=== PATIENT | female | born 1975 | race Two or more races ===

== ENCOUNTER 2020-08-07 11:03 | Outpatient (REF) | payer MEDICAID, SELFPAY | END 2020-08-07 11:04 | disposition home or self-care (01) | LOC: HO.LAB 11:03 | PROVIDERS: PCP Family Medicine; Visit Provider Internal Medicine | DX: Z20.828 Contact with and (suspected) exposure to other viral communicable diseases (principal) | CPT/HCPCS: 36415; 87635 ==

== ENCOUNTER 2020-08-18 07:58 | Outpatient (REF) | payer MEDICAID, SELFPAY ==
[2020-08-18 08:37] LABS: MANUAL DIFF FLAG NO
[2020-08-18 08:47] LABS: Basophils Absolute Auto 0.1 X10*3/uL (0.0-0.2); Basophils Percent Auto 0.6 % (0-2); Eosinophils Absolute Auto 0.3 X10*3/uL (0.0-0.4); Eosinophils Percent Auto 2.6 % (0-4); Hemoglobin 13.3 g/dl (12.0-16.0); Imm Gran Abs Auto 0.04 X10*3/uL (0.00-0.03); Imm Gran Pct Auto 0.4 % (0.0-0.4); Lymphocytes Absolute Auto 2.8 X10*3/uL (1.2-4.9); Lymphocytes Percent Auto 27.8 % (20-40); Mean Corpuscular HGB Conc 32.4 g/dl (31.0-35.0); Mean Corpuscular Hemoglobin 29.6 pg (27.0-33.0); Mean Corpuscular Volume 91.1 fL (80-98); Mean Platelet Volume 10.3 fL (9.4-12.3); Monocytes Absolute Auto 0.6 X10*3/uL (0.1-1.2); Monocytes Percent Auto 5.6 % (2-11); Neutrophils Absolute Auto 6.3 X10*3/uL (2.0-8.3); Platelet Count 343 X10*3/uL (160-400); Red Cell Distribution Width 13.2 % (11.0-16.0); White Blood Count 10.1 X10*3/uL (4.8-10.8)
[2020-08-18 08:49] LABS: Estimated Average Glucose 120 mg/dL; Hemoglobin A1c % 5.8 %
[2020-08-18 09:10] LABS: Magnesium 1.5 mg/dL (1.6-2.6)
[2020-08-18 09:28] LABS: Alanine Aminotransferase 21 U/L (0-31); Alkaline Phosphatase 103 U/L (39-117); Anion Gap 14 (12-20); Aspartate Amino Transferase 17 U/L (5-31); Bilirubin Total 0.5 mg/dL (0.0-1.0); Blood Urea Nitrogen 16 mg/dL (9-16); Calcium 8.9 mg/dL (8.4-10.2); Carbon Dioxide 27 mmol/L (22-29); Chloride 104 mmol/L (96-108); Cholesterol 215 mg/dL; Estimated Glomerular Filt Rate > 60; Glucose Random 126 mg/dL (60-115); HDL Cholesterol 36 mg/dL; LDL Cholesterol Calculated 141 mg/dl; Potassium 3.8 mmol/l (3.3-5.1); Sodium 141 mmol/L (135-145); Total Protein 6.8 g/dL (6.5-8.0); Triglycerides 190 mg/dL
[2020-08-18 09:49] LABS: TSH reflex Free T4 1.14 mIU/mL (0.32-4.0); Vitamin D 25-OH Total 12.2 ng/mL (>30)
[2020-08-20 04:45] LABS: HIV AB/AG Nonreactive (Nonreactive); HIV Num 1 0.07 S/CO (0.00-0.99)
[2020-08-20 05:31] LABS: Vitamin B12 290 pg/mL (200-900)
[2020-08-22 12:47] LABS: Vitamin B1 21 nmol/L (8-30)
== END 2020-08-18 07:59 | disposition home or self-care (01) ==
LOC: HO.LAB 07:58
PROVIDERS: Nurse Practitioner Family; PCP Family Medicine; Visit Provider Family Medicine
DX: Z11.4 Encounter for screening for human immunodeficiency virus [HIV] (principal); R20.0 Anesthesia of skin; R53.83 Other fatigue; I10 Essential (primary) hypertension
CPT/HCPCS: 36415; 80053; 80061; 82306; 82607; 83036; 83735; 84425; 84443; 85025; 87389

== ENCOUNTER 2020-08-24 10:34 | Emergency (ER) | payer MEDICAID, SELFPAY ==
--- NOTE | 2020-08-24 12:04 | ED_ITS ---
HPI - Headache General Chief Complaint: Headache Stated Complaint: HIGH BLOOD PRESSURE Time Seen by Provider: 08/24/20 12:04 Source: patient Mode of arrival: ambulatory History of Present Illness HPI Narrative: Defers a 44-year-old female with past medical history that is significant for anxiety disorder, depression, hypertension, history of breast cancer status post right mastectomy also history of right upper extremity DVT, osteoporosis, gastroesophageal reflux disease as well as longstanding history of alcohol abuse she frequently drinks wine coolers and reports to me that she will frequently go on binges however has been cutting down since her last admission here in December and her last drink was 5 days ago she presents today with complaint of hypertension and headache. She reports to me that she had a routine visit with her primary care doctor today during which she was noted to have high blood pressure 160/126 and similar reading on both hands with her home blood pressure machine she also reported that she had mild headache thus prompting the primary care doctor to advise her to come to the emergency room for further evaluation and treatment. She reports to me that she will gets headaches like this when her blood pressure elevated. She does admit that there was a lapse in her taking her blood pressure medication over the past week or so because the pharmacy did not deliver her medications and delivered him ye sterday. She reports that is taking lisinopril, amlodipine and metoprolol which she took today 4 hours prior to arrival because the medications were delivered today. She otherwise denies any chest pain or shortness of breath. No syncopal episodes. Again her last alcoholic beverage was 5 days ago. States she does not go through withdrawals. She does report to me that her primary care doctor did some routine blood work in her magnesium was slightly on the lower side and she has been taking supplement for this. She denies any weakness. She does have a slight headache that she describes slight pressure in the front of the head and behind the eyes. She otherwise denies any other complaints. MD elicited complaint: headache Pertinent past history: hypertension Onset (ago): hour(s) Onset description: gradually Location: frontal Severity: mild Quality & Timing: aching Relieving factors: other ( Is starting to improve now that she took her blood pressure medication) Context: occurred at rest Associated symptoms: none Treatments prior to arrival: none Related Data Allergies Allergy/AdvReac Type Severity Reaction Status Date / Time amoxicillin [AMOXICILLIN] Allergy Intermediate rash, Unverified 07/19/20 15:11 rash/itching sulfamethoxazole Allergy Intermediate RASH Unverified 07/19/20 15:11 [From BACTRIM] trimethoprim [From BACTRIM] Allergy Intermediate RASH Unverified 07/19/20 15:11 hydrocodone [Hydrocodone] Allergy Mild ITCH Unverified 07/19/20 15:11 ibuprofen [From Motrin] Allergy Mild UPSET Unverified 07/19/20 15:11 STOMACH latex [Latex] Allergy Mild ITCH Unverified 07/19/20 15:11 Sulfa (Sulfonamide Allergy Unknown rash/itchin Verified 11/27/17 00:00 Antibiotics) g amoxicillin Allergy Unknown Uncoded 07/06/20 00:00 bactrim Allergy Unknown Uncoded 07/06/20 00:00 hydrocodone Allergy Unknown Uncoded 07/06/20 00:00 Hydrocodone-Ibuprofen Allergy Unknown rash/itchin Uncoded 11/27/17 00:00 g Latex Allergy Unknown Uncoded 11/27/17 00:00 latex Allergy Unknown Uncoded 07/06/20 00:00 motrin Allergy Unknown Uncoded 07/06/20 00:00 Review of Systems Review of Systems: Constitutional: No Weight loss, No Fever, No Chills, No Night Sweats, No Fatigue, No Malaise ENT/Mouth: No Hearing loss, No Ear Pain, No Nasal Congestion, No Sinus Pain, No Hoarseness, No sore throat, No Rhinorrhea, No Swallowing Difficulty Eyes: No Eye Pain, No Swelling, No Redness, No Foreign Body, No Discharge, No Vision Changes Cardiovascular: No Chest Pain, No SOB, No Dyspnea on Exertion, No Orthopnea, No Edema, No Palpitations Respiratory: No Cough, No Sputum, No Wheezing, No Dyspnea Gastrointestinal: No Nausea, No Vomiting, No Diarrhea, No Constipation, No abdominal Pain, No Hematochezia, No Melena Genitourinary: no irregular bleeding, No Dysuria, No Urinary Frequency, No Hematuria, No Urinary Incontinence, No Urgency, No Flank Pain, No Urinary Flow Changes, No Hesitancy Musculoskeletal: No joint pain, No Myalgias, No Joint Swelling Skin: No Skin Lesions, No rash Neuro: No Weakness, No Numbness, No Paresthesias, No Loss of Consciousness, No Dizziness, + Headache as noted in HPI Psych: No Anxiety/Panic, No Depression, No SI/HI/AH/VH, No Social Issues Heme/Lymph: No Bruising, No Bleeding,No Lymphadenopathy Endocrine: No Polyuria, No Polydipsia, No Temperature Intolerance Yes all other systems are reviewed and are negative [facility] Past Medical History Attestation statement: The following information was validated with the patient. Social History Social History Alcohol intake: current Alcohol intake frequency: a few times a week Smoking Status: Current some day smoker Use of substances other than those prescribed or required for medical reasons: No Advance Directives: Yes Advance Directives on File: Yes Advance Directives Date on File: 01/11/20 Physical Exam Vital Signs: Vital Signs: Vital Signs Temp Pulse Resp BP Pulse Ox 08/24/20 15:14 91 18 138/101 H 08/24/20 15:13 91 138/101 H 08/24/20 13:50 84 155/114 H 08/24/20 13:23 95 16 155/114 H 99 08/24/20 12:15 98.9 F 89 17 168/114 H 98 Body Mass Index 27.3 Reviewed Const: General: cooperative and healthy appearing; No acute distress or intoxicated appearing Nutritional Appearance: average body habitus Orientation/consciousness: patient oriented x3 HENMT: Head: Yes normal to inspection Ears: hearing grossly normal bilaterally Eyes: General: appearance normal, both eyes and all related structures Visual Cordero: normal visual cordero by confrontation Neck: Neck: Yes normal visual inspection and No tender Thyroid: Thyroid normal Chest: Chest palpation & inspection: normal inspection of the chest Resp: Effort & Inspection: normal respiratory effort Cardio: Jugular venous distension: no JVD GI: Inspection: Yes normal to inspection Percussion: Yes normal to percussion Auscultation: normal bowel sounds : General: Yes no CVA tenderness Back/Spine/Pelvis: Back: no CVA tenderness Skin: General skin exam: no rashes or lesions noted Neuro: General: patient oriented x3 Extrem: General: Yes normal to inspection Course Course Course Narrative: hemodynamically stable. Blood pressure 168/114 still has slight headache consistent with previous. No sudden or thunderclap headache. No signs or symptoms of alcohol withdrawal. Will check labs, lytes make sure no electrolyte derangement, normal sinus rhythm on Bedside monitor. No ectopy. Will get head CT given her significant history rule out acute intracranial process / bleed. Reevaluation(s) Reevaluation #1: resting comfortably no acute distress. She had family member deliver her [employer] she ate that and no other complaints. Hemodynamically stable. Blood pressure came down to 130/100 after 1 dose of clonidine. Head CT negative. Labs overall stable. Slight hypo Mag of 1.5 she did start taking her magnesium supplement today. In addition she is already on metoprolol / lisinopril and amlodipine which she resumed today will not make any adjustments will advise her to continue taking these and stressed the importance of adherence /potential complications of hypertension. MDM - Headache Differential Diagnosis Differential diagnosis: Likely migraine ( Hypertensive headache), tension headache and headache; Unlikely subarachnoid hemorrhage, meningitis, sinusitis and postconcussion syndrome Medical Records Attestation: I reviewed the patient's medical records. Medical records narrative: 01/10/2020 admission/ discharge note reviewed with a discharge diagnosis of hypertensive urgency, elevated bilirubin, alcohol abuse. Lab Data Result diagrams: 08/24/20 13:36 08/24/20 13:36 Labs: Lab Results 08/24/20 08/24/20 08/24/20 Range/Units 13:36 13:36 13:36 WBC 9.9 (4.8-10.8) X10*3/uL RBC 4.40 (4.20-5.50) X10*6/uL Hgb 13.3 (12.0-16.0) g/dl Hct 40.2 (37-47) % MCV 91.4 (80-98) fL MCH 30.2 (27.0-33.0) pg MCHC 33.1 (31.0-35.0) g/dl RDW 13.2 (11.0-16.0) % Plt Count 310 (160-400) X10*3/uL MPV 10.7 (9.4-12.3) fL Immature Gran % (Auto) 0.5 H (0.0-0.4) % Neut % (Auto) 66.8 (45-73) % Lymph % (Auto) 24.1 (20-40) % Cuming % (Auto) 5.9 (2-11) % Eos % (Auto) 2.2 (0-4) % Baso % (Auto) 0.5 (0-2) % Lymph # (Auto) 2.4 (1.2-4.9) X10*3/uL Cuming # (Auto) 0.6 (0.1-1.2) X10*3/uL Eos # (Auto) 0.2 (0.0-0.4) X10*3/uL Baso # (Auto) 0.1 (0.0-0.2) X10*3/uL Abs Immat Gran (auto) 0.05 H (0.00-0.03) X10*3/uL Absolute Neuts (auto) 6.6 (2.0-8.3) X10*3/uL Absolute Nucleated RBC 0.000 (0.0-0.012) X10*3/uL Nucleated RBC % (auto) 0.0 (0.0-0.2) /100WBC Sodium 140 (135-145) mmol/L Potassium 4.3 (3.3-5.1) mmol/l Chloride 104 (96-108) mmol/L Carbon Dioxide 27 (22-29) mmol/L Anion Gap 13 (12-20) BUN 16 (9-16) mg/dL Creatinine 0.77 (0.5-1.4) mg/dL Estim Creat Clear Calc 99.0 Estimated GFR > 60 Random Glucose 110 (60-115) mg/dL Calcium 8.7 (8.4-10.2) mg/dL Magnesium 1.8 (1.6-2.6) mg/dL Total Bilirubin 0.5 (0.0-1.0) mg/dL Direct Bilirubin 0.2 (0.0-0.5) mg/dL AST 21 (5-31) U/L ALT 25 (0-31) U/L Alkaline Phosphatase 89 (39-117) U/L Total Protein 6.4 L (6.5-8.0) g/dL Albumin 3.7 (3.5-5.0) g/dL Urine Color Urine Appearance Urine pH (5.0-8.0) Ur Specific [place] (1.005-1.025) Urine Protein (NEG-TRACE) MG/DL Urine Glucose (UA) (NEG) MG/DL Urine Ketones (NEG) MG/DL Urine Blood (NEG) Urine Nitrite (NEG) Ur Leukocyte Esterase (NEG) Urine RBC (0) /HPF Urine WBC (0-4) /HPF Ur Squamous Epith Cells /LPF Urine Bacteria /LPF Urine Mucus /LPF Urine Opiates Screen (Not Detect) Ur Barbiturates Screen (Not Detect) Ur Phencyclidine Scrn (Not Detect) Ur Amphetamines Screen (Not Detect) U Benzodiazepines Scrn (Not Detect) Urine Cocaine Screen (Not Detect) U Marijuana (THC) Screen (Not Detect) Ethyl Alcohol 08/24/20 08/24/20 08/24/20 Range/Units 13:36 13:53 13:53 WBC (4.8-10.8) X10*3/uL RBC (4.20-5.50) X10*6/uL Hgb (12.0-16.0) g/dl Hct (37-47) % MCV (80-98) fL MCH (27.0-33.0) pg MCHC (31.0-35.0) g/dl RDW (11.0-16.0) % Plt Count (160-400) X10*3/uL MPV (9.4-12.3) fL Immature Gran % (Auto) (0.0-0.4) % Neut % (Auto) (45-73) % Lymph % (Auto) (20-40) % Cuming % (Auto) (2-11) % Eos % (Auto) (0-4) % Baso % (Auto) (0-2) % Lymph # (Auto) (1.2-4.9) X10*3/uL Cuming # (Auto) (0.1-1.2) X10*3/uL Eos # (Auto) (0.0-0.4) X10*3/uL Baso # (Auto) (0.0-0.2) X10*3/uL Abs Immat Gran (auto) (0.00-0.03) X10*3/uL Absolute Neuts (auto) (2.0-8.3) X10*3/uL Absolute Nucleated RBC (0.0-0.012) X10*3/uL Nucleated RBC % (auto) (0.0-0.2) /100WBC Sodium (135-145) mmol/L Potassium (3.3-5.1) mmol/l Chloride (96-108) mmol/L Carbon Dioxide (22-29) mmol/L Anion Gap (12-20) BUN (9-16) mg/dL Creatinine (0.5-1.4) mg/dL Estim Creat Clear Calc Estimated GFR Random Glucose (60-115) mg/dL Calcium (8.4-10.2) mg/dL Magnesium (1.6-2.6) mg/dL Total Bilirubin (0.0-1.0) mg/dL Direct Bilirubin (0.0-0.5) mg/dL AST (5-31) U/L ALT (0-31) U/L Alkaline Phosphatase (39-117) U/L Total Protein (6.5-8.0) g/dL Albumin (3.5-5.0) g/dL Urine Color YELLOW Urine Appearance CLEAR Urine pH 7.0 (5.0-8.0) Ur Specific [place] 1.020 (1.005-1.025) Urine Protein NEG (NEG-TRACE) MG/DL Urine Glucose (UA) NEG (NEG) MG/DL Urine Ketones NEG (NEG) MG/DL Urine Blood NEG (NEG) Urine Nitrite NEG (NEG) Ur Leukocyte Esterase NEG (NEG) Urine RBC 0 (0) /HPF Urine WBC 0 (0-4) /HPF Ur Squamous Epith Cells 1+ /LPF Urine Bacteria NONE /LPF Urine Mucus TRACE /LPF Urine Opiates Screen Not Detected (Not Detect) Ur Barbiturates Screen Not Detected (Not Detect) Ur Phencyclidine Scrn Not Detected (Not Detect) Ur Amphetamines Screen Not Detected (Not Detect) U Benzodiazepines Scrn Not Detected (Not Detect) Urine Cocaine Screen Not Detected (Not Detect) U Marijuana (THC) Screen Not Detected (Not Detect) Ethyl Alcohol Cancelled Imaging Data CT scan - head: Radiologist's impression: [address] [address] [address] Scan Report Signed Patient: Maged Cast#: [id number] : 1975Acct:[id number] Age/Sex: 44 / FADM Date: 08/24/20 Loc: HO.ED Attending Dr: Ordering Physician: Ernesto Arias RADIO ELECTRICIAN Date of Service: 08/24/20 Procedure(s): CT head/brain wo con Accession Number(s): [id number] cc: Ernesto Arias RADIO ELECTRICIAN~ EXAMINATION: CT HEAD WITHOUT CONTRAST CLINICAL INFORMATION: Headache and hypertension. COMPARISON: CT brain dated 08/26/2015; MRI dated 07/02/2015. TECHNIQUE: Contiguous axial imaging was performed from the skull base to vertex without intravenous administration of contrast. Multiplanar reformatted images are submitted. This CT examination was performed using dose optimization techniques as appropriate, variously including the following: *Automated exposure control *Adjustment of mA and/or kV according to patient size (this includes techniques or standardized protocols for targeted exams where dose is matched to indication/reason for exam; i.e. extremities or head) *Use of iterative reconstruction technique DLP: 639 mGy-cm FINDINGS: There is no evidence of acute intracranial hemorrhage or territorial infarction. No abnormal mass effect or midline shift is seen. Jimenez to white matter differentiation is well preserved. No extra-axial fluid collections are identified. The ventricles are normal in size. There is no abnormal attenuation within the brain parenchyma. The osseous structures and soft tissues are normal. The mastoid air cells and visualized portions of the paranasal sinuses are well aerated. CT/CT head/brain wo con IMPRESSION: No acute intracranial pathology. Dictated By:POLO MARCOS MD Signed By:<Electronically signed by POLO MARCOS MD in OV>08/24/20 1245 DD/ 1211 TD/TT: Assessment Services Manager: ALEXUS Discharge Plan Discharge Clinical Impression: Hypomagnesemia Headache Qualifiers: Headache type: unspecified Headache chronicity pattern: unspecified pattern Intractability: not intractable Qualified Code(s): R51.9 - Headache, unspecified Hypertension Qualifiers: Hypertension type: unspecified Qualified Code(s): I10 - Essential (primary) hypertension Patient Disposition: Home, Self-Care Instructions: Acute Headache (ED), Hypertension (ED), Hypomagnesemia (ED) Additional Instructions: please take blood pressure medication as prescribed also taking a magnesium supplement as prescribed Stop drinking alcohol Seek detox Return if any concerns or worsening symptoms otherwise follow up with her primary care doctor for blood pressure recheck in 3 days Thank you Referrals: Shereen Latham MD [Primary Care Provider] - 2 days
--- NOTE | 2020-08-24 12:11 | CT_ITS ---
EXAMINATION: CT HEAD WITHOUT CONTRAST CLINICAL INFORMATION: Headache and hypertension. COMPARISON: CT brain dated 08/26/2015; MRI dated 07/02/2015. TECHNIQUE: Contiguous axial imaging was performed from the skull base to vertex without intravenous administration of contrast. Multiplanar reformatted images are submitted. This CT examination was performed using dose optimization techniques as appropriate, variously including the following: *Automated exposure control *Adjustment of mA and/or kV according to patient size (this includes techniques or standardized protocols for targeted exams where dose is matched to indication/reason for exam; i.e. extremities or head) *Use of iterative reconstruction technique DLP: 639 mGy-cm FINDINGS: There is no evidence of acute intracranial hemorrhage or territorial infarction. No abnormal mass effect or midline shift is seen. Jimenez to white matter differentiation is well preserved. No extra-axial fluid collections are identified. The ventricles are normal in size. There is no abnormal attenuation within the brain parenchyma. The osseous structures and soft tissues are normal. The mastoid air cells and visualized portions of the paranasal sinuses are well aerated. CT/CT head/brain wo con IMPRESSION: No acute intracranial pathology.
[2020-08-24 12:15] VITALS: BP 168/114; PULSE 89; RESP 17; TEMP 37.2; O2SAT 98; BMI 27.3
[2020-08-24 13:23] VITALS: BP 155/114; PULSE 95; RESP 16; O2SAT 99
[2020-08-24 13:42] LABS: MANUAL DIFF FLAG NO
[2020-08-24 13:47] LABS: Basophils Absolute Auto 0.1 X10*3/uL (0.0-0.2); Basophils Percent Auto 0.5 % (0-2); Eosinophils Absolute Auto 0.2 X10*3/uL (0.0-0.4); Eosinophils Percent Auto 2.2 % (0-4); Hematocrit 40.2 % (37-47); Hemoglobin 13.3 g/dl (12.0-16.0); Imm Gran Abs Auto 0.05 X10*3/uL (0.00-0.03); Imm Gran Pct Auto 0.5 % (0.0-0.4); Lymphocytes Absolute Auto 2.4 X10*3/uL (1.2-4.9); Lymphocytes Percent Auto 24.1 % (20-40); Mean Corpuscular HGB Conc 33.1 g/dl (31.0-35.0); Mean Corpuscular Hemoglobin 30.2 pg (27.0-33.0); Mean Corpuscular Volume 91.4 fL (80-98); Mean Platelet Volume 10.7 fL (9.4-12.3); Monocytes Absolute Auto 0.6 X10*3/uL (0.1-1.2); Monocytes Percent Auto 5.9 % (2-11); Neutrophils Absolute Auto 6.6 X10*3/uL (2.0-8.3); Neutrophils Percent Auto 66.8 % (45-73); Platelet Count 310 X10*3/uL (160-400); Red Cell Distribution Width 13.2 % (11.0-16.0); White Blood Count 9.9 X10*3/uL (4.8-10.8)
[2020-08-24 13:50] VITALS: BP 155/114; PULSE 84
[2020-08-24] MEDS: cloNIDine HCL 0.1 MG TABLET PO ×2 (13:50→15:13)
[2020-08-24] MEDS: Acetaminophen 325 MG TABLET 650 MG PO (13:50)
[2020-08-24 14:01] LABS: Glucose Urine UA NEG (NEG); Leukocyte Esterase Urine NEG (NEG); Nitrite Urine NEG (NEG); Urine Blood NEG (NEG); Urine Ketones NEG (NEG); Urine Protein NEG (NEG-TRACE)
[2020-08-24 14:07] LABS: Magnesium 1.8 mg/dL (1.6-2.6)
[2020-08-24 14:07] LABS: Appearance Urine CLEAR; Color Urine YELLOW
[2020-08-24 14:09] LABS: Alanine Aminotransferase 25 U/L (0-31); Albumin Level 3.7 g/dL (3.5-5.0); Alkaline Phosphatase 89 U/L (39-117); Anion Gap 13 (12-20); Aspartate Amino Transferase 21 U/L (5-31); Bilirubin Direct 0.2 mg/dL (0.0-0.5); Bilirubin Total 0.5 mg/dL (0.0-1.0); Blood Urea Nitrogen 16 mg/dL (9-16); Calcium 8.7 mg/dL (8.4-10.2); Carbon Dioxide 27 mmol/L (22-29); Chloride 104 mmol/L (96-108); Estimated Glomerular Filt Rate > 60; Glucose Random 110 mg/dL (60-115); Potassium 4.3 mmol/l (3.3-5.1); Sodium 140 mmol/L (135-145); Total Protein 6.4 g/dL (6.5-8.0)
[2020-08-24 14:19] LABS: RBC Urine 0 /HPF (0); WBC Urine 0 /HPF (0-4)
[2020-08-24 14:20] LABS: Mucus Urine TRACE /LPF; Squamous Epithelial Cell Urine 1+ /LPF
[2020-08-24 14:32] LABS: Amphetamine Screen Urine Not Detected (Not Detect); Barbiturates, Urine Not Detected (Not Detect); Benzodiazepines Screen Urine Not Detected (Not Detect); Cannabinoid Screen Urine Not Detected (Not Detect); Cocaine Screen Urine Not Detected (Not Detect); Opiate Screen Urine Not Detected (Not Detect); Phencyclidine Screen Urine Not Detected (Not Detect)
[2020-08-24 15:13] VITALS: BP 138/101; PULSE 91
[2020-08-24 15:14] VITALS: BP 138/101; PULSE 91; RESP 18
[2020-08-24 16:17] VITALS: BP 135/77; PULSE 88
== END 2020-08-24 16:18 | disposition home or self-care (01) ==
PROVIDERS: Nurse Practitioner Primary Care; Emergency Provider Emergency Medicine; PCP Family Medicine
DX: R51.9 Headache, unspecified (principal); I10 Essential (primary) hypertension; E83.42 Hypomagnesemia; F17.200 Nicotine dependence, unspecified, uncomplicated; F10.10 Alcohol abuse, uncomplicated; Z79.899 Other long term (current) drug therapy
CPT/HCPCS: 36415; 70450; 80048; 80076; 80307; 81001; 83735; 85025; 99284

== ENCOUNTER 2020-09-03 19:38 | Emergency (ER) | payer MEDICAID, SELFPAY ==
[2020-09-03 20:03] VITALS: BP 180/95; PULSE 98; RESP 18; TEMP 36.6; O2SAT 99; BMI 27.3
--- NOTE | 2020-09-03 21:09 | XR_ITS ---
EXAMINATION: RIGHT ANKLE 3 VIEWS CLINICAL INFORMATION: Right ankle pain after fall. COMPARISON: None. TECHNIQUE: AP, lateral, oblique views of the right ankle were obtained. FINDINGS: There is soft tissue swelling overlying the lateral malleolus. Lateral to the talus, inferior to the lateral malleolus, there is a khanh of ossification. There are moderate-sized calcaneal spurs. There is no ankle joint effusion. XR/XR ankle RT min 3V IMPRESSION: Soft tissue swelling overlying lateral malleolus. Inferior to this, there is a khanh of ossification lateral to the talus which is nonspecific, though could correspond to a tiny avulsion. Calcaneal spurs.
--- NOTE | 2020-09-03 21:09 | ED_ITS ---
HPI - Extremity Injury (Lower) General Chief Complaint: Extremity Injury, Lower Stated Complaint: fall Time Seen by Provider: 09/03/20 21:09 Source: patient Mode of arrival: wheelchair History of Present Illness HPI Narrative: This is a 44-year-old female who presents after having misstepped down 3 steps causing her right ankle to twist and subsequent pain and inability to weightbear. She denies any numbness / tingling / weakness distal to the ankle and states that she already has an ACL injury on the left knee. Otherwise, she states that she no longer gets her menstrual periods. Related Data Allergies Allergy/AdvReac Type Severity Reaction Status Date / Time amoxicillin [AMOXICILLIN] Allergy Intermediate rash, Verified 09/03/20 21:42 rash/itching sulfamethoxazole Allergy Intermediate RASH Verified 09/03/20 21:42 [From BACTRIM] trimethoprim [From BACTRIM] Allergy Intermediate RASH Verified 09/03/20 21:42 hydrocodone [Hydrocodone] Allergy Mild ITCH Verified 09/03/20 21:42 ibuprofen [From Motrin] Allergy Mild UPSET Verified 09/03/20 21:42 STOMACH latex [Latex] Allergy Mild ITCH Verified 09/03/20 21:42 Sulfa (Sulfonamide Allergy Unknown rash/itchin Verified 09/03/20 21:42 Antibiotics) g amoxicillin Allergy Unknown Unknown Uncoded 09/03/20 21:42 bactrim Allergy Unknown Unknown Uncoded 09/03/20 21:42 hydrocodone Allergy Unknown Unknown Uncoded 09/03/20 21:42 Hydrocodone-Ibuprofen Allergy Unknown rash/itchin Uncoded 11/27/17 00:00 g Latex Allergy Unknown Unknown Uncoded 09/03/20 21:42 latex Allergy Unknown Unknown Uncoded 09/03/20 21:42 motrin Allergy Unknown Unknown Uncoded 09/03/20 21:42 Review of Systems Review of Systems: Pertinent positives and negatives as stated in HPI 10 point review of systems is otherwise negative. [facility] Past Medical History Source: nursing notes reviewed Social History Social History Alcohol intake: current Alcohol intake frequency: a few times a week Smoking Status: Current some day smoker Use of substances other than those prescribed or required for medical reasons: No Advance Directives: No Advance Directives Information Provided: No Advance Directives Date on File: 01/11/20 Physical Exam Vital Signs: Vital Signs: Vital Signs Temp Pulse Resp BP Pulse Ox 09/03/20 20:03 97.9 F 98 18 180/95 H 99 Body Mass Index 27.3 VITAL SIGNS: Reviewed. GENERAL: Well developed, well nourished, in no acute distress. HEAD: Normocephalic/atraumatic, EYES: PERRLA, EOMI intact without pain, no nystagmus/pallor/icterus noted EARS: Ext canals without abnormality, TMs non-bulging and non-erythematous NOSE: Nares patent bilateral OROPHARYNX: no oral lesions noted, posterior pharynx clear and non-erythematous without noted tonsillar enlargement/erythema/exudates NECK: Supple, no adenopathy LUNGS: Normal breath sounds. No adventitious sounds or accessory muscle use. SpO2<99> CARDIOVASCULAR: Regular rate and rhythm without noted murmurs, no JVD or lower extremity edema. ABDOMEN: Soft, non-tender, non-distended with bowel sounds. No rigidity. No guarding. No palpable masses or hernias noted MUSCULOSKELETAL: No tenderness, deformities, or effusions noted on gross inspection. EXTREMITIES: No cyanosis, clubbing or edema; RIGHT ANKLE: Swelling noted to the lateral malleolus, capillary refill less than 3 seconds, neurovascularly intact otherwise with palpable DP/ PT pulses. SKIN: Inspection of the skin reveals no rashes, ulcerations, jaundice, pallor, or petechiae. NEUROLOGIC: Alert and oriented x 4. Strength and sensation to light touch were grossly intact x 4. Course Course Course Narrative: This is a 44-year-old female with history and clinical presentation most consistent with likely right ankle sprain but will evaluate for the possibility of fracture/dislocation and she will be treated with analgesics And ice. On review of all investigations x-ray findings are consistent with likely sprain although there is an equivocal finding for possible avulsion. Will provide patient with Zay wrap and crutches and instructions to follow-up with orthopedics tomorrow morning by calling the office. Discharge Plan Discharge Clinical Impression: Ankle sprain and strain Patient Disposition: Home, Self-Care Instructions: Ankle Sprain (ED) Additional Instructions: 1. Tylenol 1000 mg, orally, every 6 hours as needed for pain control. Do not exceed 4000 mg within 24 hours. 2. Recommend lidocaine patch, these are available [id number] at any [facility]/ [facility]/[employer], apply to area of maximal tenderness as directed on the outside packaging. 3. Apply ice, 10-15 minutes, 3 to 4 times a day, please do not apply directly to exposed skin. 4. Keep extremity elevated as much as possible and use crutches with gradual increase in weight-bearing as tolerated. 4. Please follow-up with the orthopedic office here at [facility] for further evaluation should do not show any improvement over the next 3-5 days. The patient and/or family acknowledge understanding of results (as applicable), diagnosis, treatment plan, need for follow up, and symptoms that should prompt a return to the emergency room. Referrals: Shereen Latham MD [Primary Care Provider] - 2 days ( Right ankle sprain possible avulsion fracture) Anselmo Gates MD [Physician] - 2 days ( right ankle sprain, radiologic evidence equivocal for possible avulsion.)
[2020-09-03] MEDS: Acetaminophen 325 MG TABLET 975 MG PO (21:46)
== END 2020-09-03 22:36 | disposition home or self-care (01) ==
PROVIDERS: Emergency Provider Student in an Organized Health Care Education/Training Program; PCP Family Medicine
DX: S93.401A Sprain of unspecified ligament of right ankle, initial encounter (principal); M25.571 Pain in right ankle and joints of right foot; W10.9XXA Fall (on) (from) unspecified stairs and steps, initial encounter; Y93.01 Activity, walking, marching and hiking; Y92.9 Unspecified place or not applicable; Y99.9 Unspecified external cause status; F17.200 Nicotine dependence, unspecified, uncomplicated; Z71.6 Tobacco abuse counseling
CPT/HCPCS: 73610; 99283

== ENCOUNTER 2020-09-24 15:00 | Outpatient (RCR) | payer MEDICAID, SELFPAY ==
--- NOTE | 2020-09-13 14:56 | MHC.PT.EP ---
[facility] [place] Office [place] Office [place] Office [address] [phone] F: [phone] F: [phone] F: [phone] F: [phone] Physical Therapy Plan of Care Date of Evaluation: 09/13/20 Date of Surgery: Diagnosis: L knee ACL rupture, lateral meniscus tear, primary OA. ACL PREHAB-ROM, QUAD STRENGTH Assessment: 44 y/o F referred to PT for ACL prehab-ROM, quad strength other tear of lateral meniscus of left knee as current injury initial encounter, rupture of anterior cruciate ligament of left knee initial encounter, and primary osteoarthritis of left knee. She fell about one year ago injuring her L knee. Since then, her L knee gives out often and she falls a lot. She fell one month ago spraining her R ankle. Anticipates L ACL repair but will have prehab first. Currently she has pain and difficulty with sitting > 30min, standing > 30min, walking, sleeping, and ascending/descending stairs (step to pattern.) PMH signifcant for R breast CA s/p mastectomy 2009, HTN, anxiety, depression, hx ETOH. Examination shows decreased L quad strength, decreased B hip strength, slightly decreased knee flexion, impaired balance, and impaired gait pattern. Recommend PT2x/week for 4 weeks to address impairments, implement HEP, and optimize functional mobility. Frequency and Duration: The patient will be seen 2x/week for 4 weeks Short Term Goals: 2 weeks: 1. Initiate HEP 2. Improve L knee flexion to 125 3. Demonstrate 3x10 SLR without quad lag Usp Goals: 4 weeks: 1. Pt will ambulate > 25min and pain < 3/10 2. Pt will ascend.descend stairs in step through pattern and one rail 3. I with HEP and self management of sx Treatment Plan: Modalities to reduce pain, spasms and effusion. Manual therapy to restore motion and function. Therapeutic exercise to improve strength and flexibility. Neuromuscular re-education for posture and balance. Therapeutic activities to return to functional activities of daily living. Please sign and return to therapist. Thank you for your referral.
--- NOTE | 2020-11-12 08:20 | MHC.PT.DC ---
[facility] [place] Office [place] Office [place] Office [address] 140 [facility] [phone] F: [phone] F: [phone] F: [phone] F: [phone] Physical Therapy Discharge Report Diagnosis: L knee ACL rupture, lateral meniscus tear, primary OA. ACL PREHAB-ROM, QUAD STRENGTH Date of Surgery: Date of Evaluation: 09/13/20 Date of Discharge: 11/12/20 Treatments to Date: 4 Cancellations to Date: 0 No Shows to Date: 1 Discharge Status: Patient Elected to Stop Recommend MD Follow-up Discharge Summary: D/c due to other health reasons. Patient with poorly controlled BP and she has been following up with her PCP. At this time, will hold PT until BP regulated. Electronically signed by: Lucille Flores, PT Please sign and return to therapist. Thank you for your referral.
== END 2020-11-12 08:20 | disposition other institution (70) ==
LOC: HO.PT 15:00
PROVIDERS: PCP Family Medicine; Visit Provider Physician Assistant
DX: S83.282D Other tear of lateral meniscus, current injury, left knee, subsequent encounter (principal); S83.512D Sprain of anterior cruciate ligament of left knee, subsequent encounter; M17.12 Unilateral primary osteoarthritis, left knee
CPT/HCPCS: 97110; 97162

== ENCOUNTER 2021-07-26 12:36 | Outpatient (REF) | payer MEDICAID, SELFPAY ==
--- NOTE | ~2021-07-26 | XR_ITS ---
EXAMINATION: KNEE X-RAY CLINICAL INFORMATION: Pain COMPARISON: Previous knee x-rays October 2019 and November 2011 TECHNIQUE: Standing AP view of both knees and lateral and sunrise view of the left knee FINDINGS: Left: Bone alignment is normal. No fracture or dislocation is seen. There is mild arthritis at the medial femoral tibial and patellofemoral joints with joint space narrowing and osteophyte formation. There is a small osteophyte at the quadriceps tendon insertion to the patella. There is a small joint effusion. Standing AP view of the right knee demonstrates previous ACL repair. There is arthritis at the left at the lateral and medial femoral tibial joints. XR/XR knee LT 2V IMPRESSION: Mild left knee arthritis at the medial femoral tibial and patellofemoral joints and small joint effusion.
--- NOTE | ~2021-07-26 | XR_ITS ---
EXAMINATION: KNEE X-RAY CLINICAL INFORMATION: Pain COMPARISON: Previous knee x-rays October 2019 and November 2011 TECHNIQUE: Standing AP view of both knees and lateral and sunrise view of the left knee FINDINGS: Left: Bone alignment is normal. No fracture or dislocation is seen. There is mild arthritis at the medial femoral tibial and patellofemoral joints with joint space narrowing and osteophyte formation. There is a small osteophyte at the quadriceps tendon insertion to the patella. There is a small joint effusion. Standing AP view of the right knee demonstrates previous ACL repair. There is arthritis at the left at the lateral and medial femoral tibial joints. XR/XR knee standing BI IMPRESSION: Mild left knee arthritis at the medial femoral tibial and patellofemoral joints and small joint effusion.
== END 2021-07-26 12:37 | disposition home or self-care (01) ==
LOC: HO.HOSX 12:36
PROVIDERS: Visit Provider Physician Assistant
DX: M17.32 Unilateral post-traumatic osteoarthritis, left knee (principal); M25.561 Pain in right knee
CPT/HCPCS: 20610; 73560; 73565; 99212

== ENCOUNTER 2021-07-26 23:23 | Emergency (ER) | payer MEDICAID, SELFPAY ==
--- NOTE | 2021-07-26 | ECG_ITS ---
Test Reason : CHEST TIGHTNESS Blood Pressure : / mmHG Vent. Rate : 106 BPM Atrial Rate : 106 BPM P-R Int : 170 ms QRS Dur : 086 ms QT Int : 362 ms P-R-T Axes : 063 011 113 degrees QTc Int : 480 ms Sinus tachycardia T wave abnormality, consider lateral ischemia ST elevation in Inferior leads Abnormal ECG When compared with ECG of 08-JAN-2020 07:55, T wave inversion now evident in Lateral leads ST elevation now present in Inferior leads Referred By: Generic ED Physician Electronically Signed By:DONAVAN LOZANO
--- NOTE | ~2021-07-26 | XR_ITS ---
EXAMINATION: XR CHEST CLINICAL INFORMATION: Chest tightness COMPARISON: 01/08/2020 TECHNIQUE: 2 views of the chest were obtained. FINDINGS: The lungs are clear with no focal consolidation. No evidence of pneumothorax, pulmonary edema, or pleural effusions. The cardiomediastinal silhouette is unremarkable. No acute osseous findings. XR/XR chest 2V IMPRESSION: No acute cardiopulmonary findings.
[2021-07-26 23:41] VITALS: BP 149/82; PULSE 110; RESP 20; TEMP 36.6; O2SAT 97; BMI 30.9
[2021-07-27 01:45] LABS: MANUAL DIFF FLAG NO
[2021-07-27 01:57] LABS: Basophils Absolute Auto 0.1 X10*3/uL (0.0-0.2); Basophils Percent Auto 0.8 % (0-2); Eosinophils Absolute Auto 0.2 X10*3/uL (0.0-0.4); Eosinophils Percent Auto 2.5 % (0-4); Hematocrit 37.1 % (37-47); Hemoglobin 12.5 g/dl (12.0-16.0); Imm Gran Abs Auto 0.01 X10*3/uL (0.00-0.03); Imm Gran Pct Auto 0.2 % (0.0-0.4); Lymphocytes Percent Auto 31.8 % (20-40); Mean Corpuscular HGB Conc 33.7 g/dl (31.0-35.0); Mean Platelet Volume 10.7 fL (9.4-12.3); Monocytes Absolute Auto 0.6 X10*3/uL (0.1-1.2); Monocytes Percent Auto 8.6 % (2-11); Neutrophils Absolute Auto 3.6 X10*3/uL (2.0-8.3); Neutrophils Percent Auto 56.1 % (45-73); Platelet Count 248 X10*3/uL (160-400); Red Blood Count 4.17 X10*6/uL (4.20-5.50); White Blood Count 6.4 X10*3/uL (4.8-10.8)
[2021-07-27 02:03] LABS: COVID-19 Test Negative (Negative)
[2021-07-27 02:07] LABS: Alanine Aminotransferase 35 U/L (0-31); Alkaline Phosphatase 102 U/L (39-117); Anion Gap 18 (12-20); Aspartate Amino Transferase 31 U/L (5-31); Bilirubin Total 0.8 mg/dL (0.0-1.0); Blood Urea Nitrogen 16 mg/dL (9-16); Calcium 9.3 mg/dL (8.4-10.2); Carbon Dioxide 23 mmol/L (22-29); Chloride 102 mmol/L (96-108); Creatinine Clr Calc Pharmacy 79.9; Estimated Glomerular Filt Rate 59; Glucose Random 121 mg/dL (60-115); Potassium 2.9 mmol/L (3.3-5.1); Sodium 140 mmol/L (135-145); Total Protein 6.8 g/dL (6.5-8.0)
[2021-07-27 02:08] LABS: Troponin-I High Sensitivity 53.9 ng/L (<3.5-17.0)
--- NOTE | 2021-07-27 03:16 | ED_ITS ---
HPI - General Adult General Chief complaint: Anxiety Stated complaint: Chest congestion Time Seen by Provider: 07/27/21 02:14 Source: patient Mode of arrival: ambulatory Limitations: no limitations History of Present Illness HPI narrative: 45-year-old female who presents emergency department for evaluation of chest pain. She states that the pain came on gradually 2 nights prior. She describes the pain as a tightness and sharp pain. She states that the tightness is a constant pain which is located in her left chest. The pain is 6/10 at its worst. She states she has an intermittent sharp stabbing pain which will last seconds and she gets multiple times a day. She states that she is feeling short of breath and has dyspnea on exertion. She states that the tightness is worse with breathing. She denied fever, chills, nausea, vomiting, diarrhea. The patient states she does use intranasal cocaine but has not used in 2 weeks. She states she does have significant anxiety and she did drink alcohol prior to coming to the emergency room to try the treat her anxiety. Related Data Home Medications Medication Instructions Recorded Confirmed cetirizine [Zyrtec] PO 07/26/21 lisinopril 30 mg tablet 30 mg PO DAILY 07/26/21 omeprazole 40 mg capsule,delayed 40 mg PO DAILY 07/26/21 release Allergies Allergy/AdvReac Type Severity Reaction Status Date / Time amoxicillin [AMOXICILLIN] Allergy Intermediate rash, Verified 07/26/21 23:41 rash/itching sulfamethoxazole Allergy Intermediate RASH Verified 07/26/21 23:41 [From BACTRIM] trimethoprim [From BACTRIM] Allergy Intermediate RASH Verified 07/26/21 23:41 hydrocodone [Hydrocodone] Allergy Mild ITCH Verified 07/26/21 23:41 ibuprofen [From Motrin] Allergy Mild UPSET Verified 07/26/21 23:41 STOMACH latex [Latex] Allergy Mild ITCH Verified 07/26/21 23:41 Sulfa (Sulfonamide Allergy Unknown rash/itchin Verified 07/26/21 23:41 Antibiotics) g amoxicillin Allergy Unknown Unknown Uncoded 07/26/21 23:41 bactrim Allergy Unknown Unknown Uncoded 07/26/21 23:41 hydrocodone Allergy Unknown Unknown Uncoded 07/26/21 23:41 Hydrocodone-Ibuprofen Allergy Unknown rash/itchin Uncoded 07/26/21 23:41 g Latex Allergy Unknown Unknown Uncoded 07/26/21 23:41 latex Allergy Unknown Unknown Uncoded 07/26/21 23:41 motrin Allergy Unknown Unknown Uncoded 07/26/21 23:41 Review of Systems Review of Systems: Yes all other systems are reviewed and are negative [facility] Past Medical History [facility] Narrative: Past medical history: Hypertension, GERD, anxiety, fibromyalgia, arthritis, COVID infection, breast cancer 11 years prior Past surgical history: Right mastectomy 11 years prior, right ACL repair, hysterectomy. Social history: The patient occasionally smokes cigarettes. She states that she drinks 4 alcoholic beverages per day. She admits to using intranasal cocaine but has not used in 2 weeks. Medical History Hypertension Social History Social History Alcohol intake: current Alcohol intake frequency: a few times a week Advance Directives: Yes Advance Directives on File: Yes Advance Directives Date on File: 01/11/20 Patient : No Physical Exam Vital Signs: Vital Signs: Last Vital Signs Temp 97.8 F 07/26/21 23:41 Pulse 106 H 07/27/21 03:27 Resp 18 07/27/21 03:27 BP 138/91 H 07/27/21 03:27 Pulse Ox 98 07/27/21 03:27 Body Mass Index 30.9 Const: General: cooperative and no acute distress Orientation/consci ousness: oriented to person and oriented to place Limitations: no limitations HENMT: Head: Yes normal to inspection, Yes normocephalic and Yes atraumatic Ears: external ears normal General nose exam: Normal external nose present Face and sinus: Yes normal facial exam Mouth: Normal oral and palatal mucosa present Throat: Yes posterior oropharynx normal Eyes: General: appearance normal, both eyes and all related structures Pupils: Equal, round and reactive pupils present Neck: Neck: Yes normal visual inspection, Yes no lymphadenopathy, Yes trachea midline and Yes supple Chest: Chest palpation & inspection: normal inspection of the chest and tenderness (Left costochondral joints) Resp: Effort & Inspection: normal respiratory effort and able to speak in complete sentences Auscultation: clear to auscultation bilaterally Cardio: Rate: regular rate Rhythm: regular rhythm Heart sounds: S1 normal heart sound present, S2 normal heart sound present and no murmurs GI: Inspection: Yes normal to inspection Palpation (GI): Soft to palpation, nontender and no guarding Auscultation: normal bowel sounds : General: Yes no CVA tenderness Back/Spine/Pelvis: Back: no CVA tenderness Skin: General skin exam: no rashes or lesions noted Neuro: General: oriented to person and oriented to place Cranial nerves: Yes CN's II-XII intact bilaterally and Yes Equal, round and reactive pupils present Cognition (Neuro): normal cognition Motor exam (neuro): 5/5 motor strength present throughout Extrem: General: Yes normal to inspection Psych: Appearance: grossly normal Speech and movement: Normal speech and movement present Affect: normal affect Attitude: cooperative Thought process: Normal thought process present Thought content: Normal thought content present Course Course Course Narrative: 45-year-old female who presents emergency department for evaluation of 2 days of constant left-sided chest tightness with intermittent sharp pain. The patient had associated shortness of breath and dyspnea on exertion. The patient also is complaining of anxiety. She does have a history of intranasal cocaine use but has not used in 2 weeks. Vital signs revealed an elevated blood pressure of 149/82 and tachycardia with a heart rate of 110. Her exam did reveal left-sided chest wall tenderness otherwise was unremarkable. Laboratory evaluation revealed a low potassium of 2.9. She had an elevated glucose of 121. Patient's 1st high sensitivity troponin done at 1:40 a.m. was elevated at 54. Patient's 12 EKG revealed inverted T-waves in 1 and aVL and V5 V6 otherwise was unremarkable. I ordered a D-dimer on the patient and a repeat troponin at 4:40 a.m.. Patient was given Ativan 2 mg orally for her anxiety and potassium 40 mEq orally for her hypokalemia. 0724: The patient's repeat 3 hour high sensitive troponin was 45, this did not meet the delta of 50% increase, suggesting that she has not had a myocardial injury is the cause for chest pain. I did discuss this with her. The patient is feeling better after receiving oral Ativan. The patient's pain is most likely secondary to musculoskeletal pain and exacerbated by anxiety. Patient was discharged home. The patient was given verbal and printed instructions prior to discharge. The patient was advised to follow-up with her PCP in 2 days and to return to the emergency department if her symptoms get worse or if she develops any new symptoms that are concerning to her. Medical Decision Making Lab Data Result diagrams: 07/27/21 01:40 07/27/21 01:40 Labs: Lab Results 07/27/21 07/27/21 07/27/21 Range/Units 01:40 01:40 01:40 WBC 6.4 (4.8-10.8) X10*3/uL RBC 4.17 L (4.20-5.50) X10*6/uL Hgb 12.5 (12.0-16.0) g/dl Hct 37.1 (37-47) % MCV 89.0 (80-98) fL MCH 30.0 (27.0-33.0) pg MCHC 33.7 (31.0-35.0) g/dl RDW 14.0 (11.0-16.0) % Plt Count 248 (160-400) X10*3/uL MPV 10.7 (9.4-12.3) fL Immature Gran % (Auto) 0.2 (0.0-0.4) % Neut % (Auto) 56.1 (45-73) % Lymph % (Auto) 31.8 (20-40) % [place] % (Auto) 8.6 (2-11) % Eos % (Auto) 2.5 (0-4) % Baso % (Auto) 0.8 (0-2) % Lymph # (Auto) 2.0 (1.2-4.9) X10*3/uL [place] # (Auto) 0.6 (0.1-1.2) X10*3/uL Eos # (Auto) 0.2 (0.0-0.4) X10*3/uL Baso # (Auto) 0.1 (0.0-0.2) X10*3/uL Abs Immat Gran (auto) 0.01 (0.00-0.03) X10*3/uL Absolute Neuts (auto) 3.6 (2.0-8.3) X10*3/uL Absolute Nucleated RBC 0.000 (0.0-0.012) X10*3/uL Nucleated RBC % (auto) 0.0 (0.0-0.2) /100WBC D-Dimer NG/ML Sodium 140 (135-145) mmol/L Potassium 2.9 L (3.3-5.1) mmol/L Chloride 102 (96-108) mmol/L Carbon Dioxide 23 (22-29) mmol/L Anion Gap 18 (12-20) BUN 16 (9-16) mg/dL Creatinine 1.00 (0.5-1.4) mg/dL Estim Creat Clear Calc 79.9 Estimated GFR 59 Random Glucose 121 H (60-115) mg/dL Calcium 9.3 D (8.4-10.2) mg/dL Total Bilirubin 0.8 (0.0-1.0) mg/dL AST 31 D (5-31) U/L ALT 35 H (0-31) U/L Alkaline Phosphatase 102 (39-117) U/L Troponin I High Sens 53.9 H* (<3.5-17.0) ng/L Total Protein 6.8 (6.5-8.0) g/dL Albumin 4.0 (3.5-5.0) g/dL COVID-19 ([facility]) (Negative) COVID-19 Clin Com 07/27/21 07/27/21 07/27/21 Range/Units 01:40 04:07 04:07 WBC (4.8-10.8) X10*3/uL RBC (4.20-5.50) X10*6/uL Hgb (12.0-16.0) g/dl Hct (37-47) % MCV (80-98) fL MCH (27.0-33.0) pg MCHC (31.0-35.0) g/dl RDW (11.0-16.0) % Plt Count (160-400) X10*3/uL MPV (9.4-12.3) fL Immature Gran % (Auto) (0.0-0.4) % Neut % (Auto) (45-73) % Lymph % (Auto) (20-40) % [place] % (Auto) (2-11) % Eos % (Auto) (0-4) % Baso % (Auto) (0-2) % Lymph # (Auto) (1.2-4.9) X10*3/uL [place] # (Auto) (0.1-1.2) X10*3/uL Eos # (Auto) (0.0-0.4) X10*3/uL Baso # (Auto) (0.0-0.2) X10*3/uL Abs Immat Gran (auto) (0.00-0.03) X10*3/uL Absolute Neuts (auto) (2.0-8.3) X10*3/uL Absolute Nucleated RBC (0.0-0.012) X10*3/uL Nucleated RBC % (auto) (0.0-0.2) /100WBC D-Dimer < 200 NG/ML Sodium (135-145) mmol/L Potassium (3.3-5.1) mmol/L Chloride (96-108) mmol/L Carbon Dioxide (22-29) mmol/L Anion Gap (12-20) BUN (9-16) mg/dL Creatinine (0.5-1.4) mg/dL Estim Creat Clear Calc Estimated GFR Random Glucose (60-115) mg/dL Calcium (8.4-10.2) mg/dL Total Bilirubin (0.0-1.0) mg/dL AST (5-31) U/L ALT (0-31) U/L Alkaline Phosphatase (39-117) U/L Troponin I High Sens 45.8 H* (<3.5-17.0) ng/L Total Protein (6.5-8.0) g/dL Albumin (3.5-5.0) g/dL COVID-19 ([facility]) Negative (Negative) COVID-19 Clin Com See Note ECG Data Attestation: I personally reviewed and interpreted this ECG as follows: Interpretation: 2333: Sinus tachycardia with a rate of 107, normal VT interval, QRS duration. Prolonged QTC of 480 milliseconds. Inverted T-wave in lead 1 and aVL. Inverted T-wave in V5 and V6. No ST segment elevation, no ST segment depression. No PACs, no PVCs. Discharge Plan Discharge Clinical Impression: Acute costochondritis, Anxiety, Acute hypokalemia Patient Disposition: Home, Self-Care Instructions: Potassium Content of Foods List (ED), Costochondritis (ED) Additional Instructions: Your laboratory evaluation did reveal low potassium of 2.9, your given potassium here in the emergency department . You should try to increase the amount of potassium in your diet. Your COVID-19 test was negative. Your chest x-ray and EKG were unremarkable. You did have an elevated high sensitivity troponin however this was unchanged after 3 hours suggesting that you have not had a heart attack as the cause of your chest pain. Your chest pain is most likely secondary to inflammation of the joints of your chest (costochondritis). Also, I believe the chest pain cause you to get anxious. Continue taking medications as prescribed by your doctor. Follow-up with your doctor in 2 days. Please return to the emergency department if your symptoms get worse or if you develop any symptoms that are concerning to you.
[2021-07-27] MEDS: LORazepam 1 MG TABLET 2 MG PO (03:24)
[2021-07-27] MEDS: Potassium Chloride Packet 20 MEQ PACKET 40 MEQ PO (03:25)
[2021-07-27 03:27] VITALS: BP 138/91; PULSE 106; RESP 18; O2SAT 98
[2021-07-27 04:26] LABS: D Dimer < 200 NG/ML
[2021-07-27 04:37] LABS: Troponin-I High Sensitivity 45.8 ng/L (<3.5-17.0)
--- NOTE | 2021-07-27 07:37 | PC.NURSE ---
nad, skin wpd, st on monitor at 104, rr 18
== END 2021-07-27 07:37 | disposition home or self-care (01) ==
PROVIDERS: Emergency Provider Emergency Medicine Emergency Medical Services; PCP Family Medicine
DX: M94.0 Chondrocostal junction syndrome [Tietze] (principal); R07.9 Chest pain, unspecified; F41.1 Generalized anxiety disorder; F43.0 Acute stress reaction; E87.6 Hypokalemia; Z20.822 Contact with and (suspected) exposure to COVID-19; Z79.899 Other long term (current) drug therapy
CPT/HCPCS: 36415; 71046; 80053; 84484; 85025; 85379; 87635; 93005; 99283; 99284

== ENCOUNTER 2021-09-12 10:34 | Emergency (ER) | payer MEDICAID, SELFPAY ==
--- NOTE | ~2021-09-12 | XR_ITS ---
EXAMINATION: XR CHEST CLINICAL INFORMATION: Cough and fever COMPARISON: July 27, 2021 and January 08, 2020 TECHNIQUE: 2 views of the chest were obtained. FINDINGS: No significant abnormality is noted involving the heart, lungs, mediastinum, bony thorax or soft tissues. Shadow overlying the right hemithorax is related to breast implant. XR/XR chest 2V IMPRESSION: No acute parenchymal disease.
[2021-09-12 11:12] VITALS: BP 126/92; PULSE 116; RESP 18; TEMP 36.7; O2SAT 95; BMI 27.8
--- NOTE | 2021-09-12 13:56 | ED_ITS ---
HPI - General Adult General Chief complaint: General Medical Stated complaint: cough, headache, chest wall pain, anxiety Time Seen by Provider: 09/12/21 13:56 Source: patient Mode of arrival: ambulatory Limitations: no limitations History of Present Illness HPI narrative: Cough, headache, sore throat, no fever all started 3 days ago. Mother September 01, and since then she has been on a drinking binge. Patient has been drinking everyday for 4 months with a few days in between. she has chest pain when she coughs. Patient is vaccinated for COVID but not flu. Onset (ago): day(s) Severity: moderate Pain Consistency: intermittent Relieving factors: none Exacerbating factors: none Associated symptoms: chest pain, cough, fever/chills, headaches and shortness of breath Related Data Home Medications Medication Instructions Recorded Confirmed cetirizine [Zyrtec] 1 tab PO DAILY 07/26/21 08/13/21 lisinopril 30 mg tablet 30 mg PO DAILY 07/26/21 08/13/21 omeprazole 40 mg capsule,delayed 40 mg PO DAILY 07/26/21 08/13/21 release ergocalciferol (vitamin D2) 1,250 1 cap PO QAM 08/13/21 08/13/21 mcg (50,000 unit) capsule magnesium 500 mg tablet 15 mg PO DAILY 08/13/21 08/13/21 Previous Rx's Medication Instructions Recorded ACL defiance brace #1 ea 07/29/21 albuterol sulfate 90 mcg/actuation 2 puff INHALATION Q4-6H PRN #8.5 g 09/12/21 aerosol inhaler [id number] 2.5 20 ml PO Q4H PRN #118 ml 09/12/21 mg-5 mg-50 mg/5 mL oral liquid (Robitussin Cough and Cold CF) Allergies Allergy/AdvReac Type Severity Reaction Status Date / Time amoxicillin [AMOXICILLIN] Allergy Intermediate rash, Verified 09/12/21 11:11 rash/itching sulfamethoxazole Allergy Intermediate RASH Verified 09/12/21 11:11 [From BACTRIM] trimethoprim [From BACTRIM] Allergy Intermediate RASH Verified 09/12/21 11:11 hydrocodone [Hydrocodone] Allergy Mild ITCH Verified 09/12/21 11:11 ibuprofen [From Motrin] Allergy Mild UPSET Verified 09/12/21 11:11 STOMACH latex [Latex] Allergy Mild ITCH Verified 09/12/21 11:11 Sulfa (Sulfonamide Allergy Unknown rash/itchin Verified 09/12/21 11:11 Antibiotics) g amoxicillin Allergy Unknown Unknown Uncoded 08/13/21 15:24 bactrim Allergy Unknown Unknown Uncoded 08/13/21 15:24 hydrocodone Allergy Unknown Unknown Uncoded 08/13/21 15:24 Hydrocodone-Ibuprofen Allergy Unknown rash/itchin Uncoded 08/13/21 15:24 g Latex Allergy Unknown Unknown Uncoded 08/13/21 15:24 latex Allergy Unknown Unknown Uncoded 08/13/21 15:24 motrin Allergy Unknown Unknown Uncoded 08/13/21 15:24 Review of Systems Neurologic: Denies Sensory deficit (Neuro) [facility] Past Medical History Medical History (Updated 09/12/21 @ 16:31 by Raymond Aguirre MD) Anxiety H/O ETOH abuse History of low potassium Hypertension Surgical History (Updated 09/12/21 @ 11:15 by Neeru Bergman RN) H/O: hysterectomy Social History Social History (Updated 08/13/21 @ 15:24 by Darcy Diamond) Alcohol intake: current Alcohol intake frequency: 3 or more drinks per day Patient Tobacco Use Status: Current everyday Tobacco user Tobacco use type: Cigarette Advance Directives: No Advance Directives Information Provided: No Advance Directives Date on File: 01/11/20 Patient : No Physical Exam Vital Signs: Vital Signs: Last Vital Signs Temp 98.1 F 09/12/21 14:50 Pulse 84 09/12/21 15:10 Resp 16 09/12/21 14:50 BP 140/92 H 09/12/21 14:50 Pulse Ox 97 09/12/21 14:50 Body Mass Index 27.8 Const: Other: coughing contnuously Nutritional Appearance: average body habitus Orientation/consciousness: oriented to person and patient oriented x3 Limitations: no limitations HENMT: Other: Red pharynx, rhinorrhea, TMS normal Head: Yes normal to inspection Ears: external ears normal General nose exam: Normal external nose present Throat: Yes posterior oropharynx normal Eyes: General: appearance normal, both eyes and all related structures Neck: Other: supple Neck: Yes normal visual inspection Chest: Chest palpation & inspection: normal inspection of the chest Resp: Other: bilateral wheezing Cardio: Jugular venous distension: no JVD Rate: regular rate Rhythm: regular rhythm Heart sounds: S1 normal heart sound present and S2 normal heart sound present GI: Inspection: Yes normal to inspection Palpation (GI): Soft to palpation, nontender and No hepatosplenomegaly present Auscultation: normal bowel sounds : General: Yes no CVA tenderness Back/Spine/Pelvis: Back: no CVA tenderness Skin: General skin exam: no rashes or lesions noted Neuro: General: oriented to person and patient oriented x3 Cranial nerves: Yes CN's II-XII intact bilaterally Motor exam (neuro): 5/5 motor strength present throughout Sensory Exam: No Sensory deficit (Neuro) Extrem: General: Yes normal to inspection Psych: Appearance: grossly normal Course Reevaluation(s) Reevaluation #1: Patient without evidence of withdrawal, liver inflammation most likely secondary to alcohol, will treat for viral infection with cough meds and albuterol Time: 16:32 Medical Decision Making Lab Data Result diagrams: 09/12/21 14:34 09/12/21 14:34 Labs: Lab Results 09/12/21 09/12/21 09/12/21 Range/Units 14:34 14:34 14:34 WBC 5.1 (4.8-10.8) X10*3/uL RBC 4.71 (4.20-5.50) X10*6/uL Hgb 14.2 (12.0-16.0) g/dl Hct 42.8 (37.0-47.0) % MCV 90.9 (80.0-98.0) fL MCH 30.1 (27.0-33.0) pg MCHC 33.2 (31.0-35.0) g/dl RDW 14.8 (11.0-16.0) % Plt Count 188 (160-400) X10*3/uL MPV 10.3 (9.4-12.3) fL Immature Gran % (Auto) 0.2 (0.0-0.4) % Neut % (Auto) 55.5 (45-73) % Lymph % (Auto) 31.8 (20-40) % [place] % (Auto) 7.2 (2-11) % Eos % (Auto) 4.5 H (0-4) % Baso % (Auto) 0.8 (0-2) % Lymph # (Auto) 1.6 (1.2-4.9) X10*3/uL [place] # (Auto) 0.4 (0.1-1.2) X10*3/uL Eos # (Auto) 0.2 (0.0-0.4) X10*3/uL Baso # (Auto) 0.0 (0.0-0.2) X10*3/uL Abs Immat Gran (auto) 0.01 (0.00-0.03) X10*3/uL Absolute Neuts (auto) 2.8 (2.0-8.3) x10*3/uL Absolute Nucleated RBC 0.000 (0.0-0.012) X10*3/uL Nucleated RBC % (auto) 0.0 (0.0-0.2) /100WBC Sodium 140 (135-145) mmol/L Potassium 3.4 (3.3-5.1) mmol/L Chloride 102 (96-108) mmol/L Carbon Dioxide 23 (22-29) mmol/L Anion Gap 18 (12-20) BUN 11 (9-16) mg/dL Creatinine 1.05 (0.5-1.4) mg/dL Estim Creat Clear Calc 72.3 Estimated GFR 56 Random Glucose 144 H (60-115) mg/dL Calcium 9.1 (8.4-10.2) mg/dL Total Bilirubin 0.6 (0.0-1.0) mg/dL AST 65 H (5-31) U/L ALT 50 H (0-31) U/L Alkaline Phosphatase 124 H D (39-117) U/L Total Protein 7.7 (6.5-8.0) g/dL Albumin 4.3 (3.5-5.0) g/dL Urine Opiates Screen (Not Detect) Urine Fentanyl Screen (Not Detect) Ur Barbiturates Screen (Not Detect) Ur Phencyclidine Scrn (Not Detect) Ur Amphetamines Screen (Not Detect) U Benzodiazepines Scrn (Not Detect) Urine Cocaine Screen (Not Detect) U Marijuana (THC) Screen (Not Detect) Ethyl Alcohol 73 mg/dL 09/12/21 Range/Units 14:35 WBC (4.8-10.8) X10*3/uL RBC (4.20-5.50) X10*6/uL Hgb (12.0-16.0) g/dl Hct (37.0-47.0) % MCV (80.0-98.0) fL MCH (27.0-33.0) pg MCHC (31.0-35.0) g/dl RDW (11.0-16.0) % Plt Count (160-400) X10*3/uL MPV (9.4-12.3) fL Immature Gran % (Auto) (0.0-0.4) % Neut % (Auto) (45-73) % Lymph % (Auto) (20-40) % [place] % (Auto) (2-11) % Eos % (Auto) (0-4) % Baso % (Auto) (0-2) % Lymph # (Auto) (1.2-4.9) X10*3/uL [place] # (Auto) (0.1-1.2) X10*3/uL Eos # (Auto) (0.0-0.4) X10*3/uL Baso # (Auto) (0.0-0.2) X10*3/uL Abs Immat Gran (auto) (0.00-0.03) X10*3/uL Absolute Neuts (auto) (2.0-8.3) x10*3/uL Absolute Nucleated RBC (0.0-0.012) X10*3/uL Nucleated RBC % (auto) (0.0-0.2) /100WBC Sodium (135-145) mmol/L Potassium (3.3-5.1) mmol/L Chloride (96-108) mmol/L Carbon Dioxide (22-29) mmol/L Anion Gap (12-20) BUN (9-16) mg/dL Creatinine (0.5-1.4) mg/dL Estim Creat Clear Calc Estimated GFR Random Glucose (60-115) mg/dL Calcium (8.4-10.2) mg/dL Total Bilirubin (0.0-1.0) mg/dL AST (5-31) U/L ALT (0-31) U/L Alkaline Phosphatase (39-117) U/L Total Protein (6.5-8.0) g/dL Albumin (3.5-5.0) g/dL Urine Opiates Screen Not Detected (Not Detect) Urine Fentanyl Screen POSITIVE H (Not Detect) Ur Barbiturates Screen Not Detected (Not Detect) Ur Phencyclidine Scrn Not Detected (Not Detect) Ur Amphetamines Screen Not Detected (Not Detect) U Benzodiazepines Scrn Not Detected (Not Detect) Urine Cocaine Screen Not Detected (Not Detect) U Marijuana (THC) Screen Not Detected (Not Detect) Ethyl Alcohol mg/dL Imaging Data Chest x-ray: Radiologist's impression: no infiltrate Discharge Plan Discharge Clinical Impression: Upper respiratory infection, Mild reactive airways disease Patient Disposition: Home, Self-Care Instructions: Viral Syndrome (ED), Wheezing (ED) Prescriptions: New Robitussin Cough and Cold CF 2.5-5-50 mg/5 mL liquid 20 ml PO Q4H PRN (Reason: cough) Qty: 118 RF: 0 albuterol sulfate 90 mcg/actuation HFA aerosol inhaler 2 puff inhalation Q4-6H PRN (Reason: shortness of breath or wheezing) Qty: 8.5 RF: 0 No Action (DME) ACL defiance brace See Rx Instructions .ROUTE .MEDSUPPLY Qty: 1 RF: 0 magnesium 500 mg Tablet 15 mg PO DAILY RF: 0 ergocalciferol (vitamin D2) 1,250 mcg (50,000 unit) capsule 1 cap PO QAM RF: 0 Referrals: Shereen Latham MD [Primary Care Provider] - 1 week
[2021-09-12] MEDS: guaiFENesin 200 MG/10 ML 10 ML LIQUID PO (14:41)
[2021-09-12 14:44] LABS: MANUAL DIFF FLAG NO
[2021-09-12 14:49] LABS: Basophils Percent Auto 0.8 % (0-2); Eosinophils Absolute Auto 0.2 X10*3/uL (0.0-0.4); Eosinophils Percent Auto 4.5 % (0-4); Hematocrit 42.8 % (37.0-47.0); Hemoglobin 14.2 g/dl (12.0-16.0); Imm Gran Abs Auto 0.01 X10*3/uL (0.00-0.03); Imm Gran Pct Auto 0.2 % (0.0-0.4); Lymphocytes Absolute Auto 1.6 X10*3/uL (1.2-4.9); Lymphocytes Percent Auto 31.8 % (20-40); Mean Corpuscular HGB Conc 33.2 g/dl (31.0-35.0); Mean Corpuscular Hemoglobin 30.1 pg (27.0-33.0); Mean Corpuscular Volume 90.9 fL (80.0-98.0); Mean Platelet Volume 10.3 fL (9.4-12.3); Monocytes Absolute Auto 0.4 X10*3/uL (0.1-1.2); Monocytes Percent Auto 7.2 % (2-11); Neutrophils Absolute Auto 2.8 x10*3/uL (2.0-8.3); Neutrophils Percent Auto 55.5 % (45-73); Platelet Count 188 X10*3/uL (160-400); Red Blood Count 4.71 X10*6/uL (4.20-5.50); Red Cell Distribution Width 14.8 % (11.0-16.0); White Blood Count 5.1 X10*3/uL (4.8-10.8)
[2021-09-12 14:50] VITALS: BP 140/92; PULSE 114; RESP 16; TEMP 36.7; O2SAT 97
[2021-09-12 14:58] LABS: Ethanol 73 mg/dL
[2021-09-12 15:01] LABS: Amphetamine Screen Urine Not Detected (Not Detect); Barbiturates, Urine Not Detected (Not Detect); Benzodiazepines Screen Urine Not Detected (Not Detect); Cannabinoid Screen Urine Not Detected (Not Detect); Cocaine Screen Urine Not Detected (Not Detect); Fentanyl, urine POSITIVE (Not Detect); Opiate Screen Urine Not Detected (Not Detect); Phencyclidine Screen Urine Not Detected (Not Detect)
[2021-09-12 15:07] LABS: Alanine Aminotransferase 50 U/L (0-31); Albumin Level 4.3 g/dL (3.5-5.0); Alkaline Phosphatase 124 U/L (39-117); Anion Gap 18 (12-20); Aspartate Amino Transferase 65 U/L (5-31); Bilirubin Total 0.6 mg/dL (0.0-1.0); Blood Urea Nitrogen 11 mg/dL (9-16); Calcium 9.1 mg/dL (8.4-10.2); Carbon Dioxide 23 mmol/L (22-29); Chloride 102 mmol/L (96-108); Creatinine Clr Calc Pharmacy 72.3; Estimated Glomerular Filt Rate 56; Glucose Random 144 mg/dL (60-115); Potassium 3.4 mmol/L (3.3-5.1); Sodium 140 mmol/L (135-145); Total Protein 7.7 g/dL (6.5-8.0)
[2021-09-12 15:10] VITALS: PULSE 84; O2SAT 95
[2021-09-12] MEDS: Albuterol Sulfate 90 MCG 8 GM INHALER 4 PUFF INHALE (15:10)
[2021-09-12 15:30] LABS: Influenza A PCR NEGATIVE (Negative); Influenza B PCR NEGATIVE (Negative); Resp Syncy Virus RNA Qual PCR NEGATIVE (Negative); SARS COV2 PCR INHOUSE NEGATIVE (Negative)
== END 2021-09-12 16:40 | disposition home or self-care (01) ==
PROVIDERS: Emergency Provider Emergency Medicine; PCP Family Medicine
DX: J06.9 Acute upper respiratory infection, unspecified (principal); J45.909 Unspecified asthma, uncomplicated; I10 Essential (primary) hypertension; Z20.822 Contact with and (suspected) exposure to COVID-19
CPT/HCPCS: 0241U; 36415; 71046; 80053; 80307; 82077; 85025; 94640; 99284

== ENCOUNTER 2021-09-28 23:51 | Emergency (ER) | payer MEDICAID, SELFPAY ==
--- NOTE | 2021-09-28 | ECG_ITS ---
Test Reason : CHEST PAIN Blood Pressure : / mmHG Vent. Rate : 107 BPM Atrial Rate : 107 BPM P-R Int : 178 ms QRS Dur : 090 ms QT Int : 364 ms P-R-T Axes : 064 016 108 degrees QTc Int : 485 ms Sinus tachycardia Minimal voltage criteria for LVH, may be normal variant ( [place] product ) T wave abnormality, consider lateral ischemia Abnormal ECG When compared with ECG of 26-JUL-2021 23:33, No significant change was found Referred By: Generic ED Physician Electronically Signed By:ANGELIQUE CONTEH MD
[2021-09-29 00:34] VITALS: BP 132/96; PULSE 114; RESP 18; TEMP 36.7; O2SAT 97; BMI 27.0
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
[2021-09-29 00:47] VITALS: BP 148/97; PULSE 110; RESP 18; TEMP 36.7; O2SAT 97
[2021-09-29 01:07] LABS: MANUAL DIFF FLAG NO
[2021-09-29 01:08] LABS: Basophils Absolute Auto 0.1 X10*3/uL (0.0-0.2); Basophils Percent Auto 1.2 % (0-2); Eosinophils Absolute Auto 0.1 X10*3/uL (0.0-0.4); Eosinophils Percent Auto 1.6 % (0-4); Hematocrit 39.7 % (37.0-47.0); Hemoglobin 13.4 g/dl (12.0-16.0); Imm Gran Abs Auto 0.02 X10*3/uL (0.00-0.03); Imm Gran Pct Auto 0.3 % (0.0-0.4); Lymphocytes Absolute Auto 3.4 X10*3/uL (1.2-4.9); Lymphocytes Percent Auto 46.2 % (20-40); Mean Corpuscular HGB Conc 33.8 g/dl (31.0-35.0); Mean Corpuscular Hemoglobin 31.2 pg (27.0-33.0); Mean Corpuscular Volume 92.5 fL (80.0-98.0); Mean Platelet Volume 10.1 fL (9.4-12.3); Monocytes Absolute Auto 0.5 X10*3/uL (0.1-1.2); Monocytes Percent Auto 6.4 % (2-11); Neutrophils Absolute Auto 3.2 x10*3/uL (2.0-8.3); Neutrophils Percent Auto 44.3 % (45-73); Platelet Count 302 X10*3/uL (160-400); Red Blood Count 4.29 X10*6/uL (4.20-5.50); Red Cell Distribution Width 14.3 % (11.0-16.0); White Blood Count 7.3 X10*3/uL (4.8-10.8)
[2021-09-29] MEDS: ondansetron HCL 4 MG/2 ML VIAL IVPUSH (01:13)
[2021-09-29] MEDS: 0.9 % Sodium Chloride 1,000 ML 999 ML IVCONT (01:13)
[2021-09-29] MEDS: Famotidine/PF 20 MG/2 ML VIAL IVPUSH (01:14)
[2021-09-29] MEDS: LORazepam 2 MG/ML VIAL IVPUSH (01:14)
[2021-09-29] MEDS: Folic Acid 1 MG TABLET PO (01:14)
[2021-09-29 01:16] LABS: Prothrombin Time 11.3 SEC (9.9-13.0)
[2021-09-29 01:25] LABS: COVID-19 Test Negative (Negative); IDNOW Serial# 9DD0AD1C
[2021-09-29 01:26] LABS: Ethanol 337 mg/dL
[2021-09-29 01:31] LABS: Alanine Aminotransferase 46 U/L (0-31); Albumin Level 4.1 g/dL (3.5-5.0); Alkaline Phosphatase 117 U/L (39-117); Anion Gap 22 (12-20); Aspartate Amino Transferase 63 U/L (5-31); Bilirubin Total 0.4 mg/dL (0.0-1.0); Blood Urea Nitrogen 12 mg/dL (9-16); Calcium 9.3 mg/dL (8.4-10.2); Carbon Dioxide 22 mmol/L (22-29); Chloride 104 mmol/L (96-108); Creatinine Clr Calc Pharmacy 68.1; Estimated Glomerular Filt Rate 53; Glucose Random 162 mg/dL (60-115); Lipase 72 U/L (8-78); Magnesium 1.5 mg/dL (1.6-2.6); Sodium 145 mmol/L (135-145); Total Protein 7.1 g/dL (6.5-8.0)
[2021-09-29] MEDS: Thiamine HCL 100 MG TABLET PO (01:37)
[2021-09-29] MEDS: Potassium Chloride ER 20 MEQ TAB.ER.PRT 60 MEQ PO (01:53)
[2021-09-29] MEDS: Magnesium Sulfate/D5W 1 GM/100 ML PIGGYBACK IV (01:55)
--- NOTE | 2021-09-29 02:01 | PC.NURSE ---
pt a&o, no sob or chest pain. Has been drinking for 9 days straights. pt change into hospital attire, placed on monitor, labs drawn, Iv placed. medicated per dec. will continue to monitor.
[2021-09-29 02:04] VITALS: BP 102/60; PULSE 108; RESP 14; O2SAT 97
[2021-09-29 04:31] VITALS: BP 107/60; PULSE 105; RESP 15; O2SAT 98
--- NOTE | 2021-09-29 06:44 | PC.NURSE ---
PT A&O, PROVIDER IN TO DISCUSS DETOX PT REFUSING BUT WANT INFORMATION FOR OUT PATIENT. PT TOLERATED PO CHALLENGE WELL . PT HAS A STEADY GAIT. PLAN IS TO DISCHARGE HOME.
[2021-09-29 06:45] VITALS: RESP 20
== END 2021-09-29 06:51 | disposition home or self-care (01) ==
PROVIDERS: Emergency Provider Internal Medicine; PCP Family Medicine
DX: F10.220 Alcohol dependence with intoxication, uncomplicated (principal); Y90.8 Blood alcohol level of 240 mg/100 ml or more; F32.A Depression, unspecified; I10 Essential (primary) hypertension; F17.200 Nicotine dependence, unspecified, uncomplicated; Z20.822 Contact with and (suspected) exposure to COVID-19; Z72.89 Other problems related to lifestyle; Z63.4 Disappearance and death of family member; Z79.899 Other long term (current) drug therapy
CPT/HCPCS: 36415; 80053; 82077; 83690; 83735; 85025; 85610; 87635; 93005; 96361; 96365; 96375; 99284; 99285; J2060; J2405; J3475

== ENCOUNTER 2021-09-30 14:36 | Inpatient (IN) | payer MEDICAID, SELFPAY ==
--- NOTE | ~2021-09-30 | CT_ITS ---
EXAMINATION: CT ANGIOGRAM OF THE CHEST WITH AND WITHOUT CONTRAST (CT PULMONARY ANGIOGRAM FOR PE) CLINICAL INFORMATION: Reason for Exam chest pain, SOB, passed out, r/o PE COMPARISON: Chest x-ray 09/12/2021 TECHNIQUE: Prior to contrast administration, noncontrast localization images were obtained. Subsequently, multidetector volumetric imaging was performed from the thoracic inlet to below the diaphragms following the administration of 80 mL Omnipaque 350 intravenous contrast. No contrast reaction reported Sagittal, coronal, and MIP oblique sagittal reformatted images were obtained on the CT workstation, uploaded to PACS, and reviewed. This CT examination was performed using dose optimization techniques as appropriate, variously including the following: *Automated exposure control *Adjustment of mA and/or kV according to patient size (this includes techniques or standardized protocols for targeted exams where dose is matched to indication/reason for exam; i.e. extremities or head) *Use of iterative reconstruction technique FINDINGS: QUALITY OF STUDY/CONTRAST BOLUS: Satisfactory. PULMONARY ARTERIES: No central or segmental pulmonary emboli. THORACIC AORTA: No aneurysm or dissection. LUNG: Chronic bronchial wall thickening and airspace opacity in the right middle lobe with associated volume loss, similar to prior study. No new focal consolidation or mass. PLEURA: No pleural effusion or pneumothorax. MEDIASTINUM: Normal heart size. No pericardial effusion. No hilar or mediastinal lymphadenopathy. No evidence of septal bowing or right heart strain. CHEST WALL/AXILLA: Status post right mastectomy with right breast implant in place. No axillary or internal mammary lymphadenopathy. OSSEOUS STRUCTURES: No acute or suspicious osseous abnormality. UPPER ABDOMEN: Diffuse hepatic steatosis. No reflux of contrast into the hepatic veins to suggest elevated right heart pressures. CT/CT angio chest PE protocol IMPRESSION: No pulmonary embolus seen. No acute pulmonary disease. VTE: negative
[2021-09-30 15:04] VITALS: BP 123/74; PULSE 86; O2SAT 100
[2021-09-30 15:13] VITALS: BP 100/65; PULSE 112; RESP 20; TEMP 36.8; O2SAT 100; BMI 29.0
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
--- NOTE | 2021-09-30 16:09 | ECG_ITS ---
Test Reason : cp Blood Pressure : / mmHG Vent. Rate : 111 BPM Atrial Rate : 111 BPM P-R Int : 144 ms QRS Dur : 084 ms QT Int : 372 ms P-R-T Axes : 058 007 117 degrees QTc Int : 505 ms Sinus tachycardia Moderate voltage criteria for LVH, may be normal variant ( R in aVL , Triplett product ) T wave abnormality, consider lateral ischemia Abnormal ECG When compared with ECG of 28-SEP-2021 23:58, T wave inversion more evident in Lateral leads Referred By: Concetta Whalen Electronically Signed By:ANGELIQUE CONTEH MD
[2021-09-30 16:51] LABS: MANUAL DIFF FLAG NO
[2021-09-30 16:53] LABS: Basophils Absolute Auto 0.1 X10*3/uL (0.0-0.2); Basophils Percent Auto 0.5 % (0-2); Eosinophils Percent Auto 0.3 % (0-4); Hematocrit 43.6 % (37.0-47.0); Hemoglobin 14.8 g/dl (12.0-16.0); Imm Gran Abs Auto 0.04 X10*3/uL (0.00-0.03); Imm Gran Pct Auto 0.4 % (0.0-0.4); Lymphocytes Percent Auto 9.2 % (20-40); Mean Corpuscular HGB Conc 33.9 g/dl (31.0-35.0); Mean Corpuscular Hemoglobin 30.8 pg (27.0-33.0); Mean Corpuscular Volume 90.8 fL (80.0-98.0); Mean Platelet Volume 10.8 fL (9.4-12.3); Monocytes Absolute Auto 0.4 X10*3/uL (0.1-1.2); Monocytes Percent Auto 3.4 % (2-11); Neutrophils Absolute Auto 9.7 x10*3/uL (2.0-8.3); Neutrophils Percent Auto 86.2 % (45-73); Platelet Count 261 X10*3/uL (160-400); Red Cell Distribution Width 13.7 % (11.0-16.0); White Blood Count 11.3 X10*3/uL (4.8-10.8)
[2021-09-30] MEDS: LORazepam 1 MG TABLET PO (16:57)
[2021-09-30 17:00] LABS: D Dimer High Sensitivity 209 NG/ML
[2021-09-30 17:06] LABS: Ethanol < 10 mg/dL
[2021-09-30 17:12] LABS: Alanine Aminotransferase 42 U/L (0-31); Albumin Level 4.2 g/dL (3.5-5.0); Alkaline Phosphatase 113 U/L (39-117); Anion Gap 16 (12-20); Aspartate Amino Transferase 44 U/L (5-31); Bilirubin Direct 0.5 mg/dL (0.0-0.5); Bilirubin Total 1.3 mg/dL (0.0-1.0); Blood Urea Nitrogen 14 mg/dL (9-16); Calcium 9.5 mg/dL (8.4-10.2); Carbon Dioxide 26 mmol/L (22-29); Chloride 101 mmol/L (96-108); Creatinine Clr Calc Pharmacy 46.3; Estimated Glomerular Filt Rate 33; Glucose Random 121 mg/dL (60-115); Magnesium 1.3 mg/dL (1.6-2.6); Potassium 3.8 mmol/L (3.3-5.1); Sodium 139 mmol/L (135-145); Total Protein 7.6 g/dL (6.5-8.0)
[2021-09-30 17:17] LABS: Troponin-I High Sensitivity 55.6 ng/L (<3.5-17.0)
[2021-09-30 17:37] LABS: Appearance Urine HAZY; Color Urine DK YELLOW; Glucose Urine UA NEG (NEG); Leukocyte Esterase Urine NEG (NEG); Nitrite Urine NEG (NEG); Specific Gravity - Urine >= 1.030 (1.005-1.025); UACC Culture Trigger NO; Urine Blood NEG (NEG); Urine Ketones 5 MG/DL (NEG); Urine Protein 2+ MG/DL (NEG-TRACE)
[2021-09-30] MEDS: 0.9 % Sodium Chloride 1,000 ML 999 ML IVCONT (17:40)
[2021-09-30 17:51] LABS: Bacteria Urine TRACE /LPF; Granular Casts Urine 0-2 /LPF; Hyaline Casts Urine 0-2 /LPF; Mucus Urine 3+ /LPF; RBC Urine 0-2 /HPF (0); Squamous Epithelial Cell Urine 1+ /LPF
[2021-09-30 17:53] LABS: Urine Talc Crystals TRACE /LPF
[2021-09-30 17:56] LABS: Amphetamine Screen Urine Not Detected (Not Detect); Barbiturates, Urine Not Detected (Not Detect); Benzodiazepines Screen Urine Not Detected (Not Detect); Cannabinoid Screen Urine Not Detected (Not Detect); Cocaine Screen Urine Not Detected (Not Detect); Fentanyl, urine Not Detected (Not Detect); Opiate Screen Urine Not Detected (Not Detect); Phencyclidine Screen Urine Not Detected (Not Detect)
[2021-09-30] MEDS: Magnesium Sulfate/H2O 2 GM/50 ML PIGGYBACK IV (18:13)
[2021-09-30] MEDS: iohexoL 350 MG/ML 100 ML INFUS..BTL IV (18:29)
[2021-09-30] MEDS: PHENobarbitaL sodium 130 MG/ML VIAL 246 MG IM (19:00)
[2021-09-30 19:03] VITALS: BP 136/95; PULSE 98; RESP 16; TEMP 36.9; O2SAT 100
--- NOTE | 2021-09-30 19:26 | PHA.MEDREC ---
Pharmacy Consult ? Medication Reconciliation Pharmacy has completed the medication reconciliation. Spoke with patient in [facility]. Patient reports taking Clonidine PRN even though supposed to scheduled and also stopped her amlodipine due to side effects ( her PCP is aware).
--- NOTE | 2021-09-30 20:31 | PM.IMHP ---
History of Present Illness Date of Service: 09/30/21 Chief Complaint: anxiety, panic attack 45-year-old female with past medical history of alcohol abuse, severe anxiety, panic attacks, hypertension, GERD, history of breast cancer status post right mastectomy, presents to the hospital with complaints of severe anxiety, feeling overwhelmed, having a syncopal episode at home. 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 She pulled herself to the bathroom and called EMS. She denies having any chest pain, no shortness of breath although she felt like she was having a panic attack, denies having any abdominal pain nausea or vomiting, no diarrhea constipation although had loss of bowel control during the syncopal episode. Denies any jerking movement, no urinary symptoms and no lower extremity edema. Patient reports that she has been not eating or drinking well for the past few days. Or other residents any fever or chills. On arrival to the ED patient hemodynamically stable with no significant abnormal vitals Labs are significant for WBC count of 11.3, creatinine of 1.67 with a baseline of 1.10 on 21/06, Mag of 1.3, AST of 44, ALT of 42, high sensitivity troponin of 54.6, 51.1 on repeat, UA negative, UDS negative, alcohol was positive on the 29 of September, negative today. Patient started on phenobarb protocol, CT angiogram was done for syncope which was negative for VT. Review of Systems Review of Systems: Yes all other systems are reviewed and are negative [facility] Medical History Anxiety H/O ETOH abuse History of low potassium Hypertension Panic attack Family History (Updated 10/01/21 @ 05:43 by Florence Early MD) Mother Heart disease Alzheimers disease Surgical History H/O: hysterectomy Social History Alcohol intake: current Alcohol intake frequency: 3 or more drinks per day Alcohol type: hard liquor Patient Tobacco Use Status: Current everyday Tobacco user Tobacco use type: Cigarette Advance Directives: No Advance Directives Information Provided: No Advance Directives Date on File: 01/11/20 service: No Current occupational status: unemployed Meds Allergies Allergy/AdvReac Type Severity Reaction Status Date / Time amoxicillin [AMOXICILLIN] Allergy Intermediate rash, Verified 09/12/21 11:11 rash/itching sulfamethoxazole Allergy Intermediate RASH Verified 09/12/21 11:11 [From BACTRIM] trimethoprim [From BACTRIM] Allergy Intermediate RASH Verified 09/12/21 11:11 hydrocodone [Hydrocodone] Allergy Mild ITCH Verified 09/12/21 11:11 ibuprofen [From Motrin] Allergy Mild UPSET Verified 09/12/21 11:11 STOMACH latex [Latex] Allergy Mild ITCH Verified 09/12/21 11:11 Sulfa (Sulfonamide Allergy Unknown rash/itchin Verified 09/12/21 11:11 Antibiotics) g amoxicillin Allergy Unknown Unknown Uncoded 08/13/21 15:24 bactrim Allergy Unknown Unknown Uncoded 08/13/21 15:24 hydrocodone Allergy Unknown Unknown Uncoded 08/13/21 15:24 Hydrocodone-Ibuprofen Allergy Unknown rash/itchin Uncoded 08/13/21 15:24 g Latex Allergy Unknown Unknown Uncoded 08/13/21 15:24 latex Allergy Unknown Unknown Uncoded 08/13/21 15:24 motrin Allergy Unknown Unknown Uncoded 08/13/21 15:24 Active Medications: Current Medications Medication (No Benzodiazepines) 1 each MISCELLANE DAILY [facility] Pharmacy Consult (Consult Rx Perform Med Rec) 1 each MISCELLANE ONCE PRN PRN Reason: Consult order Phenobarbital (Phenobarbital 15 Mg Tablet) 45 mg PO BID [facility] Stop: 10/02/21 21:01 Phenobarbital (Phenobarbital 15 Mg Tablet) 15 mg PO BID [facility] Stop: 10/04/21 21:01 Phenobarbital (Phenobarbital 15 Mg Tablet) 15 mg PO DAILY [facility] Stop: 10/06/21 09:01 Phenobarbital Sodium (Phenobarbital Sodium 130 Mg/Ml Vial) 185 mg IM 0100,2200 [facility] Stop: 10/01/21 01:01 Home Medications Medication Instructions Recorded Confirmed Last Taken Type lisinopril 30 mg tablet 30 mg PO DAILY 07/26/21 09/30/21 09/30/21 History ergocalciferol (vitamin D2) 1,250 1 cap PO TU@0900 08/13/21 09/30/21 09/30/21 History mcg (50,000 unit) capsule acetaminophen 500 mg tablet 1 tab PO Q6H PRN 09/30/21 09/30/21 Unknown History clonidine HCl 0.1 mg tablet 1 tab PO BEDTIME PRN 09/30/21 09/30/21 Unknown History folic acid 1 mg tablet 1 tab PO DAILY 09/30/21 09/30/21 09/30/21 History lidocaine 5 % topical patch 1 patch TOPICAL DAILY PRN 09/30/21 09/30/21 Unknown History loratadine 10 mg tablet 1 tab PO DAILY 09/30/21 09/30/21 09/30/21 History magnesium oxide 500 mg tablet 1 tab PO DAILY 09/30/21 09/30/21 09/30/21 History omeprazole 20 mg capsule,delayed 1 cap PO DAILY@0630 09/30/21 09/30/21 09/30/21 History release thiamine HCl (vitamin B1) 100 mg 1 tab PO DAILY 09/30/21 09/30/21 09/30/21 History tablet Physical Exam Vital Signs and Narrative: Vital Signs: Last Vital Signs Temp 98.4 F 09/30/21 19:03 Pulse 98 09/30/21 19:03 Resp 16 09/30/21 19:03 BP 136/95 H 09/30/21 19:03 Pulse Ox 100 09/30/21 19:03 Body Mass Index 29.0 Const: Other: patient appears anxious, restless, rocking back and forth in bed General: cooperative and no acute distress Orientation/consciousness: patient oriented x3 Eyes: General: appearance normal, both eyes and all related structures Pupils: Equal, round and reactive pupils present Resp: Effort & Inspection: normal respiratory effort Auscultation: clear to auscultation bilaterally Cardio: Rate: regular rate Rhythm: regular rhythm GI: Palpation (GI): Soft to palpation Auscultation: normal bowel sounds Skin: General skin exam: no rashes or lesions noted Neuro: General: patient oriented x3 Cranial nerves: Yes Equal, round and reactive pupils present Cognition (Neuro): normal cognition Extrem: General: Yes normal to inspection and Yes no pedal edema Results Labs CBC and Chem 7: 09/30/21 16:45 09/30/21 16:44 Labs: Laboratory Results - last 24 hr 09/30/21 09/30/21 09/30/21 16:44 16:44 16:45 MCV 90.8 MCH 30.8 MCHC 33.9 RDW 13.7 Plt Count 261 MPV 10.8 Immature Gran % (Auto) 0.4 Neut % (Auto) 86.2 H Lymph % (Auto) 9.2 L [place] % (Auto) 3.4 Eos % (Auto) 0.3 Baso % (Auto) 0.5 Lymph # (Auto) 1.0 L [place] # (Auto) 0.4 Eos # (Auto) 0.0 Baso # (Auto) 0.1 Abs Immat Gran (auto) 0.04 H Absolute Neuts (auto) 9.7 H Absolute Nucleated RBC 0.000 Nucleated RBC % (auto) 0.0 D-Dimer High Sensitivty Anion Gap 16 Estim Creat Clear Calc 46.3 Estimated GFR 33 Random Glucose 121 H Calcium 9.5 Magnesium 1.3 L* Total Bilirubin 1.3 H Direct Bilirubin 0.5 AST 44 H ALT 42 H Alkaline Phosphatase 113 Troponin I High Sens 55.6 H* Total Protein 7.6 Albumin 4.2 Urine Color Urine Appearance Urine pH Ur Specific [place] Urine Protein Urine Glucose (UA) Urine Ketones Urine Blood Urine Nitrite Ur Leukocyte Esterase Urine RBC Urine WBC Ur Squamous Epith Cells Talc Crystals Urine Bacteria Hyaline Casts Granular Casts Urine Mucus Urine Opiates Screen Urine Fentanyl Screen Ur Barbiturates Screen Ur Phencyclidine Scrn Ur Amphetamines Screen U Benzodiazepines Scrn Urine Cocaine Screen U Marijuana (THC) Screen Ethyl Alcohol 09/30/21 09/30/21 09/30/21 16:45 16:45 17:24 MCV MCH MCHC RDW Plt Count MPV Immature Gran % (Auto) Neut % (Auto) Lymph % (Auto) Cascade % (Auto) Eos % (Auto) Baso % (Auto) Lymph # (Auto) [place] # (Auto) Eos # (Auto) Baso # (Auto) Abs Immat Gran (auto) Absolute Neuts (auto) Absolute Nucleated RBC Nucleated RBC % (auto) D-Dimer High Sensitivty 209 Anion Gap Estim Creat Clear Calc Estimated GFR Random Glucose Calcium Magnesium Total Bilirubin Direct Bilirubin AST ALT Alkaline Phosphatase Troponin I High Sens Total Protein Albumin Urine Color DK YELLOW Urine Appearance HAZY Urine pH 6.0 Ur Specific [place] >= 1.030 H Urine Protein 2+ H Urine Glucose (UA) NEG Urine Ketones 5 Urine Blood NEG Urine Nitrite NEG Ur Leukocyte Esterase NEG Urine RBC 0-2 Urine WBC 1-4 Ur Squamous Epith Cells 1+ Talc Crystals TRACE Urine Bacteria TRACE Hyaline Casts 0-2 Granular Casts 0-2 Urine Mucus 3+ Urine Opiates Screen Urine Fentanyl Screen Ur Barbiturates Screen Ur Phencyclidine Scrn Ur Amphetamines Screen U Benzodiazepines Scrn Urine Cocaine Screen U Marijuana (THC) Screen Ethyl Alcohol < 10 09/30/21 17:24 MCV MCH MCHC RDW Plt Count MPV Immature Gran % (Auto) Neut % (Auto) Lymph % (Auto) Cascade % (Auto) Eos % (Auto) Baso % (Auto) Lymph # (Auto) [place] # (Auto) Eos # (Auto) Baso # (Auto) Abs Immat Gran (auto) Absolute Neuts (auto) Absolute Nucleated RBC Nucleated RBC % (auto) D-Dimer High Sensitivty Anion Gap Estim Creat Clear Calc Estimated GFR Random Glucose Calcium Magnesium Total Bilirubin Direct Bilirubin AST ALT Alkaline Phosphatase Troponin I High Sens Total Protein Albumin Urine Color Urine Appearance Urine pH Ur Specific [place] Urine Protein Urine Glucose (UA) Urine Ketones Urine Blood Urine Nitrite Ur Leukocyte Esterase Urine RBC Urine WBC Ur Squamous Epith Cells Talc Crystals Urine Bacteria Hyaline Casts Granular Casts Urine Mucus Urine Opiates Screen Not Detected Urine Fentanyl Screen Not Detected Ur Barbiturates Screen Not Detected Ur Phencyclidine Scrn Not Detected Ur Amphetamines Screen Not Detected U Benzodiazepines Scrn Not Detected Urine Cocaine Screen Not Detected U Marijuana (THC) Screen Not Detected Ethyl Alcohol Imaging Radiologist's Impressions: Impressions Chest CTA 09/30/21 17:23 IMPRESSION: No pulmonary embolus seen. No acute pulmonary disease. VTE: negative Assessment and Plan (1) Acute anxiety: Status: Acute (2) Alcohol withdrawal: Qualifiers: Complication of substance-induced condition: with unspecified complication Qualified Code(s): F10.239 - Alcohol dependence with withdrawal, unspecified Status: Acute (3) Syncope: Qualifiers: Syncope type: unspecified Qualified Code(s): R55 - Syncope and collapse Status: Acute (4) Breast cancer: Status: Acute this is a 45-year-old female with past medical history of breast cancer, anxiety, hypertension, GERD who presents to the hospital with complaints of severe anxiety as well as alcohol abstinence causing alcohol withdrawals # alcohol withdrawal - last drink was 2 days ago, patient has now developed hallucinations - start on phenobarb protocol - continue thiamine and folic acid supplement # acute anxiety /panic attack - should be somewhat treated with the phenobarb above - will consult psychiatry for inpatient evaluation # syncope - most likely secondary to alcohol withdrawal as well as vasovagal as patient reports poor oral intake in the past few days. - CT angiograms negative for VTE - will admit to telemetry # History of breast cancer - patient has history of right mastectomy, reports that she is supposed to be on chemotherapy but has not been compliant and has not been compliant with mammography - emphasized the importance of follow-up and patient verbalized understanding # hypertension - continue lisinopril # GERD - continue omeprazole DVT prophylaxis, Lovenox Quality Stroke Does the patient have a stroke diagnosis?: No VTE Prior VTE?: No VTE Risk Level:: Medical - moderate - high VTE Device Contraindication: Treatment Not Indicated VTE Drug Contraindication: N/A - Med Ordered
[2021-09-30 21:06] VITALS: BP 133/98; PULSE 101; RESP 16; TEMP 36.9; O2SAT 99
[2021-09-30 21:27] LABS: COVID-19 Test Negative (Negative); IDNOW Serial# 9DD0AD1C
[2021-09-30 21:39] LABS: Troponin-I High Sensitivity 51.1 ng/L (<3.5-17.0)
[2021-09-30] MEDS: PHENobarbitaL sodium 130 MG/ML VIAL 185 MG IM (22:49)
[2021-09-30 22:53] VITALS: BP 135/95; PULSE 104; RESP 15; TEMP 36.9; O2SAT 97
--- NOTE | 2021-09-30 22:57 | MHC.CM.PN ---
CM met with admitted patient with bed assignment pending. No IMM necessary PCP is Dr. Latham at [facility]. No HCP on file. HCP reviewed, completed and signed per protocol. Copies given and uploaded into [facility] [employer] and [facility] [employer]. HCP/daughter Marck Mackey ([phone]). Pt admits to being homeless and staying with different relatives. States the address listed is her daughter's and she uses it for mail. Pt has a leg brace, which she uses for her knee. Pt has no services. Pt is fully vaccinated with [employer]. Admits to having COVID. D/C plan is home without services. Pt to arrange transportation home. CM to follow for d/c needs.
[2021-10-01] VITALS (7 sets, daily range): BP systolic 132–162; BP diastolic 89–101; PULSE 95–109; RESP 16–20; TEMP 36.1–37.1; O2SAT 97–100; BMI 29.0
[2021-10-01] MEDS: PHENobarbitaL sodium 130 MG/ML VIAL 185 MG IM (01:26)
--- NOTE | 2021-10-01 05:48 | PC.NURSE ---
This Rn took over patient's care at 0100. Patient alert and oriented X3, denies pain at this time. Patient reports slight nausea, but reports was able to eat. Patient offers no other complaints. Ambulated patient to bathroom with 1 assist.
[2021-10-01] MEDS: PHENobarbitaL 15 MG TABLET 45 MG PO ×2 (10:09→20:59)
--- NOTE | 2021-10-01 10:40 | P.PNIM_ITS ---
Subjective Subjective Date of Service: 10/01/21 Interval History: cc: syncope interval history: weak Cardiovascular Cardiovascular: Reports no additional cardiovascular complaints Gastrointestinal Gastrointestinal: Reports no additional gastrointestinal complaints Physical Exam Vital Signs: Vital Signs: Last Vital Signs Temp 98.7 F 10/01/21 09:38 Pulse 95 10/01/21 09:38 Resp 18 10/01/21 09:38 BP 143/89 H 10/01/21 09:38 Pulse Ox 98 10/01/21 09:38 Body Mass Index 29.0 General: lethargic O X 3, no acute distress Resp: CTA bilateral, no accessory muscles used CVS: S1,S2,RRR GI: soft, non tender, non distended Neuro: motor grossly intact, alert Psych: appropriate affect, appropriate insight Objective Data Active Medications Acetaminophen (Acetaminophen 325 Mg Tablet) 650 mg PO Q6H PRN PRN Reason: Pain, Mild (Pain Scale 1-3) Albuterol Sulfate (Albuterol Sulfate 90 Mcg 8 Gm Inhaler) 2 puff INHALE Q4H PRN PRN Reason: shortness of breath or wheezing Clonidine HCl (Clonidine Hcl 0.1 Mg Tablet) 0.1 mg PO BEDTIME PRN; Protocol PRN Reason: Anxiety Docusate Sodium (Docusate Sodium 100 Mg Capsule) 100 mg PO DAILY PRN PRN Reason: Constipation Enoxaparin Sodium (Enoxaparin Sodium 40 Mg/0.4 Ml Syringe) 40 mg SUBCUT Q24H [facility] Ergocalciferol (Ergocalciferol (Vitamin D2) 1,250 Mcg Capsule) 1,250 mcg PO TU@0900 [facility] Folic Acid (Folic Acid 1 Mg Tablet) 1 mg PO DAILY [facility] Lactated Ringer's (Lr) 1,000 mls @ 100 mls/hr IVCONT .Q10H [facility] Lidocaine (Lidocaine 4 % Patch Adh..Patch) 1 patch TRANSDERMA DAILY PRN PRN Reason: Pain (Scale Score 1-3) Loratadine (Loratadine 10 Mg Tablet) 10 mg PO DAILY [facility] Magnesium Oxide (Magnesium Oxide 400 Mg Tablet) 400 mg PO BIDPC [facility] Medication (No Benzodiazepines) 1 each MISCELLANE DAILY [facility] Omeprazole (Omeprazole 20 Mg Capsule.Dr) 20 mg PO DAILY@0630 [facility] Ondansetron HCl (Ondansetron Hcl 4 Mg/2 Ml Vial) 4 mg IVPUSH Q8H PRN PRN Reason: Nausea and Vomiting Pharmacy Consult (Consult Rx Perform Med Rec) 1 each MISCELLANE ONCE PRN PRN Reason: Consult order Phenobarbital (Phenobarbital 15 Mg Tablet) 45 mg PO BID [facility] Stop: 10/02/21 21:01 Last Admin: 10/01/21 10:09 Dose: 45 mg Documented by: LYNDSAY Phenobarbital (Phenobarbital 15 Mg Tablet) 15 mg PO BID [facility] Stop: 10/04/21 21:01 Phenobarbital (Phenobarbital 15 Mg Tablet) 15 mg PO DAILY [facility] Stop: 10/06/21 09:01 Thiamine HCl (Thiamine Hcl 100 Mg Tablet) 100 mg PO DAILY [facility] Labs CBC & Chem 7: 09/30/21 16:45 09/30/21 16:44 Labs: Laboratory Results - last 24 hr 09/30/21 09/30/21 09/30/21 16:44 16:44 16:45 MCV 90.8 MCH 30.8 MCHC 33.9 RDW 13.7 Plt Count 261 MPV 10.8 Immature Gran % (Auto) 0.4 Neut % (Auto) 86.2 H Lymph % (Auto) 9.2 L [place] % (Auto) 3.4 Eos % (Auto) 0.3 Baso % (Auto) 0.5 Lymph # (Auto) 1.0 L [place] # (Auto) 0.4 Eos # (Auto) 0.0 Baso # (Auto) 0.1 Abs Immat Gran (auto) 0.04 H Absolute Neuts (auto) 9.7 H Absolute Nucleated RBC 0.000 Nucleated RBC % (auto) 0.0 D-Dimer High Sensitivty Anion Gap 16 Estim Creat Clear Calc 46.3 Estimated GFR 33 Random Glucose 121 H Calcium 9.5 Magnesium 1.3 L* Total Bilirubin 1.3 H Direct Bilirubin 0.5 AST 44 H ALT 42 H Alkaline Phosphatase 113 Troponin I High Sens 55.6 H* Total Protein 7.6 Albumin 4.2 Urine Color Urine Appearance Urine pH Ur Specific [place] Urine Protein Urine Glucose (UA) Urine Ketones Urine Blood Urine Nitrite Ur Leukocyte Esterase Urine RBC Urine WBC Ur Squamous Epith Cells Talc Crystals Urine Bacteria Hyaline Casts Granular Casts Urine Mucus Urine Opiates Screen Urine Fentanyl Screen Ur Barbiturates Screen Ur Phencyclidine Scrn Ur Amphetamines Screen U Benzodiazepines Scrn Urine Cocaine Screen U Marijuana (THC) Screen Ethyl Alcohol COVID-19 ([facility]) COVID-19 Clin Com 09/30/21 09/30/21 09/30/21 16:45 16:45 17:24 MCV MCH MCHC RDW Plt Count MPV Immature Gran % (Auto) Neut % (Auto) Lymph % (Auto) Bureau % (Auto) Eos % (Auto) Baso % (Auto) Lymph # (Auto) Bureau # (Auto) Eos # (Auto) Baso # (Auto) Abs Immat Gran (auto) Absolute Neuts (auto) Absolute Nucleated RBC Nucleated RBC % (auto) D-Dimer High Sensitivty 209 Anion Gap Estim Creat Clear Calc Estimated GFR Random Glucose Calcium Magnesium Total Bilirubin Direct Bilirubin AST ALT Alkaline Phosphatase Troponin I High Sens Total Protein Albumin Urine Color DK YELLOW Urine Appearance HAZY Urine pH 6.0 Ur Specific [place] >= 1.030 H Urine Protein 2+ H Urine Glucose (UA) NEG Urine Ketones 5 Urine Blood NEG Urine Nitrite NEG Ur Leukocyte Esterase NEG Urine RBC 0-2 Urine WBC 1-4 Ur Squamous Epith Cells 1+ Talc Crystals TRACE Urine Bacteria TRACE Hyaline Casts 0-2 Granular Casts 0-2 Urine Mucus 3+ Urine Opiates Screen Urine Fentanyl Screen Ur Barbiturates Screen Ur Phencyclidine Scrn Ur Amphetamines Screen U Benzodiazepines Scrn Urine Cocaine Screen U Marijuana (THC) Screen Ethyl Alcohol < 10 COVID-19 ([facility]) COVID-19 Clin Com 09/30/21 09/30/21 09/30/21 17:24 21:05 21:05 MCV MCH MCHC RDW Plt Count MPV Immature Gran % (Auto) Neut % (Auto) Lymph % (Auto) Bureau % (Auto) Eos % (Auto) Baso % (Auto) Lymph # (Auto) Bureau # (Auto) Eos # (Auto) Baso # (Auto) Abs Immat Gran (auto) Absolute Neuts (auto) Absolute Nucleated RBC Nucleated RBC % (auto) D-Dimer High Sensitivty Anion Gap Estim Creat Clear Calc Estimated GFR Random Glucose Calcium Magnesium Total Bilirubin Direct Bilirubin AST ALT Alkaline Phosphatase Troponin I High Sens 51.1 H* Total Protein Albumin Urine Color Urine Appearance Urine pH Ur Specific [place] Urine Protein Urine Glucose (UA) Urine Ketones Urine Blood Urine Nitrite Ur Leukocyte Esterase Urine RBC Urine WBC Ur Squamous Epith Cells Talc Crystals Urine Bacteria Hyaline Casts Granular Casts Urine Mucus Urine Opiates Screen Not Detected Urine Fentanyl Screen Not Detected Ur Barbiturates Screen Not Detected Ur Phencyclidine Scrn Not Detected Ur Amphetamines Screen Not Detected U Benzodiazepines Scrn Not Detected Urine Cocaine Screen Not Detected U Marijuana (THC) Screen Not Detected Ethyl Alcohol COVID-19 ([facility]) Negative COVID-19 Clin Com See Note Assessment and Plan (1) Syncope: Status: Acute Assessment and Plan: 45F presented with syncope and withdrawal alcohol dependence with withdrawal pheonarbital protocol ciwa b1, folic acid BENIGNO holding lisinopril ivf monitor bmp hypomagnesemia replace and monitor syncope related to withdrawal and anxiety monitor on tele anxiety continue phenobarb follow up psychiatry breast cancer reports noncompliance outpatient follow up htn holding lisinopril high normal, monitor for now Quality Stroke Does the patient have a stroke diagnosis?: No VTE Prior VTE?: No VTE Risk Level:: Medical - moderate - high VTE Device Contraindication: Treatment Not Indicated VTE Drug Contraindication: N/A - Med Ordered
[2021-10-01] MEDS: Folic Acid 1 MG TABLET PO (11:14)
[2021-10-01] MEDS: Omeprazole 20 MG CAPSULE.DR PO (11:14)
[2021-10-01] MEDS: Thiamine HCL 100 MG TABLET PO (11:14)
[2021-10-01] MEDS: Loratadine 10 MG TABLET PO (11:14)
[2021-10-01] MEDS: Enoxaparin Sodium 40 MG/0.4 ML SYRINGE SUBCUT (11:14)
[2021-10-01] MEDS: Lactated Ringers 1,000 ML 100 ML IVCONT ×2 (11:39→20:59)
[2021-10-01] MEDS: Ergocalciferol (Vitamin D2) 1,250 MCG CAPSULE 1250 MCG PO (12:15)
[2021-10-01] MEDS: Magnesium Oxide 400 MG TABLET PO (17:45)
--- NOTE | 2021-10-01 19:45 | PC.NURSE ---
report to JULIO CESAR Warner. Pt awaiting for transfer to floor.
[2021-10-02 03:41] VITALS: BP 159/110; PULSE 101; RESP 18; TEMP 36.3; O2SAT 98
[2021-10-02 04:06] VITALS: BP 170/90
[2021-10-02 06:13] LABS: MANUAL DIFF FLAG NO
[2021-10-02] MEDS: Omeprazole 20 MG CAPSULE.DR PO (06:34)
[2021-10-02] MEDS: Lactated Ringers 1,000 ML 100 ML IVCONT (06:34)
[2021-10-02 07:03] LABS: Alanine Aminotransferase 21 U/L (0-31); Albumin Level 3.4 g/dL (3.5-5.0); Alkaline Phosphatase 105 U/L (39-117); Anion Gap 13 (12-20); Aspartate Amino Transferase 23 U/L (5-31); Bilirubin Direct 0.2 mg/dL (0.0-0.5); Bilirubin Total 0.4 mg/dL (0.0-1.0); Blood Urea Nitrogen 23 mg/dL (9-16); Calcium 8.4 mg/dL (8.4-10.2); Carbon Dioxide 25 mmol/L (22-29); Chloride 103 mmol/L (96-108); Creatinine Clr Calc Pharmacy 95.6; Estimated Glomerular Filt Rate > 60; Glucose Fasting 105 mg/dL (60-99); Magnesium 1.5 mg/dL (1.6-2.6); Potassium 3.4 mmol/L (3.3-5.1); Sodium 138 mmol/L (135-145); Total Protein 6.2 g/dL (6.5-8.0)
[2021-10-02 07:07] LABS: Basophils Percent Auto 0.6 % (0-2); Eosinophils Absolute Auto 0.2 X10*3/uL (0.0-0.4); Eosinophils Percent Auto 2.8 % (0-4); Hematocrit 37.8 % (37.0-47.0); Hemoglobin 12.4 g/dl (12.0-16.0); Imm Gran Abs Auto 0.02 X10*3/uL (0.00-0.03); Imm Gran Pct Auto 0.3 % (0.0-0.4); Lymphocytes Absolute Auto 2.6 X10*3/uL (1.2-4.9); Lymphocytes Percent Auto 36.3 % (20-40); Mean Corpuscular HGB Conc 32.8 g/dl (31.0-35.0); Mean Corpuscular Hemoglobin 30.2 pg (27.0-33.0); Mean Platelet Volume 11.5 fL (9.4-12.3); Monocytes Absolute Auto 0.4 X10*3/uL (0.1-1.2); Monocytes Percent Auto 5.7 % (2-11); Neutrophils Absolute Auto 3.9 x10*3/uL (2.0-8.3); Neutrophils Percent Auto 54.3 % (45-73); Platelet Count 187 X10*3/uL (160-400); Red Blood Count 4.11 X10*6/uL (4.20-5.50); Red Cell Distribution Width 13.5 % (11.0-16.0); White Blood Count 7.2 X10*3/uL (4.8-10.8)
[2021-10-02 07:23] VITALS: BP 168/100; PULSE 99; RESP 18; TEMP 36.4; O2SAT 98
[2021-10-02] MEDS: Magnesium Sulfate/H2O 2 GM/50 ML PIGGYBACK IV (08:12)
[2021-10-02] MEDS: Loratadine 10 MG TABLET PO (08:13)
[2021-10-02] MEDS: Folic Acid 1 MG TABLET PO (08:13)
[2021-10-02] MEDS: Thiamine HCL 100 MG TABLET PO (08:13)
[2021-10-02] MEDS: Magnesium Oxide 400 MG TABLET PO (08:13)
[2021-10-02] MEDS: Docusate Sodium 100 MG CAPSULE PO (08:21)
--- NOTE | 2021-10-02 08:27 | PC.NURSE ---
Patient refused scheduled phenobarbital this AM. Stated that the medication causes hallucinations. made aware.
[2021-10-02 11:04] VITALS: BP 168/92; RESP 18; TEMP 36.6; O2SAT 98
--- NOTE | 2021-10-02 11:32 | HO.PM.IMPN ---
Subjective Subjective Date of Service: 10/02/21 Interval History: the patient was seen and evaluated this morning Laying in bed, feels very anxious and concerned Medically doing better, alcohol withdrawal improved significantly Denies any fever, chills or shortness of breath No reported other overnight events. Systemic review: No fever, chills but feels anxious and worried No chest pain, palpitation No shortness of breath or coughing No abdominal pain, nausea or vomiting No urinary symptoms No any rash or wounds Physical Exam Vital Signs: Vital Signs: Last Vital Signs Temp 97.9 F 10/02/21 11:04 Pulse 99 10/02/21 07:23 Resp 18 10/02/21 11:04 BP 168/92 H 10/02/21 11:04 Pulse Ox 98 10/02/21 11:04 BMI result Body Mass Index 29.0 Const: Other: Constitutional : Alert, oriented, in mild distress from anxiety Neck : Normal inspection, Supple Cardiovascular : RRR, S1 S2, no lower extremity edema Respiratory : Fair bilateral air entry, no crackles, wheezes or rhonchi Gastrointestinal: soft, lax, Normal bowel sounds, Non tender Skin : Warm, Dry Neurological : Alert & oriented x3, No focal deficit Objective Data Active Medications Acetaminophen (Acetaminophen 325 Mg Tablet) 650 mg PO Q6H PRN PRN Reason: Pain, Mild (Pain Scale 1-3) Albuterol Sulfate (Albuterol Sulfate 90 Mcg 8 Gm Inhaler) 2 puff INHALE Q4H PRN PRN Reason: shortness of breath or wheezing Clonidine HCl (Clonidine Hcl 0.1 Mg Tablet) 0.1 mg PO BEDTIME PRN; Protocol PRN Reason: Anxiety Docusate Sodium (Docusate Sodium 100 Mg Capsule) 100 mg PO DAILY PRN PRN Reason: Constipation Last Admin: 10/02/21 08:21 Dose: 100 mg Documented by: TE Enoxaparin Sodium (Enoxaparin Sodium 40 Mg/0.4 Ml Syringe) 40 mg SUBCUT Q24H [facility] Last Admin: 10/01/21 11:14 Dose: 40 mg Documented by: LYNSDAY Ergocalciferol (Ergocalciferol (Vitamin D2) 1,250 Mcg Capsule) 1,250 mcg PO TU@0900 [facility] Last Admin: 10/01/21 12:15 Dose: 1,250 mcg Documented by: LYNDSAY Folic Acid (Folic Acid 1 Mg Tablet) 1 mg PO DAILY [facility] Last Admin: 10/02/21 08:13 Dose: 1 mg Documented by: TE Lactated Ringer's (Lr) 1,000 mls @ 100 mls/hr IVCONT .Q10H [facility] Last Admin: 10/02/21 06:34 Dose: 100 mls/hr Documented by: FABIO Lidocaine (Lidocaine 4 % Patch Adh..Patch) 1 patch TRANSDERMA DAILY PRN PRN Reason: Pain (Scale Score 1-3) Loratadine (Loratadine 10 Mg Tablet) 10 mg PO DAILY [facility] Last Admin: 10/02/21 08:13 Dose: 10 mg Documented by: TE Magnesium Oxide (Magnesium Oxide 400 Mg Tablet) [facility] Admin: 10/02/21 08:13 Dose: 400 mg Documented by: TE Medication (No Benzodiazepines) 1 each MISCELLANE DAILY [facility] Omeprazole (Omeprazole 20 Mg Capsule.Dr) 20 mg PO DAILY@0630 [facility] Last Admin: 10/02/21 06:34 Dose: 20 mg Documented by: FABIO Ondansetron HCl (Ondansetron Hcl 4 Mg/2 Ml Vial) 4 mg IVPUSH Q8H PRN PRN Reason: Nausea and Vomiting Pharmacy Consult (Consult Rx Perform Med Rec) 1 each MISCELLANE ONCE PRN PRN Reason: Consult order Phenobarbital (Phenobarbital 15 Mg Tablet) 45 mg PO BID [facility] Stop: 10/02/21 21:01 Last Admin: 10/02/21 08:27 Dose: Not Given Documented by: TE Non-Admin Reason: patient refused Phenobarbital (Phenobarbital 15 Mg Tablet) 15 mg PO BID [facility] Stop: 10/04/21 21:01 Phenobarbital (Phenobarbital 15 Mg Tablet) 15 mg PO DAILY [facility] Stop: 10/06/21 09:01 Thiamine HCl (Thiamine Hcl 100 Mg Tablet) 100 mg PO DAILY [facility] Last Admin: 10/02/21 08:13 Dose: 100 mg Documented by: TE Labs CBC & Chem 7: 10/02/21 05:50 10/02/21 05:50 Labs: Laboratory Results - last 24 hr 10/02/21 10/02/21 05:50 05:50 MCV 92.0 MCH 30.2 MCHC 32.8 RDW 13.5 Plt Count 187 D MPV 11.5 Immature Gran % (Auto) 0.3 Neut % (Auto) 54.3 Lymph % (Auto) 36.3 [place] % (Auto) 5.7 Eos % (Auto) 2.8 Baso % (Auto) 0.6 Lymph # (Auto) 2.6 [place] # (Auto) 0.4 Eos # (Auto) 0.2 Baso # (Auto) 0.0 Abs Immat Gran (auto) 0.02 Absolute Neuts (auto) 3.9 Absolute Nucleated RBC 0.000 Nucleated RBC % (auto) 0.0 Anion Gap 13 Estim Creat Clear Calc 95.6 Estimated GFR > 60 Fasting Glucose 105 H Calcium 8.4 D Magnesium 1.5 L Total Bilirubin 0.4 Direct Bilirubin 0.2 AST 23 D ALT 21 Alkaline Phosphatase 105 Total Protein 6.2 L Albumin 3.4 L Assessment and Plan (1) Alcohol withdrawal: Status: Acute (2) Syncope: Status: Acute (3) Hypomagnesemia: Status: Acute Assessment and Plan: 45F presented with syncope and withdrawal alcohol dependence with withdrawal Improving significantly Continue pheonarbital protocol ciwa b1, folic acid BENIGNO Improving holding lisinopril Discontinue IV fluids monitor bmp hypomagnesemia Replacement given To monitor syncope related to withdrawal and anxiety monitor on tele Anxiety disorder and attacks To get psychiatry and pH and evaluation breast cancer reports noncompliance outpatient follow up htn holding lisinopril high normal, monitor for now Quality Stroke Does the patient have a stroke diagnosis?: No VTE Prior VTE?: No VTE Risk Level:: Medical - moderate - high VTE Device Contraindication: Treatment Not Indicated VTE Drug Contraindication: N/A - Med Ordered
[2021-10-02] MEDS: Enoxaparin Sodium 40 MG/0.4 ML SYRINGE SUBCUT (12:02)
--- NOTE | 2021-10-02 12:22 | MHC.RECOVRN ---
T/w met with pt in 443 after consult placed to CARE Team for anxiety and alcohol use. Pt reports alcohol binge x 9 days prior to Thanksgiving. Pt unable to quantify how much alcohol, states liters. Pt attributes increased alcohol use to recent of mother. Pt has not received tx specific for AUD in the past, however, reports dual dx admissions. Pt identifies anxiety as a trigger for alcohol use. Pt currently engaged in therapy at [facility] and also has an appointment Thursday with Dr. Martin to initiate naltrexone. Pt provided with information regarding medications as well as other community supports. Discussed with Junie España APRN. T/w available as needed.
--- NOTE | 2021-10-02 13:26 | MHC.CARE ---
CARE Team meets with pt upon receiving a request for a consult.? Pt reports lifelong ever present anxiety which has been increasing in intensity for the ?last few months?.? Pt reports that her mother in August of this year after being sick for a period of time.? She stated that she has difficulty dealing with and that the of her father when she was 12 still feels like it just happened.? Anniversaries of deaths have been traditionally challenging for pt as well.? Pt stated that her anxiety started at around the age of 12 though she suspects that she had anxiety earlier than that, she stated that 12 was the age she ?Noticed it?.? Along with anxiety, pt experiences depression.? She stated that she had an attempt at suicide 15 to 20 years ago and no such attempts or thoughts since. Pt is not presently on any medication, but at one time was prescribed Clonopin by her psychiatrist.? Pt no longer sees that psychiatrist and was taken off the Clonopin after she confessed to the psychiatrist that she relapsed on alcohol.? Pt presently has a therapist through [facility] that she has seen three times thus far. Pt has a hx of respite stays and in patient stays. Pt presently uses alcoholic beverages as a means to self-medicate when feeling anxious. Pt is alert and oriented x4 and is assessed in her room on the Intermediate Care Floor of [facility].? Pt is dressed in hospital attire and appears older than her stated age.? Her eye contact, speech and affect are within normal limits.? She denies AVH, SI, HI, and .? She does not appear delusional and does not appear to be experiencing symptoms of psychosis. Insight, judgement, memory, and concentration all appear to be good.? Impulse control is questionable, particularly when alcohol s involved. Pt does not meet criteria for inpatient admission.? CARE Team will refer pt to the Partial Hospitalization Program.
--- NOTE | 2021-10-02 13:30 | P.DS_ITS ---
DS: Providers Provider Date of Service: 10/02/21 Date of admission: 09/30/21 20:30 Primary care physician: [facility] Consults: 10/01/21 09:40 Consult to Psychiatry Routine Consulting Provider: Psych Covering Reason for consultation: severe anxiety Has provider been notified: No 10/02/21 07:40 Consult to Care Team Routine Comment: Reason for consultation: Increased anxiety, alcohol abuse DS: Diagnosis Discharge Diagnosis (1) Alcohol withdrawal: Status: Acute (2) Syncope: Status: Acute (3) Hypomagnesemia: Status: Acute (4) Acute anxiety: Status: Acute DS: Summary Hospital Course Hospital Course: Admission note HPI ?45-year-old female with past medical history of alcohol abuse, severe anxiety, panic attacks, hypertension, GERD, history of breast cancer status post right mastectomy, presents to the hospital with complaints of severe anxiety, feeling overwhelmed, having a syncopal episode at home.? 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 She pulled herself to the bathroom and called EMS.? She denies having any chest pain, no shortness of breath although she felt like she was having a panic attack, denies having any abdominal pain nausea or vomiting, no diarrhea constipation although had loss of bowel control during the syncopal episode.? Denies any jerking movement, no urinary symptoms and no lower extremity edema.? Patient reports that she has been not eating or drinking well for the past few days.? Or other residents any fever or chills.? On arrival to the ED patient hemodynamically stable with no significant abnormal vitals Labs are significant for WBC count of 11.3, creatinine of 1.67 with a baseline of 1.10 on 21/06, Mag of 1.3, AST of 44, ALT of 42, high sensitivity troponin of 54.6, 51.1 on repeat, UA negative, UDS negative, alcohol was positive on the 29 of September, negative? today. ? Patient started on phenobarb protocol, CT angiogram was done for syncope which was negative for VT. Hospital course Patient was admitted for treatment of alcohol withdrawal. She reported syncopal episodes which believed to be related to alcohol intoxication. CT scan was negative for any acute findings. She was treated for withdrawal with phenobarbital protocol with fair response over the course of hospital stay as she was able to ambulate and tolerate diet with no reported physical findings. She was evaluated as well for increased anxiety level. Evaluated by the care team who recommended outpatient follow-up by the [facility]. Noted to have acute kidney injury treated with IV fluid with good response. Kidney function improved from 1.6-0.9 at time of discharge around baseline. Noted to have low magnesium level. Received IV replacement. To be discharged on p.o. magnesium oxide. Time Spent with Patient Time attestation: Total time spent providing and/or coordinating discharge services: Discharge coordination time: Greater than 30 minutes Quality: Stroke Does the patient have a stroke diagnosis?: No Physical Exam Vital Signs: Vital Signs: Last Vital Signs Temp 97.9 F 10/02/21 11:04 Pulse 99 10/02/21 07:23 Resp 18 10/02/21 11:04 BP 168/92 H 10/02/21 11:04 Pulse Ox 98 10/02/21 11:04 BMI result Body Mass Index 29.0 Const: Other: Constitutional : Alert, oriented, not in distress Neck : Normal inspection, Supple Cardiovascular : RRR, S1 S2, no lower extremity edema Respiratory : Fair bilateral air entry, no crackles, wheezes or rhonchi Gastrointestinal: soft, lax, Normal bowel sounds, Non tender Skin : Warm, Dry Neurological : Alert & oriented x3, No focal deficit DS: Data Data Completed and Pending Labs on day of discharge: Laboratory Results - last 24 hr 10/02/21 10/02/21 05:50 05:50 WBC 7.2 RBC 4.11 L Hgb 12.4 Hct 37.8 MCV 92.0 MCH 30.2 MCHC 32.8 RDW 13.5 Plt Count 187 D MPV 11.5 Immature Gran % (Auto) 0.3 Neut % (Auto) 54.3 Lymph % (Auto) 36.3 [place] % (Auto) 5.7 Eos % (Auto) 2.8 Baso % (Auto) 0.6 Lymph # (Auto) 2.6 [place] # (Auto) 0.4 Eos # (Auto) 0.2 Baso # (Auto) 0.0 Abs Immat Gran (auto) 0.02 Absolute Neuts (auto) 3.9 Absolute Nucleated RBC 0.000 Nucleated RBC % (auto) 0.0 Sodium 138 Potassium 3.4 Chloride 103 Carbon Dioxide 25 Anion Gap 13 BUN 23 H Creatinine 0.81 Estim Creat Clear Calc 95.6 Estimated GFR > 60 Fasting Glucose 105 H Calcium 8.4 D Magnesium 1.5 L Total Bilirubin 0.4 Direct Bilirubin 0.2 AST 23 D ALT 21 Alkaline Phosphatase 105 Total Protein 6.2 L Albumin 3.4 L Discharge Plan Discharge Patient Disposition: Home, Self-Care Discharge Diagnosis: Alcohol withdrawal Hypomagnesemia Anxiety disorder Referrals: Partial Hospitalization Program [Other] - 1 Week Center[facility] [Primary Care Provider] - 1 Week Discharge Medications: New magnesium oxide 400 mg (241.3 mg magnesium) Tablet 400 mg PO BIDPC 30 Days Qty: 60 RF: 0 Continued (DME) ACL [facility] brace See Rx Instructions .ROUTE .MEDSUPPLY Qty: 1 RF: 0 ergocalciferol (vitamin D2) 1,250 mcg (50,000 unit) capsule 1 cap PO TU@0900 RF: 0 albuterol sulfate 90 mcg/actuation HFA aerosol inhaler 2 puff inhalation Q4-6H PRN (Reason: shortness of breath or wheezing) Qty: 8.5 RF: 0 clonidine HCl 0.1 mg tablet 1 tab PO BEDTIME PRN (Reason: Anxiety) RF: 0 thiamine HCl (vitamin B1) 100 mg tablet 1 tab PO DAILY RF: 0 acetaminophen 500 mg tablet 1 tab PO Q6H PRN (Reason: Pain (Scale Score 1-3)) RF: 0 lidocaine 5 % adhesive patch,medicated 1 patch topical DAILY PRN (Reason: Pain (Scale Score 1-3)) RF: 0 magnesium oxide 500 mg tablet 1 tab PO DAILY RF: 0 omeprazole 20 mg capsule,delayed release(DR/EC) 1 cap PO DAILY@0630 RF: 0 folic acid 1 mg tablet 1 tab PO DAILY RF: 0 loratadine 10 mg tablet 1 tab PO DAILY RF: 0 Discharge Orders: Discharge Order (Routine); Ordered 10/02/21 Ordered By: Marvel Woodward Diet: advance to usual diet Activity on Discharge: As tolerated Stand Alone Forms: Patient Portal Discharge page Care Plan Goals: Read below Health Concerns: Read below Plan of Treatment: Read below Assessment: You were admitted to the hospital for treatment of alcohol withdrawal. He received phenobarbital with fair response and noted to have acute kidney injury treated with IV fluid with improvement of your kidneys back to baseline. You were evaluated by the care team for increased anxiety level. Advised for follow-up with [facility] from home. We advise you to quit drinking alcohol. Take magnesium oxide twice Daily To follow up with the [facility] as outpatient Discharge Date/Time: 10/02/21 15:45
--- NOTE | 2021-10-02 13:32 | MHC.CM.PN ---
Patient has been medically cleared for dc to home today, self care.CM understanding is that the Care Team is recommencing and arranging for Partial Psych admission (see Care Team PN).
--- NOTE | 2021-10-02 13:36 | MHC.CM.PN ---
Patient has been medically cleared for dc to home today, self care.Care Team appears to be recommending and arranging for Partial Hospitalization Program.
--- NOTE | 2021-10-02 14:43 | MHC.CM.PN ---
CM met with Patient at bedside; she is pleased to be returning home today.Patient phoned her [id number], who will provide transportation to home at 3:30PM.DOUGLAS has informed Patient's RN/Jayashree of this plan, via [place] text.
--- OUTSIDE RECORDS SUMMARY | 2021-10-03 11:07 | XMS_ITS ---
:1975 Author Name Shereen Latham Care Team Providers Name Role Phone Shereen Latham MD Unavailable Unavailable Allergies, Adverse Reactions, Alerts Substance Reaction Status Criticality hydrocodone Itching (unknown) Active No Information ibuprofen Abdominal pain Active No Information trimethoprim Active No Information sulfamethoxazole Active No Information amoxicillin Itching Active No Information Medications Medication Instructions Dosage Effective Dates Status Comment s (start - stop) thiamine HCl Take 1 tablet by 1 tablet - Active (vitamin B1) 100 oral route every mg tablet day magnesium oxide take 1 tab po daily - Active 500 mg tablet folic acid 1 mg take 1 tablet by 1 MG - Active tablet oral route every day loratadine 10 mg take 1 tablet by 10 MG - Active tablet oral route every day Vitamin D3 25 mcg 1 tab po daily - Active (1,000 unit) capsule PreviDent 5000 apply 1 by oral 1 - Active Sensitive 1.1 %-5 route 2 times every % dental paste day Tylenol Extra take 1 tablet by 500 MG - Active Strength 500 mg oral route every 6 tablet - 8 hours as needed not to exceed 8 tablets per 24hrs for fever, body aches omeprazole 20 mg take 1 capsule by 20 MG - Active capsule,delayed oral route every release day before a meal Flonase Allergy spray 1 - 2 spray by - Active Relief 50 intranasal route mcg/actuation every day nasal spray,suspension lidocaine 5 % apply 1 patch by 1.00 patch - Active topical patch transdermal route every day (May wear up to 12hours.) for knee pain lisinopril 30 mg take 1 tablet by 30 MG - Active Increased dose tablet oral route every day clonidine HCl 0.1 take 1 tablet by - Active mg tablet oral route QHS albuterol sulfate inhale 2 puffs by 2 puffs - Active HFA 90 Inhalation route 4 mcg/actuation times every day as aerosol inhaler needed for shortness of breath Mucinex 600 mg take 1 tablet by 600 MG - Active tablet, extended oral route every 12 release hours as needed for cough amlodipine 5 mg take 1 tablet by 5 MG - Active dose decreased tablet oral route every 1 day baclofen 10 mg take 1 tablet by 10 MG - Active tablet oral route 2 times every day as needed for muscle spasm Medrol (Shiva) 4 mg for Take as - Active tablets in a dose directed on dose pack pack Miralax 17 gram take 1 packet by 17 G - Active oral powder oral route every packet day mixed with 8 oz. water, juice, soda, coffee or tea as needed *MEDBOX* MISCELL Use as directed for - Active MISCELL medication administration Problems Condition Type Effective Dates Clinical Status Comments (start - stop) Atypical glandular cells Problem (finding) - Active on cervical Papanicolaou smear Generalized aches and Problem (finding) - Active pains Polysubstance abuse Problem (finding) - Active Depressive disorder Problem (finding) - Active Anxiety Problem (finding) - Active Carpal tunnel syndrome Problem (finding) - Active Tobacco dependence Problem (finding) - Active syndrome Fibromyalgia Problem (finding) Active Advance Directives Directive Yes / No Effective Date File Name No Information Encounters Encounter Practice Location Reason(s) Diagnoses Date Provider Provide rs Description For Visit Copied on Encounter [facility] No [employer] [facility], [address] [place] [address], [address] [facility], [place], [place], [id number], [id number] [place]. , [place] tel:[phone] tel:[phone] [facility] No [employer] 7- Shereen. Center, 1 [address] [employer] [address] [facility] [place], [place], [id number], [id number] [place]. , [place] tel:+ tel: [phone] [facility] No [facility] Information [facility]. [facility], 1 [address] [employer] [address] [facility] [place], [place], [id number], [id number] [place]. , [place] tel: tel: [phone] [facility] Dental No [facility] Health Information Leo. 230 Center, 1 [employer] [address] [place] [address], [place], [address], [place], [place]. [id number] tel: , [place] [address] tel: [phone] [facility] No [place] [facility] Information 0- Shereen. Center, 1 [address] [employer] [address] [facility], [place], [place], [id number], [id number] [place]. , [place] tel: tel: [phone] [facility] Medical Follow-up No [facility] chronic Information Dinora. Center, conditions 1 [address] [employer] 230 ([facility] [place], [address], [place], [place]. [id number] tel: , [place] [address]14 tel: [phone] [facility] No [place] [facility] Information [facility]. [facility], 1 [address] [employer] [address] [facility] [place], [place], [place], [id number], [id number] [place]. , [place] tel:[phone] tel:[phone] [facility] No [facility] Information 0-202 [facility]. [facility], 1 [address] [employer] [address] [facility] [place], [place], [place], [id number], [id number] [place]. , [place] tel: tel: [phone] [facility] fever No [facility] chills, [place], Information [facility], cough (chief 1 [employer] 230 complaint) [address] [facility], [address], [place], [place], [place], [place], [id number], , [place]. tel: tel: [phone] [facility] COVID19 No [facility] Vaccination Information Lopez Provider : Tracy, (chief 1 Dionte. [employer], 230 complaint) [address] [facility], [address] [facility], [address], [facility], [place], [place], [place], [address], [place], [id number] [place], [address]. , [place] tel: tel: [phone] [facility] multiple No [facility] concerns Information Shereen. Tracy, (chief 1 [address] [employer] [address], [facility], [place], [place], [place], [place], [id number], [id number] [place]. , [place] tel: tel: [phone] [facility] ASK-Left No [facility] Telemedicine sided pain Information la Jelly. Tracy, from fall 0 230 [employer], [address], [facility], complaint)Te [place], [address], [place], (chief [place]. [id number] complaint) tel: , [place] tel: [phone] [facility] MTM (chief No [facility] complaint) Information Jaehyun. Provider : Tracy, 0 [address], [address], [facility], [place], Dietl, [address] [place], [address], [address], [place], [place]. [place], [id number] tel: [place], [phone]. , [place] tel: tel: [phone] [facility] No [place] [facility] Information Shereen. Center, 0 [address] [employer], [place], [place], [place], [place], [id number], [id number] [place]. , [place] tel: tel: [phone] [facility] No [place] Information Shereen. Center, [address] [employer], [place], [place], [place], [place], [id number], [id number] [place]. , [place] tel: tel: [phone] [facility] anxiety No [facility] (chief Information Shereen. Center, complaint)an 9 [address] [employer] [address] ([address], [address], complaint) [place], [place], [id number], [id number] [place]. , [place] tel: tel: [phone] [facility] No [facility] Information 5-201 Yeshvant. Center, [address] [employer], [place], [place], [place], [place], [id number], [id number] [place]. , [place] tel: tel: [phone] [facility] chronic No [facility] conditions Information 8-201 Shereen. Center, (chief [address] [employer], [address], [place], [place], [place], [id number], [id number] [place]. , [place] tel: tel: [phone] [facility] No [facility] Information 2-201 Yeshvant. Center, [address] [employer], [place], [place], [place], [id number], [id number] [place]. , [place] tel: tel: [phone] [facility] Family No [facility] Practice Information 9-201 Shereen. Tracy, 2 [address] [employer] [address], [facility], [place], [place], [place], [place], [id number], [id number] [place]. , [place] tel: tel: [phone] Family History Family Member Type Diagnosis Age At Onset No Information Immunizations Vaccine Date Status Comments COVID-19 (J&J) administered Note: pt. well t olerated. RN ask to wait for 15 - 30 min time frame for o bservation but pt. denied and l eft right after vaccinatio n. ; Source: New Immunization Record HepB-CpG(Heplisav-B) administered Source: Oth er Registry Td-preservative free administered Source: Oth er Registry Influenza, split virus, administered Source: New Immunization injectable, quadrivalent, 3 Manuel rd years or older Fluzone Quad 1012-0364 pneumo (2 yrs or older) administered Source: New Immunization (PPV23) Record hep B (adult) administered Source: New Immu nization Record Td unknown Source: Other Re gistry hep B (adult) administered Source: New Immu nization Record Td (7 yrs and older) administered Source: New Immunization Record Td unknown Source: Other Re gistry polio, inactivated (IPV) administered Source: New Immunization Record Td (7 yrs and older) administered Source: New Immunization Record Td unknown Source: Other Re gistry Td (7 yrs and older) administered Source: New Immunization Record polio, inactivated (IPV) administered Source: New Immunization Record DTP administered Source: New Immu nization Record polio, inactivated (IPV) administered Source: New Immunization Record polio, inactivated (IPV) administered Source: New Immunization Record DTP administered Source: New Immu nization Record MMR administered Source: New Immu nization Record Payers Payer name Insurance type Covered alliance party ID Authorization(s ) C3 Standard [id number] [facility] Adult [id number] Social History Type Description Quantity Date Captured Comments Sex Female Smoking Status No Information Chief Complaint And Reason For Visit No Information Reason For Referral Reason For Referral Plan Of Treatment Date Type Action Status Appointment Azra Cast BOOKED Appointment Azra Cast BOOKED History Of Present Illness Encounter Date Complaint History Of Present I llness Follow-up chronic conditions 45 y/o fema le with h/o ductal carcinoma of the sapphire ast, UE DVT, polysubstance abuse, tobacco dependence, anxiety contacted for f/u chronic conditions. She is overwhelmed from [place] and is living in hotels or in her car when she runs out [employer]. She states she has been contacting a woman named Dinora through [employer] and is trying to seek place ment. She is frustrated with the system and she doesn't even know wh o is calling her anymore, she express es difficulty keeping up with the number of phone calls she is receivi ng from different people. She reports her knee is giving out and c/o s houlder pain. She is also reporting fa tigue. Continues to drink alcohol, sh e is not interested in referr al for MAT treatment. fever chills, BA, cough This 45 year old female with a h/o (comments) anxiety and depressi on c/o fever, chills, body aches a nd cough x 4 days. Patietn noted exposure to positive covid indiv idual started to have symptoms 4 days ago. light smoker, has minimal sob occasionally. Undocumented fever. Denies chest pain. Has dry cough. fever chills, BA, cough COVID19 Vaccination COVID-19 VACCINES: P t here for Covid-19 vaccine. Th is is the Pt's 1st dose of Juan Miguel Covid-19 vaccine. Pt denies receiving any vaccines in the last 14 days. Pt denies allergies to vaccine component s, PEG, medications, or food . Pt denies feeling sick or havi ng a fever in the last 72 hours. O: Te mperature taken at entrance screenin g station is within normal limits . Juan Miguel vaccine administered to left arm. Lot # [id number], expiration date 04/24/2021. Pt tolerated injecti on well. A/P: pt. asks to wait 15 - 30 min. time frame for observation but pt. denied and left right away afte r vaccination. Pt counseled on expe cted side effects of receiving a Covid -19 vaccine. Pt verbalized understan ding and agreed with plan.Gene Moreau RN. multiple concerns 45 y/o female lane rojas to the clinic for multiple concerns. She was last seen via televi sit on 11/28/2020 c/o whole body swell ing with pitting edema on both legs. The sx's are associated with fati gregg and SOB. She was in [facility] at that t mary. Today she reports the swelling has not improved. She still cannot sleep on her back. Denies betzaida g use. She reports she does not smoke frequently. She drin ks a pint and a couple of wine coole rs about 3-4 times a week.She rep orts that her BPs have been ok and are around the 140s. She states that she has not been taking metoprolol. ASK-Left sided pain from fall Patient re ports that on 09/03/2020 she fell, sprained her r ight ankle and reinjures her left k nee. Patient reports that she fel l on her left side injuring her le ft side, and back. Patient report s that she went to [facility] that night where her right ankle was x-rayed. S he was told that she had a sprain in her right ankle. Patient reported rebecca t no x-ray was done on her left kne e.Today patient reports that she is in constant pain, no matter what posit ion she is sitting in. She repo rts that she is experiencing a lot o f throbbing in her left leg and rig ht ankle especially at night. Patient also reports numbness and tingling in the back of her left kne e. Patient reports that her lef t calf feels warm to the touch, is red dened and is very painful. Patient sta sindhu that she felt a snap behind her le ft knee a few day ago and that is when the warmth, redness and pain beg an. She reports that she is taking t ylenol with out any relief.Patient r eports that she has a history of DVT in her upper extremity years ago. Patient reports that she called Orth o, and was told to f/u with PCP, the n after seen f/u up with Ortho.Patien t denies complaints of fever, chills, VIRAMONTES, dizziness, chest uriah n/pressure, palpitations, cough, sore throat, loss of taste/smell, abdominal pain/discomfort, laurie sea/vomiting, or change in bowels. Televisit Patient was contacte d by phone.This patient was identifi ed as meeting criteria for a prima care Televisit rather than an in pe rson visit due to public health concer ns around [facility]-. A complete assessment and plan is detailed in the note, all of which were conducted remotely using virtual visit techno logy. Patient identity was verball y confirmed with 2 identifiers at the start of the visit. Practitioner identified self by name, title, and place of work. Patient was located home during the visit. Provider was located in [facility] provider room. [facility] Pharmacy ConsultPhar pk Recommendations: Edison ross is being started on medbox to improve adherence to medicat ions. If BP continues to be abov e goal of <140/90 mmHg after increased adherence, consider increasing lisinopril from 20 mg daily to 40 mg daily. Per lab results from 01/08/20, patient was hypokalemic (3.1 mEq /L). With increased adherence to lisinopril, patient's K+ levels may increase. Consider ordering CM P to monitor patient's K+ levels. ACC/AHA guidelines recommend s moderate intensity statin for patient's 40-75 yo and LDL ? 70 mg/d L, w/o DM with ASCVD 5% but <7.5% a nd risk factors (patient specific ri sk factor: HTN, smoking). Per result s from FLP on 04/20/17, LDL >70 mg/ dL. Consider initiating atorvasta tin 10 mg daily (moderate intensity) . Order follow up Lipid panel and LFTs to be completed 4-12 weeks to assess safety and efficacy. If LDL ? 190 mg/dL, consider increasing atorvastatin to 40 mg daily (high in tensity). Begin medboxes per patient request. Please contact medbox pharm acist with any medication changes ( initiations, discontinuation, dos e adjustments). Problem List / Plan 1. Adherence History:o Patient reports non-adherence to chr onic medications due to feeling overw helmed with the quantity of medicati ons that she is currently taking. o Reports having naltrexone for alcoh ol dependence, however not currentl y using it. o Patient requests ref ills for baclofen and trazodone. o Pat ient denies use of any OTC medications/vitamins /supplements. o Patient denies use o f the following medications although they are listed as active medication s in [employer] (confirmed, no recen t fill history): Lyrica, capsaicin, v itamin B-1, folic acid, sodium and pot assium phosphates and Eucerin. o Rubens nt requests medbox to aid in med ication management. Goals of therapy:o Improve adherence an d minimize missed doses (<2 missed dos es per week) Assessment: o Medb ox requested for medication managemen to Medlist in EHR innacurate (REMOVE L yrica, capsaicin, vitamin B-1, folic a hien, sodium and potassium phosphates and Eucerin, ADD baclofen, trazodone) o Medication underuse/poor adhere nce (naltrexone)o Refills needed (bacl ofen, trazodone) Recommendations/Kadi toring:o Begin medboxes per patient request. Please contact medbox pharm acist with any medication changes ( initiations, discontinuation, dos e adjustments).o Pharmacy has updated [email or web address] Medlist to reflect patient's current use.o Educated patient on importance of taking naltrexone as prescribed for alcohol dependence. Patient confirmed understanding. o Ref ills requested for baclofen and tra zodone (08/10/20) Education was provid ed on:o [facility] medbox program (use of boxes, automatic refill, no tifying pharmacy of changes to meds, boxes are not child-resistant).o T he proper use and indications of all m edications2. Hypertension Pharma cologic Therapy:o Amlodipine 10 mg porsche lyo Lisinopril 20 mg dailyo Metoprolol tartrate 50 mg twice daily History :o BP was 160/94 mmHg today and 192/1 00 mmHg at last PCP visit (01/05/20). o Reports non adherence to current therapy, did not take medications thi s morning. o Patient reports bein g out of metoprolol for about 3 months. o Decreased potassium levels (3.1 mEq/L) on 01/08/20. o Reports checking BP when she feels he adaches, last BP check was about a we ek ago.o Patient reports BP readings of 200s/90s-100s. Goals of therapy p er JNC 8:o Achieve BP < 140/90 mmHg. Assessment: o Medic ation underuse/poor adhere nce (amlodipine, lisinopril, metoprol ol)o Inadequate patient self-managem ent of lifestyle and other non-drug v ariables (SBP)o Treatment not optima l based on current evidence/jose delines (uncontrolled BP) o Refills needed (metoprolol tartrate )o Abnormal lab result not addressed (K+) Recommendations/Kadi toring: o Educated patient on the importance of taking BP medication s daily to maintain BP under co ntrol and prevent cardiovascular risks . Patient confirmed understand ing. o Educated patient on using BP monitor as prescribed and keep a list of BP readings to bring at PCP visits. o Patient is being sta rted on medbox to improve adherence to medications. If BP continues to be a rosas goal of <140/90 mmHg after i ncreased adherence, consider increasing lisinopril from 20 m g daily to 40 mg daily. o Refills req uested for metoprolol tartrate (08/10/20). o Per lab results from 01/07, patient was hypokalemic (3.1 mEq /L). With increased adherence to lisinopril, patient's K+ levels may increase. Consider ordering CM P to monitor patient's K+ levels. Education:o Educated patient on BP goal of <140/90 mmHg. 3. ASC VD Risk Pharmacologic Therap y:o None History:o FLP was TC : 159, T, HDL: 49, LDL: 99 mg/ dL on 04/20/17. o 10 year ASCVD risk s core: 7.0%o LFTs were elevated (AST: 54, ALT: 34) on 01/08/20. Goals of t herapy per the ACC/AHA 2018 Cholest roderick Guidelines:o Ensure evidence base d and safe use of medications for prim aarti prevention of ASCVD. Assessment : o Untreated medical problem (ASC VD risk) Recommendations/Kadi toring:o ACC/AHA guidelines recommend s moderate intensity statin for patient's 40-75 yo and LDL ? 70 mg/d L, w/o DM with ASCVD 5% but <7.5% a nd risk factors (patient specific ri sk factor: HTN, smoking). Per result s from [facility]P on 04/20/17, LDL >70 mg/ dL. Consider initiating atorvasta tin 10 mg daily (moderate intensity) . Order follow up Lipid panel and LFTs to be completed 4-12 weeks to assess safety and efficacy. If LDL ? 190 mg/dL, consider increasing atorvastatin to 40 mg daily (high in tensity). 4. Immunizations Histo ry: o Patient is due for yearly influ rebecca vaccine at this time. o Per NG patient is due for Hep B 3rd dose ( 2nd dose received:09/01/2007) and TDap (last received: 07/16/2007) Goals of therapy:o Ensure pat ient receives all required vaccines as indicated in the CDC Adult Immunizati on Schedule. Assessment: o Vaccin ations needed (Flu, Hep B, TDap) Recommendations/Kadi toring: o Per CDC guidelines: Pa tients should receive a yearly inf luenza vaccine, pharmacy will admini ster at next MTM visit. Patients sh ould receive 3 doses of Hep B vacci efren, pharmacy administered 3rd dos e. Patients should receive TDap vaccine every 10 years, pharmacy admi nistered vaccine. Education: o Coleen cation of all recommended/administ ered vaccineso Anticipated side eff ects of vaccination (redness at injection site, mild injection site pain) 5. General / Intake R ead/Write: Yes in Stateless/[place]izen [place] Hea lt literacy assessment: Reports always needing help reading materia l from doctor and pharmacy. Allergie s: Hydrocodone (rash), ibuprofen (r kenyon), Bactrim (rash), Latex (rash) , Amoxicillin (rash) Recent Hospi talizations: Reports around 4 hos pitalizations within the last year . Social History:o Tobacco: 1 -2 cigarettes/anni Alco hol: 4-5 beers/weeko Caffeine : Denieso Illicit drugs: Denieso Exerc ise: DeniesPost MTMWhat CHRONIC medi cations is the patient need refills on? Who is the prescriber? Baclofen , trazodone, metoprolol (refills requested 08/10/20)Pharmacist N ata: Toya Hoyos PharmKaren Resident: Adam perry, PharmD anxiety anxiety Azra is a 43 y/o female with h/o anxiety, polysubstan ce abuse with EtOH and cocaine, br east cancer, DVT, depression, and SI w ho presents to the clinic for anxie ty. Per psych, Gabapentin raised to 300 mg. Started on clonidine HC1 0.1 tablet nighttime, amlodipin e 2.5 Tablet daily, clonazepam 1 mg 3x daily, fluoxetine 20 mg porsche ly, trazodone 50 mg bedtime prn, hydr oxyzine 25 mg bedtime prn. She acc epts referral to alcohol use clinic a nd HTN disorder clinic.EK11/05/18Ab normal ECG when compared with ECG of 11/05/18No significant change w as found chronic conditions chronic conditions (comments) 38 year ol d female here for routine follow up. She retur ivette to care in March 2015 after a yea r absence care. Her PMH is significa nt for breast cancer and RUE DVT a t place of pic line. She is doing m uch better. She compleated program f or substance abuse and is living in [facility].She is not l onger seeing therapy or psychiatr y but agrees to referral. She reprot s pain in ring finger at area of pa ranychia. She was seen in [facility] for this and prescribed Doxycycline but she did not start it. She reprots it is ge tting better. Functional Status Date Functional Assessment No Information Instructions Date Instruction Additional Informati on No Information Assessments Type Assessment Date No Information
== END 2021-10-02 15:45 | disposition home or self-care (01) | DRG 425 ==
LOC: HO.ED 19:28 → HO.EDOVER 20:33 → HO.IMC 10-01 17:57
PROVIDERS: Physician Assistant; Admitting Provider Internal Medicine; Emergency Provider Emergency Medicine; PCP Family Medicine; Visit Provider Student in an Organized Health Care Education/Training Program
DX: E83.42 Hypomagnesemia (principal); N17.9 Acute kidney failure, unspecified; F41.9 Anxiety disorder, unspecified; F10.239 Alcohol dependence with withdrawal, unspecified; F12.10 Cannabis abuse, uncomplicated; Z20.822 Contact with and (suspected) exposure to COVID-19; Z85.3 Personal history of malignant neoplasm of breast; K21.9 Gastro-esophageal reflux disease without esophagitis; I10 Essential (primary) hypertension; F10.120 Alcohol abuse with intoxication, uncomplicated; Y90.8 Blood alcohol level of 240 mg/100 ml or more; Z91.040 Latex allergy status; Z91.19 Patient's noncompliance with other medical treatment and regimen; Z88.0 Allergy status to penicillin; Z88.2 Allergy status to sulfonamides; Z88.5 Allergy status to narcotic agent; Z88.6 Allergy status to analgesic agent; Z79.899 Other long term (current) drug therapy
CPT/HCPCS: 36415; 71275; 80048; 80076; 80307; 81001; 82077; 83735; 84484; 85025; 85379; 87635; 93005; 96365; 96366; 96372; 99285; 99291; J1650; J2560; J3475; Q9967

== ENCOUNTER 2021-10-09 06:48 | Emergency (ER) | payer MEDICAID, SELFPAY ==
[2021-10-09 07:06] VITALS: BP 180/123; PULSE 106; RESP 20; TEMP 36.6; O2SAT 100; BMI 29.0
--- NOTE | 2021-10-09 07:27 | ED.GENADULT ---
HPI - General Adult General Chief complaint: General Medical Stated complaint: High Blood Pressure Time Seen by Provider: 10/09/21 07:09 Source: patient and old records reviewed Mode of arrival: ambulatory Limitations: no limitations History of Present Illness complaint: HTN Onset (ago): day(s) (1) Location: head and chest Severity: mild Quality: aching Pain Consistency: constant Relieving factors: none Exacerbating factors: other (her blood pressure has been high, states she doesn't really take her clonidine took her lisinopril yesterday but not today, took herself off amlodipine, last drink 2 days ago) Associated symptoms: chest pain and headaches Treatments prior to arrival: none Related Data Home Medications Medication Instructions Recorded Confirmed lisinopril 30 mg tablet 30 mg PO DAILY 07/26/21 09/30/21 ergocalciferol (vitamin D2) 1,250 1 cap PO TU@0900 08/13/21 09/30/21 mcg (50,000 unit) capsule acetaminophen 500 mg tablet 1 tab PO Q6H PRN 09/30/21 09/30/21 clonidine HCl 0.1 mg tablet 1 tab PO BEDTIME PRN 09/30/21 09/30/21 folic acid 1 mg tablet 1 tab PO DAILY 09/30/21 09/30/21 lidocaine 5 % topical patch 1 patch TOPICAL DAILY PRN 09/30/21 09/30/21 loratadine 10 mg tablet 1 tab PO DAILY 09/30/21 09/30/21 magnesium oxide 500 mg tablet 1 tab PO DAILY 09/30/21 09/30/21 omeprazole 20 mg capsule,delayed 1 cap PO DAILY@0630 09/30/21 09/30/21 release thiamine HCl (vitamin B1) 100 mg 1 tab PO DAILY 09/30/21 09/30/21 tablet Previous Rx's Medication Instructions Recorded ACL defiance brace #1 ea 07/29/21 albuterol sulfate 90 mcg/actuation 2 puff INHALATION Q4-6H PRN #8.5 g 09/12/21 aerosol inhaler magnesium oxide 400 mg (241.3 mg 400 mg PO BIDPC 30 Days #60 tab 10/02/21 magnesium) tablet chlordiazepoxide HCl 25 mg capsule 25 mg PO BID PRN #20 cap 10/09/21 metoprolol succinate 25 mg 25 mg PO DAILY #30 tab 10/09/21 tablet,extended release 24 hr Allergies Allergy/AdvReac Type Severity Reaction Status Date / Time amoxicillin [AMOXICILLIN] Allergy Intermediate rash, Verified 09/12/21 11:11 rash/itching sulfamethoxazole Allergy Intermediate RASH Verified 09/12/21 11:11 [From BACTRIM] trimethoprim [From BACTRIM] Allergy Intermediate RASH Verified 09/12/21 11:11 hydrocodone [Hydrocodone] Allergy Mild ITCH Verified 09/12/21 11:11 ibuprofen [From Motrin] Allergy Mild UPSET Verified 09/12/21 11:11 STOMACH latex [Latex] Allergy Mild ITCH Verified 09/12/21 11:11 Sulfa (Sulfonamide Allergy Unknown rash/itchin Verified 09/12/21 11:11 Antibiotics) g amoxicillin Allergy Unknown Unknown Uncoded 08/13/21 15:24 bactrim Allergy Unknown Unknown Uncoded 08/13/21 15:24 hydrocodone Allergy Unknown Unknown Uncoded 08/13/21 15:24 Hydrocodone-Ibuprofen Allergy Unknown rash/itchin Uncoded 08/13/21 15:24 g Latex Allergy Unknown Unknown Uncoded 08/13/21 15:24 latex Allergy Unknown Unknown Uncoded 08/13/21 15:24 motrin Allergy Unknown Unknown Uncoded 08/13/21 15:24 Review of Systems Review of Systems: Constitutional : No Fever, No Chills, No Fatigue ENT/Mouth : No sore throat, No Rhinorrhea Eyes: No Eye Pain, No Swelling, No Redness Cardiovascular : pos Chest Pain, No SOB, No Dyspnea on Exertion Respiratory : No Cough, No Sputum Gastrointestinal : No Nausea, No Vomiting, No Diarrhea, No abdominal Pain Genitourinary : No Dysuria, No Urinary Frequency, No Hematuria, Musculoskeletal : No joint pain, No Myalgias, No Joint Swelling Skin : No Skin Lesions, No rash Neuro : No Weakness, No Numbness, No Dizziness, positive Headache Psych : No Anxiety/Panic, No Depression Heme/Lymph: No Bruising, No Bleeding,No Lymphadenopathy Endocrine : No Polyuria, No Polydipsia All other systems reviewed and are negative [facility] Past Medical History Attestation statement: The following information was validated with the patient. Medical History Anxiety Breast cancer H/O ETOH abuse History of low potassium Hypertension Panic attack Surgical History H/O: hysterectomy Family History Family History (Updated 10/01/21 @ 05:43 by Florence Early MD) Mother Heart disease Alzheimers disease Social History Social History Household Members: Children Housing: House Do you presently have visiting nurse or other home services: No Alcohol intake: never Patient Tobacco Use Status: Current everyday Tobacco user Tobacco use type: Cigarette Use of substances other than those prescribed or required for medical reasons: No Advance Directives: No Advance Directives Date on File: 01/11/20 service: No Current occupational status: unemployed Physical Exam Vital Signs: Vital Signs: Last Vital Signs Temp 98.2 F 10/09/21 11:13 Pulse 100 10/09/21 11:15 Resp 18 10/09/21 11:13 BP 155/92 H 10/09/21 11:15 Pulse Ox 99 10/09/21 11:13 BMI result Body Mass Index 29.0 Appearance: Alert. Oriented X3. No acute distress. Anxious Eyes: Pupils equal, round and reactive to light. ENT: Pharynx normal. Neck: Normal inspection. Neck supple. CVS: tachycardic heart rate and rhythm. Pulses normal. Respiratory: No respiratory distress. Breath sounds normal. Abdomen: Soft and nontender. Skin: Skin warm and dry. Normal skin color. Normal skin turgor. Extremities: No lower extremity edema. No calf ttp Neuro: Oriented X 3. No motor deficit. No sensory deficit. Slight tremors noted Course Course Course Narrative: EKG no sig ischemic changes, trop decreasing feels better after ativan suspect withdrawal BP still slightly elevated refuses to take amlodipine took her lisinopril already will try oral metoprolol adamantly denies cocaine and has not been positive since 2019 BP drastically improved not toxic, chest pain since yesterday trop flat Medical Decision Making [facility] Narrative Medical decision making narrative: 45 yo female with hx of HTN, asthma, ETOH abuse here with c/o headaches chest pain elevated BP she did take her BP medications yesterday but has been intermittently compliant - her BP remains high she appears anxious and tremulous on exam - at this time unsure if this is withdrawal her last drink was 2 days ago. Will obtain EKG, labs, attempt IV ativan to see if this improves symptoms Lab Data Result diagrams: 10/09/21 08:22 12 08:22 Labs: Lab Results 10/09/21 10/09/21 12 Range/Units 08:02 08:22 08:22 WBC 7.6 (4.8-10.8) X10*3/uL RBC 3.96 L (4.20-5.50) X10*6/uL Hgb 12.3 (12.0-16.0) g/dl Hct 36.2 L (37.0-47.0) % MCV 91.4 (80.0-98.0) fL MCH 31.1 (27.0-33.0) pg MCHC 34.0 (31.0-35.0) g/dl RDW 13.7 (11.0-16.0) % Plt Count 286 D (160-400) X10*3/uL MPV 10.0 (9.4-12.3) fL Immature Gran % (Auto) 0.3 (0.0-0.4) % Neut % (Auto) 66.1 (45-73) % Lymph % (Auto) 23.3 (20-40) % [place] % (Auto) 7.8 (2-11) % Eos % (Auto) 2.0 (0-4) % Baso % (Auto) 0.5 (0-2) % Lymph # (Auto) 1.8 (1.2-4.9) X10*3/uL [place] # (Auto) 0.6 (0.1-1.2) X10*3/uL Eos # (Auto) 0.2 (0.0-0.4) X10*3/uL Baso # (Auto) 0.0 (0.0-0.2) X10*3/uL Abs Immat Gran (auto) 0.02 (0.00-0.03) X10*3/uL Absolute Neuts (auto) 5.0 (2.0-8.3) x10*3/uL Absolute Nucleated RBC 0.000 (0.0-0.012) X10*3/uL Nucleated RBC % (auto) 0.0 (0.0-0.2) /100WBC Sodium 141 (135-145) mmol/L Potassium 3.4 (3.3-5.1) mmol/L Chloride 105 (96-108) mmol/L Carbon Dioxide 26 (22-29) mmol/L Anion Gap 13 (12-20) BUN 13 (9-16) mg/dL Creatinine 0.77 (0.5-1.4) mg/dL Estim Creat Clear Calc 100.6 Estimated GFR > 60 Random Glucose 133 H (60-115) mg/dL Calcium 9.0 D (8.4-10.2) mg/dL Magnesium 1.6 (1.6-2.6) mg/dL Total Bilirubin 0.6 (0.0-1.0) mg/dL Direct Bilirubin 0.2 (0.0-0.5) mg/dL AST 19 (5-31) U/L ALT 23 (0-31) U/L Alkaline Phosphatase 106 (39-117) U/L Troponin I High Sens (<3.5-17.0) ng/L Total Protein 6.6 (6.5-8.0) g/dL Albumin 3.8 (3.5-5.0) g/dL Ethyl Alcohol mg/dL COVID-19 ([facility]) Negative (Negative) COVID-19 Clin Com See Note 10/09/21 10/09/21 10/09/21 Range/Units 08:22 09:28 09:28 WBC (4.8-10.8) X10*3/uL RBC (4.20-5.50) X10*6/uL Hgb (12.0-16.0) g/dl Hct (37.0-47.0) % MCV (80.0-98.0) fL MCH (27.0-33.0) pg MCHC (31.0-35.0) g/dl RDW (11.0-16.0) % Plt Count (160-400) X10*3/uL MPV (9.4-12.3) fL Immature Gran % (Auto) (0.0-0.4) % Neut % (Auto) (45-73) % Lymph % (Auto) (20-40) % [place] % (Auto) (2-11) % Eos % (Auto) (0-4) % Baso % (Auto) (0-2) % Lymph # (Auto) (1.2-4.9) X10*3/uL [place] # (Auto) (0.1-1.2) X10*3/uL Eos # (Auto) (0.0-0.4) X10*3/uL Baso # (Auto) (0.0-0.2) X10*3/uL Abs Immat Gran (auto) (0.00-0.03) X10*3/uL Absolute Neuts (auto) (2.0-8.3) x10*3/uL Absolute Nucleated RBC (0.0-0.012) X10*3/uL Nucleated RBC % (auto) (0.0-0.2) /100WBC Sodium (135-145) mmol/L Potassium (3.3-5.1) mmol/L Chloride (96-108) mmol/L Carbon Dioxide (22-29) mmol/L Anion Gap (12-20) BUN (9-16) mg/dL Creatinine (0.5-1.4) mg/dL Estim Creat Clear Calc Estimated GFR Random Glucose (60-115) mg/dL Calcium (8.4-10.2) mg/dL Magnesium (1.6-2.6) mg/dL Total Bilirubin (0.0-1.0) mg/dL Direct Bilirubin (0.0-0.5) mg/dL AST (5-31) U/L ALT (0-31) U/L Alkaline Phosphatase (39-117) U/L Troponin I High Sens 32.0 H 23.8 H (<3.5-17.0) ng/L Total Protein (6.5-8.0) g/dL Albumin (3.5-5.0) g/dL Ethyl Alcohol < 10 mg/dL COVID-19 ([facility]) (Negative) COVID-19 Clin Com ECG Data Attestation: I personally reviewed and interpreted this ECG as follows: Interpretation: Rate: 93 Rhythm: NSR [place]: normal Normal P waves. Normal EDWIN. Normal QRS complex. ST T wave : no AUDI, prolonged qTC: prolonged prior studies: no sig change or ischemia The study has been interpreted contemporaneously by me. . Discharge Plan Discharge Clinical Impression: Anxiety HTN (hypertension) Qualifiers: Hypertension type: unspecified Qualified Code(s): I10 - Essential (primary) hypertension Patient Disposition: Home, Self-Care Instructions: Hypertension (ED), Anxiety (ED) Additional Instructions: return to ED for any worsening symptoms or concerns stop taking amlodipine you cannot do cocaine and metoprolol at the same time please avoid Prescriptions: New metoprolol succinate 25 mg tablet extended release 24 hr 25 mg PO DAILY Qty: 30 RF: 0 chlordiazepoxide HCl 25 mg capsule 25 mg PO BID PRN (Reason: anxiety) Qty: 20 RF: 0 No Action (DME) ACL defiance brace See Rx Instructions .ROUTE .MEDSUPPLY Qty: 1 RF: 0 ergocalciferol (vitamin D2) 1,250 mcg (50,000 unit) capsule 1 cap PO TU@0900 RF: 0 albuterol sulfate 90 mcg/actuation HFA aerosol inhaler 2 puff inhalation Q4-6H PRN (Reason: shortness of breath or wheezing) Qty: 8.5 RF: 0 clonidine HCl 0.1 mg tablet 1 tab PO BEDTIME PRN (Reason: Anxiety) RF: 0 thiamine HCl (vitamin B1) 100 mg tablet 1 tab PO DAILY RF: 0 acetaminophen 500 mg tablet 1 tab PO Q6H PRN (Reason: Pain (Scale Score 1-3)) RF: 0 lidocaine 5 % adhesive patch,medicated 1 patch topical DAILY PRN (Reason: Pain (Scale Score 1-3)) RF: 0 magnesium oxide 500 mg tablet 1 tab PO DAILY RF: 0 omeprazole 20 mg capsule,delayed release(DR/EC) 1 cap PO DAILY@0630 RF: 0 folic acid 1 mg tablet 1 tab PO DAILY RF: 0 loratadine 10 mg tablet 1 tab PO DAILY RF: 0 magnesium oxide 400 mg (241.3 mg magnesium) Tablet 400 mg PO BIDPC 30 Days Qty: 60 RF: 0 Referrals: Shereen Latham MD [Primary Care Provider] - 2 days
--- NOTE | 2021-10-09 07:34 | ECG_ITS ---
Test Reason : chest pain Blood Pressure : / mmHG Vent. Rate : 093 BPM Atrial Rate : 093 BPM P-R Int : 178 ms QRS Dur : 084 ms QT Int : 374 ms P-R-T Axes : 068 016 065 degrees QTc Int : 465 ms Normal sinus rhythm Nonspecific T wave abnormality Prolonged QT Abnormal ECG When compared with ECG of 30-SEP-2021 16:21, No significant change was found Referred By: Chelle Ordonez Electronically Signed By:Jameson Jeffries
[2021-10-09 08:25] LABS: COVID-19 Test Negative (Negative); IDNOW Serial# 9DD0AD1C
[2021-10-09 08:28] LABS: MANUAL DIFF FLAG NO
[2021-10-09 08:29] LABS: Basophils Percent Auto 0.5 % (0-2); Eosinophils Absolute Auto 0.2 X10*3/uL (0.0-0.4); Hematocrit 36.2 % (37.0-47.0); Hemoglobin 12.3 g/dl (12.0-16.0); Imm Gran Abs Auto 0.02 X10*3/uL (0.00-0.03); Imm Gran Pct Auto 0.3 % (0.0-0.4); Lymphocytes Absolute Auto 1.8 X10*3/uL (1.2-4.9); Lymphocytes Percent Auto 23.3 % (20-40); Mean Corpuscular Hemoglobin 31.1 pg (27.0-33.0); Mean Corpuscular Volume 91.4 fL (80.0-98.0); Monocytes Absolute Auto 0.6 X10*3/uL (0.1-1.2); Monocytes Percent Auto 7.8 % (2-11); Neutrophils Percent Auto 66.1 % (45-73); Platelet Count 286 X10*3/uL (160-400); Red Blood Count 3.96 X10*6/uL (4.20-5.50); Red Cell Distribution Width 13.7 % (11.0-16.0); White Blood Count 7.6 X10*3/uL (4.8-10.8)
[2021-10-09 08:46] LABS: Alanine Aminotransferase 23 U/L (0-31); Albumin Level 3.8 g/dL (3.5-5.0); Alkaline Phosphatase 106 U/L (39-117); Anion Gap 13 (12-20); Aspartate Amino Transferase 19 U/L (5-31); Bilirubin Direct 0.2 mg/dL (0.0-0.5); Bilirubin Total 0.6 mg/dL (0.0-1.0); Blood Urea Nitrogen 13 mg/dL (9-16); Carbon Dioxide 26 mmol/L (22-29); Chloride 105 mmol/L (96-108); Creatinine Clr Calc Pharmacy 100.6; Estimated Glomerular Filt Rate > 60; Glucose Random 133 mg/dL (60-115); Magnesium 1.6 mg/dL (1.6-2.6); Potassium 3.4 mmol/L (3.3-5.1); Sodium 141 mmol/L (135-145); Total Protein 6.6 g/dL (6.5-8.0)
[2021-10-09 09:38] VITALS: BP 154/105; PULSE 92; RESP 15; TEMP 36.8; O2SAT 96
[2021-10-09 09:49] LABS: Ethanol < 10 mg/dL
[2021-10-09 09:53] LABS: Troponin-I High Sensitivity 23.8 ng/L (<3.5-17.0)
[2021-10-09] MEDS: 0.9 % Sodium Chloride 1,000 ML 999 ML IV (09:59)
[2021-10-09] MEDS: LORazepam 2 MG/ML VIAL 1 MG IVPUSH (09:59)
[2021-10-09 10:08] VITALS: BP 158/105; PULSE 100; RESP 17; O2SAT 97
[2021-10-09 11:13] VITALS: BP 155/92; PULSE 100; RESP 18; TEMP 36.8; O2SAT 99
[2021-10-09 11:15] VITALS: BP 155/92; PULSE 100
[2021-10-09] MEDS: Metoprolol Tartrate 25 MG TABLET PO (11:15)
--- NOTE | 2021-10-09 11:33 | PC.NURSE ---
lungs - all lobes cta, except rll which is diminished.
[2021-10-09 11:37] VITALS: BP 147/92; PULSE 101; RESP 16; O2SAT 99
== END 2021-10-09 11:43 | disposition home or self-care (01) ==
PROVIDERS: Emergency Provider Emergency Medicine; PCP Family Medicine
DX: I10 Essential (primary) hypertension (principal); F41.9 Anxiety disorder, unspecified; F10.10 Alcohol abuse, uncomplicated; J45.909 Unspecified asthma, uncomplicated; Z79.899 Other long term (current) drug therapy; Z20.822 Contact with and (suspected) exposure to COVID-19
CPT/HCPCS: 36415; 80048; 80076; 82077; 83735; 84484; 85025; 87635; 93005; 96361; 96374; 99284; J2060

== ENCOUNTER 2021-10-11 15:16 | Outpatient (REF) | payer MEDICAID, SELFPAY ==
--- NOTE | ~2021-10-11 | MM_ITS ---
EXAMINATION: MM SCREENING DIGITAL BREAST TOMOSYNTHESIS, LEFT CLINICAL INFORMATION: Right mastectomy 2008. Prior history left mastopexy. Due for yearly exam. COMPARISON: Mammography: 09/08/2019, 07/24/2017, 11/17/2014, 05/04/2014, 06/30/2013 TECHNIQUE: Digital breast tomosynthesis is performed in both the craniocaudal and mediolateral oblique views along with computer-aided detection (CAD). Synthesized 2D images are generated from the tomosynthesis. FINDINGS: There are scattered areas of fibroglandular density (ACR BI-RADS breast composition Category b). Parenchymal pattern is similar to prior studies. There is some minor stable scarring and benign round calcifications anterior breasts consistent with the prior mastopexy. There is no developing density or interval mass or interval architectural abnormality. No significant changes. MM/MM tomosynthesis screening LT IMPRESSION: No significant changes from prior exams. ASSESSMENT: BI-RADS 2: Benign RECOMMENDATION: Routine annual mammography screening. This patient's information was entered into a reminder system with a target due date for their next mammogram.
--- NOTE | ~2021-10-11 | XR_ITS ---
EXAMINATION: XR SHOULDER, RIGHT CLINICAL INFORMATION: Pain COMPARISON: None TECHNIQUE: AP external rotation, Grashey, scapular Y, and axillary views of the right shoulder. FINDINGS: There is sclerotic and irregular change at the insertion of the superior rotator cuff on the humerus. There is acromial spurring. Mild degeneration at the AC joint. Mild degeneration in the inferior glenohumeral articulation. There is no fracture or dislocation. XR/XR shoulder RT min 2V IMPRESSION: Degenerative changes and findings described above which may well preclude to impingement. If further evaluation is warranted consider MRI.
== END 2021-10-11 15:17 | disposition home or self-care (01) ==
LOC: HO.MAMMO 15:16
PROVIDERS: PCP Family Medicine; Visit Provider Family Medicine
DX: Z12.31 Encounter for screening mammogram for malignant neoplasm of breast (principal); M25.511 Pain in right shoulder
CPT/HCPCS: 73030; 77063; 77067

== ENCOUNTER 2021-10-12 07:02 | Emergency (ER) | payer MEDICAID, SELFPAY ==
[2021-10-12 07:10] VITALS: BP 172/123; PULSE 96; RESP 18; TEMP 36.7; O2SAT 99; BMI 28.5
--- NOTE | 2021-10-12 07:42 | ECG_ITS ---
Test Reason : HYPERTENSION Blood Pressure : / mmHG Vent. Rate : 091 BPM Atrial Rate : 091 BPM P-R Int : 176 ms QRS Dur : 082 ms QT Int : 378 ms P-R-T Axes : 061 022 066 degrees QTc Int : 464 ms Sinus rhythm with Premature atrial complexes Nonspecific T wave abnormality Abnormal ECG When compared with ECG of 09-OCT-2021 08:29, Premature atrial complexes are now Present Referred By: Chelle Ordonez Electronically Signed By:Jameson Jeffries
--- NOTE | 2021-10-12 08:06 | ED.GENADULT ---
HPI - General Adult General Chief complaint: General Medical Stated complaint: HBP Time Seen by Provider: 10/12/21 07:15 Source: patient Mode of arrival: ambulatory Limitations: no limitations History of Present Illness HPI narrative: 45 y/o female with history of HTN, alcohol abuse last drink 10/07, anxiety, HTN, GERD, breast cancer s/p right mastectomy presents to the ER with high blood pressure and generalized headache for several days. She reports taking her blood pressure several times at home and has been 180/120 range. This is before and after she takes her medication. She is currently on lisinopril 40 mg a day and Toprol XL 25 mg in the morning. This was just started in the emergency room 3 days ago. She has been compliant with his medications. She reports she also intermittently takes clonidine for anxiety and last took it last night. He does not take it regularly because she is doesnt like the way it makes her feel in the mornings. She denies any ongoing ETOH use. She denies any chest pain, vision changes. Her headache is intermittnet, dull generalized. She has no weakness, numbness, tingling or focal deficits. MD complaint: HTN Onset (ago): day(s) Location: head Radiation: non-radiation Severity: moderate Quality: aching Pain Consistency: intermittent Relieving factors: none Exacerbating factors: none Associated symptoms: denies other symptoms Treatments prior to arrival: none Related Data Home Medications Medication Instructions Recorded Confirmed lisinopril 30 mg tablet 30 mg PO DAILY 07/26/21 09/30/21 ergocalciferol (vitamin D2) 1,250 1 cap PO TU@0900 08/13/21 09/30/21 mcg (50,000 unit) capsule acetaminophen 500 mg tablet 1 tab PO Q6H PRN 09/30/21 09/30/21 clonidine HCl 0.1 mg tablet 1 tab PO BEDTIME PRN 09/30/21 09/30/21 folic acid 1 mg tablet 1 tab PO DAILY 09/30/21 09/30/21 lidocaine 5 % topical patch 1 patch TOPICAL DAILY PRN 09/30/21 09/30/21 loratadine 10 mg tablet 1 tab PO DAILY 09/30/21 09/30/21 magnesium oxide 500 mg tablet 1 tab PO DAILY 09/30/21 09/30/21 omeprazole 20 mg capsule,delayed 1 cap PO DAILY@0630 09/30/21 09/30/21 release thiamine HCl (vitamin B1) 100 mg 1 tab PO DAILY 09/30/21 09/30/21 tablet Previous Rx's Medication Instructions Recorded ACL defiance brace #1 ea 07/29/21 albuterol sulfate 90 mcg/actuation 2 puff INHALATION Q4-6H PRN #8.5 g 09/12/21 aerosol inhaler magnesium oxide 400 mg (241.3 mg 400 mg PO BIDPC 30 Days #60 tab 10/02/21 magnesium) tablet chlordiazepoxide HCl 25 mg capsule 25 mg PO BID PRN #20 cap 10/09/21 metoprolol succinate 25 mg 25 mg PO DAILY #30 tab 10/09/21 tablet,extended release 24 hr metoprolol succinate 50 mg 50 mg PO DAILY #30 tab 10/12/21 tablet,extended release 24 hr (Toprol XL) Allergies Allergy/AdvReac Type Severity Reaction Status Date / Time amoxicillin [AMOXICILLIN] Allergy Intermediate rash, Verified 09/12/21 11:11 rash/itching sulfamethoxazole Allergy Intermediate RASH Verified 09/12/21 11:11 [From BACTRIM] trimethoprim [From BACTRIM] Allergy Intermediate RASH Verified 09/12/21 11:11 hydrocodone [Hydrocodone] Allergy Mild ITCH Verified 09/12/21 11:11 ibuprofen [From Motrin] Allergy Mild UPSET Verified 09/12/21 11:11 STOMACH latex [Latex] Allergy Mild ITCH Verified 09/12/21 11:11 Sulfa (Sulfonamide Allergy Unknown rash/itchin Verified 09/12/21 11:11 Antibiotics) g amoxicillin Allergy Unknown Unknown Uncoded 08/13/21 15:24 bactrim Allergy Unknown Unknown Uncoded 08/13/21 15:24 hydrocodone Allergy Unknown Unknown Uncoded 08/13/21 15:24 Hydrocodone-Ibuprofen Allergy Unknown rash/itchin Uncoded 08/13/21 15:24 g Latex Allergy Unknown Unknown Uncoded 08/13/21 15:24 latex Allergy Unknown Unknown Uncoded 08/13/21 15:24 motrin Allergy Unknown Unknown Uncoded 08/13/21 15:24 Review of Systems Review of Systems: Constitutional: No Fever, No Chills ENT/Mouth: No sore throat, No Rhinorrhea, No Swallowing Difficulty Eyes: No vision changes Cardiovascular: No Chest Pain, No SOB, No Orthopnea, No Edema Respiratory: No Cough, No Sputum, No Wheezing, No dyspnea Gastrointestinal: No Nausea, No Vomiting, No Diarrhea, No abdominal Pain Genitourinary: No Dysuria, No Urinary Frequency, No Hematuria Musculoskeletal: No joint pain, No Myalgias Skin: No Skin Lesions, No rash Neuro: No Weakness, No Numbness, No Dizziness, + Headache Psych: + Anxiety/Panic, No Depression Heme/Lymph: No Bruising, No Lymphadenopathy Endocrine: No Polyuria, No Polydipsia ON LICENSE OF [facility] Past Medical History Medical History Anxiety Breast cancer H/O ETOH abuse History of low potassium Hypertension Panic attack Surgical History H/O: hysterectomy Family History Family History (Updated 10/01/21 @ 05:43 by Florence Early MD) Mother Heart disease Alzheimers disease Social History Social History Household Members: Children Housing: House Do you presently have visiting nurse or other home services: No Alcohol intake: former Patient Tobacco Use Status: Current everyday Tobacco user Tobacco use type: Cigarette Use of substances other than those prescribed or required for medical reasons: No Advance Directives: Yes Advance Directives on File: Yes Advance Directives Date on File: 10/01/21 service: No Current occupational status: unemployed Physical Exam Vital Signs: Vital Signs: Last Vital Signs Temp 98.8 F 10/12/21 08:59 Pulse 90 10/12/21 09:48 Resp 18 10/12/21 09:48 BP 160/107 H 10/12/21 09:48 Pulse Ox 99 10/12/21 09:48 BMI result Body Mass Index 28.5 Appearance: Alert. Oriented X3. No acute distress. Eyes: Pupils equal, round and reactive to light. ENT: Pharynx normal. Neck: Normal inspection. Neck supple. CVS: Normal heart rate and rhythm. Pulses normal. Respiratory: No respiratory distress. Breath sounds normal. Abdomen: Soft and nontender. +BS x4 Skin: Skin warm and dry. Normal skin color. Normal skin turgor. No rashes. Extremities: No lower extremity edema. Neuro: Oriented X 3. No motor deficit. No sensory deficit. Course Course Course Narrative: 45 y/o female with history of HTN on Toprol and Lisinopril presenting with high BP and headaches. BP on arrival 172/123 - she took her meds this morning. On review of her prior meds she was previously on metoprolol 50 bid. Will plan to increase her Toprol to 100 mg and see response. No need for head CT at this time. Reevaluation(s) Reevaluation #1: BP without additional Toprol improved to 146/99. She still complains of moderate throbbing headache and is anxious about her BP. Will treat headache and reassess. Reevaluation #2: BP remains stable 150-160 systolic. No need for additional antihypertensives at this time. Will plan to increase her Toprol XL to 50 mg per day starting tomorrow and have her follow up with her PCP this week for additional med adjustment as needed. Patient agrees with plan. Medical Decision Making Lab Data Labs: Lab Results 10/12/21 Range/Units 09:08 COVID-19 ([facility]) Negative (Negative) COVID-19 Clin Com See Note ECG Data Attestation: I personally reviewed and interpreted this ECG as follows: Prior ECG tracings: available for review Interpretation: normal sinus rhythm, HR 91 bpm, normal [place] interval, nonspecific T wave abnormality, No ST segment elevations or depressions Critical Care Time Critical Care Time Critical Care Time: No Discharge Plan Discharge Clinical Impression: Hypertension Qualifiers: Hypertension type: primary hypertension Qualified Code(s): I10 - Essential (primary) hypertension Patient Disposition: Home, Self-Care Instructions: DASH Eating Plan (ED), Hypertension (ED) Additional Instructions: Will plan to increase your metoprolol XL to 50 mg once a day. Monitor your blood pressure at home after you take your medications and keep a record for your primary care doctor. Follow-up with your primary care doctor next week for possible additional medication adjustments. Recommend decreasing her salt intake. Follow-up with your blood pressure. Recommend stopping clonidine altogether as taking this intermittently can cause rebound hypertension. Prescriptions: New metoprolol succinate [Toprol XL] 50 mg tablet extended release 24 hr 50 mg PO DAILY Qty: 30 RF: 0 No Action (DME) ACL defiance brace See Rx Instructions .ROUTE .MEDSUPPLY Qty: 1 RF: 0 ergocalciferol (vitamin D2) 1,250 mcg (50,000 unit) capsule 1 cap PO TU@0900 RF: 0 albuterol sulfate 90 mcg/actuation HFA aerosol inhaler 2 puff inhalation Q4-6H PRN (Reason: shortness of breath or wheezing) Qty: 8.5 RF: 0 clonidine HCl 0.1 mg tablet 1 tab PO BEDTIME PRN (Reason: Anxiety) RF: 0 thiamine HCl (vitamin B1) 100 mg tablet 1 tab PO DAILY RF: 0 acetaminophen 500 mg tablet 1 tab PO Q6H PRN (Reason: Pain (Scale Score 1-3)) RF: 0 lidocaine 5 % adhesive patch,medicated 1 patch topical DAILY PRN (Reason: Pain (Scale Score 1-3)) RF: 0 magnesium oxide 500 mg tablet 1 tab PO DAILY RF: 0 omeprazole 20 mg capsule,delayed release(DR/EC) 1 cap PO DAILY@0630 RF: 0 folic acid 1 mg tablet 1 tab PO DAILY RF: 0 loratadine 10 mg tablet 1 tab PO DAILY RF: 0 magnesium oxide 400 mg (241.3 mg magnesium) Tablet 400 mg PO BIDPC 30 Days Qty: 60 RF: 0 metoprolol succinate 25 mg tablet extended release 24 hr 25 mg PO DAILY Qty: 30 RF: 0 chlordiazepoxide HCl 25 mg capsule 25 mg PO BID PRN (Reason: anxiety) Qty: 20 RF: 0 Referrals: Shereen Latham MD [Primary Care Provider] - 1 week (f/u HTN)
[2021-10-12 08:59] VITALS: BP 146/99; PULSE 96; RESP 18; TEMP 37.1; O2SAT 99
[2021-10-12 09:38] LABS: COVID-19 Test Negative (Negative); IDNOW Serial# 9DD0AD1C
[2021-10-12] MEDS: Ketorolac Tromethamine 30 MG/ML VIAL IM (09:47)
[2021-10-12 09:48] VITALS: BP 160/107; PULSE 90; RESP 18; O2SAT 99
[2021-10-12 10:53] VITALS: BP 153/107; PULSE 94; RESP 16; O2SAT 97
--- NOTE | 2021-10-12 10:59 | PC.NURSE ---
This RN working as float nurse. Patient remains hypertensive. Concetta AARON made aware. Plan is for patient to go home and take 25mg of her Metoprolol. Dose increased to 50mg going forward. patient verbalizes understanding of plan.
== END 2021-10-12 11:02 | disposition home or self-care (01) ==
PROVIDERS: Physician Assistant; Emergency Provider Emergency Medicine; PCP Family Medicine
DX: I10 Essential (primary) hypertension (principal); Z20.822 Contact with and (suspected) exposure to COVID-19; R51.9 Headache, unspecified; Z85.3 Personal history of malignant neoplasm of breast; Z79.899 Other long term (current) drug therapy; F17.200 Nicotine dependence, unspecified, uncomplicated
CPT/HCPCS: 36415; 87635; 93005; 96372; 99284; J1885

== ENCOUNTER 2021-10-14 05:06 | Emergency (ER) | payer MEDICAID, SELFPAY ==
--- NOTE | ~2021-10-14 | XR_ITS ---
EXAMINATION: XR CHEST CLINICAL INFORMATION: Chest pain COMPARISON: 09/30/2021 TECHNIQUE: Frontal view of the chest was obtained. FINDINGS: Lung volumes are symmetric. Mild haziness at the lung bases is suspected to be due to overlying soft tissue shadow. No definite consolidation is seen. No evidence of pneumothorax, pleural effusion, or pulmonary edema. The cardiomediastinal contour is unremarkable. No acute osseous findings are seen. XR/XR chest 1V IMPRESSION: No definite acute findings. Mild bibasilar haziness is suspected to be due to overlying soft tissue shadow.
[2021-10-14 05:08] VITALS: BMI 28.5
[2021-10-14 05:14] VITALS: BP 187/126; PULSE 117; RESP 22; TEMP 36.6; O2SAT 96
--- NOTE | 2021-10-14 05:15 | ECG_ITS ---
Test Reason : CHEST PAIN Blood Pressure : / mmHG Vent. Rate : 107 BPM Atrial Rate : 107 BPM P-R Int : 174 ms QRS Dur : 080 ms QT Int : 360 ms P-R-T Axes : 064 044 071 degrees QTc Int : 480 ms Sinus tachycardia Nonspecific T wave abnormality Abnormal ECG When compared with ECG of 12-OCT-2021 07:57, Premature atrial complexes are no longer Present Nonspecific T wave abnormality now evident in Anterior leads Referred By: Generic ED Physician Electronically Signed By:KENNEDI BOURGEOIS MD
--- NOTE | 2021-10-14 05:27 | ED.CHESTPAIN ---
HPI - Chest Pain General Chief Complaint: Chest Pain Stated Complaint: hypertension/sob/cp Time Seen by Provider: 10/14/21 05:27 Source: patient Mode of arrival: EMS History of Present Illness HPI narrative: 45-year-old female with longstanding hypertension presents with complaints of being awoken at night with shortness of breath and noting that her blood pressure is incredibly elevated. This is not been associated with any fever, chills, but patient has had vague chest pain that is nonradiating. Patient is currently on lisinopril 40 mg, spironolactone, and Lopressor 50 mg. Patient states that she has not had an alcoholic drink since 2 days prior to her last admission. Related Data Home Medications Medication Instructions Recorded Confirmed lisinopril 30 mg tablet 30 mg PO DAILY 07/26/21 09/30/21 ergocalciferol (vitamin D2) 1,250 1 cap PO TU@0900 08/13/21 09/30/21 mcg (50,000 unit) capsule acetaminophen 500 mg tablet 1 tab PO Q6H PRN 09/30/21 09/30/21 clonidine HCl 0.1 mg tablet 1 tab PO BEDTIME PRN 09/30/21 09/30/21 folic acid 1 mg tablet 1 tab PO DAILY 09/30/21 09/30/21 lidocaine 5 % topical patch 1 patch TOPICAL DAILY PRN 09/30/21 09/30/21 loratadine 10 mg tablet 1 tab PO DAILY 09/30/21 09/30/21 magnesium oxide 500 mg tablet 1 tab PO DAILY 09/30/21 09/30/21 omeprazole 20 mg capsule,delayed 1 cap PO DAILY@0630 09/30/21 09/30/21 release thiamine HCl (vitamin B1) 100 mg 1 tab PO DAILY 09/30/21 09/30/21 tablet Previous Rx's Medication Instructions Recorded ACL defiance brace #1 ea 07/29/21 albuterol sulfate 90 mcg/actuation 2 puff INHALATION Q4-6H PRN #8.5 g 09/12/21 aerosol inhaler magnesium oxide 400 mg (241.3 mg 400 mg PO BIDPC 30 Days #60 tab 10/02/21 magnesium) tablet chlordiazepoxide HCl 25 mg capsule 25 mg PO BID PRN #20 cap 10/09/21 metoprolol succinate 25 mg 25 mg PO DAILY #30 tab 10/09/21 tablet,extended release 24 hr metoprolol succinate 50 mg 50 mg PO DAILY #30 tab 10/12/21 tablet,extended release 24 hr (Toprol XL) Allergies Allergy/AdvReac Type Severity Reaction Status Date / Time amoxicillin [AMOXICILLIN] Allergy Intermediate rash, Verified 09/12/21 11:11 rash/itching sulfamethoxazole Allergy Intermediate RASH Verified 09/12/21 11:11 [From BACTRIM] trimethoprim [From BACTRIM] Allergy Intermediate RASH Verified 09/12/21 11:11 hydrocodone [Hydrocodone] Allergy Mild ITCH Verified 09/12/21 11:11 ibuprofen [From Motrin] Allergy Mild UPSET Verified 09/12/21 11:11 STOMACH latex [Latex] Allergy Mild ITCH Verified 09/12/21 11:11 Sulfa (Sulfonamide Allergy Unknown rash/itchin Verified 09/12/21 11:11 Antibiotics) g amoxicillin Allergy Unknown Unknown Uncoded 08/13/21 15:24 bactrim Allergy Unknown Unknown Uncoded 08/13/21 15:24 hydrocodone Allergy Unknown Unknown Uncoded 08/13/21 15:24 Hydrocodone-Ibuprofen Allergy Unknown rash/itchin Uncoded 08/13/21 15:24 g Latex Allergy Unknown Unknown Uncoded 08/13/21 15:24 latex Allergy Unknown Unknown Uncoded 08/13/21 15:24 motrin Allergy Unknown Unknown Uncoded 08/13/21 15:24 Review of Systems Review of Systems: VITAL SIGNS: Reviewed. GENERAL: Well developed, well nourished, in no acute distress. HEAD: Normocephalic/atraumatic EYES: PERRLA, EOMI LUNGS: Normal breath sounds. No adventitious sounds or accessory muscle use. SpO2<96> CARDIOVASCULAR: Regular rate and rhythm without noted murmurs, no JVD or lower extremity edema. ABDOMEN: Soft, non-tender, non-distended with bowel sounds. NEUROLOGIC: Alert and oriented x 4. Strength and sensation to light touch were grossly intact x 4, otherwise nonfocal PMFSH Past Medical History Medical History Anxiety Breast cancer H/O ETOH abuse History of low potassium Hypertension Panic attack Surgical History H/O: hysterectomy Family History Family History (Updated 10/01/21 @ 05:43 by Florence Early MD) Mother Heart disease Alzheimers disease Social History Social History Household Members: Children Housing: House Do you presently have visiting nurse or other home services: No Alcohol intake: unknown Patient Tobacco Use Status: Current everyday Tobacco user Tobacco use type: Cigarette Use of substances other than those prescribed or required for medical reasons: Unknown Advance Directives: Yes Advance Directives on File: Yes Advance Directives Date on File: 10/01/21 service: No Current occupational status: unemployed Physical Exam Vital Signs: Vital Signs: Last Vital Signs Temp 97.8 F 10/14/21 05:14 Pulse 117 H 10/14/21 05:14 Resp 22 H 10/14/21 05:14 BP 157/110 H 10/14/21 06:04 Pulse Ox 96 10/14/21 05:14 BMI result Body Mass Index 28.5 Course Course Course Narrative: 45-year-old female with history and clinical presentation suggestive of possible hypertension induced mild pulmonary edema given patient's reported blood pressures at home in conjunction with her shortness of breath. Clinically patient appears to have easy breathing during her interview, oxygenating well on room air and otherwise no evidence to suggest fluid overload at this time. Review of all investigations otherwise negative, will repeat troponin and then discharged patient home with recommendation for follow-up with her primary care provider. Signed out to Dr Bustamante. MDM - Chest Pain Lab Data Result diagrams: 10/14/21 05:23 10/14/21 05:23 Labs: Lab Results 10/14/21 10/14/21 10/14/21 Range/Units 05:23 05:23 05:23 WBC 12.8 H (4.8-10.8) X10*3/uL RBC 3.92 L (4.20-5.50) X10*6/uL Hgb 12.1 (12.0-16.0) g/dl Hct 36.6 L (37.0-47.0) % MCV 93.4 (80.0-98.0) fL MCH 30.9 (27.0-33.0) pg MCHC 33.1 (31.0-35.0) g/dl RDW 13.9 (11.0-16.0) % Plt Count 359 D (160-400) X10*3/uL MPV 10.1 (9.4-12.3) fL Immature Gran % (Auto) 0.5 H (0.0-0.4) % Neut % (Auto) 73.1 H (45-73) % Lymph % (Auto) 19.7 L (20-40) % Bay % (Auto) 4.4 (2-11) % Eos % (Auto) 1.8 (0-4) % Baso % (Auto) 0.5 (0-2) % Lymph # (Auto) 2.5 (1.2-4.9) X10*3/uL Bay # (Auto) 0.6 (0.1-1.2) X10*3/uL Eos # (Auto) 0.2 (0.0-0.4) X10*3/uL Baso # (Auto) 0.1 (0.0-0.2) X10*3/uL Abs Immat Gran (auto) 0.07 H (0.00-0.03) X10*3/uL Absolute Neuts (auto) 9.3 H (2.0-8.3) x10*3/uL Absolute Nucleated RBC 0.000 (0.0-0.012) X10*3/uL Nucleated RBC % (auto) 0.0 (0.0-0.2) /100WBC Sodium 140 (135-145) mmol/L Potassium 4.2 D (3.3-5.1) mmol/L Chloride 105 (96-108) mmol/L Carbon Dioxide 24 (22-29) mmol/L Anion Gap 15 (12-20) BUN 15 (9-16) mg/dL Creatinine 0.77 (0.5-1.4) mg/dL Estim Creat Clear Calc 99.7 Estimated GFR > 60 Random Glucose 114 (60-115) mg/dL Calcium 9.8 D (8.4-10.2) mg/dL Magnesium 1.6 (1.6-2.6) mg/dL Total Bilirubin 0.2 (0.0-1.0) mg/dL Direct Bilirubin < 0.2 (0.0-0.5) mg/dL AST 16 (5-31) U/L ALT 18 (0-31) U/L Alkaline Phosphatase 99 (39-117) U/L Troponin I High Sens 31.5 H (<3.5-17.0) ng/L Total Protein 6.9 (6.5-8.0) g/dL Albumin 4.0 (3.5-5.0) g/dL Lipase 46 (8-78) U/L Beta HCG, Quant < 2 mIU/mL Urine Color Urine Appearance Urine pH (5.0-8.0) Ur Specific [place] (1.005-1.025) Urine Protein (NEG-TRACE) MG/DL Urine Glucose (UA) (NEG) MG/DL Urine Ketones (NEG) MG/DL Urine Blood (NEG) Urine Nitrite (NEG) Ur Leukocyte Esterase (NEG) Ethyl Alcohol mg/dL Influenza Type A (PCR) (Negative) Influenza Type B (PCR) (Negative) RSV RNA Qual (PCR) (Negative) SARS-CoV-2 RNA (RT-PCR) (Negative) 10/14/21 10/14/21 10/14/21 Range/Units 05:23 05:32 06:07 WBC (4.8-10.8) X10*3/uL RBC (4.20-5.50) X10*6/uL Hgb (12.0-16.0) g/dl Hct (37.0-47.0) % MCV (80.0-98.0) fL MCH (27.0-33.0) pg MCHC (31.0-35.0) g/dl RDW (11.0-16.0) % Plt Count (160-400) X10*3/uL MPV (9.4-12.3) fL Immature Gran % (Auto) (0.0-0.4) % Neut % (Auto) (45-73) % Lymph % (Auto) (20-40) % Bay % (Auto) (2-11) % Eos % (Auto) (0-4) % Baso % (Auto) (0-2) % Lymph # (Auto) (1.2-4.9) X10*3/uL [place] # (Auto) (0.1-1.2) X10*3/uL Eos # (Auto) (0.0-0.4) X10*3/uL Baso # (Auto) (0.0-0.2) X10*3/uL Abs Immat Gran (auto) (0.00-0.03) X10*3/uL Absolute Neuts (auto) (2.0-8.3) x10*3/uL Absolute Nucleated RBC (0.0-0.012) X10*3/uL Nucleated RBC % (auto) (0.0-0.2) /100WBC Sodium (135-145) mmol/L Potassium (3.3-5.1) mmol/L Chloride (96-108) mmol/L Carbon Dioxide (22-29) mmol/L Anion Gap (12-20) BUN (9-16) mg/dL Creatinine (0.5-1.4) mg/dL Estim Creat Clear Calc Estimated GFR Random Glucose (60-115) mg/dL Calcium (8.4-10.2) mg/dL Magnesium (1.6-2.6) mg/dL Total Bilirubin (0.0-1.0) mg/dL Direct Bilirubin (0.0-0.5) mg/dL AST (5-31) U/L ALT (0-31) U/L Alkaline Phosphatase (39-117) U/L Troponin I High Sens (<3.5-17.0) ng/L Total Protein (6.5-8.0) g/dL Albumin (3.5-5.0) g/dL Lipase (8-78) U/L Beta HCG, Quant mIU/mL Urine Color COLORLESS Urine Appearance CLEAR Urine pH 6.0 (5.0-8.0) Ur Specific [place] <= 1.005 (1.005-1.025) Urine Protein NEG (NEG-TRACE) MG/DL Urine Glucose (UA) NEG (NEG) MG/DL Urine Ketones NEG (NEG) MG/DL Urine Blood NEG (NEG) Urine Nitrite NEG (NEG) Ur Leukocyte Esterase NEG (NEG) Ethyl Alcohol < 10 mg/dL Influenza Type A (PCR) NEGATIVE (Negative) Influenza Type B (PCR) NEGATIVE (Negative) RSV RNA Qual (PCR) NEGATIVE (Negative) SARS-CoV-2 RNA (RT-PCR) NEGATIVE (Negative) ECG Data ECG #1: Attestation: I personally reviewed and interpreted this ECG as follows: Prior ECG tracings: available for review (10/12/2021) Interpretation: Sinus tachycardia, HR-107, no STEMI, IN/QRS/QTC are within normal limits. Discharge Plan Discharge Clinical Impression: Chest pain, Hypertension Patient Disposition: Home, Self-Care Instructions: Chest Pain (ED), DASH Eating Plan (ED), Hypertension (ED) Additional Instructions: 1. Resume all home medications as prescribed. 2. Call your primary care provider today to get an appointment for re-evaluation and close follow-up for your blood pressure. Return to the ER for acute worsening symptoms. Prescriptions: No Action (DME) ACL defiance brace See Rx Instructions .ROUTE .MEDSUPPLY Qty: 1 RF: 0 ergocalciferol (vitamin D2) 1,250 mcg (50,000 unit) capsule 1 cap PO TU@0900 RF: 0 albuterol sulfate 90 mcg/actuation HFA aerosol inhaler 2 puff inhalation Q4-6H PRN (Reason: shortness of breath or wheezing) Qty: 8.5 RF: 0 clonidine HCl 0.1 mg tablet 1 tab PO BEDTIME PRN (Reason: Anxiety) RF: 0 thiamine HCl (vitamin B1) 100 mg tablet 1 tab PO DAILY RF: 0 acetaminophen 500 mg tablet 1 tab PO Q6H PRN (Reason: Pain (Scale Score 1-3)) RF: 0 lidocaine 5 % adhesive patch,medicated 1 patch topical DAILY PRN (Reason: Pain (Scale Score 1-3)) RF: 0 magnesium oxide 500 mg tablet 1 tab PO DAILY RF: 0 omeprazole 20 mg capsule,delayed release(DR/EC) 1 cap PO DAILY@0630 RF: 0 folic acid 1 mg tablet 1 tab PO DAILY RF: 0 loratadine 10 mg tablet 1 tab PO DAILY RF: 0 magnesium oxide 400 mg (241.3 mg magnesium) Tablet 400 mg PO BIDPC 30 Days Qty: 60 RF: 0 metoprolol succinate 25 mg tablet extended release 24 hr 25 mg PO DAILY Qty: 30 RF: 0 chlordiazepoxide HCl 25 mg capsule 25 mg PO BID PRN (Reason: anxiety) Qty: 20 RF: 0 metoprolol succinate [Toprol XL] 50 mg tablet extended release 24 hr 50 mg PO DAILY Qty: 30 RF: 0
[2021-10-14 05:28] LABS: Basophils Absolute Auto 0.1 X10*3/uL (0.0-0.2); Basophils Percent Auto 0.5 % (0-2); Eosinophils Absolute Auto 0.2 X10*3/uL (0.0-0.4); Eosinophils Percent Auto 1.8 % (0-4); Hematocrit 36.6 % (37.0-47.0); Hemoglobin 12.1 g/dl (12.0-16.0); Imm Gran Abs Auto 0.07 X10*3/uL (0.00-0.03); Imm Gran Pct Auto 0.5 % (0.0-0.4); Lymphocytes Absolute Auto 2.5 X10*3/uL (1.2-4.9); Lymphocytes Percent Auto 19.7 % (20-40); MANUAL DIFF FLAG NO; Mean Corpuscular HGB Conc 33.1 g/dl (31.0-35.0); Mean Corpuscular Hemoglobin 30.9 pg (27.0-33.0); Mean Corpuscular Volume 93.4 fL (80.0-98.0); Mean Platelet Volume 10.1 fL (9.4-12.3); Monocytes Absolute Auto 0.6 X10*3/uL (0.1-1.2); Monocytes Percent Auto 4.4 % (2-11); Neutrophils Absolute Auto 9.3 x10*3/uL (2.0-8.3); Neutrophils Percent Auto 73.1 % (45-73); Platelet Count 359 X10*3/uL (160-400); Red Blood Count 3.92 X10*6/uL (4.20-5.50); Red Cell Distribution Width 13.9 % (11.0-16.0); White Blood Count 12.8 X10*3/uL (4.8-10.8)
[2021-10-14 05:52] LABS: Ethanol < 10 mg/dL
[2021-10-14 05:56] LABS: Troponin-I High Sensitivity 31.5 ng/L (<3.5-17.0)
[2021-10-14 06:00] VITALS: PULSE 106
[2021-10-14 06:02] LABS: Alanine Aminotransferase 18 U/L (0-31); Alkaline Phosphatase 99 U/L (39-117); Anion Gap 15 (12-20); Aspartate Amino Transferase 16 U/L (5-31); Bilirubin Direct < 0.2 mg/dL (0.0-0.5); Bilirubin Total 0.2 mg/dL (0.0-1.0); Blood Urea Nitrogen 15 mg/dL (9-16); Calcium 9.8 mg/dL (8.4-10.2); Carbon Dioxide 24 mmol/L (22-29); Chloride 105 mmol/L (96-108); Creatinine Clr Calc Pharmacy 99.7; Estimated Glomerular Filt Rate > 60; Glucose Random 114 mg/dL (60-115); Lipase 46 U/L (8-78); Magnesium 1.6 mg/dL (1.6-2.6); Potassium 4.2 mmol/L (3.3-5.1); Sodium 140 mmol/L (135-145); Total Protein 6.9 g/dL (6.5-8.0)
[2021-10-14 06:04] VITALS: BP 157/110
[2021-10-14 06:17] LABS: Influenza A PCR NEGATIVE (Negative); Influenza B PCR NEGATIVE (Negative); Resp Syncy Virus RNA Qual PCR NEGATIVE (Negative); SARS COV2 PCR INHOUSE NEGATIVE (Negative)
[2021-10-14 06:21] LABS: Appearance Urine CLEAR; Glucose Urine UA NEG (NEG); Leukocyte Esterase Urine NEG (NEG); Nitrite Urine NEG (NEG); Specific Gravity - Urine <= 1.005 (1.005-1.025); Urine Blood NEG (NEG); Urine Ketones NEG (NEG); Urine Protein NEG (NEG-TRACE)
[2021-10-14 06:25] LABS: Color Urine COLORLESS; UACC Culture Trigger NO
[2021-10-14 06:26] LABS: HCG Quantitative < 2 mIU/mL
[2021-10-14 07:12] VITALS: BP 178/122; PULSE 102
[2021-10-14 07:15] VITALS: BP 178/122; PULSE 102
[2021-10-14] MEDS: Metoprolol Tartrate 25 MG TABLET PO (07:15)
[2021-10-14 07:16] VITALS: BP 178/122
[2021-10-14] MEDS: hydrALAZINE HCl 10 MG TABLET PO (07:16)
[2021-10-14 08:55] LABS: Troponin-I High Sensitivity 39.6 ng/L (<3.5-17.0)
== END 2021-10-14 09:43 | disposition home or self-care (01) ==
PROVIDERS: Student in an Organized Health Care Education/Training Program; Emergency Provider Emergency Medicine
DX: R07.9 Chest pain, unspecified (principal); I10 Essential (primary) hypertension; Z79.899 Other long term (current) drug therapy; Z20.822 Contact with and (suspected) exposure to COVID-19
CPT/HCPCS: 0241U; 36415; 71045; 80048; 80076; 81003; 82077; 83690; 83735; 84484; 84702; 85025; 93005; 99284; 99285

== ENCOUNTER 2021-10-15 12:59 | Outpatient (REF) | payer MEDICAID, SELFPAY ==
[2021-10-20 17:55] LABS: Cortisol, Free 0.26 mcg/dL
[2021-10-21 11:21] LABS: Metanephrine, Free <25 pg/mL (<=57); Normetanephrines, Free 47 pg/mL (<=148); Total Metanephrine, Free 47 pg/mL (<=205)
[2021-10-25 16:45] LABS: Aldosterone/Renin Ratio 72.7 Ratio (0.9-28.9); Plasma Renin Activity 0.11 ng/mL/h (0.25-5.82)
== END 2021-10-15 13:00 | disposition home or self-care (01) ==
LOC: HO.LAB 12:59
PROVIDERS: PCP Family Medicine; Referring Provider Family Medicine; Visit Provider Internal Medicine Cardiovascular Disease
DX: R07.9 Chest pain, unspecified (principal); I10 Essential (primary) hypertension
CPT/HCPCS: 36415; 82088; 82530; 83835; 99202

== ENCOUNTER → 2021-10-18 07:46 | Outpatient (REF) | payer MEDICAID, SELFPAY ==
--- NOTE | ~2021-10-18 | US_ITS ---
EXAMINATION: ULTRASOUND OF KIDNEYS WITH RENAL ARTERY DOPPLER CLINICAL INFORMATION: Hypertension. COMPARISON: None. TECHNIQUE: Ultrasound of the kidneys was performed along with color flow Doppler imaging and velocity measurements in the proximal mid and distal renal arteries. Aortic velocities were measured and renal/aortic ratios were calculated. FINDINGS: The kidneys appeared normal with the right kidney measuring 12.9 cm and the left kidney measuring 12.3 cm. There is a 4 mm parenchymal/vascular calcification in the midpole. No renal masses, renal stones or hydronephrosis is seen. Renal cortical thickness appears normal. Velocity measurements in the proximal mid and distal renal arteries are normal. Velocity in the aorta is normal and, therefore, the renal aortic ratios are normal.. The bladder appeared unremarkable. US/US renal doppler IMPRESSION: No evidence to suggest renal artery stenosis.
--- NOTE | ~2021-10-18 | NM_ITS ---
Lexiscan Myocardial perfusion study Indication: Chest pain, assess for coronary disease and ischemia Technique: The patient was brought in for a Lexiscan perfusion study on 10/18/2021 and was injected 0.4 mg of Lexiscan intravenously. Within a minute of this injection 30 mCi of sestamibi was given intravenously. Images were obtained using the SPECT gamma camera interlaced with the gating device. Images were obtained in supine position. Resting study was not completed as the patient did not return. Images were processed with the software and compared side to side in short axis, horizontal long axis and vertical long axis views. Findings: Raw acquisition was reviewed. The stress perfusion study showed mildly diminished tracer uptake in the basal to mid lateral wall. There is improvement with CT attenuation correction and hence could be from soft tissue attenuation artifact. The gated study shows normal LV systolic function with calculated LVEF of 34%. LV cavity is normal in size. Globally reduced contractility, more so in the lateral wall. Resting study not completed as the patient did not return. The findings are consistent with basal to mid lateral perfusion defect, possibly from soft tissue attenuation. NM/NM winsome perf SPECT rest & str Impression: 1. Myocardial perfusion imaging study is incomplete. Based on stress perfusion only, basal to mid lateral defect, possibly from soft tissue attenuation. 2. Gated LVEF is 34% during stress. 3. Patient did not return for resting imaging in spite of numerous calls over 1.5 months. EKG component of the test reported separately.
--- NOTE | ~2021-10-18 | US_ITS ---
EXAMINATION: ULTRASOUND OF KIDNEYS WITH RENAL ARTERY DOPPLER CLINICAL INFORMATION: Hypertension. COMPARISON: None. TECHNIQUE: Ultrasound of the kidneys was performed along with color flow Doppler imaging and velocity measurements in the proximal mid and distal renal arteries. Aortic velocities were measured and renal/aortic ratios were calculated. FINDINGS: The kidneys appeared normal with the right kidney measuring 12.9 cm and the left kidney measuring 12.3 cm. There is a 4 mm parenchymal/vascular calcification in the midpole. No renal masses, renal stones or hydronephrosis is seen. Renal cortical thickness appears normal. Velocity measurements in the proximal mid and distal renal arteries are normal. Velocity in the aorta is normal and, therefore, the renal aortic ratios are normal.. The bladder appeared unremarkable. US/US renal BI IMPRESSION: No evidence to suggest renal artery stenosis.
--- NOTE | 2021-10-18 07:50 | CA_ITS ---
Acquisition Time: 2021-10-18 09:38:05 Total Exercise Time: 00:02:00 Test Indications: Chest Pain HTN Medications: SEE H Protocol: LEXISCAN Max HR: 115 BPM 66% of Pred: 173 BPM Max BP: 152/106 mmHG Max Work Load: 1.0 METS Pharmacological stress test with Lexiscan injection, while sitting and kicking her legs, without anginal symptoms, with isolated PVC, with normotensive response to injection, with nondiagnostic EKG for ischemia. Nuclear images pending. Test reviewed with Dr Turner. Referred By: Kilo Turner Overread By: TRINIDAD PÉREZ
--- NOTE | 2021-10-18 07:50 | CA_ITS ---
Transthoracic Echocardiogram Patient (Last, First, Middle): Azra Cast, Gender: Female Date of : 1975 Age: 45 Procedure Date: 10/18/2021 Procedure Type: Transthoracic Echocardiogram Location: OP Height: 170.18 cm Weight: 82.56 kg BSA: 1.94 m2 Heart Rate: bpm BP: 122 / 68 mmHg Teacher Vocal: Referring MD: Kilo Turner MD Cook Dinner: Kilo Turner MD Symptoms: I10 - Essential (primary) hypertension Study Quality: Good ECG Rhythm: Sinus Conclusions: - 1. Moderate to severe LV systolic dysfunction with mild LVH with impaired relaxation filling pattern 2. Moderate left atrial enlargement 3. Normal cardiac valvular Doppler 4. normal RV systolic pressure 5. Small circumferential pericardial effusion without tamponade Findings Left Ventricle Normal left ventricular cavity size. There is mildly increased left ventricular wall thickness. The left ventricular systolic function is moderately decreased. The visually estimated ejection fraction is between 30 35%. Spectral Doppler is indicative of an impaired relaxation filling pattern. E/E prime ratio is between 8 and 15 consistent with indeterminate filling pressures. Wall Motion Rest Echo Findings The basal inferior and mid inferior segments are akinetic. Right Ventricle Normal right ventricular cavity size and systolic function. Atria The left atrium is moderately dilated. Interatrial shunt cannot be excluded. The right atrium is likely dilated. Aortic Valve Normal aortic valve structure and function. There is no aortic valve stenosis. There is no aortic valve regurgitation. Mitral Valve Normal mitral valve structure and function. There is trace mitral valve regurgitation. There is no mitral valve stenosis. Pulmonic Valve The pulmonic valve was not well visualized. Tricuspid Valve There is trace tricuspid valve regurgitation. The right ventricular systolic pressure is normal. The right ventricular systolic pressure is 23 mmHg. There is no evidence of pulmonary hypertension. Great Vessels All visible segments of the aorta are normal in size. The pulmonary artery was not well visualized. Venous The inferior vena cava is normal in size and collapses greater than 50% with inspiration. Pericardium/Pleural There is a small circumferential pericardial effusion. Prior Study Comparison Changes noted compared to prior study dated: 01/09/2020. LV systolic function is further reduced Measurements 2D Linear Measurements IVSd: 1.25 0.6-0.9/0.6-1.0 cm LVIDd: 4.21 3.9-5.3/4.2-5.9 cm LVIDd Index: 2.17 2.4-3.2/2.2-3.1 cm/m2 LVIDs: 2.88 2.0-3.6 cm LVPWd: 1.21 0.7-1.1 cm Ao Root: 3.40 2.1-3.5 cm LA Diam: 3.30 2.7-3.8/3.0-4.0 cm LAIDs Index: 1.70 1.5-2.3 cm/m2 LV Mass: 231.01 67-162/88-224 g LV Mass Index: 119.08 43-95/49-115 g/m2 LVOT Diam: 2.10 3.0+(-)1.3 cm 2D Systolic Function EF 4C: 34.50 >55% EF 2C: 39.20 >55% EF BiP: 34.10 >55% Mitral Valve MV Pk E: 0.60 MV PK A: 0.84 MV Decel Time: 106.00 E/A: 0.70 E'Lateral: 5.55 E'Medial: 3.70 E/E' Med: 16.20 E/E' Lat: 10.80 PHT: 31.00 MVA PHT: 7.10 Decel [place]: 5.64 Aortic Valve AoV Pk Prashant: 1.27 AoV Mn Prashant: 0.86 AoV VTI: 0.22 AoV Pk Grad: 6.00 Aov Mn Grad: 3.00 TRISTIAN Cont.VTI: 2.58 LVOT LVOT Pk Prashant: 0.94 LVOT Mn Prashant: 0.62 LVOT VTI: 0.16 LVOT Pk Grad: 4.00 LVOT Mn Grad: 2.00 LVOT Diam: 2.10 LVOT Area: 3.46 Diastolic Function MV Pk E: 0.60 MV Pk A: 0.84 E/A: 0.70 E'Medial: 3.70 E/E' Med: 16.20 E' Laterial: 5.55 E/E' Lat: 10.80 Right Ventricle TAPSE (mm): 25.00 TVS' Prashant: 10.00 Tricuspid Valve TR Pk Prashant: 2.25 TR Pk Grad: 20.00 RA Press: 3.00 RVSP: 23.00 Great Vessels Aorta Ao Root-2D: 3.40 2.0-3.7 cm Ao Asc: 3.30 2.1-3.4 cm Pulmonary Valve PV Pk Prashant: 0.84 Peak PV Grad: 3.00 Updated in Other Vendor System with Status of Final Kilo Turner MD electronically signed on 10/19/2021 11:59:22 AM with status of Final
== END ==
LOC: HO.CARD 07:46
PROVIDERS: PCP Family Medicine; Visit Provider Internal Medicine Cardiovascular Disease
DX: R07.9 Chest pain, unspecified (principal); I10 Essential (primary) hypertension; R77.8 Other specified abnormalities of plasma proteins
CPT/HCPCS: 76775; 78452; 93017; 93306; 93975; A9500; J0280; J2785

== ENCOUNTER 2021-10-18 08:31 | Outpatient (REF) | payer MEDICAID, SELFPAY | END 2021-10-18 08:32 | disposition home or self-care (01) | LOC: HO.US 08:31 | PROVIDERS: Visit Provider Internal Medicine Cardiovascular Disease | DX: Z13.89 Encounter for screening for other disorder (principal) ==

== ENCOUNTER 2021-10-27 08:20 | Emergency (ER) | payer MEDICAID, SELFPAY ==
--- NOTE | 2021-10-27 | ECG_ITS ---
Test Reason : SOB Blood Pressure : / mmHG Vent. Rate : 120 BPM Atrial Rate : 120 BPM P-R Int : 146 ms QRS Dur : 076 ms QT Int : 330 ms P-R-T Axes : 075 032 085 degrees QTc Int : 466 ms Sinus tachycardia Nonspecific T wave abnormality Abnormal ECG When compared with ECG of 14-OCT-2021 05:37, Nonspecific T wave abnormality no longer evident in Anterior leads Referred By: Generic ED Physician Electronically Signed By:Jameson Jeffries
--- NOTE | ~2021-10-27 | XR_ITS ---
EXAMINATION: XR CHEST CLINICAL INFORMATION: Dyspnea. Covid positive. COMPARISON: October 14, 2021 TECHNIQUE: PA view of the chest was obtained. FINDINGS: There is no evidence of acute parenchymal disease, pneumothorax, or pleural effusion. Heart normal size. No evidence of pulmonary edema. Hazy density overlying the right hemithorax is related to breast implant. XR/XR chest 1V IMPRESSION: No acute disease.
[2021-10-27 09:54] LABS: Influenza A PCR NEGATIVE (Negative); Influenza B PCR NEGATIVE (Negative); Resp Syncy Virus RNA Qual PCR NEGATIVE (Negative); SARS COV2 PCR INHOUSE POSITIVE (Negative)
[2021-10-27 11:38] VITALS: BP 147/66; PULSE 116; RESP 19; TEMP 36.6; O2SAT 96; BMI 28.5
[2021-10-27 19:52] VITALS: BP 132/86; PULSE 106; RESP 18; TEMP 37.1; O2SAT 97
--- NOTE | 2021-10-27 21:59 | ED_ITS ---
HPI - URI/Sore Throat General Chief Complaint: Upper Respiratory Symptoms Stated Complaint: SOB/body pain Time Seen by Provider: 10/27/21 08:27 Source: patient Mode of arrival: ambulatory Limitations: no limitations History of Present Illness HPI Narrative: 45-year-old female presents to ED for URI symptoms. Patient had COVID last year and only received [employer] Home Medications Medication Instructions Recorded Confirmed ergocalciferol (vitamin D2) 1,250 1 cap PO TU@0900 08/13/21 10/15/21 mcg (50,000 unit) capsule acetaminophen 500 mg tablet 1 tab PO Q6H PRN 09/30/21 10/15/21 clonidine HCl 0.1 mg tablet 1 tab PO BEDTIME PRN 09/30/21 10/15/21 folic acid 1 mg tablet 1 tab PO DAILY 09/30/21 10/15/21 lidocaine 5 % topical patch 1 patch TOPICAL DAILY PRN 09/30/21 09/30/21 loratadine 10 mg tablet 1 tab PO DAILY 09/30/21 10/15/21 omeprazole 20 mg capsule,delayed 1 cap PO DAILY@0630 09/30/21 10/15/21 release thiamine HCl (vitamin B1) 100 mg 1 tab PO DAILY 09/30/21 10/15/21 tablet hydralazine 25 mg tablet 25 mg PO BID tab 10/15/21 10/15/21 lisinopril 40 mg tablet 40 mg PO QAM 10/15/21 10/15/21 spironolactone 25 mg tablet 25 mg PO QAM 10/15/21 10/15/21 Previous Rx's Medication Instructions Recorded ACL defiance brace #1 ea 07/29/21 albuterol sulfate 90 mcg/actuation 2 puff INHALATION Q4-6H PRN #8.5 g 09/12/21 aerosol inhaler magnesium oxide 400 mg (241.3 mg 400 mg PO BIDPC 30 Days #60 tab 10/02/21 magnesium) tablet chlordiazepoxide HCl 25 mg capsule 25 mg PO BID PRN #20 cap 10/09/21 metoprolol succinate 50 mg 50 mg PO DAILY #30 tab 10/12/21 tablet,extended release 24 hr (Toprol XL) Allergies Allergy/AdvReac Type Severity Reaction Status Date / Time amoxicillin [AMOXICILLIN] Allergy Intermediate rash, Verified 09/12/21 11:11 rash/itching sulfamethoxazole Allergy Intermediate RASH Verified 09/12/21 11:11 [From BACTRIM] trimethoprim [From BACTRIM] Allergy Intermediate RASH Verified 09/12/21 11:11 hydrocodone [Hydrocodone] Allergy Mild ITCH Verified 09/12/21 11:11 ibuprofen [From Motrin] Allergy Mild UPSET Verified 09/12/21 11:11 STOMACH latex [Latex] Allergy Mild ITCH Verified 09/12/21 11:11 Sulfa (Sulfonamide Allergy Unknown rash/itchin Verified 09/12/21 11:11 Antibiotics) g amoxicillin Allergy Unknown Unknown Uncoded 08/13/21 15:24 bactrim Allergy Unknown Unknown Uncoded 08/13/21 15:24 hydrocodone Allergy Unknown Unknown Uncoded 08/13/21 15:24 Hydrocodone-Ibuprofen Allergy Unknown rash/itchin Uncoded 08/13/21 15:24 g Latex Allergy Unknown Unknown Uncoded 08/13/21 15:24 latex Allergy Unknown Unknown Uncoded 08/13/21 15:24 motrin Allergy Unknown Unknown Uncoded 08/13/21 15:24 Review of Systems Review of Systems: Yes all other systems are reviewed and are negative Constitutional: Constitutional: Reports as per HPI, Reports no additional constitutional complaints and Reports body ache(s) Eyes: Eyes: Reports as per HPI and Reports no additional eye complaints ENT: Reports system reviewed and no additional complaints, except as documented and Reports as per HPI Cardiovascular: Cardiovascular: Reports as per HPI, Reports no additional cardiovascular complaints, Denies chest pain and Denies dyspnea Respiratory: Respiratory: Reports as per HPI, Reports no additional respiratory complaints, Reports cough and Denies dyspnea Gastrointestinal: Gastrointestinal: Reports as per HPI and Reports no additional gastrointestinal complaints Genitourinary: Genitourinary: Reports no additional female genitourinary complaints and Reports as per HPI Musculoskeletal: Musculoskeletal: Reports no additional musculoskeletal complaints and Reports as per HPI Neurologic: Reports system reviewed and no additional complaints, except as documented and Reports as per HPI Psychiatric: Psychiatric: Reports no additional psychiatric complaints and Reports as per HPI PMFSH Past Medical History Medical History Anxiety Breast cancer H/O ETOH abuse History of low potassium Hypertension Panic attack Uncontrolled hypertension Surgical History H/O: hysterectomy Family History Family History Mother Heart disease Alzheimers disease Social History Social History Household Members: Children Housing: House Do you presently have visiting nurse or other home services: No Alcohol intake: unknown Patient Tobacco Use Status: Current everyday Tobacco user Tobacco use type: Cigarette Advance Directives: No Advance Directives Information Provided: Yes Advance Directives Date on File: 10/01/21 Patient : No service: No Current occupational status: unemployed Physical Exam Vital Signs: Vital Signs: Last Vital Signs Temp 98.8 F 10/27/21 19:52 Pulse 106 H 10/27/21 19:52 Resp 18 10/27/21 19:52 BP 132/86 10/27/21 19:52 Pulse Ox 97 10/27/21 19:52 BMI result Body Mass Index 28.5 Const: General: cooperative, healthy appearing, comfortable, no acute distress, well developed, alert, awake and Physically active Orientation/consciousness: oriented to time and patient oriented x3 HENMT: Head: Yes normal to inspection, Yes No palpable skull fracture present, Yes normocephalic, Yes atraumatic and No abrasion Eyes: General: appearance normal, both eyes and all related structures Neck: Neck: Yes normal visual inspection, Yes full ROM, Yes no lymphadenopathy , Yes no meningeal signs, Yes trachea midline, Yes supple, No anterior neck swelling and No tender Chest: Chest palpation & inspection: normal inspection of the chest and normal palpation of entire chest wall Resp: Effort & Inspection: normal respiratory effort and able to speak in complete sentences Auscultation: clear to auscultation bilaterally Cardio: Jugular venous distension: no JVD Heart sounds: S1 normal heart sound present and S2 normal heart sound present GI: Inspection: Yes normal to inspection and No abdominal wall ecchymosis Palpation (GI): Soft to palpation, not firm, nontender, no guarding and not rigid : General: No CVA tenderness and Yes no CVA tenderness Back/Spine/Pelvis: Back: no CVA tenderness, No CVA tenderness and No back tenderness Skin: General skin exam: no rashes or lesions noted and elasticity normal Neuro: General: oriented to time, patient oriented x3, no meningeal signs and CN's II-XI intact bilaterally Cranial nerves: Yes CN's II-XII intact bilaterally Extrem: General: Yes normal to inspection and Yes full ROM Psych: Appearance: grossly normal, well kempt and not disheveled Course Course Course Narrative: Patient will be tested for COVID chest x-ray ordered. Reevaluation(s) Reevaluation #1: Chest x-ray normal. Patient positive for COVID. Patient vital signs are stable. Patient normal oxygen. Patient will be discharged. Patient is not toxic appearing MDM - URI/Sore Throat MDM Narrative Medical decision making narrative: COVID Lab Data Labs: Lab Results 10/27/21 Range/Units 09:07 Influenza Type A (PCR) NEGATIVE (Negative) Influenza Type B (PCR) NEGATIVE (Negative) RSV RNA Qual (PCR) NEGATIVE (Negative) SARS-CoV-2 RNA (RT-PCR) POSITIVE A (Negative) Discharge Plan Discharge Clinical Impression: COVID Patient Disposition: Home, Self-Care Instructions: COVID-19 (Coronavirus Disease 2019) (ED) Additional Instructions: You tested positive for COVID. Recommend 14 days self-isolation. Return to the ED for any chest pain, shortness of breath, weakness, dizziness, coughing up blood, calf pain, or any other concerning symptoms. Prescriptions: No Action (DME) ACL defiance brace See Rx Instructions .ROUTE .MEDSUPPLY Qty: 1 RF: 0 ergocalciferol (vitamin D2) 1,250 mcg (50,000 unit) capsule 1 cap PO TU@0900 RF: 0 albuterol sulfate 90 mcg/actuation HFA aerosol inhaler 2 puff inhalation Q4-6H PRN (Reason: shortness of breath or wheezing) Qty: 8.5 RF: 0 clonidine HCl 0.1 mg tablet 1 tab PO BEDTIME PRN (Reason: Anxiety) RF: 0 thiamine HCl (vitamin B1) 100 mg tablet 1 tab PO DAILY RF: 0 acetaminophen 500 mg tablet 1 tab PO Q6H PRN (Reason: Pain (Scale Score 1-3)) RF: 0 lidocaine 5 % adhesive patch,medicated 1 patch topical DAILY PRN (Reason: Pain (Scale Score 1-3)) RF: 0 omeprazole 20 mg capsule,delayed release(DR/EC) 1 cap PO DAILY@0630 RF: 0 folic acid 1 mg tablet 1 tab PO DAILY RF: 0 loratadine 10 mg tablet 1 tab PO DAILY RF: 0 magnesium oxide 400 mg (241.3 mg magnesium) Tablet 400 mg PO BIDPC 30 Days Qty: 60 RF: 0 chlordiazepoxide HCl 25 mg capsule 25 mg PO BID PRN (Reason: anxiety) Qty: 20 RF: 0 metoprolol succinate [Toprol XL] 50 mg tablet extended release 24 hr 50 mg PO DAILY Qty: 30 RF: 0 lisinopril 40 mg tablet 40 mg PO QAM RF: 0 spironolactone 25 mg tablet 25 mg PO QAM RF: 0 hydralazine 25 mg tablet 25 mg PO BID RF: 0 Interventions: ED Discharge Assessment Last Done: 10/27/21 23:08 Discharge Date/Time: 10/27/21 23:11 Print Language: Urdu
== END 2021-10-27 23:11 | disposition home or self-care (01) ==
PROVIDERS: Emergency Medicine; Emergency Provider Emergency Medicine Emergency Medical Services; PCP Family Medicine
DX: U07.1 COVID-19 (principal); R06.02 Shortness of breath; I10 Essential (primary) hypertension; Z85.3 Personal history of malignant neoplasm of breast
CPT/HCPCS: 0241U; 71045; 93005; 99283; 99284

== ENCOUNTER 2021-12-12 09:57 | Outpatient (REF) | payer MEDICAID, SELFPAY ==
--- NOTE | 2021-12-12 10:01 | EMG_ITS ---
This is a 46-year-old woman who has had many year history of bilateral hand pain and numbness with the right being worse than the left. The symptoms have remarkably worse in the last couple of months since she moved. PHYSICAL EXAMINATION: She has atrophy of the right abductor pollicis brevis muscle and weakness in the APB bilaterally. IMPRESSION: Severe carpal tunnel syndrome. Nerve conduction EMG study: Severe end-stage right carpal tunnel syndrome. Severe carpal tunnel syndrome on the left. EMG of both upper extremities including C5-T1 innervated muscles shows denervation in the abductor pollicis brevis muscle bilaterally with no voluntary motor units identified in the right APB consistent with severe end-stage carpal tunnel syndrome. MD LIZZ Marcelino/KALEB / [id number] MTDD
== END 2021-12-12 09:58 | disposition home or self-care (01) ==
LOC: HO.NEURO 09:57
PROVIDERS: PCP Family Medicine; Visit Provider Family Medicine
DX: G56.03 Carpal tunnel syndrome, bilateral upper limbs (principal)
CPT/HCPCS: 95886; 95913

== ENCOUNTER → 2022-01-03 12:47 | Outpatient (BNVA) | payer MEDICAID, SELFPAY | PROVIDERS: PCP Family Medicine; Visit Provider Physician Assistant | DX: M25.562 Pain in left knee (principal); M17.32 Unilateral post-traumatic osteoarthritis, left knee; I10 Essential (primary) hypertension; E87.6 Hypokalemia; F17.210 Nicotine dependence, cigarettes, uncomplicated; F41.0 Panic disorder [episodic paroxysmal anxiety]; Z88.2 Allergy status to sulfonamides; Z88.8 Allergy status to other drugs, medicaments and biological substances; Z88.1 Allergy status to other antibiotic agents; Z91.040 Latex allergy status | CPT/HCPCS: 99212 ==

== ENCOUNTER → 2022-01-16 10:02 | Outpatient (BNVA) | payer MEDICAID, SELFPAY | PROVIDERS: PCP Family Medicine; Visit Provider Orthopaedic Surgery | DX: M17.32 Unilateral post-traumatic osteoarthritis, left knee (principal); S83.512A Sprain of anterior cruciate ligament of left knee, initial encounter | CPT/HCPCS: 20610; 99212; J1100 ==

== ENCOUNTER → 2022-01-28 13:56 | Outpatient (BNVA) | payer MEDICAID, SELFPAY | PROVIDERS: PCP Family Medicine; Visit Provider Orthopaedic Surgery | DX: G56.03 Carpal tunnel syndrome, bilateral upper limbs (principal); I10 Essential (primary) hypertension; F41.0 Panic disorder [episodic paroxysmal anxiety]; F17.210 Nicotine dependence, cigarettes, uncomplicated; Z88.2 Allergy status to sulfonamides; Z88.8 Allergy status to other drugs, medicaments and biological substances; Z88.1 Allergy status to other antibiotic agents; Z91.040 Latex allergy status | CPT/HCPCS: 99202 ==

== ENCOUNTER 2022-02-10 09:09 | Day surgery (SDC) | payer MEDICAID, SELFPAY ==
[2022-02-03 15:41] VITALS: BMI 28.5
[2022-02-10 09:27] VITALS: BP 131/90; PULSE 105; RESP 16; TEMP 36.5; O2SAT 96
--- NOTE | 2022-02-10 10:57 | MHC.SHP ---
Pre-Procedural Eval Section A Date of Service: 02/10/22 The patient is an INPATIENT: No Changes since office visit: No Cold of Flu in the past 2 weeks, No New Medical Problems, No Changes in Medication and No Patient answered all questions The History & Physical has been completed within 30 days and I have reviewed it.: Yes Section B Chief Complaint: Carpal tunnel syndrome, Allergies: Allergies Allergy/AdvReac Type Severity Reaction Status Date / Time amoxicillin [AMOXICILLIN] Allergy Intermediate rash, Verified 01/28/22 14:09 rash/itching Sulfa (Sulfonamide Allergy Intermediate rash/itchin Verified 02/03/22 15:25 Antibiotics) g sulfamethoxazole Allergy Intermediate RASH Verified 01/28/22 14:09 [From BACTRIM] trimethoprim [From BACTRIM] Allergy Intermediate RASH Verified 01/28/22 14:09 hydrocodone [Hydrocodone] Allergy Mild ITCH Verified 01/28/22 14:09 ibuprofen [From Motrin] Allergy Mild UPSET Verified 01/28/22 14:09 STOMACH latex [Latex] Allergy Mild ITCH Verified 01/28/22 14:09 Plan I have reviewed the history and physical and performed a pertinent physical examination on my patient. No changes have occurred unless specified.
--- NOTE | 2022-02-10 10:57 | W.PM.OPN ---
Operative Note Operative Note Date of Service: 02/10/22 Narrative: Preop diagnosis: 1. right Carpal tunnel syndrome Postop diagnosis: same Procedure: 1. right Carpal tunnel release Surgeon: Marce Villalba MD Anesthesia: local block using 1% lidocaine with epinephrine Findings: Thickened transverse carpal ligament. EBL: Less than 5 mL Specimens: None Complications: None Disposition: Brought to recovery room in stable condition Plan: Follow-up for 10-14 days for wound check and suture removal Indications: The patient is 38 years old, with right carpal tunnel syndrome that has been unresponsive to nonoperative management. The risks and benefits of operative treatment including but not limited to risk of damage to blood vessels, nerves, tendons, infection, persistent pain, persistent symptoms, or possible need for additional surgery were discussed with the patient and the patient wishes to proceed with surgery. Procedure: Once consent was obtained a local block was performed using a combination of 1% lidocaine with epinephrine. The patient was then brought back to the operating suite and placed on the operative table in supine position. A tourniquet was applied to the proximal aspect of the right upper extremity and the limb was prepped and draped in a standard surgical fashion. Once assured that we had a good block, a 1.5 cm longitudinal incision was made centered over the carpal tunnel. The incision was made through the skin to the subcutaneous tissues using a #15 blade. Dissection was made down to the level of the transverse carpal ligament with care being taken to protect the palmar cutaneous nerve. Once the transverse carpal ligament was clearly visualized, a longitudinal incision was made in the transverse carpal ligament 1st using a #15 blade, then using tenotomy scissors under direct visualization. Care was taken to look for and protect the motor branch of the median nerve when seen in this area. Once satisfied with our carpal tunnel release the wound was copiously irrigated with normal saline and hemostasis was obtained with a brief period of local pressure. The skin edges were reapproximated with some 5.0 nylon suture material and a sterile dressing was applied. The patient appears to have tolerated the procedure well and with no complications. All digits were well vascularized at the conclusion of the case.
--- NOTE | 2022-02-10 12:20 | MHC.SHP ---
Pre-Procedural Eval Section A Date of Service: 02/10/22 The patient is an INPATIENT: No Changes since office visit: No Cold of Flu in the past 2 weeks, No New Medical Problems, No Changes in Medication and No Patient answered all questions The History & Physical has been completed within 30 days and I have reviewed it.: Yes Section B Chief Complaint: Carpal tunnel syndrome, Allergies: Allergies Allergy/AdvReac Type Severity Reaction Status Date / Time amoxicillin [AMOXICILLIN] Allergy Intermediate rash, Verified 02/10/22 12:18 rash/itching Sulfa (Sulfonamide Allergy Intermediate rash/itchin Verified 02/10/22 12:18 Antibiotics) g sulfamethoxazole Allergy Intermediate RASH Verified 02/10/22 12:18 [From BACTRIM] trimethoprim [From BACTRIM] Allergy Intermediate RASH Verified 02/10/22 12:18 hydrocodone [Hydrocodone] Allergy Mild ITCH Verified 02/10/22 12:18 ibuprofen [From Motrin] Allergy Mild UPSET Verified 02/10/22 12:18 STOMACH latex [Latex] Allergy Mild ITCH Verified 02/10/22 12:18 Plan I have reviewed the history and physical and performed a pertinent physical examination on my patient. No changes have occurred unless specified.
[2022-02-10 12:53] VITALS: BP 134/83; PULSE 104; RESP 17; TEMP 36.4; O2SAT 98
== END 2022-02-10 13:06 | disposition home or self-care (01) ==
PROVIDERS: PCP Family Medicine; Visit Provider Orthopaedic Surgery
PROC: (CPT 64721; principal; 2022-02-10 10:00)
DX: G56.01 Carpal tunnel syndrome, right upper limb (principal); I10 Essential (primary) hypertension
CPT/HCPCS: 64721; J0171

== ENCOUNTER 2022-02-13 08:23 | Outpatient (REF) | payer MEDICAID, SELFPAY ==
--- NOTE | ~2022-02-13 | MR_ITS ---
EXAMINATION: MR BREAST WITHOUT CONTRAST, RIGHT CLINICAL INFORMATION: Personal history of right breast carcinoma, status post mastectomy with silicone implant reconstruction. COMPARISON: None TECHNIQUE: Utilizing a high-field scanner and dedicated breast coil, and prior to the administration of contrast, T1-weighted sequences without fat-saturation were obtained in the axial and sagittal plane. Sagittal fat-saturated T1 and T2-weighted sequences were acquired. A STIR sequence was also obtained through the right breast in the axial plane with and without suppression of the silicone signal. Image quality is significantly limited due to marked patient motion artifact and poor water saturation on the silicone sensitive sequence. We attempted to have the patient return for repeat imaging, however this was unable to be coordinated. FINDINGS: There are postmastectomy changes present, no visible residual fibroglandular tissue is seen. The retropectoral silicone implant demonstrates marked distortion and contour irregularity superiorly. However, there is no evidence of overt implant rupture. No extracapsular silicone is seen on these limited images. The axillary lymph nodes are morphologically normal. No suspicious internal mammary lymph nodes are seen. The imaged portions of the chest and upper abdomen are grossly unremarkable. MR/MR breast RT wo con IMPRESSION: Limited noncontrast exam reveals mastectomy changes and a distorted silicone retropectoral implants to be present on the right. There is no specific evidence of silicone implant rupture or extracapsular silicone. ASSESSMENT: BI-RADS 2 RECOMMENDATIONS: Clinical follow-up.
== END 2022-02-13 08:24 | disposition home or self-care (01) ==
LOC: HO.MRI 08:23
PROVIDERS: Visit Provider Family Medicine
DX: Z98.82 Breast implant status (principal)
CPT/HCPCS: 77046

== ENCOUNTER → 2022-02-25 11:22 | Outpatient (BNVA) | payer MEDICAID, SELFPAY | PROVIDERS: PCP Family Medicine; Visit Provider Orthopaedic Surgery | DX: Z47.89 Encounter for other orthopedic aftercare (principal); G56.02 Carpal tunnel syndrome, left upper limb; Z87.39 Personal history of other diseases of the musculoskeletal system and connective tissue | CPT/HCPCS: 99212 ==

== ENCOUNTER → 2022-03-05 12:56 | Outpatient (REF) | payer MEDICAID, SELFPAY | LOC: HO.SL 12:56 | PROVIDERS: PCP Family Medicine; Visit Provider Internal Medicine Cardiovascular Disease | DX: G47.33 Obstructive sleep apnea (adult) (pediatric) (principal); G47.10 Hypersomnia, unspecified; I10 Essential (primary) hypertension | CPT/HCPCS: 95806 ==

== ENCOUNTER 2022-04-05 21:59 | Emergency (ER) | payer MEDICAID, SELFPAY ==
--- NOTE | ~2022-04-05 | XR_ITS ---
EXAMINATION: XR CHEST CLINICAL INFORMATION: Chest tightness COMPARISON: 10/27/2021 TECHNIQUE: Frontal view of the chest was obtained. FINDINGS: The lungs are clear with no focal consolidation. No evidence of pneumothorax, pulmonary edema, or pleural effusions. The cardiomediastinal contour is unremarkable. There is a levoscoliosis of the upper thoracic spine which appears increased from prior. XR/XR chest 1V IMPRESSION: No acute cardiopulmonary findings. Increased levoscoliosis of the upper thoracic spine.
[2022-04-05 23:19] VITALS: BP 190/129; PULSE 98; RESP 14; TEMP 36.4; O2SAT 98; BMI 25.0
--- NOTE | 2022-04-05 23:28 | ECG_ITS ---
Test Reason : CHEST TIGHTNESS Blood Pressure : / mmHG Vent. Rate : 092 BPM Atrial Rate : 092 BPM P-R Int : 182 ms QRS Dur : 084 ms QT Int : 430 ms P-R-T Axes : 063 017 072 degrees QTc Int : 531 ms Normal sinus rhythm Nonspecific T wave abnormality Prolonged QT Abnormal ECG When compared with ECG of 27-OCT-2021 08:58, No significant change was found Referred By: Generic ED Physician Electronically Signed By:KENNEDI BOURGEOIS MD
[2022-04-05 23:49] LABS: Basophils Absolute Auto 0.1 X10*3/uL (0.0-0.2); Basophils Percent Auto 1.1 % (0-2); Eosinophils Absolute Auto 0.2 X10*3/uL (0.0-0.4); Eosinophils Percent Auto 1.6 % (0-4); Hematocrit 38.8 % (37.0-47.0); Imm Gran Abs Auto 0.03 X10*3/uL (0.00-0.03); Imm Gran Pct Auto 0.3 % (0.0-0.4); Lymphocytes Absolute Auto 3.2 X10*3/uL (1.2-4.9); MANUAL DIFF FLAG NO; Mean Corpuscular HGB Conc 33.5 g/dl (31.0-35.0); Mean Corpuscular Volume 89.4 fL (80.0-98.0); Mean Platelet Volume 9.7 fL (9.4-12.3); Monocytes Absolute Auto 0.8 X10*3/uL (0.1-1.2); Monocytes Percent Auto 7.5 % (2-11); Neutrophils Percent Auto 58.5 % (45-73); Platelet Count 367 X10*3/uL (160-400); Red Blood Count 4.34 X10*6/uL (4.20-5.50); Red Cell Distribution Width 13.8 % (11.0-16.0); White Blood Count 10.2 X10*3/uL (4.8-10.8)
[2022-04-06 00:11] LABS: Anion Gap 18 (12-20); Blood Urea Nitrogen 15 mg/dL (9-16); Calcium 8.9 mg/dL (8.4-10.2); Carbon Dioxide 20 mmol/L (22-29); Chloride 105 mmol/L (96-108); Creatinine Clr Calc Pharmacy 85.8; Estimated Glomerular Filt Rate > 60; Glucose Random 115 mg/dL (60-115); Potassium 3.8 mmol/L (3.3-5.1); Sodium 139 mmol/L (135-145)
[2022-04-06 00:18] LABS: Troponin-I High Sensitivity 20.4 ng/L (<3.5-17.0)
[2022-04-06 01:09] VITALS: BP 171/113; PULSE 97; RESP 18; O2SAT 96
--- NOTE | 2022-04-06 01:10 | PC.NURSE ---
Pt takes lisinopril and spiranolactone but spiranolactone was stopped for x 1 month for upcoming LT hand carpal tunnel surgery surgery. Per pt, PCP started her on coreg yesterday. Today, BP remains elevated at home and started having VIRAMONTES and chest tightness [employer].
--- NOTE | 2022-04-06 01:22 | ED_ITS ---
HPI - Chest Pain General Chief Complaint: Chest Pain Stated Complaint: High BP Time Seen by Provider: 04/06/22 01:21 History of Present Illness HPI narrative: Patient is a 46-year-old presents today with having elevated high blood pressure. Patient baseline he is on lisinopril 40 mg q.d..Also on Coreg 12 5 mg b.i.d.. Presented today with having still elevated blood pressure. Patient's last check was 170/110. Patient has had some constant chest tightness. Patient claimed that is not new. There is no diaphoresis. Positive history of high blood pressure. No history of diabetes. No history of blood clots. No history of leg swelling. No history of hormone replacement. No travel history. The symptom has been fairly constant. She came in mostly for the elevated blood pre ssure. Patient from home. Also had a history of anxiety and feels somewhat anxious secondary to the situation. Related Data Home Medications Medication Instructions Recorded Confirmed ergocalciferol (vitamin D2) 1,250 1 cap PO TU@0900 08/13/21 02/03/22 mcg (50,000 unit) capsule acetaminophen 500 mg tablet 1 tab PO Q6H PRN 09/30/21 02/03/22 clonidine HCl 0.1 mg tablet 1 tab PO BEDTIME PRN 09/30/21 02/03/22 folic acid 1 mg tablet 1 tab PO DAILY 09/30/21 02/03/22 lidocaine 5 % topical patch 1 patch TOPICAL DAILY PRN 09/30/21 02/03/22 loratadine 10 mg tablet 1 tab PO DAILY 09/30/21 02/03/22 omeprazole 20 mg capsule,delayed 1 cap PO DAILY@0630 09/30/21 02/03/22 release thiamine HCl (vitamin B1) 100 mg 1 tab PO DAILY 09/30/21 02/03/22 tablet hydralazine 25 mg tablet 25 mg PO BID tab 10/15/21 02/03/22 lisinopril 40 mg tablet 40 mg PO QAM 10/15/21 02/03/22 spironolactone 25 mg tablet 25 mg PO QAM 10/15/21 02/03/22 prazosin 1 mg capsule 1 mg PO BEDTIME 01/16/22 02/03/22 Previous Rx's Medication Instructions Recorded ACL defiance brace #1 ea 07/29/21 albuterol sulfate 90 mcg/actuation 2 puff INHALATION Q4-6H PRN #8.5 g 09/12/21 aerosol inhaler magnesium oxide 400 mg (241.3 mg 400 mg PO BIDPC 30 Days #60 tab 10/02/21 magnesium) tablet chlordiazepoxide HCl 25 mg capsule 25 mg PO BID PRN #20 cap 10/09/21 metoprolol succinate 50 mg 50 mg PO DAILY #30 tab 10/12/21 tablet,extended release 24 hr (Toprol XL) oxycodone-acetaminophen 5 mg-325 1 tab PO Q6H PRN #5 tab 02/10/22 mg tablet Allergies Allergy/AdvReac Type Severity Reaction Status Date / Time amoxicillin [AMOXICILLIN] Allergy Intermediate rash, Verified 02/25/22 12:00 rash/itching Sulfa (Sulfonamide Allergy Intermediate rash/itchin Verified 02/25/22 12:00 Antibiotics) g sulfamethoxazole Allergy Intermediate RASH Verified 02/25/22 12:00 [From BACTRIM] trimethoprim [From BACTRIM] Allergy Intermediate RASH Verified 02/25/22 12:00 hydrocodone [Hydrocodone] Allergy Mild ITCH Verified 02/25/22 12:00 ibuprofen [From Motrin] Allergy Mild UPSET Verified 02/25/22 12:00 STOMACH latex [Latex] Allergy Mild ITCH Verified 02/25/22 12:00 Review of Systems Review of Systems: Positive elevated blood pressure Positive chest tightness that is been ongoing for the last 2 days. Constant. Not associated with any diaphoresis Yes all other systems are reviewed and are negative PMFSH Past Medical History Attestation statement: The following information was validated with the patient. Medical History Anxiety Breast cancer H/O ETOH abuse History of COVID-19 History of low potassium Hypertension Panic attack Uncontrolled hypertension Surgical History H/O: hysterectomy History of breast lump/mass excision Hx of tubal ligation Family History Family History Mother Heart disease Alzheimers disease Social History Social History Household Members: Children Housing: House Do you presently have visiting nurse or other home services: No Alcohol intake: current Alcohol intake frequency: a few times a week Alcohol type: hard liquor Patient Tobacco Use Status: Current someday Tobacco user Tobacco use type: Cigarette Smoked in Last 30 Days: Yes Use of substances other than those prescribed or required for medical reasons: No Advance Directives: No Advance Directives Information Provided: No Advance Directives Date on File: 10/01/21 service: No Current occupational status: unemployed Physical Exam Vital Signs: Vital Signs: Last Vital Signs Temp 97.6 F 04/05/22 23:19 Pulse 96 04/06/22 02:57 Resp 13 04/06/22 02:00 BP 142/94 H 04/06/22 02:57 Pulse Ox 99 04/06/22 02:00 BMI result Body Mass Index 25.0 Appearance: Alert. Oriented X3. No acute distress. Eyes: Pupils equal, round and reactive to light. ENT: Pharynx normal. Neck: Normal inspection. Neck supple. No lymph nodes noted. No crepitus CVS: Normal heart rate and rhythm. Pulses normal. Normal S1 and S2 Respiratory: No respiratory distress. Breath sounds normal. No Wheezing. No rales Abdomen: Soft and nontender. No rigidity. No distention. good BS x4 Skin: Skin warm and dry. Normal skin color. Normal skin turgor. Extremities: No lower extremity edema. Neurovascular intact to all extremities. No Lacerations. No Rash Neuro: Oriented X 3. No motor deficit. No sensory deficit. Moving all extermities. No slurred speech MDM - Chest Pain MDM Narrative Medical decision making narrative: Patient's EKG showed a sinus pattern I rate is 90 MI QRS QTC within normal limits there is nonspecific diffuse T-wave abnormality there is no changes from previous. Will get cardiac enzymes x2 sets. Patient has a history of anxiety will give a small dose of anxiety medication. Will monitor blood pressure closely. Currently in no distress. Patient's chest pain atypical ACS he does have some risk factor her EKG is unchanged her 1st set of troponin is baseline. Patient's blood pressure came down with Ativan. Sleeping. Repeat blood pr essure was 140/80. Patient's did 2 sets of cardiac enzymes they were approximately the same. There is no greater than 50% increase. History not consistent with ACS. [place] comfortable discharging patient home close follow-up outpatient basis she is in stable condition Medical Records Data Attestation: I reviewed the patient's medical records. Lab Data Attestation: I reviewed the patient's lab results. Result diagrams: 04/05/22 23:42 04/05/22 23:42 Labs: Lab Results 04/05/22 04/05/22 04/05/22 Range/Units 23:42 23:42 23:42 WBC 10.2 (4.8-10.8) X10*3/uL RBC 4.34 (4.20-5.50) X10*6/uL Hgb 13.0 (12.0-16.0) g/dl Hct 38.8 (37.0-47.0) % MCV 89.4 (80.0-98.0) fL MCH 30.0 (27.0-33.0) pg MCHC 33.5 (31.0-35.0) g/dl RDW 13.8 (11.0-16.0) % Plt Count 367 (160-400) X10*3/uL MPV 9.7 (9.4-12.3) fL Immature Gran % (Auto) 0.3 (0.0-0.4) % Neut % (Auto) 58.5 (45-73) % Lymph % (Auto) 31.0 (20-40) % Hayes % (Auto) 7.5 (2-11) % Eos % (Auto) 1.6 (0-4) % Baso % (Auto) 1.1 (0-2) % Lymph # (Auto) 3.2 (1.2-4.9) X10*3/uL Hayes # (Auto) 0.8 (0.1-1.2) X10*3/uL Eos # (Auto) 0.2 (0.0-0.4) X10*3/uL Baso # (Auto) 0.1 (0.0-0.2) X10*3/uL Abs Immat Gran (auto) 0.03 (0.00-0.03) X10*3/uL Absolute Neuts (auto) 6.0 (2.0-8.3) x10*3/uL Absolute Nucleated RBC 0.000 (0.0-0.012) X10*3/uL Nucleated RBC % (auto) 0.0 (0.0-0.2) /100WBC Sodium 139 (135-145) mmol/L Potassium 3.8 (3.3-5.1) mmol/L Chloride 105 (96-108) mmol/L Carbon Dioxide 20 L (22-29) mmol/L Anion Gap 18 (12-20) BUN 15 (9-16) mg/dL Creatinine 0.78 (0.5-1.4) mg/dL Estim Creat Clear Calc 85.8 Estimated GFR > 60 Random Glucose 115 (60-115) mg/dL Calcium 8.9 D (8.4-10.2) mg/dL Troponin I High Sens 20.4 H (<3.5-17.0) ng/L 04/06/22 Range/Units 02:58 WBC (4.8-10.8) X10*3/uL RBC (4.20-5.50) X10*6/uL Hgb (12.0-16.0) g/dl Hct (37.0-47.0) % MCV (80.0-98.0) fL MCH (27.0-33.0) pg MCHC (31.0-35.0) g/dl RDW (11.0-16.0) % Plt Count (160-400) X10*3/uL MPV (9.4-12.3) fL Immature Gran % (Auto) (0.0-0.4) % Neut % (Auto) (45-73) % Lymph % (Auto) (20-40) % Hayes % (Auto) (2-11) % Eos % (Auto) (0-4) % Baso % (Auto) (0-2) % Lymph # (Auto) (1.2-4.9) X10*3/uL Hayes # (Auto) (0.1-1.2) X10*3/uL Eos # (Auto) (0.0-0.4) X10*3/uL Baso # (Auto) (0.0-0.2) X10*3/uL Abs Immat Gran (auto) (0.00-0.03) X10*3/uL Absolute Neuts (auto) (2.0-8.3) x10*3/uL Absolute Nucleated RBC (0.0-0.012) X10*3/uL Nucleated RBC % (auto) (0.0-0.2) /100WBC Sodium (135-145) mmol/L Potassium (3.3-5.1) mmol/L Chloride (96-108) mmol/L Carbon Dioxide (22-29) mmol/L Anion Gap (12-20) BUN (9-16) mg/dL Creatinine (0.5-1.4) mg/dL Estim Creat Clear Calc Estimated GFR Random Glucose (60-115) mg/dL Calcium (8.4-10.2) mg/dL Troponin I High Sens 25.4 H (<3.5-17.0) ng/L Discharge Plan Discharge Clinical Impression: Chest pain, Hypertension Patient Disposition: Home, Self-Care Instructions: Chronic Hypertension (DC), Chest Pain (ED) Prescriptions: No Action (DME) ACL defiance brace See Rx Instructions .ROUTE .MEDSUPPLY Qty: 1 0RF Rx Instructions: n/a ergocalciferol (vitamin D2) 1,250 mcg (50,000 unit) capsule 1 cap PO TU@0900 0RF albuterol sulfate 90 mcg/actuation HFA aerosol inhaler 2 puff inhalation Q4-6H PRN (Reason: shortness of breath or wheezing) Qty: 8.5 0RF clonidine HCl 0.1 mg tablet 1 tab PO BEDTIME PRN (Reason: Anxiety) 0RF thiamine HCl (vitamin B1) 100 mg tablet 1 tab PO DAILY 0RF acetaminophen 500 mg tablet 1 tab PO Q6H PRN (Reason: Pain (Scale Score 1-3)) 0RF lidocaine 5 % adhesive patch,medicated 1 patch topical DAILY PRN (Reason: Pain (Scale Score 1-3)) 0RF omeprazole 20 mg capsule,delayed release(DR/EC) 1 cap PO DAILY@0630 0RF folic acid 1 mg tablet 1 tab PO DAILY 0RF loratadine 10 mg tablet 1 tab PO DAILY 0RF magnesium oxide 400 mg (241.3 mg magnesium) Tablet 400 mg PO BIDPC 30 Days Qty: 60 0RF chlordiazepoxide HCl 25 mg capsule 25 mg PO BID PRN (Reason: anxiety) Qty: 20 0RF metoprolol succinate [Toprol XL] 50 mg tablet extended release 24 hr 50 mg PO DAILY Qty: 30 0RF oxycodone-acetaminophen 5-325 mg tablet 1 tab PO Q6H PRN (Reason: pain) Qty: 5 0RF lisinopril 40 mg tablet 40 mg PO QAM 0RF spironolactone 25 mg tablet 25 mg PO QAM 0RF hydralazine 25 mg tablet 25 mg PO BID 0RF prazosin 1 mg capsule 1 mg PO BEDTIME 0RF Referrals: Physician,Unknown J [Primary Care Provider] - (Blood pressure recheck in 2 days. Worsened chest pain return. Please follow-up with the loan analyst for your chest pain. Two sets of cardiac enzymes were done but still very small ris k of heart problems still exists)
[2022-04-06] MEDS: LORazepam 1 MG TABLET PO (01:43)
[2022-04-06 02:00] VITALS: BP 149/106; PULSE 89; RESP 13; O2SAT 99
[2022-04-06 02:25] VITALS: PULSE 92
[2022-04-06 02:57] VITALS: BP 142/94; PULSE 96
[2022-04-06 03:23] LABS: Troponin-I High Sensitivity 25.4 ng/L (<3.5-17.0)
== END 2022-04-06 03:42 | disposition home or self-care (01) ==
PROVIDERS: Emergency Provider Emergency Medicine Emergency Medical Services
DX: R07.9 Chest pain, unspecified (principal); I10 Essential (primary) hypertension; F17.200 Nicotine dependence, unspecified, uncomplicated; Z79.899 Other long term (current) drug therapy
CPT/HCPCS: 36415; 71045; 80048; 84484; 85025; 93005; 99284

== ENCOUNTER 2022-05-01 11:58 | Day surgery (SDC) | payer MEDICAID, SELFPAY ==
[2022-05-01 12:50] VITALS: BMI 28.6
[2022-05-01 13:04] VITALS: BP 117/85; PULSE 99; RESP 18; TEMP 36.1; O2SAT 98
--- NOTE | 2022-05-01 14:10 | MHC.SHP ---
Pre-Procedural Eval Section A Date of Service: 05/01/22 Section B Chief Complaint: Carpal tunnel syndrome, left upper limb Allergies: Allergies Allergy/AdvReac Type Severity Reaction Status Date / Time amoxicillin [AMOXICILLIN] Allergy Intermediate rash, Verified 05/01/22 12:57 rash/itching Sulfa (Sulfonamide Allergy Intermediate rash/itchin Verified 05/01/22 12:57 Antibiotics) g sulfamethoxazole Allergy Intermediate RASH Verified 05/01/22 12:57 [From BACTRIM] trimethoprim [From BACTRIM] Allergy Intermediate RASH Verified 05/01/22 12:57 hydrocodone [Hydrocodone] Allergy Mild ITCH Verified 05/01/22 12:57 ibuprofen [From Motrin] Allergy Mild UPSET Verified 05/01/22 12:57 STOMACH latex [Latex] Allergy Mild ITCH Verified 05/01/22 12:57 Plan I have reviewed the history and physical and performed a pertinent physical examination on my patient. No changes have occurred unless specified.
--- NOTE | 2022-05-01 14:10 | W.PM.OPN ---
Operative Note Operative Note Date of Service: 05/01/22 Narrative: Preop diagnosis: 1. left Carpal tunnel syndrome Postop diagnosis: same Procedure: 1. left Carpal tunnel release Surgeon: Marce Villalba MD Anesthesia: local block using 1% lidocaine with epinephrine Findings: Thickened transverse carpal ligament. EBL: Less than 5 mL Specimens: None Complications: None Disposition: Brought to recovery room in stable condition Plan: Follow-up for 10-14 days for wound check and suture removal Indications: The patient is 46 years old, with left carpal tunnel syndrome that has been unresponsive to nonoperative management. The risks and benefits of operative treatment including but not limited to risk of damage to blood vessels, nerves, tendons, infection, persistent pain, persistent symptoms, or possible need for additional surgery were discussed with the patient and the patient wishes to proceed with surgery. Procedure: Once consent was obtained a local block was performed using a combination of 1% lidocaine with epinephrine. The patient was then brought back to the operating suite and placed on the operative table in supine position. A tourniquet was applied to the proximal aspect of the left upper extremity and the limb was prepped and draped in a standard surgical fashion. Once assured that we had a good block, a 1.5 cm longitudinal incision was made centered over the carpal tunnel. The incision was made through the skin to the subcutaneous tissues using a #15 blade. Dissection was made down to the level of the transverse carpal ligament with care being taken to protect the palmar cutaneous nerve. Once the transverse carpal ligament was clearly visualized, a longitudinal incision was made in the transverse carpal ligament 1st using a #15 blade, then using tenotomy scissors under direct visualization. Care was taken to look for and protect the motor branch of the median nerve when seen in this area. Once satisfied with our carpal tunnel release the wound was copiously irrigated with normal saline and hemostasis was obtained with a brief period of local pressure. The skin edges were reapproximated with some 5.0 nylon suture material and a sterile dressing was applied. The patient appears to have tolerated the procedure well and with no complications. All digits were well vascularized at the conclusion of the case.
[2022-05-01 15:21] VITALS: BP 134/96; PULSE 92; RESP 20; O2SAT 98
== END 2022-05-01 15:33 | disposition home or self-care (01) ==
PROVIDERS: PCP Family Medicine; Visit Provider Orthopaedic Surgery
PROC: (CPT 64721; principal; 2022-05-01 14:40)
DX: G56.02 Carpal tunnel syndrome, left upper limb (principal); R20.0 Anesthesia of skin; I10 Essential (primary) hypertension; F41.1 Generalized anxiety disorder; F41.0 Panic disorder [episodic paroxysmal anxiety]; Z79.899 Other long term (current) drug therapy; Z85.3 Personal history of malignant neoplasm of breast; Z88.1 Allergy status to other antibiotic agents; Z88.2 Allergy status to sulfonamides; Z88.8 Allergy status to other drugs, medicaments and biological substances; Z91.040 Latex allergy status; Z86.16 Personal history of COVID-19; F17.210 Nicotine dependence, cigarettes, uncomplicated
CPT/HCPCS: 64721; J0171

== ENCOUNTER 2022-06-04 13:47 | Inpatient (IN) | payer MEDICAID, SELFPAY ==
--- NOTE | ~2022-06-04 | XR_ITS ---
EXAMINATION: XR CHEST CLINICAL INFORMATION: Chest pain COMPARISON: Chest radiograph 04/05/[address] angiogram chest 09/30/2021 TECHNIQUE: 2 views of the chest were obtained. FINDINGS: No significant abnormality is noted involving the heart, lungs, mediastinum, bony thorax or soft tissues. The aorta is mildly ectatic and unchanged. Again seen is a mild biconvex thoracolumbar scoliosis. XR/XR chest 2V IMPRESSION: No acute intrathoracic disease
[2022-06-04 13:59] VITALS: BP 131/96; PULSE 126; O2SAT 99
[2022-06-04 15:01] VITALS: BP 128/90; PULSE 111; RESP 20; TEMP 36.4; O2SAT 98; BMI 28.1
--- NOTE | 2022-06-04 16:51 | ECG_ITS ---
Test Reason : CHESTPAIN Blood Pressure : / mmHG Vent. Rate : 105 BPM Atrial Rate : 105 BPM P-R Int : 174 ms QRS Dur : 080 ms QT Int : 370 ms P-R-T Axes : 051 023 071 degrees QTc Int : 489 ms Sinus tachycardia Nonspecific T wave abnormality Abnormal ECG When compared with ECG of 05-APR-2022 23:24, No significant change was found Referred By: Silvana Joshi Electronically Signed By:KENNEDI BOURGEOIS MD
[2022-06-04] MEDS: 0.9 % Sodium Chloride 1,000 ML 999 ML IV ×2 (17:23→19:41)
[2022-06-04] MEDS: ondansetron HCL 4 MG/2 ML VIAL IVPUSH (17:28)
[2022-06-04] MEDS: LORazepam 1 MG TABLET PO (17:28)
[2022-06-04 17:46] LABS: MANUAL DIFF FLAG NO
[2022-06-04 17:49] LABS: Basophils Absolute Auto 0.1 X10*3/uL (0.0-0.2); Basophils Percent Auto 1.1 % (0-2); Eosinophils Absolute Auto 0.1 X10*3/uL (0.0-0.4); Eosinophils Percent Auto 1.5 % (0-4); Hematocrit 38.7 % (37.0-47.0); Imm Gran Abs Auto 0.03 X10*3/uL (0.00-0.03); Imm Gran Pct Auto 0.4 % (0.0-0.4); Lymphocytes Absolute Auto 1.9 X10*3/uL (1.2-4.9); Lymphocytes Percent Auto 24.6 % (20-40); Mean Corpuscular HGB Conc 33.6 g/dl (31.0-35.0); Mean Corpuscular Hemoglobin 29.9 pg (27.0-33.0); Mean Platelet Volume 10.1 fL (9.4-12.3); Monocytes Absolute Auto 0.5 X10*3/uL (0.1-1.2); NRBC Pct Auto 0.3 /100WBC (0.0-0.2); Neutrophils Absolute Auto 5.2 x10*3/uL (2.0-8.3); Neutrophils Percent Auto 66.4 % (45-73); Platelet Count 217 X10*3/uL (160-400); Red Blood Count 4.35 X10*6/uL (4.20-5.50); Red Cell Distribution Width 15.1 % (11.0-16.0); White Blood Count 7.8 X10*3/uL (4.8-10.8)
--- NOTE | 2022-06-04 17:53 | ED_ITS ---
HPI - Anxiety General Chief Complaint: Anxiety Stated Complaint: ANXIETY Time Seen by Provider: 06/04/22 16:03 Source: patient Mode of arrival: ambulatory History of Present Illness HPI narrative: 46-year-old female with a past medical history anxiety, ETOH abuse, HTN, panic attacks, presenting to the ED complaining of increased anxiety times a couple days. Also reports intermittent chest tightness, nausea, & myalgias. Also reports chronic ETOH user, will not specify amount, admits has been trying to cut back last drink 1.5 days ago. States symptoms feel similar to prior anxiety as well as ETOH withdrawal. Denies history of EtOH withdrawal seizures. Denies shortness of breath, cough, fever, abdominal pain, vomiting, dysuria/hematuria. MD complaint: anxiety Onset (ago): day(s) Symptoms: chest pain Severity: mild Related Data Home Medications Medication Instructions Recorded Confirmed acetaminophen 500 mg tablet 1 tab PO Q6H PRN Pain (Scale Score 09/30/21 02/03/22 1-3) clonidine HCl 0.1 mg tablet 1 tab PO BEDTIME PRN Anxiety 09/30/21 02/03/22 folic acid 1 mg tablet 1 tab PO DAILY 09/30/21 02/03/22 loratadine 10 mg tablet 1 tab PO DAILY 09/30/21 02/03/22 omeprazole 20 mg capsule,delayed 1 cap PO DAILY@0630 09/30/21 02/03/22 release thiamine HCl (vitamin B1) 100 mg 1 tab PO DAILY 09/30/21 02/03/22 tablet hydralazine 25 mg tablet 25 mg PO BID 10/15/21 02/03/22 lisinopril 40 mg tablet 40 mg PO QAM 10/15/21 02/03/22 spironolactone 25 mg tablet 25 mg PO QAM 10/15/21 02/03/22 aspirin 81 mg tablet,delayed 1 tab PO QAM 06/04/22 release carvedilol 3.125 mg tablet 1 tab PO BID 06/04/22 chlorthalidone 25 mg tablet 1 tab PO QAM 06/04/22 cholecalciferol (vitamin D3) 25 1 cap PO QAM 06/04/22 mcg (1,000 unit) capsule (Vitamin D3) docusate sodium 100 mg capsule 1 cap PO BID PRN Constipation 06/04/22 duloxetine 20 mg capsule,delayed 1 cap PO DAILY 06/04/22 release multivitamin-ferrous 1 tab PO QAM 06/04/22 fumarate-folic acid 18 mg-400 mcg tablet (Certavite-Antioxidant) ropinirole 0.25 mg tablet 1 tab PO BEDTIME 06/04/22 simvastatin 10 mg tablet 1 tab PO QPM 06/04/22 Previous Rx's Medication Instructions Recorded ACL defiance brace #1 ea 07/29/21 albuterol sulfate 90 mcg/actuation 2 puff inhalation Q4-6H PRN 09/12/21 aerosol inhaler shortness of breath or wheezing #8.5 grams magnesium oxide 400 mg (241.3 mg 400 mg PO BIDPC 30 days #60 tabs 10/02/21 magnesium) tablet metoprolol succinate 50 mg 50 mg PO DAILY #30 tabs 10/12/21 tablet,extended release 24 hr (Toprol XL) Allergies Allergy/AdvReac Type Severity Reaction Status Date / Time amoxicillin [AMOXICILLIN] Allergy Intermediate rash, Verified 06/04/22 15:01 rash/itching Sulfa (Sulfonamide Allergy Intermediate rash/itchin Verified 05/01/22 12:57 Antibiotics) g sulfamethoxazole Allergy Intermediate RASH Verified 05/01/22 12:57 [From BACTRIM] trimethoprim [From BACTRIM] Allergy Intermediate RASH Verified 05/01/22 12:57 hydrocodone [Hydrocodone] Allergy Mild ITCH Verified 05/01/22 12:57 ibuprofen [From Motrin] Allergy Mild UPSET Verified 05/01/22 12:57 STOMACH latex [Latex] Allergy Mild ITCH Verified 05/01/22 12:57 Review of Systems Review of Systems: Constitutional: No Fever, No Chills, + Fatigue, + Malaise ENT/Mouth: No Hearing loss, No Ear Pain, No Nasal Congestion, No Sinus Pain, No Hoarseness, No sore throat, No Rhinorrhea, No Swallowing Difficulty Eyes: No Eye Pain, No Swelling, No Redness, No Vision Changes Cardiovascular: + Chest Pain, No SOB, No Dyspnea on Exertion, No Orthopnea, No Edema, No Palpitations Respiratory: No Cough, No Sputum, No Dyspnea Gastrointestinal: + Nausea, No Vomiting, No Diarrhea, No Constipation, No Abdominal pain Genitourinary: No Dysuria, No Urinary Frequency, No Hematuria, No Urinary Incontinence/retention, No Urgency, No Flank Pain, No Urinary Flow Changes, No Hesitancy Musculoskeletal: No joint pain, + Myalgias, No Joint Swelling Skin: No Skin Lesions, No rash Neuro: No Weakness, No Numbness, No Paresthesias, No Dizziness, No Headache Psych: + Anxiety/Panic, No Depression Yes all other systems are reviewed and are negative Constitutional: Constitutional: Reports as per [facility] Past Medical History Attestation statement: The following information was validated with the patient. Medical History Anxiety Breast cancer H/O ETOH abuse History of COVID-19 History of low potassium Hypertension Panic attack Uncontrolled hypertension Surgical History H/O: hysterectomy History of breast lump/mass excision Hx of tubal ligation Family History Family History Mother Heart disease Alzheimers disease Social History Social History Household Members: Children Housing: House Do you presently have visiting nurse or other home services: No Alcohol intake: current Alcohol intake frequency: a few times a week Alcohol type: hard liquor Patient Tobacco Use Status: Current someday Tobacco user Tobacco use type: Cigarette Cigarettes Per Day: 10 Advance Directives: Yes Advance Directives on File: Yes Advance Directives Date on File: 02/11/22 service: No Current occupational status: unemployed Physical Exam Vital Signs: Vital Signs: Last Vital Signs Temp 97.6 F 06/04/22 15:01 Pulse 111 H 06/04/22 15:01 Resp 20 06/04/22 15:01 BP 128/90 H 06/04/22 15:01 Pulse Ox 98 06/04/22 15:01 O2 Del Method 06/04/22 15:01 BMI result Body Mass Index 28.1 Const: Other: + ETOH odor on breath General: cooperative and no acute distress Orientation/consciousness: patient oriented x3 Limitations: no limitations HEENT: Head: Yes normal to inspection and Yes atraumatic Ears: hearing grossly normal bilaterally General nose exam: Normal external nose present Face and sinus: Yes normal facial exam Eyes: General: appearance normal, both eyes and all related structures EOM: EOMs intact bilaterally Neck: Neck: Yes normal visual inspection and Yes no meningeal signs Resp: Effort & Inspection: normal respiratory effort and no respiratory distress Auscultation: clear to auscultation bilaterally, no crackles, no rales, no rhonchi and no wheezes Cardio: Rate: regular rate Heart sounds: S1 normal heart sound present and S2 normal heart sound present GI: Inspection: Yes normal to inspection Palpation (GI): Soft to palpation, nontender, no guarding and not rigid : General: Yes CVA tenderness on the left Back/Spine/Pelvis: Other: No midline thoracic/lumbar spinous tenderness/step-off or deformity. + left lower thoracic MSK tenderness. No erythema/ecchymosis Back: CVA tenderness Skin: Rashes: no rashes Wounds: no wounds Neuro: Other: Mildly tremulous General: patient oriented x3, tone normal and no meningeal signs Gait exam (Neuro): Normal gait present Extrem: General: Yes normal to inspection Course Course Course Narrative: 1800--XR chest 2V IMPRESSION: No acute intrathoracic disease -1830--no leukocytosis. Slight anion gap of 21 likely from chronic EtOH use/ketoacidosis. BENIGNO with a creatinine of 1.43 baseline of (0.7-0.8), and hypomagnesemic to 1.1 >> will give 2 L IVF and 2 g IV Mag sulfate -AST / ALT acute on chronically elevated likely from ETOH abuse and. Troponin elevated to 18.5, chronically elevated likely from renal dysfunction > will obtain 3 hour repeat > plan to admit for further management. Will initiate phenobarb protocol MDM - Anxiety MDM Narrative Medical decision making narrative: 46-year-old female with a past medical history anxiety, ETOH abuse, HTN, panic attacks, presenting to the ED complaining of increased anxiety times a couple days. Also reports intermittent chest tightness, nausea, & myalgias. Also reports chronic ETOH user. On exam initially tachycardic likely from anxiety, mildly tremulous on exam, abdomen is soft/nontender, left CVA/lower thoracic tenderness noted on exam. Concern for anxiety reaction vs ETOH withdrawal vs metabolic abnormality vs ? Renal stone/pyelo vs MSK pain. Lower suspicion for UTI. Symptoms atypical for ACS/PE being intermittent. Patient is not interested in detox at this time Plan: EKG, labs, CXR, UA, drug screen, ethanol, p.o. Ativan Medical Records Attestation: I reviewed the patient's medical records. Lab Data Attestation: I reviewed the patient's lab results. Result diagrams: 06/04/22 17:41 06/04/22 17:41 Labs: Lab Results 06/04/22 06/04/22 06/04/22 Range/Units 17:31 17:41 17:41 WBC 7.8 (4.8-10.8) X10*3/uL RBC 4.35 (4.20-5.50) X10*6/uL Hgb 13.0 (12.0-16.0) g/dl Hct 38.7 (37.0-47.0) % MCV 89.0 (80.0-98.0) fL MCH 29.9 (27.0-33.0) pg MCHC 33.6 (31.0-35.0) g/dl RDW 15.1 (11.0-16.0) % Plt Count 217 D (160-400) X10*3/uL MPV 10.1 (9.4-12.3) fL Immature Gran % (Auto) 0.4 (0.0-0.4) % Neut % (Auto) 66.4 (45-73) % Lymph % (Auto) 24.6 (20-40) % [place] % (Auto) 6.0 (2-11) % Eos % (Auto) 1.5 (0-4) % Baso % (Auto) 1.1 (0-2) % Lymph # (Auto) 1.9 (1.2-4.9) X10*3/uL [place] # (Auto) 0.5 (0.1-1.2) X10*3/uL Eos # (Auto) 0.1 (0.0-0.4) X10*3/uL Baso # (Auto) 0.1 (0.0-0.2) X10*3/uL Abs Immat Gran (auto) 0.03 (0.00-0.03) X10*3/uL Absolute Neuts (auto) 5.2 (2.0-8.3) x10*3/uL Absolute Nucleated RBC 0.020 H (0.0-0.012) X10*3/uL Nucleated RBC % (auto) 0.3 H (0.0-0.2) /100WBC Sodium 141 (135-145) mmol/L Potassium 3.5 (3.3-5.1) mmol/L Chloride 101 (96-108) mmol/L Carbon Dioxide 23 (22-29) mmol/L Anion Gap 21 H (12-20) BUN 10 (9-16) mg/dL Creatinine 1.43 H (0.5-1.4) mg/dL Estim Creat Clear Calc 52.9 Estimated GFR 39 Random Glucose 158 H (60-115) mg/dL Calcium 8.6 (8.4-10.2) mg/dL Magnesium 1.1 L* (1.6-2.6) mg/dL Total Bilirubin 0.9 (0.0-1.0) mg/dL Direct Bilirubin 0.4 (0.0-0.5) mg/dL AST 67 H (5-31) U/L ALT 46 H (0-31) U/L Alkaline Phosphatase 109 (39-117) U/L Troponin I High Sens (<3.5-17.0) ng/L Total Protein 7.2 (6.5-8.0) g/dL Albumin 4.1 (3.5-5.0) g/dL Lipase 67 (8-78) U/L Ethyl Alcohol < 10 mg/dL COVID-19 ([facility]) Negative (Negative) COVID-19 Clin Com See Note 06/04/22 Range/Units 17:41 WBC (4.8-10.8) X10*3/uL RBC (4.20-5.50) X10*6/uL Hgb (12.0-16.0) g/dl Hct (37.0-47.0) % MCV (80.0-98.0) fL MCH (27.0-33.0) pg MCHC (31.0-35.0) g/dl RDW (11.0-16.0) % Plt Count (160-400) X10*3/uL MPV (9.4-12.3) fL Immature Gran % (Auto) (0.0-0.4) % Neut % (Auto) (45-73) % Lymph % (Auto) (20-40) % [place] % (Auto) (2-11) % Eos % (Auto) (0-4) % Baso % (Auto) (0-2) % Lymph # (Auto) (1.2-4.9) X10*3/uL [place] # (Auto) (0.1-1.2) X10*3/uL Eos # (Auto) (0.0-0.4) X10*3/uL Baso # (Auto) (0.0-0.2) X10*3/uL Abs Immat Gran (auto) (0.00-0.03) X10*3/uL Absolute Neuts (auto) (2.0-8.3) x10*3/uL Absolute Nucleated RBC (0.0-0.012) X10*3/uL Nucleated RBC % (auto) (0.0-0.2) /100WBC Sodium (135-145) mmol/L Potassium (3.3-5.1) mmol/L Chloride (96-108) mmol/L Carbon Dioxide (22-29) mmol/L Anion Gap (12-20) BUN (9-16) mg/dL Creatinine (0.5-1.4) mg/dL Estim Creat Clear Calc Estimated GFR Random Glucose (60-115) mg/dL Calcium (8.4-10.2) mg/dL Magnesium (1.6-2.6) mg/dL Total Bilirubin (0.0-1.0) mg/dL Direct Bilirubin (0.0-0.5) mg/dL AST (5-31) U/L ALT (0-31) U/L Alkaline Phosphatase (39-117) U/L Troponin I High Sens 18.5 H (<3.5-17.0) ng/L Total Protein (6.5-8.0) g/dL Albumin (3.5-5.0) g/dL Lipase (8-78) U/L Ethyl Alcohol mg/dL COVID-19 ([facility]) (Negative) COVID-19 Clin Com Critical Care Time Critical Care Time Critical Care Time: Yes Total Critical Care Time: 40 Attestation: I have personally provided critical care time exclusive of time spent on separately billable procedures. Time includes review of lab data, radiology results, discussion with consultants, and monitoring for potential decompensation. Intervention performed as documented. Discharge Plan Discharge Clinical Impression: Alcohol withdrawal, BENIGNO (acute kidney injury), Hypomagnesemia Patient Disposition: Admitted As Inpatient Prescriptions: No Action (DME) ACL defiance brace See Rx Instructions .ROUTE .MEDSUPPLY Qty: 1 0RF Rx Instructions: n/a ergocalciferol (vitamin D2) 1,250 mcg (50,000 unit) capsule 1 cap PO TU@0900 albuterol sulfate 90 mcg/actuation HFA aerosol inhaler 2 puff inhalation Q4-6H PRN (Reason: shortness of breath or wheezing) Qty: 8.5 0RF clonidine HCl 0.1 mg tablet 1 tab PO BEDTIME PRN (Reason: Anxiety) thiamine HCl (vitamin B1) 100 mg tablet 1 tab PO DAILY acetaminophen 500 mg tablet 1 tab PO Q6H PRN (Reason: Pain (Scale Score 1-3)) lidocaine 5 % adhesive patch,medicated 1 patch topical DAILY PRN (Reason: Pain (Scale Score 1-3)) omeprazole 20 mg capsule,delayed release(DR/EC) 1 cap PO DAILY@0630 folic acid 1 mg tablet 1 tab PO DAILY loratadine 10 mg tablet 1 tab PO DAILY magnesium oxide 400 mg (241.3 mg magnesium) Tablet 400 mg PO BIDPC 30 Days Qty: 60 0RF chlordiazepoxide HCl 25 mg capsule 25 mg PO BID PRN (Reason: anxiety) Qty: 20 0RF metoprolol succinate [Toprol XL] 50 mg tablet extended release 24 hr 50 mg PO DAILY Qty: 30 0RF oxycodone-acetaminophen 5-325 mg tablet 1 tab PO Q6H PRN (Reason: pain) Qty: 5 0RF oxycodone-acetaminophen 5-325 mg tablet 1 tab PO Q6H PRN (Reason: pain) Qty: 5 0RF Rx Instructions: Partial Fill upon patient request. lisinopril 40 mg tablet 40 mg PO QAM spironolactone 25 mg tablet 25 mg PO QAM hydralazine 25 mg tablet 25 mg PO BID prazosin 1 mg capsule 1 mg PO BEDTIME
[2022-06-04 18:01] LABS: COVID-19 Test Negative (Negative)
[2022-06-04 18:22] LABS: Alanine Aminotransferase 46 U/L (0-31); Albumin Level 4.1 g/dL (3.5-5.0); Alkaline Phosphatase 109 U/L (39-117); Anion Gap 21 (12-20); Aspartate Amino Transferase 67 U/L (5-31); Bilirubin Direct 0.4 mg/dL (0.0-0.5); Bilirubin Total 0.9 mg/dL (0.0-1.0); Blood Urea Nitrogen 10 mg/dL (9-16); Calcium 8.6 mg/dL (8.4-10.2); Carbon Dioxide 23 mmol/L (22-29); Chloride 101 mmol/L (96-108); Creatinine Clr Calc Pharmacy 52.9; Estimated Glomerular Filt Rate 39; Ethanol < 10 mg/dL; Glucose Random 158 mg/dL (60-115); Lipase 67 U/L (8-78); Magnesium 1.1 mg/dL (1.6-2.6); Potassium 3.5 mmol/L (3.3-5.1); Sodium 141 mmol/L (135-145); Total Protein 7.2 g/dL (6.5-8.0)
[2022-06-04 18:24] LABS: Troponin-I High Sensitivity 18.5 ng/L (<3.5-17.0)
[2022-06-04] MEDS: Magnesium Sulfate/H2O 2 GM/50 ML PIGGYBACK IV (18:39)
[2022-06-04 18:42] LABS: Appearance Urine HAZY; Color Urine DK YELLOW; Glucose Urine UA NEG (NEG); Leukocyte Esterase Urine NEG (NEG); Nitrite Urine NEG (NEG); Specific Gravity - Urine >= 1.030 (1.005-1.025); UACC Culture Trigger NO; Urine Blood NEG (NEG); Urine Ketones 5 MG/DL (NEG); Urine Protein 1+ MG/DL (NEG-TRACE)
[2022-06-04 19:06] LABS: Bacteria Urine 3+ /LPF; Mucus Urine 3+ /LPF; Squamous Epithelial Cell Urine 2+ /LPF
[2022-06-04 19:07] LABS: Granular Casts Urine 0-2 /LPF
[2022-06-04 19:21] LABS: Amphetamine Screen Urine Not Detected (Not Detect); Barbiturates, Urine Not Detected (Not Detect); Benzodiazepines Screen Urine Not Detected (Not Detect); Cannabinoid Screen Urine Not Detected (Not Detect); Cocaine Screen Urine Not Detected (Not Detect); Fentanyl, urine POSITIVE (Not Detect); Opiate Screen Urine Not Detected (Not Detect); Phencyclidine Screen Urine Not Detected (Not Detect)
--- NOTE | 2022-06-04 19:38 | PHA.MEDREC ---
Pharmacy Consult ? Medication Reconciliation Pharmacy has completed the medication reconciliation.
[2022-06-04] MEDS: PHENobarbitaL 200 MG PO ONCE 250 MG PO (19:40)
[2022-06-04] MEDS: Famotidine 20 MG TABLET PO (19:41)
[2022-06-04 20:16] LABS: Troponin-I High Sensitivity 16.1 ng/L (<3.5-17.0)
--- NOTE | 2022-06-04 21:43 | P.HPHOSP_ITS ---
History of Present Illness Date of Service: 06/04/22 Chief Complaint: chest pain 46-year-old female with a past medical history of hypertension, anxiety, history of panic attacks, alcohol abuse, history of COVID-19 infection, breast cancer presented to the hospital today with a chief complaint of chest pain. Patient reported that for the past few days she has been having intermittent episodes of chest pain, also complains of tingling in his legs bilaterally, headaches; reports she feels like she is having panic attacks. Mentions that she has been drinking alcohol, about 2 L of hard liquor every day; has been trying to cut down; last drink was 2 days ago. Denies any prior history of alcohol withdrawal seizures/ delirium tremens. Denies any fever chills cough. Denies any nausea vomiting or diarrhea. At the time of entry patient reports that chest pain has been improving. Review of all other systems is negative except mentioned above ER course: Per ER team patient EKG was nonischemic, troponin was indeterminate; noted to be tremulous and tachycardic; started on phenobarb protocol for possible alcohol withdrawal. On labs noted to have hypomagnesemia- repleted. Admitted for further management. [facility] Medical History Anxiety Breast cancer H/O ETOH abuse History of COVID-19 History of low potassium Hypertension Panic attack Uncontrolled hypertension Family History Mother Heart disease Alzheimers disease Surgical History H/O: hysterectomy History of breast lump/mass excision Hx of tubal ligation Social History Household Members: None Housing: Apartment Do you presently have visiting nurse or other home services: No Alcohol intake: current Alcohol intake frequency: a few times a week Alcohol type: hard liquor Patient Tobacco Use Status: Current someday Tobacco user Tobacco use type: Cigarette Cigarettes Per Day: 10 Advance Directives Date on File: 02/11/22 service: No Current occupational status: disabled Meds Allergies Allergy/AdvReac Type Severity Reaction Status Date / Time amoxicillin [AMOXICILLIN] Allergy Intermediate rash, Verified 06/04/22 15:01 rash/itching Sulfa (Sulfonamide Allergy Intermediate rash/itchin Verified 05/01/22 12:57 Antibiotics) g sulfamethoxazole Allergy Intermediate RASH Verified 05/01/22 12:57 [From BACTRIM] trimethoprim [From BACTRIM] Allergy Intermediate RASH Verified 05/01/22 12:57 hydrocodone [Hydrocodone] Allergy Mild ITCH Verified 05/01/22 12:57 ibuprofen [From Motrin] Allergy Mild UPSET Verified 05/01/22 12:57 STOMACH latex [Latex] Allergy Mild ITCH Verified 05/01/22 12:57 Active Medications: Current Medications Acetaminophen (Acetaminophen 325 Mg Tablet) 650 mg PO Q6H PRN PRN Reason: Pain, Mild (Pain Scale 1-3) Enoxaparin Sodium (Enoxaparin Sodium 40 Mg/0.4 Ml Syringe) 40 mg SUBCUT Q24H [facility] Famotidine (Famotidine 20 Mg Tablet) 20 mg PO BID [facility] Last Admin: 06/04/22 19:41 Dose: 20 mg Folic Acid (Folic Acid 1 Mg Tablet) 1 mg PO DAILY [facility] Stop: 06/08/22 08:59 Melatonin (Melatonin 3 Mg Tablet) 6 mg PO BEDTIME PRN PRN Reason: Insomnia Multivitamins/Vitamin C (Multivitamin Tablet) 1 tab PO DAILY [facility] Stop: 06/08/22 08:59 Pharmacy Consult (Consult Rx Perform Med Rec) 1 each MISCELLANE ONCE PRN PRN Reason: Consult order Pharmacy Consult (Consult Rx Etoh Phenob Po Only) 1 each MISCELLANE ONCE PRN; Protocol PRN Reason: Consult order Phenobarbital 100 mg/ (Phenobarbital 90 mg) 190 mg PO Q3H [facility]; Protocol Stop: 06/05/22 01:01 Phenobarbital (Phenobarbital 15 Mg Tablet) 45 mg PO BID [facility]; Protocol Stop: 06/06/22 21:01 Phenobarbital (Phenobarbital 30 Mg Tablet) 30 mg PO BID [facility]; Protocol Stop: 06/08/22 21:01 Phenobarbital (Phenobarbital 30 Mg Tablet) 30 mg PO DAILY [facility]; Protocol Stop: 06/10/22 09:01 Senna (Sennosides 8.6 Mg Tablet) 17.2 mg PO BEDTIME PRN PRN Reason: Constipation Sodium Chloride (0.9 % Sodium Chloride Flush 3 Ml Syringe) 3 ml IVFLUSH QSHIFT [facility] Thiamine HCl (Thiamine Hcl 100 Mg Tablet) 100 mg PO DAILY [facility] Stop: 06/08/22 08:59 Home Medications Medication Instructions Recorded Confirmed Last Taken Type folic acid 1 mg tablet 1 tab PO DAILY 09/30/21 06/04/22 06/04/22 History loratadine 10 mg tablet 1 tab PO DAILY 09/30/21 06/04/22 06/04/22 History omeprazole 20 mg capsule,delayed 1 cap PO DAILY@0630 09/30/21 06/04/22 06/04/22 History release thiamine HCl (vitamin B1) 100 mg 1 tab PO DAILY 09/30/21 06/04/22 09/30/21 Histo ry tablet lisinopril 40 mg tablet 40 mg PO QAM 10/15/21 06/04/22 06/04/22 History acetaminophen 500 mg tablet 1 tab PO Q6-8H PRN fever 06/04/22 06/04/22 Unknown History aspirin 81 mg tablet,delayed 1 tab PO QAM 06/04/22 06/04/22 06/04/22 History release carvedilol 3.125 mg tablet 1 tab PO BID 06/04/22 06/04/22 06/04/22 History chlorthalidone 25 mg tablet 1 tab PO DAILY 06/04/22 06/04/22 06/04/22 History cholecalciferol (vitamin D3) 25 1 cap PO QAM 06/04/22 06/04/22 06/04/22 History mcg (1,000 unit) capsule (Vitamin D3) docusate sodium 100 mg capsule 1 cap PO BID PRN Constipation 06/04/22 06/04/22 Unknown History duloxetine 20 mg capsule,delayed 1 cap PO DAILY 06/04/22 06/04/22 06/04/22 History release multivitamin-ferrous 1 tab PO DAILY 06/04/22 06/04/22 06/04/22 History fumarate-folic acid 18 mg-400 mcg tablet (Certavite-Antioxidant) ropinirole 0.25 mg tablet 1 tab PO BEDTIME 06/04/22 06/04/22 06/03/22 History simvastatin 10 mg tablet 1 tab PO BEDTIME 06/04/22 06/04/22 06/03/22 History Physical Exam Vital Signs and Narrative: Vital Signs: Last Vital Signs Temp 97.6 F 06/04/22 15:01 Pulse 111 H 06/04/22 15:01 Resp 20 06/04/22 15:01 BP 128/90 H 06/04/22 15:01 Pulse Ox 98 06/04/22 15:01 O2 Del Method 06/04/22 15:01 BMI result Body Mass Index 28.1 Gen: Appears be in no acute distress HEENT: NCAT, Moist mucosa. Pulmonary: Vesicular breath sounds, fair air entry CVS: Normal S1-S2 Abdomen: BS+, Soft, Nontender Extremities: Warm well perfused Neuro: Alert and awake. Results Labs CBC and Chem 7: 06/06/22 06:01 06/06/22 06:01 Labs: Laboratory Results - last 24 hr 06/04/22 06/04/22 06/04/22 17:31 17:41 17:41 MCV 89.0 MCH 29.9 MCHC 33.6 RDW 15.1 Plt Count 217 D MPV 10.1 Immature Gran % (Auto) 0.4 Neut % (Auto) 66.4 Lymph % (Auto) 24.6 [place] % (Auto) 6.0 Eos % (Auto) 1.5 Baso % (Auto) 1.1 Lymph # (Auto) 1.9 [place] # (Auto) 0.5 Eos # (Auto) 0.1 Baso # (Auto) 0.1 Abs Immat Gran (auto) 0.03 Absolute Neuts (auto) 5.2 Absolute Nucleated RBC 0.020 H Nucleated RBC % (auto) 0.3 H Anion Gap 21 H Estim Creat Clear Calc 52.9 Estimated GFR 39 Random Glucose 158 H Calcium 8.6 Magnesium 1.1 L* Total Bilirubin 0.9 Direct Bilirubin 0.4 AST 67 H ALT 46 H Alkaline Phosphatase 109 Total Protein 7.2 Albumin 4.1 Lipase 67 Urine Color Urine Appearance Urine pH Ur Specific [place] Urine Protein Urine Glucose (UA) Urine Ketones Urine Blood Urine Nitrite Ur Leukocyte Esterase Urine RBC Urine WBC Ur Squamous Epith Cells Urine Bacteria Hyaline Casts Granular Casts Urine Mucus Urine Opiates Screen Urine Fentanyl Screen Ur Barbiturates Screen Ur Phencyclidine Scrn Ur Amphetamines Screen U Benzodiazepines Scrn Urine Cocaine Screen U Marijuana (THC) Screen Ethyl Alcohol < 10 COVID-19 ([facility]) Negative COVID-19 Clin Com See Note 06/04/22 06/04/22 18:33 18:33 MCV MCH MCHC RDW Plt Count MPV Immature Gran % (Auto) Neut % (Auto) Lymph % (Auto) [place] % (Auto) Eos % (Auto) Baso % (Auto) Lymph # (Auto) [place] # (Auto) Eos # (Auto) Baso # (Auto) Abs Immat Gran (auto) Absolute Neuts (auto) Absolute Nucleated RBC Nucleated RBC % (auto) Anion Gap Estim Creat Clear Calc Estimated GFR Random Glucose Calcium Magnesium Total Bilirubin Direct Bilirubin AST ALT Alkaline Phosphatase Total Protein Albumin Lipase Urine Color DK YELLOW Urine Appearance HAZY Urine pH 6.0 Ur Specific [place] >= 1.030 H Urine Protein 1+ H Urine Glucose (UA) NEG Urine Ketones 5 Urine Blood NEG Urine Nitrite NEG Ur Leukocyte Esterase NEG Urine RBC 1-4 Urine WBC 1-4 Ur Squamous Epith Cells 2+ Urine Bacteria 3+ Hyaline Casts 5-9 Granular Casts 0-2 Urine Mucus 3+ Urine Opiates Screen Not Detected Urine Fentanyl Screen POSITIVE H Ur Barbiturates Screen Not Detected Ur Phencyclidine Scrn Not Detected Ur Amphetamines Screen Not Detected U Benzodiazepines Scrn Not Detected Urine Cocaine Screen Not Detected U Marijuana (THC) Screen Not Detected Ethyl Alcohol COVID-19 ([facility]) COVID-19 Clin Com Imaging Radiologist's Impressions: Impressions Chest X-Ray 06/04/22 17:04 IMPRESSION: No acute intrathoracic disease Assessment and Plan (1) Chest pain: Status: Acute Plan 46-year-old female with a past medical history of hypertension, anxiety, history of panic attacks, alcohol abuse, history of COVID-19 infection, breast cancer presented to the hospital today with a chief complaint of chest pain. Admitted for following Chest pain: Atypical in nature EKG nonischemic Initial troponin 18-repeat pending Monitor on telemetry Aspirin 81 mg Alcohol abuse/ withdrawal: Monitor on CIWA protocol. Patient was started on phe nobarbital. Thiamine folate and multivitamins. 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 hypomagnesemia: Likely in setting of poor oral intake. Patient on magnesium supplementation at home. Magnesium has been repleted in the ER. History of hypertension: Continue home carvedilol, lisinopril, chlorthalidone History of hyperlipidemia: Continue home statin DVT prophylaxis: Lovenox Code status: Full code Quality Stroke Does the patient have a stroke diagnosis?: No VTE Prior VTE?: No VTE Risk Level:: Medical - moderate - high VTE Device Contraindication: Treatment Not Indicated VTE Drug Contraindication: N/A - Med Ordered
[2022-06-04 22:06] LABS: Troponin-I High Sensitivity 16.8 ng/L (<3.5-17.0)
[2022-06-04] MEDS: Enoxaparin Sodium 40 MG/0.4 ML SYRINGE SUBCUT (22:43)
[2022-06-04 22:45] VITALS: BP 122/88; PULSE 102; RESP 18; O2SAT 99
--- NOTE | 2022-06-04 22:51 | PC.NURSE ---
pt resting comfortably, a&ox3, vss, medicated per provider order.
--- NOTE | 2022-06-05 02:27 | PC.NURSE ---
medicated per provider order.
[2022-06-05 02:48] VITALS: BP 133/83; PULSE 102; RESP 27; TEMP 36.8; O2SAT 97
[2022-06-05 05:14] VITALS: BP 155/99; PULSE 92; RESP 16; TEMP 36.8; O2SAT 98
[2022-06-05 06:14] LABS: MANUAL DIFF FLAG NO
[2022-06-05 06:18] LABS: Basophils Absolute Auto 0.1 X10*3/uL (0.0-0.2); Eosinophils Absolute Auto 0.1 X10*3/uL (0.0-0.4); Eosinophils Percent Auto 2.7 % (0-4); Hematocrit 33.4 % (37.0-47.0); Hemoglobin 11.3 g/dl (12.0-16.0); Imm Gran Abs Auto 0.04 X10*3/uL (0.00-0.03); Imm Gran Pct Auto 0.8 % (0.0-0.4); Lymphocytes Percent Auto 38.8 % (20-40); Mean Corpuscular HGB Conc 33.8 g/dl (31.0-35.0); Mean Corpuscular Hemoglobin 30.6 pg (27.0-33.0); Mean Corpuscular Volume 90.5 fL (80.0-98.0); Mean Platelet Volume 9.8 fL (9.4-12.3); Monocytes Absolute Auto 0.4 X10*3/uL (0.1-1.2); Monocytes Percent Auto 6.9 % (2-11); Neutrophils Absolute Auto 2.6 x10*3/uL (2.0-8.3); Neutrophils Percent Auto 49.8 % (45-73); Platelet Count 165 X10*3/uL (160-400); Red Blood Count 3.69 X10*6/uL (4.20-5.50); White Blood Count 5.2 X10*3/uL (4.8-10.8)
[2022-06-05 06:38] LABS: Anion Gap 14 (12-20); Blood Urea Nitrogen 13 mg/dL (9-16); Calcium 7.6 mg/dL (8.4-10.2); Carbon Dioxide 23 mmol/L (22-29); Chloride 104 mmol/L (96-108); Creatinine Clr Calc Pharmacy 66.3; Estimated Glomerular Filt Rate 51; Glucose Random 133 mg/dL (60-115); Potassium 2.9 mmol/L (3.3-5.1); Sodium 138 mmol/L (135-145)
[2022-06-05] MEDS: Omeprazole 20 MG CAPSULE.DR PO (06:47)
[2022-06-05] MEDS: Potassium Chloride ER 20 MEQ TAB.ER.PRT 40 MEQ PO (07:36)
[2022-06-05] MEDS: Magnesium Oxide 400 MG TABLET PO ×2 (07:37→17:27)
--- NOTE | 2022-06-05 09:30 | MHC.CM.PN ---
Patient lives alone in an apartment;her Boyfriend sometimes stays with her. Home no services vs Care Tram Interventions R/T Etoh appears to be the tentative dc plan and CM has initiated and will follow for dc planning. Patient has received Covid/J&J vax only and her PCP is Dr. Shereen Latham.
--- NOTE | 2022-06-05 09:33 | HO.PM.IMPN ---
Subjective Subjective Date of Service: 06/05/22 Interval History: cc: weakness, anxiety interval history:improved Cardiovascular Cardiovascular: Reports no additional cardiovascular complaints Respiratory Respiratory: Reports no additional respiratory complaints Physical Exam Vital Signs: Vital Signs: Last Vital Signs Temp 98.2 F 06/05/22 05:14 Pulse 92 06/05/22 05:14 Resp 16 06/05/22 05:14 BP 155/99 H 06/05/22 05:14 Pulse Ox 98 06/05/22 05:14 O2 Del Method 06/05/22 05:14 BMI result Body Mass Index 28.1 General: AO X 3, no acute distress Resp: CTA bilateral, no accessory muscles used CVS: S1,S2,RRR GI: soft, non tender, non distended Neuro: motor grossly intact, alert Psych: appropriate affect, appropriate insight Objective Data Active Medications Acetaminophen (Acetaminophen 325 Mg Tablet) 650 mg PO Q6H PRN PRN Reason: Pain, Mild (Pain Scale 1-3) Albuterol Sulfate (Albuterol Sulfate 90 Mcg 8 Gm Inhaler) 2 puff INHALE Q4H PRN PRN Reason: shortness of breath or wheezing Aspirin (Aspirin Enteric Coated 81 Mg Tablet.) 81 mg PO DAILY [facility] Atorvastatin Calcium (Atorvastatin Calcium 10 Mg Tablet) 10 mg PO BEDTIME [facility] Carvedilol (Carvedilol 3.125 Mg Tablet) 3.125 mg PO BID [facility]; Protocol Docusate Sodium (Docusate Sodium 100 Mg Capsule) 100 mg PO BID PRN PRN Reason: Constipation Duloxetine HCl (Duloxetine Hcl 20 Mg Capsule.) 20 mg PO DAILY [facility] Enoxaparin Sodium (Enoxaparin Sodium 40 Mg/0.4 Ml Syringe) 40 mg SUBCUT Q24H [facility] Last Admin: 06/04/22 22:43 Dose: 40 mg Documented By: JULIO Famotidine (Famotidine 20 Mg Tablet) 20 mg PO BID [facility] Last Admin: 06/04/22 19:41 Dose: 20 mg Documented By: JAYSON Folic Acid (Folic Acid 1 Mg Tablet) 1 mg PO DAILY [facility] Stop: 06/08/22 08:59 Folic Acid (Folic Acid 1 Mg Tablet) 1 mg PO DAILY [facility] Hydrochlorothiazide (Hydrochlorothiazide 25 Mg Tablet) 25 mg PO DAILY [facility] Lisinopril (Lisinopril 40 Mg Tablet) 40 mg PO DAILY [facility]; Protocol Loratadine (Loratadine 10 Mg Tablet) 10 mg PO DAILY [facility] Magnesium Oxide (Magnesium Oxide 400 Mg Tablet) [facility] Last Admin: 06/05/22 07:37 Dose: 400 mg Documented By: BARRON Melatonin (Melatonin 3 Mg Tablet) 6 mg PO BEDTIME PRN PRN Reason: Insomnia Multivitamins/Vitamin C (Multivitamin Tablet) 1 tab PO DAILY [facility] Stop: 06/08/22 08:59 Multivitamins/Vitamin C (Multivitamin Tablet) 1 tab PO DAILY [facility] Omeprazole (Omeprazole 20 Mg Capsule.) 20 mg PO DAILY@0630 [facility] Last Admin: 06/05/22 06:47 Dose: 20 mg Documented By: RAMONA Pharmacy Consult (Consult Rx Perform Med Rec) 1 each MISCELLANE ONCE PRN PRN Reason: Consult order Pharmacy Consult (Consult Rx Etoh Phenob Po Only) 1 each MISCELLANE ONCE PRN; Protocol PRN Reason: Consult order Phenobarbital (Phenobarbital 15 Mg Tablet) 45 mg PO BID [facility]; Protocol Stop: 06/06/22 21:01 Phenobarbital (Phenobarbital 30 Mg Tablet) 30 mg PO BID [facility]; Protocol Stop: 06/08/22 21:01 Phenobarbital (Phenobarbital 30 Mg Tablet) 30 mg PO DAILY [facility]; Protocol Stop: 06/10/22 09:01 Ropinirole HCl (Ropinirole Hcl 0.25 Mg Tablet) 0.25 mg PO BEDTIME [facility] Senna (Sennosides 8.6 Mg Tablet) 17.2 mg PO BEDTIME PRN PRN Reason: Constipation Sodium Chloride (0.9 % Sodium Chloride Flush 3 Ml Syringe) 3 ml IVFLUSH QSHIFT [facility] Last Admin: 06/05/22 00:11 Dose: Not Given Documented By: JULIO Non-Admin Reason: Patient Asleep Thiamine HCl (Thiamine Hcl 100 Mg Tablet) 100 mg PO DAILY [facility] Stop: 06/08/22 08:59 Thiamine HCl (Thiamine Hcl 100 Mg Tablet) 100 mg PO DAILY [facility] Vitamin D (Cholecalciferol (Vitamin D3) 25 Mcg Tablet) 25 mcg PO DAILY [facility] Labs CBC & Chem 7: 06/05/22 06:09 06/05/22 06:09 Labs: Laboratory Results - last 24 hr 08/03/22 08/03/22 08/03/22 17:31 17:41 17:41 MCV 89.0 MCH 29.9 MCHC 33.6 RDW 15.1 Plt Count 217 D MPV 10.1 Immature Gran % (Auto) 0.4 Neut % (Auto) 66.4 Lymph % (Auto) 24.6 [place] % (Auto) 6.0 Eos % (Auto) 1.5 Baso % (Auto) 1.1 Lymph # (Auto) 1.9 [place] # (Auto) 0.5 Eos # (Auto) 0.1 Baso # (Auto) 0.1 Abs Immat Gran (auto) 0.03 Absolute Neuts (auto) 5.2 Absolute Nucleated RBC 0.020 H Nucleated RBC % (auto) 0.3 H Anion Gap 21 H Estim Creat Clear Calc 52.9 Estimated GFR 39 Random Glucose 158 H Calcium 8.6 Magnesium 1.1 L* Total Bilirubin 0.9 Direct Bilirubin 0.4 AST 67 H ALT 46 H Alkaline Phosphatase 109 Total Protein 7.2 Albumin 4.1 Lipase 67 Urine Color Urine Appearance Urine pH Ur Specific [place] Urine Protein Urine Glucose (UA) Urine Ketones Urine Blood Urine Nitrite Ur Leukocyte Esterase Urine RBC Urine WBC Ur Squamous Epith Cells Urine Bacteria Hyaline Casts Granular Casts Urine Mucus Urine Opiates Screen Urine Fentanyl Screen Ur Barbiturates Screen Ur Phencyclidine Scrn Ur Amphetamines Screen U Benzodiazepines Scrn Urine Cocaine Screen U Marijuana (THC) Screen Ethyl Alcohol < 10 COVID-19 ([facility]) Negative COVID-19 Clin Com See Note 06/04/22 06/04/22 06/05/22 18:33 18:33 06:09 MCV 90.5 MCH 30.6 MCHC 33.8 RDW 15.0 Plt Count 165 MPV 9.8 Immature Gran % (Auto) 0.8 H Neut % (Auto) 49.8 Lymph % (Auto) 38.8 [place] % (Auto) 6.9 Eos % (Auto) 2.7 Baso % (Auto) 1.0 Lymph # (Auto) 2.0 [place] # (Auto) 0.4 Eos # (Auto) 0.1 Baso # (Auto) 0.1 Abs Immat Gran (auto) 0.04 H Absolute Neuts (auto) 2.6 Absolute Nucleated RBC 0.000 Nucleated RBC % (auto) 0.0 Anion Gap Estim Creat Clear Calc Estimated GFR Random Glucose Calcium Magnesium Total Bilirubin Direct Bilirubin AST ALT Alkaline Phosphatase Total Protein Albumin Lipase Urine Color DK YELLOW Urine Appearance HAZY Urine pH 6.0 Ur Specific [place] >= 1.030 H Urine Protein 1+ H Urine Glucose (UA) NEG Urine Ketones 5 Urine Blood NEG Urine Nitrite NEG Ur Leukocyte Esterase NEG Urine RBC 1-4 Urine WBC 1-4 Ur Squamous Epith Cells 2+ Urine Bacteria 3+ Hyaline Casts 5-9 Granular Casts 0-2 Urine Mucus 3+ Urine Opiates Screen Not Detected Urine Fentanyl Screen POSITIVE H Ur Barbiturates Screen Not Detected Ur Phencyclidine Scrn Not Detected Ur Amphetamines Screen Not Detected U Benzodiazepines Scrn Not Detected Urine Cocaine Screen Not Detected U Marijuana (THC) Screen Not Detected Ethyl Alcohol COVID-19 ([facility]) COVID-19 Clin Com 06/05/22 06:09 MCV MCH MCHC RDW Plt Count MPV Immature Gran % (Auto) Neut % (Auto) Lymph % (Auto) [place] % (Auto) Eos % (Auto) Baso % (Auto) Lymph # (Auto) [place] # (Auto) Eos # (Auto) Baso # (Auto) Abs Immat Gran (auto) Absolute Neuts (auto) Absolute Nucleated RBC Nucleated RBC % (auto) Anion Gap 14 Estim Creat Clear Calc 66.3 Estimated GFR 51 Random Glucose 133 H Calcium 7.6 L D Magnesium Total Bilirubin Direct Bilirubin AST ALT Alkaline Phosphatase Total Protein Albumin Lipase Urine Color Urine Appearance Urine pH Ur Specific [place] Urine Protein Urine Glucose (UA) Urine Ketones Urine Blood Urine Nitrite Ur Leukocyte Esterase Urine RBC Urine WBC Ur Squamous Epith Cells Urine Bacteria Hyaline Casts Granular Casts Urine Mucus Urine Opiates Screen Urine Fentanyl Screen Ur Barbiturates Screen Ur Phencyclidine Scrn Ur Amphetamines Screen U Benzodiazepines Scrn Urine Cocaine Screen U Marijuana (THC) Screen Ethyl Alcohol COVID-19 ([facility]) COVID-19 Clin Com Assessment and Plan (1) Alcohol withdrawal: Status: Acute Plan 45F presented with chest pain and withdrawal symptoms chest pain troponins negative, ekg unremarkable likely due to withdrawal alcohol dependence with withdrawal pheonarbital protocol ciwa hypomagnesemia and hypokalemia due to alcohol related magnesuria replace and monitor BENIGNO resolved htn coreg, lisinopril dvt prophylaxis - lovenox full code reason for continued hospitalization: significant electrolyte abnormalities, (low k and low mag), withdrawal symptoms ongoing Quality Stroke Does the patient have a stroke diagnosis?: No VTE Prior VTE?: No VTE Risk Level:: Medical - moderate - high VTE Device Contraindication: Treatment Not Indicated VTE Drug Contraindication: N/A - Med Ordered
[2022-06-05 09:38] VITALS: BP 135/104; PULSE 97; RESP 20; TEMP 36.6; O2SAT 99
[2022-06-05] MEDS: 0.9 % Sodium Chloride Flush 3 ML SYRINGE IVFLUSH ×3 (09:40→20:09)
[2022-06-05] MEDS: PHENobarbitaL 15 MG TABLET 45 MG PO ×2 (09:40→20:03)
[2022-06-05] MEDS: lisinopriL 40 MG TABLET PO (09:41)
[2022-06-05] MEDS: Thiamine HCL 100 MG TABLET PO (09:41)
[2022-06-05] MEDS: Multivitamin TABLET 1 TAB PO (09:41)
[2022-06-05] MEDS: DULoxetine HCl 20 MG CAPSULE.DR PO (09:41)
[2022-06-05] MEDS: Folic Acid 1 MG TABLET PO (09:42)
[2022-06-05] MEDS: Cholecalciferol (Vitamin D3) 25 MCG TABLET PO (09:42)
[2022-06-05] MEDS: carvediloL 3.125 MG TABLET PO ×2 (09:42→20:03)
[2022-06-05] MEDS: Aspirin Enteric Coated 81 MG TABLET.DR PO (09:42)
[2022-06-05 15:52] VITALS: BP 154/86; PULSE 89; RESP 18; TEMP 36.6; O2SAT 99
[2022-06-05 19:16] VITALS: BP 168/108; PULSE 106; RESP 18; TEMP 36.4; O2SAT 99
[2022-06-05] MEDS: Famotidine 20 MG TABLET PO (20:04)
[2022-06-05] MEDS: Atorvastatin Calcium 10 MG TABLET PO (20:04)
[2022-06-05] MEDS: rOPINIRole HCL 0.25 MG TABLET PO (20:04)
[2022-06-05] MEDS: Acetaminophen 325 MG TABLET 650 MG PO (20:07)
[2022-06-05] MEDS: Enoxaparin Sodium 40 MG/0.4 ML SYRINGE SUBCUT (22:07)
[2022-06-05 23:31] VITALS: BP 165/95; PULSE 95; RESP 18; TEMP 37.2; O2SAT 98
[2022-06-06] VITALS (7 sets, daily range): BP systolic 148–170; BP diastolic 88–112; PULSE 88–106; RESP 17–20; TEMP 36.7–37.1; O2SAT 96–99
[2022-06-06] MEDS: Omeprazole 20 MG CAPSULE.DR PO (05:55)
[2022-06-06 06:49] LABS: Hematocrit 33.4 % (37.0-47.0); Hemoglobin 11.4 g/dl (12.0-16.0); Mean Corpuscular HGB Conc 34.1 g/dl (31.0-35.0); Mean Corpuscular Hemoglobin 30.5 pg (27.0-33.0); Mean Corpuscular Volume 89.3 fL (80.0-98.0); Mean Platelet Volume 11.1 fL (9.4-12.3); Platelet Count 169 X10*3/uL (160-400); Red Blood Count 3.74 X10*6/uL (4.20-5.50); Red Cell Distribution Width 14.6 % (11.0-16.0); White Blood Count 6.4 X10*3/uL (4.8-10.8)
[2022-06-06 07:42] LABS: Anion Gap 13 (12-20); Blood Urea Nitrogen 13 mg/dL (9-16); Calcium 8.3 mg/dL (8.4-10.2); Carbon Dioxide 27 mmol/L (22-29); Chloride 100 mmol/L (96-108); Creatinine Clr Calc Pharmacy 99.5; Estimated Glomerular Filt Rate > 60; Glucose Fasting 115 mg/dL (60-99); Potassium 3.4 mmol/L (3.3-5.1); Sodium 137 mmol/L (135-145)
[2022-06-06 07:45] LABS: Magnesium 1.4 mg/dL (1.6-2.6)
[2022-06-06] MEDS: Famotidine 20 MG TABLET PO ×2 (10:07→21:58)
[2022-06-06] MEDS: Magnesium Oxide 400 MG TABLET PO ×2 (10:08→18:44)
[2022-06-06] MEDS: Cholecalciferol (Vitamin D3) 25 MCG TABLET PO (10:08)
[2022-06-06] MEDS: Thiamine HCL 100 MG TABLET PO (10:08)
[2022-06-06] MEDS: Loratadine 10 MG TABLET PO (10:08)
[2022-06-06] MEDS: Multivitamin TABLET 1 TAB PO (10:08)
[2022-06-06] MEDS: Folic Acid 1 MG TABLET PO (10:09)
[2022-06-06] MEDS: DULoxetine HCl 20 MG CAPSULE.DR PO (10:09)
[2022-06-06] MEDS: Aspirin Enteric Coated 81 MG TABLET.DR PO (10:09)
[2022-06-06] MEDS: Potassium Chloride ER 20 MEQ TAB.ER.PRT 40 MEQ PO (10:09)
[2022-06-06] MEDS: hydroCHLOROthiazide 25 MG TABLET PO (10:09)
[2022-06-06] MEDS: carvediloL 3.125 MG TABLET PO ×2 (10:09→21:58)
[2022-06-06] MEDS: lisinopriL 40 MG TABLET PO (10:09)
[2022-06-06] MEDS: PHENobarbitaL 15 MG TABLET 45 MG PO (10:10)
[2022-06-06] MEDS: 0.9 % Sodium Chloride Flush 3 ML SYRINGE IVFLUSH ×2 (10:13→18:40)
--- NOTE | 2022-06-06 11:40 | HO.PM.IMPN ---
Subjective Subjective Date of Service: 06/06/22 Interval History: cc: weakness, anxiety interval history:jittery Cardiovascular Cardiovascular: Reports no additional cardiovascular complaints Respiratory Respiratory: Reports no additional respiratory complaints Physical Exam Vital Signs: Vital Signs: Last Vital Signs Temp 98.4 F 06/06/22 11:28 Pulse 99 06/06/22 11:28 Resp 18 06/06/22 11:28 BP 170/108 H 06/06/22 11:28 Pulse Ox 99 06/06/22 11:28 O2 Del Method 06/06/22 11:28 BMI result Body Mass Index 28.1 General: AO X 3, no acute distress Resp: CTA bilateral, no accessory muscles used CVS: S1,S2,RRR GI: soft, non tender, non distended Neuro: motor grossly intact, alert, tremulous Psych: appropriate affect, appropriate insight Objective Data Active Medications Acetaminophen (Acetaminophen 325 Mg Tablet) 650 mg PO Q6H PRN PRN Reason: Pain, Mild (Pain Scale 1-3) Last Admin: 06/05/22 20:07 Dose: 650 mg Documented By: MARY Albuterol Sulfate (Albuterol Sulfate 90 Mcg 8 Gm Inhaler) 2 puff INHALE Q4H PRN PRN Reason: shortness of breath or wheezing Aspirin (Aspirin Enteric Coated 81 Mg Tablet.) 81 mg PO DAILY [facility] Last Admin: 06/06/22 10:09 Dose: 81 mg Documented By: CLARENCE Atorvastatin Calcium (Atorvastatin Calcium 10 Mg Tablet) 10 mg PO BEDTIME [facility] Last Admin: 06/05/22 20:04 Dose: 10 mg Documented By: MARY Carvedilol (Carvedilol 3.125 Mg Tablet) 3.125 mg PO BID [facility]; Protocol Last Admin: 06/06/22 10:09 Dose: 3.125 mg Documented By: CLARENCE Docusate Sodium (Docusate Sodium 100 Mg Capsule) 100 mg PO BID PRN PRN Reason: Constipation Duloxetine HCl (Duloxetine Hcl 20 Mg Capsule.) 20 mg PO DAILY [facility] Last Admin: 06/06/22 10:09 Dose: 20 mg Documented By: CLARENCE Enoxaparin Sodium (Enoxaparin Sodium 40 Mg/0.4 Ml Syringe) 40 mg SUBCUT Q24H [facility] Last Admin: 06/05/22 22:07 Dose: 40 mg Documented By: BELA Famotidine (Famotidine 20 Mg Tablet) 20 mg PO BID [facility] Last Admin: 06/06/22 10:07 Dose: 20 mg Documented By: CLARENCE Folic Acid (Folic Acid 1 Mg Tablet) 1 mg PO DAILY [facility] Stop: 06/08/22 08:59 Last Admin: 06/06/22 10:09 Dose: 1 mg Documented By: CLARENCE Hydrochlorothiazide (Hydrochlorothiazide 25 Mg Tablet) 25 mg PO DAILY [facility] Last Admin: 06/06/22 10:09 Dose: 25 mg Documented By: CLARENCE Lisinopril (Lisinopril 40 Mg Tablet) 40 mg PO DAILY [facility]; Protocol Last Admin: 06/06/22 10:09 Dose: 40 mg Documented By: CLARENCE Loratadine (Loratadine 10 Mg Tablet) 10 mg PO DAILY [facility] Last Admin: 06/06/22 10:08 Dose: 10 mg Documented By: CLARENCE Magn[facility]ide ([facility] 400 Mg [facility]t) [facility] Last Admin: 06/06/22 10:08 Dose: 400 mg Documented By: CLARENCE Melatonin (Melatonin 3 Mg Tablet) 6 mg PO BEDTIME PRN PRN Reason: Insomnia Multivitamins/Vitamin C (Multivitamin Tablet) 1 tab PO DAILY [facility] Stop: 06/08/22 08:59 Last Admin: 06/06/22 10:08 Dose: 1 tab Documented By: CLARENCE Omeprazole (Omeprazole 20 Mg Capsule.Dr) 20 mg PO DAILY@0630 [facility] Last Admin: 06/06/22 05:55 Dose: 20 mg Documented By: MARY Pharmacy Consult (Consult Rx Perform Med Rec) 1 each MISCELLANE ONCE PRN PRN Reason: Consult order Pharmacy Consult (Consult Rx Etoh Phenob Po Only) 1 each MISCELLANE ONCE PRN; Protocol PRN Reason: Consult order Phenobarbital (Phenobarbital 15 Mg Tablet) 45 mg PO BID [facility]; Protocol Stop: 06/06/22 21:01 Last Admin: 06/06/22 10:10 Dose: 45 mg Documented By: CLARENCE Phenobarbital (Phenobarbital 30 Mg Tablet) 30 mg PO BID [facility]; Protocol Stop: 06/08/22 21:01 Phenobarbital (Phenobarbital 30 Mg Tablet) 30 mg PO DAILY [facility]; Protocol Stop: 06/10/22 09:01 Ropinirole HCl (Ropinirole Hcl 0.25 Mg Tablet) 0.25 mg PO BEDTIME [facility] Last Admin: 06/05/22 20:04 Dose: 0.25 mg Documented By: MARY Senna (Sennosides 8.6 Mg Tablet) 17.2 mg PO BEDTIME PRN PRN Reason: Constipation Sodium Chloride (0.9 % Sodium Chloride Flush 3 Ml Syringe) 3 ml IVFLUSH QSHIFT [facility] Last Admin: 06/06/22 10:13 Dose: 3 ml Documented By: CLARENCE Thiamine HCl (Thiamine Hcl 100 Mg Tablet) 100 mg PO DAILY [facility] Stop: 06/08/22 08:59 Last Admin: 06/06/22 10:08 Dose: 100 mg Documented By: CLARENCE Vitamin D (Cholecalciferol (Vitamin D3) 25 Mcg Tablet) 25 mcg PO DAILY [facility] Last Admin: 06/06/22 10:08 Dose: 25 mcg Documented By: CLARENCE Labs CBC & Chem 7: 06/06/22 06:01 06/06/22 06:01 Labs: Laboratory Results - last 24 hr 06/06/22 06/06/22 06:01 06:01 MCV 89.3 MCH 30.5 MCHC 34.1 RDW 14.6 Plt Count 169 MPV 11.1 Absolute Nucleated RBC 0.000 Nucleated RBC % (auto) 0.0 Anion Gap 13 Estim Creat Clear Calc 99.5 Estimated GFR > 60 Fasting Glucose 115 H Calcium 8.3 L D Magnesium 1.4 L* Assessment and Plan (1) Alcohol withdrawal: Status: Acute Plan 45F presented with chest pain and withdrawal symptoms chest pain troponins negative, ekg unremarkable likely due to withdrawal alcohol dependence with withdrawal ongiong symptoms continue pheonarbital protocol ciwa hypomagnesemia and hypokalemia due to alcohol related magnesuria replace and monitor BENIGNO resolved htn coreg, lisinopril dvt prophylaxis - lovenox full code reason for continued hospitalization: significant electrolyte abnormalities, (low k and low mag), withdrawal symptoms ongoing Quality Stroke Does the patient have a stroke diagnosis?: No VTE Prior VTE?: No VTE Risk Level:: Medical - moderate - high VTE Device Contraindication: Treatment Not Indicated VTE Drug Contraindication: N/A - Med Ordered
--- NOTE | 2022-06-06 12:30 | PC.NURSE ---
BP 166/112 and 170/108. BP meds given as scheduled. Dr. Hernandez notified. No new orders. Will continue to monitor.
[2022-06-06] MEDS: ondansetron HCL 4 MG/2 ML VIAL IVPUSH (18:40)
[2022-06-06] MEDS: LORazepam 1 MG TABLET PO (20:40)
[2022-06-06] MEDS: Enoxaparin Sodium 40 MG/0.4 ML SYRINGE SUBCUT (21:58)
[2022-06-06] MEDS: rOPINIRole HCL 0.25 MG TABLET PO (21:58)
[2022-06-06] MEDS: Atorvastatin Calcium 10 MG TABLET PO (21:58)
[2022-06-07] MEDS: 0.9 % Sodium Chloride Flush 3 ML SYRINGE IVFLUSH ×2 (00:16→09:45)
[2022-06-07 04:00] VITALS: BP 142/96; PULSE 100; RESP 18; TEMP 36.9; O2SAT 98
[2022-06-07] MEDS: Omeprazole 20 MG CAPSULE.DR PO (05:59)
[2022-06-07 07:44] LABS: Hematocrit 34.1 % (37.0-47.0); Hemoglobin 11.5 g/dl (12.0-16.0); Mean Corpuscular HGB Conc 33.7 g/dl (31.0-35.0); Mean Corpuscular Hemoglobin 30.3 pg (27.0-33.0); Mean Corpuscular Volume 89.7 fL (80.0-98.0); Mean Platelet Volume 11.1 fL (9.4-12.3); NRBC Pct Auto 0.3 /100WBC (0.0-0.2); Platelet Count 177 X10*3/uL (160-400); White Blood Count 7.9 X10*3/uL (4.8-10.8)
[2022-06-07 08:00] VITALS: BP 145/99; PULSE 98; RESP 19; TEMP 36.7; O2SAT 96
[2022-06-07 08:42] LABS: Anion Gap 16 (12-20); Blood Urea Nitrogen 15 mg/dL (9-16); Calcium 8.4 mg/dL (8.4-10.2); Carbon Dioxide 25 mmol/L (22-29); Chloride 100 mmol/L (96-108); Creatinine Clr Calc Pharmacy 100.8; Estimated Glomerular Filt Rate > 60; Glucose Fasting 101 mg/dL (60-99); Potassium 3.7 mmol/L (3.3-5.1); Sodium 137 mmol/L (135-145)
[2022-06-07 08:43] LABS: Magnesium 1.4 mg/dL (1.6-2.6)
[2022-06-07] MEDS: Multivitamin TABLET 1 TAB PO (09:43)
[2022-06-07] MEDS: Aspirin Enteric Coated 81 MG TABLET.DR PO (09:43)
[2022-06-07] MEDS: Folic Acid 1 MG TABLET PO (09:43)
[2022-06-07] MEDS: lisinopriL 40 MG TABLET PO (09:43)
[2022-06-07] MEDS: Thiamine HCL 100 MG TABLET PO (09:44)
[2022-06-07] MEDS: Cholecalciferol (Vitamin D3) 25 MCG TABLET PO (09:44)
[2022-06-07] MEDS: carvediloL 3.125 MG TABLET PO (09:44)
[2022-06-07] MEDS: Famotidine 20 MG TABLET PO (09:44)
[2022-06-07] MEDS: DULoxetine HCl 20 MG CAPSULE.DR PO (09:44)
[2022-06-07] MEDS: Magnesium Oxide 400 MG TABLET PO (09:44)
[2022-06-07] MEDS: Loratadine 10 MG TABLET PO (09:44)
--- NOTE | 2022-06-07 10:22 | PM.DS ---
DS: Providers Provider Date of Service: 06/07/22 Date of admission: 06/04/22 19:10 Primary care physician: Shereen Latham MD DS: Diagnosis Discharge Diagnosis (1) Chest pain: Status: Acute DS: Summary Hospital Course Hospital Course: from initial hpi: Chief Complaint:? chest pain ?46-year-old female with a past medical history of hypertension, anxiety, history of panic attacks, alcohol abuse, history of COVID-19 infection, breast cancer presented to the hospital today with a chief complaint of chest pain.? Patient reported that for the past few days she has been having intermittent episodes of chest pain, also complains of tingling in his legs bilaterally, headaches; reports she feels like she is having panic attacks.? Mentions that she has been drinking alcohol, about 2 L of hard liquor every day; has been trying to cut down; last drink was 2 days ago. Denies any prior history of alcohol withdrawal seizures/ delirium tremens.? Denies any fever chills cough.? Denies any nausea vomiting or diarrhea.? At the time of entry patient reports that chest pain has been improving.? Review of all other systems is negative except mentioned above ER course: Per ER team patient EKG was nonischemic, troponin was indeterminate; noted to be tremulous and tachycardic; started on phenobarb protocol for possible alcohol withdrawal.? On labs noted to have hypomagnesemia- repleted.? Admitted for further management. hospital course: Patient was admitted for chest pain. Her troponins were negative. EKG was unremarkable. Was likely due to her withdrawal symptoms. She was also noted for alcohol dependence with withdrawal. She was given phenobarbital protocol and her symptoms improved. At time of discharge her CIWA score 0. She also had hypo magnesemia and hypokalemia, these were replaced, she will continue magnesium supplementation outpatient. On presentation patient also had acute kidney injury which resolved with IV hydration. For her hypertension she was continued on carvedilol and lisinopril. Patient is feeling better will be discharged home. Time Spent with Patient Time attestation: Total time spent providing and/or coordinating discharge services: Discharge coordination time: Greater than 30 minutes Quality: Safe Use of Opioids Does Pt have an Active Cancer Diagnosis on the Problem List?: No Quality: Stroke Does the patient have a stroke diagnosis?: No Physical Exam Vital Signs: Vital Signs: Last Vital Signs Temp 98.1 F 06/07/22 08:00 Pulse 98 06/07/22 08:00 Resp 19 06/07/22 08:00 BP 145/99 H 06/07/22 08:00 Pulse Ox 96 06/07/22 08:00 O2 Del Method 06/07/22 08:00 BMI result Body Mass Index 28.1 General: AO X 3, no acute distress Resp: CTA bilateral, no accessory muscles used CVS: S1,S2,RRR GI: soft, non tender, non distended Neuro: motor grossly intact, alert Psych: appropriate affect, appropriate insight DS: Data Data Completed and Pending Completed studies during hospitalization [Text1]: Procedures Detoxification Services for Substance Abuse Treatment (09/30/21) Labs on day of discharge: Laboratory Results - last 24 hr 06/07/22 06/07/22 06:39 06:39 WBC 7.9 RBC 3.80 L Hgb 11.5 L Hct 34.1 L MCV 89.7 MCH 30.3 MCHC 33.7 RDW 15.0 Plt Count 177 MPV 11.1 Absolute Nucleated RBC 0.020 H Nucleated RBC % (auto) 0.3 H Sodium 137 Potassium 3.7 Chloride 100 Carbon Dioxide 25 Anion Gap 16 BUN 15 Creatinine 0.75 Estim Creat Clear Calc 100.8 Estimated GFR > 60 Fasting Glucose 101 H Calcium 8.4 Magnesium 1.4 L* Discharge Plan Discharge Patient Disposition: Home, Self-Care Discharge Diagnosis: etoh withdrawal Referrals: Shereen Latham MD [Primary Care Provider] - 1 Week Discharge Medications: Continued (DME) ACL defiance brace See Rx Instructions .ROUTE .MEDSUPPLY Qty: 1 0RF Rx Instructions: n/a albuterol sulfate 90 mcg/actuation HFA aerosol inhaler 2 puff inhalation Q4-6H PRN (Reason: shortness of breath or wheezing) Qty: 8.5 0RF thiamine HCl (vitamin B1) 100 mg tablet 1 tab PO DAILY omeprazole 20 mg capsule,delayed release(DR/EC) 1 cap PO DAILY@0630 folic acid 1 mg tablet 1 tab PO DAILY loratadine 10 mg tablet 1 tab PO DAILY magnesium oxide 400 mg (241.3 mg magnesium) Tablet 400 mg PO BIDPC 30 Days Qty: 60 0RF simvastatin 10 mg tablet 1 tab PO BEDTIME chlorthalidone 25 mg tablet 1 tab PO DAILY aspirin 81 mg tablet,delayed release (DR/EC) 1 tab PO QAM carvedilol 3.125 mg tablet 1 tab PO BID ropinirole 0.25 mg tablet 1 tab PO BEDTIME docusate sodium 100 mg capsule 1 cap PO BID PRN (Reason: Constipation) cholecalciferol (vitamin D3) [Vitamin D3] 25 mcg (1,000 unit) capsule 1 cap PO QAM duloxetine 20 mg capsule,delayed release(DR/EC) 1 cap PO DAILY Certavite-Antioxidant 18-400 mg-mcg tablet 1 tab PO DAILY acetaminophen 500 mg tablet 1 tab PO Q6-8H PRN (Reason: fever) lisinopril 40 mg tablet 40 mg PO QAM Discharge Orders: Discharge Order (Routine); Ordered 06/07/22 Ordered By: Anson Hernandez Diet: Advance to usual diet Activity on Discharge: As tolerated Stand Alone Forms: Patient Portal Discharge page Care Plan Goals: avoid etoh Health Concerns: etoh dependence Plan of Treatment: vitamin supplement, avoid etoh Assessment: see above
--- NOTE | 2022-06-07 10:43 | MHC.CM.PN ---
pt dcd home no skilled services ordered by
[2022-06-07 11:46] VITALS: BP 140/85; PULSE 106; RESP 18; TEMP 36.4; O2SAT 99
--- NOTE | 2022-06-07 12:42 | PC.NURSE ---
Alert and oriented. Denies pain, VSS, afebrile, no acute resp. distress noted. Ciwa score 0. New oder to discharge patient home. Went over discharge instructions, follow up apt and medications administrations with patient. verbalized understanding back. Staff walked patient to the lobby, left via car with friend.
== END 2022-06-07 12:15 | disposition home or self-care (01) | DRG 425 ==
LOC: HO.ED 18:42 → HO.EDOVER 19:16 → HO.IMC 06-05 06:26
PROVIDERS: Physician Assistant; Admitting Provider Hospitalist; Emergency Provider Internal Medicine; PCP Family Medicine; Visit Provider Internal Medicine
DX: E83.42 Hypomagnesemia (principal); N17.9 Acute kidney failure, unspecified; Z98.51 Tubal ligation status; F17.210 Nicotine dependence, cigarettes, uncomplicated; Z86.16 Personal history of COVID-19; F10.239 Alcohol dependence with withdrawal, unspecified; E87.6 Hypokalemia; I10 Essential (primary) hypertension; Z71.6 Tobacco abuse counseling; Z20.822 Contact with and (suspected) exposure to COVID-19; Z91.040 Latex allergy status; Z88.0 Allergy status to penicillin; Z88.2 Allergy status to sulfonamides; Z88.5 Allergy status to narcotic agent; Z79.82 Long term (current) use of aspirin; Z79.899 Other long term (current) drug therapy
CPT/HCPCS: 36415; 71046; 80048; 80076; 80307; 81001; 82077; 83690; 83735; 84484; 85025; 85027; 87635; 93005; 96361; 96374; 96375; 99285; J1650; J2405; J3475

== ENCOUNTER → 2022-07-18 13:20 | Outpatient (BNVA) | payer MEDICAID, SELFPAY | PROVIDERS: PCP Family Medicine; Visit Provider Physician Assistant | DX: M17.32 Unilateral post-traumatic osteoarthritis, left knee (principal); T14.90XS Injury, unspecified, sequela | CPT/HCPCS: 99212 ==

== ENCOUNTER 2022-08-11 15:51 | Emergency (ER) | payer MEDICAID, SELFPAY ==
--- NOTE | ~2022-08-11 | XR_ITS ---
EXAMINATION: XR CERVICAL SPINE CLINICAL INFORMATION: Pain. COMPARISON: None TECHNIQUE: 3 views of the cervical spine were obtained. FINDINGS: The C7 vertebral bodies are obscured by shadowing from the shoulders. No evidence of acute compression deformities or subluxation. There is straightening of the cervical lordosis which is a nonspecific finding that could be seen with muscular spasm or related with patient's positioning. The atlantooccipital and atlantoaxial articulation are maintained. There is moderate multilevel cervical spondylosis with disc space narrowing, prominent anterior marginal osteophytes and uncovertebral hypertrophy. No prevertebral soft tissue thickening. The lung apices are clear. XR/XR cervical spine 3V IMPRESSION: Limited evaluation of the lower cervical spine, specifically the C7 vertebral body is obscured by shadowing from the shoulders. Accounting for this limitation, no acute compression deformities or subluxations are identified in the remainder of the cervical spine.
--- NOTE | ~2022-08-11 | XR_ITS ---
EXAMINATION: XR LUMBOSACRAL SPINE CLINICAL INFORMATION: Pain. COMPARISON: None TECHNIQUE: Three views of the lumbosacral spine. FINDINGS: Transitional lumbar anatomy with 6 nonrib-bearing lumbar type vertebral bodies. No acute compression deformity or subluxation. Moderate disc space narrowing and facet arthropathy at L5-S1. Mild to moderate disc space narrowing and facet arthropathy at L4-L5. SI joints are symmetric. Nonobstructive bowel gas pattern. Nonspecific metallic clip projecting to the right of the midline at the level of the lower lumbar spine. XR/XR lumbar spine 2-3V IMPRESSION: No acute compression deformity or subluxation. Moderate lower lumbar spine spondylosis.
[2022-08-11 16:07] VITALS: BP 120/79; PULSE 106; RESP 20; TEMP 36.3; O2SAT 99; BMI 35.2
--- NOTE | 2022-08-11 17:54 | ED.GENADULT ---
HPI - General Adult General Chief complaint: Back Pain/Injury Stated complaint: Head pain Time Seen by Provider: 08/11/22 17:53 Source: patient Mode of arrival: ambulatory Limitations: no limitations History of Present Illness HPI narrative: Patient is a 46 y/o female with a PMH of osteoarthritis, HTN, and Fibromyalgia presenting with low back pain, neck pain, and head pressure. The patient decribes the pain as a burning sensation. The patient reports the back pain started 1 week ago and the neck pain and head pressure started 2 days prior. Currently her low back pain is a 9/10, neck pain a 10/10 and head pressure a 7/10. The patient states she recently started moving her couches though states the couches are really light. Patient states she had had occasional blurry vision over the past week due to the pain. The patient denies headache, recent illness, weakness,loss of bladder or bowel function, fever or rashes. No history of IV drug abuse. Onset (ago): week(s) (1) Location: head, neck and back Radiation: back (laterally ) and neck (laterally ) Severity: severe Severity scale (1-10): 10 Quality: burning and constant Pain Consistency: constant Relieving factors: medication (lidocaine patch ) Exacerbating factors: movement Treatments prior to arrival: other (lidocaine patch ) Related Data Home Medications Medication Instructions Recorded Confirmed folic acid 1 mg tablet 1 tab PO DAILY 09/30/21 06/04/22 omeprazole 20 mg capsule,delayed 1 cap PO DAILY@0630 09/30/21 06/04/22 release thiamine HCl (vitamin B1) 100 mg 1 tab PO DAILY 09/30/21 06/04/22 tablet lisinopril 40 mg tablet 40 mg PO QAM 10/15/21 06/04/22 acetaminophen 500 mg tablet 1 tab PO Q6-8H PRN fever 06/04/22 06/04/22 carvedilol 3.125 mg tablet 1 tab PO BID 06/04/22 06/04/22 chlorthalidone 25 mg tablet 1 tab PO DAILY 06/04/22 06/04/22 cholecalciferol (vitamin D3) 25 1 cap PO QAM 06/04/22 06/04/22 mcg (1,000 unit) capsule (Vitamin D3) docusate sodium 100 mg capsule 1 cap PO BID PRN Constipation 06/04/22 06/04/22 duloxetine 20 mg capsule,delayed 1 cap PO DAILY 06/04/22 06/04/22 release multivitamin-ferrous 1 tab PO DAILY 06/04/22 06/04/22 fumarate-folic acid 18 mg-400 mcg tablet (Certavite-Antioxidant) Previous Rx's Medication Instructions Recorded ACL defiance brace #1 ea 07/29/21 albuterol sulfate 90 mcg/actuation 2 puff inhalation Q4-6H PRN 09/12/21 aerosol inhaler shortness of breath or wheezing #8.5 grams magnesium oxide 400 mg (241.3 mg 400 mg PO BIDPC 30 days #60 tabs 10/02/21 magnesium) tablet cyclobenzaprine 10 mg tablet 10 mg PO BEDTIME PRN muscle spasm 08/11/22 #7 tabs lidocaine 5 % topical patch 1 patch topical DAILY PRN pain #15 08/11/22 ea prednisone 20 mg tablet 20 mg PO DAILY 5 days #5 tabs 08/11/22 Allergies Allergy/AdvReac Type Severity Reaction Status Date / Time amoxicillin [AMOXICILLIN] Allergy Intermediate rash, Verified 07/18/22 13:50 rash/itching Sulfa (Sulfonamide Allergy Intermediate rash/itchin Verified 07/18/22 13:50 Antibiotics) g sulfamethoxazole Allergy Intermediate RASH Verified 07/18/22 13:50 [From BACTRIM] trimethoprim [From BACTRIM] Allergy Intermediate RASH Verified 07/18/22 13:50 hydrocodone [Hydrocodone] Allergy Mild ITCH Verified 07/18/22 13:50 ibuprofen [From Motrin] Allergy Mild UPSET Verified 07/18/22 13:50 STOMACH latex [Latex] Allergy Mild ITCH Verified 07/18/22 13:50 Review of Systems Review of Systems: Constitutional : No Weight loss, No Fever, No Chills, No Fatigue, No Malaise ENT/Mouth : No sore throat, No Rhinorrhea Eyes: No Eye Pain, No Swelling, No Redness Cardiovascular : No Chest Pain, No SOB, No Dyspnea on Exertion, No Orthopnea, No Edema, No Palpitations Respiratory : No Cough, No Sputum, No Wheezing Gastrointestinal : No Nausea, No Vomiting, No Diarrhea, No Constipation, No abdominal Pain, No Hematochezia, No Melena Genitourinary : No Dysuria, No Urinary Frequency, No Hematuria, Musculoskeletal : + joint pain, No Myalgias, No Joint Swelling Skin : No Skin Lesions, No rash Neuro : No Weakness, No Numbness, No Dizziness, No Headache Psych : No Anxiety/Panic, No Depression All other systems reviewed and are negative Yes all other systems are reviewed and are negative [facility] Past Medical History Attestation statement: The following information was validated with the patient. Source: old records reviewed and nursing notes reviewed Medical History Anxiety Breast cancer H/O ETOH abuse History of COVID-19 History of low potassium Hypertension Panic attack Uncontrolled hypertension Surgical History H/O: hysterectomy History of breast lump/mass excision History of carpal tunnel release Hx of tubal ligation Family History Family History Mother Heart disease Alzheimers disease Social History Social History Household Members: None Housing: Apartment Do you presently have visiting nurse or other home services: No Alcohol intake: current Alcohol intake frequency: a few times a week Alcohol type: hard liquor Patient Tobacco Use Status: Current someday Tobacco user Tobacco use type: Cigarette Cigarettes Per Day: 10 Advance Directives: Yes Advance Directives on File: Yes Advance Directives Date on File: 02/11/22 service: No Current occupational status: disabled Physical Exam ED Vital Signs: Vital Signs - 24 hr 08/11/22 16:07 Temperature 97.4 F Pulse Rate 106 H Respiratory Rate 20 Blood Pressure 120/79 Pulse Oximetry 99 Oxygen Delivery Method Room Air BMI result Body Mass Index 35.2 vss Appearance: Alert.? Oriented X3.? No acute distress.? Head: Normocephalic, atraumatic, no step-offs or deformities Eyes: Pupils equal, round and reactive to light.? Neck: Normal inspection.? Neck supple. No step up or step downs.?Negative spurling, lehermit sign. Neck tender to palpation of the lower cervical spinous process. + pain with facet loading. No menigeal signs, -Kernig, -brudzinski. Back: Non tender to palpation of the paraspinous muscle or spinous process. + pain with facet loading. Functional ROM. No CVA tenderness bilaterally CVS: Normal heart rate and rhythm.? Pulses normal.? Respiratory: No respiratory distress.? Breath sounds normal.? Abdomen: Soft and nontender.? Skin: Skin warm and dry.? Normal skin color.? Normal skin turgor.? Extremities: No lower extremity edema.? No calf ttp. 5/5 strength to bilateral upper and lower extremities 2+ DTRs to bilateral lower extremities. Neuro: Oriented X 3.? No motor deficit.? No sensory deficit. CN 2-12 intact. No saddle paresthesias, ambulating with steady gait normal coordination. Normal finger to nose heel to ventura. Course Reevaluation(s) Reevaluation #1: X-ray of the lumbar spine with no acute compression deformity or subluxation, moderate lower lumbar spondylosis. Limited evaluation of the lower cervical spine particularly the C7 however no signs of acute fracture, dislocation, compression deformities or subluxations. Patient does not have point tenderness over C7 therefore repeat imaging will not be done. This time high suspicion for lumbar/cervical sprain / strain or spasms. Patient will be discharged likely benazepril Lidoderm patches. Advised to return with new or worsening symptoms. Will give her follow-up with Spine and pain continues she should follow up with them. Educated on worisome signs and symptoms and when to return. Comfortable discharge Time: 18:06 Medical Decision Making [facility] Narrative Medical decision making narrative: 1800 46 year old female presents w/ neck pain that radiataes to head, and lower back pain x 1 week wosening. Non traumatic. Denies fevers, chills, vision changes, headache, dizziness. PE siginficant for facet loading in lumbar and cervical. Likley lumbar/ cervical sprain/ strain. History and physical examination not consistent with cauda equina, epidural abscess, meningitis, guillian barre or MS. pain not trauma related, unlikely fracture, dislocation, subluxations. Plan- imaging Wilson head ct rule negative- neuro non focal- no need for head ct unlikley ICH, stroke, posterior stroke. Medical Records Medical records reviewed: Yes I reviewed the patient's medical records. Lab Data Lab results reviewed: Yes I reviewed the patient's lab results. Critical Care Time Critical Care Time Critical Care Time: No Discharge Plan Discharge Clinical Impression: Lower back pain, Neck pain Patient Disposition: Home, Self-Care Instructions: Acute Low Back Pain (ED), Back Pain (ED), Neck Pain (ED) Additional Instructions: Take your medications as prescribed. If you were prescribed antibiotics today, it is important that you take your medication to their entirety, do not skip any doses, do not finish them early. Follow-up with your primary care provider this week. Return to the emergency department with new or worsening symptoms. Such as fevers, chills, chest pain, shortness of breath, nausea, vomiting, dizziness, headache, vision changes, lethargy In case of emergency call 911 XR/XR lumbar spine 2-3V IMPRESSION: No acute compression deformity or subluxation. ? Moderate lower lumbar spine spondylosis. XR/XR cervical spine 3V IMPRESSION: Limited evaluation of the lower cervical spine, specifically the C7 vertebral body is obscured by shadowing from the shoulders. Accounting for this limitation, no acute compression deformities or subluxations are identified in the remainder of the cervical spine. ? Prescriptions: New cyclobenzaprine 10 mg tablet 10 mg PO BEDTIME PRN (Reason: muscle spasm) Qty: 7 0RF lidocaine 5 % adhesive patch,medicated 1 patch topical DAILY PRN (Reason: pain) Qty: 15 0RF Rx Instructions: leave on most painful area for up to 12 hrs prednisone 20 mg tablet 20 mg PO DAILY 5 Days Qty: 5 0RF No Action (DME) ACL defiance brace See Rx Instructions .ROUTE .MEDSUPPLY Qty: 1 0RF Rx Instructions: n/a albuterol sulfate 90 mcg/actuation HFA aerosol inhaler 2 puff inhalation Q4-6H PRN (Reason: shortness of breath or wheezing) Qty: 8.5 0RF thiamine HCl (vitamin B1) 100 mg tablet 1 tab PO DAILY omeprazole 20 mg capsule,delayed release(DR/EC) 1 cap PO DAILY@0630 folic acid 1 mg tablet 1 tab PO DAILY magnesium oxide 400 mg (241.3 mg magnesium) Tablet 400 mg PO BIDPC 30 Days Qty: 60 0RF chlorthalidone 25 mg tablet 1 tab PO DAILY carvedilol 3.125 mg tablet 1 tab PO BID docusate sodium 100 mg capsule 1 cap PO BID PRN (Reason: Constipation) cholecalciferol (vitamin D3) [Vitamin D3] 25 mcg (1,000 unit) capsule 1 cap PO QAM duloxetine 20 mg capsule,delayed release(DR/EC) 1 cap PO DAILY Certavite-Antioxidant 18-400 mg-mcg tablet 1 tab PO DAILY acetaminophen 500 mg tablet 1 tab PO Q6-8H PRN (Reason: fever) lisinopril 40 mg tablet 40 mg PO QAM Referrals: Shereen Latham MD [Primary Care Provider] - 2 days Stand Alone Forms: Work/School Release
--- OUTSIDE RECORDS SUMMARY | 2022-08-11 17:58 | XMS_ITS | Continuity of Care Document ---
:1975 Author Organization [facility] Address [address] [place] [address] Drive [address] [place] [address]- Care Team Providers Name Role Phone Shereen Latham MD Primary Care Physician [place] [facility] [place] [id number] Date(s): 02/17/22 - 02/24/22 [facility] [address] [place] [address] Drive [address] [place] [address]- Attending Physician: Ranjan Browne MD Referring Physician: Shereen Latham MD Allergies, Adverse Reactions, Alerts Substance Reaction Severity Status sulfa drugs Active Motrin gives knots in stomach Persistent Severe Active dizzy Vicodin itching and redness of skin Persistent Severe Ac tive rash Amoxil itchy, red skin Persistent Severe Active Latex itching Persistent Severe Active Medications folic acid 1 mg oral tablet 1 mg, 1, tablet, By Mouth, Daily, # 30 tablet, Refills 0, Maintenance, 01/22/22 16:10:00 EDT, Partial fill upon patient request if the prescription is for a schedule II opioid drug. Start Date: 01/22/22 Status: Orderedlisinopril 20 mg oral tablet 40 mg, By Mouth, Daily, Refills 0, Maintenance, 02/24/19 12:04:03 EDT Start Date: 02/24/19 Status: Orderedloratadine 10 mg oral capsule 1 capsule = 10 mg, By Mouth, Daily, # 10 capsule, 0 Refills, Maintenance, 01/22/22 16:09:00 EDT, Capsule, Partial fill upon patient request if the prescription is for a schedule II opioid drug. Start Date: 01/22/22 Status: Orderedmagnesium oxide 400 mg oral tablet 1 tablet = 400 mg, By Mouth, Daily, 0 Refills, Maintenance, 01/22/22 16:11:00 EDT, Partial fill uponpatient request if the prescription is for a schedule II opioid drug. Start Date: 01/22/22 Status: OrderedPrilosec 20 mg oral enteric coated capsule 1 capsule = 20 mg, By Mouth, Daily, # 30 capsule, 0 Refills, Maintenance, EC Capsule Start Date: 11/13/11 Status: Ordered Problem List Condition Effective Dates Status Health Status Informant Alcohol abuse(Confirmed) Active Anxiety(Confirmed) Active Cocaine use(Confirmed) Active Depression(Confirmed) Active Chronic GERD(Confirmed) Active Hypertension(Confirmed) Active Post traumatic stress disorder Active (PTSD)(Confirmed) Vital Signs Most recent to oldest [Reference Range]: 1 Height 170 cm (02/17/22 1:11 PM) Weight 66 kg (02/17/22 1:11 PM) Body Mass Index [18.5-24.99] 22.84 (02/17/22 1:11 PM) Social History Social History Type Response Tobacco Other: 1-2 cigarettes/day. Sex
--- OUTSIDE RECORDS SUMMARY | 2022-08-11 17:58 | XMS_ITS | Continuity of Care Document ---
:1975 Author Organization [facility] Address [address] [place] [address]- Care Team Providers Name Role Phone [place] Shereen NOLASCO Primary Care Physician Encounter [facility] [place] Date(s): 10/08/21 - 10/08/[address] [address]- Discharge Disposition: A-D/C Walkout Attending Physician: Not on Staff, Attending MD Admitting Physician: Not on Staff, Admitting MD Referring Physician: Not on Staff, Referring MD Allergies, Adverse Reactions, Alerts Substance Reaction Severity Status sulfa drugs Active Motrin gives knots in stomach Persistent Severe Active dizzy Amoxil itchy, red skin Persistent Severe Active Vicodin itching and redness of skin Persistent Severe Ac tive rash Latex itching Persistent Severe Active Medications lisinopril 20 mg oral tablet 40 mg, By Mouth, Daily, Refills 0, Maintenance, 02/24/19 12:04:03 EDT Start Date: 02/24/19 Status: Orderedmetoprolol 50 mg oral tablet 50 mg, 1, tablet, By Mouth, 2 times a day, # 60 tablet, Refills 0, Tot. Refills 0, Maintenance, 02/27/19 15:30:53 EDT, Route to Pharmacy Electronically, [id number], [facility] Start Date: 02/27/19 Stop Date: 03/29/19 Status: Orderedmetoprolol 50 mg oral tablet 50 mg, 1, tablet, By Mouth, 2 times a day, # 30 tablet, Refills 0, Tot. Refills 0, Maintenance, 11/18/19 2:27:00 EST, Print Requisition Start Date: 11/18/19 Status: OrderedPrilosec 20 mg oral enteric coated capsule 1 capsule = 20 mg, By Mouth, Daily, # 30 capsule, 0 Refills, Maintenance, EC Capsule Start Date: 11/13/11 Status: OrderedVistaril pamoate 50 mg oral capsule 1 capsule = 50 mg, By Mouth, 3 times a day, PRN for anxiety, # 40 capsule, 0 Refills, Maintenance, 06/19/19 14:22:17 EDT, Capsule Start Date: 06/19/19 Status: Ordered Problem List Condition Effective Dates Status Health Status Informant Alcohol abuse(Confirmed) Active Anxiety(Confirmed) Active Cocaine use(Confirmed) Active Depression(Confirmed) Active Chronic GERD(Confirmed) Active Hypertension(Confirmed) Active Post traumatic stress disorder Active (PTSD)(Confirmed) Results Radiology Reports Exam Date Time Procedure Performing Provider Status 10/08/21 4:37 PM Chest 2 Views Frontal and Lat Monica Alvarado; Au th (Verified) Notes:(Chest 2 Views Frontal and Lat) Reason For Exam: Chest Pain;Other:RESULT: Chest 2 Views Frontal and Lat Chest 2 Views Frontal and Lat INDICATION: History of right breast cancer. Sob and HTN today; Reason: Other:; Chest Pain; Clinical Question(s): Other: COMPARISON: 02/26/2019, 02/22/2019. FINDINGS: LINES AND TUBES: None. LUNGS AND PLEURA: Clear lungs. Normal pulmonary vascularity. No pleural effusion. No pneumothorax. HEART, MEDIASTINUM AND DANELLE: Normal cardiac silhouette. Aorta is tortuous. Unchanged nonspecific lucency projecting over the aortic arch as seen on 02/22/2019, likely superimposition of normal structures. BONES AND SOFT TISSUES: No acute abnormality. Right breast implant. Possible left breast implant. Multiple bilateral punctate densities projecting over the mid and upper chest on the frontal view are most likely superficial as appreciated on the lateral projection, possibly corresponding with patient's clothing. IMPRESSION: No acute cardiopulmonary process. I have personally reviewed the images and I agree with this report. WSN: [id number] Ordering Physician: Saida Boswell MD Dictated By: Micheline Walters MD Dictated Date/Time: 10/08/21 5:01 pm Reviewed By: Beck Champagne MD Signed By: Beck Champagne MD Signed Date/Time: 10/08/21 5:06 pm Transcribed By: BRANDON Transcribed Date/Time: 10/08/21 4:47 pm Vital Signs Most recent to oldest 1 2 3 [Reference Range]: Oxygen Saturation [94-100 %] 100 % 100 % 100 % (10/08/21 6:10 PM) (10/08/21 3:09 PM) (10/08/21 3:0 5 PM) Pulse Rate [55-90 bpm] 97 bpm 108 bpm 115 bpm *H* *H* *H* (10/08/21 6:10 PM) (10/08/21 3:09 PM) (10/08/21 3:0 5 PM) Blood Pressure [90-138/55-84 mm 159/110 mm Hg 159/104 mm Hg Hg] *H* *H* (10/08/21 6:10 PM) (10/08/21 3:09 PM) Respiratory Rate [16-30 br/min] 18 br/min 20 br/min (10/08/21 6:10 PM) (10/08/21 3:09 PM) Temperature [96.8-100.4 DegF] 99.3 DegF 97.7 DegF (10/08/21 6:10 PM) (10/08/21 3:09 PM) Mode of Delivery (Oxygen) Room air Room air Room a ir (10/08/21 6:10 PM) (10/08/21 3:09 PM) (10/08/21 3:0 5 PM) Blood pressure sites Arm, left Arm, left (10/08/21 6:10 PM) (10/08/21 3:09 PM) Temperature Route Oral Oral (10/08/21 6:10 PM) (10/08/21 3:09 PM) Social History Social History Type Response Tobacco Other: 1-2 cigarettes/day. Sex
--- OUTSIDE RECORDS SUMMARY | 2022-08-11 17:58 | XMS_ITS | Continuity of Care Document ---
:1975 Author Organization [address] [place] [address]- Care Team Providers Name Role Phone Shereen Latham MD Primary Care Physician Encounter [facility] [place] Date(s): 09/16/21 - 11/07/[address] [place], [place] [address] Attending Physician: Geoffrey GA MD, Pal Avila Referring Physician: Shereen Latham MD Allergies, Adverse [...] 02/27/19 15:30:53 EDT, Route to Pharmacy Electronically, [id number], [facility] Start Date: 02/27/19 Stop Date: [...] Active Post traumatic stress disorder Active (PTSD)(Confirmed) Social History Social History Type Response Tobacco Other: 1-2 cigarettes/day. Sex
--- OUTSIDE RECORDS SUMMARY | 2022-08-11 17:58 | XMS_ITS | Continuity of Care Document ---
:1975 Author Organization [facility] [address] [place] [address]- Care Team Providers Name Role Phone Shereen Latham MD Primary Care Physician Encounter [facility] Date(s): 08/23/21 - 10/11/[address] [place], [place] [address] Attending Physician: Pal Hale III, MD Admitting Physician: Pal Hale III, MD Referring Physician: Shereen Latham MD Allergies, [...] 02/27/19 15:30:53 EDT, Route to Pharmacy Electronically, [id number], [facility] Start Date: 02/27/19 Stop Date: [...]
--- OUTSIDE RECORDS SUMMARY | 2022-08-11 17:58 | XMS_ITS | Continuity of Care Document ---
:1975 Author Organization [facility] [address] [place] [address]- Care Team Providers Name Role Phone Shereen Latham MD Primary Care Physician Encounter [facility] [place] Date(s): 09/11/21 - 10/11/21 [facility] [address] [place], [place] [address] Attending Physician: Ema Jackson Admitting Physician: Ema Jackson Referring Physician: AdmtrEma Allergies, Adverse Reactions, Alerts Substance Reaction Severity [...] 02/27/19 15:30:53 EDT, Route to Pharmacy Electronically, [id number], [facility] Start Date: 02/27/19 [...]
--- OUTSIDE RECORDS SUMMARY | 2022-08-11 17:58 | XMS_ITS | Continuity of Care Document ---
:1975 Author Organization [facility] Address [address] [place] [address] Drive [address] [place] [address]- Care Team Providers Name Role Phone Shereen Latham MD Primary Care Physician Encounter [facility] [place] Date(s): 02/17/22 - 03/19/22 [facility] [address] [place] [address] Drive [address] [place] [address]- Attending Physician: Ema Jackson Admitting Physician: Ema [...]
--- OUTSIDE RECORDS SUMMARY | 2022-08-11 17:58 | XMS_ITS | Continuity of Care Document ---
:1975 Author Organization [facility] Address [address] [place] [address]- Care Team Providers Name Role Phone Shereen Latham MD Primary Care Physician En[place] [facility] [place] Date(s): 06/06/22 - 07/06/22 [facility] [address] [place] [address]- Allergies, Adverse Reactions, Alerts Substance Reaction Severity Status sulfa drugs Active Motrin gives knots in stomach Persistent Severe Active dizzy Amoxil itchy, red skin Persistent Severe Active Vicodin itching and redness of skin Persistent Severe Ac tive rash Latex itching Persistent Severe Active Medications folic [...] Type Response Tobacco Other: 1-2 cigarettes/day. Sex Care Team PersonnelName: Noa NOLASCO , Shereen Diallo Address: [address] [facility] [address] [place], [place] [address]
--- OUTSIDE RECORDS SUMMARY | 2022-08-11 17:58 | XMS_ITS | Continuity of Care Document ---
:1975 Author Organization [facility] [address] [place] [address]- Care Team Providers Name Role Phone Shereen Latham MD Primary Care Physician [phone] Encounter [facility] [place] Date(s): 10/11/21 - 11/10/[address] [place] [id number] Allergies, Adverse Reactions, Alerts Substance Reaction Severity [...] 02/27/19 15:30:53 EDT, Route to Pharmacy Electronically, [id number], [facility] Start Date: 02/27/19 Stop [...]
--- OUTSIDE RECORDS SUMMARY | 2022-08-11 17:58 | XMS_ITS | Continuity of Care Document ---
:1975 Author Organization [facility] [address] [place] [address]- Care Team Providers Name Role Phone Shereen Latham MD Primary Care Physician Encounter [facility] [place] Date(s): 08/23/21 - 09/22/[address] [place] [address] Allergies, Adverse Reactions, Alerts Substance Reaction [...] 02/27/19 15:30:53 EDT, Route to Pharmacy Electronically, [id number], [facility] Start Date: 02/27/19 Stop [...]
--- OUTSIDE RECORDS SUMMARY | 2022-08-11 17:58 | XMS_ITS | Continuity of Care Document ---
:1975 Author Organization [facility] Address [address] [place] [address]- Care Team Providers Name Role Phone Shereen Latham MD Primary Care Physician Encounter [facility] [place] Date(s): 04/03/22 - 05/03/22 [facility] [address] [place] [address]- Attending Physician: Ema Jackson Admitting Physician: AdmEma rodriguez Referring Physician: [id number] Allergies, Adverse Reactions, Alerts Substance Reaction Severity [...]
--- OUTSIDE RECORDS SUMMARY | 2022-08-11 17:58 | XMS_ITS | Continuity of Care Document ---
:1975 Author Organization [facility] Endocrinology and D iabetes Address [address] [place] [phone]- Care Team Providers Name Role Phone Shereen Latham MD Primary Care Physician En[place] [facility] Date(s): 01/22/22 - 05/03/22 [facility] Endocrinology and Diabetes [address] [place] [phone]- Attending Physician: Yvonne Aguayo MD Admitting Physician: Yvonne Aguayo MD Referring Physician: Shereen Latham MD Allergies, [...]
--- OUTSIDE RECORDS SUMMARY | 2022-08-11 17:58 | XMS_ITS | Continuity of Care Document ---
:1975 Author Organization [facility] Address [address] [place] [phone]- Care Team Providers Name Role Phone Shereen Latham MD Primary Care Physician Encounter [facility] [place] Date(s): 11/17/19 - 11/18/[address] [address]- [facility] Encounter Diagnosis Encounter for wellness examination (Final) - 11/18/19 Discharge Disposition: A-D/C Home Attending Physician: Jose Mac MD Admitting Physician: Jose Mac MD Referring Physician: Not on Staff, Referring [...] 02/27/19 15:30:53 EDT, Route to Pharmacy Electronically, [id number], [facility] Start Date: 02/27/19 [...] (PTSD)(Confirmed) Vital Signs Most recent to oldest 1 2 3 [Reference Range]: Oxygen Saturation [94-100 %] 99 % 100 % 99 % (11/18/19 2:09 AM) (11/18/19 1:19 AM) (11/17/19 8:3 2 PM) Pulse Rate [55-90 bpm] 92 bpm 96 bpm 90 bpm *H* *H* (11/18/19 1:19 AM ) (11/18/19 2:09 AM) (11/18/19 1:31 AM) Blood Pressure [90-138/55-84 mm 159/97 mm Hg 154/105 mm Hg 135/100 mm Hg Hg] *H* *H* (11/18/19 1:19 AM ) (11/18/19 2:09 AM) (11/18/19 1:31 AM) Respiratory Rate [16-30 br/min] 17 br/min 18 br/min 16 br/min (11/18/19 2:09 AM) (11/18/19 1:19 AM) (11/17/19 8:3 2 PM) Temperature [96.8-100.4 DegF] 96.8 DegF 97.7 DegF (11/18/19 1:19 AM) (11/17/19 8:32 PM) Mode of Delivery (Oxygen) Room air Room air Room a ir (11/18/19 2:09 AM) (11/18/19 1:19 AM) (11/17/19 8:3 2 PM) Blood pressure sites Arm, left Arm, left Arm, left (11/18/19 2:09 AM) (11/18/19 1:19 AM) (11/17/19 8:3 2 PM) Temperature Route Oral Oral (11/18/19 1:19 AM) (11/17/19 8:32 PM) Social History Social History Type Response Tobacco Other: 1-2 cigarettes/day. Sex
--- OUTSIDE RECORDS SUMMARY | 2022-08-11 17:58 | XMS_ITS | Continuity of Care Document ---
:1975 Author Organization [facility] Address [address] [place] [address]- Care Team Providers Name Role Phone Shereen Latham MD Primary Care Physician [phone] Encounter [facility] [place] Date(s): 06/30/22 - 07/30/22 [facility] Endocrinology and Diabetes [address] [place] [id number] Allergies, Adverse Reactions, Alerts Substance Reaction Severity [...] Date: 11/13/11 Status: Ordered Problem List Condition Confirmation Course Effective Dates Status Health Stat us Informant Alcohol abuse Confirmed Active Anxiety Confirmed Active Cocaine use Confirmed Active Depression Confirmed Active Chronic GERD Confirmed Active Hypertension Confirmed Active Post traumatic Confirmed Active stress disorder (PTSD) Social History Social History Type Response Tobacco Other: 1-2 cigarettes/day. Sex Patient Care team information PersonnelName: Noa ONLASCO , Shereen Diallo Address: Address: [address] [place] [address] [address] [place], [place] [address]
[2022-08-11] MEDS: Lidocaine 4 % Patch ADH..PATCH 2 PATCH TRANSDERMA (18:24)
[2022-08-11] MEDS: Ketorolac Tromethamine 15 MG/ML VIAL 30 MG IM (18:26)
== END 2022-08-11 18:42 | disposition home or self-care (01) ==
PROVIDERS: Emergency Provider Internal Medicine; PCP Family Medicine
DX: M54.50 Low back pain, unspecified (principal); M54.2 Cervicalgia; I10 Essential (primary) hypertension; F17.210 Nicotine dependence, cigarettes, uncomplicated
CPT/HCPCS: 72040; 72100; 96372; 99283; 99284; J1885

== ENCOUNTER 2022-10-02 18:17 | Emergency (ER) | payer MEDICAID, SELFPAY ==
[2022-10-02 19:59] VITALS: BP 132/96; PULSE 123; RESP 20; TEMP 36.3; O2SAT 98; BMI 28.1
--- NOTE | 2022-10-02 20:03 | ED_ITS ---
HPI - General Adult General Chief complaint: General Medical <AGNIESZKA Bauer - Last Filed: 10/05/22 10:11> Stated complaint: withdreawls, tightness in chest, vomiting, mutlple <AGNIESZKA Bauer - Last Filed: 10/05/22 10:11> Time Seen by Provider: 10/02/22 22:28 <AGNIESZKA Bauer - Last Filed: 10/05/22 10:11> Related Data Home medications: Home Medications Medication Instructions Recorded Confirmed folic acid 1 mg tablet 1 tab PO DAILY 09/30/21 06/04/22 omeprazole 20 mg capsule,delayed 1 cap PO DAILY@0630 09/30/21 06/04/22 release thiamine HCl (vitamin B1) 100 mg 1 tab PO DAILY 09/30/21 06/04/22 tablet lisinopril 40 mg tablet 40 mg PO QAM 10/15/21 06/04/22 acetaminophen 500 mg tablet 1 tab PO Q6-8H PRN fever 06/04/22 06/04/22 carvedilol 3.125 mg tablet 1 tab PO BID 06/04/22 06/04/22 chlorthalidone 25 mg tablet 1 tab PO DAILY 06/04/22 06/04/22 cholecalciferol (vitamin D3) 25 1 cap PO QAM 06/04/22 06/04/22 mcg (1,000 unit) capsule (Vitamin D3) docusate sodium 100 mg capsule 1 cap PO BID PRN Constipation 06/04/22 06/04/22 duloxetine 20 mg capsule,delayed 1 cap PO DAILY 06/04/22 06/04/22 release multivitamin-ferrous 1 tab PO DAILY 06/04/22 06/04/22 fumarate-folic acid 18 mg-400 mcg tablet (Certavite-Antioxidant) Previous Rx's Medication Instructions Recorded ACL defiance brace #1 ea 07/29/21 albuterol sulfate 90 mcg/actuation 2 puff inhalation Q4-6H PRN 09/12/21 aerosol inhaler shortness of breath or wheezing #8.5 grams magnesium oxide 400 mg (241.3 mg 400 mg PO BIDPC 30 days #60 tabs 10/02/21 magnesium) tablet cyclobenzaprine 10 mg tablet 10 mg PO BEDTIME PRN muscle spasm 08/11/22 #7 tabs lidocaine 5 % topical patch 1 patch topical DAILY PRN pain #15 08/11/22 ea prednisone 20 mg tablet 20 mg PO DAILY 5 days #5 tabs 08/11/22 lorazepam 1 mg tablet (Ativan) 1 - 2 mg PO Q6H PRN alcohol 10/03/22 withdrawal #14 tabs ondansetron 4 mg disintegrating 4 mg PO Q6H PRN nausea and 10/03/22 tablet vomiting #10 tabs <AGNIESZKA Bauer - Last Filed: 10/05/22 10:11> Allergies/adverse reactions: Allergies Allergy/AdvReac Type Severity Reaction Status Date / Time amoxicillin [AMOXICILLIN] Allergy Intermediate rash, Verified 10/02/22 20:03 rash/itching Sulfa (Sulfonamide Allergy Intermediate rash/itchin Verified 10/02/22 20:03 Antibiotics) g sulfamethoxazole Allergy Intermediate RASH Verified 10/02/22 20:03 [From BACTRIM] trimethoprim [From BACTRIM] Allergy Intermediate RASH Verified 10/02/22 20:03 hydrocodone [Hydrocodone] Allergy Mild ITCH Verified 10/02/22 20:03 ibuprofen [From Motrin] Allergy Mild UPSET Verified 10/02/22 20:03 STOMACH latex [Latex] Allergy Mild ITCH Verified 10/02/22 20:03 <AGNIESZKA Bauer - Last Filed: 10/05/22 10:11> [facility] Past Medical History Medical History: Medical History Anxiety Breast cancer H/O ETOH abuse History of COVID-19 History of low potassium Hypertension Panic attack Uncontrolled hypertension <AGNIESZKA Bauer - Last Filed: 10/05/22 10:11> Surgical History: Surgical History H/O: hysterectomy History of breast lump/mass excision History of carpal tunnel release Hx of tubal ligation <AGNIESZKA Bauer - Last Filed: 10/05/22 10:11> Family History Family History: Family History Mother Heart disease Alzheimers disease <AGNIESZKA Bauer - Last Filed: 10/05/22 10:11> Social History Social History: Social History Household Members: None Housing: Apartment Do you presently have visiting nurse or other home services: No Alcohol intake: current Alcohol intake frequency: a few times a week Alcohol type: hard liquor Patient Tobacco Use Status: Current someday Tobacco user Tobacco use type: Cigarette Cigarettes Per Day: 10 Advance Directives: Yes Advance Directives on File: Yes Advance Directives Date on File: 02/11/22 service: No Current occupational status: disabled <AGNIESZKA Bauer - Last Filed: 10/05/22 10:11> Physical Exam ED Vital Signs: Vital Signs - 24 hr 10/02/22 19:59 10/02/22 23:18 Temperature 97.3 F 98.4 F Pulse Rate 123 H 101 H Respiratory Rate 20 22 H Blood Pressure 132/96 H 161/99 H Pulse Oximetry 98 99 Oxygen Delivery Method Room Air Room Air BMI result Body Mass Index 28.1 <AGNIESZKA Bauer - Last Filed: 10/05/22 10:11> Vital Signs - 24 hr 10/02/22 19:59 10/02/22 23:18 Temperature 97.3 F 98.4 F Pulse Rate 123 H 101 H Respiratory Rate 20 22 H Blood Pressure 132/96 H 161/99 H Pulse Oximetry 98 99 Oxygen Delivery Method Room Air Room Air BMI result Body Mass Index 28.1 <Benny López MD - Last Filed: 10/03/22 01:59> Course Course Course Narrative: RME: Presenting to chest tightness, blood in stool, alcoholic binge. last drink was yesterday. labs and EkG ordered. <AGNIESZKA Bauer - Last Filed: 10/05/22 10:11> Medications Administered Discontinued Medications Generic Name Dose Route Start Last Admin Trade Name Freq PRN Reason Stop Dose Admin Sodium Chloride 1,000 mls @ 999 mls/hr 10/02/22 22:45 10/02/22 23:58 Ns IV 10/02/22 23:45 Infused .Q1H1M CLAUDIA Infusion Lorazepam 2 mg 10/02/22 22:37 10/02/22 22:48 Lorazepam 1 Mg Tablet PO 10/02/22 22:38 2 mg ONCE ONE Administration Ondansetron HCl 4 mg 10/02/22 22:36 10/02/22 22:48 Ondansetron Hcl 4 Mg/2 Ml Vial IVPUSH 10/02/22 22:37 4 mg ONCE ONE Administration <AGNIESZKA Bauer - Last Filed: 10/05/22 10:11> Medications Administered Discontinued Medications Generic Name Dose Route Start Last Admin Trade Name Lynne PRN Reason Stop Dose Admin Sodium Chloride 1,000 mls @ 999 mls/hr 10/02/22 22:45 10/02/22 23:58 Ns IV 10/02/22 23:45 Infused .Q1H1M CLAUDIA Infusion Lorazepam 2 mg 10/02/22 22:37 10/02/22 22:48 Lorazepam 1 Mg Tablet PO 10/02/22 22:38 2 mg ONCE ONE Administration Ondansetron HCl 4 mg 10/02/22 22:36 10/02/22 22:48 Ondansetron Hcl 4 Mg/2 Ml Vial IVPUSH 10/02/22 22:37 4 mg ONCE ONE Administration <Benny López MD - Last Filed: 10/03/22 01:59> Medical Decision Making MDM Narrative Medical decision making narrative: Patient with recent binge drinking, felt that she was having withdrawal symptoms. Patient was tachycardic but not tremulous. Patient was treated with lorazepam 2 mg p.o., normal saline 1 L IV, ondansetron 4 mg IV. Patient felt much better. Patient's heart rate came down. Patient appears safe for outpatient treatment of her mild alcohol withdrawal. Labs unremarkable <Benny López MD - Last Filed: 10/03/22 01:59> Lab Data Lab results reviewed: Yes I reviewed the patient's lab results. <Benny López MD - Last Filed: 10/03/22 01:59> Result diagrams: : 10/02/22 20:33 10/02/22 20:33 <AGNIESZKA Bauer - Last Filed: 10/05/22 10:11> Labs: Lab Results 10/02/22 10/02/22 10/02/22 Range/Units 20:33 20:33 20:33 WBC 7.1 (4.8-10.8) X10*3/uL RBC 3.92 L (4.20-5.50) X10*6/uL Hgb 12.2 (12.0-16.0) g/dl Hct 35.3 L (37.0-47.0) % MCV 90.1 (80.0-98.0) fL MCH 31.1 (27.0-33.0) pg MCHC 34.6 (31.0-35.0) g/dl RDW 14.8 (11.0-16.0) % Plt Count 282 D (160-400) X10*3/uL MPV 9.9 (9.4-12.3) fL Immature Gran % (Auto) 0.3 (0.0-0.4) % Neut % (Auto) 59.0 (45-73) % Lymph % (Auto) 30.3 (20-40) % Mcdowell % (Auto) 7.6 (2-11) % Eos % (Auto) 1.8 (0-4) % Baso % (Auto) 1.0 (0-2) % Lymph # (Auto) 2.2 (1.2-4.9) X10*3/uL Mcdowell # (Auto) 0.5 (0.1-1.2) X10*3/uL Eos # (Auto) 0.1 (0.0-0.4) X10*3/uL Baso # (Auto) 0.1 (0.0-0.2) X10*3/uL Abs Immat Gran (auto) 0.02 (0.00-0.03) X10*3/uL Absolute Neuts (auto) 4.2 (2.0-8.3) x10*3/uL Absolute Nucleated RBC 0.000 (0.0-0.012) X10*3/uL Nucleated RBC % (auto) 0.0 (0.0-0.2) /100WBC PT 11.0 (10.0-13.1) SEC INR 1.0 (0.9-1.1) APTT 35.0 (26.0-36.4) SEC Sodium 136 (135-145) mmol/L Potassium 3.7 (3.3-5.1) mmol/L Chloride 99 (96-108) mmol/L Carbon Dioxide 25 (22-29) mmol/L Anion Gap 16 (12-20) BUN 22 H (9-16) mg/dL Creatinine 1.38 (0.5-1.4) mg/dL Estim Creat Clear Calc 54.7 Estimated GFR 41 Random Glucose 107 (60-115) mg/dL Calcium 9.6 D (8.4-10.2) mg/dL Total Bilirubin 0.9 (0.0-1.0) mg/dL AST 44 H (5-31) U/L ALT 42 H (0-31) U/L Alkaline Phosphatase 117 (39-117) U/L Troponin I High Sens (<3.5-17.0) ng/L Total Protein 7.7 (6.5-8.0) g/dL Albumin 4.4 (3.5-5.0) g/dL Lipase 51 (8-78) U/L Ethyl Alcohol < 10 mg/dL 10/02/22 Range/Units 20:33 WBC (4.8-10.8) X10*3/uL RBC (4.20-5.50) X10*6/uL Hgb (12.0-16.0) g/dl Hct (37.0-47.0) % MCV (80.0-98.0) fL MCH (27.0-33.0) pg MCHC (31.0-35.0) g/dl RDW (11.0-16.0) % Plt Count (160-400) X10*3/uL MPV (9.4-12.3) fL Immature Gran % (Auto) (0.0-0.4) % Neut % (Auto) (45-73) % Lymph % (Auto) (20-40) % Mcdowell % (Auto) (2-11) % Eos % (Auto) (0-4) % Baso % (Auto) (0-2) % Lymph # (Auto) (1.2-4.9) X10*3/uL Mcdowell # (Auto) (0.1-1.2) X10*3/uL Eos # (Auto) (0.0-0.4) X10*3/uL Baso # (Auto) (0.0-0.2) X10*3/uL Abs Immat Gran (auto) (0.00-0.03) X10*3/uL Absolute Neuts (auto) (2.0-8.3) x10*3/uL Absolute Nucleated RBC (0.0-0.012) X10*3/uL Nucleated RBC % (auto) (0.0-0.2) /100WBC PT (10.0-13.1) SEC INR (0.9-1.1) APTT (26.0-36.4) SEC Sodium (135-145) mmol/L Potassium (3.3-5.1) mmol/L Chloride (96-108) mmol/L Carbon Dioxide (22-29) mmol/L Anion Gap (12-20) BUN (9-16) mg/dL Creatinine (0.5-1.4) mg/dL Estim Creat Clear Calc Estimated GFR Random Glucose (60-115) mg/dL Calcium (8.4-10.2) mg/dL Total Bilirubin (0.0-1.0) mg/dL AST (5-31) U/L ALT (0-31) U/L Alkaline Phosphatase (39-117) U/L Troponin I High Sens 11.0 (<3.5-17.0) ng/L Total Protein (6.5-8.0) g/dL Albumin (3.5-5.0) g/dL Lipase (8-78) U/L Ethyl Alcohol mg/dL <AGNIESZKA Bauer - Last Filed: 10/05/22 10:11> Lab Results 10/02/22 10/02/22 10/02/22 Range/Units 20:33 20:33 20:33 WBC 7.1 (4.8-10.8) X10*3/uL RBC 3.92 L (4.20-5.50) X10*6/uL Hgb 12.2 (12.0-16.0) g/dl Hct 35.3 L (37.0-47.0) % MCV 90.1 (80.0-98.0) fL MCH 31.1 (27.0-33.0) pg MCHC 34.6 (31.0-35.0) g/dl RDW 14.8 (11.0-16.0) % Plt Count 282 D (160-400) X10*3/uL MPV 9.9 (9.4-12.3) fL Immature Gran % (Auto) 0.3 (0.0-0.4) % Neut % (Auto) 59.0 (45-73) % Lymph % (Auto) 30.3 (20-40) % Mcdowell % (Auto) 7.6 (2-11) % Eos % (Auto) 1.8 (0-4) % Baso % (Auto) 1.0 (0-2) % Lymph # (Auto) 2.2 (1.2-4.9) X10*3/uL Mcdowell # (Auto) 0.5 (0.1-1.2) X10*3/uL Eos # (Auto) 0.1 (0.0-0.4) X10*3/uL Baso # (Auto) 0.1 (0.0-0.2) X10*3/uL Abs Immat Gran (auto) 0.02 (0.00-0.03) X10*3/uL Absolute Neuts (auto) 4.2 (2.0-8.3) x10*3/uL Absolute Nucleated RBC 0.000 (0.0-0.012) X10*3/uL Nucleated RBC % (auto) 0.0 (0.0-0.2) /100WBC PT 11.0 (10.0-13.1) SEC INR 1.0 (0.9-1.1) APTT 35.0 (26.0-36.4) SEC Sodium 136 (135-145) mmol/L Potassium 3.7 (3.3-5.1) mmol/L Chloride 99 (96-108) mmol/L Carbon Dioxide 25 (22-29) mmol/L Anion Gap 16 (12-20) BUN 22 H (9-16) mg/dL Creatinine 1.38 (0.5-1.4) mg/dL Estim Creat Clear Calc 54.7 Estimated GFR 41 Random Glucose 107 (60-115) mg/dL Calcium 9.6 D (8.4-10.2) mg/dL Total Bilirubin 0.9 (0.0-1.0) mg/dL AST 44 H (5-31) U/L ALT 42 H (0-31) U/L Alkaline Phosphatase 117 (39-117) U/L Troponin I High Sens (<3.5-17.0) ng/L Total Protein 7.7 (6.5-8.0) g/dL Albumin 4.4 (3.5-5.0) g/dL Lipase 51 (8-78) U/L Ethyl Alcohol < 10 mg/dL 10/02/22 Range/Units 20:33 WBC (4.8-10.8) X10*3/uL RBC (4.20-5.50) X10*6/uL Hgb (12.0-16.0) g/dl Hct (37.0-47.0) % MCV (80.0-98.0) fL MCH (27.0-33.0) pg MCHC (31.0-35.0) g/dl RDW (11.0-16.0) % Plt Count (160-400) X10*3/uL MPV (9.4-12.3) fL Immature Gran % (Auto) (0.0-0.4) % Neut % (Auto) (45-73) % Lymph % (Auto) (20-40) % Mcdowell % (Auto) (2-11) % Eos % (Auto) (0-4) % Baso % (Auto) (0-2) % Lymph # (Auto) (1.2-4.9) X10*3/uL Mcdowell # (Auto) (0.1-1.2) X10*3/uL Eos # (Auto) (0.0-0.4) X10*3/uL Baso # (Auto) (0.0-0.2) X10*3/uL Abs Immat Gran (auto) (0.00-0.03) X10*3/uL Absolute Neuts (auto) (2.0-8.3) x10*3/uL Absolute Nucleated RBC (0.0-0.012) X10*3/uL Nucleated RBC % (auto) (0.0-0.2) /100WBC PT (10.0-13.1) SEC INR (0.9-1.1) APTT (26.0-36.4) SEC Sodium (135-145) mmol/L Potassium (3.3-5.1) mmol/L Chloride (96-108) mmol/L Carbon Dioxide (22-29) mmol/L Anion Gap (12-20) BUN (9-16) mg/dL Creatinine (0.5-1.4) mg/dL Estim Creat Clear Calc Estimated GFR Random Glucose (60-115) mg/dL Calcium (8.4-10.2) mg/dL Total Bilirubin (0.0-1.0) mg/dL AST (5-31) U/L ALT (0-31) U/L Alkaline Phosphatase (39-117) U/L Troponin I High Sens 11.0 (<3.5-17.0) ng/L Total Protein (6.5-8.0) g/dL Albumin (3.5-5.0) g/dL Lipase (8-78) U/L Ethyl Alcohol mg/dL <Benny López MD - Last Filed: 10/03/22 01:59> ECG Data Attestation: I personally reviewed and interpreted this ECG as follows: <Benny López MD - Last Filed: 10/03/22 01:59> Interpretation: Sinus tachycardia with a rate of 120 to. Id nonspecific T-wave changes. No significant change from 06/04/2022 <Benny López MD - Last Filed: 10/03/22 01:59> Discharge Plan Discharge Clinical Impression: Alcohol withdrawal, Nausea <AGNIESZKA Bauer - Last Filed: 10/05/22 10:11> Patient Disposition: Home, Self-Care <AGNIESZKA Bauer - Last Filed: 10/05/22 10:11> Instructions: Abuse of Alcohol (ED), Acute Nausea and Vomiting (ED), Alcohol Withdrawal (ED) <AGNIESZKA Bauer - Last Filed: 10/05/22 10:11> Additional Instructions: Use ondansetron as prescribed for nausea. Use lorazepam as needed for any tremulousness or other alcohol withdrawal symptoms. Return for any new or worsened symptoms <AGNIESZKA Bauer - Last Filed: 10/05/22 10:11> Prescriptions: New ondansetron 4 mg tablet,disintegrating 4 mg PO Q6H PRN (Reason: nausea and vomiting) Qty: 10 0RF lorazepam [Ativan] 1 mg tablet 1 - 2 mg PO Q6H PRN (Reason: alcohol withdrawal) Qty: 14 0RF No Action (DME) ACL defiance brace See Rx Instructions .ROUTE .MEDSUPPLY Qty: 1 0RF Rx Instructions: n/a albuterol sulfate 90 mcg/actuation HFA aerosol inhaler 2 puff inhalation Q4-6H PRN (Reason: shortness of breath or wheezing) Qty: 8.5 0RF thiamine HCl (vitamin B1) 100 mg tablet 1 tab PO DAILY omeprazole 20 mg capsule,delayed release(DR/EC) 1 cap PO DAILY@0630 folic acid 1 mg tablet 1 tab PO DAILY magnesium oxide 400 mg (241.3 mg magnesium) Tablet 400 mg PO BIDPC 30 Days Qty: 60 0RF chlorthalidone 25 mg tablet 1 tab PO DAILY carvedilol 3.125 mg tablet 1 tab PO BID docusate sodium 100 mg capsule 1 cap PO BID PRN (Reason: Constipation) cholecalciferol (vitamin D3) [Vitamin D3] 25 mcg (1,000 unit) capsule 1 cap PO QAM duloxetine 20 mg capsule,delayed release(DR/EC) 1 cap PO DAILY Certavite-Antioxidant 18-400 mg-mcg tablet 1 tab PO DAILY acetaminophen 500 mg tablet 1 tab PO Q6-8H PRN (Reason: fever) cyclobenzaprine 10 mg tablet 10 mg PO BEDTIME PRN (Reason: muscle spasm) Qty: 7 0RF lidocaine 5 % adhesive patch,medicated 1 patch topical DAILY PRN (Reason: pain) Qty: 15 0RF Rx Instructions: leave on most painful area for up to 12 hrs prednisone 20 mg tablet 20 mg PO DAILY 5 Days Qty: 5 0RF lisinopril 40 mg tablet 40 mg PO QAM <AGNIESZKA Bauer - Last Filed: 10/05/22 10:11> Interventions: ED Discharge Assessment Last Done: 10/03/22 01:45 <AGNIESZKA Bauer - Last Filed: 10/05/22 10:11> Discharge Date/Time: 10/03/22 01:46 <AGNIESZKA Bauer - Last Filed: 10/05/22 10:11>
--- NOTE | 2022-10-02 20:04 | ECG_ITS ---
Test Reason : sob Blood Pressure : / mmHG Vent. Rate : 122 BPM Atrial Rate : 122 BPM P-R Int : 152 ms QRS Dur : 084 ms QT Int : 326 ms P-R-T Axes : 072 023 074 degrees QTc Int : 464 ms Sinus tachycardia Otherwise normal ECG When compared with ECG of 04-JUN-2022 23:17, Nonspecific T wave abnormality, improved in Lateral leads Referred By: Leo Valdivia Electronically Signed By:Jameson Jeffries
[2022-10-02 20:39] LABS: MANUAL DIFF FLAG NO
[2022-10-02 20:41] LABS: Basophils Absolute Auto 0.1 X10*3/uL (0.0-0.2); Eosinophils Absolute Auto 0.1 X10*3/uL (0.0-0.4); Eosinophils Percent Auto 1.8 % (0-4); Hematocrit 35.3 % (37.0-47.0); Hemoglobin 12.2 g/dl (12.0-16.0); Imm Gran Abs Auto 0.02 X10*3/uL (0.00-0.03); Imm Gran Pct Auto 0.3 % (0.0-0.4); Lymphocytes Absolute Auto 2.2 X10*3/uL (1.2-4.9); Lymphocytes Percent Auto 30.3 % (20-40); Mean Corpuscular HGB Conc 34.6 g/dl (31.0-35.0); Mean Corpuscular Hemoglobin 31.1 pg (27.0-33.0); Mean Corpuscular Volume 90.1 fL (80.0-98.0); Mean Platelet Volume 9.9 fL (9.4-12.3); Monocytes Absolute Auto 0.5 X10*3/uL (0.1-1.2); Monocytes Percent Auto 7.6 % (2-11); Neutrophils Absolute Auto 4.2 x10*3/uL (2.0-8.3); Platelet Count 282 X10*3/uL (160-400); Red Blood Count 3.92 X10*6/uL (4.20-5.50); Red Cell Distribution Width 14.8 % (11.0-16.0); White Blood Count 7.1 X10*3/uL (4.8-10.8)
[2022-10-02 21:00] LABS: Alanine Aminotransferase 42 U/L (0-31); Albumin Level 4.4 g/dL (3.5-5.0); Alkaline Phosphatase 117 U/L (39-117); Anion Gap 16 (12-20); Aspartate Amino Transferase 44 U/L (5-31); Bilirubin Total 0.9 mg/dL (0.0-1.0); Blood Urea Nitrogen 22 mg/dL (9-16); Calcium 9.6 mg/dL (8.4-10.2); Carbon Dioxide 25 mmol/L (22-29); Chloride 99 mmol/L (96-108); Creatinine Clr Calc Pharmacy 54.7; Estimated Glomerular Filt Rate 41; Ethanol < 10 mg/dL; Glucose Random 107 mg/dL (60-115); Lipase 51 U/L (8-78); Potassium 3.7 mmol/L (3.3-5.1); Sodium 136 mmol/L (135-145); Total Protein 7.7 g/dL (6.5-8.0)
--- OUTSIDE RECORDS SUMMARY | 2022-10-02 22:33 | XMS_ITS | Continuity of Care Document ---
:1975 Author Organization [facility] Address [address] [place] [id number]- Care Team Providers Name Role Phone Shereen Latham MD Primary Care Physician [phone] Encounter [facility] [place] Date(s): 07/24/22 - 08/23/22 [facility] Endocrinology and Diabetes [address] [place] [id number] Allergies, Adverse Reactions, Alerts Substance Reaction [...] Sex Patient Care team information PersonnelName: Noa NOLASCO , Shereen Diallo Address: Address: [address] [place] [address] [address] [place] [address]
--- OUTSIDE RECORDS SUMMARY | 2022-10-02 22:33 | XMS_ITS | Continuity of Care Document ---
:1975 Author Organization [facility] Address [address] [place] [phone]- Care Team Providers Name Role Phone Shereen Latham MD Primary Care Physician Encounter [facility] [place] Date(s): 09/15/22 - 09/15/[address] [id number] Discharge Disposition: A-D/C Home Attending Physician: Yvonne Aguayo MD Admitting Physician: Yvonne Aguayo MD Referring Physician: Yvonne Aguayo MD Allergies, Adverse Reactions, Alerts Substance Reaction [...] Post traumatic Confirmed Active stress disorder (PTSD) Vital Signs Most recent to oldest [Reference Range]: 1 Height 170 cm (09/15/22 8:00 AM) Weight 86 kg (09/15/22 8:00 AM) Oxygen Saturation [94-100 %] 100 % (09/15/22 8:00 AM) Pulse Rate [55-90 bpm] 90 bpm (09/15/22 8:00 AM) Blood Pressure [90-138/55-84 mm Hg] 125/89 mm Hg (09/15/22 8:00 AM) Respiratory Rate [16-30 br/min] 18 br/min (09/15/22 8:00 AM) Temperature [96.8-100.4 DegF] 97.9 DegF (09/15/22 8:00 AM) Mode of Delivery (Oxygen) Room air (09/15/22 8:00 AM) Blood pressure sites Arm, left (09/15/22 8:00 AM) Temperature Route Oral (09/15/22 8:00 AM) Dry Weight 86 kg (09/15/22 8:00 AM) Social History Social History Type Response Tobacco Other: 1-2 cigarettes/day. Sex Hospital Progress note Mera Vinson RN: PERFORM, SIGN, VERIFY Event Display: Progress Note Hospital Authored Date: [id number] Patient: GRACE RESTREPO Age: 46 years Sex: Female : 1975 Associated Diagnoses: None Author: Mera Vinson RN Discharge Information Functional Assessment patient on S1500 today for saline suppression test. A&xo3, VSS. arrived fasting saying that she was told from the MD office to fast. test done as ordered and followed the guideline orders. tolerated well. VSS post. IV removed. d/c instructions re: the test given and left the unit with all belongings and in stable condition. . Note Han Cruz: PERFORM Event Display: Patient Education Leaflets Authored Date: Understanding Primary Aldosteronism ?? [id number] Understanding Primary Aldosteronism Primary aldosteronism (PA) is a hormone disorder. It occurs when the adrenal glands make too much of the hormone aldosterone. The adrenal glands sit at the top of the kidneys. They also make other hormones, such as cortisol. Aldosterone helps control the levels of sodium and potassium in the body. When you have too much ofthis hormone, your body builds up sodium and may lose potassium. Too much sodium can cause your blood pressure to rise. PA often leads to high blood pressure. How to say it [id number] ?? What causes primary aldosteronism? The most common cause of PA is a benign tumor on one of the adrenal glands. This condition is called Conn syndrome. PA may also occur when one or both adrenal glands are overactive. They make too much aldosterone. In rare cases, a genetic disorder or cancer may cause PA. ?? Symptoms of primary aldosteronism PA often may not cause any symptoms. The only sign may be high blood pressure. People with PA oftenhave to take 3 or more medicines to control their blood pressure levels. Blood tests may also show high levels of sodium and low levels of potassium in the body. Some people with PA may also have: ??? Muscle weakness or cramps ??? Numbness in the arms and legs ??? Extreme thirst ??? Fatigue ??? Frequent urination ?? Treatment for primary aldosteronism A blood test can tell if you likely have PA. You will also need other tests to confirm that you have the condition. These tests will help direct treatment. Your healthcare provider may order a computed tomography (CT) scan. This test looks for growths on the adrenal glands. You will likely also have adrenal vein sampling. This test measures how much aldosterone each gland is making. If your healthcare provider finds a problem with only one adrenal gland, then surgery is the main treatment. Taking out that gland will often lower your blood pressure. It may even cure high blood pressure. If both glands are causing the hormone problem, then you will likely need: ??? Medicines. Your healthcare provider may give you medicine that blocks the effects of aldosterone. You may also have to keep taking high blood pressure medicines. ??? Lifestyle changes. Eating a diet low in sodium can help lower your blood pressure. So, too, can losing weight, if needed, exercising, and not drinking alcohol. ?? Possible complications of primary aldosteronism Untreated PA may lead to: ??? Heart attack ??? Stroke ??? Heart failure ??? Atrial fibrillation ??? Kidney disease In many cases, family members with high blood pressure may be advised to be tested for primary aldosteronism. People with primary hyperaldosteronism are at greater risk of developing type 2 diabetes and metabolic syndrome and so should be screened regularly for these conditions. ?? When to call your healthcare provider Call your healthcare provider right away if you have any of these: ??? Fever of 100.4??F (38??C) orhigher, or as directed by your healthcare provider ??? Symptoms that don???t get better, or get worse ??? New symptoms ?? Last Reviewed Date: 2021 ?? [id number] [employer]. All rights reserved. This information is not intended as a substitute for professional medical care. Always follow your healthcare professional's instructions. ?? Patient Care team information Care Team PersonnelName: Shereen Latham MD Position: [facility] Outreach Member Role: PCP Address: Address: [address] [facility] [address] [place] [address]- Care Team Related PersonsName: TED NIELSON Address: home [address] [place] [address] Name: RAMÓN NIELSON Address: home [address] [place] [address] Name: MARITO MEZA Address: [address] [place] [address]
--- NOTE | 2022-10-02 22:40 | ED.GENADULT ---
HPI - General Adult General Chief complaint: General Medical Stated complaint: withdreawls, tightness in chest, vomiting, mutlple Time Seen by Provider: 10/02/22 22:28 Source: patient Limitations: no limitations History of Present Illness HPI narrative: This is a 46-year-old female who admits having been binge drinking for about a week, with the last drink yesterday morning. The patient feels like she is in alcohol withdrawal, as noted that her heart seems to be going fast, she has had chills, vomiting, diarrhea. She denies any fever. She has also noted that when she wiped after bowel movement there is a little bit of bright red blood. She denies any vomiting of blood. She has some lower abdominal discomfort, denies upper abdominal pain. She denies any history of pancreatitis. Related Data Home Medications Medication Instructions Recorded Confirmed folic acid 1 mg tablet 1 tab PO DAILY 09/30/21 06/04/22 omeprazole 20 mg capsule,delayed 1 cap PO DAILY@0630 09/30/21 06/04/22 release thiamine HCl (vitamin B1) 100 mg 1 tab PO DAILY 09/30/21 06/04/22 tablet lisinopril 40 mg tablet 40 mg PO QAM 10/15/21 06/04/22 acetaminophen 500 mg tablet 1 tab PO Q6-8H PRN fever 06/04/22 06/04/22 carvedilol 3.125 mg tablet 1 tab PO BID 06/04/22 06/04/22 chlorthalidone 25 mg tablet 1 tab PO DAILY 06/04/22 06/04/22 cholecalciferol (vitamin D3) 25 1 cap PO QAM 06/04/22 06/04/22 mcg (1,000 unit) capsule (Vitamin D3) docusate sodium 100 mg capsule 1 cap PO BID PRN Constipation 06/04/22 06/04/22 duloxetine 20 mg capsule,delayed 1 cap PO DAILY 06/04/22 06/04/22 release multivitamin-ferrous 1 tab PO DAILY 06/04/22 06/04/22 fumarate-folic acid 18 mg-400 mcg tablet (Certavite-Antioxidant) Previous Rx's Medication Instructions Recorded ACL defiance brace #1 ea 07/29/21 albuterol sulfate 90 mcg/actuation 2 puff inhalation Q4-6H PRN 11/11/21 aerosol inhaler shortness of breath or wheezing #8.5 grams magnesium oxide 400 mg (241.3 mg 400 mg PO BIDPC 30 days #60 tabs 10/02/21 magnesium) tablet cyclobenzaprine 10 mg tablet 10 mg PO BEDTIME PRN muscle spasm 08/11/22 #7 tabs lidocaine 5 % topical patch 1 patch topical DAILY PRN pain #15 08/11/22 ea prednisone 20 mg tablet 20 mg PO DAILY 5 days #5 tabs 08/11/22 lorazepam 1 mg tablet (Ativan) 1 - 2 mg PO Q6H PRN alcohol 10/03/22 withdrawal #14 tabs ondansetron 4 mg disintegrating 4 mg PO Q6H PRN nausea and 10/03/22 tablet vomiting #10 tabs Allergies Allergy/AdvReac Type Severity Reaction Status Date / Time amoxicillin [AMOXICILLIN] Allergy Intermediate rash, Verified 10/02/22 20:03 rash/itching Sulfa (Sulfonamide Allergy Intermediate rash/itchin Verified 10/02/22 20:03 Antibiotics) g sulfamethoxazole Allergy Intermediate RASH Verified 10/02/22 20:03 [From BACTRIM] trimethoprim [From BACTRIM] Allergy Intermediate RASH Verified 10/02/22 20:03 hydrocodone [Hydrocodone] Allergy Mild ITCH Verified 10/02/22 20:03 ibuprofen [From Motrin] Allergy Mild UPSET Verified 10/02/22 20:03 STOMACH latex [Latex] Allergy Mild ITCH Verified 10/02/22 20:03 Review of Systems Review of Systems: Yes all other systems are reviewed and are negative Constitutional: Constitutional: Reports as per HPI, Reports chills and Denies fever(s) Eyes: Eyes: Reports as per HPI and Reports no additional eye complaints ENT: Reports system reviewed and no additional complaints, except as documented, Reports as per HPI, Denies nasal congestion, Denies nasal discharge and Denies sore throat Cardiovascular: Cardiovascular: Reports as per HPI, Reports chest pain, Reports rapid heart rate and Denies dyspnea Comments: Palpitations/pounding Respiratory: Respiratory: Reports as per HPI, Denies cough and Denies dyspnea Gastrointestinal: Gastrointestinal: Reports as per HPI, Reports abdominal pain, Denies melena, Reports hematochezia, Denies coffee ground emesis, Reports diarrhea, Reports nausea and Reports vomiting Genitourinary: Genitourinary: Reports as per HPI, Denies hematuria, Denies urinary frequency and Denies dysuria Musculoskeletal: Musculoskeletal: Reports no additional musculoskeletal complaints and Denies numbness Integumentary/Breasts: Skin/Breast: Reports as per HPI and Denies rash Neurologic: Reports as per HPI, Denies focal weakness and Denies numbness Psychiatric: Psychiatric: Reports no additional psychiatric complaints and Reports as per HPI Endocrine: Endocrine: Reports no additional endocrine complaints and Reports as per HPI Hematologic/Lymphatic: Hematologic/Lymphatic: Reports no additional hematologic/lymphatic complaints, Reports as per HPI and Reports other (No peripheral edema) [facility] Past Medical History Medical History Anxiety Breast cancer H/O ETOH abuse History of COVID-19 History of low potassium Hypertension Panic attack Uncontrolled hypertension Surgical History H/O: hysterectomy History of breast lump/mass excision History of carpal tunnel release Hx of tubal ligation Family History Family History Mother Heart disease Alzheimers disease Social History Social History Household Members: None Housing: Apartment Do you presently have visiting nurse or other home services: No Alcohol intake: current Alcohol intake frequency: a few times a week Alcohol type: hard liquor Patient Tobacco Use Status: Current someday Tobacco user Tobacco use type: Cigarette Cigarettes Per Day: 10 Advance Directives: Yes Advance Directives on File: Yes Advance Directives Date on File: 02/11/22 service: No Current occupational status: disabled Physical Exam ED Vital Signs: Vital Signs - 24 hr 10/02/22 19:59 10/02/22 23:18 Temperature 97.3 F 98.4 F Pulse Rate 123 H 101 H Respiratory Rate 20 22 H Blood Pressure 132/96 H 161/99 H Pulse Oximetry 98 99 Oxygen Delivery Method Room Air Room Air BMI result Body Mass Index 28.1 Const General: no acute distress Orientation/consciousness: patient oriented x3 HENMT Head: Yes normal to inspection General nose exam: Normal external nose present Mouth: moist mucous membranes Throat: Yes posterior oropharynx normal, Yes tonsils normal and Yes uvula midline Eyes Eyelids: Yes eyelids normal Conjunctivae: conjunctivae normal Pupils: Equal, round and reactive pupils present Neck Neck: Yes supple Resp Effort & Inspection: normal respiratory effort Auscultation: clear to auscultation bilaterally Cardio Rate: abnormal rate and tachycardic Rhythm: regular rhythm Heart sounds: S1 normal heart sound present, S2 normal heart sound present, no gallops, no murmurs and no rubs GI Inspection: No distended Palpation (GI): Soft to palpation and nontender Auscultation: normal bowel sounds Skin General skin exam: other (Warm and dry) Neuro Other: Patient not tremulous General: patient oriented x3 and CN's II-XI intact bilaterally Cranial nerves: Yes Equal, round and reactive pupils present Extrem General: Yes no pedal edema Psych Affect: normal affect Attitude: cooperative Medications Administered Discontinued Medications Generic Name Dose Route Start Last Admin Trade Name Freq PRN Reason Stop Dose Admin Sodium Chloride 1,000 mls @ 999 mls/hr 10/02/22 22:45 10/02/22 23:58 Ns IV 10/02/22 23:45 Infused .Q1H1M CLAUDIA Infusion Lorazepam 2 mg 10/02/22 22:37 10/02/22 22:48 Lorazepam 1 Mg Tablet PO 10/02/22 22:38 2 mg ONCE ONE Administration Ondansetron HCl 4 mg 10/02/22 22:36 10/02/22 22:48 Ondansetron Hcl 4 Mg/2 Ml Vial IVPUSH 10/02/22 22:37 4 mg ONCE ONE Administration Medical Decision Making MDM Narrative Medical decision making narrative: The patient was treated with normal saline 1 L IV, lorazepam 2 mg p.o., ondansetron 4 mg sublingual. Patient improving her symptoms. Tachycardia improved. She is safe to be treated as an outpatient with lorazepam and ondansetron Lab Data Result diagrams: 10/02/22 20:33 10/02/22 20:33 Labs: Lab Results 10/02/22 10/02/22 10/02/22 Range/Units 20:33 20:33 20:33 WBC 7.1 (4.8-10.8) X10*3/uL RBC 3.92 L (4.20-5.50) X10*6/uL Hgb 12.2 (12.0-16.0) g/dl Hct 35.3 L (37.0-47.0) % MCV 90.1 (80.0-98.0) fL MCH 31.1 (27.0-33.0) pg MCHC 34.6 (31.0-35.0) g/dl RDW 14.8 (11.0-16.0) % Plt Count 282 D (160-400) X10*3/uL MPV 9.9 (9.4-12.3) fL Immature Gran % (Auto) 0.3 (0.0-0.4) % Neut % (Auto) 59.0 (45-73) % Lymph % (Auto) 30.3 (20-40) % Davidson % (Auto) 7.6 (2-11) % Eos % (Auto) 1.8 (0-4) % Baso % (Auto) 1.0 (0-2) % Lymph # (Auto) 2.2 (1.2-4.9) X10*3/uL Davidson # (Auto) 0.5 (0.1-1.2) X10*3/uL Eos # (Auto) 0.1 (0.0-0.4) X10*3/uL Baso # (Auto) 0.1 (0.0-0.2) X10*3/uL Abs Immat Gran (auto) 0.02 (0.00-0.03) X10*3/uL Absolute Neuts (auto) 4.2 (2.0-8.3) x10*3/uL Absolute Nucleated RBC 0.000 (0.0-0.012) X10*3/uL Nucleated RBC % (auto) 0.0 (0.0-0.2) /100WBC PT 11.0 (10.0-13.1) SEC INR 1.0 (0.9-1.1) APTT 35.0 (26.0-36.4) SEC Sodium 136 (135-145) mmol/L Potassium 3.7 (3.3-5.1) mmol/L Chloride 99 (96-108) mmol/L Carbon Dioxide 25 (22-29) mmol/L Anion Gap 16 (12-20) BUN 22 H (9-16) mg/dL Creatinine 1.38 (0.5-1.4) mg/dL Estim Creat Clear Calc 54.7 Estimated GFR 41 Random Glucose 107 (60-115) mg/dL Calcium 9.6 D (8.4-10.2) mg/dL Total Bilirubin 0.9 (0.0-1.0) mg/dL AST 44 H (5-31) U/L ALT 42 H (0-31) U/L Alkaline Phosphatase 117 (39-117) U/L Troponin I High Sens (<3.5-17.0) ng/L Total Protein 7.7 (6.5-8.0) g/dL Albumin 4.4 (3.5-5.0) g/dL Lipase 51 (8-78) U/L Ethyl Alcohol < 10 mg/dL 10/02/22 Range/Units 20:33 WBC (4.8-10.8) X10*3/uL RBC (4.20-5.50) X10*6/uL Hgb (12.0-16.0) g/dl Hct (37.0-47.0) % MCV (80.0-98.0) fL MCH (27.0-33.0) pg MCHC (31.0-35.0) g/dl RDW (11.0-16.0) % Plt Count (160-400) X10*3/uL MPV (9.4-12.3) fL Immature Gran % (Auto) (0.0-0.4) % Neut % (Auto) (45-73) % Lymph % (Auto) (20-40) % Davidson % (Auto) (2-11) % Eos % (Auto) (0-4) % Baso % (Auto) (0-2) % Lymph # (Auto) (1.2-4.9) X10*3/uL Davidson # (Auto) (0.1-1.2) X10*3/uL Eos # (Auto) (0.0-0.4) X10*3/uL Baso # (Auto) (0.0-0.2) X10*3/uL Abs Immat Gran (auto) (0.00-0.03) X10*3/uL Absolute Neuts (auto) (2.0-8.3) x10*3/uL Absolute Nucleated RBC (0.0-0.012) X10*3/uL Nucleated RBC % (auto) (0.0-0.2) /100WBC PT (10.0-13.1) SEC INR (0.9-1.1) APTT (26.0-36.4) SEC Sodium (135-145) mmol/L Potassium (3.3-5.1) mmol/L Chloride (96-108) mmol/L Carbon Dioxide (22-29) mmol/L Anion Gap (12-20) BUN (9-16) mg/dL Creatinine (0.5-1.4) mg/dL Estim Creat Clear Calc Estimated GFR Random Glucose (60-115) mg/dL Calcium (8.4-10.2) mg/dL Total Bilirubin (0.0-1.0) mg/dL AST (5-31) U/L ALT (0-31) U/L Alkaline Phosphatase (39-117) U/L Troponin I High Sens 11.0 (<3.5-17.0) ng/L Total Protein (6.5-8.0) g/dL Albumin (3.5-5.0) g/dL Lipase (8-78) U/L Ethyl Alcohol mg/dL Discharge Plan Discharge Clinical Impression: Alcohol withdrawal, Nausea Patient Disposition: Home, Self-Care Instructions: Abuse of Alcohol (ED), Acute Nausea and Vomiting (ED), Alcohol Withdrawal (ED) Additional Instructions: Use ondansetron as prescribed for nausea. Use lorazepam as needed for any tremulousness or other alcohol withdrawal symptoms. Return for any new or worsened symptoms Prescriptions: New ondansetron 4 mg tablet,disintegrating 4 mg PO Q6H PRN (Reason: nausea and vomiting) Qty: 10 0RF lorazepam [Ativan] 1 mg tablet 1 - 2 mg PO Q6H PRN (Reason: alcohol withdrawal) Qty: 14 0RF No Action (DME) ACL defiance brace See Rx Instructions .ROUTE .MEDSUPPLY Qty: 1 0RF Rx Instructions: n/a albuterol sulfate 90 mcg/actuation HFA aerosol inhaler 2 puff inhalation Q4-6H PRN (Reason: shortness of breath or wheezing) Qty: 8.5 0RF thiamine HCl (vitamin B1) 100 mg tablet 1 tab PO DAILY omeprazole 20 mg capsule,delayed release(DR/EC) 1 cap PO DAILY@0630 folic acid 1 mg tablet 1 tab PO DAILY magnesium oxide 400 mg (241.3 mg magnesium) Tablet 400 mg PO BIDPC 30 Days Qty: 60 0RF chlorthalidone 25 mg tablet 1 tab PO DAILY carvedilol 3.125 mg tablet 1 tab PO BID docusate sodium 100 mg capsule 1 cap PO BID PRN (Reason: Constipation) cholecalciferol (vitamin D3) [Vitamin D3] 25 mcg (1,000 unit) capsule 1 cap PO QAM duloxetine 20 mg capsule,delayed release(DR/EC) 1 cap PO DAILY Certavite-Antioxidant 18-400 mg-mcg tablet 1 tab PO DAILY acetaminophen 500 mg tablet 1 tab PO Q6-8H PRN (Reason: fever) cyclobenzaprine 10 mg tablet 10 mg PO BEDTIME PRN (Reason: muscle spasm) Qty: 7 0RF lidocaine 5 % adhesive patch,medicated 1 patch topical DAILY PRN (Reason: pain) Qty: 15 0RF Rx Instructions: leave on most painful area for up to 12 hrs prednisone 20 mg tablet 20 mg PO DAILY 5 Days Qty: 5 0RF lisinopril 40 mg tablet 40 mg PO QAM Interventions: ED Discharge Assessment Last Done: 10/03/22 01:45 Discharge Date/Time: 10/03/22 01:46
[2022-10-02] MEDS: ondansetron HCL 4 MG/2 ML VIAL IVPUSH (22:48)
[2022-10-02] MEDS: 0.9 % Sodium Chloride 1,000 ML 999 ML IV (22:48)
[2022-10-02] MEDS: LORazepam 1 MG TABLET 2 MG PO (22:48)
[2022-10-02 23:18] VITALS: BP 161/99; PULSE 101; RESP 22; TEMP 36.9; O2SAT 99
== END 2022-10-03 01:46 | disposition home or self-care (01) ==
PROVIDERS: Physician Assistant; Emergency Provider Emergency Medicine; PCP Family Medicine
DX: F10.130 Alcohol abuse with withdrawal, uncomplicated (principal); Y90.0 Blood alcohol level of less than 20 mg/100 ml; R11.0 Nausea; R00.0 Tachycardia, unspecified; F17.210 Nicotine dependence, cigarettes, uncomplicated; Z79.899 Other long term (current) drug therapy
CPT/HCPCS: 36415; 80053; 82077; 83690; 84484; 85025; 85610; 85730; 93005; 96361; 96374; 99284; J2405

== ENCOUNTER 2022-12-07 23:13 | Emergency (ER) | payer MEDICAID, SELFPAY ==
--- NOTE | 2022-12-07 23:22 | ECG_ITS ---
Test Reason : cp Blood Pressure : / mmHG Vent. Rate : 115 BPM Atrial Rate : 115 BPM P-R Int : 154 ms QRS Dur : 076 ms QT Int : 314 ms P-R-T Axes : 079 044 115 degrees QTc Int : 434 ms Sinus tachycardia T wave abnormality, consider lateral ischemia Abnormal ECG When compared with ECG of 02-OCT-2022 20:45, T wave inversion now evident in Anterolateral leads Referred By: Generic ED Physician Electronically Signed By:KENNEDI BOURGEOIS MD
[2022-12-07 23:33] VITALS: BP 153/107; PULSE 119; RESP 20; TEMP 36.5; O2SAT 98; BMI 24.3
--- OUTSIDE RECORDS SUMMARY | 2022-12-07 23:58 | XMS_ITS | Continuity of Care Document ---
:1975 Author Organization [facility] Address [address] [place] [phone]- Care Team Providers Name Role Phone Shereen Latham MD Primary Care Physician [phone] [place] [facility] [place] - 11/05/22 [facility] [address] [place] [id number]- Allergies, Adverse Reactions, Alerts Substance Reaction Severity [...] 1-2 cigarettes/day. Sex Patient Care team information Care Team PersonnelName: Noa NOLASCO , Shereen Diallo Position: [facility] Outreach Member Role: PCP Address: Address: [address] [place] [address] [place] [phone]- [place] Care Team Related PersonsName: NIELSONTED Address: home [address] [place] [address] Name: RAMÓN NIELSON Address: [address] [place] [address] Name: MARITO MEZA Address: home [address] [place] [address]
--- OUTSIDE RECORDS SUMMARY | 2022-12-07 23:58 | XMS_ITS | Continuity of Care Document ---
:1975 Author Organization [facility] Address [address] [place] [phone]- Care Team Providers Name Role Phone Shereen Latham MD Primary Care Physician [place] [facility] [place] - 10/04/22 [facility] [address] [place] [id number] Allergies, Adverse Reactions, Alerts Substance Reaction [...] Care Team PersonnelName: Shereen Latham MD Position: [facility] Outreach Member Role: PCP Address: Address: [address] [place] [address] [address] [place] [address]- Care Team Related PersonsName: TED NIELSON Address: [address] [place] [address] Name: RAMÓN NIELSON Address: home [address] [place] [address] Name: MARITO MEZA Address: [address] [place] [address]
[2022-12-08 00:10] LABS: MANUAL DIFF FLAG NO
[2022-12-08 00:11] LABS: Basophils Absolute Auto 0.1 X10*3/uL (0.0-0.2); Basophils Percent Auto 1.2 % (0-2); Eosinophils Absolute Auto 0.1 X10*3/uL (0.0-0.4); Eosinophils Percent Auto 0.7 % (0-4); Hematocrit 38.8 % (37.0-47.0); Hemoglobin 13.1 g/dl (12.0-16.0); Imm Gran Abs Auto 0.02 X10*3/uL (0.00-0.03); Imm Gran Pct Auto 0.3 % (0.0-0.4); Lymphocytes Absolute Auto 1.4 X10*3/uL (1.2-4.9); Lymphocytes Percent Auto 21.2 % (20-40); Mean Corpuscular HGB Conc 33.8 g/dl (31.0-35.0); Mean Platelet Volume 9.8 fL (9.4-12.3); Monocytes Absolute Auto 0.5 X10*3/uL (0.1-1.2); Monocytes Percent Auto 7.9 % (2-11); Neutrophils Absolute Auto 4.7 x10*3/uL (2.0-8.3); Neutrophils Percent Auto 68.7 % (45-73); Platelet Count 252 X10*3/uL (160-400); Red Blood Count 4.36 X10*6/uL (4.20-5.50); Red Cell Distribution Width 15.3 % (11.0-16.0); White Blood Count 6.8 X10*3/uL (4.8-10.8)
[2022-12-08 00:25] LABS: Ethanol < 10 mg/dL
[2022-12-08 00:33] LABS: Troponin-I High Sensitivity 20.4 ng/L (<3.5-17.0)
[2022-12-08 01:44] LABS: Alanine Aminotransferase 66 U/L (0-31); Albumin Level 4.6 g/dL (3.5-5.0); Alkaline Phosphatase 95 U/L (39-117); Anion Gap 28 (12-20); Aspartate Amino Transferase 74 U/L (5-31); Bilirubin Total 1.7 mg/dL (0.0-1.0); Blood Urea Nitrogen 20 mg/dL (9-16); Calcium 9.8 mg/dL (8.4-10.2); Carbon Dioxide 22 mmol/L (22-29); Chloride 92 mmol/L (96-108); Creatinine Clr Calc Pharmacy 52.9; Estimated Glomerular Filt Rate 40; Glucose Random 110 mg/dL (60-115); Potassium 3.6 mmol/L (3.3-5.1); Sodium 138 mmol/L (135-145); Total Protein 7.7 g/dL (6.5-8.0)
--- NOTE | 2022-12-08 06:58 | ED_ITS ---
HPI - Alcohol General Chief Complaint: ETOH/Substance Use Stated Complaint: withdrawl, anxiety, chest pain Time Seen by Provider: 12/08/22 03:27 History of Present Illness HPI narrative: Patient is a 47-year-old female with a long history of alcohol abuse. Was binge drinking for the last 4-5 days. The proximally 36 hours ago. Came in seeking detox. Patient feels very shaky. Have nausea unable to eat. Positive generalized malaise. She is from home. No coronary issues in the past. MD complaint: alcohol withdrawal Related Data Home Medications Medication Instructions Recorded Confirmed folic acid 1 mg tablet 1 tab PO DAILY 09/30/21 06/04/22 omeprazole 20 mg capsule,delayed 1 cap PO DAILY@0630 09/30/21 06/04/22 release thiamine HCl (vitamin B1) 100 mg 1 tab PO DAILY 09/30/21 06/04/22 tablet lisinopril 40 mg tablet 40 mg PO QAM 10/15/21 06/04/22 acetaminophen 500 mg tablet 1 tab PO Q6-8H PRN fever 06/04/22 06/04/22 carvedilol 3.125 mg tablet 1 tab PO BID 06/04/22 06/04/22 chlorthalidone 25 mg tablet 1 tab PO DAILY 06/04/22 06/04/22 cholecalciferol (vitamin D3) 25 1 cap PO QAM 06/04/22 06/04/22 mcg (1,000 unit) capsule (Vitamin D3) docusate sodium 100 mg capsule 1 cap PO BID PRN Constipation 06/04/22 06/04/22 duloxetine 20 mg capsule,delayed 1 cap PO DAILY 06/04/22 06/04/22 release multivitamin-ferrous 1 tab PO DAILY 06/04/22 06/04/22 fumarate-folic acid 18 mg-400 mcg tablet (Certavite-Antioxidant) Previous Rx's Medication Instructions Recorded ACL defiance brace #1 ea 07/29/21 albuterol sulfate 90 mcg/actuation 2 puff inhalation Q4-6H PRN 09/12/21 aerosol inhaler shortness of breath or wheezing #8.5 grams magnesium oxide 400 mg (241.3 mg 400 mg PO BIDPC 30 days #60 tabs 10/02/21 magnesium) tablet cyclobenzaprine 10 mg tablet 10 mg PO BEDTIME PRN muscle spasm 08/11/22 #7 tabs lidocaine 5 % topical patch 1 patch topical DAILY PRN pain #15 08/11/22 ea prednisone 20 mg tablet 20 mg PO DAILY 5 days #5 tabs 08/11/22 lorazepam 1 mg tablet (Ativan) 1 - 2 mg PO Q6H PRN alcohol 10/03/22 withdrawal #14 tabs ondansetron 4 mg disintegrating 4 mg PO Q6H PRN nausea and 10/03/22 tablet vomiting #10 tabs Allergies Allergy/AdvReac Type Severity Reaction Status Date / Time amoxicillin [AMOXICILLIN] Allergy Intermediate rash, Verified 10/02/22 20:03 rash/itching Sulfa (Sulfonamide Allergy Intermediate rash/itchin Verified 10/02/22 20:03 Antibiotics) g sulfamethoxazole Allergy Intermediate RASH Verified 10/02/22 20:03 [From BACTRIM] trimethoprim [From BACTRIM] Allergy Intermediate RASH Verified 10/02/22 20:03 hydrocodone [Hydrocodone] Allergy Mild ITCH Verified 10/02/22 20:03 ibuprofen [From Motrin] Allergy Mild UPSET Verified 10/02/22 20:03 STOMACH latex [Latex] Allergy Mild ITCH Verified 10/02/22 20:03 Review of Systems Review of Systems: Positive generalized malaise weakness Positive nausea no vomiting Positive palpitation Yes all other systems are reviewed and are negative PMFSH Past Medical History Attestation statement: The following information was validated with the patient. Medical History Anxiety Breast cancer H/O ETOH abuse History of COVID-19 History of low potassium Hypertension Panic attack Uncontrolled hypertension Surgical History H/O: hysterectomy History of breast lump/mass excision History of carpal tunnel release Hx of tubal ligation Family History Family History Mother Heart disease Alzheimers disease Social History Social History Household Members: None Housing: Apartment Do you presently have visiting nurse or other home services: No Alcohol intake: current Alcohol intake frequency: a few times a week Alcohol type: hard liquor Patient Tobacco Use Status: Current someday Tobacco user Tobacco use type: Cigarette Cigarettes Per Day: 10 Advance Directives: Yes Advance Directives on File: Yes Advance Directives Date on File: 02/11/22 service: No Current occupational status: disabled Physical Exam ED Vital Signs: Vital Signs - 24 hr 12/07/22 23:33 Temperature 97.7 F Pulse Rate 119 H Respiratory Rate 20 Blood Pressure 153/107 H Pulse Oximetry 98 Oxygen Delivery Method Room Air BMI result Body Mass Index 24.3 Appearance: Alert. Oriented X3. No acute distress. Eyes: Pupils equal, round and reactive to light. ENT: Pharynx normal. Neck: Normal inspection. Neck supple. No lymph nodes noted. No crepitus CVS: Tachycardic but regular. Pulses normal. Normal S1 and S2 Respiratory: No respiratory distress. Breath sounds normal. No Wheezing. No rales Abdomen: Soft and nontender. No rigidity. No distention. good BS x4 Skin: Skin warm and dry. Normal skin color. Normal skin turgor. Extremities: No lower extremity edema. Neurovascular intact to all extremities. No Lacerations. No Rash Neuro: Oriented X 3. No motor deficit. No sensory deficit. Moving all extermities. No slurred speech Medical Decision Making Medical Decision Making [facility] Narrative: Patient presented today with having elevated heart rate of 120, feels nauseous, feels shaky. Symptoms consistent with withdrawal. IV fluids ordered. Patient's electrolytes was ordered by nursing. Came back positive for having anion gap. Consistent with having alcoholic ketoacidosis. Will offer patient food. Ativan ordered. Zofran ordered for nausea. IV fluid. Will require close monitoring. Patient's troponin also mildly elevated in the 20s. Question rate related will require a repeat troponin. There is some nonspecific T-wave inversion over the lateral leads. Differential Diagnosis Differential Diagnoses: The differential diagnosis associated with the presentation includes Alcohol withdrawal, dehydration, alcoholic ketoacidosis, electrolyte abnormalities Admission/Observation Consideration of admission/observation: Escalation of care including admission/observation considered Lab Data [facility] Lab Attestation statement: I reviewed the patient's lab results. 12/08/22 00:03 12/08/22 00:03 Labs: Lab Results 12/08/22 12/08/22 12/08/22 Range/Units 00:03 00:03 00:03 WBC 6.8 (4.8-10.8) X10*3/uL RBC 4.36 (4.20-5.50) X10*6/uL Hgb 13.1 (12.0-16.0) g/dl Hct 38.8 (37.0-47.0) % MCV 89.0 (80.0-98.0) fL MCH 30.0 (27.0-33.0) pg MCHC 33.8 (31.0-35.0) g/dl RDW 15.3 (11.0-16.0) % Plt Count 252 (160-400) X10*3/uL MPV 9.8 (9.4-12.3) fL Immature Gran % (Auto) 0.3 (0.0-0.4) % Neut % (Auto) 68.7 (45-73) % Lymph % (Auto) 21.2 (20-40) % [place] % (Auto) 7.9 (2-11) % Eos % (Auto) 0.7 (0-4) % Baso % (Auto) 1.2 (0-2) % Lymph # (Auto) 1.4 (1.2-4.9) X10*3/uL [place] # (Auto) 0.5 (0.1-1.2) X10*3/uL Eos # (Auto) 0.1 (0.0-0.4) X10*3/uL Baso # (Auto) 0.1 (0.0-0.2) X10*3/uL Abs Immat Gran (auto) 0.02 (0.00-0.03) X10*3/uL Absolute Neuts (auto) 4.7 (2.0-8.3) x10*3/uL Absolute Nucleated RBC 0.000 (0.0-0.012) X10*3/uL Nucleated RBC % (auto) 0.0 (0.0-0.2) /100WBC Sodium 138 (135-145) mmol/L Potassium 3.6 (3.3-5.1) mmol/L Chloride 92 L (96-108) mmol/L Carbon Dioxide 22 (22-29) mmol/L Anion Gap 28 H (12-20) BUN 20 H (9-16) mg/dL Creatinine 1.39 (0.5-1.4) mg/dL Estim Creat Clear Calc 52.9 Estimated GFR 40 Random Glucose 110 (60-115) mg/dL Calcium 9.8 (8.4-10.2) mg/dL Total Bilirubin 1.7 H (0.0-1.0) mg/dL AST 74 H (5-31) U/L ALT 66 H (0-31) U/L Alkaline Phosphatase 95 (39-117) U/L Troponin I High Sens 20.4 H D (<3.5-17.0) ng/L Total Protein 7.7 (6.5-8.0) g/dL Albumin 4.6 (3.5-5.0) g/dL Ethyl Alcohol mg/dL 12/08/22 Range/Units 00:03 WBC (4.8-10.8) X10*3/uL RBC (4.20-5.50) X10*6/uL Hgb (12.0-16.0) g/dl Hct (37.0-47.0) % MCV (80.0-98.0) fL MCH (27.0-33.0) pg MCHC (31.0-35.0) g/dl RDW (11.0-16.0) % Plt Count (160-400) X10*3/uL MPV (9.4-12.3) fL Immature Gran % (Auto) (0.0-0.4) % Neut % (Auto) (45-73) % Lymph % (Auto) (20-40) % [place] % (Auto) (2-11) % Eos % (Auto) (0-4) % Baso % (Auto) (0-2) % Lymph # (Auto) (1.2-4.9) X10*3/uL [place] # (Auto) (0.1-1.2) X10*3/uL Eos # (Auto) (0.0-0.4) X10*3/uL Baso # (Auto) (0.0-0.2) X10*3/uL Abs Immat Gran (auto) (0.00-0.03) X10*3/uL Absolute Neuts (auto) (2.0-8.3) x10*3/uL Absolute Nucleated RBC (0.0-0.012) X10*3/uL Nucleated RBC % (auto) (0.0-0.2) /100WBC Sodium (135-145) mmol/L Potassium (3.3-5.1) mmol/L Chloride (96-108) mmol/L Carbon Dioxide (22-29) mmol/L Anion Gap (12-20) BUN (9-16) mg/dL Creatinine (0.5-1.4) mg/dL Estim Creat Clear Calc Estimated GFR Random Glucose (60-115) mg/dL Calcium (8.4-10.2) mg/dL Total Bilirubin (0.0-1.0) mg/dL AST (5-31) U/L ALT (0-31) U/L Alkaline Phosphatase (39-117) U/L Troponin I High Sens (<3.5-17.0) ng/L Total Protein (6.5-8.0) g/dL Albumin (3.5-5.0) g/dL Ethyl Alcohol < 10 mg/dL Independent Interpretation I performed an independent interpretation of an: EKG Interpretation: Patient's EKG shows a sinus pattern heart rate is 120 OR QRS QT within normal li mits there is significant T-wave inversion over the lateral leads T-wave flattening over the inferior leads. EKG approximately the same as previous EKG from 2020 External Record Review External record reviewed: Inpatient record Discharge Plan Discharge Clinical Impression: Alcohol withdrawal Patient Disposition: Still a Patient Prescriptions: No Action (DME) ACL defiance brace See Rx Instructions .ROUTE .MEDSUPPLY Qty: 1 0RF Rx Instructions: n/a albuterol sulfate 90 mcg/actuation HFA aerosol inhaler 2 puff inhalation Q4-6H PRN (Reason: shortness of breath or wheezing) Qty: 8.5 0RF thiamine HCl (vitamin B1) 100 mg tablet 1 tab PO DAILY omeprazole 20 mg capsule,delayed release(DR/EC) 1 cap PO DAILY@0630 folic acid 1 mg tablet 1 tab PO DAILY magnesium oxide 400 mg (241.3 mg magnesium) Tablet 400 mg PO BIDPC 30 Days Qty: 60 0RF ondansetron 4 mg tablet,disintegrating 4 mg PO Q6H PRN (Reason: nausea and vomiting) Qty: 10 0RF lorazepam [Ativan] 1 mg tablet 1 - 2 mg PO Q6H PRN (Reason: alcohol withdrawal) Qty: 14 0RF chlorthalidone 25 mg tablet 1 tab PO DAILY carvedilol 3.125 mg tablet 1 tab PO BID docusate sodium 100 mg capsule 1 cap PO BID PRN (Reason: Constipation) cholecalciferol (vitamin D3) [Vitamin D3] 25 mcg (1,000 unit) capsule 1 cap PO QAM duloxetine 20 mg capsule,delayed release(DR/EC) 1 cap PO DAILY Certavite-Antioxidant 18-400 mg-mcg tablet 1 tab PO DAILY acetaminophen 500 mg tablet 1 tab PO Q6-8H PRN (Reason: fever) cyclobenzaprine 10 mg tablet 10 mg PO BEDTIME PRN (Reason: muscle spasm) Qty: 7 0RF lidocaine 5 % adhesive patch,medicated 1 patch topical DAILY PRN (Reason: pain) Qty: 15 0RF Rx Instructions: leave on most painful area for up to 12 hrs prednisone 20 mg tablet 20 mg PO DAILY 5 Days Qty: 5 0RF lisinopril 40 mg tablet 40 mg PO QAM
[2022-12-08] MEDS: LORazepam 2 MG/ML VIAL IVPUSH (07:58)
[2022-12-08] MEDS: ondansetron HCL 4 MG/2 ML VIAL IVPUSH (07:58)
[2022-12-08] MEDS: 0.9 % Sodium Chloride 1,000 ML 999 ML IV ×2 (07:58→09:05)
[2022-12-08 08:19] LABS: Troponin-I High Sensitivity 21.6 ng/L (<3.5-17.0)
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
--- NOTE | 2022-12-08 11:27 | PC.NURSE ---
alert, oriented x4. CARE team saw patient, patient wants to continue outpatient resources. fluids finished-repeat labs pending results. able to make needs known. call [facility] within reach
[2022-12-08 11:28] LABS: Anion Gap 17 (12-20); Blood Urea Nitrogen 21 mg/dL (9-16); Calcium 8.4 mg/dL (8.4-10.2); Carbon Dioxide 25 mmol/L (22-29); Chloride 101 mmol/L (96-108); Creatinine Clr Calc Pharmacy 57.5; Estimated Glomerular Filt Rate 44; Glucose Random 188 mg/dL (60-115); Potassium 2.9 mmol/L (3.3-5.1); Sodium 140 mmol/L (135-145)
[2022-12-08 11:36] VITALS: BP 122/92; PULSE 111; RESP 18; O2SAT 96
[2022-12-08 12:04] LABS: Anion Gap 16 (12-20); Blood Urea Nitrogen 21 mg/dL (9-16); Calcium 8.5 mg/dL (8.4-10.2); Carbon Dioxide 26 mmol/L (22-29); Chloride 101 mmol/L (96-108); Estimated Glomerular Filt Rate 44; Glucose Random 189 mg/dL (60-115); Potassium 2.9 mmol/L (3.3-5.1); Sodium 140 mmol/L (135-145)
== END 2022-12-08 11:41 | disposition home or self-care (01) ==
PROVIDERS: Emergency Provider Emergency Medicine Emergency Medical Services; PCP Family Medicine
DX: F10.139 Alcohol abuse with withdrawal, unspecified (principal); Y90.0 Blood alcohol level of less than 20 mg/100 ml; R07.89 Other chest pain; F41.1 Generalized anxiety disorder; F43.0 Acute stress reaction; F17.210 Nicotine dependence, cigarettes, uncomplicated; Z71.6 Tobacco abuse counseling; Z79.899 Other long term (current) drug therapy; Z71.51 Drug abuse counseling and surveillance of drug abuser
CPT/HCPCS: 36415; 80048; 80053; 82077; 84484; 85025; 93005; 96361; 96374; 96375; 99285; J2060; J2405

== ENCOUNTER 2022-12-30 20:57 | Inpatient (IN) | payer MEDICAID, SELFPAY ==
--- NOTE | ~2022-12-30 | CT_ITS ---
EXAMINATION: CT ABDOMEN AND PELVIS WITHOUT CONTRAST CLINICAL INFORMATION: Lower abdominal pain. Diarrhea. COMPARISON: Renal ultrasound July 19, [address] abdomen pelvis June 10, 2014 TECHNIQUE: Multidetector volumetric imaging was performed from the superior aspect of the liver through the pubic symphysis. Sagittal and coronal reformatted images were obtained on the technologist's workstation. This CT examination was performed using dose optimization techniques as appropriate, variously including the following: *Automated exposure control *Adjustment of mA and/or kV according to patient size (this includes techniques or standardized protocols for targeted exams where dose is matched to indication/reason for exam; i.e. extremities or head) *Use of iterative reconstruction technique DLP: 466 mGy-cm FINDINGS: Visualized lung bases are well aerated. The liver is mildly enlarged. There is diffusely decreased attenuation of the liver. The gallbladder is relatively decompressed. The pancreas, spleen and right adrenal gland are unremarkable. There is some chronic nodularity of the left adrenal gland. Symmetrically sized kidneys. No renal calculi or hydronephrosis of either kidney. Normal caliber loops of small and large bowel. Mild to moderate colonic diverticulosis without CT evidence to suggest active diverticulitis. Normal appendix. Small fat-containing umbilical hernia. Normal caliber abdominal aorta demonstrating mild atherosclerotic disease. No retroperitoneal lymphadenopathy. The bladder is normal in appearance. Uterus is surgically absent. There is no gross free pelvic fluid. No inguinal lymphadenopathy. No acute osseous abnormality. CT/CT abdomen pelvis wo IV con IMPRESSION: 1. Colonic diverticulosis without CT evidence to suggest active diverticulitis. 2. Mild hepatomegaly with diffusely decreased attenuation of the liver. This is a nonspecific finding but most suggestive of hepatic steatosis. Correlation with liver enzymes recommended. Fleischner guidelines were followed.
[2022-12-30 21:29] VITALS: BP 139/95; PULSE 124; RESP 18; TEMP 36.7; O2SAT 95; BMI 27.3
--- NOTE | 2022-12-30 21:34 | ECG_ITS ---
Test Reason : etoh Blood Pressure : / mmHG Vent. Rate : 118 BPM Atrial Rate : 118 BPM P-R Int : 154 ms QRS Dur : 080 ms QT Int : 334 ms P-R-T Axes : 075 019 100 degrees QTc Int : 468 ms Sinus tachycardia Nonspecific T wave abnormality Abnormal ECG When compared with ECG of 07-DEC-2022 23:27, No significant change was found Referred By: Generic ED Physician Electronically Signed By:KENNEDI BOURGEOIS MD
[2022-12-30 21:45] LABS: Hematocrit 40.7 % (37.0-47.0); Mean Corpuscular HGB Conc 34.4 g/dl (31.0-35.0); Mean Corpuscular Hemoglobin 30.5 pg (27.0-33.0); Mean Corpuscular Volume 88.7 fL (80.0-98.0); Mean Platelet Volume 9.8 fL (9.4-12.3); Platelet Count 325 X10*3/uL (160-400); Red Blood Count 4.59 X10*6/uL (4.20-5.50); Red Cell Distribution Width 14.7 % (11.0-16.0); White Blood Count 10.8 X10*3/uL (4.8-10.8)
--- NOTE | 2022-12-30 22:02 | ED.ALCOHOL ---
HPI - Alcohol General Chief Complaint: ETOH/Substance Use Stated Complaint: Withdrawals Time Seen by Provider: 12/30/22 21:59 Source: patient Mode of arrival: ambulatory Limitations: no limitations History of Present Illness HPI narrative: Patient is Alcoholic with history of depression and anxiety been drinking heavy for last 9 days hard liquor last drink was earlier today now feels withdrawal like you to detox asking for help. Denies any SI or HI no hallucination delusion feels anxious also patient has been throwing up all day today had loose bowels diffuse abdominal cramp Related Data Home Medications Medication Instructions Recorded Confirmed folic acid 1 mg tablet 1 tab PO DAILY 09/30/21 06/04/22 omeprazole 20 mg capsule,delayed 1 cap PO DAILY@0630 09/30/21 06/04/22 release thiamine HCl (vitamin B1) 100 mg 1 tab PO DAILY 09/30/21 06/04/22 tablet lisinopril 40 mg tablet 40 mg PO QAM 10/15/21 06/04/22 acetaminophen 500 mg tablet 1 tab PO Q6-8H PRN fever 06/04/22 06/04/22 carvedilol 3.125 mg tablet 1 tab PO BID 06/04/22 06/04/22 chlorthalidone 25 mg tablet 1 tab PO DAILY 06/04/22 06/04/22 cholecalciferol (vitamin D3) 25 1 cap PO QAM 06/04/22 06/04/22 mcg (1,000 unit) capsule (Vitamin D3) docusate sodium 100 mg capsule 1 cap PO BID PRN Constipation 06/04/22 06/04/22 duloxetine 20 mg capsule,delayed 1 cap PO DAILY 06/04/22 06/04/22 release multivitamin-ferrous 1 tab PO DAILY 06/04/22 06/04/22 fumarate-folic acid 18 mg-400 mcg tablet (Certavite-Antioxidant) Previous Rx's Medication Instructions Recorded ACL defiance brace #1 ea 07/29/21 albuterol sulfate 90 mcg/actuation 2 puff inhalation Q4-6H PRN 09/12/21 aerosol inhaler shortness of breath or wheezing #8.5 grams magnesium oxide 400 mg (241.3 mg 400 mg PO BIDPC 30 days #60 tabs 10/02/21 magnesium) tablet cyclobenzaprine 10 mg tablet 10 mg PO BEDTIME PRN muscle spasm 08/11/22 #7 tabs lidocaine 5 % topical patch 1 patch topical DAILY PRN pain #15 08/11/22 ea prednisone 20 mg tablet 20 mg PO DAILY 5 days #5 tabs 08/11/22 lorazepam 1 mg tablet (Ativan) 1 - 2 mg PO Q6H PRN alcohol 10/03/22 withdrawal #14 tabs ondansetron 4 mg disintegrating 4 mg PO Q6H PRN nausea and 10/03/22 tablet vomiting #10 tabs Allergies Allergy/AdvReac Type Severity Reaction Status Date / Time amoxicillin [AMOXICILLIN] Allergy Intermediate rash, Verified 12/30/22 21:33 rash/itching Sulfa (Sulfonamide Allergy Intermediate rash/itchin Verified 12/30/22 21:33 Antibiotics) g sulfamethoxazole Allergy Intermediate RASH Verified 12/30/22 21:33 [From BACTRIM] trimethoprim [From BACTRIM] Allergy Intermediate RASH Verified 12/30/22 21:33 hydrocodone [Hydrocodone] Allergy Mild ITCH Verified 12/30/22 21:33 ibuprofen [From Motrin] Allergy Mild UPSET Verified 12/30/22 21:33 STOMACH latex [Latex] Allergy Mild ITCH Verified 12/30/22 21:33 Review of Systems Review of Systems: Yes all other systems are reviewed and are negative PMFSH Past Medical History Medical History Anxiety Breast cancer H/O ETOH abuse History of COVID-19 History of low potassium Hypertension Panic attack Uncontrolled hypertension Surgical History H/O: hysterectomy History of breast lump/mass excision History of carpal tunnel release Hx of tubal ligation Family History Family History Mother Heart disease Alzheimers disease Social History Social History Household Members: None Housing: Apartment Do you presently have visiting nurse or other home services: No Alcohol intake: current Alcohol intake frequency: 3 or more drinks per day Alcohol type: hard liquor Patient Tobacco Use Status: Current someday Tobacco user Tobacco use type: Cigarette Cigarettes Per Day: 10 Advance Directives: Yes Advance Directives on File: Yes Advance Directives Date on File: 02/11/22 service: No Current occupational status: disabled Physical Exam ED Vital Signs: Vital Signs - 24 hr 12/30/22 21:29 12/30/22 23:42 12/31/22 05:15 Temperature 98.1 F 97.8 F 98.3 F Pulse Rate 124 H 118 H 75 Respiratory Rate 18 17 16 Blood Pressure 139/95 H 110/79 116/75 Pulse Oximetry 95 96 96 Oxygen Delivery Method Room Air Room Air Room Air BMI result Body Mass Index 27.3 Appearance: Alert. Oriented X3. No acute distress. ETOH+ anxious Eyes: PERRLA, No Nystagmus ENT: Pharynx normal. Oral Mucosa moist Neck: Normal inspection. Neck supple. CVS: Normal heart rate and rhythm. Pulses normal. Respiratory: No respiratory distress. Equal air entry bilateral, no wheezing/rales/rhonchi Abdomen: Soft, diffuse abdominal tenderness no rebound tenderness or guarding Bowel sounds are present, no mass palpable, no CVA tenderness Skin: Skin warm and dry. Normal skin color. Normal skin turgor. Extremities: No lower extremity edema. No calf tenderness psych: Anxious denied SI no hallucination or delusion Neuro: Oriented X 3. No motor deficit. No sensory deficit.No cerebellar signs , cranial nerves II-XII intact Medical Decision Making Medical Decision Making MDM Narrative: Patient with alcohol abuse disorder with depression anxiety requesting to be evaluation by care team will be seen in a.m. for detox/dual diagnosis Lab Data [facility] Lab Attestation statement: I reviewed the patient's lab results. 12/30/22 21:39 12/30/22 21:39 Labs: Lab Results 12/30/22 12/30/22 12/30/22 Range/Units 21:39 21:39 22:50 WBC 10.8 (4.8-10.8) X10*3/uL RBC 4.59 (4.20-5.50) X10*6/uL Hgb 14.0 (12.0-16.0) g/dl Hct 40.7 (37.0-47.0) % MCV 88.7 (80.0-98.0) fL MCH 30.5 (27.0-33.0) pg MCHC 34.4 (31.0-35.0) g/dl RDW 14.7 (11.0-16.0) % Plt Count 325 D (160-400) X10*3/uL MPV 9.8 (9.4-12.3) fL Absolute Nucleated RBC 0.000 (0.0-0.012) X10*3/uL Nucleated RBC % (auto) 0.0 (0.0-0.2) /100WBC Sodium 142 (135-145) mmol/L Potassium 3.5 D (3.3-5.1) mmol/L Chloride 97 (96-108) mmol/L Carbon Dioxide 23 (22-29) mmol/L Anion Gap 26 H (12-20) BUN 14 (9-16) mg/dL Creatinine 1.10 (0.5-1.4) mg/dL Estim Creat Clear Calc 67.1 Estimated GFR 53 Random Glucose 97 (60-115) mg/dL Calcium 9.0 (8.4-10.2) mg/dL Magnesium 1.7 (1.6-2.6) mg/dL Total Bilirubin 0.8 (0.0-1.0) mg/dL AST 62 H (5-31) U/L ALT 62 H (0-31) U/L Alkaline Phosphatase 127 H (39-117) U/L Total Protein 8.3 H (6.5-8.0) g/dL Albumin 4.6 (3.5-5.0) g/dL Lipase 41 (8-78) U/L Ethyl Alcohol 359 H* mg/dL COVID-19 ([facility]) Negative (Negative) COVID-19 Clin Com See Note Medications Administered Generic Name Dose Route Start Last Admin Trade Name Frekiran PRN Reason Stop Dose Admin Lorazepam 1 mg 12/31/22 00:09 12/31/22 05:55 Lorazepam 1 Mg Tablet PO 01/04/23 00:08 1 mg Q4H PRN Administration Breakthrough alcohol withdrawa Discontinued Medications Generic Name Dose Route Start Last Admin Trade Name Freq PRN Reason Stop Dose Admin Famotidine 20 mg 12/31/22 00:41 12/31/22 00:47 Famotidine/Pf 20 Mg/2 Ml Vial IVPUSH 12/31/22 00:42 20 mg ONCE ONE Administration Sodium Chloride 1,000 mls @ 999 mls/hr 12/30/22 22:20 12/31/22 04:33 Ns IV 12/30/22 23:20 Infused .Q1H1M ONE Infusion Lorazepam 1 mg 12/31/22 00:41 12/31/22 00:47 Lorazepam 2 Mg/Ml Vial IVPUSH 12/31/22 00:42 1 mg ONCE ONE Administration Discharge Plan Discharge Clinical Impression: Alcoholic intoxication, Anxiety and depression Patient Disposition: Still a Patient Prescriptions: No Action (DME) ACL defiance brace See Rx Instructions .ROUTE .MEDSUPPLY Qty: 1 0RF Rx Instructions: n/a albuterol sulfate 90 mcg/actuation HFA aerosol inhaler 2 puff inhalation Q4-6H PRN (Reason: shortness of breath or wheezing) Qty: 8.5 0RF thiamine HCl (vitamin B1) 100 mg tablet 1 tab PO DAILY omeprazole 20 mg capsule,delayed release(DR/EC) 1 cap PO DAILY@0630 folic acid 1 mg tablet 1 tab PO DAILY magnesium oxide 400 mg (241.3 mg magnesium) Tablet 400 mg PO BIDPC 30 Days Qty: 60 0RF ondansetron 4 mg tablet,disintegrating 4 mg PO Q6H PRN (Reason: nausea and vomiting) Qty: 10 0RF lorazepam [Ativan] 1 mg tablet 1 - 2 mg PO Q6H PRN (Reason: alcohol withdrawal) Qty: 14 0RF chlorthalidone 25 mg tablet 1 tab PO DAILY carvedilol 3.125 mg tablet 1 tab PO BID docusate sodium 100 mg capsule 1 cap PO BID PRN (Reason: Constipation) cholecalciferol (vitamin D3) [Vitamin D3] 25 mcg (1,000 unit) capsule 1 cap PO QAM duloxetine 20 mg capsule,delayed release(DR/EC) 1 cap PO DAILY Certavite-Antioxidant 18-400 mg-mcg tablet 1 tab PO DAILY acetaminophen 500 mg tablet 1 tab PO Q6-8H PRN (Reason: fever) cyclobenzaprine 10 mg tablet 10 mg PO BEDTIME PRN (Reason: muscle spasm) Qty: 7 0RF lidocaine 5 % adhesive patch,medicated 1 patch topical DAILY PRN (Reason: pain) Qty: 15 0RF Rx Instructions: leave on most painful area for up to 12 hrs prednisone 20 mg tablet 20 mg PO DAILY 5 Days Qty: 5 0RF lisinopril 40 mg tablet 40 mg PO QAM
[2022-12-30 22:17] LABS: Alanine Aminotransferase 62 U/L (0-31); Albumin Level 4.6 g/dL (3.5-5.0); Alkaline Phosphatase 127 U/L (39-117); Anion Gap 26 (12-20); Aspartate Amino Transferase 62 U/L (5-31); Bilirubin Total 0.8 mg/dL (0.0-1.0); Blood Urea Nitrogen 14 mg/dL (9-16); Carbon Dioxide 23 mmol/L (22-29); Chloride 97 mmol/L (96-108); Creatinine Clr Calc Pharmacy 67.1; Estimated Glomerular Filt Rate 53; Glucose Random 97 mg/dL (60-115); Potassium 3.5 mmol/L (3.3-5.1); Sodium 142 mmol/L (135-145); Total Protein 8.3 g/dL (6.5-8.0)
[2022-12-30 22:42] LABS: Ethanol 359 mg/dL; Lipase 41 U/L (8-78); Magnesium 1.7 mg/dL (1.6-2.6)
[2022-12-30 23:08] LABS: COVID-19 Test Negative (Negative); IDNOW Serial# 6674DD1D
[2022-12-30] MEDS: 0.9 % Sodium Chloride 1,000 ML 999 ML IV (23:39)
[2022-12-30 23:42] VITALS: BP 110/79; PULSE 118; RESP 17; TEMP 36.6; O2SAT 96
[2022-12-31] VITALS (9 sets, daily range): BP systolic 116–157; BP diastolic 66–102; PULSE 75–121; RESP 13–21; TEMP 36.3–37.4; O2SAT 95–97
[2022-12-31] MEDS: Famotidine/PF 20 MG/2 ML VIAL IVPUSH (00:47)
[2022-12-31] MEDS: LORazepam 2 MG/ML VIAL 1 MG IVPUSH (00:47)
[2022-12-31] MEDS: LORazepam 1 MG TABLET PO (05:55)
--- NOTE | 2022-12-31 09:14 | MHC.RECOVRN ---
This race and sports book writer met with patient, patient laying in bed, eyes clothed, awake. Patient reports long history of ETOH use. Patient reports in the past stayed at [facility]. Patient reports 9 day binge of drinking liter daily hard EOTH [employer] DEVEL[employer]. Patient reports no hx of ETOH induced seizures, patient reports hx of AVH. Patient reports pounding headache, sensitivity to light, increased nausea, feeling of ants crawling on face, 9/10 abdominal pain currently. Patient visibly grimacing, eyes tightly closed due to sensitivity. Patient states not interested in detox bedsearch at this time. Patient states has appt at [facility] to meet with Dr. Mark Martin to start medications for ETOH use. Provider aware.
[2022-12-31] MEDS: Ondansetron ODT 4 MG TAB.RAPDIS TRANSLINGU (10:28)
[2022-12-31] MEDS: LORazepam 2 MG/ML VIAL IVPUSH (10:28)
[2022-12-31] MEDS: PHENobarbitaL sodium 130 MG/ML VIAL IM (12:21)
[2022-12-31] MEDS: 0.9 % Sodium Chloride 1,000 ML 999 ML IV (12:22)
--- NOTE | 2022-12-31 12:30 | PM.IMHP ---
History of Present Illness Date of Service: 12/31/22 Chief Complaint: Withdrawal symptoms 47-year-old woman with history of heavy alcohol abuse presenting with tremors, nausea, generalized body pain, diarrhea and abdominal cramps. She reports that she had been drinking heavy for the last 9 days she drinks hard liquor at least a pint. She denied chest pain, shortness breath, vomiting, sick contacts, recent travel. She reports that she generally drinks alone and drinks heavy. She had been sober for a time of 5 years at 1 point in her life. In the ER, her labs are actually within acceptable limits mildly elevated liver enzymes which is not a surprise with her heavy alcohol use. U tox 359. She was noted to be tachycardic and mildly tachypneic. The ER she was given 2 L of IV fluids, Pepcid, Ativan, Zofran and was started on phenobarbital protocol. She will be admitted for further management treatment of alcohol intoxication or withdrawal. Review of Systems Review of Systems: Denies any recent fever chills or decrease in appetite respiratory denies any shortness of breath coverage production cardiovascular is adjustment of any PND or edema gastrointestinal denies any dysphagia abdominal pain nausea vomiting or diarrhea genitourinary denies any dysuria frequency or hematuria musculoskeletal denies any joint pain or swelling neuropsych denies any weakness or seizures all other systems reviewed are negative [facility] Medical History Anxiety Breast cancer H/O ETOH abuse History of COVID-19 History of low potassium Hypertension Panic attack Uncontrolled hypertension Family History Mother Heart disease Alzheimers disease Surgical History H/O: hysterectomy History of breast lump/mass excision History of carpal tunnel release Hx of tubal ligation Social History Household Members: None Housing: Apartment Do you presently have visiting nurse or other home services: No Alcohol intake: current Alcohol intake frequency: 3 or more drinks per day Alcohol type: hard liquor Patient Tobacco Use Status: Current someday Tobacco user Tobacco use type: Cigarette Cigarettes Per Day: 10 Smoked in Last 30 Days: Yes Use of substances other than those prescribed or required for medical reasons: No Advance Directives: Yes Advance Directives on File: Yes Advance Directives Date on File: 02/11/22 service: No Current occupational status: disabled Meds Allergies Allergy/AdvReac Type Severity Reaction Status Date / Time amoxicillin [AMOXICILLIN] Allergy Intermediate rash, Verified 12/30/22 21:33 rash/itching Sulfa (Sulfonamide Allergy Intermediate rash/itchin Verified 12/30/22 21:33 Antibiotics) g sulfamethoxazole Allergy Intermediate RASH Verified 12/30/22 21:33 [From BACTRIM] trimethoprim [From BACTRIM] Allergy Intermediate RASH Verified 12/30/22 21:33 hydrocodone [Hydrocodone] Allergy Mild ITCH Verified 12/30/22 21:33 ibuprofen [From Motrin] Allergy Mild UPSET Verified 12/30/22 21:33 STOMACH latex [Latex] Allergy Mild ITCH Verified 12/30/22 21:33 Active Medications: Current Medications Lorazepam (Lorazepam 1 Mg Tablet) 1 mg PO Q4H PRN PRN Reason: Breakthrough alcohol withdrawa Stop: 01/04/23 00:08 Last Admin: 12/31/22 05:55 Dose: 1 mg Home Medications Medication Instructions Recorded Confirmed Last Taken Type folic acid 1 mg tablet 1 tab PO DAILY 09/30/21 12/31/22 12/29/22 History omeprazole 20 mg capsule,delayed 1 cap PO DAILY@0630 09/30/21 12/31/22 12/29/22 History release thiamine HCl (vitamin B1) 100 mg 1 tab PO DAILY 09/30/21 12/31/22 12/29/22 History tablet lisinopril 40 mg tablet 40 mg PO QAM 10/15/21 12/31/22 12/29/22 History acetaminophen 500 mg tablet 1 tab PO Q6-8H PRN fever 06/04/22 12/31/22 Unknown History carvedilol 3.125 mg tablet 1 tab PO BID 06/04/22 12/31/22 12/29/22 History chlorthalidone 25 mg tablet 1 tab PO DAILY 06/04/22 12/31/22 12/29/22 History cholecalciferol (vitamin D3) 25 1 cap PO QAM 06/04/22 12/31/22 12/29/22 History mcg (1,000 unit) capsule (Vitamin D3) docusate sodium 100 mg capsule 1 cap PO BID PRN Constipation 06/04/22 12/31/22 12/29/22 History multivitamin-ferrous 1 tab PO DAILY 06/04/22 12/31/22 12/29/22 History fumarate-folic acid 18 mg-400 mcg tablet (Certavite-Antioxidant) naltrexone 50 mg tablet See Rx Instructions .Route .COMPLEX 12/31/22 Unknown History Physical Exam Vital Signs and Narrative: Vital Signs: Last Vital Signs Temp 98.3 F 12/31/22 05:15 Pulse 118 H 12/31/22 10:36 Resp 21 H 12/31/22 10:36 BP 145/90 H 12/31/22 10:36 Pulse Ox 95 12/31/22 10:36 O2 Del Method 12/31/22 10:36 BMI result Body Mass Index 27.3 Appearing in no acute distress head is normocephalic atraumatic eyes pupils are PERRLA sclera is anicteric mouth throat mucous membranes are intact and moist neck is supple no lymphadenopathy, no JVD noted lung sounds are clear to auscultation heart regular rate rhythm, clear S1, S2 positive bowel sounds, abdomen is soft, nontender neuro patient is alert x3, no focal deficits Results Labs 12/30/22 21:39 12/30/22 21:39 Labs: Laboratory Results - last 24 hr 12/30/22 12/30/22 12/30/22 21:39 21:39 22:50 MCV 88.7 MCH 30.5 MCHC 34.4 RDW 14.7 Plt Count 325 D MPV 9.8 Absolute Nucleated RBC 0.000 Nucleated RBC % (auto) 0.0 Anion Gap 26 H Estim Creat Clear Calc 67.1 Estimated GFR 53 Random Glucose 97 Calcium 9.0 Magnesium 1.7 Total Bilirubin 0.8 AST 62 H ALT 62 H Alkaline Phosphatase 127 H Total Protein 8.3 H Albumin 4.6 Lipase 41 Ethyl Alcohol 359 H* COVID-19 ([facility]) Negative COVID-19 Clin Com See Note Assessment and Plan (1) Alcoholic intoxication: Status: Acute Plan 47-year-old woman admitted with alcohol intoxication and withdrawal Alcohol intoxication or withdrawal Continue phenobarbital protocol Folic acid, multivitamin and thiamine IV fluids Encourage food intake sign addiction consultation Mild transaminitis Secondary to alcohol abuse Asthma No exacerbation Albuterol as needed sign History of tachycardia Continue beta-lisa Hypertension Continue chlorthalidone, lisinopril GERD Continue PPI DVT prophylaxis with heparin Attending Dr. Gage Full code Patient requires 2 inpatient midnights for treatment of alcohol withdrawal and intoxication requiring phenobarbital protocol to avoid severe withdrawals Time Spent With Patient Time: Total time managing care of this patient today ____ minutes. Quality Stroke Does the patient have a stroke diagnosis?: No VTE Prior VTE?: No VTE Risk Level:: Medical - moderate - high VTE Device Contraindication: Treatment Not Indicated VTE Drug Contraindication: N/A - Med Ordered
--- NOTE | 2022-12-31 13:36 | PHA.MEDREC ---
Pharmacy Consult ? Medication Reconciliation Pharmacy has completed the medication reconciliation. Patient confirmed all medications. Reports she has naltrexone at home but has not start taking it yet. I left the naltrexone unconfirmed since she has not started it yet. Beatrice Kwong, CharleneD
[2022-12-31] MEDS: PHENobarbitaL sodium 130 MG/ML IM ONCE 117 MG IM (13:42)
[2022-12-31] MEDS: lisinopriL 40 MG TABLET PO (14:38)
[2022-12-31] MEDS: Lactated Ringers 1,000 ML 100 ML IVCONT (14:43)
[2022-12-31] MEDS: PHENobarbitaL sodium 130 MG/ML VIAL IM Q3Hx2 74.1 MG IM (19:01)
[2022-12-31] MEDS: Magnesium Oxide 400 MG TABLET PO (19:01)
[2022-12-31] MEDS: Heparin Sodium,Porcine 5,000 UNIT/ML VIAL 5000 UNIT SUBCUT (19:02)
--- NOTE | 2022-12-31 19:10 | MHC.CM.PN ---
CM met with admitted patient with bed assignment pending. A&Ox4. Pt lives alone. No DME. 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 His son is her INDUSTRIAL LOCOMOTIVE OPERATOR. Has had Pfizer x1 only. Long standing ETOH misuse. Met with addiction services. Refuses detox/treatment. Pt tells CM she will meet with Dr. Martin at [facility] and maybe try medications. Pt PCP is Dr. Latham at [facility]. D/C plan: Home. Pt will arrange transportation home. CM will follow for any discharge needs.
[2022-12-31] MEDS: carvediloL 3.125 MG TABLET PO (22:07)
--- NOTE | 2023-01-01 02:17 | PC.NURSE ---
Pt. due for next bag of LR. Current bag still running, however is almost finished. Will administer next bag as soon as current bag is complete.
--- NOTE | 2023-01-01 02:18 | PC.NURSE ---
Assumed care of pt. at 2300. Prior to that time pt. was in room on phone with family member at bedside. Pt. was eating [employer] fried chicken for dinner. Pt. is currently sleeping, respirations even and unlabored. No distress noted. Will continue to monitor.
[2023-01-01] MEDS: Lactated Ringers 1,000 ML 100 ML IVCONT ×2 (04:27→18:03)
[2023-01-01] MEDS: PHENobarbitaL sodium 130 MG/ML VIAL IM (04:58)
--- NOTE | 2023-01-01 05:29 | PC.NURSE ---
Pt. assigned a bed on [facility], room 353. Report called to JULIO CESAR Love.
[2023-01-01 06:03] VITALS: BP 154/95; PULSE 99; RESP 16; TEMP 36.6; O2SAT 98
[2023-01-01] MEDS: Omeprazole 20 MG CAPSULE.DR PO (06:07)
[2023-01-01] MEDS: Heparin Sodium,Porcine 5,000 UNIT/ML VIAL 5000 UNIT SUBCUT ×2 (06:07→16:53)
[2023-01-01 06:35] LABS: MANUAL DIFF FLAG NO
[2023-01-01 06:38] LABS: Basophils Absolute Auto 0.1 X10*3/uL (0.0-0.2); Basophils Percent Auto 1.3 % (0-2); Eosinophils Absolute Auto 0.1 X10*3/uL (0.0-0.4); Eosinophils Percent Auto 1.8 % (0-4); Hemoglobin 10.9 g/dl (12.0-16.0); Imm Gran Abs Auto 0.02 X10*3/uL (0.00-0.03); Imm Gran Pct Auto 0.4 % (0.0-0.4); Lymphocytes Absolute Auto 1.7 X10*3/uL (1.2-4.9); Lymphocytes Percent Auto 30.5 % (20-40); Mean Corpuscular HGB Conc 34.1 g/dl (31.0-35.0); Mean Corpuscular Hemoglobin 30.9 pg (27.0-33.0); Mean Corpuscular Volume 90.7 fL (80.0-98.0); Mean Platelet Volume 10.6 fL (9.4-12.3); Monocytes Absolute Auto 0.4 X10*3/uL (0.1-1.2); Monocytes Percent Auto 7.9 % (2-11); Neutrophils Absolute Auto 3.2 x10*3/uL (2.0-8.3); Neutrophils Percent Auto 58.1 % (45-73); Platelet Count 197 X10*3/uL (160-400); Red Blood Count 3.53 X10*6/uL (4.20-5.50); Red Cell Distribution Width 14.4 % (11.0-16.0); White Blood Count 5.5 X10*3/uL (4.8-10.8)
[2023-01-01 07:02] LABS: Anion Gap 15 (12-20); Blood Urea Nitrogen 13 mg/dL (9-16); Carbon Dioxide 25 mmol/L (22-29); Chloride 101 mmol/L (96-108); Creatinine Clr Calc Pharmacy 88.9; Estimated Glomerular Filt Rate > 60; Glucose Random 107 mg/dL (60-115); Potassium 3.3 mmol/L (3.3-5.1); Sodium 138 mmol/L (135-145)
[2023-01-01 07:10] LABS: Calcium 7.8 mg/dL (8.4-10.2)
[2023-01-01] MEDS: PHENobarbitaL 15 MG TABLET 45 MG PO ×2 (07:45→20:00)
[2023-01-01] MEDS: lisinopriL 40 MG TABLET PO (07:47)
[2023-01-01] MEDS: hydroCHLOROthiazide 25 MG TABLET PO (07:47)
[2023-01-01] MEDS: carvediloL 3.125 MG TABLET PO ×2 (07:47→20:00)
[2023-01-01] MEDS: Folic Acid 1 MG TABLET PO (07:50)
[2023-01-01 08:00] VITALS: BP 122/77; PULSE 98; RESP 18; TEMP 36.4; O2SAT 98
[2023-01-01 08:11] LABS: Alanine Aminotransferase 35 U/L (0-31); Albumin Level 3.4 g/dL (3.5-5.0); Alkaline Phosphatase 91 U/L (39-117); Aspartate Amino Transferase 35 U/L (5-31); Bilirubin Direct 0.2 mg/dL (0.0-0.5); Bilirubin Total 0.8 mg/dL (0.0-1.0); Magnesium 1.2 mg/dL (1.6-2.6); Total Protein 5.9 g/dL (6.5-8.0)
[2023-01-01] MEDS: Cholecalciferol (Vitamin D3) 25 MCG TABLET PO (08:45)
[2023-01-01] MEDS: Multivitamin TABLET 1 TAB PO (08:45)
[2023-01-01] MEDS: Magnesium Oxide 400 MG TABLET PO ×2 (08:45→16:53)
[2023-01-01] MEDS: Magnesium Sulfate/H2O 2 GM/50 ML PIGGYBACK IV (10:58)
[2023-01-01] MEDS: Thiamine HCL 100 MG TABLET PO (11:02)
--- NOTE | 2023-01-01 13:47 | HO.PM.IMPN ---
Subjective Subjective Date of Service: 01/01/23 Interval History: seen and examined this morning follow up for alcohol withdrawal have some abdominal pain, nausea, diarrhea; no vomiting, headache resolved Review of Systems Review of Systems: Yes all other systems are reviewed and are negative Constitutional Constitutional: Denies chills and Denies fever(s) Cardiovascular Cardiovascular: Denies dyspnea Respiratory Respiratory: Denies cough and Denies dyspnea Gastrointestinal Gastrointestinal: Reports nausea Physical Exam Vital Signs: Vital Signs: Last Vital Signs Temp 97.6 F 01/01/23 08:00 Pulse 98 01/01/23 08:00 Resp 18 01/01/23 08:00 BP 122/77 01/01/23 08:00 Pulse Ox 98 01/01/23 08:00 O2 Del Method 01/01/23 08:00 BMI result Body Mass Index 27.3 Const: General: alert and awake Nutritional Appearance: average body habitus Orientation/consciousness: patient oriented x3 Resp: Effort & Inspection: normal respiratory effort and able to speak in complete sentences Cardio: Rate: regular rate Heart sounds: S1 normal heart sound present and S2 normal heart sound present GI: Other: reporting lower abdominal discomfort, does not appear tender on exam Inspection: No distended Palpation (GI): Soft to palpation Neuro: General: patient oriented x3 and CN's II-XI intact bilaterally Extrem: General: Yes no pedal edema Objective Data Active Medications Acetaminophen (Acetaminophen 325 Mg Tablet) 650 mg PO Q6H PRN PRN Reason: Pain, Mild (Pain Scale 1-3) Albuterol Sulfate (Albuterol Sulfate 90 Mcg 8 Gm Inhaler) 2 puff INHALE Q4H PRN PRN Reason: shortness of breath or wheezing Carvedilol (Carvedilol 3.125 Mg Tablet) 3.125 mg PO BID [facility]; Protocol Last Admin: 01/01/23 07:47 Dose: 3.125 mg Documented By: NANCY Cyclobenzaprine HCl (Cyclobenzaprine Hcl 10 Mg Tablet) 10 mg PO BEDTIME PRN PRN Reason: muscle spasm Docusate Sodium (Docusate Sodium 100 Mg Capsule) 100 mg PO BID PRN PRN Reason: Constipation Folic Acid (Folic Acid 1 Mg Tablet) 1 mg PO DAILY [facility] Last Admin: 01/01/23 07:50 Dose: 1 mg Documented By: NANCY Heparin Sodium (Porcine) (Heparin Sodium,Porcine 5,000 Unit/Ml Vial) 5,000 unit SUBCUT Q12H [facility] Last Admin: 01/01/23 06:07 Dose: 5,000 unit Documented By: SARAH Hydrochlorothiazide (Hydrochlorothiazide 25 Mg Tablet) 25 mg PO DAILY [facility] Last Admin: 01/01/23 07:47 Dose: 25 mg Documented By: NANCY Lactated Ringer's (Lr) 1,000 mls @ 100 mls/hr IVCONT .Q10H [facility] Last Infusion: 01/01/23 11:04 Dose: 0 mls/hr Documented By: NANCY Lisinopril (Lisinopril 40 Mg Tablet) 40 mg PO DAILY [facility]; Protocol Last Admin: 01/01/23 07:47 Dose: 40 mg Documented By: NANCY Lorazepam (Lorazepam 1 Mg Tablet) 1 mg PO Q4H PRN PRN Reason: Breakthrough alcohol withdrawa Stop: 01/04/23 00:08 Last Admin: 12/31/22 05:55 Dose: 1 mg Documented By: CHATO Magnesium Oxide (Magnesium [facility]ide 400 Mg Tablet) [facility] Last Admin: 01/01/23 08:45 Dose: 400 mg Documented By: NANCY Multivitamins/Vitamin C (Multivitamin Tablet) 1 tab PO DAILY [facility] Last Admin: 01/01/23 08:45 Dose: 1 tab Documented By: NANCY Omeprazole (Omeprazole 20 Mg Capsule.Dr) 20 mg PO DAILY@0630 [facility] Last Admin: 01/01/23 06:07 Dose: 20 mg Documented By: SARAH Ondansetron HCl (Ondansetron Hcl 4 Mg/2 Ml Vial) 4 mg IVPUSH Q8H PRN PRN Reason: Nausea and Vomiting Pharmacy Consult (Consult Rx Etoh Phenob Im/Po) 1 each MISCELLANE ONCE PRN; Protocol PRN Reason: Consult order Pharmacy Consult (Consult Rx Perform Med Rec) 1 each MISCELLANE ONCE PRN PRN Reason: Consult order Phenobarbital (Phenobarbital 15 Mg Tablet) 45 mg PO BID [facility]; Protocol Stop: 01/02/23 21:01 Last Admin: 01/01/23 07:45 Dose: 45 mg Documented By: NANCY Phenobarbital (Phenobarbital 15 Mg Tablet) 15 mg PO BID [facility]; Protocol Stop: 01/04/23 21:01 Phenobarbital (Phenobarbital 15 Mg Tablet) 15 mg PO DAILY [facility]; Protocol Stop: 01/06/23 09:01 Sodium Chloride (0.9 % Sodium Chloride Flush 3 Ml Syringe) 3 ml IVFLUSH QSHIFT [facility] Last Admin: 01/01/23 08:45 Dose: Not Given Documented By: NANCY Non-Admin Reason: IV Running Thiamine HCl (Thiamine Hcl 100 Mg Tablet) 100 mg PO DAILY [facility] Last Admin: 01/01/23 11:02 Dose: 100 mg Documented By: NANCY Vitamin D (Cholecalciferol (Vitamin D3) 25 Mcg Tablet) 25 mcg PO DAILY [facility] Last Admin: 01/01/23 08:45 Dose: 25 mcg Documented By: NANCY Labs 01/01/23 06:03 01/01/23 06:03 Labs: Laboratory Results - last 24 hr 01/01/23 01/01/23 06:03 06:03 MCV 90.7 MCH 30.9 MCHC 34.1 RDW 14.4 Plt Count 197 D MPV 10.6 Immature Gran % (Auto) 0.4 Neut % (Auto) 58.1 Lymph % (Auto) 30.5 [place] % (Auto) 7.9 Eos % (Auto) 1.8 Baso % (Auto) 1.3 Lymph # (Auto) 1.7 [place] # (Auto) 0.4 Eos # (Auto) 0.1 Baso # (Auto) 0.1 Abs Immat Gran (auto) 0.02 Absolute Neuts (auto) 3.2 Absolute Nucleated RBC 0.000 Nucleated RBC % (auto) 0.0 Anion Gap 15 Estim Creat Clear Calc 88.9 Estimated GFR > 60 Random Glucose 107 Calcium 7.8 L D Magnesium 1.2 L* Total Bilirubin 0.8 Direct Bilirubin 0.2 AST 35 H ALT 35 H Alkaline Phosphatase 91 Total Protein 5.9 L Albumin 3.4 L Assessment and Plan (1) Alcohol withdrawal: Status: Acute Plan 47-year-old woman admitted with alcohol intoxication and withdrawal Acute alcohol intoxication/alcohol withdrawal Continue phenobarbital protocol Folic acid, multivitamin and thiamine supplementation IV fluids seen by recovery team, not interested in detox bedsearch, has appt at [facility] to start meds for etoh use Hypomagnesemia mag 1.2 replace with IV and continue po supplementation Mild transaminitis Secondary to alcohol abuse LFTs trending down Asthma No exacerbation Albuterol as needed sign History of tachycardia Continue beta-lisa Hypertension Continue chlorthalidone, lisinopril GERD Continue PPI DVT prophylaxis with heparin Attending Dr. Gage Full code Patient requires 2 inpatient midnights for treatment of alcohol withdrawal and intoxication requiring phenobarbital protocol to avoid severe withdrawals Time Spent With Patient Time: Total time managing care of this patient today ____ minutes. Quality Stroke Does the patient have a stroke diagnosis?: No VTE Prior VTE?: No VTE Risk Level:: Medical - moderate - high VTE Device Contraindication: Treatment Not Indicated VTE Drug Contraindication: N/A - Med Ordered
[2023-01-01 15:06] VITALS: BP 142/94; PULSE 98; RESP 18; TEMP 36.8; O2SAT 96
--- NOTE | 2023-01-01 15:12 | MHC.RECOVRN ---
This play writer met with patient after addiction consult placed. Patient was awake sitting up in bed, patient reports dizzyness, nausea, abdominal pain currently. Patient reports had met x's 1 with Mark Martin at [facility], who prescribed Naltrexone. Patient states plans to start taking Naltrexone as written upon d/c and f/u with Mark Martin at [facility]. Patient states has therapist and psychiatrist at [facility]. Patient declines recovery supports at this time, patient states is a longer, isolates and interacting with people triggers my anxiety . Patient encouraged to call Addiction/Recovery team with any questions/concerns. Please refer to earlier forestry and wildlife manager note for comprehensive ETOH hx.
[2023-01-01] MEDS: Potassium Chloride ER 20 MEQ TAB.ER.PRT PO (16:52)
[2023-01-01 16:56] LABS: OBS Int Ctl Valid YES; OBS1 POSITIVE (NEGATIVE)
[2023-01-01] MEDS: ondansetron HCL 4 MG/2 ML VIAL IVPUSH (19:08)
[2023-01-01 19:46] VITALS: BP 140/110; PULSE 101; RESP 18; TEMP 36.8; O2SAT 96
[2023-01-01] MEDS: Loperamide HCl 2 MG CAPSULE PO (20:00)
--- NOTE | 2023-01-01 23:25 | PC.NURSE ---
At 1999 pt's BP was 140/[address] Rafita marcos.
[2023-01-02] MEDS: LORazepam 1 MG TABLET PO ×4 (00:16→23:59)
[2023-01-02 02:16] VITALS: BP 141/103; PULSE 108; RESP 20; TEMP 36.7; O2SAT 98
[2023-01-02] MEDS: Lactated Ringers 1,000 ML 100 ML IVCONT (03:37)
[2023-01-02] MEDS: Heparin Sodium,Porcine 5,000 UNIT/ML VIAL 5000 UNIT SUBCUT ×2 (05:14→17:41)
[2023-01-02] MEDS: Omeprazole 20 MG CAPSULE.DR PO (05:14)
[2023-01-02 06:27] LABS: Hematocrit 33.8 % (37.0-47.0); Hemoglobin 11.5 g/dl (12.0-16.0); Mean Corpuscular Hemoglobin 30.7 pg (27.0-33.0); Mean Corpuscular Volume 90.4 fL (80.0-98.0); Mean Platelet Volume 11.2 fL (9.4-12.3); Platelet Count 171 X10*3/uL (160-400); Red Blood Count 3.74 X10*6/uL (4.20-5.50); Red Cell Distribution Width 14.3 % (11.0-16.0); White Blood Count 6.1 X10*3/uL (4.8-10.8)
[2023-01-02 07:37] VITALS: BP 172/112; PULSE 88; RESP 16; TEMP 36.7; O2SAT 98
[2023-01-02 07:40] VITALS: BP 163/100
[2023-01-02] MEDS: lisinopriL 40 MG TABLET PO (07:53)
[2023-01-02] MEDS: hydroCHLOROthiazide 25 MG TABLET PO (07:53)
[2023-01-02] MEDS: carvediloL 3.125 MG TABLET PO ×2 (07:53→22:10)
[2023-01-02] MEDS: PHENobarbitaL 15 MG TABLET 45 MG PO ×2 (07:54→22:10)
[2023-01-02] MEDS: Thiamine HCL 100 MG TABLET PO (07:54)
[2023-01-02] MEDS: Folic Acid 1 MG TABLET PO (07:54)
[2023-01-02] MEDS: Multivitamin TABLET 1 TAB PO (07:55)
[2023-01-02] MEDS: Magnesium Oxide 400 MG TABLET PO ×2 (07:56→17:41)
[2023-01-02 08:00] VITALS: PULSE 88
[2023-01-02] MEDS: Cholecalciferol (Vitamin D3) 25 MCG TABLET PO (08:00)
[2023-01-02 08:04] LABS: Magnesium 1.3 mg/dL (1.6-2.6)
[2023-01-02] MEDS: Magnesium Sulfate/H2O 2 GM/50 ML PIGGYBACK IV ×2 (11:03→22:11)
--- NOTE | 2023-01-02 12:38 | MHC.CM.PN ---
PER MD ROUNDS, PT EXPECTED TO DC TOMORROW, HOME WITH RESUMPTION OF [employer] PT TO ARRANGE TRANSPORT
--- NOTE | 2023-01-02 14:26 | HO.PM.IMPN ---
Subjective Subjective Date of Service: 01/02/23 Interval History: seen and examined this morning follow up for alcohol withdrawal some mild lower abdominal cramping, diarrhea overnight Review of Systems Review of Systems: Yes all other systems are reviewed and are negative Constitutional Constitutional: Denies chills and Denies fever(s) Cardiovascular Cardiovascular: Denies chest pain, Denies palpitations and Denies dyspnea Respiratory Respiratory: Denies cough and Denies dyspnea Gastrointestinal Gastrointestinal: Reports abdominal pain and Reports diarrhea Endocrine Endocrine: Denies palpitations Physical Exam Vital Signs: Vital Signs: Last Vital Signs Temp 98.0 F 01/02/23 07:37 Pulse 88 01/02/23 08:00 Resp 16 01/02/23 07:37 BP 163/100 H 01/02/23 07:40 Pulse Ox 98 01/02/23 07:37 O2 Del Method 01/02/23 07:37 BMI result Body Mass Index 27.3 Const: General: alert and awake Nutritional Appearance: average body habitus Orientation/consciousness: patient oriented x3 Resp: Effort & Inspection: normal respiratory effort and able to speak in complete sentences Cardio: Rate: regular rate Heart sounds: S1 normal heart sound present and S2 normal heart sound present GI: Other: reporting lower abdominal discomfort, does not appear tender on exam Inspection: No distended Palpation (GI): Soft to palpation Neuro: General: patient oriented x3 and CN's II-XI intact bilaterally Extrem: General: Yes no pedal edema Objective Data Active Medications Acetaminophen (Acetaminophen 325 Mg Tablet) 650 mg PO Q6H PRN PRN Reason: Pain, Mild (Pain Scale 1-3) Albuterol Sulfate (Albuterol Sulfate 90 Mcg 8 Gm Inhaler) 2 puff INHALE Q4H PRN PRN Reason: shortness of breath or wheezing Carvedilol (Carvedilol 3.125 Mg Tablet) 3.125 mg PO BID [facility]; Protocol Last Admin: 01/02/23 07:53 Dose: 3.125 mg Documented By: NANCY Cyclobenzaprine HCl (Cyclobenzaprine Hcl 10 Mg Tablet) 10 mg PO BEDTIME PRN PRN Reason: muscle spasm Docusate Sodium (Docusate Sodium 100 Mg Capsule) 100 mg PO BID PRN PRN Reason: Constipation Folic Acid (Folic Acid 1 Mg Tablet) 1 mg PO DAILY [facility] Last Admin: 01/02/23 07:54 Dose: 1 mg Documented By: NANCY Heparin Sodium (Porcine) (Heparin Sodium,Porcine 5,000 Unit/Ml Vial) 5,000 unit SUBCUT Q12H [facility] Last Admin: 01/02/23 05:14 Dose: 5,000 unit Documented By: PAVEL Hydrochlorothiazide (Hydrochlorothiazide 25 Mg Tablet) 25 mg PO DAILY [facility] Last Admin: 01/02/23 07:53 Dose: 25 mg Documented By: NANCY Magnesium Sulfate (Magnesium Sulfate/H2o) 2 gm in 50 mls @ 25 mls/hr IV BID [facility] Stop: 01/03/23 10:14 Last Infusion: 01/02/23 13:03 Dose: 0 mls/hr Documented By: GORDON Lisinopril (Lisinopril 40 Mg Tablet) 40 mg PO DAILY [facility]; Protocol Last Admin: 01/02/23 07:53 Dose: 40 mg Documented By: NANCY Lorazepam (Lorazepam 1 Mg Tablet) 1 mg PO Q4H PRN PRN Reason: Breakthrough alcohol withdrawa Stop: 01/04/23 00:08 Last Admin: 01/02/23 11:10 Dose: 1 mg Documented By: NANCY Magnesium [facility]ide ([facility] 400 Mg [facility]t) [facility] Last Admin: 01/02/23 07:56 Dose: 400 mg Documented By: NANCY Multivitamins/Vitamin C (Multivitamin Tablet) 1 tab PO DAILY [facility] Last Admin: 01/02/23 07:55 Dose: 1 tab Documented By: NANCY Omeprazole (Omeprazole 20 Mg Capsule.) 20 mg PO DAILY@0630 [facility] Last Admin: 01/02/23 05:14 Dose: 20 mg Documented By: PAVEL Ondansetron HCl (Ondansetron Hcl 4 Mg/2 Ml Vial) 4 mg IVPUSH Q8H PRN PRN Reason: Nausea and Vomiting Last Admin: 01/01/23 19:08 Dose: 4 mg Documented By: SARAH Pharmacy Consult (Consult Rx Etoh Phenob Im/Po) 1 each MISCELLANE ONCE PRN; Protocol PRN Reason: Consult order Pharmacy Consult (Consult Rx Perform Med Rec) 1 each MISCELLANE ONCE PRN PRN Reason: Consult order Phenobarbital (Phenobarbital 15 Mg Tablet) 45 mg PO BID [facility]; Protocol Stop: 01/02/23 21:01 Last Admin: 01/02/23 07:54 Dose: 45 mg Documented By: NANCY Phenobarbital (Phenobarbital 15 Mg Tablet) 15 mg PO BID [facility]; Protocol Stop: 01/04/23 21:01 Phenobarbital (Phenobarbital 15 Mg Tablet) 15 mg PO DAILY [facility]; Protocol Stop: 01/06/23 09:01 Sodium Chloride (0.9 % Sodium Chloride Flush 3 Ml Syringe) 3 ml IVFLUSH QSHIFT [facility] Last Admin: 01/02/23 07:48 Dose: Not Given Documented By: NANCY Non-Admin Reason: IV Running Thiamine HCl (Thiamine Hcl 100 Mg Tablet) 100 mg PO DAILY [facility] Last Admin: 01/02/23 07:54 Dose: 100 mg Documented By: NANCY Vitamin D (Cholecalciferol (Vitamin D3) 25 Mcg Tablet) 25 mcg PO DAILY [facility] Last Admin: 01/02/23 08:00 Dose: 25 mcg Documented By: NANCY Labs 01/02/23 05:21 01/01/23 06:03 Labs: Laboratory Results - last 24 hr 01/01/23 01/02/23 01/02/23 16:17 05:21 05:21 MCV 90.4 MCH 30.7 MCHC 34.0 RDW 14.3 Plt Count 171 MPV 11.2 Absolute Nucleated RBC 0.000 Nucleated RBC % (auto) 0.0 Magnesium 1.3 L* Stool Occult Blood POSITIVE Assessment and Plan (1) Alcohol withdrawal: Status: Acute Plan 47-year-old woman admitted with alcohol intoxication and withdrawal Acute alcohol intoxication/alcohol withdrawal Continue phenobarbital protocol. APRIL trending down Folic acid, multivitamin and thiamine supplementation seen by recovery team, not interested in detox bedsearch, has appt at [facility] to start meds for etoh use Hypomagnesemia mag 1.3 r/t etoh and diarrhea replace with IV and continue po supplementation diarrhea stool occult + reports intermittent blood on TP cramping abdominal pain H/H stable will check CT abdomen Mild transaminitis Secondary to alcohol abuse LFTs trending down Asthma No exacerbation Albuterol as needed sign History of tachycardia Continue beta-lisa Hypertension Continue chlorthalidone, lisinopril GERD Continue PPI DVT prophylaxis with heparin Attending Dr. Gage Full code requires ongoing inpatient hospitalization for alcohol withdrawal, low magnesium, abdominal pain Time Spent With Patient Time: Total time managing care of this patient today ____ minutes. Quality Stroke Does the patient have a stroke diagnosis?: No VTE Prior VTE?: No VTE Risk Level:: Medical - moderate - high VTE Device Contraindication: Treatment Not Indicated VTE Drug Contraindication: N/A - Med Ordered
[2023-01-02 16:00] VITALS: BP 135/96; PULSE 105; RESP 20; TEMP 36.6; O2SAT 98
[2023-01-02] MEDS: 0.9 % Sodium Chloride Flush 3 ML SYRINGE IVFLUSH ×2 (17:44→22:20)
[2023-01-02 20:00] VITALS: BP 136/89; PULSE 101; RESP 18; TEMP 36.6; O2SAT 97
[2023-01-02] MEDS: Famotidine/PF 20 MG/2 ML VIAL IVPUSH (23:59)
[2023-01-02] MEDS: Docusate Sodium 100 MG CAPSULE PO (23:59)
[2023-01-03 04:00] VITALS: BP 150/83; PULSE 94; RESP 18; TEMP 36.2; O2SAT 100
[2023-01-03] MEDS: Heparin Sodium,Porcine 5,000 UNIT/ML VIAL 5000 UNIT SUBCUT (06:08)
[2023-01-03] MEDS: Omeprazole 20 MG CAPSULE.DR PO (06:08)
[2023-01-03 08:00] VITALS: BP 147/101; PULSE 98; RESP 18; TEMP 36.6; O2SAT 99
[2023-01-03] MEDS: 0.9 % Sodium Chloride Flush 3 ML SYRINGE IVFLUSH (08:03)
[2023-01-03] MEDS: Cholecalciferol (Vitamin D3) 25 MCG TABLET PO (08:05)
[2023-01-03] MEDS: Magnesium Oxide 400 MG TABLET PO (08:06)
[2023-01-03] MEDS: PHENobarbitaL 15 MG TABLET PO (08:06)
[2023-01-03] MEDS: Folic Acid 1 MG TABLET PO (08:06)
[2023-01-03] MEDS: LORazepam 1 MG TABLET PO (08:06)
[2023-01-03] MEDS: Multivitamin TABLET 1 TAB PO (08:06)
[2023-01-03] MEDS: hydroCHLOROthiazide 25 MG TABLET PO (08:06)
[2023-01-03] MEDS: carvediloL 3.125 MG TABLET PO (08:07)
[2023-01-03] MEDS: Thiamine HCL 100 MG TABLET PO (08:07)
[2023-01-03] MEDS: lisinopriL 40 MG TABLET PO (08:07)
[2023-01-03] MEDS: Magnesium Sulfate/H2O 2 GM/50 ML PIGGYBACK IV (08:07)
--- NOTE | 2023-01-03 09:44 | HO.PM.IMPN ---
Subjective Subjective Date of Service: 01/03/23 Interval History: seen and examined this morning follow up for alcohol withdrawal some mild lower abdominal cramping, diarrhea resolved, now feels more constipated Review of Systems Review of Systems: Yes all other systems are reviewed and are negative Constitutional Constitutional: Denies chills and Denies fever(s) Cardiovascular Cardiovascular: Denies chest pain, Denies palpitations and Denies dyspnea Respiratory Respiratory: Denies cough and Denies dyspnea Gastrointestinal Gastrointestinal: Reports abdominal pain and Reports diarrhea Endocrine Endocrine: Denies palpitations Physical Exam Vital Signs: Vital Signs: Last Vital Signs Temp 97.8 F 01/03/23 08:00 Pulse 98 01/03/23 08:00 Resp 18 01/03/23 08:00 BP 147/101 H 01/03/23 08:00 Pulse Ox 99 01/03/23 08:00 O2 Del Method 01/03/23 08:00 BMI result Body Mass Index 27.3 Appearing in no acute distress lung sounds are clear to auscultation heart regular rate rhythm, clear S1, S2 positive bowel sounds, abdomen is soft, nontender neuro patient is alert x3, no focal deficits Objective Data Active Medications Acetaminophen (Acetaminophen 325 Mg Tablet) 650 mg PO Q6H PRN PRN Reason: Pain, Mild (Pain Scale 1-3) Albuterol Sulfate (Albuterol Sulfate 90 Mcg 8 Gm Inhaler) 2 puff INHALE Q4H PRN PRN Reason: shortness of breath or wheezing Carvedilol (Carvedilol 3.125 Mg Tablet) 3.125 mg PO BID [facility]; Protocol Last Admin: 01/03/23 08:07 Dose: 3.125 mg Documented By: SCHUYLER Cyclobenzaprine HCl (Cyclobenzaprine Hcl 10 Mg Tablet) 10 mg PO BEDTIME PRN PRN Reason: muscle spasm Docusate Sodium (Docusate Sodium 100 Mg Capsule) 100 mg PO BID PRN PRN Reason: Constipation Last Admin: 01/02/23 23:59 Dose: 100 mg Documented By: FRANTZ Folic Acid (Folic Acid 1 Mg Tablet) 1 mg PO DAILY [facility] Last Admin: 01/03/23 08:06 Dose: 1 mg Documented By: SCHUYLER Heparin Sodium (Porcine) (Heparin Sodium,Porcine 5,000 Unit/Ml Vial) 5,000 unit SUBCUT Q12H [facility] Last Admin: 01/03/23 06:08 Dose: 5,000 unit Documented By: FRANTZ Hydrochlorothiazide (Hydrochlorothiazide 25 Mg Tablet) 25 mg PO DAILY [facility] Last Admin: 01/03/23 08:06 Dose: 25 mg Documented By: SCHUYLER Magnesium Sulfate (Magnesium Sulfate/H2o) 2 gm in 50 mls @ 25 mls/hr IV BID [facility] Stop: 01/03/23 10:14 Last Admin: 01/03/23 08:07 Dose: 25 mls/hr Documented By: SCHUYLER Lisinopril (Lisinopril 40 Mg Tablet) 40 mg PO DAILY [facility]; Protocol Last Admin: 01/03/23 08:07 Dose: 40 mg Documented By: SCHUYLER Lorazepam (Lorazepam 1 Mg Tablet) 1 mg PO Q4H PRN PRN Reason: Breakthrough alcohol withdrawa Stop: 01/04/23 00:08 Last Admin: 01/03/23 08:06 Dose: 1 mg Documented By: SCHUYLER Magnesium Oxide (Magnesium Oxide 400 Mg Tablet) 400 mg PO BIDPC [facility] Last Admin: 01/03/23 08:06 Dose: 400 mg Documented By: SCHUYLER Multivitamins/Vitamin C (Multivitamin Tablet) 1 tab PO DAILY [facility] Last Admin: 01/03/23 08:06 Dose: 1 tab Documented By: SCHUYLER Omeprazole (Omeprazole 20 Mg Capsule.Dr) 20 mg PO DAILY@0630 [facility] Last Admin: 01/03/23 06:08 Dose: 20 mg Documented By: FRANTZ Ondansetron HCl (Ondansetron Hcl 4 Mg/2 Ml Vial) 4 mg IVPUSH Q8H PRN PRN Reason: Nausea and Vomiting Last Admin: 01/01/23 19:08 Dose: 4 mg Documented By: SARAH Pharmacy Consult (Consult Rx Etoh Phenob Im/Po) 1 each MISCELLANE ONCE PRN; Protocol PRN Reason: Consult order Pharmacy Consult (Consult Rx Perform Med Rec) 1 each MISCELLANE ONCE PRN PRN Reason: Consult order Phenobarbital (Phenobarbital 15 Mg Tablet) 15 mg PO BID [facility]; Protocol Stop: 01/04/23 21:01 Last Admin: 01/03/23 08:06 Dose: 15 mg Documented By: SCHUYLER Phenobarbital (Phenobarbital 15 Mg Tablet) 15 mg PO DAILY [facility]; Protocol Stop: 01/06/23 09:01 Sodium Chloride (0.9 % Sodium Chloride Flush 3 Ml Syringe) 3 ml IVFLUSH QSHIFT [facility] Last Admin: 01/03/23 08:03 Dose: 3 ml Documented By: SCHUYLER Thiamine HCl (Thiamine Hcl 100 Mg Tablet) 100 mg PO DAILY [facility] Last Admin: 01/03/23 08:07 Dose: 100 mg Documented By: SCHUYLER Vitamin D (Cholecalciferol (Vitamin D3) 25 Mcg Tablet) 25 mcg PO DAILY [facility] Last Admin: 01/03/23 08:05 Dose: 25 mcg Documented By: SCHUYLER Labs 01/02/23 05:21 01/01/23 06:03 Assessment and Plan (1) Alcohol withdrawal: Status: Acute Plan 47-year-old woman admitted with alcohol intoxication and withdrawal Acute alcohol intoxication/alcohol withdrawal Continue phenobarbital protocol. Folic acid, multivitamin and thiamine supplementation seen by recovery team, not interested in detox bedsearch, has appt at [facility] to start meds for etoh use Hypomagnesemia r/t etoh and diarrhea replace with IV and continue po supplementation diarrhea. resolved stool occult + reports intermittent blood on TP cramping abdominal pain H/H stable CT abdomen hepatic steatatosis Mild transaminitis Secondary to alcohol abuse LFTs trending down Asthma No exacerbation Albuterol as needed sign History of tachycardia Continue beta-lisa Hypertension Continue chlorthalidone, lisinopril GERD Continue PPI DVT prophylaxis with heparin Attending Dr. Lee Full code requires ongoing inpatient hospitalization for alcohol withdrawal, low magnesium, abdominal pain Time Spent With Patient Time: Total time managing care of this patient today ____ minutes. Quality Stroke Does the patient have a stroke diagnosis?: No VTE Prior VTE?: No VTE Risk Level:: Medical - moderate - high VTE Device Contraindication: Treatment Not Indicated VTE Drug Contraindication: N/A - Med Ordered
[2023-01-03 10:31] LABS: Alanine Aminotransferase 44 U/L (0-31); Albumin Level 3.5 g/dL (3.5-5.0); Alkaline Phosphatase 119 U/L (39-117); Anion Gap 14 (12-20); Aspartate Amino Transferase 44 U/L (5-31); Bilirubin Direct < 0.2 mg/dL (0.0-0.5); Bilirubin Total 0.3 mg/dL (0.0-1.0); Blood Urea Nitrogen 15 mg/dL (9-16); Calcium 8.6 mg/dL (8.4-10.2); Carbon Dioxide 25 mmol/L (22-29); Chloride 99 mmol/L (96-108); Creatinine Clr Calc Pharmacy 101.1; Estimated Glomerular Filt Rate > 60; Glucose Random 155 mg/dL (60-115); Magnesium 2.2 mg/dL (1.6-2.6); Potassium 4.3 mmol/L (3.3-5.1); Sodium 134 mmol/L (135-145); Total Protein 6.4 g/dL (6.5-8.0)
--- NOTE | 2023-01-03 11:03 | PM.DS ---
DS: Providers Provider Date of Service: 01/03/23 Date of admission: 12/31/22 14:08 Primary care physician: Shereen Latham MD Consults: 12/31/22 00:09 Consult to Care Team Stat Comment: Reason for consultation: alcoholic, depression Attending physician on discharge: Hernan Lee Discharging clinician: Deirdre Cordoba DS: Diagnosis Discharge Diagnosis (1) Alcohol withdrawal: Status: Acute DS: Summary Hospital Course Hospital Course: 47-year-old woman with history of heavy alcohol abuse presenting with tremors, nausea, generalized body pain, diarrhea and abdominal cramps.? She reports that she had been drinking heavy for the last 9 days she drinks hard liquor at least a pint.? She denied chest pain, shortness breath, vomiting, sick contacts, recent travel.? She reports that she generally drinks alone and drinks heavy.? She had been sober for a time of 5 years at 1 point in her life.? In the ER, her labs are actually within acceptable limits mildly elevated liver enzymes which is not a surprise with her heavy alcohol use.? U tox 359.? She was noted to be tachycardic and mildly tachypneic.? The ER she was given 2 L of IV fluids, Pepcid, Ativan, Zofran and was started on phenobarbital protocol.? She will be admitted for further management treatment of alcohol intoxication or withdrawal. Acute alcohol intoxication/alcohol withdrawal treated with phenobarbital protocol. Folic acid, multivitamin and thiamine supplementation seen by recovery team, not interested in detox bedsearch, has appt at [facility] [address] to start meds for etoh use encouraged to stop drinking for good Hypomagnesemia r/t etoh and diarrhea replace with IV and continue po supplementation at home diarrhea. resolved stool occult + cramping abdominal pain H/H stable CT abdomen hepatic steatatosis Mild transaminitis Secondary to alcohol abuse LFTs trending down Asthma No exacerbation History of tachycardia Continue beta-lisa Hypertension Continue chlorthalidone, lisinopril GERD Continue PPI Time Spent with Patient Time attestation: Total time managing care of this patient today ____ minutes. Discharge coordination time: Greater than 30 minutes Quality: Safe Use of Opioids Does Pt have an Active Cancer Diagnosis on the Problem List?: No Quality: Stroke Does the patient have a stroke diagnosis?: No Physical Exam Vital Signs: Vital Signs: Last Vital Signs Temp 97.8 F 01/03/23 08:00 Pulse 98 01/03/23 08:00 Resp 18 01/03/23 08:00 BP 147/101 H 01/03/23 08:00 Pulse Ox 99 01/03/23 08:00 O2 Del Method 01/03/23 08:00 BMI result Body Mass Index 27.3 Appearing in no acute distress lung sounds are clear to auscultation heart regular rate rhythm, clear S1, S2 positive bowel sounds, abdomen is soft, nontender neuro patient is alert x3, no focal deficits DS: Data Data Completed and Pending Completed studies during hospitalization [Text1]: Procedures Detoxification Services for Substance Abuse Treatment (09/30/21) Labs on day of discharge: Laboratory Results - last 24 hr 01/03/23 09:58 Sodium 134 L Potassium 4.3 D Chloride 99 Carbon Dioxide 25 Anion Gap 14 BUN 15 Creatinine 0.73 Estim Creat Clear Calc 101.1 Estimated GFR > 60 Random Glucose 155 H Calcium 8.6 D Magnesium 2.2 Total Bilirubin 0.3 Direct Bilirubin < 0.2 AST 44 H ALT 44 H Alkaline Phosphatase 119 H Total Protein 6.4 L Albumin 3.5 Discharge Plan Discharge Anticipated Discharge Date/Time: 01/03/23 10:59 Patient Disposition: Home, Self-Care Discharge Diagnosis: Alcohol intoxication and withdrawal Hepatic steatosis Hypomagnesemia Diarrhea transaminitis Referrals: Shereen Latham MD [Primary Care Provider] - 1 Week Discharge Medications: Continued (DME) ACL defiance brace See Rx Instructions .ROUTE .MEDSUPPLY Qty: 1 0RF Rx Instructions: n/a albuterol sulfate 90 mcg/actuation HFA aerosol inhaler 2 puff inhalation Q4-6H PRN (Reason: shortness of breath or wheezing) Qty: 8.5 0RF thiamine HCl (vitamin B1) 100 mg tablet 1 tab PO DAILY omeprazole 20 mg capsule,delayed release(DR/EC) 1 cap PO DAILY@0630 folic acid 1 mg tablet 1 tab PO DAILY magnesium oxide 400 mg (241.3 mg magnesium) Tablet 400 mg PO BIDPC 30 Days Qty: 60 0RF naltrexone 50 mg tablet See Rx Instructions .ROUTE .COMPLEX Rx Instructions: Take 25 mg for 3-4 days, then take 50 mg daily chlorthalidone 25 mg tablet 1 tab PO DAILY carvedilol 3.125 mg tablet 1 tab PO BID docusate sodium 100 mg capsule 1 cap PO BID PRN (Reason: Constipation) cholecalciferol (vitamin D3) [Vitamin D3] 25 mcg (1,000 unit) capsule 1 cap PO QAM Certavite-Antioxidant 18-400 mg-mcg tablet 1 tab PO DAILY acetaminophen 500 mg tablet 1 tab PO Q6-8H PRN (Reason: fever) cyclobenzaprine 10 mg tablet 10 mg PO BEDTIME PRN (Reason: muscle spasm) Qty: 7 0RF lidocaine 5 % adhesive patch,medicated 1 patch topical DAILY PRN (Reason: pain) Qty: 15 0RF Rx Instructions: leave on most painful area for up to 12 hrs lisinopril 40 mg tablet 40 mg PO QAM Discharge Orders: Discharge Order (Routine); Ordered 01/03/23 Ordered By: Deirdre Cordoba Diet: Advance to usual diet Activity on Discharge: As tolerated Stand Alone Forms: Patient Portal Discharge page Care Plan Goals: Stop drinking alcohol Get help from outpatient programs to help you remain sober Drink plenty of fluids daily, get adequate rest, exercise daily/walk, increase fruits and vegetables in your diet Health Concerns: Alcohol withdrawal and intoxication Hypomagnesemia Diarrhea transaminitis Plan of Treatment: Follow-up with your primary care provider as needed Take all medications as prescribed Assessment: see discharge summary
--- NOTE | 2023-01-03 11:17 | MHC.CM.PN ---
PT TO DC HOME TODAY WITH NO SERVICES VIA SELF-ARRANGED TRANSPORT
== END 2023-01-03 13:46 | disposition home or self-care (01) | DRG 775 ==
LOC: HO.ED 12-31 11:46 → HO.EDOVER 12-31 14:17 → HO.S3 01-01 05:24
PROVIDERS: Internal Medicine; Physician Assistant Medical; Admitting Provider Nurse Practitioner Acute Care; Emergency Provider Emergency Medicine; PCP Family Medicine; Visit Provider Nurse Practitioner Acute Care
DX: F10.239 Alcohol dependence with withdrawal, unspecified (principal); F10.229 Alcohol dependence with intoxication, unspecified; K76.0 Fatty (change of) liver, not elsewhere classified; F41.9 Anxiety disorder, unspecified; E83.42 Hypomagnesemia; F17.210 Nicotine dependence, cigarettes, uncomplicated; F32.A Depression, unspecified; Y90.8 Blood alcohol level of 240 mg/100 ml or more; Z71.6 Tobacco abuse counseling; J45.909 Unspecified asthma, uncomplicated; I10 Essential (primary) hypertension; K21.9 Gastro-esophageal reflux disease without esophagitis; Z20.822 Contact with and (suspected) exposure to COVID-19; Z91.040 Latex allergy status; Z88.0 Allergy status to penicillin; Z88.2 Allergy status to sulfonamides; Z88.5 Allergy status to narcotic agent; Z88.6 Allergy status to analgesic agent; Z79.899 Other long term (current) drug therapy
CPT/HCPCS: 36415; 74176; 80048; 80053; 80076; 82077; 82272; 83690; 83735; 85025; 85027; 87635; 93005; 99285; J1643; J2060; J2405; J2560; J3475

== ENCOUNTER 2023-02-09 14:47 | Outpatient (REF) | payer MEDICAID, SELFPAY | END 2023-02-09 14:48 | disposition home or self-care (01) | LOC: HO.HOSX 14:47 | PROVIDERS: PCP Family Medicine; Visit Provider Physician Assistant | DX: M17.32 Unilateral post-traumatic osteoarthritis, left knee (principal) | CPT/HCPCS: 99212 ==

== ENCOUNTER 2023-02-18 01:30 | Emergency (ER) | payer MEDICAID, SELFPAY ==
--- NOTE | ~2023-02-18 | CT_ITS ---
EXAMINATION: CT CHEST WITHOUT CONTRAST CLINICAL INFORMATION: Midsternal chest pain COMPARISON: Chest x-ray 06/04/2022 TECHNIQUE: Multidetector volumetric CT imaging of the chest was done. Axial MIP volume rendering provided. Sagittal and coronal reformatted images were obtained. This CT examination was performed using dose optimization techniques as appropriate, variously including the following: *Automated exposure control *Adjustment of mA and/or kV according to patient size (this includes techniques or standardized protocols for targeted exams where dose is matched to indication/reason for exam; i.e. extremities or head) *Use of iterative reconstruction technique DLP: 285 mGy-cm FINDINGS: LUNGS: There is volume loss in the right middle lobe which appears similar to 09/30/2021. No acute consolidation identified bilaterally. MEDIASTINUM: The visualized thyroid gland is unremarkable. There are subcentimeter mediastinal lymph nodes within the range of normal variation. Cardiac size is within normal limits; trace pericardial fluid. CORONARY ARTERY CALCIFICATION: Present PLEURA: There is no pleural effusion. No pleural mass or thickening. AXILLA: No axillary lymphadenopathy is present. Right breast implant is present, with tiny focus of gas in the posterior portion. UPPER ABDOMEN: Unremarkable. OSSEOUS STRUCTURES: Unremarkable. CT/CT chest wo IV con IMPRESSION: 1. No acute intrathoracic findings identified. 2. Chronic volume loss in the right middle lobe. 3. Coronary artery calcifications. Correlation with cardiac risk factors is recommended.
[2023-02-18 01:32] VITALS: BP 140/89; PULSE 109; RESP 18; TEMP 36.1; O2SAT 100; BMI 25.0
--- NOTE | 2023-02-18 01:35 | ECG_ITS ---
Test Reason : CHEST PAIN Blood Pressure : / mmHG Vent. Rate : 097 BPM Atrial Rate : 097 BPM P-R Int : 180 ms QRS Dur : 074 ms QT Int : 388 ms P-R-T Axes : 082 021 080 degrees QTc Int : 492 ms Normal sinus rhythm Prolonged QT Abnormal ECG When compared with ECG of 30-DEC-2022 21:52, No significant change was found Referred By: Generic ED Physician Electronically Signed By:DANO TRIPP
[2023-02-18 01:58] LABS: Basophils Absolute Auto 0.1 X10*3/uL (0.0-0.2); Eosinophils Absolute Auto 0.1 X10*3/uL (0.0-0.4); Hematocrit 37.3 % (37.0-47.0); Hemoglobin 12.5 g/dl (12.0-16.0); Imm Gran Abs Auto 0.06 X10*3/uL (0.00-0.03); Imm Gran Pct Auto 0.6 % (0.0-0.4); Lymphocytes Absolute Auto 2.9 X10*3/uL (1.2-4.9); Lymphocytes Percent Auto 27.5 % (20-40); MANUAL DIFF FLAG NO; Mean Corpuscular HGB Conc 33.5 g/dl (31.0-35.0); Mean Corpuscular Hemoglobin 29.8 pg (27.0-33.0); Mean Platelet Volume 10.3 fL (9.4-12.3); Monocytes Absolute Auto 0.8 X10*3/uL (0.1-1.2); Monocytes Percent Auto 7.4 % (2-11); Neutrophils Absolute Auto 6.6 x10*3/uL (2.0-8.3); Neutrophils Percent Auto 62.5 % (45-73); Platelet Count 322 X10*3/uL (160-400); Red Blood Count 4.19 X10*6/uL (4.20-5.50); Red Cell Distribution Width 14.4 % (11.0-16.0); White Blood Count 10.6 X10*3/uL (4.8-10.8)
[2023-02-18 02:18] LABS: Alanine Aminotransferase 29 U/L (0-31); Albumin Level 4.2 g/dL (3.5-5.0); Alkaline Phosphatase 122 U/L (39-117); Anion Gap 18 (12-20); Aspartate Amino Transferase 26 U/L (5-31); Bilirubin Direct 0.2 mg/dL (0.0-0.5); Bilirubin Total 0.7 mg/dL (0.0-1.0); Blood Urea Nitrogen 23 mg/dL (9-16); Calcium 9.1 mg/dL (8.4-10.2); Carbon Dioxide 25 mmol/L (22-29); Chloride 100 mmol/L (96-108); Estimated Glomerular Filt Rate 49; Glucose Random 115 mg/dL (60-115); Lipase 60 U/L (8-78); Sodium 139 mmol/L (135-145); Total Protein 7.4 g/dL (6.5-8.0)
[2023-02-18 02:23] LABS: Troponin-I High Sensitivity 7.1 ng/L (<3.5-17.0)
--- NOTE | 2023-02-18 02:33 | ED_ITS ---
HPI - Chest Pain General Chief Complaint: Chest Pain Stated Complaint: Chest Pain Time Seen by Provider: 02/18/23 01:43 Source: patient Mode of arrival: EMS History of Present Illness HPI narrative: 47-year-old female who is brought in by EMS when she states it is that she was trying to lay down and go to sleep then she began experiencing a sharp pain and she points to the area around her sternal notch and states that it radiates downward and then goes away and then comes back again. She states that this is associated with feelings of shortness of breath but otherwise denies any dizziness, diaphoresis, or nausea. She states she has never had this previously and denies any recent trauma or vomiting episodes. Related Data Home Medications Medication Instructions Recorded Confirmed folic acid 1 mg tablet 1 tab PO DAILY 09/30/21 12/31/22 omeprazole 20 mg capsule,delayed 1 cap PO DAILY@0630 09/30/21 12/31/22 release thiamine HCl (vitamin B1) 100 mg 1 tab PO DAILY 09/30/21 12/31/22 tablet lisinopril 40 mg tablet 40 mg PO QAM 10/15/21 12/31/22 acetaminophen 500 mg tablet 1 tab PO Q6-8H PRN fever 06/04/22 12/31/22 carvedilol 3.125 mg tablet 1 tab PO BID 06/04/22 12/31/22 chlorthalidone 25 mg tablet 1 tab PO DAILY 06/04/22 12/31/22 cholecalciferol (vitamin D3) 25 1 cap PO QAM 06/04/22 12/31/22 mcg (1,000 unit) capsule (Vitamin D3) docusate sodium 100 mg capsule 1 cap PO BID PRN Constipation 06/04/22 12/31/22 multivitamin-ferrous 1 tab PO DAILY 06/04/22 12/31/22 fumarate-folic acid 18 mg-400 mcg tablet (Certavite-Antioxidant) naltrexone 50 mg tablet See Rx Instructions .Route .COMPLEX 12/31/22 Previous Rx's Medication Instructions Recorded ACL defiance brace #1 ea 07/29/21 albuterol sulfate 90 mcg/actuation 2 puff inhalation Q4-6H PRN 09/12/21 aerosol inhaler shortness of breath or wheezing #8.5 grams magnesium oxide 400 mg (241.3 mg 400 mg PO BIDPC 30 days #60 tabs 10/02/21 magnesium) tablet cyclobenzaprine 10 mg tablet 10 mg PO BEDTIME PRN muscle spasm 08/11/22 #7 tabs lidocaine 5 % topical patch 1 patch topical DAILY PRN pain #15 08/11/22 ea Allergies Allergy/AdvReac Type Severity Reaction Status Date / Time amoxicillin [AMOXICILLIN] Allergy Intermediate rash, Verified 02/09/23 14:52 rash/itching Sulfa (Sulfonamide Allergy Intermediate rash/itchin Verified 02/09/23 14:52 Antibiotics) g sulfamethoxazole Allergy Intermediate RASH Verified 02/09/23 14:52 [From BACTRIM] trimethoprim [From BACTRIM] Allergy Intermediate RASH Verified 02/09/23 14:52 hydrocodone [Hydrocodone] Allergy Mild ITCH Verified 02/09/23 14:52 ibuprofen [From Motrin] Allergy Mild UPSET Verified 02/09/23 14:52 STOMACH latex [Latex] Allergy Mild ITCH Verified 02/09/23 14:52 Review of Systems Review of Systems: Pertinent positives and negatives as stated in HPI [facility] Past Medical History Source: nursing notes reviewed Medical History Anxiety Anxiety and depression Breast cancer H/O ETOH abuse History of COVID-19 History of low potassium Hypertension Panic attack Uncontrolled hypertension Surgical History H/O: hysterectomy History of breast lump/mass excision History of carpal tunnel release Hx of tubal ligation Family History Family History Mother Heart disease Alzheimers disease Social History Social History Household Members: None Housing: Apartment Do you presently have visiting nurse or other home services: Yes (back tacker 1 hour per day) Alcohol intake: current Alcohol intake frequency: 3 or more drinks per day Alcohol type: hard liquor Patient Tobacco Use Status: Current someday Tobacco user Tobacco use type: Cigarette Cigarettes Per Day: 10 Second Hand Smoke Exposure: Yes Advance Directives: Yes Advance Directives on File: Yes Advance Directives Date on File: 02/11/22 service: No Current occupational status: disabled Physical Exam Vital Signs: Vital Signs: Last Vital Signs Temp 97 F 02/18/23 01:32 Pulse 109 H 02/18/23 01:32 Resp 18 02/18/23 01:32 BP 140/89 H 02/18/23 01:32 Pulse Ox 100 02/18/23 01:32 O2 Del Method Room Air 02/18/23 01:32 BMI result Body Mass Index 25.0 VITAL SIGNS: Reviewed. GENERAL: Well developed, well nourished, in no acute distress. HEAD: Normocephalic/atraumatic EYES: PERRLA, EOMI EARS: Ext canals without abnormality, TMs non-bulging and non-erythematous NOSE: Nares patent bilateral OROPHARYNX: no oral lesions noted, posterior pharynx clear and non-erythematous without noted tonsillar enlargement/erythema/exudates NECK: Supple, no adenopathy LUNGS: Normal breath sounds. No adventitious sounds or accessory muscle use. SpO2<100> CARDIOVASCULAR: Regular rate and rhythm without noted murmurs, no JVD or lower extremity edema. ABDOMEN: Soft, non-tender, non-distended with bowel sounds. MUSCULOSKELETAL: No tenderness, deformities, or effusions noted on gross i nspection. EXTREMITIES: No cyanosis, clubbing or edema. SKIN: Inspection of the skin reveals no rashes NEUROLOGIC: Alert and oriented x 4. Strength and sensation to light touch were grossly intact x 4. Medications Administered Discontinued Medications Generic Name Dose Route Start Last Admin Trade Name Freq PRN Reason Stop Dose Admin Al Hydroxide/Mg Hydroxide 30 ml 02/18/23 02:35 02/18/23 02:58 Magnesium Hydrox/Alum Hydrox 30 Ml Oral.Susp PO 02/18/23 02:36 30 ml ONCE ONE Administration Lidocaine HCl 10 ml 02/18/23 02:35 02/18/23 02:58 Lidocaine Hcl Viscous 2 % 15 Ml Solution MUCOUS MEM 02/18/23 02:36 10 ml ONCE ONE Administration Sucralfate 1 gm 02/18/23 02:37 02/18/23 02:59 Sucralfate Oral Suspension 1 Gm/10 Ml Oral.Susp PO 02/18/23 02:38 1 gm ONCE ONE Administration Medical Decision Making Medical Decision Making [facility] Narrative: 47-year-old female who comes in with a history that sounds somewhat like esophageal spasm, the history and clinical findings are not suggestive of a pericarditis, in the absence of any vomiting episodes doubt esophageal injury, no fevers or chills to suggest a pneumonia, no intra oral thrush to suggest a possible candidiasis. Will administer both a GI cocktail as well as Carafate and re-evaluate. Review of investigations are otherwise without acute findings. 0423: Her re-evaluated the patient at bedside and she informs me that her pain has significantly improved but is still there mildly. She is remained hemodynamically stable, she was informed of all results and is otherwise discharged home in stable condition. Differential Diagnosis Please see the discussion above Lab Data Please see the discussion above 02/18/23 01:43 02/18/23 01:43 Labs: Lab Results 02/18/23 02/18/23 02/18/23 Range/Units 01:43 01:43 01:43 WBC 10.6 (4.8-10.8) X10*3/uL RBC 4.19 L (4.20-5.50) X10*6/uL Hgb 12.5 (12.0-16.0) g/dl Hct 37.3 (37.0-47.0) % MCV 89.0 (80.0-98.0) fL MCH 29.8 (27.0-33.0) pg MCHC 33.5 (31.0-35.0) g/dl RDW 14.4 (11.0-16.0) % Plt Count 322 D (160-400) X10*3/uL MPV 10.3 (9.4-12.3) fL Immature Gran % (Auto) 0.6 H (0.0-0.4) % Neut % (Auto) 62.5 (45-73) % Lymph % (Auto) 27.5 (20-40) % [place] % (Auto) 7.4 (2-11) % Eos % (Auto) 1.0 (0-4) % Baso % (Auto) 1.0 (0-2) % Lymph # (Auto) 2.9 (1.2-4.9) X10*3/uL [place] # (Auto) 0.8 (0.1-1.2) X10*3/uL Eos # (Auto) 0.1 (0.0-0.4) X10*3/uL Baso # (Auto) 0.1 (0.0-0.2) X10*3/uL Abs Immat Gran (auto) 0.06 H (0.00-0.03) X10*3/uL Absolute Neuts (auto) 6.6 (2.0-8.3) x10*3/uL Absolute Nucleated RBC 0.000 (0.0-0.012) X10*3/uL Nucleated RBC % (auto) 0.0 (0.0-0.2) /100WBC Sodium 139 (135-145) mmol/L Potassium 4.0 (3.3-5.1) mmol/L Chloride 100 (96-108) mmol/L Carbon Dioxide 25 (22-29) mmol/L Anion Gap 18 (12-20) BUN 23 H (9-16) mg/dL Creatinine 1.18 (0.5-1.4) mg/dL Estim Creat Clear Calc 56.0 Estimated GFR 49 Random Glucose 115 (60-115) mg/dL Calcium 9.1 (8.4-10.2) mg/dL Total Bilirubin 0.7 (0.0-1.0) mg/dL Direct Bilirubin 0.2 (0.0-0.5) mg/dL AST 26 (5-31) U/L ALT 29 (0-31) U/L Alkaline Phosphatase 122 H (39-117) U/L Troponin I High Sens 7.1 D (<3.5-17.0) ng/L Total Protein 7.4 (6.5-8.0) g/dL Albumin 4.2 (3.5-5.0) g/dL Lipase 60 (8-78) U/L Ethyl Alcohol < 10 mg/dL Independent Interpretation I performed an independent interpretation of an: EKG Interpretation: Normal sinus rhythm, HR-97, no STEMI, IL/QRS are within normal limits, [id number] Radiology Impression Radiologist Impression: My interpretation is in agreement with radiology's impression of the imaging studies. Chronic Conditions Patient?s care impacted by: Hypertension Discharge Plan Discharge Clinical Impression: Atypical chest pain, Esophageal spasm Patient Disposition: Home, Self-Care Instructions: Chest Pain (ED), Esophageal Spasm (ED) Additional Instructions: 1. Resume all home medications as prescribed. 2. Recommend that you call your primary care provider today and schedule an appointment for re-evaluation and further outpatient management. Return to the ER for any worsening symptoms. Prescriptions: No Action (DME) ACL defiance brace See Rx Instructions .ROUTE .MEDSUPPLY Qty: 1 0RF Rx Instructions: n/a albuterol sulfate 90 mcg/actuation HFA aerosol inhaler 2 puff inhalation Q4-6H PRN (Reason: shortness of breath or wheezing) Qty: 8.5 0RF thiamine HCl (vitamin B1) 100 mg tablet 1 tab PO DAILY omeprazole 20 mg capsule,delayed release(DR/EC) 1 cap PO DAILY@0630 folic acid 1 mg tablet 1 tab PO DAILY magnesium oxide 400 mg (241.3 mg magnesium) Tablet 400 mg PO BIDPC 30 Days Qty: 60 0RF naltrexone 50 mg tablet See Rx Instructions .ROUTE .COMPLEX Rx Instructions: Take 25 mg for 3-4 days, then take 50 mg daily chlorthalidone 25 mg tablet 1 tab PO DAILY carvedilol 3.125 mg tablet 1 tab PO BID docusate sodium 100 mg capsule 1 cap PO BID PRN (Reason: Constipation) cholecalciferol (vitamin D3) [Vitamin D3] 25 mcg (1,000 unit) capsule 1 cap PO QAM Certavite-Antioxidant 18-400 mg-mcg tablet 1 tab PO DAILY acetaminophen 500 mg tablet 1 tab PO Q6-8H PRN (Reason: fever) cyclobenzaprine 10 mg tablet 10 mg PO BEDTIME PRN (Reason: muscle spasm) Qty: 7 0RF lidocaine 5 % adhesive patch,medicated 1 patch topical DAILY PRN (Reason: pain) Qty: 15 0RF Rx Instructions: leave on most painful area for up to 12 hrs lisinopril 40 mg tablet 40 mg PO QAM Referrals: [facility] [Primary Care Provider] -
[2023-02-18 02:56] LABS: Ethanol < 10 mg/dL
[2023-02-18] MEDS: Lidocaine HCl Viscous 2 % 15 ML SOLUTION 10 ML MUCOUS MEM (02:58)
[2023-02-18] MEDS: Magnesium Hydrox/Alum Hydrox 30 ML ORAL.SUSP PO (02:58)
[2023-02-18] MEDS: Sucralfate Oral Suspension 1 GM/10 ML ORAL.SUSP PO (02:59)
[2023-02-18 04:34] VITALS: BP 110/64; PULSE 70; RESP 16; O2SAT 97
== END 2023-02-18 04:36 | disposition home or self-care (01) ==
PROVIDERS: Emergency Provider Student in an Organized Health Care Education/Training Program
DX: R07.89 Other chest pain (principal); K22.4 Dyskinesia of esophagus; M54.6 Pain in thoracic spine; Z79.899 Other long term (current) drug therapy
CPT/HCPCS: 36415; 71250; 80048; 80076; 82077; 83690; 84484; 85025; 93005; 99284

== ENCOUNTER 2023-03-27 06:20 | Outpatient (REF) | payer MEDICAID, SELFPAY | END 2023-03-27 06:21 | disposition home or self-care (01) | LOC: HO.HOSX 06:20 | PROVIDERS: Visit Provider Physician Assistant | DX: Z13.89 Encounter for screening for other disorder (principal) ==

== ENCOUNTER 2023-04-23 15:31 | Outpatient (REF) | payer MEDICAID, SELFPAY ==
--- NOTE | ~2023-04-23 | XR_ITS ---
EXAMINATION: XR FOOT, LEFT CLINICAL INFORMATION: Injury to the foot. Continuing pain. COMPARISON: Right ankle 09/03/2020 TECHNIQUE: 3 views of the left foot. FINDINGS: No acute fracture. No dislocation. Joint spaces are normal. No air radiopaque foreign body. There is a plantar calcaneal spur. Prominent spur at the posterior calcaneus at the insertion of Achilles tendon XR/XR foot LT min 3V IMPRESSION: 1. No acute abnormality. 2. There is a plantar calcaneal spur. Posterior calcaneal spur.
== END 2023-04-23 15:32 | disposition home or self-care (01) ==
LOC: HO.HHCX 15:31
PROVIDERS: Visit Provider Emergency Medicine
DX: S99.922A Unspecified injury of left foot, initial encounter (principal)
CPT/HCPCS: 73630

== ENCOUNTER 2023-05-25 14:31 | Outpatient (AMB) | payer MEDICAID, SELFPAY ==
--- NOTE | 2023-05-25 14:32 | MHC.OFFVIS ---
Intake Intake Visit Reasons: ov- f/u LT knee s/p therapy Intake Note: Azra is a 47 year old female who presents today for a follow up of her left knee. Patient reports that she was unable to complete therapy as her pain was getting worse. She explains that she also had trouble attending appts 2x a week. She was supposed to meet with pain mgmt but missed her appt. Allergies amoxicillin [AMOXICILLIN] Allergy (Intermediate, Verified 02/09/23 14:52) rash, rash/itching Sulfa (Sulfonamide Antibiotics) Allergy (Intermediate, Verified 02/09/23 14:52) rash/itching sulfamethoxazole [From BACTRIM] Allergy (Intermediate, Verified 02/09/23 14:52) RASH trimethoprim [From BACTRIM] Allergy (Intermediate, Verified 02/09/23 14:52) RASH hydrocodone [Hydrocodone] Allergy (Mild, Verified 02/09/23 14:52) ITCH ibuprofen [From Motrin] Allergy (Mild, Verified 02/09/23 14:52) UPSET STOMACH latex [Latex] Allergy (Mild, Verified 02/09/23 14:52) ITCH HPI ov- f/u LT knee s/p therapy HPI Details Azra is a 47 year old woman who presents to discuss her bilateral knee OA pain. She says she was unable to attend all of her PT appointments, and these appointments just caused her increased pain. She was scheduled to attend Pain Management to discuss a GNB, but missed this appointment and has not rescheduled. She complains of pain with daily activity, worse with walking or using stairs. She says she lives on the 4th floor and stairs are particularly painful. She tries to avoid leaving her apartment too often due to her pain. She says she has had an injection once or twice in the past, but this was several years ago and she is unsure if this was helpful. She says she really wants to have surgery, as she is limited in her daily function and she is unable to do the things she wants. She says her mental health is suffering from being stuck at home. She has a Hx of right knee in ~1999. She also complains of shoulder pain and LBP. [facility] [place] Medical History Anxiety Anxiety and depression Breast cancer H/O ETOH abuse History of COVID-19 History of low potassium Hypertension Panic attack Uncontrolled hypertension Surgical History H/O: hysterectomy History of breast lump/mass excision History of carpal tunnel release Hx of tubal ligation Family History Mother Heart disease Alzheimers disease Social History Household Members: None Housing: Apartment Do you presently have visiting nurse or other home services: Yes ([employer] 1 hour per day) Alcohol intake: current Alcohol intake frequency: 3 or more drinks per day Alcohol type: hard liquor Patient Tobacco Use Status: Current someday Tobacco user Tobacco use type: Cigarette Cigarettes Per Day: 10 Second Hand Smoke Exposure: Yes Advance Directives Date on File: 02/11/22 service: No Current occupational status: disabled Review of Systems Const All systems reviewed & are unremarkable except as noted in HPI and below Physical Exam Const General: no acute distress, alert and awake Orientation/consciousness: patient oriented x3 HEENT Head: Yes normocephalic and Yes atraumatic Eyes EOM: EOMs intact bilaterally Resp Effort & Inspection: normal respiratory effort and able to speak in complete sentences Cardio Jugular venous distension: no JVD Skin General skin exam: turgor normal Rashes: no rashes Neuro General: patient oriented x3 Extrem Other: Bilateral Knee: Psych Appearance: grossly normal Affect: normal affect Attitude: cooperative Office Procedures Joint Injection/Drain Joint Injection/Drain Details: Injected 1 mL of Decadron and 3 mL 1% lidocaine and 3 mL of 0.25% Marcaine. Site was prepped using aseptic technique. Patient tolerated the procedure well. Primary Site: right knee Secondary Site: left knee Approach Used: anterolateral Coding - Large joint - Glenohumeral/Tronchanteric Bursa/Intraarticular Procedure code (CPT) selection complete Results Reviewed Results Reviewed: 05/25/23 14:48 BUPivacaine MPF 0.25 % [Sensorcaine-MPF 0.25% 10 ML] 10 ml .ROUTE .STK-MED ONE Lidocaine HCl 1 % [Xylocaine 1 %] 2 ml .ROUTE .STK-MED ONE Lidocaine HCl 2 % MPF [Xylocaine 2 % MPF] 5 ml .ROUTE .STK-MED ONE 05/25/23 14:49 dexAMETHasone sod phosphate [Decadron] 4 mg .ROUTE .STK-MED ONE I personally reviewed relevant radiographs. Severe right knee OA and moderate to severe left knee OA Assessment & Plan Assessment & Plan (1) Bilateral primary osteoarthritis of knee: Code(s): M17.0 - Bilateral primary osteoarthritis of knee Plan: This is a 47 year old woman with moderate-severe bilateral knee OA, R>L. She has pain with daily activity, is limited in her ADLs, and feels her QOL is diminished. She is unable to use stairs or ambulate without pain, and feels her mental health is suffering. She has failed PT and is unable to take NSAIDs due to Gi upset. I discussed her diagnosis and treatment options. I think she would benefit from a TKA in the future but IO would still try conservative treatments given her young age. I injected her bilateral knees today, which she tolerated well, and referred her to Dr. Spann in Pain Management to discuss some treatment with longer efficacy. She will follow up in 3 months. (2) Uncontrolled hypertension: Code(s): I10 - Essential (primary) hypertension Plan Scribed for Anselmo Gates MD by Terrell Shafer, medical resident, on 05/25/23 at 2:50 PM, EST. Orders: Referrals Pain Management Referral M17.0 - Bilateral primary osteoarthritis of knee Coding Level of Care Code Est Pt Level 4 (39150) Diagnoses Bilateral primary osteoarthritis of knee M17.0 Uncontrolled hypertension I10 CPT Codes Coding - 99109 Large joint: 71230 - Large joint ([id number]) Coding - Joint 7: 94450 - Glenohumeral/Tronchanteric Bursa/Intraarticular ([id number])
== END 2023-05-25 15:18 | disposition home or self-care (01) ==
PROVIDERS: Visit Provider Orthopaedic Surgery
DX: M17.0 Bilateral primary osteoarthritis of knee (principal); I10 Essential (primary) hypertension
CPT/HCPCS: 20610; 99214

== ENCOUNTER → 2023-05-25 14:31 | Outpatient (BNVA) | payer MEDICAID, SELFPAY | PROVIDERS: Visit Provider Orthopaedic Surgery | DX: M17.0 Bilateral primary osteoarthritis of knee (principal); I10 Essential (primary) hypertension | CPT/HCPCS: 20610; 99212; J1100 ==

== ENCOUNTER 2023-05-26 10:06 | Outpatient (REF) | payer MEDICAID, SELFPAY ==
[2023-05-26 11:48] LABS: MANUAL DIFF FLAG NO
[2023-05-26 11:56] LABS: Basophils Absolute Auto 0.1 X10*3/uL (0.0-0.2); Basophils Percent Auto 0.4 % (0-2); Hematocrit 37.3 % (37.0-47.0); Hemoglobin 12.2 g/dl (12.0-16.0); Imm Gran Abs Auto 0.19 X10*3/uL (0.00-0.03); Imm Gran Pct Auto 1.4 % (0.0-0.4); Lymphocytes Absolute Auto 2.1 X10*3/uL (1.2-4.9); Lymphocytes Percent Auto 16.1 % (20-40); Mean Corpuscular HGB Conc 32.7 g/dl (31.0-35.0); Mean Corpuscular Hemoglobin 30.9 pg (27.0-33.0); Mean Corpuscular Volume 94.4 fL (80.0-98.0); Mean Platelet Volume 11.1 fL (9.4-12.3); Monocytes Absolute Auto 0.7 X10*3/uL (0.1-1.2); Monocytes Percent Auto 5.3 % (2-11); Neutrophils Absolute Auto 10.1 x10*3/uL (2.0-8.3); Neutrophils Percent Auto 76.8 % (45-73); Platelet Count 410 X10*3/uL (160-400); Red Blood Count 3.95 X10*6/uL (4.20-5.50); Red Cell Distribution Width 13.5 % (11.0-16.0); White Blood Count 13.1 X10*3/uL (4.8-10.8)
[2023-05-26 13:32] LABS: Alanine Aminotransferase 23 U/L (0-31); Albumin Level 4.2 g/dL (3.5-5.0); Alkaline Phosphatase 108 U/L (39-117); Anion Gap 13 (12-20); Aspartate Amino Transferase 16 U/L (5-31); Bilirubin Total 0.4 mg/dL (0.0-1.0); Blood Urea Nitrogen 31 mg/dL (9-16); Calcium 9.7 mg/dL (8.4-10.2); Carbon Dioxide 27 mmol/L (22-29); Chloride 104 mmol/L (96-108); Estimated Glomerular Filt Rate 50; Glucose Random 126 mg/dL (60-115); Lipase 42 U/L (8-78); Potassium 3.9 mmol/L (3.3-5.1); Sodium 140 mmol/L (135-145); Total Protein 7.7 g/dL (6.5-8.0)
== END 2023-05-26 10:07 | disposition home or self-care (01) ==
LOC: HO.HHCL 10:06
PROVIDERS: Visit Provider General Practice
DX: R00.2 Palpitations (principal)
CPT/HCPCS: 36415; 80053; 83690; 85025

== ENCOUNTER 2023-06-05 10:53 | Inpatient (IN) | payer OTHER, MEDICAID, SELFPAY ==
[2023-06-05] VITALS (7 sets, daily range): BP systolic 106–144; BP diastolic 81–95; PULSE 109–131; RESP 16–20; TEMP 36.3–37.3; O2SAT 97–98; BMI 25.5
--- NOTE | ~2023-06-05 | XR_ITS ---
EXAMINATION: XR CHEST CLINICAL INFORMATION: Weakness COMPARISON: 06/04/2022 TECHNIQUE: Frontal view of the chest was obtained. FINDINGS: No significant abnormality is noted involving the heart, lungs, mediastinum, bony thorax or soft tissues. XR/XR chest 1V IMPRESSION: Unremarkable examination.
--- NOTE | 2023-06-05 11:07 | ECG_ITS ---
Test Reason : alcohol withdrawal, SOB Blood Pressure : / mmHG Vent. Rate : 118 BPM Atrial Rate : 118 BPM P-R Int : 148 ms QRS Dur : 072 ms QT Int : 334 ms P-R-T Axes : 065 026 083 degrees QTc Int : 468 ms Sinus tachycardia Nonspecific T wave abnormality Abnormal ECG When compared with ECG of 18-FEB-2023 01:48, No significant change was found Referred By: Leo Valdivia Electronically Signed By:DANO TRIPP
--- NOTE | 2023-06-05 11:07 | ED_ITS ---
HPI - General Adult General Chief complaint: ETOH/Substance Use Stated complaint: SOB, alcohol withdrawal per EMS Time Seen by Provider: 06/05/23 10:58 Source: patient Mode of arrival: ambulatory Limitations: no limitations History of Present Illness HPI narrative: 47-year-old female history of alcohol abuse presents to the ED for alcohol withdrawal and shortness of breath. Patient states she went on alcohol drinking binge due for the past 7 days and her last drink was last night 7pm. patient states she woke up this morning having tremors. patient states usually drinks 2 litres of alcohol per day. Patient states being admitted in the past for alcohol withdrawal. Patient states she feels her heart is racing. Related Data Home Medications Medication Instructions Recorded Confirmed folic acid 1 mg tablet 1 tab PO DAILY 09/30/21 06/05/23 omeprazole 20 mg capsule,delayed 1 cap PO DAILY@0630 09/30/21 06/05/23 release thiamine HCl (vitamin B1) 100 mg 1 tab PO DAILY 09/30/21 06/05/23 tablet lisinopril 40 mg tablet 40 mg PO QAM 10/15/21 06/05/23 acetaminophen 500 mg tablet 1 tab PO Q6-8H PRN fever 06/04/22 06/05/23 carvedilol 3.125 mg tablet 1 tab PO BID 06/04/22 06/05/23 chlorthalidone 25 mg tablet 1 tab PO DAILY 06/04/22 06/05/23 cholecalciferol (vitamin D3) 25 1 cap PO QAM 06/04/22 06/05/23 mcg (1,000 unit) capsule (Vitamin D3) docusate sodium 100 mg capsule 1 cap PO BID PRN Constipation 06/04/22 06/05/23 multivitamin-ferrous 1 tab PO DAILY 06/04/22 06/05/23 fumarate-folic acid 18 mg-400 mcg tablet (Certavite-Antioxidant) cyclobenzaprine 5 mg tablet 5 mg PO TID PRN Muscle Spasm 06/05/23 06/05/23 Previous Rx's Medication Instructions Recorded ACL defiance brace #1 ea 07/29/21 albuterol sulfate 90 mcg/actuation 2 puff inhalation Q4-6H PRN 09/12/21 aerosol inhaler shortness of breath or wheezing #8.5 grams magnesium oxide 400 mg (241.3 mg 400 mg PO BIDPC 30 days #60 tabs 12/01/21 magnesium) tablet lidocaine 5 % topical patch 1 patch topical DAILY PRN pain #15 08/11/22 ea Allergies Allergy/AdvReac Type Severity Reaction Status Date / Time amoxicillin [AMOXICILLIN] Allergy Intermediate rash, Verified 02/09/23 14:52 rash/itching Sulfa (Sulfonamide Allergy Intermediate rash/itchin Verified 02/09/23 14:52 Antibiotics) g sulfamethoxazole Allergy Intermediate RASH Verified 02/09/23 14:52 [From BACTRIM] trimethoprim [From BACTRIM] Allergy Intermediate RASH Verified 02/09/23 14:52 hydrocodone [Hydrocodone] Allergy Mild ITCH Verified 02/09/23 14:52 ibuprofen [From Motrin] Allergy Mild UPSET Verified 02/09/23 14:52 STOMACH latex [Latex] Allergy Mild ITCH Verified 02/09/23 14:52 Review of Systems Review of Systems: Tremors alcohol withdrawal, nausea, heart racing Yes all other systems are reviewed and are negative PMFSH Past Medical History Medical History Anxiety Anxiety and depression Breast cancer H/O ETOH abuse History of COVID-19 History of low potassium Hypertension Panic attack Uncontrolled hypertension Surgical History H/O: hysterectomy History of breast lump/mass excision History of carpal tunnel release Hx of tubal ligation Family History Family History Mother Heart disease Alzheimers disease Social History Social History Household Members: Other Housing: Apartment Do you presently have visiting nurse or other home services: No Alcohol intake: current Alcohol intake frequency: 3 or more drinks per day Alcohol type: hard liquor Patient Tobacco Use Status: Current everyday Tobacco user Tobacco use type: Cigarette Cigarettes Per Day: 10 Second Hand Smoke Exposure: Yes Advance Directives Date on File: 02/11/22 service: No Current occupational status: disabled Physical Exam ED Vital Signs: Vital Signs - 24 hr 06/05/23 11:01 06/05/23 12:02 06/05/23 15:05 Temperature 99.2 F 97.3 F Pulse Rate 120 H 117 H 131 H Respiratory Rate 18 20 18 Blood Pressure 126/87 126/82 106/89 Pulse Oximetry 97 97 Oxygen Delivery Method Room Air Room Air 06/05/23 17:58 06/05/23 20:04 Temperature 98.1 F Pulse Rate 121 H 121 H Respiratory Rate 20 16 Blood Pressure 144/91 H 139/95 H Pulse Oximetry 98 98 Oxygen Delivery Method Room Air Room Air BMI result Body Mass Index 25.5 Const General: cooperative, healthy appearing, comfortable, no acute distress, well developed, alert, awake and Physically active Orientation/consciousness: oriented to person, oriented to place, oriented to time and patient oriented x3 HENKY Head: Yes normal to inspection, Yes No palpable skull fracture present, Yes normocephalic, Yes atraumatic and No abrasion Eyes General: appearance normal, both eyes and all related structures Neck Neck: Yes normal visual inspection, Yes full ROM, Yes no lymphadenopathy, Yes no meningeal signs, Yes trachea midline, Yes supple, No anterior neck swelling and No tender Chest Chest palpation & inspection: normal inspection of the chest and normal palpation of entire chest wall Resp Effort & Inspection: normal respiratory effort and able to speak in complete sentences Auscultation: clear to auscultation bilaterally Cardio Jugular venous distension: no JVD Heart sounds: S1 normal heart sound present and S2 normal heart sound present GI Inspection: Yes normal to inspection and No abdominal wall ecchymosis Palpation (GI): Soft to palpation, not firm, nontender, no guarding and not rigid General: No CVA tenderness and Yes no CVA tenderness Back/Spine/Pelvis Back: no CVA tenderness, No CVA tenderness and No back tenderness Skin General skin exam: no rashes or lesions noted, elasticity normal and turgor normal Neuro Other: Positive for tremors. General: oriented to person, oriented to place, oriented to time, patient oriented x3, gait normal, tone normal, moves all extremities, Normal light touch and pain sensation, no meningeal signs, no focal motor deficits, CN's II-XI intact bilaterally and normal sensation to monofilament Extrem General: Yes normal to inspection and Yes full ROM Psych Appearance: grossly normal, well kempt and not disheveled Course Reevaluation(s) Reevaluation #1: Patient's CIWA despite p.o. and IV Ativan, phenobarb protocol initiated, patient to be admitted to the hospitalist. Time: 20:31 Medications Administered Generic Name Dose Route Start Last Admin Trade Name Freq PRN Reason Stop Dose Admin Acetaminophen 650 mg 06/05/23 20:31 06/07/23 08:27 Acetaminophen 325 Mg Tablet PO 650 mg Q6H PRN Administration Pain, Mild (Pain Scale 1-3) Carvedilol 3.125 mg 06/05/23 21:00 06/07/23 08:26 Carvedilol 3.125 Mg Tablet PO 3.125 mg BID CLAUDIA Administration Protocol Enoxaparin Sodium 40 mg 06/05/23 21:00 06/06/23 20:51 Enoxaparin Sodium 40 Mg/0.4 Ml Syringe SUBCUT 40 mg Q24H CLAUDIA Administration Folic Acid 1 mg 06/06/23 09:00 06/07/23 08:25 Folic Acid 1 Mg Tablet PO 1 mg DAILY CLAUDIA Administration Lisinopril 40 mg 06/07/23 13:35 06/07/23 14:55 Lisinopril 40 Mg Tablet PO 40 mg DAILY CLAUDIA Administration Protocol Magnesium Oxide 400 mg 06/06/23 08:30 06/07/23 17:29 Magnesium Oxide 400 Mg Tablet PO 400 mg BIDPC CLAUDIA Administration Meclizine HCl 25 mg 06/07/23 15:23 06/07/23 17:33 Meclizine Hcl 25 Mg Tablet PO 25 mg Q8H PRN Administration dizziness Melatonin 6 mg 06/05/23 20:31 06/06/23 20:51 Melatonin 3 Mg Tablet PO 6 mg BEDTIME PRN Administration Insomnia Multivitamins/Vitamin C 1 tab 06/06/23 09:00 06/07/23 08:25 Multivitamin Tablet PO 1 tab DAILY CLAUDIA Administration Omeprazole 20 mg 06/06/23 06:30 06/07/23 06:42 Omeprazole 20 Mg Capsule.Dr PO 20 mg DAILY@0630 CLAUDIA Administration Ondansetron HCl 4 mg 06/05/23 20:31 06/07/23 08:22 Ondansetron Hcl 4 Mg/2 Ml Vial IVPUSH 4 mg Q8H PRN Administration Nausea and Vomiting Phenobarbital 45 mg 06/06/23 09:00 06/07/23 08:25 Phenobarbital 15 Mg Tablet PO 06/07/23 21:01 45 mg BID CLAUDIA Administration Protocol Sodium Chloride 3 ml 06/06/23 00:00 06/07/23 17:30 0.9 % Sodium Chloride Flush 3 Ml Syringe IVFLUSH 3 ml QSHIFT CLAUDIA Administration Thiamine HCl 100 mg 06/06/23 09:00 06/07/23 08:25 Thiamine Hcl 100 Mg Tablet PO 100 mg DAILY CLAUDIA Administration Vitamin D 25 mcg 06/06/23 09:00 06/07/23 08:25 Cholecalciferol (Vitamin D3) 25 Mcg Tablet PO 25 mcg DAILY CLAUDIA Administration Discontinued Medications Generic Name Dose Route Start Last Admin Trade Name Lynne PRN Reason Stop Dose Admin Sodium Chloride 1,000 mls @ 999 mls/hr 06/05/23 11:07 06/05/23 13:13 Ns IV 06/05/23 12:07 Infused .Q1H1M STA Infusion Sodium Chloride 1,000 mls @ 999 mls/hr 06/05/23 11:09 06/05/23 13:13 Ns IV 06/05/23 12:09 Infused .Q1H1M STA Infusion Sodium Chloride 1,000 mls @ 999 mls/hr 06/05/23 15:49 06/05/23 17:52 Ns IV 06/05/23 16:49 Infused .Q1H1M STA Infusion Thiamine HCl 100 mg/ Sodium 101 mls @ 202 mls/hr 06/05/23 20:31 06/05/23 22:53 Chloride IV 06/05/23 21:00 Infused ONCE ONE Infusion Lorazepam 2 mg 06/05/23 11:09 06/05/23 12:01 Lorazepam 2 Mg/Ml Vial IVPUSH 06/05/23 11:10 2 mg ONCE ONE Administration Lorazepam 2 mg 06/05/23 13:13 06/05/23 13:27 Lorazepam 2 Mg/Ml Vial IVPUSH 06/05/23 13:14 2 mg ONCE ONE Administration Lorazepam 2 mg 06/05/23 17:52 06/05/23 17:58 Lorazepam 1 Mg Tablet PO 06/05/23 17:53 2 mg ONCE ONE Administration Ondansetron HCl 4 mg 06/05/23 11:51 06/05/23 11:58 Ondansetron Hcl 4 Mg/2 Ml Vial IVPUSH 06/05/23 11:52 4 mg ONCE ONE Administration Phenobarbital Sodium 295.1 mg 06/05/23 20:30 06/05/23 21:11 Phenobarbital Sodium 130 Mg/Ml Im Once IM 06/05/23 20:31 295.1 mg ONCE ONE Administration Protocol Phenobarbital Sodium 221 mg 06/05/23 23:30 06/06/23 02:45 Phenobarbital Sodium 130 Mg/Ml Vial Im Q3hx2 IM 06/06/23 02:31 221 mg Q3H CLAUDIA Administration Protocol Medical Decision Making Medical Decision Making [facility] Narrative: 47-year-old female history of alcohol abuse presents to ED for tremors, nausea, or palpitations after stopping drinking 19:00 last night. Positive for tremors on exam tachycardia. Will do EKG and labs. Will give Ativan and fluids. 11:32am 3:50pm: Labs show BENIGNO with mild acute acidosis. 3 L of fluid ordered. To order repeat chemistry. Patient sleeping comfortably in bed no longer in alcohol withdrawal. Patient is on one-to-one due to SI statement. Tremors resolved. 5:35: Repeat labs ordered. Case signed out AGNIESZKA Casper. Patient awaiting medical clearance and care team consulted. Differential Diagnosis Differential Diagnoses: The differential diagnosis associated with the presentation includes (Alcohol withdrawal, metabolic ketoacidosis, suicidal homicidal, Hypomagnesemia, delivering tremors, seizure) Admission/Observation Consideration of admission/observation: Escalation of care including admission/observation considered Lab Data [facility] Lab Attestation statement: I reviewed the patient's lab results. 06/05/23 11:49 06/05/23 11:49 Labs: Lab Results 06/05/23 06/05/23 06/05/23 Range/Units 11:49 11:49 11:49 WBC 10.3 (4.8-10.8) X10*3/uL RBC 3.91 L (4.20-5.50) X10*6/uL Hgb 12.3 (12.0-16.0) g/dl Hct 36.9 L (37.0-47.0) % MCV 94.4 (80.0-98.0) fL MCH 31.5 (27.0-33.0) pg MCHC 33.3 (31.0-35.0) g/dl RDW 13.8 (11.0-16.0) % Plt Count 323 (160-400) X10*3/uL MPV 9.7 (9.4-12.3) fL Immature Gran % (Auto) 0.3 (0.0-0.4) % Neut % (Auto) 69.9 (45-73) % Lymph % (Auto) 21.1 (20-40) % [place] % (Auto) 6.5 (2-11) % Eos % (Auto) 1.0 (0-4) % Baso % (Auto) 1.2 (0-2) % Lymph # (Auto) 2.2 (1.2-4.9) X10*3/uL [place] # (Auto) 0.7 (0.1-1.2) X10*3/uL Eos # (Auto) 0.1 (0.0-0.4) X10*3/uL Baso # (Auto) 0.1 (0.0-0.2) X10*3/uL Abs Immat Gran (auto) 0.03 (0.00-0.03) X10*3/uL Absolute Neuts (auto) 7.2 (2.0-8.3) x10*3/uL Absolute Nucleated RBC 0.000 (0.0-0.012) X10*3/uL Nucleated RBC % (auto) 0.0 (0.0-0.2) /100WBC PT 11.2 (11.1-13.3) SEC INR 0.9 (0.9-1.1) APTT 33.2 (26.0-36.4) SEC Sodium 140 (135-145) mmol/L Potassium 4.4 (3.3-5.1) mmol/L Chloride 102 (96-108) mmol/L Carbon Dioxide 13 L (22-29) mmol/L Anion Gap 29 H (12-20) BUN 26 H (9-16) mg/dL Creatinine 1.67 H (0.5-1.4) mg/dL Estim Creat Clear Calc 42.8 Estimated GFR 33 Random Glucose 92 (60-115) mg/dL Calcium 9.4 (8.4-10.2) mg/dL Magnesium 1.8 (1.6-2.6) mg/dL Total Bilirubin 1.1 H (0.0-1.0) mg/dL AST 95 H (5-31) U/L ALT 84 H (0-31) U/L Alkaline Phosphatase 116 (39-117) U/L Troponin I High Sens (<3.5-17.0) ng/L B-Natriuretic Peptide (<100) pg/mL Total Protein 8.4 H (6.5-8.0) g/dL Albumin 4.5 (3.5-5.0) g/dL Lipase (8-78) U/L Urine Color Urine Appearance Urine pH (5.0-9.0) Ur Specific [place] (1.005-1.025) Urine Protein (Neg-Trace) mg/dL Urine Glucose (UA) (Negative) mg/dL Urine Ketones (Negative) mg/dL Urine Blood (Negative) Urine Nitrite (Negative) Ur Leukocyte Esterase (Negative) Urine Opiates Screen (Not Detect) Urine Fentanyl Screen (Not Detect) Ur Barbiturates Screen (Not Detect) Ur Phencyclidine Scrn (Not Detect) Ur Amphetamines Screen (Not Detect) U Benzodiazepines Scrn (Not Detect) Urine Cocaine Screen (Not Detect) U Marijuana (THC) Screen (Not Detect) Ethyl Alcohol mg/dL 06/05/23 06/05/23 06/05/23 Range/Units 11:49 11:49 11:49 WBC (4.8-10.8) X10*3/uL RBC (4.20-5.50) X10*6/uL Hgb (12.0-16.0) g/dl Hct (37.0-47.0) % MCV (80.0-98.0) fL MCH (27.0-33.0) pg MCHC (31.0-35.0) g/dl RDW (11.0-16.0) % Plt Count (160-400) X10*3/uL MPV (9.4-12.3) fL Immature Gran % (Auto) (0.0-0.4) % Neut % (Auto) (45-73) % Lymph % (Auto) (20-40) % [place] % (Auto) (2-11) % Eos % (Auto) (0-4) % Baso % (Auto) (0-2) % Lymph # (Auto) (1.2-4.9) X10*3/uL [place] # (Auto) (0.1-1.2) X10*3/uL Eos # (Auto) (0.0-0.4) X10*3/uL Baso # (Auto) (0.0-0.2) X10*3/uL Abs Immat Gran (auto) (0.00-0.03) X10*3/uL Absolute Neuts (auto) (2.0-8.3) x10*3/uL Absolute Nucleated RBC (0.0-0.012) X10*3/uL Nucleated RBC % (auto) (0.0-0.2) /100WBC PT (11.1-13.3) SEC INR (0.9-1.1) APTT (26.0-36.4) SEC Sodium (135-145) mmol/L Potassium (3.3-5.1) mmol/L Chloride (96-108) mmol/L Carbon Dioxide (22-29) mmol/L Anion Gap (12-20) BUN (9-16) mg/dL Creatinine (0.5-1.4) mg/dL Estim Creat Clear Calc Estimated GFR Random Glucose (60-115) mg/dL Calcium (8.4-10.2) mg/dL Magnesium (1.6-2.6) mg/dL Total Bilirubin (0.0-1.0) mg/dL AST (5-31) U/L ALT (0-31) U/L Alkaline Phosphatase (39-117) U/L Troponin I High Sens 9.2 (<3.5-17.0) ng/L B-Natriuretic Peptide < 10 (<100) pg/mL Total Protein (6.5-8.0) g/dL Albumin (3.5-5.0) g/dL Lipase 71 (8-78) U/L Urine Color Urine Appearance Urine pH (5.0-9.0) Ur Specific [place] (1.005-1.025) Urine Protein (Neg-Trace) mg/dL Urine Glucose (UA) (Negative) mg/dL Urine Ketones (Negative) mg/dL Urine Blood (Negative) Urine Nitrite (Negative) Ur Leukocyte Esterase (Negative) Urine Opiates Screen (Not Detect) Urine Fentanyl Screen (Not Detect) Ur Barbiturates Screen (Not Detect) Ur Phencyclidine Scrn (Not Detect) Ur Amphetamines Screen (Not Detect) U Benzodiazepines Scrn (Not Detect) Urine Cocaine Screen (Not Detect) U Marijuana (THC) Screen (Not Detect) Ethyl Alcohol mg/dL 06/05/23 06/05/23 06/05/23 Range/Units 17:24 17:24 17:48 WBC (4.8-10.8) X10*3/uL RBC (4.20-5.50) X10*6/uL Hgb (12.0-16.0) g/dl Hct (37.0-47.0) % MCV (80.0-98.0) fL MCH (27.0-33.0) pg MCHC (31.0-35.0) g/dl RDW (11.0-16.0) % Plt Count (160-400) X10*3/uL MPV (9.4-12.3) fL Immature Gran % (Auto) (0.0-0.4) % Neut % (Auto) (45-73) % Lymph % (Auto) (20-40) % [place] % (Auto) (2-11) % Eos % (Auto) (0-4) % Baso % (Auto) (0-2) % Lymph # (Auto) (1.2-4.9) X10*3/uL [place] # (Auto) (0.1-1.2) X10*3/uL Eos # (Auto) (0.0-0.4) X10*3/uL Baso # (Auto) (0.0-0.2) X10*3/uL Abs Immat Gran (auto) (0.00-0.03) X10*3/uL Absolute Neuts (auto) (2.0-8.3) x10*3/uL Absolute Nucleated RBC (0.0-0.012) X10*3/uL Nucleated RBC % (auto) (0.0-0.2) /100WBC PT (11.1-13.3) SEC INR (0.9-1.1) APTT (26.0-36.4) SEC Sodium 139 (135-145) mmol/L Potassium 4.0 (3.3-5.1) mmol/L Chloride 108 (96-108) mmol/L Carbon Dioxide 19 L (22-29) mmol/L Anion Gap 16 (12-20) BUN 25 H (9-16) mg/dL Creatinine 1.41 H (0.5-1.4) mg/dL Estim Creat Clear Calc 50.7 Estimated GFR 40 Random Glucose 130 H (60-115) mg/dL Calcium 7.9 L D (8.4-10.2) mg/dL Magnesium (1.6-2.6) mg/dL Total Bilirubin 1.0 (0.0-1.0) mg/dL AST 68 H (5-31) U/L ALT 64 H (0-31) U/L Alkaline Phosphatase 94 (39-117) U/L Troponin I High Sens (<3.5-17.0) ng/L B-Natriuretic Peptide (<100) pg/mL Total Protein 6.7 (6.5-8.0) g/dL Albumin 3.7 (3.5-5.0) g/dL Lipase (8-78) U/L Urine Color Yellow Urine Appearance Clear Urine pH 5.5 (5.0-9.0) Ur Specific [place] 1.020 (1.005-1.025) Urine Protein Trace (Neg-Trace) mg/dL Urine Glucose (UA) Negative (Negative) mg/dL Urine Ketones 15 (Negative) mg/dL Urine Blood Negative (Negative) Urine Nitrite Negative (Negative) Ur Leukocyte Esterase Negative (Negative) Urine Opiates Screen Not Detected (Not Detect) Urine Fentanyl Screen Not Detected (Not Detect) Ur Barbiturates Screen Not Detected (Not Detect) Ur Phencyclidine Scrn Not Detected (Not Detect) Ur Amphetamines Screen Not Detected (Not Detect) U Benzodiazepines Scrn Not Detected (Not Detect) Urine Cocaine Screen Not Detected (Not Detect) U Marijuana (THC) Screen Not Detected (Not Detect) Ethyl Alcohol mg/dL 06/05/23 06/05/23 Range/Units 17:48 17:48 WBC (4.8-10.8) X10*3/uL RBC (4.20-5.50) X10*6/uL Hgb (12.0-16.0) g/dl Hct (37.0-47.0) % MCV (80.0-98.0) fL MCH (27.0-33.0) pg MCHC (31.0-35.0) g/dl RDW (11.0-16.0) % Plt Count (160-400) X10*3/uL MPV (9.4-12.3) fL Immature Gran % (Auto) (0.0-0.4) % Neut % (Auto) (45-73) % Lymph % (Auto) (20-40) % [place] % (Auto) (2-11) % Eos % (Auto) (0-4) % Baso % (Auto) (0-2) % Lymph # (Auto) (1.2-4.9) X10*3/uL [place] # (Auto) (0.1-1.2) X10*3/uL Eos # (Auto) (0.0-0.4) X10*3/uL Baso # (Auto) (0.0-0.2) X10*3/uL Abs Immat Gran (auto) (0.00-0.03) X10*3/uL Absolute Neuts (auto) (2.0-8.3) x10*3/uL Absolute Nucleated RBC (0.0-0.012) X10*3/uL Nucleated RBC % (auto) (0.0-0.2) /100WBC PT (11.1-13.3) SEC INR (0.9-1.1) APTT (26.0-36.4) SEC Sodium (135-145) mmol/L Potassium (3.3-5.1) mmol/L Chloride (96-108) mmol/L Carbon Dioxide (22-29) mmol/L Anion Gap (12-20) BUN (9-16) mg/dL Creatinine (0.5-1.4) mg/dL Estim Creat Clear Calc Estimated GFR Random Glucose (60-115) mg/dL Calcium (8.4-10.2) mg/dL Magnesium (1.6-2.6) mg/dL Total Bilirubin (0.0-1.0) mg/dL AST (5-31) U/L ALT (0-31) U/L Alkaline Phosphatase (39-117) U/L Troponin I High Sens 12.5 (<3.5-17.0) ng/L B-Natriuretic Peptide (<100) pg/mL Total Protein (6.5-8.0) g/dL Albumin (3.5-5.0) g/dL Lipase (8-78) U/L Urine Color Urine Appearance Urine pH (5.0-9.0) Ur Specific [place] (1.005-1.025) Urine Protein (Neg-Trace) mg/dL Urine Glucose (UA) (Negative) mg/dL Urine Ketones (Negative) mg/dL Urine Blood (Negative) Urine Nitrite (Negative) Ur Leukocyte Esterase (Negative) Urine Opiates Screen (Not Detect) Urine Fentanyl Screen (Not Detect) Ur Barbiturates Screen (Not Detect) Ur Phencyclidine Scrn (Not Detect) Ur Amphetamines Screen (Not Detect) U Benzodiazepines Scrn (Not Detect) Urine Cocaine Screen (Not Detect) U Marijuana (THC) Screen (Not Detect) Ethyl Alcohol < 10 mg/dL Independent Interpretation I performed an independent interpretation of an: EKG (Sinus tachycardia. Ventricular rate 118. NH interval 148. QRS 72. QTC 468. Negative STEMI) and Plain X-Ray Radiology Impression Discussion of test interpretation with radiology: I have reviewed the radiologis t's reading. Independent Historian Clinical information obtained from an independent historian. History obtained from or confirmed by: EMS External Record Review External record reviewed: Other (Prior ED visit) Critical Care Time Critical Care Time Critical Care Time: No Discharge Plan Discharge Clinical Impression: Alcohol withdrawal, Depression, BENIGNO (acute kidney injury), Alcoholic ketoacidosis Patient Disposition: Admitted As Inpatient Interventions: Admission Worksheet (ED) Last Done: 06/05/23 23:03 Discharge Date/Time: 06/05/23 23:10
--- OUTSIDE RECORDS SUMMARY | 2023-06-05 11:29 | XMS_ITS | Continuity of Care Document ---
Author Name Unknown Organization [facility] Address [address] [place] [id number]- Care Team Providers Care Investigations Manager Name Role Phone Shereen Latham MD Primary Care Physician Encounter [facility] [place] Date(s): 01/10/23 - 05/10/23 [facility] [address] [place] [id number]- Attending Physician: Yvonne Aguayo MD Admitting Physician: Yvonne Aguayo MD Referring Physician: Shereen Latham MD Allergies, Adverse Reactions, Alerts Substance Reaction Severity Status sulfa drugs Active Motrin gives knots in stoma ch dizzy Persistent Severe Active Amoxil itchy, red skin Persistent Severe Active Vicodin itching and redness of skin rash Persistent Severe Active Latex itching Persistent Severe Active Medications folic acid 1 mg oral tablet 1 mg, 1, tablet, By Mouth, Daily, # 30 tablet, Refills 0, Maintenance, 01/22/22 16:10:00 EDT, Partial fill upon patient request if the prescription is for a schedule II opioid drug. Start Date: 01/22/22 Status: Ordered lisinopril 20 mg oral tablet 40 mg, By Mouth, Daily, Refills 0, Maintenance, 02/24/19 12:04:03 EDT Start Date: 02/24/19 Status: Ordered loratadine 10 mg oral capsule 1 capsule = 10 mg, By Mouth, Daily, # 10 capsule, 0 Refills, Maintenance, 01/22/22 16:09:00 EDT, Capsule, Partial fill upon patient request if the prescription is for a schedule II opioid drug. Start Date: 01/22/22 Status: Ordered magnesium oxide 400 mg oral tablet 1 tablet = 400 mg, By Mouth, Daily, 0 Refills, Maintenance, 01/22/22 16:11:00 EDT, Partial fill upon patient request if the prescription is for a schedule II opioid drug. Start Date: 01/22/22 Status: Ordered Prilosec 20 mg oral enteric coated capsule 1 capsule = 20 mg, By Mouth, Daily, # 30 capsule, 0 Refills, Maintenance, EC Capsule Start Date: 11/13/11 Status: Ordered Problem List Condition Confirmation Course Effective Dates Status Health St atus Informant Alcohol abuse Confirmed Active Anxiety Confirmed Active Cocaine use Confirmed Active Depression Confirmed Active Chronic GERD Confirmed Active Hypertension Confirmed Active Post traumatic stress disorder (PTSD) Confirmed Active Social History Social History Type Response Tobacco Other: 1-2 cigarette s/day. Sex Patient Care team information Care Team Personnel Name: Shereen Latham MD Position: [facility] Outreach Member Role: PCP Address: Address: [address] [place] [address] [place] [id number]- Care Team Related Persons Name: TED NIELSON Address: [address] [place] [address] Name: RAMÓN NIELSON Address: [address] [place] [address] Name: MARITO MEZA Address: [place] [address] [place] [address]
--- OUTSIDE RECORDS SUMMARY | 2023-06-05 11:29 | XMS_ITS | Continuity of Care Document ---
Author Name Unknown Organization [facility] Address [address] [place] [id number]- Care Team Providers Care Footwear Machinery Instructor Name Role Phone Shereen Latham MD Primary Care Physician Encounter [facility] [place] Date(s): 04/10/23 - 05/10/23 [facility] [address] [place] [id number]- Attending Physician: Ema Jackson Admitting Physician: AdmtrEma Referring Physician: AdmtrEma Allergies, Adverse Reactions, Alerts [...] Response Tobacco Other: 1-2 cigarette s/day. Sex Laboratory * Event Display: Non Lab Results Authored Date: * Event Display: Non Lab Results Authored Date: Cardiology * Event Display: Cardiology Office Note, Non- Authored Date: Patient Care team information Care Team Personnel Name: Noa NOLASCO , Shereen Diallo Position: [facility] Outreach Member Role: PCP Address: Address: [address] [place] [address] [place] [address]- Care Team Related Persons Name: TED NIELSON Address: [address] [place] [address] Name: RAMÓN NIELSON Address: [address] [place] [address] Name: MARITO MEZA Address: [address] [place] [address]
--- NOTE | 2023-06-05 11:30 | PC.NURSE ---
Addendum entered by Jamal Whitt 06/05/23 12:18: no concerns/questions at this time; pt aware of plan of care. call cavanaugh within reach. Original Note: pt arrived via ems [id number]. [facility]; sob/n/v/tremors/VIRAMONTES noted. pt states she has been drinking approx. 2L viri alcohol daily; last drink last night approx 2100. pt reports to this RN feeling depressed and thoughts of SI; pt states these thoughts have been present for a while however she hasn't acted on it until 2 days ago she was going to jump off her balcony. pt states she has no plan currently but active thoughts about it. security to bedside for change room attendant; sitter at bedside; belongings locked by security. ciwa score 15. iv established, labs drawn; pt appears anxious, pt medicated per MAR. vss; sinus tachy on monitor 120 bpm, respirations even and unlabored, sats 98% RA. no perspiration noted; moderate tremors; reports slight VIRAMONTES/pressure. pt denies HI. pt denies auditory/visual hallucinations. no
[2023-06-05 11:55] LABS: MANUAL DIFF FLAG NO
[2023-06-05 11:57] LABS: Basophils Absolute Auto 0.1 X10*3/uL (0.0-0.2); Basophils Percent Auto 1.2 % (0-2); Eosinophils Absolute Auto 0.1 X10*3/uL (0.0-0.4); Hematocrit 36.9 % (37.0-47.0); Hemoglobin 12.3 g/dl (12.0-16.0); Imm Gran Abs Auto 0.03 X10*3/uL (0.00-0.03); Imm Gran Pct Auto 0.3 % (0.0-0.4); Lymphocytes Absolute Auto 2.2 X10*3/uL (1.2-4.9); Lymphocytes Percent Auto 21.1 % (20-40); Mean Corpuscular HGB Conc 33.3 g/dl (31.0-35.0); Mean Corpuscular Hemoglobin 31.5 pg (27.0-33.0); Mean Corpuscular Volume 94.4 fL (80.0-98.0); Mean Platelet Volume 9.7 fL (9.4-12.3); Monocytes Absolute Auto 0.7 X10*3/uL (0.1-1.2); Monocytes Percent Auto 6.5 % (2-11); Neutrophils Absolute Auto 7.2 x10*3/uL (2.0-8.3); Neutrophils Percent Auto 69.9 % (45-73); Platelet Count 323 X10*3/uL (160-400); Red Blood Count 3.91 X10*6/uL (4.20-5.50); Red Cell Distribution Width 13.8 % (11.0-16.0); White Blood Count 10.3 X10*3/uL (4.8-10.8)
[2023-06-05] MEDS: ondansetron HCL 4 MG/2 ML VIAL IVPUSH (11:58)
[2023-06-05] MEDS: 0.9 % Sodium Chloride 1,000 ML 999 ML IV ×3 (11:59→15:56)
[2023-06-05] MEDS: LORazepam 2 MG/ML VIAL IVPUSH ×2 (12:01→13:27)
--- NOTE | 2023-06-05 12:03 | PC.NURSE ---
Pt medicated as charted. sinus tach on tele. Endorses +SI with attempt 2 days ago, pt observer at bedside for safty. belongings in locker 12 by security. Upper ext tremors noted, nausea, headache and diarrhea.
[2023-06-05 12:04] LABS: INTERNATIONAL NORM RATIO 0.9 (0.9-1.1); Prothrombin Time 11.2 SEC (11.1-13.3)
[2023-06-05 12:06] LABS: Partial Thromboplastin Time 33.2 SEC (26.0-36.4)
[2023-06-05 12:18] LABS: B Type Natriuretic Peptide < 10 pg/mL (<100)
[2023-06-05 13:10] LABS: Lipase 71 U/L (8-78); Troponin-I High Sensitivity 9.2 ng/L (<3.5-17.0)
[2023-06-05 13:12] LABS: Creatinine Clr Calc Pharmacy 42.8; Estimated Glomerular Filt Rate 33
[2023-06-05 13:18] LABS: Alanine Aminotransferase 84 U/L (0-31); Albumin Level 4.5 g/dL (3.5-5.0); Alkaline Phosphatase 116 U/L (39-117); Anion Gap 29 (12-20); Aspartate Amino Transferase 95 U/L (5-31); Bilirubin Total 1.1 mg/dL (0.0-1.0); Blood Urea Nitrogen 26 mg/dL (9-16); Calcium 9.4 mg/dL (8.4-10.2); Carbon Dioxide 13 mmol/L (22-29); Chloride 102 mmol/L (96-108); Glucose Random 92 mg/dL (60-115); Magnesium 1.8 mg/dL (1.6-2.6); Potassium 4.4 mmol/L (3.3-5.1); Sodium 140 mmol/L (135-145); Total Protein 8.4 g/dL (6.5-8.0)
[2023-06-05 17:38] LABS: Appearance Urine Clear; Color Urine Yellow; Glucose Urine UA Negative (Negative); Leukocyte Esterase Urine Negative (Negative); Nitrite Urine Negative (Negative); PH 5.5 (5.0-9.0); Urine Blood Negative (Negative); Urine Ketones 15 mg/dL (Negative); Urine Protein Trace mg/dL (Neg-Trace)
[2023-06-05 17:54] LABS: Amphetamine Screen Urine Not Detected (Not Detect); Barbiturates, Urine Not Detected (Not Detect); Benzodiazepines Screen Urine Not Detected (Not Detect); Cannabinoid Screen Urine Not Detected (Not Detect); Cocaine Screen Urine Not Detected (Not Detect); Fentanyl, urine Not Detected (Not Detect); Opiate Screen Urine Not Detected (Not Detect); Phencyclidine Screen Urine Not Detected (Not Detect)
[2023-06-05] MEDS: LORazepam 1 MG TABLET 2 MG PO (17:58)
[2023-06-05 18:11] LABS: Ethanol < 10 mg/dL
[2023-06-05 18:18] LABS: Alanine Aminotransferase 64 U/L (0-31); Albumin Level 3.7 g/dL (3.5-5.0); Alkaline Phosphatase 94 U/L (39-117); Anion Gap 16 (12-20); Aspartate Amino Transferase 68 U/L (5-31); Blood Urea Nitrogen 25 mg/dL (9-16); Calcium 7.9 mg/dL (8.4-10.2); Carbon Dioxide 19 mmol/L (22-29); Chloride 108 mmol/L (96-108); Creatinine Clr Calc Pharmacy 50.7; Estimated Glomerular Filt Rate 40; Glucose Random 130 mg/dL (60-115); Sodium 139 mmol/L (135-145); Total Protein 6.7 g/dL (6.5-8.0)
[2023-06-05 18:20] LABS: Troponin-I High Sensitivity 12.5 ng/L (<3.5-17.0)
--- NOTE | 2023-06-05 18:52 | PHA.MEDREC ---
Pharmacy Consult ? Medication Reconciliation Pharmacy has completed the medication reconciliation. Patient confirmed medications, was slightly confused on some medications. Went based on claim history. Beatrice Kwong, PharmD
--- NOTE | 2023-06-05 20:33 | P.HPHOSP_ITS ---
History of Present Illness Date of Service: 06/05/23 Chief Complaint: Alcohol withdrawal This is a 47-year-old female with pertinent history of alcohol use disorder, essential hypertension, gastroesophageal reflux disease who presents to the emergency department for concerns of alcohol withdrawal. Patient states she went on an alcohol binge for the past 7 days. Her last drink was last night. Since then, patient has been feeling anxious and has been having tremors. Also has been having nausea and sweating. Does have a history of alcohol withdrawal in the past. Patient states she is motivated to quit and wants information for detox. She denies fever, chills, chest discomfort, shortness of breath, abdo alan pain, changes in urinary or bowel habits. In the emergency department, CIWA found to be elevated and patient was initiated on phenobarb protocol. Patient found to have BENIGNO Review of Systems Constitutional: Constitutional: Reports fatigue, Reports lethargy and Reports malaise Cardiovascular: Cardiovascular: Reports no additional cardiovascular complaints Respiratory: Respiratory: Reports no additional respiratory complaints Gastrointestinal: Gastrointestinal: Reports no additional gastrointestinal complaints Genitourinary: Genitourinary: Reports no additional female genitourinary complaints Neurologic: Reports tremor(s) Endocrine: Endocrine: Reports fatigue [facility] Medical History Anxiety Anxiety and depression Breast cancer H/O ETOH abuse History of COVID-19 History of low potassium Hypertension Panic attack Uncontrolled hypertension Family History Mother Heart disease Alzheimers disease Surgical History H/O: hysterectomy History of breast lump/mass excision History of carpal tunnel release Hx of tubal ligation Social History Household Members: None Housing: Apartment Do you presently have visiting nurse or other home services: Yes (field talent qualification specialist 1 hour per day) Alcohol intake: current Alcohol intake frequency: 3 or more drinks per day Alcohol type: hard liquor Patient Tobacco Use Status: Current someday Tobacco user Tobacco use type: Cigarette Cigarettes Per Day: 10 Smoked in Last 30 Days: No Second Hand Smoke Exposure: Yes Use of substances other than those prescribed or required for medical reasons: No Advance Directives: Yes Advance Directives on File: Yes Advance Directives Date on File: 02/11/22 service: No Current occupational status: disabled Meds Allergies Allergy/AdvReac Type Severity Reaction Status Date / Time amoxicillin [AMOXICILLIN] Allergy Intermediate rash, Verified 02/09/23 14:52 rash/itching Sulfa (Sulfonamide Allergy Intermediate rash/itchin Verified 02/09/23 14:52 Antibiotics) g sulfamethoxazole Allergy Intermediate RASH Verified 02/09/23 14:52 [From BACTRIM] trimethoprim [From BACTRIM] Allergy Intermediate RASH Verified 02/09/23 14:52 hydrocodone [Hydrocodone] Allergy Mild ITCH Verified 02/09/23 14:52 ibuprofen [From Motrin] Allergy Mild UPSET Verified 02/09/23 14:52 STOMACH latex [Latex] Allergy Mild ITCH Verified 02/09/23 14:52 Active Medications: Current Medications Pharmacy Consult (Consult Rx Perform Med Rec) 1 each MISCELLANE ONCE PRN PRN Reason: Consult order Pharmacy Consult (Consult Rx Etoh Phenob Im/Po) 1 each MISCELLANE ONCE PRN; Protocol PRN Reason: Consult order Phenobarbital (Phenobarbital 15 Mg Tablet) 45 mg PO BID CLAUDIA; Protocol Stop: 06/07/23 21:01 Phenobarbital (Phenobarbital 15 Mg Tablet) 15 mg PO BID CLAUDIA; Protocol Stop: 06/09/23 21:01 Phenobarbital (Phenobarbital 15 Mg Tablet) 15 mg PO DAILY [facility]; Protocol Stop: 06/11/23 09:01 Phenobarbital Sodium (Phenobarbital Sodium 130 Mg/Ml Vial Im Q3hx2) 221 mg IM Q3H CLAUDIA; Protocol Stop: 06/06/23 02:31 Home Medications Medication Instructions Recorded Confirmed Last Taken Type folic acid 1 mg tablet 1 tab PO DAILY 09/30/21 06/05/23 06/04/23 History omeprazole 20 mg capsule,delayed 1 cap PO DAILY@0630 09/30/21 06/05/23 06/04/23 History release thiamine HCl (vitamin B1) 100 mg 1 tab PO DAILY 09/30/21 06/05/23 06/04/23 History tablet lisinopril 40 mg tablet 40 mg PO QAM 10/15/21 06/05/23 06/04/23 History acetaminophen 500 mg tablet 1 tab PO Q6-8H PRN fever 06/04/22 06/05/2306/04/23 History carvedilol 3.125 mg tablet 1 tab PO BID 06/04/22 06/05/23 06/04/23 History chlorthalidone 25 mg tablet 1 tab PO DAILY 06/04/22 06/05/23 06/04/23 History cholecalciferol (vitamin D3) 25 1 cap PO QAM 06/04/22 06/05/23 06/04/23 History mcg (1,000 unit) capsule (Vitamin D3) docusate sodium 100 mg capsule 1 cap PO BID PRN Constipation 06/04/22 06/05/23 06/04/23 History multivitamin-ferrous 1 tab PO DAILY 06/04/22 06/05/23 06/04/23 History fumarate-folic acid 18 mg-400 mcg tablet (Certavite-Antioxidant) cyclobenzaprine 5 mg tablet 5 mg PO TID 06/05/23 06/05/23 06/04/23 History Physical Exam Vital Signs and Narrative: Vital Signs: Last Vital Signs Temp 98.1 F 06/05/23 20:04 Pulse 121 H 06/05/23 20:04 Resp 16 06/05/23 20:04 BP 139/95 H 06/05/23 20:04 Pulse Ox 98 06/05/23 20:04 O2 Del Method Room Air 06/05/23 20:04 BMI result Body Mass Index 25.5 Middle-aged female lying in bed in no distress Neck supple, no JVD Tachycardic with regular rhythm, S1-S2 heard Regular breath sounds bilaterally, no wheezing or crackles appreciated Abdomen soft nontender, no guarding, no rigidity Patient is awake, alert and oriented to self, place, time and person ; no focal motor deficit Psych: Anxious No pedal edema Results Labs 06/05/23 11:49 06/05/23 17:48 Labs: Laboratory Results - last 24 hr 06/05/23 06/05/23 06/05/23 11:49 11:49 11:49 MCV 94.4 MCH 31.5 MCHC 33.3 RDW 13.8 Plt Count 323 MPV 9.7 Immature Gran % (Auto) 0.3 Neut % (Auto) 69.9 Lymph % (Auto) 21.1 Patrick % (Auto) 6.5 Eos % (Auto) 1.0 Baso % (Auto) 1.2 Lymph # (Auto) 2.2 Patrick # (Auto) 0.7 Eos # (Auto) 0.1 Baso # (Auto) 0.1 Abs Immat Gran (auto) 0.03 Absolute Neuts (auto) 7.2 Absolute Nucleated RBC 0.000 Nucleated RBC % (auto) 0.0 PT 11.2 INR 0.9 APTT 33.2 Anion Gap 29 H Estim Creat Clear Calc 42.8 Estimated GFR 33 Random Glucose 92 Calcium 9.4 Magnesium 1.8 Total Bilirubin 1.1 H AST 95 H ALT 84 H Alkaline Phosphatase 116 B-Natriuretic Peptide Total Protein 8.4 H Albumin 4.5 Lipase Urine Color Urine Appearance Urine pH Ur Specific [place] Urine Protein Urine Glucose (UA) Urine Ketones Urine Blood Urine Nitrite Ur Leukocyte Esterase Urine Opiates Screen Urine Fentanyl Screen Ur Barbiturates Screen Ur Phencyclidine Scrn Ur Amphetamines Screen U Benzodiazepines Scrn Urine Cocaine Screen U Marijuana (THC) Screen Ethyl Alcohol 06/05/23 06/05/23 06/05/23 11:49 11:49 17:24 MCV MCH MCHC RDW Plt Count MPV Immature Gran % (Auto) Neut % (Auto) Lymph % (Auto) Patrick % (Auto) Eos % (Auto) Baso % (Auto) Lymph # (Auto) Patrick # (Auto) Eos # (Auto) Baso # (Auto) Abs Immat Gran (auto) Absolute Neuts (auto) Absolute Nucleated RBC Nucleated RBC % (auto) PT INR APTT Anion Gap Estim Creat Clear Calc Estimated GFR Random Glucose Calcium Magnesium Total Bilirubin AST ALT Alkaline Phosphatase B-Natriuretic Peptide < 10 Total Protein Albumin Lipase 71 Urine Color Urine Appearance Urine pH Ur Specific [place] Urine Protein Urine Glucose (UA) Urine Ketones Urine Blood Urine Nitrite Ur Leukocyte Esterase Urine Opiates Screen Not Detected Urine Fentanyl Screen Not Detected Ur Barbiturates Screen Not Detected Ur Phencyclidine Scrn Not Detected Ur Amphetamines Screen Not Detected U Benzodiazepines Scrn Not Detected Urine Cocaine Screen Not Detected U Marijuana (THC) Screen Not Detected Ethyl Alcohol 06/05/23 06/05/23 06/05/23 17:24 17:48 17:48 MCV MCH MCHC RDW Plt Count MPV Immature Gran % (Auto) Neut % (Auto) Lymph % (Auto) Patrick % (Auto) Eos % (Auto) Baso % (Auto) Lymph # (Auto) Patrick # (Auto) Eos # (Auto) Baso # (Auto) Abs Immat Gran (auto) Absolute Neuts (auto) Absolute Nucleated RBC Nucleated RBC % (auto) PT INR APTT Anion Gap 16 Estim Creat Clear Calc 50.7 Estimated GFR 40 Random Glucose 130 H Calcium 7.9 L D Magnesium Total Bilirubin 1.0 AST 68 H ALT 64 H Alkaline Phosphatase 94 B-Natriuretic Peptide Total Protein 6.7 Albumin 3.7 Lipase Urine Color Yellow Urine Appearance Clear Urine pH 5.5 Ur Specific [place] 1.020 Urine Protein Trace Urine Glucose (UA) Negative Urine Ketones 15 Urine Blood Negative Urine Nitrite Negative Ur Leukocyte Esterase Negative Urine Opiates Screen Urine Fentanyl Screen Ur Barbiturates Screen Ur Phencyclidine Scrn Ur Amphetamines Screen U Benzodiazepines Scrn Urine Cocaine Screen U Marijuana (THC) Screen Ethyl Alcohol < 10 Imaging Radiologist's Impressions: Impressions Chest X-Ray 06/05/23 13:02 IMPRESSION: Unremarkable examination. Assessment and Plan (1) Alcohol withdrawal: Status: Acute (2) BENIGNO (acute kidney injury): Status: Acute Plan This is a 47-year-old female with pertinent history of alcohol use disorder, essential hypertension, gastroesophageal reflux disease who presents to the emergency department for concerns of alcohol withdrawal. #. Alcohol use disorder with concerns for withdrawal. Patient initiated on phenobarb protocol in the ER. Monitor CIWA. On thiamine and folic acid. Consulted addiction team and care team #. Sinus tachycardia in the setting of above #. Acute kidney injury, stage I likely prerenal. Monitor urine output and creatinine crystalloid resuscitation. Avoid nephrotoxins. Holding lisinopril and chlorthalidone #. Essential hypertension. Hold lisinopril and chlorthalidone as above. Resume as appropriate. Continue Coreg #. Gastroesophageal reflux disease. On PPI DVT prophylaxis: Lovenox Full code Admit as inpatient and will require two night minimum hospital stay for close monitoring of kidney function and mentation Time Spent With Patient Time: Total time managing care of this patient today ____ minutes. Quality Stroke Does the patient have a stroke diagnosis?: No VTE Prior VTE?: No VTE Risk Level:: Medical - moderate - high VTE Device Contraindication: Treatment Not Indicated VTE Drug Contraindication: N/A - Med Ordered
[2023-06-05] MEDS: Thiamine HCL 100 MG in 0.9 % Sodium Chloride 100 ML 202 MG IV (21:08)
[2023-06-05] MEDS: Enoxaparin Sodium 40 MG/0.4 ML SYRINGE SUBCUT (21:10)
[2023-06-05] MEDS: PHENobarbitaL sodium 130 MG/ML IM ONCE 295.1 MG IM (21:11)
[2023-06-05] MEDS: carvediloL 3.125 MG TABLET PO (21:18)
--- NOTE | 2023-06-05 21:34 | MHC.RECOVSUP ---
? Reason for consult:ETOH o? Current location:ED04? o? Identified substance use concern:? -? Support ? Intervention: o? Community resources provided ? Plan:Pt being admitted ? Additional information:[facility] met with this pt and discussed [facility] services after she's discharged. Pt said she'd take recovery resources but isn't going to make a decision yet but will call me if she decides to use outpatient treatment.
--- NOTE | 2023-06-05 23:00 | PC.NURSE ---
late entry: this administrative underwriter assumed care at 1900, A&Ox4, states pain on a scale of 7/10 headache. denies N/V, CIWA scored 7. Medications given as documented. Pt denies SI/HI, reports thoughts prior to arrival but no plan. 1:1 sitter at bedside. Pt ambulated independently to bathroom. Pt requesting belongings, reassured that they are safe. RN to RN report given to Charlene, Pt will be transported to room 473. Pt aware of plan.
[2023-06-05] MEDS: PHENobarbitaL sodium 130 MG/ML VIAL IM Q3Hx2 221 MG IM (23:28)
[2023-06-05] MEDS: 0.9 % Sodium Chloride Flush 3 ML SYRINGE IVFLUSH (23:30)
[2023-06-06] MEDS: PHENobarbitaL sodium 130 MG/ML VIAL IM Q3Hx2 221 MG IM (02:45)
[2023-06-06 02:48] VITALS: BP 139/86; PULSE 101; RESP 16; TEMP 37.1; O2SAT 97
[2023-06-06] MEDS: Omeprazole 20 MG CAPSULE.DR PO (05:26)
[2023-06-06 06:45] LABS: MANUAL DIFF FLAG NO
[2023-06-06 06:59] LABS: Basophils Absolute Auto 0.1 X10*3/uL (0.0-0.2); Basophils Percent Auto 1.5 % (0-2); Eosinophils Absolute Auto 0.2 X10*3/uL (0.0-0.4); Eosinophils Percent Auto 2.9 % (0-4); Hematocrit 30.4 % (37.0-47.0); Imm Gran Abs Auto 0.02 X10*3/uL (0.00-0.03); Imm Gran Pct Auto 0.3 % (0.0-0.4); Lymphocytes Absolute Auto 2.2 X10*3/uL (1.2-4.9); Lymphocytes Percent Auto 36.4 % (20-40); Mean Corpuscular HGB Conc 32.9 g/dl (31.0-35.0); Mean Corpuscular Hemoglobin 31.7 pg (27.0-33.0); Mean Corpuscular Volume 96.5 fL (80.0-98.0); Mean Platelet Volume 10.5 fL (9.4-12.3); Monocytes Absolute Auto 0.5 X10*3/uL (0.1-1.2); Monocytes Percent Auto 8.3 % (2-11); Neutrophils Percent Auto 50.6 % (45-73); Platelet Count 243 X10*3/uL (160-400); Red Blood Count 3.15 X10*6/uL (4.20-5.50); Red Cell Distribution Width 13.6 % (11.0-16.0); White Blood Count 5.9 X10*3/uL (4.8-10.8)
[2023-06-06 07:05] LABS: Anion Gap 17 (12-20); Blood Urea Nitrogen 25 mg/dL (9-16); Calcium 7.9 mg/dL (8.4-10.2); Carbon Dioxide 19 mmol/L (22-29); Chloride 106 mmol/L (96-108); Creatinine Clr Calc Pharmacy 55.8; Estimated Glomerular Filt Rate 44; Glucose Random 111 mg/dL (60-115); Potassium 3.8 mmol/L (3.3-5.1); Sodium 138 mmol/L (135-145)
[2023-06-06 07:37] VITALS: BP 149/100; PULSE 100; RESP 20; TEMP 36.2; O2SAT 98
[2023-06-06] MEDS: Magnesium Oxide 400 MG TABLET PO ×2 (08:42→17:38)
[2023-06-06] MEDS: PHENobarbitaL 15 MG TABLET 45 MG PO ×2 (08:42→20:51)
[2023-06-06] MEDS: Folic Acid 1 MG TABLET PO (08:42)
[2023-06-06] MEDS: ondansetron HCL 4 MG/2 ML VIAL IVPUSH (08:42)
[2023-06-06] MEDS: Cholecalciferol (Vitamin D3) 25 MCG TABLET PO (08:43)
[2023-06-06] MEDS: Multivitamin TABLET 1 TAB PO (08:43)
[2023-06-06] MEDS: Thiamine HCL 100 MG TABLET PO (08:43)
[2023-06-06] MEDS: carvediloL 3.125 MG TABLET PO ×2 (08:43→20:50)
[2023-06-06] MEDS: 0.9 % Sodium Chloride Flush 3 ML SYRINGE IVFLUSH ×3 (08:43→20:53)
[2023-06-06 11:42] VITALS: BP 154/99; PULSE 103; RESP 20; TEMP 36.7; O2SAT 98
--- NOTE | 2023-06-06 11:59 | HO.PM.IMPN ---
Subjective Subjective Date of Service: 06/06/23 Interval History: seen and examined this morning follow up for alcohol withdrawal some mild lower abdominal cramping, diarrhea resolved, now feels more constipated Review of Systems Review of Systems: Yes all other systems are reviewed and are negative Constitutional Constitutional: Denies chills and Denies fever(s) Cardiovascular Cardiovascular: Denies chest pain, Denies palpitations and Denies dyspnea Respiratory Respiratory: Denies cough and Denies dyspnea Gastrointestinal Gastrointestinal: Reports abdominal pain and Reports diarrhea Endocrine Endocrine: Denies palpitations Physical Exam Vital Signs: Vital Signs: Last Vital Signs Temp 98.0 F 06/06/23 11:42 Pulse 103 H 06/06/23 11:42 Resp 20 06/06/23 11:42 BP 154/99 H 06/06/23 11:42 Pulse Ox 98 06/06/23 11:42 O2 Del Method Room Air 06/06/23 11:42 BMI result Body Mass Index 25.5 Appearing in no acute distress lung sounds are clear to auscultation heart regular rate rhythm, clear S1, S2 positive bowel sounds, abdomen is soft, nontender neuro patient is alert x3, no focal deficits Objective Data Active Medications Acetaminophen (Acetaminophen 325 Mg Tablet) 650 mg PO Q6H PRN PRN Reason: Pain, Mild (Pain Scale 1-3) Albuterol Sulfate (Albuterol Sulfate 90 Mcg 8 Gm Inhaler) 2 puff INHALE Q4H PRN PRN Reason: shortness of breath or wheezing Carvedilol (Carvedilol 3.125 Mg Tablet) 3.125 mg PO BID [facility]; Protocol Last Admin: 06/06/23 08:43 Dose: 3.125 mg Documented By: WOODROW Cyclobenzaprine HCl (Cyclobenzaprine Hcl 5 Mg Tablet) 5 mg PO TID PRN PRN Reason: Muscle Spasm Docusate Sodium (Docusate Sodium 100 Mg Capsule) 100 mg PO BID PRN PRN Reason: Constipation Enoxaparin Sodium (Enoxaparin Sodium 40 Mg/0.4 Ml Syringe) 40 mg SUBCUT Q24H [facility] Last Admin: 06/05/23 21:10 Dose: 40 mg Documented By: JONH Folic Acid (Folic Acid 1 Mg Tablet) 1 mg PO DAILY [facility] Last Admin: 06/06/23 08:42 Dose: 1 mg Documented By: WOODROW Magnesium Oxide (Magnesium Oxide 400 Mg Tablet) 400 mg PO BIDPC [facility] Last Admin: 06/06/23 08:42 Dose: 400 mg Documented By: WOODROW Melatonin (Melatonin 3 Mg Tablet) 6 mg PO BEDTIME PRN PRN Reason: Insomnia Multivitamins/Vitamin C (Multivitamin Tablet) 1 tab PO DAILY [facility] Last Admin: 06/06/23 08:43 Dose: 1 tab Documented By: WOODROW Omeprazole (Omeprazole 20 Mg Capsule.Dr) 20 mg PO DAILY@0630 [facility] Last Admin: 06/06/23 05:26 Dose: 20 mg Documented By: HUBERT Ondansetron HCl (Ondansetron Hcl 4 Mg/2 Ml Vial) 4 mg IVPUSH Q8H PRN PRN Reason: Nausea and Vomiting Last Admin: 06/06/23 08:42 Dose: 4 mg Documented By: WOODROW Pharmacy Consult (Consult Rx Perform Med Rec) 1 each MISCELLANE ONCE PRN PRN Reason: Consult order Pharmacy Consult (Consult Rx Etoh Phenob Im/Po) 1 each MISCELLANE ONCE PRN; Protocol PRN Reason: Consult order Phenobarbital (Phenobarbital 15 Mg Tablet) 45 mg PO BID [facility]; Protocol Stop: 06/07/23 21:01 Last Admin: 06/06/23 08:42 Dose: 45 mg Documented By: WOODROW Phenobarbital (Phenobarbital 15 Mg Tablet) 15 mg PO BID [facility]; Protocol Stop: 06/09/23 21:01 Phenobarbital (Phenobarbital 15 Mg Tablet) 15 mg PO DAILY [facility]; Protocol Stop: 06/11/23 09:01 Sodium Chloride (0.9 % Sodium Chloride Flush 3 Ml Syringe) [facility] Last Admin: 06/06/23 08:43 Dose: 3 ml Documented By: WOODROW Thiamine HCl (Thiamine Hcl 100 Mg Tablet) 100 mg PO DAILY [facility] Last Admin: 06/06/23 08:43 Dose: 100 mg Documented By: WOODROW Vitamin D (Cholecalciferol (Vitamin D3) 25 Mcg Tablet) 25 mcg PO DAILY [facility] Last Admin: 06/06/23 08:43 Dose: 25 mcg Documented By: WOODROW Labs 06/06/23 06:16 06/06/23 06:16 Labs: Laboratory Results - last 24 hr 06/05/23 06/05/23 06/05/23 11:49 11:49 11:49 MCV MCH MCHC RDW Plt Count MPV Immature Gran % (Auto) Neut % (Auto) Lymph % (Auto) [place] % (Auto) Eos % (Auto) Baso % (Auto) Lymph # (Auto) [place] # (Auto) Eos # (Auto) Baso # (Auto) Abs Immat Gran (auto) Absolute Neuts (auto) Absolute Nucleated RBC Nucleated RBC % (auto) PT 11.2 INR 0.9 APTT 33.2 Anion Gap 29 H Estim Creat Clear Calc 42.8 Estimated GFR 33 Random Glucose 92 Calcium 9.4 Magnesium 1.8 Total Bilirubin 1.1 H AST 95 H ALT 84 H Alkaline Phosphatase 116 B-Natriuretic Peptide < 10 Total Protein 8.4 H Albumin 4.5 Lipase Urine Color Urine Appearance Urine pH Ur Specific [place] Urine Protein Urine Glucose (UA) Urine Ketones Urine Blood Urine Nitrite Ur Leukocyte Esterase Urine Opiates Screen Urine Fentanyl Screen Ur Barbiturates Screen Ur Phencyclidine Scrn Ur Amphetamines Screen U Benzodiazepines Scrn Urine Cocaine Screen U Marijuana (THC) Screen Ethyl Alcohol 06/05/23 06/05/23 06/05/23 11:49 17:24 17:24 MCV MCH MCHC RDW Plt Count MPV Immature Gran % (Auto) Neut % (Auto) Lymph % (Auto) [place] % (Auto) Eos % (Auto) Baso % (Auto) Lymph # (Auto) [place] # (Auto) Eos # (Auto) Baso # (Auto) Abs Immat Gran (auto) Absolute Neuts (auto) Absolute Nucleated RBC Nucleated RBC % (auto) PT INR APTT Anion Gap Estim Creat Clear Calc Estimated GFR Random Glucose Calcium Magnesium Total Bilirubin AST ALT Alkaline Phosphatase B-Natriuretic Peptide Total Protein Albumin Lipase 71 Urine Color Yellow Urine Appearance Clear Urine pH 5.5 Ur Specific [place] 1.020 Urine Protein Trace Urine Glucose (UA) Negative Urine Ketones 15 Urine Blood Negative Urine Nitrite Negative Ur Leukocyte Esterase Negative Urine Opiates Screen Not Detected Urine Fentanyl Screen Not Detected Ur Barbiturates Screen Not Detected Ur Phencyclidine Scrn Not Detected Ur Amphetamines Screen Not Detected U Benzodiazepines Scrn Not Detected Urine Cocaine Screen Not Detected U Marijuana (THC) Screen Not Detected Ethyl Alcohol 06/05/23 06/05/23 06/06/23 17:48 17:48 06:16 MCV 96.5 MCH 31.7 MCHC 32.9 RDW 13.6 Plt Count 243 MPV 10.5 Immature Gran % (Auto) 0.3 Neut % (Auto) 50.6 Lymph % (Auto) 36.4 [place] % (Auto) 8.3 Eos % (Auto) 2.9 Baso % (Auto) 1.5 Lymph # (Auto) 2.2 [place] # (Auto) 0.5 Eos # (Auto) 0.2 Baso # (Auto) 0.1 Abs Immat Gran (auto) 0.02 Absolute Neuts (auto) 3.0 Absolute Nucleated RBC 0.000 Nucleated RBC % (auto) 0.0 PT INR APTT Anion Gap 16 Estim Creat Clear Calc 50.7 Estimated GFR 40 Random Glucose 130 H Calcium 7.9 L D Magnesium Total Bilirubin 1.0 AST 68 H ALT 64 H Alkaline Phosphatase 94 B-Natriuretic Peptide Total Protein 6.7 Albumin 3.7 Lipase Urine Color Urine Appearance Urine pH Ur Specific [place] Urine Protein Urine Glucose (UA) Urine Ketones Urine Blood Urine Nitrite Ur Leukocyte Esterase Urine Opiates Screen Urine Fentanyl Screen Ur Barbiturates Screen Ur Phencyclidine Scrn Ur Amphetamines Screen U Benzodiazepines Scrn Urine Cocaine Screen U Marijuana (THC) Screen Ethyl Alcohol < 10 06/06/23 06:16 MCV MCH MCHC RDW Plt Count MPV Immature Gran % (Auto) Neut % (Auto) Lymph % (Auto) [place] % (Auto) Eos % (Auto) Baso % (Auto) Lymph # (Auto) [place] # (Auto) Eos # (Auto) Baso # (Auto) Abs Immat Gran (auto) Absolute Neuts (auto) Absolute Nucleated RBC Nucleated RBC % (auto) PT INR APTT Anion Gap 17 Estim Creat Clear Calc 55.8 Estimated GFR 44 Random Glucose 111 Calcium 7.9 L Magnesium Total Bilirubin AST ALT Alkaline Phosphatase B-Natriuretic Peptide Total Protein Albumin Lipase Urine Color Urine Appearance Urine pH Ur Specific [place] Urine Protein Urine Glucose (UA) Urine Ketones Urine Blood Urine Nitrite Ur Leukocyte Esterase Urine Opiates Screen Urine Fentanyl Screen Ur Barbiturates Screen Ur Phencyclidine Scrn Ur Amphetamines Screen U Benzodiazepines Scrn Urine Cocaine Screen U Marijuana (THC) Screen Ethyl Alcohol Assessment and Plan (1) Alcohol withdrawal: Status: Resolved Plan 47-year-old woman admitted with alcohol intoxication and withdrawal Acute alcohol intoxication/alcohol withdrawal Continue phenobarbital protocol. Folic acid, multivitamin and thiamine supplementation seen by recovery team, not interested in detox bedsearch, has appt at [facility] to start meds for etoh use Mental health. Apparently patient made an SI statement in the ER Patient at this time reports that she does not have any feelings of harming herself or anyone else Care team consultation when medically clear if needed can dc sitter Hypomagnesemia r/t etoh and diarrhea replace with IV and continue po supplementation diarrhea. resolved stool occult + reports intermittent blood on TP cramping abdominal pain H/H stable CT abdomen hepatic steatatosis Mild transaminitis Secondary to alcohol abuse LFTs trending down Asthma No exacerbation Albuterol as needed History of tachycardia Continue beta-lisa Hypertension Continue chlorthalidone, lisinopril GERD Continue PPI DVT prophylaxis with heparin Attending Dr. Smith Full code requires ongoing inpatient hospitalization for alcohol withdrawal, low magnesium, abdominal pain Time Spent With Patient Time: Total time managing care of this patient today ____ minutes. Quality Stroke Does the patient have a stroke diagnosis?: No VTE Prior VTE?: No VTE Risk Level:: Medical - moderate - high VTE Device Contraindication: Treatment Not Indicated VTE Drug Contraindication: N/A - Med Ordered
[2023-06-06 15:49] VITALS: BP 148/98; PULSE 109; RESP 18; TEMP 34.3; O2SAT 97
[2023-06-06 20:00] VITALS: BP 159/97; PULSE 110; RESP 22; TEMP 36.6; O2SAT 97
[2023-06-06] MEDS: Melatonin 3 MG TABLET 6 MG PO (20:51)
[2023-06-06] MEDS: Enoxaparin Sodium 40 MG/0.4 ML SYRINGE SUBCUT (20:51)
[2023-06-07] VITALS (7 sets, daily range): BP systolic 129–166; BP diastolic 87–110; PULSE 93–114; RESP 14–19; TEMP 35.9–36.7; O2SAT 96–99
[2023-06-07] MEDS: Omeprazole 20 MG CAPSULE.DR PO (06:42)
[2023-06-07] MEDS: ondansetron HCL 4 MG/2 ML VIAL IVPUSH (08:22)
[2023-06-07] MEDS: PHENobarbitaL 15 MG TABLET 45 MG PO ×2 (08:25→20:19)
[2023-06-07] MEDS: Thiamine HCL 100 MG TABLET PO (08:25)
[2023-06-07] MEDS: Multivitamin TABLET 1 TAB PO (08:25)
[2023-06-07] MEDS: Folic Acid 1 MG TABLET PO (08:25)
[2023-06-07] MEDS: Magnesium Oxide 400 MG TABLET PO ×2 (08:25→17:29)
[2023-06-07] MEDS: Cholecalciferol (Vitamin D3) 25 MCG TABLET PO (08:25)
[2023-06-07] MEDS: 0.9 % Sodium Chloride Flush 3 ML SYRINGE IVFLUSH ×2 (08:26→17:30)
[2023-06-07] MEDS: carvediloL 3.125 MG TABLET PO ×2 (08:26→20:19)
[2023-06-07] MEDS: Acetaminophen 325 MG TABLET 650 MG PO (08:27)
--- NOTE | 2023-06-07 10:53 | P.PNIM_ITS ---
Subjective Subjective Date of Service: 06/07/23 Interval History: seen and examined this morning follow up for alcohol withdrawal some mild lower abdominal cramping, diarrhea resolved, now feels more constipated Review of Systems Review of Systems: Yes all other systems are reviewed and are negative Constitutional Constitutional: Denies chills and Denies fever(s) Cardiovascular Cardiovascular: Denies chest pain, Denies palpitations and Denies dyspnea Respiratory Respiratory: Denies cough and Denies dyspnea Gastrointestinal Gastrointestinal: Reports abdominal pain and Reports diarrhea Endocrine Endocrine: Denies palpitations Physical Exam Vital Signs: Vital Signs: Last Vital Signs Temp 97.6 F 06/07/23 07:56 Pulse 98 06/07/23 07:56 Resp 19 06/07/23 07:56 BP 160/108 H 06/07/23 07:56 Pulse Ox 97 06/07/23 07:56 O2 Del Method Room Air 06/07/23 07:56 BMI result Body Mass Index 25.5 Appearing in no acute distress lung sounds are clear to auscultation heart regular rate rhythm, clear S1, S2 positive bowel sounds, abdomen is soft, nontender neuro patient is alert x3, no focal deficits Objective Data Active Medications Acetaminophen (Acetaminophen 325 Mg Tablet) 650 mg PO Q6H PRN PRN Reason: Pain, Mild (Pain Scale 1-3) Last Admin: 06/07/23 08:27 Dose: 650 mg Documented By: GENOVEVA Albuterol Sulfate (Albuterol Sulfate 90 Mcg 8 Gm Inhaler) 2 puff INHALE Q4H PRN PRN Reason: shortness of breath or wheezing Carvedilol (Carvedilol 3.125 Mg Tablet) 3.125 mg PO BID [facility]; Protocol Last Admin: 06/07/23 08:26 Dose: 3.125 mg Documented By: GENOVEVA Cyclobenzaprine HCl (Cyclobenzaprine Hcl 5 Mg Tablet) 5 mg PO TID PRN PRN Reason: Muscle Spasm Docusate Sodium (Docusate Sodium 100 Mg Capsule) 100 mg PO BID PRN PRN Reason: Constipation Enoxaparin Sodium (Enoxaparin Sodium 40 Mg/0.4 Ml Syringe) 40 mg SUBCUT Q24H [facility] Last Admin: 06/06/23 20:51 Dose: 40 mg Documented By: KORI Folic Acid (Folic Acid 1 Mg Tablet) 1 mg PO DAILY [facility] Last Admin: 06/07/23 08:25 Dose: 1 mg Documented By: GENOVEVA Magnesium Oxide (Magnesium Oxide 400 Mg Tablet) 400 mg PO BIDPC [facility] Last Admin: 06/07/23 08:25 Dose: 400 mg Documented By: GENOVEVA Melatonin (Melatonin 3 Mg Tablet) 6 mg PO BEDTIME PRN PRN Reason: Insomnia Last Admin: 06/06/23 20:51 Dose: 6 mg Documented By: KORI Multivitamins/Vitamin C (Multivitamin Tablet) 1 tab PO DAILY [facility] Last Admin: 06/07/23 08:25 Dose: 1 tab Documented By: GENOVEVA Omeprazole (Omeprazole 20 Mg Capsule.Dr) 20 mg PO DAILY@0630 [facility] Last Admin: 06/07/23 06:42 Dose: 20 mg Documented By: KORI Ondansetron HCl (Ondansetron Hcl 4 Mg/2 Ml Vial) 4 mg IVPUSH Q8H PRN PRN Reason: Nausea and Vomiting Last Admin: 06/07/23 08:22 Dose: 4 mg Documented By: GENOVEVA Pharmacy Consult (Consult Rx Perform Med Rec) 1 each MISCELLANE ONCE PRN PRN Reason: Consult order Pharmacy Consult (Consult Rx Etoh Phenob Im/Po) 1 each MISCELLANE ONCE PRN; Protocol PRN Reason: Consult order Phenobarbital (Phenobarbital 15 Mg Tablet) 45 mg PO BID [facility]; Protocol Stop: 06/07/23 21:01 Last Admin: 06/07/23 08:25 Dose: 45 mg Documented By: GENOVEVA Phenobarbital (Phenobarbital 15 Mg Tablet) 15 mg PO BID [facility]; Protocol Stop: 06/09/23 21:01 Phenobarbital (Phenobarbital 15 Mg Tablet) 15 mg PO DAILY [facility]; Protocol Stop: 06/11/23 09:01 Sodium Chloride (0.9 % Sodium Chloride Flush 3 Ml Syringe) 3 ml IVFLUSH [facility] Last Admin: 06/07/23 08:26 Dose: 3 ml Documented By: GENOVEVA Thiamine HCl (Thiamine Hcl 100 Mg Tablet) 100 mg PO DAILY [facility] Last Admin: 06/07/23 08:25 Dose: 100 mg Documented By: GENOVEVA Vitamin D (Cholecalciferol (Vitamin D3) 25 Mcg Tablet) 25 mcg PO DAILY [facility] Last Admin: 06/07/23 08:25 Dose: 25 mcg Documented By: GENOVEVA Labs 06/06/23 06:16 06/06/23 06:16 Assessment and Plan (1) Alcohol withdrawal: Status: Resolved Plan 47-year-old woman admitted with alcohol intoxication and withdrawal Acute alcohol intoxication/alcohol withdrawal Continue phenobarbital protocol. Folic acid, multivitamin and thiamine supplementation seen by recovery team, not interested in detox bedsearch, has appt at [facility] to start meds for etoh use Mental health. Apparently patient made an SI statement in the ER Patient at this time reports that she does not have any feelings of harming herself or anyone else Care team consultation pending Hypomagnesemia. Resolved r/t etoh and diarrhea replace with IV and continue po supplementation diarrhea. resolved stool occult + reports intermittent blood on TP cramping abdominal pain H/H stable CT abdomen hepatic steatatosis Mild transaminitis Secondary to alcohol abuse LFTs trending down Asthma No exacerbation Albuterol as needed History of tachycardia Continue beta-lisa Hypertension Continue chlorthalidone, lisinopril GERD Continue PPI DVT prophylaxis with heparin Attending Dr. Smith Full code requires ongoing inpatient hospitalization for alcohol withdrawal, low magnesium, abdominal pain Time Spent With Patient Time: Total time managing care of this patient today ____ minutes. Quality Stroke Does the patient have a stroke diagnosis?: No VTE Prior VTE?: No VTE Risk Level:: Medical - moderate - high VTE Device Contraindication: Treatment Not Indicated VTE Drug Contraindication: N/A - Med Ordered
[2023-06-07] MEDS: lisinopriL 40 MG TABLET PO (14:55)
--- NOTE | 2023-06-07 16:29 | MHC.CM.PN ---
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
[2023-06-07] MEDS: Meclizine HCl 25 MG TABLET PO (17:33)
[2023-06-07] MEDS: Enoxaparin Sodium 40 MG/0.4 ML SYRINGE SUBCUT (20:00)
[2023-06-07] MEDS: LORazepam 1 MG TABLET PO (20:20)
[2023-06-08] MEDS: 0.9 % Sodium Chloride Flush 3 ML SYRINGE IVFLUSH ×2 (00:29→08:27)
--- NOTE | 2023-06-08 01:03 | PC.NURSE ---
Assumed care at 07:00. patient alert, oriented x4. Impulsive with urinary urgency issues. Telesitter in use. AMbulates with less than full weight bearing to left foot. She reported dizziness, nausea, fatigue, left foot dorsal pain she says she was seen for at [facility] and tender to touch with mild swelling /10, and she says she had at some point fallen and hit her head before this admission and never seen a doctor for it. 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 PRN tylenol and ice packs for foot and PRN zofran for nausea with effect. Patient CIWA 4-8, developed worsening anxiety and mild tremors. Medicated as per emar. Patient on phenobarbital taper. Patient began meclizine for dizziness and with good effect per patient. Patient reported anxiety attack in evening, PRN anxiolytic with effect. Patient with hypertensive BPs 160/110, AUTOMOBILE [employer] PROPERTY UNDERWRITER aware, new order for lisinopril with effect.
[2023-06-08 04:00] VITALS: BP 133/86; PULSE 104; RESP 18; TEMP 37.1; O2SAT 98
[2023-06-08] MEDS: Omeprazole 20 MG CAPSULE.DR PO (06:03)
[2023-06-08 07:17] VITALS: BP 147/87; PULSE 97; RESP 20; TEMP 37; O2SAT 99
[2023-06-08] MEDS: Magnesium Oxide 400 MG TABLET PO (08:24)
[2023-06-08] MEDS: Cholecalciferol (Vitamin D3) 25 MCG TABLET PO (08:24)
[2023-06-08] MEDS: Multivitamin TABLET 1 TAB PO (08:24)
[2023-06-08] MEDS: Thiamine HCL 100 MG TABLET PO (08:24)
[2023-06-08] MEDS: hydroCHLOROthiazide 25 MG TABLET PO (08:24)
[2023-06-08] MEDS: Folic Acid 1 MG TABLET PO (08:24)
[2023-06-08] MEDS: carvediloL 3.125 MG TABLET PO (08:24)
[2023-06-08] MEDS: lisinopriL 40 MG TABLET PO (08:24)
[2023-06-08] MEDS: PHENobarbitaL 15 MG TABLET PO (08:24)
--- NOTE | 2023-06-08 10:28 | MHC.RECOVRN ---
This journalists and other writers met with patient after addiction consult was placed, pt presented to ED for concerns for ETOH withdrawal. Pt resting comfortably, watching t.v. Pt reports period of decreased use, ETOH use 1 pint to 1 liter 3x's weekly. Pt reports increased stress led to recent 7 day binge, 1-2 liters daily ETOH. Pt reports had accessed detox in the past, did not find it helpful. Pt reports had trial Naltrexone, pt reports nausea on Naltrexone and felt it was not helpful. Pt reports plans to follow up with Dr. Martin at [facility] to trial other medications for alcohol use. Harm reduction reviewed, recovery supports reviewed, resources left at bedside. Pt verbalized understanding. Pt encouraged to contact Addiction/Recovery team with any questions/concerns.
[2023-06-08 11:14] VITALS: BP 131/91; PULSE 104; RESP 20; TEMP 36.7; O2SAT 99
--- NOTE | 2023-06-08 11:52 | PM.DS ---
DS: Providers Provider Date of Service: 06/08/23 Date of admission: 06/05/23 20:31 Primary care physician: [facility] Consults: 06/05/23 13:14 Consult to Care Team Stat Comment: Reason for consultation: SI. HEre for alcohol withdrawal 06/05/23 20:31 Addiction Medicine Routine Consulting Provider: Addiction Covering Reason for consultation: alcohol use disorder 06/07/23 10:53 Consult to Care Team Routine Comment: Reason for consultation: depression , SI in the ED 06/07/23 15:24 Consult to Psychiatry Routine Consulting Provider: Psych Covering Reason for consultation: severe depression, medication initiation DS: Diagnosis Discharge Diagnosis (1) Alcohol withdrawal: Status: Resolved DS: Summary Hospital Course Hospital Course: History and physical as per admitting provider. This is a 47-year-old female with pertinent history of alcohol use disorder, essential hypertension, gastroesophageal reflux disease who presents to the emergency department for concerns of alcohol withdrawal.? Patient states she went on an alcohol binge for the past 7 days.? Her last drink was last night.? Since then, patient has been feeling anxious and has been having tremors.? Also has been having nausea and sweating.? Does have a history of alcohol withdrawal in the past.? Patient states she is motivated to quit and wants information for detox.? She denies fever, chills, chest discomfort, shortness of breath, abdominal pain, changes in urinary or bowel habits. In the emergency department, CIWA found to be elevated and patient was initiated on phenobarb protocol.? Patient found to have BENIGNO. 47-year-old woman treated for acute alcohol intoxication and withdrawal. She was treated with phenobarbital protocol, folic acid, multivitamin and thiamine supplementation. She was seen and evaluated by the recovery team and was not interested in a detox bed search. She did have an incident in the ER where she made suicidal ideation comments but had subsequently been cleared by the care team and she also voiced that she did not have any intent to harm herself or anyone else. Hypo magnesiumia secondary to alcohol abuse, repleted and resolved. Noted mild transaminitis with LFTs trending down. She had some episodes of diarrhea that pretty quickly resolved spontaneously. She did report feelings of depression, was seen and evaluated by the psychiatric team and patient reported that she takes trileptal on an as needed basis so no new medications given. Follow up with psychiatrist o/p. Asthma. No exacerbation. Continue home medications History of tachycardia. Continue beta-lisa Hypertension. Continue medications GERD. Continue PPI Time Spent with Patient Time attestation: Total time managing care of this patient today ____ minutes. Discharge coordination time: Greater than 30 minutes Quality: Safe Use of Opioids Does Pt have an Active Cancer Diagnosis on the Problem List?: No Quality: Stroke Does the patient have a stroke diagnosis?: No Physical Exam Vital Signs: Vital Signs: Last Vital Signs Temp 98.0 F 06/08/23 11:14 Pulse 104 H 06/08/23 11:14 Resp 20 06/08/23 11:14 BP 131/91 H 06/08/23 11:14 Pulse Ox 99 06/08/23 11:14 O2 Del Method Room Air 06/08/23 11:14 BMI result Body Mass Index 25.5 Appearing in no acute distress head is normocephalic atraumatic eyes pupils are PERRLA sclera is anicteric mouth throat mucous membranes are intact and moist neck is supple no lymphadenopathy, no JVD noted lung sounds are clear to auscultation heart regular rate rhythm, clear S1, S2 positive bowel sounds, abdomen is soft, nontender neuro patient is alert x3, no focal deficits DS: Data Data Completed and Pending Completed studies during hospitalization [Text1]: Procedures Detoxification Services for Substance Abuse Treatment (12/31/22) Discharge Plan Discharge Anticipated Discharge Date/Time: 06/08/23 11:49 Patient Disposition: Home, Self-Care Discharge Diagnosis: Acute alcohol intoxication BENIGNO Depression Hypomagnesemia Diarrhea Transaminitis Referrals: [place] [Physician] - 1 Week Discharge Medications: Continued (DME) ACL defiance brace See Rx Instructions .ROUTE .MEDSUPPLY Qty: 1 0RF Rx Instructions: n/a albuterol sulfate 90 mcg/actuation HFA aerosol inhaler 2 puff inhalation Q4-6H PRN (Reason: shortness of breath or wheezing) Qty: 8.5 0RF thiamine HCl (vitamin B1) 100 mg tablet 1 tab PO DAILY omeprazole 20 mg capsule,delayed release(DR/EC) 1 cap PO DAILY@0630 folic acid 1 mg tablet 1 tab PO DAILY magnesium oxide 400 mg (241.3 mg magnesium) Tablet 400 mg PO BIDPC 30 Days Qty: 60 0RF chlorthalidone 25 mg tablet 1 tab PO DAILY carvedilol 3.125 mg tablet 1 tab PO BID docusate sodium 100 mg capsule 1 cap PO BID PRN (Reason: Constipation) cholecalciferol (vitamin D3) [Vitamin D3] 25 mcg (1,000 unit) capsule 1 cap PO QAM Certavite-Antioxidant 18-400 mg-mcg tablet 1 tab PO DAILY acetaminophen 500 mg tablet 1 tab PO Q6-8H PRN (Reason: fever) lidocaine 5 % adhesive patch,medicated 1 patch topical DAILY PRN (Reason: pain) Qty: 15 0RF Rx Instructions: leave on most painful area for up to 12 hrs cyclobenzaprine 5 mg tablet 5 mg PO TID PRN (Reason: Muscle Spasm) lisinopril 40 mg tablet 40 mg PO QAM Discharge Orders: Discharge Order (Routine); Ordered 06/08/23 Ordered By: Deirdre Cordoba Diet: Advance to usual diet Activity on Discharge: As tolerated Stand Alone Forms: Patient Portal Discharge page Care Plan Goals: Complete resolution of symptoms Health Concerns: Acute alcohol intoxication Depression Hypomagnesemia Diarrhea Transaminitis BENIGNO Plan of Treatment: Follow-up with primary care provider as needed Find a therapist in the community to continue treatment for depression Avoid drinking alcohol Assessment: See discharge summary
[2023-06-08] MEDS: Docusate Sodium 100 MG CAPSULE PO (11:59)
[2023-06-08] MEDS: Acetaminophen 325 MG TABLET 650 MG PO (11:59)
--- NOTE | 2023-06-08 12:21 | PM.EVENT ---
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 No follow up at this time Time Spent With Patient Time: Total time managing care of this patient today ____ minutes.
--- NOTE | 2023-06-08 13:24 | P.CNPS_ITS ---
History of Present Illness Date of Service: 06/08/2023 Chief Complaint: Tremors Reason for Consult: To determine if pt should be started on medication for mood. Requesting physician: Deirdre Cordoba Discussed with referring provider: Yes Sources of Information: patient interviewed and chart reviewed HPI Narrative: Patient is a 47-year-old female with pertinent history of alcohol use disorder, essential hypertension, gastroesophageal reflux disease who presents to the emergency department for concerns of alcohol withdrawal. Patient states she went on an alcohol binge for the past 7 days. Patient has been feeling anxious, tremors, nausea and sweating. Does have a history of alcohol withdrawal in the past. Patient states she is motivated to quit and wants information for detox. She denies fever, chills, chest discomfort, shortness of breath, abdominal pain, changes in urinary or bowel habits. In the emergency department, CIWA found to be elevated and patient was initiated on phenobarb protocol. Patient found to have BENIGNO. Consult was placed by hospitalist to determine if patient should be started on medication for her mood. Past Psychiatric History: hx of psychiatric inpatient admissions (pt unable to recall date) hx of suicide attempt (pt reports 30 years ago) hx of multiple respite admissions. Medical Evaluation Reviewed: Yes Review of Systems Constitutional: Reports as per HPI Eyes: Reports as per HPI Reports as per HPI Cardiovascular: Reports as per HPI Respiratory: Reports as per HPI Gastrointestinal: Reports as per HPI Genitourinary: Reports as per HPI Musculoskeletal: Reports as per HPI Skin/Breast: Reports as per HPI Reports as per HPI Psychiatric: Reports as per HPI Endocrine: Reports as per HPI Hematologic/Lymphatic: Reports as per HPI Allergic/Immunologic: Reports as per HPI [facility] Medical History Anxiety Anxiety and depression Breast cancer H/O ETOH abuse History of COVID-19 History of low potassium Hypertension Panic attack Uncontrolled hypertension Surgical History H/O: hysterectomy History of breast lump/mass excision History of carpal tunnel release Hx of tubal ligation Family History: unknown Social History: Lives alone; disabled; 3 kids. Substance History: ETOH abuse. Trauma History: unknown Diagnostics Vital Signs (24Hr): Vital Signs - 24 hr 06/07/23 16:00 06/07/23 20:00 06/07/23 23:42 Temperature 96.7 F L 97.6 F 97.6 F Pulse Rate 114 H 111 H 106 H Respiratory Rate 14 14 18 Blood Pressure 144/101 H 138/91 H 129/90 H Pulse Oximetry 97 98 97 Oxygen Delivery Method Room Air Room Air Room Air 06/08/23 04:00 06/08/23 07:17 06/08/23 11:14 Temperature 98.7 F 98.6 F 98.0 F Pulse Rate 104 H 97 104 H Respiratory Rate 18 20 20 Blood Pressure 133/86 147/87 H 131/91 H Pulse Oximetry 98 99 99 Oxygen Delivery Method Room Air Room Air Room Air BMI result Body Mass Index 25.5 Labs 06/06/23 06:16 06/06/23 06:16 Imaging Radiology Impressions: ITS Impressions Chest X-Ray 06/05/23 13:02 IMPRESSION: Unremarkable examination. Mental Status Exam Mental Status Exam Narrative: Pt is alert and oriented; behavior is cooperative and calm; patient is not in distress; dressed in casual attire; mood is described as okay ; eye contact appropriate; Speech is normal rate, volume and prosody and not pressured; no psychomotor agitation/retardation present; thought process is organized and goal directed; Thought content is on tx; otherwise pertinent to relevant topics and without any delusional content, paranoid ideations or grandiosity; denies SI/HI. There is no evidence of perceptual disturbance. Patients insight and judgment are fair. Medications Medications Current Medications Acetaminophen (Acetaminophen 325 Mg Tablet) 650 mg PO Q6H PRN PRN Reason: Pain, Mild (Pain Scale 1-3) Last Admin: 06/08/23 11:59 Dose: 650 mg Albuterol Sulfate (Albuterol Sulfate 90 Mcg 8 Gm Inhaler) 2 puff INHALE Q4H PRN PRN Reason: shortness of breath or wheezing Carvedilol (Carvedilol 3.125 Mg Tablet) 3.125 mg PO BID [facility]; Protocol Last Admin: 06/08/23 08:24 Dose: 3.125 mg Cyclobenzaprine HCl (Cyclobenzaprine Hcl 5 Mg Tablet) 5 mg PO TID PRN PRN Reason: Muscle Spasm Docusate Sodium (Docusate Sodium 100 Mg Capsule) 100 mg PO BID PRN PRN Reason: Constipation Last Admin: 06/08/23 11:59 Dose: 100 mg Enoxaparin Sodium (Enoxaparin Sodium 40 Mg/0.4 Ml Syringe) 40 mg SUBCUT Q24H [facility] Last Admin: 06/07/23 20:00 Dose: 40 mg Folic Acid (Folic Acid 1 Mg Tablet) 1 mg PO DAILY [facility] Last Admin: 06/08/23 08:24 Dose: 1 mg Hydrochlorothiazide (Hydrochlorothiazide 25 Mg Tablet) 25 mg PO DAILY [facility] Last Admin: 06/08/23 08:24 Dose: 25 mg Lisinopril (Lisinopril 40 Mg Tablet) 40 mg PO DAILY [facility]; Protocol Last Admin: 06/08/23 08:24 Dose: 40 mg Lorazepam (Lorazepam 1 Mg Tablet) 1 mg PO TID PRN PRN Reason: anxiety Last Admin: 06/07/23 22:21 Dose: 1 mg Magnesium Oxide (Magnesium Oxide 400 Mg Tablet) 400 mg PO BIDPC [facility] Last Admin: 06/08/23 08:24 Dose: 400 mg Meclizine HCl (Meclizine Hcl 25 Mg Tablet) 25 mg PO Q8H PRN PRN Reason: dizziness Last Admin: 06/07/23 17:33 Dose: 25 mg Melatonin (Melatonin 3 Mg Tablet) 6 mg PO BEDTIME PRN PRN Reason: Insomnia Last Admin: 06/06/23 20:51 Dose: 6 mg Multivitamins/Vitamin C (Multivitamin Tablet) 1 tab PO DAILY [facility] Last Admin: 06/08/23 08:24 Dose: 1 tab Omeprazole (Omeprazole 20 Mg Capsule.Dr) 20 mg PO DAILY@0630 [facility] Last Admin: 06/08/23 06:03 Dose: 20 mg Ondansetron HCl (Ondansetron Hcl 4 Mg/2 Ml Vial) 4 mg IVPUSH Q8H PRN PRN Reason: Nausea and Vomiting Last Admin: 06/07/23 08:22 Dose: 4 mg Pharmacy Consult (Consult Rx Perform Med Rec) 1 each MISCELLANE ONCE PRN PRN Reason: Consult order Pharmacy Consult (Consult Rx Etoh Phenob Im/Po) 1 each MISCELLANE ONCE PRN; Protocol PRN Reason: Consult order Phenobarbital (Phenobarbital 15 Mg Tablet) 15 mg PO BID [facility]; Protocol Stop: 06/09/23 21:01 Last Admin: 06/08/23 08:24 Dose: 15 mg Phenobarbital (Phenobarbital 15 Mg Tablet) 15 mg PO DAILY [facility]; Protocol Stop: 06/11/23 09:01 Sodium Chloride (0.9 % Sodium Chloride Flush 3 Ml Syringe) 3 ml IVFLUSH QSHIFT [facility] Last Admin: 06/08/23 08:27 Dose: 3 ml Thiamine HCl (Thiamine Hcl 100 Mg Tablet) 100 mg PO DAILY [facility] Last Admin: 06/08/23 08:24 Dose: 100 mg Vitamin D (Cholecalciferol (Vitamin D3) 25 Mcg Tablet) 25 mcg PO DAILY [facility] Last Admin: 06/08/23 08:24 Dose: 25 mcg Allergies Allergies Allergy/AdvReac Type Severity Reaction Status Date / Time amoxicillin [AMOXICILLIN] Allergy Intermediate rash, Verified 02/09/23 14:52 rash/itching Sulfa (Sulfonamide Allergy Intermediate rash/itchin Verified 02/09/23 14:52 Antibiotics) g sulfamethoxazole Allergy Intermediate RASH Verified 02/09/23 14:52 [From BACTRIM] trimethoprim [From BACTRIM] Allergy Intermediate RASH Verified 02/09/23 14:52 hydrocodone [Hydrocodone] Allergy Mild ITCH Verified 02/09/23 14:52 ibuprofen [From Motrin] Allergy Mild UPSET Verified 02/09/23 14:52 STOMACH latex [Latex] Allergy Mild ITCH Verified 02/09/23 14:52 Assessment & Plan Assessment & Plan (1) Depression: Status: Acute Code(s): F32.A - Depression, unspecified (2) Alcohol withdrawal: Status: Acute Code(s): F10.939 - Alcohol use, unspecified with withdrawal, unspecified Plan Pt is a 47 year old female who presents calm and cooperative during assessment. Patient reports drinking alcohol 3x week; she has tried Naltrexone in the past but reports it made me sick . Patient reports anxiety and depression since the age of 10. Patient stated, I have a psychiatrist and therapist at [facility], I just haven't seen them in a month. I've tried a lot of medications in my life. I'm more of an 'as-needed' person for medications. I take what I need to survive. That's it . Patient was educated on importance of medication compliance. Patient understood and stated she would continue taking her medication when she returns home and will make an appointment with her psychiatrist/therapist. Patient stated, I made a stupid comment about killing myself by mistake. I wouldn't do that. I've been to respite a bunch of times. I know how to get help . Pt future oriented; Patient reports she will call 911 or will go to her nearest ER if feeling unsafe. Patient states she plans on attending AA meetings to remain sober. Recommendations: -Follow up appointment with her outpatient psychiatrist and therapist at [facility]. -Pt reports she has Trileptal at home but only takes it as needed . Pt was educated on importance of mediation compliance. Pt stated, I'll start taking them again when I get home and call my psychiatrist . Re-educate importance of mediation compliance. -Encourage outpatient treatment for sobriety. Total time managing care of this patient today _30___ minutes. Patient educated on: diagnosis, medication risk/benefits, substance abuse and therapeutic strategies Informed Consent: understands
[2023-06-08 15:14] VITALS: BP 155/99; PULSE 107; RESP 20; TEMP 36.1; O2SAT 100
--- NOTE | 2023-06-08 16:05 | MHC.CM.PN ---
Pt is medically cleared for D/C home self-care. Pts will transport her home.
== END 2023-06-08 16:30 | disposition home or self-care (01) | DRG 425 ==
LOC: HO.ED 17:37 → HO.EDOVER 20:40 → HO.IMC 21:25
PROVIDERS: Physician Assistant; Admitting Provider Student in an Organized Health Care Education/Training Program; Emergency Provider Emergency Medicine; PCP Family Medicine; Visit Provider Nurse Practitioner Acute Care
DX: E83.42 Hypomagnesemia (principal); E87.29 Other acidosis; N17.9 Acute kidney failure, unspecified; R45.851 Suicidal ideations; F17.210 Nicotine dependence, cigarettes, uncomplicated; I10 Essential (primary) hypertension; K21.9 Gastro-esophageal reflux disease without esophagitis; F10.139 Alcohol abuse with withdrawal, unspecified; F10.129 Alcohol abuse with intoxication, unspecified; J45.909 Unspecified asthma, uncomplicated; F41.9 Anxiety disorder, unspecified; F32.A Depression, unspecified; Z71.6 Tobacco abuse counseling; Z79.899 Other long term (current) drug therapy
CPT/HCPCS: 36415; 71045; 80048; 80053; 80307; 81003; 83690; 83735; 83880; 84484; 85025; 85610; 85730; 93005; 99285; J1650; J2060; J2405; J2560; J3411; S9485

== ENCOUNTER → 2023-06-05 11:07 | Outpatient (BNV) | payer MEDICAID, SELFPAY | PROVIDERS: Emergency Provider Emergency Medicine; Visit Provider Internal Medicine | DX: R00.0 Tachycardia, unspecified (principal); R94.31 Abnormal electrocardiogram [ECG] [EKG] | CPT/HCPCS: 93010 ==

== ENCOUNTER → 2023-06-05 20:31 | Outpatient (BNV) | payer MEDICAID, SELFPAY | PROVIDERS: Admitting Provider Student in an Organized Health Care Education/Training Program; Emergency Provider Emergency Medicine; Visit Provider Student in an Organized Health Care Education/Training Program | DX: F10.939 Alcohol use, unspecified with withdrawal, unspecified (principal); N17.9 Acute kidney failure, unspecified | CPT/HCPCS: 99222; 99232; 99239 ==

== ENCOUNTER → 2023-06-05 20:31 | Outpatient (BNV) | payer OTHER, SELFPAY | PROVIDERS: Admitting Provider Student in an Organized Health Care Education/Training Program; Emergency Provider Emergency Medicine; Visit Provider Nurse Practitioner Psychiatric/Mental Health | DX: F33.2 Major depressive disorder, recurrent severe without psychotic features (principal); F10.939 Alcohol use, unspecified with withdrawal, unspecified | CPT/HCPCS: 99232; 99499 ==

== ENCOUNTER 2023-06-22 09:18 | Outpatient (AMB) | payer MEDICAID, SELFPAY ==
--- NOTE | 2023-06-22 09:26 | A.OFFVIS_ITS ---
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: No Accompanied by: Self / Same As Patient Allergies amoxicillin [AMOXICILLIN] Allergy (Intermediate, Verified 06/22/23 09:29) rash, rash/itching Sulfa (Sulfonamide Antibiotics) Allergy (Intermediate, Verified 06/22/23 09:29) rash/itching sulfamethoxazole [From BACTRIM] Allergy (Intermediate, Verified 06/22/23 09:29) RASH trimethoprim [From BACTRIM] Allergy (Intermediate, Verified 06/22/23 09:29) RASH hydrocodone [Hydrocodone] Allergy (Mild, Verified 06/22/23 09:29) ITCH ibuprofen [From Motrin] Allergy (Mild, Verified 06/22/23 09:29) UPSET STOMACH latex [Latex] Allergy (Mild, Verified 06/22/23 09:29) ITCH HPI BILATERAL PRIMARY OSTEOARTHRITIS OF KNEE HPI Details Patient is a pleasant 47 years old female who presents today with chronic bilateral knee pain due to moderate to severe knee osteoarthritis, right>left. Denies any recent trauma, injury or falls. Patient has been referred to us by an Orthopedic office for interventional treatments with longer effi cacy. Patient reports she has failed physical therapy as she could not tolerate PT due to significant increase in pain and worsening of her symptoms. Bilateral knee pain increases with daily activities, limiting her ADLs and functioning, affecting her sleep, mood, social interactions and quality of life. She is unable to take NSAIDs due to GI upset. TKA option was discussed with patient by Orthopedics for future but deemed non-surgical at this time due to young age. Most recent cortisone injections in both knees were given on 05/25/[address] Gates with good but short term pain relief. Reports history of right knee ACL repair in . She also reports shoulders and low back pain. Today we focused on bilateral knee pain. Denies any recent cough, cold, infection, fever or other significant changes in medical history since last office visit. Patient denies any bladder or bowel incontinence or saddle anesthesia. Location Bilateral knees, shoulders, low back Duration Chronic pain for over 5 years, progressively worsening Characteristics of symptom or complaint Aching, burning, stiffness, hot, stabbing, throbbing, spasming Aggravating or associated factors Walking, standing, climbing and descending stairs, movements, cold weather Relieving factors Tylenol, topical applications, ice therapy Treatment PT-increased pain, Cortisone injections-partial relief PFSH Medical History (Updated 06/24/23 @ 15:12 by JORDAN Graf) Anxiety Anxiety and depression Breast cancer Depression H/O ETOH abuse History of COVID-19 History of low potassium Hypertension Lower back pain Panic attack Uncontrolled hypertension Surgical History H/O: hysterectomy History of breast lump/mass excision History of carpal tunnel release Hx of tubal ligation Family History Mother Heart disease Alzheimers disease Social History Household Members: Other Housing: Apartment Do you presently have visiting nurse or other home services: No Alcohol intake: current Alcohol intake frequency: 3 or more drinks per day Alcohol type: hard liquor Patient Tobacco Use Status: Current everyday Tobacco user Tobacco use type: Cigarette Cigarettes Per Day: 10 Second Hand Smoke Exposure: Yes Advance Directives Date on File: 02/11/22 service: No Current occupational status: disabled Review of Systems Const All systems reviewed & are unremarkable except as noted in HPI and below Physical Exam Vital Signs: Last Vital Signs Pulse 114 H 06/22/23 09:32 BP 120/95 H 06/22/23 09:32 Pulse Ox 96 06/22/23 09:32 Oxygen Delivery Method Room Air 06/22/23 09:32 BMI result Body Mass Index 27.2 General: Appears afebrile. Alert and oriented. Mood and affect appropriate. Follows and participates in conversation appropriately. Respiratory effort is unlabored. No cough. No nasal discharge. Able to transition from sit to stand unassisted. Ambulates with bilaterally normal heel strike and toe off. Back/Spine/Pelvis Cervical Spine: cervical ROM normal and No Cervical spine tenderness Thoracic/Lumbar Spine: thoracic and lumbar spine normal to inspection, No Thoracic/lumbar spine scar(s), Lasegue's sign negative, straight leg raise negative bilaterally, pain with thoraco-lumbar ROM, No thoracic spinal tenderness and lumbar spinal tenderness Extrem General: Yes capillary refill normal, Yes no clubbing, cyanosis or edema and Yes no calf tenderness Right lower extremity: knee (Well healed incision h/o ACL repair) Details: normal to inspection, tenderness Location: of the medial joint line, normal ROM and crepitus; no swelling, no ecchymosis and no unusual warmth Left lower extremity: knee Details: tenderness Location: of the medial joint line and of the lateral joint line, normal ROM and crepitus; no swelling, no ecchymosis and no unusual warmth Results Reviewed Results Reviewed: Severe right knee OA and moderate to severe left knee OA Assessment & Plan Assessment & Plan (1) Bilateral primary osteoarthritis of knee: Code(s): M17.0 - Bilateral primary osteoarthritis of knee (2) Bilateral knee pain: Code(s): M25.561 - Pain in right knee; M25.562 - Pain in left knee (3) Lower back pain: Code(s): M54.50 - Low back pain, unspecified Plan Today we discussed risks and benefits of peripheral nerve stimulation with Sprint device for bilateral knee pain due to moderate-severe OA. Informational pamphlet provided to patient. Schedule Diagnostic Bilateral Saphenous Nerve Blocks at adductor canal with local and US guidance. Advised her to take 1-2 tablet of Ativan, prior to the procedure for her anxiety. Discussed the risks and benefits of the procedure with the patient in detail. Script provided for lidocaine patches. All questions were answered and patient agreed with the plan. Follow up after injections and sooner as needed. Medications: Refilled lidocaine 5% leave on most painful area for up to 12 hrs 1 patch topical DAILY PRN 60 ea 3RF pain M17.0 - Bilateral primary osteoarthritis of knee, M25.561 - Pain in right knee, M25.562 - Pain in left knee Coding Level of Care Code New Pt Level 4 (69999) Diagnoses Bilateral primary osteoarthritis of knee M17.0 Bilateral knee pain M25.561; M25.562 Lower back pain M54.50
[2023-06-22 09:32] VITALS: BP 120/95; PULSE 114; O2SAT 96; BMI 27.2
== END 2023-06-22 10:04 | disposition home or self-care (01) ==
PROVIDERS: Visit Provider Nurse Practitioner Family
DX: M17.0 Bilateral primary osteoarthritis of knee (principal); M25.561 Pain in right knee; M25.562 Pain in left knee; M54.50 Low back pain, unspecified
CPT/HCPCS: 99204

== ENCOUNTER → 2023-06-22 09:18 | Outpatient (BNVA) | payer MEDICAID, SELFPAY | PROVIDERS: Visit Provider Nurse Practitioner Family | DX: M17.0 Bilateral primary osteoarthritis of knee (principal); M25.561 Pain in right knee; M25.562 Pain in left knee; M54.50 Low back pain, unspecified | CPT/HCPCS: 99204 ==

== ENCOUNTER 2023-07-17 10:59 | Outpatient (AMB) | payer MEDICAID, SELFPAY ==
[2023-07-17 11:19] VITALS: BP 135/98; PULSE 96; RESP 14; O2SAT 100; BMI 25.5
--- NOTE | 2023-07-17 11:19 | MHC.OFFVIS ---
Intake Vital Signs 07/17/23 11:19 Height 5 ft 7 in Weight 163 lb BMI 25.5 BP 135/98 H Blood Pressure Location Lt brachial Position Sitting Respiration 14 Pulse 96 Pulse Source Pulse Oximeter Pulse Oximetry (%) 100 Oxygen Delivery Method Room Air Intake Visit Reasons: left SNB at adductor canal Allergies amoxicillin [AMOXICILLIN] Allergy (Intermediate, Verified 06/22/23 09:29) rash, rash/itching Sulfa (Sulfonamide Antibiotics) Allergy (Intermediate, Verified 06/22/23 09:29) rash/itching sulfamethoxazole [From BACTRIM] Allergy (Intermediate, Verified 06/22/23 09:29) RASH trimethoprim [From BACTRIM] Allergy (Intermediate, Verified 06/22/23 09:29) RASH hydrocodone [Hydrocodone] Allergy (Mild, Verified 06/22/23 09:29) ITCH ibuprofen [From Motrin] Allergy (Mild, Verified 06/22/23 09:29) UPSET STOMACH latex [Latex] Allergy (Mild, Verified 06/22/23 09:29) ITCH HPI left SNB at adductor canal HPI Details 47-year-old female who presents today to the office for a left SNB at adductor canal. Denies any recent cough, cold, infection, fever or other significant changes in medical history since last office visit. COUNTS INCLUDE 234 BEDS AT THE [facility] Medical History (Updated 07/17/23 @ 12:19 by Raj Spann MD) Depression Anxiety and depression Lower back pain History of COVID-19 Uncontrolled hypertension Panic attack H/O ETOH abuse Anxiety History of low potassium Breast cancer Hypertension Surgical History History of carpal tunnel release Hx of tubal ligation History of breast lump/mass excision H/O: hysterectomy Family History Mother Heart disease Alzheimers disease Social History Household Members: Other Housing: Apartment Do you presently have visiting nurse or other home services: No Alcohol intake: current Alcohol intake frequency: 3 or more drinks per day Alcohol type: hard liquor Patient Tobacco Use Status: Current everyday Tobacco user Tobacco use type: Cigarette Cigarettes Per Day: 10 Second Hand Smoke Exposure: Yes Advance Directives Date on File: 02/11/22 service: No Current occupational status: disabled Review of Systems Const All systems reviewed & are unremarkable except as noted in HPI and below Physical Exam Vital Signs: Last Vital Signs Pulse 96 07/17/23 11:19 Resp 14 07/17/23 11:19 BP 135/98 H 07/17/23 11:19 Pulse Ox 100 07/17/23 11:19 Oxygen Delivery Method Room Air 07/17/23 11:19 BMI result Body Mass Index 25.5 General: Appears afebrile. Alert and oriented. Mood and affect appropriate. Follows and participates in conversation appropriately. Respiratory effort is unlabored. Able to transition from sit to stand unassisted. Ambulates with bilaterally normal heel strike and toe off. Office Procedures Nerve Block Details: Left adductor canal saphenous nerve block, ultrasound-guided After obtaining written consent, pre-procedure blood pressure and heart rate were stable and recorded in the nursing record. The patient was placed supine on the table. The medial thigh area overlying the adductor canal was widely prepped with chloraprep, allowed to dry and sterilely draped. Using ultrasound, the appropriate landmarks including the femoral artery and saphenous nerve were identified. A 21 gauge 80 mm echostim needle was advanced under sonographic guidance to the adductor canal. Aspiration was negative for heme and synovial fluid. 10 cc of lidocaine 1% was injected around the saphenous nerve. The needles were removed, skin cleansed and a sterile bandage was applied. The patient tolerated the procedure well and no complications were encountered. Following the procedure, the patient's vital signs and knee strength were stable. The patient was discharged home in good condition with post-procedural instructions. Time Out: Immediately prior to the procedure, the following was verbally confirmed that there is a signed consent form and that the correct patient, planned procedure, site and side are consistent with documentation and that necessary equipment and/or blood products are available prior to the start of the case. Complications: none EBL: <1 cc Note: An ultrasound image of the injection was taken and stored in the permanent record. 60904 - Femoral (adductor injection) (Left) Procedure code (CPT) selection complete Results Reviewed Results Reviewed: No imaging is available for review. Assessment & Plan Assessment & Plan (1) Bilateral knee pain: Code(s): M25.561 - Pain in right knee; M25.562 - Pain in left knee Qualifiers: Chronicity: chronic Qualified Code(s): M25.561 - Pain in right knee; M25.562 - Pain in left knee; G89.29 - Other chronic pain Plan Patient is status post left adductor canal saphenous nerve block, ultrasound-guided. Patient tolerated procedure well and was discharged home in stable condition with discharge instructions. All questions were answered. We will follow-up in two weeks via telephone or in clinic to assess response to therapy. A follow-up appointment was made during today's visit. Scribed for Dr. Spann by Gregorio Willoughby, medical science liaison, on 07/17/2023. I, Dr. Spann, have personally reviewed and agree with the information entered by the scribe. Coding Level of Care Code Procedure Only Diagnoses Chronic pain of both knees M25.561; M25.562; G89.29 Chronicity: chronic CPT Codes Nerve Block - Nerve Block 7: 78746 - Femoral (adductor injection) ([id number])
== END 2023-07-17 11:32 | disposition home or self-care (01) ==
PROVIDERS: Visit Provider Internal Medicine
DX: M25.562 Pain in left knee (principal); G89.29 Other chronic pain
CPT/HCPCS: 64450; 76942

== ENCOUNTER → 2023-07-17 10:59 | Outpatient (BNVA) | payer MEDICAID, SELFPAY | PROVIDERS: Visit Provider Internal Medicine | DX: G89.29 Other chronic pain (principal); M25.562 Pain in left knee; M25.561 Pain in right knee | CPT/HCPCS: 64450 ==

== ENCOUNTER 2023-07-24 12:38 | Outpatient (REF) | payer MEDICAID, SELFPAY ==
[2023-07-24 16:37] LABS: Alanine Aminotransferase 27 U/L (0-31); Albumin Level 4.4 g/dL (3.5-5.0); Alkaline Phosphatase 98 U/L (39-117); Anion Gap 18 (12-20); Aspartate Amino Transferase 24 U/L (5-31); Bilirubin Direct 0.3 mg/dL (0.0-0.5); Bilirubin Total 0.8 mg/dL (0.0-1.0); Blood Urea Nitrogen 25 mg/dL (9-16); Calcium 9.7 mg/dL (8.4-10.2); Carbon Dioxide 22 mmol/L (22-29); Chloride 105 mmol/L (96-108); Cholesterol 240 mg/dL (<200); Estimated Glomerular Filt Rate 40; Glucose Random 118 mg/dL (60-115); HDL Cholesterol 44 mg/dL (>40); LDL Cholesterol Calculated 122 mg/dL (<100); Magnesium 1.3 mg/dL (1.6-2.6); Potassium 3.6 mmol/L (3.3-5.1); Sodium 141 mmol/L (135-145); Total Protein 7.9 g/dL (6.5-8.0); Triglycerides 370 mg/dL (<150)
[2023-07-24 16:46] LABS: Creatinine Urine 476.64 mg/dL; Microalbum/Creatinine Ratio Ur 6.7 ug/mg cr (<30)
[2023-07-24 16:47] LABS: TSH reflex Free T4 1.31 uIU/mL (0.32-4.0)
[2023-07-24 16:52] LABS: Vitamin B12 437 pg/mL (200-900)
[2023-07-27 03:26] LABS: Syphilis Screen Nonreactive (Nonreactive)
[2023-07-27 03:45] LABS: HIV AB/AG Nonreactive (Nonreactive); HIV Num 1 0.04 S/CO (0.00-0.99); ~HepC Num1 0.03 S/CO (0.00-0.79); ~Hepatitis C Antibody Nonreactive (Nonreactive)
== END 2023-07-24 12:39 | disposition home or self-care (01) ==
LOC: HO.HHCL 12:38
PROVIDERS: Visit Provider Family Medicine
DX: R74.01 Elevation of levels of liver transaminase levels (principal); N18.31 Chronic kidney disease, stage 3a; F10.10 Alcohol abuse, uncomplicated; G62.9 Polyneuropathy, unspecified
CPT/HCPCS: 36415; 80048; 80061; 80076; 82043; 82570; 82607; 83735; 84443; 86780; 86803; 87389

== ENCOUNTER 2023-07-27 01:17 | Emergency (ER) | payer MEDICAID, SELFPAY ==
--- NOTE | 2023-07-27 | ECG_ITS ---
Test Reason : CP Blood Pressure : / mmHG Vent. Rate : 084 BPM Atrial Rate : 084 BPM P-R Int : 194 ms QRS Dur : 074 ms QT Int : 392 ms P-R-T Axes : 062 -01 073 degrees QTc Int : 463 ms Normal sinus rhythm Minimal voltage criteria for LVH, may be normal variant ( R in aVL ) Inferior infarct , age undetermined Abnormal ECG When compared with ECG of 05-JUN-2023 11:20, No significant change was found Referred By: Generic ED Physician Electronically Signed By:DONAVAN LOZANO
[2023-07-27 01:19] VITALS: BP 130/83; PULSE 92; RESP 16; TEMP 36.2; O2SAT 99; BMI 25.5
[2023-07-27 01:43] VITALS: BP 128/78; PULSE 93; RESP 18; TEMP 36.9; O2SAT 98
[2023-07-27 01:43] LABS: Basophils Absolute Auto 0.1 X10*3/uL (0.0-0.2); Basophils Percent Auto 0.5 % (0-2); Eosinophils Absolute Auto 0.2 X10*3/uL (0.0-0.4); Eosinophils Percent Auto 1.9 % (0-4); Hematocrit 29.8 % (37.0-47.0); Hemoglobin 9.9 g/dl (12.0-16.0); Imm Gran Abs Auto 0.04 X10*3/uL (0.00-0.03); Imm Gran Pct Auto 0.4 % (0.0-0.4); Lymphocytes Absolute Auto 2.7 X10*3/uL (1.2-4.9); Lymphocytes Percent Auto 24.1 % (20-40); MANUAL DIFF FLAG NO; Mean Corpuscular HGB Conc 33.2 g/dl (31.0-35.0); Mean Corpuscular Hemoglobin 31.2 pg (27.0-33.0); Mean Platelet Volume 10.3 fL (9.4-12.3); Monocytes Absolute Auto 0.8 X10*3/uL (0.1-1.2); Monocytes Percent Auto 6.8 % (2-11); Neutrophils Absolute Auto 7.5 x10*3/uL (2.0-8.3); Neutrophils Percent Auto 66.3 % (45-73); Platelet Count 263 X10*3/uL (160-400); Red Blood Count 3.17 X10*6/uL (4.20-5.50); Red Cell Distribution Width 13.6 % (11.0-16.0); White Blood Count 11.3 X10*3/uL (4.8-10.8)
--- NOTE | 2023-07-27 01:44 | MHC.EDTECH ---
THIS PCT JUST ASSUMED CARE OF PT ,VITALS SIGN TAKEN ,PT WAS HOOKED UP TO BROOM STITCHER ,WARM BLANKET GIVEN JULIO CESAR KOTHARI IN ROOM PUTTING IN IV ,PT PARTNER AT BEDSIDE ,WILL CONTINUE TO MONITOR .
[2023-07-27] MEDS: Magnesium Sulfate/H2O 2 GM/50 ML PIGGYBACK IV (01:49)
[2023-07-27 01:51] VITALS: PULSE 90
[2023-07-27 01:58] LABS: Alanine Aminotransferase 20 U/L (0-31); Alkaline Phosphatase 91 U/L (39-117); Anion Gap 17 (12-20); Aspartate Amino Transferase 18 U/L (5-31); Bilirubin Total 0.2 mg/dL (0.0-1.0); Blood Urea Nitrogen 27 mg/dL (9-16); Carbon Dioxide 21 mmol/L (22-29); Chloride 108 mmol/L (96-108); Creatinine Clr Calc Pharmacy 65.5; Estimated Glomerular Filt Rate 53; Glucose Random 123 mg/dL (60-115); Potassium 3.1 mmol/L (3.3-5.1); Sodium 143 mmol/L (135-145); Total Protein 7.2 g/dL (6.5-8.0)
[2023-07-27 02:02] LABS: Troponin-I High Sensitivity 5.1 ng/L (<3.5-17.0)
--- NOTE | 2023-07-27 02:05 | ED.CHESTPAIN ---
HPI - Chest Pain General Chief Complaint: Chest Pain Stated Complaint: abnormal labs on Thursday, following up w/ palpation Time Seen by Provider: 07/27/23 01:41 Source: patient and old records reviewed Mode of arrival: ambulatory Limitations: no limitations History of Present Illness HPI narrative: 47 yo female with hx of anemia, chest pain, arthritis, poorlyl controlled HTN, elevated troponins, hypomagnesemia/hypokalemia who comes in with c/o magnesium low on Thursday and she was told to come to ED but didn't. She admits to not taking her PM magnesium or medications. Decided to come tonight as she had palpitations all day and then chest tightness all week but toneri had sharp pain in chest not related to breathing so she decided to come in. She feels fine now but notes her labs are usually off MD complaint: chest pain Pertinent past history: other (chest pain, HTN, lyte abnormality) Onset (ago): week(s) (1) Timing of current episode: constant Prior episodes: Yes Onset: during rest and during exertion Pain location: substernal Pain radiation: none Severity: moderate Quality: tightness and sharp Relieving factors: nothing Exacerbating factors: exertion and movement Context: non compliance with medication Associated symptoms: dyspnea Treatment prior to arrival: none Related Data Home Medications Medication Instructions Recorded Confirmed folic acid 1 mg tablet 1 tab PO DAILY 09/30/21 06/05/23 omeprazole 20 mg capsule,delayed 1 cap PO DAILY@0630 09/30/21 06/05/23 release thiamine HCl (vitamin B1) 100 mg 1 tab PO DAILY 09/30/21 06/05/23 tablet lisinopril 40 mg tablet 40 mg PO QAM 10/15/21 06/05/23 acetaminophen 500 mg tablet 1 tab PO Q6-8H PRN fever 06/04/22 06/05/23 carvedilol 3.125 mg tablet 1 tab PO BID 06/04/22 06/05/23 chlorthalidone 25 mg tablet 1 tab PO DAILY 06/04/22 06/05/23 cholecalciferol (vitamin D3) 25 1 cap PO QAM 06/04/22 06/05/23 mcg (1,000 unit) capsule (Vitamin D3) docusate sodium 100 mg capsule 1 cap PO BID PRN Constipation 06/04/22 06/05/23 multivitamin-ferrous 1 tab PO DAILY 06/04/22 06/05/23 fumarate-folic acid 18 mg-400 mcg tablet (Certavite-Antioxidant) cyclobenzaprine 5 mg tablet 5 mg PO TID PRN Muscle Spasm 06/05/23 06/05/23 Previous Rx's Medication Instructions Recorded ACL defiance brace #1 ea 07/29/21 albuterol sulfate 90 mcg/actuation 2 puff inhalation Q4-6H PRN 09/12/21 aerosol inhaler shortness of breath or wheezing #8.5 grams magnesium oxide 400 mg (241.3 mg 400 mg PO BIDPC 30 days #60 tabs 10/02/21 magnesium) tablet lidocaine 5 % topical patch 1 patch topical DAILY PRN pain #60 06/22/23 ea Allergies Allergy/AdvReac Type Severity Reaction Status Date / Time amoxicillin [AMOXICILLIN] Allergy Intermediate rash, Verified 06/22/23 09:29 rash/itching Sulfa (Sulfonamide Allergy Intermediate rash/itchin Verified 06/22/23 09:29 Antibiotics) g sulfamethoxazole Allergy Intermediate RASH Verified 06/22/23 09:29 [From BACTRIM] trimethoprim [From BACTRIM] Allergy Intermediate RASH Verified 06/22/23 09:29 hydrocodone [Hydrocodone] Allergy Mild ITCH Verified 06/22/23 09:29 ibuprofen [From Motrin] Allergy Mild UPSET Verified 06/22/23 09:29 STOMACH latex [Latex] Allergy Mild ITCH Verified 06/22/23 09:29 Review of Systems Review of Systems: Constitutional : No Fever, No Chills ENT/Mouth : No sore throat, No Rhinorrhea, No Swallowing Difficulty Eyes: No Eye Pain, No Swelling, No Redness Cardiovascular : pos Chest Pain, positive SOB, No Orthopnea, no Edema, pos palpitations Respiratory : No Cough, No Sputum, No Wheezing, positive dyspnea Gastrointestinal : No Nausea, No Vomiting, No Diarrhea, No abdominal Pain, No Hematochezia, No Melena Genitourinary : No Dysuria, No Urinary Frequency, No Hematuria Musculoskeletal : No joint pain, No Myalgias Skin : No Skin Lesions, No rash Neuro : No Weakness, No Numbness, No Dizziness, No Headache Psych : No Anxiety/Panic, No Depression All other systems reviewed and are negative [facility] Past Medical History Attestation statement: The following information was validated with the patient. Source: old records reviewed Medical History Depression Anxiety and depression Lower back pain History of COVID-19 Uncontrolled hypertension Panic attack H/O ETOH abuse Anxiety History of low potassium Breast cancer Hypertension Surgical History History of carpal tunnel release Hx of tubal ligation History of breast lump/mass excision H/O: hysterectomy Family History Family History Mother Heart disease Alzheimers disease Social History Social History Household Members: Other Housing: Apartment Do you presently have visiting nurse or other home services: No Alcohol intake: current Alcohol intake frequency: 3 or more drinks per day Alcohol type: hard liquor Patient Tobacco Use Status: Current everyday Tobacco user Tobacco use type: Cigarette Cigarettes Per Day: 10 Smoked in Last 30 Days: Yes Second Hand Smoke Exposure: Yes Use of substances other than those prescribed or required for medical reasons: No Advance Directives: Yes Advance Directives on File: Yes Advance Directives Date on File: 02/11/22 Patient : No service: No Current occupational status: disabled Physical Exam Vital Signs: Vital Signs: Last Vital Signs Temp 98.5 F 07/27/23 01:43 Pulse 93 07/27/23 01:43 Resp 18 07/27/23 01:43 BP 128/78 07/27/23 01:43 Pulse Ox 98 07/27/23 01:43 O2 Del Method Room Air 07/27/23 01:43 BMI result Body Mass Index 25.5 Appearance: Alert. Oriented X3. No acute distress. Eyes: Pupils equal, round and reactive to light. ENT: Pharynx normal. Neck: Normal inspection. Neck supple. CVS: Normal heart rate and rhythm. Pulses normal. Respiratory: No respiratory distress. Breath sounds normal. Abdomen: Soft and nontender. Skin: Skin warm and dry. Normal skin color. Normal skin turgor. Extremities: No lower extremity edema. No calf ttp Neuro: Oriented X 3. No motor deficit. No sensory deficit. Course Course Course Narrative: no complaints doing well stable for DC Medications Administered Discontinued Medications Generic Name Dose Route Start Last Admin Trade Name Freq PRN Reason Stop Dose Admin Magnesium Sulfate 2 gm in 50 mls @ 25 mls/hr 07/27/23 01:39 07/27/23 03:57 Magnesium Sulfate/H2o IV 07/27/23 03:38 Infused ONCE ONE Infusion Potassium Chloride 10 meq in 100 mls @ 100 mls/hr 07/27/23 02:05 07/27/23 03:57 Potassium Chloride/H20 IV 07/27/23 03:04 Infused ONCE ONE Infusion Potassium Chloride 40 meq 07/27/23 02:05 07/27/23 02:35 Potassium Chloride Packet 20 Meq Packet PO 07/27/23 02:06 40 meq ONCE ONE Administration Medical Decision Making Medical Decision Making MDM Narrative: 47 yo female with hx of anemia, chest pain, arthritis, poorlyl controlled HTN, elevated troponins, hypomagnesemia here with c/o having low magnesium on Thursday 1.3 and told to come to ED but she did not - has had chest tightness all week tonight felt palpitations and sharp stabbing pain so she came to the ED. She denies vomiting, diarrhea. She notes she always had pain and feels [place]. She has hx of non-compliance and does not follow up at times - she admits to not taking her afternoon meds. At this time will repeat labs, troponin x 1 given pain all day, EKG, replete magnesium and K, she is PERC negative, no distress watching videos on phone and distal pulses intact doubt dissection. Differential Diagnosis Differential Diagnoses: The differential diagnosis associated with the presentation includes lyte abnormality, noncompliance, chronic chest pain. Admission/Observation Consideration of admission/observation: Escalation of care including admission/observation considered repleted labs, trop flat at this time can be managed as outpatient has oral lytes at home Lab Data [facility] Lab Attestation statement: I reviewed the patient's lab results. K and magnesium being repleted - trop lowest she has been in the past 07/27/23 01:38 07/27/23 01:38 Labs: Lab Results 07/27/23 Range/Units 01:38 WBC 11.3 H (4.8-10.8) X10*3/uL RBC 3.17 L (4.20-5.50) X10*6/uL Hgb 9.9 L (12.0-16.0) g/dl Hct 29.8 L (37.0-47.0) % MCV 94.0 (80.0-98.0) fL MCH 31.2 (27.0-33.0) pg MCHC 33.2 (31.0-35.0) g/dl RDW 13.6 (11.0-16.0) % Plt Count 263 (160-400) X10*3/uL MPV 10.3 (9.4-12.3) fL Immature Gran % (Auto) 0.4 (0.0-0.4) % Neut % (Auto) 66.3 (45-73) % Lymph % (Auto) 24.1 (20-40) % Dickinson % (Auto) 6.8 (2-11) % Eos % (Auto) 1.9 (0-4) % Baso % (Auto) 0.5 (0-2) % Lymph # (Auto) 2.7 (1.2-4.9) X10*3/uL Dickinson # (Auto) 0.8 (0.1-1.2) X10*3/uL Eos # (Auto) 0.2 (0.0-0.4) X10*3/uL Baso # (Auto) 0.1 (0.0-0.2) X10*3/uL Abs Immat Gran (auto) 0.04 H (0.00-0.03) X10*3/uL Absolute Neuts (auto) 7.5 (2.0-8.3) x10*3/uL Absolute Nucleated RBC 0.000 (0.0-0.012) X10*3/uL Nucleated RBC % (auto) 0.0 (0.0-0.2) /100WBC Sodium 143 (135-145) mmol/L Potassium 3.1 L (3.3-5.1) mmol/L Chloride 108 (96-108) mmol/L Carbon Dioxide 21 L (22-29) mmol/L Anion Gap 17 (12-20) BUN 27 H (9-16) mg/dL Creatinine 1.09 (0.5-1.4) mg/dL Estim Creat Clear Calc 65.5 Estimated GFR 53 Random Glucose 123 H (60-115) mg/dL Calcium 9.0 D (8.4-10.2) mg/dL Magnesium 1.4 L* (1.6-2.6) mg/dL Total Bilirubin 0.2 (0.0-1.0) mg/dL AST 18 (5-31) U/L ALT 20 (0-31) U/L Alkaline Phosphatase 91 (39-117) U/L Troponin I High Sens 5.1 D (<3.5-17.0) ng/L Total Protein 7.2 (6.5-8.0) g/dL Albumin 4.0 (3.5-5.0) g/dL Ethyl Alcohol < 10 mg/dL Independent Interpretation I performed an independent interpretation of an: EKG Interpretation: Rate: 84 Rhythm: NSR [place]: left, LVH Normal P waves. Normal EDWIN. Normal QRS complex. ST T wave : no AUDI, inverted t wave aVL, qTC: normal prior studies: no sig change from priors q waves in inf leads in past The study has been interpreted contemporaneously by me. . External Record Review External record reviewed: Inpatient record Prescription Management I considered prescription management with: Other (has lytes at home to take already ) Social Determinants Patient?s care significantly limited by Social Determinants of Health including: Other Social Determinant of Health (poor compliance and follow up) Critical Care Time Critical Care Time Critical Care Time: Yes Total Critical Care Time: 35 Attestation: repletion of IV magnesium and IV Potassium to prevent life threatening cardiac arrythmias I attest to this time spent taking care of the patient Discharge Plan Discharge Clinical Impression: Hypomagnesemia, Acute hypokalemia Chest pain Qualifiers: Chest pain type: unspecified Qualified Code(s): R07.9 - Chest pain, unspecified Patient Disposition: Home, Self-Care Instructions: Chest Pain (ED), Hypokalemia (ED), Hypomagnesemia (ED) Additional Instructions: return for worsening pain, vomiting, cramps, difficulty breathing, fainting or any other concerns. please talk to your doctor today as planned. you should follow up with cardiology it looks as though you have not completed your total work up for stress test in the past. take your medications as prescribed. Prescriptions: No Action (DME) ACL defiance brace See Rx Instructions .ROUTE .MEDSUPPLY Qty: 1 0RF Rx Instructions: n/a albuterol sulfate 90 mcg/actuation HFA aerosol inhaler 2 puff inhalation Q4-6H PRN (Reason: shortness of breath or wheezing) Qty: 8.5 0RF thiamine HCl (vitamin B1) 100 mg tablet 1 tab PO DAILY omeprazole 20 mg capsule,delayed release(DR/EC) 1 cap PO DAILY@0630 folic acid 1 mg tablet 1 tab PO DAILY magnesium oxide 400 mg (241.3 mg magnesium) Tablet 400 mg PO BIDPC 30 Days Qty: 60 0RF chlorthalidone 25 mg tablet 1 tab PO DAILY carvedilol 3.125 mg tablet 1 tab PO BID docusate sodium 100 mg capsule 1 cap PO BID PRN (Reason: Constipation) cholecalciferol (vitamin D3) [Vitamin D3] 25 mcg (1,000 unit) capsule 1 cap PO QAM Certavite-Antioxidant 18-400 mg-mcg tablet 1 tab PO DAILY acetaminophen 500 mg tablet 1 tab PO Q6-8H PRN (Reason: fever) cyclobenzaprine 5 mg tablet 5 mg PO TID PRN (Reason: Muscle Spasm) lisinopril 40 mg tablet 40 mg PO QAM lidocaine 5 % adhesive patch,medicated 1 patch topical DAILY PRN (Reason: pain) Qty: 60 3RF Rx Instructions: leave on most painful area for up to 12 hrs Interventions: ED Discharge Assessment Last Done: 07/27/23 04:02 Discharge Date/Time: 07/27/23 04:02
[2023-07-27 02:17] LABS: Ethanol < 10 mg/dL
[2023-07-27 02:18] LABS: Magnesium 1.4 mg/dL (1.6-2.6)
[2023-07-27] MEDS: Potassium Chloride Packet 20 MEQ PACKET 40 MEQ PO (02:35)
[2023-07-27] MEDS: Potassium Chloride/H20 10 MEQ/100 ML PIGGYBACK 100 MEQ IV (02:36)
== END 2023-07-27 04:02 | disposition home or self-care (01) ==
PROVIDERS: Emergency Provider Emergency Medicine; PCP Family Medicine
DX: R07.9 Chest pain, unspecified (principal); E83.42 Hypomagnesemia; E87.6 Hypokalemia; I10 Essential (primary) hypertension; F17.210 Nicotine dependence, cigarettes, uncomplicated; Z79.899 Other long term (current) drug therapy
CPT/HCPCS: 36415; 80053; 80307; 83735; 84484; 85025; 93005; 96365; 96366; 96375; 99284; 99285; J3475

== ENCOUNTER 2023-07-31 11:20 | Outpatient (AMB) | payer MEDICAID, SELFPAY ==
--- NOTE | 2023-07-31 11:23 | A.OFFVIS_ITS ---
Intake Vital Signs 07/31/23 11:24 Height 5 ft 7 in Weight 163 lb BMI 25.5 BP 132/84 Blood Pressure Location Lt brachial Position Sitting Respiration 14 Pulse 93 Pulse Source Pulse Oximeter Pulse Oximetry (%) 100 Oxygen Delivery Method Room Air Intake Visit Reasons: right SNB at adductor canal Allergies amoxicillin [AMOXICILLIN] Allergy (Intermediate, Verified 08/04/23 09:01) rash, rash/itching Sulfa (Sulfonamide Antibiotics) Allergy (Intermediate, Verified 08/04/23 09:01) rash/itching sulfamethoxazole [From BACTRIM] Allergy (Intermediate, Verified 08/04/23 09:01) RASH trimethoprim [From BACTRIM] Allergy (Intermediate, Verified 08/04/23 09:01) RASH hydrocodone [Hydrocodone] Allergy (Mild, Verified 08/04/23 09:01) ITCH ibuprofen [From Motrin] Allergy (Mild, Verified 08/04/23 09:01) UPSET STOMACH latex [Latex] Allergy (Mild, Verified 08/04/23 09:01) ITCH HPI right SNB at adductor canal HPI Details 47-year-old female who presents today to the office for a right SNB at adductor canal. Denies any recent cough, cold, infection, fever or other significant changes in medical history since last office visit. The patient reports 90% relief following the injection on the other side for 3 days. She states that her pain relapsed after three days. Past procedures: 07/17/23: Left adductor canal saphenous nerve block, ultrasound-guided: 90% relief for three days. [facility] Medical History Depression Anxiety and depression Lower back pain History of COVID-19 Uncontrolled hypertension Panic attack H/O ETOH abuse Anxiety History of low potassium Breast cancer Hypertension Surgical History History of carpal tunnel release Hx of tubal ligation History of breast lump/mass excision H/O: hysterectomy Family History Mother Heart disease Alzheimers disease Social History (Updated 08/04/23 @ 09:00 by Marilynn Coulter) Household Members: Other Housing: Apartment Do you presently have visiting nurse or other home services: No Alcohol intake: current Alcohol intake frequency: 3 or more drinks per day Alcohol type: hard liquor Patient Tobacco Use Status: Current everyday Tobacco user Tobacco use type: Cigarette Second Hand Smoke Exposure: Yes Advance Directives Date on File: 02/11/22 service: No Current occupational status: disabled Review of Systems Const All systems reviewed & are unremarkable except as noted in HPI and below Physical Exam Vital Signs: Last Vital Signs Pulse 93 07/31/23 11:24 Resp 14 07/31/23 11:24 BP 132/84 07/31/23 11:24 Pulse Ox 100 07/31/23 11:24 Oxygen Delivery Method Room Air 07/31/23 11:24 BMI result Body Mass Index 25.5 General: Appears afebrile. Alert and oriented. Mood and affect appropriate. Follows and participates in conversation appropriately. Respiratory effort is unlabored. Able to transition from sit to stand unassisted. Ambulates with bilaterally normal heel strike and toe off. Office Procedures Nerve Block Details: Right adductor canal saphenous nerve block, ultrasound-guided After obtaining written consent, pre-procedure blood pressure and heart rate were stable and recorded in the nursing record. The patient was placed supine on the table. The medial thigh area overlying the adductor canal was widely prepped with chloraprep, allowed to dry and sterilely draped. Using ultrasound, the appropriate landmarks including the femoral artery and saphenous nerve were identified. A 21 gauge 80 mm echostim needle was advanced under sonographic guidance to the adductor canal. Aspiration was negative for heme and synovial fluid. 10 cc of lidocaine 1% was injected around the saphenous nerve. The needles were removed, skin cleansed and a sterile bandage was applied. The patient tolerated the procedure well and no complications were encountered. Following the procedure, the patient's vital signs and knee strength were stable. The patient was discharged home in good condition with post-procedural instructions. Time Out: Immediately prior to the procedure, the following was verbally confirmed that there is a signed consent form and that the correct patient, planned procedure, site and side are consistent with documentation and that necessary equipment and/or blood products are available prior to the start of the case. Complications: none EBL: <1 cc Note: An ultrasound image of the injection was taken and stored in the permanent record. 21360 - Femoral (adductor injection) (Right) Procedure code (CPT) selection complete Results Reviewed Results Reviewed: No imaging is available for review. Assessment & Plan Assessment & Plan (1) Bilateral knee pain: Code(s): M25.561 - Pain in right knee; M25.562 - Pain in left knee Qualifiers: Chronicity: chronic Qualified Code(s): M25.561 - Pain in right knee; M25.562 - Pain in left knee; G89.29 - Other chronic pain Plan Patient is status post right adductor canal saphenous nerve block, ultrasound- guided. Patient tolerated procedure well and was discharged home in stable condition with discharge instructions. All questions were answered. We will follow-up in two weeks via telephone or in clinic to assess response to therapy. A follow-up appointment was made during today's visit. Scribed for Dr. Spann by Gregorio Willoughby, medical specialist, on 07/31/2023. I, Dr. Spann, have personally reviewed and agree with the information entered by the scribe. Coding Level of Care Code Procedure Only Diagnoses Chronic pain of both knees M25.561; M25.562; G89.29 Chronicity: chronic CPT Codes Nerve Block - Nerve Block 7: 65771 - Femoral (adductor injection) ([id number])
[2023-07-31 11:24] VITALS: BP 132/84; PULSE 93; RESP 14; O2SAT 100; BMI 25.5
== END 2023-07-31 11:39 | disposition home or self-care (01) ==
PROVIDERS: Visit Provider Internal Medicine
DX: M25.561 Pain in right knee (principal)
CPT/HCPCS: 64450; 76942

== ENCOUNTER → 2023-07-31 11:20 | Outpatient (BNVA) | payer MEDICAID, SELFPAY | PROVIDERS: Visit Provider Internal Medicine | DX: M25.561 Pain in right knee (principal); M25.562 Pain in left knee; G89.29 Other chronic pain | CPT/HCPCS: 64450 ==

== ENCOUNTER → 2023-08-04 08:55 | Outpatient (BNV) | payer MEDICAID, SELFPAY | PROVIDERS: PCP Family Medicine; Visit Provider Internal Medicine Medical Oncology | DX: D64.9 Anemia, unspecified (principal); D05.11 Intraductal carcinoma in situ of right breast; Z91.199 Patient's noncompliance with other medical treatment and regimen due to unspecified reason | CPT/HCPCS: 99212; 99213; 99214 ==

== ENCOUNTER 2023-08-08 10:32 | Emergency (ER) | payer MEDICAID, SELFPAY ==
[2023-08-08 10:37] VITALS: BP 132/98; PULSE 100; RESP 19; TEMP 36.6; O2SAT 99; BMI 26.5
--- NOTE | 2023-08-08 11:48 | ED.LOWEXIN ---
HPI - Extremity Injury (Lower) General Chief Complaint: Extremity Injury, Lower Stated Complaint: L foot pain no injury Time Seen by Provider: 08/08/23 10:49 Source: patient Mode of arrival: ambulatory Limitations: no limitations History of Present Illness HPI Narrative: 47-year-old female who denies any medical history presents to the ER with complaints of we atraumatic left foot pain for 2 days. Patient reports that she has episodes of intermittent pain which is associated with swelling which has happened over the last few months. She denies any redness, fevers, chills, warmth, numbness, tingling. She has been trying to take Tylenol home with continued symptoms. Related Data Home Medications Medication Instructions Recorded Confirmed folic acid 1 mg tablet 1 tab PO DAILY 09/30/21 08/04/23 omeprazole 20 mg capsule,delayed 1 cap PO DAILY@0630 09/30/21 08/04/23 release thiamine HCl (vitamin B1) 100 mg 1 tab PO DAILY 09/30/21 08/04/23 tablet lisinopril 40 mg tablet 40 mg PO QAM 10/15/21 08/04/23 acetaminophen 500 mg tablet 1 tab PO Q6-8H PRN fever 06/04/22 08/04/23 carvedilol 3.125 mg tablet 1 tab PO BID 06/04/22 08/04/23 chlorthalidone 25 mg tablet 1 tab PO DAILY 06/04/22 08/04/23 cholecalciferol (vitamin D3) 25 1 cap PO QAM 06/04/22 08/04/23 mcg (1,000 unit) capsule (Vitamin D3) docusate sodium 100 mg capsule 1 cap PO BID PRN Constipation 06/04/22 08/04/23 multivitamin-ferrous 1 tab PO DAILY 06/04/22 08/04/23 fumarate-folic acid 18 mg-400 mcg tablet (Certavite-Antioxidant) cyclobenzaprine 5 mg tablet 5 mg PO TID PRN Muscle Spasm 06/05/23 08/04/23 Previous Rx's Medication Instructions Recorded ACL defiance brace #1 ea 07/29/21 albuterol sulfate 90 mcg/actuation 2 puff inhalation Q4-6H PRN 09/12/21 aerosol inhaler shortness of breath or wheezing #8.5 grams magnesium oxide 400 mg (241.3 mg 400 mg PO BIDPC 30 days #60 tabs 10/02/21 magnesium) tablet lidocaine 5 % topical patch 1 patch topical DAILY PRN pain #60 06/22/23 ea cyclobenzaprine 10 mg tablet 10 mg PO TID PRN muscle spasm #15 08/08/23 tabs naproxen 500 mg tablet 500 mg PO BID PRN pain #60 tabs 08/08/23 Allergies Allergy/AdvReac Type Severity Reaction Status Date / Time amoxicillin [AMOXICILLIN] Allergy Intermediate rash, Verified 08/08/23 10:37 rash/itching Sulfa (Sulfonamide Allergy Intermediate rash/itchin Verified 08/08/23 10:37 Antibiotics) g sulfamethoxazole Allergy Intermediate RASH Verified 08/08/23 10:37 [From BACTRIM] trimethoprim [From BACTRIM] Allergy Intermediate RASH Verified 08/08/23 10:37 hydrocodone [Hydrocodone] Allergy Mild ITCH Verified 08/08/23 10:37 ibuprofen [From Motrin] Allergy Mild UPSET Verified 08/08/23 10:37 STOMACH latex [Latex] Allergy Mild ITCH Verified 08/08/23 10:37 Review of Systems Review of Systems: Yes all other systems are reviewed and are negative Constitutional: Constitutional: Reports no additional constitutional complaints, Denies body ache(s), Denies chills, Denies fever(s), Denies headache(s) and Denies weakness Eyes: Eyes: Reports no additional eye complaints and Denies change in vision ENT: Reports system reviewed and no additional complaints, except as documented, Denies dizziness, Denies headache(s), Denies nasal congestion, Denies nasal discharge and Denies neck pain Cardiovascular: Cardiovascular: Reports no additional cardiovascular complaints, Denies chest pain, Denies leg edema and Denies dyspnea Respiratory: Respiratory: Reports no additional respiratory complaints, Denies cough and Denies dyspnea Gastrointestinal: Gastrointestinal: Reports no additional gastrointestinal complaints, Denies abdominal pain, Denies diarrhea, Denies nausea and Denies vomiting Genitourinary: Genitourinary: Reports no additional female genitourinary complaints and Denies urinary incontinence Musculoskeletal: Musculoskeletal: Reports no additional musculoskeletal complaints, Denies back pain, Reports arthralgias, Reports joint swelling, Denies limited range of motion, Denies neck pain, Denies numbness and Denies tingling Integumentary/Breasts: Skin/Breast: Reports system reviewed and no additional complaints, except as docu and Denies rash Neurologic: Reports system reviewed and no additional complaints, except as documented, Denies Abnormal speech present, Denies dizziness, Denies headache(s), Denies numbness, Denies tingling and Denies weakness PMFSH Past Medical History Attestation statement: The following information was validated with the patient. Source: old records reviewed and nursing notes reviewed Medical History Depression Anxiety and depression Lower back pain History of COVID-19 Uncontrolled hypertension Panic attack H/O ETOH abuse Anxiety History of low potassium Breast cancer Hypertension Surgical History History of carpal tunnel release Hx of tubal ligation History of breast lump/mass excision H/O: hysterectomy Family History Family History Mother Heart disease Alzheimers disease Social History Social History Household Members: Other Housing: Apartment Do you presently have visiting nurse or other home services: No Alcohol intake: current Alcohol intake frequency: 3 or more drinks per day Alcohol type: hard liquor Patient Tobacco Use Status: Current everyday Tobacco user Tobacco use type: Cigarette Second Hand Smoke Exposure: Yes Advance Directives: Yes Advance Directives on File: Yes Advance Directives Date on File: 02/11/22 service: No Current occupational status: disabled Physical Exam Vital Signs: Vital Signs: Last Vital Signs Temp 98 F 08/08/23 10:37 Pulse 100 08/08/23 10:37 Resp 19 08/08/23 10:37 BP 132/98 H 08/08/23 10:37 Pulse Ox 99 08/08/23 10:37 O2 Del Method Room Air 08/08/23 10:37 BMI result Body Mass Index 26.5 Const: General: cooperative, healthy appearing, comfortable and no acute distress Orientation/consciousness: patient oriented x3 Limitations: no limitations HEENT: Head: Yes normal to inspection Ears: hearing grossly normal bilaterally General nose exam: Normal external nose present Face and sinus: Yes normal facial exam Mouth: Normal oral and palatal mucosa present Throat: Yes posterior oropharynx normal Eyes: General: appearance normal, both eyes and all related structures Pupils: Equal, round and reactive pupils present Neck: Neck: Yes normal visual inspection Chest: Chest palpation & inspection: normal inspection of the chest Resp: Effort & Inspection: normal respiratory effort Auscultation: clear to auscultation bilaterally Cardio: Rate: regular rate Rhythm: regular rhythm Peripheral pulses: Peripheral pulses 2+ throughout GI: Inspection: Yes normal to inspection Palpation (GI): Soft to palpation and nontender Auscultation: normal bowel sounds Back/Spine/Pelvis: Thoracic/Lumbar Spine: thoracic and lumbar spine normal to inspection Skin: General skin exam: no rashes or lesions noted Neuro: General: patient oriented x3, no focal motor deficits and normal sensation to monofilament Cranial nerves: Yes Equal, round and reactive pupils present Cognition (Neuro): normal cognition Speech: No Abnormal speech present Gait exam (Neuro): Normal gait present Motor exam (neuro): 5/5 motor strength present throughout Extrem: Other: There is tenderness over the left dorsal foot with mild swelling. There is no warmth or erythema. There is full active and passive range of motion of the left foot and ankle. There are normal DP and PT pulses. Normal distal sensation. No posterior calf or ankle pain. Negative Car sign. General: Yes normal to inspection Course Course Course Narrative: x-ray show a calcaneal heel spur the patient has been aware about. her pain however and swelling seems to be more over the dorsal aspect. ?of OA Low concern for septic arthritis, gout, cellulitis based on clinical exam. Patient will be discharged home with NSAIDs, muscle relaxants, Zay wrap and crutches recommendation to follow-up primary care for any continued symptoms. Reviewed worrisome signs and symptoms of when to return to the emergency room. Comfortable plan for discharge home. Medications Administered Discontinued Medications Generic Name Dose Route Start Last Admin Trade Name Freq PRN Reason Stop Dose Admin Ketorolac Tromethamine 30 mg 08/08/23 11:48 08/08/23 11:54 Ketorolac Tromethamine 30 Mg/Ml Vial IM 08/08/23 11:49 30 mg ONCE ONE Administration Medical Decision Making Medical Decision Making [facility] Narrative: 47-year-old female who denies any medical history presents to the ER with complaints of we atraumatic left foot pain for 2 days. Patient reports that she has episodes of intermittent pain which is associated with swelling which has happened over the last few months. She denies any redness, fevers, chills, warmth, numbness, tingling. She has been trying to take Tylenol home with continued symptoms. There is tenderness over the left dorsal foot with mild swelling. There is no warmth or erythema. There is full active and passive range of motion of the left foot and ankle. There are normal DP and PT pulses. Normal distal sensation. No posterior calf or ankle pain. Negative Car sign. Plan is to obtain x-ray, provide analgesia Differential Diagnosis Differential Diagnoses: The differential diagnosis associated with the presentation includes low concern for fracture, sprain, strain consider osteoarthritis low concern for septic arthritis with full range of motion Admission/Observation Consideration of admission/observation: Escalation of care including admission/observation considered Low concern for septic arthritis/ dislocation, fracture, vascular injury requiring labs, further imaging, orthopedic emergent consultation and for admission Independent Interpretation I performed an independent interpretation of an: Plain X-Ray Interpretation: I independently reviewed the x-ray and agree with the radiology report Radiology Impression Discussion of test interpretation with radiology: I have reviewed the radiologist's reading. Radiologist Impression: [address] [address] XRay Report Signed Patient: Azra Cast MR#: [id number] : 1975 Acct:[id number] Age/Sex: 47 / F ADM Date: 08/08/23 Loc: .ED Attending Dr: Ordering Physician: Boby Dykes MD Date of Service: 08/08/23 Procedure(s): XR foot LT min 3V Accession Number(s): [id number] cc: Shereen Latham MD; Boby Dykes MD~ EXAMINATION: XR FOOT, LEFT CLINICAL INFORMATION: Pain, no trauma COMPARISON: Foot radiographs 04/23/2023 TECHNIQUE: AP, lateral, and oblique views of the left foot. FINDINGS: No acute fracture or dislocation. Joint spaces are maintained. Soft tissues are unremarkable. Plantar calcaneal spurring and Achilles tendon enthesopathy. XR/XR foot LT min 3V IMPRESSION: Plantar calcaneal spurring and Achilles tendon enthesopathy. No acute osseous abnormality. Tests considered The following testing was considered but not selected: Low concern for septic arthritis/ dislocation, fracture, vascular injury needing additional imaging,labs Prescription Management I considered prescription management with: Pain Medication Procedures Orthopedic Splinting/Casting Injury #1: Side: left Lower Extremity Injury Location: foot Lower Extremity Immobilizer: Zay wrap Other Orthopedic Equipment: crutches Discharge Plan Discharge Clinical Impression: Acute foot pain Patient Disposition: Home, Self-Care Instructions: Arthralgia (ED) Additional Instructions: apply heat or ice to the affected area gentle stretching see your doctor for any continued symptom take the medications as prescribed use the zay wrap/crutches as needed Prescriptions: New naproxen 500 mg tablet 500 mg PO BID PRN (Reason: pain) Qty: 60 0RF cyclobenzaprine 10 mg tablet 10 mg PO TID PRN (Reason: muscle spasm) Qty: 15 0RF No Action (DME) ACL defiance brace See Rx Instructions .ROUTE .MEDSUPPLY Qty: 1 0RF Rx Instructions: n/a albuterol sulfate 90 mcg/actuation HFA aerosol inhaler 2 puff inhalation Q4-6H PRN (Reason: shortness of breath or wheezing) Qty: 8.5 0RF thiamine HCl (vitamin B1) 100 mg tablet 1 tab PO DAILY omeprazole 20 mg capsule,delayed release(DR/EC) 1 cap PO DAILY@0630 folic acid 1 mg tablet 1 tab PO DAILY magnesium oxide 400 mg (241.3 mg magnesium) Tablet 400 mg PO BIDPC 30 Days Qty: 60 0RF chlorthalidone 25 mg tablet 1 tab PO DAILY carvedilol 3.125 mg tablet 1 tab PO BID docusate sodium 100 mg capsule 1 cap PO BID PRN (Reason: Constipation) cholecalciferol (vitamin D3) [Vitamin D3] 25 mcg (1,000 unit) capsule 1 cap PO QAM Certavite-Antioxidant 18-400 mg-mcg tablet 1 tab PO DAILY acetaminophen 500 mg tablet 1 tab PO Q6-8H PRN (Reason: fever) cyclobenzaprine 5 mg tablet 5 mg PO TID PRN (Reason: Muscle Spasm) lisinopril 40 mg tablet 40 mg PO QAM lidocaine 5 % adhesive patch,medicated 1 patch topical DAILY PRN (Reason: pain) Qty: 60 3RF Rx Instructions: leave on most painful area for up to 12 hrs Referrals: Shereen Latham MD [Primary Care Provider] - 5 days (for continued symptoms ) Interventions: ED Discharge Assessment Last Done: 08/08/23 12:25 Discharge Date/Time: 08/08/23 12:26
--- NOTE | 2023-08-08 11:56 | PC.NURSE ---
pt medicated per DEC for 10/10 left foot pain
== END 2023-08-08 12:26 | disposition home or self-care (01) ==
PROVIDERS: Emergency Provider Emergency Medicine Emergency Medical Services; PCP Family Medicine
DX: M79.672 Pain in left foot (principal); F17.210 Nicotine dependence, cigarettes, uncomplicated; D50.9 Iron deficiency anemia, unspecified; Z90.710 Acquired absence of both cervix and uterus; Z79.899 Other long term (current) drug therapy; C50.919 Malignant neoplasm of unspecified site of unspecified female breast
CPT/HCPCS: 73630; 96372; 99283; 99284; J1885

== ENCOUNTER 2023-08-24 12:33 | Outpatient (REF) | payer MEDICAID, SELFPAY ==
--- NOTE | ~2023-08-24 | XR_ITS ---
STUDY: Standing knee and right knee INDICATION: Right knee pain COMPARISON: 07/26/2021 TECHNIQUE: Standing knee and 2 view right knee FINDINGS: On standing knee view, left knee joint is slightly higher than the right. Tricompartment spurring identified. Bilateral mild medial knee joint narrowings. Mild right lateral knee and patellofemoral narrowings. Right suprapatellar effusion. Right suprapatellar calcifications. XR/XR knee RT 2V IMPRESSION: Bilateral degenerative type changes. Right suprapatellar effusion. Question right synovial osteochondromatosis.
--- NOTE | ~2023-08-24 | XR_ITS ---
STUDY: Standing knee and right knee INDICATION: Right knee pain COMPARISON: 07/26/2021 TECHNIQUE: Standing knee and 2 view right knee FINDINGS: On standing knee view, left knee joint is slightly higher than the right. Tricompartment spurring identified. Bilateral mild medial knee joint narrowings. Mild right lateral knee and patellofemoral narrowings. Right suprapatellar effusion. Right suprapatellar calcifications. XR/XR knee standing BI IMPRESSION: Bilateral degenerative type changes. Right suprapatellar effusion. Question right synovial osteochondromatosis.
== END 2023-08-24 12:34 | disposition home or self-care (01) ==
LOC: HO.HOSX 12:33
PROVIDERS: Visit Provider Orthopaedic Surgery
DX: M17.11 Unilateral primary osteoarthritis, right knee (principal); M17.32 Unilateral post-traumatic osteoarthritis, left knee; S83.512D Sprain of anterior cruciate ligament of left knee, subsequent encounter
CPT/HCPCS: 73560; 73565; 99212

== ENCOUNTER 2023-08-24 12:33 | Outpatient (AMB) | payer MEDICAID, SELFPAY ==
--- NOTE | 2023-08-24 12:39 | MHC.OFFVIS ---
Intake Intake Visit Reasons: OV-B/L knee injection-last injection 05/25/23 Intake Note: Azra is a 47 year old female who presents today for a follow up of her bilateral knee OA. Last seen and injected on 05/25/23, these injections were not helpful. She would like to discuss other treatment options as she has not foud relief from injections. Allergies amoxicillin [AMOXICILLIN] Allergy (Intermediate, Verified 08/08/23 10:37) rash, rash/itching Sulfa (Sulfonamide Antibiotics) Allergy (Intermediate, Verified 08/08/23 10:37) rash/itching sulfamethoxazole [From BACTRIM] Allergy (Intermediate, Verified 08/08/23 10:37) RASH trimethoprim [From BACTRIM] Allergy (Intermediate, Verified 08/08/23 10:37) RASH hydrocodone [Hydrocodone] Allergy (Mild, Verified 08/08/23 10:37) ITCH ibuprofen [From Motrin] Allergy (Mild, Verified 08/08/23 10:37) UPSET STOMACH latex [Latex] Allergy (Mild, Verified 08/08/23 10:37) ITCH HPI OV-B/L knee injection-last injection 05/25/23 HPI Details Azra is a 47 year old woman who presents to discuss her bilateral knee OA pain. She says she was unable to attend all of her PT appointments, and these appointments just caused her increased pain. She has been seen by Pain Management for saphenous nerve block trials, which were reported made her knees feel numb for ~2 days, and gave her some pain relief. She received bilateral knee injections on 05/25/23, which she says were not helpful. She continues to complain of pain with daily activity, worse with walking or using stairs. She says last week she had worsening swelling in her right knee, and says her knee felt hot . She denies every feeling this in her knee before. She has pain at night, and says she wakes up at times if she twists her knee wrong. She says she lives on the 4th floor and stairs are particularly painful. She tries to avoid leaving her apartment too often due to her pain. 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 She feels her muscles are deteriorating due to lack of use, which she finds upsetting. She says she really wants to have surgery, as she is limited in her daily function and she is unable to do the things she wants. She says her mental health is suffering from being stuck at home. She has a Hx of left knee in ~1999 to repair a torn ACL. She had an MRI of her knees several years ago, but could not remember exactly when. If appears this was done in 03/2020. She says she has occasional numbness and tingling in her legs, but this is not often. [facility] Medical History Depression Anxiety and depression Lower back pain History of COVID-19 Uncontrolled hypertension Panic attack H/O ETOH abuse Anxiety History of low potassium Breast cancer Hypertension Surgical History History of carpal tunnel release Hx of tubal ligation History of breast lump/mass excision H/O: hysterectomy Family History Mother Heart disease Alzheimers disease Social History Household Members: Other Housing: Apartment Do you presently have visiting nurse or other home services: No Alcohol intake: current Alcohol intake frequency: 3 or more drinks per day Alcohol type: hard liquor Patient Tobacco Use Status: Current everyday Tobacco user Tobacco use type: Cigarette Second Hand Smoke Exposure: Yes Advance Directives Date on File: 02/11/22 service: No Current occupational status: disabled Review of Systems Const All systems reviewed & are unremarkable except as noted in HPI and below Physical Exam Const General: no acute distress, alert and awake Orientation/consciousness: patient oriented x3 HEENT Head: Yes normocephalic and Yes atraumatic Eyes EOM: EOMs intact bilaterally Resp Effort & Inspection: normal respiratory effort and able to speak in complete sentences Cardio Jugular venous distension: no JVD Skin General skin exam: turgor normal Rashes: no rashes Neuro General: patient oriented x3 Extrem Other: Bilateral Knee: TTP MJL Mild effusion Psych Appearance: grossly normal Affect: normal affect Attitude: cooperative Results Reviewed Results Reviewed: I personally reviewed relevant radiographs. Severe right knee post-traumatic OA and moderate to severe left knee OA Assessment & Plan Assessment & Plan (1) Osteoarthritis of right knee: Code(s): M17.11 - Unilateral primary osteoarthritis, right knee Plan: This is a 47 year old woman with moderate-severe bilateral knee OA, R>L, with a hx of left ACL reconstruction in 1999. She has pain with daily activity, is limited in her ADLs, and feels her QOL is diminished. She is unable to use stairs, stand for prolonged periods of time, or ambulate without pain. She has failed PT and is unable to take NSAIDs due to GI upset. She reports only days of relief from steroid injections in the past, and short term relief from a saphenous nerve block done by Pain Management last month. I discussed her diagnosis and treatment options. I recommend she continue to follow with Pain Management for treatment, including a nerve stimulator, strengthening exercises and activity modification. She may benefit from a TKA in the future but she would like to try conservative treatment options beforehand. I ordered PT to work on quad strengthening, and recommend she try and move to the ground floor of her apartment to minimize stair use. She will follow up in 3 months. (2) Post-traumatic osteoarthritis of left knee: Code(s): M17.32 - Unilateral post-traumatic osteoarthritis, left knee (3) Complete tear of anterior cruciate ligament of left knee: Code(s): S83.512A - Sprain of anterior cruciate ligament of left knee, initial encounter Plan Scribed for Anselmo Gates MD by Terrell Shafer, medical technical writer, on 08/24/23 at 1:35 PM, EST. Orders: Orders XR knee standing BI 08/24/23 M25.569 - Pain in unspecified knee XR knee RT 2V 08/24/23 M25.569 - Pain in unspecified knee Coding Level of Care Code Est Pt Level 4 (41170) Diagnoses Osteoarthritis of right knee M17.11 Post-traumatic osteoarthritis of left knee M17.32 Complete tear of anterior cruciate ligament of left knee S83.512A
== END 2023-08-24 13:40 | disposition home or self-care (01) ==
PROVIDERS: Visit Provider Orthopaedic Surgery
DX: M17.31 Unilateral post-traumatic osteoarthritis, right knee (principal); M17.12 Unilateral primary osteoarthritis, left knee; S83.512A Sprain of anterior cruciate ligament of left knee, initial encounter
CPT/HCPCS: 99213

== ENCOUNTER 2023-08-27 12:42 | Outpatient (REF) | payer MEDICAID, SELFPAY ==
--- NOTE | ~2023-08-27 | MM_ITS ---
EXAMINATION: MM SCREENING DIGITAL BREAST TOMOSYNTHESIS, LEFT CLINICAL INFORMATION: Screening. Asymptomatic. The patient is status post right mastectomy. COMPARISON: Mammography: This study is compared with prior exams dating back to 2017. TECHNIQUE: Digital breast tomosynthesis is performed in both the craniocaudal and mediolateral oblique views along with computer-aided detection (CAD). Synthesized 2D images are generated from the tomosynthesis. FINDINGS: There are scattered areas of fibroglandular density (ACR BI-RADS breast composition Category b). There are no significant masses, abnormal calcifications, or other abnormalities. MM/MM tomosynthesis screening LT IMPRESSION: No mammographic evidence of malignancy. ASSESSMENT: BI-RADS BI-RADS 1 - Negative RECOMMENDATION: Routine annual mammography screening. 1 year F/U This examination should not preclude the clinical evaluation of a suspicious palpable abnormality. This patient's information was entered into a reminder system with a target due date for their next mammogram.
== END 2023-08-27 12:43 | disposition home or self-care (01) ==
LOC: HO.MAMMO 12:42
PROVIDERS: Absent Provider Internal Medicine Medical Oncology; PCP Internal Medicine; Visit Provider Internal Medicine
DX: Z12.31 Encounter for screening mammogram for malignant neoplasm of breast (principal)
CPT/HCPCS: 77063; 77067

== ENCOUNTER → 2023-08-27 12:45 | Outpatient (BNV) | payer MEDICAID, SELFPAY | PROVIDERS: Absent Provider Internal Medicine Medical Oncology; PCP Internal Medicine; Visit Provider Radiology Diagnostic Radiology | DX: Z12.31 Encounter for screening mammogram for malignant neoplasm of breast (principal) | CPT/HCPCS: 77063; 77067 ==

== ENCOUNTER 2023-09-22 14:09 | Outpatient (REF) | payer MEDICAID, SELFPAY ==
[2023-09-22 16:10] LABS: MANUAL DIFF FLAG NO
[2023-09-22 16:12] LABS: Basophils Absolute Auto 0.1 X10*3/uL (0.0-0.2); Eosinophils Absolute Auto 0.2 X10*3/uL (0.0-0.4); Eosinophils Percent Auto 2.3 % (0-4); Hematocrit 33.4 % (37.0-47.0); Hemoglobin 10.7 g/dl (12.0-16.0); Imm Gran Abs Auto 0.03 X10*3/uL (0.00-0.03); Imm Gran Pct Auto 0.3 % (0.0-0.4); Lymphocytes Absolute Auto 2.5 X10*3/uL (1.2-4.9); Lymphocytes Percent Auto 25.4 % (20-40); Mean Corpuscular Hemoglobin 29.4 pg (27.0-33.0); Mean Corpuscular Volume 91.8 fL (80.0-98.0); Mean Platelet Volume 10.5 fL (9.4-12.3); Monocytes Absolute Auto 0.7 X10*3/uL (0.1-1.2); Monocytes Percent Auto 6.7 % (2-11); Neutrophils Absolute Auto 6.2 x10*3/uL (2.0-8.3); Neutrophils Percent Auto 64.3 % (45-73); Platelet Count 490 X10*3/uL (160-400); Red Blood Count 3.64 X10*6/uL (4.20-5.50); Red Cell Distribution Width 14.2 % (11.0-16.0); White Blood Count 9.7 X10*3/uL (4.8-10.8)
[2023-09-22 16:18] LABS: Estimated Average Glucose 123 mg/dL; Hemoglobin A1c % 5.9 % (<6.0)
[2023-09-22 16:29] LABS: Alanine Aminotransferase 25 U/L (0-31); Albumin Level 4.4 g/dL (3.5-5.0); Alkaline Phosphatase 100 U/L (39-117); Anion Gap 11 (12-20); Aspartate Amino Transferase 16 U/L (5-31); Bilirubin Direct < 0.2 mg/dL (0.0-0.5); Bilirubin Total 0.2 mg/dL (0.0-1.0); Blood Urea Nitrogen 20 mg/dL (9-16); Calcium 10.5 mg/dL (8.4-10.2); Carbon Dioxide 29 mmol/L (22-29); Chloride 106 mmol/L (96-108); Cholesterol 190 mg/dL (<200); Estimated Glomerular Filt Rate > 60; Glucose Random 103 mg/dL (60-115); HDL Cholesterol 31 mg/dL (>40); LDL Cholesterol Calculated 112 mg/dL (<100); Magnesium 1.7 mg/dL (1.6-2.6); Potassium 4.4 mmol/L (3.3-5.1); Sodium 142 mmol/L (135-145); Triglycerides 236 mg/dL (<150)
[2023-09-22 16:45] LABS: TSH reflex Free T4 0.67 uIU/mL (0.32-4.0); Vitamin D 25-OH Total 76.8 ng/mL (>30)
== END 2023-09-22 14:10 | disposition home or self-care (01) ==
LOC: HO.HHCL 14:09
PROVIDERS: Visit Provider Family Medicine
DX: E83.42 Hypomagnesemia (principal); R74.01 Elevation of levels of liver transaminase levels; E87.6 Hypokalemia; R53.82 Chronic fatigue, unspecified
CPT/HCPCS: 36415; 80048; 80061; 80076; 82306; 83036; 83735; 84443; 85025

== ENCOUNTER 2023-09-23 13:02 | Outpatient (REF) | payer MEDICAID, SELFPAY ==
--- NOTE | ~2023-09-23 | MM_ITS ---
EXAMINATION: BONE DENSITOMETRY CLINICAL INDICATION: Osteopenia. COMPARISON: Previous BD dated 09/08/2019 and baseline BD dated 03/13/2011. TECHNIQUE: Using a MIGSIF DXA System (software version: 13.1) manufactured by [employer], dual-energy x-ray absorptiometry was performed of the lumbar spine and left hip. The images are of good technical quality. Summary results are attached. FINDINGS: LEFT FEMUR, NECK: Current: BMD 1.072 g/cm2, Z-score 0.9, T-score 0.2, normal. Prior: BMD 1.022 g/cm2. Baseline: BMD 1.225 g/cm2. LEFT FEMUR, TOTAL: Current: BMD 1.084 g/cm2, Z-score 0.9, T-score 0.6, normal, 3.8% decrease from previous, 8.5% decrease from baseline (<5% change is not significant). Prior: BMD 1.127 g/cm2. Baseline: BMD 1.185 g/cm2. AP SPINE L1-L4: Current: BMD 1.076 g/cm2, Z-score -0.7, T-score -0.9, normal, 7.4% decrease from previous, 8.0% decrease from baseline (<5% change is not significant). Prior: BMD 1.162 g/cm2. Baseline: BMD 1.169 g/cm2. IDENTIFIED RISK FACTORS: Osteoporosis, kidney disease, current smoker, alcohol use, low calcium intake. Early menopause, secondary osteoporosis, hysterectomy. HISTORY OF FRACTURE: None listed. MEDICATIONS: Multivitamin. MM/XR DEXA axial skeleton IMPRESSION: 1. DIAGNOSIS: Normal bone density based on the lowest T-score value of -0.9 in the lumbar spine applying World Health Organization criteria. 2. 10-YEAR FRACTURE RISK PREDICTION, FRAX: According to the guidelines, FRAX calculation should only be performed on patients in the osteopenia bone density category. Therefore, FRAX was not performed on this patient. 3. Treatment Recommendations: NOF guidelines recommend consideration for treatment in postmenopausal women and men age 50 and older presenting with the following: -A hip or vertebral (clinical or morphometric) fracture. -T-score less than or equal to -2.5 at the femoral neck or spine after appropriate evaluation to exclude secondary causes. -Low bone mass at the hip or spine and a 10-year fracture probability by FRAX of greater than or equal to 3% for hip fracture or greater than or equal to 20% for major osteoporotic fracture based on the [place] adapted WHO algorithm. 4. Other Recommendations: All treatment decisions require clinical judgment and consideration of individual patient factors, including patient preferences, comorbidities, previous drug use, risk factors not captured in the FRAX model (e.g. frailty, falls, vitamin D deficiency, increased bone turnover, interval significant decline in bone density) and possible under or overestimation of fracture risk by FRAX. FUTURE SCAN RECOMMENDATION: People with diagnosed cases of osteoporosis or at high risk for fracture should have regular bone mineral density tests. For patients eligible for Medicare, routine testing is allowed once every 2 years. The testing frequency can be increased to one year for patients who have rapidly progressing disease, those who are receiving or discontinuing medical therapy to restore bone mass, or have additional risk factors.
--- NOTE | 2023-09-23 14:23 | EMG_ITS ---
Chief complaint: Left foot pain, bilateral knee pain, denies numbness and feet. History of alcohol use disorder, essential hypertension, gastroesophageal reflux disease. Reason for referral: Evaluate for neuropathy Referred by: Dr. Bhupinder Miner Procedure done: Bilateral lower extremity NCS/EMG Precautions and/or limitations: None The limb temperature was monitored continuously and remained between 32-36 degrees C during the performance of the NCS. Nerve Conduction Studies Anti Sensory Summary Table ?Stim Site NR Onset (ms) Norm Onset (ms) Peak (ms) Norm Peak (ms) O-P Amp (?V) Norm O-P Amp Site1 Site2 Delta-0 (ms) Dist (cm) Prashant (m/s) Norm Prashant (m/s) Left Sural Anti Sensory (Lat Mall) Calf ? 1.6 3.0 <4.0 10.7 >5.0 Calf Lat Mall 1.6 14.0 88 Right Sural Anti Sensory (Lat Mall) Calf ? 2.0 3.0 <4.0 11.3 >5.0 Calf Lat Mall 2.0 14.0 70 Motor Summary Table ?Stim Site NR Onset (ms) Norm Onset (ms) O-P Amp (mV) Norm O-P Amp iAmp (mV) Amp (1st) (%) Site1 Site2 Delta-0 (ms) Dist (cm) Prashant (m/s) Norm Prashant (m/s) Left Peroneal Motor (Ext Dig Brev) Ankle ? 3.8 <4.0 4.6 >2.5 5.7 100.0 Ankle Ext Dig Brev 3.8 0.0 B Fib ? 10.7 5.9 7.1 128.3 B Fib Ankle 6.9 34.5 50 >40 Poplt ? 11.4 5.7 7.1 123.9 Poplt B Fib 0.7 5.5 79 >40 Right Peroneal Motor (Ext Dig Brev) Ankle ? 3.4 <4.0 6.6 >2.5 8.0 100.0 Ankle Ext Dig Brev 3.4 0.0 B Fib ? 10.3 7.5 8.9 113.6 B Fib Ankle 6.9 33.5 49 >40 Poplt ? 11.2 7.4 8.7 112.1 Poplt B Fib 0.9 5.0 56 >40 Left Tibial Motor (Abd Sanchez Brev) Ankle ? 4.5 <5 6.4 >2.5 7.7 100.0 Ankle Abd Sanchez Brev 4.5 0.0 Knee ? 12.0 6.6 8.9 103.1 Knee Ankle 7.5 38.0 51 >40 Right Tibial Motor (Abd Sanchez Brev) Ankle ? 3.7 <5 3.6 >2.5 4.2 100.0 Ankle Abd Sanchez Brev 3.7 0.0 Knee ? 12.2 1.5 1.6 41.7 Knee Ankle 8.5 37.0 44 >40 EMG ?Side Muscle Nerve Root Ins Act Fibs Psw Amp Dur Poly Recrt Int Pat Comment Right AbdHallucis MedPlantar S1-2 Nml Nml Nml Nml Nml 0 Nml Complete Right AntTibialis Dp Br Peron L4-5 Nml Nml Nml Nml Nml 0 Nml Complete Right PostTibialis Tibial L5, S1 Nml Nml Nml Nml Nml 0 Nml Complete Right MedGastroc Tibial S1-2 Nml Nml Nml Nml Nml 0 Nml Complete Right VastusMed Femoral L2-4 Nml Nml Nml Nml Nml 0 Nml Complete Left AbdHallucis MedPlantar S1-2 Nml Nml Nml Nml Nml 0 Nml Complete Left AntTibialis Dp Br Peron L4-5 Nml Nml Nml Nml Nml 0 Nml Complete Left PostTibialis Tibial L5, S1 Nml Nml Nml Nml Nml 0 Nml Complete Left MedGastroc Tibial S1-2 Nml Nml Nml Nml Nml 0 Nml Complete Left VastusMed Femoral L2-4 Nml Nml Nml Nml Nml 0 Nml Complete Paraspinal EMG ?Side Muscle Nerve Root Ins Act Fibs Psw Comment Right Lumbar Upper Rami Nml Nml Nml Right Lumbar Mid Rami Nml Nml Nml Right Lumbar Lower Rami Nml Nml Nml Left Lumbar Upper Rami Nml Nml Nml Left Lumbar Mid Rami Nml Nml Nml Left Lumbar Lower Rami Nml Nml Nml FINDINGS: All motor and sensory nerves tested showed normal latencies, amplitudes and conduction velocities. Concentric needle EMG was performed in selected muscles of the bilateral lower extremity and lumbar paraspinals. Study did not reveal signs of electric abnormalities as shown in the table below. IMPRESSION: 1. This is a normal study. 2. There is no electrodiagnostic evidence for peroneal neuropathy, tibial neuropathy, lumbosacral plexopathy, lumbar radiculopathy, or peripheral neuropathy. Thank you for your kind referral. Micheline Santana MD, ESTHELA Board Certified, [place] Board [employer] and Rehabilitation (ABPMR) Board Certified, [place] Board of Electrodiagnostic Medicine (ABEM) CODIN [id number] x 2 MTDD
== END 2023-09-23 13:03 | disposition home or self-care (01) ==
LOC: HO.MAMMO 13:02
PROVIDERS: PCP Internal Medicine; Visit Provider Internal Medicine Medical Oncology
DX: Z13.820 Encounter for screening for osteoporosis (principal); M85.80 Other specified disorders of bone density and structure, unspecified site; M79.671 Pain in right foot; M79.672 Pain in left foot; Z78.0 Asymptomatic menopausal state
CPT/HCPCS: 77080; 95886; 95909

== ENCOUNTER → 2023-09-23 14:23 | Outpatient (BNV) | payer MEDICAID, SELFPAY | PROVIDERS: PCP Internal Medicine; Visit Provider Physical Medicine & Rehabilitation | DX: M79.672 Pain in left foot (principal); M25.561 Pain in right knee; M25.562 Pain in left knee | CPT/HCPCS: 95886; 95909 ==

== ENCOUNTER 2023-10-02 11:01 | Outpatient (AMB) | payer MEDICAID, SELFPAY ==
[2023-10-02 11:15] VITALS: BP 137/92; PULSE 104; RESP 12; O2SAT 99
--- NOTE | 2023-10-02 11:15 | MHC.OFFVIS ---
Intake Vital Signs 10/02/23 11:15 Height 5 ft 7 in BP 137/92 H Blood Pressure Location Rt brachial Position Sitting Respiration 12 Pulse 104 H Pulse Source Pulse Oximeter Pulse Oximetry (%) 99 Oxygen Delivery Method Room Air Intake Visit Reasons: Follow up Allergies amoxicillin [AMOXICILLIN] Allergy (Intermediate, Verified 10/02/23 11:58) rash, rash/itching sulfamethoxazole [From BACTRIM] Allergy (Intermediate, Verified 10/02/23 11:58) RASH trimethoprim [From BACTRIM] Allergy (Intermediate, Verified 10/02/23 11:58) RASH hydrocodone [Hydrocodone] Allergy (Mild, Verified 10/02/23 11:58) ITCH ibuprofen [From Motrin] Allergy (Mild, Verified 10/02/23 11:58) UPSET STOMACH latex [Latex] Allergy (Mild, Verified 10/02/23 11:58) ITCH Medication List - Last Reconciled 10/02/23 by Lina Gore, VERA acetaminophen 1 tab PO Q6-8H PRN [ACL defiance brace n/a] albuterol sulfate 90 mcg/actuation 2 puffs inhalation Q4-6H PRN carvedilol 1 tab PO BID chlorthalidone 1 tab PO DAILY cholecalciferol (vitamin D3) (Vitamin D3) 1 cap PO QAM cyclobenzaprine 10 mg PO TID PRN docusate sodium 1 cap PO BID PRN folic acid 1 tab PO DAILY lidocaine 5% 1 patch topical DAILY PRN lisinopril 40 mg PO QAM magnesium oxide 400 mg PO BIDPC 30 days kqpesyexoran-ajkz-bbwed acid 18-400 mg-mcg (Certavite-Antioxidant) 1 tab PO DAILY omeprazole 1 cap PO DAILY@0630 thiamine HCl (vitamin B1) 1 tab PO DAILY HPI Follow up HPI Details 47-year-old female who presents today to the office for a follow-up. The patient reports painful inflammation in her knee. She reports pain in her toes. She has difficulty standing or walking. She sometimes notices a mild bluish discoloration. She denies any injury or trauma in the past. She occasionally has swelling in her foot. She is not physically active and has been feeling weak. She has applied topical creams for pain with variable benefit. She also has pain in her shoulder region. Past procedures 07/31/23: Right adductor canal saphenous nerve block, ultrasound-guided: Diagnostic relief for the duration of the anesthetic. 11/05/22: Lumbar Medial Branch Block, Bilateral L3, L4 medial branches and L5 Dorsal Ramus (2 levels, 3 nerves)- 100% relief. [facility] Medical History Depression Anxiety and depression Lower back pain History of COVID-19 Uncontrolled hypertension Panic attack H/O ETOH abuse Anxiety History of low potassium Breast cancer Hypertension Surgical History History of carpal tunnel release Hx of tubal ligation History of breast lump/mass excision H/O: hysterectomy Family History Mother Heart disease Alzheimers disease Social History Household Members: Other Housing: Apartment Do you presently have visiting nurse or other home services: No Alcohol intake: current Alcohol intake frequency: 3 or more drinks per day Alcohol type: hard liquor Comment: refused alarms Patient Tobacco Use Status: Current everyday Tobacco user Tobacco use type: Cigarette Second Hand Smoke Exposure: Yes Advance Directives Date on File: 02/11/22 service: No Current occupational status: disabled Review of Systems Const All systems reviewed & are unremarkable except as noted in HPI and below Physical Exam Vital Signs: Last Vital Signs Pulse 104 H 10/02/23 11:15 Resp 12 10/02/23 11:15 BP 137/92 H 10/02/23 11:15 Pulse Ox 99 10/02/23 11:15 Oxygen Delivery Method Room Air 10/02/23 11:15 General: Appears afebrile. Alert and oriented. Mood and affect appropriate. Follows and participates in conversation appropriately. Respiratory effort is unlabored. Able to transition from sit to stand unassisted. Ambulates with bilaterally normal heel strike and toe off. Tenderness to palpation surrounding the right knee. Results Reviewed Results Reviewed: 08/24/23: XR knee standing BI FINDINGS: On standing knee view, left knee joint is slightly higher than the right. Tricompartment spurring identified. Bilateral mild medial knee joint narrowings. Mild right lateral knee and patellofemoral narrowings. Right suprapatellar effusion. Right suprapatellar calcifications. IMPRESSION: Bilateral degenerative type changes. Right suprapatellar effusion. Question right synovial osteochondromatosis. 08/08/23: XR FOOT, LEFT FINDINGS: No acute fracture or dislocation. Joint spaces are maintained. Soft tissues are unremarkable. Plantar calcaneal spurring and Achilles tendon enthesopathy. IMPRESSION: Plantar calcaneal spurring and Achilles tendon enthesopathy. No acute osseous abnormality. Assessment & Plan Assessment & Plan (1) Osteoarthritis of right knee: Code(s): M17.11 - Unilateral primary osteoarthritis, right knee (2) Bilateral knee pain: Code(s): M25.561 - Pain in right knee; M25.562 - Pain in left knee Qualifiers: Chronicity: chronic Qualified Code(s): M25.561 - Pain in right knee; M25.562 - Pain in left knee; G89.29 - Other chronic pain Plan Will schedule her for a right temporary nerve stimulator placement for right chronic right knee pain. Discussed the risks and benefits of the procedure with the patient in detail. All questions were answered. The patient is on board with the plan. Justification for interventional therapy: ? Patient with average pain > 6/10 ? Patient has exhausted conservative therapy . Diagnostic injection provided 100% pain relief for the diagnostic phase Scribed for Dr. Spann by Gregorio Willoughby, medical technologist hematology, on 10/02/2023. I, Dr. Spann, have personally reviewed and agree with the information entered by the scribe. Coding Level of Care Code Est Pt Level 3 (00547) Diagnoses Osteoarthritis of right knee M17.11 Chronic pain of both knees M25.561; M25.562; G89.29 Chronicity: chronic
== END 2023-10-02 11:45 | disposition home or self-care (01) ==
PROVIDERS: PCP Internal Medicine; Visit Provider Internal Medicine
DX: M17.11 Unilateral primary osteoarthritis, right knee (principal); M25.561 Pain in right knee; M25.562 Pain in left knee; G89.29 Other chronic pain
CPT/HCPCS: 99213

== ENCOUNTER → 2023-10-02 11:01 | Outpatient (BNVA) | payer MEDICAID, SELFPAY | PROVIDERS: PCP Internal Medicine; Visit Provider Internal Medicine | DX: R19.5 Other fecal abnormalities (principal); K64.9 Unspecified hemorrhoids; M17.11 Unilateral primary osteoarthritis, right knee; M25.561 Pain in right knee; M25.562 Pain in left knee; G89.29 Other chronic pain | CPT/HCPCS: 99212 ==

== ENCOUNTER 2023-10-02 11:48 | Outpatient (AMB) | payer MEDICAID, SELFPAY ==
--- NOTE | 2023-10-02 11:58 | MHC.OFFVIS ---
Intake Vital Signs 10/02/23 12:14 Height 5 ft 7 in Weight 169 lb BMI 26.5 BP 136/82 Blood Pressure Location Lt brachial Position Sitting Pulse 110 H Intake Visit Reasons: Positive cologuard Intake Note: Patient new consult for Abnormal Cologuard. Patient cc: abdominal pain with bloating, gassy, constipation with some bloody hemorrhoids on and off. Loan Auditor Required: No Accompanied by: Spouse Allergies amoxicillin [AMOXICILLIN] Allergy (Intermediate, Verified 10/02/23 11:58) rash, rash/itching sulfamethoxazole [From BACTRIM] Allergy (Intermediate, Verified 10/02/23 11:58) RASH trimethoprim [From BACTRIM] Allergy (Intermediate, Verified 10/02/23 11:58) RASH hydrocodone [Hydrocodone] Allergy (Mild, Verified 10/02/23 11:58) ITCH ibuprofen [From Motrin] Allergy (Mild, Verified 10/02/23 11:58) UPSET STOMACH latex [Latex] Allergy (Mild, Verified 10/02/23 11:58) ITCH HPI Positive cologuard HPI Details 47 year old? female here today for pre colonoscopy screening.? Patient was sent to us by her PCP.? This is her first colonoscopy screening.? Was sent as she had positive Cologuard test. Patient reports occasional blood in her stool. Reports to be constipated. History of hemorrhoids in the past. Bowel movements every few days. Sometimes no BM for 1 week. ? Denies any personal or family history of gastrointestinal disease, colon polyps, or cancer.? History of breast CA. Denies history of difficulty with sedation or anesthesia in the past.? Negative for history of sleep apnea.? Denies any history of cardiac, renal, pulmonary, or hepatic disease.?? No history of infectious? diseases like hepatitis A, B, C, HIV or tuberculosis.? Patient is not on any anticoagulation therapy. [facility] Medical History Depression Anxiety and depression Lower back pain History of COVID-19 Uncontrolled hypertension Panic attack H/O ETOH abuse Anxiety History of low potassium Breast cancer Hypertension Surgical History History of carpal tunnel release Hx of tubal ligation History of breast lump/mass excision H/O: hysterectomy Family History Mother Heart disease Alzheimers disease Social History Household Members: Other Housing: Apartment Do you presently have visiting nurse or other home services: No Alcohol intake: current Alcohol intake frequency: 3 or more drinks per day Alcohol type: hard liquor Comment: refused alarms Patient Tobacco Use Status: Current everyday Tobacco user Tobacco use type: Cigarette Second Hand Smoke Exposure: Yes Advance Directives Date on File: 02/11/22 service: No Current occupational status: disabled Physical Exam Vital Signs: Last Vital Signs Pulse 110 H 10/02/23 12:14 BP 136/82 10/02/23 12:14 BMI result Body Mass Index 26.5 Const General: healthy appearing, no acute distress and well developed Nutritional Appearance: well nourished Orientation/consciousness: patient oriented x3 HEENT Head: Yes normal to inspection, Yes normocephalic and Yes atraumatic Face and sinus: Yes normal facial exam Mouth: Normal oral and palatal mucosa present Throat: Yes posterior oropharynx normal, Yes tonsils normal and Yes uvula midline Eyes General: appearance normal, both eyes and all related structures Neck Neck: Yes normal visual inspection, Yes full ROM and Yes trachea midline Thyroid: Thyroid normal Resp Effort & Inspection: normal respiratory effort, able to speak in complete sentences, no tracheal deviation and symmetric chest movement Auscultation: clear to auscultation bilaterally Cardio Rate: regular rate Heart sounds: S1 normal heart sound present and S2 normal heart sound present GI Inspection: Yes normal to inspection and No distended Palpation (GI): Soft to palpation, not firm, nontender and No hepatosplenomegaly present Auscultation: normal bowel sounds Rectal Exam - Female: External hemorrhoid(s) present and No Fistula present (GI) General: Yes no CVA tenderness Back/Spine/Pelvis Back: no CVA tenderness Skin General skin exam: elasticity normal, turgor normal and dry skin Neuro General: patient oriented x3 Psych Appearance: grossly normal Mental Status: mental status grossly normal Assessment & Plan Assessment & Plan (1) Positive colorectal cancer screening using Cologuard test: Code(s): R19.5 - Other fecal abnormalities (2) Hemorrhoid: Code(s): K64.9 - Unspecified hemorrhoids Qualifiers: Hemorrhoid type: unspecified Qualified Code(s): K64.9 - Unspecified hemorrhoids Plan .Patient denies any cardiac or respiratory symptoms.? Denies any issues with anesthesia in the past.? Denies any history of sleep apnea.? No history infectious diseases in the past or present.? Not on any anticoagulation therapy.? No family or personal history of colon cancer or polyps.? Personal history of breast CA. Patient denies melena, unintentional weight loss or ribbon like stools.? Patient reports hematochezia. External hemorrhoids seen without any fissures. Discussed at length the pre-procedure,? prep, diet & medications as well as what to expect prior, during and after the procedure.?? Stressed the importance of good bowel prep. ?Recommended the use of Vaseline or Calmoseptine OTC & baby wipes with bowel movements to promote comfort.? ?Patient verbalizes understanding and agrees to plan of care.? She was given the opportunity to ask questions and all questions answered.? We will see her after the procedure.? Medications: New bisacodyl (Dulcolax (bisacodyl)) 10 mg (2 x 5 mg) PO BEDTIME 60 tabs 4RF hydrocortisone 2.5% (Proctosol HC) 1 appl ME BID-QID PRN 30 grams 2RF hemorrhoids K64.9 - Unspecified hemorrhoids polyethylene glycol 3350 (Miralax) As directed by gastroenterology department at [facility] 238 grams PO ONCE 238 grams 0RF Z12.11 - Encounter for screening for malignant neoplasm of colon Coding Level of Care Code New Pt Level 4 (72095) Diagnoses Positive colorectal cancer screening using Cologuard test R19.5 Hemorrhoids, unspecified hemorrhoid type K64.9 Hemorrhoid type: unspecified Time Spent (min) 45 Comment 30 minutes spent with patient and additional 15 minutes spent reviewing her records
[2023-10-02 12:14] VITALS: BP 136/82; PULSE 110; BMI 26.5
== END 2023-10-02 12:38 | disposition home or self-care (01) ==
PROVIDERS: PCP Internal Medicine; Visit Provider Nurse Practitioner Family
DX: R19.5 Other fecal abnormalities (principal); K64.9 Unspecified hemorrhoids
CPT/HCPCS: 99204

== ENCOUNTER 2023-10-08 09:37 | Outpatient (REF) | payer MEDICAID, SELFPAY | END 2023-10-08 09:38 | disposition home or self-care (01) | LOC: HO.MDS 09:37 | PROVIDERS: PCP Internal Medicine; Visit Provider Internal Medicine Medical Oncology | DX: D50.8 Other iron deficiency anemias (principal) | CPT/HCPCS: 96365; J1756 ==

== ENCOUNTER 2023-10-21 09:37 | Outpatient (AMB) | payer MEDICAID, SELFPAY ==
[2023-10-21 09:43] VITALS: BP 133/87; PULSE 100; BMI 27.6
--- NOTE | 2023-10-21 09:43 | A.OFFVIS_ITS ---
Intake Vital Signs 10/21/23 09:43 Height 5 ft 7 in Weight 176 lb 5.917 oz BMI 27.6 BP 133/87 Blood Pressure Location Rt brachial Position Sitting Pulse 100 Pulse Source Pulse Oximeter Intake Visit Reasons: follow up per paresh Intake Note: Pt presents to the office today for a follow up. Pt states she has nausea, bloating, and a lot of gas. Pt states shes not in pain but states she has discomfort in her stomach. Pt denies vomiting or diarrhea. Allergies amoxicillin [AMOXICILLIN] Allergy (Intermediate, Verified 10/21/23 09:45) rash, rash/itching sulfamethoxazole [From BACTRIM] Allergy (Intermediate, Verified 10/21/23 09:45) RASH trimethoprim [From BACTRIM] Allergy (Intermediate, Verified 10/21/23 09:45) RASH hydrocodone [Hydrocodone] Allergy (Mild, Verified 10/21/23 09:45) ITCH ibuprofen [From Motrin] Allergy (Mild, Verified 10/21/23 09:45) UPSET STOMACH latex [Latex] Allergy (Mild, Verified 10/21/23 09:45) ITCH HPI follow up per paresh HPI Details LAST VISIT Positive colorectal cancer screening using Cologuard test Hemorrhoid Plan Patient denies any cardiac or respiratory symptoms.? Denies any issues with anesthesia in the past.? Denies any history of sleep apnea.? No history infecti ous diseases in the past or present.? Not on any anticoagulation therapy.? No family or personal history of colon cancer or polyps.? Personal history of breast CA. Patient denies melena, unintentional weight loss or ribbon like stools.? Patient reports hematochezia. External hemorrhoids seen without any fissures. Discussed at length the pre-procedure,? prep, diet & medications as well as what to expect prior, during and after the procedure.?? Stressed the importance of good bowel prep. ?Recommended the use of Vaseline or Calmoseptine OTC & baby wipes with bowel movements to promote comfort.? ?Patient verbalizes understanding and agrees to plan of care.? She was given the opportunity to ask questions and all questions answered.? We will see her after the procedure.? Medications New bisacodyl (Dulcolax (bisacodyl)) 10 mg (2 x 5 mg) PO BEDTIME 60 tabs 4RF hydrocortisone 2.5% (Proctosol HC) 1 appl MD BID-QID PRN 30 grams 2RF hemor rhoids K64.9 polyethylene glycol 3350 (Miralax) As directed by gastroenterology department at [facility] 238 grams PO ONCE 238 grams 0RF Z12.11 TODAY'S VISIT Patient is here today for follow-up. Patient reports that she tried to take Dulcolax tablets and she feels like there to strong and the cost diarrhea. Patient continues to have occasional postprandial abdominal bloating. Denies melena, hematochezia, unintentional weight loss or ribbon like stools. Patient denies any dyspepsia, dysphagia or odynophagia. Reports occasional epigastric discomfort postprandially. Denies any nausea or vomiting. Patient reports to have pain and feels like she has nodule just outside her rectum. Patient reports that few days ago that nodule was larger, now she states that it is the same as it was few weeks ago. Patient denies any drainage or bleeding. [facility] Medical History Depression Anxiety and depression Lower back pain History of COVID-19 Uncontrolled hypertension Panic attack H/O ETOH abuse Anxiety History of low potassium Breast cancer Hypertension Surgical History History of carpal tunnel release Hx of tubal ligation History of breast lump/mass excision H/O: hysterectomy Family History Mother Heart disease Alzheimers disease Social History (Updated 10/21/23 @ 09:46 by Ivette Oliveira MA) Household Members: Other Housing: Apartment Do you presently have visiting nurse or other home services: No Alcohol intake: current Alcohol intake frequency: a few times a week Alcohol type: hard liquor Comment: refused alarms Patient Tobacco Use Status: Current everyday Tobacco user Tobacco use type: Cigarette Cigarettes Per Day: 2 Second Hand Smoke Exposure: Yes Advance Directives Date on File: 02/11/22 service: No Current occupational status: disabled Review of Systems Const Denies weight gain and Denies weight loss ENT Reports no additional complaints, Denies dysphagia and Denies odynophagia Card Reports no additional complaints Resp Reports no additional complaints GI Denies abdominal pain, Denies belching, Denies melena, Reports bloating, Reports constipation, Denies dysphagia, Denies excessive flatus, Denies dyspepsia, Denies heartburn, Denies diarrhea, Reports loose stools, Denies nausea, Denies odynophagia and Denies vomiting Reports no additional complaints Musc Reports no additional complaints Neuro Reports no additional complaints Psych Reports no additional complaints Endo Reports no additional complaints Physical Exam Vital Signs: Last Vital Signs Pulse 100 10/21/23 09:43 BP 133/87 10/21/23 09:43 BMI result Body Mass Index 27.6 Const General: healthy appearing, no acute distress and well developed Nutritional Appearance: well nourished Orientation/consciousness: patient oriented x3 HEENT Head: Yes normal to inspection, Yes normocephalic and Yes atraumatic Face and sinus: Yes normal facial exam Mouth: Normal oral and palatal mucosa present Throat: Yes posterior oropharynx normal, Yes tonsils normal and Yes uvula midline Eyes General: appearance normal, both eyes and all related structures Neck Neck: Yes normal visual inspection, Yes full ROM and Yes trachea midline Thyroid: Thyroid normal Resp Effort & Inspection: normal respiratory effort, able to speak in complete sentences, no tracheal deviation and symmetric chest movement Auscultation: clear to auscultation bilaterally Cardio Rate: regular rate GI Inspection: Yes normal to inspection and No distended Palpation (GI): Soft to palpation, not firm, nontender and No hepatosplenomegaly present Auscultation: normal bowel sounds Rectal Exam - Female: External hemorrhoid(s) present and other (fluctuant mass/Perianal abscess about 1 cm, no tenderness) General: Yes no CVA tenderness Back/Spine/Pelvis Back: no CVA tenderness Skin General skin exam: elasticity normal, turgor normal and dry skin Neuro General: patient oriented x3 Psych Appearance: grossly normal Mental Status: mental status grossly normal Affect: normal affect Assessment & Plan Assessment & Plan (1) Positive colorectal cancer screening using Cologuard test: Code(s): R19.5 - Other fecal abnormalities (2) Hemorrhoid: Code(s): K64.9 - Unspecified hemorrhoids Qualifiers: Hemorrhoid type: unspecified Qualified Code(s): K64.9 - Unspecified hemorrhoids (3) IBS (irritable bowel syndrome): Code(s): K58.9 - Irritable bowel syndrome without diarrhea Qualifiers: Irritable bowel syndrome type: with both diarrhea and constipation Qualified Code(s): K58.2 - Mixed irritable bowel syndrome (4) Postprandial abdominal bloating: Code(s): R14.0 - Abdominal distension (gaseous) Plan Patient can continue taking Citrucel in the morning and take senna in the evening to tablets. Patient was encouraged to increase fluid intake and activity and better bowel motility. Patient has a colonoscopy scheduled for January and will call the office weekly to see if there is any cancellations get it done sooner. Patient has small perirectal abscess. Patient will use Epsom salt Sitz baths. She was encouraged to use warm compresses. Patient will go over low FODMAP diet again. Patient does have a list at home of food recommended as well as food to avoid. I will see patient in 2 months, sooner on as needed basis. Patient is agreeable to this plan and verbalizes understanding of instructions. She was given the opportunity to ask questions and all questions answered. Thank you for allowing me to participate in her care Medications: New sennosides (Natural Senna Laxative) 17.2 mg (2 x 8.6 mg) PO BEDTIME 60 tabs 3RF constipation K59.00 - Constipation, unspecified Discontinued bisacodyl (Dulcolax (bisacodyl)) Discontinued Reason: Doctor's Order 10 mg (2 x 5 mg) PO BEDTIME 60 tabs 4RF Coding Level of Care Code Est Pt Level 4 (62529) Diagnoses Positive colorectal cancer screening using Cologuard test R19.5 Hemorrhoids, unspecified hemorrhoid type K64.9 Hemorrhoid type: unspecified Irritable bowel syndrome with both constipation and diarrhea K58.2 Irritable bowel syndrome type: with both diarrhea and constipation Postprandial abdominal bloating R14.0 Time Spent (min) 35 Comment 25 minute spent with patient and additional 10 minutes spent reviewing her records
== END 2023-10-21 10:10 | disposition home or self-care (01) ==
PROVIDERS: PCP Internal Medicine; Visit Provider Nurse Practitioner Family
DX: R19.5 Other fecal abnormalities (principal); K64.9 Unspecified hemorrhoids; K58.2 Mixed irritable bowel syndrome; R14.0 Abdominal distension (gaseous)
CPT/HCPCS: 99214

== ENCOUNTER → 2023-10-21 09:37 | Outpatient (BNVA) | payer MEDICAID, SELFPAY | PROVIDERS: PCP Internal Medicine; Visit Provider Nurse Practitioner Family | DX: R19.5 Other fecal abnormalities (principal); K64.9 Unspecified hemorrhoids; K58.2 Mixed irritable bowel syndrome; R14.0 Abdominal distension (gaseous) | CPT/HCPCS: 99212 ==

== ENCOUNTER 2023-10-22 13:46 | Outpatient (REF) | payer MEDICAID, SELFPAY | END 2023-10-22 13:47 | disposition home or self-care (01) | LOC: HO.MDS 13:46 | PROVIDERS: Visit Provider Internal Medicine Medical Oncology | DX: D50.8 Other iron deficiency anemias (principal) | CPT/HCPCS: 96365; J1756 ==

== ENCOUNTER 2023-11-19 06:12 | Outpatient (REF) | payer MEDICAID, SELFPAY | END 2023-11-19 06:13 | disposition home or self-care (01) | LOC: CF 06:12 | PROVIDERS: Visit Provider Internal Medicine | DX: Z13.89 Encounter for screening for other disorder (principal) ==

== ENCOUNTER 2023-12-17 01:19 | Emergency (ER) | payer MEDICAID, SELFPAY ==
--- NOTE | 2023-12-17 02:16 | ECG_ITS ---
Test Reason : PALPITATIONS Blood Pressure : / mmHG Vent. Rate : 099 BPM Atrial Rate : 099 BPM P-R Int : 170 ms QRS Dur : 080 ms QT Int : 394 ms P-R-T Axes : 073 025 065 degrees QTc Int : 505 ms Normal sinus rhythm Prolonged QT Abnormal ECG When compared with ECG of 27-JUL-2023 01:29, Criteria for Inferior infarct are no longer Present QT has lengthened Referred By: Leighann Ordonez Electronically Signed By:Jameson Jeffries
[2023-12-17 02:18] VITALS: BP 146/103; PULSE 96; RESP 18; TEMP 36.9; O2SAT 97; BMI 25.9
--- NOTE | 2023-12-17 02:20 | ED_ITS ---
HPI - Alcohol General Stated Complaint: Alcohol withdrawal Time Seen by Provider: 12/17/23 02:20 Source: patient and old records reviewed Mode of arrival: ambulatory Limitations: no limitations History of Present Illness HPI narrative: 48 yo female with PMH of BENIGNO, PTSD, HTN, PTSD, alcohol abuse and withdrawal but no seizures, elevated troponin who presents with nausea, anxiety, alcohol withdrawal symptoms - tremors, body aches, shakes last drink was yesterday. She also feels her chest is tight. MD complaint: alcohol withdrawal Last drink: Days (ago) (yesterday ) Chronic alcohol use: Yes Previous visits for alcohol intoxication: Yes Recent trauma: No Associated symptoms: nausea, tremors and other (chest pain, anxiety) Treatments prior to arrival: none Related Data Home Medications Medication Instructions Recorded Confirmed folic acid 1 mg tablet 1 tab PO DAILY 09/30/21 10/02/23 omeprazole 20 mg capsule,delayed 1 cap PO DAILY@0630 09/30/21 10/02/23 release thiamine HCl (vitamin B1) 100 mg 1 tab PO DAILY 09/30/21 10/02/23 tablet lisinopril 40 mg tablet 40 mg PO QAM 10/15/21 10/02/23 acetaminophen 500 mg tablet 1 tab PO Q6-8H PRN fever 06/04/22 10/02/23 carvedilol 3.125 mg tablet 1 tab PO BID 06/04/22 10/02/23 chlorthalidone 25 mg tablet 1 tab PO DAILY 06/04/22 10/02/23 cholecalciferol (vitamin D3) 25 1 cap PO QAM 06/04/22 10/02/23 mcg (1,000 unit) capsule (Vitamin D3) docusate sodium 100 mg capsule 1 cap PO BID PRN Constipation 06/04/22 10/02/23 multivitamin-ferrous 1 tab PO DAILY 06/04/22 10/02/23 fumarate-folic acid 18 mg-400 mcg tablet (Certavite-Antioxidant) Previous Rx's Medication Instructions Recorded ACL defiance brace #1 ea 07/29/21 albuterol sulfate 90 mcg/actuation 2 puff inhalation Q4-6H PRN 09/12/21 aerosol inhaler shortness of breath or wheezing #8.5 grams magnesium oxide 400 mg (241.3 mg 400 mg PO BIDPC 30 days #60 tabs 10/02/21 magnesium) tablet lidocaine 5 % topical patch 1 patch topical DAILY PRN pain #60 06/22/23 ea cyclobenzaprine 10 mg tablet 10 mg PO TID PRN muscle spasm #15 08/08/23 tabs hydrocortisone 2.5 % topical cream 1 appl [place] BID-QID PRN hemorrhoids 10/02/23 with perineal applicator #30 grams (Proctosol HC) polyethylene glycol 3350 17 238 g PO ONCE #238 grams 10/02/23 gram/dose oral powder (Miralax) sennosides 8.6 mg tablet (Natural 17.2 mg (2 x 8.6 mg) PO BEDTIME 10/21/23 Senna Laxative) constipation #60 tabs Allergies Allergy/AdvReac Type Severity Reaction Status Date / Time amoxicillin [AMOXICILLIN] Allergy Intermediate rash, Verified 12/17/23 02:24 rash/itching sulfamethoxazole Allergy Intermediate RASH Verified 12/17/23 02:24 [From BACTRIM] trimethoprim [From BACTRIM] Allergy Intermediate RASH Verified 12/17/23 02:24 hydrocodone [Hydrocodone] Allergy Mild ITCH Verified 12/17/23 02:24 ibuprofen [From Motrin] Allergy Mild UPSET Verified 12/17/23 02:24 STOMACH latex [Latex] Allergy Mild ITCH Verified 12/17/23 02:24 Review of Systems Review of Systems: Constitutional : No Weight loss, No Fever, No Chills ENT/Mouth : No sore throat, No Rhinorrhea Eyes: No Eye Pain, No Swelling Cardiovascular : pos Chest Pain, no SOB, no Dyspnea on Exertion, No Orthopnea, No Edema, No Palpitations Respiratory : No Cough, No Sputum Gastrointestinal : pos Nausea, Npos Vomiting, No Diarrhea, No abdominal Pain, No Hematochezia, No Melena Genitourinary : No Dysuria, No Urinary Frequency Musculoskeletal : No joint pain, pos Myalgias, No Joint Swelling Skin : No Skin Lesions, No rash Neuro : No Weakness, No Numbness, No Dizziness, No Headache Psych : pos Anxiety/Panic, No Depression Heme/Lymph: No Bruising, No Lymphadenopathy Endocrine : No Polyuria, No Polydipsia All other systems reviewed and are negative PMFSH Past Medical History Attestation statement: The following information was validated with the patient. Source: old records reviewed Medical History Depression Anxiety and depression Lower back pain History of COVID-19 Uncontrolled hypertension Panic attack H/O ETOH abuse Anxiety History of low potassium Breast cancer Hypertension Surgical History History of carpal tunnel release Hx of tubal ligation History of breast lump/mass excision H/O: hysterectomy Family History Family History Mother Heart disease Alzheimers disease Social History Social History Household Members: Other Housing: Apartment Do you presently have visiting nurse or other home services: No Alcohol intake: current Alcohol intake frequency: a few times a week Alcohol type: hard liquor Comment: refused alarms Patient Tobacco Use Status: Current everyday Tobacco user Tobacco use type: Cigarette Cigarettes Per Day: 2 Second Hand Smoke Exposure: Yes Advance Directives Date on File: 02/11/22 service: No Current occupational status: disabled Physical Exam ED Appearance: Alert. Oriented X3. anxious mild acute distress. Eyes: Pupils equal, round and reactive to light. ENT: Pharynx dry MM, tongue fasciculations Neck: Normal inspection. Neck supple. CVS: Normal heart rate and rhythm. Pulses normal. Respiratory: No respiratory distress. Breath sounds normal. Abdomen: Soft and non-tender. Skin: Skin warm and dry. pale skin color. Normal skin turgor. Extremities: No lower extremity edema. No calf ttp Neuro: Oriented X 3. No motor deficit. No sensory deficit. tremors noted Course Course Course Narrative: signed out to Dr. Dial pending workup Medical Decision Making Medical Decision Making MDM Narrative: 48 yo female with PMH of BENIGNO, PTSD, HTN, PTSD, alcohol abuse and withdrawal but no seizures here with c/o alcohol withdrawal symptoms and chest tightness at this time I have ordered empiric magnesium, IV thiamine, IV ativan and phenobarb protocol, IVF ordered. Differential Diagnosis Differential Diagnoses: The differential diagnosis associated with the presentation includes alcohol withdrawal, lyte abnormality, chest pain Admission/Observation Consideration of admission/observation: Escalation of care including admission/observation considered Lab Data [facility] Lab Attestation statement: I reviewed the patient's lab results. External Record Review External record reviewed: Inpatient record Social Determinants Patient?s care significantly limited by Social Determinants of Health including: Problems related to primary support group Critical Care Time Critical Care Time Critical Care Time: Yes Total Critical Care Time: 45 Attestation: alcohol withdrawal treatment, phenobarb protocol, IV ativan, IV magnesium I attest to this time spent taking care of the patient Discharge Plan Discharge Clinical Impression: Hypomagnesemia Alcohol withdrawal Qualifiers: Complication of substance-induced condition: with unspecified complication Qualified Code(s): F10.939 - Alcohol use, unspecified with withdrawal, unspe cified Patient Disposition: Still a Patient Prescriptions: No Action (DME) ACL defiance brace See Rx Instructions .ROUTE .MEDSUPPLY Qty: 1 0RF Rx Instructions: n/a albuterol sulfate 90 mcg/actuation HFA aerosol inhaler 2 puff inhalation Q4-6H PRN (Reason: shortness of breath or wheezing) Qty: 8.5 0RF thiamine HCl (vitamin B1) 100 mg tablet 1 tab PO DAILY omeprazole 20 mg capsule,delayed release(DR/EC) 1 cap PO DAILY@0630 folic acid 1 mg tablet 1 tab PO DAILY magnesium oxide 400 mg (241.3 mg magnesium) Tablet 400 mg PO BIDPC 30 Days Qty: 60 0RF chlorthalidone 25 mg tablet 1 tab PO DAILY carvedilol 3.125 mg tablet 1 tab PO BID docusate sodium 100 mg capsule 1 cap PO BID PRN (Reason: Constipation) cholecalciferol (vitamin D3) [Vitamin D3] 25 mcg (1,000 unit) capsule 1 cap PO QAM Certavite-Antioxidant 18-400 mg-mcg tablet 1 tab PO DAILY acetaminophen 500 mg tablet 1 tab PO Q6-8H PRN (Reason: fever) cyclobenzaprine 10 mg tablet 10 mg PO TID PRN (Reason: muscle spasm) Qty: 15 0RF lisinopril 40 mg tablet 40 mg PO QAM hydrocortisone [Proctosol HC] 2.5 % cream with perineal applicator 1 appl [place] BID-QID PRN (Reason: hemorrhoids) Qty: 30 2RF polyethylene glycol 3350 [Miralax] 17 gram/dose powder 238 g PO ONCE Qty: 238 0RF Rx Instructions: As directed by gastroenterology department at [facility] lidocaine 5 % adhesive patch,medicated 1 patch topical DAILY PRN (Reason: pain) Qty: 60 3RF Rx Instructions: leave on most painful area for up to 12 hrs sennosides [Natural Senna Laxative] 8.6 mg tablet 17.2 mg PO BEDTIME Qty: 60 3RF
[2023-12-17 02:46] LABS: MANUAL DIFF FLAG NO
[2023-12-17 02:48] LABS: Basophils Absolute Auto 0.1 X10*3/uL (0.0-0.2); Basophils Percent Auto 0.9 % (0-2); Eosinophils Absolute Auto 0.1 X10*3/uL (0.0-0.4); Eosinophils Percent Auto 1.1 % (0-4); Imm Gran Abs Auto 0.02 X10*3/uL (0.00-0.03); Imm Gran Pct Auto 0.2 % (0.0-0.4); Lymphocytes Absolute Auto 3.3 X10*3/uL (1.2-4.9); Lymphocytes Percent Auto 35.6 % (20-40); Mean Corpuscular HGB Conc 34.3 g/dl (31.0-35.0); Mean Corpuscular Hemoglobin 29.9 pg (27.0-33.0); Mean Corpuscular Volume 87.3 fL (80.0-98.0); Mean Platelet Volume 9.4 fL (9.4-12.3); Monocytes Absolute Auto 0.9 X10*3/uL (0.1-1.2); Monocytes Percent Auto 9.9 % (2-11); Neutrophils Absolute Auto 4.8 x10*3/uL (2.0-8.3); Neutrophils Percent Auto 52.3 % (45-73); Platelet Count 386 X10*3/uL (160-400); Red Blood Count 4.01 X10*6/uL (4.20-5.50); White Blood Count 9.2 X10*3/uL (4.8-10.8)
[2023-12-17 02:54] LABS: Prothrombin Time 12.2 SEC (11.1-13.3)
[2023-12-17] MEDS: Thiamine HCL 200 MG in 0.9 % Sodium Chloride 100 ML 204 MG IV (02:56)
[2023-12-17] MEDS: 0.9 % Sodium Chloride 1,000 ML 999 ML IV (02:58)
[2023-12-17] MEDS: LORazepam 2 MG/ML VIAL 1 MG IVPUSH (02:58)
[2023-12-17 03:06] LABS: Alanine Aminotransferase 29 U/L (0-31); Albumin Level 4.4 g/dL (3.5-5.0); Alkaline Phosphatase 102 U/L (39-117); Anion Gap 18 (12-20); Aspartate Amino Transferase 25 U/L (5-31); Bilirubin Direct 0.3 mg/dL (0.0-0.5); Blood Urea Nitrogen 18 mg/dL (9-16); Calcium 9.3 mg/dL (8.4-10.2); Carbon Dioxide 25 mmol/L (22-29); Chloride 99 mmol/L (96-108); Creatinine Clr Calc Pharmacy 56.9; Estimated Glomerular Filt Rate 45; Ethanol < 10 mg/dL; Glucose Random 111 mg/dL (60-115); Lipase 48 U/L (8-78); Magnesium 1.5 mg/dL (1.6-2.6); Potassium 3.7 mmol/L (3.3-5.1); Sodium 138 mmol/L (135-145)
[2023-12-17 03:15] VITALS: BP 128/93; PULSE 100; RESP 14; TEMP 36.9; O2SAT 98
[2023-12-17 03:17] LABS: COVID-19 Test Negative (Negative); IDNOW Serial# 08D9AD1C
[2023-12-17] MEDS: PHENobarbitaL sodium 130 MG/ML IM ONCE 297 MG IM (03:20)
[2023-12-17] MEDS: Magnesium Sulfate/H2O 2 GM/50 ML PIGGYBACK IV (03:41)
--- NOTE | 2023-12-17 04:02 | PC.NURSE ---
Addendum entered by Anamika Patel 12/17/23 04:25: Patient belongings taken to locker 12. Original Note: Patient changed into a hospital attire with assistance of security, patient belongings taken to juan.
[2023-12-17] MEDS: PHENobarbitaL sodium 130 MG/ML VIAL IM Q3Hx2 223 MG IM ×2 (05:33→09:44)
[2023-12-17 06:16] VITALS: BP 136/92; PULSE 98; RESP 16; TEMP 36.9; O2SAT 98
[2023-12-17 07:39] VITALS: BP 123/76; PULSE 96; TEMP 36.9; O2SAT 98
--- NOTE | 2023-12-17 09:06 | PC.NURSE ---
FOUNDRY METALLURGIST (PRANAY) IS AT BEDSIDE. PT AWARE OF PLAN OF CARE.
--- NOTE | 2023-12-17 09:12 | MHC.RECOVRN ---
Met with pt in ED3 after pt requesting ATS. Pt had presented to the ED reporting chest tightness, nausea, dizziness, hx alcohol withdrawal, last drink yesterday afternoon. Pt laying in bed, asleep, wakes to touch. Pt difficult to engage in conversation due to continuing to fall asleep, appears comfortable, does not appear to be experiencing withdrawal at this time. Pt reports alcohol use on the weekends, 1 liter of gin daily. Pt denies alcohol use during the week. Pt reports she has not felt chest pain due to withdrawal in the past. Pt denies hx inpatient treatment for AUD. Pt reports naltrexone through [facility], however, discontinued medication due to it causing upset stomach. Discussed inpatient and outpatient treatment options, including ATS. Pt denies interest in inpatient treatment/ATS. Discussed campral, pt would like to follow up with [facility]. Pt denies questions or concerns for t/w. Discussed with ED provider. Plan for pt to follow up with [facility] after discharge.
[2023-12-17 09:30] VITALS: BP 143/93; PULSE 98; RESP 13; TEMP 36.9; O2SAT 97
--- NOTE | 2023-12-17 09:40 | PC.NURSE ---
PT IS A/O X 3 NO SOB/[place] SPEAKS IN FULL SENTENCES. PT DENIES ANY SI/HI/HALLUCINATIONS. CIWA - 2. PT TO BE D/C'D HOME WITH SIGNIFICANT OTHER.
[2023-12-17 09:45] LABS: Amphetamine Screen Urine Not Detected (Not Detect); Barbiturates, Urine POSITIVE (Not Detect); Benzodiazepines Screen Urine Not Detected (Not Detect); Cannabinoid Screen Urine Not Detected (Not Detect); Cocaine Screen Urine Not Detected (Not Detect); Fentanyl, urine Not Detected (Not Detect); Opiate Screen Urine Not Detected (Not Detect); Phencyclidine Screen Urine Not Detected (Not Detect)
== END 2023-12-17 10:00 | disposition home or self-care (01) ==
PROVIDERS: Emergency Medicine; Emergency Provider Emergency Medicine; PCP Family Medicine
DX: F10.10 Alcohol abuse, uncomplicated (principal); Y90.0 Blood alcohol level of less than 20 mg/100 ml; E83.42 Hypomagnesemia; Z11.52 Encounter for screening for COVID-19; F17.210 Nicotine dependence, cigarettes, uncomplicated; Z79.899 Other long term (current) drug therapy
CPT/HCPCS: 36415; 80048; 80076; 80307; 83690; 83735; 84484; 85025; 85610; 87635; 93005; 96365; 96367; 96372; 96375; 99284; 99285; J2060; J2560; J3411; J3475

== ENCOUNTER → 2023-12-17 02:16 | Outpatient (BNV) | payer MEDICAID, SELFPAY | PROVIDERS: Emergency Provider Emergency Medicine; PCP Family Medicine; Visit Provider Internal Medicine Cardiovascular Disease | DX: R94.31 Abnormal electrocardiogram [ECG] [EKG] (principal) | CPT/HCPCS: 93010 ==

== ENCOUNTER 2023-12-31 06:15 | Outpatient (REF) | payer MEDICAID, SELFPAY | END 2023-12-31 06:16 | disposition home or self-care (01) | LOC: CF 06:15 | PROVIDERS: Visit Provider Internal Medicine | DX: Z13.89 Encounter for screening for other disorder (principal) ==

== ENCOUNTER 2024-01-02 18:19 | Emergency (ER) | payer MEDICAID, SELFPAY ==
--- NOTE | ~2024-01-02 | XR_ITS ---
EXAMINATION: XR CHEST CLINICAL INFORMATION: Cough. COMPARISON: None available. TECHNIQUE: Frontal view of the chest was obtained. FINDINGS: The lungs are well-expanded and clear of acute pneumonic process. Heart size and pulmonary vascularity is normal. No gross bony abnormality seen. XR/XR chest 1V IMPRESSION: Unremarkable chest exam.
--- NOTE | 2024-01-02 18:22 | ECG_ITS ---
Test Reason : CHEST PAIN Blood Pressure : / mmHG Vent. Rate : 110 BPM Atrial Rate : 110 BPM P-R Int : 158 ms QRS Dur : 068 ms QT Int : 364 ms P-R-T Axes : 066 016 084 degrees QTc Int : 492 ms Sinus tachycardia Nonspecific T wave abnormality Abnormal ECG When compared with ECG of 17-DEC-2023 02:32, Inverted T waves have replaced nonspecific T wave abnormality in Lateral leads Referred By: Generic ED Physician Electronically Signed By:DANO TRIPP
[2024-01-02 18:28] VITALS: BP 148/105; PULSE 117; RESP 20; TEMP 36; O2SAT 100; BMI 25.0
[2024-01-02 19:00] VITALS: PULSE 119; RESP 22; O2SAT 97
--- NOTE | 2024-01-02 19:00 | PC.NURSE ---
pt reports I'M HAVING A PANIC ATTACK - reports she cannot breathe, o2 at 97, reassessed, ice pack given and instructed pt on deep breathing
[2024-01-02 19:13] LABS: MANUAL DIFF FLAG NO
[2024-01-02 19:17] LABS: Basophils Absolute Auto 0.1 X10*3/uL (0.0-0.2); Eosinophils Percent Auto 0.2 % (0-4); Hematocrit 35.5 % (37.0-47.0); Hemoglobin 12.2 g/dl (12.0-16.0); Imm Gran Abs Auto 0.03 X10*3/uL (0.00-0.03); Imm Gran Pct Auto 0.3 % (0.0-0.4); Lymphocytes Absolute Auto 2.2 X10*3/uL (1.2-4.9); Lymphocytes Percent Auto 23.7 % (20-40); Mean Corpuscular HGB Conc 34.4 g/dl (31.0-35.0); Mean Corpuscular Hemoglobin 29.4 pg (27.0-33.0); Mean Corpuscular Volume 85.5 fL (80.0-98.0); Mean Platelet Volume 9.7 fL (9.4-12.3); Monocytes Absolute Auto 0.6 X10*3/uL (0.1-1.2); Monocytes Percent Auto 6.7 % (2-11); Neutrophils Absolute Auto 6.4 x10*3/uL (2.0-8.3); Neutrophils Percent Auto 68.1 % (45-73); Platelet Count 377 X10*3/uL (160-400); Red Blood Count 4.15 X10*6/uL (4.20-5.50); Red Cell Distribution Width 14.6 % (11.0-16.0); White Blood Count 9.3 X10*3/uL (4.8-10.8)
[2024-01-02 19:34] LABS: Alanine Aminotransferase 39 U/L (0-31); Albumin Level 4.8 g/dL (3.5-5.0); Alkaline Phosphatase 100 U/L (39-117); Anion Gap 24 (12-20); Aspartate Amino Transferase 41 U/L (5-31); Bilirubin Total 0.7 mg/dL (0.0-1.0); Blood Urea Nitrogen 18 mg/dL (9-16); Calcium 9.8 mg/dL (8.4-10.2); Carbon Dioxide 24 mmol/L (22-29); Chloride 95 mmol/L (96-108); Estimated Glomerular Filt Rate 40; Ethanol < 10 mg/dL; Glucose Random 107 mg/dL (60-115); Potassium 4.3 mmol/L (3.3-5.1); Sodium 139 mmol/L (135-145); Total Protein 8.5 g/dL (6.5-8.0)
[2024-01-02 19:40] LABS: Troponin-I High Sensitivity 12.1 ng/L (<3.5-17.0)
--- NOTE | 2024-01-02 21:29 | ED.ALCOHOL ---
HPI - Alcohol General Chief Complaint: ETOH/Substance Use Stated Complaint: chest pain from withdrawals,cough,sob Time Seen by Provider: 01/02/24 21:17 Source: patient Mode of arrival: ambulatory Limitations: no limitations History of Present Illness HPI narrative: Patient's history of anxiety/depression and alcoholism drinks alcohol whenever she feels depressed for last 10 days patient drinking heavy last drink was yesterday now patient feels anxious uncomfortable with palpitation feeling withdrawal nauseated sweating on arrival patient's blood pressure was 148/105 with not taking her blood pressure medications on arrival patient's blood pressure was 148/105 Related Data Home Medications Medication Instructions Recorded Confirmed folic acid 1 mg tablet 1 tab PO DAILY 09/30/21 10/02/23 omeprazole 20 mg capsule,delayed 1 cap PO DAILY@0630 09/30/21 10/02/23 release thiamine HCl (vitamin B1) 100 mg 1 tab PO DAILY 09/30/21 10/02/23 tablet lisinopril 40 mg tablet 40 mg PO QAM 10/15/21 10/02/23 acetaminophen 500 mg tablet 1 tab PO Q6-8H PRN fever 06/04/22 10/02/23 carvedilol 3.125 mg tablet 1 tab PO BID 06/04/22 10/02/23 chlorthalidone 25 mg tablet 1 tab PO DAILY 06/04/22 10/02/23 cholecalciferol (vitamin D3) 25 1 cap PO QAM 06/04/22 10/02/23 mcg (1,000 unit) capsule (Vitamin D3) docusate sodium 100 mg capsule 1 cap PO BID PRN Constipation 06/04/22 10/02/23 multivitamin-ferrous 1 tab PO DAILY 06/04/22 10/02/23 fumarate-folic acid 18 mg-400 mcg tablet (Certavite-Antioxidant) Previous Rx's Medication Instructions Recorded ACL defiance brace #1 ea 07/29/21 albuterol sulfate 90 mcg/actuation 2 puff inhalation Q4-6H PRN 09/12/21 aerosol inhaler shortness of breath or wheezing #8.5 grams magnesium oxide 400 mg (241.3 mg 400 mg PO BIDPC 30 days #60 tabs 10/02/21 magnesium) tablet lidocaine 5 % topical patch 1 patch topical DAILY PRN pain #60 06/22/23 ea cyclobenzaprine 10 mg tablet 10 mg PO TID PRN muscle spasm #15 08/08/23 tabs hydrocortisone 2.5 % topical cream 1 appl IN BID-QID PRN hemorrhoids 10/02/23 with perineal applicator #30 grams (Proctosol HC) polyethylene glycol 3350 17 238 g PO ONCE #238 grams 10/02/23 gram/dose oral powder (Miralax) sennosides 8.6 mg tablet (Natural 17.2 mg (2 x 8.6 mg) PO BEDTIME 10/21/23 Senna Laxative) constipation #60 tabs benzonatate 200 mg capsule 200 mg PO TID PRN cough #30 caps 01/03/24 fluoxetine 10 mg capsule (Prozac) 10 mg PO DAILY #30 caps 01/03/24 lorazepam 1 mg tablet (Ativan) 1 mg PO TID PRN alcohol withdrawal 01/03/24 #20 tabs Allergies Allergy/AdvReac Type Severity Reaction Status Date / Time amoxicillin [AMOXICILLIN] Allergy Intermediate rash, Verified 01/02/24 18:33 rash/itching sulfamethoxazole Allergy Intermediate RASH Verified 01/02/24 18:33 [From BACTRIM] trimethoprim [From BACTRIM] Allergy Intermediate RASH Verified 01/02/24 18:33 hydrocodone [Hydrocodone] Allergy Mild ITCH Verified 01/02/24 18:33 ibuprofen [From Motrin] Allergy Mild UPSET Verified 01/02/24 18:33 STOMACH latex [Latex] Allergy Mild ITCH Verified 01/02/24 18:33 Review of Systems Review of Systems: Yes all other systems are reviewed and are negative PMFSH Past Medical History Medical History Depression Anxiety and depression Lower back pain History of COVID-19 Uncontrolled hypertension Panic attack H/O ETOH abuse Anxiety History of low potassium Breast cancer Hypertension Surgical History History of carpal tunnel release Hx of tubal ligation History of breast lump/mass excision H/O: hysterectomy Family History Family History Mother Heart disease Alzheimers disease Social History Social History Household Members: Other Housing: Apartment Do you presently have visiting nurse or other home services: No Alcohol intake: current Alcohol intake frequency: a few times a week Alcohol type: hard liquor Comment: refused alarms Patient Tobacco Use Status: Current everyday Tobacco user Tobacco use type: Cigarette Cigarettes Per Day: 2 Smoked in Last 30 Days: Yes Second Hand Smoke Exposure: Yes Use of substances other than those prescribed or required for medical reasons: No Advance Directives: Yes Advance Directives on File: Yes Advance Directives Date on File: 02/11/22 Patient : No service: No Current occupational status: disabled Physical Exam ED Vital Signs: Vital Signs - 24 hr 01/02/24 18:28 01/02/24 19:00 01/02/24 22:27 Temperature 96.8 F 99.1 F Pulse Rate 117 H 119 H 105 H Respiratory Rate 20 22 H 14 Blood Pressure 148/105 H 144/98 H Pulse Oximetry 100 97 96 Oxygen Delivery Method Room Air Room Air Room Air 01/03/24 00:23 01/03/24 02:00 Temperature 99.3 F 97.5 F Pulse Rate 124 H 125 H Respiratory Rate 14 16 Blood Pressure 126/75 130/88 Pulse Oximetry 97 98 Oxygen Delivery Method Room Air Room Air BMI result Body Mass Index 25.0 Appearance: Alert. Oriented X3. No acute distress. Eyes: PERRLA, ENT: Pharynx normal. Oral Mucosa moist Neck: Normal inspection. Neck supple. CVS: Tachycardic regular heart rate and rhythm. Pulses normal. Respiratory: No respiratory distress. Equal air entry bilateral, no wheezing/rales/rhonchi Abdomen: Soft and nontender. Bowel sounds are present, no mass palpable, no CVA tenderness Skin: Skin warm and dry. Normal skin color. Normal skin turgor. Extremities: No lower extremity edema. No calf tenderness Neuro: Oriented X 3. No motor deficit. No sensory deficit.No cerebellar signs , cranial nerves II-XII intact Medical Decision Making Lab Data MDM Lab Attestation statement: I reviewed the patient's lab results. 01/02/24 19:09 01/02/24 19:09 Labs: Lab Results 01/02/24 01/02/24 Range/Units 19:09 22:03 WBC 9.3 (4.8-10.8) X10*3/uL RBC 4.15 L (4.20-5.50) X10*6/uL Hgb 12.2 (12.0-16.0) g/dl Hct 35.5 L (37.0-47.0) % MCV 85.5 (80.0-98.0) fL MCH 29.4 (27.0-33.0) pg MCHC 34.4 (31.0-35.0) g/dl RDW 14.6 (11.0-16.0) % Plt Count 377 (160-400) X10*3/uL MPV 9.7 (9.4-12.3) fL Immature Gran % (Auto) 0.3 (0.0-0.4) % Neut % (Auto) 68.1 (45-73) % Lymph % (Auto) 23.7 (20-40) % [place] % (Auto) 6.7 (2-11) % Eos % (Auto) 0.2 (0-4) % Baso % (Auto) 1.0 (0-2) % Lymph # (Auto) 2.2 (1.2-4.9) X10*3/uL [place] # (Auto) 0.6 (0.1-1.2) X10*3/uL Eos # (Auto) 0.0 (0.0-0.4) X10*3/uL Baso # (Auto) 0.1 (0.0-0.2) X10*3/uL Abs Immat Gran (auto) 0.03 (0.00-0.03) X10*3/uL Absolute Neuts (auto) 6.4 (2.0-8.3) x10*3/uL Absolute Nucleated RBC 0.000 (0.0-0.012) X10*3/uL Nucleated RBC % (auto) 0.0 (0.0-0.2) /100WBC Sodium 139 (135-145) mmol/L Potassium 4.3 (3.3-5.1) mmol/L Chloride 95 L (96-108) mmol/L Carbon Dioxide 24 (22-29) mmol/L Anion Gap 24 H (12-20) BUN 18 H (9-16) mg/dL Creatinine 1.39 (0.5-1.4) mg/dL Estim Creat Clear Calc 47.0 Estimated GFR 40 Random Glucose 107 (60-115) mg/dL Calcium 9.8 (8.4-10.2) mg/dL Magnesium 1.5 L (1.6-2.6) mg/dL Total Bilirubin 0.7 (0.0-1.0) mg/dL AST 41 H (5-31) U/L ALT 39 H (0-31) U/L Alkaline Phosphatase 100 (39-117) U/L Troponin I High Sens 12.1 (<3.5-17.0) ng/L Total Protein 8.5 H (6.5-8.0) g/dL Albumin 4.8 (3.5-5.0) g/dL Ethyl Alcohol < 10 mg/dL COVID-19 ([facility]) Positive A (Negative) COVID-19 Clin Com See Note Independent Interpretation I performed an independent interpretation of an: Plain X-Ray Radiology Impression Discussion of test interpretation with radiology: I have reviewed the radiologist's reading. Medications Administered Discontinued Medications Generic Name Dose Route Start Last Admin Trade Name Freq PRN Reason Stop Dose Admin Sodium Chloride 1,000 mls @ 999 mls/hr 01/02/24 21:42 01/02/24 22:51 Ns IV 01/02/24 22:42 Infused .Q1H1M ONE Infusion Magnesium Sulfate 2 gm in 50 mls @ 150 mls/hr 01/02/24 22:15 01/02/24 22:45 Magnesium Sulfate/H2o IV 01/02/24 22:34 Infused ONCE ONE Infusion Lisinopril 20 mg 01/02/24 22:15 01/02/24 22:25 Lisinopril 20 Mg Tablet PO 01/02/24 22:16 20 mg ONCE ONE Administration Protocol Lorazepam 2 mg 01/02/24 21:42 01/02/24 21:52 Lorazepam 2 Mg/Ml Vial IVPUSH 01/02/24 21:43 2 mg ONCE ONE Administration Lorazepam 2 mg 01/03/24 01:46 01/03/24 01:56 Lorazepam 1 Mg Tablet PO 01/03/24 01:47 2 mg ONCE ONE Administration Ondansetron HCl 4 mg 01/02/24 21:42 01/02/24 21:52 Ondansetron Hcl 4 Mg/2 Ml Vial IVPUSH 01/02/24 21:43 4 mg ONCE ONE Administration Discharge Plan Discharge Clinical Impression: Alcohol abuse, Anxiety, COVID Patient Disposition: Home, Self-Care Instructions: Abuse of Alcohol (ED), Anxiety (ED), COVID-19 (Coronavirus Disease 2019) (ED) Additional Instructions: Stop drinking alcohol Ativan for alcohol withdrawal Start taking Prozac for depression Follow-up with therapist and PCP Social distancing as advised Cough drops as prescribed Prescriptions: New lorazepam [Ativan] 1 mg tablet 1 mg PO TID PRN (Reason: alcohol withdrawal) Qty: 20 0RF fluoxetine [Prozac] 10 mg capsule 10 mg PO DAILY Qty: 30 0RF benzonatate 200 mg capsule 200 mg PO TID PRN (Reason: cough) Qty: 30 0RF No Action (DME) ACL defiance brace See Rx Instructions .ROUTE .MEDSUPPLY Qty: 1 0RF Rx Instructions: n/a albuterol sulfate 90 mcg/actuation HFA aerosol inhaler 2 puff inhalation Q4-6H PRN (Reason: shortness of breath or wheezing) Qty: 8.5 0RF thiamine HCl (vitamin B1) 100 mg tablet 1 tab PO DAILY omeprazole 20 mg capsule,delayed release(DR/EC) 1 cap PO DAILY@0630 folic acid 1 mg tablet 1 tab PO DAILY magnesium oxide 400 mg (241.3 mg magnesium) Tablet 400 mg PO BIDPC 30 Days Qty: 60 0RF chlorthalidone 25 mg tablet 1 tab PO DAILY carvedilol 3.125 mg tablet 1 tab PO BID docusate sodium 100 mg capsule 1 cap PO BID PRN (Reason: Constipation) cholecalciferol (vitamin D3) [Vitamin D3] 25 mcg (1,000 unit) capsule 1 cap PO QAM Certavite-Antioxidant 18-400 mg-mcg tablet 1 tab PO DAILY acetaminophen 500 mg tablet 1 tab PO Q6-8H PRN (Reason: fever) cyclobenzaprine 10 mg tablet 10 mg PO TID PRN (Reason: muscle spasm) Qty: 15 0RF lisinopril 40 mg tablet 40 mg PO QAM hydrocortisone [Proctosol HC] 2.5 % cream with perineal applicator 1 appl IN BID-QID PRN (Reason: hemorrhoids) Qty: 30 2RF polyethylene glycol 3350 [Miralax] 17 gram/dose powder 238 g PO ONCE Qty: 238 0RF Rx Instructions: As directed by gastroenterology department at [facility] lidocaine 5 % adhesive patch,medicated 1 patch topical DAILY PRN (Reason: pain) Qty: 60 3RF Rx Instructions: leave on most painful area for up to 12 hrs sennosides [Natural Senna Laxative] 8.6 mg tablet 17.2 mg PO BEDTIME Qty: 60 3RF Interventions: ED Discharge Assessment Last Done: 01/03/24 02:06 Discharge Date/Time: 01/03/24 02:06
[2024-01-02] MEDS: ondansetron HCL 4 MG/2 ML VIAL IVPUSH (21:52)
[2024-01-02] MEDS: 0.9 % Sodium Chloride 1,000 ML 999 ML IV (21:52)
[2024-01-02] MEDS: LORazepam 2 MG/ML VIAL IVPUSH (21:52)
[2024-01-02 22:04] LABS: Magnesium 1.5 mg/dL (1.6-2.6)
[2024-01-02 22:22] LABS: COVID-19 Test Positive (Negative); IDNOW Serial# 58CA691E
[2024-01-02] MEDS: lisinopriL 20 MG TABLET PO (22:25)
[2024-01-02] MEDS: Magnesium Sulfate/H2O 2 GM/50 ML PIGGYBACK IV (22:25)
[2024-01-02 22:27] VITALS: BP 144/98; PULSE 105; RESP 14; TEMP 37.3; O2SAT 96
[2024-01-03 00:23] VITALS: BP 126/75; PULSE 124; RESP 14; TEMP 37.4; O2SAT 97
[2024-01-03] MEDS: LORazepam 1 MG TABLET 2 MG PO (01:56)
[2024-01-03 02:00] VITALS: BP 130/88; PULSE 125; RESP 16; TEMP 36.4; O2SAT 98
== END 2024-01-03 02:06 | disposition home or self-care (01) ==
PROVIDERS: Emergency Provider Internal Medicine; PCP Family Medicine
DX: F10.10 Alcohol abuse, uncomplicated (principal); U07.1 COVID-19; F41.9 Anxiety disorder, unspecified; R07.9 Chest pain, unspecified; R00.2 Palpitations; Z11.52 Encounter for screening for COVID-19; Z20.828 Contact with and (suspected) exposure to other viral communicable diseases
CPT/HCPCS: 36415; 71045; 80053; 80307; 83735; 84484; 85025; 87635; 93005; 96361; 96365; 96375; 99284; 99285; J2060; J2405; J3475

== ENCOUNTER → 2024-01-02 18:22 | Outpatient (BNV) | payer MEDICAID, SELFPAY | PROVIDERS: Emergency Provider Internal Medicine; PCP Family Medicine; Visit Provider Internal Medicine | DX: R00.0 Tachycardia, unspecified (principal); R94.31 Abnormal electrocardiogram [ECG] [EKG] | CPT/HCPCS: 93010 ==

== ENCOUNTER 2024-01-04 11:40 | Outpatient (REF) | payer MEDICAID, SELFPAY ==
[2024-01-04 14:01] LABS: Basophils Absolute Auto 0.1 X10*3/uL (0.0-0.2); Basophils Percent Auto 0.8 % (0-2); Eosinophils Absolute Auto 0.2 X10*3/uL (0.0-0.4); Eosinophils Percent Auto 1.6 % (0-4); Hemoglobin 11.3 g/dl (12.0-16.0); Imm Gran Abs Auto 0.05 X10*3/uL (0.00-0.03); Imm Gran Pct Auto 0.5 % (0.0-0.4); Lymphocytes Absolute Auto 2.7 X10*3/uL (1.2-4.9); Lymphocytes Percent Auto 26.8 % (20-40); MANUAL DIFF FLAG SCAN; Mean Corpuscular HGB Conc 33.2 g/dl (31.0-35.0); Mean Corpuscular Hemoglobin 29.4 pg (27.0-33.0); Mean Corpuscular Volume 88.3 fL (80.0-98.0); Monocytes Absolute Auto 0.6 X10*3/uL (0.1-1.2); Monocytes Percent Auto 5.5 % (2-11); Neutrophils Absolute Auto 6.5 x10*3/uL (2.0-8.3); Neutrophils Percent Auto 64.8 % (45-73); PLT CLUMP 1; Red Blood Count 3.85 X10*6/uL (4.20-5.50); Red Cell Distribution Width 14.6 % (11.0-16.0); SCAN SMEAR FLAG 1
[2024-01-04 14:09] LABS: Alanine Aminotransferase 28 U/L (0-31); Albumin Level 4.5 g/dL (3.5-5.0); Alkaline Phosphatase 96 U/L (39-117); Anion Gap 19 (12-20); Aspartate Amino Transferase 28 U/L (5-31); Bilirubin Direct 0.1 mg/dL (0.0-0.5); Bilirubin Total 0.4 mg/dL (0.0-1.0); Blood Urea Nitrogen 23 mg/dL (9-16); Calcium 10.1 mg/dL (8.4-10.2); Carbon Dioxide 25 mmol/L (22-29); Chloride 98 mmol/L (96-108); Estimated Glomerular Filt Rate 46; Glucose Random 125 mg/dL (60-115); Magnesium 1.7 mg/dL (1.6-2.6); Potassium 3.5 mmol/L (3.3-5.1); Sodium 138 mmol/L (135-145); Total Protein 8.4 g/dL (6.5-8.0)
[2024-01-04 14:12] LABS: Ferritin 775 ng/mL (10-250); Vitamin D 25-OH Total 106.4 ng/mL (>30)
[2024-01-04 14:16] LABS: Mean Platelet Volume 11.4 fL (9.4-12.3); Platelet Count 260 X10*3/uL (160-400)
[2024-01-04 14:17] LABS: SLIDE REVIEW VERIFIED
[2024-01-04 14:27] LABS: Parathyroid Hormone Intact 76.3 pg/mL (8.7-77.1)
[2024-01-04 14:34] LABS: Microalbum/Creatinine Ratio Ur 10.9 ug/mg cr (<30)
== END 2024-01-04 11:41 | disposition home or self-care (01) ==
LOC: HO.HHCL 11:40
PROVIDERS: Visit Provider Family Medicine
DX: E83.52 Hypercalcemia (principal); F41.9 Anxiety disorder, unspecified; N18.31 Chronic kidney disease, stage 3a; E83.42 Hypomagnesemia; F10.10 Alcohol abuse, uncomplicated; D50.9 Iron deficiency anemia, unspecified
CPT/HCPCS: 36415; 80053; 80076; 82043; 82248; 82306; 82570; 82728; 83735; 83970; 85025

== ENCOUNTER 2024-01-14 06:12 | Outpatient (REF) | payer MEDICAID, SELFPAY | END 2024-01-14 06:13 | disposition home or self-care (01) | LOC: CF 06:12 | PROVIDERS: Visit Provider Internal Medicine | DX: M17.11 Unilateral primary osteoarthritis, right knee (principal); M25.561 Pain in right knee; M25.562 Pain in left knee; G89.29 Other chronic pain | CPT/HCPCS: 64555; C1778 ==

== ENCOUNTER 2024-01-14 13:24 | Outpatient (AMB) | payer MEDICAID, SELFPAY ==
--- NOTE | 2024-01-14 14:00 | MHC.OFFVIS ---
Intake Vital Signs 01/14/24 14:19 01/14/24 14:21 Height 5 ft 7 in Weight 163 lb BMI 25.5 BP 128/82 122/80 Blood Pressure Location Lt brachial Lt brachial Position Sitting Sitting Respiration 18 16 Pulse 94 96 Pulse Source Pulse Oximeter Pulse Oximeter Pulse Oximetry (%) 98 97 Oxygen Delivery Method Room Air Room Air Comment Pre-Op Post-Op Intake Visit Reasons: Right SN Sprint Allergies amoxicillin [AMOXICILLIN] Allergy (Intermediate, Verified 01/02/24 18:33) rash, rash/itching sulfamethoxazole [From BACTRIM] Allergy (Intermediate, Verified 01/02/24 18:33) RASH trimethoprim [From BACTRIM] Allergy (Intermediate, Verified 01/02/24 18:33) RASH hydrocodone [Hydrocodone] Allergy (Mild, Verified 01/02/24 18:33) ITCH ibuprofen [From Motrin] Allergy (Mild, Verified 01/02/24 18:33) UPSET STOMACH latex [Latex] Allergy (Mild, Verified 01/02/24 18:33) ITCH HPI Right SN Sprint HPI Details Patient presents for scheduled procedure. Denies any recent cough, cold, infection, fever or other significant changes in medical history since last office visit. FORMERLY [facility], [facility]1983 Medical History Depression Anxiety and depression Lower back pain History of COVID-19 Uncontrolled hypertension Panic attack H/O ETOH abuse Anxiety History of low potassium Breast cancer Hypertension Surgical History History of carpal tunnel release Hx of tubal ligation History of breast lump/mass excision H/O: hysterectomy Family History Mother Heart disease Alzheimers disease Social History Household Members: Other Housing: Apartment Do you presently have visiting nurse or other home services: No Alcohol intake: current Alcohol intake frequency: a few times a week Alcohol type: hard liquor Comment: refused alarms Patient Tobacco Use Status: Current everyday Tobacco user Tobacco use type: Cigarette Cigarettes Per Day: 2 Second Hand Smoke Exposure: Yes Advance Directives Date on File: 02/11/22 service: No Current occupational status: disabled Physical Exam Vital Signs: Last Vital Signs Pulse 96 01/14/24 14:21 Resp 16 01/14/24 14:21 BP 122/80 01/14/24 14:21 Pulse Ox 97 01/14/24 14:21 Oxygen Delivery Method Room Air 01/14/24 14:21 BMI result Body Mass Index 25.5 Office Procedures Details: Peripheral Nerve Stimulation Temporary Lead Placement, Ultrasound-Guided, Saphenous Nerve, Right ? After the risks, benefits and alternatives were discussed with the patient and informed consentwas obtained, patient was placed in the supine position and padded to foster comfort. Appropriate skin and bony landmarks were identified, and pertinent vascular structures were located. The skin overlying the needle entry site was prepped and draped in sterile fashion. Ultrasound was used to identify the femoral artery, the femoral vein and the saphenous nerve. After identifying and marking the intended target along the course of the saphenous nerve, the skin around the planned entry point and the subcutaneous tissues were injected with local anesthetic. An introducer needle and stimulating probe were assembled, inserted and advanced along the intended course of the saphenous nerve, taking care to maintain the proper depth of insertion as the introducer was advanced under ultrasound guidance. The introducer needle was delivered to a location in proximity to the nerve taking care not to puncture the femoral artery or the vein. Multiple stimulation parameters were used to deliver stimulation to the saphenous nerve in concert with stimulating at multiple positions around the nerve. Nerve target acquisition was confirmed noting generation of sensory and mild motor effects (paresthesia, muscle tension, etc) in the medial knee, leg and ankle; corresponding to the distribution of the saphenous nerve. Various electrical parameter combinations were tested, and the lead location was adjusted (physically relocated under ultrasound guidance) until the patient indicated medial knee paresthesia and tension overlapping the distribution of the patient?s typical region of pain. The stimulating probe was removed from the introducer and a percutaneous lead was guided through the needle and delivered to a location in similar proximity to the nerve. Final location was verified with electrical stimulation and documented. The introducer needle was removed, and the exposed end of the percutaneous lead was attached to an external stimulator unit. Various electrical parameter combinations were again tested until the patient indicated paresthesia and muscle tension overlapping the distribution of the patient?s typical region of pain. After confirming that lead impedance was in the normal range, the external unit was detached, the needle was removed, and the lead was anchored at the skin. The lead was threaded into the connector block and electrical continuity and desired patient response was confirmed. The connector block was attached to the external stimulator unit. The site was covered with a sterile occlusive dressing. A final ultrasound image was taken to document final placement. The patient was observed for stability of vital signs and comfort. Sprint PNS Device: Sprint PNS Device [id number] Percutaneous Peripheral Neuroelectrode Procedure: 78556 - Percutaneous Peripheral Neuroelectrode Procedure code (CPT) selection complete Office Meds lidocaine (PF) 50 mg/5 mL (1 %) injection syringe Performing Provider: Bina Griffin APRN, TONNY Performing Location: [facility] Administered by: Lina Gore LPN on 01/14/24 14:00 Dose Route Admin Location Dispensed Lot Number Expiration Date [facility] Baking Powder Mixer 5 mL subcut 5 mL Assessment & Plan Assessment & Plan (1) Osteoarthritis of right knee: Code(s): M17.11 - Unilateral primary osteoarthritis, right knee (2) Bilateral knee pain: Code(s): M25.561 - Pain in right knee; M25.562 - Pain in left knee Qualifiers: Chronicity: chronic Qualified Code(s): M25.561 - Pain in right knee; M25.562 - Pain in left knee; G89.29 - Other chronic pain Plan Patient is status post temporary right saphenous nerve stimulator placement. Patient tolerated procedure well and was discharged home in stable condition with discharge instructions. All questions were answered. We will follow-up via telephone or in clinic to assess response to therapy. A follow-up appointment was made during today's visit. Orders: Orders AMB Sprint PNS Today M17.11 - Unilateral primary osteoarthritis, right knee Bina Griffin APRN, SASH FINISHER US guide needle placement Today M25.561 - Pain in right knee, M25.562 - Pain in left knee Raj Spann MD Coding Level of Care Code Procedure Only Diagnoses Osteoarthritis of right knee M17.11 Chronic pain of both knees M25.561; M25.562; G89.29 Chronicity: chronic CPT Codes Sprint PNS - Sprint PNS Device: Sprint PNS Device ([id number]) Sprint PNS - SPRINT: 36345 - Percutaneous Peripheral Neuroelectrode ([id number]) Implantable Device Implantable Device Implantable Devices Qty Baking Powder Mixer Implant Date Expiration Date Analgesic PENS system 1 [facility] [employer] 01/14/24 02/27/25
[2024-01-14 14:19] VITALS: BP 128/82; PULSE 94; RESP 18; O2SAT 98; BMI 25.5
[2024-01-14 14:21] VITALS: BP 122/80; PULSE 96; RESP 16; O2SAT 97
== END 2024-01-14 14:23 | disposition home or self-care (01) ==
LOC: HO.PMCPRC 13:24
PROVIDERS: PCP Family Medicine; Visit Provider Internal Medicine
DX: M17.11 Unilateral primary osteoarthritis, right knee (principal); M25.561 Pain in right knee; M25.562 Pain in left knee; G89.29 Other chronic pain
CPT/HCPCS: 64555

== ENCOUNTER 2024-01-29 14:33 | Outpatient (REF) | payer MEDICAID, SELFPAY ==
--- NOTE | ~2024-01-29 | XR_ITS ---
EXAMINATION: XR FOOT, RIGHT CLINICAL INFORMATION: Right heel pain. Rule out stress fracture. COMPARISON: None available. TECHNIQUE: AP, lateral, and oblique views of the right foot. FINDINGS: Bone alignment is normal. No fracture or dislocation. Normal joint spaces. Large calcaneal spurs. Soft tissue swelling over the Achilles tendon insertion / osteophyte. XR/XR foot RT min 3V IMPRESSION: No fracture seen. Large calcaneal spurs.
== END 2024-01-29 14:34 | disposition home or self-care (01) ==
LOC: HO.HHCX 14:33
PROVIDERS: Visit Provider Registered Nurse
DX: M79.671 Pain in right foot (principal)
CPT/HCPCS: 73630

== ENCOUNTER 2024-02-24 08:45 | Outpatient (REF) | payer MEDICAID, SELFPAY ==
[2024-02-24 12:09] LABS: Estimated Average Glucose 111 mg/dL; Hemoglobin A1c % 5.5 % (<6.0)
[2024-02-24 12:16] LABS: Anion Gap 12 (12-20); Blood Urea Nitrogen 29 mg/dL (9-16); Calcium 9.9 mg/dL (8.4-10.2); Carbon Dioxide 28 mmol/L (22-29); Chloride 104 mmol/L (96-108); Estimated Glomerular Filt Rate > 60; Glucose Random 127 mg/dL (60-115); Magnesium 1.5 mg/dL (1.6-2.6); Potassium 4.1 mmol/L (3.3-5.1); Sodium 140 mmol/L (135-145)
[2024-02-24 18:36] LABS: Appearance Urine Clear; Color Urine Yellow; Glucose Urine UA Negative (Negative); Leukocyte Esterase Urine Negative (Negative); Nitrite Urine Negative (Negative); Specific Gravity - Urine 1.015 (1.005-1.025); Urine Blood Negative (Negative); Urine Ketones Trace mg/dL (Negative); Urine Protein Negative (Neg-Trace)
[2024-02-25 05:39] LABS: HIV AB/AG Nonreactive (Nonreactive); HIV Num 1 0.05 S/CO (0.00-0.99); ~HepC Num1 0.06 S/CO (0.00-0.79); ~Hepatitis C Antibody Nonreactive (Nonreactive)
== END 2024-02-24 08:46 | disposition home or self-care (01) ==
LOC: HO.HHCL 08:45
PROVIDERS: Emergency Medicine; Visit Provider Nurse Practitioner Primary Care
DX: Z11.3 Encounter for screening for infections with a predominantly sexual mode of transmission (principal); Z11.4 Encounter for screening for human immunodeficiency virus [HIV]; E83.42 Hypomagnesemia; R73.09 Other abnormal glucose
CPT/HCPCS: 36415; 80048; 81003; 83036; 83735; 86803; 87389

== ENCOUNTER 2024-02-24 10:09 | Outpatient (REF) | payer MEDICAID, SELFPAY ==
[2024-02-24 11:36] LABS: MANUAL DIFF FLAG NO
[2024-02-24 11:47] LABS: Basophils Absolute Auto 0.1 X10*3/uL (0.0-0.2); Basophils Percent Auto 0.9 % (0-2); Eosinophils Absolute Auto 0.3 X10*3/uL (0.0-0.4); Hematocrit 29.7 % (37.0-47.0); Hemoglobin 9.6 g/dl (12.0-16.0); Imm Gran Abs Auto 0.04 X10*3/uL (0.00-0.03); Imm Gran Pct Auto 0.4 % (0.0-0.4); Lymphocytes Absolute Auto 2.1 X10*3/uL (1.2-4.9); Lymphocytes Percent Auto 23.6 % (20-40); Mean Corpuscular HGB Conc 32.3 g/dl (31.0-35.0); Mean Corpuscular Hemoglobin 30.1 pg (27.0-33.0); Mean Corpuscular Volume 93.1 fL (80.0-98.0); Mean Platelet Volume 10.5 fL (9.4-12.3); Monocytes Absolute Auto 0.6 X10*3/uL (0.1-1.2); Monocytes Percent Auto 6.4 % (2-11); Neutrophils Absolute Auto 5.9 x10*3/uL (2.0-8.3); Neutrophils Percent Auto 65.7 % (45-73); Platelet Count 443 X10*3/uL (160-400); Red Blood Count 3.19 X10*6/uL (4.20-5.50); Red Cell Distribution Width 14.8 % (11.0-16.0); White Blood Count 8.9 X10*3/uL (4.8-10.8)
[2024-02-24 12:14] LABS: Alanine Aminotransferase 18 U/L (0-31); Albumin Level 4.1 g/dL (3.5-5.0); Alkaline Phosphatase 99 U/L (39-117); Aspartate Amino Transferase 14 U/L (5-31); Bilirubin Direct < 0.2 mg/dL (0.0-0.5); Bilirubin Total 0.2 mg/dL (0.0-1.0); Lipase 63 U/L (8-78); Total Protein 7.4 g/dL (6.5-8.0)
== END 2024-02-24 10:10 | disposition home or self-care (01) ==
LOC: HO.HHCL 10:09
PROVIDERS: Visit Provider Emergency Medicine
DX: R10.11 Right upper quadrant pain (principal)
CPT/HCPCS: 36415; 80076; 83690; 85025; 87086

== ENCOUNTER 2024-03-11 09:00 | Outpatient (AMB) | payer MEDICAID, SELFPAY ==
--- NOTE | 2024-03-11 09:12 | A.OFFVIS_ITS ---
Vital Signs 03/11/24 09:14 Height 5 ft 7 in Weight 164 lb BMI 25.7 BP 121/85 Blood Pressure Location Lt brachial Position Sitting Respiration 14 Pulse 115 H Pulse Source Pulse Oximeter Pulse Oximetry (%) 96 Oxygen Delivery Method Room Air Intake Visit Reasons: Sprint removal Allergies amoxicillin [AMOXICILLIN] Allergy (Intermediate, Verified 03/11/24 09:16) rash, rash/itching sulfamethoxazole [From BACTRIM] Allergy (Intermediate, Verified 03/11/24 09:16) RASH trimethoprim [From BACTRIM] Allergy (Intermediate, Verified 03/11/24 09:16) RASH hydrocodone [Hydrocodone] Allergy (Mild, Verified 03/11/24 09:16) ITCH ibuprofen [From Motrin] Allergy (Mild, Verified 03/11/24 09:16) UPSET STOMACH latex [Latex] Allergy (Mild, Verified 03/11/24 09:16) ITCH Medication List - Last Reconciled 03/11/24 by Lina Gore LPN acetaminophen 1 tab PO Q6-8H PRN [ACL defiance brace n/a] albuterol sulfate 90 mcg/actuation 2 puffs inhalation Q4-6H PRN benzonatate 200 mg PO TID PRN carvedilol 1 tab PO BID chlorthalidone 1 tab PO DAILY cholecalciferol (vitamin D3) (Vitamin D3) 1 cap PO QAM cyclobenzaprine 10 mg PO TID PRN docusate sodium 1 cap PO BID PRN fluoxetine (Prozac) 10 mg PO DAILY folic acid 1 tab PO DAILY hydrocortisone 2.5% (Proctosol HC) 1 appl ND BID-QID PRN lidocaine 5% 1 patch topical DAILY PRN lisinopril 40 mg PO QAM lorazepam (Ativan) 1 mg PO TID PRN magnesium oxide 400 mg PO BIDPC 30 days tovqqusghzwp-havc-zeyga acid 18-400 mg-mcg (Certavite-Antioxidant) 1 tab PO DAILY omeprazole 1 cap PO DAILY@0630 polyethylene glycol 3350 (Miralax) 238 grams PO ONCE sennosides (Natural Senna Laxative) 17.2 mg (2 x 8.6 mg) PO BEDTIME thiamine HCl (vitamin B1) 1 tab PO DAILY HPI HPI Sprint removal: Details: 48-year-old female who presents today to the office for a sprint removal. She reports no improvement from saphenous nerve stimulation trial. She saw an orthopedic surgeon, who referred her back to us. She was unable to pass the device intensity beyond 46. The pain was getting worse, so she turned off the device one week ago. She is not too keen on proceeding with a permanent nerve stimulator implant as a next step as she does not want to pay the co-pay for psychological clearance. Past procedures 01/14/24: Peripheral Nerve Stimulation Temporary Lead Placement, Ultrasound- Guided, Saphenous Nerve, Right: No relief. 07/31/23: Right adductor canal saphenous nerve block, ultrasound-guided: Diagnostic relief for the duration of the anesthetic. 11/05/22: Lumbar Medial Branch Block, Bilateral L3, L4 medial branches and L5 Dorsal Ramus (2 levels, 3 nerves)- 100% relief. [facility] Medical History Depression Anxiety and depression Lower back pain History of COVID-19 Uncontrolled hypertension Panic attack H/O ETOH abuse Anxiety History of low potassium Breast cancer Hypertension Surgical History History of carpal tunnel release Hx of tubal ligation History of breast lump/mass excision H/O: hysterectomy Family History Mother Heart disease Alzheimers disease Social History Household Members: Other Housing: Apartment Do you presently have visiting nurse or other home services: No Alcohol intake: current Alcohol intake frequency: a few times a week Alcohol type: hard liquor Comment: refused alarms Patient Tobacco Use Status: Current everyday Tobacco user Tobacco use type: Cigarette Cigarettes Per Day: 2 Second Hand Smoke Exposure: Yes Advance Directives Date on File: 02/11/22 service: No Current occupational status: disabled Review of Systems Const All systems reviewed & are unremarkable except as noted in HPI and below Physical Exam Vital Signs: Last Vital Signs Pulse 115 H 03/11/24 09:14 Resp 14 03/11/24 09:14 BP 121/85 03/11/24 09:14 Pulse Ox 96 03/11/24 09:14 Oxygen Delivery Method Room Air 03/11/24 09:14 BMI result Body Mass Index 25.7 General: Appears afebrile. Alert and oriented. Mood and affect appropriate. Follows and participates in conversation appropriately. Respiratory effort is unlabored. Able to transition from sit to stand unassisted. Ambulates with bilaterally normal heel strike and toe off. Results Reviewed Results Reviewed: No imaging is available for review. Assessment & Plan Assessment & Plan (1) Osteoarthritis of right knee: Code(s): M17.11 - Unilateral primary osteoarthritis, right knee Category: Medical (2) Bilateral knee pain: Code(s): M25.561 - Pain in right knee; M25.562 - Pain in left knee Category: Medical Qualifiers: Chronicity: chronic Qualified Code(s): M25.561 - Pain in right knee; M25.562 - Pain in left knee; G89.29 - Other chronic pain Plan I recommended following up with Dr. Gates for surgical interventions as an option, including potential TKR. She will follow up with Dr. Gates and discuss her surgical options; if she is deemed not surgical, then we will proceed with the trial of the Curonix nerve stimulator implant. Discussed permanent nerve stimulators as a possible treatment option. I will place a referral for psychology clearance. Once we have received psychology clearance, we will plan for a trial of the Curonix nerve stimulator implant. The patient will receive a call from [facility] for the psychology assessment. I provided the patient with the brochure. She will let us know if she decides to move forward with the implant after meeting with orthopedics. Scribed for Dr. Spann by Gregorio Willoughby, manager medical writing, on 03/11/2024. I, Dr. Spann, have personally reviewed and agree with the information entered by the scribe. Coding Level of Care Code Est Pt Level 3 (90771) Diagnoses Osteoarthritis of right knee M17.11 Chronic pain of both knees M25.561; M25.562; G89.29 Chronicity: chronic
[2024-03-11 09:14] VITALS: BP 121/85; PULSE 115; RESP 14; O2SAT 96; BMI 25.7
== END 2024-03-11 09:28 | disposition home or self-care (01) ==
PROVIDERS: PCP Family Medicine; Referring Provider Family Medicine; Visit Provider Internal Medicine
DX: M17.11 Unilateral primary osteoarthritis, right knee (principal); M25.561 Pain in right knee; M25.562 Pain in left knee; G89.29 Other chronic pain
CPT/HCPCS: 99213

== ENCOUNTER → 2024-03-11 09:00 | Outpatient (BNVA) | payer MEDICAID, SELFPAY | PROVIDERS: PCP Family Medicine; Visit Provider Internal Medicine | DX: M17.11 Unilateral primary osteoarthritis, right knee (principal); G89.29 Other chronic pain; M25.562 Pain in left knee | CPT/HCPCS: 99212 ==

== ENCOUNTER 2024-04-09 21:10 | Inpatient (IN) | payer MEDICAID, SELFPAY ==
--- NOTE | 2024-04-09 | ECG_ITS ---
Test Reason : TACHYCARDIA Blood Pressure : / mmHG Vent. Rate : 106 BPM Atrial Rate : 106 BPM P-R Int : 176 ms QRS Dur : 082 ms QT Int : 364 ms P-R-T Axes : 069 -06 063 degrees QTc Int : 483 ms Sinus tachycardia Otherwise normal ECG When compared with ECG of 02-JAN-2024 18:26, Nonspecific T wave abnormality has replaced inverted T waves in Lateral leads Referred By: Generic ED Physician Electronically Signed By:DANO TRIPP
[2024-04-09 21:17] VITALS: BP 151/104; PULSE 132; RESP 24; TEMP 36.6; O2SAT 97; BMI 24.8
--- NOTE | 2024-04-09 21:48 | PC.NURSE ---
pt brought from waiting room to room 9. attempt to awake overnight monitor with security and patient refusing awake overnight monitor. Dr. Granger and head charger attempt and aware. pt reports she is not suicidal and she never made those statements. pt states if she has to awake overnight monitor/put phone away she is going to leave. patient is axox4 ambulated with steady gait to room. last drink 2 days ago per pt, denies seizure with alcohol withdrawals.
[2024-04-09 21:50] LABS: Hematocrit 37.5 % (37.0-47.0); Hemoglobin 12.8 g/dl (12.0-16.0); Mean Corpuscular HGB Conc 34.1 g/dl (31.0-35.0); Mean Corpuscular Hemoglobin 30.7 pg (27.0-33.0); Mean Corpuscular Volume 89.9 fL (80.0-98.0); Mean Platelet Volume 9.8 fL (9.4-12.3); Platelet Count 342 X10*3/uL (160-400); Red Blood Count 4.17 X10*6/uL (4.20-5.50); Red Cell Distribution Width 14.6 % (11.0-16.0)
--- NOTE | 2024-04-09 22:00 | ED_ITS ---
HPI - Alcohol General Chief Complaint: Psychiatric Symptoms Stated Complaint: alcohol withdrawal Time Seen by Provider: 04/09/24 21:54 Source: patient Mode of arrival: ambulatory History of Present Illness ED Provider: Dr Granger HPI narrative: This is a 48-year-old female with known alcoholic use disorder, reports her last alcoholic drink was 2 days ago and is also intermittently endorsing suicidal ideation as well as having a plan, states she attempted to call [facility] and for help but was unable to reach them and continues to endorse that she is having a mental breakdown but wants help with alcohol detox. She denies any prior seizures from alcohol withdrawal. Related Data Home Medications ?Medication ?Instructions ?Recorded ?Confirmed folic acid 1 mg tablet 1 tab PO DAILY 09/30/21 03/11/24 omeprazole 20 mg capsule,delayed 1 cap PO DAILY@0630 09/30/21 03/11/24 release thiamine HCl (vitamin B1) 100 mg 1 tab PO DAILY 09/30/21 03/11/24 tablet lisinopril 40 mg tablet 40 mg PO QAM 10/15/21 03/11/24 acetaminophen 500 mg tablet 1 tab PO Q6-8H PRN fever 06/04/22 03/11/24 carvedilol 3.125 mg tablet 1 tab PO BID 06/04/22 03/11/24 chlorthalidone 25 mg tablet 1 tab PO DAILY 06/04/22 03/11/24 cholecalciferol (vitamin D3) 25 1 cap PO QAM 06/04/22 03/11/24 mcg (1,000 unit) capsule (Vitamin D3) docusate sodium 100 mg capsule 1 cap PO BID PRN Constipation 06/04/22 03/11/24 multivitamin-ferrous 1 tab PO DAILY 06/04/22 03/11/24 fumarate-folic acid 18 mg-400 mcg tablet (Certavite-Antioxidant) Previous Rx's ?Medication ?Instructions ?Recorded ACL defiance brace #1 ea 07/29/21 albuterol sulfate 90 mcg/actuation 2 puff inhalation Q4-6H PRN 09/12/21 aerosol inhaler shortness of breath or wheezing #8.5 grams magnesium oxide 400 mg (241.3 mg 400 mg PO BIDPC 30 days #60 tabs 10/02/21 magnesium) tablet lidocaine 5 % topical patch 1 patch topical DAILY PRN pain #60 06/22/23 ea cyclobenzaprine 10 mg tablet 10 mg PO TID PRN muscle spasm #15 08/08/23 tabs hydrocortisone 2.5 % topical cream 1 appl [place] BID-QID PRN hemorrhoids 10/02/23 with perineal applicator #30 grams (Proctosol HC) polyethylene glycol 3350 17 238 g PO ONCE #238 grams 10/02/23 gram/dose oral powder (Miralax) benzonatate 200 mg capsule 200 mg PO TID PRN cough #30 caps 01/03/24 fluoxetine 10 mg capsule (Prozac) 10 mg PO DAILY #30 caps 01/03/24 lorazepam 1 mg tablet (Ativan) 1 mg PO TID PRN alcohol withdrawal 01/03/24 #20 tabs sennosides 8.6 mg tablet (Natural 17.2 mg (2 x 8.6 mg) PO BEDTIME 01/13/24 Senna Laxative) constipation #60 tabs Allergies Allergy/AdvReac Type Severity Reaction Status Date / Time amoxicillin [AMOXICILLIN] Allergy Intermediate rash, Verified 04/09/24 21:26 rash/itching sulfamethoxazole Allergy Intermediate RASH Verified 04/09/24 21:26 [From BACTRIM] trimethoprim [From BACTRIM] Allergy Intermediate RASH Verified 04/09/24 21:26 hydrocodone [Hydrocodone] Allergy Mild ITCH Verified 04/09/24 21:26 ibuprofen [From Motrin] Allergy Mild UPSET Verified 04/09/24 21:26 STOMACH latex [Latex] Allergy Mild ITCH Verified 04/09/24 21:26 Review of Systems 2 Review of Systems: Pertinent positives and negatives as stated in HPI [facility] Past Medical History Source: nursing notes reviewed Medical History Depression Anxiety and depression Lower back pain History of COVID-19 Uncontrolled hypertension Panic attack H/O ETOH abuse Anxiety History of low potassium Breast cancer Hypertension Surgical History History of carpal tunnel release Hx of tubal ligation History of breast lump/mass excision H/O: hysterectomy Family History Family History Mother Heart disease Alzheimers disease Social History Social History Household Members: Other Housing: Apartment Do you presently have visiting nurse or other home services: No Alcohol intake: current Alcohol intake frequency: a few times a week Alcohol type: hard liquor Comment: refused alarms Patient Tobacco Use Status: Current everyday Tobacco user Tobacco use type: Cigarette Cigarettes Per Day: 2 Second Hand Smoke Exposure: Yes Advance Directives: Yes Advance Directives on File: Yes Advance Directives Date on File: 02/11/22 service: No Current occupational status: disabled Physical Exam ED Vital Signs: Vital Signs - 24 hr 04/09/24 21:17 04/09/24 22:49 Temperature 97.8 F Pulse Rate 132 H 111 H Respiratory Rate 24 H 18 Blood Pressure 151/104 H 141/90 H Pulse Oximetry 97 98 Oxygen Delivery Method Room Air Room Air BMI result Body Mass Index 24.8 VITAL SIGNS: Reviewed. GENERAL: Well developed, well nourished, in no acute distress. HEAD: Normocephalic/atraumatic EYES: PERRLA, EOMI EARS: Ext canals without abnormality NOSE: Nares patent bilateral OROPHARYNX: no oral lesions noted, posterior pharynx clear NECK: Supple, no adenopathy LUNGS: Normal breath sounds. No adventitious sounds or accessory muscle use. SpO2<98> CARDIOVASCULAR: Regular rate and rhythm without noted murmurs ABDOMEN: Soft, non-tender, non-distended with bowel sounds. MUSCULOSKELETAL: No tenderness, deformities, or effusions noted on gross inspection. EXTREMITIES: No cyanosis, clubbing or edema. SKIN: Inspection of the skin reveals no rashes NEUROLOGIC: Alert and oriented x 4. Strength and sensation to light touch were grossly intact x 4, cranial nerves 2-12 are grossly intact. Medical Decision Making Medical Decision Making MDM Narrative: 48-year-old female who on arrival is very agitated, on the phone with a friend of hers, states that she wants to undergo alcohol detox and initially denies suicidal ideation but then recounts and states that she has had a plan and that she is experiencing a mental breakdown. 2149: Patient now stating that she had a plan to harm herself, triage note states that patient endorsed to them that she was suicidal. Patient placed on a section 12. I reviewed all investigations and hematologic indices are negative for leukocytosis/anemia/thrombocytopenia. Chemistry indices are negative for BENIGNO but there is an obvious metabolic acidosis with anion gap most consistent with alcoholic ketoacidosis. Liver enzymes are noted to be mildly elevated to include alkaline phosphatase with a normal lipase. [id number] INTERVENTION: 1:1/-/CIWA/Phenobarb protocol/IVF/CARE Team consult 2777: I discussed the case with inpatient hospitalist who accepts admission. Differential Diagnosis Differential Diagnoses: The differential diagnosis associated with the presentation includes Please see the discussion Admission/Observation Consideration of admission/observation: Escalation of care including admission/observation considered Please see the discussion above Consult Healthcare Provider Management of the patient was discussed with: Hospitalist Please see the discussion above Lab Data MDM Lab Attestation statement: I reviewed the patient's lab results. Please see the discussion above 04/09/24 21:40 04/09/24 21:40 Labs: Lab Results 04/09/24 Range/Units 21:40 WBC 9.0 (4.8-10.8) X10*3/uL RBC 4.17 L D (4.20-5.50) X10*6/uL Hgb 12.8 D (12.0-16.0) g/dl Hct 37.5 D (37.0-47.0) % MCV 89.9 (80.0-98.0) fL MCH 30.7 (27.0-33.0) pg MCHC 34.1 (31.0-35.0) g/dl RDW 14.6 (11.0-16.0) % Plt Count 342 (160-400) X10*3/uL MPV 9.8 (9.4-12.3) fL Absolute Nucleated RBC 0.000 (0.0-0.012) X10*3/uL Nucleated RBC % (auto) 0.0 (0.0-0.2) /100WBC Sodium 139 (135-145) mmol/L Potassium 3.9 (3.3-5.1) mmol/L Chloride 98 (96-108) mmol/L Carbon Dioxide 16 L (22-29) mmol/L Anion Gap 29 H (12-20) BUN 22 H (9-16) mg/dL Creatinine 1.35 (0.5-1.4) mg/dL Estim Creat Clear Calc 48.5 Estimated GFR 42 Random Glucose 76 (60-115) mg/dL Calcium 9.8 (8.4-10.2) mg/dL Magnesium 1.7 (1.6-2.6) mg/dL Total Bilirubin 0.4 (0.0-1.0) mg/dL AST 70 H (5-31) U/L ALT 65 H (0-31) U/L Alkaline Phosphatase 118 H (39-117) U/L Total Protein 8.6 H (6.5-8.0) g/dL Albumin 4.8 (3.5-5.0) g/dL Ethyl Alcohol 408 H* mg/dL External Record Review External record reviewed: Outpatient record, Prior outpatient labs and Prior outpatient radiology Chronic Conditions Patient?s care impacted by: Hypertension Social Determinants Patient?s care significantly limited by Social Determinants of Health including: Alcoholism and drug addiction in family Medications Administered Generic Name Dose Route Start Last Admin Trade Name Freq PRN Reason Stop Dose Admin Phenobarbital Sodium 295 mg 04/09/24 23:00 04/09/24 22:49 Phenobarbital Sodium 130 Mg/Ml Im Once IM 04/09/24 23:01 295 mg ONCE ONE Administration Protocol Discontinued Medications Generic Name Dose Route Start Last Admin Trade Name Freq PRN Reason Stop Dose Admin Lorazepam 1 mg 04/09/24 22:28 04/09/24 22:48 Lorazepam 1 Mg Tablet PO 04/09/24 22:29 1 mg ONCE ONE Administration Critical Care Time Critical Care Time Critical Care Time: Yes Total Critical Care Time: 60 Attestation: I personally attest to this time spent taking care of the patient. Discharge Plan Discharge Clinical Impression: Alcohol intoxication, Suicidal ideation, Alcoholic ketoacidosis Patient Disposition: Admitted As Inpatient Print Language: [place]
--- NOTE | 2024-04-09 22:03 | PC.NURSE ---
Addendum entered by Jamal Whitt 04/09/24 22:12: 1:1 sitter at bedside. 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 pt refused to tell plan. pt changed over by security, clothes/phone/manager culinary/keys place in pod locker.
[2024-04-09 22:10] LABS: Alanine Aminotransferase 65 U/L (0-31); Albumin Level 4.8 g/dL (3.5-5.0); Alkaline Phosphatase 118 U/L (39-117); Anion Gap 29 (12-20); Aspartate Amino Transferase 70 U/L (5-31); Bilirubin Total 0.4 mg/dL (0.0-1.0); Blood Urea Nitrogen 22 mg/dL (9-16); Calcium 9.8 mg/dL (8.4-10.2); Carbon Dioxide 16 mmol/L (22-29); Chloride 98 mmol/L (96-108); Creatinine Clr Calc Pharmacy 48.5; Estimated Glomerular Filt Rate 42; Ethanol 408 mg/dL; Glucose Random 76 mg/dL (60-115); Magnesium 1.7 mg/dL (1.6-2.6); Potassium 3.9 mmol/L (3.3-5.1); Sodium 139 mmol/L (135-145); Total Protein 8.6 g/dL (6.5-8.0)
--- NOTE | 2024-04-09 22:17 | PC.NURSE ---
pt came to the ed and stated in triage that she was seeking help for detox and has been drinking to alot. pt also called to talk about s1. on arrival to room 9 pt did states that she has a plan. pt is yelling out. pt has been changed over with security present. pt reluctant to give her phone and is crying. provider at bedside and has seen the pt. pt phone is locked up with her belongings. pt is not allowed to leave and is going to the pod.
--- NOTE | 2024-04-09 22:29 | PC.NURSE ---
pt is under a s12 at this time, pt is not going to the pod due to lab values are off and pt will be admitted and will be under the phenobarbital protocol. sitter at bedside.
--- NOTE | 2024-04-09 22:42 | PC.NURSE ---
2x attempt to establish iv, no success. another RN attempt now.
[2024-04-09] MEDS: LORazepam 1 MG TABLET PO (22:48)
[2024-04-09 22:49] VITALS: BP 141/90; PULSE 111; RESP 18; O2SAT 98
[2024-04-09] MEDS: PHENobarbitaL sodium 130 MG/ML IM ONCE 295 MG IM (22:49)
[2024-04-09 23:02] LABS: Bilirubin Direct 0.2 mg/dL (0.0-0.5); Lipase 63 U/L (8-78)
--- NOTE | 2024-04-09 23:02 | PM.IMHP ---
History of Present Illness Date of Service: 04/10/24 Chief Complaint: Alcohol withdrawal This is a 47-year-old female with pertinent history of alcohol use disorder, essential hypertension, gastroesophageal reflux disease who presents to the emergency department for concerns of alcohol withdrawal. Patient states she has been drinking a lot of alcohol over the last 1 week. Her last alcoholic drink was 2 days ago. Since then, patient has been feeling anxious and has been having tremors. Also has been having nausea and sweating. Endorses visual hallucination. Does have a history of alcohol withdrawal in the past, no history of alcohol withdrawal seizures. States she has been drinking due to uncontrolled anxiety. Does not take anything for mood but wants to try something to control her anxiety. Patient states she is motivated to quit and wants information for detox. She denies fever, chills, chest discomfort, shortness of breath, abdominal pain, changes in urinary or bowel habits. Patient was also suicidal upon arrival in the ER In the emergency department, CIWA found to be elevated and patient was initiated on phenobarb protocol. Review of Systems Constitutional: Constitutional: Reports fatigue, Reports lethargy, Reports malaise, Reports poor appetite and Reports weakness Cardiovascular: Cardiovascular: Reports no additional cardiovascular complaints Respiratory: Respiratory: Reports no additional respiratory complaints Gastrointestinal: Gastrointestinal: Reports no additional gastrointestinal complaints and Reports nausea Genitourinary: Genitourinary: Reports no additional female genitourinary complaints Neurologic: Reports tremor(s) and Reports weakness Psychiatric: Psychiatric: Reports anxiety, Reports visual hallucinations and Reports suicidal ideation Endocrine: Endocrine: Reports fatigue [facility] Medical History Depression Anxiety and depression Lower back pain History of COVID-19 Uncontrolled hypertension Panic attack H/O ETOH abuse Anxiety History of low potassium Breast cancer Hypertension Family History Mother Heart disease Alzheimers disease Surgical History History of carpal tunnel release Hx of tubal ligation History of breast lump/mass excision H/O: hysterectomy Social History Household Members: Other Housing: Apartment Do you presently have visiting nurse or other home services: No Alcohol intake: current Alcohol intake frequency: 3 or more drinks per day Alcohol type: hard liquor Comment: refused alarms Patient Tobacco Use Status: Never used Tobacco Tobacco use type: Cigarette Cigarettes Per Day: 2 Smoked in Last 30 Days: No Second Hand Smoke Exposure: Yes Use of substances other than those prescribed or required for medical reasons: No Advance Directives: Yes Advance Directives on File: Yes Advance Directives Date on File: 02/11/22 Nutrition Risks: No Nutritional Risk service: No Current occupational status: disabled Meds Allergies Allergy/AdvReac Type Severity Reaction Status Date / Time amoxicillin [AMOXICILLIN] Allergy Intermediate rash, Verified 04/09/24 21:26 rash/itching sulfamethoxazole Allergy Intermediate RASH Verified 04/09/24 21:26 [From BACTRIM] trimethoprim [From BACTRIM] Allergy Intermediate RASH Verified 04/09/24 21:26 hydrocodone [Hydrocodone] Allergy Mild ITCH Verified 04/09/24 21:26 ibuprofen [From Motrin] Allergy Mild UPSET Verified 04/09/24 21:26 STOMACH latex [Latex] Allergy Mild ITCH Verified 04/09/24 21:26 Active Medications: Current Medications Sodium Chloride (Ns) 1,000 mls @ 999 mls/hr IV .Q1H1M CLAUDIA Stop: 04/09/24 23:30 Thiamine HCl 100 mg/ Sodium (Chloride) 101 mls @ 202 mls/hr IV DAILY CLAUDIA Dextrose/Lactated Ringer's (D5lr) 1,000 mls @ 125 mls/hr IVCONT .Q8H ONE Stop: 04/10/24 06:59 Pharmacy Consult (Consult Rx Etoh Phenob Im/Po) 1 each MISCELLANE ONCE PRN; Protocol PRN Reason: Consult order Phenobarbital (Phenobarbital 15 Mg Tablet) 45 mg PO BID CLAUDIA; Protocol Stop: 04/11/24 21:01 Phenobarbital (Phenobarbital 30 Mg Tablet) 30 mg PO BID CLAUDIA; Protocol Stop: 04/13/24 21:01 Phenobarbital (Phenobarbital 30 Mg Tablet) 30 mg PO DAILY CLAUDIA; Protocol Stop: 04/15/24 09:01 Phenobarbital Sodium (Phenobarbital Sodium 130 Mg/Ml Vial Im Q3hx2) 220 mg IM Q3H CLAUDIA; Protocol Stop: 04/10/24 05:01 Home Medications ?Medication ?Instructions ?Recorded ?Confirmed ?Last Taken ?Type folic acid 1 mg tablet 1 tab PO DAILY 11/29/21 05/10/24 08/03/23 History omeprazole 20 mg capsule,delayed 1 cap PO DAILY@0630 09/30/21 03/11/24 06/04/23 History release thiamine HCl (vitamin B1) 100 mg 1 tab PO DAILY 09/30/21 03/11/24 06/04/23 History tablet lisinopril 40 mg tablet 40 mg PO QAM 10/15/21 03/11/24 06/04/23 History acetaminophen 500 mg tablet 1 tab PO Q6-8H PRN fever 06/04/22 03/11/24 06/04/23 History carvedilol 3.125 mg tablet 1 tab PO BID 06/04/22 03/11/24 06/04/23 History chlorthalidone 25 mg tablet 1 tab PO DAILY 06/04/22 03/11/24 06/04/23 History cholecalciferol (vitamin D3) 25 1 cap PO QAM 06/04/22 03/11/24 06/04/23 History mcg (1,000 unit) capsule (Vitamin D3) docusate sodium 100 mg capsule 1 cap PO BID PRN Constipation 06/04/22 03/11/24 06/04/23 History multivitamin-ferrous 1 tab PO DAILY 06/04/22 03/11/24 06/04/23 History fumarate-folic acid 18 mg-400 mcg tablet (Certavite-Antioxidant) Physical Exam Vital Signs and Narrative: Vital Signs: Last Vital Signs Temp 97.8 F 04/09/24 21:17 Pulse 111 H 04/09/24 22:49 Resp 18 04/09/24 22:49 BP 141/90 H 04/09/24 22:49 Pulse Ox 98 04/09/24 22:49 O2 Del Method Room Air 04/09/24 22:49 BMI result Body Mass Index 24.8 Middle-aged female lying in bed in no distress Neck supple, no JVD Tachycardic with regular rhythm, S1-S2 heard Regular breath sounds bilaterally, no wheezing or crackles appreciated Abdomen soft nontender, no guarding, no rigidity Patient is awake, alert and oriented to self, place, time and person ; no focal motor deficit Psych: Anxious No pedal edema Results Labs 04/09/24 21:40 04/09/24 21:40 Labs: Laboratory Results - last 24 hr 04/09/24 21:40 MCV 89.9 MCH 30.7 MCHC 34.1 RDW 14.6 Plt Count 342 MPV 9.8 Absolute Nucleated RBC 0.000 Nucleated RBC % (auto) 0.0 Anion Gap 29 H Estim Creat Clear Calc 48.5 Estimated GFR 42 Random Glucose 76 Calcium 9.8 Magnesium 1.7 Total Bilirubin 0.4 AST 70 H ALT 65 H Alkaline Phosphatase 118 H Total Protein 8.6 H Albumin 4.8 Ethyl Alcohol 408 H* Assessment and Plan (1) Alcoholic ketoacidosis: Status: Acute Plan This is a 47-year-old female with pertinent history of alcohol use disorder, essential hypertension, gastroesophageal reflux disease who presents to the emergency department for concerns of alcohol withdrawal. #. Alcohol use disorder with alcoholic ketoacidosis and concerns for withdrawal. Administered thiamine and dextrose infused fluids. Patient initiated on phenobarb protocol in the ER. Monitor CIWA. On thiamine and folic acid. Consulted addiction team and care team #. Sinus tachycardia in the setting of above #. Suicidal ideation in a patient with uncontrolled anxiety: Consulting Psychiatry. Placed sitter #. Essential hypertension. Continue home antihypertensives #. Gastroesophageal reflux disease. On PPI #. Elevated transaminases due to alcohol use: Outpatient follow-up Med rec DVT prophylaxis: Lovenox Full code Admit as inpatient and will require two night minimum hospital stay for treatment of alcohol withdrawal and alcoholic ketoacidosis (as above), which is not possible in a lesser acute setting. Quality Stroke Does the patient have a stroke diagnosis?: No VTE Prior VTE?: No VTE Risk Level:: Medical - moderate - high VTE Device Contraindication: Treatment Not Indicated VTE Drug Contraindication: N/A - Med Ordered
--- NOTE | 2024-04-09 23:19 | PC.NURSE ---
ultrasound iv established by
[2024-04-09] MEDS: Thiamine HCL 100 MG in 0.9 % Sodium Chloride 100 ML 202 MG IV (23:35)
[2024-04-10] VITALS (7 sets, daily range): BP systolic 128–148; BP diastolic 82–94; PULSE 103–122; RESP 15–18; TEMP 36.4–36.8; O2SAT 96–100; BMI 25.8
[2024-04-10] MEDS: Lactated Ringers 1,000 ML 999 ML IV (00:57)
[2024-04-10] MEDS: Dextrose 5 % and Lactated Ring 1,000 ML 125 ML IVCONT (00:57)
[2024-04-10] MEDS: PHENobarbitaL sodium 130 MG/ML VIAL IM Q3Hx2 220 MG IM ×2 (02:06→05:27)
--- NOTE | 2024-04-10 02:19 | PC.NURSE ---
Addendum entered by Jamal Whitt 04/10/24 03:55: unable to establish u/s iv at this time. aware. Original Note: ultrasound iv infiltrated L. upper arm. iv removed. aware. awaiting floriculture professor to attempt for new u/s IV.
[2024-04-10 02:24] LABS: Appearance Urine Clear; Color Urine Yellow; Glucose Urine UA Negative (Negative); Leukocyte Esterase Urine Negative (Negative); Nitrite Urine Negative (Negative); PH 5.5 (5.0-9.0); Urine Blood Negative (Negative); Urine Ketones 15 mg/dL (Negative); Urine Protein Trace mg/dL (Neg-Trace)
[2024-04-10 02:36] LABS: Amphetamine Screen Urine Not Detected (Not Detect); Barbiturates, Urine Not Detected (Not Detect); Benzodiazepines Screen Urine Not Detected (Not Detect); Buprenorphine Scr Not Detected (Not Detect); Cannabinoid Screen Urine Not Detected (Not Detect); Cocaine Screen Urine Not Detected (Not Detect); Fentanyl, urine Not Detected (Not Detect); Methadone Screen, Urine Not Detected (Not Detect); Opiate Screen Urine Not Detected (Not Detect); Oxycodone Screen Urine Not Detected (Not Detect); Phencyclidine Screen Urine Not Detected (Not Detect)
[2024-04-10 02:43] LABS: Bacteria Urine None Seen (None Seen); Hyaline Casts Urine 0-2 /LPF (0-2); RBC Urine 0-2 /HPF (0-2); Squamous Epithelial Cell Urine 0-2 /HPF (0-2); WBC Urine 0-5 /HPF (0-5)
--- NOTE | 2024-04-10 05:07 | PC.NURSE ---
IJ placed by Dr. Dykes to L. mike. ivf infusing per mar. pt tolerated well. now resting comfortably in stretcher. 1:1 sitter at bedside.
[2024-04-10 05:10] LABS: Hematocrit 33.6 % (37.0-47.0); Hemoglobin 11.3 g/dl (12.0-16.0); Mean Corpuscular HGB Conc 33.6 g/dl (31.0-35.0); Mean Corpuscular Hemoglobin 30.3 pg (27.0-33.0); Mean Corpuscular Volume 90.1 fL (80.0-98.0); Mean Platelet Volume 9.6 fL (9.4-12.3); Platelet Count 305 X10*3/uL (160-400); Red Blood Count 3.73 X10*6/uL (4.20-5.50); Red Cell Distribution Width 14.6 % (11.0-16.0); White Blood Count 6.3 X10*3/uL (4.8-10.8)
[2024-04-10 05:27] LABS: Anion Gap 22 (12-20); Blood Urea Nitrogen 22 mg/dL (9-16); Calcium 9.2 mg/dL (8.4-10.2); Carbon Dioxide 23 mmol/L (22-29); Chloride 100 mmol/L (96-108); Creatinine Clr Calc Pharmacy 52.4; Estimated Glomerular Filt Rate 45; Glucose Random 78 mg/dL (60-115); Potassium 3.7 mmol/L (3.3-5.1); Sodium 141 mmol/L (135-145)
[2024-04-10] MEDS: Lidocaine HCl 1 % MPF 5 ML VIAL INFILTRATI (05:28)
--- NOTE | 2024-04-10 07:06 | P.PNIM_ITS ---
Subjective Subjective Date of Service: 04/10/24 Interval History: f/u on alcoholic ketoacidosis, alcohol intoxication, SI interval history:no active sings of withdrawal, she is now denying SI Physical Exam 2 Vital Signs: Vital Signs: Last Vital Signs Temp 97.8 F 04/09/24 21:17 Pulse 103 H 04/10/24 05:27 Resp 15 04/10/24 05:27 BP 137/86 04/10/24 05:27 Pulse Ox 100 04/10/24 05:27 O2 Del Method Room Air 04/10/24 05:27 BMI result Body Mass Index 24.8 General: AO X 3, no acute distress Resp: CTA bilateral CVS: S1,S2,RRR GI: +BS, NT, no distention Skin: No rash Neuro: motor grossly intact Psych: appropriate affect Objective Data Active Medications Acetaminophen (Acetaminophen 325 Mg Tablet) 650 mg PO Q6H PRN PRN Reason: Pain, Mild (Pain Scale 1-3) Enoxaparin Sodium (Enoxaparin Sodium 40 Mg/0.4 Ml Syringe) 40 mg SUBCUT Q24H [facility] Last Admin: 04/09/24 23:37 Dose: Not Given Documented By: CRISTIANO Non-Admin Reason: Patient Refused Thiamine HCl 100 mg/ Sodium (Chloride) 101 mls @ 202 mls/hr IV DAILY [facility] Last Infusion: 04/10/24 00:05 Dose: Infused Documented By: CRISTIANO Melatonin (Melatonin 3 Mg Tablet) 6 mg PO BEDTIME PRN PRN Reason: Insomnia Ondansetron HCl (Ondansetron Hcl 4 Mg/2 Ml Vial) 4 mg IVPUSH Q8H PRN PRN Reason: Nausea and Vomiting Pharmacy Consult (Consult Rx Etoh Phenob Im/Po) 1 each MISCELLANE ONCE PRN; Protocol PRN Reason: Consult order Phenobarbital (Phenobarbital 15 Mg Tablet) 45 mg PO BID [facility]; Protocol Stop: 04/11/24 21:01 Phenobarbital (Phenobarbital 30 Mg Tablet) 30 mg PO BID [facility]; Protocol Stop: 04/13/24 21:01 Phenobarbital (Phenobarbital 30 Mg Tablet) 30 mg PO DAILY CLAUDIA; Protocol Stop: 04/15/24 09:01 Sodium Chloride (0.9 % Sodium Chloride Flush 3 Ml Syringe) 3 ml IVFLUSH QSHIFT [facility] Last Admin: 04/10/24 01:11 Dose: Not Given Documented By: CRISTIANO Non-Admin Reason: IV Running Labs 04/10/24 05:04 04/10/24 05:04 Labs: Laboratory Results - last 24 hr 04/09/24 04/10/24 04/10/24 21:40 02:15 05:04 MCV 89.9 90.1 MCH 30.7 30.3 MCHC 34.1 33.6 RDW 14.6 14.6 Plt Count 342 305 MPV 9.8 9.6 Absolute Nucleated RBC 0.000 0.000 Nucleated RBC % (auto) 0.0 0.0 Anion Gap 29 H 22 H Estim Creat Clear Calc 48.5 52.4 Estimated GFR 42 45 Random Glucose 76 78 Calcium 9.8 9.2 D Magnesium 1.7 Total Bilirubin 0.4 Direct Bilirubin 0.2 AST 70 H ALT 65 H Alkaline Phosphatase 118 H Total Protein 8.6 H Albumin 4.8 Lipase 63 Urine Color Yellow Urine Appearance Clear Urine pH 5.5 Ur Specific [place] 1.010 Urine Protein Trace Urine Glucose (UA) Negative Urine Ketones 15 Urine Blood Negative Urine Nitrite Negative Ur Leukocyte Esterase Negative Urine RBC 0-2 Urine WBC 0-5 Ur Squamous Epith Cells 0-2 Urine Bacteria None Seen Hyaline Casts 0-2 Urine Opiates Screen Not Detected Ur Buprenorphine Scrn Not Detected Ur Oxycodone Screen Not Detected Urine Methadone Screen Not Detected Urine Fentanyl Screen Not Detected Ur Barbiturates Screen Not Detected Ur Phencyclidine Scrn Not Detected Ur Amphetamines Screen Not Detected U Benzodiazepines Scrn Not Detected Urine Cocaine Screen Not Detected U Marijuana (THC) Screen Not Detected Ethyl Alcohol 408 H* Assessment and Plan (1) Alcoholic ketoacidosis: Status: Acute (2) Suicidal ideation: Status: Acute (3) Alcohol intoxication: Status: Acute Plan 48-year-old female with pertinent history of alcohol use disorder, essential hypertension, gastroesophageal reflux disease who presents to the emergency department for concerns of alcohol withdrawal. Alcohol use disorder with alcoholic ketoacidosis; at risk for withdrawal. Acidosis resolved. -continue phenobarbital, IVF, Folic acid thiamine, addiction med consult Sinus tachycardia in the setting of above, much improved Depression/Suicidal/anxiety -Psych consult for med management -CARE team consult when medically ready for dc HTN: hold Lisinorpil and chlorthalidone d/t mild impairment in renal function, reassess tomorrow GERD On PPI Elevated transaminases due to alcohol use: Outpatient follow-up DVT prophylaxis: Lovenox Full code Admit as inpatient and will require two night minimum hospital stay for treatment of alcohol withdrawal and alcoholic ketoacidosis (as above), which is not possible in a lesser acute setting. Quality Stroke Does the patient have a stroke diagnosis?: No VTE Prior VTE?: No VTE Risk Level:: Medical - moderate - high VTE Device Contraindication: Treatment Not Indicated VTE Drug Contraindication: N/A - Med Ordered
[2024-04-10] MEDS: Thiamine HCL 100 MG in 0.9 % Sodium Chloride 100 ML IV (08:31)
[2024-04-10] MEDS: PHENobarbitaL 15 MG TABLET 45 MG PO ×2 (08:31→20:37)
--- NOTE | 2024-04-10 08:38 | PC.NURSE ---
this RN resumed care of pt at 0700. a&ox4. vss and up to date. pt medicated per provider order. pt denies pain but states slight nausea. updated CIWA = 8. pt denies SI/HI. pt verbalizes feeling suicidal last week but since then feelings have subsided. IVF continues to infuse at 125mls/hr. no sob/wob noted. respirations even/unlabored. pt waiting for bed assignment. plan of care ongoing. call cavanaugh placed within reach.
--- NOTE | 2024-04-10 09:10 | PHA.MEDREC ---
Pharmacy Consult ? Medication Reconciliation Pharmacy has completed the medication reconciliation. Spoke with patient to confirm medications, reports that she is not currently taking oxcarbazepine.
[2024-04-10] MEDS: carvediloL 3.125 MG TABLET PO ×2 (10:27→20:37)
[2024-04-10] MEDS: Omeprazole 20 MG CAPSULE.DR PO (10:27)
[2024-04-10] MEDS: Cholecalciferol (Vitamin D3) 25 MCG TABLET PO (10:27)
--- NOTE | 2024-04-10 10:27 | PC.NURSE ---
medication administered per provider order. pt verbalizing she has restless leg syndrome/requesting medication. admitting provider notified/aware. no new orders at this time. 1:1 sitter remains present.
[2024-04-10] MEDS: Acetaminophen 325 MG TABLET 650 MG PO ×2 (11:58→20:37)
--- NOTE | 2024-04-10 11:58 | PC.NURSE ---
pt verbalizing discomfort in legs bilaterally - prn tylenol utilized. effectiveness pending.
--- NOTE | 2024-04-10 13:36 | MHC.CM.PN ---
Patient lives in an apartment alone. Her son is her CAMP BOSS, 1 hour/day. Denies use of any DME. PCP Shereen Latham MD HCP on file and verified. 1:1 at bedside for SI. DP: Pending CARE eval. Home self care w/ son transporting vs CARE team intervention. CM will continue to follow.
--- NOTE | 2024-04-10 13:43 | PC.NURSE ---
admission worksheet complete at this time. transport notified/aware.
[2024-04-10] MEDS: Magnesium Oxide 400 MG TABLET PO (16:46)
[2024-04-10] MEDS: 0.9 % Sodium Chloride Flush 3 ML SYRINGE IVFLUSH ×2 (16:47→20:38)
[2024-04-10] MEDS: Sennosides 8.6 MG TABLET PO (20:37)
[2024-04-10] MEDS: Melatonin 3 MG TABLET 6 MG PO (20:37)
[2024-04-10] MEDS: LORazepam 1 MG TABLET PO (20:38)
[2024-04-10] MEDS: Enoxaparin Sodium 40 MG/0.4 ML SYRINGE SUBCUT (22:35)
[2024-04-11 03:09] VITALS: BP 139/89; PULSE 100; RESP 16; TEMP 36.6; O2SAT 95
[2024-04-11] MEDS: Acetaminophen 325 MG TABLET 650 MG PO (05:24)
[2024-04-11] MEDS: Omeprazole 20 MG CAPSULE.DR PO (05:50)
[2024-04-11 06:05] LABS: Anion Gap 18 (12-20); Blood Urea Nitrogen 15 mg/dL (9-16); Calcium 9.4 mg/dL (8.4-10.2); Carbon Dioxide 26 mmol/L (22-29); Chloride 97 mmol/L (96-108); Creatinine Clr Calc Pharmacy 65.7; Estimated Glomerular Filt Rate 54; Glucose Random 89 mg/dL (60-115); Potassium 3.7 mmol/L (3.3-5.1); Sodium 137 mmol/L (135-145)
[2024-04-11 07:27] VITALS: BP 147/96; PULSE 94; RESP 12; TEMP 36.4; O2SAT 99
[2024-04-11 07:38] LABS: Glucose, Whole Blood 96 mg/dL (60-115)
[2024-04-11] MEDS: Thiamine HCL 100 MG TABLET PO (07:49)
[2024-04-11] MEDS: Folic Acid 1 MG TABLET PO (07:49)
[2024-04-11] MEDS: PHENobarbitaL 15 MG TABLET 45 MG PO (07:49)
[2024-04-11] MEDS: Cholecalciferol (Vitamin D3) 25 MCG TABLET PO (07:50)
[2024-04-11] MEDS: Magnesium Oxide 400 MG TABLET PO (07:50)
[2024-04-11] MEDS: 0.9 % Sodium Chloride Flush 3 ML SYRINGE IVFLUSH (07:50)
[2024-04-11] MEDS: Multivitamin TABLET 1 TAB PO (07:50)
[2024-04-11] MEDS: carvediloL 3.125 MG TABLET PO (07:50)
[2024-04-11] MEDS: ondansetron HCL 4 MG/2 ML VIAL IVPUSH (10:57)
--- NOTE | 2024-04-11 11:18 | PC.NURSE ---
Per Care team pt does not need in patient psych bed. Per MD Smith pt does not need 1:1 sitter. Sitter DC this shift. Pts belongings brought to bedside. Per Care team pt ok to have.
--- NOTE | 2024-04-11 11:26 | PM.DS ---
DS: Providers Provider Date of Service: 04/11/24 Date of admission: 04/09/24 23:00 Primary care physician: Shereen Latham MD Consults: 04/09/24 23:02 Addiction Medicine Routine Consulting Provider: Addiction Covering Reason for consultation: alcohol use disorder 04/09/24 23:03 Consult for Sitter Routine Reason for consultation: SI Consult to Psychiatry Routine Consulting Provider: Psych Covering Reason for consultation: SI 04/09/24 23:05 Consult to Care Team Stat Comment: Reason for consultation: Suicidal ideation with a plan 04/11/24 07:55 Consult to Care Team Routine Comment: Reason for consultation: Medically clear for dc DS: Diagnosis Discharge Diagnosis (1) Alcoholic ketoacidosis: Status: Acute (2) Suicidal ideation: Status: Acute (3) Alcohol intoxication: Status: Acute DS: Summary Hospital Course Hospital Course: admission hpi Chief Complaint: Alcohol withdrawal This is a 47-year-old female with pertinent history of alcohol use disorder, essential hypertension, gastroesophageal reflux disease who presents to the emergency department for concerns of alcohol withdrawal. Patient states she has been drinking a lot of alcohol over the last 1 week. Her last alcoholic drink was 2 days ago. Since then, patient has been feeling anxious and has been having tremors. Also has been having nausea and sweating. Endorses visual hallucination. Does have a history of alcohol withdrawal in the past, no history of alcohol withdrawal seizures. States she has been drinking due to uncontrolled anxiety. Does not take anything for mood but wants to try something to control her anxiety. Patient states she is motivated to quit and wants information for detox. She denies fever, chills, chest discomfort, shortness of breath, abdominal pain, changes in urinary or bowel habits. Patient was also suicidal upon arrival in the ER In the emergency department, CIWA found to be elevated and patient was initiated on phenobarb protocol. hospital course: The patient presented with symptoms indicative of early alcohol withdrawal, and laboratory tests confirmed alcoholic ketoacidosis. She initially reported suicidal thoughts, though she later denied having any intention to harm herself. She was admitted to the hospital and treated with intravenous fluids , which resolved both the alcoholic ketoacidosis and sinus tachycardia. For alcohol withdrawal, phenobarbital was administered, and she was subsequently assessed by the addiction medicine team, who provided community resources for alcohol cessation. Regarding her reported suicidal ideation, she reiterated that she had no intention of self-harm. The CARE team evaluated her and deemed her fit for discharge, providing her with crisis contact information. She was advised to continue her usual medications and to follow up with her primary care provider (PCP). Final diagnosis alcoholic ketoacidosis alcohol withdrawal Time Attestation Discharge Coordination Time (in mins): 35 Quality: Safe Use of Opioids Does Pt have an Active Cancer Diagnosis on the Problem List?: No Quality: Stroke Does the patient have a stroke diagnosis?: No Physical Exam Vital Signs: Vital Signs: Last Vital Signs Temp 97.5 F 04/11/24 07:27 Pulse 94 04/11/24 07:27 Resp 12 04/11/24 07:27 BP 147/96 H 04/11/24 07:27 Pulse Ox 99 04/11/24 07:27 O2 Del Method Room Air 04/11/24 07:27 BMI result Body Mass Index 25.8 DS: Data Data Completed and Pending Completed studies during hospitalization [Text1]: Procedures Detoxification Services for Substance Abuse Treatment (06/05/23) Labs on day of discharge: Laboratory Results - last 24 hr 04/11/24 04/11/24 05:32 07:29 Hold Purple Top SEE NOTE Sodium 137 Potassium 3.7 Chloride 97 Carbon Dioxide 26 Anion Gap 18 BUN 15 Creatinine 1.08 Estim Creat Clear Calc 65.7 Estimated GFR 54 POC Glucose 96 Random Glucose 89 Calcium 9.4 Discharge Plan Discharge Anticipated Discharge Date/Time: 04/11/24 11:23 Patient Disposition: Home, Self-Care Discharge Diagnosis: Alcoholic ketoacidosis, at risk for alcohol withdrawal Referrals: Shereen Latham MD [Primary Care Provider] - 1 Week Discharge Medications: Continued (DME) ACL defiance brace See Rx Instructions .ROUTE .MEDSUPPLY Qty: 1 0RF Rx Instructions: n/a albuterol sulfate 90 mcg/actuation HFA aerosol inhaler 2 puff inhalation Q4-6H PRN (Reason: shortness of breath or wheezing) Qty: 8.5 0RF thiamine HCl (vitamin B1) 100 mg tablet 1 tab PO DAILY omeprazole 20 mg capsule,delayed release(DR/EC) 1 cap PO DAILY@0630 folic acid 1 mg tablet 1 tab PO DAILY magnesium oxide 400 mg (241.3 mg magnesium) Tablet 400 mg PO BIDPC 30 Days Qty: 60 0RF chlorthalidone 25 mg tablet 1 tab PO DAILY carvedilol 3.125 mg tablet 1 tab PO BID docusate sodium 100 mg capsule 1 cap PO BID PRN (Reason: Constipation) cholecalciferol (vitamin D3) [Vitamin D3] 25 mcg (1,000 unit) capsule 1 cap PO QAM Certavite-Antioxidant 18-400 mg-mcg tablet 1 tab PO DAILY acetaminophen 500 mg tablet 1 tab PO Q6-8H PRN (Reason: fever) cetirizine 10 mg tablet 10 mg PO DAILY PRN (Reason: allergies) diclofenac sodium 1 % gel 1 g topical TID PRN (Reason: pain) sennosides [Natural Senna Laxative] 8.6 mg tablet 8.6 mg PO BEDTIME lisinopril 40 mg tablet 40 mg PO QAM Discharge Orders: Discharge Order (Routine); Ordered 04/11/24 Ordered By: Monroe Smith Diet: Advance to usual diet Activity on Discharge: As tolerated Stand Alone Forms: Patient Portal Discharge page Print Language: [place] Care Plan Goals: to help achieve and maintain sobriety while improving overall well-being. Health Concerns: alcoholism Plan of Treatment: Avoid alcohol and follow through the resources given to you by our addiction medicine team follow up with your doctor in a week Assessment: see above
--- NOTE | 2024-04-11 12:09 | MHC.CM.PN ---
DP: PT HAS BEEN MEDICALLY CLEARED FOR DC HOME, NO SERVICES. SON WILL TRANSPORT HOME.
--- NOTE | 2024-04-11 17:20 | HO.ADDICTPRO ---
Subjective Subjective Date of Service: 04/11/24 Reason For Visit: alcohol withdrawal Interim History: Patient medically admitted for alcohol withdrawal. Seen by ACS during previous ED visits or admissions. Patient sitting up in bed, awake, alert and reporting that she is ready to go home Patient appearing somewhat irritable with discussion of drinking, stating that she can go weeks without drinking, but when she gets stressed out that is the only way she knows how to deal with it. She went on to say that noone helps her when she asks for help. this senior mortgage underwriter inquired what she would like help with-she responded with my mental health, my depression . This senior mortgage underwriter offered potential options which she was not pleased with --reporting that she lives on the 4th floor and she can't go up an down the stairs to attend appts because of her knee pain. This senior mortgage underwriter then offered telehealth options, which she responded by saying that she doesn't know how to use her phone for those types of visits. This senior mortgage underwriter concluded interview as it was apparent patient was not in a place to discuss next steps related to drinking or even her depression. Son was present in the room and stating that they had to leave as well Review of Systems Constitutional: Reports as per HPI Mental Status Exam Mental Status Exam Patient Appearance: Appropriate Level of Consciousness: Awake and Restless Patient Behavior: Appropriate Affect Description: Constricted (irritable ) Diagnostics Vital Signs (24Hr): Vital Signs - 24 hr 04/10/24 19:25 04/10/24 20:00 04/10/24 20:37 Temperature 98.2 F Pulse Rate 115 H 107 H 107 H Respiratory Rate 18 Blood Pressure 137/94 H 141/90 H 141/90 H Pulse Oximetry 97 97 Oxygen Delivery Method Room Air Room Air 04/11/24 03:09 04/11/24 07:27 Temperature 97.9 F 97.5 F Pulse Rate 100 94 Respiratory Rate 16 12 Blood Pressure 139/89 147/96 H Pulse Oximetry 95 99 Oxygen Delivery Method Room Air Room Air BMI result Body Mass Index 25.8 Labs 04/10/24 05:04 04/11/24 05:32 Labs: Laboratory Results - last 48 hr 04/09/24 04/10/24 04/10/24 21:40 02:15 05:04 WBC 9.0 6.3 RBC 4.17 L D 3.73 L Hgb 12.8 D 11.3 L Hct 37.5 D 33.6 L MCV 89.9 90.1 MCH 30.7 30.3 MCHC 34.1 33.6 RDW 14.6 14.6 Plt Count 342 305 MPV 9.8 9.6 Absolute Nucleated RBC 0.000 0.000 Nucleated RBC % (auto) 0.0 0.0 Hold Purple Top Sodium 139 141 Potassium 3.9 3.7 Chloride 98 100 Carbon Dioxide 16 L 23 Anion Gap 29 H 22 H BUN 22 H 22 H Creatinine 1.35 1.25 Estim Creat Clear Calc 48.5 52.4 Estimated GFR 42 45 POC Glucose Random Glucose 76 78 Calcium 9.8 9.2 D Magnesium 1.7 Total Bilirubin 0.4 Direct Bilirubin 0.2 AST 70 H ALT 65 H Alkaline Phosphatase 118 H Total Protein 8.6 H Albumin 4.8 Lipase 63 Urine Color Yellow Urine Appearance Clear Urine pH 5.5 Ur Specific [place] 1.010 Urine Protein Trace Urine Glucose (UA) Negative Urine Ketones 15 Urine Blood Negative Urine Nitrite Negative Ur Leukocyte Esterase Negative Urine RBC 0-2 Urine WBC 0-5 Ur Squamous Epith Cells 0-2 Urine Bacteria None Seen Hyaline Casts 0-2 Urine Opiates Screen Not Detected Ur Buprenorphine Scrn Not Detected Ur Oxycodone Screen Not Detected Urine Methadone Screen Not Detected Urine Fentanyl Screen Not Detected Ur Barbiturates Screen Not Detected Ur Phencyclidine Scrn Not Detected Ur Amphetamines Screen Not Detected U Benzodiazepines Scrn Not Detected Urine Cocaine Screen Not Detected U Marijuana (THC) Screen Not Detected Ethyl Alcohol 408 H* 04/11/24 04/11/24 05:32 07:29 WBC RBC Hgb Hct MCV MCH MCHC RDW Plt Count MPV Absolute Nucleated RBC Nucleated RBC % (auto) Hold Purple Top SEE NOTE Sodium 137 Potassium 3.7 Chloride 97 Carbon Dioxide 26 Anion Gap 18 BUN 15 Creatinine 1.08 Estim Creat Clear Calc 65.7 Estimated GFR 54 POC Glucose 96 Random Glucose 89 Calcium 9.4 Magnesium Total Bilirubin Direct Bilirubin AST ALT Alkaline Phosphatase Total Protein Albumin Lipase Urine Color Urine Appearance Urine pH Ur Specific [place] Urine Protein Urine Glucose (UA) Urine Ketones Urine Blood Urine Nitrite Ur Leukocyte Esterase Urine RBC Urine WBC Ur Squamous Epith Cells Urine Bacteria Hyaline Casts Urine Opiates Screen Ur Buprenorphine Scrn Ur Oxycodone Screen Urine Methadone Screen Urine Fentanyl Screen Ur Barbiturates Screen Ur Phencyclidine Scrn Ur Amphetamines Screen U Benzodiazepines Scrn Urine Cocaine Screen U Marijuana (THC) Screen Ethyl Alcohol Medications Allergies Allergies Allergy/AdvReac Type Severity Reaction Status Date / Time amoxicillin [AMOXICILLIN] Allergy Intermediate rash, Verified 04/09/24 21:26 rash/itching sulfamethoxazole Allergy Intermediate RASH Verified 04/09/24 21:26 [From BACTRIM] trimethoprim [From BACTRIM] Allergy Intermediate RASH Verified 04/09/24 21:26 hydrocodone [Hydrocodone] Allergy Mild ITCH Verified 04/09/24 21:26 ibuprofen [From Motrin] Allergy Mild UPSET Verified 04/09/24 21:26 STOMACH latex [Latex] Allergy Mild ITCH Verified 04/09/24 21:26 Assessment & Plan Assessment & Plan (1) Alcohol use disorder, severe, dependence: Status: Acute Code(s): F10.20 - Alcohol dependence, uncomplicated Assessment and Plan: no recommendations at this time patient appears to be in precontemplation statge of change Total time managing care of this patient today __15__ minutes.
== END 2024-04-11 12:18 | disposition home or self-care (01) | DRG 754 ==
LOC: HO.ED 22:28 → HO.EDOVER 23:07 → HO.S3 04-10 13:33
PROVIDERS: Admitting Provider Student in an Organized Health Care Education/Training Program; Emergency Provider Student in an Organized Health Care Education/Training Program; PCP Family Medicine; Visit Provider Internal Medicine
DX: F32.A Depression, unspecified (principal); E87.29 Other acidosis; R45.851 Suicidal ideations; F10.239 Alcohol dependence with withdrawal, unspecified; F10.229 Alcohol dependence with intoxication, unspecified; F17.210 Nicotine dependence, cigarettes, uncomplicated; F41.9 Anxiety disorder, unspecified; K21.9 Gastro-esophageal reflux disease without esophagitis; I10 Essential (primary) hypertension; Y90.8 Blood alcohol level of 240 mg/100 ml or more; Z71.6 Tobacco abuse counseling; Z91.040 Latex allergy status; Z79.899 Other long term (current) drug therapy
CPT/HCPCS: 36415; 80048; 80053; 80307; 81001; 82248; 82947; 83690; 83735; 85027; 93005; 99285; J1650; J2405; J2560; J3411; J7120; S9485

== ENCOUNTER → 2024-04-09 21:27 | Outpatient (BNV) | payer MEDICAID, SELFPAY | PROVIDERS: Admitting Provider Student in an Organized Health Care Education/Training Program; Emergency Provider Student in an Organized Health Care Education/Training Program; PCP Family Medicine; Visit Provider Internal Medicine | DX: R00.0 Tachycardia, unspecified (principal) | CPT/HCPCS: 93010 ==

== ENCOUNTER → 2024-04-09 23:00 | Outpatient (BNV) | payer OTHER, SELFPAY | PROVIDERS: Admitting Provider Student in an Organized Health Care Education/Training Program; Emergency Provider Student in an Organized Health Care Education/Training Program; PCP Family Medicine; Visit Provider Nurse Practitioner Psychiatric/Mental Health | DX: F10.20 Alcohol dependence, uncomplicated (principal) | CPT/HCPCS: 99231 ==

== ENCOUNTER → 2024-04-09 23:00 | Outpatient (BNV) | payer MEDICAID, SELFPAY | PROVIDERS: Admitting Provider Student in an Organized Health Care Education/Training Program; Emergency Provider Student in an Organized Health Care Education/Training Program; PCP Family Medicine; Visit Provider Student in an Organized Health Care Education/Training Program | DX: E87.29 Other acidosis (principal); R45.851 Suicidal ideations; F10.929 Alcohol use, unspecified with intoxication, unspecified | CPT/HCPCS: 99223; 99232; 99239 ==

== ENCOUNTER 2024-04-20 21:29 | Emergency (ER) | payer MEDICAID, SELFPAY ==
--- NOTE | ~2024-04-20 | XR_ITS ---
EXAMINATION: XR ANKLE, LEFT CLINICAL INFORMATION: Pain. COMPARISON: None available. TECHNIQUE: Three views of the left ankle. FINDINGS: No fracture. No dislocation. Ankle mortise congruent. Small spur at the inferior tip of the medial malleolus and at the medial talar tubercle. Plantar calcaneal spur. Spur at the posterior calcaneus at the insertion of Achilles tendon XR/XR ankle LT min 3V IMPRESSION: 1. No acute abnormality. 2. Small spur at the inferior tip of medial malleolus and medial talar tubercle. 3. Plantar calcaneal spur.
[2024-04-20 21:36] VITALS: BP 150/94; BP 164/107; PULSE 112; PULSE 113; RESP 16; TEMP 36.7; O2SAT 100; O2SAT 98; BMI 25.0
[2024-04-20 21:38] VITALS: BP 164/107; PULSE 112; RESP 18; TEMP 36.7; O2SAT 98
[2024-04-20 22:40] VITALS: BP 163/100; PULSE 132; RESP 18; TEMP -13; TEMP 8.6; O2SAT 99
[2024-04-20] MEDS: Acetaminophen 325 MG TABLET 975 MG PO (23:14)
[2024-04-20] MEDS: Metoprolol Tartrate 12.5 MG HALFTAB PO (23:14)
[2024-04-21] MEDS: Colchicine 0.6 MG TABLET PO (00:20)
[2024-04-21] MEDS: Colchicine 0.6 MG TABLET 1.2 MG PO (01:18)
--- NOTE | 2024-04-21 01:19 | ED_ITS ---
HPI - Extremity Injury (Lower) General Chief Complaint: Extremity Injury, Lower Stated Complaint: 10/10 l foot pain Time Seen by Provider: 04/20/24 21:42 Source: patient Mode of arrival: EMS History of Present Illness ED Provider: Dr Granger HPI Narrative: 48-year-old female presents with atraumatic left ankle and foot pain that started earlier today, patient endorses that she does drink alcohol and is unaware of any history of gout. She otherwise denies any fevers or chills. Related Data Home Medications ?Medication ?Instructions ?Recorded ?Confirmed folic acid 1 mg tablet 1 tab PO DAILY 09/30/21 04/10/24 omeprazole 20 mg capsule,delayed 1 cap PO DAILY@0630 09/30/21 04/10/24 release thiamine HCl (vitamin B1) 100 mg 1 tab PO DAILY 09/30/21 04/10/24 tablet lisinopril 40 mg tablet 40 mg PO QAM 10/15/21 04/10/24 acetaminophen 500 mg tablet 1 tab PO Q6-8H PRN fever 06/04/22 04/10/24 carvedilol 3.125 mg tablet 1 tab PO BID 06/04/22 04/10/24 chlorthalidone 25 mg tablet 1 tab PO DAILY 06/04/22 04/10/24 cholecalciferol (vitamin D3) 25 1 cap PO QAM 06/04/22 04/10/24 mcg (1,000 unit) capsule (Vitamin D3) docusate sodium 100 mg capsule 1 cap PO BID PRN Constipation 06/04/22 04/10/24 multivitamin-ferrous 1 tab PO DAILY 06/04/22 04/10/24 fumarate-folic acid 18 mg-400 mcg tablet (Certavite-Antioxidant) cetirizine 10 mg tablet 10 mg PO DAILY PRN allergies 04/10/24 04/10/24 diclofenac sodium 1 % topical gel 1 g topical TID PRN pain 04/10/24 04/10/24 sennosides 8.6 mg tablet (Natural 8.6 mg PO BEDTIME constipation 04/10/24 04/10/24 Senna Laxative) Previous Rx's ?Medication ?Instructions ?Recorded ACL defiance brace #1 ea 07/29/21 albuterol sulfate 90 mcg/actuation 2 puff inhalation Q4-6H PRN 09/12/21 aerosol inhaler shortness of breath or wheezing #8.5 grams magnesium oxide 400 mg (241.3 mg 400 mg PO BIDPC 30 days #60 tabs 10/02/21 magnesium) tablet colchicine 0.6 mg capsule 0.6 mg PO Q2H Ankle Pain #3 caps 04/21/24 Allergies Allergy/AdvReac Type Severity Reaction Status Date / Time amoxicillin [AMOXICILLIN] Allergy Intermediate rash, Verified 04/20/24 21:37 rash/itching sulfamethoxazole Allergy Intermediate RASH Verified 04/20/24 21:37 [From BACTRIM] trimethoprim [From BACTRIM] Allergy Intermediate RASH Verified 04/20/24 21:37 hydrocodone [Hydrocodone] Allergy Mild ITCH Verified 04/20/24 21:37 ibuprofen [From Motrin] Allergy Mild UPSET Verified 04/20/24 21:37 STOMACH latex [Latex] Allergy Mild ITCH Verified 04/20/24 21:37 Review of Systems Review of Systems: Pertinent positives and negatives as stated in HPI [facility] Past Medical History Source: nursing notes reviewed Medical History Depression Anxiety and depression Lower back pain History of COVID-19 Uncontrolled hypertension Panic attack H/O ETOH abuse Anxiety History of low potassium Breast cancer Hypertension Surgical History History of carpal tunnel release Hx of tubal ligation History of breast lump/mass excision H/O: hysterectomy Family History Family History Mother Heart disease Alzheimers disease Social History Social History Household Members: None Housing: Apartment Do you presently have visiting nurse or other home services: No Alcohol intake: current Alcohol intake frequency: 3 or more drinks per day Alcohol type: hard liquor Comment: 1:1 SI Patient Tobacco Use Status: Current someday Tobacco user Tobacco use type: Cigarette Cigarettes Per Day: 2 Smoked in Last 30 Days: Yes Second Hand Smoke Exposure: Yes Use of substances other than those prescribed or required for medical reasons: No Advance Directives: Yes Advance Directives on File: Yes Advance Directives Date on File: 02/11/22 Do you have a plan to hurt others: No Plan Patient : No service: No Current occupational status: disabled Physical Exam Vital Signs: Vital Signs: Last Vital Signs Temp 8.6 F L 04/20/24 22:40 Pulse 132 H 04/20/24 22:40 Resp 18 04/20/24 22:40 BP 163/100 H 04/20/24 22:40 Pulse Ox 99 04/20/24 22:40 O2 Del Method Room Air 04/20/24 22:40 BMI result Body Mass Index 25.0 VITAL SIGNS: Reviewed. GENERAL: Well developed, well nourished, in no acute distress. HEAD: Normocephalic/atraumatic EYES: PERRLA, EOMI LUNGS: Normal breath sounds. No adventitious sounds or accessory muscle use. SpO2<99> CARDIOVASCULAR: Regular rate and rhythm without noted murmurs ABDOMEN: Soft, non-tender, non-distended with bowel sounds. MUSCULOSKELETAL: No tenderness, deformities, or effusions noted on gross inspection. EXTREMITIES: No cyanosis, clubbing or edema. LEFT ANKLE: There is swelling over the medial malleolus, no erythema or induration, there is warmth but otherwise foot is warm and neurovascularly intact. SKIN: Inspection of the skin reveals no rashes NEUROLOGIC: Alert and oriented x 4. Strength and sensation to light touch were grossly intact x 4. Medications Administered Discontinued Medications Generic Name Dose Route Start Last Admin Trade Name Freq PRN Reason Stop Dose Admin Acetaminophen 975 mg 04/20/24 22:29 04/20/24 23:14 Acetaminophen 325 Mg Tablet PO 04/20/24 22:30 975 mg ONCE ONE Administration Colchicine 1.2 mg 04/20/24 22:29 04/20/24 23:32 Colchicine 0.6 Mg Tablet PO 04/20/24 22:30 Not Given ONCE ONE Colchicine 0.6 mg 04/21/24 00:16 04/21/24 00:20 Colchicine 0.6 Mg Tablet PO 04/21/24 00:17 0.6 mg ONCE ONE Administration Colchicine 1.2 mg 04/21/24 01:15 04/21/24 01:18 Colchicine 0.6 Mg Tablet PO 04/21/24 01:16 1.2 mg ONCE ONE Administration Metoprolol Tartrate 12.5 mg 04/20/24 23:07 04/20/24 23:14 Metoprolol Tartrate 12.5 Mg Halftab PO 04/20/24 23:08 12.5 mg ONCE ONE Administration Protocol Medical Decision Making Medical Decision Making MDM Narrative: 48-year-old female with history and clinical presentation most consistent with gout, there is no evidence to suggest cellulitis/fracture or dislocation, however will proceed with ankle x-ray and provide initial treatment with Tylenol and load with 1.2 mg of colchicine followed by 0.6 mg of colchicine 1 hour later. Ankle x-ray negative for acute fracture or dislocation, on re-evaluation patient states feeling somewhat better and now able to move the ankle, she received the 0.6 mg of colchicine and will re-evaluate as well as provide 3 more doses for patient to use every 2 hours as needed for persistent pain. Patient was also noted to be hypertensive and tachycardic, likely secondary to pain, patient was provided with 12.5 mg of oral Lopressor and on re-evaluation has had significant improvement in both blood pressure and heart rate. She is otherwise discharged home with instructions to follow-up with the primary care doctor. Differential Diagnosis Differential Diagnoses: The differential diagnosis associated with the presentation includes Please see the discussion above Admission/Observation Consideration of admission/observation: Escalation of care including admission/observation considered Please see the discussion above Radiology Impression Discussion of test interpretation with radiology: I have reviewed the radiologist's reading. Radiologist Impression: Please see the discussion above External Record Review External record reviewed: Outpatient record and Prior outpatient labs Social Determinants Patient?s care significantly limited by Social Determinants of Health including: Alcoholism and drug addiction in family Critical Care Time Critical Care Time Critical Care Time: Yes Total Critical Care Time: 45 Attestation: I personally attest to this time spent taking care of the patient. Discharge Plan Discharge Clinical Impression: Gout flare Patient Disposition: Home, Self-Care Instructions: Low Purine Diet (ED), Gout (ED) Additional Instructions: You are being prescribed with 3 additional doses of 0.6 mg of colchicine, please take the medication as prescribed. Follow-up with primary care doctor. Return to the ER for any worsening symptoms. Prescriptions: New colchicine 0.6 mg capsule 0.6 mg PO Q2H Qty: 3 0RF No Action (DME) ACL defiance brace See Rx Instructions .ROUTE .MEDSUPPLY Qty: 1 0RF Rx Instructions: n/a albuterol sulfate 90 mcg/actuation HFA aerosol inhaler 2 puff inhalation Q4-6H PRN (Reason: shortness of breath or wheezing) Qty: 8.5 0RF thiamine HCl (vitamin B1) 100 mg tablet 1 tab PO DAILY omeprazole 20 mg capsule,delayed release(DR/EC) 1 cap PO DAILY@0630 folic acid 1 mg tablet 1 tab PO DAILY magnesium oxide 400 mg (241.3 mg magnesium) Tablet 400 mg PO BIDPC 30 Days Qty: 60 0RF chlorthalidone 25 mg tablet 1 tab PO DAILY carvedilol 3.125 mg tablet 1 tab PO BID docusate sodium 100 mg capsule 1 cap PO BID PRN (Reason: Constipation) cholecalciferol (vitamin D3) [Vitamin D3] 25 mcg (1,000 unit) capsule 1 cap PO QAM Certavite-Antioxidant 18-400 mg-mcg tablet 1 tab PO DAILY acetaminophen 500 mg tablet 1 tab PO Q6-8H PRN (Reason: fever) cetirizine 10 mg tablet 10 mg PO DAILY PRN (Reason: allergies) diclofenac sodium 1 % gel 1 g topical TID PRN (Reason: pain) sennosides [Natural Senna Laxative] 8.6 mg tablet 8.6 mg PO BEDTIME lisinopril 40 mg tablet 40 mg PO QAM Referrals: Shereen Latham MD [Primary Care Provider] - Print Language: Colombian
[2024-04-21] MEDS: Ibuprofen 800 MG TABLET PO (03:57)
--- NOTE | 2024-04-21 04:09 | PC.NURSE ---
Patient reports worsening pain in left leg and would like to be medicated for pain prior to being discharged home. Dr. Merrill informed, per Dr. Merrill OK to medicate patient with Ibuprofen 800 mg PO with a snack to minimize GI upset. Patient medicated per ROSY, saltine crackers and apple juice given to patient.
[2024-04-21 04:12] VITALS: BP 133/98; PULSE 89; RESP 16; TEMP 37.1; O2SAT 98
== END 2024-04-21 04:13 | disposition home or self-care (01) ==
PROVIDERS: Emergency Provider Student in an Organized Health Care Education/Training Program; PCP Family Medicine
DX: M10.072 Idiopathic gout, left ankle and foot (principal); F17.210 Nicotine dependence, cigarettes, uncomplicated
CPT/HCPCS: 73610; 99283; 99284

== ENCOUNTER 2024-04-25 13:38 | Outpatient (REF) | payer MEDICAID, SELFPAY ==
[2024-04-25 16:40] LABS: Alanine Aminotransferase 13 U/L (0-31); Albumin Level 3.9 g/dL (3.5-5.0); Alkaline Phosphatase 120 U/L (39-117); Anion Gap 14 (12-20); Aspartate Amino Transferase 15 U/L (5-31); Bilirubin Total 0.2 mg/dL (0.0-1.0); Blood Urea Nitrogen 20 mg/dL (9-16); Calcium 10.3 mg/dL (8.4-10.2); Carbon Dioxide 25 mmol/L (22-29); Chloride 104 mmol/L (96-108); Estimated Glomerular Filt Rate > 60; Glucose Random 95 mg/dL (60-115); Potassium 3.5 mmol/L (3.3-5.1); Sodium 139 mmol/L (135-145); Total Protein 7.4 g/dL (6.5-8.0); Uric Acid 7.9 mg/dL (2.4-5.7)
== END 2024-04-25 13:39 | disposition home or self-care (01) ==
LOC: HO.HHCL 13:38
PROVIDERS: Visit Provider Internal Medicine
DX: M10.9 Gout, unspecified (principal)
CPT/HCPCS: 36415; 80053; 84550

== ENCOUNTER 2024-05-11 07:59 | Outpatient (AMB) | payer MEDICAID, SELFPAY ==
--- NOTE | 2024-05-11 08:07 | A.OFFVIS_ITS ---
Vital Signs 05/11/24 08:14 Height 5 ft 7 in Weight 165 lb 5.547 oz BMI 25.9 BP 124/80 Blood Pressure Location Lt brachial Position Sitting Pulse 95 Pulse Source Pulse Oximeter Pulse Oximetry (%) 99 Oxygen Delivery Method Room Air Intake Visit Reasons: Rt Shoulder/lt foot pain ? gout/CM Intake Note: Patient presents for Rt shoulder/left foot pain. Left foot swollen and in lots of pain Allergies amoxicillin [AMOXICILLIN] Allergy (Intermediate, Verified 05/11/24 08:13) rash, rash/itching sulfamethoxazole [From BACTRIM] Allergy (Intermediate, Verified 05/11/24 08:13) RASH trimethoprim [From BACTRIM] Allergy (Intermediate, Verified 05/11/24 08:13) RASH hydrocodone [Hydrocodone] Allergy (Mild, Verified 05/11/24 08:13) ITCH ibuprofen [From Motrin] Allergy (Mild, Verified 05/11/24 08:13) UPSET STOMACH latex [Latex] Allergy (Mild, Verified 05/11/24 08:13) ITCH Medication List - Last Reconciled 05/11/24 by Leta Lunsford MD acetaminophen 1 tab PO Q6-8H PRN [ACL defiance brace n/a] albuterol sulfate 90 mcg/actuation 2 puffs inhalation Q4-6H PRN carvedilol 1 tab PO BID cetirizine 10 mg PO DAILY PRN chlorthalidone 1 tab PO DAILY cholecalciferol (vitamin D3) (Vitamin D3) 1 cap PO QAM colchicine 0.6 mg PO Q2H diclofenac sodium 1% 1 g topical TID PRN docusate sodium 1 cap PO BID PRN folic acid 1 tab PO DAILY lisinopril 40 mg PO QAM magnesium oxide 400 mg PO BIDPC 30 days jehrehclrtjt-bykg-ryryv acid 18-400 mg-mcg (Certavite-Antioxidant) 1 tab PO DAILY omeprazole 1 cap PO DAILY@0630 sennosides (Natural Senna Laxative) 8.6 mg PO BEDTIME thiamine HCl (vitamin B1) 1 tab PO DAILY HPI Comments Details: This is a 48-year-old female with generalized osteoarthritis and fibromyalgia who presents for gout evaluation. About a month ago patient presented to the emergency room with abrupt onset of left ankle and foot pain and swelling. She went to the emergency room, she was prescribed colchicine without much impro vement. She was then prescribed prednisone with improvement. She continues however to have pain and swelling in the left ankle. Patient has history of alcohol misuse and she has been trying to cut down. She continues to have diffuse joint and muscle aches related to her known osteoarthritis of multiple joints and fibromyalgia. She denies history of kidney stones. She denies history similar to current attack. She is unaware of any family history of gout PFSH Medical History Depression Anxiety and depression Lower back pain History of COVID-19 Uncontrolled hypertension Panic attack H/O ETOH abuse Anxiety History of low potassium Breast cancer Hypertension Surgical History History of carpal tunnel release Hx of tubal ligation History of breast lump/mass excision H/O: hysterectomy Family History Mother Heart disease Alzheimers disease Social History Household Members: None Housing: Apartment Do you presently have visiting nurse or other home services: No Alcohol intake: current Alcohol intake frequency: 3 or more drinks per day Alcohol type: hard liquor Comment: 1:1 SI Patient Tobacco Use Status: Current someday Tobacco user Tobacco use type: Cigarette Cigarettes Per Day: 2 Second Hand Smoke Exposure: Yes Advance Directives Date on File: 02/11/22 service: No Current occupational status: disabled Review of Systems Const Reports fatigue, Reports headache(s), Reports weakness and Reports weight loss Eyes Reports dry eyes, Reports itchy eyes, Reports loss of vision and Reports eye pain ENT Reports dizziness, Reports dry mouth, Reports headache(s) and Reports tinnitus Card Reports chest pain and Reports dyspnea Resp Reports cough and Reports dyspnea GI Reports constipation, Reports heartburn and Reports diarrhea Reports nocturia Musc Reports myalgias, Reports arthralgias, Reports joint swelling and Reports stiffness Skin/Breast Reports alopecia and Reports unusual bruising Neuro Reports dizziness, Reports headache(s), Reports loss of vision, Reports memory loss and Reports weakness Psych Reports abnormal sleep pattern, Reports anxiety, Reports depression, Reports irritability, Reports memory loss and Reports mood swings Endo Reports fatigue and Reports polydipsia Aller/Immun Reports itchy eyes Physical Exam Vital Signs: Last Vital Signs Pulse 95 05/11/24 08:14 BP 124/80 05/11/24 08:14 Pulse Ox 99 05/11/24 08:14 Oxygen Delivery Method Room Air 05/11/24 08:14 BMI result Body Mass Index 25.9 Const General: cooperative, healthy appearing, in distress and anxious Nutritional Appearance: overweight Orientation/consciousness: patient oriented x3 Limitations: no limitations HEENT Head: Yes normocephalic and Yes atraumatic Mouth: moist mucous membranes Resp Effort & Inspection: normal respiratory effort and able to speak in complete sentences Auscultation: clear to auscultation bilaterally Cardio Rate: regular rate Rhythm: regular rhythm GI Palpation (GI): Soft to palpation and nontender Skin General skin exam: no rashes or lesions noted Neuro General: patient oriented x3 Extrem Other: Few fibromyalgia tender points Normal nailfold capillaroscopy Bilateral knee crepitus and pain with full flexion-extension no swelling Left dorsal foot swelling, tenderness and warmth Assessment & Plan Assessment & Plan (1) Gout: Code(s): M10.9 - Gout, unspecified Category: Medical Qualifiers: Gout site: foot Gout etiology: idiopathic Chronicity: acute Laterality: left Qualified Code(s): M10.072 - Idiopathic gout, left ankle and foot Plan: This is a 48-year-old female with history of generalized osteoarthritis, fibromyalgia, alcohol misuse who presents for evaluation of acute gout affecting left foot. Per patient this is her 1st attack. She has been taking prednisone for the last 10-15 days without resolution of current gout attack. Discussed gout and its management. Likely current attack is prolonged due to ongoing excessive alcohol consumption. Advised patient to cut down alcohol consumption and stop. Start Medrol taper for relief Start colchicine 0.6 mg Twice daily for prophylaxis Start allopurinol 100 mg daily, plan to repeat acid level before next visit and increase allopurinol dose Patient is on chlorthalidone which is known to increase uric acid levels. I suggest stopping chlorthalidone and switching to another antihypertensive Labs before next visit in 6 weeks Plan I spent 30 minutes reviewing patient's chart, evaluating patient, ordering diagnostic workup, counseling patient and documenting in the chart Orders: Orders Comprehensive Met. Panel 6 Weeks M10.9 - Gout, unspecified Uric Acid 6 Weeks M10.9 - Gout, unspecified HLA B 5701 6 Weeks Z79.899 - Other intermediate manager (current) drug therapy Medications: New methylprednisolone (Medrol) Take 3 tabs daily for 5 days, 2 tabs daily for 5 days, 1 tab daily for 2 weeks then stop 39 tabs 0RF allopurinol 100 mg PO DAILY 60 tabs 0RF colchicine 0.6 mg PO BID 60 tabs 1RF Coding Level of Care Code New Pt Level 3 (72918) Diagnoses Acute idiopathic gout of left foot M10.072 Gout site: foot Gout etiology: idiopathic Chronicity: acute Laterality: left
[2024-05-11 08:14] VITALS: BP 124/80; PULSE 95; O2SAT 99; BMI 25.9
== END 2024-05-11 08:37 | disposition home or self-care (01) ==
PROVIDERS: PCP Family Medicine; Referring Provider Family Medicine; Visit Provider Student in an Organized Health Care Education/Training Program
DX: M10.072 Idiopathic gout, left ankle and foot (principal)
CPT/HCPCS: 99203

== ENCOUNTER → 2024-05-11 07:59 | Outpatient (BNVA) | payer MEDICAID, SELFPAY | PROVIDERS: PCP Family Medicine; Visit Provider Student in an Organized Health Care Education/Training Program | DX: M10.072 Idiopathic gout, left ankle and foot (principal); Z79.899 Other long term (current) drug therapy | CPT/HCPCS: 99202 ==

== ENCOUNTER 2024-06-16 08:09 | Outpatient (REF) | payer MEDICAID, SELFPAY ==
[2024-06-16 11:24] LABS: MANUAL DIFF FLAG NO
[2024-06-16 11:29] LABS: Basophils Percent Auto 0.6 % (0-2); Eosinophils Absolute Auto 0.2 X10*3/uL (0.0-0.4); Eosinophils Percent Auto 2.8 % (0-4); Hematocrit 32.1 % (37.0-47.0); Hemoglobin 10.7 g/dl (12.0-16.0); Imm Gran Abs Auto 0.01 X10*3/uL (0.00-0.03); Imm Gran Pct Auto 0.1 % (0.0-0.4); Lymphocytes Absolute Auto 2.8 X10*3/uL (1.2-4.9); Lymphocytes Percent Auto 39.3 % (20-40); Mean Corpuscular HGB Conc 33.3 g/dl (31.0-35.0); Mean Corpuscular Hemoglobin 30.7 pg (27.0-33.0); Mean Corpuscular Volume 92.2 fL (80.0-98.0); Mean Platelet Volume 10.7 fL (9.4-12.3); Monocytes Absolute Auto 0.9 X10*3/uL (0.1-1.2); Monocytes Percent Auto 12.5 % (2-11); Neutrophils Absolute Auto 3.2 x10*3/uL (2.0-8.3); Neutrophils Percent Auto 44.7 % (45-73); Platelet Count 261 X10*3/uL (160-400); Red Blood Count 3.48 X10*6/uL (4.20-5.50); Red Cell Distribution Width 15.1 % (11.0-16.0); White Blood Count 7.1 X10*3/uL (4.8-10.8)
[2024-06-16 11:48] LABS: Alanine Aminotransferase 21 U/L (0-31); Alkaline Phosphatase 76 U/L (39-117); Anion Gap 13 (12-20); Aspartate Amino Transferase 14 U/L (5-31); Bilirubin Direct 0.1 mg/dL (0.0-0.5); Bilirubin Total 0.3 mg/dL (0.0-1.0); Blood Urea Nitrogen 20 mg/dL (9-16); Calcium 9.2 mg/dL (8.4-10.2); Carbon Dioxide 26 mmol/L (22-29); Chloride 107 mmol/L (96-108); Cholesterol 194 mg/dL (<200); Estimated Glomerular Filt Rate > 60; Glucose Random 88 mg/dL (60-115); HDL Cholesterol 44 mg/dL (>40); Iron 48 mcg/dL (30-160); LDL Cholesterol Calculated 106 mg/dL (<100); Percent Iron Saturation 19 % (15-50); Potassium 3.6 mmol/L (3.3-5.1); Sodium 142 mmol/L (135-145); Total Iron Binding Capacity 253 mcg/dL (228-428); Total Protein 6.3 g/dL (6.5-8.0); Triglycerides 223 mg/dL (<150); Unsaturated Iron Binding 205 ug/dL; Uric Acid 5.4 mg/dL (2.4-5.7)
[2024-06-16 12:06] LABS: HBc Num1 0.11 S/CO (0.00-0.79); HBsAGNum1 0.29 S/CO (0.00-0.99); Hepatitis A Antibody IgM 0.11 Index (0-0.79); Hepatitis B Core Antibody Nonreactive (Nonreactive); Hepatitis B Surface Antigen Negative (Negative); ~HepC Num1 0.06 S/CO (0.00-0.79); ~Hepatitis A Antibody IgM Nonreactive (Nonreactive); ~Hepatitis B Surface Antibody REACTIVE (Nonreactive); ~Hepatitis C Antibody Nonreactive (Nonreactive)
[2024-06-16 12:10] LABS: Ferritin 118 ng/mL (10-250); TSH reflex Free T4 1.77 uIU/mL (0.32-4.0); Vitamin D 25-OH Total 58.3 ng/mL (>30)
[2024-06-16 12:19] LABS: Magnesium 1.4 mg/dL (1.6-2.6)
[2024-06-16 12:23] LABS: Folate 14.1 ng/mL (> or = 4.0); Vitamin B12 388 pg/mL (200-900)
[2024-06-16 18:02] LABS: Creatinine Urine 255.13 mg/dL
[2024-06-17 06:44] LABS: Ceruloplasmin 20 mg/dL (14-48)
[2024-06-17 13:04] LABS: Alpha Fetoprotein 2.6 ng/mL
[2024-06-20 14:43] LABS: Anti Nuclear Antibody Screen NEGATIVE (NEGATIVE)
[2024-06-21 06:54] LABS: Mitochondrial Antibodies NEGATIVE (NEGATIVE)
[2024-06-21 13:53] LABS: Smooth Muscle Antibody <20 U (<20)
[2024-06-23 11:58] LABS: HLA B 5701 Negative
== END 2024-06-16 08:10 | disposition home or self-care (01) ==
LOC: HO.HHCL 08:09
PROVIDERS: Referring Provider Student in an Organized Health Care Education/Training Program; Visit Provider Family Medicine
DX: I12.9 Hypertensive chronic kidney disease with stage 1 through stage 4 chronic kidney disease, or unspecified chronic kidney disease (principal); R74.01 Elevation of levels of liver transaminase levels; D50.9 Iron deficiency anemia, unspecified; E55.9 Vitamin D deficiency, unspecified; E83.42 Hypomagnesemia; E83.52 Hypercalcemia; M10.9 Gout, unspecified; Z79.899 Other long term (current) drug therapy; N18.31 Chronic kidney disease, stage 3a
CPT/HCPCS: 36415; 80053; 80061; 80076; 81381; 82043; 82105; 82306; 82390; 82570; 82607; 82728; 82746; 83540; 83735; 83970; 84443; 84550; 85025; 86015; 86038; 86381; 86704; 86706; 86709; 86803; 87340

== ENCOUNTER 2024-06-20 16:17 | Emergency (ER) | payer MEDICAID, SELFPAY ==
[2024-06-20 16:24] VITALS: BP 140/106; PULSE 92; O2SAT 97
--- NOTE | 2024-06-20 17:49 | PC.NURSE ---
pt not in [facility]. was brought by EMS and placed in WC in [facility]. waited for triage nurse. for 1.5 hrs
== END 2024-06-20 18:16 | disposition left against medical advice (07) ==
PROVIDERS: Emergency Provider Emergency Medicine
DX: R51.9 Headache, unspecified (principal); I10 Essential (primary) hypertension; M54.2 Cervicalgia; Z53.21 Procedure and treatment not carried out due to patient leaving prior to being seen by health care provider

== ENCOUNTER 2024-06-20 21:57 | Emergency (ER) | payer MEDICAID, SELFPAY ==
[2024-06-20 23:54] VITALS: BP 145/99; PULSE 97; RESP 18; TEMP 36.9; O2SAT 97; BMI 28.2
== END 2024-06-21 02:58 | disposition left against medical advice (07) ==
LOC: HO.ED 06-21 00:22
PROVIDERS: Emergency Provider Emergency Medicine
DX: R51.9 Headache, unspecified (principal)
CPT/HCPCS: 99281

== ENCOUNTER 2024-06-22 06:51 | Inpatient (IN) | payer MEDICAID, SELFPAY ==
[2024-06-22] VITALS (8 sets, daily range): BP systolic 152–180; BP diastolic 96–108; PULSE 96–102; RESP 14–18; TEMP 36.6–37.1; O2SAT 96–98; BMI 27.9
--- NOTE | ~2024-06-22 | XR_ITS ---
EXAMINATION: XR CHEST CLINICAL INFORMATION: Chest pain, shortness of breath COMPARISON: None available. TECHNIQUE: 2 we'll views of the chest were obtained. Fluoroscopy was utilized. FINDINGS: HEART & VASCULARITY: There are normal cardiac size and pulmonary vascularity. LUNGS: Lungs are clear. No pneumothorax is seen. BONES: Bony skeleton is intact. There are persistent moderate upper thoracic levoscoliosis and lower thoracic dextroscoliosis. XR/XR chest 2V IMPRESSION: 1. Unchanged, no radiographic signs of acute cardiopulmonary process. 2. Interval increase in moderate thoracic scoliosis. Electronically signed by: Shade Montemayor MD 06/22/2024 09:28 AM EDT
--- NOTE | 2024-06-22 07:18 | ECG_ITS ---
Test Reason : chest pain Blood Pressure : / mmHG Vent. Rate : 097 BPM Atrial Rate : 097 BPM P-R Int : 166 ms QRS Dur : 074 ms QT Int : 386 ms P-R-T Axes : 070 010 065 degrees QTc Int : 490 ms Normal sinus rhythm Nonspecific T wave abnormality Prolonged QT Abnormal ECG When compared with ECG of 09-APR-2024 21:27, No significant change was found Referred By: Generic ED Physician Electronically Signed By:DONAVAN LOZANO
[2024-06-22 07:42] LABS: MANUAL DIFF FLAG NO
[2024-06-22 07:46] LABS: Basophils Absolute Auto 0.1 X10*3/uL (0.0-0.2); Basophils Percent Auto 0.8 % (0-2); Eosinophils Absolute Auto 0.1 X10*3/uL (0.0-0.4); Eosinophils Percent Auto 1.6 % (0-4); Hematocrit 31.4 % (37.0-47.0); Hemoglobin 10.3 g/dl (12.0-16.0); Imm Gran Abs Auto 0.03 X10*3/uL (0.00-0.03); Imm Gran Pct Auto 0.4 % (0.0-0.4); Lymphocytes Absolute Auto 1.7 X10*3/uL (1.2-4.9); Lymphocytes Percent Auto 20.6 % (20-40); Mean Corpuscular HGB Conc 32.8 g/dl (31.0-35.0); Mean Corpuscular Hemoglobin 30.2 pg (27.0-33.0); Mean Corpuscular Volume 92.1 fL (80.0-98.0); Mean Platelet Volume 10.1 fL (9.4-12.3); Monocytes Absolute Auto 0.6 X10*3/uL (0.1-1.2); Monocytes Percent Auto 7.6 % (2-11); Neutrophils Absolute Auto 5.8 x10*3/uL (2.0-8.3); Platelet Count 328 X10*3/uL (160-400); Red Blood Count 3.41 X10*6/uL (4.20-5.50); White Blood Count 8.4 X10*3/uL (4.8-10.8)
[2024-06-22 07:56] LABS: Alanine Aminotransferase 14 U/L (0-31); Alkaline Phosphatase 73 U/L (39-117); Anion Gap 13 (12-20); Aspartate Amino Transferase 12 U/L (5-31); Bilirubin Total 0.4 mg/dL (0.0-1.0); Blood Urea Nitrogen 16 mg/dL (9-16); Calcium 9.9 mg/dL (8.4-10.2); Carbon Dioxide 28 mmol/L (22-29); Chloride 105 mmol/L (96-108); Creatinine Clr Calc Pharmacy 89.8; Estimated Glomerular Filt Rate > 60; Glucose Random 110 mg/dL (60-115); Potassium 3.7 mmol/L (3.3-5.1); Sodium 142 mmol/L (135-145); Total Protein 6.9 g/dL (6.5-8.0)
[2024-06-22 08:03] LABS: Troponin-I High Sensitivity 12.3 ng/L (<3.5-17.0)
[2024-06-22 08:21] LABS: Influenza A PCR NEGATIVE (Negative); Influenza B PCR NEGATIVE (Negative); Resp Syncy Virus RNA Qual PCR NEGATIVE (Negative); SARS COV2 PCR INHOUSE NEGATIVE (Negative)
[2024-06-22 08:27] LABS: B Type Natriuretic Peptide 470 pg/mL (<100)
--- NOTE | 2024-06-22 09:01 | ED.CHESTPAIN ---
HPI - Chest Pain General Chief Complaint: Chest Pain Stated Complaint: SoB Time Seen by Provider: 06/22/24 09:00 Source: patient Mode of arrival: ambulatory Limitations: no limitations History of Present Illness ED Provider: Chi Whalen PA-C HPI narrative: 48 yo female with history of alcohol use disorder (last drink 05/04), anemia, breast cancer, gout, hypertension who presents to the ER for evaluation of 2 weeks of worsening chest pain, shortness of breath and headache. She states she was here on Thursday twice, got sent here via EMS from the clinic for possible hypertensive emergency but ended up leaving because the wait was over 7 hours. Patient states for the last 2 weeks she has had chest tightness and chest pressure, worse when lying flat. She has difficulty breathing when she lays flat. She has had a pounding headache for 2 weeks as well. No vision changes. She has been compliant with her home lisinopril and just got restarted on her hydrochlorothiazide. She was recently off of it because she was on a prolonged course of gout for steroids. She reports an 11 lb weight gain while she was on the prednisone. She denies any history of CHF or heart failure. She denies any recent peripheral edema, she has had in the past but it has improved. She reports shortness of breath with exertion, speaking, lying flat. Last night she was unable to breathe when she was trying to sleep with her usual 3 pillows so she decided to come to the ER again this morning. MD complaint: chest pain, chest heaviness and other (Orthopnea, headache) Onset (ago): week(s) (2) Timing of current episode: constant Prior episodes: Yes Pain location: substernal Pain radiation: none Severity: moderate Quality: heaviness Relieving factors: sitting upright Exacerbating factors: exertion and supine Associated symptoms: dyspnea Treatment prior to arrival: none Risk Factors Coronary artery disease risk factors: hypertension Related Data Home Medications ?Medication ?Instructions ?Recorded ?Confirmed folic acid 1 mg tablet 1 tab PO DAILY 09/30/21 05/11/24 omeprazole 20 mg capsule,delayed 1 cap PO DAILY@0630 09/30/21 05/11/24 release thiamine HCl (vitamin B1) 100 mg 1 tab PO DAILY 09/30/21 05/11/24 tablet lisinopril 40 mg tablet 40 mg PO QAM 10/15/21 05/11/24 acetaminophen 500 mg tablet 1 tab PO Q6-8H PRN fever 06/04/22 05/11/24 carvedilol 3.125 mg tablet 1 tab PO BID 06/04/22 05/11/24 chlorthalidone 25 mg tablet 1 tab PO DAILY 06/04/22 05/11/24 cholecalciferol (vitamin D3) 25 1 cap PO QAM 06/04/22 05/11/24 mcg (1,000 unit) capsule (Vitamin D3) docusate sodium 100 mg capsule 1 cap PO BID PRN Constipation 06/04/22 05/11/24 multivitamin-ferrous 1 tab PO DAILY 06/04/22 05/11/24 fumarate-folic acid 18 mg-400 mcg tablet (Certavite-Antioxidant) cetirizine 10 mg tablet 10 mg PO DAILY PRN allergies 04/10/24 05/11/24 diclofenac sodium 1 % topical gel 1 g topical TID PRN pain 04/10/24 05/11/24 sennosides 8.6 mg tablet (Natural 8.6 mg PO BEDTIME constipation 04/10/24 05/11/24 Senna Laxative) Previous Rx's ?Medication ?Instructions ?Recorded ACL defiance brace #1 ea 07/29/21 albuterol sulfate 90 mcg/actuation 2 puff inhalation Q4-6H PRN 09/12/21 aerosol inhaler shortness of breath or wheezing #8.5 grams magnesium oxide 400 mg (241.3 mg 400 mg PO BIDPC 30 days #60 tabs 10/02/21 magnesium) tablet colchicine 0.6 mg capsule 0.6 mg PO Q2H Ankle Pain #3 caps 04/21/24 allopurinol 100 mg tablet 100 mg PO DAILY #60 tabs 05/11/24 colchicine 0.6 mg tablet 0.6 mg PO BID #60 tabs 05/11/24 methylprednisolone 8 mg tablet See Rx Instructions PO .COMPLEX 05/11/24 (Medrol) #39 tabs Allergies Allergy/AdvReac Type Severity Reaction Status Date / Time amoxicillin [AMOXICILLIN] Allergy Intermediate rash, Verified 06/22/24 07:17 rash/itching sulfamethoxazole Allergy Intermediate RASH Verified 06/22/24 07:17 [From BACTRIM] trimethoprim [From BACTRIM] Allergy Intermediate RASH Verified 06/22/24 07:17 hydrocodone [Hydrocodone] Allergy Mild ITCH Verified 06/22/24 07:17 ibuprofen [From Motrin] Allergy Mild UPSET Verified 06/22/24 07:17 STOMACH latex [Latex] Allergy Mild ITCH Verified 06/22/24 07:17 Review of Systems Review of Systems: Yes all other systems are reviewed and are negative FORMERLY [facility] Past Medical History Medical History Depression Anxiety and depression Lower back pain History of COVID-19 Uncontrolled hypertension Panic attack H/O ETOH abuse Anxiety History of low potassium Breast cancer Hypertension Surgical History History of carpal tunnel release Hx of tubal ligation History of breast lump/mass excision H/O: hysterectomy Family History Family History Mother Heart disease Alzheimers disease Social History Social History Household Members: None Housing: Apartment Do you presently have visiting nurse or other home services: No Alcohol intake: current Alcohol intake frequency: 3 or more drinks per day Alcohol type: hard liquor Comment: 1:1 SI Patient Tobacco Use Status: Current someday Tobacco user Tobacco use type: Cigarette Cigarettes Per Day: 2 Second Hand Smoke Exposure: Yes Advance Directives: Yes Advance Directives on File: Yes Advance Directives Date on File: 02/11/22 Do you have a plan to hurt others: No Plan service: No Current occupational status: disabled Physical Exam Vital Signs: Vital Signs: Last Vital Signs Temp 98.3 F 06/22/24 13:40 Pulse 97 06/22/24 13:40 Resp 16 06/22/24 13:40 BP 180/105 H 06/22/24 13:40 Pulse Ox 97 06/22/24 13:40 O2 Del Method Room Air 06/22/24 13:40 BMI result Body Mass Index 27.9 Appearance: Alert. Oriented X3. No acute distress. Head: normocephalic, atraumatic. Eyes: Pupils equal, round and reactive to light. ENT: Pharynx normal. No tonsillar swelling or exudate. Neck: Normal inspection. Neck supple. CVS: Normal heart rate and rhythm. Pulses normal. Respiratory: No respiratory distress. Breath sounds normal. Abdomen: Soft and nontender. +BS x4 Skin: Skin warm and dry. Normal skin color. Normal skin turgor. No rashes. Extremities: No lower extremity edema. No joint swelling. Neuro/psych: Oriented X 3. No motor deficit. No sensory deficit. CN II-XII intact. Normal speech and cognition. Medications Administered Discontinued Medications Generic Name Dose Route Start Last Admin Trade Name Pedroq PRN Reason Stop Dose Admin Furosemide 20 mg 06/22/24 09:22 06/22/24 09:56 Furosemide 20 Mg/2 Ml Vial IVPUSH 06/22/24 09:23 20 mg ONCE ONE Administration Protocol Magnesium Sulfate 2 gm in 50 mls @ 25 mls/hr 06/22/24 09:50 06/22/24 12:05 Magnesium Sulfate/H2o IV 06/22/24 11:49 Infused ONCE ONE Infusion Labetalol HCl 10 mg 06/22/24 12:54 06/22/24 13:42 Labetalol Hcl 100 Mg/20 Ml Vial IVPUSH 06/22/24 12:55 10 mg ONCE ONE Administration Lorazepam 1 mg 06/22/24 12:54 06/22/24 13:42 Lorazepam 2 Mg/Ml Vial IVPUSH 06/22/24 12:55 1 mg ONCE ONE Administration Metoprolol Tartrate 5 mg 06/22/24 09:22 06/22/24 09:57 Metoprolol Tartrate 5 Mg/5 Ml Vial IVPUSH 06/22/24 09:23 5 mg ONCE ONE Administration Protocol Potassium Chloride 20 meq 06/22/24 09:22 06/22/24 09:56 Potassium Chloride Er 20 Meq Tab.Er.Prt PO 06/22/24 09:23 20 meq ONCE ONE Administration Medical Decision Making Medical Decision Making MDM Narrative: 48-year-old female with history of hypertension on lisinopril 40 mg per day and chlorthalidone who presents to the ER for evaluation of symptomatic hypertension. Her blood pressure is 170/111. She complains of chest pain, headache, orthopnea. She took her lisinopril this morning. Will pressure remains elevated. EKG does not show any ST elevations or depressions. She was given IV beta lisa with little improvement in her blood pressure. Another 2nd dose has been ordered. Her troponin is flat. On review of records patient did have an echocardiogram back in 2020 that showed moderate to severe LV dysfunction with an impaired relaxation filling pattern. Her BNP is 400. IV Lasix was given with good effect. Chest x-ray does not show any overt pulmonary edema. Patient trialed lying flat and she could not tolerate due to shortness of breath. IV labetalol ordered for ongoing symptomatic hypertension. Will plan to admit for hypertensive urgency and concern for worsening CHF Differential Diagnosis Differential Diagnoses: The differential diagnosis associated with the presentation includes Hypertensive urgency, hypertensive emergency, malignant hypertension, anxiety, alcohol withdrawal, acute on chronic CHF Admission/Observation Consideration of admission/observation: Escalation of care including admission/observation considered Consult Healthcare Provider Management of the patient was discussed with: Hospitalist Lab Data MDM Lab Attestation statement: I reviewed the patient's lab results. 06/22/24 07:37 06/22/24 07:37 Labs: Lab Results 06/22/24 06/22/24 06/22/24 Range/Units 07:37 09:29 09:54 WBC 8.4 (4.8-10.8) X10*3/uL RBC 3.41 L (4.20-5.50) X10*6/uL Hgb 10.3 L (12.0-16.0) g/dl Hct 31.4 L (37.0-47.0) % MCV 92.1 (80.0-98.0) fL MCH 30.2 (27.0-33.0) pg MCHC 32.8 (31.0-35.0) g/dl RDW 14.0 (11.0-16.0) % Plt Count 328 D (160-400) X10*3/uL MPV 10.1 (9.4-12.3) fL Immature Gran % (Auto) 0.4 (0.0-0.4) % Neut % (Auto) 69.0 (45-73) % Lymph % (Auto) 20.6 (20-40) % [place] % (Auto) 7.6 (2-11) % Eos % (Auto) 1.6 (0-4) % Baso % (Auto) 0.8 (0-2) % Lymph # (Auto) 1.7 (1.2-4.9) X10*3/uL [place] # (Auto) 0.6 (0.1-1.2) X10*3/uL Eos # (Auto) 0.1 (0.0-0.4) X10*3/uL Baso # (Auto) 0.1 (0.0-0.2) X10*3/uL Abs Immat Gran (auto) 0.03 (0.00-0.03) X10*3/uL Absolute Neuts (auto) 5.8 (2.0-8.3) x10*3/uL Absolute Nucleated RBC 0.000 (0.0-0.012) X10*3/uL Nucleated RBC % (auto) 0.0 (0.0-0.2) /100WBC Sodium 142 (135-145) mmol/L Potassium 3.7 (3.3-5.1) mmol/L Chloride 105 (96-108) mmol/L Carbon Dioxide 28 (22-29) mmol/L Anion Gap 13 (12-20) BUN 16 (9-16) mg/dL Creatinine 0.82 (0.5-1.4) mg/dL Estim Creat Clear Calc 89.8 Estimated GFR > 60 Random Glucose 110 (60-115) mg/dL Calcium 9.9 D (8.4-10.2) mg/dL Magnesium 1.4 L* (1.6-2.6) mg/dL Total Bilirubin 0.4 (0.0-1.0) mg/dL AST 12 (5-31) U/L ALT 14 (0-31) U/L Alkaline Phosphatase 73 (39-117) U/L Troponin I High Sens 12.3 (<3.5-17.0) ng/L B-Natriuretic Peptide 470 H (<100) pg/mL Total Protein 6.9 (6.5-8.0) g/dL Albumin 4.0 (3.5-5.0) g/dL Urine Opiates Screen Not Detected (Not Detect) Ur Buprenorphine Scrn Not Detected (Not Detect) ng/mL Ur Oxycodone Screen Not Detected (Not Detect) ng/mL Urine Methadone Screen Not Detected (Not Detect) ng/mL Urine Fentanyl Screen Not Detected (Not Detect) Ur Barbiturates Screen Not Detected (Not Detect) Ur Phencyclidine Scrn Not Detected (Not Detect) Ur Amphetamines Screen Not Detected (Not Detect) U Benzodiazepines Scrn Not Detected (Not Detect) Urine Cocaine Screen Not Detected (Not Detect) U Marijuana (THC) Screen Not Detected (Not Detect) Ethyl Alcohol < 10 mg/dL Influenza Type A (PCR) NEGATIVE (Negative) Influenza Type B (PCR) NEGATIVE (Negative) RSV RNA Qual (PCR) NEGATIVE (Negative) SARS-CoV-2 RNA (RT-PCR) NEGATIVE (Negative) 06/22/24 Range/Units 12:02 WBC (4.8-10.8) X10*3/uL RBC (4.20-5.50) X10*6/uL Hgb (12.0-16.0) g/dl Hct (37.0-47.0) % MCV (80.0-98.0) fL MCH (27.0-33.0) pg MCHC (31.0-35.0) g/dl RDW (11.0-16.0) % Plt Count (160-400) X10*3/uL MPV (9.4-12.3) fL Immature Gran % (Auto) (0.0-0.4) % Neut % (Auto) (45-73) % Lymph % (Auto) (20-40) % [place] % (Auto) (2-11) % Eos % (Auto) (0-4) % Baso % (Auto) (0-2) % Lymph # (Auto) (1.2-4.9) X10*3/uL [place] # (Auto) (0.1-1.2) X10*3/uL Eos # (Auto) (0.0-0.4) X10*3/uL Baso # (Auto) (0.0-0.2) X10*3/uL Abs Immat Gran (auto) (0.00-0.03) X10*3/uL Absolute Neuts (auto) (2.0-8.3) x10*3/uL Absolute Nucleated RBC (0.0-0.012) X10*3/uL Nucleated RBC % (auto) (0.0-0.2) /100WBC Sodium (135-145) mmol/L Potassium (3.3-5.1) mmol/L Chloride (96-108) mmol/L Carbon Dioxide (22-29) mmol/L Anion Gap (12-20) BUN (9-16) mg/dL Creatinine (0.5-1.4) mg/dL Estim Creat Clear Calc Estimated GFR Random Glucose (60-115) mg/dL Calcium (8.4-10.2) mg/dL Magnesium (1.6-2.6) mg/dL Total Bilirubin (0.0-1.0) mg/dL AST (5-31) U/L ALT (0-31) U/L Alkaline Phosphatase (39-117) U/L Troponin I High Sens 12.1 (<3.5-17.0) ng/L B-Natriuretic Peptide (<100) pg/mL Total Protein (6.5-8.0) g/dL Albumin (3.5-5.0) g/dL Urine Opiates Screen (Not Detect) Ur Buprenorphine Scrn (Not Detect) ng/mL Ur Oxycodone Screen (Not Detect) ng/mL Urine Methadone Screen (Not Detect) ng/mL Urine Fentanyl Screen (Not Detect) Ur Barbiturates Screen (Not Detect) Ur Phencyclidine Scrn (Not Detect) Ur Amphetamines Screen (Not Detect) U Benzodiazepines Scrn (Not Detect) Urine Cocaine Screen (Not Detect) U Marijuana (THC) Screen (Not Detect) Ethyl Alcohol mg/dL Influenza Type A (PCR) (Negative) Influenza Type B (PCR) (Negative) RSV RNA Qual (PCR) (Negative) SARS-CoV-2 RNA (RT-PCR) (Negative) Independent Interpretation I performed an independent interpretation of an: EKG and Plain X-Ray Interpretation: EKG with normal sinus rhythm, ventricular rate 97 beats per minute, no ST segment elevation or depression, normal [place] interval, normal QTC no significant change from April Chest x-ray without any pleural effusion or diffuse interstitial markings to suggest overt pulmonary edema Radiology Impression Discussion of test interpretation with radiology: I have reviewed the radiologist's reading. Radiologist Impression: EXAMINATION: XR CHEST CLINICAL INFORMATION: Chest pain, shortness of breath COMPARISON: None available. TECHNIQUE: 2 we'll views of the chest were obtained. Fluoroscopy was utilized. FINDINGS: HEART & VASCULARITY: There are normal cardiac size and pulmonary vascularity. LUNGS: Lungs are clear. No pneumothorax is seen. BONES: Bony skeleton is intact. There are persistent moderate upper thoracic levoscoliosis and lower thoracic dextroscoliosis. XR/XR chest 2V IMPRESSION: 1. Unchanged, no radiographic signs of acute cardiopulmonary process. 2. Interval increase in moderate thoracic scoliosis. External Record Review External record reviewed: Office record, Outpatient record, Prior outpatient labs and Prior outpatient radiology Tests considered The following testing was considered but not selected: CT head considered however headache for 2 weeks, low suspicion for head bleed Prescription Management I considered prescription management with: Pain Medication Chronic Conditions Patient?s care impacted by: Hypertension Critical Care Time Critical Care Time Critical Care Time: Yes Total Critical Care Time: 39 Attestation: I have personally provided critical care time exclusive of time spent on separately billable procedures. Time includes review of lab data, radiology results, discussion with consultants, and monitoring for potential decompensation. Intervention performed as documented. Discharge Plan Discharge Clinical Impression: Hypertensive urgency CHF (congestive heart failure) Qualifiers: Heart failure type: other Qualified Code(s): I50.9 - Heart failure, unspecified Patient Disposition: Admitted As Inpatient Print Language: Prydeinig
--- NOTE | 2024-06-22 09:30 | PC.NURSE ---
a&ox4. sinus tachy on the hospital monitor - HR between 110-115bpm. hypertensive. pt presents to the ED w/ constant nonradiating sternal chest tightness/sob/headache x 2 weeks. pt verbalizes dyspnea w/ exertion as well as orthopnea. labs obtained/sent in triage. urine obtained/sent to lab. pt positioned upright to promote patent airway. no sob/wob noted. respirations even/unlabored. plan of care ongoing. call cavanaugh placed within reach.
[2024-06-22 09:49] LABS: Amphetamine Screen Urine Not Detected (Not Detect); Barbiturates, Urine Not Detected (Not Detect); Benzodiazepines Screen Urine Not Detected (Not Detect); Buprenorphine Scr Not Detected (Not Detect); Cannabinoid Screen Urine Not Detected (Not Detect); Cocaine Screen Urine Not Detected (Not Detect); Fentanyl, urine Not Detected (Not Detect); Methadone Screen, Urine Not Detected (Not Detect); Opiate Screen Urine Not Detected (Not Detect); Oxycodone Screen Urine Not Detected (Not Detect); Phencyclidine Screen Urine Not Detected (Not Detect)
[2024-06-22 09:51] LABS: Magnesium 1.4 mg/dL (1.6-2.6)
[2024-06-22] MEDS: Furosemide 20 MG/2 ML VIAL IVPUSH (09:56)
[2024-06-22] MEDS: Potassium Chloride ER 20 MEQ TAB.ER.PRT PO (09:56)
[2024-06-22] MEDS: Metoprolol Tartrate 5 MG/5 ML VIAL IVPUSH (09:57)
[2024-06-22] MEDS: Magnesium Sulfate/H2O 2 GM/50 ML PIGGYBACK IV (10:05)
--- NOTE | 2024-06-22 10:09 | PC.NURSE ---
20gIV placed in the right hand - labs obtained/sent to lab. medication administered per provider order. plan of care ongoing. call cavanaugh placed within reach.
[2024-06-22 10:34] LABS: Ethanol < 10 mg/dL
[2024-06-22 12:30] LABS: Troponin-I High Sensitivity 12.1 ng/L (<3.5-17.0)
[2024-06-22] MEDS: Labetalol HCL 100 MG/20 ML VIAL 10 MG IVPUSH (13:42)
[2024-06-22] MEDS: LORazepam 2 MG/ML VIAL 1 MG IVPUSH (13:42)
--- NOTE | 2024-06-22 13:46 | PC.NURSE ---
pt remains hypertensive. otherwise vss and up to date. provider notified/aware. pt pending admission - speaking w/ hospitalist at this time. no sob/wob noted. respirations even/unlabored. plan of care ongoing. call cavanaugh placed within reach.
--- NOTE | 2024-06-22 14:01 | PM.IMHP ---
History of Present Illness Date of Service: 06/22/24 Chief Complaint: Chest pain/headaches/orthopnea 48-year-old female past medical history of alcohol use disorder last intake June 04, anemia, breast cancer, essential hypertension, GERD, history of gout recent flare in April, presented to [facility] with several days of chest pain that she described as chest tightness localized to left anterior chest, constant associated with palpitation, worsening last 4-5 days, with shortness of breath, difficulty lying flat, and 11 lb weight gain in last couple months, while on prednisone , associated with global headache, with pressure on temples, neck discomfort, chlorthalidone was stopped couple months ago while she was on prolonged course of prednisone, and was restarted back yesterday, currently taking lisinopril, Coreg and chlorthalidone,Denies weakness numbness, no gait disturbance no vision loss, but since she was not feeling better unable to sleep last night due to orthopnea with the usual 3 pillows, she came to the ED and noted to have sbp 160/104 worsened to 180/105 ,normal troponin, magnesium 1.4, BNP 470, alcohol level less than 10 stable hematocrit no leukocytosis chest x-ray unremarkable EKG showed nsr, nonspecific T-wave abnormality, prolonged QT no change in EKG from recent EKG of 04/21/2024, patient treated in the emergency room with magnesium, IV metoprolol, IV Lopressor and IV Lasix 20 mg and now being admitted for continued symptoms of chest pain palpitation orthopnea and elevated blood pressure. Review of Systems Review of Systems: General no fever chills. CVS chest pain, palpitation. Respiratory shortness of breath, no cough Gastrointestinal no nausea, no vomiting, no abdominal pain no urgency, no frequency [employer] headache, no dizziness, no weakness, no numbness Skin no rash Musculoskeletal no pain All other system are reviewed and negative. [facility] Medical History Depression Anxiety and depression Lower back pain History of COVID-19 Uncontrolled hypertension Panic attack H/O ETOH abuse Anxiety History of low potassium Breast cancer Hypertension Family History Mother Heart disease Alzheimers disease Surgical History History of carpal tunnel release Hx of tubal ligation History of breast lump/mass excision H/O: hysterectomy Social History Household Members: None Housing: Apartment Do you presently have visiting nurse or other home services: No Alcohol intake: current Alcohol intake frequency: a few times a month Alcohol type: hard liquor Comment: 1:1 SI Patient Tobacco Use Status: Never used Tobacco Tobacco use type: Cigarette Cigarette Packs Per Day: 1 Cigarettes Per Day: 20.0 Years Smoked: 38YRS e-Cigarette/Vaping Use: Never Used Second Hand Smoke Exposure: Yes Advance Directives Date on File: 02/11/22 service: No Current occupational status: disabled Meds Allergies Allergy/AdvReac Type Severity Reaction Status Date / Time amoxicillin [AMOXICILLIN] Allergy Intermediate rash, Verified 06/22/24 07:17 rash/itching sulfamethoxazole Allergy Intermediate RASH Verified 06/22/24 07:17 [From BACTRIM] trimethoprim [From BACTRIM] Allergy Intermediate RASH Verified 06/22/24 07:17 hydrocodone [Hydrocodone] Allergy Mild ITCH Verified 06/22/24 07:17 ibuprofen [From Motrin] Allergy Mild UPSET Verified 06/22/24 07:17 STOMACH latex [Latex] Allergy Mild ITCH Verified 06/22/24 07:17 Active Medications: Current Medications Acetaminophen (Acetaminophen 325 Mg Tablet) 650 mg PO Q6H PRN PRN Reason: Pain, Mild (Pain Scale 1-3), fever or headache Calcium Carbonate (Calcium Carbonate 750 Mg Tab.Chew) 750 mg PO Q4H PRN PRN Reason: Heartburn Enoxaparin Sodium (Enoxaparin Sodium 40 Mg/0.4 Ml Syringe) 40 mg SUBCUT Q24H CLAUDIA Furosemide (Furosemide 20 Mg/2 Ml Vial) 20 mg IVPUSH BID@0900,1800 [facility]; Protocol Magnesium Hydroxide (Milk Of Magnesia 30 Ml Oral.Susp) 30 ml PO DAILY PRN PRN Reason: Constipation Melatonin (Melatonin 3 Mg Tablet) 6 mg PO BEDTIME PRN PRN Reason: Insomnia Ondansetron HCl (Ondansetron Hcl 4 Mg/2 Ml Vial) 4 mg IVPUSH Q8H PRN PRN Reason: Nausea and Vomiting Sodium Chloride (0.9 % Sodium Chloride Flush 3 Ml Syringe) 3 ml IVFLUSH QSHIFT [facility] Home Medications ?Medication ?Instructions ?Recorded ?Confirmed ?Last Taken ?Type folic acid 1 mg tablet 1 tab PO DAILY 09/30/21 06/22/24 06/22/24 History omeprazole 20 mg capsule,delayed 1 cap PO DAILY@0630 09/30/21 06/22/24 06/22/24 History release thiamine HCl (vitamin B1) 100 mg 1 tab PO DAILY 09/30/21 06/22/24 06/22/24 History tablet lisinopril 40 mg tablet 40 mg PO DAILY 10/15/21 06/22/24 06/22/24 History acetaminophen 500 mg tablet 1 tab PO Q6H PRN fever 06/04/22 06/22/24 06/22/24 History carvedilol 3.125 mg tablet 1 tab PO BID 06/04/22 06/22/24 06/22/24 History chlorthalidone 25 mg tablet 1 tab PO DAILY 06/04/22 06/22/24 06/22/24 History cholecalciferol (vitamin D3) 25 1 cap PO DAILY 06/04/22 06/22/24 06/22/24 History mcg (1,000 unit) capsule (Vitamin D3) multivitamin-ferrous 1 tab PO DAILY 06/04/22 06/22/24 06/22/24 History fumarate-folic acid 18 mg-400 mcg tablet (Certavite-Antioxidant) cetirizine 10 mg tablet 10 mg PO DAILY PRN allergies 04/10/24 06/22/24 06/22/24 History Physical Exam Vital Signs and Narrative: Vital Signs: Last Vital Signs Temp 98.3 F 06/22/24 13:40 Pulse 97 06/22/24 13:40 Resp 16 06/22/24 13:40 BP 180/105 H 06/22/24 13:40 Pulse Ox 97 06/22/24 13:40 O2 Del Method Room Air 06/22/24 13:40 BMI result Body Mass Index 27.9 Const: Other: General awake alert x3, in no acute distress. Anicteric sclera Neck no JVD. CVS regular rate rhythm, Respiratory lungs clear to auscultation, no respiratory distress, no wheeze, no rhonchi. Gastrointestinal abdomen soft, non tender, bowel sounds audible, no guarding , no rigidity. Extremities no edema. Neuro non focal. No tremors Skin no rash Psych appropriate affect Results Labs 06/22/24 07:37 06/22/24 07:37 Labs: Laboratory Results - last 24 hr 06/22/24 06/22/24 06/22/24 07:37 09:29 09:54 MCV 92.1 MCH 30.2 MCHC 32.8 RDW 14.0 Plt Count 328 D MPV 10.1 Immature Gran % (Auto) 0.4 Neut % (Auto) 69.0 Lymph % (Auto) 20.6 [place] % (Auto) 7.6 Eos % (Auto) 1.6 Baso % (Auto) 0.8 Lymph # (Auto) 1.7 [place] # (Auto) 0.6 Eos # (Auto) 0.1 Baso # (Auto) 0.1 Abs Immat Gran (auto) 0.03 Absolute Neuts (auto) 5.8 Absolute Nucleated RBC 0.000 Nucleated RBC % (auto) 0.0 Anion Gap 13 Estim Creat Clear Calc 89.8 Estimated GFR > 60 Random Glucose 110 Calcium 9.9 D Magnesium 1.4 L* Total Bilirubin 0.4 AST 12 ALT 14 Alkaline Phosphatase 73 Troponin I High Sens 12.3 B-Natriuretic Peptide 470 H Total Protein 6.9 Albumin 4.0 Urine Opiates Screen Not Detected Ur Buprenorphine Scrn Not Detected Ur Oxycodone Screen Not Detected Urine Methadone Screen Not Detected Urine Fentanyl Screen Not Detected Ur Barbiturates Screen Not Detected Ur Phencyclidine Scrn Not Detected Ur Amphetamines Screen Not Detected U Benzodiazepines Scrn Not Detected Urine Cocaine Screen Not Detected U Marijuana (THC) Screen Not Detected Ethyl Alcohol < 10 Influenza Type A (PCR) NEGATIVE Influenza Type B (PCR) NEGATIVE RSV RNA Qual (PCR) NEGATIVE SARS-CoV-2 RNA (RT-PCR) NEGATIVE 06/22/24 12:02 MCV MCH MCHC RDW Plt Count MPV Immature Gran % (Auto) Neut % (Auto) Lymph % (Auto) [place] % (Auto) Eos % (Auto) Baso % (Auto) Lymph # (Auto) [place] # (Auto) Eos # (Auto) Baso # (Auto) Abs Immat Gran (auto) Absolute Neuts (auto) Absolute Nucleated RBC Nucleated RBC % (auto) Anion Gap Estim Creat Clear Calc Estimated GFR Random Glucose Calcium Magnesium Total Bilirubin AST ALT Alkaline Phosphatase Troponin I High Sens 12.1 B-Natriuretic Peptide Total Protein Albumin Urine Opiates Screen Ur Buprenorphine Scrn Ur Oxycodone Screen Urine Methadone Screen Urine Fentanyl Screen Ur Barbiturates Screen Ur Phencyclidine Scrn Ur Amphetamines Screen U Benzodiazepines Scrn Urine Cocaine Screen U Marijuana (THC) Screen Ethyl Alcohol Influenza Type A (PCR) Influenza Type B (PCR) RSV RNA Qual (PCR) SARS-CoV-2 RNA (RT-PCR) Imaging Radiologist's Impressions: Impressions Chest X-Ray 06/22/24 07:19 IMPRESSION: 1. Unchanged, no radiographic signs of acute cardiopulmonary process. 2. Interval increase in moderate thoracic scoliosis. Electronically signed by: Shade Montemayor MD 06/22/2024 09:28 AM EDT RP Assessment and Plan (1) Hypertensive urgency: Status: Acute (2) CHF (congestive heart failure): Qualifiers: Heart failure type: other Qualified Code(s): I50.9 - Heart failure, unspecified Status: Acute Plan 47-year-old female with history of alcohol use disorder, essential hypertension, GERD, anemia, breast cancer, gout presented to [facility] with 2 weeks of chest pain, headache, shortness of breath with exertion and orthopnea with 11 lb weight gain in last couple months while on prednisone patient noted to have hypertensive urgency elevated BNP and being admitted to [facility] with hypertensive urgency and possible diastolic dysfunction due to uncontrolled high blood pressure. Acute congestive heart failure due to reduce EF Elevated BNP Chest x-ray unremarkable, no leg edema, no JVD obtain echocardiogram give IV Lasix follow electrolytes and BNP daily wt ,i/os Cardiology consult Hypertensive urgency Admit to telemetry ,continue Coreg, lisinopril follow BP and adjust medication Chest pain EKG showed no ischemia, normal troponin x2, will obtain echocardiogram Follow lipid profile Cardio consult Acute hypo magnesemia will replete and follow labs likely due to poor nutrition/etoh use Alcohol use disorder denies heavy alcohol use, strongly encouraged to abstain from alcohol, no withdrawal symptoms. Normocytic anemia stable H and H History of gout no acute flare Lovenox Full code In my clinical judgment patient need two night inpatient hospitalization for monitoring and treatment of hypertensive urgency associated with chest pain and palpitation requiring intravenous diuretics/expert consultation and further workup. Quality Stroke Does the patient have a stroke diagnosis?: No VTE Prior VTE?: No VTE Risk Level:: Medical - moderate - high VTE Device Contraindication: Treatment Not Indicated VTE Drug Contraindication: N/A - Med Ordered
[2024-06-22] MEDS: Enoxaparin Sodium 40 MG/0.4 ML SYRINGE SUBCUT (14:34)
--- NOTE | 2024-06-22 14:35 | PHA.MEDREC ---
Addendum entered by Maria Luisa Peres [facility] 06/22/24 15:02: reviewed Original Note: Pharmacy Consult ? Medication Reconciliation Pharmacy has completed the medication reconciliation. Spoke to patient at bedside, she said she no longer takes the allopurinol, clonidine, colchicine, or methylprednisolone.
--- NOTE | 2024-06-22 16:48 | PM.CNCAR ---
History of Present Illness History of Present Illness Date of Service: 06/22/24 Requesting physician: Hernan Lee Chief complaint: Hypertensive urgency Narrative: 48-year-old female with alcoholism and previous history of cardiomyopathy and hypertension presenting with shortness of breath and significantly elevated blood pressures. She has not been following with Cardiology apparently saw someone a while ago. Continues to drink whiskey. Blood pressure is quite elevated on admission and she was short of breath due to congestive heart failure. Still quite volume overloaded. She is complaining of some chest tightness but saying that this is getting better. Does not watch salt in her diet. Drinks whiskey and hard liquor gently. No other reported drug abuse. Not aware of any heart history although echo here has shown moderate severe LV dysfunction in the past. [facility], [facility] Past Medical History Medical History Depression Anxiety and depression Lower back pain History of COVID-19 Uncontrolled hypertension Panic attack H/O ETOH abuse Anxiety History of low potassium Breast cancer Hypertension Family History Family History Mother Heart disease Alzheimers disease Surgical History Surgical History History of carpal tunnel release Hx of tubal ligation History of breast lump/mass excision H/O: hysterectomy Social History Social History Household Members: None Housing: Apartment Do you presently have visiting nurse or other home services: No Alcohol intake: current Alcohol intake frequency: 3 or more drinks per day Alcohol type: hard liquor Comment: 1:1 SI Patient Tobacco Use Status: Current someday Tobacco user Tobacco use type: Cigarette Cigarettes Per Day: 2 Second Hand Smoke Exposure: Yes Advance Directives: Yes Advance Directives on File: Yes Advance Directives Date on File: 02/11/22 Do you have a plan to hurt others: No Plan service: No Current occupational status: disabled Meds Allergies Allergy/AdvReac Type Severity Reaction Status Date / Time amoxicillin [AMOXICILLIN] Allergy Intermediate rash, Verified 06/22/24 07:17 rash/itching sulfamethoxazole Allergy Intermediate RASH Verified 06/22/24 07:17 [From BACTRIM] trimethoprim [From BACTRIM] Allergy Intermediate RASH Verified 06/22/24 07:17 hydrocodone [Hydrocodone] Allergy Mild ITCH Verified 06/22/24 07:17 ibuprofen [From Motrin] Allergy Mild UPSET Verified 06/22/24 07:17 STOMACH latex [Latex] Allergy Mild ITCH Verified 06/22/24 07:17 Active Medications: Current Medications Acetaminophen (Acetaminophen 325 Mg Tablet) 650 mg PO Q6H PRN PRN Reason: Pain, Mild (Pain Scale 1-3), fever or headache Calcium Carbonate (Calcium Carbonate 750 Mg Tab.Chew) 750 mg PO Q4H PRN PRN Reason: Heartburn Enoxaparin Sodium (Enoxaparin Sodium 40 Mg/0.4 Ml Syringe) 40 mg SUBCUT Q24H [facility] Last Admin: 06/22/24 14:34 Dose: 40 mg Furosemide (Furosemide 20 Mg/2 Ml Vial) 40 mg IVPUSH BID@0900,1800 [facility]; Protocol Losartan Potassium (Losartan Potassium 25 Mg Tablet) 25 mg PO DAILY [facility]; Protocol Magnesium Hydroxide (Milk Of Magnesia 30 Ml Oral.Susp) 30 ml PO DAILY PRN PRN Reason: Constipation Melatonin (Melatonin 3 Mg Tablet) 6 mg PO BEDTIME PRN PRN Reason: Insomnia Ondansetron HCl (Ondansetron Hcl 4 Mg/2 Ml Vial) 4 mg IVPUSH Q8H PRN PRN Reason: Nausea and Vomiting Sodium Chloride (0.9 % Sodium Chloride Flush 3 Ml Syringe) 3 ml IVFLUSH QSHIFT [facility] Last Admin: 06/22/24 16:35 Dose: Not Given Spironolactone (Spironolactone 25 Mg Tablet) 25 mg PO DAILY [facility]; Protocol Home Medications ?Medication ?Instructions ?Recorded ?Confirmed ?Last Taken ?Type folic acid 1 mg tablet 1 tab PO DAILY 09/30/21 06/22/24 06/22/24 History omeprazole 20 mg capsule,delayed 1 cap PO DAILY@0630 09/30/21 06/22/24 06/22/24 History release thiamine HCl (vitamin B1) 100 mg 1 tab PO DAILY 09/30/21 06/22/24 06/22/24 History tablet lisinopril 40 mg tablet 40 mg PO DAILY 10/15/21 06/22/24 06/22/24 History acetaminophen 500 mg tablet 1 tab PO Q6H PRN fever 06/04/22 06/22/24 06/22/24 History carvedilol 3.125 mg tablet 1 tab PO BID 06/04/22 06/22/24 06/22/24 History chlorthalidone 25 mg tablet 1 tab PO DAILY 06/04/22 06/22/24 06/22/24 History cholecalciferol (vitamin D3) 25 1 cap PO DAILY 06/04/22 06/22/24 06/22/24 History mcg (1,000 unit) capsule (Vitamin D3) multivitamin-ferrous 1 tab PO DAILY 06/04/22 06/22/24 06/22/24 History fumarate-folic acid 18 mg-400 mcg tablet (Certavite-Antioxidant) cetirizine 10 mg tablet 10 mg PO DAILY PRN allergies 04/10/24 06/22/24 06/22/24 History Physical Exam Vital Signs: Vital Signs: Last Vital Signs Temp 98.2 F 06/22/24 14:31 Pulse 96 06/22/24 14:31 Resp 16 06/22/24 14:31 BP 152/98 H 06/22/24 14:31 Pulse Ox 97 06/22/24 14:31 O2 Del Method Room Air 06/22/24 14:31 BMI result Body Mass Index 27.9 GENERAL APPEARANCE: in no acute distress, pleasant. NECK: no carotid bruit, + jugular venous distention. SKIN: no suspicious lesions, warm and dry. HEART: no murmurs, regular rate and rhythm. LUNGS: clear to auscultation bilaterally. ABDOMEN: soft, nontender. EXTREMITIES: no edema. PERIPHERAL PULSES: equal. NEUROLOGIC: No gross deficits, AAO X 3 Objective Labs and Meds 06/22/24 07:37 06/22/24 07:37 Lab results: Laboratory Results - last 24 hr 06/22/24 06/22/24 06/22/24 07:37 09:29 09:54 WBC 8.4 RBC 3.41 L Hgb 10.3 L Hct 31.4 L MCV 92.1 MCH 30.2 MCHC 32.8 RDW 14.0 Plt Count 328 D MPV 10.1 Immature Gran % (Auto) 0.4 Neut % (Auto) 69.0 Lymph % (Auto) 20.6 [place] % (Auto) 7.6 Eos % (Auto) 1.6 Baso % (Auto) 0.8 Lymph # (Auto) 1.7 [place] # (Auto) 0.6 Eos # (Auto) 0.1 Baso # (Auto) 0.1 Abs Immat Gran (auto) 0.03 Absolute Neuts (auto) 5.8 Absolute Nucleated RBC 0.000 Nucleated RBC % (auto) 0.0 Sodium 142 Potassium 3.7 Chloride 105 Carbon Dioxide 28 Anion Gap 13 BUN 16 Creatinine 0.82 Estim Creat Clear Calc 89.8 Estimated GFR > 60 Random Glucose 110 Calcium 9.9 D Magnesium 1.4 L* Total Bilirubin 0.4 AST 12 ALT 14 Alkaline Phosphatase 73 Troponin I High Sens 12.3 B-Natriuretic Peptide 470 H Total Protein 6.9 Albumin 4.0 Urine Opiates Screen Not Detected Ur Buprenorphine Scrn Not Detected Ur Oxycodone Screen Not Detected Urine Methadone Screen Not Detected Urine Fentanyl Screen Not Detected Ur Barbiturates Screen Not Detected Ur Phencyclidine Scrn Not Detected Ur Amphetamines Screen Not Detected U Benzodiazepines Scrn Not Detected Urine Cocaine Screen Not Detected U Marijuana (THC) Screen Not Detected Ethyl Alcohol < 10 Influenza Type A (PCR) NEGATIVE Influenza Type B (PCR) NEGATIVE RSV RNA Qual (PCR) NEGATIVE SARS-CoV-2 RNA (RT-PCR) NEGATIVE 06/22/24 12:02 WBC RBC Hgb Hct MCV MCH MCHC RDW Plt Count MPV Immature Gran % (Auto) Neut % (Auto) Lymph % (Auto) [place] % (Auto) Eos % (Auto) Baso % (Auto) Lymph # (Auto) [place] # (Auto) Eos # (Auto) Baso # (Auto) Abs Immat Gran (auto) Absolute Neuts (auto) Absolute Nucleated RBC Nucleated RBC % (auto) Sodium Potassium Chloride Carbon Dioxide Anion Gap BUN Creatinine Estim Creat Clear Calc Estimated GFR Random Glucose Calcium Magnesium Total Bilirubin AST ALT Alkaline Phosphatase Troponin I High Sens 12.1 B-Natriuretic Peptide Total Protein Albumin Urine Opiates Screen Ur Buprenorphine Scrn Ur Oxycodone Screen Urine Methadone Screen Urine Fentanyl Screen Ur Barbiturates Screen Ur Phencyclidine Scrn Ur Amphetamines Screen U Benzodiazepines Scrn Urine Cocaine Screen U Marijuana (THC) Screen Ethyl Alcohol Influenza Type A (PCR) Influenza Type B (PCR) RSV RNA Qual (PCR) SARS-CoV-2 RNA (RT-PCR) Imaging Radiologist's impression: Impressions Chest X-Ray 06/22/24 07:19 IMPRESSION: 1. Unchanged, no radiographic signs of acute cardiopulmonary process. 2. Interval increase in moderate thoracic scoliosis. Electronically signed by: Shade Montemayor MD 06/22/2024 09:28 AM EDT RP Assessment and Plan (1) CHF (congestive heart failure): Qualifiers: Heart failure type: other Qualified Code(s): I50.9 - Heart failure, unspecified Status: Acute Plan [age] year female with alcoholism and elevated blood pressure presenting with congestive heart failure. She has previous history of cardiomyopathy. Echo to check ejection fraction. Lasix 40 mg IV b.i.d.. Spironolactone 25 mg daily and losartan 25 mg daily. After diuresis we will put back on carvedilol 6.25 mg twice a day. Currently you can hold this. Complete abstinence from alcohol which I discussed with the patient. Salt restriction. Thank you for allowing me to participate in the care of your patient. Please feel free to contact me if you have any questions. Procedures Date of Service Date of Service: 06/22/24
[2024-06-22] MEDS: Furosemide 20 MG/2 ML VIAL 40 MG IVPUSH (17:55)
[2024-06-22] MEDS: Losartan Potassium 25 MG TABLET PO ×2 (17:55→21:10)
[2024-06-22] MEDS: Spironolactone 25 MG TABLET PO (17:55)
--- NOTE | 2024-06-22 19:10 | PC.NURSE ---
assumed care of pt at 1900 - report received from nicole HARRELL.
[2024-06-22] MEDS: carvediloL 6.25 MG TABLET PO (21:10)
[2024-06-22] MEDS: Acetaminophen 325 MG TABLET 650 MG PO (21:12)
[2024-06-23] VITALS (14 sets, daily range): BP systolic 118–166; BP diastolic 84–99; PULSE 90–101; RESP 18–20; TEMP 35.9–36.7; O2SAT 95–98; BMI 27.6
[2024-06-23] MEDS: 0.9 % Sodium Chloride Flush 3 ML SYRINGE IVFLUSH ×3 (01:29→16:57)
--- NOTE | 2024-06-23 07:00 | CA_ITS ---
Transthoracic Echocardiogram Patient (Last, First, Middle): Azra Cast, Gender: Female Date of : 1975 Age: 48 Procedure Date: 06/23/2024 Procedure Type: Transthoracic Echocardiogram Location: [facility] [place] [facility] Height: 170.18 cm Weight: 80.74 kg BSA: 1.92 m2 Heart Rate: bpm BP: 152 / 97 mmHg [place] Baler: SB Referring MD: Hernan Lee MD Symptoms: sob Study Quality: Adequate Conclusions: - Normal left ventricular size and systolic function. There is mildly increased left ventricular wall thickness. The visually estimated ejection fraction is between 55-60%. - Diastolic function is indeterminate on the basis of available data. - Normal right ventricular cavity size and systolic function. - There is mild dilatation of the ascending aorta measuring 3.70 cm. - There is a small loculated pericardial effusion overlying the left ventricle. There are no definitive echocardiographic findings of tamponade physiology. Findings Left Ventricle Normal left ventricular size and systolic function. There is mildly increased left ventricular wall thickness. The visually estimated ejection fraction is between 55-60%. There is no evidence of regional wall motion abnormalities. Diastolic function is indeterminate on the basis of available data. Right Ventricle Normal right ventricular cavity size and systolic function. Atria The left atrium is normal in size. The right atrium is normal in size. Aortic Valve Normal aortic valve structure and function. There is no aortic valve stenosis. There is no aortic valve regurgitation. Mitral Valve The mitral valve appears normal. There is no mitral valve regurgitation. There is no mitral valve stenosis. Pulmonic Valve The pulmonic valve is normal. There is trace pulmonic valve regurgitation. Tricuspid Valve Normal tricuspid valve structure. There is trace tricuspid valve regurgitation. Tricuspid regurgitation envelope is inadequate for calculation of right ventricular systolic pressure. Moderately elevated right atrial pressure. Great Vessels There is mild dilatation of the ascending aorta measuring 3.70 cm. The visualized portions of the pulmonary artery and branches are normal. Venous The inferior vena cava is normal in size and collapses less than 50% with inspiration. Pericardium/Pleural There is a small loculated pericardial effusion overlying the left ventricle. There are no definitive echocardiographic findings of tamponade physiology. Prior Study Comparison Changes noted compared to prior study dated: 10/18/2021. EF improved. small pericardial effusion along lateral wall of ventricle. Measurements 2D Linear Measurements IVSd: 1.35 0.6-0.9/0.6-1.0 cm LVIDd: 4.34 3.9-5.3/4.2-5.9 cm LVIDd Index: 2.26 2.4-3.2/2.2-3.1 cm/m2 LVIDs: 2.98 2.0-3.6 cm LVPWd: 0.66 0.7-1.1 cm LA Diam: 4.00 2.7-3.8/3.0-4.0 cm LAIDs Index: 2.08 1.5-2.3 cm/m2 LV Mass: 181.53 67-162/88-224 g LV Mass Index: 94.54 43-95/49-115 g/m2 LVOT Diam: 2.20 3.0+(-)1.3 cm 2D Systolic Function EF 4C: 62.70 >55% EF 2C: 41.00 >55% EF BiP: 54.30 >55% Mitral Valve MV Pk E: 0.80 MV PK A: 0.80 MV Decel Time: 189.00 E/A: 1.00 E'Lateral: 9.25 E/E' Lat: 8.70 PHT: 55.00 MVA PHT: 4.00 Decel Miner: 4.25 Aortic Valve AoV Pk Prashant: 1.20 AoV Pk Grad: 6.00 LVOT LVOT Pk Prashant: 0.88 LVOT Mn Prashant: 0.63 LVOT VTI: 0.16 LVOT Pk Grad: 3.00 LVOT Mn Grad: 2.00 LVOT Diam: 2.20 LVOT Area: 3.80 Diastolic Function MV Pk E: 0.80 MV Pk A: 0.80 E/A: 1.00 E' Laterial: 9.25 E/E' Lat: 8.70 Right Ventricle TAPSE (mm): 21.70 TVS' Prashant: 14.90 Tricuspid Valve RA Press: 8.00 Great Vessels Aorta Sinus of Valsalva: 2.90 2.0-3.5 cm Ao Asc: 3.70 2.1-3.4 cm Pulmonary Veins Pulm Vein S/D 1.60 Pulmonary Valve PV Pk Prashant: 0.96 Peak PV Grad: 4.00 Updated in Other Vendor System with Status of Final Jameson Jeffries MD electronically signed on 06/23/2024 5:39:38 PM with status of Final
[2024-06-23] MEDS: Acetaminophen 325 MG TABLET 650 MG PO (08:12)
[2024-06-23] MEDS: carvediloL 6.25 MG TABLET PO ×2 (08:12→22:50)
[2024-06-23] MEDS: Spironolactone 25 MG TABLET PO (08:12)
[2024-06-23] MEDS: Losartan Potassium 25 MG TABLET PO ×2 (08:12→22:51)
[2024-06-23] MEDS: Furosemide 20 MG/2 ML VIAL 40 MG IVPUSH ×2 (08:13→16:57)
--- NOTE | 2024-06-23 09:53 | MHC.CM.PN ---
CM MET WITH PT AT BEDSIDE. PT LIVES WITH FAMILY. PT HAS 11.45/HRS/WK [employer]. INDEPENDENT WITH MOBILITY. +HCP ON FILE. PCP DR. BELLA DAUGHERTY DP: HOME WITH RESUMPTION OF [employer]. PT MAY NEED ASSIST WITH A RIDE HOME. CM WILL CONTINUE TO FOLLOW FOR ANY CHANGE TO DC PLAN/NEEDS.
--- NOTE | 2024-06-23 11:02 | HO.PM.IMPN ---
Subjective Subjective Date of Service: 06/23/24 Interval History: Being followed for acute CHF Complaining of persistent mild chest pressure and shortness of breath, significantly improved from yesterday, complaining of headache not relieved with Tylenol, denies dizziness denies withdrawal symptoms, no nausea, no vomiting tolerating diet . Review of Systems All other system reviewed and are negative. Physical Exam Vital Signs: Vital Signs: Last Vital Signs Temp 98.0 F 06/23/24 07:49 Pulse 100 06/23/24 08:12 Resp 18 06/23/24 07:49 BP 133/95 H 06/23/24 08:13 Pulse Ox 98 06/23/24 07:49 O2 Del Method Room Air 06/23/24 07:49 BMI result Body Mass Index 27.6 Const: Other: General awake alert x3, in no acute distress. Anicteric sclera Neck no JVD. CVS regular rate rhythm, Respiratory lungs clear to auscultation, no respiratory distress, no wheeze, no rhonchi. Gastrointestinal abdomen soft, non tender, bowel sounds audible, no guarding , no rigidity. Extremities no edema. Neuro non focal. No tremors Skin no rash Psych appropriate affect Objective Data Active Medications Acetaminophen (Acetaminophen 325 Mg Tablet) 650 mg PO Q6H PRN PRN Reason: Pain, Mild (Pain Scale 1-3), fever or headache Last Admin: 06/23/24 08:12 Dose: 650 mg Documented By: SALOME Calcium Carbonate (Calcium Carbonate 750 Mg Tab.Chew) 750 mg PO Q4H PRN PRN Reason: Heartburn Carvedilol (Carvedilol 6.25 Mg Tablet) 6.25 mg PO BID [facility]; Protocol Last Admin: 06/23/24 08:12 Dose: 6.25 mg Documented By: SALOME Enoxaparin Sodium (Enoxaparin Sodium 40 Mg/0.4 Ml Syringe) 40 mg SUBCUT Q24H [facility] Last Admin: 06/22/24 14:34 Dose: 40 mg Documented By: DOTTY Furosemide (Furosemide 20 Mg/2 Ml Vial) 40 mg IVPUSH BID@0900,1800 [facility]; Protocol Last Admin: 06/23/24 08:13 Dose: 40 mg Documented By: SALOME Losartan Potassium (Losartan Potassium 25 Mg Tablet) 25 mg PO BID [facility]; Protocol Last Admin: 06/23/24 08:12 Dose: 25 mg Documented By: SALOME Magnesium Hydroxide (Milk Of Magnesia 30 Ml Oral.Susp) 30 ml PO DAILY PRN PRN Reason: Constipation Melatonin (Melatonin 3 Mg Tablet) 6 mg PO BEDTIME PRN PRN Reason: Insomnia Ondansetron HCl (Ondansetron Hcl 4 Mg/2 Ml Vial) 4 mg IVPUSH Q8H PRN PRN Reason: Nausea and Vomiting Sodium Chloride (0.9 % Sodium Chloride Flush 3 Ml Syringe) 3 ml IVFLUSH QSHIFT [facility] Last Admin: 06/23/24 08:13 Dose: 3 ml Documented By: SALOME Spironolactone (Spironolactone 25 Mg Tablet) 25 mg PO DAILY [facility]; Protocol Last Admin: 06/23/24 08:12 Dose: 25 mg Documented By: SALOME Labs 06/22/24 07:37 06/22/24 07:37 Labs: Laboratory Results - last 24 hr 06/22/24 12:02 Troponin I High Sens 12.1 Assessment and Plan (1) CHF (congestive heart failure): Status: Acute (2) Hypertensive urgency: Status: Acute Plan 47-year-old female with history of alcohol use disorder, essential hypertension, GERD, anemia, breast cancer, gout presented to [facility] with 2 weeks of chest pain, headache, shortness of breath with exertion and orthopnea with 11 lb weight gain in last couple months while on prednisone patient noted to have hypertensive urgency elevated BNP and being admitted to [facility] with hypertensive urgency and possible diastolic dysfunction due to uncontrolled high blood pressure. Acute congestive heart failure due to reduce EF Feeling better , less shortness of breath and chest pain Chest x-ray unremarkable, no leg edema, no JVD, Follow echocardiogram , continue IV Lasix follow electrolytes and BNP daily wt ,i/os Being followed by Cardiology they agree with above treatment Hypertensive urgency BP improved continue Coreg, losartan, Aldactone, follow BP and adjust medications Home medication lisinopril, chlorthalidone held Chest pain EKG showed no ischemia, normal troponin x2, follow echocardiogram, outpatient cardiology workup Acute hypo magnesemia will replete and follow labs likely due to poor nutrition/etoh use, continue po magnesium supplement Alcohol use disorder denies heavy alcohol use, strongly encouraged to abstain from alcohol, no withdrawal symptoms, continue thiamine and folic acid. Normocytic anemia stable H and H History of gout no acute flare Lovenox Full code In my clinical judgment patient need continued inpatient hospitalization for monitoring and treatment of hypertensive urgency associated with acute congestive heart failure requiring IV diuretics and close cardiology follow-up. Quality Stroke Does the patient have a stroke diagnosis?: No VTE Prior VTE?: No VTE Risk Level:: Medical - moderate - high VTE Device Contraindication: Treatment Not Indicated VTE Drug Contraindication: N/A - Med Ordered
[2024-06-23] MEDS: Butalb/Acetamin/Caff 50/325/40 TABLET 1 TAB PO ×2 (11:48→22:48)
[2024-06-23 11:51] LABS: Anion Gap 15 (12-20); Blood Urea Nitrogen 23 mg/dL (9-16); Calcium 10.7 mg/dL (8.4-10.2); Carbon Dioxide 33 mmol/L (22-29); Chloride 100 mmol/L (96-108); Creatinine Clr Calc Pharmacy 86.2; Estimated Glomerular Filt Rate > 60; Glucose Random 99 mg/dL (60-115); Magnesium 1.6 mg/dL (1.6-2.6); Potassium 3.6 mmol/L (3.3-5.1); Sodium 144 mmol/L (135-145)
[2024-06-23 11:57] LABS: B Type Natriuretic Peptide 105 pg/mL (<100)
[2024-06-23] MEDS: Enoxaparin Sodium 40 MG/0.4 ML SYRINGE SUBCUT (13:37)
--- NOTE | 2024-06-23 15:05 | PM.PNCARD ---
Subjective Subjective Date of Service: 06/23/24 Interval history: Seen examined at bedside. Feeling better. Still volume overloaded. Physical Exam Vital Signs: Last Vital Signs Temp 96.8 F 06/23/24 12:00 Pulse 99 06/23/24 12:00 Resp 20 06/23/24 12:00 BP 141/88 H 06/23/24 12:00 Pulse Ox 95 06/23/24 12:00 O2 Del Method Room Air 06/23/24 12:00 BMI result Body Mass Index 27.6 GENERAL APPEARANCE: in no acute distress, pleasant. NECK: no carotid bruit, + jugular venous distention. SKIN: no suspicious lesions, warm and dry. HEART: no murmurs, regular rate and rhythm. LUNGS: clear to auscultation bilaterally. ABDOMEN: soft, nontender. EXTREMITIES: no edema. PERIPHERAL PULSES: equal. NEUROLOGIC: No gross deficits, AAO X 3 Objective Labs and Meds 06/22/24 07:37 06/23/24 11:21 Lab results: Laboratory Results - last 24 hr 06/23/24 11:21 Sodium 144 Potassium 3.6 Chloride 100 Carbon Dioxide 33 H Anion Gap 15 BUN 23 H Creatinine 0.85 Estim Creat Clear Calc 86.2 Estimated GFR > 60 Random Glucose 99 Calcium 10.7 H D Magnesium 1.6 B-Natriuretic Peptide 105 H Progress Note: A&P Assessment and plan (1) CHF (congestive heart failure): Status: Acute (2) Hypertensive urgency: Status: Acute Plan Pleasant 48 year female presenting with elevated blood pressures in congestive heart failure. She has background of alcoholism. Diuresing and clinically improving. Blood pressure is also improving. I will review echocardiography. Continue same medications for now. Congested and volume overloaded and should stay on IV diuretics today. Thank you for allowing me to participate in the care of your patient. Please feel free to contact me if you have any questions. Time Spent With Patient Time: Total time managing care of this patient today ____ minutes. Progress Note: Quality Stroke Does the patient have a stroke diagnosis?: No Procedures Date of Service Date of Service: 06/23/24
[2024-06-23] MEDS: Magnesium Oxide 400 MG TABLET PO (16:55)
[2024-06-23] MEDS: Milk of Magnesia 30 ML ORAL.SUSP PO (22:48)
[2024-06-24] VITALS: O2SAT 96
[2024-06-24] MEDS: 0.9 % Sodium Chloride Flush 3 ML SYRINGE IVFLUSH (00:05)
[2024-06-24 04:00] VITALS: BP 122/85; PULSE 93; RESP 20; TEMP 36.4; O2SAT 97
[2024-06-24] MEDS: Omeprazole 20 MG CAPSULE.DR PO (06:01)
[2024-06-24 07:11] LABS: Anion Gap 17 (12-20); Blood Urea Nitrogen 31 mg/dL (9-16); Calcium 10.1 mg/dL (8.4-10.2); Carbon Dioxide 28 mmol/L (22-29); Chloride 99 mmol/L (96-108); Cholesterol 177 mg/dL (<200); Creatinine Clr Calc Pharmacy 84.2; Estimated Glomerular Filt Rate > 60; Glucose Random 116 mg/dL (60-115); HDL Cholesterol 30 mg/dL (>40); LDL Cholesterol Calculated 69 mg/dL (<100); Potassium 3.7 mmol/L (3.3-5.1); Sodium 140 mmol/L (135-145); Triglycerides 391 mg/dL (<150)
[2024-06-24 08:00] VITALS: BP 137/86; PULSE 103; RESP 20; TEMP 37.1; O2SAT 95
[2024-06-24 08:38] VITALS: BP 126/84; PULSE 106
[2024-06-24] MEDS: carvediloL 6.25 MG TABLET PO (08:38)
[2024-06-24] MEDS: Folic Acid 1 MG TABLET PO (08:42)
[2024-06-24] MEDS: Thiamine HCL 100 MG TABLET PO (08:42)
[2024-06-24 08:43] VITALS: BP 126/84
[2024-06-24] MEDS: Magnesium Oxide 400 MG TABLET PO ×2 (08:43→11:10)
[2024-06-24] MEDS: Losartan Potassium 25 MG TABLET PO (08:43)
[2024-06-24] MEDS: Furosemide 40 MG TABLET PO (08:43)
[2024-06-24] MEDS: Cholecalciferol (Vitamin D3) 25 MCG TABLET PO (08:43)
[2024-06-24] MEDS: Spironolactone 25 MG TABLET PO (08:44)
--- NOTE | 2024-06-24 09:18 | PM.PNCARD ---
Subjective Subjective Date of Service: 06/24/24 Interval history: Seen and examined at bedside. feeling better. Physical Exam Vital Signs: Last Vital Signs Temp 98.7 F 06/24/24 08:00 Pulse 106 H 06/24/24 08:38 Resp 20 06/24/24 08:00 BP 126/84 06/24/24 08:43 Pulse Ox 95 06/24/24 08:00 O2 Del Method Room Air 06/24/24 08:00 BMI result Body Mass Index 27.6 GENERAL APPEARANCE: in no acute distress, pleasant. NECK: no carotid bruit, no jugular venous distention. SKIN: no suspicious lesions, warm and dry. HEART: no murmurs, regular rate and rhythm. LUNGS: clear to auscultation bilaterally. ABDOMEN: soft, nontender. EXTREMITIES: no edema. PERIPHERAL PULSES: equal. NEUROLOGIC: No gross deficits, AAO X 3 Objective Labs and Meds 06/22/24 07:37 06/24/24 06:20 Lab results: Laboratory Results - last 24 hr 06/23/24 06/24/24 11:21 06:20 Sodium 144 140 Potassium 3.6 3.7 Chloride 100 99 Carbon Dioxide 33 H 28 Anion Gap 15 17 BUN 23 H 31 H Creatinine 0.85 0.87 Estim Creat Clear Calc 86.2 84.2 Estimated GFR > 60 > 60 Random Glucose 99 116 H Calcium 10.7 H D 10.1 Magnesium 1.6 B-Natriuretic Peptide 105 H Triglycerides 391 H Cholesterol 177 LDL Cholesterol, Calc 69 HDL Cholesterol 30 L Progress Note: A&P Assessment and plan (1) CHF (congestive heart failure): Status: Acute (2) Hypertensive urgency: Status: Acute Plan Pleasant 48 year female presenting with elevated blood pressures in congestive heart failure. She has background of alcoholism. Significantly improved with medication adjustment. Echo is showing normal LVEF. Abstinence from alcohol and salt restriction. Thank you for allowing me to participate in the care of your patient. Please feel free to contact me if you have any questions. Time Spent With Patient Time: Total time managing care of this patient today ____ minutes. Progress Note: Quality Stroke Does the patient have a stroke diagnosis?: No Procedures Date of Service Date of Service: 06/24/24
--- NOTE | 2024-06-24 10:26 | P.DS_ITS ---
DS: Providers Provider Date of Service: 06/24/24 Date of admission: 06/22/24 13:54 Date of discharge: 06/24/24 Primary care physician: Shereen Latham MD Consults: 06/22/24 13:57 Consult to Cardiology Routine Consulting Provider: Jameson Jeffries Reason for consultation: htn/chf Has provider been notified: No DS: Diagnosis Discharge Diagnosis (1) CHF (congestive heart failure): Status: Acute (2) Hypertensive urgency: Status: Acute DS: Summary Hospital Course Hospital Course: History of present illness: Date of Service: 06/22/24 Chief Complaint: Chest pain/headaches/orthopnea 48-year-old female past medical history of alcohol use disorder last intake June 04, anemia, breast cancer, essential hypertension, GERD, history of gout recent flare in April, presented to [facility] with several days of chest pain that she described as chest tightness localized to left anterior chest, constant associated with palpitation, worsening last 4-5 days, with shortness of breath, difficulty lying flat, and 11 lb weight gain in last couple months, while on prednisone , associated with global headache, with pressure on temples, neck discomfort, chlorthalidone was stopped couple months ago while she was on prolonged course of prednisone, and was restarted back yesterday, currently taking lisinopril, Coreg and chlorthalidone,Denies weakness numbness, no gait disturbance no vision loss, but since she was not feeling better unable to sleep last night due to orthopnea with the usual 3 pillows, she came to the ED and not ed to have sbp 160/104 worsened to 180/105 ,normal troponin, magnesium 1.4, BNP 470, alcohol level less than 10 stable hematocrit no leukocytosis chest x-ray unremarkable EKG showed nsr, nonspecific T-wave abnormality, prolonged QT no change in EKG from recent EKG of 04/21/2024, patient treated in the emergency room with magnesium, IV metoprolol, IV Lopressor and IV Lasix 20 mg and now being admitted for continued symptoms of chest pain palpitation orthopnea and elevated blood pressure. Hospital course: 47-year-old female with history of alcohol use disorder, essential hypertension, GERD, anemia, breast cancer, gout presented to [facility] with 2 weeks of chest pain, headache, shortness of breath with exertion and orthopnea with 11 lb weight gain in last couple months , patient diagnosed to have acute congestive heart failure with reduced EF and hypertensive urgency and admitted to telemetry unit , patient noted to have volume overload therefore treated with IV Lasix, Aldactone and losartan an echocardiogram was obtained that showed EF 55-60%, small loculated pericardial effusion and indeterminate diastolic function, patient responded to Lasix, BNP improved from 472 to 105, was followed closely by Cardiology, since blood pressure has improved with increase dose of Coreg and above medications, and shortness of breath has resolved, she is being discharged home with strong recommendation to abstain from alcohol and outpatient follow-up with Cardiology, home medications chlorthalidone and lisinopril has been discontinued, in regard to her chest pain EKG showed no ischemia, troponin x2 were normal and echocardiogram showed no wall motion abnormality. Acute hypomagnesemia repleted and being discharged on magnesium supplement likely due to poor nutrition with alcohol use , she is motivated to quit alcohol recommend to continue thiamine and folic acid, her H&H remains stable. History of gout no acute flare. Time Attestation Discharge Coordination Time (in mins): 40 Quality: Safe Use of Opioids Does Pt have an Active Cancer Diagnosis on the Problem List?: No Quality: Stroke Does the patient have a stroke diagnosis?: No Physical Exam Vital Signs: Vital Signs: Last Vital Signs Temp 98.7 F 06/24/24 08:00 Pulse 106 H 06/24/24 08:38 Resp 20 06/24/24 08:00 BP 126/84 06/24/24 08:43 Pulse Ox 95 06/24/24 08:00 O2 Del Method Room Air 06/24/24 08:00 BMI result Body Mass Index 27.6 Const: Other: General awake alert x3, in no acute distress. Anicteric sclera Neck no JVD. CVS regular rate rhythm, Respiratory lungs clear to auscultation, no respiratory distress, no wheeze, no rhonchi. Gastrointestinal abdomen soft, non tender, bowel sounds audible, no guarding , no rigidity. Extremities no edema. Neuro non focal. No tremors Skin no rash Psych appropriate affect DS: Data Data Completed and Pending Completed studies during hospitalization [Text1]: Procedures Detoxification Services for Substance Abuse Treatment (04/09/24) Insertion of Infusion Device into Left External Jugular Vein, Percutaneous Approach (04/09/24) Ultrasonography of Left Jugular Veins, Guidance (04/09/24) Labs on day of discharge: Laboratory Results - last 24 hr 06/23/24 06/24/24 11:21 06:20 Sodium 144 140 Potassium 3.6 3.7 Chloride 100 99 Carbon Dioxide 33 H 28 Anion Gap 15 17 BUN 23 H 31 H Creatinine 0.85 0.87 Estim Creat Clear Calc 86.2 84.2 Estimated GFR > 60 > 60 Random Glucose 99 116 H Calcium 10.7 H D 10.1 Magnesium 1.6 B-Natriuretic Peptide 105 H Triglycerides 391 H Cholesterol 177 LDL Cholesterol, Calc 69 HDL Cholesterol 30 L Discharge Plan Discharge Anticipated Discharge Date/Time: 06/24/24 10:18 Patient Disposition: Home, Self-Care Discharge Diagnosis: Acute CHF exacerbation due to preserved EF Hypomagnesemia Hypertensive urgency Referrals: Shereen Latham MD [Primary Care Provider] - 1 Week Discharge Medications: New furosemide 40 mg Tablet 40 mg PO DAILY Qty: 30 0RF Protocol: Hold for SBP< HOLD for SBP < : 90 carvedilol 6.25 mg Tablet 6.25 mg PO BID Qty: 60 0RF Protocol: Hold for SBP/HR < HOLD for SBP < : 90 HOLD for HR < : 60 spironolactone 25 mg Tablet 25 mg PO DAILY Qty: 30 0RF Protocol: Hold for SBP< HOLD for SBP < : 90 losartan 25 mg Tablet 25 mg PO BID Qty: 60 0RF Protocol: Hold for SBP< HOLD for SBP < : 90 Continued (DME) ACL defiance brace See Rx Instructions .ROUTE .MEDSUPPLY Qty: 1 0RF Rx Instructions: n/a albuterol sulfate 90 mcg/actuation HFA aerosol inhaler 2 puff inhalation Q4-6H PRN (Reason: shortness of breath or wheezing) Qty: 8.5 0RF thiamine HCl (vitamin B1) 100 mg tablet 1 tab PO DAILY omeprazole 20 mg capsule,delayed release(DR/EC) 1 cap PO DAILY@0630 folic acid 1 mg tablet 1 tab PO DAILY magnesium oxide 400 mg (241.3 mg magnesium) Tablet 400 mg PO BIDPC 30 Days Qty: 60 0RF cholecalciferol (vitamin D3) [Vitamin D3] 25 mcg (1,000 unit) capsule 1 cap PO DAILY Certavite-Antioxidant 18-400 mg-mcg tablet 1 tab PO DAILY acetaminophen 500 mg tablet 1 tab PO Q6H PRN (Reason: fever) cetirizine 10 mg tablet 10 mg PO DAILY PRN (Reason: allergies) Discontinued chlorthalidone 25 mg tablet 1 tab PO DAILY carvedilol 3.125 mg tablet 1 tab PO BID lisinopril 40 mg tablet 40 mg PO DAILY Discharge Orders: Discharge Order (Routine); Ordered 06/24/24 Ordered By: Hernan Lee Diet: Low salt diet Activity on Discharge: As tolerated Stand Alone Forms: Patient Portal Discharge page Print Language: Polish Care Plan Goals: Continue all new medications including Lasix, losartan, and Aldactone as directed Recommend complete abstinence from alcohol Dose of Coreg increased to 6.25 mg twice daily Health Concerns: Hypertension Plan of Treatment: Outpatient follow-up with scale adjuster Dr. Jeffries call for appointment in 2 weeks Follow-up with primary care physician call for appointment Assessment: As above
--- NOTE | 2024-06-24 11:06 | MHC.CM.PN ---
PT MEDICALLY CLEARED FOR DC HOME W/RESUMP OF NURSE [employer] HRS, CM MET W/PT WHO DECLINES ASSISTANCE W/TRANSPORT AND REPORTS A FRIEND IS COMING AND WILL TAKE THE BUS WITH HER, PT ALSO DECLINED BUS PASS BUSSES ARE FREE THROUGH END June.
== END 2024-06-24 11:53 | disposition home or self-care (01) | DRG 199 ==
LOC: HO.ED 11:51 → HO.EDOVER 14:01 → HO.IMC 23:56
PROVIDERS: Physician Assistant; Admitting Provider Hospitalist; Emergency Provider Emergency Medicine; PCP Family Medicine; Visit Provider Hospitalist
DX: I16.0 Hypertensive urgency (principal); I50.21 Acute systolic (congestive) heart failure; I11.0 Hypertensive heart disease with heart failure; I42.9 Cardiomyopathy, unspecified; D64.9 Anemia, unspecified; F10.20 Alcohol dependence, uncomplicated; E83.42 Hypomagnesemia; M10.9 Gout, unspecified; Z20.822 Contact with and (suspected) exposure to COVID-19; Z91.040 Latex allergy status; Z79.899 Other long term (current) drug therapy
CPT/HCPCS: 0241U; 36415; 71046; 80048; 80053; 80061; 80307; 83735; 83880; 84484; 85025; 93005; 93306; 99285; J1650; J1920; J1940; J2060; J3475

== ENCOUNTER 2024-06-22 13:54 | Outpatient (BNV) | payer MEDICAID, SELFPAY | END 2024-06-23 07:00 | PROVIDERS: Admitting Provider Hospitalist; Emergency Provider Emergency Medicine; PCP Family Medicine; Visit Provider Internal Medicine Cardiovascular Disease | DX: I31.39 Other pericardial effusion (noninflammatory) (principal) | CPT/HCPCS: 93306 ==

== ENCOUNTER → 2024-06-22 13:54 | Outpatient (BNV) | payer MEDICAID, SELFPAY | PROVIDERS: Admitting Provider Hospitalist; Emergency Provider Emergency Medicine; Visit Provider Hospitalist | DX: I16.0 Hypertensive urgency (principal); I50.9 Heart failure, unspecified | CPT/HCPCS: 99223; 99232; 99239 ==

== ENCOUNTER → 2024-06-22 13:54 | Outpatient (BNV) | payer MEDICAID, SELFPAY | PROVIDERS: Admitting Provider Hospitalist; Emergency Provider Emergency Medicine; Visit Provider Internal Medicine Cardiovascular Disease | DX: I50.9 Heart failure, unspecified (principal) | CPT/HCPCS: 99223; 99232 ==

== ENCOUNTER 2024-07-06 16:40 | Emergency (ER) | payer MEDICAID, SELFPAY ==
--- NOTE | ~2024-07-06 | XR_ITS ---
EXAMINATION: XR CHEST CLINICAL INFORMATION: Shortness of breath COMPARISON: Chest xray on 06/22/24 TECHNIQUE: 2 views of the chest were obtained. FINDINGS: No significant abnormality is noted involving the heart, lungs, mediastinum, bony thorax or soft tissues. XR/XR chest 2V IMPRESSION: Unremarkable examination. Electronically signed by: Elana Leiva MD 07/06/2024 06:15 PM EDT RP
--- NOTE | 2024-07-06 16:47 | ECG_ITS ---
Test Reason : CHEST PAIN Blood Pressure : / mmHG Vent. Rate : 102 BPM Atrial Rate : 102 BPM P-R Int : 168 ms QRS Dur : 074 ms QT Int : 362 ms P-R-T Axes : 063 -02 056 degrees QTc Int : 471 ms Sinus tachycardia Nonspecific T wave abnormality Abnormal ECG When compared with ECG of 22-JUN-2024 07:24, QT has shortened Referred By: Generic ED Physician Electronically Signed By:DONAVAN LOZANO
[2024-07-06 17:08] VITALS: BP 120/79; PULSE 104; RESP 20; TEMP 36.3; O2SAT 99; BMI 26.6
--- NOTE | 2024-07-06 17:13 | ED_ITS ---
HPI - Chest Pain General Chief Complaint: Chest Pain Stated Complaint: SOB, chest tightness, palpitations Time Seen by Provider: 07/06/24 21:21 Source: patient Limitations: no limitations History of Present Illness HPI narrative: 48-year-old female with a history of recent hospital admission for hypertensive urgency and new heart failure, found to have diastolic failure with preserved ejection fraction of 55-60%, hypertension, alcohol use disorder, anemia, breast cancer , GERD, gout presents with viral symptoms x3 days. Patient states she is having similar chest discomfort, shortness of breath, nasal congestion, fatigue with a headache. Patient unable to describe the nature of her chest discomfort. Patient states she is having trouble sleeping at night because she can not breathe through her nose or her mouth. Denies wheezing, diaphoresis, nausea, vomiting. Related Data Home Medications ?Medication ?Instructions ?Recorded ?Confirmed folic acid 1 mg tablet 1 tab PO DAILY 09/30/21 06/22/24 omeprazole 20 mg capsule,delayed 1 cap PO DAILY@0630 09/30/21 06/22/24 release thiamine HCl (vitamin B1) 100 mg 1 tab PO DAILY 09/30/21 06/22/24 tablet acetaminophen 500 mg tablet 1 tab PO Q6H PRN fever 06/04/22 06/22/24 cholecalciferol (vitamin D3) 25 1 cap PO DAILY 06/04/22 06/22/24 mcg (1,000 unit) capsule (Vitamin D3) multivitamin-ferrous 1 tab PO DAILY 06/04/22 06/22/24 fumarate-folic acid 18 mg-400 mcg tablet (Certavite-Antioxidant) cetirizine 10 mg tablet 10 mg PO DAILY PRN allergies 04/10/24 06/22/24 Previous Rx's ?Medication ?Instructions ?Recorded ACL defiance brace #1 ea 07/29/21 albuterol sulfate 90 mcg/actuation 2 puff inhalation Q4-6H PRN 09/12/21 aerosol inhaler shortness of breath or wheezing #8.5 grams magnesium oxide 400 mg (241.3 mg 400 mg PO BIDPC 30 days #60 tabs 10/02/21 magnesium) tablet carvedilol 6.25 mg tablet 6.25 mg PO BID #60 tabs 06/24/24 furosemide 40 mg tablet 40 mg PO DAILY #30 tabs 06/24/24 losartan 25 mg tablet 25 mg PO BID #60 tabs 06/24/24 spironolactone 25 mg tablet 25 mg PO DAILY #30 tabs 06/24/24 colchicine 0.6 mg tablet 0.6 mg PO BID #60 tabs 07/06/24 Allergies Allergy/AdvReac Type Severity Reaction Status Date / Time amoxicillin [AMOXICILLIN] Allergy Intermediate rash, Verified 07/06/24 17:11 rash/itching sulfamethoxazole Allergy Intermediate RASH Verified 07/06/24 17:11 [From BACTRIM] trimethoprim [From BACTRIM] Allergy Intermediate RASH Verified 07/06/24 17:11 hydrocodone [Hydrocodone] Allergy Mild ITCH Verified 07/06/24 17:11 ibuprofen [From Motrin] Allergy Mild UPSET Verified 07/06/24 17:11 STOMACH latex [Latex] Allergy Mild ITCH Verified 07/06/24 17:11 Review of Systems 2 Review of Systems: Yes all other systems are reviewed and are negative Constitutional: Constitutional: Reports fatigue, Denies fever(s) and Reports headache(s) ENT: Reports headache(s) and Reports nasal congestion Cardiovascular: Cardiovascular: Reports chest pain and Reports dyspnea Respiratory: Respiratory: Reports dyspnea Neurologic: Reports headache(s) Endocrine: Endocrine: Reports fatigue PMFSH Past Medical History Attestation statement: The following information was validated with the patient. Medical History Depression Anxiety and depression Lower back pain History of COVID-19 Uncontrolled hypertension Panic attack H/O ETOH abuse Anxiety History of low potassium Breast cancer Hypertension Surgical History History of carpal tunnel release Hx of tubal ligation History of breast lump/mass excision H/O: hysterectomy Family History Family History Mother Heart disease Alzheimers disease Social History Social History Household Members: None Housing: Apartment Do you presently have visiting nurse or other home services: No Alcohol intake: former Comment: 1:1 SI Patient Tobacco Use Status: Never used Tobacco Tobacco use type: Cigarette Cigarette Packs Per Day: 1 Cigarettes Per Day: 20.0 Years Smoked: 38YRS Smoked in Last 30 Days: Yes e-Cigarette/Vaping Use: Never Used Second Hand Smoke Exposure: Yes Use of substances other than those prescribed or required for medical reasons: No Advance Directives: Yes Advance Directives on File: Yes Advance Directives Date on File: 02/11/22 Patient : No service: No Current occupational status: disabled Physical Exam 2 Vital Signs: Vital Signs: Last Vital Signs Temp 97.6 F 07/06/24 21:31 Pulse 104 H 07/06/24 21:31 Resp 21 H 07/06/24 21:31 BP 112/77 07/06/24 21:31 Pulse Ox 98 07/06/24 21:31 O2 Del Method Room Air 07/06/24 21:31 BMI result Body Mass Index 26.6 Const: Other: Alert, well in appearance Orientation/consciousness: patient oriented x3 Resp: Other: Nonlabored respirations lungs clear to auscultation Cardio: Other: Normal peripheral perfusion, no pitting edema Skin: Other: Warm dry no rash Neuro: General: patient oriented x3, no focal motor deficits and CN's II-XI intact bilaterally Psych: Other: Cooperative Course Course Course Narrative: This is an RME: Additional HPI, ROS, PE not included below will be deferred to primary provider. RME assessment and note performed by: Mena Prakash PA-C This is a 48-year-old female who presents emergency department with complaints of shortness of breath, chest tightness, headaches, for the last 3 days. She was recently admitted for CHF. Plan: will have, EKG, Medical Decision Making Medical Decision Making MDM Narrative: 48-year-old female with a history of recent hospital admission for hypertensive urgency and new heart failure, found to have diastolic failure with preserved ejection fraction of 55-60%, hypertension, alcohol use disorder, anemia, breast cancer , GERD, gout presents with viral symptoms x3 days. Patient states she is having similar chest discomfort, shortness of breath, nasal congestion, fatigue with a headache. Patient unable to describe the nature of her chest discomfort. Patient states she is having trouble sleeping at night because she can not breathe through her nose or her mouth. Denies wheezing, diaphoresis, nausea, vomiting. Problem: Hypertension, alcohol abuse, new diastolic failure History: Per patient I have considered the following differential diagnoses: ACS, heart failure exacerbation, viral syndrome, pneumonia, costochondritis Plan: Given the constellation of symptoms, the patient has viral syndrome. She was screened for COVID, RSV and flu, the panel is negative. I explained to her that we can not possibly tests for every respiratory virus circulating within the community. We will send with home care instructions for her nasal congestion with sinus related headache. Her assessment was started in [facility], ACS was considered, screening labs including troponin, EKG and chest x-ray obtained. New heart failure exacerbation was considered, BNP obtained. To note, this is not ACS, I feel her discomfort is likely related to her viral syndrome, this is likely costochondritis. She is also not overtly hypertensive, does not appear volume overloaded on exam, is not hypoxic, to suggest heart failure exacerbation. I have independently reviewed the following tests: Labs: Slight leukocytosis, not anemic, no electrolyte abnormality, troponin x2 are flat, BNP 22, viral panel negative EKG: Sinus tachycardia, rate of 102, no ischemic changes no ectopy, tachycardia not persistent, Chest x-ray:CLINICAL INFORMATION: Shortness of breath COMPARISON: Chest xray on 06/22/24 TECHNIQUE: 2 views of the chest were obtained. FINDINGS: No significant abnormality is noted involving the heart, lungs, mediastinum, bony thorax or soft tissues. XR/XR chest 2V IMPRESSION: Unremarkable examination. Lab Data 07/06/24 18:08 07/06/24 18:08 Labs: Lab Results 07/06/24 07/06/24 Range/Units 18:08 21:42 WBC 13.4 H (4.8-10.8) X10*3/uL RBC 3.96 L (4.20-5.50) X10*6/uL Hgb 11.9 L (12.0-16.0) g/dl Hct 35.4 L (37.0-47.0) % MCV 89.4 (80.0-98.0) fL MCH 30.1 (27.0-33.0) pg MCHC 33.6 (31.0-35.0) g/dl RDW 13.6 (11.0-16.0) % Plt Count 416 H D (160-400) X10*3/uL MPV 10.4 (9.4-12.3) fL Immature Gran % (Auto) 0.8 H (0.0-0.4) % Neut % (Auto) 62.6 (45-73) % Lymph % (Auto) 27.2 (20-40) % Knott % (Auto) 6.9 (2-11) % Eos % (Auto) 1.8 (0-4) % Baso % (Auto) 0.7 (0-2) % Lymph # (Auto) 3.6 (1.2-4.9) X10*3/uL Knott # (Auto) 0.9 (0.1-1.2) X10*3/uL Eos # (Auto) 0.2 (0.0-0.4) X10*3/uL Baso # (Auto) 0.1 (0.0-0.2) X10*3/uL Abs Immat Gran (auto) 0.11 H (0.00-0.03) X10*3/uL Absolute Neuts (auto) 8.4 H (2.0-8.3) x10*3/uL Absolute Nucleated RBC 0.000 (0.0-0.012) X10*3/uL Nucleated RBC % (auto) 0.0 (0.0-0.2) /100WBC Sodium 141 (135-145) mmol/L Potassium 4.8 D (3.3-5.1) mmol/L Chloride 106 (96-108) mmol/L Carbon Dioxide 22 (22-29) mmol/L Anion Gap 18 (12-20) BUN 24 H (9-16) mg/dL Creatinine 0.93 (0.5-1.4) mg/dL Estim Creat Clear Calc 77.4 Estimated GFR > 60 Random Glucose 140 H (60-115) mg/dL Calcium 10.4 H (8.4-10.2) mg/dL Total Bilirubin 0.2 (0.0-1.0) mg/dL AST 24 (5-31) U/L ALT 23 (0-31) U/L Alkaline Phosphatase 89 (39-117) U/L Troponin I High Sens 4.0 D 3.5 (<3.5-17.0) ng/L B-Natriuretic Peptide 22 (<100) pg/mL Total Protein 8.4 H (6.5-8.0) g/dL Albumin 4.4 (3.5-5.0) g/dL Influenza Type A (PCR) NEGATIVE (Negative) Influenza Type B (PCR) NEGATIVE (Negative) RSV RNA Qual (PCR) NEGATIVE (Negative) SARS-CoV-2 RNA (RT-PCR) NEGATIVE (Negative) Discharge Plan Discharge Clinical Impression: Acute viral syndrome, Costochondritis, acute Patient Disposition: Home, Self-Care Instructions: Viral Syndrome (ED), Costochondritis (ED) Additional Instructions: All of your screening labs including 2 cardiac enzymes were normal. There were no concerning changes on her EKG and your chest x-ray was clear. Your discomfort is likely related to costochondritis in the setting of your viral related symptoms. If you use nepu-hyz-bmududg ibuprofen, which will be helpful in managing this type of discomfort, use 600 mg taken every 6 hours with food, to prevent GI upset. You should be using rzez-xas-swsufas Mucinex, this will help your nasal congestion by thinning your secretions. In addition, an vhpz-kkk-jicrfhy antihistamine such as Zyrtec, we will further alleviate the congestion. Follow up with your primary care provider as needed. If you develop a fever, you can use Tylenol 1000 mg taken can every 8 hours. Prescriptions: No Action (DME) ACL defiance brace See Rx Instructions .ROUTE .MEDSUPPLY Qty: 1 0RF Rx Instructions: n/a colchicine 0.6 mg tablet 0.6 mg PO BID Qty: 60 1RF albuterol sulfate 90 mcg/actuation HFA aerosol inhaler 2 puff inhalation Q4-6H PRN (Reason: shortness of breath or wheezing) Qty: 8.5 0RF thiamine HCl (vitamin B1) 100 mg tablet 1 tab PO DAILY omeprazole 20 mg capsule,delayed release(DR/EC) 1 cap PO DAILY@0630 folic acid 1 mg tablet 1 tab PO DAILY magnesium oxide 400 mg (241.3 mg magnesium) Tablet 400 mg PO BIDPC 30 Days Qty: 60 0RF cholecalciferol (vitamin D3) [Vitamin D3] 25 mcg (1,000 unit) capsule 1 cap PO DAILY Certavite-Antioxidant 18-400 mg-mcg tablet 1 tab PO DAILY acetaminophen 500 mg tablet 1 tab PO Q6H PRN (Reason: fever) furosemide 40 mg Tablet 40 mg PO DAILY Qty: 30 0RF Protocol: Hold for SBP< HOLD for SBP < : 90 carvedilol 6.25 mg Tablet 6.25 mg PO BID Qty: 60 0RF Protocol: Hold for SBP/HR < HOLD for SBP < : 90 HOLD for HR < : 60 spironolactone 25 mg Tablet 25 mg PO DAILY Qty: 30 0RF Protocol: Hold for SBP< HOLD for SBP < : 90 losartan 25 mg Tablet 25 mg PO BID Qty: 60 0RF Protocol: Hold for SBP< HOLD for SBP < : 90 cetirizine 10 mg tablet 10 mg PO DAILY PRN (Reason: allergies) Print Language: Liberian
[2024-07-06 18:12] LABS: MANUAL DIFF FLAG NO
[2024-07-06 18:16] LABS: Basophils Absolute Auto 0.1 X10*3/uL (0.0-0.2); Basophils Percent Auto 0.7 % (0-2); Eosinophils Absolute Auto 0.2 X10*3/uL (0.0-0.4); Eosinophils Percent Auto 1.8 % (0-4); Hematocrit 35.4 % (37.0-47.0); Hemoglobin 11.9 g/dl (12.0-16.0); Imm Gran Abs Auto 0.11 X10*3/uL (0.00-0.03); Imm Gran Pct Auto 0.8 % (0.0-0.4); Lymphocytes Absolute Auto 3.6 X10*3/uL (1.2-4.9); Lymphocytes Percent Auto 27.2 % (20-40); Mean Corpuscular HGB Conc 33.6 g/dl (31.0-35.0); Mean Corpuscular Hemoglobin 30.1 pg (27.0-33.0); Mean Corpuscular Volume 89.4 fL (80.0-98.0); Mean Platelet Volume 10.4 fL (9.4-12.3); Monocytes Absolute Auto 0.9 X10*3/uL (0.1-1.2); Monocytes Percent Auto 6.9 % (2-11); Neutrophils Absolute Auto 8.4 x10*3/uL (2.0-8.3); Neutrophils Percent Auto 62.6 % (45-73); Platelet Count 416 X10*3/uL (160-400); Red Blood Count 3.96 X10*6/uL (4.20-5.50); Red Cell Distribution Width 13.6 % (11.0-16.0); White Blood Count 13.4 X10*3/uL (4.8-10.8)
[2024-07-06 18:29] LABS: Alanine Aminotransferase 23 U/L (0-31); Albumin Level 4.4 g/dL (3.5-5.0); Alkaline Phosphatase 89 U/L (39-117); Anion Gap 18 (12-20); Aspartate Amino Transferase 24 U/L (5-31); Bilirubin Total 0.2 mg/dL (0.0-1.0); Blood Urea Nitrogen 24 mg/dL (9-16); Calcium 10.4 mg/dL (8.4-10.2); Carbon Dioxide 22 mmol/L (22-29); Chloride 106 mmol/L (96-108); Creatinine Clr Calc Pharmacy 77.4; Estimated Glomerular Filt Rate > 60; Glucose Random 140 mg/dL (60-115); Potassium 4.8 mmol/L (3.3-5.1); Sodium 141 mmol/L (135-145); Total Protein 8.4 g/dL (6.5-8.0)
[2024-07-06 18:33] LABS: B Type Natriuretic Peptide 22 pg/mL (<100)
[2024-07-06 18:50] LABS: Influenza A PCR NEGATIVE (Negative); Influenza B PCR NEGATIVE (Negative); Resp Syncy Virus RNA Qual PCR NEGATIVE (Negative); SARS COV2 PCR INHOUSE NEGATIVE (Negative)
[2024-07-06 21:31] VITALS: BP 112/77; PULSE 104; RESP 21; TEMP 36.4; O2SAT 98
[2024-07-06 22:06] LABS: Troponin-I High Sensitivity 3.5 ng/L (<3.5-17.0)
[2024-07-06 22:25] VITALS: BP 110/81; PULSE 94; RESP 15; TEMP 36.6; O2SAT 98
[2024-07-06 22:42] VITALS: BP 110/81; PULSE 94; RESP 15; TEMP 36.6; O2SAT 98
== END 2024-07-06 22:44 | disposition home or self-care (01) ==
PROVIDERS: Physician Assistant Medical; Emergency Provider Emergency Medicine; PCP Family Medicine
DX: B34.9 Viral infection, unspecified (principal); M94.0 Chondrocostal junction syndrome [Tietze]; R09.81 Nasal congestion; R06.02 Shortness of breath; I10 Essential (primary) hypertension; R51.9 Headache, unspecified; M10.9 Gout, unspecified; Z03.818 Encounter for observation for suspected exposure to other biological agents ruled out
CPT/HCPCS: 0241U; 36415; 71046; 80053; 83880; 84484; 85025; 93005; 99283; 99285

== ENCOUNTER 2024-07-08 10:13 | Outpatient (REF) | payer MEDICAID, SELFPAY ==
--- NOTE | ~2024-07-08 | US_ITS ---
EXAMINATION: US ABDOMEN COMPLETE CLINICAL INFORMATION: Transaminitis. COMPARISON: CT abdomen and pelvis 01/02/2023. Renal ultrasound 10/18/2021. TECHNIQUE: Real-time imaging of the abdominal viscera. Limited visualization due to bowel gas. FINDINGS: PANCREAS: Limited visualization of pancreatic tail and head. Imaged portion of pancreatic body is unremarkable. ABDOMINAL AORTA: Within normal limits in caliber. INFERIOR VENA CAVA: Visualized portions are normal. LIVER: Increased hepatic parenchymal heterogeneity and echogenicity could be associated with hepatocellular disease/hepatic steatosis and substantially limits visualization. Hepatic contour is smooth. Correlation with liver function tests and clinical exam recommended to determine further management. GALLBLADDER: No gallstones. No gallbladder wall thickening. COMMON BILE DUCT: Normal in caliber measuring 0.1 cm in diameter. RIGHT KIDNEY: Possible hypertrophied column of Carlos difficult to confirm due to limited visualization. No hydronephrosis. No renal calculi. Limited visualization. The kidney measures 12.1 cm in maximum dimension. LEFT KIDNEY: 1.0 cm left renal lower pole cyst with benign features. There is no indication for follow-up imaging. Left renal midpole echogenic focus is difficult to characterize due to limited visualization, possibly a calcified vessel versus nonobstructive calculus. No hydronephrosis. The kidney measures 11.4 cm in maximum dimension. SPLEEN: Normal. The spleen measures 9.1 cm in maximum dimension. FREE FLUID: None. US/US abdomen complete IMPRESSION: 1. Increased hepatic parenchymal heterogeneity and echogenicity could be associated with hepatocellular disease/hepatic steatosis and substantially limits visualization. Hepatic contour is smooth. Correlation with liver function tests and clinical exam recommended to determine further management. 2. Left renal midpole echogenic focus is difficult to characterize due to limited visualization, possibly a calcified vessel versus nonobstructive calculus. No hydronephrosis. Electronically signed by: Shani Allen MD 07/19/2024 02:02 PM EDT
== END 2024-07-08 10:14 | disposition home or self-care (01) ==
LOC: HO.US 10:13
PROVIDERS: PCP Family Medicine; Visit Provider Family Medicine
DX: R74.01 Elevation of levels of liver transaminase levels (principal)
CPT/HCPCS: 76700

== ENCOUNTER 2024-07-11 10:05 | Day surgery (SDC) | payer MEDICAID, SELFPAY ==
--- NOTE | 2024-07-07 09:13 | P.CONAN_ITS ---
Documented by User: Rajni Valderrama NP 07/07/24 09:21 HPI - Anesthesia Eval Consult details Narrative: 48yo F for Colonoscopy [facility] admit 06/2024: ETOH, new heart failture Hospital course: 47-year-old female with history of alcohol use disorder, essential hypertension, GERD, anemia, breast cancer, gout presented to [facility] with 2 weeks of chest pain, headache, shortness of breath with exertion and orthopnea with 11 lb weight gain in last couple months , patient diagnosed to have acute congestive heart failure with reduced EF and hypertensive urgency and admitted to telemetry unit , patient noted to have volume overload therefore treated with IV Lasix, Aldactone and losartan an echocardiogram was obtained that showed EF 55-60%, small loculated pericardial effusion and indeterminate diastolic function, patient responded to Lasix, BNP improved from 472 to 105, was followed closely by Cardiology, since blood pressure has improved with increase dose of Coreg and above medications, and shortness of breath has resolved, she is being discharged home with strong recommendation to abstain from alcohol and outpatient follow-up with Cardiology, home medications chlorthalidone and lisinopril has been discontinued, in regard to her chest pain EKG showed no ischemia, troponin x2 were normal and echocardiogram showed no wall motion abnormality. Acute hypomagnesemia repleted and being discharged on magnesium supplement likely due to poor nutrition with alcohol use , she is motivated to quit alcohol recommend to continue thiamine and folic acid, her H&H remains stable. History of gout no acute flare. [facility] ED 07/06/24 with atypical CP, negative cardiac testing, likely costochondritis PMFSH Active Problems Active Problems: All Active Problems Gout (Acute) Alcohol use disorder, severe, dependence (Acute) Osteoarthritis of right knee (Acute) Malignant neoplasm of breast (Acute) Anemia (Acute) Bilateral knee pain (Acute) Bilateral primary osteoarthritis of knee (Acute) BENIGNO (acute kidney injury) (Acute) Hypomagnesemia (Acute) Post-traumatic osteoarthritis of left knee (Acute) Complete tear of anterior cruciate ligament of left knee (Acute) Iron deficiency anemia (Acute) Chest pain (Acute) Elevated troponin (Acute) COVID (Acute) Carpal tunnel syndrome of right wrist (Acute) Carpal tunnel syndrome of left wrist (Acute) Uncontrolled hypertension (Acute) Past Medical History Medical History Depression Anxiety and depression Lower back pain History of COVID-19 Uncontrolled hypertension Panic attack H/O ETOH abuse Anxiety History of low potassium Breast cancer Hypertension Family History Family History Mother Heart disease Alzheimers disease Surgical History Surgical History History of carpal tunnel release Hx of tubal ligation History of breast lump/mass excision H/O: hysterectomy Social History Social History Household Members: None Housing: Apartment Are you a primary plant health care technician to a significant other at home: No Do you presently have visiting nurse or other home services: No Alcohol intake: former Comment: 1:1 SI Patient Tobacco Use Status: Current everyday Tobacco user Tobacco use type: Cigarette Cigarette Packs Per Day: 1 Cigarettes Per Day: 2 Years Smoked: 38YRS e-Cigarette/Vaping Use: Never Used Second Hand Smoke Exposure: Yes Use of substances other than those prescribed or required for medical reasons: No Have you been hit, kicked, punched, or otherwise hurt by someone within the past year? If so, by whom?: No Advance Directives: No Advance Directives Information Provided: Yes Advance Directives Date on File: 02/11/22 Recently lost weight without trying: No service: No Current occupational status: disabled Meds Allergies Allergy/AdvReac Type Severity Reaction Status Date / Time amoxicillin [AMOXICILLIN] Allergy Intermediate rash, Verified 07/06/24 17:11 rash/itching sulfamethoxazole Allergy Intermediate RASH Verified 07/06/24 17:11 [From BACTRIM] trimethoprim [From BACTRIM] Allergy Intermediate RASH Verified 07/06/24 17:11 hydrocodone [Hydrocodone] Allergy Mild ITCH Verified 07/06/24 17:11 ibuprofen [From Motrin] Allergy Mild UPSET Verified 07/06/24 17:11 STOMACH latex [Latex] Allergy Mild ITCH Verified 07/06/24 17:11 Home Medications ?Medication ?Instructions ?Recorded ?Confirmed ?Last Taken ?Type folic acid 1 mg tablet 1 tab PO DAILY 09/30/21 06/22/24 06/22/24 History omeprazole 20 mg capsule,delayed 1 cap PO DAILY@0630 09/30/21 06/22/24 07/11/24 History release thiamine HCl (vitamin B1) 100 mg 1 tab PO DAILY 09/30/21 06/22/24 06/22/24 History tablet acetaminophen 500 mg tablet 1 tab PO Q6H PRN fever 06/04/22 06/22/24 06/22/24 History cholecalciferol (vitamin D3) 25 1 cap PO DAILY 06/04/22 06/22/24 06/22/24 History mcg (1,000 unit) capsule (Vitamin D3) multivitamin-ferrous 1 tab PO DAILY 06/04/22 06/22/24 06/22/24 History fumarate-folic acid 18 mg-400 mcg tablet (Certavite-Antioxidant) cetirizine 10 mg tablet 10 mg PO DAILY PRN allergies 04/10/24 06/22/24 06/22/24 History Exam Pertinent Lab Results Pertinent Lab Results: Laboratory Tests 07/06/24 18:08 WBC 13.4 H Hgb 11.9 L Hct 35.4 L Plt Count 416 H D Sodium 141 Potassium 4.8 D Chloride 106 Carbon Dioxide 22 BUN 24 H Creatinine 0.93 Narrative Narrative: EKG 07/2024 Vent. Rate : 102 BPM Atrial Rate : 102 BPM P-R Int : 168 ms QRS Dur : 074 ms QT Int : 362 ms P-R-T Axes : 063 -02 056 degrees QTc Int : 471 ms Sinus tachycardia Otherwise normal ECG When compared with ECG of 22-JUN-2024 07:24, No significant change was found ECHO 06/2024 Conclusions: - Normal left ventricular size and systolic function. There is mildly increased left ventricular wall thickness. The visually estimated ejection fraction is between 55-60%. - Diastolic function is indeterminate on the basis of available data. - Normal right ventricular cavity size and systolic function. - There is mild dilatation of the ascending aorta measuring 3.70 cm. - There is a small loculated pericardial effusion overlying the left ventricle. There are no definitive echocardiographic findings of tamponade physiology. Assessment and Plan Assessment Anesthesia Assessment: Chart Reviewed Documented by User: Darcy Bro MD 07/11/24 11:40 PMFSH Past Medical History Medical History Depression Anxiety and depression Lower back pain History of COVID-19 Uncontrolled hypertension Panic attack H/O ETOH abuse Anxiety History of low potassium Breast cancer Hypertension Family History Family History Mother Heart disease Alzheimers disease Family history of problems with anesthesia: No Surgical History Surgical History History of carpal tunnel release Hx of tubal ligation History of breast lump/mass excision H/O: hysterectomy History of Problems with Anesthesia: No Social History Social History Household Members: None Housing: Apartment Are you a primary plant health care technician to a significant other at home: No Do you presently have visiting nurse or other home services: No Alcohol intake: former Comment: 1:1 SI Patient Tobacco Use Status: Current everyday Tobacco user Tobacco use type: Cigarette Cigarette Packs Per Day: 1 Cigarettes Per Day: 2 Years Smoked: 38YRS e-Cigarette/Vaping Use: Never Used Second Hand Smoke Exposure: Yes Use of substances other than those prescribed or required for medical reasons: No Have you been hit, kicked, punched, or otherwise hurt by someone within the past year? If so, by whom?: No Advance Directives: No Advance Directives Information Provided: Yes Advance Directives Date on File: 02/11/22 Recently lost weight without trying: No service: No Current occupational status: disabled Meds Allergies Allergy/AdvReac Type Severity Reaction Status Date / Time amoxicillin [AMOXICILLIN] Allergy Intermediate rash, Verified 07/06/24 17:11 rash/itching sulfamethoxazole Allergy Intermediate RASH Verified 07/06/24 17:11 [From BACTRIM] trimethoprim [From BACTRIM] Allergy Intermediate RASH Verified 07/06/24 17:11 hydrocodone [Hydrocodone] Allergy Mild ITCH Verified 07/06/24 17:11 ibuprofen [From Motrin] Allergy Mild UPSET Verified 07/06/24 17:11 STOMACH latex [Latex] Allergy Mild ITCH Verified 07/06/24 17:11 Home Medications ?Medication ?Instructions ?Recorded ?Confirmed ?Last Taken ?Type folic acid 1 mg tablet 1 tab PO DAILY 09/30/21 06/22/24 06/22/24 History omeprazole 20 mg capsule,delayed 1 cap PO DAILY@0630 09/30/21 06/22/24 07/11/24 History release thiamine HCl (vitamin B1) 100 mg 1 tab PO DAILY 09/30/21 06/22/24 06/22/24 History tablet acetaminophen 500 mg tablet 1 tab PO Q6H PRN fever 06/04/22 06/22/24 06/22/24 History cholecalciferol (vitamin D3) 25 1 cap PO DAILY 06/04/22 06/22/24 06/22/24 History mcg (1,000 unit) capsule (Vitamin D3) multivitamin-ferrous 1 tab PO DAILY 06/04/22 06/22/24 06/22/24 History fumarate-folic acid 18 mg-400 mcg tablet (Certavite-Antioxidant) cetirizine 10 mg tablet 10 mg PO DAILY PRN allergies 04/10/24 06/22/24 06/22/24 History Exam Airway Mallampati Class: II TM Dist: >3cm Neck ROM: Full Heart: rrr Lungs: cta Assessment and Plan Assessment Anesthesia Assessment: Anesthesia Plan Discussed Final Anesthetic Review Family History of Problems with Anesthesia: No History of Problems with Anesthesia: No NPO: Yes ASA Class: III Final Preanesthetic Review: No Changes in Pt Med Stat, Meds/Allgs Chart Reviewed and Consent Obtained/Reviewed Patient Risk: Low Procedure Risk: Low Anesthetic Plan Anesthetic Plan: MAC: Disposition: Standard PACU
[2024-07-11 11:05] VITALS: BP 125/89; PULSE 89; RESP 16; TEMP 36.7; O2SAT 97; BMI 27.4
[2024-07-11] MEDS: Lactated Ringers 1,000 ML 100 ML IVCONT (11:21)
--- NOTE | 2024-07-11 12:23 | MHC.SHP ---
Pre-Procedural Eval Section A - 24 Hr Update-Section A only Date of Service: 07/11/24 The patient is an INPATIENT: No The patient has been examined within 24 hours of the surgical procedure. The History & Physical has been completed within 30 days and I have reviewed it.: No Section B - Complete if H&P > 30 days Chief Complaint: Positive Cologuard test Relevant Family History (Specify if Yes): No Relevant Social History: Tobacco Use Present Medications: see Short Stay Collaborative assessment Medical History: Significant History (Anxiety and depression Lower back pain History of COVID-19 Uncontrolled hypertension Panic attack H/O ETOH abuse Anxiety History of low potassium Breast cancer Hypertension) History of Previous Operations: Relevant previous surgery/procedure and date(s) (History of carpal tunnel release Hx of tubal ligation History of breast lump/mass excision H/O: hysterectomy) Allergies: Allergies Allergy/AdvReac Type Severity Reaction Status Date / Time amoxicillin [AMOXICILLIN] Allergy Intermediate rash, Verified 07/06/24 17:11 rash/itching sulfamethoxazole Allergy Intermediate RASH Verified 07/06/24 17:11 [From BACTRIM] trimethoprim [From BACTRIM] Allergy Intermediate RASH Verified 07/06/24 17:11 hydrocodone [Hydrocodone] Allergy Mild ITCH Verified 07/06/24 17:11 ibuprofen [From Motrin] Allergy Mild UPSET Verified 07/06/24 17:11 STOMACH latex [Latex] Allergy Mild ITCH Verified 07/06/24 17:11 Review of Systems Sugical H&P ROS: Negative: Constitution, Cardiovascular and Respiratory and Yes, Specify: Gastrointestinal (constipation) Exam Surgical H&P Exam: Normal: Heart, Normal: Lungs, Normal: Extremities and Normal: Abdomen Plan Diagnosis/Plan: Unchanged I have reviewed the history and physical and performed a pertinent physical examination on my patient. No changes have occurred unless specified. Time Spent With Patient Time: Total time managing care of this patient today ____ minutes.
--- NOTE | 2024-07-11 13:48 | HO.OPN-COLON ---
Colonoscopy Operative Note Operative Note Date of Service: 07/11/24 Narrative: COLONOSCOPY TILL CECUM WITH SNARE POLYPECTOMY AND HEMOCLIP PLACEMENT Pre-op diagnosis: Colon cancer screening, positive Cologuard test. Post-op diagnosis:? Colon polyps, Diverticulosis, hemorrhoids Endoscopist:? Herberth Stokes MD Anesthesia:?MAC Consent: Indications for the procedure and potential complications of bleeding, perforation, reaction to medications and missed diagnosis were discussed with the patient and informed consent was obtained. Instrument: Olympus PCF H 190 L variable stiffness pediatric colonoscope Monitoring: Vital signs and clinical assessment, intermittent blood pressure monitoring, continuous EKG monitoring, Pulse oximetry and Carbon Dioxide monitoring were done throughout the procedure. Please see anesthesia flowsheet. Colon withdrawl time was 24 minutes. Procedure: The patient was placed in the left lateral decubitis position and pre-procedure medications were administered. After a digital rectal examination of the ano-rectum, the video colonoscope was inserted into the rectum and advanced through the colon to the cecum. The colonoscope was slowly withdrawn in a retrograde panoramic fashion and the colon mucosa was carefully examined including a retroflexed view of the rectum. Findings and interventions are described below. Procedure Difficulty: without difficulty Findings: Terminal Ileum: Not evaluated Cecum: Normal Ascending Colon: Two 10 - 12 mm sessile polyps in the distal ascending colon - removed with a hot snare. One of the polypectomy sites was closed with 1 hemoclip. Moderate diverticulosis throughout the entire colon Transverse Colon: Moderate diverticulosis throughout the entire colon Descending Colon: Moderate diverticulosis throughout the entire colon Sigmoid Colon: Two 10 -15 mm sessile polyps - removed with a hot snare. Severe diverticulosis with luminal narrowing Rectum: A 15 to 18 mm sessile polyp at 15 cms - removed with a hot snare Ano-rectum: Moderate internal hemorrhoids Colon preparation: Good after copious irrigation. [place] Bowel Preparation Scale Right colon; 2 Transverse colon: 2 Left colon; 2 (0 = Unprepared colon segment with mucosa not seen due to solid stool that cannot be cleared. 1 = Portion of mucosa of the colon segment seen, but other areas of the colon segment not well seen due to staining, residual stool and/or opaque liquid. 2 = Minor amount of residual staining, small fragments of stool and/or opaque liquid, but mucosa of colon segment seen well. 3 = Entire mucosa of colon segment seen well with no residual staining, small fragments of stool or opaque liquid) Impression and Post Procedure Diagnosis: Colonoscopy Findings: Five medium sized polyps were removed Moderate diverticulosis seen in the entire colon Moderate hemorrhoids on retroflexed exam. Plan: I will send a letter with biopsy results. Repeat Colonoscopy in 2 years if multiple polyps are adenomatous and 10 year if polyps are hyperplastic. Above findings were reviewed with the patient and relevant handouts were given and the discharge area.
[2024-07-11 13:49] VITALS: BP 119/61; PULSE 99; RESP 16; TEMP 36.7; O2SAT 99
[2024-07-11 14:04] VITALS: BP 127/95; PULSE 90; RESP 16; O2SAT 100
[2024-07-11 14:19] VITALS: BP 132/86; PULSE 95; RESP 18; TEMP 36.4; O2SAT 100
== END 2024-07-11 14:47 | disposition home or self-care (01) ==
PROVIDERS: PCP Family Medicine; Visit Provider Internal Medicine Gastroenterology
PROC: 0DJD8ZZ Inspection of Lower Intestinal Tract, Via Natural or Artificial Opening Endoscopic (ICD-10-PCS; CPT 45378; principal; 2024-07-11 12:50)
DX: R19.5 Other fecal abnormalities (principal); R14.0 Abdominal distension (gaseous); D12.2 Benign neoplasm of ascending colon; D12.5 Benign neoplasm of sigmoid colon; D12.8 Benign neoplasm of rectum; K57.30 Diverticulosis of large intestine without perforation or abscess without bleeding; K64.8 Other hemorrhoids; K64.4 Residual hemorrhoidal skin tags; K58.2 Mixed irritable bowel syndrome; K21.9 Gastro-esophageal reflux disease without esophagitis; Z85.3 Personal history of malignant neoplasm of breast; I10 Essential (primary) hypertension; F10.20 Alcohol dependence, uncomplicated; Z79.899 Other long term (current) drug therapy; F41.8 Other specified anxiety disorders; Z88.1 Allergy status to other antibiotic agents; Z88.2 Allergy status to sulfonamides; Z88.5 Allergy status to narcotic agent; Z88.6 Allergy status to analgesic agent; Z91.040 Latex allergy status; Z98.890 Other specified postprocedural states; F17.210 Nicotine dependence, cigarettes, uncomplicated
CPT/HCPCS: 45385; 88305; J2250; J2704

== ENCOUNTER → 2024-07-11 10:05 | Outpatient (BNV) | payer MEDICAID, SELFPAY | PROVIDERS: PCP Family Medicine; Visit Provider Internal Medicine Gastroenterology | DX: Z12.11 Encounter for screening for malignant neoplasm of colon (principal); R19.5 Other fecal abnormalities; D12.2 Benign neoplasm of ascending colon; K57.90 Diverticulosis of intestine, part unspecified, without perforation or abscess without bleeding; D12.5 Benign neoplasm of sigmoid colon; D12.8 Benign neoplasm of rectum; K64.8 Other hemorrhoids | CPT/HCPCS: 45385 ==

== ENCOUNTER 2024-07-24 18:25 | Inpatient (IN) | payer MEDICAID, SELFPAY ==
--- NOTE | ~2024-07-24 | XR_ITS ---
EXAMINATION: XR KNEE, RIGHT CLINICAL INFORMATION: Swelling. Pain. Fever. COMPARISON: None available. TECHNIQUE: Four views of the right knee. FINDINGS: Examination demonstrates moderate tricompartmental osteoarthritis, with joint space narrowing, sclerosis, and osteophyte formation. Postsurgical changes involving the knee, probably related to ACL repair. Small to moderate suprapatellar effusion with probable loose bodies. No acute fracture or dislocation identified. No suspicious lytic or sclerotic bony lesion identified. XR/XR knee RT 4V IMPRESSION: Findings as above. Electronically signed by: Rodrigue Fernandez MD 07/24/2024 08:59 PM EDT
[2024-07-24 18:36] VITALS: BP 150/100; BP 154/97; PULSE 120; PULSE 132; RESP 20; TEMP 37.9; O2SAT 98; O2SAT 99; BMI 27.4
--- NOTE | 2024-07-24 18:40 | ED_ITS ---
HPI - General Adult General Chief complaint: Extremity Injury, Lower Stated complaint: Swelling and pain in right knee Time Seen by Provider: 07/24/24 18:40 History of Present Illness ED Provider: Jayro ROSADO narrative: The patient is a 48-year-old female. She has a history of problems with arthritis. Had some worsening pain in the right knee over the last couple of days. This afternoon around 3 she started to feel chilled and thought she was feverish. The pain got worse. She was unable to walk. Ultimately she called an ambulance and was brought to the hospital. She feels that the knee is hot and she really does not feel she can move it at all. Had a lot of problems with joint pains but she has never had a joint this painful before. The patient has a history of alcoholism. She says she has alcohol intermittently recently but not as heavily as she has in the past. She does not think that she experiences significant withdrawal symptoms when she stops drinking. The eyes any IV drug use. She says that she used cocaine about 6 years ago but she says she took that nasally. Related Data Home Medications ?Medication ?Instructions ?Recorded ?Confirmed folic acid 1 mg tablet 1 tab PO DAILY 09/30/21 06/22/24 omeprazole 20 mg capsule,delayed 1 cap PO DAILY@0630 09/30/21 06/22/24 release thiamine HCl (vitamin B1) 100 mg 1 tab PO DAILY 09/30/21 06/22/24 tablet acetaminophen 500 mg tablet 1 tab PO Q6H PRN fever 06/04/22 06/22/24 cholecalciferol (vitamin D3) 25 1 cap PO DAILY 06/04/22 06/22/24 mcg (1,000 unit) capsule (Vitamin D3) multivitamin-ferrous 1 tab PO DAILY 06/04/22 06/22/24 fumarate-folic acid 18 mg-400 mcg tablet (Certavite-Antioxidant) cetirizine 10 mg tablet 10 mg PO DAILY PRN allergies 04/10/24 06/22/24 Previous Rx's ?Medication ?Instructions ?Recorded ACL defiance brace #1 ea 07/29/21 albuterol sulfate 90 mcg/actuation 2 puff inhalation Q4-6H PRN 09/12/21 aerosol inhaler shortness of breath or wheezing #8.5 grams magnesium oxide 400 mg (241.3 mg 400 mg PO BIDPC 30 days #60 tabs 10/02/21 magnesium) tablet carvedilol 6.25 mg tablet 6.25 mg PO BID #60 tabs 06/24/24 furosemide 40 mg tablet 40 mg PO DAILY #30 tabs 06/24/24 losartan 25 mg tablet 25 mg PO BID #60 tabs 06/24/24 spironolactone 25 mg tablet 25 mg PO DAILY #30 tabs 06/24/24 colchicine 0.6 mg tablet 0.6 mg PO BID #60 tabs 07/06/24 Allergies Allergy/AdvReac Type Severity Reaction Status Date / Time amoxicillin [AMOXICILLIN] Allergy Intermediate rash, Verified 07/24/24 18:38 rash/itching sulfamethoxazole Allergy Intermediate RASH Verified 07/24/24 18:38 [From BACTRIM] trimethoprim [From BACTRIM] Allergy Intermediate RASH Verified 07/24/24 18:38 hydrocodone [Hydrocodone] Allergy Mild ITCH Verified 07/24/24 18:38 ibuprofen [From Motrin] Allergy Mild UPSET Verified 07/24/24 18:38 STOMACH latex [Latex] Allergy Mild ITCH Verified 07/24/24 18:38 Review of Systems 2 Review of Systems: Yes all other systems are reviewed and are negative PMFSH Past Medical History Medical History Depression Anxiety and depression Lower back pain History of COVID-19 Uncontrolled hypertension Panic attack H/O ETOH abuse Anxiety History of low potassium Breast cancer Hypertension Surgical History History of carpal tunnel release Hx of tubal ligation History of breast lump/mass excision H/O: hysterectomy Family History Family History Mother Heart disease Alzheimers disease Social History Social History Household Members: None Housing: Apartment Are you a primary manager respiratory care to a significant other at home: No Do you presently have visiting nurse or other home services: No Alcohol intake: former Comment: 1:1 SI Patient Tobacco Use Status: Current everyday Tobacco user Tobacco use type: Cigarette Cigarette Packs Per Day: 1 Cigarettes Per Day: 2 Years Smoked: 38YRS Smoked in Last 30 Days: Yes e-Cigarette/Vaping Use: Never Used Second Hand Smoke Exposure: Yes Use of substances other than those prescribed or required for medical reasons: No Advance Directives: Yes Advance Directives on File: Yes Advance Directives Date on File: 02/11/22 Do you have a plan to hurt others: No Plan Patient : No service: No Current occupational status: disabled Physical Exam ED Vital Signs: Vital Signs - 24 hr 07/24/24 18:36 07/24/24 18:42 07/24/24 21:09 Temperature 100.3 F 100.3 F Pulse Rate 120 H 120 H Respiratory Rate 20 20 18 Blood Pressure 154/97 H 154/97 H Pulse Oximetry 98 98 Oxygen Delivery Method Room Air Room Air 07/24/24 22:41 07/25/24 00:58 Temperature 100.1 F Pulse Rate 118 H Respiratory Rate 12 12 Blood Pressure 130/80 Pulse Oximetry 95 Oxygen Delivery Method Room Air BMI result Body Mass Index 27.4 Const Other: The patient is a 48-year-old woman who was awake and alert and looked extremely uncomfortable. She was crying in pain. HENMT Other: Face is symmetrical, mucous membranes moist. Eyes Other: Pupils are round equal, conjunctivae are clear Neck Other: No adenopathy, moving her neck easily Resp Effort & Inspection: normal respiratory effort Auscultation: clear to auscultation bilaterally Cardio Rate: regular rate Rhythm: regular rhythm Heart sounds: S1 normal heart sound present and S2 normal heart sound present GI Other: Abdomen is soft and nontender Skin Other: The skin of the right knee is visibly swollen in a manner consistent with a joint effusion. No erythema. Skin is intact. Neuro Other: The patient is awake and alert. She has a normal mental status although she seems very distracted by her discomfort. Cranial nerves seem intact. She is able to move her arms and her left leg normally. She has severe pain with any attempt at moving the right knee. However she seems to have intact sensation and motor function of the foot distal to the knee Extrem Other: Right knee is swollen and warm. The swelling around the patella feels fluctuant in a manner consistent with a joint effusion. The patient not really move the knee joint through any range of motion at all. Medications Administered Discontinued Medications Generic Name Dose Route Start Last Admin Trade Name Freq PRN Reason Stop Dose Admin Acetaminophen 650 mg 07/25/24 01:00 07/25/24 01:05 Acetaminophen 325 Mg Tablet PO 07/25/24 01:01 650 mg ONCE ONE Administration Hydromorphone HCl 1 mg 07/24/24 19:29 07/24/24 19:32 Hydromorphone Hcl 1 Mg/Ml Syringe IVPUSH 07/24/24 19:30 1 mg ONCE ONE Administration Protocol Hydromorphone HCl 1 mg 07/24/24 20:32 07/24/24 21:09 Hydromorphone Hcl 1 Mg/Ml Syringe IVPUSH 07/24/24 20:33 1 mg ONCE ONE Administration Protocol Hydromorphone HCl 1 mg 07/25/24 00:52 07/25/24 00:58 Hydromorphone Hcl 1 Mg/Ml Syringe IVPUSH 07/25/24 00:53 1 mg ONCE ONE Administration Protocol Magnesium Sulfate 2 gm in 50 mls @ 150 mls/hr 07/24/24 23:10 07/25/24 00:05 Magnesium Sulfate/H2o IV 07/24/24 23:29 Infused ONCE ONE Infusion Ceftriaxone Sodium 2 gm/ 50 mls @ 100 mls/hr 07/24/24 23:32 07/25/24 00:40 Sodium Chloride IV 07/25/24 00:01 Infused ONCE ONE Infusion Vancomycin HCl 2,000 mg in 500 mls @ 250 mls/hr 07/24/24 23:33 07/25/24 00:50 Vancomycin/Ns IV 07/25/24 01:32 250 mls/hr ONCE ONE Administration Ketorolac Tromethamine 10 mg 07/24/24 19:41 07/24/24 19:46 Ketorolac Tromethamine 15 Mg/Ml Vial IVPUSH 07/24/24 19:42 10 mg ONCE ONE Administration Lidocaine HCl 5 ml 07/24/24 20:32 07/24/24 22:34 Lidocaine Hcl 1 % 20 Ml Vial INFILTRATI 07/24/24 20:33 5 ml ONCE ONE Administration Lorazepam 1 mg 07/24/24 20:41 07/24/24 21:05 Lorazepam 2 Mg/Ml Vial IVPUSH 07/24/24 20:42 1 mg ONCE ONE Administration Ondansetron HCl 4 mg 07/24/24 18:54 07/24/24 19:32 Ondansetron Hcl 4 Mg/2 Ml Vial IVPUSH 07/24/24 18:55 4 mg ONCE ONE Administration Procedures Joint Aspiration/Injection Joint Asp./Inject. 1: Time Out Performed: Yes Side of body: right Joint Aspirated: knee Ultrasound Guidance: Yes Skin Prep: Chlorhexidine Local Anesthetic: lidocaine 1% Amount of anesthesia used (mL): 4 Needle Size Used: 18G Fluid Obtained: purulent Total fluid obtained (mL): 30 Patient Tolerated Procedure: well and no complications Complications: none Additional Comments: The initial aspirate looked purulent without blood. About retirement through the procedure there seemed to be blood tinging of the fluid. Medical Decision Making Medical Decision Making [facility] Narrative: The patient is a 48-year-old woman with a history of osteoarthritis of the knees. She presents with worsening right knee pain over a couple of days. She developed a sense of chills and worsening pain this afternoon and had to call an ambulance to come to the hospital because she was in so much pain. Clinically she has an obvious joint effusion and can not really move the knee at all. This was all concerning for the possibility of septic arthritis although I do not have a very good reason for why the the patient should be developing septic arthritis on this occasion. I do not hear a cardiac murmur. She denies IV drug use. She has an underlying history of osteoarthritis but has not had any treatment recently. The patient's temperature in the emergency room [place] 100.3[place] [address]. Her CRP and ESR are both elevated. It was clear that arthrocentesis was indicated. The patient was arthrocentesis and this was performed under on the lateral aspect of the right knee in an area maximum fluctuance. Fluid has been visualized preprocedure really by ultrasound. 30 mL of purulent fluid was aspirated. About retirement through the procedure the developed a blood-tinge that was not present initially. I communicated with the physician marketing assistant retail division covering for the orthopedic service. We agreed that the patient should be covered with antibiotics. The patient was given vancomycin and ceftriaxone. The patient will be admitted to the hospitalist service with the plan for orthopedic consult in the morning. Lab Data 07/24/24 19:13 07/24/24 19:14 Labs: Lab Results 07/24/24 07/24/24 07/24/24 Range/Units 19:13 19:14 19:17 WBC 15.1 H (4.8-10.8) X10*3/uL RBC 3.42 L (4.20-5.50) X10*6/uL Hgb 10.4 L (12.0-16.0) g/dl Hct 29.8 L (37.0-47.0) % MCV 87.1 (80.0-98.0) fL MCH 30.4 (27.0-33.0) pg MCHC 34.9 (31.0-35.0) g/dl RDW 13.7 (11.0-16.0) % Plt Count 319 (160-400) X10*3/uL MPV 9.6 (9.4-12.3) fL Immature Gran % (Auto) 0.3 (0.0-0.4) % Neut % (Auto) 76.6 H (45-73) % Lymph % (Auto) 16.0 L (20-40) % [place] % (Auto) 6.1 (2-11) % Eos % (Auto) 0.6 (0-4) % Baso % (Auto) 0.4 (0-2) % Lymph # (Auto) 2.4 (1.2-4.9) X10*3/uL [place] # (Auto) 0.9 (0.1-1.2) X10*3/uL Eos # (Auto) 0.1 (0.0-0.4) X10*3/uL Baso # (Auto) 0.1 (0.0-0.2) X10*3/uL Abs Immat Gran (auto) 0.05 H (0.00-0.03) X10*3/uL Absolute Neuts (auto) 11.5 H (2.0-8.3) x10*3/uL Absolute Nucleated RBC 0.000 (0.0-0.012) X10*3/uL Nucleated RBC % (auto) 0.0 (0.0-0.2) /100WBC ESR 78 H (0-20) MM/HR Sodium 140 (135-145) mmol/L Potassium 3.4 D (3.3-5.1) mmol/L Chloride 105 (96-108) mmol/L Carbon Dioxide 22 (22-29) mmol/L Anion Gap 16 (12-20) BUN 16 (9-16) mg/dL Creatinine 0.92 (0.5-1.4) mg/dL Estim Creat Clear Calc 79.3 Estimated GFR > 60 Random Glucose 127 H (60-115) mg/dL Lactic Acid 1.7 (0.5-2.0) mmol/L Calcium 9.5 D (8.4-10.2) mg/dL Magnesium 1.2 L* (1.6-2.6) mg/dL Total Bilirubin 0.5 (0.0-1.0) mg/dL Direct Bilirubin 0.2 (0.0-0.5) mg/dL AST 9 (5-31) U/L ALT 12 (0-31) U/L Alkaline Phosphatase 87 (39-117) U/L C-Reactive Protein 12.82 H (< or = 0.50) mg/dL Total Protein 7.3 (6.5-8.0) g/dL Albumin 4.0 (3.5-5.0) g/dL Synovial Source Synovial WBC X10*3/uL Synovial RBC X10*6/uL Synovial Neutrophils % Synovial Lymphocytes % Synovial Monocytes % Ethyl Alcohol < 10 mg/dL Influenza Type A (PCR) NEGATIVE (Negative) Influenza Type B (PCR) NEGATIVE (Negative) RSV RNA Qual (PCR) NEGATIVE (Negative) SARS-CoV-2 RNA (RT-PCR) NEGATIVE (Negative) 07/24/24 Range/Units 21:48 WBC (4.8-10.8) X10*3/uL RBC (4.20-5.50) X10*6/uL Hgb (12.0-16.0) g/dl Hct (37.0-47.0) % MCV (80.0-98.0) fL MCH (27.0-33.0) pg MCHC (31.0-35.0) g/dl RDW (11.0-16.0) % Plt Count (160-400) X10*3/uL MPV (9.4-12.3) fL Immature Gran % (Auto) (0.0-0.4) % Neut % (Auto) (45-73) % Lymph % (Auto) (20-40) % [place] % (Auto) (2-11) % Eos % (Auto) (0-4) % Baso % (Auto) (0-2) % Lymph # (Auto) (1.2-4.9) X10*3/uL [place] # (Auto) (0.1-1.2) X10*3/uL Eos # (Auto) (0.0-0.4) X10*3/uL Baso # (Auto) (0.0-0.2) X10*3/uL Abs Immat Gran (auto) (0.00-0.03) X10*3/uL Absolute Neuts (auto) (2.0-8.3) x10*3/uL Absolute Nucleated RBC (0.0-0.012) X10*3/uL Nucleated RBC % (auto) (0.0-0.2) /100WBC ESR (0-20) MM/HR Sodium (135-145) mmol/L Potassium (3.3-5.1) mmol/L Chloride (96-108) mmol/L Carbon Dioxide (22-29) mmol/L Anion Gap (12-20) BUN (9-16) mg/dL Creatinine (0.5-1.4) mg/dL Estim Creat Clear Calc Estimated GFR Random Glucose (60-115) mg/dL Lactic Acid (0.5-2.0) mmol/L Calcium (8.4-10.2) mg/dL Magnesium (1.6-2.6) mg/dL Total Bilirubin (0.0-1.0) mg/dL Direct Bilirubin (0.0-0.5) mg/dL AST (5-31) U/L ALT (0-31) U/L Alkaline Phosphatase (39-117) U/L C-Reactive Protein (< or = 0.50) mg/dL Total Protein (6.5-8.0) g/dL Albumin (3.5-5.0) g/dL Synovial Source right knee Synovial WBC 68.040 X10*3/uL Synovial RBC 0.003 X10*6/uL Synovial Neutrophils 88 % Synovial Lymphocytes 11 % Synovial Monocytes 1 % Ethyl Alcohol mg/dL Influenza Type A (PCR) (Negative) Influenza Type B (PCR) (Negative) RSV RNA Qual (PCR) (Negative) SARS-CoV-2 RNA (RT-PCR) (Negative) Discharge Plan Discharge Patient Disposition: Admitted As Inpatient Prescriptions: No Action (DME) ACL defiance brace See Rx Instructions .ROUTE .MEDSUPPLY Qty: 1 0RF Rx Instructions: n/a colchicine 0.6 mg tablet 0.6 mg PO BID Qty: 60 1RF albuterol sulfate 90 mcg/actuation HFA aerosol inhaler 2 puff inhalation Q4-6H PRN (Reason: shortness of breath or wheezing) Qty: 8.5 0RF thiamine HCl (vitamin B1) 100 mg tablet 1 tab PO DAILY omeprazole 20 mg capsule,delayed release(DR/EC) 1 cap PO DAILY@0630 folic acid 1 mg tablet 1 tab PO DAILY magnesium oxide 400 mg (241.3 mg magnesium) Tablet 400 mg PO BIDPC 30 Days Qty: 60 0RF cholecalciferol (vitamin D3) [Vitamin D3] 25 mcg (1,000 unit) capsule 1 cap PO DAILY Certavite-Antioxidant 18-400 mg-mcg tablet 1 tab PO DAILY acetaminophen 500 mg tablet 1 tab PO Q6H PRN (Reason: fever) furosemide 40 mg Tablet 40 mg PO DAILY Qty: 30 0RF Protocol: Hold for SBP< HOLD for SBP < : 90 carvedilol 6.25 mg Tablet 6.25 mg PO BID Qty: 60 0RF Protocol: Hold for SBP/HR < HOLD for SBP < : 90 HOLD for HR < : 60 spironolactone 25 mg Tablet 25 mg PO DAILY Qty: 30 0RF Protocol: Hold for SBP< HOLD for SBP < : 90 losartan 25 mg Tablet 25 mg PO BID Qty: 60 0RF Protocol: Hold for SBP< HOLD for SBP < : 90 cetirizine 10 mg tablet 10 mg PO DAILY PRN (Reason: allergies) Print Language: Wolof
[2024-07-24 18:42] VITALS: BP 154/97; PULSE 120; RESP 20; TEMP 37.9; O2SAT 98
--- NOTE | 2024-07-24 18:48 | PC.NURSE ---
Pt comes to ED via EMS from home for severe 10/10 R knee pain and swelling. Reports Hx ACL tear many years ago with on going discomfort however never to this extent. BP stable, mild tachycardia. Fever 100.3 Pt tearful and has difficulty with movement and pain with rest. Provider at bedside.
[2024-07-24 19:19] LABS: MANUAL DIFF FLAG NO
[2024-07-24 19:21] LABS: Basophils Absolute Auto 0.1 X10*3/uL (0.0-0.2); Basophils Percent Auto 0.4 % (0-2); Eosinophils Absolute Auto 0.1 X10*3/uL (0.0-0.4); Eosinophils Percent Auto 0.6 % (0-4); Hematocrit 29.8 % (37.0-47.0); Hemoglobin 10.4 g/dl (12.0-16.0); Imm Gran Abs Auto 0.05 X10*3/uL (0.00-0.03); Imm Gran Pct Auto 0.3 % (0.0-0.4); Lymphocytes Absolute Auto 2.4 X10*3/uL (1.2-4.9); Mean Corpuscular HGB Conc 34.9 g/dl (31.0-35.0); Mean Corpuscular Hemoglobin 30.4 pg (27.0-33.0); Mean Corpuscular Volume 87.1 fL (80.0-98.0); Mean Platelet Volume 9.6 fL (9.4-12.3); Monocytes Absolute Auto 0.9 X10*3/uL (0.1-1.2); Monocytes Percent Auto 6.1 % (2-11); Neutrophils Absolute Auto 11.5 x10*3/uL (2.0-8.3); Neutrophils Percent Auto 76.6 % (45-73); Platelet Count 319 X10*3/uL (160-400); Red Blood Count 3.42 X10*6/uL (4.20-5.50); Red Cell Distribution Width 13.7 % (11.0-16.0); White Blood Count 15.1 X10*3/uL (4.8-10.8)
[2024-07-24] MEDS: ondansetron HCL 4 MG/2 ML VIAL IVPUSH (19:32)
[2024-07-24] MEDS: HYDROmorphone HCl 1 MG/ML SYRINGE IVPUSH ×2 (19:32→21:09)
[2024-07-24 19:33] LABS: Lactic Acid 1.7 mmol/L (0.5-2.0)
--- NOTE | 2024-07-24 19:36 | PC.NURSE ---
Medicated per MAR for 10/10 pain to right knee per MD request.
[2024-07-24 19:45] LABS: Alanine Aminotransferase 12 U/L (0-31); Alkaline Phosphatase 87 U/L (39-117); Anion Gap 16 (12-20); Aspartate Amino Transferase 9 U/L (5-31); Bilirubin Direct 0.2 mg/dL (0.0-0.5); Bilirubin Total 0.5 mg/dL (0.0-1.0); Blood Urea Nitrogen 16 mg/dL (9-16); C Reactive Protein 12.82 mg/dL (< or = 0.50); Calcium 9.5 mg/dL (8.4-10.2); Carbon Dioxide 22 mmol/L (22-29); Chloride 105 mmol/L (96-108); Creatinine Clr Calc Pharmacy 79.3; Estimated Glomerular Filt Rate > 60; Ethanol < 10 mg/dL; Glucose Random 127 mg/dL (60-115); Magnesium 1.2 mg/dL (1.6-2.6); Potassium 3.4 mmol/L (3.3-5.1); Sodium 140 mmol/L (135-145); Total Protein 7.3 g/dL (6.5-8.0)
[2024-07-24] MEDS: Ketorolac Tromethamine 15 MG/ML VIAL 10 MG IVPUSH (19:46)
--- NOTE | 2024-07-24 20:04 | PC.NURSE ---
Patient continues to c/o 9/10 pain in right knee with inability to move. Dr. Conteh notified. patient medicated with Toradol 10 mg IV, effect pending.
[2024-07-24 20:15] LABS: Erythrocyte Sedimentation Rate 78 MM/HR (0-20)
[2024-07-24 20:16] LABS: Influenza A PCR NEGATIVE (Negative); Influenza B PCR NEGATIVE (Negative); Resp Syncy Virus RNA Qual PCR NEGATIVE (Negative); SARS COV2 PCR INHOUSE NEGATIVE (Negative)
[2024-07-24] MEDS: LORazepam 2 MG/ML VIAL 1 MG IVPUSH (21:05)
[2024-07-24 21:09] VITALS: RESP 18
--- NOTE | 2024-07-24 22:00 | PC.NURSE ---
Dr. Conteh at bedside, right knee joint was tapped, specimen sent to lab for processing.
[2024-07-24] MEDS: Lidocaine HCl 1 % 20 ML VIAL 5 ML INFILTRATI (22:34)
[2024-07-24 22:41] VITALS: BP 130/80; PULSE 118; RESP 12; TEMP 37.8; O2SAT 95
--- NOTE | 2024-07-24 23:01 | PC.NURSE ---
Patient is alert and oriented x3, [place] [id number], Temp 100.[address] Conteh notified, no new orders at this time.
[2024-07-24 23:27] LABS: Source Synovial Fluid right knee
[2024-07-24] MEDS: Magnesium Sulfate/H2O 2 GM/50 ML PIGGYBACK IV (23:44)
[2024-07-25] VITALS (8 sets, daily range): BP systolic 138–168; BP diastolic 83–97; PULSE 105–126; RESP 12–20; TEMP 37–37.6; O2SAT 96–98; BMI 27.4
[2024-07-25] MEDS: cefTRIAXone sodium 2 GM in 0.9 % Sodium Chloride 50 ML IV ×2 (00:08→21:25)
[2024-07-25 00:30] LABS: MN% 8.9 %; PMN% 91.1 %; RBC Synovial Fluid 0.003 X10*6/uL
[2024-07-25 00:39] LABS: BF Shift QC OK YES; Man Diluent Bkgrd OK YES
[2024-07-25 00:41] LABS: Lymphocytes Synovial Fluid 11 %; Monocytes Synovial Fluid 1 %; Neutrophils Synovial Fluid 88 %
[2024-07-25] MEDS: vancomycin/NS 2,000 MG/500 ML PLAST..BAG 250 MG IV (00:50)
[2024-07-25] MEDS: HYDROmorphone HCl 1 MG/ML SYRINGE IVPUSH (00:58)
[2024-07-25] MEDS: Acetaminophen 325 MG TABLET 650 MG PO (01:05)
--- NOTE | 2024-07-25 01:05 | PC.NURSE ---
Patient medicated per DEC, repositioned in bed, right leg propped on pillow, call cavanaugh placed in patient's reach.
[2024-07-25] MEDS: Lactated Ringers 1,000 ML 999 ML IV ×2 (01:53→03:26)
[2024-07-25 02:15] LABS: Appearance Urine Clear; Color Urine Dark Yellow; Glucose Urine UA Negative (Negative); Leukocyte Esterase Urine Negative (Negative); Nitrite Urine Negative (Negative); PH 5.5 (5.0-9.0); Specific Gravity - Urine >= 1.030 (1.005-1.025); Urine Blood Negative (Negative); Urine Ketones Trace mg/dL (Negative); Urine Protein Trace mg/dL (Neg-Trace)
[2024-07-25 02:17] LABS: UPreg QC Valid YES; Urine Pregnancy NEGATIVE (NEGATIVE)
--- NOTE | 2024-07-25 03:09 | P.HPHOSP_ITS ---
History of Present Illness Date of Service: 07/25/24 Chief Complaint: Knee pain This is a 48-year-old female with pertinent history of alcohol use disorder, congestive heart failure with reduced ejection fraction, hypertension, gastroesophageal reflux disease, osteoarthritis, breast cancer who presents to the emergency department for evaluation of knee pain. Patient states symptoms started 2 days prior to presentation. She has been having right knee pain which has been progressive, nonradiating and without any relieving factors. On the day of presentation, patient could not bend her right knee and was unable to ambulate. Also noticed that the knee is warm to touch. Has been having chills but no documented temperature. No history of similar symptoms in the right knee in the past. States she does have arthritis but it has never been this severe. No trauma to the right knee. Her last alcohol drink was 5 days prior to presentation. No concern of alcohol withdrawal at the time of presentation. No chest discomfort, palpitations, shortness of breath, abdominal pain, changes in urinary or bowel habits. In the emergency department, patient was found to be septic and right knee joint was tapped with 68,000 synovial WBC with 88% neutrophils. Orthopedic surgery was consulted who requested admission with IV antibiotics and to keep patient NPO. Review of Systems 2 Cardiovascular: Cardiovascular: Reports no additional cardiovascular complaints Respiratory: Respiratory: Reports no additional respiratory complaints Gastrointestinal: Gastrointestinal: Reports no additional gastrointestinal complaints Genitourinary: Genitourinary: Reports no additional female genitourinary complaints Musculoskeletal: Musculoskeletal: Reports arthralgias and Reports joint swelling [facility] Medical History Depression Anxiety and depression Lower back pain History of COVID-19 Uncontrolled hypertension Panic attack H/O ETOH abuse Anxiety History of low potassium Breast cancer Hypertension Family History Mother Heart disease Alzheimers disease Surgical History History of carpal tunnel release Hx of tubal ligation History of breast lump/mass excision H/O: hysterectomy Social History Household Members: None Housing: Apartment Are you a primary sub acute care nurse to a significant other at home: No Do you presently have visiting nurse or other home services: No Alcohol intake: former Comment: 1:1 SI Patient Tobacco Use Status: Current everyday Tobacco user Tobacco use type: Cigarette Cigarette Packs Per Day: 1 Cigarettes Per Day: 2 Years Smoked: 38YRS Smoked in Last 30 Days: Yes e-Cigarette/Vaping Use: Never Used Second Hand Smoke Exposure: Yes Use of substances other than those prescribed or required for medical reasons: No Advance Directives: Yes Advance Directives on File: Yes Advance Directives Date on File: 02/11/22 Do you have a plan to hurt others: No Plan Patient : No service: No Current occupational status: disabled Meds Allergies Allergy/AdvReac Type Severity Reaction Status Date / Time amoxicillin [AMOXICILLIN] Allergy Intermediate rash, Verified 07/24/24 18:38 rash/itching sulfamethoxazole Allergy Intermediate RASH Verified 07/24/24 18:38 [From BACTRIM] trimethoprim [From BACTRIM] Allergy Intermediate RASH Verified 07/24/24 18:38 hydrocodone [Hydrocodone] Allergy Mild ITCH Verified 07/24/24 18:38 ibuprofen [From Motrin] Allergy Mild UPSET Verified 07/24/24 18:38 STOMACH latex [Latex] Allergy Mild ITCH Verified 07/24/24 18:38 Active Medications: Current Medications Pharmacy Consult (Consult Rx Vancomycin Dosing) 1 each MISCELLANE DAILY PRN PRN Reason: Consult order Home Medications ?Medication ?Instructions ?Recorded ?Confirmed ?Last Taken ?Type folic acid 1 mg tablet 1 tab PO DAILY 09/30/21 06/22/24 06/22/24 History omeprazole 20 mg capsule,delayed 1 cap PO DAILY@0630 09/30/21 06/22/24 07/11/24 History release thiamine HCl (vitamin B1) 100 mg 1 tab PO DAILY 09/30/21 06/22/24 06/22/24 History tablet acetaminophen 500 mg tablet 1 tab PO Q6H PRN fever 06/04/22 06/22/24 06/22/24 History cholecalciferol (vitamin D3) 25 1 cap PO DAILY 06/04/22 06/22/24 06/22/24 History mcg (1,000 unit) capsule (Vitamin D3) multivitamin-ferrous 1 tab PO DAILY 06/04/22 06/22/24 06/22/24 History fumarate-folic acid 18 mg-400 mcg tablet (Certavite-Antioxidant) cetirizine 10 mg tablet 10 mg PO DAILY PRN allergies 04/10/24 06/22/24 06/22/24 History Physical Exam 2 Vital Signs and Narrative: Vital Signs: Last Vital Signs Temp 100.1 F 07/24/24 22:41 Pulse 118 H 07/24/24 22:41 Resp 12 07/25/24 00:58 BP 130/80 07/24/24 22:41 Pulse Ox 95 07/24/24 22:41 O2 Del Method Room Air 07/24/24 22:41 BMI result Body Mass Index 27.4 Middle-aged female lying in bed in no distress Neck supple, no JVD Regular rate and rhythm, S1-S2 heard Regular breath sounds bilaterally, no wheezing or crackles appreciated Abdomen soft nontender, no guarding, no rigidity Patient is awake, alert and oriented to self, place, time and person ; no focal motor deficit Psych: Normal mood Right knee joint warmth and swelling present, limited range of motion due to pain Results Labs 07/24/24 19:13 07/24/24 19:14 Labs: Laboratory Results - last 24 hr 07/24/24 07/24/24 07/24/24 19:13 19:14 19:17 MCV 87.1 MCH 30.4 MCHC 34.9 RDW 13.7 Plt Count 319 MPV 9.6 Immature Gran % (Auto) 0.3 Neut % (Auto) 76.6 H Lymph % (Auto) 16.0 L [place] % (Auto) 6.1 Eos % (Auto) 0.6 Baso % (Auto) 0.4 Lymph # (Auto) 2.4 [place] # (Auto) 0.9 Eos # (Auto) 0.1 Baso # (Auto) 0.1 Abs Immat Gran (auto) 0.05 H Absolute Neuts (auto) 11.5 H Absolute Nucleated RBC 0.000 Nucleated RBC % (auto) 0.0 ESR 78 H Anion Gap 16 Estim Creat Clear Calc 79.3 Estimated GFR > 60 Random Glucose 127 H Lactic Acid 1.7 Calcium 9.5 D Magnesium 1.2 L* Total Bilirubin 0.5 Direct Bilirubin 0.2 AST 9 ALT 12 Alkaline Phosphatase 87 C-Reactive Protein 12.82 H Total Protein 7.3 Albumin 4.0 Urine Color Urine Appearance Urine pH Ur Specific [place] Urine Protein Urine Glucose (UA) Urine Ketones Urine Blood Urine Nitrite Ur Leukocyte Esterase Urine Test Synovial Source Synovial WBC Synovial RBC Synovial Neutrophils Synovial Lymphocytes Synovial Monocytes Ethyl Alcohol < 10 Influenza Type A (PCR) NEGATIVE Influenza Type B (PCR) NEGATIVE RSV RNA Qual (PCR) NEGATIVE SARS-CoV-2 RNA (RT-PCR) NEGATIVE 07/24/24 07/25/24 21:48 02:05 MCV MCH MCHC RDW Plt Count MPV Immature Gran % (Auto) Neut % (Auto) Lymph % (Auto) [place] % (Auto) Eos % (Auto) Baso % (Auto) Lymph # (Auto) [place] # (Auto) Eos # (Auto) Baso # (Auto) Abs Immat Gran (auto) Absolute Neuts (auto) Absolute Nucleated RBC Nucleated RBC % (auto) ESR Anion Gap Estim Creat Clear Calc Estimated GFR Random Glucose Lactic Acid Calcium Magnesium Total Bilirubin Direct Bilirubin AST ALT Alkaline Phosphatase C-Reactive Protein Total Protein Albumin Urine Color Dark Yellow Urine Appearance Clear Urine pH 5.5 Ur Specific [place] >= 1.030 H Urine Protein Trace Urine Glucose (UA) Negative Urine Ketones Trace Urine Blood Negative Urine Nitrite Negative Ur Leukocyte Esterase Negative Urine Test NEGATIVE Synovial Source right knee Synovial WBC 68.040 Synovial RBC 0.003 Synovial Neutrophils 88 Synovial Lymphocytes 11 Synovial Monocytes 1 Ethyl Alcohol Influenza Type A (PCR) Influenza Type B (PCR) RSV RNA Qual (PCR) SARS-CoV-2 RNA (RT-PCR) Imaging Radiologist's Impressions: Impressions Knee X-Ray 07/24/24 18:53 IMPRESSION: Findings as above. Electronically signed by: Rodrigue Fernandez MD 07/24/2024 08:59 PM EDT Assessment and Plan (1) Septic arthritis of knee, right: Status: Acute Plan This is a 48-year-old female with pertinent history of alcohol use disorder, congestive heart failure with reduced ejection fraction, hypertension, gastroesophageal reflux disease, osteoarthritis, breast cancer who presents to the emergency department for evaluation of knee pain. #. Sepsis due to right knee septic arthritis: Resuscitated with IV crystalloids. Lactic acid and blood culture obtained. Synovial WBC: 68,000 with 88% neutrophils. Initiated empiric IV ceftriaxone and vancomycin. Synovial fluid culture pending. Consulted Orthopedic surgery, appreciate assistance #. Alcohol use disorder: Counseled regarding cessation. No concern for withdrawal at the time of admission. On thiamine and folic acid #. Hypomagnesemia due to alcohol use: Repleted #. Congestive heart failure with reduced EF: No decompensation during admission. Continue beta-lisa, losartan and furosemide #. Hypertension: Continue home antihypertensives #. Gastroesophageal reflux disease. On PPI Med rec pending DVT prophylaxis: Mechanical Full code Admit as inpatient and will require two night minimum hospital stay for treatment with IV antibiotics (as above), which is not possible in a lesser acute setting. Specialist consult pending Quality Stroke Does the patient have a stroke diagnosis?: No VTE Prior VTE?: No VTE Risk Level:: Medical - moderate - high VTE Device Contraindication: N/A - Device Ordered VTE Drug Contraindication: Treatment Not Indicated
[2024-07-25] MEDS: HYDROmorphone HCl 0.5 MG/0.5 ML SYRINGE IVPUSH ×2 (04:39→08:28)
--- NOTE | 2024-07-25 05:30 | PC.NURSE ---
Purewick applied to promote comfort, call cavanaugh in patient's reach.
[2024-07-25] MEDS: Morphine Sulfate 4 MG/ML CARTRIDGE IVPUSH (06:31)
[2024-07-25] MEDS: Ketorolac Tromethamine 15 MG/ML VIAL IVPUSH ×3 (09:09→21:31)
[2024-07-25] MEDS: methylPREDNISolone Sod Succ 125 MG/2 ML VIAL 60 MG IVPUSH ×2 (09:11→21:27)
[2024-07-25 09:34] LABS: MANUAL DIFF FLAG NO
[2024-07-25] MEDS: Omeprazole 20 MG CAPSULE.DR PO ×2 (09:42→16:38)
[2024-07-25 09:46] LABS: Basophils Absolute Auto 0.1 X10*3/uL (0.0-0.2); Basophils Percent Auto 0.4 % (0-2); Eosinophils Absolute Auto 0.1 X10*3/uL (0.0-0.4); Eosinophils Percent Auto 0.4 % (0-4); Hematocrit 27.9 % (37.0-47.0); Hemoglobin 9.3 g/dl (12.0-16.0); Imm Gran Abs Auto 0.08 X10*3/uL (0.00-0.03); Imm Gran Pct Auto 0.6 % (0.0-0.4); Lymphocytes Percent Auto 14.2 % (20-40); Mean Corpuscular HGB Conc 33.3 g/dl (31.0-35.0); Mean Corpuscular Hemoglobin 29.5 pg (27.0-33.0); Mean Corpuscular Volume 88.6 fL (80.0-98.0); Monocytes Absolute Auto 1.2 X10*3/uL (0.1-1.2); Monocytes Percent Auto 8.8 % (2-11); Neutrophils Absolute Auto 10.7 x10*3/uL (2.0-8.3); Neutrophils Percent Auto 75.6 % (45-73); Platelet Count 272 X10*3/uL (160-400); Red Blood Count 3.15 X10*6/uL (4.20-5.50); White Blood Count 14.1 X10*3/uL (4.8-10.8)
[2024-07-25 09:51] LABS: Anion Gap 12 (12-20); Blood Urea Nitrogen 11 mg/dL (9-16); Calcium 9.3 mg/dL (8.4-10.2); Carbon Dioxide 24 mmol/L (22-29); Chloride 107 mmol/L (96-108); Creatinine Clr Calc Pharmacy 91.2; Estimated Glomerular Filt Rate > 60; Glucose Random 142 mg/dL (60-115); Magnesium 1.5 mg/dL (1.6-2.6); Potassium 3.3 mmol/L (3.3-5.1); Sodium 140 mmol/L (135-145)
--- NOTE | 2024-07-25 10:05 | PHA.MEDREC ---
Pharmacy Consult ? Medication Reconciliation Pharmacy has completed the medication reconciliation, spoke to patient at bedside. Pt knew most of her medications, was unsure about a couple of them. Said she has been taking allopurinol but is supposed to be taking it, also said she was not on colchicine but has recent claims for it, and was on her medbox lsit as well. All other meds taken as reflected on the med rec.
--- NOTE | 2024-07-25 11:04 | PM.EVENT ---
Event Note Date of Service: 07/25/24 Event Note: Patient was seen and evaluated In significant pain in her Right knee The patient stopped her Gout medications almost 1 month ago Fluids analysis showing URate crystals DC IV Abx Start IV Steroids PO Colchicine bid (reports GI symptoms) Hold Allopurinol Toradol as needed for pain CIWA protocol; Binge drinking last week on hard liquor Time Spent With Patient Time: Total time managing care of this patient today ____ minutes.
--- NOTE | 2024-07-25 11:12 | MHC.CM.PN ---
CM MET WITH PT AT BEDSIDE. PT LIVES ALONE. 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 PT IS INDEPENDENT WITH MOBILITY BUT HAS WALKER/SHOWER CHAIR AND COMMODE THAT SHE USES PRN. + HCP ON FILE AND VERIFIED. PCP DR. DAUGHERTY AT [facility]. 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 PT WILL NEED C SHUTTLE TRANSPORT. CM WILL CONTINUE TO FOLLOW FOR ANY CHANGE TO DC PLAN/NEEDS.
[2024-07-25] MEDS: Colchicine 0.6 MG TABLET 1.2 MG PO (11:54)
--- NOTE | 2024-07-25 12:55 | P.EN_ITS ---
Event Note Date of Service: 07/25/24 Event Note: Patient is a 48-year-old female who presents to the hospital for acute onset of severe right knee pain Patient reports this pain began approximately 2-3 days ago, and has become excruciating Aspiration was drawn, revealing elevated white blood cell count and 2+ mon osodium urate crystals Patient appears to have acute gout flare After discussion with Dr. Gates, no acute orthopedic intervention is indicated at this time Continue with all recommendations per Medicine Patient may follow-up as needed with any acute concerns Time Spent With Patient Time: Total time managing care of this patient today ____ minutes.
[2024-07-25] MEDS: 0.9 % Sodium Chloride Flush 3 ML SYRINGE IVFLUSH (16:22)
[2024-07-25] MEDS: Magnesium Oxide 400 MG TABLET PO (16:37)
[2024-07-25] MEDS: carvediloL 6.25 MG TABLET PO (21:27)
[2024-07-25] MEDS: Colchicine 0.6 MG TABLET PO (21:27)
[2024-07-25] MEDS: Losartan Potassium 25 MG TABLET PO (21:27)
[2024-07-26] MEDS: 0.9 % Sodium Chloride Flush 3 ML SYRINGE IVFLUSH ×4 (00:03→20:02)
[2024-07-26] MEDS: ondansetron HCL 4 MG/2 ML VIAL IVPUSH (02:18)
[2024-07-26] MEDS: Acetaminophen 325 MG TABLET 650 MG PO (05:37)
[2024-07-26] MEDS: Omeprazole 20 MG CAPSULE.DR PO ×2 (05:38→16:51)
[2024-07-26 05:46] LABS: Hematocrit 27.9 % (37.0-47.0); Hemoglobin 9.4 g/dl (12.0-16.0); Mean Corpuscular HGB Conc 33.7 g/dl (31.0-35.0); Mean Corpuscular Hemoglobin 29.7 pg (27.0-33.0); Mean Platelet Volume 10.3 fL (9.4-12.3); Platelet Count 286 X10*3/uL (160-400); Red Blood Count 3.17 X10*6/uL (4.20-5.50); Red Cell Distribution Width 13.5 % (11.0-16.0); White Blood Count 22.6 X10*3/uL (4.8-10.8)
[2024-07-26 06:15] LABS: Anion Gap 14 (12-20); Blood Urea Nitrogen 22 mg/dL (9-16); Calcium 9.7 mg/dL (8.4-10.2); Carbon Dioxide 21 mmol/L (22-29); Chloride 109 mmol/L (96-108); Creatinine Clr Calc Pharmacy 83.8; Creatinine Clr Calc Pharmacy 84.8; Estimated Glomerular Filt Rate > 60; Glucose Random 210 mg/dL (60-115); Potassium 3.9 mmol/L (3.3-5.1); Sodium 140 mmol/L (135-145)
[2024-07-26 07:22] VITALS: BP 135/78; PULSE 106; RESP 18; TEMP 36.2; O2SAT 97
[2024-07-26] MEDS: carvediloL 6.25 MG TABLET PO ×2 (08:42→20:02)
[2024-07-26] MEDS: Colchicine 0.6 MG TABLET PO ×2 (08:42→20:02)
[2024-07-26] MEDS: Losartan Potassium 25 MG TABLET PO ×2 (08:43→20:02)
[2024-07-26] MEDS: predniSONE 20 MG TABLET 40 MG PO (08:43)
[2024-07-26] MEDS: Cholecalciferol (Vitamin D3) 25 MCG TABLET PO (08:43)
[2024-07-26] MEDS: Thiamine HCL 100 MG TABLET PO (08:43)
[2024-07-26] MEDS: Folic Acid 1 MG TABLET PO (08:43)
[2024-07-26] MEDS: Magnesium Oxide 400 MG TABLET PO ×2 (08:44→16:50)
[2024-07-26] MEDS: HYDROmorphone HCl 0.5 MG/0.5 ML SYRINGE IVPUSH (08:51)
--- NOTE | 2024-07-26 11:11 | P.PNIM_ITS ---
Subjective Subjective Date of Service: 07/26/24 Interval History: knee pain, headache Physical Exam 2 Vital Signs: Vital Signs: Last Vital Signs Temp 97.2 F 07/26/24 07:22 Pulse 106 H 07/26/24 07:22 Resp 18 07/26/24 07:22 BP 135/78 07/26/24 07:22 Pulse Ox 97 07/26/24 07:22 O2 Del Method Room Air 07/26/24 07:22 BMI result Body Mass Index 27.4 Const: Other: Alert, well in appearance Orientation/consciousness: patient oriented x3 Resp: Other: Nonlabored respirations lungs clear to auscultation Cardio: Other: Normal peripheral perfusion, no pitting edema Skin: Other: Warm dry no rash Neuro: General: patient oriented x3, no focal motor deficits and CN's II-XI intact bilaterally Psych: Other: Cooperative Objective Data Active Medications Acetaminophen (Acetaminophen 325 Mg Tablet) 650 mg PO Q6H PRN PRN Reason: Pain, Mild (Pain Scale 1-3), fever or headache Last Admin: 07/26/24 05:37 Dose: 650 mg Documented By: SYMONE Albuterol Sulfate (Albuterol Sulfate 90 Mcg 8 Gm Inhaler) 2 puff INHALE Q4H PRN PRN Reason: shortness of breath or wheezing Calcium Carbonate (Calcium Carbonate 750 Mg Tab.Chew) 750 mg PO Q4H PRN PRN Reason: Heartburn Carvedilol (Carvedilol 6.25 Mg Tablet) 6.25 mg PO BID [facility]; Protocol Last Admin: 07/26/24 08:42 Dose: 6.25 mg Documented By: BESSY Colchicine (Colchicine 0.6 Mg Tablet) 0.6 mg PO BID [facility] Last Admin: 07/26/24 08:42 Dose: 0.6 mg Documented By: BESSY Folic Acid (Folic Acid 1 Mg Tablet) 1 mg PO DAILY [facility] Last Admin: 07/26/24 08:43 Dose: 1 mg Documented By: BESSY Hydromorphone HCl (Hydromorphone Hcl 0.5 Mg/0.5 Ml Syringe) 0.5 mg IVPUSH Q4H PRN; Protocol PRN Reason: Pain, Severe (Pain Scale 7-10) Last Admin: 07/26/24 08:51 Dose: 0.5 mg Documented By: BESSY Ketorolac Tromethamine (Ketorolac Tromethamine 15 Mg/Ml Vial) 15 mg IVPUSH Q6H PRN PRN Reason: Pain, Moderate(Pain Scale 4-6) Last Admin: 07/25/24 21:31 Dose: 15 mg Documented By: SYMONE Loratadine (Loratadine 10 Mg Tablet) 10 mg PO DAILY PRN PRN Reason: allergies Losartan Potassium (Losartan Potassium 25 Mg Tablet) 25 mg PO BID [facility]; Protocol Last Admin: 07/26/24 08:43 Dose: 25 mg Documented By: BESSY Magnesium Hydroxide (Milk Of Magnesia 30 Ml Oral.Susp) 30 ml PO DAILY PRN PRN Reason: Constipation Magnesium Oxide (Magnesium [facility] 400 Mg Tablet) [facility] Last Admin: 07/26/24 08:44 Dose: 400 mg Documented By: BESSY Melatonin (Melatonin 3 Mg Tablet) 6 mg PO BEDTIME PRN PRN Reason: Insomnia Omeprazole (Omeprazole 20 Mg Capsule.Dr) 20 mg PO BID@0630,1630 [facility] Last Admin: 07/26/24 05:38 Dose: 20 mg Documented By: SYMONE Ondansetron HCl (Ondansetron Hcl 4 Mg/2 Ml Vial) 4 mg IVPUSH Q8H PRN PRN Reason: Nausea and Vomiting Last Admin: 07/26/24 02:18 Dose: 4 mg Documented By: SYMONE Prednisone (Prednisone 20 Mg Tablet) 40 mg PO DAILY [facility] Last Admin: 07/26/24 08:43 Dose: 40 mg Documented By: BESSY Sodium Chloride (0.9 % Sodium Chloride Flush 3 Ml Syringe) [facility] Last Admin: 07/26/24 08:45 Dose: 3 ml Documented By: BESSY Thiamine HCl (Thiamine Hcl 100 Mg Tablet) 100 mg PO DAILY [facility] Last Admin: 07/26/24 08:43 Dose: 100 mg Documented By: BESSY Vitamin D (Cholecalciferol (Vitamin D3) 25 Mcg Tablet) 25 mcg PO DAILY [facility] Last Admin: 07/26/24 08:43 Dose: 25 mcg Documented By: BESSY Labs 07/26/24 05:30 07/26/24 05:30 Labs: Laboratory Results - last 24 hr 07/26/24 07/26/24 07/26/24 05:30 05:30 05:30 MCV 88.0 MCH 29.7 MCHC 33.7 RDW 13.5 Plt Count 286 MPV 10.3 Absolute Nucleated RBC 0.000 Nucleated RBC % (auto) 0.0 Anion Gap 14 Estim Creat Clear Calc 83.8 84.8 Estimated GFR > 60 > 60 Random Glucose 210 H Calcium 9.7 Random Vancomycin 07/26/24 09:08 MCV MCH MCHC RDW Plt Count MPV Absolute Nucleated RBC Nucleated RBC % (auto) Anion Gap Estim Creat Clear Calc Estimated GFR Random Glucose Calcium Random Vancomycin 3.0 L Microbiology Microbiology Results: Microbiology 07/24/24 21:48 Gram Stain - Final Knee aspirate Anaerobic Culture - Preliminary No growth to date. Gross Specimen Examination - Final Fluid Crystals - Final Joint Fluid Culture - Preliminary No growth to date. 07/24/24 19:17 Blood Culture - Preliminary Blood - Venous No growth after 24 hours. 07/24/24 19:14 Blood Culture - Preliminary Blood - Venous No growth after 24 hours. Assessment and Plan (1) Effusion of knee joint right: Status: Acute Plan 48F PMH alcohol dependence, CHF with recovered ejection fraction, hypertension, GERD, osteo arthritis, breast CA presented with right knee pain Sirs due to right knee acute gout Sepsis ruled out, DC antibiotics, continue steroids and colchicine PT eval Alcohol dependence No withdrawal, monitor CIWA Acute hypo magnesemia Replace and monitor CHF with recovered ejection fraction Continue beta-lisa, losartan Hyperglycemia Check A1c DVT prophylaxis with Lovenox Full code reason for continued hospitalization: Still with significant right knee pain and inability to ambulate Quality Stroke Does the patient have a stroke diagnosis?: No VTE Prior VTE?: No VTE Risk Level:: Medical - moderate - high VTE Device Contraindication: N/A - Device Ordered VTE Drug Contraindication: Treatment Not Indicated
[2024-07-26 11:45] LABS: Estimated Average Glucose 117 mg/dL; Hemoglobin A1c % 5.7 % (<6.0); Total Hemoglobin (HGBA1C) 2412.4319 umol/L
[2024-07-26] MEDS: Enoxaparin Sodium 40 MG/0.4 ML SYRINGE SUBCUT (11:59)
[2024-07-26] MEDS: Loratadine 10 MG TABLET PO (11:59)
[2024-07-26 15:25] VITALS: BP 170/109; PULSE 99; RESP 20; TEMP 36.1; O2SAT 97
[2024-07-26] MEDS: Furosemide 40 MG TABLET PO (16:51)
[2024-07-26 17:39] LABS: Lyme Abs Screen <0.90 index
[2024-07-26 19:01] VITALS: BP 168/99; PULSE 97; RESP 20; TEMP 36.2; O2SAT 99
--- NOTE | 2024-07-26 19:07 | PC.NURSE ---
Patient educated on importance of getting supplemental O2, patient confused, keeps taking NC off and chewing on it. Frequently redirected with no behavioral change. Nasal cannula switch to oxymask to prevent patient from chewing on the tubing.
[2024-07-26] MEDS: traMADoL HCL 50 MG TABLET 25 MG PO (20:01)
[2024-07-27] VITALS: BP 157/93; PULSE 95; RESP 18; TEMP 36.5; O2SAT 98
[2024-07-27 06:20] LABS: Hematocrit 27.1 % (37.0-47.0); Hemoglobin 8.9 g/dl (12.0-16.0); Mean Corpuscular HGB Conc 32.8 g/dl (31.0-35.0); Mean Corpuscular Volume 88.3 fL (80.0-98.0); Mean Platelet Volume 11.1 fL (9.4-12.3); NRBC Pct Auto 0.1 /100WBC (0.0-0.2); Platelet Count 350 X10*3/uL (160-400); Red Blood Count 3.07 X10*6/uL (4.20-5.50); Red Cell Distribution Width 13.8 % (11.0-16.0); White Blood Count 21.1 X10*3/uL (4.8-10.8)
[2024-07-27 06:38] LABS: Anion Gap 13 (12-20); Blood Urea Nitrogen 25 mg/dL (9-16); Calcium 9.2 mg/dL (8.4-10.2); Carbon Dioxide 25 mmol/L (22-29); Chloride 105 mmol/L (96-108); Creatinine Clr Calc Pharmacy 87.9; Estimated Glomerular Filt Rate > 60; Glucose Fasting 130 mg/dL (60-99); Magnesium 1.6 mg/dL (1.6-2.6); Potassium 3.9 mmol/L (3.3-5.1); Sodium 139 mmol/L (135-145)
[2024-07-27 07:41] VITALS: BP 145/91; PULSE 91; RESP 18; TEMP 36; O2SAT 99
[2024-07-27 08:45] VITALS: BP 145/91; PULSE 91
[2024-07-27] MEDS: Thiamine HCL 100 MG TABLET PO (08:45)
[2024-07-27] MEDS: Folic Acid 1 MG TABLET PO (08:45)
[2024-07-27] MEDS: Omeprazole 20 MG CAPSULE.DR PO (08:45)
[2024-07-27] MEDS: carvediloL 6.25 MG TABLET PO (08:45)
[2024-07-27 08:46] VITALS: BP 145/91
[2024-07-27] MEDS: Magnesium Oxide 400 MG TABLET PO (08:46)
[2024-07-27] MEDS: Cholecalciferol (Vitamin D3) 25 MCG TABLET PO (08:46)
[2024-07-27] MEDS: Losartan Potassium 25 MG TABLET PO (08:46)
[2024-07-27 08:47] VITALS: BP 145/91
[2024-07-27] MEDS: predniSONE 20 MG TABLET 40 MG PO (08:47)
[2024-07-27] MEDS: Colchicine 0.6 MG TABLET PO (08:47)
[2024-07-27] MEDS: Furosemide 40 MG TABLET PO (08:47)
--- NOTE | 2024-07-27 08:48 | PM.DS ---
DS: Providers Provider Date of Service: 07/27/24 Date of admission: 07/25/24 03:06 Date of discharge: 07/27/24 Primary care physician: Shereen Latham MD Consults: 07/25/24 03:06 Consult to Orthopedics Routine Consulting Provider: [facility] Reason for consultation: ?septic knee arthritis DS: Diagnosis Discharge Diagnosis (1) Effusion of knee joint right: Status: Acute DS: Summary Hospital Course Hospital Course: from initial hpi: 48-year-old female with pertinent history of alcohol use disorder, congestive heart failure with reduced ejection fraction, hypertension, gastroesophageal reflux disease, osteoarthritis, breast cancer who presents to the emergency department for evaluation of knee pain. Patient states symptoms started 2 days prior to presentation. She has been having right knee pain which has been progressive, nonradiating and without any relieving factors. On the day of presentation, patient could not bend her right knee and was unable to ambulate. Also noticed that the knee is warm to touch. Has been having chills but no documented temperature. No history of similar symptoms in the right knee in the past. States she does have arthritis but it has never been this severe. No trauma to the right knee. Her last alcohol drink was 5 days prior to presentation. No concern of alcohol withdrawal at the time of presentation. No chest discomfort, palpitations, shortness of breath, abdominal pain, changes in urinary or bowel habits. In the emergency department, patient was found to be septic and right knee joint was tapped with 68,000 synovial WBC with 88% neutrophils. Orthopedic surgery was consulted who requested admission with IV antibiotics and to keep patient NPO. hospital course: Patient was admitted for SIRS due to right knee gout. Sepsis was ruled out as a thoracentesis revealed urate crystals and no organisms, was treated with steroids and colchicine antibiotics were discontinued and symptoms improved. Patient was seen by physical therapy who recommended short-term rehab, however, patient would like to be discharged home with VNA. She will be discharged on 5 more days of prednisone and continue colchicine. For alcohol dependence patient showed no sign of withdrawal. For acute hypomagnesemia received replacement. For CHF with recovered ejection fraction patient remained euvolemic and was continued on beta-lisa and losartan. For hyperglycemia patient's A1c was checked and was normal, likely transient elevation due to steroids. Patient is feeling better will be discharged home. Time Attestation Discharge Coordination Time (in mins): 34 Quality: Safe Use of Opioids Does Pt have an Active Cancer Diagnosis on the Problem List?: No Quality: Stroke Does the patient have a stroke diagnosis?: No Physical Exam Vital Signs: Vital Signs: Last Vital Signs Temp 96.8 F 07/27/24 07:41 Pulse 91 07/27/24 07:41 Resp 18 07/27/24 07:41 BP 145/91 H 07/27/24 07:41 Pulse Ox 99 07/27/24 07:41 O2 Del Method Room Air 07/27/24 07:41 BMI result Body Mass Index 27.4 Const: Other: Alert, well in appearance Orientation/consciousness: patient oriented x3 Resp: Other: Nonlabored respirations lungs clear to auscultation Cardio: Other: Normal peripheral perfusion, no pitting edema Skin: Other: Warm dry no rash Neuro: General: patient oriented x3, no focal motor deficits and CN's II-XI intact bilaterally Psych: Other: Cooperative DS: Data Data Completed and Pending Completed studies during hospitalization [Text1]: Procedures Detoxification Services for Substance Abuse Treatment (04/09/24) Insertion of Infusion Device into Left External Jugular Vein, Percutaneous Approach (04/09/24) Ultrasonography of Left Jugular Veins, Guidance (04/09/24) Labs on day of discharge: Laboratory Results - last 24 hr 07/24/24 07/26/24 07/26/24 19:14 05:30 09:08 WBC RBC Hgb Hct MCV MCH MCHC RDW Plt Count MPV Absolute Nucleated RBC Nucleated RBC % (auto) Sodium Potassium Chloride Carbon Dioxide Anion Gap BUN Creatinine Estim Creat Clear Calc Estimated GFR Fasting Glucose Estimat Average Glucose 117 Hemoglobin A1c % 5.7 Calcium Magnesium Random Vancomycin 3.0 L Lyme Screen IgG & IgM <0.90 07/27/24 05:26 WBC 21.1 H RBC 3.07 L Hgb 8.9 L Hct 27.1 L MCV 88.3 MCH 29.0 MCHC 32.8 RDW 13.8 Plt Count 350 MPV 11.1 Absolute Nucleated RBC 0.020 H Nucleated RBC % (auto) 0.1 Sodium 139 Potassium 3.9 Chloride 105 Carbon Dioxide 25 Anion Gap 13 BUN 25 H Creatinine 0.83 Estim Creat Clear Calc 87.9 Estimated GFR > 60 Fasting Glucose 130 H Estimat Average Glucose Hemoglobin A1c % Calcium 9.2 Magnesium 1.6 Random Vancomycin Lyme Screen IgG & IgM Preliminary micro results at discharge 07/24/24 21:48 Anaerobic Culture - Preliminary Knee aspirate No growth to date. 07/24/24 19:17 Blood Culture - Preliminary Blood - Venous No growth after 48 hours. 07/24/24 19:14 Blood Culture - Preliminary Blood - Venous No growth after 48 hours. Discharge Plan Discharge Anticipated Discharge Date/Time: 07/27/24 08:43 Patient Disposition: Home Health Service Discharge Diagnosis: right knee gout Referrals: Shereen Latham MD [Primary Care Provider] - 1 Week Discharge Medications: New prednisone 20 mg Tablet 40 mg PO DAILY Qty: 10 0RF Continued (DME) ACL defiance brace See Rx Instructions .ROUTE .MEDSUPPLY Qty: 1 0RF Rx Instructions: n/a colchicine 0.6 mg tablet 0.6 mg PO BID Qty: 60 1RF thiamine HCl (vitamin B1) 100 mg tablet 1 tab PO DAILY omeprazole 20 mg capsule,delayed release(DR/EC) 1 cap PO DAILY@0630 folic acid 1 mg tablet 1 tab PO DAILY magnesium oxide 400 mg (241.3 mg magnesium) Tablet 400 mg PO BIDPC 30 Days Qty: 60 0RF cholecalciferol (vitamin D3) [Vitamin D3] 25 mcg (1,000 unit) capsule 1 cap PO DAILY furosemide 40 mg Tablet 40 mg PO DAILY Qty: 30 0RF Protocol: Hold for SBP< HOLD for SBP < : 90 carvedilol 6.25 mg Tablet 6.25 mg PO BID Qty: 60 0RF Protocol: Hold for SBP/HR < HOLD for SBP < : 90 HOLD for HR < : 60 losartan 25 mg Tablet 25 mg PO BID Qty: 60 0RF Protocol: Hold for SBP< HOLD for SBP < : 90 cetirizine 10 mg tablet 10 mg PO DAILY PRN (Reason: allergies) acetaminophen 500 mg tablet 500 mg PO Q6H PRN (Reason: fever) allopurinol 100 mg tablet 100 mg PO DAILY albuterol sulfate 90 mcg/actuation HFA aerosol inhaler 2 puff inhalation Q4H PRN (Reason: shortness of breath or wheezing) Discharge Orders: Discharge Order (Routine); Ordered 07/27/24 Ordered By: Anson Hernandez Diet: Advance to usual diet Activity on Discharge: As tolerated Stand Alone Forms: Patient Portal Discharge page Print Language: Colombian Care Plan Goals: Recovery Health Concerns: Right knee gout Plan of Treatment: 5 more days of prednisone, home PT Assessment: See above
[2024-07-27] MEDS: Ketorolac Tromethamine 15 MG/ML VIAL IVPUSH (08:55)
[2024-07-27] MEDS: 0.9 % Sodium Chloride Flush 3 ML SYRINGE IVFLUSH (08:56)
--- NOTE | 2024-07-27 09:07 | W.MHC.F2F ---
Service Date Service Date: 07/27/24 Encounter Date of encounter: 07/27/24 Reasons for Services Signs and symptoms assessed: Right knee pain Reason for usp: medication management, medication treatment and teach disease management Reason for physical therapy: home safety and mobility, therapeutic exercises, restore joint function and gait/transfer training Homebound: Leaving the home is medically contraindicated at this time without the asist of a device and/or another person due th the listed conditions above and below. Reason homebound: pain with ambulation Certification: Based on the above findings, I certify that this patient is confined to the home and needs intermittent usp care, physical therapy and/or speech therapy, or continues to need occupational therapy. The patient is under my care, and I have initiated the establishment of the plan of care. The patient will be followed by a physician who will periodically review the plan of care. Time Spent With Patient Time: Total time managing care of this patient today ____ minutes.
--- NOTE | 2024-07-27 09:13 | MHC.CM.PN ---
Addendum entered by Dominique Bell RN 07/27/24 12:25: Post d/c CM rec'd message to call Rajni Key @ [facility] regarding this patient. CM LM for Rajni @ [phone] ext [phone]. Original Note: Per MD patient medically cleared for dc home w/ services. Will have PT/SN through [facility]. Will transport home via BLS at 10:30am. Patient and RN aware.
[2024-07-29 10:58] LABS: Glucose Synovial Fluid < 2
[2024-07-29 10:59] LABS: Total Protein Synovial Fluid 3.8
== END 2024-07-27 10:48 | disposition home health service (06) | DRG 351 ==
LOC: HO.ED 07-25 01:47 → HO.EDOVER 07-25 03:22 → HO.S3 07-25 07:12
PROVIDERS: Student in an Organized Health Care Education/Training Program; Admitting Provider Student in an Organized Health Care Education/Training Program; Emergency Provider Emergency Medicine; PCP Family Medicine; Visit Provider Internal Medicine
DX: M10.9 Gout, unspecified (principal); I11.0 Hypertensive heart disease with heart failure; I50.22 Chronic systolic (congestive) heart failure; E83.42 Hypomagnesemia; K21.9 Gastro-esophageal reflux disease without esophagitis; F10.20 Alcohol dependence, uncomplicated; R73.9 Hyperglycemia, unspecified; F17.210 Nicotine dependence, cigarettes, uncomplicated; Z20.822 Contact with and (suspected) exposure to COVID-19; Z85.3 Personal history of malignant neoplasm of breast; Z71.6 Tobacco abuse counseling; Z79.51 Long term (current) use of inhaled steroids; Z79.899 Other long term (current) drug therapy
CPT/HCPCS: 0241U; 36415; 73564; 80048; 80076; 80202; 80307; 81003; 81025; 82565; 82945; 83036; 83605; 83735; 84157; 85025; 85027; 85652; 86140; 86617; 86618; 87040; 87070; 87073; 87205; 87476; 89051; 89060; 97162; 99285; J0696; J1170; J1650; J1885; J2060; J2270; J2405; J2919; J3370; J3475; J7120

== ENCOUNTER → 2024-07-25 03:06 | Outpatient (BNV) | payer MEDICAID, SELFPAY | PROVIDERS: Admitting Provider Student in an Organized Health Care Education/Training Program; Emergency Provider Emergency Medicine; PCP Family Medicine; Visit Provider Student in an Organized Health Care Education/Training Program | DX: M00.861 Arthritis due to other bacteria, right knee (principal); A41.9 Sepsis, unspecified organism | CPT/HCPCS: 99222; 99232; 99239; 99499; G0180 ==

== ENCOUNTER 2024-08-01 07:57 | Outpatient (AMB) | payer MEDICAID, SELFPAY ==
--- NOTE | 2024-08-01 08:27 | MHC.OFFVIS ---
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 Allergies amoxicillin [AMOXICILLIN] Allergy (Intermediate, Verified 08/01/24 09:25) rash, rash/itching sulfamethoxazole [From BACTRIM] Allergy (Intermediate, Verified 08/01/24 09:25) RASH trimethoprim [From BACTRIM] Allergy (Intermediate, Verified 08/01/24 09:25) RASH hydrocodone [Hydrocodone] Allergy (Mild, Verified 08/01/24 09:25) ITCH ibuprofen [From Motrin] Allergy (Mild, Verified 08/01/24 09:25) UPSET STOMACH latex [Latex] Allergy (Mild, Verified 08/01/24 09:25) ITCH Medication List - Last Reconciled 08/01/24 by ARCHIE Chavez acetaminophen 500 mg PO Q6H PRN [ACL defiance brace n/a] albuterol sulfate 90 mcg/actuation 2 puffs inhalation Q4H PRN allopurinol 100 mg PO DAILY carvedilol 6.25 mg See Protocol PO BID cetirizine 10 mg PO DAILY PRN cholecalciferol (vitamin D3) (Vitamin D3) 1 cap PO DAILY folic acid 1 tab PO DAILY furosemide 40 mg See Protocol PO DAILY losartan 25 mg See Protocol PO BID magnesium oxide 400 mg PO BIDPC 30 days omeprazole 1 cap PO DAILY@0630 thiamine HCl (vitamin B1) 1 tab PO DAILY HPI HPI [facility] pt: Details: Azra is a 48-year-old female with past medical history of uncontrolled hypertension, alcohol use, cardiomyopathy who was last seen in our office 10/15/2021 for cardiac evaluation. Echo following that visit showed EF 30-35%, mild LVH. A nuclear stress test was done however incomplete as patient did not show for resting images. She did not come for cardiology follow-up. [place] [facility] [place] [id number]ness of breath and treated for decompensated heart failure. She was diuresed with IV Lasix and started on Lasix, Aldactone and losartan. Carvedilol was added at time of discharge. Her echo showed normal EF. Today she reports that her blood pressure was running low normal and her primary doctor stopped the Aldactone. She still has some symptoms of shortness of breath with activity. She tells me she sleeps with 4 pillows which is her norm. No coughing or recent illness. No chest discomfort brought on by physical activity. She has a continual ache in her left upper chest. No heart palpitations lasting more than a second. No dizziness, presyncope, syncope, falls. Mostly sedentary. Tells me she takes her meds as directed. Recent issue with gout in her knee. She is now on prednisone and tells me it is helping. [facility] Medical History Depression Anxiety and depression Lower back pain History of COVID-19 Uncontrolled hypertension Panic attack H/O ETOH abuse Anxiety History of low potassium Breast cancer Hypertension Surgical History History of carpal tunnel release Hx of tubal ligation History of breast lump/mass excision H/O: hysterectomy Family History Mother Heart disease Alzheimers disease Social History Household Members: None Housing: Apartment Housing Other:: 4th floor. No elevator Are you a primary healthcare educator to a significant other at home: No Do you presently have visiting nurse or other home services: Yes ([employer] twice daily) Alcohol intake: former Comment: 1:1 SI Patient Tobacco Use Status: Current someday Tobacco user Tobacco use type: Cigarette Cigarettes Per Day: 2 Years Smoked: 38YRS e-Cigarette/Vaping Use: Never Used Second Hand Smoke Exposure: Yes Advance Directives Date on File: 02/11/22 service: No Current occupational status: disabled Review of Systems Const All systems reviewed & are unremarkable except as noted in HPI and below ENT Denies dizziness Card Details: continual ache left upper chest Denies chest pain, Denies chest pain at rest, Denies chest pain with activity, Denies rapid heart rate, Denies pedal edema, Denies edema, Denies leg edema, Denies lightheadedness, Denies palpitations, Denies dyspnea, Reports dyspnea on exertion and Denies orthopnea Resp Denies cough, Denies dyspnea and Reports dyspnea on exertion GI Denies hematochezia and Denies change in stool character Musc Details: Knee pain from gout Denies abnormal gait, Reports limited range of motion, Denies muscle cramps, Denies muscle weakness, Denies numbness, Denies radiating pain into limb, Denies stiffness and Denies tingling Neuro Denies abnormal gait, Denies dizziness, Denies numbness and Denies tingling Endo Denies palpitations Physical Exam Vital Signs: Last Vital Signs Pulse 87 08/01/24 08:28 BP 138/90 H 08/01/24 08:28 BMI result Body Mass Index 28.2 Const General: cooperative, healthy appearing, comfortable and no acute distress Orientation/consciousness: patient oriented x3 Neck Neck: Yes normal visual inspection Resp Effort & Inspection: normal respiratory effort Auscultation: clear to auscultation bilaterally, no crackles, no rales, no rhonchi and no wheezes Cardio Jugular venous distension: no JVD Rate: regular rate Rhythm: regular rhythm Heart sounds: S1 normal heart sound present, S2 normal heart sound present, no murmurs and no rubs Neuro General: patient oriented x3 Extrem General: Yes normal to inspection, No no pedal edema and No calf tenderness Psych Appearance: grossly normal Mental Status: mental status grossly normal Speech and movement: Normal speech and movement present Assessment & Plan Assessment & Plan (1) (HFpEF) heart failure with preserved ejection fraction: Code(s): I50.30 - Unspecified diastolic (congestive) heart failure Category: Medical Plan: Echocardiogram done 10/18/2021 had shown EF 30-35%, mild LVH. She did not come for cardiology follow-up after that finding. A stress test at that time was incomplete. [place] [facility] [place] breath and treated for Congestive heart failure. She was diuresed with IV Lasix. She was started on Lasix 40 mg daily, Aldactone 25 mg daily, losartan 25 mg b.i.d. and carvedilol 6.25 mg b.i.d.. She says that her blood pressure was running low normal and her PCP stopped her Aldactone. Today she reports that her breathing is still labored with activity. She admits to being mostly sedentary. On exam she does not appear fluid overloaded. Her blood pressure is elevated today, initially 140/96, recheck done by me 148/100. Will restart her Aldactone, currently at 12.5 mg daily. Echocardiogram had been done 06/23/2024 showing EF 55-60%, small loculated effusion over the left ventricle with no signs of tamponade. Will order an exercise nuclear stress test for further evaluation of her Congestive heart failure and prior cardiomyopathy. Informed her that the stress test is in 3 parts and that she will need to attend all 3. She states understanding. She can exercise on the treadmill that day if she is not having knee pain. If she is having knee issues then may need to use Lexiscan. Her cardiomyopathy may be related to uncontrolled hypertension, alcohol use. Ischemia will need to be ruled out. Cardiology follow-up in 2-3 months, sooner if needed. (2) Hypertension: Code(s): I10 - Essential (primary) hypertension Category: Medical Qualifiers: Hypertension type: unspecified Qualified Code(s): I10 - Essential (primary) hypertension Plan: As above. Currently not optimally controlled. (3) Alcohol abuse: Code(s): F10.10 - Alcohol abuse, uncomplicated Category: Social Hx Plan: History of alcohol abuse. Discussed need for cessation. (4) Hospital discharge follow-up: Code(s): Z09 - Encounter for follow-up examination after completed treatment for conditions other than malignant neoplasm Category: Medical Plan: As above Plan Time spent on chart review, documentation, interview and assessment Coding Level of Care Code Est Pt Level 4 (22998) Diagnoses (HFpEF) heart failure with preserved ejection fraction I50.30 Hypertension I10 Hypertension type: unspecified Alcohol abuse F10.10 Hospital discharge follow-up Z09 Time Spent (min) 30
[2024-08-01 08:28] VITALS: BP 138/90; PULSE 87; BMI 28.2
== END 2024-08-01 09:33 | disposition home or self-care (01) ==
PROVIDERS: PCP Family Medicine; Visit Provider Nurse Practitioner Family
DX: I50.30 Unspecified diastolic (congestive) heart failure (principal); I10 Essential (primary) hypertension; F10.10 Alcohol abuse, uncomplicated; Z09 Encounter for follow-up examination after completed treatment for conditions other than malignant neoplasm
CPT/HCPCS: 99214

== ENCOUNTER → 2024-08-01 07:57 | Outpatient (BNVA) | payer MEDICAID, SELFPAY | PROVIDERS: PCP Family Medicine; Visit Provider Nurse Practitioner Family | DX: Z09 Encounter for follow-up examination after completed treatment for conditions other than malignant neoplasm (principal); R06.00 Dyspnea, unspecified; Z91.09 Other allergy status, other than to drugs and biological substances; I11.0 Hypertensive heart disease with heart failure; I50.30 Unspecified diastolic (congestive) heart failure; I42.9 Cardiomyopathy, unspecified; F10.10 Alcohol abuse, uncomplicated; F17.210 Nicotine dependence, cigarettes, uncomplicated | CPT/HCPCS: 99212 ==

== ENCOUNTER 2024-08-01 09:19 | Outpatient (AMB) | payer MEDICAID, SELFPAY ==
--- NOTE | 2024-08-01 08:45 | A.OFFVIS_ITS ---
Vital Signs 08/01/24 09:20 Height 5 ft 7 in Weight 179 lb 10.828 oz BMI 28.1 BP 140/96 H Blood Pressure Location Rt brachial Position Sitting Pulse 86 Pulse Source Pulse Oximeter Pulse Oximetry (%) 98 Oxygen Delivery Method Room Air Intake Visit Reasons: Shortness of breath Allergies amoxicillin [AMOXICILLIN] Allergy (Intermediate, Verified 08/01/24 09:25) rash, rash/itching sulfamethoxazole [From BACTRIM] Allergy (Intermediate, Verified 08/01/24 09:25) RASH trimethoprim [From BACTRIM] Allergy (Intermediate, Verified 08/01/24 09:25) RASH hydrocodone [Hydrocodone] Allergy (Mild, Verified 08/01/24 09:25) ITCH ibuprofen [From Motrin] Allergy (Mild, Verified 08/01/24 09:25) UPSET STOMACH latex [Latex] Allergy (Mild, Verified 08/01/24 09:25) ITCH HPI HPI Shortness of breath: Details: Azra is a pleasant 48 year old female, current minimal smoker, with 10 pack year history, with underlying HTN, CHF , h/o of right breast adenocarcinoma s/p mastectomy/ chemo 2007 and alcohol dependence. She was referred by PCP for pulmonary evaluation for ongoing dyspnea. She reports progressively worsening dyspnea for the past years with associated chest tightness. Denies cough or wheezing. She has trialed albuterol however develops palpitations and tachycardia. She was recently admitted in June to [facility] for CHF exacerbation and is now maintained on lasix 40 mg. Recent CXR unremarkable. Prior CT chest 02/22 did not reveal emphysematous changes or concerning nodules. She denies prior h/o asthma. She reports multiple first degree family members with asthma. She reports seasonal allergies, no recent allergy testing. She denies pets at home. She denies any occupational exposures. [facility] Medical History Depression Anxiety and depression Lower back pain History of COVID-19 Uncontrolled hypertension Panic attack H/O ETOH abuse Anxiety History of low potassium Breast cancer Hypertension Surgical History History of carpal tunnel release Hx of tubal ligation History of breast lump/mass excision H/O: hysterectomy Family History Mother Heart disease Alzheimers disease Social History (Updated 08/01/24 @ 09:26 by Shereen Mccauley CMA) Household Members: None Housing: Apartment Housing Other:: 4th floor. No elevator Are you a primary day care assistant to a significant other at home: No Do you presently have visiting nurse or other home services: Yes (Physical Testing Supervisor twice daily) Alcohol intake: former Comment: 1:1 SI Patient Tobacco Use Status: Current someday Tobacco user Tobacco use type: Cigarette Cigarettes Per Day: 2 Years Smoked: 38YRS e-Cigarette/Vaping Use: Never Used Second Hand Smoke Exposure: Yes Advance Directives Date on File: 02/11/22 service: No Current occupational status: disabled Review of Systems Const Denies chills, Denies excessive sweating, Denies fever(s), Denies headache(s) and Denies night sweats Eyes Denies dry eyes, Denies irritation and Denies itchy eyes ENT Reports Normal hearing present, Denies headache(s), Denies nasal congestion, Denies nasal discharge, Denies post nasal drip and Denies sore throat Card Denies chest pain, Denies chest pain at rest, Denies chest pain with activity, Denies claudication, Denies leg edema, Reports dyspnea, Reports dyspnea on exertion and Denies paroxysmal nocturnal dyspnea Resp Denies chest congestion, Denies cough, Denies excessive phlegm production, Denies pain on inspiration, Denies pain with cough, Reports dyspnea, Reports dyspnea on exertion, Denies stridor and Denies wheezing Musc Denies myalgias Neuro Reports Normal hearing present and Denies headache(s) Endo Denies excessive sweating Dominguez/Lymph Denies lymphadenopathy Aller/Immun Denies itchy eyes, Reports seasonal rhinorrhea and Denies wheezing Physical Exam Vital Signs: Last Vital Signs Pulse 86 08/01/24 09:20 BP 140/96 H 08/01/24 09:20 Pulse Ox 98 08/01/24 09:20 Oxygen Delivery Method Room Air 08/01/24 09:20 BMI result Body Mass Index 28.1 Const General: cooperative, healthy appearing, comfortable, no acute distress, well developed and alert Orientation/consciousness: patient oriented x3 Limitations: no limitations HEENT Head: Yes normal to inspection, Yes normocephalic and Yes atraumatic Ears: hearing grossly normal bilaterally and external ears normal Eyes General: appearance normal, both eyes and all related structures Eyelids: Yes eyelids normal Sclerae: sclerae normal EOM: EOMs intact bilaterally Neck Neck: Yes normal visual inspection and Yes no lymphadenopathy Lymphatic: no lymphadenopathy noted Chest Chest palpation & inspection: normal inspection of the chest Resp Effort & Inspection: normal respiratory effort, able to speak in complete sentences, no audible wheezes, no cough, no stridor, not tachypneic, no tripod positioning and no use of accessory muscles Auscultation: clear to auscultation bilaterally Cardio Jugular venous distension: no JVD Rate: regular rate Rhythm: regular rhythm Skin Other: warm, dry General skin exam: no rashes or lesions noted Neuro General: patient oriented x3 Cranial nerves: Yes Normal hearing present Cognition (Neuro): normal cognition Gait exam (Neuro): Normal gait present Extrem General: Yes normal to inspection, Yes capillary refill normal, Yes no clubbing, cyanosis or edema and Yes no pedal edema Psych Appearance: grossly normal and well kempt Speech and movement: Normal speech and movement present and Clear speech present Affect: normal affect Attitude: cooperative Thought process: Normal thought process present Thought content: Normal thought content present Insight: Good insight present (Psych) Judgement: Good judgement present (Psych) Assessment & Plan Assessment & Plan (1) Dyspnea: Code(s): R06.00 - Dyspnea, unspecified Category: Medical (2) Environmental allergies: Code(s): Z91.09 - Other allergy status, other than to drugs and biological substances Category: Medical (3) Nicotine dependence, cigarettes, uncomplicated: Code(s): F17.210 - Nicotine dependence, cigarettes, uncomplicated Category: Medical Plan Azra's symptoms are likely multifactorial with pulmonary and cardiac e tiologies. Will send for PFT to assess for any obstructive defect. Will empirically trial ICS. Discussed importance of good oral hygiene to prevent thrush. Will also send for RAST to assess for allergic contribution. All questions were answered and patient is in agreement of plan. Will follow up in 6-8 weeks or sooner if needed. Orders: Orders Resp Allergy Profile Region I Today Z91.09 - Other allergy status, other than to drugs and biological substances Complete Blood Count Auto Diff Today Z91.09 - Other allergy status, other than to drugs and biological substances PFT pulmonary function test Today R06.00 - Dyspnea, unspecified Immunoglobulin E Today Z91.09 - Other allergy status, other than to drugs and biological substances Medications: New fluticasone furoate 100 mcg/actuation (Arnuity Ellipta) 1 inh inhalation DAILY 30 ea 3RF Coding Level of Care Code New Pt Level 4 (86092) Diagnoses Dyspnea R06.00 Environmental allergies Z91.09 Nicotine dependence, cigarettes, uncomplicated F17.210
[2024-08-01 09:20] VITALS: BP 140/96; PULSE 86; O2SAT 98; BMI 28.1
== END 2024-08-01 09:51 | disposition home or self-care (01) ==
PROVIDERS: PCP Family Medicine; Referring Provider Family Medicine; Visit Provider Nurse Practitioner Family
DX: R06.00 Dyspnea, unspecified (principal); Z91.09 Other allergy status, other than to drugs and biological substances; F17.210 Nicotine dependence, cigarettes, uncomplicated
CPT/HCPCS: 99204

== ENCOUNTER 2024-08-07 09:23 | Emergency (ER) | payer MEDICAID, SELFPAY ==
[2024-08-07 09:41] VITALS: BP 122/90; PULSE 110; RESP 16; TEMP 36.7; O2SAT 98; BMI 27.4
--- NOTE | 2024-08-07 10:40 | ED.GENADULT ---
HPI - General Adult General Chief complaint: Extremity Problem Stated complaint: R knee pain Time Seen by Provider: 08/07/24 10:14 Source: patient Mode of arrival: ambulatory Limitations: no limitations History of Present Illness ED Provider: Leo AARON_ HPI narrative: 48-year-old female history of alcohol abuse, gout, heart failure, osteoarthritis of knee, history of breast cancer, presents to ED for right knee gout exacerbation. Patient admitted 2 weeks ago for the gout exacerbation. Patient states able to bear weight able to walk no significant swelling but just still having some pain. Patient denies any calf pain, chest pain, shortness of breath, fever, and chills. Patient admits to not being compliant with low uric purine diet. Patient states finish prednisone and presently taking allopurinol. Related Data Home Medications ?Medication ?Instructions ?Recorded ?Confirmed folic acid 1 mg tablet 1 tab PO DAILY 09/30/21 08/01/24 omeprazole 20 mg capsule,delayed 1 cap PO DAILY@0630 09/30/21 08/01/24 release thiamine HCl (vitamin B1) 100 mg 1 tab PO DAILY 09/30/21 08/01/24 tablet cholecalciferol (vitamin D3) 25 1 cap PO DAILY 06/04/22 08/01/24 mcg (1,000 unit) capsule (Vitamin D3) cetirizine 10 mg tablet 10 mg PO DAILY PRN allergies 04/10/24 08/01/24 acetaminophen 500 mg tablet 500 mg PO Q6H PRN fever 07/25/24 08/01/24 albuterol sulfate 90 mcg/actuation 2 puff inhalation Q4H PRN 07/25/24 08/01/24 aerosol inhaler shortness of breath or wheezing allopurinol 100 mg tablet 100 mg PO DAILY 07/25/24 08/01/24 Previous Rx's ?Medication ?Instructions ?Recorded ACL defiance brace #1 ea 07/29/21 magnesium oxide 400 mg (241.3 mg 400 mg PO BIDPC 30 days #60 tabs 10/02/21 magnesium) tablet carvedilol 6.25 mg tablet 6.25 mg PO BID #60 tabs 06/24/24 furosemide 40 mg tablet 40 mg PO DAILY #30 tabs 06/24/24 losartan 25 mg tablet 25 mg PO BID #60 tabs 06/24/24 fluticasone furoate 100 1 inh inhalation DAILY #30 ea 08/01/24 mcg/actuation blister powder for inhalation (Arnuity Ellipta) spironolactone 25 mg tablet 12.5 mg (1/2 x 25 mg) PO QAM 90 08/02/24 days #45 tabs colchicine 0.6 mg capsule 0.6 mg PO BID 3 days #6 caps 08/07/24 prednisone 20 mg tablet 60 mg (3 x 20 mg) PO DAILY 5 days 08/07/24 #15 tabs Allergies Allergy/AdvReac Type Severity Reaction Status Date / Time amoxicillin [AMOXICILLIN] Allergy Intermediate rash, Verified 08/07/24 09:43 rash/itching sulfamethoxazole Allergy Intermediate RASH Verified 08/07/24 09:43 [From BACTRIM] trimethoprim [From BACTRIM] Allergy Intermediate RASH Verified 08/07/24 09:43 hydrocodone [Hydrocodone] Allergy Mild ITCH Verified 08/07/24 09:43 ibuprofen [From Motrin] Allergy Mild UPSET Verified 08/07/24 09:43 STOMACH latex [Latex] Allergy Mild ITCH Verified 08/07/24 09:43 Review of Systems Review of Systems: Right knee pain Yes all other systems are reviewed and are negative [facility] Past Medical History Medical History Depression Anxiety and depression Lower back pain History of COVID-19 Uncontrolled hypertension Panic attack H/O ETOH abuse Anxiety History of low potassium Breast cancer Hypertension Surgical History History of carpal tunnel release Hx of tubal ligation History of breast lump/mass excision H/O: hysterectomy Family History Family History Mother Heart disease Alzheimers disease Social History Social History (Updated 08/01/24 @ 09:26 by Shereen Mccauley CMA) Household Members: None Housing: Apartment Housing Other:: 4th floor. No elevator Are you a primary care technician to a significant other at home: No Do you presently have visiting nurse or other home services: Yes (Cashier Manager twice daily) Alcohol intake: former Comment: 1:1 SI Patient Tobacco Use Status: Current someday Tobacco user Tobacco use type: Cigarette Cigarettes Per Day: 2 Years Smoked: 38YRS e-Cigarette/Vaping Use: Never Used Second Hand Smoke Exposure: Yes Advance Directives: Yes Advance Directives on File: Yes Advance Directives Date on File: 02/11/22 service: No Current occupational status: disabled Physical Exam ED Vital Signs: Vital Signs - 24 hr 08/07/24 09:41 08/07/24 11:32 Temperature 98.0 F 98.9 F Pulse Rate 110 H 100 Respiratory Rate 16 20 Blood Pressure 122/90 H 127/97 H Pulse Oximetry 98 98 Oxygen Delivery Method Room Air Room Air BMI result Body Mass Index 27.4 Const General: cooperative, healthy appearing, comfortable, no acute distress, well developed, alert, awake and Physically active Orientation/consciousness: patient oriented x3 [facility] Head: Yes normal to inspection, Yes No palpable skull fracture present, Yes normocephalic and Yes atraumatic Eyes General: appearance normal, both eyes and all related structures Neck Neck: Yes normal visual inspection, Yes full ROM, Yes no lymphadenopathy, Yes no meningeal signs, Yes trachea midline, Yes supple, No anterior neck swelling and No tender Chest Chest palpation & inspection: normal inspection of the chest and normal palpation of entire chest wall Resp Effort & Inspection: normal respiratory effort and able to speak in complete sentences Auscultation: clear to auscultation bilaterally Cardio Jugular venous distension: no JVD Heart sounds: S1 normal heart sound present and S2 normal heart sound present GI Inspection: Yes normal to inspection Palpation (GI): Soft to palpation, not firm, nontender, no guarding and not rigid General: Yes no CVA tenderness Back/Spine/Pelvis Back: no CVA tenderness and No back tenderness Skin General skin exam: no rashes or lesions noted, elasticity normal and turgor normal Neuro General: patient oriented x3, gait normal, tone normal, moves all extremities, Normal light touch and pain sensation, no meningeal signs, no focal motor deficits, CN's II-XI intact bilaterally and normal sensation to monofilament Extrem General: Yes normal to inspection, Yes full ROM and Yes capillary refill normal Knee images: 1. Tenderness on palpation. Negative stiffness, negative ecchymosis, erythema, warmth, hotness, or coldness. Positive for slight swelling. Rest of extremity normal. Motor/neuro/vascular exam intact. 2. Tenderness on palpation. Negative stiffness, negative ecchymosis, erythema, warmth, hotness, or coldness. Positive for slight swelling. Rest of extremity normal. Motor/neuro/vascular exam intact. Psych Appearance: grossly normal, well kempt and not disheveled Medical Decision Making Medical Decision Making MDM Narrative: 48-year-old female with multiple medical history including gout presents to ED for right knee exacerbation gout without any trauma. Patient denies any recent trauma, calf pain, leg swelling, travel, chest pain, shortness of breath, fever, or chills. No need for repeat knee imaging. Not suspecting fracture. Not suspecting septic joint, osteomyelitis, hemarthrosis, compartment syndrome, arterial occlusion or DVT. Patient explained worrisome sign informed to return to the ED immediately Differential Diagnosis Differential Diagnoses: The differential diagnosis associated with the presentation includes (Arthritis, septic knee joint, gout) Admission/Observation Consideration of admission/observation: Escalation of care including admission/observation considered Independent Historian Clinical information obtained from an independent historian. History obtained from or confirmed by: Other (Patient) External Record Review External record reviewed: Other (Prior visits) Prescription Management I considered prescription management with: Pain Medication Discharge Plan Discharge Clinical Impression: Gout Qualifiers: Gout site: foot Gout etiology: idiopathic Chronicity: acute Laterality: left Qualified Code(s): M10.072 - Idiopathic gout, left ankle and foot Patient Disposition: Home, Self-Care Instructions: Low Purine Diet (ED), Gout (ED) Additional Instructions: Recommend follow-up with your primary care provider. You will be given another course of steroids and also be given colcochine. Return to the ED for increased swelling, knee stiffness, inability to walk, fever, warmth, chest pain, shortness of breath, calf pain, bluish black discoloration, or any other concerning symptoms. Continue taking allopurinol Prescriptions: New prednisone 20 mg tablet 60 mg PO DAILY 5 Days Qty: 15 0RF colchicine 0.6 mg capsule 0.6 mg PO BID 3 Days Qty: 6 0RF No Action (DME) ACL defiance brace See Rx Instructions .ROUTE .MEDSUPPLY Qty: 1 0RF Rx Instructions: n/a spironolactone 25 mg tablet 12.5 mg PO QAM 90 Days Qty: 45 3RF thiamine HCl (vitamin B1) 100 mg tablet 1 tab PO DAILY omeprazole 20 mg capsule,delayed release(DR/EC) 1 cap PO DAILY@0630 folic acid 1 mg tablet 1 tab PO DAILY magnesium oxide 400 mg (241.3 mg magnesium) Tablet 400 mg PO BIDPC 30 Days Qty: 60 0RF cholecalciferol (vitamin D3) [Vitamin D3] 25 mcg (1,000 unit) capsule 1 cap PO DAILY furosemide 40 mg Tablet 40 mg PO DAILY Qty: 30 0RF Protocol: Hold for SBP< HOLD for SBP < : 90 carvedilol 6.25 mg Tablet 6.25 mg PO BID Qty: 60 0RF Protocol: Hold for SBP/HR < HOLD for SBP < : 90 HOLD for HR < : 60 losartan 25 mg Tablet 25 mg PO BID Qty: 60 0RF Protocol: Hold for SBP< HOLD for SBP < : 90 cetirizine 10 mg tablet 10 mg PO DAILY PRN (Reason: allergies) acetaminophen 500 mg tablet 500 mg PO Q6H PRN (Reason: fever) allopurinol 100 mg tablet 100 mg PO DAILY albuterol sulfate 90 mcg/actuation HFA aerosol inhaler 2 puff inhalation Q4H PRN (Reason: shortness of breath or wheezing) Arnuity Ellipta 100 mcg/actuation blister with device 1 inh inhalation DAILY Qty: 30 3RF Stand Alone Forms: Work/School Release Interventions: ED Discharge Assessment Last Done: 08/07/24 11:32 Discharge Date/Time: 08/07/24 11:33 Print Language: Guinean
[2024-08-07 11:32] VITALS: BP 127/97; PULSE 100; RESP 20; TEMP 37.2; O2SAT 98
== END 2024-08-07 11:33 | disposition home or self-care (01) ==
PROVIDERS: Emergency Provider Emergency Medicine; PCP Family Medicine
DX: M10.072 Idiopathic gout, left ankle and foot (principal); Z79.899 Other long term (current) drug therapy; F17.210 Nicotine dependence, cigarettes, uncomplicated
CPT/HCPCS: 99282

== ENCOUNTER 2024-08-08 14:00 | Outpatient (AMB) | payer MEDICAID, SELFPAY ==
--- NOTE | 2024-08-08 14:07 | MHC.OFFVIS ---
Vital Signs 08/08/24 14:12 Height 5 ft 7 in Weight 180 lb 5.41 oz BMI 28.2 BP 130/80 Blood Pressure Location Rt brachial Position Sitting Pulse 110 H Pulse Source Pulse Oximeter Pulse Oximetry (%) 97 Oxygen Delivery Method Room Air Intake Visit Reasons: Gout/CM Intake Note: Patient presents for Gout. Allergies amoxicillin [AMOXICILLIN] Allergy (Intermediate, Verified 08/08/24 14:10) rash, rash/itching sulfamethoxazole [From BACTRIM] Allergy (Intermediate, Verified 08/08/24 14:10) RASH trimethoprim [From BACTRIM] Allergy (Intermediate, Verified 08/08/24 14:10) RASH hydrocodone [Hydrocodone] Allergy (Mild, Verified 08/08/24 14:10) ITCH ibuprofen [From Motrin] Allergy (Mild, Verified 08/08/24 14:10) UPSET STOMACH latex [Latex] Allergy (Mild, Verified 08/08/24 14:10) ITCH Medication List - Last Reconciled 08/08/24 by Leta Lunsford MD acetaminophen 500 mg PO Q6H PRN [ACL defiance brace n/a] albuterol sulfate 90 mcg/actuation 2 puffs inhalation Q4H PRN allopurinol 100 mg PO DAILY carvedilol 6.25 mg See Protocol PO BID cetirizine 10 mg PO DAILY PRN cholecalciferol (vitamin D3) (Vitamin D3) 1 cap PO DAILY colchicine 0.6 mg PO BID 3 days fluticasone furoate 100 mcg/actuation (Arnuity Ellipta) 1 inh inhalation DAILY folic acid 1 tab PO DAILY furosemide 40 mg See Protocol PO DAILY losartan 25 mg See Protocol PO BID magnesium oxide 400 mg PO BIDPC 30 days methylprednisolone (Medrol) Take 3 tabs daily for 5 days, 2 tabs daily for 5 days, then remain on 1 tab daily omeprazole 1 cap PO DAILY@0630 spironolactone 12.5 mg (1/2 x 25 mg) PO QAM 90 days thiamine HCl (vitamin B1) 1 tab PO DAILY HPI Comments Details: 48-year-old female with newly diagnosed gout returns for follow-up. After last visit I had started patient on colchicine, allopurinol and Medrol taper. She states that she was doing well terms of her gout. However she was having abdominal bloating. She discontinued all her meds and followed up with her PCP. Soon after she started having multiple recurrent attacks of gout mostly involving her left foot and her right knee. She was admitted to the hospital with right knee swelling, suspicious for septic arthritis, arthrocentesis was consistent with gout, she was discharged on prednisone. A few days later she had another flare-up of her right knee and she went to the emergency room and prescribed colchicine and prednisone. Today she is complaining of right knee pain and swelling. Initial history: This is a 48-year-old female with generalized osteoarthritis and fibromyalgia who presents for gout evaluation. About a month ago patient presented to the emergency room with abrupt onset of left ankle and foot pain and swelling. She went to the emergency room, she was prescribed colchicine without much improvement. She was then prescribed prednisone with improvement. She continues however to have pain and swelling in the left ankle. Patient has history of alcohol misuse and she has been trying to cut down. She continues to have diffuse joint and muscle aches related to her known osteoarthritis of multiple joints and fibromyalgia. She denies history of kidney stones. She denies history similar to current attack. She is unaware of any family history of gout [facility] Medical History Depression Anxiety and depression Lower back pain History of COVID-19 Uncontrolled hypertension Panic attack H/O ETOH abuse Anxiety History of low potassium Breast cancer Hypertension Surgical History History of carpal tunnel release Hx of tubal ligation History of breast lump/mass excision H/O: hysterectomy Family History Mother Heart disease Alzheimers disease Social History Household Members: None Housing: Apartment Housing Other:: 4th floor. No elevator Are you a primary wound care nurse to a significant other at home: No Do you presently have visiting nurse or other home services: Yes (Insights Analyst twice daily) Alcohol intake: former Comment: 1:1 SI Patient Tobacco Use Status: Current someday Tobacco user Tobacco use type: Cigarette Cigarettes Per Day: 2 Years Smoked: 38YRS e-Cigarette/Vaping Use: Never Used Second Hand Smoke Exposure: Yes Advance Directives Date on File: 02/11/22 service: No Current occupational status: disabled Review of Systems [facility] Reports arthralgias and Reports joint swelling Physical Exam Vital Signs: Last Vital Signs Pulse 110 H 08/08/24 14:12 BP 130/80 08/08/24 14:12 Pulse Ox 97 08/08/24 14:12 Oxygen Delivery Method Room Air 08/08/24 14:12 BMI result Body Mass Index 28.2 Const General: cooperative, healthy appearing, in distress and anxious Nutritional Appearance: overweight Orientation/consciousness: patient oriented x3 Limitations: no limitations HEENT Head: Yes normocephalic and Yes atraumatic Mouth: moist mucous membranes Resp Effort & Inspection: normal respiratory effort and able to speak in complete sentences Cardio Rate: regular rate Rhythm: regular rhythm GI Palpation (GI): Soft to palpation and nontender Skin General skin exam: no rashes or lesions noted Neuro General: patient oriented x3 Extrem Other: Few fibromyalgia tender points Normal nailfold capillaroscopy Right knee swelling, warmth and pain with any range of motion Office Procedures Joint Injection/Aspiration Joint Injection/Aspiration Primary Site: right knee Prep: site was prepped using sterile technique and ethochloride spray was applied Injected: 40 mg of, Kenalog, with 1 mL of, 1% plain lidocaine and in the joint Approach Used: medial parapatellar Procedure: The patient tolerated the procedure well Coding Details: With the patient's consent the right knee was prepped with ChloraPrep and alcohol. The skin was anesthetized with 2 cc of 1% lidocaine. The knee was then injected with 40 mg of triamcinolone and 1 cc of I % lidocaine. The patient tolerated the procedure with no immediate adverse effects. 75913 - Large joint Procedure code (CPT) selection complete Assessment & Plan Assessment & Plan (1) Gout: Code(s): M10.9 - Gout, unspecified Category: Medical Qualifiers: Gout site: foot Gout etiology: idiopathic Chronicity: acute Laterality: left Qualified Code(s): M10.072 - Idiopathic gout, left ankle and foot Plan: This is a 48-year-old female with newly diagnosed gout who presents for follow-up. Patient took allopurinol, Medrol taper and colchicine after last visit with improvement of her symptoms however continued on her meds after about one-month due to abdominal bloating. Since then she has been having recurrent gout flare-ups mostly involving the right knee including hospital admission with right knee arthrocentesis. Continues to have a flare-up affecting her right knee, with patient's consent, right knee was injected with Kenalog today Advised patient that colchicine can cause multiple GI side effects. Start colchicine but at 0.6 mg daily Resume allopurinol 100 mg daily Start Medrol taper and stay on Medrol 8 mg daily Continue to avoid alcohol consumption Labs before next visit in 6 weeks Plan I spent 30 minutes reviewing patient's chart, evaluating patient, ordering diagnostic workup, counseling patient and documenting in the chart Orders: Orders AMB Joint Injection/Aspiration Today M10.072 - Idiopathic gout, left ankle and foot Comprehensive Met. Panel 6 Weeks M10.072 - Idiopathic gout, left ankle and foot Medications: Changed From methylprednisolone (Medrol) Take 3 tabs daily for 5 days, 2 tabs daily for 5 days, 1 tab daily for 2 weeks then stop 39 tabs 0RF To methylprednisolone (Medrol) Take 3 tabs daily for 5 days, 2 tabs daily for 5 days, then remain on 1 tab daily 60 tabs 0RF Discontinued prednisone Discontinued Reason: Doctor's Order 60 mg (3 x 20 mg) PO DAILY 5 days 15 tabs 0RF Coding Level of Care Code Est Pt Level 4 (12501) Diagnoses Acute idiopathic gout of left foot M10.07 Gout site: foot Gout etiology: idiopathic Chronicity: acute Laterality: left CPT Codes Coding - Large joint: 58524 - Large joint ([id number])
[2024-08-08 14:12] VITALS: BP 130/80; PULSE 110; O2SAT 97; BMI 28.2
== END 2024-08-08 14:40 | disposition home or self-care (01) ==
PROVIDERS: PCP Family Medicine; Referring Provider Family Medicine; Visit Provider Student in an Organized Health Care Education/Training Program
DX: M10.072 Idiopathic gout, left ankle and foot (principal); M25.561 Pain in right knee
CPT/HCPCS: 20610; 99214

== ENCOUNTER → 2024-08-08 14:00 | Outpatient (BNVA) | payer MEDICAID, SELFPAY | PROVIDERS: PCP Family Medicine; Visit Provider Student in an Organized Health Care Education/Training Program | DX: M10.072 Idiopathic gout, left ankle and foot (principal); M15.9 Polyosteoarthritis, unspecified; M79.7 Fibromyalgia | CPT/HCPCS: 20610; 99212 ==

== ENCOUNTER 2024-08-22 10:20 | Outpatient (AMB) | payer MEDICAID, SELFPAY ==
--- NOTE | 2024-08-22 10:27 | A.OFFVIS_ITS ---
Vital Signs 08/22/24 10:29 Height 5 ft 7 in Weight 180 lb BMI 28.2 Intake Visit Reasons: OV - Bilateral Knee OA - R>L Intake Note: Azra is a 48 year old female who presents today for a follow up of moderate- severe bilateral knee OA, R>L. She has pain with daily activity, is limited in her ADLs, and feels her QOL is diminished. She is unable to use stairs or ambulate without pain, and feels her mental health is suffering. She has failed PT and is unable to take NSAIDs due to Gi upset. At her last visit on 05/25/23 bilateral knees were injected and she was referred referred her to Dr. Spann in Pain Management to discuss some treatment with longer efficacy as she is too young for TKA. She was seen with Zana and had a Sprint device but she did not want to proceed with permanent implant Allergies amoxicillin [AMOXICILLIN] Allergy (Intermediate, Verified 08/22/24 10:28) rash, rash/itching sulfamethoxazole [From BACTRIM] Allergy (Intermediate, Verified 08/22/24 10:28) RASH trimethoprim [From BACTRIM] Allergy (Intermediate, Verified 08/22/24 10:28) RASH hydrocodone [Hydrocodone] Allergy (Mild, Verified 08/22/24 10:28) ITCH ibuprofen [From Motrin] Allergy (Mild, Verified 08/22/24 10:28) UPSET STOMACH latex [Latex] Allergy (Mild, Verified 08/22/24 10:28) ITCH HPI HPI OV - Bilateral Knee OA - R>L: Details: Azra is a 48 year old female who presents today for a follow up of moderate- severe bilateral knee OA, R>L. She has pain with daily activity, is limited in her ADLs, and feels her QOL is diminished. She is unable to use stairs or ambulate without pain, and feels her mental health is suffering. She has failed PT and is unable to take NSAIDs due to Gi upset. At her last visit on 05/25/23 bilateral knees were injected and she was referred referred her to Dr. Spann in Pain Management to discuss some treatment with longer efficacy. She was seen with Zana and had a Sprint device but she did not want to proceed with permanent implant as it was not particularly helpful. She has recently been diagnosed with gout and had to gout flares in her right knee. She is on prednisone now and states that while on the prednisone walking is okay although she can not walk more than 10 minutes without pain. [facility] Medical History Depression Anxiety and depression Lower back pain History of COVID-19 Uncontrolled hypertension Panic attack H/O ETOH abuse Anxiety History of low potassium Breast cancer Hypertension Surgical History History of carpal tunnel release Hx of tubal ligation History of breast lump/mass excision H/O: hysterectomy Family History Mother Heart disease Alzheimers disease Social History Household Members: None Housing: Apartment Housing Other:: 4th floor. No elevator Are you a primary rn progressive care unit to a significant other at home: No Do you presently have visiting nurse or other home services: Yes (Generation Engineer twice daily) Alcohol intake: former Comment: 1:1 SI Patient Tobacco Use Status: Current someday Tobacco user Tobacco use type: Cigarette Cigarettes Per Day: 2 Years Smoked: 38YRS e-Cigarette/Vaping Use: Never Used Second Hand Smoke Exposure: Yes Advance Directives Date on File: 02/11/22 service: No Current occupational status: disabled Physical Exam Vital Signs: BMI result Body Mass Index 28.2 Const General: no acute distress, alert and awake Orientation/consciousness: patient oriented x3 HEENT Head: Yes normocephalic and Yes atraumatic Eyes EOM: EOMs intact bilaterally Resp Effort & Inspection: normal respiratory effort and able to speak in complete sentences Cardio Jugular venous distension: no JVD Skin General skin exam: turgor normal Rashes: no rashes Neuro General: patient oriented x3 Extrem Other: Bilateral Knee: TTP MJL Mild effusion Psych Appearance: grossly normal Affect: normal affect Attitude: cooperative Assessment & Plan Assessment & Plan (1) Osteoarthritis of right knee: Code(s): M17.11 - Unilateral primary osteoarthritis, right knee Category: Medical Plan: This is a 48-year-old woman with osteoarthritis of the right knee. She is currently on prednisone in her pain is less but still does not let her walk more than 10 minutes. She has multiple medical comorbidities including cardiac with a history of gout and fibromyalgia. If she can stop prednisone for 3 months and is deemed low risk by her agriculture laboratory technician I think right knee replacement would be beneficial for her. I think it would still be difficult and she is unsure if she wants to go through with it but she seems to be suffering and have a limited ability to walk because of her right knee. I recommend she continue to work with a naval designer to control her gout and to wean her off prednisone a nd I will see her back in 3 months. Coding Level of Care Code Est Pt Level 4 (04677) Diagnoses Osteoarthritis of right knee M17.11
[2024-08-22 10:29] VITALS: BMI 28.2
== END 2024-08-22 10:58 | disposition home or self-care (01) ==
PROVIDERS: PCP Family Medicine; Visit Provider Orthopaedic Surgery
DX: M17.11 Unilateral primary osteoarthritis, right knee (principal)
CPT/HCPCS: 99213

== ENCOUNTER → 2024-08-22 10:20 | Outpatient (BNVA) | payer MEDICAID, SELFPAY | PROVIDERS: PCP Family Medicine; Visit Provider Orthopaedic Surgery | DX: M17.11 Unilateral primary osteoarthritis, right knee (principal) | CPT/HCPCS: 99212 ==

== ENCOUNTER 2024-08-30 09:54 | Outpatient (REF) | payer MEDICAID, SELFPAY ==
[2024-08-30 10:11] LABS: MANUAL DIFF FLAG NO
[2024-08-30 10:58] LABS: Basophils Absolute Auto 0.1 X10*3/uL (0.0-0.2); Basophils Percent Auto 0.5 % (0-2); Eosinophils Absolute Auto 0.1 X10*3/uL (0.0-0.4); Hematocrit 37.7 % (37.0-47.0); Hemoglobin 12.2 g/dl (12.0-16.0); Imm Gran Abs Auto 0.08 X10*3/uL (0.00-0.03); Imm Gran Pct Auto 0.6 % (0.0-0.4); Lymphocytes Absolute Auto 2.8 X10*3/uL (1.2-4.9); Lymphocytes Percent Auto 21.3 % (20-40); Mean Corpuscular HGB Conc 32.4 g/dl (31.0-35.0); Mean Corpuscular Hemoglobin 29.7 pg (27.0-33.0); Mean Corpuscular Volume 91.7 fL (80.0-98.0); Mean Platelet Volume 10.1 fL (9.4-12.3); Monocytes Percent Auto 7.3 % (2-11); Neutrophils Absolute Auto 9.2 x10*3/uL (2.0-8.3); Neutrophils Percent Auto 69.3 % (45-73); Platelet Count 263 X10*3/uL (160-400); Red Blood Count 4.11 X10*6/uL (4.20-5.50); Red Cell Distribution Width 15.1 % (11.0-16.0); White Blood Count 13.3 X10*3/uL (4.8-10.8)
[2024-08-30 11:50] LABS: Alanine Aminotransferase 24 U/L (0-31); Albumin Level 4.4 g/dL (3.5-5.0); Alkaline Phosphatase 64 U/L (39-117); Anion Gap 14 (12-20); Aspartate Amino Transferase 16 U/L (5-31); Bilirubin Total 0.4 mg/dL (0.0-1.0); Blood Urea Nitrogen 39 mg/dL (9-16); Calcium 10.1 mg/dL (8.4-10.2); Carbon Dioxide 26 mmol/L (22-29); Chloride 105 mmol/L (96-108); Estimated Glomerular Filt Rate 58; Glucose Random 114 mg/dL (60-115); Magnesium 1.8 mg/dL (1.6-2.6); Potassium 4.3 mmol/L (3.3-5.1); Sodium 141 mmol/L (135-145); Total Protein 7.2 g/dL (6.5-8.0); Uric Acid 5.9 mg/dL (2.4-5.7)
[2024-09-02 23:27] LABS: Class Alternaria alternata 0; Class Aspergillus fumigatus 0; Class Bermuda Grass 0; Class Birch 0; Class Cat Dander 0; Class Cladosporium herbarum 0; Class Cockroach 0; Class Common Ragweed 0; Class Cottonwood 0; Class Derm. pterony 0; Class Dermatophagoides farinae 0; Class Dog Dander 0; Class Elm 0; Class Maple Box Elder 0; Class Mountain Cedar 0; Class Mouse Urine Protein 0; Class Mugwort 0; Class Oak 0; Class Penicillium crysogenum 0; Class Rough Pigweed 0; Class Sheep Sorrel 0; Class Sycamore 0; Class Timothy Grass 0; Class Walnut Tree 0; Class White Ash 0; Class White Mulberry 0; D001 IgE D pteronyssinus <0.10 kU/L; D002 - IgE D farinae <0.10 kU/L; E001 - IgE Cat Dander <0.10 kU/L; E005 - IgE Dog Dander <0.10 kU/L; E072-IgE Mouse Urine <0.10 kU/L; G002 IgE Bermuda Grass <0.10 kU/L; G006 - IgE Timothy Grass <0.10 kU/L; I006-IgE Cockroach, German <0.10 kU/L; Immunoglobulin E 20 kU/L (<OR=114); M001 IgE Penicillium chrysogen <0.10 kU/L; M002 - IgE Cladosporium herbar <0.10 kU/L; M003 - IgE Aspergillus fumigat <0.10 kU/L; M006 - IgE Alternaria alternat <0.10 kU/L; T001 IgE Maple/Box Elder <0.10 kU/L; T003 IgE Common Silver Birch <0.10 kU/L; T006 - IgE Cedar, Mountain <0.10 kU/L; T007 - IgE Oak, White <0.10 kU/L; T008 IgE Elm, American <0.10 kU/L; T010 - IgE Walnut <0.10 kU/L; T011 - IgE Maple Leaf Sycamore <0.10 kU/L; T014 - IgE Cottonwood <0.10 kU/L; T015 - IgE Ash, White <0.10 kU/L; T070 - IgE White Mulberry <0.10 kU/L; W001 - IgE Ragweed, Short <0.10 kU/L; W006 - IgE Mugwort <0.10 kU/L; W014 IgE Pigweed, Common <0.10 kU/L; W018 IgE Sheep Sorrel <0.10 kU/L
== END 2024-08-30 09:55 | disposition home or self-care (01) ==
LOC: HO.LAB 09:54
PROVIDERS: Absent Provider Family Medicine; PCP Family Medicine; Referring Provider Student in an Organized Health Care Education/Training Program; Visit Provider Nurse Practitioner Family
DX: Z91.09 Other allergy status, other than to drugs and biological substances (principal); E83.42 Hypomagnesemia; M10.9 Gout, unspecified; M10.072 Idiopathic gout, left ankle and foot
CPT/HCPCS: 36415; 80053; 82785; 83735; 84550; 85025; 86003

== ENCOUNTER 2024-08-31 16:01 | Outpatient (REF) | payer MEDICAID, SELFPAY ==
[2024-08-31 10:06] VITALS: PULSE 108; RESP 16; O2SAT 97
--- NOTE | 2024-08-31 16:40 | PFT_ITS ---
Indication: Dyspnea Spirometry [FEV1 to FVC 76%; FEV1 2.1 L; FVC 2.77 L. No significant response to bronchodilators noted. Maximum voluntary ventilation not available.] Lung Volumes [Total lung capacity 71% predicted; expiratory reserve volume 21% predicted] Diffusion Capacity [DLCO 105% predicted] Comparisons [None] Interpretation [There is a restrictive ventilatory defect consistent with mild restrictive lung disease. The patient also has a significantly decreased expiratory reserve volume likely secondary to an elevated BMI. No evidence of obstruction and no significant response to bronchodilators noted. Diffusing capacity is within normal limits. Clinical correlation warranted.] MTDD
== END 2024-08-31 16:02 | disposition home or self-care (01) ==
LOC: HO.RESP 16:01
PROVIDERS: PCP Family Medicine; Visit Provider Nurse Practitioner Family
DX: R06.00 Dyspnea, unspecified (principal)
CPT/HCPCS: 94010; 94640; 94727; 94729

== ENCOUNTER → 2024-08-31 16:40 | Outpatient (BNV) | payer MEDICAID, SELFPAY | PROVIDERS: PCP Family Medicine; Visit Provider Hospitalist | DX: R06.00 Dyspnea, unspecified (principal) | CPT/HCPCS: 94060; 94727; 94729 ==

== ENCOUNTER 2024-09-07 08:44 | Emergency (ER) | payer MEDICAID, SELFPAY ==
--- NOTE | ~2024-09-07 | XR_ITS ---
EXAMINATION: XR CHEST CLINICAL INFORMATION: Shortness of breath COMPARISON: X-ray dated July 06, 2024 TECHNIQUE: 2 views of the chest were obtained. FINDINGS: No consolidation, pleural effusion or pneumothorax. Increased density in the right hemithorax secondary to breast prosthesis. Cardiomediastinal silhouette is normal in size. S-shaped curvature of the thoracic spine. XR/XR chest 2V IMPRESSION: No acute airspace disease. Scoliosis, thoracic spine. Electronically signed by: Waldemar Trejo MD 09/07/2024 09:49 AM SARAH
--- NOTE | 2024-09-07 08:46 | ECG_ITS ---
Test Reason : chest pain Blood Pressure : / mmHG Vent. Rate : 101 BPM Atrial Rate : 101 BPM P-R Int : 168 ms QRS Dur : 078 ms QT Int : 348 ms P-R-T Axes : 068 006 062 degrees QTc Int : 451 ms Sinus tachycardia Otherwise normal ECG When compared with ECG of 06-JUL-2024 16:44, No significant change was found Referred By: Generic ED Physician Electronically Signed By:KENNEDI BOURGEOIS MD
[2024-09-07 09:10] LABS: MANUAL DIFF FLAG NO
[2024-09-07 09:12] LABS: Basophils Percent Auto 0.1 % (0-2); Eosinophils Absolute Auto 0.2 X10*3/uL (0.0-0.4); Eosinophils Percent Auto 2.2 % (0-4); Hematocrit 33.5 % (37.0-47.0); Hemoglobin 11.5 g/dl (12.0-16.0); Imm Gran Abs Auto 0.04 X10*3/uL (0.00-0.03); Imm Gran Pct Auto 0.5 % (0.0-0.4); Lymphocytes Absolute Auto 2.3 X10*3/uL (1.2-4.9); Lymphocytes Percent Auto 27.9 % (20-40); Mean Corpuscular HGB Conc 34.3 g/dl (31.0-35.0); Mean Corpuscular Hemoglobin 30.1 pg (27.0-33.0); Mean Corpuscular Volume 87.7 fL (80.0-98.0); Mean Platelet Volume 9.1 fL (9.4-12.3); Monocytes Absolute Auto 0.6 X10*3/uL (0.1-1.2); Monocytes Percent Auto 6.9 % (2-11); Neutrophils Absolute Auto 5.1 x10*3/uL (2.0-8.3); Neutrophils Percent Auto 62.4 % (45-73); Platelet Count 260 X10*3/uL (160-400); Red Blood Count 3.82 X10*6/uL (4.20-5.50); Red Cell Distribution Width 14.8 % (11.0-16.0); White Blood Count 8.2 X10*3/uL (4.8-10.8)
[2024-09-07 09:14] VITALS: BP 115/74; PULSE 95; RESP 18; TEMP 37.2; O2SAT 99; BMI 28.2
[2024-09-07 09:37] LABS: Anion Gap 15 (12-20); Blood Urea Nitrogen 28 mg/dL (9-16); Calcium 9.6 mg/dL (8.4-10.2); Carbon Dioxide 21 mmol/L (22-29); Chloride 107 mmol/L (96-108); Creatinine Clr Calc Pharmacy 85.9; Estimated Glomerular Filt Rate > 60; Glucose Random 156 mg/dL (60-115); Sodium 139 mmol/L (135-145)
[2024-09-07 09:43] LABS: Troponin-I High Sensitivity 6.1 ng/L (<3.5-17.0)
[2024-09-07 12:41] VITALS: BP 124/90; PULSE 99; RESP 18; TEMP 36.3; O2SAT 99
--- NOTE | 2024-09-07 13:23 | ED.CHESTPAIN ---
HPI - Chest Pain General Chief Complaint: Chest Pain Stated Complaint: Chest tightness/SOB Time Seen by Provider: 09/07/24 13:22 Source: patient Mode of arrival: ambulatory Limitations: no limitations History of Present Illness HPI narrative: This is a 48-year-old woman with a past medical history of alcohol use disorder, CHF, hypertension, GERD, osteoarthritis, breast cancer presents for evaluation dyspnea. Patient reports feeling chest tightness and shortness of breath over the last 3 days. Patient reports difficulty lying flat. She states no exertional symptoms or pleuritic chest pain. She states no syncope. She states no trauma. She states no recent fevers. She states that she has had some mild congestion and dry cough recently last few days as well. She reports having some nausea and couple episodes of loose, nonbloody stools a few days ago as well. She states no melena or hematochezia. She states no urinary symptoms. She states no flank pain or back pain. She reports associated mild gradual onset headache, which she reports it is intermittent. Related Data Home Medications ?Medication ?Instructions ?Recorded ?Confirmed folic acid 1 mg tablet 1 tab PO DAILY 09/30/21 08/30/24 omeprazole 20 mg capsule,delayed 1 cap PO DAILY@0630 09/30/21 08/30/24 release thiamine HCl (vitamin B1) 100 mg 1 tab PO DAILY 09/30/21 08/30/24 tablet cholecalciferol (vitamin D3) 25 1 cap PO DAILY 06/04/22 08/30/24 mcg (1,000 unit) capsule (Vitamin D3) cetirizine 10 mg tablet 10 mg PO DAILY PRN allergies 04/10/24 08/30/24 acetaminophen 500 mg tablet 500 mg PO Q6H PRN fever 07/25/24 08/30/24 albuterol sulfate 90 mcg/actuation 2 puff inhalation Q4H PRN 07/25/24 08/30/24 aerosol inhaler shortness of breath or wheezing allopurinol 100 mg tablet 100 mg PO DAILY 07/25/24 08/30/24 Previous Rx's ?Medication ?Instructions ?Recorded ACL defiance brace #1 ea 07/29/21 magnesium oxide 400 mg (241.3 mg 400 mg PO BIDPC 30 days #60 tabs 10/02/21 magnesium) tablet carvedilol 6.25 mg tablet 6.25 mg PO BID #60 tabs 06/24/24 furosemide 40 mg tablet 40 mg PO DAILY #30 tabs 06/24/24 losartan 25 mg tablet 25 mg PO BID #60 tabs 06/24/24 fluticasone furoate 100 1 inh inhalation DAILY #30 ea 08/01/24 mcg/actuation blister powder for inhalation (Arnuity Ellipta) spironolactone 25 mg tablet 12.5 mg (1/2 x 25 mg) PO QAM 90 08/02/24 days #45 tabs colchicine 0.6 mg capsule 0.6 mg PO BID 3 days #6 caps 08/07/24 Allergies Allergy/AdvReac Type Severity Reaction Status Date / Time amoxicillin [AMOXICILLIN] Allergy Intermediate rash, Verified 09/07/24 09:16 rash/itching sulfamethoxazole Allergy Intermediate RASH Verified 09/07/24 09:16 [From BACTRIM] trimethoprim [From BACTRIM] Allergy Intermediate RASH Verified 09/07/24 09:16 hydrocodone [Hydrocodone] Allergy Mild ITCH Verified 09/07/24 09:16 ibuprofen [From Motrin] Allergy Mild UPSET Verified 09/07/24 09:16 STOMACH latex [Latex] Allergy Mild ITCH Verified 09/07/24 09:16 Review of Systems Review of Systems: ROS as per HPI PMFSH Past Medical History Medical History Depression Anxiety and depression Lower back pain History of COVID-19 Uncontrolled hypertension Panic attack H/O ETOH abuse Anxiety History of low potassium Breast cancer Hypertension Surgical History History of carpal tunnel release Hx of tubal ligation History of breast lump/mass excision H/O: hysterectomy Family History Family History Mother Heart disease Alzheimers disease Social History Social History Household Members: None Housing: Apartment Housing Other:: 4th floor. No elevator Are you a primary career placement specialist to a significant other at home: No Do you presently have visiting nurse or other home services: Yes (Independent Insurance Adjuster twice daily) Alcohol intake: former Comment: 1:1 SI Patient Tobacco Use Status: Current someday Tobacco user Tobacco use type: Cigarette Cigarettes Per Day: 2 Years Smoked: 38YRS e-Cigarette/Vaping Use: Never Used Second Hand Smoke Exposure: Yes Advance Directives: Yes Advance Directives on File: Yes Advance Directives Date on File: 02/11/22 Do you have a plan to hurt others: No Plan Patient : No service: No Current occupational status: disabled Physical Exam Vital Signs: Vital Signs: Last Vital Signs Temp 97.3 F 09/07/24 12:41 Pulse 99 09/07/24 12:41 Resp 18 09/07/24 12:41 BP 124/90 H 09/07/24 12:41 Pulse Ox 99 09/07/24 12:41 O2 Del Method Room Air 09/07/24 12:41 BMI result Body Mass Index 28.2 Gen: NAD, AOx3 HEENT: NCAT, EOMI, normal conjunctiva CV: RRR, no murmurs appreciated, no peripheral pitting edema Pulm: CTAB, no increased work of breathing calf edema/2 DP/erythema, no wheezes, rhonchi or rales GI: Soft, NTND, no rebound, guarding or rigidity Neuro: Grossly non focal MSK: No asymmetrical calf edema/TTP/erythema Medical Decision Making Medical Decision Making [facility] Narrative: Differential diagnosis includes, but is not limited to pneumothorax, viral URI, congestive heart failure exacerbation, pleural effusion. Patient is afebrile and hemodynamically stable on room air. Exam is benign and reassuring. I reviewed and interpreted the patient's labs, EKG and chest x-ray as below which are benign and reassuring. I do not suspect pulmonary embolism given lack of pleuritic chest pain, hypoxia or tachypnea and exam as above is reassuring and not suggestive of deep venous thrombosis to the lower extremities. On re-examination, patient is well-appearing and in no acute distress. ?Patient states symptoms have resolved. ?There is no indication for further emergent evaluation in this otherwise well-appearing patient as above. ?Patient is provided written and verbal instructions, educational materials, recommendations for outpatient follow-up, strict return precautions and teach back is performed. ?Patient states understanding and agreement with plan of care. ?Patient is discharged home in stable and improved condition. Admission/Observation Consideration of admission/observation: Escalation of care including admission/observation considered Lab Data [facility] Lab Attestation statement: I reviewed the patient's lab results. I independently reviewed and the patient's labs including a CBC, metabolic panel and troponin, which are benign and reassuring. 09/07/24 09:06 09/07/24 09:06 Labs: Lab Results 09/07/24 Range/Units 09:06 WBC 8.2 (4.8-10.8) X10*3/uL RBC 3.82 L (4.20-5.50) X10*6/uL Hgb 11.5 L (12.0-16.0) g/dl Hct 33.5 L (37.0-47.0) % MCV 87.7 (80.0-98.0) fL MCH 30.1 (27.0-33.0) pg MCHC 34.3 (31.0-35.0) g/dl RDW 14.8 (11.0-16.0) % Plt Count 260 (160-400) X10*3/uL MPV 9.1 L (9.4-12.3) fL Immature Gran % (Auto) 0.5 H (0.0-0.4) % Neut % (Auto) 62.4 (45-73) % Lymph % (Auto) 27.9 (20-40) % Rock % (Auto) 6.9 (2-11) % Eos % (Auto) 2.2 (0-4) % Baso % (Auto) 0.1 (0-2) % Lymph # (Auto) 2.3 (1.2-4.9) X10*3/uL Rock # (Auto) 0.6 (0.1-1.2) X10*3/uL Eos # (Auto) 0.2 (0.0-0.4) X10*3/uL Baso # (Auto) 0.0 (0.0-0.2) X10*3/uL Abs Immat Gran (auto) 0.04 H (0.00-0.03) X10*3/uL Absolute Neuts (auto) 5.1 (2.0-8.3) x10*3/uL Absolute Nucleated RBC 0.000 (0.0-0.012) X10*3/uL Nucleated RBC % (auto) 0.0 (0.0-0.2) /100WBC Sodium 139 (135-145) mmol/L Potassium 4.0 (3.3-5.1) mmol/L Chloride 107 (96-108) mmol/L Carbon Dioxide 21 L (22-29) mmol/L Anion Gap 15 (12-20) BUN 28 H (9-16) mg/dL Creatinine 0.86 (0.5-1.4) mg/dL Estim Creat Clear Calc 85.9 Estimated GFR > 60 Random Glucose 156 H (60-115) mg/dL Calcium 9.6 (8.4-10.2) mg/dL Troponin I High Sens 6.1 D (<3.5-17.0) ng/L Independent Interpretation I performed an independent interpretation of an: EKG and Plain X-Ray Interpretation: I independently reviewed injury the patient's EKG, which demonstrates a sinus tachycardia at 101 beats per minute, KS 168, QRS 78, QTC 451, no STEMI. I independently reviewed and interpreted the patient's chest x-ray, which demonstrates no focal consolidation, pleural effusion or pneumothorax. Radiology Impression Discussion of test interpretation with radiology: I have reviewed the radiologist's reading. Radiologist Impression: XR/XR chest 2V IMPRESSION: No acute airspace disease. Scoliosis, thoracic spine. Electronically signed by: Waldemar Trejo MD 09/07/2024 09:49 AM EST Dictated By: Waldemar Reeves MD Signed By: <Electronically signed by Waldemar Escobar MD in OV> 09/07/24 0949 Discharge Plan Discharge Clinical Impression: Acute dyspnea Patient Disposition: Home, Self-Care Instructions: Dyspnea (ED) Additional Instructions: You were seen and evaluated in the emergency room. Your vital signs, EKG, blood work and chest x-ray were very reassuring. You were found to be slightly anemic with a hemoglobin of 11.5. Police follow up and discuss this with your primary care doctor. Your glucose level was mildly elevated at 156. Please follow up and discuss this with your primary care doctor. If they have not yet screen to you for diabetes with a hemoglobin A1c, please have them evaluate you for the diabetes. Please call your primary care doctor next 2 days to schedule a follow-up appointment in the next 1 week. Return to the emergency room with any new, concerning or worsening symptoms. Prescriptions: No Action (DME) ACL defiance brace See Rx Instructions .ROUTE .MEDSUPPLY Qty: 1 0RF Rx Instructions: n/a spironolactone 25 mg tablet 12.5 mg PO QAM 90 Days Qty: 45 3RF thiamine HCl (vitamin B1) 100 mg tablet 1 tab PO DAILY omeprazole 20 mg capsule,delayed release(DR/EC) 1 cap PO DAILY@0630 folic acid 1 mg tablet 1 tab PO DAILY magnesium oxide 400 mg (241.3 mg magnesium) Tablet 400 mg PO BIDPC 30 Days Qty: 60 0RF cholecalciferol (vitamin D3) [Vitamin D3] 25 mcg (1,000 unit) capsule 1 cap PO DAILY furosemide 40 mg Tablet 40 mg PO DAILY Qty: 30 0RF Protocol: Hold for SBP< HOLD for SBP < : 90 carvedilol 6.25 mg Tablet 6.25 mg PO BID Qty: 60 0RF Protocol: Hold for SBP/HR < HOLD for SBP < : 90 HOLD for HR < : 60 losartan 25 mg Tablet 25 mg PO BID Qty: 60 0RF Protocol: Hold for SBP< HOLD for SBP < : 90 cetirizine 10 mg tablet 10 mg PO DAILY PRN (Reason: allergies) acetaminophen 500 mg tablet 500 mg PO Q6H PRN (Reason: fever) allopurinol 100 mg tablet 100 mg PO DAILY albuterol sulfate 90 mcg/actuation HFA aerosol inhaler 2 puff inhalation Q4H PRN (Reason: shortness of breath or wheezing) colchicine 0.6 mg capsule 0.6 mg PO BID 3 Days Qty: 6 0RF Arnuity Ellipta 100 mcg/actuation blister with device 1 inh inhalation DAILY Qty: 30 3RF Print Language: Japanese
[2024-09-07 14:11] VITALS: BP 124/90; PULSE 99; RESP 18; TEMP 36.3; O2SAT 99
== END 2024-09-07 14:11 | disposition home or self-care (01) ==
PROVIDERS: Emergency Provider Emergency Medicine; PCP Family Medicine
DX: R06.00 Dyspnea, unspecified (principal); R06.02 Shortness of breath; I10 Essential (primary) hypertension; F17.210 Nicotine dependence, cigarettes, uncomplicated; Z79.899 Other long term (current) drug therapy
CPT/HCPCS: 36415; 71046; 80048; 84484; 85025; 93005; 99283; 99284

== ENCOUNTER → 2024-09-07 08:46 | Outpatient (BNV) | payer MEDICAID, SELFPAY | PROVIDERS: Emergency Provider Emergency Medicine; PCP Family Medicine; Visit Provider Internal Medicine Cardiovascular Disease | DX: R07.9 Chest pain, unspecified (principal); R00.0 Tachycardia, unspecified | CPT/HCPCS: 93010 ==

== ENCOUNTER → 2024-09-07 09:18 | Outpatient (BNV) | payer MEDICAID, SELFPAY | PROVIDERS: PCP Family Medicine; Visit Provider Radiology Diagnostic Radiology | DX: R06.02 Shortness of breath (principal) | CPT/HCPCS: 71046 ==

== ENCOUNTER 2024-09-12 13:38 | Outpatient (AMB) | payer MEDICAID, SELFPAY ==
--- NOTE | 2024-09-12 14:05 | MHC.OFFVIS ---
Vital Signs 09/12/24 14:06 Height 5 ft 7 in Weight 186 lb 4.65 oz BMI 29.2 BP 108/76 Blood Pressure Location Lt brachial Position Sitting Pulse 106 H Pulse Source Pulse Oximeter Pulse Oximetry (%) 98 Oxygen Delivery Method Room Air Intake Visit Reasons: Shortness of breath Allergies amoxicillin [AMOXICILLIN] Allergy (Intermediate, Verified 09/12/24 14:09) rash, rash/itching sulfamethoxazole [From BACTRIM] Allergy (Intermediate, Verified 09/12/24 14:09) RASH trimethoprim [From BACTRIM] Allergy (Intermediate, Verified 09/12/24 14:09) RASH hydrocodone [Hydrocodone] Allergy (Mild, Verified 09/12/24 14:09) ITCH ibuprofen [From Motrin] Allergy (Mild, Verified 09/12/24 14:09) UPSET STOMACH latex [Latex] Allergy (Mild, Verified 09/12/24 14:09) ITCH HPI HPI Shortness of breath: Details: Azra is a pleasant 48 year old female, current minimal smoker, with 10 pack year history, with underlying HTN, CHF , h/o of right breast adenocarcinoma s/p mastectomy/ chemo 2007 and alcohol dependence. She reports progressively worsening dyspnea for the past years with associated chest tightness. Denies cough or wheezing. She has trialed albuterol however develops palpitations and tachycardia. Of note, she has been admitted to [facility] in the past for CHF exacerbation and is now maintained on lasix 40 mg. She reports orthopnea, denies BLE edema. Since the last visit she has been evaluated in the ED for dyspnea however workup unremarkable. She trialed Arnuity however no effect. Today she presents to review PFT results. She is under the care of cardiology and has an upcoming stress test scheduled in October. [facility] Medical History Depression Anxiety and depression Lower back pain History of COVID-19 Uncontrolled hypertension Panic attack H/O ETOH abuse Anxiety History of low potassium Breast cancer Hypertension Surgical History History of carpal tunnel release Hx of tubal ligation History of breast lump/mass excision H/O: hysterectomy Family History Mother Heart disease Alzheimers disease Social History (Updated 09/12/24 @ 14:11 by Shereen Mccauley CMA) Household Members: None Housing: Apartment Housing Other:: 4th floor. No elevator Are you a primary care management coordinator to a significant other at home: No Do you presently have visiting nurse or other home services: Yes ([employer] twice daily) Alcohol intake: former Comment: 1:1 SI Patient Tobacco Use Status: Current someday Tobacco user Tobacco use type: Cigarette Cigarettes Per Day: 4 Years Smoked: 38YRS e-Cigarette/Vaping Use: Never Used Second Hand Smoke Exposure: Yes Advance Directives Date on File: 02/11/22 service: No Current occupational status: disabled Review of Systems Const Denies chills, Denies excessive sweating, Denies fever(s), Denies headache(s) and Denies night sweats Eyes Denies dry eyes, Denies irritation and Denies itchy eyes ENT Reports Normal hearing present, Denies headache(s), Denies nasal congestion, Denies nasal discharge, Denies post nasal drip and Denies sore throat Card Denies chest pain, Denies chest pain at rest, Denies chest pain with activity, Denies claudication, Denies leg edema, Reports dyspnea, Reports dyspnea on exertion and Denies paroxysmal nocturnal dyspnea Resp Denies chest congestion, Denies cough, Denies excessive phlegm production, Denies pain on inspiration, Denies pain with cough, Reports dyspnea, Reports dyspnea on exertion, Denies stridor and Denies wheezing Musc Denies myalgias Neuro Reports Normal hearing present and Denies headache(s) Endo Denies excessive sweating Dominguez/Lymph Denies lymphadenopathy Aller/Immun Denies itchy eyes, Reports seasonal rhinorrhea and Denies wheezing Physical Exam Vital Signs: Last Vital Signs Pulse 106 H 09/12/24 14:06 BP 108/76 09/12/24 14:06 Pulse Ox 98 09/12/24 14:06 Oxygen Delivery Method Room Air 09/12/24 14:06 BMI result Body Mass Index 29.2 Const General: cooperative, healthy appearing, comfortable, no acute distress, well developed and alert Orientation/consciousness: patient oriented x3 Limitations: no limitations HEENT Head: Yes normal to inspection, Yes normocephalic and Yes atraumatic Ears: hearing grossly normal bilaterally and external ears normal Eyes General: appearance normal, both eyes and all related structures Eyelids: Yes eyelids normal Sclerae: sclerae normal EOM: EOMs intact bilaterally Neck Neck: Yes normal visual inspection and Yes no lymphadenopathy Lymphatic: no lymphadenopathy noted Chest Chest palpation & inspection: normal inspection of the chest Resp Effort & Inspection: normal respiratory effort, able to speak in complete sentences, no audible wheezes, no cough, no stridor, not tachypneic, no tripod positioning and no use of accessory muscles Auscultation: clear to auscultation bilaterally Cardio Jugular venous distension: no JVD Rate: regular rate Rhythm: regular rhythm Skin Other: warm, dry General skin exam: no rashes or lesions noted Neuro General: patient oriented x3 Cranial nerves: Yes Normal hearing present Cognition (Neuro): normal cognition Gait exam (Neuro): Normal gait present Extrem General: Yes normal to inspection, Yes capillary refill normal, Yes no clubbing, cyanosis or edema and Yes no pedal edema Psych Appearance: grossly normal and well kempt Speech and movement: Normal speech and movement present and Clear speech present Affect: normal affect Attitude: cooperative Thought process: Normal thought process present Thought content: Normal thought content present Insight: Good insight present (Psych) Judgement: Good judgement present (Psych) Assessment & Plan Assessment & Plan (1) Restrictive ventilatory defect: Code(s): R94.2 - Abnormal results of pulmonary function studies Category: Medical (2) Dyspnea: Code(s): R06.00 - Dyspnea, unspecified Category: Medical (3) Nicotine dependence, cigarettes, uncomplicated: Code(s): F17.210 - Nicotine dependence, cigarettes, uncomplicated Category: Medical Plan Reviewed PFT which revealed a restrictive ventilatory defect consistent with mild restrictive lung disease. The patient also has a significantly decreased expiratory reserve volume likely secondary to an elevated BMI. No evidence of obstruction and no significant response to bronchodilators noted. Prior CXR unremarkable. Will send for chest CT to evaluate for any underlying parenchymal conditions contributing to restrictive defect. At this time, she denies any effect from ICS and developed tachycardia with albuterol, advised to d/c for now. Will follow up after chest CT and stress test ordered by cardiology. All questions were answered and patient is in agreement of plan. Orders: Orders CT chest wo IV con Today R94.2 - Abnormal results of pulmonary function studies Coding Level of Care Code Est Pt Level 4 (84591) Diagnoses Restrictive ventilatory defect R94.2 Dyspnea R06.00 Nicotine dependence, cigarettes, uncomplicated F17.210
[2024-09-12 14:06] VITALS: BP 108/76; PULSE 106; O2SAT 98; BMI 29.2
== END 2024-09-12 14:41 | disposition home or self-care (01) ==
PROVIDERS: PCP Family Medicine; Visit Provider Nurse Practitioner Family
DX: R94.2 Abnormal results of pulmonary function studies (principal); R06.00 Dyspnea, unspecified; F17.210 Nicotine dependence, cigarettes, uncomplicated
CPT/HCPCS: 99214

== ENCOUNTER → 2024-09-12 13:38 | Outpatient (BNVA) | payer MEDICAID, SELFPAY | PROVIDERS: PCP Family Medicine; Visit Provider Nurse Practitioner Family | DX: R94.2 Abnormal results of pulmonary function studies (principal); R06.00 Dyspnea, unspecified; F17.210 Nicotine dependence, cigarettes, uncomplicated | CPT/HCPCS: 99212 ==

== ENCOUNTER 2024-10-20 17:33 | Outpatient (REF) | payer MEDICAID, SELFPAY ==
[2024-10-21 10:22] LABS: Adenovirus PCR Not Detected (Not Detect.); Bordetella parapertussis PCR Not Detected (Not Detect.); Bordetella pertussis PCR Not Detected (Not Detect.); Chlamydia pneumoniae PCR Not Detected (Not Detect.); Coronavirus 229E PCR Not Detected (Not Detect.); Coronavirus HKU1 PCR Not Detected (Not Detect.); Coronavirus NL63 PCR Not Detected (Not Detect.); Coronavirus OC43 PCR Not Detected (Not Detect.); Human metapneumovirus PCR Not Detected (Not Detect.); Influenza A PCR Not Detected (Not Detect.); Influenza B PCR Not Detected (Not Detect.); Mycoplasma pneumoniae PCR Not Detected (Not Detect.); Parainfluenza 1 PCR Not Detected (Not Detect.); Parainfluenza 2 PCR Not Detected (Not Detect.); Parainfluenza 3 PCR Not Detected (Not Detect.); Parainfluenza 4 PCR Not Detected (Not Detect.); RSV PCR Not Detected (Not Detect.); Rhino/Enterovirus PCR Detected (Not Detect.)
[2024-10-21 10:36] LABS: SARS-CoV-2 PCR Not Detected (Not Detect.)
== END 2024-10-20 17:34 | disposition home or self-care (01) ==
LOC: HO.HHCLNP 17:33
PROVIDERS: Visit Provider Nurse Practitioner
DX: R05.9 Cough, unspecified (principal)
CPT/HCPCS: 87633

== ENCOUNTER 2024-10-24 16:42 | Outpatient (REF) | payer MEDICAID, SELFPAY | END 2024-10-24 16:43 | disposition home or self-care (01) | LOC: HO.CT 16:42 | PROVIDERS: PCP Family Medicine; Visit Provider Nurse Practitioner Family | DX: R94.2 Abnormal results of pulmonary function studies (principal) | CPT/HCPCS: 71250 ==

== ENCOUNTER → 2024-10-24 16:44 | Outpatient (BNV) | payer MEDICAID, SELFPAY | PROVIDERS: PCP Family Medicine; Visit Provider Radiology Diagnostic Radiology | DX: R94.2 Abnormal results of pulmonary function studies (principal); R91.1 Solitary pulmonary nodule | CPT/HCPCS: 71250 ==

== ENCOUNTER 2024-10-31 16:46 | Emergency (ER) | payer MEDICAID, SELFPAY ==
--- NOTE | ~2024-10-31 | XR_ITS ---
CLINICAL HISTORY: Chest pain Two views of the chest. COMPARISON: XR chest dated 09/07/24 at 09:29 EST FINDINGS: Right sided breast implant. Normal heart and mediastinal contours. No consolidation. No pleural effusion or pneumothorax. Mild rightward curvature of the lower thoracic spine. No fracture identified. IMPRESSION: 1. No acute cardiopulmonary abnormality. This document has been electronically signed by: Jax Rivera MD on 10/31/2024 18:15:32
--- NOTE | 2024-10-31 16:50 | ECG_ITS ---
Test Reason : CHEST PAIN Blood Pressure : / mmHG Vent. Rate : 109 BPM Atrial Rate : 109 BPM P-R Int : 166 ms QRS Dur : 074 ms QT Int : 350 ms P-R-T Axes : 084 -10 065 degrees QTc Int : 471 ms Sinus tachycardia Minimal voltage criteria for LVH, may be normal variant ( R in aVL ) Inferior infarct , age undetermined Cannot rule out Anterior infarct , age undetermined Abnormal ECG When compared with ECG of 07-SEP-2024 08:51, Nonspecific T wave abnormality, worse in Lateral leads Referred By: Generic ED Physician Electronically Signed By:KENNEDI BOURGEOIS MD
[2024-10-31 16:55] VITALS: BP 119/90; PULSE 105; O2SAT 98
[2024-10-31 17:25] VITALS: BP 112/76; PULSE 108; RESP 20; TEMP 36.2; O2SAT 98; BMI 29.6
--- NOTE | 2024-10-31 17:26 | ED_ITS ---
HPI - General Adult General Chief complaint: Chest Pain Stated complaint: chest pain, nausea tachyacardia Time Seen by Provider: 10/31/24 18:07 Source: patient Limitations: no limitations History of Present Illness ED Provider: Betzy De Leon PA-C HPI narrative: 48-year-old female with a history of cardiomyopathy, heart failure with preserved ejection fraction, alcohol use disorder, tobacco abuse, hypertension, presents with chest pain times a day and a half. Pain over left anterior chest nonradiating. Pain comes and goes. Pain is worse with inspiration and movement. Patient states she is currently under a lot of stress, she thought it might be her anxiety. Associated recent cough and cold symptoms with in the past week. Denies fever. Denies shortness of breath diaphoresis nausea vomiting. Related Data Home Medications ?Medication ?Instructions ?Recorded ?Confirmed folic acid 1 mg tablet 1 tab PO DAILY 09/30/21 08/30/24 omeprazole 20 mg capsule,delayed 1 cap PO DAILY@0630 09/30/21 08/30/24 release thiamine HCl (vitamin B1) 100 mg 1 tab PO DAILY 09/30/21 08/30/24 tablet cholecalciferol (vitamin D3) 25 1 cap PO DAILY 06/04/22 08/30/24 mcg (1,000 unit) capsule (Vitamin D3) cetirizine 10 mg tablet 10 mg PO DAILY PRN allergies 04/10/24 08/30/24 acetaminophen 500 mg tablet 500 mg PO Q6H PRN fever 07/25/24 08/30/24 albuterol sulfate 90 mcg/actuation 2 puff inhalation Q4H PRN 07/25/24 08/30/24 aerosol inhaler shortness of breath or wheezing allopurinol 100 mg tablet 100 mg PO DAILY 07/25/24 08/30/24 Previous Rx's ?Medication ?Instructions ?Recorded ACL defiance brace #1 ea 07/29/21 magnesium oxide 400 mg (241.3 mg 400 mg PO BIDPC 30 days #60 tabs 10/02/21 magnesium) tablet carvedilol 6.25 mg tablet 6.25 mg PO BID #60 tabs 06/24/24 furosemide 40 mg tablet 40 mg PO DAILY #30 tabs 06/24/24 losartan 25 mg tablet 25 mg PO BID #60 tabs 06/24/24 fluticasone furoate 100 1 inh inhalation DAILY #30 ea 08/01/24 mcg/actuation blister powder for inhalation (Arnuity Ellipta) spironolactone 25 mg tablet 12.5 mg (1/2 x 25 mg) PO QAM 90 08/02/24 days #45 tabs colchicine 0.6 mg capsule 0.6 mg PO BID 3 days #6 caps 08/07/24 albuterol sulfate 2.5 mg/3 mL 2.5 mg (3 mL) inhalation Q4-6H PRN 10/21/24 (0.083 %) solution for nebulization shortness of breath or wheezing #90 mL methocarbamol 750 mg tablet 750 mg PO BID PRN pain #6 tabs 10/31/24 Allergies Allergy/AdvReac Type Severity Reaction Status Date / Time amoxicillin [AMOXICILLIN] Allergy Intermediate rash, Verified 10/31/24 17:26 rash/itching sulfamethoxazole Allergy Intermediate RASH Verified 10/31/24 17:26 [From BACTRIM] trimethoprim [From BACTRIM] Allergy Intermediate RASH Verified 10/31/24 17:26 hydrocodone [Hydrocodone] Allergy Mild ITCH Verified 10/31/24 17:26 ibuprofen [From Motrin] Allergy Mild UPSET Verified 10/31/24 17:26 STOMACH latex [Latex] Allergy Mild ITCH Verified 10/31/24 17:26 Review of Systems 2 Review of Systems: Yes all other systems are reviewed and are negative Constitutional: Constitutional: Denies fatigue and Denies fever(s) Cardiovascular: Cardiovascular: Reports chest pain and Denies dyspnea Respiratory: Respiratory: Reports chest congestion, Reports cough and Denies dyspnea Gastrointestinal: Gastrointestinal: Denies nausea and Denies vomiting Endocrine: Endocrine: Denies fatigue [facility] Past Medical History Attestation statement: The following information was validated with the patient. Medical History Depression Anxiety and depression Lower back pain History of COVID-19 Uncontrolled hypertension Panic attack H/O ETOH abuse Anxiety History of low potassium Breast cancer Hypertension Surgical History History of carpal tunnel release Hx of tubal ligation History of breast lump/mass excision H/O: hysterectomy Family History Family History Mother Heart disease Alzheimers disease Social History Social History (Updated 09/12/24 @ 14:11 by Shereen Mccauley [facility]) Household Members: None Housing: Apartment Housing Other:: 4th floor. No elevator Are you a primary personal carer to a significant other at home: No Do you presently have visiting nurse or other home services: Yes (Acid Operator twice daily) Alcohol intake: former Comment: 1:1 SI Patient Tobacco Use Status: Current someday Tobacco user Tobacco use type: Cigarette Cigarettes Per Day: 4 Years Smoked: 38YRS e-Cigarette/Vaping Use: Never Used Second Hand Smoke Exposure: Yes Advance Directives: Yes Advance Directives on File: Yes Advance Directives Date on File: 02/11/22 service: No Current occupational status: disabled Physical Exam ED Vital Signs: Vital Signs - 24 hr 10/31/24 17:25 10/31/24 20:36 Temperature 97.1 F 98.2 F Pulse Rate 108 H 100 Respiratory Rate 20 16 Blood Pressure 112/76 108/71 Pulse Oximetry 98 99 Oxygen Delivery Method Room Air Room Air BMI result Body Mass Index 29.6 Const Other: Alert, well-appearing Orientation/consciousness: patient oriented x3 Chest Other: Pain elicited with deep breath and palpation Resp Effort & Inspection: normal respiratory effort Cardio Other: Normal peripheral perfusion Skin Other: Warm dry no rash Neuro General: patient oriented x3, no focal motor deficits and CN's II-XI intact bilaterally Psych Other: Calm cooperative Course Course Course Narrative: RME, this is a rapid medical exam performed by Ki Allen please refer to primary provider for complete H&P- 48-year-old female past medical history significant for cardiomyopathy heart failure, breast cancer, arthritis presents for evaluation of chest pain with associated palpitations and shortness of breath. Symptoms started couple of days ago. She arrives via EMS and was given aspirin and nitroglycerin EN route. He EKG was performed, plan for labs and a chest x-ray Medical Decision Making Medical Decision Making MDM Narrative: 48-year-old female with a history of cardiomyopathy, heart failure with preserved ejection fraction, alcohol use disorder, tobacco abuse, hypertension, presents with chest pain times a day and a half. Pain over left anterior chest nonradiating. Pain comes and goes. Pain is worse with inspiration and movement. Patient states she is currently under a lot of stress, she thought it might be her anxiety. Associated recent cough and cold symptoms with in the past week. Denies fever. Denies shortness of breath diaphoresis nausea vomiting. Problem: Tobacco abuse, cardiomyopathy, hypertension, age, alcohol abuse History: Per patient I have considered the following differential diagnoses: ACS, chest wall strain, costochondritis, PE, anxiety Plan: Screening labs including a cardiac enzymes EKG and chest x-ray were obtained, the patient does have multiple risk factors for coronary artery disease. Also considering PE, the patient is tachycardic and having pleuritic chest discomfort. We will add a dimer. However, today the patient's presentation is most consistent with chest wall pain. We will give Toradol and methocarbamol. This could also be costochondritis, she has had recent viral syndrome. This could also just be her anxiety , this was herself report. I have independently reviewed the following tests: Labs: No leukocytosis, not anemic, no electrolyte abnormality, Cardiac enzyme x2 flat , dimer less than 150 EKG: Sinus tachycardia, rate of 109, no ischemic changes no ectopy Chest x-ray:IMPRESSION: 1. No acute cardiopulmonary abnormality. This document has been electronically signed by: Jax Rivera MD on 10/31/2024 18:15:32 Lab Data 10/31/24 18:39 10/31/24 18:39 Labs: Lab Results 10/31/24 10/31/24 10/31/24 Range/Units 18:38 18:39 20:13 WBC 9.6 (4.8-10.8) X10*3/uL RBC 3.63 L (4.20-5.50) X10*6/uL Hgb 10.8 L (12.0-16.0) g/dl Hct 32.2 L (37.0-47.0) % MCV 88.7 (80.0-98.0) fL MCH 29.8 (27.0-33.0) pg MCHC 33.5 (31.0-35.0) g/dl RDW 14.6 (11.0-16.0) % Plt Count 294 (160-400) X10*3/uL MPV 9.6 (9.4-12.3) fL Immature Gran % (Auto) 0.4 (0.0-0.4) % Neut % (Auto) 61.8 (45-73) % Lymph % (Auto) 29.0 (20-40) % [place] % (Auto) 6.2 (2-11) % Eos % (Auto) 2.1 (0-4) % Baso % (Auto) 0.5 (0-2) % Lymph # (Auto) 2.8 (1.2-4.9) X10*3/uL [place] # (Auto) 0.6 (0.1-1.2) X10*3/uL Eos # (Auto) 0.2 (0.0-0.4) X10*3/uL Baso # (Auto) 0.1 (0.0-0.2) X10*3/uL Abs Immat Gran (auto) 0.04 H (0.00-0.03) X10*3/uL Absolute Neuts (auto) 5.9 (2.0-8.3) x10*3/uL Absolute Nucleated RBC 0.000 (0.0-0.012) X10*3/uL Nucleated RBC % (auto) 0.0 (0.0-0.2) /100WBC PT 11.6 (10.9-12.4) SEC INR 1.0 (0.9-1.1) D-Dimer High Sensitivty < 150 NG/ML Sodium 143 (135-145) mmol/L Potassium 3.4 (3.3-5.1) mmol/L Chloride 108 (96-108) mmol/L Carbon Dioxide 26 (22-29) mmol/L Anion Gap 12 (12-20) BUN 28 H (9-16) mg/dL Creatinine 1.06 (0.5-1.4) mg/dL Estim Creat Clear Calc 71.4 Estimated GFR 55 Random Glucose 114 (60-115) mg/dL Calcium 8.8 D (8.4-10.2) mg/dL Total Bilirubin 0.2 (0.0-1.0) mg/dL AST 18 (5-31) U/L ALT 18 (0-31) U/L Alkaline Phosphatase 90 (39-117) U/L Troponin I High Sens 7.0 6.9 (<3.5-17.0) ng/L Total Protein 6.9 (6.5-8.0) g/dL Albumin 4.0 (3.5-5.0) g/dL Lipase 58 (8-78) U/L Influenza Type A (PCR) NEGATIVE (Negative) Influenza Type B (PCR) NEGATIVE (Negative) RSV RNA Qual (PCR) NEGATIVE (Negative) SARS-CoV-2 RNA (RT-PCR) NEGATIVE (Negative) Discharge Plan Discharge Clinical Impression: Chest wall pain Patient Disposition: Home, Self-Care Instructions: Noncardiac Chest Pain (ED), Chest Wall Pain (ED) Additional Instructions: All of your screening labs including 2 cardiac enzymes were normal. Again, the cardiac enzymes were normal for you, the actual number can vary from patient to patient. Information on [employer] is inaccurate. There were no concerning changes on her EKG in the chest x-ray is clear. The viral panel was negative as well. Your discomfort is consistent with chest wall discomfort. See home care instructions. Use the methocarbamol as needed for your pain, this is a muscle relaxant, you can not drive or operate machinery while taking the medication. Follow up with your primary care provider as needed. Prescriptions: New methocarbamol 750 mg tablet 750 mg PO BID PRN (Reason: pain) Qty: 6 0RF No Action (DME) ACL defiance brace See Rx Instructions .ROUTE .MEDSUPPLY Qty: 1 0RF Rx Instructions: n/a spironolactone 25 mg tablet 12.5 mg PO QAM 90 Days Qty: 45 3RF albuterol sulfate 2.5 mg /3 mL (0.083 %) solution for nebulization 2.5 mg inhalation Q4-6H PRN (Reason: shortness of breath or wheezing) Qty: 90 1RF thiamine HCl (vitamin B1) 100 mg tablet 1 tab PO DAILY omeprazole 20 mg capsule,delayed release(DR/EC) 1 cap PO DAILY@0630 folic acid 1 mg tablet 1 tab PO DAILY magnesium oxide 400 mg (241.3 mg magnesium) Tablet 400 mg PO BIDPC 30 Days Qty: 60 0RF cholecalciferol (vitamin D3) [Vitamin D3] 25 mcg (1,000 unit) capsule 1 cap PO DAILY furosemide 40 mg Tablet 40 mg PO DAILY Qty: 30 0RF Protocol: Hold for SBP< HOLD for SBP < : 90 carvedilol 6.25 mg Tablet 6.25 mg PO BID Qty: 60 0RF Protocol: Hold for SBP/HR < HOLD for SBP < : 90 HOLD for HR < : 60 losartan 25 mg Tablet 25 mg PO BID Qty: 60 0RF Protocol: Hold for SBP< HOLD for SBP < : 90 cetirizine 10 mg tablet 10 mg PO DAILY PRN (Reason: allergies) acetaminophen 500 mg tablet 500 mg PO Q6H PRN (Reason: fever) allopurinol 100 mg tablet 100 mg PO DAILY albuterol sulfate 90 mcg/actuation HFA aerosol inhaler 2 puff inhalation Q4H PRN (Reason: shortness of breath or wheezing) colchicine 0.6 mg capsule 0.6 mg PO BID 3 Days Qty: 6 0RF Arnuity Ellipta 100 mcg/actuation blister with device 1 inh inhalation DAILY Qty: 30 3RF Print Language: Maori
[2024-10-31 18:43] LABS: MANUAL DIFF FLAG NO
[2024-10-31 18:44] LABS: Basophils Absolute Auto 0.1 X10*3/uL (0.0-0.2); Basophils Percent Auto 0.5 % (0-2); Eosinophils Absolute Auto 0.2 X10*3/uL (0.0-0.4); Eosinophils Percent Auto 2.1 % (0-4); Hematocrit 32.2 % (37.0-47.0); Hemoglobin 10.8 g/dl (12.0-16.0); Imm Gran Abs Auto 0.04 X10*3/uL (0.00-0.03); Imm Gran Pct Auto 0.4 % (0.0-0.4); Lymphocytes Absolute Auto 2.8 X10*3/uL (1.2-4.9); Mean Corpuscular HGB Conc 33.5 g/dl (31.0-35.0); Mean Corpuscular Hemoglobin 29.8 pg (27.0-33.0); Mean Corpuscular Volume 88.7 fL (80.0-98.0); Mean Platelet Volume 9.6 fL (9.4-12.3); Monocytes Absolute Auto 0.6 X10*3/uL (0.1-1.2); Monocytes Percent Auto 6.2 % (2-11); Neutrophils Absolute Auto 5.9 x10*3/uL (2.0-8.3); Neutrophils Percent Auto 61.8 % (45-73); Platelet Count 294 X10*3/uL (160-400); Red Blood Count 3.63 X10*6/uL (4.20-5.50); Red Cell Distribution Width 14.6 % (11.0-16.0); White Blood Count 9.6 X10*3/uL (4.8-10.8)
[2024-10-31 18:50] LABS: Prothrombin Time 11.6 SEC (10.9-12.4)
[2024-10-31 18:57] LABS: Alanine Aminotransferase 18 U/L (0-31); Alkaline Phosphatase 90 U/L (39-117); Anion Gap 12 (12-20); Aspartate Amino Transferase 18 U/L (5-31); Bilirubin Total 0.2 mg/dL (0.0-1.0); Blood Urea Nitrogen 28 mg/dL (9-16); Calcium 8.8 mg/dL (8.4-10.2); Carbon Dioxide 26 mmol/L (22-29); Chloride 108 mmol/L (96-108); Creatinine Clr Calc Pharmacy 71.4; Estimated Glomerular Filt Rate 55; Glucose Random 114 mg/dL (60-115); Lipase 58 U/L (8-78); Potassium 3.4 mmol/L (3.3-5.1); Sodium 143 mmol/L (135-145); Total Protein 6.9 g/dL (6.5-8.0)
[2024-10-31 19:12] LABS: D Dimer High Sensitivity < 150 NG/ML
[2024-10-31 19:26] LABS: Influenza A PCR NEGATIVE (Negative); Influenza B PCR NEGATIVE (Negative); Resp Syncy Virus RNA Qual PCR NEGATIVE (Negative); SARS COV2 PCR INHOUSE NEGATIVE (Negative)
[2024-10-31 20:36] VITALS: BP 108/71; PULSE 100; RESP 16; TEMP 36.8; O2SAT 99
[2024-10-31 20:37] LABS: Troponin-I High Sensitivity 6.9 ng/L (<3.5-17.0)
[2024-10-31] MEDS: Ketorolac Tromethamine 15 MG/ML VIAL IVPUSH (22:56)
[2024-10-31] MEDS: methocarbamoL 750 MG TABLET 1500 MG PO (22:56)
[2024-10-31 23:32] VITALS: BP 123/74; PULSE 100; RESP 16; TEMP -17.7; TEMP 0; O2SAT 98
== END 2024-10-31 23:34 | disposition home or self-care (01) ==
PROVIDERS: Physician Assistant; Physician Assistant Medical; Emergency Provider Emergency Medicine; PCP Family Medicine
DX: R07.89 Other chest pain (principal); R05.9 Cough, unspecified; I42.9 Cardiomyopathy, unspecified; I11.0 Hypertensive heart disease with heart failure; I50.30 Unspecified diastolic (congestive) heart failure; Z79.899 Other long term (current) drug therapy; Z85.3 Personal history of malignant neoplasm of breast; Z03.818 Encounter for observation for suspected exposure to other biological agents ruled out
CPT/HCPCS: 0241U; 36415; 71046; 80053; 83690; 84484; 85025; 85379; 85610; 93005; 96374; 99284; J1885

== ENCOUNTER → 2024-10-31 16:50 | Outpatient (BNV) | payer MEDICAID, SELFPAY | PROVIDERS: Emergency Provider Emergency Medicine; PCP Family Medicine; Visit Provider Internal Medicine Cardiovascular Disease | DX: R07.9 Chest pain, unspecified (principal); R00.0 Tachycardia, unspecified; R94.31 Abnormal electrocardiogram [ECG] [EKG] | CPT/HCPCS: 93010 ==

== ENCOUNTER → 2024-10-31 17:26 | Outpatient (BNV) | payer MEDICAID, SELFPAY | PROVIDERS: Emergency Provider Emergency Medicine; PCP Family Medicine; Visit Provider Radiology Diagnostic Radiology | DX: R07.9 Chest pain, unspecified (principal) | CPT/HCPCS: 71046 ==

== ENCOUNTER 2024-11-08 14:45 | Outpatient (REF) | payer MEDICAID, SELFPAY ==
[2024-11-08 16:12] LABS: MANUAL DIFF FLAG NO
[2024-11-08 16:21] LABS: Basophils Absolute Auto 0.1 X10*3/uL (0.0-0.2); Basophils Percent Auto 0.5 % (0-2); Eosinophils Absolute Auto 0.2 X10*3/uL (0.0-0.4); Hematocrit 36.2 % (37.0-47.0); Hemoglobin 11.9 g/dl (12.0-16.0); Imm Gran Abs Auto 0.04 X10*3/uL (0.00-0.03); Imm Gran Pct Auto 0.4 % (0.0-0.4); Lymphocytes Absolute Auto 2.3 X10*3/uL (1.2-4.9); Lymphocytes Percent Auto 23.5 % (20-40); Mean Corpuscular HGB Conc 32.9 g/dl (31.0-35.0); Mean Corpuscular Hemoglobin 29.8 pg (27.0-33.0); Mean Corpuscular Volume 90.7 fL (80.0-98.0); Mean Platelet Volume 10.6 fL (9.4-12.3); Monocytes Absolute Auto 0.5 X10*3/uL (0.1-1.2); Monocytes Percent Auto 5.4 % (2-11); Neutrophils Absolute Auto 6.6 x10*3/uL (2.0-8.3); Neutrophils Percent Auto 68.2 % (45-73); Platelet Count 354 X10*3/uL (160-400); Red Blood Count 3.99 X10*6/uL (4.20-5.50); Red Cell Distribution Width 14.3 % (11.0-16.0); White Blood Count 9.7 X10*3/uL (4.8-10.8)
[2024-11-08 17:07] LABS: Vitamin B12 499 pg/mL (200-900)
[2024-11-08 18:16] LABS: Alanine Aminotransferase 31 U/L (0-31); Albumin Level 4.3 g/dL (3.5-5.0); Alkaline Phosphatase 85 U/L (39-117); Anion Gap 14 (12-20); Aspartate Amino Transferase 25 U/L (5-31); Bilirubin Total 0.4 mg/dL (0.0-1.0); Blood Urea Nitrogen 22 mg/dL (9-16); Calcium 9.6 mg/dL (8.4-10.2); Carbon Dioxide 27 mmol/L (22-29); Chloride 106 mmol/L (96-108); Estimated Glomerular Filt Rate 59; Ferritin 180 ng/mL (10-250); Glucose Random 128 mg/dL (60-115); Iron 66 mcg/dL (30-160); Percent Iron Saturation 23 % (15-50); Potassium 3.8 mmol/L (3.3-5.1); Sodium 143 mmol/L (135-145); Total Iron Binding Capacity 292 mcg/dL (228-428); Total Protein 7.3 g/dL (6.5-8.0); Unsaturated Iron Binding 226 ug/dL
[2024-11-08 18:30] LABS: Magnesium 1.4 mg/dL (1.6-2.6)
[2024-11-09 19:48] LABS: Immunoglobulin E 17 kU/L (<OR=114)
== END 2024-11-08 14:46 | disposition home or self-care (01) ==
LOC: HO.HHCL 14:45
PROVIDERS: Nurse Practitioner Family; Visit Provider Family Medicine
DX: D50.9 Iron deficiency anemia, unspecified (principal); E83.42 Hypomagnesemia; C50.919 Malignant neoplasm of unspecified site of unspecified female breast; Z91.09 Other allergy status, other than to drugs and biological substances
CPT/HCPCS: 36415; 80053; 82607; 82728; 82785; 83540; 83735; 85025

== ENCOUNTER 2024-11-14 14:21 | Outpatient (AMB) | payer MEDICAID, SELFPAY ==
[2024-11-14 14:26] VITALS: BP 148/84; PULSE 110; O2SAT 99; BMI 30.6
--- NOTE | 2024-11-14 14:26 | MHC.OFFVIS ---
Vital Signs 11/14/24 14:26 Height 5 ft 7 in Weight 195 lb 1.745 oz BMI 30.6 BP 148/84 H Blood Pressure Location Lt brachial Position Sitting Pulse 110 H Pulse Source Pulse Oximeter Pulse Oximetry (%) 99 Oxygen Delivery Method Room Air Intake Visit Reasons: Shortness of breath Courier Delivery Driver Required: No Cyber Engineer: Cyber Engineer offered & declined Accompanied by: Self / Same As Patient Allergies amoxicillin [AMOXICILLIN] Allergy (Intermediate, Verified 11/14/24 14:30) rash, rash/itching sulfamethoxazole [From BACTRIM] Allergy (Intermediate, Verified 11/14/24 14:30) RASH trimethoprim [From BACTRIM] Allergy (Intermediate, Verified 11/14/24 14:30) RASH hydrocodone [Hydrocodone] Allergy (Mild, Verified 11/14/24 14:30) ITCH ibuprofen [From Motrin] Allergy (Mild, Verified 11/14/24 14:30) UPSET STOMACH latex [Latex] Allergy (Mild, Verified 11/14/24 14:30) ITCH Medication List - Last Reconciled 11/14/24 by Sarai Garcia LPN acetaminophen 500 mg PO Q6H PRN [ACL defiance brace n/a] albuterol sulfate 90 mcg/actuation 2 puffs inhalation Q4H PRN albuterol sulfate 2.5 mg (3 mL) inhalation Q4-6H PRN allopurinol 100 mg PO DAILY carvedilol 6.25 mg See Protocol PO BID cetirizine 10 mg PO DAILY PRN cholecalciferol (vitamin D3) (Vitamin D3) 1 cap PO DAILY colchicine 0.6 mg PO BID 3 days fluticasone furoate 100 mcg/actuation (Arnuity Ellipta) 1 inh inhalation DAILY folic acid 1 tab PO DAILY furosemide 40 mg See Protocol PO DAILY losartan 25 mg See Protocol PO BID magnesium oxide 400 mg PO BIDPC 30 days methocarbamol 750 mg PO BID PRN omeprazole 1 cap PO DAILY@0630 spironolactone 12.5 mg (1/2 x 25 mg) PO QAM 90 days thiamine HCl (vitamin B1) 1 tab PO DAILY HPI HPI Shortness of breath: Details: Azra is a pleasant 48 year old female, current minimal smoker, with 10 pack year history, with underlying HTN, CHF , h/o of right breast adenocarcinoma s/p mastectomy/ chemo 2007 and alcohol dependence. She reports progressively worsening dyspnea for the past years with associated chest tightness. Denies cough or wheezing. She has trialed albuterol however develops palpitations and tachycardia. She has been using nebulized albuterol with no issues and moderate effect. She continues to report dyspnea on exertion and chest tightness. Of note, she recently discontinued carvedilol which has improved persistent chest tightness and chest discomfort. She trialed Arnuity however no effect and could not tolerate due to increased chest tightness after use. She is interested in trialing another inhaler. Today she presents to review chest CT. Since the last visit she was evaluated in the ED for ongoing chest discomfort, without significant findings, symptoms attributed to chest wall pain treated with toradol with good effect. Ddimer negative. [facility] Medical History Depression Anxiety and depression Lower back pain History of COVID-19 Uncontrolled hypertension Panic attack H/O ETOH abuse Anxiety History of low potassium Breast cancer Hypertension Surgical History History of carpal tunnel release Hx of tubal ligation History of breast lump/mass excision H/O: hysterectomy Family History Mother Heart disease Alzheimers disease Social History (Updated 11/14/24 @ 14:33 by Sarai Garcia LPN) Household Members: None Housing: Apartment Housing Other:: 4th floor. No elevator Are you a primary personal care home administrator to a significant other at home: No Do you presently have visiting nurse or other home services: Yes (Legislators twice daily) Alcohol intake: former Comment: 1:1 SI Patient Tobacco Use Status: Current someday Tobacco user Tobacco use type: Cigarette Cigarettes Per Day: 5 Years Smoked: 38YRS e-Cigarette/Vaping Use: Never Used Second Hand Smoke Exposure: Yes Advance Directives Date on File: 02/11/22 service: No Current occupational status: disabled Review of Systems Const Denies chills, Denies excessive sweating, Denies fever(s), Denies headache(s) and Denies night sweats Eyes Denies dry eyes, Denies irritation and Denies itchy eyes ENT Reports Normal hearing present, Denies headache(s), Denies nasal congestion, Denies nasal discharge, Denies post nasal drip and Denies sore throat Card Denies chest pain, Denies chest pain at rest, Denies chest pain with activity, Denies claudication, Denies leg edema, Reports dyspnea, Reports dyspnea on exertion and Denies paroxysmal nocturnal dyspnea Resp Denies chest congestion, Denies cough, Denies excessive phlegm production, Denies pain on inspiration, Denies pain with cough, Reports dyspnea, Reports dyspnea on exertion, Denies stridor and Denies wheezing Musc Denies myalgias Neuro Reports Normal hearing present and Denies headache(s) Endo Denies excessive sweating Dominguez/Lymph Denies lymphadenopathy Aller/Immun Denies itchy eyes, Reports seasonal rhinorrhea and Denies wheezing Physical Exam Vital Signs: Last Vital Signs Pulse 110 H 11/14/24 14:26 BP 148/84 H 11/14/24 14:26 Pulse Ox 99 11/14/24 14:26 Oxygen Delivery Method Room Air 11/14/24 14:26 BMI result Body Mass Index 30.6 Const General: cooperative, healthy appearing, comfortable, no acute distress, well developed and alert Orientation/consciousness: patient oriented x3 Limitations: no limitations HEENT Head: Yes normal to inspection, Yes normocephalic and Yes atraumatic Ears: hearing grossly normal bilaterally and external ears normal Eyes General: appearance normal, both eyes and all related structures Eyelids: Yes eyelids normal Sclerae: sclerae normal EOM: EOMs intact bilaterally Neck Neck: Yes normal visual inspection and Yes no lymphadenopathy Lymphatic: no lymphadenopathy noted Chest Chest palpation & inspection: normal inspection of the chest Resp Effort & Inspection: normal respiratory effort, able to speak in complete sentences, no audible wheezes, no cough, no stridor, not tachypneic, no tripod positioning and no use of accessory muscles Auscultation: clear to auscultation bilaterally Cardio Jugular venous distension: no JVD Rate: regular rate Rhythm: regular rhythm Skin Other: warm, dry General skin exam: no rashes or lesions noted Neuro General: patient oriented x3 Cranial nerves: Yes Normal hearing present Cognition (Neuro): normal cognition Gait exam (Neuro): Normal gait present Extrem General: Yes normal to inspection, Yes capillary refill normal, Yes no clubbing, cyanosis or edema and Yes no pedal edema Psych Appearance: grossly normal and well kempt Speech and movement: Normal speech and movement present and Clear speech present Affect: normal affect Attitude: cooperative Thought process: Normal thought process present Thought content: Normal thought content present Insight: Good insight present (Psych) Judgement: Good judgement present (Psych) Assessment & Plan Assessment & Plan (1) Chronic bronchitis: Code(s): J42 - Unspecified chronic bronchitis Category: Medical (2) Restrictive ventilatory defect: Code(s): R94.2 - Abnormal results of pulmonary function studies Category: Medical (3) Dyspnea: Code(s): R06.00 - Dyspnea, unspecified Category: Medical (4) Nicotine dependence, cigarettes, uncomplicated: Code(s): F17.210 - Nicotine dependence, cigarettes, uncomplicated Category: Medical (5) Multiple pulmonary nodules: Code(s): R91.8 - Other nonspecific abnormal finding of lung field Category: Medical Plan Reviewed chest CT which revealed mild traction bronchiectasis of RML, mild airway thickening suggestive of chronic bronchitis and scattered stable pulmonary nodules, <5mm. Will repeat chest CT in one year to assess stability of nodules. Will trial Advair if unable to tolerate, will continue with nebulized albuterol PRN. Patient recently underwent stress test ordered by cardiology, awaiting results. All questions were answered and patient is in agreement of plan. Will follow up in 6-8 weeks or sooner if needed. Orders: Orders CT chest wo IV con 11 Months R91.8 - Other nonspecific abnormal finding of lung field Medications: New fluticasone propion-salmeterol 115-21 mcg/actuation (Advair HFA) 2 puffs inhalation Q12H 12 grams 3RF Discontinued fluticasone furoate 100 mcg/actuation (Arnuity Ellipta) Discontinued Reason: Patient Completed Course 1 inh inhalation DAILY 30 ea 3RF Coding Level of Care Code Est Pt Level 4 (04231) Diagnoses Chronic bronchitis J42 Restrictive ventilatory defect R94.2 Dyspnea R06.00 Nicotine dependence, cigarettes, uncomplicated F17.210 Multiple pulmonary nodules R91.8
== END 2024-11-14 15:01 | disposition home or self-care (01) ==
PROVIDERS: PCP Family Medicine; Visit Provider Nurse Practitioner Family
DX: J42 Unspecified chronic bronchitis (principal); R94.2 Abnormal results of pulmonary function studies; R06.00 Dyspnea, unspecified; F17.210 Nicotine dependence, cigarettes, uncomplicated; R91.8 Other nonspecific abnormal finding of lung field
CPT/HCPCS: 99214

== ENCOUNTER → 2024-11-14 14:21 | Outpatient (BNVA) | payer MEDICAID, SELFPAY | PROVIDERS: PCP Family Medicine; Visit Provider Nurse Practitioner Family | DX: J42 Unspecified chronic bronchitis (principal); R94.2 Abnormal results of pulmonary function studies; R06.00 Dyspnea, unspecified; R91.8 Other nonspecific abnormal finding of lung field; F17.210 Nicotine dependence, cigarettes, uncomplicated | CPT/HCPCS: 99212 ==

== ENCOUNTER 2024-11-20 22:56 | Emergency (ER) | payer MEDICAID, SELFPAY ==
[2024-11-20 23:01] VITALS: BP 164/98; PULSE 108; O2SAT 98
[2024-11-20 23:13] VITALS: BP 140/88; PULSE 106; RESP 18; TEMP 36.2; O2SAT 100; BMI 30.7
--- NOTE | 2024-11-21 00:33 | ED_ITS ---
HPI - General Adult General Chief complaint: Extremity Problem Stated complaint: knee pain hx yesterday Time Seen by Provider: 11/21/24 00:33 Source: patient and EMS Mode of arrival: EMS Limitations: no limitations History of Present Illness ED Provider: Lina Aviles PA-C HPI narrative: Patient is a 49 year old assigned female at with a history of gout, cardiomyopathy, HFpEF, and HTN presenting to the emergency department today with an acute gout flare of the right knee. Patient states that over the last day her right knee has become swollen, red, and warm - feeling like what she describes as a gout flare. Patient states that she was taking allopurinol but it has not helped. Patient states that she would prefer to be put on a short course of steroids rather than a long one because her disintegrator feeder has been having her on longer courses of steroids intermittently. Patient denies any dizziness, lightheadedness, abdominal pain, nausea, vomiting, fever, chills, blurry vision, double vision, loss of vision, chest pain, difficulty breathing, shortness of breath, back pain, night sweats, pain with urination, increased urinary frequency, increased urinary urgency, blood in her urine or stool, syncope or a near syncopal episode, recent trauma or falls, bowel incontinence, bladder incontinence, or any other complaints at this time. Onset (ago): day(s) (1) Location: right and lower extremity Relieving factors: none Exacerbating factors: movement Associated symptoms: denies other symptoms Treatments prior to arrival: other (Allopurinol without relief) Related Data Home Medications ?Medication ?Instructions ?Recorded ?Confirmed folic acid 1 mg tablet 1 tab PO DAILY 09/30/21 11/14/24 omeprazole 20 mg capsule,delayed 1 cap PO DAILY@0630 09/30/21 11/14/24 release thiamine HCl (vitamin B1) 100 mg 1 tab PO DAILY 09/30/21 11/14/24 tablet cholecalciferol (vitamin D3) 25 1 cap PO DAILY 06/04/22 11/14/24 mcg (1,000 unit) capsule (Vitamin D3) cetirizine 10 mg tablet 10 mg PO DAILY PRN allergies 04/10/24 11/14/24 acetaminophen 500 mg tablet 500 mg PO Q6H PRN fever 07/25/24 11/14/24 albuterol sulfate 90 mcg/actuation 2 puff inhalation Q4H PRN 07/25/24 11/14/24 aerosol inhaler shortness of breath or wheezing allopurinol 100 mg tablet 100 mg PO DAILY 07/25/24 11/14/24 Previous Rx's ?Medication ?Instructions ?Recorded ACL defiance brace #1 ea 07/29/21 magnesium oxide 400 mg (241.3 mg 400 mg PO BIDPC 30 days #60 tabs 10/02/21 magnesium) tablet carvedilol 6.25 mg tablet 6.25 mg PO BID #60 tabs 06/24/24 furosemide 40 mg tablet 40 mg PO DAILY #30 tabs 06/24/24 losartan 25 mg tablet 25 mg PO BID #60 tabs 06/24/24 spironolactone 25 mg tablet 12.5 mg (1/2 x 25 mg) PO QAM 90 08/02/24 days #45 tabs colchicine 0.6 mg capsule 0.6 mg PO BID 3 days #6 caps 08/07/24 methocarbamol 750 mg tablet 750 mg PO BID PRN pain #6 tabs 10/31/24 albuterol sulfate 2.5 mg/3 mL 2.5 mg (3 mL) inhalation Q4-6H PRN 11/11/24 (0.083 %) solution for nebulization shortness of breath or wheezing #90 mL fluticasone propionate 115 2 puff inhalation Q12H #12 grams 11/14/24 mcg-salmeterol 21 mcg/actuation HFA inhaler (Advair HFA) naproxen 500 mg tablet 500 mg PO BID 7 days #14 tabs 11/21/24 prednisone 20 mg tablet 20 mg PO DAILY 7 days #7 tabs 11/21/24 Allergies Allergy/AdvReac Type Severity Reaction Status Date / Time amoxicillin [AMOXICILLIN] Allergy Intermediate rash, Verified 11/20/24 23:14 rash/itching sulfamethoxazole Allergy Intermediate RASH Verified 11/20/24 23:14 [From BACTRIM] trimethoprim [From BACTRIM] Allergy Intermediate RASH Verified 11/20/24 23:14 hydrocodone [Hydrocodone] Allergy Mild ITCH Verified 11/20/24 23:14 ibuprofen [From Motrin] Allergy Mild UPSET Verified 11/20/24 23:14 STOMACH latex [Latex] Allergy Mild ITCH Verified 11/20/24 23:14 Review of Systems Constitutional: Constitutional: Reports no additional constitutional complaints, Denies chills, Denies fever(s) and Denies night sweats Eyes: Eyes: Reports no additional eye complaints, Denies blurry vision, Denies change in vision, Denies diplopia, Denies eye discharge, Denies loss of vision and Denies eye pain ENT: Denies dizziness Cardiovascular: Cardiovascular: Reports no additional cardiovascular complaints, Denies chest pain, Denies lightheadedness, Denies Loss of Consciousness and Denies dyspnea Respiratory: Respiratory: Reports no additional respiratory complaints and Denies dyspnea Gastrointestinal: Gastrointestinal: Reports no additional gastrointestinal complaints, Denies abdominal pain, Denies melena, Denies hematochezia, Denies change in bowel habits and Denies change in stool character Genitourinary: Genitourinary: Denies hematuria, Denies urinary frequency, Denies dysuria, Denies urinary incontinence, Denies urinary hesitancy and Denies urinary urgency Musculoskeletal: Musculoskeletal: Reports no additional musculoskeletal complaints, Denies numbness and Denies tingling Comments: right knee pain, right knee swelling, right knee warmth, right knee redness Neurologic: Denies dizziness, Denies loss of vision, Denies numbness and Denies tingling Psychiatric: Psychiatric: Reports no additional psychiatric complaints Endocrine: Endocrine: Reports no additional endocrine complaints Hematologic/Lymphatic: Hematologic/Lymphatic: Reports no additional hematologic/lymphatic complaints Allergic/Immunologic: Allergic/Immunologic: Reports no additional allergic/immunologic complaints [facility] Past Medical History Attestation statement: The following information was validated with the patient. Source: old records reviewed and nursing notes reviewed Medical History Depression Anxiety and depression Lower back pain History of COVID-19 Uncontrolled hypertension Panic attack H/O ETOH abuse Anxiety History of low potassium Breast cancer Hypertension Surgical History History of carpal tunnel release Hx of tubal ligation History of breast lump/mass excision H/O: hysterectomy Family History Family History Mother Heart disease Alzheimers disease Social History Social History Household Members: None Housing: Apartment Housing Other:: 4th floor. No elevator Are you a primary critical care unit nurse to a significant other at home: No Do you presently have visiting nurse or other home services: Yes (Human Resources Receptionist twice daily) Alcohol intake: former Comment: 1:1 SI Patient Tobacco Use Status: Current someday Tobacco user Tobacco use type: Cigarette Cigarettes Per Day: 5 Years Smoked: 38YRS e-Cigarette/Vaping Use: Never Used Second Hand Smoke Exposure: Yes Advance Directives: Yes Advance Directives on File: Yes Advance Directives Date on File: 02/11/22 Do you have a plan to hurt others: No Plan service: No Current occupational status: disabled Physical Exam ED Vital Signs: Vital Signs - 24 hr 11/20/24 23:13 11/21/24 00:46 Temperature 97.1 F 97.4 F Pulse Rate 106 H 102 H Respiratory Rate 18 18 Blood Pressure 140/88 H 144/93 H Pulse Oximetry 100 99 Oxygen Delivery Method Room Air Room Air BMI result Body Mass Index 30.7 Const General: cooperative, no acute distress, alert and awake Nutritional Appearance: well nourished Orientation/consciousness: patient oriented x3 Limitations: no limitations HENMT Head: Yes normal to inspection and Yes atraumatic Ears: hearing grossly normal bilaterally and external ears normal General nose exam: Normal external nose present, no nasal discharge noted and no epistaxis Face and sinus: Yes normal facial exam, No abrasion and No laceration Mouth: Normal oral and palatal mucosa present, no drooling and no muffled voice Eyes General: appearance normal, both eyes and all related structures Periorbital: periorbital findings normal Eyelids: Yes eyelids normal Conjunctivae: conjunctivae normal Pupils: Equal, round and reactive pupils present EOM: EOMs intact bilaterally Neck Neck: Yes normal visual inspection, Yes full ROM and Yes no lymphadenopathy Chest Chest palpation & inspection: normal inspection of the chest Resp Effort & Inspection: normal respiratory effort and able to speak in complete sentences GI Inspection: Yes normal to inspection Neuro General: patient oriented x3 and moves all extremities Cranial nerves: Yes Equal, round and reactive pupils present Cognition (Neuro): normal cognition Extrem Other: patient's right knee is mildly swollen and erythematous with pain during ROM General: Yes full ROM and Yes capillary refill normal Psych Appearance: grossly normal Mental Status: mental status grossly normal Affect: normal affect Attitude: cooperative Thought process: Normal thought process present Thought content: Normal thought content present Insight: Good insight present (Psych) Medical Decision Making Medical Decision Making MDM Narrative: Patient is a 49 year old assigned female at with a history of gout, cardiomyopathy, HFpEF, and HTN presenting to the emergency department today with an acute gout flare of the right knee. Patient's physical exam was as noted in the physical exam portion of this note. I explained my physical exam findings to the patient. I answered all questions asked by the patient. I stressed the importance of the patient taking her medication as directed (either prescribed or as the over the counter packaging recommends). I stressed the importance of the patient following up with her primary care provider. I stressed the importance of the patient returning to the emergency department immediately if her symptoms were to worsen or if she were to develop any dizziness, shortness of breath, difficulty breathing, chest pain, blurry vision, loss of vision, nausea, vomiting, abdominal pain, fever, chills, back pain, or any other complaints. Patient verbalized agreement and understanding with this treatment plan and discharge. Differential Diagnosis Differential Diagnoses: The differential diagnosis associated with the presentation includes Gout flare Right knee pain Acute on chronic right knee pain Admission/Observation Consideration of admission/observation: Escalation of care including admiss ion/observation considered Patient would have been admitted to the hospital had her clinical presentation warranted hospital admission. Independent Historian Clinical information obtained from an independent historian. History obtained from or confirmed by: EMS (EMS provided additional history and confirmed the history provided by the patient.) Tests considered The following testing was considered but not selected: I considered obtaining a CBC, CMP, ESR, CRP, and right knee x-ray however - given the patient's current clinical presentation, this is not warranted. I discussed this with the patient who verbalized understanding and agreement. Prescription Management I considered prescription management with: Pain Medication (patient prescribed pain medication.) Chronic Conditions Patient?s care impacted by: Hypertension Discharge Plan Discharge Clinical Impression: Gout flare Patient Disposition: Home, Self-Care Instructions: Low Purine Diet (ED), Gout (ED) Additional Instructions: Take your medication as prescribed. As you know - prednisone and NSAIDs can both cause stomach / GI upset - please be mindful of this when taking these medications and be sure to eat with them as well as taking your PPI medication as prescribed. Follow up with your primary care provider. Return to the emergency department immediately if your symptoms worsen or if you develop any dizziness, shortness of breath, difficulty breathing, chest pain, blurry vision, loss of vision, nausea, vomiting, abdominal pain, fever, chills, back pain, or any other complaints. Prescriptions: New prednisone 20 mg tablet 20 mg PO DAILY 7 Days Qty: 7 0RF naproxen 500 mg tablet 500 mg PO BID 7 Days Qty: 14 0RF No Action (DME) ACL defiance brace See Rx Instructions .ROUTE .MEDSUPPLY Qty: 1 0RF Rx Instructions: n/a spironolactone 25 mg tablet 12.5 mg PO QAM 90 Days Qty: 45 3RF albuterol sulfate 2.5 mg /3 mL (0.083 %) solution for nebulization 2.5 mg inhalation Q4-6H PRN (Reason: shortness of breath or wheezing) Qty: 90 1RF thiamine HCl (vitamin B1) 100 mg tablet 1 tab PO DAILY omeprazole 20 mg capsule,delayed release(DR/EC) 1 cap PO DAILY@0630 folic acid 1 mg tablet 1 tab PO DAILY magnesium oxide 400 mg (241.3 mg magnesium) Tablet 400 mg PO BIDPC 30 Days Qty: 60 0RF cholecalciferol (vitamin D3) [Vitamin D3] 25 mcg (1,000 unit) capsule 1 cap PO DAILY furosemide 40 mg Tablet 40 mg PO DAILY Qty: 30 0RF Protocol: Hold for SBP< HOLD for SBP < : 90 carvedilol 6.25 mg Tablet 6.25 mg PO BID Qty: 60 0RF Protocol: Hold for SBP/HR < HOLD for SBP < : 90 HOLD for HR < : 60 losartan 25 mg Tablet 25 mg PO BID Qty: 60 0RF Protocol: Hold for SBP< HOLD for SBP < : 90 methocarbamol 750 mg tablet 750 mg PO BID PRN (Reason: pain) Qty: 6 0RF cetirizine 10 mg tablet 10 mg PO DAILY PRN (Reason: allergies) acetaminophen 500 mg tablet 500 mg PO Q6H PRN (Reason: fever) allopurinol 100 mg tablet 100 mg PO DAILY albuterol sulfate 90 mcg/actuation HFA aerosol inhaler 2 puff inhalation Q4H PRN (Reason: shortness of breath or wheezing) colchicine 0.6 mg capsule 0.6 mg PO BID 3 Days Qty: 6 0RF fluticasone propion-salmeterol [Advair HFA] 115-21 mcg/actuation HFA aerosol inhaler 2 puff inhalation Q12H Qty: 12 3RF Referrals: Shereen Latham MD [Primary Care Provider] - Stand Alone Forms: Work/School Release Print Language: Zambian
[2024-11-21 00:46] VITALS: BP 144/93; PULSE 102; RESP 18; TEMP 36.3; O2SAT 99
[2024-11-21] MEDS: methylPREDNISolone Sod Succ 125 MG/2 ML VIAL 60 MG IM (01:11)
[2024-11-21] MEDS: Ketorolac Tromethamine 15 MG/ML VIAL IM (01:11)
--- NOTE | 2024-11-21 01:24 | PC.NURSE ---
Medicated per Dec, reviewed discharge instruction with pt. pt verbalized understanding, no sob or chest pain, no sign of distress, pt wheeled out to lobby awaiting ride home.
[2024-11-21 01:31] VITALS: BP 144/93; PULSE 102; RESP 18; TEMP 36.3; O2SAT 99
== END 2024-11-21 01:32 | disposition home or self-care (01) ==
PROVIDERS: Emergency Provider Emergency Medicine; PCP Family Medicine
DX: M10.9 Gout, unspecified (principal); M25.461 Effusion, right knee; I11.0 Hypertensive heart disease with heart failure; I50.30 Unspecified diastolic (congestive) heart failure
CPT/HCPCS: 96372; 99284; J1885; J2919

== ENCOUNTER 2024-12-06 08:56 | Emergency (ER) | payer MEDICAID, SELFPAY ==
--- NOTE | ~2024-12-06 | CT_ITS ---
EXAMINATION: CT ABDOMEN AND PELVIS WITH CONTRAST CLINICAL INFORMATION: Right lower quadrant abdominal pain COMPARISON: January 02, 2023. TECHNIQUE: Multidetector volumetric images were obtained from the superior aspect of the liver through the pubic symphysis following administration 85 mL of Omnipaque 350 intravenous contrast. Sagittal and coronal reformatted images were obtained on the technologist's workstation. Oral contrast: No This CT examination was performed using dose optimization techniques as appropriate, variously including the following: *Automated exposure control *Adjustment of mA and/or kV according to patient size (this includes techniques or standardized protocols for targeted exams where dose is matched to indication/reason for exam; i.e. extremities or head) *Use of iterative reconstruction technique. DLP: 712 mGy centimeter. FINDINGS: LUNG BASES: No acute airspace disease in the included lungs. LIVER, GALLBLADDER, AND BILIARY TREE: Liver measures 15 cm. No focal lesion. Portal vein, hepatic veins and intrahepatic portion of the IVC are patent. No intrahepatic biliary ductal dilatation. No pericholecystic fluid collection or gallbladder wall thickening. Common bile duct measures 4 mm. PANCREAS: No focal mass. No peripancreatic fluid collection. No main pancreatic ductal dilatation. SPLEEN: 8 cm. No focal mass. ADRENAL GLANDS: No nodular lesions. KIDNEYS AND URETERS: No hydronephrosis. No gross nephrolithiasis. Subcentimeter low density/cystic lesions in the right kidney. BLADDER: Fluid-filled GASTROINTESTINAL TRACT: Appendix is normal. Scattered diverticula throughout the left hemicolon. Abundant stool. No intestinal obstruction pattern. No ascites. No pneumoperitoneum. No pneumatosis intestinalis. ABDOMINAL WALL: Fat-containing umbilical hernia and diastases abdominal rectus muscles. Small fat-containing left inguinal hernia. LYMPH NODES: No gross lymphadenopathy. VASCULAR: Calcified plaques abdominal aorta wall without aneurysm or dissection. PELVIC VISCERA: Absent uterus. OSSEOUS STRUCTURES: No acute fracture or listhesis. Spondylosis at L4-5 and L5-S1. Bony pelvis is intact. Coxofemoral joints are intact with normal alignment. Small pericardial effusion. CT/CT abdomen pelvis w IV con IMPRESSION: Fat-containing umbilical hernia. Diverticular disease, left hemicolon. Appendix is normal. No hydronephrosis. Small pericardial effusion. Fleischner guidelines were followed. Electronically signed by: Waldemar Trejo MD 12/06/2024 01:58 PM EST RP
[2024-12-06 09:04] VITALS: BP 131/93; PULSE 97; O2SAT 98
[2024-12-06 09:12] VITALS: BP 123/93; PULSE 100; RESP 18; TEMP 36.6; O2SAT 97; BMI 31.0
--- OUTSIDE RECORDS SUMMARY | 2024-12-06 09:46 | XMS_ITS | Encounter Summary ---
Author Organization [employer] Address [address] [facility] [address] [place] [address] Care Team Providers Care Replenishment Associate Name Role Phone Shereen Latham MD Primary Care Provider [phone] Nupur Bullock PharmD Unavailable Sury Benitez Unavailable [phone] Nirali Madrid OD Unavailable Li Grande MD Unavailable [phone] Anselmo Gates MD Unavailable Margaret Holman Unavailable Herberth Stokes MD Unavailable [phone] Reason for Visit * Reason Onset Date Comments Nurse Triage 05/25/2024 Encounter Details Date Type Department Care Team (Late st Contact Info) Description 05/25/2024 Telephone [facility] MEDICINE [address] [place], [place] [phone] Shereen Latham MD [address] [place], [place] [phone] Nurse Triage Social History Tobacco Use Types Packs/Day Years Used Date Smoking Tobacco: Some Days Cigarettes Passive Smoke Exposure: Current Smokeless Tobacco: Never Alcohol Use Standard Drinks/Week Comments Never 0 (1 standard drink = 0.6 oz pur e alcohol) Alcohol Answer Date Recorded Frequency of Alcohol Consumption Not on file 04/25/2024 Average Number of Drinks Not on file 024 Frequency of Binge Drinking Not on file 04/03 Score 1 04/25/2024 Depression Answer Date Recorded Patient Health Questionnaire-9 Score 22 05/18/2024 Patient Health Questionnaire-9 Score 22 05/18/2024 Last PHQ-9: Questionnaire Data Not on file 0 05/18/2024 Housing Stability Answer Date Recorded What is your housing situation today? I have housing today, but I am worried about losing housing in the future 01/12/[address] you li ve. Do you have problems with any of the following? None of the above 01/12/2024 Food Insecurity Answer Date Recorded Within the past 12 months, y ou worried that your food would run out before you got money to buy more: Never True 08/19/2023 Within the past 12 months,th e food you bought just didn't last and you didn't have enough money to get more: Never True Transportation Answer Date Recorded In the past 12 months, has l ack of transportation kept you from medical appts, meetings, work or from getting things needed for daily living? Yes, it has kept me from medical appointments or getting medications. 01/12/2024 Utilities Answer Date Recorded In the past 12 months, has t he electric, gas, oil or water company threatened to shut off services in your home? No 08/19/2023 Depression Answer Date Recorded Patient Health Questionnaire-2 Score 6 05/18/2024 Comments Unknown Sex and Gender Information Value Date Recorded Sex Assigned at Female 09/01/2022 10:14 AM EDT Legal Sex Female 10:14 AM EDT Gender Identity Female 09/01/2022 10:14 AM EDT Sexual Orientation Straight 09/01/2022 10 :14 AM EDT documented as of this encounter Miscellaneous Notes * Telephone Encounter - Rox Cervantes RN - 05/25/2024 12:05 PM EDT Triage call Pt reports is being treated for gout with prednisone. Pt seen in [place] 04/25/24 for acuteleft foot gout and prednisone was started for about 9 days then 05/02/24 prednisone was ordered for 14 days for continued left foot acute gout . Pt reports Pt was seen in [place] 05/11/24 for continued leftfoot pain and Pt was seen by spacer type bar and segment, Leta Lunsford MD 05/11/24 also (report is on the chart). Pt had been advised to stop BP med chlorthalidone per spacer type bar and segment [facility] because that particular medication is known to increase uric acid levels. Pt preferred to not start another antihypertensivemed but to monitor BP. Pt calls today with BP of 142/101 prior to medication and after antihypertensive, lisinopril 40mg, BP was 148/104. Pt is concerned that BP is too high due to prednisone. Pt is on last week of prednisone 1 tablet daily for 5 days at this point. Pt is sob while speaking, deniesheadache but, reports some anxiety. Pt is advised to come to [facility] today , open till 8pm, to be seen by provider and have BP checked. Pt does question the accuracy of home BP machine. Pt agrees with this disposition and home care is implemented. Insurance is verified as active. Protocol Used: Blood Pressure - High (Adult) Protocol-Based Disposition: See in Office or Video Visit within 3 Days Video visit not offered Positive Triage Question: * Systolic BP >= 160 OR Diastolic >= 100 * All higher-acuity triage questions were negative Care Advice Discussed: * High Blood Pressure * High Blood Pressure - Lifestyle Modifications * How to Check Your Blood Pressure? * Reasons To Call Back - Headache, blurred vision, difficulty talking, or difficulty walking occurs - Chest pain or difficulty breathing occurs - You want to go into the office for a blood pressure check - You become worse * Telephone Encounter - Elizabeth Castano - 05/25/2024 11:27 AM EDT Symptom: High Blood Pressure - Caller Reports Outcome: Schedule a same-day appointment or talk to a nurse or provider today Reason: Caller denied all higher acuity questions The caller accepted this outcome documented in this encounter Plan of Treatment Upcoming Encounters Date Type Department Care Team (Late st Contact Info) Description 12/07/2024 2:30 PM EST Medication Management [facility] MEDICINE [address] [place] [address] Nupur Bullock, CharleneD [address] [place] [address] 12/29/2024 10:30 AM EST Office Visit [facility] MEDICINE [address] [place] [address] Shereen Latham MD [address] [place] [address] 03/29/2025 2:00 PM EDT Office Visit [facility] ADULT DENTAL [address] [place] [address] Heidi, Jenny [address] [place] [address] documented as of this encounter Visit Diagnoses Not on filedocumented in this encounter Additional Health Concerns Assessment Noted Time PHQ-9 Depression Total Score: 22 024 9:12 AM EDT documented as of this encounter Care Teams Replenishment Associate Relationship Specialty Start Date End Date Shereen Latham MD [address] [place] [address] PCP - General Family Medicine 11/02/18 Nupur Bullock PharmD [address] [place] [address] Pharmacist Internal Medicine 08/09/24 Sury Benitez [address] [place] [address] [address] [place] [id number] Pulmonary Disease 09/27/24 Nirali Madrid OD [address] [place] [address] Optometry 10/27/24 Li Grande MD [address] [place] [address] Hematology and Oncology 10/27/24 Anselmo Gates MD [address] [place] [address] [address] [place] [address] Orthopaedic Surgery 10/27/24 Margaret Holman [address] [place] [address] Cardiology 10/27/24 Herberth Stokes MD [address] [facility] [place] [address] Gastroenterology 10/27/24 Pily Delaney Cryolite Recovery OperatorSolar Photovoltaic Crew Lead 07/22/24 documented as of this encounter
--- OUTSIDE RECORDS SUMMARY | 2024-12-06 09:46 | XMS_ITS | Encounter Summary ---
Author Organization [employer] Address [address] [facility] 7t [place] [address] Care Team Providers Care Dosier Operator Name Role Phone Shereen Latham MD Primary Care Provider [phone] Nupur Bullock PharmD Unavailable Sury Benitez Unavailable [phone] Nirali Madrid OD Unavailable Li Grande MD Unavailable [phone] Anselmo Gates MD Unavailable Margaret Holman Unavailable Herberth Stokes MD Unavailable [phone] Encounter Details Date Type Department Care Team (Late st Contact Info) Description 05/02/2024 Orders Only [facility] MEDICINE [address] [place], [place] [phone] Shereen Latham MD [address] [place], [place] [phone] Gout, unspecified cause, unspecified chronicity, unspecified site (Primary Dx) Social History Tobacco Use Types Packs/Day Years [...] Answer Date Recorded Patient Health Questionnaire-9 Score 23 04/25/2024 Patient Health Questionnaire-9 Score 23 04/25/2024 Last PHQ-9: Questionnaire Data Not on file 0 04/25/2024 Housing Stability Answer Date Recorded What is [...] Date Recorded Patient Health Questionnaire-2 Score 6 04/25/2024 Comments Unknown Sex and Gender Information Value Date Recorded Sex Assigned at Female 09/01/2022 10:14 AM EDT Legal Sex Female 10:14 AM EDT Gender Identity Female 09/01/2022 10:14 AM EDT Sexual Orientation Straight 09/01/2022 10 :14 AM EDT documented as of this encounter Plan of Treatment Upcoming Encounters Date Type Department Care Team (Late st Contact Info) Description 12/07/2024 2:30 PM EST Medication Management [facility] MEDICINE [address] [place] [address] Nupur Bullock, PharmD [address] [place] [address] 12/29/2024 10:30 AM EST Office Visit [facility] MEDICINE [address] [place] [address] Shereen Latham MD [address] [place] [address] 03/29/2025 2:00 PM EDT Office Visit [facility] ADULT DENTAL [address] [place] [address] Jenny Gordon [address] [place] [address] documented as of this encounter Visit Diagnoses Diagnosis Gout, unspecified cause, unspecified chronicity, unspecified site- Primary documented in this encounter Additional Health Concerns Assessment Noted Time PHQ-9 Depression Total Score: 024 1:45 PM EDT documented as of this encounter Care Teams Dosier Operator Relationship Specialty Start Date End Date Shereen Latham MD [address] [place] [address] PCP - General Family Medicine 11/02/18 Nupur Bullock PharmD [address] [place] [address] Pharmacist Internal Medicine 08/09/24 Sury Benitez [address] [place] [address] Dr [facility] [address] [place] [address] Pulmonary Disease 09/27/24 Nirali Madrid OD [address] [place] [address] Optometry 10/27/24 Li Grande MD [address] [place] [address] Hematology and Oncology 10/27/24 Anselmo Gates MD [address] [facility] [address] [place] [address] Orthopaedic Surgery 10/27/24 Margaret Holman [address]rd [place] [address] Cardiology 10/27/24 Hreberth Stokes MD [address] [place] [address] [address] [place] [address] Gastroenterology 10/27/24 Pily Delaney Certified Medical DosimetristNote Teller 07/22/24 documented as of this encounter
--- OUTSIDE RECORDS SUMMARY | 2024-12-06 09:46 | XMS_ITS | Encounter Summary ---
Author Organization [employer] Address 75 [facility] 7t [place] [address] Care Team Providers Care Independent Sales Representative Name Role Phone Shereen Latham MD Primary Care Provider [phone] Nupur Bullock PharmD Unavailable Sury Benitez Unavailable [phone] Nirali Madrid OD Unavailable Li Grande MD Unavailable [phone] Anselmo Gates MD Unavailable Margaret Holman Unavailable Herberth Stokes MD Unavailable [phone] Encounter Details Date Type Department Care Team (Late st Contact Info) Description 04/26/2024 Orders Only [facility] MEDICINE [address] [place], [place] [phone] Junie Damon MD [address] [place], [place] [phone] Social History Tobacco Use Types Packs/Day Years [...] Description 12/07/2024 2:30 PM EST Medication Management [facility] [address] [place] [address] Nupur Bullock, PharmD [address] [place] [address] 12/29/2024 10:30 AM EST Office Visit [facility] [address] [place] [address] Shereen Latham MD 230 [place] [address] 03/29/2025 2:00 PM EDT Office Visit [facility] ADULT DENTAL [address] [place] [address] Jenny Gordon 230 [place] [address] documented as of this encounter Visit Diagnoses Not on filedocumented in this encounter Additional Health Concerns Assessment Noted Time PHQ-9 Depression Total Score: 23 024 1:45 PM EDT documented as of this encounter Care Teams Independent Sales Representative Relationship Specialty Start Date End Date Shereen Latham MD [address] [place] [address] PCP - General Family Medicine 11/02/18 Nupur Bullock, CharleneD [address] [place] [address] Pharmacist Internal Medicine 08/09/24 Sury Benitez [address] [place] [address] [address] [place] [address] Pulmonary Disease 09/27/24 Nirali Madrid OD [address] [place] [address] Optometry 10/27/24 Li Grande MD [address] [place] [address] Hematology and Oncology 10/27/24 Anselmo Gates MD [address] [place] [address] Orthopaedic Surgery 10/27/24 Margaret Holman [address] 3rd [place] [address] Cardiology 10/27/24 Herberth Stokes MD [address] 3rd [place] [address] Gastroenterology 10/27/24 Pily Delaney Make Up ArtistWorm Picker 07/22/24 documented as of this encounter
[2024-12-06 09:47] LABS: MANUAL DIFF FLAG NO
--- OUTSIDE RECORDS SUMMARY | 2024-12-06 09:47 | XMS_ITS | Encounter Summary ---
Author Organization [employer] Address 75 [facility] 7t [place] [address] Care Team Providers Care Travel Sales Consultant Name Role Phone Shereen Latham MD Primary Care Provider Nupur Bullock PharmD Unavailable Sury Benitez Unavailable [phone] Nirali Madrid OD Unavailable Li Grande MD Unavailable [phone] Anselmo Gates MD Unavailable Margaret Holman Unavailable Herberth Stokes MD Unavailable [phone] Encounter Details Date Type Department Care Team (Latest Contact Info) Description 11/09/2024 Travel Social History Tobacco Use Types Packs/Day Years Used Date Smoking Tobacco: Some Days Cigarettes Passive Smoke Exposure: Current Smokeless Tobacco: Never Alcohol Use Standard Drinks/Week Comments Yes 0 (1 standard drink = 0.6 oz pur e alcohol) oca Alcohol Answer Date Recorded Frequency of Alcohol Consumption Not on file 04/25/2024 Average Number of Drinks Not on file 024 Frequency of Binge Drinking Not on file 04/03 Score 1 04/25/2024 Depression Answer Date Recorded Patient Health Questionnaire-9 Score 13 06/07/2024 Patient Health Questionnaire-9 Score 13 06/07/2024 Last PHQ-9: Questionnaire Data Not on file 0 06/07/2024 Housing Stability Answer Date Recorded What is [...] Answer Date Recorded Patient Health Questionnaire-2 Score 3 06/07/2024 Comments No Sex and Gender Information Value Date Recorded Sex Assigned at Female 09/01/2022 10:14 AM EDT Legal Sex Female 10:14 AM EDT Gender Identity Female 09/01/2022 10:14 AM EDT Sexual Orientation Straight 09/01/2022 10 :14 AM EDT documented as of this encounter Plan of Treatment Upcoming Encounters Date Type Department Care Team (Late st Contact Info) Description 12/07/2024 2:30 PM EST Medication Management [facility] [address] [place] [address] Nupur Bullock, PharmD [address] [place] [address] 12/29/2024 10:30 AM EST Office Visit [facility] [address] [place] [address] Shereen Latham MD [address] [place] [address] 03/29/2025 2:00 PM EDT Office Visit [facility] [address] [place] [address], [place] [address] Jenny Godron 230 [place] [address] documented as of this encounter Visit Diagnoses Not on filedocumented in this encounter Additional Health Concerns Assessment Noted Time PHQ-9 Depression Total Score: 13 024 4:53 PM EDT documented as of this encounter Care Teams Travel Sales Consultant Relationship Specialty Start Date End Date Shereen Latham MD 230 [place] [address] PCP - General Family Medicine 11/02/18 Nupur Bullock, CharleneD 230 [place] [address] Pharmacist Internal Medicine 08/09/24 Sury Benitez [address] [place] [address] Dr [facility] 103 [place] [address] Pulmonary Disease 09/27/24 Nirali Madrid, OD 267 [place] [address] Optometry 10/27/24 Li Grande MD 575 [place] [address] Hematology and Oncology 10/27/24 Anselmo Gates MD [address] [place] [address] Orthopaedic Surgery 10/27/24 Margaret Holman [address] 3rd [place] [address] Cardiology 10/27/24 Herberth Stokes MD [address] [place] [address] Gastroenterology 10/27/24 Pily Delaney Drop Machine OperatorHazmat Tanker Driver 07/22/24 documented as of this encounter
--- OUTSIDE RECORDS SUMMARY | 2024-12-06 09:47 | XMS_ITS | Encounter Summary ---
Author Organization [employer] Address 75 [facility] 7t [place] [address] Care Team Providers Care Instrumentation Engineer Name Role Phone Shereen Latham MD Primary Care Provider Nupur Bullock PharmD Unavailable Sury Benitez Unavailable [phone] Nirali Madrid OD Unavailable [phone] Li Grande MD Unavailable [phone] Anselmo Gates MD Unavailable Margaret Holman Unavailable Herberth Stokes MD Unavailable [phone] Reason for Referral * Consultation (Routine) - Closed Specialty Diagnoses / Procedures Referred By Contac t Referred To Contact Obstetrics and Gynecology Diagnoses Vaginal lesion Shereen Latham MD 230 [place] [address] Phone: tel: fax: [facility] [address] 5[address] Floor [address] (Main Hospital Entrance) [place], [place] Phone: tel: fax: Referral ID Status Reason Start Date Expiration Date V isits Requested Visits Authorized [id number] Closed Specialty Services Required 11/28/2024 11/28/2025 9 9 Encounter Details Date Type Department Care Team (Late st Contact Info) Description 11/25/2024 Orders Only [facility] MEDICINE [address] [place] [address] Shereen Latham MD 230 [place] [address] Vaginal lesion (Primary Dx) Social History Tobacco Use Types [...] Description 12/07/2024 2:30 PM EST Medication Management [facility] [address] [place] [address] Nupur Bullock PharmD [address] [place] [address] 12/29/2024 10:30 AM EST Office Visit [facility] [address] [place] [address] Shereen Latham MD [address] [place] [address] 03/29/2025 2:00 PM EDT Office Visit [facility] ADULT DENTAL [address] [place] [address] Heidi, Jenny [address] [place] [address] Scheduled Referrals Name Type Priority Associated Diagnoses Order Schedule Referral to Obstetrics / Gynecology Outpatient Referral Routine Vaginal lesion Expected: 11/25/2024 (Approximate), Expires: 11/25/2025 documented as of this encounter Visit Diagnoses Diagnosis Vaginal lesion- Primary Other specified noninflammatory disorder of vagina documented in this encounter Additional Health Concerns Assessment Noted Time PHQ-9 Depression Total Score: 13 024 4:53 PM EDT documented as of this encounter Care Teams Instrumentation Engineer Relationship Specialty Start Date End Date Shereen Latham MD [address] [place] [address] PCP - General Family Medicine 11/02/18 Nupur Bullock PharmD [address] [place] [address] Pharmacist Internal Medicine 08/09/24 Sury Benitez [address] [facility] [address] [place] [address] Pulmonary Disease 09/27/24 Nirali Madrid OD [address] [place] [address] Optometry 10/27/24 Li Grande MD [address] [place] [address] Hematology and Oncology 10/27/24 Anselmo Gates MD 10 [facility] [address] [place] [address] Orthopaedic Surgery 10/27/24 Margaret Holman 11 [facility] 3rd [place] [address] Cardiology 10/27/24 Herberth Stokes MD 11 [facility] 3rd [place] [address] Gastroenterology 10/27/24 Pily Delaney Shaker Screen OperatorTube Worker 07/22/24 documented as of this encounter
--- OUTSIDE RECORDS SUMMARY | 2024-12-06 09:47 | XMS_ITS | Encounter Summary ---
Author Organization [employer] Address 75 [facility] 7t [place] [address] Care Team Providers Care Tag Press Operator Name Role Phone Shereen Latham MD Primary Care Provider [phone] Nupur Bullock PharmD Unavailable Sury Benitez Unavailable [phone] Nirali Madrid OD Unavailable Li Grande MD Unavailable [phone] Anselmo Gates MD Unavailable Margaret Holman Unavailable Herberth Stokes MD Unavailable [phone] Reason for Visit * Reason Comments Transition Of Care (Tcm) Encounter Details Date Type Department Care Team (Late st Contact Info) Description 11/01/2024 Patient Outreach [facility] MED & PEDS [address] [place], [place] [phone] Shereen Latham MD 230 [place] [address] Transition Of Care (Tcm) Social History Tobacco Use Types Packs/Day Years [...] AM EDT documented as of this encounter Progress Notes * Meghan Devine RN - 11/01/2024 12:52 PM EST 11/01/24 1253 Hospital Discharges and Ad[facility] for [facility] Type of Visit Emergency Department Date of Admission/Visit 10/31/24 Date of Discharge 10/31/24 Facility [facility] Diagnosis CP, Nausea, tachycardia Disposition Discharged Home * Keira Escobar RN - 11/01/2024 12:52 PM EST Transition of Care Note Azra is going through a recent transition of care. Hospital Discharges [facility] Type of Visit: Emergency Department Date of Admission/Visit: 10/31/24 Date of Discharge: 10/31/24 Facility: [facility] Diagnosis: CP, Nausea, tachycardia Disposition: Discharged Home Follow-Up Actions Follow-Up Needed: Provider appointment Follow-Up Outcome: -- (Already booked) Initial Contact Date: 11/07/24 The full discharge summary is available on [facility]. Pt booked for ED follow up 11/09 with PCP Recent Visits Date Type Provider Dept 10/20/24 Office Visit Tari Chance NP [facility] Walk-In Center 08/24/24 Office Visit Shereen Latham MD [facility] Medicine 07/13/24 Office Visit Shereen Latham MD [facility] Medicine 06/29/24 Office Visit Shereen Latham MD [facility] Medicine 06/20/24 Office Visit Abida Lobo MD [facility] Medicine 05/30/24 Office Visit Flor Diaz MD [facility]In [facility] 05/11/24 Office Visit Juan J Kohler MD [facility] 04/25/24 Office Visit Junie [place] MD [facility] 03/30/24 Office Visit Shereen Latham MD [facility] 02/12/24 Office Visit ORLIN Argueta [facility] Medicine Showing recent visits within past 540 days with a meds authorizing provider and meeting all other requirements Future Appointments Date Type Provider Dept 11/09/24 Appointment Shereen Latham MD [facility] Showing future appointments within next 150 days with a meds authorizing provider and meeting all other requirements documented in this encounter Plan of Treatment Upcoming Encounters Date Type Department Care Team (Late st Contact Info) Description 12/07/2024 2:30 PM EST Medication Management [facility] MEDICINE [address] [place] [address] Nupur Bullock, CharleneD [address] [place] [address] 12/29/2024 10:30 AM EST Office Visit [facility] MEDICINE [address] [place] [address] Shereen Latham MD [address] [place] [address] 03/29/2025 2:00 PM EDT Office Visit [facility] ADULT DENTAL 230 [place] [address] Heidi, Jenny [address] [place] [address] documented as of this encounter Visit Diagnoses Not on filedocumented in this encounter Additional Health Concerns Assessment Noted Time PHQ-9 Depression Total Score: 13 024 4:53 PM EDT documented as of this encounter Care Teams Tag Press Operator Relationship Specialty Start Date End Date Shereen Latham MD [address] [place] [address] PCP - General Family Medicine 11/02/18 Nupur Bullock PharmD [address] [place] [address] Pharmacist Internal Medicine 08/09/24 Sury Benitez [address] [place] [address] [address] Pulmonary Disease 09/27/24 Nirali Madrid OD [address] [place] [address] Optometry 10/27/24 Li Grande MD [address] [place] [address] Hematology and Oncology 10/27/24 Anselmo Gates MD [address] [place] [address] Orthopaedic Surgery 10/27/24 Margaret Holman [address] [place] [address] Cardiology 10/27/24 Herberth Stokes MD [address] [place] [address] 3[address] [place] [address] Gastroenterology 10/27/24 Pily Delaney Director Of Retail MarketingDirector Of Corporate Strategy 07/22/24 documented as of this encounter
--- OUTSIDE RECORDS SUMMARY | 2024-12-06 09:47 | XMS_ITS | Encounter Summary ---
Author Organization [employer] Address 75 [facility] 7t [place] [address] Care Team Providers Care Buyer Liaison Name Role Phone Shereen Latham MD Primary Care Provider [phone] Nupur Bullock PharmD Unavailable Sury Benitez Unavailable [phone] Nirali Madrid OD Unavailable Li Grande MD Unavailable [phone] Anselmo Gates MD Unavailable Margaret Holman Unavailable Herberth Stokes MD Unavailable [phone] Reason for Visit * Reason Comments Med Refill Encounter Details Date Type Department Care Team (Late st Contact Info) Description 11/22/[address] [facility] MED & PEDS [address] [place], [place] [phone] Shereen Latham MD 230 [place] [address] Pain Social History Tobacco Use Types Packs/Day Years [...] Description 12/07/2024 2:30 PM EST Medication Management [facility] MEDICINE [address] [place] [address] Nupur Bullock, PharmD 230 [place] [address] 12/29/2024 10:30 AM EST Office Visit [facility] MEDICINE 230 [place] [address] Shereen Latham MD 230 [place] [address] 03/29/2025 2:00 PM EDT Office Visit [facility] ADULT DENTAL [address] [place] [address] Jenny Gordon 230 [place] [address] documented as of this encounter Visit Diagnoses Diagnosis Pain Generalized pain documented in this encounter Additional Health Concerns Assessment Noted Time PHQ-9 Depression Total Score: 13 024 4:53 PM EDT documented as of this encounter Care Teams Buyer Liaison Relationship Specialty Start Date End Date Shereen Latham MD 230 [place] [address] PCP - General Family Medicine 11/02/18 Nupur Bullock, CharleneD 230 [place] [address] Pharmacist Internal Medicine 08/09/24 Sury Benitez [address] [place] [address] Dr [facility] [address] [place] [address] Pulmonary Disease 09/27/24 Nirali Madrid OD [address] [place] [address] Optometry 10/27/24 Li Grande MD [address] [place] [address] Hematology and Oncology 10/27/24 Anselmo Gates MD [address] [place] [address] Orthopaedic Surgery 10/27/24 Margaret Holman [address] 3rd [place] [address] Cardiology 10/27/24 Herberth Stokes MD [address] 3rd [place] [address] Gastroenterology 10/27/24 Pily Delaney Vp SecurityTrenching Machine Operator 07/22/24 documented as of this encounter
--- OUTSIDE RECORDS SUMMARY | 2024-12-06 09:47 | XMS_ITS | Encounter Summary ---
Author Organization [employer] Address 75 [facility] 7t [place] [address] Care Team Providers Care Fast Food Crew Member Name Role Phone Shereen Latham MD Primary Care Provider [phone] Nupur Bullock PharmD Unavailable [phone] Sury Benitez Unavailable [phone] Nirali Madrid OD Unavailable Li Grande MD Unavailable [phone] Anselmo Gates MD Unavailable Margaret Holman Unavailable Herberth Stokes MD Unavailable [phone] Reason for Visit * Consultation (Routine) - Authorized Specialty Diagnoses / Procedures Referred By Contanna t Referred To Contact Pharmacy Diagnoses Benign essential hypertension Shereen Latham MD 230 [place] [address] Phone: tel: fax: Referral ID Status Reason Start Date Expiration Date Visits Requested Visits Authorized [id number] Authorized Consult and Treat 11/11/2024 11/11/2025 6 6 Encounter Details Date Type Department Care Team (Late st Contact Info) Description 11/23/2024 3:30 PM EST Telemedicine [facility] MEDICINE [address] [place] [address] Nupur Bullock, PharmD [address] [place] [address] Benign essential hypertension (Primary Dx) Social History Tobacco Use Types [...] the past 12 months, has t he [employer], gas, oil or water [employer] threatened to shut off services in your [...] as of this encounter Progress Notes * Nupur Bullock PharmD - 11/23/2024 3:30 PM EST Pharmacy Consult Visit Type: CDTM Pharmacist: Nupur Bullock, PharmD Azra Segun is a 49 y.o. year old patient here for follow up visit completed over the phone. Subjective History: General / Intake (updated 11/23/24) Allergies: is allergic to amoxicillin, sulfamethoxazole, trimethoprim, hydrocodone, and latex. Read/Write: Yes, in Turkmen Recent Hospitalizations: Yes 11/21/24 for gout flare Social History as reported by patient: Tobacco: Current 3-4 cigs/day (denies interest in tobacco cessation at this time) Alcohol: reports 3-4 months without alcohol Caffeine: Denies Illicit drugs: Past 4 years ago Diet: Reports non-compliance with diet Exercise: irregularly Adherence / patient self-management Uses medboxes from [facility] pharmacy Reports satisfaction with medboxes Denies missed doses or removing medication Denies JESSICA to current treatment regimen OTC medication, vitamin, supplement use: denies Hypertension Prescribed prednisone and naproxen 11/21/24 in the ED for gout flare Denies currently SMBP as she reports suspicion of accuracy of home BP monitor Pertinent negatives include chest pain, head ache, blurry vision, dizziness Reports anxiety playing a part in HTN; reports currently being around 3-4 months without alcohol Reports previous discontinuation of carvedilol as she felt was worsening anxiety; reports improvement with symptoms since discontinuation Hyperlipidemia Will discuss at follow up visit Per PCP visit concern of alcohol use with start of statin and to revisit in the future Objective History: Treatment history/considerations: PMH: Peripheral neuropathy SOB Palpitations with regular cardiac rhythm Previous CKD Gout Fibromyalgia Anemia Alcohol use disorder (reports one month as of 08/09/24 without) Previous cocaine use (patient denies current use) History of CHF Hypokalemia Hypomagnesemia Major depressive disorder Tobacco dependence Transaminitis Medication: Statin therapy: deferred due to history of binge EtOH and concern of adherence and difficulty getting lab work done, will continue to reassess Carvedilol: reported JESSICA of worsening anxiety Recent labs: Lab Results Component Value Date ALT 31 11/08/2024 AST 25 11/08/2024 LDLCHOLCAL 106 (H) 06/16/2024 TRIG 223 (H) 06/16/2024 K 3.8 11/08/2024 NA 143 11/08/2024 VITB12 499 11/08/2024 MICROALBCREU 9.0 06/16/2024 CREATININE 0.99 11/08/2024 EGFR 59 11/08/2024 HGBA1C 5.5 02/24/2024 HGBA1C 5.9 09/22/2023 HGBA1C 5.6 01/23/2022 Recent blood pressure readings: BP Readings from Last 4 Encounters: 11/17/24 (!) 134/96 11/09/24 (!) 133/97 10/20/24 (!) 135/98 09/28/24 126/78 Pulse Readings from Last 4 Encounters: 11/17/24 103 11/09/24 109 10/20/24 (!) 114 08/24/24 50 Immunizations Due: COVID-19, Influenza (annual), and Shingrix series (age > 50 yo) Will revisit at follow up Preferred Pharmacy: [facility] - [address] 230 [facility] [id number] Assessment/Plan: Hypertension Pharmacotherapy: Furosemide 40mg once daily Losartan 25mg twice daily Spironolactone 12.5mg once daily Goals of Therapy per JNC 8: Achieve BP <140/90mmHg Plan: Continue follow up with team for anxiety symptoms; declined the need for [facility] consult at this time Continue improved medication adherence Provide home BP monitor for further evaluation at upcoming follow up Follow up with CDTM in 2 weeks Education: Reviewed benefits of DASH diet and smoking cessation for improved BP control. Counseling provided to SMBP daily & log results for review in follow up. Reviewed BP goals, patient instructed to call if extremes of BP are noted prior to next scheduled visit. documented in this encounter Plan of Treatment Upcoming Encounters Date Type Department Care Team (Late st Contact Info) Description 12/07/2024 2:30 PM EST Medication Management [facility] MEDICINE [address] [place] [address] Nupur Bullock PharmD [address] [place] [address] 12/29/2024 10:30 AM EST Office Visit [facility] MEDICINE [address] [place] [address] Shereen Latham MD [address] [place] [address] 03/29/2025 2:00 PM EDT Office Visit [facility] ADULT DENTAL [address] [place] [address] Jenny Gordon [address] [place] [address] documented as of this encounter Visit Diagnoses Diagnosis Benign essential hypertension- Primary Essential hypertension, benign documented in this encounter Additional Health Concerns Assessment Noted Time PHQ-9 Depression Total Score: 13 024 4:53 PM EDT documented as of this encounter Care Teams Fast Food Crew Member Relationship Specialty Start Date End Date Shereen Latham MD [address] [place] [address] PCP - General Family Medicine 11/02/18 Nupur Bullock, Pushpa [address] [place] [address] Pharmacist Internal Medicine 08/09/24 Sury Benitez [address] [place] [address] 103 [place] [address] Pulmonary Disease 09/27/24 Nirali Madrid OD [address] [place] [address] Optometry 10/27/24 Li Grande MD [address] [place] [address] Hematology and Oncology 10/27/24 Anselmo Gates MD [address] [facility] [address] [place] [address] Orthopaedic Surgery 10/27/24 Margaret Holman 11 [facility] [address] [place] [address] Cardiology 10/27/24 Herberth Stokes MD 11 [facility] [address] [place] [address] Gastroenterology 10/27/24 Pily Delaney Commercial Sales ConsultantEditing Clerk 07/22/24 documented as of this encounter
--- OUTSIDE RECORDS SUMMARY | 2024-12-06 09:47 | XMS_ITS | Encounter Summary ---
Author Organization [employer] Address [address] [facility] 7t [place] [address] Care Team Providers Care Fly Fishing Guide Name Role Phone Shereen Latham MD Primary Care Provider [phone] Nupur Bullock PharmD Unavailable Sury Benitez Unavailable [phone] Nirali Madrid OD Unavailable [phone] Li Grande MD Unavailable [phone] Anselmo Gates MD Unavailable Margaret Holman Unavailable Herberth Stokes MD Unavailable [phone] Reason for Visit * Reason Comments Hypertension Encounter Details Date Type Department Care Team (Late st Contact Info) Description 11/17/2024 2:40 PM EST Office Visit [facility] [address] [place], [place] [phone] Shereen Latham MD [address] [place], [place] [phone] Benign essential hypertension (Primary Dx); Depression with anxiety Social History Tobacco Use Types Packs/Day Years [...] AM EDT documented as of this encounter Last Filed Vital Signs Vital Sign Reading Time Taken Comments Blood Pressure 134/96 11/17/2024 1:37 PM EST Pulse 103 11/17/2024 1:37 PM EST Temperature 36.1 ??C (97 ??F) 11/17/2024 1:37 PM EST Respiratory Rate 18 11/17/2024 1:37 PM EST Oxygen Saturation 100% 11/17/2024 1:37 PM EST Inhaled Oxygen Concentration - - Weight - - Height - - Body Mass Index - - documented in this encounter Progress Notes * Ariela Read - 11/17/2024 2:40 PM EST Subjective Patient ID: Azra Cast is a 49 y.o. female with PMHx of alcohol use disorder last intake June 04, anemia, breast cancer, essential hypertension, GERD, history of gout recent flares(twice in the past 3 weeks) and congestive heart failure who presents to walk in clinic for Hypertension. Pt reports this morning when she took her BP it was elevated, but she thinks her machine is off. She is asking about her appt with [facility] that she has not gotten a call about it. Pt says she was told to come in to get her BP checked. Review of Systems Constitutional: Negative for fever and unexpected weight change. Respiratory: Negative for shortness of breath. Cardiovascular: Negative for chest pain. Gastrointestinal: Negative for abdominal pain. Genitourinary: Negative for difficulty urinating. Objective Visit Vitals BP (!) 134/96 (BP Location: Right arm, Patient Position: Sitting, BP Cuff Size: Large adult) Pulse 103 Temp 97 ??F (36.1 ??C) (Temporal) Resp 18 There is no height or weight on file to calculate BMI. Physical Exam Constitutional: Appearance: Normal appearance. Cardiovascular: Rate and Rhythm: Normal rate. Pulmonary: Effort: Pulmonary effort is normal. Musculoskeletal: Cervical back: Normal range of motion. Neurological: General: No focal deficit present. Mental Status: She is alert. Psychiatric: Behavior: Behavior normal. Problem List Items Addressed This Visit Benign essential hypertension - Primary -Blood pressure is at goal -Continue lifestyle modifications -Continue current medications - Prescribed spironolactone (Aldactone) 25 MG tablet 11/09/24 Depression with anxiety Denies suicidial or homacidial ideation -No evidence of acute disease process. Suspect faulty BP monitor. -Discussed with Collaborative [facility] Therapy Managment Program with our CharleneDKALA to have appt 11/23/24. -ER precautions discussed. -Seek medical attention for worsening symptoms. I, Ariela Read, am serving as a scribe to document services personally performed by Dr. Suh, based on the patient's response to questions by provider and providers statements to me. documented in this encounter Miscellaneous Notes * Assessment & Plan Note - Ariela Read - 11/17/2024 1:56 PM ESTAssociated Problem(s): Depression with anxiety Denies suicidial or homacidial ideation * Assessment & Plan Note - Ariela Read - 11/17/2024 1:55 PM ESTAssociated Problem(s): Benign essential hypertension -Blood pressure is at goal -Continue lifestyle modifications -Continue current medications - Prescribed spironolactone (Aldactone) 25 MG tablet 11/09/24 documented in this encounter Plan of Treatment Upcoming Encounters Date Type Department Care Team (Late st Contact Info) Description 12/07/2024 2:30 PM EST Medication Management [facility] [address] [place] [address] Nupur Bullock, PharmD [address] [place] [address] 12/29/2024 10:30 AM EST Office Visit [facility] [address] [place] [address] Shereen Latham MD [address] [place] [address] 03/29/2025 2:00 PM EDT Office Visit [facility] [address] [place] [address] Jenny Gordon [address] [place] [address] documented as of this encounter Visit Diagnoses Diagnosis Benign essential hypertension- Primary Essential hypertension, benign Depression with anxiety Dysthymic disorder documented in this encounter Additional Health Concerns Assessment Noted Time PHQ-9 Depression Total Score: 13 08/2 024 4:53 PM EDT documented as of this encounter Care Teams Fly Fishing Guide Relationship Specialty Start Date End Date Shereen Latham MD [address] [place] [address] PCP - General Family Medicine 11/02/18 Nupur Bullock, CharleneD [address] [place] [address] Pharmacist Internal Medicine 08/09/24 Sury Benitez [address] [place] [address] [address] [place] [address] Pulmonary Disease 09/27/24 Nirali Madrid OD [address] [place] [address] Optometry 10/27/24 Li Grande MD [address] [place] [address] Hematology and Oncology 10/27/24 Anselmo Gates MD [address] [facility] [address] [place] [address] Orthopaedic Surgery 10/27/24 Margaret Holman [address] [facility] [address] [place] [address] Cardiology 10/27/24 Herberth Stokes MD [address] [facility] [address] [place] [address] Gastroenterology 10/27/24 Pily Delaney Straight Slicing Machine OperatorRelocation Coordinator 07/22/24 documented as of this encounter
--- OUTSIDE RECORDS SUMMARY | 2024-12-06 09:47 | XMS_ITS | Encounter Summary ---
Author Organization [employer] Address [address] [facility] 7t [place] [address] Care Team Providers Care Guest Services Assistant Name Role Phone Shereen Latham MD Primary Care Provider [phone] Nupur Bullock PharmD Unavailable Sury Benitez Unavailable [phone] Nirali Madrid OD Unavailable Li Grande MD Unavailable [phone] Anselmo Gates MD Unavailable Margaret Holman Unavailable Herberth Stokes MD Unavailable [phone] Reason for Visit * Reason Comments Transition Of Care (Tcm) Encounter Details Date Type Department Care Team (Late st Contact Info) Description 11/22/[address] [facility] [address] [place], [place] [phone] Shereen Latham MD [address] [place], [place] [phone] Transition Of Care (Tcm) Social History Tobacco [...] as of this encounter Progress Notes * Jaki Yadav RN - 11/22/2024 8:51 AM EST 11/22/24 0855 [facility] Type of Visit Emergency Department Date of Admission/Visit 11/21/24 Date of Discharge 11/21/24 Facility [facility] Diagnosis knee pain hx yesterday Disposition Discharged Home * Keira Shawn, RN - 11/22/2024 8:51 AM EST Transition of Care Note Azra is going through a recent transition of care. Hospital Discharges and Admission for [facility] Type of Visit: Emergency Department Date of Admission/Visit: 11/21/24 Date of Discharge: 11/21/24 Facility: [facility] Diagnosis: knee pain hx yesterday Disposition: Discharged Home Follow-Up Actions Follow-Up Needed: None/self-monitoring Follow-Up Outcome: -- (pt to F/U PRN) Initial Contact Date: 11/23/24 Pt with known Dx of gout, given medications for gout flare up at ED. Pt to follow up as needed. The full discharge summary is available on [facility]. Recent Visits Date Type Provider Dept 11/17/24 Office Visit Shereen Latham MD [facility] 11/09/24 Office Visit Shereen Latham MD [facility] Medicine 10/20/24 Office Visit Tari Chance NP [facility] 08/24/24 Office Visit Shereen Latham MD [facility] Medicine 07/13/24 Office Visit Shereen Latham MD [facility] Medicine 06/29/24 Office Visit Shereen Latham MD [facility] Medicine 06/20/24 Office Visit Abida Lobo MD [facility] Medicine 05/30/24 Office Visit Flor Diaz MD [facility] 05/11/24 Office Visit Juan J Kohler MD [facility] [place] 04/25/24 Office Visit Junie Upton MD [facility] Medicine Showing recent visits within past 540 days with a meds authorizing provider and meeting all other requirements Today's Visits Date Type Provider Dept 11/23/24 Appointment Nupur Bullock PharmD [facility] Medicine Showing today's visits with a meds authorizing provider and meeting all other requirements Future Appointments Date Type Provider Dept 12/29/24 Appointment Shereen Latham MD [facility] Medicine Showing future appointments within next 150 days with a meds authorizing provider and meeting all other requirements documented in this encounter Plan of Treatment Upcoming Encounters Date Type Department Care Team (Late st Contact Info) Description 12/07/2024 2:30 PM EST Medication Management [facility] [address] [place] [address] Nupur Bullock PharmD [address] [place] [address] 12/29/2024 10:30 AM EST Office Visit [facility] [address] [place] [address] Shereen Latham MD [address] [place] [address] 03/29/2025 2:00 PM EDT Office Visit [facility] [address] [place] [address] Jeramie Gordonaris [address] [place] [address] documented as of this encounter Visit Diagnoses Not on filedocumented in this encounter Additional Health Concerns Assessment Noted Time PHQ-9 Depression Total Score: 13 024 4:53 PM EDT documented as of this encounter Care Teams Guest Services Assistant Relationship Specialty Start Date End Date Shereen Latham MD [address] [place] [address] PCP - General Family Medicine 11/02/18 Nupur Bullock, CharleneD [address] [place] [address] Pharmacist Internal Medicine 08/09/24 Sury Benitez [address] [place] [address] [place] [address] Pulmonary Disease 09/27/24 Nriali Madrid OD [address] [place] [address] Optometry 10/27/24 Li Grande MD [address] [place] [address] Hematology and Oncology 10/27/24 Anselmo Gates MD [address] [place] [address] Orthopaedic Surgery 10/27/24 Margaret Holman [address] 3rd [place] [address] Cardiology 10/27/24 Herberth Stokes MD [address] [place] [address] Gastroenterology 10/27/24 Pily Delaney Technical Sales ConsultantSystems Support Specialist 07/22/24 documented as of this encounter
--- OUTSIDE RECORDS SUMMARY | 2024-12-06 09:47 | XMS_ITS | Encounter Summary ---
Author Organization [employer] Address [address] [facility] 7t [place] [address] Care Team Providers Care Sharepoint Net Developer Name Role Phone Shereen Latham MD Primary Care Provider Nupur Bullock PharmD Unavailable Sury Benitez Unavailable [phone] Nirali aMdrid OD Unavailable Li Grande MD Unavailable [phone] Anselmo Gates MD Unavailable Margaret Holman Unavailable Herberth Stokes MD Unavailable [phone] Encounter Details Date Type Department Care Team (Latest Contact Info) Description 12/03/2024 Travel Social History Tobacco Use Types Packs/Day [...] Description 12/07/2024 2:30 PM EST Medication Management [facility] [address] [place] [address] Nupur Bullock, PharmD [address] [place] [address] 12/29/2024 10:30 AM EST Office Visit [facility] [address] [place] [address] Shereen Latham MD [address] [place] [address] 03/29/2025 2:00 PM EDT [facility] [address] [place] [address], [place] [address] Jenny Gordon [address] [place] [address] documented as of this encounter Visit Diagnoses Not on filedocumented in this encounter Additional Health Concerns Assessment Noted Time PHQ-9 Depression Total Score: 13 024 4:53 PM EDT documented as of this encounter Care Teams Sharepoint Net Developer Relationship Specialty Start Date End Date Shereen Latham MD [address] [place] [address] PCP - General Family Medicine 11/02/18 Nupur Bullock, CharleneD [address] [place] [address] Pharmacist Internal Medicine 08/09/24 Sury Benitez [address] [place] [address] Dr [facility] [address] [place] [address] Pulmonary Disease 09/27/24 Nirali Madrid, OD [address] [place] [address] Optometry 10/27/24 Li Grande MD [address] [place] [address] Hematology and Oncology 10/27/24 Anselmo Gates MD [address] [place] [address] Orthopaedic Surgery 10/27/24 Margaret Holman [address] 3rd [place] [address] Cardiology 10/27/24 Herberth Stokes MD [address] [place] [address] Gastroenterology 10/27/24 Pily Delaney Oracle Agile Plm ConsultantRegional Branch Manager 07/22/24 documented as of this encounter
--- OUTSIDE RECORDS SUMMARY | 2024-12-06 09:47 | XMS_ITS | Encounter Summary ---
Author Organization [employer] Address [address] [facility] 7t [place] [address] Care Team Providers Care Auditing Clerk Name Role Phone Shereen Latham MD Primary Care Provider [phone] Nupur Bullock PharmD Unavailable [phone] Sury Benitez Unavailable [phone] Nirali Madrid OD Unavailable Li Grande MD Unavailable [phone] Anselmo Gates MD Unavailable Margaret Holman Unavailable Herberth Stokes MD Unavailable [phone] Reason for Visit * Reason Onset Date Comments Referral 11/23/2024 Encounter Details Date Type Department Care Team (Late st Contact Info) Description 11/23/2024 Telephone [facility] [address] [place], [place] [phone] Shereen Latham MD [address] [place], [place] [phone] Referral Social History Tobacco Use Types Packs/Day Years [...] encounter Miscellaneous Notes * Telephone Encounter - Mena Clayton RN - 11/25/2024 3:13 PM EST Telephone call to the pt regarding the previous messages . Pt states she would like a CODING ASSISTANT referral for [facility] as she was seen there over 3 years ago and needs a new referral . States she has been having vaginal lumps like Herpes Simplex . States they come and go . States she would like to have them checked . Pt was advised that once the referral is placed the [facility] will call her with an appt . Pt verbalized understanding ,and agrees with a plan. Will route this message to Dr. Noa boston .TY. * Telephone Encounter - Kishore Demarco - 11/25/2024 2:52 PM EST Tc from pt returning call. * Telephone Encounter - Mena Clayton RN - 11/25/2024 1:55 PM EST Telephone call to regarding the previous message . No answer. Message was left to return call to the [place] team nurses . * Telephone Encounter - Layton Jeff - 11/23/2024 9:40 AM EST Tc from pt requesting a referral to [facility] located in the [facility]. documented in this encounter Plan of Treatment Upcoming Encounters Date Type Department Care Team (Late st Contact Info) Description 12/07/2024 2:30 PM EST Medication Management [facility] [address] [place] [address] Nupur Bullock, CharleneD [address] [place] [address] 12/29/2024 10:30 AM EST Office Visit [facility] [address] [place] [address] Shereen Latham MD [address] [place] [address] 03/29/2025 2:00 PM EDT Office Visit [facility] [address] [place] [address] Jenny Gordon [address] [place] [address] documented as of this encounter Visit Diagnoses Not on filedocumented in this encounter Additional Health Concerns Assessment Noted Time PHQ-9 Depression Total Score: 13 06/07/ 024 4:53 PM EDT documented as of this encounter Care Teams Auditing Clerk Relationship Specialty Start Date End Date Shereen Latham MD [address] [place] [address] PCP - General Family Medicine 11/02/18 Nupur Bullock, CharleneD [address] [place] [address] Pharmacist Internal Medicine 08/09/24 Sury Benitez [address] [place] [address] [address] [facility] [address] [place] [address] Pulmonary Disease 09/27/24 Nirali Madrid, SUSAN [address] [place] [address] Optometry 10/27/24 Li Grande MD [address] [place] [address] Hematology and Oncology 10/27/24 Anselmo Gates MD [address] [facility] [address] [place] [address] Orthopaedic Surgery 10/27/24 Margaret Holman [address] [facility] [address] 3rd [place] [address] Cardiology 10/27/24 Herberth Stokes MD [address] [facility] [address] [facility] [address] 3rd [place] [address] Gastroenterology 10/27/24 Pily Delaney Lead TechnicianCorrectional Maintenance Technician 07/22/24 documented as of this encounter
--- OUTSIDE RECORDS SUMMARY | 2024-12-06 09:47 | XMS_ITS | Encounter Summary ---
Author Organization [employer] Address [address] [facility] 7t [place] [address] Care Team Providers Care Production Control Manager Name Role Phone Shereen Latham MD Primary Care Provider [phone] Nupur Bullock PharmD Unavailable Sury Benitez Unavailable [phone] Nirali Madrid OD Unavailable [phone] Li Grande MD Unavailable [phone] Anselmo Gates MD Unavailable Margaret Holman Unavailable Herberth Stokes MD Unavailable [phone] Encounter Details Date Type Department Care Team (Late st Contact Info) Description 11/08/2024 Telephone [facility] [address] [place], [place] [phone] Laura Cifuentes MD [address] [place], [place] [phone] Social History Tobacco Use Types Packs/Day Years [...] Description 12/07/2024 2:30 PM EST Medication Management [facility] [address] [place] [address] Nupur Bullock, PharmD [address] [place] [address] 12/29/2024 10:30 AM EST Office Visit [facility] [address] [place] [address] Shereen Latham MD [address] [place] [address] 03/29/2025 2:00 PM EDT Office Visit [facility] [address] [place] [address] Jenny Gordon [address] [place] [address] documented as of this encounter Visit Diagnoses Not on filedocumented in this encounter Additional Health Concerns Assessment Noted Time PHQ-9 Depression Total Score: 13 024 4:53 PM EDT documented as of this encounter Care Teams Production Control Manager Relationship Specialty Start Date End Date Shereen Latham MD [address] [place] [address] PCP - General Family Medicine 11/02/18 Nupur Bullock, CharleneD [address] [place] [address] Pharmacist Internal Medicine 08/09/24 Sury Benitez [address] [place] [address] [address] [place] [address] Pulmonary Disease 09/27/24 Nirali Madrid OD [address] [place] [address] Optometry 10/27/24 Li Grande MD [address] [place] [address] Hematology and Oncology 10/27/24 Anselmo Gates MD [address] [place] [address] Orthopaedic Surgery 10/27/24 Margaret Holman [address] 3rd [place] [address] Cardiology 10/27/24 Herberth Stokes MD [address] 3rd [place] [address] Gastroenterology 10/27/24 Pily Delaney Automobile Rental AgentManager Asset 07/22/24 documented as of this encounter
--- OUTSIDE RECORDS SUMMARY | 2024-12-06 09:47 | XMS_ITS | Encounter Summary ---
Author Organization [facility] Address [address] [facility] 7t [place] [address] Care Team Providers Care County Engineer Name Role Phone Shereen Latham MD Primary Care Provider [phone] Nupur Bullock PharmD Unavailable Sury Benitez Unavailable [phone] Nirali Madrid OD Unavailable Li Grande MD Unavailable [phone] Anselmo Gates MD Unavailable Margaret Holman Unavailable Herberth Stokes MD Unavailable [phone] Encounter Details Date Type Department Care Team (Late st Contact Info) Description 11/08/2024 Orders Only [facility] MEDICINE [address] [place], [place] [phone] Shereen Latham MD [address] [place], [place] [phone] Iron deficiency anemia, unspecified iron deficiency anemia type (Primary Dx) Social History Tobacco Use Types [...] Description 12/07/2024 2:30 PM EST Medication Management [facility] MEDICINE [address] [place] [phone] Nupur Bullock, PharmD [address] [place] [address] 12/29/2024 10:30 AM EST Office Visit [facility] MEDICINE [address] [place] [address] Shereen Latham MD [address] [place] [address] 03/29/2025 2:00 PM EDT Office Visit [facility] ADULT DENTAL [address] [place] [address] Jenny Gordon [address] [place] [address] documented as of this encounter Procedures Procedure Name Priority Date/Time Associated Diagnosis Comments CBC WITH AUTO DIFFERENTIAL Routine 11/08/2024 2:48 PM EST Iron deficiency anemia, unspecified iron deficiency anemia type IRON AND TOTAL IRON BINDING CAPACITY Routine 11/08/2024 2:48 PM EST Iron deficiency anemia, unspecified iron deficiency anemia type IMMUNOGLOBULIN E Routine 11/08/2024 2:48 PM EST Iron deficiency anemia, unspecified iron deficiency anemia type FERRITIN Routine 11/08/2024 2:48 PM EST Iron deficiency anemia, unspecified iron deficiency anemia type VITAMIN B12 Routine 11/08/2024 2:48 PM EST Iron deficiency anemia, unspecified iron deficiency anemia type COMPREHENSIVE METABOLIC PANEL Routine 11/08/2024 2:48 PM EST Iron deficiency anemia, unspecified iron deficiency anemia type documented in this encounter Results * Immunoglobulin E (11/08/2024 2:48 PM EST) Immunoglobulin E 17 <WA=115 kU/L [facility] Comment:THIS TEST WAS PERFOR MED AT:[employer] [place] [phone] BRINK MD 11/08/2024 2:48 PM EST 11/08/2024 4:08 PM EST us Generic External Data Provider LAB BLOOD ORDERAB LES Final Result [facility] [address] [place] [address] [phone] * (ABNORMAL) Comprehensive Metabolic Panel (11/08/2024 2:48 PM EST) Pathologist [facility] Sodium 143 135 - 145 mmol/L [facility] Potassium 3.8 3.3 - 5.1 mmol/L [facility] Chloride 106 96 - 108 mmol/L [facility] Carbon Dioxide 27 22 - 29 mmol/L [facility] Anion Gap 14 12 - 20 [facility] Urea Nitrogen (BUN) 22(H) 9 - 16 mg/dL [facility] Creatinine, Serum 0.99 0.5 - 1.4 mg/dL [facility] Estimated Glomerular Filt Rate 59 [facility] Comment:Chronic Kidney Disea se: Estimated GFR < 60 mL/min/[id number] Kidney Disease: Estimated GFR < 15 mL/min/1.73m2 Glucose 128(H) 60 - 115 mg/dL [facility] Calcium 9.6 8.4 - 10.2 mg/dL [facility] Bilirubin, Total 0.4 0.0 - 1.0 mg/dL [facility] Aspartate Amino Transferase 25 5 - 31 U/L [facility] Alanine Aminotransferase 31 0 - 31 U/L [facility] Total Protein 7.3 6.5 - 8.0 g/dL [facility] Albumin Level 4.3 3.5 - 5.0 g/dL [facility] Alkaline Phosphatase 85 39 - 117 U/L [facility] 11/08/2024 2:48 PM EST 11/08/2024 4:08 PM EST us Generic External Data Provider LAB BLOOD ORDERAB LES Final Result [facility] [address] [place] [address] [phone] * Vitamin B12 (11/08/2024 2:48 PM EST) Pathologist [facility] Vitamin B12 499 200 - 900 pg/mL [facility] Comment:NORMAL 200-900 PG/ML INDETERMINATE 160-199 PG/ML DEFICIENT < 160 PG/ML Blood Venous blood specimen / Unknown 11/08/2024 2:48 PM EST 11/08/2024 4:08 PM EST Shereen Latham MD LAB BLOOD ORDERABLES Final Result Performing Organization Address [facility] Co de Phone Number [facility] [address] [place] [phone] * Iron And Total Iron Binding Capacity (11/08/2024 2:48 PM EST) Pathologist [facility] Iron 66 30 - 160 mcg/dL [facility] Total Iron Binding Capacity 292 228 - 428 mcg/dL [facility] Percent Iron Saturation 23 15 - 50 % [facility] Unsaturated Iron Binding 226 ug/dL [facility] Blood Venous blood specimen / Unknown 11/08/2024 2:48 PM EST 11/08/2024 4:08 PM EST Shereen Latham MD LAB BLOOD ORDERABLES Final Result Performing Organization Address [facility] de Phone Number [facility] [address] [place] [phone] * Ferritin (11/08/2024 2:48 PM EST) Pathologist [facility] Ferritin 180 10 - 250 ng/mL [facility] Blood Venous blood specimen / Unknown 11/08/2024 2:48 PM EST 11/08/2024 4:08 PM EST Shereen Latham MD LAB BLOOD ORDERABLES Final Result Performing Organization Address [facility] Co de Phone Number [facility] [address] [place] [phone] * (ABNORMAL) CBC auto differential (11/08/2024 2:48 PM EST) White Blood Count 9.7 4.8 - 10.8 X10*3/uL [facility] Red Blood Count 3.99(L) 4.20 - 5.50 X10*6/uL [facility] Hemoglobin 11.9(L) 12.0 - 16.0 g/dl [facility] Hematocrit 36.2(L) 37.0 - 47.0 % [facility] Mean Corpuscular Volume 90.7 80.0 - 98.0 fL [facility] Mean Corpuscular Hemoglobin 29.8 27.0 - 33.0 pg [facility] Mean Corpuscular HGB Conc 32.9 31.0 - 35.0 g/dl [facility] Red Cell Distribution Width 14.3 11.0 - 16.0 % [facility] Platelet Count 354 160 - 400 X10*3/uL [facility] Mean Platelet Volume 10.6 9.4 - 12.3 fL [facility] Neutrophils Percent Auto 68.2 45 - 73 % [facility] Imm Gran Pct Auto 0.4 0.0 - 0.4 % [facility] Lymphocytes Percent Auto 23.5 20 - 40 % [facility] Monocytes Percent Auto 5.4 2 - 11 % [facility] Eosinophils Percent Auto 2.0 0 - 4 % [facility] Basophils Percent Auto 0.5 0 - 2 % [facility] NRBC Pct Auto 0.0 0.0 - 0.2 /100WBC [facility] Neutrophils Absolute Auto 6.6 2.0 - 8.3 x10*3/uL [facility] Imm Gran Abs Auto 0.04(H) 0.00 - 0.03 X10*3/uL [facility] Lymphocytes Absolute Auto 2.3 1.2 - 4.9 X10*3/uL [facility] Monocytes Absolute Auto 0.5 0.1 - 1.2 X10*3/uL [facility] Eosinophils Absolute Auto 0.2 0.0 - 0.4 X10*3/uL [facility] Basophils Absolute Auto 0.1 0.0 - 0.2 X10*3/uL [facility] NRBC Abs Auto 0.000 0.0 - 0.012 X10*3/uL [facility] Blood Venous blood specimen / Unknown 11/08/2024 2:48 PM EST 11/08/2024 4:08 PM EST Shereen Latham MD LAB BLOOD ORDERABLES Final Result [facility] [address] [place] [address] [phone] documented in this encounter Visit Diagnoses Diagnosis Iron deficiency anemia, unspecified iron deficiency anemia type- Primary documented in this encounter Additional Health Concerns Assessment Noted Time PHQ-9 Depression Total Score: 13 024 4:53 PM EDT documented as of this encounter Care Teams County Engineer Relationship Specialty Start Date End Date Shereen Latham MD [address] [place] [address] PCP - General Family Medicine 11/02/18 Nupur Bullock PharmD [address] [place] [address] Pharmacist Internal Medicine 08/09/24 Sury Benitez [address] [place] [address] Dr [address] [place] [address] Pulmonary Disease 09/27/24 Nirali Madrid OD [address] [place] [address] Optometry 10/27/24 Li Grande MD [address] [place] [address] Hematology and Oncology 10/27/24 Anselmo Gates MD [address] [place] [address] Drive [address] [place] [address] Orthopaedic Surgery 10/27/24 Margaret Holman [address]rd [place] [address] Cardiology 10/27/24 Herberth Stokes MD [address]rd [place] [address] Gastroenterology 10/27/24 Pily Delaney Seafood Team MemberOdd Shoe Examiner 07/22/24 documented as of this encounter
--- OUTSIDE RECORDS SUMMARY | 2024-12-06 09:47 | XMS_ITS | Encounter Summary ---
Author Organization [facility] [employer] Address 75 [facility] 7t [place] [address] Care Team Providers Care Stenciler Name Role Phone Shereen Latham MD Primary Care Provider [phone] Nupur Bullock PharmD Unavailable Sury Benitez Unavailable [phone] Nirali Madrid OD Unavailable Li Grande MD Unavailable [phone] Anselmo Gates MD Unavailable Margaret Holman Unavailable Herberth Stokes MD Unavailable [phone] Encounter Details Date Type Department Care Team (Latest Contact Info) Description 11/17/2024 Travel Social History Tobacco Use Types Packs/Day [...] Description 12/07/2024 2:30 PM EST Medication Management [facility] MEDICINE [address] [place] [address] Nupur Bullock, PharmD [address] [place] [address] 12/29/2024 10:30 AM EST Office Visit [facility] MEDICINE [address] [place] [address] Shereen Latham MD [address] [place] [address] 03/29/2025 2:00 PM EDT Office Visit [facility] [address] [place] [address], [place] [address] Jenny Gordon [address] [place] [address] documented as of this encounter Visit Diagnoses Not on filedocumented in this encounter Additional Health Concerns Assessment Noted Time PHQ-9 Depression Total Score: 13 024 4:53 PM EDT documented as of this encounter Care Teams Stenciler Relationship Specialty Start Date End Date Shereen Latham MD [address] [place] [address] PCP - General Family Medicine 11/02/18 Nupur Bullock, CharleneD [address] [place] [address] Pharmacist Internal Medicine 08/09/24 Sury Benitez [address] [place] [address] Dr [facility] [address] [place] [address] Pulmonary Disease 09/27/24 Nirali Madrid, OD [address] [place] [address] Optometry 10/27/24 Li Grande MD [address] [place] [address] Hematology and Oncology 10/27/24 Anselmo Gates MD [address] [place] [address] Orthopaedic Surgery 10/27/24 Margaret Holman [address] 3rd [place] [address] Cardiology 10/27/24 Herberth Stokes MD [address] [facility] [address] [place] [address] Gastroenterology 10/27/24 Pily Delaney Elastic Attacher CoverstitchMake Up Worker 07/22/24 documented as of this encounter
--- OUTSIDE RECORDS SUMMARY | 2024-12-06 09:47 | XMS_ITS | Encounter Summary ---
Author Organization [facility] Address 75 [facility] 7t [place] [address] Care Team Providers Care Exhaust Emissions Inspector Name Role Phone Shereen Latham MD Primary Care Provider [phone] Nupur Bullock PharmD Unavailable Sury Benitez Unavailable [phone] Nirali Madrid OD Unavailable Li Grande MD Unavailable [phone] Anselmo Gates MD Unavailable Margaret Holman Unavailable Herberth Stokes MD Unavailable [phone] Reason for Visit * Reason Comments Med Refill Encounter Details Date Type Department Care Team (Late st Contact Info) Description 11/10/2024 Refill [facility] MEDICINE [address] [place], [place] [phone] Shereen Latham MD [address] [place], [place] [phone] Benign essential hypertension Social History Tobacco Use Types Packs/Day Years Used Date Smoking Tobacco: Some Days Cigarettes Passive Smoke Exposure: Current Smokeless Tobacco: Never Alcohol Use Standard Drinks/Week Comments Yes 0 (1 standard drink = 0.6 oz pur e alcohol) oca Alcohol Answer Date Recorded Frequency of Alcohol Consumption Not on file 04/25/2024 Average Number of Drinks Not on file 06/24/2 024 Frequency of Binge Drinking Not on [...] Description 12/07/2024 2:30 PM EST Medication Management [facility] MEDICINE [address] [place] [address] Nupur Bullock, PharmD [address] [place] [address] 12/29/2024 10:30 AM EST Office Visit [facility] MEDICINE [address] [place] [address] [place] [address] Shereen Latham MD [address] [place] [address] 03/29/2025 2:00 PM EDT Office Visit [facility] ADULT DENTAL [address] [place] [address] Jenny Gordon [address] [place] [address] documented as of this encounter Visit Diagnoses Diagnosis Benign essential hypertension Essential hypertension, benign documented in this encounter Additional Health Concerns Assessment Noted Time PHQ-9 Depression Total Score: 13 024 4:53 PM EDT documented as of this encounter Care Teams Exhaust Emissions Inspector Relationship Specialty Start Date End Date Shereen Latham MD [address] [place] [address] PCP - General Family Medicine 11/02/18 Nupur Bullock, CharleneD [address] [place] [address] Pharmacist Internal Medicine 08/09/24 Sury Benitez [address] [place] [address] Dr [facility] [address] [place] [address] Pulmonary Disease 09/27/24 Nirali Madrid OD [address] [place] [address] Optometry 10/27/24 Li Grande MD [address] [place] [address] Hematology and Oncology 10/27/24 Anselmo Gatse MD [address] [facility] [facility] [address] [place] [address] Orthopaedic Surgery 10/27/24 Margaret Holman [address] 3rd [place] [address] Cardiology 10/27/24 Herberth Stokes MD [address] [facility] [address] [facility] [address] 3rd [place] [address] Gastroenterology 10/27/24 Pily Delaney Jig And Fixture BuilderSprinkler Worker 07/22/24 documented as of this encounter
--- OUTSIDE RECORDS SUMMARY | 2024-12-06 09:47 | XMS_ITS | Encounter Summary ---
Author Organization [facility] [employer] Address 75 [facility] 7t [place] [address] Care Team Providers Care Yard Crane Operator Name Role Phone Shereen Latham MD Primary Care Provider [phone] Nupur Bullock PharmD Unavailable Sury Benitez Unavailable [phone] Nirali Madrid OD Unavailable Li Grande MD Unavailable [phone] Anselmo Gates MD Unavailable Margaret Holman Unavailable Herberth Stokes MD Unavailable [phone] Reason for Visit * Reason Comments Med Refill Encounter Details Date Type Department Care Team (Late st Contact Info) Description 06/21/2024 Refill [facility]EDS [address] [place], [place] [phone] Shereen Latham MD [address] [place] [address] Mild intermittent asthma, unspecified whether complicated; Pain Social History Tobacco Use Types Packs/Day [...] encounter Miscellaneous Notes * Telephone Encounter - Shereen Latham MD - 06/29/2024 3:56 PM EDT Please order shower chair, wheelchair and commode dx gout, CHF documented in this encounter Plan of Treatment Upcoming Encounters Date Type Department Care Team (Late st Contact Info) Description 12/07/2024 2:30 PM EST Medication Management [facility] MEDICINE [address] [place] [address] Nupur Bullock PharmD [address] [place] [address] 12/29/2024 10:30 AM EST Office Visit [facility] MEDICINE [address] [place] [address] Shereen Latham MD [address] [place] [address] 03/29/2025 2:00 PM EDT Office Visit [facility] ADULT DENTAL [address] [place] [address] Heidi Jenny [address] [place] [address] documented as of this encounter Visit Diagnoses Diagnosis Mild intermittent asthma, unspecified whether complicated Pain Generalized pain documented in this encounter Additional Health Concerns Assessment Noted Time PHQ-9 Depression Total Score: 13 024 4:53 PM EDT documented as of this encounter Care Teams Yard Crane Operator Relationship Specialty Start Date End Date Shereen Latham MD [address] [place] [address] PCP - General Family Medicine 11/02/18 Nupur Bullock PharmD [address] [place] [address] Pharmacist Internal Medicine 08/09/24 Sury Benitez [address] [place] [address] [place] [address] [place] [address] Pulmonary Disease 09/27/24 Nirali Madrid OD [address] [place] [address] Optometry 10/27/24 Li Grande MD [address] [place] [address] Hematology and Oncology 10/27/24 Anselmo Gates MD [address] [place] [address] Orthopaedic Surgery 10/27/24 Margaret Holman [address] 3rd [place] [address] Cardiology 10/27/24 Herberth Stokes MD [address] [place] [address] Gastroenterology 10/27/24 Pily Delaney Registration CoordinatorAuto Inspection Specialist 07/22/24 documented as of this encounter
--- OUTSIDE RECORDS SUMMARY | 2024-12-06 09:47 | XMS_ITS | Encounter Summary ---
Author Organization [employer] Address [address] [facility] 7t [place] [address] Care Team Providers Care Taxi Proprietor Name Role Phone Shereen Latham MD Primary Care Provider [phone] Nupur Bullock PharmD Unavailable [phone] Sury Benitez Unavailable [phone] Nirali Madrid OD Unavailable [phone] Li Grande MD Unavailable [phone] Anselmo Gates MD Unavailable Margaret Holman Unavailable Herberth Stokes MD Unavailable [phone] Encounter Details Date Type Department Care Team (Late st Contact Info) Description 10/24/2024 Orders Only [facility] External Provider, [facility] Tobacco dependence syndrome (Primary Dx) Social History Tobacco Use Types [...] Description 12/07/2024 2:30 PM EST Medication Management [facility] [address] [place] [address] Nupur Bullock, PharmD [address] [place] [address] 12/29/2024 10:30 AM EST Office Visit [facility] [address] [place] [address] Shereen Latham MD 230 [place] [address] 03/29/2025 2:00 PM EDT Office Visit [facility] ADULT DENTAL [address] [place] [address] Jenny Gordon [address] [place] [address] documented as of this encounter Procedures Procedure Name Priority Date/Time Associated Diagnosis Comments CT CHEST WO CONTRAST Routine 10/24/2024 4:44 PM EST documented in this encounter Results * CT Chest w/o Contrast (10/24/2024 4:44 PM EST) Anatomical Region Laterality Modality Body, Chest Computed Tomogra phy 10/24/2024 4:44 PM EST Narrative 11/14/2024 11:53 AM EST ? [facility] ?[address] ?[place] [address] ? CT Scan Report ? Signed ? Patient: Azra Cast ?MR#: [id number] ?? [id number] ? : 1975 ?Acct:[id number] ? Age/Sex: 48 / F ?ADM Date: 10/24/24 ? Loc: HO.CT ? Attending Dr: Sury Benitez [employer] PSYCHOLOGIST ? Ordering Physician: Sury Benitez NP ?? Date of Service: 10/24/24 ?? Procedure(s): CT chest wo IV con ?? Accession Number(s): [id number] ? cc: Shereen Latham MD; Sury Benitez NP ? Report Number: ?? [id number]: Total DLP = ??321.00 mGy-cm ?? EXAMINATION: ?? CT CHEST WITHOUT CONTRAST ? CLINICAL INFORMATION: ?? Abnormal results of pulmonary function studies. ? COMPARISON: ?? CT chest 02/18/2023. ? TECHNIQUE: ?? Multidetector volumetric CT imaging of the chest was done. Axial MIP ?? volume rendering provided. Sagittal and coronal reformatted images were ?? obtained. ? This CT examination was performed using dose optimization techniques as ?? appropriate, variously including the following: ?? *Automated exposure control ?? *Adjustment of mA and/or kV according to patient size (this includes ?? techniques or standardized protocols for targeted exams where dose is ?? matched to indication/reason for exam; i.e. extremities or head) ?? *Use of iterative reconstruction technique ? Exam submitted for review 11/14/2024 10:14 AM PHYSICAL OPTICS TEACHER. ? FINDINGS: ? PULMONARY NODULES: ?? -There are a few tiny 1-2 mm stable noncalcified pulmonary nodules in ?? both lungs, entirely nonspecific. ?? -5 mm stable nodule abutting the major fissure in the residual right ?? middle lobe (series 5, image 313), most consistent with intrapulmonary ?? lymph node. ?? -No left-sided nodules. ? LUNGS: ?? -There is near complete collapse/cicatrization type atelectasis of the ?? right middle lobe, with thickening of the right middle lobe bronchi and ?? bronchiectasis/fibrosis. Findings are most likely on the basis of post ?? radiation treatment to the right breast. ?? -Lungs are otherwise clear and free of consolidations, interstitial ?? disease, or groundglass opacities. ?? -The small airways demonstrate minimal bronchiectasis and mild wall ?? thickening suggesting chronic bronchitis. ? -There is no pleural effusion or pneumothorax. ?? -There is no pleural mass. ? MEDIASTINUM: ?? -The mediastinum is normal aside from a small pericardial effusion. ?? Heart size is normal. ?? -No lymphadenopathy. ? CORONARY ARTERY CALCIFICATION: Mild RCA and LAD calcification. ? PLEURA: There is no pleural effusion. No pleural mass or thickening. ? AXILLA CHEST WALL: ?? -No masses or lymphadenopathy. ?? -There is a right breast implant in place post mastectomy. There are ?? surgical clips in the right axilla. ? UPPER ABDOMEN: ?? -Normal in appearance. ? OSSEOUS STRUCTURES: ?? -There are no suspicious lytic or blastic bone lesions present. A small ?? sclerotic focus in T6 is most likely a benign bone island and is ?? unchanged. ? CT/CT chest wo IV con ?? IMPRESSION: ?? 1. Mild thickening of the small airways suggesting chronic bronchitis. ?? Minimal bronchiectasis. ?? 2. Stable cicatrization atelectasis of the right middle lobe with ?? significant volume loss, unchanged and likely on the basis of post ?? radiation changes to the right breast. ?? 3. Otherwise, no active lung disease is identified. No interstitial ?? disease is present. ?? 4. Stable scattered pulmonary nodules, largest in the right middle lobe ?? measuring 5 mm abutting the major fissure, most likely an ?? intrapulmonary lymph node. No change. ?? 5. Ancillary findings as discussed. ? Fleischner guidelines were followed. ? Electronically signed by: ??Akbar Galicia MD ??11/14/2024 11:50 AM EST RP ? Dictated By: ?Akbar Galicia MD ? Signed By: ?<Electronically signed by Akbar Galicia MD in OV> ?11/14/24 1150 ? DD/ 1644 ? TD/TT: 10/24/24 1657 ? Lead Coater: ? Procedure Note Donmauro, Image - 11/14/[address] [address] [address] Scan Report Signed Patient: Maged Cast#: [id number] : 1975Acct:[id number] Age/Sex: 48 / FADM Date: 10/24/24 Loc: HO.CT Attending Dr: Sury Benitez NP Ordering Physician: Sury Benitez NP Date of Service: 10/24/24 Procedure(s): CT chest wo IV con Accession Number(s): [id number] cc: Shereen Latham MD; Sury Benitez NP Report Number: [id number]: Total DLP = 321.00 mGy-cm EXAMINATION: CT CHEST WITHOUT CONTRAST CLINICAL INFORMATION: Abnormal results of pulmonary function studies. COMPARISON: CT chest 02/18/2023. TECHNIQUE: Multidetector volumetric CT imaging of the chest was done. Axial MIP volume rendering provided. Sagittal and coronal reformatted images were obtained. This CT examination was performed using dose optimization techniques as appropriate, variously including the following: *Automated exposure control *Adjustment of mA and/or kV according to patient size (this includes techniques or standardized protocols for targeted exams where dose is matched to indication/reason for exam; i.e. extremities or head) *Use of iterative reconstruction technique Exam submitted for review 11/14/2024 10:14 AM PHYSICAL OPTICS TEACHER. FINDINGS: PULMONARY NODULES: -There are a few tiny 1-2 mm stable noncalcified pulmonary nodules in both lungs, entirely nonspecific. -5 mm stable nodule abutting the major fissure in the residual right middle lobe (series 5, image 313), most consistent with intrapulmonary lymph node. -No left-sided nodules. LUNGS: -There is near complete collapse/cicatrization type atelectasis of the right middle lobe, with thickening of the right middle lobe bronchi and bronchiectasis/fibrosis. Findings are most likely on the basis of post radiation treatment to the right breast. -Lungs are otherwise clear and free of consolidations, interstitial disease, or groundglass opacities. -The small airways demonstrate minimal bronchiectasis and mild wall thickening suggesting chronic bronchitis. -There is no pleural effusion or pneumothorax. -There is no pleural mass. MEDIASTINUM: -The mediastinum is normal aside from a small pericardial effusion. Heart size is normal. -No lymphadenopathy. CORONARY ARTERY CALCIFICATION: Mild RCA and LAD calcification. PLEURA: There is no pleural effusion. No pleural mass or thickening. AXILLA CHEST WALL: -No masses or lymphadenopathy. -There is a right breast implant in place post mastectomy. There are surgical clips in the right axilla. UPPER ABDOMEN: -Normal in appearance. OSSEOUS STRUCTURES: -There are no suspicious lytic or blastic bone lesions present. A small sclerotic focus in T6 is most likely a benign bone island and is unchanged. CT/CT chest wo IV con IMPRESSION: 1. Mild thickening of the small airways suggesting chronic bronchitis. Minimal bronchiectasis. 2. Stable cicatrization atelectasis of the right middle lobe with significant volume loss, unchanged and likely on the basis of post radiation changes to the right breast. 3. Otherwise, no active lung disease is identified. No interstitial disease is present. 4. Stable scattered pulmonary nodules, largest in the right middle lobe measuring 5 mm abutting the major fissure, most likely an intrapulmonary lymph node. No change. 5. Ancillary findings as discussed. Fleischner guidelines were followed. Electronically signed by: Akbar Galicia MD 11/14/2024 11:50 AM EST Dictated By: Akbar Galicia MD Signed By: <Electronically signed by Akbar Galicia MD in OV> 11/14/24 1150 DD/ 1644 TD/TT: 10/24/24 1657 Lead Coater: [facility] External Provider IMG CT PROCEDURES Edited Result - Final documented in this encounter Visit Diagnoses Diagnosis Tobacco dependence syndrome- Primary Tobacco use disorder documented in this encounter Additional Health Concerns Assessment Noted Time PHQ-9 Depression Total Score: 13 024 4:53 PM EDT documented as of this encounter Care Teams Taxi Proprietor Relationship Specialty Start Date End Date Shereen Latham MD [address] [place] [address] PCP - General Family Medicine 11/02/18 Nupur Bullock, CharleneD [address] [place] [address] Pharmacist Internal Medicine 08/09/24 Sury Benitez [address] [place] [address] Dr [facility] 103 [place] [address] Pulmonary Disease 09/27/24 Nirali Madrid OD [address] [place] [address] Optometry 10/27/24 Li Grande MD 575 [place] [address] Hematology and Oncology 10/27/24 Anselmo Gates MD [address] [place] [address] Orthopaedic Surgery 10/27/24 Margaret Holman [address] 3rd [place] [address] Cardiology 10/27/24 Herberth Stokes MD [address] 3rd [place] [address] Gastroenterology 10/27/24 Pily Delaney Saddle MakerMedical Interpreter 07/22/24 documented as of this encounter
--- OUTSIDE RECORDS SUMMARY | 2024-12-06 09:47 | XMS_ITS | Encounter Summary ---
Author Organization [employer] Address [address] [facility] 7t [place] [address] Care Team Providers Care Crop Or Livestock Tenant Farmer Name Role Phone Shereen Latham MD Primary Care Provider [phone] Nupur Bullock PharmD Unavailable Sury Benitez Unavailable [phone] Nirali Madrid OD Unavailable Li Grande MD Unavailable [phone] Anselmo Gates MD Unavailable Margaret Holman Unavailable Herberth Stokes MD Unavailable [phone] Reason for Visit * Reason Onset Date Comments Breast Cancer Screening 11/18/2024 Encounter Details Date Type Department Care Team (Late st Contact Info) Description 11/18/2024 Telephone [facility] [address] [place] [address] Violetta Mackey MT Breast Cancer Screening Social History Tobacco Use Types Packs/Day Years [...] encounter Miscellaneous Notes * Telephone Encounter - Violetta Mackey MA - 11/18/2024 11:56 AM EST Patient contacted 11/18/2510:57 AM to remind them that mammogram for breast cancer screening is due. Lvm advising to call centralized scheduling at [facility]: [phone]. Re faxed mammo order to centralized scheduling, received confirmation, and sent to scan. documented in this encounter Plan of Treatment Upcoming Encounters Date Type Department Care Team (Late st Contact Info) Description 12/07/2024 2:30 PM EST Medication Management [facility] MED[facility]INE [address] [place] [address] Nupur Bullock PharmD [address] [place] [address] 12/29/2024 10:30 AM EST Office Visit [facility] [address] [place] [address] Shereen Latham MD 230 [place] [address] 03/29/2025 2:00 PM EDT Office Visit [facility] ADULT DENTAL 230 [place] [address] Ehidi, Jenny [address] [place] [address] documented as of this encounter Visit Diagnoses Not on filedocumented in this encounter Additional Health Concerns Assessment Noted Time PHQ-9 Depression Total Score: 13 024 4:53 PM EDT documented as of this encounter Care Teams Crop Or Livestock Tenant Farmer Relationship Specialty Start Date End Date Shereen Latham MD [address] [place] [address] PCP - General Family Medicine 11/02/18 Nupur Bullock PharmD [address] [place] [address] Pharmacist Internal Medicine 08/09/24 Sury Benitez [address] [place] [address] [place] [address] Pulmonary Disease 09/27/24 Nirali Madrid OD [address] [place] [address] Optometry 10/27/24 Li Grande MD [address] [place] [address] Hematology and Oncology 10/27/24 Anselmo Gates MD [address] [place] [address] Orthopaedic Surgery 10/27/24 Margaret Holman [address] 3rd [place] [address] Cardiology 10/27/24 Herberth tSokes MD [address] 3rd [place] [address] Gastroenterology 10/27/24 Pily Delaney Automatic Lathe SetterTransformation Analyst 07/22/24 documented as of this encounter
--- OUTSIDE RECORDS SUMMARY | 2024-12-06 09:47 | XMS_ITS | Encounter Summary ---
Author Organization [employer] Address [address] [facility] 7t [place] [address] Care Team Providers Care Warper Creeler Name Role Phone Shereen Latham MD Primary Care Provider [phone] Nupur Bullock PharmD Unavailable Sury Benitez Unavailable [phone] Nirali Madrid OD Unavailable Li Grande MD Unavailable [phone] Anselmo Gates MD Unavailable Margaret Holman Unavailable Herberth Stokes MD Unavailable [phone] Encounter Details Date Type Department Care Team (Late st Contact Info) Description 10/22/2023 Orders Only [facility] MED[facility] [address] [place], [place] [phone] Shereen Latham MD [address] [place], [place] [phone] Vitamin D deficiency Social History Tobacco Use Types Packs/Day Years Used Date Smoking Tobacco: Some Days Cigarettes Passive Smoke Exposure: Current Smokeless Tobacco: Never Depression Answer Date Recorded Patient Health Questionnaire-9 Score 21 10/22/2023 Patient Health Questionnaire-9 Score 21 10/22/2023 Last PHQ-9: Questionnaire Data Not on file 1 12/23/2022 Housing Stability Answer Date Recorded What is your housing situation today? I have fritz jaimes 08/19/[address] you li ve. Do you have problems with any of the following? None of the above 08/19/2023 Food Insecurity Answer Date Recorded Within the [...] from getting things needed for daily living? No 08/19/2023 Utilities Answer Date Recorded In the past 12 months, has t he electric, gas, oil or water company threatened to shut off services in your home? No 08/19/2023 Depression Answer Date Recorded Patient Health Questionnaire-2 Score 6 10/22/2023 Comments Unknown Sex and Gender Information Value [...] Description 12/07/2024 2:30 PM EST Medication Management [facility] [address] [place] [address] Nupur Bullock, PharmD [address] [place] [address] 12/29/2024 10:30 AM EST Office Visit [facility] [address] [place] [address] Shereen Latham MD [address] [place] [address] 03/29/2025 2:00 PM EDT Office Visit [facility] ADULT DENTAL [address] [place] [address] Jenny Gordon 230 [place] [address] documented as of this encounter Visit Diagnoses Diagnosis Vitamin D deficiency documented in this encounter Additional Health Concerns Assessment Noted Time PHQ-9 Depression Total Score: 21 023 10:42 AM EST documented as of this encounter Care Teams Warper Creeler Relationship Specialty Start Date End Date Shereen Latham MD [address] [place] [address] PCP - General Family Medicine 11/02/18 Nupur Bullock, CharleneD [address] [place] [address] Pharmacist Internal Medicine 08/09/24 Sury Benitez [address] [place] [address] 103 [place] [address] Pulmonary Disease 09/27/24 Nirali Madrid OD [address] [place] [address] Optometry 10/27/24 Li Grande MD [address] [place] [address] Hematology and Oncology 10/27/24 Anselmo Gates MD 10 [facility] 203 [place] [address] Orthopaedic Surgery 10/27/24 Margaret Holman [address] [facility] 3rd [place] [address] Cardiology 10/27/24 Herberth Stokes MD [address] [facility] 3rd [place] [address] Gastroenterology 10/27/24 Pily Delaney Statistical GeneticistCare Assistant 07/22/24 documented as of this encounter
--- OUTSIDE RECORDS SUMMARY | 2024-12-06 09:47 | XMS_ITS | Encounter Summary ---
Author Organization [employer] Address [address] [facility] 7t [place] [address] Care Team Providers Care Sewing Machine Repairer Helper Name Role Phone Shereen Latham MD Primary Care Provider [phone] Nupur Bullock PharmD Unavailable Sury Benitez Unavailable [phone] Nirali Madrid OD Unavailable Li Grande MD Unavailable [phone] Anselmo Gates MD Unavailable Margaret Holman Unavailable Herberth Stokes MD Unavailable [phone] Reason for Visit * Reason Onset Date Comments Nurse Triage 11/17/2024 Encounter Details Date Type Department Care Team (Late st Contact Info) Description 11/17/2024 Telephone [facility] MED[facility]INE 230 [place], [place] [phone] Shereen Latham MD [address] [place], [place] [phone] Nurse Triage Social History Tobacco Use Types [...] encounter Miscellaneous Notes * Telephone Encounter - Rona Quinones RN - 11/17/2024 12:02 PM EST called pt t triage, spoke to pt. pt states recently her BP has been higher than usual, since havingCarvedilol stopped on 11/10. pt states BP readings 156/113, 147/106. pt states mild headaches and intermittent palpitations. pt denies actual chest pain, sob, blurred vision, numbness, or other associated symptoms. advised no available appt today and advised walk in center to have BP rechecked as hermachine at home may be a little off. no available appt today with PCP. advised home care: rest, fluids, relaxation activities, and call back as needed. advised to call back for follow up appt with PCP as needed. pt understands and agrees with plan. insurance verified. Protocol Used: Blood Pressure - High (Adult) Protocol-Based Disposition: See in Office or Video Visit within 3 Days Video visit offer not recorded Positive Triage Question: * Systolic BP >= 160 OR Diastolic >= 100 * All higher-acuity triage questions were negative Care Advice Discussed: * Reassurance and Education - BP Under 130 / 80 and Taking BP Meds * High Blood Pressure * High Blood Pressure - Lifestyle Changes * How to Check Your Blood Pressure? * Reasons To Call Back - Headache, blurred vision, difficulty talking, or difficulty walking occurs - Chest pain or difficulty breathing occurs - You want to go into the office for a blood pressure check - You become worse * Telephone Encounter - Hiren Bell - 11/17/2024 11:12 AM EST Symptom: High Blood Pressure - Caller Reports Outcome: Transfer to a nurse or provider NOW! Reason: Chest pain The caller accepted this outcome. Contact pt at [phone] documented in this encounter Plan of Treatment Upcoming Encounters Date Type Department Care Team (Late st Contact Info) Description 12/07/2024 2:30 PM EST Medication Management [facility] MEDICINE [address] [place] [address] Nupur Bullock, CharleneD [address] [place] [address] 12/29/2024 10:30 AM EST Office Visit [facility] MED[facility]INE [address] [place] [address] Shereen Latham MD 230 [place] [address] 03/29/2025 2:00 PM EDT Office Visit [facility] ADULT DENTAL 230 [place] [address] Jeramie Gordonaris [address] [place] [address] documented as of this encounter Visit Diagnoses Not on filedocumented in this encounter Additional Health Concerns Assessment Noted Time PHQ-9 Depression Total Score: 13 024 4:53 PM EDT documented as of this encounter Care Teams Sewing Machine Repairer Helper Relationship Specialty Start Date End Date Shereen Latham MD [address] [place] [address] PCP - General Family Medicine 11/02/18 Nupur Bullock PharmD [address] [place] [address] Pharmacist Internal Medicine 08/09/24 Sury Benitez [address] [place] [address] Dr [facility] 103 [place] [address] Pulmonary Disease 09/27/24 Nirali Madrid OD [address] [place] [address] Optometry 10/27/24 Li Grande MD [address] [place] [address] Hematology and Oncology 10/27/24 Anselmo Gates MD [address] [place] [address] Orthopaedic Surgery 10/27/24 Margaret Holman [address] [facility] 3rd [place] [address] Cardiology 10/27/24 Herberth Stokes MD [address] [facility] 3rd [place] [address] Gastroenterology 10/27/24 Pily Delaney Bpm Solution ArchitectHome Demonstration Agent 07/22/24 documented as of this encounter
--- OUTSIDE RECORDS SUMMARY | 2024-12-06 09:47 | XMS_ITS | Encounter Summary ---
Author Organization [employer] Address [address] [facility] 7t [place] [address] Care Team Providers Care Farm Marketer Name Role Phone Shereen Latham MD Primary Care Provider Nupur Bullock PharmD Unavailable [phone] Sury Benitez Unavailable [phone] Nirali Madrid OD Unavailable iL Grande MD Unavailable [phone] Anselmo Gates MD Unavailable Margaret Holman Unavailable Herberth Stokes MD Unavailable [phone] Encounter Details Date Type Department Care Team (Latest Contact Info) Description 2024 Travel Social History Tobacco Use Types Packs/Day [...] Description 12/07/2024 2:30 PM EST Medication Management [facility] [address] [place] [address] Nupur Bullock, PharmD [address] [place] [address] 12/29/2024 10:30 AM EST Office Visit [facility] [address] [place] [address] Shereen Latham MD [address] [place] [address] 03/29/2025 2:00 PM EDT Office Visit [facility] [address] [place] [address], [place] [address] Jenny Gordon 230 [place] [address] documented as of this encounter Visit Diagnoses Not on filedocumented in this encounter Additional Health Concerns Assessment Noted Time PHQ-9 Depression Total Score: 13 024 4:53 PM EDT documented as of this encounter Care Teams Farm Marketer Relationship Specialty Start Date End Date Shereen Latham MD 230 [place] [address] PCP - General Family Medicine 11/02/18 Nupur Bullock, CharleneD [address] [place] [address] Pharmacist Internal Medicine 08/09/24 Sury Benitez [address] [place] [address] Dr [facility] 103 [place] [address] Pulmonary Disease 09/27/24 Nirali Madrid, OD 267 [place] [address] Optometry 10/27/24 Li Grande MD 575 [place] [address] Hematology and Oncology 10/27/24 Anselmo Gates MD [address] [place] [address] Orthopaedic Surgery 10/27/24 Margaret Holman [address] 3rd [place] [address] Cardiology 10/27/24 Herberth Stokes MD [address] [place] [address] Gastroenterology 10/27/24 Pily Delaney Burr SanderStaff Development Coordinator Rn 07/22/24 documented as of this encounter
--- OUTSIDE RECORDS SUMMARY | 2024-12-06 09:47 | XMS_ITS | Encounter Summary ---
Author Organization [employer] Address [address] [facility] [address] [place] [address] Care Team Providers Care Guest History Clerk Name Role Phone Shereen Latham MD Primary Care Provider [phone] Nupur Bullock PharmD Unavailable Sury Benitez Unavailable [phone] Nirali Madrid OD Unavailable Li Grande MD Unavailable [phone] Anselmo Gates MD Unavailable Margaret Holman Unavailable Herberth Stokes MD Unavailable [phone] Encounter Details Date Type Department Care Team (Late st Contact Info) Description 11/09/2024 11:30 AM EST Office Visit [facility] [address], [place] [phone] Shereen Latham MD [address] [place], [place] [phone] Gout of foot, unspecified cause, unspecified chronicity, unspecified laterality (Primary Dx); Mild intermittent reactive airway disease without complication; Benign essential hypertension; Severe episode of recurrent major depressive disorder, with psychotic features (CMS/HCC); Alcohol use disorder, moderate, dependence (CMS/HCC); Dietary counseling; Exercise counseling; Overweight; Hypomagnesemia; Anemia, unspecified type; Cardiac risk counseling; History of right breast cancer Social History Tobacco Use Types Packs/Day Years [...] Sign Reading Time Taken Comments Blood Pressure 133/97 11/09/2024 11:48 AM EST Pulse 109 11/09/2024 11:48 AM EST Temperature 36.2 ??C (97.1 ??F) 11/09/2024 11:[address] Respiratory Rate 18 11/09/2024 11:48 AM EST Oxygen Saturation 97% 11/09/2024 11:48 AM EST Inhaled Oxygen Concentration - - Weight 87.1 kg (192 lb) 11/09/2024 11:48 AM EST Height 170.2 cm (5' 7 ) 11/09/2024 11:48 AM EST Body Mass Index 30.07 11/09/2024 11:48 AM EST documented in this encounter Patient Instructions * Patient Instructions* Shereen Latham MD - 11/09/2024 11:30 AM EST . documented in this encounter Progress Notes * Shereen Latham MD - 11/09/2024 11:30 AM EST Subjective Patient ID: Azra Cast is a 48 y.o. female with PMHx of alcohol use disorder last intake June 04, anemia, breast cancer, essential hypertension, GERD, history of gout recent flares(twice in the past 3 weeks) and congestive heart failure who presents for Multiple ED visit. Pt reports being on Prednisone since 2023. Pt denies going to her mammogram exam because she had a gout flare up but will call to reschedule. Pt is seeing a therapist over the phone, and has a psychiatrist as well. Pt reports feeling tired all the time, and whenever she bends over, she gets back upout of breath and dizzy. Pt will be calling cardiology to schedule her stress test and will call togo see psychiatry as soon as she can. Pt has gone 8 days without Alcohol. Last seen on 10/20/24 in [facility] [place] for sick visit. Complains of cough, stuffy and runny nose, a slight headache, chest tightness, and some shortness of breath that started 2 days ago. States some of theses symptoms are baseline for her as she has CHF, however, her current symptoms feel different from her CHF symptoms. Says she's had RSV in the past and feels her symptoms are similar. Reportsexposure to RSV via her three grand-daughters and would like confirmation. She has not tried anything for her symptoms bc of her chronic health conditions and the meds she talking. Has lump in right nostril that is painful. Present for 2 weeks and is not resolving Review of Systems Constitutional: Negative for fatigue, fever and unexpected weight change. Respiratory: Negative for cough. Cardiovascular: Negative for chest pain. Gastrointestinal: Negative for abdominal pain. Genitourinary: Negative for difficulty urinating. Objective Visit Vitals BP (!) 133/97 (BP Location: Left arm, Patient Position: Sitting, BP Cuff Size: Adult) Pulse 109 Temp 97.1 ??F (36.2 ??C) (Temporal) Resp 18 Body mass index is 30.07 kg/m??. Physical Exam Constitutional: Appearance: Normal appearance. Cardiovascular: Rate and Rhythm: Normal rate and regular rhythm. Heart sounds: Normal heart sounds. Pulmonary: Effort: Pulmonary effort is normal. Breath sounds: Normal breath sounds. Abdominal: Tenderness: There is no abdominal tenderness. Musculoskeletal: Cervical back: Normal range of motion and neck supple. Neurological: General: No focal deficit present. Mental Status: She is alert. Psychiatric: Behavior: Behavior normal. Problem List Items Addressed This Visit Gout - Primary Mild reactive airways disease -Pulmonology note 09/08/24 PFT which revealed a restrictive ventilatory defect consistent with mild restrictive lung disease. The patient also has a significantly decreased expiratory reserve volume likely secondary to an elevated BMI. No evidence of obstruction and no significant response to bronchodilators noted. Prior CXR unremarkable. Will send for chest CT to evaluate for any underlying parenchymal conditions contributing to restrictive defect. At this time, she denies any effect from ICS and developed tachycardia with albuterol, advised to d/c for now. Will follow up after chest CT and stress test ordered by cardiology. Pulmonology note with Sury Benitez NP 09/12/24 reviewed - Prescribed fluticasone furoate (Arnuity Ellipta) 200 MCG/ACT inhaler 11/09/24 Relevant Medications fluticasone furoate (Arnuity Ellipta) 200 MCG/ACT inhaler Benign essential hypertension -Blood pressure is at goal -Continue lifestyle modifications -Continue current medications - Prescribed spironolactone (Aldactone) 25 MG tablet 11/09/24 Relevant Medications spironolactone (Aldactone) 25 MG tablet Severe episode of recurrent major depressive disorder, with psychotic features (CMS/HCC) -has psychiatrist and therapist whom she follows with closely - Will call to follow up with Psychiatry on tomorrow 11/10/24 - 11/09/24 Alcohol use disorder, moderate, dependence (CMS/HCC) Hypomagnesemia - Increased Magnesium intake to 4 times a day 11/09/24 - Prescribed magnesium oxide (Mag-Ox) 400 MG tablet 11/09/24 Relevant Medications magnesium oxide (Mag-Ox) 400 MG tablet Anemia Cardiac risk counseling Calculated 11/09/24: High Risk The 10-year ASCVD risk score (Becka JOY, et al., 2019) is: 6.5% Values used to calculate the score: Age: 48 years Sex: Female Is Non- : No Diabetic: No Tobacco smoker: Yes Systolic Blood Pressure: 133 mmHg Is BP treated: Yes HDL Cholesterol: 44 mg/dL Total Cholesterol: 194 mg/dL Lab Results Component Value Date LDLCHOL 147 (H) 07/10/2021 -Tobacco cessation: encouraged -Statin therapy: deferred due to history of binge EtOH and concern of adherence and difficulty getting lab work done, will continue to reassess -Importance of moderate physical activity and nutrition interventions discussed. -Saw CDTM on 08/16/24 who recommended assessing initiating a moderate intensity statin such as atorvastatin 10 mg once daily, and reassessing FLP + LFT in 4 weeks(Patients 10 year ASCVD risk: 9.4%). -08/24/24 pt continues to smoke, reported increasing use since having increased stressors due to the holidays coming up. Currently not drinking but reported struggling with abstinence. Will reevaluate for statin therapy again in the future. 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 -S/p RIGHT mastectomy with sentinel node bx by [facility]. [facility] -Adriamycin/Cytoxan based chemotherapy started Oct, completed 4 cycles in Dec -received one cycle of Taxol February 22 then lost to follow up, restarted taxol May 08 completed 12 weeks of therapy with some interruptions on Sep 13, 2010 -She was given a Rx for tamoxifen but did not start it. -Pt has not been complaint with follow up. She did reestablish care and saw Dr. Grande 04/2014. At that time she reported left breast mass. Mammo and US ordered. -Pt encouraged to start tamoxifen. She is not a candidate for aromatase inhibitor due to being premenopausal -last apt with Dr. Grande 04/23/16. She had iron infusion at that time,. Encouraged to get mammo andstart tamoxifen. She has not done either. Mammo on 09/08/2019 was BIRADS 1 neg. - encouraged patient to follow up by repeating mammogram, patient expressed understanding and states she would like to proceed with this - last oncology visit 08/13/2021, mammogram was scheduled as well as US for tender lumps on left breast to evaluate if the implant leaked. -US showed no evidence of leak but recommended MRI to better assess, MRI ordered but she missed it 01/23/2022. -Mammo on 10/11/2021 was BIRADS 2 benign, next due 10/2022. -Mammo done 08/27/23, was BIRADS 1 negative. -Normal bone density on 09/23/23. Patient missed Heme/Oncology visit on 03/11/24. Per last contact with Heme/Oncology office, CM informed that they would not reschedule the patient if she missed the appointment due to multiple consecutive no shows. She missed the appointment and is discharged from clinic. -She reestablished with oncology 08/24/2024 -Has appt on 09/01/24 for mammo. - Pt missed her Mammogram appointment due to Gout flare up. Will call to reschedule her [id number]/25 Other Visit Diagnoses Dietary counseling Exercise counseling Overweight Follow up in about 6 weeks (around 12/21/2024) for Follow Up on Lilliana, P and Cardiology appointment. I, Bhavna Paz, am serving as a scribe to document services personally performed by Dr. Shereen Latham, based on the patient's response to questions by provider and providers statements to me. 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 -[facility] -[facility]/Cytoxan based chemotherapy started Oct, completed 4 cycles in Dec -received one cycle of Taxol February 22 then lost to follow up, restarted taxol May 08 completed 12 weeks of therapy with some interruptions on Sep 13, 2010 -She was given a Rx for tamoxifen but did not start it. -Pt has not been complaint with follow up. She did reestablish care and saw Dr. Grande 04/2014. At that time she reported left breast mass. Mammo and US ordered. -Pt encouraged to start tamoxifen. She is not a candidate for aromatase inhibitor due to being premenopausal -last apt with Dr. Grande 04/23/16. She had iron infusion at that time,. Encouraged to get mammo andstart tamoxifen. She has not done either. Mammo on 09/08/2019 was BIRADS 1 neg. - encouraged patient to follow up by repeating mammogram, patient expressed understanding and states she would like to proceed with this - last oncology visit 08/13/2021, mammogram was scheduled as well as US for tender lumps on left breast to evaluate if the implant leaked. -US showed no evidence of leak but recommended MRI to better assess, MRI ordered but she missed it 01/23/2022. -Mammo on 10/11/2021 was BIRADS 2 benign, next due 10/2022. -Mammo done 08/27/23, was BIRADS 1 negative. -Normal bone density on 09/23/23. Patient missed Heme/Oncology visit on 03/11/24. Per last contact with Heme/Oncology office, CM informed that they would not reschedule the patient if she missed the appointment due to multiple consecutive no shows. She missed the appointment and is discharged from clinic. -She reestablished with oncology 08/24/2024 -Has appt on 09/01/24 for mammo. - Pt missed her Mammogram appointment due to Gout flare up. Will call to reschedule her [id number]/25 * Assessment & Plan Note - Bhavna Paz MA - 11/09/2024 12:52 PM EST Associated Problem(s): Cardiac risk counseling Calculated 11/09/24: High Risk The 10-year ASCVD risk score (Becka JOY, et al., 2019) is: 6.5% Values used to calculate the score: Age: 48 years Sex: Female Is Non- : No Diabetic: No Tobacco smoker: Yes Systolic Blood Pressure: 133 mmHg Is BP treated: Yes HDL Cholesterol: 44 mg/dL Total Cholesterol: 194 mg/dL Lab Results Component Value Date LDLCHOL 147 (H) 07/10/2021 -Tobacco cessation: encouraged -Statin therapy: deferred due to history of binge EtOH and concern of adherence and difficulty getting lab work done, will continue to reassess -Importance of moderate physical activity and nutrition interventions discussed. -Saw CDTM on 08/16/24 who recommended assessing initiating a moderate intensity statin such as atorvastatin 10 mg once daily, and reassessing FLP + LFT in 4 weeks(Patients 10 year ASCVD risk: 9.4%). -08/24/24 pt continues to smoke, reported increasing use since having increased stressors due to the holidays coming up. Currently not drinking but reported struggling with abstinence. Will reevaluate for statin therapy again in the future. - Pt will call Cardiology to schedule a Stress Test 11/09/24 * Assessment & Plan Note - Bhavna Paz MA - 11/09/2024 12:49 PM EST Associated Problem(s): Hypomagnesemia - Increased Magnesium intake to 4 times a day 11/09/24 - Prescribed magnesium oxide (Mag-Ox) 400 MG tablet 11/09/24 * Assessment & Plan Note - Bhavna Paz MA - 11/09/2024 12:45 PM EST Associated Problem(s): Benign essential hypertension -Blood pressure is at goal -Continue lifestyle modifications -Continue current medications - Prescribed spironolactone (Aldactone) 25 MG tablet 11/09/24 * Assessment & Plan Note - Bhavna Paz MA - 11/09/2024 12:44 PM EST Associated Problem(s): Mild reactive airways disease -Pulmonology note 09/08/24 PFT which revealed a restrictive ventilatory defect consistent with mild restrictive lung disease. The patient also has a significantly decreased expiratory reserve volume likely secondary to an elevated BMI. No evidence of obstruction and no significant response to bronchodilators noted. Prior CXR unremarkable. Will send for chest CT to evaluate for any underlying parenchymal conditions contributing to restrictive defect. At this time, she denies any effect from ICS and developed tachycardia with albuterol, advised to d/c for now. Will follow up after chest CT and stress test ordered by cardiology. Pulmonology note with Sury Benitez NP 09/12/24 reviewed - Prescribed fluticasone furoate (Arnuity Ellipta) 200 MCG/ACT inhaler 11/09/24 documented in this encounter Plan of Treatment Upcoming Encounters Date Type Department Care Team (Late st Contact Info) Description 12/07/2024 2:30 PM EST Medication Management [facility] [address] [place] [id number] Nupur Bullock, Pushpa [address] [place] [phone] 12/29/2024 10:30 AM EST Office Visit [facility] [address] [place] [phone] Shereen Latham MD [address] [place] [phone] 03/29/2025 2:00 PM EDT Office Visit [facility] [address] [place] [phone] HeidiJenny [address] [place] [address] documented as of this encounter Visit Diagnoses Diagnosis Gout of foot, unspecified cause, unspecified chronicity, unspecified laterality- Primary Mild intermittent reactive airway disease without complication Benign essential hypertension Essential hypertension, benign Severe episode of recurrent major depressive disorder, with psychotic features (CMS/HCC) Alcohol use disorder, moderate, dependence (CMS/HCC) Dietary counseling Dietary surveillance and counseling Exercise counseling Overweight Hypomagnesemia Disorders of magnesium metabolism Anemia, unspecified type Cardiac risk counseling History of right breast cancer documented in this encounter Additional Health Concerns Assessment Noted Time PHQ-9 Depression Total Score: 13 024 4:53 PM EDT documented as of this encounter Care Teams Guest History Clerk Relationship Specialty Start Date End Date Shereen Latham MD [address] [place] [phone] PCP - General Family Medicine 11/02/18 Nupur Bullock, CharleneD [address] [place] [phone] Pharmacist Internal Medicine 08/09/24 Sury Benitez [address] [place] [address] [address] [place] [address] Pulmonary Disease 09/27/24 Nirali Madrid OD [address] [place] [address] Optometry 10/27/24 Li Grande MD [address] [place] [address] Hematology and Oncology 10/27/24 Anselmo Gates MD [address] [facility] [address] [place] [address] Orthopaedic Surgery 10/27/24 Margaret Holman [address] [facility] [address] [place] [address] Cardiology 10/27/24 Herberth Stokes MD [address] [facility] [address] [place] [address] Gastroenterology 10/27/24 Pily Delaney Swimming Pool CleanerMachine Clothing Replacer 07/22/24 documented as of this encounter
--- OUTSIDE RECORDS SUMMARY | 2024-12-06 09:47 | XMS_ITS | Encounter Summary ---
Author Organization [employer] Address [address] [facility] 7t [place] [address] Care Team Providers Care Control Analyst Name Role Phone Shereen Latham MD Primary Care Provider [phone] Nupur Bullock PharmD Unavailable Sury Benitez Unavailable [phone] Nirali Madrid OD Unavailable Li Grande MD Unavailable [phone] Anselmo Gates MD Unavailable Margaret Holman Unavailable Herberth Stokes MD Unavailable [phone] Reason for Visit * Reason Onset Date Comments Medication Question 07/05/2024 Encounter Details Date Type Department Care Team (Late st Contact Info) Description 07/05/[address] [facility] [address], [place] [phone] Shereen Latham MD [address], [place] [phone] Medication Question Social History Tobacco Use Types Packs/Day Years [...] encounter Miscellaneous Notes * Telephone Encounter - Racheal Miner MA - 07/11/2024 3:36 PM EDT ..Chart Prep Labs: done Images: none Vaccines due: Shingles in pharmacy Due Referrals: Not Applicable Screenings: none Overdue care gaps: None * Telephone Encounter - Josie Boudreaux RN - 07/07/2024 1:23 PM EDT Please let pt know unfortunately Naproxen is not good for hypertension or history of congestive heart failure. It can make it worse. Acetamenophen Is the safest for her. Thank you. TC was placed to pt regarding the use of NSAIDS and HYPERTENSION and that APAP is best option. Patient states she understands the risk and why not to take those types of medication but the pain is very bad she states. Pt audibly sounds like she is in pain she states she doesn't want to take other medication for pain daily just during flare ups to help reduce inflammation and get pain under control. Patient needs a refill on APAP she is out of medication will que to provider. Pt requesting second message to PCP that she understands the safety of using vs not using medication however acute flare up are very painful and looking for advise for additional medication to use during this time and not daily. Will send message to PCP with APAP refill request. APAP os 500 mg Q 4-6 can the dose be increased? * Telephone Encounter - Keira Escobar RN - 07/06/2024 2:17 PM EDT Telephone call returned to pt regarding below message. Informed I went through her medlist and compared to possible med interactions for allopurinol and there were none. Pt states she gets anxiety related to medications. Informed when receiving a new medication it's always good to discuss it with apharmacist and informed that our system informs us of any med interactions when prescribing and when the pharmacy fills the medication them will also get a warning if there are any med interactions and they call us to notify us so there are multiple safeguards in place. Pt also reports ongoing pain. Has arthritis and fibromyalgia which is the cause of chronic pain but also is recovering from a gout flare up and tendonitis in opposite foot. Reports taking tylenol with no relief of pain States used to receive naproxen. Is wondering if she can have refill of that or a different medication for pain. Informed I would send request to PCP. * Telephone Encounter - Cheryl Izaguirre - 07/06/2024 10:48 AM EDT Tc from pt requesting a call back regarding last message. * Telephone Encounter - Jenny Frost - 07/05/2024 10:01 AM EDT Tc from pt requesting to speak to a nurse regarding medication allopurinol (Zyloprim) 100 MG tablet. Pt would like to review med list to confirm there is no medication interaction. Contact pt at [phone] documented in this encounter Plan of Treatment Upcoming Encounters Date Type Department Care Team (Late st Contact Info) Description 12/07/2024 2:30 PM EST Medication Management [facility] [address] [place] [address] Nupur Bullock, PharmD [address] [place] [address] 12/29/2024 10:30 AM EST Office Visit [facility] [address] [place] [address] Shereen Latham MD [address] [place] [address] 03/29/2025 2:00 PM EDT Office Visit [facility] ADULT DENTAL [address] [place] [address] Jenny Gordon [address] [place] [address] documented as of this encounter Visit Diagnoses Diagnosis Pain Generalized pain documented in this encounter Additional Health Concerns Assessment Noted Time PHQ-9 Depression Total Score: 13 024 4:53 PM EDT documented as of this encounter Care Teams Control Analyst Relationship Specialty Start Date End Date Shereen Latham MD [address] [place] [phone] PCP - General Family Medicine 11/02/18 Nupur Bullock, Pushpa [address] [place] [address] Pharmacist Internal Medicine 08/09/24 Sury Benitez [address] [place] [address] [address] [facility] [address] [place] [address] Pulmonary Disease 09/27/24 Nirali Madrid OD [address] [place] [address] Optometry 10/27/24 Li Grande MD [address] [place] [phone] Hematology and Oncology 10/27/24 Anselmo Gates MD [address] [place] [address] Orthopaedic Surgery 10/27/24 Margaret Holman [address] [facility] 3rd [place] [address] Cardiology 10/27/24 Herberth Stokes MD [address] [facility] 3[address] [place] [address] Gastroenterology 10/27/24 Pily Delaney TrainmasterSeam Stay Stitcher 07/22/24 documented as of this encounter
--- OUTSIDE RECORDS SUMMARY | 2024-12-06 09:47 | XMS_ITS | Encounter Summary ---
Author Organization [employer] Address [address] [facility] 7t [place] [address] Care Team Providers Care Inspector Machined Parts Name Role Phone Shereen Latham MD Primary Care Provider [phone]- [phone] Nupur Bullock PharmD Unavailable [phone] Sury Benitez Unavailable [phone] Nirali Madrid OD Unavailable [phone] Li Grande MD Unavailable [phone] Anselmo Gates MD Unavailable Margaret Holman Unavailable Herberth Stokes MD Unavailable [phone] Reason for Visit * Reason Onset Date Comments Results 11/01/2024 Encounter Details Date Type Department Care Team (Late st Contact Info) Description 11/01/2024 Telephone [facility] MEDICINE [address] [place] [address] Shereen Latham MD 230 [place] [address] Results Social History Tobacco Use Types Packs/Day Years [...] encounter Miscellaneous Notes * Telephone Encounter - Yudi Torre RN - 11/08/2024 12:03 PM EST Returned call to pt to advise that labwork ordered by PCP and can be done before appt, pt verbalized understanding. Pt asked about results of CT scan from 10/31/24, advised pt imaging normal but PCP plans to discuss with her in detail tomorrow. Pt verbalized understanding, states she plans to get labs done before the appt. * Telephone Encounter - Jenny Frost - 11/07/2024 11:35 AM EST Tc from pt returning call. Pt is also requesting lab work before her appointment on 11/09/24 Contact pt at [phone] * Telephone Encounter - Cira Martinez RN - 11/03/2024 9:19 AM EST TC placed to pt and LVM to call back the office * Telephone Encounter - Wing Shaffer - 11/01/2024 10:41 AM EST TC from pt requesting call back regarding Results. Type of results: Chest x-ray Date when done: 10/24 Facility: [facility] *final results in chart documented in this encounter Plan of Treatment Upcoming Encounters Date Type Department Care Team (Late st Contact Info) Description 12/07/2024 2:30 PM EST Medication Management [facility] MEDICINE [address] [place] [address] Nupur Bullock, PharmD [address] [place] [address] 12/29/2024 10:30 AM EST Office Visit [facility] MEDICINE [address] [place] [address] Shereen Latham MD 230 [place] [address] 03/29/2025 2:00 PM EDT Office Visit [facility] ADULT DENTAL [address] [place] [address] Jeramie Gordonaris [address] [place] [address] documented as of this encounter Visit Diagnoses Not on filedocumented in this encounter Additional Health Concerns Assessment Noted Time PHQ-9 Depression Total Score: 13 024 4:53 PM EDT documented as of this encounter Care Teams Inspector Machined Parts Relationship Specialty Start Date End Date Shereen Latham MD [address] [place] [address] PCP - General Family Medicine 11/02/18 Nuupr Bullock PharmD [address] [place] [address] Pharmacist Internal Medicine 08/09/24 Sury Benitez [address] [place] [address] [address] Pulmonary Disease 09/27/24 Nirali Madrid, SUSAN [address] [place] [address] Optometry 10/27/24 Li Grande MD [address] [place] [address] Hematology and Oncology 10/27/24 Anselmo Gates MD [address] [place] [address] Orthopaedic Surgery 10/27/24 Margaret Holman [address] 3rd [place] [address] Cardiology 10/27/24 Herberth Stokes MD [address] [place] [address] Gastroenterology 10/27/24 Pily Delaney Birthing NurseSemaphore Operator 07/22/24 documented as of this encounter
[2024-12-06 09:48] LABS: Basophils Absolute Auto 0.1 X10*3/uL (0.0-0.2); Basophils Percent Auto 0.7 % (0-2); Eosinophils Absolute Auto 0.2 X10*3/uL (0.0-0.4); Eosinophils Percent Auto 2.6 % (0-4); Hemoglobin 11.3 g/dl (12.0-16.0); Imm Gran Abs Auto 0.02 X10*3/uL (0.00-0.03); Imm Gran Pct Auto 0.3 % (0.0-0.4); Lymphocytes Absolute Auto 2.7 X10*3/uL (1.2-4.9); Lymphocytes Percent Auto 34.8 % (20-40); Mean Corpuscular HGB Conc 33.2 g/dl (31.0-35.0); Mean Corpuscular Hemoglobin 29.4 pg (27.0-33.0); Mean Corpuscular Volume 88.5 fL (80.0-98.0); Mean Platelet Volume 10.3 fL (9.4-12.3); Monocytes Absolute Auto 0.6 X10*3/uL (0.1-1.2); Neutrophils Absolute Auto 4.1 x10*3/uL (2.0-8.3); Neutrophils Percent Auto 53.6 % (45-73); Platelet Count 235 X10*3/uL (160-400); Red Blood Count 3.84 X10*6/uL (4.20-5.50); Red Cell Distribution Width 13.7 % (11.0-16.0); White Blood Count 7.6 X10*3/uL (4.8-10.8)
--- OUTSIDE RECORDS SUMMARY | 2024-12-06 09:48 | XMS_ITS | Encounter Summary ---
Author Organization [employer] Address [address] [facility] 7t [place] [address] Care Team Providers Care Business Development Officer Name Role Phone Shereen Latham MD Primary Care Provider [phone] Nupur Bullock PharmD Unavailable Sury Benitez Unavailable [phone] Nirali Madrid OD Unavailable Li Grande MD Unavailable [phone] Anselmo Gates MD Unavailable Margaret Holman Unavailable Herberth Stokes MD Unavailable [phone] Reason for Visit * Reason Onset Date Comments Medication Question 08/25/2024 Encounter Details Date Type Department Care Team (Late st Contact Info) Description 08/25/2024 Telephone [facility] MEDICINE [address] [place], [place] [phone] Shereen Latham MD [address] [place], [place] [phone] Medication Question Social History Tobacco Use Types [...] encounter Miscellaneous Notes * Telephone Encounter - Kalpesh Cordoba - 08/25/2024 4:12 PM EDT Tc from pt calling in regards to last OV stating she's discussed her anxiety with pcp and wants to know if pcp will prescribe medication for anxiety. If any questions you can contact pt at [phone]. documented in this encounter Plan of Treatment Upcoming Encounters Date Type Department Care Team (Late st Contact Info) Description 12/07/2024 2:30 PM EST Medication Management [facility] MEDICINE [address] [place] [address] Nupur Bullock PharmD [address] [place] [address] 12/29/2024 10:30 AM EST Office Visit [facility] MEDICINE [address] [place] [address] Shereen Latham MD [address] [place] [address] 03/29/2025 2:00 PM EDT Office Visit [facility] ADULT DENTAL [address] [place] [address] Heidi, Jenny [address] [place] [address] documented as of this encounter Visit Diagnoses Not on filedocumented in this encounter Additional Health Concerns Assessment Noted Time PHQ-9 Depression Total Score: 13 024 4:53 PM EDT documented as of this encounter Care Teams Business Development Officer Relationship Specialty Start Date End Date Shereen Latham MD [address] [place] [address] PCP - General Family Medicine 11/02/18 Nupur Bullock PharmD [address] [place] [address] Pharmacist Internal Medicine 08/09/24 Sury Benitez [address] [place] [address] [place] [address] Pulmonary Disease 09/27/24 Nirali Madrid OD [address] [place] [address] Optometry 10/27/24 Li Grande MD [address] [place] [address] Hematology and Oncology 10/27/24 Anselmo Gates MD [address] [place] [address] Orthopaedic Surgery 10/27/24 Margaret Holman [address] 3rd [place] [address] Cardiology 10/27/24 Herberth Stokes MD [address]rd [place] [address] Gastroenterology 10/27/24 Pily Delaney Small Offset PrinterCrew Dispatcher 07/22/24 documented as of this encounter
--- OUTSIDE RECORDS SUMMARY | 2024-12-06 09:48 | XMS_ITS | Encounter Summary ---
Author Organization [employer] Address 75 [facility] 7t [place] [address] Care Team Providers Care Therapist Occupational Name Role Phone Shereen Latham MD Primary Care Provider [phone] Nupur Bullock PharmD Unavailable Sury Benitez Unavailable [phone] Nirali Madrid OD Unavailable Li Grande MD Unavailable [phone] Anselmo Gates MD Unavailable Margaret Holman Unavailable Herberth Stokes MD Unavailable [phone] Reason for Visit * Reason Comments Med Refill Encounter Details Date Type Department Care Team (Late st Contact Info) Description 12/02/2022 Refill [facility] MEDICINE 230 [place], [place] [phone] Shereen Latham MD 230 [place], [place] [phone] Wheeze (Primary Dx); Pain Social History Tobacco Use Types Packs/Day Years Used Date Smoking Tobacco: Never Assessed Comments Unknown Sex and Gender Information Value [...] 2:30 PM EST Medication Management [facility] MEDICINE [address] [place] [address] Nupur Bullock PharmD [address] [place] [address] 12/29/2024 10:30 AM EST Office Visit [facility] MEDICINE [address] [place] [address] Shereen Latham MD [address] [place] [address] 03/29/2025 2:00 PM EDT Office Visit [facility] ADULT DENTAL [address] [place] [address] Jenny Gordon [address] [place] [address] documented as of this encounter Visit Diagnoses Diagnosis Wheeze- Primary Wheezing Pain Generalized pain documented in this encounter Care Teams Therapist Occupational Relationship Specialty Start Date End Date Shereen Latham MD [address] [place] [address] PCP - General Family Medicine 11/02/18 Nupur Bullock, CharleneD [address] [place] [address] Pharmacist Internal Medicine 08/09/24 Sury Benitez [address] [place] [address] [place] [address] Pulmonary Disease 09/27/24 Nirali Madrid OD [address] [place] [address] Optometry 10/27/24 Li Grande MD [address] [place] [address] [place] [address] Hematology and Oncology 10/27/24 Anselmo Gates MD [address] [place] [address] Orthopaedic Surgery 10/27/24 Margaret Holman [address] [place] [address] Cardiology 10/27/24 Herberth Stokes MD [address]rd [place] [address] Gastroenterology 10/27/24 Pily Delaney Supervisor GeneralHand Molder 07/22/24 documented as of this encounter
--- OUTSIDE RECORDS SUMMARY | 2024-12-06 09:48 | XMS_ITS | Clinical Summary ---
Author Organization [employer] [facility] it Address [address] [place] [address] Care Team Providers Care Casting Machine Operator Helper Name Role Phone Shereen Latham MD Primary Care Provider [phone] Social History Tobacco Use Types Packs/Day Years Used Date Smoking Tobacco: Never Assessed Sex and Gender Information Value Date Recorded Sex Assigned at Not on file Gender Identity Not on file Sexual Orientation Not on file Last Filed Vital Signs Vital Sign Reading Time Taken Comments Blood Pressure - - Pulse - - Temperature - - Respiratory Rate - - Oxygen Saturation - - Inhaled Oxygen Concentration - - Weight 74.8 kg (165 lb) 05/23/2024 1:50 PM EDT Height 170.2 cm (5' 7 ) 05/23/2024 1:50 PM EDT Body Mass Index 25.84 05/23/2024 1:50 PM EDT Plan of Treatment Health Maintenance Due Date Last Done Comments Breast Cancer Screening 1973 Cervical Cancer Screening: Pap Smear 1994 Zoster Vaccines (1 of 2) 2023 COVID-19 Vaccine (2 - season) 2024 02/09/2021 Influenza Vaccine (#1) 2024 09/06/2015 Hepatitis C Screening 08/11/2024 Social Influencers of Health Screening 08/11/2024 Hepatitis A Vaccines (2 of 2 - Risk 2-dose series) 12/30/2024 06/29/2024 Depression Screening 06/07/2025 06/07/2024 Hypertension/CHF/CAD Annual BMP Blood Test 09/07/2025 09/07/2024, 07/24/2024 Colorectal Cancer Screening: FIT-DNA (Cologuard) 08/27/2026 08/27/2023 Cholesterol Screening (Lipid Panel) 06/16/2029 06/16/2024 DTaP,Tdap,and Td Vaccines (6 - Td or Tdap) 08/10/2030 08/10/2020, 07/16/2007, 07/05/1981, Additional history exists MMR Vaccines Completed 06/29/1978 IPV Vaccines Completed 07/05/1981, 04/1980, 08/24/1978, Additional history exists Hepatitis B Vaccines Completed 08/10/2020, 09/01/2007, 07/16/2007 HIV Screening Completed 02/24/2024 Pneumococcal Vaccine: Pediatrics (0 to 5 Years) and At-Risk Patients (6 to 64 Years) Completed 03/30/2024, 08/23/2008 HIB Vaccines Aged Out No longer eligi ble based on patient's age to complete this topic HPV Vaccines Aged Out No longer eligi ble based on patient's age to complete this topic Meningococcal ACWY Vaccine Aged Out N o longer eligible based on patient's age to complete this topic RSV Immunization Patients Under 20 months Aged Out No longer eligible based on patient's age to complete this topic Varicella Vaccines Aged Out No longer eligible based on patient's age to complete this topic Care Teams Casting Machine Operator Helper Relationship Specialty Start Date End Date Shereen Latham MD [address] [place] [phone] PCP - General 01/13/1996
--- OUTSIDE RECORDS SUMMARY | 2024-12-06 09:48 | XMS_ITS | Encounter Summary ---
Author Organization [employer] Address [address] [facility] 7t [place] [address] Care Team Providers Care Administrative Job Titles Name Role Phone Shereen Latham MD Primary Care Provider Nupur Bullock PharmD Unavailable Sury Benitez Unavailable [phone] JuliusNirali castellanos OD Unavailable [phone] Li Grande MD Unavailable [phone] Anselmo Gates MD Unavailable Margaret Holman Unavailable Herberth Stokes MD Unavailable [phone] Encounter Details Date Type Department Care Team (Latest Contact Info) Description 07/06/2019 Abstract [facility] CONVERSIONS Dental, Provider, DDS Social History Tobacco Use Types Packs/Day Years [...] Management [facility] MEDICINE [address] [place] [address] Nupur Bullock PharmD [address] [place] [address] 12/29/2024 10:30 AM EST Office Visit [facility] MEDICINE 230 [place] [address] Shereen Latham MD 230 [place] [address] 03/29/2025 2:00 PM EDT Office Visit [facility] ADULT DENTAL 230 [place] [address] Heidi, Jenny 230 [place] [address] documented as of this encounter Visit Diagnoses Not on filedocumented in this encounter Care Teams Administrative Job Titles Relationship Specialty Start Date End Date Shereen Latham MD 230 [place] [address] PCP - General Family Medicine 11/02/18 Nupur Bullock, PharmD [address] [place] [address] Pharmacist Internal Medicine 08/09/24 Sury Benitez [address] [place] [address] [address] Pulmonary Disease 09/27/24 Nirali Madrid OD [address] [place] [address] Optometry 10/27/24 Li Grande MD [address] [place] [address] Hematology and Oncology 10/27/24 Anselmo Gates MD [address] [place] [address] Orthopaedic Surgery 10/27/24 Margaret Holman [address] 3rd [place] [address] Cardiology 10/27/24 Herberth Stokes MD [address] [place] [address] Drive 3rd [place] [address] Gastroenterology 10/27/24 Pily Delaney Solution ManagerManagement Specialist 07/22/24 documented as of this encounter
--- OUTSIDE RECORDS SUMMARY | 2024-12-06 09:48 | XMS_ITS | Encounter Summary ---
Author Organization [employer] Address [address] [facility] 7t [place] [address] Care Team Providers Care Technical Analyst Name Role Phone Shereen Latham MD Primary Care Provider [phone] Nupur Bullock PharmD Unavailable Sury Benitez Unavailable [phone] Nirali Madrid OD Unavailable Li Grande MD Unavailable [phone] Anselmo Gates MD Unavailable Margaret Holman Unavailable Herberth Stokes MD Unavailable [phone] Encounter Details Date Type Department Care Team (Late st Contact Info) Description 10/11/2024 Telephone [facility] MEDICINE [address] [place], [place] [phone] Shereen Latham MD [address] [place], [place] [phone] Social History Tobacco Use Types Packs/Day Years [...] 2:30 PM EST Medication Management [facility] MEDICINE [address] [place] [address] Nupur Bullock, PharmD 230 [place] [address] 12/29/2024 10:30 AM EST Office Visit [facility] MEDICINE [address] [place] [address] Shereen Latham MD 230 [place] [address] 03/29/2025 2:00 PM EDT Office Visit [facility] ADULT DENTAL [address] [place] [address] Jenny Gordon 230 [place] [address] documented as of this encounter Visit Diagnoses Not on filedocumented in this encounter Additional Health Concerns Assessment Noted Time PHQ-9 Depression Total Score: 13 024 4:53 PM EDT documented as of this encounter Care Teams Technical Analyst Relationship Specialty Start Date End Date Shereen Latham MD [address] [place] [address] PCP - General Family Medicine 11/02/18 Nupur Bullock, CharleneD [address] [place] [address] Pharmacist Internal Medicine 08/09/24 Sury Benitez [address] [place] [address] Dr [facility] [address] [place] [address] Pulmonary Disease 09/27/24 Nirali Madrid OD [address] [place] [address] Optometry 10/27/24 Li Grande MD [address] [place] [address] Hematology and Oncology 10/27/24 Anselmo Gates MD [address] [place] [address] Orthopaedic Surgery 10/27/24 Margaret Holman [address] 3rd [place] [address] Cardiology 10/27/24 Herberth Stokes MD [address] 3rd [place] [address] Gastroenterology 10/27/24 Pily Delaney RehabilitatorUnmanned Aircraft Systems Roboticist 07/22/24 documented as of this encounter
--- OUTSIDE RECORDS SUMMARY | 2024-12-06 09:48 | XMS_ITS | Encounter Summary ---
Author Organization [employer] Address 75 [facility] 7t [place] [address] Care Team Providers Care Helpdesk Administrator Name Role Phone Shereen Latham MD Primary Care Provider [phone] Nupur Bullock PharmD Unavailable Sury Benitez Unavailable [phone] Nirali Madrid OD Unavailable [phone] Li Grande MD Unavailable [phone] Anselmo Gates MD Unavailable Margaret Holman Unavailable Herberth Stokes MD Unavailable [phone] Reason for Visit * Reason Onset Date Comments Nurse Triage 01/25/2024 Referral 01/25/2024 Encounter Details Date Type Department Care Team (Late st Contact Info) Description 01/25/2024 Telephone [facility] MEDICINE 230 [place], [place] [phone] Shereen Latham MD 230 [place], [place] [phone] Nurse Triage; Referral Social History Tobacco Use Types Packs/Day Years Used Date Smoking Tobacco: Some Days Cigarettes Passive Smoke Exposure: Current Smokeless Tobacco: Never Depression Answer Date Recorded Patient Health Questionnaire-9 Score 18 01/28/2024 Patient Health Questionnaire-9 Score 18 01/28/2024 Last PHQ-9: Questionnaire Data Not on file 0 01/28/2024 Housing Stability Answer Date Recorded What is [...] Answer Date Recorded Patient Health Questionnaire-2 Score 4 01/28/2024 Comments Unknown Sex and Gender Information Value Date Recorded Sex Assigned at Female 09/01/2022 10:14 AM EDT Legal Sex Female 10:14 AM EDT Gender Identity Female 09/01/2022 10:14 AM EDT Sexual Orientation Straight 09/01/2022 10 :14 AM EDT documented as of this encounter Miscellaneous Notes * Telephone Encounter - Zaria Cano RN - 01/25/2024 10:08 AM EDT Call to [facility], reports having right ankle and foot pain x 1 week. Having swelling and difficulty with bearing weight. Per pt started with back and hip pain. That resolved and then radiate to leg. No injury or fall. Per pt not warm to touch. NO fever. Pt having to use a rolling chair to move around. Per pt missed Podiatry appt with Dr. Junior back in December. Pt advised of disposition, declines sick appt offered for today. Pt adivsed to seek WIC , UC or ER as needs to be seen due to worsening pain and inability to bear weight. Pt states will try WIC. Reviewed operating hours and thatwait times vary. Pt wants to be referred to [facility] [address] [place] [address]. Adivsed will send to team to review with PCP. Protocol Used: Ankle Pain (Adult) Protocol-Based Disposition: Go to Office or Video Visit Now Positive Triage Question: * Severe pain (e.g., excruciating, unable to walk) and not improved after 2 hours of pain medicine * All higher-acuity triage questions were negative Care Advice Discussed: * Reasons To Call Back - You become worse * Telephone Encounter - Elizabeth Castano - 01/25/2024 9:50 AM EDT Symptoms: Back Pain - Not From Injury, Body Aches Outcome: Schedule an appointment to be seen within 3 days Reason: pt stated can't walk The caller accepted this outcome documented in this encounter Plan of Treatment Upcoming Encounters Date Type Department Care Team (Late st Contact Info) Description 12/07/2024 2:30 PM EST Medication Management [facility] MEDICINE [address] [place] [address] Nupur Bullock, CharleneD 230 [place] [address] 12/29/2024 10:30 AM EST Office Visit [facility] MEDICINE [address] [place] [address] Shereen Latham MD 230 [place] [address] 03/29/2025 2:00 PM EDT Office Visit [facility] ADULT DENTAL [address] [place] [address] Jenny Gordon [address] [place] [address] documented as of this encounter Visit Diagnoses Not on filedocumented in this encounter Additional Health Concerns Assessment Noted Time PHQ-9 Depression Total Score: 21 023 10:42 AM EST documented as of this encounter Care Teams Helpdesk Administrator Relationship Specialty Start Date End Date Shereen Latham MD 230 [place] [address] PCP - General Family Medicine 11/02/18 Nupur Bullock, CharleneD 230 [place] [address] Pharmacist Internal Medicine 08/09/24 Sury Benitez [address] [place] [address] Dr [facility] 103 [place] [address] Pulmonary Disease 09/27/24 Nirali Madrid OD 267 [place] [address] Optometry 10/27/24 Li Grande MD 575 [place] [address] Hematology and Oncology 10/27/24 Anselmo Gates MD [address] [place] [address] Orthopaedic Surgery 10/27/24 Margaret Holman [address] 3rd [place] [address] Cardiology 10/27/24 Herberth Stokes MD [address] [place] [address] Gastroenterology 10/27/24 Pily Delaney Manager E CommerceLadle Repairer 07/22/24 documented as of this encounter
--- OUTSIDE RECORDS SUMMARY | 2024-12-06 09:48 | XMS_ITS | Encounter Summary ---
Author Organization [employer] Address [address] [facility] 7t [place] [address] Care Team Providers Care Shield Cleaner Name Role Phone Shereen Latham MD Primary Care Provider Nupur Bullock PharmD Unavailable [phone] Sury Benitez Unavailable [phone] JuliusNirali castellanos OD Unavailable Li Grande MD Unavailable [phone] Anselmo Gates MD Unavailable Margaret Holman Unavailable Herberth Stokes MD Unavailable [phone] Encounter Details Date Type Department Care Team (Latest Contact Info) Description 08/16/2021 Abstract [facility] CONVERSIONS Dental, Provider, DDS Social History Tobacco [...] Description 12/07/2024 2:30 PM EST Medication Management [facility] MEDICINE [address] [place] [address] Nupur Bullock, PharmD [address] [place] [address] 12/29/2024 10:30 AM EST Office Visit [facility] MEDICINE [address] [place] [address] Shereen Latham MD 230 [place] [address] 03/29/2025 2:00 PM EDT Office Visit [facility] ADULT DENTAL [address] [place] [address] Heidi, Jenny [address] [place] [address] documented as of this encounter Visit Diagnoses Not on filedocumented in this encounter Care Teams Shield Cleaner Relationship Specialty Start Date End Date Shereen Latham MD 230 [place] [address] PCP - General Family Medicine 11/02/18 Nupur Bullock PharmD 230 [place] [address] Pharmacist Internal Medicine 08/09/24 Sury Benitez [address] [place] [address] [address] Pulmonary Disease 09/27/24 Nirali Madrid OD [address] [place] [address] Optometry 10/27/24 Li Grande MD [address] [place] [address] Hematology and Oncology 10/27/24 Anselmo Gates MD [address] [place] [address] Orthopaedic Surgery 10/27/24 Margaret Holman [address] 3rd [place] [address] Cardiology 10/27/24 Herberth Stokes MD [address] 3rd [place] [address] Gastroenterology 10/27/24 Pily Delaney Combined Rail OperatorKnowledge Management Consultant 07/22/24 documented as of this encounter
--- OUTSIDE RECORDS SUMMARY | 2024-12-06 09:48 | XMS_ITS | Encounter Summary ---
Author Organization [employer] Address [address] [facility] 7t [place] [address] Care Team Providers Care Automotive Alignment Specialist Name Role Phone Shereen Latham MD Primary Care Provider [phone] Nupur Bullock PharmD Unavailable Sury Benitez Unavailable [phone] Nirali Madrid OD Unavailable Li Grande MD Unavailable [phone] Anselmo Gates MD Unavailable Margaret Holman Unavailable Herberth Stokes MD Unavailable [phone] Encounter Details Date Type Department Care Team (Late st Contact Info) Description 07/27/2023 Orders Only [facility] MED[facility]INE [address] [place], [place] [phone] Shereen Latham MD [address] [place], [place] [phone] Hypomagnesemia Social History Tobacco Use Types Packs/Day Years Used Date Smoking Tobacco: Some Days Cigarettes Passive Smoke Exposure: Current Smokeless Tobacco: Never Depression Answer Date Recorded Patient Health Questionnaire-9 Score 10 07/14/2023 Depression Answer Date Recorded Patient Health Questionnaire-2 Score 2 07/14/2023 Comments Unknown Sex and Gender Information Value [...] Description 12/07/2024 2:30 PM EST Medication Management [facility] [address] [place] [address] Nupur Bullock PharmD [address] [place] [address] 12/29/2024 10:30 AM EST Office Visit [facility] [address] [place] [address] Shereen Latham MD [address] [place] [address] 03/29/2025 2:00 PM EDT Office Visit [facility] ADULT DENTAL [address] [place] [address] Heidi, Jenny [address] [place] [address] documented as of this encounter Visit Diagnoses Diagnosis Hypomagnesemia Disorders of magnesium metabolism documented in this encounter Additional Health Concerns Assessment Noted Time PHQ-9 Depression Total Score: 10 023 10:27 AM EDT documented as of this encounter Care Teams Automotive Alignment Specialist Relationship Specialty Start Date End Date Shereen Latham MD [address] [place] [address] PCP - General Family Medicine 11/02/18 Nupur Bullock, PharmD [address] [place] [address] Pharmacist Internal Medicine 08/09/24 Sury Benitez [address] [place] [address] [place] [address] [place] [address] Pulmonary Disease 09/27/24 Nirali Madrid OD [address] [place] [address] Optometry 10/27/24 Li Grande MD [address] [place] [address] Hematology and Oncology 10/27/24 Anselmo Gates MD [address] [place] [address] Orthopaedic Surgery 10/27/24 Margaret Holman [address] 3rd [place] [address] Cardiology 10/27/24 Herberth Stokes MD [address] 3rd [place] [address] Gastroenterology 10/27/24 Pily Delaney Ross Carrier DriverInjection Specialist 07/22/24 documented as of this encounter
--- OUTSIDE RECORDS SUMMARY | 2024-12-06 09:48 | XMS_ITS | Encounter Summary ---
Author Organization [employer] Address [address] [facility] 7t [place] [address] Care Team Providers Care Slide Forming Machine Operator Name Role Phone Shereen Latham MD Primary Care Provider [phone] Nupur Bullock PharmD Unavailable Sury Benitez Unavailable [phone] Nirali Madrid OD Unavailable Li Grande MD Unavailable [phone] Anselmo Gates MD Unavailable Margaret Holman Unavailable Herberth Stokes MD Unavailable [phone] Encounter Details Date Type Department Care Team (Late st Contact Info) Description 11/16/2022 Abstract [facility] MEDICINE [address] [place], [place] [phone] Shereen Latham MD [address] [place], [place] [phone] Social History Tobacco Use Types Packs/Day Years Used Date Smoking Tobacco: Never Assessed Comments Unknown Sex and Gender Information Value Date Recorded Sex Assigned at Female 09/01/2022 10:14 AM EDT Legal Sex Female 10:14 AM EDT Gender Identity Female 09/01/2022 10:14 AM EDT Sexual Orientation Straight 09/01/2022 10 :14 AM EDT documented as of this encounter Miscellaneous Notes * Assessment & Plan Note - Shereen Latham MD - 11/16/2022 10:57 AM EST Associated Problem(s): Atypical glandular cells on cervical Pap smear -Abnormal pap smear January 2011 with 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 Per Dr. Krish Loomis's note from [facility], pt was due for repeat colposcopy in 2011. -Total Vaginal Hysterectomy 08/27/17 ('with MONCIA 2 pathology and negative resection margins'). Per note dated 11/27/17 Dr. Reyes; 'patient to discontinue PAP screening'. -Vaginal pap NILM HPV negative 08/2018, per not no further paps indicated * Assessment & Plan Note - Shereen Latham MD - 11/16/2022 10:56 AM EST Associated Problem(s): Fibromyalgia Pt has chronic pain syndrome. Multiple work up are normal. There is moderate evidence for efficacy for aerobic exercise, cognitive behavioral therapy, patienteducation, and group therapy. There is also evidence for acupuncture, hypnotherapy, biofeedback andbalneotherapy. There is some weaker evidence for chiropractic therapy, massage, electrotherapy and u ltrasound. There is no evidence that trigger point injections or opioids are beneficial in fibromyalgia. Pharmacologic options include muscle relaxants, gabapentin, pregabalin, and duloxetine, but are thelest effective of all strategies and dangerous given active uncontrolled substance abuse. She is discontinued Lyrica and reports it is not healing. She did not have response to gabapentin and reports side effects were too much. She is starting Cymbalta with psychiatry. Pt was counseled on the importance of exercise, adequate sleep, control of depression and or anxiety and stress management. * Assessment & Plan Note - Shereen Latham MD - 11/16/2022 10:55 AM EST Associated Problem(s): Carpal tunnel syndrome Nerve conduction study 12/12/2021 reveals severe carpal tunnel syndrome. Nerve conduction EMG study: Severe end-stage right carpal tunnel syndrome. Severe carpal tunnel syndrome on the left. EMG of both upper extremities including C5-T1 innervatedmuscles shows denervation in the abductor pollicis brevis muscle bilaterally with no voluntary motor units identified in the right APB consistent with severe end-stage peripheral neuropathy. Risk factors for neuropathy include alcohol use. Differential includes mononeuropathy from entrapment vs other such as EtOH toxicity. -Will check TSH), HIV, lyme, CBC, A1c, B12, SPEP, UPEP, MONTY, sed rate, thiamine and folate. Multiple of these labs normal in past but > 1 year ago. -She saw Dr. Rousseau on 01/03/2022 she had for right surgery 02/10/2022 and scheduled for left surgery * Assessment & Plan Note - Shereen Latham MD - 11/16/2022 10:55 AM EST Associated Problem(s): Hyperaldosteronism (CMS/HCC) (Resolved 07/29/2023) Seen by [facility] Endocrinology 04/03/2022. Initially seen 12/2021 for hyperaldosteronism. Labs [facility] 10/2021 aldosterone 8, plasma renin 0.11, aldosterone/renin 72.7. She was likely on spironolactone and lisinopril at time of labs. Advise no spironolactone for 6 weeks and recheck renin aldosterone levels with renal panel and magnesium in cold roll catcher. 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 -S/p [facility] started Oct, completed [...] was BIRADS 2 benign, next due 10/2022. * Assessment & Plan Note - Shereen Latham MD - 11/16/2022 10:53 AM EST Associated Problem(s): Transaminitis Ultrasound ordered 06/23 for left flank pain. On 09/02/22 Pt had ultrasound sound for abdominal pain at [facility]. Ultrasound showed diffusely echogenic parenchyma with focal sparing around the gallbladder. No suspicious lesions. Impression showed liver likely representing hepatic steatosis and non- obstructing right kidney stone. documented in this encounter Plan of Treatment Upcoming Encounters Date Type Department Care Team (Late st Contact Info) Description 12/07/2024 2:30 PM EST Medication Management [facility] MEDICINE [address] [place] [address] Nupur Bullock, PharmD [address] [place] [address] 12/29/2024 10:30 AM EST Office Visit [facility] MEDICINE [address] [place] [address] Shereen Latham MD [address] [place] [address] 03/29/2025 2:00 PM EDT Office Visit [facility] ADULT DENTAL [address] [place] [address] Heidi, Jenny [address] [place] [address] documented as of this encounter Visit Diagnoses Not on filedocumented in this encounter Care Teams Slide Forming Machine Operator Relationship Specialty Start Date End Date Shereen Latham MD [address] [place] [address] PCP - General Family Medicine 11/02/18 Nupur Bullock PharmD [address] [place] [address] Pharmacist Internal Medicine 08/09/24 Sury Benitez [address] [place] [address] Dr [facility] [address] [place] [address] Pulmonary Disease 09/27/24 Nirali Madrid OD [address] [place] [address] Optometry 10/27/24 Li Grande MD [address] [place] [address] Hematology and Oncology 10/27/24 Anselmo Gates MD [address] [place] [address] Orthopaedic Surgery 10/27/24 Margaret Holman [address] 3rd [place] [address] Cardiology 10/27/24 Herberth Stokes MD [address] [place] [address] Gastroenterology 10/27/24 Pily Delaney De Icer InstallerDairy Cattle Farm Worker 07/22/24 documented as of this encounter
--- OUTSIDE RECORDS SUMMARY | 2024-12-06 09:48 | XMS_ITS | Encounter Summary ---
Author Organization [employer] Address [address] [facility] 7t [place] [address] Care Team Providers Care Zoning Engineer Name Role Phone Shereen Latham MD Primary Care Provider [phone] Nupur Bullock PharmD Unavailable Sury Benitez Unavailable [phone] Nirali Madrid OD Unavailable Li Grande MD Unavailable [phone] Anselmo Gates MD Unavailable Margaret Holman Unavailable Herberth Stokes MD Unavailable [phone] Reason for Visit * Reason Onset Date Comments Results 09/07/2024 Encounter Details Date Type Department Care Team (Late st Contact Info) Description 09/07/[address] [facility] MED[facility] [address] [place] [address] Shereen Latham MD [address] [place] [address] Results Social History Tobacco Use Types Packs/Day [...] encounter Miscellaneous Notes * Telephone Encounter - Sandeep Chapman - 09/07/2024 9:58 AM EST Tc from pt requesting to discuss lab results with PCP ( hemoglobin ) . Please contact at [phone] documented in this encounter Plan of Treatment Upcoming Encounters Date Type Department Care Team (Late st Contact Info) Description 12/07/2024 2:30 PM EST Medication Management [facility] [address] [place] [address] Nupur Bullock PharmD [address] [place] [address] 12/29/2024 10:30 AM EST Office Visit [facility] [address] [place] [address] Shereen Latham MD [address] [place] [address] 03/29/2025 2:00 PM EDT Office Visit [facility] ADULT DENTAL [address] [place] [address] Heidi, Jenny [address] [place] [address] documented as of this encounter Visit Diagnoses Not on filedocumented in this encounter Additional Health Concerns Assessment Noted Time PHQ-9 Depression Total Score: 13 024 4:53 PM EDT documented as of this encounter Care Teams Zoning Engineer Relationship Specialty Start Date End Date Shereen Latham MD [address] [place] [address] PCP - General Family Medicine 11/02/18 Nupur Bullock, CharleneD [address] [place] [address] Pharmacist Internal Medicine 08/09/24 Sury Benitez [address] [place] [address] [place] [address] [place] [address] Pulmonary Disease 09/27/24 Nirali Madrid OD [address] [place] [address] Optometry 10/27/24 Li Grande MD [address] [place] [address] Hematology and Oncology 10/27/24 Anselmo Gates MD [address] [place] [address] Orthopaedic Surgery 10/27/24 Margaret Holman [address] 3rd [place] [address] Cardiology 10/27/24 Herberth Stokes MD [address] 3rd [place] [address] Gastroenterology 10/27/24 Pily Delaney Grinding And Polishing LaborerExtermination Inspector 07/22/24 documented as of this encounter
--- OUTSIDE RECORDS SUMMARY | 2024-12-06 09:48 | XMS_ITS | Encounter Summary ---
Author Organization [employer] Address [address] [facility] 7t [place] [address] Care Team Providers Care Digital Campaign Manager Name Role Phone Shereen Latham MD Primary Care Provider [phone] Nupur Bullock PharmD Unavailable [phone] Sury Benitez Unavailable [phone] Nirali Madrid OD Unavailable Li Grande MD Unavailable [phone] Anselmo Gates MD Unavailable Margaret Holman Unavailable Herberth Stokes MD Unavailable [phone] Reason for Referral * Consultation (Routine) - Authorized Specialty Diagnoses / Procedures Referred By Contanna nelson Referred To Contact Pharmacy Diagnoses Benign essential hypertension Shereen Latham MD [address] [place] [address] Phone: tel: fax: Referral ID Status Reason Start Date Expiration Date Visits Requested Visits Authorized [id number] Authorized Consult and Treat 11/11/2024 11/11/2025 6 6 Reason for Visit * Reason Onset Date Comments Nurse Triage 11/10/2024 Encounter Details Date Type Department Care Team (Late st Contact Info) Description 11/10/2024 Telephone [facility] MEDICINE [address] [place] [address] Shereen Latham MD [address] [facility] [place] [address] Nurse Triage Social History Tobacco Use Types [...] encounter Miscellaneous Notes * Telephone Encounter - Cira Martinez RN - 11/11/2024 12:59 PM EST TC placed to pt to inform that PCP would like to hold the Carvedilol antihypertensive medication for now due to ongoing s/e. Pt also advised that a referral has been placed to [facility] Management to helpassist with blood pressure medication control. Pt will get a call to schedule. Pt agreeable to thisplan of care and stated understanding. * Telephone Encounter - Cira Martinez RN - 11/11/2024 11:04 AM EST TC placed to pt who in regards to BP medications and the pt confirms that she took both medicationslast night, the Losartan first and then the Carvedilol two hours later. The pt states that after taking the Losartan she had minimal to no symptoms but after taking the Carvedilol she had chest tightness, palpitations, left sided discomfort and mild SOB. Pt ARIEL with PCP was this week on 11/09/2024 and pt was told to take blood pressure medications in this order to see which was causing her symptoms. (Please also see triage call from 11/10). Pt is currently prescribed all antihypertensive medications through PCP. Pt would like this information sent to Dr. Gipson's for advisement on how to proceedgoing forward with the Carvedilol medication. * Telephone Encounter - Rona Quinones RN - 11/10/2024 10:26 AM EST called pt to triage, spoke to pt. pt states had appt with PCP yesterday and discussed her BP medications. pt was told by PCP to take her Losartan first yesterday PM and then about 2 hours later take the Carvedilol to see which might be causing her the symptoms. pt states for a while now, having symptoms after taking her BP medications, chest tightness, chest pain, and mild sob. pt states soon after she took the Carvedilol last night she started with the symptoms. pt denies current symptoms and wants her PCP notified. will task to the team nurses to address with her PCP as soon as possible. ptalso states having sensation of strong odor when she breathes, in her head. pt denies illness symptoms, fevers, nasal discharge, or other associated symptoms. advised home care: good oral hygiene, fluids, monitor symptoms, and call back as needed. pt understands and agrees with plan. insurance verified. Protocol Used: Chest Pain (Adult) Protocol-Based Disposition: Home Care Positive Triage Question: * Chest pain(s) lasting a few seconds * All higher-acuity triage questions were negative Care Advice Discussed: * Reasons To Call Back - You become worse * Telephone Encounter - Kalpesh Cordoba - 11/10/2024 9:28 AM EST Symptom: Medication Reaction Outcome: Schedule an urgent appointment (within 1 hour) or talk to a nurse or provider soon Reason: When she breathes she can feel a foul odor Please contact pt at [phone]. documented in this encounter Plan of Treatment Upcoming Encounters Date Type Department Care Team (Late st Contact Info) Description 12/07/2024 2:30 PM EST Medication Management [facility] MED[facility]INE [address] [place] [address] Nupur Bullock, PharmD [address] [place] [address] 12/29/2024 10:30 AM EST Office Visit [facility] MEDICINE [address] [place] [address] Shereen Latham MD [address] [place] [address] 03/29/2025 2:00 PM EDT Office Visit [facility] ADULT DENTAL [address] [place] [address] Jenny Gordon [address] [place] [address] Scheduled Referrals Name Type Priority Associated Diagnoses Orde r Schedule Referral to Pharmacy CDTM Outpatient Referral Routine Benign essential hypertension Ordered: 11/11/2024 documented as of this encounter Visit Diagnoses Diagnosis Benign essential hypertension Essential hypertension, benign documented in this encounter Additional Health Concerns Assessment Noted Time PHQ-9 Depression Total Score: 13 024 4:53 PM EDT documented as of this encounter Care Teams Digital Campaign Manager Relationship Specialty Start Date End Date Shereen Latham MD [address] [place] [address] PCP - General Family Medicine 11/02/18 Nupur Bullock, CharleneD [address] [place] [address] Pharmacist Internal Medicine 08/09/24 Sury Benitez [address] [place] [address] [facility] [address] [place] [address] Pulmonary Disease 09/27/24 Nirali Madrid OD [address] [place] [address] Optometry 10/27/24 Li Grande MD [address] [place] [address] Hematology and Oncology 10/27/24 Anselmo Gates MD [address] [place] [address] Orthopaedic Surgery 10/27/24 Margaret Holman [address] [facility] 3rd [place] [address] Cardiology 10/27/24 Herberth Stokes MD [address] [facility] 3rd [place] [address] Gastroenterology 10/27/24 Pily Delaney Performance EngineerProbate Lawyer 07/22/24 documented as of this encounter
--- OUTSIDE RECORDS SUMMARY | 2024-12-06 09:48 | XMS_ITS | Clinical Summary ---
Author Organization [employer] Address [address] [place] [address] Care Team Providers Care Tarring Machine Operator Name Role Phone Shereen Latham MD Primary Care Provider [phone] Nupur Bullock PharmD Unavailable Sury Benitez Unavailable [phone] JuliusNirali castellanos OD Unavailable Li Grande MD Unavailable [phone] Anselmo Gates MD Unavailable Margaret Holman Unavailable Herberth Stokes MD Unavailable [phone] Allergies Active Allergy Reactions Criticality Noted Date Comments Amoxicillin Hives,Itching High 02/21/2014 Other reaction(s): itchy, red skin Other Reaction(s): rash, rash/itching Hydrocodone Hives,Itching Low 12/13/2018 Latex Hives,Itching Low 02/20/2023 Other reaction(s): itching Sulfamethoxazole Rash High 08/09/2015 Trimethoprim Hives,Itching,Rash High 08/09/2015 Medications * This document contains information received from the source organization and may not represent a complete record from that organization. Vitamin D High Potency 25 MCG (1000 UT) capsuleIndicati ons:Vitamin D deficiency Take 1 capsule (25 mcg) by mouth in the morning. 90 capsule 3 10/22/20 23 Active Spacer/Aero-Hol ding Chambers (AeroChamber MV) inhalerIndicati ons:Mild intermittent reactive airway disease without complication Use as instructed 1 each 2 02/12/20 24 Active omeprazole (PriLOSEC) [address] capsuleIndicati ons:Gastroesoph ageal reflux disease, unspecified whether esophagitis present TAKE 1 CAPSULE BY MOUTH EVERY MORNING BEFORE BREAKFAST 90 capsule 1 06/30/20 24 Active cetirizine (ZyrTEC) 10 MG tabletIndicatio ns:Nasal congestion TAKE 1 TABLET BY MOUTH EVERY DAY NEEDED FOR ALLERGIES OR RHINITIS 90 tablet 1 07/07/20 24 Active allopurinol (Zyloprim) 100 MG tabletIndicatio ns:Gout, unspecified cause, unspecified chronicity, unspecified site Take 1 tablet (100 mg) by mouth Once per day. 90 tablet 2 07/13/20 24 Active thiamine (Vitamin B-1) 100 MG tabletIndicatio ns:Alcohol abuse TAKE 1 TABLET BY MOUTH EVERY MORNING 90 tablet 3 07/14/20 24 Active folic acid (Folvite) 1 MG tabletIndicatio ns:Alcohol abuse TAKE 1 TABLET BY MOUTH EVERY MORNING 90 tablet 3 08/03/20 24 Active lidocaine (Lidoderm) 5 % patchIndication s:Chronic pain of both knees APPLY 1 PATCH TOPICALLY TO SKIN, LEAVE ON FOR 12 HOURS AND OFF FOR 12 HOURS DIRECTED NEEDED FOR PAIN 30 patch 3 08/27/20 24 Active Ventolin HFA 108 (90 Base) MCG/ACT inhalerIndicati ons:Mild intermittent asthma, unspecified whether complicated INHALE 2 PUFFS FOUR TIMES DAILY NEEDED FOR SHORTNESS OF BREATH 18 g 10/18/20 24 Active fluticasone (Flonase) 50 MCG/ACT nasal sprayIndication s:Cough in adult patient Administer 1 spray into each nostril Once per day. Shake gently. Before first use, prime pump. After use, clean tip and replace cap. 16 g 2 10/20/20 24 025 Active losartan (Cozaar) 25 MG tabletIndicatio ns:Benign essential hypertension TAKE 1 TABLET BY MOUTH TWICE DAILY IN THE MORNING AND IN THE EVENING 180 tablet 10/21/20 24 Active spironolactone (Aldactone) 25 MG tabletIndicatio ns:Benign essential hypertension Take one half tablet by mouth once daily Active magnesium oxide (Mag-Ox) 400 MG tabletIndicatio ns:Hypomagnesem ia TAKE 1 TABLET BY MOUTH THREE QID 360 tablet 3 11/09/19 25 Active furosemide (Lasix) 40 MG tabletIndicatio ns:Benign essential hypertension TAKE 1 TABLET BY MOUTH EVERY MORNING 90 tablet 1 11/10/19 25 Active Acetaminophen Extra Strength 500 MG tabletIndicatio ns:Pain TAKE 1 TABLET BY MOUTH EVERY 6 TO 8 HOURS NEEDED FOR PAIN OR FOR FEVER 60 tablet 11/23/19 25 Active albuterol (2.5 MG/3ML) 0.083% nebulizer solution INHALE 1 AMPULE USING A NEBULIZER EVERY 4 TO 6 HOURS NEEDED FOR WHEEZING OR SHORTNESS OF BREATH 11/11/19 25 Active Advair HFA 115-21 MCG/ACT inhaler INHALE 2 PUFFS BY MOUTH EVERY TWELVE HOURS, RINSE MOUTH AFTER USING. 11/14/19 25 Active naproxen (Naprosyn) 500 MG tablet Take 1 tablet by mouth 2 times daily. 11/21/19 25 Active predniSONE (Deltasone) 20 MG tablet Take 1 tablet by mouth Once per day. 11/21/19 25 Active furosemide (Lasix) 40 MG tabletIndicatio ns:Benign essential hypertension Take 1 tablet (40 mg) by mouth Once per day. 30 tablet 3 07/13/20 24 025 Discontinued magnesium oxide (Mag-Ox) 400 MG tabletIndicatio ns:Hypomagnesem ia TAKE 1 TABLET BY MOUTH THREE TIMES DAILY IN THE MORNING, EVENING, AND BEDTIME 270 tablet 1 10/12/20 24 025 Discontinued(R eorder (will not trigger notification to Pharmacy)) Acetaminophen Extra Strength 500 MG tabletIndicatio ns:Pain TAKE 1 TABLET BY MOUTH EVERY 6 TO 8 HOURS NEEDED FOR PAIN OR FEVER 60 tablet 10/18/20 24 025 Discontinued carvedilol (Coreg) 6.25 MG tabletIndicatio ns:Benign essential hypertension TAKE 1 TABLET BY MOUTH TWICE DAILY IN THE MORNING AND IN THE EVENING 180 tablet 10/21/20 24 025 Discontinued(D iscontinued by another clinician) fluticasone furoate (Arnuity Ellipta) 200 MCG/ACT inhalerIndicati ons:Mild intermittent reactive airway disease without complication Inhale 1 puff Once per day. Rinse mouth with water after use to reduce aftertaste and incidence of candidiasis. Do not swallow. 025 Discontinued(D iscontinued by another clinician) Active Problems Problem Noted Date Diagnosed Date (HFpEF) heart failure with preserved ejection fr action 07/13/2024 Gout 07/13/2024 Overview (10/27/2024): Saw CDTM on 08/16/24 who recommended assessing patient's uric acid level and titrate allopurinol if needed to reach serum uric acid level <6 mg/dL(2020 [place] [employer] guideline for the management of gout: titrate allopurinol in 100 mg increments every 2 to 4 weeks to achieve the desired serum uric acid level, doses greater than 300 mg/day are often needed to reach desired uric acid target). -08/24/24 pt reports still taking Allopurinol, recommended follow-up with rheumatology. >>OVERVIEW FOR ACUTE GOUT OF RIGHT KNEE WRITTEN ON 08/24/2024 9:45 AM BY JOLIE PA [facility] (07/25/2024 - 07/27/2024) Patient presented with swelling, pain, and warmth in the right knee. Patient had a low fever (100.3 F) and elevated WBC (85030 cells/uL), CRP, and ESR. Orthopedic surgery consulted who requested admission with IV antibiotics, received vancomycin and ceftriaxone. Found to have SIRS due to right knee gout, sepsis ruled out with thoracentesis. Antibiotics were discontinued, treated with steroids and colchicine. Received replacement for hypomagnesemia. Physical therapy recommended short-term rehab, however the patient would like to be discharged with VNA. Advised to follow with PCP, discharged home with health service. Medication changes that occurred during hospitalization include: Added Prednisone 40 mg by mouth once daily for 5 days. [facility] ED (08/07/2024) Patient presented for right knee gout exacerbation. Patient stated that they have not been compliant with low uric purine diet, that they have been taking allopurinol, and finished the prednisone. Patient was recommended to follow with their PCP and to continue taking allopurinol. Provided another course of steroids and colchicine. Discharged home with self care. Medication changes that occurred during hospitalization include: Added Prednisone 60 mg by mouth once daily for 5 days and Colchicine 0.6 mg by mouth twice daily for 3 days. 08/24/24 Still taking Allopurinol, encouraged follow-up with rheumatology. Assessment & Plan (10/27/2024 12:14 PM EST): >>ASSESSMENT AND PLAN FOR GOUT WRITTEN ON 08/24/2024 9:41 AM BY JOLIE PA Saw CDTM on 08/16/24 who recommended assessing patient's uric acid level and titrate allopurinol if needed to reach serum uric acid level <6 mg/dL(2020 [place] [employer] guideline for the management of gout: titrate allopurinol in 100 mg increments every 2 to 4 weeks to achieve the desired serum uric acid level, doses greater than 300 mg/day are often needed to reach desired uric acid target). -08/24/24 pt reports still taking Allopurinol, recommended follow-up with rheumatology. >>ASSESSMENT AND PLAN FOR ACUTE GOUT OF RIGHT KNEE WRITTEN ON 08/24/2024 9:45 AM BY JOLIE PA [facility] (07/25/2024 - 07/27/2024) Patient presented with swelling, pain, and warmth in the right knee. Patient had a low fever (100.3 F) and elevated WBC (20466 cells/uL), CRP, and ESR. Orthopedic surgery consulted who requested admission with IV antibiotics, received vancomycin and ceftriaxone. Found to have SIRS due to right knee gout, sepsis ruled out with thoracentesis. Antibiotics were discontinued, treated with steroids and colchicine. Received replacement for hypomagnesemia. Physical therapy recommended short-term rehab, however the patient would like to be discharged with VNA. Advised to follow with PCP, discharged home with health service. Medication changes that occurred during hospitalization include: Added Prednisone 40 mg by mouth once daily for 5 days. [facility] ED (08/07/2024) Patient presented for right knee gout exacerbation. Patient stated that they have not been compliant with low uric purine diet, that they have been taking allopurinol, and finished the prednisone. Patient was recommended to follow with their PCP and to continue taking allopurinol. Provided another course of steroids and colchicine. Discharged home with self care. Medication changes that occurred during hospitalization include: Added Prednisone 60 mg by mouth once daily for 5 days and Colchicine 0.6 mg by mouth twice daily for 3 days. 08/24/24 Still taking Allopurinol, encouraged follow-up with rheumatology. Tubular adenoma 07/12/2024 Overview (07/13/2024): -completed colonoscopy 07/11/24, showed tubular adenoma x 3 Assessment & Plan (07/13/2024 2:17 PM EDT): -completed colonoscopy 07/11/24, showed tubular adenoma x 3 Flank pain 06/29/2024 History of chronic CHF 06/29/2024 Overview (08/24/2024): -Echocardiogram done 10/18/2021 had shown EF 30-35%, mild LVH. She did not come for cardiology follow-up after that finding. A stress test at that time was incomplete. -Dx with acute congestive heart failure with reduced EF during admission to [facility] 06/22/24. - She was started on Lasix 40 mg daily, Aldactone 25 mg daily, losartan 25 mg b.i.d. and carvedilol 6.25 mg b.i.d.. She says that her blood pressure was running low normal stopped her Aldactone. But restarted by cardiology aldactone, currently at 12.5 mg daily. - an echocardiogram was obtained that showed EF 55-60%, small loculated pericardial effusion and indeterminate diastolic function -Seen by [facility] Cardiology 08/01/24 : exercise nuclear stress test ordered for further evaluation of her Congestive heart failure and prior cardiomyopathy. Informed her that the stress test is in 3 parts and that she will need to attend all 3. Her cardiomyopathy may be related to uncontrolled hypertension, alcohol use. Ischemia will need to be ruled out. Cardiology follow-up in 2-3 months, sooner if needed. -Has upcoming appt with Cardiology and echo ordered. Assessment & Plan (08/24/2024 9:42 AM EDT): -Echocardiogram done 10/18/2021 had shown EF 30-35%, mild LVH. She did not come for cardiology follow-up after that finding. A stress test at that time was incomplete. -Dx with acute congestive heart failure with reduced EF during admission to [facility] 06/22/24. - She was started on Lasix 40 mg daily, Aldactone 25 mg daily, losartan 25 mg b.i.d. and carvedilol 6.25 mg b.i.d.. She says that her blood pressure was running low normal stopped her Aldactone. But restarted by cardiology aldactone, currently at 12.5 mg daily. - an echocardiogram was obtained that showed EF 55-60%, small loculated pericardial effusion and indeterminate diastolic function -Seen by [facility] Cardiology 08/01/24 : exercise nuclear stress test ordered for further evaluation of her Congestive heart failure and prior cardiomyopathy. Informed her that the stress test is in 3 parts and that she will need to attend all 3. Her cardiomyopathy may be related to uncontrolled hypertension, alcohol use. Ischemia will need to be ruled out. Cardiology follow-up in 2-3 months, sooner if needed. -Has upcoming appt with Cardiology and echo ordered. Assessment & Plan (07/13/2024 2:18 PM EDT): Dx with acute congestive heart failure with reduced EF during recent admission to [facility] 06/22/24. Pt was volume overloaded therefore treated with IV Lasix, Aldactone and losartan. - an echocardiogram was obtained that showed EF 55-60%, small loculated pericardial effusion and indeterminate diastolic function -patient responded to Lasix, BNP improved from 472 to 105, was followed closely by Cardiology in-patient -referred to Collaborative Drug Therapy Managment Program with our KAL[facility] Barrow for medication management 06/29/24 -referred to Cardiology for f/u 06/29/24 -Still awaiting appt 07/13/24 Assessment & Plan (06/29/2024 4:09 PM EDT): Dx with acute congestive heart failure with reduced EF during recent admission to [facility] 06/22/24. Pt was volume overloaded therefore treated with IV Lasix, Aldactone and losartan. - an echocardiogram was obtained that showed EF 55-60%, small loculated pericardial effusion and indeterminate diastolic function -patient responded to Lasix, BNP improved from 472 to 105, was followed closely by Cardiology in-patient -referred to Collaborative Drug Therapy Managment Program with our KALA Barrow for medication management 06/29/24 -referred to Cardiology for f/u 06/29/24 Hydradenitis 06/29/2024 Overview (06/29/2024): -prescribed doxycycline Assessment & Plan (06/29/2024 4:47 PM EDT): -prescribed doxycycline SOB (shortness of breath) 06/29/2024 Overview (09/14/2024): -Followed by [facility] Pulmonology with Sury Benitez NP 09/12/24: symptoms are likely multifactorial with pulmonary and cardiac etiologies. -empirically trial ICS 02/2024. Discontinued 09/2024 after PFTs and no reported improvement in symptoms -02/2024 RAST test ordered to assess for allergic contribution. -PFTs circa 02/2024 which revealed a restrictive ventilatory defect consistent with mild restrictive lung disease. The patient also has a significantly decreased expiratory reserve volume likely secondary to an elevated BMI. No evidence of obstruction and no significant response to bronchodilators noted. -Prior CXR unremarkable. -chest CT ordered 09/12/24 by pulmonary to evaluate for any underlying parenchymal conditions contributing to restrictive defect -follow up pulm after CT and stress test ordered by cardiology Assessment & Plan (08/24/2024 9:46 AM EDT): -referred to pulmonology 06/29/24 -Seen in pulmonology with Sury Benitez NP 08/01/24: symptoms are likely multifactorial with pulmonary and cardiac etiologies. Will send for PFT to assess for any obstructive defect. Will empirically trial ICS. Discussed importance of good oral hygiene to prevent thrush. Will also send for RAST to assess for allergic contribution. All questions were answered and patient is in agreement of plan. Will follow up in 6-8 weeks or sooner if needed. -pt reports she saw her hospital intern and is continuing management with them. . Assessment & Plan (07/13/2024 2:15 PM EDT): -referred to pulmonology 06/29/24 -Pt reports she has appt to see hospital intern 08/01/24 Assessment & Plan (06/29/2024 4:49 PM EDT): -referred to pulmonology 06/29/24 Dyspepsia 06/20/2024 Assessment & Plan (06/20/2024 4:00 PM EDT): Sec to colchicine DC colchicine, start Sucralfate x 1w Gout flare 05/11/2024 Overview (07/13/2024): Seen by butt presser Dr. Bernstein 05/11/24 or evaluation of acute gout affecting left foot. Per patient this is her 1st attack. She has been taking prednisone for the last 10-15 days without resolution of current gout attack. Discussed gout and its management. Likely current attack is prolonged due to ongoing excessive alcohol consumption. Advised patient to cut down alcohol consumption and stop. -Start Medrol taper for relief -Continue colchicine 0.3 mg Twice daily for prophylaxis -Continue allopurinol 100 mg daily, plan to repeat acid level before next visit and increase allopurinol dose -Patient is on chlorthalidone which is known to increase uric acid levels. I suggest stopping chlorthalidone and switching to another antihypertensive -Labs showed negative acid. Assessment & Plan (07/13/2024 2:21 PM EDT): Seen by butt presser Dr. Bernstein 05/11/24 or evaluation of acute gout affecting left foot. Per patient this is her 1st attack. She has been taking prednisone for the last 10-15 days without resolution of current gout attack. Discussed gout and its management. Likely current attack is prolonged due to ongoing excessive alcohol consumption. Advised patient to cut down alcohol consumption and stop. -Start Medrol taper for relief -Continue colchicine 0.3 mg Twice daily for prophylaxis -Continue allopurinol 100 mg daily, plan to repeat acid level before next visit and increase allopurinol dose -Patient is on chlorthalidone which is known to increase uric acid levels. I suggest stopping chlorthalidone and switching to another antihypertensive -Labs showed negative acid. Depression with anxiety 04/25/2024 Assessment & Plan (11/17/2024 1:56 PM EST): Denies suicidial or homacidial ideation Cardiac risk counseling 02/24/2024 Overview (11/09/2024): Calculated 11/09/24: High Risk The 10-year ASCVD [...] Cardiology to schedule a Stress Test 11/09/24 Assessment & Plan (11/09/2024 12:53 PM EST): Calculated 11/09/24: High Risk The 10-year ASCVD [...] Cardiology to schedule a Stress Test 11/09/24 Assessment & Plan (08/24/2024 9:41 AM EDT): Calculated 08/24/24: High Risk The 10-year ASCVD risk score (Becka JOY, et al., 2019) is: 6.2% Values used to calculate the score: Age: 48 years Sex: Female Is Non- : No Diabetic: No Tobacco smoker: Yes Systolic Blood Pressure: 130 mmHg Is BP treated: Yes HDL Cholesterol: [...] for statin therapy again in the future. Iron deficiency anemia 01/11/2024 Overview (06/29/2024): Lab Results Component Value Date FERRITIN 118 06/16/2024 FERRITIN 775 (H) 01/04/2024 HGB 10.7 (L) 06/16/2024 HGB 12.8 04/09/2024 HGB 12.5 07/01/2022 HGB 12.2 01/23/2022 HEMATOCRIT 37.0 07/01/2022 HEMATOCRIT 36.0 01/23/2022 Assessment & Plan (06/29/2024 3:39 PM EDT): Lab Results Component Value Date FERRITIN 118 06/16/2024 FERRITIN 775 (H) 01/04/2024 HGB 10.7 (L) 06/16/2024 HGB 12.8 04/09/2024 HGB 12.5 07/01/2022 HGB 12.2 01/23/2022 HEMATOCRIT 37.0 07/01/2022 HEMATOCRIT 36.0 01/23/2022 Mild reactive airways disease 01/11/2024 Overview (11/16/2024): -Pulmonology note 09/08/24 PFT which revealed a [...] furoate (Arnuity Ellipta) 200 MCG/ACT inhaler 11/09/24 -follow up pulm 11/2024: chest CT which revealed mild traction bronchiectasis of RML, mild airway thickening suggestive of chronic bronchitis and scattered stable pulmonary nodules, <5mm. Will repeat chest CT in one year to assess stability of nodules. Will trial Advair if unable to tolerate, will continue with nebulized albuterol PRN. Patient recently underwent stress test ordered by cardiology, awaiting results. All questions were answered and patient is in agreement of plan. Will follow up in6-8 weeks or sooner if needed. Assessment & Plan (11/09/2024 12:44 PM EST): -Pulmonology note 09/08/24 PFT which revealed a [...] furoate (Arnuity Ellipta) 200 MCG/ACT inhaler 11/09/24 Osteoarthritis of right knee 01/11/2024 Complex care coordination 01/11/2024 Overview (01/11/2024): -Has ASSET COORDINATOR services with Chavo Martin is applying [facility] 01/11/2024 -In our complex care management program -referred to PSYCHIATRIC on 01/04/2024 -Messaged sent to care aide for assistance in care visits Assessment & Plan (08/24/2024 9:19 AM EDT): -Has ASSET COORDINATOR services with Chavo Martin is applying [facility] 01/11/2024 -In our complex care management program -referred to PSYCHIATRIC on 01/04/2024 -Messaged sent to C3 care aide for assistance in care visits Assessment & Plan (06/29/2024 4:06 PM EDT): -Has ASSET COORDINATOR services with Chavo -Leonora is applying [facility] 01/11/2024 -In our complex care management program -referred to PSYCHIATRIC on 01/04/2024 -Messaged sent to C3 care aide for assistance in care visits Assessment & Plan (01/11/2024 9:30 AM EDT): -Has ASSET COORDINATOR services with Chavo Martin is applying [facility] 01/11/2024 -In our complex care management program -referred to PSYCHIATRIC on 01/04/2024 -Messaged sent to C3 care aide for assistance in care visits Generalized anxiety disorder with panic attacks 11/24/2023 Assessment & Plan (04/04/2024 4:53 PM EDT): During IBH Consult Azra presenting with excessive worry/anxiety, difficulty controlling worry, easily fatigued, difficulty concentrating/Mind going blank , irritability, and sleep disturbance difficulty falling asleep and palpitations, sweating, trembling/shaking, sensation of shortness of breath/smothering, feeling of choking, Chest pain/discomfort, nausea/abdominal distress, numbness/tingling, Persistent concern/worry of panic attacks or their consequences; for a period of 18+ mo, for all symptoms in the context of illness or family illness and housing. Severity of anxiety are impacting significantly social and occupational functioning. Azra reports not being able to manage anxiety, especially when being under severe stress due to experiencing chronic pain. She's engaged with the Pain Management team and will reconnect with [facility]. Information given to patient. PLAN: (check all that apply) Behavioral Health Integration Plan Self- referred to HC/N per patient's preference. Assessment & Plan (11/24/2023 11:53 AM EST): STEFANY-7 Total Score: 21 (10/22/2023 10:44 AM) New/Additional Services needed Off-site services for , Behavioral Health Integration Plan External OP therapy referral , Patient Self Plan Patient to utilize skills provided in intervention , Patient to reach out to [facility] team as needed, and Patient to engage in OP therapy Provided patient with support in scheduling an Intake appt with [facility]. Positive colorectal cancer screening using Colog uard test 09/07/2023 Overview (07/12/2024): Cologuard positive 08/27/23. Called pt and referral for GI placed 09/07/2023. Pt was scheduled and missed it then rescheduled February 2024 but caught covid. Now scheduled for July 2024. Continues to call to see if can be seen sooner due to cancellation. Pt agrees with the plan. -tubular adenoma x 3 on colonoscopy 07/11/24 Assessment & Plan (06/29/2024 4:03 PM EDT): Cologuard positive 08/27/23. Called pt and referral for GI placed 09/07/2023. Pt was scheduled and missed it then rescheduled February 2024 but caught covid. Now scheduled for July 2024. Continues to call to see if can be seen sooner due to cancellation. Pt agrees with the plan. -pt notes she has appt with GI for colonoscopy in July,. Assessment & Plan (03/31/2024 8:43 AM EDT): Cologuard positive 08/27/23. Called pt and referral for GI placed 09/07/2023. Pt was scheduled and missed it then rescheduled February 2024 but caught covid. Now scheduled for July 2024. Continues to call to see if can be seen sooner due to cancellation. Pt agrees with the plan. Anemia 07/29/2023 Overview (11/09/2024): Lab Results Component Value Date FERRITIN 180 11/08/2024 FERRITIN 118 06/16/2024 HGB 11.9 (L) 11/08/2024 HGB 10.8 (L) 10/31/2024 HGB 12.5 07/01/2022 HGB 12.2 01/23/2022 HEMATOCRIT 37.0 07/01/2022 HEMATOCRIT 36.0 01/23/2022 Pt does not want to take iron orally, she wants to go back to hematology for transfusion - Iron infusions ordered by Mid Level Developer DR. Grande - She recieved two sessions of iron infusion, but has not been to her third session - Hematology appointment scheduled on 12/23/23 - Not seeing Dr. Grande anymore and reports she cannot take iron supplements due to constipation. Encouraged to schedule appt to explore other options. 08/24/24 -She reestablished with hematology 08/24/2024 Assessment & Plan (08/24/2024 9:44 AM EDT): Lab Results Component Value Date FERRITIN 118 06/16/2024 FERRITIN 775 (H) 01/04/2024 HGB 10.4 (L) 07/24/2024 HGB 11.9 (L) 07/06/2024 HGB 12.5 07/01/2022 HGB 12.2 01/23/2022 HEMATOCRIT 37.0 07/01/2022 HEMATOCRIT 36.0 01/23/2022 Pt does not want to take iron orally, she wants to go back to hematology for transfusion - Iron infusions ordered by [employer] DR. Grande - She recieved two sessions of iron infusion, but has not been to her third session - Hematology appointment scheduled on 12/23/23 - Not seeing Dr. Grande anymore and reports she cannot take iron supplements due to constipation. Encouraged to schedule appt to explore other options. 08/24/24 Assessment & Plan (06/29/2024 3:39 PM EDT): Lab Results Component Value Date FERRITIN 118 06/16/2024 FERRITIN 775 (H) 01/04/2024 HGB 10.7 (L) 06/16/2024 HGB 12.8 04/09/2024 HGB 12.5 07/01/2022 HGB 12.2 01/23/2022 HEMATOCRIT 37.0 07/01/2022 HEMATOCRIT 36.0 01/23/2022 Pt does not want to take iron orally, she wants to go back to hematology for transfusion - Iron infusions ordered by [employer] DR. Grande - She recieved two sessions of iron infusion, but has not been to her third session - Hematology appointment scheduled on 12/23/23 Assessment & Plan (12/14/2023 11:36 AM EST): Lab Results Component Value Date HGB 10.7 (L) 09/22/2023 HGB 9.9 (L) 07/27/2023 HGB 12.5 07/01/2022 HGB 12.2 01/23/2022 HEMATOCRIT 37.0 07/01/2022 HEMATOCRIT 36.0 01/23/2022 Pt does not want to take iron orally, she wants to go back to hematology for transfusion - Iron infusions ordered by [employer] DR. Grande - She recieved two sessions of iron infusion, but has not been to her third session - Hematology appointment scheduled on 12/23/23 Assessment & Plan (07/29/2023 4:35 PM EDT): Pt does not want to take iron orally, she wants to go back to hematology for transfusion Peripheral neuropathy 07/22/2023 Overview (06/28/2024): Past procedures 01/14/24: Peripheral Nerve Stimulation Temporary Lead Placement, Ultrasound- Guided, Saphenous Nerve, Right: No relief. 07/31/23: Right adductor canal saphenous nerve block, ultrasound-guided: Diagnostic relief for the duration of the anesthetic. 11/05/22: Lumbar Medial Branch Block, Bilateral L3, L4 medial branches and L5 Dorsal Ramus (2 levels, 3 nerves)- 100% relief. Seen by Raj Spann MD in pain management 03/11/24. She reports no improvement from saphenous nerve stimulation trial. She saw an orthopedic surgeon, who referred her back to pain managment. She was unable to pass the device intensity beyond 46. The pain was getting worse, so she turned off the device one week ago. She is not too keen on proceeding with a permanent nerve stimulator implant as a next step as she does not want to pay the co-pay for psychological clearance. Hypomagnesemia 07/22/2023 Overview (11/09/2024): Received magnesium IV in ER -Dose increased to TID Magnesium Date Value Ref Range Status 06/16/2024 1.4 (LL) 1.6 - 2.6 mg/dL Final Comment: Critical value for test(s): MAGS Results called to pedro shea by: Janett Ortega Person calling: [email or web address] Date:06/16/24 Time: 1218 Saw CDTM on 08/16/24 who recommended assessing patient's magnesium levels because patient received replacement therapy inpatient for hypomagnesemia, last assessed 07/24/2024 (1.2 mg/dL), and takes magnesium oxide 400 mg three times daily and assessing further need for omeprazole because patient is at increased risk for hypomagnesemia with this medication due to long duration of therapy (> 1 year) and concurrent use with another drug that causes hypomagnesemia (furosemide). -ordered repeat magnesium level 08/24/24 - Increased Magnesium intake to 4 times a day 11/09/24 - Prescribed magnesium oxide (Mag-Ox) 400 MG tablet 11/09/24 Assessment & Plan (11/09/2024 12:49 PM EST): - Increased Magnesium intake to 4 times a day 11/09/24 - Prescribed magnesium oxide (Mag-Ox) 400 MG tablet 11/09/24 Assessment & Plan (08/24/2024 9:42 AM EDT): Received magnesium IV in ER -Dose increased to TID Magnesium Date Value Ref Range Status 06/16/2024 1.4 (LL) 1.6 - 2.6 mg/dL Final Comment: Critical value for test(s): MAGS Results called to lynneluul back by: Janett Ortega Person calling: [employer] Date:06/16/24 Time: 1218 Saw CDTM on 08/16/24 who recommended assessing patient's magnesium levels because patient received replacement therapy inpatient for hypomagnesemia, last assessed 07/24/2024 (1.2 mg/dL), and takes magnesium oxide 400 mg three times daily and assessing further need for omeprazole because patient is at increased risk for hypomagnesemia with this medication due to long duration of therapy (> 1 year) and concurrent use with another drug that causes hypomagnesemia (furosemide). -ordered repeat magnesium level 08/24/24 Assessment & Plan (06/29/2024 4:10 PM EDT): Received magnesium IV in ER -Dose increased to TID Magnesium Date Value Ref Range Status 06/16/2024 1.4 (LL) 1.6 - 2.6 mg/dL Final Comment: Critical value for test(s): MAGS Results called to pedro back by: Janett Ortega Person calling: [employer] Date:06/16/24 Time: 1218 Assessment & Plan (07/29/2023 4:34 PM EDT): Received magnesium IV in ER -Dose increased to TID - Recheck in 2 weeks Preventative health care 07/20/2023 Overview (07/11/2024): -next physical exam due after 06/29/25 -eye care facilitated by [facility] -dental home is [facility] -health care proxy filed 06/29/24 Assessment & Plan (06/29/2024 4:03 PM EDT): -next physical exam due after 06/29/25 -eye care facilitated by [facility] -dental home is [facility] -health care proxy given and filed 06/29/24 Stage 3 chronic kidney disease 07/20/2023 Assessment & Plan (12/14/2023 12:11 PM EST): -labs ordered for further evaluation: Albumin, random urine w/ creatinine, Creatinine, Basic metabolic Panel. Pain in both feet 07/14/2023 Overview (07/22/2023): Unclear etiology Osteoarthritis vs peripheral neuropathy, exam, pulses normal, full rom, no swelling or palpable abnormality Plan: Plain x-rays, NCS. Pending on work up will decide on therapy not a good candidate for NSAIDS due to GI upset or tylenol due to elevated LFTs and active alcohol abuse. Assessment & Plan (07/22/2023 10:14 AM EDT): Unclear etiology Osteoarthritis vs peripheral neuropathy, exam, pulses normal, full rom, no swelling or palpable abnormality Plan: Plain x-rays, NCS. Pending on work up will decide on therapy not a good candidate for NSAIDS due to GI upset or tylenol due to elevated LFTs and active alcohol abuse. Assessment & Plan (07/14/2023 10:54 AM EDT): Unclear etiology Osteoarthritis vs peripheral neuropathy, exam, pulses normal, full rom, no swelling or palpable abnormality Plan: Plain x-rays, NCS. Pending on work up will decide on therapy not a good candidate for NSAIDS due to GI upset or tylenol due to elevated LFTs and active alcohol abuse. History of alcohol withdrawal syndrome 3 Assessment & Plan (06/05/2023 10:40 AM EDT): No hallucinations or delirium CIWA score of 28 EMS called and arrived on scene within 10 minutes, transfer completed [facility] ER called with expect Chronic GERD 05/26/2023 Cocaine use disorder in remission 05/26/2023 Post traumatic stress disorder (PTSD) 05/26/2023 Palpitations with regular cardiac rhythm 023 Assessment & Plan (05/26/2023 12:37 PM EDT): Broad differential for this patients symptoms, with anxiety and stress in life right now, but no sweats, tremors to suggest DTs. Elevated blood pressure and HR improved after sitting for 15 minutes and recheck. Possibly related to knee steroid injections yesterday. Will have pt trial muscle relaxer for muscle spasms at home, after having stat labs drawn. Followup with me and then possibly PCP after labs result. CBC with WBC to 13 White Blood Count 13.1??High?? X10*3/uL Lymphocytes Percent Auto 16.1??Low?? % Red Blood Count 3.95??Low?? X10*6/uL Monocytes Percent Auto 5.3 % Hemoglobin 12.2 g/dl Eosinophils Percent Auto 0.0 % Hematocrit 37.3 % Basophils Percent Auto 0.4 % Mean Corpuscular Volume 94.4 fL NRBC Pct Auto 0.0 /100WBC Mean Corpuscular Hemoglobin 30.9 pg Neutrophils Absolute Auto 10.1??High?? x10*3/uL Mean Corpuscular HGB Conc 32.7 g/dl Imm Gran Abs Auto 0.19??High?? X10*3/uL Red Cell Distribution Width 13.5 % Lymphocytes ??Absolute Auto 2.1 X10*3/uL Platelet Count 410??High?? X10*3/uL Monocytes Absolute Auto 0.7 X10*3/uL Mean Platelet Volume 11.1 fL Eosinophils Absolute Auto 0.0 X10*3/uL Neutrophils Percent Auto 76.8??High?? % Basophils Absolute Auto 0.1 X10*3/uL Imm Gran Pct Auto 1.4??High?? % NRBC Abs Auto 0.000 X10*3/uL Chronic pain of both knees 11/16/2022 Overview (08/24/2024): Seen orthopedics on 06/22/2023 for Osteoporosis of the knee Right greater then left. Scheduled nerve blocks Saw Dr. Yajaira Noguera on 08/22/24, recommended weaning off of prednisone and follow-up with rheumatology. Assessment & Plan (08/24/2024 9:45 AM EDT): Seen orthopedics on 06/22/2023 for Osteoporosis of the knee Right greater then left. Scheduled nerve blocks Saw Ortho, Dr. Gates on 08/22/24, recommended weaning off of prednisone and follow-up with rheumatology. Assessment & Plan (10/22/2023 9:49 AM EST): Seen orthopedics on 06/22/2023 for Osteoporosis of the knee Right greater then left. Scheduled nerve blocks. Assessment & Plan (07/22/2023 10:21 AM EDT): Seen orthopedics on 06/22/2023 for Osteoporosis of the knee Right greater then left. Scheduled nerve blocks. Fibromyalgia 11/16/2022 Overview (10/22/2023): Pt has chronic pain syndrome. Multiple work up are normal. There is moderate evidence for efficacy for aerobic exercise, cognitive behavioral therapy, patient education, and group therapy. There is also evidence for acupuncture, hypnotherapy, biofeedback and balneotherapy. There is some weaker evidence for chiropractic therapy, massage, electrotherapy and ultrasound. There is no evidence that trigger point injections or opioids are beneficial in fibromyalgia. Pharmacologic options include muscle relaxants, gabapentin, pregabalin, and duloxetine, but are the lest effective of all strategies and dangerous given active uncontrolled substance abuse. She is discontinued Lyrica and reports it is not healing. She did not have response to gabapentin and reports side effects were too much. She is starting Cymbalta with psychiatry. Pt was counseled on the importance of exercise, adequate sleep, control of depression and or anxiety and stress management. Assessment & Plan (10/22/2023 9:50 AM EST): Pt has chronic pain syndrome. Multiple work up are normal. There is moderate evidence for efficacy for aerobic exercise, cognitive behavioral therapy, patient education, and group therapy. There is also evidence for acupuncture, hypnotherapy, biofeedback and balneotherapy. There is some weaker evidence for chiropractic therapy, massage, electrotherapy and ultrasound. There is no evidence that trigger point injections or opioids are beneficial in fibromyalgia. Pharmacologic options include muscle relaxants, gabapentin, pregabalin, and duloxetine, but are the lest effective of all strategies and dangerous given active uncontrolled substance abuse. She is discontinued Lyrica and reports it is not healing. She did not have response to gabapentin and reports side effects were too much. She is starting Cymbalta with psychiatry. Pt was counseled on the importance of exercise, adequate sleep, control of depression and or anxiety and stress management. Assessment & Plan (11/16/2022 10:56 AM EST): Pt has chronic pain syndrome. Multiple work up are normal. There is moderate evidence for efficacy for aerobic exercise, cognitive behavioral therapy, patient education, and group therapy. There is also evidence for acupuncture, hypnotherapy, biofeedback and balneotherapy. There is some weaker evidence for chiropractic therapy, massage, electrotherapy and ultrasound. There is no evidence that trigger point injections or opioids are beneficial in fibromyalgia. Pharmacologic options include muscle relaxants, gabapentin, pregabalin, and duloxetine, but are the lest effective of all strategies and dangerous given active uncontrolled substance abuse. She is discontinued Lyrica and reports it is not healing. She did not have response to gabapentin and reports side effects were too much. She is starting Cymbalta with psychiatry. Pt was counseled on the importance of exercise, adequate sleep, control of depression and or anxiety and stress management. Transaminitis 11/16/2022 Overview (08/24/2024): -On 09/02/22 Pt had ultrasound sound for abdominal pain at [facility] revealing diffusely echogenic parenchyma with focal sparing around the gallbladder. No suspicious lesions. Impression showed liver likely representing hepatic steatosis and non- obstructing right kidney stone. Lab Results Component Value Date AST 9 07/24/2024 ALT 12 07/24/2024 ALT 22 02/12/2023 ALT 24 07/01/2022 ALP 87 07/24/2024 DIRECTBILIRU 0.2 07/24/2024 -pt reports bilateral flank pain and left sided abd pain. Ordered repeat abdominal US as well as US of bilateral kidney's 06/29/24 -US completed 07/08/24, US/US abdomen complete IMPRESSION: Increased hepatic parenchymal heterogeneity and echogenicity could be associated with hepatocellular disease/hepatic steatosis and substantially limits visualization. Hepatic contour is smooth. Correlation with liver function tests and clinical exam recommended to determine further management. Assessment & Plan (08/24/2024 9:43 AM EDT): -On 09/02/22 Pt had ultrasound sound for abdominal pain at [facility] revealing diffusely echogenic parenchyma with focal sparing around the gallbladder. No suspicious lesions. Impression showed liver likely representing hepatic steatosis and non- obstructing right kidney stone. Lab Results Component Value Date AST 9 07/24/2024 ALT 12 07/24/2024 ALT 22 02/12/2023 ALT 24 07/01/2022 ALP 87 07/24/2024 DIRECTBILIRU 0.2 07/24/2024 -pt reports bilateral flank pain and left sided abd pain. Ordered repeat abdominal US as well as US of bilateral kidney's 06/29/24 -US completed 07/08/24, US/US abdomen complete IMPRESSION: Increased hepatic parenchymal heterogeneity and echogenicity could be associated with hepatocellular disease/hepatic steatosis and substantially limits visualization. Hepatic contour is smooth. Correlation with liver function tests and clinical exam recommended to determine further management. Assessment & Plan (07/13/2024 2:16 PM EDT): -On 09/02/22 Pt had ultrasound sound for abdominal pain at [facility] revealing diffusely echogenic parenchyma with focal sparing around the gallbladder. No suspicious lesions. Impression showed liver likely representing hepatic steatosis and non- obstructing right kidney stone. Lab Results Component Value Date AST 24 07/06/2024 ALT 23 07/06/2024 ALT 22 02/12/2023 ALT 24 07/01/2022 ALP 89 07/06/2024 DIRECTBILIRU 0.1 06/16/2024 -pt reports bilateral flank pain and left sided abd pain. Ordered repeat abdominal US as well as US of bilateral kidney's 06/29/24 -US completed 07/08/24, no results yet. Assessment & Plan (06/29/2024 3:55 PM EDT): -On 09/02/22 Pt had ultrasound sound for abdominal pain at [facility] revealing diffusely echogenic parenchyma with focal sparing around the gallbladder. No suspicious lesions. Impression showed liver likely representing hepatic steatosis and non- obstructing right kidney stone. Lab Results Component Value Date AST 14 02/24/2024 ALT 18 02/24/2024 ALT 22 02/12/2023 ALT 24 07/01/2022 ALP 99 02/24/2024 DIRECTBILIRU <0.2 02/24/2024 -pt reports bilateral flank pain and left sided abd pain. Ordered repeat abdominal US as well as US of bilateral kidney's 06/29/24 Assessment & Plan (10/22/2023 9:53 AM EST): -On 09/02/22 Pt had ultrasound sound for abdominal pain at [facility] revealing diffusely echogenic parenchyma with focal sparing around the gallbladder. No suspicious lesions. Impression showed liver likely representing hepatic steatosis and non- obstructing right kidney stone Lab Results Component Value Date AST 16 09/22/2023 ALT 25 09/22/2023 ALT 22 02/12/2023 ALT 24 07/01/2022 ALP 100 09/22/2023 DIRECTBILIRU <0.2 09/22/2023 Assessment & Plan (11/16/2022 10:53 AM EST): Ultrasound ordered 06/23 for left flank pain. On 09/02/22 Pt had ultrasound sound for abdominal pain at [facility]. Ultrasound showed diffusely echogenic parenchyma with focal sparing around the gallbladder. No suspicious lesions. Impression showed liver likely representing hepatic steatosis and non- obstructing right kidney stone. Benign essential hypertension 12/13/2021 Overview (11/09/2024): -Blood pressure is at goal -Continue lifestyle modifications -Continue current medications - Prescribed spironolactone (Aldactone) 25 MG tablet 11/09/24 Assessment & Plan (11/17/2024 1:55 PM EST): -Blood pressure is at goal -Continue lifestyle modifications -Continue current medications - Prescribed spironolactone (Aldactone) 25 MG tablet 11/09/24 Assessment & Plan (11/09/2024 12:45 PM EST): -Blood pressure is at goal -Continue lifestyle modifications -Continue current medications - Prescribed spironolactone (Aldactone) 25 MG tablet 11/09/24 Assessment & Plan (08/24/2024 9:45 AM EDT): -Blood pressure is at goal -Continue lifestyle modifications -Continue current medications Assessment & Plan (07/13/2024 2:15 PM EDT): -Blood pressure is at goal -Continue lifestyle modifications -Continue current medications Assessment & Plan (06/29/2024 3:38 PM EDT): -Blood pressure is at goal -Continue lifestyle modifications -Continue current medications Assessment & Plan (06/20/2024 5:37 PM EDT): Uncontrolled. Given concomitant sxs, will send to ED to [facility], EMS is called and she left accompanied by her . Continue lisinopril 40 + Carvedilol. Can restart chlorthalidone 25 mg, unless a different medication is started at the ED. She's to fu BP with RN for BP check in 2w Urine tox is NEGATIVE. Assessment & Plan (03/31/2024 8:42 AM EDT): -Blood pressure is at goal -Continue lifestyle modifications -Continue current medications Assessment & Plan (01/11/2024 10:43 AM EDT): -Blood pressure is at goal -Continue lifestyle modifications -Continue current medications Assessment & Plan (12/14/2023 12:03 PM EST): -Blood pressure is at goal -Continue lifestyle modifications -Continue current medications Alcohol use disorder, moderate, dependence 12/12 Overview (08/24/2024): Longstanding, severe olesya drinking with hx admissions and withdrawal. Care complicated by difficulty accepting/comprehending risk. We have many times discussed risks including liver damage, liver failure and the risk of dying if she continues to drink. At times she has been referred to [facility] for Support and Recovery but has not followed though. -Continue to check CBC, LFTs and Coags to evaluated the synthetic function of her liver. -Continue thiamine and folic -ER 12/17/23 for alcohol withdrawal symptoms, patient received phenobarb improved her symptoms, patient declined rehab, discharged home -ER 01/02/24 for EtOH withdrawal symptoms, found to be COVID positive, discharged with prn lorazepam -Agreed to call her AUD clinic for a follow up visit 01/11/2024 but did not follow though and subsequently declined -Admitted for alcohol detox at [facility] 04/09/24 -reports she is currently not drinking 08/24/24. Encouraged to continue abstinence. Assessment & Plan (08/24/2024 9:39 AM EDT): Longstanding, severe olesya drinking with hx admissions and withdrawal. Care complicated by difficulty accepting/comprehending risk. We have many times discussed risks including liver damage, liver failure and the risk of dying if she continues to drink. At times she has been referred to [facility] for Support and Recovery but has not followed though. -Continue to check CBC, LFTs and Coags to evaluated the synthetic function of her liver. -Continue thiamine and folic -ER 12/17/23 for alcohol withdrawal symptoms, patient received phenobarb improved her symptoms, patient declined rehab, discharged home -ER 01/02/24 for EtOH withdrawal symptoms, found to be COVID positive, discharged with prn lorazepam -Agreed to call her AUD clinic for a follow up visit 01/11/2024 but did not follow though and subsequently declined -Admitted for alcohol detox at [facility] 04/09/24 -reports she is currently not drinking 08/24/24. Encouraged to continue abstinence. Assessment & Plan (03/31/2024 8:43 AM EDT): Unfortunately still drinking. She tells me she has been on A five day binge and today she tells me she is not interested in going to Detox or coming back to see our AUD provider. She states she did not tolerate the treatment. I discussed with her my concerns about her liver and liver damage, failure and the risk of dying if she continues to drink. She acknowledge it but at the moment she is not interested I asked that she contact us if she changes her mind. Continue to check CBC, LFTs and Coags to evaluated the synthetic function of her liver. -Declines detox -Agrees to AUD clinic 07/22/2023 -She is not interested in AUD clinic for today -Continue thiamine and folic -seen in ER 12/17/23 alcohol withdrawal symptoms, patient received phenobarb improved her symptoms, patient declined wildlife refuge specialist help to place her in rehab, is at the bedside willing to take patient home, no SI, no HI, no visual hallucination. Patient wanted to go home, and feels safe to be discharged. -Agreed to call her AUD clinic for a follow up visit 01/11/2024 -Declines follow up with AUD clinic 03/21/24 Assessment & Plan (01/11/2024 11:10 AM EDT): Unfortunately still drinking. She tells me she has been on A five day binge and today she tells me she is not interested in going to Detox or coming back to see our AUD provider. She states she did not tolerate the treatment. I discussed with her my concerns about her liver and liver damage, failure and the risk of dying if she continues to drink. She acknowledge it but at the moment she is not interested I asked that she contact us if she changes her mind. Continue to check CBC, LFTs and Coags to evaluated the synthetic function of her liver. -Declines detox -Agrees to AUD clinic 07/22/2023 -She is not interested in AUD clinic for today -Continue thiamine and folic -seen in ER 12/17/23 alcohol withdrawal symptoms, patient received phenobarb improved her symptoms, patient declined wildlife refuge specialist help to place her in rehab, is at the bedside willing to take patient home, no SI, no HI, no visual hallucination. Patient wanted to go home, and feels safe to be discharged. -Agrees to call her AUD clinic for a follow up visit 01/11/2024 Assessment & Plan (12/14/2023 11:23 AM EST): Unfortunately still drinking. She tells me she has been on A five day binge and today she tells me she is not interested in going to Detox or coming back to see our AUD provider. She states she did not tolerate the treatment. I discussed with her my concerns about her liver and liver damage, failure and the risk of dying if she continues to drink. She acknowledge it but at the moment she is not interested I asked that she contact us if she changes her mind. Continue to check CBC, LFTs and Coags to evaluated the synthetic function of her liver. -Declines detox -Agrees to AUD clinic 07/22/2023 -She is not interested in AUD clinic for today -Continue thiamine and folic Assessment & Plan (10/22/2023 9:47 AM EST): Unfortunately still drinking. She tells me she has been on A five day binge and today she tells me she is not interested in going to Detox or coming back to see our AUD provider. She states she did not tolerate the treatment. I discussed with her my concerns about her liver and liver damage, failure and the risk of dying if she continues to drink. She acknowledge it but at the moment she is not interested I asked that she contact us if she changes her mind. I will be checking a CBC, LFTs and Coags to evaluated the synthetic function of her liver. -Denies detox. -Agrees to AUD clinic 07/22/2023. -She is not interested in AUD clinic for today. -Continue thiamine and folic Assessment & Plan (07/29/2023 4:32 PM EDT): Unfortunately still drinking. She tells me she has been on A five day binge and today she tells me she is not interested in going to Detox or coming back to see our AUD provider. She states she did not tolerate the treatment. I discussed with her my concerns about her liver and liver damage, failure and the risk of dying if she continues to drink. She acknowledge it but at the moment she is not interested I asked that she contact us if she changes her mind. I will be checking a CBC, LFTs and Coags to evaluated the synthetic function of her liver. -Denies detox. -Agrees to AUD clinic 07/22/2023. -She is not interested in AUD clinic for today. -Continue thiamine and folic Assessment & Plan (07/22/2023 10:25 AM EDT): Unfortunately still drinking. She tells me she has been on A five day binge and today she tells me she is not interested in going to Detox or coming back to see our AUD provider. She states she did not tolerate the treatment. I discussed with her my concerns about her liver and liver damage, failure and the risk of dying if she continues to drink. She acknowledge it but at the moment she is not interested I asked that she contact us if she changes her mind. I will be checking a CBC, LFTs and Coags to evaluated the synthetic function of her liver. -Denies detox. -Agrees to AUD clinic 07/22/2023. Assessment & Plan (07/14/2023 10:49 AM EDT): Unfortunately still drinking. She tells me she has been on A five day binge and today she tells me she is not interested in going to Detox or coming back to see our AUD provider. She states she did not tolerate the treatment. I discussed with her my concerns about her liver and liver damage, failure and the risk of dying if she continues to drink. She acknowledge it but at the moment she is not interested I asked that she contact us if she changes her mind. I will be checking a CBC, LFTs and Coags to evaluated the synthetic function of her liver. She is to follow up with PCP after labs and testing Allergic rhinitis 12/12/2021 History of right breast cancer 12/12/2021 Overview (11/09/2024): Adenocarcinoma of the right breast with DCIS grade 3, cribriform type, invasive tumor 2.2 cm ER positive, NY positive, HER-2/RON negative, two sentinel nodes negative. -[facility], completed [...] at that time,. Encouraged to get mammo and start tamoxifen. She has not done either. Mammo [...] flare up. Will call to reschedule her appointment 11/09/24 Assessment & Plan (11/09/2024 12:59 PM EST): Adenocarcinoma of the right breast with DCIS grade 3, cribriform type, invasive tumor 2.2 cm ER positive, NY positive, HER-2/RON negative, two sentinel nodes negative. -S/p RIGHT mastectomy with sentinel node bx by Dr. Prescott [facility] -Adriamycin/Cytoxan based chemotherapy started Oct, completed 4 [...] at that time,. Encouraged to get mammo and start tamoxifen. She has not done either. Mammo [...] flare up. Will call to reschedule her appointment 11/09/24 Assessment & Plan (08/24/2024 9:18 AM EDT): Adenocarcinoma of the right breast with DCIS grade 3, cribriform type, invasive tumor 2.2 cm ER positive, NY positive, HER-2/RON negative, two sentinel nodes negative. -S/p RIGHT mastectomy with sentinel node bx by Dr. Prescott [facility] -Adriamycin/Cytoxan based chemotherapy started Oct, completed 4 [...] at that time,. Encouraged to get mammo and start tamoxifen. She has not done either. Mammo [...] the appointment and is discharged from clinic. Ordered mammogram 06/29/24 Still awaiting for appt 07/13/24 -Has appt on 09/01/24 for mammo. Assessment & Plan (07/13/2024 2:17 PM EDT): Adenocarcinoma of the right breast with DCIS grade 3, cribriform type, invasive tumor 2.2 cm ER positive, NY positive, HER-2/RON negative, two sentinel nodes negative. -S/p RIGHT mastectomy with sentinel node bx by Dr. Prescott [facility] -Adriamycin/Cytoxan based chemotherapy started Oct, completed 4 [...] at that time,. Encouraged to get mammo and start tamoxifen. She has not done either. Mammo [...] the appointment and is discharged from clinic. Ordered mammogram 06/29/24 Still awaiting for appt 07/13/24 Assessment & Plan (06/29/2024 4:10 PM EDT): Adenocarcinoma of the right breast with DCIS grade 3, cribriform type, invasive tumor 2.2 cm ER positive, NY positive, HER-2/RON negative, two sentinel nodes negative. -S/p RIGHT mastectomy with sentinel node bx by Dr. Prescott [facility] -Adriamycin/Cytoxan based chemotherapy started Oct, completed 4 [...] at that time,. Encouraged to get mammo and start tamoxifen. She has not done either. Mammo [...] the appointment and is discharged from clinic. Ordered mammogram 06/29/24 Assessment & Plan (03/31/2024 8:44 AM EDT): Adenocarcinoma of the right breast with DCIS grade 3, cribriform type, invasive tumor 2.2 cm ER positive, NY positive, HER-2/RON negative, two sentinel nodes negative. -S/p RIGHT mastectomy with sentinel node bx by Dr. Prescott [facility] -Adriamycin/Cytoxan based chemotherapy started Oct, completed 4 [...] at that time,. Encouraged to get mammo and start tamoxifen. She has not done either. Mammo [...] the appointment and is discharged from clinic. Assessment & Plan (12/14/2023 12:04 PM EST): Adenocarcinoma of the right breast with DCIS grade 3, cribriform type, invasive tumor 2.2 cm ER positive, NY positive, HER-2/RON negative, two sentinel nodes negative. -S/p RIGHT mastectomy with sentinel node bx by Dr. Prescott [facility] -Adriamycin/Cytoxan based chemotherapy started Oct, completed 4 [...] at that time,. Encouraged to get mammo and start tamoxifen. She has not done either. Mammo [...] 1 negative. -Normal bone density on 09/23/23. Assessment & Plan (10/22/2023 9:51 AM EST): Adenocarcinoma of the right breast with DCIS grade 3, cribriform type, invasive tumor 2.2 cm ER positive, NY positive, HER-2/RON negative, two sentinel nodes negative. -S/[facility] started Oct, completed [...] at that time,. Encouraged to get mammo and start tamoxifen. She has not done either. Mammo [...] BIRADS 2 benign, next due 10/2022. -Mammo ordered 07/14/2023. Assessment & Plan (07/22/2023 10:17 AM EDT): -Pt encouraged to start tamoxifen. She is not a candidate for aromatase inhibitor due to being premenopausal -last apt with Dr. Grande 04/23/16. She had iron infusion at that time,. Encouraged to get mammo and start tamoxifen. She has not done either. Mammo [...] BIRADS 2 benign, next due 10/2022. -Mammo ordered 07/14/2023. Assessment & Plan (07/14/2023 10:46 AM EDT): Pt has not had a mammogram for over a year and has not followed up with her Oncologist Dr multani. Today I have ordered a mammogram and I asked my MA Jeana to schedule a follow up with Dr Grande Assessment & Plan (11/16/2022 10:54 AM EST): Adenocarcinoma of the right breast with DCIS grade 3, cribriform type, invasive tumor 2.2 cm ER positive, NY positive, HER-2/RON negative, two sentinel nodes negative. -S/p RIGHT mastectomy with sentinel node bx by Dr. Prescott [facility] -Adriamycin/Cytoxan based chemotherapy started Oct, completed 4 [...] at that time,. Encouraged to get mammo and start tamoxifen. She has not done either. Mammo [...] was BIRADS 2 benign, next due 10/2022. Vitamin D deficiency 12/12/2021 Overview (06/28/2024): Lab Results Component Value Date [id number] 58.3 06/16/2024 [id number] 106.4 01/04/2024 [id number] 76.8 09/22/2023 Assessment & Plan (06/29/2024 3:39 PM EDT): Lab Results Component Value Date [id number] 58.3 06/16/2024 [id number] 106.4 01/04/2024 [id number] 76.8 09/22/2023 Assessment & Plan (12/14/2023 12:09 PM EST): Lab Results Component Value Date [id number] 76.8 09/22/2023 -Labs ordered for further evaluation: Vitmain D, 25-hydroxy, Total, Immunoassay. 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 Per Dr. Krish Loomis's note from [facility], pt was due for repeat colposcopy in 2011. -Total Vaginal Hysterectomy 08/27/17 ('with MONICA 2 pathology and negative resection margins'). Per note dated 11/27/17 Dr. Reyes; 'patient to discontinue PAP screening'. -Vaginal pap NILM HPV negative 08/2018, per not no further paps indicated Assessment & Plan (01/11/2024 10:43 AM EDT): -Abnormal pap smear January 2011 with 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 Per Dr. Krish Loomis's note from [facility], pt was due for repeat colposcopy in 2011. -Total Vaginal Hysterectomy 08/27/17 ('with MONICA 2 pathology and negative resection margins'). Per note dated 11/27/17 Dr. Reyes; 'patient to discontinue PAP screening'. -Vaginal pap NILM HPV negative 08/2018, per not no further paps indicated Assessment & Plan (10/22/2023 9:49 AM EST): -Abnormal pap smear January 2011 with 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 Per Dr. Krish Loomis's note from [facility], pt was due for repeat colposcopy in 2011. -Total Vaginal Hysterectomy 08/27/17 ('with MONICA 2 pathology and negative resection margins'). Per note dated 11/27/17 Dr. Reyes; 'patient to discontinue PAP screening'. -Vaginal pap NILM HPV negative 08/2018, per not no further paps indicated Assessment & Plan (11/16/2022 10:58 AM EST): -Abnormal pap smear January 2011 with 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 Per Dr. Krish Loomis's note from [facility], pt was due for repeat colposcopy in 2011. -Total Vaginal Hysterectomy 08/27/17 ('with MONICA 2 pathology and negative resection margins'). Per note dated 11/27/17 Dr. Reyes; 'patient to discontinue PAP screening'. -Vaginal pap NILM HPV negative 08/2018, per not no further paps indicated Generalized pain 09/14/2014 Severe episode of recurrent major depressive disorder, with psychotic features 04/19/2014 Overview (11/09/2024): -has psychiatrist and therapist whom she follows with closely - Will call to follow up with Psychiatry on tomorrow 11/10/24 - 11/09/24 Assessment & Plan (11/09/2024 12:56 PM EST): -has psychiatrist and therapist whom she follows with closely - Will call to follow up with Psychiatry on tomorrow 11/10/24 - 11/09/24 Assessment & Plan (06/29/2024 4:15 PM EDT): -has psychiatrist and therapist whom she follows with closely Assessment & Plan (01/07/2024 10:08 AM EST): Measurement Tools [Check all that apply and include scores] PHQ9, STEFANY-7 PHQ9: 20 GAD7: 21 STAGES OF CHANGE PREPARATION PLAN: (check all that apply) Behavioral Health Integration Plan Internal Follow up with [facility] Patient Self Plan Patient to utilize skills provided in intervention , Patient to reach out to [facility] team as needed, Patient to reach out to PSYCHIATRIC as needed, and will contact [facility] Intake number to connect with jail OP services, and psychiatrist. Rule Out Diagnoses: Social Anxiety Behavioral Health Diagnoses At this time Azra meets criteria for Visit Diagnoses: Problem List Items Addressed This Visit Alcohol use disorder, moderate, dependence (CMS/HCC) Severe episode of recurrent major depressive disorder, with psychotic features (CMS/HCC) Cocaine use disorder in remission Post traumatic stress disorder (PTSD) Generalized anxiety disorder with panic attacks Polysubstance abuse 04/19/2014 Carpal tunnel syndrome 03/23/2014 Overview (11/16/2022): Nerve conduction study 12/12/2021 reveals severe carpal tunnel syndrome. Nerve conduction EMG study: Severe end-stage right carpal tunnel syndrome. Severe carpal tunnel syndrome on the left. EMG of both upper extremities including C5-T1 innervated muscles shows denervation in the abductor pollicis brevis [...] surgery 02/10/2022 and scheduled for left surgery Assessment & Plan (06/29/2024 3:38 PM EDT): Nerve conduction study 12/12/2021 reveals severe carpal tunnel syndrome. Nerve conduction EMG study: Severe end-stage right carpal tunnel syndrome. Severe carpal tunnel syndrome on the left. EMG of both upper extremities including C5-T1 innervated muscles shows denervation in the abductor pollicis brevis [...] surgery 02/10/2022 and scheduled for left surgery Assessment & Plan (10/22/2023 9:49 AM EST): Nerve conduction study 12/12/2021 reveals severe carpal tunnel syndrome. Nerve conduction EMG study: Severe end-stage right carpal tunnel syndrome. Severe carpal tunnel syndrome on the left. EMG of both upper extremities including C5-T1 innervated muscles shows denervation in the abductor pollicis brevis [...] surgery 02/10/2022 and scheduled for left surgery Assessment & Plan (11/16/2022 10:55 AM EST): Nerve conduction study 12/12/2021 reveals severe carpal tunnel syndrome. Nerve conduction EMG study: Severe end-stage right carpal tunnel syndrome. Severe carpal tunnel syndrome on the left. EMG of both upper extremities including C5-T1 innervated muscles shows denervation in the abductor pollicis brevis [...] surgery 02/10/2022 and scheduled for left surgery Tobacco dependence syndrome 03/23/2014 Overview (2024): -Cigg/day: 1-2 -Age started: -Total years smoking: -Pack year history: Encouraged smoking cessation resources such as pharmacomtherapy, [facility] smoking cessation group, and [facility] pharmacy smoking cessation clinic Discussed USPSTF recommends annual lung cancer screening with low dose CT in people who meet the following criteria: -ages 50 to 80 years. -have a 20 pack-year smoking history. -currently smoke cigarettes or quit within the past 15 years. -CT/CT chest wo IV con done in ER 11/15/24 IMPRESSION: Mild thickening of the small airways suggesting chronic bronchitis. Minimal bronchiectasis. Stable cicatrization atelectasis of the right middle lobe with significant volume loss, unchanged and likely on the basis of post radiation changes to the right breast. Otherwise, no active lung disease is identified. No interstitial disease is present. Stable scattered pulmonary nodules, largest in the right middle lobe measuring 5 mm abutting the major fissure, most likely an intrapulmonary lymph node. No change. Ancillary findings as discussed. Assessment & Plan (08/24/2024 9:42 AM EDT): -Cigg/day: 1-2 -Age started: -Total years smoking: -Pack year history: Encouraged smoking cessation resources such as pharmacomtherapy, [facility] smoking cessation group, and [facility] pharmacy smoking cessation clinic D[facility]ed [facility] recommends annual lung cancer screening with low dose CT in people who meet the following criteria: -ages 50 to 80 years. -have a 20 pack-year smoking history. -currently smoke cigarettes or quit within the past 15 years. -LDCT: Assessment & Plan (06/29/2024 4:18 PM EDT): -Cigg/day: 1-2 -Age started: -Total years smoking: -Pack year history: Encouraged smoking cessation resources such as pharmacomtherapy, [facility] smoking cessation group, and [facility] pharmacy smoking cessation clinic Discussed [facility] recommends annual lung cancer screening with low dose CT in people who meet the following criteria: -ages 50 to 80 years. -have a 20 pack-year smoking history. -currently smoke cigarettes or quit within the past 15 years. -LDCT: Assessment & Plan (01/11/2024 10:44 AM EDT): -Cigg/day: 1-2 -Age started: -Total years smoking: -Pack year history: Encouraged smoking cessation resources such as pharmacomtherapy, [facility] smoking cessation group, and [facility] pharmacy smoking cessation clinic Discussed USPST recommends annual lung cancer screening with low dose CT in people who meet the following criteria: -ages 50 to 80 years. -have a 20 pack-year smoking history. -currently smoke cigarettes or quit within the past 15 years. -LDCT: Resolved Problems Problem Noted Date Diagnosed Date Resolved Date Sharp headache 08/24/2024 10/27/2024 Overview (08/24/2024): Reports sharp headaches lasting only a couple seconds in the occipital region. -referred to neurology 08/24/24 Assessment & Plan (08/24/2024 9:48 AM EDT): Reports sharp headaches lasting only a couple seconds in the occipital region. -referred to neurology 08/24/24 History of CHF (congestive heart failure) 06/28/2024 10/27/2024 Gout of foot 06/20/2024 10/27/2024 Assessment & Plan (06/20/2024 4:00 PM EDT): Doing well but didn't tolerate Colchicine. DC colchicine and use sucralfate x 1w, then restart Allopurinol and fu with PCP. Acute gout of left foot 04/25/202410/03 Alcohol dependence with unsp ecified alcohol-induced disorder 04/25/2024 06/28/2024 Malignant neoplasm of breast 01/11/2024 01/11/2024 Right shoulder pain 10/22/2023 03/30/20 Ingrown toenail of both feet 10/22/2023 03/29/2024 Left foot pain 10/22/2023 03/30/2024 Achilles tendon pain bilateral 10/22/2023 03/30/2024 Colon cancer screening 07/22/202309/07 Overview (07/22/2023): Cologaurd ordered 07/22/2023. Assessment & Plan (07/22/2023 10:24 AM EDT): Cologaurd ordered 07/22/2023. 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 On exam today, her vitals are stable and her exam seems unchanged from previous one. Work up in progress for her c/o bilateral foot pain Hospital discharge follow-up 06/18/2023 07/20/2023 Assessment & Plan (07/14/2023 10:23 AM EDT): Patient here for a HDF. She was admitted to [facility] from 06/05-06/08 . She presented with concerns for alcohol withdrawal. Reported alcohol binge x 7 days, last drink was night prior to admission. Reported feeling anxious and having tremors along with nausea and sweating. CIWA was elevated, phenobarbital protocol initiated. She was treated with folic acid, multivitamin, and thiamine. Hyomagnesemia repleted. Mild transaminitis trended down. Ultimately she was discharged home to follow up with psychiatrist outpatient. Hypertension 05/26/2023 12/14/2023 Assessment & Plan (05/26/2023 12:12 PM EDT): Not controlled today Pt says she took her Lisinopril and chlorthalidone this morning Hypokalemia 12/09/2022 10/27/2024 Hyperaldosteronism 11/16/2022 3 Overview (11/16/2022): Seen by [facility] 04/03/2022. Initially seen 12/2021 for hyperaldosteronism. Labs [facility] 10/2021 aldosterone 8, plasma renin 0.11, aldosterone/renin 72.7. She was likely on spironolactone and lisinopril at time of labs. Advise no spironolactone for 6 weeks and recheck renin aldosterone levels with renal panel and magnesium in hat cutter. Assessment & Plan (11/16/2022 10:55 AM EST): Seen by [facility] 04/03/2022. Initially seen 12/2021 for hyperaldosteronism. Labs [facility] 10/2021 aldosterone 8, plasma renin 0.11, aldosterone/renin 72.7. She was likely on spironolactone and lisinopril at time of labs. Advise no spironolactone for 6 weeks and recheck renin aldosterone levels with renal panel and magnesium in hat cutter. Anxiety 04/19/2014 01/28/2024 Encounters * This document contains information received from the source organization and may not represent a complete record from that organization. Date Type Department Care Team Description 12/03/2024 Travel 11/25/2024 Orders Only [facility] [address] [place] [phone] Shereen Latham MD Vaginal lesion (Primary Dx) 11/23/2024 3:30 PM EST Telemedicine [facility] [address] [place] [phone] Nupur Bullock PharmD Benign essential hypertension (Primary Dx) 11/23/2024 Telephone [facility] [address] [place] [phone] Shereen Latham MD Referral 11/22/2024 Refill [facility] [address] [place] [address] Shereen Latham MD Pain 11/22/2024 Patient Outreach [facility] [address] [place] [phone] Shereen Latham MD Transition Of Care (Tcm) 11/18/2024 Telephone [facility] [address] [place] [address] Violetta Mackey MA Breast Cancer Screening 11/17/2024 2:40 PM EST Office Visit [facility] [address] [place] [phone] Shereen Latham MD Benign essential hypertension (Primary Dx); Depression with anxiety 11/17/2024 Travel 11/17/2024 Telephone [facility] [address] [place] [phone] Shereen Latham MD Nurse Triage 2024 Travel 11/10/[address] [phone] Shereen Latham MD Nurse Triage 11/10/2024 Refill [facility] [address] [place] [phone] Shereen Latham MD Benign essential hypertension 11/09/2024 11:30 AM EST Office Visit [facility] [address] [place] [phone] Shereen Latham MD Gout of foot, unspecified cause, unspecified chronicity, unspecified laterality (Primary Dx); Mild intermittent reactive airway disease without complication; Benign essential hypertension; Severe episode of recurrent major depressive disorder, with psychotic features (CMS/HCC); Alcohol use disorder, moderate, dependence (CMS/HCC); Dietary counseling; Exercise counseling; Overweight; Hypomagnesemia; Anemia, unspecified type; Cardiac risk counseling; History of right breast cancer 11/09/2024 Travel 11/08/2024 Telephone [facility] [address] [place] [address] Laura Cifuentes MD 11/08/2024 Orders Only [facility] [address] [place] [phone] Shereen Latham MD Iron deficiency anemia, unspecified iron deficiency anemia type (Primary Dx) 11/01/2024 Patient Outreach [facility] [address] [place] [address] Shereen Latham MD Transition Of Care (Tcm) 11/01/[address] [phone] Shereen Latham MD Results 10/31/2024 Orders Only [facility] External Provider, [facility] 10/31/[address] [phone] Shereen Latham MD Nurse Triage 10/24/2024 Orders Only [facility] External Provider, [facility] Tobacco dependence syndrome (Primary Dx) 10/21/2024 Telephone [facility] [address] [address] Audrey Conway RN Results 10/21/[address] [phone] Shereen Latham MD Results 10/20/2024 1:20 PM EST Office Visit [facility] [address] [phone] Tari Chance NP Cough in adult patient (Primary Dx); Lesion of nasal mucosa; Tachycardia 10/20/2024 9:30 AM EST Office Visit [facility] [address] [place] [phone] Julius, Nirali, OD Presbyopia (Primary Dx) 10/20/2024 Refill [facility] [address] [place] [address] Shereen Latham MD Benign essential hypertension 10/20/2024 Travel 10/20/2024 Telephone [facility] [address] [place] [phone] Shereen Latham MD Nurse Triage 10/17/2024 Refill [facility] [address] [place], [place] [phone] Shereen Latham MD Mild intermittent asthma, unspecified whether complicated; Pain 10/12/2024 Refill [facility] [address] [place] [phone] Shereen Latham MD Hypomagnesemia 10/11/[address] [address] Shereen Latham MD 10/03/2024 Patient Outreach [address] [address] Shereen Latham MD Transition Of Care (Tcm) 09/28/2024 9:00 AM EST Office Visit [facility] [address] [place] [phone] HeidiJenny Dental plaque (Primary Dx) 09/26/2024 Refill [facility] [address] [place] [address] Shereen Latham MD Mild intermittent asthma, unspecified whether complicated; Pain 09/14/2024 Patient Outreach [address] [address] Shereen Latham MD Transition Of Care (Tcm) 09/13/[address] [phone] Shereen Latham MD Nurse Triage 09/07/[address] [address] Shereen Latham MD ER Follow-up 09/07/[address] [address] Shereen Latham MD Results 09/07/2024 Orders Only GENERIC EXTERNAL DATA DEPARTMENT Provider, Generic External Data 09/06/[address] [address] Shereen Latham MD Nurse Triage from Last 3 Months Immunizations Name Administration Dates Next Due DTP 08/24/1978,06/29/1978 Hep A, Adult 06/29/2024 Hep B, adult 09/01/2007,07/16/2007 HepB-CpG 08/10/2020 IPV 07/05/1981, 0,08/24/1978,06/29 Influenza injectable quadriv alent IIV4 with preservative 09/06/2015 Juan Miguel SARS-CoV-2 Vaccination 02/09/2021 MMR 06/29/1978 Pneumococcal Conjugate PCV 20 03/30/2024 Pneumococcal Polysaccharide PPSV23 08/23/2008 TD (adult), 2 Lf tetanus tox oid, preservative free, adsorbed 07/16/2007,07/05/1981,05/07/1980 Td (adult), 5 Lf tetanus tox oid, preservative free, adsorbed 08/10/2020 Family History Medical History Relation Name Comments Heart disease Father Heart disease Mother Relation Name Status Comments Father Mother Social History Tobacco Use Types Packs/Day Years Used Date Smoking Tobacco: Some Days Cigarettes Passive Smoke Exposure: Current Smokeless Tobacco: Never Tobacco Cessation:Ready to Q uit: Not Asked; Counseling Given: Not Answered Alcohol Use Standard Drinks/Week Comments Yes 0 [...] the past 12 months, has t he Marco Vasco, [employer], oil or water [employer] threatened to shut off services in your home? No 08/19/2023 Depression Answer Date Recorded Patient Health Questionnaire-2 Score 3 06/07/2024 Comments No Sex and Gender Information Value Date Recorded Sex Assigned at Female 09/01/2022 10:14 AM EDT Legal Sex Female 10:14 AM EDT Gender Identity Female 09/01/2022 10:14 AM EDT Sexual Orientation Straight 09/01/2022 10 :14 AM EDT Last Filed Vital Signs Vital Sign Reading [...] Mass Index 30.07 11/09/2024 11:48 AM EST Plan of Treatment Upcoming Encounters Date Type Department Care Team (Late st Contact Info) Description 12/07/2024 2:30 PM EST Medication Management [facility] [address] [place] [address] [phone] Nupur Bullock, PharmD [address] [place] [address] 12/29/2024 10:30 AM EST Office Visit [facility] [address] [place] [phone] Shereen Latham MD [address] [place] [address] 03/29/2025 2:00 PM EDT Office Visit [facility] [address] [place] [address] Jenny Gordon [address] [place] [address] Health Maintenance Due Date Last Done Comments CT Colonography 1975 FIT 1975 FOBT 1975 Sigmoidoscopy 1975 Family Planning (PISQ) 1988 Dental X-Ray: Full Mouth 07/07/2022 07/06/2019 Zoster Vaccines (1 of 2) 2023 Mammogram 08/27/2024 08/27/2023, 10/02, 09/09/2019 Depression Monitoring (PHQ-9) 12/08/2024 06/07/2024, 06/07/2024 Dental Oral Exam 12/19/2024 06/17/2024, 07/06/2019 Hepatitis A Vaccines (2 of 2 - Risk 2-dose series) 12/30/2024 06/29/2024 SDOH Screening 01/11/2025 01/12/2024 Dental Prophylaxis 03/29/2025 09/28/2024, 1 , 07/06/2019 Alcohol/Substance Use Screening 04/25/2025 04/25/2024 Influenza Vaccine (#1) 2025 09/06/2015 Postp oned from 07/03/2024 (Patient Refused) Depression Screening 06/07/2025 06/07/2024, 06/07/20 Dental X-Ray: Bitewings 06/18/2025 06/17/20, 03/31/2024, 08/16/2021, Additional history exists DTaP/Tdap/Td Vaccines (4 - Tdap) 06/29/2025 08/10/2020, 07/16/2007, 07/05/1981, Additional history exists Postponed from 08/11/2020 (Patient Refused) COVID-19 Vaccine (2 - 2024-25 season) 2025 02/09/2021 Postponed from 07/03/2024 (Patient Refused) Tobacco Screening 11/09/2025 11/09/2024 FIT DNA/Cologuard 08/27/2026 08/27/2023 Lipid Panel 06/16/2029 06/16/2024, 09/03, 07/24/2023, Additional history exists Colonoscopy 07/11/2034 07/11/2024 Colorectal Cancer Screening 07/11/2034 RSV Patients and Patients Aged 60 years or older (1 - 1-dose 75+ series) 2048 IPV Vaccines Completed 07/05/1981, 04/1980, 08/24/1978, Additional history exists HPV/Cotest Discontinued 08/12/2018, 04/20/2017 Hepatitis B Vaccines Completed 08/10/2020, 09/01/2007, 07/16/2007 HIV Screening Completed 02/24/2024, 07/04, 01/23/2022, Additional history exists Pneumococcal Vaccine: 50+ Years Completed 03/30/2024, 08/23/2008 Hepatitis C Screening Completed 06/16/2024 , 02/24/2024, 07/24/2023, Additional history exists Cervical Cancer Screening Discontinued HIB Vaccines Aged Out No longer eligi ble based on patient's age to complete this topic HPV Vaccines Aged Out No longer eligi ble based on patient's age to complete this topic Meningococcal Vaccine Aged Out No jelly jesi eligible based on patient's age to complete this topic Pap Smear Discontinued RSV under 20 months Aged Out No longe r eligible based on patient's age to complete this topic Rotavirus Vaccines Aged Out No longer eligible based on patient's age to complete this topic Procedures Procedure Name Priority Date/Time Associated Diagnosis Comments IMMUNOGLOBULIN E Routine 11/08/2024 2:48 PM EST [...] deficiency anemia, unspecified iron deficiency anemia type CBC WITH AUTO DIFFERENTIAL Routine 11/08/2024 2:48 PM EST Iron deficiency anemia, unspecified iron deficiency anemia type MAGNESIUM Routine 11/08/2024 2:48 PM EST Hypomagnesemia HIGH SENSITIVITY TROPONIN I Routine 10/31/2024 8:13 PM EST D DIMER HIGH SENSITIVITY Routine 10/31/2024 6:39 PM EST HIGH SENSITIVITY TROPONIN I Routine 10/31/2024 6:39 PM EST LIPASE Routine 10/31/2024 6:39 PM EST COMPREHENSIVE METABOLIC PANEL Routine 10/31/2024 6:39 PM EST PROTHROMBIN TIME-INR Routine 10/31/2024 6:39 PM EST CBC WITH AUTO DIFFERENTIAL Routine 10/31/2024 6:39 PM EST SARS COV2/INFLUENZA A/B AND RSV RNA QL NAAT Routine 10/31/2024 6:38 PM EST XR CHEST 2 VIEWS Routine 10/31/2024 6:[address] CHEST WO CONTRAST Routine 10/24/2024 4:44 PM EST ECG 12-LEAD Routine 10/20/2024 4:28 PM EST Tachycardia RESPIRATORY VIRAL PANEL PCR Routine 10/20/2024 2:00 PM EST Cough in adult patient POCT INFLUENZA B (ID NOW RAPID MOLECULAR) Routine 10/20/2024 1:39 PM EST Cough in adult patient POCT INFLUENZA A (ID NOW RAPID MOLECULAR) Routine 10/20/2024 1:38 PM EST Cough in adult patient POCT RAPID COVID ANTIGEN Routine 10/20/2024 1:37 PM EST Cough in adult patient ADJUNCTIVE GENERAL SERVICES - PROFESSIONAL VISITS - CASE PRESENTATION, SUBSEQUENT TO DETAILED AND EXTENSIVE TREATMENT PLANNING Routine 09/28/2024 9:00 AM EST Dental plaque ORAL HYGIENE INSTRUCTIONS Routine 09/28/2024 9:00 AM EST Dental plaque PROPHYLAXIS - ADULT Routine 09/28/2024 9 :00 AM EST Dental plaque XR CHEST 2 VIEWS Routine 09/07/2024 9:18 AM EST HIGH SENSITIVITY TROPONIN I Routine 09/07/2024 9:06 AM EST BASIC METABOLIC PANEL Routine 09/07/2024 9:06 AM EST CBC WITH AUTO DIFFERENTIAL Routine 09/07/2024 9:06 AM EST HM COLONOSCOPY Routine 07/11/2024 BITEWINGS - 4 RADIOGRAPHIC IMAGES Routine 06/17/2024 3:30 PM EDT Encounter for dental examination PERIODIC ORAL EVALUATION - ESTABLISHED PATIENT Routine 06/17/2024 3:30 PM EDT Encounter for dental examination HEPATITIS PANEL, GENERAL Routine 06/16/2024 8:22 AM EDT Transaminitis LIPID PANEL, STANDARD Routine 06/16/2024 8:22 AM EDT Benign essential hypertension HIV 1/2 ANTIGEN/ANTIBODY, FOURTH GENERATION W/RFL Routine 02/24/2024 8:47 AM EDT Routine screening for STI (sexually transmitted infection) BI MAMMOGRAM SCREENING TOMOSYNTHESIS LEFT Routine 08/27/2023 1:00 PM EDT LAB COLOGUARD?? COLON CANCER SCREEN Routine 08/27/2023 11:24 AM EDT Colon cancer screening DIAGNOSTIC - DIAGNOSTIC IMAGING - INTRAORAL - COMPREHENSIVE SERIES OF RADIOGRAPHIC IMAGES Routine 07/06/2019 12:00 AM EDT ZZZ HISTORICAL HPV MRNA E6/E7 Routine 08/12/2018 10:57 AM EDT from Last 3 Months or Most Recently Relevant to Health Maintenance Results * (ABNORMAL) CBC auto differential (11/08/2024 2:48 PM EST) Only the most recent of3 resultswithin the time period is included. White Blood Count 9.7 4.8 - 10.8 X10*3/uL [facility] Red Blood Count 3.99(L) 4.20 - 5.50 X10*6/uL [facility] Hemoglobin 11.9(L) 12.0 - 16.0 g/dl [facility] Hematocrit 36.2(L) 37.0 - 47.0 % [facility] Mean Corpuscular Volume 90.7 80.0 - 98.0 fL [facility] Mean Corpuscular Hemoglobin 29.8 27.0 - 33.0 pg [facility] Mean Corpuscular HGB Conc 32.9 31.0 - 35.0 g/dl [facility] Red Cell Distribution Width 14.3 11.0 - 16.0 % [facility] Platelet Count 354 160 - 400 X10*3/uL [facility] Mean Platelet Volume 10.6 9.4 - 12.3 fL [facility] Neutrophils Percent Auto 68.2 45 - 73 % [facility] Imm Gran Pct Auto 0.4 0.0 - 0.4 % [facility] Lymphocytes Percent Auto 23.5 20 - 40 % [facility] Monocytes Percent Auto 5.4 2 - 11 % [facility] Eosinophils Percent Auto 2.0 0 - 4 % [facility] Basophils Percent Auto 0.5 0 - 2 % [facility] NRBC Pct Auto 0.0 0.0 - 0.2 /100WBC [facility] Neutrophils Absolute Auto 6.6 2.0 - 8.3 x10*3/uL [facility] Imm Gran Abs Auto 0.04(H) 0.00 - 0.03 X10*3/uL [facility] Lymphocytes Absolute Auto 2.3 1.2 - 4.9 X10*3/uL [facility] Monocytes Absolute Auto 0.5 0.1 - 1.2 X10*3/uL [facility] Eosinophils Absolute Auto 0.2 0.0 - 0.4 X10*3/uL [facility] Basophils Absolute Auto 0.1 0.0 - 0.2 X10*3/uL [facility] NRBC Abs Auto 0.000 0.0 - 0.012 X10*3/uL [facility] Blood Venous blood specimen / Unknown 11/08/2024 2:48 PM EST 11/08/2024 4:08 PM EST Shereen Latham MD LAB BLOOD ORDERABLES Final Result Performing Organization Address City/[facility]/ZIP Co de Phone Number [facility] [address] [place] [phone] * Iron And Total Iron Binding Capacity (11/08/2024 2:48 PM EST) [facility] Iron 66 30 - 160 mcg/dL [facility] Total Iron Binding Capacity 292 228 - 428 mcg/dL [facility] Percent Iron Saturation 23 15 - 50 % [facility] Unsaturated Iron Binding 226 ug/dL [facility] Blood Venous blood specimen / Unknown 11/08/2024 2:48 PM EST 11/08/2024 4:08 PM EST Shereen Latham MD LAB BLOOD ORDERABLES Final Result Performing Organization Address City/[facility] Co de Phone Number [facility] [address] [place] [phone] * (ABNORMAL) Magnesium (11/08/2024 2:48 PM EST) [facility] Magnesium 1.4(LL) 1.6 - 2.6 mg/dL [facility] Comment:Critical value for t est(s): MAGS Results called to and readback by: DR. GUPTA Person calling: [id number] Date:11/08/24Time: 1829: * This is a corrected result * MG previously reported as: 1.4 *L mg/dL Critical value for test(s): MAGS Results called to andreadback by: DR. GUPTA Person calling: Date:11/08/24Time:1815 Blood Venous blood specimen / Unknown 11/08/2024 2:48 PM EST 11/08/2024 4:08 PM EST us Shereen Latham MD LAB BLOOD ORDERABLES Edite d Result - Final Performing Organization Address [facility]/ZIP Co de Phone Number [facility] [address] [place] [phone] * Immunoglobulin E (11/08/2024 2:48 PM EST) [facility] Immunoglobulin E 17 <EO=169 kU/L [facility] Comment:THIS TEST WAS PERFOR MED AT:[facility] [place] [id number] BRINK MD 11/08/2024 2:48 PM EST 11/08/2024 4:08 PM EST us Generic External Data Provider LAB BLOOD ORDERAB LES Final Result Performing Organization Address [facility] Co de Phone Number [facility] [address] [place] [phone] * Ferritin (11/08/2024 2:48 PM EST) [facility] Ferritin 180 10 - 250 ng/mL [facility] Blood Venous blood specimen / Unknown 11/08/2024 2:48 PM EST 11/08/2024 4:08 PM EST Shereen Latham MD LAB BLOOD ORDERABLES Final Result Performing Organization Address [facility]/ZIP Co de Phone Number [facility] [address] [place] [phone] * Vitamin B12 (11/08/2024 2:48 PM EST) Pathologist [facility] Vitamin B12 499 200 - 900 pg/mL [facility] Comment:NORMAL 200-900 PG/ML INDETERMINATE 160-199 PG/ML DEFICIENT < 160 PG/ML Blood Venous blood specimen / Unknown 11/08/2024 2:48 PM EST 11/08/2024 4:08 PM EST Shereen Latham MD LAB BLOOD ORDERABLES Final Result Performing Organization Address [facility] de Phone Number [facility] [address] [place] [phone] * (ABNORMAL) Comprehensive Metabolic Panel (11/08/2024 2:48 PM EST) Only the most recent of2 resultswithin the time period is included. Pathologist [facility] Sodium 143 135 - 145 mmol/L [facility] Potassium 3.8 3.3 - 5.1 mmol/L [facility] Chloride 106 96 - 108 mmol/L [facility] Carbon Dioxide 27 22 - 29 mmol/L [facility] Anion Gap 14 12 - 20 [facility] Urea Nitrogen (BUN) 22(H) 9 - 16 mg/dL [facility] Creatinine, Serum 0.99 0.5 - 1.4 mg/dL [facility] Estimated Glomerular Filt Rate 59 [facility] Comment:Chronic Kidney Disea se: Estimated GFR < 60 mL/min/[id number] Kidney Disease: Estimated GFR < 15 mL/min/1.73m2 Glucose 128(H) 60 - 115 mg/dL [facility] Calcium 9.6 8.4 - 10.2 mg/dL [facility] Bilirubin, Total 0.4 0.0 - 1.0 mg/dL [facility] Aspartate Amino Transferase 25 5 - 31 U/L [facility] Alanine Aminotransferase 31 0 - 31 U/L [facility] Total Protein 7.3 6.5 - 8.0 g/dL [facility] Albumin Level 4.3 3.5 - 5.0 g/dL [facility] Alkaline Phosphatase 85 39 - 117 U/L [facility] 11/08/2024 2:48 PM EST 11/08/2024 4:08 PM EST us Generic External Data Provider LAB BLOOD ORDERAB LES Final Result Performing Organization Address [facility] [address] [place] [address] [phone] * High Sensitivity Troponin I (10/31/2024 8:13 PM EST) Only the most recent of3 resultswithin the time period is included. [facility] TROPONIN I HIGH SENSITIVITY 6.9 <3.5 - 17.0 ng/L [facility] Comment:The Henriquez high sens itivity Troponin-I results should beused in conjunction with other diagnostic information suchas ECG, clinical observations and information, and patientsymptoms to aid in the diagnosis of ME. 10/31/2024 8:13 PM EST 10/31/2024 8:14 PM EST us Generic External Data Provider LAB BLOOD ORDERAB LES Final Result Performing Organization Address [facility] Co de Phone Number [facility] [address] [place] [phone] * D Dimer High Sensitivity (10/31/2024 6:39 PM EST) [facility] D Dimer High Sensitivity <150 NG/ML [facility] Comment:D-DIMER HS REFERENCE RANGENote: Our assay reports D-Dimer Units (D- DU).The cut-off value for venous thromboembolic (VTE) disease is230 ng/mL. This value has a very high negative predictivevalue when the patient has a low to moderate clinicalprobability of VTE.The upper limit of normal is 243 ng/mL. 10/31/2024 6:39 PM EST 10/31/2024 6:41 PM EST Generic External Data Provider LAB BLOOD ORDERAB LES Final Result Performing Organization Address [facility] Co de Phone Number [facility] [address] [place] [address] [phone] * Prothrombin Time-INR (10/31/2024 6:39 PM EST) Prothrombin Time 11.6 10.9 - 12.4 SEC [facility] INTERNATIONAL NORM RATIO 1.0 0.9 - 1.1 [facility] Comment:INTERNATIONAL NORMAL IZED RATIO (INR) REFERENCE RANGES Reference RangeFor patients not on anticoagulant therapy: 0.9 - 1.1INR ranges for oral anticoagulanttherapy:For prevention and treatment of venous thrombosis and pulmonary embolism: 2.0 - 3.0For acute myocardial infarction with aspirin therapy: 2.0 - 3.0For acute myocardial infarction without aspirin therapy: 3.0 - 4.0For patients with mechanical prosthetic heart valves: 2.5 - 3.5 10/31/2024 6:39 PM EST 10/31/2024 6:41 PM EST [employer] External Data Provider LAB BLOOD ORDERAB LES Final Result Performing Organization Address [facility] Co de Phone Number [facility] [address] [place] [address] [phone] * Lipase (10/31/2024 6:39 PM EST) Lipase 58 8 - 78 U/L [facility] 10/31/2024 6:39 PM EST 10/31/2024 6:41 PM EST Generic External Data Provider LAB BLOOD ORDERAB LES Final Result Performing Organization Address [facility] Co de Phone Number [facility] [address] [place] [phone] * SARS-CoV-2 RNA, Influenza A/B, and RSV RNA, Ql NAAT (10/31/2024 6:38 PM EST) Influenza A PCR NEGATIVE Negative [facility] Influenza B PCR NEGATIVE Negative [facility] Resp Syncy Virus RNA Qual PCR NEGATIVE Negative [facility] SARS COV2 PCR NEGATIVE Negative [facility] Comment:All test results mus t be correlated with clinical findings.Negative results do not preclude SARS-CoV2, influenza Avirus, influenza B virus and/or RSV infectionand should not be used as the sole basis for treatment orother patient management decisions. Negative results must becombined with clinical observations, patient history, andepidemiological information.This test has not been evaluated for monitoring treatment ofinfection.This test has been authorized by the FDA under an EmergencyUse Authorization (EUA) for use by authorized laboratories.Testing performed on the [employer] GeneXpert utilizingreal-time RT-PCR.All SARS CoV2 and positive influenza A/B results arereported to [facility]. 10/31/2024 6:38 PM EST 10/31/2024 6:41 PM EST Generic External Data Provider LAB MICROBIOLOGY - GENERAL ORDERABLES Final Result Performing Organization Address [facility] Co de Phone Number [facility] [address] [place] [phone] * XR Chest 2 Views (10/31/2024 6:15 PM EST) Only the most recent of2 resultswithin the time period is included. Anatomical Region Laterality Modality Chest Radiographic Celina ging 10/31/2024 6:15 PM EST Narrative 10/31/2024 6:17 PM EST ? [facility] ?[address] ?[place] [address] ?XRay Report ? Signed ? Patient: Cast,Azra ?MR#: [id number] ?? [id number] ? : 1975 ?Acct:[id number] ? Age/Sex: 48 / F ?ADM Date: 10/31/24 ? Loc: HO.ED ? Attending Dr: ? Ordering Physician: Tesfaye Allen ?? Date of Service: 10/31/24 ?? Procedure(s): XR chest 2V ?? Accession Number(s): [id number] ? cc: Shereen Latham MD; Tesfaye Allen ? CLINICAL HISTORY: Chest pain ? Two views of the chest. ? COMPARISON: XR chest dated 09/07/24 at 09:29 EST ? FINDINGS: ?? Right sided breast implant. ? Normal heart and mediastinal contours. ?? No consolidation. ?? No pleural effusion or pneumothorax. ?? Mild rightward curvature of the lower thoracic spine. No fracture ?? identified. ? IMPRESSION: ?? 1. No acute cardiopulmonary abnormality. ? This document has been electronically signed by: Jax Rivera MD on ?? 10/31/2024 18:15:32 ? Dictated By: ?Jax Rivera MD ? Signed By: ?<Electronically signed by Jax Rivera MD in OV> ?10/31/24 1816 ? DD/ 14 ? TD/TT: 10/31/241814 ? Electronic Masking System Operator: ? Procedure Note Sumi, Gypsy - 10/31/[address] [address] XRay Report Signed Patient: Maged Cast#: [id number] : 1975Acct:[id number] Age/Sex: 48 / FADM Date: 10/31/24 Loc: HO.ED Attending Dr: Ordering Physician: Tesfaye Allen Date of Service: 10/31/24 Procedure(s): XR chest 2V Accession Number(s): [id number] cc: Shereen Latham MD; Tesfaye Allen CLINICAL HISTORY: Chest pain Two views of the chest. COMPARISON: XR chest dated 09/07/24 at 09:29 EST FINDINGS: Right sided breast implant. Normal heart and mediastinal contours. No consolidation. No pleural effusion or pneumothorax. Mild rightward curvature of the lower thoracic spine. No fracture identified. IMPRESSION: 1. No acute cardiopulmonary abnormality. This document has been electronically signed by: Jax Rivera MD on 10/31/2024 18:15:32 Dictated By: Jax Rivera MD Signed By: <Electronically signed by Jax Rivera MD in OV> 10/31/241815 DD/ 14 TD/TT: 10/31/241814 Electronic Masking System Operator: [facility] External Provider IMG XR PROCEDURES Final Result * CT Chest w/o Contrast (10/24/2024 4:44 PM EST) Anatomical Region Laterality Modality Body, Chest Computed Tomogra phy 10/24/2024 4:44 PM EST Narrative 11/14/2024 11:53 AM EST ? [facility] ?[address] ?[place] [address] ? CT Scan Report ? Signed ? Patient: Azra Cast ?MR#: [id number] ?? [id number] ? : 1975 ?Acct:[id number] ? Age/Sex: 48 / F ?ADM Date: 10/24/24 ? Loc: HO.CT ? Attending Dr: Sury Benitez [employer] ? Ordering Physician: Sury Benitez NP ?? Date of Service: 10/24/24 ?? Procedure(s): CT chest wo IV con ?? Accession Number(s): [id number] ? cc: Shereen Latham MD; Sury Benitez NP ? Report Number: ?? [id number]: Total DLP = ??321.00 mGy-cm ?? EXAMINATION: [...] Exam submitted for review 11/14/2024 10:14 AM BENEFITS ANALYST. ? FINDINGS: ? PULMONARY NODULES: ?? -There [...] DD/ 1644 ? TD/TT: 10/24/24 1657 ? Electronic Masking System Operator: ? Procedure Note Sumi, Image - 11/14/[address] [place] [address] [address] Scan Report Signed Patient: Maged Cast#: [id number] : 1975Acct:[id number] Age/Sex: 48 / FADM Date: 10/24/24 Loc: HO.CT Attending Dr: Sury Benitez [employer] Ordering Physician: Sury Benitez NP Date of Service: 10/24/24 Procedure(s): CT chest wo IV con Accession Number(s): [id number] cc: Shereen Latham MD; Sury Benitez NP Report Number: [id number]: Total DLP = 321.00 mGy-cm EXAMINATION: CT [...] Exam submitted for review 11/14/2024 10:14 AM BENEFITS ANALYST. FINDINGS: PULMONARY NODULES: -There are a few [...] Akbar Galicia MD 11/14/2024 11:50 AM EST RP Dictated By: Akbar Galicia MD Signed By: <Electronically signed by Akbar Galicia MD in OV> 11/14/24 1150 DD/ 1644 TD/TT: 10/24/24 1657 Electronic Masking System Operator: [facility] External Provider IMG CT PROCEDURES Edited Result - Final * ECG 12 lead (10/20/2024 4:28 PM EST) Narrative Tari Chance NP - 10/20/2024 4:28 PM EST HR 111 bpm, axis, interval, morphology normal. Sinus tachycardia ECG Tari Chance NP ECG ORDERABLES Final Result * (ABNORMAL) Respiratory Viral Panel PCR (10/20/2024 2:00 PM EST) Adenovirus PCR Not Detected Not Detect. [facility] Bordetella pertussis PCR Not Detected Not Detect. [facility] Comment:Interpret results wi th caution. If B. pertussis isspecifically suspected, additional testing using analternate method is recommended. Bordetella parapertussis PCR Not Detected Not Detect. [facility] Chlamydia pneumoniae PCR Not Detected Not Detect. [facility] Coronavirus 229E PCR Not Detected Not Detect. [facility] Coronavirus HKU1 PCR Not Detected Not Detect. [facility] Coronavirus NL63 PCR Not Detected Not Detect. [facility] Coronavirus OC43 PCR Not Detected Not Detect. [facility] SARS-CoV-2 PCR Not Detected Not Detect. [facility] Comment:SARS-CoV-2 not detec zane by real-time RT-PCR.Note: If clinical suspicion for Sars-CoV-2 is high, continueto maintain precautions and consider repeat testing.Test results should be interpreted in the context ofclinical findings and other laboratory data.Rare polymorphisms exist that could lead to false-negativeor false-positive results. If results do not match theclinical findings, additional testing should be considered.Results reported to [facility].This test has been authorized by the FDA under the EmergencyUse Authorization (EUA) for use by authorized laboratories. Influenza A PCR Not Detected Not Detect. [facility] Influenza B PCR Not Detected Not Detect. [facility] Human metapneumovirus PCR Not Detected Not Detect. [facility] Rhino/Enterovirus PCR Detected(A) Not Detect. [facility] Mycoplasma pneumoniae PCR Not Detected Not Detect. [facility] Parainfluenza 1 PCR Not Detected Not Detect. [facility] Parainfluenza 2 PCR Not Detected Not Detect. [facility] Parainfluenza 3 PCR Not Detected Not Detect. [facility] Parainfluenza 4 PCR Not Detected Not Detect. [facility] RSV PCR Not Detected Not Detect. [facility] Resp Panel NA Note See Note H [facility] Comment:All results must be correlated with clinical findings.Negative results should not be used as the sole basis fordiagnosis, treatment, or other management decisions.A negative result does not exclude the possibility of viralor bacterial infection. Negative results may occur from thepresence of sequence variants in the region targeted by theassay, the presence of inhibitors, an infection caused by anorganism not detected by the panel, or lower respiratorytract infections that are not detected by a nasopharyngealswab specimen. Test results may also be affected byconcurrent antiviral/antibacterial therapy or levels oforganism in the specimen that are below the limit ofdetection for this test.This assay is performed by Multiplexed PCR, utilizing [employer] Film Array. Swab 10/20/2024 2:00 PM EST 10/20/2024 5:33 PM EST Tari Chance NP LAB BLOOD ORDERABLES Final Resu lt [facility] [address] [place] [address] [phone] * Influenza B (ID NOW Rapid Molecular) (10/20/2024 1:39 PM EST) [facility] Influenza B Negative Negative, Indeterminate [facility] Swab 10/20/2024 1:39 PM EST us Tari Ledesmam [employer]CH[employer] POINT OF CARE TEST ENTER/EDIT O RDERABLES Final Result Performing Organization Address City/[facility]/ZIP Co de Phone Number [facility] [address] [place] [address] [phone] * Influenza A (ID NOW Rapid Molecular) (10/20/2024 1:38 PM EST) [facility] Influenza A Negative Negative, Indeterminate [facility] Swab 10/20/2024 1:38 PM EST us Marc Calliem [employer]CH[employer] POINT OF CARE TEST ENTER/EDIT O RDERABLES Final Result Performing Organization Address City/[facility]/ZIP Co de Phone Number [facility] [address] [place] [address] [phone] * POCT Rapid COVID Ag (10/20/2024 1:37 PM EST) [facility] Rapid COVID Ag Negative Swab 10/20/2024 1:37 PM EST us Tari Chance [employer] POINT OF CARE TEST ENTER/EDIT O RDERABLES Final Result * (ABNORMAL) Basic Metabolic Panel (09/07/2024 9:06 AM EST) [facility] Sodium 139 135 - 145 mmol/L [facility] Potassium 4.0 3.3 - 5.1 mmol/L [facility] Chloride 107 96 - 108 mmol/L [facility] Carbon Dioxide 21(L) 22 - 29 mmol/L [facility] Anion Gap 15 12 - 20 [facility] Urea Nitrogen (BUN) 28(H) 9 - 16 mg/dL [facility] Creatinine, Serum 0.86 0.5 - 1.4 mg/dL [facility] Creatinine Clr Calc Pharmacy 85.9 [facility] Comment:Provided height and weight: 170.18 cm,81.647 kg.eGFR (calculated from the MDRD study equation) and eCrCl(calculated from the Cockcroft-Gault equation) are based ondifferent parameters and may not yield comparable results.If eCrCl result is absurd, please check patient'sheight/weight. Estimated Glomerular Filt Rate >60 [facility] Comment:NOTE: For -Am erican individuals, multiply the result by 1.210.Chronic Kidney Disease: Estimated GFR < 60 mL/min/1.23z5Zfaanp Kidney Disease: Estimated GFR < 15 mL/min/1.73m2 Glucose 156(H) 60 - 115 mg/dL [facility] Calcium 9.6 8.4 - 10.2 mg/dL [facility] 09/07/2024 9:06 AM EST 09/07/2024 9:09 AM EST us Generic External Data Provider LAB BLOOD ORDERAB LES Final Result [facility] [address] [place] [phone] * (ABNORMAL) Colonoscopy (07/11/2024) Colonoscopy Abnormal( A) Normal Comment:Herberth Stokes MD ?tubular adenoma x 3 Herberth Stokes MD HEALTH MAINTENANCE Final Result * Hepatitis Panel, General (06/16/2024 8:22 AM EDT) Hepatitis A IgM Nonreactive Nonreactive [facility] Comment:IgM antibodies to VIRAMONTES V not detected; does not exclude earlyacute or recovered HAV infection. ~Hepatitis B Surface Antibody REACTIVE Nonreactive [facility] Comment:REACTIVE: > 11.99 mI U/mL Hepatitis B Core Antibody Nonreactive Nonreactive [facility] Hepatitis C Antibody Nonreactive Nonreactive [facility] Comment:Antibodies to HCV no t detected; does not exclude early acuteHCV infection. Hepatitis B Surface Ag Negative Negative [facility] Blood Venous blood specimen / Unknown 06/16/2024 8:22 AM EDT 06/16/2024 11:18 AM EDT Shereen Latham MD LAB BLOOD ORDERABLES Final Result Performing Organization Address [facility]/ZIP Co de Phone Number [facility] [address] [place] [address] [phone] * (ABNORMAL) Lipid Panel, Standard (06/16/2024 8:22 AM EDT) Triglycerides 223(H) <150 mg/dL [facility] Comment:Desirable Triglyceri de: less than 150 mg/dLBorderline High Triglyceride 150-199 mg/dLHigh Triglyceride: 200-499 mg/dLVery High Triglyceride: greater than or equal to 5OO mg/dL Cholesterol 194 <200 mg/dL [facility] Comment:Desirable Cholestero l: less than 200 mg/dLBorderline High Cholesterol: 200-239 mg/dLHigh Cholesterol: greater than 239 mg/dL LDL Cholesterol Calculated 106(H) <100 mg/dL [facility] Comment:Desirable LDL: less than 100 mg/dLNear Optimal/Above Optimal LDL: 110- 129 mg/dLBorderline High LDL: 130-159 mg/dLHigh LDL: 160-189 mg/dLVery High LDL: greater than or equal to 190 mg/dL HDL Cholesterol 44 >40 mg/dL [facility] Comment:Desirable HDL: great er than 40 mg/dL Note: This HDL assay may give artificially low results in patients with liver disease. Blood Venous blood specimen / Unknown 06/16/2024 8:22 AM EDT 06/16/2024 11:09 AM EDT Shereen Latham MD LAB BLOOD ORDERABLES Final Result Performing Organization Address City/[facility]/ZIP Co de Phone Number [facility] [address] [place] [address] [phone] * HIV-1/2 Antigen and Antibodies, Fourth Generation, with Reflexes (02/24/2024 8:47 AM EDT) HIV AB/AG Nonreactive Nonreactive [facility] Comment:HIV-1 p24 Ag and/or HIV-1/HIV-2 Ab not detected.A test result that is nonreactive does not exclude thepossibility of exposure to or infection with HIV-1 and/orHIV-2. Nonreactive results in this assay for individualswith prior exposure to HIV-1 and/or HIV-2 may be due toantigen and antibody levels that are below the limit ofdetection of this assay.The [employer] HIV Ag/Ab Combo assay result andsupplemental assay results should be interpreted inconjunction with the patient's clinical presentation,history and other laboratory results. If the results areinconsistent with clinical evidence, additional testing issuggested to confirm the result. Blood Venous blood specimen / Unknown 02/24/2024 8:47 AM EDT 02/24/2024 11:22 AM EDT us Naomi De Jesus [facility] LAB BLOOD ORDERABLES Final Resul t [facility] [address] [place] [phone] * BI Mammogram Screening Tomosynthesis Left (08/27/2023 1:00 PM EDT) Anatomical Region Laterality Modality Breast Left Mammography 08/27/2023 1:00 PM EDT Narrative 09/14/2023 6:06 AM EST ? [facility] [place] ? [address] ?[place] [address] ? Mammography Report ? Signed ? Patient: Segun,Azra ?MR#: [id number] ?? [id number] ? : 1975 ?Acct:[id number] ? Age/Sex: 47 / F ?ADM Date: 10/26/23 ? Loc: HO.MAMMO ? Attending Dr: Bhupinder Bennett MD ? Ordering Physician: Li Grande MD ?Results: 1Negat ?? dasia ? Date of Service: 08/27/23 ?Follow Up: 1 Year From Orig ?? inal Mammogram ? Procedure(s): MM tomosynthesis screening LT ?? Accession Number(s): [id number] ? cc: Bhupinder Bennett MD; Li Grande MD ? EXAMINATION: ?? MM SCREENING DIGITAL BREAST TOMOSYNTHESIS, LEFT ? CLINICAL INFORMATION: ? Screening. Asymptomatic. ? The patient is status post right mastectomy. ? COMPARISON: ?? Mammography: This study is compared with prior exams dating back to ?? 2017. ? TECHNIQUE: ?? Digital breast tomosynthesis is performed in both the craniocaudal and ?? mediolateral oblique views along with computer-aided detection (CAD). ?? Synthesized 2D images are generated from the tomosynthesis. ? FINDINGS: ?? There are scattered areas of fibroglandular density (ACR BI-RADS breast ?? composition Category b). ? There are no significant masses, abnormal calcifications, or other ?? abnormalities. ? MM/MM tomosynthesis screening LT ?? IMPRESSION: ?? No mammographic evidence of malignancy. ? ASSESSMENT: ? BI-RADS BI-RADS 1 - Negative ? RECOMMENDATION: ?? Routine annual mammography screening. ? 1 year F/U ? This examination should not preclude the clinical evaluation of a ?? suspicious palpable abnormality. ? This patient's information was entered into a reminder system with a ?? target due date for their next mammogram. ? Dictated By: ?Fabiola Flores MD ? Signed By: ?<Electronically signed by Fabiola Flores MD in OV> ? 09/14/23 06 ? DD/ 1300 ? TD/TT: ? Electronic Masking System Operator: ? Procedure Note Donalonzoter, Image - 09/14/2023 [facility] [address] [place] [address] Mammography Report Signed Patient: Maged Cast#: [id number] : 1975Acct:[id number] Age/Sex: 47 / FADM Date: 08/27/23 Loc: HO.MAMMO Attending Dr: Bhupinder Bennett MD Ordering Physician: Li Grande MDResults: 1Negat dasia Date of Service: 08/27/23Follow Up: 1 Year From Orig inal Mammogram Procedure(s): MM tomosynthesis screening LT Accession Number(s): [id number] cc: Bhupinder Bennett MD; Li Grande MD EXAMINATION: MM SCREENING DIGITAL BREAST TOMOSYNTHESIS, LEFT CLINICAL INFORMATION: Screening. Asymptomatic. The patient is status post right mastectomy. COMPARISON: Mammography: This study is compared with prior exams dating back to 2017. TECHNIQUE: Digital breast tomosynthesis is performed in both the craniocaudal and mediolateral oblique views along with computer-aided detection (CAD). Synthesized 2D images are generated from the tomosynthesis. FINDINGS: There are scattered areas of fibroglandular density (ACR BI-RADS breast composition Category b). There are no significant masses, abnormal calcifications, or other abnormalities. MM/MM tomosynthesis screening LT IMPRESSION: No mammographic evidence of malignancy. ASSESSMENT: BI-RADS BI-RADS 1 - Negative RECOMMENDATION: Routine annual mammography screening. 1 year F/U This examination should not preclude the clinical evaluation of a suspicious palpable abnormality. This patient's information was entered into a reminder system with a target due date for their next mammogram. Dictated By: Fabiola Flores MD Signed By: <Electronically signed by Fabiola Flores MD in OV> 09/14/23 0602 DD/ 1300 TD/TT: Electronic Masking System Operator: [facility] External Provider IMG BI PROCEDURES Final Result * (ABNORMAL) Cologuard?? colon cancer screening (08/27/2023 11:24 AM EDT) Cologuard Result Positive( A) Negative 09/05/2023 10:16 PM EDT [facility] (CLIA #:[id number]) Comment: POSITIVE TEST RESULT. A positive Cologuard result should be followed with a colonoscopy or visual examination of the colon. The normal value (reference range) for this assay is negative. TEST DESCRIPTION: Composite algorithmic analysis of stool DNA-biomarkers with hemoglobin immunoassay. ?? Quantitative values of individual biomarkers are not reportable and are not associated with individual biomarker result reference ranges. Cologuard is intended for colorectal cancer screening of adults of either sex, 45 years or older, who are at average-risk for colorectal cancer (CRC). Cologuard has been approved for use by the U.S. FDA. The performance of Cologuard was established in a cross sectional study of average-risk adults aged 50-84. Cologuard performance in patients ages 45 to 49 years was estimated by sub-group analysis of near-age groups. Colonoscopies performed for a positive result may find as the most clinically significant lesion: colorectal cancer [4.0%], advanced adenoma (including sessile serrated polyps greater than or equal to 1cm diameter) [20%] or non- advanced adenoma [31%]; or no colorectal neoplasia [45%]. These estimates are derived from a prospective cross-sectional screening study of 10,000 individuals at average risk for colorectal cancer who were screened with both Cologuard and colonoscopy. (Felix Mccoy al, N Engl J Med 2014;370(14):0633-0677.) Cologuard may produce a false negative or false positive result (no colorectal cancer or precancerous polyp present at colonoscopy follow up). A negative Cologuard test result does not guarantee the absence of CRC or advanced adenoma (pre-cancer). The current Cologuard screening interval is every 3 years. ([place] [employer] Society and U.S. Multi-Society Task Force). Cologuard performance data in a 10,000 patient pivotal study using colonoscopy as the reference method can be accessed at the following location: [email or web address].Trusper/results. Additional description of the Cologuard test process, warnings and precautions can be found at www.[employer]ia Biosciencesrd.com. Stool specimen (specimen) 08/27/2023 11:24 AM EDT 08/29/2023 6:48 AM EDT us Shereen Latham MD LAB MOLECULAR DIAGNOSTICS ORDERABLES Final Result [facility] (CLIA #:[id number]) [address] [place] [address], * HPV mRNA E6/E7 (08/12/2018 10:57 AM EDT) HPV mRNA E6/E7 Not Detected NOT DETECTED [facility] Comment: This test was performed using the APTIMA(R) HPV Assay ([employer] This assay detects E6/E7 viral messenger RNA (mRNA) from 14 high-risk HPV types (16,18,31,33,35,39,45,51, 52,56,58,59,66,68). For additional information please refer to: http://education.[employer].Trusper/faq/WSI076p5 (This link is being provided for informational/ educational purposes only.) The analytical performance characteristics of this assay have been determined by [employer] [place], [place]. The modifications have not been cleared or approved by the FDA. This assay has been validated pursuant to the CLIA regulations and is used for clinical purposes. Test Performed by [facility], [employer] [place], [address] [place] [address] Dwaine Morelos M.D., Ph.D., Director of Laboratories , CLIA [id number] Please note: ??Effective 07/14/2016, HPV testing will be performed using [employer]'s APTIMA test which targets mRNA. Detecting mRNA instead of DNA, as in older methods, offers significant improvements in specificity. 08/12/2018 10:5 7 AM EDT us Shereen Latham MD HISTORICAL/NON ORDERABLE L ABS Final Result [facility] [address] from Last 3 Months or Most Recently Relevant to Health Maintenance Insurance [employer] C3 Advance Directives Documents on File Type Date Recorded Patient Thread Winder Automatic Expl anation Advance Directives and Living Will 07/05/2024 11:59 AM Health Care Proxy Care Teams Tarring Machine Operator Relationship Specialty Start Date End Date Shereen Latham MD [address] [place] [address] PCP - General Family Medicine 11/02/18 Nupur Bullock, CharleneD [address] [place] [address] Pharmacist Internal Medicine 08/09/24 Sury Benitez [address] [place] [address] [address] Pulmonary Disease 09/27/24 Nirali Madrid OD [address] [place] [address] Optometry 10/27/24 Li Grande MD [address] [place] [address] Hematology and Oncology 10/27/24 Anselmo Gates MD [address] [place] [address] Orthopaedic Surgery 10/27/24 Margaret Holman [address] [facility] 3rd [place] [address] Cardiology 10/27/24 Herberth Stokes MD [address] [facility] [address]rd [place] [address] Gastroenterology 10/27/24 Pily Delaney Estimator Printing Plate MakingRn Liaison 07/22/24
--- OUTSIDE RECORDS SUMMARY | 2024-12-06 09:48 | XMS_ITS | Encounter Summary ---
Author Organization [employer] Address [address] [facility] 7t [place] [address] Care Team Providers Care Intake Man Name Role Phone Shereen Latham MD Primary Care Provider [phone] Nupur Bullock PharmD Unavailable Sury Benitez Unavailable [phone] Nirali Madrid OD Unavailable [phone] Li Grande MD Unavailable [phone] Anselmo Gates MD Unavailable Margaret Holman Unavailable Herberth Stokes MD Unavailable [phone] Reason for Visit * Reason Onset Date Comments Hospital Follow-up 01/05/2023 Encounter Details Date Type Department Care Team (Late st Contact Info) Description 01/05/2023 Telephone [facility] [address] [place], [place] [phone] Shereen Latham MD [address], [place] [phone] Hospital Follow-up Social History Tobacco Use Types Packs/Day Years Used Date Smoking Tobacco: Never Assessed Alcohol Answer Date Recorded Frequency of Alcohol [...] Patient Health Questionnaire-2 Score 3 06/07/2024 Comments Unknown Sex and Gender Information Value Date Recorded Sex Assigned at Female 09/01/2022 10:14 AM EDT Legal Sex Female 10:14 AM EDT Gender Identity Female 09/01/2022 10:14 AM EDT Sexual Orientation Straight 09/01/2022 10 :14 AM EDT COVID-19 Exposure Response Date Recorded In the last 10 days, have yo u been in contact with someone who was confirmed or suspected to have Coronavirus/COVID-19? No / Unsure 04/23/2023 2:02 PM EDT documented as of this encounter Miscellaneous Notes * Telephone Encounter - Zaria Cano RN - 01/05/2023 12:37 PM EST Call to Azra Cast, reports being discharged from [facility] On 01/03/23 for Alcohol withdrawal. Pt reports since discharge having nausea and dizziness. Pt has tried to maintain adequate hydration. Pt denies any meds given upon discharge. Pt booked for first available HDF on 01/21/23 at 2:30pm with [facility]. Pt advised to seek [facility] for acute concerns of dizziness and nausea but will need to keepHDF appt as scheduled. Pt also advised to continue to avoid any alcohol. Pt verbalized understanding. Sent to Clinical Care Coordinators for HDF log tracking. Protocol Used: Alcohol Use and Problems (Adult) Protocol-Based Disposition: Call Local Agency Today Override (Final) Disposition: See in Office or Video Visit within 2 Weeks Override Reason: Other Override Notes: Seen at ER for AW. needs follow up. Video visit offer not recorded Positive Triage Question: * Female and 7 or more drinks per week OR more than 3 drinks on single occasion * All higher-acuity triage questions were negative Care Advice Discussed: * Reassurance and Education - Alcohol Use and Unhealthy Use * Reasons To Call Back - You become worse * Alcoholics Anonymous (AA) * Telephone Encounter - Sandeep Chapman - 01/05/2023 11:51 AM EST Patient calling for HDF follow up appointment. Patient hospitalized at 12/30/22 @ [facility]. and discharged on 01/03/23. Pt was seen for anxiety and withdraw, pt states still have anxiety, dizziness and nausea. Patient advised will forward to team nurse for follow up and appointment scheduling. Please contact at [phone] documented in this encounter Plan of Treatment Upcoming Encounters Date Type Department Care Team (Late st Contact Info) Description 12/07/2024 2:30 PM EST Medication Management [facility] [address] [place] [address] Nupur Bullock, PharmD [address] [place] [address] 12/29/2024 10:30 AM EST Office Visit [facility] [address] [place] [address] Shereen Latham MD [address] [place] [address] 03/29/2025 2:00 PM EDT Office Visit [facility] [address] [place] [address] Jenny Gordon [address] [place] [address] documented as of this encounter Visit Diagnoses Not on filedocumented in this encounter Care Teams Intake Man Relationship Specialty Start Date End Date Shereen Latham MD [address] [place] [address] PCP - General Family Medicine 11/02/18 Nupur Bullock, CharleneD [address] [place] [address] Pharmacist Internal Medicine 08/09/24 Sury Benitez [address] [place] [address] [address] Pulmonary Disease 09/27/24 Nirali Madrid OD [address] [place] [address] Optometry 10/27/24 Li Grande MD [address] [place] [address] Hematology and Oncology 10/27/24 Anselmo Gates MD [address] [place] [address] Orthopaedic Surgery 10/27/24 Margaret Holman [address] [facility] [address] [place] [address] Cardiology 10/27/24 Herberht Stokes MD [address] [facility] [address] [place] [address] Gastroenterology 10/27/24 Pily Delaney Machinist Tool And DieCnc Manufacturing Engineer 07/22/24 documented as of this encounter
[2024-12-06 10:03] LABS: Alanine Aminotransferase 12 U/L (0-31); Albumin Level 3.9 g/dL (3.5-5.0); Alkaline Phosphatase 83 U/L (39-117); Anion Gap 18 (12-20); Aspartate Amino Transferase 15 U/L (5-31); Bilirubin Total 0.4 mg/dL (0.0-1.0); Blood Urea Nitrogen 25 mg/dL (9-16); Carbon Dioxide 24 mmol/L (22-29); Chloride 105 mmol/L (96-108); Estimated Glomerular Filt Rate > 60; Glucose Random 131 mg/dL (60-115); Lipase 50 U/L (8-78); Potassium 4.2 mmol/L (3.3-5.1); Sodium 143 mmol/L (135-145); Total Protein 6.9 g/dL (6.5-8.0)
[2024-12-06 10:24] LABS: Influenza A PCR POSITIVE (Negative); Influenza B PCR NEGATIVE (Negative); Resp Syncy Virus RNA Qual PCR NEGATIVE (Negative); SARS COV2 PCR INHOUSE NEGATIVE (Negative)
[2024-12-06 11:21] LABS: Appearance Urine Clear; Color Urine Yellow; Glucose Urine UA Negative (Negative); Leukocyte Esterase Urine Negative (Negative); Nitrite Urine Negative (Negative); Specific Gravity - Urine 1.025 (1.005-1.025); Urine Blood Negative (Negative); Urine Ketones Negative (Negative); Urine Protein Negative (Neg-Trace)
[2024-12-06] MEDS: ondansetron HCL 4 MG/2 ML VIAL IVPUSH (11:34)
[2024-12-06 11:35] VITALS: RESP 18
[2024-12-06] MEDS: Morphine Sulfate 4 MG/ML CARTRIDGE IVPUSH (11:35)
[2024-12-06 11:37] LABS: Magnesium 1.6 mg/dL (1.6-2.6)
--- NOTE | 2024-12-06 11:59 | ED_ITS ---
HPI - Abdominal Pain General Chief Complaint: Abdominal Pain Stated Complaint: abd pain Time Seen by Provider: 12/06/24 10:50 Source: patient and old records reviewed Limitations: no limitations History of Present Illness ED Provider: WILDER HPI narrative: 49 yo female with PMH of bronchitis, CHF with preserved EF, gout, anemia, alcohol use disorder, PTSD, HTN, anemia here with c/o recovering from Flu A starting two weeks ago but still has dry cough when she coughs her abdomen hurts. She notes around 1am increased RLQ pain but no associated n/v/d or urinary symptoms. She denies trauma. It hurts to move and walk. MD elicited complaint: abdominal pain Pertinent past history: none Onset (ago): hour(s) (1am today) Pain Consistency: constant Location: RLQ Severity: moderate Quality: stabbing and aching Radiation: none Migration to: no migration Exacerbating factors: movement Relieving factors: nothing Context: other Associated symptoms: denies other symptoms Related Data Home Medications ?Medication ?Instructions ?Recorded ?Confirmed folic acid 1 mg tablet 1 tab PO DAILY 09/30/21 11/14/24 omeprazole 20 mg capsule,delayed 1 cap PO DAILY@0630 09/30/21 11/14/24 release thiamine HCl (vitamin B1) 100 mg 1 tab PO DAILY 09/30/21 11/14/24 tablet cholecalciferol (vitamin D3) 25 1 cap PO DAILY 06/04/22 11/14/24 mcg (1,000 unit) capsule (Vitamin D3) cetirizine 10 mg tablet 10 mg PO DAILY PRN allergies 04/10/24 11/14/24 acetaminophen 500 mg tablet 500 mg PO Q6H PRN fever 07/25/24 11/14/24 albuterol sulfate 90 mcg/actuation 2 puff inhalation Q4H PRN 07/25/24 11/14/24 aerosol inhaler shortness of breath or wheezing allopurinol 100 mg tablet 100 mg PO DAILY 07/25/24 11/14/24 Previous Rx's ?Medication ?Instructions ?Recorded ACL defiance brace #1 ea 07/29/21 magnesium oxide 400 mg (241.3 mg 400 mg PO BIDPC 30 days #60 tabs 10/02/21 magnesium) tablet carvedilol 6.25 mg tablet 6.25 mg PO BID #60 tabs 06/24/24 furosemide 40 mg tablet 40 mg PO DAILY #30 tabs 06/24/24 losartan 25 mg tablet 25 mg PO BID #60 tabs 06/24/24 spironolactone 25 mg tablet 12.5 mg (1/2 x 25 mg) PO QAM 90 08/02/24 days #45 tabs colchicine 0.6 mg capsule 0.6 mg PO BID 3 days #6 caps 08/07/24 methocarbamol 750 mg tablet 750 mg PO BID PRN pain #6 tabs 10/31/24 albuterol sulfate 2.5 mg/3 mL 2.5 mg (3 mL) inhalation Q4-6H PRN 11/11/24 (0.083 %) solution for nebulization shortness of breath or wheezing #90 mL fluticasone propionate 115 2 puff inhalation Q12H #12 grams 11/14/24 mcg-salmeterol 21 mcg/actuation HFA inhaler (Advair HFA) naproxen 500 mg tablet 500 mg PO BID 7 days #14 tabs 11/21/24 prednisone 20 mg tablet 20 mg PO DAILY 7 days #7 tabs 11/21/24 Allergies Allergy/AdvReac Type Severity Reaction Status Date / Time amoxicillin [AMOXICILLIN] Allergy Intermediate rash, Verified 12/06/24 09:20 rash/itching sulfamethoxazole Allergy Intermediate RASH Verified 11/20/24 23:14 [From BACTRIM] trimethoprim [From BACTRIM] Allergy Intermediate RASH Verified 11/20/24 23:14 hydrocodone [Hydrocodone] Allergy Mild ITCH Verified 11/20/24 23:14 ibuprofen [From Motrin] Allergy Mild UPSET Verified 11/20/24 23:14 STOMACH latex [Latex] Allergy Mild ITCH Verified 11/20/24 23:14 Review of Systems Review of Systems Constitutional : No Weight loss, No Fever, No Chills ENT/Mouth : No sore throat, No Rhinorrhea Eyes: No Swelling, No Redness Cardiovascular : No Chest Pain, No SOB, NoEdema Respiratory : pos Cough, No Sputum, No Wheezing Gastrointestinal : no Nausea, no Vomiting, no Diarrhea, positive abdominal Pain, No Hematochezia, No Melena Genitourinary : No Dysuria, No Urinary Frequency, No Hematuria, No Urgency Musculoskeletal : No joint pain, No Myalgias, No Joint Swelling Skin : No Skin Lesions, No rash Neuro : No Weakness, No Numbness, No Dizziness, No Headache All other systems reviewed and are negative. COUNT INCLUDES THE [facility] Past Medical History Attestation statement: The following information was validated with the patient. Source: old records reviewed Medical History Depression Anxiety and depression Lower back pain History of COVID-19 Uncontrolled hypertension Panic attack H/O ETOH abuse Anxiety History of low potassium Breast cancer Hypertension Surgical History History of carpal tunnel release Hx of tubal ligation History of breast lump/mass excision H/O: hysterectomy Family History Family History Mother Heart disease Alzheimers disease Social History Social History Household Members: None Housing: Apartment Housing Other:: 4th floor. No elevator Are you a primary acute care nurse practitioner to a significant other at home: No Do you presently have visiting nurse or other home services: Yes ([employer] twice daily) Alcohol intake: former Comment: 1:1 SI Patient Tobacco Use Status: Current someday Tobacco user Tobacco use type: Cigarette Cigarettes Per Day: 5 Years Smoked: 38YRS e-Cigarette/Vaping Use: Never Used Second Hand Smoke Exposure: Yes Advance Directives Date on File: 02/11/22 service: No Current occupational status: disabled Physical Exam ED Vital Signs: Vital Signs - 24 hr 12/06/24 09:12 12/06/24 11:35 12/06/24 13:04 Temperature 97.8 F 98.4 F Pulse Rate 100 99 Respiratory Rate 18 18 18 Blood Pressure 123/93 H 127/80 Pulse Oximetry 97 97 Oxygen Delivery Method Room Air Room Air BMI result Body Mass Index 31.0 Appearance: Alert. Oriented X3. No acute distress. Eyes: Pupils equal, round and reactive to light. ENT: Pharynx normal. Neck: Normal inspection. Neck supple. CVS: Normal heart rate and rhythm. Pulses normal. Respiratory: No respiratory distress. Breath sounds normal. Abdomen: Soft and ttp in R lower abdomen no mass or hernia felt. Skin: Skin warm and dry. Normal skin color. Normal skin turgor. Extremities: No lower extremity edema. No calf ttp Neuro: Oriented X 3. No motor deficit. No sensory deficit. CN2-12 intact Course Course Course Narrative: -1415--labs reviewed. Patient influenza A positive, known to patient. CT abdomen pelvis w IV con IMPRESSION: Fat-containing umbilical hernia. Diverticular disease, left hemicolon. Appendix is normal. No hydronephrosis. Small pericardial effusion. Fleischner guidelines were followed. Results discussed with patient including worrisome signs and symptoms and strict return precautions, and when to return to the emergency department. They verbalized understanding and feel safe for discharge at this time. Medical Decision Making Medical Decision Making MDM Narrative: 49 yo female with PMH of bronchitis, CHF with preserved EF, gout, anemia, alcohol use disorder, PTSD, HTN, anemia here with c/o R lower abdominal pain worse with coughing and moving no associated GI or symptoms no obvious hernia felt at this time will obtain labs, FLU is old, UA, CT scan for hernia, appendicitis (low susp), hematoma, mass. Differential Diagnosis Differential Diagnoses: The differential diagnosis associated with the presentation includes rectal sheath hematoma hernia appendicitis - low susp seems more MSK pain Admission/Observation Consideration of admission/observation: Escalation of care including admission/observation considered Lab Data [facility] Lab Attestation statement: I reviewed the patient's lab results. 12/06/24 09:42 12/06/24 09:42 Labs: Lab Results 12/06/24 12/06/24 Range/Units 09:42 11:14 WBC 7.6 (4.8-10.8) X10*3/uL RBC 3.84 L (4.20-5.50) X10*6/uL Hgb 11.3 L (12.0-16.0) g/dl Hct 34.0 L (37.0-47.0) % MCV 88.5 (80.0-98.0) fL MCH 29.4 (27.0-33.0) pg MCHC 33.2 (31.0-35.0) g/dl RDW 13.7 (11.0-16.0) % Plt Count 235 D (160-400) X10*3/uL MPV 10.3 (9.4-12.3) fL Immature Gran % (Auto) 0.3 (0.0-0.4) % Neut % (Auto) 53.6 (45-73) % Lymph % (Auto) 34.8 (20-40) % [place] % (Auto) 8.0 (2-11) % Eos % (Auto) 2.6 (0-4) % Baso % (Auto) 0.7 (0-2) % Lymph # (Auto) 2.7 (1.2-4.9) X10*3/uL [place] # (Auto) 0.6 (0.1-1.2) X10*3/uL Eos # (Auto) 0.2 (0.0-0.4) X10*3/uL Baso # (Auto) 0.1 (0.0-0.2) X10*3/uL Abs Immat Gran (auto) 0.02 (0.00-0.03) X10*3/uL Absolute Neuts (auto) 4.1 (2.0-8.3) x10*3/uL Absolute Nucleated RBC 0.000 (0.0-0.012) X10*3/uL Nucleated RBC % (auto) 0.0 (0.0-0.2) /100WBC Sodium 143 (135-145) mmol/L Potassium 4.2 (3.3-5.1) mmol/L Chloride 105 (96-108) mmol/L Carbon Dioxide 24 (22-29) mmol/L Anion Gap 18 (12-20) BUN 25 H (9-16) mg/dL Creatinine 0.88 (0.5-1.4) mg/dL Estim Creat Clear Calc 87.0 Estimated GFR > 60 Random Glucose 131 H (60-115) mg/dL Calcium 9.0 D (8.4-10.2) mg/dL Magnesium 1.6 (1.6-2.6) mg/dL Total Bilirubin 0.4 (0.0-1.0) mg/dL AST 15 (5-31) U/L ALT 12 (0-31) U/L Alkaline Phosphatase 83 (39-117) U/L Total Protein 6.9 (6.5-8.0) g/dL Albumin 3.9 (3.5-5.0) g/dL Lipase 50 (8-78) U/L Urine Color Yellow Urine Appearance Clear Urine pH 6.0 (5.0-9.0) Ur Specific [place] 1.025 (1.005-1.025) Urine Protein Negative (Neg-Trace) mg/dL Urine Glucose (UA) Negative (Negative) mg/dL Urine Ketones Negative (Negative) mg/dL Urine Blood Negative (Negative) Urine Nitrite Negative (Negative) Ur Leukocyte Esterase Negative (Negative) Influenza Type A (PCR) POSITIVE A (Negative) Influenza Type B (PCR) NEGATIVE (Negative) RSV RNA Qual (PCR) NEGATIVE (Negative) SARS-CoV-2 RNA (RT-PCR) NEGATIVE (Negative) Independent Interpretation I performed an independent interpretation of an: CT Scan Radiology Impression Discussion of test interpretation with radiology: I have reviewed the radiologist's reading. External Record Review External record reviewed: Outpatient record Medications Administered Discontinued Medications Generic Name Dose Route Start Last Admin Trade Name Freq PRN Reason Stop Dose Admin Iohexol 100 ml 12/06/24 13:31 12/06/24 13:32 Iohexol 350 Mg/Ml 100 Ml Infus..Btl IV 12/06/24 13:32 85 ml ONCE ONE Administration Morphine Sulfate 4 mg 12/06/24 11:18 12/06/24 11:35 Morphine Sulfate 4 Mg/Ml Cartridge IVPUSH 12/06/24 11:19 4 mg ONCE ONE Administration Protocol Ondansetron HCl 4 mg 12/06/24 11:18 12/06/24 11:34 Ondansetron Hcl 4 Mg/2 Ml Vial IVPUSH 12/06/24 11:19 4 mg ONCE ONE Administration Discharge Plan Discharge Clinical Impression: Abdominal pain Qualifiers: Abdominal location: right lower quadrant Qualified Code(s): R10.31 - Right lower quadrant pain Abdominal wall strain Qualifiers: Encounter type: initial encounter Qualified Code(s): S39.011A - Strain of muscle, fascia and tendon of abdomen, initial encounter Patient Disposition: Still a Patient Instructions: Muscle Strain (ED), Abdominal Pain (ED) Additional Instructions: labs reassuring, urine normal CT scan shows return for worsening symptoms, unable to eat or drink, fevers or any other concerns. Prescriptions: No Action (DME) ACL defiance brace See Rx Instructions .ROUTE .MEDSUPPLY Qty: 1 0RF Rx Instructions: n/a spironolactone 25 mg tablet 12.5 mg PO QAM 90 Days Qty: 45 3RF albuterol sulfate 2.5 mg /3 mL (0.083 %) solution for nebulization 2.5 mg inhalation Q4-6H PRN (Reason: shortness of breath or wheezing) Qty: 90 1RF thiamine HCl (vitamin B1) 100 mg tablet 1 tab PO DAILY omeprazole 20 mg capsule,delayed release(DR/EC) 1 cap PO DAILY@0630 folic acid 1 mg tablet 1 tab PO DAILY magnesium oxide 400 mg (241.3 mg magnesium) Tablet 400 mg PO BIDPC 30 Days Qty: 60 0RF cholecalciferol (vitamin D3) [Vitamin D3] 25 mcg (1,000 unit) capsule 1 cap PO DAILY furosemide 40 mg Tablet 40 mg PO DAILY Qty: 30 0RF Protocol: Hold for SBP< HOLD for SBP < : 90 carvedilol 6.25 mg Tablet 6.25 mg PO BID Qty: 60 0RF Protocol: Hold for SBP/HR < HOLD for SBP < : 90 HOLD for HR < : 60 losartan 25 mg Tablet 25 mg PO BID Qty: 60 0RF Protocol: Hold for SBP< HOLD for SBP < : 90 methocarbamol 750 mg tablet 750 mg PO BID PRN (Reason: pain) Qty: 6 0RF cetirizine 10 mg tablet 10 mg PO DAILY PRN (Reason: allergies) acetaminophen 500 mg tablet 500 mg PO Q6H PRN (Reason: fever) allopurinol 100 mg tablet 100 mg PO DAILY albuterol sulfate 90 mcg/actuation HFA aerosol inhaler 2 puff inhalation Q4H PRN (Reason: shortness of breath or wheezing) colchicine 0.6 mg capsule 0.6 mg PO BID 3 Days Qty: 6 0RF prednisone 20 mg tablet 20 mg PO DAILY 7 Days Qty: 7 0RF naproxen 500 mg tablet 500 mg PO BID 7 Days Qty: 14 0RF fluticasone propion-salmeterol [Advair HFA] 115-21 mcg/actuation HFA aerosol inhaler 2 puff inhalation Q12H Qty: 12 3RF Print Language: Italian
[2024-12-06 13:04] VITALS: BP 127/80; PULSE 99; RESP 18; TEMP 36.9; O2SAT 97
[2024-12-06] MEDS: iohexoL 350 MG/ML 100 ML INFUS..BTL IV (13:32)
[2024-12-06 14:43] VITALS: BP 127/80; PULSE 99; RESP 18; TEMP 36.9; O2SAT 97
== END 2024-12-06 14:45 | disposition home or self-care (01) ==
PROVIDERS: Emergency Provider Emergency Medicine; PCP Family Medicine
DX: S39.011A Strain of muscle, fascia and tendon of abdomen, initial encounter (principal); R10.2 Pelvic and perineal pain; R05.9 Cough, unspecified; R10.31 Right lower quadrant pain; F17.210 Nicotine dependence, cigarettes, uncomplicated; X58.XXXA Exposure to other specified factors, initial encounter; Y93.9 Activity, unspecified; Y92.9 Unspecified place or not applicable; Y99.8 Other external cause status; Z03.818 Encounter for observation for suspected exposure to other biological agents ruled out; Z79.899 Other long term (current) drug therapy
CPT/HCPCS: 0241U; 36415; 74177; 80053; 81003; 83690; 83735; 85025; 96374; 96375; 99284; J2270; J2405; Q9967

== ENCOUNTER → 2024-12-06 11:18 | Outpatient (BNV) | payer MEDICAID, SELFPAY | PROVIDERS: Emergency Provider Emergency Medicine; PCP Family Medicine; Visit Provider Radiology Diagnostic Radiology | DX: R10.9 Unspecified abdominal pain (principal) | CPT/HCPCS: 74177 ==

== ENCOUNTER 2024-12-10 23:01 | Emergency (ER) | payer MEDICAID, SELFPAY ==
--- NOTE | ~2024-12-10 | XR_ITS ---
CLINICAL HISTORY: chest pain cough 1 view chest x-ray Comparison: CR/OH - XR CHEST 2V - 10/31/24 17:50 EST Findings: No consolidation or effusion. Heart size is normal. No acute fracture. Right breast implant. IMPRESSION: 1. No acute cardiopulmonary findings. This document has been electronically signed by: Ashley Vazquez MD on 12/11/2024 00:34:57
[2024-12-10 23:27] VITALS: BP 117/73; PULSE 110; RESP 24; TEMP 36.6; O2SAT 99; BMI 31.3
--- NOTE | 2024-12-10 23:37 | ECG_ITS ---
Test Reason : SOB Blood Pressure : */* mmHG Vent. Rate : 107 BPM Atrial Rate : 107 BPM P-R Int : 188 ms QRS Dur : 72 ms QT Int : 364 ms P-R-T Axes : 96 -2 54 degrees QTcB Int : 485 ms Sinus tachycardia Inferior infarct (cited on or before 31-Oct-2024) Abnormal ECG When compared with ECG of 31-Oct-2024 16:58, No significant change was found Referred By: Generic ED Physician Electronically Signed By: Jameson Jeffries
[2024-12-10 23:55] LABS: MANUAL DIFF FLAG NO
[2024-12-10 23:57] LABS: Basophils Absolute Auto 0.1 X10*3/uL (0.0-0.2); Basophils Percent Auto 0.9 % (0-2); Eosinophils Absolute Auto 0.3 X10*3/uL (0.0-0.4); Eosinophils Percent Auto 2.7 % (0-4); Hematocrit 33.6 % (37.0-47.0); Imm Gran Abs Auto 0.06 X10*3/uL (0.00-0.03); Imm Gran Pct Auto 0.6 % (0.0-0.4); Lymphocytes Absolute Auto 3.1 X10*3/uL (1.2-4.9); Lymphocytes Percent Auto 31.7 % (20-40); Mean Corpuscular HGB Conc 32.7 g/dl (31.0-35.0); Mean Corpuscular Hemoglobin 29.3 pg (27.0-33.0); Mean Corpuscular Volume 89.6 fL (80.0-98.0); Mean Platelet Volume 10.5 fL (9.4-12.3); Monocytes Absolute Auto 0.9 X10*3/uL (0.1-1.2); Monocytes Percent Auto 8.7 % (2-11); Neutrophils Absolute Auto 5.4 x10*3/uL (2.0-8.3); Neutrophils Percent Auto 55.4 % (45-73); Platelet Count 304 X10*3/uL (160-400); Red Blood Count 3.75 X10*6/uL (4.20-5.50); Red Cell Distribution Width 13.7 % (11.0-16.0); White Blood Count 9.8 X10*3/uL (4.8-10.8)
--- NOTE | 2024-12-11 00:14 | PC.NURSE ---
this rn assumed care of pt from waiting room @ 0015. pt ambulatory at this time
[2024-12-11 00:17] LABS: Alanine Aminotransferase 14 U/L (0-31); Alkaline Phosphatase 87 U/L (39-117); Anion Gap 16 (12-20); Aspartate Amino Transferase 19 U/L (5-31); Bilirubin Total 0.2 mg/dL (0.0-1.0); Blood Urea Nitrogen 24 mg/dL (9-16); Calcium 9.3 mg/dL (8.4-10.2); Carbon Dioxide 23 mmol/L (22-29); Chloride 108 mmol/L (96-108); Creatinine Clr Calc Pharmacy 69.3; Estimated Glomerular Filt Rate 52; Glucose Random 150 mg/dL (60-115); Potassium 3.7 mmol/L (3.3-5.1); Sodium 143 mmol/L (135-145); Total Protein 7.6 g/dL (6.5-8.0)
[2024-12-11 00:18] LABS: B Type Natriuretic Peptide 14 pg/mL (<100)
[2024-12-11 00:33] LABS: Influenza A PCR NEGATIVE (Negative); Influenza B PCR NEGATIVE (Negative); Resp Syncy Virus RNA Qual PCR NEGATIVE (Negative); SARS COV2 PCR INHOUSE NEGATIVE (Negative)
--- NOTE | 2024-12-11 00:44 | ED.GENADULT ---
HPI - General Adult General Chief complaint: General Medical Stated complaint: Water retention Time Seen by Provider: 12/11/24 00:25 Source: patient Mode of arrival: ambulatory Limitations: no limitations History of Present Illness ED Provider: Dr. Sury Bustamante HPI narrative: patient comes to the emergency room complaining of shortness of breath, cough. patient denies any chest pain or abdominal pain. Patient was diagnosed with influenza 4 days ago. Patient denies any chest pain. Patient denies fever or chills. Patient denies nausea vomiting or diarrhea. Related Data Home Medications ?Medication ?Instructions ?Recorded ?Confirmed folic acid 1 mg tablet 1 tab PO DAILY 09/30/21 11/14/24 omeprazole 20 mg capsule,delayed 1 cap PO DAILY@0630 09/30/21 11/14/24 release thiamine HCl (vitamin B1) 100 mg 1 tab PO DAILY 09/30/21 11/14/24 tablet cholecalciferol (vitamin D3) 25 1 cap PO DAILY 06/04/22 11/14/24 mcg (1,000 unit) capsule (Vitamin D3) cetirizine 10 mg tablet 10 mg PO DAILY PRN allergies 04/10/24 11/14/24 acetaminophen 500 mg tablet 500 mg PO Q6H PRN fever 07/25/24 11/14/24 albuterol sulfate 90 mcg/actuation 2 puff inhalation Q4H PRN 07/25/24 11/14/24 aerosol inhaler shortness of breath or wheezing allopurinol 100 mg tablet 100 mg PO DAILY 07/25/24 11/14/24 Previous Rx's ?Medication ?Instructions ?Recorded ACL defiance brace #1 ea 07/29/21 magnesium oxide 400 mg (241.3 mg 400 mg PO BIDPC 30 days #60 tabs 10/02/21 magnesium) tablet carvedilol 6.25 mg tablet 6.25 mg PO BID #60 tabs 06/24/24 furosemide 40 mg tablet 40 mg PO DAILY #30 tabs 06/24/24 losartan 25 mg tablet 25 mg PO BID #60 tabs 06/24/24 spironolactone 25 mg tablet 12.5 mg (1/2 x 25 mg) PO QAM 90 08/02/24 days #45 tabs colchicine 0.6 mg capsule 0.6 mg PO BID 3 days #6 caps 08/07/24 methocarbamol 750 mg tablet 750 mg PO BID PRN pain #6 tabs 10/31/24 albuterol sulfate 2.5 mg/3 mL 2.5 mg (3 mL) inhalation Q4-6H PRN 11/11/24 (0.083 %) solution for nebulization shortness of breath or wheezing #90 mL fluticasone propionate 115 2 puff inhalation Q12H #12 grams 11/14/24 mcg-salmeterol 21 mcg/actuation HFA inhaler (Advair HFA) naproxen 500 mg tablet 500 mg PO BID 7 days #14 tabs 11/21/24 prednisone 20 mg tablet 20 mg PO DAILY 7 days #7 tabs 11/21/24 acetaminophen 500 mg tablet 500 mg PO Q6H PRN fever or pain 12/06/24 (Tylenol Extra Strength) #14 tabs cyclobenzaprine 5 mg tablet 5 mg PO Q8H PRN pain (scale score 12/06/24 7-10) 5 days #14 tabs Allergies Allergy/AdvReac Type Severity Reaction Status Date / Time amoxicillin [AMOXICILLIN] Allergy Intermediate rash, Verified 12/10/24 23:28 rash/itching sulfamethoxazole Allergy Intermediate RASH Verified 12/10/24 23:28 [From BACTRIM] trimethoprim [From BACTRIM] Allergy Intermediate RASH Verified 12/10/24 23:28 hydrocodone [Hydrocodone] Allergy Mild ITCH Verified 12/10/24 23:28 ibuprofen [From Motrin] Allergy Mild UPSET Verified 12/10/24 23:28 STOMACH latex [Latex] Allergy Mild ITCH Verified 12/10/24 23:28 Review of Systems Review of Systems: Constitutional : No Weight loss, No Fever, No Chills, No Night Sweats, No Fatigue, No Malaise ENT/Mouth : No Hearing loss, No Ear Pain, No Nasal Congestion, No Sinus Pain, No Hoarseness, No sore throat, No Rhinorrhea, No Swallowing Difficulty Eyes: No Eye Pain, No Swelling, No Redness, No Foreign Body, No Discharge, No Vision Changes Cardiovascular : No Chest Pain, Patient complaining of shortness of breath, No Dyspnea on Exertion, Complaining of chronic and at baseline Orthopnea, No Edema, No Palpitations Respiratory : No Cough, No Sputum, No Wheezing, No Smoke Exposure, No Dyspnea Gastrointestinal : No Nausea, No Vomiting, No Diarrhea, No Constipation, No abdominal Pain, No Hematochezia, No Melena Genitourinary : no irregular bleeding, No Dysuria, No Urinary Frequency, No Hematuria, No Urinary Incontinence, No Urgency, No Flank Pain, No Urinary Flow Changes, No Hesitancy Musculoskeletal : No joint pain, No Myalgias, No Joint Swelling Skin : No Skin Lesions, No rash Neuro : No Weakness, No Numbness, No Paresthesias, No Loss of Consciousness, No Dizziness, No Headache Psych : No Anxiety/Panic, No Depression, No SI/HI/AH/VH, No Social Issues, Heme/Lymph: No Bruising, No Bleeding,No Lymphadenopathy Endocrine : No Polyuria, No Polydipsia, No Temperature Intolerance [facility] Past Medical History Medical History Depression Anxiety and depression Lower back pain History of COVID-19 Uncontrolled hypertension Panic attack H/O ETOH abuse Anxiety History of low potassium Breast cancer Hypertension Surgical History History of carpal tunnel release Hx of tubal ligation History of breast lump/mass excision H/O: hysterectomy Family History Family History Mother Heart disease Alzheimers disease Social History Social History Household Members: None Housing: Apartment Housing Other:: 4th floor. No elevator Are you a primary wound care physician to a significant other at home: No Do you presently have visiting nurse or other home services: Yes ([employer]ument [employer]er twice daily) Alcohol intake: former Comment: 1:1 SI Patient Tobacco Use Status: Current someday Tobacco user Tobacco use type: Cigarette Cigarettes Per Day: 5 Years Smoked: 38YRS e-Cigarette/Vaping Use: Never Used Second Hand Smoke Exposure: Yes Advance Directives: No Advance Directives Information Provided: Yes Advance Directives Date on File: 02/11/22 Do you have a plan to hurt others: No Plan service: No Current occupational status: disabled Physical Exam ED Vital Signs: Vital Signs - 24 hr 12/10/24 23:27 Temperature 97.9 F Pulse Rate 110 H Respiratory Rate 24 H Blood Pressure 117/73 Pulse Oximetry 99 Oxygen Delivery Method Room Air BMI result Body Mass Index 31.3 Const Other: Appearance: Alert. Oriented X3. No acute distress. well-appear Eyes: Pupils equal, round and reactive to light. ENT: Pharynx normal. Neck: Normal inspection. Neck supple. No lymph nodes noted. No crepitus CVS: Normal heart rate and rhythm. Pulses normal. Normal S1 and S2. Bedside ultrasound shows a small pericardial effusion, 5 to 7 mm of fluid around the apex Respiratory: No respiratory distress. Breath sounds normal. No Wheezing. No rales Abdomen: Soft and nontender. No rigidity. No distention. Skin: Skin warm and dry. Normal skin color. Normal skin turgor. Extremities: No lower extremity edema. No Lacerations. No Rash Neuro: Oriented X 3. No motor deficit. No sensory deficit. Moving all extremities. No slurred speech. CN 2 through 12 grossly intact Psych: calm, cooperative, normal affect Medical Decision Making Medical Decision Making [facility] [place] Narrative: my interpretation of EKG: Sinus tachycardia, heart rate 107, no ST segment depression or elevation, no T-wave inversion, QTC 485 Chest x-ray does not show any acute abnormalities. my interpretation of labs: Normal hematology, normal chemistry, normal troponin and BNP, serology negative for influenza and COVID patient's oxygen saturation 100% on room air. Ambulating 98-99%. I reviewed patient's past medical records, patient has had pericardial effusion for several years. The last time that the patient was here with abdominal pain, the CT scan showed a small pericardial effusion. 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 12/10/24 23:48 12/10/24 23:48 Labs: Lab Results 12/10/24 Range/Units 23:48 WBC 9.8 (4.8-10.8) X10*3/uL RBC 3.75 L (4.20-5.50) X10*6/uL Hgb 11.0 L (12.0-16.0) g/dl Hct 33.6 L (37.0-47.0) % MCV 89.6 (80.0-98.0) fL MCH 29.3 (27.0-33.0) pg MCHC 32.7 (31.0-35.0) g/dl RDW 13.7 (11.0-16.0) % Plt Count 304 D (160-400) X10*3/uL MPV 10.5 (9.4-12.3) fL Immature Gran % (Auto) 0.6 H (0.0-0.4) % Neut % (Auto) 55.4 (45-73) % Lymph % (Auto) 31.7 (20-40) % [place] % (Auto) 8.7 (2-11) % Eos % (Auto) 2.7 (0-4) % Baso % (Auto) 0.9 (0-2) % Lymph # (Auto) 3.1 (1.2-4.9) X10*3/uL [place] # (Auto) 0.9 (0.1-1.2) X10*3/uL Eos # (Auto) 0.3 (0.0-0.4) X10*3/uL Baso # (Auto) 0.1 (0.0-0.2) X10*3/uL Abs Immat Gran (auto) 0.06 H (0.00-0.03) X10*3/uL Absolute Neuts (auto) 5.4 (2.0-8.3) x10*3/uL Absolute Nucleated RBC 0.000 (0.0-0.012) X10*3/uL Nucleated RBC % (auto) 0.0 (0.0-0.2) /100WBC Sodium 143 (135-145) mmol/L Potassium 3.7 (3.3-5.1) mmol/L Chloride 108 (96-108) mmol/L Carbon Dioxide 23 (22-29) mmol/L Anion Gap 16 (12-20) BUN 24 H (9-16) mg/dL Creatinine 1.11 (0.5-1.4) mg/dL Estim Creat Clear Calc 69.3 Estimated GFR 52 Random Glucose 150 H (60-115) mg/dL Calcium 9.3 (8.4-10.2) mg/dL Total Bilirubin 0.2 (0.0-1.0) mg/dL AST 19 (5-31) U/L ALT 14 (0-31) U/L Alkaline Phosphatase 87 (39-117) U/L Troponin I High Sens 8.0 (<3.5-17.0) ng/L B-Natriuretic Peptide 14 (<100) pg/mL Total Protein 7.6 (6.5-8.0) g/dL Albumin 4.0 (3.5-5.0) g/dL Influenza Type A (PCR) NEGATIVE (Negative) Influenza Type B (PCR) NEGATIVE (Negative) RSV RNA Qual (PCR) NEGATIVE (Negative) SARS-CoV-2 RNA (RT-PCR) NEGATIVE (Negative) Independent Interpretation I performed an independent interpretation of an: EKG and Plain X-Ray Radiology Impression Discussion of test interpretation with radiology: I have reviewed the radiologist's reading. Radiologist Impression: No consolidation or effusion. Heart size is normal. No acute fracture. Right breast implant. IMPRESSION: 1. No acute cardiopulmonary findings Discharge Plan Discharge Clinical Impression: Acute dyspnea Patient Disposition: Home, Self-Care Instructions: Dyspnea (ED) Additional Instructions: Please follow-up with your primary care physician tomorrow. If you have any worsening or new symptoms, please return to the emergency room or call 911 Prescriptions: No Action (DME) ACL defiance brace See Rx Instructions .ROUTE .MEDSUPPLY Qty: 1 0RF Rx Instructions: n/a spironolactone 25 mg tablet 12.5 mg PO QAM 90 Days Qty: 45 3RF albuterol sulfate 2.5 mg /3 mL (0.083 %) solution for nebulization 2.5 mg inhalation Q4-6H PRN (Reason: shortness of breath or wheezing) Qty: 90 1RF thiamine HCl (vitamin B1) 100 mg tablet 1 tab PO DAILY omeprazole 20 mg capsule,delayed release(DR/EC) 1 cap PO DAILY@0630 folic acid 1 mg tablet 1 tab PO DAILY magnesium oxide 400 mg (241.3 mg magnesium) Tablet 400 mg PO BIDPC 30 Days Qty: 60 0RF cholecalciferol (vitamin D3) [Vitamin D3] 25 mcg (1,000 unit) capsule 1 cap PO DAILY furosemide 40 mg Tablet 40 mg PO DAILY Qty: 30 0RF Protocol: Hold for SBP< HOLD for SBP < : 90 carvedilol 6.25 mg Tablet 6.25 mg PO BID Qty: 60 0RF Protocol: Hold for SBP/HR < HOLD for SBP < : 90 HOLD for HR < : 60 losartan 25 mg Tablet 25 mg PO BID Qty: 60 0RF Protocol: Hold for SBP< HOLD for SBP < : 90 methocarbamol 750 mg tablet 750 mg PO BID PRN (Reason: pain) Qty: 6 0RF cetirizine 10 mg tablet 10 mg PO DAILY PRN (Reason: allergies) acetaminophen 500 mg tablet 500 mg PO Q6H PRN (Reason: fever) allopurinol 100 mg tablet 100 mg PO DAILY albuterol sulfate 90 mcg/actuation HFA aerosol inhaler 2 puff inhalation Q4H PRN (Reason: shortness of breath or wheezing) colchicine 0.6 mg capsule 0.6 mg PO BID 3 Days Qty: 6 0RF prednisone 20 mg tablet 20 mg PO DAILY 7 Days Qty: 7 0RF naproxen 500 mg tablet 500 mg PO BID 7 Days Qty: 14 0RF acetaminophen [Tylenol Extra Strength] 500 mg tablet 500 mg PO Q6H PRN (Reason: fever or pain) Qty: 14 0RF cyclobenzaprine 5 mg tablet 5 mg PO Q8H PRN (Reason: pain (scale score 7-10)) 5 Days Qty: 14 0RF fluticasone propion-salmeterol [Advair HFA] 115-21 mcg/actuation HFA aerosol inhaler 2 puff inhalation Q12H Qty: 12 3RF Print Language: Portuguese
[2024-12-11 01:17] VITALS: BP 116/79; PULSE 108; RESP 14; TEMP 37.1; O2SAT 97
[2024-12-11 01:21] VITALS: BP 116/79; PULSE 108; RESP 14; TEMP 37.1; O2SAT 97
== END 2024-12-11 01:22 | disposition home or self-care (01) ==
PROVIDERS: Emergency Provider Emergency Medicine; PCP Family Medicine
DX: R06.00 Dyspnea, unspecified (principal); R06.02 Shortness of breath; R05.9 Cough, unspecified; R00.0 Tachycardia, unspecified; Z03.818 Encounter for observation for suspected exposure to other biological agents ruled out
CPT/HCPCS: 0241U; 36415; 71045; 80053; 83880; 84484; 85025; 93005; 99283; 99284

== ENCOUNTER → 2024-12-10 23:37 | Outpatient (BNV) | payer MEDICAID, SELFPAY | PROVIDERS: Emergency Provider Emergency Medicine; PCP Family Medicine; Visit Provider Internal Medicine Cardiovascular Disease | DX: I25.2 Old myocardial infarction (principal); R00.0 Tachycardia, unspecified | CPT/HCPCS: 93010 ==

== ENCOUNTER → 2024-12-10 23:38 | Outpatient (BNV) | payer MEDICAID, SELFPAY | PROVIDERS: Emergency Provider Emergency Medicine; PCP Family Medicine; Visit Provider Radiology Diagnostic Radiology | DX: R07.9 Chest pain, unspecified (principal); R05.9 Cough, unspecified | CPT/HCPCS: 71045 ==

== ENCOUNTER 2024-12-20 06:32 | Emergency (ER) | payer MEDICAID, SELFPAY ==
--- NOTE | ~2024-12-20 | XR_ITS ---
EXAMINATION: XR KNEE, RIGHT CLINICAL INFORMATION: painful swollen COMPARISON: 07/24/2024, 08/24/2023. TECHNIQUE: Two views of the right knee. FINDINGS: No fracture, dislocation, or suspicious bone lesion. Normal alignment. There has been prior ACL repair. Moderate tricompartmental joint space narrowing with extensive marginal productive osteophytic changes. Large suprapatellar joint effusion present with probable calcified loose bodies. Soft tissues otherwise normal. XR/XR knee RT 2V IMPRESSION: 1. Moderate tricompartmental osteoarthrosis. 2. Suprapatellar joint effusion with probable calcified loose bodies. Electronically signed by: Akbar Galicia MD 12/20/2024 08:17 AM EST
[2024-12-20 06:38] VITALS: BP 132/102; PULSE 138; O2SAT 98
[2024-12-20 06:41] VITALS: BP 144/97; PULSE 132; RESP 20; TEMP 36.9; O2SAT 99; BMI 32.5
--- NOTE | 2024-12-20 07:14 | ED.EXTPRO ---
HPI - Extremity Problem General Chief complaint: Extremity Problem Stated complaint: RT KNEE PAIN Time Seen by Provider: 12/20/24 07:14 Source: patient Mode of arrival: wheelchair Limitations: no limitations History of Present Illness ED Provider: Chi Whalen PA-C HPI Narrative: 49 yo female with history of HFpEF, cardiomyopathy, OA and effusion of right knee with chronic , gout, HTN, carpal tunnel syndrome, who presetns to the ER for evaluation of worsening right knee pain and swelling that she noted when she woke up this morning. She reports chronic, bilateral knee pain at baseline and her right knee has been hurting more than usual the last few days. She figured it was from her arthritis. Today pain was much worse with weight bearing and flexion with worsening swelling so she came to the ER for evaluation. She had to call 911 because she could not get down the 3 flights of stairs in her apt building. MD Complaint: joint swelling and joint pain Onset (ago): day(s) Pain Consistency: constant Location: left and knee Severity scale (1-10): >10 Quality: aching, sharp and constant Radiation: none Relieving factors: immobilization Exacerbating factors: range of motion, weight bearing and palpation Associated symptoms: denies other symptoms Related Data Home Medications ?Medication ?Instructions ?Recorded ?Confirmed folic acid 1 mg tablet 1 tab PO DAILY 09/30/21 11/14/24 omeprazole 20 mg capsule,delayed 1 cap PO DAILY@0630 09/30/21 11/14/24 release thiamine HCl (vitamin B1) 100 mg 1 tab PO DAILY 09/30/21 11/14/24 tablet cholecalciferol (vitamin D3) 25 1 cap PO DAILY 06/04/22 11/14/24 mcg (1,000 unit) capsule (Vitamin D3) cetirizine 10 mg tablet 10 mg PO DAILY PRN allergies 04/10/24 11/14/24 acetaminophen 500 mg tablet 500 mg PO Q6H PRN fever 07/25/24 11/14/24 albuterol sulfate 90 mcg/actuation 2 puff inhalation Q4H PRN 07/25/24 11/14/24 aerosol inhaler shortness of breath or wheezing allopurinol 100 mg tablet 100 mg PO DAILY 07/25/24 11/14/24 Previous Rx's ?Medication ?Instructions ?Recorded ACL defiance brace #1 ea 07/29/21 magnesium oxide 400 mg (241.3 mg 400 mg PO BIDPC 30 days #60 tabs 10/02/21 magnesium) tablet carvedilol 6.25 mg tablet 6.25 mg PO BID #60 tabs 06/24/24 furosemide 40 mg tablet 40 mg PO DAILY #30 tabs 06/24/24 losartan 25 mg tablet 25 mg PO BID #60 tabs 06/24/24 spironolactone 25 mg tablet 12.5 mg (1/2 x 25 mg) PO QAM 90 08/02/24 days #45 tabs colchicine 0.6 mg capsule 0.6 mg PO BID 3 days #6 caps 08/07/24 methocarbamol 750 mg tablet 750 mg PO BID PRN pain #6 tabs 10/31/24 albuterol sulfate 2.5 mg/3 mL 2.5 mg (3 mL) inhalation Q4-6H PRN 11/11/24 (0.083 %) solution for nebulization shortness of breath or wheezing #90 mL fluticasone propionate 115 2 puff inhalation Q12H #12 grams 11/14/24 mcg-salmeterol 21 mcg/actuation HFA inhaler (Advair HFA) naproxen 500 mg tablet 500 mg PO BID 7 days #14 tabs 11/21/24 prednisone 20 mg tablet 20 mg PO DAILY 7 days #7 tabs 11/21/24 acetaminophen 500 mg tablet 500 mg PO Q6H PRN fever or pain 12/06/24 (Tylenol Extra Strength) #14 tabs cyclobenzaprine 5 mg tablet 5 mg PO Q8H PRN pain (scale score 12/06/24 7-10) 5 days #14 tabs oxycodone 5 mg tablet 5 mg PO BID PRN severe pain (scale 12/20/24 score 7-10) #6 tabs prednisone 10 mg tablets in a dose See Taper PO DAILY #30 ea 12/20/24 pack Allergies Allergy/AdvReac Type Severity Reaction Status Date / Time amoxicillin [AMOXICILLIN] Allergy Intermediate rash, Verified 12/20/24 06:45 rash/itching sulfamethoxazole Allergy Intermediate RASH Verified 12/20/24 06:45 [From BACTRIM] trimethoprim [From BACTRIM] Allergy Intermediate RASH Verified 12/20/24 06:45 hydrocodone [Hydrocodone] Allergy Mild ITCH Verified 12/20/24 06:45 ibuprofen [From Motrin] Allergy Mild UPSET Verified 12/20/24 06:45 STOMACH latex [Latex] Allergy Mild ITCH Verified 12/20/24 06:45 Review of Systems Review of Systems: Yes all other systems are reviewed and are negative [facility] Past Medical History Medical History Depression Anxiety and depression Lower back pain History of COVID-19 Uncontrolled hypertension Panic attack H/O ETOH abuse Anxiety History of low potassium Breast cancer Hypertension Surgical History History of carpal tunnel release Hx of tubal ligation History of breast lump/mass excision H/O: hysterectomy Family History Family History Mother Heart disease Alzheimers disease Social History Social History Household Members: None Housing: Apartment Housing Other:: 4th floor. No elevator Are you a primary childcare provider to a significant other at home: No Do you presently have visiting nurse or other home services: Yes ([employer] Education Coordinator twice daily) Alcohol intake: former Comment: 1:1 SI Patient Tobacco Use Status: Current someday Tobacco user Tobacco use type: Cigarette Cigarettes Per Day: 5 Years Smoked: 38YRS e-Cigarette/Vaping Use: Never Used Second Hand Smoke Exposure: Yes Advance Directives: Yes Advance Directives on File: Yes Advance Directives Date on File: 02/11/22 service: No Current occupational status: disabled Physical Exam Vital Signs: Vital Signs: Last Vital Signs Temp 98.5 F 12/20/24 06:41 Pulse 127 H 12/20/24 09:11 Resp 18 12/20/24 09:11 BP 120/79 12/20/24 09:11 Pulse Ox 97 12/20/24 09:11 O2 Del Method Room Air 12/20/24 09:11 BMI result Body Mass Index 32.5 Appearance: Alert. Oriented X3. No acute distress. HEENT: normal inspection CVS: Normal heart rate and rhythm. Pulses normal. Respiratory: No respiratory distress. Skin: Skin warm and dry. Normal skin color. Normal skin turgor. No rashes. Extremities: left knee with moderate suprapatellar swelling, warmth without erythema. very tender to touch, limited ROM due to pain. NV intact distally. unable to assess for joint laxiety or varus/valgus stress Neuro: Oriented X 3. No motor deficit. No sensory deficit. Medications Administered Discontinued Medications Generic Name Dose Route Start Last Admin Trade Name Lynne PRN Reason Stop Dose Admin Acetaminophen 975 mg 12/20/24 07:41 12/20/24 07:53 Acetaminophen 325 Mg Tablet PO 12/20/24 07:42 975 mg ONCE ONE Administration Ketorolac Tromethamine 30 mg 12/20/24 07:41 12/20/24 07:54 Ketorolac Tromethamine 30 Mg/Ml Vial IM 12/20/24 07:42 30 mg ONCE ONE Administration Oxycodone HCl 5 mg 12/20/24 07:41 12/20/24 07:53 Oxycodone Hcl Immed Release 5 Mg Tablet PO 12/20/24 07:42 5 mg ONCE ONE Administration Oxycodone HCl 5 mg 12/20/24 08:45 12/20/24 09:02 Oxycodone Hcl Immed Release 5 Mg Tablet PO 12/20/24 08:46 5 mg ONCE ONE Administration Prednisone 50 mg 12/20/24 08:45 12/20/24 09:01 Prednisone 10 Mg Tablet PO 12/20/24 08:46 50 mg ONCE ONE Administration Medical Decision Making Medical Decision Making [facility] Narrative: 49 yo female with history of bilateral knee OA and history of gout in the knee in the past presenting with acute worsening of left knee pain and swelling, unable to bear weight. concern for gout. no erythema to suggest septic joint. no leukocytosis on labs which is reassuring against this. she has an elevated uric acid c/w gout. xr showing effusion and OA. IM toradol and oxycodone given with mild improvement. continued to c/o pain w/ HR 120s. additional oxycodone and prednisone given with improvement in her symptoms. molly wrap applied. given crutches comfortable w/ discharge home with pred taper - she will f/u with her ortho and rheum. Differential Diagnosis Differential Diagnoses: The differential diagnosis associated with the presentation includes gout, OA, inflammatory arthritis, septic arthritis, DVT/PE considered given tachycardia but no popliteal swelling/pain and no CP or SOB Admission/Observation Consideration of admission/observation: Escalation of care including admission/observation considered Lab Data [facility] Lab Attestation statement: I reviewed the patient's lab results. no elevated WBC, elevated uric acid 12/20/24 07:12 12/20/24 07:12 Labs: Lab Results 12/20/24 Range/Units 07:12 WBC 10.7 (4.8-10.8) X10*3/uL RBC 4.28 (4.20-5.50) X10*6/uL Hgb 12.6 (12.0-16.0) g/dl Hct 37.3 (37.0-47.0) % MCV 87.1 (80.0-98.0) fL MCH 29.4 (27.0-33.0) pg MCHC 33.8 (31.0-35.0) g/dl RDW 13.4 (11.0-16.0) % Plt Count 314 (160-400) X10*3/uL MPV 9.9 (9.4-12.3) fL Immature Gran % (Auto) 0.5 H (0.0-0.4) % Neut % (Auto) 74.9 H (45-73) % Lymph % (Auto) 16.6 L (20-40) % [place] % (Auto) 6.3 (2-11) % Eos % (Auto) 1.0 (0-4) % Baso % (Auto) 0.7 (0-2) % Lymph # (Auto) 1.8 (1.2-4.9) X10*3/uL [place] # (Auto) 0.7 (0.1-1.2) X10*3/uL Eos # (Auto) 0.1 (0.0-0.4) X10*3/uL Baso # (Auto) 0.1 (0.0-0.2) X10*3/uL Abs Immat Gran (auto) 0.05 H (0.00-0.03) X10*3/uL Absolute Neuts (auto) 8.0 (2.0-8.3) x10*3/uL Absolute Nucleated RBC 0.020 H (0.0-0.012) X10*3/uL Nucleated RBC % (auto) 0.2 (0.0-0.2) /100WBC Sodium 140 (135-145) mmol/L Potassium 3.7 (3.3-5.1) mmol/L Chloride 100 (96-108) mmol/L Carbon Dioxide 26 (22-29) mmol/L Anion Gap 18 (12-20) BUN 21 H (9-16) mg/dL Creatinine 1.22 (0.5-1.4) mg/dL Estim Creat Clear Calc 64.2 Estimated GFR 46 Random Glucose 167 H (60-115) mg/dL Uric Acid 8.3 H (2.4-5.7) mg/dL Calcium 9.4 (8.4-10.2) mg/dL Total Bilirubin 0.9 (0.0-1.0) mg/dL AST 26 (5-31) U/L ALT 18 (0-31) U/L Alkaline Phosphatase 134 H (39-117) U/L Total Protein 7.7 (6.5-8.0) g/dL Albumin 4.2 (3.5-5.0) g/dL Independent Interpretation I performed an independent interpretation of an: Plain X-Ray Interpretation: xr with mod-large effusion and arthritic changes, no acute fx apprecaited Radiology Impression Discussion of test interpretation with radiology: I have reviewed the radiologist's reading. Independent Historian Clinical information obtained from an independent historian. History obtained from or confirmed by: EMS External Record Review External record reviewed: Office record, Prior outpatient labs and Prior outpatient radiology Prescription Management I considered prescription management with: Pain Medication, Antibiotic and Other (steroids) Chronic Conditions Patient?s care impacted by: Other (chronic OA) Social Determinants Patient?s care significantly limited by Social Determinants of Health including: Problems related to primary support group and Other Social Determinant of Health Critical Care Time Critical Care Time Critical Care Time: No Discharge Plan Discharge Clinical Impression: Effusion of knee joint right Gout Qualifiers: Gout site: foot Gout etiology: idiopathic Chronicity: acute Laterality: left Qualified Code(s): M10.072 - Idiopathic gout, left ankle and foot Patient Disposition: Home, Self-Care Instructions: Gout (ED), Swollen Knee Joint (ED) Additional Instructions: your exam and labs are consistent with gout take the prescribed steroid taper - start it tomorrow, you were given oral and IV steroids today in the ER take the prescribed oxycodone as needed for severe pain only elevate and MOLLY wrap the knee recommend following up with Orthopedics as well as Rheumatology given your recurrent gout you can bear weight as tolerated, if pain is too severe use crutches until improved If you develop new or worsening symptoms call 911 or come back to the ER for further evaluation. XR/XR knee RT 2V IMPRESSION: 1. Moderate tricompartmental osteoarthrosis. 2. Suprapatellar joint effusion with probable calcified loose bodies. Prescriptions: New prednisone 10 mg tablets,dose pack See Taper PO DAILY Qty: 30 0RF Taper: Prednisone 40 mg daily for 3 Days and 0 Hour 30 mg daily for 3 Days and 0 Hour 20 mg daily for 3 Days and 0 Hour 10 mg daily for 3 Days and 0 Hour Rx Instructions: 40 mg Daily x3 days, 30 mg daily x3 days, 20 mg daily x3 days, 10 mg daily x3 days oxycodone 5 mg tablet 5 mg PO BID PRN (Reason: severe pain (scale score 7-10)) Qty: 6 0RF Rx Instructions: Partial Fill upon patient request. No Action (DME) ACL defiance brace See Rx Instructions .ROUTE .MEDSUPPLY Qty: 1 0RF Rx Instructions: n/a spironolactone 25 mg tablet 12.5 mg PO QAM 90 Days Qty: 45 3RF albuterol sulfate 2.5 mg /3 mL (0.083 %) solution for nebulization 2.5 mg inhalation Q4-6H PRN (Reason: shortness of breath or wheezing) Qty: 90 1RF thiamine HCl (vitamin B1) 100 mg tablet 1 tab PO DAILY omeprazole 20 mg capsule,delayed release(DR/EC) 1 cap PO DAILY@0630 folic acid 1 mg tablet 1 tab PO DAILY magnesium oxide 400 mg (241.3 mg magnesium) Tablet 400 mg PO BIDPC 30 Days Qty: 60 0RF cholecalciferol (vitamin D3) [Vitamin D3] 25 mcg (1,000 unit) capsule 1 cap PO DAILY furosemide 40 mg Tablet 40 mg PO DAILY Qty: 30 0RF Protocol: Hold for SBP< HOLD for SBP < : 90 carvedilol 6.25 mg Tablet 6.25 mg PO BID Qty: 60 0RF Protocol: Hold for SBP/HR < HOLD for SBP < : 90 HOLD for HR < : 60 losartan 25 mg Tablet 25 mg PO BID Qty: 60 0RF Protocol: Hold for SBP< HOLD for SBP < : 90 methocarbamol 750 mg tablet 750 mg PO BID PRN (Reason: pain) Qty: 6 0RF cetirizine 10 mg tablet 10 mg PO DAILY PRN (Reason: allergies) acetaminophen 500 mg tablet 500 mg PO Q6H PRN (Reason: fever) allopurinol 100 mg tablet 100 mg PO DAILY albuterol sulfate 90 mcg/actuation HFA aerosol inhaler 2 puff inhalation Q4H PRN (Reason: shortness of breath or wheezing) colchicine 0.6 mg capsule 0.6 mg PO BID 3 Days Qty: 6 0RF prednisone 20 mg tablet 20 mg PO DAILY 7 Days Qty: 7 0RF naproxen 500 mg tablet 500 mg PO BID 7 Days Qty: 14 0RF acetaminophen [Tylenol Extra Strength] 500 mg tablet 500 mg PO Q6H PRN (Reason: fever or pain) Qty: 14 0RF cyclobenzaprine 5 mg tablet 5 mg PO Q8H PRN (Reason: pain (scale score 7-10)) 5 Days Qty: 14 0RF fluticasone propion-salmeterol [Advair HFA] 115-21 mcg/actuation HFA aerosol inhaler 2 puff inhalation Q12H Qty: 12 3RF Referrals: [facility] Orthopedic Surgeons [Provider Group] [facility] Rheumatology Service [Provider Group] Shereen Latham MD [Primary Care Provider] - Print Language: Lebanese
--- OUTSIDE RECORDS SUMMARY | 2024-12-20 07:15 | XMS_ITS | Clinical Summary ---
Author Organization [employer] [facility] it Address [address] [place] [address] Care Team Providers Care Compounder Flavorings Name Role Phone Shereen Latham MD Primary Care Provider [phone] Social History Tobacco Use Types Packs/Day Years Used Date Smoking Tobacco: Never Assessed Comments Unknown Sex and Gender Information Value Date Recorded Sex Assigned at Not on file Legal Sex Female 9:51 AM EST Gender Identity Not on file Sexual Orientation [...] Vaccines Completed 06/29/1978 IPV Vaccines Completed 07/05/1981, 07/04/1980, 08/24/1978, Additional history exists Hepatitis B Vaccines Completed 08/10/2020, 09/01/2007, 07/16/2007 HIV Screening Completed 02/24/2024 Pneumococcal Vaccine: 50+ Years Completed 03/30/2024, 08/23/2008 Pneumococcal Vaccine: Pediatrics (0 to 5 Years) [...] patient's age to complete this topic Meningococcal B Vacine Aged Out No lo nger eligible based on patient's age to complete this topic RSV Immunization Patients Under 20 months Aged Out No longer eligible based on patient's age to complete this topic Varicella Vaccines Aged Out No longer eligible based on patient's age to complete this topic Care Teams Compounder Flavorings Relationship Specialty Start Date End Date Shereen Latham MD [address] [place] [id number] PCP - General 01/13/1996
[2024-12-20 07:19] LABS: MANUAL DIFF FLAG NO
[2024-12-20 07:21] LABS: Basophils Absolute Auto 0.1 X10*3/uL (0.0-0.2); Basophils Percent Auto 0.7 % (0-2); Eosinophils Absolute Auto 0.1 X10*3/uL (0.0-0.4); Hematocrit 37.3 % (37.0-47.0); Hemoglobin 12.6 g/dl (12.0-16.0); Imm Gran Abs Auto 0.05 X10*3/uL (0.00-0.03); Imm Gran Pct Auto 0.5 % (0.0-0.4); Lymphocytes Absolute Auto 1.8 X10*3/uL (1.2-4.9); Lymphocytes Percent Auto 16.6 % (20-40); Mean Corpuscular HGB Conc 33.8 g/dl (31.0-35.0); Mean Corpuscular Hemoglobin 29.4 pg (27.0-33.0); Mean Corpuscular Volume 87.1 fL (80.0-98.0); Mean Platelet Volume 9.9 fL (9.4-12.3); Monocytes Absolute Auto 0.7 X10*3/uL (0.1-1.2); Monocytes Percent Auto 6.3 % (2-11); NRBC Pct Auto 0.2 /100WBC (0.0-0.2); Neutrophils Percent Auto 74.9 % (45-73); Platelet Count 314 X10*3/uL (160-400); Red Blood Count 4.28 X10*6/uL (4.20-5.50); Red Cell Distribution Width 13.4 % (11.0-16.0); White Blood Count 10.7 X10*3/uL (4.8-10.8)
[2024-12-20 07:36] LABS: Alanine Aminotransferase 18 U/L (0-31); Albumin Level 4.2 g/dL (3.5-5.0); Alkaline Phosphatase 134 U/L (39-117); Anion Gap 18 (12-20); Aspartate Amino Transferase 26 U/L (5-31); Bilirubin Total 0.9 mg/dL (0.0-1.0); Blood Urea Nitrogen 21 mg/dL (9-16); Calcium 9.4 mg/dL (8.4-10.2); Carbon Dioxide 26 mmol/L (22-29); Chloride 100 mmol/L (96-108); Creatinine Clr Calc Pharmacy 64.2; Estimated Glomerular Filt Rate 46; Glucose Random 167 mg/dL (60-115); Potassium 3.7 mmol/L (3.3-5.1); Sodium 140 mmol/L (135-145); Total Protein 7.7 g/dL (6.5-8.0); Uric Acid 8.3 mg/dL (2.4-5.7)
[2024-12-20] MEDS: oxyCODONE HCl Immed Release 5 MG TABLET PO ×2 (07:53→09:02)
[2024-12-20] MEDS: Acetaminophen 325 MG TABLET 975 MG PO (07:53)
[2024-12-20] MEDS: Ketorolac Tromethamine 30 MG/ML VIAL IM (07:54)
[2024-12-20] MEDS: predniSONE 10 MG TABLET 50 MG PO (09:01)
[2024-12-20 09:11] VITALS: BP 120/79; PULSE 127; RESP 18; O2SAT 97
[2024-12-20 11:32] VITALS: BP 120/79; PULSE 115; RESP 18; TEMP 36.7; O2SAT 97
== END 2024-12-20 11:32 | disposition home or self-care (01) ==
PROVIDERS: Emergency Provider Emergency Medicine Emergency Medical Services; PCP Family Medicine
DX: M25.461 Effusion, right knee (principal); M10.072 Idiopathic gout, left ankle and foot; M25.561 Pain in right knee; I10 Essential (primary) hypertension; F17.210 Nicotine dependence, cigarettes, uncomplicated
CPT/HCPCS: 36415; 73560; 80053; 84550; 85025; 96372; 99283; 99284; J1885

== ENCOUNTER → 2024-12-20 07:45 | Outpatient (BNV) | payer MEDICAID, SELFPAY | PROVIDERS: Emergency Provider Emergency Medicine Emergency Medical Services; PCP Family Medicine; Visit Provider Radiology Diagnostic Radiology | DX: M17.5 Other unilateral secondary osteoarthritis of knee (principal) | CPT/HCPCS: 73560 ==

== ENCOUNTER 2024-12-29 10:51 | Outpatient (REF) | payer MEDICAID, SELFPAY ==
--- OUTSIDE RECORDS SUMMARY | 2024-12-29 12:54 | XMS_ITS | Encounter Summary ---
Author Organization [employer] Address [address] [facility] 7t [place] [address] Care Team Providers Care Software Quality Tester Name Role Phone Shereen Latham MD Primary Care Provider [phone] Nupur Bullock PharmD Unavailable Sury Benitez Unavailable [phone] Nirali Madrid OD Unavailable Li Grande MD Unavailable [phone] Anselmo Gates MD Unavailable Margaret Holman Unavailable Herberth Stokes MD Unavailable [phone] Encounter Details Date Type Department Care Team (Late st Contact Info) Description 10/11/2024 Telephone [facility] MEDICINE [address] [place], [place] [id number] Shereen Latham MD [address] [place], [place] [phone] Social History Tobacco Use Types Packs/Day Years [...] Care Team (Late st Contact Info) Description 01/17/2025 3:00 PM EDT Nutrition [facility] DIABETES/NUTRITION [address] [place] [address] [place] [address] 03/29/2025 2:00 PM EDT Office Visit [facility] ADULT DENTAL [address] [place] [address] Jenny Gordon [address] [place] [address] documented as of this encounter Visit Diagnoses Not on filedocumented in this encounter Additional Health Concerns Assessment Noted Time PHQ-9 Depression Total Score: 13 024 4:53 PM EDT documented as of this encounter Care Teams Software Quality Tester Relationship Specialty Start Date End Date Shereen Latham MD [address] [place] [address] PCP - General Family Medicine 11/02/18 Nupur Bullock, CharleneD [address] [place] [address] Pharmacist Internal Medicine 08/09/24 Sury Benitez [address] [place] [address] [address] Pulmonary Disease 09/27/24 Nirali Madrid OD [address] [place] [address] Optometry 10/27/24 Li Grande MD [address] [place] [address] Hematology and Oncology 10/27/24 Anselmo Gates MD [address] [place] [address] Orthopaedic Surgery 10/27/24 Margaret Holman [address] 3rd [place] [address] Cardiology 10/27/24 Herberth Stokes MD [address] [facility] 3rd [place] [address] Gastroenterology 10/27/24 Pily Delaney [employer]of [employer] Coal Miner[employer]olt Sorter 07/22/24 Elie Vicky [facility] 12/29/24 documented as of this encounter
--- OUTSIDE RECORDS SUMMARY | 2024-12-29 12:54 | XMS_ITS | Encounter Summary ---
Author Organization [employer] Address [address] [facility] 7t [place] [address] Care Team Providers Care Backup Sawyer Name Role Phone Shereen Latham MD Primary Care Provider Nupur Bullock PharmD Unavailable Sury Benitez Unavailable [phone] Nirali Madrid OD Unavailable Li Grande MD Unavailable [phone] Anselmo Gates MD Unavailable Margaret Holman Unavailable Herberth Stokes MD Unavailable [phone] Encounter Details Date Type Department Care [...] Info) Description 01/17/2025 3:00 PM EDT Nutrition [facility] DIABETES/NUTRITION [address] [place] [address] Ernestina Esteban, KATE [address] [place] [address] 03/29/2025 2:00 PM EDT Office Visit [facility] ADULT DENTAL [address] [place] [address] Jenny Gordon [address] [place] [address] documented as of this encounter Visit Diagnoses Not on filedocumented in this encounter Additional Health Concerns Assessment Noted Time PHQ-9 Depression Total Score: 13 024 4:53 PM EDT documented as of this encounter Care Teams Backup Sawyer Relationship Specialty Start Date End Date Shereen Latham MD [address] [place] [address] PCP - General Family Medicine 11/02/18 Nupur Bullock PharmD [address] [place] [address] Pharmacist Internal Medicine 08/09/24 Sury Benitez [address] [place] [address] Dr [facility] [address] [place] [address] Pulmonary Disease 09/27/24 Nirali Madrid OD [address] [place] [address] Optometry 10/27/24 Li Grande MD [address] [place] [address] Hematology and Oncology 10/27/24 Anselmo Gates MD [address] [place] [address] [address] [place] [address] Orthopaedic Surgery 10/27/24 Margaret Holman [address] [facility] 3rd [place] [address] Cardiology 10/27/24 Herberth Stokes MD [address] [facility] [address]rd [place] [address] Gastroenterology 10/27/24 Pily Delaney Furnace Char[employer] Mill Operator 07/22/24 documented as of this encounter
--- OUTSIDE RECORDS SUMMARY | 2024-12-29 12:54 | XMS_ITS | Encounter Summary ---
Author Organization [employer] Address [address] [facility] 7t [place] [address] Care Team Providers Care Employment Assistant Name Role Phone Shereen Latham MD Primary Care Provider [phone] Nupur Bullock PharmD Unavailable [phone] Sury Benitez Unavailable [phone] Nirali Madrid OD Unavailable [phone] Li Grande MD Unavailable [phone] Anselmo Gates MD Unavailable Margaret Holman Unavailable Herberth Stokes MD Unavailable [phone] Encounter Details Date Type Department Care Team (Late st Contact Info) Description 05/02/2024 Orders Only [facility] MEDICINE [address] [place], [place] [phone] Shereen Latham MD [address] [place], [place] [phone] Gout, unspecified cause, unspecified chronicity, unspecified site [...] Info) Description 01/17/2025 3:00 PM EDT Nutrition [facility] DIABETES/NUTRITION [address] [place] [address] [place] [address] 03/29/2025 2:00 PM EDT Office Visit [facility] ADULT DENTAL [address] [place] [address] Jenny Gordon [address] [place] [address] documented as of this encounter Visit Diagnoses Diagnosis Gout, unspecified cause, unspecified chronicity, unspecified site- Primary documented in this encounter Additional Health Concerns Assessment Noted Time PHQ-9 Depression Total Score: 23 04/25/ 024 1:45 PM EDT documented as of this encounter Care Teams Employment Assistant Relationship Specialty Start Date End Date Shereen Latham MD [address] [place] [address] PCP - General Family Medicine 11/02/18 Nupur Bullock, CharleneD [address] [place] [address] Pharmacist Internal Medicine 08/09/24 Sury Benitez [address] [place] [address] Dr [facility] [address] [place] [address] Pulmonary Disease 09/27/24 Nirali Madrid OD [address] [place] [address] Optometry 10/27/24 Li Grande MD [address] [place] [address] Hematology and Oncology 10/27/24 Anselmo Gates MD [address] [facility] [address] [facility] [address] [place] [address] Orthopaedic Surgery 10/27/24 Margaret Holman 11 [facility] 3rd [place] [address] Cardiology 10/27/24 Herberth Stokes MD 11 [facility] 3rd [place] [address] Gastroenterology 10/27/24 Pily Delaney Site EngineerLog Deckman 07/22/24 Elie BRASHER [facility] Psychology 12/29/24 documented as of this encounter
--- OUTSIDE RECORDS SUMMARY | 2024-12-29 12:54 | XMS_ITS | Encounter Summary ---
Author Organization [employer] Address 75 [facility] 7t [place] [address] Care Team Providers Care Target Aircraft Controller Name Role Phone Shereen Latham MD Primary Care Provider [phone] Nupur Bullock PharmD Unavailable Sury Benitez Unavailable [phone] Nirali Madrid OD Unavailable [phone] Li Grande MD Unavailable [phone] Anselmo Gates MD Unavailable Margaret Holman Unavailable Herberth Stokes MD Unavailable [phone] Reason for Visit * Reason Comments Med Refill Encounter Details Date Type Department Care Team (Late st Contact Info) Description 12/02/2022 Refill [facility] MEDICINE [address] [place], [place] [phone] Shereen Latham MD [address] [place], [place] [phone] Wheeze (Primary Dx); Pain Social History Tobacco [...] Info) Description 01/17/2025 3:00 PM EDT Nutrition [facility] DIABETES/NUTRITION [address] [place] [address] FrancisErnestina tejada, RD [address] [place] [address] 03/29/2025 2:00 PM EDT Office Visit [facility] ADULT DENTAL [address] [place] [address] Heidi, Jenny [address] [place] [address] documented as of this encounter Visit Diagnoses Diagnosis Wheeze- Primary Wheezing Pain Generalized pain documented in this encounter Care Teams Target Aircraft Controller Relationship Specialty Start Date End Date Shereen Latham MD [address] [place] [address] PCP - General Family Medicine 11/02/18 Nupur Bullock PharmD [address] [place] [address] Pharmacist Internal Medicine 08/09/24 Sury Benitez [address] [place] [address] Dr [facility] [address] [place] [address] Pulmonary Disease 09/27/24 Nirali Madrid OD [address] [place] [address] Optometry 10/27/24 Li Grande MD [address] [place] [address] Hematology and Oncology 10/27/24 Anselmo Gates MD 10 [facility] [address] [place] [address] Orthopaedic Surgery 10/27/24 Margaret Holman [address] [place] [address] 3rd [place] [address] Cardiology 10/27/24 Herberth Stokes MD [address] [place] [address] [place] [address] Gastroenterology 10/27/24 Pily Delaney Hose InspectorPainter Spray 07/22/24 Elie BRASHER [facility] Psychology 12/29/24 documented as of this encounter
--- OUTSIDE RECORDS SUMMARY | 2024-12-29 12:54 | XMS_ITS | Encounter Summary ---
Author Organization [employer] Address 75 [facility] 7t [place] [address] Care Team Providers Care Manager Ecommerce Name Role Phone Shereen Latham MD Primary Care Provider [phone] Nupur Bullock PharmD Unavailable Sury Benitez Unavailable [phone] Nirali Madrid OD Unavailable Li Grande MD Unavailable [phone] Anselmo Gates MD Unavailable Margaret Holman Unavailable Herberth Stokes MD Unavailable [phone] Encounter Details Date Type Department Care Team (Late st Contact Info) Description 11/16/2022 Abstract [facility] MEDICINE [address] [place], [place] [phone] Shereen Latham MD 230 [place], [place] [phone] Social History Tobacco Use Types Packs/Day Years [...] 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 Per Dr. Krish Loomis's note from [facility] [employer], pt was due for repeat colposcopy in [...] Problem(s): Hyperaldosteronism (CMS/HCC) (Resolved 07/29/2023) Seen by [facility] Endocrinology 04/03/2022. Initially seen 12/2021 for hyperaldosteronism. Labs [facility] 10/2021 aldosterone 8, plasma renin 0.11, aldosterone/renin 72.7. She was likely on spironolactone and lisinopril at time of labs. Advise no spironolactone for 6 weeks and recheck renin aldosterone levels with renal panel and magnesium in regional driver. 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 -S/p RIGHT [facility] started Oct, completed [...] had ultrasound sound for abdominal pain at [facility]. Ultrasound showed diffusely echogenic parenchyma with focal sparing around the gallbladder. No suspicious lesions. Impression showed liver likely representing hepatic steatosis and non- obstructing right kidney stone. documented in this encounter Plan of Treatment Upcoming Encounters Date Type Department Care Team (Late st Contact Info) Description 01/17/2025 3:00 PM EDT Nutrition [facility] DIABETES/NUTRITION [address] [place] [address] [place] [address] 03/29/2025 2:00 PM EDT Office Visit [facility] ADULT DENTAL [address] [place] [address] Jenny Gordon [address] [place] [address] documented as of this encounter Visit Diagnoses Not on filedocumented in this encounter Care Teams Manager Ecommerce Relationship Specialty Start Date End Date Shereen Latham MD [address] [place] [address] PCP - General Family Medicine 11/02/18 Nupur Bullock, CharleneD [address] [place] [address] Pharmacist Internal Medicine 08/09/24 Sury Benitez [address] [place] [address] [address] Pulmonary Disease 09/27/24 Nirali Madrid OD [address] [place] [address] Optometry 10/27/24 Li Grande MD [address] [place] [address] Hematology and Oncology 10/27/24 Anselmo Gates MD [address] [facility] [address] [facility] [address] [place] [address] Orthopaedic Surgery 10/27/24 Margaret Holman 11 [facility] 3rd [place] [address] Cardiology 10/27/24 Herberth Stokes MD 11 [facility] 3rd [place] [address] Gastroenterology 10/27/24 Pily Delaney Care Management CoordinatorEscort Car Driver 07/22/24 Elie BRASHER [facility] Psychology 12/29/24 documented as of this encounter
--- OUTSIDE RECORDS SUMMARY | 2024-12-29 12:54 | XMS_ITS | Encounter Summary ---
Author Organization [employer] Address 75 [facility] 7t [place] [address] Care Team Providers Care Speech Coach Name Role Phone Shereen Latham MD Primary Care Provider [phone] Nupur Bullock PharmD Unavailable [phone] Sury Benitez Unavailable [phone] JuliusNirali castellanos OD Unavailable Li Grande MD Unavailable [phone] Anselmo Gates MD Unavailable Margaret Holman Unavailable Herberth Stokes MD Unavailable [phone] Encounter Details Date Type Department Care Team (Latest Contact Info) Description 08/16/2021 Abstract [facility] CONVERSIONS Dental, Provider, DDS Social History [...] Info) Description 01/17/2025 3:00 PM EDT Nutrition [facility] DIABETES/NUTRITION [address] [place] [address] Ernestina Esteban, KATE [address] [place] [address] 03/29/2025 2:00 PM EDT Office Visit [facility] ADULT DENTAL [address] [place] [address] Jenny Gordon [address] [place] [address] documented as of this encounter Visit Diagnoses Not on filedocumented in this encounter Care Teams Speech Coach Relationship Specialty Start Date End Date Shereen Latham MD 230 [place] [address] PCP - General Family Medicine 11/02/18 Nupur uBllock, CharleneD [address] [place] [address] Pharmacist Internal Medicine 08/09/24 Sury Benitez [address] [place] [address] Dr [facility] [address] [place] [address] Pulmonary Disease 09/27/24 Nirali Madrid OD [address] [place] [address] Optometry 10/27/24 Li Grande MD [address] [place] [address] Hematology and Oncology 10/27/24 Anselmo Gates MD [address] [place] [address] Orthopaedic Surgery 10/27/24 Margaret Holman 11 [facility] [address]rd [place] [address] Cardiology 10/27/24 Herberth Stokes MD 11 [facility] [address] [place] [address] Gastroenterology 10/27/24 Pily Delaney [employer] OperatorTennis Coach 07/22/24 Elie Vicky [facility] Psychology 12/29/24 documented as of this encounter
--- OUTSIDE RECORDS SUMMARY | 2024-12-29 12:54 | XMS_ITS | Encounter Summary ---
Author Organization [employer] Address [address] [place] [address] Care Team Providers Care Green Prize Packer Name Role Phone Shereen Latham MD Primary Care Provider [phone] Nupur Bullock PharmD Unavailable Sury Benitez Unavailable [phone] Nirali Madrid OD Unavailable [phone] Li Grande MD Unavailable [phone] Anselmo Gates MD Unavailable Margaret Holman Unavailable Herberth Stokes MD Unavailable [phone] Reason for Visit * Reason Comments follow up Mammo Encounter Details Date Type Department Care Team (Late st Contact Info) Description 12/29/2024 10:30 AM EST Office Visit [facility] [address] [place], [place] [id number] Shereen Latham MD [address], [place] [id number] History of right breast cancer (Primary Dx); Benign essential hypertension; History of chronic CHF; Heart failure with preserved ejection fraction, unspecified HF chronicity (CMS/HCC); SOB (shortness of breath); Mild intermittent reactive airway disease without complication; Gout, unspecified cause, unspecified chronicity, unspecified site; Severe episode of recurrent major depressive disorder, with psychotic features (CMS/HCC); Hypomagnesemia; Cardiac risk counseling; Tobacco dependence syndrome; Alcohol use disorder, moderate, dependence (CMS/HCC); Complex care coordination; Tubular adenoma of colon Social History Tobacco Use Types Packs/Day Years [...] Date Recorded Patient Health Questionnaire-9 Score 22 12/29/2024 Patient Health Questionnaire-9 Score 22 12/29/2024 Last PHQ-9: Questionnaire Data Not on file 0 12/29/2024 Housing Stability Answer Date Recorded What is your housing situation today? I have fritz fiona 12/29/[address] you li ve. Do you have problems with any of the following? None of the above 12/29/2024 Food Insecurity Answer Date Recorded Within the past 12 months, y ou worried that your food would run out before you got money to buy more: Sometimes True 2024 Within the past 12 months,th e food you bought just didn't last and you didn't have enough money to get more: Sometimes True 12/29/2024 Transportation Answer Date Recorded In the past 12 months, has l ack of transportation kept you from medical appts, meetings, work or from getting things needed for daily living? Yes, it has kept me from medical appointments or getting medications. 01/12/2024 Utilities Answer Date Recorded In the past 12 months, has t he [employer], gas, oil or water [employer] threatened to shut off services in your home? Yes 12/29/2024 Depression Answer Date Recorded Patient Health Questionnaire-2 Score 4 12/29/2024 Internet Access Answer Date Recorded Internet Access Q1 Yes 12/29/2024 Internet Access Q2 Not on file 12/29/2024 Comments No Sex and Gender Information Value Date Recorded Sex Assigned at Female 09/01/2022 10:14 AM EDT Legal Sex Female 10:14 AM EDT Gender Identity Female 09/01/2022 10:14 AM EDT Sexual Orientation Straight 09/01/2022 10 :14 AM EDT documented as of this encounter Last Filed Vital Signs Vital Sign Reading Time Taken Comments Blood Pressure 124/84 12/29/2024 9:54 AM EST Pulse 97 12/29/2024 9:54 AM EST Temperature 35.3 ??C (95.6 ??F) 12/29/2024 9:54 AM ES T Respiratory Rate - - Oxygen Saturation 97% 12/29/2024 9:54 AM EST Inhaled Oxygen Concentration - - Weight 91 kg (200 lb 9.6 oz) 12/29/2024 9:54 AM EST Height 170.2 cm (5' 7 ) 12/29/2024 9:54 AM EST Body Mass Index 31.42 12/29/2024 9:54 AM EST documented in this encounter Progress Notes * Shereen Latham MD - 12/29/2024 10:30 AM EST Subjective Patient ID: Azra Cast is a 49 y.o. female with past medical history of alcohol use disorder last intake June 04, anemia, breast cancer, essential hypertension, GERD, history of gout recent flares(twice in the past 3 weeks) and congestive heart failure who presents for follow up Mammo. Seen in the ER/hospital recurrently over the last year: 12/17/23 [facility] with alcohol withdrawal. 01/02/24 [facility] with alcohol withdrawal. 04/09/24 [facility] with alcohol withdrawal. 04/11/24 [facility] with alcohol withdrawal. 04/21/24 [facility] or left ankle pain. Dx with gout. Treated with prednisone. 06/24/24 hospitalized for congestive heart failure and hypertensive emergency. 07/06/24 [facility] for chest pain. 07/25/2024 - 07/27/2024 [facility] with right knee pain. Admitted for gout, treated with steroids and colchicine. 08/07/2024 [facility] presented for right knee gout exacerbation. Provided another course of steroids and colchicine. 09/07/24 [facility] for chest pain. 10/31/24 [facility] for chest pain. Dx with chest wall pain. 11/21/24 [facility] for R knee pain. Dx with gout and treated with prednisone. 12/06/24 [facility] for abdominal pain. Dx with muscle strain. 12/11/24 [facility] for water retention. Dx with dyspnea, did not seem fluid overloaded. 12/20/24 [facility] for right knee pain, treated for gout with prednisone Pt reports she has not had her mammogram done since she had the flu. She reports she has it rescheduled but cannot remember the date. She reports she has follow-up with psychiatrist in December 2024. Pt reports she called cardiology and they had made a follow-up appt thinking she had her stress test already, but she did not. Tried to get rescheduled for stress test but pt got impatient, reports she will call again. She reports she is doing better with drinking, but unspecified how. Pt reports she is currently smoking 5-6 cigarettes, she notes smoking more than recently. She reports she has felt she has been feeling increasingly swollen despite prednisone use. Pt reports she has been on different courses of prednisone over the past several months. The most time she has been off of prednisone has been about 1.5 weeks. Currently still on a course of prednisone and still taking allopurinol. Review of Systems Constitutional: Negative for fever and unexpected weight change. Respiratory: Negative for shortness of breath. Cardiovascular: Positive for leg swelling (geeralized). Negative for chest pain. Gastrointestinal: Negative for abdominal pain. Genitourinary: Negative for difficulty urinating. Objective Visit Vitals BP 124/84 (BP Location: Left arm, Patient Position: Sitting, BP Cuff Size: Adult) Pulse 97 Temp 95.6 ??F (35.3 ??C) (Temporal) Body mass index is 31.42 kg/m??. Physical Exam Constitutional: Appearance: Normal appearance. Cardiovascular: Rate and Rhythm: Normal rate and regular rhythm. Heart sounds: Normal heart sounds. Pulmonary: Effort: Pulmonary effort is normal. Breath sounds: Normal breath sounds. Musculoskeletal: Right lower leg: No edema. Left lower leg: No edema. Neurological: General: No focal deficit present. Mental Status: She is alert. Psychiatric: Behavior: Behavior normal. 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 -S/p RIGHT mastectomy with sentinel node bx by Dr. Prescott [facility] -Adriamycin/Cytoxan based chemotherapy started Oct, completed 4 [...] flare up. Will call to reschedule her [id number]/08/25 -Has appt for mammogram in December 2024. Benign essential hypertension -Blood pressure is at goal -Continue lifestyle modifications -Continue current medications - Prescribed spironolactone (Aldactone) 25 MG tablet 11/09/24 Relevant Orders Lipid Panel, Standard Basic Metabolic Panel (HFpEF) heart failure with preserved ejection fraction (CMS/HCC) >>ASSESSMENT AND PLAN FOR HISTORY OF CHRONIC CHF WRITTEN ON 12/29/2024 10:21 AM BY ARIELA PA -Echocardiogram done 10/18/2021 had shown EF 30-35%, mild LVH. She did not come for cardiology follow-up after that finding. A stress test at that time was incomplete. -Dx with acute congestive heart failure with reduced EF during admission to [facility] 06/22/24. - She was started on Lasix 40 mg daily, Aldactone 25 mg daily, losartan 25 mg b.i.d. and carvedilol6.25 mg b.i.d.. She says that her blood pressure was running low normal stopped her Aldactone. But restarted by cardiology aldactone, currently at 12.5 mg daily. - an echocardiogram was obtained that showed EF 55-60%, small loculated pericardial effusion and indeterminate diastolic function -Seen by [facility] Cardiology 08/01/24 : exercise nuclear stress test ordered for further evaluation of her Congestive heart failure and prior cardiomyopathy. Informed her that the stress test is in 3 parts and that she will need to attend all 3. Her cardiomyopathy may be related to uncontrolled hypertension, alcohol use. Ischemia will need to be ruled out. Cardiology follow-up in2-3 months, sooner if needed. -Has upcoming appt with Cardiology and echo ordered. -There was a mishap with her appt, will call again to get stress test scheduled 12/29/24. SOB (shortness of breath) -Followed by [facility] Pulmonology with Sury Benitez NP -02/2024 RAST test ordered to assess for allergic contribution. -empirically trial ICS 02/2024. Discontinued 09/2024 after PFTs and no reported improvement in symptoms -02/2024 PFTs revealed a restrictive ventilatory defect consistent with mild restrictive lung disease. The patient also has a significantly decreased expiratory reserve volume likely secondary to an elevated BMI. No evidence of obstruction and no significant response to bronchodilators noted. -09/12/24: symptoms are likely multifactorial with pulmonary and cardiac etiologies. -chest CT ordered 09/12/24 by pulmonary to evaluate for any underlying parenchymal conditions contributing to restrictive defect -CT 10/24/24 IMPRESSION: Mild thickening of the small airways suggesting chronic bronchitis. Minimal bronchiectasis. Stable cicatrization atelectasis of the right middle lobe with significant volume loss, unchanged and likely on the basis of post radiation changes to the right breast. Otherwise, noactive lung disease is identified. No interstitial disease is present. Stable scattered pulmonary nodules, largest in the right middle lobe measuring 5 mm abutting the major fissure, most likely an intrapulmonary lymph node. No change. -11/14/[address] in 1 year to assess stability of nodules. -11/14/24 Trial of Advair with nebulized albuterol prn, follow up 8 weeks with pulmonology -follow up pulm after stress test ordered by cardiology -There was a mishap with her appt, will call again to get stress test scheduled 12/29/24 Mild reactive airways disease Relevant Medications fluticasone-salmeterol (Advair) 230-21 MCG/ACT inhaler Gout Lab Results Component Value Date URICACID 5.9 (H) 08/30/2024 URICACID 5.4 06/16/2024 URICACID 7.9 (H) 04/25/2024 -Pt initially treated for gout in R 04/21/24 with uric acid 7.9 -Seen by hr advisor Dr. Bernstein 05/11/24 or evaluation of acute gout affecting left foot. -Pt admitted 07/25/24-07/2524 for swelling, pain, and warmth in the right knee. Patient had a low fever (100.3 F) and elevated WBC (27604 cells/uL), CRP, and ESR. Orthopedic surgery consulted who requested admission with IV antibiotics, received vancomycin and ceftriaxone. Found to have SIRS due to right knee gout, sepsis ruled out with thoracentesis. Antibiotics were discontinued, treated with steroids and colchicine. -Pt subsequently seen in ER dx with gout flairs 08/07/24, 11/21/24, 12/20/24 -still taking Allopurinol, patient has been on different courses of prednisone since 04/21/24 Currently still on a course of prednisone 12/29/24. Concerned about recurrent/prolonged prednisone use. Will try to wean off. Discussed breaking doses in half of remaining course to stretch out getting off. -check uric acid 12/29/24 -Continue colchicine 0.3 mg Twice daily for prophylaxis -Continue allopurinol 100 mg daily, plan to repeat acid level before next visit and increase allopurinol titrate allopurinol if needed to reach serum uric acid level <6 mg/dL(2020 [place] [employer] guideline for the management of gout: titrate allopurinol in 100 mg increments every 2 to 4 weeks to achieve the desired serum uric acid level, doses greater than 300 mg/day are oftenneeded to reach desired uric acid target). Relevant Orders Uric acid Severe episode of recurrent major depressive disorder, with psychotic features (CMS/HCC) -has therapist in [place]. Has appt. 12/30/24. Had intake for psychiatry and has follow-up appt in 12/2024. Hypomagnesemia Received magnesium IV in ER -Dose increased to TID Magnesium Date Value Ref Range Status 12/06/2024 1.6 1.6 - 2.6 mg/dL Final Saw CDTM on 08/16/24 who recommended assessing [...] magnesium oxide (Mag-Ox) 400 MG tablet 11/09/24 -ordered repeat labs 12/29/24 Relevant Orders Magnesium Cardiac risk counseling Calculated 12/29/24: High Risk The 10-year ASCVD risk score (Richardson DK, et al., 2019) is: 6.9% Values used to calculate the score: Age: 49 years Sex: Female Is Non- : No Diabetic: No Tobacco smoker: Yes Systolic Blood Pressure: 134 mmHg Is BP treated: Yes HDL Cholesterol: [...] Cardiology to schedule a Stress Test 11/09/24 -ordered repeat FLP and HFP 12/29/24 Tobacco dependence syndrome -Cigg/day: 5-6 -Age started: -Total years smoking: -Pack year history: Encouraged smoking cessation resources such as pharmacomtherapy, [facility] smoking cessation group, and [facility] pharmacy smoking cessation clinic Discussed USPSTF [...] node. No change. Ancillary findings as discussed. Alcohol use disorder, moderate, dependence (CMS/HCC) Longstanding, severe olesya drinking with hx admissions and withdrawal. Care complicated by difficulty accepting/comprehending risk. We have many times discussed risks including liver damage, liver failure and the risk of dying if she continues to drink. At times she hasbeen referred to [facility] but has not [...] subsequently declined -Admitted for alcohol detox at [facility] 04/09/24 -reports she is currently not drinking 08/24/24. Encouraged to continue abstinence. -Vague about drinking, but seemingly still drinking 12/29/24 Complex care coordination -Has MERCH[employer]ISING TEAM LEAD services with [employer] -She is applying [facility] 01/11/2024 -In our [facility] complex care management program -referred to [facility] on 01/04/2024 -Messaged sent to [facility] physical therapist for assistance in care visits Tubular adenoma of colon Other Visit Diagnoses History of chronic CHF Follow up in about 4 months (around 04/28/2025) for mammo, stress test, hr advisor, labs. I, Ariela Pa, am serving as a scribe to document services personally performed by Dr. Suh, based on the patient's response to questions by provider and providers statements to me. documented in this encounter Miscellaneous Notes * Assessment & Plan Note - Ariela Pa - 12/29/2024 10:31 AM ESTAssociated Problem(s): Hypomagnesemia Received magnesium IV in ER -Dose increased to TID Magnesium Date Value Ref Range Status 12/06/2024 1.6 1.6 - 2.6 mg/dL Final Saw CDTM on 08/16/24 who recommended assessing [...] magnesium oxide (Mag-Ox) 400 MG tablet 11/09/24 -ordered repeat labs 12/29/24 * Assessment & Plan Note - Ariela Pa - 12/29/2024 10:30 AM ESTAssociated Problem(s): Cardiac risk counseling Calculated 12/29/24: High Risk The 10-year ASCVD risk score (Becka JOY, et al., 2019) is: 6.9% Values used to calculate the score: Age: 49 years Sex: Female Is Non- : No Diabetic: No Tobacco smoker: Yes Systolic Blood Pressure: 134 mmHg Is BP treated: Yes HDL Cholesterol: [...] Cardiology to schedule a Stress Test 11/09/24 -ordered repeat FLP and HFP 12/29/24 * Assessment & Plan Note - Ariela Pa - 12/29/2024 10:30 AM ESTAssociated Problem(s): (HFpEF) heart failure with preserved ejection fraction (CMS/HCC) >>ASSESSMENT AND PLAN FOR HISTORY OF CHRONIC CHF WRITTEN ON 12/29/2024 10:21 AM BY ARIELA PA -Echocardiogram done 10/18/2021 had shown EF 30-35%, mild LVH. She did not come for cardiology follow-up after that finding. A stress test at that time was incomplete. -Dx with acute congestive heart failure with reduced EF during admission to [facility] 06/22/24. - She was started on Lasix 40 mg daily, Aldactone 25 mg daily, losartan 25 mg b.i.d. and carvedilol6.25 mg b.i.d.. She says that her blood pressure was running low normal stopped her Aldactone. But restarted by cardiology aldactone, currently at 12.5 mg daily. - an echocardiogram was obtained that showed EF 55-60%, small loculated pericardial effusion and indeterminate diastolic function -Seen by [facility] Cardiology 08/01/24 : exercise nuclear stress test ordered for further evaluation of her Congestive heart failure and prior cardiomyopathy. Informed her that the stress test is in 3 parts and that she will need to attend all 3. Her cardiomyopathy may be related to uncontrolled hypertension, alcohol use. Ischemia will need to be ruled out. Cardiology follow-up in2-3 months, sooner if needed. -Has upcoming appt with Cardiology and echo ordered. -There was a mishap with her appt, will call again to get stress test scheduled 12/29/24. * Assessment & Plan Note - Ariela Pa - 12/29/2024 10:26 AM ESTAssociated Problem(s): Gout Lab Results Component Value Date URICACID 5.9 (H) 08/30/2024 URICACID 5.4 06/16/2024 URICACID 7.9 (H) 04/25/2024 -Pt initially treated for gout in R 04/21/24 with uric acid 7.9 -Seen by hr advisor Dr. Bernstein 05/11/24 or evaluation of acute gout affecting left foot. -Pt admitted 07/25/24-07/2524 for swelling, pain, and warmth in the right knee. Patient had a low fever (100.3 F) and elevated WBC (60698 cells/uL), CRP, and ESR. Orthopedic surgery consulted who requested admission with IV antibiotics, received vancomycin and ceftriaxone. Found to have SIRS due to right knee gout, sepsis ruled out with thoracentesis. Antibiotics were discontinued, treated with steroids and colchicine. -Pt subsequently seen in ER dx with gout flairs 08/07/24, 11/21/24, 12/20/24 -still taking Allopurinol, patient has been on different courses of prednisone since 04/21/24 Currently still on a course of prednisone 12/29/24. Concerned about recurrent/prolonged prednisone use. Will try to wean off. Discussed breaking doses in half of remaining course to stretch out getting off. -check uric acid 12/29/24 -Continue colchicine 0.3 mg Twice daily for prophylaxis -Continue allopurinol 100 mg daily, plan to repeat acid level before next visit and increase allopurinol titrate allopurinol if needed to reach serum uric acid level <6 mg/dL(2020 [place] [employer] guideline for the management of gout: titrate allopurinol in 100 mg increments every 2 to 4 weeks to achieve the desired serum uric acid level, doses greater than 300 mg/day are oftenneeded to reach desired uric acid target). * Assessment & Plan Note - Ariela Pa - 12/29/2024 10:24 AM ESTAssociated Problem(s): SOB (shortness of breath) -Followed by [facility] Pulmonology with Sury Benitez NP -02/2024 RAST test ordered to assess for allergic contribution. -empirically trial ICS 02/2024. Discontinued 09/2024 after PFTs and no reported improvement in symptoms -02/2024 PFTs revealed a restrictive ventilatory defect consistent with mild restrictive lung disease. The patient also has a significantly decreased expiratory reserve volume likely secondary to an elevated BMI. No evidence of obstruction and no significant response to bronchodilators noted. -09/12/24: symptoms are likely multifactorial with pulmonary and cardiac etiologies. -chest CT ordered 09/12/24 by pulmonary to evaluate for any underlying parenchymal conditions contributing to restrictive defect -CT 10/24/24 IMPRESSION: Mild thickening of the small airways suggesting chronic bronchitis. Minimal bronchiectasis. Stable cicatrization atelectasis of the right middle lobe with significant volume loss, unchanged and likely on the basis of post radiation changes to the right breast. Otherwise, noactive lung disease is identified. No interstitial disease is present. Stable scattered pulmonary nodules, largest in the right middle lobe measuring 5 mm abutting the major fissure, most likely an intrapulmonary lymph node. No change. -11/14/[address] in 1 year to assess stability of nodules. -11/14/24 Trial of Advair with nebulized albuterol prn, follow up 8 weeks with pulmonology -follow up pulm after stress test ordered by cardiology -There was a mishap with her appt, will call again to get stress test scheduled 12/29/24 * Assessment & Plan Note - Ariela Pa - 12/29/2024 10:23 AM ESTAssociated Problem(s): Benign essential hypertension -Blood pressure is at goal -Continue lifestyle modifications -Continue current medications - Prescribed spironolactone (Aldactone) 25 MG tablet 11/09/24 * Assessment & Plan Note - Ariela Pa - 12/29/2024 10:23 AM ESTAssociated Problem(s): Alcohol use disorder, moderate, dependence (CMS/HCC) Longstanding, severe olesya drinking with hx admissions and withdrawal. Care complicated by difficulty accepting/comprehending risk. We have many times discussed risks including liver damage, liver failure and the risk of dying if she continues to drink. At times she hasbeen referred to [facility] but has not [...] subsequently declined -Admitted for alcohol detox at [facility] 04/09/24 -reports she is currently not drinking 08/24/24. Encouraged to continue abstinence. -Vague about drinking, but seemingly still drinking 12/29/24 * Assessment & Plan Note - Ariela Pa - 12/29/2024 10:21 AM ESTAssociated Problem(s): Complex care coordination -Has [employer]CH[employer]ISING TEAM LEAD services with [employer] -She is applying [facility] 01/11/2024 -In our [facility] complex care management program -referred to [facility] on 01/04/2024 -Messaged sent to [facility] physical therapist for assistance in care visits * Assessment & Plan Note - Ariela Pa - 12/29/2024 10:21 AM ESTAssociated Problem(s): History of chronic CHF (Deleted) -Echocardiogram done 10/18/2021 had shown EF 30-35%, mild LVH. She did not come for cardiology follow-up after that finding. A stress test at that time was incomplete. -Dx with acute congestive heart failure with reduced EF during admission to [facility] 06/22/24. - She was started on Lasix 40 mg daily, Aldactone 25 mg daily, losartan 25 mg b.i.d. and carvedilol6.25 mg b.i.d.. She says that her blood pressure was running low normal stopped her Aldactone. But restarted by cardiology aldactone, currently at 12.5 mg daily. - an echocardiogram was obtained that showed EF 55-60%, small loculated pericardial effusion and indeterminate diastolic function -Seen by [facility] Cardiology 08/01/24 : exercise nuclear stress test ordered for further evaluation of her Congestive heart failure and prior cardiomyopathy. Informed her that the stress test is in 3 parts and that she will need to attend all 3. Her cardiomyopathy may be related to uncontrolled hypertension, alcohol use. Ischemia will need to be ruled out. Cardiology follow-up in2-3 months, sooner if needed. -Has upcoming appt with Cardiology and echo ordered. -There was a mishap with her appt, will call again to get stress test scheduled 12/29/24. 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 -S/p RIGHT [facility]aste[facility]Cytoxan [facility] chemotherapy started Oct, [...] flare up. Will call to reschedule her [id number]/08/25 -Has appt for mammogram in December 2024. * Assessment & Plan Note - Ariela Pa - 12/29/2024 10:19 AM ESTAssociated Problem(s): Tobacco dependence syndrome -Cigg/day: 5-6 -Age started: -Total years smoking: -Pack year history: Encouraged smoking cessation resources such as pharmacomtherapy, [facility] smoking cessation group, and [facility] pharmacy smoking cessation clinic Discussed USPSTF [...] node. No change. Ancillary findings as discussed. * Assessment & Plan Note - Ariela Pa - 12/29/2024 10:16 AM ESTAssociated Problem(s): Severe episode of recurrent major depressive disorder, with psychotic features (CMS/HCC) -has therapist in [place]. Has appt. 12/30/24. Had intake for psychiatry and has follow-up appt in 12/2024. documented in this encounter Plan of Treatment Upcoming Encounters Date Type Department Care Team (Late st Contact Info) Description 01/17/2025 3:00 PM EDT Nutrition [facility] DIABETES/NUTRITION [address] [place] [address] Ernestina Esteban, RD [address] [place] [address] 03/29/2025 2:00 PM EDT Office Visit [facility] ADULT DENTAL [address] [place] [address] Heidi, Jenny [address] [place] [address] Scheduled Orders Name Type Priority Associated Diagnoses Orde r Schedule Lipid Panel, Standard Lab Routine Benign essential hypertension Expected: 12/29/2024 (Approximate), Expires: 12/29/2025 Basic Metabolic Panel Lab Routine Benign essential hypertension Expected: 12/29/2024 (Approximate), Expires: 12/29/2025 Magnesium Lab Routine Hypomagnesemia Expected: 12/29/2024, Expires: 12/29/2025 Uric acid Lab Routine Gout, unspecified cause, unspecified chronicity, unspecified site Expected: 12/29/2024 (Approximate), Expires: 12/29/2025 documented as of this encounter Visit Diagnoses Diagnosis History of right breast cancer- Primary Benign essential hypertension Essential hypertension, benign History of chronic CHF Heart failure with preserved ejection fraction, unspecified HF chronicity (CMS/HCC) SOB (shortness of breath) Shortness of breath Mild intermittent reactive airway disease without complication Gout, unspecified cause, unspecified chronicity, unspecified site Severe episode of recurrent major depressive disorder, with psychotic features (CMS/HCC) Hypomagnesemia Disorders of magnesium metabolism Cardiac risk counseling Tobacco dependence syndrome Tobacco use disorder Alcohol use disorder, moderate, dependence (CMS/HCC) Complex care coordination Tubular adenoma of colon Benign neoplasm of colon documented in this encounter Additional Health Concerns Assessment Noted Time PHQ-9 Depression Total Score: 22 025 10:17 AM EST documented as of this encounter Care Teams Green Prize Packer Relationship Specialty Start Date End Date Shereen Latham MD [address] [place] [address] PCP - General Family Medicine 11/02/18 Nupur Bullock, CharleneD [address] [place] [address] Pharmacist Internal Medicine 08/09/[address] [facility] [address] [facility] [address] [place] [address] Pulmonary Disease 09/27/24 iNrali Madrid OD [address] [place] [address] Optometry 10/27/24 Li Grande MD [address] [place] [address] Hematology and Oncology 10/27/24 Anselmo Gates MD [address] [facility] [place] [address] Orthopaedic Surgery 10/27/24 Margaret Holman [address] 3rd [place] [address] Cardiology 10/27/24 Herberth Stokes MD 11 [facility] 3rd [place] [address] Gastroenterology 10/27/24 Pily Delaney Recreation TechnicianRoller Gold Leaf 07/22/24 Elie Vicky [facility] 12/29/24 documented as of this encounter
--- OUTSIDE RECORDS SUMMARY | 2024-12-29 12:54 | XMS_ITS | Encounter Summary ---
Author Organization [employer] [place] Address [address] [facility] 7t [place] [address] Care Team Providers Care Ammunition Components Inspector Name Role Phone Shereen Latham MD Primary Care Provider [phone] Nupur Bullock PharmD Unavailable Sury Benitez Unavailable [phone] Nirali Madrid OD Unavailable [phone] Li Grande MD Unavailable [phone] Anselmo Gates MD Unavailable Margraet Holman Unavailable Herberth Stokes MD Unavailable [phone] Reason for Visit * Reason Onset Date Comments Nurse Triage 05/25/2024 Encounter Details Date Type Department Care Team (Late st Contact Info) Description 05/25/2024 Telephone [facility] MEDICINE [address] [place], [place] [phone] Shereen Latham MD 230 [place], [place] [phone] Nurse Triage Social History Tobacco Use Types [...] leftfoot pain and Pt was seen by tab machine operator, Leta Lunsford MD 05/11/24 also (report is on the chart). Pt had been advised to stop BP med chlorthalidone per tab machine operator [facility] because that particular medication is known to [...] anxiety. Pt is advised to come to [facility] today , open till 8pm, to be [...] Info) Description 01/17/2025 3:00 PM EDT Nutrition [facility] DIABETES/NUTRITION [address] [place] [address] [place] [address] 03/29/2025 2:00 PM EDT Office Visit [facility] ADULT DENTAL 230 [place] [address] Jenny Gordon 230 [place] [address] documented as of this encounter Visit Diagnoses Not on filedocumented in this encounter Additional Health Concerns Assessment Noted Time PHQ-9 Depression Total Score: 22 024 9:12 AM EDT documented as of this encounter Care Teams Ammunition Components Inspector Relationship Specialty Start Date End Date Shereen Latham MD 230 [place] [address] PCP - General Family Medicine 11/02/18 Nupur Bullock PharmD [address] [place] [address] Pharmacist Internal Medicine 08/09/24 Sury Benitez [address] [place] [address] Dr [facility] 103 [place] [address] Pulmonary Disease 09/27/24 Nirali Madrid OD [address] [place] [address] Optometry 10/27/24 Li Grande MD [address] [place] [address] Hematology and Oncology 10/27/24 Anselmo Gates MD [address] [facility] [address] [place] [address] Orthopaedic Surgery 10/27/24 Margaret Holman 11 [facility] 3rd [place] [address] Cardiology 10/27/24 Herberth Stokes MD [address] [facility] [address] [place] [address] Gastroenterology 10/27/24 Pily Delaney Rubber OffFarm General Manager 07/22/24 Elie Vicky [facility] Psychology 12/29/24 documented as of this encounter
--- OUTSIDE RECORDS SUMMARY | 2024-12-29 12:54 | XMS_ITS | Encounter Summary ---
Author Organization [employer] Address [address] [facility] 7t [place] [address] Care Team Providers Care Boring Machine Feeder Name Role Phone Shereen Latham MD Primary Care Provider [phone] Nupur Bullock PharmD Unavailable Sury Benitez Unavailable [phone] JuliusNirali castellanos OD Unavailable Li Grande MD Unavailable [phone] Anselmo Gates MD Unavailable Margaret Holman Unavailable Herberth Stokes MD Unavailable [phone] Encounter Details Date Type Department Care Team (Latest Contact Info) Description 07/06/2019 Abstract [facility] CONVERSIONS Dental, Provider, DDS Social History Tobacco [...] 01/17/2025 3:00 PM EDT Nutrition [facility] DIABETES/NUTRITION [address] [place] [address] Ernestina Esteban, KATE [address] [place] [address] 03/29/2025 2:00 PM EDT Office Visit [facility] ADULT DENTAL [address] [place] [address] Jenny Gordon 230 [place] [address] documented as of this encounter Visit Diagnoses Not on filedocumented in this encounter Care Teams Boring Machine Feeder Relationship Specialty Start Date End Date Shereen Latham MD 230 [place] [address] PCP - General Family Medicine 11/02/18 Nupur Bullock, CharleneD [address] [place] [address] Pharmacist Internal Medicine 08/09/24 Sury Benitez [address] [place] [address] Dr [facility] 103 [place] [address] Pulmonary Disease 09/27/24 Nirali Madrid OD [address] [place] [address] Optometry 10/27/24 Li Grande MD [address] [place] [address] Hematology and Oncology 10/27/24 Anselmo Gates MD [address] [facility] [address] [facility] [address] [place] [address] Orthopaedic Surgery 10/27/24 Margaret Holman 11 [facility] 3rd [place] [address] Cardiology 10/27/24 Herberth Stokes MD 11 [facility] [address] [place] [address] Gastroenterology 10/27/24 Pily Delaney Dna AnalystProject Manager 07/22/24 Elie Vicky [facility] Psychology 12/29/24 documented as of this encounter
--- OUTSIDE RECORDS SUMMARY | 2024-12-29 12:54 | XMS_ITS | Encounter Summary ---
Author Organization [employer] Address [address] [facility] 7t [place] [address] Care Team Providers Care Dockmaster Name Role Phone Shereen Latham MD Primary Care Provider Nupur Bullock PharmD Unavailable [phone] Sury Benitez Unavailable [phone] Nirali Madrid OD Unavailable [phone] Li Grande MD Unavailable [phone] Anselmo Gates MD Unavailable Margaret Holman Unavailable Herberth Stokes MD Unavailable [phone] Encounter Details Date Type Department Care Team (Latest Contact Info) Description 12/29/2024 Travel Social History Tobacco Use Types Packs/Day [...] housing situation today? I have fritz jaimes 12/29/[address] you li [...] Info) Description 01/17/2025 3:00 PM EDT Nutrition [facility] DIABETES/NUTRITION 230 [place], [place] [phone] Ernestina Esteban, RD 230 [place], [place] [phone] 03/29/2025 2:00 PM EDT Office Visit [facility] ADULT DENTAL 230 [place], [place] [phone] Jenny Gordon 230 [place] [address] documented as of this encounter Visit Diagnoses Not on filedocumented in this encounter Additional Health Concerns Assessment Noted Time PHQ-9 Depression Total Score: 22 025 10:17 AM EST documented as of this encounter Care Teams Dockmaster Relationship Specialty Start Date End Date Shereen Latham MD [address] [place] [address] PCP - General Family Medicine 11/02/18 Nupur Bullock, CharleneD [address] [place] [address] Pharmacist Internal Medicine 08/09/24 Sury Benitez [address] [place] [address] Dr [facility] 103 [place] [address] Pulmonary Disease 09/27/24 Nirali Madrid OD [address] [place] [address] Optometry 10/27/24 Li Grande MD [address] [place] [address] Hematology and Oncology 10/27/24 Anselmo Gates MD 10 [facility] 203 [place] [address] Orthopaedic Surgery 10/27/24 Margaret Holman 11 [facility] 3rd [place] [address] Cardiology 10/27/24 Herberth Stokes MD 11 [facility] 3rd [place] [address] Gastroenterology 10/27/24 Pily Delaney Business Division ChairChuck Wagon Cook 07/22/24 Elie Vicky [facility] 12/29/24 documented as of this encounter
--- OUTSIDE RECORDS SUMMARY | 2024-12-29 12:54 | XMS_ITS | Encounter Summary ---
Author Organization [employer] Address 75 [facility] 7t [place] [address] Care Team Providers Care Can Sorter Name Role Phone Shereen Lahtam MD Primary Care Provider [phone] Nupur Bullock PharmD Unavailable Sury Benitez Unavailable [phone] Nirali Madrid OD Unavailable Li Grande MD Unavailable [phone] Anselmo Gates MD Unavailable Margaret Holman Unavailable Herberth Stokes MD Unavailable [phone] Encounter Details Date Type Department Care Team (Late st Contact Info) Description 10/22/2023 Orders Only [facility] MEDICINE 230 [place], [place] [phone] Shereen Latham MD [address] [place], [place] [phone] Vitamin D deficiency Social History Tobacco Use [...] [facility] DIABETES/NUTRITION 230 [place] [address] [place] [address] 03/29/2025 2:00 PM EDT Office Visit [facility] ADULT DENTAL 230 [place] [address] Heidi, Jenny 230 [place] [address] documented as of this encounter Visit Diagnoses Diagnosis Vitamin D deficiency documented in this encounter Additional Health Concerns Assessment Noted Time PHQ-9 Depression Total Score: 21 023 10:42 AM EST documented as of this encounter Care Teams Can Sorter Relationship Specialty Start Date End Date Shereen Latham MD [address] [place] [address] PCP - General Family Medicine 11/02/18 Nupur Bullock, Pushpa [address] [place] [address] Pharmacist Internal Medicine 08/09/24 Sury Benitez [address] [place] [address] Dr [facility] 103 [place] [address] Pulmonary Disease 09/27/24 Nirali Madrid, SUSAN [address] [place] [address] Optometry 10/27/24 Li Grande MD [address] [place] [address] Hematology and Oncology 10/27/24 Anselmo Gates MD 10 [facility] [address] [place] [address] Orthopaedic Surgery 10/27/24 Margaret Holman 11 [facility] 3rd [place] [address] Cardiology 10/27/24 Herberth Stokes MD [address] [address] Gastroenterology 10/27/24 Pily Delaney Broomcorn ThresherBusiness Enterprise Officer 07/22/24 Elie Vicky [facility] 12/29/24 documented as of this encounter
--- OUTSIDE RECORDS SUMMARY | 2024-12-29 12:54 | XMS_ITS | Encounter Summary ---
Author Organization [employer] Address 75 [facility] 7t [place] [address] Care Team Providers Care Maintenance Worker House Trailer Name Role Phone Shereen Latham MD Primary Care Provider [phone] Nupur Bullock PharmD Unavailable [phone] Sury Benitez Unavailable [phone] Nirali Madrid OD Unavailable [phone] Li Grande MD Unavailable [phone] Anselmo Gates MD Unavailable Margaret Holman Unavailable Herberth Stokes MD Unavailable [phone] Encounter Details Date Type Department Care Team (Late st Contact Info) Description 04/26/2024 Orders Only [facility] MEDICINE [address] [place], [place] [phone] Junie Damon MD 230 [place], [place] [phone] Social History Tobacco Use Types Packs/Day Years [...] Info) Description 01/17/2025 3:00 PM EDT Nutrition [facility] DIABETES/NUTRITION [address] [place] [address] [place] [address] 03/29/2025 2:00 PM EDT Office Visit [facility] ADULT DENTAL [address] [place] [address] Jenny Gordon 230 [place] [address] documented as of this encounter Visit Diagnoses Not on filedocumented in this encounter Additional Health Concerns Assessment Noted Time PHQ-9 Depression Total Score: 23 024 1:45 PM EDT documented as of this encounter Care Teams Maintenance Worker House Trailer Relationship Specialty Start Date End Date Shereen Latham MD [address] [place] [address] PCP - General Family Medicine 11/02/18 Nupur Bullock PharmD [address] [place] [address] Pharmacist Internal Medicine 08/09/24 Sury [address]Bnitez [address] [place] [address] [address] Pulmonary Disease 09/27/24 Nirali Madrid OD 267 [place] [address] Optometry 10/27/24 Li Grande MD [address] [place] [address] Hematology and Oncology 10/27/24 Anselmo Gates MD 10 [facility] [address] [place] [address] Orthopaedic Surgery 10/27/24 Margaret Holman 11 [facility] 3rd [place] [address] Cardiology 10/27/24 Herberth Stokes MD 11 [facility] 3rd [place] [address] Gastroenterology 10/27/24 Pily Delaney Medical Insurance Claims ProcessorProtective Service Specialist 07/22/24 Elie Vicky [facility] 12/29/24 documented as of this encounter
--- OUTSIDE RECORDS SUMMARY | 2024-12-29 12:54 | XMS_ITS | Encounter Summary ---
Author Organization [employer] Address 75 [facility] 7t [place] [address] Care Team Providers Care Cut Lace Machine Operator Name Role Phone Shereen Latham MD Primary Care Provider [phone] Nupur Bullock PharmD Unavailable Sury Benitez Unavailable [phone] Nirali Madrid OD Unavailable Li Grande MD Unavailable [phone] Anselmo Gates MD Unavailable Margaret Holman Unavailable Herberth Stokes MD Unavailable [phone] Reason for Visit * Reason Onset Date Comments Medication Question 07/05/2024 Encounter Details Date Type Department Care Team (Late st Contact Info) Description 07/05/2024 Telephone [facility] MEDICINE 230 [place], [place] [phone] Shereen Latham MD 230 [place], [place] [phone] Medication Question Social History Tobacco Use Types [...] is no medication interaction. Contact pt at [phone] documented in this encounter Plan of Treatment Upcoming Encounters Date Type Department Care Team (Late st Contact Info) Description 01/17/2025 3:00 PM EDT Nutrition [facility] DIABETES/NUTRITION [address] [place] [address] Ernestina Esteban, KATE [address] [place] [address] 03/29/2025 2:00 PM EDT Office Visit [facility] ADULT DENTAL 230 [place] [address] HeidiJenny castaneda [address] [place] [address] documented as of this encounter Visit Diagnoses Diagnosis Pain Generalized pain documented in this encounter Additional Health Concerns Assessment Noted Time PHQ-9 Depression Total Score: 13 024 4:53 PM EDT documented as of this encounter Care Teams Cut Lace Machine Operator Relationship Specialty Start Date End Date Shereen Latham MD [address] [place] [address] PCP - General Family Medicine 11/02/18 Nupur Bullock PharmD [address] [place] [address] Pharmacist Internal Medicine 08/09/24 Sury Benitez [address] [place] [address] [address] [place] [address] Pulmonary Disease 09/27/24 Nirali Madrid OD [address] [place] [address] Optometry 10/27/24 Li Grande MD [address] [place] [address] Hematology and Oncology 10/27/24 Anselmo Gates MD [address] [place] [address] Orthopaedic Surgery 10/27/24 Margaret Holman 11 [facility] 3rd [place] [address] Cardiology 10/27/24 Herberth Stokes MD 11 [facility] [address]rd [place] [address] Gastroenterology 10/27/24 Pily Delaney Wreath Machine OperatorComputer Forensics Examiner 07/22/24 Elie BRASHER [facility] 12/29/24 documented as of this encounter
--- OUTSIDE RECORDS SUMMARY | 2024-12-29 12:54 | XMS_ITS | Clinical Summary ---
Author Organization [employer] Address [address] [place] [address] Care Team Providers Care D[employer] Laboratory Assistant Name Role Phone Shereen Latham MD Primary Care Provider [phone] Nupur Bullock PharmD Unavailable Sury Benitez Unavailable [phone] JuliusNirali castellanos OD Unavailable Li Grande MD Unavailable [phone] Anselmo Gates MD Unavailable Margaret Holman Unavailable Herberth Stokes MD Unavailable [phone] Allergies Active Allergy Reactions Criticality Noted [...] FOR PAIN OR FOR FEVER 60 tablet 12/21/19 25 Active fluticasone-venessa meterol (Advair) 230-21 MCG/ACT inhalerIndicati ons:Mild intermittent reactive airway disease without complication Inhale 2 puffs in the morning and at bedtime. Rinse mouth with water after use to reduce aftertaste and incidence of candidiasis. Do not swallow. Active Acetaminophen Extra Strength 500 MG tabletIndicatio ns:Pain TAKE 1 TABLET BY MOUTH EVERY 6 TO 8 HOURS NEEDED FOR PAIN OR FOR FEVER 60 tablet 11/23/19 25 025 Discontinued(R eorder (will not trigger notification to Pharmacy)) albuterol (2.5 MG/3ML) 0.083% nebulizer solution INHALE 1 AMPULE USING A NEBULIZER EVERY 4 TO 6 HOURS NEEDED FOR WHEEZING OR SHORTNESS OF BREATH 11/11/19 25 025 Discontinued(M ed list cleanup (will not trigger notification to Pharmacy)) Advair HFA 115-21 MCG/ACT inhaler INHALE 2 PUFFS BY MOUTH EVERY TWELVE HOURS, RINSE MOUTH AFTER USING. 11/14/19 25 025 Discontinued(M ed list cleanup (will not trigger notification to Pharmacy)) naproxen (Naprosyn) 500 MG tablet Take 1 tablet by mouth 2 times daily. 11/21/19 25 025 Discontinued predniSONE (Deltasone) 20 MG tablet Take 1 tablet by mouth Once per day. 11/21/19 25 025 Discontinued(M ed list cleanup (will not trigger notification to Pharmacy)) oxyCODONE (Roxicodone) 5 MG immediate release tablet TAKE 1 TABLET BY MOUTH TWICE DAILY NEEDED FOR SEVERE PAIN (7-10 PAIN SCALE) 12/20/19 25 025 Discontinued(M ed list cleanup (will not trigger notification to Pharmacy)) Active Problems Problem Noted Date Diagnosed Date Gout 07/13/2024 Overview (12/29/2024): Lab Results Component Value Date URICACID 5.9 (H) 08/30/2024 URICACID 5.4 06/16/2024 URICACID 7.9 (H) 04/25/2024 -Pt initially treated for gout in R 04/21/24 with uric acid 7.9 -Seen by kelly machine operator Dr. Bernstein 05/11/24 or evaluation of acute gout affecting left foot. -Pt admitted 07/25/24-07/2524 for swelling, pain, and warmth in the right knee. Patient had a low fever (100.3 F) and elevated WBC (94346 cells/uL), CRP, and ESR. Orthopedic surgery consulted [...] reach serum uric acid level <6 mg/dL(2020 [employer] guideline for the management of gout: titrate allopurinol in 100 mg increments every 2 to 4 weeks to achieve the desired serum uric acid level, doses greater than 300 mg/day are often needed to reach desired uric acid target). Assessment & Plan (12/29/2024 11:20 AM EST): Lab Results Component Value Date URICACID 5.9 (H) 08/30/2024 URICACID 5.4 06/16/2024 URICACID 7.9 (H) 04/25/2024 -Pt initially treated for gout in R 04/21/24 with uric acid 7.9 -Seen by kelly machine operator Dr. Bernstein 05/11/24 or evaluation of acute gout affecting left foot. -Pt admitted 07/25/24-07/2524 for swelling, pain, and warmth in the right knee. Patient had a low fever (100.3 F) and elevated WBC (68069 cells/uL), CRP, and ESR. Orthopedic surgery consulted [...] reach serum uric acid level <6 mg/dL(2020 [employer] guideline for the management of gout: titrate allopurinol in 100 mg increments every 2 to 4 weeks to achieve the desired serum uric acid level, doses greater than 300 mg/day are often needed to reach desired uric acid target). Assessment & Plan (10/27/2024 12:14 PM EST): >>ASSESSMENT AND PLAN FOR GOUT WRITTEN ON 08/24/2024 9:41 AM BY JOLIE Shelley CDTM on 08/16/24 who recommended assessing patient's uric acid level and titrate allopurinol if needed to reach serum uric acid level <6 mg/dL(2020 [employer] guideline for the management [...] ON 08/24/2024 9:45 AM BY JOLIE PA [facility] (07/25/2024 - 07/27/2024) Patient presented with swelling, pain, and warmth in the right knee. Patient had a low fever (100.3 F) and elevated WBC (64883 cells/uL), CRP, and ESR. Orthopedic surgery consulted [...] by mouth once daily for 5 days. [facility] ED (08/07/2024) Patient presented for right knee [...] tubular adenoma x 3 Flank pain 06/29/2024 Hydradenitis 06/29/2024 Overview (06/29/2024): -prescribed doxycycline Assessment & Plan (06/29/2024 4:47 PM EDT): -prescribed doxycycline SOB (shortness of breath) 06/29/2024 Overview (12/29/2024): -Followed by [facility] with Sury Benitez NP -02/2024 RAST [...] again to get stress test scheduled 12/29/24 Assessment & Plan (12/29/2024 11:03 AM EST): -Followed by [facility] with Sury Benitez NP -02/2024 RAST [...] again to get stress test scheduled 12/29/24 Assessment & Plan (08/24/2024 9:46 AM EDT): [...] if needed. -pt reports she saw her change analyst and is continuing management with them. . Assessment & Plan (07/13/2024 2:15 PM EDT): -referred to pulmonology 06/29/24 -Pt reports she has appt to see change analyst 08/01/24 Assessment & Plan (06/29/2024 4:49 PM EDT): -referred to pulmonology 06/29/24 (HFpEF) heart failure with preserved ejection fr action 06/29/2024 Overview (12/29/2024): >>OVERVIEW FOR HISTORY OF CHRONIC CHF WRITTEN ON 12/29/2024 10:21 AM BY JLOIE PA -Echocardiogram done 10/18/2021 had shown EF 30-35%, mild LVH. She did not come for cardiology follow-up after that finding. A stress test at that time was incomplete. -Dx with acute congestive heart failure with reduced EF during admission to [facility] 06/22/24. - She was started on Lasix [...] effusion and indeterminate diastolic function -Seen by [facility] 08/01/24 : exercise nuclear stress test [...] again to get stress test scheduled 12/29/24. Assessment & Plan (12/29/2024 10:27 AM EST): >>ASSESSMENT AND PLAN FOR HISTORY OF CHRONIC CHF WRITTEN ON 06/29/2024 4:09 PM BY JOLIE PA Dx with acute congestive heart failure with reduced EF during recent admission to [facility] 06/22/24. Pt was volume overloaded therefore treated with IV Lasix, Aldactone and losartan. - an echocardiogram was obtained that showed EF 55-60%, small loculated pericardial effusion and indeterminate diastolic function -patient responded to Lasix, BNP improved from 472 to 105, was followed closely by Cardiology in-patient -referred to Collaborative Drug Therapy Managment Program with our PharmDKALA for medication management 06/29/24 -referred to Cardiology for f/u 06/29/24 Assessment & Plan (12/29/2024 10:27 AM EST): >>ASSESSMENT AND PLAN FOR HISTORY OF CHRONIC CHF WRITTEN ON 07/13/2024 2:18 PM BY JOLIE PA Dx with acute congestive heart failure with reduced EF during recent admission to [facility] 06/22/24. Pt was volume overloaded therefore treated with IV Lasix, Aldactone and losartan. - an echocardiogram was obtained that showed EF 55-60%, small loculated pericardial effusion and indeterminate diastolic function -patient responded to Lasix, BNP improved from 472 to 105, was followed closely by Cardiology in-patient -referred to Collaborative Drug Therapy Managment Program with our PharmDKAAL for medication management 06/29/24 -referred to Cardiology for f/u 06/29/24 -Still awaiting appt 07/13/24 Assessment & Plan (12/29/2024 10:27 AM EST): >>ASSESSMENT AND PLAN FOR HISTORY OF CHRONIC CHF WRITTEN ON 08/24/2024 9:42 AM BY JOLIE PA -Echocardiogram done 10/18/2021 had shown EF 30-35%, mild LVH. She did not come for cardiology follow-up after that finding. A stress test at that time was incomplete. -Dx with acute congestive heart failure with reduced EF during admission to [facility] 06/22/24. - She was started on Lasix [...] effusion and indeterminate diastolic function -Seen by [facility] 08/01/24 : exercise nuclear stress test [...] Cardiology and echo ordered. Assessment & Plan (12/29/2024 10:27 AM EST): >>ASSESSMENT AND PLAN FOR HISTORY OF CHRONIC CHF WRITTEN ON 12/29/2024 10:21 AM BY JOLIE PA -Echocardiogram done 10/18/2021 had shown EF 30-35%, mild LVH. She did not come for cardiology follow-up after that finding. A stress test at that time was incomplete. -Dx with acute congestive heart failure with reduced EF during admission to [facility] 06/22/24. - She was started on Lasix [...] effusion and indeterminate diastolic function -Seen by [facility] 08/01/24 : exercise nuclear stress test [...] again to get stress test scheduled 12/29/24. Dyspepsia 06/20/2024 Assessment & Plan (06/20/2024 4:00 PM EDT): Sec to colchicine DC colchicine, start Sucralfate x 1w Depression with anxiety 04/25/2024 Assessment & Plan (11/17/2024 1:56 PM EST): Denies suicidial or homacidial ideation Cardiac risk counseling 02/24/2024 Overview (12/29/2024): Calculated 02/27/25: High Risk The 10-year ASCVD risk score [...] 11/09/24 -ordered repeat FLP and HFP 12/29/24 Assessment & Plan (12/29/2024 10:30 AM EST): Calculated 12/29/24: High Risk The 10-year ASCVD [...] 11/09/24 -ordered repeat FLP and HFP 12/29/24 Assessment & Plan (11/09/2024 12:53 PM EST): [...] 01/23/2022 Mild reactive airways disease 01/11/2024 Overview (12/29/2024): -Pulmonology note 09/08/24 PFT which revealed a [...] in 6-8 weeks or sooner if needed. Assessment & [...] Complex care coordination 01/11/2024 Overview (01/11/2024): -Has DOVETAIL MACHINE OPERATOR services with [facility] -She is applying [facility] 01/11/2024 -In our complex care management program -referred to CB on 01/04/2024 -Messaged sent to [employer]3 careers counsellor for assistance in care visits Assessment & Plan (12/29/2024 10:21 AM EST): -Has DOVETAIL MACHINE OPERATOR services with [facility] Martin is applying [facility] 01/11/2024 -In our complex care management program -referred to [facility] on 01/04/2024 -Messaged sent to C3 careers counsellor for assistance in care visits Assessment & Plan (08/24/2024 9:19 AM EDT): -Has DOVETAIL MACHINE OPERATOR services with [facility] Martin is applying [facility] 01/11/2024 -In our complex care management program -referred to [facility] on 01/04/2024 -Messaged sent to C3 careers counsellor for assistance in care visits Assessment & Plan (06/29/2024 4:06 PM EDT): -Has DOVETAIL MACHINE OPERATOR services with [facility] Martin is applying [facility] 01/11/2024 -In our complex care management program -referred to [facility] on 01/04/2024 -Messaged sent to C3 careers counsellor for assistance in care visits Assessment & Plan (01/11/2024 9:30 AM EDT): -Has DOVETAIL MACHINE OPERATOR services with [facility] Martin is applying [facility] 01/11/2024 -In our complex care management program -referred to [facility] on 01/04/2024 -Messaged sent to C3 careers counsellor for assistance in care visits Generalized anxiety [...] Pain Management team and will reconnect with [facility]. Information given to patient. PLAN: [...] intervention , Patient to reach out to [facility] team as needed, and Patient to engage in OP therapy Provided patient with support in scheduling an Intake appt with [facility]. Tubular adenoma of colon 09/07/2023 Overview (12/29/2024): Cologuard positive 08/27/23. Called pt and referral for GI placed 09/07/2023. Pt was scheduled and missed it then rescheduled February 2024 but caught covid. Now scheduled for July 2024. Continues to call to see if can be seen sooner due to cancellation. Pt agrees with the plan. -tubular adenoma x 3 on colonoscopy 07/11/24, repeat due in 2 years (07/2026) Assessment & Plan (06/29/2024 4:03 PM EDT): [...] for transfusion - Iron infusions ordered by Information Director DR. Grande - She recieved two sessions [...] for transfusion - Iron infusions ordered by Information Director DR. Grande - She recieved two sessions [...] for transfusion - Iron infusions ordered by Information Director DR. Grande - She recieved two sessions [...] for transfusion - Iron infusions ordered by Information Director DR. Grande - She recieved two sessions [...] co-pay for psychological clearance. Hypomagnesemia 07/22/2023 Overview (12/29/2024): Received magnesium IV in ER -Dose increased [...] MG tablet 11/09/24 -ordered repeat labs 12/29/24 Assessment & Plan (12/29/2024 11:10 AM EST): Received magnesium IV in ER -Dose increased [...] MG tablet 11/09/24 -ordered repeat labs 12/29/24 Assessment & Plan (11/09/2024 12:49 PM EST): [...] value for test(s): MAGS Results called to lynnelulu back by: Janett Ortega Person calling: [employer] Date:06/16/24 Time: 1218 Saw CDTM on 08/16/24 [...] value for test(s): MAGS Results called to lnynelulu back by: Janett Ortega Person calling: [employer] Date:06/16/24 Time: 1218 Assessment & Plan (07/29/2023 4:34 PM EDT): Received magnesium IV in ER -Dose increased to TID - Recheck in 2 weeks Other specified health status 07/20/2023 Overview (07/11/2024): -next physical exam due after 06/29/25 -eye care facilitated by [facility] -dental home is [facility] -health care proxy filed 06/29/24 Assessment & Plan (06/29/2024 4:03 PM EDT): -next physical exam due after 06/29/25 -eye care facilitated by [facility] -dental home is [facility] -health care proxy given and filed [...] alcohol abuse. History of alcohol withdrawal syndrome Assessment & Plan (06/05/2023 10:40 AM EDT): No hallucinations or delirium CIWA score of 28 EMS called and arrived on scene within 10 minutes, transfer completed [facility] ER called with expect Chronic GERD 05/26/2023 [...] left. Scheduled nerve blocks. Fibromyalgia 11/16/2022 Overview (12/29/2024): Pt has chronic pain syndrome. Multiple work [...] had ultrasound sound for abdominal pain at [facility] revealing diffusely echogenic parenchyma with focal sparing [...] had ultrasound sound for abdominal pain at [facility] revealing diffusely echogenic parenchyma with focal sparing [...] had ultrasound sound for abdominal pain at [facility] revealing diffusely echogenic parenchyma with focal sparing [...] had ultrasound sound for abdominal pain at [facility] revealing diffusely echogenic parenchyma with focal sparing [...] had ultrasound sound for abdominal pain at [facility] revealing diffusely echogenic parenchyma with focal sparing [...] had ultrasound sound for abdominal pain at [facility]. Ultrasound showed diffusely echogenic parenchyma with focal sparing around the gallbladder. No suspicious lesions. Impression showed liver likely representing hepatic steatosis and non- obstructing right kidney stone. Benign essential hypertension 12/13/2021 Overview (11/09/2024): -Blood pressure is at goal -Continue lifestyle modifications -Continue current medications - Prescribed spironolactone (Aldactone) 25 MG tablet 11/09/24 Assessment & Plan (12/29/2024 10:23 AM EST): -Blood pressure is at goal -Continue [...] Alcohol use disorder, moderate, dependence 12/12 Overview (12/29/2024): Longstanding, severe olesya drinking with hx admissions and withdrawal. Care complicated by difficulty accepting/comprehending risk. We have many times discussed risks including liver damage, liver failure and the risk of dying if she continues to drink. At times she has been referred to [facility] for Support and Recovery but has not [...] subsequently declined -Admitted for alcohol detox at [facility] 04/09/24 -reports she is currently not drinking 08/24/24. Encouraged to continue abstinence. -Vague about drinking, but seemingly still drinking 12/29/24 Assessment & Plan (12/29/2024 10:23 AM EST): Longstanding, severe olesya drinking with hx admissions and withdrawal. Care complicated by difficulty accepting/comprehending risk. We have many times discussed risks including liver damage, liver failure and the risk of dying if she continues to drink. At times she has been referred to [facility] for Support and Recovery but has not [...] subsequently declined -Admitted for alcohol detox at [facility] 04/09/24 -reports she is currently not drinking 08/24/24. Encouraged to continue abstinence. -Vague about drinking, but seemingly still drinking 12/29/24 Assessment & Plan (08/24/2024 9:39 AM EDT): Longstanding, severe olesya drinking with hx admissions and withdrawal. Care complicated by difficulty accepting/comprehending risk. We have many times discussed risks including liver damage, liver failure and the risk of dying if she continues to drink. At times she has been referred to [facility] for Support and Recovery but has not [...] subsequently declined -Admitted for alcohol detox at [facility] 04/09/24 -reports she is currently not drinking [...] phenobarb improved her symptoms, patient declined wildlife biology internship help to place her in rehab, is [...] phenobarb improved her symptoms, patient declined wildlife biology internship help to place her in rehab, is [...] History of right breast cancer 12/12/2021 Overview (12/29/2024): Adenocarcinoma of the right breast with DCIS grade 3, cribriform type, invasive tumor 2.2 cm ER positive, WA positive, HER-2/RON negative, two sentinel nodes negative. -[facility] started Oct, completed [...] discharged from clinic. -She reestablished with oncology 08/30/2024 -Has appt on 09/01/24 for mammo. - Pt missed her Mammogram appointment due to Gout flare up. Will call to reschedule her appointment 11/09/24 -Has appt for mammogram in December 2024. Assessment & Plan (12/29/2024 10:20 AM EST): Adenocarcinoma of the right breast with DCIS grade 3, cribriform type, invasive tumor 2.2 cm ER positive, WA positive, HER-2/RON negative, two sentinel nodes negative. -S/p RIGHT [facility]Cy[facility]an [facility] started Oct, completed [...] Will call to reschedule her appointment 11/09/24 -Has appt for mammogram in December 2024. Assessment & Plan (11/09/2024 12:59 PM EST): Adenocarcinoma of the right breast with DCIS grade 3, cribriform type, invasive tumor 2.2 cm ER positive, WA positive, HER-2/RON negative, two sentinel nodes negative. -S/p RIGHT [facility]Cytoxan [facility] started Oct, completed [...] type, invasive tumor 2.2 cm ER positive, WA positive, HER-2/RON negative, two sentinel nodes negative. -S/p RIGHT mastectomy with sentinel node bx by Dr. Prescott [facility] -Adriamycin/Cytoxan based chemotherapy started Oct, [...] type, invasive tumor 2.2 cm ER positive, WA positive, HER-2/RON negative, two sentinel nodes negative. -S/p RIGHT mastectomy with sentinel node bx by Dr. Prescott [facility] -Adriamycin/Cytoxan based chemotherapy started Oct, [...] type, invasive tumor 2.2 cm ER positive, WA positive, HER-2/RON negative, two sentinel nodes negative. -S/p RIGHT mastectomy with sentinel node bx by Dr. Prescott [facility] -Adriamycin/Cytoxan based chemotherapy started Oct, [...] type, invasive tumor 2.2 cm ER positive, WA positive, HER-2/RON negative, two sentinel nodes negative. -S/p RIGHT [facility]Cytoxan [facility] chemotherapy started Oct, completed [...] type, invasive tumor 2.2 cm ER positive, WA positive, HER-2/RON negative, two sentinel nodes negative. -S/p RIGHT [facility]Cytoxan based chemotherapy started Oct, completed [...] type, invasive tumor 2.2 cm ER positive, WA positive, HER-2/RON negative, two sentinel nodes negative. -S/p RIGHT [facility]Cytoxan based [facility] started Oct, completed [...] type, invasive tumor 2.2 cm ER positive, WA positive, HER-2/RON negative, two sentinel nodes negative. -S/p RIGHT [facility]Cytoxan based [facility] started Oct, completed [...] Overview (06/28/2024): Lab Results Component Value Date [id number] 58.3 06/16/2024 [id number] 106.4 01/04/2024 [id number] 76.8 09/22/2023 Assessment & Plan (06/29/2024 3:39 PM EDT): Lab Results Component Value Date [id number] 58.3 06/16/2024 [id number] 106.4 01/04/2024 [id number] 76.8 09/22/2023 Assessment & Plan (12/14/2023 12:09 PM EST): Lab Results Component Value Date [id number] 76.8 09/22/2023 -Labs ordered for further evaluation: Vitmain D, 25-hydroxy, Total, Immunoassay. 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 Per Dr. Krish Loomis's note from [facility] HEREDITARY CANCER PROGRAM COORDINATOR, pt was due for repeat colposcopy in [...] CIN2-3. Per Dr. Krish Loomis's note from [facility], pt was due for repeat [...] CIN2-3. Per Dr. Krish Loomis's note from [facility], pt was due for repeat [...] CIN2-3. Per Dr. Krish Loomis's note from [facility], pt was due for repeat colposcopy in 2011. -Total Vaginal Hysterectomy 08/27/17 ('with MONICA 2 pathology and negative resection margins'). Per note dated 11/27/17 Dr. Reyes; 'patient to discontinue PAP screening'. -Vaginal pap NILM HPV negative 08/2018, per not no further paps indicated Generalized pain 09/14/2014 Severe episode of recurrent major depressive disorder, with psychotic features 04/19/2014 Overview (12/29/2024): -has therapist in [place]. Has appt. 12/30/24. Had intake for psychiatry and has follow-up appt in 12/2024. Assessment & Plan (12/29/2024 10:16 AM EST): -has therapist in [place]. Has appt. 12/30/24. Had intake for psychiatry and has follow-up appt in 12/2024. Assessment & Plan (11/09/2024 12:56 PM EST): [...] Health Integration Plan Internal Follow up with [facility] Patient Self Plan Patient to utilize skills provided in intervention , Patient to reach out to [facility] team as needed, Patient to reach out to [facility] as needed, and will contact [facility] Intake number to connect with termite treater OP services, and psychiatrist. Rule Out Diagnoses: [...] left surgery Tobacco dependence syndrome 03/23/2014 Overview (12/29/2024): -Cigg/day: 5-6 -Age started: -Total years smoking: -Pack year history: Encouraged smoking cessation resources such as pharmacomtherapy, [facility] smoking cessation group, and [facility] pharmacy smoking cessation clinic Discussed USPSTF recommends [...] Ancillary findings as discussed. Assessment & Plan (12/29/2024 10:19 AM EST): -Cigg/day: 5-6 -Age started: -Total years smoking: -Pack year history: Encouraged smoking cessation resources such as pharmacomtherapy, [facility] smoking cessation group, and [facility] pharmacy smoking cessation clinic Discussed USPSTF recommends [...] as pharmacomtherapy, [facility] smoking cessation group, and [facility] pharmacy smoking cessation clinic Discussed USPSTF recommends [...] as pharmacomtherapy, [facility] smoking cessation group, and [facility] pharmacy smoking cessation clinic Discussed USPSTF recommends [...] as pharmacomtherapy, [facility] smoking cessation group, and [facility] [facility] pharmacy smoking cessation clinic Discussed USPSTF recommends [...] then restart Allopurinol and fu with PCP. Gout flare 05/11/2024 12/29/2024 Overview (07/13/2024): Seen by kelly machine operator Dr. Bernstein 05/11/24 or evaluation of acute [...] Plan (07/13/2024 2:21 PM EDT): Seen by kelly machine operator Dr. Bernstein 05/11/24 or evaluation of acute [...] to another antihypertensive -Labs showed negative acid. Acute gout of left foot 04/25/202410/03 Alcohol [...] EDT): Patient requesting a Physical for her DOVETAIL MACHINE OPERATOR hours to be re-instated. On exam today, her vitals are stable and her exam seems unchanged from previous one. Work up in progress for her c/o bilateral foot pain Hospital discharge follow-up 06/18/2023 07/20/2023 Assessment & Plan (07/14/2023 10:23 AM EDT): Patient here for a HDF. She was admitted to [facility] from 06/05-06/08 . She presented with concerns [...] Hyperaldosteronism 11/16/2022 3 Overview (11/16/2022): Seen by [facility] 04/03/2022. Initially seen 12/2021 for hyperaldosteronism. Labs [facility] 10/2021 aldosterone 8, plasma renin 0.11, aldosterone/renin 72.7. She was likely on spironolactone and lisinopril at time of labs. Advise no spironolactone for 6 weeks and recheck renin aldosterone levels with renal panel and magnesium in metal pattern maker. Assessment & Plan (11/16/2022 10:55 AM EST): Seen by [facility] 04/03/2022. Initially seen 12/2021 for hyperaldosteronism. Labs [facility] 10/2021 aldosterone 8, plasma renin 0.11, aldosterone/renin 72.7. She was likely on spironolactone and lisinopril at time of labs. Advise no spironolactone for 6 weeks and recheck renin aldosterone levels with renal panel and magnesium in metal pattern maker. Anxiety 04/19/2014 01/28/2024 Encounters * This document contains information received from the source organization and may not represent a complete record from that organization. Date Type Department Care Team Description 12/29/2024 10:30 AM EST Office Visit [address] [address] Shereen Latham MD History of right breast cancer (Primary Dx); [...] Complex care coordination; Tubular adenoma of colon 12/29/2024 Travel 12/22/[address] [address] Shereen Latham MD Durable Medical Equipment; chartprep 12/22/[address] [address] Shereen Latham MD Nurse Triage 12/21/2024 3:30 PM EST Telemedicine [address] [address] Nupur Bullock PharmD Preventative health care (Primary Dx) 12/21/2024 Travel 12/21/2024 Refill [facility] MED & PEDS [address] [place] [address] Shereen Latham MD Pain 12/20/2024 Orders Only [facility] External Provider, [facility] 12/14/2024 Travel 12/12/2024 Patient Outreach [address] [address] Shereen Latham MD Transition Of Care (Tcm) 12/10/2024 Orders Only GENERIC EXTERNAL DATA DEPARTMENT Provider, Generic External Data 12/09/[address] [address] Shereen Latham MD Nurse Triage 12/07/[address] [address] Shereen Latham MD ER Follow-up 12/06/2024 Orders Only GENERIC EXTERNAL DATA DEPARTMENT Provider, Generic External Data 12/03/2024 Travel 11/25/2024 Orders Only [facility] MEDICINE [address] [place] [address] Shereen Latham MD Vaginal lesion (Primary Dx) 11/23/2024 3:30 PM EST Telemedicine [address] [address] Nupur Bullock PharmD Benign essential hypertension (Primary Dx) 11/23/[address] [address] Shereen Latham MD Referral 11/22/2024 Refill [facility] MED & PEDS [address] [place] [address] Shereen Latham MD Pain 11/22/2024 Patient Outreach [address] [address] Shereen Latham MD Transition Of Care (Tcm) 11/18/2024 Telephone [facility] MED & PEDS [address] [place] [address] Violetta Mackey MA Breast Cancer Screening 11/17/2024 2:40 PM EST Office Visit [facility] WALK-IN CENTER [address] [place] [address] Shereen Latham MD Benign essential hypertension (Primary Dx); Depression with anxiety 11/17/2024 Travel 11/17/2024 Telephone [facility] MEDICINE [address] [place] [address] Shereen Latham MD Nurse Triage 2024 Travel 11/10/2024 Telephone [facility] MEDICINE [address] [place] [address] Shereen Latham MD Nurse Triage 11/10/[address] [address] Shereen Latham MD Benign essential hypertension 11/09/2024 11:30 AM EST Office Visit [address] [address] Shereen Latham MD Gout of foot, unspecified cause, unspecified chronicity, unspecified laterality (Primary Dx); Mild intermittent reactive airway disease without complication; Benign essential hypertension; Severe episode of recurrent major depressive disorder, with psychotic features (CMS/HCC); Alcohol use disorder, moderate, dependence (CMS/HCC); Dietary counseling; Exercise counseling; Overweight; Hypomagnesemia; Anemia, unspecified type; Cardiac risk counseling; History of right breast cancer 11/09/2024 Travel 11/08/2024 Telephone [facility] MED & PEDS [address] [place] [address] Laura Cifuentes MD 11/08/2024 Orders Only [address] [address] Shereen Latham MD Iron deficiency anemia, unspecified iron deficiency anemia type (Primary Dx) 11/01/2024 Patient Outreach [facility] MED & PEDS [address] [place] [address] Shereen Latham MD Transition Of Care (Tcm) 11/01/[address] [address] Shereen Latham MD Results 10/31/2024 Orders Only [facility] External Provider, [facility] 10/31/[address] [address] Shereen Latham MD Nurse Triage 10/24/2024 Orders Only [facility] External Provider, [facility] Tobacco dependence syndrome (Primary Dx) 10/21/[address] [address] Audrey [place], JULIO CESAR Results 10/21/[address] [address] Shereen Latham MD Results 10/20/2024 1:20 PM EST Office Visit [facility] WALK-IN CENTER [address] [place] [address] Tari Chance NP Cough in adult patient (Primary Dx); Lesion of nasal mucosa; Tachycardia 10/20/2024 9:30 AM EST Office Visit [facility] OPTOMETRY [address] [place] [address] Julius, Nirali, OD Presbyopia (Primary Dx) 10/20/2024 Refill [facility] MED & PEDS [address] [place] [address] Shereen Latham MD Benign essential hypertension 10/20/2024 Travel 10/20/2024 Telephone [facility] MEDICINE [address] [place] [address] Shereen Latham MD Nurse Triage 10/17/2024 Refill [facility] MED & PEDS [address] [place] [address] Shereen Latham MD Mild intermittent asthma, unspecified whether complicated; Pain 10/12/2024 Refill [facility] MEDICINE [address] [place] [address] Shereen Latham MD Hypomagnesemia 10/11/2024 Telephone [facility] MEDICINE [address] [place] [address] Shereen Latham MD 10/03/2024 Patient Outreach [facility] MEDICINE [address] [place] [address] Shereen Latham MD Transition Of Care (Tcm) 09/28/2024 9:00 AM EST Office Visit [facility] ADULT DENTAL [address] [place] [address] Jenny Gordon Dental plaque (Primary Dx) from Last 3 Months Immunizations Name Administration [...] 12/29/2024 9:54 AM ES T Respiratory Rate 18 11/17/2024 1:37 PM EST Oxygen Saturation 97% 12/29/2024 9:54 AM EST Inhaled Oxygen Concentration - - Weight 91 kg (200 lb 9.6 oz) 12/29/2024 9:54 AM EST Height 170.2 cm (5' 7 ) 12/29/2024 9:54 AM EST Body Mass Index 31.42 12/29/2024 9:54 AM EST Plan of Treatment Upcoming Encounters Date Type Department Care Team (Late st Contact Info) Description 01/17/2025 3:00 PM EDT Nutrition [facility] DIABETES/NUTRITION [address] [place] [address] Ernestina Esteban, RD [address] [place] [address] 03/29/2025 2:00 PM EDT Office Visit [facility] ADULT DENTAL [address] [place] [address] Heidi, Jenny [address] [place] [address] Health Maintenance Due Date Last Done Comments CT Colonography 1975 FIT 1975 FOBT 1975 Sigmoidoscopy 1975 Dental X-Ray: Full Mouth 07/07/2022 07/06/2019 Zoster Vaccines (1 of 2) 2023 Mammogram 08/27/2024 08/27/2023, 12, 09/09/2019 Dental Oral Exam 12/19/2024 06/17/2024, 07/06/2019 Hepatitis A Vaccines (2 of 2 - Risk 2-dose series) 12/30/2024 06/29/2024 Dental Prophylaxis 03/29/2025 09/28/2024, 1 , 07/06/2019 Alcohol/Substance Use Screening 04/25/2025 04/25/2024 Influenza Vaccine (#1) 2025 09/06/2015 Postp oned from 07/03/2024 (Patient Refused) Dental X-Ray: Bitewings 06/18/2025 06/17/20, 03/31/2024, 08/16/2021, Additional history exists Depression Monitoring (PHQ-9) 06/28/2025 12/29/2024, 12/29/2024 DTaP/Tdap/Td Vaccines (4 - Tdap) 06/29/2025 08/10/2020, 07/16/2007, 07/05/1981, Additional history exists Postponed from 08/11/2020 (Patient Refused) COVID-19 Vaccine (2 - season) 2025 02/09/2021 Postponed from 07/03/2024 (Patient Refused) Depression Screening 12/29/2025 12/29/2024, 12/29/19 25 Family Planning (PISQ) 12/29/2025 12/29/2024 SDOH Screening 12/29/2025 12/29/2024 Tobacco Screening 12/29/2025 12/29/2024 Colonoscopy 07/11/2026 07/11/2024 Colorectal Cancer Screening 07/11/2026 FIT DNA/Cologuard 08/27/2026 08/27/2023 Lipid Panel 06/16/2029 06/16/2024, 09/03, 07/24/2023, Additional history exists RSV Patients and Patients Aged 60 years or older (1 - 1-dose 75+ series) 2048 IPV Vaccines Completed 07/05/1981, 07/0 04/1980, 08/24/1978, Additional history exists HPV/Cotest Discontinued [...] Procedure Name Priority Date/Time Associated Diagnosis Comments XR KNEE 1-2 VIEWS RIGHT Routine 12/20/2024 7:45 AM EST XR CHEST 1 VIEW Routine 12/11/2024 12:34 AM EST B TYPE NATRIURETIC PEPTIDE (BNP) Routine 12/10/2024 11:48 PM EST COMPREHENSIVE METABOLIC PANEL Routine 12/10/2024 11:48 PM EST HIGH SENSITIVITY TROPONIN I Routine 12/10/2024 11:48 PM EST CBC WITH AUTO DIFFERENTIAL Routine 12/10/2024 11:48 PM EST SARS COV2/INFLUENZA A/B AND RSV RNA QL NAAT Routine 12/10/2024 11:[address] ABDOMEN PELVIS W CONTRAST Routine 12/06/2024 1:20 PM EST URINALYSIS WITH REFLEX MICROSCOPIC Routine 12/06/2024 11:14 AM EST MAGNESIUM Routine 12/06/2024 9:42 AM EST LIPASE Routine 12/06/2024 9:42 AM EST COMPREHENSIVE METABOLIC PANEL Routine 12/06/2024 9:42 AM EST CBC WITH AUTO DIFFERENTIAL Routine 12/06/2024 9:42 AM EST SARS COV2/INFLUENZA A/B AND RSV RNA QL NAAT Routine 12/06/2024 9:42 AM EST IMMUNOGLOBULIN E Routine 11/08/2024 2:48 PM EST [...] 1:37 PM EST Cough in adult patient CASE PRESENTATION, DETAILED AND EXTENSIVE TREATMENT PLANNING Routine 09/28/2024 9:00 AM EST Dental plaque ORAL HYGIENE INSTRUCTIONS Routine 09/28/2024 9:00 AM EST Dental plaque PROPHYLAXIS - ADULT Routine 09/28/2024 9 :00 AM EST Dental plaque HM COLONOSCOPY Routine 07/11/2024 BITEWINGS - 4 [...] 08/27/2023 11:24 AM EDT Colon cancer screening INTRAORAL - COMPLETE SERIES OF RADIOGRAPHIC IMAGES Routine 07/06/2019 12:00 AM EDT ZZZ HISTORICAL HPV MRNA E6/E7 Routine 08/12/2018 10:57 AM EDT from Last 3 Months or Most Recently Relevant to Health Maintenance Results * XR Knee 1-2 Views Right (12/20/2024 7:45 AM EST) Anatomical Region Laterality Modality Lower Extremities, Knee Right Radiogra phic Imaging 12/20/2024 7:45 AM EST Narrative 12/20/2024 8:20 AM EST ? [facility] ?[address] ?[place] [address] ?XRay Report ? Signed ? Patient: Azra Cast ?MR#: [id number] ?? [id number] ? : 1975 ?Acct:[id number] ? Age/Sex: 49 / F ?ADM Date: 12/20/24 ? Loc: HO.ED ? Attending Dr: ? Ordering Physician: Boby Dykes MD ?? Date of Service: 12/20/24 ?? Procedure(s): XR knee RT 2V ?? Accession Number(s): [id number] ? cc: Shereen Latham MD; Boby Dykes MD ? EXAMINATION: ?? XR KNEE, RIGHT ? CLINICAL INFORMATION: ?? painful swollen ? COMPARISON: ?? 07/24/2024, 08/24/2023. ? TECHNIQUE: ?? Two views of the right knee. ? FINDINGS: ?? No fracture, dislocation, or suspicious bone lesion. Normal alignment. ?? There has been prior ACL repair. ?? Moderate tricompartmental joint space narrowing with extensive marginal ?? productive osteophytic changes. ? Large suprapatellar joint effusion present with probable calcified ?? loose bodies. ?? Soft tissues otherwise normal. ? XR/XR knee RT 2V ?? IMPRESSION: ?? 1. Moderate tricompartmental osteoarthrosis. ?? 2. Suprapatellar joint effusion with probable calcified loose bodies. ? Electronically signed by: ??Akbar Galicia MD ??12/20/2024 08:17 AM EST RP ? Dictated By: ?Akbar Galicia MD ? Signed By: ?<Electronically signed by Akbar Galicia MD in OV> ?12/20/24 0817 ? DD/ 0745 ? TD/TT: 12/20/24 0751 ? Radiographer Technologist: ? Procedure Note Donotuseinterpreter, Image - 12/20/2024 [place] [address] XRay Report Signed Patient: Maged Cast#: [id number] : 1975Acct:[id number] Age/Sex: 49 / FADM Date: 12/20/24 Loc: HO.ED Attending Dr: Ordering Physician: Boby Dykes MD Date of Service: 12/20/24 Procedure(s): XR knee RT 2V Accession Number(s): [id number] cc: Shereen Latham MD; Boby Dykes MD EXAMINATION: XR KNEE, RIGHT CLINICAL INFORMATION: painful swollen COMPARISON: 07/24/2024, 08/24/2023. TECHNIQUE: Two views of the right knee. FINDINGS: No fracture, dislocation, or suspicious bone lesion. Normal alignment. There has been prior ACL repair. Moderate tricompartmental joint space narrowing with extensive marginal productive osteophytic changes. Large suprapatellar joint effusion present with probable calcified loose bodies. Soft tissues otherwise normal. XR/XR knee RT 2V IMPRESSION: 1. Moderate tricompartmental osteoarthrosis. 2. Suprapatellar joint effusion with probable calcified loose bodies. Electronically signed by: Akbar Galicia MD 12/20/2024 08:17 AM EST RP Dictated By: Akbar Galicia MD Signed By: <Electronically signed by Akbar Galicia MD in OV> 12/20/24 0817 DD/ 0745 TD/TT: 12/20/24 0751 Radiographer Technologist: us [facility] External Provider IMG XR PROCEDURES Edited Result - Final * XR Chest 1 View (12/11/2024 12:34 AM EST) Anatomical Region Laterality Modality Chest Radiographic Celina ging 12/11/2024 12:3 4 AM EST Narrative 12/11/2024 12:37 AM EST ? [facility] ?[address] ?[place] [address] ?XRay Report ? Signed ? Patient: Cast,Azra ?MR#: [id number] ?? 3774 ? : 1975 ?Acct:[id number] ? Age/Sex: 49 / F ?ADM Date: 12/10/24 ? Loc: HO.ED ? Attending Dr: ? Ordering Physician: Sury Bustamante MD ?? Date of Service: 12/10/24 ?? Procedure(s): XR chest 1V ?? Accession Number(s): [id number] ? cc: Shereen Latham MD; Sury Bustamante MD ? CLINICAL HISTORY: chest pain cough ? 1 view chest x-ray ? Comparison: CR/WA - XR CHEST 2V - 10/31/24 17:50 EST ? Findings: ?? No consolidation or effusion. ?? Heart size is normal. ?? No acute fracture. ?? Right breast implant. ? IMPRESSION: ? 1. No acute cardiopulmonary findings. ? This document has been electronically signed by: [place] Vazquez MD on ?? 12/11/2024 00:34:57 ? Dictated By: ?Ashley Vazquez MD ? Signed By: ?<Electronically signed by [place] Vazquez MD in OV> ?12/11/246 ? DD/ 0034 ? TD/TT: 12/11/2433 ? Radiographer Technologist: ? Procedure Note Sumi, Image - 12/11/[address] [address] XRay Report Signed Patient: Maged Cast#: [id number] : 1975Acct:[id number] Age/Sex: 49 / FADM Date: 12/10/24 Loc: HO.ED Attending Dr: Ordering Physician: Sury Bustamante MD Date of Service: 12/10/24 Procedure(s): XR chest 1V Accession Number(s): [id number] cc: Shereen Latham MD; Sury Bustamante MD CLINICAL HISTORY: chest pain cough 1 view chest x-ray Comparison: CR/WA - XR CHEST 2V - 10/31/24 17:50 EST Findings: No consolidation or effusion. Heart size is normal. No acute fracture. Right breast implant. IMPRESSION: 1. No acute cardiopulmonary findings. This document has been electronically signed by: Ashley Vazquez MD on 12/11/2024 00:34:57 Dictated By: [place] Vazquez MD Signed By: <Electronically signed by [place] Vazquez MD in OV> 12/11/2435 DD/ TD/TT: 12/11/2433 Radiographer Technologist: [facility] External Provider IMG XR PROCEDURES Final Result * High Sensitivity Troponin I (12/10/2024 11:48 PM EST) Only the most recent of3 resultswithin the time period is included. TROPONIN I HIGH SENSITIVITY 8.0 <3.5 - 17.0 ng/L [facility] Comment:The Henriquez high sens itivity Troponin-I results should beused in conjunction with other diagnostic information suchas ECG, clinical observations and information, and patientsymptoms to aid in the diagnosis of [place]. 12/10/2024 11:4 8 PM EST 12/10/2024 11:53 PM EST Generic External Data Provider LAB BLOOD ORDERAB LES Final Result [facility] [address] [place] [phone] * SARS-CoV-2 RNA, Influenza A/B, and RSV RNA, Ql NAAT (12/10/2024 11:48 PM EST) Only the most recent of3 resultswithin the time period is included. Influenza A PCR NEGATIVE Negative [facility] Influenza B PCR NEGATIVE Negative [facility] Resp Syncy Virus RNA Qual PCR NEGATIVE Negative [facility] SARS COV2 PCR NEGATIVE Negative [facility] Comment:All test results mus t be [...] use by authorized laboratories.Testing performed on the [facility] [place] GeneXpert utilizingreal-time RT-PCR.All SARS CoV2 and positive influenza A/B results arereported to [facility]. 12/10/2024 11:4 8 PM EST 12/10/2024 11:53 PM EST Generic External Data Provider LAB MICROBIOLOGY - GENERAL ORDERABLES Final Result [facility] [address] [place] [phone] * (ABNORMAL) CBC auto differential (12/10/2024 11:48 PM EST) Only the most recent of4 resultswithin the time period is included. Pathologist [facility] White Blood Count 9.8 4.8 - 10.8 X10*3/uL [facility] Red Blood Count 3.75(L) 4.20 - 5.50 X10*6/uL [facility] Hemoglobin 11.0(L) 12.0 - 16.0 g/dl [facility] Hematocrit 33.6(L) 37.0 - 47.0 % [facility] Mean Corpuscular Volume 89.6 80.0 - 98.0 fL [facility] Mean Corpuscular Hemoglobin 29.3 27.0 - 33.0 pg [facility] Mean Corpuscular HGB Conc 32.7 31.0 - 35.0 g/dl [facility] Red Cell Distribution Width 13.7 11.0 - 16.0 % [facility] Platelet Count 304 160 - 400 X10*3/uL [facility] Mean Platelet Volume 10.5 9.4 - 12.3 fL [facility] Neutrophils Percent Auto 55.4 45 - 73 % [facility] Imm Gran Pct Auto 0.6(H) 0.0 - 0.4 % [facility] Lymphocytes Percent Auto 31.7 20 - 40 % [facility] Monocytes Percent Auto 8.7 2 - 11 % [facility] Eosinophils Percent Auto 2.7 0 - 4 % [facility] Basophils Percent Auto 0.9 0 - 2 % [facility] NRBC Pct Auto 0.0 0.0 - 0.2 /100WBC [facility] Neutrophils Absolute Auto 5.4 2.0 - 8.3 x10*3/uL [facility] Imm Gran Abs Auto 0.06(H) 0.00 - 0.03 X10*3/uL [facility] Lymphocytes Absolute Auto 3.1 1.2 - 4.9 X10*3/uL [facility] Monocytes Absolute Auto 0.9 0.1 - 1.2 X10*3/uL [facility] Eosinophils Absolute Auto 0.3 0.0 - 0.4 X10*3/uL [facility] Basophils Absolute Auto 0.1 0.0 - 0.2 X10*3/uL [facility] NRBC Abs Auto 0.000 0.0 - 0.012 X10*3/uL [facility] 12/10/2024 11:4 8 PM EST 12/10/2024 11:53 PM EST Generic External Data Provider LAB BLOOD ORDERAB LES Final Result Performing Organization Address [facility] Co de Phone Number [facility] [address] [place] [phone] * B Type Natriuretic Peptide (BNP) (12/10/2024 11:48 PM EST) [facility] B Type Natriuretic Peptide 14 <100 pg/mL [facility] Comment:For those patients w ho are being treated with Natrecor(nesiritide, recombinant BNP), BNP testing should beperformed at least two hours post treatment in order toensure that only endogenous levels of BNP are detected. 12/10/2024 11:4 8 PM EST 12/10/2024 11:53 PM EST 3 [employer] External Data Provider LAB BLOOD ORDERAB LES Final Result Performing Organization Address [facility] de Phone Number [facility] [address] [place] [phone] * (ABNORMAL) Comprehensive Metabolic Panel (12/10/2024 11:48 PM EST) Only the most recent of4 resultswithin the time period is included. [facility] Sodium 143 135 - 145 mmol/L [facility] Potassium 3.7 3.3 - 5.1 mmol/L [facility] Chloride 108 96 - 108 mmol/L [facility] Carbon Dioxide 23 22 - 29 mmol/L [facility] Anion Gap 16 12 - 20 [facility] Urea Nitrogen (BUN) 24(H) 9 - 16 mg/dL [facility] Creatinine, Serum 1.11 0.5 - 1.4 mg/dL [facility] Creatinine Clr Calc Pharmacy 69.3 [facility] Comment:Provided height and weight: 170.18 cm,90.7 kg.eGFR (calculated from the MDRD study equation) and eCrCl(calculated from the Cockcroft-Gault equation) are based ondifferent parameters and may not yield comparable results.If eCrCl result is absurd, please check patient'sheight/weight. Estimated Glomerular Filt Rate 52 [facility] Comment:Chronic Kidney Disea se: Estimated GFR < 60 mL/min/1.45z7Wnonjj Kidney Disease: Estimated GFR < 15 mL/min/1.73m2 Glucose 150(H) 60 - 115 mg/dL [facility] Calcium 9.3 8.4 - 10.2 mg/dL [facility] Bilirubin, Total 0.2 0.0 - 1.0 mg/dL [facility] Aspartate Amino Transferase 19 5 - 31 U/L [facility] Alanine Aminotransferase 14 0 - 31 U/L [facility] Total Protein 7.6 6.5 - 8.0 g/dL [facility] Albumin Level 4.0 3.5 - 5.0 g/dL [facility] Alkaline Phosphatase 87 39 - 117 U/L [facility] 12/10/2024 11:4 8 PM EST 12/10/2024 11:53 PM EST us Generic External Data Provider LAB BLOOD ORDERAB LES Final Result Performing Organization Address City/State/[facility] Co de Phone Number [facility] [address] [place] [phone] * CT Abdomen Pelvis w/ Contrast (12/06/2024 1:20 PM EST) Anatomical Region Laterality Modality Body, Pelvis, Abdomen Computed T omography 12/06/2024 1:20 PM EST Narrative 12/06/2024 2:00 PM EST ? [facility] ?[address] ?[place] [address] ? CT Scan Report ? Signed ? Patient: Segun,Azra ?MR#: [id number] ?? [id number] ? : 1975 ?Acct:[id number] ? Age/Sex: 49 / F ?ADM Date: 02/04/25 ? Loc: HO.ED ? Attending Dr: ? Ordering Physician: Leighann Ordonez DO ?? Date of Service: 12/06/24 ?? Procedure(s): CT abdomen pelvis w IV con ?? Accession Number(s): [id number] ? cc: Shereen Latham MD; Leighann Ordonez DO ? Report Number: ?? [id number]: Total DLP = ??712.00 mGy-cm ?? EXAMINATION: ?? CT ABDOMEN AND PELVIS WITH CONTRAST ? CLINICAL INFORMATION: ?? Right lower quadrant abdominal pain ? COMPARISON: ?? January 02, 2023. ? TECHNIQUE: ?? Multidetector volumetric images were obtained from the superior aspect ?? of the liver through the pubic symphysis following administration 85 mL ?? of Omnipaque 350 intravenous contrast. Sagittal and coronal reformatted ?? images were obtained on the technologist's workstation. ? Oral contrast: No ? This CT examination was performed using dose optimization techniques as ?? appropriate, variously including the following: ?? *Automated exposure control ?? *Adjustment of mA and/or kV according to patient size (this includes ?? techniques or standardized protocols for targeted exams where dose is ?? matched to indication/reason for exam; i.e. extremities or head) ?? *Use of iterative reconstruction technique. ?? DLP: 712 mGy centimeter. ? FINDINGS: ?? LUNG BASES: No acute airspace disease in the included lungs. ? LIVER, GALLBLADDER, AND BILIARY TREE: ? Liver measures 15 cm. No focal lesion. Portal vein, hepatic veins and ?? intrahepatic portion of the IVC are patent. No intrahepatic biliary ?? ductal dilatation. ?? No pericholecystic fluid collection or gallbladder wall thickening. ?? Common bile duct measures 4 mm. ? PANCREAS: No focal mass. No peripancreatic fluid collection. No main ?? pancreatic ductal dilatation. ? SPLEEN: 8 cm. No focal mass. ? ADRENAL GLANDS: No nodular lesions. ? KIDNEYS AND URETERS: ? No hydronephrosis. ?? No gross nephrolithiasis. ?? Subcentimeter low density/cystic lesions in the right kidney. ? BLADDER: Fluid-filled ? GASTROINTESTINAL TRACT: ? Appendix is normal. ?? Scattered diverticula throughout the left hemicolon. ?? Abundant stool. ?? No intestinal obstruction pattern. ?? No ascites. ?? No pneumoperitoneum. ?? No pneumatosis intestinalis. ? ABDOMINAL WALL: Fat-containing umbilical hernia and diastases abdominal ?? rectus muscles. Small fat-containing left inguinal hernia. ? LYMPH NODES: No gross lymphadenopathy. ? VASCULAR: Calcified plaques abdominal aorta wall without aneurysm or ?? dissection. ? PELVIC VISCERA: Absent uterus. ? OSSEOUS STRUCTURES: No acute fracture or listhesis. Spondylosis at L4-5 ?? and L5-S1. Bony pelvis is intact. Coxofemoral joints are intact with ?? normal alignment. ? Small pericardial effusion. ? CT/CT abdomen pelvis w IV con ?? IMPRESSION: ?? Fat-containing umbilical hernia. ?? Diverticular disease, left hemicolon. ?? Appendix is normal. ?? No hydronephrosis. ?? Small pericardial effusion. ? Fleischner guidelines were followed. ? Electronically signed by: ??Waldemar Trejo MD ??12/06/2024 01:58 PM ?? EST RP ? Dictated By: ?Waldemar Reeves MD ? Signed By: ?<Electronically signed by Waldemar Escobar MD in OV> ? 12/06/24 1358 ? DD/ 1320 ? TD/TT: 12/06/24 1333 ? Radiographer Technologist: ? Procedure Note Sumi, Image - 12/06/[address] [place] [address] [address] Scan Report Signed Patient: Maged Cast#: [id number] : 1975Acct:[id number] Age/Sex: 49 / FADM Date: 12/06/24 Loc: HO.ED Attending Dr: Ordering Physician: Leighann Ordonez DO Date of Service: 12/06/24 Procedure(s): CT abdomen pelvis w IV con Accession Number(s): [id number] cc: Shereen Latham MD; Leighann Ordonez DO Report Number: [id number]: Total DLP = 712.00 mGy-cm EXAMINATION: CT ABDOMEN AND PELVIS WITH CONTRAST CLINICAL INFORMATION: Right lower quadrant abdominal pain COMPARISON: January 02, 2023. TECHNIQUE: Multidetector volumetric images were obtained from the superior aspect of the liver through the pubic symphysis following administration 85 mL of Omnipaque 350 intravenous contrast. Sagittal and coronal reformatted images were obtained on the technologist's workstation. Oral contrast: No This CT examination was performed using dose optimization techniques as appropriate, variously including the following: *Automated exposure control *Adjustment of mA and/or kV according to patient size (this includes techniques or standardized protocols for targeted exams where dose is matched to indication/reason for exam; i.e. extremities or head) *Use of iterative reconstruction technique. DLP: 712 mGy centimeter. FINDINGS: LUNG BASES: No acute airspace disease in the included lungs. LIVER, GALLBLADDER, AND BILIARY TREE: Liver measures 15 cm. No focal lesion. Portal vein, hepatic veins and intrahepatic portion of the IVC are patent. No intrahepatic biliary ductal dilatation. No pericholecystic fluid collection or gallbladder wall thickening. Common bile duct measures 4 mm. PANCREAS: No focal mass. No peripancreatic fluid collection. No main pancreatic ductal dilatation. SPLEEN: 8 cm. No focal mass. ADRENAL GLANDS: No nodular lesions. KIDNEYS AND URETERS: No hydronephrosis. No gross nephrolithiasis. Subcentimeter low density/cystic lesions in the right kidney. BLADDER: Fluid-filled GASTROINTESTINAL TRACT: Appendix is normal. Scattered diverticula throughout the left hemicolon. Abundant stool. No intestinal obstruction pattern. No ascites. No pneumoperitoneum. No pneumatosis intestinalis. ABDOMINAL WALL: Fat-containing umbilical hernia and diastases abdominal rectus muscles. Small fat-containing left inguinal hernia. LYMPH NODES: No gross lymphadenopathy. VASCULAR: Calcified plaques abdominal aorta wall without aneurysm or dissection. PELVIC VISCERA: Absent uterus. OSSEOUS STRUCTURES: No acute fracture or listhesis. Spondylosis at L4-5 and L5-S1. Bony pelvis is intact. Coxofemoral joints are intact with normal alignment. Small pericardial effusion. CT/CT abdomen pelvis w IV con IMPRESSION: Fat-containing umbilical hernia. Diverticular disease, left hemicolon. Appendix is normal. No hydronephrosis. Small pericardial effusion. Fleischner guidelines were followed. Electronically signed by: Waldemar Trejo MD 12/06/2024 01:58 PM EST RP Dictated By: Waldemar Reeves MD Signed By: <Electronically signed by Waldemar Escobar MDin OV> 12/06/24 1358 DD/ 1320 TD/TT: 12/06/24 1333 Radiographer Technologist: us [facility] External Provider IMG CT PROCEDURES Final Result * Urinalysis w/reflex microscopic (12/06/2024 11:14 AM EST) Color Urine Yellow [facility] Appearance Urine Clear [facility] PH 6.0 5.0 - 9.0 [facility] Glucose Urine UA Negative Negative mg/dL [facility] Urine Blood Negative Negative [facility] Specific [place] - Urine 1.025 1.005 - 1.025 [facility] Urine Protein Negative Neg-Trace mg/dL [facility] Urine Ketones Negative Negative mg/dL [facility] Nitrite Urine Negative Negative [facility] Leukocyte Esterase Urine Negative Negative [facility] 12/06/2024 11:1 4 AM EST 12/06/2024 11:18 AM EST Narrative [facility] - 12/06/2024 11:22 AM EST Urine, Clean Catch Generic External Data Provider LAB URINE ORDERAB LES Final Result Performing Organization Address [facility] de Phone Number [facility] [address] [place] [phone] * Magnesium (12/06/2024 9:42 AM EST) Only the most recent of2 resultswithin the time period is included. Magnesium 1.6 1.6 - 2.6 mg/dL [facility] 12/06/2024 9:42 AM EST 12/06/2024 9:45 AM EST Generic External Data Provider LAB BLOOD ORDERAB LES Final Result Performing Organization Address City/State/[facility] Co de Phone Number [facility] [address] [place] [phone] * Lipase (12/06/2024 9:42 AM EST) Only the most recent of2 resultswithin the time period is included. Lipase 50 8 - 78 U/L [facility] 12/06/2024 9:42 AM EST 12/06/2024 9:45 AM EST Generic External Data Provider LAB BLOOD ORDERAB LES Final Result Performing Organization Address [facility] de Phone Number [facility] [address] [place] [phone] * Iron And Total Iron Binding Capacity (11/08/2024 2:48 PM EST) Pathologist [facility] Iron 66 30 - 160 mcg/dL [facility] Total Iron Binding Capacity 292 228 - 428 mcg/dL [facility] Percent Iron Saturation 23 15 - 50 % [facility] Unsaturated Iron Binding 226 ug/dL [facility] Blood Venous blood specimen / Unknown 11/08/2024 2:48 PM EST 11/08/2024 4:08 PM EST Shereen Latham MD LAB BLOOD ORDERABLES Final Result Performing Organization Address [facility] Co de Phone Number [facility] [address] [place] [phone] * Immunoglobulin E (11/08/2024 2:48 PM EST) Immunoglobulin E 17 <VL=914 kU/L [facility] Comment:THIS TEST WAS PERFOR MED AT:[employer] [place] [phone] BRINK MD 11/08/2024 2:48 PM EST 11/08/2024 4:08 PM EST Generic External Data Provider LAB BLOOD ORDERAB LES Final Result Performing Organization Address [facility]/ZIP Co de Phone Number [facility] [address] [place] [phone] * Ferritin (11/08/2024 2:48 PM EST) [facility] Ferritin 180 10 - 250 ng/mL [facility] Blood Venous blood specimen / Unknown 11/08/2024 2:48 PM EST 11/08/2024 4:08 PM EST Shereen Latham MD LAB BLOOD ORDERABLES Final Result Performing Organization Address [facility] Co de Phone Number [facility] [address] [place] [phone] * Vitamin B12 (11/08/2024 2:48 PM EST) [facility] Vitamin B12 499 200 - 900 pg/mL [facility] Comment:NORMAL 200-900 PG/ML INDETERMINATE 160-199 PG/ML DEFICIENT < 160 PG/ML Blood Venous blood specimen / Unknown 11/08/2024 2:48 PM EST 11/08/2024 4:08 PM EST Shereen Latham MD LAB BLOOD ORDERABLES Final Result Performing Organization Address [facility] de Phone Number [facility] [address] [place] [phone] * D Dimer High Sensitivity (10/31/2024 6:39 PM EST) [facility] D Dimer High Sensitivity <150 NG/ML [facility] Comment:D-DIMER HS REFERENCE RANGENote: Our [...] ORDERAB LES Final Result Performing Organization Address [facility] de Phone Number [facility] [address] [place] [phone] * Prothrombin Time-INR (10/31/2024 6:39 PM EST) Prothrombin Time 11.6 10.9 - 12.4 SEC [facility] INTERNATIONAL NORM RATIO 1.0 0.9 - 1.1 [facility] Comment:INTERNATIONAL NORMAL IZED RATIO (INR) [...] Performing Organization Address [facility] de Phone Number [facility] [address] [place] [phone] * XR Chest 2 Views (10/31/2024 6:15 PM EST) Anatomical Region Laterality Modality Chest Radiographic Celina ging 10/31/2024 6:15 PM EST Narrative 10/31/2024 6:17 PM EST ? [facility] ?[address] ?[place] [address] ?XRay Report ? Signed ? Patient: Cast,Azra ?MR#: [id number] ?? [id number] ? : 1975 ?Acct:[id number] ? Age/Sex: 48 / F ?ADM Date: 12/30/24 ? Loc: HO.ED ? Attending Dr: ? Ordering Physician: Tesfaye Allen ?? Date of Service: 10/31/24 ?? Procedure(s): XR chest 2V ?? Accession Number(s): [id number] ? cc: Shereen Latham MD; Tesfaye Allen [...] MD in OV> ?10/31/24 1816 ? DD/ 1815 ? TD/TT: 10/31/24 1815 ? Radiographer Technologist: ? Procedure Note Donmauro, Image - 10/31/2024 [place] [address] XRay Report Signed Patient: Maged Cast#: [id number] : 1975Acct:[id number] Age/Sex: 48 / FADM Date: 10/31/24 Loc: HO.ED Attending Dr: Ordering Physician: Tesfaye Allen Date of Service: 10/31/24 Procedure(s): XR chest 2V Accession Number(s): [id number] cc: Shereen Latham MD; Tesfaye Allen CLINICAL [...] in OV> 10/31/241815 DD/ 14 TD/TT: 10/31/241814 Radiographer Technologist: [facility] External Provider IMG XR PROCEDURES Final Result * CT Chest w/o Contrast (10/24/2024 4:44 PM EST) Anatomical Region Laterality Modality Body, Chest Computed Tomogra phy 10/24/2024 4:44 PM EST Narrative 11/14/2024 11:53 AM EST ? [facility] ?[address] ?[place] [address] ? CT Scan Report ? Signed ? Patient: Azra Cast ?MR#: [id number] ?? [id number] ? : 1975 ?Acct:[id number] ? Age/Sex: 48 / F ?ADM Date: 10/24/24 ? Loc: HO.CT ? Attending Dr: Sury Benitez TEMPORARY ADMINISTRATIVE ASSISTANT ? Ordering Physician: Sury Benitez NP ?? Date of Service: 10/24/24 ?? Procedure(s): CT chest wo IV con ?? Accession Number(s): [id number] ? cc: Shereen Latham MD; Sury Benitez NP ? Report Number: ?? [id number]: Total DLP = ??321.00 mGy-cm ?? EXAMINATION: [...] Exam submitted for review 11/14/2024 10:14 AM MUSHROOM CUTTER. ? FINDINGS: ? PULMONARY NODULES: ?? -There [...] DD/ 1644 ? TD/TT: 10/24/24 1657 ? Radiographer Technologist: ? Procedure Note Donalonzoter, Image - 11/14/[address] [place] [address] [address] Scan Report Signed Patient: Maged Cast#: [id number] : 1975Acct:[id number] Age/Sex: 48 / FADM Date: 10/24/24 Loc: HO.CT Attending Dr: Sury Benitez NP Ordering Physician: Sury Benitez NP Date of Service: 10/24/24 Procedure(s): CT chest wo IV con Accession Number(s): [id number] cc: Shereen Latham MD; Sury Benitez NP Report Number: [id number]: Total DLP = 321.00 mGy-cm EXAMINATION: CT [...] Exam submitted for review 11/14/2024 10:14 AM MUSHROOM CUTTER. FINDINGS: PULMONARY NODULES: -There are a few [...] by: Akbar Galicia MD 11/14/2024 11:50 AM [facility] Dictated By: Akbar Galicia MD Signed By: <Electronically signed by Akbar Galicia MD in OV> 11/14/24 1150 DD/ 1644 TD/TT: 10/24/24 1657 Radiographer Technologist: [facility] External Provider IMG CT PROCEDURES Edited Result - Final * ECG 12 lead (10/20/2024 4:28 PM EST) Narrative Tari Chance, TEMPORARY ADMINISTRATIVE ASSISTANT - 10/20/2024 4:28 PM EST HR 111 bpm, axis, interval, morphology normal. Sinus tachycardia ECG Tari Chance TEMPORARY ADMINISTRATIVE ASSISTANT ECG ORDERABLES Final Result * (ABNORMAL) Respiratory Viral Panel PCR (10/20/2024 2:00 PM EST) Adenovirus PCR Not Detected Not Detect. [facility] Bordetella pertussis PCR Not Detected Not Detect. [facility] Comment:Interpret results wi th caution. If B. pertussis isspecifically suspected, additional testing using analternate method is recommended. Bordetella parapertussis PCR Not Detected Not Detect. [facility] Chlamydia pneumoniae PCR Not Detected Not Detect. [facility] Coronavirus 229E PCR Not Detected Not Detect. [facility] Coronavirus HKU1 PCR Not Detected Not Detect. [facility] Coronavirus NL63 PCR Not Detected Not Detect. [facility] Coronavirus OC43 PCR Not Detected Not Detect. [facility] SARS-CoV-2 PCR Not Detected Not Detect. [facility] Comment:SARS-CoV-2 not detec zane by real-time RT-PCR.Note: If clinical suspicion for Sars-CoV-2 is high, continueto maintain precautions and consider repeat testing.Test results should be interpreted in the context ofclinical findings and other laboratory data.Rare polymorphisms exist that could lead to false-negativeor false-positive results. If results do not match theclinical findings, additional testing should be considered.Results reported to [facility].This test has been authorized by the FDA under the EmergencyUse Authorization (EUA) for use by authorized laboratories. Influenza A PCR Not Detected Not Detect. [facility] Influenza B PCR Not Detected Not Detect. [facility] Human metapneumovirus PCR Not Detected Not Detect. [facility] Rhino/Enterovirus PCR Detected(A) Not Detect. [facility] Mycoplasma pneumoniae PCR Not Detected Not Detect. [facility] Parainfluenza 1 PCR Not Detected Not Detect. [facility] Parainfluenza 2 PCR Not Detected Not Detect. [facility] Parainfluenza 3 PCR Not Detected Not Detect. [facility] Parainfluenza 4 PCR Not Detected Not Detect. [facility] RSV PCR Not Detected Not Detect. [facility] Resp Panel NA Note See Note H [facility] Comment:All results must be correlated [...] assay is performed by Multiplexed PCR, utilizing [employer] Array. Swab 10/20/2024 2:00 PM EST 10/20/2024 5:33 PM EST us Tari Chance TEMPORARY ADMINISTRATIVE ASSISTANT LAB BLOOD ORDERABLES Final Resu lt [facility] [address] [place] [phone] * Influenza B (ID NOW Rapid Molecular) (10/20/2024 1:39 PM EST) Influenza B Negative Negative, Indeterminate [facility] Swab 10/20/2024 1:39 PM EST Tari Chance TEMPORARY ADMINISTRATIVE ASSISTANT POINT OF CARE TEST ENTER/EDIT O RDERABLES Final Result [facility] [address] [place] [phone] * Influenza A (ID NOW Rapid Molecular) (10/20/2024 1:38 PM EST) [facility] Influenza A Negative Negative, Indeterminate [facility] Swab 10/20/2024 1:38 PM EST Tari Chance TEMPORARY ADMINISTRATIVE ASSISTANT POINT OF CARE TEST ENTER/EDIT O RDERABLES Final Result Performing Organization Address [facility] Co de Phone Number [facility] [address] [place] [phone] * POCT Rapid COVID Ag (10/20/2024 1:37 PM EST) [facility] Rapid COVID Ag Negative Swab 10/20/2024 1:37 PM EST Tari Chance TEMPORARY ADMINISTRATIVE ASSISTANT POINT OF CARE TEST ENTER/EDIT O RDERABLES Final Result * (ABNORMAL) Hm Colonoscopy (07/11/2024) [facility] Colonoscopy Abnormal( A) Normal Comment:Herberth Stokes MD ?tubular adenoma x 3 Herberth Stokes MD HEALTH MAINTENANCE Final Result * Hepatitis Panel, General (06/16/2024 8:22 AM EDT) [facility] Hepatitis A IgM Nonreactive Nonreactive [facility] Comment:IgM antibodies to VIRAMONTES V not detected; does not exclude earlyacute or recovered HAV infection. ~Hepatitis B Surface Antibody REACTIVE Nonreactive [facility] Comment:REACTIVE: > 11.99 mI U/mL Hepatitis B Core Antibody Nonreactive Nonreactive [facility] Hepatitis C Antibody Nonreactive Nonreactive [facility] Comment:Antibodies to HCV no t detected; does not exclude early acuteHCV infection. Hepatitis B Surface Ag Negative Negative [facility] Blood Venous blood specimen / Unknown 06/16/2024 8:22 AM EDT 06/16/2024 11:18 AM EDT Shereen Latham MD LAB BLOOD ORDERABLES Final Result Performing Organization Address [facility] Co de Phone Number [facility] [address] [place] [phone] * (ABNORMAL) Lipid Panel, Standard (06/16/2024 8:22 AM EDT) Triglycerides 223(H) <150 mg/dL [facility] Comment:Desirable Triglyceri de: less than 150 mg/dLBorderline High Triglyceride 150-199 mg/dLHigh Triglyceride: 200-499 mg/dLVery High Triglyceride: greater than or equal to 5OO mg/dL Cholesterol 194 <200 mg/dL [facility] Comment:Desirable Cholestero l: less than 200 mg/dLBorderline High Cholesterol: 200-239 mg/dLHigh Cholesterol: greater than 239 mg/dL LDL Cholesterol Calculated 106(H) <100 mg/dL [facility] Comment:Desirable LDL: less than 100 mg/dLNear Optimal/Above Optimal LDL: 110- 129 mg/dLBorderline High LDL: 130-159 mg/dLHigh LDL: 160-189 mg/dLVery High LDL: greater than or equal to 190 mg/dL HDL Cholesterol 44 >40 mg/dL [facility] Comment:Desirable HDL: great er than 40 mg/dL Note: This HDL assay may give artificially low results in patients with liver disease. Blood Venous blood specimen / Unknown 06/16/2024 8:22 AM EDT 06/16/2024 11:09 AM EDT Shereen Latham MD LAB BLOOD ORDERABLES Final Result Performing Organization Address [facility]/ZIP Co de Phone Number [facility] [address] [place] [phone] * HIV-1/2 Antigen and Antibodies, Fourth Generation, with Reflexes (02/24/2024 8:47 AM EDT) [facility] Signature HIV AB/AG Nonreactive Nonreactive [facility] Comment:HIV-1 p24 Ag and/or HIV-1/HIV-2 Ab not detected.A test result that is nonreactive does not exclude thepossibility of exposure to or infection with HIV-1 and/orHIV-2. Nonreactive results in this assay for individualswith prior exposure to HIV-1 and/or HIV-2 may be due toantigen and antibody levels that are below the limit ofdetection of this assay.The [employer] HIV Ag/Ab Combo assay result andsupplemental assay results should be interpreted inconjunction with the patient's clinical presentation,history and other laboratory results. If the results areinconsistent with clinical evidence, additional testing issuggested to confirm the result. Blood Venous blood specimen / Unknown 02/24/2024 8:47 AM EDT 02/24/2024 11:22 AM EDT Naomi De Jesus [facility] LAB BLOOD ORDERABLES Final Resul t [facility] [address] [place] [phone] * BI Mammogram Screening Tomosynthesis Left (08/27/2023 1:00 PM EDT) Anatomical Region Laterality Modality Breast Left Mammography 08/27/2023 1:00 PM EDT Narrative 09/14/2023 6:06 AM EST ? [facility] ? [address] ?[place] [address] ? Mammography Report ? Signed ? Patient: Segun,Azra ?MR#: [id number] ?? [id number] ? : 1975 ?Acct:[id number] ? Age/Sex: 47 / F ?ADM Date: 10/26/23 ? Loc: HO.MAMMO ? Attending Dr: Bhupinder Bennett MD ? Ordering Physician: Li Grande MD ?Results: 1Negat ?? dasia ? Date of Service: 08/27/23 ?Follow Up: 1 Year From Orig ?? inal Mammogram ? Procedure(s): MM tomosynthesis screening LT ?? Accession Number(s): [id number] ? cc: Bhupinder Bennett MD; Li Grande [...] by Fabiola Flores MD in OV> ? 09/14/ 0602 ? DD/ 1300 ? TD/TT: ? Radiographer Technologist: ? Procedure Note Donotuseinterpreter, Image - 09/14/2023 [facility] [address] [place] [address] [place] [address] Mammography Report Signed Patient: Nicolas CastR#: [id number] : 1975Acct:[id number] Age/Sex: 47 / FADM Date: 08/27/23 Loc: HO.MAMMO Attending Dr: Bhupinder Bennett MD Ordering Physician: Li Grande MDResults: 1Negat dasia Date of Service: 08/27/23Follow Up: 1 Year From Orig inal Mammogram Procedure(s): MM tomosynthesis screening LT Accession Number(s): [id number] cc: Bhupinder Bennett MD; Li Grande MD [...] in OV> 09/14/23 0602 DD/ 1300 TD/TT: Radiographer Technologist: [facility] External Provider IMG BI PROCEDURES Final Result * (ABNORMAL) Cologuard?? colon cancer screening (08/27/2023 11:24 AM EDT) Cologuard Result Positive( A) Negative 09/05/2023 10:16 PM EDT [employer] (CLIA #:[id number]) Comment: POSITIVE TEST RESULT. A positive Cologuard [...] (Felix Mccoy al, N Engl J Med 2014;370(14):9379-3950.) Cologuard may produce a false negative or false positive result (no colorectal cancer or precancerous polyp present at colonoscopy follow up). A negative Cologuard test result does not guarantee the absence of CRC or advanced adenoma (pre-cancer). The current Cologuard screening interval is every 3 years. ([place] [employer] and [place]. Multi-Society Task Force). Cologuard performance data in a 10,000 patient pivotal study using colonoscopy as the reference method can be accessed at the following location: [email or web address]/results. Additional description of the Cologuard test process, warnings and precautions can be found at www.[employer]PlanMe.com. Stool specimen (specimen) 08/27/2023 11:24 AM EDT 08/29/2023 6:48 AM EDT Shereen Latham MD LAB MOLECULAR DIAGNOSTICS ORDERABLES Final Result [employer] (CLIA #:[id number]) [address] [place] [address], * HPV mRNA E6/E7 (08/12/2018 10:57 AM EDT) HPV mRNA E6/E7 Not Detected NOT DETECTED [facility] Comment: This test was performed using the APTIMA(R) HPV Assay ([employer] This assay detects E6/E7 viral messenger RNA (mRNA) from 14 high-risk HPV types (16,18,31,33,35,39,45,51, 52,56,58,59,66,68). For additional information please refer to: http://education.[employer] Exhibition Display/faq/CCY235a1 (This link is being provided for informational/ educational purposes only.) The analytical performance characteristics of this assay have been determined by [employer] [place], [place]. The modifications have not been cleared or approved by the FDA. This assay has been validated pursuant to the CLIA regulations and is used for clinical purposes. Test Performed by [employer], [employer], [address] [place] [address] Dwaine Morelos M.D., Ph.D., Director of Laboratories , CLIA [id number] Please note: ??Effective 07/14/2016, HPV testing will be performed using [employer]'s APTIMA test which targets mRNA. Detecting mRNA instead of DNA, as in older methods, offers significant improvements in specificity. 08/12/2018 10:5 7 AM EDT us Shereen Latham MD HISTORICAL/NON ORDERABLE L ABS Final Result [facility] [address] from Last 3 Months or Most Recently [place] [address] Advance Directives Documents on File Type Date Recorded Patient School Psychological Examiner Expl anation Advance Directives and Living Will 07/05/2024 11:59 AM Health Care Proxy Care Teams Dairy And Food Laboratory Assistant Relationship Specialty Start Date End Date Shereen Latham MD [address] [place] [address] PCP - General Family Medicine 11/02/18 Nupur Bullock, PharmD 230 [place] [address] Pharmacist Internal Medicine 08/09/24 Sury Benitez [address] [place] [address] Dr [facility] [address] [place] [address] Pulmonary Disease 09/27/24 Nirali Madrid OD [address] [place] [address] Optometry 10/27/24 Li Grande MD [address] [place] [address] Hematology and Oncology 10/27/24 Anselmo Gates MD 10 [facility] [address] [place] [address] Orthopaedic Surgery 10/27/24 Margaret Holman 11 [facility] 3rd [place] [address] Cardiology 10/27/24 Herberth Stokes MD [address] [place] [address] 3[address] [place] [address] Gastroenterology 10/27/24 Pily Delaney Agronomy TechnicianPrinted Circuit Designer 07/22/24 Elie Vicky [facility] 12/29/24
--- OUTSIDE RECORDS SUMMARY | 2024-12-29 12:54 | XMS_ITS | Encounter Summary ---
Author Organization [employer] Address 75 [facility] [place] 7t [place] [address] Care Team Providers Care Drawing Frame Tender Name Role Phone Shereen Latham MD Primary Care Provider [phone] Nupur Bullock PharmD Unavailable Sury Benitez Unavailable [phone] Nirali Madrid OD Unavailable [phone] Li Grande MD Unavailable [phone] Anselmo Gates MD Unavailable Margaret Holman Unavailable Herberth Stokes MD Unavailable [phone] Reason for Visit * Reason Comments Med Refill Encounter Details Date Type Department Care Team (Late st Contact Info) Description 06/21/2024 Refill [facility] CHC MED & PEDS [address] [place], [place] [phone] Shereen Latham MD 230 [place] [address] Mild intermittent asthma, unspecified whether complicated; Pain [...] Info) Description 01/17/2025 3:00 PM EDT Nutrition [facility] DIABETES/NUTRITION 230 [place] [address] Ernestina Esteban, KATE [address] [place] [address] 03/29/2025 2:00 PM EDT Office Visit [facility] ADULT DENTAL [address] [place] [address] Heidi Jenny 230 [place] [address] documented as of this encounter Visit Diagnoses Diagnosis Mild intermittent asthma, unspecified whether complicated Pain Generalized pain documented in this encounter Additional Health Concerns Assessment Noted Time PHQ-9 Depression Total Score: 13 024 4:53 PM EDT documented as of this encounter Care Teams Drawing Frame Tender Relationship Specialty Start Date End Date Shereen Latham MD 230 [place] [address] PCP - General Family Medicine 11/02/18 Nupur Bullock PharmD 230 [place] [address] Pharmacist Internal Medicine 08/09/24 Sury Benitez [address] [place] [address] [address] Pulmonary Disease 09/27/24 Nirali Madrid OD [address] [place] [address] Optometry 10/27/24 Li Grande MD [address] [place] [address] Hematology and Oncology 10/27/24 Anselmo Gates MD 10 [facility] [address] [place] [address] Orthopaedic Surgery 10/27/24 Margaret Holman 11 [facility] 3rd [place] [address] Cardiology 10/27/24 Herberth Stokes MD [address] [place] [address] [place] [address] Gastroenterology 10/27/24 Pily Delaney Strap BucklerRehanger 07/22/24 Elie BRASHER [facility] Psychology 12/29/24 documented as of this encounter
--- OUTSIDE RECORDS SUMMARY | 2024-12-29 12:55 | XMS_ITS | Encounter Summary ---
Author Organization [employer] Address 75 [facility] 7t [place] [address] Care Team Providers Care Director Of Gift Planning Name Role Phone Shereen Latham MD Primary Care Provider [phone] Nupur Bullock PharmD Unavailable Sury Benitez Unavailable [phone] Nirali Madrid OD Unavailable Li Grande MD Unavailable [phone] Anselmo Gates MD Unavailable Margaret Holman Unavailable Herberth Stokes MD Unavailable [phone] Reason for Visit * Reason Onset Date Comments ER Follow-up 12/07/2024 Encounter Details Date Type Department Care Team (Late st Contact Info) Description 12/07/2024 Telephone [facility] MEDICINE 230 [place], [place] [phone] Shereen Latham MD 230 [place], [place] [phone] ER Follow-up Social History Tobacco Use Types Packs/Day [...] Telephone Encounter - Cira Martinez RN - 12/07/2024 12:14 PM EST TC placed to pt to f/u on [facility] ED visit on 12/06/2024 for right lower quadrant abdominal pain. Pt was diagnosed with muscle strain after labs, urine and CT scan was reassuring. Pt confirms that she was discharged with a muscle relaxer (Flexeril) and told to take Tylenol PRN for the pain. The pt was informed of scheduled f/u with PCP on 12/29/2024 and was agreeable to attending but would like PCP to look over lab results from the ED in the meantime. Pt advised that this request will be sent to Dr. Gipson's for review. * Telephone Encounter - Kalpesh Cordoba - 12/07/2024 9:37 AM EST Patient calling to report ED visit on : Date: 12/06/24 Hospital: [facility] Seen for: Flu Patient advised will forward to team nurse for follow up documented in this encounter Plan of Treatment Upcoming Encounters Date Type Department Care Team (Late st Contact Info) Description 01/17/2025 3:00 PM EDT Nutrition [facility] DIABETES/NUTRITION 230 [place] [address] Ernestina Esteban, KATE 230 [place] [address] 03/29/2025 2:00 PM EDT Office Visit [facility] ADULT DENTAL 230 [place] [address] Heidi, Jenny 230 [place] [address] documented as of this encounter Visit Diagnoses Not on filedocumented in this encounter Additional Health Concerns Assessment Noted Time PHQ-9 Depression Total Score: 13 024 4:53 PM EDT documented as of this encounter Care Teams Director Of Gift Planning Relationship Specialty Start Date End Date Shereen Latham MD [address] [place] [address] PCP - General Family Medicine 11/02/18 Nupur Bullock, CharleneD [address] [place] [address] Pharmacist Internal Medicine 08/09/24 Sury Benitez [address] [facility] [address] [place] [address] Pulmonary Disease 09/27/24 Lester MadridnSUSAN [address] [place] [address] Optometry 10/27/24 Li Grande MD [address] [place] [address] Hematology and Oncology 10/27/24 Asnelmo Gates MD [address] [facility] [address] [place] [address] Orthopaedic Surgery 10/27/24 Margaret Holman 11 [facility] 3rd [place] [address] Cardiology 10/27/24 Herberth Stokes MD 11 [facility] 3rd [place] [address] Gastroenterology 10/27/24 Pily Delaney Associate Professor Of KinesiologyJackhammer Splitter Operator 07/22/24 Elie BRASHER [facility] Psychology 12/29/24 documented as of this encounter
--- OUTSIDE RECORDS SUMMARY | 2024-12-29 12:55 | XMS_ITS | Encounter Summary ---
Author Organization [employer] Address 75 [facility] 7t [place] [address] Care Team Providers Care Assistant General Manager Name Role Phone Shereen Latham MD Primary Care Provider [phone] Nupur Bullock PharmD Unavailable Sury Benitez Unavailable [phone] Nirali Madrid OD Unavailable Li Grande MD Unavailable [phone] Anselmo Gates MD Unavailable Margaret Holman Unavailable Herberth Stokes MD Unavailable [phone] Encounter Details Date Type Department Care Team (Late st Contact Info) Description 12/20/2024 Orders Only [facility] External Provider, [facility] Social History Tobacco Use Types Packs/Day Years [...] Info) Description 01/17/2025 3:00 PM EDT Nutrition [facility] DIABETES/NUTRITION 230 [place] [address] Ernestina Esteban, RD 230 [place] [address] 03/29/2025 2:00 PM EDT Office Visit [facility] ADULT DENTAL 230 [place] [address] Jenny Gordon 230 [place] [address] documented as of this encounter Procedures Procedure Name Priority Date/Time Associated Diagnosis Comments XR KNEE 1-2 VIEWS RIGHT Routine 12/20/2024 7:45 AM EST documented in this encounter Results * XR Knee 1-2 Views Right (12/20/2024 7:45 AM EST) Anatomical Region Laterality Modality Lower Extremities, Knee Right Radiogra phic Imaging 12/20/2024 7:45 AM EST Narrative 12/20/2024 8:20 AM EST ? [facility] ?[address] ?[place] [address] ?XRay Report ? Signed ? Patient: Azra Cast ?MR#: [id number] ?? [id number] ? : 1975 ?Acct:[id number] ? Age/Sex: 49 / F ?ADM Date: 12/20/24 ? Loc: HO.ED ? Attending Dr: ? Ordering Physician: Boby Dykes MD ?? Date of Service: 12/20/24 ?? Procedure(s): XR knee RT 2V ?? Accession Number(s): [id number] ? cc: Shereen Latham MD; Boby Dykes [...] DD/ 0745 ? TD/TT: 12/20/24 0751 ? Glass Artist: ? Procedure Note Donotuseinterpreter, Image - 12/20/[address] [address] XRay Report Signed Patient: Maged Cast#: [id number] : 1975Acct:[id number] Age/Sex: 49 / FADM Date: 12/20/24 Loc: HO.ED Attending Dr: Ordering Physician: Boby Dykes MD Date of Service: 12/20/24 Procedure(s): XR knee RT 2V Accession Number(s): [id number] cc: Shereen Latham MD; Boby Dykes MD [...] Akbar Galicia MD 12/20/2024 08:17 AM EST Dictated By: Akbar Galicia MD Signed By: <Electronically signed by Akbar Galicia MD in OV> 12/20/24 0817 DD/ 0745 TD/TT: 12/20/24 0751 Glass Artist: [facility] External Provider IMG XR PROCEDURES Edited Result - Final documented in this encounter Visit Diagnoses Not on filedocumented in this encounter Additional Health Concerns Assessment Noted Time PHQ-9 Depression Total Score: 13 06/07/ 024 4:53 PM EDT documented as of this encounter Care Teams Assistant General Manager Relationship Specialty Start Date End Date Shereen Latham MD 230 [place] [address] PCP - General Family Medicine 11/02/18 Nupur Bullock, Pushpa [address] [place] [address] Pharmacist Internal Medicine 08/09/24 Sury Benitez [address] [place] [address] [address] [place] [address] Pulmonary Disease 09/27/24 Nirali Madrid OD [address] [place] [address] Optometry 10/27/24 Li Grande MD [address] [place] [address] Hematology and Oncology 10/27/24 Anselmo Gates MD 10 [facility] [address] [place] [address] Orthopaedic Surgery 10/27/24 Margaret Holman 11 [facility] 3rd [place] [address] Cardiology 10/27/24 Herberth Stokes MD 11 [facility] 3rd [place] [address] Gastroenterology 10/27/24 Pily Delaney Survey Research ManagerMachine Set Up 07/22/24 documented as of this encounter
--- OUTSIDE RECORDS SUMMARY | 2024-12-29 12:55 | XMS_ITS | Encounter Summary ---
Author Organization [employer] Address 75 [facility] 7t [place] [address] Care Team Providers Care Carpenter Repairer Name Role Phone Shereen Latham MD Primary Care Provider [phone] Nupur Bullock PharmD Unavailable Sury Benitez Unavailable [phone] Nirali Madrid OD Unavailable Li Grande MD Unavailable [phone] Anselmo Gates MD Unavailable Margaret Holman Unavailable Herberth Stokes MD Unavailable [phone] Encounter Details Date Type Department Care Team (Late st Contact Info) Description 12/10/2024 Orders Only GENERIC EXTERNAL DATA DEPARTMENT Provider, Generic External Data Social History Tobacco Use Types Packs/Day Years [...] Info) Description 01/17/2025 3:00 PM EDT Nutrition [facility] DIABETES/NUTRITION 230 [place] [address] Ernestina Esteban, RD 230 [place] [address] 03/29/2025 2:00 PM EDT Office Visit [facility] ADULT DENTAL 230 [place] [address] Jenny Gordon 230 [place] [address] documented as of this encounter Procedures Procedure Name Priority Date/Time Associated Diagnosis Comments XR CHEST 1 VIEW Routine 12/11/2024 12:34 AM EST HIGH SENSITIVITY TROPONIN I Routine 12/10/2024 11:48 PM EST SARS COV2/INFLUENZA A/B AND RSV RNA QL NAAT Routine 12/10/2024 11:48 PM EST CBC WITH AUTO DIFFERENTIAL Routine 12/10/2024 11:48 PM EST B TYPE NATRIURETIC PEPTIDE (BNP) Routine 12/10/2024 11:48 PM EST COMPREHENSIVE METABOLIC PANEL Routine 12/10/2024 11:48 PM EST documented in this encounter Results * XR Chest 1 View (12/11/2024 12:34 AM EST) Anatomical Region Laterality Modality Chest Radiographic Celina ging 12/11/2024 12:3 4 AM EST Narrative 12/11/2024 12:37 AM EST ? [facility] ?[address] ?[place] [address] ?XRay Report ? Signed ? Patient: Azra Cast ?MR#: [id number] ?? [id number] ? : 1975 ?Acct:[id number] ? Age/Sex: 49 / F ?ADM Date: 12/10/24 ? Loc: HO.ED ? Attending Dr: ? Ordering Physician: Sury Bustamante MD ?? Date of Service: 12/10/24 ?? Procedure(s): XR chest 1V ?? Accession Number(s): [id number] ? cc: Shereen Latham MD; Sury Bustamante MD ? CLINICAL HISTORY: chest pain cough ? 1 view chest x-ray ? Comparison: CR/PA - XR CHEST 2V - 12/30/24 17:50 EST ? Findings: ?? No consolidation or effusion. ?? Heart size is normal. ?? No acute fracture. ?? Right breast implant. ? IMPRESSION: ? 1. No acute cardiopulmonary findings. ? This document has been electronically signed by: Ashley Vazquez MD on ?? 12/11/2024 00:34:57 ? Dictated By: ?Ashley Vazquez MD ? Signed By: ?<Electronically signed by Ashley Vazquez MD in OV> ?12/11/2435 ? DD/ ? TD/TT: 02/09/25 0034 ? Supervisor Veneer: ? Procedure Note Donmauro, Image - 12/11/[address] [address] XRay Report Signed Patient: Maged Cast#: [id number] : 1975Acct:[id number] Age/Sex: 49 / FADM Date: 12/10/24 Loc: HO.ED Attending Dr: Ordering Physician: Sury Bustamante MD Date of Service: 12/10/24 Procedure(s): XR chest 1V Accession Number(s): [id number] cc: Shereen Latham MD; Sury Bustamante MD CLINICAL HISTORY: chest pain cough 1 view chest x-ray Comparison: CR/PA - XR CHEST 2V - 10/31/24 17:50 EST Findings: No consolidation or effusion. Heart size is normal. No acute fracture. Right breast implant. IMPRESSION: 1. No acute cardiopulmonary findings. This document has been electronically signed by: Ashley Vazquez MD on 12/11/2024 00:34:57 Dictated By: Ashley Vazquez MD Signed By: <Electronically signed by Ashley Vazquez MD in OV> 12/11/246 DD/ TD/TT: 12/11/24 0034 Supervisor Veneer: [facility] External Provider IMG XR PROCEDURES Final Result * SARS-CoV-2 RNA, Influenza A/B, and RSV RNA, Ql NAAT (12/10/2024 11:48 PM EST) Influenza A PCR NEGATIVE Negative [facility] Influenza B PCR NEGATIVE Negative [facility] Resp Syncy Virus RNA Qual PCR NEGATIVE Negative [facility] SARS COV2 PCR NEGATIVE Negative [facility] Comment:All test results mus t [...] use by authorized laboratories.Testing performed on the [employer]io GeneXpert utilizingreal-time RT-PCR.All SARS CoV2 and positive influenza A/B results arereported to [facility]. 12/10/2024 11:4 8 PM EST 12/10/2024 11:53 PM EST [employer] External Data Provider LAB MICROBIOLOGY - GENERAL ORDERABLES Final Result Performing Organization Address [facility] Co de Phone Number [facility] [address] [place] [phone] * B Type Natriuretic Peptide (BNP) (12/10/2024 11:48 PM EST) Pathologist [facility] B Type Natriuretic Peptide 14 <100 pg/mL [facility] Comment:For those patients w ho are being treated with Natrecor(nesiritide, recombinant BNP), BNP testing should beperformed at least two hours post treatment in order toensure that only endogenous levels of BNP are detected. 12/10/2024 11:4 8 PM EST 12/10/2024 11:53 PM EST Generic External Data Provider LAB BLOOD ORDERAB LES Final Result Performing Organization Address [facility] Co de Phone Number [facility] [address] [place] [phone] * (ABNORMAL) Comprehensive Metabolic Panel (12/10/2024 11:48 PM EST) [facility] Sodium 143 135 - 145 mmol/L [facility] Potassium 3.7 3.3 - 5.1 mmol/L [facility] Chloride 108 96 - 108 mmol/L [facility] Carbon Dioxide 23 22 - 29 mmol/L [facility] Anion Gap 16 12 - 20 [facility] Urea Nitrogen (BUN) 24(H) 9 - 16 mg/dL [facility] Creatinine, Serum 1.11 0.5 - 1.4 mg/dL [facility] Creatinine Clr Calc Pharmacy 69.3 [facility] Comment:Provided height and weight: 170.18 cm,90.7 kg.eGFR (calculated from the MDRD study equation) and eCrCl(calculated from the Cockcroft-Gault equation) are based ondifferent parameters and may not yield comparable results.If eCrCl result is absurd, please check patient'sheight/weight. Estimated Glomerular Filt Rate 52 [facility] Comment:Chronic Kidney Disea se: Estimated GFR < 60 mL/min/1.48y4Bredus Kidney Disease: Estimated GFR < 15 mL/min/1.73m2 Glucose 150(H) 60 - 115 mg/dL [facility] Calcium 9.3 8.4 - 10.2 mg/dL [facility] Bilirubin, Total 0.2 0.0 - 1.0 mg/dL [facility] Aspartate Amino Transferase 19 5 - 31 U/L [facility] Alanine Aminotransferase 14 0 - 31 U/L [facility] Total Protein 7.6 6.5 - 8.0 g/dL [facility] Albumin Level 4.0 3.5 - 5.0 g/dL [facility] Alkaline Phosphatase 87 39 - 117 U/L [facility] 12/10/2024 11:4 8 PM EST 12/10/2024 11:53 PM EST us Generic External Data Provider LAB BLOOD ORDERAB LES Final Result [facility] [address] [place] [address] [phone] * High Sensitivity Troponin I (12/10/2024 11:48 PM EST) TROPONIN I HIGH SENSITIVITY 8.0 <3.5 - 17.0 ng/L [facility] Comment:The Henriquez high sens itivity Troponin-I results should beused in conjunction with other diagnostic information suchas ECG, clinical observations and information, and patientsymptoms to aid in the diagnosis of OR. 12/10/2024 11:4 8 PM EST 12/10/2024 11:53 PM EST us Generic External Data Provider LAB BLOOD ORDERAB LES Final Result Performing Organization Address City/State/[facility] Co de Phone Number [facility] [address] [place] [phone] * (ABNORMAL) CBC auto differential (12/10/2024 11:48 PM EST) White Blood Count 9.8 4.8 - 10.8 X10*3/uL [facility] Red Blood Count 3.75(L) 4.20 - 5.50 X10*6/uL [facility] Hemoglobin 11.0(L) 12.0 - 16.0 g/dl [facility] Hematocrit 33.6(L) 37.0 - 47.0 % [facility] Mean Corpuscular Volume 89.6 80.0 - 98.0 fL [facility] Mean Corpuscular Hemoglobin 29.3 27.0 - 33.0 pg [facility] Mean Corpuscular HGB Conc 32.7 31.0 - 35.0 g/dl [facility] Red Cell Distribution Width 13.7 11.0 - 16.0 % [facility] Platelet Count 304 160 - 400 X10*3/uL [facility] Mean Platelet Volume 10.5 9.4 - 12.3 fL [facility] Neutrophils Percent Auto 55.4 45 - 73 % [facility] Imm Gran Pct Auto 0.6(H) 0.0 - 0.4 % [facility] Lymphocytes Percent Auto 31.7 20 - 40 % [facility] Monocytes Percent Auto 8.7 2 - 11 % [facility] Eosinophils Percent Auto 2.7 0 - 4 % [facility] Basophils Percent Auto 0.9 0 - 2 % [facility] NRBC Pct Auto 0.0 0.0 - 0.2 /100WBC [facility] Neutrophils Absolute Auto 5.4 2.0 - 8.3 x10*3/uL [facility] Imm Gran Abs Auto 0.06(H) 0.00 - 0.03 X10*3/uL [facility] Lymphocytes Absolute Auto 3.1 1.2 - 4.9 X10*3/uL [facility] Monocytes Absolute Auto 0.9 0.1 - 1.2 X10*3/uL [facility] Eosinophils Absolute Auto 0.3 0.0 - 0.4 X10*3/uL [facility] Basophils Absolute Auto 0.1 0.0 - 0.2 X10*3/uL [facility] NRBC Abs Auto 0.000 0.0 - 0.012 X10*3/uL [facility] 12/10/2024 11:4 8 PM EST 12/10/2024 11:53 PM EST us Generic External Data Provider LAB BLOOD ORDERAB LES Final Result Performing Organization Address City/State/[facility] Co de Phone Number [facility] [address] [place] [phone] documented in this encounter Visit Diagnoses Not on filedocumented in this encounter Additional Health Concerns Assessment Noted Time PHQ-9 Depression Total Score: 13 024 4:53 PM EDT documented as of this encounter Care Teams Carpenter Repairer Relationship Specialty Start Date End Date Shereen Latham MD [address] [place] [address] PCP - General Family Medicine 11/02/18 Nupur Bullock, CharleneD [address] [place] [address] Pharmacist Internal Medicine 08/09/24 Sury Benitez [address] [place] [address] [address] [place] [address] Pulmonary Disease 09/27/24 Julius, Nirali, OD [address] [place] [address] Optometry 10/27/24 Li Grande MD [address] [place] [address] Hematology and Oncology 10/27/24 Anselmo Gates MD [address] [place] [address] Orthopaedic Surgery 10/27/24 Margaret Holman [address] 3rd [place] [address] Cardiology 10/27/24 Herberth Stokes MD [address]rd [place] [address] Gastroenterology 10/27/24 Pily Delaney Industrial Electrical EngineerAutomatic Brine Mixer Operator 07/22/24 documented as of this encounter
--- OUTSIDE RECORDS SUMMARY | 2024-12-29 12:55 | XMS_ITS | Encounter Summary ---
Author Organization [employer] Address 75 [facility] 7t [place] [address] Care Team Providers Care Drywall Finishing Foreman Name Role Phone Shereen Latham MD Primary Care Provider [phone]- [phone] Nupur Bullock PharmD Unavailable Sury Benitez Unavailable [phone] Nirali Madrid OD Unavailable [phone] Li Grande MD Unavailable [phone] Anselmo Gates MD Unavailable Margaret Holman Unavailable Herberth Stokes MD Unavailable [phone] Reason for Visit * Reason Onset Date Comments Durable Medical Equipment 12/22/2024 chartprep 12/22/2024 Encounter Details Date Type Department Care Team (Late st Contact Info) Description 12/22/2024 Telephone [facility] MEDICINE [address] [place], [place] [phone] Shereen Latham MD [address] [place], [place] [phone] Durable Medical Equipment; chartprep Social History Tobacco Use Types Packs/Day Years [...] encounter Miscellaneous Notes * Telephone Encounter - Keira Escobar RN - 12/26/2024 3:20 PM EST Faxed signed DME packet to De[facility] as below * Telephone Encounter - Keira Escobar RN - 12/23/2024 2:10 PM EST Scripts generated and placed on PCP's desk. Pending signature. * Telephone Encounter - Racheal Miner MA - 12/22/2024 2:23 PM EST ..Chart Prep Labs: not applicable Images: not applicable Vaccines due: Shingles in pharmacy Due Referrals: Not Applicable Screenings: Not Applicable Overdue care gaps: Sbirt, SDOH, PHQ-9, and Oral Health * Telephone Encounter - Layton Jeff - 12/22/2024 10:10 AM EST Tc from pt requesting a Rollator walker with seat and breaks as well she needs a toilet raiser. documented in this encounter Plan of Treatment Upcoming Encounters Date Type Department Care Team (Late st Contact Info) Description 01/17/2025 3:00 PM EDT Nutrition [facility] DIABETES/NUTRITION [address] [place] [address] Ernestina Esteban, RD [address] [place] [address] 03/29/2025 2:00 PM EDT Office Visit [facility] ADULT DENTAL [address] [place] [address] Heidi, Jenny [address] [place] [address] documented as of this encounter Visit Diagnoses Not on filedocumented in this encounter Additional Health Concerns Assessment Noted Time PHQ-9 Depression Total Score: 13 024 4:53 PM EDT documented as of this encounter Care Teams Drywall Finishing Foreman Relationship Specialty Start Date End Date Shereen Latham MD [address] [place] [address] PCP - General Family Medicine 11/02/18 Nupur Bullock PharmD [address] [place] [address] Pharmacist Internal Medicine 08/09/24 Ana MaríaSury herron [address] [facility] 103 [place] [address] Pulmonary Disease 09/27/24 Nirali Madrid OD [address] [place] [address] Optometry 10/27/24 Li Grande MD 575 [place] [address] Hematology and Oncology 10/27/24 Anselmo Gates MD [address] [place] [address] Orthopaedic Surgery 10/27/24 Margaret Holman 11 [facility] 3rd [place] [address] Cardiology 10/27/24 Herberth Stokes MD 11 [facility] 3rd [place] [address] Gastroenterology 10/27/24 Pily Delaney Central Supply Technician SupervisorAuthorizer 07/22/24 documented as of this encounter
--- OUTSIDE RECORDS SUMMARY | 2024-12-29 12:55 | XMS_ITS | Encounter Summary ---
Author Organization [employer] Address 75 [facility] 7t [place] [address] Care Team Providers Care Ship Engineer Name Role Phone Shereen Latham MD Primary Care Provider [phone] Nupur Bullock PharmD Unavailable Sury Benitez Unavailable [phone] Nirali Madrid OD Unavailable [phone] Li Grande MD Unavailable [phone] Anselmo Gates MD Unavailable Margaret Holman Unavailable Herberth Stokes MD Unavailable [phone] Reason for Visit * Reason Onset Date Comments Medication Question 08/25/2024 Encounter Details Date Type Department Care Team (Late st Contact Info) Description 08/25/2024 Telephone [facility] MEDICINE [address] [place], [place] [phone] Shereen Latham MD [address] [place], [place] [phone] Medication Question Social History Tobacco Use Types [...] any questions you can contact pt at [phone]. documented in this encounter Plan of Treatment Upcoming Encounters Date Type Department Care Team (Late st Contact Info) Description 01/17/2025 3:00 PM EDT Nutrition [facility] DIABETES/NUTRITION [address] [place] [address] Ernestina Esteban, RD 230 [place] [address] 03/29/2025 2:00 PM EDT Office Visit [facility] ADULT DENTAL [address] [place] [address] Heidi, Jenny [address] [place] [address] documented as of this encounter Visit Diagnoses Not on filedocumented in this encounter Additional Health Concerns Assessment Noted Time PHQ-9 Depression Total Score: 13 024 4:53 PM EDT documented as of this encounter Care Teams Ship Engineer Relationship Specialty Start Date End Date Shereen Latham MD 230 [place] [address] PCP - General Family Medicine 11/02/18 Nupur Bullock PharmD [address] [place] [address] Pharmacist Internal Medicine 08/09/24 Sury Benitez [address] [place] [address] Dr Rust [address] [place] [address] Pulmonary Disease 09/27/24 Nirali Madrid OD 267 [place] [address] Optometry 10/27/24 Li Grande MD [address] [place] [address] Hematology and Oncology 10/27/24 Anselmo Gates MD [address] [place] [address] Orthopaedic Surgery 10/27/24 Margaret Holman [address] [place] [address] Cardiology 10/27/24 Herberth Stokes MD [address] [place] [address] Gastroenterology 10/27/24 Pily Delaney Batch OperatorDatabase Administration Project Manager 07/22/24 Elie BRASHER [facility] Psychology 12/29/24 documented as of this encounter
--- OUTSIDE RECORDS SUMMARY | 2024-12-29 12:55 | XMS_ITS | Clinical Summary ---
Author Organization [employer] [facility] it Address [address] [place] [address] Care Team Providers Care Mud Engineer Name Role Phone Shereen Latham MD Primary Care Provider [phone] Social History Tobacco Use Types Packs/Day Years [...] age to complete this topic Care Teams Mud Engineer Relationship Specialty Start Date End Date Shereen Latham MD [address] [place] [phone] PCP - General 01/13/1996
--- OUTSIDE RECORDS SUMMARY | 2024-12-29 12:55 | XMS_ITS | Encounter Summary ---
Author Organization [email or web address] Address 75 [facility] 7t [place] [address] Care Team Providers Care Director Corporate Communications Name Role Phone Shereen Latham MD Primary Care Provider [phone] Nupur Bullock PharmD Unavailable Sury Benitez Unavailable [phone] Nirali Madrid OD Unavailable Li Grande MD Unavailable [phone] Anselmo Gates MD Unavailable Margaret Holman Unavailable Herberth Stokes MD Unavailable [phone] Reason for Visit * Reason Comments Transition Of Care (Tcm) Encounter Details Date Type Department Care Team (Late st Contact Info) Description 12/12/2024 Patient Outreach [facility] MEDICINE [address] [place] [address] Shereen Latham MD [address] [place], [place] [phone] Transition Of Care (Tcm) Social History Tobacco [...] as of this encounter Progress Notes * Zaria Cano RN - 12/12/2024 9:28 AM EST Transition of Care Note Azra Cast is going through a recent transition of care. * Cira Martinez RN - 12/12/2024 9:28 AM EST Images from the original note were not included. Hospital Discharges and Admission for [facility] Type of Visit: Emergency Department Date of Admission/Visit: 12/10/24 Date of Discharge: 12/11/24 Facility: [facility] Diagnosis: Water Retention Disposition: Discharged Home Follow-Up Actions Follow-Up Needed: None/self-monitoring Follow-Up Outcome: Spoke to Patient Initial Contact Date: 12/12/24 Patient Contacted: Yes Patient Status: Unchanged The full discharge summary is Is available under encounters/interface Review Flowsheet More data exists [facility] Transition of Care Documentation Type of Visit Date of Admission/Visit Date of Discharge Facility Diagnosis Disposition 06/27/2024 9:20 AM Hospital Admission 06/22/2024 06/24/2024 [facility] CHF and Hypertensive urgency Discharged Home 07/07/2024 8:22 AM Emergency Department 07/06/2024 07/06/2024 [facility] SOB, chest tightness, palpitations Discharged Home 07/25/2024 11:31 AM Hospital Admission 07/24/2024 07/26/2024 [facility] Gout Discharged Home 07/29/2024 10:03 AM Hospital Admission 07/24/2024 07/26/2024 [facility] Gout Discharged Home 08/08/2024 8:19 AM Emergency Department 08/07/2024 08/07/2024 [facility] Right knee pain Discharged Home 08/08/2024 9:00 AM Emergency Department 08/07/2024 08/07/2024 [facility] Gout Discharged Home 09/14/2024 8:45 AM Emergency Department 09/13/2024 11:56 am 09/13/2024 5:50pm [facility] SOB chest pain Discharged Home 09/16/2024 2:00 PM Emergency Department 09/13/2024 11:56 am 09/13/2024 5:50pm [facility] SOB chest pain Discharged Home 10/03/2024 10:01 AM Emergency Department 10/02/2024 2:46 pm 10/02/2024 11:38 pm [facility] Headache CP SOB Discharged Home 11/01/2024 12:53 PM Emergency Department 10/31/2024 10/31/2024 [facility] CP, Nausea, tachycardia Discharged Home 11/22/2024 8:55 AM Emergency Department 11/21/2024 11/21/2024 [facility] knee pain hx yesterday Discharged Home 12/12/2024 9:28 AM Emergency Department 12/10/2024 12/11/2024 [facility] Water Retention Discharged Home Recent Visits Date Type Provider Dept 11/17/24 Office Visit Shereen Latham MD [facility] 11/09/24 Office Visit Shereen Latham MD [facility] Medicine 10/20/24 Office Visit Tari Chance NP [facility] 08/24/24 Office Visit Shereen Latham MD [facility] Medicine 07/13/24 Office Visit Shereen Latham MD [facility] Medicine 06/29/24 Office Visit Shereen Latham MD [facility] Medicine 06/20/24 Office Visit Abida Lobo MD [facility] Medicine 05/30/24 Office Visit Flor Diaz MD [facility] 05/11/24 Office Visit Juan J Kohler MD [facility] 04/25/24 Office Visit Junie Upton MD [facility] Medicine Showing recent visits within past 365 days with a meds authorizing provider and meeting all other requirements Future Appointments Date Type Provider Dept 12/29/24 Appointment Shereen Latham MD [facility] Medicine Showing future appointments within next 150 days with a meds authorizing provider and meeting all other requirements Patient was educated on hours of operation. documented in this encounter Plan of Treatment Upcoming Encounters Date Type Department Care Team (Late st Contact Info) Description 01/17/2025 3:00 PM EDT Nutrition [facility] DIABETES/NUTRITION [address] [place] [address] Ernestina Esteban, RD [address] [place] [address] 03/29/2025 2:00 PM EDT Office Visit [facility] ADULT DENTAL [address] [place] [address] Heidi, Jenny [address] [place] [address] documented as of this encounter Visit Diagnoses Not on filedocumented in this encounter Additional Health Concerns Assessment Noted Time PHQ-9 Depression Total Score: 13 024 4:53 PM EDT documented as of this encounter Care Teams Director Corporate Communications Relationship Specialty Start Date End Date Shereen Latham MD [address] [place] [address] PCP - General Family Medicine 11/02/18 Nupur Bullock, CharleneD 230 [place] [address] Pharmacist Internal Medicine 08/09/24 Sury Benitez [address] [place] [address] Dr [facility] 103 [place] [address] Pulmonary Disease 09/27/24 Nirali Madrid OD 267 [place] [address] Optometry 10/27/24 Li Grande MD [address] [place] [address] Hematology and Oncology 10/27/24 Anselmo Gates MD [address] [place] [address] Orthopaedic Surgery 10/27/24 Margaret Holman [address] 3rd [place] [address] Cardiology 10/27/24 eHrberth Stokes MD [address] [facility] [address] [place] [address] Gastroenterology 10/27/24 Pily Delaney Multi Disciplined Language AnalystAligning Inspector 07/22/24 documented as of this encounter
--- OUTSIDE RECORDS SUMMARY | 2024-12-29 12:55 | XMS_ITS | Encounter Summary ---
Author Organization [employer] Address 75 [facility] 7t [place] [address] Care Team Providers Care Fire Medic Name Role Phone Shereen Latham MD Primary Care Provider [phone] Nupur Bullock PharmD Unavailable Sury Benitez Unavailable [phone] Nirali Madrid OD Unavailable [phone] Li Grande MD Unavailable [phone] Anselmo Gates MD Unavailable Margaret Holman Unavailable Herberth Stokes MD Unavailable [phone] Reason for Visit * Reason Onset Date Comments Nurse Triage 12/22/2024 Encounter Details Date Type Department Care Team (Late st Contact Info) Description 12/22/2024 Telephone [facility] MEDICINE [address] [place], [place] [phone] Shereen Latham MD 230 [place], [place] [phone] Nurse Triage Social History Tobacco Use Types [...] encounter Miscellaneous Notes * Telephone Encounter - Daya Martínez LPN - 12/22/2024 8:57 AM EST Triage call returned to patient in regards to right foot pain. Patient without injury. History of Gout and seen in [facility] ED 12/20/24 for flare of gout in right knee. ( note in chart) Uric acid elevated.Sent home with Prednisone taper. Today's dose 40mg, Patient reports that she woke up this morning and pain has now localized from right knee to right outer foot from below 5th toe to ankle slight warmth no redness. Patient with appts for rheumatology 03/2025 and Ortho 02/03/25. Patient with increased difficulty with ambulation due to pain. Reports she has one Oxycodone left from ED as needed for pain. Patient is on daily Allopurinal, unable to tolerate colchicine per report. Patient also with concern of intermittent low right side pelvic/groin pain seen in ED on 12/06/24 ( note in chart) believed to be muscle strain and pain did resolve but returned last night No nausea or vomiting. Confirms she ate brownies with hazelnuts yesterday. Pain resolved after BM per patient. Patient would like PCP updated on recent concerns. Patient made aware that PCP is not on until Thursday in [facility] per current schedule. Disposition reviewed and patient in agreement to plan. Will return to ED for worsening symptoms of ankle pain redness or increased warmth, will continue Prednisone as ordered until completed. Will also return to ED for any constant low abdominal pelvic pain. Reviewed with patient home care recommendations, reasons to call back and symptoms that require immediate evaluation in UC or ER. Patient verbalized understanding and agrees. Patient requesting PCP be updated on status and to see if alternative plan may be indicated RE: Prednisone. Forwarded to team as FYI to follow up PRN Multiple (2) protocols were used on this call. Disposition for Call: See in Office or Video Visit Today Protocol Used: Foot Pain (Adult) Protocol-Based Disposition: See in Office or Video Visit Today Positive Triage Question: * Severe pain (e.g., excruciating, unable to do any normal activities) * All higher-acuity triage questions were negative Care Advice Discussed: * Pain Medicines * Reasons To Call Back - Swelling, redness, or fever occur - Severe pain not relieved by pain medicine - Pain lasts over 7 days - You become worse Protocol Used: Pelvic Pain - Female (Adult) Protocol-Based Disposition: Home Care Positive Triage Question: * Mild to Moderate pelvic pain lasting < 2 hours or comes and goes (cramps) * All higher-acuity triage questions were negative Care Advice Discussed: * Pass a Stool * Pain Medicines * Reasons To Call Back - Severe pain lasts over 1 hour - You become worse * Telephone Encounter - Hiren Bell - 12/22/2024 8:10 AM EST Symptom: Foot or Ankle Pain - Not From Injury Outcome: Talk to a nurse or provider within 15 minutes Reason: Can't walk (unless normally can't walk) The caller accepted this outcome. Contact pt at [phone] documented in this encounter Plan of Treatment Upcoming Encounters Date Type Department Care Team (Late st Contact Info) Description 01/17/2025 3:00 PM EDT Nutrition [facility] DIABETES/NUTRITION [address] [place] [address] Ernestina Esteban, KATE [address] [place] [address] 03/29/2025 2:00 PM EDT Office Visit [facility] ADULT DENTAL [address] [place] [address] Heidi, Jenny [address] [place] [address] documented as of this encounter Visit Diagnoses Not on filedocumented in this encounter Additional Health Concerns Assessment Noted Time PHQ-9 Depression Total Score: 13 024 4:53 PM EDT documented as of this encounter Care Teams Fire Medic Relationship Specialty Start Date End Date Shereen Latham MD [address] [place] [address] PCP - General Family Medicine 11/02/18 Nupur Bullock, Pushpa [address] [place] [address] Pharmacist Internal Medicine 08/09/24 Sury Benitez [address] [place] [address] [place] [address] [place] [address] Pulmonary Disease 09/27/24 Julius, NiraliSUSAN [address] [place] [address] Optometry 10/27/24 Li Grande MD [address] [place] [address] Hematology and Oncology 10/27/24 Anselmo Gates MD [address] [place] [address] Orthopaedic Surgery 10/27/24 Margaret Holman [address] 3rd [place] [address] Cardiology 10/27/24 Herberth Stokes MD [address]rd [place] [address] Gastroenterology 10/27/24 Pily Delaney Design AssistantBrim Flexer 07/22/24 Elie Vicky [facility] Psychology 12/29/24 documented as of this encounter
--- OUTSIDE RECORDS SUMMARY | 2024-12-29 12:55 | XMS_ITS | Encounter Summary ---
Author Organization [employer] Address 75 [facility] 7t [place] [address] Care Team Providers Care Associate Professor Of Archaeology Name Role Phone Shereen Latham MD Primary Care Provider [phone] Nupur Bullock PharmD Unavailable Sury Benitez Unavailable [phone] Nirali Madrid OD Unavailable Li Grande MD Unavailable [phone] Anselmo Gates MD Unavailable Margaret Holman Unavailable Herberth Stokes MD Unavailable [phone] Encounter Details Date Type Department Care Team (Late st Contact Info) Description 12/21/2024 3:30 PM EST Telemedicine [facility] MEDICINE [address] [place] [address] Nupur Bullock, PharmD [address] [place] [address] Preventative health care (Primary Dx) Social History Tobacco Use Types [...] Progress Notes * Nupur Bullock PharmD - 12/21/2024 3:30 PM EST Pharmacy Consult Visit Type: CDTM Pharmacist: Nupur Bullock, PharmD Azra Cast is a 49 y.o. year old patient here for follow up visit completed over the phone. Subjective History: General / Intake (updated 12/21/24) Allergies: is allergic to amoxicillin, sulfamethoxazole, trimethoprim, hydrocodone, and latex. Read/Write: Yes, in Mauritanian Recent Hospitalizations: Yes 11/21/24, 12/20/24 for gout flare Social History as reported by patient: Tobacco: Current 4-5 cigs/day (denies interest in tobacco cessation at this time) Alcohol: holidays (reports last drink one week ago) Caffeine: Denies Illicit drugs: Past 4 years ago Diet: Reports non-compliance with diet Exercise: irregularly Adherence / patient self-management Uses medboxes from [facility] pharmacy Reports satisfaction with medboxes Denies missed doses or removing medication Denies JESSICA to current treatment regimen OTC medication, vitamin, supplement use: denies Hypertension Prescribed prednisone and oxycodone 12/20/24 in the ED for gout flare, osteoarthrosis Denies currently SMBP as she reports suspicion of accuracy of home BP monitor and this causing stress Pertinent negatives include chest pain, head ache, blurry vision, dizziness Reports previous discontinuation of carvedilol as she felt was worsening anxiety; reports improvement with symptoms since discontinuation Objective History: Treatment history/considerations: PMH: Peripheral neuropathy [...] reported JESSICA of worsening anxiety Recent labs: FLP ordered 12/26/24 Lab Results Component Value Date ALT 14 12/10/2024 AST 19 12/10/2024 LDLCHOLCAL 106 (H) 06/16/2024 TRIG 223 (H) 06/16/2024 K 3.7 12/10/2024 NA 143 12/10/2024 VITB12 499 11/08/2024 MICROALBCREU 9.0 06/16/2024 CREATININE 1.11 12/10/2024 EGFR 52 12/10/2024 HGBA1C 5.5 02/24/2024 HGBA1C 5.9 09/22/2023 HGBA1C [...] Will revisit at follow up Preferred Pharmacy: [facility] - [address] [address] Assessment/Plan: Hypertension Pharmacotherapy: Furosemide 40mg once daily Losartan 25mg twice daily Spironolactone 12.5mg once daily Goals of Therapy per JNC 8: Achieve BP <140/90mmHg Plan: Per clinical pharmacology, furosemide has a potential to exacerbate gout due to potential decrease clearance of uric acid. Losartan and spironolactone have potential risk of gout exacerbation howeverlikelihood much lower. Depending on in office evaluation, consider decrease in furosemide dose and potential retrial of alternative beta lisa due to noted tachycardia (if patient agrees due to recent discontinuation of carvedilol due to patient reported JESSICA of anxiety). Follow up with CDTM in 4 weeks Education: Reviewed benefits of DASH diet [...] 01/17/2025 3:00 PM EDT Nutrition [facility] DIABETES/NUTRITION [address] [place] [address] Ernestina Esteban, RD [address] [place] [address] 03/29/2025 2:00 PM EDT Office Visit [facility] ADULT DENTAL [address] [place] [address] Heidi, Jenny [address] [place] [address] documented as of this encounter Visit Diagnoses Diagnosis Preventative health care- Primary Routine general medical examination at a health care facility documented in this encounter Additional Health Concerns Assessment Noted Time PHQ-9 Depression Total Score: 13 024 4:53 PM EDT documented as of this encounter Care Teams Associate Professor Of Archaeology Relationship Specialty Start Date End Date Shereen Latham MD [address] [place] [address] PCP - General Family Medicine 11/02/18 Nupur Bullock PharmD [address] [place] [address] Pharmacist Internal Medicine 08/09/24 Sury Benitez [address] [place] [address] Dr Y[address] [place] [address] Pulmonary Disease 09/27/24 Nirali Madrid SUSAN [address] [place] [address] Optometry 10/27/24 Li Grande MD [address] [place] [address] Hematology and Oncology 10/27/24 Anselmo Gates MD [address] [place] [address] Orthopaedic Surgery 10/27/24 Margaret Holman [address] 3rd [place] [address] Cardiology 10/27/24 Herberth Stokes MD [address] 3rd [place] [address] Gastroenterology 10/27/24 Pily Delaney Furniture TechnicianJanitorial Maintenance Worker 07/22/24 documented as of this encounter
--- OUTSIDE RECORDS SUMMARY | 2024-12-29 12:55 | XMS_ITS | Encounter Summary ---
Author Organization [employer] Address [address] [facility] 7t [place] [address] Care Team Providers Care Architectural Design Professor Name Role Phone Shereen Latham MD Primary Care Provider [phone] Nupur Bullock PharmD Unavailable Sury Benitez Unavailable [phone] Nirali Madrid OD Unavailable [phone] Li Grande MD Unavailable [phone] Anselmo Gates MD Unavailable Margaret Holman Unavailable Herberth Stokes MD Unavailable [phone] Reason for Visit * Reason Onset Date Comments Nurse Triage 01/25/2024 Referral 01/25/2024 Encounter Details Date Type Department Care Team (Late st Contact Info) Description 01/25/2024 Telephone [facility] MEDICINE [address] [place], [place] [phone] Shereen Latham MD [address] [place], [place] [phone] Nurse Triage; Referral Social History Tobacco Use [...] vary. Pt wants to be referred to [facility] [address] [place] [address]. [employer] will send to team to review [...] 01/17/2025 3:00 PM EDT Nutrition [facility] DIABETES/NUTRITION [address] [place] [address] Ernestina Esteban, RD [address] [place] [address] 03/29/2025 2:00 PM EDT Office Visit [facility] ADULT DENTAL [address] [place] [address] Heidi, Jenny [address] [place] [address] documented as of this encounter Visit Diagnoses Not on filedocumented in this encounter Additional Health Concerns Assessment Noted Time PHQ-9 Depression Total Score: 21 023 10:42 AM EST documented as of this encounter Care Teams Architectural Design Professor Relationship Specialty Start Date End Date Shereen Latham MD [address] [place] [address] PCP - General Family Medicine 11/02/18 Nupur Bullock, Pushpa [address] [place] [address] Pharmacist Internal Medicine 08/09/24 Dyloncharlene Sury [address] [place] [address] Dr [facility] [address] [place] [address] Pulmonary Disease 09/27/24 Nirali Madrid OD [address] [place] [address] Optometry 10/27/24 Li Grande MD [address] [place] [address] Hematology and Oncology 10/27/24 Anselmo Gates MD [address] [place] [address] Orthopaedic Surgery 10/27/24 Margaret Holman [address] [facility] 3rd [place] [address] Cardiology 10/27/24 Herberth Stokes MD 11 [facility] 3rd [place] [address] Gastroenterology 10/27/24 Pily Delaney Physician Coding SpecialistFamily Worker 07/22/24 Elie Vicky [facility] Psychology 12/29/24 documented as of this encounter
--- OUTSIDE RECORDS SUMMARY | 2024-12-29 12:55 | XMS_ITS | Encounter Summary ---
Author Organization [employer] Address 75 [facility] 7t [place] [address] Care Team Providers Care Doctor Of Osteopathy Name Role Phone Shereen Latham MD Primary Care Provider Nupur Bullock PharmD Unavailable Sury Benitez Unavailable [phone] Nirali Madrid OD Unavailable Li Grande MD Unavailable [phone] Anselmo Gates MD Unavailable Margaret Holman Unavailable Herberth Stokes MD Unavailable [phone] Encounter Details Date Type Department Care Team (Latest Contact Info) Description 12/14/2024 Travel Social History Tobacco Use Types Packs/Day [...] Info) Description 01/17/2025 3:00 PM EDT Nutrition [facility] DIABETES/NUTRITION [address] [place] [address] Ernestina Esteban, KATE [address] [place] [address] 03/29/2025 2:00 PM EDT Office Visit [facility] ADULT DENTAL [address] [place] [address] Jenny Gordon [address] [place] [address] documented as of this encounter Visit Diagnoses Not on filedocumented in this encounter Additional Health Concerns Assessment Noted Time PHQ-9 Depression Total Score: 13 024 4:53 PM EDT documented as of this encounter Care Teams Doctor Of Osteopathy Relationship Specialty Start Date End Date Shereen Latham MD [address] [place] [address] PCP - General Family Medicine 11/02/18 Nupur Bullock PharmD [address] [place] [address] Pharmacist Internal Medicine 08/09/24 Sury Benitez [address] [place] [address] Dr [facility] 103 [place] [address] Pulmonary Disease 09/27/24 Nirali Madrid OD [address] [place] [address] Optometry 10/27/24 Li Grande MD [address] [place] [address] Hematology and Oncology 10/27/24 Anselmo Gates MD [address] [place] [address] [address] [place] [address] Orthopaedic Surgery 10/27/24 Margaret Holman 11 [facility] 3rd [place] [address] Cardiology 10/27/24 Herberth Stokes MD 11 [facility] 3rd [place] [address] Gastroenterology 10/27/24 Pily Delaney Bond ClerkBracelet Former 07/22/24 documented as of this encounter
--- OUTSIDE RECORDS SUMMARY | 2024-12-29 12:55 | XMS_ITS | Encounter Summary ---
Author Organization [email or web address] Address 75 [facility] 7t [place] [address] Care Team Providers Care Batch Operator Name Role Phone Shereen Latham MD Primary Care Provider [phone] Nupur Bullock PharmD Unavailable Sury Benitez Unavailable [phone] Nirali Madrid OD Unavailable Li Grande MD Unavailable [phone] Anselmo Gates MD Unavailable Margaret Holman Unavailable Herberth Stokes MD Unavailable [phone] Encounter Details Date Type Department Care Team (Late st Contact Info) Description 07/27/2023 Orders Only [facility] MEDICINE [address] [place], [place] [phone] Shereen Latham MD [address] [place], [place] [phone] Hypomagnesemia Social History Tobacco Use Types Packs/Day [...] Info) Description 01/17/2025 3:00 PM EDT Nutrition [facility] DIABETES/NUTRITION [address] [place] [address] Ernestina Esteban, RD [address] [place] [address] 03/29/2025 2:00 PM EDT Office Visit [facility] ADULT DENTAL [address] [place] [address] Heidi Jenny [address] [place] [address] documented as of this encounter Visit Diagnoses Diagnosis Hypomagnesemia Disorders of magnesium metabolism documented in this encounter Additional Health Concerns Assessment Noted Time PHQ-9 Depression Total Score: 10 023 10:27 AM EDT documented as of this encounter Care Teams Batch Operator Relationship Specialty Start Date End Date Shereen Latham MD [address] [place] [address] PCP - General Family Medicine 11/02/18 Nupur Bullock PharmD [address] [place] [address] Pharmacist Internal Medicine 08/09/24 Sury Benitez [address] [place] [address] [place] [address] [place] [address] Pulmonary Disease 09/27/24 Nirali Madrid OD [address] [place] [address] Optometry 10/27/24 Li Grande MD [address] [place] [address] Hematology and Oncology 10/27/24 Anselmo Gates MD [address] [place] [address] Orthopaedic Surgery 10/27/24 Margaret Holman [address] 3rd [place] [address] Cardiology 10/27/24 Herberth Stokes MD [address]rd [place] [address] Gastroenterology 10/27/24 Pily Delaney Rn PalliativeManager Hydraulic 07/22/24 Elie BRASHER [facility] Psychology 12/29/24 documented as of this encounter
--- OUTSIDE RECORDS SUMMARY | 2024-12-29 12:55 | XMS_ITS | Encounter Summary ---
Author Organization [employer] Address 75 [facility] 7t [place] [address] Care Team Providers Care Branch Assistant Name Role Phone Shereen Latham MD Primary Care Provider [phone] Nupur Bullock PharmD Unavailable Sury Benitez Unavailable [phone] Nirali Madrid OD Unavailable Li Grande MD Unavailable [phone] Anselmo Gates MD Unavailable Margaret Holman Unavailable Herberth Stokes MD Unavailable [phone] Encounter Details Date Type Department Care Team (Late st Contact Info) Description 12/06/2024 Orders Only GENERIC EXTERNAL DATA DEPARTMENT [...] Info) Description 01/17/2025 3:00 PM EDT Nutrition [facility] DIABETES/NUTRITION [address] [place] [address] Ernestina Esteban, RD 230 [place] [address] 03/29/2025 2:00 PM EDT Office Visit [facility] ADULT DENTAL [address] [place] [address] Jenny Gordon [address] [place] [address] documented as of this encounter Procedures Procedure Name Priority Date/Time Associated Diagnosis Comments CT ABDOMEN PELVIS W CONTRAST Routine 12/06/2024 1:20 PM EST URINALYSIS WITH REFLEX MICROSCOPIC Routine 12/06/2024 11:14 AM EST SARS COV2/INFLUENZA A/B AND RSV RNA QL NAAT Routine 12/06/2024 9:42 AM EST CBC WITH AUTO DIFFERENTIAL Routine 12/06/2024 9:42 AM EST MAGNESIUM Routine 12/06/2024 9:42 AM EST LIPASE Routine 12/06/2024 9:42 AM EST COMPREHENSIVE METABOLIC PANEL Routine 12/06/2024 9:42 AM EST documented in this encounter Results * CT Abdomen Pelvis w/ Contrast (12/06/2024 1:20 PM EST) Anatomical Region Laterality Modality Body, Pelvis, Abdomen Computed T omography 12/06/2024 1:20 PM EST Narrative 12/06/2024 2:00 PM EST ? [facility] ?[address] ?[place] [address] ? CT Scan Report ? Signed ? Patient: Azra Cast ?MR#: [id number] ?? [id number] ? : 1975 ?Acct:[id number] ? Age/Sex: 49 / F ?ADM Date: 12/06/24 ? Loc: HO.ED ? Attending Dr: ? Ordering Physician: Leighann Ordonez DO ?? Date of Service: 12/06/24 ?? Procedure(s): CT abdomen pelvis w IV con ?? Accession Number(s): [id number] ? cc: Shereen Latham MD; Benton,Leighann DO ? Report Number: ?? [id number]: Total DLP = ??712.00 mGy-cm ?? EXAMINATION: [...] Waldemar Escobar MD in OV> ? 12/06/24 1238 ? DD/ 1320 ? TD/TT: 12/06/24 1333 ? Sole Seamer: ? Procedure Note Sumi, Image - 12/06/[address] [place] [address] [address] Scan Report Signed Patient: Maged Cast#: [id number] : 1975Acct:[id number] Age/Sex: 49 / FADM Date: 12/06/24 Loc: HO.ED Attending Dr: Ordering Physician: Leighann Ordonez DO Date of Service: 12/06/24 Procedure(s): CT abdomen pelvis w IV con Accession Number(s): [id number] cc: Shereen Latham MD; Leighann Ordonez DO Report Number: [id number]: Total DLP = 712.00 mGy-cm EXAMINATION: CT [...] Waldemar Trejo MD 12/06/2024 01:58 PM EST Dictated By: Waldemar Reeves MD Signed By: <Electronically signed by Waldemar Escobar MDin OV> 12/06/24 1358 DD/ 1320 TD/TT: 12/06/24 1333 Sole Seamer: [facility] External Provider IM CT PROCEDURES Final Result * Urinalysis w/reflex microscopic (12/06/2024 11:14 AM EST) Pathologist [facility] Color Urine Yellow [facility] Appearance Urine Clear [facility] PH 6.0 5.0 - 9.0 [facility] Glucose Urine UA Negative Negative mg/dL [facility] Urine Blood Negative Negative [facility] Specific [place] - Urine 1.025 1.005 - 1.025 [facility] Urine Protein Negative Neg-Trace mg/dL [facility] Urine Ketones Negative Negative mg/dL [facility] Nitrite Urine Negative Negative [facility] Leukocyte Esterase Urine Negative Negative [facility] 12/06/2024 11:1 4 AM EST 12/06/2024 11:18 AM EST Narrative [facility] - 12/06/2024 11:22 AM EST Urine, Clean Catch Generic External Data Provider LAB URINE ORDERAB LES Final Result Performing Organization Address [facility] Co de Phone Number [facility] [address] [place] [phone] * Magnesium (12/06/2024 9:42 AM EST) [facility] Magnesium 1.6 1.6 - 2.6 mg/dL [facility] 12/06/2024 9:42 AM EST 12/06/2024 9:45 AM EST Generic External Data Provider LAB BLOOD ORDERAB LES Final Result Performing Organization Address [facility] de Phone Number [facility] [address] [place] [phone] * (ABNORMAL) SARS-CoV-2 RNA, Influenza A/B, and RSV RNA, Ql NAAT (12/06/2024 9:42 AM EST) [facility] Influenza A PCR POSITIVE(A) Negative [facility] Influenza B PCR NEGATIVE Negative [facility] Resp Syncy Virus RNA Qual PCR NEGATIVE Negative [facility] SARS COV2 PCR NEGATIVE Negative [facility] Comment:All test results mus t [...] use by authorized laboratories.Testing performed on the [employer] GeneXpert utilizingreal-time RT-PCR.All SARS CoV2 and positive influenza A/B results arereported to [facility]. 12/06/2024 9:42 AM EST 12/06/2024 9:45 AM EST Generic External Data Provider LAB MICROBIOLOGY - GENERAL ORDERABLES Final Result Performing Organization Address [facility] Co de Phone Number [facility] [address] [place] [phone] * Lipase (12/06/2024 9:42 AM EST) Pathologist [facility] Lipase 50 8 - 78 U/L [facility] 12/06/2024 9:42 AM EST 12/06/2024 9:45 AM EST Generic External Data Provider LAB BLOOD ORDERAB LES Final Result Performing Organization Address [facility] de Phone Number [facility] [address] [place] [phone] * (ABNORMAL) Comprehensive Metabolic Panel (12/06/2024 9:42 AM EST) Pathologist [facility] Sodium 143 135 - 145 mmol/L [facility] Potassium 4.2 3.3 - 5.1 mmol/L [facility] Chloride 105 96 - 108 mmol/L [facility] Carbon Dioxide 24 22 - 29 mmol/L [facility] Anion Gap 18 12 - 20 [facility] Urea Nitrogen (BUN) 25(H) 9 - 16 mg/dL [facility] Creatinine, Serum 0.88 0.5 - 1.4 mg/dL [facility] Creatinine Clr Calc Pharmacy 87.0 [facility] Comment:Provided height and weight: 170.18 cm,89.7 kg.eGFR (calculated from the MDRD study equation) and eCrCl(calculated from the Cockcroft-Gault equation) are based ondifferent parameters and may not yield comparable results.If eCrCl result is absurd, please check patient'sheight/weight. Estimated Glomerular Filt Rate >60 [facility] Comment:Chronic Kidney Disea se: Estimated GFR < 60 mL/min/1.94g2Tgmshs Kidney Disease: Estimated GFR < 15 mL/min/1.73m2 Glucose 131(H) 60 - 115 mg/dL [facility] Calcium 9.0 8.4 - 10.2 mg/dL [facility] Bilirubin, Total 0.4 0.0 - 1.0 mg/dL [facility] Aspartate Amino Transferase 15 5 - 31 U/L [facility] Alanine Aminotransferase 12 0 - 31 U/L [facility] Total Protein 6.9 6.5 - 8.0 g/dL [facility] Albumin Level 3.9 3.5 - 5.0 g/dL [facility] Alkaline Phosphatase 83 39 - 117 U/L [facility] 12/06/2024 9:42 AM EST 12/06/2024 9:45 AM EST us Generic External Data Provider LAB BLOOD ORDERAB LES Final Result [facility] [address] [place] [phone] * (ABNORMAL) CBC auto differential (12/06/2024 9:42 AM EST) White Blood Count 7.6 4.8 - 10.8 X10*3/uL [facility] Red Blood Count 3.84(L) 4.20 - 5.50 X10*6/uL [facility] Hemoglobin 11.3(L) 12.0 - 16.0 g/dl [facility] Hematocrit 34.0(L) 37.0 - 47.0 % [facility] Mean Corpuscular Volume 88.5 80.0 - 98.0 fL [facility] Mean Corpuscular Hemoglobin 29.4 27.0 - 33.0 pg [facility] Mean Corpuscular HGB Conc 33.2 31.0 - 35.0 g/dl [facility] Red Cell Distribution Width 13.7 11.0 - 16.0 % [facility] Platelet Count 235 160 - 400 X10*3/uL [facility] Mean Platelet Volume 10.3 9.4 - 12.3 fL [facility] Neutrophils Percent Auto 53.6 45 - 73 % [facility] Imm Gran Pct Auto 0.3 0.0 - 0.4 % [facility] Lymphocytes Percent Auto 34.8 20 - 40 % [facility] Monocytes Percent Auto 8.0 2 - 11 % [facility] Eosinophils Percent Auto 2.6 0 - 4 % [facility] Basophils Percent Auto 0.7 0 - 2 % [facility] NRBC Pct Auto 0.0 0.0 - 0.2 /100WBC [facility] Neutrophils Absolute Auto 4.1 2.0 - 8.3 x10*3/uL [facility] Imm Gran Abs Auto 0.02 0.00 - 0.03 X10*3/uL [facility] Lymphocytes Absolute Auto 2.7 1.2 - 4.9 X10*3/uL [facility] Monocytes Absolute Auto 0.6 0.1 - 1.2 X10*3/uL [facility] Eosinophils Absolute Auto 0.2 0.0 - 0.4 X10*3/uL [facility] Basophils Absolute Auto 0.1 0.0 - 0.2 X10*3/uL [facility] NRBC Abs Auto 0.000 0.0 - 0.012 X10*3/uL [facility] 12/06/2024 9:42 AM EST 12/06/2024 9:45 AM EST us Generic External Data Provider LAB BLOOD ORDERAB LES Final Result [facility] [address] [place] [phone] documented in this encounter Visit Diagnoses Not on filedocumented in this encounter Additional Health Concerns Assessment Noted Time PHQ-9 Depression Total Score: 13 024 4:53 PM EDT documented as of this encounter Care Teams Branch Assistant Relationship Specialty Start Date End Date Shereen Latham MD [address] [place] [address] PCP - General Family Medicine 11/02/18 Nupur Bullock, CharleneD [address] [place] [address] Pharmacist Internal Medicine 08/09/24 Sury Benitez [address] [place] [address] Dr [facility] [address] [place] [address] Pulmonary Disease 09/27/24 Nirali Madrid OD [address] [place] [address] Optometry 10/27/24 Li Grande MD [address] [place] [address] Hematology and Oncology 10/27/24 Anselmo Gates MD [address] [place] [address] Orthopaedic Surgery 10/27/24 Margaret Holman [address] 3rd [place] [address] Cardiology 10/27/24 Herberth Stokes MD [address] [place] [address] Drive 3rd Floor Mariela AGUILA [address] Gastroenterology 10/27/24 Pily Delaney Business Rules DeveloperCriminal Judge 07/22/24 documented as of this encounter
--- OUTSIDE RECORDS SUMMARY | 2024-12-29 12:55 | XMS_ITS | Encounter Summary ---
Author Organization [employer] Address [address] 7[address] [place] [address] Care Team Providers Care Sociology Teacher Name Role Phone Shereen Latham MD Primary Care Provider [phone] Nupur Bullock PharmD Unavailable Sury Benitez Unavailable [phone] Nirali Madrid OD Unavailable Li Grande MD Unavailable [phone] Anselmo Gates MD Unavailable Margaret Holman Unavailable Herberth Stokes MD Unavailable [phone] Reason for Visit * Reason Onset Date Comments Nurse Triage 12/09/2024 Encounter Details Date Type Department Care Team (Late st Contact Info) Description 12/09/2024 Telephone [facility] MEDICINE [address] [place], [place] [phone] Shereen Latham MD [address] [place], [place] [phone] Nurse Triage Social History Tobacco Use Types [...] Telephone Encounter - Cira Martinez RN - 12/13/2024 9:54 AM EST TC placed to pt to inform that per PCP the pt should contact the electronic pagination system operator if a new nebulizer machine or solution is needed. Pt also advised that Dr. Fernandez will discuss recent ED visits and breathing treatments at next office appt on 12/29/2024. Pt stated understanding and had no further questions or concerns. * Telephone Encounter - Cira Martinez RN - 12/12/2024 11:44 AM EST TC placed to pt to f/u on triage call from 12/09/2024 in which the pt was experiencing increasing shortness of breath and chest tightness. Per [facility] ED discharge notes the pt had normal labs drawn and tested negative for influenza and COVID. O2 sats with ambulation was around 98%.. Pt was sent home with a diagnosis of acute dyspnea and no changes were made with current medications. Pt confirms that she is taking all prescribed inhalers but is in need of Albuterol 0.083% nebulizer solution. Pt confirmed that this is prescribed by her electronic pagination system operator and will call today for a refill. Pt has tried to get her own nebulizer machine but states she keeps getting denied by [facility] as she does not havethe chronic condition (COPD, Asthma) to justify the need. Pt is wondering if PCP can help with thisneed for a nebulizer machine. Pt informed that this information will be sent to PCP for review and advisement. Pt also reminded of next office appt on 12/29/2024. * Telephone Encounter - Daya Martínez LPN - 12/09/2024 12:50 PM EST Triage call returned to patient at this time no answer and voice mail left for patient to return call to [phone]. Patient reached on second call. Reports seen in ED for abdominal pain and was diagnosed with musclestrain and FLU. Patient since last night with increased shortness of breath and chest tightness. Has used neb rxtx x 2 yesterday. Patient with known CHF and reports decreased urinary output with use of Lasix. Has tight congested cough and feel short of breath worse with exertion.Advised increased use of nebulizer treatments with current flu. Feels unwell, is not smoking. No reported fever. Disposition reviewed and patient in agreement with plan. Declines [facility] at this time. Reports she will return to the ED for current concerns. Forwarded to PCP and team as FYI to follow up PRN Multiple (2) protocols were used on this call. Disposition for Call: Go to ED Now Protocol Used: Breathing Difficulty (Adult) Protocol-Based Disposition: Go to ED Now Positive Triage Question: * Moderate difficulty breathing (e.g., speaks in phrases, SOB even at rest, pulse 100-120) of new-onset or worse than normal * All higher-acuity triage questions were negative Care Advice Discussed: * Reasons To Call Back - You become worse Protocol Used: Influenza (Flu) Follow-up Call (Adult) Protocol-Based Disposition: Go to ED Now Positive Triage Question: * Chest pain (Exception: MILD central chest pain, present only when coughing.) * All higher-acuity triage questions were negative Care Advice Discussed: * Reasons To Call Back - You have more questions * Avoid Tobacco Smoke * Reasons To Call Back - Fever lasts over 3 days - Runny nose lasts over 10 days - Cough lasts over 3 weeks - Difficulty breathing occurs - You become worse * Telephone Encounter - Adrianne Frausto - 12/09/2024 12:41 PM EST Symptom: Chest Pain - Adult, ( feels out of breath) Outcome: Talk to a nurse or provider within 15 minutes Reason: Started within the past 3 days The caller accepted this outcome. [phone] documented in this encounter Plan of Treatment Upcoming Encounters Date Type Department Care Team (Late st Contact Info) Description 01/17/2025 3:00 PM EDT Nutrition [facility] DIABETES/NUTRITION [address] [place], [place] [phone] Ernestina Esteban, RD [address] [place], [place] [phone] 03/29/2025 2:00 PM EDT Office Visit [facility] ADULT DENTAL [address] [place] [address] Jenny Gordon [address] [place] [address] documented as of this encounter Visit Diagnoses Not on filedocumented in this encounter Additional Health Concerns Assessment Noted Time PHQ-9 Depression Total Score: 13 024 4:53 PM EDT documented as of this encounter Care Teams Sociology Teacher Relationship Specialty Start Date End Date Shereen Latham MD [address] [place] [address] PCP - General Family Medicine 11/02/18 Nupur Bullock, CharleneD [address] [place] [address] Pharmacist Internal Medicine 08/09/[address] Sury Benitez [address] [place] [address] [address] Pulmonary Disease 09/27/24 Nirali Madrid, SUSAN [address] [place] [address] Optometry 10/27/24 Li Grande MD [address] [place] [address] Hematology and Oncology 10/27/24 Anselmo Gates MD [address] [place] [address] Orthopaedic Surgery 10/27/24 Margaret Holman [address] [facility] 3rd [place] [address] Cardiology 10/27/24 Herberth Stokes MD [address] [facility] 3rd [place] [address] Gastroenterology 10/27/24 Pily Delaney Color ArtistRange Technician 07/22/24 documented as of this encounter
--- OUTSIDE RECORDS SUMMARY | 2024-12-29 12:55 | XMS_ITS | Encounter Summary ---
Author Organization [employer] Address [address] [facility] 7t [place] [address] Care Team Providers Care Overhead Irrigator Name Role Phone Shereen Latham MD Primary Care Provider [phone] Nupur Bullock PharmD Unavailable Sury Benitez Unavailable [phone] Nirali Madrid OD Unavailable Li Grande MD Unavailable [phone] Anselmo Gates MD Unavailable Margaret Holman Unavailable Herberth Stokes MD Unavailable [phone] Reason for Visit * Reason Onset Date Comments Med Refill 12/21/2024 Encounter Details Date Type Department Care Team (Late st Contact Info) Description 12/21/2024 Refill [facility] MED & PEDS [address] [place], [place] [phone] Shereen Latham MD [address] [place], [place] [phone] Pain Social History Tobacco Use Types Packs/Day [...] Info) Description 01/17/2025 3:00 PM EDT Nutrition [facility] DIABETES/NUTRITION [address] [place] [address] Ernestina Esteban, KATE [address] [place] [address] 03/29/2025 2:00 PM EDT Office Visit [facility] ADULT D[facility]AL [address] [place] [address] HeidiJenny castaneda [address] [place] [address] documented as of this encounter Visit Diagnoses Diagnosis Pain Generalized pain documented in this encounter Additional Health Concerns Assessment Noted Time PHQ-9 Depression Total Score: 13 024 4:53 PM EDT documented as of this encounter Care Teams Overhead Irrigator Relationship Specialty Start Date End Date Shereen Latham MD [address] [place] [address] PCP - General Family Medicine 11/02/18 Nupur Bullock, CharleneD [address] [place] [address] Pharmacist Internal Medicine 08/09/24 Sury Benitez [address] [place] [address] [address] Pulmonary Disease 09/27/24 Nirali Madrid, SUSAN [address] [place] [address] Optometry 10/27/24 Li Grande MD [address] [place] [address] Hematology and Oncology 10/27/24 Anselmo Gates MD [address] [place] [address] Orthopaedic Surgery 10/27/24 Margaret Holman [address] 3rd [place] [address] Cardiology 10/27/24 Herberth Stokes MD [address] 3rd [place] [address] Gastroenterology 10/27/24 Pily Delaney Formula WeigherBehavioral Health Care Manager 07/22/24 documented as of this encounter
--- OUTSIDE RECORDS SUMMARY | 2024-12-29 12:55 | XMS_ITS | Encounter Summary ---
Author Organization [employer] Address [address] [facility] 7t [place] [address] Care Team Providers Care Wheel And Pinion Inspector Name Role Phone Shereen Latham MD Primary Care Provider Nupur Bullock PharmD Unavailable Sury Benitez Unavailable [phone] Nirali Madrid OD Unavailable Li Grande MD Unavailable [phone] Anselmo Gates MD Unavailable Margaret Holman Unavailable Herberth Stokes MD Unavailable [phone] Encounter Details Date Type Department Care Team (Latest Contact Info) Description 12/21/2024 Travel Social History Tobacco Use Types Packs/Day [...] Info) Description 01/17/2025 3:00 PM EDT Nutrition [facility] DIABETES/NUTRITION [address] [place] [address] Ernestina Esteban, KATE [address] [place] [address] 03/29/2025 2:00 PM EDT Office Visit [facility] ADULT DENTAL [address] [place] [address] Jenny Gordon [address] [place] [address] documented as of this encounter Visit Diagnoses Not on filedocumented in this encounter Additional Health Concerns Assessment Noted Time PHQ-9 Depression Total Score: 13 024 4:53 PM EDT documented as of this encounter Care Teams Wheel And Pinion Inspector Relationship Specialty Start Date End Date Shereen Latham MD [address] [place] [address] PCP - General Family Medicine 11/02/18 Nupur Bullock PharmD [address] [place] [address] Pharmacist Internal Medicine 08/09/24 Sury Benitez [address] [place] [address] Dr [facility] [address] [place] [address] Pulmonary Disease 09/27/24 Nirali Madrid OD [address] [place] [address] Optometry 10/27/24 Li Grande MD [address] [place] [address] Hematology and Oncology 10/27/24 Anselmo Gates MD [address] [place] [address] [address] [place] [address] Orthopaedic Surgery 10/27/24 Margaret Holman 11 [facility] 3rd [place] [address] Cardiology 10/27/24 Herberth Stokes MD 11 [facility] 3rd [place] [address] Gastroenterology 10/27/24 Pily Delaney Technical TrainerNail Technician Teacher 07/22/24 documented as of this encounter
[2024-12-29 13:12] LABS: MANUAL DIFF FLAG NO
[2024-12-29 13:18] LABS: Basophils Absolute Auto 0.1 X10*3/uL (0.0-0.2); Basophils Percent Auto 0.7 % (0-2); Eosinophils Absolute Auto 0.1 X10*3/uL (0.0-0.4); Eosinophils Percent Auto 0.7 % (0-4); Hematocrit 36.4 % (37.0-47.0); Hemoglobin 11.4 g/dl (12.0-16.0); Imm Gran Abs Auto 0.25 X10*3/uL (0.00-0.03); Imm Gran Pct Auto 1.8 % (0.0-0.4); Lymphocytes Absolute Auto 2.6 X10*3/uL (1.2-4.9); Lymphocytes Percent Auto 18.9 % (20-40); Mean Corpuscular HGB Conc 31.3 g/dl (31.0-35.0); Mean Corpuscular Hemoglobin 28.7 pg (27.0-33.0); Mean Corpuscular Volume 91.7 fL (80.0-98.0); Mean Platelet Volume 10.2 fL (9.4-12.3); Monocytes Absolute Auto 1.1 X10*3/uL (0.1-1.2); Monocytes Percent Auto 7.8 % (2-11); Neutrophils Absolute Auto 9.5 x10*3/uL (2.0-8.3); Neutrophils Percent Auto 70.1 % (45-73); Platelet Count 370 X10*3/uL (160-400); Red Blood Count 3.97 X10*6/uL (4.20-5.50); Red Cell Distribution Width 14.8 % (11.0-16.0); White Blood Count 13.5 X10*3/uL (4.8-10.8)
[2024-12-29 13:26] LABS: Anion Gap 15 (12-20); Blood Urea Nitrogen 32 mg/dL (9-16); Calcium 9.3 mg/dL (8.4-10.2); Carbon Dioxide 23 mmol/L (22-29); Chloride 105 mmol/L (96-108); Cholesterol 197 mg/dL (<200); Estimated Glomerular Filt Rate > 60; Glucose Random 161 mg/dL (60-115); HDL Cholesterol 48 mg/dL (>40); LDL Cholesterol Calculated 111 mg/dL (<100); Magnesium 1.8 mg/dL (1.6-2.6); Potassium 4.1 mmol/L (3.3-5.1); Sodium 139 mmol/L (135-145); Triglycerides 192 mg/dL (<150); Uric Acid 5.8 mg/dL (2.4-5.7)
== END 2024-12-29 10:52 | disposition home or self-care (01) ==
LOC: HO.HHCL 10:51
PROVIDERS: Internal Medicine Medical Oncology; Visit Provider Family Medicine
DX: I10 Essential (primary) hypertension (principal); E83.42 Hypomagnesemia; M10.9 Gout, unspecified; C50.919 Malignant neoplasm of unspecified site of unspecified female breast
CPT/HCPCS: 36415; 80048; 80061; 83735; 84550; 85025

== ENCOUNTER 2025-01-19 15:04 | Outpatient (AMB) | payer MEDICAID, SELFPAY ==
[2025-01-19 15:13] VITALS: BP 100/70; PULSE 110; BMI 31.1
--- NOTE | 2025-01-19 15:13 | A.OFFVIS_ITS ---
Vital Signs 01/19/25 15:13 Height 5 ft 7 in Weight 198 lb 13.711 oz BMI 31.1 BP 100/70 Blood Pressure Location Rt brachial Position Sitting Pulse 110 H Pulse Source Monitor Intake Visit Reasons: CHF-SOB/Fatigue Product Safety Coordinator Required: No Allergies amoxicillin [AMOXICILLIN] Allergy (Intermediate, Verified 01/19/25 15:16) rash, rash/itching sulfamethoxazole [From BACTRIM] Allergy (Intermediate, Verified 01/19/25 15:16) RASH trimethoprim [From BACTRIM] Allergy (Intermediate, Verified 01/19/25 15:16) RASH hydrocodone [Hydrocodone] Allergy (Mild, Verified 01/19/25 15:16) ITCH ibuprofen [From Motrin] Allergy (Mild, Verified 01/19/25 15:16) UPSET STOMACH latex [Latex] Allergy (Mild, Verified 01/19/25 15:16) ITCH Medication List - Last Reconciled 01/19/25 by Margaret Holman CASH GRAIN FARMER-C acetaminophen (Tylenol Extra Strength) 500 mg PO Q6H PRN acetaminophen 500 mg PO Q6H PRN [ACL defiance brace n/a] albuterol sulfate 90 mcg/actuation 2 puffs inhalation Q4H PRN albuterol sulfate 2.5 mg (3 mL) inhalation Q4-6H PRN allopurinol 100 mg PO BID cetirizine 10 mg PO DAILY PRN cholecalciferol (vitamin D3) (Vitamin D3) 1 cap PO DAILY fluticasone propion-salmeterol 115-21 mcg/actuation (Advair HFA) 2 puffs inhalation Q12H folic acid 1 tab PO DAILY furosemide 40 mg See Protocol PO DAILY losartan 25 mg See Protocol PO BID magnesium oxide 400 mg PO BIDPC 30 days omeprazole 1 cap PO DAILY@0630 spironolactone 12.5 mg (1/2 x 25 mg) PO QAM 90 days thiamine HCl (vitamin B1) 1 tab PO DAILY HPI HPI CHF-SOB/Fatigue: Details: Azra is a 49-year-old female with past medical history of hypertension, alcohol use, cardiomyopathy who was not seen in our office between 10/15/2021 and 08/01/2024 following [facility] admission for decompensated heart failure. She was started on appropriate med management. Her echo at that time did show normal EF. Today she reports that yesterday she had discomfort in her left chest that radiated to her left arm. She describes it as being a pain, 6/10 that lasted a few hours. She took Tylenol and went to bed and when she woke up in the morning it was gone. She is noticing increasing shortness of breath in the last 2 weeks. She denies PND, orthopnea or edema. No heart palpitations, lightheadedness, presyncope, syncope, falls. She has been doing only light activities. She reports being under very high stress recently due to issues with her son. She has been taking her medications. [facility] Medical History Depression Anxiety and depression Lower back pain History of COVID-19 Uncontrolled hypertension Panic attack H/O ETOH abuse Anxiety History of low potassium Breast cancer Hypertension Surgical History History of carpal tunnel release Hx of tubal ligation History of breast lump/mass excision H/O: hysterectomy Family History Mother Heart disease Alzheimers disease Social History Household Members: None Housing: Apartment Housing Other:: 4th floor. No elevator Are you a primary child care development specialist to a significant other at home: No Do you presently have visiting nurse or other home services: Yes (Investigative Research Specialist twice daily) Alcohol intake: former Comment: 1:1 SI Patient Tobacco Use Status: Current someday Tobacco user Tobacco use type: Cigarette Cigarettes Per Day: 5 Years Smoked: 38YRS e-Cigarette/Vaping Use: Never Used Second Hand Smoke Exposure: Yes Advance Directives Date on File: 02/11/22 service: No Current occupational status: disabled Review of Systems Const All systems reviewed & are unremarkable except as noted in HPI and below ENT Denies dizziness Card Reports chest pain, Denies chest pain at rest, Denies chest pain with activity, Reports rapid heart rate, Denies pedal edema, Denies edema, Denies leg edema, Denies lightheadedness, Denies palpitations, Reports dyspnea, Reports dyspnea on exertion and Denies orthopnea Resp Denies cough, Reports dyspnea and Reports dyspnea on exertion GI Denies hematochezia and Denies change in stool character Musc Denies abnormal gait, Denies limited range of motion, Denies muscle cramps, Denies muscle weakness, Denies numbness, Denies radiating pain into limb, Denies stiffness and Denies tingling Neuro Denies abnormal gait, Denies dizziness, Denies numbness and Denies tingling Endo Denies palpitations Physical Exam Vital Signs: Last Vital Signs Pulse 110 H 01/19/25 15:13 BP 100/70 01/19/25 15:13 BMI result Body Mass Index 31.1 Const General: cooperative, healthy appearing, comfortable and no acute distress Orientation/consciousness: patient oriented x3 Neck Neck: Yes normal visual inspection and Yes no JVD Resp Effort & Inspection: normal respiratory effort Auscultation: clear to auscultation bilaterally, no rales, no rhonchi and no wheezes Cardio Rate: tachycardic Rhythm: regular rhythm Heart sounds: S1 normal heart sound present, S2 normal heart sound present, no gallops, no murmurs and no rubs Neuro General: patient oriented x3 Extrem General: Yes normal to inspection, No no pedal edema and No calf tenderness Psych Appearance: grossly normal Mental Status: mental status grossly normal Speech and movement: Normal speech and movement present Office Procedures EKG Details: Today, read by me, sinus tachycardia, can not exclude prior anterior infarct, rate 110, QTC 481 millisecond [id number], Complete Assessment & Plan Assessment & Plan (1) Chest discomfort: Code(s): R07.89 - Other chest pain Category: Medical Plan: Episode of chest discomfort yesterday. No chest discomfort at this visit. Reports of increasing shortness of breath in the last 2 weeks. EKG today shows sinus tachycardia, can not exclude prior anterior infarct, rate 110. Will send her for labs today including BNP, troponin, D-dimer. Will call her with results. Will check a limited echocardiogram to reassess EF since she has had cardiomyopathy in the past. Nuclear stress test is pending. Will ask that the test date be moved up. Currently it is scheduled in March. She stop carvedilol since she did not like how it made her feel. Will start on metoprolol XL 25 mg daily. Continue losartan, Aldactone, Lasix. Cardiology follow-up 1 month, sooner if needed. Emergency care if needed for symptoms. - labs reviewed prior to completion of this note. BNP, troponin and D-dimer all normal. Patient notified. (2) (HFpEF) heart failure with preserved ejection fraction: Code(s): I50.30 - Unspecified diastolic (congestive) heart failure Category: Medical Plan: Echocardiogram done 10/18/2021 had shown EF 30-35%, mild LVH. She did follow with our office again until 07/2024. Last echo 06/23/2024 during [facility] heart failure admission, showed EF 55-60%, small loculated effusion over the left ventricle. She does not appear fluid overloaded on exam today but does report shortness of breath. Checking labs as above. Continue current meds including Lasix, Aldactone, losartan. Will be starting on metoprolol XL. Signs and symptoms of heart failure reviewed with her. (3) Hypertension: Code(s): I10 - Essential (primary) hypertension Category: Medical Qualifiers: Hypertension type: unspecified Qualified Code(s): I10 - Essential (primary) hypertension Plan: Blood pressure low today. She believes she may have doubled up on her losartan yesterday. (4) Dyspnea: Code(s): R06.00 - Dyspnea, unspecified Category: Medical Plan: As above Plan Time spent on chart review, documentation, interview and assessment Orders: Orders B Type Natriuretic Peptide Today I50.30 - Unspecified diastolic (congestive) heart failure Troponin-I High Sensitivity Today R07.89 - Other chest pain D Dimer High Sensitivity Today R06.00 - Dyspnea, unspecified, R07.89 - Other chest pain Coding Level of Care Code Est Pt Level 4 (07971) Complex EM visit Add On G2211 Diagnoses Chest discomfort R07.89 (HFpEF) heart failure with preserved ejection fraction I50.30 Hypertension I10 Hypertension type: unspecified Dyspnea R06.00 CPT Codes EKG - CPT: 37672-[id number], Complete ([id number]) Time Spent (min) 36
--- OUTSIDE RECORDS SUMMARY | 2025-01-19 17:27 | XMS_ITS | Encounter Summary ---
Author Organization [employer] Address [address] [facility] 7t [place] [address] Care Team Providers Care Loading Dock Hand Name Role Phone Shereen Latham MD Primary Care Provider [phone] Nupur Bullock PharmD Unavailable Sury Benitez Unavailable [phone] Nirali Madrid OD Unavailable Li Grande MD Unavailable [phone] Anselmo Gates MD Unavailable Margaret Holman Unavailable Herberth Stokes MD Unavailable [phone] Reason for Visit * Reason Comments Med Refill Encounter Details Date Type Department Care Team (Late st Contact Info) Description 06/21/2024 Refill [facility] MED & PEDS [address] [place], [place] [phone] Shereen Latham MD [address] [place] [address] Mild intermittent asthma, unspecified whether complicated; Pain [...] Care Team (Late st Contact Info) Description 01/24/2025 1:00 PM EDT Clinical Support [facility] DIABETES/NUTRITION [address] [place] [address] Ernestina Esteban, KATE [address] [place] [address] 03/29/2025 2:00 PM EDT Office Visit [facility] ADULT DENTAL [address] [place] [address] Heidi, Jenny [address] [place] [address] documented as of this encounter Visit Diagnoses Diagnosis Mild intermittent asthma, unspecified whether complicated Pain Generalized pain documented in this encounter Additional Health Concerns Assessment Noted Time PHQ-9 Depression Total Score: 13 024 4:53 PM EDT documented as of this encounter Care Teams Loading Dock Hand Relationship Specialty Start Date End Date Shereen Latham MD [address] [place] [address] PCP - General Family Medicine 11/02/18 Nupur Bullock, CharleneD [address] [place] [address] Pharmacist Internal Medicine 08/09/24 Sury Benitez [address] [place] [address] [address] Pulmonary Disease 09/27/24 Nirali Madrid OD [address] [place] [address] Optometry 10/27/24 Li Grande MD [address] [place] [address] Hematology and Oncology 10/27/24 Anselmo Gates MD 10 [facility] 203 [place] [address] Orthopaedic Surgery 10/27/24 Margaret Holman [address] [place] [address] [address] [facility] [place] [address] Cardiology 10/27/24 Herberth Stokes MD [address] [place] [address] [place] [address] Gastroenterology 10/27/24 Pily Delaney Humanities TeacherLaboratory Animal Care Veterinarian 07/22/24 Elie BRASHER [facility] Psychology 12/29/24 documented as of this encounter
--- OUTSIDE RECORDS SUMMARY | 2025-01-19 17:27 | XMS_ITS | Encounter Summary ---
Author Organization [employer] Address [address] [facility] 7t [place] [address] Care Team Providers Care Prop Worker Name Role Phone Shereen Latham MD Primary Care Provider [phone] Nupur Bullock PharmD Unavailable Sury Benitez Unavailable [phone] Nirali Madrid OD Unavailable [phone] Li Grande MD Unavailable [phone] Anselmo Gates MD Unavailable Margaret Holman Unavailable Herberth Stokes MD Unavailable [phone] Encounter Details Date Type Department Care Team (Late st Contact Info) Description 10/22/2023 Orders Only [facility] MEDICINE [address] [place], [place] [phone] Shereen Latham MD [address] [place], [place] [phone] Vitamin D deficiency Social History Tobacco Use [...] Description 01/24/2025 1:00 PM EDT Clinical Support [facility] DIABETES/NUTRITION [address] [place] [address] [place] [address] 03/29/2025 2:00 PM EDT Office Visit [facility] ADULT DENTAL [address] [place] [address] Heidi, Jenny [address] [place] [address] documented as of this encounter Visit Diagnoses Diagnosis Vitamin D deficiency documented in this encounter Additional Health Concerns Assessment Noted Time PHQ-9 Depression Total Score: 21 023 10:42 AM EST documented as of this encounter Care Teams Prop Worker Relationship Specialty Start Date End Date Shereen Latham MD [address] [place] [address] PCP - General Family Medicine 11/02/18 Nupur Bullock, Pushpa [address] [place] [address] Pharmacist Internal Medicine 08/09/24 Sury Benitez [address] [place] [address] Dr [facility] 103 [place] [address] Pulmonary Disease 09/27/24 Nirali Madrid, SUSAN [address] [place] [address] Optometry 10/27/24 Li Grande MD [address] [place] [address] Hematology and Oncology 10/27/24 Anselmo Gates MD [address] [facility] [address] [place] [address] Orthopaedic Surgery 10/27/24 Margaret Holman 11 [facility] 3rd [place] [address] Cardiology 10/27/24 Herberth Stokes MD 11 [facility] 3rd [place] [address] Gastroenterology 10/27/24 Pily Delaney Back SewerMotorcyles Final Inspector 07/22/24 Elie BRASHER [facility] 12/29/24 documented as of this encounter
--- OUTSIDE RECORDS SUMMARY | 2025-01-19 17:27 | XMS_ITS | Encounter Summary ---
Author Organization [employer] Address 75 [facility] 7t [place] [address] Care Team Providers Care Medical And Scientific Illustrator Name Role Phone Shereen Latham MD Primary Care Provider [phone] Nupur Bullock PharmD Unavailable Sury Benitez Unavailable [phone] Nirali Madrid OD Unavailable Li Grande MD Unavailable [phone] Anselmo Gates MD Unavailable Margaret Holman Unavailable Herberth Stokes MD Unavailable [phone] Reason for Visit * Reason Onset Date Comments Appointment Request 01/16/2025 Encounter Details Date Type Department Care Team (Late st Contact Info) Description 01/16/2025 Telephone [facility] [address] [place], [place] [phone] Shereen Latham MD 230 [place], [place] [phone] Appointment Request Social History Tobacco Use Types Packs/Day Years [...] encounter Miscellaneous Notes * Telephone Encounter - Stacey Khan MD - 01/19/2025 3:39 PM EDT Referred * Telephone Encounter - Keira Escobar RN - 01/19/2025 1:17 PM EDT Telephone call placed to pt who reports ongoing lump located on left outer breast 3 o'clock location. States that she has had this evaluated several times. 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 States was referred to [facility] but heard that there is an [facility] location in our building ([facility] Is wondering if she can be referred there instead as it is more convenient for her. Diagnostic mammo requires location of pain or mass. Please obtain the information so that PCP or covering provider can order. Thank you * Telephone Encounter - Violetta Mackey MA - 01/19/2025 11:33 AM EDT Called pt to clarify that Dr. Latham wants to see her in 4 months (around 04/28/25) per last office visit note. Pt is aware that she is on the recall list for April and will receive a call to schedule that appt. Pt also stated that she left a message two days ago regarding mammogram. [facility] Dr. Latham needs to send a mammo diagnostic order instead of a regular mammogram order. I assured pt that I would document it and someone would call her when completed. * Telephone Encounter - Hiren Bell - 01/16/2025 2:07 PM EDT TC from pt requesting to schedule Appt with pcp. Pt states that Noa wanted to see her after 6 weeks to discuss some results. Contact pt at [phone] documented in this encounter Plan of Treatment Upcoming Encounters Date Type Department Care Team (Late st Contact Info) Description 01/24/2025 1:00 PM EDT Clinical Support [facility] DIABETES/NUTRITION [address] [place] [address] [place], [place] [phone] 03/29/2025 2:00 PM EDT Office Visit [facility] ADULT DENTAL [address] [place] [address] Jenny Gordon 230 [place] [address] documented as of this encounter Visit Diagnoses Not on filedocumented in this encounter Additional Health Concerns Assessment Noted Time PHQ-9 Depression Total Score: 22 025 10:17 AM EST documented as of this encounter Care Teams Medical And Scientific Illustrator Relationship Specialty Start Date End Date Shereen Latham MD 230 [place] [address] PCP - General Family Medicine 11/02/18 Nupur Bullock, CharleneD 230 [place] [address] Pharmacist Internal Medicine 08/09/24 Sury Benitez [address] [place] [address] Dr [facility] 103 [place] [address] Pulmonary Disease 09/27/24 Nirali Madrid OD [address] [place] [address] Optometry 10/27/24 Li Grande MD [address] [place] [address] Hematology and Oncology 10/27/24 Anselmo Gates MD [address] [place] [address] Orthopaedic Surgery 10/27/24 Margaret Holman [address] 3rd [place] [address] Cardiology 10/27/24 Herberth Stokes MD 11 [facility] 3rd [place] [address] Gastroenterology 10/27/24 Pily Delaney Aircraft Inspection Record ClerkPackage Dyer 07/22/[address] [facility] Psychology 12/29/24 documented as of this encounter
--- OUTSIDE RECORDS SUMMARY | 2025-01-19 17:27 | XMS_ITS | Encounter Summary ---
Author Organization [employer] Address 75 [facility] 7t [place] [address] Care Team Providers Care Clipper Operator Name Role Phone Shereen Latham MD Primary Care Provider [phone] Nupur Bullock PharmD Unavailable Sury Benitez Unavailable [phone] Nirali Madrid OD Unavailable [phone] Li Grande MD Unavailable [phone] Anselmo Gates MD Unavailable Margaret Holman Unavailable Herberth Stokes MD Unavailable [phone] Reason for Visit * Reason Comments Med Refill Encounter Details Date Type Department Care Team (Late st Contact Info) Description 01/12/[address] [facility] CHC MED & PEDS [address] [place], [place] [phone] Shereen Latham MD 230 [place] [address] Benign essential hypertension Social History Tobacco Use [...] Description 01/24/2025 1:00 PM EDT Clinical Support [facility] DIABETES/NUTRITION 230 [place] [address] [place] [address] 03/29/2025 2:00 PM EDT Office Visit [facility] ADULT DENTAL 230 [place] [address] Jenny Gordon 230 [place] [address] documented as of this encounter Visit Diagnoses Diagnosis Benign essential hypertension Essential hypertension, benign documented in this encounter Additional Health Concerns Assessment Noted Time PHQ-9 Depression Total Score: 22 025 10:17 AM EST documented as of this encounter Care Teams Clipper Operator Relationship Specialty Start Date End Date Shereen Latham MD 230 [place] [address] PCP - General Family Medicine 11/02/18 Nupur Bullock, CharleneD 230 [place] [address] Pharmacist Internal Medicine 08/09/24 Sury Benitez [address] [place] [address] Dr [facility] 103 [place] [address] Pulmonary Disease 09/27/24 Nirali Madrid OD 267 [place] [address] Optometry 10/27/24 Li Grande MD [address] [place] [address] Hematology and Oncology 10/27/24 Anselmo Gates MD [address] [place] [address] Orthopaedic Surgery 10/27/[address] 3rd [place] [address] Cardiology 10/27/24 Herberth Stokes MD 11 [facility] 3rd [place] [address] Gastroenterology 10/27/24 Pily eDlaney Water Resources EngineerBariatric Nurse 07/22/24 Elie BRASHER [facility] Psychology 12/29/24 documented as of this encounter
--- OUTSIDE RECORDS SUMMARY | 2025-01-19 17:27 | XMS_ITS | Encounter Summary ---
Author Organization [employer] Address 75 [facility] 7t [place] [address] Care Team Providers Care Master Sheet Clerk Name Role Phone Shereen Latham MD Primary Care Provider Nupur Bullock PharmD Unavailable Sury Benitez Unavailable [phone] Nirali Madrid OD Unavailable Li Grande MD Unavailable [phone] Anselmo Gates MD Unavailable Margaret Holman Unavailable Herberth Stokes MD Unavailable [phone] Reason for Referral * Consultation (Routine) - Closed Specialty Diagnoses / Procedures Referred By Walter t Referred To Contact Obstetrics and Gynecology Diagnoses Women's annual routine gynecological examination Stacey Khan MD 230 [place] [address] Phone: tel: fax: [facility] Women? s Services [address] 5th Floor [address] (Main Hospital Entrance) [place], [place] Phone: tel: fax: Referral ID Status Reason Start Date Expiration Date V isits Requested Visits Authorized [id number] Closed Specialty Services Required 01/19/2025 01/19/2026 9 9 Encounter Details Date Type Department Care Team (Late st Contact Info) Description 01/19/2025 Orders Only [facility] MEDICINE 230 [place] [address] Stacey Khan MD [address] [place] [address] Women's annual routine gynecological examination (Primary Dx) Social History Tobacco Use Types [...] Description 01/24/2025 1:00 PM EDT Clinical Support [facility] DIABETES/NUTRITION 230 [place] [address] Ernestina Esteban, RD 230 [place] [address] 03/29/2025 2:00 PM EDT Office Visit [facility] ADULT DENTAL 230 [place] [address] Heidi, Jenny 230 [place] [address] Scheduled Referrals Name Type Priority Associated Diagnoses Orde r Schedule Referral to Obstetrics / Gynecology Outpatient Referral Routine Women's annual routine gynecological examination Expected: 01/19/2025 (Approximate), Expires: 01/19/2026 documented as of this encounter Procedures Procedure Name Priority Date/Time Associated Diagnosis Comments D DIMER HIGH SENSITIVITY Routine 01/19/2025 4:33 PM EDT Women's annual routine gynecological examination documented in this encounter Results * D Dimer High Sensitivity (01/19/2025 4:33 PM EDT) D Dimer High Sensitivity <150 NG/ML [facility] Comment:D-DIMER HS REFERENCE RANGENote: Our assay reports D-Dimer Units (D- DU).The cut-off value for venous thromboembolic (VTE) disease is230 ng/mL. This value has a very high negative predictivevalue when the patient has a low to moderate clinicalprobability of VTE.The upper limit of normal is 243 ng/mL. 01/19/2025 4:33 PM EDT 01/19/2025 4:34 PM EDT us Generic External Data Provider LAB BLOOD ORDERAB LES Final Result [facility] [address] [place] [address] [phone] documented in this encounter Visit Diagnoses Diagnosis Women's annual routine gynecological examination- Primary documented in this encounter Additional Health Concerns Assessment Noted Time PHQ-9 Depression Total Score: 22 025 10:17 AM EST documented as of this encounter Care Teams Master Sheet Clerk Relationship Specialty Start Date End Date Shereen Latham MD 230 [place] [address] PCP - General Family Medicine 11/02/18 Nupur Bullock PharmD 230 [place] [address] Pharmacist Internal Medicine 08/09/24 Sury Benitez [address] [facility] [address] [facility] 103 [place] [address] Pulmonary Disease 09/27/24 Nirali Madrid OD [address] [place] [address] Optometry 10/27/24 Li Grande MD [address] [place] [address] Hematology and Oncology 10/27/24 Anselmo Gates MD [address] [facility] [place] [address] Orthopaedic Surgery 10/27/24 Margaret Holman 11 [facility] 3rd [place] [address] Cardiology 10/27/24 Herberth Stokes MD 11 [facility] 3rd [place] [address] Gastroenterology 10/27/24 Pily Delaney Stem FrazerCore Finisher 07/22/24 Elie BRASHER [facility] Psychology 12/29/24 documented as of this encounter
--- OUTSIDE RECORDS SUMMARY | 2025-01-19 17:27 | XMS_ITS | Encounter Summary ---
Author Organization [employer] Address 75 [facility] 7t [place] [address] Care Team Providers Care Social Work Coordinator Name Role Phone Shereen Latham MD Primary Care Provider [phone] Nupur Bullock PharmD Unavailable Sury Benitez Unavailable [phone] Nirali Madrid OD Unavailable Li Grande MD Unavailable [phone] Anselmo Gates MD Unavailable Margaret Holman Unavailable Herberth Stokes MD Unavailable [phone] Encounter Details Date Type Department Care Team (Late st Contact Info) Description 11/16/2022 Abstract [facility]INE [address] [place], [place] [phone] Shereen Latham MD 230 [place], [place] [phone] Social History Tobacco Use Types Packs/Day Years [...] 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 Per Dr. 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 Initially seen 12/2021 for hyperaldosteronism. Labs [facility] 10/2021 aldosterone 8, plasma renin 0.11, aldosterone/renin 72.7. She was likely on spironolactone and lisinopril at time of labs. Advise no spironolactone for 6 weeks and recheck renin aldosterone levels with renal panel and magnesium in web content editor. 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 -S/p RIGHT [facility]aste[facility] with sent[facility] started Oct, completed [...] had ultrasound sound for abdominal pain [place] [facility] Ultrasound showed diffusely echogenic parenchyma with focal sparing around the gallbladder. No suspicious lesions. Impression showed liver likely representing hepatic steatosis and non- obstructing right kidney stone. documented in this encounter Plan of Treatment Upcoming Encounters Date Type Department Care Team (Late st Contact Info) Description 01/24/2025 1:00 PM EDT Clinical Support [facility] DIABETES/NUTRITION 230 [place] [address] [place] [address] 03/29/2025 2:00 PM EDT Office Visit [facility] ADULT DENTAL 230 [place] [address] Jenny Gordon 230 [place] [address] documented as of this encounter Visit Diagnoses Not on filedocumented in this encounter Care Teams Social Work Coordinator Relationship Specialty Start Date End Date Shereen Latham MD 230 [place] [address] PCP - General Family Medicine 11/02/18 Nupur Bullock, CharleneD [address] [place] [address] Pharmacist Internal Medicine 08/09/24 Sury Benitez [address] [place] [address] [address] Pulmonary Disease 09/27/24 Nirali Madrid OD 267 [place] [address] Optometry 10/27/24 Li Grande MD [address] [place] [address] Hematology and Oncology 10/27/24 Anselmo Gates MD [address] [facility] 203 [place] [address] Orthopaedic Surgery 10/27/24 Margaret Holman 11 [facility] 3rd [place] [address] Cardiology 10/27/24 Herberth Stokes MD 11 [facility] 3rd [place] [address] Gastroenterology 10/27/24 Pily Delaney Databases Software ConsultantLibrary Science Instructor 07/22/24 Elie BRASHER [facility] Psychology 12/29/24 documented as of this encounter
--- OUTSIDE RECORDS SUMMARY | 2025-01-19 17:27 | XMS_ITS | Encounter Summary ---
Author Organization [employer] Address 75 [facility] 7t [place] [address] Care Team Providers Care Ager Operator Name Role Phone Shereen Latham MD Primary Care Provider [phone] Nupur Bullock PharmD Unavailable [phone] Sury Benitez Unavailable [phone] Nirali Madrid OD Unavailable [phone] Li Grande MD Unavailable [phone] Anselmo Gates MD Unavailable Margaret Holman Unavailable Herberth Stokes MD Unavailable [phone] Encounter Details Date Type Department Care Team (Late st Contact Info) Description 05/02/2024 Orders Only [facility] MEDICINE 230 [place], [place] [phone] Shereen Latham MD 230 [place], [place] [phone] Gout, unspecified cause, unspecified chronicity, unspecified site [...] Description 01/24/2025 1:00 PM EDT Clinical Support [facility] DIABETES/NUTRITION 230 [place] [address] [place] [address] 03/29/2025 2:00 PM EDT Office Visit [facility] ADULT DENTAL 230 [place] [address] Jenny Gordon 230 [place] [address] documented as of this encounter Visit Diagnoses Diagnosis Gout, unspecified cause, unspecified chronicity, unspecified site- Primary documented in this encounter Additional Health Concerns Assessment Noted Time PHQ-9 Depression Total Score: 23 04/25/ 024 1:45 PM EDT documented as of this encounter Care Teams Ager Operator Relationship Specialty Start Date End Date Shereen Latham MD 230 [place] [address] PCP - General Family Medicine 11/02/18 Nupur Bullock, CharleneD [address] [place] [address] Pharmacist Internal Medicine 08/09/24 Sury Benitez [address] [place] [address] Dr [facility] 103 [place] [address] Pulmonary Disease 09/27/24 Nirali Madrid, SUSAN 267 [place] [address] Optometry 10/27/24 Li Grande MD [address] [place] [address] Hematology and Oncology 10/27/24 Anselmo Gates MD [address] [facility] [address] [facility] [address] [facility] 203 [place] [address] Orthopaedic Surgery 10/27/24 Margaret Holman 11 [facility] 3rd [place] [address] Cardiology 10/27/24 Herberth Stokes MD 11 [facility] 3rd [place] [address] Gastroenterology 10/27/24 Pily Delaney Personnel ClerkDirector Career 07/22/24 Elie BRASHER [facility] Psychology 12/29/24 documented as of this encounter
--- OUTSIDE RECORDS SUMMARY | 2025-01-19 17:27 | XMS_ITS | Encounter Summary ---
Author Organization [employer] Address 75 [facility] 7t [place] [address] Care Team Providers Care Carpet Measurer Name Role Phone Shereen Latham MD Primary Care Provider Nupur Bullock PharmD Unavailable [phone] Sury Benitez Unavailable [phone] Nirali Madrid OD Unavailable [phone] Li Grande MD Unavailable [phone] Anselmo Gates MD Unavailable Margaret Holman Unavailable Herberth Stokes MD Unavailable [phone] Encounter Details Date Type Department Care Team (Latest Contact Info) Description 01/17/2025 Travel Social History Tobacco Use Types Packs/Day [...] Description 01/24/2025 1:00 PM EDT Clinical Support [facility] DIABETES/NUTRITION 230 [place] [address] Ernestina Esteban, RD 230 [place] [address] 03/29/2025 2:00 PM EDT Office Visit [facility] ADULT DENTAL 230 [place] [address] Jenny Gordon 230 [place] [address] documented as of this encounter Visit Diagnoses Not on filedocumented in this encounter Additional Health Concerns Assessment Noted Time PHQ-9 Depression Total Score: 22 025 10:17 AM EST documented as of this encounter Care Teams Carpet Measurer Relationship Specialty Start Date End Date Shereen Latham MD [address] [place] [address] PCP - General Family Medicine 11/02/18 Nupur Bullock, CharleneD 230 [place] [address] Pharmacist Internal Medicine 08/09/24 Sury Benitez [address] [place] [address] Dr [facility] 103 [place] [address] Pulmonary Disease 09/27/24 Nirali Madrid OD [address] [place] [address] Optometry 10/27/24 Li Grande MD [address] [place] [address] Hematology and Oncology 10/27/24 Anselmo Gates MD [address] [place] [address] 203 [place] [address] Orthopaedic Surgery 10/27/24 Margaret Holman [address] [place] [address] 3rd [place] [address] Cardiology 10/27/24 Herberth Stokes MD [address] [place] [address] 3rd [place] [address] Gastroenterology 10/27/24 Pily Delaney KaiwhakahaereMasonry Teacher 07/22/24 Elie Vicky [facility] 12/29/24 documented as of this encounter
--- OUTSIDE RECORDS SUMMARY | 2025-01-19 17:27 | XMS_ITS | Encounter Summary ---
Author Organization [employer] [facility] Address 75 [facility] 7t [place] [address] Care Team Providers Care Ribbon Lapper Tender Name Role Phone Shereen Latham MD Primary Care Provider Nupur Bullock PharmD Unavailable Sury Benitez Unavailable [phone] Nirali Madrid OD Unavailable Li Grande MD Unavailable [phone] Anselmo Gates MD Unavailable Margaret Holman Unavailable Herberth Stokes MD Unavailable [phone] Encounter Details Date Type Department Care Team (Late st Contact Info) Description 01/13/2025 Population Health Risk Score [facility] (C3) Department 75 [facility] 7 [place] [phone] Provider, Population Health Generic Social History Tobacco Use Types Packs/Day Years [...] Description 01/24/2025 1:00 PM EDT Clinical Support [facility] DIABETES/NUTRITION 230 [place] [address] [place] [address] 03/29/2025 2:00 PM EDT Office Visit [facility] ADULT DENTAL 230 [place] [address] Jenny Gordon 230 [place] [address] documented as of this encounter Visit Diagnoses Not on filedocumented in this encounter Additional Health Concerns Assessment Noted Time PHQ-9 Depression Total Score: 22 025 10:17 AM EST documented as of this encounter Care Teams Ribbon Lapper Tender Relationship Specialty Start Date End Date Shereen Latham MD 230 [place] [address] PCP - General Family Medicine 11/02/18 Nupur Bullock PharmD 230 [place] [address] Pharmacist Internal Medicine 08/09/24 Sury Benitez [address] [place] [address] Dr [facility] 103 [place] [address] Pulmonary Disease 09/27/24 Nirali Madrid OD [address] [place] [address] Optometry 10/27/24 Li Grande MD [address] [place] [address] Hematology and Oncology 10/27/24 Anselmo Gates MD [address] [facility] [address] [place] [address] Orthopaedic Surgery 10/27/24 Margaret Holman [address] 3rd [place] [address] Cardiology 10/27/24 Herberth Stokes MD 11 [facility] 3rd [place] [address] Gastroenterology 10/27/24 Pily Delaney Manager Corporate StrategyPharmacy Intake Coordinator 07/22/24 Elie Vicky [facility] 12/29/24 documented as of this encounter
--- OUTSIDE RECORDS SUMMARY | 2025-01-19 17:27 | XMS_ITS | Encounter Summary ---
Author Organization [employer] Address [address] [facility] [address] [place] [address] Care Team Providers Care Livestock Judging Coach Name Role Phone Shereen Latham MD Primary Care Provider Nupur Bullock PharmD Unavailable Sury Benitez Unavailable [phone] Nirali Madrid OD Unavailable Li Grande MD Unavailable [phone] Anselmo Gates MD Unavailable Margaret Holman Unavailable Herberth Stokes MD Unavailable [phone] Reason for Visit * Consultation (Routine) - Closed Specialty Diagnoses / Procedures Referred By Contanna nelson Referred To Contact Nutrition Diagnoses History of chronic CHF Shereen Latham MD [address] [place] [address] Phone: tel: fax: Referral ID Status Reason Start Date Expiration Date V isits Requested Visits Authorized [id number] Closed Consult and Treat 08/24/2024 08/24/2025 1 1 Encounter Details Date Type Department Care Team (Late st Contact Info) Description 01/17/2025 3:00 PM EDT Nutrition C DIABETES/NUTRITION [address] [place] [address] [place], [place] [id number] History of chronic CHF Social History Tobacco Use Types Packs/Day Years [...] the past 12 months, has t he [employer], [place], oil or water [employer] threatened to shut off services in your [...] - Inhaled Oxygen Concentration - - Weight 90 kg (198 lb 6.4 oz) 01/19/2025 2:27 PM EDT Height 170.2 cm (5' 7 ) 01/19/2025 2:27 PM EDT Body Mass Index 31.07 01/19/2025 2:27 PM EDT documented in this encounter Progress Notes * Ernestina Esteban, KATE - 01/17/2025 3:00 PM EDT In Person Visit Medical Diagnosis: Z86.79 History of chronic CHF Anthropometrics: Ht:5' 7 (1.702 m), Wt:198 lb 6.4 oz (90 kg), BMI: Body mass index is 31.07 kg/m??. Assessment: Patient (Pt) accepted nutrition education assessment appointment with RD. RD took Pt's weight. Weight showed a slight decrease of about two (2) pounds since last noted here in Pt's chart. RD took 24 hour recall/ typical daily intake from Pt. Intake revealed Pt's diet is high in carbohydrates and refine carbohydrates and low in: protein, healthy fats, fiber, whole grains, fresh and cooked vegetables and fruit. Today, Pt only did the first half of First appointment. Once the second half of First appointment is finished, RD will fill in nutrition diagnosis, nutrition Intervention, goals, Tailored made meal plan, monitoring and evaluation will be put into Pt's chart here. Thus, all is to be followed by Pt with their agreement. The second half of First nutrition education assessment appointment is scheduled in the last week of December 2024. Until then, RD gave some suggestions that Pt agreed to work on. They are: From [employer]: magnesium citrate [address] suggested to take two capsules/ tablets in the evening to help with constipation. From [employer]: Multi-vitamin for 50+ for Her: RD suggested to take as bottles suggests- one per day with a meal - preferred in the morning. Digestive Enzymes from: [employer]- Basic. RD suggest to take one with a meal to help with digestion of foods. Note: Pt did informed RD that she had recently, on her own, take nutritional supplements. She stop takingthem and wanted to hear from RD about what she was taking. Food Allergies: NKFA Exercise: not at all Food Intolerance: Didn't say Food Preferences: White breads, tortillas, bagels, crackers, noodles, white rice, milk, sweet cereals, mayonnaise, soriano, eggs, sausage, ham, cheeses, tuna, chicken, pork, beef, pizza, lettuce, tomatoes, corn, winkler's pie, Ravioli with beef, garlic, spaghetti w/ beef and red sauce, water, juices, soups, potato chips, stevia Food Dislikes: Not keen on eating fruits. Tobacco use: Yes; smokes 4-5 cigarettes a day. Frequency of Eating Out/ Restaurant: Not a norm Who Cooks?: Patient and Daughter How much caffeine?: denies use How much sugary beverages?: Juice, 3/4 - 1 cup per day Diet History: Breakfast: Eg Soriano: 2-3 strips White bread, toast: 2 Mayonnaise: 2 tablespoons Juice: 3/4 - 1 cup Snack: none Water: 1 cup Lunch: None; Pt skips lunch everyday Snack: None Water: 1 cup Dinner: Rice: 1 1/2 cups Beans: 1/2 cup Chicken: 2-3 oz. Juice: 3/4- 1 cup Water: 1 cups Snack: Lettuce & tomato sandwich: one Or A sweet cereal: 2 cups Milk: 3/4 cup Nutrition Diagnosis: 1st half of First appointment was done today. When the 2nd half of First appointment is finished/ done, this area will be filled in. Nutrition Intervention: 1st half of First appointment was done today. When the 2nd half of First appointment is finished/ done, this area will be filled in. Monitoring and Evaluation: 1st half of First appointment was done today. When the 2nd half of First appointment is finished/ done, this area will be filled in. Provider: Ernestina Esteban RD, ANAY documented in this encounter Plan of Treatment Upcoming Encounters Date Type Department Care Team (Late st Contact Info) Description 01/24/2025 1:00 PM EDT Clinical Support [facility] DIABETES/NUTRITION [address] [place] [address] Ernestina Esteban, KATE [address] [place] [address] 03/29/2025 2:00 PM EDT Office Visit [facility] ADULT DENTAL [address] [place] [address] Jenny Gordon [address] [place] [address] documented as of this encounter Visit Diagnoses Diagnosis History of chronic CHF documented in this encounter Additional Health Concerns Assessment Noted Time PHQ-9 Depression Total Score: 22 025 10:17 AM EST documented as of this encounter Care Teams Livestock Judging Coach Relationship Specialty Start Date End Date Shereen Latham MD [address] [place] [address] PCP - General Family Medicine 11/02/18 Nupur Bullock, CharleneD [address] [place] [address] Pharmacist Internal Medicine 08/09/24 Sury Benitez [address] [place] [address] [address] [facility] [address] [place] [address] Pulmonary Disease 09/27/24 Nirali Madrid OD [address] [place] [address] Optometry 10/27/24 Li Grande MD [address] [place] [id number] Hematology and Oncology 10/27/24 Anselmo Gates MD [address] [place] [address] Orthopaedic Surgery 10/27/24 Margaret Holman [address]rd [place] [address] Cardiology 10/27/24 Herberth Stokes MD [address] [place] [address] 3rd [place] [address] Gastroenterology 10/27/24 Pily Delaney [employer] Messenger 07/22/24 Elie BRASHER [facility] 12/29/24 documented as of this encounter
--- OUTSIDE RECORDS SUMMARY | 2025-01-19 17:27 | XMS_ITS | Clinical Summary ---
Author Organization [employer] Address [address] [place] [address] Care Team Providers Care Electrical Continuity Tester Name Role Phone Shereen Latham MD Primary Care Provider [phone] Nupur Bullock PharmD Unavailable Sury Benitez Unavailable [phone] JuliusNirali castellanos OD Unavailable Li Grande MD Unavailable [phone] Anselmo Gates MD Unavailable Margaret Holman Unavailable Herberth Stokes MD Unavailable [phone] Allergies Active Allergy Reactions Criticality Noted Date Comments Amoxicillin Hives,Itching High 02/21/2014 Other reaction(s): itchy, red skin Other Reaction(s): rash, rash/itching Hydrocodone Hives,Itching Low 12/13/2018 Latex Hives,Itching Low 02/20/2023 Other reaction(s): itching Sulfamethoxazole Rash High 08/09/2015 Trimethoprim Hives,Itching,Rash High 08/09/2015 Medications * This document contains information received from the source organization and may not represent a complete record from that organization. Spacer/Aero-Hol ding Chambers (AeroChamber MV) inhalerIndicati ons:Mild intermittent reactive airway disease without complication Use as instructed 1 each 2 02/12/20 24 Active thiamine (Vitamin B-1) 100 MG [...] 16 g 2 10/20/20 24 025 Active spironolactone (Aldactone) 25 MG tabletIndicatio ns:Benign essential hypertension Take one half tablet by mouth once daily Active magnesium oxide (Mag-Ox) 400 MG tabletIndicatio ns:Hypomagnesem ia TAKE 1 TABLET BY MOUTH THREE QID 360 tablet 3 11/09/19 25 Active furosemide (Lasix) 40 MG tabletIndicatio ns:Benign essential hypertension TAKE 1 TABLET BY MOUTH EVERY MORNING 90 tablet 1 11/10/19 25 Active fluticasone-venessa meterol (Advair) 230-21 MCG/ACT inhalerIndicati ons:Mild intermittent reactive airway disease without complication Inhale 2 puffs in the morning and at bedtime. Rinse mouth with water after use to reduce aftertaste and incidence of candidiasis. Do not swallow. Active allopurinol (Zyloprim) 100 MG tabletIndicatio ns:Gout, unspecified cause, unspecified chronicity, unspecified site Take 1 tablet (100 mg) by mouth 2 times daily. 180 tablet 3 12/29/19 25 Active omeprazole (PriLOSEC) [address] capsuleIndicati ons:Gastroesoph ageal reflux disease, unspecified whether esophagitis present TAKE 1 CAPSULE BY MOUTH EVERY MORNING BEFORE BREAKFAST 90 capsule 3 01/11/20 25 Active D3-1000 25 MCG (1000 UT) capsuleIndicati ons:Vitamin D deficiency TAKE 1 CAPSULE BY MOUTH EVERY MORNING 90 capsule 3 01/11/20 25 Active cetirizine (ZyrTEC) 10 MG tabletIndicatio ns:Nasal congestion TAKE 1 TABLET BY MOUTH EVERY DAY NEEDED FOR ALLERGIES 90 tablet 3 01/11/20 25 Active losartan (Cozaar) 25 MG tabletIndicatio ns:Benign essential hypertension TAKE 1 TABLET BY MOUTH TWICE DAILY IN THE MORNING AND IN THE EVENING 180 tablet 3 01/13/20 25 Active Acetaminophen Extra Strength 500 MG tabletIndicatio ns:Pain TAKE 1 TABLET BY MOUTH EVERY 6 TO 8 HOURS NEEDED FOR PAIN OR FOR FEVER 60 tablet 01/18/20 25 Active Vitamin D High Potency 25 MCG (1000 UT) capsuleIndicati ons:Vitamin D deficiency Take 1 capsule (25 mcg) by mouth in the morning. 90 capsule 3 10/22/20 23 025 Discontinued omeprazole (PriLOSEC) [address] capsuleIndicati ons:Gastroesoph ageal reflux disease, unspecified whether esophagitis present TAKE 1 CAPSULE BY MOUTH EVERY MORNING BEFORE BREAKFAST 90 capsule 1 06/30/20 24 025 Discontinued cetirizine (ZyrTEC) 10 MG tabletIndicatio ns:Nasal congestion TAKE 1 TABLET BY MOUTH EVERY DAY NEEDED FOR ALLERGIES OR RHINITIS 90 tablet 1 07/07/20 24 025 Discontinued allopurinol (Zyloprim) 100 MG tabletIndicatio ns:Gout, unspecified cause, unspecified chronicity, unspecified site Take 1 tablet (100 mg) by mouth Once per day. 90 tablet 2 07/13/20 24 025 Discontinued(R eorder (will not trigger notification to Pharmacy)) losartan (Cozaar) 25 MG tabletIndicatio ns:Benign essential hypertension TAKE 1 TABLET BY MOUTH TWICE DAILY IN THE MORNING AND IN THE EVENING 180 tablet 10/21/20 24 025 Discontinued Acetaminophen Extra Strength 500 MG tabletIndicatio ns:Pain TAKE 1 TABLET BY MOUTH EVERY 6 TO 8 HOURS NEEDED FOR PAIN OR FOR FEVER 60 tablet 11/23/19 25 025 Discontinued(R eorder (will not trigger notification to Pharmacy)) albuterol (2.5 MG/3ML) 0.083% nebulizer solution INHALE 1 AMPULE USING A NEBULIZER EVERY 4 TO 6 HOURS NEEDED FOR WHEEZING OR SHORTNESS OF BREATH 11/11/19 025 Discontinued(M ed list cleanup (will not [...] cleanup (will not trigger notification to Pharmacy)) Acetaminophen Extra Strength 500 MG tabletIndicatio ns:Pain TAKE 1 TABLET BY MOUTH EVERY 6 TO 8 HOURS NEEDED FOR PAIN OR FOR FEVER 60 tablet 12/21/19 25 025 Discontinued(R eorder (will not trigger notification to Pharmacy)) oxyCODONE (Roxicodone) 5 MG immediate release tablet TAKE 1 TABLET BY MOUTH TWICE DAILY NEEDED FOR SEVERE PAIN (7-10 PAIN SCALE) 12/20/19 025 Discontinued(M ed list cleanup (will not trigger notification to Pharmacy)) Active Problems Problem Noted Date Diagnosed Date Gout 07/13/2024 Overview (12/29/2024): Lab Results Component Value Date URICACID 5.8 (H) 12/29/2024 URICACID 5.9 (H) 08/30/2024 URICACID 5.4 06/16/2024 URICACID 7.9 (H) 04/25/2024 -Pt initially treated for gout in R 04/21/24 with uric acid 7.9 -Seen by erp project manager Dr. Bernstein 05/11/24 or evaluation of acute gout affecting left foot. -Pt admitted 07/25/24-07/2524 for swelling, pain, and warmth in the right knee. Patient had a low fever (100.3 F) and elevated WBC (35674 cells/uL), CRP, and ESR. Orthopedic surgery consulted [...] remaining course to stretch out getting off. -uric acid 12/29/24 5.8, allopurinol increased to 100mg bid -Continue colchicine 0.3 mg Twice daily for prophylaxis -Continue allopurinol 100 mg daily, plan to repeat acid level before next visit and increase allopurinol titrate allopurinol if needed to reach serum uric acid level <6 mg/dL(2020 [employer] guideline for the management [...] 04/21/24 with uric acid 7.9 -Seen by erp project manager Dr. Bernstein 05/11/24 or evaluation of acute gout affecting left foot. -Pt admitted 07/25/24-07/2524 for swelling, pain, and warmth in the right knee. Patient had a low fever (100.3 F) and elevated WBC (85503 cells/uL), CRP, and ESR. Orthopedic surgery consulted [...] reach serum uric acid level <6 mg/dL(2020 [employer] guideline for the management [...] reach serum uric acid level <6 mg/dL(2020 [employer] guideline for the management [...] ON 08/24/2024 9:45 AM BY JOLIE PA [facility] (07/25/2024 - 07/27/2024) Patient presented with swelling, pain, and warmth in the right knee. Patient had a low fever (100.3 F) and elevated WBC (63203 cells/uL), CRP, and ESR. Orthopedic surgery consulted [...] by mouth once daily for 5 days. [facility] (08/07/2024) Patient presented for right knee [...] of breath) 06/29/2024 Overview (12/29/2024): -Followed by [facility] Pulmonology with Sury Benitez NP -02/2024 [...] Plan (12/29/2024 11:03 AM EST): -Followed by [facility]monology with Sury Benitez NP -02/2024 [...] if needed. -pt reports she saw her financial reporting specialist and is continuing management with them. . Assessment & Plan (07/13/2024 2:15 PM EDT): -referred to pulmonology 06/29/24 -Pt reports she has appt to see financial reporting specialist 08/01/24 Assessment & Plan (06/29/2024 4:49 PM [...] failure with reduced EF during admission to [facility] 06/22/24. - She was started on [...] effusion and indeterminate diastolic function -Seen by [facility] Cardiology 08/01/24 : exercise nuclear stress [...] WRITTEN ON 06/29/2024 4:09 PM BY JOLIE Sampson with acute congestive heart failure with reduced EF during recent admission to [facility] 06/22/24. Pt was volume overloaded therefore [...] WRITTEN ON 07/13/2024 2:18 PM BY JOLIE Sampson with acute congestive heart failure with reduced EF during recent admission to [facility] 06/22/24. Pt was volume overloaded therefore [...] failure with reduced EF during admission to [facility] 06/22/24. - She was started on [...] effusion and indeterminate diastolic function -Seen by [facility] 08/01/24 : exercise nuclear stress [...] failure with reduced EF during admission to [facility] 06/22/24. - She was started on [...] effusion and indeterminate diastolic function -Seen by [facility] 08/01/24 : exercise nuclear stress [...] Cardiac risk counseling 02/24/2024 Overview (12/29/2024): Calculated 12/29/24: High Risk The 10-year ASCVD [...] Complex care coordination 01/11/2024 Overview (01/11/2024): -Has RN OR LVN services with Chavo Martin is applying [facility] 01/11/2024 -In our complex care management program -referred to [facility] on 01/04/2024 -Messaged sent to home health care provider for assistance in care visits Assessment & Plan (12/29/2024 10:21 AM EST): -Has RN OR LVN services with Chavo Martin is applying [facility] 01/11/2024 -In our complex care management program -referred to [facility] on 01/04/2024 -Messaged sent to [facility] home health care provider for assistance in care visits Assessment & Plan (08/24/2024 9:19 AM EDT): -Has RN OR LVN services with Chavo Martin is applying [facility] 01/11/2024 -In our complex care management program -referred to [facility] on 01/04/2024 -Messaged sent to [facility] home health care provider for assistance in care visits Assessment & Plan (06/29/2024 4:06 PM EDT): -Has RN OR LVN services with Chavo -She is applying [facility] 01/11/2024 -In our complex care management program -referred to [facility] on 01/04/2024 -Messaged sent to [facility] home health care provider for assistance in care visits Assessment & Plan (01/11/2024 9:30 AM EDT): -Has RN OR LVN services with Chavo -She is applying [facility] 01/11/2024 -In our complex care management program -referred to [facility] on 01/04/2024 -Messaged sent to [facility] home health care provider for assistance in care visits Generalized anxiety [...] Pain Management team and will reconnect with [facility]. Information given to patient. PLAN: (check all that apply) Behavioral Health Integration Plan Self- referred to [facility] per patient's preference. Assessment & Plan (11/24/2023 11:53 AM EST): STEFANY-7 Total Score: 21 (10/22/2023 10:44 AM) New/Additional Services needed Off-site services for , Behavioral Health Integration Plan External OP therapy referral , Patient Self Plan Patient to utilize skills provided in intervention , Patient to reach out to [facility] team as needed, and Patient to engage in OP therapy Provided patient with support in scheduling an Intake appt with N. Tubular adenoma of colon 09/07/2023 Overview (12/29/2024): [...] plan. -pt notes she has appt with for colonoscopy in July,. Assessment & Plan [...] for transfusion - Iron infusions ordered by [employer] DR. Grande - She recieved two sessions [...] for transfusion - Iron infusions ordered by [employer] DR. Grande - She recieved two sessions [...] for transfusion - Iron infusions ordered by [employer] DR. Grande - She recieved two sessions [...] for transfusion - Iron infusions ordered by [employer] DR. Grande - She recieved two sessions [...] pedro back by: Janett Ortega Person calling: [email or web address] Date:06/16/24 Time: 1218 Saw CDTM on 08/16/24 [...] pedro back by: Janett Ortega Person calling: [email or web address] Date:06/16/24 Time: 1218 Assessment & Plan (07/29/2023 4:34 PM EDT): Received magnesium IV in ER -Dose increased to TID - Recheck in 2 weeks Other specified health status 07/20/2023 Overview (07/11/2024): -next physical exam due after 06/29/25 -eye care facilitated by [facility] -dental home is [facility] -health care proxy filed 06/29/24 Assessment & Plan (06/29/2024 4:03 PM EDT): -next physical exam due after 06/29/25 -eye care facilitated by [facility] -dental home is [facility] -health care proxy given and filed 06/29/24 [...] on scene within 10 minutes, transfer completed [facility] called with expect Chronic GERD 05/26/2023 [...] had ultrasound sound for abdominal pain at [facility] revealing diffusely echogenic parenchyma with focal [...] had ultrasound sound for abdominal pain at [facility] revealing diffusely echogenic parenchyma with focal [...] had ultrasound sound for abdominal pain at [facility] revealing diffusely echogenic parenchyma with focal [...] had ultrasound sound for abdominal pain at [facility] revealing diffusely echogenic parenchyma with focal [...] had ultrasound sound for abdominal pain at [facility] revealing diffusely echogenic parenchyma with focal [...] had ultrasound sound for abdominal pain [place] [facility] Ultrasound showed diffusely echogenic parenchyma with focal [...] been [facility] but has [...] subsequently declined -Admitted for alcohol detox at [facility] 04/09/24 -reports she is currently not [...] been referred to [facility] for Support and Recovery but has [...] subsequently declined -Admitted for alcohol detox at [facility] 04/09/24 -reports she is currently not [...] been referred to [facility] for Support and Recovery but has [...] subsequently declined -Admitted for alcohol detox at [facility] 04/09/24 -reports she is currently not [...] received phenobarb improved her symptoms, patient declined life enrichment director help to place her in rehab, is [...] received phenobarb improved her symptoms, patient declined life enrichment director help to place her in rehab, is [...] History of right breast cancer 12/12/2021 Overview (01/17/2025): Adenocarcinoma of the right breast with DCIS grade 3, cribriform type, invasive tumor 2.2 cm ER positive, RI positive, HER-2/RON negative, two sentinel nodes negative. -S/p RIGHT mastectomy with sentinel node bx by Dr. Martinezat [facility] -Adriamycin/Cytoxan based chemotherapy started Oct, [...] discharged from clinic. -She reestablished with oncology 08/30/2024, note from 01/16/25 reviewed -Has appt for mammogram in December 2024. Assessment & Plan (12/29/2024 10:20 AM EST): Adenocarcinoma of the right breast with DCIS grade 3, cribriform type, invasive tumor 2.2 cm ER positive, RI positive, HER-2/RON negative, two sentinel nodes negative. -S/p RIGHT mastectomy with sentinel node bx by Dr. Martinezat [facility] -Adriamycin/Cytoxan based chemotherapy started Oct, [...] type, invasive tumor 2.2 cm ER positive, RI positive, HER-2/RON negative, two sentinel nodes negative. -S/[facility]/Cytoxan [facility] started Oct, completed [...] type, invasive tumor 2.2 cm ER positive, RI positive, HER-2/RON negative, two sentinel nodes negative. -S/p RIGHT mastectomy with sentinel node bx by Dr. Prescott [facility] -Adriamycin/Cytoxan based chemotherapy started Oct, [...] type, invasive tumor 2.2 cm ER positive, RI positive, HER-2/RON negative, two sentinel nodes negative. -S/p RIGHT [facility]Ad[facility]/Cytoxan based chemotherapy started Oct, completed [...] type, invasive tumor 2.2 cm ER positive, RI positive, HER-2/RON negative, two sentinel nodes negative. -S/p RIGHT maste[facility] with sentinel [facility] -Adriamycin/Cytoxan based chemotherapy started Oct, completed [...] type, invasive tumor 2.2 cm ER positive, RI positive, HER-2/RON negative, two sentinel nodes negative. -S/p RIGHT mastectomy with sentinel node bx by Dr. Martinezat [facility] -Adriamycin/Cytoxan based chemotherapy started Oct, [...] type, invasive tumor 2.2 cm ER positive, RI positive, HER-2/RON negative, two sentinel nodes negative. -[facility]an [facility] started Oct, completed [...] type, invasive tumor 2.2 cm ER positive, RI positive, HER-2/RON negative, two sentinel nodes negative. -S/[facility]an [facility] started Oct, completed [...] type, invasive tumor 2.2 cm ER positive, RI positive, HER-2/RON negative, two sentinel nodes negative. -S/p RIGHT maste[facility] with sentinel [facility] -Adriamycin/Cytoxan based chemotherapy started Oct, completed [...] Overview (06/28/2024): Lab Results Component Value Date [id number] 58.3 06/16/2024 [id number] 106.4 01/04/2024 [id number] 76.8 09/22/2023 Assessment & Plan (06/29/2024 3:39 PM EDT): Lab Results Component Value Date [id number] 58.3 06/16/2024 [id number] 106.4 01/04/2024 [id number] 76.8 09/22/2023 Assessment & Plan (12/14/2023 12:09 PM EST): Lab Results Component Value Date [id number] 76.8 09/22/2023 -Labs ordered for further evaluation: Vitmain D, 25-hydroxy, Total, Immunoassay. 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 Per Dr. Krish Loomis's note from [facility] [facility]ICE [employer], pt was due for repeat colposcopy in [...] CIN2-3. Per Dr. Krish Loomis's note from [facility] [employer]ERSITY RELATIONS VICE PRESIDENT, pt was due for repeat colposcopy in [...] CIN2-3. Per Dr. Krish Loomis's note from [facility] [employer]ERSITY RELATIONS VICE PRESIDENT, pt was due for repeat colposcopy in [...] CIN2-3. Per Dr. Krish Loomis's note from [facility] [employer]ERSITY RELATIONS VICE PRESIDENT, pt was due for repeat colposcopy in [...] Health Integration Plan Internal Follow up with [facility] Patient Self Plan Patient to utilize skills provided in intervention , Patient to reach out to [facility] team as needed, Patient to reach out to [facility] as needed, and will contact [facility] Intake number to connect with snf OP services, and psychiatrist. Rule Out Diagnoses: [...] as pharmacomtherapy, [facility] smoking cessation group, and [facility] pharmacy smoking cessation clinic Discussed USPSTF recommends [...] as pharmacomtherapy, [facility] smoking cessation group, and [facility] pharmacy smoking cessation clinic Discussed USPSTF recommends [...] as pharmacomtherapy, [facility] smoking cessation group, and [facility] pharmacy smoking cessation clinic Discussed USPSTF recommends [...] as pharmacomtherapy, [facility] smoking cessation group, and [facility] pharmacy smoking cessation clinic Discussed USPSTF recommends [...] as pharmacomtherapy, [facility] smoking cessation group, and [facility] pharmacy smoking cessation clinic Discussed USPSTF recommends [...] flare 05/11/2024 12/29/2024 Overview (07/13/2024): Seen by erp project manager Dr. Bernstein 05/11/24 or evaluation of acute [...] Plan (07/13/2024 2:21 PM EDT): Seen by erp project manager Dr. Bernstein 05/11/24 or evaluation of acute [...] EDT): Patient requesting a Physical for her RN OR LVN hours to be re-instated. On exam today, her vitals are stable and her exam seems unchanged from previous one. Work up in progress for her c/o bilateral foot pain Hospital discharge follow-up 06/18/2023 07/20/2023 Assessment & Plan (07/14/2023 10:23 AM EDT): Patient here for a HDF. She was admitted [place] [facility] [place] [facility] . She presented with concerns [...] this morning Hypokalemia 12/09/2022 10/27/2024 Hyperaldosteronism 11/16/2022 Overview (11/16/2022): Seen by [facility] 04/03/2022. Initially seen 12/2021 for hyperaldosteronism. Labs [facility] 10/2021 aldosterone 8, plasma renin 0.11, aldosterone/renin 72.7. She was likely on spironolactone and lisinopril at time of labs. Advise no spironolactone for 6 weeks and recheck renin aldosterone levels with renal panel and magnesium in burlap bag sewer. Assessment & Plan (11/16/2022 10:55 AM EST): Seen by [facility] Endocrinology 04/03/2022. Initially seen 12/2021 for hyperaldosteronism. Labs [facility] 10/2021 aldosterone 8, plasma renin 0.11, aldosterone/renin 72.7. She was likely on spironolactone and lisinopril at time of labs. Advise no spironolactone for 6 weeks and recheck renin aldosterone levels with renal panel and magnesium in burlap bag sewer. Anxiety 04/19/2014 01/28/2024 Encounters Date Type Department Care Team Description 01/19/2025 Orders Only [facility] [address] [place] [address] Stacey Khan MD Women's annual routine gynecological examination (Primary Dx) 01/19/2025 Orders Only [facility] [address] [place] [phone] Stacey Khan MD Breast pain, left (Primary Dx) 01/17/2025 3:00 PM EDT Nutrition [facility] DI[facility]ET[facility]/NUTRITIO N [address] [place] [address] History of chronic CHF 01/17/2025 Refill [facility] [address] [place] [address] Shereen Latham MD Pain 01/17/2025 Travel 01/17/2025 Refill [facility] [address] [place] [address] Mayda Rush MD Pain 01/16/2025 Telephone [facility] [address] [place] [address] Shereen Latham MD Appointment Request 01/13/2025 Population Health Risk Score [facility] [address] [place] [phone] Provider, Population Health Generic 01/12/2025 Refill [facility] [address] [place] [address] Shereen Latham MD Benign essential hypertension 01/09/2025 Refill [facility] [address] [place] [address] Shereen Latham MD Gastroesophageal reflux disease, unspecified whether esophagitis present; Vitamin D deficiency; Nasal congestion 01/03/2025 Telephone [facility] [address] [place] [address] Shereen Latham MD Referral 12/29/2024 10:30 AM EST Office Visit [facility] [address] [place] [address] Shereen Latham MD History of right breast [...] care coordination; Tubular adenoma of colon 12/29/2024 Telephone [facility] [address] [place] [address] Shereen Latham MD Results 12/29/2024 Orders Only [facility] [address] [place] [phone] Shereen Latham MD Gout, unspecified cause, unspecified chronicity, unspecified site 12/29/2024 Orders Only GENERIC EXTERNAL DATA DEPARTMENT Provider, Generic External Data 12/29/2024 Travel 12/22/[address] [address] Shereen Latham MD Durable Medical Equipment; chartprep 12/22/[address] [address] Shereen Latham MD Nurse Triage 12/21/2024 3:30 PM EST Telemedicine [address] [address] Nupur Bullock, [place] Preventative health care (Primary Dx) 12/21/2024 Travel 12/21/2024 Refill [facility] [address] [place], [place] [phone] Shereen Latham MD Pain 12/20/2024 Orders Only [facility] External Provider, [facility] 12/14/2024 Travel 12/12/2024 Patient Outreach [address] [address] Shereen Latham MD Transition Of Care (Tcm) 12/10/2024 Orders Only GENERIC EXTERNAL DATA DEPARTMENT Provider, Generic External Data 12/09/[address] [address] Shereen Latham MD Nurse Triage 12/07/[address] [address] Shereen Latham MD ER Follow-up 12/06/2024 Orders Only GENERIC EXTERNAL DATA DEPARTMENT Provider, Generic External Data 12/03/2024 Travel 11/25/2024 Orders Only [address] [address] Shereen Latham MD Vaginal lesion (Primary Dx) 11/23/2024 3:30 PM EST Telemedicine [address] [address] Nupur Bullock, PharmD Benign essential hypertension (Primary Dx) 11/23/2024 Telephone [facility] [address] [place] [phone] Shereen Latham MD Referral 11/22/2024 Refill [facility] [address] [place] [address] Shereen Latham MD Pain 11/22/2024 Patient Outreach [facility] [address] [place] [phone] Shereen Latham MD Transition Of Care (Tcm) 11/18/2024 Telephone [facility] [address] [place] [address] Violetta Mackey MA Breast Cancer Screening 11/17/2024 2:40 PM EST Office Visit [facility] [address] [place] [phone] Shereen Latham MD Benign essential hypertension (Primary Dx); Depression with anxiety 11/17/2024 Travel 11/17/2024 Telephone [facility] [address] [place] [phone] Shereen Latham MD Nurse Triage 2024 Travel 11/10/[address] [address] Shereen Latham MD Nurse Triage 11/10/2024 Refill [facility] [address] [place] [phone] Shereen Latham MD Benign essential hypertension 11/09/2024 11:30 AM EST Office Visit [facility] [address] [place] [phone] Shereen Latham MD Gout of foot, unspecified cause, unspecified chronicity, unspecified laterality (Primary Dx); Mild intermittent reactive airway disease without complication; Benign essential hypertension; Severe episode of recurrent major depressive disorder, with psychotic features (CMS/HCC); Alcohol use disorder, moderate, dependence (CMS/HCC); Dietary counseling; Exercise counseling; Overweight; Hypomagnesemia; Anemia, unspecified type; Cardiac risk counseling; History of right breast cancer 11/09/2024 Travel 11/08/2024 Telephone [facility] [address] [place] [address] Laura Cifuentes MD 11/08/2024 Orders Only [facility] [address] [place] [phone] Shereen Latham MD Iron deficiency anemia, unspecified iron deficiency anemia type (Primary Dx) 11/01/2024 Patient Outreach [facility] [address] [place] [address] Shereen Latham MD Transition Of Care (Tcm) 11/01/2024 Telephone [facility] [address] [place] [address] Shereen Latham MD Results 10/31/2024 Orders Only [facility] External Provider, [facility] 10/31/[address] [address] Shereen Latham MD Nurse Triage 10/24/2024 Orders Only [facility] External Provider, [facility] Tobacco dependence syndrome (Primary Dx) 10/21/2024 Telephone [facility] [address] [place] [phone] Audrey Conway RN Results 10/21/[address] [address] Shereen Latham MD Results from Last 3 Months Immunizations Name Administration [...] EST Inhaled Oxygen Concentration - - Weight 90 kg (198 lb 6.4 oz) 01/19/2025 2:27 PM EDT Height 170.2 cm (5' 7 ) 01/19/2025 2:27 PM EDT Body Mass Index 31.07 01/19/2025 2:27 PM EDT Plan of Treatment Upcoming Encounters Date Type Department Care Team (Late st Contact Info) Description 01/24/2025 1:00 PM EDT Clinical Support [facility] [address] [place] [address] Ernestina Esteban, RD [address] [place] [phone] 03/29/2025 2:00 PM EDT Office Visit [facility] [address] [place] [address] Heidi, Jenny [address] [place] [address] Health Maintenance Due Date Last Done Comments CT Colonography 1975 FIT 1975 FOBT 1975 Sigmoidoscopy 1975 Dental X-Ray: Full Mouth 07/07/2022 07/06/2019 Zoster Vaccines (1 of 2) 2023 Mammogram 08/27/2024 08/27/2023, 10/02, 09/09/2019 Dental Oral Exam 12/19/2024 06/17/2024, 07/06/2019 Dental Prophylaxis 03/29/2025 09/28/2024, 1 , 07/06/2019 Alcohol/Substance Use Screening 04/25/2025 04/25/2024 Influenza Vaccine (#1) 2025 09/06/2015 Postp oned from 07/03/2024 (Patient Refused) Dental X-Ray: Bitewings 06/18/2025 06/17/20, 03/31/2024, 08/16/2021, Additional history exists Depression Monitoring (PHQ-9) 06/28/2025 12/29/2024, 12/29/2024 DTaP/Tdap/Td Vaccines (4 - Tdap) 06/29/2025 08/10/2020, 07/16/2007, 07/05/1981, Additional history exists Postponed from 08/11/2020 (Patient Refused) COVID-19 Vaccine ( season) 2025 02/09/2021 Postponed from 07/03/2024 (Patient Refused) Depression Screening 12/29/2025 12/29/2024, 12/29/19 Family Planning (PISQ) 12/29/2025 12/29/2024 SDOH Screening 12/29/2025 12/29/2024 Tobacco Screening 12/29/2025 12/29/2024 Colonoscopy 07/11/2026 07/11/2024 Colorectal Cancer Screening 07/11/2026 FIT DNA/Cologuard 08/27/2026 08/27/2023 Lipid Panel 12/29/2029 12/29/2024, 0803/2024, 09/22/2023, Additional history exists RSV Patients and Patients Aged 60 years or older (1 - 1-dose 75+ series) 2048 IPV Vaccines Completed 07/05/1981, 0704/1980, 08/24/1978, Additional history exists HPV/Cotest Discontinued 08/12/2018, 04/20/2017 Hepatitis B Vaccines Completed 08/10/2020, 09/01/2007, 07/16/2007 HIV Screening Completed 02/24/2024, 07/04, 01/23/2022, Additional history exists Pneumococcal Vaccine: 50+ Years Completed 03/30/2024, 08/23/2008 Hepatitis C Screening Completed 06/16/2024 , 02/24/2024, 07/24/2023, Additional history exists Hepatitis A Vaccines Aged Out 06/29/2024 No long er eligible based on patient's age to complete this topic Cervical Cancer Screening Discontinued HIB Vaccines Aged [...] PM EDT Women's annual routine gynecological examination CBC WITH AUTO DIFFERENTIAL Routine 12/29/2024 10:53 AM EST URIC ACID Routine 12/29/2024 10:53 AM EST Gout, unspecified cause, unspecified chronicity, unspecified site MAGNESIUM Routine 12/29/2024 10:53 AM EST Hypomagnesemia BASIC METABOLIC PANEL Routine 12/29/2024 10:53 AM EST Benign essential hypertension LIPID PANEL, STANDARD Routine 12/29/2024 10:53 AM EST Benign essential hypertension XR KNEE 1-2 VIEWS RIGHT Routine 12/20/2024 [...] WO CONTRAST Routine 10/24/2024 4:44 PM EST PROPHYLAXIS - ADULT Routine 09/28/2024 9 :00 AM EST Dental plaque HM COLONOSCOPY Routine 07/11/2024 BITEWINGS - 4 RADIOGRAPHIC IMAGES Routine 06/17/2024 3:30 PM EDT Encounter for dental examination PERIODIC ORAL EVALUATION - ESTABLISHED PATIENT Routine 06/17/2024 3:30 PM EDT Encounter for dental examination HEPATITIS PANEL, GENERAL Routine 06/16/2024 8:22 AM EDT Transaminitis HIV 1/2 ANTIGEN/ANTIBODY, FOURTH GENERATION W/RFL Routine [...] Recently Relevant to Health Maintenance Results * D Dimer High Sensitivity (01/19/2025 4:33 PM EDT) Only the most recent of2 resultswithin the time period is included. [facility] D Dimer High Sensitivity <150 NG/ML [facility] Comment:D-DIMER HS REFERENCE RANGENote: Our [...] Provider LAB BLOOD ORDERAB LES Final Result [facility] [address] [place] [phone] * (ABNORMAL) CBC auto differential (12/29/2024 10:53 AM EST) Only the most recent of5 resultswithin the time period is included. [facility] White Blood Count 13.5(H) 4.8 - 10.8 X10*3/uL [facility] Red Blood Count 3.97(L) 4.20 - 5.50 X10*6/uL [facility] Hemoglobin 11.4(L) 12.0 - 16.0 g/dl [facility] Hematocrit 36.4(L) 37.0 - 47.0 % [facility] Mean Corpuscular Volume 91.7 80.0 - 98.0 fL [facility] Mean Corpuscular Hemoglobin 28.7 27.0 - 33.0 pg [facility] Mean Corpuscular HGB Conc 31.3 31.0 - 35.0 g/dl [facility] Red Cell Distribution Width 14.8 11.0 - 16.0 % [facility] Platelet Count 370 160 - 400 X10*3/uL [facility] Mean Platelet Volume 10.2 9.4 - 12.3 fL [facility] Neutrophils Percent Auto 70.1 45 - 73 % [facility] Imm Gran Pct Auto 1.8(H) 0.0 - 0.4 % [facility] Lymphocytes Percent Auto 18.9(L) 20 - 40 % [facility] Monocytes Percent Auto 7.8 2 - 11 % [facility] Eosinophils Percent Auto 0.7 0 - 4 % [facility] Basophils Percent Auto 0.7 0 - 2 % [facility] NRBC Pct Auto 0.0 0.0 - 0.2 /100WBC [facility] Neutrophils Absolute Auto 9.5(H) 2.0 - 8.3 x10*3/uL [facility] Imm Gran Abs Auto 0.25(H) 0.00 - 0.03 X10*3/uL [facility] Lymphocytes Absolute Auto 2.6 1.2 - 4.9 X10*3/uL [facility] Monocytes Absolute Auto 1.1 0.1 - 1.2 X10*3/uL [facility] Eosinophils Absolute Auto 0.1 0.0 - 0.4 X10*3/uL [facility] Basophils Absolute Auto 0.1 0.0 - 0.2 X10*3/uL [facility] NRBC Abs Auto 0.000 0.0 - 0.012 X10*3/uL [facility] 12/29/2024 10:5 3 AM EST 12/29/2024 1:06 PM EST us Generic External Data Provider LAB BLOOD ORDERAB LES Final Result [facility] [address] [place] [phone] * (ABNORMAL) Uric acid (12/29/2024 10:53 AM EST) Pathologist [facility] Uric Acid 5.8(H) 2.4 - 5.7 mg/dL [facility] Blood Venous blood specimen / Unknown 12/29/2024 10:53 AM EST 12/29/2024 1:06 PM EST Shereen Latham MD LAB BLOOD ORDERABLES Final Result Performing Organization Address [facility] Co de Phone Number [facility] [address] [place] [phone] * Magnesium (12/29/2024 10:53 AM EST) Only the most recent of3 resultswithin the time period is included. Pathologist [facility] Magnesium 1.8 1.6 - 2.6 mg/dL [facility] Blood Venous blood specimen / Unknown 12/29/2024 10:53 AM EST 12/29/2024 1:06 PM EST Shereen Latham MD LAB BLOOD ORDERABLES Final Result Performing Organization Address [facility] de Phone Number [facility] [address] [place] [phone] * (ABNORMAL) Lipid Panel, Standard (12/29/2024 10:53 AM EST) Pathologist [facility] Triglycerides 192(H) <150 mg/dL [facility] Comment:Desirable Triglyceri de: less than 150 mg/dLBorderline High Triglyceride 150-199 mg/dLHigh Triglyceride: 200-499 mg/dLVery High Triglyceride: greater than or equal to 5OO mg/dL Cholesterol 197 <200 mg/dL [facility] Comment:Desirable Cholestero l: less than 200 mg/dLBorderline High Cholesterol: 200-239 mg/dLHigh Cholesterol: greater than 239 mg/dL LDL Cholesterol Calculated 111(H) <100 mg/dL [facility] Comment:Desirable LDL: less than 100 mg/dLNear Optimal/Above Optimal LDL: 110- 129 mg/dLBorderline High LDL: 130-159 mg/dLHigh LDL: 160-189 mg/dLVery High LDL: greater than or equal to 190 mg/dL HDL Cholesterol 48 >40 mg/dL [facility] Comment:Desirable HDL: great er than 40 mg/dL Note: This HDL assay may give artificially low results in patients with liver disease. Blood Venous blood specimen / Unknown 12/29/2024 10:53 AM EST 12/29/2024 1:06 PM EST Shereen Latham MD LAB BLOOD ORDERABLES Final Result [facility] [address] [place] [phone] * (ABNORMAL) Basic Metabolic Panel (12/29/2024 10:53 AM EST) Sodium 139 135 - 145 mmol/L [facility] Potassium 4.1 3.3 - 5.1 mmol/L [facility] Chloride 105 96 - 108 mmol/L [facility] Carbon Dioxide 23 22 - 29 mmol/L [facility] Anion Gap 15 12 - 20 [facility] Urea Nitrogen (BUN) 32(H) 9 - 16 mg/dL [facility] Creatinine, Serum 0.91 0.5 - 1.4 mg/dL [facility] Estimated Glomerular Filt Rate >60 [facility] Comment:Chronic Kidney Disea se: Estimated GFR < 60 mL/min/1.00b0Nrrvpl Kidney Disease: Estimated GFR < 15 mL/min/1.73m2 Glucose 161(H) 60 - 115 mg/dL [facility] Calcium 9.3 8.4 - 10.2 mg/dL [facility] Blood Venous blood specimen / Unknown 12/29/2024 10:53 AM EST 12/29/2024 1:06 PM EST Shereen Latham MD LAB BLOOD ORDERABLES Final Result [facility] [address] [place] [phone] * XR Knee 1-2 Views Right (12/20/2024 7:45 AM EST) Anatomical Region Laterality Modality Lower Extremities, Knee Right Radiogra phic Imaging 12/20/2024 7:45 AM EST Narrative 12/20/2024 8:20 AM EST ? [facility] ?[address] ?[place] [address] ?XRay Report ? Signed ? Patient: Azra Cast ?MR#: [id number] ?? 3774 ? : 1975 ?Acct:[id number] ? Age/Sex: 49 / F ?ADM Date: 12/20/24 ? Loc: HO.ED ? Attending Dr: ? Ordering Physician: Boby Dykes MD ?? Date of Service: 12/20/24 ?? Procedure(s): XR knee RT 2V ?? Accession Number(s): [id number] ? cc: Shereen Latham MD; Boby Dykes [...] DD/ 0745 ? TD/TT: 12/20/24 0751 ? Online Trader: ? Procedure Note Donalonzoter, Image - 12/20/[address] [address] XRay Report Signed Patient: Maged Cast#: [id number] : 1975Acct:[id number] Age/Sex: 49 / FADM Date: 12/20/24 Loc: HO.ED Attending Dr: Ordering Physician: Boby Dykes MD Date of Service: 12/20/24 Procedure(s): XR knee RT 2V Accession Number(s): [id number] cc: Shereen Latham MD; Boby Dykes MD [...] 12/20/24 0817 DD/ 0745 TD/TT: 12/20/24 0751 Online Trader: [facility] External Provider IMG XR PROCEDURES Edited Result - Final * XR Chest 1 View (12/11/2024 12:34 AM EST) Anatomical Region Laterality Modality Chest Radiographic Celina ging 12/11/2024 12:3 4 AM EST Narrative 12/11/2024 12:37 AM EST ? [facility] ?[address] ?[place] [address] ?XRay Report ? Signed ? Patient: Cast,Azra ?MR#: [id number] ?? 3774 ? : 1975 ?Acct:[id number] ? Age/Sex: 49 / F ?ADM Date: 12/10/24 ? Loc: HO.ED ? Attending Dr: ? Ordering Physician: Sury Bustamante MD ?? Date of Service: 12/10/24 ?? Procedure(s): XR chest 1V ?? Accession Number(s): [id number] ? cc: Shereen Latham MD; Sury Bustamante MD ? CLINICAL HISTORY: chest pain cough ? 1 view chest x-ray ? Comparison: CR/RI - XR CHEST 2V - 10/31/24 17:50 [...] Vazquez MD in OV> ?12/11/246 ? DD/ ? TD/TT: 12/11/2433 ? Online Trader: ? Procedure Note Gypsy Jonas - 12/11/[address] [address] XRay Report Signed Patient: Maged Cast#: [id number] : 1975Acct:[id number] Age/Sex: 49 / FADM Date: 12/10/24 Loc: HO.ED Attending Dr: Ordering Physician: Sury Bustamante MD Date of Service: 12/10/24 Procedure(s): XR chest 1V Accession Number(s): [id number] cc: Shereen Latham MD; Sury Bustamante MD CLINICAL HISTORY: chest pain cough 1 view chest x-ray Comparison: CR/RI - XR CHEST 2V - 10/31/24 17:50 EST Findings: No consolidation or effusion. Heart size is normal. No acute fracture. Right breast implant. IMPRESSION: 1. No acute cardiopulmonary findings. This document has been electronically signed by: Ashley Vazquez MD on 12/11/2024 00:34:57 Dictated By: Ashley Vazquez MD Signed By: <Electronically signed by Aslhey Vazquez MD in OV> 12/11/2435 DD/ TD/TT: 12/11/2433 Online Trader: [facility] External Provider IMG XR PROCEDURES Final Result * High Sensitivity Troponin I (12/10/2024 11:48 PM EST) Only the most recent of3 resultswithin the time period is included. Pathologist [facility] TROPONIN I HIGH SENSITIVITY 8.0 <3.5 - 17.0 ng/L [facility] Comment:The Henriquez high sens itivity Troponin-I results should beused in conjunction with other diagnostic information suchas ECG, clinical observations and information, and patientsymptoms to aid in the diagnosis of [place]. 12/10/2024 11:4 8 PM EST 12/10/2024 11:53 PM EST Generic External Data Provider LAB BLOOD ORDERAB LES Final Result [facility] [address] [place] [phone] * SARS-CoV-2 RNA, Influenza A/B, and RSV RNA, Ql NAAT (12/10/2024 11:48 PM EST) Only the most recent of3 resultswithin the time period is included. Pathologist [facility] Influenza A PCR NEGATIVE Negative [facility] Influenza B PCR NEGATIVE Negative [facility] Resp Syncy Virus RNA Qual PCR NEGATIVE Negative [facility] SARS COV2 PCR NEGATIVE Negative [facility] Comment:All test results mus t [...] use by authorized laboratories.Testing performed on the [employer] GeneXpert utilizingreal-time RT-PCR.All SARS CoV2 and positive influenza A/B results arereported to [facility]. 12/10/2024 11:4 8 PM EST 12/10/2024 11:53 PM EST Generic External Data Provider LAB MICROBIOLOGY - GENERAL ORDERABLES Final Result Performing Organization Address [facility] Co de Phone Number [facility] [address] [place] [phone] * B Type Natriuretic Peptide (BNP) (12/10/2024 11:48 PM EST) Pathologist [facility] B Type Natriuretic Peptide 14 <100 pg/mL [facility] Comment:For those patients w ho are being treated with Natrecor(nesiritide, recombinant BNP), BNP testing should beperformed at least two hours post treatment in order toensure that only endogenous levels of BNP are detected. 12/10/2024 11:4 8 PM EST 12/10/2024 11:53 PM EST Generic External Data Provider LAB BLOOD ORDERAB LES Final Result Performing Organization Address [facility] Co de Phone Number [facility] [address] [place] [phone] * (ABNORMAL) Comprehensive Metabolic Panel (12/10/2024 11:48 PM EST) Only the most recent of4 resultswithin the time period is included. Sodium 143 135 - 145 mmol/L [facility] Potassium 3.7 3.3 - 5.1 mmol/L [facility] Chloride 108 96 - 108 mmol/L [facility] Carbon Dioxide 23 22 - 29 mmol/L [facility] Anion Gap 16 12 - 20 [facility] Urea Nitrogen (BUN) 24(H) 9 - 16 mg/dL [facility] Creatinine, Serum 1.11 0.5 - 1.4 mg/dL [facility] Creatinine Clr Calc Pharmacy 69.3 [facility] Comment:Provided height and weight: 170.18 cm,90.7 kg.eGFR (calculated from the MDRD study equation) and eCrCl(calculated from the Cockcroft-Gault equation) are based ondifferent parameters and may not yield comparable results.If eCrCl result is absurd, please check patient'sheight/weight. Estimated Glomerular Filt Rate 52 [facility] Comment:Chronic Kidney Disea se: Estimated GFR < 60 mL/min/1.13c9Ghazkd Kidney Disease: Estimated GFR < 15 mL/min/1.73m2 Glucose 150(H) 60 - 115 mg/dL [facility] Calcium 9.3 8.4 - 10.2 mg/dL [facility] Bilirubin, Total 0.2 0.0 - 1.0 mg/dL [facility] Aspartate Amino Transferase 19 5 - 31 U/L [facility] Alanine Aminotransferase 14 0 - 31 U/L [facility] Total Protein 7.6 6.5 - 8.0 g/dL [facility] Albumin Level 4.0 3.5 - 5.0 g/dL [facility] Alkaline Phosphatase 87 39 - 117 U/L [facility] 12/10/2024 11:4 8 PM EST 12/10/2024 11:53 PM EST us Generic External Data Provider LAB BLOOD ORDERAB LES Final Result [facility] [address] [place] [phone] * CT Abdomen Pelvis w/ Contrast (12/06/2024 1:20 PM EST) Anatomical Region Laterality Modality Body, Pelvis, Abdomen Computed T omography 12/06/2024 1:20 PM EST Narrative 12/06/2024 2:00 PM EST ? [facility] ?[address] ?[place] [address] ? CT Scan Report ? Signed ? Patient: Segun,Azra ?MR#: [id number] ?? 3774 ? : 1975 ?Acct:[id number] ? Age/Sex: 49 / F ?ADM Date: 12/06/24 ? Loc: HO.ED ? Attending Dr: ? Ordering Physician: Leighann Ordonez DO ?? Date of Service: 12/06/24 ?? Procedure(s): CT abdomen pelvis w IV con ?? Accession Number(s): [id number] ? cc: Shereen Latham MD; Leighann Ordonez DO ? Report Number: ?? [id number]: Total DLP = ??712.00 mGy-cm ?? EXAMINATION: [...] DD/ 1320 ? TD/TT: 12/06/24 1333 ? Online Trader: ? Procedure Note Sumi, Gypsy - 12/06/[address] [address] [address] Scan Report Signed Patient: Maged Cast#: [id number] : 1975Acct:[id number] Age/Sex: 49 / FADM Date: 12/06/24 Loc: HO.ED Attending Dr: Ordering Physician: Leighann Ordonez DO Date of Service: 12/06/24 Procedure(s): CT abdomen pelvis w IV con Accession Number(s): [id number] cc: Shereen Latham MD; Leighann Ordonez DO Report Number: [id number]: Total DLP = 712.00 mGy-cm EXAMINATION: CT [...] 12/06/24 1358 DD/ 1320 TD/TT: 12/06/24 1333 Online Trader: [facility] External Provider IMG CT PROCEDURES Final Result * Urinalysis w/reflex microscopic (12/06/2024 11:14 AM EST) Color Urine Yellow [facility] Appearance Urine Clear [facility] PH 6.0 5.0 - 9.0 [facility] Glucose Urine UA Negative Negative mg/dL [facility] Urine Blood Negative Negative [facility] Specific [place] - Urine 1.025 1.005 - 1.025 [facility] Urine Protein Negative Neg-Trace mg/dL [facility] Urine Ketones Negative Negative mg/dL [facility] Nitrite Urine Negative Negative [facility] Leukocyte Esterase Urine Negative Negative [facility] 12/06/2024 11:1 4 AM EST 12/06/2024 11:18 AM EST Narrative [facility] - 12/06/2024 11:22 AM EST Urine, Clean Catch Generic External Data Provider LAB URINE ORDERAB LES Final Result Performing Organization Address [facility] de Phone Number [facility] [address] [place] [phone] * Lipase (12/06/2024 9:42 AM EST) Only the most recent of2 resultswithin the time period is included. Lipase 50 8 - 78 U/L [facility] 12/06/2024 9:42 AM EST 12/06/2024 9:45 AM EST Generic External Data Provider LAB BLOOD ORDERAB LES Final Result Performing Organization Address [facility] Phone Number [facility] [address] [place] [phone] * Iron And Total Iron Binding Capacity (11/08/2024 2:48 PM EST) Iron 66 30 - 160 mcg/dL [facility] Total Iron Binding Capacity 292 228 - 428 mcg/dL [facility] Percent Iron Saturation 23 15 - 50 % [facility] Unsaturated Iron Binding 226 ug/dL [facility] Blood Venous blood specimen / Unknown 11/08/2024 2:48 PM EST 11/08/2024 4:08 PM EST Shereen Latham MD LAB BLOOD ORDERABLES Final Result Performing Organization Address [facility] Co de Phone Number [facility] [address] [place] [phone] * Immunoglobulin E (11/08/2024 2:48 PM EST) Immunoglobulin E 17 <RI=693 kU/L [facility] Comment:THIS TEST WAS PERFOR MED AT:[employer] [place] [phone] BRINK MD 11/08/2024 2:48 PM EST 11/08/2024 4:08 PM EST Generic External Data Provider LAB BLOOD ORDERAB LES Final Result Performing Organization Address [facility] de Phone Number [facility] [address] [place] [phone] * Ferritin (11/08/2024 2:48 PM EST) Pathologist [facility] Ferritin 180 10 - 250 ng/mL [facility] Blood Venous blood specimen / Unknown 11/08/2024 2:48 PM EST 11/08/2024 4:08 PM EST Shereen Latham MD LAB BLOOD ORDERABLES Final Result Performing Organization Address [facility] de Phone Number [facility] [address] [place] [phone] * Vitamin B12 (11/08/2024 2:48 PM EST) Pathologist [facility] Vitamin B12 499 200 - 900 pg/mL [facility] Comment:NORMAL 200-900 PG/ML INDETERMINATE 160-199 PG/ML DEFICIENT < 160 PG/ML Blood Venous blood specimen / Unknown 11/08/2024 2:48 PM EST 11/08/2024 4:08 PM EST Shereen Latham MD LAB BLOOD ORDERABLES Final Result Performing Organization Address [facility] de Phone Number [facility] [address] [place] [phone] * Prothrombin Time-INR (10/31/2024 6:39 PM EST) Pathologist [facility] Prothrombin Time 11.6 10.9 - 12.4 SEC [facility] INTERNATIONAL NORM RATIO 1.0 0.9 - 1.1 [facility] Comment:INTERNATIONAL NORMAL IZED RATIO (INR) [...] 6:39 PM EST 10/31/2024 6:41 PM EST us Generic External Data Provider LAB BLOOD ORDERAB LES Final Result [facility] [address] [place] [address] [phone] * XR Chest 2 Views (10/31/2024 6:15 PM EST) Anatomical Region Laterality Modality Chest Radiographic Celina ging 10/31/2024 6:15 PM EST Narrative 10/31/2024 6:17 PM EST ? [facility] ?[address] ?[place] [address] ?XRay Report ? Signed ? Patient: Azra Cast ?MR#: [id number] ?? [id number] ? : 1975 ?Acct:[id number] ? Age/Sex: 48 / F ?ADM Date: 10/31/24 ? Loc: HO.ED ? Attending Dr: ? Ordering Physician: Tesfaye Allen ?? Date of Service: 10/31/24 ?? Procedure(s): XR chest 2V ?? Accession Number(s): [id number] ? cc: Shereen Latham MD; Tesfaye Allen [...] signed by Jax Rivera MD in OV> ?10/31/246 ? DD/ 1815 ? TD/TT: 10/31/241814 ? Online Trader: ? Procedure Note Donalonzoter, Image - 10/31/2024 [place] [address] XRay Report Signed Patient: Maged Cast#: [id number] : 1975Acct:[id number] Age/Sex: 48 / FADM Date: 10/31/24 Loc: HO.ED Attending Dr: Ordering Physician: Tesfaye Allen Date of Service: 10/31/24 Procedure(s): XR chest 2V Accession Number(s): [id number] cc: Shereen Latham MD; Tesfaye Allen CLINICAL [...] document has been electronically signed by: Jax Rievra MD on 10/31/2024 18:15:32 Dictated By: Jax Rivera MD Signed By: <Electronically signed by Jax Rivera MD in OV> 10/31/241815 DD/ 14 TD/TT: 10/31/241814 Online Trader: us [facility] External Provider IMG XR PROCEDURES Final Result * CT Chest w/o Contrast (10/24/2024 4:44 PM EST) Anatomical Region Laterality Modality Body, Chest Computed Tomogra phy 10/24/2024 4:44 PM EST Narrative 11/14/2024 11:53 AM EST ? [facility] ?[address] ?[place] [address] ? CT Scan Report ? Signed ? Patient: Cast,[facility] ?MR#: [id number] ?? [id number] ? : 1975 ?Acct:[id number] ? Age/Sex: 48 / F ?ADM Date: 10/24/24 ? Loc: HO.CT ? Attending Dr: Sury Benitez SNUBBER ? Ordering Physician: Sury Benitez NP ?? Date of Service: 10/24/24 ?? Procedure(s): CT chest wo IV con ?? Accession Number(s): [id number] ? cc: Shereen Latham MD; Sury Benitez NP ? Report Number: ?? [id number]: Total DLP = ??321.00 mGy-cm ?? EXAMINATION: [...] Exam submitted for review 11/14/2024 10:14 AM DIAMOND CLEAVER. ? FINDINGS: ? PULMONARY NODULES: ?? -There [...] DD/ 1644 ? TD/TT: 10/24/24 1657 ? Online Trader: ? Procedure Note Sumi, Gypsy - 11/14/[address] [address] [address] Scan Report Signed Patient: Maged Cast#: [id number] : 1975Acct:[id number] Age/Sex: 48 / FADM Date: 10/24/24 Loc: HO.CT Attending Dr: Sury Benitez NP Ordering Physician: Sury Benitez NP Date of Service: 10/24/24 Procedure(s): CT chest wo IV con Accession Number(s): [id number] cc: Shereen Latham MD; Sury Benitez NP Report Number: [id number]: Total DLP = 321.00 mGy-cm EXAMINATION: CT [...] Exam submitted for review 11/14/2024 10:14 AM DIAMOND CLEAVER. FINDINGS: PULMONARY NODULES: -There are a few [...] by: Akbar Galicia MD 11/14/2024 11:50 AM [facility] Dictated By: Akbar Galicia MD Signed By: <Electronically signed by Akbar Galicia MD in OV> 11/14/24 1150 DD/ 1644 TD/TT: 10/24/24 1657 Online Trader: [facility] External Provider IMG CT PROCEDURES Edited Result - Final * (ABNORMAL) Colonoscopy (07/11/2024) Colonoscopy Abnormal( A) Normal Comment:Herberth Stokes MD ?tubular adenoma x 3 Herberth Stokes MD HEALTH MAINTENANCE Final Result * Hepatitis Panel, General (06/16/2024 8:22 AM EDT) Hepatitis A IgM Nonreactive Nonreactive [facility] Comment:IgM antibodies to VIRAMONTES V not detected; does not exclude earlyacute or recovered HAV infection. ~Hepatitis B Surface Antibody REACTIVE Nonreactive [facility] Comment:REACTIVE: > 11.99 mI U/mL Hepatitis B Core Antibody Nonreactive Nonreactive [facility] Hepatitis C Antibody Nonreactive Nonreactive [facility] Comment:Antibodies to HCV no t detected; does not exclude early acuteHCV infection. Hepatitis B Surface Ag Negative Negative [facility] Blood Venous blood specimen / Unknown 06/16/2024 8:22 AM EDT 06/16/2024 11:18 AM EDT us Shereen Latham MD LAB BLOOD ORDERABLES Final Result Performing Organization Address [facility]/ZIP Co de Phone Number [facility] [address] [place] [phone] * HIV-1/2 Antigen and Antibodies, Fourth Generation, with Reflexes (02/24/2024 8:47 AM EDT) HIV AB/AG Nonreactive Nonreactive [facility] Comment:HIV-1 p24 Ag and/or HIV-1/HIV-2 Ab not detected.A test result that is nonreactive does not exclude thepossibility of exposure to or infection with HIV-1 and/orHIV-2. Nonreactive results in this assay for individualswith prior exposure to HIV-1 and/or HIV-2 may be due toantigen and antibody levels that are below the limit ofdetection of this assay.The [employer] HIV Ag/Ab Combo assay result andsupplemental assay results should be interpreted inconjunction with the patient's clinical presentation,history and other laboratory results. If the results areinconsistent with clinical evidence, additional testing issuggested to confirm the result. Blood Venous blood specimen / Unknown 02/24/2024 8:47 AM EDT 02/24/2024 11:22 AM EDT us Naomi ORDAZ LAB BLOOD ORDERABLES Final Resul t Performing Organization Address [facility]/ZIP Co de Phone Number [facility] [address] [place] [phone] * BI Mammogram Screening Tomosynthesis Left (08/27/2023 1:00 PM EDT) Anatomical Region Laterality Modality Breast Left Mammography 08/27/2023 1:00 PM EDT Narrative 09/14/2023 6:06 AM EST ? [facility] ? [address] ?[place] [address] ? Mammography Report ? Signed ? Patient: Segun,Azra ?MR#: [id number] ?? [id number] ? : 1975 ?Acct:[id number] ? Age/Sex: 47 / F ?ADM Date: 08/27/23 ? Loc: HO.MAMMO ? Attending Dr: Bhupinder Bennett MD ? Ordering Physician: Li Grande MD ?Results: 1Negat ?? dasia ? Date of Service: 08/27/23 ?Follow Up: 1 Year From Orig ?? inal Mammogram ? Procedure(s): MM tomosynthesis screening LT ?? Accession Number(s): [id number] ? cc: Bhupinder Bennett MD; Li Grande [...] by Fabiola Flores MD in OV> ? 11/13/23 0602 ? DD/ 1300 ? TD/TT: ? Online Trader: ? Procedure Note Sumi, Gypsy - 09/14/2023 [place] [facility] [address] [place] [address] Mammography Report Signed Patient: Maged Cast#: [id number] : 1975Acct:[id number] Age/Sex: 47 / FADM Date: 08/27/23 Loc: HO.MAMMO Attending Dr: Bhupinder Bennett MD Ordering Physician: Li Grande MDResults: 1Negat dasia Date of Service: 08/27/23Follow Up: 1 Year From Orig inal Mammogram Procedure(s): MM tomosynthesis screening LT Accession Number(s): [id number] cc: Bhupinder Bennett MD; Li Grande MD [...] in OV> 09/14/23 0602 DD/ 1300 TD/TT: Online Trader: [facility] External Provider IMG BI PROCEDURES Final Result * (ABNORMAL) Cologuard?? colon cancer screening (08/27/2023 11:24 AM EDT) Cologuard Result Positive( A) Negative 09/05/2023 10:16 PM EDT [facility] (CLIA #:[id number]) Comment: POSITIVE TEST RESULT. A positive Cologuard [...] screened with both Cologuard and colonoscopy. (Felix Menendez et al, N Engl J Med 2014;370(14):1002-6719.) Cologuard may produce a false negative or false positive result (no colorectal cancer or precancerous polyp present at colonoscopy follow up). A negative Cologuard test result does not guarantee the absence of CRC or advanced adenoma (pre-cancer). The current Cologuard screening interval is every 3 years. ([employer] Cancer Society and U.S. Multi-Society Task Force). Cologuard performance data in a 10,000 patient pivotal study using colonoscopy as the reference method can be accessed at the following location: www.Batiweb.com/results. Additional description of the Cologuard test process, warnings and precautions can be found at www.VaavudogSampleBoardrd.[employer]. Stool specimen (specimen) 08/27/2023 11:24 AM EDT 08/29/2023 6:48 AM EDT Shereen Latham MD LAB MOLECULAR DIAGNOSTICS ORDERABLES Final Result [facility] (CLIA #:[id number]) [address] [place] [address], * HPV mRNA E6/E7 (08/12/2018 10:57 AM EDT) HPV mRNA E6/E7 Not Detected NOT DETECTED [facility] Comment: This test was performed using the APTIMA(R) HPV Assay ([employer] This assay detects E6/E7 viral messenger RNA (mRNA) from 14 high-risk HPV types (16,18,31,33,35,39,45,51, 52,56,58,59,66,68). For additional information please refer to: http://education.Game[employer]/faq/HIO298r9 (This link is being provided for informational/ educational purposes only.) The analytical performance characteristics of this assay have been determined by [facility] [place], [place]. The modifications have not been cleared or approved by the FDA. This assay has been validated pursuant to the CLIA regulations and is used for clinical purposes. Test Performed by [facility], [facility] [place], [address] [place] [address] Dwaine Morelos M.D., Ph.D., Director of Laboratories , CLIA [id number] Please note: ??Effective 07/14/2016, HPV testing will be performed using [employer]'s APTIMA test which targets mRNA. Detecting mRNA instead of DNA, as in older methods, offers significant improvements in specificity. 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 Advance Directives and Living Will 07/05/2024 11:59 AM Health Care Proxy Care Teams Electrical Continuity Tester Relationship Specialty Start Date End Date [place], MD Shereen [address] [place] [address] PCP - General Family Medicine 11/02/18 Nupur Bullock PharmD [address] [place], [place] Pharmacist Internal Medicine 08/09/24 Sury Benitez [address] [place] [address] [place] [address] [place] [address] Pulmonary Disease 09/27/24 Nirali Madrid OD [address] [place] [address] Optometry 10/27/24 Li Grande MD [address] [place] [address] Hematology and Oncology 10/27/24 Anselmo Gates MD [address] [place] [address] Orthopaedic Surgery 10/27/24 Margaret Holman [address] 3rd [place] [address] Cardiology 10/27/24 Herberth Stokes MD [address] 3rd [place] [address] Gastroenterology 10/27/24 Piyl Delaney Grab Jack WorkerPlaster Die Maker 07/22/24 Elie Vicky [facility] Psychology 12/29/24
--- OUTSIDE RECORDS SUMMARY | 2025-01-19 17:27 | XMS_ITS | Encounter Summary ---
Author Organization [email or web address] Address [address] [facility] 7t [place] [address] Care Team Providers Care Hardboard Panel Printer Name Role Phone Shereen Latham MD Primary Care Provider [phone] Nupur Bullock PharmD Unavailable Sury Benitez Unavailable [phone] Nirali Madrid OD Unavailable [phone] Li Grande MD Unavailable [phone] Anselmo Gates MD Unavailable Margaret Holman Unavailable Herberth Stokes MD Unavailable [phone] Encounter Details Date Type Department Care Team (Late st Contact Info) Description 04/26/2024 Orders Only [facility] MEDICINE [address] [place], [place] [phone] Junie Damon MD [address] [place], [place] [phone] Social History Tobacco Use Types Packs/Day Years [...] Description 01/24/2025 1:00 PM EDT Clinical Support [facility] DIABETES/NUTRITION [address] [place] [address] [place] [address] 03/29/2025 2:00 PM EDT Office Visit [facility] ADULT DENTAL [address] [place] [address] Jenny Gordon [address] [place] [address] documented as of this encounter Visit Diagnoses Not on filedocumented in this encounter Additional Health Concerns Assessment Noted Time PHQ-9 Depression Total Score: 23 024 1:45 PM EDT documented as of this encounter Care Teams Hardboard Panel Printer Relationship Specialty Start Date End Date Shereen Latham MD [address] [place] [address] PCP - General Family Medicine 11/02/18 Nupur Bullock, CharleneD [address] [place] [address] Pharmacist Internal Medicine 08/09/24 Sury Benitez [address] [place] [address] [address] Pulmonary Disease 09/27/24 Nirali Madrid OD [address] [place] [address] Optometry 10/27/24 Li Grande MD [address] [place] [address] Hematology and Oncology 10/27/24 Anselmo Gates MD [address] [facility] [address] [address] [place] [address] Orthopaedic Surgery 10/27/24 Margaret Holman [address] [facility] 3rd [place] [address] Cardiology 10/27/24 Herberth Stokes MD [address] [facility] 3rd [place] [address] Gastroenterology 10/27/24 Pily Delaney Personal Injury Legal AssistantLinemarker 07/22/24 Elie Vicky [facility] 12/29/24 documented as of this encounter
--- OUTSIDE RECORDS SUMMARY | 2025-01-19 17:27 | XMS_ITS | Encounter Summary ---
Author Organization [employer] Address [address] [facility] 7t [place] [address] Care Team Providers Care Cesspool Cleaner Name Role Phone Shereen Latham MD Primary Care Provider [phone] Nupur Bullock PharmD Unavailable Sury Benitez Unavailable [phone] Nirali Madrid OD Unavailable Li Grande MD Unavailable [phone] Anselmo Gates MD Unavailable Margaret Holman Unavailable Herberth Stokes MD Unavailable [phone] Reason for Visit * Reason Onset Date Comments Medication Question 07/05/2024 Encounter Details Date Type Department Care Team (Late st Contact Info) Description 07/05/2024 Telephone [facility] MEDICINE [address] [place], [place] [phone] Shereen Latham MD [address] [place], [place] [phone] Medication Question Social History Tobacco Use Types [...] last message. * Telephone Encounter - Jenny Santosh - 07/05/2024 10:01 AM EDT Tc from pt requesting to speak to a nurse regarding medication allopurinol (Zyloprim) 100 MG tablet. Pt would like to review med list to confirm there is no medication interaction. Contact pt at [phone] documented in this encounter Plan of Treatment Upcoming Encounters Date Type Department Care Team (Late st Contact Info) Description 01/24/2025 1:00 PM EDT Clinical Support [facility] DIABETES/NUTRITION [address] [place] [address] Ernestina Esteban, RD 230 [place] [address] 03/29/2025 2:00 PM EDT Office Visit [facility] ADULT DENTAL [address] [place] [address] Heidi, Jenny [address] [place] [address] documented as of this encounter Visit Diagnoses Diagnosis Pain Generalized pain documented in this encounter Additional Health Concerns Assessment Noted Time PHQ-9 Depression Total Score: 13 024 4:53 PM EDT documented as of this encounter Care Teams Cesspool Cleaner Relationship Specialty Start Date End Date Shereen Latham MD [address] [place] [address] PCP - General Family Medicine 11/02/18 Nupur Bullock, CharleneD [address] [place] [address] Pharmacist Internal Medicine 08/09/24 Sury Benitez [address] [facility] [address] [place] [address] Pulmonary Disease 09/27/24 Nirali Madrid OD [address] [place] [address] Optometry 10/27/24 Li Grande MD [address] [place] [address] Hematology and Oncology 10/27/24 Anselmo Gates MD [address] [facility] [address] [place] [address] Orthopaedic Surgery 10/27/24 Margaret Holman [address] [facility] 3[address] [place] [address] Cardiology 10/27/24 Herberth Stokes MD [address] [facility] [address]rd [place] [address] Gastroenterology 10/27/24 Pily Delaney Agriscience Technology InstructorCommunity Services Manager 07/22/24 Elie BRASHER [facility] Psychology 12/29/24 documented as of this encounter
--- OUTSIDE RECORDS SUMMARY | 2025-01-19 17:27 | XMS_ITS | Encounter Summary ---
Author Organization [employer] Address [address] [facility] 7t [place] [address] Care Team Providers Care Director Of Quality Improvement Name Role Phone Shereen Latham MD Primary Care Provider [phone] Nupur Bullock PharmD Unavailable Sury Benitez Unavailable [phone] Nirali Madrid OD Unavailable [phone] Li Grande MD Unavailable [phone] Anselmo Gates MD Unavailable Margaret Holman Unavailable Herberth Stokes MD Unavailable [phone] Reason for Visit * Reason Onset Date Comments Med Refill 01/17/2025 Encounter Details Date Type Department Care Team (Late st Contact Info) Description 01/17/2025 Refill [facility] MED & PEDS [address] [place], [place] [phone] Mayda [place] MD [address] [place] [address] Pain Social History Tobacco Use Types Packs/Day [...] Description 01/24/2025 1:00 PM EDT Clinical Support [facility] DIABETES/NUTRITION [address] [place] [address] [place] [address] 03/29/2025 2:00 PM EDT Office Visit [facility] ADULT DENTAL [address] [place] [address] Jenny Gordon [address] [place] [address] documented as of this encounter Visit Diagnoses Diagnosis Pain Generalized pain documented in this encounter Additional Health Concerns Assessment Noted Time PHQ-9 Depression Total Score: 22 025 10:17 AM EST documented as of this encounter Care Teams Director Of Quality Improvement Relationship Specialty Start Date End Date Shereen Latham MD [address] [place] [address] PCP - General Family Medicine 11/02/18 Nupur Bullock, CharleneD [address] [place] [address] Pharmacist Internal Medicine 08/09/24 Sury Benitez [address] [place] [address] [address] [place] [address] Pulmonary Disease 09/27/24 Nirali Madrid OD [address] [place] [address] Optometry 10/27/24 Li Grande MD [address] [place] [address] Hematology and Oncology 10/27/24 Anselmo Gates MD [address] [facility] [address] [place] [address] Orthopaedic Surgery 10/27/24 Margaret Holman [address] [facility] 3rd [place] [address] Cardiology 10/27/24 Herberth Stokes MD [address] [facility] [address]rd [place] [address] Gastroenterology 10/27/24 Pily Delaney Workforce ConsultantDevelopmental Training Counselor 07/22/24 Elie BRASHER [facility] Psychology 12/29/24 documented as of this encounter
--- OUTSIDE RECORDS SUMMARY | 2025-01-19 17:27 | XMS_ITS | Encounter Summary ---
Author Organization [employer] Address 75 [facility] 7t [place] [address] Care Team Providers Care Parts Counterperson Name Role Phone Shereen Latham MD Primary Care Provider Nupur Bullock PharmD Unavailable Sury Benitez Unavailable [phone] Nirali Madrid OD Unavailable Li Grande MD Unavailable [phone] Anselmo Gates MD Unavailable Margaret Holman Unavailable Herberth Stokes MD Unavailable [phone] Reason for Referral * Imaging (Routine) - Authorized Specialty Diagnoses / Procedures Referred By Walter nelson Referred To Contact Radiology Diagnoses Breast pain, left Procedures BI Mammogram Diagnostic Tomosynthesis Left Stacey Khan MD [address] [place] [address] Phone: tel: fax: [facility] [address] [place] [address] Phone: tel: fax: Referral ID Status Reason Start Date Expiration Date V isits Requested Visits Authorized [id number] Authorized 01/19/2025 01/19/2026 1 1 * Imaging (Routine) - Authorized Specialty Diagnoses / Procedures Referred By Walter t Referred To Contact Radiology Diagnoses Breast pain, left Procedures BI US Breast Limited Left Stacey Khan MD [address] [place] [address] Phone: tel: fax: [address] Phone: tel: fax: Referral ID Status Reason Start Date Expiration Date V isits Requested Visits Authorized [id number] Authorized 01/19/2025 01/19/2026 1 1 Encounter Details Date Type Department Care Team (Late st Contact Info) Description 01/19/2025 Orders Only [facility] MEDICINE [address] [place], [place] [phone] Stacey Khan MD [address] [place] [address] Breast pain, left (Primary Dx) Social History Tobacco Use Types [...] the past 12 months, has t he [employer] gas, oil or water company threatened to [...] Description 01/24/2025 1:00 PM EDT Clinical Support [facility] DIABETES/NUTRITION [address] [place] [address] Ernestina Esteban, RD [address] [place] [address] 03/29/2025 2:00 PM EDT Office Visit [facility] ADULT DENTAL [address] [place] [address] Heidi, Jenny [address] [place] [address] Scheduled Orders Name Type Priority Associated Diagnoses Orde r Schedule BI US Breast Limited Left Imaging Routine Breast pain, left Expected: 01/19/2025, Expires: 01/19/2026 BI Mammogram Diagnostic Tomosynthesis Left Imaging Routine Breast pain, left Expected: 01/19/2025, Expires: 03/21/2026 documented as of this encounter Visit Diagnoses Diagnosis Breast pain, left- Primary documented in this encounter Additional Health Concerns Assessment Noted Time PHQ-9 Depression Total Score: 22 025 10:17 AM EST documented as of this encounter Care Teams Parts Counterperson Relationship Specialty Start Date End Date Shereen Latham MD [address] [place] [address] PCP - General Family Medicine 11/02/18 Nupur Bullock, CharleneD [address] [place] [address] Pharmacist Internal Medicine 08/09/24 Sury Benitez [address] [place] [address] Dr [facility] 103 [place] [address] Pulmonary Disease 09/27/24 Nirali Madrid OD [address] [place] [address] Optometry 10/27/24 Li Grande MD [address] [place] [address] Hematology and Oncology 10/27/24 Anselmo Gates MD 10 [facility] 203 [place] [address] Orthopaedic Surgery 10/27/24 Margaret Holman [address] [facility] 3[address] [place] [address] Cardiology 10/27/24 Herberth Stokes MD [address] [facility] [address] [place] [address] Gastroenterology 10/27/24 Pily Delaney Breaker BossJob Change Crew Member 07/22/24 Elie Vicky [facility] 12/29/24 documented as of this encounter
--- OUTSIDE RECORDS SUMMARY | 2025-01-19 17:27 | XMS_ITS | Encounter Summary ---
Author Organization [employer] Address 75 [facility] 7t [place] [address] Care Team Providers Care Aircraft Technician Name Role Phone Shereen Latham MD Primary Care Provider [phone] Nupur Bullock PharmD Unavailable Sury Benitez Unavailable [phone] Nirali Madrid OD Unavailable Li Grande MD Unavailable [phone] Anselmo Gates MD Unavailable Margaret Holman Unavailable Herberth Stokes MD Unavailable [phone] Reason for Visit * Reason Onset Date Comments Nurse Triage 05/25/2024 Encounter Details Date Type Department Care Team (Late st Contact Info) Description 05/25/2024 Telephone [facility] MEDICINE [address] [place], [place] [phone] Shereen Latham MD 230 [place], [place] [phone] Nurse Triage Social History Tobacco Use Types [...] leftfoot pain and Pt was seen by sales representative livestock, Leta Lunsford MD 05/11/24 also (report is on the chart). Pt had been advised to stop BP med chlorthalidone per sales representative livestock [facility] because that particular medication is known to [...] anxiety. Pt is advised to come to [facility] today , open till 8pm, to [...] Description 01/24/2025 1:00 PM EDT Clinical Support [facility] DIABETES/NUTRITION 230 [place] [address] [place] [address] 03/29/2025 2:00 PM EDT Office Visit [facility] ADULT DENTAL [address] [place] [address] Jenny Gordon [address] [place] [address] documented as of this encounter Visit Diagnoses Not on filedocumented in this encounter Additional Health Concerns Assessment Noted Time PHQ-9 Depression Total Score: 22 024 9:12 AM EDT documented as of this encounter Care Teams Aircraft Technician Relationship Specialty Start Date End Date Shereen Latham MD 230 [place] [address] PCP - General Family Medicine 11/02/18 Nupur Bullock PharmD 230 [place] [address] Pharmacist Internal Medicine 08/09/24 Sury Benitez [address] [place] [address] Dr [facility] 103 [place] [address] Pulmonary Disease 09/27/24 Nirali Madrid OD 267 [place] [address] Optometry 10/27/24 Li Grande MD [address] [place] [address] Hematology and Oncology 10/27/24 Anselmo Gates MD [address] [facility] [address] [place] [address] Orthopaedic Surgery 10/27/24 Margaret Holman 11 [facility] 3rd [place] [address] Cardiology 10/27/24 Herberth Stokes MD [address] [facility] [address] [place] [address] Gastroenterology 10/27/24 Pily Delaney Stage ProducerCollection Systems Worker 07/22/24 Elie Vicky [facility] Psychology 12/29/24 documented as of this encounter
--- OUTSIDE RECORDS SUMMARY | 2025-01-19 17:27 | XMS_ITS | Encounter Summary ---
Author Organization [employer] Address 75 [facility] 7t [place] [address] Care Team Providers Care Monument Erector Name Role Phone Shereen Latham MD Primary Care Provider [phone] Nupur Bullock PharmD Unavailable Sury Benitez Unavailable [phone] Nirali Madrid OD Unavailable [phone] Li Grande MD Unavailable [phone] Anselmo Gates MD Unavailable Margaret Holman Unavailable Herberth Stokes MD Unavailable [phone] Reason for Visit * Reason Comments Med Refill Encounter Details Date Type Department Care Team (Late st Contact Info) Description 01/17/2025 Refill [facility] CHC MED & PEDS [address] [place], [place] [phone] Shereen Latham MD 230 [place] [address] Pain Social History Tobacco Use Types Packs/Day [...] Description 01/24/2025 1:00 PM EDT Clinical Support [facility] DIABETES/NUTRITION 230 [place] [address] [place] [address] 03/29/2025 2:00 PM EDT Office Visit [facility] ADULT DENTAL 230 [place] [address] Jenny Gordon 230 [place] [address] documented as of this encounter Visit Diagnoses Diagnosis Pain Generalized pain documented in this encounter Additional Health Concerns Assessment Noted Time PHQ-9 Depression Total Score: 22 025 10:17 AM EST documented as of this encounter Care Teams Monument Erector Relationship Specialty Start Date End Date Shereen Latham MD 230 [place] [address] PCP - General Family Medicine 11/02/18 Nupur Bullock, CharleneD [address] [place] [address] Pharmacist Internal Medicine 08/09/24 Sury Benitez [address] [place] [address] Dr [facility] 103 [place] [address] Pulmonary Disease 09/27/24 Nirali Madrid OD 267 [place] [address] Optometry 10/27/24 Li Grande MD [address] [place] [address] Hematology and Oncology 10/27/24 Anselmo Gates MD [address] [facility] [address] [place] [address] Orthopaedic Surgery 10/27/24 Margaret Holman [address] [facility] [address] [place] [address] Cardiology 10/27/24 Herberth Stokes MD 11 [facility] 3rd [place] [address] Gastroenterology 10/27/24 Pily Delaney Control Equipment ElectricianInstrumentation Chemist 07/22/24 Elie BRASHER [facility] 12/29/24 documented as of this encounter
--- OUTSIDE RECORDS SUMMARY | 2025-01-19 17:28 | XMS_ITS | Encounter Summary ---
Author Organization [employer] Address 75 [facility] 7t [place] [address] Care Team Providers Care Reactor Kettle Operator Name Role Phone Shereen Latham MD Primary Care Provider Nupur Bullock PharmD Unavailable [phone] Sury Benitez Unavailable [phone] Nirali Madrid OD Unavailable [phone] Li Grande MD Unavailable [phone] Anselmo Gates MD Unavailable Margaret Holman Unavailable Herberth Stokes MD Unavailable [phone] Encounter Details Date Type Department Care [...] Description 01/24/2025 1:00 PM EDT Clinical Support [facility] DIABETES/NUTRITION 230 [place] [address] Ernestina Esteban, RD 230 [place] [address] 03/29/2025 2:00 PM EDT Office Visit [facility] ADULT DENTAL 230 [place] [address] Jenny Gordon 230 [place] [address] documented as of this encounter Visit Diagnoses Not on filedocumented in this encounter Additional Health Concerns Assessment Noted Time PHQ-9 Depression Total Score: 22 025 10:17 AM EST documented as of this encounter Care Teams Reactor Kettle Operator Relationship Specialty Start Date End Date Shereen Latham MD 230 [place] [address] PCP - General Family Medicine 11/02/18 Nupur Bullock, CharleneD 230 [place] [address] Pharmacist Internal Medicine 08/09/24 Sury Benitez [address] [place] [address] Dr [facility] 103 [place] [address] Pulmonary Disease 09/27/24 Nirali Madrid OD [address] [place] [address] Optometry 10/27/24 Li Grande MD [address] [place] [address] Hematology and Oncology 10/27/24 Anselmo Gates MD [address] [place] [address] 203 [place] [address] Orthopaedic Surgery 10/27/24 Margaret Holman [address] [place] [address] 3rd [place] [address] Cardiology 10/27/24 Herberth Stokes MD [address] [place] [address] 3rd [place] [address] Gastroenterology 10/27/24 Pily Delaney Software Development CoordinatorLivestock Broker 07/22/24 Elie Vicky [facility] 12/29/24 documented as of this encounter
--- OUTSIDE RECORDS SUMMARY | 2025-01-19 17:28 | XMS_ITS | Encounter Summary ---
Author Organization [employer] Address 75 [facility] 7t [place] [address] Care Team Providers Care Manager System Name Role Phone Shereen Latham MD Primary Care Provider [phone] Nupur Bullock PharmD Unavailable Sury Benitez Unavailable [phone] Nirali Madrid OD Unavailable Li Grande MD Unavailable [phone] Anselmo Gates MD Unavailable Margaret Holman Unavailable Herberth Stokes MD Unavailable [phone] Reason for Visit * Reason Comments Med Refill Encounter Details Date Type Department Care Team (Late st Contact Info) Description 01/09/2025 Refill [facility] MEDICINE 230 [place], [place] [phone] Shereen Latham MD 230 [place], [place] [phone] Gastroesophageal reflux disease, unspecified whether esophagitis present; Vitamin D deficiency; Nasal congestion Social History Tobacco Use Types Packs/Day Years [...] Description 01/24/2025 1:00 PM EDT Clinical Support [facility] DIABETES/NUTRITION 230 [place] [address] [place] [address] 03/29/2025 2:00 PM EDT Office Visit [facility] ADULT DENTAL 230 [place] [address] Jenny Gordon 230 [place] [address] documented as of this encounter Visit Diagnoses Diagnosis Gastroesophageal reflux disease, unspecified whether esophagitis present Vitamin D deficiency Nasal congestion Other diseases of nasal cavity and sinuses documented in this encounter Additional Health Concerns Assessment Noted Time PHQ-9 Depression Total Score: 22 025 10:17 AM EST documented as of this encounter Care Teams Manager System Relationship Specialty Start Date End Date Shereen Latham MD 230 [place] [address] PCP - General Family Medicine 11/02/18 Nupur Bullock PharmD 230 [place] [address] Pharmacist Internal Medicine 08/09/24 Sury Benitez [address] [place] [address] Dr [facility] 103 [place] [address] Pulmonary Disease 09/27/24 Nirali Madrid OD 267 [place] [address] Optometry 10/27/24 Li Grande MD [address] [place] [address] Hematology and Oncology 10/27/24 Anselmo Gates MD [address] [place] [address] Orthopaedic Surgery 10/27/24 Margaret Holman [address] [place] [address] Cardiology 10/27/24 Herberth Stokes MD [address] [place] [address] Gastroenterology 10/27/24 Pily Delaney Lumber BuyerProduct Owner 07/22/24 Elie Vicky [facility] Psychology 12/29/24 documented as of this encounter
--- OUTSIDE RECORDS SUMMARY | 2025-01-19 17:28 | XMS_ITS | Encounter Summary ---
Author Organization [employer] Address 75 [facility] 7t [place] [address] Care Team Providers Care Elementary Principal Name Role Phone Shereen Latham MD Primary Care Provider Nupur Bullock PharmD Unavailable Sury Benitez Unavailable [phone] Nirali Madrid OD Unavailable Li Grande MD Unavailable [phone] Anselmo Gates MD Unavailable Margaret Holman Unavailable Herberth Stokes MD Unavailable [phone] Encounter Details Date Type Department Care [...] Description 01/24/2025 1:00 PM EDT Clinical Support [facility] DIABETES/NUTRITION 230 [place] [address] Ernestina Esteban, KATE 230 [place] [address] 03/29/2025 2:00 PM EDT Office Visit [facility] ADULT DENTAL 230 [place] [address] Jenny Gordon 230 [place] [address] documented as of this encounter Visit Diagnoses Not on filedocumented in this encounter Additional Health Concerns Assessment Noted Time PHQ-9 Depression Total Score: 13 024 4:53 PM EDT documented as of this encounter Care Teams Elementary Principal Relationship Specialty Start Date End Date Shereen Latham MD 230 [place] [address] PCP - General Family Medicine 11/02/18 Nupur Bullock, Pushpa 230 [place] [address] Pharmacist Internal Medicine 08/09/24 Sury Benitez [address] [place] [address] Dr [facility] 103 [place] [address] Pulmonary Disease 09/27/24 Nirali Madrid OD [address] [place] [address] Optometry 10/27/24 Li Grande MD [address] [place] [address] Hematology and Oncology 10/27/24 Anselmo Gates MD [address] [facility] [address] [facility] [address] [place] [address] Orthopaedic Surgery 10/27/24 Margaret Holman 11 [facility] 3rd [place] [address] Cardiology 10/27/24 Herberth Stokes MD 11 [facility] 3rd [place] [address] Gastroenterology 10/27/24 Pily Delaney Corporate Logistics ManagerMascara Molder 07/22/24 documented as of this encounter
--- OUTSIDE RECORDS SUMMARY | 2025-01-19 17:28 | XMS_ITS | Encounter Summary ---
Author Organization [employer] Address 75 [facility] 7t [place] [address] Care Team Providers Care Regional Loss Prevention Manager Name Role Phone Shereen Latham MD Primary Care Provider [phone] Nupur Bullock PharmD Unavailable Sury Benitez Unavailable [phone] JuliusNirali castellanos OD Unavailable Li Grande MD Unavailable [phone] Anselmo Gates MD Unavailable Margaret Holman Unavailable Herberth Stokes MD Unavailable [phone] Encounter Details Date Type Department Care Team (Latest Contact Info) Description 08/16/2021 Abstract [facility] CONVERSIONS Dental, Provider, DDS Social [...] Description 01/24/2025 1:00 PM EDT Clinical Support [facility] DIABETES/NUTRITION 230 [place] [address] Ernestina Esteban, RD 230 [place] [address] 03/29/2025 2:00 PM EDT Office Visit [facility] ADULT DENTAL 230 [place] [address] Jenny Gordon 230 [place] [address] documented as of this encounter Visit Diagnoses Not on filedocumented in this encounter Care Teams Regional Loss Prevention Manager Relationship Specialty Start Date End Date Shereen Latham MD 230 [place] [address] PCP - General Family Medicine 11/02/18 Nupur Bullock, CharleneD 230 [place] [address] Pharmacist Internal Medicine 08/09/24 Sury Benitez [address] [place] [address] Dr [facility] 103 [place] [address] Pulmonary Disease 09/27/24 Nirali Madrid OD 267 [place] [address] Optometry 10/27/24 Li Grande MD [address] [place] [address] Hematology and Oncology 10/27/24 Anselmo Gates MD [address] [place] [address] Orthopaedic Surgery 10/27/24 Margaret Holman 11 [facility] 3rd [place] [address] Cardiology 10/27/24 Herberth Stokes MD 11 [facility] 3rd [place] [address] Gastroenterology 10/27/24 Pily Delaney Auditor Medical ClaimsFloor Person 07/22/24 Elie BRASHER [facility] Psychology 12/29/24 documented as of this encounter
--- OUTSIDE RECORDS SUMMARY | 2025-01-19 17:28 | XMS_ITS | Encounter Summary ---
Author Organization [employer] Address 75 [facility] 7t [place] [address] Care Team Providers Care Inspector Fuel Hose Name Role Phone Shereen Latham MD Primary Care Provider [phone] Nupur Bullock PharmD Unavailable Sury Benitez Unavailable [phone] Nirali Madrid OD Unavailable [phone] Li Grande MD Unavailable [phone] Anselmo Gates MD Unavailable Margaret Holman Unavailable Herberth Stokes MD Unavailable [phone] Reason for Visit * Reason Onset Date Comments Nurse Triage 12/22/2024 Encounter Details Date Type Department Care Team (Late st Contact Info) Description 12/22/2024 Telephone [facility] MEDICINE 230 [place], [place] [phone] Shereen Latham MD 230 [place], [place] [phone] Nurse Triage Social History Tobacco Use Types [...] encounter Miscellaneous Notes * Telephone Encounter - Maria Fernanda Torres RN - 12/29/2024 2:19 PM EST Called pt. Per Dr. Latham note and notified her that her Uric acid lab was slightly elevated and that PCP wants her to take her Allopurinol 100 mg pills TWICE daily to prevent future gout attacks. Pt. States understanding and states Hopefully that will help . * Telephone Encounter - Daya MarcVERA del valle - 12/22/2024 8:57 AM EST Triage call returned to patient in regards to right foot pain. Patient without injury. History of Gout and seen in [facility] 12/20/24 for flare of gout in [...] PCP is not on until Thursday in [facility] per current schedule. Disposition reviewed [...] caller accepted this outcome. Contact pt at [phone] documented in this encounter Plan of Treatment Upcoming Encounters Date Type Department Care Team (Late st Contact Info) Description 01/24/2025 1:00 PM EDT Clinical Support [facility] DIABETES/NUTRITION [address] [place] [address] [place] [address] 03/29/2025 2:00 PM EDT Office Visit [facility] ADULT DENTAL [address] [place] [address] Heidi, Jenny [address] [place] [address] documented as of this encounter Visit Diagnoses Not on filedocumented in this encounter Additional Health Concerns Assessment Noted Time PHQ-9 Depression Total Score: 13 024 4:53 PM EDT documented as of this encounter Care Teams Inspector Fuel Hose Relationship Specialty Start Date End Date Shereen Latham MD 230 [place] [address] PCP - General Family Medicine 11/02/18 Nupur Bullock, CharleneD 230 [place] [address] Pharmacist Internal Medicine 08/09/24 Sury Benitez [address] [place] [address] [facility] 103 [place] [address] Pulmonary Disease 09/27/24 Nirali Madrid OD [address] [place] [address] Optometry 10/27/24 Li Grande MD [address] [place] [address] Hematology and Oncology 10/27/24 Anselmo Gates MD [address] [place] [address] Orthopaedic Surgery 10/27/24 Margaret Holman 11 [facility] 3rd [place] [address] Cardiology 10/27/24 Herberth Stokes MD 11 [facility] [address]rd [place] [address] Gastroenterology 10/27/24 Pily Delaney Light IndustrialChannel Layer 07/22/24 Elie Vicky [facility] 12/29/24 documented as of this encounter
--- OUTSIDE RECORDS SUMMARY | 2025-01-19 17:28 | XMS_ITS | Encounter Summary ---
Author Organization [employer] Address 75 [facility] 7t [place] [address] Care Team Providers Care Duplicating Machine Mechanic Name Role Phone Shereen Latham MD Primary Care Provider Nupur Bullock PharmD Unavailable [phone] Sury Benitez Unavailable [phone] JuliusNirali castellanos OD Unavailable [phone] Li Grande MD Unavailable [phone] Anselmo Gates MD Unavailable Margaret Holman Unavailable Herberth Stokes MD Unavailable [phone] Encounter Details Date Type Department Care Team (Late st Contact Info) Description 12/29/2024 Orders Only GENERIC EXTERNAL DATA DEPARTMENT [...] 1:00 PM EDT Clinical Support [facility] DIABETES/NUTRITION [address] [place] [address] [place] [address] 03/29/2025 2:00 PM EDT Office Visit [facility] ADULT DENTAL [address] [place] [address] Jenny Gordon [address] [place] [address] documented as of this encounter Procedures Procedure Name Priority Date/Time Associated Diagnosis Comments CBC WITH AUTO DIFFERENTIAL Routine 12/29/2024 10:53 AM EST documented in this encounter Results * (ABNORMAL) CBC auto differential (12/29/2024 10:53 AM EST) White Blood Count 13.5(H) 4.8 - 10.8 X10*3/uL [facility] Red Blood Count 3.97(L) 4.20 - 5.50 X10*6/uL [facility] Hemoglobin 11.4(L) 12.0 - 16.0 g/dl [facility] Hematocrit 36.4(L) 37.0 - 47.0 % [facility] Mean Corpuscular Volume 91.7 80.0 - 98.0 fL [facility] Mean Corpuscular Hemoglobin 28.7 27.0 - 33.0 pg [facility] Mean Corpuscular HGB Conc 31.3 31.0 - 35.0 g/dl [facility] Red Cell Distribution Width 14.8 11.0 - 16.0 % [facility] Platelet Count 370 160 - 400 X10*3/uL [facility] Mean Platelet Volume 10.2 9.4 - 12.3 fL [facility] Neutrophils Percent Auto 70.1 45 - 73 % [facility] Imm Gran Pct Auto 1.8(H) 0.0 - 0.4 % [facility] Lymphocytes Percent Auto 18.9(L) 20 - 40 % [facility] Monocytes Percent Auto 7.8 2 - 11 % [facility] Eosinophils Percent Auto 0.7 0 - 4 % [facility] Basophils Percent Auto 0.7 0 - 2 % [facility] NRBC Pct Auto 0.0 0.0 - 0.2 /100WBC [facility] Neutrophils Absolute Auto 9.5(H) 2.0 - 8.3 x10*3/uL [facility] Imm Gran Abs Auto 0.25(H) 0.00 - 0.03 X10*3/uL [facility] Lymphocytes Absolute Auto 2.6 1.2 - 4.9 X10*3/uL [facility] Monocytes Absolute Auto 1.1 0.1 - 1.2 X10*3/uL [facility] Eosinophils Absolute Auto 0.1 0.0 - 0.4 X10*3/uL [facility] Basophils Absolute Auto 0.1 0.0 - 0.2 X10*3/uL [facility] NRBC Abs Auto 0.000 0.0 - 0.012 X10*3/uL [facility] 12/29/2024 10:5 3 AM EST 12/29/2024 1:06 PM EST us Generic External Data Provider LAB BLOOD ORDERAB LES Final Result Performing Organization Address City/State/[facility] Co de Phone Number [facility] [address] [place] [address] [phone] documented in this encounter Visit Diagnoses Not on filedocumented in this encounter Additional Health Concerns Assessment Noted Time PHQ-9 Depression Total Score: 22 025 10:17 AM EST documented as of this encounter Care Teams Duplicating Machine Mechanic Relationship Specialty Start Date End Date Shereen Latham MD 230 [place] [address] PCP - General Family Medicine 11/02/18 Nupur Bullock PharmD [address] [place] [address] Pharmacist Internal Medicine 08/09/24 Sury Benitez [address] [place] [address] Dr [place] [address] [place] [address] Pulmonary Disease 09/27/24 Nirali Madrid OD [address] [place] [address] Optometry 10/27/24 Li Grande MD [address] [place] [address] Hematology and Oncology 10/27/24 Anselmo Gates MD [address] [place] [address] Orthopaedic Surgery 10/27/24 Margaret Holman [address] 3rd [place] [address] Cardiology 10/27/24 Herberth Stokes MD [address]rd [place] [address] Gastroenterology 10/27/24 Pily Delaney Ornamental IronworkerSlot Service Specialist 07/22/24 Elie Vicky [facility] Psychology 12/29/24 documented as of this encounter
--- OUTSIDE RECORDS SUMMARY | 2025-01-19 17:28 | XMS_ITS | Encounter Summary ---
Author Organization [employer] Address 75 [facility] 7t [place] [address] Care Team Providers Care Chro Name Role Phone Shereen Latham MD Primary Care Provider [phone] Nupur Bullock PharmD Unavailable Sury Benitez Unavailable [phone] Nirali Madrid OD Unavailable [phone] Li Grande MD Unavailable [phone] Anselmo Gates MD Unavailable Margaret Holman Unavailable Herberth Stokes MD Unavailable [phone] Reason for Visit * Reason Onset Date Comments Referral 01/03/2025 Encounter Details Date Type Department Care Team (Late st Contact Info) Description 01/03/2025 Telephone [facility] MEDICINE 230 [place], [place] [phone] Shereen Latham MD 230 [place], [place] [phone] Referral Social History Tobacco Use Types Packs/Day [...] Telephone Encounter - Cira Martinez RN - 01/03/2025 3:49 PM EST TC placed to pt in regards to the request for a new podiatry referral. Pt did confirm that she had an appt with Dr. Thee Junior at [address] [place] [address] in 2023. The pt states that she is dissatisfied with the care as she never received a call back regarding test results and a corresponding f/u appt. Pt advised that there are very few podiatry providers in the area and that she should call back Dr. Junior's office to inquire about the testing results. RN further explained that the results shouldstill be available even if they were done months ago. Pt stated understanding of this plan and willcall back as needed. * Telephone Encounter - Kalpesh Adalid - 01/03/2025 11:25 AM EST Tc from pt calling in regards to podiatry referral stating she feels they did not do anything for her. Pt would like a call back to further discuss new plan moving forward. Please contact pt at [phone]. documented in this encounter Plan of Treatment Upcoming Encounters Date Type Department Care Team (Late st Contact Info) Description 01/24/2025 1:00 PM EDT Clinical Support [facility] DIABETES/NUTRITION 230 [place] [address] Ernestina Esteban, KATE 230 [place] [address] 03/29/2025 2:00 PM EDT Office Visit [facility] ADULT DENTAL 230 [place] [address] Heidi, Jenny 230 [place] [address] documented as of this encounter Visit Diagnoses Not on filedocumented in this encounter Additional Health Concerns Assessment Noted Time PHQ-9 Depression Total Score: 22 025 10:17 AM EST documented as of this encounter Care Teams Chro Relationship Specialty Start Date End Date Shereen Latham MD [address] [place] [address] PCP - General Family Medicine 11/02/18 Nupur Bullock, Pushpa [address] [place] [address] Pharmacist Internal Medicine 08/09/24 Sury Benitez [address] [place] [address] Dr [facility] 103 [place] [address] Pulmonary Disease 09/27/24 Lester MadridnSUSAN [address] [place] [address] Optometry 10/27/24 Li Grande MD [address] [place] [address] Hematology and Oncology 10/27/24 Anselmo Gates MD 10 [facility] [address] [place] [address] Orthopaedic Surgery 10/27/24 Margaret Holman 11 [facility] 3rd [place] [address] Cardiology 10/27/24 Herberth Stokes MD 11 [facility] 3rd [place] [address] Gastroenterology 10/27/24 Pily Delaney Senior Electrical DesignerBrand Designer 07/22/24 Elie BRASHER [facility] 12/29/24 documented as of this encounter
--- OUTSIDE RECORDS SUMMARY | 2025-01-19 17:28 | XMS_ITS | Encounter Summary ---
Author Organization [employer] Address 75 [facility] 7t [place] [address] Care Team Providers Care Sixth Grade Teacher Name Role Phone Shereen Latham MD Primary Care Provider [phone] Nupur Bullock PharmD Unavailable Sury Benitez Unavailable [phone] Nirali Madrid OD Unavailable [phone] Li Grande MD Unavailable [phone] Anselmo Gates MD Unavailable Margaret Holman Unavailable Herberth Stokes MD Unavailable [phone] Encounter Details Date Type Department Care Team (Late st Contact Info) Description 07/27/2023 Orders Only [facility] MEDICINE 230 [place], [place] [phone] Shereen Latham MD 230 [place], [place] [phone] Hypomagnesemia Social History Tobacco Use Types Packs/Day [...] Description 01/24/2025 1:00 PM EDT Clinical Support [facility] DIABETES/NUTRITION 230 [place] [address] Ernestina Esteban, RD 230 [place] [address] 03/29/2025 2:00 PM EDT Office Visit [facility] ADULT DENTAL 230 [place] [address] Heidi Jenny 230 [place] [address] documented as of this encounter Visit Diagnoses Diagnosis Hypomagnesemia Disorders of magnesium metabolism documented in this encounter Additional Health Concerns Assessment Noted Time PHQ-9 Depression Total Score: 10 023 10:27 AM EDT documented as of this encounter Care Teams Sixth Grade Teacher Relationship Specialty Start Date End Date Shereen Latham MD 230 [place] [address] PCP - General Family Medicine 11/02/18 Nupur Bullock PharmD 230 [place] [address] Pharmacist Internal Medicine 08/09/24 Sury Benitez [address] [place] [address] [place] [address] Pulmonary Disease 09/27/24 Nirali Madrid OD [address] [place] [address] Optometry 10/27/24 Li Grande MD [address] [place] [address] Hematology and Oncology 10/27/24 Anselmo Gates MD [address] [place] [address] Orthopaedic Surgery 10/27/24 Margaret Holman [address] 3rd [place] [address] Cardiology 10/27/24 Herberth Stokes MD [address]rd [place] [address] Gastroenterology 10/27/24 Pily Delaney Machine Rug CleanerPlow And Boring Machine Tender 07/22/24 Elie BRASHER [facility] Psychology 12/29/24 documented as of this encounter
--- OUTSIDE RECORDS SUMMARY | 2025-01-19 17:28 | XMS_ITS | Encounter Summary ---
Author Organization [employer] Address 75 [facility] 7t [place] [address] Care Team Providers Care Straight Cutter Machine Name Role Phone Shereen Latham MD Primary Care Provider [phone] Nupur Bullock PharmD Unavailable Sury Benitez Unavailable [phone] Nirali Madrid OD Unavailable Li Grande MD Unavailable [phone] Anselmo Gates MD Unavailable Margaret Holman Unavailable Herberth Stokes MD Unavailable [phone] Reason for Visit * Reason Onset Date Comments Nurse Triage 01/25/2024 Referral 01/25/2024 Encounter Details Date Type Department Care Team (Late st Contact Info) Description 01/25/2024 Telephone [facility] MEDICINE 230 [place], [place] [phone] Shereen Latham MD 230 [place], [place] [phone] Nurse Triage; Referral Social History Tobacco Use [...] vary. Pt wants to be referred to [facility] [address] [facility] [address] [place] [address]. Adivsed will send to team to review [...] 1:00 PM EDT Clinical Support [facility] DIABETES/NUTRITION 230 [place] [address] Ernestina Esteban, KATE 230 [place] [address] 03/29/2025 2:00 PM EDT Office Visit [facility] ADULT DENTAL 230 [place] [address] Heidi, Jenny 230 [place] [address] documented as of this encounter Visit Diagnoses Not on filedocumented in this encounter Additional Health Concerns Assessment Noted Time PHQ-9 Depression Total Score: 21 023 10:42 AM EST documented as of this encounter Care Teams Straight Cutter Machine Relationship Specialty Start Date End Date Shereen Latham MD 230 [place] [address] PCP - General Family Medicine 11/02/18 Nupur Bullock, CharleneD 230 [place] [address] Pharmacist Internal Medicine 08/09/24 Dyloncharlene Sury [address] [facility] [address] [facility] 103 [place] [address] Pulmonary Disease 09/27/24 Nirali Madrid OD 267 [place] [address] Optometry 10/27/24 Li Grande MD [address] [place] [address] Hematology and Oncology 10/27/24 Anselmo Gates MD [address] [facility] [address] [place] [address] Orthopaedic Surgery 10/27/24 Margaret Holman 11 [facility] 3rd [place] [address] Cardiology 10/27/24 Herberth Stokes MD 11 [facility] 3rd [place] [address] Gastroenterology 10/27/24 Pily Delaney Cook SeafoodTrain Brakeman 07/22/24 Elie Vicky [facility] Psychology 12/29/24 documented as of this encounter
--- OUTSIDE RECORDS SUMMARY | 2025-01-19 17:28 | XMS_ITS | Encounter Summary ---
Author Organization [employer] Address 75 [facility] 7t [place] [address] Care Team Providers Care Negative Assembler Name Role Phone Shereen Latham MD Primary Care Provider [phone] Nupur Bullock PharmD Unavailable Sury Benitez Unavailable [phone] Nirali Madrid OD Unavailable Li Grande MD Unavailable [phone] Anselmo Gates MD Unavailable Margaret Holman Unavailable Herberth Stokes MD Unavailable [phone] Reason for Visit * Reason Onset Date Comments Durable Medical Equipment 12/22/2024 chartprep 12/22/2024 Encounter Details Date Type Department Care Team (Late st Contact Info) Description 12/22/2024 Telephone [facility] MEDICINE 230 [place], [place] [phone] Shereen Latham MD 230 [place], [place] [phone] Durable Medical Equipment; chartprep Social History Tobacco [...] Description 01/24/2025 1:00 PM EDT Clinical Support [facility] DIABETES/NUTRITION 230 [place] [address] Ernestina Esteban, RD 230 [place] [address] 03/29/2025 2:00 PM EDT Office Visit [facility] ADULT DENTAL [address] [place] [address] Heidi, Jenny 230 [place] [address] documented as of this encounter Visit Diagnoses Not on filedocumented in this encounter Additional Health Concerns Assessment Noted Time PHQ-9 Depression Total Score: 13 024 4:53 PM EDT documented as of this encounter Care Teams Negative Assembler Relationship Specialty Start Date End Date Shereen Latham MD 230 [place] [address] PCP - General Family Medicine 11/02/18 Nupur Bullock, Pushpa 230 [place] [address] Pharmacist Internal Medicine 08/09/24 EmmanuelSury [address] [facility] [address] [facility] 103 [place] [address] Pulmonary Disease 09/27/24 Nirali Madrid OD 267 [place] [address] Optometry 10/27/24 Li Grande MD [address] [place] [address] Hematology and Oncology 10/27/24 Anselmo Gates MD [address] [facility] [address] [place] [address] Orthopaedic Surgery 10/27/24 Margaret Holman 11 [facility] 3rd [place] [address] Cardiology 10/27/24 Herberth Stokes MD 11 [facility] 3rd [place] [address] Gastroenterology 10/27/24 Pily Delaney [employer] Solutions Workflow ConsultantBuckle And Button Maker 07/22/24 documented as of this encounter
--- OUTSIDE RECORDS SUMMARY | 2025-01-19 17:28 | XMS_ITS | Encounter Summary ---
Author Organization [employer] Address 75 [facility] 7t [place] [address] Care Team Providers Care Carbon Accountant Name Role Phone Shereen Latham MD Primary Care Provider [phone] Nupur Bullock PharmD Unavailable Sury Benitez Unavailable [phone] Nirali Madrid OD Unavailable Li Grande MD Unavailable [phone] Anselmo Gates MD Unavailable Margaret Holman Unavailable Herberth Stokes MD Unavailable [phone] Reason for Visit * Reason Comments Med Refill Encounter Details Date Type Department Care Team (Late st Contact Info) Description 12/02/2022 Refill [facility] MEDICINE 230 [place], [place] [phone] Shereen Latham MD 230 [place], [place] [phone] Wheeze (Primary Dx); Pain Social History Tobacco [...] 01/24/2025 1:00 PM EDT Clinical Support [facility] DIABETES/NUTRITION 230 [place] [address] Ernestina Esteban, RD 230 [place] [address] 03/29/2025 2:00 PM EDT Office Visit [facility] ADULT DENTAL 230 [place] [address] Heidi Jenny 230 [place] [address] documented as of this encounter Visit Diagnoses Diagnosis Wheeze- Primary Wheezing Pain Generalized pain documented in this encounter Care Teams Carbon Accountant Relationship Specialty Start Date End Date Shereen Latham MD 230 [place] [address] PCP - General Family Medicine 11/02/18 Nupur Blulock PharmD 230 [place] [address] Pharmacist Internal Medicine 08/09/24 Sury Benitez [address] [place] [address] [address] Pulmonary Disease 09/27/24 Nirali Madrid OD [address] [place] [address] Optometry 10/27/24 Li Grande MD 575 [place] [address] Hematology and Oncology 10/27/24 Anselmo Gates MD 10 [facility] [address] [place] [address] Orthopaedic Surgery 10/27/24 Margaret Holman 11 [facility] 3rd [place] [address] Cardiology 10/27/24 Herberth Stokes MD [address] [place] [address] [place] [address] Gastroenterology 10/27/24 Pily Delaney Outdoor GuideQuotation Checker 07/22/24 Elie BRASHER [facility] Psychology 12/29/24 documented as of this encounter
--- OUTSIDE RECORDS SUMMARY | 2025-01-19 17:28 | XMS_ITS | Encounter Summary ---
Author Organization [employer] Address 75 [facility] 7t [place] [address] Care Team Providers Care Motocross Racer Name Role Phone Shereen Latham MD Primary Care Provider [phone] Nupur Bullock PharmD Unavailable [phone] Sury Benitez Unavailable [phone] Nirali Madrid OD Unavailable Li Grande MD Unavailable [phone] Anselmo Gates MD Unavailable Margaret Holman Unavailable Herberth Stokes MD Unavailable [phone] Encounter Details Date Type Department Care Team (Late st Contact Info) Description 12/21/2024 3:30 PM EST Telemedicine [facility] MEDICINE 230 [place] [address] Nupur Bullock, PharmD 230 [place] [address] Preventative health care (Primary Dx) Social History [...] trimethoprim, hydrocodone, and latex. Read/Write: Yes, in Yi Recent Hospitalizations: Yes 11/21/24, 12/20/24 for gout flare Social History as reported by patient: Tobacco: Current 4-5 cigs/day (denies interest in tobacco cessation at this time) Alcohol: holidays (reports last drink one week ago) Caffeine: Denies Illicit drugs: Past 4 years ago Diet: Reports non-compliance with diet Exercise: irregularly Adherence / patient self-management Uses medboxes from [facility] pharmacy Reports satisfaction with medboxes Denies missed [...] Will revisit at follow up Preferred Pharmacy: [facility] - [address] [address] Assessment/Plan: Hypertension Pharmacotherapy: Furosemide 40mg once daily [...] Description 01/24/2025 1:00 PM EDT Clinical Support [facility] DIABETES/NUTRITION 230 [place] [address] Ernestina Esteban, RD 230 [place] [address] 03/29/2025 2:00 PM EDT Office Visit [facility] ADULT DENTAL 230 [place] [address] Heidi, Jenny 230 [place] [address] documented as of this encounter Visit Diagnoses Diagnosis Preventative health care- Primary Routine general medical examination at a health care facility documented in this encounter Additional Health Concerns Assessment Noted Time PHQ-9 Depression Total Score: 13 024 4:53 PM EDT documented as of this encounter Care Teams Motocross Racer Relationship Specialty Start Date End Date Shereen Latham MD 230 [place] [address] PCP - General Family Medicine 11/02/18 Nupur Bullock PharmD [address] [place] [address] Pharmacist Internal Medicine 08/09/24 Sury Benitez [address] [place] [address] Dr [place] [address] [place] [address] Pulmonary Disease 09/27/24 Nirali MadridSUSAN [address] [place] [address] Optometry 10/27/24 Li Grande MD 575 [place] [address] Hematology and Oncology 10/27/24 Anselmo Gates MD [address] [place] [address] Orthopaedic Surgery 10/27/24 Margaret Holman [address] 3rd [place] [address] Cardiology 10/27/24 Herberth Stokes MD [address] 3rd [place] [address] Gastroenterology 10/27/24 Pily Delaney Kettle ChipperManager Primary Care 07/22/24 documented as of this encounter
--- OUTSIDE RECORDS SUMMARY | 2025-01-19 17:28 | XMS_ITS | Encounter Summary ---
Author Organization [employer] Address 75 [facility] 7t [place] [address] Care Team Providers Care Assembler Mechanical Ordnance Name Role Phone Shereen Latham MD Primary Care Provider [phone] Nupur Bullock PharmD Unavailable Sury Benitez Unavailable [phone] Nirali Madrid OD Unavailable [phone] Li Grande MD Unavailable [phone] Anselmo Gates MD Unavailable Margaret Holman Unavailable Herberth Stokes MD Unavailable [phone] Encounter Details Date Type Department Care Team (Late st Contact Info) Description 10/11/2024 Telephone [facility] MEDICINE 230 [place], [place] [phone] Shereen Latham MD 230 [place], [place] [phone] Social History Tobacco Use Types Packs/Day Years [...] Description 01/24/2025 1:00 PM EDT Clinical Support [facility] DIABETES/NUTRITION 230 [place] [address] [place] [address] 03/29/2025 2:00 PM EDT Office Visit [facility] ADULT DENTAL 230 [place] [address] Jenny Gordon 230 [place] [address] documented as of this encounter Visit Diagnoses Not on filedocumented in this encounter Additional Health Concerns Assessment Noted Time PHQ-9 Depression Total Score: 13 024 4:53 PM EDT documented as of this encounter Care Teams Assembler Mechanical Ordnance Relationship Specialty Start Date End Date Shereen Latham MD 230 [place] [address] PCP - General Family Medicine 11/02/18 Nupur Bullock, CharleneD 230 [place] [address] Pharmacist Internal Medicine 08/09/24 Sury Benitez [address] [place] [address] [address] Pulmonary Disease 09/27/24 Nirali Madrid OD [address] [place] [address] Optometry 10/27/24 Li Grande MD [address] [place] [address] Hematology and Oncology 10/27/24 Anselmo Gates MD [address] [facility] [address] [facility] 203 [place] [address] Orthopaedic Surgery 10/27/24 Margaret Holman 11 [facility] 3rd [place] [address] Cardiology 10/27/24 Herberth Stokes MD 11 [facility] 3rd [place] [address] Gastroenterology 10/27/24 Pily Delaney Family Development SpecialistUx Lead 07/22/24 Elie Vicky [facility] 12/29/24 documented as of this encounter
--- OUTSIDE RECORDS SUMMARY | 2025-01-19 17:28 | XMS_ITS | Encounter Summary ---
Author Organization [employer] Address 75 [facility] 7t [place] [address] Care Team Providers Care Poured Concrete Wall Technician Name Role Phone Shereen Latham MD Primary Care Provider [phone]- [phone] Nupur Bullock PharmD Unavailable Sury Benitez Unavailable [phone] Nirali Madrid OD Unavailable Li Grande MD Unavailable [phone] Anselmo Gates MD Unavailable Margaret Holman Unavailable Herberth Stokes MD Unavailable [phone] Reason for Visit * Reason Onset Date Comments Results 12/29/2024 Encounter Details Date Type Department Care Team (Late st Contact Info) Description 12/29/2024 Telephone [facility] MEDICINE [address] [place] [address] Shereen Latham MD [address] [place] [address] Results Social History Tobacco Use Types Packs/Day [...] Telephone Encounter - Cira Martinez RN - 12/30/2024 9:40 AM EST TC placed to pt to inform that labs done yesterday (12/29) were reviewed by Dr. Fernandez and the only measure that was slightly elevated was the pt uric acid. Pt was already informed of the allopurinol medication that was increased to 100 mg twice daily. Pt also advised that the lipid panel showed stable levels of both triglycerides. LDL and cholesterol. Pt agreeable to all this information and had further questions or concerns. * Telephone Encounter - Layton Jeff - 12/29/2024 4:21 PM EST Tc from pt requesting a callback in regards results as pt was in My Chart and states her cholesterol is no good and PCP didn't mention as pt is doubtful. documented in this encounter Plan of Treatment Upcoming Encounters Date Type Department Care Team (Late st Contact Info) Description 01/24/2025 1:00 PM EDT Clinical Support [facility] DIABETES/NUTRITION [address] [place] [address] [place] [address] 03/29/2025 2:00 PM EDT Office Visit [facility] ADULT DENTAL [address] [place] [address] Heidi, Jenny [address] [place] [address] documented as of this encounter Visit Diagnoses Not on filedocumented in this encounter Additional Health Concerns Assessment Noted Time PHQ-9 Depression Total Score: 22 025 10:17 AM EST documented as of this encounter Care Teams Poured Concrete Wall Technician Relationship Specialty Start Date End Date Shereen Latham MD [address] [place] [address] PCP - General Family Medicine 11/02/18 Nupur Bullock PharmD [address] [place] [address] Pharmacist Internal Medicine 08/09/24 Sury Benitez [address] [place] [address] [place] [address] [place] [address] Pulmonary Disease 09/27/24 Nirali Madrid OD [address] [place] [address] Optometry 10/27/24 Li Grande MD [address] [place] [address] Hematology and Oncology 10/27/24 Anselmo Gates MD [address] [place] [address] Orthopaedic Surgery 10/27/24 Margaret Holman [address] 3rd [place] [address] Cardiology 10/27/24 Herberth Stokes MD [address] 3rd [place] [address] Gastroenterology 10/27/24 Pily Delaney Clinical Operations ConsultantRelief Master 07/22/24 Elie Vicky [facility] Psychology 12/29/24 documented as of this encounter
--- OUTSIDE RECORDS SUMMARY | 2025-01-19 17:28 | XMS_ITS | Encounter Summary ---
Author Organization [employer] Address 75 [facility] 7t [place] [address] Care Team Providers Care Stock Manager Name Role Phone Shereen Latham MD Primary Care Provider [phone] Nupur Bullock PharmD Unavailable Sury Benitez Unavailable [phone] Nirali Madrid OD Unavailable Li Grande MD Unavailable [phone] Anselmo Gates MD Unavailable Margaret Holman Unavailable Herberth Stokes MD Unavailable [phone] Reason for Visit * Reason Onset Date Comments ER Follow-up 12/07/2024 Encounter Details Date Type Department Care Team (Late st Contact Info) Description 12/07/2024 Telephone [facility] MEDICINE [address] [place], [place] [phone] Shereen Latham MD [address] [place], [place] [phone] ER Follow-up Social History Tobacco Use Types [...] TC placed to pt to f/u on [facility] ED visit on 12/06/2024 for right lower [...] ED visit on : Date: 12/06/24 Hospital: [facility] Seen for: Flu Patient advised will forward to team nurse for follow up documented in this encounter Plan of Treatment Upcoming Encounters Date Type Department Care Team (Late st Contact Info) Description 01/24/2025 1:00 PM EDT Clinical Support [facility] DIABETES/NUTRITION [address] [place] [address] Ernestina Esteban, KATE [address] [place] [address] 03/29/2025 2:00 PM EDT Office Visit [facility] ADULT DENTAL [address] [place] [address] Heidi, Jenny [address] [place] [address] documented as of this encounter Visit Diagnoses Not on filedocumented in this encounter Additional Health Concerns Assessment Noted Time PHQ-9 Depression Total Score: 13 024 4:53 PM EDT documented as of this encounter Care Teams Stock Manager Relationship Specialty Start Date End Date Shereen Latham MD [address] [place] [address] PCP - General Family Medicine 11/02/18 Nupur Bullock, CharleneD [address] [place] [address] Pharmacist Internal Medicine 08/09/24 Sury Benitez [address] [place] [address] Pulmonary Disease 09/27/24 Nirali Madrid OD [address] [place] [address] Optometry 10/27/24 Li Grande MD [address] [place] [address] Hematology and Oncology 10/27/24 Anselmo Gates MD [address] [place] [address] Orthopaedic Surgery 10/27/24 Margaret Holman 11 [facility] 3rd [place] [address] Cardiology 10/27/24 Herberth Stokes MD 11 [facility] 3rd [place] [address] Gastroenterology 10/27/24 Pily Delaney Stone DresserTrain Station Server 07/22/24 Elie Vicky [facility] 12/29/24 documented as of this encounter
--- OUTSIDE RECORDS SUMMARY | 2025-01-19 17:28 | XMS_ITS | Encounter Summary ---
Author Organization [employer] Address 75 [facility] 7t [place] [address] Care Team Providers Care Honing Machine Operator Production Name Role Phone Shereen Latham MD Primary Care Provider [phone] Nupur Bullock PharmD Unavailable [phone] Sury Benitez Unavailable [phone] Nirali Madrid OD Unavailable Li Grande MD Unavailable [phone] Anselmo Gates MD Unavailable Margaret Holman Unavailable Herberth Stokes MD Unavailable [phone] Encounter Details Date Type Department Care Team (Late st Contact Info) Description 12/20/2024 Orders Only [facility] External Provider, [facility] Social History Tobacco Use Types Packs/Day Years [...] 01/24/2025 1:00 PM EDT Clinical Support [facility] DIABETES/NUTRITION [address] [place] [address] Ernestina Esteban, RD [address] [place] [address] 03/29/2025 2:00 PM EDT Office Visit [facility] ADULT DENTAL [address] [place] [address] Jenny Gordon [address] [place] [address] documented as of this encounter Procedures Procedure Name Priority Date/Time Associated Diagnosis Comments XR KNEE 1-2 VIEWS RIGHT Routine 12/20/2024 7:45 AM EST documented in this encounter Results * XR Knee 1-2 Views Right (12/20/2024 7:45 AM EST) Anatomical Region Laterality Modality Lower Extremities, Knee Right Radiogra phic Imaging 12/20/2024 7:45 AM EST Narrative 12/20/2024 8:20 AM EST ? [facility] ?[address] ?[place] [address] ?XRay Report ? Signed ? Patient: Azra Cast ?MR#: [id number] ?? [id number] ? : 1975 ?Acct:[id number] ? Age/Sex: 49 / F ?ADM Date: 12/20/24 ? Loc: HO.ED ? Attending Dr: ? Ordering Physician: Boby Dykes MD ?? Date of Service: 12/20/24 ?? Procedure(s): XR knee RT 2V ?? Accession Number(s): [id number] ? cc: Shereen Latham MD; Boby Dykes [...] DD/ 0745 ? TD/TT: 12/20/24 0751 ? Painting Instructor: ? Procedure Note Donotuseinterpreter, Image - 12/20/[address] [address] XRay Report Signed Patient: Maged Cast#: [id number] : 1975Acct:[id number] Age/Sex: 49 / FADM Date: 12/20/24 Loc: HO.ED Attending Dr: Ordering Physician: Boby Dykes MD Date of Service: 12/20/24 Procedure(s): XR knee RT 2V Accession Number(s): [id number] cc: Shereen Latham MD; Boby Dykes MD [...] 12/20/24 0817 DD/ 0745 TD/TT: 12/20/24 0751 Painting Instructor: [facility] External Provider IMG XR PROCEDURES Edited Result - Final documented in this encounter Visit Diagnoses Not on filedocumented in this encounter Additional Health Concerns Assessment Noted Time PHQ-9 Depression Total Score: 13 08/ 024 4:53 PM EDT documented as of this encounter Care Teams Honing Machine Operator Production Relationship Specialty Start Date End Date Shereen Latham MD [address] [place] [address] PCP - General Family Medicine 11/02/18 Nupur Bullock PharmD [address] [place] [address] Pharmacist Internal Medicine 08/09/24 Sury Benitez [address] [place] [address] Pulmonary Disease 09/27/24 Nirali Madrid OD [address] [place] [address] Optometry 10/27/24 iL Grande MD [address] [place] [address] Hematology and Oncology 10/27/24 Anselmo Gates MD [address] [facility] [address] [place] [address] Orthopaedic Surgery 10/27/24 Margaret Holman 11 [facility] 3rd [place] [address] Cardiology 10/27/24 Herberth Stokes MD 11 [facility] 3rd [place] [address] Gastroenterology 10/27/24 Pily Delaney Post Acute Care Nurse PractitionerDirector Of Student Aid 07/22/24 documented as of this encounter
--- OUTSIDE RECORDS SUMMARY | 2025-01-19 17:28 | XMS_ITS | Clinical Summary ---
Author Organization [employer] [facility] it Address [address] [place] [address] Care Team Providers Care Duty Engineer Name Role Phone Shereen Latham MD Primary Care Provider [phone] Social History Tobacco Use Types Packs/Day Years [...] age to complete this topic Care Teams Duty Engineer Relationship Specialty Start Date End Date Shereen Latham MD [address] [place] [phone] PCP - General 01/13/1996
--- OUTSIDE RECORDS SUMMARY | 2025-01-19 17:28 | XMS_ITS | Encounter Summary ---
Author Organization [employer] Address 75 [facility] 7t [place] [address] Care Team Providers Care Coffee Grinder Name Role Phone Shereen Latham MD Primary Care Provider [phone] Nupur Bullock PharmD Unavailable Sury Benitez Unavailable [phone] Nirali Madrid OD Unavailable [phone] Li Grande MD Unavailable [phone] Anselmo Gates MD Unavailable Margaret Holman Unavailable Herberth Stokes MD Unavailable [phone] Reason for Visit * Reason Comments follow up Mammo Encounter Details Date Type Department Care Team (Late st Contact Info) Description 12/29/2024 10:30 AM EST Office Visit [facility] MEDICINE [address] [place], [place] [phone] Shereen Latham MD [address] [place], [place] [phone] History of right breast cancer (Primary Dx); [...] the past 12 months, has t he [employer], [employer], oil or water [employer] threatened to shut off services in your [...] ER/hospital recurrently over the last year: 12/17/23 [facility] ED with alcohol withdrawal. 01/02/24 [facility] ED with alcohol withdrawal. 04/09/24 [facility] ED with alcohol withdrawal. 04/11/24 [facility] ED with alcohol withdrawal. 04/21/24 [facility] ED or left ankle pain. Dx with gout. Treated with prednisone. 06/24/24 hospitalized for congestive heart failure and hypertensive emergency. 07/06/24 [facility] ED for chest pain. 07/25/2024 - 07/27/2024 [facility] presented with right knee pain. Admitted for gout, treated with steroids and colchicine. 08/07/2024 [facility] ED presented for right knee gout exacerbation. Provided another course of steroids and colchicine. 09/07/24 [facility] ED for chest pain. 10/31/24 [facility] ED for chest pain. Dx with chest wall pain. 11/21/24 [facility] ED for R knee pain. Dx with gout and treated with prednisone. 12/06/24 [facility] ED for abdominal pain. Dx with muscle strain. 12/11/24 [facility] ED for water retention. Dx with dyspnea, did not seem fluid overloaded. 12/20/24 [facility] ED for right knee pain, treated for [...] type, invasive tumor 2.2 cm ER positive, AL positive, HER-2/RON negative, two sentinel nodes negative. -S/p RIGHT mastectomy with sentinel node bx by Dr. Prescott [facility] -Adriamycin/Cytoxan based chemotherapy started Oct, completed [...] flare up. Will call to reschedule her ezcxbadxeis34/08/25 -Has appt for mammogram in December 2024. [...] failure with reduced EF during admission to [facility] 06/22/24. - She was started on [...] effusion and indeterminate diastolic function -Seen by [facility] Cardiology 08/01/24 : exercise nuclear stress [...] 12/29/24. SOB (shortness of breath) -Followed by [facility] Pulmonology with Sury Benitez NP -02/2024 [...] 04/21/24 with uric acid 7.9 -Seen by bridge ironworker Dr. Bernstein 05/11/24 or evaluation of acute gout affecting left foot. -Pt admitted 07/25/24-07/2524 for swelling, pain, and warmth in the right knee. Patient had a low fever (100.3 F) and elevated WBC (79031 cells/uL), CRP, and ESR. Orthopedic surgery consulted [...] reach serum uric acid level <6 mg/dL(2020 [place] [employer] guideline for the management of [...] Risk The 10-year ASCVD risk score (Becka DK, et al., 2019) is: 6.9% Values [...] Encouraged smoking cessation resources such as pharmacomtherapy, [facility] smoking cessation group, and [facility] pharmacy smoking cessation clinic Discussed [...] [facility] but [...] subsequently declined -Admitted for alcohol detox at [facility] 04/09/24 -reports she is currently not drinking 08/24/24. Encouraged to continue abstinence. -Vague about drinking, but seemingly still drinking 12/29/24 Complex care coordination -Has [employer] services with [facility] -She is applying [facility] 01/11/2024 -In our C3 complex care management program -referred to [facility] on 01/04/2024 -Messaged sent to C3 skin care instructor for assistance in care visits Tubular adenoma of colon Other Visit Diagnoses History of chronic CHF Follow up in about 4 months (around 04/28/2025) for mammo, stress test, bridge ironworker, labs. I, Ariela Pa, am serving as [...] failure with reduced EF during admission to [facility] 06/22/24. - She was started on [...] effusion and indeterminate diastolic function -Seen by [facility] Cardiology 08/01/24 : exercise nuclear stress [...] 04/21/24 with uric acid 7.9 -Seen by bridge ironworker Dr. Bernstein 05/11/24 or evaluation of acute gout affecting left foot. -Pt admitted 07/25/24-07/2524 for swelling, pain, and warmth in the right knee. Patient had a low fever (100.3 F) and elevated WBC (14018 cells/uL), CRP, and ESR. Orthopedic surgery consulted [...] reach serum uric acid level <6 mg/dL(2020 [place] [employer] guideline for the management of gout: titrate allopurinol in 100 mg increments every 2 to 4 weeks to achieve the desired serum uric acid level, doses greater than 300 mg/day are oftenneeded to reach desired uric acid target). * Assessment & Plan Note - Ariela Pa - 12/29/2024 10:24 AM ESTAssociated Problem(s): SOB (shortness of breath) -Followed by [facility] Pulmonology with Sury Benitez NP -02/2024 [...] [facility] but has [...] subsequently declined -Admitted for alcohol detox at [facility] 04/09/24 -reports she is currently not drinking 08/24/24. Encouraged to continue abstinence. -Vague about drinking, but seemingly still drinking 12/29/24 * Assessment & Plan Note - Ariela Pa - 12/29/2024 10:21 AM ESTAssociated Problem(s): Complex care coordination -Has [employer] services with [facility] -She is applying [facility] 01/11/2024 -In our C3 complex care management program -referred to [facility] 01/04/2024 -Messaged sent to C3 skin care instructor for assistance in care visits * Assessment & Plan Note - Ariela Pa - 12/29/2024 10:21 AM ESTAssociated Problem(s): History of chronic CHF (Deleted) -Echocardiogram done 10/18/2021 had shown EF 30-35%, mild LVH. She did not come for cardiology follow-up after that finding. A stress test at that time was incomplete. -Dx with acute congestive heart failure with reduced EF during admission to [facility] 06/22/24. - She was started on [...] effusion and indeterminate diastolic function -Seen by [facility] Cardiology 08/01/24 : exercise nuclear stress [...] type, invasive tumor 2.2 cm ER positive, AL positive, HER-2/RON negative, two sentinel nodes negative. -[facility] Oct, completed [...] flare up. Will call to reschedule her [id number]/08/25 -Has appt for mammogram in December 2024. * Assessment & Plan Note - Ariela Pa - 12/29/2024 10:19 AM ESTAssociated Problem(s): Tobacco dependence syndrome -Cigg/day: 5-6 -Age started: -Total years smoking: -Pack year history: Encouraged smoking cessation resources such as pharmacomtherapy, [facility] smoking cessation group, and [facility] pharmacy smoking cessation clinic Discussed [...] 1:00 PM EDT Clinical Support [facility] DIABETES/NUTRITION [address] [place] [address] Herbert Estebane, RD [address] [place] [address] 03/29/2025 2:00 PM EDT Office Visit [facility] ADULT DENTAL [address] [place] [address] Heidi, Jenny [address] [place] [address] documented as of this encounter Procedures Procedure Name Priority Date/Time Associated Diagnosis Comments URIC ACID Routine 12/29/2024 10:53 AM EST Gout, unspecified cause, unspecified chronicity, unspecified site MAGNESIUM Routine 12/29/2024 10:53 AM EST Hypomagnesemia LIPID PANEL, STANDARD Routine 12/29/2024 10:53 AM EST Benign essential hypertension BASIC METABOLIC PANEL Routine 12/29/2024 10:53 AM EST Benign essential hypertension documented in this encounter Results * (ABNORMAL) Uric acid (12/29/2024 10:53 AM EST) Uric Acid 5.8(H) 2.4 - 5.7 mg/dL [facility] Blood Venous blood specimen / Unknown 12/29/2024 10:53 AM EST 12/29/2024 1:06 PM EST us Shereen Latham MD LAB BLOOD ORDERABLES Final Result [facility] [address] [place] [phone] [phone] * Magnesium (12/29/2024 10:53 AM EST) Magnesium 1.8 1.6 - 2.6 mg/dL [facility] Blood Venous blood specimen / Unknown 12/29/2024 10:53 AM EST 12/29/2024 1:06 PM EST Shereen Latham MD LAB BLOOD ORDERABLES Final Result Performing Organization Address [facility]/ZIP Co de Phone Number [facility] [address] [place] [phone] [phone] * (ABNORMAL) Basic Metabolic Panel (12/29/2024 10:53 AM EST) Sodium 139 135 - 145 mmol/L [facility] Potassium 4.1 3.3 - 5.1 mmol/L [facility] Chloride 105 96 - 108 mmol/L [facility] Carbon Dioxide 23 22 - 29 mmol/L [facility] Anion Gap 15 12 - 20 [facility] Urea Nitrogen (BUN) 32(H) 9 - 16 mg/dL [facility] Creatinine, Serum 0.91 0.5 - 1.4 mg/dL [facility] Estimated Glomerular Filt Rate >60 [facility] Comment:Chronic Kidney Disea se: Estimated GFR < 60 mL/min/1.33o0Itiuxs Kidney Disease: Estimated GFR < 15 mL/min/1.73m2 Glucose 161(H) 60 - 115 mg/dL [facility] Calcium 9.3 8.4 - 10.2 mg/dL [facility] Blood Venous blood specimen / Unknown 12/29/2024 10:53 AM EST 12/29/2024 1:06 PM EST Shereen Latham MD LAB BLOOD ORDERABLES Final Result Performing Organization Address City/[facility]/ZIP Co de Phone Number [facility] [address] [place] [address] [phone] * (ABNORMAL) Lipid Panel, Standard (12/29/2024 10:53 AM EST) Triglycerides 192(H) <150 mg/dL [facility] Comment:Desirable Triglyceri de: less than 150 mg/dLBorderline High Triglyceride 150-199 mg/dLHigh Triglyceride: 200-499 mg/dLVery High Triglyceride: greater than or equal to 5OO mg/dL Cholesterol 197 <200 mg/dL [facility] Comment:Desirable Cholestero l: less than 200 mg/dLBorderline High Cholesterol: 200-239 mg/dLHigh Cholesterol: greater than 239 mg/dL LDL Cholesterol Calculated 111(H) <100 mg/dL [facility] Comment:Desirable LDL: less than 100 mg/dLNear Optimal/Above Optimal LDL: 110- 129 mg/dLBorderline High LDL: 130-159 mg/dLHigh LDL: 160-189 mg/dLVery High LDL: greater than or equal to 190 mg/dL HDL Cholesterol 48 >40 mg/dL [facility] Comment:Desirable HDL: great er than 40 mg/dL Note: This HDL assay may give artificially low results in patients with liver disease. Blood Venous blood specimen / Unknown 12/29/2024 10:53 AM EST 12/29/2024 1:06 PM EST Shereen Latham MD LAB BLOOD ORDERABLES Final Result [facility] [address] [place] [phone] documented in this encounter Visit Diagnoses Diagnosis History of [...] Noted Time PHQ-9 Depression Total Score: 22 12/29/ 025 10:17 AM EST documented as of this encounter Care Teams Coffee Grinder Relationship Specialty Start Date End Date Shereen Latham MD [address] [place] [address] PCP - General Family Medicine 11/02/18 Nupur Bullock, CharleneD [address] [place] [address] Pharmacist Internal Medicine 08/09/24 Sury Benitez [address] [place] [address] [facility] [address] [place] [address] Pulmonary Disease 09/27/24 Nirali Madrid OD [address] [place] [address] Optometry 10/27/24 Li Grande MD [address] [place] [address] Hematology and Oncology 10/27/24 Anselmo Gates MD [address] [place] [address] Orthopaedic Surgery 10/27/24 Margaret Holman [address] [facility] [address] [place] [address] Cardiology 10/27/24 Herberth Stokes MD [address] [facility] [address] [place] [address] Gastroenterology 10/27/24 Pily Delaney Editing ClerkClient Development Consultant 07/22/24 Elie Vicky [facility] 12/29/24 documented as of this encounter
--- OUTSIDE RECORDS SUMMARY | 2025-01-19 17:28 | XMS_ITS | Encounter Summary ---
Author Organization [employer] Address 75 [facility] 7t [place] [address] Care Team Providers Care Reducing System Operator Name Role Phone Shereen Latham MD Primary Care Provider [phone]- [phone] Nupur Bullock PharmD Unavailable Sury Benitez Unavailable [phone] Nirali Madrid OD Unavailable Li Grande MD Unavailable [phone] Anselmo Gates MD Unavailable Margaret Holman Unavailable Herberth Stokes MD Unavailable [phone] Reason for Visit * Reason Onset Date Comments Medication Question 08/25/2024 Encounter Details Date Type Department Care Team (Late st Contact Info) Description 08/25/2024 Telephone [facility] MEDICINE 230 [place], [place] [phone] Shereen Latham MD 230 [place], [place] [phone] Medication Question Social History Tobacco Use Types [...] any questions you can contact pt at [phone]. documented in this encounter Plan of Treatment Upcoming Encounters Date Type Department Care Team (Late st Contact Info) Description 01/24/2025 1:00 PM EDT Clinical Support [facility] DIABETES/NUTRITION 230 [place] [address] Ernestina Esteban, RD 230 [place] [address] 03/29/2025 2:00 PM EDT Office Visit [facility] ADULT DENTAL 230 [place] [address] Heidi, Jenny 230 [place] [address] documented as of this encounter Visit Diagnoses Not on filedocumented in this encounter Additional Health Concerns Assessment Noted Time PHQ-9 Depression Total Score: 13 024 4:53 PM EDT documented as of this encounter Care Teams Reducing System Operator Relationship Specialty Start Date End Date Shereen Latham MD 230 [place] [address] PCP - General Family Medicine 11/02/18 Nupur Bullock PharmD 230 [place] [address] Pharmacist Internal Medicine 08/09/24 Sury Benitez [address] [place] [address] [address] Pulmonary Disease 09/27/24 Nirali Madrid OD 267 [place] [address] Optometry 10/27/24 Li Grande MD [address] [place] [address] Hematology and Oncology 10/27/24 Anselmo Gates MD [address] [place] [address] Orthopaedic Surgery 10/27/24 Margaret Holman [address] [place] [address] Cardiology 10/27/24 Herberth Stokes MD [address] [place] [address] Gastroenterology 10/27/24 Pily Delaney On CallTelephone Interviewer 07/22/[address] [facility] Psychology 12/29/24 documented as of this encounter
--- OUTSIDE RECORDS SUMMARY | 2025-01-19 17:28 | XMS_ITS | Encounter Summary ---
Author Organization [employer] Address [address] [facility] 7t [place] [address] Care Team Providers Care Supervisor Train Operations Name Role Phone Shereen Latham MD Primary Care Provider [phone] Nupur Bullock PharmD Unavailable Sury Benitez Unavailable [phone] JuliusNirali castellanos OD Unavailable [phone] Li Grande MD Unavailable [phone] Anselmo Gates MD Unavailable Margaret Holman Unavailable Herberth Stokes MD Unavailable [phone] Encounter Details Date Type Department Care Team (Latest Contact Info) Description 07/06/2019 Abstract [facility] CONVERSIONS Dental, Provider, DDS Social History [...] 01/24/2025 1:00 PM EDT Clinical Support [facility] DIABETES/NUTRITION 230 [place] [address] Ernestina Esteban, KATE 230 [place] [address] 03/29/2025 2:00 PM EDT Office Visit [facility] ADULT DENTAL 230 [place] [address] Jenny Gordon 230 [place] [address] documented as of this encounter Visit Diagnoses Not on filedocumented in this encounter Care Teams Supervisor Train Operations Relationship Specialty Start Date End Date Shereen Latham MD 230 [place] [address] PCP - General Family Medicine 11/02/18 Nupur Bullock, CharleneD 230 [place] [address] Pharmacist Internal Medicine 08/09/24 Sury Benitez [address] [place] [address] Dr [facility] 103 [place] [address] Pulmonary Disease 09/27/24 Nirali Madrid OD 267 [place] [address] Optometry 10/27/24 Li Grande MD [address] [place] [address] Hematology and Oncology 10/27/24 Anselmo Gates MD [address] [place] [address] Orthopaedic Surgery 10/27/24 Margaret Holman 11 [facility] 3rd [place] [address] Cardiology 10/27/24 Herberth Stokes MD 11 [facility] 3rd [place] [address] Gastroenterology 10/27/24 Pily Delaney Air Transport ProfessionalsAml Analyst 07/22/24 Elie Vicky [facility] Psychology 12/29/24 documented as of this encounter
--- OUTSIDE RECORDS SUMMARY | 2025-01-19 17:28 | XMS_ITS | Encounter Summary ---
Author Organization [employer] Address 75 [facility] 7t [place] [address] Care Team Providers Care Software Intern Name Role Phone Shereen Latham MD Primary Care Provider [phone] Nupur Bullock PharmD Unavailable Sury Benitez Unavailable [phone] Nirali Madrid OD Unavailable [phone] Li Grande MD Unavailable [phone] Anselmo Gates MD Unavailable Margaret Holman Unavailable Herberth Stokes MD Unavailable [phone] Encounter Details Date Type Department Care Team (Late st Contact Info) Description 12/29/2024 Orders Only [facility] MEDICINE 230 [place], [place] [phone] Shereen Latham MD 230 [place], [place] [phone] Gout, unspecified cause, unspecified chronicity, unspecified site Social History Tobacco Use Types Packs/Day Years [...] Description 01/24/2025 1:00 PM EDT Clinical Support [facility] DIABETES/NUTRITION 230 [place], [place] [phone] Ernestina Esteban RD 230 [place], [place] [phone] 03/29/2025 2:00 PM EDT Office Visit [facility] ADULT DENTAL 230 [place] [address] Jenny Gorodn 230 [place] [address] documented as of this encounter Visit Diagnoses Diagnosis Gout, unspecified cause, unspecified chronicity, unspecified site documented in this encounter Additional Health Concerns Assessment Noted Time PHQ-9 Depression Total Score: 22 025 10:17 AM EST documented as of this encounter Care Teams Software Intern Relationship Specialty Start Date End Date Shereen Latham MD 230 [place] [address] PCP - General Family Medicine 11/02/18 Nupur Bullock PharmD 230 [place] [address] Pharmacist Internal Medicine 08/09/24 Sury Benitez [address] [place] [address] Dr [facility] 103 [place] [address] Pulmonary Disease 09/27/24 Nirali Madrid OD [address] [place] [address] Optometry 10/27/24 Li Grande MD [address] [place] [address] Hematology and Oncology 10/27/24 Anselmo Gates MD [address] [place] [address] Orthopaedic Surgery 10/27/24 Margaret Holman 11 [facility] 3rd [place] [address] Cardiology 10/27/24 Herberth Stokes MD 11 [facility] [address] [place] [address] Gastroenterology 10/27/24 Pily Delaney Dance InstructorGeospatial Developer 07/22/24 Elie BRASHER [facility] Psychology 12/29/24 documented as of this encounter
--- OUTSIDE RECORDS SUMMARY | 2025-01-19 17:28 | XMS_ITS | Encounter Summary ---
Author Organization [employer] Address [address] [facility] 7t [place] [address] Care Team Providers Care Editor In Chief Newspaper Name Role Phone Shereen Latham MD Primary Care Provider [phone] Nupur Bullock PharmD Unavailable Sury Benitez Unavailable [phone] Nirali Madrid OD Unavailable [phone] Li Grande MD Unavailable [phone] Anselmo Gates MD Unavailable Margaret Holman Unavailable Herberth Stokes MD Unavailable [phone] Reason for Visit * Reason Onset Date Comments Med Refill 12/21/2024 Encounter Details Date Type Department Care Team (Late st Contact Info) Description 12/21/2024 Refill [facility] [address] [place], [place] [phone] Shereen Latham MD 230 [place], [place] [phone] Pain Social History Tobacco Use Types Packs/Day [...] Description 01/24/2025 1:00 PM EDT Clinical Support [facility] DIABETES/NUTRITION 230 [place] [address] [place] [address] 03/29/2025 2:00 PM EDT Office Visit [facility] ADULT DENTAL 230 [place] [address] Jeramie Gordonaris 230 [place] [address] documented as of this encounter Visit Diagnoses Diagnosis Pain Generalized pain documented in this encounter Additional Health Concerns Assessment Noted Time PHQ-9 Depression Total Score: 13 024 4:53 PM EDT documented as of this encounter Care Teams Editor In Chief Newspaper Relationship Specialty Start Date End Date Shereen Latham MD 230 [place] [address] PCP - General Family Medicine 11/02/18 Nupur Bullock, CharleneD 230 [place] [address] Pharmacist Internal Medicine 08/09/24 Sury Benitez [address] [place] [address] [address] Pulmonary Disease 09/27/24 Nirali Madrid, OD 267 [place] [address] Optometry 10/27/24 Li Grande MD [address] [place] [address] Hematology and Oncology 10/27/24 Anselmo Gates MD [address] [place] [address] Orthopaedic Surgery 10/27/24 Margaret Holman [address] 3rd [place] [address] Cardiology 10/27/24 Herberth Stokes MD [address] [place] [address] Gastroenterology 10/27/24 Pily Delaney Correspondence School TeacherCustomer Success Advocate 07/22/24 documented as of this encounter
== END 2025-01-19 15:56 | disposition home or self-care (01) ==
LOC: HO.HCS 15:04
PROVIDERS: PCP Family Medicine; Visit Provider Nurse Practitioner Family
DX: R07.89 Other chest pain (principal); I50.30 Unspecified diastolic (congestive) heart failure; I10 Essential (primary) hypertension; R06.00 Dyspnea, unspecified
CPT/HCPCS: 93010; 99214

== ENCOUNTER 2025-01-19 15:04 | Outpatient (REF) | payer MEDICAID, SELFPAY ==
[2025-01-19 17:16] LABS: D Dimer High Sensitivity < 150 NG/ML
[2025-01-19 17:39] LABS: B Type Natriuretic Peptide 22 pg/mL (<100)
[2025-01-19 17:44] LABS: Troponin-I High Sensitivity 7.8 ng/L (<3.5-17.0)
== END 2025-01-19 15:05 | disposition home or self-care (01) ==
LOC: HO.LAB 15:04
PROVIDERS: PCP Family Medicine; Visit Provider Nurse Practitioner Family
DX: R07.89 Other chest pain (principal); R06.00 Dyspnea, unspecified; I11.0 Hypertensive heart disease with heart failure; I50.30 Unspecified diastolic (congestive) heart failure; R00.0 Tachycardia, unspecified
CPT/HCPCS: 36415; 83880; 84484; 85379; 93005; 99212

== ENCOUNTER 2025-01-30 14:56 | Outpatient (AMB) | payer MEDICAID, SELFPAY ==
[2025-01-30 15:00] VITALS: BP 124/68; PULSE 100; O2SAT 99; BMI 31.4
--- NOTE | 2025-01-30 15:00 | MHC.OFFVIS ---
Vital Signs 01/30/25 15:00 Height 5 ft 7 in Weight 200 lb 9.93 oz BMI 31.4 BP 124/68 Blood Pressure Location Rt brachial Position Sitting Pulse 100 Pulse Source Pulse Oximeter Pulse Oximetry (%) 99 Oxygen Delivery Method Room Air Intake Visit Reasons: Shortness of breath Riprap Man Required: No Cut And Cover Line Worker: Cut And Cover Line Worker offered & declined Accompanied by: Self / Same As Patient Allergies amoxicillin [AMOXICILLIN] Allergy (Intermediate, Verified 01/30/25 15:03) rash, rash/itching sulfamethoxazole [From BACTRIM] Allergy (Intermediate, Verified 01/30/25 15:03) RASH trimethoprim [From BACTRIM] Allergy (Intermediate, Verified 01/30/25 15:03) RASH hydrocodone [Hydrocodone] Allergy (Mild, Verified 01/30/25 15:03) ITCH ibuprofen [From Motrin] Allergy (Mild, Verified 01/30/25 15:03) UPSET STOMACH latex [Latex] Allergy (Mild, Verified 01/30/25 15:03) ITCH Medication List - Last Reconciled 01/30/25 by Sarai Garcia LPN acetaminophen (Tylenol Extra Strength) 500 mg PO Q6H PRN acetaminophen 500 mg PO Q6H PRN [ACL defiance brace n/a] albuterol sulfate 90 mcg/actuation 2 puffs inhalation Q4H PRN albuterol sulfate 2.5 mg (3 mL) inhalation Q4-6H PRN allopurinol 100 mg PO BID cetirizine 10 mg PO DAILY PRN cholecalciferol (vitamin D3) (Vitamin D3) 1 cap PO DAILY fluticasone propion-salmeterol 115-21 mcg/actuation (Advair HFA) 2 puffs inhalation Q12H folic acid 1 tab PO DAILY furosemide 40 mg See Protocol PO DAILY losartan 25 mg See Protocol PO BID magnesium oxide 400 mg PO BIDPC 30 days metoprolol succinate ER 25 mg PO DAILY omeprazole 1 cap PO DAILY@0630 spironolactone 12.5 mg (1/2 x 25 mg) PO QAM 90 days thiamine HCl (vitamin B1) 1 tab PO DAILY HPI HPI Shortness of breath: Details: Azra is a pleasant 49 year old female, current minimal smoker, with 10 pack year history, with underlying HTN, CHF , h/o of right breast adenocarcinoma s/p mastectomy/chemo 2007 and alcohol dependence. She reports progressively worsening dyspnea for the past years with associated chest tightness, denying cough or wheezing. PFT 08/25 revealed mild restrictive defect, with response to bronchodilators in small to medium airways only with slightly increased DLCO, WNL. CT chest demonstrates minimal bronchiectasis and mild wall thickening suggesting chronic bronchitis. She was started on Advair for likely asthma, with good effect however she states she does not use consistently, continues with persistent chest tightness and dyspnea. Since the last visit, she has been evaluated by cardiology, switched carvedilol to metoprolol and will be undergoing echo and stress test for increasing palpitations and chest pain. [facility] Medical History Depression Anxiety and depression Lower back pain History of COVID-19 Uncontrolled hypertension Panic attack H/O ETOH abuse Anxiety History of low potassium Breast cancer Hypertension Surgical History History of carpal tunnel release Hx of tubal ligation History of breast lump/mass excision H/O: hysterectomy Family History Mother Heart disease Alzheimers disease Social History Household Members: None Housing: Apartment Housing Other:: 4th floor. No elevator Are you a primary attending ambulatory care to a significant other at home: No Do you presently have visiting nurse or other home services: Yes ([employer]ace[employer] Maker twice daily) Alcohol intake: former Comment: 1:1 SI Patient Tobacco Use Status: Current someday Tobacco user Tobacco use type: Cigarette Cigarettes Per Day: 5 Years Smoked: 38YRS e-Cigarette/Vaping Use: Never Used Second Hand Smoke Exposure: Yes Advance Directives Date on File: 02/11/22 service: No Current occupational status: disabled Physical Exam Vital Signs: Last Vital Signs Pulse 100 01/30/25 15:00 BP 124/68 01/30/25 15:00 Pulse Ox 99 01/30/25 15:00 Oxygen Delivery Method Room Air 01/30/25 15:00 BMI result Body Mass Index 31.4 Assessment & Plan Assessment & Plan (1) Chronic bronchitis: Code(s): J42 - Unspecified chronic bronchitis Category: Medical (2) Restrictive ventilatory defect: Code(s): R94.2 - Abnormal results of pulmonary function studies Category: Medical (3) Dyspnea: Code(s): R06.00 - Dyspnea, unspecified Category: Medical (4) Nicotine dependence, cigarettes, uncomplicated: Code(s): F17.210 - Nicotine dependence, cigarettes, uncomplicated Category: Medical (5) Multiple pulmonary nodules: Code(s): R91.8 - Other nonspecific abnormal finding of lung field Category: Medical Plan Encouraged patient to consistently use Advair as well as nebulized therapy. Will send supplies for nebulizer. She has upcoming cardiology evaluation with stress test and echo, to assess for cardiac component. Recent BNP WNL, however continues to report worsening orthopnea, denies BLE edema. Patient also reports symptoms suggestive of LEX with persistent daytime fatigue, nonrestorative sleep and loud snoring. Prior home sleep study 2021 revealed AHI 5, however patient has gained almost 20lbs since last study. Will send for home sleep study. All questions were answered and patient is in agreement of plan. Will follow up in 2-3 months or sooner if needed. Orders: Orders RT home sleep study 01/30/25 G47.8 - Other sleep disorders, R40.0 - Somnolence Coding Level of Care Code Est Pt Level 4 (71172) Diagnoses Chronic bronchitis J42 Restrictive ventilatory defect R94.2 Dyspnea R06.00 Nicotine dependence, cigarettes, uncomplicated F17.210 Multiple pulmonary nodules R91.8
--- OUTSIDE RECORDS SUMMARY | 2025-01-30 16:52 | XMS_ITS | Encounter Summary ---
Author Organization [employer] Address 75 [facility] 7t [place] [address] Care Team Providers Care Commercial Sheet Metal Foreman Name Role Phone Shereen Latham MD Primary Care Provider [phone] Nupur Bullock PharmD Unavailable Sury Benietz Unavailable [phone] Nirali Madrid OD Unavailable Li Grande MD Unavailable [phone] Anselmo Gates MD Unavailable Margaret Holman Unavailable Herberth Stokes MD Unavailable [phone] Reason for Visit * Reason Onset Date Comments Nurse Triage 05/25/2024 Encounter Details Date Type Department Care Team (Late st Contact Info) Description 05/25/2024 Telephone [facility] MEDICINE [address] [place], [place] [phone] Shereen Latham MD 230 [place], [place] [phone] Nurse Triage Social History Tobacco Use Types [...] leftfoot pain and Pt was seen by pumper helper, Leta Lunsford MD 05/11/24 also (report is on the chart). Pt had been advised to stop BP med chlorthalidone per pumper helper [facility] because that particular medication is known to [...] anxiety. Pt is advised to come to [facility] today , open till 8pm, to be [...] Care Team (Late st Contact Info) Description 02/13/2025 2:00 PM EDT Clinical Support [facility] DIABETES/NUTRITION 230 [place] [address] [place] [address] 02/17/2025 2:30 PM EDT Office Visit [facility] ADULT DENTAL [address] [place] [address] Paz-Isa Connor, DDS [address] [place] [address] 03/29/2025 2:00 PM EDT Office Visit [facility] ADULT DENTAL [address] [place] [address] Jeramie Gordonaris [address] [place] [address] documented as of this encounter Visit Diagnoses Not on filedocumented in this encounter Additional Health Concerns Assessment Noted Time PHQ-9 Depression Total Score: 22 024 9:12 AM EDT documented as of this encounter Care Teams Commercial Sheet Metal Foreman Relationship Specialty Start Date End Date Shereen Latham MD 230 [place] [address] PCP - General Family Medicine 11/02/18 Nupur Bullock PharmD 230 [place] [address] Pharmacist Internal Medicine 08/09/24 Sury Benitez [address] [place] [address] [address] [place] [address] Pulmonary Disease 09/27/24 Nirali Madrid OD 267 [place] [address] Optometry 10/27/24 Li Grande MD [address] [place] [address] Hematology and Oncology 10/27/24 Anselmo Gates MD [address] [place] [address] [address] [place] [address] Orthopaedic Surgery 10/27/24 Margaret Holman [address]rd [place] [address] Cardiology 10/27/24 Herberth Stokes MD [address] [place] [address] Gastroenterology 10/27/24 Pily Delaney Tacker Elastic BandMetal Caster 07/22/24 Elie Vicky [facility] Psychology 12/29/24 documented as of this encounter
--- OUTSIDE RECORDS SUMMARY | 2025-01-30 16:52 | XMS_ITS | Encounter Summary ---
Author Organization [email or web address] Address 75 [facility] 7t [place] [address] Care Team Providers Care Desk Attendant Name Role Phone Shereen Latham MD Primary Care Provider [phone] Nupur Bullock PharmD Unavailable Sury Benitez Unavailable [phone] Nirali Madrid OD Unavailable Li Grande MD Unavailable [phone] Anselmo Gates MD Unavailable Margaret Holman Unavailable Herberth Stokes MD Unavailable [phone] Encounter Details Date Type Department Care Team (Late st Contact Info) Description 04/26/2024 Orders Only [facility] MEDICINE 230 [place], [place] [phone] Junie Damon MD 230 [place], [place] [phone] Social History Tobacco Use Types Packs/Day Years [...] Description 02/13/2025 2:00 PM EDT Clinical Support [facility] DIABETES/NUTRITION 230 [place] [address] [place] [address] 02/17/2025 2:30 PM EDT Office Visit [facility] ADULT DENTAL [address] [place] [address] Alfredo De La Rosafemia, DDS 230 [place] [address] 03/29/2025 2:00 PM EDT Office Visit [facility] ADULT DENTAL 230 [place] [address] Jenny Gordon 230 [place] [address] documented as of this encounter Visit Diagnoses Not on filedocumented in this encounter Additional Health Concerns Assessment Noted Time PHQ-9 Depression Total Score: 23 024 1:45 PM EDT documented as of this encounter Care Teams Desk Attendant Relationship Specialty Start Date End Date Shereen Latham MD 230 [place] [address] PCP - General Family Medicine 11/02/18 Nupur Bullock, CharleneD 230 [place] [address] Pharmacist Internal Medicine 08/09/24 Sury Benitez [address] [place] [address] Dr [facility] 103 [place] [address] Pulmonary Disease 09/27/24 Nirali Madrid OD 267 [place] [address] Optometry 10/27/24 Li Grande MD [address] [place] [address] Hematology and Oncology 10/27/24 Anselmo Gates MD [address] [place] [address] Orthopaedic Surgery 10/27/24 Margaret Holman [address] 3rd [place] [address] Cardiology 10/27/24 Herberth Stokes MD [address] 3rd [place] [address] Gastroenterology 10/27/24 Pily Delaney Supervisor Wrapping RoomGarment Inspector 07/22/24 Elie Vicky [facility] 12/29/24 documented as of this encounter
--- OUTSIDE RECORDS SUMMARY | 2025-01-30 16:52 | XMS_ITS | Encounter Summary ---
Author Organization [employer] Address 75 [facility] 7t [place] [address] Care Team Providers Care Hydro Electric Station Operator Name Role Phone Shereen Latham MD Primary Care Provider Nupur Bullock PharmD Unavailable Sury Benitez Unavailable [phone] Nirali Madrid OD Unavailable Li Grande MD Unavailable [phone] Anselmo Gates MD Unavailable Margaret Holman Unavailable Herberth Stokes MD Unavailable [phone] Reason for Referral * Imaging (Routine) - Pending Review Specialty Diagnoses / Procedures Referred By Walter nelson Referred To Contact Radiology Diagnoses Breast pain, left Procedures BI Mammogram Diagnostic Tomosynthesis Left Stacey Khan MD [address] [place] [address] Phone: tel: fax: [facility] [address] [place] [address] Phone: tel: fax: Referral ID Status Reason Start Date Expiration Date V isits Requested Visits Authorized [id number] Pending Review 01/19/2025 01/19/2026 1 1 * Imaging (Routine) - Pending Review Specialty Diagnoses / Procedures Referred By Contanna t Referred To Contact Radiology Diagnoses Breast pain, left Procedures BI US Breast Limited Left Stacey Khan MD [address] [place] [address] Phone: tel: fax: [address] Phone: tel: fax: Referral ID Status Reason Start Date Expiration Date V isits Requested Visits Authorized [id number] Pending Review 01/19/2025 01/19/2026 1 1 Encounter Details Date Type Department Care Team (Late st Contact Info) Description 01/19/2025 Orders Only [facility] MEDICINE [address] [place] [address] Stacey Khan MD [address] [place] [address] Breast pain, left (Primary Dx) Social History [...] the past 12 months, has t he [employer], gas, oil or water company threatened to [...] Description 02/13/2025 2:00 PM EDT Clinical Support [facility] DIABETES/NUTRITION [address] [place] [address] Ernestina Esteban, RD [address] [place] [address] 02/17/2025 2:30 PM EDT Office Visit [facility] ADULT DENTAL [address] [place] [address] Paz-Connor, Isa, DDS [address] [place] [address] 03/29/2025 2:00 PM EDT Office Visit [facility] ADULT DENTAL [address] [place] [address] HeidiJenny castaneda [address] [place] [address] Scheduled Orders Name Type Priority Associated Diagnoses [...] documented as of this encounter Care Teams Hydro Electric Station Operator Relationship Specialty Start Date End Date Shereen Latham MD [address] [place] [address] PCP - General Family Medicine 11/02/18 Nupur Bullock PharmD [address] [place] [address] Pharmacist Internal Medicine 08/09/24 Sury Benitez [address] [place] [address] Dr [facility] [address] [place] [address] Pulmonary Disease 09/27/24 Nirali Madrid OD [address] [place] [address] Optometry 10/27/24 Li Grande MD [address] [place] [address] Hematology and Oncology 10/27/24 Anselmo Gates MD 10 [facility] 203 [place] [address] Orthopaedic Surgery 10/27/24 Margaret Holman 11 [facility] 3rd [place] [address] Cardiology 10/27/24 Herberth Stokes MD 11 [facility] 3rd [place] [address] Gastroenterology 10/27/24 Pily Delaney Learning AnalystPalletizer 07/22/24 Elie BRASHRE [facility] Psychology 12/29/24 documented as of this encounter
--- OUTSIDE RECORDS SUMMARY | 2025-01-30 16:52 | XMS_ITS | Encounter Summary ---
Author Organization [employer] Address 75 [facility] 7t [place] [address] Care Team Providers Care Presentation Manager Name Role Phone Shereen Latham MD Primary Care Provider Nupur Bullock PharmD Unavailable Sury Benitez Unavailable [phone] Nirali Madrid OD Unavailable Li Grande MD Unavailable [phone] Anselmo Gates MD Unavailable Margaret Holman Unavailable Herberth Stokes MD Unavailable [phone] Reason for Referral * Consultation (Routine) - Closed Specialty Diagnoses / Procedures Referred By Walter t Referred To Contact Obstetrics and Gynecology Diagnoses Women's annual routine gynecological examination Stacey Khan MD [address] [place] [address] Phone: tel: fax: [facility] Women? s Services [address] 5[address] (Main Hospital Entrance) [place], [place] Phone: tel: fax: Referral ID Status Reason Start Date Expiration Date V isits Requested Visits Authorized [id number] Closed Specialty Services Required 01/19/2025 01/19/2026 9 9 Encounter Details Date Type Department Care Team (Late st Contact Info) Description 01/19/2025 Orders Only [facility] MEDICINE [address] [place] [address] Stacey Khan MD [address] [place] [address] Women's annual routine gynecological examination (Primary Dx) [...] Description 02/13/2025 2:00 PM EDT Clinical Support [facility] DIABETES/NUTRITION 230 [place] [address] Erenstina Esteban, RD 230 [place] [address] 02/17/2025 2:30 PM EDT Office Visit [facility] ADULT DENTAL 230 [place] [address] Paz-Connor, Isa, DDS [address] [place] [address] 03/29/2025 2:00 PM EDT Office Visit [facility] ADULT DENTAL 230 [place] [address] Heidi, Jenny 230 [place] [address] Scheduled Referrals Name Type Priority Associated Diagnoses Orde r Schedule Referral to Obstetrics / Gynecology Outpatient Referral Routine Women's annual routine gynecological examination Expected: 01/19/2025 (Approximate), Expires: 01/19/2026 documented as of this encounter Procedures Procedure Name Priority Date/Time Associated Diagnosis Comments D DIMER HIGH SENSITIVITY Routine 01/19/2025 4:33 PM EDT Women's annual routine gynecological examination HIGH SENSITIVITY TROPONIN I Routine 01/19/2025 4:33 PM EDT Women's annual routine gynecological examination B TYPE NATRIURETIC PEPTIDE (BNP) Routine 01/19/2025 4:33 PM EDT Women's annual routine gynecological examination documented in this encounter Results * High Sensitivity Troponin I (01/19/2025 4:33 PM EDT) [facility] TROPONIN I HIGH SENSITIVITY 7.8 <3.5 - 17.0 ng/L [facility] Comment:The Henriquez high sens itivity Troponin-I results should beused in conjunction with other diagnostic information suchas ECG, clinical observations and information, and patientsymptoms to aid in the diagnosis of NC. 01/19/2025 4:33 PM EDT 01/19/2025 4:34 PM EDT Generic External Data Provider LAB BLOOD ORDERAB LES Final Result Performing Organization Address [facility]/ZIP Co de Phone Number [facility] [address] [place] [phone] * B Type Natriuretic Peptide (BNP) (01/19/2025 4:33 PM EDT) [facility] B Type Natriuretic Peptide 22 <100 pg/mL [facility] 01/19/2025 4:33 PM EDT 01/19/2025 4:34 PM EDT Twonq External Data Provider LAB BLOOD ORDERAB LES Final Result Performing Organization Address [facility] Co de Phone Number [facility] [address] [place] [phone] * D Dimer High Sensitivity (01/19/2025 4:33 PM EDT) [facility] D Dimer High Sensitivity <150 NG/ML [facility] Comment:D-DIMER HS REFERENCE RANGENote: Our [...] Provider LAB BLOOD ORDERAB LES Final Result [facility] [address] [place] [phone] documented in this encounter Visit Diagnoses Diagnosis Women's annual routine gynecological examination- Primary documented in this encounter Additional Health Concerns Assessment Noted Time PHQ-9 Depression Total Score: 22 025 10:17 AM EST documented as of this encounter Care Teams Presentation Manager Relationship Specialty Start Date End Date Shereen Latham MD [address] [place] [address] PCP - General Family Medicine 11/02/18 Nupur Bullock PharmD [address] [place] [address] Pharmacist Internal Medicine 08/09/24 Sury Benitez [address] [facility] [address] [facility] 103 [place] [address] Pulmonary Disease 09/27/24 Nirali Madrid OD [address] [place] [address] Optometry 10/27/24 Li Grande MD [address] [place] [address] Hematology and Oncology 10/27/24 Anselmo Gates MD [address] [place] [address] Orthopaedic Surgery 10/27/24 Margaret Holman 11 [facility] 3rd [place] [address] Cardiology 10/27/24 Herberth Stokes MD 11 [facility] 3rd [place] [address] Gastroenterology 10/27/24 Pily Delaney Cane Flume Chute OperatorApron Man 07/22/24 Elie BRASHER [facility] Psychology 12/29/24 documented as of this encounter
--- OUTSIDE RECORDS SUMMARY | 2025-01-30 16:52 | XMS_ITS | Encounter Summary ---
Author Organization [employer] Address 75 [facility] 7t [place] [address] Care Team Providers Care Sail Repair Person Name Role Phone Shereen Latham MD Primary Care Provider [phone] Nupur Bullock PharmD Unavailable Sury Benitez Unavailable [phone] Nirali Madrid OD Unavailable [phone] Li Grande MD Unavailable [phone] Anselmo Gates MD Unavailable Margaret Holman Unavailable Herberth Stokes MD Unavailable [phone] Reason for Visit * Reason Onset Date Comments Medication Question 07/05/2024 Encounter Details Date Type Department Care Team (Late st Contact Info) Description 07/05/2024 Telephone [facility] MEDICINE [address] [place], [place] [phone] Shereen Latham MD 230 [place], [place] [phone] Medication Question Social History Tobacco Use Types [...] is no medication interaction. Contact pt at [phone] documented in this encounter Plan of Treatment Upcoming Encounters Date Type Department Care Team (Late st Contact Info) Description 02/13/2025 2:00 PM EDT Clinical Support [facility] DIABETES/NUTRITION [address] [place] [address] Ernestina Esteban, RD [address] [place] [address] 02/17/2025 2:30 PM EDT Office Visit [facility] ADULT DENTAL [address] [place] [address] Isa De La Rosa, DDS [address] [place] [address] 03/29/2025 2:00 PM EDT Office Visit [facility] ADULT DENTAL [address] [place] [address] Jenny Gordon [address] [place] [address] documented as of this encounter Visit Diagnoses Diagnosis Pain Generalized pain documented in this encounter Additional Health Concerns Assessment Noted Time PHQ-9 Depression Total Score: 13 024 4:53 PM EDT documented as of this encounter Care Teams Sail Repair Person Relationship Specialty Start Date End Date Shereen Latham MD 230 [place] [address] PCP - General Family Medicine 11/02/18 Nupur Bullock, CharleneD 230 [place] [address] Pharmacist Internal Medicine 08/09/24 Sury Benitez [address] [facility] [address] [facility] 103 [place] [address] Pulmonary Disease 09/27/24 Nirali Madrid, SUSAN [address] [place] [address] Optometry 10/27/24 Li Grande MD 575 [place] [address] Hematology and Oncology 10/27/24 Anselmo Gates MD [address] [facility] [address] [place] [address] Orthopaedic Surgery 10/27/24 Margaret Holman 11 [facility] 3rd [place] [address] Cardiology 10/27/24 Herberth Stokes MD 11 [facility] 3rd [place] [address] Gastroenterology 10/27/24 Pily Delaney Storage Battery ChargerFire Alarm Repairer 07/22/[address] [facility] 12/29/24 documented as of this encounter
--- OUTSIDE RECORDS SUMMARY | 2025-01-30 16:52 | XMS_ITS | Encounter Summary ---
Author Organization [employer] Address 75 [facility] 7t [place] [address] Care Team Providers Care Saw Grinder Name Role Phone Shereen Latham MD Primary Care Provider [phone] Nupur Bullock PharmD Unavailable Sury Benitez Unavailable [phone] Nirali Madrid OD Unavailable Li Grande MD Unavailable [phone] Anselmo Gates MD Unavailable Margaret Holman Unavailable Herberth Stokes MD Unavailable [phone] Reason for Visit * Reason Comments Med Refill Encounter Details Date Type Department Care Team (Late st Contact Info) Description 01/17/2025 Refill [facility] CHC MED & PEDS [address] [place], [place] [phone] Shereen Latham MD 230 [place] [address] Pain Social History Tobacco Use Types Packs/Day [...] is your housing situation today? I have frizt jaimes 12/29/[address] you [...] Description 02/13/2025 2:00 PM EDT Clinical Support [facility] DIABETES/NUTRITION 230 [place] [address] [place] [address] 02/17/2025 2:30 PM EDT Office Visit [facility] ADULT DENTAL [address] [place] [address] Paz-Connor, Isa, DDS [address] [place] [address] 03/29/2025 2:00 PM EDT Office Visit [facility] ADULT DENTAL 230 [place] [address] Heidi, Jenny 230 [place] [address] documented as of this encounter Visit Diagnoses Diagnosis Pain Generalized pain documented in this encounter Additional Health Concerns Assessment Noted Time PHQ-9 Depression Total Score: 22 025 10:17 AM EST documented as of this encounter Care Teams Saw Grinder Relationship Specialty Start Date End Date Shereen Latham MD 230 [place] [address] PCP - General Family Medicine 11/02/18 Nupur Bullock, CharleneD 230 [place] [address] Pharmacist Internal Medicine 08/09/24 Sury Benitez [address] [place] [address] Dr [facility] 103 [place] [address] Pulmonary Disease 09/27/24 Nirali Madrid OD [address] [place] [address] Optometry 10/27/24 Li Grande MD [address] [place] [address] Hematology and Oncology 10/27/24 Anselmo Gates MD [address] [facility] [place] [address] Orthopaedic Surgery 10/27/24 Margaret Holman [address] [place] [address] Cardiology 10/27/24 Herberth Stokes MD 11 [facility] 3rd [place] [address] Gastroenterology 10/27/24 Pily Delaney Manager MaritimeInspector Fuel Hose 07/22/24 Elie Vicky [facility] Psychology 12/29/24 documented as of this encounter
--- OUTSIDE RECORDS SUMMARY | 2025-01-30 16:52 | XMS_ITS | Encounter Summary ---
Author Organization [employer] Address 75 [facility] 7t [place] [address] Care Team Providers Care Ecommerce Project Manager Name Role Phone Shereen Latham MD Primary Care Provider [phone] Nupur Bullock PharmD Unavailable [phone] Sury Benitez Unavailable [phone] Nirali Madrid OD Unavailable [phone] Li Grande MD Unavailable [phone] Anselmo Gates MD Unavailable Margaret Holman Unavailable Herberth Stokes MD Unavailable [phone] Reason for Visit * Reason Comments Med Refill Encounter Details Date Type Department Care Team (Late st Contact Info) Description 06/21/2024 Refill [facility] CHC MED & PEDS [address] [place], [place] [phone] Shereen Latham MD 230 [place] [address] Mild intermittent asthma, unspecified whether complicated; Pain [...] Description 02/13/2025 2:00 PM EDT Clinical Support [facility] DIABETES/NUTRITION 230 [place] [address] Ernestina Esteban, RD 230 [place] [address] 02/17/2025 2:30 PM EDT Office Visit [facility] ADULT DENTAL 230 [place] [address] Paz-Connor, Isa, DDS 230 [place] [address] 03/29/2025 2:00 PM EDT Office Visit [facility] ADULT DENTAL [address] [place] [address] Heidi, Jenny 230 [place] [address] documented as of this encounter Visit Diagnoses Diagnosis Mild intermittent asthma, unspecified whether complicated Pain Generalized pain documented in this encounter Additional Health Concerns Assessment Noted Time PHQ-9 Depression Total Score: 13 024 4:53 PM EDT documented as of this encounter Care Teams Ecommerce Project Manager Relationship Specialty Start Date End Date Shereen Latham MD 230 [place] [address] PCP - General Family Medicine 11/02/18 Nupur Bullock PharmD [address] [place] [address] Pharmacist Internal Medicine 08/09/24 Sury Benitez [address] [place] [address] [place] [address] Pulmonary Disease 09/27/24 Nirali Madrid OD [address] [place] [address] Optometry 10/27/24 Li Grande MD [address] [place] [address] Hematology and Oncology 10/27/24 Anselmo Gates MD [address] [place] [address] Orthopaedic Surgery 10/27/24 Margaret Holman [address] [place] [address] Cardiology 10/27/24 Herberth Stokes MD [address] [place] [address] Gastroenterology 10/27/24 Pily Delaney On Site Construction SuperintendentHeel Former 07/22/24 Elie Vicky [facility] Psychology 12/29/24 documented as of this encounter
--- OUTSIDE RECORDS SUMMARY | 2025-01-30 16:52 | XMS_ITS | Encounter Summary ---
Author Organization [employer] Address 75 [facility] 7t [place] [address] Care Team Providers Care Sanding Supervisor Name Role Phone Shereen Latham MD Primary Care Provider [phone] Nupur Bullock PharmD Unavailable Sury Benitez Unavailable [phone] Nirali Madrid OD Unavailable iL Grande MD Unavailable [phone] Anselmo Gates MD Unavailable Margaret Holman Unavailable Herberth Stokes MD Unavailable [phone] Encounter Details Date Type Department Care Team (Late st Contact Info) Description 10/22/2023 Orders Only [facility] MEDICINE [address] [place], [place] [phone] Shereen Latham MD 230 [place], [place] [phone] Vitamin D deficiency Social History Tobacco Use [...] Description 02/13/2025 2:00 PM EDT Clinical Support [facility] DIABETES/NUTRITION 230 [place] [address] Ernestina Esteban, KATE 230 [place] [address] 02/17/2025 2:30 PM EDT Office Visit [facility] ADULT DENTAL 230 [place] [address] Isa De La Rosa, DDS 230 [place] [address] 03/29/2025 2:00 PM EDT Office Visit [facility] ADULT DENTAL 230 [place] [address] Jenny Gordon 230 [place] [address] documented as of this encounter Visit Diagnoses Diagnosis Vitamin D deficiency documented in this encounter Additional Health Concerns Assessment Noted Time PHQ-9 Depression Total Score: 21 023 10:42 AM EST documented as of this encounter Care Teams Sanding Supervisor Relationship Specialty Start Date End Date Shereen Latham MD 230 [place] [address] PCP - General Family Medicine 11/02/18 Nupur Bullock, CharleneD 230 [place] [address] Pharmacist Internal Medicine 08/09/24 Sury Benitez [address] [place] [address] Pulmonary Disease 09/27/24 Nirali Madrid OD [address] [place] [address] Optometry 10/27/24 Li Grande MD [address] [place] [address] Hematology and Oncology 10/27/24 Anselmo Gates MD 10 [facility] 203 [place] [address] Orthopaedic Surgery 10/27/24 Margaret Holman 11 [facility] 3rd [place] [address] Cardiology 10/27/24 Herberth Stokes MD 11 [facility] 3rd [place] [address] Gastroenterology 10/27/24 Pily Delaney Retail Interior DesignerCertified Green Building Engineer 07/22/24 Elie Vicky [facility] 12/29/24 documented as of this encounter
--- OUTSIDE RECORDS SUMMARY | 2025-01-30 16:52 | XMS_ITS | Encounter Summary ---
Author Organization [employer] Address 75 [facility] 7t [place] [address] Care Team Providers Care Microeconomics Professor Name Role Phone Shereen Latham MD Primary Care Provider [phone] Nupur Bullock PharmD Unavailable Sury Benitez Unavailable [phone] Nirali Madrid OD Unavailable Li Grande MD Unavailable [phone] Anselmo Gates MD Unavailable Margaret Holman Unavailable Herberth Stokes MD Unavailable [phone] Encounter Details Date Type Department Care Team (Late st Contact Info) Description 05/02/2024 Orders Only [facility] MEDICINE [address] [place], [place] [phone] Shereen Latham MD 230 [place], [place] [phone] Gout, unspecified cause, unspecified chronicity, unspecified site [...] Description 02/13/2025 2:00 PM EDT Clinical Support [facility] DIABETES/NUTRITION 230 [place] [address] [place] [address] 02/17/2025 2:30 PM EDT Office Visit [facility] ADULT DENTAL [address] [place] [address] Paz-Connor, Isa, DDS 230 [place] [address] 03/29/2025 2:00 PM EDT Office Visit [facility] ADULT DENTAL [address] [place] [address] Jeramie Gordonaris 230 [place] [address] documented as of this encounter Visit Diagnoses Diagnosis Gout, unspecified cause, unspecified chronicity, unspecified site- Primary documented in this encounter Additional Health Concerns Assessment Noted Time PHQ-9 Depression Total Score: 23 024 1:45 PM EDT documented as of this encounter Care Teams Microeconomics Professor Relationship Specialty Start Date End Date Shereen Latham MD 230 [place] [address] PCP - General Family Medicine 11/02/18 Nupur Bullock, CharleneD 230 [place] [address] Pharmacist Internal Medicine 08/09/24 Sury Benitez [address] [place] [address] Dr [facility] 103 [place] [address] Pulmonary Disease 09/27/24 Nirali Madrid OD [address] [place] [address] Optometry 10/27/24 Li Grande MD [address] [place] [address] Hematology and Oncology 10/27/24 Anselmo Gates MD [address] [place] [address] Orthopaedic Surgery 10/27/24 Margaret Holman [address] 3rd Floor [place] [address] Cardiology 10/27/24 Herberth Stokes MD 11 [facility] 3rd [place] [address] Gastroenterology 10/27/24 Pily Delaney Terminal Computer OperatorApplication Integrator 07/22/24 Elie Vicky [facility] Psychology 12/29/24 documented as of this encounter
--- OUTSIDE RECORDS SUMMARY | 2025-01-30 16:53 | XMS_ITS | Encounter Summary ---
Author Organization [employer] Address [address] [facility] 7t [place] [address] Care Team Providers Care Teenage Babysitter Name Role Phone Shereen Latham MD Primary Care Provider [phone] Nupur Bullock PharmD Unavailable Sury Benitez Unavailable [phone] Nirali Madrid OD Unavailable Li Grande MD Unavailable [phone] Anselmo Gates MD Unavailable Margaret Holman Unavailable Herberth Stokes MD Unavailable [phone] Encounter Details Date Type Department Care Team (Late st Contact Info) Description 01/27/2025 Orders Only [facility] MEDICINE [address] [place], [place] [phone] Shereen Latham MD [address] [place], [place] [phone] Hypomagnesemia (Primary Dx) Social History Tobacco Use Types [...] Description 02/13/2025 2:00 PM EDT Clinical Support [facility] DIABETES/NUTRITION [address] [place] [address] [place] [address] 02/17/2025 2:30 PM EDT Office Visit [facility] ADULT DENTAL [address] [place] [address] Paz-Connor, Isa, DDS [address] [place] [address] 03/29/2025 2:00 PM EDT Office Visit [facility] ADULT DENTAL [address] [place] [address] Jenny Gordon [address] [place] [address] Scheduled Orders Name Type Priority Associated Diagnoses Orde r Schedule Magnesium Lab Routine Hypomagnesemia Expected: 01/27/2025, Expires: 01/27/2026 documented as of this encounter Visit Diagnoses Diagnosis Hypomagnesemia- Primary Disorders of magnesium metabolism documented in this encounter Additional Health Concerns Assessment Noted Time PHQ-9 Depression Total Score: 22 025 10:17 AM EST documented as of this encounter Care Teams Teenage Babysitter Relationship Specialty Start Date End Date Shereen Latham MD [address] [place] [address] PCP - General Family Medicine 11/02/18 Nupur Bullock PharmD [address] [place] [address] Pharmacist Internal Medicine 08/09/24 Sury Benitez [address] [place] [address] [address] [place] [address] Pulmonary Disease 09/27/24 Nirali Madrid, SUSAN [address] [place] [address] Optometry 10/27/24 Li Grande MD [address] [place] [address] Hematology and Oncology 10/27/24 Anselmo Gates MD [address] [place] [address] Drive [address] [place] [address] Orthopaedic Surgery 10/27/24 Margaret Holman [address] 3rd [place] [address] Cardiology 10/27/24 Herberth Stokes MD [address] [place] [address] Gastroenterology 10/27/24 Pily Delaney Oceanographer PhysicalMaterials Handler 07/22/24 Elie Vicky [facility] Psychology 12/29/24 documented as of this encounter
--- OUTSIDE RECORDS SUMMARY | 2025-01-30 16:53 | XMS_ITS | Encounter Summary ---
Author Organization [employer] Address 75 [facility] 7t [place] [address] Care Team Providers Care Mirror Framer Name Role Phone Shereen Latham MD Primary Care Provider Nupur Bullock PharmD Unavailable [phone] Sury Benitez Unavailable [phone] Nirali Madrid OD Unavailable Li Grande MD Unavailable [phone] Anselmo Gates MD Unavailable Margaret Holman Unavailable Herberth Stokes MD Unavailable [phone] Reason for Referral * Imaging (Routine) - Authorized Specialty Diagnoses / Procedures Referred By Walter nelson Referred To Contact Radiology Diagnoses History of right breast cancer Procedures BI Mammogram Diagnostic Tomosynthesis Bilateral Shereen Latham MD [address] [place] [address] Phone: tel: fax: [facility] [address] [place] [address] Phone: tel: fax: Referral ID Status Reason Start Date Expiration Date V isits Requested Visits Authorized [id number] Authorized 01/27/2025 01/27/2026 1 1 Encounter Details Date Type Department Care Team (Late st Contact Info) Description 01/27/2025 Orders Only [facility] [place] [address] Shereen Latham MD [address] [place] [address] History of right breast cancer (Primary Dx) Social History Tobacco Use Types [...] Description 02/13/2025 2:00 PM EDT Clinical Support [facility] DIABETES/NUTRITION [address] [place] [address] Ernestina Esteban, RD [address] [place] [address] 02/17/2025 2:30 PM EDT Office Visit [facility] ADULT DENTAL [address] [place] [address] Paz-Connor, Isa, DDS [address] [place] [address] 03/29/2025 2:00 PM EDT Office Visit [facility] ADULT DENTAL [address] [place] [address] Heidi, Jenny [address] [place] [address] Scheduled Orders Name Type Priority Associated Diagnoses Orde r Schedule BI Mammogram Diagnostic Tomosynthesis Bilateral Imaging Routine History of right breast cancer Expected: 01/27/2025, Expires: 03/29/2026 documented as of this encounter Visit Diagnoses Diagnosis History of right breast cancer- Primary documented in this encounter Additional Health Concerns Assessment Noted Time PHQ-9 Depression Total Score: 22 025 10:17 AM EST documented as of this encounter Care Teams Mirror Framer Relationship Specialty Start Date End Date Shereen Latham MD [address] [place] [address] PCP - General Family Medicine 11/02/18 Nupur Bullock, Pushpa [address] [place] [address] Pharmacist Internal Medicine 08/09/24 Sury Benitez [address] [place] [address] Dr [address] [place] [address] Pulmonary Disease 09/27/24 Nirali Madrid OD [address] [place] [address] Optometry 10/27/24 Li Graned MD [address] [place] [address] Hematology and Oncology 10/27/24 Anselmo Gates MD [address] [facility] [address] [place] [address] Orthopaedic Surgery 10/27/24 Margaret Holman [address] [facility] 3rd [place] [address] Cardiology 10/27/24 Herberth Stokes MD [address] [facility] 3rd [place] [address] Gastroenterology 10/27/24 Pily Delaney Mold CheckerSteward/[employer] Dining Car 07/22/24 Elie Vicky [facility] 12/29/24 documented as of this encounter
--- OUTSIDE RECORDS SUMMARY | 2025-01-30 16:53 | XMS_ITS | Encounter Summary ---
Author Organization [employer] Address 75 [facility] 7t [place] [address] Care Team Providers Care Citrus Fruit Packer Name Role Phone Shereen Latham MD Primary Care Provider [phone] Nupur Bullock PharmD Unavailable Sury Benitez Unavailable [phone] Nirali Madrid OD Unavailable Li Grande MD Unavailable [phone] Anselmo Gates MD Unavailable Margaret Holman Unavailable Herberth Stokes MD Unavailable [phone] Reason for Visit * Reason Onset Date Comments Medication Question 08/25/2024 Encounter Details Date Type Department Care Team (Late st Contact Info) Description 08/25/2024 Telephone [facility] MEDICINE [address] [place], [place] [phone] Shereen Latham MD [address] [place], [place] [phone] Medication Question Social History Tobacco Use Types [...] any questions you can contact pt at [phone]. documented in this encounter Plan of Treatment Upcoming Encounters Date Type Department Care Team (Late st Contact Info) Description 02/13/2025 2:00 PM EDT Clinical Support [facility] DIABETES/NUTRITION [address] [place] [address] Ernestina Esteban, RD [address] [place] [address] 02/17/2025 2:30 PM EDT Office Visit [facility] ADULT DENTAL [address] [place] [address] Paz-Connor, Isa, DDS [address] [place] [address] 03/29/2025 2:00 PM EDT Office Visit [facility] ADULT DENTAL [address] [place] [address] Heidi, Jenny [address] [place] [address] documented as of this encounter Visit Diagnoses Not on filedocumented in this encounter Additional Health Concerns Assessment Noted Time PHQ-9 Depression Total Score: 13 024 4:53 PM EDT documented as of this encounter Care Teams Citrus Fruit Packer Relationship Specialty Start Date End Date Shereen Latham MD [address] [place] [address] PCP - General Family Medicine 11/02/18 Nupur Bullock, CharleneD [address] [place] [address] Pharmacist Internal Medicine 08/09/24 Sury Benitez [address] [place] [address] [place] [address] Pulmonary Disease 09/27/24 Nirali Madrid OD [address] [place] [address] Optometry 10/27/24 Li Grande MD [address] [place] [address] Hematology and Oncology 10/27/24 Anselmo Gates MD [address] [place] [address] Orthopaedic Surgery 10/27/24 Margaret Holman [address] 3rd [place] [address] Cardiology 10/27/24 Herberth Stokes MD [address] [place] [address] Gastroenterology 10/27/24 Pily Delaney NephrologistFoam Cutting Supervisor 07/22/24 Elie Vicky [facility] 12/29/24 documented as of this encounter
--- OUTSIDE RECORDS SUMMARY | 2025-01-30 16:53 | XMS_ITS | Clinical Summary ---
Author Organization [employer] Address [address] [facility] [address] [place] [address] Care Team Providers Care Local Flatbed Driver Name Role Phone Shereen Latham MD Primary Care Provider [phone] Nupur Bullock PharmD Unavailable Sury Benitez Unavailable [phone] JuliusNirali castellanos OD Unavailable [phone] Li Grande MD Unavailable [phone] Anselmo Gates MD Unavailable Margaret Holman Unavailable Herberth Stokes MD Unavailable [phone] Allergies Active Allergy Reactions Criticality Noted [...] 90 tablet 1 07/07/20 24 025 Discontinued losartan (Cozaar) 25 MG tabletIndicatio ns:Benign essential [...] eorder (will not trigger notification to Pharmacy)) Active Problems Problem Noted Date Diagnosed Date Gout 07/13/2024 Overview (12/29/2024): Lab Results Component Value Date URICACID 5.8 (H) 12/29/2024 URICACID 5.9 (H) 08/30/2024 URICACID 5.4 06/16/2024 URICACID 7.9 (H) 04/25/2024 -Pt initially treated for gout in R 04/21/24 with uric acid 7.9 -Seen by electric truck driver Dr. Bernstein 05/11/24 or evaluation of acute gout affecting left foot. -Pt admitted 07/25/24-07/2524 for swelling, pain, and warmth in the right knee. Patient had a low fever (100.3 F) and elevated WBC (35473 cells/uL), CRP, and ESR. Orthopedic surgery consulted [...] reach serum uric acid level <6 mg/dL(2020 [place] [employer] guideline for the management [...] 04/21/24 with uric acid 7.9 -Seen by electric truck driver Dr. Bernstein 05/11/24 or evaluation of acute gout affecting left foot. -Pt admitted 07/25/24-07/2524 for swelling, pain, and warmth in the right knee. Patient had a low fever (100.3 F) and elevated WBC (15407 cells/uL), CRP, and ESR. Orthopedic surgery consulted [...] reach serum uric acid level <6 mg/dL(2020 [place] [employer] guideline for the management of gout: titrate allopurinol in 100 mg increments every 2 to 4 weeks to achieve the desired serum uric acid level, doses greater than 300 mg/day are often needed to reach desired uric acid target). Assessment & Plan (10/27/2024 12:14 PM EST): >>ASSESSMENT AND PLAN FOR GOUT WRITTEN ON 08/24/2024 9:41 AM BY JOLIE Shelley TM on 08/16/24 who recommended assessing patient's uric acid level and titrate allopurinol if needed to reach serum uric acid level <6 mg/dL(2020 [place] [employer] guideline for the management [...] ON 08/24/2024 9:45 AM BY JOLIE PA [facility] (07/25/2024 - 07/27/2024) Patient presented with swelling, pain, and warmth in the right knee. Patient had a low fever (100.3 F) and elevated WBC (05449 cells/uL), CRP, and ESR. Orthopedic surgery consulted [...] by mouth once daily for 5 days. [facility] (08/07/2024) Patient presented for right knee [...] of breath) 06/29/2024 Overview (12/29/2024): -Followed by [facility] Pulmonology with Sury Benitez NP -02/2024 RAST [...] Plan (12/29/2024 11:03 AM EST): -Followed by [facility] Pulmonology with Sury Benitez NP -02/2024 RAST [...] if needed. -pt reports she saw her general machine operator and is continuing management with them. . Assessment & Plan (07/13/2024 2:15 PM EDT): -referred to pulmonology 06/29/24 -Pt reports she has appt to see general machine operator 08/01/24 Assessment & Plan (06/29/2024 4:49 PM EDT): -referred to pulmonology 06/29/24 (HFpEF) heart failure with preserved ejection fr action 06/29/2024 Overview (01/24/2025): >>OVERVIEW FOR HISTORY OF CHRONIC CHF WRITTEN [...] again to get stress test scheduled 12/29/24. Now scheduled for March 2025 -Note from Margaret Holman 01/18/25 reviewed Assessment & Plan (12/29/2024 10:27 AM EST): [...] Complex care coordination 01/11/2024 Overview (01/11/2024): -Has CLINICAL PRODUCT MANAGER services with [facility] -She is applying [facility] 01/11/2024 -In our C3 complex care management program -referred to [facility] on 01/04/2024 -Messaged sent to dog day care attendant for assistance in care visits Assessment & Plan (12/29/2024 10:21 AM EST): -Has CLINICAL PRODUCT MANAGER services with [facility] -She is applying [facility] 01/11/2024 -In our C3 complex care management program -referred to CB on 01/04/2024 -Messaged sent to C3 dog day care attendant for assistance in care visits Assessment & Plan (08/24/2024 9:19 AM EDT): -Has CLINICAL PRODUCT MANAGER services with [facility] -She is applying [facility] 01/11/2024 -In our complex care management program -referred to CB on 01/04/2024 -Messaged sent to C3 dog day care attendant for assistance in care visits Assessment & Plan (06/29/2024 4:06 PM EDT): -Has CLINICAL PRODUCT MANAGER services with [facility] -Leonora is applying [facility] 01/11/2024 -In our complex care management program -referred to [facility] on 01/04/2024 -Messaged sent to C3 dog day care attendant for assistance in care visits Assessment & Plan (01/11/2024 9:30 AM EDT): -Has CLINICAL PRODUCT MANAGER services with [facility] -Leonora is applying [facility] 01/11/2024 -In our complex care management program -referred to [facility] on 01/04/2024 -Messaged sent to C3 dog day care attendant for assistance in care visits Generalized anxiety [...] Pain Management team and will reconnect with [facility]. Information given to patient. PLAN: (check all that apply) Behavioral Health Integration Plan Self- referred to CB/N per patient's preference. Assessment & Plan (11/24/2023 [...] support in scheduling an Intake appt with [facility]. Tubular adenoma of colon 09/07/2023 Overview (12/29/2024): [...] for transfusion - Iron infusions ordered by [employer] DR. Grande - She recieved two sessions [...] for transfusion - Iron infusions ordered by [employer] DR. Grande - She recieved two sessions [...] for transfusion - Iron infusions ordered by [employer] DR. Grande - She recieved two sessions [...] for transfusion - Iron infusions ordered by [employer] DR. Grande - She recieved two sessions [...] lynnelulu back by: Janett Ortega Person calling: [employer] Date:06/16/24 Time: 1218 Saw CDTM on 08/16/24 [...] pedro back by: Janett Ortega Person calling: [employer] Date:06/16/24 Time: 1218 Assessment & Plan (07/29/2023 4:34 PM EDT): Received magnesium IV in ER -Dose increased to TID - Recheck in 2 weeks Other specified health status 07/20/2023 Overview (07/11/2024): -next physical exam due after 06/29/25 -eye care facilitated by [facility] -dental home is [facility] -health care proxy filed 06/29/24 Assessment & Plan (06/29/2024 4:03 PM EDT): -next physical exam due after 06/29/25 -eye care facilitated by [facility] -dental home is [facility] -health care proxy given and filed [...] on scene within 10 minutes, transfer completed [facility] called with expect Chronic GERD 05/26/2023 [...] had ultrasound sound for abdominal pain at [facility] revealing diffusely echogenic parenchyma with focal [...] had ultrasound sound for abdominal pain at [facility] revealing diffusely echogenic parenchyma with focal [...] had ultrasound sound for abdominal pain at [facility] revealing diffusely echogenic parenchyma with focal [...] had ultrasound sound for abdominal pain at [facility] revealing diffusely echogenic parenchyma with focal [...] had ultrasound sound for abdominal pain at [facility] revealing diffusely echogenic parenchyma with focal [...] had ultrasound sound for abdominal pain at [facility]. Ultrasound showed diffusely echogenic parenchyma with focal [...] referred to [facility] for Support and Recovery but has not [...] referred to [facility] for Support and Recovery but has not [...] [facility] has [...] received phenobarb improved her symptoms, patient declined chief lifestyle officer help to place her in rehab, is [...] received phenobarb improved her symptoms, patient declined chief lifestyle officer help to place her in rehab, is [...] type, invasive tumor 2.2 cm ER positive, IA positive, HER-2/RON negative, two sentinel nodes negative. -S/[facility] Oct, completed 4 [...] type, invasive tumor 2.2 cm ER positive, IA positive, HER-2/RON negative, two sentinel nodes negative. -S/p RIGHT [facility] started Oct, completed 4 [...] type, invasive tumor 2.2 cm ER positive, IA positive, HER-2/RON negative, two sentinel nodes negative. -S/p RIGHT [facility] with [facility] started Oct, completed 4 [...] type, invasive tumor 2.2 cm ER positive, IA positive, HER-2/RON negative, two sentinel nodes negative. -S/p RIGHT [facility]aste[facility] with [facility] started Oct, completed 4 [...] type, invasive tumor 2.2 cm ER positive, IA positive, HER-2/RON negative, two sentinel nodes negative. -S/p RIGHT maste[facility] with [facility] started Oct, completed 4 [...] type, invasive tumor 2.2 cm ER positive, IA positive, HER-2/RON negative, two sentinel nodes negative. -S/p RIGHT mastectomy with [facility] started Oct, completed 4 [...] type, invasive tumor 2.2 cm ER positive, IA positive, HER-2/RON negative, two sentinel nodes negative. -S/p RIGHT mastectomy with [facility]an [facility] started Oct, completed 4 [...] type, invasive tumor 2.2 cm ER positive, IA positive, HER-2/RON negative, two sentinel nodes negative. -S/p RIGHT mastectomy with sent[facility]an [facility] started Oct, completed 4 [...] type, invasive tumor 2.2 cm ER positive, IA positive, HER-2/RON negative, two sentinel nodes negative. -S/p RIGHT mastectomy with sent[facility]an [facility] started Oct, completed 4 [...] type, invasive tumor 2.2 cm ER positive, IA positive, HER-2/RON negative, two sentinel nodes negative. -S/p RIGHT mastectomy with [facility]an [facility] started Oct, completed 4 [...] Overview (06/28/2024): Lab Results Component Value Date [id number] 58.3 06/16/2024 [id number] 106.4 01/04/2024 [id number] 76.8 09/22/2023 Assessment & Plan (06/29/2024 3:39 PM EDT): Lab Results Component Value Date [id number] 58.3 06/16/2024 [id number] 106.4 01/04/2024 [id number] 76.8 09/22/2023 Assessment & Plan (12/14/2023 12:09 PM EST): Lab Results Component Value Date [id number] 76.8 09/22/2023 -Labs ordered for further evaluation: Vitmain D, 25-hydroxy, Total, Immunoassay. 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 Per Dr. Krish Loomis's note from [facility] TELEVISION PARTS TESTER, pt was due for repeat colposcopy in [...] CIN2-3. Per Dr. Krish Loomis's note from [facility] TELEVISION PARTS TESTER, pt was due for repeat colposcopy in [...] CIN2-3. Per Dr. Krish Loomis's note from [facility] TELEVISION PARTS TESTER, pt was due for repeat colposcopy in [...] CIN2-3. Per Dr. Krish Loomis's note from [facility], pt was due for repeat colposcopy [...] Health Integration Plan Internal Follow up with [facility] Patient Self Plan Patient to utilize skills provided in intervention , Patient to reach out to [facility] team as needed, Patient to reach out to [facility] as needed, and will contact [facility] Intake number to connect with long-term OP services, and psychiatrist. Rule Out Diagnoses: [...] as pharmacomtherapy, [facility] smoking cessation group, and [facility] pharmacy smoking cessation clinic Discussed USPSTF recommends [...] as pharmacomtherapy, [facility] smoking cessation group, and [facility] pharmacy smoking cessation clinic Discussed USPSTF recommends [...] as pharmacomtherapy, [facility] smoking cessation group, and [facility] pharmacy smoking cessation clinic Discussed USPSTF recommends [...] as pharmacomtherapy, [facility] smoking cessation group, and [facility] pharmacy smoking cessation clinic Discussed USPSTF recommends [...] as pharmacomtherapy, [facility] smoking cessation group, and [facility] pharmacy smoking cessation clinic Discussed USPSTF recommends [...] flare 05/11/2024 12/29/2024 Overview (07/13/2024): Seen by electric truck driver Dr. Bernstein 05/11/24 or evaluation of acute [...] Plan (07/13/2024 2:21 PM EDT): Seen by electric truck driver Dr. Bernstein 05/11/24 or evaluation of acute [...] EDT): Patient requesting a Physical for her CLINICAL PRODUCT MANAGER hours to be re-instated. On exam today, her vitals are stable and her exam seems unchanged from previous one. Work up in progress for her c/o bilateral foot pain Hospital discharge follow-up 06/18/2023 07/20/2023 Assessment & Plan (07/14/2023 10:23 AM EDT): Patient here for a HDF. She was admitted to [facility] [place] 06[facility]05[facility] . She presented with concerns [...] Hyperaldosteronism 11/16/2022 3 Overview (11/16/2022): Seen by [facility] 04/03/2022. Initially seen 12/2021 for hyperaldosteronism. Labs [facility] 10/2021 aldosterone 8, plasma renin 0.11, aldosterone/renin 72.7. She was likely on spironolactone and lisinopril at time of labs. Advise no spironolactone for 6 weeks and recheck renin aldosterone levels with renal panel and magnesium in early childhood educator aide. Assessment & Plan (11/16/2022 10:55 AM EST): Seen by [facility] 04/03/2022. Initially seen 12/2021 for hyperaldosteronism. Labs [facility] 10/2021 aldosterone 8, plasma renin 0.11, aldosterone/renin 72.7. She was likely on spironolactone and lisinopril at time of labs. Advise no spironolactone for 6 weeks and recheck renin aldosterone levels with renal panel and magnesium in early childhood educator aide. Anxiety 04/19/2014 01/28/2024 Encounters Date Type Department Care Team Description 01/27/2025 Orders Only [facility] MEDICINE [address] [place] [address] Shereen Latham MD History of right breast cancer (Primary Dx) 01/27/2025 Orders Only [facility] MEDICINE [address] [place] [address] Shereen Latham MD Hypomagnesemia (Primary Dx) 01/24/2025 1:00 PM EDT Clinical Support [facility] DIABETES/NUTRITIO N [address] [place] [address] History of chronic CHF (Primary Dx) 01/24/2025 Telephone [facility] MEDICINE [address] [place] [address] Shereen Latham MD Medication Question 01/24/2025 Travel 01/19/2025 Orders Only [address] [address] Stacey Khan MD Women's annual routine gynecological examination (Primary Dx) 01/19/2025 Orders Only [address] [address] Stacey Khan MD Breast pain, left (Primary Dx) 01/17/2025 3:00 PM EDT Nutrition [facility] DIABETES/NUTRITIO N [address] [place] [address] History of chronic CHF 01/17/2025 Refill [facility] MED & PEDS [address] [place] [address] Shereen Latham MD Pain 01/17/2025 Travel 01/17/2025 Refill [facility] PEDS [address] [place] [address] Mayda Rush MD Pain 01/16/2025 Telephone [facility] MEDICINE [address] [place] [address] Shereen Latham MD Appointment Request 01/13/2025 Population Health Risk Score [facility] Department [address] [place] [phone] Provider, Population Health Generic 01/12/2025 Refill [facility]S [address] [place] [address] Shereen Latham MD Benign essential hypertension 01/09/[address] [address] Shereen Latham MD Gastroesophageal reflux disease, unspecified whether esophagitis present; Vitamin D deficiency; Nasal congestion 01/03/[address] [address] Shereen Latham MD Referral 12/29/2024 10:30 AM EST Office Visit [address] [address] Shereen Latham MD History of right breast [...] coordination; Tubular adenoma of colon 12/29/[address] [address] Shereen Latham MD Results 12/29/2024 Orders Only [address] [address] Shereen Latham MD Gout, unspecified cause, unspecified chronicity, unspecified site 12/29/2024 Orders Only GENERIC EXTERNAL DATA DEPARTMENT Provider, Generic External Data 12/29/2024 Travel 12/22/[address] [address] Shereen Latham MD Durable Medical Equipment; chartprep 12/22/[address] [address] Shereen Latham MD Nurse Triage 12/21/2024 3:30 PM EST Telemedicine [address] [address] Nupur Bullock PharmD Preventative health care (Primary Dx) 12/21/2024 Travel 12/21/2024 Refill [facility] MED & PEDS [address] [place] [address] Shereen Latham MD Pain 12/20/2024 Orders Only [facility] External Provider, [facility] 12/14/2024 Travel 12/12/2024 Patient Outreach [facility] MEDICINE [address] [place] [phone] Shereen Latham MD Transition Of Care (Tcm) 12/10/2024 Orders Only GENERIC EXTERNAL DATA DEPARTMENT Provider, Generic External Data 12/09/[address] [address] Shereen Latham MD Nurse Triage 12/07/[address] [address] Shereen Latham MD ER Follow-up 12/06/2024 Orders Only GENERIC EXTERNAL DATA DEPARTMENT Provider, Generic External Data 12/03/2024 Travel 11/25/2024 Orders Only [address] [address] Shereen Latham MD Vaginal lesion (Primary Dx) 11/23/2024 3:30 PM EST Telemedicine [address] [address] Nupur Bullock PharmD Benign essential hypertension (Primary Dx) 11/23/[address] [address] Shereen Latham MD Referral 11/22/2024 Refill [facility] MED & PEDS [address] [place] [address] Shereen Latham MD Pain 11/22/2024 Patient Outreach [facility] MEDICINE [address] [place] [address] Shereen Latham MD Transition Of Care (Tcm) 11/18/2024 Telephone [facility] MED [facility] PEDS [address] [place] [address] Violetta Mackey MA Breast Cancer Screening 11/17/2024 2:40 PM EST Office Visit [facility] WALK-IN CENTER [address] [place] [phone] Shereen Latham MD Benign essential hypertension (Primary Dx); Depression with anxiety 11/17/2024 Travel 11/17/[address] [address] Shereen Latham MD Nurse Triage 2024 Travel 11/10/[address] [address] Shereen Latham MD Nurse Triage 11/10/[address] [address] Shereen Latham MD Benign essential hypertension 11/09/2024 11:30 AM EST Office Visit [address] [address] Shereen Latham MD Gout of foot, unspecified [...] [facility] [address] [place] [address] Laura Cifuentes MD 11/08/2024 Orders Only [address] [address] Shereen Latham MD Iron deficiency anemia, unspecified iron deficiency anemia type (Primary Dx) 11/01/2024 Patient Outreach [facility] MED [facility] PEDS [address] [place] [address] Shereen Latham MD Transition Of Care (Tcm) 11/01/[address] [address] Shereen Latham MD Results from Last 3 [...] EST Inhaled Oxygen Concentration - - Weight 90.4 kg (199 lb 3.2 oz) 01/26/2025 10:19 AM EDT Height 170.2 cm (5' 7 ) 01/26/2025 10:19 AM EDT Body Mass Index 31.2 01/26/2025 10:19 AM EDT Plan of Treatment Upcoming Encounters Date Type Department Care Team (Late st Contact Info) Description 02/13/2025 2:00 PM EDT Clinical Support [facility] DIABETES/NUTRITION [address] [place], [place] [phone] Ernestina Esteban [address], [place] [phone] 02/17/2025 2:30 PM EDT Office Visit [facility] ADULT DENTAL [address] [place] [address] Isa De La Rosa DDS [address], [place] [phone] 03/29/2025 2:00 PM EDT Office Visit [facility] ADULT DENTAL [address] [place] [address] Jenny Gordon [address] [place] [address] Health Maintenance Due Date Last Done Comments [...] DNA/Cologuard 08/27/2026 08/27/2023 Lipid Panel 12/29/2029 12/29/2024, 06/02, 09/22/2023, Additional history exists RSV Patients and Patients Aged 60 years or older (1 - 1-dose 75+ series) 2048 IPV Vaccines Completed 07/05/1981, 0 04/1980, 08/24/1978, Additional history exists HPV/Cotest Discontinued [...] Procedure Name Priority Date/Time Associated Diagnosis Comments HIGH SENSITIVITY TROPONIN I Routine 01/19/2025 4:33 PM EDT Women's annual routine gynecological examination B TYPE NATRIURETIC PEPTIDE (BNP) Routine 01/19/2025 4:33 PM EDT Women's annual routine gynecological examination D DIMER HIGH SENSITIVITY Routine 01/19/2025 4:33 [...] MAGNESIUM Routine 11/08/2024 2:48 PM EST Hypomagnesemia PROPHYLAXIS - ADULT Routine 09/28/2024 9 :00 [...] RADIOGRAPHIC IMAGES Routine 07/06/2019 12:00 AM EDT [facility] HISTORICAL HPV MRNA E6/E7 Routine 08/12/2018 10:57 AM EDT from Last 3 Months or Most Recently Relevant to Health Maintenance Results * D Dimer High Sensitivity (01/19/2025 4:33 PM EDT) Pathologist [facility] D Dimer High Sensitivity <150 NG/ML [facility] Comment:D-DIMER HS REFERENCE RANGENote: Our [...] ORDERAB LES Final Result Performing Organization Address City/[facility] Co de Phone Number [facility] [address] [place] [phone] * High Sensitivity Troponin I (01/19/2025 4:33 PM EDT) Only the most recent of2 resultswithin the time period is included. Pathologist [facility] TROPONIN I HIGH SENSITIVITY 7.8 <3.5 - 17.0 ng/L [facility] Comment:The Henriquez high sens itivity Troponin-I results should beused in conjunction with other diagnostic information suchas ECG, clinical observations and information, and patientsymptoms to aid in the diagnosis of CO. 01/19/2025 4:33 PM EDT 01/19/2025 4:34 PM EDT us Generic External Data Provider LAB BLOOD ORDERAB LES Final Result [facility] [address] [place] [address] [phone] * B Type Natriuretic Peptide (BNP) (01/19/2025 4:33 PM EDT) Only the most recent of2 resultswithin the time period is included. [facility] B Type Natriuretic Peptide 22 <100 pg/mL [facility] 01/19/2025 4:33 PM EDT 01/19/2025 4:34 PM EDT us Generic External Data Provider LAB BLOOD ORDERAB LES Final Result Performing Organization Address [facility] Hospital/[facility] Co de Phone Number [facility] [address] [place] [address] [phone] * (ABNORMAL) CBC auto differential (12/29/2024 10:53 AM EST) Only the most recent of4 resultswithin the time period is included. [facility] White Blood Count 13.5(H) 4.8 - 10.8 X10*3/uL [facility] Red Blood Count 3.97(L) 4.20 - 5.50 X10*6/uL [facility] Hemoglobin 11.4(L) 12.0 - 16.0 g/dl [facility] Hematocrit 36.4(L) 37.0 - 47.0 % [facility] Mean Corpuscular Volume 91.7 80.0 - 98.0 fL [facility] Mean Corpuscular Hemoglobin 28.7 27.0 - 33.0 pg [facility] Mean Corpuscular HGB Conc 31.3 31.0 - 35.0 g/dl [facility] Red Cell Distribution Width 14.8 11.0 - 16.0 % [facility] Platelet Count 370 160 - 400 X10*3/uL [facility] Mean Platelet Volume 10.2 9.4 - 12.3 fL [facility] Neutrophils Percent Auto 70.1 45 - 73 % [facility] Imm Gran Pct Auto 1.8(H) 0.0 - 0.4 % [facility] Lymphocytes Percent Auto 18.9(L) 20 - 40 % [facility] Monocytes Percent Auto 7.8 2 - 11 % [facility] Eosinophils Percent Auto 0.7 0 - 4 % [facility] Basophils Percent Auto 0.7 0 - 2 % [facility] NRBC Pct Auto 0.0 0.0 - 0.2 /100WBC [facility] Neutrophils Absolute Auto 9.5(H) 2.0 - 8.3 x10*3/uL [facility] Imm Gran Abs Auto 0.25(H) 0.00 - 0.03 X10*3/uL [facility] Lymphocytes Absolute Auto 2.6 1.2 - 4.9 X10*3/uL [facility] Monocytes Absolute Auto 1.1 0.1 - 1.2 X10*3/uL [facility] Eosinophils Absolute Auto 0.1 0.0 - 0.4 X10*3/uL [facility] Basophils Absolute Auto 0.1 0.0 - 0.2 X10*3/uL [facility] NRBC Abs Auto 0.000 0.0 - 0.012 X10*3/uL [facility] 12/29/2024 10:5 3 AM EST 12/29/2024 1:06 PM EST us Generic External Data Provider LAB BLOOD ORDERAB LES Final Result [facility] [address] [place] [phone] * (ABNORMAL) Uric acid (12/29/2024 10:53 AM EST) Uric Acid 5.8(H) 2.4 - 5.7 mg/dL [facility] Blood Venous blood specimen / Unknown 12/29/2024 10:53 AM EST 12/29/2024 1:06 PM EST us Shereen Latham MD LAB BLOOD ORDERABLES Final Result Performing Organization Address City/[facility]/ZIP Co de Phone Number [facility] [address] [place] [address] [phone] * Magnesium (12/29/2024 10:53 AM EST) Only the most recent of3 resultswithin the time period is included. Magnesium 1.8 1.6 - 2.6 mg/dL [facility] Blood Venous blood specimen / Unknown 12/29/2024 10:53 AM EST 12/29/2024 1:06 PM EST Shereen Latham MD LAB BLOOD ORDERABLES Final Result Performing Organization Address [facility] Co de Phone Number [facility] [address] [place] [phone] * (ABNORMAL) Lipid Panel, Standard (12/29/2024 10:53 AM EST) Triglycerides 192(H) <150 mg/dL [facility] Comment:Desirable Triglyceri de: less than 150 mg/dLBorderline High Triglyceride 150-199 mg/dLHigh Triglyceride: 200-499 mg/dLVery High Triglyceride: greater than or equal to 5OO mg/dL Cholesterol 197 <200 mg/dL [facility] Comment:Desirable Cholestero l: less than 200 mg/dLBorderline High Cholesterol: 200-239 mg/dLHigh Cholesterol: greater than 239 mg/dL LDL Cholesterol Calculated 111(H) <100 mg/dL [facility] Comment:Desirable LDL: less than 100 mg/dLNear Optimal/Above Optimal LDL: 110- 129 mg/dLBorderline High LDL: 130-159 mg/dLHigh LDL: 160-189 mg/dLVery High LDL: greater than or equal to 190 mg/dL HDL Cholesterol 48 >40 mg/dL [facility] Comment:Desirable HDL: great er than 40 mg/dL Note: This HDL assay may give artificially low results in patients with liver disease. Blood Venous blood specimen / Unknown 12/29/2024 10:53 AM EST 12/29/2024 1:06 PM EST Shereen Latham MD LAB BLOOD ORDERABLES Final Result Performing Organization Address [facility] Co de Phone Number [facility] [address] [place] [phone] * (ABNORMAL) Basic Metabolic Panel (12/29/2024 10:53 AM EST) Sodium 139 135 - 145 mmol/L [facility] Potassium 4.1 3.3 - 5.1 mmol/L [facility] Chloride 105 96 - 108 mmol/L [facility] Carbon Dioxide 23 22 - 29 mmol/L [facility] Anion Gap 15 12 - 20 [facility] Urea Nitrogen (BUN) 32(H) 9 - 16 mg/dL [facility] Creatinine, Serum 0.91 0.5 - 1.4 mg/dL [facility] Estimated Glomerular Filt Rate >60 [facility] Comment:Chronic Kidney Disea se: Estimated GFR < 60 mL/min/1.62n8Vqkvph Kidney Disease: Estimated GFR < 15 mL/min/1.73m2 Glucose 161(H) 60 - 115 mg/dL [facility] Calcium 9.3 8.4 - 10.2 mg/dL [facility] Blood Venous blood specimen / Unknown 12/29/2024 10:53 AM EST 12/29/2024 1:06 PM EST Shereen Latham MD LAB BLOOD ORDERABLES Final Result Performing Organization Address City/[facility]/ZIP Co de Phone Number [facility] [address] [place] [phone] * XR Knee 1-2 Views Right (12/20/2024 7:45 AM EST) Anatomical Region Laterality Modality Lower Extremities, Knee Right Radiogra phic Imaging 12/20/2024 7:45 AM EST Narrative 12/20/2024 8:20 AM EST ? [facility] ?[address] ?[place] [address] ?XRay Report ? Signed ? Patient: Cast,Azra ?MR#: [id number] ?? 3774 ? : 1975 ?Acct:[id number] ? Age/Sex: 49 / F ?ADM Date: 12/20/24 ? Loc: HO.ED ? Attending Dr: ? Ordering Physician: Boby Dykes MD ?? Date of Service: 12/20/24 ?? Procedure(s): XR knee RT 2V ?? Accession Number(s): [id number] ? cc: Shereen Latham MD; Boby Dykes [...] DD/ 0745 ? TD/TT: 12/20/24 0751 ? Tank Charger: ? Procedure Note Gypsy Jonas - 12/20/[address] [address] XRay Report Signed Patient: Maged Cast#: [id number] : 1975Acct:[id number] Age/Sex: 49 / FADM Date: 12/20/24 Loc: HO.ED Attending Dr: Ordering Physician: Boby Dykes MD Date of Service: 12/20/24 Procedure(s): XR knee RT 2V Accession Number(s): [id number] cc: Shereen Latham MD; Boby Dykes MD [...] 12/20/24 0817 DD/ 0745 TD/TT: 12/20/24 0751 Tank Charger: [facility] External Provider IMG XR PROCEDURES Edited Result - Final * XR Chest 1 View (12/11/2024 12:34 AM EST) Anatomical Region Laterality Modality Chest Radiographic Celina ging 12/11/2024 12:3 4 AM EST Narrative 12/11/2024 12:37 AM EST ? [facility] ?[address] ?[place] [address] ?XRay Report ? Signed ? Patient: Cast,Azra ?MR#: [id number] ?? 3774 ? : 1975 ?Acct:[id number] ? Age/Sex: 49 / F ?ADM Date: 12/10/25 ? Loc: HO.ED ? Attending Dr: ? Ordering Physician: Sury Bustamante MD ?? Date of Service: 12/10/24 ?? Procedure(s): XR chest 1V ?? Accession Number(s): [id number] ? cc: Shereen Latham MD; Sury Bustamante MD ? CLINICAL HISTORY: chest pain cough ? 1 view chest x-ray ? Comparison: CR/IA - XR CHEST 2V - 10/31/24 17:50 [...] signed by Ashley Vazquez MD in OV> ?12/11/24 0036 ? DD/ 0034 ? TD/TT: 12/11/24 0034 ? Tank Charger: ? Procedure Note Gypsy Jonas - 12/11/[address] [address] XRay Report Signed Patient: Maged Cast#: [id number] : 1975Acct:[id number] Age/Sex: 49 / FADM Date: 12/10/24 Loc: .ED Attending Dr: Ordering Physician: Sury Bustamante MD Date of Service: 12/10/24 Procedure(s): XR chest 1V Accession Number(s): [id number] cc: Shereen Latham MD; Sury Bustamante MD CLINICAL HISTORY: chest pain cough 1 view chest x-ray Comparison: CR/IA - XR CHEST 2V - 10/31/24 17:50 EST Findings: No consolidation or effusion. Heart size is normal. No acute fracture. Right breast implant. IMPRESSION: 1. No acute cardiopulmonary findings. This document has been electronically signed by: Ashley Vazquez MD on 12/11/2024 00:34:57 Dictated By: Ashley Vazquez MD Signed By: <Electronically signed by Ashley Vazquez MD in OV> 12/11/246 DD/ TD/TT: 12/11/2433 Tank Charger: [facility] External Provider IMG XR PROCEDURES Final Result * SARS-CoV-2 RNA, Influenza A/B, and RSV RNA, Ql NAAT (12/10/2024 11:48 PM EST) Only the most recent of2 resultswithin the time period is included. Influenza A PCR NEGATIVE Negative [facility] Influenza B PCR NEGATIVE Negative [facility] Resp Syncy Virus RNA Qual PCR NEGATIVE Negative [facility] SARS COV2 PCR NEGATIVE Negative [facility] Comment:All test results mus t [...] use by authorized laboratories.Testing performed on the [employer] GeneXpert utilizingreal-time RT-PCR.All SARS CoV2 and positive influenza A/B results arereported to [facility]. 12/10/2024 11:4 8 PM EST 12/10/2024 11:53 PM EST Generic External Data Provider LAB MICROBIOLOGY - GENERAL ORDERABLES Final Result [facility] [address] [place] [phone] * (ABNORMAL) Comprehensive Metabolic Panel (12/10/2024 11:48 PM EST) Only the most recent of3 resultswithin the time period is included. Sodium 143 135 - 145 mmol/L [facility] Potassium 3.7 3.3 - 5.1 mmol/L [facility] Chloride 108 96 - 108 mmol/L [facility] Carbon Dioxide 23 22 - 29 mmol/L [facility] Anion Gap 16 12 - 20 [facility] Urea Nitrogen (BUN) 24(H) 9 - 16 mg/dL [facility] Creatinine, Serum 1.11 0.5 - 1.4 mg/dL [facility] Creatinine Clr Calc Pharmacy 69.3 [facility] Comment:Provided height and weight: 170.18 cm,90.7 kg.eGFR (calculated from the MDRD study equation) and eCrCl(calculated from the Cockcroft-Gault equation) are based ondifferent parameters and may not yield comparable results.If eCrCl result is absurd, please check patient'sheight/weight. Estimated Glomerular Filt Rate 52 [facility] Comment:Chronic Kidney Disea se: Estimated GFR < 60 mL/min/1.53j3Wvpxna Kidney Disease: Estimated GFR < 15 mL/min/1.73m2 Glucose 150(H) 60 - 115 mg/dL [facility] Calcium 9.3 8.4 - 10.2 mg/dL [facility] Bilirubin, Total 0.2 0.0 - 1.0 mg/dL [facility] Aspartate Amino Transferase 19 5 - 31 U/L [facility] Alanine Aminotransferase 14 0 - 31 U/L [facility] Total Protein 7.6 6.5 - 8.0 g/dL [facility] Albumin Level 4.0 3.5 - 5.0 g/dL [facility] Alkaline Phosphatase 87 39 - 117 U/L [facility] 12/10/2024 11:4 8 PM EST 12/10/2024 11:53 PM EST us Generic External Data Provider LAB BLOOD ORDERAB LES Final Result [facility] [address] [place] [phone] * CT Abdomen Pelvis w/ Contrast (12/06/2024 1:20 PM EST) Anatomical Region Laterality Modality Body, Pelvis, Abdomen Computed T omography 12/06/2024 1:20 PM EST Narrative 12/06/2024 2:00 PM EST ? [facility] ?[address] ?[place] [address] ? CT Scan Report ? Signed ? Patient: Cast,Azra ?MR#: [id number] ?? 3774 ? : 1975 ?Acct:[id number] ? Age/Sex: 49 / F ?ADM Date: 12/06/24 ? Loc: HO.ED ? Attending Dr: ? Ordering Physician: Leighann Ordonez DO ?? Date of Service: 12/06/24 ?? Procedure(s): CT abdomen pelvis w IV con ?? Accession Number(s): [id number] ? cc: Shereen Latham MD; Leighann Ordonez DO ? Report Number: ?? [id number]: Total DLP = ??712.00 mGy-cm ?? EXAMINATION: [...] DD/ 1320 ? TD/TT: 12/06/24 1333 ? Tank Charger: ? Procedure Note Sumi, Gypsy - 12/06/[address] [address] Scan Report Signed Patient: Maged Cast#: [id number] : 1975Acct:[id number] Age/Sex: 49 / FADM Date: 12/06/24 Loc: HO.ED Attending Dr: Ordering Physician: Leighann Ordonez DO Date of Service: 12/06/24 Procedure(s): CT abdomen pelvis w IV con Accession Number(s): [id number] cc: Shereen Latham MD; Leighann Ordonez DO Report Number: [id number]: Total DLP = 712.00 mGy-cm EXAMINATION: CT [...] 12/06/24 1358 DD/ 1320 TD/TT: 12/06/24 1333 Tank Charger: [facility] External Provider IMG CT PROCEDURES Final Result * Urinalysis w/reflex microscopic (12/06/2024 11:14 AM EST) Color Urine Yellow [facility] Appearance Urine Clear [facility] PH 6.0 5.0 - 9.0 [facility] Glucose Urine UA Negative Negative mg/dL [facility] Urine Blood Negative Negative [facility] Specific [place] - Urine 1.025 1.005 - 1.025 [facility] Urine Protein Negative Neg-Trace mg/dL [facility] Urine Ketones Negative Negative mg/dL [facility] Nitrite Urine Negative Negative [facility] Leukocyte Esterase Urine Negative Negative [facility] 12/06/2024 11:1 4 AM EST 12/06/2024 11:18 AM EST Narrative [facility] - 12/06/2024 11:22 AM EST Urine, Clean Catch Generic External Data Provider LAB URINE ORDERAB LES Final Result [facility] [address] [place] [phone] * Lipase (12/06/2024 9:42 AM EST) Lipase 50 8 - 78 U/L [facility] 12/06/2024 9:42 AM EST 12/06/2024 9:45 AM EST us Generic External Data Provider LAB BLOOD ORDERAB LES Final Result Performing Organization Address City/[facility]/ZIP Co de Phone Number [facility] [address] [place] [phone] * Iron And Total Iron Binding Capacity (11/08/2024 2:48 PM EST) Iron 66 30 - 160 mcg/dL [facility] Total Iron Binding Capacity 292 228 - 428 mcg/dL [facility] Percent Iron Saturation 23 15 - 50 % [facility] Unsaturated Iron Binding 226 ug/dL [facility] Blood Venous blood specimen / Unknown 11/08/2024 2:48 PM EST 11/08/2024 4:08 PM EST us Shereen Latham MD LAB BLOOD ORDERABLES Final Result Performing Organization Address [facility]/ZIP Co de Phone Number [facility] [address] [place] [phone] * Immunoglobulin E (11/08/2024 2:48 PM EST) Immunoglobulin E 17 <DB=171 kU/L [facility] Comment:THIS TEST WAS PERFOR MED AT:[employer] [address] [phone] BRINK MD 11/08/2024 2:48 PM EST 11/08/2024 4:08 PM EST us Generic External Data Provider LAB BLOOD ORDERAB LES Final Result [facility] [address] [place] [phone] * Ferritin (11/08/2024 2:48 PM EST) [facility] Ferritin 180 10 - 250 ng/mL [facility] Blood Venous blood specimen / Unknown 11/08/2024 2:48 PM EST 11/08/2024 4:08 PM EST Shereen Latham MD LAB BLOOD ORDERABLES Final Result Performing Organization Address [facility] Co de Phone Number [facility] [address] [place] [phone] * Vitamin B12 (11/08/2024 2:48 PM EST) [facility] Vitamin B12 499 200 - 900 pg/mL [facility] Comment:NORMAL 200-900 PG/ML INDETERMINATE 160-199 PG/ML DEFICIENT < 160 PG/ML Blood Venous blood specimen / Unknown 11/08/2024 2:48 PM EST 11/08/2024 4:08 PM EST Shereen Latham MD LAB BLOOD ORDERABLES Final Result Performing Organization Address [facility] de Phone Number [facility] [address] [place] [phone] * (ABNORMAL) Colonoscopy (07/11/2024) [facility] Colonoscopy Abnormal( A) Normal Comment:Herberth Stokes MD ?tubular adenoma x 3 Herberth Stokes MD HEALTH MAINTENANCE Final Result * Hepatitis Panel, General (06/16/2024 8:22 AM EDT) [facility] Hepatitis A IgM Nonreactive Nonreactive [facility] Comment:IgM antibodies to VIRAMONTES V not detected; does not exclude earlyacute or recovered HAV infection. ~Hepatitis B Surface Antibody REACTIVE Nonreactive [facility] Comment:REACTIVE: > 11.99 mI U/mL Hepatitis B Core Antibody Nonreactive Nonreactive [facility] Hepatitis C Antibody Nonreactive Nonreactive [facility] Comment:Antibodies to HCV no t detected; does not exclude early acuteHCV infection. Hepatitis B Surface Ag Negative Negative [facility] Blood Venous blood specimen / Unknown 06/16/2024 8:22 AM EDT 06/16/2024 11:18 AM EDT Shereen Latham MD LAB BLOOD ORDERABLES Final Result Performing Organization Address City/[facility]/ZIP Co de Phone Number [facility] [address] [place] [phone] * HIV-1/2 Antigen and Antibodies, Fourth Generation, with Reflexes (02/24/2024 8:47 AM EDT) HIV AB/AG Nonreactive Nonreactive [facility] Comment:HIV-1 p24 Ag and/or HIV-1/HIV-2 Ab not detected.A test result that is nonreactive does not exclude thepossibility of exposure to or infection with HIV-1 and/orHIV-2. Nonreactive results in this assay for individualswith prior exposure to HIV-1 and/or HIV-2 may be due toantigen and antibody levels that are below the limit ofdetection of this assay.The [employer] HIV Ag/Ab Combo assay result andsupplemental assay results should be interpreted inconjunction with the patient's clinical presentation,history and other laboratory results. If the results areinconsistent with clinical evidence, additional testing issuggested to confirm the result. Blood Venous blood specimen / Unknown 02/24/2024 8:47 AM EDT 02/24/2024 11:22 AM EDT us Naomi ORDAZ LAB BLOOD ORDERABLES Final Resul t Performing Organization Address City/[facility]/ZIP Co de Phone Number [facility] [address] [place] [phone] * BI Mammogram Screening Tomosynthesis Left (08/27/2023 1:00 PM EDT) Anatomical Region Laterality Modality Breast Left Mammography 08/27/2023 1:00 PM EDT Narrative 09/14/2023 6:06 AM EST ? [facility] ? [address] ?[place], [place] [address] ? Mammography Report ? Signed ? Patient: Segun,Azar ?MR#: [id number] ?? [id number] ? : 1975 ?Acct:[id number] ? Age/Sex: 47 / F ?ADM Date: 08/27/23 ? Loc: HO.MAMMO ? Attending Dr: Bhupinder Bennett MD ? Ordering Physician: Li Grande MD ?Results: 1Negat ?? dasia ? Date of Service: 08/27/23 ?Follow Up: 1 Year From Orig ?? inal Mammogram ? Procedure(s): MM tomosynthesis screening LT ?? Accession Number(s): [id number] ? cc: Bhupinder Bennett MD; Li Grande [...] by Fabiola Flores MD in OV> ? 09/14/236[address] ? DD/ 1300 ? TD/TT: ? Tank Charger: ? Procedure Note Sumi, Gypsy - 09/14/2023 [facility] [address] [place] [address] Mammography Report Signed Patient: Maged Cast#: [id number] : 1975Acct:[id number] Age/Sex: 47 / FADM Date: 08/27/23 Loc: HO.MAMMO Attending Dr: Bhupinder Bennett MD Ordering Physician: Li Grande MDResults: 1Negat dasia Date of Service: 08/27/23Follow Up: 1 Year From Orig inal Mammogram Procedure(s): MM tomosynthesis screening LT Accession Number(s): [id number] cc: Bhupinder Bennett MD; Li Grande MD [...] in OV> 09/14/23 0602 DD/ 1300 TD/TT: Tank Charger: [facility] External Provider IMG BI PROCEDURES Final Result * (ABNORMAL) Cologuard?? colon cancer screening (08/27/2023 11:24 AM EDT) Cologuard Result Positive( A) Negative 09/05/2023 10:16 PM EDT [facility] (CLIA #:[id number]) Comment: POSITIVE TEST RESULT. A positive Cologuard [...] (Felix Mccoy al, N Engl J Med 2014;370(14):9828-1966.) Cologuard may produce a false negative or false positive result (no colorectal cancer or precancerous polyp present at colonoscopy follow up). A negative Cologuard test result does not guarantee the absence of CRC or advanced adenoma (pre-cancer). The current Cologuard screening interval is every 3 years. ([place] [employer] Society and U.S. Multi-Society Task Force). Cologuard performance data in a 10,000 patient pivotal study using colonoscopy as the reference method can be accessed at the following location: www.[employer]/results. Additional description of the Cologuard test process, warnings and precautions can be found at www.[employer].Inaaya. Stool specimen (specimen) 08/27/2023 11:24 AM EDT 08/29/2023 6:48 AM EDT Shereen Latham MD LAB MOLECULAR DIAGNOSTICS ORDERABLES Final Result [facility] (CLIA #:[id number]) [address] [place] [address], * HPV mRNA E6/E7 (08/12/2018 10:57 AM EDT) HPV mRNA E6/E7 Not Detected NOT DETECTED [facility] Comment: This test was performed using the APTIMA(R) HPV Assay ([employer] This assay detects E6/E7 viral messenger RNA (mRNA) from 14 high-risk HPV types (16,18,31,33,35,39,45,51, 52,56,58,59,66,68). For additional information please refer to: http://education.[employer]/faq/LHP605x7 (This link is being provided for informational/ educational purposes only.) The analytical performance characteristics of this assay have been determined by [employer] [place], [place]. The modifications have not been cleared or approved by the FDA. This assay has been validated pursuant to the CLIA regulations and is used for clinical purposes. Test Performed by [facility] [place], [employer] [place], [address] [place] [address] Dwaine Morelos M.D., Ph.D., Director of Laboratories , CLIA [id number] Please note: ??Effective 07/14/2016, HPV testing will be performed using [employer] APTIMA test which targets mRNA. Detecting mRNA instead of DNA, as in older methods, offers significant improvements in specificity. 08/12/2018 10:5 7 AM EDT us Shereen Latham MD HISTORICAL/NON ORDERABLE L ABS Final Result [facility] Anywhere [address] from Last 3 Months or Most Recently Relevant to Health Maintenance Insurance [facility] C[facility] STAND ADULT Advance Directives Documents on File Type Date Recorded Patient Court Reporter Expl anation Advance Directives and Living Will 07/05/2024 11:59 AM Health Care Proxy Care Teams Local Flatbed Driver Relationship Specialty Start Date End Date Woodland, MD Shereen [address] [place] [address] PCP - General Family Medicine 11/02/18 Nupur Bullock, CharleneD [address] [place] [address] Pharmacist Internal Medicine 08/09/24 Dylon[address]leneSury [address] [facility] [address] [place] [address] Pulmonary Disease 09/27/24 Nirali Madrid, SUSAN [address] [place] [address] Optometry 10/27/24 Li Grande MD [address] [place] [phone] Hematology and Oncology 10/27/24 Anselmo Gates MD [address] [place] [address] Orthopaedic Surgery 10/27/24 Margaret Holman [address] [facility] 3rd [place] [address] Cardiology 10/27/24 Herberth Stokes MD [address] [facility] [address] [place] [address] Gastroenterology 10/27/24 Pily Delaney [employer] SupervisorMarine Architect 07/22/24 Elie Vicky [facility] [place] 12/29/24
--- OUTSIDE RECORDS SUMMARY | 2025-01-30 16:53 | XMS_ITS | Encounter Summary ---
Author Organization [employer] Address [address] [facility] 7t [place] [address] Care Team Providers Care Lieutenant Governor Name Role Phone Shereen aLtham MD Primary Care Provider [phone]- [phone] Nupur Bullock PharmD Unavailable Sury Benitez Unavailable [phone] Nirali Madrid OD Unavailable Li Grande MD Unavailable [phone] Anselmo Gates MD Unavailable Margaret Holman Unavailable Herberth Stokes MD Unavailable [phone] Reason for Visit * Reason Onset Date Comments ER Follow-up 12/07/2024 Encounter Details Date Type Department Care Team (Late st Contact Info) Description 12/07/2024 Telephone [facility] MEDICINE 230 [place], [place] [phone] Shereen Latham MD 230 [place], [place] [phone] ER Follow-up Social History Tobacco Use Types [...] TC placed to pt to f/u on [facility] visit on 12/06/2024 for right lower [...] ED visit on : Date: 12/06/24 Hospital: [facility] Seen for: Flu Patient advised will forward to team nurse for follow up documented in this encounter Plan of Treatment Upcoming Encounters Date Type Department Care Team (Late st Contact Info) Description 02/13/2025 2:00 PM EDT Clinical Support [facility] DIABETES/NUTRITION 230 [place] [address] Ernestina Esteban, RD 230 [place] [address] 02/17/2025 2:30 PM EDT Office Visit [facility] ADULT DENTAL 230 [place] [address] Paz-Connor, Isa, DDS 230 [place] [address] 03/29/2025 2:00 PM EDT Office Visit [facility] ADULT DENTAL 230 [place] [address] Heidi, Jenny 230 [place] [address] documented as of this encounter Visit Diagnoses Not on filedocumented in this encounter Additional Health Concerns Assessment Noted Time PHQ-9 Depression Total Score: 13 06/07/ 024 4:53 PM EDT documented as of this encounter Care Teams Lieutenant Governor Relationship Specialty Start Date End Date Shereen Latham MD 230 [place] [address] PCP - General Family Medicine 11/02/18 Nupur Bullock, Pushpa 230 [place] [address] Pharmacist Internal Medicine 08/09/24 Emmanuel Sury [address] [place] [address] Dr [facility] [address] [place] [address] Pulmonary Disease 09/27/24 Nirali Madrid, SUSAN [address] [place] [address] Optometry 10/27/24 Li Grande MD [address] [place] [address] Hematology and Oncology 10/27/24 Anselmo Gates MD [address] [place] [address] Orthopaedic Surgery 10/27/24 Margaret Holman 11 [facility] 3rd [place] [address] Cardiology 10/27/24 Herberth Stokes MD 11 [facility] 3rd [place] [address] Gastroenterology 10/27/24 Pily Delaney ReceptionBoard Liner Operator 07/22/24 Elie Vicky [facility] 12/29/24 documented as of this encounter
--- OUTSIDE RECORDS SUMMARY | 2025-01-30 16:53 | XMS_ITS | Encounter Summary ---
Author Organization [employer] Address 75 [facility] 7t [place] [address] Care Team Providers Care Hedge Fund Manager Name Role Phone Shereen Latham MD Primary Care Provider [phone]- [phone] Nupur Bullock PharmD Unavailable Sury Benitez Unavailable [phone] Nirali Madrid OD Unavailable [phone] Li Grande MD Unavailable [phone] Anselmo Gates MD Unavailable Margaret Holman Unavailable Herberth Stokes MD Unavailable [phone] Reason for Visit * Reason Onset Date Comments Nurse Triage 01/25/2024 Referral 01/25/2024 Encounter Details Date Type Department Care Team (Late st Contact Info) Description 01/25/2024 Telephone [facility] 230 [place], [place] [phone] Shereen Latham MD 230 [place], [place] [phone] Nurse Triage; Referral Social History Tobacco Use [...] vary. Pt wants to be referred to [facility] [address] [place] [address]. Adivsed will send to team to review [...] 2:00 PM EDT Clinical Support [facility] DIABETES/NUTRITION 230 [place] [address] Ernestina Esteban, RD 230 [place] [address] 02/17/2025 2:30 PM EDT Office Visit [facility] ADULT DENTAL 230 [place] [address] Paz-Connor, Isa, DDS 230 [place] [address] 03/29/2025 2:00 PM EDT Office Visit [facility] ADULT DENTAL 230 [place] [address] Heidi, Jenny 230 [place] [address] documented as of this encounter Visit Diagnoses Not on filedocumented in this encounter Additional Health Concerns Assessment Noted Time PHQ-9 Depression Total Score: 21 12/21/2 023 10:42 AM EST documented as of this encounter Care Teams Hedge Fund Manager Relationship Specialty Start Date End Date Shereen Latham MD 230 [place] [address] PCP - General Family Medicine 11/02/18 Nupur Bullock, CharleneD 230 [place] [address] Pharmacist Internal Medicine 08/09/24 Sury Benitez [address] [place] [address] Dr [facility] 103 [place] [address] Pulmonary Disease 09/27/24 Nirali Madrid OD [address] [place] [address] Optometry 10/27/24 Li Grande MD [address] [place] [address] Hematology and Oncology 10/27/24 Anselmo Gates MD [address] [place] [address] Orthopaedic Surgery 10/27/24 Margaret Holman 11 [facility] 3rd [place] [address] Cardiology 10/27/24 Herberth Stokes MD 11 [facility] 3rd [place] [address] Gastroenterology 10/27/24 Pily Delaney Appeals And Generalist ClerkHandicapped Teacher 07/22/[address] [facility] 12/29/24 documented as of this encounter
--- OUTSIDE RECORDS SUMMARY | 2025-01-30 16:53 | XMS_ITS | Encounter Summary ---
Author Organization [employer] Address 75 [facility] 7t [place] [address] Care Team Providers Care Billing Adjudicator Name Role Phone Shereen Latham MD Primary Care Provider [phone]- [phone] Nupur Bullock PharmD Unavailable Sury Benitez Unavailable [phone] Nirali Madrid OD Unavailable Li Grande MD Unavailable [phone] Anselmo Gates MD Unavailable Margaret Holman Unavailable Herberth Stokes MD Unavailable [phone] Reason for Visit * Reason Onset Date Comments Medication Question 01/24/2025 Encounter Details Date Type Department Care Team (Late st Contact Info) Description 01/24/2025 Telephone [facility] MEDICINE 230 [place], [place] [phone] Shereen Latham MD [address] [place], [place] [phone] Medication Question Social History Tobacco Use Types [...] Telephone Encounter - Cira Martinez RN - 01/27/2025 11:21 AM EDT Return call placed to the pt to inform that a new order for Mammogram Diagnostic Bilateral has beenplaced by Dr. Latham. Pt advised that [facility] will call once appt is scheduled, sometime in early March. Pt further advised that Dr. Fernandez is agreeable to her taking both the multivitamin and D at the same time as it will not cause any negative effects. Pt to have magnesium rechecked sometime next week. v * Telephone Encounter - Cira Martinez RN - 01/27/2025 10:20 AM EDT TC placed to pt in regards to the pt increase in Magnesium dosage. Pt was informed per Dr. Fernandez that she is currently on the higher dose due to her magnesium being very low. Pt also advised thatshe is not on the mag citrated due to the dose can give her the side effect of diarrhea. Pt was agreeable to this information but also wanted to inquire about the current prescription of vitamin D3. Pt is not sure if Dr. Fernandez is aware of the piano regulator inspector prescribing her multivitamins and if taking the vit D and multivitamin in conjunction with each other may cause too much elevation in the Vit D. Rn also placed a call to [facility] regarding the pt mammogram order. Per [facility], the pt will need a new order sent in for a bilateral diagnostic mammogram. The pt will be called once it isscheduled for around early March. * Telephone Encounter - Layton Jeff - 01/27/2025 10:00 AM EDT Tc from pt requesting a callback in regards medication questions. Pt states she has several concerns in regards medications she's taking. PLEASE return call [phone] * Telephone Encounter - Layton Jeff - 01/24/2025 3:06 PM EDT Tc from pt requesting information of medication magnesium oxide (Mag-Ox) 400 MG tablet as pt preferchange to magnesium citrate. Pt has questions in regards medication Why am I taking a high dose ? Am I supposed to take a high dose is it neccessary ? If medication change is dose going to lower ? documented in this encounter Plan of Treatment Upcoming Encounters Date Type Department Care Team (Late st Contact Info) Description 02/13/2025 2:00 PM EDT Clinical Support [facility] DIABETES/NUTRITION 230 [place] [address] Ernestina Esteban, RD 230 [place] [address] 02/17/2025 2:30 PM EDT Office Visit [facility] ADULT DENTAL 230 [place] [address] Paz-ConnorIsa abarca, DDS 230 [place] [address] 03/29/2025 2:00 PM EDT Office Visit [facility] ADULT DENTAL 230 [place] [address] Heidi, Jenny 230 [place] [address] documented as of this encounter Visit Diagnoses Not on filedocumented in this encounter Additional Health Concerns Assessment Noted Time PHQ-9 Depression Total Score: 22 025 10:17 AM EST documented as of this encounter Care Teams Billing Adjudicator Relationship Specialty Start Date End Date Shereen Latham MD 230 [place] [address] PCP - General Family Medicine 11/02/18 Nupur Bullock PharmD 230 [place] [address] Pharmacist Internal Medicine 08/09/24 Sury Benitez [address] [place] [address] [place] [address] [place] [address] Pulmonary Disease 09/27/24 Nirali Madrid OD [address] [place] [address] Optometry 10/27/24 Li Grande MD [address] [place] [address] Hematology and Oncology 10/27/24 Anselmo Gates MD [address] [place] [address] Orthopaedic Surgery 10/27/24 Margaret Holman [address] 3rd [place] [address] Cardiology 10/27/24 Herberth Stokes MD [address]rd [place] [address] Gastroenterology 10/27/24 Pily Delaney Primary Products InspectorsAdvertising Assistant 07/22/24 Elie BRASHER [facility] Psychology 12/29/24 documented as of this encounter
--- OUTSIDE RECORDS SUMMARY | 2025-01-30 16:53 | XMS_ITS | Encounter Summary ---
Author Organization [employer] Address 75 [facility] 7t [place] [address] Care Team Providers Care Administrative Professional Name Role Phone Shereen Latham MD Primary Care Provider [phone]- [phone] Nupur Bullock PharmD Unavailable Sury Benitez Unavailable [phone] Nirali Madrid OD Unavailable Li Grande MD Unavailable [phone] Anselmo Gates MD Unavailable Margaret Holman Unavailable Herberth Stokes MD Unavailable [phone] Encounter Details Date Type Department Care Team (Late st Contact Info) Description 10/11/2024 Telephone [facility] MEDICINE 230 [place], [place] [phone] Shereen Latham MD 230 [place], [place] [phone] Social History Tobacco Use Types Packs/Day Years [...] 2:00 PM EDT Clinical Support [facility] DIABETES/NUTRITION 230 [place] [address] [place] [address] 02/17/2025 2:30 PM EDT Office Visit [facility] ADULT DENTAL 230 [place] [address] Isa De La Rosa, DDS 230 [place] [address] 03/29/2025 2:00 PM EDT Office Visit [facility] ADULT DENTAL 230 [place] [address] Jenny Gordon 230 [place] [address] documented as of this encounter Visit Diagnoses Not on filedocumented in this encounter Additional Health Concerns Assessment Noted Time PHQ-9 Depression Total Score: 13 024 4:53 PM EDT documented as of this encounter Care Teams Administrative Professional Relationship Specialty Start Date End Date Shereen Latham MD 230 [place] [address] PCP - General Family Medicine 11/02/18 Nupur Bullock, CharleneD 230 [place] [address] Pharmacist Internal Medicine 08/09/24 Sury Benitez [address] [facility] 103 [place] [address] Pulmonary Disease 09/27/24 Nirali Madrid OD 267 [place] [address] Optometry 10/27/24 Li Grande MD 575 [place] [address] Hematology and Oncology 10/27/24 Anselmo Gates MD [address] [place] [address] Orthopaedic Surgery 10/27/24 Margaret Holman [address] 3rd [place] [address] Cardiology 10/27/24 Herberth Stokes MD [address] 3rd Floor [place] [address] Gastroenterology 10/27/24 Pily Delaney Certified Tumor RegistrarSupervisor Customer Records Division 07/22/24 Elie BRASHER [facility] 12/29/24 documented as of this encounter
--- OUTSIDE RECORDS SUMMARY | 2025-01-30 16:53 | XMS_ITS | Encounter Summary ---
Author Organization [employer] Address 75 [facility] 7t [place] [address] Care Team Providers Care Chute Man Name Role Phone Shereen Latham MD Primary Care Provider [phone]- [phone] Nupur Bullock PharmD Unavailable Sury Benitez Unavailable [phone] JuliusNirali castellanos OD Unavailable iL Grande MD Unavailable [phone] Anselmo Gates MD Unavailable Margaret Holman Unavailable Herberth Stokes MD Unavailable [phone] Encounter Details Date Type Department Care Team (Latest Contact Info) Description 07/06/2019 Abstract [facility] CONVERSIONS Dental, Provider, DDS Social History Tobacco [...] 2:00 PM EDT Clinical Support [facility] DIABETES/NUTRITION 230 [place] [address] Ernestina Esteban, RD 230 [place] [address] 02/17/2025 2:30 PM EDT Office Visit [facility] ADULT DENTAL 230 [place] [address] Paz-ConnorIsa, DDS 230 [place] [address] 03/29/2025 2:00 PM EDT Office Visit [facility] ADULT DENTAL 230 [place] [address] Heidi Jenny 230 [place] [address] documented as of this encounter Visit Diagnoses Not on filedocumented in this encounter Care Teams Chute Man Relationship Specialty Start Date End Date [place], [place] Shereen 230 [place] [address] PCP - General Family Medicine 11/02/18 Nupur Bullock PharmD 230 [place] [address] Pharmacist Internal Medicine 08/09/24 Sury Benitez [address] [place] [address] [address] Pulmonary Disease 09/27/24 Nirali Madrid OD [address] [place] [address] Optometry 10/27/24 Li Grande MD [address] [place] [address] Hematology and Oncology 10/27/24 Anselmo Gtaes MD [address] [place] [address] [address] [place] [address] Orthopaedic Surgery 10/27/24 Margaret Holman [address] 3rd [place] [address] Cardiology 10/27/24 Herberth Stokes MD [address] [place] [address] Drive 3rd [place] [address] Gastroenterology 10/27/24 Pily Delaney Dry FinisherScanning Coordinator 07/22/24 Elie BRASHER [facility] Psychology 12/29/24 documented as of this encounter
--- OUTSIDE RECORDS SUMMARY | 2025-01-30 16:53 | XMS_ITS | Encounter Summary ---
Author Organization [employer] Address 75 [facility] 7t [place] [address] Care Team Providers Care Rn Trauma Name Role Phone Shereen Latham MD Primary Care Provider [phone]- [phone] Nupur Bullock PharmD Unavailable Sury Benitez Unavailable [phone] Nirali Madrid OD Unavailable [phone] Li Grande MD Unavailable [phone] Anselmo Gates MD Unavailable Margaret Holman Unavailable Herberth Stokes MD Unavailable [phone] Encounter Details Date Type Department Care Team (Late st Contact Info) Description 07/27/2023 Orders Only [facility] MEDICINE 230 [place], [place] [phone] Shereen Latham MD 230 [place], [place] [phone] Hypomagnesemia Social History Tobacco Use Types Packs/Day [...] Description 02/13/2025 2:00 PM EDT Clinical Support [facility] DIABETES/NUTRITION [address] [place] [address] Ernestina Esteban, RD 230 [place] [address] 02/17/2025 2:30 PM EDT Office Visit [facility] ADULT DENTAL [address] [place] [address] Paz-Connor, Isa, DDS [address] [place] [address] 03/29/2025 2:00 PM EDT Office Visit [facility] ADULT DENTAL 230 [place] [address] Heidi, Jenny 230 [place] [address] documented as of this encounter Visit Diagnoses Diagnosis Hypomagnesemia Disorders of magnesium metabolism documented in this encounter Additional Health Concerns Assessment Noted Time PHQ-9 Depression Total Score: 10 023 10:27 AM EDT documented as of this encounter Care Teams Rn Trauma Relationship Specialty Start Date End Date Shereen Latham MD [address] [place] [address] PCP - General Family Medicine 11/02/18 Nupur Bullock PharmD [address] [place] [address] Pharmacist Internal Medicine 08/09/24 Sury Benitez [address] [place] [address] [place] [address] [place] [address] Pulmonary Disease 09/27/24 Nirali Madrid OD [address] [place] [address] Optometry 10/27/24 Li Grande MD [address] [place] [address] Hematology and Oncology 10/27/24 Anselmo Gates MD [address] [place] [address] Orthopaedic Surgery 10/27/24 Margaret Holman [address] 3rd [place] [address] Cardiology 10/27/24 Herberth Stokes MD [address] [place] [address] Gastroenterology 10/27/24 Pily Delaney Office AuditorClinical Nursing Intern 07/22/24 Elie Vicky [facility] Psychology 12/29/24 documented as of this encounter
--- OUTSIDE RECORDS SUMMARY | 2025-01-30 16:53 | XMS_ITS | Encounter Summary ---
Author Organization [employer] Address 75 [facility] 7t [place] [address] Care Team Providers Care Income Tax Adjuster Name Role Phone Shereen Latham MD Primary Care Provider [phone] Nupur Bullock PharmD Unavailable Sury Benitez Unavailable [phone] JuliusNirali castellanos OD Unavailable Li Grande MD Unavailable [phone] Anselmo Gates MD Unavailable Margaret Holman Unavailable Herberth Stokes MD Unavailable [phone] Encounter Details Date Type Department Care Team (Latest Contact Info) Description 08/16/2021 Abstract [facility] CONVERSIONS Dental, Provider, DDS Social History [...] Description 02/13/2025 2:00 PM EDT Clinical Support [facility] DIABETES/NUTRITION 230 [place] [address] Ernestina Esteban, RD 230 [place] [address] 02/17/2025 2:30 PM EDT Office Visit [facility] ADULT DENTAL 230 [place] [address] Paz-Connor, Isa, DDS 230 [place] [address] 03/29/2025 2:00 PM EDT Office Visit [facility] ADULT DENTAL [address] [place] [address] Jeramie Gordonaris 230 [place] [address] documented as of this encounter Visit Diagnoses Not on filedocumented in this encounter Care Teams Income Tax Adjuster Relationship Specialty Start Date End Date Noa, MD Shereen 230 [place] [address] PCP - General Family Medicine 11/02/18 Nupur Bullock PharmD 230 [place] [address] Pharmacist Internal Medicine 08/09/24 Sury Benitez [address] [place] [address] [address] Pulmonary Disease 09/27/24 Nirali Madrid OD [address] [place] [address] Optometry 10/27/24 Li Grande MD [address] [place] [address] Hematology and Oncology 10/27/24 Anselmo Gates MD [address] [place] [address] Drive [address] [place] [address] Orthopaedic Surgery 10/27/24 Margaret Holman [address] 3rd [place] [address] Cardiology 10/27/24 Herberth Stokes MD [address] [facility] [place] [address] Gastroenterology 10/27/24 Pily Delaney Sales MarketingWomen'S Apparel Salesperson 07/22/24 Elie Vicky [facility] Psychology 12/29/24 documented as of this encounter
--- OUTSIDE RECORDS SUMMARY | 2025-01-30 16:53 | XMS_ITS | Clinical Summary ---
Author Organization [facility] it Address [address] [place] [address] Care Team Providers Care Blending Plant Operator Name Role Phone Shereen Latham MD Primary Care Provider [phone]- [phone] Social History Tobacco Use Types Packs/Day Years [...] 08/11/2024 Social Influencers of Health Screening 08/11/2024 Depression Screening 06/07/2025 06/07/2024 Hypertension/CHF/CAD Annual BMP [...] (6 to 64 Years) Completed 03/30/2024, 08/23/2008 Hepatitis A Vaccines Aged Out 06/29/2024 No long er eligible based on patient's age to complete this topic HIB Vaccines Aged Out No longer eligi [...] age to complete this topic Care Teams Blending Plant Operator Relationship Specialty Start Date End Date Shereen Latham MD [address] [place] [phone] PCP - General 01/13/1996
--- OUTSIDE RECORDS SUMMARY | 2025-01-30 16:53 | XMS_ITS | Encounter Summary ---
Author Organization [employer] Address 75 [facility] 7t [place] [address] Care Team Providers Care Machine Sizer Name Role Phone Shereen Latham MD Primary Care Provider [phone]- [phone] Nupur Bullock PharmD Unavailable Sury Benitez Unavailable [phone] Nirali Madrid OD Unavailable Li Grande MD Unavailable [phone] Anselmo Gates MD Unavailable Margaret Holman Unavailable Herberth Stokes MD Unavailable [phone] Reason for Visit * Reason Comments Med Refill Encounter Details Date Type Department Care Team (Late st Contact Info) Description 12/02/2022 Refill [facility] MEDICINE 230 [place], [place] [phone] Shereen Latham MD 230 [place], [place] [phone] Wheeze (Primary Dx); Pain Social History Tobacco [...] Description 02/13/2025 2:00 PM EDT Clinical Support [facility] DIABETES/NUTRITION 230 [place] [address] Sarkisjohnymallory Ernestina, RD 230 [place] [address] 02/17/2025 2:30 PM EDT Office Visit [facility] ADULT DENTAL 230 [place] [address] Paz-Connor, Isa, DDS 230 [place] [address] 03/29/2025 2:00 PM EDT Office Visit [facility] ADULT DENTAL 230 [place] [address] Heidi, Jenny 230 [place] [address] documented as of this encounter Visit Diagnoses Diagnosis Wheeze- Primary Wheezing Pain Generalized pain documented in this encounter Care Teams Machine Sizer Relationship Specialty Start Date End Date Shereen Latham MD 230 [place] [address] PCP - General Family Medicine 11/02/18 Nupur Bullock PharmD 230 [place] [address] Pharmacist Internal Medicine 08/09/24 Sury Benitez [address] [place] [address] [place] [address] [place] [address] Pulmonary Disease 09/27/24 Nirali Madrid OD [address] [place] [address] Optometry 10/27/24 Li Grande MD [address] [place] [address] Hematology and Oncology 10/27/24 Anselmo Gates MD [address] [place] [address] Orthopaedic Surgery 10/27/24 Margaret Holman [address] [place] [address] Cardiology 10/27/24 Herberth Stokes MD [address] [place] [address] Gastroenterology 10/27/24 Pily Delaney Certified OpticianWall Covering Installer 07/22/24 Elie Vicky [facility] Psychology 12/29/24 documented as of this encounter
--- OUTSIDE RECORDS SUMMARY | 2025-01-30 16:53 | XMS_ITS | Encounter Summary ---
Author Organization [employer] Address 75 [facility] 7t [place] [address] Care Team Providers Care Vp Ad Products And Planning Name Role Phone Shereen Latham MD Primary Care Provider [phone] Nupur Bullock PharmD Unavailable Sury Benitez Unavailable [phone] Nirali Madrid OD Unavailable [phone] Li Grande MD Unavailable [phone] Anselmo Gates MD Unavailable Margaret Holman Unavailable Herberth Stokes MD Unavailable [phone] Encounter Details Date Type Department Care Team (Late st Contact Info) Description 11/16/2022 Abstract [facility] [address] [place], [place] [phone] Shereen Latham MD [address] [place], [place] [phone] Social History Tobacco Use Types Packs/Day Years [...] 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 Per Dr. Krish Loomis's note from [facility] CYLINDER STEAMER, pt was due for repeat colposcopy in [...] Problem(s): Hyperaldosteronism (CMS/HCC) (Resolved 07/29/2023) Seen by [facility] Endocrinology 04/03/2022. Initially seen 12/2021 for hyperaldosteronism. Labs [facility] 10/2021 aldosterone 8, plasma renin 0.11, aldosterone/renin 72.7. She was likely on spironolactone and lisinopril at time of labs. Advise no spironolactone for 6 weeks and recheck renin aldosterone levels with renal panel and magnesium in client hr manager. 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 -S/p RIGHT mastectomy with sentinel node [facility] started Oct, completed [...] had ultrasound sound for abdominal pain at [facility]. Ultrasound showed diffusely echogenic parenchyma with focal sparing around the gallbladder. No suspicious lesions. Impression showed liver likely representing hepatic steatosis and non- obstructing right kidney stone. documented in this encounter Plan of Treatment Upcoming Encounters Date Type Department Care Team (Late st Contact Info) Description 02/13/2025 2:00 PM EDT Clinical Support [facility] DIABETES/NUTRITION [address] [place] [address] [place] [address] 02/17/2025 2:30 PM EDT Office Visit [facility] ADULT DENTAL [address] [place] [address] PazJjConnorIsa abarca, DDS [address] [place] [address] 03/29/2025 2:00 PM EDT Office Visit [facility]ULT [facility] [address] [place] [address] Heidi, Jenny [address] [place] [address] documented as of this encounter Visit Diagnoses Not on filedocumented in this encounter Care Teams Vp Ad Products And Planning Relationship Specialty Start Date End Date Shereen Latham MD [address] [place] [address] PCP - General Family Medicine 11/02/18 Nupur Bullock, CharleneD [address] [place] [address] Pharmacist Internal Medicine 08/09/24 Sury Benitez [address] [place] [address] Dr [facility] 103 [place] [address] Pulmonary Disease 09/27/24 Nirali Madrid OD [address] [place] [address] Optometry 10/27/24 Li Grande MD [address] [place] [address] Hematology and Oncology 10/27/24 Anselmo Gates MD [address] [facility] [place] [address] Orthopaedic Surgery 10/27/24 Margaret Holman [address] 3rd [place] [address] Cardiology 10/27/24 Herberth Stokes MD 11 [facility] 3rd [place] [address] Gastroenterology 10/27/24 Pily Delaney Manager SharepointTelephone Solicitor Supervisor 07/22/24 Elie Vicky [facility] 12/29/24 documented as of this encounter
== END 2025-01-30 15:36 | disposition home or self-care (01) ==
LOC: HO.HPS 14:56
PROVIDERS: PCP Family Medicine; Visit Provider Nurse Practitioner Family
DX: J42 Unspecified chronic bronchitis (principal); R94.2 Abnormal results of pulmonary function studies; R06.00 Dyspnea, unspecified; F17.210 Nicotine dependence, cigarettes, uncomplicated; R91.8 Other nonspecific abnormal finding of lung field
CPT/HCPCS: 99214

== ENCOUNTER → 2025-01-30 14:56 | Outpatient (BNVA) | payer MEDICAID, SELFPAY | PROVIDERS: PCP Family Medicine; Visit Provider Nurse Practitioner Family | DX: R94.2 Abnormal results of pulmonary function studies (principal); R06.00 Dyspnea, unspecified; R91.8 Other nonspecific abnormal finding of lung field; J42 Unspecified chronic bronchitis; F17.210 Nicotine dependence, cigarettes, uncomplicated | CPT/HCPCS: 99212 ==

== ENCOUNTER → 2025-02-02 07:56 | Outpatient (REF) | payer MEDICAID, SELFPAY ==
--- NOTE | 2025-02-02 07:58 | CA_ITS ---
Transthoracic Echocardiogram Patient (Last, First, Middle): Azra Cast, Gender: Female Date of : 1975 Age: 49 Procedure Date: 02/02/2025 Procedure Type: Transthoracic Echocardiogram Location: OP Height: 170.18 cm Weight: 90.72 kg BSA: 2.02 m2 Heart Rate: 109 bpm BP: 98 / 70 mmHg Gear Lapper: TO Referring MD: Margaret Holman CABINET MOUNTER-C Symptoms: R06.00 - Dyspnea, unspecified Study Quality: Adequate w contrast ECG Rhythm: Sinus tachycardia Conclusions: - The left ventricular systolic function is mildly decreased. The calculated ejection fraction is 50% by biplane method. - There is a small loculated pericardial effusion overlying the left ventricle. Findings Procedure Information Contrast agent, definity, is being given per protocol without apparent complications. Left Ventricle Normal left ventricular cavity size. The left ventricular systolic function is mildly decreased. The calculated ejection fraction is 50% by biplane method. There is mild global hypokinesis. There is mild septal asymmetric hypertrophy. Venous The inferior vena cava is normal in size and collapses less than 50% with inspiration. Pericardium/Pleural There is a small loculated pericardial effusion overlying the left ventricle. Prior Study Comparison Changes noted compared to prior study dated: 06/23/2024. Marginal decrease in LVEF. Measurements 2D Linear Measurements IVSd: 0.91 0.6-0.9/0.6-1.0 cm LVIDd: 4.49 3.9-5.3/4.2-5.9 cm LVIDd Index: 2.22 2.4-3.2/2.2-3.1 cm/m2 LVIDs: 3.19 2.0-3.6 cm LVPWd: 0.88 0.7-1.1 cm LA Diam: 3.70 2.7-3.8/3.0-4.0 cm LAIDs Index: 1.83 1.5-2.3 cm/m2 LV Mass: 163.32 67-162/88-224 g LV Mass Index: 80.85 43-95/49-115 g/m2 LVOT Diam: 2.30 3.0+(-)1.3 cm 2D Systolic Function EF 4C: 47.40 >55% EF 2C: 50.80 >55% EF BiP: 50.00 >55% LVOT LVOT Pk Prashant: 0.96 LVOT Mn Prashant: 0.64 LVOT VTI: 0.15 LVOT Pk Grad: 4.00 LVOT Mn Grad: 2.00 LVOT Diam: 2.30 LVOT Area: 4.15 Tricuspid Valve RA Press: 8.00 Updated in Other Vendor System with Status of Final Stevie Cano MD electronically signed on 02/03/2025 2:56:51 PM with status of Final
--- OUTSIDE RECORDS SUMMARY | 2025-02-02 07:58 | XMS_ITS | Encounter Summary ---
Author Organization [employer] Address 75 [facility] 7t [place] [address] Care Team Providers Care Staging Technician Name Role Phone Shereen Latham MD Primary Care Provider Nupur Bullock PharmD Unavailable Sury Benitez Unavailable [phone] Nirali Madrid OD Unavailable Li Grande MD Unavailable [phone] Anselmo Gates MD Unavailable Margaret Holman Unavailable Herberth Stokes MD Unavailable [phone] Reason for Referral * Consultation (Routine) - Closed Specialty Diagnoses / Procedures Referred By Walter t Referred To Contact Obstetrics and Gynecology Diagnoses Women's annual routine gynecological examination Stacey Khan MD 230 [place] [address] Phone: tel: fax: [facility] Women? s Services [address] 5[address] (Main Hospital Entrance) [place], [place] Phone: tel: fax: Referral ID Status Reason Start Date Expiration Date V isits Requested Visits Authorized [id number] Closed Specialty Services Required 01/19/2025 01/19/2026 9 9 Encounter Details Date Type Department Care Team (Late st Contact Info) Description 01/19/2025 Orders Only [facility] MEDICINE [address] [place] [address] Stacey Khan MD 230 [place] [address] Women's annual routine gynecological examination (Primary Dx) [...] Description 02/13/2025 2:00 PM EDT Clinical Support [facility] DIABETES/NUTRITION 230 [place] [address] Ernestina Esteban, RD 230 [place] [address] 02/17/2025 2:30 PM EDT Office Visit [facility] ADULT DENTAL [address] [place] [address] Paz-Connor, Isa, DDS [address] [place] [address] 03/29/2025 2:00 PM EDT Office Visit [facility] ADULT DENTAL [address] [place] [address] Heidi, Jenny [address] [place] [address] Scheduled Referrals Name Type Priority Associated Diagnoses [...] Sensitivity Troponin I (01/19/2025 4:33 PM EDT) [facility] TROPONIN I HIGH SENSITIVITY 7.8 <3.5 - 17.0 ng/L LABS Comment:The Henriquez high sens itivity Troponin-I results should beused in conjunction with other diagnostic information suchas ECG, clinical observations and information, and patientsymptoms to aid in the diagnosis of MD. 01/19/2025 4:33 PM EDT 01/19/2025 4:34 PM EDT Generic External Data Provider LAB BLOOD ORDERAB LES Final Result Performing Organization Address [facility]/ZIP Co de Phone Number LABS [address] [place] [phone] * B Type Natriuretic Peptide (BNP) (01/19/2025 4:33 PM EDT) [facility] B Type Natriuretic Peptide 22 <100 pg/mL LABS 01/19/2025 4:33 PM EDT 01/19/2025 4:34 PM EDT INCHRON External Data Provider LAB BLOOD ORDERAB LES Final Result Performing Organization Address [facility] Co de Phone Number LABS [address] [place] [phone] * D Dimer High Sensitivity (01/19/2025 4:33 PM EDT) [facility] D Dimer High Sensitivity <150 NG/ML LABS Comment:D-DIMER HS REFERENCE RANGENote: Our assay [...] Provider LAB BLOOD ORDERAB LES Final Result LABS [address] [place] [address] [phone] documented in this encounter Visit Diagnoses Diagnosis Women's annual routine gynecological examination- Primary documented in this encounter Additional Health Concerns Assessment Noted Time PHQ-9 Depression Total Score: 22 025 10:17 AM EST documented as of this encounter Care Teams Staging Technician Relationship Specialty Start Date End Date Shereen Latham MD 230 [place] [address] PCP - General Family Medicine 11/02/18 Nupur Bullock PharmD 230 [place] [address] Pharmacist Internal Medicine 08/09/24 Sury Benitez [address] [facility] [address] [facility] 103 [place] [address] Pulmonary Disease 09/27/24 Nirali Madrid OD [address] [place] [address] Optometry 10/27/24 Li Grande MD [address] [place] [address] Hematology and Oncology 10/27/24 Anselmo Gates MD [address] [facility] [place] [address] Orthopaedic Surgery 10/27/24 Margaret Holman 11 [facility] 3rd [place] [address] Cardiology 10/27/24 Herberth Stokes MD 11 [facility] 3rd [place] [address] Gastroenterology 10/27/24 Pily Delaney Mill Tender Second OperatorConsumer Safety Inspector 07/22/24 Elie BRASHER [facility] Psychology 12/29/24 documented as of this encounter
--- OUTSIDE RECORDS SUMMARY | 2025-02-02 07:58 | XMS_ITS | Encounter Summary ---
Author Organization [employer] Address 75 [facility] 7t [place] [address] Care Team Providers Care Pediatric Dermatologist Name Role Phone Shereen Latham MD Primary Care Provider Nupur Bullock PharmD Unavailable Sury Benitez Unavailable [phone] Nirali Madrid OD Unavailable Li Grande MD Unavailable [phone] Anselmo Gates MD Unavailable Margaret Holman Unavailable Herberth Stokes MD Unavailable [phone] Reason for Referral * Imaging (Routine) - Pending Review Specialty Diagnoses / Procedures Referred By Walter nelson Referred To Contact Radiology Diagnoses Breast pain, left Procedures BI Mammogram Diagnostic Tomosynthesis Left Stacey Khan MD 230 [place] [address] Phone: tel: fax: [facility] [address] [place] [address] Phone: tel: fax: Referral ID Status Reason Start Date Expiration Date V isits Requested Visits Authorized [id number] Pending Review 01/19/2025 01/19/2026 1 1 * Imaging (Routine) - Pending Review Specialty Diagnoses / Procedures Referred By Contanna t Referred To Contact Radiology Diagnoses Breast pain, left Procedures BI US Breast Limited Left Stacey Khan MD 230 [place] [address] Phone: tel: fax: [address] Phone: tel: fax: Referral ID Status Reason Start Date Expiration Date V isits Requested Visits Authorized [id number] Pending Review 01/19/2025 01/19/2026 1 1 Encounter Details Date Type Department Care Team (Late st Contact Info) Description 01/19/2025 Orders Only [facility] MEDICINE 230 [place] [address] Stacey Khan MD 230 [place] [address] Breast pain, left (Primary Dx) Social History [...] the past 12 months, has t he [employer], gas, oil or water company threatened to [...] Description 02/13/2025 2:00 PM EDT Clinical Support [facility] DIABETES/NUTRITION [address] [place] [address] Ernestina Esteban, RD 230 [place] [address] 02/17/2025 2:30 PM EDT Office Visit [facility] ADULT DENTAL 230 [place] [address] Paz-Connor, Isa, DDS 230 [place] [address] 03/29/2025 2:00 PM EDT Office Visit [facility] ADULT DENTAL [address] [place] [address] HeidiJenny castaneda 230 [place] [address] Scheduled Orders Name Type Priority Associated Diagnoses [...] documented as of this encounter Care Teams Pediatric Dermatologist Relationship Specialty Start Date End Date Shereen Latham MD 230 [place] [address] PCP - General Family Medicine 11/02/18 Nupur Bullock PharmD 230 [place] [address] Pharmacist Internal Medicine 08/09/24 Sury Benitez [address] [place] [address] Dr [facility] 103 [place] [address] Pulmonary Disease 09/27/24 Nirali Madrid OD [address] [place] [address] Optometry 10/27/24 Li Grande MD [address] [place] [address] Hematology and Oncology 10/27/24 Anselmo Gates MD 10 [facility] 203 [place] [address] Orthopaedic Surgery 10/27/24 Margaret Holman 11 [facility] 3rd [place] [address] Cardiology 10/27/24 Herberth Stokes MD 11 [facility] 3rd [place] [address] Gastroenterology 10/27/24 Pily Delaney Wild Oyster HarvesterEnvironmental Services Project Manager 07/22/24 Elie BRASHER [facility] Psychology 12/29/24 documented as of this encounter
--- OUTSIDE RECORDS SUMMARY | 2025-02-02 07:58 | XMS_ITS | Encounter Summary ---
Author Organization [employer] Address 75 [facility] 7t [place] [address] Care Team Providers Care Finished Yarn Examiner Name Role Phone Shereen Latham MD Primary Care Provider [phone] Nupur Bullock PharmD Unavailable Sury Benitez Unavailable [phone] Nirali Madrid OD Unavailable [phone] Li Grande MD Unavailable [phone] Anselmo Gates MD Unavailable Margaret Holman Unavailable Herberth Stokes MD Unavailable [phone] Reason for Visit * Reason Onset Date Comments Medication Question 07/05/2024 Encounter Details Date Type Department Care Team (Late st Contact Info) Description 07/05/2024 Telephone [facility] MEDICINE 230 [place], [place] [phone] Shereen Latham MD 230 [place], [place] [phone] Medication Question Social History Tobacco Use Types [...] is no medication interaction. Contact pt at [phone] documented in this encounter Plan of Treatment Upcoming Encounters Date Type Department Care Team (Late st Contact Info) Description 02/13/2025 2:00 PM EDT Clinical Support [facility] DIABETES/NUTRITION 230 [place] [address] Ernestina Esteban, RD 230 [place] [address] 02/17/2025 2:30 PM EDT Office Visit [facility] ADULT DENTAL 230 [place] [address] Isa De La Rosa, DDS 230 [place] [address] 03/29/2025 2:00 PM EDT Office Visit [facility] ADULT DENTAL 230 [place] [address] Jenny Gordon 230 [place] [address] documented as of this encounter Visit Diagnoses Diagnosis Pain Generalized pain documented in this encounter Additional Health Concerns Assessment Noted Time PHQ-9 Depression Total Score: 13 024 4:53 PM EDT documented as of this encounter Care Teams Finished Yarn Examiner Relationship Specialty Start Date End Date Shereen Latham MD 230 [place] [address] PCP - General Family Medicine 11/02/18 Nupur Bullock, CharleneD 230 [place] [address] Pharmacist Internal Medicine 08/09/24 Sury Benitez [address] [facility] [address] [facility] 103 [place] [address] Pulmonary Disease 09/27/24 Nirali Madrid, SUSAN [address] [place] [address] Optometry 10/27/24 Li Grande MD 575 [place] [address] Hematology and Oncology 10/27/24 Anselmo Gates MD [address] [facility] [address] [place] [address] Orthopaedic Surgery 10/27/24 Margaret Holman 11 [facility] 3rd [place] [address] Cardiology 10/27/24 Herberth Stokes MD 11 [facility] 3rd [place] [address] Gastroenterology 10/27/24 Pily Delaney Barrel Rifler HookLarge Animal Husbandry Technician 07/22/24 Elie Vicky [facility] 12/29/24 documented as of this encounter
--- OUTSIDE RECORDS SUMMARY | 2025-02-02 07:58 | XMS_ITS | Encounter Summary ---
Author Organization [employer] Address 75 [facility] 7t [place] [address] Care Team Providers Care Engineer Name Role Phone Shereen Latham MD Primary Care Provider [phone] Nupur Bullock PharmD Unavailable Sury Benitez Unavailable [phone] Nirali Madrid OD Unavailable Li Grande MD Unavailable [phone] Anselmo Gates MD Unavailable Margaret Holman Unavailable Herberth Stokes MD Unavailable [phone] Reason for Visit * Reason Comments Med Refill Encounter Details Date Type Department Care Team (Late st Contact Info) Description 01/17/2025 Refill [facility] MED & PEDS [address] [place], [place] [phone] Shereen Latham MD 230 [place] [address] Pain Social History Tobacco Use Types Packs/Day [...] [facility]TRITION 230 [place] [address] [place] [address] 02/17/2025 2:30 PM EDT Office Visit [facility] ADULT DENTAL 230 [place] [address] Paz-Connor, Isa, DDS 230 [place] [address] 03/29/2025 2:00 PM EDT Office Visit [facility] ADULT DENTAL 230 [place] [address] Heidi, Jenny [address] [place] [address] documented as of this encounter Visit Diagnoses Diagnosis Pain Generalized pain documented in this encounter Additional Health Concerns Assessment Noted Time PHQ-9 Depression Total Score: 22 025 10:17 AM EST documented as of this encounter Care Teams Engineer Relationship Specialty Start Date End Date Shereen Latham MD 230 [place] [address] PCP - General Family Medicine 11/02/18 Nupur Bullock, CharleneD 230 [place] [address] Pharmacist Internal Medicine 08/09/24 Sury Benitez [address] [place] [address] Dr [facility] 103 [place] [address] Pulmonary Disease 09/27/24 Nirali Madrid OD [address] [place] [address] Optometry 10/27/24 Li Grande MD 575 [place] [address] Hematology and Oncology 10/27/24 Anselmo Gates MD [address] [facility] [address] [facility] [address] [place] [address] Orthopaedic Surgery 10/27/24 Margaret Holman [address]rd [place] [address] Cardiology 10/27/24 Herberth Stokes MD 11 [facility] 3rd [place] [address] Gastroenterology 10/27/24 Pily Delaney Agricultural Education ProfessorTravel Consultant 07/22/24 Elie Vicky [facility] Psychology 12/29/24 documented as of this encounter
--- OUTSIDE RECORDS SUMMARY | 2025-02-02 07:58 | XMS_ITS | Encounter Summary ---
Author Organization [employer] Address 75 [facility] 7t [place] [address] Care Team Providers Care Oceanology Teacher Name Role Phone Shereen Latham MD Primary Care Provider [phone] Nupur Bullock PharmD Unavailable Sury Benitez Unavailable [phone] Nirali Madrid OD Unavailable Li Grande MD Unavailable [phone] Anselmo Gates MD Unavailable Margaret Holman Unavailable Herberth Stokes MD Unavailable [phone] Encounter Details Date Type Department Care Team (Late st Contact Info) Description 04/26/2024 Orders Only [facility] MEDICINE 230 [place], [place] [phone] Junie Damon MD 230 [place], [place] [phone] Social History Tobacco Use Types Packs/Day Years [...] Description 02/13/2025 2:00 PM EDT Clinical Support [facility] DIABETES/NUTRITION 230 [place] [address] [place] [address] 02/17/2025 2:30 PM EDT Office Visit [facility] ADULT DENTAL 230 [place] [address] Alfredo De La Rosafemia, DDS 230 [place] [address] 03/29/2025 2:00 PM EDT Office Visit [facility] ADULT DENTAL 230 [place] [address] Jenny Gordon 230 [place] [address] documented as of this encounter Visit Diagnoses Not on filedocumented in this encounter Additional Health Concerns Assessment Noted Time PHQ-9 Depression Total Score: 23 024 1:45 PM EDT documented as of this encounter Care Teams Oceanology Teacher Relationship Specialty Start Date End Date Shereen Latham MD 230 [place] [address] PCP - General Family Medicine 11/02/18 Nupur Bullock, CharleneD 230 [place] [address] Pharmacist Internal Medicine 08/09/24 Sury Benitez [address] [place] [address] Dr [facility] 103 [place] [address] Pulmonary Disease 09/27/24 Nirali Madrid OD 267 [place] [address] Optometry 10/27/24 Li Grande MD 575 [place] [address] Hematology and Oncology 10/27/24 Anselmo Gates MD [address] [facility] [address] [place] [address] Orthopaedic Surgery 10/27/24 Margaret Holman [address] 3rd [place] [address] Cardiology 10/27/24 Herberth Stokes MD [address] [facility] [address] 3rd [place] [address] Gastroenterology 10/27/24 Pily Delaney Information Technology AdvisorGravity Prospecting Observer 07/22/24 Elie Vicky [facility] 12/29/24 documented as of this encounter
--- OUTSIDE RECORDS SUMMARY | 2025-02-02 07:58 | XMS_ITS | Encounter Summary ---
Author Organization [employer] Address 75 [facility] 7t [place] [address] Care Team Providers Care Plant Custodian Name Role Phone Shereen Latham MD Primary Care Provider [phone] Nupur Bullock PharmD Unavailable Sury Benitez Unavailable [phone] Nirali Madrid OD Unavailable [phone] Li Grande MD Unavailable [phone] Anselmo Gates MD Unavailable Margaret Holman Unavailable Herberth Stokes MD Unavailable [phone] Reason for Visit * Reason Onset Date Comments Nurse Triage 05/25/2024 Encounter Details Date Type Department Care Team (Late st Contact Info) Description 05/25/2024 Telephone [facility] MEDICINE 230 [place], [place] [phone] Shereen Latham MD 230 [place], [place] [phone] Nurse Triage Social History Tobacco Use Types [...] leftfoot pain and Pt was seen by butt trimmer, Leta Lunsford MD 05/11/24 also (report is on the chart). Pt had been advised to stop BP med chlorthalidone per butt trimmer [facility] because that particular medication [...] anxiety. Pt is advised to come to [facility] today , open till 8pm, [...] Description 02/13/2025 2:00 PM EDT Clinical Support [facility] DIABETES/NUTRITION 230 [place] [address] 230 [place] [address] 02/17/2025 2:30 PM EDT Office Visit [facility] ADULT DENTAL 230 [place] [address] Paz-Isa Connor, DDS 230 [place] [address] 03/29/2025 2:00 PM EDT Office Visit [facility] ADULT DENTAL 230 [place] [address] Jeramie Gordonaris 230 [place] [address] documented as of this encounter Visit Diagnoses Not on filedocumented in this encounter Additional Health Concerns Assessment Noted Time PHQ-9 Depression Total Score: 22 024 9:12 AM EDT documented as of this encounter Care Teams Plant Custodian Relationship Specialty Start Date End Date Shereen Latham MD 230 [place] [address] PCP - General Family Medicine 11/02/18 Nupur Bullock PharmD 230 [place] [address] Pharmacist Internal Medicine 08/09/24 Sury Benitez [address] [place] [address] [address] [place] [address] Pulmonary Disease 09/27/24 Nirali Madrid OD 267 [place] [address] Optometry 10/27/24 Li Grande MD [address] [place] [address] Hematology and Oncology 10/27/24 Anselmo Gates MD [address] [place] [address] [address] [place] [address] Orthopaedic Surgery 10/27/24 Margaert Holman [address]rd [place] [address] Cardiology 10/27/24 Herberth Stokes MD [address] [facility] [place] [address] Gastroenterology 10/27/24 iPly Delaney Alterations Workroom ClerkCareer Guidance Counselor 07/22/24 Elie Vicky [facility] Psychology 12/29/24 documented as of this encounter
--- OUTSIDE RECORDS SUMMARY | 2025-02-02 07:58 | XMS_ITS | Encounter Summary ---
Author Organization [employer] Address [address] [facility] 7t [place] [address] Care Team Providers Care Auto Clutch Rebuilder Name Role Phone Shereen Latham MD Primary Care Provider [phone] Nupur Bullock PharmD Unavailable Sury Benitez Unavailable [phone] Niarli Madrid OD Unavailable Li Grande MD Unavailable [phone] Anselmo Gates MD Unavailable Margaret Holman Unavailable Herberth Stokes MD Unavailable [phone] Encounter Details Date Type Department Care Team (Late st Contact Info) Description 10/22/2023 Orders Only [facility] MEDICINE [address] [place], [place] [phone] Shereen Latham MD 230 [place], [place] [phone] Vitamin D deficiency Social History Tobacco Use [...] 2:00 PM EDT Clinical Support [facility] DIABETES/NUTRITION [address] [place] [address] Ernestina Esteban, KATE [address] [place] [address] 02/17/2025 2:30 PM EDT Office Visit [facility] ADULT DENTAL [address] [place] [address] Isa De La Rosa, DDS [address] [place] [address] 03/29/2025 2:00 PM EDT Office Visit [facility] ADULT DENTAL [address] [place] [address] Jenny Gordon [address] [place] [address] documented as of this encounter Visit Diagnoses Diagnosis Vitamin D deficiency documented in this encounter Additional Health Concerns Assessment Noted Time PHQ-9 Depression Total Score: 21 023 10:42 AM EST documented as of this encounter Care Teams Auto Clutch Rebuilder Relationship Specialty Start Date End Date Shereen Latham MD [address] [place] [address] PCP - General Family Medicine 11/02/18 Nupur Bullock, CharleneD [address] [place] [address] Pharmacist Internal Medicine 08/09/24 Sury Benitez [address] [place] [address] Pulmonary Disease 09/27/24 Nirali Madrid OD [address] [place] [address] Optometry 10/27/24 Li Grande MD [address] [place] [address] Hematology and Oncology 10/27/24 Anselmo Gates MD [facility] 203 [place] [address] Orthopaedic Surgery 10/27/24 Margaret Holman [address] [facility] 3rd [place] [address] Cardiology 10/27/24 Herberth Stokes MD 11 [facility] 3rd [place] [address] Gastroenterology 10/27/24 Pily Delaney Manager AppointmentPrincipal Architectural Firm 07/22/24 Elie Vicky [facility] 12/29/24 documented as of this encounter
--- OUTSIDE RECORDS SUMMARY | 2025-02-02 07:58 | XMS_ITS | Encounter Summary ---
Author Organization [employer] Address 75 [facility] 7t [place] [address] [address] Team Providers Care [address] Light Servicer Helper Name Role Phone Shereen Latham MD Primary Care Provider [phone] Nupur Bullock PharmD Unavailable Sury Benitez Unavailable [phone] Nirali Madrid OD Unavailable Li Grande MD Unavailable [phone] Anselmo Gates MD Unavailable Margaret Holman Unavailable Herberth Stokes MD Unavailable [phone] Encounter Details Date Type Department Care Team (Late st Contact Info) Description 05/02/2024 Orders Only [facility] MEDICINE [address] [place], [place] [phone] Shereen Latham MD 230 [place], [place] [phone] Gout, unspecified cause, unspecified chronicity, unspecified site [...] 2:00 PM EDT Clinical Support [facility] DIABETES/NUTRITION [address] [place] [address] [place] [address] 02/17/2025 2:30 PM EDT Office Visit [facility] ADULT DENTAL [address] [place] [address] Paz-Connor, Isa, DDS [address] [place] [address] 03/29/2025 2:00 PM EDT Office Visit [facility] ADULT DENTAL [address] [place] [address] Jeramie Gordonaris [address] [place] [address] documented as of this encounter Visit Diagnoses Diagnosis Gout, unspecified cause, unspecified chronicity, unspecified site- Primary documented in this encounter Additional Health Concerns Assessment Noted Time PHQ-9 Depression Total Score: 23 024 1:45 PM EDT documented as of this encounter Care Teams Street Light Servicer Helper Relationship Specialty Start Date End Date Shereen aLtham MD [address] [place] [address] PCP - General Family Medicine 11/02/18 Nupur Bullock, CharleneD 230 [place] [address] Pharmacist Internal Medicine 08/09/24 Sury Bentiez [address] [place] [address] [facility] [address] [place] [address] Pulmonary Disease 09/27/24 Nirali Madrid OD [address] [place] [address] Optometry 10/27/24 Li Grande MD [address] [place] [address] Hematology and Oncology 10/27/24 Anselmo Gates MD [address] [place] [address] Orthopaedic Surgery 10/27/24 Margaret Holman [address] 3rd [place] [address] Cardiology 10/27/24 Herberth Stokse MD 11 [facility] 3rd [place] [address] Gastroenterology 10/27/24 Pily Delaney New Business ClerkFleet Maintenance Foreman 07/22/24 Elie Vicky [facility] Psychology 12/29/24 documented as of this encounter
--- OUTSIDE RECORDS SUMMARY | 2025-02-02 07:58 | XMS_ITS | Encounter Summary ---
Author Organization [employer] Address [address] [facility] 7t [place] [address] Care Team Providers Care Housesmith Name Role Phone Shereen Latham MD Primary Care Provider [phone] Nupur Bullock PharmD Unavailable Sury Benitez Unavailable [phone] Nirali Madrid OD Unavailable [phone] Li Grande MD Unavailable [phone] Anselmo Gates MD Unavailable Margaret Holman Unavailable Herberth Stokes MD Unavailable [phone] Reason for Visit * Reason Comments Med Refill Encounter Details Date Type Department Care Team (Late st Contact Info) Description 06/21/2024 Refill [facility]S [address] [place], [place] [phone] Shereen Latham MD 230 [place] [address] Mild intermittent asthma, unspecified whether complicated; Pain [...] 02/13/2025 2:00 PM EDT Clinical Support [facility] DIABETES/NUTRITION [address] [place] [address] Ernestina Esteban, RD 230 [place] [address] 02/17/2025 2:30 PM EDT Office Visit [facility] ADULT DENTAL [address] [place] [address] Paz-Connor, Isa, DDS [address] [place] [address] 03/29/2025 2:00 PM EDT Office Visit [facility] ADULT DENTAL [address] [place] [address] Heidi, Jenny [address] [place] [address] documented as of this encounter Visit Diagnoses Diagnosis Mild intermittent asthma, unspecified whether complicated Pain Generalized pain documented in this encounter Additional Health Concerns Assessment Noted Time PHQ-9 Depression Total Score: 13 024 4:53 PM EDT documented as of this encounter Care Teams Housesmith Relationship Specialty Start Date End Date Shereen Latham MD 230 [place] [address] PCP - General Family Medicine 11/02/18 Nupur Bullock PharmD [address] [place] [address] Pharmacist Internal Medicine 08/09/24 Sury Benitez [address] [place] [address] [place] [address] [place] [address] Pulmonary Disease 09/27/24 Nirali Madrid OD [address] [place] [address] Optometry 10/27/24 Li Grande MD [address] [place] [address] Hematology and Oncology 10/27/24 Anselmo Gates MD [address] [place] [address] Orthopaedic Surgery 10/27/24 Margaret Holman [address] [place] [address] Cardiology 10/27/24 Herberth Stokes MD [address] [place] [address] Gastroenterology 10/27/24 Pily Delaney Regional GuideSpecial Education Resource Teacher 07/22/24 Elie Vicky [facility] Psychology 12/29/24 documented as of this encounter
--- OUTSIDE RECORDS SUMMARY | 2025-02-02 07:59 | XMS_ITS | Encounter Summary ---
Author Organization [employer] Address [address] [facility] 7t [place] [address] Care Team Providers Care Waste Collector Name Role Phone Shereen Latham MD Primary Care Provider [phone] Nupur Bullock PharmD Unavailable Sury Benitez Unavailable [phone] Nirali Madrid OD Unavailable [phone] Li Grande MD Unavailable [phone] Anselmo Gates MD Unavailable Margaret Holman Unavailable Herberth Stokes MD Unavailable [phone] Reason for Visit * Reason Comments Med Refill Encounter Details Date Type Department Care Team (Late st Contact Info) Description 12/02/[address] [facility] MEDICINE 230 [place], [place] [phone] Shereen Latham MD [address] [place], [place] [phone] Wheeze (Primary Dx); Pain Social History Tobacco [...] Description 02/13/2025 2:00 PM EDT Clinical Support [facility] DIABETES/NUTRITION 230 [place] [address] Sarkisjohnymallory Ernestina, RD 230 [place] [address] 02/17/2025 2:30 PM EDT Office Visit [facility] ADULT DENTAL 230 [place] [address] Paz-Connor, Isa, DDS 230 [place] [address] 03/29/2025 2:00 PM EDT Office Visit [facility] ADULT DENTAL 230 [place] [address] Heidi, Jenny 230 [place] [address] documented as of this encounter Visit Diagnoses Diagnosis Wheeze- Primary Wheezing Pain Generalized pain documented in this encounter Care Teams Waste Collector Relationship Specialty Start Date End Date Shereen Latham MD 230 [place] [address] PCP - General Family Medicine 11/02/18 Nupur Bullock PharmD [address] [place] [address] Pharmacist Internal Medicine 08/09/24 Sury Benitez [address] [place] [address] [place] [address] [place] [address] Pulmonary Disease 09/27/24 Nirali Madrid OD [address] [place] [address] Optometry 10/27/24 Li Grande MD [address] [place] [address] Hematology and Oncology 10/27/24 Anselmo Gates MD [address] [place] [address] Orthopaedic Surgery 10/27/24 Margaret Holman [address] [place] [address] Cardiology 10/27/24 Herberth Stokes MD [address] [place] [address] Gastroenterology 10/27/24 Pily Delaney Marine Steam FitterCalculator Operator 07/22/24 Elie Vicky [facility] Psychology 12/29/24 documented as of this encounter
--- OUTSIDE RECORDS SUMMARY | 2025-02-02 07:59 | XMS_ITS | Clinical Summary ---
Author Organization [employer] Address [address] [facility] [address] [place] [address] Care Team Providers Care Electrophysiology Tech Name Role Phone Shereen Latham MD Primary Care Provider [phone] Nupur Bullock PharmD Unavailable Sury Benitez Unavailable [phone] JuliusNirali castellanos OD Unavailable Li Grande MD Unavailable [phone] Anselmo Gates MD Unavailable Margaret Holman Unavailable Herberth Stokes MD Unavailable [phone] Allergies Active Allergy Reactions Criticality Noted [...] 04/21/24 with uric acid 7.9 -Seen by field sales associate Dr. Bernstein 05/11/24 or evaluation of acute gout affecting left foot. -Pt admitted 07/25/24-07/2524 for swelling, pain, and warmth in the right knee. Patient had a low fever (100.3 F) and elevated WBC (30205 cells/uL), CRP, and ESR. Orthopedic surgery consulted [...] reach serum uric acid level <6 mg/dL(2020 [employer] guideline for the management [...] 04/21/24 with uric acid 7.9 -Seen by field sales associate Dr. Bernstein 05/11/24 or evaluation of acute gout affecting left foot. -Pt admitted 07/25/24-07/2524 for swelling, pain, and warmth in the right knee. Patient had a low fever (100.3 F) and elevated WBC (60816 cells/uL), CRP, and ESR. Orthopedic surgery consulted [...] reach serum uric acid level <6 mg/dL(2020 [place] guideline for the management [...] reach serum uric acid level <6 mg/dL(2020 [place] guideline for the management [...] ON 08/24/2024 9:45 AM BY JOLIE PA [facility] (07/25/2024 - 07/27/2024) Patient presented with swelling, pain, and warmth in the right knee. Patient had a low fever (100.3 F) and elevated WBC (98708 cells/uL), CRP, and ESR. Orthopedic surgery consulted [...] by mouth once daily for 5 days. [facility] ED (08/07/2024) Patient [...] of breath) 06/29/2024 Overview (12/29/2024): -Followed by [facility] Pulmonology with Sury Benitez NP [...] Plan (12/29/2024 11:03 AM EST): -Followed by [facility] Pulmonology with Sury Benitez NP [...] if needed. -pt reports she saw her diesel engine fitter and is continuing management with them. . Assessment & Plan (07/13/2024 2:15 PM EDT): -referred to pulmonology 06/29/24 -Pt reports she has appt to see diesel engine fitter 08/01/24 Assessment & Plan (06/29/2024 4:49 PM [...] failure with reduced EF during admission to [facility] 06/22/24. - She was started [...] effusion and indeterminate diastolic function -Seen by [facility] Cardiology 08/01/24 : exercise nuclear [...] with reduced EF during recent admission to [facility] 06/22/24. Pt was volume overloaded [...] with reduced EF during recent admission to [facility] 06/22/24. Pt was volume overloaded [...] failure with reduced EF during admission to [facility] 06/22/24. - She was started [...] effusion and indeterminate diastolic function -Seen by [facility] Cardiology 08/01/24 : exercise nuclear [...] failure with reduced EF during admission to [facility] 06/22/24. - She was started [...] effusion and indeterminate diastolic function -Seen by [facility] Cardiology 08/01/24 : exercise nuclear [...] Complex care coordination 01/11/2024 Overview (01/11/2024): -Has SOLUTION DIRECTOR services with [facility] -She is applying [facility] 01/11/2024 -In our C3 complex care management program -referred to [facility] on 01/04/2024 -Messaged sent to care services manager for assistance in care visits Assessment & Plan (12/29/2024 10:21 AM EST): -Has SOLUTION DIRECTOR services with [facility] -She is applying [facility] 01/11/2024 -In our C3 complex care management program -referred to [facility] on 01/04/2024 -Messaged sent to C3 care services manager for assistance in care visits Assessment & Plan (08/24/2024 9:19 AM EDT): -Has SOLUTION DIRECTOR services with [facility] -She is applying [facility] 01/11/2024 -In our complex care management program -referred to [facility] on 01/04/2024 -Messaged sent to C3 care services manager for assistance in care visits Assessment & Plan (06/29/2024 4:06 PM EDT): -Has SOLUTION DIRECTOR services with [facility] -Leonora is applying [facility] 01/11/2024 -In our complex care management program -referred to [facility] on 01/04/2024 -Messaged sent to C3 care services manager for assistance in care visits Assessment & Plan (01/11/2024 9:30 AM EDT): -Has SOLUTION DIRECTOR services with [facility] -Leonora is applying [facility] 01/11/2024 -In our complex care management program -referred to [facility] on 01/04/2024 -Messaged sent to C3 care services manager for assistance in care visits Generalized anxiety [...] Pain Management team and will reconnect with [facility]. Information given to patient. PLAN: (check [...] intervention , Patient to reach out to [facility] team as needed, and Patient [...] for transfusion - Iron infusions ordered by Wire Rope Fabrication Supervisor DR. Grande - She recieved two sessions [...] for transfusion - Iron infusions ordered by Wire Rope Fabrication Supervisor DR. Grande - She recieved two sessions [...] for transfusion - Iron infusions ordered by Wire Rope Fabrication Supervisor DR. Grande - She recieved two sessions [...] for transfusion - Iron infusions ordered by Wire Rope Fabrication Supervisor DR. Grande - She recieved two sessions [...] lynnelulu back by: Janett Ortega Person calling: [employer] Date:06/16/24 Time: 1218 Saw CDTM on 08/16/24 [...] pedro back by: Janett Ortega Person calling: [employer] Date:06/16/24 Time: 1218 Assessment & Plan (07/29/2023 4:34 PM EDT): Received magnesium IV in ER -Dose increased to TID - Recheck in 2 weeks Other specified health status 07/20/2023 Overview (07/11/2024): -next physical exam due after 06/29/25 -eye care facilitated by [facility] -dental home is [facility] -health care proxy filed 06/29/24 Assessment & Plan (06/29/2024 4:03 PM EDT): -next physical exam due after 06/29/25 -eye care facilitated by [facility] -dental home is [facility] -health care proxy given and filed [...] on scene within 10 minutes, transfer completed [facility] ER called with [...] had ultrasound sound for abdominal pain at [facility] revealing diffusely echogenic parenchyma with [...] had ultrasound sound for abdominal pain at [facility] revealing diffusely echogenic parenchyma with [...] had ultrasound sound for abdominal pain at [facility] revealing diffusely echogenic parenchyma with [...] had ultrasound sound for abdominal pain at [facility] revealing diffusely echogenic parenchyma with [...] had ultrasound sound for abdominal pain at [facility] revealing diffusely echogenic parenchyma with [...] sound for abdominal pain at [facility] Ultrasound showed diffusely echogenic parenchyma with focal [...] referred to [facility] for Support and Recovery but has not [...] subsequently declined -Admitted for alcohol detox at [facility] 04/09/24 -reports she is currently [...] referred to [facility] for Support and Recovery but has not [...] subsequently declined -Admitted for alcohol detox at [facility] 04/09/24 -reports she is currently [...] [facility] but has [...] subsequently declined -Admitted for alcohol detox at [facility] 04/09/24 -reports she is currently [...] phenobarb improved her symptoms, patient declined life care planner help to place her in rehab, is [...] phenobarb improved her symptoms, patient declined life care planner help to place her in rehab, is [...] type, invasive tumor 2.2 cm ER positive, VT positive, HER-2/RON negative, two sentinel nodes negative. -S/[facility] Oct, completed [...] type, invasive tumor 2.2 cm ER positive, VT positive, HER-2/RON negative, two sentinel nodes negative. -S/p RIGHT [facility] started Oct, completed [...] type, invasive tumor 2.2 cm ER positive, VT positive, HER-2/RON negative, two sentinel nodes negative. -S/p RIGHT [facility] started Oct, completed [...] type, invasive tumor 2.2 cm ER positive, VT positive, HER-2/RON negative, two sentinel nodes negative. -S/p RIGHT [facility] started Oct, completed [...] type, invasive tumor 2.2 cm ER positive, VT positive, HER-2/RON negative, two sentinel nodes negative. -S/p RIGHT [facility] started Oct, completed [...] type, invasive tumor 2.2 cm ER positive, VT positive, HER-2/RON negative, two sentinel nodes negative. -S/p RIGHT [facility] started Oct, completed [...] type, invasive tumor 2.2 cm ER positive, VT positive, HER-2/RON negative, two sentinel nodes negative. -S/p RIGHT [facility] started Oct, completed [...] type, invasive tumor 2.2 cm ER positive, VT positive, HER-2/RON negative, two sentinel nodes negative. -S/p RIGHT [facility] started Oct, completed [...] type, invasive tumor 2.2 cm ER positive, VT positive, HER-2/RON negative, two sentinel nodes negative. -S/p RIGHT [facility] started Oct, completed [...] to being premenopausal -last apt with Dr. Grnade 04/23/16. She had iron infusion at that [...] type, invasive tumor 2.2 cm ER positive, VT positive, HER-2/RON negative, two sentinel nodes negative. -S/p RIGHT [facility] started Oct, completed [...] Overview (06/28/2024): Lab Results Component Value Date [id number] 58.3 06/16/2024 [id number] 106.4 01/04/2024 [id number] 76.8 09/22/2023 Assessment & Plan (06/29/2024 3:39 PM EDT): Lab Results Component Value Date [id number] 58.3 06/16/2024 [id number] 106.4 01/04/2024 [id number] 76.8 09/22/2023 Assessment & Plan (12/14/2023 12:09 PM EST): Lab Results Component Value Date [id number] 76.8 09/22/2023 -Labs ordered for further evaluation: Vitmain D, 25-hydroxy, Total, Immunoassay. 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 Per Dr. Krish Loomis's note from [facility] CEMENT TRUCK DRIVER, pt was due for repeat colposcopy in [...] CIN2-3. Per Dr. Krish Loomis's note from [facility] CEMENT TRUCK DRIVER, pt was due for repeat colposcopy in [...] CIN2-3. Per Dr. Krish Loomis's note from [facility] CEMENT TRUCK DRIVER, pt was due for repeat colposcopy in [...] CIN2-3. Per Dr. Krish Loomis's note from [facility], pt was due for repeat colposcopy [...] Health Integration Plan Internal Follow up with [facility] Patient Self Plan Patient to utilize skills provided in intervention , Patient to reach out to [facility] team as needed, Patient to reach out to [facility] as needed, and will contact [facility] Intake number to connect with [employer] continuous churn OP services, and psychiatrist. Rule Out Diagnoses: [...] as pharmacomtherapy, [facility] smoking cessation group, and [facility] pharmacy smoking cessation clinic Discussed USPSTF recommends [...] as pharmacomtherapy, [facility] smoking cessation group, and [facility] pharmacy smoking cessation clinic Discussed USPSTF recommends [...] as pharmacomtherapy, [facility] smoking cessation group, and [facility] pharmacy smoking cessation clinic Discussed USPSTF recommends [...] as pharmacomtherapy, [facility] smoking cessation group, and [facility] pharmacy smoking cessation clinic Discussed USPSTF recommends [...] as pharmacomtherapy, [facility] smoking cessation group, and [facility] pharmacy smoking cessation clinic Discussed USPSTF recommends [...] flare 05/11/2024 12/29/2024 Overview (07/13/2024): Seen by field sales associate Dr. Bernstein 05/11/24 or evaluation of acute [...] Plan (07/13/2024 2:21 PM EDT): Seen by field sales associate Dr. Bernstein 05/11/24 or evaluation of acute [...] EDT): Patient requesting a Physical for her SOLUTION DIRECTOR hours to be re-instated. On exam today, her vitals are stable and her exam seems unchanged from previous one. Work up in progress for her c/o bilateral foot pain Hospital discharge follow-up 06/18/2023 07/20/2023 Assessment & Plan (07/14/2023 10:23 AM EDT): Patient here for a HDF. She was admitted to [facility] from 06/05-06/08 . [...] Hyperaldosteronism 11/16/2022 3 Overview (11/16/2022): Seen by [facility] 04/03/2022. Initially seen 12/2021 for hyperaldosteronism. Labs [facility] 10/2021 aldosterone 8, plasma renin 0.11, aldosterone/renin 72.7. She was likely on spironolactone and lisinopril at time of labs. Advise no spironolactone for 6 weeks and recheck renin aldosterone levels with renal panel and magnesium in robotic weld technician. Assessment & Plan (11/16/2022 10:55 AM EST): Seen by [facility]ocr[facility] 04/03/2022. Initially seen 12/2021 for hyperaldosteronism. Labs [facility] 10/2021 aldosterone 8, plasma renin 0.11, aldosterone/renin 72.7. She was likely on spironolactone and lisinopril at time of labs. Advise no spironolactone for 6 weeks and recheck renin aldosterone levels with renal panel and magnesium in robotic weld technician. Anxiety 04/19/2014 01/28/2024 Encounters Date Type Department Care Team Description 01/27/2025 Orders Only [facility] [address] [place] [id number] Shereen Latham MD History of right breast cancer (Primary Dx) 01/27/2025 Orders Only [facility] [address] [place] [address] Shereen Latham MD Hypomagnesemia (Primary Dx) 01/24/2025 1:00 PM EDT Clinical Support [facility] [address] [place] [address] History of chronic CHF (Primary Dx) 01/24/2025 Telephone [facility] [address] [place] [address] Shereen Latham MD Medication Question 01/24/2025 Travel 01/19/2025 Orders Only [address] [address] Stacey Khan MD Women's annual routine gynecological examination (Primary Dx) 01/19/2025 Orders Only [address] [address] Stacey Khan MD Breast pain, left (Primary Dx) 01/17/2025 3:00 PM EDT Nutrition [facility] [address] [place] [address] History of chronic CHF 01/17/2025 Refill [facility] [address] [place] [address] Shereen Latham MD Pain 01/17/2025 Travel 01/17/2025 Refill [facility] [address] [place] [address] Mayda Rush MD Pain 01/16/2025 Telephone [facility] [address] [place] [address] Shereen Latham MD Appointment Request 01/13/2025 Population Health Risk Score [facility] [address] [place] [phone] Provider, Population Health Generic 01/12/2025 Refill [facility] [address] [place] [address] Shereen Latham MD Benign essential hypertension 01/09/[address] [address] Shereen Latham MD Gastroesophageal reflux disease, unspecified whether esophagitis present; Vitamin D deficiency; Nasal congestion 01/03/[address] [address] Shereen Latham MD Referral 12/29/2024 10:30 AM EST Office Visit [address] [address] Shereen Latham MD History of right breast [...] coordination; Tubular adenoma of colon 12/29/[address] [address] Shereen Latham MD Results 12/29/2024 Orders Only [address] [address] Shereen Latham MD Gout, unspecified cause, unspecified chronicity, unspecified site 12/29/2024 Orders Only GENERIC EXTERNAL DATA DEPARTMENT Provider, Generic External Data 12/29/2024 Travel 12/22/[address] [address] Shereen Latham MD Durable Medical Equipment; chartprep 12/22/[address] [address] Shereen Latham MD Nurse Triage 12/21/2024 3:30 PM EST Telemedicine [address] [address] Nupur Bullock PharmD Preventative health care (Primary Dx) 12/21/2024 Travel 12/21/2024 Refill [facility] [address] [place] [address] Shereen Latham MD Pain 12/20/2024 Orders Only [facility] External Provider, [facility] 12/14/2024 Travel 12/12/2024 Patient Outreach [facility] [address] [place] [address] Shereen Latham MD Transition Of Care (Tcm) 12/10/2024 Orders Only GENERIC EXTERNAL DATA DEPARTMENT Provider, Generic External Data 12/09/[address] [address] Shereen Latham MD Nurse Triage 12/07/[address] [address] Shereen Latham MD ER Follow-up 12/06/2024 Orders Only GENERIC EXTERNAL DATA DEPARTMENT Provider, Generic External Data 12/03/2024 Travel 11/25/2024 Orders Only [address] [address] Shereen Latham MD Vaginal lesion (Primary Dx) 11/23/2024 3:30 PM EST Telemedicine [address] [address] Nupur Bullock PharmD Benign essential hypertension (Primary Dx) 11/23/[address] [address] Shereen Latham MD Referral 11/22/2024 Refill [facility] [address] [place] [address] Shereen Latham MD Pain 11/22/2024 Patient Outreach [facility] [address] [place] [address] Shereen Latham MD Transition Of Care (Tcm) 11/18/2024 Telephone [facility] [address] [place] [address] Violetta Mackey MA Breast Cancer Screening 11/17/2024 2:40 PM EST Office Visit [facility] [address] [place] [address] Shereen Latham MD Benign essential hypertension (Primary Dx); Depression with anxiety 11/17/2024 Travel 11/17/[address] [address] Shereen Latham MD Nurse Triage 2024 Travel 11/10/[address] [address] Shereen Latham MD Nurse Triage 11/10/[address] [address] Shereen Latham MD Benign essential hypertension 11/09/2024 11:30 AM EST Office Visit [address] [address] Shereen Latham MD Gout of foot, unspecified cause, unspecified chronicity, unspecified laterality (Primary Dx); Mild intermittent reactive airway disease without complication; Benign essential hypertension; Severe episode of recurrent major depressive disorder, with psychotic features (CMS/HCC); Alcohol use disorder, moderate, dependence (CMS/HCC); Dietary counseling; Exercise counseling; Overweight; Hypomagnesemia; Anemia, unspecified type; Cardiac risk counseling; History of right breast cancer 11/09/2024 Travel 11/08/2024 Telephone [facility] [address] [place], [place] [phone] Laura Cifuentes MD 11/08/2024 Orders Only [address] [address] Shereen Latham MD Iron deficiency anemia, unspecified iron deficiency anemia type (Primary Dx) from Last 3 Months Immunizations [...] Description 02/13/2025 2:00 PM EDT Clinical Support [facility] [address] [place] [address] Ernestina Esteban, RD [address] [place] [address] 02/17/2025 2:30 PM EDT Office Visit [facility] [address] [place] [address] Paz-Connor, Isa, DDS [address] [place] [address] 03/29/2025 2:00 PM EDT Office Visit [facility] [address] [place] [address] Heidi, Jenny [address] [place] [address] Health Maintenance Due Date Last Done Comments CT Colonography 1973 FIT 1973 FOBT 1973 Sigmoidoscopy 1973 Dental X-Ray: Full Mouth 07/07/2022 07/06/2019 Zoster Vaccines (1 of 2) 2023 Mammogram 08/27/2024 08/27/2023, 12/1 , 09/09/2019 Dental Oral Exam 12/19/2024 06/17/2024, 07/06/2019 [...] 08/11/2020 (Patient Refused) COVID-19 Vaccine (2 - 2023- season) 2025 02/09/2021 Postponed from 07/03/2024 (Patient [...] 75+ series) 2048 IPV Vaccines Completed 07/05/1981, 070 04/1980, 08/24/1978, Additional history exists HPV/Cotest Discontinued [...] Dimer High Sensitivity (01/19/2025 4:33 PM EDT) [facility] D Dimer High Sensitivity <150 NG/ML [facility] Comment:D-DIMER HS REFERENCE RANGENote: Our [...] ORDERAB LES Final Result Performing Organization Address [facility] Co de Phone Number [facility] [address] [place] [phone] * High Sensitivity Troponin I (01/19/2025 4:33 PM EDT) Only the most recent of2 resultswithin the time period is included. [facility] TROPONIN I HIGH SENSITIVITY 7.8 <3.5 - 17.0 ng/L [facility] Comment:The Henriquez high sens itivity Troponin-I results should beused in conjunction with other diagnostic information suchas ECG, clinical observations and information, and patientsymptoms to aid in the diagnosis of [place]. 01/19/2025 4:33 PM EDT 01/19/2025 4:34 PM EDT us Generic External Data Provider LAB BLOOD ORDERAB LES Final Result Performing Organization Address [facility] Co de Phone Number [facility] [address] [place] [phone] * B Type Natriuretic Peptide (BNP) (01/19/2025 4:33 PM EDT) Only the most recent of2 resultswithin the time period is included. [facility] B Type Natriuretic Peptide 22 <100 pg/mL [facility] 01/19/2025 4:33 PM EDT 01/19/2025 4:34 PM EDT us Generic External Data Provider LAB BLOOD ORDERAB LES Final Result [facility] [address] [place] [address] [phone] * (ABNORMAL) CBC auto differential (12/29/2024 10:53 AM EST) Only the most recent of4 resultswithin the time period is included. [facility] White Blood Count 13.5(H) 4.8 - 10.8 X10*3/uL [facility] Red Blood Count 3.97(L) 4.20 - 5.50 X10*6/uL [facility] Hemoglobin 11.4(L) 12.0 - 16.0 g/dl [facility] Hematocrit 36.4(L) 37.0 - 47.0 % [facility] Mean Corpuscular Volume 91.7 80.0 - 98.0 fL [facility] Mean Corpuscular Hemoglobin 28.7 27.0 - 33.0 pg [facility] Mean Corpuscular HGB Conc 31.3 31.0 - 35.0 g/dl [facility] Red Cell Distribution Width 14.8 11.0 - 16.0 % [facility] Platelet Count 370 160 - 400 X10*3/uL [facility] Mean Platelet Volume 10.2 9.4 - 12.3 fL [facility] Neutrophils Percent Auto 70.1 45 - 73 % [facility] Imm Gran Pct Auto 1.8(H) 0.0 - 0.4 % [facility] Lymphocytes Percent Auto 18.9(L) 20 - 40 % [facility] Monocytes Percent Auto 7.8 2 - 11 % [facility] Eosinophils Percent Auto 0.7 0 - 4 % [facility] Basophils Percent Auto 0.7 0 - 2 % [facility] NRBC Pct Auto 0.0 0.0 - 0.2 /100WBC [facility] Neutrophils Absolute Auto 9.5(H) 2.0 - 8.3 x10*3/uL [facility] Imm Gran Abs Auto 0.25(H) 0.00 - 0.03 X10*3/uL [facility] Lymphocytes Absolute Auto 2.6 1.2 - 4.9 X10*3/uL [facility] Monocytes Absolute Auto 1.1 0.1 - 1.2 X10*3/uL [facility] Eosinophils Absolute Auto 0.1 0.0 - 0.4 X10*3/uL [facility] Basophils Absolute Auto 0.1 0.0 - 0.2 X10*3/uL [facility] NRBC Abs Auto 0.000 0.0 - 0.012 X10*3/uL [facility] 12/29/2024 10:5 3 AM EST 12/29/2024 1:06 PM EST us Generic External Data Provider LAB BLOOD ORDERAB LES Final Result [facility] [address] [place] [address] [phone] * (ABNORMAL) Uric acid (12/29/2024 10:53 AM EST) Uric Acid 5.8(H) 2.4 - 5.7 mg/dL [facility] Blood Venous blood specimen / Unknown 12/29/2024 10:53 AM EST 12/29/2024 1:06 PM EST us Shereen Latham MD LAB BLOOD ORDERABLES Final Result Performing Organization Address City/[facility]/ZIP Co de Phone Number [facility] [address] [place] [address] [phone] * Magnesium (12/29/2024 10:53 AM EST) Only the most recent of3 resultswithin the time period is included. Magnesium 1.8 1.6 - 2.6 mg/dL [facility] Blood Venous blood specimen / Unknown 12/29/2024 10:53 AM EST 12/29/2024 1:06 PM EST Shereen Latham MD LAB BLOOD ORDERABLES Final Result Performing Organization Address [facility] de Phone Number [facility] [address] [place] [phone] * (ABNORMAL) Lipid Panel, Standard (12/29/2024 10:53 AM EST) Triglycerides 192(H) <150 mg/dL [facility] Comment:Desirable Triglyceri de: less than 150 mg/dLBorderline High Triglyceride 150-199 mg/dLHigh Triglyceride: 200-499 mg/dLVery High Triglyceride: greater than or equal to 5OO mg/dL Cholesterol 197 <200 mg/dL [facility] Comment:Desirable Cholestero l: less than 200 mg/dLBorderline High Cholesterol: 200-239 mg/dLHigh Cholesterol: greater than 239 mg/dL LDL Cholesterol Calculated 111(H) <100 mg/dL [facility] Comment:Desirable LDL: less than 100 mg/dLNear Optimal/Above Optimal LDL: 110- 129 mg/dLBorderline High LDL: 130-159 mg/dLHigh LDL: 160-189 mg/dLVery High LDL: greater than or equal to 190 mg/dL HDL Cholesterol 48 >40 mg/dL [facility] Comment:Desirable HDL: great er than 40 mg/dL Note: This HDL assay may give artificially low results in patients with liver disease. Blood Venous blood specimen / Unknown 12/29/2024 10:53 AM EST 12/29/2024 1:06 PM EST Shereen Latham MD LAB BLOOD ORDERABLES Final Result Performing Organization Address [facility] Co de Phone Number [facility] [address] [place] [phone] * (ABNORMAL) Basic Metabolic Panel (12/29/2024 10:53 AM EST) Sodium 139 135 - 145 mmol/L [facility] Potassium 4.1 3.3 - 5.1 mmol/L [facility] Chloride 105 96 - 108 mmol/L [facility] Carbon Dioxide 23 22 - 29 mmol/L [facility] Anion Gap 15 12 - 20 [facility] Urea Nitrogen (BUN) 32(H) 9 - 16 mg/dL [facility] Creatinine, Serum 0.91 0.5 - 1.4 mg/dL [facility] Estimated Glomerular Filt Rate >60 [facility] Comment:Chronic Kidney Disea se: Estimated GFR < 60 mL/min/1.72r2Lzgiyb Kidney Disease: Estimated GFR < 15 mL/min/1.73m2 Glucose 161(H) 60 - 115 mg/dL [facility] Calcium 9.3 8.4 - 10.2 mg/dL [facility] Blood Venous blood specimen / Unknown 12/29/2024 10:53 AM EST 12/29/2024 1:06 PM EST Shereen Latham MD LAB BLOOD ORDERABLES Final Result Performing Organization Address [facility]/State/[facility] Co de Phone Number [facility] [address] [place] [address] [phone] * XR Knee 1-2 Views Right (12/20/2024 7:45 AM EST) Anatomical Region Laterality Modality Lower Extremities, Knee Right Radiogra phic Imaging 12/20/2024 7:45 AM EST Narrative 12/20/2024 8:20 AM EST ? [facility] ?[address] ?[place] [address] ?XRay Report ? Signed ? Patient: Cast,Azra ?MR#: [id number] ?? 3774 ? : 1975 ?Acct:[id number] ? Age/Sex: 49 / F ?ADM Date: 02/18/25 ? Loc: HO.ED ? Attending Dr: ? Ordering Physician: Boby Dykes MD ?? Date of Service: 12/20/24 ?? Procedure(s): XR knee RT 2V ?? Accession Number(s): [id number] ? cc: Shereen Latham MD; Boby Dykes [...] DD/ 0745 ? TD/TT: 12/20/24 0751 ? Steel Erector Apprentice: ? Procedure Note Gypsy Jonas - 12/20/[address] [address] XRay Report Signed Patient: Maged Cast#: [id number] : 1975Acct:[id number] Age/Sex: 49 / FADM Date: 12/20/24 Loc: HO.ED Attending Dr: Ordering Physician: Boby Dykes MD Date of Service: 12/20/24 Procedure(s): XR knee RT 2V Accession Number(s): [id number] cc: Shereen Latham MD; Boby Dykes MD [...] 12/20/24 0817 DD/ 0745 TD/TT: 12/20/24 0751 Steel Erector Apprentice: [facility] External Provider IMG XR PROCEDURES Edited Result - Final * XR Chest 1 View (12/11/2024 12:34 AM EST) Anatomical Region Laterality Modality Chest Radiographic Celina ging 12/11/2024 12:3 4 AM EST Narrative 12/11/2024 12:37 AM EST ? [facility] ?[address] ?[place] [address] ?XRay Report ? Signed ? Patient: Cast,Azra ?MR#: [id number] ?? 3774 ? : 1975 ?Acct:[id number] ? Age/Sex: 49 / F ?ADM Date: 02/08/25 ? Loc: HO.ED ? Attending Dr: ? Ordering Physician: Sury Bustamante MD ?? Date of Service: 12/10/24 ?? Procedure(s): XR chest 1V ?? Accession Number(s): [id number] ? cc: Shereen Latham MD; Sury Bustamante MD ? CLINICAL HISTORY: chest pain cough ? 1 view chest x-ray ? Comparison: CR/VT - XR CHEST 2V - 10/31/24 17:50 [...] OV> ?12/11/246 ? DD/ 0034 ? TD/TT: 12/11/24 0034 ? Steel Erector Apprentice: ? Procedure Note Donellybestter, Image - 12/11/2024 [place] [address] XRay Report Signed Patient: Maged Cast#: [id number] : 1975Acct:[id number] Age/Sex: 49 / FADM Date: 12/10/24 Loc: HO.ED Attending Dr: Ordering Physician: Sury Bustamante MD Date of Service: 12/10/24 Procedure(s): XR chest 1V Accession Number(s): [id number] cc: Shereen Latham MD; Sury Bustamante MD CLINICAL HISTORY: chest pain cough 1 view chest x-ray Comparison: CR/VT - XR CHEST 2V - 10/31/24 17:50 EST Findings: No consolidation or effusion. Heart size is normal. No acute fracture. Right breast implant. IMPRESSION: 1. No acute cardiopulmonary findings. This document has been electronically signed by: Ashley Vazquez MD on 12/11/2024 00:34:57 Dictated By: Ashley Vazquez MD Signed By: <Electronically signed by Ashley Vazquez MD in OV> 12/11/246 DD/ TD/TT: 12/11/2433 Steel Erector Apprentice: [facility] External Provider IMG XR PROCEDURES Final Result * SARS-CoV-2 RNA, Influenza A/B, and RSV RNA, Ql NAAT (12/10/2024 11:48 PM EST) Only the most recent of2 resultswithin the time period is included. Influenza A PCR NEGATIVE Negative [facility] Influenza B PCR NEGATIVE Negative [facility] Resp Syncy Virus RNA Qual PCR NEGATIVE Negative [facility] SARS COV2 PCR NEGATIVE Negative [facility] Comment:All test results mus t be [...] use by authorized laboratories.Testing performed on the [employer] GeneXpert utilizingreal-time RT-PCR.All SARS CoV2 and positive influenza A/B results arereported to [facility]. 12/10/2024 11:4 8 PM EST 12/10/2024 11:53 PM EST us Generic External Data Provider LAB MICROBIOLOGY - GENERAL ORDERABLES Final Result [facility] [address] [place] [phone] * (ABNORMAL) Comprehensive Metabolic Panel (12/10/2024 11:48 PM EST) Only the most recent of3 resultswithin the time period is included. Pathologist [facility] Sodium 143 135 - 145 mmol/L [facility] Potassium 3.7 3.3 - 5.1 mmol/L [facility] Chloride 108 96 - 108 mmol/L [facility] Carbon Dioxide 23 22 - 29 mmol/L [facility] Anion Gap 16 12 - 20 [facility] Urea Nitrogen (BUN) 24(H) 9 - 16 mg/dL [facility] Creatinine, Serum 1.11 0.5 - 1.4 mg/dL [facility] Creatinine Clr Calc Pharmacy 69.3 [facility] Comment:Provided height and weight: 170.18 cm,90.7 kg.eGFR (calculated from the MDRD study equation) and eCrCl(calculated from the Cockcroft-Gault equation) are based ondifferent parameters and may not yield comparable results.If eCrCl result is absurd, please check patient'sheight/weight. Estimated Glomerular Filt Rate 52 [facility] Comment:Chronic Kidney Disea se: Estimated GFR < 60 mL/min/1.60u7Hejvmc Kidney Disease: Estimated GFR < 15 mL/min/1.73m2 Glucose 150(H) 60 - 115 mg/dL [facility] Calcium 9.3 8.4 - 10.2 mg/dL [facility] Bilirubin, Total 0.2 0.0 - 1.0 mg/dL [facility] Aspartate Amino Transferase 19 5 - 31 U/L [facility] Alanine Aminotransferase 14 0 - 31 U/L [facility] Total Protein 7.6 6.5 - 8.0 g/dL [facility] Albumin Level 4.0 3.5 - 5.0 g/dL [facility] Alkaline Phosphatase 87 39 - 117 U/L [facility] 12/10/2024 11:4 8 PM EST 12/10/2024 11:53 PM EST us Generic External Data Provider LAB BLOOD ORDERAB LES Final Result Performing Organization Address City/State/[facility] Co de Phone Number [facility] [address] [place] [phone] * CT Abdomen Pelvis w/ Contrast (12/06/2024 1:20 PM EST) Anatomical Region Laterality Modality Body, Pelvis, Abdomen Computed T omography 12/06/2024 1:20 PM EST Narrative 12/06/2024 2:00 PM EST ? [facility] ?[address] ?[place] [address] ? CT Scan Report ? Signed ? Patient: Cast,Azra ?MR#: [id number] ?? 3774 ? : 1975 ?Acct:[id number] ? Age/Sex: 49 / F ?ADM Date: 02/04/25 ? Loc: HO.ED ? Attending Dr: ? Ordering Physician: Leighann Ordonez DO ?? Date of Service: 12/06/24 ?? Procedure(s): CT abdomen pelvis w IV con ?? Accession Number(s): [id number] ? cc: Shereen Latham MD; Leighann Ordonez DO ? Report Number: ?? [id number]: Total DLP = ??712.00 mGy-cm ?? EXAMINATION: [...] Trejo MD ??12/06/2024 01:58 PM ?? EST ? Dictated By: ?Waldemar Reeves MD ? Signed By: ?<Electronically signed by Waldemar Escobar MD in OV> ? 12/06/24 1358 ? DD/ 1320 ? TD/TT: 12/06/24 1333 ? Steel Erector Apprentice: ? Procedure Note Gypsy Jonas - 12/06/[address] [address] [address] Scan Report Signed Patient: Maged Cats#: [id number] : 1975Acct:[id number] Age/Sex: 49 / FADM Date: 12/06/24 Loc: HO.ED Attending Dr: Ordering Physician: Leighann Ordonez DO Date of Service: 12/06/24 Procedure(s): CT abdomen pelvis w IV con Accession Number(s): [id number] cc: Shereen Latham MD; Leighann Ordonez DO Report Number: [id number]: Total DLP = 712.00 mGy-cm EXAMINATION: CT [...] 12/06/24 1358 DD/ 1320 TD/TT: 12/06/24 1333 Steel Erector Apprentice: [facility] External Provider IMG CT PROCEDURES Final Result * Urinalysis w/reflex microscopic (12/06/2024 11:14 AM EST) Color Urine Yellow [facility] Appearance Urine Clear [facility] PH 6.0 5.0 - 9.0 [facility] Glucose Urine UA Negative Negative mg/dL [facility] Urine Blood Negative Negative [facility] Specific [place] - Urine 1.025 1.005 - 1.025 [facility] Urine Protein Negative Neg-Trace mg/dL [facility] Urine Ketones Negative Negative mg/dL [facility] Nitrite Urine Negative Negative [facility] Leukocyte Esterase Urine Negative Negative [facility] 12/06/2024 11:1 4 AM EST 12/06/2024 11:18 AM EST Narrative [facility] - 12/06/2024 11:22 AM EST Urine, Clean Catch Generic External Data Provider LAB URINE ORDERAB LES Final Result [facility] [address] [place] [phone] * Lipase (12/06/2024 9:42 AM EST) Lipase 50 8 - 78 U/L [facility] 12/06/2024 9:42 AM EST 12/06/2024 9:45 AM EST Generic External Data Provider LAB BLOOD ORDERAB LES Final Result Performing Organization Address [facility] Phone Number [facility] [address] [place] [phone] * Iron And Total Iron Binding Capacity (11/08/2024 2:48 PM EST) Iron 66 30 - 160 mcg/dL [facility] Total Iron Binding Capacity 292 228 - 428 mcg/dL [facility] Percent Iron Saturation 23 15 - 50 % [facility] Unsaturated Iron Binding 226 ug/dL [facility] Blood Venous blood specimen / Unknown 11/08/2024 2:48 PM EST 11/08/2024 4:08 PM EST Shereen Latham MD LAB BLOOD ORDERABLES Final Result Performing Organization Address [facility] Phone Number [facility] [address] [place] [phone] * Immunoglobulin E (11/08/2024 2:48 PM EST) [facility] Immunoglobulin E 17 <LM=048 kU/L [facility] Comment:THIS TEST WAS PERFOR MED AT:[facility] [address] [phone] BRINK MD 11/08/2024 2:48 PM EST 11/08/2024 4:08 PM EST Generic External Data Provider LAB BLOOD ORDERAB LES Final Result Performing Organization Address [facility] de Phone Number [facility] [address] [place] [phone] * Ferritin (11/08/2024 2:48 PM EST) Pathologist [facility] Ferritin 180 10 - 250 ng/mL [facility] Blood Venous blood specimen / Unknown 11/08/2024 2:48 PM EST 11/08/2024 4:08 PM EST Shereen Latham MD LAB BLOOD ORDERABLES Final Result Performing Organization Address [facility] Co de Phone Number [facility] [address] [place] [phone] * Vitamin B12 (11/08/2024 2:48 PM EST) [facility] Vitamin B12 499 200 - 900 pg/mL [facility] Comment:NORMAL 200-900 PG/ML INDETERMINATE 160-199 PG/ML DEFICIENT < 160 PG/ML Blood Venous blood specimen / Unknown 11/08/2024 2:48 PM EST 11/08/2024 4:08 PM EST Shereen Latham MD LAB BLOOD ORDERABLES Final Result Performing Organization Address [facility] Co de Phone Number [facility] [address] [place] [phone] * (ABNORMAL) Hm Colonoscopy (07/11/2024) [facility] Colonoscopy Abnormal( A) Normal Comment:Herberth Stokes MD ?tubular adenoma x 3 Result [facility] Herberth Stokes MD HEALTH MAINTENANCE Final Result * Hepatitis Panel, General (06/16/2024 8:22 AM EDT) [facility] Hepatitis A IgM Nonreactive Nonreactive [facility] Comment:IgM antibodies to VIRAMONTES V not detected; does not exclude earlyacute or recovered HAV infection. ~Hepatitis B Surface Antibody REACTIVE Nonreactive [facility] Comment:REACTIVE: > 11.99 mI U/mL Hepatitis B Core Antibody Nonreactive Nonreactive [facility] Hepatitis C Antibody Nonreactive Nonreactive [facility] Comment:Antibodies to HCV no t detected; does not exclude early acuteHCV infection. Hepatitis B Surface Ag Negative Negative [facility] Blood Venous blood specimen / Unknown 06/16/2024 8:22 AM EDT 06/16/2024 11:18 AM EDT Shereen Latham MD LAB BLOOD ORDERABLES Final Result Performing Organization Address [facility] de Phone Number [facility] [address] [place] [phone] * HIV-1/2 Antigen and Antibodies, Fourth Generation, with Reflexes (02/24/2024 8:47 AM EDT) [facility] HIV AB/AG Nonreactive Nonreactive [facility] Comment:HIV-1 p24 Ag and/or HIV-1/HIV-2 Ab not detected.A test result that is nonreactive does not exclude thepossibility of exposure to or infection with HIV-1 and/orHIV-2. Nonreactive results in this assay for individualswith prior exposure to HIV-1 and/or HIV-2 may be due toantigen and antibody levels that are below the limit ofdetection of this assay.The RPO HIV Ag/Ab Combo assay result andsupplemental assay results should be interpreted inconjunction with the patient's clinical presentation,history and other laboratory results. If the results areinconsistent with clinical evidence, additional testing issuggested to confirm the result. Blood Venous blood specimen / Unknown 02/24/2024 8:47 AM EDT 02/24/2024 11:22 AM EDT Naomi ORDAZ LAB BLOOD ORDERABLES Final Resul t Performing Organization Address [facility] de Phone Number [facility] [address] [place] [phone] * BI Mammogram Screening Tomosynthesis Left (08/27/2023 1:00 PM EDT) Anatomical Region Laterality Modality Breast Left Mammography 08/27/2023 1:00 PM EDT Narrative 09/14/2023 6:06 AM EST ? [facility] [place] [facility] ? [address] ?[place] [address] ? Mammography Report ? Signed ? Patient: Cast,Azra ?MR#: [id number] ?? 3774 ? : 1975 ?Acct:[id number] ? Age/Sex: 47 / F ?ADM Date: 08/27/23 ? Loc: HO.MAMMO ? Attending Dr: Bhupinder Bennett MD ? Ordering Physician: Li Grande MD ?Results: 1Negat ?? dasia ? Date of Service: 08/27/23 ?Follow Up: 1 Year From Orig ?? inal Mammogram ? Procedure(s): MM tomosynthesis screening LT ?? Accession Number(s): [id number] ? cc: Bhupinder Bennett MD; Li Grande [...] 0602 ? DD/ 1300 ? TD/TT: ? Steel Erector Apprentice: ? Procedure Note Donellybestter, Image - 09/14/2023 [facility] [address] [place] [address] Mammography Report Signed Patient: Maged Cast#: [id number] : 1975Acct:[id number] Age/Sex: 47 / FADM Date: 08/27/23 Loc: CHICHIO Attending Dr: Bhupinder Bennett MD Ordering Physician: Li Grande MDResults: 1Negat dasia Date of Service: 08/27/23Follow Up: 1 Year From [facility] Mammogram Procedure(s): MM tomosynthesis screening Accession Number(s): [id number] cc: Bhupinder Bennett MD; Li Grande MD [...] in OV> 09/14/23 0602 DD/ 1300 TD/TT: Steel Erector Apprentice: [facility] External Provider IMG BI PROCEDURES Final Result * (ABNORMAL) Cologuard?? colon cancer screening (08/27/2023 11:24 AM EDT) Cologuard Result Positive( A) Negative 09/05/2023 10:16 PM EDT [facility] (CLIA #:[id number]) Comment: POSITIVE TEST RESULT. A positive Cologuard [...] (Felix Mccoy al, N Engl J Med 2014;370(14):1571-8377.) Cologuard may produce a false negative or false positive result (no colorectal cancer or precancerous polyp present at colonoscopy follow up). A negative Cologuard test result does not guarantee the absence of CRC or advanced adenoma (pre-cancer). The current Cologuard screening interval is every 3 years. ([place] [employer] Society and U.S. Multi-Society Task Force). Cologuard performance data in a 10,000 patient pivotal study using colonoscopy as the reference method can be accessed at the following location: www.[employer].Pocketbook/results. Additional description of the Cologuard test process, warnings and precautions can be found at www.InLight Solutionsrd.Pocketbook. Stool specimen (specimen) 08/27/2023 11:24 AM EDT 08/29/2023 6:48 AM EDT Shereen Latham MD LAB MOLECULAR DIAGNOSTICS ORDERABLES Final Result [facility] (CLIA #:[id number]) [address] [place] [address], * HPV mRNA E6/E7 (08/12/2018 10:57 AM EDT) HPV mRNA E6/E7 Not Detected NOT DETECTED [facility] Comment: This test was performed using the APTIMA(R) HPV Assay ([employer] This assay detects E6/E7 viral messenger RNA (mRNA) from 14 high-risk HPV types (16,18,31,33,35,39,45,51, 52,56,58,59,66,68). For additional information please refer to: http://education.Huango.cn.Pocketbook/faq/ZNZ927b7 (This link is being provided for informational/ educational purposes only.) The analytical performance characteristics of this assay have been determined by [facility]. The modifications have not been cleared or approved by the FDA. This assay has been validated pursuant to the CLIA regulations and is used for clinical purposes. Test Performed by [employer] [employer] [place], [address] [place], [place] Dwaine Morelos M.D., Ph.D., Director of Laboratories , CLIA [id number] Please note: ??Effective 07/14/2016, HPV testing will be performed using [employer]'s APTIMA test which targets mRNA. Detecting mRNA instead of DNA, as in older methods, offers significant improvements in specificity. 08/12/2018 10:5 7 AM EDT us Shereen Latham MD HISTORICAL/NON ORDERABLE L ABS Final Result Performing Organization Address City/State/[facility] Co de Phone Number [facility] Anywhere [address] from Last 3 Months or Most Recently Relevant to Health Maintenance Insurance 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 Advance Directives and Living Will 07/05/2024 11:59 AM Health Care Proxy Care Teams Electrophysiology Tech Relationship Specialty Start Date End Date Kings, MD Shereen [address] [place] [address] PCP - General Family Medicine 11/02/18 Nupur Bullock, Pushpa [address] [place] [address] Pharmacist Internal Medicine 08/09/24 Sury Benitez [address] [place] [address] Dr [address] [place] [address] Pulmonary Disease 09/27/24 Nirali Madrid OD [address] [place] [phone] Optometry 10/27/24 Li Grande MD [address] [place] [address] Hematology and Oncology 10/27/24 Anselmo Gates MD [address] [place] [address] Orthopaedic Surgery 10/27/24 Margaret Holman [address] [facility] 3rd [place] [address] Cardiology 10/27/24 Herberth Stokes MD [address] [facility] [address] [place] [address] Gastroenterology 10/27/24 Pily Delaney Cloth Printer HelperLivestock Handler 07/22/24 Elie Vicyk [facility] 12/29/24
--- OUTSIDE RECORDS SUMMARY | 2025-02-02 07:59 | XMS_ITS | Encounter Summary ---
Author Organization [employer] Address 75 [facility] 7t [place] [address] Care Team Providers Care Product Responsibility Liaison Name Role Phone Shereen Latham MD Primary Care Provider +1- [phone] Nupur Bullock PharmD Unavailable Sury Benitez Unavailable [phone] Nirali Madrid OD Unavailable [phone] Li Grande MD Unavailable [phone] Anselmo Gates MD Unavailable Margaret Holman Unavailable Herberth Stokes MD Unavailable [phone] Reason for Visit * Reason Onset Date Comments Medication Question 08/25/2024 Encounter Details Date Type Department Care Team (Late st Contact Info) Description 08/25/2024 Telephone [facility] MEDICINE [address] [place], [place] [phone] Shereen Latham MD 230 [place], [place] [phone] Medication Question Social History Tobacco Use Types [...] any questions you can contact pt at [phone]. documented in this encounter Plan of Treatment Upcoming Encounters Date Type Department Care Team (Late st Contact Info) Description 02/13/2025 2:00 PM EDT Clinical Support [facility] DIABETES/NUTRITION 230 [place] [address] Ernestina Esteban, RD 230 [place] [address] 02/17/2025 2:30 PM EDT Office Visit [facility] ADULT DENTAL 230 [place] [address] Paz-Connor, Isa, DDS 230 [place] [address] 03/29/2025 2:00 PM EDT Office Visit [facility] ADULT DENTAL 230 [place] [address] Heidi, Jenny 230 [place] [address] documented as of this encounter Visit Diagnoses Not on filedocumented in this encounter Additional Health Concerns Assessment Noted Time PHQ-9 Depression Total Score: 13 024 4:53 PM EDT documented as of this encounter Care Teams Product Responsibility Liaison Relationship Specialty Start Date End Date Shereen Latham MD [address] [place] [address] PCP - General Family Medicine 11/02/18 Nupur Bullock, CharleneD [address] [place] [address] Pharmacist Internal Medicine 08/09/24 Sury Benitez [address] [place] [address] [place] [address] Pulmonary Disease 09/27/24 Nirali Madrid OD [address] [place] [address] Optometry 10/27/24 Li Grande MD [address] [place] [address] Hematology and Oncology 10/27/24 Anselmo Gates MD [address] [place] [address] Orthopaedic Surgery 10/27/24 Margaret Holman [address] 3rd [place] [address] Cardiology 10/27/24 Herberth Stokes MD [address] [place] [address] Gastroenterology 10/27/24 Pily Delaney Plaster PatternmakerFactory Worker 07/22/24 Elie Vicky [facility] 12/29/24 documented as of this encounter
--- OUTSIDE RECORDS SUMMARY | 2025-02-02 07:59 | XMS_ITS | Encounter Summary ---
Author Organization [employer] Address 75 [facility] 7t [place] [address] Care Team Providers Care Sheet Metal Helper Name Role Phone Shereen Latham MD Primary Care Provider [phone]- [phone] Nupur Bullock PharmD Unavailable Sury Benitez Unavailable [phone] JuliusNirali castellanos OD Unavailable [phone] Li Grande MD Unavailable [phone] Anselmo Gates MD Unavailable Margaret Holman Unavailable Herberth Stokes MD Unavailable [phone] Encounter Details Date Type Department Care Team (Latest Contact Info) Description 08/16/2021 Abstract [facility] CONVERSIONS Dental, Provider, DDS Social History [...] Clinical Support [facility] DIABETES/NUTRITION 230 [place] [address] Ernestina Esteban, RD 230 [place] [address] 02/17/2025 2:30 PM EDT Office Visit [facility] ADULT DENTAL 230 [place] [address] Paz-Connor, Isa, DDS 230 [place] [address] 03/29/2025 2:00 PM EDT Office Visit [facility] ADULT DENTAL 230 [place] [address] Jeramie Gordonaris 230 [place] [address] documented as of this encounter Visit Diagnoses Not on filedocumented in this encounter Care Teams Sheet Metal Helper Relationship Specialty Start Date End Date Noa, MD Shereen 230 [place] [address] PCP - General Family Medicine 11/02/18 Nupur Bullock PharmD 230 [place] [address] Pharmacist Internal Medicine 08/09/24 Sury Benitez [address] [place] [address] [address] Pulmonary Disease 09/27/24 Nirali Madrid OD [address] [place] [address] Optometry 10/27/24 Li Grande MD [address] [place] [address] Hematology and Oncology 10/27/24 Anselmo Gates MD [address] [place] [address] [address] [place] [address] Orthopaedic Surgery 10/27/24 Margaret Holman [address] 3rd [place] [address] Cardiology 10/27/24 Herberth Stokes MD [address]rd [place] [address] Gastroenterology 10/27/24 Pily Delaney PulmonologistMedical Practice Administrator 07/22/24 Elie Vicky [facility] Psychology 12/29/24 documented as of this encounter
--- OUTSIDE RECORDS SUMMARY | 2025-02-02 07:59 | XMS_ITS | Clinical Summary ---
Author Organization [employer] [facility] it Address [address] [place] [address] Care Team Providers Care Demolition Engineer Name Role Phone Shereen Latham MD Primary Care Provider [phone]- [phone] Social History Tobacco Use Types Packs/Day Years [...] age to complete this topic Care Teams Demolition Engineer Relationship Specialty Start Date End Date Shereen Latham MD [address] [place] [phone] PCP - General 01/13/1996
--- OUTSIDE RECORDS SUMMARY | 2025-02-02 07:59 | XMS_ITS | Encounter Summary ---
Author Organization [employer] Address 75 [facility] 7t [place] [address] Care Team Providers Care Project Builder Name Role Phone Shereen Latham MD Primary Care Provider [phone]- [phone] Nupur Bullock PharmD Unavailable Sury Benitez Unavailable [phone] Nirali Madrid OD Unavailable [phone] Li Grande MD Unavailable [phone] Anselmo Gates MD Unavailable Margaret Holman Unavailable Herberth Stokes MD Unavailable [phone] Encounter Details Date Type Department Care Team (Late st Contact Info) Description 10/11/2024 Telephone [facility] MEDICINE 230 [place], [place] [phone] Shereen Latham MD 230 [place], [place] [phone] Social History Tobacco Use Types Packs/Day Years [...] Description 02/13/2025 2:00 PM EDT Clinical Support [facility] DIABETES/NUTRITION 230 [place] [address] 230 [place] [address] 02/17/2025 2:30 PM EDT Office Visit [facility] ADULT DENTAL 230 [place] [address] Isa De La Rosa, DDS 230 [place] [address] 03/29/2025 2:00 PM EDT Office Visit [facility] ADULT DENTAL 230 [place] [address] Jenny Gordon 230 [place] [address] documented as of this encounter Visit Diagnoses Not on filedocumented in this encounter Additional Health Concerns Assessment Noted Time PHQ-9 Depression Total Score: 13 024 4:53 PM EDT documented as of this encounter Care Teams Project Builder Relationship Specialty Start Date End Date Shereen Latham MD 230 [place] [address] PCP - General Family Medicine 11/02/18 Nupur Bullock, CharleneD 230 [place] [address] Pharmacist Internal Medicine 08/09/24 Sury Benitez [address] [facility] [address] [facility] 103 [place] [address] Pulmonary Disease 09/27/24 Nirali Madrid OD 267 [place] [address] Optometry 10/27/24 Li Grande MD 575 [place] [address] Hematology and Oncology 10/27/24 Anselmo Gates MD [address] [facility] [address] [place] [address] Orthopaedic Surgery 10/27/24 Margaret Holman [address] 3rd [place] [address] Cardiology 10/27/24 Herberth Stokes MD [address] 3rd Floor [place] [address] Gastroenterology 10/27/24 Pily Delaney Service ObserverTenterer 07/22/24 Elie BRASHER [facility] 12/29/24 documented as of this encounter
--- OUTSIDE RECORDS SUMMARY | 2025-02-02 07:59 | XMS_ITS | Encounter Summary ---
Author Organization [employer] Address 75 [facility] 7t [place] [address] Care Team Providers Care Credit Control Administrator Name Role Phone Shereen Latham MD Primary Care Provider [phone]- [phone] Nupur Bullock PharmD Unavailable [phone] Sury Benitez Unavailable [phone] Nirali Madrid OD Unavailable [phone] Li Grande MD Unavailable [phone] Anselmo Gates MD Unavailable Margaret Holman Unavailable Herberth Stokes MD Unavailable [phone] Reason for Visit * Reason Onset Date Comments Nurse Triage 01/25/2024 Referral 01/25/2024 Encounter Details Date Type Department Care Team (Late st Contact Info) Description 01/25/2024 Telephone [facility] MEDICINE 230 [place], [place] [phone] Shereen Latham MD 230 [place], [place] [phone] Nurse Triage; Referral Social History Tobacco Use [...] vary. Pt wants to be referred to [facility] [address] [place] [address]. Adivsed will send to team to review [...] become worse * Telephone Encounter - Elizabeth aCstano - 01/25/2024 9:50 AM EDT Symptoms: Back Pain - Not From Injury, Body Aches Outcome: Schedule an appointment to be seen within 3 days Reason: pt stated can't walk The caller accepted this outcome documented in this encounter Plan of Treatment Upcoming Encounters Date Type Department Care Team (Late st Contact Info) Description 02/13/2025 2:00 PM EDT Clinical Support [facility] DIABETES/NUTRITION 230 [place] [address] Ernestina Esteban, RD 230 [place] [address] 02/17/2025 2:30 PM EDT Office Visit [facility] ADULT DENTAL 230 [place] [address] Paz-Connor, Isa, DDS 230 [place] [address] 03/29/2025 2:00 PM EDT Office Visit [facility] ADULT DENTAL 230 [place] [address] Heidi, Jenny 230 [place] [address] documented as of this encounter Visit Diagnoses Not on filedocumented in this encounter Additional Health Concerns Assessment Noted Time PHQ-9 Depression Total Score: 21 12/21/2 023 10:42 AM EST documented as of this encounter Care Teams Credit Control Administrator Relationship Specialty Start Date End Date Shereen Latham MD 230 [place] [address] PCP - General Family Medicine 11/02/18 Nupur Bullock, CharleneD [address] [place] [address] Pharmacist Internal Medicine 08/09/24 Sury Benitez [address] [place] [address] Dr [facility] 103 [place] [address] Pulmonary Disease 09/27/24 Nirali Madrid OD 267 [place] [address] Optometry 10/27/24 Li Grande MD [address] [place] [address] Hematology and Oncology 10/27/24 Anselmo Gates MD [address] [place] [address] Orthopaedic Surgery 10/27/24 Margaret Holman 11 [facility] 3rd [place] [address] Cardiology 10/27/24 Herberth Stokes MD 11 [facility] 3rd [place] [address] Gastroenterology 10/27/24 Pily Delaney Detective Narcotics And ViceDirector Of Clinical Trials 07/22/24 Elie [facility] 12/29/24 documented as of this encounter
--- OUTSIDE RECORDS SUMMARY | 2025-02-02 07:59 | XMS_ITS | Encounter Summary ---
Author Organization [employer] Address 75 [facility] 7t [place] [address] Care Team Providers Care Software Support Representative Name Role Phone Shereen Latham MD Primary Care Provider [phone]- [phone] Nupur Bullock PharmD Unavailable Sury Benitez Unavailable [phone] JuliusNirali castellanos OD Unavailable [phone] Li Grande MD Unavailable [phone] Anselmo Gates MD Unavailable Margaret Holman Unavailable Herberth Stokes MD Unavailable [phone] Encounter Details Date Type Department Care Team (Latest Contact Info) Description 07/06/2019 Abstract [facility] CONVERSIONS Dental, Provider, DDS Social History [...] Support [facility] DIABETES/NUTRITION 230 [place] [address] Ernestina Esteban, RD 230 [place] [address] 02/17/2025 2:30 PM EDT Office Visit [facility] ADULT DENTAL 230 [place] [address] Paz-ConnorIsa, DDS 230 [place] [address] 03/29/2025 2:00 PM EDT Office Visit [facility] ADULT DENTAL 230 [place] [address] Heidi Jenny 230 [place] [address] documented as of this encounter Visit Diagnoses Not on filedocumented in this encounter Care Teams Software Support Representative Relationship Specialty Start Date End Date Pisgah, MD Shereen 230 [place] [address] PCP - General Family Medicine 11/02/18 Nupur Bullock PharmD 230 [place] [address] Pharmacist Internal Medicine 08/09/24 Sury Benitez [address] [place] [address] [address] Pulmonary Disease 09/27/24 Nirali Madrid OD [address] [place] [address] Optometry 10/27/24 Li Grande MD [address] [place] [address] Hematology and Oncology 10/27/24 Anselmo Gates MD [address] [place] [address] Drive [address] [place] [address] Orthopaedic Surgery 10/27/24 Margaret Holman [address] 3rd [place] [address] Cardiology 10/27/24 Herberth Stokes MD [address] [place] [address] Drive [address]rd [place] [address] Gastroenterology 10/27/24 Pily Delaney [place] Home Set Up PersonCar Record Clerk 07/22/24 Elie BRASHER [facility] 12/29/24 documented as of this encounter
--- OUTSIDE RECORDS SUMMARY | 2025-02-02 07:59 | XMS_ITS | Encounter Summary ---
Author Organization [employer] Address 75 [facility] 7t [place] [address] Care Team Providers Care Chemical Production Machine Operator Name Role Phone Shereen Latham MD Primary Care Provider [phone] Nupur Bullock PharmD Unavailable Sury Benitez Unavailable [phone] Nirali Madrid OD Unavailable Li Grande MD Unavailable [phone] Anselmo Gates MD Unavailable Margaret Holman Unavailable Herberth Stokes MD Unavailable [phone] Reason for Visit * Reason Onset Date Comments ER Follow-up 12/07/2024 Encounter Details Date Type Department Care Team (Late st Contact Info) Description 12/07/[address] [facility] MEDICINE 230 [place], [place] [phone] Shereen Latham MD 230 [place], [place] [phone] ER Follow-up Social History Tobacco Use Types [...] TC placed to pt to f/u on [facility] ED visit on 12/06/2024 for right lower [...] ED visit on : Date: 12/06/24 Hospital: [facility] Seen for: Flu Patient advised will forward to team nurse for follow up documented in this encounter Plan of Treatment Upcoming Encounters Date Type Department Care Team (Late st Contact Info) Description 02/13/2025 2:00 PM EDT Clinical Support [facility] DIABETES/NUTRITION 230 [place] [address] Ernestina Esteban, RD 230 [place] [address] 02/17/2025 2:30 PM EDT Office Visit [facility] ADULT DENTAL 230 [place] [address] Paz-Connor, Isa, DDS 230 [place] [address] 03/29/2025 2:00 PM EDT Office Visit [facility] ADULT DENTAL 230 [place] [address] Heidi, Jenny 230 [place] [address] documented as of this encounter Visit Diagnoses Not on filedocumented in this encounter Additional Health Concerns Assessment Noted Time PHQ-9 Depression Total Score: 13 06/07/ 024 4:53 PM EDT documented as of this encounter Care Teams Chemical Production Machine Operator Relationship Specialty Start Date End Date Shereen Latham MD 230 [place] [address] PCP - General Family Medicine 11/02/18 Nupur Bullock, Pushpa 230 [place] [address] Pharmacist Internal Medicine 08/09/24 Emmanuel Sury [address] [place] [address] Dr [facility] 103 [place] [address] Pulmonary Disease 09/27/24 Nirali Madrid, SUSAN [address] [place] [address] Optometry 10/27/24 Li Grande MD [address] [place] [address] Hematology and Oncology 10/27/24 Anselmo Gates MD [address] [place] [address] Orthopaedic Surgery 10/27/24 Margaret Holman [address] [facility] 3rd [place] [address] Cardiology 10/27/24 Herberth Stokes MD 11 [facility] 3rd [place] [address] Gastroenterology 10/27/24 Pily Delaney Study DirectorFloor And Wall Applier Liquid 07/22/24 Elie Vicky [facility] 12/29/24 documented as of this encounter
--- OUTSIDE RECORDS SUMMARY | 2025-02-02 07:59 | XMS_ITS | Encounter Summary ---
Author Organization [employer] Address 75 [facility] 7t [place] [address] Care Team Providers Care Fork Lift Mechanic Name Role Phone Shereen Latham MD Primary Care Provider [phone]- [phone] Nupur Bullock PharmD Unavailable Sury Benitez Unavailable [phone] Nriali Madrid OD Unavailable [phone] Li Grande MD Unavailable [phone] Anselmo Gates MD Unavailable Margaret Holman Unavailable Herberth Stokes MD Unavailable [phone] Encounter Details Date Type Department Care Team (Late st Contact Info) Description 07/27/2023 Orders Only [facility] MEDICINE 230 [place], [place] [phone] Shereen Latham MD 230 [place], [place] [phone] Hypomagnesemia Social History Tobacco Use Types Packs/Day [...] Description 02/13/2025 2:00 PM EDT Clinical Support [facility] DIABETES/NUTRITION [address] [place] [address] Ernestina Esteban, RD 230 [place] [address] 02/17/2025 2:30 PM EDT Office Visit [facility] ADULT DENTAL [address] [place] [address] Paz-Connor, Isa, DDS [address] [place] [address] 03/29/2025 2:00 PM EDT Office Visit [facility] ADULT DENTAL 230 [place] [address] Heidi, Jenny 230 [place] [address] documented as of this encounter Visit Diagnoses Diagnosis Hypomagnesemia Disorders of magnesium metabolism documented in this encounter Additional Health Concerns Assessment Noted Time PHQ-9 Depression Total Score: 10 023 10:27 AM EDT documented as of this encounter Care Teams Fork Lift Mechanic Relationship Specialty Start Date End Date Shereen Latham MD [address] [place] [address] PCP - General Family Medicine 11/02/18 Nupur Bullock PharmD [address] [place] [address] Pharmacist Internal Medicine 08/09/24 Sury Benitez [address] [place] [address] [place] [address] [place] [address] Pulmonary Disease 09/27/24 Nirali Madrid OD [address] [place] [address] Optometry 10/27/24 Li Grande MD [address] [place] [address] Hematology and Oncology 10/27/24 Anselmo Gates MD [address] [place] [address] Orthopaedic Surgery 10/27/24 Margaret Holman [address] 3rd [place] [address] Cardiology 10/27/24 Herberth Stokes MD [address]rd [place] [address] Gastroenterology 10/27/24 Pily Delaney Clock And Watch Hands PainterCylinder Filler 07/22/24 Elie Vicyk [facility] Psychology 12/29/24 documented as of this encounter
--- OUTSIDE RECORDS SUMMARY | 2025-02-02 07:59 | XMS_ITS | Encounter Summary ---
Author Organization [employer] Address 75 [facility] 7t [place] [address] Care Team Providers Care Picker/Puller Name Role Phone Shereen Latham MD Primary Care Provider [phone]- [phone] Nupur Bullock PharmD Unavailable Sury Benitez Unavailable [phone] Nirali Madrid OD Unavailable [phone] Li Grande MD Unavailable [phone] Anselmo Gates MD Unavailable Margaret Holman Unavailable Herberth Stokes MD Unavailable [phone] Encounter Details Date Type Department Care Team (Late st Contact Info) Description 11/16/2022 Abstract [facility] MEDICINE 230 [place], [place] [phone] Shereen Latham MD 230 [place], [place] [phone] Social History Tobacco Use Types Packs/Day Years [...] 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 Per Dr. Krish Loomis's note from [facility] QUALITY CONTROL AUDITOR, pt was due for repeat colposcopy in [...] Problem(s): Hyperaldosteronism (CMS/HCC) (Resolved 07/29/2023) Seen by [facility] Endocrinology 04/03/2022. Initially seen 12/2021 for hyperaldosteronism. Labs [facility] 10/2021 aldosterone 8, plasma renin 0.11, aldosterone/renin 72.7. She was likely on spironolactone and lisinopril at time of labs. Advise no spironolactone for 6 weeks and recheck renin aldosterone levels with renal panel and magnesium in horizontal resaw operator. 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 -S/p RIGHT [facility]Cytoxan [facility] chemotherapy started Oct, completed 4 [...] 2:00 PM EDT Clinical Support [facility] DIABETES/NUTRITION 230 [place] [address] [place] [address] 02/17/2025 2:30 PM EDT Office Visit [facility] ADULT DENTAL 230 [place] [address] PazJjConnorIsa abarca, DDS 230 [place] [address] 03/29/2025 2:00 PM EDT Office Visit [facility] ADULT DENTAL 230 [place] [address] Heidi, Jenny 230 [place] [address] documented as of this encounter Visit Diagnoses Not on filedocumented in this encounter Care Teams Picker/Puller Relationship Specialty Start Date End Date Shereen Latham MD 230 [place] [address] PCP - General Family Medicine 11/02/18 Nupur Bullock, CharleneD 230 [place] [address] Pharmacist Internal Medicine 08/09/24 Sury Benitez [address] [place] [address] Dr [facility] 103 [place] [address] Pulmonary Disease 09/27/24 Nirali Madrid OD [address] [place] [address] Optometry 10/27/24 Li Grande MD 575 [place] [address] Hematology and Oncology 10/27/24 Anselmo Gates MD [address] [facility] [address] [place] [address] Orthopaedic Surgery 10/27/24 Margaret Holman [address] 3rd [place] [address] Cardiology 10/27/24 Herberth Stokes MD 11 [facility] 3rd [place] [address] Gastroenterology 10/27/24 Pily Delaney Senior Microsoft ConsultantIndustrial Ecology Technician 07/22/24 Elie Vicky [facility] Psychology 12/29/24 documented as of this encounter
== END ==
LOC: HO.CARD 07:56
PROVIDERS: PCP Family Medicine; Visit Provider Nurse Practitioner Family
DX: R06.00 Dyspnea, unspecified (principal); I50.30 Unspecified diastolic (congestive) heart failure
CPT/HCPCS: 93308; Q9957

== ENCOUNTER → 2025-02-02 07:58 | Outpatient (BNV) | payer MEDICAID, SELFPAY | PROVIDERS: PCP Family Medicine; Visit Provider Internal Medicine | DX: I42.2 Other hypertrophic cardiomyopathy (principal); I31.39 Other pericardial effusion (noninflammatory) | CPT/HCPCS: 93308 ==

== ENCOUNTER 2025-02-07 09:45 | Outpatient (REF) | payer MEDICAID, SELFPAY ==
--- OUTSIDE RECORDS SUMMARY | 2025-02-07 11:10 | XMS_ITS | Encounter Summary ---
Author Organization [employer] Address 75 [facility] 7t [place] [address] Care Team Providers Care Fugitive Detective Name Role Phone Shereen Latham MD Primary Care Provider [phone] Nupur Bullock PharmD Unavailable Sury Benitez Unavailable [phone] Nirali Madrid OD Unavailable [phone] Li Grande MD Unavailable [phone] Anselmo Gates MD Unavailable Margaret Holman Unavailable Herberth Stokes MD Unavailable [phone] Hilton Palacios MD Unavailable [phone] Reason for Visit * Reason Onset Date Comments Medication Question 07/05/2024 Encounter Details Date Type Department Care Team (Late st Contact Info) Description 07/05/2024 Telephone [facility] MEDICINE [address] [place], [place] [phone] Shereen Latham MD [address] [place], [place] [phone] Medication Question Social History Tobacco Use Types [...] is no medication interaction. Contact pt at [phone] documented in this encounter Plan of Treatment Upcoming Encounters Date Type Department Care Team (Late st Contact Info) Description 02/13/2025 2:00 PM EDT Clinical Support [facility] DIABETES/NUTRITION [address] [place] [address] Ernestina Esteban, RD [address] [place] [address] 02/17/2025 2:30 PM EDT Office Visit [facility] ADULT DENTAL [address] [place] [address] Paz-Connor, Isa, DDS [address] [place] [address] 03/29/2025 2:00 PM EDT Office Visit [facility] ADULT DENTAL [address] [place] [address] Jenny Gordon [address] [place] [address] 04/25/2025 2:30 PM EDT Medication Management [facility] MEDICINE [address] [place] [address] Nupur Bullock, CharleneD [address] [place] [address] documented as of this encounter Visit Diagnoses Diagnosis Pain Generalized pain documented in this encounter Additional Health Concerns Assessment Noted Time PHQ-9 Depression Total Score: 13 024 4:53 PM EDT documented as of this encounter Care Teams Fugitive Detective Relationship Specialty Start Date End Date Shereen Latham MD [address] [place] [address] PCP - General Family Medicine 11/02/18 Nupur Bullock, CharleneD [address] [place] [address] Pharmacist Internal Medicine 08/09/24 Sury Benitez [address] [place] [address] [address] [place] [address] Pulmonary Disease 09/27/24 Nirali Madrid OD [address] [place] [address] Optometry 10/27/24 Li Grande MD [address] [place] [address] Hematology and Oncology 10/27/24 Anselmo Gates MD 10 [facility] [address] [place] [address] Orthopaedic Surgery 10/27/24 Margaret Holman 11 [facility] 3rd [place] [address] Cardiology 10/27/24 Herberth Stokes MD 11 [facility] 3rd [place] [address] Gastroenterology 10/27/24 Hilton Palacios MD [address] [place] [address], [address] [place] [address] Neurology 02/06/25 Pily Delaney Cob SawyerElectrical Mechanic 07/22/24 Elie BRASHER [facility] Psychology 12/29/24 documented as of this encounter
--- OUTSIDE RECORDS SUMMARY | 2025-02-07 11:10 | XMS_ITS | Encounter Summary ---
Author Organization [employer] Address [address] [facility] 7t [place] [address] Care Team Providers Care Marketing Sales Consultant Name Role Phone Shereen Latham MD Primary Care Provider [phone] Nupur Bullock PharmD Unavailable Sury Benitez Unavailable [phone] Nirali Madrid OD Unavailable Li Grande MD Unavailable [phone] Anselmo Gates MD Unavailable Margaret Holman Unavailable Herberth Stokes MD Unavailable [phone] Hilton Palacios MD Unavailable Reason for Visit * Reason Comments Med Refill Encounter Details Date Type Department Care Team (Late st Contact Info) Description 06/21/[address] [facility] CHC MED & PEDS [address] [place], [place] [phone] Shereen Latham MD 230 [place] [address] Mild intermittent asthma, unspecified whether complicated; Pain [...] PM EDT Clinical Support [facility] DIABETES/NUTRITION [address] [place] [address] Ernestina Esteban, RD 230 [place] [address] 02/17/2025 2:30 PM EDT Office Visit [facility] ADULT DENTAL [address] [place] [address] Paz-Connor, Isa, DDS [address] [place] [address] 03/29/2025 2:00 PM EDT Office Visit [facility] ADULT DENTAL [address] [place] [address] Heidi, Jenny [address] [place] [address] 04/25/2025 2:30 PM EDT Medication Management [facility] MEDICINE [address] [place] [address] Nupur Bullock, PharmD [address] [place] [address] documented as of this encounter Visit Diagnoses Diagnosis Mild intermittent asthma, unspecified whether complicated Pain Generalized pain documented in this encounter Additional Health Concerns Assessment Noted Time PHQ-9 Depression Total Score: 13 024 4:53 PM EDT documented as of this encounter Care Teams Marketing Sales Consultant Relationship Specialty Start Date End Date Shereen Latham MD [address] [place] [address] PCP - General Family Medicine 11/02/18 Nupur Bullock, PharmD [address] [place] [address] Pharmacist Internal Medicine 08/09/24 Sury Benitez [address] [place] [address] [place] [address] Pulmonary Disease 09/27/24 JuliusNirali castellanos OD [address] [place] [address] Optometry 10/27/24 Li Grande MD [address] [place] [address] Hematology and Oncology 10/27/24 Anselmo Gates MD [address] [place] [address] Orthopaedic Surgery 10/27/24 Margaret Holman [address] 3rd [place] [address] Cardiology 10/27/24 Herberth Stokes MD 11 [facility] 3rd [place] [address] Gastroenterology 10/27/24 Hilton Palacios MD 15 [facility], [address] [place] [address] Neurology 02/06/25 Pily Delaney Dowel Pin WorkerTape Recorder Mechanic 07/22/24 Elie Vicky [facility] 12/29/24 documented as of this encounter
--- OUTSIDE RECORDS SUMMARY | 2025-02-07 11:10 | XMS_ITS | Encounter Summary ---
Author Organization [employer] Address 75 [facility] 7t [place] [address] Care Team Providers Care Orthopedic Mechanic Name Role Phone Shereen Latham MD Primary Care Provider [phone] Nupur Bullock PharmD Unavailable [phone] Sury Benitez Unavailable [phone] Nirali Madrid OD Unavailable Li Grande MD Unavailable [phone] Anselmo Gates MD Unavailable Margaret Holman Unavailable Herberth Stokes MD Unavailable [phone] Hilton Palacios MD Unavailable Reason for Visit * Reason Onset Date Comments Nurse Triage 05/25/2024 Encounter Details Date Type Department Care Team (Late st Contact Info) Description 05/25/2024 Telephone [facility] MEDICINE [address] [place], [place] [phone] Shereen Latham MD 230 [place], [place] [phone] Nurse Triage Social History Tobacco Use Types [...] . Pt reports Pt was seen in [facility] 05/11/24 for continued leftfoot pain and Pt was seen by tag and label cutter, Leta Lunsford MD 05/11/24 also (report is on the chart). Pt had been advised to stop BP med chlorthalidone per tag and label cutter [facility] [place] because that particular medication is known to [...] anxiety. Pt is advised to come to [facility] today , open till 8pm, to [...] Description 02/13/2025 2:00 PM EDT Clinical Support [facility] DIABETES/NUTRITION [address] [place] [address] Sarkisjohnymallory, Ernestina, RD 230 [place] [address] 02/17/2025 2:30 PM EDT Office Visit [facility] ADULT DENTAL [address] [place] [address] Paz-Connor, Isa, DDS [address] [place] [address] 03/29/2025 2:00 PM EDT Office Visit [facility] ADULT DENTAL [address] [place] [address] Heidi, Jenny [address] [place] [address] 04/25/2025 2:30 PM EDT Medication Management [facility] MEDICINE [address] [place] [address] Nupur Bullock, Pushpa 230 [place] [address] documented as of this encounter Visit Diagnoses Not on filedocumented in this encounter Additional Health Concerns Assessment Noted Time PHQ-9 Depression Total Score: 22 024 9:12 AM EDT documented as of this encounter Care Teams Orthopedic Mechanic Relationship Specialty Start Date End Date Shereen Latham MD [address] [place] [address] PCP - General Family Medicine 11/02/18 Nupur Bullock, PharmD [address] [place] [address] Pharmacist Internal Medicine 08/09/24 Sury Benitez [address] [place] [address] [place] [address] Pulmonary Disease 09/27/24 Nirali Madrid OD [address] [place] [address] Optometry 10/27/24 Li Grande MD [address] [place] [address] Hematology and Oncology 10/27/24 Anselmo Gates MD 10 [facility] [address] [place] [address] Orthopaedic Surgery 10/27/24 Margaret Holman 11 [facility] 3rd [place] [address] Cardiology 10/27/24 Herberth Stokes MD 11 [facility] 3rd [place] [address] Gastroenterology 10/27/24 Hilton Palacios MD 15 [facility], [address] [place] [address] Neurology 02/06/25 Pily Delaney Mail Carrier And ClerkFowl Blood Tester 07/22/24 Elie Vicky [facility] 12/29/24 documented as of this encounter
--- OUTSIDE RECORDS SUMMARY | 2025-02-07 11:10 | XMS_ITS | Encounter Summary ---
Author Organization [employer] Address 75 [facility] 7t [place] [address] Care Team Providers Care Detailer Name Role Phone Shereen Latham MD Primary Care Provider [phone] Nupur Bullock PharmD Unavailable Sury Benitez Unavailable [phone] Nirali Madrid OD Unavailable Li Grande MD Unavailable [phone] Anselmo Gates MD Unavailable Margaret Holman Unavailable Hebrerth Stokes MD Unavailable [phone] Hilton Palacios MD Unavailable Encounter Details Date Type Department Care Team (Late st Contact Info) Description 10/22/2023 Orders Only [facility] MEDICINE 230 [place] [address] Shereen Latham MD 230 [place], [place] [phone] Vitamin D deficiency Social History Tobacco Use [...] [facility]ITION 230 [place] [address] Ernestina Esteban, KATE 230 [place] [address] 02/17/2025 2:30 PM EDT Office Visit [facility] ADULT DENTAL 230 [place] [address] Isa De La Rosa DDS 230 [place] [address] 03/29/2025 2:00 PM EDT Office Visit [facility] ADULT DENTAL 230 [place] [address] Jenny Gordon 230 [place] [address] 04/25/2025 2:30 PM EDT Medication Management [facility] MEDICINE [address] [place] [address] Nupur Bullock, Pushpa 230 [place] [address] documented as of this encounter Visit Diagnoses Diagnosis Vitamin D deficiency documented in this encounter Additional Health Concerns Assessment Noted Time PHQ-9 Depression Total Score: 21 023 10:42 AM EST documented as of this encounter Care Teams Detailer Relationship Specialty Start Date End Date Shereen Latham MD 230 [place] [address] PCP - General Family Medicine 11/02/18 Nupur Bullock, Pushpa [address] [place] [address] Pharmacist Internal Medicine 08/09/24 Sury Benitez [address] [place] [address] [address] [facility] [address] [place] [address] Pulmonary Disease 09/27/24 Nirali Madrid OD 267 [place] [address] Optometry 10/27/24 Li Grande MD 575 [place] [address] Hematology and Oncology 10/27/24 Anselmo Gates MD [address] [facility] [address] [place] [address] Orthopaedic Surgery 10/27/24 Margaret Holman [address] 3rd [place] [address] Cardiology 10/27/24 Herberth Stokes MD [address] [facility]rd [place] [address] Gastroenterology 10/27/24 Hilton Palacios MD [address] [place] [address], [address] [place] [address] Neurology 02/06/25 Pily Delaney Breakfast AttendantSnuff Drier 07/22/24 Elie BRASHER [facility] 12/29/24 documented as of this encounter
--- OUTSIDE RECORDS SUMMARY | 2025-02-07 11:10 | XMS_ITS | Encounter Summary ---
Author Organization [employer] Address 75 [facility] 7t [place] [address] Care Team Providers Care Design Painter Name Role Phone Shereen Latham MD Primary Care Provider [phone] Nupur Bullock PharmD Unavailable Sury Benitez Unavailable [phone] Nirali Madrid OD Unavailable Li Grande MD Unavailable [phone] Anselmo Gates MD Unavailable Margaret Holman Unavailable Herberth Stokes MD Unavailable [phone] Hilton Palacios MD Unavailable Reason for Referral * Imaging (Routine) - Pending Review Specialty Diagnoses / Procedures Referred By Walter nelson Referred To Contact Radiology Diagnoses Breast pain, left Procedures BI Mammogram Diagnostic Tomosynthesis Left Stacey Khan MD [address] [place] [address] Phone: tel: fax: [facility] [address] [place], [place] Phone: tel: fax: Referral ID Status Reason Start Date Expiration Date V isits Requested Visits Authorized [id number] Pending Review 01/19/2025 01/19/2026 1 1 * Imaging (Routine) - Pending Review Specialty Diagnoses / Procedures Referred By Walter nelson Referred To Contact Radiology Diagnoses Breast pain, left Procedures BI US Breast Limited Left Stacey Khan MD [address] [place] [address] Phone: tel: fax: [address] Phone: tel: fax: Referral ID Status Reason Start Date Expiration Date V isits Requested Visits Authorized [id number] Pending Review 01/19/2025 01/19/2026 1 1 Encounter Details Date Type Department Care Team (Late st Contact Info) Description 01/19/2025 Orders Only [facility] MEDICINE [address] [place] [address] Stacey Khan MD [address] [place], [place] [phone] Breast pain, left (Primary Dx) Social History [...] Description 02/13/2025 2:00 PM EDT Clinical Support [facility] DIABETES/NUTRITION [address] [place] [address] Ernestina Esteban, KATE [address] [place] [address] 02/17/2025 2:30 PM EDT Office Visit [facility] ADULT DENTAL [address] [place] [address] Isa De La Rosa DDS [address] [place] [address] 03/29/2025 2:00 PM EDT Office Visit [facility] ADULT DENTAL [address] [place] [address] Jenny Gordon [address] [place] [address] 04/25/2025 2:30 PM EDT Medication Management [facility] MEDICINE [address] [place] [address] Nupur Bullock PharmD [address] [place], [place] Scheduled Orders Name Type Priority Associated Diagnoses [...] documented as of this encounter Care Teams Design Painter Relationship Specialty Start Date End Date Shereen Latham MD [address] [place] [address] PCP - General Family Medicine 11/02/18 Nupur Bullock, Pushpa [address] [place] [address] Pharmacist Internal Medicine 08/09/24 Sury Benitez [address] [place] [address] Dr [address] [place] [address] Pulmonary Disease 09/27/24 Nirali Madrid, SUSAN [address] [place] [address] Optometry 10/27/24 Li Grande MD [address] [place] [address] Hematology and Oncology 10/27/24 Anselmo Gates MD [address] [place] [address] Drive [address] [place] [address] Orthopaedic Surgery 10/27/24 Margaret Holman [address]rd [place] [address] Cardiology 10/27/24 Herberth Stokes MD [address]rd [place] [address] Gastroenterology 10/27/24 Hilton Palacios MD [address] [place] [address], [address] [place] [address] Neurology 02/06/25 Pily Delaney Instructional Support AssistantAvionics Electronics Technician 07/22/24 Elie Vicky [facility] Psychology 12/29/24 documented as of this encounter
--- OUTSIDE RECORDS SUMMARY | 2025-02-07 11:10 | XMS_ITS | Clinical Summary ---
Author Organization [employer] Address [address] [place] [address] Care Team Providers Care Die Maker Stamping Name Role Phone Shereen Latham MD Primary Care Provider [phone] Nupur Bullock PharmD Unavailable Sury Benitez Unavailable [phone] Nirali Madrid OD Unavailable Li Grande MD Unavailable [phone] Anselmo Gates MD Unavailable Margaret Holman Unavailable Herberth Stokes MD Unavailable [phone] Hilton Palacios MD Unavailable Allergies Active Allergy Reactions Criticality Noted Date [...] Active Problems Problem Noted Date Diagnosed Date Occipital neuralgia 02/06/2025 Overview (02/06/2025): -seen by neurologist Dr. Palacios 02/01/25, dx with occipital neuralgia in setting of fibromyalgia, started on carbamazepine 200mg 1/2 tab bid and recommending follow up in 2 months Gout 07/13/2024 Overview (12/29/2024): Lab Results Component Value Date URICACID 5.8 (H) 12/29/2024 URICACID 5.9 (H) 08/30/2024 URICACID 5.4 06/16/2024 URICACID 7.9 (H) 04/25/2024 -Pt initially treated for gout in R 04/21/24 with uric acid 7.9 -Seen by forensic manager Dr. Bernstein 05/11/24 or evaluation of acute gout affecting left foot. -Pt admitted 07/25/24-07/2524 for swelling, pain, and warmth in the right knee. Patient had a low fever (100.3 F) and elevated WBC (53972 cells/uL), CRP, and ESR. Orthopedic surgery consulted [...] 04/21/24 with uric acid 7.9 -Seen by forensic manager Dr. Bernstein 05/11/24 or evaluation of acute gout affecting left foot. -Pt admitted 07/25/24-07/2524 for swelling, pain, and warmth in the right knee. Patient had a low fever (100.3 F) and elevated WBC (86747 cells/uL), CRP, and ESR. Orthopedic surgery consulted [...] WRITTEN ON 08/24/2024 9:41 AM BY JOLIE YAÑEZ on 08/16/24 who recommended assessing patient's uric [...] ON 08/24/2024 9:45 AM BY JOLIE PA [facility] (07/25/2024 - 07/27/2024) Patient presented with swelling, pain, and warmth in the right knee. Patient had a low fever (100.3 F) and elevated WBC (50087 cells/uL), CRP, and ESR. Orthopedic surgery consulted [...] by mouth once daily for 5 days. [facility] ED (08/07/2024) Patient presented for right knee [...] colonoscopy 07/11/24, showed tubular adenoma x 3 Hydradenitis 06/29/2024 Overview (06/29/2024): -prescribed doxycycline Assessment & Plan (06/29/2024 4:47 PM EDT): -prescribed doxycycline SOB (shortness of breath) 06/29/2024 Overview (12/29/2024): -Followed by [facility] Pulmonology with Sury Benitez NP -02/2024 RAST [...] Plan (12/29/2024 11:03 AM EST): -Followed by [facility] Pulmonology with Sury Benitez NP -02/2024 RAST [...] if needed. -pt reports she saw her stone chimney mason and is continuing management with them. . Assessment & Plan (07/13/2024 2:15 PM EDT): -referred to pulmonology 06/29/24 -Pt reports she has appt to see stone chimney mason 08/01/24 Assessment & Plan (06/29/2024 4:49 PM [...] failure with reduced EF during admission to [facility] 06/22/24. - She was started on Lasix [...] effusion and indeterminate diastolic function -Seen by [facility] Cardiology 08/01/24 : exercise nuclear stress test [...] with reduced EF during recent admission to [facility] 06/22/24. Pt was volume overloaded therefore treated [...] with reduced EF during recent admission to [facility] 06/22/24. Pt was volume overloaded therefore treated [...] failure with reduced EF during admission to [facility] 06/22/24. - She was started on Lasix [...] effusion and indeterminate diastolic function -Seen by [facility] Cardiology 08/01/24 : exercise nuclear stress test [...] failure with reduced EF during admission to [facility] 06/22/24. - She was started on Lasix [...] effusion and indeterminate diastolic function -Seen by [facility] Cardiology 08/01/24 : exercise nuclear stress test [...] again to get stress test scheduled 12/29/24. Cardiac risk counseling 02/24/2024 Overview (12/29/2024): Calculated [...] Complex care coordination 01/11/2024 Overview (01/11/2024): -Has POLYMER SCIENTIST services with [employer] -She is applying [facility] 01/11/2024 -In our C3 complex care management program -referred to [facility] on 01/04/2024 -Messaged sent to C3 careers adviser for assistance in care visits Assessment & Plan (12/29/2024 10:21 AM EST): -Has POLYMER SCIENTIST services with [employer] -She is applying [facility] 01/11/2024 -In our complex care management program -referred to [facility] on 01/04/2024 -Messaged sent to C3 careers adviser for assistance in care visits Assessment & Plan (08/24/2024 9:19 AM EDT): -Has POLYMER SCIENTIST services with [employer] -Leonora is applying [facility] 01/11/2024 -In our complex care management program -referred to [facility] on 01/04/2024 -Messaged sent to C3 careers adviser for assistance in care visits Assessment & Plan (06/29/2024 4:06 PM EDT): -Has POLYMER SCIENTIST services with [facility] -Leonora is applying [facility] 01/11/2024 -In our complex care management program -referred to [facility] on 01/04/2024 -Messaged sent to C3 careers adviser for assistance in care visits Assessment & Plan (01/11/2024 9:30 AM EDT): -Has POLYMER SCIENTIST services with [employer] -Leonora is applying [facility] 01/11/2024 -In our complex care management program -referred to [facility] on 01/04/2024 -Messaged sent to C3 careers adviser for assistance in care visits Generalized anxiety [...] Pain Management team and will reconnect with [facility]. Information given to patient. PLAN: (check all that apply) Behavioral Health Integration Plan Self- referred to [facility]/N per patient's preference. Assessment & Plan (11/24/2023 11:53 AM EST): STEFANY-7 Total Score: 21 (10/22/2023 10:44 AM) New/Additional Services needed Off-site services for , Behavioral Health Integration Plan External OP therapy referral , Patient Self Plan Patient to utilize skills provided in intervention , Patient to reach out to [facility] team as needed, and Patient [...] for transfusion - Iron infusions ordered by Tariff Supervisor DR. Grande - She recieved two [...] for transfusion - Iron infusions ordered by Tariff Supervisor DR. Grande - She recieved two [...] for transfusion - Iron infusions ordered by Tariff Supervisor DR. Grande - She recieved two [...] for transfusion - Iron infusions ordered by Tariff Supervisor DR. Grande - She recieved two [...] pedro back by: Janett Ortega Person calling: [employer] Date:06/16/24 Time: 1218 Saw CDTM on 08/16/24 [...] pedro back by: Janett Ortega Person calling: [employer] Date:06/16/24 Time: 1218 Assessment & Plan (07/29/2023 4:34 PM EDT): Received magnesium IV in ER -Dose increased to TID - Recheck in 2 weeks Other specified health status 07/20/2023 Overview (07/11/2024): -next physical exam due after 06/29/25 -eye care facilitated by [facility] -[facility] care proxy filed 06/29/24 Assessment & Plan (06/29/2024 4:03 PM EDT): -next physical exam due after 06/29/25 -eye care facilitated by [facility] -dental home is [facility] -health care proxy given and filed 06/29/24 [...] on scene within 10 minutes, transfer completed [facility] ER called with expect Chronic GERD 05/26/2023 [...] had ultrasound sound for abdominal pain at [facility] revealing diffusely echogenic parenchyma with focal sparing [...] had ultrasound sound for abdominal pain at [facility] revealing diffusely echogenic parenchyma with focal sparing [...] had ultrasound sound for abdominal pain at [facility] revealing diffusely echogenic parenchyma with focal sparing [...] had ultrasound sound for abdominal pain at [facility] revealing diffusely echogenic parenchyma with focal sparing [...] had ultrasound sound for abdominal pain at [facility] revealing diffusely echogenic parenchyma with focal sparing [...] ultrasound sound for abdominal pain at [facility] Ultrasound showed diffusely echogenic parenchyma with focal [...] been referred [facility] for Support and Recovery but has [...] subsequently declined -Admitted for alcohol detox at [facility] 04/09/24 -reports she is currently not drinking [...] been referred to [facility] for Support and Recovery but has [...] subsequently declined -Admitted for alcohol detox at [facility] 04/09/24 -reports she is currently not drinking [...] [facility] for [facility] and Recovery [...] subsequently declined -Admitted for alcohol detox at [facility] 04/09/24 -reports she is currently not drinking [...] phenobarb improved her symptoms, patient declined wildlife ecology professor help to place her in rehab, is [...] phenobarb improved her symptoms, patient declined wildlife ecology professor help to place her in rehab, is [...] type, invasive tumor 2.2 cm ER positive, AK positive, HER-2/RON negative, two sentinel nodes negative. -S/[facility] Oct, completed [...] on 09/23/23. Patient missed Heme/Oncology visit on 5/10/24. Per last contact with Heme/Oncology office, CM [...] type, invasive tumor 2.2 cm ER positive, AK positive, HER-2/RON negative, two sentinel nodes negative. -S/p RIGHT [facility] with [facility] started Oct, completed [...] type, invasive tumor 2.2 cm ER positive, AK positive, HER-2/RON negative, two sentinel nodes negative. -S/p RIGHT [facility] started Oct, completed [...] type, invasive tumor 2.2 cm ER positive, AK positive, HER-2/RON negative, two sentinel nodes negative. -S/p RIGHT [facility] with [facility] started Oct, completed [...] type, invasive tumor 2.2 cm ER positive, AK positive, HER-2/RON negative, two sentinel nodes negative. -S/p RIGHT [facility]aste[facility] with [facility] started Oct, completed [...] type, invasive tumor 2.2 cm ER positive, AK positive, HER-2/RON negative, two sentinel nodes negative. -S/p RIGHT maste[facility] with [facility] started Oct, completed [...] type, invasive tumor 2.2 cm ER positive, AK positive, HER-2/RON negative, two sentinel nodes negative. -S/p RIGHT maste[facility] with [facility] started Oct, completed [...] type, invasive tumor 2.2 cm ER positive, AK positive, HER-2/RON negative, two sentinel nodes negative. -S/p RIGHT mastectomy with sentinel node bx by Dr. [facility] -Adriamycin/Cytoxan based chemotherapy started Oct, completed [...] type, invasive tumor 2.2 cm ER positive, AK positive, HER-2/RON negative, two sentinel nodes negative. -S/p RIGHT mastectomy with sent[facility] started Oct, completed [...] type, invasive tumor 2.2 cm ER positive, AK positive, HER-2/RON negative, two sentinel nodes negative. -S/p RIGHT maste[facility] with [facility] started Oct, completed [...] Overview (06/28/2024): Lab Results Component Value Date [id number] 58.3 06/16/2024 [id number] 106.4 01/04/2024 [id number] 76.8 09/22/2023 Assessment & Plan (06/29/2024 3:39 PM EDT): Lab Results Component Value Date [id number] 58.3 06/16/2024 [id number] 106.4 01/04/2024 [id number] 76.8 09/22/2023 Assessment & Plan (12/14/2023 12:09 PM EST): Lab Results Component Value Date [id number] 76.8 09/22/2023 -Labs ordered for further evaluation: Vitmain D, 25-hydroxy, Total, Immunoassay. 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 Per Dr. Krish Loomis's note from [facility], pt was due for repeat colposcopy in [...] Dr. Krish Loomis's note from [facility], pt was due for repeat colposcopy in [...] Dr. Krish Loomis's note from [facility], pt was due for repeat colposcopy in [...] Dr. Krish Loomis's note from [facility], pt was due for repeat colposcopy in [...] Health Integration Plan Internal Follow up with [facility] Patient Self Plan Patient to utilize skills provided in intervention , Patient to reach out to [facility] team as needed, Patient to reach out to [facility] as needed, and will contact [facility] Intake number to connect with truck terminal manager OP services, and psychiatrist. Rule Out Diagnoses: [...] Encouraged smoking cessation resources such as pharmacomtherapy, [facility] smoking cessation group, and [facility] pharmacy smoking cessation clinic Discussed USPSTF [...] as pharmacomtherapy, [facility] smoking cessation group, and [facility] pharmacy smoking cessation clinic Discussed USPSTF [...] as pharmacomtherapy, [facility] smoking cessation group, and [facility] pharmacy smoking cessation clinic Discussed USPSTF [...] as pharmacomtherapy, [facility] smoking cessation group, and [facility] pharmacy smoking cessation clinic Discussed USPSTF [...] as pharmacomtherapy, [facility] smoking cessation group, and [facility] pharmacy smoking cessation clinic Discussed USPSTF [...] the occipital region. -referred to neurology 08/24/24 Flank pain 06/29/2024 02/06/2025 History of CHF (congestive heart failure) 06/28/2024 10/27/2024 Gout of foot 06/20/2024 10/27/2024 Assessment & Plan (06/20/2024 4:00 PM EDT): Doing well but didn't tolerate Colchicine. DC colchicine and use sucralfate x 1w, then restart Allopurinol and fu with PCP. Dyspepsia 06/20/2024 02/06/2025 Assessment & Plan (06/20/2024 4:00 PM EDT): Sec to colchicine DC colchicine, start Sucralfate x 1w Gout flare 05/11/2024 12/29/2024 Overview (07/13/2024): Seen by forensic manager Dr. Bernstein 05/11/24 or evaluation of [...] Plan (07/13/2024 2:21 PM EDT): Seen by forensic manager Dr. Bernstein 05/11/24 or evaluation of [...] with unsp ecified alcohol-induced disorder 04/25/2024 06/28/2024 Depression with anxiety 04/25/2024 04/0 05/2025 Assessment & Plan (11/17/2024 1:56 PM EST): Denies suicidial or homacidial ideation Malignant neoplasm of breast 01/11/2024 01/11/2024 Right [...] EDT): Patient requesting a Physical for her POLYMER SCIENTIST hours to be re-instated. On exam today, her vitals are stable and her exam seems unchanged from previous one. Work up in progress for her c/o bilateral foot pain Hospital discharge follow-up 06/18/2023 07/20/2023 Assessment & Plan (07/14/2023 10:23 AM EDT): Patient here for a HDF. She was admitted to [facility] from 06/05-06/08 . She presented with concerns [...] Hyperaldosteronism 11/16/2022 3 Overview (11/16/2022): Seen by [facility] End[facility] 04/03/2022. Initially seen 12/2021 for hyperaldosteronism. Labs [facility] 10/2021 aldosterone 8, plasma renin 0.11, aldosterone/renin 72.7. She was likely on spironolactone and lisinopril at time of labs. Advise no spironolactone for 6 weeks and recheck renin aldosterone levels with renal panel and magnesium in notching press operator. Assessment & Plan (11/16/2022 10:55 AM EST): Seen by [facility] Endocrinology 04/03/2022. Initially seen 12/2021 for hyperaldosteronism. Labs [facility] 10/2021 aldosterone 8, plasma renin 0.11, aldosterone/renin 72.7. She was likely on spironolactone and lisinopril at time of labs. Advise no spironolactone for 6 weeks and recheck renin aldosterone levels with renal panel and magnesium in notching press operator. Anxiety 04/19/2014 01/28/2024 Encounters Date Type Department Care Team Description 01/27/2025 Orders Only [facility] MEDICINE [address] [facility] [place] [address] Shereen Latham MD History of right breast cancer (Primary Dx) 01/27/2025 Orders Only [facility] MED[facility] [address] [facility] [address] Shereen Latham MD Hypomagnesemia (Primary Dx) 01/24/2025 1:00 PM EDT Clinical Support [facility] DI[facility]ETES/NU[facility]ITIO N [address] [facility] [place] [address] History of chronic CHF (Primary Dx) 01/24/2025 Telephone [facility] [address] [facility] [place] [address] Shereen Latham MD Medication Question 01/24/2025 Travel 01/19/2025 Orders Only [facility] MED[facility] [address] [facility] [place] [address] Stacey Khan MD Women's annual routine gynecological examination (Primary Dx) 01/19/2025 Orders Only [facility] [address] [place] [address] Stacey Khan MD Breast pain, left (Primary Dx) 01/17/2025 3:00 PM EDT Nutrition [facility] DIABETES/NUTRITIO N [address] [facility] [place] [address] History of chronic CHF 01/17/2025 Refill [facility] [address], [place] [phone] Shereen Latham MD Pain 01/17/2025 Travel 01/17/2025 Refill [facility] [address], [place] [phone] Mayda Rush MD Pain 01/16/[address] [address] Shereen Latham MD Appointment Request 01/13/2025 Population Health Risk Score Community [facility] (C3) Department [address] [place] [phone] Provider, Population Health Generic 01/12/2025 Refill [facility] [address] [place] [address] Shereen Latham MD Benign essential hypertension 01/09/2025 Refill [facility] [address] [place] [address] Shereen Latham MD Gastroesophageal reflux disease, unspecified whether esophagitis present; Vitamin D deficiency; Nasal congestion 01/03/[address] [address] Shereen Latham MD Referral 12/29/2024 10:30 AM EST Office Visit [address] [address] Shereen Latham MD History of right breast [...] coordination; Tubular adenoma of colon 12/29/[address] [address] Shereen Latham MD Results 12/29/2024 Orders Only [address] [phone] Shereen Latham MD Gout, unspecified cause, unspecified chronicity, unspecified site 12/29/2024 Orders Only GENERIC EXTERNAL DATA DEPARTMENT Provider, Generic External Data 12/29/2024 Travel 12/22/[address] [address] Shereen Latham MD Durable Medical Equipment; chartprep 12/22/[address] [address] Shereen Latham MD Nurse Triage 12/21/2024 3:30 PM EST Telemedicine [address] [address] Nupur Bullock PharmD Preventative health care (Primary Dx) 12/21/2024 Travel 12/21/2024 Refill [facility] [address] [place] [address] Shereen Latham MD Pain 12/20/2024 Orders Only [facility] External Provider, [facility] 12/14/2024 Travel 12/12/2024 Patient Outreach [address] [address] Shereen Latham MD Transition Of Care (Tcm) 12/10/2024 Orders Only GENERIC EXTERNAL DATA DEPARTMENT Provider, Generic External Data 12/09/[address] [address] Shereen Latham MD Nurse Triage 12/07/[address] [address] Shereen Latham MD ER Follow-up 12/06/2024 Orders Only GENERIC EXTERNAL DATA DEPARTMENT Provider, Generic External Data 12/03/2024 Travel 11/25/2024 Orders Only [facility] MEDICINE [address] [place] [address] Shereen Latham MD Vaginal lesion (Primary Dx) 11/23/2024 3:30 PM EST Telemedicine [facility] MED[facility] [address] [place] [address] Nupur Bullock PharmD Benign essential hypertension (Primary Dx) 11/23/[address] [address] Shereen Latham MD Referral 11/22/2024 Refill [facility] [address] [place] [address] Shereen Latham MD Pain 11/22/2024 Patient Outreach [facility] [address] [place] [address] Shereen Latham MD Transition Of Care (Tcm) 11/18/2024 Telephone [facility] [address] [place] [address] Violetta Mackey MA Breast Cancer Screening 11/17/2024 2:40 PM EST Office Visit [facility] [address] [place] [address] Shereen Latham MD Benign essential hypertension (Primary Dx); Depression with anxiety 11/17/2024 Travel 11/17/[address] [address] Shereen Latham MD Nurse Triage 2024 Travel 11/10/[address] [address] Shereen Latham MD Nurse Triage 11/10/2024 Refill [facility] [address] [place] [address] Shereen Latham MD Benign essential hypertension 11/09/2024 11:30 AM EST Office Visit [facility] [address] [place] [address] Shereen Latham MD Gout of foot, unspecified cause, unspecified chronicity, unspecified laterality (Primary Dx); Mild intermittent reactive airway disease without complication; Benign essential hypertension; Severe episode of recurrent major depressive disorder, with psychotic features (CMS/HCC); Alcohol use disorder, moderate, dependence (CMS/HCC); Dietary counseling; Exercise counseling; Overweight; Hypomagnesemia; Anemia, unspecified type; Cardiac risk counseling; History of right breast cancer 11/09/2024 Travel from Last 3 Months Immunizations Name Administration [...] is your housing situation today? I have fritzteodora jaimes 12/29/[address] you [...] the past 12 months, has t he [employer] gas, oil or water company threatened to [...] [facility] DIABETES/NUTRITION [address] [place] [address] Ernestina Esteban, KATE [address] [place] [address] 02/17/2025 2:30 PM EDT Office Visit [facility] ADULT DENTAL [address] [place] [address] Isa De La Rosa, DDS [address] [place] [address] 03/29/2025 2:00 PM EDT Office Visit [facility]ENT[facility] [address] [place] [address] Jenny Gordon [address] [place] [address] 04/25/2025 2:30 PM EDT Medication Management [facility] MEDIC[facility] [address] [place] [address] Nupur Bullock, PharmD [address] [place] [address] Health Maintenance Due Date Last Done Comments CT Colonography 1973 FIT 1973 FOBT 1973 Sigmoidoscopy 1973 Dental X-Ray: Full Mouth 07/07/2022 07/06/2019 Zoster Vaccines (1 of 2) 2023 Dental Oral Exam 12/19/2024 06/17/2024, 07/06/2019 Dental [...] QL NAAT Routine 12/06/2024 9:42 AM EST PROPHYLAXIS - ADULT Routine 09/28/2024 9 [...] Routine screening for STI (sexually transmitted infection) LAB COLOGUARD?? COLON CANCER SCREEN Routine 08/27/2023 11:24 AM EDT Colon cancer screening INTRAORAL - COMPLETE SERIES OF RADIOGRAPHIC IMAGES Routine 07/06/2019 12:00 AM EDT ZZZ HISTORICAL HPV MRNA E6/E7 Routine 08/12/2018 10:57 AM EDT from Last 3 Months or Most Recently Relevant to Health Maintenance Results * D Dimer High Sensitivity (01/19/2025 4:33 PM EDT) D Dimer High Sensitivity <150 NG/ML [facility] Comment:D-DIMER HS REFERENCE RANGENote: Our assay [...] Provider LAB BLOOD ORDERAB LES Final Result [facility] [address] [place] [phone] * High Sensitivity Troponin I (01/19/2025 4:33 PM EDT) Only the most recent of2 resultswithin the time period is included. [facility] TROPONIN I HIGH SENSITIVITY 7.8 <3.5 - 17.0 ng/L [facility] Comment:The Henriquez high sens itivity Troponin-I results should beused in conjunction with other diagnostic information suchas ECG, clinical observations and information, and patientsymptoms to aid in the diagnosis of PR. 01/19/2025 4:33 PM EDT 01/19/2025 4:34 PM EDT Generic External Data Provider LAB BLOOD ORDERAB LES Final Result Performing Organization Address [facility] Co de Phone Number [facility] [address] [place] [phone] * B Type Natriuretic Peptide (BNP) (01/19/2025 4:33 PM EDT) Only the most recent of2 resultswithin the time period is included. [facility] B Type Natriuretic Peptide 22 <100 pg/mL [facility] 01/19/2025 4:33 PM EDT 01/19/2025 4:34 PM EDT us Generic External Data Provider LAB BLOOD ORDERAB LES Final Result Performing Organization Address [facility] Co de Phone Number [facility] [address] [place] [phone] * (ABNORMAL) CBC auto differential (12/29/2024 10:53 AM EST) Only the most recent of3 resultswithin the time period is included. [facility] White Blood Count 13.5(H) 4.8 - 10.8 X10*3/uL [facility] Red Blood Count 3.97(L) 4.20 - 5.50 X10*6/uL [facility] Hemoglobin 11.4(L) 12.0 - 16.0 g/dl [facility] Hematocrit 36.4(L) 37.0 - 47.0 % [facility] Mean Corpuscular Volume 91.7 80.0 - 98.0 fL [facility] Mean Corpuscular Hemoglobin 28.7 27.0 - 33.0 pg [facility] Mean Corpuscular HGB Conc 31.3 31.0 - 35.0 g/dl [facility] Red Cell Distribution Width 14.8 11.0 - 16.0 % [facility] Platelet Count 370 160 - 400 X10*3/uL [facility] Mean Platelet Volume 10.2 9.4 - 12.3 fL [facility] Neutrophils Percent Auto 70.1 45 - 73 % [facility] Imm Gran Pct Auto 1.8(H) 0.0 - 0.4 % [facility] Lymphocytes Percent Auto 18.9(L) 20 - 40 % [facility] Monocytes Percent Auto 7.8 2 - 11 % [facility] Eosinophils Percent Auto 0.7 0 - 4 % [facility] Basophils Percent Auto 0.7 0 - 2 % [facility] NRBC Pct Auto 0.0 0.0 - 0.2 /100WBC [facility] Neutrophils Absolute Auto 9.5(H) 2.0 - 8.3 x10*3/uL [facility] Imm Gran Abs Auto 0.25(H) 0.00 - 0.03 X10*3/uL [facility] Lymphocytes Absolute Auto 2.6 1.2 - 4.9 X10*3/uL [facility] Monocytes Absolute Auto 1.1 0.1 - 1.2 X10*3/uL [facility] Eosinophils Absolute Auto 0.1 0.0 - 0.4 X10*3/uL [facility] Basophils Absolute Auto 0.1 0.0 - 0.2 X10*3/uL [facility] NRBC Abs Auto 0.000 0.0 - 0.012 X10*3/uL [facility] 12/29/2024 10:5 3 AM EST 12/29/2024 1:06 PM EST Generic External Data Provider LAB BLOOD ORDERAB LES Final Result Performing Organization Address [facility] Co de Phone Number [facility] [address] [place] [phone] * (ABNORMAL) Uric acid (12/29/2024 10:53 AM EST) Uric Acid 5.8(H) 2.4 - 5.7 mg/dL [facility] Blood Venous blood specimen / Unknown 12/29/2024 10:53 AM EST 12/29/2024 1:06 PM EST Shereen Latham MD LAB BLOOD ORDERABLES Final Result Performing Organization Address [facility] Co nd Phone Number [facility] [address] [place] [phone] * Magnesium (12/29/2024 10:53 AM EST) Only the most recent of2 resultswithin the time period is included. Pathologist [facility] Magnesium 1.8 1.6 - 2.6 mg/dL [facility] Blood Venous blood specimen / Unknown 12/29/2024 10:53 AM EST 12/29/2024 1:06 PM EST Shereen Latham MD LAB BLOOD ORDERABLES Final Result Performing Organization Address [facility] Co de Phone Number [facility] [address] [place] [phone] * (ABNORMAL) Lipid Panel, Standard (12/29/2024 10:53 AM EST) Triglycerides 192(H) <150 mg/dL [facility] Comment:Desirable Triglyceri de: less than [...] 190 mg/dL HDL Cholesterol 48 >40 mg/dL [facility] Comment:Desirable HDL: great er than 40 mg/dL Note: This HDL assay may give artificially low results in patients with liver disease. Blood Venous blood specimen / Unknown 12/29/2024 10:53 AM EST 12/29/2024 1:06 PM EST us Shereen Latham MD LAB BLOOD ORDERABLES Final Result [facility] [address] [place] [phone] * (ABNORMAL) Basic Metabolic Panel (12/29/2024 [...] Kidney Disea se: Estimated GFR < 60 mL/min/1.79a8Srjrly Kidney Disease: Estimated GFR < 15 mL/min/1.73m2 Glucose 161(H) 60 - 115 mg/dL [facility] Calcium 9.3 8.4 - 10.2 mg/dL [facility] Blood Venous blood specimen / Unknown 12/29/2024 10:53 AM EST 12/29/2024 1:06 PM EST Shereen Latham MD LAB BLOOD ORDERABLES Final Result [facility] [address] [place] [phone] * XR Knee 1-2 Views Right (12/20/2024 7:45 AM EST) Anatomical Region Laterality Modality Lower Extremities, Knee Right Radiogra phic Imaging 12/20/2024 7:45 AM EST Narrative 12/20/2024 8:20 AM EST ? [facility] ?[address] ?[place] [address] ?XRay Report ? Signed ? Patient: Azra Cast ?MR#: [id number] ?? 3774 ? : 1975 ?Acct:[id number] ? Age/Sex: 49 / F ?ADM Date: 12/20/24 ? Loc: HO.ED ? Attending Dr: ? Ordering Physician: Boby Dykes MD ?? Date of Service: 12/20/24 ?? Procedure(s): XR knee RT 2V ?? Accession Number(s): [id number] ? cc: Shereen Latham MD; Boby Dykes [...] DD/ 0745 ? TD/TT: 12/20/24 0751 ? Tin Pot Operator: ? Procedure Note Donotmalouinterpreter, Image - 12/20/[address] [address] XRay Report Signed Patient: Maged Cast#: [id number] : 1975Acct:[id number] Age/Sex: 49 / FADM Date: 12/20/24 Loc: HO.ED Attending Dr: Ordering Physician: Boby Dykes MD Date of Service: 12/20/24 Procedure(s): XR knee RT 2V Accession Number(s): [id number] cc: Shereen Latham MD; Boby Dykes MD [...] 12/20/24 0817 DD/ 0745 TD/TT: 12/20/24 0751 Tin Pot Operator: us [facility] External Provider IMG XR PROCEDURES Edited Result - Final * XR Chest 1 View (12/11/2024 12:34 AM EST) Anatomical Region Laterality Modality Chest Radiographic Celina ging 12/11/2024 12:3 4 AM EST Narrative 12/11/2024 12:37 AM EST ? [facility] ?[address] ?[place], [place] [address] ?XRay Report ? Signed ? Patient: Azra Cast ?MR#: [id number] ?? 3774 ? : 1975 ?Acct:[id number] ? Age/Sex: 49 / F ?ADM Date: 12/10/24 ? Loc: HO.ED ? Attending Dr: ? Ordering Physician: Sury Bustamante MD ?? Date of Service: 12/10/24 ?? Procedure(s): XR chest 1V ?? Accession Number(s): [id number] ? cc: Shereen Latham MD; Sury Bustamante MD ? CLINICAL HISTORY: chest pain cough ? 1 view chest x-ray ? Comparison: CR/AK - XR CHEST 2V - 10/31/24 17:50 [...] in OV> ?12/11/2435 ? DD/ ? TD/TT: 12/11/2433 ? Tin Pot Operator: ? Procedure Note Gypsy Jonas - 12/11/[address] [address] XRay Report Signed Patient: Adriana CastPierce#: [id number] : 1975Acct:[id number] Age/Sex: 49 / FADM Date: 12/10/24 Loc: HO.ED Attending Dr: Ordering Physician: Sury Bustamante MD Date of Service: 12/10/24 Procedure(s): XR chest 1V Accession Number(s): [id number] cc: Shereen Latham MD; Sury Bustamante MD CLINICAL HISTORY: chest pain cough 1 view chest x-ray Comparison: CR/AK - XR CHEST 2V - 10/31/24 17:50 EST Findings: No consolidation or effusion. Heart size is normal. No acute fracture. Right breast implant. IMPRESSION: 1. No acute cardiopulmonary findings. This document has been electronically signed by: Ashley Vazquez MD on 12/11/2024 00:34:57 Dictated By: Ashley Vazquez MD Signed By: <Electronically signed by Ashley Vazquez MD in OV> 12/11/2435 DD/ TD/TT: 12/11/2433 Tin Pot Operator: [facility] External Provider IMG XR PROCEDURES Final Result * SARS-CoV-2 RNA, Influenza A/B, and RSV RNA, Ql NAAT (12/10/2024 11:48 PM EST) Only the most recent of2 resultswithin the time period is included. Influenza A PCR NEGATIVE Negative [facility] Influenza B PCR NEGATIVE Negative [facility] Resp Syncy Virus RNA Qual PCR NEGATIVE Negative [facility] SARS COV2 PCR NEGATIVE Negative [facility] Comment:All test results mus t [...] use by authorized laboratories.Testing performed on the [employer] GeneXpert utilizingreal-time RT-PCR.All SARS CoV2 and positive influenza A/B results arereported to [facility]. 12/10/2024 11:4 8 PM EST 12/10/2024 11:53 PM EST us Generic External Data Provider LAB MICROBIOLOGY - GENERAL ORDERABLES Final Result [facility] [address] [place] [phone] [phone] * (ABNORMAL) Comprehensive Metabolic Panel (12/10/2024 11:48 PM EST) Only the most recent of2 resultswithin the time period is included. Sodium 143 135 - 145 mmol/L [facility] Potassium 3.7 3.3 - 5.1 mmol/L [facility] Chloride 108 96 - 108 mmol/L [facility] Carbon Dioxide 23 22 - 29 mmol/L [facility] Anion Gap 16 12 - 20 [facility] Urea Nitrogen (BUN) 24(H) 9 - 16 mg/dL [facility] Creatinine, Serum 1.11 0.5 - 1.4 mg/dL [facility] Creatinine Clr Calc Pharmacy 69.3 [facility] Comment:Provided height and weight: 170.18 cm,90.7 kg.eGFR (calculated from the MDRD study equation) and eCrCl(calculated from the Cockcroft-Gault equation) are based ondifferent parameters and may not yield comparable results.If eCrCl result is absurd, please check patient'sheight/weight. Estimated Glomerular Filt Rate 52 [facility] Comment:Chronic Kidney Disea se: Estimated GFR < 60 mL/min/1.44m3Kwcewd Kidney Disease: Estimated GFR < 15 mL/min/1.73m2 Glucose 150(H) 60 - 115 mg/dL [facility] Calcium 9.3 8.4 - 10.2 mg/dL [facility] Bilirubin, Total 0.2 0.0 - 1.0 mg/dL [facility] Aspartate Amino Transferase 19 5 - 31 U/L [facility] Alanine Aminotransferase 14 0 - 31 U/L [facility] Total Protein 7.6 6.5 - 8.0 g/dL [facility] Albumin Level 4.0 3.5 - 5.0 g/dL [facility] Alkaline Phosphatase 87 39 - 117 U/L [facility] 12/10/2024 11:4 8 PM EST 12/10/2024 11:53 PM EST us Generic External Data Provider LAB BLOOD ORDERAB LES Final Result [facility] [address] [place] [phone] * CT Abdomen Pelvis w/ Contrast (12/06/2024 1:20 PM EST) Anatomical Region Laterality Modality Body, Pelvis, Abdomen Computed T omography 12/06/2024 1:20 PM EST Narrative 12/06/2024 2:00 PM EST ? [facility] ?[address] ?[place] [address] ? CT Scan Report ? Signed ? Patient: Azra Cast ?MR#: [id number] ?? 3774 ? : 1975 ?Acct:[id number] ? Age/Sex: 49 / F ?ADM Date: 12/06/24 ? Loc: HO.ED ? Attending Dr: ? Ordering Physician: Leighann Ordonez DO ?? Date of Service: 12/06/24 ?? Procedure(s): CT abdomen pelvis w IV con ?? Accession Number(s): [id number] ? cc: Shereen Latham MD; Leighann Ordonez DO ? Report Number: ?? [id number]: Total DLP = ??712.00 mGy-cm ?? EXAMINATION: [...] DD/ 1320 ? TD/TT: 12/06/24 1333 ? Tin Pot Operator: ? Procedure Note Sumi, Image - 12/06/[address] [place] [address] [address] Scan Report Signed Patient: Maged Cast#: [id number] : 1975Acct:[id number] Age/Sex: 49 / FADM Date: 12/06/24 Loc: HO.ED Attending Dr: Ordering Physician: Leighann Ordonez DO Date of Service: 12/06/24 Procedure(s): CT abdomen pelvis w IV con Accession Number(s): [id number] cc: Shereen Latham MD; Leighann Ordonez DO Report Number: [id number]: Total DLP = 712.00 mGy-cm EXAMINATION: CT [...] 12/06/2024 01:58 PM EST Dictated By: Waldemar eReves MD Signed By: <Electronically signed by Waldemar Escobar MDin OV> 12/06/24 1358 DD/ 1320 TD/TT: 12/06/24 1333 Tin Pot Operator: [facility] External Provider IMG CT PROCEDURES Final Result * Urinalysis w/reflex microscopic (12/06/2024 11:14 AM EST) Color Urine Yellow [facility] Appearance Urine Clear [facility] PH 6.0 5.0 - 9.0 [facility] Glucose Urine UA Negative Negative mg/dL [facility] Urine Blood Negative Negative [facility] Specific [place] - Urine 1.025 1.005 - 1.025 [facility] Urine Protein Negative Neg-Trace mg/dL [facility] Urine Ketones Negative Negative mg/dL [facility] Nitrite Urine Negative Negative [facility] Leukocyte Esterase Urine Negative Negative [facility] 12/06/2024 11:1 4 AM EST 12/06/2024 11:18 AM EST Narrative [facility] - 12/06/2024 11:22 AM EST Urine, Clean Catch us Generic External Data Provider LAB URINE ORDERAB LES Final Result Performing Organization Address [facility] Co de Phone Number [facility] [address] [place] [phone] * Lipase (12/06/2024 9:42 AM EST) Pathologist [facility] Lipase 50 8 - 78 U/L [facility] 12/06/2024 9:42 AM EST 12/06/2024 9:45 AM EST us Generic External Data Provider LAB BLOOD ORDERAB LES Final Result Performing Organization Address [facility] de Phone Number [facility] [address] [place] [phone] * (ABNORMAL) Colonoscopy (07/11/2024) [facility] Colonoscopy Abnormal( A) Normal Comment:Herberth Stokes MD ?tubular adenoma x 3 us Herberth Stokes MD HEALTH MAINTENANCE Final Result * Hepatitis Panel, General (06/16/2024 8:22 AM EDT) [facility] Hepatitis A IgM Nonreactive Nonreactive [facility] Comment:IgM antibodies to VIRAMONTES V not detected; does not exclude earlyacute or recovered HAV infection. ~Hepatitis B Surface Antibody REACTIVE Nonreactive [facility] Comment:REACTIVE: > 11.99 mI U/mL Hepatitis B Core Antibody Nonreactive Nonreactive [facility] Hepatitis C Antibody Nonreactive Nonreactive [facility] Comment:Antibodies to HCV no t detected; does not exclude early acuteHCV infection. Hepatitis B Surface Ag Negative Negative [facility] Blood Venous blood specimen / Unknown 06/16/2024 8:22 AM EDT 06/16/2024 11:18 AM EDT Shereen Latham MD LAB BLOOD ORDERABLES Final Result Performing Organization Address [facility]/ZIP Co de Phone Number [facility] [address] [place] [phone] * HIV-1/2 Antigen and Antibodies, Fourth Generation, with Reflexes (02/24/2024 8:47 AM EDT) HIV AB/AG Nonreactive Nonreactive [facility] Comment:HIV-1 p24 Ag and/or HIV-1/HIV-2 Ab not detected.A test result that is nonreactive does not exclude thepossibility of exposure to or infection with HIV-1 and/orHIV-2. Nonreactive results in this assay for individualswith prior exposure to HIV-1 and/or HIV-2 may be due toantigen and antibody levels that are below the limit ofdetection of this assay.The [email or web address] HIV Ag/Ab Combo assay result andsupplemental assay results should be interpreted inconjunction with the patient's clinical presentation,history and other laboratory results. If the results areinconsistent with clinical evidence, additional testing issuggested to confirm the result. Blood Venous blood specimen / Unknown 02/24/2024 8:47 AM EDT 02/24/2024 11:22 AM EDT us Naomi ORDAZ LAB BLOOD ORDERABLES Final Resul t Performing Organization Address City/[facility]/ZIP Co de Phone Number [facility] [address] [place] [phone] * (ABNORMAL) Cologuard?? colon cancer screening (08/27/2023 11:24 AM EDT) Cologuard Result Positive( A) Negative 09/05/2023 10:16 PM EDT [facility] (CLIA #:[id number]) Comment: POSITIVE TEST RESULT. A positive Cologuard [...] (Felix Mccoy al, N Engl J Med 2014;370(14):2168-4372.) Cologuard may produce a false negative or [...] can be accessed at the following location: [email or web address]. Additional description of the Cologuard test process, warnings and precautions can be found at [email or web address]. Stool specimen (specimen) 08/27/2023 11:24 AM EDT 08/29/2023 6:48 AM EDT Shereen Latham MD LAB MOLECULAR DIAGNOSTICS ORDERABLES Final Result [facility] (CLIA #:[id number]) [address] [place] [address], * HPV mRNA E6/E7 (08/12/2018 10:57 AM EDT) HPV mRNA E6/E7 Not Detected NOT DETECTED [facility] Comment: This test was performed using the APTIMA(R) HPV Assay ([employer] This assay detects E6/E7 viral messenger RNA (mRNA) from 14 high-risk HPV types (16,18,31,33,35,39,45,51, 52,56,58,59,66,68). For additional information please refer to: http://education.[employer]/faq/XEJ588l9 (This link is being provided for informational/ educational purposes only.) The analytical performance characteristics of this assay have been determined by [facility] [place] [place]. The modifications have not been cleared or approved by the FDA. This assay has been validated pursuant to the CLIA regulations and is used for clinical purposes. Test Performed by [facility], [facility] [place], [address] [place] [address] Dwaine Morelos M.D., Ph.D., Director of Laboratories , CLIA [id number] Please note: ??Effective 07/14/2016, HPV testing will be performed using [employer]'s APTIMA test which targets mRNA. Detecting mRNA instead of DNA, as in older methods, offers significant improvements in specificity. 08/12/2018 10:5 7 AM EDT Shereen Latham MD HISTORICAL/NON ORDERABLE L ABS Final Result [facility] Anywhere [address] from Last 3 Months or Most Recently Relevant to Health Maintenance Insurance [place] C3 DENTAL-[facility] MEDICAID STAND AD[place] Advance Directives Documents on File Type Date Recorded Patient Hospitalist Program Director Expl anation Advance Directives and Living Will 07/05/2024 11:59 AM Health Care Proxy Care Teams Die Maker Stamping Relationship Specialty Start Date End Date Noa, MD Shereen [address] [place] [address] PCP - General Family Medicine 11/02/18 Nupur Bullock PharmD [address] [place] [address] Pharmacist Internal Medicine 08/09/24 Sury Benitez [address] [place] [address] [address] Pulmonary Disease 09/27/24 Nirali Madrid OD [address] [place] [address] Optometry 10/27/24 Li Grande MD [address] [place] [phone] Hematology and Oncology 10/27/24 Anselmo Gates MD [address] [place] [address] Orthopaedic Surgery 10/27/24 Margaret Holman [address] [place] [address] Cardiology 10/27/24 Herberth Stokes MD [address] [place] [address] Gastroenterology 10/27/24 Hilton Palacios MD [address] [place] [address], [address] [place] [address] Neurology 02/06/25 Pily Delaney Corporate CoordinatorTrade Recruiter 07/22/24 Elie Vicky [facility] 12/29/24
--- OUTSIDE RECORDS SUMMARY | 2025-02-07 11:10 | XMS_ITS | Encounter Summary ---
Author Organization [employer] Address [address] [facility] 7t [place] [address] Care Team Providers Care Program Schedule Clerk Name Role Phone Shereen Latham MD Primary Care Provider [phone] Nupur Bullock PharmD Unavailable Sury Benitez Unavailable [phone] Nirali Madrid OD Unavailable [phone] Li Grande MD Unavailable [phone] Anselmo Gates MD Unavailable Margaret Holman Unavailable Herberth Stokes MD Unavailable [phone] Hilton Palacios MD Unavailable [phone] Reason for Visit * Reason Comments Med Refill Encounter Details Date Type Department Care Team (Late st Contact Info) Description 01/17/2025 Refill [facility] [address] [place], [place] [phone] Shereen Latham MD 230 [place], [place] [phone] Pain Social History Tobacco Use Types Packs/Day [...] 2:00 PM EDT Clinical Support [facility] DIABETES/NUTRITION [address] [place] [address] [place] [address] 02/17/2025 2:30 PM EDT Office Visit [facility] ADULT DENTAL [address] [place] [address] Paz-Isa Connor, DDS [address] [place] [address] 03/29/2025 2:00 PM EDT Office Visit [facility] [address] [place] [address] Heidi, Jenny [address] [place] [address] 04/25/2025 2:30 PM EDT Medication Management [facility] MEDICINE [address] [place] [address] Nupur Bullock PharmD [address] [place] [address] documented as of this encounter Visit Diagnoses Diagnosis Pain Generalized pain documented in this encounter Additional Health Concerns Assessment Noted Time PHQ-9 Depression Total Score: 22 025 10:17 AM EST documented as of this encounter Care Teams Program Schedule Clerk Relationship Specialty Start Date End Date Shereen Latham MD [address] [place] [address] PCP - General Family Medicine 11/02/18 Nupur Bullock, PharmD [address] [place] [address] Pharmacist Internal Medicine 08/09/24 Sury Benitez [address] [place] [address] [place] [address] Pulmonary Disease 09/27/24 Nirali Madrid OD [address] [place] [address] Optometry 10/27/24 Li Grande MD [address] [place] [address] Hematology and Oncology 10/27/24 Anselmo Gates MD [address] [place] [address] Orthopaedic Surgery 10/27/24 Margaret Holman [address] 3rd [place] [address] Cardiology 10/27/24 Herberth Stokes MD [address] 3rd [place] [address] Gastroenterology 10/27/24 Hilton Palacios MD [address] [facility], [address] [place] [address] Neurology 02/06/25 Pily Delaney Cold Meat ChefMedical Lab Technologist 07/22/24 Elie Vicky [facility] 12/29/24 documented as of this encounter
--- OUTSIDE RECORDS SUMMARY | 2025-02-07 11:10 | XMS_ITS | Encounter Summary ---
Author Organization [employer] Address 75 [facility] 7t [place] [address] Care Team Providers Care Research Environmental Engineer Name Role Phone Shereen Latham MD Primary Care Provider Nupur Bullock PharmD Unavailable Sury Benitez Unavailable [phone] Nirali Madrid OD Unavailable [phone] Li Grande MD Unavailable [phone] Anselmo Gates MD Unavailable Margaret Holman Unavailable Herberth Stokes MD Unavailable [phone] Hilton Palacios MD Unavailable Reason for Referral * Consultation (Routine) - Closed Specialty Diagnoses / Procedures Referred By Walter nelson Referred To Contact Obstetrics and Gynecology Diagnoses Women's annual routine gynecological examination Stacey Khan MD 230 [place] [address] Phone: tel: fax: [facility] Women? s Services [address] 5th Floor [address] (Main Hospital Entrance) [place], [place] Phone: tel: fax: Referral ID Status Reason Start Date Expiration Date V isits Requested Visits Authorized [id number] Closed Specialty Services Required 01/19/2025 01/19/2026 9 9 Encounter Details Date Type Department Care Team (Late st Contact Info) Description 01/19/2025 Orders Only [facility] MEDICINE [address] [place] [address] Stacey Khan MD [address] [place], [place] [phone] Women's annual routine gynecological examination (Primary Dx) [...] 02/13/2025 2:00 PM EDT Clinical Support [facility] DIABETES/NUTRITION 230 [place] [address] Ernestina Esteban, RD 230 [place] [address] 02/17/2025 2:30 PM EDT Office Visit [facility] ADULT DENTAL [address] [place] [address] Paz-Connor, Isa, DDS [address] [place] [address] 03/29/2025 2:00 PM EDT Office Visit [facility] ADULT DENTAL [address] [place] [address] Heidi, Jenny [address] [place] [address] 04/25/2025 2:30 PM EDT Medication Management [facility] MEDICINE [address] [place] [address] Nupur Bullock, PharmD 230 [place] [address] Scheduled Referrals Name Type Priority Associated Diagnoses [...] Sensitivity Troponin I (01/19/2025 4:33 PM EDT) [facility] TROPONIN I HIGH SENSITIVITY 7.8 <3.5 - 17.0 ng/L [facility] Comment:The Henriquez high sens itivity Troponin-I results should beused in conjunction with other diagnostic information suchas ECG, clinical observations and information, and patientsymptoms to aid in the diagnosis of [place]. 01/19/2025 4:33 PM EDT 01/19/2025 4:34 PM EDT us Generic External Data Provider LAB BLOOD ORDERAB LES Final Result Performing Organization Address [facility]/ZIP Co de Phone Number [facility] [address] [place] [phone] * B Type Natriuretic Peptide (BNP) (01/19/2025 4:33 PM EDT) [facility] B Type Natriuretic Peptide 22 <100 pg/mL [facility] 01/19/2025 4:33 PM EDT 01/19/2025 4:34 PM EDT Generic External Data Provider LAB BLOOD ORDERAB LES Final Result Performing Organization Address [facility]/ZIP Co de Phone Number [facility] [address] [place] [phone] * D Dimer High Sensitivity (01/19/2025 4:33 PM EDT) [facility] D Dimer High Sensitivity <150 NG/ML [facility] Comment:D-DIMER HS REFERENCE RANGENote: Our [...] Provider LAB BLOOD ORDERAB LES Final Result [facility] [address] [place] [address] [phone] documented in this encounter Visit Diagnoses Diagnosis Women's annual routine gynecological examination- Primary documented in this encounter Additional Health Concerns Assessment Noted Time PHQ-9 Depression Total Score: 22 025 10:17 AM EST documented as of this encounter Care Teams Research Environmental Engineer Relationship Specialty Start Date End Date Shereen Latham MD [address] [place] [address] PCP - General Family Medicine 11/02/18 Nupur Bullock, CharleneD 230 [place] [address] Pharmacist Internal Medicine 08/09/24 Sury Benitez [address] [place] [address] Dr [address] [place] [address] Pulmonary Disease 09/27/24 Nirali Madrid, OD [address] [place] [address] Optometry 10/27/24 Li Grande MD [address] [place] [address] Hematology and Oncology 10/27/24 Anselmo Gates MD [address] [place] [address] Orthopaedic Surgery 10/27/24 Margaret Holman [address] [facility] [address] 3rd [place] [address] Cardiology 10/27/24 Herberth Stokes MD [address] [facility] [address] 3rd [place] [address] Gastroenterology 10/27/24 Hilton Palacios MD [address] [place] [address] DR, [address] [place] [address] Neurology 02/06/25 Pily Delaney Qual Field ManagerNail Kegger 07/22/24 Elie BRASHER [facility] Psychology 12/29/24 documented as of this encounter
--- OUTSIDE RECORDS SUMMARY | 2025-02-07 11:10 | XMS_ITS | Encounter Summary ---
Author Organization [employer] Address 75 [facility] 7t [place] [address] Care Team Providers Care Braker Passenger Train Name Role Phone Shereen Latham MD Primary Care Provider [phone] Nupur Bullock PharmD Unavailable Sury Benitez Unavailable [phone] Nirali Madrid OD Unavailable Li Grande MD Unavailable [phone] Anselmo Gates MD Unavailable Margaret Holman Unavailable Herberth Stokes MD Unavailable [phone] Hilton Palacios MD Unavailable Encounter Details Date Type Department Care Team (Late st Contact Info) Description 05/02/2024 Orders Only [facility] MEDICINE 230 [place], [place] [phone] Shereen Latham MD 230 [place], [place] [phone] Gout, unspecified cause, unspecified chronicity, unspecified site [...] Description 02/13/2025 2:00 PM EDT Clinical Support [facility] DIABETES/NUTRITION 230 [place] [address] 230 [place] [address] 02/17/2025 2:30 PM EDT Office Visit [facility] ADULT DENTAL 230 [place] [address] Paz-Connor Isa, DDS 230 [place] [address] 03/29/2025 2:00 PM EDT Office Visit [facility] ADULT DENTAL 230 [place] [address] Heidi, Jenny 230 [place] [address] 04/25/2025 2:30 PM EDT Medication Management [facility] [address] [place] [address] Nupur Bullock PharmD [address] [place] [address] documented as of this encounter Visit Diagnoses Diagnosis Gout, unspecified cause, unspecified chronicity, unspecified site- Primary documented in this encounter Additional Health Concerns Assessment Noted Time PHQ-9 Depression Total Score: 23 024 1:45 PM EDT documented as of this encounter Care Teams Braker Passenger Train Relationship Specialty Start Date End Date Shereen Latham MD [address] [place] [address] PCP - General Family Medicine 11/02/18 Nupur Bullock, PharmD [address] [place] [address] Pharmacist Internal Medicine 08/09/24 Sury Benitez [address] [place] [address] [place] [address] Pulmonary Disease 09/27/24 Nirali Madrid OD [address] [place] [address] Optometry 10/27/24 Li Grande MD [address] [place] [address] Hematology and Oncology 10/27/24 Anselmo Gates MD [address] [place] [address] Orthopaedic Surgery 10/27/24 Margaret Holman [address] [facility] [address] 3rd [place] [address] Cardiology 10/27/24 Herberth Stokes MD [address] [facility] [address] 3rd [place] [address] Gastroenterology 10/27/24 Hilton Palacios MD [address] [facility], [address] [place] [address] Neurology 02/06/25 Pily Delaney Pediatric Genetic CounselorManager Parking 07/22/24 Elie Vicky [facility] 12/29/24 documented as of this encounter
--- OUTSIDE RECORDS SUMMARY | 2025-02-07 11:10 | XMS_ITS | Encounter Summary ---
Author Organization [employer] Address 75 [facility] 7t [place] [address] Care Team Providers Care Unionmelt Operator Name Role Phone Shereen Latham MD Primary Care Provider [phone]- [phone] Nupur Bullock PharmD Unavailable Sury Benitez Unavailable [phone] Nirali Madrid OD Unavailable [phone] Li Grande MD Unavailable [phone] Anselmo Gates MD Unavailable Margaret Holman Unavailable Herberth Stokes MD Unavailable [phone] Hilton Palacios MD Unavailable Encounter Details Date Type Department Care Team (Late st Contact Info) Description 04/26/2024 Orders Only [facility] MEDICINE 230 [place], [place] [phone] Junie Damon MD 230 [place], [place] [phone] Social History Tobacco Use Types Packs/Day Years [...] Description 02/13/2025 2:00 PM EDT Clinical Support [facility] DIABETES/NUTRITION 230 [place] [address] [place] [address] 02/17/2025 2:30 PM EDT Office Visit [facility] ADULT DENTAL 230 [place] [address] Paz-Connor, Isa, DDS 230 [place] [address] 03/29/2025 2:00 PM EDT Office Visit [facility] ADULT DENTAL 230 [place] [address] Heidi, Jenny 230 [place] [address] 04/25/2025 2:30 PM EDT Medication Management [facility] MEDICINE 230 [place] [address] Nupur Bullock PharmD 230 [place] [address] documented as of this encounter Visit Diagnoses Not on filedocumented in this encounter Additional Health Concerns Assessment Noted Time PHQ-9 Depression Total Score: 23 024 1:45 PM EDT documented as of this encounter Care Teams Unionmelt Operator Relationship Specialty Start Date End Date Shereen Latham MD [address] [place] [address] PCP - General Family Medicine 11/02/18 Nupur Bullock, PharmD [address] [place] [address] Pharmacist Internal Medicine 08/09/24 Sury Benitez [address] [place] [address] [place] [address] Pulmonary Disease 09/27/24 Nirali Madrid OD [address] [place] [address] Optometry 10/27/24 Li Grande MD [address] [place] [address] Hematology and Oncology 10/27/24 Anselmo Gates MD [address] [place] [address] Orthopaedic Surgery 10/27/24 Margaret Holamn [address] 3rd [place] [address] Cardiology 10/27/24 Herberth Stokes MD [address] 3rd [place] [address] Gastroenterology 10/27/24 Hilton Palacios MD [address], [address] [place] [address] Neurology 02/06/25 Pily Delaney Buckle InspectorSupervisor Chemical 07/22/24 Elie BRASHER [facility] Psychology 12/29/24 documented as of this encounter
--- OUTSIDE RECORDS SUMMARY | 2025-02-07 11:11 | XMS_ITS | Clinical Summary ---
Author Organization [facility] it Address [address] [place] [address] Care Team Providers Care Scrap Drop Engineer Name Role Phone Shereen Latham MD Primary Care Provider [phone]- [phone] Social History Tobacco Use Types Packs/Day Years [...] age to complete this topic Meningococcal B Vaccine Aged Out No l onger eligible based on patient's age to complete this topic RSV Immunization Patients Under 20 months Aged Out No longer eligible based on patient's age to complete this topic Varicella Vaccines Aged Out No longer eligible based on patient's age to complete this topic Care Teams Scrap Drop Engineer Relationship Specialty Start Date End Date Shereen Latham MD [address] [place] [phone] PCP - General 01/13/1996
--- OUTSIDE RECORDS SUMMARY | 2025-02-07 11:11 | XMS_ITS | Encounter Summary ---
Author Organization [employer] Address 75 [facility] 7t [place] [address] Care Team Providers Care Healthcare Architect Name Role Phone Shereen Latham MD Primary Care Provider [phone]- [phone] Nupur Bullock PharmD Unavailable Sury Benitez Unavailable [phone] Nirali Madrid OD Unavailable Li Grande MD Unavailable [phone] Anselmo Gates MD Unavailable Margaret Holman Unavailable Herberth Stokes MD Unavailable [phone] Hilton Palacios MD Unavailable [phone] Encounter Details Date Type Department Care Team (Late st Contact Info) Description 10/11/2024 Telephone [facility] MEDICINE [address] [place], [place] [phone] Shereen Latham MD 230 [place], [place] [phone] Social History Tobacco Use Types Packs/Day Years [...] Description 02/13/2025 2:00 PM EDT Clinical Support [facility] DIABETES/NUTRITION 230 [place] [address] [place] [address] 02/17/2025 2:30 PM EDT Office Visit [facility] ADULT DENTAL [address] [place] [address] Paz-Connor, Isa, DDS [address] [place] [address] 03/29/2025 2:00 PM EDT Office Visit [facility] ADULT DENTAL [address] [place] [address] Heidi, Jenny [address] [place] [address] 04/25/2025 2:30 PM EDT Medication Management [facility] MEDICINE [address] [place] [address] Nupur Bullock PharmD [address] [place] [address] documented as of this encounter Visit Diagnoses Not on filedocumented in this encounter Additional Health Concerns Assessment Noted Time PHQ-9 Depression Total Score: 13 024 4:53 PM EDT documented as of this encounter Care Teams Healthcare Architect Relationship Specialty Start Date End Date Shereen Latham MD [address] [place] [address] PCP - General Family Medicine 11/02/18 Nupur Bullock, CharleneD [address] [place] [address] Pharmacist Internal Medicine 08/09/24 Sury Benitez [address] [place] [address] [place] [address] Pulmonary Disease 09/27/24 Nirali Madrid OD [address] [place] [address] Optometry 10/27/24 Li Grande MD [address] [place] [address] Hematology and Oncology 10/27/24 Anselmo Gates MD [address] [place] [address] Orthopaedic Surgery 10/27/24 Margaret Holman [address] 3rd [place] [address] Cardiology 10/27/24 Herberth Stokes MD [address] 3rd [place] [address] Gastroenterology 10/27/24 Hilton Palacios MD [address], [address] [place] [address] Neurology 02/06/25 Pily Delaney Managed Services Sales ConsultantGyroscopic Engineering Technician 07/22/24 Elie BRASHER [facility] Psychology 12/29/24 documented as of this encounter
--- OUTSIDE RECORDS SUMMARY | 2025-02-07 11:11 | XMS_ITS | Encounter Summary ---
Author Organization [employer] Address [address] [facility] 7t [place] [address] Care Team Providers Care Aircraft Cylinder Mechanic Name Role Phone Shereen Latham MD Primary Care Provider [phone] Nupur Bullock PharmD Unavailable Sury Benitez Unavailable [phone] Nirali Madrid OD Unavailable Li Grande MD Unavailable [phone] Anselmo Gates MD Unavailable Margaret Holman Unavailable Herberth Stokes MD Unavailable [phone] Hilton Palacios MD Unavailable Reason for Visit * Reason Onset Date Comments Medication Question 08/25/2024 Encounter Details Date Type Department Care Team (Late st Contact Info) Description 08/25/2024 Telephone [facility] MEDICINE 230 [place], [place] [phone] Shereen Latham MD 230 [place], [place] [phone] Medication Question Social History Tobacco Use Types [...] any questions you can contact pt at [phone]. documented in this encounter Plan of Treatment Upcoming Encounters Date Type Department Care Team (Late st Contact Info) Description 02/13/2025 2:00 PM EDT Clinical Support [facility] DIABETES/NUTRITION 230 [place] [address] Ernestina Esteban, RD 230 [place] [address] 02/17/2025 2:30 PM EDT Office Visit [facility] ADULT DENTAL [address] [place] [address] Paz-Connor Isa, DDS 230 [place] [address] 03/29/2025 2:00 PM EDT Office Visit [facility] ADULT DENTAL [address] [place] [address] Heidi, Jenny [address] [place] [address] 04/25/2025 2:30 PM EDT Medication Management [facility] MEDICINE [address] [place] [address] Nupur Bullock PharmD [address] [place] [address] documented as of this encounter Visit Diagnoses Not on filedocumented in this encounter Additional Health Concerns Assessment Noted Time PHQ-9 Depression Total Score: 13 024 4:53 PM EDT documented as of this encounter Care Teams Aircraft Cylinder Mechanic Relationship Specialty Start Date End Date Shereen Latham MD [address] [place] [address] PCP - General Family Medicine 11/02/18 Nupur Bullock, PharmD [address] [place] [address] Pharmacist Internal Medicine 08/09/24 Sury Benitez [address] [facility] [address] [place] [address] Pulmonary Disease 09/27/24 Nirali Madrid OD [address] [place] [address] Optometry 10/27/24 Li Grande MD [address] [place] [address] Hematology and Oncology 10/27/24 Anselmo Gates MD [address] [place] [address] Orthopaedic Surgery 10/27/24 Margaret Holman [address] 3rd [place] [address] Cardiology 10/27/24 Herberth Stokes MD [address]rd [place] [address] Gastroenterology 10/27/24 Hilton Palacios MD [address] [facility], [address] [place] [address] Neurology 02/06/25 Pily Delaney Custom Motorcycle PainterCq Developer 07/22/24 Elie BRASHER [facility] 12/29/24 documented as of this encounter
--- OUTSIDE RECORDS SUMMARY | 2025-02-07 11:11 | XMS_ITS | Encounter Summary ---
Author Organization [employer] Address 75 [facility] 7t [place] [address] Care Team Providers Care Promotions Executive Name Role Phone Shereen Latham MD Primary Care Provider [phone] Nupur Bullock PharmD Unavailable Sury Benitez Unavailable [phone] Nirali Madrid OD Unavailable Li Grande MD Unavailable [phone] Anselmo Gates MD Unavailable Margaret Holman Unavailable Herberth Stokes MD Unavailable [phone] Hilton Palacios MD Unavailable [phone] Reason for Visit * Reason Onset Date Comments ER Follow-up 12/07/2024 Encounter Details Date Type Department Care Team (Late st Contact Info) Description 12/07/2024 Telephone [facility] MEDICINE 230 [place], [place] [phone] Shereen Latham MD 230 [place], [place] [phone] ER Follow-up Social History Tobacco Use Types [...] TC placed to pt to f/u on [facility] visit on 12/06/2024 for right lower [...] ED visit on : Date: 12/06/24 Hospital: [facility] Seen for: Flu Patient advised will forward to team nurse for follow up documented in this encounter Plan of Treatment Upcoming Encounters Date Type Department Care Team (Late st Contact Info) Description 02/13/2025 2:00 PM EDT Clinical Support [facility] DIABETES/NUTRITION [address] [place] [address] Ernestina Esteban, RD 230 [place] [address] 02/17/2025 2:30 PM EDT Office Visit [facility] ADULT DENTAL [address] [place] [address] Paz-Connor, Isa, DDS 230 [place] [address] 03/29/2025 2:00 PM EDT Office Visit [facility] ADULT DENTAL [address] [place] [address] Heidi, Jenny [address] [place] [address] 04/25/2025 2:30 PM EDT Medication Management [facility] MEDICINE [address] [place] [address] Nupur Bullock, CharleneD 230 [place] [address] documented as of this encounter Visit Diagnoses Not on filedocumented in this encounter Additional Health Concerns Assessment Noted Time PHQ-9 Depression Total Score: 13 024 4:53 PM EDT documented as of this encounter Care Teams Promotions Executive Relationship Specialty Start Date End Date Shereen Latham MD 230 [place] [address] PCP - General Family Medicine 11/02/18 Nupur Bullock, CharleneD 230 [place] [address] Pharmacist Internal Medicine 08/09/24 Sury Benitez [address] [place] [address] [address] [place] [address] Pulmonary Disease 09/27/24 Nirali Madrid OD [address] [place] [address] Optometry 10/27/24 Li Grande MD [address] [place] [address] Hematology and Oncology 10/27/24 Anselmo Gates MD 10 [facility] [address] [place] [address] Orthopaedic Surgery 10/27/24 Margaret Holman 11 [facility] 3rd [place] [address] Cardiology 10/27/24 Herberth Stokes MD 11 [facility] 3rd [place] [address] Gastroenterology 10/27/24 Hilton Palacios MD [address] [place] [address], [address] [place] [address] Neurology 02/06/25 Pily Delaney Material CheckerTaping Machine Operator 07/22/24 Elie Vicky [facility] Psychology 12/29/24 documented as of this encounter
--- OUTSIDE RECORDS SUMMARY | 2025-02-07 11:11 | XMS_ITS | Encounter Summary ---
Author Organization [employer] Address 75 [facility] 7t [place] [address] Care Team Providers Care Photo Studio Assistant Name Role Phone Shereen Latham MD Primary Care Provider [phone] Nupur Bullcok PharmD Unavailable Sury Benitez Unavailable [phone] JuliusNirali castellanos OD Unavailable Li Grande MD Unavailable [phone] Anselmo Gates MD Unavailable Margaret Holman Unavailable Herberth Stokes MD Unavailable [phone] Hilton Palacios MD Unavailable Encounter Details Date Type Department Care Team (Latest Contact Info) Description 07/06/2019 Abstract [facility] CONVERSIONS Dental, Provider, DDS Social History [...] 02/13/2025 2:00 PM EDT Clinical Support [facility] DIABETES/NUTRITION [address] [place] [address] Ernestina Esteban, RD 230 [place] [address] 02/17/2025 2:30 PM EDT Office Visit [facility] ADULT DENTAL [address] [place] [address] Paz-Connor, Isa, DDS 230 [place] [address] 03/29/2025 2:00 PM EDT Office Visit [facility] ADULT DENTAL [address] [place] [address] Heidi, Jenny 230 [place] [address] 04/25/2025 2:30 PM EDT Medication Management [facility] MEDICINE [address] [place] [address] Nupur Bullock, PharmD [address] [place] [address] documented as of this encounter Visit Diagnoses Not on filedocumented in this encounter Care Teams Photo Studio Assistant Relationship Specialty Start Date End Date Shereen Latham MD [address] [place] [address] PCP - General Family Medicine 11/02/18 Nupur Bullock, PharmD [address] [place] [address] Pharmacist Internal Medicine 08/09/24 Sury Benitez [address] [place] [address] [place] [address] Pulmonary Disease 09/27/24 Nirali Madrid OD [address] [place] [address] Optometry 10/27/24 Li Grande MD 575 [place] [address] Hematology and Oncology 10/27/24 Anselmo Gates MD [address] [place] [address] Orthopaedic Surgery 10/27/24 Margaret Holman 11 [facility] 3rd [place] [address] Cardiology 10/27/24 Herberth Stokes MD 11 [facility] 3rd [place] [address] Gastroenterology 10/27/24 Hilton Palacios MD [address] [facility], [address] [place] [address] Neurology 02/06/25 Pily Delaney Vessel MasterConcrete Tester 07/22/24 Elie Vicky [facility] 12/29/24 documented as of this encounter
--- OUTSIDE RECORDS SUMMARY | 2025-02-07 11:11 | XMS_ITS | Encounter Summary ---
Author Organization [employer] Address 75 [facility] 7t [place] [address] Care Team Providers Care Echocardiologist Name Role Phone Shereen Latham MD Primary Care Provider [phone] Nupur Bullock PharmD Unavailable Sury Benitez Unavailable [phone] JuliusNirali castellanos OD Unavailable Li Grande MD Unavailable [phone] Anselmo Gates MD Unavailable Margaret Holman Unavailable Herberth Stokes MD Unavailable [phone] Hilton Palacios MD Unavailable [phone] Encounter Details Date Type Department Care Team (Latest Contact Info) Description 08/16/2021 Abstract [facility] CONVERSIONS Dental, Provider, DDS Social History [...] PM EDT Clinical Support [facility] DIABETES/NUTRITION [address] [place] [address] Ernestina Esteban, RD 230 [place] [address] 02/17/2025 2:30 PM EDT Office Visit [facility] ADULT DENTAL [address] [place] [address] Paz-Connor, Isa, DDS 230 [place] [address] 03/29/2025 2:00 PM EDT Office Visit [facility] ADULT DENTAL [address] [place] [address] Heidi, Jenny 230 [place] [address] 04/25/2025 2:30 PM EDT Medication Management [facility] MEDICINE [address] [place] [address] Nupur Bullokc, PharmD [address] [place] [address] documented as of this encounter Visit Diagnoses Not on filedocumented in this encounter Care Teams Echocardiologist Relationship Specialty Start Date End Date Shereen Latham MD [address] [place] [address] PCP - General Family Medicine 11/02/18 Nupur Bullock, PharmD [address] [place] [address] Pharmacist Internal Medicine 08/09/24 Sury Benitez [address] [place] [address] [place] [address] Pulmonary Disease 09/27/24 Nirali Madrid OD [address] [place] [address] Optometry 10/27/24 Li Grande MD 575 [place] [address] Hematology and Oncology 10/27/24 Anselmo Gates MD [address] [place] [address] Orthopaedic Surgery 10/27/24 Margaret Holman [address] 3rd [place] [address] Cardiology 10/27/24 Herberth Stokes MD [address] 3rd [place] [address] Gastroenterology 10/27/24 Hilton Palacios MD [address] [facility], [address] [place] [address] Neurology 02/06/25 Pily Delaney Cosmetics DemonstratorDirector Video 07/22/24 Elie Vicky [facility] 12/29/24 documented as of this encounter
--- OUTSIDE RECORDS SUMMARY | 2025-02-07 11:11 | XMS_ITS | Encounter Summary ---
Author Organization [employer] Address 75 [facility] 7t [place] [address] Care Team Providers Care Hammer Heater Name Role Phone Shereen Latham MD Primary Care Provider [phone] Nupur Bullock PharmD Unavailable Sury Benitez Unavailable [phone] Nirali Madrid OD Unavailable Li Grande MD Unavailable [phone] Anselmo Gatse MD Unavailable Margaret Holman Unavailable Herberth Stokes MD Unavailable [phone] Hilton Palacios MD Unavailable Reason for Visit * Reason Comments Med Refill Encounter Details Date Type Department Care Team (Late st Contact Info) Description 12/02/2022 Refill [facility] MEDICINE 230 [place], [place] [phone] Shereen Latham MD 230 [place], [place] [phone] Wheeze (Primary Dx); Pain Social History Tobacco [...] 2:00 PM EDT Clinical Support [facility] DIABETES/NUTRITION [address] [place] [address] Ernestina Esteban, RD 230 [place] [address] 02/17/2025 2:30 PM EDT Office Visit [facility] ADULT DENTAL [address] [place] [address] Paz-ConnorAlfredoIsa, DDS 230 [place] [address] 03/29/2025 2:00 PM EDT Office Visit [facility] ADULT DENTAL [address] [place] [address] Heidi, Jenny 230 [place] [address] 04/25/2025 2:30 PM EDT Medication Management [facility] MEDICINE [address] [place] [address] Nupur Bullock, CharleneD [address] [place] [address] documented as of this encounter Visit Diagnoses Diagnosis Wheeze- Primary Wheezing Pain Generalized pain documented in this encounter Care Teams Hammer Heater Relationship Specialty Start Date End Date Shereen Latham MD [address] [place] [address] PCP - General Family Medicine 11/02/18 Nupur Bullock, PharmD [address] [place] [address] Pharmacist Internal Medicine 08/09/24 Sury Benitez [address] [place] [address] Dr [address] [place] [address] Pulmonary Disease 09/27/24 Nirali Madrid OD [address] [place] [address] Optometry 10/27/24 Li Grande MD 575 [place] [address] Hematology and Oncology 10/27/24 Anselmo Gates MD [address] [place] [address] Orthopaedic Surgery 10/27/24 Margaret Holman [address] 3rd [place] [address] Cardiology 10/27/24 Herberth Stokes MD 11 [facility] 3rd [place] [address] Gastroenterology 10/27/24 Hilton Palacios MD 15 [facility], [address] [place] [address] Neurology 02/06/25 Pily Delaney Retail Sales AssociateDiesel Tractor Operator 07/22/24 Elie Vicky [facility] 12/29/24 documented as of this encounter
--- OUTSIDE RECORDS SUMMARY | 2025-02-07 11:11 | XMS_ITS | Encounter Summary ---
Author Organization [employer] Address 75 [facility] 7t [place] [address] Care Team Providers Care Form Setter Name Role Phone Shereen Latham MD Primary Care Provider [phone] Nupur Bullock PharmD Unavailable Sury Benitez Unavailable [phone] Nirali Madrid OD Unavailable Li Grande MD Unavailable [phone] Anselmo Gates MD Unavailable Margaret Holman Unavailable Herberth Stokes MD Unavailable [phone] Hilton Palacios MD Unavailable Reason for Visit * Reason Onset Date Comments Nurse Triage 01/25/2024 Referral 01/25/2024 Encounter Details Date Type Department Care Team (Late st Contact Info) Description 01/25/2024 Telephone [facility] MEDICINE 230 [place], [place] [phone] Shereen Latham MD 230 [place], [place] [phone] Nurse Triage; Referral Social History Tobacco Use [...] vary. Pt wants to be referred to [facility] [address] [facility] [address] [place] [address]. Ad[facility]sed will send to team to review [...] Description 02/13/2025 2:00 PM EDT Clinical Support [facility] DIABETES/NUTRITION 230 [place] [address] Ernestina Esteban, RD 230 [place] [address] 02/17/2025 2:30 PM EDT Office Visit [facility] ADULT DENTAL 230 [place] [address] Paz-Connor, Isa, DDS 230 [place] [address] 03/29/2025 2:00 PM EDT Office Visit [facility] ADULT DENTAL 230 [place] [address] Heidi, Jenny 230 [place] [address] 04/25/2025 2:30 PM EDT Medication Management [facility] MEDICINE 230 [place] [address] Nupur Bullock, PharmD 230 [place] [address] documented as of this encounter Visit Diagnoses Not on filedocumented in this encounter Additional Health Concerns Assessment Noted Time PHQ-9 Depression Total Score: 21 023 10:42 AM EST documented as of this encounter Care Teams Form Setter Relationship Specialty Start Date End Date Shereen Latham MD 230 [place] [address] PCP - General Family Medicine 11/02/18 Nupur Bullock, PharmD [address] [place] [address] Pharmacist Internal Medicine 08/09/24 Sury Benitez [address] [place] [address] Dr [facility] 103 [place] [address] Pulmonary Disease 09/27/24 Nirali Madrid OD [address] [place] [address] Optometry 10/27/24 Li Grande MD [address] [place] [address] Hematology and Oncology 10/27/24 Anselmo Gates MD [address] [facility] [address] [facility] [address] [place] [address] Orthopaedic Surgery 10/27/24 Margaret Holman [address] [facility] [address] [facility] [address] 3rd [place] [address] Cardiology 10/27/24 Herberth Stokes MD 11 [facility] 3rd [place] [address] Gastroenterology 10/27/24 Hilton Palacios MD [address] [place] [address], [address] [place] [address] Neurology 02/06/25 Pily Delaney Life Insurance SpecialistDrafting Engineer 07/22/24 Elie BRASHER [facility] 12/29/24 documented as of this encounter
--- OUTSIDE RECORDS SUMMARY | 2025-02-07 11:11 | XMS_ITS | Encounter Summary ---
Author Organization [employer] Address 75 [facility] 7t [place] [address] Care Team Providers Care Carpet Binder Name Role Phone Shereen Latham MD Primary Care Provider [phone]- [phone] Nupur Bullock PharmD Unavailable [phone] Sury Benitez Unavailable [phone] Nirali Madrid OD Unavailable [phone] Li Grande MD Unavailable [phone] Anselmo Gates MD Unavailable Margaret Holman Unavailable Herberth Stokes MD Unavailable [phone] Hilton Palacios MD Unavailable Encounter Details Date Type Department Care Team (Late st Contact Info) Description 07/27/2023 Orders Only [facility] 230 [place], [place] [phone] Shereen Latham MD 230 [place], [place] [phone] Hypomagnesemia Social History Tobacco Use Types Packs/Day [...] 02/13/2025 2:00 PM EDT Clinical Support [facility] DIABETES/NUTRITION 230 [place] [address] Ernestina Esteban, RD 230 [place] [address] 02/17/2025 2:30 PM EDT Office Visit [facility] ADULT DENTAL 230 [place] [address] Paz-Connor, Isa, DDS 230 [place] [address] 03/29/2025 2:00 PM EDT Office Visit [facility]ULT D[facility]AL 230 [place] [address] Heidi, Jenny 230 [place] [address] 04/25/2025 2:30 PM EDT Medication Management [facility] 230 [place] [address] Nupur Bullock PharmD 230 [place] [address] documented as of this encounter Visit Diagnoses Diagnosis Hypomagnesemia Disorders of magnesium metabolism documented in this encounter Additional Health Concerns Assessment Noted Time PHQ-9 Depression Total Score: 10 023 10:27 AM EDT documented as of this encounter Care Teams Carpet Binder Relationship Specialty Start Date End Date Shereen Latham MD [address] [place] [address] PCP - General Family Medicine 11/02/18 Nupur Bullock, PharmD 230 [place] [address] Pharmacist Internal Medicine 08/09/24 Sury Benitez [address] [facility] [address] [place] [address] Pulmonary Disease 09/27/24 Nirali Madrid OD 267 [place] [address] Optometry 10/27/24 Li Grande MD 575 [place] [address] Hematology and Oncology 10/27/24 Anselmo Gates MD 10 [facility] [address] [place] [address] Orthopaedic Surgery 10/27/24 Margaret Holman 11 [facility] 3rd [place] [address] Cardiology 10/27/24 Herberth Stokes MD 11 [facility] 3rd [place] [address] Gastroenterology 10/27/24 Hilton Palacios MD 15 [facility], [address] [place] [address] Neurology 02/06/25 Pily Delaney Manager ClubPublic Opinion Survey Taker 07/22/24 Elie Vicky [facility] Psychology 12/29/24 documented as of this encounter
--- OUTSIDE RECORDS SUMMARY | 2025-02-07 11:11 | XMS_ITS | Encounter Summary ---
Author Organization [employer] Address 75 [facility] 7t [place] [address] Care Team Providers Care Associate Faculty Name Role Phone Shereen Latham MD Primary Care Provider [phone] Nupur Bullock PharmD Unavailable Sury Benitez Unavailable [phone] Nirali Madrid OD Unavailable [phone] Li Grande MD Unavailable [phone] Anselmo Gates MD Unavailable Margaret Holman Unavailable Herberth Stokes MD Unavailable [phone] Hilton Palacios MD Unavailable [phone] Encounter Details Date Type Department Care Team (Late st Contact Info) Description 11/16/2022 Abstract [facility] MEDICINE 230 [place], [place] [phone] Shereen Latham MD 230 [place], [place] [phone] Social History Tobacco Use Types Packs/Day Years [...] 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 Per Dr. Krish Loomis's note from [facility] CLIENT SOLUTIONS SPECIALIST, pt was due for repeat colposcopy in [...] Hyperaldosteronism (CMS/HCC) (Resolved 07/29/2023) Seen by [facility] Endocrinology 04/03/2022. Initially seen 12/2021 for hyperaldosteronism. Labs [facility] 10/2021 aldosterone 8, plasma renin 0.11, aldosterone/renin 72.7. She was likely on spironolactone and lisinopril at time of labs. 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 -S/p RIGHT mastectomy with sentinel node bx by [facility] -Adriamycin/Cytoxan based chemotherapy started Oct, completed [...] had ultrasound sound for abdominal pain at [facility]. Ultrasound showed diffusely echogenic parenchyma with focal sparing around the gallbladder. No suspicious lesions. Impression showed liver likely representing hepatic steatosis and non- obstructing right kidney stone. documented in this encounter Plan of Treatment Upcoming Encounters Date Type Department Care Team (Late st Contact Info) Description 02/13/2025 2:00 PM EDT Clinical Support [facility] DIABETES/NUTRITION 230 [place] [address] Ernestina Esteban, RD 230 [place] [address] 02/17/2025 2:30 PM EDT Office Visit [facility] ADULT DENTAL 230 [place] [address] Paz-Connor, Isa, DDS 230 [place] [address] 03/29/2025 2:00 PM EDT Office Visit [facility] ADULT DENTAL 230 [place] [address] Heidi, Jenny 230 [place] [address] 04/25/2025 2:30 PM EDT Medication Management [facility] MEDICINE 230 [place] [address] Nupur Bullock, PharmD [address] [place] [address] documented as of this encounter Visit Diagnoses Not on filedocumented in this encounter Care Teams Associate Faculty Relationship Specialty Start Date End Date Shereen Latham MD [address] [place] [address] PCP - General Family Medicine 11/02/18 Nupur Bullock, PharmD [address] [place] [address] Pharmacist Internal Medicine 08/09/24 Sury Benitez [address] [place] [address] [place] [address] Pulmonary Disease 09/27/24 Nirali Madrid OD [address] [place] [address] Optometry 10/27/24 Li Grande MD [address] [place] [address] Hematology and Oncology 10/27/24 Anselmo Gates MD [address] [place] [address] Orthopaedic Surgery 10/27/24 Margaret Holman 11 [facility] [address] 3rd [place] [address] Cardiology 10/27/24 Herberth Stokes MD 11 [facility] [address] 3rd [place] [address] Gastroenterology 10/27/24 Hilton Palacios MD 15 [facility], [address] [place] [address] Neurology 02/06/25 Pily Delaney Morning Show HostHealth Promotion Specialist 07/22/24 Elie Vicky [facility] 12/29/24 documented as of this encounter
[2025-02-07 11:30] LABS: Magnesium 1.7 mg/dL (1.6-2.6)
== END 2025-02-07 09:46 | disposition home or self-care (01) ==
LOC: HO.HHCL 09:45
PROVIDERS: Visit Provider Family Medicine
DX: E83.42 Hypomagnesemia (principal)
CPT/HCPCS: 36415; 83735

== ENCOUNTER → 2025-02-09 09:21 | Outpatient (REF) | payer MEDICAID, SELFPAY ==
--- NOTE | 2025-02-09 09:24 | CA_ITS ---
Acquisition Time: 2025-02-09 09:25:08 Total Exercise Time: 00:05:02 Test Indications: CP Medications: SEE H&P Protocol: ROBBY Max HR: 153 BPM 90% of Pred: 169 BPM Max BP: 164/70 mmHG Max Work Load: 4.6 METS Exercise stress test with exercise 5 mins 2 secs of Robby Protocol, held at Stage 1 due to leg discomfort, achieving 90% MPHR, with reports of SOB and leg discomfort, without any arrythmias, with normotensive response to exercise. Without EKG changes meeting criteria for ischemia. In recovery, breathing returned to baseline and pt feeling back to baseline. Nuclear images pending. Test reviewed with Dr. Jeffries. PS- Pt had baseline HR in the high 110s, attributes it to her anxiety. Referred By: Margaret Holman Electronically Signed By: Isac Aldridge
--- OUTSIDE RECORDS SUMMARY | 2025-02-09 10:12 | XMS_ITS | Encounter Summary ---
Author Organization [employer] Address 75 [facility] 7t [place] [address] Care Team Providers Care Environmental Health Manager Name Role Phone Shereen Latham MD Primary Care Provider [phone] Nupur Bullock PharmD Unavailable Sury Benitez Unavailable [phone] Nirali Madrid OD Unavailable Li Grande MD Unavailable [phone] Anselmo Gates MD Unavailable Margaret Holman Unavailable Herberth Stokes MD Unavailable [phone] Hilton Palacios MD Unavailable Reason for Visit * Reason Comments Med Refill Encounter Details Date Type Department Care Team (Late st Contact Info) Description 01/17/[address] [facility] CHC MED & PEDS [address] [place], [place] [phone] Shereen Latham MD 230 [place] [address] Pain Social History Tobacco Use Types Packs/Day [...] PM EDT Clinical Support [facility] DIABETES/NUTRITION 230 [place] [address] [place] [address] 02/17/2025 2:30 PM EDT Office Visit [facility] ADULT DENTAL 230 [place] [address] Paz-Isa Connor, DDS 230 [place] [address] 03/29/2025 2:00 PM EDT Office Visit [facility] ADULT DENTAL 230 [place] [address] Heidi, Jenny 230 [place] [address] 04/25/2025 2:30 PM EDT Medication Management [facility] MEDICINE 230 [place] [address] Nupur Bullock PharmD [address] [place] [address] documented as of this encounter Visit Diagnoses Diagnosis Pain Generalized pain documented in this encounter Additional Health Concerns Assessment Noted Time PHQ-9 Depression Total Score: 22 025 10:17 AM EST documented as of this encounter Care Teams Environmental Health Manager Relationship Specialty Start Date End Date Shereen Latham MD [address] [place] [address] PCP - General Family Medicine 11/02/18 Nupur Bullock, PharmD [address] [place] [address] Pharmacist Internal Medicine 08/09/24 Sury Benitez [address] [place] [address] [place] [address] Pulmonary Disease 09/27/24 Nirali Madrid OD [address] [place] [address] Optometry 10/27/24 Li Grande MD [address] [place] [address] Hematology and Oncology 10/27/24 Anselmo Gates MD [address] [place] [address] Orthopaedic Surgery 10/27/24 Margaret Holman [address] [facility] [address] 3rd [place] [address] Cardiology 10/27/24 Herberth Stokes MD [address] [facility] [address] 3rd [place] [address] Gastroenterology 10/27/24 Hilton Palacios MD 15 [facility], [address] [place] [address] Neurology 02/06/25 Pily Delaney Tire RetreaderSenior Manager Quality Assurance 07/22/24 Elie Vicky [facility] 12/29/24 documented as of this encounter
--- OUTSIDE RECORDS SUMMARY | 2025-02-09 10:12 | XMS_ITS | Encounter Summary ---
Author Organization [employer] Address [address] [facility] 7t [place] [address] Care Team Providers Care Bead Cutter Name Role Phone Shereen Latham MD Primary Care Provider [phone] Nupur Bullock PharmD Unavailable Sury Benitez Unavailable [phone] Nirali Madrid OD Unavailable Li Grande MD Unavailable [phone] Anselmo Gates MD Unavailable Margaret Holman Unavailable Herberth Stokes MD Unavailable [phone] Hilton Palacios MD Unavailable [phone] Encounter Details Date Type Department Care Team (Late st Contact Info) Description 10/22/2023 Orders Only [facility] MEDICINE 230 [place] [address] Shereen Latham MD 230 [place], [place] [phone] Vitamin D deficiency Social History Tobacco Use [...] 2:00 PM EDT Clinical Support [facility] DIABETES/NUTRITION 230 [place] [address] Ernestina Esteban, KATE [address] [place] [address] 02/17/2025 2:30 PM EDT Office Visit [facility] ADULT DENTAL [address] [place] [address] Isa De La Rosa DDS [address] [place] [address] 03/29/2025 2:00 PM EDT Office Visit [facility] ADULT DENTAL [address] [place] [address] Jenny Gordon [address] [place] [address] 04/25/2025 2:30 PM EDT Medication Management [facility] MEDICINE [address] [place] [address] Nupur Bullock, Pushpa 230 [place] [address] documented as of this encounter Visit Diagnoses Diagnosis Vitamin D deficiency documented in this encounter Additional Health Concerns Assessment Noted Time PHQ-9 Depression Total Score: 21 023 10:42 AM EST documented as of this encounter Care Teams Bead Cutter Relationship Specialty Start Date End Date Shereen Latham MD 230 [place] [address] PCP - General Family Medicine 11/02/18 Nupur Bullock, Pushpa 230 [place] [address] Pharmacist Internal Medicine 08/09/24 Sury Benitez [address] [place] [address] Dr [facility] 103 [place] [address] Pulmonary Disease 09/27/24 Nirali Madrid OD 267 [place] [address] Optometry 10/27/24 Li Grande MD 575 [place] [address] Hematology and Oncology 10/27/24 Anselmo Gates MD [address] [place] [address] Orthopaedic Surgery 10/27/24 Margaret Holman [address] 3rd [place] [address] Cardiology 10/27/24 Herberth Stokes MD [address] 3rd [place] [address] Gastroenterology 10/27/24 Hilton Palacios MD [address] [place] [address], [address] [place] [address] Neurology 02/06/25 Pily Delaney Mortgage AnalystOperations Associate 07/22/24 Elie BRASHER [facility] 12/29/24 documented as of this encounter
--- OUTSIDE RECORDS SUMMARY | 2025-02-09 10:12 | XMS_ITS | Encounter Summary ---
Author Organization [employer] Address [address] [facility] 7t [place] [address] Care Team Providers Care Launch Commander Harbor Police Name Role Phone Shereen Latham MD Primary Care Provider [phone] Nupur Bullock PharmD Unavailable Sury Benitez Unavailable [phone] Nirali Madrid OD Unavailable Li Grande MD Unavailable [phone] Anselmo Gates MD Unavailable Margaret Holman Unavailable Herberth Stokes MD Unavailable [phone] Hilton Palacios MD Unavailable Encounter Details Date Type Department Care Team (Late st Contact Info) Description 04/26/2024 Orders Only [facility] MEDICINE [address] [place] [address] Junie Damon MD 230 [place], [place] 1600140 Social History Tobacco Use Types Packs/Day Years [...] Description 02/13/2025 2:00 PM EDT Clinical Support [facility] DIABETES/NUTRITION [address] [place] [address] [place] [address] 02/17/2025 2:30 PM EDT Office Visit [facility] ADULT DENTAL [address] [place] [address] Paz-Connor, Isa, DDS [address] [place] [address] 03/29/2025 2:00 PM EDT Office Visit [facility] ADULT DENTAL [address] [place] [address] Heidi, Jenny [address] [place] [address] 04/25/2025 2:30 PM EDT Medication Management [facility] MEDICINE [address] [place] [address] Nupur Bullock PharmD 230 [place] [address] documented as of this encounter Visit Diagnoses Not on filedocumented in this encounter Additional Health Concerns Assessment Noted Time PHQ-9 Depression Total Score: 23 024 1:45 PM EDT documented as of this encounter Care Teams Launch Commander Harbor Police Relationship Specialty Start Date End Date Shereen Latham MD [address] [place] [address] PCP - General Family Medicine 11/02/18 Nupur Bullock, PharmD [address] [place] [address] Pharmacist Internal Medicine 08/09/24 Sury Benitez [address] [place] [address] [place] [address] [place] [address] Pulmonary Disease 09/27/24 Nirali Madrid OD [address] [place] [address] Optometry 10/27/24 Li Grande MD [address] [place] [address] Hematology and Oncology 10/27/24 Anselmo Gates MD [address] [place] [address] Orthopaedic Surgery 10/27/24 Margaret Holman [address] 3rd [place] [address] Cardiology 10/27/24 Herberth Stokes MD [address] 3rd [place] [address] Gastroenterology 10/27/24 Hilton Palacios MD [address] [facility] [address] [place] [address] Neurology 02/06/25 Pily Delaney Studio Data AnalystHogshead Roller 07/22/24 Elie BRASHER [facility] Psychology 12/29/24 documented as of this encounter
--- OUTSIDE RECORDS SUMMARY | 2025-02-09 10:12 | XMS_ITS | Encounter Summary ---
Author Organization [employer] Address [address] [facility] 7t [place] [address] Care Team Providers Care Research Quality Assurance Analyst Name Role Phone Shereen Latham MD Primary Care Provider [phone] Nupur Bullock PharmD Unavailable Sury Benitez Unavailable [phone] Nirali Madrid OD Unavailable Li Grande MD Unavailable [phone] Anselmo Gates MD Unavailable Margaret Holman Unavailable Herberth Stokes MD Unavailable [phone] Hilton Palacios MD Unavailable [phone] Encounter Details Date Type Department Care Team (Late st Contact Info) Description 05/02/2024 Orders Only [facility] MEDICINE 230 [place], [place] [phone] Shereen Latham MD 230 [place], [place] [phone] Gout, unspecified cause, unspecified chronicity, unspecified site [...] [facility] DI[facility]NUTRITION 230 [place] [address] 230 [place] [address] 02/17/2025 2:30 PM EDT Office Visit [facility] ADULT DENTAL 230 [place] [address] Paz-Connor Isa, DDS 230 [place] [address] 03/29/2025 2:00 PM EDT Office Visit [facility] ADULT DENTAL 230 [place] [address] Heidi, Jenny 230 [place] [address] 04/25/2025 2:30 PM EDT Medication Management [facility] MEDICINE 230 [place] [address] Nupur Bullock PharmD [address] [place] [address] documented as of this encounter Visit Diagnoses Diagnosis Gout, unspecified cause, unspecified chronicity, unspecified site- Primary documented in this encounter Additional Health Concerns Assessment Noted Time PHQ-9 Depression Total Score: 23 024 1:45 PM EDT documented as of this encounter Care Teams Research Quality Assurance Analyst Relationship Specialty Start Date End Date Shereen Latham MD [address] [place] [address] PCP - General Family Medicine 11/02/18 Nupur Bullock, PharmD [address] [place] [address] Pharmacist Internal Medicine 08/09/24 Sury Benitez [address] [place] [address] [place] [address] Pulmonary Disease 09/27/24 Nirali Madrid OD [address] [place] [address] Optometry 10/27/24 Li Grande MD [address] [place] [address] Hematology and Oncology 10/27/24 Anselmo Gates MD [address] [place] [address] Orthopaedic Surgery 10/27/24 Margaret Holman [address] 3rd [place] [address] Cardiology 10/27/24 Herberth Stokes MD [address] 3[address] [place] [address] Gastroenterology 10/27/24 Hilton Palacios MD 15 [facility], [address] [place] [address] Neurology 02/06/25 Pily Delaney Candle WickerReceivables Specialist 07/22/24 Elie Vicky [facility] 12/29/24 documented as of this encounter
--- OUTSIDE RECORDS SUMMARY | 2025-02-09 10:12 | XMS_ITS | Encounter Summary ---
Author Organization [employer] Address [address] [facility] 7t [place] [address] Care Team Providers Care Resident Programs Assistant Name Role Phone Shereen Latham MD Primary Care Provider [phone] Nupur Bullock PharmD Unavailable Sury Benitez Unavailable [phone] Nirali Madrid OD Unavailable [phone] Li Grande MD Unavailable [phone] Anselmo Gates MD Unavailable Margaret Holman Unavailable Herberth Stokes MD Unavailable [phone] Hilton Palacios MD Unavailable Reason for Visit * Reason Onset Date Comments Nurse Triage 05/25/2024 Encounter Details Date Type Department Care Team (Late st Contact Info) Description 05/25/2024 Telephone [facility] MEDICINE 230 [place], [place] [phone] Shereen Latham MD 230 [place], [place] [phone] Nurse Triage Social History Tobacco Use Types [...] . Pt reports Pt was seen in [facility] 05/11/24 for continued leftfoot pain and Pt was seen by railroad wheels and axles inspector, Leta Lunsford MD 05/11/24 also (report is on the chart). Pt had been advised to stop BP med chlorthalidone per railroad wheels and axles inspector [facility] because that particular medication is known to [...] anxiety. Pt is advised to come to [facility] today , open till 8pm, to be [...] Description 02/13/2025 2:00 PM EDT Clinical Support [facility] DIABETES/NUTRITION 230 [place] [address] Sarkisjohnymallory, Ernestina, RD 230 [place] [address] 02/17/2025 2:30 PM EDT Office Visit [facility] ADULT DENTAL 230 [place] [address] Paz-Connor, Isa, DDS 230 [place] [address] 03/29/2025 2:00 PM EDT Office Visit [facility] ADULT DENTAL 230 [place] [address] Heidi, Jenny [address] [place] [address] 04/25/2025 2:30 PM EDT Medication Management [facility] MEDICINE 230 [place] [address] Nupur Bullock, Pushpa 230 [place] [address] documented as of this encounter Visit Diagnoses Not on filedocumented in this encounter Additional Health Concerns Assessment Noted Time PHQ-9 Depression Total Score: 22 024 9:12 AM EDT documented as of this encounter Care Teams Resident Programs Assistant Relationship Specialty Start Date End Date Shereen Latham MD [address] [place] [address] PCP - General Family Medicine 11/02/18 Nupur Bullock, PharmD [address] [place] [address] Pharmacist Internal Medicine 08/09/24 Sury Benitez [address] [place] [address] [place] [address] [place] [address] Pulmonary Disease 09/27/24 Nirali Madrid OD [address] [place] [address] Optometry 10/27/24 Li Grande MD 575 [place] [address] Hematology and Oncology 10/27/24 Anselmo Gates MD 10 [facility] [address] [place] [address] Orthopaedic Surgery 10/27/24 Margaret Holman 11 [facility] 3rd [place] [address] Cardiology 10/27/24 Herberth Stokes MD 11 [facility] 3rd [place] [address] Gastroenterology 10/27/24 Hilton Palacios MD 15 [facility], [address] [place] [address] Neurology 02/06/25 Pily Delaney Certified Prosthetist/OrthotistVice President Client Services 07/22/24 Elie Vicky [facility] 12/29/24 documented as of this encounter
--- OUTSIDE RECORDS SUMMARY | 2025-02-09 10:12 | XMS_ITS | Encounter Summary ---
Author Organization [employer] Address [address] [facility] 7t [place] [address] Care Team Providers Care Adoption Specialist Name Role Phone Shereen Latham MD Primary Care Provider [phone] Nupur Bullock PharmD Unavailable Sury Benitez Unavailable [phone] Nirali Madrid OD Unavailable Li Grande MD Unavailable [phone] Anselmo Gates MD Unavailable Margaret Holman Unavailable Herberth Stokes MD Unavailable [phone] Hilton Palacios MD Unavailable Reason for Referral * Imaging (Routine) - Pending Review Specialty Diagnoses / Procedures Referred By Walter nelson Referred To Contact Radiology Diagnoses Breast pain, left Procedures BI Mammogram Diagnostic Tomosynthesis Left Stacey Khan MD 230 [place] [address] Phone: tel: fax: [facility] [address] [place], [place] Phone: tel: fax: Referral ID Status Reason Start Date Expiration Date V isits Requested Visits Authorized [id number] Pending Review 01/19/2025 01/19/2026 1 1 * Imaging (Routine) - Pending Review Specialty Diagnoses / Procedures Referred By Walter nelson Referred To Contact Radiology Diagnoses Breast pain, left Procedures BI US Breast Limited Left Stacey Khan MD 230 [place] [address] Phone: tel: fax: [address] Phone: tel: fax: Referral ID Status Reason Start Date Expiration Date V isits Requested Visits Authorized [id number] Pending Review 01/19/2025 01/19/2026 1 1 Encounter Details Date Type Department Care Team (Late st Contact Info) Description 01/19/2025 Orders Only [facility] MEDICINE 230 [place] [address] Stacey Khan MD 230 [place], [place] [phone] Breast pain, left (Primary Dx) Social History [...] 2:00 PM EDT Clinical Support [facility] DIABETES/NUTRITION 230 [place] [address] Ernestina Esteban, KATE 230 [place] [address] 02/17/2025 2:30 PM EDT Office Visit [facility] ADULT DENTAL 230 [place] [address] Isa De La Rosa DDS 230 [place] [address] 03/29/2025 2:00 PM EDT Office Visit [facility] ADULT DENTAL 230 [place] [address] Jenny Gordon 230 [place] [address] 04/25/2025 2:30 PM EDT Medication Management [facility] MEDICINE 230 [place] [address] Nupur Bullock PharmD 230 [place] [address] Scheduled Orders Name Type Priority Associated Diagnoses [...] documented as of this encounter Care Teams Adoption Specialist Relationship Specialty Start Date End Date Shereen Latham MD 230 [place] [address] PCP - General Family Medicine 11/02/18 Nupur Bullock, Pushpa 230 [place] [address] Pharmacist Internal Medicine 08/09/24 Sury Benitez [address] [place] [address] [address] [place] [address] Pulmonary Disease 09/27/24 Nirali Madrid, SUSAN [address] [place] [address] Optometry 10/27/24 Li Grande MD [address] [place] [address] Hematology and Oncology 10/27/24 Anselmo Gates MD [address] [place] [address] Drive [address] [place] [address] Orthopaedic Surgery 10/27/24 Margaret Holman [address] 3rd [place] [address] Cardiology 10/27/24 Herberth Stokes MD [address] 3rd [place] [address] Gastroenterology 10/27/24 Hilton Palacios MD [address] [place] [address], [address] [place] [address] Neurology 02/06/25 Pily Delaney Scaling Machine OperatorRoll Handler 07/22/24 Elie Vicky [facility] Psychology 12/29/24 documented as of this encounter
--- OUTSIDE RECORDS SUMMARY | 2025-02-09 10:12 | XMS_ITS | Encounter Summary ---
Author Organization [employer] Address 75 [facility] 7t [place] [address] Care Team Providers Care Peripatologist Name Role Phone Shereen Latham MD Primary Care Provider Nupur Bullock PharmD Unavailable Sury Benitez Unavailable [phone] Nirali Madrid OD Unavailable [phone] Li Grande MD Unavailable [phone] Anselmo Gates MD Unavailable Margaret Holman Unavailable Herberth Stokes MD Unavailable [phone] Hilton Palacios MD Unavailable Reason for Referral * Consultation (Routine) - Closed Specialty Diagnoses / Procedures Referred By Walter nelson Referred To Contact Obstetrics and Gynecology Diagnoses Women's annual routine gynecological examination Stacey Khan MD 230 [place] [address] Phone: tel: fax: [facility]? s [facility] [address] 5th Floor [address] (Main Hospital Entrance) [place], [place] Phone: tel: fax: Referral ID Status Reason Start Date Expiration Date V isits Requested Visits Authorized [id number] Closed Specialty Services Required 01/19/2025 01/19/2026 9 9 Encounter Details Date Type Department Care Team (Late st Contact Info) Description 01/19/2025 Orders Only [facility] MEDICINE 230 [place] [address] Stacey Khan MD 230 [place], [place] [phone] Women's annual routine gynecological examination (Primary Dx) [...] Clinical Support [facility] DIABETES/NUTRITION 230 [place] [address] Ernestina Esteban, RD 230 [place] [address] 02/17/2025 2:30 PM EDT Office Visit [facility] ADULT DENTAL 230 [place] [address] Paz-Connor, Isa, DDS 230 [place] [address] 03/29/2025 2:00 PM EDT Office Visit [facility] ADULT DENTAL 230 [place] [address] Heidi, Jenny 230 [place] [address] 04/25/2025 2:30 PM EDT Medication Management [facility] MEDICINE [address] [place] [address] Nupur Bullock, PharmD 230 [place] [address] Scheduled Referrals Name Type Priority Associated Diagnoses [...] Sensitivity Troponin I (01/19/2025 4:33 PM EDT) [facility] TROPONIN I HIGH SENSITIVITY 7.8 <3.5 - 17.0 ng/L [facility] Comment:The Henriquez high sens itivity Troponin-I results should beused in conjunction with other diagnostic information suchas ECG, clinical observations and information, and patientsymptoms to aid in the diagnosis of PA. 01/19/2025 4:33 PM EDT 01/19/2025 4:34 PM EDT us Generic External Data Provider LAB BLOOD ORDERAB LES Final Result Performing Organization Address [facility]/ZIP Co de Phone Number [facility] [address] [place] [phone] * B Type Natriuretic Peptide (BNP) (01/19/2025 4:33 PM EDT) [facility] B Type Natriuretic Peptide 22 <100 pg/mL [facility] 01/19/2025 4:33 PM EDT 01/19/2025 4:34 PM EDT Generic External Data Provider LAB BLOOD ORDERAB LES Final Result Performing Organization Address City/[facility]/ZIP Co de Phone Number [facility] [address] [place] [phone] * D Dimer High Sensitivity (01/19/2025 4:33 PM EDT) [facility] D Dimer High Sensitivity <150 NG/ML [facility] Comment:D-DIMER HS REFERENCE RANGENote: Our [...] Provider LAB BLOOD ORDERAB LES Final Result [facility] [address] [place] [phone] [phone] documented in this encounter Visit Diagnoses Diagnosis Women's annual routine gynecological examination- Primary documented in this encounter Additional Health Concerns Assessment Noted Time PHQ-9 Depression Total Score: 22 025 10:17 AM EST documented as of this encounter Care Teams Peripatologist Relationship Specialty Start Date End Date Shereen Latham MD 230 [place] [address] PCP - General Family Medicine 11/02/18 Nupur Bullock, CharleneD [address] [place] [address] Pharmacist Internal Medicine 08/09/24 Sury Benitez [address] [place] [address] Dr [address] [place] [address] Pulmonary Disease 09/27/24 Nirali Madrid, OD [address] [place] [address] Optometry 10/27/24 Li Grande MD 575 [place] [address] Hematology and Oncology 10/27/24 Anselmo Gates MD [address] [place] [address] Orthopaedic Surgery 10/27/24 Margaret Holman [address] [facility] [address] 3rd [place] [address] Cardiology 10/27/24 Herberth Stokes MD [address] [facility] [address] [facility] [address] 3rd [place] [address] Gastroenterology 10/27/24 Hilton Palacios MD [address] [place] [address] DR, [address] [place] [address] Neurology 02/06/25 Pily Delaney Cold Rolling SupervisorClinical Laboratory Aide 07/22/24 Elie BRASHER [facility] Psychology 12/29/24 documented as of this encounter
--- OUTSIDE RECORDS SUMMARY | 2025-02-09 10:12 | XMS_ITS | Encounter Summary ---
Author Organization [employer] Address 75 [facility] 7t [place] [address] Care Team Providers Care Packaging Technician Name Role Phone Shereen Latham MD Primary Care Provider [phone] Nupur Bullock PharmD Unavailable [phone] Sury Benitez Unavailable [phone] Nirali Madrid OD Unavailable [phone] Li Grande MD Unavailable [phone] Anselmo Gates MD Unavailable Margaret Holman Unavailable Herberth Stokes MD Unavailable [phone] Hilton Palacios MD Unavailable [phone] Reason for Visit * Reason Onset Date Comments Medication Question 07/05/2024 Encounter Details Date Type Department Care Team (Late st Contact Info) Description 07/05/2024 Telephone [facility] MEDICINE 230 [place], [place] [phone] Shereen Latham MD 230 [place], [place] [phone] Medication Question Social History Tobacco Use Types [...] is no medication interaction. Contact pt at [phone] documented in this encounter Plan of Treatment Upcoming Encounters Date Type Department Care Team (Late st Contact Info) Description 02/13/2025 2:00 PM EDT Clinical Support [facility] DIABETES/NUTRITION 230 [place] [address] Ernestina Esteban, RD 230 [place] [address] 02/17/2025 2:30 PM EDT Office Visit [facility] ADULT DENTAL 230 [place] [address] Paz-Connor, Isa, DDS 230 [place] [address] 03/29/2025 2:00 PM EDT Office Visit [facility] ADULT DENTAL 230 [place] [address] Jenny Gordon 230 [place] [address] 04/25/2025 2:30 PM EDT Medication Management [facility] MEDICINE 230 [place] [address] Nupur Bullock, CharleneD 230 [place] [address] documented as of this encounter Visit Diagnoses Diagnosis Pain Generalized pain documented in this encounter Additional Health Concerns Assessment Noted Time PHQ-9 Depression Total Score: 13 024 4:53 PM EDT documented as of this encounter Care Teams Packaging Technician Relationship Specialty Start Date End Date Shereen Latham MD 230 [place] [address] PCP - General Family Medicine 11/02/18 Nupur Bullock, CharleneD 230 [place] [address] Pharmacist Internal Medicine 08/09/24 Sury Benitez [address] [place] [address] [address] [place] [address] Pulmonary Disease 09/27/24 Nirali Madrid OD [address] [place] [address] Optometry 10/27/24 Li Grande MD [address] [place] [address] Hematology and Oncology 10/27/24 Anselmo Gates MD 10 [facility] [address] [place] [address] Orthopaedic Surgery 10/27/24 Margaret Holman 11 [facility] 3rd [place] [address] Cardiology 10/27/24 Herberth Stokes MD 11 [facility] 3rd [place] [address] Gastroenterology 10/27/24 Hilton Palacios MD [address] [place] [address], [address] [place] [address] Neurology 02/06/25 Pily Delaney Wind Turbine Controls EngineerReal Estate Representative 07/22/24 Elie BRASHER [facility] Psychology 12/29/24 documented as of this encounter
--- OUTSIDE RECORDS SUMMARY | 2025-02-09 10:13 | XMS_ITS | Clinical Summary ---
Author Organization [facility] it Address [address] [place] [address] Care Team Providers Care Loin Trimmer Name Role Phone Shereen Latham MD Primary Care Provider [phone] Social History Tobacco Use Types Packs/Day Years [...] Vaccines (1 of 2) 2023 COVID-19 Vaccine ( season) 2024 02/09/2021 Hepatitis C Screening 08/11/2024 Social Influencers of Health Screening 08/11/2024 Depression Screening 06/07/2025 06/07/2024 Influenza Vaccine (Season Ended) 2025 09/06/2015 Hypertension/CHF/CAD Annual BMP Blood Test 09/07/2025 09/07/2024, [...] age to complete this topic Care Teams Loin Trimmer Relationship Specialty Start Date End Date Shereen Latham MD [address] [place] [phone] PCP - General 01/13/1996
--- OUTSIDE RECORDS SUMMARY | 2025-02-09 10:13 | XMS_ITS | Encounter Summary ---
Author Organization [employer] Address [address] [facility] 7t [place] [address] Care Team Providers Care Wire Photo Operator Name Role Phone Shereen Latham MD Primary Care Provider [phone] Nupur Bullock PharmD Unavailable Sury Benitez Unavailable [phone] JuliusNirali castellanos OD Unavailable Li Grande MD Unavailable [phone] Anselmo Gates MD Unavailable Margaret Holman Unavailable Herberth Stokes MD Unavailable [phone] Hilton Palacios MD Unavailable [phone] Encounter Details Date Type Department Care Team (Latest Contact Info) Description 07/06/2019 Abstract [facility] CONVERSIONS Dental, Provider, DDS Social History [...] Description 02/13/2025 2:00 PM EDT Clinical Support [facility] DIABETES/NUTRITION [address] [place] [address] Ernestina Esteban, RD 230 [place] [address] 02/17/2025 2:30 PM EDT Office Visit [facility]ULT [facility]ENT[facility] [address] [place] [address] Paz-Connor, Isa, DDS 230 [place] [address] 03/29/2025 2:00 PM EDT Office Visit [facility] [address] [place] [address] Heidi, Jenny 230 [place] [address] 04/25/2025 2:30 PM EDT Medication Management [facility] MEDIC[facility] [address] [place] [address] Nupur Bullock, PharmD [address] [place] [address] documented as of this encounter Visit Diagnoses Not on filedocumented in this encounter Care Teams Wire Photo Operator Relationship Specialty Start Date End Date Shereen Latham MD [address] [place] [address] PCP - General Family Medicine 11/02/18 Nupur Bullock, PharmD [address] [place] [address] Pharmacist Internal Medicine 08/09/24 Sury Benitez [address] [place] [address] [place] [address] Pulmonary Disease 09/27/24 Nirali Madrid OD [address] [place] [address] Optometry 10/27/24 Li Grande MD [address] [place] [address] Hematology and Oncology 10/27/24 Anselmo Gates MD [address] [place] [address] Orthopaedic Surgery 10/27/24 Margaret Holman [address] [facility] 3rd [place] [address] Cardiology 10/27/24 Herberth Stokes MD [address] [facility] 3rd [place] [address] Gastroenterology 10/27/24 Hilton Palacios MD [address] [facility], [address] [place] [address] Neurology 02/06/25 Pily Delaney Observation NurseWashtub Worker Helper 07/22/24 Elie Vicky [facility] 12/29/24 documented as of this encounter
--- OUTSIDE RECORDS SUMMARY | 2025-02-09 10:13 | XMS_ITS | Encounter Summary ---
Author Organization [employer] Address [address] [facility] 7t [place] [address] Care Team Providers Care Assembler Truck Trailer Name Role Phone Shereen Latham MD Primary Care Provider [phone] Nupur Bullock PharmD Unavailable [phone] Sury Benitez Unavailable [phone] Nirali Madrid OD Unavailable [phone] Li Grande MD Unavailable [phone] Anselmo Gates MD Unavailable Margaret Holman Unavailable Herberth Stokes MD Unavailable [phone] Hilton Palacios MD Unavailable Reason for Visit * Reason Onset Date Comments Nurse Triage 01/25/2024 Referral 01/25/2024 Encounter Details Date Type Department Care Team (Late st Contact Info) Description 01/25/2024 Telephone [facility] [address] [place], [place] [phone] Shereen Latham MD 230 [place], [place] [phone] Nurse Triage; Referral Social History Tobacco Use [...] vary. Pt wants to be referred to [facility] [address] [facility] [address] [place] [address]. [facility] will send to team to review [...] Description 02/13/2025 2:00 PM EDT Clinical Support [facility] DIABETES/NUTRITION [address] [place] [address] Ernestina Esteban, RD 230 [place] [address] 02/17/2025 2:30 PM EDT Office Visit [facility] ADULT DENTAL 230 [place] [address] Paz-Connor, Isa, DDS [address] [place] [address] 03/29/2025 2:00 PM EDT Office Visit [facility] 230 [place] [address] Heidi, Jenny [address] [place] [address] 04/25/2025 2:30 PM EDT Medication Management [facility] [address] [place] [address] Nupur Bullock, PharmD 230 [place] [address] documented as of this encounter Visit Diagnoses Not on filedocumented in this encounter Additional Health Concerns Assessment Noted Time PHQ-9 Depression Total Score: 21 023 10:42 AM EST documented as of this encounter Care Teams Assembler Truck Trailer Relationship Specialty Start Date End Date Shereen Latham MD 230 [place] [address] PCP - General Family Medicine 11/02/18 Nupur Bullock, PharmD [address] [place] [address] Pharmacist Internal Medicine 08/09/24 Sury Benitez [address] [place] [address] Dr [facility] [address] [place] [address] Pulmonary Disease 09/27/24 Nirali Madrid OD [address] [place] [address] Optometry 10/27/24 Li Grande MD [address] [place] [address] Hematology and Oncology 10/27/24 Anselmo Gates MD [address] [place] [address] Orthopaedic Surgery 10/27/24 Margaret Holman [address] 3rd [place] [address] Cardiology 10/27/24 Herberth tSokes MD [address] [facility] 3rd [place] [address] Gastroenterology 10/27/24 Hilton Palacios MD [address] [place] [address], [address] [place] [address] Neurology 02/06/25 Pily Delaney Aircraft Layout WorkerTandem Mill Roller 07/22/24 Elie BRASHER [facility] Psychology 12/29/24 documented as of this encounter
--- OUTSIDE RECORDS SUMMARY | 2025-02-09 10:13 | XMS_ITS | Encounter Summary ---
Author Organization [employer] Address [address] [facility] 7t [place] [address] Care Team Providers Care Deputy Jailer Name Role Phone Shereen Latham MD Primary Care Provider [phone] Nupur Bullock PharmD Unavailable Sury Benitez Unavailable [phone] Nirali Madrid OD Unavailable Li Grande MD Unavailable [phone] Anselmo Gates MD Unavailable Margaret Holman Unavailable Herberth Stokes MD Unavailable [phone] Hilton Palacios MD Unavailable [phone] Reason for Visit * Reason Comments Med Refill Encounter Details Date Type Department Care Team (Late st Contact Info) Description 06/21/2024 Refill [facility] [address] [place], [place] [phone] Shereen Latham MD 230 [place] [address] Mild intermittent asthma, unspecified whether complicated; Pain [...] 2:00 PM EDT Clinical Support [facility] DIABETES/NUTRITION [address] [place] [address] Ernestina Esteban, RD 230 [place] [address] 02/17/2025 2:30 PM EDT Office Visit [facility] ADULT DENTAL [address] [place] [address] Paz-Connor, Isa, DDS 230 [place] [address] 03/29/2025 2:00 PM EDT Office Visit [facility] ADULT DENTAL [address] [place] [address] Heidi, Jenny 230 [place] [address] 04/25/2025 2:30 PM EDT Medication Management [facility] MEDICINE [address] [place] [address] Nupur Bullock, PharmD [address] [place] [address] documented as of this encounter Visit Diagnoses Diagnosis Mild intermittent asthma, unspecified whether complicated Pain Generalized pain documented in this encounter Additional Health Concerns Assessment Noted Time PHQ-9 Depression Total Score: 13 024 4:53 PM EDT documented as of this encounter Care Teams Deputy Jailer Relationship Specialty Start Date End Date Shereen Latham MD [address] [place] [place] [address] PCP - General Family Medicine 11/02/18 uNpur Bullock, PharmD [address] [place] [place] [address] Pharmacist Internal Medicine 08/09/24 Sury Benitez [address] [place] [address] [place] [address] Pulmonary Disease 09/27/24 JuliusNirali castellanos OD [address] [place] [address] Optometry 10/27/24 Li Grande MD [address] [place] [address] Hematology and Oncology 10/27/24 Anselmo Gates MD [address] [place] [address] Orthopaedic Surgery 10/27/24 Margaret Holman [address] 3rd [place] [address] Cardiology 10/27/24 Herberth Stokes MD [address] [facility] 3rd [place] [address] Gastroenterology 10/27/24 Hilton Palacios MD [address] [facility] [address] [place] [address] Neurology 02/06/25 Pily Delaney Wall Taper HelperWindow And Door Installer 07/22/24 Elie Vicky [facility] 12/29/24 documented as of this encounter
--- OUTSIDE RECORDS SUMMARY | 2025-02-09 10:13 | XMS_ITS | Clinical Summary ---
Author Organization [employer] Address [address] [place] [address] Care Team Providers Care Boiler Erector Name Role Phone Shereen Latham MD Primary Care Provider [phone] Nupur Bullock PharmD Unavailable [phone] Sury Benitez Unavailable [phone] Nirali Madrid OD Unavailable Li Grande MD Unavailable [phone] Anselmo Gates MD Unavailable Margaret Holman Unavailable Herberth Stokes MD Unavailable [phone] Hilton Palacios MD Unavailable [phone] Allergies Active Allergy Reactions Criticality Noted Date [...] FOR FEVER 60 tablet 01/18/20 25 Active losartan (Cozaar) 25 MG tabletIndicatio [...] 04/21/24 with uric acid 7.9 -Seen by archives technician Dr. Bernstein 05/11/24 or evaluation of acute gout affecting left foot. -Pt admitted 07/25/24-07/2524 for swelling, pain, and warmth in the right knee. Patient had a low fever (100.3 F) and elevated WBC (39701 cells/uL), CRP, and ESR. Orthopedic surgery consulted [...] reach serum uric acid level <6 mg/dL(2020 [place] [employer] guideline for the management [...] 04/21/24 with uric acid 7.9 -Seen by archives technician Dr. Bernstein 05/11/24 or evaluation of acute gout affecting left foot. -Pt admitted 07/25/24-07/2524 for swelling, pain, and warmth in the right knee. Patient had a low fever (100.3 F) and elevated WBC (45030 cells/uL), CRP, and ESR. Orthopedic surgery consulted [...] reach serum uric acid level <6 mg/dL(2020 [place] [employer] guideline for the management [...] reach serum uric acid level <6 mg/dL(2020 [place] [employer] guideline for the management [...] ON 08/24/2024 9:45 AM BY JOLIE PA [facility] (07/25/2024 - 07/27/2024) Patient presented with swelling, pain, and warmth in the right knee. Patient had a low fever (100.3 F) and elevated WBC (43477 cells/uL), CRP, and ESR. Orthopedic surgery consulted [...] by mouth once daily for 5 days. [facility] ED (08/07/2024) Patient presented for right knee [...] of breath) 06/29/2024 Overview (12/29/2024): -Followed by [facility] Pulmonology with Sury Benitez NP -02/2024 [...] Plan (12/29/2024 11:03 AM EST): -Followed by [facility] Pulmonology with Sury Benitez NP -02/2024 [...] if needed. -pt reports she saw her hand candy molder and is continuing management with them. . Assessment & Plan (07/13/2024 2:15 PM EDT): -referred to pulmonology 06/29/24 -Pt reports she has appt to see hand candy molder 08/01/24 Assessment & Plan (06/29/2024 4:49 PM [...] failure with reduced EF during admission to [facility] 06/22/24. - She was started on [...] effusion and indeterminate diastolic function -Seen by [facility] Cardiology 08/01/24 : exercise nuclear stress [...] with reduced EF during recent admission to [facility] 06/22/24. Pt was volume overloaded therefore [...] with reduced EF during recent admission to [facility] 06/22/24. Pt was volume overloaded therefore [...] failure with reduced EF during admission to [facility] 06/22/24. - She was started on [...] effusion and indeterminate diastolic function -Seen by [facility] Cardiology 08/01/24 : exercise nuclear stress [...] failure with reduced EF during admission to [facility] 06/22/24. - She was started on [...] effusion and indeterminate diastolic function -Seen by [facility] Cardiology 08/01/24 : exercise nuclear stress [...] Complex care coordination 01/11/2024 Overview (01/11/2024): -Has RADIOLOGIST DIAGNOSTIC services with Chavo Martin is applying [facility] 01/11/2024 -In our complex care management program -referred to [facility] on 01/04/2024 -Messaged sent to medicare interviewer for assistance in care visits Assessment & Plan (12/29/2024 10:21 AM EST): -Has RADIOLOGIST DIAGNOSTIC services with Chavo Martin is applying [employer] 01/11/2024 -In our complex care management program -referred to [facility] on 01/04/2024 -Messaged sent to [facility] medicare interviewer for assistance in care visits Assessment & Plan (08/24/2024 9:19 AM EDT): -Has RADIOLOGIST DIAGNOSTIC services with Chavo Martin is applying [facility] 01/11/2024 -In our complex care management program -referred to [facility] on 01/04/2024 -Messaged sent to [facility] medicare interviewer for assistance in care visits Assessment & Plan (06/29/2024 4:06 PM EDT): -Has RADIOLOGIST DIAGNOSTIC services with Chavo Martin is applying [employer] 01/11/2024 -In our complex care management program -referred to [facility] on 01/04/2024 -Messaged sent to [employer] medicare interviewer for assistance in care visits Assessment & Plan (01/11/2024 9:30 AM EDT): -Has RADIOLOGIST DIAGNOSTIC services with Chavo -She is applying [facility] 01/11/2024 -In our [facility] complex care management program -referred to [facility] on 01/04/2024 -Messaged sent to [employer] medicare interviewer for assistance in care visits Generalized anxiety [...] Management team and will reconnect with [facility]. Information given to patient. PLAN: (check all that apply) Behavioral Health Integration Plan Self- referred to [facility]/N per patient's preference. Assessment & Plan (11/24/2023 11:53 AM EST): STEFANY-7 Total Score: 21 (10/22/2023 10:44 AM) New/Additional Services needed Off-site services for , Behavioral Health Integration Plan External OP therapy referral , Patient Self Plan Patient to utilize skills provided in intervention , Patient to reach out to [facility] team as needed, and Patient to engage in OP therapy Provided patient with support in scheduling an Intake appt with [facility]. Tubular adenoma of colon 09/07/2023 Overview (12/29/2024): [...] for transfusion - Iron infusions ordered by Coding Coordinator DR. Grande - She recieved two sessions [...] for transfusion - Iron infusions ordered by Coding Coordinator DR. Grande - She recieved two sessions [...] for transfusion - Iron infusions ordered by Coding Coordinator DR. Grande - She recieved two sessions [...] for transfusion - Iron infusions ordered by Coding Coordinator DR. Grande - She recieved two sessions [...] pedro back by: Janett Ortega Person calling: KWABENA Date:06/16/24 [...] pedro back by: Janett Ortega Person calling: KWABENA Date:06/16/24 Time: 1218 Assessment & Plan (07/29/2023 4:34 PM EDT): Received magnesium IV in ER -Dose increased to TID - Recheck in 2 weeks Other specified health status 07/20/2023 Overview (07/11/2024): -next physical exam due after 06/29/25 -eye care facilitated by [facility] -dental home is [facility] -health care proxy filed 06/29/24 Assessment & Plan (06/29/2024 4:03 PM EDT): -next physical exam due after 06/29/25 -eye care facilitated by [facility] -dental home is [facility] -health care proxy given and filed [...] on scene within 10 minutes, transfer completed [facility] ER called with expect Chronic GERD 05/26/2023 [...] had ultrasound sound for abdominal pain at [facility] revealing diffusely echogenic parenchyma with [...] had ultrasound sound for abdominal pain at [facility] revealing diffusely echogenic parenchyma with [...] had ultrasound sound for abdominal pain at [facility] revealing diffusely echogenic parenchyma with [...] had ultrasound sound for abdominal pain at [facility] revealing diffusely echogenic parenchyma with [...] had ultrasound sound for abdominal pain at [facility] revealing diffusely echogenic parenchyma with [...] been [facility] but has [...] subsequently declined -Admitted for alcohol detox at [facility] 04/09/24 -reports she is currently not [...] been referred to [facility] for Support and Recovery but has [...] subsequently declined -Admitted for alcohol detox at [facility] 04/09/24 -reports she is currently not [...] been referred to [facility] for Support and Recovery but has [...] subsequently declined -Admitted for alcohol detox at [facility] 04/09/24 -reports she is currently not [...] phenobarb improved her symptoms, patient declined life skills coordinator volunteer help to place her in rehab, is [...] phenobarb improved her symptoms, patient declined life skills coordinator volunteer help to place her in rehab, is [...] type, invasive tumor 2.2 cm ER positive, FL positive, HER-2/RON negative, two sentinel nodes negative. -S/p RIGHT mastectomy with sentinel node bx by Dr. Martinezat [facility] -Adriamycin/Cytoxan based chemotherapy started Oct, completed [...] type, invasive tumor 2.2 cm ER positive, FL positive, HER-2/RON negative, two sentinel nodes negative. -S/p RIGHT mastectomy with sentinel node bx by Dr. Prescott [facility] -Adriamycin/Cytoxan based chemotherapy started Oct, completed [...] type, invasive tumor 2.2 cm ER positive, FL positive, HER-2/RON negative, two sentinel nodes negative. -S/p RIGHT mastectomy with sentinel node bx by Dr. Martinezat [facility] -Adriamycin/Cytoxan based chemotherapy started Oct, completed [...] type, invasive tumor 2.2 cm ER positive, FL positive, HER-2/RON negative, two sentinel nodes negative. -S/p RIGHT mastectomy with sentinel node bx by Dr. Martinezat [facility] -Adriamycin/Cytoxan based chemotherapy started Oct, completed [...] type, invasive tumor 2.2 cm ER positive, FL positive, HER-2/RON negative, two sentinel nodes negative. -S/p RIGHT mastectomy with sentinel node bx by Dr. Martinezat [facility] -Adriamycin/Cytoxan based chemotherapy started Oct, completed [...] type, invasive tumor 2.2 cm ER positive, FL positive, HER-2/RON negative, two sentinel nodes negative. -S/p RIGHT mastectomy with sentinel node bx by Dr. Prescott [facility] -Adriamycin/Cytoxan based chemotherapy started Oct, completed [...] type, invasive tumor 2.2 cm ER positive, FL positive, HER-2/RON negative, two sentinel nodes negative. -S/[facility] Oct, completed [...] type, invasive tumor 2.2 cm ER positive, FL positive, HER-2/RON negative, two sentinel nodes negative. -S/[facility] started Oct, completed [...] type, invasive tumor 2.2 cm ER positive, FL positive, HER-2/RON negative, two sentinel nodes negative. -S/p RIGHT mastectomy with sentinel node bx by Dr. Prescott [facility] -Adriamycin/Cytoxan based chemotherapy started Oct, completed [...] type, invasive tumor 2.2 cm ER positive, FL positive, HER-2/RON negative, two sentinel nodes negative. -S/p RIGHT mastectomy with sentinel node bx by Dr. Martinezat [facility] -Adriamycin/Cytoxan based chemotherapy started Oct, completed [...] Overview (06/28/2024): Lab Results Component Value Date [id number] 58.3 06/16/2024 [id number] 106.4 01/04/2024 [id number] 76.8 09/22/2023 Assessment & Plan (06/29/2024 3:39 PM EDT): Lab Results Component Value Date [id number] 58.3 06/16/2024 [id number] 106.4 01/04/2024 [id number] 76.8 09/22/2023 Assessment & Plan (12/14/2023 12:09 PM EST): Lab Results Component Value Date [id number] 76.8 09/22/2023 -Labs ordered for further evaluation: Vitmain D, 25-hydroxy, Total, Immunoassay. 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 Per Dr. Krish Loomis's note from [facility] [employer], pt was due for repeat colposcopy in [...] CIN2-3. Per Dr. Krish Loomis's note from [facility], pt was due for repeat colposcopy in [...] CIN2-3. Per Dr. Krish Loomis's note from [facility], pt was due for repeat colposcopy in [...] Dr. Krish Loomis's note from [facility] [employer], pt was due for repeat colposcopy in [...] Health Integration Plan Internal Follow up with [facility] Patient Self Plan Patient to utilize skills provided in intervention , Patient to reach out to [facility] team as needed, Patient to reach out to [facility] as needed, and will contact [facility] Intake number to connect with [facility] OP services, and psychiatrist. Rule Out Diagnoses: [...] as pharmacomtherapy, [facility] smoking cessation group, and [facility] pharmacy smoking cessation clinic Discussed USPSTF recommends [...] as pharmacomtherapy, [facility] smoking cessation group, and [facility] pharmacy smoking cessation clinic Discussed USPSTF recommends [...] as pharmacomtherapy, [facility] smoking cessation group, and [facility] pharmacy smoking cessation clinic [facility]ed [facility] annual lung cancer screening with low [...] as pharmacomtherapy, [facility] smoking cessation group, and [facility] pharmacy smoking cessation clinic Discussed [facility] recommends annual lung cancer screening with low [...] as pharmacomtherapy, [facility] smoking cessation group, and [facility] pharmacy smoking cessation clinic Discussed [facility] recommends annual lung cancer screening with low [...] flare 05/11/2024 12/29/2024 Overview (07/13/2024): Seen by archives technician Dr. Bernstein 05/11/24 or evaluation of acute [...] Plan (07/13/2024 2:21 PM EDT): Seen by archives technician Dr. Bernstein 05/11/24 or evaluation of acute [...] negative acid. Acute gout of left foot 04/25/2024 12/2 04/2024 Alcohol dependence with unsp ecified alcohol-induced disorder [...] EDT): Patient requesting a Physical for her RADIOLOGIST DIAGNOSTIC hours to be re-instated. On exam today, her vitals are stable and her exam seems unchanged from previous one. Work up in progress for her c/o bilateral foot pain Hospital discharge follow-up 06/18/2023 07/20/2023 Assessment & Plan (07/14/2023 10:23 AM EDT): Patient here for a HDF. She was admitted to [facility] from 06/05-06/08 . She presented with concerns [...] Hyperaldosteronism 11/16/2022 3 Overview (11/16/2022): Seen by [facility] 04/03/2022. Initially seen 12/2021 for hyperaldosteronism. Labs [facility] 10/2021 aldosterone 8, plasma renin 0.11, aldosterone/renin 72.7. She was likely on spironolactone and lisinopril at time of labs. Advise no spironolactone for 6 weeks and recheck renin aldosterone levels with renal panel and magnesium in bioinformatics computer scientist. Assessment & Plan (11/16/2022 10:55 AM EST): Seen by [facility] 04/03/2022. Initially seen 12/2021 for hyperaldosteronism. Labs [facility] 10/2021 aldosterone 8, plasma renin 0.11, aldosterone/renin 72.7. She was likely on spironolactone and lisinopril at time of labs. Advise no spironolactone for 6 weeks and recheck renin aldosterone levels with renal panel and magnesium in bioinformatics computer scientist. Anxiety 04/19/2014 01/28/2024 Encounters Date Type Department Care Team Description 01/27/2025 Orders Only [facility] [address] [place] [address] Shereen Latham MD History of right breast cancer (Primary Dx) 01/27/2025 Orders Only [facility] [address] [place] [address] Shereen Latham MD Hypomagnesemia (Primary Dx) 01/24/2025 1:00 PM EDT Clinical Support [facility] DIABETES/NUTRITIO N [address] [place] [address] History of chronic CHF (Primary Dx) 01/24/2025 Telephone [facility] [address] [place] [address] Shereen Latham MD Medication Question 01/24/2025 Travel 01/19/2025 Orders Only [facility] [address] [place] [address] Stacey Khan MD Women's annual routine gynecological examination (Primary Dx) 01/19/2025 Orders Only [address] [address] Stacey Khan MD Breast pain, left (Primary Dx) 01/17/2025 3:00 PM EDT Nutrition [facility] DIABETES/[place] [address] History of chronic CHF 01/17/2025 Refill [facility] P[facility]S [address] [place] [address] Shereen Latham MD Pain 01/17/2025 Travel 01/17/2025 Refill [facility] [address] [place] [address] Mayda Rush MD Pain 01/16/2025 Telephone [facility] [address] [place] [address] Shereen Latham MD Appointment Request 01/13/2025 Population Health Risk Score [facility] ([facility] Department [address] [place] [phone] Provider, Population Health Generic 01/12/2025 Refill [facility] [address] [place] [address] Shereen Latham MD Benign essential hypertension 01/09/2025 Refill [facility] [address] [place] [address] Shereen Latham MD Gastroesophageal reflux disease, unspecified whether esophagitis present; Vitamin D deficiency; Nasal congestion 01/03/[address] [address] Shereen Latham MD Referral 12/29/2024 10:30 AM EST Office Visit [address] [address] Shereen Latham MD History of right breast [...] coordination; Tubular adenoma of colon 12/29/[address] [address] Shereen Latham MD Results 12/29/2024 Orders Only [address] [address] Shereen Latham MD Gout, unspecified cause, unspecified chronicity, unspecified site 12/29/2024 Orders Only GENERIC EXTERNAL DATA DEPARTMENT Provider, Generic External Data 12/29/2024 Travel 12/22/[address] [address] Shereen Latham MD Durable Medical Equipment; chartprep 12/22/[address] [address] Shereen Latham MD Nurse Triage 12/21/2024 3:30 PM EST Telemedicine [address] [address] Nupur Bullock, Pushpa Preventative health care (Primary Dx) 12/21/2024 Travel 12/21/2024 Refill [facility] [address] [place] [address] Shereen Latham MD Pain 12/20/2024 Orders Only [facility] External Provider, [facility] 12/14/2024 Travel 12/12/2024 Patient Outreach [address] [address] Shereen Latham MD Transition Of Care (Tcm) 12/10/2024 Orders Only GENERIC EXTERNAL DATA DEPARTMENT Provider, Generic External Data 12/09/[address] [address] Shereen Latham MD Nurse Triage 12/07/[address] [address] Shereen Latham MD ER Follow-up 12/06/2024 Orders Only GENERIC EXTERNAL DATA DEPARTMENT Provider, Generic External Data 12/03/2024 Travel 11/25/2024 Orders Only [address] [address] Shereen Latham MD Vaginal lesion (Primary Dx) 11/23/2024 3:30 PM EST Telemedicine [address] [address] Nupur Bullock PharmD Benign essential hypertension (Primary Dx) 11/23/[address] [address] Shereen Latham MD Referral 11/22/2024 Refill [facility] [address] [place] [address] Shereen Latham MD Pain 11/22/2024 Patient Outreach [address] [address] Shereen Latham MD Transition Of Care (Tcm) 11/18/2024 Telephone [facility] [address] [place] [address] Violetta Mackey MA Breast Cancer Screening 11/17/2024 2:40 PM EST Office Visit [facility] [address] [address] Shereen Latham MD Benign essential hypertension (Primary Dx); Depression with anxiety 11/17/2024 Travel 11/17/2024 Telephone [facility] [address] [place] [address] Shereen Latham MD Nurse Triage 2024 Travel from Last 3 Months Immunizations Name [...] Description 02/13/2025 2:00 PM EDT Clinical Support [facility] DIABETES/NUTRITION [address] [place] [address] [place] [address] 02/17/2025 2:30 PM EDT Office Visit [facility] AD[facility] DENTAL [address] [place] [address] Isa De La Rosa, DDS [address] [place] [address] 03/29/2025 2:00 PM EDT Office Visit [facility] [address] [place] [address] Heidi, Jenny [address] [place] [address] 04/25/2025 2:30 PM EDT Medication Management [facility] [address] [place] [address] Nupur Bullcok, PharmD [address] [place] [address] Health Maintenance Due Date Last Done Comments [...] 03/31/2024, 08/16/2021, Additional history exists Depression Monitoring 06/28/2025 12/29/2024, 025 DTaP/Tdap/Td Vaccines (4 - Tdap) 06/29/2025 08/10/2020, [...] Procedure Name Priority Date/Time Associated Diagnosis Comments MAGNESIUM Routine 02/07/2025 9:49 AM EDT Hypomagnesemia HIGH SENSITIVITY TROPONIN I Routine 01/19/2025 4:33 [...] Recently Relevant to Health Maintenance Results * Magnesium (02/07/2025 9:49 AM EDT) Only the most recent of3 resultswithin the time period is included. Pathologist [facility] Magnesium 1.7 1.6 - 2.6 mg/dL [facility] Blood Venous blood specimen / Unknown 02/07/2025 9:49 AM EDT 02/07/2025 11:07 AM EDT Shereen Latham MD LAB BLOOD ORDERABLES Final Result Performing Organization Address [facility] de Phone Number [facility] [address] [place] [phone] * D Dimer High Sensitivity (01/19/2025 4:33 PM EDT) [facility] D Dimer High Sensitivity <150 NG/ML [facility] Comment:D-DIMER HS REFERENCE RANGENote: Our [...] ORDERAB LES Final Result Performing Organization Address [facility] de Phone Number [facility] [address] [place] [phone] * High Sensitivity Troponin I (01/19/2025 4:33 PM EDT) Only the most recent of2 resultswithin the time period is included. [facility] TROPONIN I HIGH SENSITIVITY 7.8 <3.5 - 17.0 ng/L [facility] Comment:The Henriquez high sens itivity Troponin-I results should beused in conjunction with other diagnostic information suchas ECG, clinical observations and information, and patientsymptoms to aid in the diagnosis of MT. 01/19/2025 4:33 PM EDT 01/19/2025 4:34 PM EDT Generic External Data Provider LAB BLOOD ORDERAB LES Final Result Performing Organization Address City/[facility]/ZIP Co de Phone Number [facility] [address] [place] [address] [phone] * B Type Natriuretic Peptide (BNP) (01/19/2025 4:33 PM EDT) Only the most recent of2 resultswithin the time period is included. [facility] B Type Natriuretic Peptide 22 <100 pg/mL [facility] 01/19/2025 4:33 PM EDT 01/19/2025 4:34 PM EDT Generic External Data Provider LAB BLOOD ORDERAB LES Final Result Performing Organization Address [facility] de Phone Number [facility] [address] [place] [phone] * (ABNORMAL) CBC auto differential (12/29/2024 10:53 AM EST) Only the most recent of3 resultswithin the time period is included. [facility] White Blood Count 13.5(H) 4.8 - 10.8 X10*3/uL [facility] Red Blood Count 3.97(L) 4.20 - 5.50 X10*6/uL [facility] Hemoglobin 11.4(L) 12.0 - 16.0 g/dl [facility] Hematocrit 36.4(L) 37.0 - 47.0 % [facility] Mean Corpuscular Volume 91.7 80.0 - 98.0 fL [facility] Mean Corpuscular Hemoglobin 28.7 27.0 - 33.0 pg [facility] Mean Corpuscular HGB Conc 31.3 31.0 - 35.0 g/dl [facility] Red Cell Distribution Width 14.8 11.0 - 16.0 % [facility] Platelet Count 370 160 - 400 X10*3/uL [facility] Mean Platelet Volume 10.2 9.4 - 12.3 fL [facility] Neutrophils Percent Auto 70.1 45 - 73 % [facility] Imm Gran Pct Auto 1.8(H) 0.0 - 0.4 % [facility] Lymphocytes Percent Auto 18.9(L) 20 - 40 % [facility] Monocytes Percent Auto 7.8 2 - 11 % [facility] Eosinophils Percent Auto 0.7 0 - 4 % [facility] Basophils Percent Auto 0.7 0 - 2 % [facility] NRBC Pct Auto 0.0 0.0 - 0.2 /100WBC [facility] Neutrophils Absolute Auto 9.5(H) 2.0 - 8.3 x10*3/uL [facility] Imm Gran Abs Auto 0.25(H) 0.00 - 0.03 X10*3/uL [facility] Lymphocytes Absolute Auto 2.6 1.2 - 4.9 X10*3/uL [facility] Monocytes Absolute Auto 1.1 0.1 - 1.2 X10*3/uL [facility] Eosinophils Absolute Auto 0.1 0.0 - 0.4 X10*3/uL [facility] Basophils Absolute Auto 0.1 0.0 - 0.2 X10*3/uL [facility] NRBC Abs Auto 0.000 0.0 - 0.012 X10*3/uL [facility] 12/29/2024 10:5 3 AM EST 12/29/2024 1:06 PM EST us Generic External Data Provider LAB BLOOD ORDERAB LES Final Result [facility] [address] [place] [address] [phone] * (ABNORMAL) Uric acid (12/29/2024 10:53 AM EST) Uric Acid 5.8(H) 2.4 - 5.7 mg/dL [facility] Blood Venous blood specimen / Unknown 12/29/2024 10:53 AM EST 12/29/2024 1:06 PM EST Shereen Latham MD LAB BLOOD ORDERABLES Final Result Performing Organization Address [facility]/ZIP Co de Phone Number [facility] [address] [place] [address] [phone] * (ABNORMAL) Lipid Panel, Standard (12/29/2024 10:53 AM EST) Triglycerides 192(H) <150 mg/dL [facility] Comment:Desirable Triglyceri de: less than 150 mg/dLBorderline High Triglyceride 150-199 mg/dLHigh Triglyceride: 200-499 mg/dLVery High Triglyceride: greater than or equal to 5OO mg/dL Cholesterol 197 <200 mg/dL [facility] Comment:Desirable Cholestero l: less than 200 mg/dLBorderline High Cholesterol: 200-239 mg/dLHigh Cholesterol: greater than 239 mg/dL LDL Cholesterol Calculated 111(H) <100 mg/dL [facility] Comment:Desirable LDL: less than 100 mg/dLNear Optimal/Above Optimal LDL: 110- 129 mg/dLBorderline High LDL: 130-159 mg/dLHigh LDL: 160-189 mg/dLVery High LDL: greater than or equal to 190 mg/dL HDL Cholesterol 48 >40 mg/dL [facility] Comment:Desirable HDL: grea ter than 40 mg/dL Note: This HDL assay may give artificially low results in patients with liver disease. Blood Venous blood specimen / Unknown 12/29/2024 10:53 AM EST 12/29/2024 1:06 PM EST Shereen Latham MD LAB BLOOD ORDERABLES Final Result Performing Organization Address City/[facility]/ZIP Co de Phone Number [facility] [address] [place] [address] [phone] * (ABNORMAL) Basic Metabolic Panel (12/29/2024 10:53 AM EST) Sodium 139 135 - 145 mmol/L [facility] Potassium 4.1 3.3 - 5.1 mmol/L [facility] Chloride 105 96 - 108 mmol/L [facility] Carbon Dioxide 23 22 - 29 mmol/L [facility] Anion Gap 15 12 - 20 [facility] Urea Nitrogen (BUN) 32(H) 9 - 16 mg/dL [facility] Creatinine, Serum 0.91 0.5 - 1.4 mg/dL [facility] Estimated Glomerular Filt Rate >60 [facility] Comment:Chronic Kidney Disea se: Estimated GFR < 60 mL/min/1.95q7Nuefmq Kidney Disease: Estimated GFR < 15 mL/min/1.73m2 Glucose 161(H) 60 - 115 mg/dL [facility] Calcium 9.3 8.4 - 10.2 mg/dL [facility] Blood Venous blood specimen / Unknown 12/29/2024 10:53 AM EST 12/29/2024 1:06 PM EST Shereen Latham MD LAB BLOOD ORDERABLES Final Result [facility] [address] [place] [address] [phone] * XR Knee 1-2 Views Right (12/20/2024 7:45 AM EST) Anatomical Region Laterality Modality Lower Extremities, Knee Right Radiogra phic Imaging 12/20/2024 7:45 AM EST Narrative 12/20/2024 8:20 AM EST ? [facility] ?[address] ?[place] [address] ?XRay Report ? Signed ? Patient: Cast,Azra ?MR#: [id number] ?? [id number] ? : 1975 ?Acct:[id number] ? Age/Sex: 49 / F ?ADM Date: 02/18/25 ? Loc: HO.ED ? Attending Dr: ? Ordering Physician: Boby Dykes MD ?? Date of Service: 12/20/24 ?? Procedure(s): XR knee RT 2V ?? Accession Number(s): [id number] ? cc: Shereen Latham MD; Boby Dykes [...] DD/ 0745 ? TD/TT: 12/20/24 0751 ? Seafood And Service Meat Manager: ? Procedure Note Gypsy Jonas - 12/20/2024 [place] [address] XRay Report Signed Patient: Maged Csat#: [id number] : 1975Acct:[id number] Age/Sex: 49 / FADM Date: 12/20/24 Loc: HO.ED Attending Dr: Ordering Physician: Boby Dykes MD Date of Service: 12/20/24 Procedure(s): XR knee RT 2V Accession Number(s): [id number] cc: Shereen Latham MD; Boby Dykes MD [...] 12/20/24 0817 DD/ 0745 TD/TT: 12/20/24 0751 Seafood And Service Meat Manager: [facility] External Provider IMG XR PROCEDURES Edited Result - Final * XR Chest 1 View (12/11/2024 12:34 AM EST) Anatomical Region Laterality Modality Chest Radiographic Celina ging 12/11/2024 12:3 4 AM EST Narrative 12/11/2024 12:37 AM EST ? [facility] ?[address] ?[place] [address] ?XRay Report ? Signed ? Patient: Azra Cast ?MR#: [id number] ?? 3774 ? : 1975 ?Acct:[id number] ? Age/Sex: 49 / F ?ADM Date: 12/10/24 ? Loc: HO.ED ? Attending Dr: ? Ordering Physician: Sury Bustamante MD ?? Date of Service: 12/10/24 ?? Procedure(s): XR chest 1V ?? Accession Number(s): [id number] ? cc: Shereen Latham MD; Sury Bustamante MD ? CLINICAL HISTORY: chest pain cough ? 1 view chest x-ray ? Comparison: CR/FL - XR CHEST 2V - 10/31/24 17:50 [...] in OV> ?12/11/246 ? DD/ ? TD/TT: 12/11/24 0034 ? Seafood And Service Meat Manager: ? Procedure Note Donalonzoter, Image - 12/11/[address] [address] XRay Report Signed Patient: Maged Cast#: [id number] : 1975Acct:[id number] Age/Sex: 49 / FADM Date: 12/10/24 Loc: HO.ED Attending Dr: Ordering Physician: Sury Bustamante MD Date of Service: 12/10/24 Procedure(s): XR chest 1V Accession Number(s): [id number] cc: Shereen Latham MD; Sury Bustamante MD CLINICAL HISTORY: chest pain cough 1 view chest x-ray Comparison: CR/FL - XR CHEST 2V - 10/31/24 17:50 EST Findings: No consolidation or effusion. Heart size is normal. No acute fracture. Right breast implant. IMPRESSION: 1. No acute cardiopulmonary findings. This document has been electronically signed by: Ashley Vazquez MD on 12/11/2024 00:34:57 Dictated By: Aslhey Vazquez MD Signed By: <Electronically signed by Ashley Vazquez MD in OV> 12/11/246 DD/ 0034 TD/TT: 12/11/2433 Seafood And Service Meat Manager: [facility] External Provider IMG XR PROCEDURES Final Result * SARS-CoV-2 RNA, Influenza A/B, and RSV RNA, Ql NAAT (12/10/2024 11:48 PM EST) Only the most recent of2 resultswithin the time period is included. Influenza A PCR NEGATIVE Negative [facility] Influenza B PCR NEGATIVE Negative [facility] Resp Syncy Virus RNA Qual PCR NEGATIVE Negative [facility] SARS COV2 PCR NEGATIVE Negative [facility] Comment:All test results mus t [...] use by authorized laboratories.Testing performed on the [employer] GeneXpert utilizingreal-time RT-PCR.All SARS CoV2 and positive influenza A/B results arereported to [facility]. 12/10/2024 11:4 8 PM EST 12/10/2024 11:53 PM EST us Generic External Data Provider LAB MICROBIOLOGY - GENERAL ORDERABLES Final Result [facility] [address] [place] [phone] * (ABNORMAL) Comprehensive Metabolic Panel (12/10/2024 11:48 PM EST) Only the most recent of2 resultswithin the time period is included. Sodium 143 135 - 145 mmol/L [facility] Potassium 3.7 3.3 - 5.1 mmol/L [facility] Chloride 108 96 - 108 mmol/L [facility] Carbon Dioxide 23 22 - 29 mmol/L [facility] Anion Gap 16 12 - 20 [facility] Urea Nitrogen (BUN) 24(H) 9 - 16 mg/dL [facility] Creatinine, Serum 1.11 0.5 - 1.4 mg/dL [facility] Creatinine Clr Calc Pharmacy 69.3 [facility] Comment:Provided height and weight: 170.18 cm,90.7 kg.eGFR (calculated from the MDRD study equation) and eCrCl(calculated from the Cockcroft-Gault equation) are based ondifferent parameters and may not yield comparable results.If eCrCl result is absurd, please check patient'sheight/weight. Estimated Glomerular Filt Rate 52 [facility] Comment:Chronic Kidney Disea se: Estimated GFR < 60 mL/min/1.90i9Foidvt Kidney Disease: Estimated GFR < 15 mL/min/1.73m2 Glucose 150(H) 60 - 115 mg/dL [facility] Calcium 9.3 8.4 - 10.2 mg/dL [facility] Bilirubin, Total 0.2 0.0 - 1.0 mg/dL [facility] Aspartate Amino Transferase 19 5 - 31 U/L [facility] Alanine Aminotransferase 14 0 - 31 U/L [facility] Total Protein 7.6 6.5 - 8.0 g/dL [facility] Albumin Level 4.0 3.5 - 5.0 g/dL [facility] Alkaline Phosphatase 87 39 - 117 U/L [facility] 12/10/2024 11:4 8 PM EST 12/10/2024 11:53 PM EST us Generic External Data Provider LAB BLOOD ORDERAB LES Final Result Performing Organization Address City/State/[facility] Co de Phone Number [facility] [address] [place] [phone] * CT Abdomen Pelvis w/ Contrast (12/06/2024 1:20 PM EST) Anatomical Region Laterality Modality Body, Pelvis, Abdomen Computed T omography 12/06/2024 1:20 PM EST Narrative 12/06/2024 2:00 PM EST ? [facility] ?[address] [facility] ?[place] [address] ? CT Scan Report ? Signed ? Patient: Cast,Azra ?MR#: [id number] ?? 3774 ? : 1975 ?Acct:[id number] ? Age/Sex: 49 / F ?ADM Date: 02/04/25 ? Loc: HO.ED ? Attending Dr: ? Ordering Physician: Leighann Ordonez DO ?? Date of Service: 12/06/24 ?? Procedure(s): CT abdomen pelvis w IV con ?? Accession Number(s): [id number] ? cc: Shereen Latham MD; Leighann Ordonez DO ? Report Number: ?? [id number]: Total DLP = ??712.00 mGy-cm ?? EXAMINATION: [...] DD/ 1320 ? TD/TT: 12/06/24 1333 ? Seafood And Service Meat Manager: ? Procedure Note Sumi, Image - 12/06/[address] [address] [address] Scan Report Signed Patient: Maged Cast#: [id number] : 1975Acct:[id number] Age/Sex: 49 / FADM Date: 12/06/24 Loc: HO.ED Attending Dr: Ordering Physician: Leighann Ordonez DO Date of Service: 12/06/24 Procedure(s): CT abdomen pelvis w IV con Accession Number(s): [id number] cc: Shereen Latham MD; Leighann Ordonez DO Report Number: [id number]: Total DLP = 712.00 mGy-cm EXAMINATION: CT [...] Reeves MD Signed By: <Electronically signed by Mitchell Valdez OV> 12/06/24 1358 DD/ 1320 TD/TT: 12/06/24 1333 Seafood And Service Meat Manager: us [facility] External Provider IMG CT PROCEDURES Final Result * Urinalysis w/reflex microscopic (12/06/2024 11:14 AM EST) Color Urine Yellow [facility] Appearance Urine Clear [facility] PH 6.0 5.0 - 9.0 [facility] Glucose Urine UA Negative Negative mg/dL [facility] Urine Blood Negative Negative [facility] Specific [place] - Urine 1.025 1.005 - 1.025 [facility] Urine Protein Negative Neg-Trace mg/dL [facility] Urine Ketones Negative Negative mg/dL [facility] Nitrite Urine Negative Negative [facility] Leukocyte Esterase Urine Negative Negative [facility] 12/06/2024 11:1 4 AM EST 12/06/2024 11:18 AM EST Narrative [facility] - 12/06/2024 11:22 AM EST Urine, Clean Catch us Generic External Data Provider LAB URINE ORDERAB LES Final Result Performing Organization Address [facility] Co de Phone Number [facility] [address] [place] [phone] * Lipase (12/06/2024 9:42 AM EST) Lipase 50 8 - 78 U/L [facility] 12/06/2024 9:42 AM EST 12/06/2024 9:45 AM EST us Generic External Data Provider LAB BLOOD ORDERAB LES Final Result Performing Organization Address City/[facility] Co de Phone Number [facility] [address] [place] [phone] * (ABNORMAL) Colonoscopy (07/11/2024) [facility] Colonoscopy Abnormal( A) Normal Comment:Herberth Stokes MD ?tubular adenoma x 3 Herberth Stokes MD HEALTH MAINTENANCE Final Result * Hepatitis Panel, General (06/16/2024 8:22 AM EDT) [facility] Hepatitis A IgM Nonreactive Nonreactive [facility] Comment:IgM antibodies to VIRAMONTES V not detected; does not exclude earlyacute or recovered HAV infection. ~Hepatitis B Surface Antibody REACTIVE Nonreactive [facility] Comment:REACTIVE: > 11.99 mI U/mL Hepatitis B Core Antibody Nonreactive Nonreactive [facility] Hepatitis C Antibody Nonreactive Nonreactive [facility] Comment:Antibodies to HCV no t detected; does not exclude early acuteHCV infection. Hepatitis B Surface Ag Negative Negative [facility] Blood Venous blood specimen / Unknown 06/16/2024 8:22 AM EDT 06/16/2024 11:18 AM EDT Shereen Latham MD LAB BLOOD ORDERABLES Final Result Performing Organization Address [facility]/ZIP Co de Phone Number [facility] [address] [place] [address] [phone] * HIV-1/2 Antigen and Antibodies, Fourth Generation, with Reflexes (02/24/2024 8:47 AM EDT) [facility] HIV AB/AG Nonreactive Nonreactive [facility] Comment:HIV-1 p24 Ag and/or HIV-1/HIV-2 Ab not detected.A test result that is nonreactive does not exclude thepossibility of exposure to or infection with HIV-1 and/orHIV-2. Nonreactive results in this assay for individualswith prior exposure to HIV-1 and/or HIV-2 may be due toantigen and antibody levels that are below the limit ofdetection of this assay.The [employer] HIV Ag/Ab Combo assay result andsupplemental assay results should be interpreted inconjunction with the patient's clinical presentation,history and other laboratory results. If the results areinconsistent with clinical evidence, additional testing issuggested to confirm the result. Blood Venous blood specimen / Unknown 02/24/2024 8:47 AM EDT 02/24/2024 11:22 AM EDT [facility] LAB BLOOD ORDERABLES Final Resul t [facility] [address] [place] [address] [phone] * (ABNORMAL) Cologuard?? colon cancer screening (08/27/2023 11:24 AM EDT) Cologuard Result Positive( A) Negative 09/05/2023 10:16 PM EDT [facility] (CLIA #:[id number]) Comment: POSITIVE TEST RESULT. A positive Cologuard [...] (Felix Mccoy al, N Engl J Med 2014;370(14):6475-8684.) Cologuard may produce a false negative or false positive result (no colorectal cancer or precancerous polyp present at colonoscopy follow up). A negative Cologuard test result does not guarantee the absence of CRC or advanced adenoma (pre-cancer). The current Cologuard screening interval is every 3 years. ([place] [employer] Society and U.S. Multi-Society Task Force). Cologuard performance data in a 10,000 patient pivotal study using colonoscopy as the reference method can be accessed at the following location: www.Standardized Safety/results. Additional description of the Cologuard test process, warnings and precautions can be found at www.[employer] Software[employer]drumbird.com. Stool specimen (specimen) 08/27/2023 11:24 AM EDT 08/29/2023 6:48 AM EDT Shereen Latham MD LAB MOLECULAR DIAGNOSTICS ORDERABLES Final Result [facility] (CLIA #:[id number]) [address] [place] [address], * HPV mRNA E6/E7 (08/12/2018 10:57 AM EDT) HPV mRNA E6/E7 Not Detected NOT DETECTED [facility] Comment: This test was performed using the APTIMA(R) HPV Assay ([employer] This assay detects E6/E7 viral messenger RNA (mRNA) from 14 high-risk HPV types (16,18,31,33,35,39,45,51, 52,56,58,59,66,68). For additional information please refer to: http://education.Hitlab.Cylance/faq/HXM109x8 (This link is being provided for informational/ educational purposes only.) The analytical performance characteristics of this assay have been determined by [employer] [place], [place]. The modifications have not been cleared or approved by the FDA. This assay has been validated pursuant to the CLIA regulations and is used for clinical purposes. Test Performed by [facility], [facility], [address] [place] [address] Dwaine Morelos M.D., Ph.D., Director of Laboratories , CLIA [id number] Please note: ??Effective 07/14/2016, HPV testing will be performed using [employer]'s APTIMA test which targets mRNA. Detecting mRNA instead of DNA, as in older methods, offers significant improvements in specificity. 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 Advance Directives and Living Will 07/05/2024 11:59 AM Health Care Proxy Care Teams Boiler Erector Relationship Specialty Start Date End Date Emanuel, MD Shereen [address] [place] [address] PCP - General Family Medicine 11/02/18 Nupur Bullock, CharleneD [address] [place] [address] Pharmacist Internal Medicine 08/09/24 Sury Benitez [address] [place] [address] [place] [address] Pulmonary Disease 09/27/24 Nirali Madrid OD [address] [place] [address] Optometry 10/27/24 Li Grande MD [address] [place] [address] Hematology and Oncology 10/27/24 Anselmo Gates MD [address] [place] [address] Orthopaedic Surgery 10/27/24 Margaret Holman [address] [place] [address] Cardiology 10/27/24 Herberth Stokes MD [address] [facility] [address] [place] [address] Gastroenterology 10/27/24 Hilton Palacios MD [address] [facility], [address] [place] [address] Neurology 02/06/25 Pily Delaney Technical Applications SpecialistLong Term Care Administrator 07/22/24 Elie BRASHER [facility] 12/29/24
--- OUTSIDE RECORDS SUMMARY | 2025-02-09 10:13 | XMS_ITS | Encounter Summary ---
Author Organization [employer] Address [address] [facility] [address] [place] [address] Care Team Providers Care Nail Technician Name Role Phone Shereen Latham MD Primary Care Provider [phone] Nupur Bullock PharmD Unavailable Sury Benitez Unavailable [phone] Nirali Madrid OD Unavailable Li Grande MD Unavailable [phone] Anselmo Gates MD Unavailable Margaret Holman Unavailable Herberth Stokes MD Unavailable [phone] Hilton Palacios MD Unavailable [phone] Encounter Details Date Type Department Care Team (Late st Contact Info) Description 07/27/2023 Orders Only [facility] MEDICINE [address] [place], [place] [phone] Shereen Latham MD [address] [place], [place] [phone] Hypomagnesemia Social History Tobacco Use Types Packs/Day [...] [facility] DIABETES/NUTRITION [address] [place] [address] Ernestina Esteban, RD [address] [place] [address] 02/17/2025 2:30 PM EDT Office Visit [facility] ADULT DENTAL [address] [place] [address] Paz-Connor, Isa, DDS [address] [place] [address] 03/29/2025 2:00 PM EDT Office Visit [facility] ADULT DENTAL [address] [place] [address] Heidi, Jenny [address] [place] [address] 04/25/2025 2:30 PM EDT Medication Management [facility] MEDICINE [address] [place] [address] Nupur Bullock PharmD [address] [place] [address] documented as of this encounter Visit Diagnoses Diagnosis Hypomagnesemia Disorders of magnesium metabolism documented in this encounter Additional Health Concerns Assessment Noted Time PHQ-9 Depression Total Score: 10 023 10:27 AM EDT documented as of this encounter Care Teams Nail Technician Relationship Specialty Start Date End Date Shereen Latham MD [address] [place] [phone] PCP - General Family Medicine 11/02/18 Nupur Bullock, PharmD [address] [place] [address] Pharmacist Internal Medicine 08/09/24 Sury Benitez [address] [facility] [address] [place] [address] Pulmonary Disease 09/27/24 Nirali Madrid OD [address] [place] [address] Optometry 10/27/24 Li Grande MD [address] [place] [address] Hematology and Oncology 10/27/24 Anselmo Gates MD [address] [facility] [address] [place] [address] Orthopaedic Surgery 10/27/24 Margaret Holman [address] [facility] 3rd [place] [address] Cardiology 10/27/24 Herberth Stokes MD [address] [facility] [address] [place] [address] Gastroenterology 10/27/24 Hilton Palacios MD [address] [facility], [address] [place] [address] Neurology 02/06/25 Pily Delaney Stripping Shovel OperatorRecruit Instructor 07/22/24 Elie V[facility] Psychology 12/29/24 documented as of this encounter
--- OUTSIDE RECORDS SUMMARY | 2025-02-09 10:13 | XMS_ITS | Encounter Summary ---
Author Organization [employer] Address 75 [facility] 7t [place] [address] Care Team Providers Care Surveillance Operator Name Role Phone Shereen Latham MD Primary Care Provider [phone] Nupur Bullock PharmD Unavailable Sury Benitez Unavailable [phone] Nirali Madrid OD Unavailable [phone] Li Grande MD Unavailable [phone] Anselmo Gates MD Unavailable Margaret Holman Unavailable Herberth Stokes MD Unavailable [phone] Hilton Palacios MD Unavailable Reason for Visit * Reason Comments Med Refill Encounter Details Date Type Department Care Team (Late st Contact Info) Description 12/02/2022 Refill [facility] MEDICINE 230 [place], [place] [phone] Shereen Latham MD 230 [place], [place] [phone] Wheeze (Primary Dx); Pain Social History Tobacco [...] Description 02/13/2025 2:00 PM EDT Clinical Support [facility] DIABETES/NUTRITION [address] [place] [address] Ernestina Esteban, RD 230 [place] [address] 02/17/2025 2:30 PM EDT Office Visit [facility] ADULT DENTAL [address] [place] [address] Paz-ConnorAlfredoIsa, DDS 230 [place] [address] 03/29/2025 2:00 PM EDT Office Visit [facility] ADULT DENTAL [address] [place] [address] Heidi, Jenny 230 [place] [address] 04/25/2025 2:30 PM EDT Medication Management [facility] MEDICINE [address] [place] [address] Nupur Bullock, CharleneD [address] [place] [address] documented as of this encounter Visit Diagnoses Diagnosis Wheeze- Primary Wheezing Pain Generalized pain documented in this encounter Care Teams Surveillance Operator Relationship Specialty Start Date End Date Shereen Latham MD [address] [place] [address] PCP - General Family Medicine 11/02/18 Nupur Bullock, PharmD [address] [place] [address] Pharmacist Internal Medicine 08/09/24 Sury Benitez [address] [place] [address] Dr [address] [place] [address] Pulmonary Disease 09/27/24 Nirali Madrid OD [address] [place] [address] Optometry 10/27/24 Li Grande MD 575 [place] [address] Hematology and Oncology 10/27/24 Anselmo Gates MD [address] [place] [address] Orthopaedic Surgery 10/27/24 Margaret Holman [address] 3rd [place] [address] Cardiology 10/27/24 Herberth Stokes MD 11 [facility] 3rd [place] [address] Gastroenterology 10/27/24 Hilton Palacios MD 15 [facility], [address] [place] [address] Neurology 02/06/25 Pily Delaney Aerial Crop DusterHuman Resources Benefits Manager 07/22/24 Elie Vicky [facility] 12/29/24 documented as of this encounter
--- OUTSIDE RECORDS SUMMARY | 2025-02-09 10:13 | XMS_ITS | Encounter Summary ---
Author Organization [employer] Address 75 [facility] 7t [place] [address] Care Team Providers Care Behavioral Services Tech Name Role Phone Shereen Latham MD Primary Care Provider [phone] Nupur Bullock PharmD Unavailable Sury Benitez Unavailable [phone] Nirali Madrid OD Unavailable [phone] Li Grande MD Unavailable [phone] Anselmo Gates MD Unavailable Margaret Holman Unavailable Herberth Stokes MD Unavailable [phone] Hilton Palacios MD Unavailable [phone] Encounter Details Date Type Department Care Team (Late st Contact Info) Description 11/16/2022 Abstract [facility] MEDICINE 230 [place], [place] [phone] Shereen Latham MD 230 [place], [place] [phone] Social History Tobacco Use Types Packs/Day Years [...] Krish Loomis's note from [facility] COATER HELPER, pt was due for repeat colposcopy in [...] Problem(s): Hyperaldosteronism (CMS/HCC) (Resolved 07/29/2023) Seen by [facility] 04/03/2022. Initially seen 12/2021 for hyperaldosteronism. Labs [facility] 10/2021 aldosterone 8, plasma renin 0.11, aldosterone/renin 72.7. She was likely on spironolactone and lisinopril at time of labs. Advise no spironolactone for 6 weeks and recheck renin aldosterone levels with renal panel and magnesium in engineering group leader. 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 [...] had ultrasound sound for abdominal pain at [facility]. Ultrasound showed diffusely echogenic parenchyma with focal sparing around the gallbladder. No suspicious lesions. Impression showed liver likely representing hepatic steatosis and non- obstructing right kidney stone. documented in this encounter Plan of Treatment Upcoming Encounters Date Type Department Care Team (Late st Contact Info) Description 02/13/2025 2:00 PM EDT Clinical Support [facility] DIABETES/NUTRITION 230 [place] [address] Ernestina Esteban, RD 230 [place] [address] 02/17/2025 2:30 PM EDT Office Visit [facility] ADULT DENTAL 230 [place] [address] Paz-Connor, Isa, DDS 230 [place] [address] 03/29/2025 2:00 PM EDT Office Visit [facility] ADULT DENTAL 230 [place] [address] Heidi, Jenny 230 [place] [address] 04/25/2025 2:30 PM EDT Medication Management [facility] MEDICINE 230 [place] [address] Nupur Bullock, PharmD [address] [place] [address] documented as of this encounter Visit Diagnoses Not on filedocumented in this encounter Care Teams Behavioral Services Tech Relationship Specialty Start Date End Date Shereen Latham MD [address] [place] [address] PCP - General Family Medicine 11/02/18 Nupur Bullock, PharmD [address] [place] [address] Pharmacist Internal Medicine 08/09/24 Sury Benitez [address] [place] [address] [place] [address] Pulmonary Disease 09/27/24 Nirali Madrid OD [address] [place] [address] Optometry 10/27/24 Li Grande MD [address] [place] [address] Hematology and Oncology 10/27/24 Anselmo Gates MD [address] [place] [address] Orthopaedic Surgery 10/27/24 Margaret Holman [address] [facility] [address] 3rd [place] [address] Cardiology 10/27/24 Herberth Stokes MD [address] [facility] [address] 3rd [place] [address] Gastroenterology 10/27/24 Hilton aPlacios MD 15 [facility], [address] [place] [address] Neurology 02/06/25 Pily Delaney Line Appliance AssemblerWater Plant Pump Operator Supervisor 07/22/24 Elie Vicky [facility] 12/29/24 documented as of this encounter
--- OUTSIDE RECORDS SUMMARY | 2025-02-09 10:13 | XMS_ITS | Encounter Summary ---
Author Organization [employer] Address 75 [facility] 7t [place] [address] Care Team Providers Care Helix Coil Winder Name Role Phone Shereen Latham MD Primary Care Provider Nupur Bullock PharmD Unavailable Sury Benitez Unavailable [phone] Nirali Madrid OD Unavailable Li Grande MD Unavailable [phone] Anselmo Gates MD Unavailable Margaret Holman Unavailable Herberth Stokes MD Unavailable [phone] Hilton Palacios MD Unavailable [phone] Reason for Visit * Reason Onset Date Comments ER Follow-up 12/07/2024 Encounter Details Date Type Department Care Team (Late st Contact Info) Description 12/07/2024 Telephone [facility] MEDICINE 230 [place], [place] [phone] Shereen Latham MD 230 [place], [place] [phone] ER Follow-up Social History Tobacco Use Types [...] TC placed to pt to f/u on [facility] ED visit on [...] ED visit on : Date: 12/06/24 Hospital: [facility] Seen for: Flu Patient advised will forward to team nurse for follow up documented in this encounter Plan of Treatment Upcoming Encounters Date Type Department Care Team (Late st Contact Info) Description 02/13/2025 2:00 PM EDT Clinical Support [facility] DIABETES/NUTRITION [address] [place] [address] Ernestina Esteban, RD 230 [place] [address] 02/17/2025 2:30 PM EDT Office Visit [facility] ADULT DENTAL 230 [place] [address] Paz-Connor, Isa, DDS 230 [place] [address] 03/29/2025 2:00 PM EDT Office Visit [facility] ADULT DENTAL 230 [place] [address] Heidi, Jenny 230 [place] [address] 04/25/2025 2:30 PM EDT Medication Management [facility] MEDICINE 230 [place] [address] Nupur Bullock, CharleneD 230 [place] [address] documented as of this encounter Visit Diagnoses Not on filedocumented in this encounter Additional Health Concerns Assessment Noted Time PHQ-9 Depression Total Score: 13 024 4:53 PM EDT documented as of this encounter Care Teams Helix Coil Winder Relationship Specialty Start Date End Date Shereen Latham MD 230 [place] [address] PCP - General Family Medicine 11/02/18 Nupur Bullock, CharleneD 230 [place] [address] Pharmacist Internal Medicine 08/09/24 Sury Benitez [address] [place] [address] [address] [place] [address] Pulmonary Disease 09/27/24 Nirali Madrid OD [address] [place] [address] Optometry 10/27/24 Li Grande MD [address] [place] [address] Hematology and Oncology 10/27/24 Anselmo Gates MD 10 [facility] [address] [place] [address] Orthopaedic Surgery 10/27/24 Margaret Holman 11 [facility] 3rd [place] [address] Cardiology 10/27/24 Herberth Stokes MD 11 [facility] 3rd [place] [address] Gastroenterology 10/27/24 Hilton Palacios MD [address] [place] [address], [address] [place] [address] Neurology 02/06/25 Pily Delaney Window Shade EstimatorBody Cleaner 07/22/24 Elie Vicky [facility] Psychology 12/29/24 documented as of this encounter
--- OUTSIDE RECORDS SUMMARY | 2025-02-09 10:13 | XMS_ITS | Encounter Summary ---
Author Organization [employer] Address 75 [facility] 7t [place] [address] Care Team Providers Care Pipe Fittings Molder Name Role Phone Shereen Latham MD Primary Care Provider [phone] Nupur Bullock PharmD Unavailable [phone] Sury Benitez Unavailable [phone] Nirali Madrid OD Unavailable Li Grande MD Unavailable [phone] Anselmo Gates MD Unavailable Margaret Holman Unavailable Herberth Stokes MD Unavailable [phone] Hilton Palacios MD Unavailable [phone] Encounter Details Date Type Department Care Team (Late st Contact Info) Description 10/11/2024 Telephone [facility] MEDICINE 230 [place], [place] [phone] Shereen Latham MD 230 [place], [place] [phone] Social History Tobacco Use Types Packs/Day Years [...] Description 02/13/2025 2:00 PM EDT Clinical Support [facility] DIABETES/NUTRITION 230 [place] [address] 230 [place] [address] 02/17/2025 2:30 PM EDT Office Visit [facility] ADULT DENTAL 230 [place] [address] Paz-Connor, Isa, DDS 230 [place] [address] 03/29/2025 2:00 PM EDT Office Visit [facility] ADULT DENTAL 230 [place] [address] Heidi, Jenny 230 [place] [address] 04/25/2025 2:30 PM EDT Medication Management [facility] MEDICINE 230 [place] [address] Nupur Bullock PharmD [address] [place] [address] documented as of this encounter Visit Diagnoses Not on filedocumented in this encounter Additional Health Concerns Assessment Noted Time PHQ-9 Depression Total Score: 13 024 4:53 PM EDT documented as of this encounter Care Teams Pipe Fittings Molder Relationship Specialty Start Date End Date Shereen Latham MD [address] [place] [address] PCP - General Family Medicine 11/02/18 Nupur Bullock, CharleneD [address] [place] [address] Pharmacist Internal Medicine 08/09/24 Sury Benitez [address] [place] [address] [place] [address] [place] [address] Pulmonary Disease 09/27/24 Nirali Madrid OD [address] [place] [address] Optometry 10/27/24 Li Grande MD [address] [place] [address] Hematology and Oncology 10/27/24 Anselmo Gates MD [address] [place] [address] Orthopaedic Surgery 10/27/24 Margaret Holman [address] 3rd [place] [address] Cardiology 10/27/24 Herberth Stokes MD [address] 3rd [place] [address] Gastroenterology 10/27/24 Hilton Palacios MD [address] [facility] [address], [address] [place] [address] Neurology 02/06/25 Pily Delaney Technical Services CoordinatorMerchandise Examiner 07/22/24 Elie BRASHER [facility] Psychology 12/29/24 documented as of this encounter
--- OUTSIDE RECORDS SUMMARY | 2025-02-09 10:13 | XMS_ITS | Encounter Summary ---
Author Organization [employer] Address 75 [facility] 7t [place] [address] Care Team Providers Care Inspector Filter Tip Name Role Phone Shereen Latham MD Primary Care Provider [phone] Nupur Bullock PharmD Unavailable [phone] Sury Benitez Unavailable [phone] JuliusNirail castellanos OD Unavailable Li Grande MD Unavailable [phone] Anselmo Gates MD Unavailable Margaret Holman Unavailable Herberth Stokes MD Unavailable [phone] Hilton Palacios MD Unavailable [phone] Encounter Details Date Type Department Care Team (Latest Contact Info) Description 08/16/2021 Abstract [facility] CONVERSIONS Dental, Provider, DDS Social History [...] Description 02/13/2025 2:00 PM EDT Clinical Support [facility] DIABETES/NUTRITION [address] [place] [address] Ernestina Esteban, RD 230 [place] [address] 02/17/2025 2:30 PM EDT Office Visit [facility] ADULT DENTAL [address] [place] [address] Paz-Connor, Isa, DDS 230 [place] [address] 03/29/2025 2:00 PM EDT Office Visit [facility] ADULT DENTAL [address] [place] [address] Heidi, Jenny 230 [place] [address] 04/25/2025 2:30 PM EDT Medication Management [facility] MEDICINE [address] [place] [address] Nupur Bullock, PharmD [address] [place] [address] documented as of this encounter Visit Diagnoses Not on filedocumented in this encounter Care Teams Inspector Filter Tip Relationship Specialty Start Date End Date Shereen Latham MD [address] [place] [address] PCP - General Family Medicine 11/02/18 Nupur Bullock, PharmD [address] [place] [address] Pharmacist Internal Medicine 08/09/24 Sury Benitez [address] [place] [address] [place] [address] Pulmonary Disease 09/27/24 Nirali Madrid OD [address] [place] [address] Optometry 10/27/24 Li Grande MD 575 [place] [address] Hematology and Oncology 10/27/24 Anselmo Gates MD [address] [place] [address] Orthopaedic Surgery 10/27/24 Margaret Holman [address] [facility] [address] 3rd [place] [address] Cardiology 10/27/24 Herberth Stokes MD [address] [facility] [address] [place] [address] Gastroenterology 10/27/24 Hilton Palacios MD 15 [facility], [address] [place] [address] Neurology 02/06/25 Pily Delaney Oyster PreparerHospice Fellow 07/22/24 Elie Vicky [facility] 12/29/24 documented as of this encounter
--- OUTSIDE RECORDS SUMMARY | 2025-02-09 10:13 | XMS_ITS | Encounter Summary ---
Author Organization [employer] Address 75 [facility] 7t [place] [address] Care Team Providers Care Advanced Analytics Associate Name Role Phone Shereen Latham MD Primary Care Provider [phone] Nupur Bullock PharmD Unavailable Sury Benitez Unavailable [phone] Nirali Madrid OD Unavailable [phone] Li Grande MD Unavailable [phone] Anselmo Gates MD Unavailable Margaret Holman Unavailable Herberth Stokes MD Unavailable [phone] Hilton Palacios MD Unavailable [phone] Reason for Visit * Reason Onset Date Comments Medication Question 08/25/2024 Encounter Details Date Type Department Care Team (Late st Contact Info) Description 08/25/2024 Telephone [facility] MEDICINE 230 [place], [place] [phone] Shereen Latham MD 230 [place], [place] [phone] Medication Question Social History Tobacco Use Types [...] any questions you can contact pt at [phone]. documented in this encounter Plan of Treatment Upcoming Encounters Date Type Department Care Team (Late st Contact Info) Description 02/13/2025 2:00 PM EDT Clinical Support [facility] DIABETES/NUTRITION 230 [place] [address] Ernestina Esteban, RD 230 [place] [address] 02/17/2025 2:30 PM EDT Office Visit [facility] ADULT DENTAL 230 [place] [address] Paz-Connor Isa, DDS 230 [place] [address] 03/29/2025 2:00 PM EDT Office Visit [facility] ADULT DENTAL 230 [place] [address] Heidi, Jenny 230 [place] [address] 04/25/2025 2:30 PM EDT Medication Management [facility] MEDICINE 230 [place] [address] Nupur Bullock PharmD [address] [place] [address] documented as of this encounter Visit Diagnoses Not on filedocumented in this encounter Additional Health Concerns Assessment Noted Time PHQ-9 Depression Total Score: 13 024 4:53 PM EDT documented as of this encounter Care Teams Advanced Analytics Associate Relationship Specialty Start Date End Date Shereen Latham MD [address] [place] [address] PCP - General Family Medicine 11/02/18 Nupur Bullock, PharmD [address] [place] [address] Pharmacist Internal Medicine 08/09/24 Sury Benitez 10 [facility] [address] [place] [address] Pulmonary Disease 09/27/24 Nirali Madrid OD 267 [place] [address] Optometry 10/27/24 Li Grande MD [address] [place] [address] Hematology and Oncology 10/27/24 Anselmo Gates MD [address] [place] [address] Orthopaedic Surgery 10/27/24 Margaret Holman [address] 3rd [place] [address] Cardiology 10/27/24 Herberth Stokes MD [address] 3rd [place] [address] Gastroenterology 10/27/24 Hilton Palacios MD 15 [facility], [address] [place] [address] Neurology 02/06/25 Pily Delaney Satellite Tv InstallerSafety Officer 07/22/24 Elie BRASHER [facility] 12/29/24 documented as of this encounter
== END ==
LOC: HO.CARD 09:21
PROVIDERS: PCP Family Medicine; Visit Provider Nurse Practitioner Family
DX: I42.9 Cardiomyopathy, unspecified (principal)
CPT/HCPCS: 93017; J0280; J2785

== ENCOUNTER → 2025-02-09 09:24 | Outpatient (BNV) | payer MEDICAID, SELFPAY | PROVIDERS: PCP Family Medicine | DX: R06.02 Shortness of breath (principal) | CPT/HCPCS: 78452; 93016; 93018 ==

== ENCOUNTER 2025-02-23 11:30 | Outpatient (REF) | payer MEDICAID, SELFPAY ==
--- NOTE | ~2025-02-23 | US_ITS ---
EXAMINATION: MM DIAGNOSTIC DIGITAL BREAST TOMOSYNTHESIS, LEFT CLINICAL INFORMATION: History of right breast cancer status post mastectomy. Left breast reduction and mastopexy. Left breast pain at 3:00. COMPARISON: Mammography: [facility] on PACS. TECHNIQUE: Digital breast tomosynthesis is performed in both the craniocaudal and mediolateral oblique views along with computer-aided detection (CAD). Synthesized 2D images are generated from the tomosynthesis. FINDINGS: There are scattered areas of fibroglandular density (ACR BI-RADS breast composition Category b). [place] marker in the upper outer breast area of patient's pain without underlying abnormality. There is a new focal asymmetry in the central outer breast posterior depth with questioned subtle distortion. Post reduction mammoplasty changes are stable. No suspicious calcifications or other abnormal findings. Targeted color Doppler ultrasound scanning in the area the patient's pain and new focal asymmetry demonstrate normal fibronodular breast tissue scanning from 1-5 o'clock. There is no sonographic abnormality. US/US breast LT limited mamm only IMPRESSION: 1. No mammographic or sonographic abnormality to account for the patient's left breast pain. Recommend clinical evaluation and follow-up. 2. New focal asymmetry in the central outer breast posterior depth with questioned distortion without sonographic correlate. Recommend stereotactic core needle biopsy at this time for confirmation. The findings and recommendations were discussed with the patient the procedure will be scheduled. ASSESSMENT: BI-RADS BI-RADS 4 - Suspicious finding RECOMMENDATION: Biopsy recommended Results were provided to the patient at time of visit by the technologist. This patient's information was entered into a reminder system with a target due date for their next mammogram. Electronically signed by: Cara Rodriges DO 02/23/2025 01:06 PM EDT
--- OUTSIDE RECORDS SUMMARY | 2025-02-23 13:48 | XMS_ITS | Encounter Summary ---
Author Organization [employer] Address 75 [facility] 7t [place] [address] Care Team Providers Care Second Language Tutor Name Role Phone Shereen Latham MD Primary Care Provider Nupur Bullock PharmD Unavailable Sury Benitez Unavailable [phone] Nirali Madrid OD Unavailable Li Grande MD Unavailable [phone] Anselmo Gates MD Unavailable Margaret Holman Unavailable Herberth Stokes MD Unavailable [phone] Hilton Palacios MD Unavailable [phone] Reason for Referral * Consultation (Routine) - Closed Specialty Diagnoses / Procedures Referred By Walter nelson Referred To Contact Obstetrics and Gynecology Diagnoses Women's annual routine gynecological examination Stacey Khan MD 230 [place] [address] Phone: tel: fax: [facility] Women? s Services [address] 5[address] Floor [address] (Main Hospital Entrance) [place], [place] Phone: tel: fax: Referral ID Status Reason Start Date Expiration Date V isits Requested Visits Authorized [id number] Closed Specialty Services Required 01/19/2025 01/19/2026 9 9 Encounter Details Date Type Department Care Team (Late st Contact Info) Description 01/19/2025 Orders Only [facility] MEDICINE 230 [place] [address] Stacey Khan MD 230 [place], [place] [phone] Women's annual routine gynecological examination (Primary Dx) [...] Care Team (Late st Contact Info) Description 03/02/2025 11:15 AM EDT Office Visit [facility] MEDICINE [address] [place] [address] Shereen Latham MD [address] [place] [address] 03/29/2025 2:00 PM EDT Office Visit [facility] ADULT DENTAL [address] [place] [address] Heidi, Jenny 230 [place] [address] 04/25/2025 2:30 PM EDT Medication Management [address] [address] Nupur Bullock, PharmD [address] [place] [address] 04/26/2025 9:30 AM EDT Office Visit [address] [address] Shereen Latham MD [address] [place] [address] Scheduled Referrals Name Type Priority Associated Diagnoses [...] Sensitivity Troponin I (01/19/2025 4:33 PM EDT) [facility] TROPONIN I HIGH SENSITIVITY 7.8 <3.5 - 17.0 ng/L [facility] Comment:The Henriquez high sens itivity Troponin-I results should beused in conjunction with other diagnostic information suchas ECG, clinical observations and information, and patientsymptoms to aid in the diagnosis of [place]. 01/19/2025 4:33 PM EDT 01/19/2025 4:34 PM EDT us Generic External Data Provider LAB BLOOD ORDERAB LES Final Result Performing Organization Address [facility]/ZIP Co de Phone Number [facility] [address] [place] [phone] * B Type Natriuretic Peptide (BNP) (01/19/2025 4:33 PM EDT) [facility] B Type Natriuretic Peptide 22 <100 pg/mL [facility] 01/19/2025 4:33 PM EDT 01/19/2025 4:34 PM EDT Squla External Data Provider LAB BLOOD ORDERAB LES Final Result Performing Organization Address City/[facility]/ZIP Co de Phone Number [facility] [address] [place] [phone] * D Dimer High Sensitivity (01/19/2025 4:33 PM EDT) [facility] D Dimer High Sensitivity <150 NG/ML [facility] Comment:D-DIMER HS REFERENCE RANGENote: Our [...] Provider LAB BLOOD ORDERAB LES Final Result [facility] [address] [place] [address] [phone] documented in this encounter Visit Diagnoses Diagnosis Women's annual routine gynecological examination- Primary documented in this encounter Additional Health Concerns Assessment Noted Time PHQ-9 Depression Total Score: 22 025 10:17 AM EST documented as of this encounter Care Teams Second Language Tutor Relationship Specialty Start Date End Date Shereen Latham MD 230 [place] [address] PCP - General Family Medicine 11/02/18 Nupur Bullock, CharleneD 230 [place] [address] Pharmacist Internal Medicine 08/09/24 Sury Benitez [address] [place] [address] Dr [address] [place] [address] Pulmonary Disease 09/27/24 Nirali Madrid, OD [address] [place] [address] Optometry 10/27/24 Li Grande MD [address] [place] [address] Hematology and Oncology 10/27/24 Anselmo Gates MD [address] [place] [address] Orthopaedic Surgery 10/27/24 Margaret Holman [address] 3rd [place] [address] Cardiology 10/27/24 Herberth Stokes MD [address] [facility] [address] 3rd [place] [address] Gastroenterology 10/27/24 Hilton Palacios MD [address] [facility] [address], [address] [place] [address] Neurology 02/06/25 Pily Delaney Physician Relations RepresentativeSpray Technician 07/22/24 Elie Vicky [facility] 12/29/24 documented as of this encounter
--- OUTSIDE RECORDS SUMMARY | 2025-02-23 13:48 | XMS_ITS | Encounter Summary ---
Author Organization [employer] Address [address] [facility] 7t [place] [address] Care Team Providers Care Glass Cutting Machine Operator Name Role Phone Shereen Latham MD Primary Care Provider [phone] Nupur Bullock PharmD Unavailable Sury Benitez Unavailable [phone] Nirali Madrid OD Unavailable Li Grande MD Unavailable [phone] Anselmo Gates MD Unavailable Margaret Holman Unavailable Herberth Stokes MD Unavailable [phone] Hilton Palacios MD Unavailable [phone] Encounter Details Date Type Department Care Team (Late st Contact Info) Description 05/02/2024 Orders Only [facility] MEDICINE [address] [place], [place] [phone] Shereen Latham MD [address] [place], [place] [phone] Gout, unspecified cause, unspecified chronicity, unspecified site [...] Description 03/02/2025 11:15 AM EDT Office Visit [facility] MEDICINE [address] [place] [address] Shereen Latham MD [address] [place] [address] 03/29/2025 2:00 PM EDT Office Visit [facility] ADULT DENTAL [address] [place] [address] Jeramie Gordonaris [address] [place] [address] 04/25/2025 2:30 PM EDT Medication Management [facility] MEDICINE [address] [place] [address] Nupur Bullock, PharmD [address] [place] [address] 04/26/2025 9:30 AM EDT Office Visit [facility] MEDICINE [address] [place] [address] Shereen Latham MD [address] [place] [address] documented as of this encounter Visit Diagnoses Diagnosis Gout, unspecified cause, unspecified chronicity, unspecified site- Primary documented in this encounter Additional Health Concerns Assessment Noted Time PHQ-9 Depression Total Score: 23 024 1:45 PM EDT documented as of this encounter Care Teams Glass Cutting Machine Operator Relationship Specialty Start Date End Date Shereen Latham MD [address] [place] [address] PCP - General Family Medicine 11/02/18 Nupur Bullock, ChraleneD [address] [place] [address] Pharmacist Internal Medicine 08/09/24 Sury Benitez [address] [place] [address] [place] [address] Pulmonary Disease 09/27/24 Nirali Madrid OD [address] [place] [address] Optometry 10/27/24 Li Grande MD [address] [place] [address] Hematology and Oncology 10/27/24 Anselmo Gates MD [address] [place] [address] Orthopaedic Surgery 10/27/[address] 3rd [place] [address] Cardiology 10/27/24 Herberth Stokes MD [address] [place] [address] Gastroenterology 10/27/24 Hilton Palacios MD [address] [facility], [address] [place] [address] Neurology 02/06/25 Pily Delaney Ribbon WeaverHeel Coverer Machine Operator 07/22/24 Elie Vicky [facility] 12/29/24 documented as of this encounter
--- OUTSIDE RECORDS SUMMARY | 2025-02-23 13:48 | XMS_ITS | Encounter Summary ---
Author Organization [employer] Address [address] [facility] 7t [place] [address] Care Team Providers Care Data Abstractor Name Role Phone Shereen Latham MD Primary Care Provider [phone] Nupur Bullock PharmD Unavailable Sury Benitez Unavailable [phone] Nirali Madrid OD Unavailable Li Grande MD Unavailable [phone] Anselmo Gates MD Unavailable Margaret Holman Unavailable Herberth Stokes MD Unavailable [phone] Hilton Palacios MD Unavailable [phone] Reason for Visit * Reason Onset Date Comments Nurse Triage 05/25/2024 Encounter Details Date Type Department Care Team (Late st Contact Info) Description 05/25/2024 Telephone [facility] MEDICINE [address] [place], [place] [phone] Shereen Latham MD [address] [place], [place] [phone] Nurse Triage Social History Tobacco Use Types [...] . Pt reports Pt was seen in [facility] 05/11/24 for continued leftfoot pain and Pt was seen by acid dipper, Leta Lunsford MD 05/11/24 also (report is on the chart). Pt had been advised to stop BP med chlorthalidone per acid dipper [facility] because that particular medication is known to [...] anxiety. Pt is advised to come to [facility] today , open till 8pm, to [...] Description 03/02/2025 11:15 AM EDT Office Visit [facility] MEDICINE [address] [place] [address] Shereen Latham MD [address] [place] [address] 03/29/2025 2:00 PM EDT Office Visit [facility] ADULT DENTAL [address] [place] [address] Heidi, Jenny [address] [place] [address] 04/25/2025 2:30 PM EDT Medication Management [facility] MEDICINE [address] [place] [address] Nupur Bullock PharmD [address] [place] [address] 04/26/2025 9:30 AM EDT Office Visit [address] [address] Shereen Latham MD [address] [place] [address] documented as of this encounter Visit Diagnoses Not on filedocumented in this encounter Additional Health Concerns Assessment Noted Time PHQ-9 Depression Total Score: 22 024 9:12 AM EDT documented as of this encounter Care Teams Data Abstractor Relationship Specialty Start Date End Date Shereen Latham MD [address] [place] [address] PCP - General Family Medicine 11/02/18 Nupur Bullock, PharmD [address] [place] [address] Pharmacist Internal Medicine 08/09/24 Sury Benitez [address] [place] [address] [place] [facility] [place] [address] Pulmonary Disease 09/27/24 Nirali Madrid OD [address] [place] [address] Optometry 10/27/24 Li Grande MD [address] [place] [address] Hematology and Oncology 10/27/24 Anselmo Gates MD [address] [facility] [address] [place] [address] Orthopaedic Surgery 10/27/24 Margaret Holman [address] [facility] 3rd [place] [address] Cardiology 10/27/24 Herberth Stokes MD [address] [facility] 3rd [place] [address] Gastroenterology 10/27/24 Hilton Palacios MD [address] [facility], [address] [place] [address] Neurology 02/06/25 Pily Delaney [employer] Good[employer] TesterWorkforce Management Consultant 07/22/24 Elie Vicky [facility] 12/29/24 documented as of this encounter
--- OUTSIDE RECORDS SUMMARY | 2025-02-23 13:48 | XMS_ITS | Encounter Summary ---
Author Organization [employer] Address [address] [facility] 7t [place] [address] Care Team Providers Care Furnace Cooler Name Role Phone Shereen Latham MD Primary Care Provider [phone] Nupur Bullock PharmD Unavailable Sury Benitez Unavailable [phone] Nirali Madrid OD Unavailable Li Grande MD Unavailable [phone] Anselmo Gates MD Unavailable Margaret Holman Unavailable Herberth Stokes MD Unavailable [phone] Hilton Palacios MD Unavailable [phone] Encounter Details Date Type Department Care Team (Late st Contact Info) Description 04/26/2024 Orders Only [facility] MEDICINE [address] [place], [place] [phone] Junie Damon MD [address] [place], [place] [phone] Social History Tobacco Use Types Packs/Day Years [...] Description 03/02/2025 11:15 AM EDT Office Visit [facility] MEDICINE [address] [place] [address] Shereen Latham MD [address] [place] [address] 03/29/2025 2:00 PM EDT Office Visit [facility] ADULT DENTAL [address] [place] [address] Heidi, Jenny [address] [place] [address] 04/25/2025 2:30 PM EDT Medication Management [facility] MEDICINE [address] [place] [address] Nupur Bullock PharmD [address] [place] [address] 04/26/2025 9:30 AM EDT Office Visit [facility] MEDICINE [address] [place] [address] Shereen Latham MD [address] [place] [address] documented as of this encounter Visit Diagnoses Not on filedocumented in this encounter Additional Health Concerns Assessment Noted Time PHQ-9 Depression Total Score: 23 024 1:45 PM EDT documented as of this encounter Care Teams Furnace Cooler Relationship Specialty Start Date End Date Shereen Latham MD [address] [place] [address] PCP - General Family Medicine 11/02/18 Nupur Bullock, CharleneD [address] [place] [address] Pharmacist Internal Medicine 08/09/24 Sury Benitez [address] [place] [address] [place] [address] Pulmonary Disease 09/27/24 Nirali Madrid OD [address] [place] [address] Optometry 10/27/24 Li Grande MD [address] [place] [address] Hematology and Oncology 10/27/24 Anselmo Gates MD [address] [place] [address] Orthopaedic Surgery 10/27/24 Margaret Holman [address] 3rd [place] [address] Cardiology 10/27/24 Herberth Stokes MD [address] 3rd [place] [address] Gastroenterology 10/27/24 Hilton Palacios MD [address] [facility] [address] [place] [address] Neurology 02/06/25 Pily Delaney Oyster WorkerFreight Breaker 07/22/24 Elie BRASHER [facility] Psychology 12/29/24 documented as of this encounter
--- OUTSIDE RECORDS SUMMARY | 2025-02-23 13:48 | XMS_ITS | Encounter Summary ---
Author Organization [employer] Address [address] [facility] 7t [place] [address] Care Team Providers Care Defense Attorney Name Role Phone Shereen Latham MD Primary Care Provider Nupur Bullock PharmD Unavailable [phone] Sury Benitez Unavailable [phone] Nirali Madrid OD Unavailable Li Grande MD Unavailable [phone] Anselmo Gaets MD Unavailable Margaret Holman Unavailable Herberth Stokes MD Unavailable [phone] Hilton Palacios MD Unavailable [phone] Reason for Referral * Imaging (Routine) - Pending Review Specialty Diagnoses / Procedures Referred By Walter nelson Referred To Contact Radiology Diagnoses Breast pain, left Procedures BI Mammogram Diagnostic Tomosynthesis Left Stacey Khan MD [address] [place] [address] Phone: tel: fax: [facility] [address] [place], [place] Phone: tel: fax: Referral ID Status Reason Start Date Expiration Date V isits Requested Visits Authorized [id number] Pending Review 01/19/2025 01/19/2026 1 1 * Imaging (Routine) - Pending Review Specialty Diagnoses / Procedures Referred By Walter nelson Referred To Contact Radiology Diagnoses Breast pain, left Procedures BI US Breast Limited Left Stacey Khan MD [address] [place] [address] Phone: tel: fax: [address] Phone: tel: fax: Referral ID Status Reason Start Date Expiration Date V isits Requested Visits Authorized [id number] Pending Review 01/19/2025 01/19/2026 1 1 Encounter Details Date Type Department Care Team (Late st Contact Info) Description 01/19/2025 Orders Only [facility] [address] [place] [address] Stacey Khan MD [address], [place] [phone] Breast pain, left (Primary Dx); History of right breast cancer Social History [...] Description 03/02/2025 11:15 AM EDT Office Visit [facility] [address] [place] [address] Shereen Latham MD [address] [place] [address] 03/29/2025 2:00 PM EDT Office Visit [facility] ADULT DENTAL [address] [place] [address] Jenny Gordon [address] [place] [address] 04/25/2025 2:30 PM EDT Medication Management [facility] [address] [place] [address] Nupur Bullock PharmD [address] [place] [address] 04/26/2025 9:30 AM EDT Office Visit [facility] [address] [place] [address] Shereen Latham MD [address] [place] [address] documented as of this encounter Procedures Procedure Name Priority Date/Time Associated Diagnosis Comments BI US BREAST LIMITED LEFT Routine 02/23/2025 12:15 PM EDT Breast pain, left BI MAMMOGRAM DIAGNOSTIC TOMOSYNTHESIS LEFT Routine 02/23/2025 11:40 AM EDT Breast pain, left documented in this encounter Results * BI US Breast Limited Left (02/23/2025 12:15 PM EDT) Anatomical Region Laterality Modality Breast Left Ultrasound 02/23/2025 12:1 5 PM EDT Narrative 02/23/2025 1:08 PM EDT ? [facility] ? [address] ?[place] [address] ? Ultrasound Report ? Signed ? Patient: Azra Cast ?MR#: [id number] ?? [id number] ? : 1975 ?Acct:[id number] ? Age/Sex: 49 / F ?ADM Date: 02/23/25 ? Loc: HO.MAMMO ? Attending Dr: Stacey Khan MD ? Ordering Physician: Stacey Khan MD ?? Date of Service: 02/23/25 ?? Procedure(s): US breast LT limited mamm only ?? Accession Number(s): [id number] ? cc: Shereen Latham MD; Stacey Khan MD ? EXAMINATION: ?? MM DIAGNOSTIC DIGITAL BREAST TOMOSYNTHESIS, LEFT ? CLINICAL INFORMATION: ? History of right breast cancer status post mastectomy. Left breast ?? reduction and mastopexy. ? Left breast pain at 3:00. ? COMPARISON: ?? Mammography: Priors on PACS. ? TECHNIQUE: ?? Digital breast tomosynthesis is performed in both the craniocaudal and ?? mediolateral oblique views along with computer-aided detection (CAD). ?? Synthesized 2D images are generated from the tomosynthesis. ? FINDINGS: ?? There are scattered areas of fibroglandular density (ACR BI-RADS breast ?? composition Category b). ?? Campbell marker in the upper outer breast area of patient's pain ?? without underlying abnormality. ?? There is a new focal asymmetry in the central outer breast posterior ?? depth with questioned subtle distortion. ?? Post reduction mammoplasty changes are stable. ?? No suspicious calcifications or other abnormal findings. ? Targeted color Doppler ultrasound scanning in the area the patient's ?? pain and new focal asymmetry demonstrate normal fibronodular breast ?? tissue scanning from 1-5 o'clock. There is no sonographic abnormality. ? US/US breast LT limited mamm only ?? IMPRESSION: ?? 1. No mammographic or sonographic abnormality to account for the ?? patient's left breast pain. Recommend clinical evaluation and follow-up. ? 2. New focal asymmetry in the central outer breast posterior depth with ?? questioned distortion without sonographic correlate. Recommend ?? stereotactic core needle biopsy at this time for confirmation. The ?? findings and recommendations were discussed with the patient the ?? procedure will be scheduled. ? ASSESSMENT: ? BI-RADS BI-RADS 4 - Suspicious finding ? RECOMMENDATION: ?? Biopsy recommended ? Results were provided to the patient at time of visit by the ?? technologist. ? This patient's information was entered into a reminder system with a ?? target due date for their next mammogram. ? Electronically signed by: ??Cara Rodriges DO ??02/23/2025 01:06 PM EDT ?? RP ? Dictated By: ?Cara Rodriges DO ? Signed By: ?<Electronically signed by Cara Rodriges, DO in OV> ? 02/23/25 1306 ? DD/ 1215 ? TD/TT: 02/23/25 1237 ? Engineering Faculty Member: ? Procedure Note Sumi, Image - 02/23/2025 [facility] [address] [place] [address] Ultrasound Report Signed Patient: Maged Cast#: [id number] : 1975Acct:[id number] Age/Sex: 49 / FADM Date: 02/23/25 Loc: HO.MAMMO Attending Dr: Stacey Khan MD Ordering Physician: Stacey Khan MD Date of Service: 02/23/25 Procedure(s): US breast LT limited mamm only Accession Number(s): [id number] cc: Shereen Latham MD; Stacey Khan MD EXAMINATION: MM DIAGNOSTIC DIGITAL BREAST TOMOSYNTHESIS, LEFT CLINICAL INFORMATION: History of right breast cancer status post mastectomy. Left breast reduction and mastopexy. Left breast pain at 3:00. COMPARISON: Mammography: Priors on PACS. TECHNIQUE: Digital breast tomosynthesis is performed in both the craniocaudal and mediolateral oblique views along with computer-aided detection (CAD). Synthesized 2D images are generated from the tomosynthesis. FINDINGS: There are scattered areas of fibroglandular density (ACR BI-RADS breast composition Category b). Campbell marker in the upper outer breast area of patient's pain without underlying abnormality. There is a new focal asymmetry in the central outer breast posterior depth with questioned subtle distortion. Post reduction mammoplasty changes are stable. No suspicious calcifications or other abnormal findings. Targeted color Doppler ultrasound scanning in the area the patient's pain and new focal asymmetry demonstrate normal fibronodular breast tissue scanning from 1-5 o'clock. There is no sonographic abnormality. US/US breast LT limited mamm only IMPRESSION: 1. No mammographic or sonographic abnormality to account for the patient's left breast pain. Recommend clinical evaluation and follow-up. 2. New focal asymmetry in the central outer breast posterior depth with questioned distortion without sonographic correlate. Recommend stereotactic core needle biopsy at this time for confirmation. The findings and recommendations were discussed with the patient the procedure will be scheduled. ASSESSMENT: BI-RADS BI-RADS 4 - Suspicious finding RECOMMENDATION: Biopsy recommended Results were provided to the patient at time of visit by the technologist. This patient's information was entered into a reminder system with a target due date for their next mammogram. Electronically signed by: Cara Rodriges DO 02/23/2025 01:06 PM EDT RP Dictated By: Cara Rodriges DO Signed By: <Electronically signed by Cara Rodriges DO in OV> 02/23/25 1306 DD/ 1215 TD/TT: 02/23/25 1237 Engineering Faculty Member: us Stacey Khan MD IMG US PROCEDURES Final Result * BI Mammogram Diagnostic Tomosynthesis Left (02/23/2025 11:40 AM EDT) Anatomical Region Laterality Modality Breast Left Mammography 02/23/2025 11:4 0 AM EDT Narrative 02/23/2025 1:08 PM EDT ? [facility] ? [address] ?[place] [address] ?[phone] ? Mammography Report ? Signed ? Patient: Azra Cast ?MR#: [id number] ?? [id number] ? : 1975 ?Acct:[id number] ? Age/Sex: 49 / F ?ADM Date: //25 ? Loc: HO.MAMMO ? Attending Dr: Stacey Khan MD ? Ordering Physician: Stacey Khan MD ?Results: 4Suspicio ?? us Finding ? Date of Service: /24/25 ?Follow Up: Biopsy Recommend ?? ed ? Procedure(s): MM tomosynthesis diagnostic LT ?? Accession Number(s): [id number] ? cc: Shereen Latham MD; Stacey Khan MD ? EXAMINATION: ?? MM DIAGNOSTIC DIGITAL BREAST TOMOSYNTHESIS, LEFT ? CLINICAL INFORMATION: ? History of right breast cancer status post mastectomy. Left breast ?? reduction and mastopexy. ? Left breast pain at 3:00. ? COMPARISON: ?? Mammography: Priors on PACS. ? TECHNIQUE: ?? Digital breast tomosynthesis is performed in both the craniocaudal and ?? mediolateral oblique views along with computer-aided detection (CAD). ?? Synthesized 2D images are generated from the tomosynthesis. ? FINDINGS: ?? There are scattered areas of fibroglandular density (ACR BI-RADS breast ?? composition Category b). ?? Campbell marker in the upper outer breast area of patient's pain ?? without underlying abnormality. ?? There is a new focal asymmetry in the central outer breast posterior ?? depth with questioned subtle distortion. ?? Post reduction mammoplasty changes are stable. ?? No suspicious calcifications or other abnormal findings. ? Targeted color Doppler ultrasound scanning in the area the patient's ?? pain and new focal asymmetry demonstrate normal fibronodular breast ?? tissue scanning from 1-5 o'clock. There is no sonographic abnormality. ? MM/MM tomosynthesis diagnostic LT ?? IMPRESSION: ?? 1. No mammographic or sonographic abnormality to account for the ?? patient's left breast pain. Recommend clinical evaluation and follow-up. ? 2. New focal asymmetry in the central outer breast posterior depth with ?? questioned distortion without sonographic correlate. Recommend ?? stereotactic core needle biopsy at this time for confirmation. The ?? findings and recommendations were discussed with the patient the ?? procedure will be scheduled. ? ASSESSMENT: ? BI-RADS BI-RADS 4 - Suspicious finding ? RECOMMENDATION: ?? Biopsy recommended ? Results were provided to the patient at time of visit by the ?? technologist. ? This patient's information was entered into a reminder system with a ?? target due date for their next mammogram. ? Electronically signed by: ??Cara Rodriges DO ??02/23/2025 01:06 PM EDT ?? RP ? Dictated By: ?Cara Rodriges DO ? Signed By: ?<Electronically signed by Cara Rodriges, DO in OV> ? 02/23/25 1306 ? DD/ 1140 ? TD/TT: 02/23/25 1150 ? Engineering Faculty Member: ? Procedure Note Donotuseinterpreter, Image - 02/23/2025 [facility] [address] [place] [address] Mammography Report Signed Patient: Nicolas CastR#: [id number] : 1975Acct:[id number] Age/Sex: 49 / FADM Date: 02/23/25 Loc: HO.MAMMO Attending Dr: Stacey Khan MD Ordering Physician: Stacey Khan MDResults: 4Suspicio us Finding Date of Service: 02/23/25Follow Up: Biopsy Recommend ed Procedure(s): MM tomosynthesis diagnostic LT Accession Number(s): [id number] cc: Shereen Latham MD; Stacey Khan MD EXAMINATION: MM DIAGNOSTIC DIGITAL BREAST TOMOSYNTHESIS, LEFT CLINICAL INFORMATION: History of right breast cancer status post mastectomy. Left breast reduction and mastopexy. Left breast pain at 3:00. COMPARISON: Mammography: Priors on PACS. TECHNIQUE: Digital breast tomosynthesis is performed in both the craniocaudal and mediolateral oblique views along with computer-aided detection (CAD). Synthesized 2D images are generated from the tomosynthesis. FINDINGS: There are scattered areas of fibroglandular density (ACR BI-RADS breast composition Category b). Campbell marker in the upper outer breast area of patient's pain without underlying abnormality. There is a new focal asymmetry in the central outer breast posterior depth with questioned subtle distortion. Post reduction mammoplasty changes are stable. No suspicious calcifications or other abnormal findings. Targeted color Doppler ultrasound scanning in the area the patient's pain and new focal asymmetry demonstrate normal fibronodular breast tissue scanning from 1-5 o'clock. There is no sonographic abnormality. MM/MM tomosynthesis diagnostic LT IMPRESSION: 1. No mammographic or sonographic abnormality to account for the patient's left breast pain. Recommend clinical evaluation and follow-up. 2. New focal asymmetry in the central outer breast posterior depth with questioned distortion without sonographic correlate. Recommend stereotactic core needle biopsy at this time for confirmation. The findings and recommendations were discussed with the patient the procedure will be scheduled. ASSESSMENT: BI-RADS BI-RADS 4 - Suspicious finding RECOMMENDATION: Biopsy recommended Results were provided to the patient at time of visit by the technologist. This patient's information was entered into a reminder system with a target due date for their next mammogram. Electronically signed by: Cara Rodriges DO 02/23/2025 01:06 PM EDT RP Workstation: [employer] Dictated By: Cara Rodriges DO Signed By: <Electronically signed by Cara Rodriges DO in OV> 02/23/25 1306 DD/ 1140 TD/TT: 02/23/25 1150 Engineering Faculty Member: Stacey Khan MD IMG BI PROCEDURES Final Result documented in this encounter Visit Diagnoses Diagnosis Breast pain, left- Primary History of right breast cancer documented in this encounter Additional Health Concerns Assessment Noted Time PHQ-9 Depression Total Score: 22 025 10:17 AM EST documented as of this encounter Care Teams Defense Attorney Relationship Specialty Start Date End Date Shereen Latham MD [address] [place] [address] PCP - General Family Medicine 11/02/18 Nupur Bullock PharmD [address] [place] [address] Pharmacist Internal Medicine 08/09/24 Sury Benitez [address] [place] [address] Pulmonary Disease 09/27/24 Nirali Madrid OD [address] [place] [address] Optometry 10/27/24 Li Grande MD [address] [place] [address] Hematology and Oncology 10/27/24 Anselmo Gates MD [address] [facility] [address] [place] [address] Orthopaedic Surgery 10/27/24 Margaret Holman 11 [facility] 3rd [place] [address] Cardiology 10/27/24 Herberth Stokes MD 11 [facility] 3rd [place] [address] Gastroenterology 10/27/24 Hilton Palacios MD 15 [facility], [address] [place] [address] Neurology 02/06/25 Pily Delaney Joist SetterTax Services Specialist 07/22/24 Elie Vicky [facility] 12/29/24 documented as of this encounter
--- OUTSIDE RECORDS SUMMARY | 2025-02-23 13:49 | XMS_ITS | Encounter Summary ---
Author Organization [employer] Address [address] [facility] 7t [place] [address] Care Team Providers Care Wood Handler Name Role Phone Shereen Latham MD Primary Care Provider [phone] Nupur Bullock PharmD Unavailable Sury Benitez Unavailable [phone] Nirali Madrid OD Unavailable Li Grande MD Unavailable [phone] Anselmo Gates MD Unavailable Margaret Holman Unavailable Herberth Stokes MD Unavailable [phone] Hilton Palacios MD Unavailable Reason for Visit * Reason Comments Med Refill Encounter Details Date Type Department Care Team (Late st Contact Info) Description 06/21/2024 Refill [facility] [address] [place], [place] [phone] Shereen Latham MD [address] [place] [address] Mild intermittent asthma, unspecified whether complicated; Pain [...] Description 03/02/2025 11:15 AM EDT Office Visit [facility] [address] [place] [address] Shereen Latham MD [address] [place] [address] 03/29/2025 2:00 PM EDT Office Visit [facility]ULT [facility] [address] [place] [address] Heidi, Jenny [address] [place] [address] 04/25/2025 2:30 PM EDT Medication Management [facility] [address] [place] [address] Nupur Bullock PharmD [address] [place] [address] 04/26/2025 9:30 AM EDT Office Visit [facility] [address] [place] [address] Shereen Latham MD [address] [place] [address] documented as of this encounter Visit Diagnoses Diagnosis Mild intermittent asthma, unspecified whether complicated Pain Generalized pain documented in this encounter Additional Health Concerns Assessment Noted Time PHQ-9 Depression Total Score: 13 024 4:53 PM EDT documented as of this encounter Care Teams Wood Handler Relationship Specialty Start Date End Date Shereen Latham MD [address] [place] [address] PCP - General Family Medicine 11/02/18 Nupur Bullock PharmD [address] [place] [address] Pharmacist Internal Medicine 08/09/24 Sury Benitez [address] [place] [address] [address] [place] [address] Pulmonary Disease 09/27/24 JuliusNirali quigley OD [address] [place] [address] Optometry 10/27/24 Li Grande MD [address] [place] [address] Hematology and Oncology 10/27/24 Anselmo Gates MD [address] [place] [address] Orthopaedic Surgery 10/27/24 Margaret Holman [address] 3rd [place] [address] Cardiology 10/27/24 Herberth Stokes MD 11 [facility] 3rd [place] [address] Gastroenterology 10/27/24 Hilton Palacios MD 15 [facility], [address] [place] [address] Neurology 02/06/25 Pily Delaney Can StackerDigital Photographic Printer 07/22/24 Elie Vicky [facility] 12/29/24 documented as of this encounter
--- OUTSIDE RECORDS SUMMARY | 2025-02-23 13:49 | XMS_ITS | Clinical Summary ---
Author Organization [employer] it Address [address] [place] [address] Care Team Providers Care Home Health Care Case Manager Name Role Phone Shereen Latham MD Primary Care Provider [phone] Social History Tobacco Use Types Packs/Day Years [...] age to complete this topic Care Teams Home Health Care Case Manager Relationship Specialty Start Date End Date Shereen Latham MD [address] [place] [phone] PCP - General 01/13/1996
--- OUTSIDE RECORDS SUMMARY | 2025-02-23 13:49 | XMS_ITS | Encounter Summary ---
Author Organization [employer] Address [address] [facility] 7t [place] [address] Care Team Providers Care Tube Wrapper Name Role Phone Shereen Latham MD Primary Care Provider [phone] Nupur Bullock PharmD Unavailable Sury Benitez Unavailable [phone] Nirali Madrid OD Unavailable Li Grande MD Unavailable [phone] Anselmo Gates MD Unavailable Margaret Holman Unavailable Herberth Stokes MD Unavailable [phone] Hilton Palacios MD Unavailable Reason for Visit * Reason Onset Date Comments chartprep 02/23/2025 Encounter Details Date Type Department Care Team (Late st Contact Info) Description 02/23/2025 Telephone [facility] [address] [place], [place] [phone] Shereen Latham MD [address] [place], [place] [phone] chartprep Social History Tobacco Use Types Packs/Day [...] Telephone Encounter - Racheal Miner [place] - 02/23/2025 1:41 PM EDT ..Chart Prep Labs: done Images: not applicable Vaccines due: Shingles in pharmacy Due Referrals: Not Applicable Screenings: Not Applicable Overdue care gaps: Sbirt, Disability , and Oral Health Health Care Proxy 07/05/2024 documented in this encounter Plan of Treatment Upcoming Encounters Date Type Department Care Team (Late st Contact Info) Description 03/02/2025 11:15 AM EDT Office Visit [facility] [address] [place] [address] Shereen Latham MD [address] [place] [address] 03/29/2025 2:00 PM EDT Office Visit [facility] ADULT D[facility]AL [address] [place] [address] Jenny Gordon [address] [place] [address] 04/25/2025 2:30 PM EDT Medication Management [facility] [address] [place] [address] Nupur Bullock PharmD [address] [place] [address] 04/26/2025 9:30 AM EDT Office Visit [address] [address] Shereen Latham MD [address] [place] [address] documented as of this encounter Visit Diagnoses Not on filedocumented in this encounter Additional Health Concerns Assessment Noted Time PHQ-9 Depression Total Score: 22 025 10:17 AM EST documented as of this encounter Care Teams Tube Wrapper Relationship Specialty Start Date End Date Shereen Latham MD [address] [place] [address] PCP - General Family Medicine 11/02/18 Nupur Bullock, PharmD [address] [place] [address] Pharmacist Internal Medicine 08/09/24 Sury Benitez 10 [facility] [address] [place] [address] Pulmonary Disease 09/27/24 Nirali Madrid OD [address] [place] [address] Optometry 10/27/24 Li Grande MD [address] [place] [address] Hematology and Oncology 10/27/24 Anselmo Gates MD 10 [facility] [address] [place] [address] Orthopaedic Surgery 10/27/24 Margaret Holman 11 [facility] 3rd [place] [address] Cardiology 10/27/24 Herberth Stokes MD 11 [facility] 3rd [place] [address] Gastroenterology 10/27/24 Hilton Palacios MD 15 [facility], [address] [place] [address] Neurology 02/06/25 Pily Delaney [employer] MakerMedical And Health Services Manager 07/22/24 Elie BRASHER [facility] Psychology 12/29/24 documented as of this encounter
--- OUTSIDE RECORDS SUMMARY | 2025-02-23 13:49 | XMS_ITS | Clinical Summary ---
Author Organization [employer] Address [address] [facility] [address] [place] [address] Care Team Providers Care Rn Baby Name Role Phone Shereen Latham MD Primary Care Provider [phone] Nupur Bullock PharmD Unavailable Sury Benitez Unavailable [phone] Nirali Madrid OD Unavailable Li Grande MD Unavailable [phone] Anselmo Gatse MD Unavailable Margaret Holman Unavailable Herberth Stokes MD Unavailable [phone] Hilton Palacios MD Unavailable Allergies Active [...] FOR PAIN OR FOR FEVER 60 tablet 02/16/20 25 Active Acetaminophen Extra Strength 500 MG tabletIndicatio ns:Pain TAKE 1 TABLET BY MOUTH EVERY 6 TO 8 HOURS NEEDED FOR PAIN OR FOR FEVER 60 tablet 01/18/20 25 025 Discontinued(R eorder (will not trigger [...] 04/21/24 with uric acid 7.9 -Seen by director of rehabilitation and wellness Dr. Bernstein 05/11/24 or evaluation of acute gout affecting left foot. -Pt admitted 07/25/24-07/2524 for swelling, pain, and warmth in the right knee. Patient had a low fever (100.3 F) and elevated WBC (61307 cells/uL), CRP, and ESR. Orthopedic surgery consulted [...] reach serum uric acid level <6 mg/dL(2020 [place] [employer] guideline for the management [...] 04/21/24 with uric acid 7.9 -Seen by director of rehabilitation and wellness Dr. Bernstein 05/11/24 or evaluation of acute gout affecting left foot. -Pt admitted 07/25/24-07/2524 for swelling, pain, and warmth in the right knee. Patient had a low fever (100.3 F) and elevated WBC (29175 cells/uL), CRP, and ESR. Orthopedic surgery consulted [...] reach serum uric acid level <6 mg/dL(2020 [place] [employer] guideline for the management [...] reach serum uric acid level <6 mg/dL(2020 [place] [employer] guideline for the management [...] ON 08/24/2024 9:45 AM BY JOLIE PA [facility] [place] [place] (07/25/2024 - 07/27/2024) Patient presented with swelling, pain, and warmth in the right knee. Patient had a low fever (100.3 F) and elevated WBC (60232 cells/uL), CRP, and ESR. Orthopedic surgery consulted [...] by mouth once daily for 5 days. [facility] [place] [place] ED (08/07/2024) Patient presented for right knee [...] of breath) 06/29/2024 Overview (12/29/2024): -Followed by [facility] Pulmonology with Sury Benitez NP -02/2024 [...] Plan (12/29/2024 11:03 AM EST): -Followed by [facility] with Sury Benitez NP -02/2024 [...] if needed. -pt reports she saw her director of income tax and is continuing management with them. . Assessment & Plan (07/13/2024 2:15 PM EDT): -referred to pulmonology 06/29/24 -Pt reports she has appt to see director of income tax 08/01/24 Assessment & Plan (06/29/2024 4:49 PM [...] failure with reduced EF during admission to [facility] 06/22/24. - She was started on [...] effusion and indeterminate diastolic function -Seen by [facility]iology 08/01/24 : exercise nuclear stress [...] with reduced EF during recent admission to [facility] 06/22/24. Pt was volume overloaded therefore [...] with reduced EF during recent admission to [facility] 06/22/24. Pt was volume overloaded therefore treated with IV Lasix, Aldactone and losartan. - an echocardiogram was obtained that showed EF 55-60%, small loculated pericardial effusion and indeterminate diastolic function -patient responded to Lasix, BNP improved from 472 to 105, was followed closely by Cardiology in-patient -referred to Collaborative Drug Therapy Managment Program with our PharmD, KALA for medication management 06/29/24 -referred to Cardiology [...] failure with reduced EF during admission to [facility] 06/22/24. - She was started on [...] effusion and indeterminate diastolic function -Seen by [facility] 08/01/24 : exercise nuclear stress [...] failure with reduced EF during admission to [facility] 06/22/24. - She was started on [...] effusion and indeterminate diastolic function -Seen by [facility] 08/01/24 : exercise nuclear stress [...] Complex care coordination 01/11/2024 Overview (01/11/2024): -Has [employer] services with [facility] -Leonora is applying [facility] 01/11/2024 -In our complex care management program -referred to [facility] on 01/04/2024 -Messaged sent to foster care therapist for assistance in care visits Assessment & Plan (12/29/2024 10:21 AM EST): -Has [employer] services with [facility] -Leonora is applying [employer] [facility] 01/11/2024 -In our complex care management program -referred to [facility] on 01/04/2024 -Messaged sent to foster care therapist for assistance in care visits Assessment & Plan (08/24/2024 9:19 AM EDT): -Has [employer] services with [facility] -Leonora is applying [facility] 01/11/2024 -In our complex care management program -referred to [facility] on 01/04/2024 -Messaged sent to [facility] foster care therapist for assistance in care visits Assessment & Plan (06/29/2024 4:06 PM EDT): -Has [employer] services with [facility] -Leonora is applying [facility] 01/11/2024 -In our complex care management program -referred to [facility] on 01/04/2024 -Messaged sent to foster care therapist for assistance in care visits Assessment & Plan (01/11/2024 9:30 AM EDT): -Has [employer] services with [facility] -She is applying [facility] 01/11/2024 -In our [facility] complex care management program -referred to [facility] on 01/04/2024 -Messaged sent to [facility] foster care therapist for assistance in care visits Generalized anxiety [...] Pain Management team and will reconnect with [facility]. Information given to patient. PLAN: (check all that apply) Behavioral Health Integration Plan Self- referred to [facility] per patient's preference. Assessment & Plan (11/24/2023 11:53 AM EST): STEFANY-7 Total Score: 21 (10/22/2023 10:44 AM) New/Additional Services needed Off-site services for , Behavioral Health Integration Plan External OP therapy referral , Patient Self Plan Patient to utilize skills provided in intervention , Patient to reach out to [facility] team as needed, and Patient to engage in OP therapy Provided patient with support in scheduling an Intake appt with [facility]. Tubular adenoma of colon 09/07/2023 Overview [...] for transfusion - Iron infusions ordered by Rn Disease Management DR. Grande - She recieved two sessions [...] for transfusion - Iron infusions ordered by Rn Disease Management DR. Grande - She recieved two sessions [...] for transfusion - Iron infusions ordered by Rn Disease Management DR. Grande - She recieved two sessions [...] for transfusion - Iron infusions ordered by Rn Disease Management DR. Grande - She recieved two sessions [...] due after 06/29/25 -eye care facilitated by [facility] -dental home is [facility] -health care proxy filed 06/29/24 Assessment & Plan (06/29/2024 4:03 PM EDT): -next physical exam due after 06/29/25 -eye care facilitated by [facility] -dental home is [facility] -health care proxy given and filed 06/29/24 [...] on scene within 10 minutes, transfer completed [facility] [place] [place] ER called with expect Chronic GERD 05/26/2023 [...] had ultrasound sound for abdominal pain at [facility] revealing diffusely echogenic parenchyma with focal sparing [...] had ultrasound sound for abdominal pain at [facility] revealing diffusely echogenic parenchyma with focal sparing [...] had ultrasound sound for abdominal pain at [facility] revealing diffusely echogenic parenchyma with focal sparing [...] had ultrasound sound for abdominal pain at [facility] revealing diffusely echogenic parenchyma with focal sparing [...] had ultrasound sound for abdominal pain at [facility] revealing diffusely echogenic parenchyma with focal sparing [...] had ultrasound sound for [place] [facility]ound showed diffusely echogenic parenchyma with focal [...] been referred [facility] but has [...] subsequently declined -Admitted for alcohol detox at [facility] 04/09/24 -reports she is currently not [...] been referred to [facility] but has [...] subsequently declined -Admitted for alcohol detox at [facility] 04/09/24 -reports she is currently not [...] been referred to [facility] but has [...] subsequently declined -Admitted for alcohol detox at [facility] 04/09/24 -reports she is currently not [...] received phenobarb improved her symptoms, patient declined work and family life consultant help to place her in rehab, is [...] received phenobarb improved her symptoms, patient declined work and family life consultant help to place her in rehab, is [...] History of right breast cancer 12/12/2021 Overview (02/23/2025): 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 -S/[facility] started Oct, completed [...] -Has appt for mammogram in December 2024. -LEFT mammogram and US 02/23/25 IMPRESSION: No mammographic or sonographic abnormality to account for the patient's left breast pain. Recommend clinical evaluation and follow-up. New focal asymmetry in the central outer breast posterior depth with questioned distortion without sonographic correlate. Recommend stereotactic core needle biopsy at this time for confirmation. The findings and recommendations were discussed with the patient the procedure will be scheduled. 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 -S/p RIGHT mastectomy with sentinel node bx by Dr. Prescott [facility] -Adriamycin/Cytoxan based chemotherapy started Oct, completed [...] type, invasive tumor 2.2 cm ER positive, NH positive, HER-2/RON negative, two sentinel nodes negative. -S/p RIGHT [facility] started Oct, completed [...] type, invasive tumor 2.2 cm ER positive, NH positive, HER-2/RON negative, two sentinel nodes negative. -S/p RIGHT [facility] with [facility] started Oct, completed [...] type, invasive tumor 2.2 cm ER positive, NH positive, HER-2/RON negative, two sentinel nodes negative. -S/p RIGHT mastectomy with sentinel node bx by Dr. [facility]at [facility] -Adriamycin/Cytoxan based chemotherapy started Oct, completed [...] type, invasive tumor 2.2 cm ER positive, NH positive, HER-2/RON negative, two sentinel nodes negative. -S/p RIGHT mastectomy with sentinel node bx by Dr. Prescott [facility] -Adriamycin/Cytoxan based chemotherapy started Oct, completed [...] type, invasive tumor 2.2 cm ER positive, NH positive, HER-2/RON negative, two sentinel nodes negative. -S/p RIGHT mastectomy with sentinel node bx by Dr. [facility] -Adriamycin/Cytoxan based chemotherapy started Oct, completed [...] type, invasive tumor 2.2 cm ER positive, NH positive, HER-2/RON negative, two sentinel nodes negative. -S/[facility]toxan [facility] started Oct, completed 4 [...] type, invasive tumor 2.2 cm ER positive, NH positive, HER-2/RON negative, two sentinel nodes negative. -S/p RIGHT [facility]Cytoxan based chemotherapy started Oct, completed 4 [...] type, invasive tumor 2.2 cm ER positive, NH positive, HER-2/RON negative, two sentinel nodes negative. -S/p RIGHT [facility] with [facility]an [facility] chemotherapy started Oct, completed [...] Overview (06/28/2024): Lab Results Component Value Date [id number] 58.3 06/16/2024 [id number] 106.4 01/04/2024 [id number] 76.8 09/22/2023 Assessment & Plan (06/29/2024 3:39 PM EDT): Lab Results Component Value Date [id number] 58.3 06/16/2024 [id number] 106.4 01/04/2024 [id number] 76.8 09/22/2023 Assessment & Plan (12/14/2023 12:09 PM EST): Lab Results Component Value Date [id number] 76.8 09/22/2023 -Labs ordered for further evaluation: Vitmain D, 25-hydroxy, Total, Immunoassay. 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 Per Dr. Krish Loomis's note from [facility] CONSULTING PRACTICE DIRECTOR, pt was due for repeat colposcopy in [...] CIN2-3. Per Dr. Krish Loomis's note from [facility] CONSULTING PRACTICE DIRECTOR, pt was due for repeat colposcopy in [...] CIN2-3. Per Dr. Krish Loomis's note from [facility] CONSULTING PRACTICE DIRECTOR, pt was due for repeat colposcopy in [...] CIN2-3. Per Dr. Krish Loomis's note from [facility] CONSULTING PRACTICE DIRECTOR, pt was due for repeat colposcopy in [...] Health Integration Plan Internal Follow up with [facility] Patient Self Plan Patient to utilize skills provided in intervention , Patient to reach out to [facility] team as needed, Patient to reach out to [facility] as needed, and will contact [facility] Intake number to connect with fpc OP services, and psychiatrist. Rule Out Diagnoses: [...] as pharmacomtherapy, [facility] smoking cessation group, and [facility] pharmacy smoking cessation clinic Discussed [...] as pharmacomtherapy, [facility] smoking cessation group, and [facility] pharmacy smoking cessation clinic Discussed [...] as pharmacomtherapy, [facility] smoking cessation group, and [facility] pharmacy smoking cessation clinic Discussed [...] as pharmacomtherapy, [facility] smoking cessation group, and [facility] pharmacy smoking cessation clinic Discussed [...] as pharmacomtherapy, [facility] smoking cessation group, and [facility] pharmacy smoking cessation clinic Discussed [...] flare 05/11/2024 12/29/2024 Overview (07/13/2024): Seen by director of rehabilitation and wellness Dr. Bernstein 05/11/24 or evaluation of acute [...] Plan (07/13/2024 2:21 PM EDT): Seen by director of rehabilitation and wellness Dr. Bernstein 05/11/24 or evaluation of acute [...] EDT): Patient requesting a Physical for her [employer] hours to be re-instated. On exam today, her vitals are stable and her exam seems unchanged from previous one. Work up in progress for her c/o bilateral foot pain Hospital discharge follow-up 06/18/2023 07/20/2023 Assessment & Plan (07/14/2023 10:23 AM EDT): Patient here for a HDF. She was admitted to [facility] [place] [place] from 06/05-06/08 . She presented with concerns [...] Hyperaldosteronism 11/16/2022 3 Overview (11/16/2022): Seen by [facility] 04/03/2022. Initially seen 12/2021 for hyperaldosteronism. Labs [facility] [place] [place] 10/2021 aldosterone 8, plasma renin 0.11, aldosterone/renin 72.7. She was likely on spironolactone and lisinopril at time of labs. Advise no spironolactone for 6 weeks and recheck renin aldosterone levels with renal panel and magnesium in fun house operator. Assessment & Plan (11/16/2022 10:55 AM EST): Seen by [facility] 04/03/2022. Initially seen 12/2021 for hyperaldosteronism. Labs [facility] [place] [place] 10/2021 aldosterone 8, plasma renin 0.11, aldosterone/renin 72.7. She was likely on spironolactone and lisinopril at time of labs. Advise no spironolactone for 6 weeks and recheck renin aldosterone levels with renal panel and magnesium in fun house operator. Anxiety 04/19/2014 01/28/2024 Encounters Date Type Department Care Team Description 02/23/2025 Telephone [facility] MEDICINE [address] [place] [phone] Shereen Latham MD chartprep 02/15/2025 Refill [facility] CHC MED & PEDS [address] [place] [address] Shereen Latham MD Pain 02/13/[address] [address] Shereen Latham MD Nurse Triage 01/27/2025 Orders Only [address] [address] Shereen Latham MD History of right breast cancer (Primary Dx) 01/27/2025 Orders Only [address] [address] Shereen Latham MD Hypomagnesemia (Primary Dx) 01/24/2025 1:00 PM EDT Clinical Support [facility] DIABETES/NUTRITIO N [address] [place] [phone] History of chronic CHF (Primary Dx) 01/24/[address] [address] Shereen Latham MD Medication Question 01/24/2025 Travel 01/19/2025 Orders Only [address] [address] Stacey Khan MD Women's annual routine gynecological examination (Primary Dx) 01/19/2025 Orders Only [address] [address] Stacey Khan MD Breast pain, left (Primary Dx); History of right breast cancer 01/17/2025 3:00 PM EDT Nutrition [facility] DIABETES/NUTRITIO N [address] [place] [phone] History of chronic CHF 01/17/2025 Refill [facility] CH[facility] MED & PEDS [address] [place] [address] Shereen Latham MD Pain 01/17/2025 Travel 01/17/2025 Refill [facility] CH[facility] MED & PEDS [address] [place] [address] Mayda Rush MD Pain 01/16/[address] [address] Shereen Latham MD Appointment Request 01/13/2025 Population Health Risk Score Community [facility] (C[facility]) Department [address] [phone] Provider, Population Health Generic 01/12/2025 Refill [facility] MED & PEDS [address] [place] [address] Shereen Latham MD Benign essential hypertension 01/09/2025 Refill [facility] MEDICINE [address] [place] [address] Shereen Latham MD Gastroesophageal reflux disease, unspecified whether esophagitis present; Vitamin D deficiency; Nasal congestion 01/03/[address] [address] Shereen Latham MD Referral 12/29/2024 10:30 AM EST Office Visit [address] [address] Shereen Latham MD History of right breast [...] coordination; Tubular adenoma of colon 12/29/2024 Telephone [facility] MEDICINE [address] [place] [address] Shereen Latham MD Results 12/29/2024 Orders Only [facility] MEDICINE [address] [place] [address] Shereen Latham MD Gout, unspecified cause, unspecified chronicity, unspecified site 12/29/2024 Orders Only GENERIC EXTERNAL DATA DEPARTMENT Provider, Generic External Data 12/29/2024 Travel 12/22/[address] [address] Shereen Latham MD Durable Medical Equipment; chartprep 12/22/[address] [address] Shereen Latham MD Nurse Triage 12/21/2024 3:30 PM EST Telemedicine [address] [address] Nupur Bullock, CharleneD Preventative health care (Primary Dx) 12/21/2024 Travel 12/21/2024 Refill [facility] CHC MED & PEDS [address] [place] [address] Shereen Latham MD Pain 12/20/2024 Orders Only [facility] External Provider, [facility] 12/14/2024 Travel 12/12/2024 Patient Outreach [address] [address] Shereen Latham MD Transition Of Care (Tcm) 12/10/2024 Orders Only GENERIC EXTERNAL DATA DEPARTMENT Provider, Generic External Data 12/09/[address] [address] Shereen Latham MD Nurse Triage 12/07/[address] [address] Shereen Latham MD ER Follow-up 12/06/2024 Orders Only GENERIC EXTERNAL DATA DEPARTMENT Provider, Generic External Data 12/03/2024 Travel 11/25/2024 Orders Only [address] [address] Shereen Latham MD Vaginal lesion (Primary Dx) from Last 3 Months Immunizations [...] 03/02/2025 11:15 AM EDT Office Visit [facility] MEDICINE [address] [place] [address] Shereen Latham MD [address] [place] [phone] 03/29/2025 2:00 PM EDT Office Visit [facility] ADULT DENTAL [address] [place] [phone] Jenny Gordon [address] [place] [address] 04/25/2025 2:30 PM EDT Medication Management [facility] MEDICINE [address] [place] [address] Nupur Bullock, Pushpa [address] [place] [phone] 04/26/2025 9:30 AM EDT Office Visit [facility] MEDICINE [address] [place], [place] [phone] Shereen Latham MD [address] [place] [address] Health Maintenance Due Date Last Done Comments [...] 02/23/2025 11:40 AM EDT Breast pain, left MAGNESIUM Routine 02/07/2025 9:49 AM EDT Hypomagnesemia [...] Recently Relevant to Health Maintenance Results * BI US Breast Limited Left (02/23/2025 12:15 PM EDT) Anatomical Region Laterality Modality Breast Left Ultrasound 02/23/2025 12:1 5 PM EDT Narrative 02/23/2025 1:08 PM EDT ? [facility] [place] ? [address] ?[place] [address] ? Ultrasound Report ? Signed ? Patient: Cast,Azra ?MR#: [id number] ?? [id number] ? : 1975 ?Acct:[id number] ? Age/Sex: 49 / F ?ADM Date: 04/24/25 ? Loc: HO.MAMMO ? Attending Dr: Stacey Khan MD ? Ordering Physician: Stacey Khan MD ?? Date of Service: 02/23/25 ?? Procedure(s): US breast LT limited mamm only ?? Accession Number(s): [id number] ? cc: Shereen Latham MD; Stacey Khan [...] BI-RADS breast ?? composition Category b). ?? [place] marker in the upper outer breast area [...] ? Signed By: ?<Electronically signed by Cara Rodriges DO in OV> ? 02/23/25 1306 ? DD/ 1215 ? TD/TT: 02/23/25 1237 ? Chief Engineer Production: ? Procedure Note Donellyinterpreter, Image - 02/23/2025 Mariela [facility] [address] [place] [address] Ultrasound Report Signed Patient: Maged Cast#: [id number] : 1975Acct:[id number] Age/Sex: 49 / FADM Date: 02/23/25 Loc: HO.MAMMO Attending Dr: Stacey Khan MD Ordering Physician: Stacey Khan MD Date of Service: 02/23/25 Procedure(s): breast LT limited mamm only Accession Number(s): [id number] cc: Shereen Latham MD; Stacey Khan MD [...] density (ACR BI-RADS breast composition Category b). [place] marker in the upper outer breast area [...] 02/23/25 1306 DD/ 1215 TD/TT: 02/23/25 1237 Chief Engineer Production: us Stacey Khan MD IMG US PROCEDURES Final Result * BI Mammogram Diagnostic Tomosynthesis Left (02/23/2025 11:40 AM EDT) Anatomical Region Laterality Modality Breast Left Mammography 02/23/2025 11:4 0 AM EDT Narrative 02/23/2025 1:08 PM EDT ? [facility] [place] ? [address] [address] ?[phone] ? Mammography Report ? Signed ? Patient: Cast,Azra ?MR#: [id number] ?? [id number] ? : 1975 ?Acct:[id number] ? Age/Sex: 49 / F ?ADM Date: 04/24/25 ? Loc: HO.MAMMO ? Attending Dr: Stacey Khan MD ? Ordering Physician: Stacey Khan MD ?Results: 4Suspicio ?? us Finding ? Date of Service: 02/23/25 ?Follow Up: Biopsy Recommend ?? ed ? Procedure(s): MM tomosynthesis diagnostic LT ?? Accession Number(s): [id number] ? cc: Shereen Latham MD; Stacey Khan [...] BI-RADS breast ?? composition Category b). ?? [place] marker in the upper outer breast area [...] Signed By: ?<Electronically signed by Cara Rodriges, in OV> ? 02/23/25 1306 ? DD/ 1140 ? TD/TT: 02/23/25 1150 ? Chief Engineer Production: ? Procedure Note Sumi, Image - 02/23/2025 [place] [facility] [address] [place], [place] [address] Mammography Report Signed Patient: Maged Cast#: [id number] : 1975Acct:[id number] Age/Sex: 49 / FADM Date: 02/23/25 Loc: ALBERTO Attending Dr: Stacey Khan MD Ordering Physician: Stacey Khan MDResults: 4Suspicio us Finding Date of Service: 02/23/25Follow Up: Biopsy Recommend ed Procedure(s): MM tomosynthesis diagnostic LT Accession Number(s): [id number] cc: Shereen Latham MD; Stacey Khan MD [...] density (ACR BI-RADS breast composition Category b). [place] marker in the upper outer breast area [...] Cara Rodriges DO 02/23/2025 01:06 PM EDT Dictated By: Cara Rodriges DO Signed By: <Electronically signed by Cara Rodriges DO in OV> 02/23/25 1306 DD/ 1140 TD/TT: 02/23/25 1150 Chief Engineer Production: us Stacey Khan MD IM BI PROCEDURES Final Result * Magnesium (02/07/2025 9:49 AM EDT) Only the most recent of3 resultswithin the time period is included. Magnesium 1.7 1.6 - 2.6 mg/dL [facility] Blood Venous blood specimen / Unknown 02/07/2025 9:49 AM EDT 02/07/2025 11:07 AM EDT us Shereen Latham MD LAB BLOOD ORDERABLES Final Result Performing Organization Address [facility] Co de Phone Number [facility] [address] [place] [phone] * D Dimer High Sensitivity (01/19/2025 4:33 PM EDT) [facility] D Dimer High Sensitivity <150 NG/ML [facility] Comment:D-DIMER HS REFERENCE RANGENote: [...] ORDERAB LES Final Result Performing Organization Address [facility] de Phone Number [facility] [address] [place] [phone] * High Sensitivity Troponin I (01/19/2025 4:33 PM EDT) Only the most recent of2 resultswithin the time period is included. Pathologist [facility] [place] TROPONIN I HIGH SENSITIVITY 7.8 <3.5 - 17.0 ng/L [facility] Comment:The Henriquez high sens itivity Troponin-I results should beused in conjunction with other diagnostic information suchas ECG, clinical observations and information, and patientsymptoms to aid in the diagnosis of [place]. 01/19/2025 4:33 PM EDT 01/19/2025 4:34 PM EDT us Generic External Data Provider LAB BLOOD ORDERAB LES Final Result Performing Organization Address [facility]/ZIP Co de Phone Number [facility] [address] [place] [address] [phone] * B Type Natriuretic Peptide (BNP) (01/19/2025 4:33 PM EDT) Only the most recent of2 resultswithin the time period is included. [facility] B Type Natriuretic Peptide 22 <100 pg/mL [facility] 01/19/2025 4:33 PM EDT 01/19/2025 4:34 PM EDT us Generic External Data Provider LAB BLOOD ORDERAB LES Final Result Performing Organization Address [facility] Co de Phone Number [facility] [address] [place] [phone] * (ABNORMAL) CBC auto differential (12/29/2024 10:53 AM EST) Only the most recent of3 resultswithin the time period is included. [facility] White Blood Count 13.5(H) 4.8 - 10.8 X10*3/uL [facility] Red Blood Count 3.97(L) 4.20 - 5.50 X10*6/uL [facility] Hemoglobin 11.4(L) 12.0 - 16.0 g/dl [facility] Hematocrit 36.4(L) 37.0 - 47.0 % [facility] Mean Corpuscular Volume 91.7 80.0 - 98.0 fL [facility] Mean Corpuscular Hemoglobin 28.7 27.0 - 33.0 pg [facility] Mean Corpuscular HGB Conc 31.3 31.0 - 35.0 g/dl [facility] Red Cell Distribution Width 14.8 11.0 - 16.0 % [facility] Platelet Count 370 160 - 400 X10*3/uL [facility] Mean Platelet Volume 10.2 9.4 - 12.3 fL [facility] Neutrophils Percent Auto 70.1 45 - 73 % [facility] Imm Gran Pct Auto 1.8(H) 0.0 - 0.4 % [facility] Lymphocytes Percent Auto 18.9(L) 20 - 40 % [facility] Monocytes Percent Auto 7.8 2 - 11 % [facility] Eosinophils Percent Auto 0.7 0 - 4 % [facility] Basophils Percent Auto 0.7 0 - 2 % [facility] NRBC Pct Auto 0.0 0.0 - 0.2 /100WBC [facility] Neutrophils Absolute Auto 9.5(H) 2.0 - 8.3 x10*3/uL [facility] Imm Gran Abs Auto 0.25(H) 0.00 - 0.03 X10*3/uL [facility] Lymphocytes Absolute Auto 2.6 1.2 - 4.9 X10*3/uL [facility] Monocytes Absolute Auto 1.1 0.1 - 1.2 X10*3/uL [facility] Eosinophils Absolute Auto 0.1 0.0 - 0.4 X10*3/uL [facility] Basophils Absolute Auto 0.1 0.0 - 0.2 X10*3/uL [facility] NRBC Abs Auto 0.000 0.0 - 0.012 X10*3/uL [facility] 12/29/2024 10:5 3 AM EST 12/29/2024 1:06 PM EST us Generic External Data Provider LAB BLOOD ORDERAB LES Final Result [facility] [address] [place] [phone] * (ABNORMAL) Uric acid (12/29/2024 10:53 AM EST) Uric Acid 5.8(H) 2.4 - 5.7 mg/dL [facility] Blood Venous blood specimen / Unknown 12/29/2024 10:53 AM EST 12/29/2024 1:06 PM EST us Shereen Latham MD LAB BLOOD ORDERABLES Final Result Performing Organization Address [facility] Co de Phone Number [facility] [address] [place] [address] [phone] * (ABNORMAL) Lipid Panel, Standard (12/29/2024 10:53 AM EST) Triglycerides 192(H) <150 mg/dL [facility] Comment:Desirable Triglyceri de: less than 150 mg/dLBorderline High Triglyceride 150-199 mg/dLHigh Triglyceride: 200-499 mg/dLVery High Triglyceride: greater than or equal to 5OO mg/dL Cholesterol 197 <200 mg/dL [facility] Comment:Desirable Cholestero l: less than 200 mg/dLBorderline High Cholesterol: 200-239 mg/dLHigh Cholesterol: greater than 239 mg/dL LDL Cholesterol Calculated 111(H) <100 mg/dL [facility] Comment:Desirable LDL: less than 100 mg/dLNear Optimal/Above Optimal LDL: 110- 129 mg/dLBorderline High LDL: 130-159 mg/dLHigh LDL: 160-189 mg/dLVery High LDL: greater than or equal to 190 mg/dL HDL Cholesterol 48 >40 mg/dL [facility] Comment:Desirable HDL: great er than 40 mg/dL Note: This HDL assay may give artificially low results in patients with liver disease. Blood Venous blood specimen / Unknown 12/29/2024 10:53 AM EST 12/29/2024 1:06 PM EST Shereen Latham MD LAB BLOOD ORDERABLES Final Result Performing Organization Address [facility]/ZIP Co de Phone Number [facility] [address] [place] [phone] * (ABNORMAL) Basic Metabolic Panel (12/29/2024 10:53 AM EST) Sodium 139 135 - 145 mmol/L [facility] Potassium 4.1 3.3 - 5.1 mmol/L [facility] Chloride 105 96 - 108 mmol/L [facility] Carbon Dioxide 23 22 - 29 mmol/L [facility] Anion Gap 15 12 - 20 [facility] Urea Nitrogen (BUN) 32(H) 9 - 16 mg/dL [facility] Creatinine, Serum 0.91 0.5 - 1.4 mg/dL [facility] Estimated Glomerular Filt Rate >60 [facility] Comment:Chronic Kidney Disea se: Estimated GFR < 60 mL/min/1.71h1Ynvgho Kidney Disease: Estimated GFR < 15 mL/min/1.73m2 Glucose 161(H) 60 - 115 mg/dL [facility] Calcium 9.3 8.4 - 10.2 mg/dL [facility] Blood Venous blood specimen / Unknown 12/29/2024 10:53 AM EST 12/29/2024 1:06 PM EST Shereen Latham MD LAB BLOOD ORDERABLES Final Result Performing Organization Address City/State/[facility] Co de Phone Number [facility] [address] [place] [address] [phone] * XR Knee 1-2 Views Right (12/20/2024 7:45 AM EST) Anatomical Region Laterality Modality Lower Extremities, Knee Right Radiogra phic Imaging 12/20/2024 7:45 AM EST Narrative 12/20/2024 8:20 AM EST ? [facility] ?[address] ?[place] [address] ?XRay Report ? Signed ? Patient: Cast,Azra ?MR#: [id number] ?? 3774 ? : 1975 ?Acct:[id number] ? Age/Sex: 49 / F ?ADM Date: 02/18/25 ? Loc: HO.ED ? Attending Dr: ? Ordering Physician: Sciangelitauto,Boby MD ?? Date of Service: 12/20/24 ?? Procedure(s): XR knee RT 2V ?? Accession Number(s): [id number] ? cc: Shereen Latham MD; Boby Dykes [...] DD/ 0745 ? TD/TT: 12/20/24 0751 ? Chief Engineer Production: ? Procedure Note Sumi, Image - 12/20/2024 [place] [address] XRay Report Signed Patient: Maged Cast#: [id number] : 1975Acct:[id number] Age/Sex: 49 / FADM Date: 12/20/24 Loc: HO.ED Attending Dr: Ordering Physician: Boby Dykes MD Date of Service: 12/20/24 Procedure(s): XR knee RT 2V Accession Number(s): [id number] cc: Shereen Latham MD; Boby Dykes MD [...] 12/20/24 0817 DD/ 0745 TD/TT: 12/20/24 0751 Chief Engineer Production: [facility] External Provider IMG XR PROCEDURES Edited Result - Final * XR Chest 1 View (12/11/2024 12:34 AM EST) Anatomical Region Laterality Modality Chest Radiographic Celina ging 12/11/2024 12:3 4 AM EST Narrative 12/11/2024 12:37 AM EST ? [facility] ?[address] ?[place] [address] ?XRay Report ? Signed ? Patient: Azra Cast ?MR#: [id number] ?? 3774 ? : 1975 ?Acct:[id number] ? Age/Sex: 49 / F ?ADM Date: 12/10/24 ? Loc: HO.ED ? Attending Dr: ? Ordering Physician: Sury Bustamante MD ?? Date of Service: 12/10/24 ?? Procedure(s): XR chest 1V ?? Accession Number(s): [id number] ? cc: Shereen Latham MD; Sury Bustamante MD ? CLINICAL HISTORY: chest pain cough ? 1 view chest x-ray ? Comparison: CR/NH - XR CHEST 2V - 12/30/24 17:50 [...] ? DD/ ? TD/TT: 02/09/25 0034 ? Chief Engineer Production: ? Procedure Note Donmauro, Image - 12/11/[address] [address] XRay Report Signed Patient: Maged Cast#: [id number] : 1975Acct:[id number] Age/Sex: 49 / FADM Date: 12/10/24 Loc: HO.ED Attending Dr: Ordering Physician: Sury Bustamante MD Date of Service: 12/10/24 Procedure(s): XR chest 1V Accession Number(s): [id number] cc: Shereen Latham MD; Sury Bustamante MD CLINICAL HISTORY: chest pain cough 1 view chest x-ray Comparison: CR/NH - XR CHEST 2V - 10/31/24 17:50 EST Findings: No consolidation or effusion. Heart size is normal. No acute fracture. Right breast implant. IMPRESSION: 1. No acute cardiopulmonary findings. This document has been electronically signed by: Ashley Vazquez MD on 12/11/2024 00:34:57 Dictated By: Ashley Vazquez MD Signed By: <Electronically signed by Ashley Vazquez MD in OV> 12/11/246 DD/ TD/TT: 12/11/2433 Chief Engineer Production: [facility] External Provider IMG XR PROCEDURES Final Result * SARS-CoV-2 RNA, Influenza A/B, and RSV RNA, Ql NAAT (12/10/2024 11:48 PM EST) Only the most recent of2 resultswithin the time period is included. Influenza A PCR NEGATIVE Negative [facility] Influenza B PCR NEGATIVE Negative [facility] Resp Syncy Virus RNA Qual PCR NEGATIVE Negative [facility] SARS COV2 PCR NEGATIVE Negative [facility] Comment:All test results mus [...] use by authorized laboratories.Testing performed on the [employer] GeneXpert utilizingreal-time RT-PCR.All SARS CoV2 and positive influenza A/B results arereported to [facility]. 12/10/2024 11:4 8 PM EST 12/10/2024 11:53 PM EST us Generic External Data Provider LAB MICROBIOLOGY - GENERAL ORDERABLES Final Result [facility] [address] [place] [address] [phone] * (ABNORMAL) Comprehensive Metabolic Panel (12/10/2024 11:48 PM EST) Only the most recent of2 resultswithin the time period is included. Sodium 143 135 - 145 mmol/L [facility] Potassium 3.7 3.3 - 5.1 mmol/L [facility] Chloride 108 96 - 108 mmol/L [facility] Carbon Dioxide 23 22 - 29 mmol/L [facility] Anion Gap 16 12 - 20 [facility] Urea Nitrogen (BUN) 24(H) 9 - 16 mg/dL [facility] Creatinine, Serum 1.11 0.5 - 1.4 mg/dL [facility] Creatinine Clr Calc Pharmacy 69.3 [facility] Comment:Provided height and weight: 170.18 cm,90.7 kg.eGFR (calculated from the MDRD study equation) and eCrCl(calculated from the Cockcroft-Gault equation) are based ondifferent parameters and may not yield comparable results.If eCrCl result is absurd, please check patient'sheight/weight. Estimated Glomerular Filt Rate 52 [facility] Comment:Chronic Kidney Disea se: Estimated GFR < 60 mL/min/1.69y0Wthwyr Kidney Disease: Estimated GFR < 15 mL/min/1.73m2 Glucose 150(H) 60 - 115 mg/dL [facility] Calcium 9.3 8.4 - 10.2 mg/dL [facility] Bilirubin, Total 0.2 0.0 - 1.0 mg/dL [facility] Aspartate Amino Transferase 19 5 - 31 U/L [facility] Alanine Aminotransferase 14 0 - 31 U/L [facility] Total Protein 7.6 6.5 - 8.0 g/dL [facility] Albumin Level 4.0 3.5 - 5.0 g/dL [facility] Alkaline Phosphatase 87 39 - 117 U/L [facility] 12/10/2024 11:4 8 PM EST 12/10/2024 11:53 PM EST us Generic External Data Provider LAB BLOOD ORDERAB LES Final Result Performing Organization Address [facility]/State/[facility] Co de Phone Number [facility] [address] [place] [address] [phone] * CT Abdomen Pelvis w/ Contrast (12/06/2024 1:20 PM EST) Anatomical Region Laterality Modality Body, Pelvis, Abdomen Computed T omography 12/06/2024 1:20 PM EST Narrative 12/06/2024 2:00 PM EST ? [facility] ?[address] ?[place] [address] ? CT Scan Report ? Signed ? Patient: [facility] ?MR#: [id number] ?? 3774 ? : 1975 ?Acct:[id number] ? Age/Sex: 49 / F ?ADM Date: 02/04/25 ? Loc: HO.ED ? Attending Dr: ? Ordering Physician: Leighann Ordonez DO ?? Date of Service: 12/06/24 ?? Procedure(s): CT abdomen pelvis w IV con ?? Accession Number(s): [id number] ? cc: Shereen Latham MD; Leighann Ordonez DO ? Report Number: ?? [id number]: Total DLP = ??712.00 mGy-cm ?? EXAMINATION: [...] Waldemar Escobar MD in OV> ? 12/06/24 6568 ? DD/ 1320 ? TD/TT: 12/06/24 1333 ? Chief Engineer Production: ? Procedure Note Gypsy Jonas - 12/06/[address] [place] [address] [address] Scan Report Signed Patient: Maged Cast#: [id number] : 1975Acct:[id number] Age/Sex: 49 / FADM Date: 12/06/24 Loc: HO.ED Attending Dr: Ordering Physician: Leighann Ordonez DO Date of Service: 12/06/24 Procedure(s): CT abdomen pelvis w IV con Accession Number(s): [id number] cc: Shereen Latham MD; Leighann Ordonez DO Report Number: [id number]: Total DLP = 712.00 mGy-cm EXAMINATION: CT [...] 12/06/24 1358 DD/ 1320 TD/TT: 12/06/24 1333 Chief Engineer Production: [facility] External Provider IMG CT PROCEDURES Final Result * Urinalysis w/reflex microscopic (12/06/2024 11:14 AM EST) Color Urine Yellow [facility] Appearance Urine Clear [facility] PH 6.0 5.0 - 9.0 [facility] Glucose Urine UA Negative Negative mg/dL [facility] Urine Blood Negative Negative [facility] Specific [place] - Urine 1.025 1.005 - 1.025 [facility] Urine Protein Negative Neg-Trace mg/dL [facility] Urine Ketones Negative Negative mg/dL [facility] Nitrite Urine Negative Negative [facility] Leukocyte Esterase Urine Negative Negative [facility] 12/06/2024 11:1 4 AM EST 12/06/2024 11:18 AM EST Narrative [facility] - 12/06/2024 11:22 AM EST Urine, Clean Catch Generic External Data Provider LAB URINE ORDERAB LES Final Result Performing Organization Address City/[facility] Co de Phone Number [facility] [address] [place] [phone] * Lipase (12/06/2024 9:42 AM EST) Lipase 50 8 - 78 U/L [facility] 12/06/2024 9:42 AM EST 12/06/2024 9:45 AM EST Generic External Data Provider LAB BLOOD ORDERAB LES Final Result Performing Organization Address [facility]/ZIP Co de Phone Number [facility] [address] [place] [phone] * (ABNORMAL) Hm Colonoscopy (07/11/2024) Pathologist [facility] [place] Colonoscopy Abnormal( A) Normal Comment:Herberth Stokes MD ?tubular adenoma x 3 Herberth Stokes MD HEALTH MAINTENANCE Final Result * Hepatitis Panel, General (06/16/2024 8:22 AM EDT) [facility] Hepatitis A IgM Nonreactive Nonreactive [facility] Comment:IgM antibodies to VIRAMONTES V not detected; does not exclude earlyacute or recovered HAV infection. ~Hepatitis B Surface Antibody REACTIVE Nonreactive [facility] Comment:REACTIVE: > 11.99 mI U/mL Hepatitis B Core Antibody Nonreactive Nonreactive [facility] Hepatitis C Antibody Nonreactive Nonreactive [facility] Comment:Antibodies to HCV no t detected; does not exclude early acuteHCV infection. Hepatitis B Surface Ag Negative Negative [facility] Blood Venous blood specimen / Unknown 06/16/2024 8:22 AM EDT 06/16/2024 11:18 AM EDT Shereen Latham MD LAB BLOOD ORDERABLES Final Result [facility] [address] [place] [phone] * HIV-1/2 Antigen and Antibodies, Fourth Generation, with Reflexes (02/24/2024 8:47 AM EDT) [facility] HIV AB/AG Nonreactive Nonreactive [facility] Comment:HIV-1 p24 Ag and/or HIV-1/HIV-2 Ab not detected.A test result that is nonreactive does not exclude thepossibility of exposure to or infection with HIV-1 and/orHIV-2. Nonreactive results in this assay for individualswith prior exposure to HIV-1 and/or HIV-2 may be due toantigen and antibody levels that are below the limit ofdetection of this assay.The [employer] HIV Ag/Ab Combo assay result andsupplemental assay results should be interpreted inconjunction with the patient's clinical presentation,history and other laboratory results. If the results areinconsistent with clinical evidence, additional testing issuggested to confirm the result. Blood Venous blood specimen / Unknown 02/24/2024 8:47 AM EDT 02/24/2024 11:22 AM EDT [facility] LAB BLOOD ORDERABLES Final Resul t [facility] [address] [place] [phone] * (ABNORMAL) Cologuard?? colon cancer screening (08/27/2023 11:24 AM EDT) Cologuard Result Positive( A) Negative 09/05/2023 10:16 PM EDT [employer] (CLIA #:[id number]) Comment: POSITIVE TEST RESULT. A positive Cologuard [...] (Felix Mccoy al, N Engl J Med 2014;370(14):6118-6377.) Cologuard may produce a false negative or false positive result (no colorectal cancer or precancerous polyp present at colonoscopy follow up). A negative Cologuard test result does not guarantee the absence of CRC or advanced adenoma (pre-cancer). The current Cologuard screening interval is every 3 years. ([place] Cancer Society and U.S. Multi-Society Task Force). Cologuard performance data in a 10,000 patient pivotal study using colonoscopy as the reference method can be accessed at the following location: www.[employer]/results. Additional description of the Cologuard test process, warnings and precautions can be found at www.[employer].com. Stool specimen (specimen) 08/27/2023 11:24 AM EDT 08/29/2023 6:48 AM EDT Shereen Latham MD LAB MOLECULAR DIAGNOSTICS ORDERABLES Final Result [employer] (CLIA #:[id number]) [address] [place] [address], * HPV mRNA E6/E7 (08/12/2018 10:57 AM EDT) HPV mRNA E6/E7 Not Detected NOT DETECTED [facility] Comment: This test was performed using the APTIMA(R) HPV Assay ([employer] This assay detects E6/E7 viral messenger RNA (mRNA) from 14 high-risk HPV types (16,18,31,33,35,39,45,51, 52,56,58,59,66,68). For additional information please refer to: http://education.[employer]/faq/SGS859j4 (This link is being provided for informational/ educational purposes only.) The analytical performance characteristics of this assay have been determined by [employer] [place], [place]. The modifications have not been cleared or approved by the FDA. This assay has been validated pursuant to the CLIA regulations and is used for clinical purposes. Test Performed by [employer], [facility], [address] [place] [address] Dwaine Morelos M.D., Ph.D., Director of Laboratories , [facility] [id number] Please note: ??Effective 07/14/2016, HPV testing will be performed using [employer]'s APTIMA test which targets mRNA. Detecting mRNA instead of DNA, as in older methods, offers significant improvements in specificity. 08/12/2018 10:5 7 AM EDT us Shereen Latham MD HISTORICAL/NON ORDERABLE L ABS Final Result [facility] [address] from Last 3 Months or Most Recently Relevant to Health Maintenance Insurance [facility] C3 DENTAL-[facility] MEDICAID STAND ADULT * Guarantor: Azra Cast Account Type Relation to Patient Date of Phone Billing Address Personal/Family Self [address] Advance Directives Documents on File Type Date Recorded Patient Conference Interpreter Expl anation Advance Directives and Living Will 07/05/2024 11:59 AM Health Care Proxy Care Teams Rn Baby Relationship Specialty Start Date End Date Noa, MD Shereen [address] [place] [address] PCP - General Family Medicine 11/02/18 Nupur Bullock, CharleneD [address] [place] [address] Pharmacist Internal Medicine 08/09/24 Sury Benitez [address] [place] [address] [place] [address] [place] [address] Pulmonary Disease 09/27/24 Nirali Madrid OD [address] [place] [phone] Optometry 10/27/24 Li Grande MD [address] [place] [address] Hematology and Oncology 10/27/24 Anselmo Gates MD [address] [place] [address] Orthopaedic Surgery 10/27/24 Margaret Holman [address] [facility] 3rd [place] [address] Cardiology 10/27/24 Herberth Stokes MD [address] [facility] [address]rd [place] [address] Gastroenterology 10/27/24 Hilton Palacios MD [address] [place] [address], [address] [place] [address] Neurology 02/06/25 Pily Delaney Substation TechnicianCollision Estimator 07/22/24 Elie Vicky [facility] 12/29/24
--- OUTSIDE RECORDS SUMMARY | 2025-02-23 13:49 | XMS_ITS | Encounter Summary ---
Author Organization [employer] Address 75 [facility] 7t [place] [address] Care Team Providers Care Preparer Making Department Name Role Phone Shereen Latham MD Primary Care Provider [phone]- [phone] Nupur Bullock PharmD Unavailable Sury Benitez Unavailable [phone] Nirali Madrid OD Unavailable [phone] Li Grande MD Unavailable [phone] Anselmo Gates MD Unavailable Margaret Holman Unavailable Herberth Stokes MD Unavailable [phone] Hilton Palacios MD Unavailable Encounter Details Date Type Department Care Team (Late st Contact Info) Description 11/16/2022 Abstract [facility] MEDICINE 230 [place], [place] [phone] Shereen Latham MD 230 [place], [place] [phone] Social History Tobacco Use Types Packs/Day Years [...] 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 Per Dr. Krish Loomis's note from [facility] FREIGHT FORWARDER, pt was due for repeat colposcopy in [...] Problem(s): Hyperaldosteronism (CMS/HCC) (Resolved 07/29/2023) Seen by [facility]ology 04/03/2022. Initially seen 12/2021 for hyperaldosteronism. Labs [facility] 10/2021 aldosterone 8, plasma renin 0.11, aldosterone/renin 72.7. She was likely on spironolactone and lisinopril at time of labs. Advise no spironolactone for 6 weeks and recheck renin aldosterone levels with renal panel and magnesium in placing judge. 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 [...] Description 03/02/2025 11:15 AM EDT Office Visit [facility] MEDICINE [address] [place] [address] Shereen Latham MD [address] [place] [address] 03/29/2025 2:00 PM EDT Office Visit [facility] ADULT DENTAL [address] [place] [address] Heidi, Jenny [address] [place] [address] 04/25/2025 2:30 PM EDT Medication Management [facility] MEDICINE [address] [place] [address] Nupur Bullock PharmD [address] [place] [address] 04/26/2025 9:30 AM EDT Office Visit [address] [address] Shereen Latham MD [address] [place] [address] documented as of this encounter Visit Diagnoses Not on filedocumented in this encounter Care Teams Preparer Making Department Relationship Specialty Start Date End Date Shereen Latham MD [address] [place] [address] PCP - General Family Medicine 11/02/18 Nupur Bullock, PharmD [address] [place] [address]98 Pharmacist Internal Medicine 08/09/24 Sury Benitez [address] [place] [address] [place] [address] Pulmonary Disease 09/27/24 Nirali Madrid OD [address] [place] [address] Optometry 10/27/24 Li Grande MD [address] [place] [address] Hematology and Oncology 10/27/24 Anselmo Gates MD [address] [place] [address] Orthopaedic Surgery 10/27/24 Margaret Holman [address] [facility] [address] 3rd [place] [address] Cardiology 10/27/24 Herberth Stokes MD [address] [facility] [address] [place] [address] Gastroenterology 10/27/24 Hilton Palacios MD 15 [facility] [address] [place] [address] Neurology 02/06/25 Pily Delaney Hog TenderPackage Liner 07/22/24 Elie Vicky [facility] 12/29/24 documented as of this encounter
--- OUTSIDE RECORDS SUMMARY | 2025-02-23 13:49 | XMS_ITS | Encounter Summary ---
Author Organization [employer] Address 75 [facility] 7t [place] [address] Care Team Providers Care Neuroscientist Name Role Phone Shereen Latham MD Primary Care Provider Nupur Bullock PharmD Unavailable Sury Benitez Unavailable [phone] Nirali Madrid OD Unavailable [phone] Li Grande MD Unavailable [phone] Anselmo Gates MD Unavailable Margaret Holman Unavailable Herberth Stokes MD Unavailable [phone] Hilton Palacios MD Unavailable [phone] Reason for Visit * Reason Onset Date Comments ER Follow-up 12/07/2024 Encounter Details Date Type Department Care Team (Late st Contact Info) Description 12/07/2024 Telephone [facility] MEDICINE 230 [place], [place] [phone] Shereen Latham MD 230 [place], [place] [phone] ER Follow-up Social History Tobacco Use Types [...] TC placed to pt to f/u on [facility] ED visit on 12/06/2024 for right lower [...] ED visit on : Date: 12/06/24 Hospital: [facility] Seen for: Flu Patient advised will forward to team nurse for follow up documented in this encounter Plan of Treatment Upcoming Encounters Date Type Department Care Team (Late st Contact Info) Description 03/02/2025 11:15 AM EDT Office Visit [facility] MEDICINE [address] [place] [address] Shereen Latham MD [address] [place] [address] 03/29/2025 2:00 PM EDT Office Visit [facility] ADULT DENTAL [address] [place] [address] Heidi Jenny [address] [place] [address] 04/25/2025 2:30 PM EDT Medication Management [facility] MEDICINE [address] [place] [address] Nupur Bullock, PharmD [address] [place] [address] 04/26/2025 9:30 AM EDT Office Visit [address] [address] Shereen Latham MD [address] [place] [address] documented as of this encounter Visit Diagnoses Not on filedocumented in this encounter Additional Health Concerns Assessment Noted Time PHQ-9 Depression Total Score: 13 024 4:53 PM EDT documented as of this encounter Care Teams Neuroscientist Relationship Specialty Start Date End Date Shereen Latham MD 230 [place] [address] PCP - General Family Medicine 11/02/18 Nupur Bullock, CharleneD 230 [place] [address] Pharmacist Internal Medicine 08/09/24 Sury Benitez [address] [place] [address] [address] [place] [address] Pulmonary Disease 09/27/24 Nirali Madrid OD [address] [place] [address] Optometry 10/27/24 Li Grande MD [address] [place] [address] Hematology and Oncology 10/27/24 Anselmo Gates MD 10 [facility] [address] [place] [address] Orthopaedic Surgery 10/27/24 Margaret Holman 11 [facility] 3rd [place] [address] Cardiology 10/27/24 Herberth Stokes MD 11 [facility] 3rd [place] [address] Gastroenterology 10/27/24 Hilton Palacios MD [address] [place] [address], [address] [place] [address] Neurology 02/06/25 Pily Delaney Railway Switch OperatorProduction Planning Supervisor 07/22/24 Elie Vicky [facility] Psychology 12/29/24 documented as of this encounter
--- OUTSIDE RECORDS SUMMARY | 2025-02-23 13:49 | XMS_ITS | Encounter Summary ---
Author Organization [employer] Address 75 [facility] 7t [place] [address] Care Team Providers Care Cost Manager Name Role Phone Shereen Latham MD Primary Care Provider [phone] Nupur Bullock PharmD Unavailable Sury Benitez Unavailable [phone] Nirali Madrid OD Unavailable Li Grande MD Unavailable [phone] Anselmo Gates MD Unavailable Margaret Holman Unavailable Herberth Stokes MD Unavailable [phone] Hilton Palacios MD Unavailable [phone] Encounter Details Date Type Department Care Team (Late st Contact Info) Description 07/27/[address] [facility] MEDICINE 230 [place], [place] [phone] Shereen Latham MD 230 [place], [place] [phone] Hypomagnesemia Social History Tobacco Use Types Packs/Day [...] Description 03/02/2025 11:15 AM EDT Office Visit [facility] MED[facility]INE [address] [place] [address] Shereen Latham MD [address] [place] [address] 03/29/2025 2:00 PM EDT Office Visit [facility] ADULT DENTAL [address] [place] [address] Heidi, Jenny 230 [place] [address] 04/25/2025 2:30 PM EDT Medication Management [facility] [address] [place] [address] Nupur Bullock PharmD [address] [place] [address] 04/26/2025 9:30 AM EDT Office Visit [address] [address] Shereen Latham MD [address] [place] [address] documented as of this encounter Visit Diagnoses Diagnosis Hypomagnesemia Disorders of magnesium metabolism documented in this encounter Additional Health Concerns Assessment Noted Time PHQ-9 Depression Total Score: 10 023 10:27 AM EDT documented as of this encounter Care Teams Cost Manager Relationship Specialty Start Date End Date Shereen Latham MD [address] [place] [address] PCP - General Family Medicine 11/02/18 Nupur Bullock PharmD 230 [place] [address] Pharmacist Internal Medicine 08/09/24 Sury Benitez 10 [facility] [address] [place] [address] Pulmonary Disease 09/27/24 Julius Nirali SUSAN [address] [place] [address] Optometry 10/27/24 Li Grande MD [address] [place] [address] Hematology and Oncology 10/27/24 Anselmo Gates MD 10 [facility] [address] [place] [address] Orthopaedic Surgery 10/27/24 Margaret Holman [address] [facility] 3rd [place] [address] Cardiology 10/27/24 Herberth Stokes MD 11 [facility] 3rd [place] [address] Gastroenterology 10/27/24 Hilton Palacios MD 15 [facility], [address] [place] [address] Neurology 02/06/25 Pily Delaney Employee Development ManagerCaul Fat Puller 07/22/24 Elie Vicky [facility] Psychology 12/29/24 documented as of this encounter
--- OUTSIDE RECORDS SUMMARY | 2025-02-23 13:49 | XMS_ITS | Encounter Summary ---
Author Organization [employer] Address 75 [facility] 7t [place] [address] Care Team Providers Care Instruction Assistant Principal Name Role Phone Shereen Lathma MD Primary Care Provider [phone] Nupur Bullock PharmD Unavailable [phone] Sury Benitez Unavailable [phone] Nirali Madrid OD Unavailable Li Grande MD Unavailable [phone] Anselmo Gates MD Unavailable Margaret Holman Unavailable Herberth Stokes MD Unavailable [phone] Hilton Palacios MD Unavailable [phone] Reason for Visit * Reason Onset Date Comments Medication Question 08/25/2024 Encounter Details Date Type Department Care Team (Late st Contact Info) Description 08/25/2024 Telephone [facility] MEDICINE 230 [place], [place] [phone] Shereen Latham MD 230 [place], [place] [phone] Medication Question Social History Tobacco Use Types [...] any questions you can contact pt at [phone]. documented in this encounter Plan of Treatment Upcoming Encounters Date Type Department Care Team (Late st Contact Info) Description 03/02/2025 11:15 AM EDT Office Visit [facility] MEDICINE [address] [place] [address] Shereen Latham MD 230 [place] [address] 03/29/2025 2:00 PM EDT Office Visit [facility] ADULT DENTAL [address] [place] [address] Heidi, Jenny 230 [place] [address] 04/25/2025 2:30 PM EDT Medication Management [facility] MEDICINE [address] [place] [address] Nupur Bullock PharmD [address] [place] [address] 04/26/2025 9:30 AM EDT Office Visit [facility] MEDICINE [address] [place] [address] Shereen Latham MD [address] [place] [address] documented as of this encounter Visit Diagnoses Not on filedocumented in this encounter Additional Health Concerns Assessment Noted Time PHQ-9 Depression Total Score: 13 024 4:53 PM EDT documented as of this encounter Care Teams Instruction Assistant Principal Relationship Specialty Start Date End Date Shereen Latham MD [address] [place] [address] PCP - General Family Medicine 11/02/18 Nupur Bullock, PharmD [address] [place] [address] Pharmacist Internal Medicine 08/09/24 Sury Benitez 10 [facility] [address] [place] [address] Pulmonary Disease 09/27/24 Nirali Madrid OD 267 [place] [address] Optometry 10/27/24 Li Grande MD [address] [place] [address] Hematology and Oncology 10/27/24 Anselmo Gates MD [address] [place] [address] Orthopaedic Surgery 10/27/24 Margaret Holman [address] 3rd [place] [address] Cardiology 10/27/24 Herberth Stokes MD 11 [facility] 3rd [place] [address] Gastroenterology 10/27/24 Hilton Palacios MD 15 [facility], [address] [place] [address] Neurology 02/06/25 Pily Delaney Web Developer ProgrammerProgram Aide 07/22/24 Elie Vicky [facility] 12/29/24 documented as of this encounter
--- OUTSIDE RECORDS SUMMARY | 2025-02-23 13:49 | XMS_ITS | Encounter Summary ---
Author Organization [employer] Address 75 [facility] 7t [place] [address] Care Team Providers Care Stone Layout Marker Name Role Phone Shereen Latham MD Primary Care Provider [phone] Nupur Bullock PharmD Unavailable Sury Benitez Unavailable [phone] Nirali Madrid OD Unavailable [phone] Li Grande MD Unavailable [phone] Anselmo Gates MD Unavailable Margaret Holman Unavailable Herberth Stokes MD Unavailable [phone] Hilton Palacios MD Unavailable Reason for Visit * Reason Comments Med Refill Encounter Details Date Type Department Care Team (Late st Contact Info) Description 01/17/2025 Refill [facility] [address] [place], [place] [phone] Shereen Latham MD 230 [place], [place] [phone] Pain Social History Tobacco Use Types Packs/Day [...] Description 03/02/2025 11:15 AM EDT Office Visit [facility] MEDICINE 230 [place] [address] Shereen Latham MD 230 [place] [address] 03/29/2025 2:00 PM EDT Office Visit [facility] ADULT DENTAL [address] [place] [address] Jeramie Gordonaris 230 [place] [address] 04/25/2025 2:30 PM EDT Medication Management [facility] MEDICINE [address] [place] [address] Nupur Bullock, PharmD [address] [place] [address] 04/26/2025 9:30 AM EDT Office Visit [facility] MEDICINE [address] [place] [address] Shereen Latham MD [address] [place] [address] documented as of this encounter Visit Diagnoses Diagnosis Pain Generalized pain documented in this encounter Additional Health Concerns Assessment Noted Time PHQ-9 Depression Total Score: 22 025 10:17 AM EST documented as of this encounter Care Teams Stone Layout Marker Relationship Specialty Start Date End Date Shereen Latham MD [address] [place] [address] PCP - General Family Medicine 11/02/18 Nupur Bullock, CharleneD [address] [place] [address] Pharmacist Internal Medicine 08/09/24 Sury Benitez [address] [place] [address] [place] [address] Pulmonary Disease 09/27/24 Nirali Madrid OD [address] [place] [address] Optometry 10/27/24 Li Garnde MD [address] [place] [address] Hematology and Oncology 10/27/24 Anselmo Gates MD [address] [place] [address] Orthopaedic Surgery 10/27/24 Margaret Holman [address] [facility] [address] 3rd [place] [address] Cardiology 10/27/24 Herberth Stokes MD [address] [facility] [address] [place] [address] Gastroenterology 10/27/24 Hilton Palacios MD 15 [facility], [address] [place] [address] Neurology 02/06/25 Pily Delaney Drywall Finisher ForemanConcrete Craftsman 07/22/24 Elie Vicky [facility] 12/29/24 documented as of this encounter
--- OUTSIDE RECORDS SUMMARY | 2025-02-23 13:49 | XMS_ITS | Encounter Summary ---
Author Organization [employer] Address 75 [facility] 7t [place] [address] Care Team Providers Care Strategy Manager Name Role Phone Shereen Latham MD Primary Care Provider [phone] Nupur Bullock PharmD Unavailable Sury Benitez Unavailable [phone] Nirali Madrid OD Unavailable Li Grande MD Unavailable [phone] Anselmo Gates MD Unavailable Margaret Holman Unavailable Herberth Stokes MD Unavailable [phone] Hilton Palacios MD Unavailable Encounter Details Date Type Department Care Team (Latest Contact Info) Description 08/16/[address] [facility] CONVERSIONS Dental, Provider, DDS Social History [...] Description 03/02/2025 11:15 AM EDT Office Visit [facility] MEDICINE [address] [place] [address] Shereen Latham MD 230 [place] [address] 03/29/2025 2:00 PM EDT Office Visit [facility] ADULT DENTAL [address] [place] [address] Heidi, Jenny 230 [place] [address] 04/25/2025 2:30 PM EDT Medication Management [facility] MEDICINE [address] [place] [address] Nupur Bullock PharmBrooklyn [address] [address] 04/26/2025 9:30 AM EDT Office Visit [address] [address] Shereen Latham MD [address] [place] [address] documented as of this encounter Visit Diagnoses Not on filedocumented in this encounter Care Teams Strategy Manager Relationship Specialty Start Date End Date Shereen Latham MD [address] [place] [address] PCP - General Family Medicine 11/02/18 Nupur Bullock, CharleneD [address] [place] [address] Pharmacist Internal Medicine 08/09/24 Sury Benitez [address] [place] [address] [place] [address] Pulmonary Disease 09/27/24 Nirali Madrid OD [address] [place] [address] Optometry 10/27/24 Li Grande MD 575 [place] [address] Hematology and Oncology 10/27/24 Anselmo Gates MD [address] [place] [address] Orthopaedic Surgery 10/27/24 Margaret Holman [address] 3rd [place] [address] Cardiology 10/27/24 Herberth Stokes MD 11 [facility] 3rd [place] [address] Gastroenterology 10/27/24 Hilton Palacios MD 15 [facility], [address] [place] [address] Neurology 02/06/25 Pily Delaney Client AdministratorManager Pet 07/22/24 Elie Vicky [facility] 12/29/24 documented as of this encounter
--- OUTSIDE RECORDS SUMMARY | 2025-02-23 13:49 | XMS_ITS | Encounter Summary ---
Author Organization [employer] Address 75 [facility] 7t [place] [address] Care Team Providers Care Wearing Apparel Presser Name Role Phone Shereen Latham MD Primary Care Provider [phone] Nupur Bullock PharmD Unavailable Sury Benitez Unavailable [phone] Nirali Madrid OD Unavailable Li Grande MD Unavailable [phone] Anselmo Gates MD Unavailable Margaret Holman Unavailable Herberth Stokes MD Unavailable [phone] Hilton Palacios MD Unavailable Reason for Visit * Reason Onset Date Comments Medication Question 07/05/2024 Encounter Details Date Type Department Care Team (Late st Contact Info) Description 07/05/2024 Telephone [facility] MEDICINE 230 [place], [place] [phone] Shereen Latham MD 230 [place], [place] [phone] Medication Question Social History Tobacco Use Types [...] is no medication interaction. Contact pt at [phone] documented in this encounter Plan of Treatment Upcoming Encounters Date Type Department Care Team (Late st Contact Info) Description 03/02/2025 11:15 AM EDT Office Visit [facility] MEDICINE [address] [place] [address] Shereen Latham MD [address] [place] [address] 03/29/2025 2:00 PM EDT Office Visit [facility] ADULT DENTAL [address] [place] [address] Jenny Gordon 230 [place] [address] 04/25/2025 2:30 PM EDT Medication Management [facility] MEDICINE [address] [place] [address] Nupur Bullock, PharmD [address] [place] [address] 04/26/2025 9:30 AM EDT Office Visit [facility] MEDICINE [address] [place] [address] Shereen Latham MD [address] [place] [address] documented as of this encounter Visit Diagnoses Diagnosis Pain Generalized pain documented in this encounter Additional Health Concerns Assessment Noted Time PHQ-9 Depression Total Score: 13 024 4:53 PM EDT documented as of this encounter Care Teams Wearing Apparel Presser Relationship Specialty Start Date End Date Shereen Latham MD 230 [place] [address] PCP - General Family Medicine 11/02/18 Nupur Bullock, CharleneD 230 [place] [address] Pharmacist Internal Medicine 08/09/24 Sury Benitez [address] [place] [address] [address] [place] [address] Pulmonary Disease 09/27/24 Nirali Madrid OD [address] [place] [address] Optometry 10/27/24 Li Grande MD [address] [place] [address] Hematology and Oncology 10/27/24 Anselmo Gates MD 10 [facility] [address] [place] [address] Orthopaedic Surgery 10/27/24 Margaret Holman 11 [facility] 3rd [place] [address] Cardiology 10/27/24 Herberth Stokes MD 11 [facility] 3rd [place] [address] Gastroenterology 10/27/24 Hilton Palacios MD [address] [place] [address], [address] [place] [address] Neurology 02/06/25 Pily Delaney Materials Research EngineerWetland Scientist 07/22/24 Elie BRASHER [facility] Psychology 12/29/24 documented as of this encounter
--- OUTSIDE RECORDS SUMMARY | 2025-02-23 13:49 | XMS_ITS | Encounter Summary ---
Author Organization [employer] Address 75 [facility] 7t [place] [address] Care Team Providers Care Helicopter Utility Aircrewman Name Role Phone Shereen Latham MD Primary Care Provider [phone] Nupur Bullock PharmD Unavailable Sury Benitez Unavailable [phone] Nirali Madrid OD Unavailable [phone] Li Grande MD Unavailable [phone] Anselmo Gates MD Unavailable Margaret Holman Unavailable Herberth Stokes MD Unavailable [phone] Hilton Palacios MD Unavailable Encounter Details Date Type Department Care Team (Late st Contact Info) Description 10/22/2023 Orders Only [facility] 230 [place] [address] Shereen Latham MD 230 [place], [place] [phone] Vitamin D deficiency Social History Tobacco Use [...] Description 03/02/2025 11:15 AM EDT Office Visit [facility] [address] [place] [address] Shereen Latham MD 230 [place] [address] 03/29/2025 2:00 PM EDT Office Visit [facility] [address] [place] [address] [phone] Jenny Gordon 230 [place] [address] 04/25/2025 2:30 PM EDT Medication Management [facility] [address] [place] [address] Nupur Bullock PharmD 230 [place] [address] 04/26/2025 9:30 AM EDT Office Visit [facility] 230 [place] [address] Shereen Latham MD 230 [place] [address] documented as of this encounter Visit Diagnoses Diagnosis Vitamin D deficiency documented in this encounter Additional Health Concerns Assessment Noted Time PHQ-9 Depression Total Score: 21 023 10:42 AM EST documented as of this encounter Care Teams Helicopter Utility Aircrewman Relationship Specialty Start Date End Date Shereen Latham MD 230 [place] [address] PCP - General Family Medicine 11/02/18 Nupur Bullock, CharleneD 230 [place] [address] Pharmacist Internal Medicine 08/09/24 Sury Benitez [address] [place] [address] Dr [facility] 103 [place] [address] Pulmonary Disease 09/27/24 Nirali Madrid OD [address] [place] [address] Optometry 10/27/24 Li Grande MD 575 [place] [address] Hematology and Oncology 10/27/24 Anselmo Gates MD [address] [place] [address] Orthopaedic Surgery 10/27/24 Margaret Holman [address] 3rd [place] [address] Cardiology 10/27/24 Herberth Stokes MD [address] 3rd [place] [address] Gastroenterology 10/27/24 Hilton Palacios MD [address] [place] [address], [address] [place] [address] Neurology 02/06/25 Pily Delaney Electrical Prospecting SupervisorOrthotics Assistant 07/22/24 Elie BRASHER [facility] Psychology 12/29/24 documented as of this encounter
--- OUTSIDE RECORDS SUMMARY | 2025-02-23 13:49 | XMS_ITS | Encounter Summary ---
Author Organization [employer] Address 75 [facility] 7t [place] [address] Care Team Providers Care Sourcing Manager Name Role Phone Shereen Latham MD Primary Care Provider [phone] Nupur Bullock PharmD Unavailable Sury Benitez Unavailable [phone] Nirali Madrid OD Unavailable Li Grande MD Unavailable [phone] Anselmo Gates MD Unavailable Margaret Holman Unavailable Herberth Stokes MD Unavailable [phone] Hilton Palacios MD Unavailable [phone] Reason for Visit * Reason Comments Med Refill Encounter Details Date Type Department Care Team (Late st Contact Info) Description 12/02/2022 Refill [facility] 230 [place], [place] [phone] Shereen Latham MD 230 [place], [place] [phone] Wheeze (Primary Dx); Pain Social History Tobacco [...] Description 03/02/2025 11:15 AM EDT Office Visit [facility] [address] [place] [address] Shereen Latham MD [address] [place] [address] 03/29/2025 2:00 PM EDT Office Visit [facility]ULT [facility] [address] [place] [address] Heidi, Jenny [address] [place] [address] 04/25/2025 2:30 PM EDT Medication Management [facility] [address] [place] [address] Nupur Bullock PharmD [address] [place] [address] 04/26/2025 9:30 AM EDT Office Visit [address] [address] Shereen Latham MD [address] [place] [address] documented as of this encounter Visit Diagnoses Diagnosis Wheeze- Primary Wheezing Pain Generalized pain documented in this encounter Care Teams Sourcing Manager Relationship Specialty Start Date End Date Shereen Latham MD [address] [place] [address] PCP - General Family Medicine 11/02/18 Nupur Bullock PharmD [address] [place] [address] Pharmacist Internal Medicine 08/09/24 Sury Benitez [address] [place] [address] [address] [place] [address] Pulmonary Disease 09/27/24 JuliusNirali castellnaos OD 267 [place] [address] Optometry 10/27/24 Li Grande MD [address] [place] [address] Hematology and Oncology 10/27/24 Anselmo Gates MD [address] [place] [address] Orthopaedic Surgery 10/27/24 Margaret Holman [address] 3rd [place] [address] Cardiology 10/27/24 Herberth Stokes MD 11 [facility] 3rd [place] [address] Gastroenterology 10/27/24 Hilton Palacios MD [address] [facility], [address] [place] [address] Neurology 02/06/25 Pily Delaney Upholstery EstimatorAuto Parts Clerk 07/22/24 Elie Vicky [facility] 12/29/24 documented as of this encounter
--- OUTSIDE RECORDS SUMMARY | 2025-02-23 13:49 | XMS_ITS | Encounter Summary ---
Author Organization [employer] Address 75 [facility] 7t [place] [address] Care Team Providers Care Scallop Raker Name Role Phone Shereen Latham MD Primary Care Provider [phone] Nupur Bullock PharmD Unavailable Sury Benitez Unavailable [phone] Nirali Madrid OD Unavailable Li Grande MD Unavailable [phone] Anselmo Gates MD Unavailable Margaret Holman Unavailable Herberth Stokes MD Unavailable [phone] Hilton Palacios MD Unavailable [phone] Reason for Visit * Reason Onset Date Comments Nurse Triage 02/13/2025 Encounter Details Date Type Department Care Team (Late st Contact Info) Description 02/13/2025 Telephone [facility] 230 [place], [place] [phone] Shereen Latham MD 230 [place], [place] [phone] Nurse Triage Social History Tobacco Use Types [...] Telephone Encounter - Rox Cervantes RN - 02/13/2025 12:43 PM EDT Triage call Pt reports for over 3 months now body pain/aches are present. Pt has dx of fibromyalgiaand arthritis. Pt is exhausted most of the time and is just hurting all of the time. Pt is doing more bedrest and is less active . Pt reports drinking adequate liquids. Tylenol extra strength arthritis is not effecting this pain. Pt requests to see PCP for possible referral. ASK apt 03/02/[address] Latham at 330pm. Pt agrees with disposition. Pt was offered earlier apt but, requested to see PCP only. Insurance is verified as active prior to booking. Protocol Used: Muscle Aches and Body Pain (Adult) Protocol-Based Disposition: See in Office or Video Visit within 2 Weeks Video visit not offered Positive Triage Question: * Muscle aches or body pains are a chronic symptom (recurrent or ongoing AND present > 4 weeks) * All higher-acuity triage questions were negative Care Advice Discussed: * Reassurance and Education - Mild Muscle Pain * Pain Medicines * Pain Medicines - Extra Notes and Warnings * Reasons To Call Back - Fever occurs - Pain lasts longer than 7 days - You become worse * Telephone Encounter - Cheryl Izaguirre - 02/13/2025 12:09 PM EDT Symptom: Body pain, weak ,light headed Outcome: Schedule an appointment to be seen within 3 days Reason: Caller denied all higher acuity questions The caller accepted this outcome. documented in this encounter Plan of Treatment Upcoming Encounters Date Type Department Care Team (Late st Contact Info) Description 03/02/2025 11:15 AM EDT Office Visit [facility] [address] [place] [address] Shereen Latham MD 230 [place] [address] 03/29/2025 2:00 PM EDT Office Visit [facility] ADULT DENTAL 230 [place] [address] Jenny Gordon 230 [place] [address] 04/25/2025 2:30 PM EDT Medication Management [facility] [address] [place] [address] Nupur Bullock PharmD 230 [place] [address] 04/26/2025 9:30 AM EDT Office Visit [facility] [address] [place] [address] Shereen Latham MD 230 [place] [address] documented as of this encounter Visit Diagnoses Not on filedocumented in this encounter Additional Health Concerns Assessment Noted Time PHQ-9 Depression Total Score: 22 025 10:17 AM EST documented as of this encounter Care Teams Scallop Raker Relationship Specialty Start Date End Date Shereen Latham MD 230 [place] [address] PCP - General Family Medicine 11/02/18 Nupur Bullock, PharmD 230 [place] [address] Pharmacist Internal Medicine 08/09/24 Sury Benitez [address] [place] [address] Dr [facility] 103 [place] [address] Pulmonary Disease 09/27/24 Nirali Madrid OD [address] [place] [address] Optometry 10/27/24 Li Grande MD 575 [place] [address] Hematology and Oncology 10/27/24 Anselmo Gates MD [address] [facility] [address] [place] [address] Orthopaedic Surgery 10/27/24 Margaret Holman [address] 3rd [place] [address] Cardiology 10/27/24 Herberth Stokes MD [address] 3rd Floor [place] [address] Gastroenterology 10/27/24 Hilton Palacios MD [address] [place] [address], [address] [place] [address] Neurology 02/06/25 Pily Delaney Timber HewerHelper Chicken Farm 07/22/24 Elie Vicky [facility] Psychology 12/29/24 documented as of this encounter
--- OUTSIDE RECORDS SUMMARY | 2025-02-23 13:49 | XMS_ITS | Encounter Summary ---
Author Organization [employer] Address 75 [facility] 7t [place] [address] Care Team Providers Care Clean Up Supervisor Name Role Phone Shereen Latham MD Primary Care Provider [phone] Nupur Bullock PharmD Unavailable Sury Benitez Unavailable [phone] Nirali Madrid OD Unavailable Li Grande MD Unavailable [phone] Anselmo Gates MD Unavailable Margaret Holman Unavailable Herberth Stokes MD Unavailable [phone] Hilton Palacios MD Unavailable [phone] Encounter Details Date Type Department Care Team (Latest Contact Info) Description 07/06/2019 Abstract [facility] CONVERSIONS Dental, Provider, DDS Social History [...] Upcoming Encounters Date Type Department Care Team ( st Contact Info) Description 03/02/2025 11:15 AM EDT Office Visit [facility] [address] [place] [address] Shereen Latahm MD 230 [place] [address] 03/29/2025 2:00 PM EDT Office Visit [facility] ADULT DENTAL [address] [place] [address] Heidi, Jenny 230 [place] [address] 04/25/2025 2:30 PM EDT Medication Management [facility] [address] [place] [address] Nupur Bullock PharmD [address] [place] [address] 04/26/2025 9:30 AM EDT Office Visit [address] [address] Shereen Latham MD [address] [place] [address] documented as of this encounter Visit Diagnoses Not on filedocumented in this encounter Care Teams Clean Up Supervisor Relationship Specialty Start Date End Date Shereen Latham MD [address] [place] [address] PCP - General Family Medicine 11/02/18 Nupur Bullock, PharmD [address] [place] [address] Pharmacist Internal Medicine 08/09/24 Sury Benitez [address] [place] [address] [place] [address] Pulmonary Disease 09/27/24 Nirali Madrid OD [address] [place] [address] Optometry 10/27/24 Li Grande MD 575 [place] [address] Hematology and Oncology 10/27/24 Anselmo Gates MD [address] [place] [address] Orthopaedic Surgery 10/27/24 Margaret Holman [address] 3rd [place] [address] Cardiology 10/27/24 Herberth Stokes MD [address] 3rd [place] [address] Gastroenterology 10/27/24 Hilton Palacios MD 15 [facility] [address] [place] [address] Neurology 02/06/25 Pily Delaney Contracts InternMolding Manager 07/22/24 Elie Vicky [facility] 12/29/24 documented as of this encounter
--- OUTSIDE RECORDS SUMMARY | 2025-02-23 13:49 | XMS_ITS | Encounter Summary ---
Author Organization [employer] Address 75 [facility] 7t [place] [address] Care Team Providers Care Shipfitter Helper Name Role Phone Shereen Latham MD Primary Care Provider [phone] Nupur Bullock PharmD Unavailable Sury Benitez Unavailable [phone] Nirali Madrid OD Unavailable [phone] Li Grande MD Unavailable [phone] Anselmo Gates MD Unavailable Margaret Holman Unavailable Herbetrh Stokes MD Unavailable [phone] Hilton Palacios MD Unavailable Encounter Details Date Type Department Care Team (Late st Contact Info) Description 10/11/2024 Telephone [facility] MEDICINE 230 [place], [place] [phone] Shereen Latham MD 230 [place], [place] [phone] Social History Tobacco Use Types Packs/Day Years [...] Description 03/02/2025 11:15 AM EDT Office Visit [facility] MEDICINE 230 [place] [address] Shereen Latham MD 230 [place] [address] 03/29/2025 2:00 PM EDT Office Visit [facility] ADULT DENTAL 230 [place] [address] Heidi Jenny 230 [place] [address] 04/25/2025 2:30 PM EDT Medication Management [facility] MEDICINE [address] [place] [address] Nupur Bullock, CharleneD 230 [place] [address] 04/26/2025 9:30 AM EDT Office Visit [facility] MEDICINE [address] [place] [address] Shereen Latham MD [address] [place] [address] documented as of this encounter Visit Diagnoses Not on filedocumented in this encounter Additional Health Concerns Assessment Noted Time PHQ-9 Depression Total Score: 13 024 4:53 PM EDT documented as of this encounter Care Teams Shipfitter Helper Relationship Specialty Start Date End Date Shereen Latham MD [address] [place] [address] PCP - General Family Medicine 11/02/18 Nupur Bullock, CharleneD [address] [place] [address] Pharmacist Internal Medicine 08/09/24 Sury Benitez [address] [place] [address] [place] [address] Pulmonary Disease 09/27/24 Nirali Madrid OD [address] [place] [address] Optometry 10/27/24 Li Grande MD [address] [place] [address] Hematology and Oncology 10/27/24 Anselmo Gates MD [address] [place] [address] Orthopaedic Surgery 10/27/24 Margaret Holman [address] 3rd [place] [address] Cardiology 10/27/24 Herberth Stokes MD [address] 3rd [place] [address] Gastroenterology 10/27/24 Hilton Palacios MD [address] [facility] [address] [place] [address] Neurology 02/06/25 Pily Delaney Manager Of DataBig Data Analytics Lead 07/22/24 Elie BRASHER [facility] Psychology 12/29/24 documented as of this encounter
--- OUTSIDE RECORDS SUMMARY | 2025-02-23 13:49 | XMS_ITS | Encounter Summary ---
Author Organization [employer] Address 75 [facility] 7t [place] [address] Care Team Providers Care Automotive Sales Professional Name Role Phone Shereen Latham MD Primary Care Provider [phone] Nupur Bullock PharmD Unavailable [phone] Sury Benitez Unavailable [phone] Nirali Madrid OD Unavailable Li Grande MD Unavailable [phone] Anselmo Gates MD Unavailable Margaret Holman Unavailable Herberth Stokes MD Unavailable [phone] Hilton Palacios MD Unavailable Reason for Visit * Reason Onset Date Comments Nurse Triage 01/25/2024 Referral 01/25/2024 Encounter Details Date Type Department Care Team (Late st Contact Info) Description 01/25/2024 Telephone [facility] MEDICINE 230 [place], [place] [phone] Shereen Latham MD 230 [place], [place] [phone] Nurse Triage; Referral Social History Tobacco Use [...] vary. Pt wants to be referred to [facility] [address] [facility] [address] [place] [address]. [employer] will send to team to review [...] You become worse * Telephone Encounter - Eilzabeth Castano - 01/25/2024 9:50 AM EDT Symptoms: Back Pain - Not From Injury, Body Aches Outcome: Schedule an appointment to be seen within 3 days Reason: pt stated can't walk The caller accepted this outcome documented in this encounter Plan of Treatment Upcoming Encounters Date Type Department Care Team (Late st Contact Info) Description 03/02/2025 11:15 AM EDT Office Visit [facility] MEDICINE [address] [place] [address] Shereen Latham MD 230 [place] [address] 03/29/2025 2:00 PM EDT Office Visit [facility] ADULT DENTAL [address] [place] [address] Jeramie Gordonaris 230 [place] [address] 04/25/2025 2:30 PM EDT Medication Management [facility] MED[facility]INE [address] [place] [address] Nupur Bullock PharmD 230 [place] [address] 04/26/2025 9:30 AM EDT Office Visit [facility] MEDICINE 230 [place] [address] Shereen Latham MD 230 [place] [address] documented as of this encounter Visit Diagnoses Not on filedocumented in this encounter Additional Health Concerns Assessment Noted Time PHQ-9 Depression Total Score: 21 023 10:42 AM EST documented as of this encounter Care Teams Automotive Sales Professional Relationship Specialty Start Date End Date Shereen Latham MD 230 [place] [address] PCP - General Family Medicine 11/02/18 Nupur Bullock, CharleneD [address] [place] [address] Pharmacist Internal Medicine 08/09/24 Sury Benitez [address] [place] [address] Dr [facility] 103 [place] [address] Pulmonary Disease 09/27/24 Nirali Madrid OD [address] [place] [address] Optometry 10/27/24 Li Grande MD [address] [place] [address] Hematology and Oncology 10/27/24 Anselmo Gates MD 10 [facility] [address] [place] [address] Orthopaedic Surgery 10/27/24 Margaret Holman 11 [facility] 3rd [place] [address] Cardiology 10/27/24 Herberth Stokes MD 11 [facility] 3rd [place] [address] Gastroenterology 10/27/24 Hilton aPlacios MD [address] [place] [address], [address] [place] [address] Neurology 02/06/25 Pily Delaney Cyber Crime InvestigatorPremium Card Cancellation Clerk 07/22/24 Elie BRASHER [facility] Psychology 12/29/24 documented as of this encounter
== END 2025-02-23 11:31 | disposition home or self-care (01) ==
LOC: HO.MAMMO 11:30
PROVIDERS: PCP Family Medicine; Visit Provider Family Medicine
DX: N64.4 Mastodynia (principal)
CPT/HCPCS: 76642; 77061; 77065

== ENCOUNTER → 2025-02-23 12:00 | Outpatient (BNV) | payer MEDICAID, SELFPAY | PROVIDERS: PCP Family Medicine; Visit Provider Internal Medicine | DX: N64.4 Mastodynia (principal); Z85.3 Personal history of malignant neoplasm of breast | CPT/HCPCS: 76642; 77061; 77065 ==

== ENCOUNTER 2025-02-27 14:22 | Outpatient (AMB) | payer MEDICAID, SELFPAY ==
[2025-02-27 14:33] VITALS: BP 120/82; PULSE 114; BMI 31.4
--- NOTE | 2025-02-27 14:33 | MHC.OFFVIS ---
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 Football Coach Required: No Allergies amoxicillin [AMOXICILLIN] Allergy (Intermediate, Verified 02/27/25 14:39) rash, rash/itching sulfamethoxazole [From BACTRIM] Allergy (Intermediate, Verified 02/27/25 14:39) RASH trimethoprim [From BACTRIM] Allergy (Intermediate, Verified 02/27/25 14:39) RASH hydrocodone [Hydrocodone] Allergy (Mild, Verified 02/27/25 14:39) ITCH ibuprofen [From Motrin] Allergy (Mild, Verified 02/27/25 14:39) UPSET STOMACH latex [Latex] Allergy (Mild, Verified 02/27/25 14:39) ITCH Medication List - Last Reconciled 02/27/25 by Margaret Holman NP-C acetaminophen (Tylenol Extra Strength) 500 mg PO Q6H PRN acetaminophen 500 mg PO Q6H PRN [ACL defiance brace n/a] albuterol sulfate 90 mcg/actuation 2 puffs inhalation Q4H PRN albuterol sulfate 2.5 mg (3 mL) inhalation Q4-6H PRN allopurinol 100 mg PO BID cetirizine 10 mg PO DAILY PRN cholecalciferol (vitamin D3) (Vitamin D3) 1 cap PO DAILY fluticasone propion-salmeterol 115-21 mcg/actuation (Advair HFA) 2 puffs inhalation Q12H folic acid 1 tab PO DAILY furosemide 40 mg See Protocol PO DAILY losartan 25 mg See Protocol PO BID magnesium oxide 400 mg PO BIDPC 30 days metoprolol succinate ER 25 mg PO DAILY omeprazole 1 cap PO DAILY@0630 spironolactone 12.5 mg (1/2 x 25 mg) PO QAM 90 days thiamine HCl (vitamin B1) 1 tab PO DAILY HPI HPI 1m follow up/almaraz echo: Details: Azra is a 49-year-old female with past medical history of hypertension, alcohol use, cardiomyopathy who was not seen in our office between 10/15/2021 and [place]01/2024 [place] [facility] [place] decompens[place]. She was started on appropriate med management. Her echo at that time did show normal EF. On last visit she reported chest discomfort clear stress test was done for further evaluation showing normal myocardial perfusion imaging. Today she reports that she has chronic issues with fatigue and not sleeping well. A sleep study was ordered by her facing cutting machine operator. She has she said she missed the call to have this scheduled. She has chronic nasal congestion and breathe through her mouth. She tells me she is awakened very frequently during the night for sips of water. She has not had issues with chest discomfort. She has some shortness of breath with exertion but is unclear if it is her lungs or her nasal congestion. She has a sleep with her head of the bed elevated which is her norm. No heart palpitations, lightheadedness, presyncope, syncope, falls or leg edema.. She has been doing only light activities. She reports that she is still under high stress. She reports compliance with medications. [facility] Medical History Depression Anxiety and depression Lower back pain History of COVID-19 Uncontrolled hypertension Panic attack H/O ETOH abuse Anxiety History of low potassium Breast cancer Hypertension Surgical History History of carpal tunnel release Hx of tubal ligation History of breast lump/mass excision H/O: hysterectomy Family History Mother Heart disease Alzheimers disease Social History Household Members: None Housing: Apartment Housing Other:: 4th floor. No elevator Are you a primary caregiver services home to a significant other at home: No Do you presently have visiting nurse or other home services: Yes (Project Geophysicist twice daily) Alcohol intake: former Comment: 1:1 SI Patient Tobacco Use Status: Current someday Tobacco user Tobacco use type: Cigarette Cigarettes Per Day: 5 Years Smoked: 38YRS e-Cigarette/Vaping Use: Never Used Second Hand Smoke Exposure: Yes Advance Directives Date on File: 02/11/22 service: No Current occupational status: disabled Review of Systems Const All systems reviewed & are unremarkable except as noted in HPI and below Reports fatigue and Reports lethargy ENT Details: chronic nasal congestion, dry mouth Denies dizziness Card Denies chest pain, Denies chest pain at rest, Denies chest pain with activity, Denies rapid heart rate, Denies pedal edema, Denies edema, Denies leg edema, Denies lightheadedness, Denies palpitations, Reports dyspnea, Denies dyspnea on exertion and Denies orthopnea Resp Denies cough, Reports dyspnea and Denies dyspnea on exertion GI Denies hematochezia and Denies change in stool character Musc Denies abnormal gait, Denies limited range of motion, Denies muscle cramps, Denies muscle weakness, Denies numbness, Denies radiating pain into limb, Denies stiffness and Denies tingling Neuro Denies abnormal gait, Denies dizziness, Denies numbness and Denies tingling Endo Reports fatigue and Denies palpitations Physical Exam Vital Signs: Last Vital Signs Pulse 114 H 02/27/25 14:33 BP 120/82 02/27/25 14:33 BMI result Body Mass Index 31.4 Const General: cooperative, healthy appearing, comfortable and no acute distress Orientation/consciousness: patient oriented x3 Neck Neck: Yes normal visual inspection and Yes no JVD Resp Effort & Inspection: normal respiratory effort Auscultation: clear to auscultation bilaterally, no rales, no rhonchi and no wheezes Cardio Rate: tachycardic Rhythm: regular rhythm Heart sounds: S1 normal heart sound present, S2 normal heart sound present, no gallops, no murmurs and no rubs Neuro General: patient oriented x3 Extrem General: Yes normal to inspection, No no pedal edema and No calf tenderness Psych Appearance: grossly normal Mental Status: mental status grossly normal Speech and movement: Normal speech and movement present Assessment & Plan Assessment & Plan (1) (HFpEF) heart failure with preserved ejection fraction: Code(s): I50.30 - Unspecified diastolic (congestive) heart failure Category: Medical Plan: Echocardiogram done 10/18/2021 had shown EF 30-35%, mild LVH. She did follow with our office again until 07/2024. Last echo [place]/23/2024 [place] [facility] [place], showed EF 55-60%, small loculated effusion over the left ventricle. Nuclear stress test done 02/09/2025 showed exercise 5 minutes with no EKG changes and normal myocardial perfusion imaging. She does not appear fluid overloaded on exam today. Continue current meds including Lasix, Aldactone. Continue losartan and metoprolol XL for neurohormonal modulation. She tells me she has only been taking half a tablet of the metoprolol. Will have her take the full 25 mg dose. Signs and symptoms of heart failure reviewed with her. Cardiology follow-up 6 months, sooner if needed (2) Chest discomfort: Code(s): R07.89 - Other chest pain Category: Medical Plan: Prior reports of chest discomfort. Nuclear stress test was normal. Symptom has resolved. (3) Hypertension: Code(s): I10 - Essential (primary) hypertension Category: Medical Qualifiers: Hypertension type: unspecified Qualified Code(s): I10 - Essential (primary) hypertension Plan: Blood pressure goal less than 130/80. Blood pressure normal today. Will have her increase metoprolol to the ordered dose as above. (4) Dyspnea: Code(s): R06.00 - Dyspnea, unspecified Category: Medical Plan: Reports of daytime fatigue and shortness of breath which could be related to frequent nasal congestion. A nuclear stress test was ordered by pulmonology. She missed the call. I gave her a card to call centralized scheduling to reschedule this test. (5) Sinus tachycardia: Code(s): R00.0 - Tachycardia, unspecified Category: Medical Plan: EKG last visit showed sinus tachycardia, unclear cause. Following last visit she was sent for D-dimer, troponin, BNP and they were all normal. She was started on metoprolol at that time and tells me she has only been taking half a tablet. Pulse rate is elevated today and regular on exam. She reports good hydration. Last TSH 1.77 on 06/16/2024. Recent labs show mild anemia, normal white count, normal electrolytes. Will have her take metoprolol 25 mg daily. Will check Holter monitor to assess for average heart rate. If she continues to have tachycardia then dose can be increased up to 50 mg daily. Plan Time spent on chart review, documentation, interview and assessment Orders: Orders ECG 3 day holter monitor Today R00.0 - Tachycardia, unspecified Coding Level of Care Code Est Pt Level 4 (67662) Complex EM visit Add On G2211 Diagnoses (HFpEF) heart failure with preserved ejection fraction I50.30 Chest discomfort R07.89 Hypertension I10 Hypertension type: unspecified Dyspnea R06.00 Sinus tachycardia R00.0 Time Spent (min) 28
--- OUTSIDE RECORDS SUMMARY | 2025-02-27 17:10 | XMS_ITS | Encounter Summary ---
Author Organization [employer] Address [address] [facility] 7[address] [place] [address] Care Team Providers Care Respiratory Support Technician Name Role Phone Shereen Latham MD Primary Care Provider [phone] Nupur Bullock PharmD Unavailable Sury Benitez Unavailable [phone] Nirali Madrid OD Unavailable Li Grande MD Unavailable [phone] Anselmo Gates MD Unavailable Margaret Holman Unavailable Herberth Stokes MD Unavailable [phone] Hilton Palacios MD Unavailable Reason for Visit * Reason Onset Date Comments Medication Question 07/05/2024 Encounter Details Date Type Department Care Team (Late st Contact Info) Description 07/05/2024 Telephone [facility] MEDICINE [address] [place], [place] [phone] Shereen Latham MD [address] [place], [place] [phone] Medication Question Social History Tobacco Use Types [...] is no medication interaction. Contact pt at [phone] documented in this encounter Plan of Treatment Upcoming Encounters Date Type Department Care Team (Late st Contact Info) Description 03/02/2025 11:15 AM EDT Office Visit [facility] MEDICINE [address] [place] [phone] Shereen Latham MD [address] [place] [address] 03/29/2025 2:00 PM EDT Office Visit [facility] ADULT DENTAL [address] [place] [phone] Jenny Gordon [address] [place] [address] 04/25/2025 2:30 PM EDT Medication Management [facility] MEDICINE [address] [place] [address] Nupur Bullock, PharmD [address] [place] [address] 04/26/2025 9:30 AM EDT Office Visit [facility] MEDICINE [address] [place] [address] Shereen Latham MD [address] [place] [address] documented as of this encounter Visit Diagnoses Diagnosis Pain Generalized pain documented in this encounter Additional Health Concerns Assessment Noted Time PHQ-9 Depression Total Score: 13 024 4:53 PM EDT documented as of this encounter Care Teams Respiratory Support Technician Relationship Specialty Start Date End Date Shereen Latham MD [address] [place] [address] PCP - General Family Medicine 11/02/18 Nupur Bullock, CharleneD [address] [place] [address] Pharmacist Internal Medicine 08/09/24 Sury Benitez [address] [place] [address] [address] [place] [address] Pulmonary Disease 09/27/24 Nirali Madrid OD [address] [place] [address] Optometry 10/27/24 Li Grande MD [address] [place] [address] Hematology and Oncology 10/27/24 Anselmo Gates MD [address] [facility] [address] [place] [address] Orthopaedic Surgery 10/27/24 Margaret Holman [address] [facility] 3rd [place] [address] Cardiology 10/27/24 Herberth Stokes MD [address] [facility] [address] [place] [address] Gastroenterology 10/27/24 Hilton Palacios MD [address] [place] [address], [address] [place] [address] Neurology 02/06/25 Pily Delaney Laboratory TesterKitchen Worker 07/22/24 Elie BRASHER [facility] Psychology 12/29/24 documented as of this encounter
--- OUTSIDE RECORDS SUMMARY | 2025-02-27 17:10 | XMS_ITS | Encounter Summary ---
Author Organization [employer] Address [address] [facility] 7t [place] [address] Care Team Providers Care Boilermaker Ship Name Role Phone Shereen Latham MD Primary Care Provider [phone] Nupur Bullock PharmD Unavailable Sury Benitez Unavailable [phone] Nirali Madrid OD Unavailable Li Grande MD Unavailable [phone] Anselmo Gates MD Unavailable Margaret Holman Unavailable Herberth Stokes MD Unavailable [phone] Hilton Palacios MD Unavailable [phone] Reason for Visit * Reason Onset Date Comments Lab Orders 02/24/2025 Encounter Details Date Type Department Care Team (Late st Contact Info) Description 02/24/2025 Telephone [facility] MEDICINE [address] [place], [place] [phone] Shereen Latham MD [address] [place], [place] [phone] Lab Orders Social History Tobacco Use Types Packs/Day Years [...] Telephone Encounter - Cira Martinez RN - 02/27/2025 2:21 PM EDT TC placed to pt in regards to the request for specific lab work to be ordered before sick onsite appt with Dr. Latham on 03/02/2025. The pt is being seen for chronic body aches and pains. The pt did call in and speak with the triage nurse on 02/13/2025 for these symptoms and would like PCP to possibly order blood work before this appt to rule out any potential pathology to her pain. The pt did have lab work done recently during recent hospitalizations and in December with PCP. Pt denies any worsening symptoms and confirmed that there is a follow up with rheumatology in April. Pt advised that this information will be forwarded to PCP for review and advisement regarding blood work being ordered. * Telephone Encounter - Wing Shaffer - 02/27/2025 1:21 PM EDT Pt returning call * Telephone Encounter - Cira Martinez RN - 02/24/2025 11:08 AM EDT TC placed to pt and LVM to call back the office * Telephone Encounter - Layton Jeff - 02/24/2025 9:27 AM EDT Tc from pt requesting PCP to order lab work to evaluate liver and kidney function. Please return call [phone] documented in this encounter Plan of Treatment Upcoming Encounters Date Type Department Care Team (Late st Contact Info) Description 03/02/2025 11:15 AM EDT Office Visit [facility] MEDICINE [address] [place] [address] Shereen Latham MD [address] [place] [address] 03/29/2025 2:00 PM EDT Office Visit [facility] ADULT DENTAL [address] [place] [address] Jenny Gordon [address] [place] [address] 04/25/2025 2:30 PM EDT Medication Management [facility] MEDICINE [address] [place] [address] Nupur Bullock, CharleneD [address] [place] [address] 04/26/2025 9:30 AM EDT Office Visit [facility] MEDICINE [address] [place] [address] Shereen Latham MD [address] [place] [address] documented as of this encounter Visit Diagnoses Not on filedocumented in this encounter Additional Health Concerns Assessment Noted Time PHQ-9 Depression Total Score: 22 025 10:17 AM EST documented as of this encounter Care Teams Boilermaker Ship Relationship Specialty Start Date End Date Shereen Latham MD [address] [place] [address] PCP - General Family Medicine 11/02/18 Nupur Bullock PharmD [address] [place] [address] Pharmacist Internal Medicine 08/09/24 Sury Benitez [address] [place] [address] [address] [place] [address] Pulmonary Disease 09/27/24 Nirali Madrid OD [address] [place] [address] Optometry 10/27/24 Li Grande MD [address] [place] [phone] Hematology and Oncology 10/27/24 Anselmo Gates MD [address] [place] [address] Orthopaedic Surgery 10/27/24 Margaret Holman [address] 3rd [place] [address] Cardiology 10/27/24 Herberth Stokes MD [address] [place] [address] Gastroenterology 10/27/24 Hilton Palacios MD [address] [place] [address], [address] [place] [address] Neurology 02/06/25 Pily Delaney Senior Data AnalystSite Supervising Technical Operator 07/22/24 Elie Vicky [facility] Psychology 12/29/24 documented as of this encounter
--- OUTSIDE RECORDS SUMMARY | 2025-02-27 17:10 | XMS_ITS | Clinical Summary ---
Author Organization [employer] Address [address] [place] [address] Care Team Providers Care Barrel Rifler Operator Name Role Phone Shereen Latham MD Primary Care Provider [phone] Nupur Bullock PharmD Unavailable Sury Benitez Unavailable [phone] Nirali Madrid OD Unavailable [phone] Li Grande MD Unavailable [phone] Anselmo Gates MD Unavailable Margaret Holman Unavailable Herberth Stokes MD Unavailable [phone] Hilton Palacios MD Unavailable [phone] Allergies Active Allergy Reactions Criticality Noted Date [...] 04/21/24 with uric acid 7.9 -Seen by pig furnace operator Dr. Bernstein 05/11/24 or evaluation of acute gout affecting left foot. -Pt admitted 07/25/24-07/2524 for swelling, pain, and warmth in the right knee. Patient had a low fever (100.3 F) and elevated WBC (20008 cells/uL), CRP, and ESR. Orthopedic surgery consulted [...] reach serum uric acid level <6 mg/dL(2020 [employer] guideline for the management [...] 04/21/24 with uric acid 7.9 -Seen by pig furnace operator Dr. Bernstein 05/11/24 or evaluation of acute gout affecting left foot. -Pt admitted 07/25/24-07/2524 for swelling, pain, and warmth in the right knee. Patient had a low fever (100.3 F) and elevated WBC (65873 cells/uL), CRP, and ESR. Orthopedic surgery consulted [...] reach serum uric acid level <6 mg/dL(2020 [employer] guideline for the management [...] reach serum uric acid level <6 mg/dL(2020 [employer] guideline for the management [...] ON 08/24/2024 9:45 AM BY JOLIE PA [facility] (07/25/2024 - 07/27/2024) Patient presented with swelling, pain, and warmth in the right knee. Patient had a low fever (100.3 F) and elevated WBC (58620 cells/uL), CRP, and ESR. Orthopedic surgery consulted [...] by mouth once daily for 5 days. [facility] ED (08/07/2024) Patient presented for right knee [...] of breath) 06/29/2024 Overview (12/29/2024): -Followed by [facility] Pulmonology with Sury Benitez NP -02/2024 [...] Plan (12/29/2024 11:03 AM EST): -Followed by [facility] Pulmonology with Sury Benitez NP -02/2024 [...] if needed. -pt reports she saw her ferryboat operator helper and is continuing management with them. . Assessment & Plan (07/13/2024 2:15 PM EDT): -referred to pulmonology 06/29/24 -Pt reports she has appt to see ferryboat operator helper 08/01/24 Assessment & Plan (06/29/2024 4:49 PM EDT): -referred to pulmonology 06/29/24 (HFpEF) heart failure with preserved ejection fr action 06/29/2024 Overview (02/24/2025): -Echocardiogram done 10/18/2021 had shown EF 30-35%, mild LVH. She did not come for cardiology follow-up after that finding. A stress test at that time was incomplete. -Dx with acute congestive heart failure with reduced EF during admission to [facility] 06/22/24. - She was started on [...] effusion and indeterminate diastolic function -Seen by [facility] Cardiology 08/01/24 : exercise nuclear stress [...] 2025 -Note from Margaret Holman 01/18/25 reviewed -exercise myocardial perfusion test 02/24/25: Myocardial perfusion imaging study shows normal myocardial perfusion. Gated LVEF is 45% during stress and 56% during rest. Correlate with echocardiogram. Transient ischemic dilatation not present. Assessment & Plan (12/29/2024 10:27 AM EST): >>ASSESSMENT AND PLAN FOR HISTORY OF CHRONIC CHF WRITTEN ON 06/29/2024 4:09 PM BY JOLIE Sampson with acute congestive heart failure with reduced EF during recent admission to [facility] 06/22/24. Pt was volume overloaded therefore [...] with reduced EF during recent admission to [facility] 06/22/24. Pt was volume overloaded therefore [...] failure with reduced EF during admission to [facility] 06/22/24. - She was started on [...] effusion and indeterminate diastolic function -Seen by [facility] Cardiology 08/01/24 : exercise nuclear stress [...] failure with reduced EF during admission to [facility] 06/22/24. - She was started on [...] effusion and indeterminate diastolic function -Seen by [facility] Cardiology 08/01/24 : exercise nuclear stress [...] Complex care coordination 01/11/2024 Overview (01/11/2024): -Has HOSPITALITY AMBASSADOR services with Chavo Martin is applying [facility] 01/11/2024 -In our complex care management program -referred to [facility] on 01/04/2024 -Messaged sent to care clinician for assistance in care visits Assessment & Plan (12/29/2024 10:21 AM EST): -Has HOSPITALITY AMBASSADOR services with Chavo Martin is applying [facility] 01/11/2024 -In our complex care management program -referred to [facility] on 01/04/2024 -Messaged sent to care clinician for assistance in care visits Assessment & Plan (08/24/2024 9:19 AM EDT): -Has HOSPITALITY AMBASSADOR services with Chavo Martin is applying [facility] 01/11/2024 -In our complex care management program -referred to [facility] on 01/04/2024 -Messaged sent to C3 care clinician for assistance in care visits Assessment & Plan (06/29/2024 4:06 PM EDT): -Has HOSPITALITY AMBASSADOR services with Chavo -Leonora is applying [facility] 01/11/2024 -In our complex care management program -referred to [facility] on 01/04/2024 -Messaged sent to care clinician for assistance in care visits Assessment & Plan (01/11/2024 9:30 AM EDT): -Has HOSPITALITY AMBASSADOR services with Chavo -She is applying [facility] 01/11/2024 -In our C3 complex care management program -referred to [facility] on 01/04/2024 -Messaged sent to C3 care clinician for assistance in care visits Generalized anxiety [...] Pain Management team and will reconnect with [facility]. Information given to patient. PLAN: (check all that apply) Behavioral Health Integration Plan Self- referred to [facility]/N per patient's preference. Assessment & Plan (11/24/2023 11:53 AM EST): STEFANY-7 Total Score: 21 (10/22/2023 10:44 AM) New/Additional Services needed Off-site services for , Behavioral Health Integration Plan External OP therapy referral , Patient Self Plan Patient to utilize skills provided in intervention , Patient to reach out to [facility] team as needed, and Patient to engage in OP therapy Provided patient with support in scheduling an Intake appt with [facility]. Tubular adenoma of colon 09/07/2023 Overview (12/29/2024): [...] for transfusion - Iron infusions ordered by Courtroom Deputy Or Calendar Clerk DR. Grande - She recieved two sessions [...] for transfusion - Iron infusions ordered by Courtroom Deputy Or Calendar Clerk DR. Grande - She recieved two sessions [...] for transfusion - Iron infusions ordered by Courtroom Deputy Or Calendar Clerk DR. Grande - She recieved two sessions [...] for transfusion - Iron infusions ordered by Courtroom Deputy Or Calendar Clerk DR. Grande - She recieved two sessions [...] pedro back by: Janett Ortega Person calling: [email or web address] Date:06/16/24 Time: 1218 Assessment & Plan (07/29/2023 4:34 PM EDT): Received magnesium IV in ER -Dose increased to TID - Recheck in 2 weeks Other specified health status 07/20/2023 Overview (07/11/2024): -next physical exam due after 06/29/25 -eye care facilitated by [facility] -dental home is [facility] -health care proxy filed 06/29/24 Assessment & Plan (06/29/2024 4:03 PM EDT): -next physical exam due after 06/29/25 -eye care facilitated by [facility] -dental home is [facility] -health care proxy given and filed 06/29/24 [...] on scene within 10 minutes, transfer completed [facility] ER called with expect Chronic GERD 05/26/2023 [...] had ultrasound sound for abdominal pain at [facility] revealing diffusely echogenic parenchyma with focal sparing [...] had ultrasound sound for abdominal pain at [facility] revealing diffusely echogenic parenchyma with focal sparing [...] had ultrasound sound for abdominal pain at [facility] revealing diffusely echogenic parenchyma with focal sparing [...] had ultrasound sound for abdominal pain at [facility] revealing diffusely echogenic parenchyma with focal sparing [...] had ultrasound sound for abdominal pain at [facility] revealing diffusely echogenic parenchyma with focal sparing [...] been referred to [facility] for Support and Recovery but has [...] subsequently declined -Admitted for alcohol detox at [facility] 04/09/24 -reports she is currently not [...] been referred to [facility] for Support and Recovery but has [...] subsequently declined -Admitted for alcohol detox at [facility] 04/09/24 -reports she is currently not [...] been referred to [facility] for Support and Recovery but has [...] subsequently declined -Admitted for alcohol detox at [facility] 04/09/24 -reports she is currently not [...] phenobarb improved her symptoms, patient declined life insurance sales help to place her in rehab, is [...] phenobarb improved her symptoms, patient declined life insurance sales help to place her in rehab, is [...] type, invasive tumor 2.2 cm ER positive, MT positive, HER-2/RON negative, two sentinel nodes negative. -S/p RIGHT mastectomy with sentinel node bx by Dr. [facility] -Adriamycin/Cytoxan based chemotherapy started Oct, [...] type, invasive tumor 2.2 cm ER positive, MT positive, HER-2/RON negative, two sentinel nodes negative. -S/p RIGHT mastectomy with sentinel node bx by Dr. Martinezat [facility] -Adriamycin/Cytoxan based chemotherapy started Oct, completed 4 [...] type, invasive tumor 2.2 cm ER positive, MT positive, HER-2/RON negative, two sentinel nodes negative. -S/p RIGHT mastectomy with sentinel node bx by Dr. Prescott [facility] -Adriamycin/Cytoxan based chemotherapy started Oct, completed 4 [...] type, invasive tumor 2.2 cm ER positive, MT positive, HER-2/RON negative, two sentinel nodes negative. -S/p RIGHT mastectomy with sentinel node bx by Dr. Prescott [facility] -Adriamycin/Cytoxan based chemotherapy started Oct, completed 4 [...] type, invasive tumor 2.2 cm ER positive, MT positive, HER-2/RON negative, two sentinel nodes negative. -[facility] started Oct, [...] type, invasive tumor 2.2 cm ER positive, MT positive, HER-2/RON negative, two sentinel nodes negative. -S/p RIGHT mastectomy with sentinel node bx by Dr. Martinezat [facility] -Adriamycin/Cytoxan based chemotherapy started Oct, completed 4 [...] type, invasive tumor 2.2 cm ER positive, MT positive, HER-2/RON negative, two sentinel nodes negative. -S/p RIGHT mastectomy with sentinel node bx by Dr. Prescott [facility] -Adriamycin/Cytoxan based chemotherapy started Oct, completed 4 [...] type, invasive tumor 2.2 cm ER positive, MT positive, HER-2/RON negative, two sentinel nodes negative. -S/p [facility]toxan [facility] started Oct, completed [...] type, invasive tumor 2.2 cm ER positive, MT positive, HER-2/RON negative, two sentinel nodes negative. -S/p RIGHT maste[facility] with sent[facility]/Cytoxan based [facility] started Oct, completed [...] type, invasive tumor 2.2 cm ER positive, MT positive, HER-2/RON negative, two sentinel nodes negative. -S/[facility]an [facility] started Oct, [...] She did reestablish care and saw Dr. rGande 04/2014. At that time she reported left [...] Overview (06/28/2024): Lab Results Component Value Date [id number] 58.3 06/16/2024 [id number] 106.4 01/04/2024 [id number] 76.8 09/22/2023 Assessment & Plan (06/29/2024 3:39 PM EDT): Lab Results Component Value Date [id number] 58.3 06/16/2024 [id number] 106.4 01/04/2024 [id number] 76.8 09/22/2023 Assessment & Plan (12/14/2023 12:09 PM EST): Lab Results Component Value Date [id number] 76.8 09/22/2023 -Labs ordered for further evaluation: Vitmain D, 25-hydroxy, Total, Immunoassay. 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 Per Dr. Krish Loomis's note from [facility], pt was due for repeat colposcopy in [...] CIN2-3. Per Dr. Krish Loomis's note from [facility], pt was due for repeat colposcopy in [...] CIN2-3. Per Dr. Krish Loomis's note from [facility], pt was due for repeat colposcopy in [...] CIN2-3. Per Dr. Krish Loomis's note from [facility], pt was due for repeat colposcopy [...] Health Integration Plan Internal Follow up with [facility] Patient Self Plan Patient to utilize skills provided in intervention , Patient to reach out to [facility] team as needed, Patient to reach out to [facility] as needed, and will contact [facility] Intake number to connect with intermodal owner operator truck driver OP services, and psychiatrist. Rule Out Diagnoses: [...] as pharmacomtherapy, [facility] smoking cessation group, and [facility] pharmacy smoking cessation clinic Discussed USPSTF [...] as pharmacomtherapy, [facility] smoking cessation group, and [facility] pharmacy smoking cessation clinic Discussed USPSTF [...] as pharmacomtherapy, [facility] smoking cessation group, and [facility] pharmacy smoking cessation clinic Discussed USPSTF [...] as pharmacomtherapy, [facility] smoking cessation group, and [facility] pharmacy smoking cessation clinic Discussed USPSTF [...] as pharmacomtherapy, [facility] smoking cessation group, and [facility] pharmacy smoking cessation clinic Discussed USPSTF [...] flare 05/11/2024 12/29/2024 Overview (07/13/2024): Seen by pig furnace operator Dr. Bernstein 05/11/24 or evaluation of [...] Plan (07/13/2024 2:21 PM EDT): Seen by pig furnace operator Dr. Bernstein 05/11/24 or evaluation of [...] acid. Acute gout of left foot 04/25/2024 122 04/2024 Alcohol dependence with unsp ecified alcohol-induced [...] EDT): Patient requesting a Physical for her HOSPITALITY AMBASSADOR hours to be re-instated. On exam today, her vitals are stable and her exam seems unchanged from previous one. Work up in progress for her c/o bilateral foot pain Hospital discharge follow-up 06/18/2023 07/20/2023 Assessment & Plan (07/14/2023 10:23 AM EDT): Patient here for a HDF. She was admitted to [facility] from 06/05-06/08 . She presented with concerns [...] Hyperaldosteronism 11/16/2022 3 Overview (11/16/2022): Seen by [facility] 04/03/2022. Initially seen 12/2021 for hyperaldosteronism. Labs [facility] 10/2021 aldosterone 8, plasma renin 0.11, aldosterone/renin 72.7. She was likely on spironolactone and lisinopril at time of labs. Advise no spironolactone for 6 weeks and recheck renin aldosterone levels with renal panel and magnesium in casino host. Assessment & Plan (11/16/2022 10:55 AM EST): Seen by [facility] 04/03/2022. Initially seen 12/2021 for hyperaldosteronism. Labs [facility] 10/2021 aldosterone 8, plasma renin 0.11, aldosterone/renin 72.7. She was likely on spironolactone and lisinopril at time of labs. Advise no spironolactone for 6 weeks and recheck renin aldosterone levels with renal panel and magnesium in casino host. Anxiety 04/19/2014 01/28/2024 Encounters Date Type Department Care Team Description 02/24/[address] [address] Shereen Latham MD Lab Orders 02/23/[address] [address] Shereen Latham MD chartprep 02/15/2025 Refill [facility] [address] [place], [place] [phone] Shereen Latham MD Pain 02/13/[address] [address] Shereen Latham MD Nurse Triage 02/09/2025 Orders Only [facility] External Provider, [facility] Heart failure with preserved ejection fraction, unspecified HF chronicity (CMS/HCC) (Primary Dx) 01/27/2025 Orders Only [address] [address] Shereen Latham MD History of right breast cancer (Primary Dx) 01/27/2025 Orders Only [address] [address] Shereen Latham MD Hypomagnesemia (Primary Dx) 01/24/2025 1:00 PM EDT Clinical Support [facility] DIABETES/NUTRITIO N [address] [place] [phone] History of chronic CHF (Primary Dx) 01/24/[address] [address] Shereen Latham MD Medication Question 01/24/2025 Travel 01/19/2025 Orders Only [address] [address] Stacey Khan MD Women's annual routine gynecological examination (Primary Dx) 01/19/2025 Orders Only [address] [address] Stcaey Khan MD Breast pain, left (Primary Dx); History of right breast cancer 01/17/2025 3:00 PM EDT Nutrition [facility] DI[facility]ET[facility]NUTRITIO N [address] [place] [phone] History of chronic CHF 01/17/2025 Refill [facility] [address] [place] [address] Shereen Latham MD Pain 01/17/2025 Travel 01/17/2025 Refill [facility] [address] [place] [address] Mayda Rush MD Pain 01/16/2025 Telephone [facility] [address] [place] [address] Shereen Latham MD Appointment Request 01/13/2025 Population Health Risk Score [facility] () Department [address] [place] [phone] Provider, Population Health Generic 01/12/2025 Refill [facility] [address] [place] [address] Shereen Latham MD Benign essential hypertension 01/09/2025 Refill [facility] [address] [place] [address] Shereen Latham MD Gastroesophageal reflux disease, unspecified whether esophagitis present; Vitamin D deficiency; Nasal congestion 01/03/2025 Telephone [facility] [address] [place] [address] Shereen Latham MD Referral 12/29/2024 10:30 AM EST Office Visit [facility] [address] [place] [address] Shereen Latham MD History of right breast [...] coordination; Tubular adenoma of colon 12/29/2024 Telephone [facility] [address] [place] [address] Shereen Latham MD Results 12/29/2024 Orders Only [address] [address] Shereen Latham MD Gout, unspecified cause, unspecified chronicity, unspecified site 12/29/2024 Orders Only GENERIC EXTERNAL DATA DEPARTMENT Provider, Generic External Data 12/29/2024 Travel 12/22/[address] [address] Shereen Latham MD Durable Medical Equipment; chartprep 12/22/[address] [address] Shereen Latham MD Nurse Triage 12/21/2024 3:30 PM EST Telemedicine [address] [address] Nupur Bullock PharmD Preventative health care (Primary Dx) 12/21/2024 Travel 12/21/2024 Refill [facility] [address] [place] [address] Shereen Latham MD Pain 12/20/2024 Orders Only [facility] External Provider, [facility] 12/14/2024 Travel 12/12/2024 Patient Outreach [address] [address] Shereen Latham MD Transition Of Care (Tcm) 12/10/2024 Orders Only GENERIC EXTERNAL DATA DEPARTMENT Provider, Generic External Data 12/09/[address] [address] Shereen Latham MD Nurse Triage 12/07/[address] [address] Shereen Latham MD ER Follow-up 12/06/2024 Orders Only GENERIC EXTERNAL DATA DEPARTMENT Provider, Generic External Data 12/03/2024 Travel from Last 3 Months Immunizations Name [...] Description 03/02/2025 11:15 AM EDT Office Visit [facility] [address] [place] [address] Shereen Latham MD [address] [place] [address] 03/29/2025 2:00 PM EDT Office Visit [facility] [address] [place] [address] Jenny Gordon [address] [place] [address] 04/25/2025 2:30 PM EDT Medication Management [facility] [address] [place] [address] Nupur Bullock, PharmD [address] [place] [address] 04/26/2025 9:30 AM EDT Office Visit [facility] [address] [place] [address] Shereen Latham MD [address], [place] [phone] Health Maintenance Due Date Last Done Comments CT Colonography 1973 FIT 1973 FOBT 1975 Sigmoidoscopy 1975 Dental X-Ray: Full Mouth 07/07/2022 07/06/2019 Zoster Vaccines (1 of 2) 2023 Dental Oral Exam 12/19/2024 06/17/2024, 07/06/2019 Diagnostic Breast Imaging 03/07/2025 02/23/2025, Mammogram 03/25/2025 02/23/2025, 02/01, 08/27/2023, Additional history exists Dental Prophylaxis 03/29/2025 09/28/2024, 1 , 07/06/2019 Alcohol/Substance Use Screening 04/25/2025 04/25/2024 Influenza Vaccine (#1) 2025 09/06/2015 Postp oned from 07/03/2024 (Patient Refused) Dental X-Ray: Bitewings 06/18/2025 06/17/20 24, 03/31/2024, 08/16/2021, Additional history exists DTaP/Tdap/Td Vaccines [...] 02/23/2025 11:40 AM EDT Breast pain, left STRESS TEST WITH MYOCARDIAL PERFUSION Routine 02/09/2025 9:30 AM EDT MAGNESIUM Routine 02/07/2025 9:49 AM EDT Hypomagnesemia [...] EDT Narrative 02/23/2025 1:08 PM EDT ? [facility] [address] ?[place] [address] ? Ultrasound Report ? Signed ? Patient: Azra Cast ?MR#: [id number] ?? [id number] ? : 1975 ?Acct:[id number] ? Age/Sex: 49 / F ?ADM Date: 02/23/25 ? Loc: HO.MAMMO ? Attending Dr: Stacey Khan MD ? Ordering Physician: Stacey Khan MD ?? Date of Service: 02/23/25 ?? Procedure(s): US breast LT limited mamm only ?? Accession Number(s): [id number] ? cc: Shereen Latahm MD; Stacey Khan MD ? EXAMINATION: ?? [...] BI-RADS breast ?? composition Category b). ?? [place] marker in the upper outer breast area [...] ??Cara Rodriges DO ??02/23/2025 01:06 PM EDT ? Dictated By: ?Cara Rodriges DO ? Signed By: ?<Electronically signed by Cara Rodriges, DO in OV> ? 02/23/25 1306 ? DD/ 1215 ? TD/TT: 02/23/25 1237 ? Control Officer: ? Procedure Note Sumi, Gypsy - 02/23/2025 [facility] [address] [place] [address] Ultrasound Report Signed Patient: Maged Cast#: [id number] : 1975Acct:[id number] Age/Sex: 49 / FADM Date: 02/23/25 Loc: HO.MAMMO Attending Dr: Stacey Khan MD Ordering Physician: Stacey Khan MD Date of Service: 02/23/25 Procedure(s): US breast LT limited mamm only Accession Number(s): [id number] cc: Shereen Latham MD; Stacey Khan MD [...] density (ACR BI-RADS breast composition Category b). [place] marker in the upper outer breast area [...] 02/23/25 1306 DD/ 1215 TD/TT: 02/23/25 1237 Control Officer: us Stacey Khan MD IMG US PROCEDURES Final Result * BI Mammogram Diagnostic Tomosynthesis Left (02/23/2025 11:40 AM EDT) Anatomical Region Laterality Modality Breast Left Mammography 02/23/2025 11:4 0 AM EDT Narrative 02/23/2025 1:08 PM EDT ? [facility] ? [address] ?[place] [address] ?[phone] ? Mammography Report ? Signed ? Patient: Cast,Azra ?MR#: [id number] ?? [id number] ? : 1975 ?Acct:[id number] ? Age/Sex: 49 / F ?ADM Date: 02/23/25 ? Loc: HO.MAMMO ? Attending Dr: Stacey Khan MD ? Ordering Physician: Stacey Khan MD ?Results: 4Suspicio ?? us Finding ? Date of Service: 02/23/25 ?Follow Up: Biopsy Recommend ?? ed ? Procedure(s): MM tomosynthesis diagnostic LT ?? Accession Number(s): [id number] ? cc: Shereen Latham MD; Stacey Khan [...] BI-RADS breast ?? composition Category b). ?? [place] marker in the upper outer breast area [...] PM EDT ?? RP ? Dictated By: ?Tyminski,Cara DO ? Signed By: ?<Electronically signed by Cara Rodriges, DO in OV> ? 02/23/25 1306 ? DD/ 1140 ? TD/TT: 02/23/25 1150 ? Control Officer: ? Procedure Note Gypsy Jonas - 02/23/2025 [facility] [address] [place] [address] Dr. Sierra, AGUILA [address] Mammography Report Signed Patient: Maged Cast#: [id number] : 1975Acct:[id number] Age/Sex: 49 / FADM Date: 02/23/25 Loc: HO.MAMMO Attending Dr: Stacey Khan MD Ordering Physician: Stacey Khan MDResults: 4Suspicio us Finding Date of Service: 02/23/25Follow Up: Biopsy Recommend ed Procedure(s): MM tomosynthesis diagnostic LT Accession Number(s): [id number] cc: Shereen Latham MD; Stacey Khan MD [...] density (ACR BI-RADS breast composition Category b). [place] marker in the upper outer breast area [...] 02/23/25 1306 DD/ 1140 TD/TT: 02/23/25 1150 Control Officer: us Stacey Khan MD IMG BI PROCEDURES Final Result * Stress test with myocardial perfusion (02/09/2025 9:30 AM EDT) 02/09/2025 9:30 AM EDT Narrative [facility] - 02/24/2025 11:11 AM EDT ? [facility] ?[address] ?[place] [address] ?Nuclear Medicine Report ? Signed ? Patient: CastAdrianah ?MR#: [id number] ?? 3774 ? : 1975 ?Acct:[id number] ? Age/Sex: 49 / F ?ADM Date: 02/09/25 ? Loc: HO.CARD ? Attending Dr: Margaret ALMANZA ? Ordering Physician: Margaret Holman ?? Date of Service: 02/09/25 ?? Procedure(s): NM cardiolite stress test ?? Accession Number(s): [id number] ? cc: Shereen Latham MD; Margaret Holman ? EXERCISE MYOCARDIAL PERFUSION STUDY ? INDICATION: ?? Chest pain ? TECHNIQUE: ? The patient was brought in for an exercise perfusion study on ?? 02/09/2025. Patient performed exercise as per Shamar protocol and was ?? injected ??30 mCi of sestamibi once target heart rate was achieved. ?? Images were obtained using the SPECT gamma camera interlaced with the ?? gating device. Images were obtained in supine position. ? Resting perfusion study was performed on 02/22/2025. Patient was ?? administered 30 mCi of sestamibi intravenously at rest. Images were ?? then obtained in supine position. Total DLP 128 mGy-cm. ? Images were processed with the software and compared side to side in ?? short axis, horizontal long axis and vertical long axis views. ? FINDINGS: ? Raw aquisition reviewed. ? The stress perfusion study showed ??no significant perfusion ?? abnormality. Both uncorrected as well as CT attenuation corrected ?? images were reviewed. The gated study shows mildly reduced LV systolic ?? function with calculated LVEF of 45%. LV cavity is normal in size. The ?? gated study shows normal ??wall thickening and contraction of segments. ? Resting study shows no significant perfusion abnormality. Gating at ?? rest reveals normal wall motion with ejection fraction at 56%. ? The findings are consistent with no clear reversible or fixed perfusion ?? abnormality. ? NM/NM cardiolite stress test ?? IMPRESSION: ? 1. ??Myocardial perfusion imaging study shows normal myocardial ?? perfusion. ?? 2. ??Gated LVEF is 45% during stress and 56% during rest. Correlate with ?? echocardiogram. ?? 3. Transient ischemic dilatation not present. ? EKG component of the test reported separately. ? Electronically signed by: ??Stevie Cano MD ??02/24/2025 11:08 ?? AM EDT ? Dictated By: ?Stevie Cano MD ? Signed By: ?<Electronically signed by Stevie Cano MD in OV> ?02/24/25 1108 ? DD/ 0930 ? TD/TT: 02/22/25 1215 ? Control Officer: ? Procedure Note Gypsy Jonas - 02/24/2025 [place] [address] Nuclear Medicine Report Signed Patient: Maged Cast#: [id number] : 1975Acct:[id number] Age/Sex: 49 / FADM Date: 02/09/25 Loc: [place] Attending Dr: Margaret ALMANZA Ordering Physician: Margaret Holman Date of Service: 02/09/25 Procedure(s): NM cardiolite stress test Accession Number(s): [id number] cc: Shereen Latham MD; Margaret Holman EXERCISE MYOCARDIAL PERFUSION STUDY INDICATION: Chest pain TECHNIQUE: The patient was brought in for an exercise perfusion study on 02/09/2025. Patient performed exercise as per Shamar protocol and was injected 30 mCi of sestamibi once target heart rate was achieved. Images were obtained using the SPECT gamma camera interlaced with the gating device. Images were obtained in supine position. Resting perfusion study was performed on 02/22/2025. Patient was administered 30 mCi of sestamibi intravenously at rest. Images were then obtained in supine position. Total DLP 128 mGy-cm. Images were processed with the software and compared side to side in short axis, horizontal long axis and vertical long axis views. FINDINGS: Raw aquisition reviewed. The stress perfusion study showed no significant perfusion abnormality. Both uncorrected as well as CT attenuation corrected images were reviewed. The gated study shows mildly reduced LV systolic function with calculated LVEF of 45%. LV cavity is normal in size. The gated study shows normal wall thickening and contraction of segments. Resting study shows no significant perfusion abnormality. Gating at rest reveals normal wall motion with ejection fraction at 56%. The findings are consistent with no clear reversible or fixed perfusion abnormality. NM/NM cardiolite stress test IMPRESSION: 1. Myocardial perfusion imaging study shows normal myocardial perfusion. 2. Gated LVEF is 45% during stress and 56% during rest. Correlate with echocardiogram. 3. Transient ischemic dilatation not present. EKG component of the test reported separately. Electronically signed by: Stevie Cano MD 02/24/2025 11:08 AM EDT Dictated By: Stevie Cano MD Signed By: <Electronically signed by Stevie Cano MD inOV> 02/24/25 1108 DD/ 0930 TD/TT: 02/22/25 1215 Control Officer: [facility] External Provider CV STRE SS PROCEDURES Edited Result - Final [facility] [address] [place] [address] * Magnesium (02/07/2025 9:49 AM EDT) Only the most recent of3 resultswithin the time period is included. Magnesium 1.7 1.6 - 2.6 mg/dL [facility] Blood Venous blood specimen / Unknown 02/07/2025 9:49 AM EDT 02/07/2025 11:07 AM EDT Shereen Latham MD LAB BLOOD ORDERABLES Final Result Performing Organization Address [facility] Phone Number [facility] [address] [place] [phone] * D Dimer High Sensitivity (01/19/2025 4:33 PM EDT) [facility] D Dimer High Sensitivity <150 NG/ML [facility] Comment:D-DIMER HS REFERENCE RANGENote: Our assay reports D-Dimer Units (D- DU).The cut-off value for venous thromboembolic (VTE) disease is230 ng/mL. This value has a very high negative predictivevalue when the patient has a low to moderate clinicalprobability of VTE.The upper limit of normal is 243 ng/mL. 01/19/2025 4:33 PM EDT 01/19/2025 4:34 PM EDT [employer] External Data Provider LAB BLOOD ORDERAB LES Final Result Performing Organization Address [facility] [address] [place] [phone] * High Sensitivity Troponin I (01/19/2025 4:33 PM EDT) Only the most recent of2 resultswithin the time period is included. Pathologist [facility] TROPONIN I HIGH SENSITIVITY 7.8 <3.5 - 17.0 ng/L [facility] Comment:The Henriquez high sens itivity Troponin-I results should beused in conjunction with other diagnostic information suchas ECG, clinical observations and information, and patientsymptoms to aid in the diagnosis of [place]. 01/19/2025 4:33 PM EDT 01/19/2025 4:34 PM EDT us Generic External Data Provider LAB BLOOD ORDERAB LES Final Result Performing Organization Address [facility]/ZIP Co de Phone Number [facility] [address] [place] [phone] * B Type Natriuretic Peptide (BNP) (01/19/2025 4:33 PM EDT) Only the most recent of2 resultswithin the time period is included. [facility] B Type Natriuretic Peptide 22 <100 pg/mL [facility] 01/19/2025 4:33 PM EDT 01/19/2025 4:34 PM EDT us Generic External Data Provider LAB BLOOD ORDERAB LES Final Result [facility] [address] [place] [phone] [phone] * (ABNORMAL) CBC auto differential (12/29/2024 10:53 AM EST) Only the most recent of3 resultswithin the time period is included. [facility] White Blood Count 13.5(H) 4.8 - 10.8 X10*3/uL [facility] Red Blood Count 3.97(L) 4.20 - 5.50 X10*6/uL [facility] Hemoglobin 11.4(L) 12.0 - 16.0 g/dl [facility] Hematocrit 36.4(L) 37.0 - 47.0 % [facility] Mean Corpuscular Volume 91.7 80.0 - 98.0 fL [facility] Mean Corpuscular Hemoglobin 28.7 27.0 - 33.0 pg [facility] Mean Corpuscular HGB Conc 31.3 31.0 - 35.0 g/dl [facility] Red Cell Distribution Width 14.8 11.0 - 16.0 % [facility] Platelet Count 370 160 - 400 X10*3/uL [facility] Mean Platelet Volume 10.2 9.4 - 12.3 fL [facility] Neutrophils Percent Auto 70.1 45 - 73 % [facility] Imm Gran Pct Auto 1.8(H) 0.0 - 0.4 % [facility] Lymphocytes Percent Auto 18.9(L) 20 - 40 % [facility] Monocytes Percent Auto 7.8 2 - 11 % [facility] Eosinophils Percent Auto 0.7 0 - 4 % [facility] Basophils Percent Auto 0.7 0 - 2 % [facility] NRBC Pct Auto 0.0 0.0 - 0.2 /100WBC [facility] Neutrophils Absolute Auto 9.5(H) 2.0 - 8.3 x10*3/uL [facility] Imm Gran Abs Auto 0.25(H) 0.00 - 0.03 X10*3/uL [facility] Lymphocytes Absolute Auto 2.6 1.2 - 4.9 X10*3/uL [facility] Monocytes Absolute Auto 1.1 0.1 - 1.2 X10*3/uL [facility] Eosinophils Absolute Auto 0.1 0.0 - 0.4 X10*3/uL [facility] Basophils Absolute Auto 0.1 0.0 - 0.2 X10*3/uL [facility] NRBC Abs Auto 0.000 0.0 - 0.012 X10*3/uL [facility] 12/29/2024 10:5 3 AM EST 12/29/2024 1:06 PM EST us Generic External Data Provider LAB BLOOD ORDERAB LES Final Result Performing Organization Address City/State/[facility] Co de Phone Number [facility] [address] [place] [phone] * (ABNORMAL) Uric acid (12/29/2024 10:53 AM EST) Uric Acid 5.8(H) 2.4 - 5.7 mg/dL [facility] Blood Venous blood specimen / Unknown 12/29/2024 10:53 AM EST 12/29/2024 1:06 PM EST us Shereen Latham MD LAB BLOOD ORDERABLES Final Result Performing Organization Address City/[facility] Co de Phone Number [facility] [address] [place] [phone] * (ABNORMAL) Lipid Panel, Standard (12/29/2024 10:53 AM EST) Triglycerides 192(H) <150 mg/dL [facility] Comment:Desirable Triglyceri de: less than 150 mg/dLBorderline High Triglyceride 150-199 mg/dLHigh Triglyceride: 200-499 mg/dLVery High Triglyceride: greater than or equal to 5OO mg/dL Cholesterol 197 <200 mg/dL [facility] Comment:Desirable Cholestero l: less than 200 mg/dLBorderline High Cholesterol: 200-239 mg/dLHigh Cholesterol: greater than 239 mg/dL LDL Cholesterol Calculated 111(H) <100 mg/dL [facility] Comment:Desirable LDL: less than 100 mg/dLNear Optimal/Above Optimal LDL: 110- 129 mg/dLBorderline High LDL: 130-159 mg/dLHigh LDL: 160-189 mg/dLVery High LDL: greater than or equal to 190 mg/dL HDL Cholesterol 48 >40 mg/dL [facility] Comment:Desirable HDL: great er than 40 mg/dL Note: This HDL assay may give artificially low results in patients with liver disease. Blood Venous blood specimen / Unknown 12/29/2024 10:53 AM EST 12/29/2024 1:06 PM EST Shereen Latham MD LAB BLOOD ORDERABLES Final Result Performing Organization Address [facility] Co de Phone Number [facility] [address] [place] [phone] * (ABNORMAL) Basic Metabolic Panel (12/29/2024 10:53 AM EST) Sodium 139 135 - 145 mmol/L [facility] Potassium 4.1 3.3 - 5.1 mmol/L [facility] Chloride 105 96 - 108 mmol/L [facility] Carbon Dioxide 23 22 - 29 mmol/L [facility] Anion Gap 15 12 - 20 [facility] Urea Nitrogen (BUN) 32(H) 9 - 16 mg/dL [facility] Creatinine, Serum 0.91 0.5 - 1.4 mg/dL [facility] Estimated Glomerular Filt Rate >60 [facility] Comment:Chronic Kidney Disea se: Estimated GFR < 60 mL/min/1.50f6Wuhykb Kidney Disease: Estimated GFR < 15 mL/min/1.73m2 Glucose 161(H) 60 - 115 mg/dL [facility] Calcium 9.3 8.4 - 10.2 mg/dL [facility] Blood Venous blood specimen / Unknown 12/29/2024 10:53 AM EST 12/29/2024 1:06 PM EST us Shereen Latham MD LAB BLOOD ORDERABLES Final Result [facility] [address] [place] [phone] * XR Knee 1-2 Views Right (12/20/2024 7:45 AM EST) Anatomical Region Laterality Modality Lower Extremities, Knee Right Radiogra phic Imaging 12/20/2024 7:45 AM EST Narrative 12/20/2024 8:20 AM EST ? [facility] ?[address] ?[place] [address] ?XRay Report ? Signed ? Patient: Segun,Azra ?MR#: [id number] ?? 3774 ? : 1975 ?Acct:[id number] ? Age/Sex: 49 / F ?ADM Date: 02/18/25 ? Loc: HO.ED ? Attending Dr: ? Ordering Physician: Boby Dykes MD ?? Date of Service: 12/20/24 ?? Procedure(s): XR knee RT 2V ?? Accession Number(s): [id number] ? cc: Shereen Latham MD; Boby Dykes [...] DD/ 0745 ? TD/TT: 12/20/24 0751 ? Control Officer: ? Procedure Note Sumi, Image - 12/20/2024 [place] [address] XRay Report Signed Patient: Maged Cast#: [id number] : 1975Acct:[id number] Age/Sex: 49 / FADM Date: 12/20/24 Loc: HO.ED Attending Dr: Ordering Physician: Boby Dykes MD Date of Service: 12/20/24 Procedure(s): XR knee RT 2V Accession Number(s): [id number] cc: Shereen Latham MD; Boby Dykes MD [...] 12/20/24 0817 DD/ 0745 TD/TT: 12/20/24 0751 Control Officer: [facility] External Provider IMG XR PROCEDURES Edited Result - Final * XR Chest 1 View (12/11/2024 12:34 AM EST) Anatomical Region Laterality Modality Chest Radiographic Celina ging 12/11/2024 12:3 4 AM EST Narrative 12/11/2024 12:37 AM EST ? [facility] ?[address] ?[place] [address] ?XRay Report ? Signed ? Patient: Azra Cast ?MR#: [id number] ?? 3774 ? : 1975 ?Acct:[id number] ? Age/Sex: 49 / F ?ADM Date: 12/10/24 ? Loc: HO.ED ? Attending Dr: ? Ordering Physician: Sury Bustamante MD ?? Date of Service: 12/10/24 ?? Procedure(s): XR chest 1V ?? Accession Number(s): [id number] ? cc: Shereen Latham MD; Sury Bustamante MD ? CLINICAL HISTORY: chest pain cough ? 1 view chest x-ray ? Comparison: CR/MT - XR CHEST 2V - 12/30/24 17:50 [...] ?12/11/2435 ? DD/ ? TD/TT: 12/11/2433 ? Control Officer: ? Procedure Note Sumi, Gypsy - 12/11/[address] [address] XRay Report Signed Patient: Maged Cast#: [id number] : 1975Acct:[id number] Age/Sex: 49 / FADM Date: 12/10/24 Loc: HO.ED Attending Dr: Ordering Physician: Sury Bustamante MD Date of Service: 12/10/24 Procedure(s): XR chest 1V Accession Number(s): [id number] cc: Shereen Latham MD; Sury Bustamante MD CLINICAL HISTORY: chest pain cough 1 view chest x-ray Comparison: CR/MT - XR CHEST 2V - 10/31/24 17:50 EST Findings: No consolidation or effusion. Heart size is normal. No acute fracture. Right breast implant. IMPRESSION: 1. No acute cardiopulmonary findings. This document has been electronically signed by: Ashley Vazquez MD on 12/11/2024 00:34:57 Dictated By: Ashley Vazquez MD Signed By: <Electronically signed by Ashley Vazquez MD in OV> 12/11/246 DD/ 0034 TD/TT: 12/11/24 0034 Control Officer: [facility] External Provider IMG XR PROCEDURES Final Result * SARS-CoV-2 RNA, Influenza A/B, and RSV RNA, Ql NAAT (12/10/2024 11:48 PM EST) Only the most recent of2 resultswithin the time period is included. Influenza A PCR NEGATIVE Negative [facility] Influenza B PCR NEGATIVE Negative [facility] Resp Syncy Virus RNA Qual PCR NEGATIVE Negative [facility] SARS COV2 PCR NEGATIVE Negative [facility] Comment:All test results mus t be [...] use by authorized laboratories.Testing performed on the [employer] GeneXpert utilizingreal-time RT-PCR.All SARS CoV2 and positive influenza A/B results arereported to [facility]. 12/10/2024 11:4 8 PM EST 12/10/2024 11:53 PM EST us Generic External Data Provider LAB MICROBIOLOGY - GENERAL ORDERABLES Final Result [facility] [address] [place] [phone] * (ABNORMAL) Comprehensive Metabolic Panel (12/10/2024 11:48 PM EST) Only the most recent of2 resultswithin the time period is included. Sodium 143 135 - 145 mmol/L [facility] Potassium 3.7 3.3 - 5.1 mmol/L [facility] Chloride 108 96 - 108 mmol/L [facility] Carbon Dioxide 23 22 - 29 mmol/L [facility] Anion Gap 16 12 - 20 [facility] Urea Nitrogen (BUN) 24(H) 9 - 16 mg/dL [facility] Creatinine, Serum 1.11 0.5 - 1.4 mg/dL [facility] Creatinine Clr Calc Pharmacy 69.3 [facility] Comment:Provided height and weight: 170.18 cm,90.7 kg.eGFR (calculated from the MDRD study equation) and eCrCl(calculated from the Cockcroft-Gault equation) are based ondifferent parameters and may not yield comparable results.If eCrCl result is absurd, please check patient'sheight/weight. Estimated Glomerular Filt Rate 52 [facility] Comment:Chronic Kidney Disea se: Estimated GFR < 60 mL/min/1.37h2Lwzkmx Kidney Disease: Estimated GFR < 15 mL/min/1.73m2 Glucose 150(H) 60 - 115 mg/dL [facility] Calcium 9.3 8.4 - 10.2 mg/dL [facility] Bilirubin, Total 0.2 0.0 - 1.0 mg/dL [facility] Aspartate Amino Transferase 19 5 - 31 U/L [facility] Alanine Aminotransferase 14 0 - 31 U/L [facility] Total Protein 7.6 6.5 - 8.0 g/dL [facility] Albumin Level 4.0 3.5 - 5.0 g/dL [facility] Alkaline Phosphatase 87 39 - 117 U/L [facility] 12/10/2024 11:4 8 PM EST 12/10/2024 11:53 PM EST us Generic External Data Provider LAB BLOOD ORDERAB LES Final Result Performing Organization Address City/State/[facility] Co de Phone Number [facility] [address] [place] [phone] * CT Abdomen Pelvis w/ Contrast (12/06/2024 1:20 PM EST) Anatomical Region Laterality Modality Body, Pelvis, Abdomen Computed T omography 12/06/2024 1:20 PM EST Narrative 12/06/2024 2:00 PM EST ? [facility] ?[place] [address] ? CT Scan Report ? Signed ? Patient: Cast,[facility] ?MR#: [id number] ?? 3774 ? : 1975 ?Acct:[id number] ? Age/Sex: 49 / F ?ADM Date: 02/04/25 ? Loc: HO.ED ? Attending Dr: ? Ordering Physician: Leighann Ordonez DO ?? Date of Service: 12/06/24 ?? Procedure(s): CT abdomen pelvis w IV con ?? Accession Number(s): [id number] ? cc: Shereen Latham MD; Leighann Ordonez DO ? Report Number: ?? [id number]: Total DLP = ??712.00 mGy-cm ?? EXAMINATION: [...] PM ?? EST ? Dictated By: ?Waldemar Reevse MD ? Signed By: ?<Electronically signed by Waldemar Escobar MD in OV> ? 12/06/24 1358 ? DD/ 1320 ? TD/TT: 12/06/24 1333 ? Control Officer: ? Procedure Note Gypsy Jonas - 12/06/[address] [place] [address] [address] Scan Report Signed Patient: Maged Cast#: [id number] : 1975Acct:[id number] Age/Sex: 49 / FADM Date: 12/06/24 Loc: HO.ED Attending Dr: Ordering Physician: Leighann Ordonez DO Date of Service: 12/06/24 Procedure(s): CT abdomen pelvis w IV con Accession Number(s): [id number] cc: Shereen Latham MD; Leighann Ordonez DO Report Number: [id number]: Total DLP = 712.00 mGy-cm EXAMINATION: CT [...] 12/06/24 1358 DD/ 1320 TD/TT: 12/06/24 1333 Control Officer: [facility] External Provider IMG CT PROCEDURES Final Result * Urinalysis w/reflex microscopic (12/06/2024 11:14 AM EST) Color Urine Yellow [facility] Appearance Urine Clear [facility] PH 6.0 5.0 - 9.0 [facility] Glucose Urine UA Negative Negative mg/dL [facility] Urine Blood Negative Negative [facility] Specific [place] - Urine 1.025 1.005 - 1.025 [facility] Urine Protein Negative Neg-Trace mg/dL [facility] Urine Ketones Negative Negative mg/dL [facility] Nitrite Urine Negative Negative [facility] Leukocyte Esterase Urine Negative Negative [facility] 12/06/2024 11:1 4 AM EST 12/06/2024 11:18 AM EST Narrative [facility] - 12/06/2024 11:22 AM EST Urine, Clean Catch Generic External Data Provider LAB URINE ORDERAB LES Final Result Performing Organization Address [facility] Co de Phone Number [facility] [address] [place] [phone] * Lipase (12/06/2024 9:42 AM EST) Lipase 50 8 - 78 U/L [facility] 12/06/2024 9:42 AM EST 12/06/2024 9:45 AM EST Generic External Data Provider LAB BLOOD ORDERAB LES Final Result Performing Organization Address [facility] Co de Phone Number [facility] [address] [place] [phone] * (ABNORMAL) Hm Colonoscopy (07/11/2024) Pathologist [facility] Colonoscopy Abnormal( A) Normal Comment:Herberth Stokes MD ?tubular adenoma x 3 Herberth Stokes MD HEALTH MAINTENANCE Final Result * Hepatitis Panel, General (06/16/2024 8:22 AM EDT) [facility] Hepatitis A IgM Nonreactive Nonreactive [facility] Comment:IgM antibodies to VIRAMONTES V not detected; does not exclude earlyacute or recovered HAV infection. ~Hepatitis B Surface Antibody REACTIVE Nonreactive [facility] Comment:REACTIVE: > 11.99 mI U/mL Hepatitis B Core Antibody Nonreactive Nonreactive [facility] Hepatitis C Antibody Nonreactive Nonreactive [facility] Comment:Antibodies to HCV no t detected; does not exclude early acuteHCV infection. Hepatitis B Surface Ag Negative Negative [facility] Blood Venous blood specimen / Unknown 06/16/2024 8:22 AM EDT 06/16/2024 11:18 AM EDT Shereen Latham MD LAB BLOOD ORDERABLES Final Result [facility] [address] [place] [phone] * HIV-1/2 Antigen and Antibodies, Fourth Generation, with Reflexes (02/24/2024 8:47 AM EDT) [facility] HIV AB/AG Nonreactive Nonreactive [facility] Comment:HIV-1 p24 Ag and/or HIV-1/HIV-2 Ab not detected.A test result that is nonreactive does not exclude thepossibility of exposure to or infection with HIV-1 and/orHIV-2. Nonreactive results in this assay for individualswith prior exposure to HIV-1 and/or HIV-2 may be due toantigen and antibody levels that are below the limit ofdetection of this assay.The Clarity HIV Ag/Ab Combo assay result andsupplemental assay results should be interpreted inconjunction with the patient's clinical presentation,history and other laboratory results. If the results areinconsistent with clinical evidence, additional testing issuggested to confirm the result. Blood Venous blood specimen / Unknown 02/24/2024 8:47 AM EDT 02/24/2024 11:22 AM EDT [facility] LAB BLOOD ORDERABLES Final Resul t [facility] [address] [place] [phone] * (ABNORMAL) Cologuard?? colon cancer screening (08/27/2023 11:24 AM EDT) Cologuard Result Positive( A) Negative 09/05/2023 10:16 PM EDT [facility] (CLIA #:[id number]) Comment: POSITIVE TEST RESULT. A positive Cologuard [...] (Felix Mccoy al, N Engl J Med 2014;370(14):1776-8068.) Cologuard may produce a false negative or false positive result (no colorectal cancer or precancerous polyp present at colonoscopy follow up). A negative Cologuard test result does not guarantee the absence of CRC or advanced adenoma (pre-cancer). The current Cologuard screening interval is every 3 years. ([place] Cancer Society and U.S. Multi-Society Task Force). Cologuard performance data in a 10,000 patient pivotal study using colonoscopy as the reference method can be accessed at the following location: www.SoPost/results. Additional description of the Cologuard test process, warnings and precautions can be found at www.Enable Holdingsrd.ProspectWise. Stool specimen (specimen) 08/27/2023 11:24 AM EDT 08/29/2023 6:48 AM EDT Shereen Latham MD LAB MOLECULAR DIAGNOSTICS ORDERABLES Final Result [facility] (CLIA #:[id number]) [address] [place] [address], * HPV mRNA E6/E7 (08/12/2018 10:57 AM EDT) HPV mRNA E6/E7 Not Detected NOT DETECTED [facility] Comment: This test was performed using the APTIMA(R) HPV Assay ([employer] This assay detects E6/E7 viral messenger RNA (mRNA) from 14 high-risk HPV types (16,18,31,33,35,39,45,51, 52,56,58,59,66,68). For additional information please refer to: http://education.HashCube.ProspectWise/faq/BQD884p8 (This link is being provided for informational/ educational purposes only.) The analytical performance characteristics of this assay have been determined by [employer] [place], [place]. The modifications have not been cleared or approved by the FDA. This assay has been validated pursuant to the CLIA regulations and is used for clinical purposes. Test Performed by [facility], [employer] [address] [address] Dwaine Morelos M.D., Ph.D., Director of Laboratories , [facility] [id number] Please note: ??Effective 07/14/2016, HPV testing will be performed using Epic!'s APTIMA test which targets mRNA. Detecting mRNA instead of DNA, as in older methods, offers significant improvements in specificity. 08/12/2018 10:5 7 AM EDT us Shereen Latham MD HISTORICAL/NON ORDERABLE L ABS Final Result [facility] Anywhere [address] from Last 3 Months or Most Recently Relevant to Health Maintenance Insurance [facility] C3 DENTAL-[facility] MEDICAID STAND ADULT * Guarantor: Azra Cast Account Type Relation to Patient Date of Phone Billing Address Personal/Family Self [address] Advance Directives Documents on File Type Date Recorded Patient Congregational Care Pastor Expl anation Advance Directives and Living Will 07/05/2024 11:59 AM Health Care Proxy Care Teams Barrel Rifler Operator Relationship Specialty Start Date End Date [place], MD Shereen [address] [place] [address] PCP - General Family Medicine 11/02/18 Nupur Bullock, PharmD [address] [place] [address] Pharmacist Internal Medicine 08/09/24 Sury Benitez [address] [place] [address] [place] [address] Pulmonary Disease 09/27/24 Nirali Madrid OD [address] [place] [address] Optometry 10/27/24 Li Grande MD [address] [place] [address] Hematology and Oncology 10/27/24 Anselmo Gates MD [address] [place] [address] Orthopaedic Surgery 10/27/24 Margaret Holman [address] 3rd [place] [address] Cardiology 10/27/24 Herberth Stokes MD 11 [facility] 3rd [place] [address] Gastroenterology 10/27/24 Hilton Palacios MD [address] [facility], [address] [place] [address] Neurology 02/06/25 Pily Delaney Design SupervisorDelicatessen Goods Stock Clerk 07/22/24 Elie Vicky [facility] 12/29/24
--- OUTSIDE RECORDS SUMMARY | 2025-02-27 17:10 | XMS_ITS | Encounter Summary ---
Author Organization [employer] Address 75 [facility] 7t [place] [address] Care Team Providers Care Sales Service Rep Name Role Phone Sheeren Latham MD Primary Care Provider [phone] Nupur Bullock PharmD Unavailable Sury Benitez Unavailable [phone] Nirali Madrid OD Unavailable Li Grande MD Unavailable [phone] Anselmo Gates MD Unavailable Margaret Holman Unavailable Herberth Stokes MD Unavailable [phone] Hilton Palacios MD Unavailable Reason for Visit * Reason Onset Date Comments chartprep 02/23/2025 Encounter Details Date Type Department Care Team (Late st Contact Info) Description 02/23/2025 Telephone [facility] [address] [place], [place] [phone] Shereen Latham MD [address] [place], [place] [phone] chartprep Social History Tobacco Use Types Packs/Day [...] 11:15 AM EDT Office Visit [facility] [address] [place] [address] Shereen Latham MD [address] [place] [address] 03/29/2025 2:00 PM EDT Office Visit [facility] ADULT DENTAL [address] [place] [address] Jenny Gordon [address] [place] [address] 04/25/2025 2:30 PM EDT Medication Management [facility] [address] [place] [address] Nupur Bullock PharmD [address] [place] [address] 04/26/2025 9:30 AM EDT Office Visit [address] [address] Shereen Latham MD [address] [place] [address] documented as of this encounter Visit Diagnoses Not on filedocumented in this encounter Additional Health Concerns Assessment Noted Time PHQ-9 Depression Total Score: 22 025 10:17 AM EST documented as of this encounter Care Teams Sales Service Rep Relationship Specialty Start Date End Date Shereen Latham MD [address] [place] [address] PCP - General Family Medicine 11/02/18 Nupur Bullock, PharmD [address] [place] [address] Pharmacist Internal Medicine 08/09/24 Sury Benitez 10 [facility] [address] [place] [address] Pulmonary Disease 09/27/24 Nirali Madrid OD [address] [place] [address] Optometry 10/27/24 Li Grande MD [address] [place] [address] Hematology and Oncology 10/27/24 Anselmo Gates MD 10 [facility] [address] [place] [address] Orthopaedic Surgery 10/27/24 Margaret Holman 11 [facility] 3rd [place] [address] Cardiology 10/27/24 Herberth Stokes MD 11 [facility] 3rd [place] [address] Gastroenterology 10/27/24 Hilton Palacios MD 15 [facility], [address] [place] [address] Neurology 02/06/25 Pily Delaney Occupational Work Experience TeacherStreet Commissioner 07/22/24 Elie BRASHER [facility] Psychology 12/29/24 documented as of this encounter
--- OUTSIDE RECORDS SUMMARY | 2025-02-27 17:10 | XMS_ITS | Encounter Summary ---
Author Organization [employer] Address 75 [facility] 7t [place] [address] Care Team Providers Care Science Liaison Name Role Phone Shereen Latham MD Primary Care Provider [phone]- [phone] Nupur Bullock PharmD Unavailable Sury Benitez Unavailable [phone] Nirali Madrid OD Unavailable Li Grande MD Unavailable [phone] Anselmo Gates MD Unavailable Margaret Holman Unavailable Herberth Stokes MD Unavailable [phone] Hilton Palacios MD Unavailable Encounter Details Date Type Department Care Team (Latest Contact Info) Description 07/06/2019 Abstract [facility] CONVERSIONS Dental, Provider, DDS Social History Tobacco [...] 11:15 AM EDT Office Visit [facility] MEDICINE [address] [place] [address] Shereen Latham MD 230 [place] [address] 03/29/2025 2:00 PM EDT Office Visit [facility] ADULT DENTAL [address] [place] [address] Heidi, Jenny 230 [place] [address] 04/25/2025 2:30 PM EDT Medication Management [facility] [address] [place] [address] Nupur Bullock PharmD [address] [place] [address] 04/26/2025 9:30 AM EDT Office Visit [address] [address] Shereen Latham MD [address] [place] [address] documented as of this encounter Visit Diagnoses Not on filedocumented in this encounter Care Teams Science Liaison Relationship Specialty Start Date End Date Shereen Latham MD [address] [place] [address] PCP - General Family Medicine 11/02/18 Nupur Bullock, PharmD [address] [place] [address] Pharmacist Internal Medicine 08/09/24 Sury Benitez [address] [place] [address] [place] [address] Pulmonary Disease 09/27/24 Nirali Madrid OD [address] [place] [address] Optometry 10/27/24 Li Grande MD 575 [place] [address] Hematology and Oncology 10/27/24 Anselmo Gates MD [address] [place] [address] Orthopaedic Surgery 10/27/24 Margaret Holman [address] [facility] [address] 3rd [place] [address] Cardiology 10/27/24 Herberth Stokes MD [address] [facility] [address] 3rd [place] [address] Gastroenterology 10/27/24 Hilton Palacios MD 15 [facility], [address] [place] [address] Neurology 02/06/25 Pily Delaney Information ReceptionistRisk Compliance Manager 07/22/24 Elie Vicky [facility] 12/29/24 documented as of this encounter
--- OUTSIDE RECORDS SUMMARY | 2025-02-27 17:10 | XMS_ITS | Encounter Summary ---
Author Organization [employer] Address 75 [facility] 7t [place] [address] Care Team Providers Care Head Of Ict Name Role Phone Shereen Latham MD Primary Care Provider [phone] Nupur Bullock PharmD Unavailable Sury Benitez Unavailable [phone] Nirali Madrid OD Unavailable [phone] Li Grande MD Unavailable [phone] Anselmo Gates MD Unavailable Margaret Holman Unavailable Herberth Stokes MD Unavailable [phone] Hilton Palacios MD Unavailable Reason for Visit * Reason Comments Med Refill Encounter Details Date Type Department Care Team (Late st Contact Info) Description 01/17/2025 Refill [facility] MED & PEDS [address] [place], [place] [phone] Shereen Latham MD 230 [place], [place] [phone] Pain Social History Tobacco Use Types Packs/Day [...] 03/02/2025 11:15 AM EDT Office Visit [facility] MEDICINE 230 [place] [address] Shereen Latham MD 230 [place] [address] 03/29/2025 2:00 PM EDT Office Visit [facility] ADULT DENTAL [address] [place] [address] Jeramie Gordonaris 230 [place] [address] 04/25/2025 2:30 PM EDT Medication Management [facility] MEDICINE [address] [place] [address] Nupur Bullock, PharmD [address] [place] [address] 04/26/2025 9:30 AM EDT Office Visit [facility] MEDICINE [address] [place] [address] Shereen Latham MD [address] [place] [address] documented as of this encounter Visit Diagnoses Diagnosis Pain Generalized pain documented in this encounter Additional Health Concerns Assessment Noted Time PHQ-9 Depression Total Score: 22 025 10:17 AM EST documented as of this encounter Care Teams Head Of Ict Relationship Specialty Start Date End Date Shereen Latham MD [address] [place] [address] PCP - General Family Medicine 11/02/18 Nupur Bullock, CharleneD [address] [place] [address] Pharmacist Internal Medicine 08/09/24 Sury Benitez [address] [place] [address] [place] [address] Pulmonary Disease 09/27/24 Nirali Madrid OD [address] [place] [address] Optometry 10/27/24 Li Grande MD [address] [place] [address] Hematology and Oncology 10/27/24 Anselmo Gtaes MD [address] [place] [address] Orthopaedic Surgery 10/27/24 Margaret Holman [address] [facility] [address] 3rd [place] [address] Cardiology 10/27/24 Herberth Stokes MD [address] [facility] [address]rd [place] [address] Gastroenterology 10/27/24 Hilton Palacios MD 15 [facility], [address] [place] [address] Neurology 02/06/25 Pily Delanye Customer Service AdministratorDistribution Warehouse Manager 07/22/24 Elie Vicky [facility] 12/29/24 documented as of this encounter
--- OUTSIDE RECORDS SUMMARY | 2025-02-27 17:10 | XMS_ITS | Encounter Summary ---
Author Organization [employer] Address 75 [facility] 7t [place] [address] Care Team Providers Care Pilot Instructor Name Role Phone Shereen Latham MD Primary Care Provider [phone] Nupur Bullock PharmD Unavailable Sury Benitez Unavailable [phone] Nirali Madrid OD Unavailable [phone] Li Grande MD Unavailable [phone] Anselmo Gates MD Unavailable Margaret Holman Unavailable Herberth Stokes MD Unavailable [phone] Hilton Palacios MD Unavailable [phone] Encounter Details Date Type Department Care Team (Late st Contact Info) Description 11/16/2022 Abstract [facility] MEDICINE 230 [place], [place] [phone] Shereen Latham MD 230 [place], [place] [phone] Social History Tobacco Use Types Packs/Day Years [...] 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 Per Dr. Krish Loomis's note from [facility] AGRICULTURAL CONSULTANT, pt was due for repeat colposcopy [...] Problem(s): Hyperaldosteronism (CMS/HCC) (Resolved 07/29/2023) Seen by [facility] Endocrinology 04/03/2022. Initially seen 12/2021 for hyperaldosteronism. Labs [facility] 10/2021 aldosterone 8, plasma renin 0.11, aldosterone/renin 72.7. She was likely on spironolactone and lisinopril at time of labs. Advise no spironolactone for 6 weeks and recheck renin aldosterone levels with renal panel and magnesium in reciprocating drill operator. * Assessment & Plan Note - [...] sound for abdominal pain at [facility]. Ultrasound showed diffusely echogenic parenchyma with focal sparing around the gallbladder. No suspicious lesions. Impression showed liver likely representing hepatic steatosis and non- obstructing right kidney stone. documented in this encounter Plan of Treatment Upcoming Encounters Date Type Department Care Team (Late st Contact Info) Description 03/02/2025 11:15 AM EDT Office Visit [facility] [address] [place] [address] Shereen Latham MD [address] [place] [address] 03/29/2025 2:00 PM EDT Office Visit [facility] ADULT DENTAL [address] [place] [address] Heidi, Jenny [address] [place] [address] 04/25/2025 2:30 PM EDT Medication Management [facility] [address] [place] [address] Nupur Bullock PharmD [address] [place] [address] 04/26/2025 9:30 AM EDT Office Visit [address] [address] Shereen Latham MD [address] [place] [address] documented as of this encounter Visit Diagnoses Not on filedocumented in this encounter Care Teams Pilot Instructor Relationship Specialty Start Date End Date Shereen Latham MD [address] [place] [address] PCP - General Family Medicine 11/02/18 Nupur Bullock, PharmD [address] [place] [address] Pharmacist Internal Medicine 08/09/24 Sury Benitez [address] [place] [address] [place] [address] Pulmonary Disease 09/27/24 Nirali Madrid OD [address] [place] [address] Optometry 10/27/24 Li Grande MD [address] [place] [address] Hematology and Oncology 10/27/24 Anselmo Gates MD [address] [place] [address] Orthopaedic Surgery 10/27/24 Margaret Holman [address] [facility] [address] 3rd [place] [address] Cardiology 10/27/24 Herberth Stokes MD [address] [facility] [address] 3rd [place] [address] Gastroenterology 10/27/24 Hilton Palacios MD 15 [facility], [address] [place] [address] Neurology 02/06/25 Pily Delaney Fur Machine OperatorOffice Services Coordinator 07/22/24 Elie Vicky [facility] 12/29/24 documented as of this encounter
--- OUTSIDE RECORDS SUMMARY | 2025-02-27 17:10 | XMS_ITS | Encounter Summary ---
Author Organization [employer] Address 75 [facility] 7t [place] [address] Care Team Providers Care Commercial Relationship Manager Name Role Phone Shereen Latham MD Primary Care Provider [phone] Nupur Bullock PharmD Unavailable [phone] Sury Benitez Unavailable [phone] Nirali Madrid OD Unavailable [phone] Li Grande MD Unavailable [phone] Anselmo Gates MD Unavailable Margaret Holman Unavailable Herberth Stokes MD Unavailable [phone] Hilton Palacios MD Unavailable [phone] Encounter Details Date Type Department Care Team (Latest Contact Info) Description 08/16/2021 Abstract [facility] CONVERSIONS Dental, [...] 03/02/2025 11:15 AM EDT Office Visit [facility] MEDICINE [address] [place] [address] Shereen Latham MD 230 [place] [address] 03/29/2025 2:00 PM EDT Office Visit [facility] ADULT DENTAL [address] [place] [address] Heidi, Jenny 230 [place] [address] 04/25/2025 2:30 PM EDT Medication Management [facility] MEDICINE [address] [place] [address] Nupur Bullock Pharm[facility]ok[place] [address] [place] [address] 04/26/2025 9:30 AM EDT Office Visit [address] [address] Shereen Latham MD [address] [place] [address] documented as of this encounter Visit Diagnoses Not on filedocumented in this encounter Care Teams Commercial Relationship Manager Relationship Specialty Start Date End Date Shereen Latham MD [address] [place] [address] PCP - General Family Medicine 11/02/18 Nupur Bullock, CharleneD [address] [place] [address] Pharmacist Internal Medicine 08/09/24 Sury Benitez [address] [place] [address] [place] [address] Pulmonary Disease 09/27/24 Nirali Madrid OD [address] [place] [address] Optometry 10/27/24 Li Grande MD 575 [place] [address] Hematology and Oncology 10/27/24 Anselmo Gates MD [address] [place] [address] Orthopaedic Surgery 10/27/24 Margaret Holman [address] 3rd [place] [address] Cardiology 10/27/24 Herberth Stokes MD 11 [facility] 3rd [place] [address] Gastroenterology 10/27/24 Hilton Palacios MD 15 [facility], [address] [place] [address] Neurology 02/06/25 Pily Delaney Flame BurnerClaims Adjuster 07/22/24 Elie Vicky [facility] 12/29/24 documented as of this encounter
--- OUTSIDE RECORDS SUMMARY | 2025-02-27 17:10 | XMS_ITS | Encounter Summary ---
Author Organization [employer] Address 75 [facility] 7t [place] [address] Care Team Providers Care Multicut Line Operator Name Role Phone Shereen Latham MD Primary Care Provider Nupur Bullock PharmD Unavailable [phone] Sury Benitez Unavailable [phone] Nirali Madrid OD Unavailable [phone] Li Grande MD Unavailable [phone] Anselmo Gates MD Unavailable Margaret Holman Unavailable Hebrerth Stokes MD Unavailable [phone] Hilton Palacios MD Unavailable Encounter Details Date Type Department Care Team (Late st Contact Info) Description 02/09/2025 Orders Only [facility] External Provider, [facility] Heart failure with preserved ejection fraction, unspecified HF chronicity (CMS/HCC) (Primary Dx) Social History Tobacco Use Types [...] Description 03/02/2025 11:15 AM EDT Office Visit [facility] MEDICINE 230 [place] [address] Shereen Latham MD 230 [place] [address] 03/29/2025 2:00 PM EDT Office Visit [facility] ADULT DENTAL 230 [place] [address] Heidi, Jenny [address] [place] [address] 04/25/2025 2:30 PM EDT Medication Management [facility] [place] [place] [address] Nupur Bullock, CharleneD 230 [facility] [place] [address] 04/26/2025 9:30 AM EDT Office Visit [facility] [address] [place] [address] Shereen Latham MD [address] [place] [address] documented as of this encounter Procedures Procedure Name Priority Date/Time Associated Diagnosis Comments STRESS TEST WITH MYOCARDIAL PERFUSION Routine 02/09/2025 9:30 AM EDT documented in this encounter Results * Stress test with myocardial perfusion (02/09/2025 9:30 AM EDT) 02/09/2025 9:30 AM EDT [facility] IMAGING - 02/24/2025 11:11 AM EDT ? [facility] ?[address] ?[place] [address] ?Nuclear Medicine Report ? Signed ? Patient: Cast,Azra ?MR#: [id number] ?? [id number] ? : 1975 ?Acct:[id number] ? Age/Sex: 49 / F ?ADM Date: 04/10/25 ? Loc: HO.CARD ? Attending Dr: Margaret Holman ARTIST AGENT-C ? Ordering Physician: Margaret Holman ARTIST AGENT-C ?? Date of Service: 02/09/25 ?? Procedure(s): NM cardiolite stress test ?? Accession Number(s): [id number] ? cc: Shereen Latham MD; Margaret Holman [...] Cano MD ??02/24/2025 11:08 ?? AM EDT RP ? Dictated By: ?Stevie Cano MD ? Signed By: ?<Electronically signed by Stevie Cano MD in OV> ?02/24/258 ? DD/ 9 ? TD/TT: 02/22/25 1215 ? Vp Security: ? Procedure Note Gypsy Jonas - 02/24/[address] [address] Nuclear Medicine Report Signed Patient: Maged Cast#: [id number] : 1975Acct:[id number] Age/Sex: 49 / FADM Date: 02/09/25 Loc: [facility] Attending Dr: Margaret ALMANZA Ordering Physician: Margaret Holman Date of Service: 02/09/25 Procedure(s): NM cardiolite stress test Accession Number(s): [id number] cc: Shereen Latham MD; Margaret Holman EXERCISE [...] 02/24/25 1108 DD/ 0930 TD/TT: 02/22/25 1215 Vp Security: [facility] External Provider CV STRE SS PROCEDURES Edited Result - Final [facility] [address] [place] [address] documented in this encounter Visit Diagnoses Diagnosis Heart failure with preserved ejection fraction, unspecified HF chronicity (CMS/HCC)- Primary documented in this encounter Additional Health Concerns Assessment Noted Time PHQ-9 Depression Total Score: 22 025 10:17 AM EST documented as of this encounter Care Teams Multicut Line Operator Relationship Specialty Start Date End Date Shereen Latham MD 230 [place] [address] PCP - General Family Medicine 11/02/18 Nupur Bullock, CharleneD 230 [place] [address] Pharmacist Internal Medicine 08/09/24 Sury Benitez [address] [place] [address] Dr [address] [place] [address] Pulmonary Disease 09/27/24 Nirali Madrid OD [address] [place] [address] Optometry 10/27/24 Li Grande MD 575 [place] [address] Hematology and Oncology 10/27/24 Anselmo Gates MD [address] [place] [address] Orthopaedic Surgery 10/27/24 Margaret Holman [address] 3rd [place] [address] Cardiology 10/27/24 Herberth Stokes MD [address] [facility] [address] 3rd [place] [address] Gastroenterology 10/27/24 Hilton Palacios MD [address] [place] [address], [address] [place] [address] Neurology 02/06/25 Pily Delaney Telecommunication Equipment RepairerAssistant Sales Center Manager 07/22/24 Elie BRASHER [facility] Psychology 12/29/24 documented as of this encounter
--- OUTSIDE RECORDS SUMMARY | 2025-02-27 17:10 | XMS_ITS | Encounter Summary ---
Author Organization [employer] Address 75 [facility] 7t [place] [address] Care Team Providers Care Billing Services Manager Name Role Phone Shereen Latham MD Primary Care Provider [phone] Nupur Bullock PharmD Unavailable Sury Benitez Unavailable [phone] Nirali Madrid OD Unavailable Li Grande MD Unavailable [phone] Anselmo Gates MD Unavailable Margaret Holman Unavailable Herberth Stokes MD Unavailable [phone] Hilton Palacios MD Unavailable [phone] Reason for Visit * Reason Onset Date Comments Nurse Triage 05/25/2024 Encounter Details Date Type Department Care Team (Late st Contact Info) Description 05/25/2024 Telephone [facility] [address] [place], [place] [phone] Shereen Latham MD 230 [place], [place] [phone] Nurse Triage Social History Tobacco Use Types [...] . Pt reports Pt was seen in [facility] 05/11/24 for continued leftfoot pain and Pt was seen by package liner, Leta Lunsford MD 05/11/24 also (report is on the chart). Pt had been advised to stop BP med chlorthalidone per package liner [facility] because that particular medication [...] anxiety. Pt is advised to come to [facility] today , open till 8pm, to [...] EDT Office Visit [facility] [address] [place] [address] Shereen Latham MD 230 [place] [address] 03/29/2025 2:00 PM EDT Office Visit [facility] ADULT DENTAL 230 [place] [address] Heidi, Jenny 230 [place] [address] 04/25/2025 2:30 PM EDT Medication Management [facility] [address] [place] [address] Nupur Bullock PharmD [address] [place] [address] 04/26/2025 9:30 AM EDT Office Visit [address] [address] Shereen Latham MD [address] [place] [address] documented as of this encounter Visit Diagnoses Not on filedocumented in this encounter Additional Health Concerns Assessment Noted Time PHQ-9 Depression Total Score: 22 024 9:12 AM EDT documented as of this encounter Care Teams Billing Services Manager Relationship Specialty Start Date End Date Shereen Latham MD [address] [place] [address] PCP - General Family Medicine 11/02/18 Nupur Bullock, PharmD [address] [place] [address] Pharmacist Internal Medicine 08/09/24 Sury Benitez [address] [place] [address] [facility] [place] [address] Pulmonary Disease 09/27/24 Nirali Madrid OD [address] [place] [address] Optometry 10/27/24 Li Grande MD 575 [place] [address] Hematology and Oncology 10/27/24 Anselmo Gates MD [address] [facility] [address] [place] [address] Orthopaedic Surgery 10/27/24 Margaret Holman [address] [facility] 3rd [place] [address] Cardiology 10/27/24 Herberth Stokes MD [address] [facility] 3rd [place] [address] Gastroenterology 10/27/24 Hilton Palacios MD 15 [facility], [address] [place] [address] Neurology 02/06/25 Pily Delaney Pig Machine Crane OperatorDesign Printing Machine Setter 07/22/24 Elie Vicky [facility] 12/29/24 documented as of this encounter
--- OUTSIDE RECORDS SUMMARY | 2025-02-27 17:10 | XMS_ITS | Encounter Summary ---
Author Organization [employer] Address 75 [facility] 7t [place] [address] Care Team Providers Care Drying Machine Operator Name Role Phone Shereen Latham MD Primary Care Provider Nupur Bullock PharmD Unavailable [phone] Sury Benitez Unavailable [phone] Nirali Madrid OD Unavailable Li Grande MD Unavailable [phone] Anselmo Gates MD Unavailable Margaret Holman Unavailable Herberth Stokes MD Unavailable [phone] Hilton Palacios MD Unavailable Reason for Referral * Imaging (Routine) - Closed Specialty Diagnoses / Procedures Referred By Walter nelson Referred To Contact Radiology Diagnoses Breast pain, left Procedures BI Mammogram Diagnostic Tomosynthesis Left Stacey Khan MD 230 [place] [address] Phone: tel: fax: [facility] [address] [place] [address] Phone: tel: fax: Referral ID Status Reason Start Date Expiration Date Visits Re quested Visits Authorized [id number] Closed 01/19/2025 01/19/2026 1 1 * Imaging (Routine) - Closed Specialty Diagnoses / Procedures Referred By Walter nelson Referred To Contact Radiology Diagnoses Breast pain, left Procedures BI US Breast Limited Left Stacey Khan MD [address] [place] [address] Phone: tel: fax: [address] Phone: tel: fax: Referral ID Status Reason Start Date Expiration Date Visits Re quested Visits Authorized [id number] Closed 01/19/2025 01/19/2026 1 1 Encounter Details Date Type Department Care Team (Late st Contact Info) Description 01/19/2025 Orders Only [facility] MEDICINE 230 [place] [address] Stacey Khan MD [address] [place], [place] [phone] Breast pain, left (Primary Dx); History of [...] [facility] MEDICINE [address] [place] [address] Shereen Latham MD [address] [place] [address] 03/29/2025 2:00 PM EDT Office Visit [facility] ADULT DENTAL [address] [place] [address] Jenny Gordon [address] [place] [address] 04/25/2025 2:30 PM EDT Medication Management [facility] MEDICINE [address] [place] [address] Nupur Bullock, PharmD [address] [place] [address] 04/26/2025 9:30 AM EDT Office Visit [facility] MEDICINE [address] [place] [address] Shereen Latham MD [address] [place] [address] documented as of this encounter Procedures Procedure [...] EDT Narrative 02/23/2025 1:08 PM EDT ? [facility] ? [address] ?[place] [address] ? Ultrasound Report ? Signed ? Patient: Azra Cast ?MR#: [id number] ?? [id number] ? : 1975 ?Acct:[id number] ? Age/Sex: 49 / F ?ADM Date: 02/23/25 ? Loc: HO.MAMMO ? Attending Dr: Stacey Khan MD ? Ordering Physician: Stcaey Khan MD ?? Date of Service: 02/23/25 ?? Procedure(s): US breast LT limited mamm only ?? Accession Number(s): [id number] ? cc: Shereen Latham MD; Stacey Khan [...] BI-RADS breast ?? composition Category b). ?? Pavilion marker in the upper outer breast area [...] DD/ 1215 ? TD/TT: 02/23/25 1237 ? Urology Physician: ? Procedure Note Sumi, Image - 02/23/2025 [facility] [address] [place] [address] Ultrasound Report Signed Patient: Maged Cast#: [id number] : 1975Acct:[id number] Age/Sex: 49 / FADM Date: 02/23/25 Loc: HO.MAMMO Attending Dr: Stacey Khan MD Ordering Physician: Stacey Khan MD Date of Service: 02/23/25 Procedure(s): US breast LT limited mamm only Accession Number(s): [id number] cc: Shereen Latham MD; Stacey Khan MD [...] density (ACR BI-RADS breast composition Category b). Pavilion marker in the upper outer breast area [...] 02/23/25 1306 DD/ 1215 TD/TT: 02/23/25 1237 Urology Physician: us Stacey Khan MD IMG US PROCEDURES Final Result * BI Mammogram Diagnostic Tomosynthesis Left (02/23/2025 11:40 AM EDT) Anatomical Region Laterality Modality Breast Left Mammography 02/23/2025 11:4 0 AM EDT Narrative 02/23/2025 1:08 PM EDT ? [facility] ? [address] ?[place], [place] [address] ?[phone] ? Mammography Report ? Signed ? Patient: Cast,Azra ?MR#: [id number] ?? [id number] ? : 1975 ?Acct:[id number] ? Age/Sex: 49 / F ?ADM Date: 02/23/25 ? Loc: HO.MAMMO ? Attending Dr: Stacey Khan MD ? Ordering Physician: Stacey Khan MD ?Results: 4Suspicio ?? us Finding ? Date of Service: 02/23/25 ?Follow Up: Biopsy Recommend ?? ed ? Procedure(s): MM tomosynthesis diagnostic LT ?? Accession Number(s): [id number] ? cc: Shereen Latham MD; Stacey Khan [...] BI-RADS breast ?? composition Category b). ?? Pavilion marker in the upper outer breast area [...] DD/ 1140 ? TD/TT: 02/23/25 1150 ? Urology Physician: ? Procedure Note Donotuseinterpreter, Image - 02/23/2025 [facility] [address] [place] [address] Mammography Report Signed Patient: Maged Cast#: [id number] : 1975Acct:[id number] Age/Sex: 49 / FADM Date: 02/23/25 Loc: HO.MAMMO Attending Dr: Stacey Khan MD Ordering Physician: Stacey Khan MDResults: 4Suspicio us Finding Date of Service: 02/23/25Follow Up: Biopsy Recommend ed Procedure(s): MM tomosynthesis diagnostic LT Accession Number(s): [id number] cc: Shereen Latham MD; Stacey Khan MD [...] density (ACR BI-RADS breast composition Category b). Pavilion marker in the upper outer breast area [...] DO 02/23/2025 01:06 PM EDT RP Workstation: [employer] Dictated By: Cara Rodriges DO Signed By: <Electronically signed by Cara Rodriges DO in OV> 02/23/25 1306 DD/ 1140 TD/TT: 02/23/25 1150 Urology Physician: Stacey Khan MD IMG BI PROCEDURES Final Result documented in this encounter Visit Diagnoses Diagnosis Breast pain, left- Primary History of right breast cancer documented in this encounter Additional Health Concerns Assessment Noted Time PHQ-9 Depression Total Score: 22 025 10:17 AM EST documented as of this encounter Care Teams Drying Machine Operator Relationship Specialty Start Date End Date Shereen Latham MD [address] [place] [address] PCP - General Family Medicine 11/02/18 Nupur Bullock, Pushpa [address] [place] [address] Pharmacist Internal Medicine 08/09/24 Sury Benitez [address] [place] [address] [place] [address] [place] [address] Pulmonary Disease 09/27/24 Nirali Madrid OD [address] [place] [address] Optometry 10/27/24 Li Grande MD 575 [place] [address] Hematology and Oncology 10/27/24 Anselmo Gates MD [address] [facility] [address] [facility] [address] [place] [address] Orthopaedic Surgery 10/27/24 Margaret Holman [address] 3rd [place] [address] Cardiology 10/27/24 Herberth Stokes MD 11 [facility] 3rd [place] [address] Gastroenterology 10/27/24 Hilton Palacios MD 15 [facility], [address] [place] [address] Neurology 02/06/25 Pily Delaney Skip PitmanResearch Food Technologist 07/22/24 Elie Vicky [facility] 12/29/24 documented as of this encounter
--- OUTSIDE RECORDS SUMMARY | 2025-02-27 17:10 | XMS_ITS | Encounter Summary ---
Author Organization [employer] Address 75 [facility] 7t [place] [address] Care Team Providers Care Wing Commander Name Role Phone Shereen Latham MD Primary Care Provider [phone] Nupur Bullock PharmD Unavailable Sury Benitez Unavailable [phone] Nirali Madrid OD Unavailable [phone] Li Grande MD Unavailable [phone] Anselmo Gates MD Unavailable Margaret Holman Unavailable Herberth Stokes MD Unavailable [phone] Hilton Palacios MD Unavailable Encounter Details Date Type Department Care Team (Late st Contact Info) Description 10/22/2023 Orders Only [facility] MEDICINE 230 [place] [address] Shereen Latham MD [address] [place], [place] [phone] Vitamin D deficiency Social History Tobacco Use [...] Office Visit [facility] MEDICINE [address] [place] [address] Shereen Latham MD 230 [place] [address] 03/29/2025 2:00 PM EDT Office Visit [facility] ADULT DENTAL [address] [place] [address] [phone] Jenny Gordon 230 [place] [address] 04/25/2025 2:30 PM EDT Medication Management [facility] MEDICINE [address] [place] [address] Nupur Bullock PharmD 230 [place] [address] 04/26/2025 9:30 AM EDT Office Visit [facility] MEDICINE 230 [place] [address] Shereen Latham MD 230 [place] [address] documented as of this encounter Visit Diagnoses Diagnosis Vitamin D deficiency documented in this encounter Additional Health Concerns Assessment Noted Time PHQ-9 Depression Total Score: 21 023 10:42 AM EST documented as of this encounter Care Teams Wing Commander Relationship Specialty Start Date End Date Shereen Latham MD [address] [place] [address] PCP - General Family Medicine 11/02/18 Nupur Bullock, CharleneD [address] [place] [address] Pharmacist Internal Medicine 08/09/24 Sury Benitez [address] [place] [address] Dr [facility] 103 [place] [address] Pulmonary Disease 09/27/24 Nirali Madrid OD 267 [place] [address] Optometry 10/27/24 Li Grande MD 575 [place] [address] Hematology and Oncology 10/27/24 Anselmo Gates MD [address] [place] [address] Orthopaedic Surgery 10/27/24 Margaret Holman [address] 3rd [place] [address] Cardiology 10/27/24 Herberth Stokes MD [address] 3rd [place] [address] Gastroenterology 10/27/24 Hilton Palacios MD [address] [place] [address], [address] [place] [address] Neurology 02/06/25 Pily Delaney Building Maintenance SupervisorColor Buffer 07/22/24 Elie BRASHER [facility] 12/29/24 documented as of this encounter
--- OUTSIDE RECORDS SUMMARY | 2025-02-27 17:10 | XMS_ITS | Encounter Summary ---
Author Organization [employer] Address 75 [facility] 7t [place] [address] Care Team Providers Care Committee Member Name Role Phone Shereen Latham MD Primary Care Provider [phone] Nupur Bullock PharmD Unavailable Sury Benitez Unavailable [phone] Nirali Madrid OD Unavailable Li Grande MD Unavailable [phone] Anselmo Gates MD Unavailable Margaret Holman Unavailable Herberth Stokes MD Unavailable [phone] Hilton Palacios MD Unavailable Reason for Visit * Reason Comments Med Refill Encounter Details Date Type Department Care Team (Late st Contact Info) Description 06/21/2024 Refill [facility] PEDS [address] [place], [place] [phone] Shereen Latham MD 230 [place] [address] Mild intermittent asthma, unspecified whether complicated; Pain [...] Description 03/02/2025 11:15 AM EDT Office Visit [facility] MEDICINE [address] [place] [address] Shereen Latham MD [address] [place] [address] 03/29/2025 2:00 PM EDT Office Visit [facility] ADULT DENTAL [address] [place] [address] Heidi, Jenny [address] [place] [address] 04/25/2025 2:30 PM EDT Medication Management [facility] MEDICINE [address] [place] [address] Nupur Bullock PharmD [address] [place] [address] 04/26/2025 9:30 AM EDT Office Visit [facility] MEDICINE [address] [place] [address] Shereen Latham MD [address] [place] [address] documented as of this encounter Visit Diagnoses Diagnosis Mild intermittent asthma, unspecified whether complicated Pain Generalized pain documented in this encounter Additional Health Concerns Assessment Noted Time PHQ-9 Depression Total Score: 13 024 4:53 PM EDT documented as of this encounter Care Teams Committee Member Relationship Specialty Start Date End Date Shereen Latham MD [address] [place] [address] PCP - General Family Medicine 11/02/18 Nupur Bullock PharmD [address] [place] [address] Pharmacist Internal Medicine 08/09/24 Sury Benitez [address] [place] [address] [address] [place] [address] Pulmonary Disease 09/27/24 JuliusNirali quigley OD 267 [place] [address] Optometry 10/27/24 Li Grande MD [address] [place] [address] Hematology and Oncology 10/27/24 Anselmo Gates MD [address] [place] [address] Orthopaedic Surgery 10/27/24 Margaret Holman [address] 3rd [place] [address] Cardiology 10/27/24 Herberth Stokes MD 11 [facility] 3rd [place] [address] Gastroenterology 10/27/24 Hilton Palacios MD 15 [facility], [address] [place] [address] Neurology 02/06/25 Pily Delaney [employer] Machine FeederSales And Service Specialist 07/22/24 Elie Vicky [facility] 12/29/24 documented as of this encounter
--- OUTSIDE RECORDS SUMMARY | 2025-02-27 17:10 | XMS_ITS | Encounter Summary ---
Author Organization [employer] Address 75 [facility] 7t [place] [address] Care Team Providers Care Provider Relations Advocate Name Role Phone Shereen Latham MD Primary Care Provider [phone] Nupur Bullock PharmD Unavailable Sury Benitez Unavailable [phone] Nirali Madrid OD Unavailable Li Grande MD Unavailable [phone] Anselmo Gates MD Unavailable Margaret Holman Unavailable Herberth Stokes MD Unavailable [phone] Hilton Palacios MD Unavailable Encounter Details Date Type Department Care Team (Late st Contact Info) Description 05/02/2024 Orders Only [facility] MEDICINE 230 [place], [place] [phone] Shereen Latham MD 230 [place], [place] [phone] Gout, unspecified cause, unspecified chronicity, unspecified site [...] Description 03/02/2025 11:15 AM EDT Office Visit [facility] MEDICINE 230 [place] [address] Shereen Latham MD 230 [place] [address] 03/29/2025 2:00 PM EDT Office Visit [facility] ADULT DENTAL [address] [place] [address] Jeramie Gordonaris 230 [place] [address] 04/25/2025 2:30 PM EDT Medication Management [facility] MEDICINE [address] [place] [address] Nupur Bullock, PharmD [address] [place] [address] 04/26/2025 9:30 AM EDT Office Visit [facility] MEDICINE [address] [place] [address] Shereen Latham MD [address] [place] [address] documented as of this encounter Visit Diagnoses Diagnosis Gout, unspecified cause, unspecified chronicity, unspecified site- Primary documented in this encounter Additional Health Concerns Assessment Noted Time PHQ-9 Depression Total Score: 23 024 1:45 PM EDT documented as of this encounter Care Teams Provider Relations Advocate Relationship Specialty Start Date End Date Shereen Latham MD [address] [place] [address] PCP - General Family Medicine 11/02/18 Nupur Bullock, CharleneD [address] [place] [address] Pharmacist Internal Medicine 08/09/24 Sury Benitez [address] [place] [address] [place] [address] Pulmonary Disease 09/27/24 Nirali Madrid OD [address] [place] [address] Optometry 10/27/24 Li Grande MD [address] [place] [address] Hematology and Oncology 10/27/24 Anselmo Gates MD [address] [facility] [address] [place] [address] Orthopaedic Surgery 10/27/24 Margaret Holman [address] [facility] [address] 3rd [place] [address] Cardiology 10/27/24 Herberth Stokes MD [address] [facility] [address] 3rd [place] [address] Gastroenterology 10/27/24 Hilton Palacios MD 15 [facility], [address] [place] [address] Neurology 02/06/25 Pily Delaney Feeder CatcherWater Plant Operator 07/22/24 Elie Vicky [facility] 12/29/24 documented as of this encounter
--- OUTSIDE RECORDS SUMMARY | 2025-02-27 17:10 | XMS_ITS | Encounter Summary ---
Author Organization [employer] Address 75 [facility] 7t [place] [address] Care Team Providers Care Winch Driver Name Role Phone Shereen Latham MD Primary Care Provider [phone] Nupur Bullock PharmD Unavailable Sury Benitez Unavailable [phone] Nirali Madrid OD Unavailable Li Grande MD Unavailable [phone] Anselmo Gates MD Unavailable Margaret Holman Unavailable Herberth Stokes MD Unavailable [phone] Hilton Palacios MD Unavailable Encounter Details Date Type Department Care Team (Late st Contact Info) Description 07/27/2023 Orders Only [facility] MEDICINE 230 [place], [place] [phone] Shereen Latham MD 230 [place], [place] [phone] Hypomagnesemia Social History Tobacco Use Types Packs/Day [...] Description 03/02/2025 11:15 AM EDT Office Visit [facility] MEDICINE [address] [place] [address] Shereen Latham MD [address] [place] [address] 03/29/2025 2:00 PM EDT Office Visit [facility] ADULT DENTAL [address] [place] [address] Heidi, Jenny 230 [place] [address] 04/25/2025 2:30 PM EDT Medication Management [facility] MEDICINE [address] [place] [address] Nupur Bullock PharmD [address] [place] [address] 04/26/2025 9:30 AM EDT Office Visit [address] [address] Shereen Latham MD [address] [place] [address] documented as of this encounter Visit Diagnoses Diagnosis Hypomagnesemia Disorders of magnesium metabolism documented in this encounter Additional Health Concerns Assessment Noted Time PHQ-9 Depression Total Score: 10 023 10:27 AM EDT documented as of this encounter Care Teams Winch Driver Relationship Specialty Start Date End Date Shereen Latham MD [address] [place] [address] PCP - General Family Medicine 11/02/18 Nupur Bullock PharmD 230 [place] [address] Pharmacist Internal Medicine 08/09/24 Sury Benitez 10 [facility] [address] [place] [address] Pulmonary Disease 09/27/24 Julius Nirali SUSAN 267 [place] [address] Optometry 10/27/24 Li Grande MD [address] [place] [address] Hematology and Oncology 10/27/24 Anselmo Gatse MD 10 [facility] [address] [place] [address] Orthopaedic Surgery 10/27/24 Margaret Holman 11 [facility] 3rd [place] [address] Cardiology 10/27/24 Herberth Stokes MD 11 [facility] 3rd [place] [address] Gastroenterology 10/27/24 Hilton Palacios MD 15 [facility], [address] [place] [address] Neurology 02/06/25 Pily Delaney Monitoring CoordinatorMotor Driver 07/22/24 Elie Vicky [facility] 12/29/24 documented as of this encounter
--- OUTSIDE RECORDS SUMMARY | 2025-02-27 17:10 | XMS_ITS | Encounter Summary ---
Author Organization [employer] Address 75 [facility] 7t [place] [address] Care Team Providers Care Clinical Product Specialist Name Role Phone Shereen Latham MD Primary Care Provider +[phone]- [phone] Nupur Bullock PharmD Unavailable [phone] Sury Benitez Unavailable [phone] Nirali Madrid OD Unavailable Li Graned MD Unavailable [phone] Anselmo Gates MD Unavailable Margaret Holman Unavailable Herberth Stokes MD Unavailable [phone] Hilton Palacios MD Unavailable Reason for Visit * Reason Onset Date Comments Medication Question 08/25/2024 Encounter Details Date Type Department Care Team (Late st Contact Info) Description 08/25/2024 Telephone [facility] MEDICINE 230 [place], [place] [phone] Shereen Latham MD 230 [place], [place] [phone] Medication Question Social History Tobacco Use Types [...] any questions you can contact pt at [phone]. documented in this encounter Plan of Treatment Upcoming Encounters Date Type Department Care Team (Late st Contact Info) Description 03/02/2025 11:15 AM EDT Office Visit [facility] MEDICINE [address] [place] [address] Shereen Latham MD 230 [place] [address] 03/29/2025 2:00 PM EDT Office Visit [facility] ADULT DENTAL [address] [place] [address] Heidi, Jenny 230 [place] [address] 04/25/2025 2:30 PM EDT Medication Management [facility] MEDICINE [address] [place] [address] Nupur Bullock PharmD [address] [place] [address] 04/26/2025 9:30 AM EDT Office Visit [facility] MEDICINE [address] [place] [address] Shereen Latham MD [address] [place] [address] documented as of this encounter Visit Diagnoses Not on filedocumented in this encounter Additional Health Concerns Assessment Noted Time PHQ-9 Depression Total Score: 13 024 4:53 PM EDT documented as of this encounter Care Teams Clinical Product Specialist Relationship Specialty Start Date End Date Shereen Latham MD [address] [place] [address] PCP - General Family Medicine 11/02/18 Nupur Bullock, PharmD [address] [place] [address] Pharmacist Internal Medicine 08/09/24 Sury Benitez [address] [facility] [address] [place] [address] Pulmonary Disease 09/27/24 Nirali Madrid OD 267 [place] [address] Optometry 10/27/24 Li Grande MD [address] [place] [address] Hematology and Oncology 10/27/24 Anselmo Gates MD [address] [place] [address] Orthopaedic Surgery 10/27/24 Margaret Holman [address] 3rd [place] [address] Cardiology 10/27/24 Herberth Stokes MD 11 [facility] 3rd [place] [address] Gastroenterology 10/27/24 Hilton Palacios MD 15 [facility], [address] [place] [address] Neurology 02/06/25 Pily Delaney Controls DesignerMine Development Engineer 07/22/24 Elie Vicky [facility] 12/29/24 documented as of this encounter
--- OUTSIDE RECORDS SUMMARY | 2025-02-27 17:10 | XMS_ITS | Encounter Summary ---
Author Organization [employer] Address [address] [facility] 7t [place] [address] Care Team Providers Care Certified Home Health Aide Name Role Phone Shereen Latham MD Primary Care Provider [phone]- [phone] Nupur Bullock PharmD Unavailable Sury Benitez Unavailable [phone] Nirali Madrid OD Unavailable Li Grande MD Unavailable [phone] Anselmo Gates MD Unavailable Margaret Holman Unavailable Herberth Stokes MD Unavailable [phone] Hilton Palacios MD Unavailable Reason for Visit * Reason Onset Date Comments Nurse Triage 02/13/2025 Encounter Details Date Type Department Care Team (Late st Contact Info) Description 02/13/[address] [facility] MEDICINE 230 [place], [place] [phone] Shereen Latham MD 230 [place], [place] [phone] Nurse Triage Social History Tobacco Use Types [...] AM EDT Office Visit [facility] MEDICINE 230 [place] [address] Shereen Latham MD 230 [place] [address] 03/29/2025 2:00 PM EDT Office Visit [facility] ADULT DENTAL 230 [place] [address] Jenny Gordon 230 [place] [address] 04/25/2025 2:30 PM EDT Medication Management [facility] MEDICINE 230 [place] [address] Nupur Bullock PharmD 230 [place] [address] 04/26/2025 9:30 AM EDT Office Visit [facility] MEDICINE 230 [place] [address] Shereen Latham MD 230 [place] [address] documented as of this encounter Visit Diagnoses Not on filedocumented in this encounter Additional Health Concerns Assessment Noted Time PHQ-9 Depression Total Score: 22 025 10:17 AM EST documented as of this encounter Care Teams Certified Home Health Aide Relationship Specialty Start Date End Date Shereen Latham MD 230 [place] [address] PCP - General Family Medicine 11/02/18 Nupur Bullock, PharmD 230 [place] [address] Pharmacist Internal Medicine 08/09/24 Sury Benitez [address] [place] [address] [facility] 103 [place] [address] Pulmonary Disease 09/27/24 Nirali Madrid OD [address] [place] [address] Optometry 10/27/24 Li Grande MD 575 [place] [address] Hematology and Oncology 10/27/24 Anselmo Gates MD [address] [place] [address] Orthopaedic Surgery 10/27/24 Margaret Holman [address] 3rd [place] [address] Cardiology 10/27/24 Herberth Stokes MD [address] 3rd Floor [place] [address] Gastroenterology 10/27/24 Hilton Palacios MD [address] [place] [address], [address] [place] [address] Neurology 02/06/25 Pily Delaney Production TroubleshooterNut Grinder 07/22/24 Elie Vicky [facility] Psychology 12/29/24 documented as of this encounter
--- OUTSIDE RECORDS SUMMARY | 2025-02-27 17:10 | XMS_ITS | Encounter Summary ---
Author Organization [employer] Address 75 [facility] 7t [place] [address] Care Team Providers Care Nnps Name Role Phone Shereen Latham MD Primary Care Provider [phone]- [phone] Nupur Bullock PharmD Unavailable Sury Benitez Unavailable [phone] Nirali Madrid OD Unavailable [phone] Li Grande MD Unavailable [phone] Anselmo Gates MD Unavailable Margaret Holman Unavailable Herberth Stokes MD Unavailable [phone] Hilton Palacios MD Unavailable Reason for Visit * Reason Comments Med Refill Encounter Details Date Type Department Care Team (Late st Contact Info) Description 12/02/2022 Refill [facility] MEDICINE 230 [place], [place] [phone] Shereen Latham MD 230 [place], [place] [phone] Wheeze (Primary Dx); Pain Social History Tobacco [...] 03/02/2025 11:15 AM EDT Office Visit [facility] MEDICINE [address] [place] [address] Shereen Latham MD [address] [place] [address] 03/29/2025 2:00 PM EDT Office Visit [facility] ADULT DENTAL [address] [place] [address] Heidi, Jenny [address] [place] [address] 04/25/2025 2:30 PM EDT Medication Management [facility] MEDICINE [address] [place] [address] Nupur Bullock PharmD [address] [place] [address] 04/26/2025 9:30 AM EDT Office Visit [address] [address] Shereen Latham MD [address] [place] [address] documented as of this encounter Visit Diagnoses Diagnosis Wheeze- Primary Wheezing Pain Generalized pain documented in this encounter Care Teams Nnps Relationship Specialty Start Date End Date Shereen Latham MD [address] [place] [address] PCP - General Family Medicine 11/02/18 Nupur Bullock PharmD [address] [place] [address] Pharmacist Internal Medicine 08/09/24 Sury Benitez [address] [place] [address] [address] [place] [address] Pulmonary Disease 09/27/24 JuliusNirali castellanos OD 267 [place] [address] Optometry 10/27/24 Li Grande MD [address] [place] [address] Hematology and Oncology 10/27/24 Anselmo Gates MD [address] [place] [address] Orthopaedic Surgery 10/27/24 Margaret Holman [address] 3rd [place] [address] Cardiology 10/27/24 Herberth Stokes MD 11 [facility] 3rd [place] [address] Gastroenterology 10/27/24 Hilton Palacios MD 15 [facility], [address] [place] [address] Neurology 02/06/25 Pily Delaney Environmental Research Project ManagerIt Communications Specialist 07/22/24 Elie Vicky [facility] 12/29/24 documented as of this encounter
--- OUTSIDE RECORDS SUMMARY | 2025-02-27 17:10 | XMS_ITS | Encounter Summary ---
Author Organization [employer] Address 75 [facility] 7t [place] [address] Care Team Providers Care Wine Merchant Name Role Phone Shereen Latham MD Primary Care Provider [phone]- [phone] Nupur Bullock PharmD Unavailable Sury Benitez Unavailable [phone] Nirali Madrid OD Unavailable Li Grande MD Unavailable [phone] Anselmo Gates MD Unavailable Margaret Holman Unavailable Herberth Stokes MD Unavailable [phone] Hilton Palacios MD Unavailable Reason for Visit * Reason Onset Date Comments Nurse Triage 01/25/2024 Referral 01/25/2024 Encounter Details Date Type Department Care Team (Late st Contact Info) Description 01/25/2024 Telephone [facility] MEDICINE 230 [place], [place] [phone] Shereen Latham MD 230 [place], [place] [phone] Nurse Triage; Referral Social History Tobacco Use [...] vary. Pt wants to be referred to [facility] [address] [facility] [address] [place] [address]. Ad[employer]sed will send to team to review [...] 03/02/2025 11:15 AM EDT Office Visit [facility] MEDICINE [address] [place] [address] Shereen Latham MD 230 [place] [address] 03/29/2025 2:00 PM EDT Office Visit [facility] ADULT DENTAL [address] [place] [address] Jeramie Gordonaris 230 [place] [address] 04/25/2025 2:30 PM EDT Medication Management [facility] MEDICINE [address] [place] [address] Nupur Bullock PharmD 230 [place] [address] 04/26/2025 9:30 AM EDT Office Visit [facility] MEDICINE 230 [place] [address] Shereen Latham MD 230 [place] [address] documented as of this encounter Visit Diagnoses Not on filedocumented in this encounter Additional Health Concerns Assessment Noted Time PHQ-9 Depression Total Score: 21 023 10:42 AM EST documented as of this encounter Care Teams Wine Merchant Relationship Specialty Start Date End Date Shereen Latham MD 230 [place] [address] PCP - General Family Medicine 11/02/18 Nupur Bullock, CharleneD [address] [place] [address] Pharmacist Internal Medicine 08/09/24 Sury Benitez [address] [place] [address] [facility] 103 [place] [address] Pulmonary Disease 09/27/24 Nirali Madrid OD [address] [place] [address] Optometry 10/27/24 Li Grande MD [address] [place] [address] Hematology and Oncology 10/27/24 Anselmo Gates MD 10 [facility] [address] [place] [address] Orthopaedic Surgery 10/27/24 Margaret Holman 11 [facility] 3rd [place] [address] Cardiology 10/27/24 Herberth Stokes MD 11 [facility] 3rd [place] [address] Gastroenterology 10/27/24 Hilton Palacios MD [address] [place] [address], [address] [place] [address] Neurology 02/06/25 Pily Delaney Telesales SpecialistClin Application Specialist 07/22/24 Elie BRASHER [facility] Psychology 12/29/24 documented as of this encounter
--- OUTSIDE RECORDS SUMMARY | 2025-02-27 17:10 | XMS_ITS | Encounter Summary ---
Author Organization [employer] Address 75 [facility] 7t [place] [address] Care Team Providers Care Lodging Facilities Attendant Name Role Phone Shereen Latham MD Primary Care Provider Nupur Bullock PharmD Unavailable [phone] Sury Benitez Unavailable [phone] Nirali Madrid OD Unavailable Li Grande MD Unavailable [phone] Anselmo Gates MD Unavailable Margaret Holman Unavailable Herberth Stokes MD Unavailable [phone] Hilton Palacios MD Unavailable Reason for Referral * Consultation (Routine) - Closed Specialty Diagnoses / Procedures Referred By Walter nelson Referred To Contact Obstetrics and Gynecology Diagnoses Women's annual routine gynecological examination Stacey Khan MD 230 [place] [address] Phone: tel: fax: [facility] Women? s Services [address] 5[address] (Main Hospital Entrance) [place], [place] Phone: tel: fax: Referral ID Status Reason Start Date Expiration Date V isits Requested Visits Authorized [id number] Closed Specialty Services Required 01/19/2025 01/19/2026 9 9 Encounter Details Date Type Department Care Team (Late st Contact Info) Description 01/19/2025 Orders Only [facility] MEDICINE 230 [place] [address] Stacey Khan MD 230 [place], [place] [phone] Women's annual routine gynecological examination (Primary Dx) [...] 03/02/2025 11:15 AM EDT Office Visit [facility] MEDICINE [address] [place] [address] Shereen Latham MD [address] [place] [address] 03/29/2025 2:00 PM EDT Office Visit [facility] ADULT DENTAL [address] [place] [address] Heidi, Jenny 230 [place] [address] 04/25/2025 2:30 PM EDT Medication Management [address] [address] Nupur Bullock, PharmD [address] [place] [address] 04/26/2025 9:30 AM EDT Office Visit [address] [address] Shereen Latham MD [address] [place] [address] Scheduled Referrals Name Type Priority Associated Diagnoses [...] Sensitivity Troponin I (01/19/2025 4:33 PM EDT) [facility] TROPONIN I HIGH SENSITIVITY 7.8 <3.5 - 17.0 ng/L [facility] Comment:The Henriquez high sens itivity Troponin-I results should beused in conjunction with other diagnostic information suchas ECG, clinical observations and information, and patientsymptoms to aid in the diagnosis of ID. 01/19/2025 4:33 PM EDT 01/19/2025 4:34 PM EDT us Generic External Data Provider LAB BLOOD ORDERAB LES Final Result Performing Organization Address [facility]/ZIP Co de Phone Number [facility] [address] [place] [phone] * B Type Natriuretic Peptide (BNP) (01/19/2025 4:33 PM EDT) [facility] B Type Natriuretic Peptide 22 <100 pg/mL [facility] 01/19/2025 4:33 PM EDT 01/19/2025 4:34 PM EDT Huddle External Data Provider LAB BLOOD ORDERAB LES Final Result Performing Organization Address City/[facility]/ZIP Co de Phone Number [facility] [address] [place] [phone] * D Dimer High Sensitivity (01/19/2025 4:33 PM EDT) [facility] D Dimer High Sensitivity <150 NG/ML [facility] Comment:D-DIMER HS REFERENCE RANGENote: Our [...] Provider LAB BLOOD ORDERAB LES Final Result [facility] [address] [place] [address] [phone] documented in this encounter Visit Diagnoses Diagnosis Women's annual routine gynecological examination- Primary documented in this encounter Additional Health Concerns Assessment Noted Time PHQ-9 Depression Total Score: 22 025 10:17 AM EST documented as of this encounter Care Teams Lodging Facilities Attendant Relationship Specialty Start Date End Date Shereen Latham MD 230 [place] [address] PCP - General Family Medicine 11/02/18 Nupur Bullock, CharleneD 230 [place] [address] Pharmacist Internal Medicine 08/09/24 Sury Benitez [address] [place] [address] [address] [place] [address] Pulmonary Disease 09/27/24 Nirali Madrid, OD 267 [place] [address] Optometry 10/27/24 Li Grande MD 575 [place] [address] Hematology and Oncology 10/27/24 Anselmo Gates MD [address] [place] [address] Orthopaedic Surgery 10/27/24 Margaret Holman [address] 3rd [place] [address] Cardiology 10/27/24 Herberth Stokes MD [address] 3rd [place] [address] Gastroenterology 10/27/24 Hilton Palacios MD [address] [facility] [address], [address] [place] [address] Neurology 02/06/25 Pily Delaney Director Of Market ResearchFish Straightener 07/22/24 Elie Vicky [facility] 12/29/24 documented as of this encounter
--- OUTSIDE RECORDS SUMMARY | 2025-02-27 17:10 | XMS_ITS | Encounter Summary ---
Author Organization [employer] Address 75 [facility] 7t [place] [address] Care Team Providers Care Insurance Representative Name Role Phone Shereen Latham MD Primary Care Provider [phone]- [phone] Nupur Bullock PharmD Unavailable Sury Benitez Unavailable [phone] Nirali Madrid OD Unavailable Li Grande MD Unavailable [phone] Anselmo Gates MD Unavailable Margaret Holman Unavailable Herberth Stokes MD Unavailable [phone] Hilton Palacios MD Unavailable Encounter Details Date Type Department Care Team (Late st Contact Info) Description 04/26/2024 Orders Only [facility] MEDICINE 230 [place], [place] [phone] Junie Damon MD 230 [place], [place] [phone] Social History Tobacco Use Types Packs/Day Years [...] Description 03/02/2025 11:15 AM EDT Office Visit [facility] MEDICINE 230 [place] [address] Shereen Latham MD 230 [place] [address] 03/29/2025 2:00 PM EDT Office Visit [facility] ADULT DENTAL 230 [place] [address] Heidi, Jenny 230 [place] [address] 04/25/2025 2:30 PM EDT Medication Management [facility] MEDICINE [address] [place] [address] Nupur Bullock PharmD 230 [place] [address] 04/26/2025 9:30 AM EDT Office Visit [facility] MEDICINE [address] [place] [address] Shereen Latham MD [address] [place] [address] documented as of this encounter Visit Diagnoses Not on filedocumented in this encounter Additional Health Concerns Assessment Noted Time PHQ-9 Depression Total Score: 23 024 1:45 PM EDT documented as of this encounter Care Teams Insurance Representative Relationship Specialty Start Date End Date Shereen Latham MD [address] [place] [address] PCP - General Family Medicine 11/02/18 Nupur Bullock, CharleneD [address] [place] [address] Pharmacist Internal Medicine 08/09/24 Sury Benitez [address] [place] [address] [place] [address] [place] [address] Pulmonary Disease 09/27/24 Nirali Madrid OD [address] [place] [address] Optometry 10/27/24 Li Grande MD [address] [place] [address] Hematology and Oncology 10/27/24 Anselmo Gates MD [address] [place] [address] Orthopaedic Surgery 10/27/24 Margaret Holman [address] 3rd [place] [address] Cardiology 10/27/24 Herberth Stokes MD [address] 3rd [place] [address] Gastroenterology 10/27/24 Hilton Palacios MD [address] [facility] [address] [place] [address] Neurology 02/06/25 Pily Delaney Commercial TechnicianHouse Repairer 07/22/24 Elie BRASHER [facility] Psychology 12/29/24 documented as of this encounter
--- OUTSIDE RECORDS SUMMARY | 2025-02-27 17:10 | XMS_ITS | Encounter Summary ---
Author Organization [employer] Address [address] [facility] 7t [place] [address] Care Team Providers Care Visual Effects Artist Name Role Phone Shereen Latham MD Primary Care Provider [phone] Nupur Bullock PharmD Unavailable Sury Benitez Unavailable [phone] Nirali Madrid OD Unavailable Li Grande MD Unavailable [phone] Anselmo Gates MD Unavailable Margaret Holman Unavailable Herberth Stokes MD Unavailable [phone] Hilton Palacios MD Unavailable Encounter Details Date Type Department Care Team (Late st Contact Info) Description 10/11/2024 Telephone [facility] MEDICINE 230 [place], [place] [phone] Shereen Latham MD 230 [place], [place] [phone] Social History Tobacco Use Types Packs/Day Years [...] 11:15 AM EDT Office Visit [facility] MEDICINE 230 [place] [address] Shereen Latham MD 230 [place] [address] 03/29/2025 2:00 PM EDT Office Visit [facility] ADULT DENTAL 230 [place] [address] Heidi Jenny 230 [place] [address] 04/25/2025 2:30 PM EDT Medication Management [facility] MEDICINE [address] [place] [address] Nupur Bullock, CharleneD 230 [place] [address] 04/26/2025 9:30 AM EDT Office Visit [facility] MEDICINE [address] [place] [address] Shereen Latham MD [address] [place] [address] documented as of this encounter Visit Diagnoses Not on filedocumented in this encounter Additional Health Concerns Assessment Noted Time PHQ-9 Depression Total Score: 13 024 4:53 PM EDT documented as of this encounter Care Teams Visual Effects Artist Relationship Specialty Start Date End Date Shereen Latham MD [address] [place] [address] PCP - General Family Medicine 11/02/18 Nupur Bullock, CharleneD [address] [place] [address] Pharmacist Internal Medicine 08/09/24 Sury Benitez [address] [place] [address] [place] [address] [place] [address] Pulmonary Disease 09/27/24 Nirali Madrid OD [address] [place] [address] Optometry 10/27/24 Li Grande MD [address] [place] [address] Hematology and Oncology 10/27/24 Anselmo Gates MD [address] [place] [address] Orthopaedic Surgery 10/27/24 Margaret Holman [address] 3rd [place] [address] Cardiology 10/27/24 Herberth Stokes MD [address] 3rd [place] [address] Gastroenterology 10/27/24 Hilton Palacios MD [address] [facility] [address], [address] [place] [address] Neurology 02/06/25 Pily Delaney Video TechnicianGeneral Assignment Reporter 07/22/24 Elie BRASHER [facility] Psychology 12/29/24 documented as of this encounter
--- OUTSIDE RECORDS SUMMARY | 2025-02-27 17:11 | XMS_ITS | Clinical Summary ---
Author Organization [employer] [facility] Address [address] [place] [address] Care Team Providers Care Community Development Planner Name Role Phone Shereen Latham MD Primary Care Provider [phone]- [phone] Social History Tobacco Use Types Packs/Day Years [...] (1 of 2) 2023 COVID-19 Vaccine (2 season) 2024 02/09/2021 Hepatitis C Screening 08/11/2024 Social Influencers of Health Screening 08/11/2024 Hepatitis A Vaccines (2 of 2 - Risk 2-dose series) 12/30/2024 06/29/2024 Depression Screening 06/07/2025 06/07/2024 Influenza Vaccine (Season [...] age to complete this topic Care Teams Community Development Planner Relationship Specialty Start Date End Date Shereen Latham MD [address] [place] [phone] PCP - General 01/13/1996
--- OUTSIDE RECORDS SUMMARY | 2025-02-27 17:11 | XMS_ITS | Encounter Summary ---
Author Organization [employer] Address 75 [facility] 7t [place] [address] Care Team Providers Care Finish Repair Worker Name Role Phone Shereen Latham MD Primary Care Provider Nupur Bullock PharmD Unavailable Sury Benitez Unavailable [phone] Nirali Madrid OD Unavailable [phone] Li Grande MD Unavailable [phone] Anselmo Gates MD Unavailable Margaret Holman Unavailable Herberth Stokes MD Unavailable [phone] Hilton Palacios MD Unavailable [phone] Reason for Visit * Reason Onset Date Comments ER Follow-up 12/07/2024 Encounter Details Date Type Department Care Team (Late st Contact Info) Description 12/07/2024 Telephone [facility] MED[facility]INE 230 [place], [place] [phone] Shereen Latham MD 230 [place], [place] [phone] ER Follow-up Social History Tobacco Use Types [...] TC placed to pt to f/u on [facility] ED visit on 12/06/2024 for [...] ED visit on : Date: 12/06/24 Hospital: [facility] Seen for: Flu Patient advised will forward to team nurse for follow up documented in this encounter Plan of Treatment Upcoming Encounters Date Type Department Care Team (Late st Contact Info) Description 03/02/2025 11:15 AM EDT Office Visit [facility] [address] [place] [address] Shereen Latham MD [address] [place] [address] 03/29/2025 2:00 PM EDT Office Visit [facility] ADULT DENTAL [address] [place] [address] Heidi Jenny [address] [place] [address] 04/25/2025 2:30 PM EDT Medication Management [facility] [address] [place] [address] Nupur Bullock, PharmD [address] [place] [address] 04/26/2025 9:30 AM EDT Office Visit [address] [address] Shereen Latham MD [address] [place] [address] documented as of this encounter Visit Diagnoses Not on filedocumented in this encounter Additional Health Concerns Assessment Noted Time PHQ-9 Depression Total Score: 13 024 4:53 PM EDT documented as of this encounter Care Teams Finish Repair Worker Relationship Specialty Start Date End Date Shereen Latham MD 230 [place] [address] PCP - General Family Medicine 11/02/18 Nupur Bullock, CharleneD 230 [place] [address] Pharmacist Internal Medicine 08/09/24 Sury Benitez [address] [place] [address] [address] [place] [address] Pulmonary Disease 09/27/24 Nirali Madrid OD [address] [place] [address] Optometry 10/27/24 Li Grande MD [address] [place] [address] Hematology and Oncology 10/27/24 Anselmo Gates MD [address] [facility] [address] [place] [address] Orthopaedic Surgery 10/27/24 Margaret Holman [address] [facility] 3rd [place] [address] Cardiology 10/27/24 Herberth Stokes MD [address] [facility] 3rd [place] [address] Gastroenterology 10/27/24 Hilton Palacios MD [address] [place] [address], [address] [place] [address] Neurology 02/06/25 Pily Delaney Tubing Machine TenderMetal Bonding Worker 07/22/24 Elie Vicky [facility] Psychology 12/29/24 documented as of this encounter
== END 2025-02-27 15:30 | disposition home or self-care (01) ==
LOC: HO.HCS 14:23
PROVIDERS: PCP Family Medicine; Visit Provider Nurse Practitioner Family
DX: I50.30 Unspecified diastolic (congestive) heart failure (principal); R07.89 Other chest pain; I10 Essential (primary) hypertension; R06.00 Dyspnea, unspecified; R00.0 Tachycardia, unspecified
CPT/HCPCS: 99214

== ENCOUNTER → 2025-02-27 14:22 | Outpatient (BNVA) | payer MEDICAID, SELFPAY | PROVIDERS: PCP Family Medicine; Visit Provider Nurse Practitioner Family | DX: I11.0 Hypertensive heart disease with heart failure (principal); I50.30 Unspecified diastolic (congestive) heart failure; I42.9 Cardiomyopathy, unspecified; R07.89 Other chest pain; R06.00 Dyspnea, unspecified; R00.0 Tachycardia, unspecified | CPT/HCPCS: 99212 ==

== ENCOUNTER 2025-03-02 08:58 | Outpatient (REF) | payer MEDICAID, SELFPAY ==
--- OUTSIDE RECORDS SUMMARY | 2025-03-02 09:37 | XMS_ITS | Encounter Summary ---
Author Organization [employer] Address 75 [facility] 7t [place] [address] Care Team Providers Care Women'S Studies Lecturer Name Role Phone Shereen Latham MD Primary Care Provider [phone] Nupur Bullock PharmD Unavailable Sury Benitez Unavailable [phone] Nirali Madrid OD Unavailable Li Grande MD Unavailable [phone] Anselmo Gates MD Unavailable Margaret Holman Unavailable Herberth Stokes MD Unavailable [phone] Hilton Palacios MD Unavailable Encounter Details Date Type Department Care Team (Late st Contact Info) Description 05/02/2024 Orders Only [facility] 230 [place], [place] [phone] Shereen Latham MD 230 [place], [place] [phone] Gout, unspecified cause, unspecified chronicity, unspecified site [...] Description 03/02/2025 11:15 AM EDT Office Visit [facility] 230 [place] [address] Shereen Latham MD 230 [place] [address] 03/29/2025 2:00 PM EDT Office Visit [facility] ADULT DENTAL [address] [place] [address] Jeramie Gordonaris 230 [place] [address] 04/25/2025 2:30 PM EDT Medication Management [facility] [address] [place] [address] Nupur Bullock, PharmD [address] [place] [address] 04/26/2025 9:30 AM EDT Office Visit [facility] [address] [place] [address] Shereen Latham MD [address] [place] [address] documented as of this encounter Visit Diagnoses Diagnosis Gout, unspecified cause, unspecified chronicity, unspecified site- Primary documented in this encounter Additional Health Concerns Assessment Noted Time PHQ-9 Depression Total Score: 23 024 1:45 PM EDT documented as of this encounter Care Teams Women'S Studies Lecturer Relationship Specialty Start Date End Date Shereen Latham MD [address] [place] [address] PCP - General Family Medicine 11/02/18 Nupur Bullock, CharleneD [address] [place] [address] Pharmacist Internal Medicine 08/09/24 Sury Benitez [address] [place] [address] [place] [address] Pulmonary Disease 09/27/24 Nirali Madrid OD [address] [place] [address] Optometry 10/27/24 Li Grande MD [address] [place] [address] Hematology and Oncology 10/27/24 Anselmo Gates MD [address] [place] [address] Orthopaedic Surgery 10/27/24 Margaret Holman [address] 3rd [place] [address] Cardiology 10/27/24 Herberth Stokes MD [address] 3rd [place] [address] Gastroenterology 10/27/24 Hilton Palacios MD 15 [facility], [address] [place] [address] Neurology 02/06/25 Pily Delaney Solar Development EngineerAcademic Physician 07/22/24 Elie Vicky [facility] 12/29/24 documented as of this encounter
--- OUTSIDE RECORDS SUMMARY | 2025-03-02 09:37 | XMS_ITS | Encounter Summary ---
Author Organization [employer] Address 75 [facility] 7t [place] [address] Care Team Providers Care Almond Blancher Name Role Phone Shereen Latham MD Primary Care Provider [phone] Nupur Bullock PharmD Unavailable Sury Benitez Unavailable [phone] Nirali Madrid OD Unavailable Li Grande MD Unavailable [phone] Anselmo Gates MD Unavailable Margaret Holman Unavailable Herberth Stokes MD Unavailable [phone] Hliton Palacios MD Unavailable Encounter Details Date Type Department Care Team (Late st Contact Info) Description 04/26/2024 Orders Only [facility] 230 [place] [address] Junie Damon MD 230 [place], [place] [phone] Social History Tobacco Use Types Packs/Day Years [...] Description 03/02/2025 11:15 AM EDT Office Visit [facility] 230 [place] [address] Shereen Latham MD 230 [place] [address] 03/29/2025 2:00 PM EDT Office Visit [facility] ADULT DENTAL 230 [place] [address] Heidi, Jenny 230 [place] [address] 04/25/2025 2:30 PM EDT Medication Management [facility] [address] [place] [address] Nupur Bullock PharmD 230 [place] [address] 04/26/2025 9:30 AM EDT Office Visit [facility] [address] [place] [address] Shereen Latham MD [address] [place] [address] documented as of this encounter Visit Diagnoses Not on filedocumented in this encounter Additional Health Concerns Assessment Noted Time PHQ-9 Depression Total Score: 23 024 1:45 PM EDT documented as of this encounter Care Teams Almond Blancher Relationship Specialty Start Date End Date Shereen Latham MD [address] [place] [address] PCP - General Family Medicine 11/02/18 Nupur Bullock, CharleenD [address] [place] [address] Pharmacist Internal Medicine 08/09/24 Sury Benitez [address] [place] [address] [place] [address] Pulmonary Disease 09/27/24 Nirali Madrid OD [address] [place] [address] Optometry 10/27/24 Li Grande MD [address] [place] [address] Hematology and Oncology 10/27/24 Anselmo Gates MD [address] [place] [address] Orthopaedic Surgery 10/27/24 Margaret Holman [address] 3rd [place] [address] Cardiology 10/27/24 Herberth Stokes MD [address] 3rd [place] [address] Gastroenterology 10/27/24 Hilton Palacios MD [address], [address] [place] [address] Neurology 02/06/25 Pily Delaney Clinical Engineering ManagerSupercalender Operator 07/22/24 Elie BRASHER [facility] Psychology 12/29/24 documented as of this encounter
--- OUTSIDE RECORDS SUMMARY | 2025-03-02 09:37 | XMS_ITS | Encounter Summary ---
Author Organization [employer] Address 75 [facility] 7t [place] [address] Care Team Providers Care Director Of Special Education Name Role Phone Shereen Latham MD Primary Care Provider [phone] Nupur Bullock PharmD Unavailable Sury Benitez Unavailable [phone] Nirali Madrid OD Unavailable Li Grande MD Unavailable [phone] Anselmo Gates MD Unavailable Margaret Holman Unavailable Herberth Stokes MD Unavailable [phone] Hilton Palacios MD Unavailable Encounter Details Date Type Department Care Team (Late st Contact Info) Description 10/22/2023 Orders Only [facility] MEDICINE 230 [place] [address] Shereen Latham MD 230 [place], [place] [phone] Vitamin D deficiency Social History Tobacco Use [...] 03/02/2025 11:15 AM EDT Office Visit [facility] [address] [place] [address] Shereen Latham MD 230 [place] [address] 03/29/2025 2:00 PM EDT Office Visit [facility] ADULT DENTAL [address] [place] [address] [phone] Jenny Gordon 230 [place] [address] 04/25/2025 2:30 PM EDT Medication Management [facility] [address] [place] [address] Nupur Bullock PharmD 230 [place] [address] 04/26/2025 9:30 AM EDT Office Visit [facility] MED[facility]INE 230 [place] [address] Shereen Latham MD 230 [place] [address] documented as of this encounter Visit Diagnoses Diagnosis Vitamin D deficiency documented in this encounter Additional Health Concerns Assessment Noted Time PHQ-9 Depression Total Score: 21 023 10:42 AM EST documented as of this encounter Care Teams Director Of Special Education Relationship Specialty Start Date End Date Shereen Latham MD 230 [place] [address] PCP - General Family Medicine 11/02/18 Nupur Bullock, CharleneD 230 [place] [address] Pharmacist Internal Medicine 08/09/24 Sury Benitez [address] [place] [address] [facility] 103 [place] [address] Pulmonary Disease 09/27/24 Nirali Madrid OD 267 [place] [address] Optometry 10/27/24 Li Grande MD 575 [place] [address] Hematology and Oncology 10/27/24 Anselmo Gates MD [address] [place] [address] Orthopaedic Surgery 10/27/24 Margaret Holman [address] 3rd [place] [address] Cardiology 10/27/24 Herberth Stokes MD [address] 3rd [place] [address] Gastroenterology 10/27/24 Hilton Paalcios MD [address] [place] [address], [address] [place] [address] Neurology 02/06/25 Pily Delaney Engineering AideDoor Cutter 07/22/24 Elie BRASHER [facility] Psychology 12/29/24 documented as of this encounter
--- OUTSIDE RECORDS SUMMARY | 2025-03-02 09:37 | XMS_ITS | Encounter Summary ---
Author Organization [employer] Address 75 [facility] 7t [place] [address] Care Team Providers Care Drilling And Production Superintendent Name Role Phone Shereen Latham MD Primary Care Provider [phone] Nupur Bullock PharmD Unavailable Sury Benitez Unavailable [phone] Nirali Madrid OD Unavailable [phone] Li Grande MD Unavailable [phone] Anselmo Gates MD Unavailable Margaret Holman Unavailable Herbetrh Stokes MD Unavailable [phone] Hilton Palacios MD Unavailable Reason for Visit * Reason Comments Med Refill Encounter Details Date Type Department Care Team (Late st Contact Info) Description 01/17/2025 Refill [facility] [address] [place], [place] [phone] Shereen Latham MD 230 [place], [place] [phone] Pain Social History Tobacco Use Types Packs/Day [...] 03/02/2025 11:15 AM EDT Office Visit [facility] MEDICINE 230 [place] [address] Shereen Latham MD 230 [place] [address] 03/29/2025 2:00 PM EDT Office Visit [facility] ADULT DENTAL [address] [place] [address] Jeramie Gordonaris 230 [place] [address] 04/25/2025 2:30 PM EDT Medication Management [facility] MED[facility]INE [address] [place] [address] Nupur Bullock, PharmD [address] [place] [address] 04/26/2025 9:30 AM EDT Office Visit [facility] MED[facility]INE [address] [place] [address] Shereen Latham MD [address] [place] [address] documented as of this encounter Visit Diagnoses Diagnosis Pain Generalized pain documented in this encounter Additional Health Concerns Assessment Noted Time PHQ-9 Depression Total Score: 22 025 10:17 AM EST documented as of this encounter Care Teams Drilling And Production Superintendent Relationship Specialty Start Date End Date Shereen Latham MD [address] [place] [address] PCP - General Family Medicine 11/02/18 Nupur Bullock, CharleneD [address] [place] [address] Pharmacist Internal Medicine 08/09/24 Sury Benitez [address] [place] [address] [place] [address] Pulmonary Disease 09/27/24 Nirali Madrid OD [address] [place] [address] Optometry 10/27/24 Li Grande MD [address] [place] [address] Hematology and Oncology 10/27/24 Anselmo Gates MD [address] [place] [address] Orthopaedic Surgery 10/27/24 Margaret Holman [address] [facility] [address] 3rd [place] [address] Cardiology 10/27/24 Herberth Stokes MD [address] [facility] [address] 3rd [place] [address] Gastroenterology 10/27/24 Hilton Palacios MD 15 [facility], [address] [place] [address] Neurology 02/06/25 Pily Delaney Design EngInvestigator Claims 07/22/24 Elie Vicky [facility] 12/29/24 documented as of this encounter
--- OUTSIDE RECORDS SUMMARY | 2025-03-02 09:37 | XMS_ITS | Encounter Summary ---
Author Organization [employer] Address 75 [facility] 7t [place] [address] Care Team Providers Care Osteopathy Doctor Name Role Phone Shereen Latham MD Primary Care Provider [phone] Nupur Bullock PharmD Unavailable Sury Benitez Unavailable [phone] Nirali Madrid OD Unavailable Li Grande MD Unavailable [phone] Anselmo Gates MD Unavailable Margaret Holman Unavailable Herberth Stokes MD Unavailable [phone] Hilton Palacios MD Unavailable Reason for Visit * Reason Onset Date Comments Nurse Triage 05/25/2024 Encounter Details Date Type Department Care Team (Late st Contact Info) Description 05/25/2024 Telephone [facility] MEDICINE 230 [place], [place] [phone] Shereen Latham MD 230 [place], [place] [phone] Nurse Triage Social History Tobacco Use Types [...] . Pt reports Pt was seen in [facility] 05/11/24 for continued leftfoot pain and Pt was seen by interior horticulturist, Leta Lunsford MD 05/11/24 also (report is on the chart). Pt had been advised to stop BP med chlorthalidone per interior horticulturist [facility] because that particular medication is known to [...] anxiety. Pt is advised to come to [facility] today , open till 8pm, to be [...] 11:15 AM EDT Office Visit [facility] MED[facility] [address] [place] [address] Shereen Latham MD 230 [place] [address] 03/29/2025 2:00 PM EDT Office Visit [facility] ADULT DENTAL 230 [place] [address] Heidi, Jenny 230 [place] [address] 04/25/2025 2:30 PM EDT Medication Management [facility] MED[facility]INE [address] [place] [address] Nupur Bullock PharmD [address] [place] [address] 04/26/2025 9:30 AM EDT Office Visit [address] [address] Shereen Latham MD [address] [place] [address] documented as of this encounter Visit Diagnoses Not on filedocumented in this encounter Additional Health Concerns Assessment Noted Time PHQ-9 Depression Total Score: 22 024 9:12 AM EDT documented as of this encounter Care Teams Osteopathy Doctor Relationship Specialty Start Date End Date Shereen Latham MD [address] [place] [address] PCP - General Family Medicine 11/02/18 Nupur Bullock, PharmD [address] [place] [address] Pharmacist Internal Medicine 08/09/24 Sury Benitez [address] [place] [address] [place] [facility] [place] [address] Pulmonary Disease 09/27/24 Nirali Madrid OD [address] [place] [address] Optometry 10/27/24 Li Grande MD 575 [place] [address] Hematology and Oncology 10/27/24 Anselmo Gates MD [address] [facility] [address] [place] [address] Orthopaedic Surgery 10/27/24 Margaret Holman 11 [facility] 3rd [place] [address] Cardiology 10/27/24 Herberth Stokes MD 11 [facility] 3rd [place] [address] Gastroenterology 10/27/24 Hilton Palacios MD [address] [facility], [address] [place] [address] Neurology 02/06/25 Pily Delaney Venetian Blind Tape CutterPackager Hand 07/22/24 Elie Vicky [facility] 12/29/24 documented as of this encounter
--- OUTSIDE RECORDS SUMMARY | 2025-03-02 09:37 | XMS_ITS | Encounter Summary ---
Author Organization [employer] Address 75 [facility] 7t [place] [address] Care Team Providers Care Cold Type Composing Machine Operator Name Role Phone Shereen Latham MD Primary Care Provider [phone] Nupur Bullock PharmD Unavailable Sury Benitez Unavailable [phone] Nirali Madrid OD Unavailable [phone] Li Grande MD Unavailable [phone] Anselmo Gates MD Unavailable Margaret Holman Unavailable Herberth Stokes MD Unavailable [phone] Hilton Palacios MD Unavailable [phone] Reason for Visit * Reason Onset Date Comments Medication Question 07/05/2024 Encounter Details Date Type Department Care Team (Late st Contact Info) Description 07/05/[address] [facility] MEDICINE 230 [place], [place] [phone] Shereen Latham MD 230 [place], [place] [phone] Medication Question Social History Tobacco Use Types [...] is no medication interaction. Contact pt at [phone] documented in this encounter Plan of Treatment Upcoming Encounters Date Type Department Care Team (Late st Contact Info) Description 03/02/2025 11:15 AM EDT Office Visit [facility] MEDICINE [address] [place] [address] Shereen Latham MD [address] [place] [address] 03/29/2025 2:00 PM EDT Office Visit [facility] ADULT DENTAL [address] [place] [address] Jenny Gordon 230 [place] [address] 04/25/2025 2:30 PM EDT Medication Management [facility] MED[facility]INE [address] [place] [address] Nupur Bullock, PharmD [address] [place] [address] 04/26/2025 9:30 AM EDT Office Visit [facility] MEDICINE [address] [place] [address] Shereen Latham MD [address] [place] [address] documented as of this encounter Visit Diagnoses Diagnosis Pain Generalized pain documented in this encounter Additional Health Concerns Assessment Noted Time PHQ-9 Depression Total Score: 13 024 4:53 PM EDT documented as of this encounter Care Teams Cold Type Composing Machine Operator Relationship Specialty Start Date End Date Shereen Latham MD 230 [place] [address] PCP - General Family Medicine 11/02/18 Nupur Bullock, CharleneD 230 [place] [address] Pharmacist Internal Medicine 08/09/24 Sury Benitez [address] [place] [address] [address] [place] [address] Pulmonary Disease 09/27/24 Nirali Madrid OD [address] [place] [address] Optometry 10/27/24 Li Grande MD [address] [place] [address] Hematology and Oncology 10/27/24 Anselmo Gates MD 10 [facility] [address] [place] [address] Orthopaedic Surgery 10/27/24 Margaret Holman 11 [facility] 3rd [place] [address] Cardiology 10/27/24 Herberth Stokes MD 11 [facility] 3rd [place] [address] Gastroenterology 10/27/24 Hilton Palacios MD [address] [place] [address], [address] [place] [address] Neurology 02/06/25 Pily Delaney Auxiliary Powerplant OperatorHome Energy Auditor 07/22/24 Elie BRASHER [facility] Psychology 12/29/24 documented as of this encounter
--- OUTSIDE RECORDS SUMMARY | 2025-03-02 09:37 | XMS_ITS | Encounter Summary ---
Author Organization [employer] Address [address] [facility] 7t [place] [address] Care Team Providers Care Hot Molder Name Role Phone Shereen Latham MD Primary Care Provider Nupur Bullock PharmD Unavailable [phone] Sury Benitez Unavailable [phone] Nirali Madrid OD Unavailable Li Grande MD Unavailable [phone] Anselmo Gates MD Unavailable Margaret Holman Unavailable Herberth Stokes MD Unavailable [phone] Hilton Palacios MD Unavailable Reason for Referral * Consultation (Routine) - Closed Specialty Diagnoses / Procedures Referred By Walter nelson Referred To Contact Obstetrics and Gynecology Diagnoses Women's annual routine gynecological examination Stacey Khan MD [address] [place] [address] Phone: tel: fax: [facility] [address] 5th [address] (Main Hospital Entrance) [place], [place] Phone: tel: fax: Referral ID Status Reason Start Date Expiration Date V isits Requested Visits Authorized [id number] Closed Specialty Services Required 01/19/2025 01/19/2026 9 9 Encounter Details Date Type Department Care Team (Late st Contact Info) Description 01/19/2025 Orders Only [facility] [address] [place] [address] Stacey Khan MD [address] [place], [place] [phone] Women's annual routine gynecological examination (Primary Dx) [...] Description 03/02/2025 11:15 AM EDT Office Visit [facility] [address] [place] [address] Shereen Latham MD [address] [place] [address] 03/29/2025 2:00 PM EDT Office Visit [facility] ADULT DENTAL [address] [place] [address] Heidi, Jenny [address] [place] [address] 04/25/2025 2:30 PM EDT Medication Management [address] [address] Nupur Bullock, PharmD [address] [place] [address] 04/26/2025 9:30 AM EDT Office Visit [address] [address] Shereen Latham MD [address] [place] [address] Scheduled Referrals Name Type Priority Associated Diagnoses [...] HIGH SENSITIVITY 7.8 <3.5 - 17.0 ng/L [facility] Comment:The Henriquez high sens itivity Troponin-I results should beused in conjunction with other diagnostic information suchas ECG, clinical observations and information, and patientsymptoms to aid in the diagnosis of [place]. 01/19/2025 4:33 PM EDT 01/19/2025 4:34 PM EDT us Generic External Data Provider LAB BLOOD ORDERAB LES Final Result Performing Organization Address [facility]/ZIP Co de Phone Number [facility] [address] [place] [phone] * B Type Natriuretic Peptide (BNP) (01/19/2025 4:33 PM EDT) [facility] B Type Natriuretic Peptide 22 <100 pg/mL [facility] 01/19/2025 4:33 PM EDT 01/19/2025 4:34 PM EDT [employer] External Data Provider LAB BLOOD ORDERAB LES Final Result Performing Organization Address City/[facility]/ZIP Co de Phone Number [facility] [address] [place] [phone] * D Dimer High Sensitivity (01/19/2025 4:33 PM EDT) [facility] D Dimer High Sensitivity <150 NG/ML [facility] Comment:D-DIMER HS REFERENCE RANGENote: Our assay [...] Provider LAB BLOOD ORDERAB LES Final Result [facility] [address] [place] [address] [phone] documented in this encounter Visit Diagnoses Diagnosis Women's annual routine gynecological examination- Primary documented in this encounter Additional Health Concerns Assessment Noted Time PHQ-9 Depression Total Score: 22 025 10:17 AM EST documented as of this encounter Care Teams Hot Molder Relationship Specialty Start Date End Date Shereen Latham MD [address] [place] [address] PCP - General Family Medicine 11/02/18 Nupur Bullock, CharleneD [address] [place] [address] Pharmacist Internal Medicine 08/09/24 Sury Benitez [address] [place] [address] Dr [address] [place] [address] Pulmonary Disease 09/27/24 Nirali Madrid, OD [address] [place] [address] Optometry 10/27/24 Li Grande MD [address] [place] [address] Hematology and Oncology 10/27/24 Anselmo Gates MD [address] [place] [address] Orthopaedic Surgery 10/27/24 Margaret Holman [address] 3rd [place] [address] Cardiology 10/27/24 Herberth Stokes MD [address] 3rd [place] [address] Gastroenterology 10/27/24 Hilton Palacios MD [address], [address] [place] [address] Neurology 02/06/25 Pily Delaney Senior Asic EngineerTextile Engraver 07/22/24 Elie Vicky [facility] 12/29/24 documented as of this encounter
--- OUTSIDE RECORDS SUMMARY | 2025-03-02 09:38 | XMS_ITS | Encounter Summary ---
Author Organization [employer] Address 75 [facility] 7t [place] [address] Care Team Providers Care Database Engineer Name Role Phone Shereen Latham MD Primary Care Provider [phone] Nupur Bullock PharmD Unavailable Sury Benitez Unavailable [phone] Nirali Madrid OD Unavailable [phone] Li Grande MD Unavailable [phone] Anselmo Gates MD Unavailable Margaret Holman Unavailable Herberth Stokes MD Unavailable [phone] Hilton Palacios MD Unavailable Reason for Visit * Reason Onset Date Comments Lab Orders 02/24/2025 Encounter Details Date Type Department Care Team (Late st Contact Info) Description 02/24/2025 Telephone [facility] MED[facility]INE [address] [place], [place] [phone] Shereen Latham MD [address] [place], [place] [phone] Lab Orders Social History Tobacco Use Types [...] Telephone Encounter - Cira Martinez RN - 03/01/2025 3:58 PM EDT TC placed to pt to inform that PCP placed blood work orders today that pt had requested be done before sick onsite appt on 03/02/2025. Pt advised that if she has the blood work done first thing when the lab opens tomorrow morning at 830, the results may be available by the time of the appt at 1115. Pt was agreeable to this information and had no further questions or concerns. [...] liver and kidney function. Please return call [phone] documented in this encounter Plan of Treatment Upcoming Encounters Date Type Department Care Team (Late st Contact Info) Description 03/02/2025 11:15 AM EDT Office Visit [facility]INE [address] [place] [address] Shereen Latham MD [address] [place] [address] 03/29/2025 2:00 PM EDT Office Visit [facility] ADULT DENTAL [address] [place] [address] Heidi, Jenny [address] [place] [address] 04/25/2025 2:30 PM EDT Medication Management [facility] [address] [place] [address] Nupur Bullock PharmD [address] [place] [address] 04/26/2025 9:30 AM EDT Office Visit [facility] [address] [place] [address] Shereen Latham MD [address] [place] [address] documented as of this encounter Visit Diagnoses Not on filedocumented in this encounter Additional Health Concerns Assessment Noted Time PHQ-9 Depression Total Score: 22 025 10:17 AM EST documented as of this encounter Care Teams Database Engineer Relationship Specialty Start Date End Date Shereen Latham MD [address] [place] [address] PCP - General Family Medicine 11/02/18 Nupur Bullock, CharleneD [address] [place] [address] Pharmacist Internal Medicine 08/09/24 Sury Benitez [address] [place] [address] [place] [address] Pulmonary Disease 09/27/24 Nirali Madrid OD [address] [place] [address] Optometry 10/27/24 Li Grande MD [address] [place] [address] Hematology and Oncology 10/27/24 Anselmo Gates MD [address] [place] [address] Orthopaedic Surgery 10/27/24 Margaret Holman [address] 3rd [place] [address] Cardiology 10/27/24 Herberth Stokes MD [address] 3rd [place] [address] Gastroenterology 10/27/24 Hilton Palacios MD [address], [address] [place] [address] Neurology 02/06/25 Pily Delaney Chip DrierRehabilitation Aide 07/22/24 Elie Vicky [facility] 12/29/24 documented as of this encounter
--- OUTSIDE RECORDS SUMMARY | 2025-03-02 09:38 | XMS_ITS | Encounter Summary ---
Author Organization [employer] Address 75 [facility] 7t [place] [address] Care Team Providers Care Micro Photographer Name Role Phone Shereen Latham MD Primary Care Provider [phone] Nupur Bullock PharmD Unavailable Sury Benitez Unavailable [phone] Nirali Madrid OD Unavailable Li Grande MD Unavailable [phone] Anselmo Gates MD Unavailable Margaret Holman Unavailable Herberth Stokes MD Unavailable [phone] Hilton Palacios MD Unavailable Reason for Visit * Reason Onset Date Comments Nurse Triage 02/13/2025 Encounter Details Date Type Department Care Team (Late st Contact Info) Description 02/13/2025 Telephone [facility] MED[facility]INE [address] [place], [place] [phone] Shereen Latham MD 230 [place], [place] [phone] Nurse Triage Social History Tobacco Use Types [...] Description 03/02/2025 11:15 AM EDT Office Visit [facility] MED[facility]INE [address] [place] [address] Shereen Latham MD [address] [place] [address] 03/29/2025 2:00 PM EDT Office Visit [facility] ADULT DENTAL [address] [place] [address] Jenny Gordon [address] [place] [address] 04/25/2025 2:30 PM EDT Medication Management [facility] MED[facility] [address] [place] [address] Nupur Bullock PharmD [address] [place] [address] 04/26/2025 9:30 AM EDT Office Visit [facility] MED[facility]INE [address] [place] [address] Shereen Latham MD [address] [place] [address] documented as of this encounter Visit Diagnoses Not on filedocumented in this encounter Additional Health Concerns Assessment Noted Time PHQ-9 Depression Total Score: 22 025 10:17 AM EST documented as of this encounter Care Teams Micro Photographer Relationship Specialty Start Date End Date Shereen Latham MD [address] [place] [address] PCP - General Family Medicine 11/02/18 Nupur Bullock, PharmD [address] [place] [address] Pharmacist Internal Medicine 08/09/24 Sury Benitez [address] [place] [address] [facility] [address] [place] [address] Pulmonary Disease 09/27/24 Nirali Madrid OD [address] [place] [address] Optometry 10/27/24 Li Grande MD 575 [place] [address] Hematology and Oncology 10/27/24 Anselmo Gates MD [address] [place] [address] Orthopaedic Surgery 10/27/24 Margaret Holman [address] 3rd [place] [address] Cardiology 10/27/24 Herberth Stokes MD [address] 3rd Floor [place] [address] Gastroenterology 10/27/24 Hilton Palacios MD [address] [place] [address], [address] [place] [address] Neurology 02/06/25 Pily Delaney Project Manager Entertainment And MediaDirector For [employer] 07/22/24 Elie Vicky [facility] 12/29/24 documented as of this encounter
--- OUTSIDE RECORDS SUMMARY | 2025-03-02 09:38 | XMS_ITS | Encounter Summary ---
Author Organization [employer] Address 75 [facility] 7t [place] [address] Care Team Providers Care Reinforcing Steel Worker Wire Mesh Name Role Phone Shereen Latham MD Primary Care Provider Nupur Bullock PharmD Unavailable [phone] Sury Benitez Unavailable [phone] Nirali Madrid OD Unavailable Li Grande MD Unavailable [phone] Anselmo Gates MD Unavailable Margaret Holman Unavailable Herberth Stokes MD Unavailable [phone] Hilton Palacios MD Unavailable Reason for Visit * Reason Onset Date Comments ER Follow-up 12/07/2024 Encounter Details Date Type Department Care Team (Late st Contact Info) Description 12/07/[address] [facility] MEDICINE [address] [place], [place] [phone] Shereen Latham MD 230 [place], [place] [phone] ER Follow-up Social History Tobacco Use Types [...] placed to pt to f/u on [facility] ED visit on 12/06/2024 for right lower [...] ED visit on : Date: 12/06/24 Hospital: [facility] Seen for: Flu Patient advised will forward to team nurse for follow up documented in this encounter Plan of Treatment Upcoming Encounters Date Type Department Care Team (Late st Contact Info) Description 03/02/2025 11:15 AM EDT Office Visit [facility] MEDICINE [address] [place] [address] Shereen Latham MD [address] [place] [address] 03/29/2025 2:00 PM EDT Office Visit [facility] ADULT DENTAL [address] [place] [address] Heidi Jenny [address] [place] [address] 04/25/2025 2:30 PM EDT Medication Management [facility] MEDICINE [address] [place] [address] Nupur Bullock, PharmD [address] [place] [address] 04/26/2025 9:30 AM EDT Office Visit [address] [address] Shereen Latham MD [address] [place] [address] documented as of this encounter Visit Diagnoses Not on filedocumented in this encounter Additional Health Concerns Assessment Noted Time PHQ-9 Depression Total Score: 13 024 4:53 PM EDT documented as of this encounter Care Teams Reinforcing Steel Worker Wire Mesh Relationship Specialty Start Date End Date Shereen Latham MD [address] [place] [address] PCP - General Family Medicine 11/02/18 Nupur Bullock, CharleneD [address] [place] [address] Pharmacist Internal Medicine 08/09/24 Sury Benitez [address] [place] [address] [address] [place] [address] Pulmonary Disease 09/27/24 Nirali Madrid OD [address] [place] [address] Optometry 10/27/24 Li Grande MD [address] [place] [address] Hematology and Oncology 10/27/24 Anselmo Gates MD [address] [facility] [address] [place] [address] Orthopaedic Surgery 10/27/24 Margaret Holman [address] [facility] 3rd [place] [address] Cardiology 10/27/24 Herberth Stokes MD [address] [facility] 3rd [place] [address] Gastroenterology 10/27/24 Hilton Palacios MD [address] [place] [address], [address] [place] [address] Neurology 02/06/25 Pily Delaney Apprentice Pattern MakerEmail Marketing Specialist 07/22/24 Elie Vicky [facility] Psychology 12/29/24 documented as of this encounter
--- OUTSIDE RECORDS SUMMARY | 2025-03-02 09:38 | XMS_ITS | Encounter Summary ---
Author Organization [employer] Address 75 [facility] 7t [place] [address] Care Team Providers Care Salesperson Hosiery Name Role Phone Shereen Latham MD Primary Care Provider [phone] Nupur Bullock PharmD Unavailable Sury Benitez Unavailable [phone] Nirali Madrid OD Unavailable Li Grande MD Unavailable [phone] Anselmo Gates MD Unavailable Margaret Holman Unavailable Herberth Stokes MD Unavailable [phone] Hilton Palacios MD Unavailable Encounter Details Date Type Department Care Team (Late st Contact Info) Description 03/01/2025 Orders Only [facility] MEDICINE [address] [place], [place] [phone] Shereen Latham MD [address] [place], [place] [phone] Atrial tachycardia (CMS/HCC) (Primary Dx) Social History Tobacco Use [...] 03/02/2025 11:15 AM EDT Office Visit [facility] MEDICINE [address] [place] [address] Shereen Latham MD 230 [place] [address] 03/29/2025 2:00 PM EDT Office Visit [facility] ADULT DENTAL [address] [place] [address] Jeramie Gordonaris [address] [place] [address] 04/25/2025 2:30 PM EDT Medication Management [facility] MEDICINE [address] [place] [address] Nupur Bullock PharmD [address] [place] [address] 04/26/2025 9:30 AM EDT Office Visit [facility] MEDICINE [address] [place] [address] Shereen Latham MD [address] [place] [address] documented as of this encounter Visit Diagnoses Diagnosis Atrial tachycardia (CMS/HCC)- Primary Other specified cardiac dysrhythmias documented in this encounter Additional Health Concerns Assessment Noted Time PHQ-9 Depression Total Score: 22 025 10:17 AM EST documented as of this encounter Care Teams Salesperson Hosiery Relationship Specialty Start Date End Date Shereen Latham MD [address] [place] [address] PCP - General Family Medicine 11/02/18 Nupur Bullock, CharleneD [address] [place] [address] Pharmacist Internal Medicine 08/09/24 Sury Benitez [address] [place] [address] [place] [address] Pulmonary Disease 09/27/24 Nirali Madrid OD [address] [place] [address] Optometry 10/27/24 Li Grande MD 575 [place] [address] Hematology and Oncology 10/27/24 Anselmo Gates MD [address] [place] [address] Orthopaedic Surgery 10/27/24 Margaret Holman [address] 3rd [place] [address] Cardiology 10/27/24 Herberth Stokes MD [address] [place] [address] Gastroenterology 10/27/24 Hilton Palacios MD [address] [facility], [address] [place] [address] Neurology 02/06/25 iPly Delaney Mediation CommissionerPublic Address Technician 07/22/24 Elie Vicky [facility] 12/29/24 documented as of this encounter
--- OUTSIDE RECORDS SUMMARY | 2025-03-02 09:38 | XMS_ITS | Encounter Summary ---
Author Organization [employer] Address [address] [facility] 7t [place] [address] Care Team Providers Care Lithographic General Worker Name Role Phone Shereen Latham MD Primary Care Provider [phone] Nupur Bullock PharmD Unavailable Sury Benitez Unavailable [phone] Nirali Madrid OD Unavailable Li Grande MD Unavailable [phone] Anselmo Gates MD Unavailable Margaret Holman Unavailable Herberth Stokes MD Unavailable [phone] Hilton Palacios MD Unavailable [phone] Encounter Details Date Type Department Care Team (Late st Contact Info) Description 03/01/2025 Orders Only [facility] MEDICINE 230 [place], [place] [phone] Shereen Latham MD 230 [place], [place] [phone] Iron deficiency anemia, unspecified iron deficiency anemia type (Primary Dx); Alcohol use disorder, moderate, dependence (CMS/HCC) Social History Tobacco Use Types Packs/Day Years [...] Upcoming Encounters Date Type Department Care Team ([facility] st Contact Info) Description 03/02/2025 11:15 AM EDT Office Visit [facility] MEDICINE [address] [place] [address] Shereen Lathma MD 230 [place] [address] 03/29/2025 2:00 PM EDT Office Visit [facility] ADULT DENTAL 230 [place] [address] Heidi, Jenny [address] [place] [address] 04/25/2025 2:30 PM EDT Medication Management [facility] MEDICINE [address] [place] [address] Nupur Bullock PharmD 230 [place] [address] 04/26/2025 9:30 AM EDT Office Visit [address] [address] Shereen Latham MD 230 [place] [address] Scheduled Orders Name Type Priority Associated Diagnoses Orde r Schedule CBC auto differential Lab Routine Iron deficiency anemia, unspecified iron deficiency anemia type Expected: 03/01/2025 (Approximate), Expires: 03/01/2026 TSH with Reflex to Free T4 Lab Routine Iron deficiency anemia, unspecified iron deficiency anemia type Expected: 03/01/2025 (Approximate), Expires: 03/01/2026 Iron And Total Iron Binding Capacity Lab Routine Iron deficiency anemia, unspecified iron deficiency anemia type Expected: 03/01/2025, Expires: 03/01/2026 Vitamin B12 (Cobalamin) and Folate Panel, Serum Lab Routine Iron deficiency anemia, unspecified iron deficiency anemia type Expected: 03/01/2025, Expires: 03/01/2026 Magnesium Lab Routine Alcohol use disorder, moderate, dependence (CMS/HCC) Expected: 03/01/2025, Expires: 03/01/2026 Hepatic Function Panel Lab Routine Alcohol use disorder, moderate, dependence (CMS/HCC) Expected: 03/01/2025 (Approximate), Expires: 03/01/2026 Ferritin Lab Routine Iron deficiency anemia, unspecified iron deficiency anemia type Expected: 03/01/2025, Expires: 03/01/2026 documented as of this encounter Visit Diagnoses Diagnosis Iron deficiency anemia, unspecified iron deficiency anemia type- Primary Alcohol use disorder, moderate, dependence (CMS/HCC) documented in this encounter Additional Health Concerns Assessment Noted Time PHQ-9 Depression Total Score: 22 12/29/ 025 10:17 AM EST documented as of this encounter Care Teams Lithographic General Worker Relationship Specialty Start Date End Date Shereen Latham MD 230 [place] [address] PCP - General Family Medicine 11/02/18 Nupur Bullock, CharleneD 230 [place] [address] Pharmacist Internal Medicine 08/09/24 Sury Benitez [address] [place] [address] [address] [place] [address] Pulmonary Disease 09/27/24 Nirali Madrid OD [address] [place] [address] Optometry 10/27/24 Li Grande MD [address] [place] [address] Hematology and Oncology 10/27/24 Anselmo Gates MD [address] [place] [address] Orthopaedic Surgery 10/27/24 Margaret Holman [address] 3rd [place] [address] Cardiology 10/27/24 Herberth Stokes MD 11 [facility] 3rd [place] [address] Gastroenterology 10/27/24 Hilton Palacios MD [address] [place] [address] DR, [address] [place] [address] Neurology 02/06/25 Pily Delaney Truck Loader And UnloaderFranchise Sales Representative 07/22/24 Elie BRASHER [facility] Psychology 12/29/24 documented as of this encounter
--- OUTSIDE RECORDS SUMMARY | 2025-03-02 09:38 | XMS_ITS | Clinical Summary ---
Author Organization [facility] Address [address] [place] [address] Care Team Providers Care Behavioral Health Specialist Name Role Phone Shereen Latham MD Primary Care Provider [phone] Social History Tobacco Use Types Packs/Day Years [...] age to complete this topic Care Teams Behavioral Health Specialist Relationship Specialty Start Date End Date Shereen Latham MD [address] [place] [phone] PCP - General 01/13/1996
--- OUTSIDE RECORDS SUMMARY | 2025-03-02 09:38 | XMS_ITS | Encounter Summary ---
Author Organization [employer] Address 75 [facility] 7t [place] [address] Care Team Providers Care Door Operator Name Role Phone Shereen Latham MD Primary Care Provider [phone]- [phone] Nupur Bullock PharmD Unavailable Sury Benitez Unavailable [phone] Nirali Madrid OD Unavailable Li Grande MD Unavailable [phone] Anselmo Gates MD Unavailable Margaret Holman Unavailable Herberth Stokes MD Unavailable [phone] Hilton Palacios MD Unavailable Encounter Details Date Type Department Care Team (Latest Contact Info) Description 07/06/2019 Abstract [facility] CONVERSIONS Dental, Provider, DDS Social History [...] Description 03/02/2025 11:15 AM EDT Office Visit [facility] [address] [place] [address] Shereen Latham MD 230 [place] [address] 03/29/2025 2:00 PM EDT Office Visit [facility] ADULT DENTAL [address] [place] [address] Heidi, Jenny 230 [place] [address] 04/25/2025 2:30 PM EDT Medication Management [facility] [address] [place] [address] Nupur Bullock PharmD [address] [place] [address] 04/26/2025 9:30 AM EDT Office Visit [address] [address] Shereen Latham MD [address] [place] [address] documented as of this encounter Visit Diagnoses Not on filedocumented in this encounter Care Teams Door Operator Relationship Specialty Start Date End Date Shereen Latham MD [address] [place] [address] PCP - General Family Medicine 11/02/18 Nupur Bullock, PharmD [address] [place] [address] Pharmacist Internal Medicine 08/09/24 Sury Benitez [address] [place] [address] [place] [address] Pulmonary Disease 09/27/24 Nirali Madrid OD [address] [place] [address] Optometry 10/27/24 Li Grande MD [address] [place] [address] Hematology and Oncology 10/27/24 Anselmo Gates MD [address] [place] [address] Orthopaedic Surgery 10/27/24 Margaret Holman [address] [facility] [facility] [address] 3rd [place] [address] Cardiology 10/27/24 Herberth Stokes MD [address] [facility] [facility] [address] [place] [address] Gastroenterology 10/27/24 Hilton Palacios MD 15 [facility], [address] [place] [address] Neurology 02/06/25 Pily Delaney Water Pump AssemblerChest Painting And Sealing Supervisor 07/22/24 Elie Vicky [facility] 12/29/24 documented as of this encounter
--- OUTSIDE RECORDS SUMMARY | 2025-03-02 09:38 | XMS_ITS | Encounter Summary ---
Author Organization [employer] Address 75 [facility] 7t [place] [address] Care Team Providers Care Program Support Specialist Name Role Phone Shereen Latham MD Primary Care Provider [phone]- [phone] Nupur Bullock PharmD Unavailable Sury Benitez Unavailable [phone] Nirali aMdrid OD Unavailable Li Grande MD Unavailable [phone] Anselmo Gates MD Unavailable Margaret Holman Unavailable Herberth Stokes MD Unavailable [phone] Hilton Palacios MD Unavailable [phone] Reason for Visit * Reason Comments Med Refill Encounter Details Date Type Department Care Team (Late st Contact Info) Description 06/21/2024 Refill [facility] MED & PEDS [address] [place], [place] [address] Shereen Latham MD 230 [place] [address] Mild intermittent asthma, unspecified whether complicated; Pain [...] Description 03/02/2025 11:15 AM EDT Office Visit [facility] MEDICINE [address] [place] [address] Shereen Latham MD [address] [place] [address] 03/29/2025 2:00 PM EDT Office Visit [facility] ADULT DENTAL [address] [place] [address] Heidi, Jenny [address] [place] [address] 04/25/2025 2:30 PM EDT Medication Management [facility] MEDICINE [address] [place] [address] Nupur Bullock PharmD [address] [place] [address] 04/26/2025 9:30 AM EDT Office Visit [facility] MEDICINE [address] [place] [address] Shereen Latham MD [address] [place] [address] documented as of this encounter Visit Diagnoses Diagnosis Mild intermittent asthma, unspecified whether complicated Pain Generalized pain documented in this encounter Additional Health Concerns Assessment Noted Time PHQ-9 Depression Total Score: 13 024 4:53 PM EDT documented as of this encounter Care Teams Program Support Specialist Relationship Specialty Start Date End Date Shereen Latham MD [address] [place] [address] PCP - General Family Medicine 11/02/18 Nupur Bullock PharmD [address] [place] [address] Pharmacist Internal Medicine 08/09/24 Sury Benitez [address] [place] [address] [address] [place] [address] Pulmonary Disease 09/27/24 JuliusNirali quigley OD [address] [place] [address] Optometry 10/27/24 Li Grande MD [address] [place] [address] Hematology and Oncology 10/27/24 Anselmo Gates MD [address] [place] [address] Orthopaedic Surgery 10/27/24 Margaret Holman [address] 3rd [place] [address] Cardiology 10/27/24 Herberth Stokes MD 11 [facility] 3rd [place] [address] Gastroenterology 10/27/24 Hilton Palacios MD 15 [facility], [address] [place] [address] Neurology 02/06/25 Pily Delaney Carbon Lamp CleanerSole Rounding Machine Operator 07/22/24 Elie Vicky [facility] 12/29/24 documented as of this encounter
--- OUTSIDE RECORDS SUMMARY | 2025-03-02 09:38 | XMS_ITS | Encounter Summary ---
Author Organization [employer] Address 75 [facility] 7t [place] [address] Care Team Providers Care Bobbin Sorter Name Role Phone Shereen Latham MD Primary Care Provider [phone] Nupur Bullock PharmD Unavailable Sury Benitez Unavailable [phone] Nirali Madrid OD Unavailable Li Grande MD Unavailable [phone] Anselmo Gates MD Unavailable Margaret Holman Unavailable Herberth Stokes MD Unavailable [phone] Hilton Palacios MD Unavailable Encounter Details Date Type Department Care Team (Late st Contact Info) Description 07/27/[address] [facility] MEDICINE 230 [place], [place] [phone] Shereen Latham MD 230 [place], [place] [phone] Hypomagnesemia Social History Tobacco Use Types Packs/Day [...] 03/02/2025 11:15 AM EDT Office Visit [facility] [address] [place] [address] Shereen Latham MD [address] [place] [address] 03/29/2025 2:00 PM EDT Office Visit [facility] ADULT DENTAL [address] [place] [address] Heidi, Jenny 230 [place] [address] 04/25/2025 2:30 PM EDT Medication Management [facility] [address] [place] [address] Nupur Bullock PharmD [address] [place] [address] 04/26/2025 9:30 AM EDT Office Visit [address] [address] Shereen Latham MD [address] [place] [address] documented as of this encounter Visit Diagnoses Diagnosis Hypomagnesemia Disorders of magnesium metabolism documented in this encounter Additional Health Concerns Assessment Noted Time PHQ-9 Depression Total Score: 10 023 10:27 AM EDT documented as of this encounter Care Teams Bobbin Sorter Relationship Specialty Start Date End Date Shereen Latham MD [address] [place] [address] PCP - General Family Medicine 11/02/18 Nupur Bullock PharmD 230 [place] [address] Pharmacist Internal Medicine 08/09/24 Sury Benitez 10 [facility] [address] [place] [address] Pulmonary Disease 09/27/24 Julius Nirali SUSAN [address] [place] [address] Optometry 10/27/24 Li Grande MD [address] [place] [address] Hematology and Oncology 10/27/24 Anselmo Gates MD 10 [facility] [address] [place] [address] Orthopaedic Surgery 10/27/24 Margaret Holman 11 [facility] 3rd [place] [address] Cardiology 10/27/24 Herberth Stokes MD 11 [facility] 3rd [place] [address] Gastroenterology 10/27/24 Hilton Palacios MD 15 [facility], [address] [place] [address] Neurology 02/06/25 Pily Delaney Director FraudCrepe Sole Wire Brusher 07/22/24 Elie Vicky [facility] 12/29/24 documented as of this encounter
--- OUTSIDE RECORDS SUMMARY | 2025-03-02 09:38 | XMS_ITS | Encounter Summary ---
Author Organization [employer] Address 75 [facility] 7t [place] [address] Care Team Providers Care Heater Tender Name Role Phone Shereen Latham MD Primary Care Provider [phone]- [phone] Nupur Bullock PharmD Unavailable Sury Benitez Unavailable [phone] Nirali Madrid OD Unavailable Li Grande MD Unavailable [phone] Anselmo Gates MD Unavailable Margaret Holman Unavailable Herberth Stokes MD Unavailable [phone] Hilton Palacios MD Unavailable Reason for Visit * Reason Onset Date Comments Nurse Triage 01/25/2024 Referral 01/25/2024 Encounter Details Date Type Department Care Team (Late st Contact Info) Description 01/25/2024 Telephone [facility] MEDICINE 230 [place], [place] [phone] Shereen Latham MD 230 [place], [place] [phone] Nurse Triage; Referral Social History Tobacco Use [...] vary. Pt wants to be referred to [facility] [address] [facility] [address] [place] [address]. Adivsed will send to team to review [...] Description 03/02/2025 11:15 AM EDT Office Visit [facility] MED[facility] [address] [place] [address] Shereen Latham MD 230 [place] [address] 03/29/2025 2:00 PM EDT Office Visit [facility] ADULT DENTAL [address] [place] [address] Jeramie Gordonaris 230 [place] [address] 04/25/2025 2:30 PM EDT Medication Management [facility] MED[facility] [address] [place] [address] Nupur Bullock PharmD 230 [place] [address] 04/26/2025 9:30 AM EDT Office Visit [facility] MEDICINE [address] [place] [address] Shereen Latham MD 230 [place] [address] documented as of this encounter Visit Diagnoses Not on filedocumented in this encounter Additional Health Concerns Assessment Noted Time PHQ-9 Depression Total Score: 21 023 10:42 AM EST documented as of this encounter Care Teams Heater Tender Relationship Specialty Start Date End Date Shereen Latham MD 230 [place] [address] PCP - General Family Medicine 11/02/18 Nupur Bullock, CharleneD [address] [place] [address] Pharmacist Internal Medicine 08/09/24 Sury Benitez [address] [place] [address] [facility] [address] [place] [address] Pulmonary Disease 09/27/24 Nirali Madrid OD [address] [place] [address] Optometry 10/27/24 Li Grande MD [address] [place] [address] Hematology and Oncology 10/27/24 Anselmo Gates MD 10 [facility] [address] [place] [address] Orthopaedic Surgery 10/27/24 Margaret Holman 11 [facility] 3rd [place] [address] Cardiology 10/27/24 Herberth Stokes MD 11 [facility] 3rd [place] [address] Gastroenterology 10/27/24 Hilton Palacios MD [address] [place] [address], [address] [place] [address] Neurology 02/06/25 Pily Delaney Principal Technical SpecialistBehavioral Medical Director 07/22/24 Elie BRASHER [facility] 12/29/24 documented as of this encounter
--- OUTSIDE RECORDS SUMMARY | 2025-03-02 09:38 | XMS_ITS | Encounter Summary ---
Author Organization [employer] Address 75 [facility] 7t [place] [address] Care Team Providers Care Motor Coach Tour Operator Name Role Phone Shereen Latham MD Primary Care Provider [phone] Nupur Bullock PharmD Unavailable Sury Benitez Unavailable [phone] Nirali Madrid OD Unavailable [phone] Li Grande MD Unavailable [phone] Anselmo Gates MD Unavailable Margaret Holman Unavailable eHrberth Stokes MD Unavailable [phone] Hilton Palacios MD Unavailable [phone] Encounter Details Date Type Department Care Team (Late st Contact Info) Description 11/16/2022 Abstract [facility] MEDICINE 230 [place], [place] [phone] Shereen Latham MD 230 [place], [place] [phone] Social History Tobacco Use Types Packs/Day Years [...] 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 Per Dr. Krish Loomis's note from [facility] MOBILE EQUIPMENT OPERATOR, pt was due for repeat colposcopy in [...] Problem(s): Hyperaldosteronism (CMS/HCC) (Resolved 07/29/2023) Seen by [facility] Endocrinology 04/03/2022. Initially seen 12/2021 for hyperaldosteronism. Labs [facility] 10/2021 aldosterone 8, plasma renin 0.11, aldosterone/renin 72.7. She was likely on spironolactone and lisinopril at time of labs. Advise no spironolactone for 6 weeks and recheck renin aldosterone levels with renal panel and magnesium in elementary school librarian. 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 [...] had ultrasound sound for abdominal pain at [facility]. Ultrasound showed diffusely echogenic parenchyma with focal sparing around the gallbladder. No suspicious lesions. Impression showed liver likely representing hepatic steatosis and non- obstructing right kidney stone. documented in this encounter Plan of Treatment Upcoming Encounters Date Type Department Care Team (Late st Contact Info) Description 03/02/2025 11:15 AM EDT Office Visit [facility] MEDICINE [address] [place] [address] Shereen Latham MD [address] [place] [address] 03/29/2025 2:00 PM EDT Office Visit [facility] ADULT DENTAL [address] [place] [address] Heidi, Jenny [address] [place] [address] 04/25/2025 2:30 PM EDT Medication Management [facility] MEDICINE [address] [place] [address] Nupur Bullock PharmD [address] [place] [address] 04/26/2025 9:30 AM EDT Office Visit [address] [address] Shereen Latham MD [address] [place] [address] documented as of this encounter Visit Diagnoses Not on filedocumented in this encounter Care Teams Motor Coach Tour Operator Relationship Specialty Start Date End Date Shereen Latham MD [address] [place] [address] PCP - General Family Medicine 11/02/18 Nupur Bullock, PharmD [address] [place] [address] Pharmacist Internal Medicine 08/09/24 Sury Benitez [address] [place] [address] [place] [address] Pulmonary Disease 09/27/24 Nirali Madrid OD [address] [place] [address] Optometry 10/27/24 Li Grande MD [address] [place] [address] Hematology and Oncology 10/27/24 Anselmo Gates MD [address] [place] [address] Orthopaedic Surgery 10/27/24 Margaret Holman 11 [facility] [address] 3rd [place] [address] Cardiology 10/27/24 Herberth Stokes MD 11 [facility] [address] [place] [address] Gastroenterology 10/27/24 Hilton Palacios MD 15 [facility], [address] [place] [address] Neurology 02/06/25 Pily Delaney Plant Wire ChiefProduct Safety Coordinator 07/22/24 Elie Vicky [facility] 12/29/24 documented as of this encounter
--- OUTSIDE RECORDS SUMMARY | 2025-03-02 09:38 | XMS_ITS | Encounter Summary ---
Author Organization [employer] Address 75 [facility] 7t [place] [address] Care Team Providers Care Studio Operations Engineer In Charge Name Role Phone Shereen Latahm MD Primary Care Provider [phone] Nupur Bullock PharmD Unavailable [phone] Sury Benitez Unavailable [phone] Nirali Madrid OD Unavailable Li Grande MD Unavailable [phone] Anselmo Gates MD Unavailable Margaret Holman Unavailable Herberth Stokes MD Unavailable [phone] Hilton Palacios MD Unavailable Encounter Details Date Type Department Care Team (Late st Contact Info) Description 10/11/2024 Telephone [facility] MEDICINE 230 [place], [place] [phone] Shereen Latham MD 230 [place], [place] [phone] Social History Tobacco Use Types Packs/Day Years [...] Description 03/02/2025 11:15 AM EDT Office Visit [facility] MEDICINE 230 [place] [address] Shereen Latham MD 230 [place] [address] 03/29/2025 2:00 PM EDT Office Visit [facility] ADULT DENTAL 230 [place] [address] Heidi Jenny 230 [place] [address] 04/25/2025 2:30 PM EDT Medication Management [facility] MEDICINE [address] [place] [address] Nupur Bullock, CharleneD 230 [place] [address] 04/26/2025 9:30 AM EDT Office Visit [facility] MEDICINE [address] [place] [address] Shereen Latham MD [address] [place] [address] documented as of this encounter Visit Diagnoses Not on filedocumented in this encounter Additional Health Concerns Assessment Noted Time PHQ-9 Depression Total Score: 13 024 4:53 PM EDT documented as of this encounter Care Teams Studio Operations Engineer In Charge Relationship Specialty Start Date End Date Shereen Latham MD [address] [place] [address] PCP - General Family Medicine 11/02/18 Nupur Bullock, CharleneD [address] [place] [address] Pharmacist Internal Medicine 08/09/24 Sury Benitez [address] [place] [address] [place] [address] Pulmonary Disease 09/27/24 Nirali Madrid OD [address] [place] [address] Optometry 10/27/24 Li Grande MD [address] [place] [address] Hematology and Oncology 10/27/24 Anselmo Gates MD [address] [place] [address] Orthopaedic Surgery 10/27/24 Margaret Holman [address] 3rd [place] [address] Cardiology 10/27/24 Herberth Stokes MD [address] 3rd [place] [address] Gastroenterology 10/27/24 Hilton Palacios MD [address] [facility] [address] [place] [address] Neurology 02/06/25 Pily Delaney Flour TesterDip Tanker 07/22/24 Elie BRASHER [facility] Psychology 12/29/24 documented as of this encounter
--- OUTSIDE RECORDS SUMMARY | 2025-03-02 09:38 | XMS_ITS | Encounter Summary ---
Author Organization [employer] Address 75 [facility] 7t [place] [address] Care Team Providers Care Business Banking Sales Assistant Name Role Phone Shereen Latham MD Primary Care Provider [phone] Nupur Bullock PharmD Unavailable Sury Benitez Unavailable [phone] Nirali Madrid OD Unavailable Li Grande MD Unavailable [phone] Anselmo Gates MD Unavailable Margaret Holman Unavailable Herberth Stokes MD Unavailable [phone] Hilton Palacios MD Unavailable [phone] Encounter Details Date Type Department Care Team (Latest Contact Info) Description 08/16/2021 Abstract [facility] CONVERSIONS Dental, Provider, DDS Social History Tobacco [...] AM EDT Office Visit [facility] MEDICINE [address] [place] [address] Shereen Latham MD 230 [place] [address] 03/29/2025 2:00 PM EDT Office Visit [facility] ADULT DENTAL [address] [place] [address] Heidi, Jenny 230 [place] [address] 04/25/2025 2:30 PM EDT Medication Management [facility] MEDICINE [address] [place] [address] Nupur Bullock PharmBrook[place] [address] [place] [address] 04/26/2025 9:30 AM EDT Office Visit [address] [address] Shereen Latham MD [address] [place] [address] documented as of this encounter Visit Diagnoses Not on filedocumented in this encounter Care Teams Business Banking Sales Assistant Relationship Specialty Start Date End Date Shereen Latham MD [address] [place] [address] PCP - General Family Medicine 11/02/18 Nupur Bullock, CharleneD [address] [place] [address] Pharmacist Internal Medicine 08/09/24 Sury Benitez [address] [place] [address] [place] [address] Pulmonary Disease 09/27/24 Nirali Madrid OD [address] [place] [address] Optometry 10/27/24 Li Grande MD 575 [place] [address] Hematology and Oncology 10/27/24 Anselmo Gates MD [address] [place] [address] Orthopaedic Surgery 10/27/24 Margaret Holman [address] 3rd [place] [address] Cardiology 10/27/24 Herberth Stokes MD 11 [facility] 3rd [place] [address] Gastroenterology 10/27/24 Hilton Palacios MD 15 [facility], [address] [place] [address] Neurology 02/06/25 Pliy Delaney Mobile Home InstallerRecruiter Coordinator 07/22/24 Elie Vicky [facility] 12/29/24 documented as of this encounter
--- OUTSIDE RECORDS SUMMARY | 2025-03-02 09:38 | XMS_ITS | Clinical Summary ---
Author Organization [employer] Address [address] [facility] [address] [place] [address] Care Team Providers Care Marketing Traffic Coordinator Name Role Phone Shereen Latham MD Primary Care Provider [phone] Nupur Bullock PharmD Unavailable Sury Benitez Unavailable [phone] Nirali Madrid OD Unavailable Li Grande MD Unavailable [phone] Anselmo Gates MD Unavailable Margaret Holman Unavailable Herberth Stokes MD Unavailable [phone] Hilton Palacios MD Unavailable Allergies Active [...] FOR FEVER 60 tablet 02/16/20 25 Active metoprolol succinate XL (Toprol-XL) 25 MG 24 hr tabletIndicatio ns:Atrial tachycardia (CMS/HCC) Take 25 mg by mouth at bedtime. 01/21/20 25 Active Acetaminophen Extra Strength 500 MG tabletIndicatio ns:Pain TAKE 1 TABLET BY MOUTH EVERY 6 TO 8 HOURS NEEDED FOR PAIN OR FOR FEVER 60 tablet 01/18/20 25 025 Discontinued(R eoradhaer (will not trigger notification to Pharmacy)) Active Problems Problem Noted Date Diagnosed Date Atrial tachycardia 03/01/2025 Overview (03/01/2025): -per note from Margaret Holman 02/27/25 EKG last visit showed sinus tachycardia, unclear cause. Following last visit she was sent for D-dimer, troponin, BNP and they were all normal. She was started on metoprolol at that time and tells me she has only been taking half a tablet. Pulse rate is elevated today and regular on exam. She reports good hydration. Last TSH 1.77 on 06/16/2024. Recent labs show mild anemia, normal white ount, normal electrolytes. Will have her take metoprolol 25 mg daily. Will check Holter monitor to assess for average heart rate. If she continues to have tachycardia then dose can be increased up to 50 mg daily. Occipital neuralgia 02/06/2025 Overview (02/06/2025): -seen by [...] 04/21/24 with uric acid 7.9 -Seen by home health care physician Dr. Bernstein 05/11/24 or evaluation of acute gout affecting left foot. -Pt admitted 07/25/24-07/2524 for swelling, pain, and warmth in the right knee. Patient had a low fever (100.3 F) and elevated WBC (23648 cells/uL), CRP, and ESR. Orthopedic surgery consulted [...] reach serum uric acid level <6 mg/dL(2020 [employer] guideline for the management [...] 04/21/24 with uric acid 7.9 -Seen by home health care physician Dr. Bernstein 05/11/24 or evaluation of acute gout affecting left foot. -Pt admitted 07/25/24-07/2524 for swelling, pain, and warmth in the right knee. Patient had a low fever (100.3 F) and elevated WBC (16953 cells/uL), CRP, and ESR. Orthopedic surgery consulted [...] reach serum uric acid level <6 mg/dL(2020 [employer] guideline for the management [...] reach serum uric acid level <6 mg/dL(2020 [employer] guideline for the management [...] ON 08/24/2024 9:45 AM BY JOLIE PA [facility] (07/25/2024 - 07/27/2024) Patient presented with swelling, pain, and warmth in the right knee. Patient had a low fever (100.3 F) and elevated WBC (77163 cells/uL), CRP, and ESR. Orthopedic surgery consulted [...] by mouth once daily for 5 days. [facility] ED (08/07/2024) Patient presented for right knee [...] of breath) 06/29/2024 Overview (12/29/2024): -Followed by [facility] Pulmonology with Sury Benitez NP -02/2024 [...] Plan (12/29/2024 11:03 AM EST): -Followed by [facility] Pulmonology with Sury Benitez NP -02/2024 [...] if needed. -pt reports she saw her lifts and cranes inspector and is continuing management with them. . Assessment & Plan (07/13/2024 2:15 PM EDT): -referred to pulmonology 06/29/24 -Pt reports she has appt to see lifts and cranes inspector 08/01/24 Assessment & Plan (06/29/2024 4:49 PM EDT): -referred to pulmonology 06/29/24 (HFpEF) heart failure with preserved ejection fr action 06/29/2024 Overview (02/24/2025): -Echocardiogram done 10/18/2021 had shown EF 30-35%, mild LVH. She did not come for cardiology follow-up after that finding. A stress test at that time was incomplete. -Dx with acute congestive heart failure with reduced EF during admission to [facility] 06/22/24. - She was started on [...] effusion and indeterminate diastolic function -Seen by [facility] Cardiology 08/01/24 : exercise nuclear stress [...] with reduced EF during recent admission to [facility] 06/22/24. Pt was volume overloaded therefore [...] with reduced EF during recent admission to [facility] 06/22/24. Pt was volume overloaded therefore [...] failure with reduced EF during admission to [facility] 06/22/24. - She was started on [...] effusion and indeterminate diastolic function -Seen by [facility] Cardiology 08/01/24 : exercise nuclear stress [...] failure with reduced EF during admission to [facility] 06/22/24. - She was started on [...] effusion and indeterminate diastolic function -Seen by [facility] Cardiology 08/01/24 : exercise nuclear stress [...] Complex care coordination 01/11/2024 Overview (01/11/2024): -Has MACHINE [employer]OL ELECTRICIAN services with [facility] -She is applying [facility] 01/11/2024 -In our complex care management program -referred to [facility] on 01/04/2024 -Messaged sent to [employer] caretaker for assistance in care visits Assessment & Plan (12/29/2024 10:21 AM EST): -Has MACHINE TOOL ELECTRICIAN services with [facility] -She is applying [facility] 01/11/2024 -In our complex care management program -referred to [facility] on 01/04/2024 -Messaged sent to [employer] caretaker for assistance in care visits Assessment & Plan (08/24/2024 9:19 AM EDT): -Has MACHINE TOOL ELECTRICIAN services with [facility] -Leonora is applying [facility] 01/11/2024 -In our complex care management program -referred to [facility] on 01/04/2024 -Messaged sent to [employer] caretaker for assistance in care visits Assessment & Plan (06/29/2024 4:06 PM EDT): -Has MACHINE TOOL ELECTRICIAN services with [facility] -Leonora is applying [facility] 01/11/2024 -In our complex care management program -referred to [facility] on 01/04/2024 -Messaged sent to [employer] caretaker for assistance in care visits Assessment & Plan (01/11/2024 9:30 AM EDT): -Has MACHINE TOOL ELECTRICIAN services with [facility] -[place]ora is applying [facility] 01/11/2024 -In our complex care management program -referred to [facility] on 01/04/2024 -Messaged sent to [employer] caretaker for assistance in care visits Generalized anxiety [...] Pain Management team and will reconnect with [facility]. Information given to patient. PLAN: (check all that apply) Behavioral Health Integration Plan Self- referred to [facility] per patient's preference. Assessment & Plan (11/24/2023 11:53 AM EST): STEFANY-7 Total Score: 21 (10/22/2023 10:44 AM) New/Additional Services needed Off-site services for , Behavioral Health Integration Plan External OP therapy referral , Patient Self Plan Patient to utilize skills provided in intervention , Patient to reach out to [facility] team as needed, and Patient to engage [...] for transfusion - Iron infusions ordered by [employer] DR. Grande - She recieved two sessions [...] for transfusion - Iron infusions ordered by [employer] DR. Grande - She recieved two sessions [...] for transfusion - Iron infusions ordered by [employer] DR. Grande - She recieved two sessions [...] for transfusion - Iron infusions ordered by [employer] DR. Grande - She recieved two sessions [...] lynnelulu back by: Janett Ortega Person calling: [employer] Date:06/16/24 Time: 1218 Saw CDTM on 08/16/24 [...] pedro back by: Janett Ortega Person calling: [employer] Date:06/16/24 Time: 1218 Assessment & Plan (07/29/2023 4:34 PM EDT): Received magnesium IV in ER -Dose increased to TID - Recheck in 2 weeks Other specified health status 07/20/2023 Overview (07/11/2024): -next physical exam due after 06/29/25 -eye care facilitated by [facility] -dental home is [facility] -health care proxy filed 06/29/24 Assessment & Plan (06/29/2024 4:03 PM EDT): -next physical exam due after 06/29/25 -eye care facilitated by [facility] -dental home is [facility] -health care proxy given and filed [...] on scene within 10 minutes, transfer completed [facility] ER called with expect Chronic GERD 05/26/2023 [...] had ultrasound sound for abdominal pain at [facility] revealing diffusely echogenic parenchyma with focal [...] had ultrasound sound for abdominal pain at [facility] revealing diffusely echogenic parenchyma with focal [...] had ultrasound sound for abdominal pain at [facility] revealing diffusely echogenic parenchyma with focal [...] had ultrasound sound for abdominal pain at [facility] revealing diffusely echogenic parenchyma with focal [...] had ultrasound sound for abdominal pain at [facility] revealing diffusely echogenic parenchyma with focal [...] had ultrasound sound for abdominal pain at [facility]. Ultrasound showed diffusely echogenic parenchyma with focal [...] been referred [facility] for Support and Recovery but has [...] subsequently declined -Admitted for alcohol detox at [facility] 04/09/24 -reports she is currently not [...] been referred to [facility] for Support and Recovery but has [...] subsequently declined -Admitted for alcohol detox at [facility] 04/09/24 -reports she is currently not [...] been referred to [facility] for Support and Recovery but has [...] subsequently declined -Admitted for alcohol detox at [facility] 04/09/24 -reports she is currently not [...] received phenobarb improved her symptoms, patient declined laborer aquatic life help to place her in rehab, is [...] received phenobarb improved her symptoms, patient declined laborer aquatic life help to place her in rehab, is [...] type, invasive tumor 2.2 cm ER positive, ID positive, HER-2/RON negative, two sentinel nodes negative. -S/[facility] started Oct, [...] type, invasive tumor 2.2 cm ER positive, ID positive, HER-2/RON negative, two sentinel nodes negative. -S/p RIGHT mastectomy with sentinel node bx by Dr. Prescott [facility] -Adriamycin/Cytoxan based chemotherapy started Oct, completed [...] type, invasive tumor 2.2 cm ER positive, ID positive, HER-2/RON negative, two sentinel nodes negative. -S/p RIGHT mastectomy with sentinel node bx by Dr. Prescott [facility] -Adriamycin/Cytoxan based chemotherapy started Oct, completed [...] type, invasive tumor 2.2 cm ER positive, ID positive, HER-2/RON negative, two sentinel nodes negative. -S/p RIGHT mastectomy with sentinel node bx by Dr. Prescott [facility] -Adriamycin/Cytoxan based chemotherapy started Oct, completed [...] type, invasive tumor 2.2 cm ER positive, ID positive, HER-2/RNO negative, two sentinel nodes negative. -S/p RIGHT mastectomy with sentinel node bx by Dr. Martinezat [facility] -Adriamycin/Cytoxan based chemotherapy started Oct, completed [...] type, invasive tumor 2.2 cm ER positive, ID positive, HER-2/RON negative, two sentinel nodes negative. -S/p RIGHT mastectomy with sentinel node bx by Dr. Martinezat [facility] -Adriamycin/Cytoxan based chemotherapy started Oct, completed [...] type, invasive tumor 2.2 cm ER positive, ID positive, HER-2/RON negative, two sentinel nodes negative. -S/p RIGHT [facility] started Oct, [...] type, invasive tumor 2.2 cm ER positive, ID positive, HER-2/RON negative, two sentinel nodes negative. -S/p RIGHT mastectomy with sentinel node bx by Dr. Prescott [facility] -Adriamycin/Cytoxan based chemotherapy started Oct, completed [...] type, invasive tumor 2.2 cm ER positive, ID positive, HER-2/RON negative, two sentinel nodes negative. -S/p RIGHT [facility] started Oct, [...] type, invasive tumor 2.2 cm ER positive, ID positive, HER-2/RON negative, two sentinel nodes negative. -S/p RIGHT mastectomy with sentinel node bx by Dr. Prescott [facility] -Adriamycin/Cytoxan based chemotherapy started Oct, completed [...] Overview (06/28/2024): Lab Results Component Value Date [id number] 58.3 06/16/2024 [id number] 106.4 01/04/2024 [id number] 76.8 09/22/2023 Assessment & Plan (06/29/2024 3:39 PM EDT): Lab Results Component Value Date [id number] 58.3 06/16/2024 [id number] 106.4 01/04/2024 [id number] 76.8 09/22/2023 Assessment & Plan (12/14/2023 12:09 PM EST): Lab Results Component Value Date [id number] 76.8 09/22/2023 -Labs ordered for further evaluation: Vitmain D, 25-hydroxy, Total, Immunoassay. 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 Per Dr. Krish Loomis's note from [facility] DIABETES NURSE, pt was due for repeat colposcopy in [...] CIN2-3. Per Dr. Krish Loomis's note from [facility], pt was due for repeat [...] CIN2-3. Per Dr. Krish Loomis's note from [facility], pt was due for repeat [...] CIN2-3. Per Dr. Krish Loomis's note from [facility], pt was due for repeat [...] features 04/19/2014 Overview (12/29/2024): -has therapist in [place]. Has appt. 12/30/24. Had intake for psychiatry [...] up with [facility] Patient Self Plan Patient to utilize skills provided in intervention , Patient to reach out to [facility] team as needed, Patient to reach out to [facility] as needed, and will contact [facility] Intake number to connect with director long term care OP services, and psychiatrist. Rule Out Diagnoses: [...] as pharmacomtherapy, [facility] smoking cessation group, and [facility] pharmacy smoking cessation clinic Discussed USPSTF [...] as pharmacomtherapy, [facility] smoking cessation group, and [facility] pharmacy smoking cessation clinic Discussed USPSTF [...] as pharmacomtherapy, [facility] smoking cessation group, and [facility] pharmacy smoking cessation clinic Discussed USPSTF [...] as pharmacomtherapy, [facility] smoking cessation group, and [facility] pharmacy smoking cessation clinic Discussed USPSTF [...] as pharmacomtherapy, [facility] smoking cessation group, and [facility] pharmacy smoking cessation clinic Discussed USPSTF [...] flare 05/11/2024 12/29/2024 Overview (07/13/2024): Seen by home health care physician Dr. Bernstein 05/11/24 or evaluation of acute [...] Plan (07/13/2024 2:21 PM EDT): Seen by home health care physician Dr. Bernstein 05/11/24 or evaluation of acute [...] EDT): Patient requesting a Physical for her MACHINE TOOL ELECTRICIAN hours to be re-instated. On exam today, her vitals are stable and her exam seems unchanged from previous one. Work up in progress for her c/o bilateral foot pain Hospital discharge follow-up 06/18/2023 07/20/2023 Assessment & Plan (07/14/2023 10:23 AM EDT): Patient here for a HDF. She was admitted to [facility] from 06/05-06/08 . She presented with concerns [...] 10/27/2024 Hyperaldosteronism 11/16/2022 Overview (11/16/2022): Seen by [facility] Endocrinology 04/03/2022. Initially seen 12/2021 for hyperaldosteronism. Labs [facility] 10/2021 aldosterone 8, plasma renin 0.11, aldosterone/renin 72.7. She was likely on spironolactone and lisinopril at time of labs. Advise no spironolactone for 6 weeks and recheck renin aldosterone levels with renal panel and magnesium in clinical appeals specialist. Assessment & Plan (11/16/2022 10:55 AM EST): Seen by [facility] Endocrinology 04/03/2022. Initially seen 12/2021 for hyperaldosteronism. Labs [facility] 10/2021 aldosterone 8, plasma renin 0.11, aldosterone/renin 72.7. She was likely on spironolactone and lisinopril at time of labs. Advise no spironolactone for 6 weeks and recheck renin aldosterone levels with renal panel and magnesium in clinical appeals specialist. Anxiety 04/19/2014 01/28/2024 Encounters Date Type Department Care Team Description 03/01/2025 Orders Only [facility] MEDICINE [address] [place] [address] Shereen Latham MD Iron deficiency anemia, unspecified iron deficiency anemia type (Primary Dx); Alcohol use disorder, moderate, dependence ([facility]/HCC) 03/01/2025 Orders Only [address] [address] Sheeren Latham MD Atrial tachycardia ([facility]) (Primary Dx) 02/24/[address] [address] Shereen Latham MD Lab Orders 02/23/[address] [address] Shereen Latham MD chartprep 02/15/2025 Refill [facility] CH[facility] MED & PEDS [address] [place], [place] [phone] Shereen Latham MD Pain 02/13/2025 Telephone [facility] [address] [place] [address] Shereen Latham MD Nurse Triage 02/09/2025 Orders Only [facility] Heart failure with preserved ejection fraction, unspecified HF chronicity (CMS/HCC) (Primary Dx) 01/27/2025 Orders Only [facility] [address] [facility] [place] [address] Shereen Latham MD History of right breast cancer (Primary Dx) 01/27/2025 Orders Only [facility] [address] [facility] [place] [address] Shereen Latham MD Hypomagnesemia (Primary Dx) 01/24/2025 1:00 PM EDT Clinical Support [facility] DIABETES/NUTRITIO N [address] [facility] [place] [address] History of chronic CHF (Primary Dx) 01/24/2025 Telephone [facility] MEDICINE [address] [place] [address] Shereen Latham MD Medication Question 01/24/2025 Travel 01/19/2025 Orders Only [facility] MEDICINE [address] [place] [address] Stacey Khan MD Women's annual routine gynecological examination (Primary Dx) 01/19/2025 Orders Only [facility] MEDICINE [address] [place] [address] Stacey Khan MD Breast pain, left (Primary Dx); History of right breast cancer 01/17/2025 3:00 PM EDT Nutrition [facility] DIABETES/NUTRITIO N [address] [place] [address] History of chronic CHF 01/17/2025 Refill [facility] [address] [place], [place] [phone] Shereen Latham MD Pain 01/17/2025 Travel 01/17/2025 Refill [facility] [address] [place] [address] Mayda Rush MD Pain 01/16/2025 Telephone [facility] MEDICINE [address] [place] [address] Shereen Latham MD Appointment Request 01/13/2025 Population Health Risk Score [facility] [address] [phone] Provider, Population Health Generic 01/12/2025 Refill [facility] [address] [place] [address] Shereen Latham MD Benign essential hypertension 01/09/[address] [address] Shereen Latham MD Gastroesophageal reflux disease, unspecified whether esophagitis present; Vitamin D deficiency; Nasal congestion 01/03/[address] [address] Shereen Latham MD Referral 12/29/2024 10:30 AM EST Office Visit [address] [address] Shereen Latham MD History of right breast [...] coordination; Tubular adenoma of colon 12/29/[address] [address] Shereen Latham MD Results 12/29/2024 Orders Only [address] [address] Shereen Latham MD Gout, unspecified cause, unspecified chronicity, unspecified site 12/29/2024 Orders Only GENERIC EXTERNAL DATA DEPARTMENT Provider, Generic External Data 12/29/2024 Travel 12/22/[address] [address] Shereen Latham MD Durable Medical Equipment; chartprep 12/22/[address] [address] Shereen Latham MD Nurse Triage 12/21/2024 3:30 PM EST Telemedicine [facility] MEDICINE [address] [place] [address] Nupur Bullock, CharleneD Preventative health care (Primary Dx) 12/21/2024 Travel 12/21/2024 Refill [facility] MED & PEDS [address] [place] [address] Shereen Latham MD Pain 12/20/2024 Orders Only [facility] External Provider, [facility] 12/14/2024 Travel 12/12/2024 Patient Outreach [address] [address] Shereen Latham MD Transition Of Care (Tcm) 12/10/2024 Orders Only GENERIC EXTERNAL DATA DEPARTMENT Provider, Generic External Data 12/09/[address] [address] Shereen Latham MD Nurse Triage 12/07/[address] [address] Shereen Latham MD ER Follow-up 12/06/2024 Orders [...] 03/02/2025 11:15 AM EDT Office Visit [facility] MEDICINE [address] [place] [address] Shereen Latham MD [address] [place] [address] 03/29/2025 2:00 PM EDT Office Visit [facility] ADULT DENTAL [address] [place] [address] Heidi, Jenny [address] [place] [address] 04/25/2025 2:30 PM EDT Medication Management [facility] MEDICINE [address] [place] [address] Nupur Bullock, PharmD [address] [place] [address] 04/26/2025 9:30 AM EDT Office Visit [facility] MEDICINE [address] [place] [address] Shereen Latham MD [address] [place] [address] Health Maintenance Due Date Last Done Comments [...] EDT Narrative 02/23/2025 1:08 PM EDT ? [facility] ? [address] ?[place] [address] ? Ultrasound Report ? Signed ? Patient: Cast,Azra ?MR#: [id number] ?? [id number] ? : 1975 ?Acct:[id number] ? Age/Sex: 49 / F ?ADM Date: 04/24/25 ? Loc: HO.MAMMO ? Attending Dr: Stacey Khan MD ? Ordering Physician: Stacey Khan MD ?? Date of Service: 02/23/25 ?? Procedure(s): US breast LT limited mamm only ?? Accession Number(s): [id number] ? cc: Shereen Latham MD; Stacey Khan [...] BI-RADS breast ?? composition Category b). ?? [place] marker in the upper outer breast area [...] DD/ 1215 ? TD/TT: 02/23/25 1237 ? Hose Tester: ? Procedure Note Donotmalouinterpreter, Image - 02/23/2025 [facility] [address] [place] [address] Ultrasound Report Signed Patient: Maged Cast#: [id number] : 1975Acct:[id number] Age/Sex: 49 / FADM Date: 02/23/25 Loc: HO.MAMMO Attending Dr: Stacey Khan MD Ordering Physician: Stacey Khan MD Date of Service: 02/23/25 Procedure(s): US breast LT limited mamm only Accession Number(s): [id number] cc: Shereen Latham MD; Stacey Khan MD [...] density (ACR BI-RADS breast composition Category b). [place] marker in the upper outer breast area [...] 02/23/25 1306 DD/ 1215 TD/TT: 02/23/25 1237 Hose Tester: Stacey Khan MD IMG US PROCEDURES Final Result * BI Mammogram Diagnostic Tomosynthesis Left (02/23/2025 11:40 AM EDT) Anatomical Region Laterality Modality Breast Left Mammography 02/23/2025 11:4 0 AM EDT Narrative 02/23/2025 1:08 PM EDT ? [facility] ? [address] [facility] ?[place] [address] ?[phone] ? Mammography Report ? Signed ? Patient: Cast,Azra ?MR#: [id number] ?? 3774 ? : 1975 ?Acct:[id number] ? Age/Sex: 49 / F ?ADM Date: 04/24/25 ? Loc: HO.MAMMO ? Attending Dr: Stacey Khan MD ? Ordering Physician: Stacey Khan MD ?Results: 4Suspicio ?? us Finding ? Date of Service: 02/23/25 ?Follow Up: Biopsy Recommend ?? ed ? Procedure(s): MM tomosynthesis diagnostic LT ?? Accession Number(s): [id number] ? cc: Shereen Latham MD; Stacey Khan [...] BI-RADS breast ?? composition Category b). ?? [place] marker in the upper outer breast area [...] DD/ 1140 ? TD/TT: 02/23/25 1150 ? Hose Tester: ? Procedure Note Sumi, Image - 02/23/2025 [facility] [address] [place] [address] Mammography Report Signed Patient: Maged Cast#: [id number] : 1975Acct:[id number] Age/Sex: 49 / FADM Date: 02/23/25 Loc: ALBERTO Attending Dr: Stacey Khan MD Ordering Physician: Stacey Khan MDResults: 4Suspicio us Finding Date of Service: 02/23/25Follow Up: Biopsy Recommend ed Procedure(s): MM tomosynthesis diagnostic LT Accession Number(s): [id number] cc: Shereen Latham MD; Stacey Khan MD [...] density (ACR BI-RADS breast composition Category b). [place] marker in the upper outer breast area [...] 02/23/25 1306 DD/ 1140 TD/TT: 02/23/25 1150 Hose Tester: us Stacey Khan MD IMG BI PROCEDURES Final Result * Stress test with myocardial perfusion (02/09/2025 9:30 AM EDT) 02/09/2025 9:30 AM EDT [facility] IMAGING - 02/24/2025 11:11 AM EDT ? [facility] [facility] ?[address] ?[place] [address] ?Nuclear Medicine Report ? Signed ? Patient: Cast,Azra ?MR#: [id number] ?? 3774 ? : 1975 ?Acct:[id number] ? Age/Sex: 49 / F ?ADM Date: 02/09/25 ? Loc: HO.CARD ? Attending Dr: Margaret ALMANZA ? Ordering Physician: Margaret Holman ?? Date of Service: 02/09/25 ?? Procedure(s): NM cardiolite stress test ?? Accession Number(s): [id number] ? cc: Shereen Latham MD; Margaret Holman [...] MD in OV> ?02/24/25 1108 ? DD/ 9 ? TD/TT: 02/22/25 1215 ? Hose Tester: ? Procedure Note Donorestesmaloubestter, Image - 02/24/[address] [address] Nuclear Medicine Report Signed Patient: Maged Cast#: [id number] : 1975Acct:[id number] Age/Sex: 49 / FADM Date: 02/09/25 Loc: CATALINA Attending Dr: Margaret ALMANZA Ordering Physician: Margaret Holman Date of Service: 02/09/25 Procedure(s): NM cardiolite stress test Accession Number(s): [id number] cc: Shereen Latham MD; Margaret Holman EXERCISE [...] 02/24/25 1108 DD/ 0930 TD/TT: 02/22/25 1215 Hose Tester: [facility] External Provider CV STRE SS PROCEDURES Edited Result - Final Performing Organization Address [facility] Co de Phone Number [facility]AG[facility] [address] [place] [phone] * Magnesium (02/07/2025 9:49 AM EDT) Only the most recent of3 resultswithin the time period is included. [facility] Magnesium 1.7 1.6 - 2.6 mg/dL [facility] Blood Venous blood specimen / Unknown 02/07/2025 9:49 AM EDT 02/07/2025 11:07 AM EDT Shereen Latham MD LAB BLOOD ORDERABLES Final Result Performing Organization Address [facility] de Phone Number [facility] [address] [place] [phone] * D Dimer High Sensitivity (01/19/2025 4:33 PM EDT) [facility] D Dimer High Sensitivity <150 NG/ML [facility] Comment:D-DIMER HS REFERENCE RANGENote: Our assay [...] ORDERAB LES Final Result Performing Organization Address [facility] de Phone Number [facility] [address] [place] [phone] * High Sensitivity Troponin I (01/19/2025 4:33 PM EDT) Only the most recent of2 resultswithin the time period is included. [facility] TROPONIN I HIGH SENSITIVITY 7.8 <3.5 - 17.0 ng/L [facility] Comment:The Henriquez high sens itivity Troponin-I results should beused in conjunction with other diagnostic information suchas ECG, clinical observations and information, and patientsymptoms to aid in the diagnosis of IA. 01/19/2025 4:33 PM EDT 01/19/2025 4:34 PM EDT us Generic External Data Provider LAB BLOOD ORDERAB LES Final Result Performing Organization Address [facility] Phone [facility] [address] [place] [phone] * B Type Natriuretic Peptide (BNP) (01/19/2025 4:33 PM EDT) Only the most recent of2 resultswithin the time period is included. B Type Natriuretic Peptide 22 <100 pg/mL [facility] 01/19/2025 4:33 PM EDT 01/19/2025 4:34 PM EDT us Generic External Data Provider LAB BLOOD ORDERAB LES Final Result Performing Organization Address [facility] Co de Phone Number [facility] [address] [place] [address] [phone] * (ABNORMAL) CBC auto differential (12/29/2024 10:53 AM EST) Only the most recent of3 resultswithin the time period is included. White Blood Count 13.5(H) 4.8 - 10.8 X10*3/uL [facility] Red Blood Count 3.97(L) 4.20 - 5.50 X10*6/uL [facility] Hemoglobin 11.4(L) 12.0 - 16.0 g/dl [facility] Hematocrit 36.4(L) 37.0 - 47.0 % [facility] Mean Corpuscular Volume 91.7 80.0 - 98.0 fL [facility] Mean Corpuscular Hemoglobin 28.7 27.0 - 33.0 pg [facility] Mean Corpuscular HGB Conc 31.3 31.0 - 35.0 g/dl [facility] Red Cell Distribution Width 14.8 11.0 - 16.0 % [facility] Platelet Count 370 160 - 400 X10*3/uL [facility] Mean Platelet Volume 10.2 9.4 - 12.3 fL [facility] Neutrophils Percent Auto 70.1 45 - 73 % [facility] Imm Gran Pct Auto 1.8(H) 0.0 - 0.4 % [facility] Lymphocytes Percent Auto 18.9(L) 20 - 40 % [facility] Monocytes Percent Auto 7.8 2 - 11 % [facility] Eosinophils Percent Auto 0.7 0 - 4 % [facility] Basophils Percent Auto 0.7 0 - 2 % [facility] NRBC Pct Auto 0.0 0.0 - 0.2 /100WBC [facility] Neutrophils Absolute Auto 9.5(H) 2.0 - 8.3 x10*3/uL [facility] Imm Gran Abs Auto 0.25(H) 0.00 - 0.03 X10*3/uL [facility] Lymphocytes Absolute Auto 2.6 1.2 - 4.9 X10*3/uL [facility] Monocytes Absolute Auto 1.1 0.1 - 1.2 X10*3/uL [facility] Eosinophils Absolute Auto 0.1 0.0 - 0.4 X10*3/uL [facility] Basophils Absolute Auto 0.1 0.0 - 0.2 X10*3/uL [facility] NRBC Abs Auto 0.000 0.0 - 0.012 X10*3/uL [facility] 12/29/2024 10:5 3 AM EST 12/29/2024 1:06 PM EST us Generic External Data Provider LAB BLOOD ORDERAB LES Final Result Performing Organization Address [facility]/ZIP Co de Phone Number [facility] [address] [place] [phone] * (ABNORMAL) Uric acid (12/29/2024 10:53 AM EST) Uric Acid 5.8(H) 2.4 - 5.7 mg/dL [facility] Blood Venous blood specimen / Unknown 12/29/2024 10:53 AM EST 12/29/2024 1:06 PM EST us Shereen Latham MD LAB BLOOD ORDERABLES Final Result Performing Organization Address [facility]/ZIP Co de Phone Number [facility] [address] [place] [phone] * (ABNORMAL) Lipid Panel, Standard (12/29/2024 10:53 AM EST) Triglycerides 192(H) <150 mg/dL [facility] Comment:Desirable Triglyceri de: less than 150 mg/dLBorderline High Triglyceride 150-199 mg/dLHigh Triglyceride: 200-499 mg/dLVery High Triglyceride: greater than or equal to 5OO mg/dL Cholesterol 197 <200 mg/dL [facility] Comment:Desirable Cholestero l: less than 200 mg/dLBorderline High Cholesterol: 200-239 mg/dLHigh Cholesterol: greater than 239 mg/dL LDL Cholesterol Calculated 111(H) <100 mg/dL [facility] Comment:Desirable LDL: less than 100 mg/dLNear Optimal/Above Optimal LDL: 110- 129 mg/dLBorderline High LDL: 130-159 mg/dLHigh LDL: 160-189 mg/dLVery High LDL: greater than or equal to 190 mg/dL HDL Cholesterol 48 >40 mg/dL [facility] Comment:Desirable HDL: great er than 40 mg/dL Note: This HDL assay may give artificially low results in patients with liver disease. Blood Venous blood specimen / Unknown 12/29/2024 10:53 AM EST 12/29/2024 1:06 PM EST us Shereen Latham MD LAB BLOOD ORDERABLES Final Result [facility] [address] [place] [phone] * (ABNORMAL) Basic Metabolic Panel (12/29/2024 10:53 AM EST) Sodium 139 135 - 145 mmol/L [facility] Potassium 4.1 3.3 - 5.1 mmol/L [facility] Chloride 105 96 - 108 mmol/L [facility] Carbon Dioxide 23 22 - 29 mmol/L [facility] Anion Gap 15 12 - 20 [facility] Urea Nitrogen (BUN) 32(H) 9 - 16 mg/dL [facility] Creatinine, Serum 0.91 0.5 - 1.4 mg/dL [facility] Estimated Glomerular Filt Rate >60 [facility] Comment:Chronic Kidney Disea se: Estimated GFR < 60 mL/min/1.91l4Lxkyom Kidney Disease: Estimated GFR < 15 mL/min/1.73m2 Glucose 161(H) 60 - 115 mg/dL [facility] Calcium 9.3 8.4 - 10.2 mg/dL [facility] Blood Venous blood specimen / Unknown 12/29/2024 10:53 AM EST 12/29/2024 1:06 PM EST us Shereen Latham MD LAB BLOOD ORDERABLES Final Result [facility] [address] [facility] [place] [phone] [phone] * XR Knee 1-2 Views Right (12/20/2024 7:45 AM EST) Anatomical Region Laterality Modality Lower Extremities, Knee Right Radiogra phic Imaging 12/20/2024 7:45 AM EST Narrative 12/20/2024 8:20 AM EST ? [facility] ?[address] ?[place] [address] ?XRay Report ? Signed ? Patient: Cast,Azra ?MR#: [id number] ?? 3774 ? : 1975 ?Acct:[id number] ? Age/Sex: 49 / F ?ADM Date: 12/20/24 ? Loc: HO.ED ? Attending Dr: ? Ordering Physician: Boby Dykes MD ?? Date of Service: 12/20/24 ?? Procedure(s): XR knee RT 2V ?? Accession Number(s): [id number] ? cc: Shereen Latham MD; Boby Dykes [...] signed by Akbar Galicia MD in OV> ?12/20/24816 ? DD/ 0745 ? TD/TT: 12/20/24 0751 ? Hose Tester: ? Procedure Note Donotleonater, Image - 12/20/[address] [address] XRay Report Signed Patient: Maged Cast#: [id number] : 1975Acct:[id number] Age/Sex: 49 / FADM Date: 12/20/24 Loc: HO.ED Attending Dr: Ordering Physician: Boby Dykes MD Date of Service: 12/20/24 Procedure(s): XR knee RT 2V Accession Number(s): [id number] cc: Shereen Latham MD; Boby Dykes MD [...] OV> 12/20/24 0817 DD/ 0745 TD/TT: 12/20/24 075 Hose Tester: [facility] External Provider IMG XR PROCEDURES Edited Result - Final * XR Chest 1 View (12/11/2024 12:34 AM EST) Anatomical Region Laterality Modality Chest Radiographic Celina ging 12/11/2024 12:3 4 AM EST Narrative 12/11/2024 12:37 AM EST ? [facility] ?[address] ?[place], [place] [address] ?XRay Report ? Signed ? Patient: Segun,Azra ?MR#: [id number] ?? 3774 ? : 1975 ?Acct:[id number] ? Age/Sex: 49 / F ?ADM Date: 12/10/24 ? Loc: HO.ED ? Attending Dr: ? Ordering Physician: Sury Bustamante MD ?? Date of Service: 12/10/24 ?? Procedure(s): XR chest 1V ?? Accession Number(s): [id number] ? cc: Shereen Latham MD; uSry Bustamante MD ? CLINICAL HISTORY: chest pain cough ? 1 view chest x-ray ? Comparison: CR/ID - XR CHEST 2V - 10/31/24 17:50 [...] DD/ 0034 ? TD/TT: 12/11/24 0034 ? Hose Tester: ? Procedure Note Sumi, Image - 12/11/[address] [address] XRay Report Signed Patient: Maged Cast#: [id number] : 1975Acct:[id number] Age/Sex: 49 / FADM Date: 12/10/24 Loc: HO.ED Attending Dr: Ordering Physician: Sury Bustamante MD Date of Service: 12/10/24 Procedure(s): XR chest 1V Accession Number(s): [id number] cc: Shereen Latham MD; Sury Bustamante MD CLINICAL HISTORY: chest pain cough 1 view chest x-ray Comparison: CR/ID - XR CHEST 2V - 10/31/24 17:50 EST Findings: No consolidation or effusion. Heart size is normal. No acute fracture. Right breast implant. IMPRESSION: 1. No acute cardiopulmonary findings. This document has been electronically signed by: Ashley Vazquez MD on 12/11/2024 00:34:57 Dictated By: Ashley Vazquez MD Signed By: <Electronically signed by Ashley Vazquez MD in OV> 12/11/2435 DD/ TD/TT: 12/11/2433 Hose Tester: [facility] External Provider IMG XR PROCEDURES Final Result * SARS-CoV-2 RNA, Influenza A/B, and RSV RNA, Ql NAAT (12/10/2024 11:48 PM EST) Only the most recent of2 resultswithin the time period is included. Influenza A PCR NEGATIVE Negative [facility] Influenza B PCR NEGATIVE Negative [facility] Resp Syncy Virus RNA Qual PCR NEGATIVE Negative [facility] SARS COV2 PCR NEGATIVE Negative [facility] Comment:All test results mus t [...] use by authorized laboratories.Testing performed on the [employer] GeneXpert utilizingreal-time RT-PCR.All SARS CoV2 and positive influenza A/B results arereported to [facility]. 12/10/2024 11:4 8 PM EST 12/10/2024 11:53 PM EST us Generic External Data Provider LAB MICROBIOLOGY - GENERAL ORDERABLES Final Result [facility] [address] [place] [phone] * (ABNORMAL) Comprehensive Metabolic Panel (12/10/2024 11:48 PM EST) Only the most recent of2 resultswithin the time period is included. Sodium 143 135 - 145 mmol/L [facility] Potassium 3.7 3.3 - 5.1 mmol/L [facility] Chloride 108 96 - 108 mmol/L [facility] Carbon Dioxide 23 22 - 29 mmol/L [facility] Anion Gap 16 12 - 20 [facility] Urea Nitrogen (BUN) 24(H) 9 - 16 mg/dL [facility] Creatinine, Serum 1.11 0.5 - 1.4 mg/dL [facility] Creatinine Clr Calc Pharmacy 69.3 [facility] Comment:Provided height and weight: 170.18 cm,90.7 kg.eGFR (calculated from the MDRD study equation) and eCrCl(calculated from the Cockcroft-Gault equation) are based ondifferent parameters and may not yield comparable results.If eCrCl result is absurd, please check patient'sheight/weight. Estimated Glomerular Filt Rate 52 [facility] Comment:Chronic Kidney Disea se: Estimated GFR < 60 mL/min/1.57r2Zcnwpb Kidney Disease: Estimated GFR < 15 mL/min/1.73m2 Glucose 150(H) 60 - 115 mg/dL [facility] Calcium 9.3 8.4 - 10.2 mg/dL [facility] Bilirubin, Total 0.2 0.0 - 1.0 mg/dL [facility] Aspartate Amino Transferase 19 5 - 31 U/L [facility] Alanine Aminotransferase 14 0 - 31 U/L [facility] Total Protein 7.6 6.5 - 8.0 g/dL [facility] Albumin Level 4.0 3.5 - 5.0 g/dL [facility] Alkaline Phosphatase 87 39 - 117 U/L [facility] 12/10/2024 11:4 8 PM EST 12/10/2024 11:53 PM EST us Generic External Data Provider LAB BLOOD ORDERAB LES Final Result [facility] [address] [facility] [place] [address] [phone] * CT Abdomen Pelvis w/ Contrast (12/06/2024 1:20 PM EST) Anatomical Region Laterality Modality Body, Pelvis, Abdomen Computed T omography 12/06/2024 1:20 PM EST Narrative 12/06/2024 2:00 PM EST ? [facility] ?[address] ?[place] [address] ? CT Scan Report ? Signed ? Patient: Cast,Azra ?MR#: [id number] ?? 3774 ? : 1975 ?Acct:[id number] ? Age/Sex: 49 / F ?ADM Date: 12/06/24 ? Loc: HO.ED ? Attending Dr: ? Ordering Physician: Leighann Ordonez DO ?? Date of Service: 12/06/24 ?? Procedure(s): CT abdomen pelvis w IV con ?? Accession Number(s): [id number] ? cc: Shereen Latham MD; Leighann Ordonez DO ? Report Number: ?? [id number]: Total DLP = ??712.00 mGy-cm ?? EXAMINATION: [...] DD/ 1320 ? TD/TT: 12/06/24 1333 ? Hose Tester: ? Procedure Note Briannamaloumo, Image - 12/06/[address] [address] [address] Scan Report Signed Patient: Maged Cast#: [id number] : 1975Acct:[id number] Age/Sex: 49 / FADM Date: 12/06/24 Loc: HO.ED Attending Dr: Ordering Physician: Leighann Ordonez DO Date of Service: 12/06/24 Procedure(s): CT abdomen pelvis w IV con Accession Number(s): [id number] cc: Shereen Latham MD; Leighann Ordonez DO Report Number: [id number]: Total DLP = 712.00 mGy-cm EXAMINATION: CT [...] 12/06/24 1358 DD/ 1320 TD/TT: 12/06/24 1333 Hose Tester: us [facility] External Provider IMG CT PROCEDURES Final Result * Urinalysis w/reflex microscopic (12/06/2024 11:14 AM EST) Color Urine Yellow [facility] Appearance Urine Clear [facility] PH 6.0 5.0 - 9.0 [facility] Glucose Urine UA Negative Negative mg/dL [facility] Urine Blood Negative Negative [facility] Specific [place] - Urine 1.025 1.005 - 1.025 [facility] Urine Protein Negative Neg-Trace mg/dL [facility] Urine Ketones Negative Negative mg/dL [facility] Nitrite Urine Negative Negative [facility] Leukocyte Esterase Urine Negative Negative [facility] 12/06/2024 11:1 4 AM EST 12/06/2024 11:18 AM EST Narrative [facility] - 12/06/2024 11:22 AM EST Urine, Clean Catch Generic External Data Provider LAB URINE ORDERAB LES Final Result Performing Organization Address [facility]/ZIP Co de Phone Number [facility] [address] [place] [phone] * Lipase (12/06/2024 9:42 AM EST) [facility] Lipase 50 8 - 78 U/L [facility] 12/06/2024 9:42 AM EST 12/06/2024 9:45 AM EST Generic External Data Provider LAB BLOOD ORDERAB LES Final Result Performing Organization Address [facility] de Phone Number [facility] [address] [place] [phone] * (ABNORMAL) Colonoscopy (07/11/2024) [facility] Colonoscopy Abnormal( A) Normal Comment:Herberth Stokes MD ?tubular adenoma x 3 us Herberth Stokes MD HEALTH MAINTENANCE Final Result * Hepatitis Panel, General (06/16/2024 8:22 AM EDT) [facility] Hepatitis A IgM Nonreactive Nonreactive [facility] Comment:IgM antibodies to VIRAMONTES V not detected; does not exclude earlyacute or recovered HAV infection. ~Hepatitis B Surface Antibody REACTIVE Nonreactive [facility] Comment:REACTIVE: > 11.99 mI U/mL Hepatitis B Core Antibody Nonreactive Nonreactive [facility] Hepatitis C Antibody Nonreactive Nonreactive [facility] Comment:Antibodies to HCV no t detected; does not exclude early acuteHCV infection. Hepatitis B Surface Ag Negative Negative [facility] Blood Venous blood specimen / Unknown 06/16/2024 8:22 AM EDT 06/16/2024 11:18 AM EDT Shereen Latham MD LAB BLOOD ORDERABLES Final Result Performing Organization Address City/[facility]/ZIP Co de Phone Number [facility] [address] [place] [phone] * HIV-1/2 Antigen and Antibodies, Fourth Generation, with Reflexes (02/24/2024 8:47 AM EDT) [facility] HIV AB/AG Nonreactive Nonreactive [facility] Comment:HIV-1 p24 Ag and/or HIV-1/HIV-2 Ab not detected.A test result that is nonreactive does not exclude thepossibility of exposure to or infection with HIV-1 and/orHIV-2. Nonreactive results in this assay for individualswith prior exposure to HIV-1 and/or HIV-2 may be due toantigen and antibody levels that are below the limit ofdetection of this assay.The [employer] HIV Ag/Ab Combo assay result andsupplemental assay results should be interpreted inconjunction with the patient's clinical presentation,history and other laboratory results. If the results areinconsistent with clinical evidence, additional testing issuggested to confirm the result. Blood Venous blood specimen / Unknown 02/24/2024 8:47 AM EDT 02/24/2024 11:22 AM EDT us Naomi ORDAZ LAB BLOOD ORDERABLES Final Resul t Performing Organization Address City/[facility]/ZIP Co de Phone Number [facility] [address] [place] [phone] * (ABNORMAL) Cologuard?? colon cancer screening (08/27/2023 11:24 AM EDT) Pathologist [facility] Cologuard Result Positive( A) Negative 09/05/2023 10:16 PM EDT [facility] (CLIA #:[id number]) Comment: POSITIVE TEST RESULT. A positive Cologuard [...] (Felix Mccoy al, N Engl J Med 2014;370(14):4376-2012.) Cologuard may produce a false negative or false positive result (no colorectal cancer or precancerous polyp present at colonoscopy follow up). A negative Cologuard test result does not guarantee the absence of CRC or advanced adenoma (pre-cancer). The current Cologuard screening interval is every 3 years. ([place] [employer] and U.S. Multi-Society Task Force). Cologuard performance data in a 10,000 patient pivotal study using colonoscopy as the reference method can be accessed at the following location: [email or web address]. Additional description of the Cologuard test process, warnings and precautions can be found at www.[email or web address]. Stool specimen (specimen) 08/27/2023 11:24 AM EDT 08/29/2023 6:48 AM EDT Shereen Latham MD LAB MOLECULAR DIAGNOSTICS ORDERABLES Final Result [facility] (CLIA #:[id number]) [address] [place] [address], * HPV mRNA E6/E7 (08/12/2018 10:57 AM EDT) HPV mRNA E6/E7 Not Detected NOT DETECTED [facility] Comment: This test was performed using the APTIMA(R) HPV Assay ([employer] This assay detects E6/E7 viral messenger RNA (mRNA) from 14 high-risk HPV types (16,18,31,33,35,39,45,51, 52,56,58,59,66,68). For additional information please refer to: http://education.Rally.org/faq/JSZ845z1 (This link is being provided for informational/ educational purposes only.) The analytical performance characteristics of this assay have been determined by [place]. The modifications have not been cleared or approved by the FDA. This assay has been validated pursuant to the CLIA regulations and is used for clinical purposes. Test Performed by [facility], [employer] [facility], [address] [place] [address] Dwaine Morelos M.D., Ph.D., Director of Laboratories , CLIA [id number] Please note: ??Effective 07/14/2016, HPV testing will be performed using [employer] APTIMA test which targets mRNA. Detecting mRNA instead of DNA, as in older methods, offers significant improvements in specificity. 08/12/2018 10:5 7 AM EDT Shereen Latham MD HISTORICAL/NON ORDERABLE L ABS Final Result Performing Organization Address City/[facility]/ZIP Co de Phone Number [facility] [address] from Last 3 Months or Most Recently Relevant to Health Maintenance Insurance [place] [facility] STANDARD [place] * Guarantor: Azra Cast Account Type Relation to Patient Date of Phone Billing Address Personal/Family Self [address] Advance Directives Documents on File Type Date Recorded Patient Sofa Cover Inspector Expl anation Advance Directives and Living Will 07/05/2024 11:59 AM Health Care Proxy Care Teams Marketing Traffic Coordinator Relationship Specialty Start Date End Date [place], [place] Shereen [address] [place] [address] PCP - General Family Medicine 11/02/18 Nupur Bullock, CharleneD 230 [place] [address] Pharmacist Internal Medicine 08/09/24 Sury Benitez [address] [place] [address] Dr [facility] 103 [place] [address] Pulmonary Disease 09/27/24 Nirali Madrid OD 267 [place] [address] Optometry 10/27/24 Li Grande MD 575 [place] [address] Hematology and Oncology 10/27/24 Anselmo Gates MD [address] [place] [address] Orthopaedic Surgery 10/27/24 Margaret Holman [address] 3rd [place] [address] Cardiology 10/27/24 Herberth Stokes MD [address] 3rd [place] [address] Gastroenterology 10/27/24 Hilton Palacios MD [address] [place] [address], [address] [place] [address] Neurology 02/06/25 Pily Delaney Level DesignerSupervisor Blasting 07/22/24 Elie BRASHER [facility] 12/29/24
--- OUTSIDE RECORDS SUMMARY | 2025-03-02 09:38 | XMS_ITS | Encounter Summary ---
Author Organization [email or web address] Address 75 [facility] 7t [place] [address] Care Team Providers Care Newspaper Library Manager Name Role Phone Shereen Latham MD Primary Care Provider [phone] Nupur Bullock PharmD Unavailable Sury Benitez Unavailable [phone] Nirali Madrid OD Unavailable Li Grande MD Unavailable [phone] Anselmo Gates MD Unavailable Margaret Holman Unavailable Herberth Stokes MD Unavailable [phone] Hilton Palacios MD Unavailable Reason for Visit * Reason Comments Med Refill Encounter Details Date Type Department Care Team (Late st Contact Info) Description 12/02/2022 Refill [facility] MEDICINE 230 [place], [place] [phone] Shereen Latham MD 230 [place], [place] [phone] Wheeze (Primary Dx); Pain Social History Tobacco [...] Description 03/02/2025 11:15 AM EDT Office Visit [facility] MEDICINE [address] [place] [address] Shereen Latham MD [address] [place] [address] 03/29/2025 2:00 PM EDT Office Visit [facility] ADULT DENTAL [address] [place] [address] Heidi, Jenny [address] [place] [address] 04/25/2025 2:30 PM EDT Medication Management [facility] MEDICINE [address] [place] [address] Nupur Bullock PharmD [address] [place] [address] 04/26/2025 9:30 AM EDT Office Visit [address] [address] Shereen Latham MD [address] [place] [address] documented as of this encounter Visit Diagnoses Diagnosis Wheeze- Primary Wheezing Pain Generalized pain documented in this encounter Care Teams Newspaper Library Manager Relationship Specialty Start Date End Date Shereen Latham MD [address] [place] [address] PCP - General Family Medicine 11/02/18 Nupur Bullock PharmD [address] [place] [address] Pharmacist Internal Medicine 08/09/24 Sury Benitez [address] [place] [address] [address] [place] [address] Pulmonary Disease 09/27/24 JuliusNirali castellanos OD 267 [place] [address] Optometry 10/27/24 Li Grande MD [address] [place] [address] Hematology and Oncology 10/27/24 Anselmo Gates MD [address] [place] [address] Orthopaedic Surgery 10/27/24 Margaret Holman [address] 3rd [place] [address] Cardiology 10/27/24 Herberth Sotkes MD 11 [facility] 3rd [place] [address] Gastroenterology 10/27/24 Hilton Palacios MD 15 [facility], [address] [place] [address] Neurology 02/06/25 Pily Delaney Director Oracle DatabaseChorus Dancer 07/22/24 Elie Vicky [facility] 12/29/24 documented as of this encounter
--- OUTSIDE RECORDS SUMMARY | 2025-03-02 09:38 | XMS_ITS | Encounter Summary ---
Author Organization [employer] Address 75 [facility] 7t [place] [address] Care Team Providers Care Army Helicopter Pilot Name Role Phone Shereen Latham MD Primary Care Provider [phone] Nupur Bullock PharmD Unavailable Sury Benitez Unavailable [phone] Nirali Madrid OD Unavailable Li Grande MD Unavailable [phone] Anselmo Gates MD Unavailable Margaret Holman Unavailable Herberth Stokes MD Unavailable [phone] Hilton Palacios MD Unavailable Reason for Visit * Reason Onset Date Comments Medication Question 08/25/2024 Encounter Details Date Type Department Care Team (Late st Contact Info) Description 08/25/2024 Telephone [facility] MEDICINE 230 [place], [place] [phone] Shereen Latham MD 230 [place], [place] [phone] Medication Question Social History Tobacco Use Types [...] any questions you can contact pt at [phone]. documented in this encounter Plan of Treatment Upcoming Encounters Date Type Department Care Team (Late st Contact Info) Description 03/02/2025 11:15 AM EDT Office Visit [facility] MEDICINE [address] [place] [address] Shereen Latham MD 230 [place] [address] 03/29/2025 2:00 PM EDT Office Visit [facility] ADULT DENTAL [address] [place] [address] Heidi, Jenny 230 [place] [address] 04/25/2025 2:30 PM EDT Medication Management [facility] MEDICINE [address] [place] [address] Nupur Bullock PharmD [address] [place] [address] 04/26/2025 9:30 AM EDT Office Visit [facility] MEDICINE [address] [place] [address] Shereen Latham MD [address] [place] [address] documented as of this encounter Visit Diagnoses Not on filedocumented in this encounter Additional Health Concerns Assessment Noted Time PHQ-9 Depression Total Score: 13 024 4:53 PM EDT documented as of this encounter Care Teams Army Helicopter Pilot Relationship Specialty Start Date End Date Shereen Latham MD [address] [place] [address] PCP - General Family Medicine 11/02/18 Nupur Bullock, PharmD [address] [place] [address] Pharmacist Internal Medicine 08/09/24 Sury Benitez [address] [facility] [address] [place] [address] Pulmonary Disease 09/27/24 Nirali Madrid OD 267 [place] [address] Optometry 10/27/24 Li Grande MD [address] [place] [address] Hematology and Oncology 10/27/24 Anselmo Gates MD [address] [place] [address] Orthopaedic Surgery 10/27/24 Margaret Holman [address] 3rd [place] [address] Cardiology 10/27/24 Herberth Stokes MD 11 [facility] 3rd [place] [address] Gastroenterology 10/27/24 Hilton Palacios MD 15 [facility], [address] [place] [address] Neurology 02/06/25 Pily Delaney Bond TraderSales Enablement Consultant 07/22/24 Elie Vicky [facility] 12/29/24 documented as of this encounter
[2025-03-02 11:28] LABS: MANUAL DIFF FLAG NO
[2025-03-02 11:35] LABS: Basophils Absolute Auto 0.1 X10*3/uL (0.0-0.2); Eosinophils Absolute Auto 0.3 X10*3/uL (0.0-0.4); Eosinophils Percent Auto 2.8 % (0-4); Hematocrit 34.4 % (37.0-47.0); Hemoglobin 11.2 g/dl (12.0-16.0); Imm Gran Abs Auto 0.05 X10*3/uL (0.00-0.03); Imm Gran Pct Auto 0.5 % (0.0-0.4); Lymphocytes Absolute Auto 2.9 X10*3/uL (1.2-4.9); Mean Corpuscular HGB Conc 32.6 g/dl (31.0-35.0); Mean Corpuscular Hemoglobin 29.1 pg (27.0-33.0); Mean Corpuscular Volume 89.4 fL (80.0-98.0); Mean Platelet Volume 10.9 fL (9.4-12.3); Monocytes Absolute Auto 0.9 X10*3/uL (0.1-1.2); Monocytes Percent Auto 8.8 % (2-11); Neutrophils Absolute Auto 6.1 x10*3/uL (2.0-8.3); Neutrophils Percent Auto 58.9 % (45-73); Platelet Count 389 X10*3/uL (160-400); Red Blood Count 3.85 X10*6/uL (4.20-5.50); Red Cell Distribution Width 14.9 % (11.0-16.0); White Blood Count 10.3 X10*3/uL (4.8-10.8)
[2025-03-02 12:25] LABS: Alanine Aminotransferase 19 U/L (0-31); Albumin Level 4.2 g/dL (3.5-5.0); Alkaline Phosphatase 111 U/L (39-117); Aspartate Amino Transferase 19 U/L (5-31); Bilirubin Direct < 0.2 mg/dL (0.0-0.5); Bilirubin Total 0.2 mg/dL (0.0-1.0); Ferritin 144 ng/mL (10-250); Iron 43 mcg/dL (30-160); Magnesium 1.8 mg/dL (1.6-2.6); Percent Iron Saturation 16 % (15-50); TSH reflex Free T4 1.34 uIU/mL (0.32-4.0); Total Iron Binding Capacity 262 mcg/dL (228-428); Total Protein 7.4 g/dL (6.5-8.0); Unsaturated Iron Binding 219 ug/dL; Uric Acid 5.7 mg/dL (2.4-5.7)
[2025-03-02 12:31] LABS: Folate 17.2 ng/mL (> or = 4.0); Vitamin B12 621 pg/mL (200-900)
== END 2025-03-02 08:59 | disposition home or self-care (01) ==
LOC: HO.HHCL 08:58
PROVIDERS: Visit Provider Family Medicine
DX: Z00.00 Encounter for general adult medical examination without abnormal findings (principal); D50.9 Iron deficiency anemia, unspecified; F10.20 Alcohol dependence, uncomplicated
CPT/HCPCS: 36415; 80076; 82607; 82728; 82746; 83540; 83735; 84443; 84550; 85025

== ENCOUNTER 2025-03-07 11:03 | Outpatient (AMB) | payer MEDICAID, SELFPAY ==
--- NOTE | 2025-03-07 11:09 | MHC.OFFVIS ---
Vital Signs 03/07/25 11:17 Height 5 ft 7 in Weight 202 lb 6 oz BMI 31.7 BP 133/77 Blood Pressure Location Lt brachial Position Sitting Pulse 126 H Intake Visit Reasons: stereo bx L brst 3 o'clock density Intake Note: Patient is seen in office for stereo biopsy for left breast 3 o'clock density. Pt c/o: has felt a lump deep inside the left breast, discomfort, had breast cancer in the right breast 2009, unsure if genetic testing was done, no fm hx of breast cancer, no to breast feeding, first child 19 yrs old Bx sched: 03/08/25 Ocean Lifeguard Specialist Required: No Sports Information Director: Sports Information Director Present Accompanied by: Self / Same As Patient Allergies amoxicillin [AMOXICILLIN] Allergy (Intermediate, Verified 03/07/25 11:19) rash, rash/itching sulfamethoxazole [From BACTRIM] Allergy (Intermediate, Verified 03/07/25 11:19) RASH trimethoprim [From BACTRIM] Allergy (Intermediate, Verified 03/07/25 11:19) RASH hydrocodone [Hydrocodone] Allergy (Mild, Verified 03/07/25 11:19) ITCH ibuprofen [From Motrin] Allergy (Mild, Verified 03/07/25 11:19) UPSET STOMACH latex [Latex] Allergy (Mild, Verified 03/07/25 11:19) ITCH Medication List - Last Reconciled 03/07/25 by Aaron Pringle MD acetaminophen (Tylenol Extra Strength) 500 mg PO Q6H PRN acetaminophen 500 mg PO Q6H PRN [ACL defiance brace n/a] albuterol sulfate 90 mcg/actuation 2 puffs inhalation Q4H PRN albuterol sulfate 2.5 mg (3 mL) inhalation Q4-6H PRN allopurinol 100 mg PO BID cetirizine 10 mg PO DAILY PRN cholecalciferol (vitamin D3) (Vitamin D3) 1 cap PO DAILY fluticasone propion-salmeterol 115-21 mcg/actuation (Advair HFA) 2 puffs inhalation Q12H folic acid 1 tab PO DAILY furosemide 40 mg See Protocol PO DAILY losartan 25 mg See Protocol PO BID magnesium oxide 400 mg PO BIDPC 30 days metoprolol succinate ER 25 mg PO DAILY omeprazole 1 cap PO DAILY@0630 spironolactone 12.5 mg (1/2 x 25 mg) PO QAM 90 days thiamine HCl (vitamin B1) 1 tab PO DAILY HPI Comments Details: 49-year-old female patient presenting with a recent mammogram performed on 02/23/2025 because of pain in the left breast at the upper outer quadrant. This revealed a new focal asymmetry in the central outer breast posterior depth with questioned distortion without sonographic correlate. She has a prior history of a right breast cancer and subsequently underwent mastectomy followed by breast reconstruction. She also underwent chemotherapy but denies radiation therapy. She also underwent mastopexy of the left breast. She continues to follow with Dr. Grande for her oncologic follow-up. She reports pain in the outer left breast since the mastopexy. She denies any new palpable masses. Her family history is positive for breast cancer in several cousins. She is 6 para 3 and had her 1st child when she was 19. Her menarche was at the age of 7. [facility] Medical History Depression Anxiety and depression Lower back pain History of COVID-19 Uncontrolled hypertension Panic attack H/O ETOH abuse Anxiety History of low potassium Breast cancer Hypertension Surgical History History of carpal tunnel release Hx of tubal ligation History of breast lump/mass excision H/O: hysterectomy Family History Mother Heart disease Alzheimers disease Social History Household Members: None Housing: Apartment Housing Other:: 4th floor. No elevator Are you a primary pet caregiver to a significant other at home: No Do you presently have visiting nurse or other home services: Yes (Melting Supervisor twice daily) Alcohol intake: former Comment: 1:1 SI Patient Tobacco Use Status: Current someday Tobacco user Tobacco use type: Cigarette Cigarettes Per Day: 5 Years Smoked: 38YRS e-Cigarette/Vaping Use: Never Used Second Hand Smoke Exposure: Yes Advance Directives Date on File: 02/11/22 service: No Current occupational status: disabled Female Reproductive History Menstrual Age of Menarche: 7 Total pregnancies: 6 Number of Living Children: 3 Ab spontaneous: 3 Review of Systems Const All systems reviewed & are unremarkable except as noted in HPI and below Physical Exam Const General: cooperative and no acute distress Nutritional Appearance: well nourished Orientation/consciousness: patient oriented x3 Limitations: no limitations HEENT Head: Yes normocephalic and Yes atraumatic Ears: hearing grossly normal bilaterally Chest Other: Right breast: Status post right modified radical mastectomy with reconstruction. Palpable implant noted. No overlying skin changes or palpable masses. No enlarged lymph nodes in the right axilla. Left breast: Status post mastopexy. Tenderness noted in the upper outer and lower outer quadrants. No new skin changes, nipple discharge, palpable mass or enlarged lymph nodes. Resp Effort & Inspection: normal respiratory effort, no audible wheezes, no cough and no respiratory distress Cardio Jugular venous distension: no JVD GI Inspection: Yes normal to inspection Skin Other: Warm, dry, no rash Neuro General: patient oriented x3 Extrem General: Yes no clubbing, cyanosis or edema Assessment & Plan Assessment & Plan (1) Abnormal mammogram of left breast: Code(s): R92.8 - Other abnormal and inconclusive findings on diagnostic imaging of breast Category: Medical (2) Malignant neoplasm of breast: Comment: Right breast Code(s): C50.919 - Malignant neoplasm of unspecified site of unspecified female breast Category: Medical Qualifiers: Breast location: unspecified site of breast Patient sex: female Laterality: right Plan 49-year-old female patient with a prior history of right breast cancer presenting with a new suspicious finding on the left mammogram performed on 02/23/2025. No ultrasound correlate could be identified. She is scheduled for a stereotactic guided core biopsy tomorrow at the [facility]. On examination no palpable masses appreciated although there is tenderness in this location. No other suspicious findings are appreciated. I recommended she return approximately 1 week to review the pathology results and discuss treatment options. She expressed understanding and agrees with the plan. Orders: Orders MM stereotactic biopsy LT Today C50.919 - Malignant neoplasm of unspecified site of unspecified female breast, R92.8 - Other abnormal and inconclusive findings on diagnostic imaging of breast Coding Level of Care Code New Pt Level 4 (05493) Diagnoses Abnormal mammogram of left breast R92.8 Malignant neoplasm of breast C50.919 Breast location: unspecified site of breast Patient sex: female Laterality: right
[2025-03-07 11:17] VITALS: BP 133/77; PULSE 126; BMI 31.7
--- OUTSIDE RECORDS SUMMARY | 2025-03-07 12:50 | XMS_ITS | Encounter Summary ---
Author Organization [employer] Address 75 [facility] 7 [place] [address] Care Team Providers Care E Business Specialist Name Role Phone Shereen Latham MD Primary Care Provider [phone] Nupur Bullock PharmD Unavailable [phone] Sury Benitez Unavailable [phone] Nirali Madrid OD Unavailable Li Grande MD Unavailable Anselmo Gates MD Unavailable Margaret Holman Unavailable Herberth Stokes MD Unavailable [phone] Hilton Palacios MD Unavailable Reason for Visit * Reason Onset Date Comments Nurse Triage 05/25/2024 Encounter Details Date Type Department Care Team (Late st Contact Info) Description 05/25/2024 Telephone [facility] MEDICINE 230 [place], [place] [phone] Shereen Latham MD 230 [place], [place] [phone] Nurse Triage Social History Tobacco Use Types [...] . Pt reports Pt was seen in [facility] 05/11/24 for continued leftfoot pain and Pt was seen by corn grinder, Leta Lunsford MD 05/11/24 also (report is on the chart). Pt had been advised to stop BP med chlorthalidone per corn grinder [facility] because that particular medication is known to [...] anxiety. Pt is advised to come to [facility] today , open till 8pm, to be [...] Care Team (Late st Contact Info) Description 03/29/2025 2:00 PM EDT Office Visit [facility] ADULT DENTAL 230 [place] [address] Jeramie Gordonaris 230 [place] [address] 04/25/2025 2:30 PM EDT Medication Management [facility] MEDICINE [address] [place] [address] Nupur Bullock PharmD [address] [place] [address] 04/26/2025 9:30 AM EDT Office Visit [facility] MEDICINE [address] [place] [address] Shereen Latham MD [address] [place] [address] documented as of this encounter Visit Diagnoses Not on filedocumented in this encounter Additional Health Concerns Assessment Noted Time PHQ-9 Depression Total Score: 22 024 9:12 AM EDT documented as of this encounter Care Teams E Business Specialist Relationship Specialty Start Date End Date Shereen Latham MD [address] [place] [address] PCP - General Family Medicine 11/02/18 Nupur Bullock PharmD [address] [place] [address] Pharmacist Internal Medicine 08/09/24 Sury Benitez [address] [place] [address] Pulmonary Disease 09/27/24 Nirali Madrid OD [address] [place] [address] Optometry 10/27/24 Li Grande MD [address] [place] [address] Hematology and Oncology 10/27/24 Anselmo Gates MD [address] [place] [address] Orthopaedic Surgery 10/27/24 Margaret Holman [address] 3rd [place] [address] Cardiology 10/27/24 Herberth Stokes MD [address] 3rd [place] [address] Gastroenterology 10/27/24 Hilton Palacios MD [address] [facility] [facility] [address] [place] [address] Neurology 02/06/25 Pily Delaney Insurance ExecutiveTourist Information Officer 07/22/24 Elie BRASHER [facility] 12/29/24 documented as of this encounter
--- OUTSIDE RECORDS SUMMARY | 2025-03-07 12:50 | XMS_ITS | Encounter Summary ---
Author Organization [email or web address] Address 75 [facility] 7 [place] [address] Care Team Providers Care Transit Clerk Name Role Phone Shereen Latham MD Primary Care Provider [phone] Nupur Bullock PharmD Unavailable Sury Benitez Unavailable [phone] Nirali Madrid OD Unavailable [phone] Li Grande MD Unavailable [phone] Anselmo Gates MD Unavailable Margaret Holman Unavailable Herberth Stokes MD Unavailable [phone] Hilton Palacios MD Unavailable Encounter Details Date Type Department Care Team (Late st Contact Info) Description 05/02/2024 Orders Only [facility] MEDICINE 230 [place], [place] [phone] Shereen Latham MD 230 [place], [place] [phone] Gout, unspecified cause, unspecified chronicity, unspecified site [...] Description 03/29/2025 2:00 PM EDT Office Visit [facility] ADULT DENTAL 230 [place] [address] Heidi Jneny 230 [place] [address] 04/25/2025 2:30 PM EDT Medication Management [facility] MEDICINE [address] [place] [address] Nupur Bullock PharmD 230 [place] [address] 04/26/2025 9:30 AM EDT Office Visit [facility] MEDICINE [address] [place] [address] Shereen Latham MD 230 [place] [address] documented as of this encounter Visit Diagnoses Diagnosis Gout, unspecified cause, unspecified chronicity, unspecified site- Primary documented in this encounter Additional Health Concerns Assessment Noted Time PHQ-9 Depression Total Score: 23 024 1:45 PM EDT documented as of this encounter Care Teams Transit Clerk Relationship Specialty Start Date End Date Shereen Latham MD 230 [place] [address] PCP - General Family Medicine 11/02/18 Nupur Bullock, CharleneD [address] [place] [address] Pharmacist Internal Medicine 08/09/24 Sury Benitez [address] [place] [address] Dr [facility] 103 [place] [address] Pulmonary Disease 09/27/24 Nirali Madrid OD [address] [place] [address] Optometry 10/27/24 Li Grande MD [address] [place] [address] Hematology and Oncology 10/27/24 Anselmo Gates MD [address] [place] [address] [address] [place] [address] Orthopaedic Surgery 10/27/24 Margaret Holman [address] 3rd [place] [address] Cardiology 10/27/24 Herberth Stokes MD [address] [facility] [address]rd [place] [address] Gastroenterology 10/27/24 Hilton Palacios MD [address] [place] [address], [address] [place] [address] Neurology 02/06/25 Pily Delaney High School Music InstructorLag Screwer 07/22/24 Elie Vicky [facility] Psychology 12/29/24 documented as of this encounter
--- OUTSIDE RECORDS SUMMARY | 2025-03-07 12:51 | XMS_ITS | Encounter Summary ---
Author Organization [employer] Address 75 [facility] 7 [place] [address] Care Team Providers Care Contract Assistant Name Role Phone Shereen Latham MD Primary Care Provider [phone] Nupur Bullock PharmD Unavailable Sury Benitez Unavailable [phone] Nirali Madrid OD Unavailable [phone] Li Grande MD Unavailable [phone] Anselmo Gates MD Unavailable Margaret Holman Unavailable Herberth Stokes MD Unavailable [phone] Hilton Palacios MD Unavailable Reason for Visit * Reason Onset Date Comments Medication Question 08/25/2024 Encounter Details Date Type Department Care Team (Late st Contact Info) Description 08/25/2024 Telephone [facility] MEDICINE 230 [place], [place] [phone] Shereen Latham MD 230 [place], [place] [phone] Medication Question Social History Tobacco Use Types [...] any questions you can contact pt at [phone]. documented in this encounter Plan of Treatment Upcoming Encounters Date Type Department Care Team (Late st Contact Info) Description 03/29/2025 2:00 PM EDT Office Visit [facility] ADULT DENTAL 230 [place] [address] Heidi, Jenny 230 [place] [address] 04/25/2025 2:30 PM EDT Medication Management [facility] MEDICINE [address] [place] [address] Nupur Bullock PharmD [address] [place] [address] 04/26/2025 9:30 AM EDT Office Visit [facility] MEDICINE [address] [place] [address] Shereen Latham MD [address] [place] [address] documented as of this encounter Visit Diagnoses Not on filedocumented in this encounter Additional Health Concerns Assessment Noted Time PHQ-9 Depression Total Score: 13 024 4:53 PM EDT documented as of this encounter Care Teams Contract Assistant Relationship Specialty Start Date End Date Shereen Latham MD [address] [place] [address] PCP - General Family Medicine 11/02/18 Nupur Bullock, PharmD [address] [place] [address] Pharmacist Internal Medicine 08/09/24 Sury Benitez [address] [place] [address] [place] [address] [place] [address] Pulmonary Disease 09/27/24 Nirali Madrid OD [address] [place] [address] Optometry 10/27/24 Li Grande MD 575 [place] [address] Hematology and Oncology 10/27/24 Anselmo Gates MD [address] [facility] [address] [place] [address] Orthopaedic Surgery 10/27/24 Margaret Holman [address] 3rd [place] [address] Cardiology 10/27/24 Herberth Stokes MD 11 [facility] 3rd [place] [address] Gastroenterology 10/27/24 Hilton Palacios MD 15 [facility], [address] [place] [address] Neurology 02/06/25 Pily Delaney Agricultural Engineering TechniciansProduction Ski Repairer 07/22/24 Elie Vicky [facility] 12/29/24 documented as of this encounter
--- OUTSIDE RECORDS SUMMARY | 2025-03-07 12:51 | XMS_ITS | Encounter Summary ---
Author Organization [employer] Address [address] [facility] 7 [place] [address] Care Team Providers Care Mercantile Reporter Name Role Phone Shereen Latham MD Primary Care Provider [phone] Nupur Bullock PharmD Unavailable [phone] Sury Benitez Unavailable [phone] Nirali Madrid OD Unavailable Li Grande MD Unavailable [phone] Anselmo Gates MD Unavailable Margaret Holman Unavailable Herberth Stokes MD Unavailable [phone] Hilton Palacios MD Unavailable [phone] Reason for Visit * Reason Onset Date Comments Nurse Triage 01/25/2024 Referral 01/25/2024 Encounter Details Date Type Department Care Team (Late st Contact Info) Description 01/25/2024 Telephone [facility] [address] [place], [place] [phone] Shereen Latham MD [address] [place], [place] [phone] Nurse Triage; Referral Social History Tobacco Use [...] vary. Pt wants to be referred to [facility] [address] [facility] [address] [place] [address]. Ad[employer]sed will send to team to review [...] Description 03/29/2025 2:00 PM EDT Office Visit [facility] ADULT DENTAL [address] [place] [address] Heidi, Jenny [address] [place] [address] 04/25/2025 2:30 PM EDT Medication Management [facility] [address] [place] [address] Nupur Bullock, CharleneD [address] [place] [address] 04/26/2025 9:30 AM EDT Office Visit [facility] [address] [place] [address] Shereen Latham MD [address] [place] [address] documented as of this encounter Visit Diagnoses Not on filedocumented in this encounter Additional Health Concerns Assessment Noted Time PHQ-9 Depression Total Score: 21 023 10:42 AM EST documented as of this encounter Care Teams Mercantile Reporter Relationship Specialty Start Date End Date Shereen Latham MD [address] [place] [address] PCP - General Family Medicine 11/02/18 Nupur Bullock, CharleneD [address] [place] [address] Pharmacist Internal Medicine 08/09/24 Sury Benitez [address] [place] [address] [address] [place] [address] Pulmonary Disease 09/27/24 Nirali Madrid OD [address] [place] [address] Optometry 10/27/24 Li Grande MD [address] [place] [address] Hematology and Oncology 10/27/24 Anselmo Gates MD [address] [facility] [address] [place] [address] Orthopaedic Surgery 10/27/24 Margaret Holman [address] [facility] 3rd [place] [address] Cardiology 10/27/24 Herberth Stokes MD [address] [facility] 3rd [place] [address] Gastroenterology 10/27/24 Hilton Palacios MD [address] [place] [address], [address] [place] [address] Neurology 02/06/25 Pily Delaney Php Website DeveloperCommercial Insurance Underwriter 07/22/24 Elie BRASHER [facility] Psychology 12/29/24 documented as of this encounter
--- OUTSIDE RECORDS SUMMARY | 2025-03-07 12:51 | XMS_ITS | Encounter Summary ---
Author Organization [employer] Address [address] [facility] 7t [place] [address] Care Team Providers Care Fiscal Analyst Name Role Phone Shereen Latham MD Primary Care Provider Nupur Bullock PharmD Unavailable [phone] Sury Benitez Unavailable [phone] Nirali Madrid OD Unavailable Li Grande MD Unavailable [phone] Anselmo Gates MD Unavailable Margaret Holman Unavailable Herberth Stokes MD Unavailable [phone] Hilton Palacois MD Unavailable Reason for Referral * Consultation (Routine) - Closed Specialty Diagnoses / Procedures Referred By Walter nelson Referred To Contact Obstetrics and Gynecology Diagnoses Women's annual routine gynecological examination Stacey Khan MD [address] [place] [address] Phone: tel: fax: [facility] Women? s Services [address] 5[address] (Main Hospital Entrance) [place], [place] Phone: tel: fax: Referral ID Status Reason Start Date Expiration Date V isits Requested Visits Authorized [id number] Closed Specialty Services Required 01/19/2025 01/19/2026 9 9 Encounter Details Date Type Department Care Team (Late st Contact Info) Description 01/19/2025 Orders Only [facility] MEDICINE [address] [place] [address] Stacey Khan MD [address] [place], [place] [phone] Women's annual routine gynecological examination (Primary Dx) [...] Description 03/29/2025 2:00 PM EDT Office Visit [facility] ADULT DENTAL [address] [place] [address] Heidi, Jenny [address] [place] [address] 04/25/2025 2:30 PM EDT Medication Management [facility] MEDICINE [address] [place] [address] Nupur Bullock PharmD [address] [place] [address] 04/26/2025 9:30 AM EDT Office Visit [facility] MED[facility]INE [address] [place] [address] Shereen Latham MD [address] [place] [address] Scheduled Referrals Name Type Priority Associated Diagnoses [...] 4:33 PM EDT) [facility] TROPONIN I HIGH SENSITIVITY 7.8 <3.5 - 17.0 ng/L [facility] Comment:The Henriquez high sens itivity Troponin-I results should beused in conjunction with other diagnostic information suchas ECG, clinical observations and information, and patientsymptoms to aid in the diagnosis of [place]. 01/19/2025 4:33 PM EDT 01/19/2025 4:34 PM EDT Generic External Data Provider LAB BLOOD ORDERAB LES Final Result Performing Organization Address [facility] Co de Phone Number [facility] [address] [place] [phone] * B Type Natriuretic Peptide (BNP) (01/19/2025 4:33 PM EDT) [facility] B Type Natriuretic Peptide 22 <100 pg/mL [facility] 01/19/2025 4:33 PM EDT 01/19/2025 4:34 PM EDT Generic External Data Provider LAB BLOOD ORDERAB LES Final Result Performing Organization Address [facility]/ZIP Co de Phone Number [facility] [address] [place] [phone] * D Dimer High Sensitivity (01/19/2025 4:33 PM EDT) [facility] D Dimer High Sensitivity <150 NG/ML [facility] Comment:D-DIMER HS REFERENCE RANGENote: Our assay [...] Provider LAB BLOOD ORDERAB LES Final Result [facility] [address] [place] [phone] documented in this encounter Visit Diagnoses Diagnosis Women's annual routine gynecological examination- Primary documented in this encounter Additional Health Concerns Assessment Noted Time PHQ-9 Depression Total Score: 22 025 10:17 AM EST documented as of this encounter Care Teams Fiscal Analyst Relationship Specialty Start Date End Date Shereen Latham MD [address] [place] [address] PCP - General Family Medicine 11/02/18 Nupur Bullock, CharleneD [address] [place] [address] Pharmacist Internal Medicine 08/09/24 Sury Benitez [address] [place] [address] Dr [facility] [address] [place] [address] Pulmonary Disease 09/27/24 Nirali Madrid OD [address] [place] [address] Optometry 10/27/24 Li Grande MD [address] [place] [address] Hematology and Oncology 10/27/24 Anselmo Gates MD [address] [place] [address] Orthopaedic Surgery 10/27/24 Margaret Holman [address] 3rd [place] [address] Cardiology 10/27/24 Herberth Stokes MD [address] 3rd Floor [place] [address] Gastroenterology 10/27/24 Hilton Palacios MD [address] [place] [address], [address] [place] [address] Neurology 02/06/25 Pily Delaney Manager EquipmentAirplane Pilot Crop Dusting 07/22/24 Elie Vicky [facility] Psychology 12/29/24 documented as of this encounter
--- OUTSIDE RECORDS SUMMARY | 2025-03-07 12:51 | XMS_ITS | Encounter Summary ---
Author Organization [employer] Address [address] [facility] 7 [place] [address] Care Team Providers Care Rn Infusion Name Role Phone Shereen Latham MD Primary Care Provider [phone] Nupur Bullock PharmD Unavailable Sury Benitez Unavailable [phone] Nirali Madrid OD Unavailable [phone] Li Grande MD Unavailable [phone] Anselmo Gates MD Unavailable Margaret Holman Unavailable Herberth Stokes MD Unavailable [phone] Hilton Palacios MD Unavailable [phone] Reason for Visit * Reason Comments Med Refill Encounter Details Date Type Department Care Team (Late st Contact Info) Description 01/17/2025 Refill [facility] MED & PEDS [address] [place], [place] [phone] Shereen Latham MD [address] [place], [place] [phone] Pain Social History Tobacco Use Types Packs/Day [...] Description 03/29/2025 2:00 PM EDT Office Visit [facility] ADULT DENTAL [address] [place] [address] Jenny Gordon [address] [place] [address] 04/25/2025 2:30 PM EDT Medication Management [facility] MEDICINE [address] [place] [address] Nupur Bullock, PharmD [address] [place] [address] 04/26/2025 9:30 AM EDT Office Visit [facility] MEDICINE [address] [place] [address] Shereen Latham MD [address] [place] [address] documented as of this encounter Visit Diagnoses Diagnosis Pain Generalized pain documented in this encounter Additional Health Concerns Assessment Noted Time PHQ-9 Depression Total Score: 22 025 10:17 AM EST documented as of this encounter Care Teams Rn Infusion Relationship Specialty Start Date End Date Shereen Latham MD [address] [place] [address] PCP - General Family Medicine 11/02/18 Nupur Bullock, PharmD [address] [place] [address] Pharmacist Internal Medicine 08/09/24 Sury Benitez [address] [place] [address] Dr [facility] [address] [place] [address] Pulmonary Disease 09/27/24 Nirali Madrid OD [address] [place] [address] Optometry 10/27/24 Li Grande MD [address] [place] [address] Hematology and Oncology 10/27/24 Anselmo Gates MD [address] [place] [address] Orthopaedic Surgery 10/27/24 Margaret Holman [address] 3rd [place] [address] Cardiology 10/27/24 Herberth Stokes MD [address]rd [place] [address] Gastroenterology 10/27/24 Hilton Palacios MD [address] [place] [address], [address] [place] [address] Neurology 02/06/25 Pily Delaney Calibration EngineerOil Program Compliance Specialist 07/22/24 Elie Vicky [facility] Psychology 12/29/24 documented as of this encounter
--- OUTSIDE RECORDS SUMMARY | 2025-03-07 12:51 | XMS_ITS | Clinical Summary ---
Author Organization [employer] Address [address] [facility] 7 [place] [address] Care Team Providers Care Telecommunications Sales Representative Name Role Phone Shereen Latham MD Primary Care Provider [phone] Nupur Bullock PharmD Unavailable Sury Benitez Unavailable [phone] Nirali Madrid OD Unavailable Li Grande MD Unavailable [phone] Anselmo Gates MD Unavailable Margaret Holman Unavailable Herberth Stokes MD Unavailable [phone] Hilton Palacios MD Unavailable [phone] Allergies Active Allergy Reactions Criticality Noted Date [...] OF BREATH 18 g 10/18/20 24 Active spironolactone (Aldactone) 25 MG tabletIndicatio [...] MORNING 90 capsule 3 01/11/20 25 Active losartan (Cozaar) 25 [...] by mouth at bedtime. 01/21/20 25 Active sodium chloride (Barton) 0.65 % nasal sprayIndication s:Nasal congestion Administer 1 spray into each nostril if needed for congestion. 15 mL 11 03/03/20 25 026 Active cetirizine (ZyrTEC) 10 MG tabletIndicatio ns:Nasal congestion TAKE 1 TABLET BY MOUTH EVERY DAY NEEDED FOR ALLERGIES 90 tablet 3 03/03/20 25 Active fluticasone (Flonase) 50 MCG/ACT nasal sprayIndication s:Cough in adult patient Administer 1 spray into each nostril Once per day. Shake gently. Before first use, prime pump. After use, clean tip and replace cap. 16 g 2 10/20/20 24 025 Discontinued cetirizine (ZyrTEC) 10 MG tabletIndicatio ns:Nasal congestion TAKE 1 TABLET BY MOUTH EVERY DAY NEEDED FOR ALLERGIES 90 tablet 3 01/11/20 25 025 Discontinued(R eorder (will not trigger notification to Pharmacy)) Acetaminophen Extra Strength 500 MG tabletIndicatio ns:Pain TAKE 1 TABLET BY MOUTH EVERY 6 TO 8 HOURS NEEDED FOR PAIN OR FOR FEVER 60 tablet 01/18/20 25 025 Discontinued(R eorder (will not trigger notification to Pharmacy)) Active Problems Problem Noted Date Diagnosed Date Congestion of nasal sinus 03/02/2025 Overview (03/02/2025): -uri Nasal congestion 03/02/2025 Overview (03/02/2025): Reports chronic-prolonged nasal congestion, due to allergies versus body habitus versus underlying chronic disease. - prescribed cetirizine (ZyrTEC) 10 MG - prescribed sodium chloride (ocean) 65% nasal spay Assessment & Plan (03/02/2025 11:59 AM EDT): Reports chronic-prolonged nasal congestion, due to allergies versus body habitus versus underlying chronic disease. - prescribed cetirizine (ZyrTEC) 10 MG - prescribed sodium chloride (ocean) 65% nasal spay Atrial tachycardia 03/01/2025 Overview (03/01/2025): -per note from Margaretsonali Holman 02/27/25 EKG last visit showed sinus [...] be increased up to 50 mg daily. Assessment & Plan (03/02/2025 11:54 AM EDT): -per note from Margaret River 02/27/25 EKG last visit showed sinus tachycardia, [...] 04/21/24 with uric acid 7.9 -Seen by cloth sponger Dr. Bernstein 05/11/24 or evaluation of acute gout affecting left foot. -Pt admitted 07/25/24-07/2524 for swelling, pain, and warmth in the right knee. Patient had a low fever (100.3 F) and elevated WBC (48348 cells/uL), CRP, and ESR. Orthopedic surgery consulted [...] reach serum uric acid level <6 mg/dL(2020 [place] [employer] guideline for the management [...] 04/21/24 with uric acid 7.9 -Seen by cloth sponger Dr. Bernstein 05/11/24 or evaluation of acute gout affecting left foot. -Pt admitted 07/25/24-07/2524 for swelling, pain, and warmth in the right knee. Patient had a low fever (100.3 F) and elevated WBC (48943 cells/uL), CRP, and ESR. Orthopedic surgery consulted [...] reach serum uric acid level <6 mg/dL(2020 [place] [employer] guideline for the management [...] reach serum uric acid level <6 mg/dL(2020 [place] [employer] guideline for the management [...] ON 08/24/2024 9:45 AM BY JOLIE PA [facility] (07/25/2024 - 07/27/2024) Patient presented with swelling, pain, and warmth in the right knee. Patient had a low fever (100.3 F) and elevated WBC (34458 cells/uL), CRP, and ESR. Orthopedic surgery consulted [...] by mouth once daily for 5 days. [facility] (08/07/2024) Patient presented for right knee [...] of breath) 06/29/2024 Overview (12/29/2024): -Followed by [facility] Pulmonology with Sury Benitez NP [...] Plan (12/29/2024 11:03 AM EST): -Followed by [facility] Pulmonology with Sury Benitez NP [...] if needed. -pt reports she saw her inventory control coordinator and is continuing management with them. . Assessment & Plan (07/13/2024 2:15 PM EDT): -referred to pulmonology 06/29/24 -Pt reports she has appt to see inventory control coordinator 08/01/24 Assessment & Plan (06/29/2024 4:49 PM EDT): -referred to pulmonology 06/29/24 (HFpEF) heart failure with preserved ejection fr action 06/29/2024 Overview (03/02/2025): -Echocardiogram done 10/18/2021 had shown EF 30-35%, mild LVH. She did not come for cardiology follow-up after that finding. A stress test at that time was incomplete. -Dx with acute congestive heart failure with reduced EF during admission to [facility] 06/22/24. - She was started [...] effusion and indeterminate diastolic function -Seen by [facility] Cardiology 08/01/24 : exercise nuclear [...] with reduced EF during recent admission to [facility] 06/22/24. Pt was volume overloaded [...] with reduced EF during recent admission to [facility] 06/22/24. Pt was volume overloaded [...] failure with reduced EF during admission to [facility] 06/22/24. - She was started [...] effusion and indeterminate diastolic function -Seen by [facility] Cardiology 08/01/24 : exercise nuclear [...] failure with reduced EF during admission to [facility] 06/22/24. - She was started [...] effusion and indeterminate diastolic function -Seen by [facility] Cardiology 08/01/24 : exercise nuclear [...] Complex care coordination 01/11/2024 Overview (01/11/2024): -Has SIZE CHANGER services with [facility] -She is applying [facility] 01/11/2024 -In our C3 complex care management program -referred to CB on 01/04/2024 -Messaged sent to C3 client care manager for assistance in care visits Assessment & Plan (12/29/2024 10:21 AM EST): -Has SIZE CHANGER services with [facility] -She is applying [facility] 01/11/2024 -In our C3 complex care management program -referred to CB on 01/04/2024 -Messaged sent to C3 client care manager for assistance in care visits Assessment & Plan (08/24/2024 9:19 AM EDT): -Has SIZE CHANGER services with [facility] -Leonora is applying [facility] 01/11/2024 -In our complex care management program -referred to CB on 01/04/2024 -Messaged sent to C3 client care manager for assistance in care visits Assessment & Plan (06/29/2024 4:06 PM EDT): -Has SIZE CHANGER services with [facility] -Leonora is applying [facility] 01/11/2024 -In our complex care management program -referred to [facility] on 01/04/2024 -Messaged sent to C3 client care manager for assistance in care visits Assessment & Plan (01/11/2024 9:30 AM EDT): -Has SIZE CHANGER services with [facility] -Leonora is applying [facility] 01/11/2024 -In our complex care management program -referred to [facility] on 01/04/2024 -Messaged sent to C3 client care manager for assistance in care visits Generalized [...] Pain Management team and will reconnect with [facility]. Information given to patient. PLAN: (check all [...] intervention , Patient to reach out to [facility] team as needed, and Patient to [...] agrees with the plan. Anemia 07/29/2023 Overview (03/02/2025): Lab Results Component Value Date FERRITIN 180 11/08/2024 FERRITIN 118 06/16/2024 HGB 11.2 (L) 03/02/2025 HGB 11.4 (L) 12/29/2024 HGB 12.5 07/01/2022 HGB 12.2 01/23/2022 HEMATOCRIT 37.0 07/01/2022 HEMATOCRIT 36.0 01/23/2022 Pt does not want to take iron orally, she wants to go back to hematology for transfusion - Iron infusions ordered by Kaiako Kohanga Reo DR. Grande - She recieved two sessions [...] for transfusion - Iron infusions ordered by Kaiako Kohanga Reo DR. Grande - She recieved two sessions [...] for transfusion - Iron infusions ordered by Kaiako Kohanga Reo DR. Grande - She recieved two sessions [...] for transfusion - Iron infusions ordered by Kaiako Kohanga Reo DR. Grande - She recieved two sessions [...] co-pay for psychological clearance. Hypomagnesemia 07/22/2023 Overview (03/02/2025): Received magnesium IV in ER -Dose increased to TID Magnesium Date Value Ref Range Status 02/07/2025 1.7 1.6 - 2.6 mg/dL Final Saw CDTM [...] 400 MG tablet 11/09/24 -ordered repeat labs 12/29/24, normal Assessment & Plan (12/29/2024 11:10 AM EST): [...] lynnelulu back by: Janett Ortega Person calling: [employer] Date:06/16/24 Time: 1218 Saw CDTM on 08/16/24 [...] pedro back by: Janett Ortega Person calling: [employer] Date:06/16/24 Time: 1218 Assessment & Plan (07/29/2023 [...] on scene within 10 minutes, transfer completed [facility] called with expect Chronic GERD 05/26/2023 [...] left. Scheduled nerve blocks. Fibromyalgia 11/16/2022 Overview (03/02/2025): Pt has chronic pain syndrome. Multiple work [...] depression and or anxiety and stress management. -referred to chronic pain group 03/02/25, recommended acupuncture clinic. Assessment & Plan (03/02/2025 11:41 AM EDT): Pt has chronic pain syndrome. Multiple work [...] depression and or anxiety and stress management. -referred to chronic pain group 03/02/25, recommended acupuncture clinic. Assessment & Plan (10/22/2023 9:50 AM EST): [...] had ultrasound sound for abdominal pain at [facility] revealing diffusely echogenic parenchyma with focal [...] had ultrasound sound for abdominal pain at [facility] revealing diffusely echogenic parenchyma with focal [...] had ultrasound sound for abdominal pain at [facility] revealing diffusely echogenic parenchyma with focal [...] had ultrasound sound for abdominal pain at [facility] revealing diffusely echogenic parenchyma with focal [...] had ultrasound sound for abdominal pain at [facility] revealing diffusely echogenic parenchyma with focal [...] had ultrasound sound for abdominal pain at [facility]. Ultrasound showed diffusely echogenic parenchyma with focal sparing around the gallbladder. No suspicious lesions. Impression showed liver likely representing hepatic steatosis and non- obstructing right kidney stone. Benign essential hypertension 12/13/2021 Overview (11/09/2024): -Blood pressure is at goal -Continue lifestyle modifications -Continue current medications - Prescribed spironolactone (Aldactone) 25 MG tablet 11/09/24 Assessment & Plan (03/02/2025 11:54 AM EDT): -Blood pressure is at goal [...] sxs, will send to ED to [facility], EMS is called and she left accompanied [...] been referred [facility] Recovery but [...] subsequently declined -Admitted for alcohol detox at [facility] 04/09/24 -reports she is currently [...] been referred to [facility] for Support and Recovery but [...] subsequently declined -Admitted for alcohol detox at [facility] 04/09/24 -reports she is currently [...] been referred to [facility] for Support and Recovery but [...] subsequently declined -Admitted for alcohol detox at [facility] 04/09/24 -reports she is currently [...] phenobarb improved her symptoms, patient declined wildlife removal specialist help to place her in rehab, [...] phenobarb improved her symptoms, patient declined wildlife removal specialist help to place her in rehab, [...] History of right breast cancer 12/12/2021 Overview (03/02/2025): 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 -S/p RIGHT [facility] started Oct, completed [...] scheduled. BI-RADS BI-RADS 4 - Suspicious finding -has appt for mammogram and biopsy scheduled. Assessment & Plan (03/02/2025 11:48 AM EDT): 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 -S/p RIGHT maste[facility] with sentinel node [facility] started Oct, completed [...] -She reestablished with oncology 08/30/2024, note from 3/17/25 reviewed -Has appt for mammogram in December [...] scheduled. BI-RADS BI-RADS 4 - Suspicious finding -has appt for mammogram and biopsy scheduled. Assessment & Plan (12/29/2024 10:20 AM EST): 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 -S/p RIGHT mastectomy with sentinel node [facility]an [facility] started Oct, completed [...] type, invasive tumor 2.2 cm ER positive, SD positive, HER-2/RON negative, two sentinel nodes negative. -S/p RIGHT mastectomy with sentinel node bx by Dr. [facility] -Adriamycin/Cytoxan based chemotherapy started Oct, [...] type, invasive tumor 2.2 cm ER positive, SD positive, HER-2/RON negative, two sentinel nodes negative. -S/p RIGHT mastectomy with sentinel node bx by Dr. [facility] -Adriamycin/Cytoxan based chemotherapy started Oct, [...] type, invasive tumor 2.2 cm ER positive, SD positive, HER-2/RON negative, two sentinel nodes negative. -S/p RIGHT mastectomy with sentinel node [facility]Cytoxan [facility] started Oct, completed [...] type, invasive tumor 2.2 cm ER positive, SD positive, HER-2/RON negative, two sentinel nodes negative. -S/p RIGHT mastectomy with sentinel node [facility]an [facility] started Oct, completed [...] type, invasive tumor 2.2 cm ER positive, SD positive, HER-2/RON negative, two sentinel nodes negative. -S/p RIGHT mastectomy with sentinel node b[facility]Cytoxan [facility] started Oct, completed [...] type, invasive tumor 2.2 cm ER positive, SD positive, HER-2/RON negative, two sentinel nodes negative. -S/p RIGHT mastectomy with sentinel node [facility]Cytoxan [facility] started Oct, completed [...] type, invasive tumor 2.2 cm ER positive, SD positive, HER-2/RON negative, two sentinel nodes negative. -S/p RIGHT mastectomy with sentinel node bx by Dr. [facility] -Adriamycin/Cytoxan based chemotherapy started Oct, [...] type, invasive tumor 2.2 cm ER positive, SD positive, HER-2/RON negative, two sentinel nodes negative. -S/p RIGHT mastectomy with sentinel node b[facility]/Cytoxan based chemotherapy started Oct, completed [...] Overview (06/28/2024): Lab Results Component Value Date [id number] 58.3 06/16/2024 [id number] 106.4 01/04/2024 [id number] 76.8 09/22/2023 Assessment & Plan (06/29/2024 3:39 PM EDT): Lab Results Component Value Date [id number] 58.3 06/16/2024 [id number] 106.4 01/04/2024 [id number] 76.8 09/22/2023 Assessment & Plan (12/14/2023 12:09 PM EST): Lab Results Component Value Date [id number] 76.8 09/22/2023 -Labs ordered for further evaluation: Vitmain D, 25-hydroxy, Total, Immunoassay. 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 Per Dr. Krish Loomis's note from [facility], pt was due for repeat colposcopy in [...] CIN2-3. Per Dr. Krish Loomis's note from [facility], pt was due for [...] CIN2-3. Per Dr. Krish Loomis's note from [facility], pt was due for [...] CIN2-3. Per Dr. Krish Loomis's note from [facility], pt was due for [...] up with [facility] Patient Self Plan Patient to utilize skills provided in intervention , Patient to reach out to [facility] team as needed, Patient to reach out to [facility] as needed, and will contact [facility] Intake number to connect with ferry terminal supervisor OP services, and psychiatrist. Rule Out Diagnoses: [...] as pharmacomtherapy, [facility] smoking cessation group, and [facility] smoking [facility] Discussed USPSTF recommends [...] as pharmacomtherapy, [facility] smoking cessation group, and [facility] smoking cessation clinic Discussed USPSTF recommends [...] as pharmacomtherapy, [facility] smoking cessation group, and [facility] smoking cessation clinic Discussed USPSTF recommends [...] as pharmacomtherapy, [facility] smoking cessation group, and [facility] smoking cessation clinic Discussed USPSTF recommends [...] as pharmacomtherapy, [facility] smoking cessation group, and [facility] smoking cessation clinic Discussed USPSTF recommends [...] flare 05/11/2024 12/29/2024 Overview (07/13/2024): Seen by cloth sponger Dr. Bernstein 05/11/24 or evaluation of acute [...] Plan (07/13/2024 2:21 PM EDT): Seen by cloth sponger Dr. Bernstein 05/11/24 or evaluation of acute [...] EDT): Patient requesting a Physical for her SIZE CHANGER hours to be re-instated. On exam today, her vitals are stable and her exam seems unchanged from previous one. Work up in progress for her c/o bilateral foot pain Hospital discharge follow-up 06/18/2023 07/20/2023 Assessment & Plan (07/14/2023 10:23 AM EDT): Patient here for a HDF. She was admitted to [facility] from 06/05[facility] . She presented with concerns [...] Hyperaldosteronism 11/16/2022 3 Overview (11/16/2022): Seen by [facility] 04/03/2022. Initially seen 12/2021 for hyperaldosteronism. Labs [facility] 10/2021 aldosterone 8, plasma renin 0.11, aldosterone/renin 72.7. She was likely on spironolactone and lisinopril at time of labs. Advise no spironolactone for 6 weeks and recheck renin aldosterone levels with renal panel and magnesium in casting wheel operator helper. Assessment & Plan (11/16/2022 10:55 AM EST): Seen by [facility] 04/03/2022. Initially seen 12/2021 for hyperaldosteronism. Labs [facility] 10/2021 aldosterone 8, plasma renin 0.11, aldosterone/renin 72.7. She was likely on spironolactone and lisinopril at time of labs. Advise no spironolactone for 6 weeks and recheck renin aldosterone levels with renal panel and magnesium in casting wheel operator helper. Anxiety 04/19/2014 01/28/2024 Encounters Date Type Department Care Team Description 03/02/2025 11:15 AM EDT Office Visit [address] [address] Shereen Latham MD Fibromyalgia (Primary Dx); Nasal congestion; History of right breast cancer; Atrial tachycardia ([facility]/HCC); Benign essential hypertension 03/02/[address] [address] Shereen Latham MD Lab Orders 03/02/2025 Travel 03/01/2025 Orders Only [address] [address] Shereen Latham MD Iron deficiency anemia, unspecified iron deficiency anemia type (Primary Dx); Alcohol use disorder, moderate, dependence (CMS/HCC) 03/01/2025 Orders Only [address] [address] Shereen Latham MD Atrial tachycardia ([facility]/HCC) (Primary Dx) 02/24/[address] [address] Shereen Latham MD Lab Orders 02/23/[address] [address] Shereen Latham MD chartprep 02/15/2025 Refill [facility] [address] [place], [place] [id number] Shereen Latham MD Pain 02/13/[address] [address] Shereen Latham MD Nurse Triage 02/09/2025 Orders Only [facility] External Provider, [facility] Heart failure with preserved ejection fraction, unspecified HF chronicity (CMS/HCC) (Primary Dx) 01/27/2025 Orders Only [facility] [place] [address] Shereen Latham MD History of right breast cancer (Primary Dx) 01/27/2025 Orders Only [facility] [place] [address] Shereen Latham MD Hypomagnesemia (Primary Dx) 01/24/2025 1:00 PM EDT Clinical Support [facility] [address] [facility] [place] [address] History of chronic CHF (Primary Dx) 01/24/2025 Telephone [facility] [place] [address] Shereen Latham MD Medication Question 01/24/2025 Travel 01/19/2025 Orders Only [facility] [address] Stacey Khan MD Women's annual routine gynecological examination (Primary Dx) 01/19/2025 Orders Only [facility] [address] Stacey Khan MD Breast pain, left (Primary Dx); History of right breast cancer 01/17/2025 3:00 PM EDT Nutrition [facility] [address] History of chronic CHF 01/17/2025 Refill [facility] [address] [facility], [place] [id number] Shereen Latham MD Pain 01/17/2025 Travel 01/17/2025 Refill [facility] [address] [place] [address] Mayda Rush MD Pain 01/16/2025 Telephone [facility] [address] [place] [address] Shereen Latham MD Appointment Request 01/13/2025 Population Health Risk Score [facility] (C[facility]) Department [address] [place] [phone] Provider, Population Health Generic 01/12/2025 Refill [facility] [address] [place] [address] Shereen Latham MD Benign essential hypertension 01/09/[address] [address] Shereen Latham MD Gastroesophageal reflux disease, unspecified whether esophagitis present; Vitamin D deficiency; Nasal congestion 01/03/[address] [address] Shereen Latham MD Referral 12/29/2024 10:30 AM EST Office Visit [address] [address] Shereen Latham MD History of right breast [...] coordination; Tubular adenoma of colon 12/29/[address] [address] Shereen Latham MD Results 12/29/2024 Orders Only [address] [address] Shereen Latham MD Gout, unspecified cause, unspecified chronicity, unspecified site 12/29/2024 Orders Only GENERIC EXTERNAL DATA DEPARTMENT Provider, Generic External Data 12/29/2024 Travel 12/22/[address] [address] Shereen Latham MD Durable Medical Equipment; chartprep 12/22/[address] [phone] Shereen Latham MD Nurse Triage 12/21/2024 3:30 PM EST Telemedicine [facility] [address] [place] [address] Nupur Bullock, CharleneD Preventative health care (Primary Dx) 12/21/2024 Travel 12/21/2024 Refill [facility] [address] [place] [address] Shereen Latham MD Pain 12/20/2024 Orders Only [facility] External Provider, [facility] 12/14/2024 Travel 12/12/2024 Patient Outreach [facility] [address] [place] [address] Shereen Latham MD Transition Of Care (Tcm) 12/10/2024 Orders Only GENERIC EXTERNAL DATA DEPARTMENT Provider, Generic External Data 12/09/2024 Telephone [facility] [address] [place] [address] Shereen Latham MD Nurse Triage from Last [...] Sign Reading Time Taken Comments Blood Pressure 119/86 03/02/2025 11:24 AM EDT Pulse 120 03/02/2025 11:24 AM EDT Temperature 36.2 ??C (97.1 ??F) 03/02/2025 11:24 AM E DT Respiratory Rate 20 03/02/2025 11:24 AM EDT Oxygen Saturation 99% 03/02/2025 11:24 AM EDT Inhaled Oxygen Concentration - - Weight 91.3 kg (201 lb 3.2 oz) 03/02/2025 11:24 AM EDT Height 170.2 cm (5' 7 ) 03/02/2025 11:24 AM EDT Body Mass Index 31.51 03/02/2025 11:24 AM EDT Plan of Treatment Upcoming Encounters Date Type Department Care Team (Late st Contact Info) Description 03/29/2025 2:00 PM EDT Office Visit [facility] [address] [place] [address] [address] Gordon [address] [place] [address] 04/25/2025 2:30 PM EDT Medication Management [facility] [address] [place] [address] Nupur Bullock, PharmD [address] [place] [address] 04/26/2025 9:30 AM EDT Office Visit [facility] [address] [place] [address] Shereen Latham MD [address] [place] [address] Health Maintenance Due Date Last Done Comments CT Colonography 1973 FIT 1975 FOBT 1975 Sigmoidoscopy 1975 Dental X-Ray: Full Mouth 07/07/2022 07/06/2019 Zoster Vaccines (1 of 2) 2023 Dental Oral Exam 12/19/2024 06/17/2024, 07/06/2019 Diagnostic Breast Imaging 03/07/2025 02/23/2025, Mammogram 03/25/2025 02/23/2025, 04/2 01/2025, 08/27/2023, Additional history exists Dental Prophylaxis 03/29/2025 09/28/2024, 1 , 07/06/2019 Influenza Vaccine (#1) 2025 09/06/2015 Postp oned [...] (PISQ) 12/29/2025 12/29/2024 SDOH Screening 12/29/2025 12/29/2024 Alcohol/Substance Use Screening 03/02/2026 03/02/2025 Tobacco Screening 03/02/2026 03/02/2025 Colonoscopy 07/11/2026 07/11/2024 Colorectal Cancer Screening 07/11/2026 [...] Date/Time Associated Diagnosis Comments URIC ACID Routine 03/02/2025 9:00 AM EDT Encounter for routine adult medical examination FERRITIN Routine 03/02/2025 9:00 AM EDT Iron deficiency anemia, unspecified iron deficiency anemia type HEPATIC FUNCTION PANEL Routine 03/02/2025 9:00 AM EDT Alcohol use disorder, moderate, dependence (CMS/HCC) MAGNESIUM Routine 03/02/2025 9:00 AM EDT Alcohol use disorder, moderate, dependence (CMS/HCC) VITAMIN B12/FOLATE, SERUM PANEL Routine 03/02/2025 9:00 AM EDT Iron deficiency anemia, unspecified iron deficiency anemia type IRON AND TOTAL IRON BINDING CAPACITY Routine 03/02/2025 9:00 AM EDT Iron deficiency anemia, unspecified iron deficiency anemia type TSH W/REFLEX TO FT4 Routine 03/02/2025 9 :00 AM EDT Iron deficiency anemia, unspecified iron deficiency anemia type CBC WITH AUTO DIFFERENTIAL Routine 03/02/2025 9:00 AM EDT Iron deficiency anemia, unspecified iron deficiency anemia type BI US BREAST LIMITED LEFT Routine 02/23/2025 [...] QL NAAT Routine 12/10/2024 11:48 PM EST PROPHYLAXIS - ADULT Routine 09/28/2024 [...] Recently Relevant to Health Maintenance Results * Vitamin B12 (Cobalamin) and Folate Panel, Serum (03/02/2025 9:00 AM EDT) Vitamin B12 621 200 - 900 pg/mL [facility] Comment:NORMAL 200-900 PG/M L INDETERMINATE 160-199 PG/ML DEFICIENT < 160 PG/ML Folate 17.2 > or = 4.0 ng/mL [facility] Comment:Reference Values:> o r = 4.0 ng/mL< 4.0 ng/mL suggests folate deficiency Methotrexate, aminopterin and folinic acid(leucovorin) are chemotherapeutic agents whose molecularstructures are similar to folate; therefore, the Architectfolate assay cannot be used for patients using these drugs. Blood Venous blood specimen / Unknown 03/02/2025 9:00 AM EDT 03/02/2025 11:23 AM EDT Shereen Latham MD LAB BLOOD ORDERABLES Final Result Performing Organization Address City/[facility]/ZIP Co de Phone Number [facility] [address] [place] [phone] * TSH with Reflex to Free T4 (03/02/2025 9:00 AM EDT) [facility] TSH reflex Free T4 1.34 0.32 - 4.0 uIU/mL [facility] Blood Venous blood specimen / Unknown 03/02/2025 9:00 AM EDT 03/02/2025 11:23 AM EDT Shereen Lathma MD LAB BLOOD ORDERABLES Final Result Performing Organization Address City/[facility] Co de Phone Number [facility] [address] [place] [phone] * (ABNORMAL) CBC auto differential (03/02/2025 9:00 AM EDT) Only the most recent of3 resultswithin the time period is included. [facility] White Blood Count 10.3 4.8 - 10.8 X10*3/uL [facility] Red Blood Count 3.85(L) 4.20 - 5.50 X10*6/uL [facility] Hemoglobin 11.2(L) 12.0 - 16.0 g/dl [facility] Hematocrit 34.4(L) 37.0 - 47.0 % [facility] Mean Corpuscular Volume 89.4 80.0 - 98.0 fL [facility] Mean Corpuscular Hemoglobin 29.1 27.0 - 33.0 pg [facility] Mean Corpuscular HGB Conc 32.6 31.0 - 35.0 g/dl [facility] Red Cell Distribution Width 14.9 11.0 - 16.0 % [facility] Platelet Count 389 160 - 400 X10*3/uL [facility] Mean Platelet Volume 10.9 9.4 - 12.3 fL [facility] Neutrophils Percent Auto 58.9 45 - 73 % [facility] Imm Gran Pct Auto 0.5(H) 0.0 - 0.4 % [facility] Lymphocytes Percent Auto 28.0 20 - 40 % [facility] Monocytes Percent Auto 8.8 2 - 11 % [facility] Eosinophils Percent Auto 2.8 0 - 4 % [facility] Basophils Percent Auto 1.0 0 - 2 % [facility] NRBC Pct Auto 0.0 0.0 - 0.2 /100WBC [facility] Neutrophils Absolute Auto 6.1 2.0 - 8.3 x10*3/uL [facility] Imm Gran Abs Auto 0.05(H) 0.00 - 0.03 X10*3/uL [facility] Lymphocytes Absolute Auto 2.9 1.2 - 4.9 X10*3/uL [facility] Monocytes Absolute Auto 0.9 0.1 - 1.2 X10*3/uL [facility] Eosinophils Absolute Auto 0.3 0.0 - 0.4 X10*3/uL [facility] Basophils Absolute Auto 0.1 0.0 - 0.2 X10*3/uL [facility] NRBC Abs Auto 0.000 0.0 - 0.012 X10*3/uL [facility] Blood Venous blood specimen / Unknown 03/02/2025 9:00 AM EDT 03/02/2025 11:23 AM EDT us Shereen Latham MD LAB BLOOD ORDERABLES Final Result [facility] [address] [place] [phone] * Iron And Total Iron Binding Capacity (03/02/2025 9:00 AM EDT) Iron 43 30 - 160 mcg/dL [facility] Total Iron Binding Capacity 262 228 - 428 mcg/dL [facility] Percent Iron Saturation 16 15 - 50 % [facility] Unsaturated Iron Binding 219 ug/dL [facility] Blood Venous blood specimen / Unknown 03/02/2025 9:00 AM EDT 03/02/2025 11:23 AM EDT Shereen Latham MD LAB BLOOD ORDERABLES Final Result Performing Organization Address City/[facility]/ZIP Co de Phone Number [facility] [address] [place] [phone] * Uric acid (03/02/2025 9:00 AM EDT) Only the most recent of2 resultswithin the time period is included. Uric Acid 5.7 2.4 - 5.7 mg/dL [facility] Blood Venous blood specimen / Unknown 03/02/2025 9:00 AM EDT 03/02/2025 11:23 AM EDT Shereen Latham MD LAB BLOOD ORDERABLES Final Result Performing Organization Address [facility] de Phone Number [facility] [address] [place] [phone] * Magnesium (03/02/2025 9:00 AM EDT) Only the most recent of3 resultswithin the time period is included. Magnesium 1.8 1.6 - 2.6 mg/dL [facility] Blood Venous blood specimen / Unknown 03/02/2025 9:00 AM EDT 03/02/2025 11:23 AM EDT Shereen Latham MD LAB BLOOD ORDERABLES Final Result Performing Organization Address [facility] Co de Phone Number [facility] [address] [place] [phone] * Ferritin (03/02/2025 9:00 AM EDT) Ferritin 144 10 - 250 ng/mL [facility] Blood Venous blood specimen / Unknown 03/02/2025 9:00 AM EDT 03/02/2025 11:23 AM EDT Shereen Latham MD LAB BLOOD ORDERABLES Final Result Performing Organization Address [facility] de Phone Number [facility] [address] [place] [phone] * Hepatic Function Panel (03/02/2025 9:00 AM EDT) Bilirubin, Total 0.2 0.0 - 1.0 mg/dL [facility] Bilirubin, Direct <0.2 0.0 - 0.5 mg/dL [facility] Aspartate Amino Transferase 19 5 - 31 U/L [facility] Alanine Aminotransferase 19 0 - 31 U/L [facility] Total Protein 7.4 6.5 - 8.0 g/dL [facility] Albumin Level 4.2 3.5 - 5.0 g/dL [facility] Alkaline Phosphatase 111 39 - 117 U/L [facility] Blood Venous blood specimen / Unknown 03/02/2025 9:00 AM EDT 03/02/2025 11:23 AM EDT Shereen Latham MD LAB BLOOD ORDERABLES Final Result Performing Organization Address [facility] de Phone Number [facility] [address] [place] [phone] * BI US Breast Limited Left (02/23/2025 12:15 PM EDT) Anatomical Region Laterality Modality Breast Left Ultrasound 02/23/2025 12:1 5 PM EDT Narrative 02/23/2025 1:08 PM EDT ? [facility] ? [address] ?[place] [address] ? Ultrasound Report ? Signed ? Patient: Cast,Azra ?MR#: [id number] ?? 3774 ? : 1975 ?Acct:[id number] ? Age/Sex: 49 / F ?ADM Date: 02/23/25 ? Loc: HO.MAMMO ? Attending Dr: Stacey Khan MD ? Ordering Physician: Stacey Khan MD ?? Date of Service: 02/23/25 ?? Procedure(s): US breast LT limited mamm only ?? Accession Number(s): [id number] ? cc: Shereen Latham MD; Stacey Khan [...] BI-RADS breast ?? composition Category b). ?? [place] marker in the upper outer breast area [...] DD/ 1215 ? TD/TT: 02/23/25 1237 ? Platinum Smith: ? Procedure Note Donalonzoter, Image - 02/23/2025 [place] [facility] [address] [place] [address] Ultrasound Report Signed Patient: Maged Cast#: [id number] : 1975Acct:[id number] Age/Sex: 49 / FADM Date: 02/23/25 Loc: HO.MAMMO Attending Dr: Stacey Khan MD Ordering Physician: Stacey Khan MD Date of Service: 02/23/25 Procedure(s): US breast LT limited mamm only Accession Number(s): [id number] cc: Shereen Latham MD; Stacey Khan MD [...] density (ACR BI-RADS breast composition Category b). [place] marker in the upper outer breast area [...] 02/23/25 1306 DD/ 1215 TD/TT: 02/23/25 1237 Platinum Smith: us Stacey Khan MD IMG US PROCEDURES Final Result * BI Mammogram Diagnostic Tomosynthesis Left (02/23/2025 11:40 AM EDT) Anatomical Region Laterality Modality Breast Left Mammography 02/23/2025 11:4 0 AM EDT Narrative 02/23/2025 1:08 PM EDT ? [facility] ? [address] ?[place] [address] ?[phone] ? Mammography Report ? Signed ? Patient: Segun,Azra ?MR#: [id number] ?? 3774 ? : 1975 ?Acct:[id number] ? Age/Sex: 49 / F ?ADM Date: 04/24/25 ? Loc: HO.MAMMO ? Attending Dr: Stacey Khan MD ? Ordering Physician: Stacey Khan MD ?Results: 4Suspicio ?? us Finding ? Date of Service: 02/23/25 ?Follow Up: Biopsy Recommend ?? ed ? Procedure(s): MM tomosynthesis diagnostic LT ?? Accession Number(s): [id number] ? cc: Shereen Latham MD; Stacey Khan [...] BI-RADS breast ?? composition Category b). ?? [place] marker in the upper outer breast area [...] DD/ 1140 ? TD/TT: 02/23/25 1150 ? Platinum Smith: ? Procedure Note Sumi, Gypsy - 02/23/2025 [place] [facility] [address] [place] [address] Mammography Report Signed Patient: Maged Cast#: [id number] : 1975Acct:[id number] Age/Sex: 49 / FADM Date: 02/23/25 Loc: ALBERTO Attending Dr: Stacey Khan MD Ordering Physician: Stacey Khan MDResults: 4Suspicio us Finding Date of Service: 02/23/25Follow Up: Biopsy Recommend ed Procedure(s): MM tomosynthesis diagnostic LT Accession Number(s): [id number] cc: Shereen Latham MD; Stacey Khan MD [...] density (ACR BI-RADS breast composition Category b). [place] marker in the upper outer breast area [...] 02/23/25 1306 DD/ 1140 TD/TT: 02/23/25 1150 Platinum Smith: us Stacey Khan MD IMG BI PROCEDURES Final Result * Stress test with myocardial perfusion (02/09/2025 9:30 AM EDT) 02/09/2025 9:30 AM EDT Narrative [facility] - 02/24/2025 11:11 AM EDT ? [facility] ?[address] ?[place] [address] ?Nuclear Medicine Report ? Signed ? Patient: Cast,Azra ?MR#: [id number] ?? 3774 ? : 1975 ?Acct:[id number] ? Age/Sex: 49 / F ?ADM Date: 02/09/25 ? Loc: HO.CARD ? Attending Dr: Margaret ALMANZA ? Ordering Physician: Margaret Holman ?? Date of Service: 02/09/25 ?? Procedure(s): NM cardiolite stress test ?? Accession Number(s): [id number] ? cc: Shereen Latham MD; Margaret Holman [...] DD/ 0930 ? TD/TT: 02/22/25 1215 ? Platinum Smith: ? Procedure Note Donalonzoter, Image - 02/24/2025 [place] [address] Nuclear Medicine Report Signed Patient: Maged Cast#: [id number] : 1975Acct:[id number] Age/Sex: 49 / FADM Date: 02/09/25 Loc: CATAL[place] Attending Dr: Margaret ALMANZA Ordering Physician: Margaret Holman Date of Service: 02/09/25 Procedure(s): NM cardiolite stress test Accession Number(s): [id number] cc: Shereen Latham MD; Margaret Holman EXERCISE [...] 02/24/25 1108 DD/ 0930 TD/TT: 02/22/25 1215 Platinum Smith: [facility] External Provider CV STRE SS PROCEDURES Edited Result - Final Performing Organization Address City/State/[facility] Co de Phone Number [facility] [address] [place] [phone] * D Dimer High Sensitivity (01/19/2025 4:33 PM EDT) D Dimer High Sensitivity <150 NG/ML [facility] Comment:D-DIMER HS REFERENCE RANGENote: Our [...] ORDERAB LES Final Result Performing Organization Address City/State/[facility] Co de Phone Number [facility] [address] [place] [phone] * High Sensitivity Troponin I (01/19/2025 4:33 PM EDT) Only the most recent of2 resultswithin the time period is included. [facility] TROPONIN I HIGH SENSITIVITY 7.8 <3.5 - 17.0 ng/L [facility] Comment:The Henriquez high sens itivity Troponin-I results should beused in conjunction with other diagnostic information suchas ECG, clinical observations and information, and patientsymptoms to aid in the diagnosis of NE. 01/19/2025 4:33 PM EDT 01/19/2025 4:34 PM EDT Generic External Data Provider LAB BLOOD ORDERAB LES Final Result Performing Organization Address [facility] Co or Phone Number [facility] [address] [place] [phone] * B Type Natriuretic Peptide (BNP) (01/19/2025 4:33 PM EDT) Only the most recent of2 resultswithin the time period is included. [facility] B Type Natriuretic Peptide 22 <100 pg/mL [facility] 01/19/2025 4:33 PM EDT 01/19/2025 4:34 PM EDT us Generic External Data Provider LAB BLOOD ORDERAB LES Final Result Performing Organization Address [facility] Co or Phone Number [facility] [address] [place] [phone] * (ABNORMAL) Lipid Panel, Standard (12/29/2024 10:53 AM EST) [facility] Triglycerides 192(H) <150 mg/dL [facility] Comment:Desirable Triglyceri de: less than 150 mg/dLBorderline High Triglyceride 150-199 mg/dLHigh Triglyceride: 200-499 mg/dLVery High Triglyceride: greater than or equal to 5OO mg/dL Cholesterol 197 <200 mg/dL [facility] Comment:Desirable Cholestero l: less than 200 mg/dLBorderline High Cholesterol: 200-239 mg/dLHigh Cholesterol: greater than 239 mg/dL LDL Cholesterol Calculated 111(H) <100 mg/dL [facility] Comment:Desirable LDL: less than 100 mg/dLNear Optimal/Above Optimal LDL: 110- 129 mg/dLBorderline High LDL: 130-159 mg/dLHigh LDL: 160-189 mg/dLVery High LDL: greater than or equal to 190 mg/dL HDL Cholesterol 48 >40 mg/dL [facility] Comment:Desirable HDL: great er than 40 mg/dL Note: This HDL assay may give artificially low results in patients with liver disease. Blood Venous blood specimen / Unknown 12/29/2024 10:53 AM EST 12/29/2024 1:06 PM EST us Shereen Latham MD LAB BLOOD ORDERABLES Final Result [facility] [address] [place] [phone] * (ABNORMAL) Basic Metabolic Panel (12/29/2024 10:53 AM EST) Sodium 139 135 - 145 mmol/L [facility] Potassium 4.1 3.3 - 5.1 mmol/L [facility] Chloride 105 96 - 108 mmol/L [facility] Carbon Dioxide 23 22 - 29 mmol/L [facility] Anion Gap 15 12 - 20 [facility] Urea Nitrogen (BUN) 32(H) 9 - 16 mg/dL [facility] Creatinine, Serum 0.91 0.5 - 1.4 mg/dL [facility] Estimated Glomerular Filt Rate >60 [facility] Comment:Chronic Kidney Disea se: Estimated GFR < 60 mL/min/[id number] Kidney Disease: Estimated GFR < 15 mL/min/1.73m2 Glucose 161(H) 60 - 115 mg/dL [facility] Calcium 9.3 8.4 - 10.2 mg/dL [facility] Blood Venous blood specimen / Unknown 12/29/2024 10:53 AM EST 12/29/2024 1:06 PM EST us Shereen Latham MD LAB BLOOD ORDERABLES Final Result [facility] [address] [place] [phone] * XR Knee 1-2 Views Right (12/20/2024 7:45 AM EST) Anatomical Region Laterality Modality Lower Extremities, Knee Right Radiogra phic Imaging 12/20/2024 7:45 AM EST Narrative 12/20/2024 8:20 AM EST ? [facility] ?[address] ?[place] [address] ?XRay Report ? Signed ? Patient: Azra Cast ?MR#: [id number] ?? 3774 ? : 1975 ?Acct:[id number] ? Age/Sex: 49 / F ?ADM Date: 12/20/24 ? Loc: HO.ED ? Attending Dr: ? Ordering Physician: Boby Dykes MD ?? Date of Service: 12/20/24 ?? Procedure(s): XR knee RT 2V ?? Accession Number(s): [id number] ? cc: Shereen Latham MD; Boby Dykes [...] DD/ 0745 ? TD/TT: 12/20/24 0751 ? Platinum Smith: ? Procedure Note Donalonzoter, Image - 12/20/[address] [address] XRay Report Signed Patient: Maged Cast#: [id number] : 1975Acct:[id number] Age/Sex: 49 / FADM Date: 12/20/24 Loc: HO.ED Attending Dr: Ordering Physician: Boby Dykes MD Date of Service: 12/20/24 Procedure(s): XR knee RT 2V Accession Number(s): [id number] cc: Sehreen Latham MD; Boby Dykes MD EXAMINATION: XR [...] Galicia MD in OV> 12/20/24 0817 DD/ TD/TT: 12/20/24 0751 Platinum Smith: us [facility] External Provider IMG XR PROCEDURES Edited Result - Final * XR Chest 1 View (12/11/2024 12:34 AM EST) Anatomical Region Laterality Modality Chest Radiographic Celina ging 12/11/2024 12:3 4 AM EST Narrative 12/11/2024 12:37 AM EST ? [facility] ?[address] ?[place] [address] ?XRay Report ? Signed ? Patient: Azra Cast ?MR#: [id number] ?? 3774 ? : 1975 ?Acct:[id number] ? Age/Sex: 49 / F ?ADM Date: 12/10/24 ? Loc: HO.ED ? Attending Dr: ? Ordering Physician: Sury Bustamante MD ?? Date of Service: 12/10/24 ?? Procedure(s): XR chest 1V ?? Accession Number(s): [id number] ? cc: Shereen Latham MD; Sury Bustamante MD ? CLINICAL HISTORY: chest pain cough ? 1 view chest x-ray ? Comparison: CR/SD - XR CHEST 2V - 10/31/24 17:50 [...] ?12/11/246 ? DD/ ? TD/TT: 12/11/2433 ? Platinum Smith: ? Procedure Note Gypsy Jonas - 12/11/[address] [address] XRay Report Signed Patient: Maged Cast#: [id number] : 1975Acct:[id number] Age/Sex: 49 / FADM Date: 12/10/24 Loc: HO.ED Attending Dr: Ordering Physician: Sury Bustamante MD Date of Service: 12/10/24 Procedure(s): XR chest 1V Accession Number(s): [id number] cc: Shereen Latham MD; Sury Bustamante MD CLINICAL HISTORY: chest pain cough 1 view chest x-ray Comparison: CR/SD - XR CHEST 2V - 10/31/24 17:50 EST Findings: No consolidation or effusion. Heart size is normal. No acute fracture. Right breast implant. IMPRESSION: 1. No acute cardiopulmonary findings. This document has been electronically signed by: Ashley Vazquez MD on 12/11/2024 00:34:57 Dictated By: Ashley Vazquez MD Signed By: <Electronically signed by Ashley Vazquez MD in OV> 12/11/2435 DD/ TD/TT: 12/11/2433 Platinum Smith: [facility] External Provider IMG XR PROCEDURES Final Result * SARS-CoV-2 RNA, Influenza A/B, and RSV RNA, Ql NAAT (12/10/2024 11:48 PM EST) Influenza A PCR NEGATIVE Negative [facility] Influenza B PCR NEGATIVE Negative [facility] Resp Syncy Virus RNA Qual PCR NEGATIVE Negative [facility] SARS COV2 PCR NEGATIVE Negative [facility] Comment:All test results mus t be [...] use by authorized laboratories.Testing performed on the [employer] GeneXpert utilizingreal-time RT-PCR.All SARS CoV2 and positive influenza A/B results arereported to [facility]. 12/10/2024 11:4 8 PM EST 12/10/2024 11:53 PM EST us Generic External Data Provider LAB MICROBIOLOGY - GENERAL ORDERABLES Final Result [facility] [address] [place] [phone] * (ABNORMAL) Comprehensive Metabolic Panel (12/10/2024 11:48 PM EST) Sodium 143 135 - 145 mmol/L [facility] Potassium 3.7 3.3 - 5.1 mmol/L [facility] Chloride 108 96 - 108 mmol/L [facility] Carbon Dioxide 23 22 - 29 mmol/L [facility] Anion Gap 16 12 - 20 [facility] Urea Nitrogen (BUN) 24(H) 9 - 16 mg/dL [facility] Creatinine, Serum 1.11 0.5 - 1.4 mg/dL [facility] Creatinine Clr Calc Pharmacy 69.3 [facility] Comment:Provided height and weight: 170.18 cm,90.7 kg.eGFR (calculated from the MDRD study equation) and eCrCl(calculated from the Cockcroft-Gault equation) are based ondifferent parameters and may not yield comparable results.If eCrCl result is absurd, please check patient'sheight/weight. Estimated Glomerular Filt Rate 52 [facility] Comment:Chronic Kidney Disea se: Estimated GFR < 60 mL/min/1.04z6Vpbnsg Kidney Disease: Estimated GFR < 15 mL/min/1.73m2 Glucose 150(H) 60 - 115 mg/dL [facility] Calcium 9.3 8.4 - 10.2 mg/dL [facility] Bilirubin, Total 0.2 0.0 - 1.0 mg/dL [facility] Aspartate Amino Transferase 19 5 - 31 U/L [facility] Alanine Aminotransferase 14 0 - 31 U/L [facility] Total Protein 7.6 6.5 - 8.0 g/dL [facility] Albumin Level 4.0 3.5 - 5.0 g/dL [facility] Alkaline Phosphatase 87 39 - 117 U/L [facility] 12/10/2024 11:4 8 PM EST 12/10/2024 11:53 PM EST us Generic External Data Provider LAB BLOOD ORDERAB LES Final Result Performing Organization Address [facility] Co de Phone Number [facility] [address] [place] [phone] * (ABNORMAL) Hm Colonoscopy (07/11/2024) Colonoscopy Abnormal( A) Normal Comment:Herberth Stokes MD ?tubular adenoma x 3 Herberth Stokes MD HEALTH MAINTENANCE Final Result * Hepatitis Panel, General (06/16/2024 8:22 AM EDT) Pathologist [facility] Hepatitis A IgM Nonreactive Nonreactive [facility] Comment:IgM antibodies to VIRAMONTES V not detected; does not exclude earlyacute or recovered HAV infection. ~Hepatitis B Surface Antibody REACTIVE Nonreactive [facility] Comment:REACTIVE: > 11.99 mI U/mL Hepatitis B Core Antibody Nonreactive Nonreactive [facility] Hepatitis C Antibody Nonreactive Nonreactive [facility] Comment:Antibodies to HCV no t detected; does not exclude early acuteHCV infection. Hepatitis B Surface Ag Negative Negative [facility] Blood Venous blood specimen / Unknown 06/16/2024 8:22 AM EDT 06/16/2024 11:18 AM EDT us Shereen Latham MD LAB BLOOD ORDERABLES Final Result Performing Organization Address [facility]/ZIP Co de Phone Number [facility] [address] [place] [address] [phone] * HIV-1/2 Antigen and Antibodies, Fourth Generation, with Reflexes (02/24/2024 8:47 AM EDT) HIV AB/AG Nonreactive Nonreactive [facility] Comment:HIV-1 p24 Ag and/or HIV-1/HIV-2 Ab not detected.A test result that is nonreactive does not exclude thepossibility of exposure to or infection with HIV-1 and/orHIV-2. Nonreactive results in this assay for individualswith prior exposure to HIV-1 and/or HIV-2 may be due toantigen and antibody levels that are below the limit ofdetection of this assay.The ViaView HIV Ag/Ab Combo assay result andsupplemental assay results should be interpreted inconjunction with the patient's clinical presentation,history and other laboratory results. If the results areinconsistent with clinical evidence, additional testing issuggested to confirm the result. Blood Venous blood specimen / Unknown 02/24/2024 8:47 AM EDT 02/24/2024 11:22 AM EDT [facility] LAB BLOOD ORDERABLES Final Resul t [facility] [address] [place] [phone] * (ABNORMAL) Cologuard?? colon cancer screening (08/27/2023 11:24 AM EDT) Cologuard Result Positive( A) Negative 09/05/2023 10:16 PM EDT [employer] (CLIA #:[id number]) Comment: POSITIVE TEST RESULT. A positive Cologuard [...] (Felix Mccoy al, N Engl J Med 2014;370(14):6945-5164.) Cologuard may produce a false negative or false positive result (no colorectal cancer or precancerous polyp present at colonoscopy follow up). A negative Cologuard test result does not guarantee the absence of CRC or advanced adenoma (pre-cancer). The current Cologuard screening interval is every 3 years. ([place] Cancer Society and U.S. Multi-Society Task Force). Cologuard performance data in a 10,000 patient pivotal study using colonoscopy as the reference method can be accessed at the following location: www.[employer]/results. Additional description of the Cologuard test process, warnings and precautions can be found at www.Vinylm[employer]rd.com. Stool specimen (specimen) 08/27/2023 11:24 AM EDT 08/29/2023 6:48 AM EDT Shereen Latham MD LAB MOLECULAR DIAGNOSTICS ORDERABLES Final Result [employer] (CLIA #:[id number]) [address] [address], * HPV mRNA E6/E7 (08/12/2018 10:57 AM EDT) HPV mRNA E6/E7 Not Detected NOT DETECTED [facility] Comment: This test was performed using the APTIMA(R) HPV Assay ([employer] This assay detects E6/E7 viral messenger RNA (mRNA) from 14 high-risk HPV types (16,18,31,33,35,39,45,51, 52,56,58,59,66,68). For additional information please refer to: http://education.[employer].OrCam Technologies/faq/HUZ079r6 (This link is being provided for informational/ educational purposes only.) The analytical performance characteristics of this assay have been determined by [place], [place]. The modifications have not been cleared or approved by the FDA. This assay has been validated pursuant to the CLIA regulations and is used for clinical purposes. Test Performed by [employer] [place], [employer] [facility], [address] [place] [address] Dwaine Morelos M.D., Ph.D., Director of Laboratories , [place] [id number] Please note: ??Effective 07/14/2016, HPV testing will be performed using [employer]'s APTIMA test which targets mRNA. Detecting mRNA instead of DNA, as in older methods, offers significant improvements in specificity. 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 Advance Directives and Living Will 07/05/2024 11:59 AM Health Care Proxy Care Teams Telecommunications Sales Representative Relationship Specialty Start Date End Date [place], [place] Shereen [address] [place] [address] PCP - General Family Medicine 11/02/18 Nupur Bullock, CharleneD [address] [place] [address] Pharmacist Internal Medicine 08/09/24 Sury Benitez [address] [place] [address] [address] [place] [address] Pulmonary Disease 09/27/24 Nirali Madrid OD [address] [place] [address] Optometry 10/27/24 Li Grande MD [address] [place] [address] Hematology and Oncology 10/27/24 Anselmo Gates MD 10 [facility] [address] [place] [address] Orthopaedic Surgery 10/27/[address] [facility] 3rd [place] [address] Cardiology 10/27/24 Herberth Stokes MD [address] [facility] 3rd [place] [address] Gastroenterology 10/27/24 Hilton Palacios MD [address] [place] [address], [address] [place] [address] Neurology 02/06/25 Pily Delaney Fur GlazerFish Filleter 07/22/24 Elie Sonali [facility] 12/29/24
--- OUTSIDE RECORDS SUMMARY | 2025-03-07 12:51 | XMS_ITS | Encounter Summary ---
Author Organization [employer] Address 75 [facility] 7 [place] [address] Care Team Providers Care Bridge Contractor Name Role Phone Shereen Latham MD Primary Care Provider [phone] Nupur Bullock PharmD Unavailable Sury Benitez Unavailable [phone] Nirali Madrid OD Unavailable Li Grande MD Unavailable [phone] Anselmo Gates MD Unavailable Margaret Holman Unavailable Herberth Stokes MD Unavailable [phone] Hilton Palacios MD Unavailable Reason for Visit * Reason Onset Date Comments Medication Question 07/05/2024 Encounter Details Date Type Department Care Team (Late st Contact Info) Description 07/05/2024 Telephone [facility] [address] [place], [place] [phone] Shereen Latham MD [address] [place], [place] [phone] Medication Question Social History Tobacco Use Types [...] is no medication interaction. Contact pt at [phone] documented in this encounter Plan of Treatment Upcoming Encounters Date Type Department Care Team (Late st Contact Info) Description 03/29/2025 2:00 PM EDT Office Visit [facility] ADULT DENTAL [address] [place] [address] Jenny Gordon [address] [place] [address] 04/25/2025 2:30 PM EDT Medication Management [facility] [address] [place] [address] Nupur Bullock, PharmD 230 [place] [address] 04/26/2025 9:30 AM EDT Office Visit [facility] [address] [place] [address] Shereen Latham MD 230 [place] [address] documented as of this encounter Visit Diagnoses Diagnosis Pain Generalized pain documented in this encounter Additional Health Concerns Assessment Noted Time PHQ-9 Depression Total Score: 13 024 4:53 PM EDT documented as of this encounter Care Teams Bridge Contractor Relationship Specialty Start Date End Date Shereen Latham MD [address] [place] [address] PCP - General Family Medicine 11/02/18 Nupur Bullock, CharleneD 230 [place] [address] Pharmacist Internal Medicine 08/09/24 Sury Benitez 10 [facility] [address] [place] [address] Pulmonary Disease 09/27/24 Nirali Madrid, SUSAN [address] [place] [address] Optometry 10/27/24 Li Grande MD [address] [place] [address] Hematology and Oncology 10/27/24 Anselmo Gates MD 10 [facility] [address] [place] [address] Orthopaedic Surgery 10/27/24 Margaret Holman 11 [facility] 3rd [place] [address] Cardiology 10/27/24 Herberth Stokes MD 11 [facility] [address]rd [place] [address] Gastroenterology 10/27/24 Hilton Palacios MD 15 [facility], [address] [place] [address] Neurology 02/06/25 Pily Delaney Mat PuncherTest Automation Architect 07/22/24 Elie iVcky [facility] 12/29/24 documented as of this encounter
--- OUTSIDE RECORDS SUMMARY | 2025-03-07 12:51 | XMS_ITS | Encounter Summary ---
Author Organization [employer] Address [address] [place] [address] 7 [place] [address] Care Team Providers Care Carbon Plant Grinder Name Role Phone Shereen Latham MD Primary Care Provider [phone] Nupur Bullock PharmD Unavailable Sury Benitez Unavailable [phone] Nirali Madrid OD Unavailable Li Grande MD Unavailable [phone] Anselmo Gates MD Unavailable Margaret Holman Unavailable Herberth Stokes MD Unavailable [phone] Hilton Palacios MD Unavailable Encounter Details Date Type Department Care Team (Late st Contact Info) Description 07/27/2023 Orders Only [facility] [address] [place], [place] [phone] Shereen Latham MD 230 [place], [place] [phone] Hypomagnesemia Social History Tobacco Use Types Packs/Day [...] Description 03/29/2025 2:00 PM EDT Office Visit [facility] ADULT DENTAL [address] [place] [address] Heidi, Jenny [address] [place] [address] 04/25/2025 2:30 PM EDT Medication Management [facility]INE [address] [place] [address] Nupur Bullock PharmD [address] [place] [address] 04/26/2025 9:30 AM EDT Office Visit [address] [address] Shereen Latham MD [address] [place] [address] documented as of this encounter Visit Diagnoses Diagnosis Hypomagnesemia Disorders of magnesium metabolism documented in this encounter Additional Health Concerns Assessment Noted Time PHQ-9 Depression Total Score: 10 023 10:27 AM EDT documented as of this encounter Care Teams Carbon Plant Grinder Relationship Specialty Start Date End Date Shereen Latham MD [address] [place] [address] PCP - General Family Medicine 11/02/18 Nupur Bullock, PharmD [address] [place] [address] Pharmacist Internal Medicine 08/09/24 Sury Benitez [address] [place] [address] Dr Milan [address] [place] [address] Pulmonary Disease 11/26/24 Nirali Madrid OD 267 [place] [address] Optometry 10/27/24 Li Grande MD 575 [place] [address] Hematology and Oncology 10/27/24 Anselmo Gates MD [address] [place] [address] Orthopaedic Surgery 10/27/24 Margaret Holman [address] 3rd [place] [address] Cardiology 10/27/24 Herberth Stokes MD [address] [place] [address] Gastroenterology 10/27/24 Hilton Palacios MD 15 [facility], [address] [place] [address] Neurology 02/06/25 Pily Delaney Inward Toll OperatorPyrometer Mechanic 07/22/24 Elie BRASHER [facility] 12/29/24 documented as of this encounter
--- OUTSIDE RECORDS SUMMARY | 2025-03-07 12:51 | XMS_ITS | Encounter Summary ---
Author Organization [employer] Address 75 [facility] 7 [place] [address] Care Team Providers Care Automobile Salesman Name Role Phone Shereen Latham MD Primary Care Provider [phone] Nupur Bullock PharmD Unavailable Sury Benitez Unavailable [phone] Nirali Madrid OD Unavailable Li Grande MD Unavailable [phone] Anselmo Gates MD Unavailable Margaret Holman Unavailable Herberth Stokes MD Unavailable [phone] Hilton Palacios MD Unavailable Encounter Details Date Type Department Care Team (Late st Contact Info) Description 11/16/2022 Abstract [facility] MEDICINE 230 [place], [place] [phone] Shereen Latham MD 230 [place], [place] [phone] Social History Tobacco Use Types Packs/Day Years [...] 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 Per Dr. Krish Loomis's note from [facility] HIDE EXAMINER, pt was due for repeat colposcopy in [...] Problem(s): Hyperaldosteronism (CMS/HCC) (Resolved 07/29/2023) Seen by [facility] Endocrinology 04/03/2022. Initially seen 12/2021 for hyperaldosteronism. Labs [facility] 10/2021 aldosterone 8, plasma renin 0.11, aldosterone/renin 72.7. She was likely on spironolactone and lisinopril at time of labs. Advise no spironolactone for 6 weeks and recheck renin aldosterone levels with renal panel and magnesium in scraper burrer. 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 -S/p RIGHT mastectomy with sentinel node bx by Dr. [facility] -Adriamycin/Cytoxan based chemotherapy started Oct, completed [...] had ultrasound sound for abdominal pain at [facility]. Ultrasound showed diffusely echogenic parenchyma with focal sparing around the gallbladder. No suspicious lesions. Impression showed liver likely representing hepatic steatosis and non- obstructing right kidney stone. documented in this encounter Plan of Treatment Upcoming Encounters Date Type Department Care Team (Late st Contact Info) Description 03/29/2025 2:00 PM EDT Office Visit [facility] ADULT DENTAL 230 [place] [address] Jeramie Gordonaris 230 [place] [address] 04/25/2025 2:30 PM EDT Medication Management [address] [address] Nupur Bullock, PharmD 230 [place] [address] 04/26/2025 9:30 AM EDT Office Visit [address] [address] Shereen Latham MD [address] [place] [address] documented as of this encounter Visit Diagnoses Not on filedocumented in this encounter Care Teams Automobile Salesman Relationship Specialty Start Date End Date Shereen Latham MD [address] [place] [address] PCP - General Family Medicine 11/02/18 Nupur Bullock, CharleneD [address] [place] [address] Pharmacist Internal Medicine 08/09/24 Sury Benitez [address] [place] [address] [address] Pulmonary Disease 09/27/24 Nirali Madrid OD [address] [place] [address] Optometry 10/27/24 Li Grande MD [address] [place] [address] Hematology and Oncology 10/27/24 Anselmo Gates MD [address] [facility] [address] [place] [address] Orthopaedic Surgery 10/27/24 Margaret Holman [address] 3rd [place] [address] Cardiology 10/27/24 Herberth Stokes MD [address] [facility] [address]rd [place] [address] Gastroenterology 10/27/24 Hilton Palacios MD [address] [place] [address], [address] [place] [address] Neurology 02/06/25 Pily Delaney Realtime ReporterBroom Handle Dipper 07/22/24 Elie Vicky [facility] Psychology 12/29/24 documented as of this encounter
--- OUTSIDE RECORDS SUMMARY | 2025-03-07 12:51 | XMS_ITS | Encounter Summary ---
Author Organization [employer] Address 75 [facility] 7 [place] [address] Care Team Providers Care Home Visits Nurse Name Role Phone Shereen Latham MD Primary Care Provider [phone] Nupur Bullock PharmD Unavailable Sury Benitez Unavailable [phone] Nirali Madrid OD Unavailable Li Grande MD Unavailable [phone] Anselmo Gates MD Unavailable Margaret Holman Unavailable Herberth Stokes MD Unavailable [phone] Hilton Palacios MD Unavailable Reason for Visit * Reason Comments Med Refill Encounter Details Date Type Department Care Team (Late st Contact Info) Description 06/21/2024 Refill [facility] [address] [place], [place] [phone] Shereen Latham MD 230 [place], [place] [phone] Mild intermittent asthma, unspecified whether complicated; Pain [...] Office Visit [facility] ADULT DENTAL [address] [place] [address] Jeramie Gordonaris 230 [place] [address] 04/25/2025 2:30 PM EDT Medication Management [facility] [address] [place] [address] Nupur Bullock PharmD [address] [place] [address] 04/26/2025 9:30 AM EDT Office Visit [facility] [address] [place] [address] Shereen Latham MD [address] [place] [address] documented as of this encounter Visit Diagnoses Diagnosis Mild intermittent asthma, unspecified whether complicated Pain Generalized pain documented in this encounter Additional Health Concerns Assessment Noted Time PHQ-9 Depression Total Score: 13 024 4:53 PM EDT documented as of this encounter Care Teams Home Visits Nurse Relationship Specialty Start Date End Date Shereen Latham MD [address] [place] [address] PCP - General Family Medicine 11/02/18 Nupur Bullock, CharleneD [address] [place] [address] Pharmacist Internal Medicine 08/09/24 Sury Benitez [address] [place] [address] [place] [address] Pulmonary Disease 09/27/24 Nirali Madrid OD [address] [place] [address] Optometry 10/27/24 Li Grande MD 575 [place] [address] Hematology and Oncology 10/27/24 Anselmo Gates MD [address] [facility] [address] [place] [address] Orthopaedic Surgery 10/27/24 Margaret Holman 11 [facility] 3rd [place] [address] Cardiology 10/27/24 Herberth Stokes MD 11 [facility] 3rd [place] [address] Gastroenterology 10/27/24 Hilton Palacios MD 15 [facility], [address] [place] [address] Neurology 02/06/25 Pily Delaney Band Saw Operator Cake CuttingDolly Driver 07/22/24 Elie Vicky [facility] 12/29/24 documented as of this encounter
--- OUTSIDE RECORDS SUMMARY | 2025-03-07 12:51 | XMS_ITS | Encounter Summary ---
Author Organization [employer] Address 75 [facility] 7 [place] [address] Care Team Providers Care Fish Bait Picker Name Role Phone Shereen Latham MD Primary Care Provider [phone] Nupur Bullock PharmD Unavailable [phone] Sury Benitez Unavailable [phone] Nirali Madrid OD Unavailable Li Grande MD Unavailable Anselmo Gates MD Unavailable Margaret Holman Unavailable Herberth Stokes MD Unavailable [phone] Hilton Palacios MD Unavailable Encounter Details Date Type Department Care Team (Late st Contact Info) Description 10/11/2024 Telephone [facility] MEDICINE 230 [place], [place] [phone] Shereen Latham MD 230 [place], [place] [phone] Social History Tobacco Use Types Packs/Day Years [...] 2:00 PM EDT Office Visit [facility] ADULT DENTAL 230 [place] [address] Heidi, Jenny [address] [place] [address] 04/25/2025 2:30 PM EDT Medication Management [facility] MEDICINE [address] [place] [address] Nupur Bullock PharmD 230 [place] [address] 04/26/2025 9:30 AM EDT Office Visit [facility] MEDICINE 230 [place] [address] Shereen Latham MD 230 [place] [address] documented as of this encounter Visit Diagnoses Not on filedocumented in this encounter Additional Health Concerns Assessment Noted Time PHQ-9 Depression Total Score: 13 024 4:53 PM EDT documented as of this encounter Care Teams Fish Bait Picker Relationship Specialty Start Date End Date Shereen Latham MD 230 [place] [address] PCP - General Family Medicine 11/02/18 Nupur Bullock, PharmD 230 [place] [address] Pharmacist Internal Medicine 08/09/24 Sury Benitez [address] [place] [address] Dr [facility] 103 [place] [address] Pulmonary Disease 09/27/24 Nirali Madrid OD [address] [place] [address] Optometry 10/27/24 Li Grande MD 575 [place] [address] Hematology and Oncology 10/27/24 Anselmo Gates MD [address] [facility] [address] [place] [address] Orthopaedic Surgery 10/27/24 Margaret Holman [address] 3rd [place] [address] Cardiology 10/27/24 Herberth Stokes MD [address] 3rd [place] [address] Gastroenterology 10/27/24 Hilton Palacios MD [address] [place] [address] DR, [address] [place] [address] Neurology 02/06/25 Pily Delaney Food Mixer RepairerGlobal Compensation Director 07/22/24 Elie BRASHER [facility] Psychology 12/29/24 documented as of this encounter
--- OUTSIDE RECORDS SUMMARY | 2025-03-07 12:51 | XMS_ITS | Encounter Summary ---
Author Organization [employer] Address 75 [facility] 7t [place] [address] Care Team Providers Care Miter Cutter Name Role Phone Shereen Latham MD Primary Care Provider [phone] Nupur Bullock PharmD Unavailable [phone] Sury Benitez Unavailable JuliusNirali castellanos OD Unavailable Li Grande MD Unavailable [phone] Anselmo Gates MD Unavailable Margaret Holman Unavailable Herberth Stokes MD Unavailable [phone] Hilton Palacios MD Unavailable [phone] Encounter Details Date Type Department Care Team (Latest Contact Info) Description 08/16/2021 Abstract [facility] CONVERSIONS Dental, Provider, DDS Social History [...] Encounters Date Type Department Care Team ( Contact Info) Description 03/29/2025 2:00 PM EDT Office Visit [facility] ADULT DENTAL 230 [place] [address] Jeramie Gordonaris 230 [place] [address] 04/25/2025 2:30 PM EDT Medication Management [address] [address] Nupur Bullock, Pushpa 230 [place] [address] 04/26/2025 9:30 AM EDT Office Visit [address] [address] Shereen Latham MD 230 [place] [address] documented as of this encounter Visit Diagnoses Not on filedocumented in this encounter Care Teams Miter Cutter Relationship Specialty Start Date End Date Shereen Latham MD [address] [place] [address] PCP - General Family Medicine 11/02/18 Nupur Bullock, Pushpa [address] [place] [address] Pharmacist Internal Medicine 08/09/24 Sury Benitez [address] [place] [address] [address] [place] [address] Pulmonary Disease 09/27/24 Nirali Madrid OD [address] [place] [address] Optometry 10/27/24 Li Grande MD [address] [place] [address] Hematology and Oncology 10/27/24 Anselmo Gates MD [address] [place] [address] [address] [place] [address] Orthopaedic Surgery 10/27/24 Margaret Holman [address] 3rd [place] [address] Cardiology 10/27/24 Herberth Stokes MD [address] 3rd [place] [address] Gastroenterology 10/27/24 Hilton Palacios MD [address] [place] [address], [address] [place] [address] Neurology 02/06/25 Pily Delaney Health Safety CoordinatorTire Maker 07/22/24 Elie BRASHER [facility] Psychology 12/29/24 documented as of this encounter
--- OUTSIDE RECORDS SUMMARY | 2025-03-07 12:51 | XMS_ITS | Clinical Summary ---
Author Organization [facility] Address [address] [place] [address] Care Team Providers Care Head Strength And Conditioning Coach Name Role Phone Shereen Latham MD Primary Care Provider [phone] Social History Tobacco Use Types Packs/Day Years [...] age to complete this topic Care Teams Head Strength And Conditioning Coach Relationship Specialty Start Date End Date Shereen Latham MD [address] [place] [phone] PCP - General 01/13/1996
--- OUTSIDE RECORDS SUMMARY | 2025-03-07 12:51 | XMS_ITS | Encounter Summary ---
Author Organization [employer] Address 75 [facility] 7t [place] [address] Care Team Providers Care Kit Planner Name Role Phone Shereen Latham MD Primary Care Provider [phone]- [phone] Nupur Bullock PharmD Unavailable Sury Benitez Unavailable [phone] Nirali Madrid OD Unavailable Li Grande MD Unavailable [phone] Anselmo Gates MD Unavailable Margaret Holman Unavailable Herberth Stokes MD Unavailable [phone] Hilton Palacios MD Unavailable Encounter Details Date Type Department Care Team (Latest Contact Info) Description 03/02/2025 Travel Social History Tobacco Use Types Packs/Day [...] Description 03/29/2025 2:00 PM EDT Office Visit [facility] ADULT DENTAL 230 [place], [place] [phone] Heidi, Jenny 230 [place] [address] 04/25/2025 2:30 PM EDT Medication Management [facility] MEDICINE 230 [place] [address] Nupur Bullock, PharmD 230 [place], [place] [phone] 04/26/2025 9:30 AM EDT Office Visit [facility] MEDICINE 230 [place] [address] Shereen Latham MD 230 [place] [address] documented as of this encounter Visit Diagnoses Not on filedocumented in this encounter Additional Health Concerns Assessment Noted Time PHQ-9 Depression Total Score: 22 025 10:17 AM EST documented as of this encounter Care Teams Kit Planner Relationship Specialty Start Date End Date Shereen Latham MD 230 [place] [address] PCP - General Family Medicine 11/02/18 Nupur Bullock PharmD 230 [place] [address] Pharmacist Internal Medicine 08/09/24 Sury Benitez [address] [place] [address] Dr [facility] 103 [place] [address] Pulmonary Disease 09/27/24 Nirali Madrid OD [address] [place] [address] Optometry 10/27/24 Li Grande MD [address] [place] [address] Hematology and Oncology 10/27/24 Anselmo Gates MD 10 [facility] [address] [place] [address] Orthopaedic Surgery 10/27/24 Margaret Holman 11 [facility] [address] [place] [address] Cardiology 10/27/24 Herberth Stokes MD 11 [facility] [address] [place] [address] Gastroenterology 10/27/24 Hilton Palacios MD [address] [place] [address], [address] [place] [address] Neurology 02/06/25 Pily Delaney Scarfer OperatorCommunity Health Promoter 07/22/24 Elie Vicky [facility] Psychology 12/29/24 documented as of this encounter
--- OUTSIDE RECORDS SUMMARY | 2025-03-07 12:51 | XMS_ITS | Encounter Summary ---
Author Organization [employer] Address 75 [facility] 7t [place] [address] Care Team Providers Care Style Advisor Name Role Phone Shereen Latham MD Primary Care Provider [phone] Nupur Bullock PharmD Unavailable [phone] Sury Benitez Unavailable [phone] JuliusNirali castellanos OD Unavailable Li Grande MD Unavailable [phone] Anselmo Gates MD Unavailable Margaret Holman Unavailable Herberth Stokes MD Unavailable [phone] Hilton Palacios MD Unavailable [phone] Encounter Details Date Type Department Care Team (Latest Contact Info) Description 07/06/2019 Abstract [facility] CONVERSIONS Dental, Provider, DDS Social [...] Care Team ( st Contact Info) Description 03/29/2025 2:00 PM EDT Office Visit [facility] ADULT DENTAL 230 [place] [address] Heidi, Jenny 230 [place] [address] 04/25/2025 2:30 PM EDT Medication Management [address] [address] Nupur Bullock, Pushpa 230 [place] [address] 04/26/2025 9:30 AM EDT Office Visit [address] [address] Shereen Latham MD [address] [place] [address] documented as of this encounter Visit Diagnoses Not on filedocumented in this encounter Care Teams Style Advisor Relationship Specialty Start Date End Date Shereen Latham MD [address] [place] [address] PCP - General Family Medicine 11/02/18 Nupur Bullock, Pushpa [address] [place] [address] Pharmacist Internal Medicine 08/09/24 Sury Benitez [address] [place] [address] [address] [place] [address] Pulmonary Disease 09/27/24 Nirali Madrid OD 267 [place] [address] Optometry 10/27/24 Li Grande MD 575 [place] [address] Hematology and Oncology 10/27/24 Anselmo Gates MD [address] [place] [address] [address] [place] [address] Orthopaedic Surgery 10/27/24 Margaret Holman [address] 3rd [place] [address] Cardiology 10/27/24 Herberth Stokes MD [address] 3rd [place] [address] Gastroenterology 10/27/24 Hilton Palacios MD [address] [place] [address], [address] [place] [address] Neurology 02/06/25 Pily Delaney Carry Out Clerk And Shelf StockerTennis Coach 07/22/24 Elie BRASHER [facility] Psychology 12/29/24 documented as of this encounter
--- OUTSIDE RECORDS SUMMARY | 2025-03-07 12:51 | XMS_ITS | Encounter Summary ---
Author Organization [employer] Address [address] [place] [address] 7 [place] [address] Care Team Providers Care Supervisor Finishing Name Role Phone Shereen Latham MD Primary Care Provider [phone]- [phone] Nupur Bullock PharmD Unavailable Sury Benitez Unavailable [phone] Nirali Madrid OD Unavailable Li Grande MD Unavailable [phone] Anselmo Gates MD Unavailable Margaret Holman Unavailable Herberth Stokes MD Unavailable [phone] Hilton Palacios MD Unavailable Reason for Visit * Reason Comments Med Refill Encounter Details Date Type Department Care Team (Late st Contact Info) Description 12/02/2022 Refill [facility] MEDICINE 230 [place], [place] [phone] Shereen Latham MD 230 [place], [place] [phone] Wheeze (Primary Dx); Pain Social History Tobacco [...] Description 03/29/2025 2:00 PM EDT Office Visit [facility] ADULT DENTAL [address] [place] [address] Heidi, Jenny 230 [place] [address] 04/25/2025 2:30 PM EDT Medication Management [facility] MEDICINE [address] [place] [address] Nupur Bullock PharmD [address] [place] [address] 04/26/2025 9:30 AM EDT Office Visit [facility] MEDICINE [address] [place] [address] Shereen Latham MD [address] [place] [address] documented as of this encounter Visit Diagnoses Diagnosis Wheeze- Primary Wheezing Pain Generalized pain documented in this encounter Care Teams Supervisor Finishing Relationship Specialty Start Date End Date Shereen Latham MD [address] [place] [address] PCP - General Family Medicine 11/02/18 Nupur Bullock, PharmD [address] [place] [address] Pharmacist Internal Medicine 08/09/24 Sury Benitez [address] [place] [address] [place] [address] [place] [address] Pulmonary Disease 09/27/24 Nirali Madrid OD [address] [place] [address] Optometry 10/27/24 Li Grande MD 5 [place] [address] Hematology and Oncology 10/27/24 Anselmo Gates MD [address] [facility] [address] [place] [address] Orthopaedic Surgery 10/27/24 Margaret Holman 11 [facility] 3rd [place] [address] Cardiology 10/27/24 Herberth Stokes MD 11 [facility] 3rd [place] [address] Gastroenterology 10/27/24 Hilton Palacios MD [address] [place] [address], [address] [place] [address] Neurology 02/06/25 Pily Delaney Substation WiremanSoftware Engineer Backend 07/22/24 Elie Vicky [facility] 12/29/24 documented as of this encounter
--- OUTSIDE RECORDS SUMMARY | 2025-03-07 12:51 | XMS_ITS | Encounter Summary ---
Author Organization [employer] Address 75 [facility] 7 [place] [address] Care Team Providers Care Washing Machine Striper Name Role Phone Shereen Latham MD Primary Care Provider [phone] Nupur Bullock PharmD Unavailable Sury Benitez Unavailable [phone] Nirali Madrid OD Unavailable Li Grande MD Unavailable [phone] Anselmo Gates MD Unavailable Margaret Holman Unavailable Herberth Stokes MD Unavailable [phone] Hilton Palacios MD Unavailable [phone] Encounter Details Date Type Department Care Team (Late st Contact Info) Description 04/26/2024 Orders Only [facility] MEDICINE 230 [place], [place] [phone] Junie Damon MD 230 [place], [place] [phone] Social History Tobacco Use Types Packs/Day Years [...] Description 03/29/2025 2:00 PM EDT Office Visit [facility] ADULT DENTAL 230 [place] [address] Jeramie Gordonaris 230 [place] [address] 04/25/2025 2:30 PM EDT Medication Management [facility] MEDICINE 230 [place] [address] Nupur Bullock PharmD 230 [place] [address] 04/26/2025 9:30 AM EDT Office Visit [facility] MEDICINE 230 [place] [address] Shereen Latham MD 230 [place] [address] documented as of this encounter Visit Diagnoses Not on filedocumented in this encounter Additional Health Concerns Assessment Noted Time PHQ-9 Depression Total Score: 23 024 1:45 PM EDT documented as of this encounter Care Teams Washing Machine Striper Relationship Specialty Start Date End Date Shereen Latham MD 230 [place] [address] PCP - General Family Medicine 11/02/18 Nupur Bullock, PharmD 230 [place] [address] Pharmacist Internal Medicine 08/09/24 Sury Benitez [address] [place] [address] Dr [facility] 103 [place] [address] Pulmonary Disease 09/27/24 Nirali Madrid OD [address] [place] [address] Optometry 10/27/24 Li Grande MD 575 [place] [address] Hematology and Oncology 10/27/24 Anselmo Gates MD [address] [facility] [address] [place] [address] Orthopaedic Surgery 10/27/24 Margaret Holman [address] 3rd [place] [address] Cardiology 10/27/24 Herberth Stokes MD [address] 3rd Floor [place] [address] Gastroenterology 10/27/24 Hilton Palacios MD [address] [place] [address], [address] [place] [address] Neurology 02/06/25 Pily Delaney Agriculture InternBleacher Lard 07/22/24 Elie Vicky [facility] 12/29/24 documented as of this encounter
--- OUTSIDE RECORDS SUMMARY | 2025-03-07 12:51 | XMS_ITS | Encounter Summary ---
Author Organization [employer] Address 75 [facility] 7 [place] [address] Care Team Providers Care Paid Search Analyst Name Role Phone hSereen Latham MD Primary Care Provider [phone] Nupur Bullock PharmD Unavailable Sury Benitez Unavailable [phone] Nirali Madrid OD Unavailable Li Grande MD Unavailable [phone] Anselmo Gates MD Unavailable Margaret Holman Unavailable Herberth Stokes MD Unavailable [phone] Hilton Palacios MD Unavailable Reason for Visit * Reason Onset Date Comments Lab Orders 03/02/2025 Encounter Details Date Type Department Care Team (Late st Contact Info) Description 03/02/2025 Telephone [facility] MEDICINE 230 [place], [place] [phone] Shereen Latham MD 230 [place], [place] [phone] Lab Orders Social History Tobacco Use Types [...] Telephone Encounter - Cira Martinez RN - 03/03/2025 12:02 PM EDT TC placed to pt to inform that labs drawn yesterday all look within normal levels. Pt encouraged tocontinue health and lifestyle trends. Pt agreeable and stated understanding * Telephone Encounter - Cira Martinez RN - 03/02/2025 12:06 PM EDT RN called [facility] lab to confirm add on order of uric acid for pt labs drawn this morning. Uric acid order faxed to [facility] lab at [phone] * Telephone Encounter - Shereen Latham MD - 03/02/2025 11:43 AM EDT Can you please see if they can add uric acid to labs from this morning documented in this encounter Plan of Treatment Upcoming Encounters Date Type Department Care Team (Late st Contact Info) Description 03/29/2025 2:00 PM EDT Office Visit [facility] ADULT DENTAL 230 [place] [address] Heidi, Jenny 230 [place] [address] 04/25/2025 2:30 PM EDT Medication Management [facility] MEDICINE [address] [place] [address] Nupur Bullock, PharmD 230 [place] [address] 04/26/2025 9:30 AM EDT Office Visit [facility] MEDICINE [address] [place] [address] Shereen Latham MD 230 [place] [address] documented as of this encounter Procedures Procedure Name Priority Date/Time Associated Diagnosis Comments URIC ACID Routine 03/02/2025 9:00 AM EDT Encounter for routine adult medical examination documented in this encounter Results * Uric acid (03/02/2025 9:00 AM EDT) Uric Acid 5.7 2.4 - 5.7 mg/dL [facility] Blood Venous blood specimen / Unknown 03/02/2025 9:00 AM EDT 03/02/2025 11:23 AM EDT Shereen Latham MD LAB BLOOD ORDERABLES Final Result [facility] [address] [place] [phone] documented in this encounter Visit Diagnoses Diagnosis Encounter for routine adult medical examination documented in this encounter Additional Health Concerns Assessment Noted Time PHQ-9 Depression Total Score: 22 025 10:17 AM EST documented as of this encounter Care Teams Paid Search Analyst Relationship Specialty Start Date End Date Shereen Latham MD 230 [place] [address] PCP - General Family Medicine 11/02/18 Nupur Bullock, CharleneD 230 [place] [address] Pharmacist Internal Medicine 08/09/24 Sury Benitez [address] [place] [address] 103 [place] [address] Pulmonary Disease 09/27/24 Nirali Madrid OD [address] [place] [address] Optometry 10/27/24 Li Grande MD 575 [place] [address] Hematology and Oncology 10/27/24 Anselmo Gates MD 10 [facility] [address] [place] [address] Orthopaedic Surgery 10/27/24 Margaret Holman [address] 3rd [place] [address] Cardiology 10/27/24 Herberth Stokes MD [address] [facility] [address] 3rd [place] [address] Gastroenterology 10/27/24 Hilton Palacios MD [address] [place] [address], [address] [place] [address] Neurology 02/06/25 Pily Delaney Supply CataloguerTechnical Artist 07/22/24 Elie Vicky [facility] Psychology 12/29/24 documented as of this encounter
--- OUTSIDE RECORDS SUMMARY | 2025-03-07 12:51 | XMS_ITS | Encounter Summary ---
Author Organization [employer] Address 75 [facility] 7t [place] [address] Care Team Providers Care Boat Master Name Role Phone Shereen Latham MD Primary Care Provider [phone] Nupur Bullock PharmD Unavailable Sury Benitez Unavailable [phone] Nirali Madrid OD Unavailable Li Grande MD Unavailable Anselmo Gates MD Unavailable Margaret Holman Unavailable Herberth Stokes MD Unavailable [phone] Hilton Palacios MD Unavailable Encounter Details Date Type Department Care Team (Late st Contact Info) Description 10/22/2023 Orders Only [facility] MEDICINE 230 [place], [place] [phone] Shereen Latham MD 230 [place], [place] [phone] Vitamin D deficiency Social History Tobacco Use [...] Description 03/29/2025 2:00 PM EDT Office Visit [facility] ADULT DENTAL 230 [place] [address] Jenny Gordon [address] [place] [address] 04/25/2025 2:30 PM EDT Medication Management [facility] MEDICINE [address] [place] [address] Nupur Bullock PharmD 230 [place] [address] 04/26/2025 9:30 AM EDT Office Visit [facility] MEDICINE [address] [place] [address] Shereen Latham MD 230 [place] [address] documented as of this encounter Visit Diagnoses Diagnosis Vitamin D deficiency documented in this encounter Additional Health Concerns Assessment Noted Time PHQ-9 Depression Total Score: 21 023 10:42 AM EST documented as of this encounter Care Teams Boat Master Relationship Specialty Start Date End Date Shereen Latham MD 230 [place] [address] PCP - General Family Medicine 11/02/18 Nupur Bullock, CharleneD 230 [place] [address] Pharmacist Internal Medicine 08/09/24 Sury Benitez [address] [place] [address] Dr [address] [place] [address] Pulmonary Disease 09/27/24 Nirali Madrid OD 267 [place] [address] Optometry 10/27/24 Li Grande MD [address] [place] [address] Hematology and Oncology 10/27/24 Anselmo Gates MD [address] [place] [address] Orthopaedic Surgery 10/27/24 Margaret Holman [address] 3rd [place] [address] Cardiology 10/27/24 Herberth Stokes MD 11 [facility] 3rd [place] [address] Gastroenterology 10/27/24 Hilton Palacios MD [address] [place] [address] DR, [address] [place] [address] Neurology 02/06/25 Pily Delaney Graduate Research AssistantMachine Setup Operator 07/22/[address] [facility] Psychology 12/29/24 documented as of this encounter
--- OUTSIDE RECORDS SUMMARY | 2025-03-07 12:51 | XMS_ITS | Encounter Summary ---
Author Organization [employer] Address 75 [facility] 7 [place] [address] Care Team Providers Care Charging Crane Operator Name Role Phone Shereen Latham MD Primary Care Provider [phone] Nupur Bullock PharmD Unavailable Sury Benitez Unavailable [phone] Nirali Madrid OD Unavailable [phone] Li Grande MD Unavailable [phone] Anselmo Gates MD Unavailable Margaret Holman Unavailable Herberth Stokes MD Unavailable [phone] Hilton Palacios MD Unavailable Reason for Visit * Reason Onset Date Comments Nurse Triage 02/13/2025 Encounter Details Date Type Department Care Team (Late st Contact Info) Description 02/13/2025 Telephone [facility] MEDICINE 230 [place], [place] [phone] Shereen Latham MD 230 [place], [place] [phone] Nurse Triage Social History Tobacco Use Types [...] Description 03/29/2025 2:00 PM EDT Office Visit [facility] ADULT DENTAL 230 [place] [address] Heidi, Jenny 230 [place] [address] 04/25/2025 2:30 PM EDT Medication Management [facility] MEDICINE 230 [place], [place] [phone] Nupur Bullock, PharmD 230 [place] [address] 04/26/2025 9:30 AM EDT Office Visit [facility] MEDICINE [address] [place] [address] Shereen Latham MD 230 [place] [address] documented as of this encounter Visit Diagnoses Not on filedocumented in this encounter Additional Health Concerns Assessment Noted Time PHQ-9 Depression Total Score: 22 12/29/ 025 10:17 AM EST documented as of this encounter Care Teams Charging Crane Operator Relationship Specialty Start Date End Date Shereen Latham MD 230 [place] [address] PCP - General Family Medicine 11/02/18 Nupur Bullock, CharleneD [address] [place] [address] Pharmacist Internal Medicine 08/09/24 Sury Benitez [address] [place] [address] Dr [facility] 103 [place] [address] Pulmonary Disease 09/27/24 Nirali Madrid OD 267 [place] [address] Optometry 10/27/24 Li Grande MD [address] [place] [address] Hematology and Oncology 10/27/24 Anselmo Gates MD [address] [place] [address] Orthopaedic Surgery 10/27/24 Margaret Holman 11 [facility] 3rd [place] [address] Cardiology 10/27/24 Herberth Stokes MD 11 [facility] 3rd [place] [address] Gastroenterology 10/27/24 Hilton Palacios MD [address] [place] [address], [address] [place] [address] Neurology 02/06/25 Pily Delaney Insulation Cupola OperatorFirer Boiler 07/22/24 Elie Vicky [facility] Psychology 12/29/24 documented as of this encounter
--- OUTSIDE RECORDS SUMMARY | 2025-03-07 12:51 | XMS_ITS | Encounter Summary ---
Author Organization [employer] Address 75 [facility] 7 [place] [address] Care Team Providers Care Etl Consultant Name Role Phone Shereen Latham MD Primary Care Provider [phone] Nupur Bullock PharmD Unavailable Sury Benitez Unavailable [phone] Nirali Madrid OD Unavailable Li Grande MD Unavailable [phone] Anselmo Gates MD Unavailable Margaret Holman Unavailable Herberth Stokes MD Unavailable [phone] Hilton Palacios MD Unavailable Reason for Visit * Reason Onset Date Comments ER Follow-up 12/07/2024 Encounter Details Date Type Department Care Team (Late st Contact Info) Description 12/07/2024 Telephone [facility] MEDICINE 230 [place], [place] [phone] Shereen Latham MD 230 [place], [place] [phone] ER Follow-up Social History Tobacco Use Types [...] TC placed to pt to f/u on [facility] ED visit on 12/06/2024 for right lower [...] ED visit on : Date: 12/06/24 Hospital: [facility] Seen for: Flu Patient advised will forward to team nurse for follow up documented in this encounter Plan of Treatment Upcoming Encounters Date Type Department Care Team (Late st Contact Info) Description 03/29/2025 2:00 PM EDT Office Visit [facility] ADULT DENTAL 230 [place] [address] Heidi, Jenny 230 [place] [address] 04/25/2025 2:30 PM EDT Medication Management [facility] MEDICINE [address] [place] [address] Nupur Bullock, PharmD 230 [place] [address] 04/26/2025 9:30 AM EDT Office Visit [facility] MEDICINE [address] [place] [address] Shereen Latham MD 230 [place] [address] documented as of this encounter Visit Diagnoses Not on filedocumented in this encounter Additional Health Concerns Assessment Noted Time PHQ-9 Depression Total Score: 13 06/07/ 024 4:53 PM EDT documented as of this encounter Care Teams Etl Consultant Relationship Specialty Start Date End Date Shereen Latham MD [address] [place] [address], [place] [address] PCP - General Family Medicine 11/02/18 Nupur Bullock, Pushpa 230 [place] [address] Pharmacist Internal Medicine 08/09/24 Sury Benitez [address] [place] [address] [address] [place] [address] Pulmonary Disease 09/27/24 Nirali Mdarid, SUSAN 267 [place] [address] Optometry 10/27/24 Li Grande MD [address] [place] [address] Hematology and Oncology 10/27/24 Anselmo Gates MD [address] [facility] [address] [place] [address] Orthopaedic Surgery 10/27/24 Margaret Holman 11 [facility] 3rd [place] [address] Cardiology 10/27/24 Herberth Stokes MD 11 [facility] 3rd [place] [address] Gastroenterology 10/27/24 Hilton Palacios MD 15 [facility], [address] [place] [address] Neurology 02/06/25 Pily Delaney Teacher Industrial ArtsDirector Account Management 07/22/24 Elie Vicky [facility] 12/29/24 documented as of this encounter
--- OUTSIDE RECORDS SUMMARY | 2025-03-07 12:51 | XMS_ITS | Encounter Summary ---
Author Organization [employer] Address [address] [place] [address] [place] [address] Care Team Providers Care Windows Server Administrator Name Role Phone Shereen Latham MD Primary Care Provider + [phone] Nupur Bullock PharmD Unavailable Sury Benitez Unavailable [phone] Nirali Madrid OD Unavailable Li Grande MD Unavailable [phone] Anselmo Gates MD Unavailable Margaret Holman Unavailable Herberth Stokes MD Unavailable [phone] Hilton Palacios MD Unavailable [phone] Reason for Referral * Consultation (Routine) - Authorized Specialty Diagnoses / Procedures Referred By Walter nelson Referred To Contact Family Medicine Diagnoses Fibromyalgia Shereen Latham MD [address] [place] [address] Phone: tel: fax: Referral ID Status Reason Start Date Expiration Date Visits Requested Visits Authorized [id number] Authorized Consult and Treat 03/02/2025 03/02/2026 1 1 Reason for Visit * Reason Comments Generalized Body Aches Encounter Details Date Type Department Care Team (Late st Contact Info) Description 03/02/2025 11:15 AM EDT Office Visit [facility] [address] [place] [address] Shereen Latham MD [address] [place] [address] Fibromyalgia (Primary Dx); Nasal congestion; History of right breast cancer; Atrial tachycardia (CMS/HCC); Benign essential hypertension Social History Tobacco Use [...] Mass Index 31.51 03/02/2025 11:24 AM EDT documented in this encounter Progress Notes * Shereen Latham MD - 03/02/2025 11:15 AM EDT Subjective Patient ID: Azra Cast is a 49 y.o. female with past medical history of alcohol use disorder last intake June 04, anemia, breast cancer, essential hypertension, GERD, history of gout recent flares(twice in the past 3 weeks) and congestive heart failure who presents for Generalized Body Aches. Seen in the ER/hospital recurrently over the last year: 12/17/23 [facility] ED with alcohol withdrawal. 01/02/24 [facility] ED with alcohol withdrawal. 04/09/24 [facility] with alcohol withdrawal. 04/11/24 [facility] with alcohol withdrawal. 04/21/24 [facility] ED or left ankle pain. Dx with gout. Treated with prednisone. 06/24/24 hospitalized for congestive heart failure and hypertensive emergency. 07/06/24 [facility] ED for chest pain. 07/25/2024 - 07/27/2024 [facility] presented with right knee pain. Admitted for gout, treated with steroids and colchicine. 08/07/2024 [facility] presented for right knee gout exacerbation. Provided another course of steroids and colchicine. 09/07/24 [facility] ED for chest pain. 10/31/24 [facility] for chest pain. Dx with chest wall pain. 11/21/24 [facility] ED for R knee pain. Dx with gout and treated with prednisone. 12/06/24 [facility] for abdominal pain. Dx with muscle strain. 12/11/24 [facility] ED for water retention. Dx with dyspnea, did not seem fluid overloaded. 12/20/24 [facility] ED for right knee pain, treated for gout with prednisone Pt reports her chronic pain has been worse and she has been having pain with most movements and even breathing. Has upcoming follow-up with rheumatology. She reports she has an appt for her breast biopsy. Pt notes she saw neurology but she did not want to take the medication prescribed because of the side effects. Review of Systems Constitutional: Negative for fever and unexpected weight change. HENT: Positive for congestion. Respiratory: Negative for shortness of breath. Cardiovascular: Negative for chest pain. Gastrointestinal: Negative for abdominal pain. Genitourinary: Negative for difficulty urinating. Musculoskeletal: Positive for myalgias. Objective Visit Vitals BP 119/86 (BP Location: Left arm, Patient Position: Sitting, BP Cuff Size: Adult) Pulse (!) 120 Temp 97.1 ??F (36.2 ??C) (Temporal) Resp 20 Ht 5' 7 (1.702 m) Wt 201 lb 3.2 oz (91.3 kg) SpO2 99% BMI 31.51 kg/m?? OB Status Hysterectomy Smoking Status Some Days BSA 2.08 m?? Physical Exam Constitutional: Appearance: Normal appearance. Cardiovascular: Rate and Rhythm: Normal rate and regular rhythm. Heart sounds: Normal heart sounds. Pulmonary: Effort: Pulmonary effort is normal. Breath sounds: Normal breath sounds. Musculoskeletal: Cervical back: Normal range of motion and neck supple. Neurological: General: No focal deficit present. Mental Status: She is alert. Psychiatric: Behavior: Behavior normal. Problem List Items Addressed This Visit Fibromyalgia - Primary Pt has chronic pain syndrome. Multiple work [...] chronic pain group 03/02/25, recommended acupuncture clinic. Relevant Orders Referral to [facility] Nasal congestion Reports chronic-prolonged nasal congestion, due to allergies versus body habitus versus underlying chronic disease. 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 -S/p RIGHT mastectomy with sentinel node bx by Dr. [facility] -Adriamycin/Cytoxan based chemotherapy started Oct, [...] evaluation and follow-up. New focal asymmetry in thecentral outer breast posterior depth with questioned distortion without sonographic correlate. Recommend stereotactic core needle biopsy at this time for confirmation. The findings and recommendations were discussed with the patient the procedure will be scheduled. BI-RADS BI-RADS 4 - Suspicious finding -has appt for mammogram and biopsy scheduled. Atrial tachycardia (CMS/HCC) -per note from Margaret Holman 02/27/25 EKG [...] have her take metoprolol 25 mg daily. Willcheck Holter monitor to assess for average heart rate. If she continues to have tachycardia then dose can be increased up to 50 mg daily. Benign essential hypertension -Blood pressure is at goal -Continue lifestyle modifications -Continue current medications - Prescribed spironolactone (Aldactone) 25 MG tablet 11/09/24 Follow up for Next scheduled follow-up. I, Ariela Read, am serving as a scribe to document services personally performed by Dr. Suh, based on the patient's response to questions by provider and providers statements to me. documented in this encounter Miscellaneous Notes * Assessment & Plan Note - Ariela Read - 03/02/2025 11:59 AM EDTAssociated Problem(s): Nasal congestion Reports chronic-prolonged nasal congestion, due to allergies versus body habitus versus underlying chronic disease. - prescribed cetirizine (ZyrTEC) 10 MG - prescribed sodium chloride (ocean) 65% nasal spay * Assessment & Plan Note - Ariela Read - 03/02/2025 11:54 AM EDTAssociated Problem(s): Benign essential hypertension -Blood pressure is at goal -Continue lifestyle modifications -Continue current medications - Prescribed spironolactone (Aldactone) 25 MG tablet 11/09/24 * Assessment & Plan Note - Ariela Read - 03/02/2025 11:54 AM EDTAssociated Problem(s): Atrial tachycardia (CMS/HCC) -per note from Margaret Holman 02/27/25 EKG [...] have her take metoprolol 25 mg daily. Willcheck Holter monitor to assess for average heart rate. If she continues to have tachycardia then dose can be increased up to 50 mg daily. 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 -S/[facility]Cy[facility]an [facility] started Oct, completed 4 [...] evaluation and follow-up. New focal asymmetry in thecentral outer breast posterior depth with questioned distortion without sonographic correlate. Recommend stereotactic core needle biopsy at this time for confirmation. The findings and recommendations were discussed with the patient the procedure will be scheduled. BI-RADS BI-RADS 4 - Suspicious finding -has appt for mammogram and biopsy scheduled. * Assessment & Plan Note - Ariela Read - 03/02/2025 11:41 AM EDTAssociated Problem(s): Fibromyalgia Pt has chronic pain syndrome. [...] chronic pain group 03/02/25, recommended acupuncture clinic. documented in this encounter Plan of Treatment Upcoming Encounters Date Type Department Care Team (Late st Contact Info) Description 03/29/2025 2:00 PM EDT Office Visit [facility] [address] [place] [address] Jenny Gordon [address] [place] [address] 04/25/2025 2:30 PM EDT Medication Management [facility] [address] [place] [address] Nupur Bullock PharmD [address] [place] [address] 04/26/2025 9:30 AM EDT Office Visit [facility] [address] [place] [address] Shereen Latham MD [address] [place] [address] Scheduled Referrals Name Type Priority Associated Diagnoses Orde r Schedule Referral to [facility] Outpatient Referral Routine Fibromyalgia Expected: 03/02/2025 (Approximate), Expires: 03/02/2026 documented as of this encounter Visit Diagnoses Diagnosis Fibromyalgia- Primary Unspecified myalgia and myositis Nasal congestion Other diseases of nasal cavity and sinuses History of right breast cancer Atrial tachycardia (CMS/HCC) Other specified cardiac dysrhythmias Benign essential hypertension Essential hypertension, benign documented in this encounter Additional Health Concerns Assessment Noted Time PHQ-9 Depression Total Score: 22 025 10:17 AM EST documented as of this encounter Care Teams Windows Server Administrator Relationship Specialty Start Date End Date Shereen Latham MD [address] [place] [address] PCP - General Family Medicine 11/02/18 Nupur Bullock, Pushpa [address] [place] [address] Pharmacist Internal Medicine 08/09/24 Sury Benitez [address] [place] [address] [place] [address] Pulmonary Disease 09/27/24 Nirali Madrid OD [address] [place] [address] Optometry 10/27/24 Li Grande MD [address] [place] [address] Hematology and Oncology 10/27/24 Anselmo Gates MD [address] [place] [address] Orthopaedic Surgery 10/27/24 Margaret Holman [address] 3rd [place] [address] Cardiology 10/27/24 Herberth Stokes MD 11 [facility] 3rd [place] [address] Gastroenterology 10/27/24 Hilton Palacios MD 15 [facility], [address] [place] [address] Neurology 02/06/25 Pily Delaney Endless Track Vehicle SupervisorTesting And Regulating Chief 07/22/24 Elie Vicky [facility] [place] 12/29/24 documented as of this encounter
== END 2025-03-07 11:35 | disposition home or self-care (01) ==
LOC: HO.HGS 11:04
PROVIDERS: PCP Family Medicine; Visit Provider Surgery
DX: R92.8 Other abnormal and inconclusive findings on diagnostic imaging of breast (principal); C50.919 Malignant neoplasm of unspecified site of unspecified female breast
CPT/HCPCS: 99204

== ENCOUNTER → 2025-03-07 11:03 | Outpatient (BNVA) | payer MEDICAID, SELFPAY | PROVIDERS: PCP Family Medicine; Visit Provider Surgery | DX: N64.4 Mastodynia (principal); R92.8 Other abnormal and inconclusive findings on diagnostic imaging of breast; C50.911 Malignant neoplasm of unspecified site of right female breast | CPT/HCPCS: 99202 ==

== ENCOUNTER 2025-03-08 09:32 | Outpatient (REF) | payer MEDICAID, SELFPAY ==
--- NOTE | ~2025-03-08 | MM_ITS ---
EXAMINATION: STEREOTACTICALLY-GUIDED LEFT BREAST BIOPSY CLINICAL INFORMATION: New developing focal asymmetry with subtle architectural distortion in the central outer left breast posterior depth no sonographic correlate was seen before stereotactic core needle biopsy was recommended. COMPARISON: Priors on PACS. INFORMED CONSENT: After the details of the procedure, as well as the risks (including, but not limited to, bleeding, hematoma formation, and infection), benefits and alternatives (including doing nothing, short-interval follow up, and surgery) to the procedure were explained to the patient in detail and all of her questions were answered, informed written consent was obtained. TECHNIQUE/FINDINGS: A timeout was performed. The lesion intended for biopsy was identified stereotactically and targeted. The skin of the left breast was then cleansed with sterile solution. Using stereotactic guidance, aseptic technique, and 1% lidocaine with and without epinephrine for local anesthesia, a total of 9 cores were obtained through the targeted area with a 9-gauge vacuum-assisted Eviva core biopsy device from a inferior approach. At the completion of tissue sampling, a single top hat-shaped metallic clip was deposited at the biopsy site. Adequate sampling was achieved. The postprocedure 2-view direct digital mammogram reveals the biopsy clip to be located 2.6 cm medial to the original area of focal asymmetry with distortion.. The patient tolerated the procedure well and, after assuring adequate hemostasis, was discharged in good condition after reviewing postbiopsy breast care instructions. Final pathology results are pending. MM/MM stereotactic biopsy LT IMPRESSION: 1. Uncomplicated stereotactically-guided core biopsy of the left breast. The 2-view direct digital postprocedure mammogram demonstrates the marker clip to be 2.6 cm medial to the original area of distortion which was not targeted and not seen during targeting. Management for this area will be pending pathology of the above biopsy. 2. Final pathology results are pending. A separate report with final recommendations will be issued once these results are made available. Electronically signed by: Cara Rodriges DO 03/08/2025 11:55 AM EDT
[2025-03-08] MEDS: Sodium Bicarbonate 8.4% 50 MEQ/50 ML VIAL SUBCUT (11:36)
[2025-03-08] MEDS: Lidocaine HCl 1%/Epi 1:100,000 10 ML VIAL 13 ML SUBCUT (11:38)
== END 2025-03-08 09:33 | disposition home or self-care (01) ==
LOC: HO.MAMMO 09:32
PROVIDERS: Absent Provider Internal Medicine Medical Oncology; PCP Family Medicine; Visit Provider Surgery
DX: R92.8 Other abnormal and inconclusive findings on diagnostic imaging of breast (principal); C50.919 Malignant neoplasm of unspecified site of unspecified female breast
CPT/HCPCS: 19081; 88305; 88342; 88360; A4648; J2004

== ENCOUNTER → 2025-03-08 10:00 | Outpatient (BNV) | payer MEDICAID, SELFPAY | PROVIDERS: Absent Provider Internal Medicine Medical Oncology; PCP Family Medicine; Visit Provider Internal Medicine | DX: N60.82 Other benign mammary dysplasias of left breast (principal) | CPT/HCPCS: 19081; 77065 ==

== ENCOUNTER → 2025-03-16 13:22 | Outpatient (REF) | payer MEDICAID, SELFPAY ==
--- OUTSIDE RECORDS SUMMARY | 2025-03-16 13:59 | XMS_ITS | Encounter Summary ---
Author Organization [employer] Address [address] [facility] 7 [place] [address] Care Team Providers Care Video Tape Editor Name Role Phone Shereen Latham MD Primary Care Provider [phone] Nupur Bullock PharmD Unavailable Sury Benitez Unavailable [phone] Nirali Madrid OD Unavailable Li Grande MD Unavailable [phone] Anselmo Gates MD Unavailable Margaret Holman Unavailable Herberth Stokes MD Unavailable [phone] Hilton Palacios MD Unavailable Aaron Pringle MD Unavailable [phone] Reason for Visit * Reason Onset Date Comments Nurse Triage 05/25/2024 Encounter Details Date Type Department Care Team (Late st Contact Info) Description 05/25/2024 Telephone [facility] [address] [place], [place] [phone] Shereen Latham MD [address] [place], [place] [phone] Nurse Triage Social History Tobacco Use Types [...] leftfoot pain and Pt was seen by lucerne farmer, Leta Lunsford MD 05/11/24 also (report is on the chart). Pt had been advised to stop BP med chlorthalidone per lucerne farmer [facility] because that particular medication is known to [...] Description 03/29/2025 2:00 PM EDT Office Visit [facility] [address] [place] [address] Heidi, Jenny [address] [place] [address] 04/25/2025 2:30 PM EDT Medication Management [facility] [address] [place] [address] Nupur Bullock, Pushpa [address] [place] [address] 04/26/2025 9:30 AM EDT Office Visit [facility] [address] [place] [address] Shereen Latham MD [address] [place] [address] documented as of this encounter Visit Diagnoses Not on filedocumented in this encounter Additional Health Concerns Assessment Noted Time PHQ-9 Depression Total Score: 22 024 9:12 AM EDT documented as of this encounter Care Teams Video Tape Editor Relationship Specialty Start Date End Date Shereen Latham MD [address] [place] [phone] PCP - General Family Medicine 11/02/18 Nupur Bullock, CharleneD [address] [place] [address] Pharmacist Internal Medicine 08/09/24 Sury Benitez [address] [place] [address] [place] [address] Pulmonary Disease 09/27/24 Nirali Madrid OD [address] [place] [address] Optometry 10/27/24 Li Grande MD [address] [place] [address] Hematology and Oncology 10/27/24 Anselmo Gates MD [address] [place] [address] Orthopaedic Surgery 10/27/24 Margaret Holman [address] [place] [address] Cardiology 10/27/24 Herberth Stokes MD [address] [place] [address] Gastroenterology 10/27/24 Hilton Palacios MD [address] [place] [address], [address] [place] [address] Neurology 02/06/25 Aaron Pringle MD 11 [facility] 3rd [place] [address] General Surgery 03/07/25 Pily Delaney Supervisor PumpingProduct Mgr 07/22/24 Elie Vicky [facility] 12/29/24 documented as of this encounter
--- OUTSIDE RECORDS SUMMARY | 2025-03-16 13:59 | XMS_ITS | Encounter Summary ---
Author Organization [employer] Address [address] [facility] 7 [place] [address] Care Team Providers Care Mine Environmental Engineer Name Role Phone Shereen Latham MD Primary Care Provider [phone] Nupur Bullock PharmD Unavailable Sury Benitez Unavailable [phone] Nirali Madrid OD Unavailable Li Grande MD Unavailable [phone] Anselmo Gates MD Unavailable Margaret Holman Unavailable Herberth Stokes MD Unavailable [phone] Hilton Palacios MD Unavailable Aaron Pringle MD Unavailable [phone] Reason for Visit * Reason Comments Med Refill Encounter Details Date Type Department Care Team (Late st Contact Info) Description 06/21/2024 Refill [facility] [address] [place], [place] [phone] Shereen Latham MD [address] [place], [place] [phone] Mild intermittent asthma, unspecified whether complicated; Pain [...] Description 03/29/2025 2:00 PM EDT Office Visit [facility] [address] [place] [address] Heidi, Jenny [address] [place] [address] 04/25/2025 2:30 PM EDT Medication Management [facility] [address] [place] [address] Nupur Bullock PharmD [address] [place] [address] 04/26/2025 9:30 AM EDT Office Visit [facility] [address] [place] [address] Shereen Latham MD [address] [place] [address] documented as of this encounter Visit Diagnoses Diagnosis Mild intermittent asthma, unspecified whether complicated Pain Generalized pain documented in this encounter Additional Health Concerns Assessment Noted Time PHQ-9 Depression Total Score: 13 024 4:53 PM EDT documented as of this encounter Care Teams Mine Environmental Engineer Relationship Specialty Start Date End Date Shereen Latham MD [address] [place] [address] PCP - General Family Medicine 11/02/18 Nupur Bullock, PharmD [address] [place] [address] Pharmacist Internal Medicine 08/09/24 Sury Benitez [address] [place] [address] [place] [address] Pulmonary Disease 09/27/24 Nirali Madrid OD [address] [place] [address] Optometry 10/27/24 Li Grande MD [address] [place] [address] Hematology and Oncology 10/27/24 Anselmo Gates MD [address] [facility] [address] [place] [address] Orthopaedic Surgery 10/27/24 Margaret Holman [address] [place] [address] Cardiology 10/27/24 Herberth Stokes MD 11 [facility] 3rd [place] [address] Gastroenterology 10/27/24 Hilton Palacios MD 15 [facility], [address] [place] [address] Neurology 02/06/25 Aaron Pringle MD 11 [facility] 3rd [place] [address] General Surgery 03/07/25 Pily Delaney Director TransportationHand Coper 07/22/24 Elie BRASHER [facility] 12/29/24 documented as of this encounter
--- OUTSIDE RECORDS SUMMARY | 2025-03-16 13:59 | XMS_ITS | Encounter Summary ---
Author Organization [employer] Address [address] [facility] 7 [place] [address] Care Team Providers Care Sheet Heater Helper Name Role Phone Shereen Latham MD Primary Care Provider [phone] Nupur Bullock PharmD Unavailable Sury Benitez Unavailable [phone] Nirali Madrid OD Unavailable Li Grande MD Unavailable Anselmo Gates MD Unavailable Margaret Holman Unavailable Herberth Stokes MD Unavailable [phone] Hilton Palacios MD Unavailable [phone] Aaron Pringle MD Unavailable [phone] Encounter Details Date Type Department Care Team (Late st Contact Info) Description 04/26/2024 Orders Only [facility] [address] [place], [place] [phone] Junie Damon MD [address] [place], [place] [phone] Social History Tobacco Use Types Packs/Day Years [...] Description 03/29/2025 2:00 PM EDT Office Visit [facility] AD[facility] [address] [place] [address] Jeramie Gordonaris [address] [place] [address] 04/25/2025 2:30 PM EDT Medication Management [facility] [address] [place] [address] Nupur Bullock PharmD [address] [place] [address] 04/26/2025 9:30 AM EDT Office Visit [facility] [address] [place] [address] Shereen Latham MD [address] [place] [address] documented as of this encounter Visit Diagnoses Not on filedocumented in this encounter Additional Health Concerns Assessment Noted Time PHQ-9 Depression Total Score: 23 024 1:45 PM EDT documented as of this encounter Care Teams Sheet Heater Helper Relationship Specialty Start Date End Date Shereen Latham MD [address] [place] [address] PCP - General Family Medicine 11/02/18 Nupur Bullock, CharleneD [address] [place] [address] Pharmacist Internal Medicine 08/09/24 Sury Benitez [address] [place] [address] Dr [facility] [address] [place] [address] Pulmonary Disease 09/27/24 Nirali Madrid OD [address] [place] [address] Optometry 10/27/24 Li Grande MD [address] [place] [address] Hematology and Oncology 10/27/24 Anselmo Gates MD [address] [place] [address] Drive [address] [place] [address] Orthopaedic Surgery 10/27/24 Margaret Holman [address] 3rd [place] [address] Cardiology 10/27/24 Herberth Stokes MD [address] 3rd [place] [address] Gastroenterology 10/27/24 Hilton Palacios MD [address] [place] [address], [address] [place] [address] Neurology 02/06/25 Aaron Pringle MD [address] [place] [address] General Surgery 03/07/25 Pily Delaney Carton Waxing Machine OperatorCigarette Examiner 07/22/24 Elie Vicky [facility] Psychology 12/29/24 documented as of this encounter
--- OUTSIDE RECORDS SUMMARY | 2025-03-16 13:59 | XMS_ITS | Encounter Summary ---
Author Organization [employer] Address [address] [facility] 7 [place] [address] Care Team Providers Care Outdoor Pursuits Instructor Name Role Phone Shereen Latham MD Primary Care Provider [phone] Nupur Bullock PharmD Unavailable Sury Benitez Unavailable Nirali Madrid OD Unavailable [phone] Li Grande MD Unavailable [phone] Anselmo Gatse MD Unavailable Margaret Holman Unavailable Herberth Stokes MD Unavailable [phone] Hilton Palacios MD Unavailable [phone] Aaron Pringle MD Unavailable [phone] Encounter Details Date Type Department Care Team (Late st Contact Info) Description 10/22/2023 Orders Only [facility] [address] [place], [place] [phone] Shereen Latham MD [address] [place], [place] [phone] Vitamin D deficiency Social History Tobacco Use [...] AM EDT documented as of this encounter Functional Status * Over the past 2 weeks, how often have you been bothered by any of the following problems? Question Answer Date of Assessment Author Patient Health Questionnaire -2 Score 6 10/22/2023 10:42 AM Michelle Holland P hD * If you checked off any problems on this questionnaire so far, Question Answer Date of Assessment Author How difficult have these problems made it for you to do your work, take care of things at home, or get along with other people? Extremely difficult 10/22/2023 10:42 AM Michelle Holland P hD * Over the last 2 weeks, how often have you been bothered by any of the following problems? Question Answer Date of Assessment Author Feeling nervous, anxious, or on edge 3 10/22/2023 10:44 AM Michelle Holland P hD Not being able to stop or co ntrol worrying 3 10/22/2023 10:44 AM Michelle Holland P hD Worrying too much about diff erent things 3 10/22/2023 10:44 AM Michelle Holland P hD Trouble relaxing 3 10/22/2023 10:44 AM Michelle Holland, PhD Being so restless that it is hard to sit still 3 10/22/2023 10:44 AM Michelle Holland P hD Becoming easily annoyed or irritable 3 10/22/2023 10:44 AM Michelle Holland P hD Feeling afraid as if somethi ng awful might happen 3 10/22/2023 10:44 AM Michelle Holland P hD STEFANY-7 Total Score 21 10/22/2023 10:44 AM Michelle Holland, PhD * Over the past 2 weeks, how often have you been bothered by any of the following problems? Question Answer Date of Assessment Author Little interest or pleasure in doing things Nearly every day 10/22/2023 10:42 AM Yung Holland, PhD Feeling down, depressed, or hopeless Nearly every day 10/22/2023 10:42 AM Michelle Holland P hD Trouble falling or staying asleep, or sleeping too much Nearly every day 10/22/2023 10:42 AM Michelle Holland P hD Feeling tired or having little energy Nearly every day 10/22/2023 10:42 AM Michelle Holland P hD Poor appetite or overeating Nearly every day 10/22/2023 10:42 AM Michelle Holland P hD Feeling bad about yourself - or that you are a failure or have let yourself or your family down Not at all 10/22/2023 10:42 AM Michelle Holland P hD Trouble concentrating on things, such as reading the newspaper or watching television Nearly every day 10/22/2023 10:42 AM Michelle Holland P hD Moving or speaking so slowly that other people could have noticed? Or the opposite - being so fidgety or restless that you have been moving around a lot more than usual. Nearly every day 10/22/2023 10:42 AM Michelle Holland P hD Thoughts that you would be better off or hurting yourself in some way Not at all 10/22/2023 10:42 AM Michelle Holland, PhD Patient Health Questionnaire-9 Score 21 10/22/2023 10:42 AM Michelle Holland, PhD documented as of this encounter Plan of Treatment Upcoming Encounters Date Type Department Care Team (Late st Contact Info) Description 03/29/2025 2:00 PM EDT Office Visit [facility] [address] [place] [address] Heidi Jenny [address] [place] [address] 04/25/2025 2:30 PM EDT Medication Management [facility] [address] [place] [address] Nupur Bullock PharmD [address] [place] [address] 04/26/2025 9:30 AM EDT Office Visit [facility] [address] [place] [address] Shereen Latham MD [address] [place] [address] documented as of this encounter Visit Diagnoses Diagnosis Vitamin D deficiency documented in this encounter Additional Health Concerns Assessment Noted Time PHQ-9 Depression Total Score: 21 023 10:42 AM EST documented as of this encounter Care Teams Outdoor Pursuits Instructor Relationship Specialty Start Date End Date Shereen Latham MD [address] [place] [address] PCP - General Family Medicine 11/02/18 Nupur Bullock, PharmD [address] [place] [address] Pharmacist Internal Medicine 08/09/24 Pedro Benitezie [facility] [address] [place] [address] Pulmonary Disease 09/27/24 Nirali Madrid OD [address] [place] [address] Optometry 10/27/24 Li Grande MD [address] [place] [address] Hematology and Oncology 10/27/24 Anselmo Gates MD 10 [facility] [address] [place] [address] Orthopaedic Surgery 10/27/24 Margaret Holman 11 [facility] [address]rd [place] [address] Cardiology 10/27/24 Herberth Stokes MD 11 [facility] [address] [place] [address] Gastroenterology 10/27/24 Hilton Palacios MD 15 [facility], [address] [place] [address] Neurology 02/06/25 Aaron Pringle MD 11 [facility] [address] [place] [address] General Surgery 03/07/25 Pily Delaney RecheckerHospital Clinic Assistant 07/22/[address] [facility] 12/29/24 documented as of this encounter
--- OUTSIDE RECORDS SUMMARY | 2025-03-16 13:59 | XMS_ITS | Encounter Summary ---
Author Organization [employer] Address 75 [facility] 7 [place] [address] Care Team Providers Care Deicer Inspector Pneumatic Name Role Phone Shereen Latham MD Primary Care Provider [phone] Nupur Bullock PharmD Unavailable [phone] Sury Benitez Unavailable [phone] Nirali Madrid OD Unavailable Li Grande MD Unavailable [phone] Anselmo Gates MD Unavailable Margaret Holman Unavailable Herberth Stokes MD Unavailable [phone] Hilton Palacios MD Unavailable Aaron Pringle MD Unavailable [phone] Encounter Details Date Type Department Care Team (Late st Contact Info) Description 05/02/[address] [facility] [address] [place], [place] [phone] Shereen Latham MD 230 [place], [place] [phone] Gout, unspecified cause, unspecified chronicity, unspecified site [...] Description 03/29/2025 2:00 PM EDT Office Visit [facility] 230 [place] [address] Jenny Gordon 230 [place] [address] 04/25/2025 2:30 PM EDT Medication Management [facility] [address] [place] [address] Nupur Bullock PharmD 230 [place] [address] 04/26/2025 9:30 AM EDT Office Visit [facility] [address] [place] [address] Shereen Latham MD 230 [place] [address] documented as of this encounter Visit Diagnoses Diagnosis Gout, unspecified cause, unspecified chronicity, unspecified site- Primary documented in this encounter Additional Health Concerns Assessment Noted Time PHQ-9 Depression Total Score: 23 024 1:45 PM EDT documented as of this encounter Care Teams Deicer Inspector Pneumatic Relationship Specialty Start Date End Date Shereen Latham MD 230 [place] [address] PCP - General Family Medicine 11/02/18 Nupur Bullock PharmD [address] [place] [address] Pharmacist Internal Medicine 08/09/24 Sury Benitez [address] [place] [address] [address] [place] [address] Pulmonary Disease 09/27/24 Nirali Madrid OD 267 [place] [address] Optometry 10/27/24 Li Grande MD [address] [place] [address] Hematology and Oncology 10/27/24 Anselmo Gates MD [address] [place] [address] Orthopaedic Surgery 10/27/24 Margaret Holman [address] 3rd [place] [address] Cardiology 10/27/24 Herberth Stokes MD [address] [facility] [address] 3rd [place] [address] Gastroenterology 10/27/24 Hilton Palacios MD 15 [facility], [address] [place] [address] Neurology 02/06/25 Aaron Pringle MD [address] [facility] [address] [place] [address] General Surgery 03/07/25 Pily Delaney Business Intelligence ManagerTravel Specialist 07/22/24 Elie BRASHER [facility] 12/29/24 documented as of this encounter
--- OUTSIDE RECORDS SUMMARY | 2025-03-16 13:59 | XMS_ITS | Encounter Summary ---
Author Organization [employer] Address 75 [facility] 7 [place] [address] Care Team Providers Care Insecticide Mixer Name Role Phone Shereen Latham MD Primary Care Provider [phone] Nupur Bullock PharmD Unavailable Sury Benitez Unavailable [phone] Nirali Madrid OD Unavailable Li Grande MD Unavailable [phone] Anselmo Gates MD Unavailable Margaret Holman Unavailable Herberth Stokes MD Unavailable [phone] Hilton Palacios MD Unavailable [phone] Aaron Pringle MD Unavailable [phone] Reason for Visit * Reason Onset Date Comments Medication Question 07/05/2024 Encounter Details Date Type Department Care Team (Late st Contact Info) Description 07/05/2024 Telephone [facility] [address] [place] [address] Shereen Latham MD 230 [place], [place] [phone] Medication Question Social History Tobacco Use Types [...] is no medication interaction. Contact pt at [phone] documented in this encounter Plan of Treatment Upcoming Encounters Date Type Department Care Team (Late st Contact Info) Description 03/29/2025 2:00 PM EDT Office Visit [facility] [address] [place] [address] Jenny Gordon [address] [place] [address] 04/25/2025 2:30 PM EDT Medication Management [facility] [address] [place] [address] Nupur Bulolck, PharmD 230 [place] [address] 04/26/2025 9:30 AM EDT Office Visit [facility] [address] [place] [address] Shereen Latham MD 230 [place] [address] documented as of this encounter Visit Diagnoses Diagnosis Pain Generalized pain documented in this encounter Additional Health Concerns Assessment Noted Time PHQ-9 Depression Total Score: 13 024 4:53 PM EDT documented as of this encounter Care Teams Insecticide Mixer Relationship Specialty Start Date End Date Shereen Latham MD 230 [place] [address] PCP - General Family Medicine 11/02/18 Nupur Bullock, Pushpa [address] [place] [address] Pharmacist Internal Medicine 08/09/24 Sury Benitez [address] [place] [address] [address] [place] [address] Pulmonary Disease 09/27/24 Nirali Madrid OD 267 [place] [address] Optometry 10/27/24 Li Grande MD [address] [place] [address] Hematology and Oncology 10/27/24 Anselmo Gates MD [address] [place] [address] Orthopaedic Surgery 10/27/24 Margaret Holman 11 [facility] 3rd [place] [address] Cardiology 10/27/24 Herberth Stokes MD [address] [place] [address] Gastroenterology 10/27/24 Hilton Palacios MD 15 [facility], [address] [place] [address] Neurology 02/06/25 Aaron Pringle MD 11 [facility] 3rd [place] [address] General Surgery 03/07/25 Pily Delaney Hog CounterJacquard Loom Card Changer 07/22/24 Elie BRASHER [facility] 12/29/24 documented as of this encounter
--- OUTSIDE RECORDS SUMMARY | 2025-03-16 13:59 | XMS_ITS | Encounter Summary ---
Author Organization [email or web address] Address 75 [facility] 7 [place] [address] Care Team Providers Care Mold Closer Helper Name Role Phone Shereen Latham MD Primary Care Provider [phone] Nupur Bullock PharmD Unavailable Sury Benitez Unavailable [phone] Nirali Madrid OD Unavailable Li Grande MD Unavailable [phone] Anselmo Gates MD Unavailable Margaret Holman Unavailable Herberth Stokes MD Unavailable [phone] Hilton Palacios MD Unavailable [phone] Aaron Pringle MD Unavailable [phone] Reason for Visit * Reason Onset Date Comments Nurse Triage 02/13/2025 Encounter Details Date Type Department Care Team (Late st Contact Info) Description 02/13/2025 Telephone [facility] [address] [place], [place] [phone] Shereen Latham MD 230 [place], [place] [phone] Nurse Triage Social History Tobacco Use Types [...] Description 03/29/2025 2:00 PM EDT Office Visit [facility] [address] [place] [address] Jeramie Gordonaris [address] [place] [address] 04/25/2025 2:30 PM EDT Medication Management [facility] [address] [place] [address] Nupur Bullock, CharleneD 230 [place] [address] 04/26/2025 9:30 AM EDT Office Visit [facility] [address] [place] [address] Shereen Latham MD 230 [place] [address] documented as of this encounter Visit Diagnoses Not on filedocumented in this encounter Additional Health Concerns Assessment Noted Time PHQ-9 Depression Total Score: 22 025 10:17 AM EST documented as of this encounter Care Teams Mold Closer Helper Relationship Specialty Start Date End Date Shereen Latham MD 230 [place] [address] PCP - General Family Medicine 11/02/18 Nupur Bullock PharmD [address] [place] [address] Pharmacist Internal Medicine 08/09/24 Sury Benitez [address] [place] [address] [facility] 103 [place] [address] Pulmonary Disease 09/27/24 Nirali Madrid OD [address] [place] [address] Optometry 10/27/24 Li Grande MD [address] [place] [address] Hematology and Oncology 10/27/24 Anselmo Gates MD [address] [facility] 203 [place] [address] Orthopaedic Surgery 10/27/24 Margaret Holman 11 [facility] 3rd [place] [address] Cardiology 10/27/24 Herberth Stokes MD 11 [facility] 3[address] [place] [address] Gastroenterology 10/27/24 Hilton Palacios MD [address] [place] [address] DR, [address] [place] [phone] Neurology 02/06/25 Aaron Pringle MD [address] [place] [address] Drive 3rd [place] [address] General Surgery 03/07/25 Pily Delaney Sawmill Production WorkerSystem Manager 07/22/24 Elie BRASHER [facility] 12/29/24 documented as of this encounter
--- OUTSIDE RECORDS SUMMARY | 2025-03-16 14:00 | XMS_ITS | Encounter Summary ---
Author Organization [employer] Address 75 [facility] 7 [place] [address] Care Team Providers Care Feed Research Technician Name Role Phone Shereen Latham MD Primary Care Provider [phone] Nupur Bullock PharmD Unavailable [phone] Sury Benitez Unavailable [phone] Nirali Madrid OD Unavailable [phone] Li Grande MD Unavailable [phone] Anselmo Gates MD Unavailable Margaret Holman Unavailable Herberth Stokes MD Unavailable [phone] Hilton Palacios MD Unavailable Aaron Pringle MD Unavailable [phone] Reason for Visit * Reason Onset Date Comments Results 03/15/2025 Interoffice Coordination 03/15/2025 Encounter Details Date Type Department Care Team (Late st Contact Info) Description 03/15/[address] [facility] 230 [place], [place] [phone] Keira Escobar, RN 230 [place], [place] [phone] Results; Interoffice Coordination Social History Tobacco Use Types Packs/Day Years [...] Telephone Encounter - Keira Escobar RN - 03/15/2025 8:52 AM EDT Received call from Dr Toussaint reporting breast biopsy results. Requesting I see if anything is needed. Telephone call placed to [facility] General Surgery. Alysia reported that pt has follow up with Dr Pringle tomorrow 03/16 @3PM to discuss results and next steps in POC. She put me on a brief hold to go speak with the Dr. Came back and told me that they will order the MRI at that appt. No action is needed from our office. documented in this encounter Plan of Treatment Upcoming Encounters Date Type Department Care Team (Late st Contact Info) Description 03/29/2025 2:00 PM EDT Office Visit [facility] [address] [place] [address] Heidi, Jenny [address] [place] [address] 04/25/2025 2:30 PM EDT Medication Management [facility] [address] [place] [address] Nupur Bullock PharmD [address] [place] [address] 04/26/2025 9:30 AM EDT Office Visit [facility] [address] [place] [address] Shereen Latham MD [address] [place] [address] documented as of this encounter Visit Diagnoses Not on filedocumented in this encounter Additional Health Concerns Assessment Noted Time PHQ-9 Depression Total Score: 22 12/29/ 025 10:17 AM EST documented as of this encounter Care Teams Feed Research Technician Relationship Specialty Start Date End Date Shereen Latham MD [address] [place] [address] PCP - General Family Medicine 11/02/18 Nupur Bullock PharmD [address] [place] [address] Pharmacist Internal Medicine 08/09/24 Ana MaríacassidycharleneSury 10 [facility] [address] [place] [address] Pulmonary Disease 09/27/24 Nirali Madrid OD [address] [place] [address] Optometry 10/27/24 Li Grande MD [address] [place] [address] Hematology and Oncology 10/27/24 Anselmo Gates MD 10 [facility] [address] [place] [address] Orthopaedic Surgery 10/27/24 Margaret Holman 11 [facility] 3rd [place] [address] Cardiology 10/27/24 Herberth Stokes MD 11 [facility] [address] [place] [address] Gastroenterology 10/27/24 Hilton Palacios MD 15 [facility], [address] [place] [address] Neurology 02/06/25 Aaron Pringle MD 11 [facility] [address] [place] [address] General Surgery 03/07/25 Pily Delaney Press Operator HelperSupervisor Pumping Station 07/22/24 Elie Vicky [facility] 12/29/24 documented as of this encounter
--- OUTSIDE RECORDS SUMMARY | 2025-03-16 14:00 | XMS_ITS | Encounter Summary ---
Author Organization [employer] Address 75 [facility] 7 [place] [address] Care Team Providers Care Sergeant Missile Crewman Name Role Phone Shereen Latham MD Primary Care Provider [phone] Nupur Bullock PharmD Unavailable Sury Benitez Unavailable [phone] Nirali Madrid OD Unavailable Li Graned MD Unavailable [phone] Anselmo Gates MD Unavailable Margaret Holman Unavailable Herberth Stokes MD Unavailable [phone] Hilton Palacios MD Unavailable Aaron Pringle MD Unavailable [phone] Reason for Visit * Reason Onset Date Comments Nurse Triage 01/25/2024 Referral 01/25/2024 Encounter Details Date Type Department Care Team (Late st Contact Info) Description 01/25/2024 Telephone [facility] [address] [place], [place] [phone] Shereen Latham MD 230 [place], [place] [phone] Nurse Triage; Referral Social History Tobacco Use [...] Answer Date of Assessment Author Patient Health Questionnaire-2 Score 4 01/01 1:55 PM EDT Ruma Lawrence * Over the last 2 weeks, how often have you been bothered by any of the following problems? Question Answer Date of Assessment Author Feeling nervous, anxious, or on edge 3 01/01 1:56 PM EDT Ruma Lawrence Not being able to stop or co ntrol worrying 3 01/28/2024 1:56 PM EDT Ruma Lawrence Worrying too much about different things 3 01/28/2024 1:56 PM EDT Ruma Lawrence Trouble relaxing 2 01/28/2024 1:56 PM EDT Ruma Bean Being so restless that it is hard to sit still 3 01/28/2024 1:56 PM EDT Ruma Lawrence Becoming easily annoyed or irritable 3 01/01 1:56 PM EDT Ruma Lawrence Feeling afraid as if somethi ng awful might happen 3 01/28/2024 1:56 PM EDT Ruma Lawrence STEFANY-7 Total Score 20 01/28/2024 1:56 PM EDT Ruma Lawrence * Over the past 2 weeks, how often have you been bothered by any of the following problems? Question Answer Date of Assessment Author Little interest or pleasure in doing things More than half the days 01/28/2024 1:55 PM EDT Ruma Lawrence Feeling down, depressed, or hopeless More than half the days 01/28/2024 1:55 PM EDT Ruma Lawrence Trouble falling or staying asleep, or sleeping too much Nearly every day 01/28/2024 1:55 PM EDT Ruma Lawrence Feeling tired or having little energy Nearly every day 01/28/2024 1:55 PM EDT Ruma Lawrence Poor appetite or overeating Nearly every day 1:55 PM EDT Ruma Lawrence Feeling bad about yourself - or that you are a failure or have let yourself or your family down Not at all 01/28/2024 1:55 PM EDT Ruma Lawrence Trouble concentrating on things, such as reading the newspaper or watching television Nearly every day 01/28/2024 1:55 PM EDT Ruma Lawrence Moving or speaking so slowly that other people could have noticed? Or the opposite - being so fidgety or restless that you have been moving around a lot more than usual. More than half the days 01/28/2024 1:55 PM EDT Ruma Lawrence Thoughts that you would be better off or hurting yourself in some way Not at all 01/28/2024 1:55 PM EDT Ruma Lawrence Patient Health Questionnaire-9 Score 18 01/28/2024 1:55 PM EDT Ruma Lawrence documented as of this encounter Miscellaneous Notes [...] Per pt missed Podiatry appt with Dr. Vernon shea in December. Pt advised of disposition, declines sick appt offered for today. Pt adivsed to seek WIC , UC or ER as needs to be seen due to worsening pain and inability to bear weight. Pt states will try WIC. Reviewed operating hours and thatwait times vary. Pt wants to be referred to [address] [place] [address]. Adivsed will send to team to review [...] Description 03/29/2025 2:00 PM EDT Office Visit [facility] [address] [place] [address] Jeramie Gordonaris [address] [place] [address] 04/25/2025 2:30 PM EDT Medication Management [address] [address] Nupur Bullock, Pushpa [address] [place] [address] 04/26/2025 9:30 AM EDT Office Visit [address] [address] Shereen Latham MD [address] [place] [address] documented as of this encounter Visit Diagnoses Not on filedocumented in this encounter Additional Health Concerns Assessment Noted Time PHQ-9 Depression Total Score: 21 023 10:42 AM EST documented as of this encounter Care Teams Sergeant Missile Crewman Relationship Specialty Start Date End Date Shereen Latham MD [address] [place] [address] PCP - General Family Medicine 11/02/18 Nupur Bullock, Pushpa [address] [place] [address] Pharmacist Internal Medicine 08/09/24 Sury Benitez [address] [place] [address] Pulmonary Disease 09/27/24 Nirali Madrid OD [address] [place] [address] Optometry 10/27/24 Li Grande MD [address] [place] [address] Hematology and Oncology 10/27/24 Anselmo Gates MD [address] [place] [address] Orthopaedic Surgery 10/27/24 Margaret Holman [address] 3rd [place] [address] Cardiology 10/27/24 Herberth Stokes MD [address] 3rd [place] [address] Gastroenterology 10/27/24 Hilton Palacios MD [address] [facility] [facility] [address], [address] [place] [address] Neurology 02/06/25 Aaron Pringle MD [address] 3rd [place] [address] General Surgery 03/07/25 Pily Delaney Alley CleanerPresiding Steward 07/22/24 Elie Vicky [facility] 12/29/24 documented as of this encounter
--- OUTSIDE RECORDS SUMMARY | 2025-03-16 14:00 | XMS_ITS | Encounter Summary ---
Author Organization [employer] Address [address] [facility] [address] [place] [address] Care Team Providers Care Panelbeater Name Role Phone Shereen Latham MD Primary Care Provider [phone] Nupur Bullock PharmD Unavailable [phone] Sury Benitez Unavailable [phone] Nirali Madrid OD Unavailable Li Grande MD Unavailable [phone] Anselmo Gates MD Unavailable Margaret Holman Unavailable Herberth Stokes MD Unavailable [phone] Hilton Palacios MD Unavailable Aaron Pringle MD Unavailable Encounter Details Date Type Department Care Team (Latest Contact Info) Description 07/06/2019 Abstract [facility] CONVERSIONS Dental, Provider, DDS Social History [...] Description 03/29/2025 2:00 PM EDT Office Visit [facility] ADULT DENTAL [address] [place] [phone] Jeramie Gordonaris [address] [place] [address] 04/25/2025 2:30 PM EDT Medication Management [facility] MEDICINE [address] [place] [phone] Nupur Bullock, PharmD [address] [place] [address] 04/26/2025 9:30 AM EDT Office Visit [facility] MEDICINE [address] [place] [phone] Shereen Latham MD [address] [place] [phone] documented as of this encounter Visit Diagnoses Not on filedocumented in this encounter Care Teams Panelbeater Relationship Specialty Start Date End Date Shereen Latham MD [address] [place] [phone] PCP - General Family Medicine 11/02/18 Nupur Bullock, CharleneD [address] [place] [phone] Pharmacist Internal Medicine 08/09/24 Sury Benitez [address] [place] [address] Pulmonary Disease 09/27/24 Nirali Madrid OD [address] [place] [address] Optometry 10/27/24 Li Grande MD [address] [place] [phone] Hematology and Oncology 10/27/24 Anselmo Gates MD [address] [place] [address] Orthopaedic Surgery 10/27/24 Margaret Holman [address] [place] [address] Cardiology 10/27/24 Herberth Stokes MD [address] [place] [address] Gastroenterology 10/27/24 Hilton Palacios MD [address] [place] [address] Neurology 02/06/25 Aaron Pringle MD [address] [place] [address] General Surgery 03/07/25 Pily Delaney [employer] Project ManagerContour Band Saw Operator Vertical 07/22/24 Elie Vicky [facility] 12/29/24 documented as of this encounter
--- OUTSIDE RECORDS SUMMARY | 2025-03-16 14:00 | XMS_ITS | Clinical Summary ---
Author Organization [employer] Address [address] [place] [address] 7 [place] [address] Care Team Providers Care Lawn Mower Mechanic Name Role Phone Shereen Latham MD Primary Care Provider [phone] Nupur Bullock PharmD Unavailable Sury Benitez Unavailable [phone] JuliusNirali castellanos OD Unavailable Li Grande MD Unavailable [phone] Anselmo Gates MD Unavailable Margaret Holman Unavailable Herberth Stokes MD Unavailable [phone] Hilton Palacios MD Unavailable Aaron Pringle MD Unavailable [phone] Allergies Active Allergy Reactions Criticality Noted Date [...] at bedtime. 01/21/20 25 Active sodium chloride (Iosco) 0.65 % nasal sprayIndication s:Nasal congestion Administer [...] 11:54 AM EDT): -per note from Margaret Holman 02/27/25 EKG [...] 04/21/24 with uric acid 7.9 -Seen by cuprous chloride helper Dr. Bernstein 05/11/24 or evaluation of acute gout affecting left foot. -Pt admitted 07/25/24-07/2524 for swelling, pain, and warmth in the right knee. Patient had a low fever (100.3 F) and elevated WBC (19559 cells/uL), CRP, and ESR. Orthopedic surgery consulted [...] reach serum uric acid level <6 mg/dL(2020 [place] [employer] guideline for the management [...] 04/21/24 with uric acid 7.9 -Seen by cuprous chloride helper Dr. Bernstein 05/11/24 or evaluation of acute gout affecting left foot. -Pt admitted 07/25/24-07/2524 for swelling, pain, and warmth in the right knee. Patient had a low fever (100.3 F) and elevated WBC (61502 cells/uL), CRP, and ESR. Orthopedic surgery consulted [...] reach serum uric acid level <6 mg/dL(2020 [place] [employer] guideline for the management [...] reach serum uric acid level <6 mg/dL(2020 [place] [employer] guideline for the management [...] ON 08/24/2024 9:45 AM BY JOLIE PA [facility] (07/25/2024 - 07/27/2024) Patient presented with swelling, pain, and warmth in the right knee. Patient had a low fever (100.3 F) and elevated WBC (32855 cells/uL), CRP, and ESR. Orthopedic surgery consulted [...] by mouth once daily for 5 days. [facility] ED (08/07/2024) Patient presented for right knee [...] of breath) 06/29/2024 Overview (12/29/2024): -Followed by [facility] with [...] Plan (12/29/2024 11:03 AM EST): -Followed by [facility] with [...] if needed. -pt reports she saw her flex o writer operator and is continuing management with them. . Assessment & Plan (07/13/2024 2:15 PM EDT): -referred to pulmonology 06/29/24 -Pt reports she has appt to see flex o writer operator 08/01/24 Assessment & Plan (06/29/2024 4:49 [...] with reduced EF during recent admission to [facility] 06/22/24. Pt was volume overloaded therefore [...] with reduced EF during recent admission to [facility] 06/22/24. Pt was volume overloaded therefore [...] Complex care coordination 01/11/2024 Overview (01/11/2024): -Has THREAD SINGER services with [facility] -She is applying [facility] 01/11/2024 -In our C3 complex care management program -referred to [facility] on 01/04/2024 -Messaged sent to C3 gericare aide teacher for assistance in care visits Assessment & Plan (12/29/2024 10:21 AM EST): -Has THREAD SINGER services with [facility] -She is applying [facility] 01/11/2024 -In our C3 complex care management program -referred to [facility] on 01/04/2024 -Messaged sent to C3 gericare aide teacher for assistance in care visits Assessment & Plan (08/24/2024 9:19 AM EDT): -Has THREAD SINGER services with [facility] -Leonora is applying [facility] 01/11/2024 -In our complex care management program -referred to [facility] on 01/04/2024 -Messaged sent to C3 gericare aide teacher for assistance in care visits Assessment & Plan (06/29/2024 4:06 PM EDT): -Has THREAD SINGER services with [facility] -Leonora is applying [facility] 01/11/2024 -In our complex care management program -referred to [facility] on 01/04/2024 -Messaged sent to C3 gericare aide teacher for assistance in care visits Assessment & Plan (01/11/2024 9:30 AM EDT): -Has THREAD SINGER services with [facility] -Leonora is applying [facility] 01/11/2024 -In our complex care management program -referred to [facility] on 01/04/2024 -Messaged sent to C3 gericare aide teacher for assistance in care visits Generalized anxiety [...] Pain Management team and will reconnect with [facility]. Information given to patient. PLAN: (check all that apply) Behavioral Health Integration Plan Self- referred to [facility] per patient's preference. Assessment & Plan (11/24/2023 11:53 AM EST): STEFANY-7 Total Score: 21 (10/22/2023 10:44 AM) New/Additional Services needed Off-site services for , Behavioral Health Integration Plan External OP therapy referral , Patient Self Plan Patient to utilize skills provided in intervention , Patient to reach out to [facility] team as needed, and Patient [...] for transfusion - Iron infusions ordered by It Program Engagement Director DR. Grande - She recieved two [...] for transfusion - Iron infusions ordered by It Program Engagement Director DR. Grande - She recieved two [...] for transfusion - Iron infusions ordered by It Program Engagement Director DR. Grande - She recieved two [...] for transfusion - Iron infusions ordered by It Program Engagement Director DR. Grande - She recieved two [...] lynnelulu back by: Janett Ortega Person calling: AvanzitA Date:06/16/24 Time: 1218 Saw CDTM on 08/16/24 [...] value for test(s): MAGS Results called to andread back by: Janett Ortega Person calling: AvanzitA Date:06/16/24 Time: 1218 Assessment & Plan (07/29/2023 4:34 PM EDT): Received magnesium IV in ER -Dose increased to TID - Recheck in 2 weeks Other specified health status 07/20/2023 Overview (07/11/2024): -next physical exam due after 06/29/25 -eye care facilitated by [facility] -dental home is [facility] -health care proxy filed 06/29/24 Assessment & Plan (06/29/2024 4:03 PM EDT): -next physical exam due after 06/29/25 -eye care facilitated by [facility] -dental home is [facility] -health care proxy given and filed [...] on scene within 10 minutes, transfer completed [facility] ER called with expect Chronic GERD 05/26/2023 [...] had ultrasound sound for abdominal pain at [facility] revealing diffusely echogenic parenchyma with focal [...] had ultrasound sound for abdominal pain at [facility] revealing diffusely echogenic parenchyma with focal [...] had ultrasound sound for abdominal pain at [facility] revealing diffusely echogenic parenchyma with focal [...] had ultrasound sound for abdominal pain at [facility] revealing diffusely echogenic parenchyma with focal [...] had ultrasound sound for abdominal pain at [facility] revealing diffusely echogenic parenchyma with focal [...] had ultrasound sound for abdominal pain at [facility]. Ultrasound showed diffusely echogenic parenchyma with focal [...] sxs, will send to ED to [facility], EMS is called and she left accompanied [...] [facility] but has [...] been referred [facility] for [facility] and Recovery but has [...] been referred to [facility] for [facility] and Recovery but has [...] received phenobarb improved her symptoms, patient declined director life insurance help to place her in rehab, is [...] received phenobarb improved her symptoms, patient declined director life insurance help to place her in rehab, is [...] History of right breast cancer 12/12/2021 Overview (03/07/2025): 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 -S/p RIGHT mastectomy with sentinel node bx by Dr. Prescott [facility] -Adriamycin/Cytoxan based chemotherapy started Oct, [...] scheduled. BI-RADS BI-RADS 4 - Suspicious finding -biopsy with Dr. 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 [...] type, invasive tumor 2.2 cm ER positive, UT positive, HER-2/RON negative, two sentinel nodes negative. [...] type, invasive tumor 2.2 cm ER positive, UT positive, HER-2/RON negative, two sentinel nodes negative. -S/p RIGHT mastectomy with sentinel node bx by Dr. Prescott [facility] -Adriamycin/Cytoxan based chemotherapy started Oct, [...] type, invasive tumor 2.2 cm ER positive, UT positive, HER-2/RON negative, two sentinel nodes negative. -S/p RIGHT mastectomy with sentinel node bx by Dr. Prescott [facility] -Adriamycin/Cytoxan based chemotherapy started Oct, [...] type, invasive tumor 2.2 cm ER positive, UT positive, HER-2/RON negative, two sentinel nodes negative. -S/p RIGHT mastectomy with sentinel node bx by Dr. Prescott [facility] -Adriamycin/Cytoxan based chemotherapy started Oct, [...] type, invasive tumor 2.2 cm ER positive, UT positive, HER-2/RON negative, two sentinel nodes negative. -S/p RIGHT mastectomy with sentinel node bx by Dr. Prescott [facility] -Adriamycin/Cytoxan based chemotherapy started Oct, [...] type, invasive tumor 2.2 cm ER positive, UT positive, HER-2/RON negative, two sentinel nodes negative. [...] type, invasive tumor 2.2 cm ER positive, UT positive, HER-2/RON negative, two sentinel nodes negative. [...] type, invasive tumor 2.2 cm ER positive, UT positive, HER-2/RON negative, two sentinel nodes negative. -S/p RIGHT mastectomy with sentinel node bx by Dr. Prescott [facility] -Adriamycin/Cytoxan based chemotherapy started Oct, [...] type, invasive tumor 2.2 cm ER positive, UT positive, HER-2/RON negative, two sentinel nodes negative. [...] Overview (06/28/2024): Lab Results Component Value Date [id number] 58.3 06/16/2024 [id number] 106.4 01/04/2024 [id number] 76.8 09/22/2023 Assessment & Plan (06/29/2024 3:39 PM EDT): Lab Results Component Value Date [id number] 58.3 06/16/2024 [id number] 106.4 01/04/2024 [id number] 76.8 09/22/2023 Assessment & Plan (12/14/2023 12:09 PM EST): Lab Results Component Value Date [id number] 76.8 09/22/2023 -Labs ordered for further evaluation: Vitmain D, 25-hydroxy, Total, Immunoassay. 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 Per Dr. Krish Loomis's note from [facility] [facility], pt was due for repeat colposcopy in [...] Per Dr. Krish Loomis's note from [facility] [facility], pt was due for repeat colposcopy in [...] features 04/19/2014 Overview (12/29/2024): -has therapist in [place]. Has appt. 12/30/24. Had intake for psychiatry [...] Health Integration Plan Internal Follow up with [facility] Patient Self Plan Patient to utilize skills provided in intervention , Patient to reach out to [facility] team as needed, Patient to reach out to [facility] as needed, and will contact [facility] Intake number to connect with senior care OP services, and psychiatrist. Rule Out [...] as pharmacomtherapy, [facility] smoking cessation group, and [facility] pharmacy smoking cessation clinic Discussed USPSTF [...] as pharmacomtherapy, [facility] smoking cessation group, and [facility] pharmacy smoking cessation clinic Discussed USPSTF [...] as pharmacomtherapy, [facility] smoking cessation group, and [facility] pharmacy smoking cessation clinic Discussed USPSTF [...] as pharmacomtherapy, [facility] smoking cessation group, and [facility] pharmacy smoking cessation clinic Discussed USPSTF [...] as pharmacomtherapy, [facility] smoking cessation group, and [facility] pharmacy smoking cessation clinic Discussed USPSTF [...] flare 05/11/2024 12/29/2024 Overview (07/13/2024): Seen by cuprous chloride helper Dr. Bernstein 05/11/24 or evaluation of acute [...] Plan (07/13/2024 2:21 PM EDT): Seen by cuprous chloride helper Dr. Bernstein 05/11/24 or evaluation of acute [...] EDT): Patient requesting a Physical for her THREAD SINGER hours to be re-instated. On exam today, her vitals are stable and her exam seems unchanged from previous one. Work up in progress for her c/o bilateral foot pain Hospital discharge follow-up 06/18/2023 07/20/2023 Assessment & Plan (07/14/2023 10:23 AM EDT): Patient here for a HDF. She was admitted to [facility] from 06/05-06/08 . She presented with concerns [...] Hyperaldosteronism 11/16/2022 3 Overview (11/16/2022): Seen by [facility] 04/03/2022. Initially seen 12/2021 for hyperaldosteronism. Labs [facility] 10/2021 aldosterone 8, plasma renin 0.11, aldosterone/renin 72.7. She was likely on spironolactone and lisinopril at time of labs. Advise no spironolactone for 6 weeks and recheck renin aldosterone levels with renal panel and magnesium in membership sales advisor. Assessment & Plan (11/16/2022 10:55 AM EST): Seen by [facility] 04/03/2022. Initially seen 12/2021 for hyperaldosteronism. Labs [facility] 10/2021 aldosterone 8, plasma renin 0.11, aldosterone/renin 72.7. She was likely on spironolactone and lisinopril at time of labs. Advise no spironolactone for 6 weeks and recheck renin aldosterone levels with renal panel and magnesium in membership sales advisor. Anxiety 04/19/2014 01/28/2024 Encounters Date Type Department Care Team Description 03/15/2025 Telephone [facility] [address] [place] [address] Keira Escobar RN Results; Interoffice Coordination 03/08/2025 Orders Only [facility] External Provider, [facility] 03/02/2025 11:15 AM EDT Office [address] [place] [address] Shereen Latham MD Fibromyalgia (Primary Dx); Nasal congestion; History of right breast cancer; Atrial tachycardia ([facility]); Benign essential hypertension 03/02/2025 Telephone [facility] [address] [facility] [place] [address] Shereen Latham MD Lab Orders 03/02/2025 Travel 03/01/2025 Orders Only [facility] [address] [facility] [place] [address] Shereen Latham MD Iron deficiency anemia, unspecified iron deficiency anemia type (Primary Dx); Alcohol use disorder, moderate, dependence (CMS/HCC) 03/01/2025 Orders Only [facility] [address] [facility] [place] [address] Shereen Latham MD Atrial tachycardia ([facility]/HCC) (Primary Dx) 02/24/2025 Telephone [facility] [address] [facility] [place] [address] Shereen Latham MD Lab Orders 02/23/2025 Telephone [facility] [address] [facility] [place] [address] Shereen Latham MD chartprep 02/15/2025 Refill [facility] [address] [place] [address] Shereen Latham MD Pain 02/13/2025 Telephone [facility] [place] [address] Shereen Latham MD Nurse Triage 02/09/2025 Orders Only [facility] External Provider, [facility] Heart failure with preserved ejection fraction, unspecified HF chronicity (CMS/HCC) (Primary Dx) 01/27/2025 Orders Only [address] [address] Shereen Latham MD History of right breast cancer (Primary Dx) 01/27/2025 Orders Only [address] [address] Shereen Latham MD Hypomagnesemia (Primary Dx) 01/24/2025 1:00 PM EDT Clinical Support [facility] [address] History of chronic CHF (Primary Dx) 01/24/[address] [address] Shereen Latham MD Medication Question 01/24/2025 Travel 01/19/2025 Orders Only [address] [address] Stacey Khan MD Women's annual routine gynecological examination (Primary Dx) 01/19/2025 Orders Only [address] [address] Stacey Khan MD Breast pain, left (Primary Dx); History of right breast cancer 01/17/2025 3:00 PM EDT Nutrition [facility] [address] History of chronic CHF 01/17/2025 Refill [facility] [address] [place] [address] Shereen Latham MD Pain 01/17/2025 Travel 01/17/2025 Refill [facility] [address] [place] [address] Mayda Rush MD Pain 01/16/2025 Telephone [facility] [address] [place] [address] Shereen Latham MD Appointment Request 01/13/2025 Population Health Risk Score [facility] (C3) Department [address] [id number] Provider, Population Health Generic 01/12/2025 Refill [facility] [address] [place] [address] Shereen Latham MD Benign essential hypertension 01/09/2025 Refill [facility] [address] [place] [address] Shereen Latham MD Gastroesophageal reflux disease, unspecified whether esophagitis present; Vitamin D deficiency; Nasal congestion 01/03/2025 Telephone [facility] [address] [place] [address] Shereen Latham MD Referral 12/29/2024 10:30 AM EST Office Visit [facility] [address] [place] [address] Shereen Latham MD History of right breast [...] coordination; Tubular adenoma of colon 12/29/2024 Telephone [facility] [address] [place] [address] Shereen Latham MD Results 12/29/2024 Orders Only [facility] [address] [place] [address] Shereen Latham MD Gout, unspecified cause, unspecified chronicity, unspecified site 12/29/2024 Orders Only GENERIC EXTERNAL DATA DEPARTMENT Provider, Generic External Data 12/29/2024 Travel 12/22/2024 Telephone [facility] [address] [place] [address] Shereen Latham MD Durable Medical Equipment; chartprep 12/22/2024 Telephone [facility] [address] [place] [address] Shereen Latham MD Nurse Triage 12/21/2024 3:30 PM EST Telemedicine [facility] [address] [place] [address] Nupur Bullock, CharleneD Preventative health care (Primary Dx) 12/21/2024 Travel 12/21/2024 Refill [facility] [address] [place] [address] Shereen Latham MD Pain 12/20/2024 Orders Only [facility] External Provider, [facility] from Last 3 Months Immunizations Immunization Administration Dates Next Due DTP 08/24/1978,06/29/1978 Hep [...] Q2 Not on file 12/29/2024 Comments No Intention Date Recorded No desire to become (finding) 0 12/29/2024 Sex and Gender Information Value Date Recorded [...] Description 03/29/2025 2:00 PM EDT Office Visit [facility] [address] [place] [address] Jenny Gordon [address] [place] [address] 04/25/2025 2:30 PM EDT Medication Management [facility] [address] [place] [address] Nupur Bullock, PharmD [address] [place] [address] 04/26/2025 9:30 AM EDT Office Visit [facility] [address] [place] [address] Shereen Latham MD [address] [place] [address] Health Maintenance Due Date Last Done Comments [...] Procedure Name Priority Date/Time Associated Diagnosis Comments HEMATOXYLIN AND EOSIN STAIN Routine 03/08/2025 10:58 AM EDT BI STEREOTACTIC GUIDED BREAST LOCALIZATION AND BIOPSY LEFT Routine 03/08/2025 10:30 AM EDT URIC ACID Routine 03/02/2025 9:00 AM EDT [...] VIEWS RIGHT Routine 12/20/2024 7:45 AM EST PROPHYLAXIS - ADULT Routine 09/28/2024 [...] Recently Relevant to Health Maintenance Results * Hematoxylin and Eosin Stain (03/08/2025 10:58 AM EDT) 03/08/2025 10:5 8 AM EDT 03/08/2025 11:38 AM EDT [facility] - 03/10/2025 1:22 PM EDT ----- ------- Name: Azra Cast ? Age/Sex: 49/F ? : 1975 Unit#: [id number] ?? Attend Dr: Aaron Pringle MD ?Re03/08/25 ?Status: DEP REF ? Location: HO.MAMMO ?Disch: ? ----- ------- SPEC : [id number] ? RECD: 03/08/25 ? STATUS: ??SOUT ? REQ NUM: [id number] ? MAYA: 03/08/25-1057 ? SUBM DR: Cara Rodriges DO ? ENTERED: ??03/08/25 ?SP TYPE: Surgical ? OTHR DR: Shereen Latham MD ?Aaron Pringle MD ORDERED: ??HE Stain/3, Gross Micro L4, ER, IHC, IHC ER/UT/Her2N, CK5-6 ? COMMENTS: As per the specimen requisition slip the specimen is ?collected at 1058 and placed in formalin at 1105. ? Diagnosis ?? Breast, left, stereotactic core biopsy: ?? -Minute focus of atypical ductal hyperplasia. ?? -Focal gynecomastia-like hyperplasia. ?? -Predominantly benign breast tissue and adipose. ?Clinical History Left breast stereotactic bx for asymmetry ?Microscopic Description Microscopic sections reviewed. ??The minute focus of atypical monotonous ductal epithelial cells show strong positive ER staining and negative CK 5/6. ??Controls stain appropriately. ? Material Received ?? Left breast stereotactic bx of asymmetry ? Gross Description Received in formalin labeled ?left stereotactic bx, left breast asymmetry in a mesh and metal specimen capture device are multiple irregular shards and cylindrical portions of salmeron-yellow lobular fibrofatty breast tissue aggregating 2.8 x 2.5 x 0.5 cm, submitted in toto in cassettes A1 and A2. Formalin-fixed paraffin-embedded tissue. Time tissue removed from patient:? 10:58 Time tissue placed in fixative:? 11:05 Duration of fixation:?6-24 ?hrs. CEDS This case was reviewed intradepartmentally. Special studies ordered and performed: ??Immunostains for CK5/6 and ER on A1. ? CONTINUED ON NEXT PAGE ----- ------- Name: Azra Cast ? Age/Sex: 49/F ? : 1975 Unit#: [id number] ?? Attend Dr: Aaron Pringle MD ?Re03/08/25 ?Status: DEP REF ? Location: HO.MAMMO ?Disch: ? ----- ------- SPEC : [id number] ? RECD: 03/08/25 ? STATUS: ??SOUT ? REQ NUM: [id number] ? MAYA: 03/08/25 ? SUBM DR: Cara Rodriges DO ? ENTERED: ??03/08/25 ?SP TYPE: Surgical ? OTHR DR: Shereen Latham MD ?Aaron Pringle MD ORDERED: ??HE Stain/3, Gross Micro L4, ER, IHC, IHC ER/UT/Her2N, CK5-6 ? COMMENTS: As per the specimen requisition slip the specimen is ?collected at 1058 and placed in formalin at 1105. Copies To: ?? Shereen Latham MD ?? [facility] ?? [address] ?? [place] [address] ?? [phone] ?? Aaron Pringle MD ?? [facility] Sur[facility] ?? [address] ?? [place] [address] ?? [phone] ?? Cara Rodriges DO ?? [address] ?? [place] [address] ?? [phone] ----- ------- Signed (signature on file) Nilam Merary 03/10/25 1322 ? ----- ------- ? END OF REPORT ? us Generic External Data Provider LAB BLOOD ORDERAB LES Final Result [facility] [address] [facility] [place] [address] [phone] * BI Sterotactic Guided Breast Localization and Biopsy Left (03/08/2025 10:30 AM EDT) Anatomical Region Laterality Modality Breast Left Mammography 03/08/2025 10:3 0 AM EDT Narrative 03/08/2025 11:57 AM EDT ? [place] [facility] ? [address] ?[place] [address] ?[phone] ? Mammography Report ? Signed with Addenda ? Patient: Cast,Azra ?MR#: [id number] ?? [id number] ? : 1975 ?Acct:[id number] ? Age/Sex: 49 / F ?ADM Date: 03/08/25 ? Loc: HO.MAMMO ? Attending Dr: Aaron Pringle MD ? Ordering Physician: Aaron Pringle MD ?Results: ? Date of Service: 03/08/25 ?Follow Up: ? Procedure(s): MM stereotactic biopsy LT ?? Accession Number(s): [id number] ? cc: Shereen Latham MD; Aaron Pringle MD ?ADDENDUM ? ADDENDUM #1 ? Left breast stereotactic core needle biopsy lateral asymmetry with ?? distortion: ?? Minute focus of atypical ductal hyperplasia. ?? Focal gynecomastia like hyperplasia ?? Predominantly benign breast tissue and adipose. ? Given that the original asymmetry was not fully biopsied and the clip ?? was 2.5 cm medial to the original area of asymmetry targeted recommend ?? breast MRI at this time for further evaluation. ? Recommend breast surgical consultation for excision and further ?? management of atypical ductal hyperplasia and given that adjacent ?? tissue is suspicious. ? Electronically signed by: ??Cara Rodriges DO ??03/13/2025 01:31 PM EDT ? Addendum Dictated By: ?Cara Rodriges, DO ? Addendum Signed By: ? <Electronically signed by Cara Rodriges, DO in OV> ? 03/13/25 1331 ?? Addendum Cosigned By: ? DD/ /26/1030 ? TD/TT: 03/08/2505/26/1115 ? EXAMINATION: ?? STEREOTACTICALLY-GUIDED LEFT BREAST BIOPSY ? CLINICAL INFORMATION: ?? New developing focal asymmetry with subtle architectural distortion in ?? the central outer left breast posterior depth no sonographic correlate ?? was seen before stereotactic core needle biopsy was recommended. ? COMPARISON: ?? Priors on PACS. ? INFORMED CONSENT: ?? After the details of the procedure, as well as the risks (including, ?? but not limited to, bleeding, hematoma formation, and infection), ?? benefits and alternatives (including doing nothing, short-interval ?? follow up, and surgery) to the procedure were explained to the patient ?? in detail and all of her questions were answered, informed written ?? consent was obtained. ? TECHNIQUE/FINDINGS: ?? A timeout was performed. The lesion intended for biopsy was identified ?? stereotactically and targeted. The skin of the left breast was then ?? cleansed with sterile solution. Using stereotactic guidance, aseptic ?? technique, and 1% lidocaine with and without epinephrine for local ?? anesthesia, a total of 9 cores were obtained through the targeted area ?? with a 9-gauge vacuum-assisted Eviva core biopsy device from a inferior ?? approach. ? At the completion of tissue sampling, a single top hat-shaped metallic ?? clip was deposited at the biopsy site. ? Adequate sampling was achieved. ? The postprocedure 2-view direct digital mammogram reveals the biopsy ?? clip to be located 2.6 cm medial to the original area of focal ?? asymmetry with distortion.. ? The patient tolerated the procedure well and, after assuring adequate ?? hemostasis, was discharged in good condition after reviewing postbiopsy ?? breast care instructions. Final pathology results are pending. ? MM/MM stereotactic biopsy LT ?? IMPRESSION: ?? 1. Uncomplicated stereotactically-guided core biopsy of the left ?? breast. The 2-view direct digital postprocedure mammogram demonstrates ?? the marker clip to be 2.6 cm medial to the original area of distortion ?? which was not targeted and not seen during targeting. Management for ?? this area will be pending pathology of the above biopsy. ? 2. Final pathology results are pending. A separate report with final ?? recommendations will be issued once these results are made available. ? Electronically signed by: ??Cara Rodriges DO ??03/08/2025 11:55 AM EDT ? Dictated By: ?Cara Rodriges DO ? Signed By: ?<Electronically signed by Cara Rodriges, DO in OV> ? 03/08/25 1155 ? DD/ 1030 ? TD/TT: 03/08/251114 ? Machine Tool Electrician: ? Procedure Note Donotuseinterpreter, Image - 03/13/2025 [facility] [address] [place], [place] [address] Mammography Report Signed with Addenda Patient: Maged Cast#: [id number] : 1975Acct:[id number] Age/Sex: 49 / FADM Date: 03/08/25 Loc: HO.MAMMO Attending Dr: Aaron Pringle MD Ordering Physician: Aaron Pringleesults: Date of Service: 03/08/25Follow Up: Procedure(s): MM stereotactic biopsy LT Accession Number(s): [id number] cc: Shereen Latham MD; Aaron Pringle MD ADDENDUM ADDENDUM #1 Left breast stereotactic core needle biopsy lateral asymmetry with distortion: Minute focus of atypical ductal hyperplasia. Focal gynecomastia like hyperplasia Predominantly benign breast tissue and adipose. Given that the original asymmetry was not fully biopsied and the clip was 2.5 cm medial to the original area of asymmetry targeted recommend breast MRI at this time for further evaluation. Recommend breast surgical consultation for excision and further management of atypical ductal hyperplasia and given that adjacent tissue is suspicious. Electronically signed by: Cara Rodriges DO 03/13/2025 01:31 PM EDT Addendum Dictated By: Cara Rodriges DO Addendum Signed By: <Electronically signed by DO Conrado in OV> 03/13/25 1331 Addendum Cosigned By: DD/ /26/1030 TD/TT: 05/05/26/1115 EXAMINATION: STEREOTACTICALLY-GUIDED LEFT BREAST BIOPSY CLINICAL INFORMATION: New developing focal asymmetry with subtle architectural distortion in the central outer left breast posterior depth no sonographic correlate was seen before stereotactic core needle biopsy was recommended. COMPARISON: Priors on PACS. INFORMED CONSENT: After the details of the procedure, as well as the risks (including, but not limited to, bleeding, hematoma formation, and infection), benefits and alternatives (including doing nothing, short-interval follow up, and surgery) to the procedure were explained to the patient in detail and all of her questions were answered, informed written consent was obtained. TECHNIQUE/FINDINGS: A timeout was performed. The lesion intended for biopsy was identified stereotactically and targeted. The skin of the left breast was then cleansed with sterile solution. Using stereotactic guidance, aseptic technique, and 1% lidocaine with and without epinephrine for local anesthesia, a total of 9 cores were obtained through the targeted area with a 9-gauge vacuum-assisted Eviva core biopsy device from a inferior approach. At the completion of tissue sampling, a single top hat-shaped metallic clip was deposited at the biopsy site. Adequate sampling was achieved. The postprocedure 2-view direct digital mammogram reveals the biopsy clip to be located 2.6 cm medial to the original area of focal asymmetry with distortion.. The patient tolerated the procedure well and, after assuring adequate hemostasis, was discharged in good condition after reviewing postbiopsy breast care instructions. Final pathology results are pending. MM/MM stereotactic biopsy LT IMPRESSION: 1. Uncomplicated stereotactically-guided core biopsy of the left breast. The 2-view direct digital postprocedure mammogram demonstrates the marker clip to be 2.6 cm medial to the original area of distortion which was not targeted and not seen during targeting. Management for this area will be pending pathology of the above biopsy. 2. Final pathology results are pending. A separate report with final recommendations will be issued once these results are made available. Electronically signed by: Cara Rodriges DO 03/08/2025 11:55 AM EDT Dictated By: Cara Rodriges DO Signed By: <Electronically signed by Cara Rodriges DO in OV> 03/08/25 1155 DD/ 1030 TD/TT: 03/08/25 1115 Machine Tool Electrician: [facility] External Provider IMG BI PROCEDURES Edited Result - Final * Vitamin B12 (Cobalamin) and Folate Panel, Serum (03/02/2025 9:00 AM EDT) Vitamin B12 621 200 - 900 pg/mL [facility] Comment:NORMAL 200-900 PG/ML INDETERMINATE 160-199 PG/ML DEFICIENT < 160 PG/ML Folate 17.2 > or = 4.0 ng/mL [facility] Comment:Reference Values:> o r = 4.0 [...] BLOOD ORDERABLES Final Result Performing Organization Address City/[facility]/ZIP Co de Phone Number [facility] [address] [place] [phone] * TSH with Reflex to Free T4 (03/02/2025 9:00 AM EDT) TSH reflex Free T4 1.34 0.32 - 4.0 uIU/mL [facility] Blood Venous blood specimen / Unknown 03/02/2025 9:00 AM EDT 03/02/2025 11:23 AM EDT Shereen Latham MD LAB BLOOD ORDERABLES Final Result Performing Organization Address City/[facility]/ZIP Co de Phone Number [facility] [address] [place] [address] [phone] * (ABNORMAL) CBC auto differential (03/02/2025 9:00 AM EDT) Only the most recent of2 resultswithin the time period is included. White Blood Count 10.3 4.8 - 10.8 X10*3/uL [facility] Red Blood Count 3.85(L) 4.20 - 5.50 X10*6/uL [facility] Hemoglobin 11.2(L) 12.0 - 16.0 g/dl [facility] Hematocrit 34.4(L) 37.0 - 47.0 % [facility] Mean Corpuscular Volume 89.4 80.0 - 98.0 fL [facility] Mean Corpuscular Hemoglobin 29.1 27.0 - 33.0 pg [facility] Mean Corpuscular HGB Conc 32.6 31.0 - 35.0 g/dl [facility] Red Cell Distribution Width 14.9 11.0 - 16.0 % [facility] Platelet Count 389 160 - 400 X10*3/uL [facility] Mean Platelet Volume 10.9 9.4 - 12.3 fL [facility] Neutrophils Percent Auto 58.9 45 - 73 % [facility] Imm Gran Pct Auto 0.5(H) 0.0 - 0.4 % [facility] Lymphocytes Percent Auto 28.0 20 - 40 % [facility] Monocytes Percent Auto 8.8 2 - 11 % [facility] Eosinophils Percent Auto 2.8 0 - 4 % [facility] Basophils Percent Auto 1.0 0 - 2 % [facility] NRBC Pct Auto 0.0 0.0 - 0.2 /100WBC [facility] Neutrophils Absolute Auto 6.1 2.0 - 8.3 x10*3/uL [facility] Imm Gran Abs Auto 0.05(H) 0.00 - 0.03 X10*3/uL [facility] Lymphocytes Absolute Auto 2.9 1.2 - 4.9 X10*3/uL [facility] Monocytes Absolute Auto 0.9 0.1 - 1.2 X10*3/uL [facility] Eosinophils Absolute Auto 0.3 0.0 - 0.4 X10*3/uL [facility] Basophils Absolute Auto 0.1 0.0 - 0.2 X10*3/uL [facility] NRBC Abs Auto 0.000 0.0 - 0.012 X10*3/uL [facility] Blood Venous blood specimen / Unknown 03/02/2025 9:00 AM EDT 03/02/2025 11:23 AM EDT Shereen Latham MD LAB BLOOD ORDERABLES Final Result Performing Organization Address [facility] de Phone Number [facility] [address] [place] [phone] * Iron And Total Iron Binding Capacity (03/02/2025 9:00 AM EDT) Iron 43 30 - 160 mcg/dL [facility] Total Iron Binding Capacity 262 228 - 428 mcg/dL [facility] Percent Iron Saturation 16 15 - 50 % [facility] Unsaturated Iron Binding 219 ug/dL [facility] Blood Venous blood specimen / Unknown 03/02/2025 9:00 AM EDT 03/02/2025 11:23 AM EDT Shereen Latham MD LAB BLOOD ORDERABLES Final Result Performing Organization Address [facility] de Phone Number [facility] [address] [place] [phone] * Uric acid (03/02/2025 9:00 AM EDT) Only the most recent of2 resultswithin the time period is included. Uric Acid 5.7 2.4 - 5.7 mg/dL [facility] Blood Venous blood specimen / Unknown 03/02/2025 9:00 AM EDT 03/02/2025 11:23 AM EDT Shereen Latham MD LAB BLOOD ORDERABLES Final Result Performing Organization Address [facility] Co de Phone Number [facility] [address] [place] [phone] * Magnesium (03/02/2025 9:00 AM EDT) Only the most recent of3 resultswithin the time period is included. Pathologist [facility] Magnesium 1.8 1.6 - 2.6 mg/dL [facility] Blood Venous blood specimen / Unknown 03/02/2025 9:00 AM EDT 03/02/2025 11:23 AM EDT Shereen Latham MD LAB BLOOD ORDERABLES Final Result Performing Organization Address [facility]/ZIP Co de Phone Number [facility] [address] [place] [address] [phone] * Ferritin (03/02/2025 9:00 AM EDT) Pathologist [facility] Ferritin 144 10 - 250 ng/mL [facility] Blood Venous blood specimen / Unknown 03/02/2025 9:00 AM EDT 03/02/2025 11:23 AM EDT Shereen Latham MD LAB BLOOD ORDERABLES Final Result Performing Organization Address City/[facility] Co de Phone Number [facility] [address] [place] [phone] * Hepatic Function Panel (03/02/2025 9:00 AM EDT) Pathologist [facility] Bilirubin, Total 0.2 0.0 - 1.0 mg/dL [facility] Bilirubin, Direct <0.2 0.0 - 0.5 mg/dL [facility] Aspartate Amino Transferase 19 5 - 31 U/L [facility] Alanine Aminotransferase 19 0 - 31 U/L [facility] Total Protein 7.4 6.5 - 8.0 g/dL [facility] Albumin Level 4.2 3.5 - 5.0 g/dL [facility] Alkaline Phosphatase 111 39 - 117 U/L [facility] Blood Venous blood specimen / Unknown 03/02/2025 9:00 AM EDT 03/02/2025 11:23 AM EDT us Shereen Latham MD LAB BLOOD ORDERABLES Final Result [facility] [address] [place] [phone] * BI US Breast Limited Left (02/23/2025 12:15 PM EDT) Anatomical Region Laterality Modality Breast Left Ultrasound 02/23/2025 12:1 5 PM EDT Narrative 02/23/2025 1:08 PM EDT ? [facility] [place] ? [address] ?[place] [address] ? Ultrasound Report ? Signed ? Patient: Segun,Azra ?MR#: [id number] ?? [id number] ? : 1975 ?Acct:[id number] ? Age/Sex: 49 / F ?ADM Date: 02/23/25 ? Loc: HO.MAMMO ? Attending Dr: Stacey Khan MD ? Ordering Physician: Stacey Khan MD ?? Date of Service: 02/23/25 ?? Procedure(s): US breast LT limited mamm only ?? Accession Number(s): [id number] ? cc: Shereen Latham MD; Stacey Khan [...] BI-RADS breast ?? composition Category b). ?? [place] marker in the upper outer breast area [...] DD/ 1215 ? TD/TT: 02/23/25 1237 ? Machine Tool Electrician: ? Procedure Note Sumi, Image - 02/23/2025 [facility] [address] [place] [address] [place] [address] Ultrasound Report Signed Patient: Maged Cast#: [id number] : 1975Acct:[id number] Age/Sex: 49 / FADM Date: 02/23/25 Loc: ALBERTO Attending Dr: Stacey Khan MD Ordering Physician: Stacey Khan MD Date of Service: 02/23/25 Procedure(s): US breast LT limited mamm only Accession Number(s): [id number] cc: Shereen Latham MD; Stacey Khan MD [...] density (ACR BI-RADS breast composition Category b). [place] marker in the upper outer breast area [...] 02/23/25 1306 DD/ 1215 TD/TT: 02/23/25 1237 Machine Tool Electrician: us Stacey Khan MD IMG US PROCEDURES Final Result * BI Mammogram Diagnostic Tomosynthesis Left (02/23/2025 11:40 AM EDT) Anatomical Region Laterality Modality Breast Left Mammography 02/23/2025 11:4 0 AM EDT Narrative 02/23/2025 1:08 PM EDT ? [facility] ? [address] ?[place] [address] ?[phone] ? Mammography Report ? Signed ? Patient: Acst,Azra ?MR#: [id number] ?? [id number] ? : 1975 ?Acct:[id number] ? Age/Sex: 49 / F ?ADM Date: 02/23/ ? Loc: HO.MAMMO ? Attending Dr: Stacey Khan MD ? Ordering Physician: Stacey Khan MD ?Results: 4Suspicio ?? us Finding ? Date of Service: 02/23/ ?Follow Up: Biopsy Recommend ?? ed ? Procedure(s): MM tomosynthesis diagnostic LT ?? Accession Number(s): [id number] ? cc: Shereen Latham MD; Stacey Khan [...] BI-RADS breast ?? composition Category b). ?? [place] marker in the upper outer breast area [...] DD/ 1140 ? TD/TT: 02/23/25 1150 ? Machine Tool Electrician: ? Procedure Note Donotuseinterpreter, Image - 02/23/2025 [facility] [address] [place], [place] [address] Mammography Report Signed Patient: Maged Cast#: [id number] : 1975Acct:[id number] Age/Sex: 49 / FADM Date: 02/23/25 Loc: HO.MAMMO Attending Dr: Stacey Khan MD Ordering Physician: Stacey Khan MDResults: 4Suspicio us Finding Date of Service: 02/23/25Follow Up: Biopsy Recommend ed Procedure(s): MM tomosynthesis diagnostic LT Accession Number(s): [id number] cc: Shereen Latham MD; Stacey Khan MD [...] density (ACR BI-RADS breast composition Category b). [place] marker in the upper outer breast area [...] 02/23/25 1306 DD/ 1140 TD/TT: 02/23/25 1150 Machine Tool Electrician: us Stacey Khan MD IMG BI PROCEDURES Final Result * Stress test with myocardial perfusion (02/09/2025 9:30 AM EDT) 02/09/2025 9:30 AM EDT [facility] IMAGING - 02/24/2025 11:11 AM EDT ? [facility] ?[address] ?[place] [address] ?Nuclear Medicine Report ? Signed ? Patient: Azra Cast ?MR#: [id number] ?? [id number] ? : 1975 ?Acct:[id number] ? Age/Sex: 49 / F ?ADM Date: 02/09/25 ? Loc: HO.CARD ? Attending Dr: Margaret ALMANZA ? Ordering Physician: Margaret Holman ?? Date of Service: 02/09/25 ?? Procedure(s): NM cardiolite stress test ?? Accession Number(s): [id number] ? cc: Shereen Latham MD; Margaret Holman [...] DD/ 0930 ? TD/TT: 02/22/25 1215 ? Machine Tool Electrician: ? Procedure Note Sumi, Gypsy - 02/24/[address] [address] Nuclear Medicine Report Signed Patient: Maged Cast#: [id number] : 1975Acct:[id number] Age/Sex: 49 / FADM Date: 02/09/25 Loc: CATALINA Attending Dr: Margaret Holman MILITARY ADMINISTRATIVE TECHNICIAN-C Ordering Physician: Margaret Holman MILITARY ADMINISTRATIVE TECHNICIAN-C Date of Service: 02/09/25 Procedure(s): PA cardiolite stress test Accession Number(s): [id number] cc: Shereen Latham MD; Margaret Holman EXERCISE [...] no clear reversible or fixed perfusion abnormality. NM/PA cardiolite stress test IMPRESSION: 1. Myocardial perfusion [...] 02/24/25 1108 DD/ 0930 TD/TT: 02/22/25 1215 Machine Tool Electrician: [facility] External Provider CV STRE SS PROCEDURES Edited Result - Final [facility] [address] [place] [phone] * D Dimer High Sensitivity (01/19/2025 4:33 PM EDT) [facility] D Dimer High Sensitivity <150 NG/ML [facility] Comment:D-DIMER HS REFERENCE RANGENote: Our [...] Final Result Performing Organization Address [facility] Co de Phone Number [facility] [address] [place] [phone] * High Sensitivity Troponin I (01/19/2025 4:33 PM EDT) [facility] TROPONIN I HIGH SENSITIVITY 7.8 <3.5 - 17.0 ng/L [facility] Comment:The Henriquez high sens itivity Troponin-I results should beused in conjunction with other diagnostic information suchas ECG, clinical observations and information, and patientsymptoms to aid in the diagnosis of DE. 01/19/2025 4:33 PM EDT 01/19/2025 4:34 PM EDT us Generic External Data Provider LAB BLOOD ORDERAB LES Final Result Performing Organization Address [facility]/ZIP Co de Phone Number [facility] [address] [place] [phone] * B Type Natriuretic Peptide (BNP) (01/19/2025 4:33 PM EDT) [facility] B Type Natriuretic Peptide 22 <100 pg/mL [facility] 01/19/2025 4:33 PM EDT 01/19/2025 4:34 PM EDT us Generic External Data Provider LAB BLOOD ORDERAB LES Final Result Performing Organization Address City/[facility]/ZIP Co de Phone Number [facility] [address] [place] [phone] * (ABNORMAL) Lipid Panel, Standard (12/29/2024 10:53 AM EST) Triglycerides 192(H) <150 mg/dL [facility] Comment:Desirable Triglyceri de: less than 150 mg/dLBorderline High Triglyceride 150-199 mg/dLHigh Triglyceride: 200-499 mg/dLVery High Triglyceride: greater than or equal to 5OO mg/dL Cholesterol 197 <200 mg/dL [facility] Comment:Desirable Cholestero l: less than 200 mg/dLBorderline High Cholesterol: 200-239 mg/dLHigh Cholesterol: greater than 239 mg/dL LDL Cholesterol Calculated 111(H) <100 mg/dL [facility] Comment:Desirable LDL: less than 100 mg/dLNear Optimal/Above Optimal LDL: 110- 129 mg/dLBorderline High LDL: 130-159 mg/dLHigh LDL: 160-189 mg/dLVery High LDL: greater than or equal to 190 mg/dL HDL Cholesterol 48 >40 mg/dL [facility] Comment:Desirable HDL: great er than 40 mg/dL Note: This HDL assay may give artificially low results in patients with liver disease. Blood Venous blood specimen / Unknown 12/29/2024 10:53 AM EST 12/29/2024 1:06 PM EST us Shereen Latham MD LAB BLOOD ORDERABLES Final Result Performing Organization Address City/[facility]/ZIP Co de Phone Number [facility] [address] [place] [phone] * (ABNORMAL) Basic Metabolic Panel (12/29/2024 10:53 AM EST) Sodium 139 135 - 145 mmol/L [facility] Potassium 4.1 3.3 - 5.1 mmol/L [facility] Chloride 105 96 - 108 mmol/L [facility] Carbon Dioxide 23 22 - 29 mmol/L [facility] Anion Gap 15 12 - 20 [facility] Urea Nitrogen (BUN) 32(H) 9 - 16 mg/dL [facility] Creatinine, Serum 0.91 0.5 - 1.4 mg/dL [facility] Estimated Glomerular Filt Rate >60 [facility] Comment:Chronic Kidney Disea se: Estimated GFR < 60 mL/min/[id number] Kidney Disease: Estimated GFR < 15 mL/min/1.73m2 Glucose 161(H) 60 - 115 mg/dL [facility] Calcium 9.3 8.4 - 10.2 mg/dL [facility] Blood Venous blood specimen / Unknown 12/29/2024 10:53 AM EST 12/29/2024 1:06 PM EST Shereen Latham MD LAB BLOOD ORDERABLES Final Result [facility] [address] [place] [phone] * XR Knee 1-2 Views Right (12/20/2024 7:45 AM EST) Anatomical Region Laterality Modality Lower Extremities, Knee Right Radiogra phic Imaging 12/20/2024 7:45 AM EST Narrative 12/20/2024 8:20 AM EST ? [facility] ?[address] ?[place] [address] ?XRay Report ? Signed ? Patient: Segun,Azra ?MR#: [id number] ?? [id number] ? : 1975 ?Acct:[id number] ? Age/Sex: 49 / F ?ADM Date: 02/18/25 ? Loc: HO.ED ? Attending Dr: ? Ordering Physician: Boby Dykes MD ?? Date of Service: 12/20/24 ?? Procedure(s): XR knee RT 2V ?? Accession Number(s): [id number] ? cc: Shereen Latham MD; Boby Dykes [...] DD/ 0745 ? TD/TT: 12/20/24 0751 ? Machine Tool Electrician: ? Procedure Note Sumi, Gypsy - 12/20/2024 [place] [address] XRay Report Signed Patient: Maged Cast#: [id number] : 1975Acct:[id number] Age/Sex: 49 / FADM Date: 12/20/24 Loc: HO.ED Attending Dr: Ordering Physician: Boby Dykes MD Date of Service: 12/20/24 Procedure(s): XR knee RT 2V Accession Number(s): [id number] cc: Shereen Latham MD; Boby Dykes MD [...] 12/20/24 0817 DD/ 0745 TD/TT: 12/20/24 0751 Machine Tool Electrician: [facility] External Provider IMG XR PROCEDURES Edited Result - Final * (ABNORMAL) Colonoscopy (07/11/2024) Pathologist [facility] Colonoscopy Abnormal( A) Normal Comment:Herberth Stokes MD ?tubular adenoma x 3 Herberth Stokes MD HEALTH MAINTENANCE Final Result * Hepatitis Panel, General (06/16/2024 8:22 AM EDT) Pathologist [facility] Hepatitis A IgM Nonreactive Nonreactive [facility] Comment:IgM antibodies to VIRAMONTES V not detected; does not exclude earlyacute or recovered HAV infection. ~Hepatitis B Surface Antibody REACTIVE Nonreactive [facility] Comment:REACTIVE: > 11.99 mI U/mL Hepatitis B Core Antibody Nonreactive Nonreactive [facility] Hepatitis C Antibody Nonreactive Nonreactive [facility] Comment:Antibodies to HCV no t detected; does not exclude early acuteHCV infection. Hepatitis B Surface Ag Negative Negative [facility] Blood Venous blood specimen / Unknown 06/16/2024 8:22 AM EDT 06/16/2024 11:18 AM EDT Shereen Latham MD LAB BLOOD ORDERABLES Final Result [facility] [address] [place] [address] [phone] * HIV-1/2 Antigen and Antibodies, Fourth Generation, with Reflexes (02/24/2024 8:47 AM EDT) HIV AB/AG Nonreactive Nonreactive [facility] Comment:HIV-1 p24 Ag and/or HIV-1/HIV-2 Ab not detected.A test result that is nonreactive does not exclude thepossibility of exposure to or infection with HIV-1 and/orHIV-2. Nonreactive results in this assay for individualswith prior exposure to HIV-1 and/or HIV-2 may be due toantigen and antibody levels that are below the limit ofdetection of this assay.The [employer] HIV Ag/Ab Combo assay result andsupplemental assay results should be interpreted inconjunction with the patient's clinical presentation,history and other laboratory results. If the results areinconsistent with clinical evidence, additional testing issuggested to confirm the result. Blood Venous blood specimen / Unknown 02/24/2024 8:47 AM EDT 02/24/2024 11:22 AM EDT Critical access hospital LAB BLOOD ORDERABLES Final Resul t Performing Organization Address [facility]/ZIP Co de Phone Number [facility] [address] [place] [address] [phone] * (ABNORMAL) Cologuard?? colon cancer screening (08/27/2023 11:24 AM EDT) Cologuard Result Positive( A) Negative 09/05/2023 10:16 PM EDT [facility] (CLIA #:[id number]) Comment: POSITIVE TEST RESULT. A positive Cologuard [...] Menendez et al, N Engl J Med 2014;370(14):1549-8563.) Cologuard may produce a false negative or false positive result (no colorectal cancer or precancerous polyp present at colonoscopy follow up). A negative Cologuard test result does not guarantee the absence of CRC or advanced adenoma (pre-cancer). The current Cologuard screening interval is every 3 years. ([place] [employer] Society and U.S. Multi-Society Task Force). Cologuard performance data in a 10,000 patient pivotal study using colonoscopy as the reference method can be accessed at the following location: www.AeroFS/results. Additional description of the Cologuard test process, warnings and precautions can be found at www.L[employer] Technology[employer].com. Stool specimen (specimen) 08/27/2023 11:24 AM EDT 08/29/2023 6:48 AM EDT Shereen Latham MD LAB MOLECULAR DIAGNOSTICS ORDERABLES Final Result [facility] (CLIA #:[id number]) [address] [place] [address], * HPV mRNA E6/E7 (08/12/2018 10:57 AM EDT) HPV mRNA E6/E7 Not Detected NOT DETECTED [facility] Comment: This test was performed using the APTIMA(R) HPV Assay ([employer] This assay detects E6/E7 viral messenger RNA (mRNA) from 14 high-risk HPV types (16,18,31,33,35,39,45,51, 52,56,58,59,66,68). For additional information please refer to: http://education.[employer]/faq/UHY732f4 (This link is being provided for informational/ educational purposes only.) The analytical performance characteristics of this assay have been determined by [employer] [place], [place]. The modifications have not been cleared or approved by the FDA. This assay has been validated pursuant to the CLIA regulations and is used for clinical purposes. Test Performed by [facility], [employer] [facility], [address] [place] [address] Dwaine Morelos M.D., Ph.D., Director of Laboratories , CLIA [id number] Please note: ??Effective 07/14/2016, HPV testing will be performed using [employer]'s APTIMA test which targets mRNA. Detecting mRNA instead of DNA, as in older methods, offers significant improvements in specificity. 08/12/2018 10:5 7 AM EDT us Shereen Latham MD HISTORICAL/NON ORDERABLE L ABS Final Result [facility] [address] from Last 3 Months or Most Recently Relevant to Health Maintenance Insurance [facility] [facility]ICA[place] STAND ADULT [facility] STANDARD [facility] MEDICAID STAND ADULT Advance Directives Documents on File Type Date Recorded Patient Cashier Assistant Expl anation Advance Directives and Living Will 07/05/2024 11:59 AM Health Care Proxy Care Teams Lawn Mower Mechanic Relationship Specialty Start Date End Date Sehreen Latham MD [address] [place] [address] PCP - General Family Medicine 11/02/18 Nupur Bullock, CharleneD [address] [place] [address] Pharmacist Internal Medicine 08/09/24 Sury Benitez [address] [place] [address] [address] [place] [address] Pulmonary Disease 09/27/24 Nirali Madrid OD [address] [place] [address] Optometry 10/27/24 Li Grande MD [address] [place] [address] Hematology and Oncology 10/27/24 Anselmo Gates MD 10 [facility] [address] [place] [address] Orthopaedic Surgery 10/27/24 Margaret Holman 11 [facility] [address] [place] [address] Cardiology 10/27/24 Herberth Stokes MD 11 [facility] [address] [place] [address] Gastroenterology 10/27/24 Hilton Palacios MD [address] [place] [address], [address] [place] [address] Neurology 02/06/25 Aaron Pringle MD [address] [place] [address] 3rd [place] [address] General Surgery 03/07/25 Pily Delaney Mail Order ClerkProject Development Leader 07/22/24 Elie BRASHER [facility] 12/29/24
--- OUTSIDE RECORDS SUMMARY | 2025-03-16 14:00 | XMS_ITS | Encounter Summary ---
Author Organization [employer] Address 75 [facility] 7 [place] [address] Care Team Providers Care Operating Room Assistant Name Role Phone Shereen Latham MD Primary Care Provider [phone] Nupur Bullock PharmD Unavailable Sury Benitez Unavailable [phone] Nirali Madrid OD Unavailable Li Grande MD Unavailable [phone] Anselmo Gates MD Unavailable Margaret Holman Unavailable Herberth Stokes MD Unavailable [phone] Hilton Palacios MD Unavailable [phone] Aaron Pringle MD Unavailable [phone] Reason for Visit * Reason Onset Date Comments Medication Question 08/25/2024 Encounter Details Date Type Department Care Team (Late st Contact Info) Description 08/25/2024 Telephone [facility] MEDICINE [address] [place], [place] [phone] Shereen Latham MD [address] [place], [place] [phone] Medication Question Social History Tobacco Use Types [...] any questions you can contact pt at [phone]. documented in this encounter Plan of Treatment Upcoming Encounters Date Type Department Care Team (Late st Contact Info) Description 03/29/2025 2:00 PM EDT Office Visit [facility] ADULT DENTAL [address] [place] [address] Heidi, Jenny [address] [place] [address] 04/25/2025 2:30 PM EDT Medication Management [facility] MEDICINE [address] [place] [address] Nupur Bullock PharmD [address] [place] [address] 04/26/2025 9:30 AM EDT Office Visit [facility] MEDICINE [address] [place] [address] Shereen Latham MD [address] [place] [address] documented as of this encounter Visit Diagnoses Not on filedocumented in this encounter Additional Health Concerns Assessment Noted Time PHQ-9 Depression Total Score: 13 024 4:53 PM EDT documented as of this encounter Care Teams Operating Room Assistant Relationship Specialty Start Date End Date Shereen Latham MD [address] [place] [address] PCP - General Family Medicine 11/02/18 Nupur Bullock, PharmD [address] [place] [address] Pharmacist Internal Medicine 08/09/24 Sury Benitez [address] [place] [address] [place] [address] [place] [address] Pulmonary Disease 09/27/24 Nirali Madrid OD [address] [place] [address] Optometry 10/27/24 Li Grnade MD [address] [place] [address] Hematology and Oncology 10/27/24 Anselmo Gates MD [address] [place] [address] Orthopaedic Surgery 10/27/24 Margaret Holman [address] [place] [address] Cardiology 10/27/24 Herberth Stokes MD 11 [facility] 3rd [place] [address] Gastroenterology 10/27/24 Hilton Palacios MD 15 [facility], [address] [place] [address] Neurology 02/06/25 Aaron Pringle MD 11 [facility] [address] [place] [address] General Surgery 03/07/25 Pily Delaney Surgical OrderlyChief Credit Officer 07/22/24 Elie Vicky [facility] Psychology 12/29/24 documented as of this encounter
--- OUTSIDE RECORDS SUMMARY | 2025-03-16 14:00 | XMS_ITS | Encounter Summary ---
Author Organization [employer] Address 75 [facility] 7 [place] [address] Care Team Providers Care Business Liaison Manager Name Role Phone Shereen Latham MD Primary Care Provider [phone] Nupur Bullock PharmD Unavailable Sury Benitez Unavailable [phone] Nirali Madrid OD Unavailable [phone] Li Grande MD Unavailable [phone] Anselmo Gates MD Unavailable Margaret Holman Unavailable Herberth Stokes MD Unavailable [phone] Hilton Palacios MD Unavailable Aaron Pringle MD Unavailable [phone] Reason for Visit * Reason Onset Date Comments ER Follow-up 12/07/2024 Encounter Details Date Type Department Care Team (Late st Contact Info) Description 12/07/2024 Telephone [facility] MEDICINE [address] [place], [place] [phone] Shereen Latham MD [address] [place], [place] [phone] ER Follow-up Social History Tobacco Use Types [...] TC placed to pt to f/u on [facility] ED visit on 12/06/2024 for right lower [...] ED visit on : Date: 12/06/24 Hospital: [facility] Seen for: Flu Patient advised will forward to team nurse for follow up documented in this encounter Plan of Treatment Upcoming Encounters Date Type Department Care Team (Late st Contact Info) Description 03/29/2025 2:00 PM EDT Office Visit [facility] ADULT DENTAL [address] [place] [address] Heidi, Jenny [address] [place] [address] 04/25/2025 2:30 PM EDT Medication Management [facility] MEDICINE [address] [place] [address] Nupur Bullock, PharmD [address] [place] [address] 04/26/2025 9:30 AM EDT Office Visit [facility] MEDICINE [address] [place] [address] Shereen Latham MD [address] [place] [address] documented as of this encounter Visit Diagnoses Not on filedocumented in this encounter Additional Health Concerns Assessment Noted Time PHQ-9 Depression Total Score: 13 024 4:53 PM EDT documented as of this encounter Care Teams Business Liaison Manager Relationship Specialty Start Date End Date Shereen Latham MD [address] [place] [address] PCP - General Family Medicine 11/02/18 Nupur Bullock PharmD [address] [place] [address] Pharmacist Internal Medicine 08/09/24 Sury Benitez [address] [place] [address] [address] [place] [address] Pulmonary Disease 09/27/24 Nirali Madrid OD [address] [place] [address] Optometry 10/27/24 Li Grande MD [address] [place] [address] Hematology and Oncology 10/27/24 Anselmo Gates MD 10 [facility] [address] [place] [address] Orthopaedic Surgery 10/27/24 Margaret Holman 11 [facility] 3rd [place] [address] Cardiology 10/27/24 Herberth Stokes MD 11 [facility] 3rd [place] [address] Gastroenterology 10/27/24 Hilton Palacios MD 15 [facility], [address] [place] [address] Neurology 02/06/25 Aaron Pringle MD 11 [facility] [address]rd [place] [address] General Surgery 03/07/25 Pily Delaney Legal AdministratorUnmanned Aircraft Systems Roboticist 07/22/24 Elie BRASHER [facility] Psychology 12/29/24 documented as of this encounter
--- OUTSIDE RECORDS SUMMARY | 2025-03-16 14:00 | XMS_ITS | Encounter Summary ---
Author Organization [employer] Address 75 [facility] 7 [place] [address] Care Team Providers Care Measurement Psychologist Name Role Phone Shereen Latham MD Primary Care Provider [phone] Nupur Bullock PharmD Unavailable Sury Benitez Unavailable [phone] Nirali Madrid OD Unavailable Li Grande MD Unavailable [phone] Anselmo Gates MD Unavailable Margaret Holman Unavailable Herberth Stokes MD Unavailable [phone] Hilton Palacios MD Unavailable Aaron Pringle MD Unavailable [phone] Reason for Visit * Reason Comments Med Refill Encounter Details Date Type Department Care Team (Late st Contact Info) Description 01/17/2025 Refill [facility] MED & PEDS [address] [place], [place] [phone] Shereen Latham MD [address] [place], [place] [phone] Pain Social History Tobacco Use Types Packs/Day [...] Upcoming Encounters Date Type Department Care Team ([facility] st Contact Info) Description 03/29/2025 2:00 PM EDT Office Visit [facility] ADULT DENTAL [address] [place] [address] Jenny Gordon [address] [place] [address] 04/25/2025 2:30 PM EDT Medication Management [facility] MEDICINE [address] [place] [address] Nupur Bullock PharmD [address] [place] [address] 04/26/2025 9:30 AM EDT Office Visit [facility] MEDICINE [address] [place] [address] Shereen Latham MD [address] [place] [address] documented as of this encounter Visit Diagnoses Diagnosis Pain Generalized pain documented in this encounter Additional Health Concerns Assessment Noted Time PHQ-9 Depression Total Score: 22 025 10:17 AM EST documented as of this encounter Care Teams Measurement Psychologist Relationship Specialty Start Date End Date Shereen Latham MD [address] [place] [address] PCP - General Family Medicine 11/02/18 Nupur Bullock, Pushpa [address] [place] [address] Pharmacist Internal Medicine 08/09/24 Sury Benitez [address] [place] [address] [address] [place] [address] Pulmonary Disease 09/27/24 Nirali Madrid OD [address] [place] [address] Optometry 10/27/24 Li Grande MD [address] [place] [address] Hematology and Oncology 10/27/24 Anselmo Gates MD [address] [place] [address] Drive [address] [place] [address] Orthopaedic Surgery 10/27/24 Margaret Holman [address] [facility] [address] 3rd [place] [address] Cardiology 10/27/24 Herberth Stokes MD [address] [facility] [address] 3rd [place] [address] Gastroenterology 10/27/24 Hilton Palacios MD [address] [place] [address], [address] [place] [address] Neurology 02/06/25 Aaron Pringle MD 11 [facility] 3rd [place] [address] General Surgery 03/07/25 Pily Delaney Ship LoaderHematology Nurse 07/22/24 Elie Vicky [facility] 12/29/24 documented as of this encounter
--- OUTSIDE RECORDS SUMMARY | 2025-03-16 14:00 | XMS_ITS | Encounter Summary ---
Author Organization [employer] Address 75 [facility] 7t [place] [address] Care Team Providers Care Rn Testing Name Role Phone Shereen Latham MD Primary Care Provider [phone] Nupur Bullock PharmD Unavailable [phone] Sury Benitez Unavailable [phone] Nirali Madrid OD Unavailable Li Grande MD Unavailable [phone] Anselmo Gates MD Unavailable Margaret Holman Unavailable Herberth Stokes MD Unavailable [phone] Hilton Palacios MD Unavailable [phone] Aaron Pringle MD Unavailable [phone] Encounter Details Date Type Department Care Team (Latest Contact Info) Description 08/16/2021 Abstract [facility] CONVERSIONS Dental, Provider, DDS [...] 2:00 PM EDT Office Visit [facility] ADULT DENTAL [address] [place] [address] Heidi, Jenny [address] [place] [address] 04/25/2025 2:30 PM EDT Medication Management [facility] MEDICINE [address] [place] [address] Nupur Bullock, PharmD [address] [place] [address] 04/26/2025 9:30 AM EDT Office Visit [facility] MEDICINE [address] [place] [address] Shereen Latham MD [address] [place] [address] documented as of this encounter Visit Diagnoses Not on filedocumented in this encounter Care Teams Rn Testing Relationship Specialty Start Date End Date Shereen Latham MD [address] [place] [address] PCP - General Family Medicine 11/02/18 Nupur Bullock, Pushpa [address] [place] [address] Pharmacist Internal Medicine 08/09/24 Sury Benitez [address] [place] [address] Pulmonary Disease 09/27/24 Nirali Madrid OD [address] [place] [address] Optometry 10/27/24 Li Grande MD [address] [place] [address] Hematology and Oncology 10/27/24 Anselmo Gates MD [address] [place] [address] Orthopaedic Surgery 10/27/24 Margaret Holman [address] 3rd [place] [address] Cardiology 10/27/24 Herberth Stokes MD [address] 3rd [place] [address] Gastroenterology 10/27/24 Hilton Palacios MD [address] [facility] [address] [place] [address] Neurology 02/06/25 Aaron Pringle MD [address] [place] [address] General Surgery 03/07/25 Pily Delaney [employer] News ProducerShipwright Supervisor 07/22/24 Elie Vicky [facility] 12/29/24 documented as of this encounter
--- OUTSIDE RECORDS SUMMARY | 2025-03-16 14:00 | XMS_ITS | Encounter Summary ---
Author Organization [employer] Address [address] [facility] 7t [place] [address] Care Team Providers Care Craft Recruiter Name Role Phone Shereen Latham MD Primary Care Provider Nupur Bullock PharmD Unavailable [phone] Sury Benitez Unavailable [phone] Nirali Madrid OD Unavailable Li Grande MD Unavailable [phone] Anselmo Gates MD Unavailable Margaret Holman Unavailable Herberth Stokes MD Unavailable [phone] Hilton Palacios MD Unavailable [phone] Aaron Pringle MD Unavailable [phone] Reason for Referral * Consultation (Routine) - Closed Specialty Diagnoses / Procedures Referred By Contac t Referred To Contact Obstetrics and Gynecology Diagnoses Women's annual routine gynecological examination Stacey Khan MD [address] [place] [address] Phone: tel: fax: [facility] Women? s Services [address] 5th [address] (Main Hospital Entrance) [place], [place] Phone: tel: fax: Referral ID Status Reason Start Date Expiration Date V isits Requested Visits Authorized [id number] Closed Specialty Services Required 01/19/2025 01/19/2026 9 9 Encounter Details Date Type Department Care Team (Late st Contact Info) Description 01/19/2025 Orders Only [facility] [address] [place] [address] Stacey Khan MD [address] [place], [place] [phone] Women's annual routine gynecological examination (Primary Dx) [...] Description 03/29/2025 2:00 PM EDT Office Visit [facility] [address] [place] [address] Heidi, Jenny [address] [place] [address] 04/25/2025 2:30 PM EDT Medication Management [facility] [address] [place] [address] Nupur Bullock PharmD [address] [place] [address] 04/26/2025 9:30 AM EDT Office Visit [facility] [address] [place] [address] Shereen Latham MD [address] [place] [address] Scheduled Referrals Name Type Priority Associated Diagnoses [...] Sensitivity Troponin I (01/19/2025 4:33 PM EDT) [facility] TROPONIN I HIGH SENSITIVITY 7.8 <3.5 - 17.0 ng/L [facility] Comment:The Henriquez high sens itivity Troponin-I results should beused in conjunction with other diagnostic information suchas ECG, clinical observations and information, and patientsymptoms to aid in the diagnosis of PR. 01/19/2025 4:33 PM EDT 01/19/2025 4:34 PM EDT Generic External Data Provider LAB BLOOD ORDERAB LES Final Result Performing Organization Address [facility] Co de Phone Number [facility] [address] [place] [phone] * B Type Natriuretic Peptide (BNP) (01/19/2025 4:33 PM EDT) [facility] B Type Natriuretic Peptide 22 <100 pg/mL [facility] 01/19/2025 4:33 PM EDT 01/19/2025 4:34 PM EDT Generic External Data Provider LAB BLOOD ORDERAB LES Final Result Performing Organization Address [facility] Co de Phone Number [facility] [address] [place] [phone] * D Dimer High Sensitivity (01/19/2025 4:33 PM EDT) [facility] D Dimer High Sensitivity <150 NG/ML [facility] Comment:D-DIMER HS REFERENCE RANGENote: Our assay [...] Provider LAB BLOOD ORDERAB LES Final Result [facility] [address] [place] [phone] documented in this encounter Visit Diagnoses Diagnosis Women's annual routine gynecological examination- Primary documented in this encounter Additional Health Concerns Assessment Noted Time PHQ-9 Depression Total Score: 025 10:17 AM EST documented as of this encounter Care Teams Craft Recruiter Relationship Specialty Start Date End Date Shereen Latham MD [address] [place] [address] PCP - General Family Medicine 11/02/18 Nupur Bullock, CharleneD [address] [place] [address] Pharmacist Internal Medicine 08/09/[address] Sury Benitez [address] [place] [address] Dr [facility] [address] [place] [address] Pulmonary Disease 09/27/24 Nirali Madrid, SUSAN [address] [place] [address] Optometry 10/27/24 Li Grande MD [address] [place] [address] Hematology and Oncology 10/27/24 Anselmo Gates MD [address] [place] [address] Orthopaedic Surgery 10/27/24 Margaret Holman [address] 3rd [place] [address] Cardiology 10/27/24 Herberth Stokes MD [address] [facility] 3rd [place] [address] Gastroenterology 10/27/24 Hilton Palacios MD [address] [place] [address], [address] [place] [address] Neurology 02/06/25 Aaron Pringle MD [address] [place] [address] 3rd [place] [address] General Surgery 03/07/25 Pily Delaney Cook Room SupervisorPipe Insulator Helper 07/22/24 Elie BRASHER [facility] 12/29/24 documented as of this encounter
--- OUTSIDE RECORDS SUMMARY | 2025-03-16 14:00 | XMS_ITS | Encounter Summary ---
Author Organization [employer] Address [address] [place] [address] 7 [place] [address] Care Team Providers Care Veterinary Milk Specialist Name Role Phone Shereen Latham MD Primary Care Provider [phone] Nupur Bullock PharmD Unavailable Sury Benitez Unavailable [phone] Nirali Madrid OD Unavailable Li Grande MD Unavailable Anselmo Gates MD Unavailable Margaret Holman Unavailable Herberth Stokes MD Unavailable [phone] Hilton Palacios MD Unavailable [phone] Aaron Pringle MD Unavailable [phone] Reason for Visit * Reason Comments Med Refill Encounter Details Date Type Department Care Team (Late st Contact Info) Description 12/02/2022 Refill [facility] [address] [place], [place] [phone] Shereen Latham MD [address] [place], [place] [phone] Wheeze (Primary Dx); Pain Social History Tobacco [...] Description 03/29/2025 2:00 PM EDT Office Visit [facility] 230 [place] [address] Heidi, Jenny [address] [place] [address] 04/25/2025 2:30 PM EDT Medication Management [facility] [address] [place] [address] Nupur Bullock PharmD [address] [place] [address] 04/26/2025 9:30 AM EDT Office Visit [facility] [address] [place] [address] Shereen Latham MD [address] [place] [address] documented as of this encounter Visit Diagnoses Diagnosis Wheeze- Primary Wheezing Pain Generalized pain documented in this encounter Care Teams Veterinary Milk Specialist Relationship Specialty Start Date End Date Shereen Latham MD [address] [place] [address] PCP - General Family Medicine 11/02/18 Nupur Bullock, PharmD [address] [place] [address] Pharmacist Internal Medicine 08/09/24 Sury Benitez [address] [place] [address] [place] [address] [place] [address] Pulmonary Disease 09/27/24 Nirali Madrid OD [address] [place] [address] Optometry 10/27/24 Li Grande MD [address] [place] [address] Hematology and Oncology 10/27/24 Anselmo Gates MD [address] [place] [address] Orthopaedic Surgery 10/27/24 Margaret Holman [address] [place] [address] Cardiology 10/27/24 Herberth Stokes MD [address] [facility] 3rd [place] [address] Gastroenterology 10/27/24 Hilton Palacios MD [address] [facility] [place] [address] Neurology 02/06/25 Aaron Pringle MD [address] [facility] 3rd [place] [address] General Surgery 03/07/25 Pily Delaney Manager Of SchoolMortuary Beautician 07/22/24 Elie BRASHER [facility] 12/29/24 documented as of this encounter
--- OUTSIDE RECORDS SUMMARY | 2025-03-16 14:00 | XMS_ITS | Clinical Summary ---
Author Organization [employer] [facility] Address [address] [place] [address] Care Team Providers Care Art Dealer Name Role Phone Shereen Latham MD Primary Care Provider [phone] Social History Tobacco Use Types Packs/Day Years [...] age to complete this topic Care Teams Art Dealer Relationship Specialty Start Date End Date Shereen Latham MD [address] [place] [phone] PCP - General 01/13/1996
--- OUTSIDE RECORDS SUMMARY | 2025-03-16 14:00 | XMS_ITS | Encounter Summary ---
Author Organization [employer] Address [address] [place] [address] 7 [place] [address] Care Team Providers Care Yard Laborer Name Role Phone Shereen Latham MD Primary Care Provider [phone] Nupur Bullock PharmD Unavailable Sury Benitez Unavailable [phone] Nirali Madrid OD Unavailable [phone] Li Graned MD Unavailable [phone] Anselmo Gates MD Unavailable Margaret Holman Unavailable Herberth Stokes MD Unavailable [phone] Hilton Palacios MD Unavailable Aaron Pringle MD Unavailable [phone] Encounter Details Date Type Department Care Team (Late st Contact Info) Description 07/27/2023 Orders Only [facility] [address] [place], [place] [phone] Shereen Latham MD [address] [place], [place] [phone] Hypomagnesemia Social History Tobacco Use Types Packs/Day [...] Description 03/29/2025 2:00 PM EDT Office Visit [facility] [address] [place] [address] Heidi, Jenny [address] [place] [address] 04/25/2025 2:30 PM EDT Medication Management [facility] [address] [place] [address] Nupur Bullock PharmD [address] [place] [address] 04/26/2025 9:30 AM EDT Office Visit [facility] [address] [place] [address] Shereen Latham MD [address] [place] [address] documented as of this encounter Visit Diagnoses Diagnosis Hypomagnesemia Disorders of magnesium metabolism documented in this encounter Additional Health Concerns Assessment Noted Time PHQ-9 Depression Total Score: 10 023 10:27 AM EDT documented as of this encounter Care Teams Yard Laborer Relationship Specialty Start Date End Date Shereen Latham MD [address] [place] [address] PCP - General Family Medicine 11/02/18 Nupur Bullock PharmD [address] [place] [address] Pharmacist Internal Medicine 08/09/24 Sury Benitez [address] [place] [address] Pulmonary Disease 09/27/24 Nirali Madrid OD [address] [place] [address] Optometry 10/27/24 Li Grande MD [address] [place] [address] Hematology and Oncology 10/27/24 Anselmo Gates MD [address] [place] [address] Orthopaedic Surgery 10/27/24 Margaret Holman [address] [facility] 3rd [place] [address] Cardiology 10/27/24 Herberth Stokes MD 11 [facility] 3rd [place] [address] Gastroenterology 10/27/24 Hilton Palacios MD [address] [facility], [address] [place] [address] Neurology 02/06/25 Aaron Pringle MD 11 [facility] 3rd [place] [address] General Surgery 03/07/25 Pily Delaney Garden Equipment MechanicCorporate Scheduler 07/22/24 Elie Vicky [facility] 12/29/24 documented as of this encounter
--- OUTSIDE RECORDS SUMMARY | 2025-03-16 14:00 | XMS_ITS | Encounter Summary ---
Author Organization [employer] Address [address] [place] [address] 7 [place] [address] Care Team Providers Care Integrated Circuit Ic Layout Designer Name Role Phone Shereen Latham MD Primary Care Provider [phone] Nupur Bullock PharmD Unavailable Sury Benitez Unavailable [phone] Nirali Madrid OD Unavailable Li Grande MD Unavailable [phone] Anselmo Gates MD Unavailable Margaret Holman Unavailable Herberth Stokes MD Unavailable [phone] Hilton Palacios MD Unavailable [phone] Aaron Pringle MD Unavailable [phone] Encounter Details Date Type Department Care Team (Late st Contact Info) Description 11/16/2022 Abstract [facility] [address] [place], [place] [phone] Shereen Latham MD [address] [place], [place] [phone] Social History Tobacco Use Types Packs/Day Years [...] 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 Per Dr. Krish Loomis's note from [facility], pt was due for repeat colposcopy in [...] 04/03/2022. Initially seen 12/2021 for hyperaldosteronism. Labs [facility] 10/2021 aldosterone 8, plasma renin 0.11, aldosterone/renin 72.7. She was likely on spironolactone and lisinopril at time of labs. Advise no spironolactone for 6 weeks and recheck renin aldosterone levels with renal panel and magnesium in business objects developer. 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 -S/p RIGHT mastectomy with sentinel node bx by Dr. Pres[facility] -Adriamycin/Cytoxan based chemotherapy started Oct, completed 4 [...] ultrasound sound for abdominal pain at [facility]. Ultrasound showed diffusely echogenic parenchyma with focal sparing around the gallbladder. No suspicious lesions. Impression showed liver likely representing hepatic steatosis and non- obstructing right kidney stone. documented in this encounter Plan of Treatment Upcoming Encounters Date Type Department Care Team (Late st Contact Info) Description 03/29/2025 2:00 PM EDT Office Visit [facility] [address] [place] [address] Heidi, Jenny [address] [place] [address] 04/25/2025 2:30 PM EDT Medication Management [facility] [address] [place] [address] Nupur Bullock PharmD [address] [place] [address] 04/26/2025 9:30 AM EDT Office Visit [facility] [address] [place] [address] Shereen Latham MD [address] [place] [address] documented as of this encounter Visit Diagnoses Not on filedocumented in this encounter Care Teams Integrated Circuit Ic Layout Designer Relationship Specialty Start Date End Date Shereen Latham MD [address] [place] [address] PCP - General Family Medicine 11/02/18 Nupur Bullock, CharleneD [address] [place] [address] Pharmacist Internal Medicine 08/09/24 Sury Benitez [address] [place] [address] [address] [place] [address] Pulmonary Disease 09/27/24 Nirali Madrid OD [address] [place] [address] Optometry 10/27/24 Li Grande MD [address] [place] [address] Hematology and Oncology 10/27/24 Anselmo Gates MD [address] [place] [address] Drive [address] [place] [address] Orthopaedic Surgery 10/27/24 Margaret Holman [address] 3rd [place] [address] Cardiology 10/27/24 Herberth Stokes MD [address] 3rd [place] [address] Gastroenterology 10/27/24 Hilton Palacios MD [address] [place] [address], [address] [place] [address] Neurology 02/06/25 Aaron Pringle MD 11 [facility] 3rd [place] [address] General Surgery 03/07/25 Pily Delaney Food Service RepresentativePrecision Lens Polisher 07/22/24 Elie V[address] [facility] 12/29/24 documented as of this encounter
--- OUTSIDE RECORDS SUMMARY | 2025-03-16 14:00 | XMS_ITS | Encounter Summary ---
Author Organization [employer] Address [address] [facility] 7 [place] [address] Care Team Providers Care City Tax Auditor Name Role Phone Shereen Latham MD Primary Care Provider [phone] Nupur Bullock PharmD Unavailable Sury Benitez Unavailable [phone] Nirali Madrid OD Unavailable Li Grande MD Unavailable [phone] Anselmo Gates MD Unavailable Margaret Holman Unavailable Herberth Stokes MD Unavailable [phone] Hilton Palacios MD Unavailable Aaron Pringle MD Unavailable [phone] Encounter Details Date Type Department Care Team (Late st Contact Info) Description 10/11/2024 Telephone [facility] [address] [place], [place] [phone] Shereen Latham MD 230 [place], [place] [phone] Social History Tobacco Use Types Packs/Day Years [...] Description 03/29/2025 2:00 PM EDT Office Visit [facility] [address] [place] [address] Jeramie Gordonaris [address] [place] [address] 04/25/2025 2:30 PM EDT Medication Management [facility] [address] [place] [address] Nupur Bullock, PharmD [address] [place] [address] 04/26/2025 9:30 AM EDT Office Visit [facility] [address] [place] [address] Shereen Latham MD 230 [place] [address] documented as of this encounter Visit Diagnoses Not on filedocumented in this encounter Additional Health Concerns Assessment Noted Time PHQ-9 Depression Total Score: 13 024 4:53 PM EDT documented as of this encounter Care Teams City Tax Auditor Relationship Specialty Start Date End Date Shereen Latham MD [address] [place] [address] PCP - General Family Medicine 11/02/18 Nupur Bullock, PharmD [address] [place] [address] Pharmacist Internal Medicine 08/09/24 Sury Benitez [address] [place] [address] [address] Pulmonary Disease 09/27/24 Nirali Madrid OD [address] [place] [address] Optometry 10/27/24 Li Grande MD [address] [place] [address] Hematology and Oncology 10/27/24 Anselmo Gates MD [address] [place] [address] Drive [address] [place] [address] Orthopaedic Surgery 10/27/24 Margaret Holman [address] 3rd [place] [address] Cardiology 10/27/24 Herberth Stokes MD [address] 3rd [place] [address] Gastroenterology 10/27/24 Hilton Palacios MD [address] [place] [address], [address] [place] [address] Neurology 02/06/25 Aaron Pringle MD [address] [place] [address] Drive [address] [place] [address] General Surgery 03/07/25 Pily Delaney Laboratory CourierArtificial Foliage Arranger 07/22/24 Elie Vicky [facility] Psychology 12/29/24 documented as of this encounter
== END ==
LOC: HO.CARD 13:22
PROVIDERS: Visit Provider Nurse Practitioner Family
DX: R00.0 Tachycardia, unspecified (principal)
CPT/HCPCS: 93242; 99212

== ENCOUNTER → 2025-03-16 13:24 | Outpatient (BNV) | payer MEDICAID, SELFPAY | PROVIDERS: Visit Provider Internal Medicine Cardiovascular Disease | DX: R00.0 Tachycardia, unspecified (principal); I49.1 Atrial premature depolarization | CPT/HCPCS: 93227 ==

== ENCOUNTER 2025-03-16 13:55 | Outpatient (AMB) | payer MEDICAID, SELFPAY ==
[2025-03-16 14:19] VITALS: BP 133/88; PULSE 125; BMI 27.4
--- NOTE | 2025-03-16 14:19 | A.OFFVIS_ITS ---
Vital Signs 03/16/25 14:19 Height 5 ft 7 in Weight 175 lb BMI 27.4 BP 133/88 Blood Pressure Location Lt brachial Position Sitting Pulse 125 H Intake Visit Reasons: 1wk fuv stereo bx L brst 3 o'clock density Intake Note: Patient is seen in office for stereo biopsy RESULTS, following left breast density. Pt c/o: denies any concerns, here for results Information Security Manager Required: No Accompanied by: Self / Same As Patient Allergies amoxicillin [AMOXICILLIN] Allergy (Intermediate, Verified 03/16/25 14:20) rash, rash/itching sulfamethoxazole [From BACTRIM] Allergy (Intermediate, Verified 03/16/25 14:20) RASH trimethoprim [From BACTRIM] Allergy (Intermediate, Verified 03/16/25 14:20) RASH hydrocodone [Hydrocodone] Allergy (Mild, Verified 03/16/25 14:20) ITCH ibuprofen [From Motrin] Allergy (Mild, Verified 03/16/25 14:20) UPSET STOMACH latex [Latex] Allergy (Mild, Verified 03/16/25 14:20) ITCH Medication List - Last Reconciled 03/16/25 by Aaron Pringle MD acetaminophen (Tylenol Extra Strength) 500 mg PO Q6H PRN acetaminophen 500 mg PO Q6H PRN [ACL defiance brace n/a] albuterol sulfate 90 mcg/actuation 2 puffs inhalation Q4H PRN albuterol sulfate 2.5 mg (3 mL) inhalation Q4-6H PRN allopurinol 100 mg PO BID cetirizine 10 mg PO DAILY PRN cholecalciferol (vitamin D3) (Vitamin D3) 1 cap PO DAILY fluticasone propion-salmeterol 115-21 mcg/actuation (Advair HFA) 2 puffs inhalation Q12H folic acid 1 tab PO DAILY furosemide 40 mg See Protocol PO DAILY losartan 25 mg See Protocol PO BID magnesium oxide 400 mg PO BIDPC 30 days metoprolol succinate ER 25 mg PO DAILY omeprazole 1 cap PO DAILY@0630 spironolactone 12.5 mg (1/2 x 25 mg) PO QAM 90 days thiamine HCl (vitamin B1) 1 tab PO DAILY HPI Comments Details: 49-year-old female patient presenting with a recent mammogram performed on 02/23/2025 because of pain in the left breast at the upper outer quadrant. This revealed a new focal asymmetry in the central outer breast posterior depth with questioned distortion without sonographic correlate. She has a prior history of a right breast cancer and subsequently underwent mastectomy followed by breast reconstruction. She also underwent chemotherapy but denies radiation therapy. She underwent mastopexy of the left breast. She continues to follow with Dr. Grande for her oncologic follow-up. She reports pain in the outer left breast since the mastopexy. She denies any new palpable masses. Her family history is positive for breast cancer in several cousins. She is 6 para 3 and had her 1st child when she was 19. Her menarche was at the age of 7. She returns today following a left breast stereotactic biopsy performed on 03/08/2025. Pathology revealed a minute focus of atypical ductal hyperplasia, focal gynecomastia like hyperplasia, and predominantly benign breast tissue and adipose. She tolerated the procedure well and denies any ongoing breast symptoms. She does report tachycardia for which she is undergoing a monitor currently. COUNTS INCLUDE 234 BEDS AT THE [facility] Medical History Depression Anxiety and depression Lower back pain History of COVID-19 Uncontrolled hypertension Panic attack H/O ETOH abuse Anxiety History of low potassium Breast cancer Hypertension Surgical History History of carpal tunnel release Hx of tubal ligation History of breast lump/mass excision H/O: hysterectomy Family History Mother Heart disease Alzheimers disease Social History Household Members: None Housing: Apartment Housing Other:: 4th floor. No elevator Are you a primary housekeeper caregiver to a significant other at home: No Do you presently have visiting nurse or other home services: Yes ([employer] twice daily) Alcohol intake: former Comment: 1:1 SI Patient Tobacco Use Status: Current someday Tobacco user Tobacco use type: Cigarette Cigarettes Per Day: 5 Years Smoked: 38YRS e-Cigarette/Vaping Use: Never Used Second Hand Smoke Exposure: Yes Advance Directives Date on File: 02/11/22 service: No Current occupational status: disabled Female Reproductive History Menstrual Age of Menarche: 7 Review of Systems Const All systems reviewed & are unremarkable except as noted in HPI and below Physical Exam Vital Signs: Last Vital Signs Pulse 125 H 03/16/25 14:19 BP 133/88 03/16/25 14:19 BMI result Body Mass Index 27.4 Const General: cooperative and no acute distress Nutritional Appearance: well nourished Orientation/consciousness: patient oriented x3 Limitations: no limitations HEENT Head: Yes normocephalic and Yes atraumatic Ears: hearing grossly normal bilaterally Chest Other: From previous exam: Right breast: Status post right modified radical mastectomy with reconstruction. Palpable implant noted. No overlying skin changes or palpable masses. No enlarged lymph nodes in the right axilla. Left breast: Status post mastopexy. Tenderness noted in the upper outer and lower outer quadrants. No new skin changes, nipple discharge, palpable mass or enlarged lymph nodes. Resp Effort & Inspection: normal respiratory effort, no audible wheezes, no cough and no respiratory distress Cardio Jugular venous distension: no JVD GI Inspection: Yes normal to inspection Skin Other: Warm, dry, no rash Neuro General: patient oriented x3 Extrem General: Yes no clubbing, cyanosis or edema Assessment & Plan Assessment & Plan (1) Atypical ductal hyperplasia of left breast: Code(s): N60.92 - Unspecified benign mammary dysplasia of left breast Category: Medical Plan 49-year-old female patient returning following a recent stereotactic guided core biopsy of the left breast which revealed a minute focus of atypical ductal hyperplasia. Findings were discussed in detail and I recommended a wider excision to assure complete removal. She is currently being evaluated for tachycardia and has a surveillance system monitor in place. I recommended a left breast lumpectomy with localizer and after discussion of the procedure, risks, and alternatives, she consents to the surgery. Coding Level of Care Code Est Pt Level 3 (71560) Diagnoses Atypical ductal hyperplasia of left breast N60.92
--- OUTSIDE RECORDS SUMMARY | 2025-03-16 14:36 | XMS_ITS | Encounter Summary ---
Author Organization [employer] Address [address] [facility] 7 [place] [address] Care Team Providers Care Bioinformatics Research Technician Name Role Phone Shereen Latham MD Primary Care Provider [phone] Nupur Bullock PharmD Unavailable Sury Benitez Unavailable [phone] Nirali Madrid OD Unavailable Li Grande MD Unavailable [phone] Anselmo Gates MD Unavailable Margaret Holman Unavailable Herberth Stokes MD Unavailable [phone] Hilton Palacios MD Unavailable Aaron Prignle MD Unavailable [phone] Reason for Visit * Reason Onset Date Comments Medication Question 07/05/2024 Encounter Details Date Type Department Care Team (Late st Contact Info) Description 07/05/2024 Telephone [facility] [address] [place] [address] Shereen Latham MD [address] [place], [place] [phone] Medication Question Social History Tobacco Use Types [...] is no medication interaction. Contact pt at [phone] documented in this encounter Plan of Treatment Upcoming Encounters Date Type Department Care Team (Late st Contact Info) Description 03/29/2025 2:00 PM EDT Office Visit [facility] [address] [place] [address] Jenny Gordon [address] [place] [address] 04/25/2025 2:30 PM EDT Medication Management [facility] [address] [place] [address] Nupur Bullock, PharmD [address] [place] [address] 04/26/2025 9:30 AM EDT Office Visit [facility] [address] [place] [address] Shereen Latham MD [address] [place] [address] documented as of this encounter Visit Diagnoses Diagnosis Pain Generalized pain documented in this encounter Additional Health Concerns Assessment Noted Time PHQ-9 Depression Total Score: 13 024 4:53 PM EDT documented as of this encounter Care Teams Bioinformatics Research Technician Relationship Specialty Start Date End Date Shereen Latham MD [address] [place] [address] PCP - General Family Medicine 11/02/18 Nupur Bullock, Pushpa [address] [place] [address] Pharmacist Internal Medicine 08/09/24 Sury Benitez [address] [place] [address] [address] [place] [address] Pulmonary Disease 09/27/24 Nirali Madrid OD [address] [place] [address] Optometry 10/27/24 Li Grande MD [address] [place] [address] Hematology and Oncology 10/27/24 Anselmo Gates MD [address] [place] [address] Orthopaedic Surgery 10/27/24 Margaret Holman [address] [facility] [address]rd [place] [address] Cardiology 10/27/24 Herberth Stokes MD [address] [place] [address] Gastroenterology 10/27/24 Hilton Palacios MD [address] [facility], [address] [place] [address] Neurology 02/06/25 Aaron Pringle MD [address] [facility] [address] [place] [address] General Surgery 03/07/25 Pily Delaney [employer] 07/22/24 Elie BRASHER [facility] Psychology 12/29/24 documented as of this encounter
--- OUTSIDE RECORDS SUMMARY | 2025-03-16 14:36 | XMS_ITS | Encounter Summary ---
Author Organization [email or web address] Address [address] [facility] 7 [place] [address] Care Team Providers Care Graduate Rn Name Role Phone Shereen Latham MD Primary Care Provider [phone] Nupur Bullock PharmD Unavailable [phone] Sury Benitez Unavailable [phone] Nirali Madrid OD Unavailable Li Grande MD Unavailable [phone] nAselmo Gates MD Unavailable Margaret Holman Unavailable Herberth Stokes MD Unavailable Hilton Palacios MD Unavailable Aaron Pringle MD Unavailable [phone] Reason for Visit * Reason Onset Date Comments Nurse Triage 01/25/2024 Referral 01/25/2024 Encounter Details Date Type Department Care Team (Late st Contact Info) Description 01/25/2024 Telephone [facility] [address] [place], [place] [phone] Shereen Latham MD [address] [place], [place] [phone] Nurse Triage; Referral Social History Tobacco Use [...] vary. Pt wants to be referred to [address] [place] [address]. Adivsed will send to team to review [...] Description 03/29/2025 2:00 PM EDT Office Visit [facility] [address] [place] [address] Jeramie Gordonaris [address] [place] [address] 04/25/2025 2:30 PM EDT Medication Management [address] [address] Nupur Bullock, Pushpa [address] [place] [address] 04/26/2025 9:30 AM EDT Office Visit [address] [address] Shereen Latham MD [address] [place] [address] documented as of this encounter Visit Diagnoses Not on filedocumented in this encounter Additional Health Concerns Assessment Noted Time PHQ-9 Depression Total Score: 21 023 10:42 AM EST documented as of this encounter Care Teams Graduate Rn Relationship Specialty Start Date End Date Shereen Latham MD [address] [place] [address] PCP - General Family Medicine 11/02/18 Nupur Bullock, Pushpa [address] [place] [address] Pharmacist Internal Medicine 08/09/24 Sury Benitez [address] [place] [address] Pulmonary Disease 09/27/24 Nirali Madrid OD [address] [place] [address] Optometry 10/27/24 Li Grande MD [address] [place] [address] Hematology and Oncology 10/27/24 Anselmo Gates MD [address] [place] [address] Orthopaedic Surgery 10/27/24 Margaret Holman [address] 3rd [place] [address] Cardiology 10/27/24 Herebrth Stokes MD [address]rd [place] [address] Gastroenterology 10/27/24 Hilton Palacios MD [address] [facility] [address] [place] [address] Neurology 02/06/25 Aaron Pringle MD [address] [place] [address] General Surgery 03/07/25 Pily Delaney Harbor PilotSupervisor Sample Preparation 07/22/24 Elie Vicky [facility] 12/29/24 documented as of this encounter
--- OUTSIDE RECORDS SUMMARY | 2025-03-16 14:36 | XMS_ITS | Encounter Summary ---
Author Organization [employer] Address [address] [facility] 7 [place] [address] Care Team Providers Care Buffing Wheel Raker Name Role Phone Shereen Latham MD Primary Care Provider [phone] Nupur Bullock PharmD Unavailable Sury Benitez Unavailable [phone] Nirali Madrid OD Unavailable Li Grande MD Unavailable [phone] Anselmo Gates MD Unavailable Margaret Holman Unavailable Herberth Stokes MD Unavailable [phone] Hilton Palacios MD Unavailable [phone] Aaron Pringle MD Unavailable [phone] Encounter Details Date Type Department Care Team (Late st Contact Info) Description 10/11/2024 Telephone [facility] [address] [place], [place] [phone] Shereen Latham MD [address] [place], [place] [phone] Social History Tobacco Use Types Packs/Day Years [...] Description 03/29/2025 2:00 PM EDT Office Visit [facility] [address] [place] [address] Jeramie Gordonaris [address] [place] [address] 04/25/2025 2:30 PM EDT Medication Management [facility] [address] [place] [address] Nupur Bullock, PharmD [address] [place] [address] 04/26/2025 9:30 AM EDT Office Visit [facility] [address] [place] [address] Shereen Latham MD [address] [place] [address] documented as of this encounter Visit Diagnoses Not on filedocumented in this encounter Additional Health Concerns Assessment Noted Time PHQ-9 Depression Total Score: 13 024 4:53 PM EDT documented as of this encounter Care Teams Buffing Wheel Raker Relationship Specialty Start Date End Date Shereen Latham MD [address] [place] [address] PCP - General Family Medicine 11/02/18 Nupur Bullock, PharmD [address] [place] [address] Pharmacist Internal Medicine 08/09/24 Sury Benitez [address] [place] [address] [place] [address] [address] Pulmonary Disease 09/27/24 Nirali Madrid OD [address] [place] [address] Optometry 10/27/24 Li Grande MD [address] [place] [address] Hematology and Oncology 10/27/24 Anselmo Gates MD [address] [place] [address] Drive [address] [place] [address] Orthopaedic Surgery 10/27/24 Margaret Holman [address] 3rd [place] [address] Cardiology 10/27/24 Herberth Stokes MD [address] 3rd [place] [address] Gastroenterology 10/27/24 Hilton Palacios MD [address] [place] [address], [address] [place] [address] Neurology 02/06/25 Aaron Pringle MD [address] [place] [address] Drive [address] [place] [address] General Surgery 03/07/25 Pily Delaney Speech Lang Path TherapistEducational Programming Director 07/22/24 Elie Vicky [facility] Psychology 12/29/24 documented as of this encounter
--- OUTSIDE RECORDS SUMMARY | 2025-03-16 14:36 | XMS_ITS | Clinical Summary ---
Author Organization [employer] Address [address] [place] [address] 7 [place] [address] Care Team Providers Care Carburetor Repairer Name Role Phone Shereen Latham MD Primary Care Provider [phone] Nupur Bullock PharmD Unavailable Sury Benitez Unavailable [phone] JuliusNirali castellanos OD Unavailable Li Grande MD Unavailable Anselmo Gates MD Unavailable Margaret Holman Unavailable Herberth Stokes MD Unavailable [phone] Hilton Palacios MD Unavailable Aaron Pringle MD Unavailable [phone] Allergies Active Allergy Reactions Criticality Noted [...] at bedtime. 01/21/20 25 Active sodium chloride ([place]) 0.65 % nasal sprayIndication s:Nasal congestion Administer [...] 04/21/24 with uric acid 7.9 -Seen by international specialist Dr. Bernstein 05/11/24 or evaluation of acute gout affecting left foot. -Pt admitted 07/25/24-07/2524 for swelling, pain, and warmth in the right knee. Patient had a low fever (100.3 F) and elevated WBC (89081 cells/uL), CRP, and ESR. Orthopedic surgery consulted [...] reach serum uric acid level <6 mg/dL(2020 [place] [employer] guideline for the management [...] 04/21/24 with uric acid 7.9 -Seen by international specialist Dr. Bernstein 05/11/24 or evaluation of acute gout affecting left foot. -Pt admitted 07/25/24-07/2524 for swelling, pain, and warmth in the right knee. Patient had a low fever (100.3 F) and elevated WBC (46494 cells/uL), CRP, and ESR. Orthopedic surgery consulted [...] reach serum uric acid level <6 mg/dL(2020 [place] [employer] guideline for the management [...] reach serum uric acid level <6 mg/dL(2020 [place] [employer] guideline for the management [...] ON 08/24/2024 9:45 AM BY JOLIE PA [facility] (07/25/2024 - 07/27/2024) Patient presented with swelling, pain, and warmth in the right knee. Patient had a low fever (100.3 F) and elevated WBC (04248 cells/uL), CRP, and ESR. Orthopedic surgery consulted [...] by mouth once daily for 5 days. [facility] ED (08/07/2024) Patient presented [...] breath) 06/29/2024 Overview (12/29/2024): -Followed by [facility] Pulmonology with Sury Benitez NP -02/2024 [...] (12/29/2024 11:03 AM EST): -Followed by [facility] with Sury Benitez NP -02/2024 [...] if needed. -pt reports she saw her furniture salesperson and is continuing management with them. . Assessment & Plan (07/13/2024 2:15 PM EDT): -referred to pulmonology 06/29/24 -Pt reports she has appt to see furniture salesperson 08/01/24 Assessment & Plan (06/29/2024 4:49 PM EDT): -referred to pulmonology 06/29/24 (HFpEF) heart failure with preserved ejection fr action 06/29/2024 Overview (03/02/2025): -Echocardiogram done 10/18/2021 had shown EF 30-35%, mild LVH. She did not come for cardiology follow-up after that finding. A stress test at that time was incomplete. -Dx with acute congestive heart failure with reduced EF during admission to [facility] 06/22/24. - She was started on [...] and indeterminate diastolic function -Seen by [facility] Cardiology 08/01/24 : exercise nuclear stress [...] reduced EF during recent admission to [facility] 06/22/24. Pt was volume overloaded therefore [...] reduced EF during recent admission to [facility] 06/22/24. Pt was volume overloaded therefore [...] with reduced EF during admission to [facility] 06/22/24. - She was started on [...] and indeterminate diastolic function -Seen by [facility] 08/01/24 : exercise nuclear stress [...] with reduced EF during admission to [facility] 06/22/24. 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 [facility] -She is applying [facility] 01/11/2024 -In our [facility] complex care management program -referred to [facility] on 01/04/2024 -Messaged sent to [facility] healthcare account manager for assistance in care visits Assessment & Plan (08/24/2024 9:19 AM EDT): -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 [facility] -Leonora is applying [facility] 01/11/2024 -In our complex care management program -referred to [facility] on 01/04/2024 -Messaged sent to [facility] healthcare account manager for assistance in care visits Assessment & Plan (06/29/2024 4:06 PM EDT): -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. Information given to patient. PLAN: (check [...] for transfusion - Iron infusions ordered by Ice Maker DR. Grande - She recieved two sessions [...] for transfusion - Iron infusions ordered by Ice Maker DR. Grande - She recieved two sessions [...] for transfusion - Iron infusions ordered by Ice Maker DR. Grande - She recieved two sessions [...] for transfusion - Iron infusions ordered by Ice Maker DR. Grande - She recieved two sessions [...] 3 nerves)- 100% relief. Seen by Raj Spnan MD in pain management 03/11/24. She reports [...] lynnelulu back by: Janett Ortega Person calling: [employer] Date:06/16/24 Time: 1218 Saw CDTM on 08/16/24 [...] andread back by: Janett Ortega Person calling: [employer] Date:06/16/24 Time: 1218 Assessment & Plan (07/29/2023 4:34 PM EDT): Received magnesium IV in ER -Dose increased to TID - Recheck in 2 weeks Other specified health status 07/20/2023 Overview (07/11/2024): -next physical exam due after 06/29/25 -eye care facilitated by [facility] -dental home is [facility] -health care proxy filed 06/29/24 Assessment & Plan (06/29/2024 4:03 PM EDT): -next physical exam due after 06/29/25 -eye care facilitated by [facility] -dental home is [facility] -health care proxy given and filed [...] on scene within 10 minutes, transfer completed [facility] ER called with expect [...] had ultrasound sound for abdominal pain at [facility] revealing diffusely echogenic parenchyma with focal [...] had ultrasound sound for abdominal pain at [facility] revealing diffusely echogenic parenchyma with focal [...] had ultrasound sound for abdominal pain at [facility] revealing diffusely echogenic parenchyma with focal [...] had ultrasound sound for abdominal pain at [facility] revealing diffusely echogenic parenchyma with focal [...] had ultrasound sound for abdominal pain at [facility] revealing diffusely echogenic parenchyma with focal [...] had ultrasound sound for abdominal pain at [facility] Ultrasound showed diffusely echogenic parenchyma with focal [...] been [facility] for [facility] and Recovery but has [...] declined -Admitted for alcohol detox at [facility] 04/09/24 -reports she is currently not [...] been referred to [facility] for Support and Recovery but has [...] declined -Admitted for alcohol detox at [facility] 04/09/24 -reports she is currently not [...] been referred to [facility] for Support and Recovery but has [...] declined -Admitted for alcohol detox at [facility] 04/09/24 -reports she is currently not [...] received phenobarb improved her symptoms, patient declined residential life director help to place her in rehab, [...] received phenobarb improved her symptoms, patient declined residential life director help to place her in rehab, [...] with sentinel node bx by Dr. Prescott [facility] -Adriamycin/Cytoxan based chemotherapy started Oct, completed [...] [facility] started Oct, completed 4 [...] maste[facility] with sentinel [facility]/Cytoxan based chemotherapy started Oct, completed 4 [...] with sentinel node bx by Dr. Prescott [facility] -Adriamycin/Cytoxan based chemotherapy started Oct, completed [...] with sentinel node bx by Dr. Prescott [facility] -Adriamycin/Cytoxan based chemotherapy started Oct, completed [...] with sentinel node bx by Dr. Prescott [facility] -Adriamycin/Cytoxan based chemotherapy started Oct, completed [...] with sentinel node bx by Dr. Prescott [facility] -Adriamycin/Cytoxan based chemotherapy started Oct, completed [...] mastectomy with sentinel node [facility]/Cytoxan based chemotherapy started Oct, completed 4 [...] mastectomy with sentinel node [facility]/Cytoxan based chemotherapy started Oct, completed 4 [...] with sentinel node bx by Dr. Prescott [facility] -Adriamycin/Cytoxan based chemotherapy started Oct, completed [...] mastectomy with sentinel node [facility]/Cytoxan based chemotherapy started Oct, completed 4 [...] Overview (06/28/2024): Lab Results Component Value Date [id number] 58.3 06/16/2024 [id number] 106.4 01/04/2024 [id number] 76.8 09/22/2023 Assessment & Plan (06/29/2024 3:39 PM EDT): Lab Results Component Value Date [id number] 58.3 06/16/2024 [id number] 106.4 01/04/2024 [id number] 76.8 09/22/2023 Assessment & Plan (12/14/2023 12:09 PM EST): Lab Results Component Value Date [id number] 76.8 09/22/2023 -Labs ordered for further evaluation: Vitmain D, 25-hydroxy, Total, Immunoassay. 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 Per Dr. 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 Per Dr. 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 Per Dr. 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 Per Dr. Krish Loomis's note from [facility], pt was due for repeat colposcopy [...] Health Integration Plan Internal Follow up with [facility] Patient Self Plan Patient to utilize skills provided in intervention , Patient to reach out to [facility] team as needed, Patient to reach out to [facility] as needed, and will contact [facility] Intake number to connect with skilled nursing OP services, and psychiatrist. Rule Out Diagnoses: [...] as pharmacomtherapy, [facility] smoking cessation group, and [facility] pharmacy smoking cessation clinic Discussed [...] as pharmacomtherapy, [facility] smoking cessation group, and [facility] pharmacy smoking cessation clinic Discussed [...] as pharmacomtherapy, [facility] smoking cessation group, and [facility] pharmacy smoking cessation clinic Discussed [...] as pharmacomtherapy, [facility] smoking cessation group, and [facility] pharmacy smoking cessation clinic Discussed [...] as pharmacomtherapy, [facility] smoking cessation group, and [facility] pharmacy smoking cessation clinic Discussed [...] flare 05/11/2024 12/29/2024 Overview (07/13/2024): Seen by international specialist Dr. Bernstein 05/11/24 or evaluation of acute [...] Plan (07/13/2024 2:21 PM EDT): Seen by international specialist Dr. Bernstein 05/11/24 or evaluation of acute [...] EDT): Patient requesting a Physical for her AUTOMATIC PAD MAKING MACHINE OPERATOR hours to be re-instated. On exam today, her vitals are stable and her exam seems unchanged from previous one. Work up in progress for her c/o bilateral foot pain Hospital discharge follow-up 06/18/2023 07/20/2023 Assessment & Plan (07/14/2023 10:23 AM EDT): Patient here for a HDF. She was admitted to [facility] from 06/05-06/08 . She [...] Hyperaldosteronism 11/16/2022 3 Overview (11/16/2022): Seen by [facility] Endocrinology 04/03/2022. Initially seen 12/2021 for hyperaldosteronism. Labs [facility] 10/2021 aldosterone 8, plasma renin 0.11, aldosterone/renin 72.7. She was likely on spironolactone and lisinopril at time of labs. Advise no spironolactone for 6 weeks and recheck renin aldosterone levels with renal panel and magnesium in supply requirements officer. Assessment & Plan (11/16/2022 10:55 AM EST): Seen by [facility] Endocrinology 04/03/2022. Initially seen 12/2021 for hyperaldosteronism. Labs [facility] 10/2021 aldosterone 8, plasma renin 0.11, aldosterone/renin 72.7. She was likely on spironolactone and lisinopril at time of labs. Advise no spironolactone for 6 weeks and recheck renin aldosterone levels with renal panel and magnesium in supply requirements officer. Anxiety 04/19/2014 01/28/2024 Encounters Date Type Department Care Team Description 03/15/2025 Telephone [facility] MEDICINE [address] [place] [address] Keira Escobar RN Results; Interoffice Coordination 03/08/2025 Orders Only [facility] External Provider, [facility] 03/02/2025 11:15 AM EDT Office [address] [place] [address] Shereen Latham MD Fibromyalgia (Primary Dx); Nasal congestion; History of right breast cancer; Atrial tachycardia ([facility]); Benign essential hypertension 03/02/2025 Telephone [facility] [address] [facility] [place] [address] Shereen Latham MD Lab Orders 03/02/2025 Travel 03/01/2025 Orders Only [facility] MEDICINE [address] [facility] [place] [address] Shereen Latham MD Iron deficiency anemia, unspecified iron deficiency anemia type (Primary Dx); Alcohol use disorder, moderate, dependence (CMS/HCC) 03/01/2025 Orders Only [facility] [address] [facility] [place] [address] Shereen Latham MD Atrial tachycardia ([facility]/HCC) (Primary Dx) 02/24/2025 Telephone [facility] MEDICINE [address] [facility] [place] [address] Shereen Latham MD Lab Orders 02/23/2025 Telephone [facility] [address] [facility] [facility] [place] [address] Shereen Latham MD chartprep 02/15/2025 Refill [facility] [address] [place] [address] Shereen Latham MD Pain 02/13/2025 Telephone [facility] [place] [address] Shereen Latham MD Nurse Triage 02/09/2025 Orders Only [facility] External Provider, [facility] Heart failure with preserved ejection fraction, unspecified HF chronicity (CMS/HCC) (Primary Dx) 01/27/2025 Orders Only [address] [address] Shereen Latham MD History of right breast cancer (Primary Dx) 01/27/2025 Orders Only [address] [address] Shereen Latham MD Hypomagnesemia (Primary Dx) 01/24/2025 1:00 PM EDT Clinical Support [facility] DIABETES/[place] [address] History of chronic CHF (Primary Dx) 01/24/[address] [address] Shereen Latham MD Medication Question 01/24/2025 Travel 01/19/2025 Orders Only [address] [address] Stcaey Khan MD Women's annual routine gynecological examination (Primary Dx) 01/19/2025 Orders Only [address] [address] Stacey Khan MD Breast pain, left (Primary Dx); History of right breast cancer 01/17/2025 3:00 PM EDT Nutrition [facility] DIABETES/[place] [address] History of chronic CHF 01/17/2025 Refill [facility] [address] [place] [address] Shereen Latham MD Pain 01/17/2025 Travel 01/17/2025 Refill [facility] MED [facility] PEDS [address] [place] [address] Mayda Rush MD Pain 01/16/2025 Telephone [facility] MEDICINE [address] [place] [address] Shereen Latham MD Appointment Request 01/13/2025 Population Health Risk Score [facility] (C3) Department [address] [phone] Provider, Population Health Generic 01/12/2025 Refill [facility] [address] [place] [address] Shereen Latham MD Benign essential hypertension 01/09/2025 Refill [facility] MEDICINE [address] [place] [address] Shereen Latham MD Gastroesophageal reflux disease, unspecified whether esophagitis present; Vitamin D deficiency; Nasal congestion 01/03/2025 Telephone [facility] MEDICINE [address] [place] [address] Shereen Latham MD Referral 12/29/2024 10:30 AM EST Office Visit [facility] MEDICINE [address] [place] [address] Shereen Latham MD History of right breast [...] coordination; Tubular adenoma of colon 12/29/2024 Telephone [facility] MEDICINE [address] [place] [address] Shereen Latham MD Results 12/29/2024 Orders Only [facility] MEDICINE [address] [place] [address] Shereen Latham MD Gout, unspecified cause, unspecified chronicity, unspecified site 12/29/2024 Orders Only GENERIC EXTERNAL DATA DEPARTMENT Provider, Generic External Data 12/29/2024 Travel 12/22/2024 Telephone [facility] MEDICINE [address] [place] [address] Shereen Latham MD Durable Medical Equipment; chartprep 12/22/2024 Telephone [facility] MEDICINE [address] [place] [address] Shereen Latham MD Nurse Triage 12/21/2024 3:30 PM EST Telemedicine [facility] MEDICINE [address] [place] [address] Nupur Bullock, CharleneD Preventative health care (Primary Dx) 12/21/2024 Travel 12/21/2024 Refill [facility] MED [facility] PEDS [address] [place] [address] Shereen Latham MD Pain 12/20/2024 Orders Only [facility] External Provider, [facility] from Last 3 Months Immunizations Immunization [...] [facility] ADULT DENTAL [address] [place] [address] Jenny Gordon [address] [place] [address] 04/25/2025 2:30 PM EDT Medication Management [facility] MEDICINE [address] [place] [address] Nupur Bullock, PharmD [address] [place] [address] 04/26/2025 9:30 AM EDT Office Visit [facility] MEDICINE [address] [place] [address] Shereen Latham MD [address] [place] [address] Health Maintenance Due Date Last Done Comments [...] 8 AM EDT 03/08/2025 11:38 AM EDT [facility] LABS - 03/10/2025 1:22 PM EDT ----- ------- Name: Azra Cast ? Age/Sex: 49/F ? : 1975 Unit#: [id number] ?? Attend Dr: Aaron Pringle MD ?Re03/08/25 ?Status: DEP REF ? Location: HO.MAMMO ?Disch: ? ----- ------- SPEC : [id number] ? RECD: 03/08/25 ? STATUS: ??SOUT ? REQ NUM: [id number] ? MAYA: 03/08/25-1057 ? SUBM DR: Cara Rodriges DO ? ENTERED: ??03/08/25 ?SP TYPE: Surgical ? OTHR DR: Shereen Latham MD ?Aaron Pringle MD ORDERED: ??HE Stain/3, Gross Micro L4, ER, IHC, IHC ER/NY/Her2N, CK5-6 ? COMMENTS: As per the specimen [...] ? Age/Sex: 49/F ? : 1975 Unit#: [id number] ?? Attend Dr: Aaron Pringle MD ?Re03/08/25 ?Status: DEP REF ? Location: HO.MAMMO ?Disch: ? ----- ------- SPEC : [id number] ? RECD: 03/08/25 ? STATUS: ??SOUT ? REQ NUM: [id number] ? MAYA: 03/08/25 ? SUBM DR: Cara Rodriges DO ? ENTERED: ??03/08/25 ?SP TYPE: Surgical ? OTHR DR: Shereen Latham MD ?Aaron Pringle MD ORDERED: ??HE Stain/3, Gross Micro L4, ER, IHC, IHC ER/NY/Her2N, CK5-6 ? COMMENTS: As per the specimen requisition slip the specimen is ?collected at 1058 and placed in formalin at 1105. Copies To: ?? Shereen Latham MD ?? [facility] ?? [address] ?? [place] [address] ?? [phone] ?? Aaron Pringle MD ?? [facility] General Surgeons ?? [address] ?? [place] [address] ?? [phone] ?? Cara Rodriges DO ?? [address] ?? [place] [address] ?? [phone] ----- ------- Signed (signature on file) Nilam Merary 03/10/25 1322 ? ----- ------- ? END OF REPORT ? us Generic External Data Provider LAB BLOOD ORDERAB LES Final Result [facility] [address] [facility] [place] [address] [phone] * BI Sterotactic Guided Breast Localization and Biopsy Left (03/08/2025 10:30 AM EDT) Anatomical Region Laterality Modality Breast Left Mammography 03/08/2025 10:3 0 AM EDT Narrative 03/08/2025 11:57 AM EDT ? [facility] [place] [facility] ? [address] ?[place] [address] ?[phone] ? Mammography Report ? Signed with Addenda ? Patient: Cast,Azra ?MR#: [id number] ?? [id number] ? : 1975 ?Acct:[id number] ? Age/Sex: 49 / F ?ADM Date: 03/08/25 ? Loc: HO.MAMMO ? Attending Dr: Aaron Pringle MD ? Ordering Physician: Aaron Pringle MD ?Results: ? Date of Service: 03/08/25 ?Follow Up: ? Procedure(s): MM stereotactic biopsy LT ?? Accession Number(s): [id number] ? cc: Shereen Latham MD; Aaron Pringle [...] ? DD/ 1030 ? TD/TT: 03/08/251114 ? Forming Machine Adjuster: ? Procedure Note Donotuseinterpreter, Image - 03/13/2025 [facility] [address] [place], [place] [address] Mammography Report Signed with Addenda Patient: Maged Cast#: [id number] : 1975Acct:[id number] Age/Sex: 49 / FADM Date: 03/08/25 Loc: HO.MAMMO Attending Dr: Aaron Pringle MD Ordering Physician: Aaron Pringleesults: Date of Service: 03/08/25Follow Up: Procedure(s): MM stereotactic biopsy LT Accession Number(s): [id number] cc: Shereen Latham MD; Aaron Pringle MD [...] 03/08/25 1155 DD/ 1030 TD/TT: 03/08/25 1115 Forming Machine Adjuster: [facility] External Provider IMG BI PROCEDURES Edited Result - Final * Vitamin B12 (Cobalamin) and Folate Panel, Serum (03/02/2025 9:00 AM EDT) Vitamin B12 621 200 - 900 pg/mL [facility] Comment:NORMAL 200-900 PG/ML INDETERMINATE 160-199 PG/ML DEFICIENT < 160 PG/ML Folate 17.2 > or = 4.0 ng/mL [facility] Comment:Reference Values:> o r = 4.0 [...] BLOOD ORDERABLES Final Result Performing Organization Address City/[facility]/ZIP Co de Phone Number [facility] [address] [place] [phone] * TSH with Reflex to Free T4 (03/02/2025 9:00 AM EDT) TSH reflex Free T4 1.34 0.32 - 4.0 uIU/mL [facility] Blood Venous blood specimen / Unknown 03/02/2025 9:00 AM EDT 03/02/2025 11:23 AM EDT Shereen Latham MD LAB BLOOD ORDERABLES Final Result Performing Organization Address City/[facility]/ZIP Co de Phone Number [facility] [address] [place] [address] [phone] * (ABNORMAL) CBC auto differential (03/02/2025 9:00 AM EDT) Only the most recent of2 resultswithin the time period is included. White Blood Count 10.3 4.8 - 10.8 X10*3/uL [facility] Red Blood Count 3.85(L) 4.20 - 5.50 X10*6/uL [facility] Hemoglobin 11.2(L) 12.0 - 16.0 g/dl [facility] Hematocrit 34.4(L) 37.0 - 47.0 % [facility] Mean Corpuscular Volume 89.4 80.0 - 98.0 fL [facility] Mean Corpuscular Hemoglobin 29.1 27.0 - 33.0 pg [facility] Mean Corpuscular HGB Conc 32.6 31.0 - 35.0 g/dl [facility] Red Cell Distribution Width 14.9 11.0 - 16.0 % [facility] Platelet Count 389 160 - 400 X10*3/uL [facility] Mean Platelet Volume 10.9 9.4 - 12.3 fL [facility] Neutrophils Percent Auto 58.9 45 - 73 % [facility] Imm Gran Pct Auto 0.5(H) 0.0 - 0.4 % [facility] Lymphocytes Percent Auto 28.0 20 - 40 % [facility] Monocytes Percent Auto 8.8 2 - 11 % [facility] Eosinophils Percent Auto 2.8 0 - 4 % [facility] Basophils Percent Auto 1.0 0 - 2 % [facility] NRBC Pct Auto 0.0 0.0 - 0.2 /100WBC [facility] Neutrophils Absolute Auto 6.1 2.0 - 8.3 x10*3/uL [facility] Imm Gran Abs Auto 0.05(H) 0.00 - 0.03 X10*3/uL [facility] Lymphocytes Absolute Auto 2.9 1.2 - 4.9 X10*3/uL [facility] Monocytes Absolute Auto 0.9 0.1 - 1.2 X10*3/uL [facility] Eosinophils Absolute Auto 0.3 0.0 - 0.4 X10*3/uL [facility] Basophils Absolute Auto 0.1 0.0 - 0.2 X10*3/uL [facility] NRBC Abs Auto 0.000 0.0 - 0.012 X10*3/uL [facility] Blood Venous blood specimen / Unknown 03/02/2025 9:00 AM EDT 03/02/2025 11:23 AM EDT Shereen Latham MD LAB BLOOD ORDERABLES Final Result Performing Organization Address [facility] de Phone Number [facility] [address] [place] [address] [phone] * Iron And Total Iron Binding Capacity (03/02/2025 9:00 AM EDT) Iron 43 30 - 160 mcg/dL [facility] Total Iron Binding Capacity 262 228 - 428 mcg/dL [facility] Percent Iron Saturation 16 15 - 50 % [facility] Unsaturated Iron Binding 219 ug/dL [facility] Blood Venous blood specimen / Unknown 03/02/2025 9:00 AM EDT 03/02/2025 11:23 AM EDT Shereen Latham MD LAB BLOOD ORDERABLES Final Result Performing Organization Address [facility] de Phone Number [facility] [address] [place] [address] [phone] * Uric acid (03/02/2025 9:00 AM EDT) Only the most recent of2 resultswithin the time period is included. Uric Acid 5.7 2.4 - 5.7 mg/dL [facility] Blood Venous blood specimen / Unknown 03/02/2025 9:00 AM EDT 03/02/2025 11:23 AM EDT Shereen Latham MD LAB BLOOD ORDERABLES Final Result Performing Organization Address [facility] Co de Phone Number [facility] [address] [place] [address] [phone] * Magnesium (03/02/2025 9:00 AM EDT) Only the most recent of3 resultswithin the time period is included. Pathologist [facility] Magnesium 1.8 1.6 - 2.6 mg/dL [facility] Blood Venous blood specimen / Unknown 03/02/2025 9:00 AM EDT 03/02/2025 11:23 AM EDT Shereen Latham MD LAB BLOOD ORDERABLES Final Result Performing Organization Address [facility]/ZIP Co de Phone Number [facility] [address] [place] [address] [phone] * Ferritin (03/02/2025 9:00 AM EDT) Pathologist [facility] Ferritin 144 10 - 250 ng/mL [facility] Blood Venous blood specimen / Unknown 03/02/2025 9:00 AM EDT 03/02/2025 11:23 AM EDT Shereen Latham MD LAB BLOOD ORDERABLES Final Result Performing Organization Address City/[facility] Co de Phone Number [facility] [address] [place] [address] [phone] * Hepatic Function Panel (03/02/2025 9:00 AM EDT) Pathologist [facility] Bilirubin, Total 0.2 0.0 - 1.0 mg/dL [facility] Bilirubin, Direct <0.2 0.0 - 0.5 mg/dL [facility] Aspartate Amino Transferase 19 5 - 31 U/L [facility] Alanine Aminotransferase 19 0 - 31 U/L [facility] Total Protein 7.4 6.5 - 8.0 g/dL [facility] Albumin Level 4.2 3.5 - 5.0 g/dL [facility] Alkaline Phosphatase 111 39 - 117 U/L [facility] Blood Venous blood specimen / Unknown 03/02/2025 9:00 AM EDT 03/02/2025 11:23 AM EDT us Shereen Latham MD LAB BLOOD ORDERABLES Final Result [facility] [address] [place] [address] [phone] * BI US Breast Limited Left (02/23/2025 12:15 PM EDT) Anatomical Region Laterality Modality Breast Left Ultrasound 02/23/2025 12:1 5 PM EDT Narrative 02/23/2025 1:08 PM EDT ? [facility] [place] ? [address] ?[place] [address] ? Ultrasound Report ? Signed ? Patient: Segun,Azra ?MR#: [id number] ?? 3774 ? : 1975 ?Acct:[id number] ? Age/Sex: 49 / F ?ADM Date: 02/23/25 ? Loc: HO.MAMMO ? Attending Dr: Stacey Khan MD ? Ordering Physician: Stacey Khan MD ?? Date of Service: 02/23/25 ?? Procedure(s): US breast LT limited mamm only ?? Accession Number(s): [id number] ? cc: Shereen Latham MD; Stacey Khan [...] BI-RADS breast ?? composition Category b). ?? [place] marker in the upper outer breast area [...] DD/ 1215 ? TD/TT: 02/23/25 1237 ? Forming Machine Adjuster: ? Procedure Note Sumi, Image - 02/23/2025 [facility] [address] [place] [address] [place] [address] Ultrasound Report Signed Patient: Maged Cast#: [id number] : 1975Acct:[id number] Age/Sex: 49 / FADM Date: 02/23/25 Loc: ALBERTO Attending Dr: Stacey Khan MD Ordering Physician: Stacey Khan MD Date of Service: 02/23/25 Procedure(s): US breast LT limited mamm only Accession Number(s): [id number] cc: Shereen Latham MD; Stacey Khan MD [...] density (ACR BI-RADS breast composition Category b). [place] marker in the upper outer breast area [...] 02/23/25 1306 DD/ 1215 TD/TT: 02/23/25 1237 Forming Machine Adjuster: us Stacey Khan MD IMG US PROCEDURES Final Result * BI Mammogram Diagnostic Tomosynthesis Left (02/23/2025 11:40 AM EDT) Anatomical Region Laterality Modality Breast Left Mammography 02/23/2025 11:4 0 AM EDT Narrative 02/23/2025 1:08 PM EDT ? [facility] ? [address] ?[place] [address] ?[phone] ? Mammography Report ? Signed ? Patient: Cast,Azra ?MR#: [id number] ?? 3774 ? : 1975 ?Acct:[id number] ? Age/Sex: 49 / F ?ADM Date: 02/23/ ? Loc: HO.MAMMO ? Attending Dr: Stacey Khan MD ? Ordering Physician: Stacey Khan MD ?Results: 4Suspicio ?? us Finding ? Date of Service: 02/23/ ?Follow Up: Biopsy Recommend ?? ed ? Procedure(s): MM tomosynthesis diagnostic LT ?? Accession Number(s): [id number] ? cc: Shereen Latham MD; Stacey Khan [...] BI-RADS breast ?? composition Category b). ?? [place] marker in the upper outer breast area [...] DD/ 1140 ? TD/TT: 02/23/25 1150 ? Forming Machine Adjuster: ? Procedure Note Donotuseinterpreter, Image - 02/23/2025 [facility] [address] [place], [place] [address] Mammography Report Signed Patient: Maged Cast#: [id number] : 1975Acct:[id number] Age/Sex: 49 / FADM Date: 02/23/25 Loc: HO.MAMMO Attending Dr: Stacey Khan MD Ordering Physician: Stacey Khan MDResults: 4Suspicio us Finding Date of Service: 02/23/25Follow Up: Biopsy Recommend ed Procedure(s): MM tomosynthesis diagnostic LT Accession Number(s): [id number] cc: Shereen Latham MD; Stacey Khan MD [...] density (ACR BI-RADS breast composition Category b). [place] marker in the upper outer breast area [...] 02/23/25 1306 DD/ 1140 TD/TT: 02/23/25 1150 Forming Machine Adjuster: us Stacey Khan MD IMG BI PROCEDURES Final Result * Stress test with myocardial perfusion (02/09/2025 9:30 AM EDT) 02/09/2025 9:30 AM EDT [facility] IMAGING - 02/24/2025 11:11 AM EDT ? [facility] ?[address] ?[place] [address] ?Nuclear Medicine Report ? Signed ? Patient: Azra Cast ?MR#: [id number] ?? 3774 ? : 1975 ?Acct:[id number] ? Age/Sex: 49 / F ?ADM Date: 02/09/25 ? Loc: HO.CARD ? Attending Dr: Margaret ALMANZA ? Ordering Physician: Margaret [place] ?? Date of Service: 02/09/25 ?? Procedure(s): NM cardiolite stress test ?? Accession Number(s): [id number] ? cc: Shereen Latham MD; Margaret [place] [...] DD/ 0930 ? TD/TT: 02/22/25 1215 ? Forming Machine Adjuster: ? Procedure Note Sumi, Gypsy - 02/24/[address] [address] Nuclear Medicine Report Signed Patient: Maged Cast#: [id number] : 1975Acct:[id number] Age/Sex: 49 / FADM Date: 02/09/25 Loc: [place] Attending Dr: Margaret [place] [facility] Ordering Physician: Margaret [place] [facility] Date of Service: 02/09/25 Procedure(s): TN cardiolite stress test Accession Number(s): [id number] cc: Shereen Latham MD; Margaret [place] EXERCISE [...] no clear reversible or fixed perfusion abnormality. NM/TN cardiolite stress test IMPRESSION: 1. Myocardial perfusion [...] 02/24/25 1108 DD/ 0930 TD/TT: 02/22/25 1215 Forming Machine Adjuster: [facility] External Provider CV STRE SS PROCEDURES Edited Result - Final [facility] [address] [place] [address] * D Dimer High Sensitivity (01/19/2025 4:33 PM EDT) [facility] D Dimer High Sensitivity <150 NG/ML [facility] Comment:D-DIMER HS REFERENCE RANGENote: Our assay [...] Organization Address [facility] Co de Phone Number [facility] [address] [place] [phone] * High Sensitivity Troponin I (01/19/2025 4:33 PM EDT) [facility] TROPONIN I HIGH SENSITIVITY 7.8 <3.5 - 17.0 ng/L [facility] Comment:The Henriquez high sens itivity Troponin-I results should beused in conjunction with other diagnostic information suchas ECG, clinical observations and information, and patientsymptoms to aid in the diagnosis of [place]. 01/19/2025 4:33 PM EDT 01/19/2025 4:34 PM EDT us Generic External Data Provider LAB BLOOD ORDERAB LES Final Result Performing Organization Address [facility]/ZIP Co de Phone Number [facility] [address] [place] [address] [phone] * B Type Natriuretic Peptide (BNP) (01/19/2025 4:33 PM EDT) [facility] B Type Natriuretic Peptide 22 <100 pg/mL [facility] 01/19/2025 4:33 PM EDT 01/19/2025 4:34 PM EDT us Generic External Data Provider LAB BLOOD ORDERAB LES Final Result Performing Organization Address City/[facility]/ZIP Co de Phone Number [facility] [address] [place] [phone] * (ABNORMAL) Lipid Panel, Standard (12/29/2024 10:53 AM EST) Triglycerides 192(H) <150 mg/dL [facility] Comment:Desirable Triglyceri de: less than 150 mg/dLBorderline High Triglyceride 150-199 mg/dLHigh Triglyceride: 200-499 mg/dLVery High Triglyceride: greater than or equal to 5OO mg/dL Cholesterol 197 <200 mg/dL [facility] Comment:Desirable Cholestero l: less than 200 mg/dLBorderline High Cholesterol: 200-239 mg/dLHigh Cholesterol: greater than 239 mg/dL LDL Cholesterol Calculated 111(H) <100 mg/dL [facility] Comment:Desirable LDL: less than 100 mg/dLNear Optimal/Above Optimal LDL: 110- 129 mg/dLBorderline High LDL: 130-159 mg/dLHigh LDL: 160-189 mg/dLVery High LDL: greater than or equal to 190 mg/dL HDL Cholesterol 48 >40 mg/dL [facility] Comment:Desirable HDL: great er than 40 mg/dL Note: This HDL assay may give artificially low results in patients with liver disease. Blood Venous blood specimen / Unknown 12/29/2024 10:53 AM EST 12/29/2024 1:06 PM EST us Shereen Latham MD LAB BLOOD ORDERABLES Final Result Performing Organization Address City/[facility]/ZIP Co de Phone Number [facility] [address] [place] [phone] * (ABNORMAL) Basic Metabolic Panel (12/29/2024 10:53 AM EST) Sodium 139 135 - 145 mmol/L [facility] Potassium 4.1 3.3 - 5.1 mmol/L [facility] Chloride 105 96 - 108 mmol/L [facility] Carbon Dioxide 23 22 - 29 mmol/L [facility] Anion Gap 15 12 - 20 [facility] Urea Nitrogen (BUN) 32(H) 9 - 16 mg/dL [facility] Creatinine, Serum 0.91 0.5 - 1.4 mg/dL [facility] Estimated Glomerular Filt Rate >60 [facility] Comment:Chronic Kidney Disea se: Estimated GFR < 60 mL/min/1.99i1Svqkza Kidney Disease: Estimated GFR < 15 mL/min/1.73m2 Glucose 161(H) 60 - 115 mg/dL [facility] Calcium 9.3 8.4 - 10.2 mg/dL [facility] Blood Venous blood specimen / Unknown 12/29/2024 10:53 AM EST 12/29/2024 1:06 PM EST Shereen Latham MD LAB BLOOD ORDERABLES Final Result [facility] [address] [place] [phone] [phone] * XR Knee 1-2 Views Right (12/20/2024 7:45 AM EST) Anatomical Region Laterality Modality Lower Extremities, Knee Right Radiogra phic Imaging 12/20/2024 7:45 AM EST Narrative 12/20/2024 8:20 AM EST ? [facility] ?[address] ?[place] [address] ?XRay Report ? Signed ? Patient: Segun,Azra ?MR#: [id number] ?? 3774 ? : 1975 ?Acct:[id number] ? Age/Sex: 49 / F ?ADM Date: 02/18/25 ? Loc: HO.ED ? Attending Dr: ? Ordering Physician: Boby Dykes MD ?? Date of Service: 12/20/24 ?? Procedure(s): XR knee RT 2V ?? Accession Number(s): [id number] ? cc: Shereen Latham MD; Boby Dykes [...] DD/ 0745 ? TD/TT: 12/20/24 0751 ? Forming Machine Adjuster: ? Procedure Note Sumi, Gypsy - 12/20/2024 [place] [address] XRay Report Signed Patient: Maged Cast#: [id number] : 1975Acct:[id number] Age/Sex: 49 / FADM Date: 12/20/24 Loc: HO.ED Attending Dr: Ordering Physician: Boby Dykes MD Date of Service: 12/20/24 Procedure(s): XR knee RT 2V Accession Number(s): [id number] cc: Shereen Latham MD; Boby Dykes MD [...] 12/20/24 0817 DD/ 0745 TD/TT: 12/20/24 0751 Forming Machine Adjuster: [facility] External Provider IMG XR PROCEDURES Edited Result - Final * (ABNORMAL) Colonoscopy (07/11/2024) Pathologist [facility] Colonoscopy Abnormal( A) Normal Comment:Herberth Stokes MD ?tubular adenoma x 3 Herberth Stokes MD HEALTH MAINTENANCE Final Result * Hepatitis Panel, General (06/16/2024 8:22 AM EDT) Pathologist [facility] Hepatitis A IgM Nonreactive Nonreactive [facility] Comment:IgM antibodies to VIRAMONTES V not detected; does not exclude earlyacute or recovered HAV infection. ~Hepatitis B Surface Antibody REACTIVE Nonreactive [facility] Comment:REACTIVE: > 11.99 mI U/mL Hepatitis B Core Antibody Nonreactive Nonreactive [facility] Hepatitis C Antibody Nonreactive Nonreactive [facility] Comment:Antibodies to HCV no t detected; does not exclude early acuteHCV infection. Hepatitis B Surface Ag Negative Negative [facility] Blood Venous blood specimen / Unknown 06/16/2024 8:22 AM EDT 06/16/2024 11:18 AM EDT Shereen Latham MD LAB BLOOD ORDERABLES Final Result [facility] [address] [place] [phone] * HIV-1/2 Antigen and Antibodies, Fourth Generation, with Reflexes (02/24/2024 8:47 AM EDT) HIV AB/AG Nonreactive Nonreactive [facility] Comment:HIV-1 p24 Ag and/or HIV-1/HIV-2 Ab not detected.A test result that is nonreactive does not exclude thepossibility of exposure to or infection with HIV-1 and/orHIV-2. Nonreactive results in this assay for individualswith prior exposure to HIV-1 and/or HIV-2 may be due toantigen and antibody levels that are below the limit ofdetection of this assay.The [employer] HIV Ag/Ab Combo assay result andsupplemental assay results should be interpreted inconjunction with the patient's clinical presentation,history and other laboratory results. If the results areinconsistent with clinical evidence, additional testing issuggested to confirm the result. Blood Venous blood specimen / Unknown 02/24/2024 8:47 AM EDT 02/24/2024 11:22 AM EDT [facility] LAB BLOOD ORDERABLES Final Resul t Performing Organization Address [facility]/ZIP Co de Phone Number [facility] [address] [place] [phone] * (ABNORMAL) Cologuard?? colon cancer screening (08/27/2023 11:24 AM EDT) Cologuard Result Positive( A) Negative 09/05/2023 10:16 PM EDT [facility] (CLIA #:[id number]) Comment: POSITIVE TEST RESULT. A positive Cologuard [...] Menendez et al, N Engl J Med 2014;370(14):1931-6828.) Cologuard may produce a false negative or false positive result (no colorectal cancer or precancerous polyp present at colonoscopy follow up). A negative Cologuard test result does not guarantee the absence of CRC or advanced adenoma (pre-cancer). The current Cologuard screening interval is every 3 years. ([place] [employer] Society and U.S. Multi-Society Task Force). Cologuard performance data in a 10,000 patient pivotal study using colonoscopy as the reference method can be accessed at the following location: www.[employer]/results. Additional description of the Cologuard test process, warnings and precautions can be found at [email or web address]. Stool specimen (specimen) 08/27/2023 11:24 AM EDT 08/29/2023 6:48 AM EDT Shereen Latham MD LAB MOLECULAR DIAGNOSTICS ORDERABLES Final Result [facility] (CLIA #:[id number]) [address] [place] [address], * HPV mRNA E6/E7 (08/12/2018 10:57 AM EDT) HPV mRNA E6/E7 Not Detected NOT DETECTED [facility] Comment: This test was performed using the APTIMA(R) HPV Assay ([employer] This assay detects E6/E7 viral messenger RNA (mRNA) from 14 high-risk HPV types (16,18,31,33,35,39,45,51, 52,56,58,59,66,68). For additional information please refer to: http://education.Xinguodu/faq/SCY635k6 (This link is being provided for informational/ educational purposes only.) The analytical performance characteristics of this assay have been determined by [employer] [place]. The modifications have not been cleared or approved by the FDA. This assay has been validated pursuant to the CLIA regulations and is used for clinical purposes. Test Performed by [facility], [employer] [facility], [address] [place] [address] Dwaine Morelos M.D., Ph.D., Director of Laboratories , CLIA [id number] Please note: ??Effective 07/14/2016, HPV testing will be performed using [employer]'s APTIMA test which targets mRNA. Detecting mRNA instead of DNA, as in older methods, offers significant improvements in specificity. 08/12/2018 10:5 7 AM EDT us Shereen Latham MD HISTORICAL/NON ORDERABLE L ABS Final Result [facility] [address] from Last 3 Months or Most Recently Relevant to Health Maintenance Insurance [place] STAND AD[place] [facility] STANDARD DENTAL-[facility] MEDICAID STAND ADULT Advance Directives Documents on File Type Date Recorded Patient General Accounting Manager Expl anation Advance Directives and Living Will 07/05/2024 11:59 AM Health Care Proxy Care Teams Carburetor Repairer Relationship Specialty Start Date End Date Shereen Latham MD [address] [place] [address] PCP - General Family Medicine 11/02/18 Nupur Bullock, CharleneD [address] [place] [address] Pharmacist Internal Medicine 08/09/24 Sury Benitez [address] [place] [address] [address] [place] [address] Pulmonary Disease 09/27/24 Nirali Madrid OD [address] [place] [address] Optometry 10/27/24 Li Grande MD [address] [place] [address] Hematology and Oncology 10/27/24 Anselmo Gates MD [address] [facility] [address] [place] [address] Orthopaedic Surgery 10/27/24 Margaret [place] [address] [facility] [address] [place] [address] Cardiology 10/27/24 Herberth Stokes MD [address] [facility] [address] [place] [address] Gastroenterology 10/27/24 Hilton Palacios MD [address] [place] [address], [address] [place] [address] Neurology 02/06/25 Aaron Pringle MD [address] [place] [address] 3[address] [place] [address] General Surgery 03/07/25 Pily Delaney Insert CutterTruss Maker 07/22/24 Elie BRASHER [facility] 12/29/24
--- OUTSIDE RECORDS SUMMARY | 2025-03-16 14:36 | XMS_ITS | Encounter Summary ---
Author Organization [employer] Address [address] [facility] 7 [place] [address] Care Team Providers Care Cut Order Hand Name Role Phone Shereen Latham MD Primary Care Provider +[phone]- [phone] Nupur Bullock PharmD Unavailable Sury Benitez Unavailable [phone] Nirali Madrid OD Unavailable [phone] Li Grande MD Unavailable [phone] Anselmo Gates MD Unavailable Margaret Holman Unavailable Herberth Stokes MD Unavailable [phone] Hilton Palacios MD Unavailable Aaron Pringle MD Unavailable [phone] Encounter Details Date Type Department Care Team (Late st Contact Info) Description 04/26/2024 Orders Only [facility] MEDICINE 230 [place], [place] [phone] Junie Damon MD [address] [place], [place] [phone] Social History Tobacco Use Types Packs/Day Years [...] 03/29/2025 2:00 PM EDT Office Visit [facility] ADULT DENTAL 230 [place] [address] Jeramie Gordonaris 230 [place] [address] 04/25/2025 2:30 PM EDT Medication Management [facility] MEDICINE 230 [place] [address] Nupur Bullock PharmD [address] [place] [address] 04/26/2025 9:30 AM EDT Office Visit [facility] MEDICINE 230 [place] [address] Shereen Latham MD [address] [place] [address] documented as of this encounter Visit Diagnoses Not on filedocumented in this encounter Additional Health Concerns Assessment Noted Time PHQ-9 Depression Total Score: 23 024 1:45 PM EDT documented as of this encounter Care Teams Cut Order Hand Relationship Specialty Start Date End Date Shereen Latham MD [address] [place] [address] PCP - General Family Medicine 11/02/18 Nupur Bullock, CharleneD [address] [place] [address] Pharmacist Internal Medicine 08/09/24 Sury Benitez [address] [place] [address] Dr [facility] 103 [place] [address] Pulmonary Disease 09/27/24 Nirali Madrid OD [address] [place] [address] Optometry 10/27/24 Li Grande MD [address] [place] [address] Hematology and Oncology 10/27/24 Anselmo Gates MD [address] [place] [address] Drive [address] [place] [address] Orthopaedic Surgery 10/27/24 Margaret Holman [address] 3rd [place] [address] Cardiology 10/27/24 Herberth Stokes MD [address] 3rd [place] [address] Gastroenterology 10/27/24 Hilton Palacios MD [address] [place] [address], [address] [place] [address] Neurology 02/06/25 Aaron Pringle MD [address] [facility] [address] 3rd [place] [address] General Surgery 03/07/25 Pily Delaney Emergency Room DoctorDomestic Laundry Worker 07/22/24 Elie Vicky [facility] Psychology 12/29/24 documented as of this encounter
--- OUTSIDE RECORDS SUMMARY | 2025-03-16 14:36 | XMS_ITS | Encounter Summary ---
Author Organization [employer] Address 75 [facility] 7 [place] [address] Care Team Providers Care Air Shovel Operator Name Role Phone Shereen Latham MD Primary Care Provider [phone]- [phone] Nupur Bullock PharmD Unavailable Sury Benitez Unavailable [phone] Nirali Madrid OD Unavailable Li Grande MD Unavailable [phone] Anselmo Gates MD Unavailable Margaret Holman Unavailable Herberth Stokes MD Unavailable [phone] Hilton Palacios MD Unavailable Aaron Pringle MD Unavailable [phone] Reason for Visit * Reason Comments Med Refill Encounter Details Date Type Department Care Team (Late st Contact Info) Description 06/21/2024 Refill [facility] MED & PEDS [address] [place], [place] [phone] Shereen Latham MD 230 [place], [place] [phone] Mild intermittent asthma, unspecified whether complicated; Pain [...] Description 03/29/2025 2:00 PM EDT Office Visit [facility] ADULT DENTAL [address] [place] [address] Heidi, Jenny 230 [place] [address] 04/25/2025 2:30 PM EDT Medication Management [facility] MEDICINE [address] [place] [address] Nupur Bullock PharmD [address] [place] [address] 04/26/2025 9:30 AM EDT Office Visit [facility] MEDICINE [address] [place] [address] Shereen Latham MD [address] [place] [address] documented as of this encounter Visit Diagnoses Diagnosis Mild intermittent asthma, unspecified whether complicated Pain Generalized pain documented in this encounter Additional Health Concerns Assessment Noted Time PHQ-9 Depression Total Score: 13 024 4:53 PM EDT documented as of this encounter Care Teams Air Shovel Operator Relationship Specialty Start Date End Date Shereen Latham MD [address] [place] [address] PCP - General Family Medicine 11/02/18 Nupur Bullock, PharmD [address] [place] [address] Pharmacist Internal Medicine 08/09/24 Sury Benitez [address] [place] [address] [place] [address] [place] [address] Pulmonary Disease 09/27/24 Nirali Madrid OD [address] [place] [address] Optometry 10/27/24 Li Grande MD 575 [place] [address] Hematology and Oncology 10/27/24 Anselmo Gates MD [address] [facility] [address] [place] [address] Orthopaedic Surgery 10/27/24 Margaret Holman [address]rd [place] [address] Cardiology 10/27/24 Herberth Stokes MD 11 [facility] 3rd [place] [address] Gastroenterology 10/27/24 Hilton Palacios MD 15 [facility], [address] [place] [address] Neurology 02/06/25 Aaron Pringle MD 11 [facility] 3rd [place] [address] General Surgery 03/07/25 Pily Delaney Yardage Control OperatorRailroad Police Officer 07/22/24 Elie BRASHER [facility] 12/29/24 documented as of this encounter
--- OUTSIDE RECORDS SUMMARY | 2025-03-16 14:36 | XMS_ITS | Encounter Summary ---
Author Organization [employer] Address 75 [facility] 7 [place] [address] Care Team Providers Care Dress Fitter Name Role Phone Shereen Latham MD Primary Care Provider [phone]- [phone] Nupur Bullock PharmD Unavailable Sury Benitez Unavailable [phone] Nirali Madrid OD Unavailable [phone] Li Grande MD Unavailable [phone] Anselmo Gates MD Unavailable Margaret Holman Unavailable Herberth Stokes MD Unavailable [phone] Hilton Palacios MD Unavailable [phone] Aaron Pringle MD Unavailable [phone] Reason for Visit * Reason Onset Date Comments Medication Question 08/25/2024 Encounter Details Date Type Department Care Team (Late st Contact Info) Description 08/25/2024 Telephone [facility] MEDICINE 230 [place], [place] [phone] Shereen Latham MD 230 [place], [place] [phone] Medication Question Social History Tobacco Use Types [...] any questions you can contact pt at [phone]. documented in this encounter Plan of Treatment Upcoming Encounters Date Type Department Care Team (Late st Contact Info) Description 03/29/2025 2:00 PM EDT Office Visit [facility] ADULT DENTAL 230 [place] [address] Heidi, Jenny 230 [place] [address] 04/25/2025 2:30 PM EDT Medication Management [facility] MEDICINE 230 [place] [address] Nupur Bullock PharmD 230 [place] [address] 04/26/2025 9:30 AM EDT Office Visit [facility] MEDICINE [address] [place] [address] Shereen Latham MD 230 [place] [address] documented as of this encounter Visit Diagnoses Not on filedocumented in this encounter Additional Health Concerns Assessment Noted Time PHQ-9 Depression Total Score: 13 024 4:53 PM EDT documented as of this encounter Care Teams Dress Fitter Relationship Specialty Start Date End Date Shereen Latham MD 230 [place] [address] PCP - General Family Medicine 11/02/18 Nupur Bullock, PharmD [address] [place] [address] Pharmacist Internal Medicine 08/09/24 Sury Benitez [address] [place] [address] [place] [address] [place] [address] Pulmonary Disease 09/27/24 Nirali Madrid OD [address] [place] [address] Optometry 10/27/24 Li Grande MD [address] [place] [address] Hematology and Oncology 10/27/24 Anselmo Gates MD [address] [facility] [address] [place] [address] Orthopaedic Surgery 10/27/24 Margaret Holman [address] [facility] [address]rd [place] [address] Cardiology 10/27/24 Herberth Stokes MD 11 [facility] 3rd [place] [address] Gastroenterology 10/27/24 Hilton Palacios MD 15 [facility], [address] [place] [address] Neurology 02/06/25 Aaron Pringle MD 11 [facility] 3rd [place] [address] General Surgery 03/07/25 Pily Delaney Upholstery RestorerHealth And Wellness Director 07/22/24 Elie Vicky [facility] Psychology 12/29/24 documented as of this encounter
--- OUTSIDE RECORDS SUMMARY | 2025-03-16 14:36 | XMS_ITS | Encounter Summary ---
Author Organization [employer] Address 75 [facility] 7 [place] [address] Care Team Providers Care Hackler Doll Wigs Name Role Phone Shereen Latham MD Primary Care Provider [phone]- [phone] Nupur Bullock PharmD Unavailable [phone] Sury Benitez Unavailable [phone] Nirali Madrid OD Unavailable Li Grande MD Unavailable [phone] Anselmo Gates MD Unavailable Margaret Holman Unavailable Herberth Stokes MD Unavailable [phone] Hilton Palacios MD Unavailable [phone] Aaron Pringle MD Unavailable [phone] Encounter Details Date Type Department Care Team (Late st Contact Info) Description 05/02/2024 Orders Only [facility] MEDICINE 230 [place], [place] [phone] Shereen Latham MD 230 [place], [place] [phone] Gout, unspecified cause, unspecified chronicity, unspecified site [...] Description 03/29/2025 2:00 PM EDT Office Visit [facility] ADULT DENTAL 230 [place] [address] Jenny Gordon 230 [place] [address] 04/25/2025 2:30 PM EDT Medication Management [facility] MEDICINE [address] [place] [address] Nupur Bullock PharmD 230 [place] [address] 04/26/2025 9:30 AM EDT Office Visit [facility] MEDICINE [address] [place] [address] Shereen Latham MD 230 [place] [address] documented as of this encounter Visit Diagnoses Diagnosis Gout, unspecified cause, unspecified chronicity, unspecified site- Primary documented in this encounter Additional Health Concerns Assessment Noted Time PHQ-9 Depression Total Score: 23 024 1:45 PM EDT documented as of this encounter Care Teams Hackler Doll Wigs Relationship Specialty Start Date End Date Shereen Latham MD 230 [place] [address] PCP - General Family Medicine 11/02/18 Nupur Bullock PharmD [address] [place] [address] Pharmacist Internal Medicine 08/09/24 Sury Benitez [address] [place] [address] Dr [address] [place] [address] Pulmonary Disease 09/27/24 Nirali Madrid OD 267 [place] [address] Optometry 10/27/24 Li Grande MD [address] [place] [address] Hematology and Oncology 10/27/24 Anselmo Gates MD [address] [place] [address] Orthopaedic Surgery 10/27/24 Margaret Holman [address] 3rd [place] [address] Cardiology 10/27/24 Herberth Stokes MD [address] [facility] [address] 3rd [place] [address] Gastroenterology 10/27/24 Hilton Palacios MD 15 [facility], [address] [place] [address] Neurology 02/06/25 Aaron Prinlge MD [address] [facility] [address] 3rd [place] [address] General Surgery 03/07/25 Pily Delaney Cake WinderCompressor Stations Superintendent 07/22/24 Elie BRASHER [facility] 12/29/24 documented as of this encounter
--- OUTSIDE RECORDS SUMMARY | 2025-03-16 14:36 | XMS_ITS | Encounter Summary ---
Author Organization [employer] Address 75 [facility] 7 [place] [address] Care Team Providers Care Swim Coach Name Role Phone Shereen Latham MD Primary Care Provider [phone]- [phone] Nupur Bullock PharmD Unavailable Sury Benitez Unavailable [phone] Nirali Madrid OD Unavailable Li Grande MD Unavailable [phone] Anselmo Gates MD Unavailable Margaret Holman Unavailable Herberth Stokes MD Unavailable Hilton Palacios MD Unavailable [phone] Aaron Pringle MD Unavailable [phone] Encounter Details Date Type Department Care Team (Late st Contact Info) Description 10/22/2023 Orders Only [facility] MEDICINE 230 [place], [place] [phone] Shereen Latham MD 230 [place], [place] [phone] Vitamin D deficiency Social History Tobacco Use [...] Description 03/29/2025 2:00 PM EDT Office Visit [facility] ADULT DENTAL [address] [place] [address] Heidi Jenny 230 [place] [address] 04/25/2025 2:30 PM EDT Medication Management [facility] MEDICINE [address] [place] [address] Nupur Bullock PharmD [address] [place] [address] 04/26/2025 9:30 AM EDT Office Visit [facility] MEDICINE [address] [place] [address] Shereen Latham MD [address] [place] [address] documented as of this encounter Visit Diagnoses Diagnosis Vitamin D deficiency documented in this encounter Additional Health Concerns Assessment Noted Time PHQ-9 Depression Total Score: 21 023 10:42 AM EST documented as of this encounter Care Teams Swim Coach Relationship Specialty Start Date End Date Shereen Latham MD [address] [place] [address] PCP - General Family Medicine 11/02/18 Nupur Bullock, PharmD [address] [place] [address] Pharmacist Internal Medicine 08/09/24 Pedro Benitezie 10 [facility] [address] [place] [address] Pulmonary Disease 09/27/24 Nirali Madrid OD [address] [place] [address] Optometry 10/27/24 Li Grande MD [address] [place] [address] Hematology and Oncology 10/27/24 Anselmo Gates MD 10 [facility] [address] [place] [address] Orthopaedic Surgery 10/27/24 Margaret Holman 11 [facility] 3rd [place] [address] Cardiology 10/27/24 Herberth Stokes MD 11 [facility] 3rd [place] [address] Gastroenterology 10/27/24 Hilton Palacios MD 15 [facility], [address] [place] [address] Neurology 02/06/25 Aaron Pringle MD 11 [facility] 3rd [place] [address] General Surgery 03/07/25 Pily Delaney Insurance Office ManagerCounty Program Technician 07/22/24 Elie Vicky [facility] 12/29/24 documented as of this encounter
--- OUTSIDE RECORDS SUMMARY | 2025-03-16 14:36 | XMS_ITS | Encounter Summary ---
Author Organization [employer] Address [address] [place] [address] 7 [place] [address] Care Team Providers Care Psychiatry Teacher Name Role Phone Shereen Latham MD Primary Care Provider [phone] Nupur Bullock PharmD Unavailable [phone] Sury Benitez Unavailable [phone] Nirali Madrid OD Unavailable Li Grande MD Unavailable [phone] Anselmo Gates MD Unavailable Margaret Holman Unavailable Herberth Stokes MD Unavailable [phone] Hilton Palacios MD Unavailable [phone] Aaron Pringle MD Unavailable [phone] Encounter Details Date Type Department Care Team (Late st Contact Info) Description 07/27/2023 Orders Only [facility] MEDICINE 230 [place], [place] [phone] Shereen Latham MD 230 [place], [place] [phone] Hypomagnesemia Social History Tobacco Use Types Packs/Day [...] Office Visit [facility] ADULT DENTAL [address] [place] [address] Heidi, Jenny 230 [place] [address] 04/25/2025 2:30 PM EDT Medication Management [facility] MEDICINE [address] [place] [address] Nupur Bullock PharmD [address] [place] [address] 04/26/2025 9:30 AM EDT Office Visit [facility] MEDICINE [address] [place] [address] Shereen Latham MD [address] [place] [address] documented as of this encounter Visit Diagnoses Diagnosis Hypomagnesemia Disorders of magnesium metabolism documented in this encounter Additional Health Concerns Assessment Noted Time PHQ-9 Depression Total Score: 10 023 10:27 AM EDT documented as of this encounter Care Teams Psychiatry Teacher Relationship Specialty Start Date End Date Shereen Latham MD [address] [place] [address] PCP - General Family Medicine 11/02/18 Nupur Bullock PharmD [address] [place] [address] Pharmacist Internal Medicine 08/09/24 Sury Benitez [address] [place] [address] Pulmonary Disease 09/27/24 Nirali Madrid OD 267 [place] [address] Optometry 10/27/24 Li Grande MD [address] [place] [address] Hematology and Oncology 10/27/24 Anselmo Gates MD [address] [facility] [address] [place] [address] Orthopaedic Surgery 10/27/24 Margaret Holman 11 [facility] 3rd [place] [address] Cardiology 10/27/24 Herberth Stokes MD 11 [facility] 3rd [place] [address] Gastroenterology 10/27/24 Hilton Palacios MD 15 [facility], [address] [place] [address] Neurology 02/06/25 Aaron Pringle MD 11 [facility] 3rd [place] [address] General Surgery 03/07/25 Pily Delaney Exhibit ArtistAgent Broker 07/22/24 Elie Vicky [facility] 12/29/24 documented as of this encounter
--- OUTSIDE RECORDS SUMMARY | 2025-03-16 14:36 | XMS_ITS | Encounter Summary ---
Author Organization [employer] Address 75 [facility] 7 [place] [address] Care Team Providers Care Regional Account Manager Name Role Phone Shereen Latham MD Primary Care Provider [phone] Nupur Bullock PharmD Unavailable Sury Benitez Unavailable [phone] Nirali Madrid OD Unavailable Li Grande MD Unavailable [phone] Anselmo Gates MD Unavailable Margaret Holman Unavailable Herberth Stokes MD Unavailable [phone] Hilton Palacios MD Unavailable Aaron Pringle MD Unavailable [phone] Reason for Visit * Reason Onset Date Comments Nurse Triage 02/13/2025 Encounter Details Date Type Department Care Team (Late st Contact Info) Description 02/13/2025 Telephone [facility] MEDICINE 230 [place], [place] [phone] Shereen Latham MD 230 [place], [place] [phone] Nurse Triage Social History Tobacco Use Types [...] Description 03/29/2025 2:00 PM EDT Office Visit [facility] ADULT DENTAL 230 [place] [address] Jeramie Gordonaris 230 [place] [address] 04/25/2025 2:30 PM EDT Medication Management [facility] MEDICINE 230 [place] [address] Nupur Bullock, CharleneD 230 [place] [address] 04/26/2025 9:30 AM EDT Office Visit [facility] MEDICINE 230 [place] [address] Shereen Latham MD 230 [place] [address] documented as of this encounter Visit Diagnoses Not on filedocumented in this encounter Additional Health Concerns Assessment Noted Time PHQ-9 Depression Total Score: 22 025 10:17 AM EST documented as of this encounter Care Teams Regional Account Manager Relationship Specialty Start Date End Date Shereen Latham MD 230 [place] [address] PCP - General Family Medicine 11/02/18 Nupur Bullock PharmD [address] [place] [address] Pharmacist Internal Medicine 08/09/24 Sury Benitez [address] [place] [address] Dr [facility] 103 [place] [address] Pulmonary Disease 09/27/24 Nirali Madrid OD [address] [place] [address] Optometry 10/27/24 Li Grande MD [address] [place] [address] Hematology and Oncology 10/27/24 Anselmo Gates MD 10 [facility] 203 [place] [address] Orthopaedic Surgery 10/27/24 Margaret Holman 11 [facility] 3rd [place] [address] Cardiology 10/27/24 Herberth Stokes MD 11 [facility] 3rd [place] [address] Gastroenterology 10/27/24 Hilton Palacios MD [address] [place] [address] DR, [address] [place] [phone] Neurology 02/06/25 Aaron Pringle MD [address] [place] [address] Drive 3rd [place] [address] General Surgery 03/07/25 Pily Delaney Adult Daycare CoordinatorElderly Caregiver 07/22/24 Elie BRASHER [facility] Psychology 12/29/24 documented as of this encounter
--- OUTSIDE RECORDS SUMMARY | 2025-03-16 14:36 | XMS_ITS | Encounter Summary ---
Author Organization [employer] Address 75 [facility] 7t [place] [address] Care Team Providers Care Associate Entertainment Editor Name Role Phone Shereen Latham MD Primary Care Provider [phone] Nupur Bullock PharmD Unavailable [phone] Sury Benitez Unavailable [phone] Nirali Madrid OD Unavailable Li Grande MD Unavailable Anselmo Gates MD Unavailable Margaret Holman Unavailable Herberth Stokes MD Unavailable [phone] Hilton Palacios MD Unavailable Aaron Pringle MD Unavailable [phone] Encounter Details Date Type Department Care Team (Latest Contact Info) Description 08/16/2021 Abstract [facility] CONVERSIONS Dental, Provider, DDS Social History [...] Description 03/29/2025 2:00 PM EDT Office Visit [facility] ADULT DENTAL [address] [place] [address] Heidi, Jenny 230 [place] [address] 04/25/2025 2:30 PM EDT Medication Management [facility] MEDICINE [address] [place] [address] Nupur Bullock, PharmD [address] [place] [address] 04/26/2025 9:30 AM EDT Office Visit [facility] MEDICINE [address] [place] [address] Shereen Latham MD [address] [place] [address] documented as of this encounter Visit Diagnoses Not on filedocumented in this encounter Care Teams Associate Entertainment Editor Relationship Specialty Start Date End Date Shereen Latham MD [address] [place] [address] PCP - General Family Medicine 11/02/18 Nupur Bullock, Pushpa [address] [place] [address] Pharmacist Internal Medicine 08/09/24 Sury Benitez [address] [place] [address] Pulmonary Disease 09/27/24 Nirali Madrid OD [address] [place] [address] Optometry 10/27/24 Li Grande MD [address] [place] [address] Hematology and Oncology 10/27/24 Anselmo Gates MD [address] [place] [address] Orthopaedic Surgery 10/27/24 Margaret Holman [address] 3rd [place] [address] Cardiology 10/27/24 Herberth Stokes MD [address] 3rd [place] [address] Gastroenterology 10/27/24 Hilton Palacios MD [address] [facility] [address] [place] [address] Neurology 02/06/25 Aaron Pringle MD [address]rd [place] [address] General Surgery 03/07/25 Pily Delaney Strap SewerFurniture Salesperson 07/22/24 Elie iVcky [facility] 12/29/24 documented as of this encounter
--- OUTSIDE RECORDS SUMMARY | 2025-03-16 14:36 | XMS_ITS | Encounter Summary ---
Author Organization [employer] Address [address] [facility] 7t [place] [address] Care Team Providers Care Ring Rolling Machine Operator Name Role Phone Shereen Latham MD Primary Care Provider [phone] Nupur Bullock PharmD Unavailable [phone] Sury Benitez Unavailable [phone] Nirali Madrid OD Unavailable Li Grande MD Unavailable Anselmo Gates MD Unavailable Margaret Holman Unavailable Herberth Stokes MD Unavailable [phone] Hilton Palacios MD Unavailable Aaron Pringle MD Unavailable [phone] Encounter Details Date Type Department Care Team (Latest Contact Info) Description 07/06/2019 Abstract [facility] CONVERSIONS Dental, Provider, DDS Social History [...] 2:00 PM EDT Office Visit [facility] ADULT DENTAL [address] [place] [address] Jeramie Gordonaris 230 [place] [address] 04/25/2025 2:30 PM EDT Medication Management [facility] MEDICINE [address] [place] [address] Nupur Bullock, PharmD 230 [place] [address] 04/26/2025 9:30 AM EDT Office Visit [facility] MEDICINE [address] [place] [address] Shereen Latham MD [address] [place] [address] documented as of this encounter Visit Diagnoses Not on filedocumented in this encounter Care Teams Ring Rolling Machine Operator Relationship Specialty Start Date End Date Shereen Latham MD [address] [place] [address] PCP - General Family Medicine 11/02/18 Nupur Bullock, CharleneD [address] [place] [address] Pharmacist Internal Medicine 08/09/24 Sury Benitez [address] [place] [address] Pulmonary Disease 09/27/24 Nirali Madrid OD [address] [place] [address] Optometry 10/27/24 Li Grande MD [address] [place] [address] Hematology and Oncology 10/27/24 Anselmo Gates MD [address] [place] [address] Orthopaedic Surgery 10/27/24 Margaret Holman [address] 3rd [place] [address] Cardiology 10/27/24 Herberth Stokes MD [address] 3rd [place] [address] Gastroenterology 10/27/24 Hilton Palacios MD [address] [address] [place] [address] Neurology 02/06/25 Aaron Pringle MD [address]rd [place] [address] General Surgery 03/07/25 Pily Delaney Scale Reclamation TenderCane Weigher 07/22/24 Elie Vicky [facility] 12/29/24 documented as of this encounter
--- OUTSIDE RECORDS SUMMARY | 2025-03-16 14:36 | XMS_ITS | Encounter Summary ---
Author Organization [employer] Address [address] [place] [address] 7 [place] [address] Care Team Providers Care Photographic Equipment Assembler Name Role Phone Shereen Latham MD Primary Care Provider [phone]- [phone] Nupur Bullock PharmD Unavailable Sury Benitez Unavailable [phone] Nirali Madrid OD Unavailable Li Grande MD Unavailable [phone] Anselmo Gates MD Unavailable Margaret Holman Unavailable Herberth Stokes MD Unavailable [phone] Hilton Palacios MD Unavailable Aaron Pringle MD Unavailable [phone] Encounter Details Date Type Department Care Team (Late st Contact Info) Description 11/16/2022 Abstract [facility] MEDICINE 230 [place], [place] [phone] Shereen Latham MD 230 [place], [place] [phone] Social History Tobacco Use Types Packs/Day Years [...] 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 Per Dr. Krish Loomis's note from [facility] SHOWROOM CONSULTANT, pt was due for repeat colposcopy [...] Problem(s): Hyperaldosteronism (CMS/HCC) (Resolved 07/29/2023) Seen by [facility] Endocrinology 04/03/2022. Initially seen 12/2021 for hyperaldosteronism. Labs [facility] 10/2021 aldosterone 8, plasma renin 0.11, aldosterone/renin 72.7. She was likely on spironolactone and lisinopril at time of labs. Advise no spironolactone for 6 weeks and recheck renin aldosterone levels with renal panel and magnesium in irrigation equipment remover. 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 [...] had ultrasound sound for abdominal pain at [facility]. Ultrasound showed diffusely echogenic parenchyma with focal sparing around the gallbladder. No suspicious lesions. Impression showed liver likely representing hepatic steatosis and non- obstructing right kidney stone. documented in this encounter Plan of Treatment Upcoming Encounters Date Type Department Care Team (Late st Contact Info) Description 03/29/2025 2:00 PM EDT Office Visit [facility] ADULT DENTAL 230 [place] [address] Heidi, Jenny [address] [place] [address] 04/25/2025 2:30 PM EDT Medication Management [facility] MEDICINE [address] [place] [address] Nupur Bullock PharmD [address] [place] [address] 04/26/2025 9:30 AM EDT Office Visit [facility] MEDICINE [address] [place] [address] Shereen Latham MD 230 [place] [address] documented as of this encounter Visit Diagnoses Not on filedocumented in this encounter Care Teams Photographic Equipment Assembler Relationship Specialty Start Date End Date Shereen Latham MD [address] [place] [address] PCP - General Family Medicine 11/02/18 Nupur Bullock, CharleneD [address] [place] [address] Pharmacist Internal Medicine 08/09/24 Sury Benitez [address] [place] [address] [address] [place] [address] Pulmonary Disease 09/27/24 Nirali Madrid OD [address] [place] [address] Optometry 10/27/24 Li Grande MD [address] [place] [address] Hematology and Oncology 10/27/24 Anselmo Gates MD [address] [place] [address] Drive [address] [place] [address] Orthopaedic Surgery 10/27/[address] [facility] [address] 3rd [place] [address] Cardiology 10/27/24 Herberth Stokes MD [address] [facility] [address] 3rd [place] [address] Gastroenterology 10/27/24 Hilton Palacios MD [address] [place] [address], [address] [place] [address] Neurology 02/06/25 Aaron Pringle MD [address] [facility] 3rd [place] [address] General Surgery 03/07/25 Pily Delaney Predictive Maintenance SpecialistVessel Engineer 07/22/24 Elie Vicky [facility] 12/29/24 documented as of this encounter
--- OUTSIDE RECORDS SUMMARY | 2025-03-16 14:36 | XMS_ITS | Encounter Summary ---
Author Organization [employer] Address [address] [facility] 7 [place] [address] Care Team Providers Care Personnel Research Scientist Name Role Phone Shereen Latham MD Primary Care Provider [phone]- [phone] Nupur Bullock PharmD Unavailable Sury Benitez Unavailable [phone] Nirali Madrid OD Unavailable Li Grande MD Unavailable [phone] Anselmo Gates MD Unavailable Margaret Holman Unavailable Herberth Stokes MD Unavailable [phone] Hilton Palacios MD Unavailable Aaron Pringle MD Unavailable [phone] Reason for Visit * Reason Onset Date Comments Nurse Triage 05/25/2024 Encounter Details Date Type Department Care Team (Late st Contact Info) Description 05/25/2024 Telephone [facility] MEDICINE 230 [place], [place] [phone] Shereen Latham MD 230 [place], [place] [phone] Nurse Triage Social History Tobacco Use Types [...] . Pt reports Pt was seen in [facility] 05/11/24 for continued leftfoot pain and Pt was seen by plant machinist, Leta Lunsford MD 05/11/24 also (report is on the chart). Pt had been advised to stop BP med chlorthalidone per plant machinist [facility] because that particular medication is known to [...] anxiety. Pt is advised to come to [facility] today , open till 8pm, [...] Description 03/29/2025 2:00 PM EDT Office Visit [facility] ADULT DENTAL 230 [place] [address] Heidi, Jenny 230 [place] [address] 04/25/2025 2:30 PM EDT Medication Management [facility] MEDICINE 230 [place] [address] Nupur Bullock, Pushpa 230 [place] [address] 04/26/2025 9:30 AM EDT Office Visit [facility] MEDICINE [address] [place] [address] Shereen Latham MD [address] [place] [address] documented as of this encounter Visit Diagnoses Not on filedocumented in this encounter Additional Health Concerns Assessment Noted Time PHQ-9 Depression Total Score: 22 024 9:12 AM EDT documented as of this encounter Care Teams Personnel Research Scientist Relationship Specialty Start Date End Date Shereen Latham MD [address] [place] [address] PCP - General Family Medicine 11/02/18 Nupur Bullock, CharleneD [address] [place] [address] Pharmacist Internal Medicine 08/09/24 Sury Benitez [address] [place] [address] [place] [address] [place] [address] Pulmonary Disease 09/27/24 Nirali Madrid OD [address] [place] [address] Optometry 10/27/24 Li Grande MD [address] [place] [address] Hematology and Oncology 10/27/24 Anselmo Gates MD [address] [place] [address] Orthopaedic Surgery 10/27/24 Margaret Holman [address] [place] [address] Cardiology 10/27/24 Herberth Stokes MD [address]rd [place] [address] Gastroenterology 10/27/24 Hilton Palacios MD [address] [place] [address], [address] [place] [address] Neurology 02/06/25 Aaron Pringle MD 11 [facility] 3rd [place] [address] General Surgery 03/07/25 Pily Delaney Pipeline Superintendent DivisionDisability Hearing Officer 07/22/24 Elie Vicky [facility] 12/29/24 documented as of this encounter
--- OUTSIDE RECORDS SUMMARY | 2025-03-16 14:36 | XMS_ITS | Encounter Summary ---
Author Organization [employer] Address [address] [place] [address] 7 [place] [address] Care Team Providers Care Logistics System Engineer Name Role Phone Shereen Latham MD Primary Care Provider [phone] Nupur Bullock PharmD Unavailable Sury Benitez Unavailable [phone] Nirail Madrid OD Unavailable Li Grande MD Unavailable [phone] Anselmo Gates MD Unavailable Margaret Holman Unavailable Herberth Stokes MD Unavailable [phone] Hilton Palacios MD Unavailable [phone] Aaron Pringle MD Unavailable [phone] Reason for Visit * Reason Comments Med Refill Encounter Details Date Type Department Care Team (Late st Contact Info) Description 12/02/2022 Refill [facility] MEDICINE 230 [place], [place] [phone] Shereen Latham MD 230 [place], [place] [phone] Wheeze (Primary Dx); Pain Social History Tobacco [...] Office Visit [facility] ADULT DENTAL 230 [place] [address] Heidi, Jenny 230 [place] [address] 04/25/2025 2:30 PM EDT Medication Management [facility] MEDICINE [address] [place] [address] Nupur Bullock PharmD 230 [place] [address] 04/26/2025 9:30 AM EDT Office Visit [facility] MEDICINE [address] [place] [address] Shereen Latham MD 230 [place] [address] documented as of this encounter Visit Diagnoses Diagnosis Wheeze- Primary Wheezing Pain Generalized pain documented in this encounter Care Teams Logistics System Engineer Relationship Specialty Start Date End Date Shereen Latham MD [address] [place] [address] PCP - General Family Medicine 11/02/18 Nupur Bullock, PharmD [address] [place] [address] Pharmacist Internal Medicine 08/09/24 Sury Benitez [address] [place] [address] [place] [address] [place] [address] Pulmonary Disease 09/27/24 Nirali Madrid OD [address] [place] [address] Optometry 10/27/24 Li Grande MD 575 [place] [address] Hematology and Oncology 10/27/24 Anselmo Gates MD [address] [facility] [address] [place] [address] Orthopaedic Surgery 10/27/24 Margaret Holman [address]rd [place] [address] Cardiology 10/27/24 Herberth Stokes MD [address] [facility] 3rd [place] [address] Gastroenterology 10/27/24 Hilton Palacios MD [address] [facility] [place] [address] Neurology 02/06/25 Aaron Pringle MD [address] [facility] 3rd [place] [address] General Surgery 03/07/25 Pily Delaney Air Brake ManRock Room Worker 07/22/24 Elie BRASHER [facility] 12/29/24 documented as of this encounter
--- OUTSIDE RECORDS SUMMARY | 2025-03-16 14:37 | XMS_ITS | Encounter Summary ---
Author Organization [employer] Address [address] [facility] 7 [place] [address] Care Team Providers Care Fire Control Assistant Name Role Phone Shereen Latham MD Primary Care Provider [phone] Nupur Bullock PharmD Unavailable Sury Benitez Unavailable [phone] Nirali Madrid OD Unavailable Li Grande MD Unavailable [phone] Anselmo Gates MD Unavailable Margaret Holman Unavailable Herberth Stokes MD Unavailable [phone] Hilton Palacios MD Unavailable Aaron Pringle MD Unavailable [phone] Reason for Visit * Reason Onset Date Comments ER Follow-up 12/07/2024 Encounter Details Date Type Department Care Team (Late st Contact Info) Description 12/07/2024 Telephone [facility] MEDICINE 230 [place], [place] [phone] Shereen Latham MD 230 [place], [place] [phone] ER Follow-up Social History Tobacco Use Types [...] TC placed to pt to f/u on [facility] ED visit on 12/06/2024 for right lower [...] ED visit on : Date: 12/06/24 Hospital: [facility] Seen for: Flu Patient advised will forward to team nurse for follow up documented in this encounter Plan of Treatment Upcoming Encounters Date Type Department Care Team (Late st Contact Info) Description 03/29/2025 2:00 PM EDT Office Visit [facility] ADULT DENTAL 230 [place] [address] Heidi, Jenny 230 [place] [address] 04/25/2025 2:30 PM EDT Medication Management [facility] MEDICINE [address] [place] [address] Nupur Bullock, PharmD 230 [place] [address] 04/26/2025 9:30 AM EDT Office Visit [facility] MEDICINE [address] [place] [address] Shereen Latham MD 230 [place] [address] documented as of this encounter Visit Diagnoses Not on filedocumented in this encounter Additional Health Concerns Assessment Noted Time PHQ-9 Depression Total Score: 13 024 4:53 PM EDT documented as of this encounter Care Teams Fire Control Assistant Relationship Specialty Start Date End Date Shereen Latham MD 230 [place] [address] PCP - General Family Medicine 11/02/18 Nupur Bullock PharmD 230 [place] [address] Pharmacist Internal Medicine 08/09/24 Sury Benitez [address] [place] [address] [address] [place] [address] Pulmonary Disease 09/27/24 Nirali Madrid OD [address] [place] [address] Optometry 10/27/24 Li Grande MD [address] [place] [address] Hematology and Oncology 10/27/24 Anselmo Gates MD [facility] [address] [place] [address] Orthopaedic Surgery 10/27/24 Margaret Holman 11 [facility] 3rd [place] [address] Cardiology 10/27/24 Herberth Stokes MD 11 [facility] 3rd [place] [address] Gastroenterology 10/27/24 Hilton Palacios MD 15 [facility] [address] [place] [address] Neurology 02/06/25 Aaron Pringle MD 11 [facility] 3rd [place] [address] General Surgery 03/07/25 Pily Delaney Cutter And PresserType Casting Machine Operator 07/22/24 Elie BRASHER [facility] Psychology 12/29/24 documented as of this encounter
--- OUTSIDE RECORDS SUMMARY | 2025-03-16 14:37 | XMS_ITS | Clinical Summary ---
Author Organization [facility] [facility] Address [address] [place] [address] Care Team Providers Care Children'S Book Author Name Role Phone Shereen Latham MD Primary Care Provider [phone] Social History Tobacco Use Types Packs/Day Years [...] age to complete this topic Care Teams Children'S Book Author Relationship Specialty Start Date End Date Shereen Latham MD [address] [place] [phone] PCP - General 01/13/1996
--- OUTSIDE RECORDS SUMMARY | 2025-03-16 14:37 | XMS_ITS | Encounter Summary ---
Author Organization [employer] Address [address] [facility] 7 [place] [address] Care Team Providers Care Credit Risk Analytics Manager Name Role Phone Shereen Latham MD Primary Care Provider [phone] Nupur Bullock PharmD Unavailable [phone] Sury Benitez Unavailable [phone] Nirali Madrid OD Unavailable Li Grande MD Unavailable [phone] Anselmo Gates MD Unavailable Margaret Holman Unavailable Herberth Stokes MD Unavailable [phone] Hilton Palacios MD Unavailable [phone] Aaron Pringle MD Unavailable [phone] Reason for Visit * Reason Onset Date Comments Results 03/15/2025 Interoffice Coordination 03/15/2025 Encounter Details Date Type Department Care Team (Late st Contact Info) Description 03/15/2025 Telephone [facility] MEDICINE 230 [place], [place] [phone] Keira Escobar, RN 230 [place], [place] [phone] Results; Interoffice Coordination Social History Tobacco Use [...] anything is needed. Telephone call placed to [facility] General Surgery. Alysia reported that pt has [...] 2:00 PM EDT Office Visit [facility] ADULT DENTAL [address] [place] [address] Heidi, Jenny 230 [place] [address] 04/25/2025 2:30 PM EDT Medication Management [facility] MEDICINE [address] [place] [address] Nupur Bullock PharmD [address] [place] [address] 04/26/2025 9:30 AM EDT Office Visit [facility] MEDICINE [address] [place] [address] Shereen Latham MD [address] [place] [address] documented as of this encounter Visit Diagnoses Not on filedocumented in this encounter Additional Health Concerns Assessment Noted Time PHQ-9 Depression Total Score: 22 12/29/ 025 10:17 AM EST documented as of this encounter Care Teams Credit Risk Analytics Manager Relationship Specialty Start Date End Date Shereen Latham MD [address] [place] [address] PCP - General Family Medicine 11/02/18 Nupur Bullock PharmD [address] [place] [address] Pharmacist Internal Medicine 08/09/24 Ana MaríacassidycharleneSury [address] [facility] [address] [place] [address] Pulmonary Disease 09/27/24 Nirali Madrid OD [address] [place] [address] Optometry 10/27/24 Li Grande MD [address] [place] [address] Hematology and Oncology 10/27/24 Anselmo Gates MD 10 [facility] [address] [place] [address] Orthopaedic Surgery 10/27/24 Margaret Holman 11 [facility] 3rd [place] [address] Cardiology 10/27/24 Herberth Stokes MD 11 [facility] 3rd [place] [address] Gastroenterology 10/27/24 Hilton Plaacios MD [facility] [address] [place] [address] Neurology 02/06/25 Aaron Pringle MD 11 [facility] 3rd [place] [address] General Surgery 03/07/25 Pily Delaney Senior International Tax ManagerCustomer Care Voice Consultant 07/22/24 Elie Vicky [facility] 12/29/24 documented as of this encounter
--- OUTSIDE RECORDS SUMMARY | 2025-03-16 14:37 | XMS_ITS | Encounter Summary ---
Author Organization [employer] Address 75 [facility] 7 [place] [address] Care Team Providers Care Drier Tender Name Role Phone Shereen Latham MD Primary Care Provider [phone]- [phone] Nupur Bullock PharmD Unavailable Sury Benitez Unavailable [phone] Nirali Madrid OD Unavailable Li Grande MD Unavailable [phone] Anselmo Gates MD Unavailable Margaret Holman Unavailable Herberth Stokes MD Unavailable [phone] Hilton Palacios MD Unavailable Aaron Pringle MD Unavailable Reason for Visit * Reason Comments Med Refill Encounter Details Date Type Department Care Team (Late st Contact Info) Description 01/17/2025 Refill [facility] PEDS [address] [place], [place] [phone] Shereen Latham MD 230 [place], [place] [phone] Pain Social History Tobacco Use Types Packs/Day [...] Upcoming Encounters Date Type Department Care Team ([facility] st Contact Info) Description 03/29/2025 2:00 PM EDT Office Visit [facility] ADULT DENTAL 230 [place] [address] Jenny Gordon 230 [place] [address] 04/25/2025 2:30 PM EDT Medication Management [facility] MEDICINE [address] [place] [address] Nupur Bulolck PharmD 230 [place] [address] 04/26/2025 9:30 AM EDT Office Visit [facility] MEDICINE [address] [place] [address] Shereen aLtham MD 230 [place] [address] documented as of this encounter Visit Diagnoses Diagnosis Pain Generalized pain documented in this encounter Additional Health Concerns Assessment Noted Time PHQ-9 Depression Total Score: 22 025 10:17 AM EST documented as of this encounter Care Teams Drier Tender Relationship Specialty Start Date End Date Shereen Latham MD 230 [place] [address] PCP - General Family Medicine 11/02/18 Nupur Bullock, Pushpa [address] [place] [address] Pharmacist Internal Medicine 08/09/24 Sury Benitez [address] [place] [address] [address] [place] [address] Pulmonary Disease 09/27/24 Nirali Madrid OD 267 [place] [address] Optometry 10/27/24 Li Grande MD 575 [place] [address] Hematology and Oncology 10/27/24 Anselmo Gates MD [address] [place] [address] [address] [place] [address] Orthopaedic Surgery 10/27/24 Margaret Holman [address] [facility] [address] 3rd [place] [address] Cardiology 10/27/24 Herberth Stokes MD [address] [facility] [address] 3rd [place] [address] Gastroenterology 10/27/24 Hilton Palacios MD [address] [place] [address], [address] [place] [address] Neurology 02/06/25 Aaron Pringle MD 11 [facility] 3rd [place] [address] General Surgery 03/07/25 Pily Delaney Map MakerHand Bindery Assembly Worker 07/22/24 Elie Vicky [facility] 12/29/24 documented as of this encounter
--- OUTSIDE RECORDS SUMMARY | 2025-03-16 14:37 | XMS_ITS | Encounter Summary ---
Author Organization [employer] Address [address] [facility] 7t [place] [address] Care Team Providers Care Hypoid Gear Generator Name Role Phone Shereen Latham MD Primary Care Provider Nupur Bullock PharmD Unavailable [phone] Sury Benitez Unavailable [phone] Nirali Madrid OD Unavailable Li Grande MD Unavailable [phone] Anselmo Gates MD Unavailable Margaret Holman Unavailable Herberth Stokes MD Unavailable [phone] Hilton Palacios MD Unavailable [phone] Aaron Pringle MD Unavailable [phone] Reason for Referral * Consultation (Routine) - Closed Specialty Diagnoses / Procedures Referred By Contac t Referred To Contact Obstetrics and Gynecology Diagnoses Women's annual routine gynecological examination Stacey Khan MD [address] [place] [address] Phone: tel: fax: [facility] Women? s Services [address] 5th [address] (Main Hospital Entrance) [place], [place] Phone: tel: fax: Referral ID Status Reason Start Date Expiration Date V isits Requested Visits Authorized [id number] Closed Specialty Services Required 01/19/2025 01/19/2026 9 9 Encounter Details Date Type Department Care Team (Late st Contact Info) Description 01/19/2025 Orders Only [facility] [address] [place] [address] Stacey Khan MD [address] [place], [place] [phone] Women's annual routine gynecological examination (Primary Dx) [...] 2:00 PM EDT Office Visit [facility] ADULT DENTAL [address] [place] [address] Heidi, Jenny [address] [place] [address] 04/25/2025 2:30 PM EDT Medication Management [facility] [address] [place] [address] Nupur Bullock PharmD [address] [place] [address] 04/26/2025 9:30 AM EDT Office Visit [facility] MEDICINE [address] [place] [address] Shereen Latham MD [address] [place] [address] Scheduled Referrals Name Type Priority Associated Diagnoses [...] Sensitivity Troponin I (01/19/2025 4:33 PM EDT) [facility] TROPONIN I HIGH SENSITIVITY 7.8 <3.5 - 17.0 ng/L [facility] Comment:The Henriquez high sens itivity Troponin-I results should beused in conjunction with other diagnostic information suchas ECG, clinical observations and information, and patientsymptoms to aid in the diagnosis of VA. 01/19/2025 4:33 PM EDT 01/19/2025 4:34 PM EDT Generic External Data Provider LAB BLOOD ORDERAB LES Final Result Performing Organization Address [facility] Co de Phone Number [facility] [address] [place] [phone] * B Type Natriuretic Peptide (BNP) (01/19/2025 4:33 PM EDT) [facility] B Type Natriuretic Peptide 22 <100 pg/mL [facility] 01/19/2025 4:33 PM EDT 01/19/2025 4:34 PM EDT Generic External Data Provider LAB BLOOD ORDERAB LES Final Result Performing Organization Address [facility] Co de Phone Number [facility] [address] [place] [phone] * D Dimer High Sensitivity (01/19/2025 4:33 PM EDT) [facility] D Dimer High Sensitivity <150 NG/ML [facility] Comment:D-DIMER HS REFERENCE RANGENote: Our [...] Provider LAB BLOOD ORDERAB LES Final Result [facility] [address] [place] [phone] documented in this encounter Visit Diagnoses Diagnosis Women's annual routine gynecological examination- Primary documented in this encounter Additional Health Concerns Assessment Noted Time PHQ-9 Depression Total Score: 025 10:17 AM EST documented as of this encounter Care Teams Hypoid Gear Generator Relationship Specialty Start Date End Date Shereen Latham MD [address] [place] [address] PCP - General Family Medicine 11/02/18 Nupur Bullock, CharleneD [address] [place] [address] Pharmacist Internal Medicine 08/09/24 Sury Benitez [address] [place] [address] [facility] [address] [place] [address] Pulmonary Disease 09/27/24 Nirali Madrid, SUSAN [address] [place] [address] Optometry 10/27/24 Li Grande MD [address] [place] [address] Hematology and Oncology 10/27/24 Anselmo Gates MD [address] [facility] [address] [place] [address] Orthopaedic Surgery 10/27/24 Margaret Holman [address] 3rd [place] [address] Cardiology 10/27/24 Herberth Stokes MD 11 [facility] 3rd [place] [address] Gastroenterology 10/27/24 Hilton Palacios MD [address] [place] [address], [address] [place] [address] Neurology 02/06/25 Aaron Pringle MD [address] [place] [address] [address] [place] [address] General Surgery 03/07/25 Pily [employer] Age TeacherEmbedded Case Manager 07/22/24 Elie BRASHER [facility] 12/29/24 documented as of this encounter
== END 2025-03-16 14:30 | disposition home or self-care (01) ==
LOC: HO.HGS 13:56
PROVIDERS: PCP Family Medicine; Visit Provider Surgery
DX: N60.92 Unspecified benign mammary dysplasia of left breast (principal)
CPT/HCPCS: 99213

== ENCOUNTER 2025-03-20 14:58 | Outpatient (AMB) | payer MEDICAID, SELFPAY ==
[2025-03-20 14:59] VITALS: BMI 27.4
--- NOTE | 2025-03-20 14:59 | A.OFFVIS_ITS ---
Vital Signs 03/20/25 14:59 Height 5 ft 7 in Weight 175 lb BMI 27.4 Intake Visit Reasons: OV- Right knee OA Intake Note: Azra is a 48 year old female who presents today for a follow up of moderate- severe bilateral knee OA, R>L.hx of left ACL reconstruction in 1999. She has pain with daily activity, is limited in her ADLs, and feels her QOL is diminished. She is unable to use stairs, stand for prolonged periods of time, or ambulate without pain. She has failed PT and is unable to take NSAIDs due to GI upset. She reports only days of relief from steroid injections in the past, and short term relief from a saphenous nerve block done by Pain Management last month. It was recommended she continue to follow with Pain Management for treatment, including a nerve stimulator, strengthening exercises and activity modification. She may benefit from a TKA in the future but she would like to try conservative treatment options beforehand. Past procedures with pain mgmt 01/14/24: Peripheral Nerve Stimulation Temporary Lead Placement, Ultrasound- Guided, Saphenous Nerve, Right: No relief. 07/31/23: Right adductor canal saphenous nerve block, ultrasound-guided: Diagno stic relief for the duration of the anesthetic. 11/05/22: Lumbar Medial Branch Block, Bilateral L3, L4 medial branches and L5 Dorsal Ramus (2 levels, 3 nerves)- 100% relief. Allergies amoxicillin [AMOXICILLIN] Allergy (Intermediate, Verified 03/20/25 15:01) rash, rash/itching sulfamethoxazole [From BACTRIM] Allergy (Intermediate, Verified 03/20/25 15:01) RASH trimethoprim [From BACTRIM] Allergy (Intermediate, Verified 03/20/25 15:01) RASH hydrocodone [Hydrocodone] Allergy (Mild, Verified 03/20/25 15:01) ITCH ibuprofen [From Motrin] Allergy (Mild, Verified 03/20/25 15:01) UPSET STOMACH latex [Latex] Allergy (Mild, Verified 03/20/25 15:01) ITCH HPI HPI OV- Right knee OA: Details: 49-year-old female so unless 6 months ago for right knee arthritis. Comes in today complaining of pain he in her shoulders elbows wrists and over her whole body. Unsure why she was sent to see me as her knee is not pain generator at this time. She is finally off prednisone very uncomfortable and does not want to think about knee replacement at this time. Continues to have right and left knee pain however. [facility] Medical History Depression Anxiety and depression Lower back pain History of COVID-19 Uncontrolled hypertension Panic attack H/O ETOH abuse Anxiety History of low potassium Breast cancer Hypertension Surgical History History of carpal tunnel release Hx of tubal ligation History of breast lump/mass excision H/O: hysterectomy Family History Mother Heart disease Alzheimers disease Social History Household Members: None Housing: Apartment Housing Other:: 4th floor. No elevator Are you a primary health care marketing manager to a significant other at home: No Do you presently have visiting nurse or other home services: Yes ([employer] twice daily) Alcohol intake: former Comment: 1:1 SI Patient Tobacco Use Status: Current someday Tobacco user Tobacco use type: Cigarette Cigarettes Per Day: 5 Years Smoked: 38YRS e-Cigarette/Vaping Use: Never Used Second Hand Smoke Exposure: Yes Advance Directives Date on File: 02/11/22 service: No Current occupational status: disabled Female Reproductive History Menstrual Age of Menarche: 7 Physical Exam Vital Signs: BMI result Body Mass Index 27.4 Const General: no acute distress, alert and awake Orientation/consciousness: patient oriented x3 HEENT Head: Yes normocephalic and Yes atraumatic Eyes EOM: EOMs intact bilaterally Resp Effort & Inspection: normal respiratory effort and able to speak in complete sentences Cardio Jugular venous distension: no JVD Skin General skin exam: turgor normal Rashes: no rashes Neuro General: patient oriented x3 Extrem Other: Bilateral Knee: TTP MJL Mild effusion Psych Appearance: grossly normal Affect: normal affect Attitude: cooperative Assessment & Plan Assessment & Plan (1) Arthritis of right knee: Code(s): M17.11 - Unilateral primary osteoarthritis, right knee Category: Medical Plan: Right knee OA. Her primary pain seems to be fibromyalgia. I do not recommend treatment for her right knee at this time. F/u 6 mo if needed but not a suitable candidate at this time. Coding Level of Care Code Est Pt Level 3 (95324) Diagnoses Arthritis of right knee M17.11
--- OUTSIDE RECORDS SUMMARY | 2025-03-20 15:01 | XMS_ITS | Clinical Summary ---
Author Organization [employer] [facility] Address [address] [place] [address] Care Team Providers Care Durability Engineer Name Role Phone Shereen Latham MD Primary Care Provider [phone] Social History Tobacco Use Types Packs/Day Years [...] age to complete this topic Care Teams Durability Engineer Relationship Specialty Start Date End Date Shereen Latham MD [address] [place] [phone] PCP - General 01/13/1996
== END 2025-03-20 15:17 | disposition home or self-care (01) ==
LOC: HO.HOS 14:59
PROVIDERS: PCP Family Medicine; Visit Provider Orthopaedic Surgery
DX: M17.11 Unilateral primary osteoarthritis, right knee (principal)
CPT/HCPCS: 99213

== ENCOUNTER → 2025-03-20 14:58 | Outpatient (BNVA) | payer MEDICAID, SELFPAY | PROVIDERS: PCP Family Medicine; Visit Provider Orthopaedic Surgery | DX: M17.0 Bilateral primary osteoarthritis of knee (principal); M79.7 Fibromyalgia | CPT/HCPCS: 99212 ==

== ENCOUNTER → 2025-04-05 13:58 | Outpatient (REF) | payer MEDICAID, SELFPAY ==
--- OUTSIDE RECORDS SUMMARY | 2025-04-05 14:02 | XMS_ITS | Encounter Summary ---
Author Organization [employer] Address [address] [facility] 7 [place] [address] Care Team Providers Care Boiler Or Engine Operator Name Role Phone Shereen Latham MD Primary Care Provider [phone] Nuupr Bullock PharmD Unavailable Sury Benitez Unavailable [phone] Nirali Madrid OD Unavailable Li Grande MD Unavailable [phone] Anselmo Gates MD Unavailable Margaret Holman Unavailable Herberth Stokes MD Unavailable [phone] Hilton Palacios MD Unavailable [phone] Aaron Pringle MD Unavailable [phone] Encounter Details Date Type Department Care Team (Late st Contact Info) Description 05/02/2024 Orders Only [facility] [address] [place], [place] [phone] Shereen Latham MD [address] [place], [place] [phone] Gout, unspecified cause, unspecified chronicity, unspecified site [...] Care Team (Late st Contact Info) Description 04/10/2025 11:00 AM EDT Office Visit [facility] [address] [place] [address] 04/25/2025 2:30 PM EDT Medication Management [facility] [address] [place] [address] Nupur Bullock, PharmD [address] [place] [address] 04/26/2025 9:30 AM EDT Office Visit [facility] [address] [place] [address] Shereen Latham MD [address] [place] [address] 04/28/2025 2:00 PM EDT Office Visit [facility] ADULT DENTAL [address] [place] [address] Paz-ConnorAlfredoIsa, DDS [address] [place] [address] documented as of this encounter Visit Diagnoses Diagnosis Gout, unspecified cause, unspecified chronicity, unspecified site- Primary documented in this encounter Additional Health Concerns Assessment Noted Time PHQ-9 Depression Total Score: 23 024 1:45 PM EDT documented as of this encounter Care Teams Boiler Or Engine Operator Relationship Specialty Start Date End Date Shereen Latham MD [address] [place] [address] PCP - General Family Medicine 11/02/18 Nupur Bullock, PharmD [address] [place] [address] Pharmacist Internal Medicine 08/09/24 Sury Benitez [address] [place] [address] [place] [address] Pulmonary Disease 09/27/24 Nirali Madrid OD [address] [place] [address] Optometry 10/27/24 Li Grande MD [address] [place] [address] Hematology and Oncology 10/27/24 Anselmo Gates MD [address] [place] [address] Orthopaedic Surgery 10/27/24 Margaret Holman 11 [facility] 3rd [place] [address] Cardiology 10/27/24 Herberth Stokes MD 11 [facility] [address]rd [place] [address] Gastroenterology 10/27/24 Hilton Palacios MD [address] [facility], [address] [place] [address] Neurology 02/06/25 Aaron Pringle MD 11 [facility] 3rd [place] [address] General Surgery 03/07/25 Pily Delaney Production TechnicianJob Developer 07/22/24 Elie Vicky [facility] 12/29/24 documented as of this encounter
== END ==
LOC: HO.SL 13:58
PROVIDERS: PCP Family Medicine; Visit Provider Nurse Practitioner Family
DX: R40.0 Somnolence (principal); G47.8 Other sleep disorders; R06.83 Snoring
CPT/HCPCS: 95806

== ENCOUNTER → 2025-04-05 14:11 | Outpatient (BNV) | payer MEDICAID, SELFPAY | PROVIDERS: PCP Family Medicine; Visit Provider Internal Medicine | DX: R06.83 Snoring (principal) | CPT/HCPCS: 95806 ==

== ENCOUNTER 2025-04-10 14:56 | Outpatient (AMB) | payer MEDICAID, SELFPAY ==
--- NOTE | 2025-04-10 14:57 | A.OFFVIS_ITS ---
Vital Signs 04/10/25 15:00 Height 5 ft 7 in Weight 200 lb 9.93 oz BMI 31.4 BP 122/90 H Blood Pressure Location Rt brachial Position Sitting Pulse 126 H Pulse Source Pulse Oximeter Pulse Oximetry (%) 98 Oxygen Delivery Method Room Air Intake Visit Reasons: Shortness of breath Allergies amoxicillin [AMOXICILLIN] Allergy (Intermediate, Verified 04/10/25 15:03) rash, rash/itching sulfamethoxazole [From BACTRIM] Allergy (Intermediate, Verified 04/10/25 15:03) RASH trimethoprim [From BACTRIM] Allergy (Intermediate, Verified 04/10/25 15:03) RASH hydrocodone [Hydrocodone] Allergy (Mild, Verified 04/10/25 15:03) ITCH ibuprofen [From Motrin] Allergy (Mild, Verified 04/10/25 15:03) UPSET STOMACH latex [Latex] Allergy (Mild, Verified 04/10/25 15:03) ITCH HPI HPI Shortness of breath: Details: Azra is a pleasant 49 year old female, current minimal smoker, with 10 pack year history, with underlying HTN, CHF , h/o of right breast adenocarcinoma s/p mastectomy/chemo 2007 and h/o alcohol dependence. She reports progressively worsening dyspnea for the past years with associated chest tightness, denying cough or wheezing. PFT 08/25 revealed mild restrictive defect, with response to bronchodilators in small to medium airways only with slightly increased DLCO, WNL. CT chest demonstrates minimal bronchiectasis and mild wall thickening suggesting chronic bronchitis. She was started on Advair for likely asthma, with moderate effect however has difficulties using consistently. She continues to report persistent chest tightness and dyspnea. Since the last visit, she has been evaluated by cardiology, underwent holter which revealed sinus tachycardia, patient 126 today, without other significant abnormalities. She recently had her metoprolol increased last week and has reportedly been compliant with lasix/spironolactone. She denies any chest pain, lightheadedness or dizziness. She also reports intermittent orthopnea denies BLE edema or PND. [facility] Medical History Depression Anxiety and depression Lower back pain History of COVID-19 Uncontrolled hypertension Panic attack H/O ETOH abuse Anxiety History of low potassium Breast cancer Hypertension Surgical History History of carpal tunnel release Hx of tubal ligation History of breast lump/mass excision H/O: hysterectomy Family History Mother Heart disease Alzheimers disease Social History Household Members: None Housing: Apartment Housing Other:: 4th floor. No elevator Are you a primary intensive care unit registered nurse to a significant other at home: No Do you presently have visiting nurse or other home services: Yes (Animal Caretaker Supervisor twice daily) Alcohol intake: former Comment: 1:1 SI Patient Tobacco Use Status: Current someday Tobacco user Tobacco use type: Cigarette Cigarettes Per Day: 5 Years Smoked: 38YRS e-Cigarette/Vaping Use: Never Used Second Hand Smoke Exposure: Yes Advance Directives Date on File: 02/11/22 service: No Current occupational status: disabled Female Reproductive History Menstrual Age of Menarche: 7 Review of Systems Const Denies chills, Denies excessive sweating, Denies fever(s), Denies headache(s) and Denies night sweats Eyes Denies dry eyes, Denies irritation and Denies itchy eyes ENT Reports Normal hearing present, Denies headache(s), Denies nasal congestion, Denies nasal discharge, Denies post nasal drip and Denies sore throat Card Denies chest pain, Denies chest pain at rest, Denies chest pain with activity, Denies claudication, Denies leg edema, Reports dyspnea, Reports dyspnea on exertion and Denies paroxysmal nocturnal dyspnea Resp Denies chest congestion, Denies cough, Denies excessive phlegm production, Denies pain on inspiration, Denies pain with cough, Reports dyspnea, Reports dyspnea on exertion, Denies stridor and Denies wheezing Musc Denies myalgias Neuro Reports Normal hearing present and Denies headache(s) Endo Denies excessive sweating Dominguez/Lymph Denies lymphadenopathy Aller/Immun Denies itchy eyes, Reports seasonal rhinorrhea and Denies wheezing Physical Exam Vital Signs: Last Vital Signs Pulse 126 H 04/10/25 15:00 BP 122/90 H 04/10/25 15:00 Pulse Ox 98 04/10/25 15:00 Oxygen Delivery Method Room Air 04/10/25 15:00 BMI result Body Mass Index 31.4 Const General: cooperative, healthy appearing, comfortable, no acute distress, well developed and alert Orientation/consciousness: patient oriented x3 Limitations: no limitations HEENT Head: Yes normal to inspection, Yes normocephalic and Yes atraumatic Ears: hearing grossly normal bilaterally and external ears normal Eyes General: appearance normal, both eyes and all related structures Eyelids: Yes eyelids normal Sclerae: sclerae normal EOM: EOMs intact bilaterally Neck Neck: Yes normal visual inspection and Yes no lymphadenopathy Lymphatic: no lymphadenopathy noted Chest Chest palpation & inspection: normal inspection of the chest Resp Effort & Inspection: normal respiratory effort, able to speak in complete sentences, no audible wheezes, no cough, no stridor, not tachypneic, no tripod positioning and no use of accessory muscles Auscultation: clear to auscultation bilaterally Cardio Jugular venous distension: no JVD Rate: regular rate Rhythm: regular rhythm Skin Other: warm, dry General skin exam: no rashes or lesions noted Neuro General: patient oriented x3 Cranial nerves: Yes Normal hearing present Cognition (Neuro): normal cognition Gait exam (Neuro): Normal gait present Extrem General: Yes normal to inspection, Yes capillary refill normal, Yes no clubbing, cyanosis or edema and Yes no pedal edema Psych Appearance: grossly normal and well kempt Speech and movement: Normal speech and movement present and Clear speech present Affect: normal affect Attitude: cooperative Thought process: Normal thought process present Thought content: Normal thought content present Insight: Good insight present (Psych) Judgement: Good judgement present (Psych) Assessment & Plan Assessment & Plan (1) Chronic bronchitis: Code(s): J42 - Unspecified chronic bronchitis Category: Medical (2) Restrictive ventilatory defect: Code(s): R94.2 - Abnormal results of pulmonary function studies Category: Medical (3) Dyspnea: Code(s): R06.00 - Dyspnea, unspecified Category: Medical (4) Nicotine dependence, cigarettes, uncomplicated: Code(s): F17.210 - Nicotine dependence, cigarettes, uncomplicated Category: Medical (5) Multiple pulmonary nodules: Code(s): R91.8 - Other nonspecific abnormal finding of lung field Category: Medical Plan Patient recent underwent cardiology evaluation with stress test which was negat dasia for ischemic changes and echo revealed slight decrease in LVEF since 2023 now 50%. She recently had metoprolol increased however tachycardic today 126 bpm. She denies any chest pain however discussed symptoms that would warrant emergent evaluation. Will send for ddimer to assess for PE. Denies chest pain or LE pain/edema/erythema. Patient likely with multifactorial symptoms including pulmonary and cardiac. Encouraged patient to consistently use Advair as well as nebulized therapy to better assess effectiveness. She previously reported symptoms suggestive of LEX with persistent daytime fatigue, nonrestorative sleep and loud snoring. She had home sleep study performed last week, results not available at this time. Of note, patient also reports ongoing widespread joint pain dry mouth, skin changes and fatigue, will send for autoimmune work up. Smoking cessation reviewed and patient not ready to quit at this time. All questions were answered and patient is in agreement of plan. Will follow up in 2-3 months or sooner if needed. Orders: Orders Rheumatoid Factor Today M25.50 - Pain in unspecified joint Scleroderma 70 Antibody Today M25.50 - Pain in unspecified joint Sjogren's Antibodies Today M25.50 - Pain in unspecified joint D Dimer High Sensitivity Today R06.00 - Dyspnea, unspecified Anti DNA DS Antibody Today M25.50 - Pain in unspecified joint MONTY Reflex Titer and Pattern Today M25.50 - Pain in unspecified joint Cyclic Citrullinated Peptide Today M25.50 - Pain in unspecified joint Coding Level of Care Code Est Pt Level 4 (38734) Complex EM visit Add On G2211 Diagnoses Chronic bronchitis J42 Restrictive ventilatory defect R94.2 Dyspnea R06.00 Nicotine dependence, cigarettes, uncomplicated F17.210 Multiple pulmonary nodules R91.8
[2025-04-10 15:00] VITALS: BP 122/90; PULSE 126; O2SAT 98; BMI 31.4
--- OUTSIDE RECORDS SUMMARY | 2025-04-10 16:43 | XMS_ITS | Encounter Summary ---
Author Organization [employer] Address [address] [facility] [place] [address] Care Team Providers Care Alternative Financing Specialist Name Role Phone Shereen Latham MD Primary Care Provider [phone] Nupur Bullock PharmD Unavailable [phone] Sury Benitez Unavailable [phone] Nirali Madrid OD Unavailable Li Grande MD Unavailable [phone] Anselmo Gates MD Unavailable Margaret Holman Unavailable Herberth Stokes MD Unavailable [phone] Hilton Palacios MD Unavailable Aaron Pringle MD Unavailable [phone] Encounter Details Date Type Department Care Team (Late st Contact Info) Description 05/02/2024 Orders Only [facility] MEDICINE [address] [place], [place] [phone] Shereen Latham MD [address], [place] [phone] Gout, unspecified cause, unspecified chronicity, unspecified site [...] Care Team (Late st Contact Info) Description 04/25/2025 2:30 PM EDT Medication Management [facility] MEDICINE [address] [place] [address] Nupur Bullock, PharmD [address] [place] [address] 04/26/2025 9:30 AM EDT Office Visit [facility] MEDICINE [address] [place] [address] Shereen Latham MD [address] [place] [address] 04/28/2025 2:00 PM EDT Office Visit [facility] ADULT DENTAL [address] [place] [address] Paz-Connor, Isa, DDS [address] [place] [address] documented as of this encounter Visit Diagnoses Diagnosis Gout, unspecified cause, unspecified chronicity, unspecified site- Primary documented in this encounter Additional Health Concerns Assessment Noted Time PHQ-9 Depression Total Score: 23 024 1:45 PM EDT documented as of this encounter Care Teams Alternative Financing Specialist Relationship Specialty Start Date End Date Shereen Latham MD [address] [place] [id number] PCP - General Family Medicine 11/02/18 Nupur Bullock PharmD [address] [place] [phone] Pharmacist Internal Medicine 08/09/24 Sury Benitez [address] [place] [phone] Pulmonary Disease 09/27/24 Nirali Madrid OD [address] [place] [phone] Optometry 10/27/24 Li Grande MD [address] [place] [phone] Hematology and Oncology 10/27/24 Anselmo Gates MD [address] [place] [address] Orthopaedic Surgery 10/27/24 Margaret Holman [address] [place] [address] Cardiology 10/27/24 Herberth Stokes MD [address] [place] [address] Gastroenterology 10/27/24 Hilton Palacios MD [address] [place] [address] Neurology 02/06/25 Aaron Pringle MD [address] [place] [address] General Surgery 03/07/25 Pily Delaney [address] [employer] 07/22/24 Elie Vicky [facility] 12/29/24 documented as of this encounter
== END 2025-04-10 15:30 | disposition home or self-care (01) ==
LOC: HO.HPS 14:56
PROVIDERS: PCP Family Medicine; Visit Provider Nurse Practitioner Family
DX: J42 Unspecified chronic bronchitis (principal); R94.2 Abnormal results of pulmonary function studies; R06.00 Dyspnea, unspecified; F17.210 Nicotine dependence, cigarettes, uncomplicated; R91.8 Other nonspecific abnormal finding of lung field
CPT/HCPCS: 99214

== ENCOUNTER → 2025-04-10 14:56 | Outpatient (BNVA) | payer MEDICAID, SELFPAY | PROVIDERS: PCP Family Medicine; Visit Provider Nurse Practitioner Family | DX: J42 Unspecified chronic bronchitis (principal); R06.00 Dyspnea, unspecified; R91.8 Other nonspecific abnormal finding of lung field; R94.2 Abnormal results of pulmonary function studies; F17.210 Nicotine dependence, cigarettes, uncomplicated; M25.50 Pain in unspecified joint | CPT/HCPCS: 99212 ==

== ENCOUNTER 2025-04-19 13:20 | Outpatient (AMB) | payer MEDICAID, SELFPAY ==
[2025-04-19 13:27] VITALS: BP 118/72; PULSE 105; O2SAT 98; BMI 31.3
--- NOTE | 2025-04-19 13:27 | A.OFFVIS_ITS ---
Vital Signs 04/19/25 13:27 Height 5 ft 7 in Weight 200 lb 2.876 oz BMI 31.3 BP 118/72 Blood Pressure Location Lt brachial Position Sitting Pulse 105 H Pulse Source Pulse Oximeter Pulse Oximetry (%) 98 Oxygen Delivery Method Room Air Intake Visit Reasons: Gout Intake Note: Patient last seen by Doctor Leta Lunsford on 08/08/24. Presents today for Gout follow up. She complains of pain all over her body today. News Content Specialist Required: No Accompanied by: Self / Same As Patient Allergies amoxicillin (AMOXICILLIN) Allergy (Intermediate, Verified 04/19/25 13:29) rash, rash/itching sulfamethoxazole (From BACTRIM) Allergy (Intermediate, Verified 04/19/25 13:29) RASH trimethoprim (From BACTRIM) Allergy (Intermediate, Verified 04/19/25 13:29) RASH hydrocodone (Hydrocodone) Allergy (Mild, Verified 04/19/25 13:29) ITCH ibuprofen (From Motrin) Allergy (Mild, Verified 04/19/25 13:29) UPSET STOMACH latex (Latex) Allergy (Mild, Verified 04/19/25 13:29) ITCH Medication List - Last Reconciled 04/19/25 by Lilly Clarke MD acetaminophen (Tylenol Extra Strength) 500 mg PO Q6H PRN acetaminophen 500 mg PO Q6H PRN [ACL defiance brace n/a] albuterol sulfate 90 mcg/actuation 2 puffs inhalation Q4H PRN albuterol sulfate 2.5 mg (3 mL) inhalation Q4-6H PRN allopurinol 100 mg PO BID cetirizine 10 mg PO DAILY PRN cholecalciferol (vitamin D3) (Vitamin D3) 1 cap PO DAILY fluticasone propion-salmeterol 115-21 mcg/actuation (Advair HFA) 2 puffs inhalation Q12H fluticasone propion-salmeterol 115-21 mcg/actuation (Advair HFA) 2 puffs inhalation Q12H folic acid 1 tab PO DAILY furosemide 40 mg See Protocol PO DAILY losartan 25 mg See Protocol PO BID magnesium oxide 400 mg PO BIDPC 30 days metoprolol succinate ER 50 mg PO DAILY omeprazole 1 cap PO DAILY@0630 spironolactone 12.5 mg (1/2 x 25 mg) PO QAM 90 days thiamine HCl (vitamin B1) 1 tab PO DAILY HPI Comments Details: Patient is a 49 y.o. 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 Lunsford. At that time she was following up for her newly diagnosed gout on colchicine, allopurinol and Medrol. She had right knee pain at that time for which she received a steroid injection with improvement. Her allopurinol was increased to 200 mg daily by her PCP and since that time she had not improvement in her gout symptoms Rheumatologic History: Non crystal proven gout - inflammatory knee aspirate - allopurinol 05/2024 Fibromyalgia - gabapentin ?dates. Allergic reaction Osteoarthritis - Knee. Left knee with ACL reconstruction Current Rheumatology Medication(s): Allopurinol 100mg bid (PCP prescribed) [facility] Medical History (Updated 04/19/25 @ 15:28 by Lilly Clarke MD) Fibromyalgia Depression Anxiety and depression Lower back pain History of COVID-19 Uncontrolled hypertension Panic attack H/O ETOH abuse Anxiety History of low potassium Breast cancer Hypertension Surgical History History of carpal tunnel release Hx of tubal ligation History of breast lump/mass excision H/O: hysterectomy Family History Mother Heart disease Alzheimers disease Social History Household Members: None Housing: Apartment Housing Other:: 4th floor. No elevator Are you a primary family day carer to a significant other at home: No Do you presently have visiting nurse or other home services: Yes (Dry Primer Powder Blender twice daily) Alcohol intake: former Comment: 1:1 SI Patient Tobacco Use Status: Current someday Tobacco user Tobacco use type: Cigarette Cigarettes Per Day: 5 Years Smoked: 38YRS e-Cigarette/Vaping Use: Never Used Second Hand Smoke Exposure: Yes Advance Directives Date on File: 02/11/22 service: No Current occupational status: disabled Female Reproductive History Menstrual Age of Menarche: 7 Review of Systems Const Details: Review of Systems Constitutional: Denies fever, chills, weight loss ENT: Denies vision changes, eye pain or eye redness, dental caries, dry mouth GI: Denies nausea, vomiting, diarrhea, abdominal pain, change in BM Pulm: Denies SOB, [place]AR[place], hemoptysis, wheezing Cards: Denies chest pain, palpitations Skin: Denies Raynaud's, rash, nail changes, photosensitivity, MATERIAL FLOW ANALYST: Denies headaches, weakness, paresthesias, recurrent falls MSK: as per HPI All other systems reviewed and are unremarkable except noted above Physical Exam Vital Signs: Last Vital Signs Pulse 105 H 04/19/25 13:27 BP 118/72 04/19/25 13:27 Pulse Ox 98 04/19/25 13:27 Oxygen Delivery Method Room Air 04/19/25 13:27 BMI result Body Mass Index 31.3 Vital signs reviewed Physical Examination CONSTITUITIONAL Patient alert and cooperative. Well appearing and in no apparent painful distress HEENT Conjunctiva and sclera clear. No lymphadenopathy. CHEST/RESPIRATORY SYSTEM Normal respiratory effort and able to speak in complete sentences. Clear to auscultation bilaterally. No crackles, rales, rhonchi, wheezes heard. CARDIAC SYSTEM Regular rate and rhythm. S1 and S2 heard no murmurs. Radial pulses intact bilaterally MSK Hands * Right Hand: Able to make a fist. No swelling or tenderness to palpation of these joints. No deformities noted. * Left Hand: Able to make a fist. No swelling or tenderness to palpation of these joints. No deformities noted. Wrists * Right Wrist: Full ROM. 70 degrees of wrist flexion, 80 degrees of wrist extension. No swelling or TTP * Left Wrist: Full ROM. 70 degrees of wrist flexion, 80 degrees of wrist extension. No swelling or TTP Elbows * Right Elbow: Full ROM. No swelling or TTP. TTP of the medial epicondyles * Left Elbow: Full ROM. No swelling or TTP. TTP of the medial epicondyles Shoulders * Right shoulder: Decreased ROM. No swelling noted. No TTP of the AC joint, subacromial bursa or posterior shoulder * Left shoulder: Decreased ROM. No swelling noted. No TTP of the AC joint, subacromial bursa or posterior shoulder Hip bursa: Tenderness to palpation bilaterally Knees * Right knee: Decreased ROM. Mild effusion. TTP of the knee joint line and pes anserine bursa * Left knee: Decreased ROM. Mild effusion. TTP of the knee joint line and pes anserine bursa Ankles * Right ankle: Good ankle dorsiflexion and plantar flexion. No swelling. No TTP of the ankle joint * Left ankle: Good ankle dorsiflexion and plantar flexion. No swelling. No TTP of the ankle joint Feet * Right foot: Negative squeeze test * Left foot: Negative squeeze test Tender points? * Tenderness to palpation of the bilateral trapezius, supraspinatus, anterior costochondral junctions, bilateral suboccipital muscle insertions SKIN No rashes Results Reviewed Results Reviewed: Laboratory Tests 01/16/25 03/02/25 15:56 09:00 WBC 10.3 RBC 3.85 L Hgb 11.2 L Hct 34.4 L Plt Count 389 D Sodium 141 Potassium 4.4 Chloride 108 Carbon Dioxide 24 BUN 22 H Creatinine 0.93 Estim Creat Clear Calc 82.4 Uric Acid 5.7 Magnesium 1.8 AST 19 ALT 19 Alkaline Phosphatase 111 XR Right Knee 12/2024 FINDINGS: No fracture, dislocation, or suspicious bone lesion. Normal alignment. There has been prior ACL repair. Moderate tricompartmental joint space narrowing with extensive marginal productive osteophytic changes. Large suprapatellar joint effusion present with probable calcified loose bodies. Soft tissues otherwise normal. IMPRESSION: 1. Moderate tricompartmental osteoarthrosis. 2. Suprapatellar joint effusion with probable calcified loose bodies. Assessment & Plan Assessment & Plan (1) Gout: Code(s): M10.9 - Gout, unspecified Category: Medical Qualifiers: Gout site: foot Gout etiology: idiopathic Chronicity: acute Laterality: left Qualified Code(s): M10.072 - Idiopathic gout, left ankle and foot Plan: #Gout Patient is a 49 y.o. female with non crystal proven gout here today for follow up. No gout flares since last visit. No longer on colchicine or prednisone UA at goal 5.7 Plan - Allopurinol 200mg - RTC 6 months - Labs before visit: CBC, CMP, ESR, CRP, UA (2) Bilateral primary osteoarthritis of knee: Code(s): M17.0 - Bilateral primary osteoarthritis of knee Category: Medical Plan: #Bilateral knee OA Patient with bilateral knee OA and a history of left ACL reconstruction in 1999 She states that her right knee also feel unstable but ortho is not willing to do surgery because of her significant knee OA which would make ACL repair unsuccessful. Saw ortho 03/2025 and evaluated as not a candidate for knee replacement due to her primary pain being from fibromyalgia. I recommended she continue follow up with ortho as well as starting regular exercise to strengthen her thigh muscles. She is interested in getting a treadmill, I advised that she should get a stationary bike instead. (3) Fibromyalgia: Code(s): M79.7 - Fibromyalgia Category: Medical Plan: #Fibromyalgia Patient with fibromyalgia and complaining of whole body pain I had a long discussion with the patient about her diagnosis of fibromyalgia. Discussed that it is a central sensitization disorder where her nerves are unfortunately transmitting only pain signals. I discussed that this is an incurable disease and that the treatment really is regular physical activity and stretching. I listed the names of some drugs that we could try to see if they help including gabapentin, pregabalin, amitriptyline, duloxetine, milnacipran, and muscle relaxers. Patient has tried gabapentin in the past without improvement so we will try pregabalin Plan - Pregabalin 25mg - 75mg nightly - Exercise and stretches - RTC 6 months Plan I spent 45 minutes reviewing the record and labs, taking a history, examining the patient, discussing the treatment plan, fibromyalgia counselling, ordering diagnostic work up and documenting in the medical record Medications: New pregabalin 75 mg (3 x 25 mg) PO BEDTIME 270 caps 1RF 90 days M79.7 - Fibromyalgia Coding Level of Care Code Est Pt Level 5 (16599) Complex EM visit Add On G2211 Diagnoses Acute idiopathic gout of left foot M10.072 Gout site: foot Gout etiology: idiopathic Chronicity: acute Laterality: left Bilateral primary osteoarthritis of knee M17.0 Fibromyalgia M79.7
--- OUTSIDE RECORDS SUMMARY | 2025-04-19 15:13 | XMS_ITS | Encounter Summary ---
Author Organization [employer] Address 75 [facility] 7 [place] [address] Care Team Providers Care Online Marketing Coordinator Name Role Phone Shereen Latham MD Primary Care Provider [phone]- [phone] Nupur Bullock PharmD Unavailable Sury Benitez Unavailable [phone] Nirali Madrid OD Unavailable Li Grande MD Unavailable [phone] Anselmo Gates MD Unavailable Margaret Holman Unavailable Herberth Stokes MD Unavailable [phone] Hilton Palacios MD Unavailable Aaron Pringle MD Unavailable [phone] Encounter Details Date Type Department Care Team (Late st Contact Info) Description 05/02/2024 Orders Only [facility] [address] [place], [place] [phone] Shereen Latham MD [address] [place], [place] [phone] Gout, unspecified cause, unspecified chronicity, unspecified site [...] Description 04/25/2025 2:30 PM EDT Medication Management [facility] [address] [place] [address] Nupur Bullock, PharmD [address] [place] [address] 04/26/2025 9:30 AM EDT Office Visit [facility] [address] [place] [address] Shereen Latham MD [address] [place] [address] 04/28/2025 2:00 PM EDT Office Visit [facility] [address] [place] [address] Paz-Connor, Isa, DDS [address] [place] [address] 05/08/2025 11:00 AM EDT Office Visit [facility] [address] [place] [address] documented as of this encounter Visit Diagnoses Diagnosis Gout, unspecified cause, unspecified chronicity, unspecified site- Primary documented in this encounter Additional Health Concerns Assessment Noted Time PHQ-9 Depression Total Score: 23 024 1:45 PM EDT documented as of this encounter Care Teams Online Marketing Coordinator Relationship Specialty Start Date End Date Shereen Latham MD [address] [place] [address] PCP - General Family Medicine 11/02/18 Nupur Bullock, CharleneD [address] [place] [address] Pharmacist Internal Medicine 08/09/24 Sury Benitez [address] [place] [address] [place] [address] Pulmonary Disease 09/27/24 Nirali Madrid OD [address] [place] [address] Optometry 10/27/24 Li Grande MD [address] [place] [address] Hematology and Oncology 10/27/24 Anselmo Gates MD [address] [address] [place] [address] Orthopaedic Surgery 10/27/24 Margaret Holman 11 [facility] 3rd [place] [address] Cardiology 10/27/24 Herberth Stokes MD 11 [facility] [address] [place] [address] Gastroenterology 10/27/24 Hilton Palacios MD 15 [facility], [address] [place] [address] Neurology 02/06/25 Aaron Pringle MD 11 [facility] [address] [place] [address] General Surgery 03/07/25 Pily Delaney Broom Handle DipperCanoe Inspector Final 07/22/24 Elie Vicky [facility] 12/29/24 documented as of this encounter
== END 2025-04-19 14:30 | disposition home or self-care (01) ==
LOC: HO.RHE 13:21
PROVIDERS: PCP Family Medicine; Visit Provider Student in an Organized Health Care Education/Training Program
DX: M10.072 Idiopathic gout, left ankle and foot (principal); M17.0 Bilateral primary osteoarthritis of knee; M79.7 Fibromyalgia
CPT/HCPCS: 99215

== ENCOUNTER 2025-04-19 14:38 | Outpatient (REF) | payer MEDICAID, SELFPAY ==
[2025-04-19 15:32] LABS: D Dimer High Sensitivity < 150 NG/ML
[2025-04-19 15:41] LABS: Uric Acid 5.4 mg/dL (2.4-5.7)
[2025-04-19 15:42] LABS: Rheumatoid Factor < 13.0 IU/mL (<15.0)
[2025-04-20 16:33] LABS: Anti DNA DS Antibody <1 IU/mL; Antibody to SS-A Antigen <1.0 NEG AI (<1.0 NEG); Antibody to SS-B Antigen <1.0 NEG AI (<1.0 NEG); Scleroderma 70 Antibody <1.0 NEG AI (<1.0 NEG)
[2025-04-24 12:09] LABS: Anti Nuclear Antibody Screen POSITIVE (NEGATIVE)
[2025-04-26 14:44] LABS: Cyclic Citrullinated Peptide <16 UNITS
== END 2025-04-19 14:39 | disposition home or self-care (01) ==
LOC: HO.LAB 14:38
PROVIDERS: PCP Family Medicine; Visit Provider Nurse Practitioner Family
DX: Z00.00 Encounter for general adult medical examination without abnormal findings (principal); M25.50 Pain in unspecified joint; R06.00 Dyspnea, unspecified; M10.072 Idiopathic gout, left ankle and foot; M17.0 Bilateral primary osteoarthritis of knee; M79.7 Fibromyalgia; Z79.899 Other long term (current) drug therapy
CPT/HCPCS: 36415; 84550; 85379; 86038; 86039; 86200; 86225; 86235; 86431; 99212

== ENCOUNTER → 2025-04-20 12:51 | Outpatient (BNV) | payer MEDICAID, SELFPAY | PROVIDERS: PCP Family Medicine; Visit Provider Internal Medicine | DX: N63.23 Unspecified lump in the left breast, lower outer quadrant (principal) | CPT/HCPCS: 77049 ==

== ENCOUNTER 2025-04-20 13:00 | Outpatient (REF) | payer MEDICAID, SELFPAY ==
--- NOTE | ~2025-04-20 | MR_ITS ---
EXAMINATION: MR BREAST WITHOUT AND WITH CONTRAST, BILATERAL CLINICAL INFORMATION: Recent left breast stereotactic core needle biopsy with pathology of atypical ductal hyperplasia. COMPARISON: Priors on PACS. TECHNIQUE: MR imaging of the breast was performed using T1 and T2 and fat saturated techniques. Dynamic multiphase imaging was also performed before and after the administration of gadolinium contrast agent. Line 3-D reconstruction was used in the interpretation of this examination. FINDINGS: There is scattered fibroglandular breast tissue with moderate background enhancement. LEFT BREAST: 5 mm oval enhancing foci retroareolar region slightly lateral breast series 1043 image 62/134 5-6 mm oval enhancing mass in the lower outer breast middle to posterior depth series 1043 image 80/134. No other suspicious enhancing masses or areas of nonmass enhancement. No internal mammary or axillary adenopathy. RIGHT BREAST: Status post right mastectomy changes with implant augmentation. No suspicious enhancing masses or areas of nonmass enhancement. No internal mammary or axillary adenopathy. Limited views of the chest and abdomen are unremarkable. MR/MR breast BI wo/w con IMPRESSION: Right: Postmastectomy changes. Benign. Left: 1. 5 to 6 mm oval enhancing mass in the lower outer left breast given patient's history of right breast cancer and recent biopsy-proven left breast atypical ductal hyperplasia recommend MRI guided core needle biopsy at this time. 2. 5 mm oval enhancing foci retroareolar region slightly lateral breast management will be pending biopsy of the above mass to include six-month follow-up MRI for further evaluation of stability. 3. Recent biopsy-proven atypical ductal hyperplasia in the left breast. The patient is under the care of a breast surgeon for excision and further management. ASSESSMENT: LEFT BREAST: BI-RADS 4 suspicious. Recommend MRI guided core needle biopsy at this time. In addition there is another 5 mm foci for which management will be pending biopsy of the above mass to include six-month follow-up MRI for further evaluation of stability. RIGHT BREAST: BI-RADS 2 benign. RECOMMENDATIONS: Recommend MRI guided core needle biopsy of the left breast at this time. Recommend six-month follow-up MRI for further evaluation of stability of other enhancing foci in the left breast. Electronically signed by: Cara Rodriges DO 04/23/2025 09:45 PM EDT
[2025-04-20] MEDS: gadobutroL 10 ML VIAL IVPUSH (14:03)
--- OUTSIDE RECORDS SUMMARY | 2025-04-20 14:07 | XMS_ITS | Encounter Summary ---
Author Organization [employer] Address 75 [facility] 7 [place] [address] Care Team Providers Care Smoking Pipe Driller And Threader Name Role Phone Shereen Latham MD Primary Care Provider [phone] Nupur Bullock PharmD Unavailable Sury Benitez Unavailable [phone] Nirali Madrid OD Unavailable iL Grande MD Unavailable [phone] Anselmo Gates MD Unavailable Margaret Holman Unavailable Herberth Stokes MD Unavailable [phone] Hilton Palacios MD Unavailable [phone] Aaron Pringle MD Unavailable [phone] Encounter Details Date Type Department Care Team (Late st Contact Info) Description 05/02/2024 Orders Only [facility] 230 [place], [place] [phone] Shereen Latham MD 230 [place], [place] [phone] Gout, unspecified cause, unspecified chronicity, unspecified site [...] Description 04/25/2025 2:30 PM EDT Medication Management [facility] [address] [place] [address] Nupur Bullock, PharmD 230 [place] [address] 04/26/2025 9:30 AM EDT Office Visit [facility] [address] [place] [address] Shereen Latham MD [address] [place] [address] 04/28/2025 2:00 PM EDT Office Visit [facility] [address] [place] [address] Paz-Connor, Isa, DDS [address] [place] [address] 05/08/2025 11:00 AM EDT Office Visit [facility] [address] [place] [address] documented as of this encounter Visit Diagnoses Diagnosis Gout, unspecified cause, unspecified chronicity, unspecified site- Primary documented in this encounter Additional Health Concerns Assessment Noted Time PHQ-9 Depression Total Score: 23 024 1:45 PM EDT documented as of this encounter Care Teams Smoking Pipe Driller And Threader Relationship Specialty Start Date End Date Shereen Latham MD [address] [place] [address] PCP - General Family Medicine 11/02/18 Nupur Bullock, CharleneD [address] [place] [address] Pharmacist Internal Medicine 08/09/24 Sury Benitez [address] [place] [address] [place] [address] Pulmonary Disease 09/27/24 Nirali Madrid OD [address] [place] [address] Optometry 10/27/24 Li Grande MD [address] [place] [address] Hematology and Oncology 10/27/24 Anselmo Gates MD [address] [facility] [address] [place] [address] Orthopaedic Surgery 10/27/24 Margaret Holman 11 [facility] 3rd [place] [address] Cardiology 10/27/24 Herberth Stokes MD 11 [facility] [address] [place] [address] Gastroenterology 10/27/24 Hilton Palacios MD 15 [facility], [address] [place] [address] Neurology 02/06/25 Aaron Pringle MD 11 [facility] 3rd [place] [address] General Surgery 03/07/25 Pily Delaney Slip DumperSoftware Licensing Analyst 07/22/24 Elie Vicky [facility] 12/29/24 documented as of this encounter
== END 2025-04-20 13:01 | disposition home or self-care (01) ==
LOC: HO.MRI 13:00
PROVIDERS: PCP Family Medicine; Visit Provider Surgery
DX: C50.919 Malignant neoplasm of unspecified site of unspecified female breast (principal); N60.92 Unspecified benign mammary dysplasia of left breast
CPT/HCPCS: 77049; A9585

== ENCOUNTER 2025-05-15 13:40 | Outpatient (REF) | payer MEDICAID, SELFPAY ==
--- OUTSIDE RECORDS SUMMARY | 2025-05-15 14:52 | XMS_ITS | Encounter Summary ---
Author Organization [employer] Address 75 [facility] 7 [place] [address] Care Team Providers Care Store Hand Name Role Phone Shereen Latham MD Primary Care Provider [phone] Nupur Bullock PharmD Unavailable Sury Benitez Unavailable [phone] Nirali Madrid OD Unavailable [phone] Li Grande MD Unavailable [phone] Anselmo Gates MD Unavailable Margaret Holman Unavailable Herberth Stokes MD Unavailable [phone] iHlton Palacios MD Unavailable Aaron Pringle MD Unavailable [phone] Encounter Details Date Type Department Care Team (Late st Contact Info) Description 05/02/2024 Orders Only [facility] 230 [place], [place] [phone] Shereen Latham MD 230 [place], [place] [phone] Gout, unspecified cause, unspecified chronicity, unspecified site [...] Answer Date Recorded Patient Health Questionnaire-9 Score 04/25/2024 Patient Health Questionnaire-9 Score 04/25/2024 Last PHQ-9: Questionnaire Data Not on [...] as of this encounter Plan of Treatment Not on file documented as of this encounter Visit Diagnoses Diagnosis Gout, unspecified cause, unspecified chronicity, unspecified site- Primary documented in this encounter Additional Health Concerns Assessment Noted Time PHQ-9 Depression Total Score: 024 1:45 PM EDT documented as of this encounter Care Teams Store Hand Relationship Specialty Start Date End Date Noa, Shereen, MD 230 [place] [address] PCP - General Family Medicine 11/02/18 Nupur Bullock, CharleneD 230 [place] [address] Pharmacist Internal Medicine 08/09/24 Sury Benitez [address] [place] [address] [address] [place] [address] Pulmonary Disease 09/27/24 Nirali Madrid OD [address] [place] [address] Optometry 10/27/24 Li Grande MD [address] [place] [address] Hematology and Oncology 10/27/24 Anselmo Gates MD 10 [facility] [address] [place] [address] Orthopaedic Surgery 10/27/24 Margaret Holman 11 [facility] 3rd [place] [address] Cardiology 10/27/24 Herberth Stokes MD 11 [facility] [address]rd [place] [address] Gastroenterology 10/27/24 Hliton Palacios MD 15 [facility], [address] [place] [address] Neurology 02/06/25 Aaron Pringle MD 11 [facility] [address]rd [place] [address] General Surgery 03/07/25 Pily Delaney Aviation Warfare Systems OperatorRevenue Cycle Analyst 07/22/24 Elie BRASHER [facility] Psychology 12/29/24 documented as of this encounter
--- OUTSIDE RECORDS SUMMARY | 2025-05-15 14:52 | XMS_ITS | Clinical Summary ---
Author Organization [employer] [facility] it Address [address] [place] [address] Care Team Providers Care Chef Teacher Name Role Phone Shereen Latham MD Primary Care Provider [phone] Social History Tobacco Use Types Packs/Day Years [...] COVID-19 Vaccine (2 - season) 2024 02/09/2021 Hepatitis C Screening 08/11/2024 Social Influencers of Health Screening 08/11/2024 Hepatitis A Vaccines (2 of 2 - Risk 2-dose series) 12/30/2024 06/29/2024 Depression Screening 06/07/2025 06/07/2024 Influenza Vaccine (#1) 2025 09/06/2015 Hypertension/CHF/CAD Annual BMP Blood Test [...] Pneumococcal Vaccine: 50+ Years Completed 03/30/2024, 08/23/2008 HIB Vaccines Aged Out [...] age to complete this topic Care Teams Chef Teacher Relationship Specialty Start Date End Date Shereen Latham MD [address] [place] [phone] PCP - General 01/13/1996
[2025-05-15 17:36] LABS: Magnesium 1.6 mg/dL (1.6-2.6)
== END 2025-05-15 13:41 | disposition home or self-care (01) ==
LOC: HO.HHCL 13:40
PROVIDERS: PCP Family Medicine; Visit Provider Family Medicine
DX: E83.42 Hypomagnesemia (principal)
CPT/HCPCS: 36415; 82306; 83735

== ENCOUNTER → 2025-05-18 08:31 | Outpatient (BNV) | payer MEDICAID, SELFPAY | PROVIDERS: PCP Family Medicine; Visit Provider Internal Medicine | DX: N63.23 Unspecified lump in the left breast, lower outer quadrant (principal); Z85.3 Personal history of malignant neoplasm of breast; R92.322 Mammographic fibroglandular density, left breast | CPT/HCPCS: 19085; 77065 ==

== ENCOUNTER 2025-05-18 08:38 | Outpatient (REF) | payer MEDICAID, SELFPAY ==
--- NOTE | ~2025-05-18 | MR_ITS ---
EXAMINATION: MR GUIDED VACUUM-ASSISTED CORE BIOPSY BREAST, LEFT MM DIGITAL MAMMOGRAPHY POST BIOPSY, LEFT CLINICAL INFORMATION: Recent left irritated core needle biopsy with pathology of atypical ductal hyperplasia.. History of right breast cancer status post mastectomy. COMPARISON: Comparison is made with available prior examinations. TECHNIQUE/PROCEDURE: Informed consent was obtained from the patient after discussion of the benefits, risks, and alternatives to biopsy today with patient understanding information. Gave opportunity for questions. Patient signed consent form. Biopsy is performed under MRI guidance using breast surface coil. Imaging is performed without and with use gadolinium contrast. [employer] introducer localization system is used with grid. LESION: Lower outer breast enhancing oval mass. LOCAL ANESTHESIA: 6 mL 1% lidocaine; 10 mL 1% lidocaine with epinephrine. NEEDLE: Glowpoint 9-gauge vacuum assisted core biopsy device. APPROACH: Lateral. CORES: 12. CLIP: Barbell shaped. POSTPROCEDURE UNILATERAL DIGITAL MAMMOGRAM: Mammography is performed using digital mammography in CC and MLO views. There are scattered areas of fibroglandular density (ACR BI-RADS breast composition Category b). The clip marker is in position. No gross hematoma. The patient tolerated the procedure well. No immediate complications. Home instructions reviewed with the patient. Final pathology results are pending. MR/MR guided breast biopsy LT IMPRESSION: 1. Status post MRI guided vacuum-assisted core biopsy left breast with clip placement. 2. Final pathology results pending. An addendum report will be issued. Electronically signed by: Cara Rodriges DO 05/19/2025 08:51 PM EDT
--- NOTE | ~2025-05-18 | MM_ITS ---
EXAMINATION: MR GUIDED VACUUM-ASSISTED CORE BIOPSY BREAST, LEFT MM DIGITAL MAMMOGRAPHY POST BIOPSY, LEFT CLINICAL INFORMATION: Recent left irritated core needle biopsy with pathology of atypical ductal hyperplasia.. History of right breast cancer status post mastectomy. COMPARISON: Comparison is made with available prior examinations. TECHNIQUE/PROCEDURE: Informed consent was obtained from the patient after discussion of the benefits, risks, and alternatives to biopsy today with patient understanding information. Gave opportunity for questions. Patient signed consent form. Biopsy is performed under MRI guidance using breast surface coil. Imaging is performed without and with use gadolinium contrast. [employer] introducer localization system is used with grid. LESION: Lower outer breast enhancing oval mass. LOCAL ANESTHESIA: 6 mL 1% lidocaine; 10 mL 1% lidocaine with epinephrine. NEEDLE: [employer] 9-gauge vacuum assisted core biopsy device. APPROACH: Lateral. CORES: 12. CLIP: Barbell shaped. POSTPROCEDURE UNILATERAL DIGITAL MAMMOGRAM: Mammography is performed using digital mammography in CC and MLO views. There are scattered areas of fibroglandular density (ACR BI-RADS breast composition Category b). The clip marker is in position. No gross hematoma. The patient tolerated the procedure well. No immediate complications. Home instructions reviewed with the patient. Final pathology results are pending. MM/MM tomosynthesis diagnostic LT IMPRESSION: 1. Status post MRI guided vacuum-assisted core biopsy left breast with clip placement. 2. Final pathology results pending. An addendum report will be issued. Electronically signed by: Cara Rodriges DO 05/19/2025 08:51 PM EDT
--- OUTSIDE RECORDS SUMMARY | 2025-05-18 08:47 | XMS_ITS | Clinical Summary ---
Author Organization [employer] [facility] it Address [address] [place] [address] Care Team Providers Care Steward/Stewardess Third Name Role Phone Shereen Latham MD Primary Care Provider [phone] Social History Tobacco Use Types Packs/Day Years [...] age to complete this topic Care Teams Steward/Stewardess Third Relationship Specialty Start Date End Date Shereen Latham MD [address] [place] [phone] PCP - General 01/13/1996
--- OUTSIDE RECORDS SUMMARY | 2025-05-18 08:47 | XMS_ITS | Encounter Summary ---
Author Organization [employer] Address 75 [facility] 7 [place] [address] Care Team Providers Care Independent Beauty Consultant Name Role Phone Shereen Latham MD Primary Care Provider [phone] Nupur Bullock PharmD Unavailable Sury Benitez Unavailable [phone] Nirali Madrid OD Unavailable Li Grande MD Unavailable [phone] Anselmo Gates MD Unavailable Margaret Holman Unavailable Herberth Stokes MD Unavailable [phone] Hilton Palacios MD Unavailable Aaron Pringle MD Unavailable [phone] Encounter Details Date Type Department Care Team (Late st Contact Info) Description 05/02/2024 Orders Only [facility] 230 [place], [place] [phone] Shereen Latham MD 230 [place], [place] [phone] Gout, unspecified cause, unspecified chronicity, unspecified site [...] Care Team (Late st Contact Info) Description 05/24/2025 11:30 AM EDT Office Visit [facility] [address] [place] [address] Shereen Latham MD 230 [place] [address] documented as of this encounter Visit Diagnoses Diagnosis Gout, unspecified cause, unspecified chronicity, unspecified site- Primary documented in this encounter Additional Health Concerns Assessment Noted Time PHQ-9 Depression Total Score: 23 024 1:45 PM EDT documented as of this encounter Care Teams Independent Beauty Consultant Relationship Specialty Start Date End Date Shereen Latham MD 230 [place] [address] PCP - General Family Medicine 11/02/18 Nupur Bullock PharmD 230 [place] [address] Pharmacist Internal Medicine 08/09/24 05/15/25 Sury Benitez [address] [place] [address] [address] [place] [address] Pulmonary Disease 09/27/24 Nirali Madrid OD [address] [place] [address] Optometry 10/27/24 Li Grande MD [address] [place] [address] Hematology and Oncology 10/27/24 Anselmo Gates MD [address] [place] [address] Orthopaedic Surgery 10/27/24 Margaret Holman [address] 3rd [place] [address] Cardiology 10/27/24 Herberth Stokes MD [address] [facility] [address] 3rd [place] [address] Gastroenterology 10/27/24 Hilton Palacios MD [address] [place] [address] DR, [address] [place] [address] Neurology 02/06/25 Aaron Pringle MD [address] [place] [address] 3rd Floor [place] [address] General Surgery 03/07/25 Pily Delaney Editor ProducerBurn Table Operator 07/22/[address] [facility] Psychology 12/29/24 documented as of this encounter
[2025-05-18] MEDS: Lidocaine HCl 1%/Epi 1:100,000 10 ML VIAL SUBCUT (11:17)
== END 2025-05-18 08:39 | disposition home or self-care (01) ==
LOC: HO.MRI 08:38
PROVIDERS: PCP Family Medicine; Visit Provider Surgery
DX: R92.8 Other abnormal and inconclusive findings on diagnostic imaging of breast (principal); N60.92 Unspecified benign mammary dysplasia of left breast
CPT/HCPCS: 19085; 77061; 77065; 88305; 88341; 88342; 88360; A4648; A9585; J2004

== ENCOUNTER 2025-05-24 08:44 | Outpatient (REF) | payer MEDICAID, SELFPAY ==
--- OUTSIDE RECORDS SUMMARY | 2025-05-24 09:01 | XMS_ITS | Clinical Summary ---
Author Organization [facility] Address [address] [place] [address] Care Team Providers Care Underwriter Mortgage Loan Name Role Phone Shereen Latham MD Primary Care Provider [phone]- [phone] Social History Tobacco Use Types Packs/Day Years [...] Influencers of Health Screening 08/11/2024 Depression Screening 11/02/2024 Hepatitis A Vaccines (2 of 2 - Risk 2-dose series) 12/30/2024 06/29/2024 Influenza Vaccine (#1) 2025 09/06/2015 Hypertension/CHF/CAD Annual [...] age to complete this topic Care Teams Underwriter Mortgage Loan Relationship Specialty Start Date End Date Shereen Latham MD [address] [place] [phone] PCP - General 01/13/1996
--- OUTSIDE RECORDS SUMMARY | 2025-05-24 09:01 | XMS_ITS | Clinical Summary ---
Author Organization [facility] Address [address] [facility] [address] [place] [address] Phone Care Team Providers Care Hand Finisher Name Role Phone Unavailable Primary Care Provider Unavailabl e Social History Tobacco Use Types Packs/Day Years Used Date Smoking Tobacco: Never Assessed Education Answer Date Recorded Are you interested in more education? Not on kuldeep e 07/27/2024 Are you concerned about learning? Not on file 07/27/2024 No 07/27/2024 No 07/27/2024 Digital Access Answer Date Recorded No 07/27/2024 No 07/27/2024 Reliable internet access at home? Not on file 07/27/2024 Device with a working camera? Not on file Comments Unknown Sex and Gender Information Value Date Recorded Sex Assigned at Not on file Legal Sex Female 4:00 PM EDT Gender Identity Not on file Sexual Orientation Not on file Plan of Treatment Not on file Medical Devices Not on file Additional Source Comments The information contained in this document represents components of the legal health record. It is not the complete legal health record.[facility]
--- OUTSIDE RECORDS SUMMARY | 2025-05-24 09:01 | XMS_ITS | Encounter Summary ---
Author Organization [employer] Address [address] [facility] 7 [place] [address] Care Team Providers Care Parts Casting Machine Operator Name Role Phone Shereen Latham MD Primary Care Provider [phone] Nupur Bullock PharmD Unavailable Sury Benitez Unavailable [phone] Nirali Madrid OD Unavailable Li Grande MD Unavailable [phone] Anselmo Gates MD Unavailable Margaret Holman Unavailable Herberth Stokes MD Unavailable [phone] Hilton Palacios MD Unavailable [phone] Aaron Pringle MD Unavailable [phone] Encounter Details Date Type Department Care Team (Late st Contact Info) Description 05/02/2024 Orders Only [facility] [address] [place], [place] [phone] Shereen Latham MD [address] [place], [place] [phone] Gout, unspecified cause, unspecified chronicity, unspecified site [...] Description 05/24/2025 11:30 AM EDT Office Visit [facility] [address] [place] [address] Shereen Latham MD [address] [place] [address] documented as of this encounter Visit Diagnoses Diagnosis Gout, unspecified cause, unspecified chronicity, unspecified site- Primary Class 1 obesity due to excess calories with serious comorbidity and body mass index (BMI) of 31.0 to 31.9 in adult- Primary Dietary counseling Dietary surveillance and counseling Exercise counseling documented in this encounter Additional Health Concerns Assessment Noted Time PHQ-9 Depression Total Score: 23 024 1:45 PM EDT documented as of this encounter Care Teams Parts Casting Machine Operator Relationship Specialty Start Date End Date Shereen Latham MD [address] [place] [address] PCP - General Family Medicine 11/02/18 Nupur Bullock PharmD [address] [place] [address] Pharmacist Internal Medicine 08/09/24 05/15/[address]z [address] [place] [address] [address] [place] [address] Pulmonary Disease 09/27/24 Nirali Madrid OD [address] [place] [address] Optometry 10/27/24 Li Grande MD [address] [place] [address] Hematology and Oncology 10/27/24 Anselmo Gates MD [address] [facility] [address] [place] [address] Orthopaedic Surgery 10/27/24 Margaret Holman [address] [facility] [address] [place] [address] Cardiology 10/27/24 Herberth Stokes MD [address] [facility] [address] [place] [address] Gastroenterology 10/27/24 Hilton Palacios MD [address] [place] [address] DR, [address] [place] [address] Neurology 02/06/25 Aaron Pringle MD [address] [place] [address] Drive 3rd [place] [address] General Surgery 03/07/25 Pily Delaney Big Data Platform ArchitectDirector Trade 07/22/24 Elie BRASHER [facility] Psychology 12/29/24 documented as of this encounter
== END 2025-05-24 08:45 | disposition home or self-care (01) ==
LOC: HO.MAMMO 08:44
PROVIDERS: PCP Family Medicine; Visit Provider Surgery
DX: Z13.89 Encounter for screening for other disorder (principal)

== ENCOUNTER 2025-06-01 09:30 | Outpatient (REF) | payer MEDICAID, SELFPAY ==
--- NOTE | ~2025-06-01 | MM_ITS ---
EXAMINATION: MR GUIDED VACUUM-ASSISTED CORE BIOPSY BREAST, LEFT MM DIGITAL MAMMOGRAPHY POST BIOPSY, LEFT CLINICAL INFORMATION: History of prior right breast cancer status post mastectomy with implant. 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 An additional enhancing mass in the left breast here for MRI guided core needle biopsy.. COMPARISON: Available priors on PACS. TECHNIQUE/PROCEDURE: Informed consent was obtained from the patient after discussion of the benefits, risks, and alternatives to biopsy today. Patient appeared to understand. Gave opportunity for questions. Patient signed consent form. Biopsy is performed under MRI guidance using breast surface coil. Imaging is performed without and with use of Gadavist gadolinium contrast. [employer] introducer localization system is used with grid. LESION: Retroareolar region middle depth. LOCAL ANESTHESIA: 6 mL 1% lidocaine; 10 mL 1% lidocaine with epinephrine. NEEDLE: [employer] 9-gauge vacuum assisted core biopsy device. APPROACH: Lateral. CORES: 12. CLIP: TriMark cylinder shaped. POSTPROCEDURE UNILATERAL DIGITAL MAMMOGRAM: Mammography is performed using digital mammography in CC and MLO views. There are scattered areas of fibroglandular density (ACR BI-RADS breast composition Category b). The clip marker is in position. No gross hematoma. The patient tolerated the procedure well. No immediate complications. Home instructions reviewed with the patient. Final pathology results are pending. MM/MM tomosynthesis diagnostic LT IMPRESSION: 1. Status post MRI guided vacuum-assisted core biopsy left breast with clip placement. 2. Final pathology results pending. An addendum report will be issued. Electronically signed by: Cara Rodriges DO 06/01/2025 01:21 PM EDT
--- NOTE | ~2025-06-01 | MR_ITS ---
EXAMINATION: MR GUIDED VACUUM-ASSISTED CORE BIOPSY BREAST, LEFT MM DIGITAL MAMMOGRAPHY POST BIOPSY, LEFT CLINICAL INFORMATION: History of prior right breast cancer status post mastectomy with implant. 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 An additional enhancing mass in the left breast here for MRI guided core needle biopsy.. COMPARISON: Available priors on PACS. TECHNIQUE/PROCEDURE: Informed consent was obtained from the patient after discussion of the benefits, risks, and alternatives to biopsy today. Patient appeared to understand. Gave opportunity for questions. Patient signed consent form. Biopsy is performed under MRI guidance using breast surface coil. Imaging is performed without and with use of Gadavist gadolinium contrast. [employer] introducer localization system is used with grid. LESION: Retroareolar region middle depth. LOCAL ANESTHESIA: 6 mL 1% lidocaine; 10 mL 1% lidocaine with epinephrine. NEEDLE: [employer] 9-gauge vacuum assisted core biopsy device. APPROACH: Lateral. CORES: 12. CLIP: TriMark cylinder shaped. POSTPROCEDURE UNILATERAL DIGITAL MAMMOGRAM: Mammography is performed using digital mammography in CC and MLO views. There are scattered areas of fibroglandular density (ACR BI-RADS breast composition Category b). The clip marker is in position. No gross hematoma. The patient tolerated the procedure well. No immediate complications. Home instructions reviewed with the patient. Final pathology results are pending. MR/MR guided breast biopsy LT IMPRESSION: 1. Status post MRI guided vacuum-assisted core biopsy left breast with clip placement. 2. Final pathology results pending. An addendum report will be issued. Electronically signed by: Cara Rodriges DO 06/01/2025 01:21 PM EDT
--- OUTSIDE RECORDS SUMMARY | 2025-06-01 09:52 | XMS_ITS | Clinical Summary ---
Author Organization [facility] Address [address] [facility] [address] [place] [address] Phone Care Team Providers Care Psychological Tests Sales Agent Name Role Phone Unavailable Primary Care Provider [...] It is not the complete legal health record.[facility]
--- OUTSIDE RECORDS SUMMARY | 2025-06-01 09:52 | XMS_ITS | Clinical Summary ---
Author Organization [facility] Address [address] [place] [address] Phone Care Team Providers Care Drill Press Operator For Metal Name Role Phone Shereen Latham MD Primary Care Provider [phone] Social History Tobacco Use Types Packs/Day Years [...] on patient's age to complete this topic Insurance MEDICAID - [place] Care Teams Drill Press Operator For Metal Relationship Specialty Start Date End Date [place], [place] Shereen [address] [place] [phone] PCP - General 01/13/1996
[2025-06-01] MEDS: Lidocaine HCl 1%/Epi 1:100,000 10 ML VIAL SUBCUT (11:25)
[2025-06-01] MEDS: Lidocaine HCl 1 % MPF 30 ML VIAL SUBCUT (11:44)
[2025-06-01] MEDS: Sodium Bicarbonate 8.4% 50 MEQ in Dextrose 5 % 950 ML IV (11:45)
== END 2025-06-01 09:31 | disposition home or self-care (01) ==
LOC: HO.MRI 09:30
PROVIDERS: PCP Family Medicine; Visit Provider Surgery
DX: R92.8 Other abnormal and inconclusive findings on diagnostic imaging of breast (principal)
CPT/HCPCS: 19085; 77061; 77065; 88305; A4648; J2003; J2004

== ENCOUNTER → 2025-06-01 09:40 | Outpatient (BNV) | payer MEDICAID, SELFPAY | PROVIDERS: PCP Family Medicine; Visit Provider Internal Medicine | DX: N63.25 Unspecified lump in the left breast, overlapping quadrants (principal); Z85.3 Personal history of malignant neoplasm of breast | CPT/HCPCS: 19085; 77065 ==

== ENCOUNTER 2025-06-07 14:08 | Outpatient (AMB) | payer MEDICAID, SELFPAY ==
[2025-06-07 14:12] VITALS: BP 106/72; BMI 30.9
--- NOTE | 2025-06-07 14:12 | MHC.OFFVIS ---
Vital Signs 06/07/25 14:12 Height 5 ft 7 in Weight 197 lb BMI 30.9 BP 106/72 Intake Visit Reasons: vaginal lesion/DO NOT RS Allergies amoxicillin (AMOXICILLIN) Allergy (Intermediate, Verified 04/19/25 13:29) rash, rash/itching sulfamethoxazole (From BACTRIM) Allergy (Intermediate, Verified 04/19/25 13:29) RASH trimethoprim (From BACTRIM) Allergy (Intermediate, Verified 04/19/25 13:29) RASH hydrocodone (Hydrocodone) Allergy (Mild, Verified 04/19/25 13:29) ITCH ibuprofen (From Motrin) Allergy (Mild, Verified 04/19/25 13:29) UPSET STOMACH latex (Latex) Allergy (Mild, Verified 04/19/25 13:29) ITCH HPI Comments Details: Presenting complaining of bilateral vulvar bumps on and off over the last few years [facility] Medical History Anemia Cardiomyopathy Gout Pulmonary nodule Arthritis Fibromyalgia Anxiety and depression Lower back pain Panic attack H/O ETOH abuse Breast cancer Hypertension Surgical History Hx of right mastectomy H/O colonoscopy History of carpal tunnel release Hx of tubal ligation History of breast lump/mass excision H/O: hysterectomy Family History Mother Heart disease Alzheimers disease Father Heart disease Brother Asthma Heart disease Social History Household Members: None Housing: Apartment Housing Other:: 4th floor. No elevator Are you a primary vision care associate to a significant other at home: No Do you presently have visiting nurse or other home services: Yes (Hotel Controller ) Alcohol intake: current Alcohol intake frequency: holidays/special occasions only Alcohol type: hard liquor Comment: socially every 3-4 months Patient Tobacco Use Status: Current someday Tobacco user Tobacco use type: Cigarette Cigarettes Per Day: 5 Years Smoked: 38YRS e-Cigarette/Vaping Use: Never Used Second Hand Smoke Exposure: Yes Advance Directives Date on File: 02/11/22 service: No Current occupational status: disabled Sexually active: No Gender identity: Female Female Reproductive History Menstrual Age of Menarche: 7 control method: permanent sterilization Review of Systems Const All systems reviewed & are unremarkable except as noted in HPI and below Physical Exam Vital Signs: Last Vital Signs BP 106/72 06/07/25 14:12 BMI result Body Mass Index 30.9 General: Yes no CVA tenderness External Female Exam: No normal external appearance (sebaceous cyst 1 on right and 1 in the left) and normal appearance of the urethra Speculum Exam - Vagina: normal appearance of the vagina, normal palpation, no lesions and no masses Speculum Exam - Cervix: normal appearance of the cervix, normal palpation, no lesions, no masses and nontender Bimanual exam- vagina & uterus: normal bimanual exam, normal palpation, uterine size normal, normal palpation, uterine shape normal, No Cervical tenderness present and non-tender Bimanual Exam- Adnexa, other: normal adnexae Back/Spine/Pelvis Back: no CVA tenderness Assessment & Plan Assessment & Plan (1) Sebaceous cyst of labia: Code(s): N90.7 - Vulvar cyst Category: Medical Plan: Discussed with the patient the finding on pelvic exam sebaceous cyst recommended discontinue shaving the affected area. Instructions given the patient to call if persistent large or tender to call for I&D. All questions answered, the patient verbalized understanding Coding Level of Care Code New Pt Level 3 (33269) Diagnoses Sebaceous cyst of labia N90.7
--- OUTSIDE RECORDS SUMMARY | 2025-06-07 14:41 | XMS_ITS | Encounter Summary ---
Author Organization [employer] Address [address] [facility] 7t [place] [address] Care Team Providers Care Food Storeroom Clerk Name Role Phone Shereen Latham MD Primary Care Provider [phone] Nupur Bullock PharmD Unavailable [phone] Sury Benitez Unavailable Julius, Nirali OD Unavailable Li Grande MD Unavailable [phone] Anselmo Gates MD Unavailable Margaret Holman Unavailable Herberth Stokes MD Unavailable [phone] Hilton Palacios MD Unavailable [phone] Aaron Pringle MD Unavailable [phone] Encounter Details Date Type Department Care Team (Late st Contact Info) Description 05/02/2024 Orders Only [facility] [address] [place], [place] [phone] Shereen Latham MD [address] [place], [place] [phone] Gout, unspecified cause, unspecified chronicity, unspecified site [...] Questionnaire-9 Score 04/25/2024 Patient Health Questionnaire-9 Score 23 04/25/2024 [...] Care Team (Late st Contact Info) Description 07/27/2025 10:30 AM EDT Office Visit [facility] [address] [place] [address] Shereen Latham MD [address] [place] [address] documented as of this encounter Visit Diagnoses Diagnosis Gout, unspecified cause, unspecified chronicity, unspecified site- Primary documented in this encounter Additional Health Concerns Assessment Noted Time PHQ-9 Depression Total Score: 23 04/25/ 024 1:45 PM EDT documented as of this encounter Care Teams Food Storeroom Clerk Relationship Specialty Start Date End Date Shereen Latham MD [address] [place] [address] PCP - General Family Medicine 11/02/18 Nupur Bullock, CharleneD [address] [place] [address] Pharmacist Internal Medicine 08/09/24 05/15/25 Sury Benitez [address] [place] [address] [facility] [address] [place] [address] Pulmonary Disease 09/27/24 Nirali Madrid OD [address] [place] [address] Optometry 10/27/24 Li Grande MD [address] [place] [address] Hematology and Oncology 10/27/24 Anselmo Gates MD [address] [facility] [address] [place] [address] Orthopaedic Surgery 10/27/24 Margaret Holman [address] [facility] 3rd [place] [address] Cardiology 10/27/24 Herberth Stokes MD [address] [facility] 3[address] [place] [address] Gastroenterology 10/27/24 Hilton Palacios MD [address] [place] [address], [address] [place] [address] Neurology 02/06/25 Aaron Pringle MD [address] [place] [address] 3rd Floor [place] [address] General Surgery 03/07/25 Pily Delaney Finishing Powder Press OperatorBooster Plant Operator 07/22/24 Elie BRASHER [facility] Psychology 12/29/24 documented as of this encounter
--- OUTSIDE RECORDS SUMMARY | 2025-06-07 14:41 | XMS_ITS | Clinical Summary ---
Author Organization [address] [facility] Address [address] [place] [address] Phone Care Team Providers Care Commercial Reporter Name Role Phone Shereen Latham MD Primary Care Provider [phone] Social History Tobacco Use Types Packs/Day Years [...] topic Insurance MEDICAID - [place] Care Teams Commercial Reporter Relationship Specialty Start Date End Date [place], [place] Shereen [address] [place] [phone] PCP - General 01/13/1996
--- OUTSIDE RECORDS SUMMARY | 2025-06-07 14:41 | XMS_ITS | Clinical Summary ---
Author Organization [facility] Address [address] [facility] [address] [place] [address] Phone Care Team Providers Care Licensed Retail Supervisor Name Role Phone Unavailable Primary Care Provider [...] It is not the complete legal health record.[facility]
== END 2025-06-07 14:34 | disposition home or self-care (01) ==
LOC: HO.HWS 14:08
PROVIDERS: PCP Family Medicine; Visit Provider Obstetrics & Gynecology
DX: N90.7 Vulvar cyst (principal)
CPT/HCPCS: 99203

== ENCOUNTER → 2025-06-07 14:08 | Outpatient (BNVA) | payer MEDICAID, SELFPAY | PROVIDERS: PCP Family Medicine; Visit Provider Obstetrics & Gynecology | DX: K64.9 Unspecified hemorrhoids (principal); K58.2 Mixed irritable bowel syndrome; R14.0 Abdominal distension (gaseous); K59.01 Slow transit constipation; N90.7 Vulvar cyst | CPT/HCPCS: 99202; 99212 ==

== ENCOUNTER 2025-06-07 15:33 | Outpatient (AMB) | payer MEDICAID, SELFPAY ==
--- NOTE | 2025-06-07 15:35 | A.OFFVIS_ITS ---
Vital Signs 06/07/25 15:49 Height 5 ft 7 in Weight 197 lb BMI 30.9 BP 144/82 H Blood Pressure Location Rt brachial Position Sitting Pulse 112 H Pulse Source Pulse Oximeter Pulse Oximetry (%) 98 Oxygen Delivery Method Room Air Intake Visit Reasons: Follow up Hemorrhoids Intake Note: Est pt for consultation per hemorrhoids. Pt last seen for colo w/ Dr. Stokes 2023. CC; C.O. hemorrhoid exacerbation x2-3 mos. Pt states that she has known about her hemorrhoids for sometime but has had an acute exacerbation. Pt reports experiencing rectal bleeding (BRB), in moderate to large amounts, as well as rectal pain, nausea, and bloating. Outside Plant Supervisor Required: No Accompanied by: Self / Same As Patient Allergies amoxicillin (AMOXICILLIN) Allergy (Intermediate, Verified 06/07/25 15:35) rash, rash/itching sulfamethoxazole (From BACTRIM) Allergy (Intermediate, Verified 06/07/25 15:35) RASH trimethoprim (From BACTRIM) Allergy (Intermediate, Verified 06/07/25 15:35) RASH hydrocodone (Hydrocodone) Allergy (Mild, Verified 06/07/25 15:35) ITCH ibuprofen (From Motrin) Allergy (Mild, Verified 06/07/25 15:35) UPSET STOMACH latex (Latex) Allergy (Mild, Verified 06/07/25 15:35) ITCH HPI HPI Follow up Hemorrhoids: Details: LAST VISIT 10/21/2023 Positive colorectal cancer screening using Cologuard test Hemorrhoid IBS (irritable bowel syndrome) Postprandial abdominal bloating Plan Patient can continue taking Citrucel in the morning and take senna in the evening to tablets. Patient was encouraged to increase fluid intake and activity and better bowel motility. Patient has a colonoscopy scheduled for January and will call the office weekly to see if there is any cancellations get it done sooner. Patient has small perirectal abscess. Patient will use Epsom salt Sitz baths. She was encouraged to use warm compresses. Patient will go over low FODMAP diet again. Patient does have a list at home of food recommended as well as food to avoid. I will see patient in 2 months, sooner on as needed basis. Patient is agreeable to this plan and verbalizes understanding of instructions. She was given the opportunity to ask questions and all questions answered. ? Thank you for allowing me to participate in her care New sennosides (Natural Senna Laxative) 17.2 mg (2 x 8.6 mg) PO BEDTIME 60 tabs 3RF constipation K59.00 Discontinued bisacodyl (Dulcolax (bisacodyl)) Discontinued Reason: Doctor's Order 10 mg (2 x 5 mg) PO BEDTIME 60 tabs 4RF COLONOSCOPY Findings: Terminal Ileum: Not evaluated Cecum: Normal Ascending Colon: Two 10 - 12 mm sessile polyps in the distal ascending colon - removed with a hot snare. One of the polypectomy sites was closed with 1 hemoclip. Moderate diverticulosis throughout the entire colon Transverse Colon: Moderate diverticulosis throughout the entire colon Descending Colon: Moderate diverticulosis throughout the entire colon Sigmoid Colon: Two 10 -15 mm sessile polyps - removed with a hot snare. Severe diverticulosis with luminal narrowing Rectum: A 15 to 18 mm sessile polyp at 15 cms - removed with a hot snare Ano-rectum: Moderate internal hemorrhoids Colon preparation: Good after copious irrigation. [place] Bowel Preparation Scale Right colon; 2 Transverse colon: 2 Left colon; 2 (0 = Unprepared colon segment with mucosa not seen due to solid stool that cannot be cleared. 1 = Portion of mucosa of the colon segment seen, but other areas of the colon segment not well seen due to staining, residual stool and/or opaque liquid. 2 = Minor amount of residual staining, small fragments of stool and/or opaque liquid, but mucosa of colon segment seen well. 3 = Entire mucosa of colon segment seen well with no residual staining, small fragments of stool or opaque liquid) Impression and Post Procedure Diagnosis: Colonoscopy Findings: Five medium sized polyps were removed Moderate diverticulosis seen in the entire colon Moderate hemorrhoids on retroflexed exam. Plan: I will send a letter with biopsy results. Repeat Colonoscopy in 2 years if multiple polyps are adenomatous and 10 year if polyps are hyperplastic. Above findings were reviewed with the patient and relevant handouts were given and the discharge area. PATHOLOGY RESULTS Diagnosis A. Colon, ascending, polypectomy x2: Tubular adenoma (2); negative for high- grade dysplasia. B. Colon, sigmoid, polypectomy x2: Tubular adenoma (1); inflammatory polyp (1); negative for high- grade dysplasia. C. Rectum, polypectomy: Tubular adenoma; negative for high-grade dysplasia; completely excised TODAY'S VISIT: Patient is here today for requested visit. Patient had colonoscopy last year and tubular adenoma found as well as moderate hemorrhoids. Patient reports that in the past couple months she has been dealing with hemorrhoids. She states that they are very painful and itching. Patient reports occasional diarrhea and then constipation. Patient is not on any bowel management. Not taking any fibe r supplements. Patient reports that she is drinking plenty fluids. Admits to straining occasionally. Occasional postprandial abdominal bloating. Denies melena, unintentional weight loss or ribbon like stools. Denies dyspepsia, dysphagia or odynophagia. Taking omeprazole and reports that her symptoms of acid reflux are suppressed. [facility] Medical History Anemia Cardiomyopathy Gout Pulmonary nodule Arthritis Fibromyalgia Anxiety and depression Lower back pain Panic attack H/O ETOH abuse Breast cancer Hypertension Surgical History Hx of right mastectomy H/O colonoscopy History of carpal tunnel release Hx of tubal ligation History of breast lump/mass excision H/O: hysterectomy Family History Mother Heart disease Alzheimers disease Father Heart disease Brother Asthma Heart disease Social History Household Members: None Housing: Apartment Housing Other:: 4th floor. No elevator Are you a primary healthcare facility administrator to a significant other at home: No Do you presently have visiting nurse or other home services: Yes ([employer] ) Alcohol intake: current Alcohol intake frequency: holidays/special occasions only Alcohol type: hard liquor Comment: socially every 3-4 months Patient Tobacco Use Status: Current someday Tobacco user Tobacco use type: Cigarette Cigarettes Per Day: 5 Years Smoked: 38YRS e-Cigarette/Vaping Use: Never Used Second Hand Smoke Exposure: Yes Advance Directives Date on File: 02/11/22 service: No Current occupational status: disabled Gender identity: Female Female Reproductive History Menstrual Age of Menarche: 7 Review of Systems Const Denies weight gain and Denies weight loss ENT Reports no additional complaints, Denies dysphagia and Denies odynophagia Card Reports no additional complaints Resp Reports no additional complaints GI Denies abdominal pain, Denies belching, Denies melena, Denies bloating, Denies change in bowel habits, Reports constipation, Denies dysphagia, Denies excessive flatus, Denies dyspepsia, Denies heartburn, Denies diarrhea, Denies loose stools, Denies nausea, Denies odynophagia and Denies vomiting Reports no additional complaints Musc Reports no additional complaints Neuro Reports no additional complaints Psych Reports no additional complaints Endo Reports no additional complaints Physical Exam Vital Signs: Last Vital Signs Pulse 112 H 06/07/25 15:49 BP 144/82 H 06/07/25 15:49 Pulse Ox 98 06/07/25 15:49 Oxygen Delivery Method Room Air 06/07/25 15:49 BMI result Body Mass Index 30.9 Const General: healthy appearing, no acute distress and well developed Nutritional Appearance: well nourished and obese Orientation/consciousness: patient oriented x3 Resp Effort & Inspection: normal respiratory effort, able to speak in complete sentences, no tracheal deviation and symmetric chest movement Auscultation: clear to auscultation bilaterally Cardio Rate: regular rate GI Inspection: Yes normal to inspection, No distended and Yes obesity Palpation (GI): Soft to palpation, not firm, nontender and No hepatosplenomegaly present Auscultation: normal bowel sounds General: Yes no CVA tenderness Back/Spine/Pelvis Back: no CVA tenderness Skin General skin exam: elasticity normal, turgor normal and dry skin Neuro General: patient oriented x3 Psych Appearance: grossly normal Mental Status: mental status grossly normal Assessment & Plan Assessment & Plan (1) Hemorrhoids: Code(s): K64.9 - Unspecified hemorrhoids Qualifiers: Hemorrhoid type: unspecified Qualified Code(s): K64.9 - Unspecified hemorrhoids (2) Irritable bowel syndrome: Code(s): K58.9 - Irritable bowel syndrome, unspecified Qualifiers: Irritable bowel syndrome type: with both diarrhea and constipation Qualified Code(s): K58.2 - Mixed irritable bowel syndrome (3) Postprandial abdominal bloating: Code(s): R14.0 - Abdominal distension (gaseous) (4) Constipation: Code(s): K59.00 - Constipation, unspecified Qualifiers: Constipation type: slow transit constipation Qualified Code(s): K59.01 - Slow transit constipation Plan Patient will try Sitz baths with Epsom salt. Will send her script for Proctosol and Colace. Referral to General surgery for possible hemorrhoidectomy. Patient was encouraged to increase fiber, fluid intake and activity to promote better bowel motility. Patient will follow-up in our office in 3 months, sooner on as needed basis. She is agreeable to this plan and verbalizes understanding of instructions. She was given the opportunity to ask questions and all questions answered Thank you for allowing me to participate in her care Orders: Referrals General Surgery Referral K64.9 - Unspecified hemorrhoids Medications: New hydrocortisone 2.5% (Proctosol HC) 1 appl IA BID-QID PRN 30 grams 2RF hemorrhoids K64.9 - Unspecified hemorrhoids docusate sodium 100 mg PO BEDTIME 90 caps 3RF K59.00 - Constipation, unspecified methylcellulose (laxative) (Citrucel) take it with full glass of water 500 mg PO DAILY 90 tabs 2RF K59.00 - Constipation, unspecified Coding Level of Care Code Est Pt Level 4 (74483) Complex EM visit Add On G2211 Diagnoses Hemorrhoids, unspecified hemorrhoid type K64.9 Hemorrhoid type: unspecified Irritable bowel syndrome with both constipation and diarrhea K58.2 Irritable bowel syndrome type: with both diarrhea and constipation Postprandial abdominal bloating R14.0 Slow transit constipation K59.01 Constipation type: slow transit constipation Time Spent (min) 35 Comment 25 minutes spent with patient and additional 10 minutes spent reviewing her records
[2025-06-07 15:49] VITALS: BP 144/82; PULSE 112; O2SAT 98; BMI 30.9
== END 2025-06-07 16:13 | disposition home or self-care (01) ==
PROVIDERS: PCP Family Medicine; Visit Provider Nurse Practitioner Family
DX: K64.9 Unspecified hemorrhoids (principal); K58.2 Mixed irritable bowel syndrome; R14.0 Abdominal distension (gaseous); K59.01 Slow transit constipation
CPT/HCPCS: 99214

== ENCOUNTER 2025-06-14 09:43 | Outpatient (REF) | payer MEDICAID, SELFPAY ==
--- NOTE | ~2025-06-14 | MM_ITS ---
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 One site of biopsy which had benign pathology. COMPARISON: [facility] on PACS. TECHNIQUE NEEDLE LOC: Proper informed consent is obtained from the patient after discussion of the procedure, potential risks and complications, and alternatives including declining the procedure today. Patient was given an opportunity for questions. The patient appeared to understand. The patient consented to the procedure and signed the consent form. GUIDANCE: Digital mammography. Site 1 Barbell clip: Atypical ductal hyperplasia APPROACH: Lateral. TARGET: Barbell clip. ANESTHESIA: carbonated lidocaine 1%: . LOCALIZATION SYSTEM: -[employer] LOCallizer Wire-Free Guidance System with 12g needle applicator. -Length: 7 cm. -RADIOFREQUENCY TAG: ID # [id number] Site 2 top hat clip : Atypical ductal hyperplasia APPROACH: Lateral. TARGET: Top hat clip. ANESTHESIA: carbonated lidocaine . LOCALIZATION SYSTEM: -[employer] LOCallizer Wire-Free Guidance System with 12g needle applicator. -Length: 7 cm. -RADIOFREQUENCY TAG: ID # [id number] RF Tag ID confirmed with LOCalizer Guidance System prior to placement. The skin is prepped and local anesthesia administered. The needle is positioned and RFID tag deployed. Final images demonstrate the LOCalizer RF tags to reside adjacent to the marker clips The patient tolerated the procedure well and had no immediate complications. Dressing placed and home instructions reviewed. MM/MM RF Tag device add IMPRESSION: -Status post left breast RFID localization at two sites. Electronically signed by: Cara Rodriges DO 06/14/2025 11:39 AM EDT
--- NOTE | ~2025-06-14 | MM_ITS ---
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 One site of biopsy which had benign pathology. COMPARISON: [facility] on PACS. TECHNIQUE NEEDLE LOC: Proper informed consent is obtained from the patient after discussion of the procedure, potential risks and complications, and alternatives including declining the procedure today. Patient was given an opportunity for questions. The patient appeared to understand. The patient consented to the procedure and signed the consent form. GUIDANCE: Digital mammography. Site 1 Barbell clip: Atypical ductal hyperplasia APPROACH: Lateral. TARGET: Barbell clip. ANESTHESIA: carbonated lidocaine 1%: . LOCALIZATION SYSTEM: -[employer] LOCallizer Wire-Free Guidance System with 12g needle applicator. -Length: 7 cm. -RADIOFREQUENCY TAG: ID # [id number] Site 2 top hat clip : Atypical ductal hyperplasia APPROACH: Lateral. TARGET: Top hat clip. ANESTHESIA: carbonated lidocaine . LOCALIZATION SYSTEM: -[employer] LOCallizer Wire-Free Guidance System with 12g needle applicator. -Length: 7 cm. -RADIOFREQUENCY TAG: ID # [id number] RF Tag ID confirmed with LOCalizer Guidance System prior to placement. The skin is prepped and local anesthesia administered. The needle is positioned and RFID tag deployed. Final images demonstrate the LOCalizer RF tags to reside adjacent to the marker clips The patient tolerated the procedure well and had no immediate complications. Dressing placed and home instructions reviewed. MM/MM RF Tag device LT IMPRESSION: -Status post left breast RFID localization at two sites. Electronically signed by: Cara Rodriges DO 06/14/2025 11:39 AM EDT
--- OUTSIDE RECORDS SUMMARY | 2025-06-14 10:13 | XMS_ITS | Clinical Summary ---
Author Organization [address] [facility] Address [address] [place] [address] Phone Care Team Providers Care Legal Internship Name Role Phone Shereen Latham MD Primary Care Provider [phone] Social History Tobacco Use Types Packs/Day Years [...] 05/23/2024 1:50 PM EDT Plan of Treatment Upcoming Encounters Date Type Department Care Team (Late st Contact Info) Description 08/24/2025 1:00 PM EDT Consult Orthopedic Surgery - [place] [address] [phone] Antony Garrett DPM [address] [address] Health Maintenance Due Date Last Done Comments [...] topic Insurance MEDICAID - [place] Care Teams Legal Internship Relationship Specialty Start Date End Date Noa, MD Shereen [address] [place] [phone] PCP - General 01/13/1996
--- OUTSIDE RECORDS SUMMARY | 2025-06-14 10:13 | XMS_ITS | Encounter Summary ---
Author Organization [facility] Address [address] [facility] [address] [place] [address] Care Team Providers Care Admitting Representative Name Role Phone Shereen Latham MD Primary Care Provider [phone] Nupur Bullock PharmD Unavailable [phone] Sury Benitez Unavailable [phone] Julius, Nirali OD Unavailable Li Grande MD Unavailable [phone] Anselmo Gates MD Unavailable Margaret Holman Unavailable Herberth Stokes MD Unavailable [phone] Hilton Palacios MD Unavailable Aaron Pringle MD Unavailable [phone] Encounter Details Date Type Department Care Team (Late st Contact Info) Description 05/02/2024 Orders Only [facility] [address] [place], [place] [phone] Shereen Latham MD [address] [place], [place] [phone] Gout, unspecified cause, unspecified chronicity, unspecified site [...] Description 07/27/2025 10:30 AM EDT Office Visit [facility] [address] [place] [address] Shereen Latham MD [address] [place] [address] documented as of this encounter Visit Diagnoses Diagnosis Gout, unspecified cause, unspecified chronicity, unspecified site- Primary documented in this encounter Additional Health Concerns Assessment Noted Time PHQ-9 Depression Total Score: 23 04/25/ 024 1:45 PM EDT documented as of this encounter Care Teams Admitting Representative Relationship Specialty Start Date End Date Shereen Latham MD [address] [place] [address] PCP - General Family Medicine 11/02/18 Nupur Bullock, CharleneD [address] [place] [phone] Pharmacist Internal Medicine 08/09/24 05/15/25 Sury Benitez [address] [place] [address] [address] [facility] [address] [place] [address] Pulmonary Disease 09/27/24 Nirali Madrid OD [address] [place] [address] Optometry 10/27/24 Li Grande MD [address] [place] [phone] Hematology and Oncology 10/27/24 Anselmo Gates MD [address] [place] [address] Orthopaedic Surgery 10/27/24 Margaret Holman [address] [facility] [address] [place] [address] Cardiology 10/27/24 Herberth Stokes MD [address] [facility] [address] [place] [address] Gastroenterology 10/27/24 Hilton Palacios MD [address] [place] [address], [address] [place] [address] Neurology 02/06/25 Aaron Pringle MD [address] [place] [address] 3rd Floor [place] [address] General Surgery 03/07/25 Pily Delaney [employer] 07/22/24 Elie BRASHER [facility] Psychology 12/29/24 documented as of this encounter
--- OUTSIDE RECORDS SUMMARY | 2025-06-14 10:13 | XMS_ITS | Clinical Summary ---
Author Organization [facility] Address [address] [facility] [address] [place] [address] Phone Care Team Providers Care Social Worker Delinquency Prevention Name Role Phone Unavailable Primary Care Provider [...] It is not the complete legal health record.[facility]
[2025-06-14] MEDS: Lidocaine HCl 1 % 20 ML VIAL 27 ML SUBCUT (11:15)
== END 2025-06-14 09:44 | disposition home or self-care (01) ==
LOC: HO.MAMMO 09:43
PROVIDERS: Absent Provider Internal Medicine Medical Oncology; PCP Family Medicine; Visit Provider Surgery
DX: N60.82 Other benign mammary dysplasias of left breast (principal); Z12.31 Encounter for screening mammogram for malignant neoplasm of breast
CPT/HCPCS: 19281; 19282; C1819; J2003

== ENCOUNTER → 2025-06-14 10:00 | Outpatient (BNV) | payer MEDICAID, SELFPAY | PROVIDERS: Absent Provider Internal Medicine Medical Oncology; PCP Family Medicine; Visit Provider Internal Medicine | DX: N60.82 Other benign mammary dysplasias of left breast (principal); R06.02 Shortness of breath | CPT/HCPCS: 19281; 19282; 71045 ==

== ENCOUNTER 2025-06-14 12:41 | Emergency (ER) | payer MEDICAID, SELFPAY ==
--- NOTE | ~2025-06-14 | XR_ITS ---
EXAMINATION: XR CHEST 1 VIEW HISTORY: sob COMPARISON: Comparison is made with the prior examination dated 12/10/2024. FINDINGS: A single AP portable view of the chest performed at 1:37 PM is submitted. The lungs are expanded and clear. There is no pleural effusion, pneumothorax, or pulmonary vascular congestion. The heart is normal in size. The bones are intact. XR/XR chest 1V IMPRESSION: No acute cardiopulmonary abnormality. Electronically signed by: Pete Price MD 06/14/2025 01:51 PM EDT
[2025-06-14 12:59] VITALS: BP 107/75; PULSE 99; O2SAT 97
--- NOTE | 2025-06-14 13:01 | ECG_ITS ---
Test Reason : CP Blood Pressure : */* mmHG Vent. Rate : 103 BPM Atrial Rate : 103 BPM P-R Int : 178 ms QRS Dur : 72 ms QT Int : 372 ms P-R-T Axes : 101 6 49 degrees QTcB Int : 487 ms Sinus tachycardia Otherwise normal ECG When compared with ECG of 10-Dec-2024 23:43, No significant change was found Referred By: Generic ED Physician Electronically Signed By: Jameson Jeffries
[2025-06-14 13:16] VITALS: BP 116/80; PULSE 106; RESP 16; TEMP 36.7; O2SAT 99; BMI 31.9
--- NOTE | 2025-06-14 13:25 | ED.GENADULT ---
HPI - General Adult General Chief complaint: General Medical Stated complaint: SOB/CHEST TIGHT,COUGH FOR DAYS FROM PER EMS Time Seen by Provider: 06/14/25 13:25 Source: patient, RN notes reviewed and old records reviewed Mode of arrival: EMS Limitations: no limitations History of Present Illness ED Provider: Corrina Badillo PA-C HPI narrative: Patient reports to the emergency department today brought in by ambulance from [facility] for shortness of breath and chest tightness that she has had over the last 2 days. Past medical history significant for heart failure with preserved ejection fraction on Lasix daily, asthma, pulmonary nodules, left-sided breast cancer, restrictive ventilatory defect, cardiomyopathy, nicotine dependence, alcohol use, uncontrolled hypertension and iron-deficiency anemia. Patient had a respiratory illness for the last 2 weeks seen by primary care provider told viral etiology advised on supportive care measures she was negative for COVID and flu. Patient did not receive any x-ray imaging. Patient states that while she does feel better no longer endorsing a cough she still has nasal congestion but even more concerning to her is her chest tightness that she has had. She tried using her rescue inhaler but it makes no difference. She reports it is worse with exertion even if she just walks a few feet. She denies any fevers chills or sweats she has no abdominal discomfort no nausea or vomiting and no diarrhea. She reports generalized weakness but otherwise does not feel mixture amount of chest pressure or pain at the moment just with exertion only. She feels it as air hunger. She cannot recall if or when she had an echo. She reports being told about her HF last year which increases her anxiety and she is not sure if these symptoms could be related to that or not. She states she did not take her Lasix this morning because she had an appointment at the hospital today for her breast and did not want to be voiding a lot so avoided taken it today but otherwise maintains that she is otherwise compliant with it. She reports never having swelling in her lower extremities and they do not feel heavy. Related Data Home Medications ?Medication ?Instructions ?Recorded ?Confirmed folic acid 1 mg tablet 1 tab PO DAILY 09/30/21 05/18/25 omeprazole 20 mg capsule,delayed 1 cap PO DAILY@0630 09/30/21 05/18/25 release thiamine HCl (vitamin B1) 100 mg 1 tab PO DAILY 09/30/21 05/18/25 tablet cholecalciferol (vitamin D3) 25 1 cap PO DAILY 06/04/22 05/18/25 mcg (1,000 unit) capsule (Vitamin D3) cetirizine 10 mg tablet 10 mg PO DAILY PRN allergies 04/10/24 05/18/25 albuterol sulfate 90 mcg/actuation 2 puff inhalation Q4H PRN 07/25/24 05/18/25 aerosol inhaler shortness of breath or wheezing allopurinol 100 mg tablet 100 mg PO BID 01/19/25 05/18/25 carbamazepine 200 mg tablet 100 mg PO 06/07/25 lorazepam 1 mg tablet 1 mg PO DAILY PRN anxiety attack 06/07/25 Previous Rx's ?Medication ?Instructions ?Recorded ACL defiance brace #1 ea 07/29/21 magnesium oxide 400 mg (241.3 mg 400 mg PO BIDPC 30 days #60 tabs 10/02/21 magnesium) tablet furosemide 40 mg tablet 40 mg PO DAILY #30 tabs 06/24/24 losartan 25 mg tablet 25 mg PO BID #60 tabs 06/24/24 fluticasone propionate 115 2 puff inhalation Q12H #12 grams 11/14/24 mcg-salmeterol 21 mcg/actuation HFA inhaler (Advair HFA) acetaminophen 500 mg tablet 500 mg PO Q6H PRN fever or pain 12/06/24 (Tylenol Extra Strength) #14 tabs metoprolol succinate 50 mg 50 mg PO DAILY #30 tabs 03/31/25 tablet,extended release 24 hr fluticasone propionate 115 2 puff inhalation Q12H #12 grams 04/11/25 mcg-salmeterol 21 mcg/actuation HFA inhaler (Advair HFA) pregabalin 25 mg capsule 75 mg (3 x 25 mg) PO BEDTIME 90 04/19/25 days #270 caps spironolactone 25 mg tablet 12.5 mg (1/2 x 25 mg) PO QAM 90 06/06/25 days #45 tabs docusate sodium 100 mg capsule 100 mg PO BEDTIME #90 caps 06/07/25 hydrocortisone 2.5 % topical cream 1 appl MT BID-QID PRN hemorrhoids 06/07/25 with perineal applicator #30 grams (Proctosol HC) methylcellulose (laxative) 500 mg 500 mg PO DAILY #90 tabs 06/07/25 tablet (Citrucel) albuterol sulfate 2.5 mg/3 mL 2.5 mg (3 mL) inhalation Q4-6H PRN 06/09/25 (0.083 %) solution for nebulization for wheezing #75 mL Allergies Allergy/AdvReac Type Severity Reaction Status Date / Time amoxicillin (AMOXICILLIN) Allergy Intermediate rash, Verified 06/14/25 13:21 rash/itching sulfamethoxazole (From Allergy Intermediate RASH Verified 06/14/25 13:21 BACTRIM) trimethoprim (From BACTRIM) Allergy Intermediate RASH Verified 06/14/25 13:21 hydrocodone (Hydrocodone) Allergy Mild ITCH Verified 06/14/25 13:21 ibuprofen (From Motrin) Allergy Mild UPSET Verified 06/14/25 13:21 STOMACH latex (Latex) Allergy Mild ITCH Verified 06/14/25 13:21 Review of Systems Review of Systems: Yes all other systems are reviewed and are negative PMFSH Past Medical History Attestation statement: The following information was validated with the patient. Source: old records reviewed and nursing notes reviewed Medical History Anemia Cardiomyopathy Gout Pulmonary nodule Arthritis Fibromyalgia Anxiety and depression Lower back pain Panic attack H/O ETOH abuse Breast cancer Hypertension Surgical History Hx of right mastectomy H/O colonoscopy History of carpal tunnel release Hx of tubal ligation History of breast lump/mass excision H/O: hysterectomy Family History Family History Mother Heart disease Alzheimers disease Father Heart disease Brother Asthma Heart disease Social History Social History Household Members: None Housing: Apartment Housing Other:: 4th floor. No elevator Are you a primary manager career to a significant other at home: No Do you presently have visiting nurse or other home services: Yes (Cardiovascular Radiologic Technologist ) Alcohol intake: current Alcohol intake frequency: holidays/special occasions only Alcohol type: hard liquor Comment: socially every 3-4 months Patient Tobacco Use Status: Current someday Tobacco user Tobacco use type: Cigarette Cigarettes Per Day: 5 Years Smoked: 38YRS e-Cigarette/Vaping Use: Never Used Second Hand Smoke Exposure: Yes Advance Directives Date on File: 02/11/22 service: No Current occupational status: disabled Gender identity: Female Physical Exam ED Vital Signs: Vital Signs - 24 hr 06/14/25 18:16 06/14/25 18:40 Temperature 98.0 F Pulse Rate 87 87 Respiratory Rate 16 16 Blood Pressure 137/82 137/82 Pulse Oximetry 98 98 Oxygen Delivery Method Room Air Room Air BMI result Body Mass Index 31.9 Const General: cooperative, healthy appearing, comfortable, no acute distress, well developed, alert, awake, Physically active and acute distress Nutritional Appearance: obese Orientation/consciousness: patient oriented x3 Limitations: no limitations HENMT Head: Yes normal to inspection Ears: hearing grossly normal bilaterally and TM abnormal dull and wth effusion (b/l) serous General nose exam: Normal external nose present, No nasal discharge present and Other nasal findings present (edematous pale nasal turbinates b/l no erythema) Face and sinus: Yes normal facial exam and Yes sinuses nontender Mouth: Normal oral and palatal mucosa present, lip normal, tongue normal, oropharynx normal and moist mucous membranes Teeth and gingiva: dentition normal Throat: Yes posterior oropharynx normal and Yes uvula midline Eyes General: appearance normal, both eyes and all related structures EOM: EOMs intact bilaterally Neck Neck: Yes normal visual inspection, Yes full ROM, Yes no lymphadenopathy, Yes trachea midline and Yes supple Carotids: normal carotid upstroke Lymphatic: no lymphadenopathy noted Chest Chest palpation & inspection: normal palpation of entire chest wall Resp Effort & Inspection: normal respiratory effort Auscultation: clear to auscultation bilaterally Cardio Jugular venous distension: no JVD Rate: tachycardic Rhythm: regular rhythm Peripheral pulses: Peripheral pulses 2+ throughout GI Inspection: Yes Abdominal panniculus present and Yes other (nontender) Palpation (GI): Soft to palpation Rectal Exam - Female: deferred General: Yes bladder normal to palpation and Yes no CVA tenderness Bimanual exam- vagina & uterus: bladder normal to palpation Back/Spine/Pelvis Back: no CVA tenderness Skin General skin exam: elasticity normal and turgor normal Neuro General: patient oriented x3 Extrem General: Yes capillary refill normal Medical Decision Making Medical Decision Making MDM Narrative: 49-year-old female with past medical history significant for CHF, asthma, seasonal allergies, anxiety, scarring of left breast s/p breast cancer, and prior VTE or right upper extremity presenting to emergency department today for SOB for the last 2 days. Upon arrival to ED patient is afebrile but mildly tachycardic at 106 saturating 92-93% on room air depending on movement. She does not appear to be breathless or any acute respiratory distress at this time. History and physical as above. Presentation at this time could be inflammation versus infection versus PE or cardiac etiology. She does not appear to be septic or ill therefore sepsis workup was not initiated. She has not appear to be fluid overloaded with no pitting edema on exam or JVD. Lungs are clear to auscultation bilaterally however we will also obtain a chest x-ray. Anemia and anxiety considered. EKG obtained upon arrival which shows sinus tachy without obvious arrhythmia or ischemia. Troponins to be trended. Initial troponin at 1428 is 9.3, will trend for delta in three hours. Other labs show baseline anemia does not meet transfusion criteria. Kidney function baseline no acute BENIGNO or metabolic dysfunction. Chest x-rays without any acute cardiopulmonary abnormality. Repeat is 12.4; Delta not > 50%. ACS can be ruled out. D dimer negative. PE can be ruled out. BNP 70- no fluid overload, acute CHF failure ruled out. Overall impression is potential anxiety as there was no life for any causes found. Patient has been advised to follow up outpatient with her PCP as well as Cardiology. She has been given reasons to seek medical attention again she demonstrated verbal understanding of the plan and agreed she was discharged home stable. Differential Diagnosis Differential Diagnoses: The differential diagnosis associated with the presentation includes See [facility] Admission/Observation Consideration of admission/observation: Escalation of care including admission/observation considered Lab Data [facility] Lab Attestation statement: I reviewed the patient's lab results. 06/14/25 14:28 06/14/25 14:28 Labs: Lab Results 06/14/25 06/14/25 06/14/25 Range/Units 13:28 14:28 17:50 WBC 9.2 (4.8-10.8) X10*3/uL RBC 3.72 L (4.20-5.50) X10*6/uL Hgb 10.8 L (12.0-16.0) g/dl Hct 32.4 L (37.0-47.0) % MCV 87.1 (80.0-98.0) fL MCH 29.0 (27.0-33.0) pg MCHC 33.3 (31.0-35.0) g/dl RDW 14.5 (11.0-16.0) % Plt Count 286 D (160-400) X10*3/uL MPV 10.8 (9.4-12.3) fL Immature Gran % (Auto) 0.3 (0.0-0.4) % Neut % (Auto) 52.1 (45-73) % Lymph % (Auto) 37.0 (20-40) % Platte % (Auto) 6.8 (2-11) % Eos % (Auto) 3.1 (0-4) % Baso % (Auto) 0.7 (0-2) % Lymph # (Auto) 3.4 (1.2-4.9) X10*3/uL [place]atte # (Auto) 0.6 (0.1-1.2) X10*3/uL Eos # (Auto) 0.3 (0.0-0.4) X10*3/uL Baso # (Auto) 0.1 (0.0-0.2) X10*3/uL Abs Immat Gran (auto) 0.03 (0.00-0.03) X10*3/uL Absolute Neuts (auto) 4.8 (2.0-8.3) x10*3/uL Absolute Nucleated RBC 0.000 (0.0-0.012) X10*3/uL Nucleated RBC % (auto) 0.0 (0.0-0.2) /100WBC Smear Tech's Comments VERIFIED D-Dimer High Sensitivty < 150 NG/ML Sodium 143 (135-145) mmol/L Potassium 4.1 (3.3-5.1) mmol/L Chloride 106 (96-108) mmol/L Carbon Dioxide 25 (22-29) mmol/L Anion Gap 16 (12-20) BUN 24 H (9-16) mg/dL Creatinine 0.83 (0.5-1.4) mg/dL Estim Creat Clear Calc 93.5 Estimated GFR > 60 Random Glucose 114 (60-115) mg/dL Calcium 9.5 (8.4-10.2) mg/dL Total Bilirubin 0.2 (0.0-1.0) mg/dL AST 23 (5-31) U/L ALT 16 (0-31) U/L Alkaline Phosphatase 124 H (39-117) U/L Troponin I High Sens 9.3 12.4 (<3.5-17.0) ng/L B-Natriuretic Peptide 70 (<100) pg/mL Total Protein 7.1 (6.5-8.0) g/dL Albumin 4.1 (3.5-5.0) g/dL Influenza Type A (PCR) NEGATIVE (Negative) Influenza Type B (PCR) NEGATIVE (Negative) RSV RNA Qual (PCR) NEGATIVE (Negative) SARS-CoV-2 RNA (RT-PCR) NEGATIVE (Negative) Independent Interpretation I performed an independent interpretation of an: EKG and Plain X-Ray Interpretation: no malignant arrhythmia or ischemia. No PTX or widened mediastinum. Radiology Impression Discussion of test interpretation with radiology: I have reviewed the radiologist's reading. Independent Historian Clinical information obtained from an independent historian. History obtained from or confirmed by: EMS External Record Review External record reviewed: Prior outpatient labs and Primary care record Tests considered The following testing was considered but not selected: Would have considered CTA chest had D dimer been elevated. Prescription Management I considered prescription management with: Pain Medication Chronic Conditions Patient?s care impacted by: Other (HF) Discharge Plan Discharge Clinical Impression: Bilateral chronic serous otitis media Chest pain Qualifiers: Chest pain type: unspecified Qualified Code(s): R07.9 - Chest pain, unspecified Patient Disposition: Home, Self-Care Instructions: Chest Pain (ED) Additional Instructions: You were seen in the emergency department today for chest pain and tightness. You had a pulmonary cardiac workup today that shows no life-threatening etiology for your symptoms including heart attack acute heart failure pulmonary embolism aortic dissection or arrhythmia. It is recommended that you follow-up with your primary care provider to discuss further management of your anxiety and to keep all follow up with your care team. It should you experience any new onset of chest pain or shortness of breath it is unrelieved with your typical asthma medicine please seek immediate medical attention or dial 911. Prescriptions: No Action (DME) ACL defiance brace See Rx Instructions .ROUTE .MEDSUPPLY Qty: 1 0RF Rx Instructions: n/a metoprolol succinate 50 mg tablet extended release 24 hr 50 mg PO DAILY Qty: 30 5RF Rx Instructions: dose increased fluticasone propion-salmeterol [Advair HFA] 115-21 mcg/actuation HFA aerosol inhaler 2 puff inhalation Q12H Qty: 12 3RF spironolactone 25 mg tablet 12.5 mg PO QAM 90 Days Qty: 45 3RF albuterol sulfate 2.5 mg /3 mL (0.083 %) solution for nebulization 2.5 mg inhalation Q4-6H PRN (Reason: for wheezing) Qty: 75 0RF thiamine HCl (vitamin B1) 100 mg tablet 1 tab PO DAILY omeprazole 20 mg capsule,delayed release(DR/EC) 1 cap PO DAILY@0630 folic acid 1 mg tablet 1 tab PO DAILY magnesium oxide 400 mg (241.3 mg magnesium) Tablet 400 mg PO BIDPC 30 Days Qty: 60 0RF cholecalciferol (vitamin D3) [Vitamin D3] 25 mcg (1,000 unit) capsule 1 cap PO DAILY furosemide 40 mg Tablet 40 mg PO DAILY Qty: 30 0RF Protocol: Hold for SBP< HOLD for SBP < : 90 losartan 25 mg Tablet 25 mg PO BID Qty: 60 0RF Protocol: Hold for SBP< HOLD for SBP < : 90 cetirizine 10 mg tablet 10 mg PO DAILY PRN (Reason: allergies) albuterol sulfate 90 mcg/actuation HFA aerosol inhaler 2 puff inhalation Q4H PRN (Reason: shortness of breath or wheezing) allopurinol 100 mg tablet 100 mg PO BID acetaminophen [Tylenol Extra Strength] 500 mg tablet 500 mg PO Q6H PRN (Reason: fever or pain) Qty: 14 0RF fluticasone propion-salmeterol [Advair HFA] 115-21 mcg/actuation HFA aerosol inhaler 2 puff inhalation Q12H Qty: 12 3RF pregabalin 25 mg capsule 75 mg PO BEDTIME 90 Days Qty: 270 1RF carbamazepine 200 mg tablet 100 mg PO lorazepam 1 mg tablet 1 mg PO DAILY PRN (Reason: anxiety attack) Citrucel 500 mg tablet 500 mg PO DAILY Qty: 90 2RF Rx Instructions: take it with full glass of water docusate sodium 100 mg capsule 100 mg PO BEDTIME Qty: 90 3RF hydrocortisone [Proctosol HC] 2.5 % cream with perineal applicator 1 appl MT BID-QID PRN (Reason: hemorrhoids) Qty: 30 2RF Referrals: [facility] [Provider Group] Shereen Latham MD [Primary Care Provider, Family Practice] Referral Note: anxiety and ED follow up Stand Alone Forms: Work/School Release Interventions: ED Discharge Assessment Last Done: 06/14/25 18:40 Discharge Date/Time: 06/14/25 18:40 Print Language: Burmese
[2025-06-14 14:32] LABS: Resp Syncy Virus RNA Qual PCR NEGATIVE (Negative); SARS COV2 PCR INHOUSE NEGATIVE (Negative)
[2025-06-14 14:48] LABS: Hematocrit 32.4 % (37.0-47.0); Hemoglobin 10.8 g/dl (12.0-16.0); Imm Gran Abs Auto 0.03 X10*3/uL (0.00-0.03); Imm Gran Pct Auto 0.3 % (0.0-0.4); Lymphocytes Absolute Auto 3.4 X10*3/uL (1.2-4.9); MANUAL DIFF FLAG SCAN; Mean Corpuscular HGB Conc 33.3 g/dl (31.0-35.0); Mean Corpuscular Hemoglobin 29.0 pg (27.0-33.0); Mean Corpuscular Volume 87.1 fL (80.0-98.0); NRBC Abs Auto 0.000 X10*3/uL (0.0-0.012); NRBC Pct Auto 0.0 /100WBC (0.0-0.2); PLT CLUMP 1; Red Blood Count 3.72 X10*6/uL (4.20-5.50); SCAN SMEAR FLAG 1
[2025-06-14 14:52] LABS: Alanine Aminotransferase 16 U/L (0-31); Albumin Level 4.1 g/dL (3.5-5.0); Alkaline Phosphatase 124 U/L (39-117); Anion Gap 16 (12-20); Aspartate Amino Transferase 23 U/L (5-31); Blood Urea Nitrogen 24 mg/dL (9-16); Calcium 9.5 mg/dL (8.4-10.2); Carbon Dioxide 25 mmol/L (22-29); Chloride 106 mmol/L (96-108); Creatinine Clr Calc Pharmacy 93.5; Estimated Glomerular Filt Rate > 60; Potassium 4.1 mmol/L (3.3-5.1); Sodium 143 mmol/L (135-145); Total Protein 7.1 g/dL (6.5-8.0)
[2025-06-14 14:56] LABS: B Type Natriuretic Peptide 70 pg/mL (<100)
[2025-06-14 14:57] LABS: D Dimer High Sensitivity < 150 NG/ML; Troponin-I High Sensitivity 9.3 ng/L (<3.5-17.0)
[2025-06-14 15:14] LABS: Platelet Count 286 X10*3/uL (160-400); White Blood Count 9.2 X10*3/uL (4.8-10.8)
[2025-06-14 18:16] VITALS: BP 137/82; PULSE 87; RESP 16; O2SAT 98
[2025-06-14 18:18] LABS: Troponin-I High Sensitivity 12.4 ng/L (<3.5-17.0)
[2025-06-14 18:40] VITALS: BP 137/82; PULSE 87; RESP 16; TEMP 36.7; O2SAT 98
== END 2025-06-14 18:40 | disposition home or self-care (01) ==
PROVIDERS: Physician Assistant Medical; Emergency Provider Emergency Medicine; PCP Family Medicine
DX: R07.89 Other chest pain (principal); H65.93 Unspecified nonsuppurative otitis media, bilateral; R06.02 Shortness of breath; R05.9 Cough, unspecified; F41.9 Anxiety disorder, unspecified; Z03.818 Encounter for observation for suspected exposure to other biological agents ruled out; Z79.899 Other long term (current) drug therapy; F17.210 Nicotine dependence, cigarettes, uncomplicated
CPT/HCPCS: 36415; 71045; 80053; 83880; 84484; 85025; 85379; 87637; 93005; 99283; 99284

== ENCOUNTER → 2025-06-14 13:01 | Outpatient (BNV) | payer MEDICAID, SELFPAY | PROVIDERS: Emergency Provider Emergency Medicine; PCP Family Medicine; Visit Provider Internal Medicine Cardiovascular Disease | DX: R00.0 Tachycardia, unspecified (principal) | CPT/HCPCS: 93010 ==

== ENCOUNTER 2025-06-20 12:56 | Outpatient (AMB) | payer MEDICAID, SELFPAY ==
--- NOTE | 2025-06-20 13:02 | A.OFFVIS_ITS ---
Vital Signs 06/20/25 13:03 Height 5 ft 7 in Weight 197 lb 1.492 oz BMI 30.9 BP 90/72 Blood Pressure Location Lt brachial Position Sitting Pulse 108 H Pulse Source Monitor Intake Visit Reasons: 6 mth f/up Tube And Rod Straightener Required: No Allergies amoxicillin (AMOXICILLIN) Allergy (Intermediate, Verified 06/20/25 13:06) rash, rash/itching sulfamethoxazole (From BACTRIM) Allergy (Intermediate, Verified 06/20/25 13:06) RASH trimethoprim (From BACTRIM) Allergy (Intermediate, Verified 06/20/25 13:06) RASH hydrocodone (Hydrocodone) Allergy (Mild, Verified 06/20/25 13:06) ITCH ibuprofen (From Motrin) Allergy (Mild, Verified 06/20/25 13:06) UPSET STOMACH latex (Latex) Allergy (Mild, Verified 06/20/25 13:06) ITCH Medication List - Last Reconciled 06/20/25 by Margaret Holman, FURNITURE TECHNICIAN-C acetaminophen (Tylenol Extra Strength) 500 mg PO Q6H PRN [ACL defiance brace n/a] albuterol sulfate 90 mcg/actuation 2 puffs inhalation Q4H PRN albuterol sulfate 2.5 mg (3 mL) inhalation Q4-6H PRN allopurinol 100 mg PO BID cetirizine 10 mg PO DAILY PRN cholecalciferol (vitamin D3) (Vitamin D3) 1 cap PO DAILY docusate sodium 100 mg PO BEDTIME fluticasone propion-salmeterol 115-21 mcg/actuation (Advair HFA) 2 puffs inhalation Q12H fluticasone propion-salmeterol 115-21 mcg/actuation (Advair HFA) 2 puffs inhalation Q12H folic acid 1 tab PO DAILY furosemide 40 mg See Protocol PO DAILY hydrocortisone 2.5% (Proctosol HC) 1 appl [place] BID-QID PRN lorazepam 1 mg PO DAILY PRN losartan 25 mg See Protocol PO BID magnesium oxide 400 mg PO BIDPC 30 days methylcellulose (laxative) (Citrucel) 500 mg PO DAILY metoprolol succinate ER 50 mg PO DAILY omeprazole 1 cap PO DAILY@0630 pregabalin 75 mg (3 x 25 mg) PO BEDTIME 90 days spironolactone 12.5 mg (1/2 x 25 mg) PO QAM 90 days thiamine HCl (vitamin B1) 1 tab PO DAILY HPI HPI 6 mth f/up: Details: Azra is a 49-year-old female with past medical history of hypertension, alcohol use, cardiomyopathy who was not seen in our office between 10/15/2021 and 08/01/2024 following [facility] admission for decompensated heart failure. She was started on appropriate med management. Her echo at that time did show normal EF. On follow-up visit she reported chest discomfort and nuclear stress test was done for further evaluation showing normal myocardial perfusion imaging. Holter showed frequent sinus tachycardia and her metoprolol dose was increased. She now presents for follow-up. Today she reports that she continues to notice elevated heart rates, tachycardia. She has been experiencing discomfort in her mid chest that is worse with palpation. She did go to the ER recently and was told her tests were normal. She is having shortness of breath with activity, unchanged from prior. No lightheadedness, presyncope, syncope, no PND or edema. She sleeps with her head of the bed elevated as she has chronic feeling of orthopnea which is longstanding. She does only light physical activity. Taking all meds as directed. [facility] Medical History Anemia Cardiomyopathy Gout Pulmonary nodule Arthritis Fibromyalgia Anxiety and depression Lower back pain Panic attack H/O ETOH abuse Breast cancer Hypertension Surgical History Hx of right mastectomy H/O colonoscopy History of carpal tunnel release Hx of tubal ligation History of breast lump/mass excision H/O: hysterectomy Family History Mother Heart disease Alzheimers disease Father Heart disease Brother Asthma Heart disease Social History Household Members: None Housing: Apartment Housing Other:: 4th floor. No elevator Are you a primary complex care nurse practitioner to a significant other at home: No Do you presently have visiting nurse or other home services: Yes (Oil Well Logging Engineer ) Alcohol intake: current Alcohol intake frequency: holidays/special occasions only Alcohol type: hard liquor Comment: socially every 3-4 months Patient Tobacco Use Status: Current someday Tobacco user Tobacco use type: Cigarette Cigarettes Per Day: 5 Years Smoked: 38YRS e-Cigarette/Vaping Use: Never Used Second Hand Smoke Exposure: Yes Advance Directives Date on File: 02/11/22 service: No Current occupational status: disabled Gender identity: Female Female Reproductive History Menstrual Age of Menarche: 7 Review of Systems Const All systems reviewed & are unremarkable except as noted in HPI and below ENT Denies dizziness Card Reports chest pain, Denies chest pain at rest, Denies chest pain with activity, Reports rapid heart rate, Denies pedal edema, Denies edema, Denies leg edema, Denies lightheadedness, Denies palpitations, Reports dyspnea, Denies dyspnea on exertion and Denies orthopnea Resp Denies cough, Reports dyspnea and Denies dyspnea on exertion GI Denies hematochezia and Denies change in stool character Musc Denies abnormal gait, Denies limited range of motion, Denies muscle cramps, Denies muscle weakness, Denies numbness, Denies radiating pain into limb, Denies stiffness and Denies tingling Neuro Denies abnormal gait, Denies dizziness, Denies numbness and Denies tingling Endo Denies palpitations Physical Exam Vital Signs: Last Vital Signs Pulse 108 H 06/20/25 13:03 BP 90/72 06/20/25 13:03 BMI result Body Mass Index 30.9 Const General: cooperative, healthy appearing, comfortable and no acute distress Orientation/consciousness: patient oriented x3 Neck Neck: Yes normal visual inspection and Yes no JVD Resp Effort & Inspection: normal respiratory effort Auscultation: clear to auscultation bilaterally, no rales, no rhonchi and no wheezes Cardio Other: discomfort to palpation lower sternal region Rate: tachycardic Rhythm: regular rhythm Heart sounds: S1 normal heart sound present, S2 normal heart sound present, no gallops, no murmurs and no rubs Neuro General: patient oriented x3 Extrem General: Yes normal to inspection, No no pedal edema and No calf tenderness Psych Appearance: grossly normal Mental Status: mental status grossly normal Speech and movement: Normal speech and movement present Office Procedures EKG Details: Today, read by me sinus tachycardia, cant exclude prior anterior infarct, rate 108, Qtc 460ms [id number], Complete Assessment & Plan Assessment & Plan (1) Chest discomfort: Code(s): R07.89 - Other chest pain Category: Medical Plan: Atypical chest discomfort at this time which is worse with palpation, possible costochondritis.. For evaluation for this symptom 06/14/2025 without acute findings. Nuclear stress test done 02/09/2025 showed exercise 5 minutes with no EKG changes and normal myocardial perfusion imaging. EKG today showing sinus tachycardia, no ischemic changes, rate 108. Discussed use of anti- inflammatories however she states they cause stomach upset. Consider ice and Tylenol. Offered reassurance that no evidence this is cardiac. (2) (HFpEF) heart failure with preserved ejection fraction: Code(s): I50.30 - Unspecified diastolic (congestive) heart failure Category: Medical Plan: Echocardiogram done 10/18/2021 had shown EF 30-35%, mild LVH. She did follow with our office again until 07/2024. Echo 06/23/2024 showed EF 55-60%, small loculated effusion over the left ventricle. Echocardiogram done 02/02/2025 showing EF 50%, small loculated effusion over the left ventricle. She does not appear fluid overloaded on exam today. Continue current meds including Lasix. Continue losartan and metoprolol XL for neurohormonal modulation. Signs and symptoms of heart failure reviewed with her. (3) Sinus tachycardia: Code(s): R00.0 - Tachycardia, unspecified Category: Medical Plan: Recent inappropriate sinus tachycardia. Labs checked and reviewed showing no significant abnormalities. She was put on metoprolol and Holter monitor 03/16/2025 showed sinus rhythm and sinus tachycardia, 99% of time heart rate greater than 100, average 116, rare PACs. At that time her metoprolol was increased to 50 mg daily. EKG done today showing sinus tachycardia, rate 108. Will further increase metoprolol to 50 mg b.i.d.. Her blood pressure is low today, will have her stop spironolactone. Recommended blood pressure checks at home. Cardiology follow-up in 4-6 weeks to re-evaluate. (4) Hypertension: Code(s): I10 - Essential (primary) hypertension Category: Medical Qualifiers: Hypertension type: unspecified Qualified Code(s): I10 - Essential (primary) hypertension Plan: Blood pressure goal less than 130/80. Blood pressure low today. Med adjustments as above. Plan I discussed with the patient the management of her tachycardia by increasing metoprolol and holding spironolactone to prevent hypotension. We talked about using cold packs and Tylenol for her chest wall pain, avoiding NSAIDs due to potential gastrointestinal side effects. I advised her on the importance of follow-up to assess her heart rate, blood pressure, and chest discomfort. Medications: Changed From metoprolol succinate ER dose increased 50 mg PO DAILY 30 tabs 5RF To metoprolol succinate ER dose increased 50 mg PO BID 60 tabs 5RF On Hold spironolactone Hold Comment: Doctor's Order 12.5 mg (1/2 x 25 mg) PO QAM 90 days 45 tabs 3RF Patient Instructions: - Increase metoprolol dosage as directed. - Hold spironolactone until further notice. - Use cold packs and Tylenol for chest pain relief. - Avoid NSAIDs due to stomach issues. - Schedule follow-up to monitor heart rate and blood pressure. Patient was informed and verbally consented to the use of an ambient scribe for clinic note documentation during this visit. Visit time spent on chart review, interview, assessment, orders, documentation. Coding Level of Care Code Est Pt Level 4 (48742) Complex EM visit Add On G2211 Diagnoses Chest discomfort R07.89 (HFpEF) heart failure with preserved ejection fraction I50.30 Sinus tachycardia R00.0 Hypertension I10 Hypertension type: unspecified CPT Codes EKG - CPT: 73940-[id number], Complete ([id number]) Time Spent (min) 32
[2025-06-20 13:03] VITALS: BP 90/72; PULSE 108; BMI 30.9
--- OUTSIDE RECORDS SUMMARY | 2025-06-20 14:05 | XMS_ITS | Encounter Summary ---
Author Organization [facility] Address [address] [place] [address] 7 [place] [address] Care Team Providers Care Shovel Operator Name Role Phone Shereen Latham MD Primary Care Provider [phone] Nupur Bullock PharmD Unavailable Sury Benitez Unavailable [phone] Julius, Nirali OD Unavailable Li Grande MD Unavailable [phone] Anselmo Gates MD Unavailable Margaret Holman Unavailable Herberth Stokes MD Unavailable [phone] Hilton Palacios MD Unavailable Aaron Pringle MD Unavailable [phone] Lori Batista Unavailable [phone] Neelima Raygoza Unavailable Encounter Details Date Type Department Care Team (Late st Contact Info) Description 05/02/2024 Orders Only [facility] [address] [place], [place] [phone] Shereen Latham MD [address] [place], [place] [phone] Gout, unspecified cause, unspecified chronicity, unspecified site [...] the past 12 months, has t he [employer], gas, oil or water [employer] threatened to shut off services in your [...] Care Team (Late st Contact Info) Description 06/22/2025 11:15 AM EDT Office Visit [facility] [address] [place] [phone] Shereen Latham MD [address] [place] [phone] 07/27/2025 10:30 AM EDT Office Visit [facility] [address] [place] [phone] Shereen Latham MD [address] [place] [address] 08/07/2025 1:30 PM EDT Office Visit [facility] [address] [place] [address] Isa De La Rosa, DDS [address] [place] [address] documented as of this encounter Visit Diagnoses Diagnosis Gout, unspecified cause, unspecified chronicity, unspecified site- Primary documented in this encounter Additional Health Concerns Assessment Noted Time PHQ-9 Depression Total Score: 23 024 1:45 PM EDT documented as of this encounter Care Teams Shovel Operator Relationship Specialty Start Date End Date Shereen Latham MD [address] [place] [address] PCP - General Family Medicine 11/02/18 Nupur Bullock, CharleneD [address] [place] [address] Pharmacist Internal Medicine 08/09/24 05/15/25 Sury Benitez [address] [place] [address] [place] [address] Pulmonary Disease 09/27/24 Nirali Madrid OD [address] [place] [address] Optometry 10/27/24 Li Grande MD [address] [place] [address] Hematology and Oncology 10/27/24 Anselmo Gates MD [address] [place] [address] Orthopaedic Surgery 10/27/24 Margaret Holman [address] [place] [address] Cardiology 10/27/24 Herberth Stokes MD [address] [facility] [address] [place] [address] Gastroenterology 10/27/24 Hilton Palacios MD [address] [facility] [place] [address] Neurology 02/06/25 Aaron Pringle MD [address] [facility] [address] [address] [place] [address] General Surgery 03/07/25 Lori Batista Registered Nurse 06/15/25 06/15/25 Neelima Raygoza 06/15/25 06/16/25 Pily Delaney Security Incident Response EngineerFish Stringer Assembler 07/22/24 Elie Vicky [facility] 12/29/24 documented as of this encounter
--- OUTSIDE RECORDS SUMMARY | 2025-06-20 14:05 | XMS_ITS | Clinical Summary ---
Author Organization [facility] Address [address] [facility] [address] [place] [phone] Phone Care Team Providers Care Monogram Maker Name Role Phone Unavailable Primary Care Provider [...] It is not the complete legal health record.[facility]
--- OUTSIDE RECORDS SUMMARY | 2025-06-20 14:05 | XMS_ITS | Clinical Summary ---
Author Organization [address] [facility] Address [address] [place] [address] Phone Care Team Providers Care Sewing Machine Maintenance Mechanic Name Role Phone Shereen Latham MD Primary Care Provider [phone] Social History Tobacco Use Types Packs/Day Years [...] 1:00 PM EDT Consult Orthopedic Surgery - [place] [id number] [phone] Antony Garrett DPM [address] [address] Health Maintenance Due Date Last Done Comments [...] topic Insurance MEDICAID - [place] Care Teams Sewing Machine Maintenance Mechanic Relationship Specialty Start Date End Date Noa, MD Shereen [address] [place] [phone] PCP - General 01/13/1996
== END 2025-06-20 14:16 | disposition home or self-care (01) ==
LOC: HO.HCS 12:57
PROVIDERS: PCP Family Medicine; Visit Provider Nurse Practitioner Family
DX: R07.89 Other chest pain (principal); I50.30 Unspecified diastolic (congestive) heart failure; R00.0 Tachycardia, unspecified; I10 Essential (primary) hypertension
CPT/HCPCS: 93010; 99214

== ENCOUNTER → 2025-06-20 12:56 | Outpatient (BNVA) | payer MEDICAID, SELFPAY | PROVIDERS: PCP Family Medicine; Visit Provider Nurse Practitioner Family | DX: R07.89 Other chest pain (principal); I50.30 Unspecified diastolic (congestive) heart failure; R00.0 Tachycardia, unspecified; I10 Essential (primary) hypertension | CPT/HCPCS: 93005; 99212 ==

== ENCOUNTER 2025-06-23 11:53 | Outpatient (AMB) | payer MEDICAID, SELFPAY ==
--- NOTE | 2025-06-23 11:55 | A.OFFVIS_ITS ---
Vital Signs 06/23/25 12:03 Height 5 ft 7 in Weight 197 lb BMI 30.9 BP 123/81 Blood Pressure Location Rt brachial Position Sitting Pulse 112 H Intake Visit Reasons: hemorrhoids unspecified Intake Note: Patient referred by Giovanna ORTEGA for evaluation and treatment of hemorrhoids. Previous treatment include Proctosol, some improvement. Patient c/o: constipation, docusate sodium, citrucel help, stopped taking as felt meds not working. Noticed blood after BM. Colonoscopy (Dr. Stokes): 07-11-2024 Physical Trainer Required: No Accompanied by: Self / Same As Patient Allergies amoxicillin (AMOXICILLIN) Allergy (Intermediate, Verified 06/23/25 12:01) rash, rash/itching sulfamethoxazole (From BACTRIM) Allergy (Intermediate, Verified 06/23/25 12:01) RASH trimethoprim (From BACTRIM) Allergy (Intermediate, Verified 06/23/25 12:01) RASH hydrocodone (Hydrocodone) Allergy (Mild, Verified 06/23/25 12:01) ITCH ibuprofen (From Motrin) Allergy (Mild, Verified 06/23/25 12:01) UPSET STOMACH latex (Latex) Allergy (Mild, Verified 06/23/25 12:01) ITCH Medication List - Last Reconciled 06/23/25 by Aaron Pringle MD acetaminophen (Tylenol Extra Strength) 500 mg PO Q6H PRN [ACL defiance brace n/a] albuterol sulfate 90 mcg/actuation 2 puffs inhalation Q4H PRN albuterol sulfate 2.5 mg (3 mL) inhalation Q4-6H PRN allopurinol 100 mg PO BID cetirizine 10 mg PO DAILY PRN cholecalciferol (vitamin D3) (Vitamin D3) 1 cap PO DAILY docusate sodium 100 mg PO BEDTIME fluticasone propion-salmeterol 115-21 mcg/actuation (Advair HFA) 2 puffs inhalation Q12H fluticasone propion-salmeterol 115-21 mcg/actuation (Advair HFA) 2 puffs inhalation Q12H folic acid 1 tab PO DAILY furosemide 40 mg See Protocol PO DAILY hydrocortisone 2.5% (Proctosol HC) 1 appl [place] BID-QID PRN lorazepam 1 mg PO DAILY PRN losartan 25 mg See Protocol PO BID magnesium oxide 400 mg PO BIDPC 30 days methylcellulose (laxative) (Citrucel) 500 mg PO DAILY metoprolol succinate ER 50 mg PO BID omeprazole 1 cap PO DAILY@0630 pregabalin 75 mg (3 x 25 mg) PO BEDTIME 90 days spironolactone 12.5 mg (1/2 x 25 mg) PO QAM 90 days Held on 06/20/25. Instructions: Doctor's Order thiamine HCl (vitamin B1) 1 tab PO DAILY HPI Comments Details: 49-year-old female patient well known to me with a history of atypical ductal hyperplasia of the left breast awaiting left breast lumpectomy x2 on 06/28/2025 now presenting with complaints of rectal pain and bleeding which seems to be worsening over the last several weeks. She reports a lot of stress in her life which seems to be contributing to the pain. She has been constipated in his taking multiple [id number] medications without significant improvement. She reports needing to strain to have a bowel movement and always has pain with a bowel movement. Bowels are generally mushy with streaks of bleeding. She denies a previous history of anal surgery. [facility] Medical History Anemia Cardiomyopathy Gout Pulmonary nodule Arthritis Fibromyalgia Anxiety and depression Lower back pain Panic attack H/O ETOH abuse Breast cancer Hypertension Surgical History Hx of right mastectomy H/O colonoscopy History of carpal tunnel release Hx of tubal ligation History of breast lump/mass excision H/O: hysterectomy Family History Mother Heart disease Alzheimers disease Father Heart disease Brother Asthma Heart disease Social History Household Members: None Housing: Apartment Housing Other:: 4th floor. No elevator Are you a primary career services representative to a significant other at home: No Do you presently have visiting nurse or other home services: Yes (Oracle Fusion Developer ) Alcohol intake: current Alcohol intake frequency: holidays/special occasions only Alcohol type: hard liquor Comment: socially every 3-4 months Patient Tobacco Use Status: Current someday Tobacco user Tobacco use type: Cigarette Cigarettes Per Day: 5 Years Smoked: 38YRS e-Cigarette/Vaping Use: Never Used Second Hand Smoke Exposure: Yes Advance Directives Date on File: 02/11/22 service: No Current occupational status: disabled Gender identity: Female Female Reproductive History Menstrual Age of Menarche: 7 Review of Systems Const All systems reviewed & are unremarkable except as noted in HPI and below Physical Exam Vital Signs: Last Vital Signs Pulse 112 H 06/23/25 12:03 BP 123/81 06/23/25 12:03 BMI result Body Mass Index 30.9 Const General: comfortable Nutritional Appearance: well nourished Orientation/consciousness: patient oriented x3 Resp Effort & Inspection: normal respiratory effort, no audible wheezes and no cough GI Inspection: Yes normal to inspection Palpation (GI): Soft to palpation, nontender and no guarding Back/Spine/Pelvis Other: Anal examination: External examination: Small resolved perirectal abscess noted in the left perianal wall, non fluctuant, nontender. No external hemorrhoid or skin tags appreciated. Digital rectal examination: Marked hypertrophy of the internal anal sphincter muscles with tenderness to palpation of the anal canal suggestive of an anal fissure. No active bleeding noted at this time. Anoscopic exam: Deferred due to pain. Neuro General: patient oriented x3 Assessment & Plan Assessment & Plan (1) Anal fissure: Code(s): K60.2 - Anal fissure, unspecified Category: Medical Plan 49-year-old female patient with a longstanding history of constipation requiring straining to have a bowel movement now with bleeding per rectum. On examination the patient is found to have hypertrophic anal sphincter muscles and tenderness in the anal canal suggestive of an anal fissure. Patient is also awaiting a left breast lumpectomy with localizer x2 for atypical ductal hyperplasia. I suggested a lateral internal sphincterotomy to manage the anal fissure symptoms following the breast surgery. After discussion of the procedure, risks and alternatives, she consents to the lateral internal sphincterotomy. Coding Level of Care Code Est Pt Level 4 (50443) Diagnoses Anal fissure K60.2
--- OUTSIDE RECORDS SUMMARY | 2025-06-23 11:56 | XMS_ITS | Clinical Summary ---
Author Organization [facility] Address [address] [place] [address] Phone Care Team Providers Care Credit Collections Analyst Name Role Phone Shereen Latham MD Primary Care Provider [phone] Social History Tobacco Use Types Packs/Day Years [...] 1:00 PM EDT Consult Orthopedic Surgery - [place] [address] [phone] Antony Garrett DPM [address] [address] Health Maintenance Due Date Last Done Comments [...] topic Insurance MEDICAID - [place] Care Teams Credit Collections Analyst Relationship Specialty Start Date End Date Noa, MD Shereen [address] [place] [phone] PCP - General 01/13/1996
--- OUTSIDE RECORDS SUMMARY | 2025-06-23 11:56 | XMS_ITS | Clinical Summary ---
Author Organization [facility] Address [address] [facility] [address] [place] [phone] Phone Care Team Providers Care Towel Distributor Name Role Phone Unavailable Primary Care Provider [...] It is not the complete legal health record.[facility]
--- OUTSIDE RECORDS SUMMARY | 2025-06-23 11:56 | XMS_ITS | Encounter Summary ---
Author Organization [employer] Address [address] [place] [address] 7 [place] [address] Care Team Providers Care Electronic Equipment Installer Name Role Phone Shereen Latham MD Primary Care Provider [phone] Nupur Bullock PharmD Unavailable Sury Benitez Unavailable [phone] Julius, Nirali OD Unavailable Li Grande MD Unavailable [phone] Anselmo Gtaes MD Unavailable Margaret Holman Unavailable Herberth Stokes MD Unavailable [phone] Hilton Palacios MD Unavailable Aaron Pringle MD Unavailable [phone] Lori Batista Unavailable [phone] Neelima Raygoza Unavailable Encounter Details Date Type Department Care Team (Late st Contact Info) Description 05/02/2024 Orders Only [facility] [address] [place], [place] [id number] Shereen Latham MD [address] [place], [place] [id number] Gout, unspecified cause, unspecified chronicity, unspecified site [...] the past 12 months, has t he [employer], gas, oil or water [employer] threatened to shut off services in your [...] Care Team (Late st Contact Info) Description 08/07/2025 1:30 PM EDT Office Visit [facility] [address] [place] [address] Rj Isa, DDS [address] [place] [address] 09/13/2025 3:15 PM EST Office Visit [facility] [address] [place] [address] Shereen Latham MD [address] [place] [address] documented as of this encounter Visit Diagnoses Diagnosis Gout, unspecified cause, unspecified chronicity, unspecified site- Primary documented in this encounter Additional Health Concerns Assessment Noted Time PHQ-9 Depression Total Score: 23 024 1:45 PM EDT documented as of this encounter Care Teams Electronic Equipment Installer Relationship Specialty Start Date End Date Shereen Latham MD [address] [place] [address] PCP - General Family Medicine 11/02/18 Nupur Bullock, CharleneD [address] [place] [address] Pharmacist Internal Medicine 08/09/24 05/15/25 Sury Benitez [address] [place] [address] Dr [address] [place] [address] Pulmonary Disease 09/27/24 Nirali Madrid OD [address] [place] [address] Optometry 10/27/24 Li Grande MD [address] [place] [id number] Hematology and Oncology 10/27/24 Anselmo Gates MD [address] [place] [address] Drive [address] [place] [address] Orthopaedic Surgery 10/27/24 Margaret Holman [address]rd [place] [address] Cardiology 10/27/24 Herberth Stokes MD [address] [facility] [address] Gastroenterology 10/27/24 Hilton Palacios MD [address] [place] [address], [address] [place] [address] Neurology 02/06/25 Aaron Pringle MD [address] [place] [address] Drive [address] [facility] [place] [address] General Surgery 03/07/25 Lori Batista Registered Nurse 06/15/25 06/15/25 Neelima Raygoza 06/15/25 06/16/25 Pily Delaney Dubbing Machine OperatorMoney Manager 07/22/[address] [facility] 12/29/24 documented as of this encounter
[2025-06-23 12:03] VITALS: BP 123/81; PULSE 112; BMI 30.9
== END 2025-06-23 12:39 | disposition home or self-care (01) ==
LOC: HO.HGS 11:54
PROVIDERS: PCP Family Medicine; Visit Provider Surgery
DX: K60.2 Anal fissure, unspecified (principal)
CPT/HCPCS: 99214

== ENCOUNTER → 2025-06-23 11:53 | Outpatient (BNVA) | payer MEDICAID, SELFPAY | PROVIDERS: PCP Family Medicine; Visit Provider Surgery | DX: K59.04 Chronic idiopathic constipation (principal); K60.2 Anal fissure, unspecified | CPT/HCPCS: 99212 ==

== ENCOUNTER 2025-06-28 07:27 | Day surgery (SDC) | payer MEDICAID, SELFPAY ==
--- OUTSIDE RECORDS SUMMARY | 2025-03-29 15:02 | XMS_ITS | Encounter Summary ---
Author Organization [employer] Address [address] [facility] 7 [place] [address] Care Team Providers Care Dev Ops Engineer Name Role Phone Shereen Latham MD Primary Care Provider [phone] Nupur Bullock PharmD Unavailable Sury Benitez Unavailable [phone] Nirali Madrid OD Unavailable Li Grande MD Unavailable [phone] Anselmo Gates MD Unavailable Margaret Holman Unavailable Herberth Stokes MD Unavailable [phone] Hilton Palacios MD Unavailable Aaron Pringle MD Unavailable Encounter Details Date Type Department Care Team (Late st Contact Info) Description 05/02/2024 Orders Only [facility] [address] [place], [place] [phone] Shereen Latham MD [address] [place], [place] [phone] Gout, unspecified cause, unspecified chronicity, unspecified site [...] Care Team (Late st Contact Info) Description 04/03/2025 11:00 AM EDT Office Visit [facility] [address] [place] [address] 04/25/2025 2:30 PM EDT Medication Management [facility] [address] [place] [address] [place] [address] Nupur Bullock PharmD [address] [place] [address] 04/26/2025 9:30 AM EDT Office Visit [facility] [address] [place] [address] Shereen Latham MD [address] [place] [address] documented as of this encounter Visit Diagnoses Diagnosis Gout, unspecified cause, unspecified chronicity, unspecified site- Primary documented in this encounter Additional Health Concerns Assessment Noted Time PHQ-9 Depression Total Score: 23 024 1:45 PM EDT documented as of this encounter Care Teams Dev Ops Engineer Relationship Specialty Start Date End Date Shereen Latham MD [address] [place] [address] PCP - General Family Medicine 11/02/18 Nupur Bullock, PharmD [address] [place] [address] Pharmacist Internal Medicine 08/09/24 Sury Benitez [address] [place] [address] Dr [facility] [address] [place] [address] Pulmonary Disease 09/27/24 Nirali Madrid OD [address] [place] [address] Optometry 10/27/24 Li Grande MD [address] [place] [address] Hematology and Oncology 10/27/24 Anselmo Gates MD [address] [place] [address] Drive [address] [place] [address] Orthopaedic Surgery 10/27/24 Margaret Holman [address] 3rd [place] [address] Cardiology 10/27/24 Herberth Stokes MD [address] 3rd [place] [address] Gastroenterology 10/27/24 Hilton Palacios MD [address] [place] [address], [address] [place] [address] Neurology 02/06/25 Aaron Pringle MD [address] [place] [address] General Surgery 03/07/25 Pily Delaney Environmental Field ProfessionalMeteorology Faculty Member 07/22/24 Elie Vicky [facility] Psychology 12/29/24 documented as of this encounter
[2025-05-18 13:24] VITALS: BMI 27.4
--- NOTE | 2025-05-18 13:32 | P.CONAN_ITS ---
HPI - Anesthesia Eval Consult details Narrative: Pending repeat biopsy 49yo F for Left Breast Lumpectomy w/LOCalizer Cardiac optimized. Follows [facility] Cardiology for HFpEF, Tachy, dyspnea. Holter, stress, ECHO ok. Reports below. Last office visit 01/2025, tachy with increase metoprolol Follows [facility] pulmo - last office visit 04/2025, sleep study pending. Pt remained tachy PMFSH Active Problems Active Problems: All Active Problems Abnormal MRI, breast (Acute) Joint pain (Acute) Arthritis of right knee (Acute) Atypical ductal hyperplasia of left breast (Acute) Abnormal mammogram of left breast (Acute) Sinus tachycardia (Acute) Non-restorative sleep (Acute) Daytime somnolence (Acute) Chest discomfort (Acute) Multiple pulmonary nodules (Acute) Chronic bronchitis (Acute) Restrictive ventilatory defect (Acute) Cardiomyopathy (Acute) Nicotine dependence, cigarettes, uncomplicated (Acute) Dyspnea (Acute) Environmental allergies (Acute) Hospital discharge follow-up (Acute) (HFpEF) heart failure with preserved ejection fraction (Acute) Effusion of knee joint right (Acute) Acute pain of right knee (Acute) Gout (Acute) Alcohol use disorder, severe, dependence (Acute) Osteoarthritis of right knee (Acute) Malignant neoplasm of breast (Acute) Anemia (Acute) Bilateral knee pain (Acute) Bilateral primary osteoarthritis of knee (Acute) Hypomagnesemia (Acute) BENIGNO (acute kidney injury) (Acute) Carpal tunnel syndrome of left wrist (Acute) Carpal tunnel syndrome of right wrist (Acute) COVID (Acute) Elevated troponin (Acute) Chest pain (Acute) Uncontrolled hypertension (Acute) Iron deficiency anemia (Acute) Complete tear of anterior cruciate ligament of left knee (Acute) Post-traumatic osteoarthritis of left knee (Acute) Fibromyalgia (Acute) Past Medical History Medical History (Updated 05/18/25 @ 13:27 by Betzy Treviño RN) Anemia Cardiomyopathy Gout Pulmonary nodule Arthritis Fibromyalgia Anxiety and depression Lower back pain Panic attack H/O ETOH abuse Breast cancer Hypertension Family History Family History Mother Heart disease Alzheimers disease Family history of problems with anesthesia: No Surgical History Surgical History (Updated 05/18/25 @ 13:22 by Betzy Treviño RN) Hx of right mastectomy H/O colonoscopy History of carpal tunnel release Hx of tubal ligation History of breast lump/mass excision H/O: hysterectomy History of Problems with Anesthesia: No Social History Social History Household Members: None Housing: Apartment Housing Other:: 4th floor. No elevator Are you a primary medication care manager to a significant other at home: No Do you presently have visiting nurse or other home services: Yes ([employer] twice daily) Alcohol intake: former Comment: 1:1 SI Patient Tobacco Use Status: Current someday Tobacco user Tobacco use type: Cigarette Cigarettes Per Day: 5 Years Smoked: 38YRS e-Cigarette/Vaping Use: Never Used Second Hand Smoke Exposure: Yes Advance Directives Date on File: 02/11/22 service: No Current occupational status: disabled Meds Allergies Allergy/AdvReac Type Severity Reaction Status Date / Time amoxicillin (AMOXICILLIN) Allergy Intermediate rash, Verified 04/19/25 13:29 rash/itching sulfamethoxazole (From Allergy Intermediate RASH Verified 04/19/25 13:29 BACTRIM) trimethoprim (From BACTRIM) Allergy Intermediate RASH Verified 04/19/25 13:29 hydrocodone (Hydrocodone) Allergy Mild ITCH Verified 04/19/25 13:29 ibuprofen (From Motrin) Allergy Mild UPSET Verified 04/19/25 13:29 STOMACH latex (Latex) Allergy Mild ITCH Verified 04/19/25 13:29 Home Medications ?Medication ?Instructions ?Recorded ?Confirmed ?Last Taken ?Type folic acid 1 mg tablet 1 tab PO DAILY 09/30/2105/0207/23/24 History omeprazole 20 mg capsule,delayed 1 cap PO DAILY@0630 1 11/30/20 05/18/25 07/23/24 History release thiamine HCl (vitamin B1) 100 mg 1 tab PO DAILY 05/18/25 07/23/24 History tablet cholecalciferol (vitamin D3) 25 1 cap PO DAILY 2 05/18/25 07/23/24 History mcg (1,000 unit) capsule (Vitamin D3) cetirizine 10 mg tablet 10 mg PO DAILY PRN allergies 04/10/24 05/18/25 07/23/24 History acetaminophen 500 mg tablet 500 mg PO Q6H PRN fever 04/19/25 Unknown History albuterol sulfate 90 mcg/actuation 2 puff inhalation Q 4H PRN 07/25/24 05/18/25 Unknown History aerosol inhaler shortness of breath or wheez ing allopurinol 100 mg tablet 100 mg PO BID 01/19/2505/18 Unknown History Exam Height,Weight and Vital Signs: Height 5 ft 7 in Weight 79.379 kg Narrative Narrative: EKG 12/2024 sinus tachycardia, can not exclude prior anterior infarct, rate 110, QTC 481 millisecond Holter 2024 1. Patient was monitored for total period of 2 days 2. Baseline was sinus rhythm but in sinus tachycardia, 99% of the time with average heart rate of 116 beats per minute 3. No significant pauses noted 4. Rare PACs noted 5. Patient marked the counter 4 times correlating with baseline sinus tachycardia ECHO 2024 Conclusions: - The left ventricular systolic function is mildly decreased. The calculated ejection fraction is 50% by biplane method. - There is a small loculated pericardial effusion overlying the left ventricle. Findings Procedure Information Contrast agent, definity, is being given per protocol without apparent complications. Left Ventricle Normal left ventricular cavity size. The left ventricular systolic function is mildly decreased. The calculated ejection fraction is 50% by biplane method. There is mild global hypokinesis. There is mild septal asymmetric hypertrophy. NM cardiolite stress test 2024 IMPRESSION: 1. Myocardial perfusion imaging study shows normal myocardial perfusion. 2. Gated LVEF is 45% during stress and 56% during rest. Correlate with echocardiogram. 3. Transient ischemic dilatation not present. Assessment and Plan Assessment Anesthesia Assessment: Chart Reviewed Final Anesthetic Review Family History of Problems with Anesthesia: No History of Problems with Anesthesia: No
--- NOTE | 2025-06-27 10:55 | P.CONAN_ITS ---
Documented by User: Rajni Valderrama NP 06/27/25 10:57 HPI - Anesthesia Eval Consult details Narrative: 49yo F for Left Breast Lumpectomy w/LOCalizer Cardiac optimized. Follow[place] [facility] for HFpEF, Tachy, dyspnea. Holter, stress, ECHO ok. Reports below. Last office visit 01/2025, tachy with increase metoprolol Follows [facility] pulmo - last office visit 04/2025, sleep study pending. Pt remained tachy PMFSH Active Problems Active Problems: All Active Problems Anal fissure (Acute) Sebaceous cyst of labia (Acute) Abnormal MRI, breast (Acute) Joint pain (Acute) Arthritis of right knee (Acute) Atypical ductal hyperplasia of left breast (Acute) Abnormal mammogram of left breast (Acute) Sinus tachycardia (Acute) Non-restorative sleep (Acute) Daytime somnolence (Acute) Chest discomfort (Acute) Multiple pulmonary nodules (Acute) Chronic bronchitis (Acute) Restrictive ventilatory defect (Acute) Cardiomyopathy (Acute) Nicotine dependence, cigarettes, uncomplicated (Acute) Dyspnea (Acute) Environmental allergies (Acute) Hospital discharge follow-up (Acute) (HFpEF) heart failure with preserved ejection fraction (Acute) Effusion of knee joint right (Acute) Acute pain of right knee (Acute) Gout (Acute) Alcohol use disorder, severe, dependence (Acute) Osteoarthritis of right knee (Acute) Malignant neoplasm of breast (Acute) Anemia (Acute) Bilateral knee pain (Acute) Bilateral primary osteoarthritis of knee (Acute) Hypomagnesemia (Acute) BENIGNO (acute kidney injury) (Acute) Carpal tunnel syndrome of left wrist (Acute) Carpal tunnel syndrome of right wrist (Acute) COVID (Acute) Elevated troponin (Acute) Chest pain (Acute) Uncontrolled hypertension (Acute) Iron deficiency anemia (Acute) Complete tear of anterior cruciate ligament of left knee (Acute) Post-traumatic osteoarthritis of left knee (Acute) Fibromyalgia (Acute) Past Medical History Medical History (Updated 06/28/25 @ 09:04 by Ester Solo RN) Asthma GERD (gastroesophageal reflux disease) CKD (chronic kidney disease) Anemia Cardiomyopathy Gout Pulmonary nodule Arthritis Fibromyalgia Anxiety and depression Lower back pain Panic attack H/O ETOH abuse Breast cancer Hypertension Family History Family History Mother Heart disease Alzheimers disease Father Heart disease Brother Asthma Heart disease Family history of problems with anesthesia: No Surgical History Surgical History (Updated 06/28/25 @ 08:21 by Ester Solo RN) Hx of knee surgery Hx of right mastectomy H/O colonoscopy History of carpal tunnel release Hx of tubal ligation History of breast lump/mass excision H/O: hysterectomy History of Problems with Anesthesia: No Social History Social History Household Members: None Housing: Apartment Housing Other:: 4th floor. 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 ) Alcohol intake: current Alcohol intake frequency: holidays/special occasions only Alcohol type: hard liquor Comment: socially every 3-4 months Patient Tobacco Use Status: Current everyday Tobacco user Tobacco use type: Cigarette Cigarettes Per Day: 5 Years Smoked: 38YRS e-Cigarette/Vaping Use: Never Used Second Hand Smoke Exposure: Yes Use of substances other than those prescribed or required for medical reasons: No Are you DNR?: No Advance Directives: No Advance Directives Information Provided: Yes Advance Directives Date on File: 02/11/22 service: No Current occupational status: disabled Gender identity: Female Meds Allergies Allergy/AdvReac Type Severity Reaction Status Date / Time amoxicillin (AMOXICILLIN) Allergy Intermediate rash, Verified 06/28/25 08:22 rash/itching sulfamethoxazole (From Allergy Intermediate RASH Verified 06/28/25 08:22 BACTRIM) trimethoprim (From BACTRIM) Allergy Intermediate RASH Verified 06/28/25 08:22 hydrocodone (Hydrocodone) Allergy Mild ITCH Verified 06/28/25 08:22 ibuprofen (From Motrin) Allergy Mild UPSET Verified 06/28/25 08:22 STOMACH latex (Latex) Allergy Mild ITCH Verified 06/28/25 08:22 Home Medications ?Medication ?Instructions ?Recorded ?Confirmed ?Last Taken ?Type folic acid 1 mg tablet 1 tab PO DAILY 09/30/21 08/05/2607/23/24 History omeprazole 20 mg capsule,delayed 1 cap PO DAILY@0630 1 11/30/20 06/28/25 06/28/25 06:30 History release thiamine HCl (vitamin B1) 100 mg 1 tab PO DAILY 06/28/25 07/23/24 History tablet cholecalciferol (vitamin D3) 25 1 cap PO DAILY 2 06/28/25 07/23/24 History mcg (1,000 unit) capsule (Vitamin D3) cetirizine 10 mg tablet 10 mg PO DAILY PRN allergies 04/10/24 06/28/25 07/23/24 History albuterol sulfate 90 mcg/actuation 2 puff inhalation Q 4H PRN 07/25/24 06/28/25 Unknown History aerosol inhaler shortness of breath or wheez ing allopurinol 100 mg tablet 100 mg PO BID 01/19/2506/28 Unknown History lorazepam 1 mg tablet 1 mg PO DAILY PRN anxiety at tack 06/07/25 06/28/25 Unknown History multivitamin 1 tab PO DAILY 06/28/2506/03 Unknown History Exam Height,Weight and Vital Signs: Height 5 ft 7 in Weight 79.379 kg Pertinent Lab Results Pertinent Lab Results: Laboratory Tests 06/14/25 14:28 WBC 9.2 Hgb 10.8 L Hct 32.4 L Plt Count 286 D Sodium 143 Potassium 4.1 Chloride 106 Carbon Dioxide 25 BUN 24 H Creatinine 0.83 Narrative Narrative: EKG 12/2024 sinus tachycardia, can not exclude prior anterior infarct, rate 110, QTC 481 millisecond Holter 2024 1. Patient was monitored for total period of 2 days 2. Baseline was sinus rhythm but in sinus tachycardia, 99% of the time with average heart rate of 116 beats per minute 3. No significant pauses noted 4. Rare PACs noted 5. Patient marked the counter 4 times correlating with baseline sinus tachycardia ECHO 2024 Conclusions: - The left ventricular systolic function is mildly decreased. The calculated ejection fraction is 50% by biplane method. - There is a small loculated pericardial effusion overlying the left ventricle. Findings Procedure Information Contrast agent, definity, is being given per protocol without apparent complications. Left Ventricle Normal left ventricular cavity size. The left ventricular systolic function is mildly decreased. The calculated ejection fraction is 50% by biplane method. There is mild global hypokinesis. There is mild septal asymmetric hypertrophy. NM cardiolite stress test 2024 IMPRESSION: 1. Myocardial perfusion imaging study shows normal myocardial perfusion. 2. Gated LVEF is 45% during stress and 56% during rest. Correlate with echocardiogram. 3. Transient ischemic dilatation not present. Assessment and Plan Assessment Anesthesia Assessment: Chart Reviewed Final Anesthetic Review Family History of Problems with Anesthesia: No History of Problems with Anesthesia: No Documented by User: Aric Martinez MD 06/28/25 09:54 [facility] Past Medical History Medical History (Updated 06/28/25 @ 09:04 by Ester Solo, RN) Asthma GERD (gastroesophageal reflux disease) CKD (chronic kidney disease) Anemia Cardiomyopathy Gout Pulmonary nodule Arthritis Fibromyalgia Anxiety and depression Lower back pain Panic attack H/O ETOH abuse Breast cancer Hypertension Functional capacity: independent ambulation Family History Family History Mother Heart disease Alzheimers disease Father Heart disease Brother Asthma Heart disease Surgical History Surgical History (Updated 06/28/25 @ 08:21 by Ester Solo RN) Hx of knee surgery Hx of right mastectomy H/O colonoscopy History of carpal tunnel release Hx of tubal ligation History of breast lump/mass excision H/O: hysterectomy Social History Social History Household Members: None Housing: Apartment Housing Other:: 4th floor. 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 ) Alcohol intake: current Alcohol intake frequency: holidays/special occasions only Alcohol type: hard liquor Comment: socially every 3-4 months Patient Tobacco Use Status: Current everyday Tobacco user Tobacco use type: Cigarette Cigarettes Per Day: 5 Years Smoked: 38YRS e-Cigarette/Vaping Use: Never Used Second Hand Smoke Exposure: Yes Use of substances other than those prescribed or required for medical reasons: No Are you DNR?: No Advance Directives: No Advance Directives Information Provided: Yes Advance Directives Date on File: 02/11/22 service: No Current occupational status: disabled Gender identity: Female Meds Allergies Allergy/AdvReac Type Severity Reaction Status Date / Time amoxicillin (AMOXICILLIN) Allergy Intermediate rash, Verified 06/28/25 08:22 rash/itching sulfamethoxazole (From Allergy Intermediate RASH Verified 06/28/25 08:22 BACTRIM) trimethoprim (From BACTRIM) Allergy Intermediate RASH Verified 06/28/25 08:22 hydrocodone (Hydrocodone) Allergy Mild ITCH Verified 06/28/25 08:22 ibuprofen (From Motrin) Allergy Mild UPSET Verified 06/28/25 08:22 STOMACH latex (Latex) Allergy Mild ITCH Verified 06/28/25 08:22 Home Medications ?Medication ?Instructions ?Recorded ?Confirmed ?Last Taken ?Type folic acid 1 mg tablet 1 tab PO DAILY 09/30/2106/0307/23/24 History omeprazole 20 mg capsule,delayed 1 cap PO DAILY@0630 1 11/30/20 06/28/25 06/28/25 06:30 History release thiamine HCl (vitamin B1) 100 mg 1 tab PO DAILY 06/28/25 07/23/24 History tablet cholecalciferol (vitamin D3) 25 1 cap PO DAILY 2 06/28/25 07/23/24 History mcg (1,000 unit) capsule (Vitamin D3) cetirizine 10 mg tablet 10 mg PO DAILY PRN allergies 04/10/24 06/28/25 07/23/24 History albuterol sulfate 90 mcg/actuation 2 puff inhalation Q 4H PRN 07/25/24 06/28/25 Unknown History aerosol inhaler shortness of breath or wheez ing allopurinol 100 mg tablet 100 mg PO BID 01/19/2506/28 Unknown History lorazepam 1 mg tablet 1 mg PO DAILY PRN anxiety at tack 06/07/25 06/28/25 Unknown History multivitamin 1 tab PO DAILY 06/28/2506/03 Unknown History Exam Exam Date and Time: 06/28/2025 Airway Mallampati Class: II TM Dist: >3cm Neck ROM: Full Heart: rrr Lungs: cta Other: none Assessment and Plan Final Anesthetic Review NPO: Yes ASA Class: III Final Preanesthetic Review: No Changes in Pt Med Stat, Meds/Allgs Chart Reviewed, Consent Obtained/Reviewed and Anes Risks/Benef Reviewed Patient Risk: Low Procedure Risk: Low Anesthetic Plan Anesthetic Plan: GA Disposition: Standard PACU
[2025-06-28] VITALS (7 sets, daily range): BP systolic 110–133; BP diastolic 66–75; PULSE 65–105; RESP 15–20; TEMP 36.3–37; O2SAT 93–99; BMI 30.8
--- NOTE | ~2025-06-28 | MM_ITS ---
Single left breast specimen radiograph demonstrates a tag with the barbell clip and a second tag with a top hat clip. Electronically signed by: Cara Rodriges DO 06/28/2025 11:07 AM EDT
[2025-06-28] MEDS: Lactated Ringers 1,000 ML 50 ML IVCONT (09:02)
--- NOTE | 2025-06-28 09:32 | MHC.SHP ---
Pre-Procedural Eval Section A - 24 Hr Update-Section A only Date of Service: 06/28/25 The patient is an INPATIENT: No Changes since office visit: Yes Patient answered all questions; No Cold of Flu in the past 2 weeks, No New Medical Problems and No Changes in Medication The patient has been examined within 24 hours of the surgical procedure. The History & Physical has been completed within 30 days and I have reviewed it.: Yes Section B - Complete if H&P > 30 days Chief Complaint: Unspecified benign mammary dysplasia of left breas Allergies: Allergies Allergy/AdvReac Type Severity Reaction Status Date / Time amoxicillin (AMOXICILLIN) Allergy Intermediate rash, Verified 06/28/25 08:22 rash/itching sulfamethoxazole (From Allergy Intermediate RASH Verified 06/28/25 08:22 BACTRIM) trimethoprim (From BACTRIM) Allergy Intermediate RASH Verified 06/28/25 08:22 hydrocodone (Hydrocodone) Allergy Mild ITCH Verified 06/28/25 08:22 ibuprofen (From Motrin) Allergy Mild UPSET Verified 06/28/25 08:22 STOMACH latex (Latex) Allergy Mild ITCH Verified 06/28/25 08:22 Plan Diagnosis/Plan: Change I have reviewed the history and physical and performed a pertinent physical examination on my patient. No changes have occurred unless specified. Patient found to have an anal fissure which is causing pain and bleeding. She is requesting a sphincterotomy at the same time as her lumpectomy. I reviewed the procedure, risks, and alternatives and she consents to both the left breast lumpectomy with localizer x2 and lateral internal sphincterotomy. Time Spent With Patient Time: Total time managing care of this patient today ____ minutes.
--- NOTE | 2025-06-28 11:54 | P.OP_ITS ---
Operative Note Operative Note Date of Service: 06/28/25 Narrative: Preoperative diagnosis: Atypical ductal hyperplasia left breast x2 lower outer quadrant, anal fissure Postoperative diagnosis: Same Procedure: Left breast lumpectomy with localizer x2, lateral internal sphincterotomy Surgeon: Aaron Pringle MD Manufacturing Plant Technician: Phani Bolanos PA-C, MAXWELL Alves Anesthesia: General LMA Indications for procedure: 49-year-old female patient with a prior history of right breast carcinoma presenting with a new lesion in the left breast biopsy proven atypical ductal hyperplasia x2. Patient presents today for wide excision of both lesions with the localizer. She also reports pain and bleeding with bowel movements in his having a difficult time passing her bowels. On examination she was noted to have a hypertrophic anal sphincter with an anal fissure. She presents also for a lateral internal sphincterotomy. Operative findings: Localizing clip and marking clip within the specimen. Thick anal sphincter Specimen: Left breast lumpectomy with 2 marking clips Estimated blood loss: 20 mL Complications: None Procedure details: Patient was brought to the OR and placed in a supine position. After administering general anesthesia the patient's left breast was prepped with ChloraPrep and draped in a sterile fashion. A surgical time-out was called the consent confirmed. Patient received preoperative antibiotics and Venodyne boots were in place. Local anesthesia was infiltrated in the lower outer quadrant of the breast over the 2 marking clips which were identified using the localizer. Elliptical incision was made in the skin as the clip appears to be just below the skin. Incision was then made with a scalpel and carried out through subcutaneous tissue. Superior and inferior skin flaps were then created using electrocautery. Sharp dissection using Metzenbaum scissors was then used to dissect the medial portion of the specimen. The lateral specimen was also dissected with electrocautery. A core of tissue around the 2 marking clips was then obtained beginning with the superior margin, followed by the medial margin, lateral margin, posterior margin and inferior margin. The specimen was passed off the table and x-rayed in the OR. This confirmed the marking clips and localizing clips within the specimen. Gross pathology confirmed biopsy cavity within the specimen. Wounds were irrigated with saline solution and suctioned dry. Wounds were checked for hemostasis. Deep breast tissue was reapproximated using interrupted 3-0 Polysorb sutures. Superficial breast tissue and dermis were then reapproximated using interrupted 3-0 Polysorb sutures. Skin was then closed using a running subcuticular 4-0 Polysorb suture. Steri-Strips, 4 x 4 gauze and Tegaderm were then applied. The patient was then placed in a lithotomy position. The patient's perianal skin was then prepped with Betadine and draped in a sterile fashion. Anoscopic exam was performed and the hypertrophic anal sphincter identified. Local anesthesia was infiltrated around the left lateral anal wall. An incision was then made with a scalpel and carried down into the subcutaneous tissue directly over the anal sphincter. A hemostat was then used to dissect the anal sphincter from the surrounding tissue. The tight muscle was then brought up through the incision and cauterized to release the sphincter using electrocautery. When this was complete examination revealed more relaxed to anal sphincter. Examination revealed no palpable masses in the rectal vault. Hemostasis was assured using electrocautery. Anal canal was then packed using a Surgicel for hemostasis followed by Xeroform and 4 x 4 gauze followed by ABD pad. The patient tolerated the procedure well. Sponge, instrument, and needle counts reported as correct. The patient was transferred to PACU in stable condition.
== END 2025-06-28 13:38 | disposition home or self-care (01) ==
PROVIDERS: PCP Family Medicine; Visit Provider Surgery
PROC: (CPT 19301; principal; 2025-06-28 09:30)
PROC: (CPT 19301; 2025-06-28 09:30)
DX: C50.912 Malignant neoplasm of unspecified site of left female breast (principal); Z17.0 Estrogen receptor positive status [ER+]; Z17.21 Progesterone receptor positive status; Z17.32 Human epidermal growth factor receptor 2 negative status; K60.2 Anal fissure, unspecified; Z85.3 Personal history of malignant neoplasm of breast; Z90.11 Acquired absence of right breast and nipple; Z92.21 Personal history of antineoplastic chemotherapy; I10 Essential (primary) hypertension; M54.50 Low back pain, unspecified; F41.8 Other specified anxiety disorders; F41.0 Panic disorder [episodic paroxysmal anxiety]; F10.11 Alcohol abuse, in remission; Z79.899 Other long term (current) drug therapy; Z79.51 Long term (current) use of inhaled steroids; Z88.1 Allergy status to other antibiotic agents; Z88.2 Allergy status to sulfonamides; Z88.5 Allergy status to narcotic agent; Z88.6 Allergy status to analgesic agent; Z91.040 Latex allergy status; Z98.890 Other specified postprocedural states; F17.210 Nicotine dependence, cigarettes, uncomplicated
CPT/HCPCS: 19301; 46080; 88307; 88341; 88342; 88360; C1889; J1100; J1171; J2003; J2250; J2405; J2704; J2795; J3010; J3374

== ENCOUNTER → 2025-06-28 07:27 | Outpatient (BNV) | payer MEDICAID, SELFPAY | PROVIDERS: PCP Family Medicine; Visit Provider Surgery | DX: N60.82 Other benign mammary dysplasias of left breast (principal); K60.30 Anal fistula, unspecified | CPT/HCPCS: 19301; 46080 ==

== ENCOUNTER 2025-07-10 14:00 | Outpatient (AMB) | payer MEDICAID, SELFPAY ==
--- NOTE | 2025-07-10 14:08 | A.OFFVIS_ITS ---
Vital Signs 3 07/10/25 14:14 Height 5 ft 7 in Weight 198 lb BMI 31.0 BP 133/85 Blood Pressure Location Lt brachial Position Sitting Pulse 89 Intake Visit Reasons: S/P Lt. breast lumpectomy w/localizer Intake Note: Patient is seen in office for post op assessment post left breast lumpectomy. Pt c/o: denies any concerns Certified Nuclear Medicine Technologist Required: No Accompanied by: Self / Same As Patient Allergies amoxicillin (AMOXICILLIN) Allergy (Intermediate, Verified 07/10/25 14:15) rash, rash/itching sulfamethoxazole (From BACTRIM) Allergy (Intermediate, Verified 07/10/25 14:15) RASH trimethoprim (From BACTRIM) Allergy (Intermediate, Verified 07/10/25 14:15) RASH hydrocodone (Hydrocodone) Allergy (Mild, Verified 07/10/25 14:15) ITCH ibuprofen (From Motrin) Allergy (Mild, Verified 07/10/25 14:15) UPSET STOMACH latex (Latex) Allergy (Mild, Verified 07/10/25 14:15) ITCH Medication List - Last Reconciled 07/10/25 by Aaron Pringle MD [ACL defiance brace n/a] albuterol sulfate 90 mcg/actuation 2 puffs inhalation Q4H PRN albuterol sulfate 2.5 mg (3 mL) inhalation Q4-6H PRN allopurinol 100 mg PO BID cetirizine 10 mg PO DAILY PRN cholecalciferol (vitamin D3) (Vitamin D3) 1 cap PO DAILY diphenhydramine-zinc acetate 1-0.1 % (Benadryl Itch Stopping) 1 appl topical BID docusate sodium 100 mg PO BEDTIME fluticasone propion-salmeterol 115-21 mcg/actuation (Advair HFA) 2 puffs inhalation Q12H folic acid 1 tab PO DAILY furosemide 40 mg See Protocol PO DAILY hydrocortisone 2.5% (Proctosol HC) 1 appl KS BID-QID PRN lorazepam 1 mg PO DAILY PRN losartan 25 mg See Protocol PO BID magnesium oxide 400 mg PO BIDPC 30 days methylcellulose (laxative) (Citrucel) 500 mg PO DAILY metoprolol succinate ER 50 mg PO BID multivitamin 1 tab PO DAILY omeprazole 1 cap PO DAILY@0630 oxycodone 5 mg PO Q6H PRN pregabalin 75 mg (3 x 25 mg) PO BEDTIME 90 days spironolactone 12.5 mg (1/2 x 25 mg) PO QAM 90 days thiamine HCl (vitamin B1) 1 tab PO DAILY HPI Comments Details: 49-year-old female patient presenting with a mammogram performed on 02/23/2025 because of pain in the left breast at the upper outer quadrant. This revealed a new focal asymmetry in the central outer breast posterior depth with questioned distortion without sonographic correlate. She has a prior history of a right breast cancer and subsequently underwent mastectomy followed by breast reconstruction. She also underwent chemotherapy but denies radiation therapy. She underwent mastopexy of the left breast. She continues to follow with Dr. Grande for her oncologic follow-up. Her family history is positive for breast cancer in several cousins. She is 4 para 3 and had her 1st child when she was 19. Her menarche was at the age of 7. She underwent a left breast stereotactic guided biopsy on 03/08/2025 and pathology revealed a minute focus of atypical ductal hyperplasia with focal gynecomastia like hyperplasia. MR guided biopsy on 05/18/2025 revealed a tiny focus of atypical ductal hyperplasia and 06/01/2025 revealed benign breast tissue. She returns today following left breast lumpectomy with localizer and lateral internal sphincterotomy for anal fissure. Subsequent pathology revealed invasive ductal carcinoma, grade 1, 6 mm in size with negative margins and ductal carcinoma in-situ, grade 1 with 5 mm negative margins, ER/KS positive, HER2 Shashank negative, Ki-67 low (pT1b Nx). She returns today for wound check and review of the pathology results. [facility] Medical History Asthma GERD (gastroesophageal reflux disease) CKD (chronic kidney disease) Anemia Cardiomyopathy Gout Pulmonary nodule Arthritis Fibromyalgia Anxiety and depression Lower back pain Panic attack H/O ETOH abuse Breast cancer Hypertension Surgical History History of lumpectomy of left breast (06/28/25) Hx of knee surgery Hx of right mastectomy H/O colonoscopy History of carpal tunnel release Hx of tubal ligation History of breast lump/mass excision H/O: hysterectomy Family History Mother Heart disease Alzheimers disease Father Heart disease Brother Asthma Heart disease Social History Household Members: None Housing: Apartment Housing Other:: 4th floor. 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 ) Alcohol intake: current Alcohol intake frequency: holidays/special occasions only Alcohol type: hard liquor Comment: socially every 3-4 months Patient Tobacco Use Status: Current everyday Tobacco user Tobacco use type: Cigarette Cigarettes Per Day: 5 Years Smoked: 38YRS e-Cigarette/Vaping Use: Never Used Second Hand Smoke Exposure: Yes Advance Directives Date on File: 02/11/22 service: No Current occupational status: disabled Gender identity: Female Female Reproductive History Menstrual Age of Menarche: 7 Physical Exam Vital Signs: Last Vital Signs Pulse 89 07/10/25 14:14 BP 133/85 07/10/25 14:14 BMI result Body Mass Index 31.0 Const General: no acute distress and anxious Chest Other: Excision site in the left breast lower outer quadrant as noted below Chest/axillae images: 2 1. Excision site in the lower outer quadrant left breast is clean, dry, and intact without hematoma or seroma. Resp Effort & Inspection: normal respiratory effort GI Inspection: Yes normal to inspection Neuro Other: Mobility Assessment: 1. 3 meter assessment time (seconds):5 2. Gait observations: Normal balance and gait Extrem General: Yes no clubbing, cyanosis or edema Assessment & Plan Assessment & Plan (1) Invasive ductal carcinoma of left breast: Code(s): C50.912 - Malignant neoplasm of unspecified site of left female breast Category: Medical Plan 49-year-old female patient with a prior history of right breast carcinoma now presenting with a new 6 mm left breast carcinoma in the lower outer quadrant. Pathology results were reviewed in detail with the patient in the recommendation for a sentinel node biopsy made. I reviewed the procedure, risks, and alternatives and she consents to a left axillary sentinel node biopsy. A copy of the pathology report was provided to the patient. Coding Level of Care Code Global (72304) Diagnoses Invasive ductal carcinoma of left breast C50.912
[2025-07-10 14:14] VITALS: BP 133/85; PULSE 89; BMI 31.0
--- OUTSIDE RECORDS SUMMARY | 2025-07-10 16:22 | XMS_ITS | Encounter Summary ---
Author Organization [employer] Address [address] [facility] 7 [place] [address] Care Team Providers Care Animal Researcher Name Role Phone Shereen Latham MD Primary Care Provider [phone] Nupur Bullock PharmD Unavailable Sury Benitez Unavailable [phone] Julius Nirali OD Unavailable Li Grande MD Unavailable [phone] Anselmo Gates MD Unavailable Margaret Holman Unavailable Herberth Stokes MD Unavailable [phone] Hilton Palacios MD Unavailable Aaron Pringle MD Unavailable [phone] Lori Batista Unavailable [phone] Neelima Raygoza Unavailable Reason for Visit * Reason Comments Med Refill Encounter Details Date Type Department Care Team (Late st Contact Info) Description 06/21/2024 Refill [facility] MED & PEDS [address] [place], [place] [phone] Shereen Latham MD [address] [place], [place] [phone] Mild intermittent asthma, unspecified whether complicated; Pain [...] Description 08/07/2025 1:30 PM EDT Office Visit [facility] ADULT DENTAL [address] [place] [address] Paz-Connor, Isa, DDS [address] [place] [address] 09/13/2025 3:15 PM EST Office Visit [facility] MEDICINE [address] [place] [address] Shereen Latham MD [address] [place] [address] documented as of this encounter Visit Diagnoses Diagnosis Mild intermittent asthma, unspecified whether complicated Pain Generalized pain documented in this encounter Additional Health Concerns Assessment Noted Time PHQ-9 Depression Total Score: 13 024 4:53 PM EDT documented as of this encounter Care Teams Animal Researcher Relationship Specialty Start Date End Date Shereen Latham MD [address] [place] [address] PCP - General Family Medicine 11/02/18 Nupur Bullock, CharleneD [address] [place] [address] Pharmacist Internal Medicine 08/09/24 05/15/25 Sury Benitez [address] [place] [address] [place] [address] [place] [address] Pulmonary Disease 09/27/24 Nirali Madrid OD [address] [place] [address] Optometry 10/27/24 Li Grande MD [address] [place] [address] Hematology and Oncology 10/27/24 Anselmo Gates MD [address] [place] [address] Orthopaedic Surgery 10/27/24 Margaret Holman [address] 3rd [place] [address] Cardiology 10/27/24 Herberth Stokes MD 11 [facility] 3rd [place] [address] Gastroenterology 10/27/24 Hilton Palacios MD [address] [facility], [address] [place] [address] Neurology 02/06/25 Aaron Pringle MD [address] [facility] [address] [place] [address] General Surgery 03/07/25 Lori Batista Registered Nurse 06/15/25 06/15/25 Neelima Raygoza 06/15/25 06/16/25 Pily Delaney Cycle LiaisonOracle Technical Developer 07/22/24 Elie Vicky [facility] 12/29/24 documented as of this encounter
--- OUTSIDE RECORDS SUMMARY | 2025-07-10 16:22 | XMS_ITS | Encounter Summary ---
Author Organization [employer] Address [address] [facility] 7 [place] [address] Care Team Providers Care Implementation Advisor Name Role Phone Shereen Latham MD Primary Care Provider [phone] Sury Benitez Unavailable [phone] Nirali Madrid OD Unavailable Li Grande MD Unavailable [phone] Anselmo Gates MD Unavailable Margaret Holman Unavailable Herberth Stokes MD Unavailable [phone] Hilton Palacios MD Unavailable Aaron Pringle MD Unavailable Reason for Visit * Reason Comments Med Refill Encounter Details Date Type Department Care Team (Late st Contact Info) Description 07/02/2025 Refill [facility] [address] [place], [place] [phone] Shereen Latham MD 230 [place], [place] [phone] Alcohol abuse Social History Tobacco Use Types Packs/Day Years Used Date Smoking Tobacco: Every Day Cigarettes Passive Smoke Exposure: Current Smokeless Tobacco: [...] Date Recorded Patient Health Questionnaire-9 Score 21 05/24/2025 Patient Health Questionnaire-9 Score 21 05/24/2025 Last PHQ-9: Questionnaire Data Not on file 0 05/24/2025 Housing Stability Answer Date Recorded What is [...] Answer Date Recorded Patient Health Questionnaire-2 Score 5 05/24/2025 Internet Access Answer Date Recorded Internet Access [...] Description 08/07/2025 1:30 PM EDT Office Visit [facility] [address] [place] [address] Isa De La Rosa DDS [address] [place] [address] 09/13/2025 3:15 PM EST Office Visit [facility] [address] [place] [address] Shereen Latham MD 230 [place] [address] documented as of this encounter Visit Diagnoses Diagnosis Alcohol abuse Nondependent alcohol abuse, unspecified drinking behavior documented in this encounter Additional Health Concerns Assessment Noted Time PHQ-9 Depression Total Score: 21 025 11:03 AM EDT documented as of this encounter Care Teams Implementation Advisor Relationship Specialty Start Date End Date Shereen Latham MD 230 [place] [address] PCP - General Family Medicine 11/02/18 Sury Benitez [address] [place] [address] [facility] [address] [place] [address] Pulmonary Disease 09/27/24 Nirali Madrid OD [address] [place] [address] Optometry 10/27/24 Li Grande MD [address] [place] [address] Hematology and Oncology 10/27/24 Anselmo Gates MD [address] [place] [address] Orthopaedic Surgery 10/27/24 Margaret Holman 11 [facility] 3rd [place] [address] Cardiology 10/27/24 Herberth Stokes MD 11 [facility] 3rd [place] [address] Gastroenterology 10/27/24 Hilton Palacios MD [address] [place] [address] DR, [address] [place] [address] Neurology 02/06/25 Aaron Pringle MD [address] [place] [address] 3rd [place] [address] General Surgery 03/07/25 Pily Delaney Engineering ClerkSound System Installer 07/22/24 Elie Vicky [facility] Psychology 12/29/24 documented as of this encounter
--- OUTSIDE RECORDS SUMMARY | 2025-07-10 16:22 | XMS_ITS | Encounter Summary ---
Author Organization [employer] Address [address] [place] [address] 7 [place] [address] Care Team Providers Care Talking Books Library Clerk Name Role Phone Shereen Latham MD Primary Care Provider [phone] Nupur Bullock PharmD Unavailable Sury Benitez Unavailable [phone] Julius, Nirali OD Unavailable Li Grande MD Unavailable [phone] Anselmo Gates MD Unavailable Margaret Holman Unavailable Herberth Stokes MD Unavailable [phone] Hilton Palacios MD Unavailable Aaron Pringle MD Unavailable [phone] Lori Batista Unavailable [phone] Neelima Raygoza Unavailable Reason for Visit * Reason Onset Date Comments Nurse Triage 05/25/2024 Encounter Details Date Type Department Care Team (Late st Contact Info) Description 05/25/2024 Telephone [facility] MEDICINE [address] [place], [place] [phone] Shereen Latham MD 230 [place], [place] [phone] Nurse Triage Social History Tobacco Use Types [...] the past 12 months, has t he [employer], oil or water [employer] threatened to shut off services in your [...] . Pt reports Pt was seen in [facility] 05/11/24 for continued leftfoot pain and Pt was seen by multineedle shirrer, Leta Lunsford MD 05/11/24 also (report is on the chart). Pt had been advised to stop BP med chlorthalidone per multineedle shirrer [facility] because that particular medication is [...] anxiety. Pt is advised to come to [facility] today , open till 8pm, to [...] Description 08/07/2025 1:30 PM EDT Office Visit [facility] ADULT DENTAL [address] [place] [address] Paz-Connor, Isa, DDS [address] [place] [address] 09/13/2025 3:15 PM EST Office Visit [facility] MEDICINE [address] [place] [address] Shereen Latham MD [address] [place] [address] documented as of this encounter Visit Diagnoses Not on filedocumented in this encounter Additional Health Concerns Assessment Noted Time PHQ-9 Depression Total Score: 22 024 9:12 AM EDT documented as of this encounter Care Teams Talking Books Library Clerk Relationship Specialty Start Date End Date Shereen Latham MD [address] [place] [address] PCP - General Family Medicine 11/02/18 Nupur Bullock PharmD [address] [place] [address] Pharmacist Internal Medicine 08/09/24 05/15/25 Sury Benitez [address] [place] [address] [place] [address] [place] [address] Pulmonary Disease 09/27/24 Nirali Madrid OD [address] [place] [address] Optometry 10/27/24 Li Grande MD [address] [place] [address] Hematology and Oncology 10/27/24 Anselmo Gates MD [address] [place] [address] Orthopaedic Surgery 10/27/24 Margaret Holman [address] 3rd [place] [address] Cardiology 10/27/24 Herberth Stokes MD [address] 3rd [place] [address] Gastroenterology 10/27/24 Hilton Palacios MD [address] [facility] [address] [place] [address] Neurology 02/06/25 Aaron Pringle MD [address] [place] [address] General Surgery 03/07/25 Lori Batista Registered Nurse 06/15/25 06/15/25 Neelima Raygoza 06/15/25 06/16/25 Pily Delaney Medical Laboratory AssistantSpeech And Language Clinician 07/22/[address] [facility] 12/29/24 documented as of this encounter
--- OUTSIDE RECORDS SUMMARY | 2025-07-10 16:22 | XMS_ITS | Encounter Summary ---
Author Organization [employer] Address [address] [place] [address] 7 [place] [address] Care Team Providers Care Mailroom Messenger Name Role Phone Shereen Latham MD Primary Care Provider [phone] Nupur Bullock PharmD Unavailable [phone] Sury Benitez Unavailable [phone] Julius, Nirali OD Unavailable Li Grande MD Unavailable [phone] Anselmo Gates MD Unavailable Margaret Holman Unavailable Herberth Stokes MD Unavailable [phone] Hilton Palacios MD Unavailable Aaron Pringle MD Unavailable [phone] Lori Batista Unavailable [phone] Neelima Raygoza Unavailable Encounter Details Date Type Department Care Team (Late st Contact Info) Description 05/02/2024 Orders Only [facility] MEDICINE [address] [place], [place] [phone] Shereen Latham MD [address] [place], [place] [phone] Gout, unspecified cause, unspecified chronicity, unspecified site [...] the past 12 months, has t he [employer], gas, oil or water [employer] threatened to shut off services in your [...] Description 08/07/2025 1:30 PM EDT Office Visit [facility] ADULT DENTAL [address] [place] [address] Rj Isa, DDS [address] [place] [address] 09/13/2025 3:15 PM EST Office Visit [facility] MEDICINE [address] [place] [address] Shereen Latham MD [address] [place] [address] documented as of this encounter Visit Diagnoses Diagnosis Gout, unspecified cause, unspecified chronicity, unspecified site- Primary documented in this encounter Additional Health Concerns Assessment Noted Time PHQ-9 Depression Total Score: 23 024 1:45 PM EDT documented as of this encounter Care Teams Mailroom Messenger Relationship Specialty Start Date End Date Shereen Latham MD [address] [place] [address] PCP - General Family Medicine 11/02/18 Nupur Bullock, CharleneD [address] [place] [address] Pharmacist Internal Medicine 08/09/24 05/15/25 Sury Benitez [address] [place] [address] [address] [place] [address] Pulmonary Disease 09/27/24 Nirali Madrid OD [address] [place] [address] Optometry 10/27/24 Li Grande MD [address] [place] [address] Hematology and Oncology 10/27/24 Anselmo Gates MD [address] [place] [address] [address] [place] [address] Orthopaedic Surgery 10/27/24 Margaret Holman [address] 3rd [place] [address] Cardiology 10/27/24 Herberth Stokes MD [address] [facility] [address] [facility] [place] [address] Gastroenterology 10/27/24 Hilton Palacios MD [address] [place] [address], [address] [place] [address] Neurology 02/06/25 Aaron Pringle MD [address] [place] [address] Drive [address] [facility] [place] [address] General Surgery 03/07/25 Lori Batista Registered Nurse 06/15/25 06/15/25 Neelima Raygoza 06/15/25 06/16/25 Pily Delaney NewswriterWheel Truer 07/22/24 Elie Vicky [facility] 12/29/24 documented as of this encounter
--- OUTSIDE RECORDS SUMMARY | 2025-07-10 16:22 | XMS_ITS | Encounter Summary ---
Author Organization [employer] Address 75 [facility] 7t [place] [address] Care Team Providers Care Poker Machine Attendant Name Role Phone Shereen Latham MD Primary Care Provider [phone] Nupur Bullock PharmD Unavailable Sury Benitez Unavailable Julius, Nirali OD Unavailable Li Grande MD Unavailable [phone] Anselmo Gates MD Unavailable Margaret Holman Unavailable Herberth Stokes MD Unavailable [phone] Hilton Palacios MD Unavailable Aaron Pringle MD Unavailable [phone] Lori Batista Unavailable [phone] Neelima Raygoza Unavailable Encounter Details Date Type Department Care Team (Late st Contact Info) Description 10/22/2023 Orders Only [facility] MEDICINE [address] [place], [place] [phone] Shereen Latham MD 230 [place], [place] [phone] Vitamin D deficiency Social History Tobacco Use [...] relaxing 3 10/22/2023 10:44 AM Michelle Holland, Being so restless that it is hard [...] Description 08/07/2025 1:30 PM EDT Office Visit [facility] ADULT DENTAL [address] [place] [address] Isa De La Rosa DDS [address] [place] [address] 09/13/2025 3:15 PM EST Office Visit [facility] MEDICINE [address] [place] [address] Shereen Latham MD [address] [place] [address] documented as of this encounter Visit Diagnoses Diagnosis Vitamin D deficiency documented in this encounter Additional Health Concerns Assessment Noted Time PHQ-9 Depression Total Score: 023 10:42 AM EST documented as of this encounter Care Teams Poker Machine Attendant Relationship Specialty Start Date End Date Shereen Latham MD [address] [place] [address] PCP - General Family Medicine 11/02/18 Nupur Bullock, CharleneD [address] [place] [address] Pharmacist Internal Medicine 08/09/24 05/15/25 Sury Benitez 10 [facility] [address] [place] [address] Pulmonary Disease 09/27/24 Nirali Madrid OD 267 [facility] [place] [address] Optometry 10/27/24 Li Grande MD 575 [place] [address] Hematology and Oncology 10/27/24 Anselmo Gates MD [address] [place] [address] Orthopaedic Surgery 10/27/24 Margaret Holman 11 [facility] 3rd [place] [address] Cardiology 10/27/24 Herberth Stokes MD 11 [facility] 3rd [place] [address] Gastroenterology 10/27/24 Hilton Palacios MD 15 [facility], [address] [place] [address] Neurology 02/06/25 Aaron Pringle MD 11 [facility] 3rd [place] [address] General Surgery 03/07/25 Lori Batista Registered Nurse 06/15/25 06/15/25 Neelima Raygoza 06/15/25 06/16/25 Pily Delaney Corporate CoordinatorExecutive Vice President Of Sales 07/22/24 Elie Vicky [facility] 12/29/24 documented as of this encounter
--- OUTSIDE RECORDS SUMMARY | 2025-07-10 16:22 | XMS_ITS | Encounter Summary ---
Author Organization [employer] Address [address] [place] [address] 7 [place] [address] Care Team Providers Care Miner Helper Name Role Phone Shereen Latham MD Primary Care Provider [phone] Nupur Bullock PharmD Unavailable Sury Benitez Unavailable Julius, Nirali OD Unavailable Li Grande MD Unavailable [phone] Anselmo Gates MD Unavailable Margaret Holman Unavailable Herberth Stokes MD Unavailable [phone] Hilton Palacios MD Unavailable Aaron Pringle MD Unavailable [phone] Lori Batista Unavailable [phone] Neelima Raygoza Unavailable Reason for Visit * Reason Onset Date Comments Nurse Triage 02/13/2025 Encounter Details Date Type Department Care Team (Late st Contact Info) Description 02/13/2025 Telephone [facility] MEDICINE 230 [place], [place] [phone] Shereen [place] MD 230 [place], [place] [phone] Nurse Triage Social History Tobacco Use Types [...] Description 08/07/2025 1:30 PM EDT Office Visit [facility] ADULT DENTAL 230 [place] [address] Isa De La Rosa, DDS 230 [place] [address] 09/13/2025 3:15 PM EST Office Visit [facility] MEDICINE 230 [place] [address] Shereen [place] MD 230 [place] [address] documented as of this encounter Visit Diagnoses Not on filedocumented in this encounter Additional Health Concerns Assessment Noted Time PHQ-9 Depression Total Score: 22 12/29/ 025 10:17 AM EST documented as of this encounter Care Teams Miner Helper Relationship Specialty Start Date End Date Shereen [place] MD 230 [place] [address] PCP - General Family Medicine 11/02/18 Nupur Bullock, PharmD [address] [place] [address] Pharmacist Internal Medicine 08/09/24 05/15/25 Sury Benitez [address] [place] [address] Dr [facility] 103 [place] [address] Pulmonary Disease 09/27/24 Nirali Madrid OD [address] [place] [address] Optometry 10/27/24 Li Grande MD [address] [place] [address] Hematology and Oncology 10/27/24 Anselmo Gates MD [address] [facility] [address] [place] [address] Orthopaedic Surgery 10/27/24 Margaret Holman 11 [facility] 3rd [place] [address] Cardiology 10/27/24 Herberth Stokes MD 11 [facility] 3rd [place] [address] Gastroenterology 10/27/24 Hilton Palacios MD [address] [place] [address] DR, [address] [place] [address] Neurology 02/06/25 Aaron Pringle MD [address] [place] [address] Drive 3rd Floor [place] [address] General Surgery 03/07/25 Lori Batista Registered Nurse 06/15/25 06/15/25 Neelima Raygoza 06/15/25 06/16/25 Pily Delaney Video Production InternGeneral Pediatrician 07/22/24 Elie Vicky [facility] Psychology 12/29/24 documented as of this encounter
--- OUTSIDE RECORDS SUMMARY | 2025-07-10 16:22 | XMS_ITS | Encounter Summary ---
Author Organization [employer] Address 75 [facility] 7t [place] [address] Care Team Providers Care Documentation Spec Name Role Phone Noa, Shereen NOLASCO Primary Care Provider [phone]- [phone] Nupur Bullock PharmD Unavailable Sury Benitez Unavailable [phone] Julius, Nirali OD Unavailable Li Grande MD Unavailable [phone] Anselmo Gates MD Unavailable Margaret Holman Unavailable Herberth Stokes MD Unavailable [phone] Hilton Palacios MD Unavailable Aaron Pringle MD Unavailable [phone] Lori Batista Unavailable [phone] Neelima Raygoza Unavailable Encounter Details Date Type Department Care Team (Late st Contact Info) Description 04/26/2024 Orders Only [facility] MEDICINE 230 [place], [place] [phone] Junie Damon MD 230 [place], [place] [phone] Social History Tobacco Use Types Packs/Day Years [...] Upcoming Encounters Date Type Department Care Team ([facility] st Contact Info) Description 08/07/2025 1:30 PM EDT Office Visit [facility] ADULT DENTAL 230 [place] [address] Paz-Connor, Isa, DDS 230 [place] [address] 09/13/2025 3:15 PM EST Office Visit [facility] MEDICINE 230 [place] [address] Shereen [place] MD 230 [place] [address] documented as of this encounter Visit Diagnoses Not on filedocumented in this encounter Additional Health Concerns Assessment Noted Time PHQ-9 Depression Total Score: 024 1:45 PM EDT documented as of this encounter Care Teams Documentation Spec Relationship Specialty Start Date End Date Shereen [place] MD 230 [place] [address] PCP - General Family Medicine 11/02/18 Nupur Bullock PharmD 230 [place] [address] Pharmacist Internal Medicine 08/09/24 05/15/25 Sury Benitez [address] [place] [address] Dr [facility] 103 [place] [address] Pulmonary Disease 09/27/24 Nirali Madrid OD [address] [place] [address] Optometry 10/27/24 Li Grande MD [address] [place] [address] Hematology and Oncology 10/27/24 Anselmo Gates MD [address] [facility] [address] [place] [address] Orthopaedic Surgery 10/27/24 Margaret Holman [address] 3rd [place] [address] Cardiology 10/27/24 Herberth Stokes MD [address] [facility] [address] 3rd [place] [address] Gastroenterology 10/27/24 Hilton Palacios MD [address] [place] [address], [address] [place] [address] Neurology 02/06/25 Aaron Pringle MD [address] [place] [address] Drive 3rd [place] [address] General Surgery 03/07/25 Lori Batista Registered Nurse 06/15/25 06/15/25 Neelima Raygoza 06/15/25 06/16/25 Pily Delaney Writer ProducerPlatform Software Engineer 07/22/24 Elie Vicky [facility] 12/29/24 documented as of this encounter
--- OUTSIDE RECORDS SUMMARY | 2025-07-10 16:22 | XMS_ITS | Encounter Summary ---
Author Organization [email or web address] Address [address] [place] [address] 7 [place] [address] Care Team Providers Care Member Of The Legislative Council Name Role Phone Shereen Latham MD Primary Care Provider [phone] Nupur Bullock PharmD Unavailable [phone] Sury Benitez Unavailable [phone] JuliusLester castellanosn OD Unavailable Li Grande MD Unavailable [phone] Anselmo Gates MD Unavailable Margaret Holman Unavailable Herberth Stokes MD Unavailable [phone] Hilton Palacios MD Unavailable [phone] Aaron Pringle MD Unavailable Lori Batista Unavailable [phone] Neelima Raygoza Unavailable Reason for Visit * Reason Onset Date Comments Medication Question 07/05/2024 Encounter Details Date Type Department Care Team (Late st Contact Info) Description 07/05/2024 Telephone [facility] MEDICINE 230 [place], [place] [phone] Shereen [place] MD 230 [place], [place] [phone] Medication Question Social History Tobacco Use Types [...] the past 12 months, has t he cartmi, gas, oil or water [employer] threatened to shut off services in your [...] is no medication interaction. Contact pt at [phone] documented in this encounter Plan of Treatment Upcoming Encounters Date Type Department Care Team (Late st Contact Info) Description 08/07/2025 1:30 PM EDT Office Visit [facility] ADULT DENTAL [address] [place] [address] Paz-Connor, Isa, DDS [address] [place] [address] 09/13/2025 3:15 PM EST Office Visit [facility] MEDICINE [address] [place] [address] Shereen Latham MD [address] [place] [address] documented as of this encounter Visit Diagnoses Diagnosis Pain Generalized pain documented in this encounter Additional Health Concerns Assessment Noted Time PHQ-9 Depression Total Score: 13 08 024 4:53 PM EDT documented as of this encounter Care Teams Member Of The Legislative Council Relationship Specialty Start Date End Date Shereen Latham MD 230 [place] [address] PCP - General Family Medicine 11/02/18 Nupur Bullock, Pushpa 230 [place] [address] Pharmacist Internal Medicine 08/09/24 05/15/25 Sury Benitez [address] [place] [address] [address] [place] [address] Pulmonary Disease 09/27/24 Nirali Madrid OD 267 [place] [address] Optometry 10/27/24 Li Grande MD [address] [place] [address] Hematology and Oncology 10/27/24 Anselmo Gates MD 10 [facility] 203 [place] [address] Orthopaedic Surgery 10/27/24 Margaret Holman 11 [facility] 3rd [place] [address] Cardiology 10/27/24 Herberth Stokes MD [address] [address] Gastroenterology 10/27/24 Hilton Palacios MD 15 [facility], [address] [place] [address] Neurology 02/06/25 Aaron Pringle MD 11 [facility] 3rd [place] [address] General Surgery 03/07/25 Lori Batista Registered Nurse 06/15/25 06/15/25 Neelima Raygoza 06/15/25 06/16/25 Pily Delaney Derrick HelperPump Installation And Servicer 07/22/24 Elie Vicky [facility] Psychology 12/29/24 documented as of this encounter
--- OUTSIDE RECORDS SUMMARY | 2025-07-10 16:23 | XMS_ITS | Encounter Summary ---
Author Organization [employer] Address 75 [facility] 7t [place] [address] Care Team Providers Care Pearler Name Role Phone Shereen Latham MD Primary Care Provider [phone] Nupur Bullock PharmD Unavailable Sury Benitez Unavailable [phone] JuliusLester castellanosn OD Unavailable Li Grande MD Unavailable [phone] Anselmo Gates MD Unavailable Margaret Homlan Unavailable Herberth Stokes MD Unavailable Hilton Palacios MD Unavailable Aaron Pringle MD Unavailable Lori Batista Unavailable [phone] Neelima Raygoza Unavailable Reason for Visit * Reason Comments Med Refill Encounter Details Date Type Department Care Team (Late st Contact Info) Description 01/17/[address] [facility] [address] [place], [place] [phone] Shereen Latham MD 230 [place], [place] [phone] Pain Social History Tobacco Use Types Packs/Day [...] Description 08/07/2025 1:30 PM EDT Office Visit [facility] ADULT DENTAL 230 [place] [address] Isa De La Rosa DDS 230 [place] [address] 09/13/2025 3:15 PM EST Office Visit [facility] MEDICINE 230 [place] [address] Shereen [place] MD 230 [place] [address] documented as of this encounter Visit Diagnoses Diagnosis Pain Generalized pain documented in this encounter Additional Health Concerns Assessment Noted Time PHQ-9 Depression Total Score: 22 025 10:17 AM EST documented as of this encounter Care Teams Pearler Relationship Specialty Start Date End Date Shereen Latham MD 230 [place] [address] PCP - General Family Medicine 11/02/18 Nupur Bullock PharmD 230 [place] [address] Pharmacist Internal Medicine 08/09/24 05/15/25 Sury Benitez [address] [place] [address] Dr [address] [place] [address] Pulmonary Disease 09/27/24 Nirali Madrid OD 267 [place] [address] Optometry 10/27/24 Li Grande MD [address] [place] [address] Hematology and Oncology 10/27/24 Anselmo Gates MD [address] [place] [address] Drive [address] [place] [address] Orthopaedic Surgery 10/27/24 Margaret Holman [address] 3rd [place] [address] Cardiology 10/27/24 Herberth Stokes MD [address] [facility] [address] 3rd [place] [address] Gastroenterology 10/27/24 Hilton Palacios MD [address] [place] [address], [address] [place] [address] Neurology 02/06/25 Aaron Pringle MD [address] [place] [address] Drive 3rd [facility] [place] [address] General Surgery 03/07/25 Lori Batisat Registered Nurse 06/15/25 06/15/25 Neelima Raygoza 06/15/25 06/16/25 Pily Delaney Fire Extinguisher InspectorStick Feeder 07/22/24 Elie Vicky [facility] 12/29/24 documented as of this encounter
--- OUTSIDE RECORDS SUMMARY | 2025-07-10 16:23 | XMS_ITS | Encounter Summary ---
Author Organization [employer] Address 75 [facility] 7t [place] [address] Care Team Providers Care Project Internship Name Role Phone Shereen Latham MD Primary Care Provider [phone] Nupur Bullock PharmD Unavailable Sury Benitez Unavailable [phone] Julius, Nirali OD Unavailable Li Grande MD Unavailable [phone] Anselmo Gates MD Unavailable Margaret Holman Unavailable Herberth Stokes MD Unavailable [phone] Hilton Palacios MD Unavailable Aaron Pringle MD Unavailable [phone] Lori Batista Unavailable [phone] Neelima Raygoza Unavailable Encounter Details Date Type Department Care Team (Late st Contact Info) Description 10/11/2024 Telephone [facility] MEDICINE 230 [place], [place] [phone] Shereen L[place] MD 230 [place], [place] [phone] Social History Tobacco Use Types Packs/Day Years [...] Office Visit [facility] ADULT DENTAL 230 [place] [address] Paz-Connor, Isa, DDS 230 [place] [address] 09/13/2025 3:15 PM EST Office Visit [facility] MEDICINE 230 [place] [address] Shereen [place] MD 230 [place] [address] documented as of this encounter Visit Diagnoses Not on filedocumented in this encounter Additional Health Concerns Assessment Noted Time PHQ-9 Depression Total Score: 13 024 4:53 PM EDT documented as of this encounter Care Teams Project Internship Relationship Specialty Start Date End Date Shereen [place] MD 230 [place] [address] PCP - General Family Medicine 11/02/18 Nupur Bullock, CharleneD 230 [place] [address] Pharmacist Internal Medicine 08/09/24 05/15/25 Sury Benitez [address] [place] [address] Dr [facility] 103 [place] [address] Pulmonary Disease 09/27/24 Nirali Madrid OD [address] [place] [address] Optometry 10/27/24 Li Grande MD 575 [place] [address] Hematology and Oncology 10/27/24 Anselmo Gates MD 10 [facility] [address] [place] [address] Orthopaedic Surgery 10/27/24 Margaret Holman [address] 3rd [place] [address] Cardiology 10/27/24 Herberth Stokes MD [address] [facility] [address] [facility] [place] [address] Gastroenterology 10/27/24 Hilton Palacios MD [address] [place] [address], [address] [place] [address] Neurology 02/06/25 Aaron Pringle MD [address] [place] [address] 3rd [facility] [place] [address] General Surgery 03/07/25 Lori Batista Registered Nurse 06/15/25 06/15/25 Neelima Raygoza 06/15/25 06/16/25 Pily Delaney Business Systems LeadTobacco Warehouse Manager 07/22/24 Elie Vicky [facility] [place] Psychology 12/29/24 documented as of this encounter
--- OUTSIDE RECORDS SUMMARY | 2025-07-10 16:23 | XMS_ITS | Encounter Summary ---
Author Organization [employer] Address [address] [place] [address] 7t [place] [address] Care Team Providers Care Importer Or Exporter Name Role Phone Shereen [place] MD Primary Care Provider [phone] Nupur Bullock PharmD Unavailable Sury Benitez Unavailable [phone] JuliusLester castellanosn OD Unavailable Li Grande MD Unavailable [phone] Anselmo Gates MD Unavailable Margaret Holman Unavailable Herberth Stokes MD Unavailable [phone] Hilton Palacios MD Unavailable Aaron Pringle MD Unavailable [phone] Lori Batista Unavailable [phone] Neelima Raygoza Unavailable Reason for Visit * Reason Onset Date Comments Medication Question 08/25/2024 Encounter Details Date Type Department Care Team ([facility] st Contact Info) Description 08/25/2024 Telephone [facility] MEDICINE 230 [place], [place] [phone] Shereen [place] MD 230 [place], [place] [phone] Medication Question Social History Tobacco Use Types [...] the past 12 months, has t he [employer], gas, oil or water [employer] threatened to shut off services in your [...] any questions you can contact pt at [phone]. documented in this encounter Plan of Treatment Upcoming Encounters Date Type Department Care Team (Late st Contact Info) Description 08/07/2025 1:30 PM EDT Office Visit [facility] ADULT DENTAL [address] [place] [address] Brandi-Isa Connor, DDS 230 [place] [address] 09/13/2025 3:15 PM EST Office Visit [facility] MEDICINE [address] [place] [address] Shereen [place] MD [address] [place] [address] documented as of this encounter Visit Diagnoses Not on filedocumented in this encounter Additional Health Concerns Assessment Noted Time PHQ-9 Depression Total Score: 13 024 4:53 PM EDT documented as of this encounter Care Teams Importer Or Exporter Relationship Specialty Start Date End Date Shereen Latahm MD [address] [place] [address] PCP - General Family Medicine 11/02/18 Nupur Bullock, CharleneD [address] [place] [address] Pharmacist Internal Medicine 08/09/24 05/15/25 Sury Benitez [address] [place] [address] [place] [address] Pulmonary Disease 09/27/24 Nirali Madrid OD [address] [place] [address] Optometry 10/27/24 Li Grande MD 575 [place] [address] Hematology and Oncology 10/27/24 Anselmo Gates MD [address] [place] [address] Orthopaedic Surgery 10/27/24 Margaret Holman [address] 3rd [place] [address] Cardiology 10/27/24 Herberth Stokes MD 11 [facility] 3rd [place] [address] Gastroenterology 10/27/24 Hilton Palacios MD 15 [facility], [address] [place] [address] Neurology 02/06/25 Aaron Pringle MD 11 [facility] 3rd [place] [address] General Surgery 03/07/25 Lori Batista Registered Nurse 06/15/25 06/15/25 Neelima Raygoza 06/15/25 06/16/25 Pily Delaney Gynecological AssistantWastewater Plant Operator 07/22/24 Elie Vicky [facility] 12/29/24 documented as of this encounter
--- OUTSIDE RECORDS SUMMARY | 2025-07-10 16:23 | XMS_ITS | Encounter Summary ---
Author Organization [employer] Address [address] [place] [address] 7 [place] [address] Care Team Providers Care Blender Snuff Name Role Phone Shereen [place] MD Primary Care Provider [phone] Nupur Bullock PharmD Unavailable Sury Benitez Unavailable [phone] Julius, Nirali OD Unavailable Li Grande MD Unavailable [phone] Anselmo Gates MD Unavailable Margaret Holman Unavailable Herberth Stokes MD Unavailable [phone] Hilton Palacios MD Unavailable [phone] Aaron Pringle MD Unavailable [phone] Lori Batista Unavailable [phone] Neelima Raygoza Unavailable Reason for Visit * Reason Onset Date Comments Nurse Triage 01/25/2024 Referral 01/25/2024 Encounter Details Date Type Department Care Team (Late st Contact Info) Description 01/25/2024 Telephone [facility] MEDICINE 230 [place], [place] [phone] Shereen [place] MD 230 [place], [place] [phone] Nurse Triage; Referral Social History Tobacco Use [...] Trouble relaxing 2 01/28/2024 1:56 PM EDT R Ruma bae Being so restless that it is hard to sit still 3 01/28/2024 1:56 PM EDT Marga Lawrencesa Becoming easily annoyed or irritable 3 01/01 [...] the days 01/28/2024 1:55 PM EDT Ruma Larwence Trouble falling or staying asleep, or sleeping [...] Nearly every day 01/28/2024 1:55 PM EDT Marga Lawrencesa Moving or speaking so slowly that other [...] vary. Pt wants to be referred to [address] [address]. [facility] will send to team to review [...] Description 08/07/2025 1:30 PM EDT Office Visit [facility] ADULT DENTAL [address] [place] [address] Rj Isa, DDS 230 [place] [address] 09/13/2025 3:15 PM EST Office Visit [facility] MEDICINE 230 [place] [address] Shereen L[place] MD [address] [place] [address] documented as of this encounter Visit Diagnoses Not on filedocumented in this encounter Additional Health Concerns Assessment Noted Time PHQ-9 Depression Total Score: 21 023 10:42 AM EST documented as of this encounter Care Teams Blender Snuff Relationship Specialty Start Date End Date Shereen L[place] MD 230 [place] [address] PCP - General Family Medicine 11/02/18 Nupur Bullock PharmD [address] [place] [address] Pharmacist Internal Medicine 08/09/24 05/15/25 Sury Benitez [address] [place] [address] Pulmonary Disease 09/27/24 Nirali Madrid OD [address] [place] [address] Optometry 10/27/24 Li Grande MD [address] [place] [address] Hematology and Oncology 10/27/24 Anselmo Gates MD [address] [place] [address] Orthopaedic Surgery 10/27/24 Margaret Holman [address] 3rd Floor [place] [address] Cardiology 10/27/24 Herberth Stokes MD [address] 3rd [place] [address] Gastroenterology 10/27/24 Hilton Palacios MD 15 [facility] [address] [place] [address] Neurology 02/06/25 Aaron Pringle MD [address] 3rd [place] [address] General Surgery 03/07/25 Lori Batista Registered Nurse 06/15/25 06/15/25 Neelima Raygoza 06/15/25 06/16/25 Pily Delaney Explosive Operator FuseButtonhole Maker 07/22/24 Elie Vicky [facility] 12/29/24 documented as of this encounter
--- OUTSIDE RECORDS SUMMARY | 2025-07-10 16:23 | XMS_ITS | Encounter Summary ---
Author Organization [employer] Address [address] [facility] [address]t [place] [address] Care Team Providers Care Local Delivery Driver Name Role Phone [place], Shereen NOLASCO Primary Care Provider [phone] Sury Benitez Unavailable [phone] Nirali Madrid OD Unavailable [phone] Li Grande MD Unavailable Anselmo Gates MD Unavailable Margaret Holman Unavailable Herberth Stokes MD Unavailable [phone] Hilton Palacios MD Unavailable Aaron Pringle MD Unavailable [phone] Encounter Details Date Type Department Care Team (Late st Contact Info) Description 06/28/2025 Orders Only [facility] External Provider, [facility] Bilateral malignant neoplasm of breast in female, unspecified estrogen receptor status, unspecified site of breast (CMS/HCC) (Primary Dx); Abnormal mammogram Social History Tobacco Use Types Packs/Day Years [...] 1:30 PM EDT Office Visit [facility]ULT D[facility]AL [address] [place] [address] Isa De La Rosa DDS [address] [place] [address] 09/13/2025 3:15 PM EST Office Visit [facility] MEDICINE [address] [place], [place] [phone] Shereen Latham MD [address] [place] [address] documented as of this encounter Procedures Procedure Name Priority Date/Time Associated Diagnosis Comments GROSS AND MICROSCOPIC LEVEL 5 Routine 06/28/2025 10:55 AM EDT BI MM SURGICAL SPECIMEN Routine 06/28/2025 10:13 AM EDT documented in this encounter Results * Gross and Microscopic Level 5 (06/28/2025 10:55 AM EDT) 06/28/2025 10:5 5 AM EDT 06/28/2025 11:08 AM EDT [facility] LABS - 07/05/2025 2:23 PM EDT ----- ------- Name: Azra Cast Age/Sex: 49/F : 1975 Unit#: [id number] Attend Dr: Aaron Pringle MD Re06/28/25 Status: [facility] Location: .[facility] Disch: ----- ------- SPEC : [id number] RECD: 06/28/25 STATUS: CRAIG ANDERSEN NUM: [id number] MAYA: 06/28/25-[address] [facility] [address]: Aaron Pringle MD ENTERED: 06/28/25-1110 SP TYPE: Surgical OTHR DR: Shereen Latham MD ORDERED: Gross Micro L5, ER, DC, IOC, IHC, Add. immunos, IHC ER/DC/Her2N/4, Ki-67, p63, SMM, [id number] Diagnosis Breast, left, lumpectomy: - Invasive ductal carcinoma, MSBR grade 1; 6 mm in size; margins negative. - Ductal carcinoma in-situ, nuclear grade 1; margins negative (5 mm to posterior). - Usual ductal hyperplasia; biopsy site changes and calcifications associated with both benign and malignant epithelium. - Skin within normal limits. - pT1b NX (AJCC Stage 8th ed.) Estrogen receptor: Positive (100% of tumor cells; strong intensity) Progesterone receptor: Positive (100% of tumor cells; strong intensity) HER2: Negative (0; rare faint staining present) Proliferation index: Low (5-10% with Ki-67 immunostaining) Synoptic Data - Invasive Breast Cancer Procedure: Lumpectomy Laterality: Left Tumor size: 6 mm Tumor focality: Unifocal Extent of tumor Skin: Negative Nipple: Nipple not present Skeletal muscle: Muscle not present DCIS: Present Nuclear grade: 1 Extent/EIC positive/negative: Negative LCIS: Not identified Type of invasive carcinoma: Ductal Histologic grade (MSBR): 1 Tubule formation score: 1 Nuclear pleomorphism score: 1 Mitotic rate score: 1 LVI: Not identified Margin, inv tumor: Negative Closest margin: 0.5 cm from posterior Margin, DCIS: Negative Closest margin: 0.5 cm from posterior Lymph nodes Number examined: 0 [place] nodes: 0 Axillary nodes: 0 CONTINUED ON NEXT PAGE ----- ------- Name: Azra Cast Age/Sex: 49/F : 1975 Unit#: [id number] Attend Dr: Aaron Pringle MD Re06/28/25 Status: [facility] Location: [facility] Disch: ----- ------- SPEC : [id number] RECD: 06/28/25-110 STATUS: KVNGMelquiades ANDERSEN NUM: [id number] MAYA: 06/28/25-[address]: Aaron Pringle MD ENTERED: 06/28/25-1110 SP TYPE: Surgical OTHR DR: Shereen Latham MD ORDERED: Gross Micro L5, ER, DC, IOC, IHC, Add. immunos, IHC ER/DC/Her2N/4, Ki-67, p63, SMM, [id number] Diagnosis (Continued) Number involved: N/A With macrometastases: N/A With micrometastases: N/A With isolated tumor cells: N/A Extranodal extension: N/A Size of largest met. deposit: N/A Treatment effect Breast: Not identified Lymph nodes: Not identified TNM: pT1b NX Ancillary studies: ER positive, DC positive, HER2 negative (0), low proliferation Clinical History Atypical ductal hyperplasia of left breast Microscopic Description Sections have an invasive carcinoma comprised of small ill-formed tubules with background stromal desmoplastic changes and calcifications. The tumor cells are small, have scant to moderate amphophilic cytoplasm and oval nuclei with open chromatin. No myoepithelial cells are seen with p63 and smooth muscle myosin immunostains. Focal in-situ carcinoma with similar nuclear features is also present. The background has extensive usual ductal hyperplasia, fibrocystic changes and calcifications as well. Multiple biopsy sites are present. Material Received Left breast lumpectomy Gross Description Received fresh in a single container labeled, left breast lumpectomy, long lateral, short superior, loop deep is a portion of breast tissue with sutures and attached skin measuring 9.0 x 5.5 x 3.0 cm; the skin ellipse measures 5.0 x 1.0 cm and is unremarkable appearing. Inked in six colors: deep red, superior blue, lateral yellow, medial orange, anterior black and inferior green. Sectioning reveals an ill-defined area of white, focally firm fibrous tissue, grossly located 0.5 cm from the posterior margin, 0.8 cm from the inferior margin and 1.0 cm or greater from the remaining margins. Associated with the palpable abnormality is additional white fibrous tissue, extending to involve the posterior margin. One of the clips is identified within the area of palpable induration, consisting of a cylindrical clear clip, grossly located 1.5 cm from the nearest posterior margin. Remainder of the CONTINUED ON NEXT PAGE ----- ------- Name: Azra Cast Age/Sex: 49/F [facility] 1975 [id number]#: [id number] Attend Dr: Aaron Pringle MD Re06/28/25 Status: [facility] Location: [facility] Disch: ----- ------- SPEC : [id number] RECD: 06/28/25-1107 STATUS: CRAIG ANDERSEN NUM: [id number] MAYA: 06/28/25-[address] [facility] [address]: Aaron Pringle MD ENTERED: 06/28/25-1110 SP TYPE: Surgical OTHR DR: Shereen Latham MD ORDERED: Gross Micro L5, ER, DC, IOC, IHC, Add. immunos, IHC ER/DC/Her2N/4, Ki-67, p63, SMM, [id number] Gross Description (Continued) fatty parenchyma is otherwise unremarkable without additional discrete abnormality. Desolderer sections to include entire area of ill-defined mass and fibrous tissue are submitted for permanent processing. Section code. A1. Area of clip, to include posterior margin A2. Ill-defined mass adjacent to clip, to include inferior margin A3. Ill-defined mass, to include posterior and focal inferior margins A4. Superior margin A5. Medial margin A6. Anterior margin and skin A7. Lateral margin A8. Posterior and inferior margins A9. Superior margin A10. Inferior margin A11-12. Ill-defined mass, no margins A13. Inferior margin A14. Posterior margin A15. Medial margin A16. Superior margin A17. Superior and posterior margins A18. Posterior margin A19-20. Inferior margin. (DTL) Formalin-fixed paraffin-embedded tissue. Time tissue removed from patient: 1055 Time tissue placed in fixative: 1125 Duration of fixation: between 6 and 24 hrs. Estrogen and Progesterone receptor immunohistochemistry performed in accordance with ASCO/CAP recommendations (2010). Estrogen receptor: Clone SP1; Dako Envision+ Dual Link System-HRP. Progesterone receptor: Clone [id number]; MetricStream Mach 4 detection system. Her-2/perez immunohistochemistry performed in accordance with ASCO/CAP recommendations (2007) and update (2013). Hercep Test Detection system: Polymer type Scoring criteria: For ER/DC and Her-2/perez: All internal (if present) and external controls react appropriately. CONTINUED ON NEXT PAGE ----- ------- Name: Azra Cast Age/Sex: 49/F : 1975 Unit#: [id number] Attend Dr: Aaron Pringle MD Re06/28/25 Status: [facility] Location: [facility] Disch: ----- ------- SPEC : [id number] RECD: 06/28/25-1107 STATUS: CRAIG ANDERSEN NUM: [id number] MAYA: 06/28/25-[address] [facility] DR: Aaron Pringle MD ENTERED: 06/28/25 SP TYPE: Surgical OTHR DR: Shereen Latham MD ORDERED: Gross Micro L5, ER, DC, IOC, IHC, Add. immunos, IHC ER/DC/Her2N/4, Ki-67, p63, SMM, [id number] Gross Description (Continued) ER and DC immunostains are scored as Positive (> 10% of tumor cell nuclei), Low Positive (1- 10% of tumor cell nuclei) or Negative (<1% of tumor cell nuclei) with associated staining intensity designation. The Negative category is further delineated by the presence or absence of internal positive control tissue. The HER2 immunostain assay is resulted as Positive (3+) with intense, complete membranous staining of more than 10% of the carcinoma or Negative (0) corresponding to negative or incomplete/weak membranous staining in <10% of cells. HER2 Low (1+) corresponding to incomplete/weak membranous staining in >10% of cells. The Equivocal (2+) designation reflects weak or non-uniform circumferential staining or dark (moderate) circumferential staining in less than 10% of the tumor cells. The Equivocal (2+) category includes a minor subset of patients that will show HER2 gene amplification, and therefore confirmatory HER2 FISH testing will be performed on all Equivocal cases. The Ki-67 immunostain is scored, according to cut-offs established in the monarchE trial, as High (> or = 20% of tumor cell nuclei) or Low (< 20% of tumor cell nuclei). Tumor cell nuclear staining intensity of 1+ or greater is positive. Vernon VILLEDA, Margot ME, et al. Human Epidermal Growth Factor Receptor 2 Testing in Breast Cancer: ASCO/CAP Clinical Practice Guideline Focus Update. Arch of Pathol Lab Med, 142, 2018: 6480-6625. Marce KH, Margot ME, et al. Estrogen and Progesterone Receptor Testing in Breast Cancer: ASCO/CAP Guideline Update. Arch of Pathol Lab Med, 144 2020: 545-563. Thanh N, Cristel P, et al. Adjuvant abemaciclib combined with endocrine therapy for high- risk early breast cancer: updated efficacy and Ki-67 analysis from the [facility] study. Jennie Oncol. 2020;32(12):6183-3716. This case was reviewed intradepartmentally; results were communicated to Dr. Pringle on 07/05/2025. Special studies ordered and performed: Immunostains for ER, DC, HER2, Ki 67, p63 and smooth muscle myosin IHC S/NG Disclaimer NOTE: Unless otherwise stated, all tissue is formalin-fixed and paraffin-embedded. Some or all of the immunohistochemical tests reported herein may have been developed and their performance characteristics determined by [facility]. They have not been cleared or approved by the U.S. Food and Drug Administration (FDA). However, the FDA has determined that such clearance or approval is not necessary. This laboratory is certified under the Clinical Laboratory Improvement Amendments of 1988 (CLIA) as qualified to perform high complexity clinical laboratory testing. CONTINUED ON NEXT PAGE ----- ------- Name: Azra Cast Age/Sex: 49/F : 1975 Unit#: [id number] Attend Dr: Aaron Pringle MD Re06/28/25 Status: [facility] Location: [facility] Disch: ----- ------- SPEC : [id number] RECD: 06/28/25 STATUS: CRAIG ANDERSEN NUM: [id number] MAYA: 06/28/[address] [facility] [address]: Aaron Pringle MD ENTERED: 06/28/25-1110 SP TYPE: Surgical OTHR DR: Shereen Latham MD ORDERED: Gross Micro L5, ER, DC, IOC, IHC, Add. immunos, IHC ER/DC/Her2N/4, Ki-67, p63, SMM, [id number] Copies To: Shereen Latham MD [address] [address] Aaron Pringle MD [facility] General Surgeons [address] [place] [address] ----- ------- Signed (signature on file) Beck Whatley MD 07/05/25 1423 ----- ------- END OF REPORT us Generic External Data Provider LAB BLOOD ORDERAB LES Final Result [facility] [address] [place], [place] [phone] * BI MM SURGICAL SPECIMEN (06/28/2025 10:13 AM EDT) Anatomical Region Laterality Modality Breast Bilateral Mammography 06/28/2025 10:1 3 AM EDT Narrative 06/28/2025 11:09 AM EDT [address] [address] [id number] Mammography Report Signed Patient: Azra Cast MR#: [id number] : 1975 Acct:[id number] Age/Sex: 49 / F ADM Date: 06/28/25 Loc: [facility] Attending Dr: Aaron Pringle MD Ordering Physician: Aaron Pringle MD Results: Date of Service: 06/28/25 Follow Up: Procedure(s): MM surgical specimen Accession Number(s): [id number] cc: Shereen Latham MD; Aaron Pringle MD Single left breast specimen radiograph demonstrates a tag with the barbell clip and a second tag with a top hat clip. Electronically signed by: Cara Rodriges DO 06/28/2025 11:07 AM EDT Dictated By: Cara Rodriges DO Signed By: <Electronically signed by Cara Rodirges DO in OV> 06/28/25 1107 DD/ 1013 TD/TT: 06/28/25 1104 Oil Recovery Unit Operator: Procedure Note Donotuseinterpreter, Image - 06/28/[address] [address] [id number] Mammography Report Signed Patient: Nicolas CastR#: [id number] : 1975Acct:[id number] Age/Sex: 49 / FADM Date: 06/28/25 Loc: [facility] Attending Dr: Aaron Pringle MD Ordering Physician: Aaron Pringleesults: Date of Service: 06/28/25Follow Up: Procedure(s): MM surgical specimen Accession Number(s): [id number] cc: Shereen Latham MD; Aaron Pringle MD Single left breast specimen radiograph demonstrates a tag with the barbell clip and a second tag with a top hat clip. Electronically signed by: Cara Rodriges DO 06/28/2025 11:07 AM EDT RP Workstation: [employer] Dictated By: Cara Rodriges DO Signed By: <Electronically signed by Cara Rodriges DO in OV> 06/28/25 1107 DD/ 1013 TD/TT: 06/28/25 1104 Oil Recovery Unit Operator: [facility] External Provider IMG BI PROCEDURES Edited Result - Final documented in this encounter Visit Diagnoses Diagnosis Bilateral malignant neoplasm of breast in female, unspecified estrogen receptor status, unspecified site of breast ([facility]/HCC)- Primary Abnormal mammogram Abnormal mammogram, unspecified documented in this encounter Additional Health Concerns Assessment Noted Time PHQ-9 Depression Total Score: 21 025 11:03 AM EDT documented as of this encounter Care Teams Local Delivery Driver Relationship Specialty Start Date End Date Shereen Latham MD [address] [place] [address] PCP - General Family Medicine 11/02/18 Sury Benitez [address] [place] [address] Dr [address] [place] [address] Pulmonary Disease 09/27/24 Nirali Madrid OD [address] [place] [address] Optometry 10/27/24 Li Grande MD [address] [place] [address] Hematology and Oncology 10/27/24 Anselmo Gates MD [address] [place] [address] Drive [address] [place] [address] Orthopaedic Surgery 10/27/24 Margaret Holman [address] [place] [address] Cardiology 10/27/24 Herberth Stokes MD [address] [facility] [address] [place] [address] Gastroenterology 10/27/24 Hilton Palacios MD [address] [place] [address], [address] [place] [address] Neurology 02/06/25 Aaron Pringle MD [address] [place] [address] [place] [address] General Surgery 03/07/25 Pily Delaney Mobile Ui DesignerEducation Teacher 07/22/24 Elie Vicky [facility] Psychology 12/29/24 documented as of this encounter
--- OUTSIDE RECORDS SUMMARY | 2025-07-10 16:23 | XMS_ITS | Encounter Summary ---
Author Organization [employer] Address [address] [facility] 7t [place] [address] Care Team Providers Care Managed Services Consultant Name Role Phone [place], Shereen NOLASCO Primary Care Provider [phone] Nupur Bullock PharmD Unavailable Sury Benitez Unavailable [phone] Julius, Nirali OD Unavailable Li Grande MD Unavailable [phone] Anselmo Gates MD Unavailable Margaret Holman Unavailable Herberth Stokes MD Unavailable [phone] Hilton Palacios MD Unavailable [phone] Aaron Pringle MD Unavailable [phone] Lori Batista Unavailable [phone] Neelima Raygoza Unavailable Encounter Details Date Type Department Care Team (Latest Contact Info) Description 07/06/2019 Abstract [facility] CONVERSIONS Dental, Provider, DDS Social History Tobacco [...] Description 08/07/2025 1:30 PM EDT Office Visit [facility] ADULT DENTAL [address] [place] [address] Paz-Connor, Isa, DDS [address] [place] [address] 09/13/2025 3:15 PM EST Office Visit [facility] MEDICINE [address] [place] [address] Shereen Latham MD [address] [place] [address] documented as of this encounter Visit Diagnoses Not on filedocumented in this encounter Care Teams Managed Services Consultant Relationship Specialty Start Date End Date Shereen Latham MD [address] [place] [address] PCP - General Family Medicine 11/02/18 Nupur Bullock, CharleneD [address] [place] [address] Pharmacist Internal Medicine 08/09/24 05/15/25 Sury Benitez [address] [place] [address] [address] [place] [address] Pulmonary Disease 09/27/24 Nirali Madrid OD [address] [place] [address] Optometry 10/27/24 Li Grande MD [address] [place] [address] Hematology and Oncology 10/27/24 Anselmo Gates MD [address] [place] [address] Orthopaedic Surgery 10/27/24 Margaret Holman [address] [place] [address] Cardiology 10/27/24 Herberth Stokes MD [address] [place] [address] Gastroenterology 10/27/24 Hilton Palacios MD [address] [facility], [address] [place] [address] Neurology 02/06/25 Aaron Pringle MD [address] [place] [address] General Surgery 03/07/25 Lori Batista Registered Nurse 06/15/25 06/15/25 Neelima Raygoza 06/15/25 06/16/25 Pily Delaney Radio OfficerSewer Head 07/22/24 Elie Vicky [facility] 12/29/24 documented as of this encounter
--- OUTSIDE RECORDS SUMMARY | 2025-07-10 16:23 | XMS_ITS | Clinical Summary ---
Author Organization [employer] Address [address] [place] [address] Care Team Providers Care Throw Out Clerk Name Role Phone [place], Shereen NOLASCO Primary Care Provider [phone] Sury Benitez Unavailable [phone] Nirali Madrid OD Unavailable Li Grande MD Unavailable [phone] Anselmo Gates MD Unavailable Margaret Holman Unavailable Herberth Stokes MD Unavailable [phone] Hilton Palacios MD Unavailable [phone] Aaron Pringle MD Unavailable [phone] Allergies Active Allergy Reactions Criticality Noted [...] instructed 1 each 2 02/12/20 24 Active lidocaine (Lidoderm) 5 % patchIndication [...] OF BREATH 18 g 10/18/20 24 Active magnesium oxide (Mag-Ox) 400 MG tabletIndicatio ns:Hypomagnesem ia TAKE 1 TABLET BY MOUTH THREE QID 360 tablet 3 11/09/19 25 Active allopurinol (Zyloprim) 100 MG tabletIndicatio ns:Gout, [...] EVENING 180 tablet 3 01/13/20 25 Active sodium chloride ([place]) 0.65 % nasal sprayIndication s:Nasal congestion Administer 1 spray into each nostril if needed for congestion. 15 mL 11 03/03/20 25 026 Active cetirizine (ZyrTEC) 10 MG tabletIndicatio ns:Nasal congestion TAKE 1 TABLET BY MOUTH EVERY DAY NEEDED FOR ALLERGIES 90 tablet 3 03/03/20 25 Active furosemide (Lasix) 40 MG tabletIndicatio ns:Benign essential hypertension TAKE 1 TABLET BY MOUTH EVERY MORNING 90 tablet 1 05/03/20 25 Active Acetaminophen Extra Strength 500 MG tabletIndicatio ns:Pain TAKE 1 TABLET BY MOUTH EVERY 6 TO 8 HOURS NEEDED FOR PAIN OR FEVER 60 tablet 06/09/20 25 Active mometasone (Nasonex) 50 MCG/ACT nasal sprayIndication s:Nasal congestion Administer 2 sprays into each nostril Once per day for 14 days. 17 g 06/16/20 25 Active metoprolol succinate XL (Toprol-XL) 50 MG 24 hr tabletIndicatio ns:Benign essential hypertension Take 50 mg by mouth in the morning and 50 mg in the evening. Do not crush or chew. Active LORazepam (Ativan) 1 MG tabletIndicatio ns:Anxiety Take 1 mg by mouth if needed each day for anxiety. Active fluticasone-venessa meterol (Advair) 115-21 MCG/ACT inhalerIndicati ons:Mild intermittent reactive airway disease without complication Inhale 2 puffs in the morning and at bedtime. Rinse mouth with water after use to reduce aftertaste and incidence of candidiasis. Do not swallow. Active spironolactone (Aldactone) 25 MG tabletIndicatio ns:Benign essential hypertension Take one half tablet by mouth once daily 025 Discontinued carBAMazepine (TEGretol) 200 MG tablet TAKE 1/2 TABLET BY MOUTH TWICE DAILY IN THE MORNING AND EVENING 05/09/20 025 Discontinued(M ed list cleanup (will not trigger notification to Pharmacy)) LORazepam (Ativan) 1 MG tablet TAKE 1 TABLET BY MOUTH EVERY DAY NEEDED FOR SEVERE ANXIETY 04/13/20 025 Discontinued(M ed list cleanup (will not trigger notification to Pharmacy)) metoprolol succinate XL (Toprol-XL) 50 MG 24 hr tablet Take 50 mg by mouth at bedtime. 03/31/20 25 025 Discontinued pregabalin (Lyrica) 25 MG capsule TAKE 3 CAPSULES BY MOUTH EVERY DAY AT BEDTIME 04/19/20 025 Discontinued(M ed list cleanup (will not trigger notification to Pharmacy)) Advair HFA 115-21 MCG/ACT inhaler INHALE 2 PUFFS BY MOUTH EVERY TWELVE HOURS, RINSE MOUTH AFTER USING. 05/09/20 25 025 Discontinued(M ed list cleanup (will not trigger notification to Pharmacy)) Tirzepatide-Rey ght Management (Zepbound) 2.5 MG/0.5ML solution auto-injectorIn dications:Obesi ty Inject 0.5 mL (2.5 mg) under the skin 1 (one) time per week. Start 2.5 mg weekly x 4 weeks, then increased to 5 mg x 4 weeks, then increase to 7.5 mg weekly 2 mL 05/24/20 25 025 doxycycline (Vibra-Tabs) 100 MG tabletIndicatio ns:Right otitis media, unspecified otitis media type Take 1 tablet (100 mg) by mouth 2 times daily for 7 days. Take with a full glass of water and do not lie down for at least 30 minutes after. 14 tablet 06/16/20 025 Hospital, Clinic, or Other Facility Administered Medication Ordered Dose Route Frequency Start Date End Date Status aspirin chewable tablet 325 mgIndications:Precordial pain 325 mg PO Once 06/14/2025 06/14/2025 Ended Active Problems Problem Noted Date Diagnosed Date Shortness of breath 06/14/2025 Precordial pain 06/14/2025 Assessment & Plan (06/14/2025 12:20 PM EDT): Patient is high risk I will give aspirin 325mg at office EKG done sinus tachy prolonged Qtc I will send her to the emergency room, EMS called Sebaceous cyst of labia 06/08/2025 Overview (06/08/2025): -seen by Dr. Pena 06/07/25 Discussed with the patient the finding on pelvic exam sebaceous cyst recommended discontinue shaving the affected area. Instructions given the patient to call if persistent large or tender to call for I D. All questions answered, the patient verbalized understanding Class 1 obesity due to exces s calories with serious comorbidity and body mass index (BMI) of 31.0 to 31.9 in adult 05/24/2025 Overview (05/24/2025): Baseline weight: 201 lbs. -given BMI >30kg/m2 or >27kg/m2 with one or more weight related comorbidities pt is a candidate for glucagon-like peptide-1s (GLP-1) to assist with weight loss -pt has attempted > 3 months of dietary changes and increased physical activity without significant reduction in weight -patient counseled this medication is to be used in combination with reduced calorie diet and increased physical activity -Contraindication to phentermine: history of agitated states , arrhythmias, history of cardiovascular disease , history of drug abuse , and congestive heart failure -Reviewed w/ pt side effects of GLP1 and how to mitigate incl eating small portions and do not eat through sensation of fullness. No personal or family h/o papillary thyroid cancer. No personal h/o pancreatitis. Does/does not have retinopathy. Refrigerate but do not freeze. -For Zepbound (tirzepatide) started prescription 05/24/25. Discussed risk and benefits. Start 2.5mg subcutaneously q week x 1 month, then 5mg subcutaneously q week. May increased by 2.5mg q 4 weeks with max 15mg/wk Assessment & Plan (06/22/2025 11:51 AM EDT): Assessment & Plan (05/24/2025 1:44 PM EDT): Baseline weight: 201 lbs. -given BMI >30kg/m2 or >27kg/m2 with one or more weight related comorbidities pt is a candidate for glucagon-like peptide-1s (GLP-1) to assist with weight loss -pt has attempted > 3 months of dietary changes and increased physical activity without significant reduction in weight -patient counseled this medication is to be used in combination with reduced calorie diet and increased physical activity -Contraindication to phentermine: history of agitated states , arrhythmias, history of cardiovascular disease , history of drug abuse , and congestive heart failure -Reviewed w/ pt side effects of GLP1 and how to mitigate incl eating small portions and do not eat through sensation of fullness. No personal or family h/o papillary thyroid cancer. No personal h/o pancreatitis. Does/does not have retinopathy. Refrigerate but do not freeze. -For Zepbound (tirzepatide) started prescription 05/24/25. Discussed risk and benefits. Start 2.5mg subcutaneously q week x 1 month, then 5mg subcutaneously q week. May increased by 2.5mg q 4 weeks with max 15mg/wk Orders: Tirzepatide-Weight Management (Zepbound) 2.5 MG/0.5ML solution auto-injector; Inject 0.5 mL (2.5 mg) under the skin 1 (one) time per week. Start 2.5 mg weekly x 4 weeks, then increased to 5 mg x 4 weeks, then increase to 7.5 mg weekly Ductal hyperplasia of breast 05/24/2025 Overview (05/24/2025): -LEFT mammogram and US 02/23/25 IMPRESSION: No [...] finding -biopsy with Dr. Fox done 03/06/25, rreast, left, stereotactic core biopsy: -Minute focus of atypical ductal hyperplasia. -Focal gynecomastia-like hyperplasia. -Predominantly benign breast tissue and adipose. -Note from Dr. Pringle 03/16/25 revealed a minute focus of atypical ductal hyperplasia. Findings were discussed in detail and I recommended a wider excision to assure complete removal. She is currently being evaluated for tachycardia and has a quality assurance monitor body in place. I recommended a left breast lumpectomy with localizer and after discussion of the procedure, risks, and alternatives, she consents to the surgery. -Mammogram 04/20/25 ASSESSMENT: LEFT BREAST: BI-RADS 4 suspicious. Recommend MRI guided core needle biopsy at this time. In addition there is another 5 mm foci for which management will be pending biopsy of the above mass to include six-month follow-up MRI for further evaluation of stability. RIGHT BREAST: BI-RADS 2 benign. Assessment & Plan (05/24/2025 1:44 PM EDT): -LEFT mammogram and US 02/23/25 IMPRESSION: No [...] finding -biopsy with Dr. Fox done 03/06/25, rreast, left, stereotactic core biopsy: -Minute focus of atypical ductal hyperplasia. -Focal gynecomastia-like hyperplasia. -Predominantly benign breast tissue and adipose. -Note from Dr. Pringle 03/16/25 revealed a minute focus of atypical ductal hyperplasia. Findings were discussed in detail and I recommended a wider excision to assure complete removal. She is currently being evaluated for tachycardia and has a quality assurance monitor body in place. I recommended a left breast lumpectomy with localizer and after discussion of the procedure, risks, and alternatives, she consents to the surgery. -Mammogram 04/20/25 ASSESSMENT: LEFT BREAST: BI-RADS 4 suspicious. Recommend MRI guided core needle biopsy at this time. In addition there is another 5 mm foci for which management will be pending biopsy of the above mass to include six-month follow-up MRI for further evaluation of stability. RIGHT BREAST: BI-RADS 2 benign. Abnormal mammogram 04/26/2025 Overview (07/06/2025): Hx breast cancer . -Mammogram 04/20/25 ASSESSMENT: LEFT BREAST: BI-RADS 4 suspicious. Recommend MRI guided core needle biopsy at this time. In addition there is another 5 mm foci for which management will be pending biopsy of the above mass to include six-month follow-up MRI for further evaluation of stability. RIGHT BREAST: BI-RADS 2 benign. -06/01/25 Breast, left, excision: Breast tissue with usual ductal hyperplasia and columnar cell hyperplasia; negative for atypical ductal hyperplasia or carcinoma. -06/07/25 MRI guided left breast biopsy: Breast tissue with 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 Results are benign and concordant. Recommend breast surgical consultation for excision of 2 sites of known atypical ductal hyperplasia in the left breast from previous needle core biopsies. -Scheduled next week(06/26/25) with Dr. Pringle for lumpectomy on left breast. -Left breast lumpectomy with localizer x2, lateral internal sphincterotomy 06/28/[address] Fox - Invasive ductal carcinoma, MSBR grade 1; 6 mm in size; margins negative. Assessment & Plan (06/22/2025 11:51 AM EDT): Hx breast cancer . -Mammogram 04/20/25 ASSESSMENT: LEFT BREAST: BI-RADS 4 suspicious. Recommend MRI guided core needle biopsy at this time. In addition there is another 5 mm foci for which management will be pending biopsy of the above mass to include six-month follow-up MRI for further evaluation of stability. RIGHT BREAST: BI-RADS 2 benign. -06/01/25 Breast, left, excision: Breast tissue with usual ductal hyperplasia and columnar cell hyperplasia; negative for atypical ductal hyperplasia or carcinoma. -06/07/25 MRI guided left breast biopsy: Breast tissue with 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 Results are benign and concordant. Recommend breast surgical consultation for excision of 2 sites of known atypical ductal hyperplasia in the left breast from previous needle core biopsies. -Scheduled next week(06/26/25) with Dr. Pringle for lumpectomy on left breast. Assessment & Plan (04/26/2025 4:15 PM EDT): Lab Results Component Value Date FERRITIN 144 03/02/2025 FERRITIN 180 11/08/2024 HGB 11.2 (L) 03/02/2025 HGB 11.4 (L) 12/29/2024 HGB 12.5 07/01/2022 HGB 12.2 01/23/2022 HEMATOCRIT 37.0 07/01/2022 HEMATOCRIT 36.0 01/23/2022 -will continue to monitor Cardiomyopathy 04/04/2025 Environmental allergies 04/04/2025 Multiple pulmonary nodules 04/04/2025 Atrial tachycardia 03/01/2025 Overview (06/22/2025): -per note from Margaret Holman 02/27/25 EKG [...] be increased up to 50 mg daily. -Saw cardiology 06/20/25 changed metoprolol succinate ER from 50mg once daily to BID, hold spironolactone, and schedule follow-up for hear rate monitoring. Assessment & Plan (06/22/2025 11:51 AM EDT): -per note from Margaret Holamn 02/27/25 EKG last visit showed sinus tachycardia, [...] be increased up to 50 mg daily. -Saw cardiology 06/20/25 changed metoprolol succinate ER from 50mg once daily to BID, hold spironolactone, and schedule follow-up for hear rate monitoring. Assessment & Plan (03/02/2025 11:54 AM EDT): -per note from [facility] 02/27/25 EKG last visit showed sinus tachycardia, [...] up in 2 months Gout 07/13/2024 Overview (06/22/2025): Lab Results Component Value Date URICACID 5.4 04/19/2025 URICACID 5.7 03/02/2025 URICACID 5.8 (H) 12/29/2024 URICACID 5.9 (H) 08/30/2024 URICACID 5.4 06/16/2024 -Pt initially treated for gout in R 04/21/24 with uric acid 7.9 -Seen by direct care provider Dr. Bernstein 05/11/24 or evaluation of acute gout affecting left foot. -Pt admitted 07/25/24-07/2524 for swelling, pain, and warmth in the right knee. Patient had a low fever (100.3 F) and elevated WBC (32412 cells/uL), CRP, and ESR. Orthopedic surgery consulted [...] colchicine 0.3 mg Twice daily for prophylaxis -Seen by Dr. Clarke direct care provider 04/19/25 Continue allopurinol 200 mg daily, plan to repeat acid level before next visit and increase allopurinol titrate allopurinol if needed to reach serum uric acid level <6 mg/dL(2020 [employer] guideline for the management of gout: titrate allopurinol in 100 mg increments every 2 to 4 weeks to achieve the desired serum uric acid level, doses greater than 300 mg/day are often needed to reach desired uric acid target). Assessment & Plan (06/22/2025 11:51 AM EDT): Lab Results Component Value Date URICACID 5.4 04/19/2025 URICACID 5.7 03/02/2025 URICACID 5.8 (H) 12/29/2024 URICACID 5.9 (H) 08/30/2024 URICACID 5.4 06/16/2024 -Pt initially treated for gout in R 04/21/24 with uric acid 7.9 -Seen by direct care provider Dr. Bernstein 05/11/24 or evaluation of acute gout affecting left foot. -Pt admitted 07/25/24-07/2524 for swelling, pain, and warmth in the right knee. Patient had a low fever (100.3 F) and elevated WBC (14065 cells/uL), CRP, and ESR. Orthopedic surgery consulted [...] colchicine 0.3 mg Twice daily for prophylaxis -Seen by Dr. Clarke direct care provider 04/19/25 Continue allopurinol 200 mg daily, plan to repeat acid level before next visit and increase allopurinol titrate allopurinol if needed to reach serum uric acid level <6 mg/dL(2020 [employer] guideline for the management [...] 04/21/24 with uric acid 7.9 -Seen by direct care provider Dr. Bernstein 05/11/24 or evaluation of acute gout affecting left foot. -Pt admitted 07/25/24-07/2524 for swelling, pain, and warmth in the right knee. Patient had a low fever (100.3 F) and elevated WBC (66105 cells/uL), CRP, and ESR. Orthopedic surgery consulted [...] reach serum uric acid level <6 mg/dL(2020 [place] guideline for the management [...] reach serum uric acid level <6 mg/dL(2020 [employer] guideline for the management [...] ON 08/24/2024 9:45 AM BY JOLIE PA [facility] (07/25/2024 - 07/27/2024) Patient presented with swelling, pain, and warmth in the right knee. Patient had a low fever (100.3 F) and elevated WBC (88059 cells/uL), CRP, and ESR. Orthopedic surgery consulted [...] by mouth once daily for 5 days. [facility] ED (08/07/2024) Patient [...] Plan (06/29/2024 4:47 PM EDT): -prescribed doxycycline (HFpEF) heart failure with preserved ejection fr action 06/29/2024 Overview (03/24/2025): -Echocardiogram done 10/18/2021 had shown EF 30-35%, mild LVH. follow-up after that finding. A stress test at that time was incomplete. -Dx with acute congestive heart failure with reduced EF during admission to [facility] 06/22/24. - She was started on [...] effusion and indeterminate diastolic function -Seen by [facility] 08/01/24 : exercise nuclear stress test ordered for further evaluation of her Congestive heart failure and prior cardiomyopathy. Her cardiomyopathy may be related to uncontrolled hypertension, alcohol use. Ischemia will need to be ruled out. -Note from Margaret Holman 03/23/25: -exercise myocardial perfusion test 02/24/25: Myocardial perfusion imaging study shows normal myocardial perfusion. Gated LVEF is 45% during stress and 56% during rest. Correlate with echocardiogram. Transient ischemic dilatation not present. chocardiogram done 10/18/2021 had shown EF 30-35%, mild LVH. She did follow with our office again until 07/2024. Last echo 06/23/2024 during [facility] heart failure admission, showed EF 55-60%, small loculated effusion over the left ventricle. Nuclear stress test done 02/09/2025 showed exercise 5 minutes with no EKG changes and normal myocardial perfusion imaging. She does not appear fluid overloaded on exam today. Continue current meds including Lasix, Aldactone. Continue losartan andmetoprolol XL for neurohormonal modulation. She tells me she has only been taking half a tablet of the metoprolol. Will have her take the full 25 mg dose. Signs and symptoms of heart failure reviewed with her. Cardiology follow-up 6 months, sooner if needed Assessment & Plan (06/22/2025 11:51 AM EDT): -Echocardiogram done 10/18/2021 had shown EF 30-35%, mild LVH. follow-up after that finding. A stress test at that time was incomplete. -Dx with acute congestive heart failure with reduced EF during admission to [facility] 06/22/24. - She was started on [...] effusion and indeterminate diastolic function -Seen by [facility] 08/01/24 : exercise nuclear stress test ordered for further evaluation of her Congestive heart failure and prior cardiomyopathy. Her cardiomyopathy may be related to uncontrolled hypertension, alcohol use. Ischemia will need to be ruled out. -Note from Margaret Holman 03/23/25: -exercise myocardial perfusion test 02/24/25: Myocardial perfusion imaging study shows normal myocardial perfusion. Gated LVEF is 45% during stress and 56% during rest. Correlate with echocardiogram. Transient ischemic dilatation not present. chocardiogram done 10/18/2021 had shown EF 30-35%, mild LVH. She did follow with our office again until 07/2024. Last echo 06/23/2024 during [facility] heart failure admission, showed EF 55-60%, small loculated effusion over the left ventricle. Nuclear stress test done 02/09/2025 showed exercise 5 minutes with no EKG changes and normal myocardial perfusion imaging. She does not appear fluid overloaded on exam today. Continue current meds including Lasix, Aldactone. Continue losartan andmetoprolol XL for neurohormonal modulation. She tells me she has only been taking half a tablet of the metoprolol. Will have her take the full 25 mg dose. Signs and symptoms of heart failure reviewed with her. Cardiology follow-up 6 months, sooner if needed -Saw cardiology 06/20/25 changed metoprolol succinate ER from 50mg once daily to BID, hold spironolactone, and schedule follow-up for hear rate monitoring. Assessment & Plan (12/29/2024 10:27 AM EST): >>ASSESSMENT AND PLAN FOR HISTORY OF CHRONIC CHF WRITTEN ON 06/29/2024 4:09 PM BY JOLIE Sampson with acute congestive heart failure with reduced EF during recent admission to [facility] 06/22/24. Pt was volume overloaded therefore [...] with reduced EF during recent admission to [facility] 06/22/24. Pt was volume overloaded therefore [...] failure with reduced EF during admission to [facility] 06/22/24. - She was started on [...] effusion and indeterminate diastolic function -Seen by [facility] 08/01/24 : exercise nuclear stress [...] failure with reduced EF during admission to [facility] 06/22/24. - She was started on [...] effusion and indeterminate diastolic function -Seen by [facility] 08/01/24 : exercise nuclear stress [...] the future. Iron deficiency anemia 01/11/2024 Overview (04/26/2025): Lab Results Component Value Date FERRITIN 144 03/02/2025 FERRITIN 180 11/08/2024 HGB 11.2 (L) 03/02/2025 HGB 11.4 (L) 12/29/2024 HGB 12.5 07/01/2022 HGB 12.2 01/23/2022 HEMATOCRIT 37.0 07/01/2022 HEMATOCRIT 36.0 01/23/2022 -will continue to monitor Assessment & Plan (04/26/2025 4:15 PM EDT): Lab Results Component Value Date FERRITIN 144 03/02/2025 FERRITIN 180 11/08/2024 HGB 11.2 (L) 03/02/2025 HGB 11.4 (L) 12/29/2024 HGB 12.5 07/01/2022 HGB 12.2 01/23/2022 HEMATOCRIT 37.0 07/01/2022 HEMATOCRIT 36.0 01/23/2022 -will continue to monitor Assessment & Plan (06/29/2024 3:39 PM EDT): Lab Results Component Value Date FERRITIN 118 06/16/2024 FERRITIN 775 (H) 01/04/2024 HGB 10.7 (L) 06/16/2024 HGB 12.8 04/09/2024 HGB 12.5 07/01/2022 HGB 12.2 01/23/2022 HEMATOCRIT 37.0 07/01/2022 HEMATOCRIT 36.0 01/23/2022 Mild reactive airways disease 01/11/2024 Overview (06/22/2025): -Pulmonology note 09/08/24 PFT which revealed a [...] cardiology. Pulmonology note with Sury Benitez NP 04/07/25 reviewed - Prescribed fluticasone furoate (Arnuity Ellipta) [...] or sooner if needed. Assessment & Plan (06/22/2025 11:51 AM EDT): -Pulmonology note 09/08/24 PFT which revealed a [...] cardiology. Pulmonology note with Sury Benitez NP 04/07/25 reviewed - Prescribed fluticasone furoate (Arnuity Ellipta) [...] Complex care coordination 01/11/2024 Overview (01/11/2024): -Has [facility] services with [facility] -She is applying [facility] 01/11/2024 -In our complex care management program -referred to [facility] on 01/04/2024 -Messaged sent to [facility] for assistance in care visits Assessment & Plan (06/22/2025 11:51 AM EDT): -Has [facility] services with [facility] Martin is applying [facility] 01/11/2024 -In our complex care management program -referred to [facility] on 01/04/2024 -Messaged sent to [facility] for assistance in care visits Assessment & Plan (04/26/2025 4:15 PM EDT): -Has [facility] services with [facility] Martin is applying [facility] 01/11/2024 -In our complex care management program -referred to [facility] on 01/04/2024 -Messaged sent to [facility] for assistance in care visits Assessment & Plan (12/29/2024 10:21 AM EST): -Has [facility] services with [facility] Martin is applying [facility] 01/11/2024 -In our complex care management program -referred to [facility] on 01/04/2024 -Messaged sent to [facility] for assistance in care visits Assessment & Plan (08/24/2024 9:19 AM EDT): -Has [facility] services with [facility] Martin is applying [facility] 01/11/2024 -In our complex care management program -referred to [facility] on 01/04/2024 -Messaged sent to [facility] for assistance in care visits Assessment & Plan (06/29/2024 4:06 PM EDT): -Has [facility] services with [facility] Martin is applying [facility] 01/11/2024 -In our complex care management program -referred to [facility] on 01/04/2024 -Messaged sent to [facility] for assistance in care visits Assessment & Plan (01/11/2024 9:30 AM EDT): -Has [facility] services with [facility] Martin is applying [facility] 01/11/2024 -In our complex care management program -referred to [facility] on 01/04/2024 -Messaged sent to [facility] for assistance in care visits Generalized anxiety [...] Management team and will reconnect with [facility]. Information given to patient. PLAN: (check [...] intervention , Patient to reach out to [facility] team as needed, and Patient to engage in OP therapy Provided patient with support in scheduling an Intake appt with [facility]. Anemia 07/29/2023 Overview (06/22/2025): Lab Results Component Value Date FERRITIN 144 03/02/2025 FERRITIN 180 11/08/2024 HGB 11.2 (L) 03/02/2025 HGB 11.4 (L) 12/29/2024 HGB 12.5 07/01/2022 HGB 12.2 01/23/2022 HEMATOCRIT 37.0 07/01/2022 HEMATOCRIT 36.0 01/23/2022 Pt does not want to take iron orally, she wants to go back to hematology for transfusion - Iron infusions ordered by [facility] DR. Grande - She recieved two sessions of iron infusion, but has not been to her third session - Hematology appointment scheduled on 12/23/23 - Not seeing Dr. Grande anymore and reports she cannot take iron supplements due to constipation. Encouraged to schedule appt to explore other options. 08/24/24 -She reestablished with hematology 08/24/2024 Assessment & Plan (06/22/2025 11:51 AM EDT): Lab Results Component Value Date FERRITIN 144 03/02/2025 FERRITIN 180 11/08/2024 HGB 11.2 (L) 03/02/2025 HGB 11.4 (L) 12/29/2024 HGB 12.5 07/01/2022 HGB 12.2 01/23/2022 HEMATOCRIT 37.0 07/01/2022 HEMATOCRIT 36.0 01/23/2022 Pt does not want to take iron orally, she wants to go back to hematology for transfusion - Iron infusions ordered by [facility] DR. Grande - She recieved two sessions of iron infusion, but has not been to her third session - Hematology appointment scheduled on 12/23/23 - Not seeing Dr. Grande anymore and reports she cannot take iron supplements due to constipation. Encouraged to schedule appt to explore other options. 08/24/24 -She reestablished with hematology 08/24/2024 Assessment & Plan (04/26/2025 4:15 PM EDT): Lab Results Component Value Date FERRITIN 144 03/02/2025 FERRITIN 180 11/08/2024 HGB 11.2 (L) 03/02/2025 HGB 11.4 (L) 12/29/2024 HGB 12.5 07/01/2022 HGB 12.2 01/23/2022 HEMATOCRIT 37.0 07/01/2022 HEMATOCRIT 36.0 01/23/2022 -will continue to monitor Assessment & Plan (08/24/2024 9:44 AM EDT): Lab Results Component Value Date FERRITIN 118 06/16/2024 FERRITIN 775 (H) 01/04/2024 HGB 10.4 (L) 07/24/2024 HGB 11.9 (L) 07/06/2024 HGB 12.5 07/01/2022 HGB 12.2 01/23/2022 HEMATOCRIT 37.0 07/01/2022 HEMATOCRIT 36.0 01/23/2022 Pt does not want to take iron orally, she wants to go back to hematology for transfusion - Iron infusions ordered by [facility] DR. Grande - She recieved two sessions [...] for transfusion - Iron infusions ordered by [facility] DR. Grande - She recieved two sessions [...] for transfusion - Iron infusions ordered by [facility] DR. Grande - She recieved two sessions [...] co-pay for psychological clearance. Hypomagnesemia 07/22/2023 Overview (04/26/2025): Received magnesium IV in ER -Dose increased to TID Magnesium Date Value Ref Range Status 03/02/2025 1.8 1.6 - 2.6 mg/dL Final Saw CDTM [...] repeat labs 12/29/24, normal Assessment & Plan (04/26/2025 4:15 PM EDT): Received magnesium IV in ER -Dose increased to TID Magnesium Date Value Ref Range Status 03/02/2025 1.8 1.6 - 2.6 mg/dL Final Saw CDTM [...] tablet 11/09/24 -ordered repeat labs 12/29/24, normal Orders: Magnesium; Future Assessment & Plan (12/29/2024 11:10 AM EST): [...] pedro back by: Janett Ortega Person calling: [employer] Date:06/16/24 Time: 1218 Saw CDTM on 08/16/24 [...] pedro back by: Janett Ortega Person calling: [employer] Date:06/16/24 Time: 1218 Assessment & Plan (07/29/2023 4:34 PM EDT): Received magnesium IV in ER -Dose increased to TID - Recheck in 2 weeks Other specified health status 07/20/2023 Overview (06/22/2025): -next physical exam due after 06/22/26 -eye care facilitated by [facility] -dental home is [facility] -health care proxy filed 06/29/24 Assessment & Plan (06/22/2025 11:51 AM EDT): -next physical exam due after 06/22/26 -eye care facilitated by [facility] -dental home is [facility] -health care proxy filed 06/29/24 Assessment & Plan (06/29/2024 4:03 PM EDT): -next physical exam due after 06/29/25 -eye care facilitated by [facility] -dental home is [facility] -health care proxy given and filed 06/29/24 Stage 3 chronic kidney disease 07/20/2023 Assessment & Plan (12/14/2023 12:11 PM EST): -labs ordered for further evaluation: Albumin, random urine w/ creatinine, Creatinine, Basic metabolic Panel. Pain in both feet 07/14/2023 Overview (05/24/2025): Unclear etiology Osteoarthritis vs peripheral neuropathy, exam, pulses normal, full rom, no swelling or palpable abnormality Plan: Plain x-rays, NCS. Pending on work up will decide on therapy not a good candidate for NSAIDS due to GI upset or tylenol due to elevated LFTs and active alcohol abuse. -referred to Podiatry 05/24/25 Assessment & Plan (05/24/2025 1:44 PM EDT): Unclear etiology Osteoarthritis vs peripheral neuropathy, exam, pulses normal, full rom, no swelling or palpable abnormality Plan: Plain x-rays, NCS. Pending on work up will decide on therapy not a good candidate for NSAIDS due to GI upset or tylenol due to elevated LFTs and active alcohol abuse. -referred to Podiatry 05/24/25 Assessment & Plan (07/22/2023 10:14 AM EDT): [...] to elevated LFTs and active alcohol abuse. Chronic GERD 05/26/2023 Cocaine use disorder in [...] with WBC to 13 White Blood Count 13.1 High X10*3/uL Lymphocytes Percent Auto 16.1 Low % Red Blood Count 3.95 Low X10*6/uL Monocytes Percent Auto 5.3 % Hemoglobin 12.2 g/dl Eosinophils Percent Auto 0.0 % Hematocrit 37.3 % Basophils Percent Auto 0.4 % Mean Corpuscular Volume 94.4 fL NRBC Pct Auto 0.0 /100WBC Mean Corpuscular Hemoglobin 30.9 pg Neutrophils Absolute Auto 10.1 High x10*3/uL Mean Corpuscular HGB Conc 32.7 g/dl Imm Gran Abs Auto 0.19 High X10*3/uL Red Cell Distribution Width 13.5 % Lymphocytes Absolute Auto 2.1 X10*3/uL Platelet Count 410 High X10*3/uL Monocytes Absolute Auto 0.7 X10*3/uL Mean Platelet Volume 11.1 fL Eosinophils Absolute Auto 0.0 X10*3/uL Neutrophils Percent Auto 76.8 High % Basophils Absolute Auto 0.1 X10*3/uL Imm Gran Pct Auto 1.4 High % NRBC Abs Auto 0.000 X10*3/uL Primary osteoarthritis of both knees 11/16/2022 Overview (03/21/2025): Seen orthopedics on 06/22/2023 for Osteoporosis of the knee Right greater then left. Scheduled nerve blocks Saw Dr. Yajaira Noguera on 08/22/24, recommended weaning off of prednisone and follow-up with rheumatology. Follow up with Dr. Gates 03/20/25 Right knee OA. Her primary pain seems to be fibromyalgia. I do not recommend treatment for her right knee at this time. F/u 6 mo if needed but not a suitable candidate at this time. Assessment & Plan (06/22/2025 11:51 AM EDT): Seen orthopedics on 06/22/2023 for Osteoporosis of the knee Right greater then left. Scheduled nerve blocks Saw Dr. Yajaira Noguera on 08/22/24, recommended weaning off of prednisone and follow-up with rheumatology. Follow up with Dr. Gates 03/20/25 Right knee OA. Her primary pain seems to be fibromyalgia. I do not recommend treatment for her right knee at this time. F/u 6 mo if needed but not a suitable candidate at this time. Assessment & Plan (08/24/2024 9:45 AM EDT): [...] left. Scheduled nerve blocks. Fibromyalgia 11/16/2022 Overview (04/26/2025): Pt has chronic pain syndrome. Multiple work up are normal. Most recent 04/2025 only MONTY pos 1:80 RF negative There is moderate evidence for efficacy for [...] to chronic pain group 03/02/25, recommended acupuncture clinic on 04/26/25 Assessment & Plan (06/22/2025 11:51 AM EDT): Pt has chronic pain syndrome. Multiple work up are normal. Most recent 04/2025 only MONTY pos 1:80 RF negative There is moderate evidence for efficacy for [...] to chronic pain group 03/02/25, recommended acupuncture clinic on 04/26/25 Assessment & Plan (04/26/2025 4:15 PM EDT): Pt has chronic pain syndrome. Multiple work up are normal. Most recent 04/2025 only MONTY pos 1:80 RF negative There is moderate evidence for efficacy for [...] to chronic pain group 03/02/25, recommended acupuncture clinic on 04/26/25 Assessment & Plan (04/04/2025 2:50 PM EDT): Pt attended and participated in chronic pain group today - good engagement with group model of care - continue to use combination of non-pharmacological modalities to address pain - followup in one week for theme stress and pain Assessment & Plan (03/02/2025 11:41 AM EDT): [...] anxiety and stress management. Transaminitis 11/16/2022 Overview (06/22/2025): -On 09/02/22 Pt had ultrasound sound for abdominal pain at [facility] revealing diffusely echogenic parenchyma with focal sparing around the gallbladder. No suspicious lesions. Impression showed liver likely representing hepatic steatosis and non- obstructing right kidney stone. Lab Results Component Value Date AST 19 03/02/2025 ALT 19 03/02/2025 ALT 22 02/12/2023 ALT 24 07/01/2022 ALP 111 03/02/2025 DIRECTBILIRU <0.2 03/02/2025 -pt reports bilateral flank pain and left sided abd pain. Ordered repeat abdominal US as well as US of bilateral kidney's 06/29/24 -US completed 07/08/24, US/US abdomen complete IMPRESSION: Increased hepatic parenchymal heterogeneity and echogenicity could be associated with hepatocellular disease/hepatic steatosis and substantially limits visualization. Hepatic contour is smooth. Correlation with liver function tests and clinical exam recommended to determine further management. 03/2025 LFTs normal. Assessment & Plan (08/24/2024 9:43 AM EDT): -On 09/02/22 Pt had ultrasound sound for abdominal pain at [facility] revealing diffusely echogenic parenchyma with focal [...] had ultrasound sound for abdominal pain at [facility] revealing diffusely echogenic parenchyma with focal [...] had ultrasound sound for abdominal pain at [facility] revealing diffusely echogenic parenchyma with focal [...] had ultrasound sound for abdominal pain at [facility] revealing diffusely echogenic parenchyma with focal [...] had ultrasound sound for abdominal pain at [facility]. Ultrasound showed diffusely echogenic parenchyma with focal sparing around the gallbladder. No suspicious lesions. Impression showed liver likely representing hepatic steatosis and non- obstructing right kidney stone. Benign essential hypertension 12/13/2021 Overview (06/22/2025): -Blood pressure is at goal -Continue lifestyle modifications -Continue current medications - Prescribed spironolactone (Aldactone) 25 MG tablet 11/09/24 -06/20/25 enterprise integration developer held spironolactone Assessment & Plan (06/22/2025 11:51 AM EDT): -Blood pressure is at goal -Continue lifestyle modifications -Continue current medications - Prescribed spironolactone (Aldactone) 25 MG tablet 11/09/24 -06/20/25 enterprise integration developer held spironolactone Assessment & Plan (04/26/2025 4:15 PM EDT): -Blood pressure is at goal -Continue lifestyle modifications -Continue current medications -Prescribed spironolactone (Aldactone) 25 MG tablet 11/09/24 Assessment [...] Alcohol use disorder, moderate, dependence 12/12 Overview (04/26/2025): Longstanding, severe olesya drinking with hx admissions and withdrawal. Care complicated by difficulty accepting/comprehending risk. We have many times discussed risks including liver damage, liver failure and the risk of dying if she continues to drink. At times she has been referred to [facility] but has [...] subsequently declined -Admitted for alcohol detox at [facility] 04/09/24 -reports she is currently not drinking 08/24/24. Encouraged to continue abstinence. -Vague about drinking, but seemingly still drinking 12/29/24 -reports no EtOH 04/26/25, thiamine and folate were discontinued due to polypharmacy and desire to decrease pill burden 04/26/25 Assessment & Plan (04/26/2025 4:15 PM EDT): Longstanding, severe olesya drinking with hx admissions and withdrawal. Care complicated by difficulty accepting/comprehending risk. We have many times discussed risks including liver damage, liver failure and the risk of dying if she continues to drink. At times she has been referred to [facility] for Support and Recovery but has [...] subsequently declined -Admitted for alcohol detox at [facility] 04/09/24 -reports she is currently not drinking 08/24/24. Encouraged to continue abstinence. -Vague about drinking, but seemingly still drinking 12/29/24 -reports no EtOH 04/26/25, thiamine and folate were discontinued due to polypharmacy and desire to decrease pill burden 04/26/25 Assessment & Plan (12/29/2024 10:23 AM EST): Longstanding, severe olesya drinking with hx admissions and withdrawal. Care complicated by difficulty accepting/comprehending risk. We have many times discussed risks including liver damage, liver failure and the risk of dying if she continues to drink. At times she has been referred to [facility] for Support and Recovery but has [...] subsequently declined -Admitted for alcohol detox at [facility] 04/09/24 -reports she is currently not [...] referred to [facility] for Support and Recovery but has [...] subsequently declined -Admitted for alcohol detox at [facility] 04/09/24 -reports she is currently not [...] received phenobarb improved her symptoms, patient declined nuisance wildlife specialist help to place her in rehab, [...] received phenobarb improved her symptoms, patient declined nuisance wildlife specialist help to place her in rehab, [...] after labs and testing Allergic rhinitis 12/12/2021 Bilateral malignant neoplasm of breast in female 12/12/2021 Overview (07/06/2025): Adenocarcinoma of the right breast with DCIS grade 3, cribriform type, invasive tumor 2.2 cm ER positive, FL positive, HER-2/PEREZ negative, two sentinel nodes negative. -[facility] Oct, [...] finding -biopsy with Dr. Fox done 03/06/25, rreast, left, stereotactic core biopsy: -Minute focus of atypical ductal hyperplasia. -Focal gynecomastia-like hyperplasia. -Predominantly benign breast tissue and adipose. -Note from Dr. Pringle 03/16/25 revealed a minute focus of atypical ductal hyperplasia. Findings were discussed in detail and I recommended a wider excision to assure complete removal. She is currently being evaluated for tachycardia and has a quality assurance monitor body in place. I recommended a left breast lumpectomy with localizer and after discussion of the procedure, risks, and alternatives, she consents to the surgery. -Mammogram 04/20/25 ASSESSMENT: LEFT BREAST: BI-RADS 4 suspicious. Recommend MRI guided core needle biopsy at this time. In addition there is another 5 mm foci for which management will be pending biopsy of the above mass to include six-month follow-up MRI for further evaluation of stability. RIGHT BREAST: BI-RADS 2 benign. -05/18/25 MRI-guided vacuum-assisted core biopsy: Predominantly fibrofatty breast parenchyma with a single focus of atypical ductal hyperplasia (ADH) -pathology 06/01/25 Breast, left, excision: Breast tissue with usual ductal hyperplasia and columnar az hyperplasia; negative for atypical ductal hyperplasia or carcinoma. -06/07/25 MRI guided left breast biopsy: Breast tissue with 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 Results are benign and concordant. Recommend breast surgical consultation for excision of 2 sites of known atypical ductal hyperplasia in the left breast from previous needle core biopsies. -Left breast lumpectomy with localizer x2, lateral internal sphincterotomy 06/28/[address] Fox, dx - Invasive ductal carcinoma, MSBR grade 1; 6 mm in size; margins negative. Assessment & Plan (06/22/2025 11:51 AM EDT): Adenocarcinoma of the right breast with DCIS grade 3, cribriform type, invasive tumor 2.2 cm ER positive, FL positive, HER-2/PEREZ negative, two sentinel nodes negative. -S/[facility], [...] finding -biopsy with Dr. Fox done 03/06/25, rreast, left, stereotactic core biopsy: -Minute focus of atypical ductal hyperplasia. -Focal gynecomastia-like hyperplasia. -Predominantly benign breast tissue and adipose. -Note from Dr. Pringle 03/16/25 revealed a minute focus of atypical ductal hyperplasia. Findings were discussed in detail and I recommended a wider excision to assure complete removal. She is currently being evaluated for tachycardia and has a quality assurance monitor body in place. I recommended a left breast lumpectomy with localizer and after discussion of the procedure, risks, and alternatives, she consents to the surgery. -Mammogram 04/20/25 ASSESSMENT: LEFT BREAST: BI-RADS 4 suspicious. Recommend MRI guided core needle biopsy at this time. In addition there is another 5 mm foci for which management will be pending biopsy of the above mass to include six-month follow-up MRI for further evaluation of stability. RIGHT BREAST: BI-RADS 2 benign. -05/18/25 MRI-guided vacuum-assisted core biopsy: Predominantly fibrofatty breast parenchyma with a single focus of atypical ductal hyperplasia (ADH) -pathology 06/01/25 Breast, left, excision: Breast tissue with usual ductal hyperplasia and columnar az hyperplasia; negative for atypical ductal hyperplasia or carcinoma. -06/07/25 MRI guided left breast biopsy: Breast tissue with 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 Results are benign and concordant. Recommend breast surgical consultation for excision of 2 sites of known atypical ductal hyperplasia in the left breast from previous needle core biopsies. -Scheduled next week(06/26/25) with Dr. Pringle for lumpectomy on left breast. Assessment & Plan (04/26/2025 4:15 PM EDT): Adenocarcinoma of the right breast with DCIS grade 3, cribriform type, invasive tumor 2.2 cm ER positive, FL positive, HER-2/PEREZ negative, two sentinel nodes negative. -S/[facility] Oct, [...] finding -biopsy with Dr. Fox done 03/06/25, rreast, left, stereotactic core biopsy: -Minute focus of atypical ductal hyperplasia. -Focal gynecomastia-like hyperplasia. -Predominantly benign breast tissue and adipose. -Note from Dr. Pringle 03/16/25 revealed a minute focus of atypical ductal hyperplasia. Findings were discussed in detail and I recommended a wider excision to assure complete removal. She is currently being evaluated for tachycardia and has a quality assurance monitor body in place. I recommended a left breast lumpectomy with localizer and after discussion of the procedure, risks, and alternatives, she consents to the surgery. -Mammogram 04/20/25 ASSESSMENT: LEFT BREAST: BI-RADS 4 suspicious. Recommend MRI guided core needle biopsy at this time. In addition there is another 5 mm foci for which management will be pending biopsy of the above mass to include six-month follow-up MRI for further evaluation of stability. RIGHT BREAST: BI-RADS 2 benign. Assessment & Plan (03/02/2025 11:48 AM EDT): Adenocarcinoma of the right breast with DCIS grade 3, cribriform type, invasive tumor 2.2 cm ER positive, FL positive, HER-2/PEREZ negative, two sentinel nodes negative. -S/p RIGHT mastectomy with sentinel node bx by Dr. Pres[facility] -Adriamycin/Cytoxan based chemotherapy started Oct, completed [...] tumor 2.2 cm ER positive, FL positive, HER-2/PEREZ negative, two sentinel nodes negative. -S/p [facility] Oct, [...] tumor 2.2 cm ER positive, FL positive, HER-2/PEREZ negative, two sentinel nodes negative. -S/p RIGHT [facility] with [facility] Oct, [...] tumor 2.2 cm ER positive, FL positive, HER-2/PEREZ negative, two sentinel nodes negative. -S/p RIGHT [facility] with [facility] Oct, [...] tumor 2.2 cm ER positive, FL positive, HER-2/PEREZ negative, two sentinel nodes negative. -S/p RIGHT [facility]astectomy with [facility] started Oct, [...] tumor 2.2 cm ER positive, FL positive, HER-2/PEREZ negative, two sentinel nodes negative. -S/p RIGHT [facility] with [facility] started Oct, [...] tumor 2.2 cm ER positive, FL positive, HER-2/PEREZ negative, two sentinel nodes negative. -S/p RIGHT [facility]astectomy with [facility] started Oct, [...] tumor 2.2 cm ER positive, FL positive, HER-2/PEREZ negative, two sentinel nodes negative. -S/p RIGHT mastectomy with [facility] started Oct, [...] tumor 2.2 cm ER positive, FL positive, HER-2/PEREZ negative, two sentinel nodes negative. -S/[facility] started Oct, completed 4 [...] tumor 2.2 cm ER positive, FL positive, HER-2/PEREZ negative, two sentinel nodes negative. -S/p RIGHT [facility] with [facility] started Oct, [...] due 10/2022. Vitamin D deficiency 12/12/2021 Overview (06/22/2025): Lab Results Component Value Date [id number] 79.4 05/15/2025 [id number] 58.3 06/16/2024 [id number] 106.4 01/04/2024 Assessment & Plan (04/26/2025 4:15 PM EDT): Lab Results Component Value Date [id number] 58.3 06/16/2024 [id number] 106.4 01/04/2024 [id number] 76.8 09/22/2023 Orders: Vitamin D, 25-Hydroxy, Total, Immunoassay; Future Assessment & Plan (06/29/2024 3:39 PM EDT): Lab Results Component Value Date [id number] 58.3 06/16/2024 [id number] 106.4 01/04/2024 [id number] 76.8 09/22/2023 Assessment & Plan (12/14/2023 12:09 PM EST): Lab Results Component Value Date [id number] 76.8 09/22/2023 -Labs ordered for further evaluation: Vitmain D, 25-hydroxy, Total, Immunoassay. 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 Per Dr. Krish Loomis's note from [facility] [employer], pt was due for repeat colposcopy in [...] CIN2-3. Per Dr. Krish Loomis's note from [facility] [employer], pt was due for repeat colposcopy in [...] CIN2-3. Per Dr. Krish Loomis's note from [facility], pt was due for repeat colposcopy in [...] CIN2-3. Per Dr. Krish Loomis's note from [facility], pt was due for repeat colposcopy in 2011. -Total Vaginal Hysterectomy 08/27/17 ('with MONICA 2 pathology and negative resection margins'). Per note dated 11/27/17 Dr. Reyes; 'patient to discontinue PAP screening'. -Vaginal pap NILM HPV negative 08/2018, per not no further paps indicated Severe episode of recurrent major depressive disorder, with psychotic features 04/19/2014 Overview (12/29/2024): [place]. 12/30/24. Had intake for psychiatry and has follow-up appt in 12/2024. Assessment & Plan (06/22/2025 11:51 AM EDT): -has therapist in [place]. Has appt. [...] Health Integration Plan Internal Follow up with [facility] Patient Self Plan Patient to utilize skills provided in intervention , Patient to reach out to [facility] team as needed, Patient to reach out to [facility] as needed, and will contact [facility] Intake number to connect with termite control service representative OP services, and psychiatrist. Rule Out Diagnoses: Social Anxiety Behavioral Health Diagnoses At this time Azra meets criteria for Visit Diagnoses: Problem List Items Addressed This Visit Alcohol use disorder, moderate, dependence (CMS/HCC) Severe episode of recurrent major depressive disorder, with psychotic features (CMS/HCC) Cocaine use disorder in remission Post traumatic stress disorder (PTSD) Generalized anxiety disorder with panic attacks Carpal tunnel syndrome 03/23/2014 Overview (11/16/2022): Nerve [...] left surgery Tobacco dependence syndrome 03/23/2014 Overview (04/26/2025): -Cigg/day: 5-6 -Age started: age 10 -Total years smokinyrs -Pack year history: 20 pack year Encouraged smoking cessation resources such as pharmacomtherapy, [facility] smoking cessation group, and [facility] pharmacy smoking cessation clinic Discussed USPSTF recommends [...] Ancillary findings as discussed. Assessment & Plan (04/26/2025 4:15 PM EDT): -Cigg/day: 5-6 -Age started: age 10 -Total years smokinyrs -Pack year history: 20 pack year Encouraged smoking cessation resources such as pharmacomtherapy, [facility] smoking cessation group, and [facility] pharmacy smoking cessation clinic Discussed USPSTF recommends [...] as pharmacomtherapy, [facility] smoking cessation group, and [facility] pharmacy smoking cessation clinic Discussed USPSTF recommends [...] as pharmacomtherapy, [facility] smoking cessation group, and [facility] pharmacy smoking cessation clinic Discussed USPSTF recommends [...] as pharmacomtherapy, [facility] smoking cessation group, and [facility] pharmacy smoking cessation clinic Discussed USPSTF recommends [...] as pharmacomtherapy, [facility] smoking cessation group, and [facility] pharmacy smoking cessation clinic Discussed USPSTF recommends annual lung cancer screening with low dose CT in people who meet the following criteria: -ages 50 to 80 years. -have a 20 pack-year smoking history. -currently smoke cigarettes or quit within the past 15 years. -LDCT: Resolved Problems Problem Noted Date Diagnosed Date Resolved Date Abdominal wall strain 04/04/20252024 Chronic bronchitis 04/04/2025 Pericardial effusion 04/04/2025 025 Restrictive ventilatory defect 04/04/2025 06/08/2025 Congestion of nasal sinus 03/02/2025 Overview (03/02/2025): -uri Nasal congestion 03/02/2025 04/04/2025 Overview (03/02/2025): Reports chronic-prolonged nasal congestion, due [...] prescribed sodium chloride (ocean) 65% nasal spay Sharp headache 08/24/2024 10/27/2024 Overview (08/24/2024): Reports sharp headaches lasting only a couple seconds in the occipital region. -referred to neurology 08/24/24 Assessment & Plan (08/24/2024 9:48 AM EDT): Reports sharp headaches lasting only a couple seconds in the occipital region. -referred to neurology 08/24/24 Flank pain 06/29/2024 02/06/2025 SOB (shortness of breath) 06/29/2024 Overview (12/29/2024): -Followed by [facility] with Sury Benitez NP -02/2024 [...] Plan (12/29/2024 11:03 AM EST): -Followed by [facility] with Sury Benitez NP -02/2024 [...] if needed. -pt reports she saw her film examiner and is continuing management with them. . Assessment & Plan (07/13/2024 2:15 PM EDT): -referred to pulmonology 06/29/24 -Pt reports she has appt to see film examiner 08/01/24 Assessment & Plan (06/29/2024 4:49 PM EDT): -referred to pulmonology 06/29/24 History of CHF (congestive heart failure) 06/28/2024 [...] flare 05/11/2024 12/29/2024 Overview (07/13/2024): Seen by direct care provider Dr. Bernstein 05/11/24 or evaluation of acute [...] Plan (07/13/2024 2:21 PM EDT): Seen by direct care provider Dr. Bernstein 05/11/24 or evaluation of acute [...] 03/30/2024 Achilles tendon pain bilateral 10/22/2023 03/30/2024 Tubular adenoma of colon 09/07/202305/2025 Overview (12/29/2024): Cologuard positive 08/27/23. Called pt [...] to cancellation. Pt agrees with the plan. Colon cancer screening 07/22/202309/07 Overview (07/22/2023): Cologaurd ordered 07/22/2023. Assessment & Plan (07/22/2023 10:24 AM EDT): Cologaurd ordered 07/22/2023. Elevated serum creatinine 07/14/2023 Normal oral exam 07/14/2023 04/04/2025 Assessment & Plan (07/14/2023 10:52 AM EDT): Patient requesting a Physical for her [facility] ICER hours to be re-instated. On exam today, her vitals are stable and her exam seems unchanged from previous one. Work up in progress for her c/o bilateral foot pain Hospital discharge follow-up 06/18/2023 07/20/2023 Assessment & Plan (07/14/2023 10:23 AM EDT): Patient here for a HDF. She was admitted to [facility] from 06/05-06/08 . [...] home to follow up with psychiatrist outpatient. History of alcohol withdrawal syndrome 06/05/2023 04/04/2025 Assessment & Plan (06/05/2023 10:40 AM EDT): No hallucinations or delirium CIWA score of 28 EMS called and arrived on scene within 10 minutes, transfer completed [facility] ER called with expect Hypertension 05/26/2023 12/14/2023 Assessment & Plan (05/26/2023 12:12 PM EDT): Not controlled today Pt says she took her Lisinopril and chlorthalidone this morning Hypokalemia 12/09/2022 10/27/2024 Hyperaldosteronism 11/16/2022 3 Overview (11/16/2022): Seen by [facility] 04/03/2022. Initially seen 12/2021 for hyperaldosteronism. Labs [facility] 10/2021 aldosterone 8, plasma renin 0.11, aldosterone/renin 72.7. She was likely on spironolactone and lisinopril at time of labs. Advise no spironolactone for 6 weeks and recheck renin aldosterone levels with renal panel and magnesium in panel coverer. Assessment & Plan (11/16/2022 10:55 AM EST): Seen by [facility] 04/03/2022. Initially seen 12/2021 for hyperaldosteronism. Labs [facility] 10/2021 aldosterone 8, plasma renin 0.11, aldosterone/renin 72.7. She was likely on spironolactone and lisinopril at time of labs. Advise no spironolactone for 6 weeks and recheck renin aldosterone levels with renal panel and magnesium in panel coverer. Generalized pain 09/14/2014 06/08/2025 Anxiety 04/19/2014 01/28/2024 Polysubstance abuse 04/19/2014 04/04/20 25 Encounters Date Type Department Care Team Description 07/02/2025 Refill [facility] [address] [place] [phone] Shereen Latham MD Alcohol abuse 06/28/2025 Orders Only [facility] External Provider, [facility] Bilateral malignant neoplasm of breast in female, unspecified estrogen receptor status, unspecified site of breast (CMS/HCC) (Primary Dx); Abnormal mammogram 06/23/[address] [address] Shereen Latham MD 06/22/2025 11:15 AM EDT Office Visit [address] [address] Shereen Latham MD Trigger finger, unspecified finger, unspecified laterality (Primary Dx); Benign essential hypertension; Mild intermittent reactive airway disease without complication; Atrial tachycardia (CMS/HCC); Heart failure with preserved ejection fraction, unspecified HF chronicity (CMS/HCC); Abnormal mammogram; History of right breast cancer; Anemia, unspecified type; Primary osteoarthritis of both knees; Gout of foot, unspecified cause, unspecified chronicity, unspecified laterality; Fibromyalgia; Anxiety; Severe episode of recurrent major depressive disorder, with psychotic features (CMS/HCC); Class 1 obesity due to excess calories with serious comorbidity and body mass index (BMI) of 31.0 to 31.9 in adult; Dietary counseling; Exercise counseling; Complex care coordination; Other specified health status 06/22/2025 Travel 06/21/[address] [address] Shereen Latham MD chartprep 06/16/2025 10:15 AM EDT Office Visit [facility] [address] [place] [phone] Naomi De Jesus ANP Right otitis media, unspecified otitis media type (Primary Dx); Heart failure with preserved ejection fraction, unspecified HF chronicity ([facility]); Shortness of breath; Nasal congestion 06/16/2025 Telephone [facility] [address] [place] [phone] Isa De La Rosa DDS active requested appt 06/16/2025 Patient Outreach [facility] [address] [place] [address] Shereen Latham MD Care Coordination (Communication to PT assigned CP Coordinator) 06/16/2025 Travel 06/15/2025 Telephone [facility] [address] [place] [phone] Shereen Latham MD ER Follow-up 06/15/2025 Patient Outreach [facility] [address] [place] [address] Shereen Latham MD Care Coordination (Formerly [facility] ED Follow Up) 06/15/2025 Patient Outreach [facility] [address] [place] [address] Shereen Latham MD Care Coordination (CP Care Coordination Chart Review) 06/15/2025 Patient Outreach [address] [phone] Shereen Latham MD 06/15/2025 Patient Outreach [address] [address] Shereen Latham MD 06/14/2025 2:20 PM EDT Office Visit [facility] [address] [place] [address] Junie Damon MD Shortness of breath; Precordial pain 06/14/2025 Travel 06/14/2025 Orders Only [facility] [address] [place] [phone] Shereen Latham MD Sebaceous cyst of labia (Primary Dx) 06/09/2025 Telephone [facility] [address] [place] [phone] Shereen Latham MD Referral 06/09/2025 Refill [facility] [address] [place] [address] Shereen Latham MD Pain 06/07/2025 6:00 PM EDT Office Visit [facility] [address] [place] [phone] Tari Chance NP Cough in adult patient (Primary Dx); Viral illness; Elevated blood pressure reading in office with diagnosis of hypertension 06/07/2025 Travel 06/07/[address] [address] Shereen Latham MD Nurse Triage 06/02/[address] [address] Shereen Latham MD Referral 06/01/2025 Orders Only GENERIC EXTERNAL DATA DEPARTMENT Provider, Generic External Data History of right breast cancer (Primary Dx); Abnormal mammogram 05/24/2025 11:30 AM EDT Office Visit [facility] [address] [place] [phone] Shereen Latham MD Class 1 obesity due to excess calories with serious comorbidity and body mass index (BMI) of 31.0 to 31.9 in adult (Primary Dx); Dietary counseling; Exercise counseling; Ductal hyperplasia of breast; Callus of foot; Pain in both feet 05/24/2025 Travel 05/23/2025 Telephone [facility] [address] [place] [phone] Shereen Latham MD CHART PREP 05/18/2025 Orders Only GENERIC EXTERNAL DATA DEPARTMENT Provider, Generic External Data History of right breast cancer (Primary Dx); Abnormal mammogram 05/15/2025 Travel 05/03/2025 Refill [facility] [address] [place] [address] Shereen Latham MD Benign essential hypertension 05/02/2025 Refill [facility] [address] [place] [address] Shereen Latham MD Pain; Benign essential hypertension 04/26/2025 9:30 AM EDT Office Visit [address] [address] Shereen Latham MD Abnormal mammogram (Primary Dx); History of right breast cancer; Anemia, unspecified type; Benign essential hypertension; Fibromyalgia; Complex care coordination; Class 1 obesity due to excess calories with serious comorbidity and body mass index (BMI) of 31.0 to 31.9 in adult; Dietary counseling; Exercise counseling; Tobacco dependence syndrome; Alcohol use disorder, moderate, dependence (CMS/HCC); Hypomagnesemia; Vitamin D deficiency; Iron deficiency anemia, unspecified iron deficiency anemia type 04/26/[address] [address] Shereen Latham MD Medication Question 04/26/2025 Travel 04/25/[address] [address] Shereen Latham MD CHART PREP 04/25/[address] [address] Shereen Latham MD Appointment Request 04/19/2025 Orders Only GENERIC EXTERNAL DATA DEPARTMENT Provider, Generic External Data History of right breast cancer (Primary Dx) 04/18/2025 Patient Outreach [facility] [address] [place] [address] Shereen Latham MD Pre-visit Planning (SDOH was already completed) 04/18/2025 Travel 04/15/2025 Travel from Last 3 Months Immunizations Immunization Administration [...] Never Tobacco Cessation:Ready to Q uit: Not Asked Alcohol Use Standard Drinks/Week Comments Yes 0 [...] Recorded No desire to become (finding) 0 06/22/2025 Sex and Gender Information Value Date Recorded Sex Assigned at Female 09/01/2022 10:14 AM EDT Legal Sex Female 10:14 AM EDT Gender Identity Female 09/01/2022 10:14 AM EDT Sexual Orientation Straight 09/01/2022 10 :14 AM EDT Last Filed Vital Signs Vital Sign Reading Time Taken Comments Blood Pressure 110/72 06/22/2025 11:20 AM EDT Pulse 113 06/22/2025 11:20 AM EDT Temperature 37.2 C (98.9 F) 06/22/2025 11:20 AM EDT Respiratory Rate 20 06/22/2025 11:20 AM EDT Oxygen Saturation 97% 06/22/2025 11:20 AM EDT Inhaled Oxygen Concentration - - Weight 90.4 kg (199 lb 6.4 oz) 06/22/2025 11:20 AM EDT Height 170.2 cm (5' 7 ) 06/22/2025 11:20 AM EDT Body Mass Index 31.23 06/22/2025 11:20 AM EDT Plan of Treatment Upcoming Encounters Date Type Department Care Team (Late st Contact Info) Description 08/07/2025 1:30 PM EDT Office Visit [facility] [address] [place] [phone] Paz-ConnorIsa abarca, DDS [address] [place] [phone] 09/13/2025 3:15 PM EST Office Visit [facility] [address] [place] [phone] Shereen Latham MD [address] [place] [phone] Health Maintenance Due Date Last Done Comments CT Colonography 1975 FIT 1975 Sigmoidoscopy 1975 DTaP/Tdap/Td Vaccines (4 - Tdap) 08/11/2020 08/10/2020, 07/16/2007, 07/05/1981, Additional history exists Zoster Vaccines (1 of 2) 2023 FOBT 08/27/2024 08/27/2023 Diagnostic Breast Imaging 07/02/20252024, 05/18/2025, 04/20/2025, Additional history exists Mammogram 07/02/2025 06/01/2025, 05/02, 04/20/2025, Additional history exists COVID-19 Vaccine ( season) 2025 02/09/2021 Influenza Vaccine (#1) 2025 09/06/2015 Dental Oral Exam 09/30/2025 03/29/2025, , 07/06/2019 Dental Prophylaxis 09/30/2025 03/29/2025, 1 11/28/2023, 08/16/2021, Additional history exists Depression Monitoring 11/24/2025 05/24/2025, 025 SDOH Screening 12/29/2025 12/29/2024 Alcohol/Substance Use Screening 03/02/2026 03/02/2025 Dental X-Ray: Bitewings 03/30/2026 03/29/20 25, 06/17/2024, 03/31/2024, Additional history exists Disability Screening 04/26/2026 04/26/2025 Family Planning (PISQ) 06/22/2026 06/22/2025 Tobacco Screening 06/22/2026 06/22/2025 Colonoscopy 07/11/2026 07/11/2024 Colorectal Cancer Screening 07/11/2026 FIT DNA/Cologuard 08/27/2026 08/27/2023 Dental X-Ray: Full Mouth 03/30/2028 03/29/2025, 0901/2019 Lipid Panel 12/29/2029 12/29/2024, 06/02, 09/22/2023, Additional [...] SURGICAL SPECIMEN Routine 06/28/2025 10:13 AM EDT HIGH SENSITIVITY TROPONIN I Routine 06/14/2025 5:50 PM EDT Sebaceous cyst of labia XR CHEST 1 VIEW Routine 06/14/2025 12:37 PM EDT ECG 12-LEAD Routine 06/14/2025 12:22 PM EDT Precordial pain POCT INFLUENZA A (ID NOW RAPID MOLECULAR) Routine 06/14/2025 12:00 PM EDT Shortness of breath POCT INFLUENZA B (ID NOW RAPID MOLECULAR) Routine 06/14/2025 11:57 AM EDT Shortness of breath POCT RAPID COVID ANTIGEN Routine 06/14/2025 11:53 AM EDT Shortness of breath MM RF TAG DEVICE LT Routine 06/14/2025 1 0:00 AM EDT MM RF TAG DEVICE ADD Routine 06/14/2025 10:00 AM EDT POCT INFLUENZA B (ID NOW RAPID MOLECULAR) Routine 06/07/2025 6:36 PM EDT Cough in adult patient POCT INFLUENZA A (ID NOW RAPID MOLECULAR) Routine 06/07/2025 6:36 PM EDT Cough in adult patient POCT RAPID COVID ANTIGEN Routine 06/07/2025 6:36 PM EDT Cough in adult patient BI MAMMOGRAM DIAGNOSTIC TOMOSYNTHESIS LEFT Routine 06/01/2025 11:25 AM EDT HEMATOXYLIN AND EOSIN STAIN Routine 06/01/2025 10:53 AM EDT BI MR GUIDED BREAST BIOPSY LEFT Routine 06/01/2025 9:04 AM EDT BI MAMMOGRAM DIAGNOSTIC TOMOSYNTHESIS LEFT Routine 05/18/2025 10:55 AM EDT HEMATOXYLIN AND EOSIN STAIN Routine 05/18/2025 10:25 AM EDT BI MR GUIDED BREAST BIOPSY LEFT Routine 05/18/2025 9:34 AM EDT VITAMIN D,25-OH,TOTAL,IA Routine 05/15/2025 1:46 PM EDT Vitamin D deficiency MAGNESIUM Routine 05/15/2025 1:46 PM EDT Hypomagnesemia BI MR BREAST W AND WO CONTRAST BILATERAL Routine 04/20/2025 12:20 PM EDT CYCLIC CITRULLINATED PEPTIDE (CCP) AB (IGG) Routine 04/19/2025 3:05 PM EDT History of right breast cancer MONTY SCREEN, IFA, W/REFL TITER AND PATTERN Routine 04/19/2025 3:05 PM EDT History of right breast cancer DNA (DS) ANTIBODY Routine 04/19/2025 3:0 5 PM EDT SCL-70 ANTIBODY Routine 04/19/2025 3:05 PM EDT SJOGREN'S ANTIBODIES (SS-A,SS-B) Routine 04/19/2025 3:05 PM EDT RHEUMATOID FACTOR Routine 04/19/2025 3:0 5 PM EDT URIC ACID Routine 04/19/2025 3:05 PM EDT D DIMER HIGH SENSITIVITY Routine 04/19/2025 3:05 PM EDT PROPHYLAXIS - ADULT Routine 03/29/2025 2 :00 PM EDT Dental plaque INTRAORAL - COMPLETE SERIES OF RADIOGRAPHIC IMAGES Routine 03/29/2025 2:00 PM EDT Dental plaque PERIODIC ORAL EVALUATION - ESTABLISHED PATIENT Routine 03/29/2025 2:00 PM EDT Dental plaque Encounter for dental examination Open fracture of tooth, initial encounter LIPID PANEL, STANDARD Routine 12/29/2024 10:53 AM EST Benign essential hypertension HM COLONOSCOPY Routine 07/11/2024 HEPATITIS PANEL, GENERAL Routine 06/16/2024 8:22 AM EDT Transaminitis HIV 1/2 ANTIGEN/ANTIBODY, FOURTH GENERATION W/RFL Routine 02/24/2024 8:47 AM EDT Routine screening for STI (sexually transmitted infection) LAB COLOGUARD COLON CANCER SCREEN Routine 08/27/2023 11:24 AM EDT Colon cancer screening ZZZ HISTORICAL HPV MRNA E6/E7 Routine 08/12/2018 10:57 AM EDT from Last 3 Months or Most Recently Relevant to Health Maintenance Results * Gross and Microscopic Level 5 (06/28/2025 10:55 AM EDT) 06/28/2025 10:5 5 AM EDT 06/28/2025 11:08 AM EDT [facility] - 07/05/2025 2:23 PM EDT ----- ------- Name: Azra Cast Age/Sex: 49/F : 1975 Unit#: [id number] Attend Dr: Aaron Pringle MD Re06/28/25 Status: [facility] Location: [facility] Disch: ----- ------- SPEC : [id number] RECD: 06/28/25 STATUS: CRAIG ANDERSEN NUM: [id number] MAYA: 06/28/25-[address] [facility] [address]: Aaron Pringle MD ENTERED: 06/28/25-1110 SP TYPE: Surgical OTHR DR: Shereen Latham MD ORDERED: Gross Micro L5, ER, FL, IOC, IHC, Add. immunos, IHC ER/FL/Her2N/4, Ki-67, p63, SMM, [id number] Diagnosis Breast, left, lumpectomy: - Invasive ductal [...] from posterior Lymph nodes Number examined: 0 [place] nodes: 0 Axillary nodes: 0 CONTINUED ON NEXT PAGE ----- ------- Name: CastFannieAzra Age/Sex: 49/F : 1975 Unit#: [id number] Attend Dr: Aaron Pringle MD Re06/28/25 Status: [facility] Location: [facility] Disch: ----- ------- SPEC : [id number] RECD: 06/28/25 STATUS: CRAIG ANDERSEN NUM: [id number] MAYA: 06/28/25-[address] [facility] [address]: Aaron Pringle MD ENTERED: 06/28/25-1111 SP TYPE: Surgical OTHR DR: Shereen Latham MD ORDERED: Gross Micro L5, ER, FL, IOC, IHC, Add. immunos, IHC ER/FL/Her2N/4, Ki-67, p63, SMM, [id number] Diagnosis (Continued) Number involved: N/A With macrometastases: N/A With micrometastases: N/A With isolated tumor cells: N/A Extranodal extension: N/A Size of largest met. deposit: N/A Treatment effect Breast: Not identified Lymph nodes: Not identified TNM: pT1b NX Ancillary studies: ER positive, FL positive, HER2 negative (0), low proliferation Clinical [...] Azra Cast Age/Sex: 49/F : 1975 Unit#: [id number] Attend Dr: Aaron Pringle MD Re06/28/25 Status: [facility] Location: [facility] Disch: ----- ------- SPEC : [id number] RECD: 06/28/25-8 STATUS: CRAIG ANDERSEN NUM: [id number] MAYA: 06/28/25-[address] [facility] [address]: Aaron Pringle MD ENTERED: 06/28/25-1110 SP TYPE: Surgical OTHR DR: Shereen Latham MD ORDERED: Gross Micro L5, ER, FL, IOC, IHC, Add. immunos, IHC ER/FL/Her2N/4, Ki-67, p63, SMM, [id number] Gross Description (Continued) fatty parenchyma is otherwise unremarkable without additional discrete abnormality. Coil Machine Supervisor sections to include entire area of ill-defined [...] Envision+ Dual Link System-HRP. Progesterone receptor: Clone WnM013; Tagrule Mach 4 detection system. Her-2/perez immunohistochemistry performed in accordance with ASCO/CAP recommendations (2007) and update (2013). Hercep Test Detection system: Polymer type Scoring criteria: For ER/FL and Her-2/perez: All internal (if present) and external controls react appropriately. CONTINUED ON NEXT PAGE ----- ------- Name: Azra Cast Age/Sex: 49/F : 1975 Unit#: [id number] Attend Dr: Aaron Pringle MD Re06/28/25 Status: [facility] Location: [facility] Disch: ----- ------- SPEC : [id number] RECD: 06/28/25-1108 STATUS: CRAIG ANDERSEN NUM: [id number] MAYA: 06/28/25-[address]: Aaron Pringle MD ENTERED: 06/28/25-1110 SP TYPE: Surgical OTHR DR: Shereen Latham MD ORDERED: Gross Micro L5, ER, FL, IOC, IHC, Add. immunos, IHC ER/FL/Her2N/4, Ki-67, p63, SMM, [id number] Gross Description (Continued) ER and FL immunostains are scored as Positive (> 10% [...] or greater is positive. Vernon VILLEDA, Margot VASQUEZ, et al. Human Epidermal Growth Factor Receptor 2 Testing in Breast Cancer: ASCO/CAP Clinical Practice Guideline Focus Update. Arch of Pathol Lab Med, 142 2018: 5829-6260. Marce EDMONDS, Margot VASQUEZ, et al. Estrogen and Progesterone Receptor Testing in Breast Cancer: ASCO/CAP Guideline Update. Arch of Pathol Lab Med, 144 2020: 545-563. Thanh N, Cristel P, et al. Adjuvant abemaciclib combined with endocrine therapy for high- risk early breast cancer: updated efficacy and Ki-67 analysis from the monarchE study. Jennie Oncol. 2020;32(12):7301-8754. This case was reviewed intradepartmentally; results were communicated to Dr. Pringle on 07/05/2025. Special studies ordered and performed: Immunostains for ER, FL, HER2, Ki 67, p63 and smooth muscle myosin IHC S/NG Disclaimer NOTE: Unless otherwise stated, all tissue is formalin-fixed and paraffin-embedded. Some or all of the immunohistochemical tests reported herein may have been developed and their performance characteristics determined by [facility]. They have not been cleared [...] Name: Azra Cast Age/Sex: 49/F : 1975 [id number]#: [id number] Attend Dr: Aaron Pringle MD Re06/28/25 Status: [facility] Location: [facility] Disch: ----- ------- SPEC : [id number] RECD: 06/28/25-1108 STATUS: CRAIG ANDERSEN NUM: [id number] MAYA: 06/28/25-[address] [facility] [address]: Aaron Pringle MD ENTERED: 06/28/25-1111 SP TYPE: Surgical OTHR DR: Shereen Latham MD ORDERED: Gross Micro L5, ER, FL, IOC, IHC, Add. immunos, IHC ER/FL/Her2N/4, Ki-67, p63, SMM, [id number] Copies To: Shereen Latham MD [facility] [address] [place] [address] Aaron Pringle MD [facility] General Surgeons [address] [place], [place] [phone] ----- ------- Signed (signature on file) Beck Whatley MD 07/05/25 1423 ----- ------- END OF REPORT us Generic External Data Provider LAB BLOOD ORDERAB LES Final Result [facility] [address] [place] [phone] * BI MM SURGICAL SPECIMEN (06/28/2025 10:13 AM EDT) Anatomical Region Laterality Modality Breast Bilateral Mammography 06/28/2025 10:1 3 AM EDT Narrative 06/28/2025 11:09 AM EDT [address] [address] [id number] Mammography Report Signed Patient: Azra Cast MR#: [id number] : 1975 Acct:[id number] Age/Sex: 49 / F ADM Date: 06/28/25 Loc: [facility] Attending Dr: Aaron Pringle MD Ordering Physician: Aaron Pringle MD Results: Date of Service: 06/28/25 Follow Up: Procedure(s): MM surgical specimen Accession Number(s): [id number] cc: Shereen Latham MD; Aaron Pringle MD Single left breast specimen radiograph demonstrates a tag with the barbell clip and a second tag with a top hat clip. Electronically signed by: Cara Rodriges DO 06/28/2025 11:07 AM EDT RP Dictated By: Cara Rodriges DO Signed By: <Electronically signed by Cara Rodriges DO in OV> 06/28/25 1107 DD/ 1013 TD/TT: 06/28/25 1104 Shake Sawyer: Procedure Note Donotuseinterpreter, Image - 06/28/2025 [place] [address] [id number] Mammography Report Signed Patient: Nicolas CastR#: [id number] : 1975Acct:[id number] Age/Sex: 49 / FADM Date: 06/28/25 Loc: SONA Attending Dr: Aaron Pringle MD Ordering Physician: Aaron Pringleesults: Date of Service: 06/28/25Follow Up: Procedure(s): MM surgical specimen Accession Number(s): [id number] cc: Shereen Latham MD; Aaron Pringle MD Single left breast specimen radiograph demonstrates a tag with the barbell clip and a second tag with a top hat clip. Electronically signed by: Cara Rodriges DO 06/28/2025 11:07 AM EDT RP Dictated By: Cara Rodriges DO Signed By: <Electronically signed by Cara Rodriges DO in OV> 06/28/25 1107 DD/ 1013 TD/TT: 06/28/25 1104 Shake Sawyer: [facility] External Provider IMG BI PROCEDURES Edited Result - Final * High Sensitivity Troponin I (06/14/2025 5:50 PM EDT) TROPONIN I HIGH SENSITIVITY 12.4 <3.5 - 17.0 ng/L [facility] Comment:The Orellana high sens itivity Troponin-I results should beused in conjunction with other diagnostic information suchas ECG, clinical observations and information, and patientsymptoms to aid in the diagnosis of [place]. 06/14/2025 5:50 PM EDT 06/14/2025 5:54 PM EDT Generic External Data Provider LAB BLOOD ORDERAB LES Final Result Performing Organization Address City/State/[facility] Co de Phone Number [facility] [address] [place] [phone] * XR Chest 1 View (06/14/2025 12:37 PM EDT) Anatomical Region Laterality Modality Chest Radiographic Celina ging 06/14/2025 12:3 7 PM EDT Narrative 06/14/2025 1:54 PM EDT [address] [address] XRay Report Signed Patient: Azra Cast MR#: [id number] : 1975 Acct:[id number] Age/Sex: 49 / F ADM Date: 06/14/25 Loc: HO.ED Attending Dr: Ordering Physician: Corrina Badillo PA-C Date of Service: 06/14/25 Procedure(s): XR chest 1V Accession Number(s): [id number] cc: Shereen Latham MD; Corrina Badillo PA-C EXAMINATION: XR CHEST 1 VIEW HISTORY: sob COMPARISON: Comparison is made with the prior examination dated 12/10/2024. FINDINGS: A single AP portable view of the chest performed at 1:37 PM is submitted. The lungs are expanded and clear. There is no pleural effusion, pneumothorax, or pulmonary vascular congestion. The heart is normal in size. The bones are intact. XR/XR chest 1V IMPRESSION: No acute cardiopulmonary abnormality. Electronically signed by: Pete Price MD 06/14/2025 01:51 PM EDT RP Dictated By: Pete Price MD Signed By: <Electronically signed by Pete Price MD in OV> 06/14/25 1351 DD/ 1237 TD/TT: 06/14/25 1348 Shake Sawyer: Procedure Note Donotuseinterpreter, Image - 06/14/[address] [address] XRay Report Signed Patient: Maged Cast#: [id number] : 1975Acct:[id number] Age/Sex: 49 / FADM Date: 06/14/25 Loc: .ED Attending Dr: Ordering Physician: Corrina Badillo PA-C Date of Service: 06/14/25 Procedure(s): XR chest 1V Accession Number(s): [id number] cc: Shereen Latham MD; Corrina Badillo PA-C EXAMINATION: XR CHEST 1 VIEW HISTORY: sob COMPARISON: Comparison is made with the prior examination dated 12/10/2024. FINDINGS: A single AP portable view of the chest performed at 1:37 PM is submitted. The lungs are expanded and clear. There is no pleural effusion, pneumothorax, or pulmonary vascular congestion. The heart is normal in size. The bones are intact. XR/XR chest 1V IMPRESSION: No acute cardiopulmonary abnormality. Electronically signed by: Pete Price MD 06/14/2025 01:51 PM EDT RP Dictated By: Pete Price MD Signed By: <Electronically signed by Pete Price MD in OV> 06/14/25 1351 DD/ 1237 TD/TT: 06/14/25 1348 Shake Sawyer: [facility] External Provider IMG XR PROCEDURES Final Result * ECG 12 lead (06/14/2025 12:22 PM EDT) Narrative Junie Damon MD - 06/14/2025 12:22 PM EDT Sinus tachycardia Qtc [address] segment changes Junie Upton MD ECG ORDERABLES Final Result * POCT Rapid Influenza A ORELLANA ID NOW (06/14/2025 12:00 PM EDT) Only the most recent of2 resultswithin the time period is included. Influenza A Negative Negative, Indeterminate [facility] QC Media Lot # [id number] [facility] Lot# Expiration Date [facility] Swab 06/14/2025 12:0 0 PM EDT Junie Upton MD POINT OF CARE TEST EN TER/EDIT ORDERABLES Final Result Performing Organization Address [facility] Co de Phone Number [facility] [address] [place] [phone] * POCT Rapid Influenza B ORELLANA ID NOW (06/14/2025 11:57 AM EDT) Only the most recent of2 resultswithin the time period is included. Influenza B Negative Negative, Indeterminate [facility] QC Media Lot # [id number] [facility] Lot# Expiration Date [facility] Swab 06/14/2025 11:5 7 AM EDT Junie Upton MD POINT OF CARE TEST EN TER/EDIT ORDERABLES Final Result Performing Organization Address City/[facility] Co de Phone Number [facility] [address] [place] [phone] * POCT Rapid Covid-19 BinaxNOW (06/14/2025 11:53 AM EDT) Only the most recent of2 resultswithin the time period is included. Rapid COVID Ag Negative QC Media Lot # [id number] Lot# Expiration Date 822,026 Swab 06/14/2025 11:5 3 AM EDT Junie Upton MD POINT OF CARE TEST EN TER/EDIT ORDERABLES Final Result * MM RF Tag Device Add (06/14/2025 10:00 AM EDT) Anatomical Region Laterality Modality Breast Left Mammography 06/14/2025 10:0 0 AM EDT Narrative 06/14/2025 11:42 AM EDT [facility]'[address] 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 One site of biopsy which had benign pathology. COMPARISON: Priors on PACS. TECHNIQUE NEEDLE LOC: Proper informed consent is obtained from the patient after discussion of the procedure, potential risks and complications, and alternatives including declining the procedure today. Patient was given an opportunity for questions. The patient appeared to understand. The patient consented to the procedure and signed the consent form. GUIDANCE: Digital mammography. Site 1 Barbell clip: Atypical ductal hyperplasia APPROACH: Lateral. TARGET: Barbell clip. ANESTHESIA: carbonated lidocaine 1%: . LOCALIZATION SYSTEM: -Hologic LOCallizer Wire-Free Guidance System with 12g needle applicator. -Length: 7 cm. -RADIOFREQUENCY TAG: ID # [id number] Site 2 top hat clip : Atypical ductal hyperplasia APPROACH: Lateral. TARGET: Top hat clip. ANESTHESIA: carbonated lidocaine . LOCALIZATION SYSTEM: -Apture LOCallizer Wire-Free Guidance System with 12g needle applicator. -Length: 7 cm. -RADIOFREQUENCY TAG: ID # [id number] RF Tag ID confirmed with LOCalizer Guidance System prior to placement. The skin is prepped and local anesthesia administered. The needle is positioned and RFID tag deployed. Final images demonstrate the LOCalizer RF tags to reside adjacent to the marker clips The patient tolerated the procedure well and had no immediate complications. Dressing placed and home instructions reviewed. MM/MM RF Tag device add IMPRESSION: -Status post left breast RFID localization at two sites. Electronically signed by: Cara Rodriges DO 06/14/2025 11:39 AM EDT Dictated By: Cara Rodriges DO Signed By: <Electronically signed by Cara Rodriges DO in OV> 06/14/25 1139 DD/ 1000 TD/TT: 06/14/25 1100 Shake Sawyer: Procedure Note Donotuseinterpreter, Image - 06/14/2025 [facility] [address] 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 One site of biopsy which had benign pathology. COMPARISON: Priors on PACS. TECHNIQUE NEEDLE LOC: Proper informed consent is obtained from the patient after discussion of the procedure, potential risks and complications, and alternatives including declining the procedure today. Patient was given an opportunity for questions. The patient appeared to understand. The patient consented to the procedure and signed the consent form. GUIDANCE: Digital mammography. Site 1 Barbell clip: Atypical ductal hyperplasia APPROACH: Lateral. TARGET: Barbell clip. ANESTHESIA: carbonated lidocaine 1%: . LOCALIZATION SYSTEM: -Apture LOCallizer Wire-Free Guidance System with 12g needle applicator. -Length: 7 cm. -RADIOFREQUENCY TAG: ID # [id number] Site 2 top hat clip : Atypical ductal hyperplasia APPROACH: Lateral. TARGET: Top hat clip. ANESTHESIA: carbonated lidocaine . LOCALIZATION SYSTEM: -Apture LOCallizer Wire-Free Guidance System with 12g needle applicator. -Length: 7 cm. -RADIOFREQUENCY TAG: ID # [id number] RF Tag ID confirmed with LOCalizer Guidance System prior to placement. The skin is prepped and local anesthesia administered. The needle is positioned and RFID tag deployed. Final images demonstrate the LOCalizer RF tags to reside adjacent to the marker clips The patient tolerated the procedure well and had no immediate complications. Dressing placed and home instructions reviewed. MM/MM RF Tag device add IMPRESSION: -Status post left breast RFID localization at two sites. Electronically signed by: Cara Rodriges DO 06/14/2025 11:39 AM EDT Dictated By: Cara Rodriges DO Signed By: <Electronically signed by Cara Rodriges DO in OV> 06/14/25 1139 DD/ 1000 TD/TT: 06/14/25 1100 Shake Sawyer: [facility] External Provider IMG BI PROCEDURES Final Result * MM RF Tag Device Left (06/14/2025 10:00 AM EDT) Anatomical Region Laterality Modality Breast Left Mammography 06/14/2025 10:0 0 AM EDT Narrative 06/14/2025 11:42 AM EDT [address] 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 One site of biopsy which had benign pathology. COMPARISON: Priors on PACS. TECHNIQUE NEEDLE LOC: Proper informed consent is obtained from the patient after discussion of the procedure, potential risks and complications, and alternatives including declining the procedure today. Patient was given an opportunity for questions. The patient appeared to understand. The patient consented to the procedure and signed the consent form. GUIDANCE: Digital mammography. Site 1 Barbell clip: Atypical ductal hyperplasia APPROACH: Lateral. TARGET: Barbell clip. ANESTHESIA: carbonated lidocaine 1%: . LOCALIZATION SYSTEM: -Apture LOCallizer Wire-Free Guidance System with 12g needle applicator. -Length: 7 cm. -RADIOFREQUENCY TAG: ID # [id number] Site 2 top hat clip : Atypical ductal hyperplasia APPROACH: Lateral. TARGET: Top hat clip. ANESTHESIA: carbonated lidocaine . LOCALIZATION SYSTEM: -[employer] LOCallizer Wire-Free Guidance System with 12g needle applicator. -Length: 7 cm. -RADIOFREQUENCY TAG: ID # [id number] RF Tag ID confirmed with LOCalizer Guidance System prior to placement. The skin is prepped and local anesthesia administered. The needle is positioned and RFID tag deployed. Final images demonstrate the LOCalizer RF tags to reside adjacent to the marker clips The patient tolerated the procedure well and had no immediate complications. Dressing placed and home instructions reviewed. MM/MM RF Tag device LT IMPRESSION: -Status post left breast RFID localization at two sites. Electronically signed by: Cara Rodriges DO 06/14/2025 11:39 AM EDT Dictated By: Cara Rodriges DO Signed By: <Electronically signed by Cara Rodriges DO in OV> 06/14/25 1139 DD/ 1000 TD/TT: 06/14/25 1100 Shake Sawyer: Procedure Note Donotmalouinterpreter, Image - 06/14/20[facility] [address] 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 One site of biopsy which had benign pathology. COMPARISON: Priors on PACS. TECHNIQUE NEEDLE LOC: Proper informed consent is obtained from the patient after discussion of the procedure, potential risks and complications, and alternatives including declining the procedure today. Patient was given an opportunity for questions. The patient appeared to understand. The patient consented to the procedure and signed the consent form. GUIDANCE: Digital mammography. Site 1 Barbell clip: Atypical ductal hyperplasia APPROACH: Lateral. TARGET: Barbell clip. ANESTHESIA: carbonated lidocaine 1%: . LOCALIZATION SYSTEM: -Apture LOCallizer Wire-Free Guidance System with 12g needle applicator. -Length: 7 cm. -RADIOFREQUENCY TAG: ID # [id number] Site 2 top hat clip : Atypical ductal hyperplasia APPROACH: Lateral. TARGET: Top hat clip. ANESTHESIA: carbonated lidocaine . LOCALIZATION SYSTEM: -[employer] LOCallizer Wire-Free Guidance System with 12g needle applicator. -Length: 7 cm. -RADIOFREQUENCY TAG: ID # [id number] RF Tag ID confirmed with LOCalizer Guidance System prior to placement. The skin is prepped and local anesthesia administered. The needle is positioned and RFID tag deployed. Final images demonstrate the LOCalizer RF tags to reside adjacent to the marker clips The patient tolerated the procedure well and had no immediate complications. Dressing placed and home instructions reviewed. MM/MM RF Tag device LT IMPRESSION: -Status post left breast RFID localization at two sites. Electronically signed by: Cara Rodriges DO 06/14/2025 11:39 AM EDT RP Dictated By: Cara Rodriges DO Signed By: <Electronically signed by Cara Rodriges DO in OV> 06/14/25 1139 DD/ 1000 TD/TT: 06/14/25 1100 Shake Sawyer: [facility] External Provider IMG BI PROCEDURES Final Result * BI Mammogram Diagnostic Tomosynthesis Left (06/01/2025 11:25 AM EDT) Only the most recent of2 resultswithin the time period is included. Anatomical Region Laterality Modality Breast Left Mammography 06/01/2025 11:2 5 AM EDT Narrative 06/01/2025 1:24 PM EDT [address] [id number] Mammography Report Signed with Kaylie Patient: Azra Cast MR#: [id number] : 1975 Acct:[id number] Age/Sex: 49 / F ADM Date: 06/01/25 Loc: .MRI Attending Dr: Aaron Pringle MD Ordering Physician: Aaron Pringle MD Results: 1Nega tive Date of Service: 06/01/25 Follow Up: 1 Year From Orig inal Mammogram Procedure(s): MM tomosynthesis diagnostic LT Accession Number(s): [id number] cc: Shereen Latham MD; Aaron Pringle MD ADDENDUM ADDENDUM #1 ADDENDUM: MRI guided left breast biopsy: Breast tissue with 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 Results are benign and concordant. Recommend breast surgical consultation for excision of 2 sites of known atypical ductal hyperplasia in the left breast from previous needle core biopsies. Electronically signed by: Cara Rodriges DO 06/07/2025 12:32 PM EDT RP Addendum Dictated By: Cara Rodriges DO Addendum Signed By: <Electronically signed by Cara Rodriges DO in OV> 06/07/25 1232 Addendum Cosigned By: DD/ TD/TT: 06/01/25 EXAMINATION: MR GUIDED VACUUM-ASSISTED CORE BIOPSY BREAST, LEFT MM DIGITAL MAMMOGRAPHY POST BIOPSY, LEFT CLINICAL INFORMATION: History of prior right breast cancer status post mastectomy with implant. 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 An additional enhancing mass in the left breast here for MRI guided core needle biopsy.. COMPARISON: Available priors on PACS. TECHNIQUE/PROCEDURE: Informed consent was obtained from the patient after discussion of the benefits, risks, and alternatives to biopsy today. Patient appeared to understand. Gave opportunity for questions. Patient signed consent form. Biopsy is performed under MRI guidance using breast surface coil. Imaging is performed without and with use of Gadavist gadolinium contrast. [employer] introducer localization system is used with grid. LESION: Retroareolar region middle depth. LOCAL ANESTHESIA: 6 mL 1% lidocaine; 10 mL 1% lidocaine with epinephrine. NEEDLE: [employer] 9-gauge vacuum assisted core biopsy device. APPROACH: Lateral. CORES: 12. CLIP: TriMark cylinder shaped. POSTPROCEDURE UNILATERAL DIGITAL MAMMOGRAM: Mammography is performed using digital mammography in CC and MLO views. There are scattered areas of fibroglandular density (ACR BI-RADS breast composition Category b). The clip marker is in position. No gross hematoma. The patient tolerated the procedure well. No immediate complications. Home instructions reviewed with the patient. Final pathology results are pending. MM/MM tomosynthesis diagnostic LT IMPRESSION: 1. Status post MRI guided vacuum-assisted core biopsy left breast with clip placement. 2. Final pathology results pending. An addendum report will be issued. Electronically signed by: Cara Rodriges DO 06/01/2025 01:21 PM EDT RP Dictated By: Cara Rodriges DO Signed By: <Electronically signed by Cara Rodriges DO in OV> 06/01/25 1321 DD/ 24 TD/TT: 06/01/25 115 Shake Sawyer: Procedure Note Donotmalouinterpreter, Image - 06/07/[address] [address] [id number] Mammography Report Signed with Addenda Patient: Maged Cast#: [id number] : 1975Acct:[id number] Age/Sex: 49 / FADM Date: 06/01/25 Loc: HO.MRI Attending Dr: Aaron Pringle MD Ordering Physician: Aaron Pringleesults: 1Nega tive Date of Service: 06/01/25Follow Up: 1 Year From Orig inal Mammogram Procedure(s): MM tomosynthesis diagnostic LT Accession Number(s): [id number] cc: Shereen Latham MD; Aaron Pringle MD ADDENDUM ADDENDUM #1 ADDENDUM: MRI guided left breast biopsy: Breast tissue with 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 Results are benign and concordant. Recommend breast surgical consultation for excision of 2 sites of known atypical ductal hyperplasia in the left breast from previous needle core biopsies. Electronically signed by: Cara Rodriges DO 06/07/2025 12:32 PM EDT Addendum Dictated By: Cara Rodriges DO Addendum Signed By: <Electronically signed by DO Conrado in OV> 06/07/25 1232 Addendum Cosigned By: DD/ TD/TT: 06/01/25 EXAMINATION: MR GUIDED VACUUM-ASSISTED CORE BIOPSY BREAST, LEFT MM DIGITAL MAMMOGRAPHY POST BIOPSY, LEFT CLINICAL INFORMATION: History of prior right breast cancer status post mastectomy with implant. 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 An additional enhancing mass in the left breast here for MRI guided core needle biopsy.. COMPARISON: Available priors on PACS. TECHNIQUE/PROCEDURE: Informed consent was obtained from the patient after discussion of the benefits, risks, and alternatives to biopsy today. Patient appeared to understand. Gave opportunity for questions. Patient signed consent form. Biopsy is performed under MRI guidance using breast surface coil. Imaging is performed without and with use of Gadavist gadolinium contrast. [employer] introducer localization system is used with grid. LESION: Retroareolar region middle depth. LOCAL ANESTHESIA: 6 mL 1% lidocaine; 10 mL 1% lidocaine with epinephrine. NEEDLE: [employer] 9-gauge vacuum assisted core biopsy device. APPROACH: Lateral. CORES: 12. CLIP: TriMark cylinder shaped. POSTPROCEDURE UNILATERAL DIGITAL MAMMOGRAM: Mammography is performed using digital mammography in CC and MLO views. There are scattered areas of fibroglandular density (ACR BI-RADS breast composition Category b). The clip marker is in position. No gross hematoma. The patient tolerated the procedure well. No immediate complications. Home instructions reviewed with the patient. Final pathology results are pending. MM/MM tomosynthesis diagnostic LT IMPRESSION: 1. Status post MRI guided vacuum-assisted core biopsy left breast with clip placement. 2. Final pathology results pending. An addendum report will be issued. Electronically signed by: Cara Rodriges DO 06/01/2025 01:21 PM EDT Dictated By: Cara Rodriges DO Signed By: <Electronically signed by Cara Rodriges DO in OV> 06/01/25 1321 DD/ 1125 TD/TT: 06/01/25 1150 Shake Sawyer: [facility] External Provider IMG BI PROCEDURES Edited Result - Final * Hematoxylin and Eosin Stain (06/01/2025 10:53 AM EDT) Only the most recent of2 resultswithin the time period is included. 06/01/2025 10:5 3 AM EDT 06/01/2025 11:23 AM EDT [facility] - 06/02/2025 3:10 PM EDT ----- ------- Name: Azra Cast Age/Sex: 49/F : 1975 Unit#: [id number] Attend Dr: Aaron Pringle MD Re06/01/25 Status: DEP REF Location: .MRI Disch: ----- ------- SPEC : [id number] RECD: 06/01/25 STATUS: CRAIG GONZALEZRitu NUM: [id number] MAYA: 06/01/[address] [facility] [address]: Aaron Pringle MD ENTERED: 06/01/25 SP TYPE: Surgical OTHR DR: Shereen Latham MD ORDERED: HE Stain/2, Gross Micro L4 COMMENTS: As per the specimen requisition slip the specimen is collected at 1053 and placed in formalin at 1100. 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 Clinical History Mass Microscopic Description Microscopic sections reviewed. Material Received Left breast tissue Gross Description Received in formalin labeled left breast tissue are multiple irregular shards and cylindrical threads of salmeron-yellow and lara-pink lobular fibrofatty breast tissue and red- maroon clotted blood ranging from 0.2-2.8 cm and aggregating 3.0 x 2.0 x 0.45 cm, submitted in toto in cassettes A1 and A2. CEDS This case was reviewed intradepartmentally. IHC S/NG Disclaimer NOTE: Unless otherwise stated, all tissue is formalin-fixed and paraffin-embedded. Some or all of the immunohistochemical tests reported herein may have been developed and their performance characteristics determined by [facility]. They have not been cleared or approved by the U.S. Food and Drug Administration (FDA). However, the FDA has determined that such clearance or approval is not necessary. This laboratory is certified under the Clinical Laboratory Improvement Amendments of 1988 (CLIA) as qualified to perform high complexity clinical laboratory testing. Copies To: Shereen Latham MD [address] [address] CONTINUED ON NEXT PAGE ----- ------- Name: CastAzra Age/Sex: 49/F : 1975 Unit#: [id number] Attend Dr: Aaron Pringle MD Re06/01/25 Status: DEP REF Location: .MRI Disch: ----- ------- SPEC : [id number] RECD: 06/01/25 STATUS: CRAIG ANDERSEN NUM: [id number] MAYA: 06/01/[address] [facility] DR: Aaron Pringle MD ENTERED: 06/01/25 SP TYPE: Surgical OTHR DR: Shereen Latham MD ORDERED: HE Stain/2, Gross Micro L4 COMMENTS: As per the specimen requisition slip the specimen is collected at 1053 and placed in formalin at 1100. Copies To: (Continued) Aaron Pringle MD [facility] [place] General Surgeons [address] [place] [phone] ----- ------- Signed (signature on file) Beck Whatley MD 06/02/25 1510 ----- ------- END OF REPORT us Generic External Data Provider LAB BLOOD ORDERAB LES Final Result [facility] [address] [place] [phone] * BI MR Guided Breast Biopsy Left (06/01/2025 9:04 AM EDT) Only the most recent of2 resultswithin the time period is included. 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 Results are benign and concordant. Recommend breast surgical consultation for excision of 2 sites of known atypical ductal hyperplasia in the left breast from previous needle core biopsies. Electronically signed by: Cara Rodriges DO 06/07/2025 12:32 PM EDT RP Addendum Dictated By: Cara Rodriges DO Addendum Signed By: <Electronically signed by Cara Rodriges DO in OV> 06/07/25 1232 Addendum Cosigned By: DD/ TD/TT: 06/01/25 EXAMINATION: MR GUIDED VACUUM-ASSISTED CORE BIOPSY BREAST, LEFT MM DIGITAL MAMMOGRAPHY POST BIOPSY, LEFT CLINICAL INFORMATION: History of prior right breast cancer status post mastectomy with implant. 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 An additional enhancing mass in the left breast here for MRI guided core needle biopsy.. COMPARISON: Available priors on PACS. TECHNIQUE/PROCEDURE: Informed consent was obtained from the patient after discussion of the benefits, risks, and alternatives to biopsy today. Patient appeared to understand. Gave opportunity for questions. Patient signed consent form. Biopsy is performed under MRI guidance using breast surface coil. Imaging is performed without and with use of Gadavist gadolinium contrast. [employer] introducer localization system is used with grid. LESION: Retroareolar region middle depth. LOCAL ANESTHESIA: 6 mL 1% lidocaine; 10 mL 1% lidocaine with epinephrine. NEEDLE: [employer] 9-gauge vacuum assisted core biopsy device. APPROACH: Lateral. CORES: 12. CLIP: TriMark cylinder shaped. POSTPROCEDURE UNILATERAL DIGITAL MAMMOGRAM: Mammography is performed using digital mammography in CC and MLO views. There are scattered areas of fibroglandular density (ACR BI-RADS breast composition Category b). The clip marker is in position. No gross hematoma. The patient tolerated the procedure well. No immediate complications. Home instructions reviewed with the patient. Final pathology results are pending. MR/MR guided breast biopsy LT IMPRESSION: 1. Status post MRI guided vacuum-assisted core biopsy left breast with clip placement. 2. Final pathology results pending. An addendum report will be issued. Electronically signed by: Cara Rodriges DO 06/01/2025 01:21 PM EDT Dictated By: Cara Rodriges DO Signed By: <Electronically signed by Cara Rodriges DO in OV> 06/01/25 1321 DD/ 0904 TD/TT: 06/01/25 1100 Shake Sawyer: Procedure Note Donotuseinterpreter, Image - 06/07/2025 [place] [address] Magnetic Resonance Report Signed with Addenda Patient: Maged Cast#: [id number] : 1975Acct:[id number] Age/Sex: 49 / FADM Date: 06/01/25 Loc: .MRI Attending Dr: Aaron Pringle MD Ordering Physician: Aaron Pringle MD Date of Service: 06/01/25 Procedure(s): MR guided breast biopsy LT Accession Number(s): [id number] cc: Shereen Latham MD; Aaron Pringle MD ADDENDUM ADDENDUM #1 ADDENDUM: MRI guided left breast biopsy: Breast tissue with 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 Results are benign and concordant. Recommend breast surgical consultation for excision of 2 sites of known atypical ductal hyperplasia in the left breast from previous needle core biopsies. Electronically signed by: Cara Rodriges DO 06/07/2025 12:32 PM EDT RP Addendum Dictated By: Cara Rodriges DO Addendum Signed By: <Electronically signed by DO Conrado in OV> 06/07/25 1232 Addendum Cosigned By: DD/ TD/TT: 06/01/25 EXAMINATION: MR GUIDED VACUUM-ASSISTED CORE BIOPSY BREAST, LEFT MM DIGITAL MAMMOGRAPHY POST BIOPSY, LEFT CLINICAL INFORMATION: History of prior right breast cancer status post mastectomy with implant. 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 An additional enhancing mass in the left breast here for MRI guided core needle biopsy.. COMPARISON: Available priors on PACS. TECHNIQUE/PROCEDURE: Informed consent was obtained from the patient after discussion of the benefits, risks, and alternatives to biopsy today. Patient appeared to understand. Gave opportunity for questions. Patient signed consent form. Biopsy is performed under MRI guidance using breast surface coil. Imaging is performed without and with use of Gadavist gadolinium contrast. [employer] introducer localization system is used with grid. LESION: Retroareolar region middle depth. LOCAL ANESTHESIA: 6 mL 1% lidocaine; 10 mL 1% lidocaine with epinephrine. NEEDLE: [employer] 9-gauge vacuum assisted core biopsy device. APPROACH: Lateral. CORES: 12. CLIP: TriMark cylinder shaped. POSTPROCEDURE UNILATERAL DIGITAL MAMMOGRAM: Mammography is performed using digital mammography in CC and MLO views. There are scattered areas of fibroglandular density (ACR BI-RADS breast composition Category b). The clip marker is in position. No gross hematoma. The patient tolerated the procedure well. No immediate complications. Home instructions reviewed with the patient. Final pathology results are pending. MR/MR guided breast biopsy LT IMPRESSION: 1. Status post MRI guided vacuum-assisted core biopsy left breast with clip placement. 2. Final pathology results pending. An addendum report will be issued. Electronically signed by: Cara Rodriges DO 06/01/2025 01:21 PM EDT Dictated By: Cara Rodriges DO Signed By: <Electronically signed by Cara Rodriges DO in OV> 06/01/25 1321 DD/ 3 TD/TT: 06/01/251099 Shake Sawyer: [facility] External Provider IMG MRI PROCEDURES Edited Result - Final * Vitamin D, 25-Hydroxy, Total, Immunoassay (05/15/2025 1:46 PM EDT) Vitamin D 25-OH Total 79.4 >30 ng/mL [facility] Comment: Health Based Reference Values*< 20 ng/mL Arsfxbubs01-10 ng/mL Insufficient> 30 ng/mL Sufficient*Candi INGRAM. N Engl J Med. 2007;357:266-280There is no well-established upper level of normal vitamin Dlevels. Some laboratories use 50 ng/mL as an upper limit ofnormal. However, toxicity is patient-dependent and may occurat any level. Careful correlation with the patient'spresentation is necessary and, if there is concern forvitamin D toxicity, treatment should be consideredirrespective of the serum level.Care must be taken in interpreting Vitamin D results fromdifferent laboratories and methodologies. Published datademonstrated that results from patients undergoinghemodialysis may show a negative bias when tested withvarious automated 25-OH vitamin D assays when compared toLC-MS/MS.When testing samples from patients whose predominant form ofVitamin D is Vitamin D2, such as patients receiving VitaminD2 supplementation, results that are subtherapeutic shouldbe confirmed with another method such as LC-MS/MS. Blood Venous blood specimen / Unknown 05/15/2025 1:46 PM EDT 05/15/2025 4:50 PM EDT Shereen Latham MD LAB BLOOD ORDERABLES Final Result Performing Organization Address [facility]/State/ZIP Co de Phone Number [facility] [address] [place] [phone] * Magnesium (05/15/2025 1:46 PM EDT) Magnesium 1.6 1.6 - 2.6 mg/dL [facility] Blood Venous blood specimen / Unknown 05/15/2025 1:46 PM EDT 05/15/2025 4:50 PM EDT Shereen Latham MD LAB BLOOD ORDERABLES Final Result Performing Organization Address [facility]/ZIP Co de Phone Number [facility] [address] [place] [phone] * BI MR Breast w and w/o Contrast Bilateral (04/20/2025 12:20 PM EDT) Anatomical Region Laterality Modality Breast Bilateral Magnetic Resonan ce 04/20/2025 12:2 0 PM EDT Narrative 04/23/2025 9:47 PM EDT [place] [address] Magnetic Resonance Report Signed Patient: Azra Cast MR#: [id number] : 1975 Acct:[id number] Age/Sex: 49 / F ADM Date: 04/20/25 Loc: HO.MRI Attending Dr: Aaron Pringle MD Ordering Physician: Aaron Pringle MD Date of Service: 04/20/25 Procedure(s): MR breast BI wo/w con Accession Number(s): [id number] cc: Shereen Latham MD; Margaret Holman MEDIA LIBRARIAN-C; Li Grande MD; Aaron Pringle MD EXAMINATION: MR BREAST WITHOUT AND WITH CONTRAST, BILATERAL CLINICAL INFORMATION: Recent left breast stereotactic core needle biopsy with pathology of atypical ductal hyperplasia. COMPARISON: Priors on PACS. TECHNIQUE: MR imaging of the breast was performed using T1 and T2 and fat saturated techniques. Dynamic multiphase imaging was also performed before and after the administration of gadolinium contrast agent. Line 3-D reconstruction was used in the interpretation of this examination. FINDINGS: There is scattered fibroglandular breast tissue with moderate background enhancement. LEFT BREAST: 5 mm oval enhancing foci retroareolar region slightly lateral breast series 1043 image 62/134 5-6 mm oval enhancing mass in the lower outer breast middle to posterior depth series 1043 image 80/134. No other suspicious enhancing masses or areas of nonmass enhancement. No internal mammary or axillary adenopathy. RIGHT BREAST: Status post right mastectomy changes with implant augmentation. No suspicious enhancing masses or areas of nonmass enhancement. No internal mammary or axillary adenopathy. Limited views of the chest and abdomen are unremarkable. MR/MR breast BI wo/w con IMPRESSION: Right: Postmastectomy changes. Benign. Left: 1. 5 to 6 mm oval enhancing mass in the lower outer left breast given patient's history of right breast cancer and recent biopsy-proven left breast atypical ductal hyperplasia recommend MRI guided core needle biopsy at this time. 2. 5 mm oval enhancing foci retroareolar region slightly lateral breast management will be pending biopsy of the above mass to include six-month follow-up MRI for further evaluation of stability. 3. Recent biopsy-proven atypical ductal hyperplasia in the left breast. The patient is under the care of a breast surgeon for excision and further management. ASSESSMENT: LEFT BREAST: BI-RADS 4 suspicious. Recommend MRI guided core needle biopsy at this time. In addition there is another 5 mm foci for which management will be pending biopsy of the above mass to include six-month follow-up MRI for further evaluation of stability. RIGHT BREAST: BI-RADS 2 benign. RECOMMENDATIONS: Recommend MRI guided core needle biopsy of the left breast at this time. Recommend six-month follow-up MRI for further evaluation of stability of other enhancing foci in the left breast. Electronically signed by: Cara Rodriges DO 04/23/2025 09:45 PM EDT Dictated By: Cara Rodriges DO Signed By: <Electronically signed by Cara Rodriges DO in OV> 04/23/25 2145 DD/ 1220 TD/TT: 04/20/25 1400 Shake Sawyer: Procedure Note Donotuseinterpreter, Image - 04/23/2025 [place] [address] Magnetic Resonance Report Signed Patient: Maged Cast#: [id number] : 1975Acct:[id number] Age/Sex: 49 / FADM Date: 04/20/25 Loc: HO.MRI Attending Dr: Aaron Pringle MD Ordering Physician: Aaron Pringle MD Date of Service: 04/20/25 Procedure(s): MR breast BI wo/w con Accession Number(s): [id number] cc: Shereen Latham MD; Margaret Holman MEDIA LIBRARIAN-C; Li Grande MD;Aaron Pringle MD EXAMINATION: MR BREAST WITHOUT AND WITH CONTRAST, BILATERAL CLINICAL INFORMATION: Recent left breast stereotactic core needle biopsy with pathology of atypical ductal hyperplasia. COMPARISON: Priors on PACS. TECHNIQUE: MR imaging of the breast was performed using T1 and T2 and fat saturated techniques. Dynamic multiphase imaging was also performed before and after the administration of gadolinium contrast agent. Line 3-D reconstruction was used in the interpretation of this examination. FINDINGS: There is scattered fibroglandular breast tissue with moderate background enhancement. LEFT BREAST: 5 mm oval enhancing foci retroareolar region slightly lateral breast series 1043 image 62/134 5-6 mm oval enhancing mass in the lower outer breast middle to posterior depth series 1043 image 80/134. No other suspicious enhancing masses or areas of nonmass enhancement. No internal mammary or axillary adenopathy. RIGHT BREAST: Status post right mastectomy changes with implant augmentation. No suspicious enhancing masses or areas of nonmass enhancement. No internal mammary or axillary adenopathy. Limited views of the chest and abdomen are unremarkable. MR/MR breast BI wo/w con IMPRESSION: Right: Postmastectomy changes. Benign. Left: 1. 5 to 6 mm oval enhancing mass in the lower outer left breast given patient's history of right breast cancer and recent biopsy-proven left breast atypical ductal hyperplasia recommend MRI guided core needle biopsy at this time. 2. 5 mm oval enhancing foci retroareolar region slightly lateral breast management will be pending biopsy of the above mass to include six-month follow-up MRI for further evaluation of stability. 3. Recent biopsy-proven atypical ductal hyperplasia in the left breast. The patient is under the care of a breast surgeon for excision and further management. ASSESSMENT: LEFT BREAST: BI-RADS 4 suspicious. Recommend MRI guided core needle biopsy at this time. In addition there is another 5 mm foci for which management will be pending biopsy of the above mass to include six-month follow-up MRI for further evaluation of stability. RIGHT BREAST: BI-RADS 2 benign. RECOMMENDATIONS: Recommend MRI guided core needle biopsy of the left breast at this time. Recommend six-month follow-up MRI for further evaluation of stability of other enhancing foci in the left breast. Electronically signed by: Cara Rodriges DO 04/23/2025 09:45 PM EDT Dictated By: Cara Rodriges DO Signed By: <Electronically signed by Cara Rodriges DO in OV> 04/23/25 2145 DD/ 1220 TD/TT: 04/20/25 1400 Shake Sawyer: [facility] External Provider IMG MRI PROCEDURES Edited Result - Final * D Dimer High Sensitivity (04/19/2025 3:05 PM EDT) D Dimer High Sensitivity <150 NG/ML [facility] Comment:D-DIMER HS REFERENCE RANGENote: Our assay reports D-Dimer Units (D- DU).The cut-off value for venous thromboembolic (VTE) disease is230 ng/mL. This value has a very high negative predictivevalue when the patient has a low to moderate clinicalprobability of VTE.The upper limit of normal is 243 ng/mL. 04/19/2025 3:05 PM EDT 04/19/2025 3:05 PM EDT Generic External Data Provider LAB BLOOD ORDERAB LES Final Result Performing Organization Address [facility] de Phone Number [facility] [address] [place] [phone] * Sjogren's Antibodies (SS-A,SS-B) (04/19/2025 3:05 PM EDT) Sjogren's Antibody (SS-A) <1.0 NEG <1.0 NEG [facility] Sjogren's Antibody (SS-B) <1.0 NEG <1.0 NEG [facility] Comment:THIS TEST WAS PERFOR MED AT:[facility] [place] [phone] BRINK MD 04/19/2025 3:05 PM EDT 04/19/2025 3:05 PM EDT Generic External Data Provider LAB BLOOD ORDERAB LES Final Result Performing Organization Address [facility]/ZIP Co de Phone Number [facility] [address] [place] [phone] * Cyclic Citrullinated Peptide (CCP) Antibody (IgG) (04/19/2025 3:05 PM EDT) Pathologist [facility] Cyclic Citrullinated Peptide <16 UNITS [facility] Comment:Reference RangeNegat dasia: <20Weak Positive: 20-39Moderate Positive: 40-59Strong Positive: >59THIS TEST WAS PERFORMED AT:[facility] [address] [phone] BRINK MD 04/19/2025 3:05 PM EDT 04/19/2025 3:05 PM EDT us Generic External Data Provider LAB BLOOD ORDERAB LES Final Result Performing Organization Address [facility]/ZIP Co de Phone Number [facility] [address] [place] [phone] * SCL-70 Antibody (04/19/2025 3:05 PM EDT) Pathologist [facility] SCL-70 Antibody <1.0 NEG <1.0 NEG AI [facility] Comment:THIS TEST WAS PERFOR MED AT:[facility] [address] [phone] BRINK MD 04/19/2025 3:05 PM EDT 04/19/2025 3:05 PM EDT us Generic External Data Provider LAB BLOOD ORDERAB LES Final Result Performing Organization Address City/[facility]/ZIP Co de Phone Number [facility] [address] [place] [phone] * DNA (ds) Antibody (04/19/2025 3:05 PM EDT) Pathologist [facility] Anti DNA DS Antibody <1 IU/mL [facility] Comment:IU/mL Interpretation < or = 4 Negative 5-9 Indeterminate > or = 10 PositiveTHIS TEST WAS PERFORMED AT:[facility] [address] [id number] BRINK MD 04/19/2025 3:05 PM EDT 04/19/2025 3:05 PM EDT Generic External Data Provider LAB BLOOD ORDERAB LES Final Result Performing Organization Address [facility] Co de Phone Number [facility] [address] [place] [phone] * Rheumatoid Factor (04/19/2025 3:05 PM EDT) Rheumatoid Factor <13.0 <15.0 IU/mL [facility] 04/19/2025 3:05 PM EDT 04/19/2025 3:05 PM EDT Generic External Data Provider LAB BLOOD ORDERAB LES Final Result Performing Organization Address [facility] de Phone Number [facility] [address] [place] [phone] * (ABNORMAL) MONTY Screen,IFA, with Reflex to Titer and Pattern (04/19/2025 3:05 PM EDT) Pathologist [facility] Anti Nuclear Antibody Screen POSITIVE (A) NEGATIVE [facility] Comment:MONTY IFA is a first l ine screen for detecting thepresence of up to approximately 150 autoantibodies invarious autoimmune diseases. A positive MONTY IFA resultis suggestive of autoimmune disease and reflexes totiter and pattern. Further laboratory testing may beconsidered if clinically indicated.For additional information, please refer [email or web address]/faq/LWF216(This link is being provided for informational/educational purposes only.) MONTY Titer 1:80(A) titer [facility] Comment:A low level MONTY tite r may be present in pre-clinicalautoimmune diseases and normal individuals. Reference Range <1:40 Negative 1:40-1:80 Low Antibody Level >1:80 Elevated Antibody Level MONTY Pattern (A) [facility] Comment:Cytoplasmic, Fibrill ar Linear Abnormal Flag: AThis pattern is characterized by decorated cytoskeletalfibers, sometimes with small, discontinuous granulardeposits. Typical staining show striated actin cablesspanning the long axis of the cells (e.g., anti-actin,pcyt-ldc-wlrjfb myosin). Pattern is associated withmixed connective tissue disease (MCTD), chronic activehepatitis, liver cirrhosis, myasthenia gravis, Crohn'sdisease, primary biliary cholangitis (PBC), long-termhemodialysis, and rarely in systemic autoimmunerheumatic diseases (SARD).AC-15: Fibrillar LinearInternational Consensus on MONTY Patterns(https://doi.org/10.1515/cuhd-6111-2701)THIS TEST WAS PERFORMED AT:[facility] [place] [phone] BRINK MD MONTY TITER 2 (REF LAB) [facility] MONTY Pattern 2 [facility] MONTY TITER 3 [facility] MONTY PATTERN 3 [facility] 04/19/2025 3:05 PM EDT 04/19/2025 3:05 PM EDT us Generic External Data Provider LAB BLOOD ORDERAB LES Final Result Performing Organization Address [facility]/ZIP Co de Phone Number [facility] [address] [place] [phone] * Uric acid (04/19/2025 3:05 PM EDT) Uric Acid 5.4 2.4 - 5.7 mg/dL [facility] 04/19/2025 3:05 PM EDT 04/19/2025 3:05 PM EDT us Shereen Latham MD LAB BLOOD ORDERABLES Final Result Performing Organization Address [facility] Co de Phone Number [facility] [address] [place] [phone] * (ABNORMAL) Lipid Panel, Standard (12/29/2024 10:53 AM EST) Triglycerides 192(H) <150 mg/dL [facility] Comment:Desirable Triglyceri de: less than 150 mg/dLBorderline High Triglyceride 150-199 mg/dLHigh Triglyceride: 200-499 mg/dLVery High Triglyceride: greater than or equal to 5OO mg/dL Cholesterol 197 <200 mg/dL [facility] Comment:Desirable Cholestero l: less than 200 mg/dLBorderline High Cholesterol: 200-239 mg/dLHigh Cholesterol: greater than 239 mg/dL LDL Cholesterol Calculated 111(H) <100 mg/dL [facility] Comment:Desirable LDL: less than 100 mg/dLNear Optimal/Above Optimal LDL: 110- 129 mg/dLBorderline High LDL: 130-159 mg/dLHigh LDL: 160-189 mg/dLVery High LDL: greater than or equal to 190 mg/dL HDL Cholesterol 48 >40 mg/dL [facility] Comment:Desirable HDL: great er than 40 mg/dL Note: This HDL assay may give artificially low results in patients with liver disease. Blood Venous blood specimen / Unknown 12/29/2024 10:53 AM EST 12/29/2024 1:06 PM EST Shereen Latham MD LAB BLOOD ORDERABLES Final Result [facility] [address] [place] [phone] * (ABNORMAL) Colonoscopy (07/11/2024) Colonoscopy Abnormal( A) Normal Comment:Herberth Stokes MD tubular adenoma x 3 Herberth Stokes MD HEALTH MAINTENANCE Final Result * Hepatitis Panel, General (06/16/2024 8:22 AM EDT) Hepatitis A IgM Nonreactive Nonreactive [facility] Comment:IgM antibodies to VIRAMONTES V not detected; does not exclude earlyacute or recovered HAV infection. ~Hepatitis B Surface Antibody REACTIVE Nonreactive [facility] Comment:REACTIVE: > 11.99 mI U/mL Hepatitis B Core Antibody Nonreactive Nonreactive [facility] Hepatitis C Antibody Nonreactive Nonreactive [facility] Comment:Antibodies to HCV no t detected; does not exclude early acuteHCV infection. Hepatitis B Surface Ag Negative Negative [facility] Blood Venous blood specimen / Unknown 06/16/2024 8:22 AM EDT 06/16/2024 11:18 AM EDT Shereen Latham MD LAB BLOOD ORDERABLES Final Result Performing Organization Address City/[facility]/ZIP Co de Phone Number [facility] [address] [place] [phone] * HIV-1/2 Antigen and Antibodies, Fourth Generation, with Reflexes (02/24/2024 8:47 AM EDT) Pathologist [facility] HIV AB/AG Nonreactive Nonreactive [facility] Comment:HIV-1 p24 Ag and/or HIV-1/HIV-2 Ab not detected.A test result that is nonreactive does not exclude thepossibility of exposure to or infection with HIV-1 and/orHIV-2. Nonreactive results in this assay for individualswith prior exposure to HIV-1 and/or HIV-2 may be due toantigen and antibody levels that are below the limit ofdetection of this assay.The [employer] HIV Ag/Ab Combo assay result andsupplemental [...] Organization Address [facility]/ZIP Co de Phone Number [facility] [address] [place] [address] [phone] * (ABNORMAL) Cologuard?? colon cancer screening (08/27/2023 11:24 AM EDT) Cologuard Result Positive( A) Negative 09/05/2023 10:16 PM EDT [facility] (CLIA #:[id number]) Comment: POSITIVE TEST RESULT. A positive Cologuard result should be followed with a colonoscopy or visual examination of the colon. The normal value (reference range) for this assay is negative. TEST DESCRIPTION: Composite algorithmic analysis of stool DNA-biomarkers with hemoglobin immunoassay. Quantitative values of individual biomarkers are not [...] Menendez et al, N Engl J Med 2014;370(14):6586-2462.) Cologuard may produce a false negative or false positive result (no colorectal cancer or precancerous polyp present at colonoscopy follow up). A negative Cologuard test result does not guarantee the absence of CRC or advanced adenoma (pre-cancer). The current Cologuard screening interval is every 3 years. ([place] [employer] Society and U.S. Multi-Society Task Force). Cologuard performance data in a 10,000 patient pivotal study using colonoscopy as the reference method can be accessed at the following location: www.[employer]/results. Additional description of the Cologuard test process, warnings and precautions can be found at www.cologuard.com. Stool specimen (specimen) 08/27/2023 11:24 AM EDT 08/29/2023 6:48 AM EDT us Shereen Latham MD LAB MOLECULAR DIAGNOSTICS ORDERABLES Final Result Performing Organization Address [facility] de Phone Number [facility] (CLIA #:[id number]) [address] [place] [address], * HPV mRNA E6/E7 (08/12/2018 10:57 AM EDT) HPV mRNA E6/E7 Not Detected NOT DETECTED [facility] Comment: This test was performed using the APTIMA(R) HPV Assay ([employer] This assay detects E6/E7 viral messenger RNA (mRNA) from 14 high-risk HPV types (16,18,31,33,35,39,45,51, 52,56,58,59,66,68). For additional information please refer to: http://education.doo/faq/LLT266n8 (This link is being provided for informational/ educational purposes only.) The analytical performance characteristics of this assay have been determined by [employer] [place], [place]. The modifications have not been cleared or approved by the FDA. This assay has been validated pursuant to the CLIA regulations and is used for clinical purposes. Test Performed by [facility], [place] [facility], [address] [place] [address] Dwaine Morelos M.D., Ph.D., Director of Laboratories , CLIA [id number] Please note: Effective 07/14/2016, HPV testing will be performed using [employer]'s APTIMA test which targets mRNA. Detecting mRNA instead of DNA, as in older methods, offers significant improvements in specificity. 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 Advance Directives and Living Will 07/05/2024 11:59 AM Health Care Proxy Care Teams Throw Out Clerk Relationship Specialty Start Date End Date Noa, MD Shereen [address] [place] [address] PCP - General Family Medicine 11/02/18 Sury Benitez [address] [place] [address] [address] Pulmonary Disease 09/27/24 Nirali Madrid OD [address] [place] [address] Optometry 10/27/24 Li Grande MD [address] [place] [address] Hematology and Oncology 10/27/24 Anselmo Gates MD [address] [place] [address] Orthopaedic Surgery 10/27/[address] [facility] 3rd [place] [address] Cardiology 10/27/24 Herberth Stokes MD [address] [facility] 3rd [place] [address] Gastroenterology 10/27/24 Hilton Palacios MD [address] [place] [address], [address] [place] [address] Neurology 02/06/25 Aaron Pringle MD [address] [place] [address] 3rd Floor [place] [address] General Surgery 03/07/25 Pily Delaney Sales Agent Business ServicesHand Shaker 07/22/24 Elie BRASHER [facility] 12/29/24
--- OUTSIDE RECORDS SUMMARY | 2025-07-10 16:23 | XMS_ITS | Encounter Summary ---
Author Organization [facility] [employer] Address [address] [facility] 7t [place] [address] Care Team Providers Care Cadd Manager Name Role Phone [place], Shreeen NOLASCO Primary Care Provider Nupur Bullock PharmD Unavailable [phone] Sury Benitez Unavailable [phone] Julius, Nirali OD Unavailable Li Grande MD Unavailable [phone] Anselmo Gates MD Unavailable Margaret Holman Unavailable Herberth Stokes MD Unavailable [phone] Hilton Palacios MD Unavailable Aaron Pringle MD Unavailable [phone] Lori Batista Unavailable Neelima Raygoza Unavailable Reason for Referral * Consultation (Routine) - Closed Specialty Diagnoses / Procedures Referred By Walter t Referred To Contact Obstetrics and Gynecology Diagnoses Women's annual routine gynecological examination Stacey Khan MD [address] [place] [address] Phone: tel: fax: [facility] Women s Services [address] 5th Floor [address] (Main Hospital Entrance) [place] Phone: tel: fax: Referral ID Status Reason Start Date Expiration Date V isits Requested Visits Authorized [id number] Closed Specialty Services Required 01/19/2025 01/19/2026 9 9 Encounter Details Date Type Department Care Team (Late st Contact Info) Description 01/19/2025 Orders Only [facility] [address] [place] [address] Stacey Khan MD [address] [place], [place] [phone] Women's annual routine gynecological examination (Primary Dx) [...] Description 08/07/2025 1:30 PM EDT Office Visit [facility] ADULT DENTAL [address] [place] [address] Isa De La Rosa, DDS [address] [place] [address] 09/13/2025 3:15 PM EST Office Visit [facility] [address] [place] [address] Shereen Latham MD [address] [place] [address] Scheduled Referrals Name Type Priority Associated Diagnoses [...] 4:33 PM EDT) [facility] TROPONIN I HIGH SENSITIVITY 7.8 <3.5 - 17.0 ng/L [facility] Comment:The Henriquez high sens itivity Troponin-I results should beused in conjunction with other diagnostic information suchas ECG, clinical observations and information, and patientsymptoms to aid in the diagnosis of NM. 01/19/2025 4:33 PM EDT 01/19/2025 4:34 PM EDT Generic External Data Provider LAB BLOOD ORDERAB LES Final Result Performing Organization Address [facility]/ZIP Co de Phone Number [facility] [address] [place] [phone] * B Type Natriuretic Peptide (BNP) (01/19/2025 4:33 PM EDT) [facility] B Type Natriuretic Peptide 22 <100 pg/mL [facility] 01/19/2025 4:33 PM EDT 01/19/2025 4:34 PM EDT Generic External Data Provider LAB BLOOD ORDERAB LES Final Result Performing Organization Address [facility]/ZIP Co de Phone Number [facility] [address] [place] [phone] * D Dimer High Sensitivity (01/19/2025 4:33 PM EDT) [facility] D Dimer High Sensitivity <150 NG/ML [facility] Comment:D-DIMER HS REFERENCE RANGENote: Our [...] LAB BLOOD ORDERAB LES Final Result [facility] [address] [place] [address] [phone] documented in this encounter Visit Diagnoses Diagnosis Women's annual routine gynecological examination- Primary documented in this encounter Additional Health Concerns Assessment Noted Time PHQ-9 Depression Total Score: 22 025 10:17 AM EST documented as of this encounter Care Teams Cadd Manager Relationship Specialty Start Date End Date Shereen Latham MD [address] [place] [address] PCP - General Family Medicine 11/02/18 Nupur Bullock, CharleneD [address] [place] [address] Pharmacist Internal Medicine 08/09/24 05/15/25 Sury Benitez [address] [place] [address] Dr [facility] [address] [place] [address] Pulmonary Disease 09/27/24 Nirali Madrid OD [address] [place] [address] Optometry 10/27/24 Li Grande MD [address] [place] [address] Hematology and Oncology 10/27/24 Anselmo Gates MD [address] [place] [address] Orthopaedic Surgery 10/27/24 Margaret Holman [address] 3rd [place] [address] Cardiology 10/27/24 Herberth Stokes MD [address] 3rd [place] [address] Gastroenterology 10/27/24 Hilton Palacios MD [address] [place] [address], [address] [place] [address] Neurology 02/06/25 Aaron Pringle MD [address] [place] [address] 3rd [place] [address] General Surgery 03/07/25 Lori Batista Registered Nurse 06/15/25 06/15/25 Neelima Raygoza 06/15/25 06/16/25 Pily Delaney Clinical ConsultantTool Machinist 07/22/24 Elie BRASHER [facility] Psychology 12/29/24 documented as of this encounter
--- OUTSIDE RECORDS SUMMARY | 2025-07-10 16:23 | XMS_ITS | Encounter Summary ---
Author Organization [facility] Address [address] [facility] 7t [place] [address] Care Team Providers Care Anglesmith Helper Name Role Phone Shereen Latham MD Primary Care Provider [phone] Nupur Bullock PharmD Unavailable Sury Benitez Unavailable [phone] Julius, Nirali OD Unavailable Li Grande MD Unavailable [phone] Anselmo Gates MD Unavailable Margaret Holman Unavailable Herberth Stokes MD Unavailable [phone] Hilton Palacios MD Unavailable Aaron Pringle MD Unavailable [phone] Lori Batista Unavailable [phone] Neelima Raygoza Unavailable Encounter Details Date Type Department Care Team (Late st Contact Info) Description 11/16/2022 Abstract [facility] [address] [place], [place] [phone] Shereen Latham MD [address] [place], [place] [phone] Social History Tobacco Use Types Packs/Day Years [...] 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 Per Dr. Krish Loomis's note from [facility] ENVELOPE FOLD OPERATOR, pt was due for repeat colposcopy [...] > 1 year ago. -She saw Dr. Roussaeu on 01/03/2022 she had for right surgery 02/10/2022 and scheduled for left surgery * Assessment & Plan Note - Shereen Latham MD - 11/16/2022 10:55 AM EST Associated Problem(s): Hyperaldosteronism (CMS/HCC) (Resolved 07/29/2023) Seen by [facility] Endocrinology 04/03/2022. Initially seen 12/2021 for hyperaldosteronism. Labs [facility] 10/2021 aldosterone 8, plasma renin 0.11, aldosterone/renin 72.7. She was likely on spironolactone and lisinopril at time of labs. Advise no spironolactone for 6 weeks and recheck renin aldosterone levels with renal panel and magnesium in filler shaker. 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 -S/p RIGHT mastectomy with sentinel node bx by Dr. Prescott [facility] -Adriamycin/Cytoxan based chemotherapy [...] sound for abdominal pain at [facility]. Ultrasound showed diffusely echogenic parenchyma with focal sparing around the gallbladder. No suspicious lesions. Impression showed liver likely representing hepatic steatosis and non- obstructing right kidney stone. documented in this encounter Plan of Treatment Upcoming Encounters Date Type Department Care Team (Late st Contact Info) Description 08/07/2025 1:30 PM EDT Office Visit [facility] ADULT DENTAL [address] [place] [address] Paz-Connor, Isa, DDS [address] [place] [address] 09/13/2025 3:15 PM EST Office Visit [facility] [address] [place] [address] Shereen Latham MD [address] [place] [address] documented as of this encounter Visit Diagnoses Not on filedocumented in this encounter Care Teams Anglesmith Helper Relationship Specialty Start Date End Date Shereen Latham MD [address] [place] [address] PCP - General Family Medicine 11/02/18 Nupur Bullock PharmD [address] [place] [address] Pharmacist Internal Medicine 08/09/24 05/15/25 Sury Benitez [address] [place] [address] Dr [address] [place] [address] Pulmonary Disease 09/27/24 Nirali Madrid, SUSAN [address] [place] [address] Optometry 10/27/24 Li Grande MD [address] [place] [address] Hematology and Oncology 10/27/24 Anselmo Gates MD [address] [place] [address] Orthopaedic Surgery 10/27/24 Margaret Holman [address] 3rd [place] [address] Cardiology 10/27/24 Herberth Stokes MD [address] [facility] [address] 3rd [place] [address] Gastroenterology 10/27/24 Hilton Palacios MD [address] [facility] [place] [address] Neurology 02/06/25 Aaron Pringle MD [address]rd [place] [address] General Surgery 03/07/25 Lori Batista Registered Nurse 06/15/25 06/15/25 Neelima Raygoza 06/15/25 06/16/25 Pily Delaney Jacquard Twine Polisher OperatorFranchise Specialist 07/22/24 Elie BRASHER [facility] Psychology 12/29/24 documented as of this encounter
--- OUTSIDE RECORDS SUMMARY | 2025-07-10 16:23 | XMS_ITS | Clinical Summary ---
Author Organization [facility] Address [address] [place] [address] Phone Care Team Providers Care Residential Sales Executive Name Role Phone Shereen Latham MD Primary Care Provider [phone] Social History Tobacco Use Types Packs/Day Years [...] 1:00 PM EDT Consult Orthopedic Surgery - [place] [address] [phone] Antony Garrett DPM [address] [address] Health Maintenance Due Date Last Done Comments Breast Cancer Screening 1973 Cervical Cancer Screening: Pap Smear 1994 Zoster Vaccines (1 of 2) 2023 Hepatitis C Screening 08/11/2024 Social Influencers of Health Screening 08/11/2024 Depression Screening 11/02/2024 Hepatitis A Vaccines (2 of 2 - Risk 2-dose series) 12/30/2024 06/29/2024 COVID-19 Vaccine ( season) 2025 02/09/2021 Influenza Vaccine (#1) 2025 09/06/2015 Hypertension/CHF/CAD Annual [...] topic Insurance MEDICAID - [place] Care Teams Residential Sales Executive Relationship Specialty Start Date End Date [place], MD Shereen [address] [place] [phone] PCP - General 01/13/1996
--- OUTSIDE RECORDS SUMMARY | 2025-07-10 16:23 | XMS_ITS | Encounter Summary ---
Author Organization [facility] [employer] Address [address] [facility] 7 [place] [address] Care Team Providers Care Repairer Veneer Sheet Name Role Phone [place], Shereen NOLASCO Primary Care Provider [phone] Sury Benitez Unavailable [phone] Nirali Madrid OD Unavailable Li Grande MD Unavailable [phone] Anselmo Gates MD Unavailable Margaret Holman Unavailable Herberth Stokes MD Unavailable [phone] Hilton Palacios MD Unavailable Aaron Pringle MD Unavailable [phone] Neelima Raygoza Unavailable Reason for Visit * Reason Onset Date Comments active requested appt 06/16/2025 Encounter Details Date Type Department Care Team (Late st Contact Info) Description 06/16/2025 Telephone [facility] [address] [place], [place] [phone] Isa De La Rosa DDS [address] [place], [place] [phone] active requested appt Social History Tobacco Use Types Packs/Day Years [...] encounter Miscellaneous Notes * Telephone Encounter - Bebe De eLon - 06/16/2025 12:27 PM EDT Patient called in checking in on status of active requested appt. She states she has called severaltimes being informed that calendar is still not open. Please reach out to patient DR documented in this encounter Plan of Treatment Upcoming Encounters Date Type Department Care Team (Late st Contact Info) Description 08/07/2025 1:30 PM EDT Office Visit [facility] ADULT DENTAL [address] [place] [address] Paz-ConnorIsa abarca, DDS [address] [place] [address] 09/13/2025 3:15 PM EST Office Visit [facility] MEDICINE [address] [place] [address] Shereen Latham MD [address] [place] [address] documented as of this encounter Visit Diagnoses Not on filedocumented in this encounter Additional Health Concerns Assessment Noted Time PHQ-9 Depression Total Score: 21 025 11:03 AM EDT documented as of this encounter Care Teams Repairer Veneer Sheet Relationship Specialty Start Date End Date Shereen Latham MD [address] [place] [address] PCP - General Family Medicine 11/02/18 Sury Benitez [address] [place] [address] Dr [address] [place] [address] Pulmonary Disease 09/27/24 Nirali Madrid OD [address] [place] [address] Optometry 10/27/24 Li Grande MD [address] [place] [address] Hematology and Oncology 10/27/24 Anselmo Gates MD [address] [place] [address] Orthopaedic Surgery 10/27/24 Margaret Holman [address] 3rd [place] [address] Cardiology 10/27/24 Herberth Stokes MD [address] 3rd [place] [address] Gastroenterology 10/27/24 Hilton Palacios MD [address] [facility], [address] [place] [address] Neurology 02/06/25 Aaron Pringle MD [address]rd [facility] [place] [address] General Surgery 03/07/25 Neelima Raygoza 06/15/25 06/16/25 Pily Delaney Pharmacology AssociateTeaching Fellow 07/22/24 Elie Vicky [facility] Psychology 12/29/24 documented as of this encounter
--- OUTSIDE RECORDS SUMMARY | 2025-07-10 16:23 | XMS_ITS | Encounter Summary ---
Author Organization [email or web address] Address [address] [facility] 7 [place] [address] Care Team Providers Care Security Delivery Specialist Name Role Phone Shereen Latham MD Primary Care Provider [phone] Sury Benitez Unavailable [phone] Nirali Madrid OD Unavailable Li Grande MD Unavailable [phone] Anselmo Gates MD Unavailable Margaret Holman Unavailable Herberth Stokes MD Unavailable [phone] Hilton Palacios MD Unavailable Aaron Pringle MD Unavailable [phone] Lori Batista Unavailable [phone] Neelima Raygoza Unavailable Reason for Visit * Reason Onset Date Comments Nurse Triage 06/07/2025 Encounter Details Date Type Department Care Team (Late st Contact Info) Description 06/07/2025 Telephone [facility] [address] [place], [place] [phone] Shereen Latham MD [address] [place], [place] [phone] Nurse Triage Social History Tobacco Use Types Packs/Day Years Used Date Smoking Tobacco: Former Cigarettes Passive Smoke Exposure: Current Smokeless Tobacco: [...] Telephone Encounter - Rox Cervantes RN - 06/07/2025 3:40 PM EDT Triage call Pt reports NAIDA/cold sx since yesterday. Pt reports nasal , head and ear congestion and sore throat. Fever last night (tactile). Cough but Pt does have CHF hx and has a chronic SOB with some weakness and fatigue. Pt is concerned because someone in residence was sent to hospital with MRSAinfection and pneumonia. Pt is reporting that Pt has been compliant with care regiment of medications and treatments for CHF and was doing well until last night. Pt is advised to come to [facility] open till 8pm this evening to be seen by provider. Pt agrees with this disposition. Pt will come to [facility] after 5pm since is in the hospital at this time with other person who was sent there. Pt declines going to ED. Protocol Used: Sinus Pain or Congestion (Adult) Protocol-Based Disposition: See in Office or Video Visit Today or Tomorrow Video visit offer not recorded Positive Triage Questions: * Lots of coughing * Patient wants to be seen * All higher-acuity triage questions were negative Care Advice Discussed: * Reassurance and Education - Colds and Sinus Congestion * For a Runny Nose - Blow Your Nose * Hydration * Reasons To Call Back - Severe pain lasts over 2 hours after pain medicine - Sinus pain lasts over 1 day after using nasal washes - Sinus congestion (fullness) lasts over 10 days - Fever lasts over 3 days - You become worse * Telephone Encounter - Martina Hanna - 06/07/2025 3:09 PM EDT Symptoms: Runny Nose, Sore Throat Outcome: Schedule an appointment to be seen within 24 hours Reason: Caller denied all higher acuity questions The caller accepted this outcome. Pt stated she was exposed to Bursae Contact pt at [phone] documented in this encounter Plan of Treatment Upcoming Encounters Date Type Department Care Team ([facility] st Contact Info) Description 08/07/2025 1:30 PM EDT Office Visit [facility] ADULT DENTAL [address] [place] [address] Isa De La Rosa, JUAN FRANCISCOS [address] [place] [address] 09/13/2025 3:15 PM EST Office Visit [facility] MEDICINE [address] [place] [address] Shereen Latham MD 230 [place] [address] documented as of this encounter Visit Diagnoses Not on filedocumented in this encounter Additional Health Concerns Assessment Noted Time PHQ-9 Depression Total Score: 21 025 11:03 AM EDT documented as of this encounter Care Teams Security Delivery Specialist Relationship Specialty Start Date End Date Shereen Latham MD [address] [place] [address] PCP - General Family Medicine 11/02/18 Sury Benitez [address] [place] [address] Dr [facility] 103 [place] [address] Pulmonary Disease 09/27/24 Nirali Madrid OD [address] [place] [address] Optometry 10/27/24 Li Grande MD [address] [place] [address] Hematology and Oncology 10/27/24 Anselmo Gates MD [address] [facility] [address] [place] [address] Orthopaedic Surgery 10/27/24 Margaret Holman [address] [facility] [address] 3rd [place] [address] Cardiology 10/27/24 Herberth Stokes MD 11 [facility] 3rd [place] [address] Gastroenterology 10/27/24 Hilton Palacios MD [address] [place] [address], [address] [place] [address] Neurology 02/06/25 Aaron Pringle MD [address] [place] [address] 3rd Floor [place] [address] General Surgery 03/07/25 Lori Batista Registered Nurse 06/15/25 06/15/25 Neelima Raygoza 06/15/25 06/16/[address] InspectorClient Resource Specialist 07/22/24 Elie Vicky [facility] Psychology 12/29/24 documented as of this encounter
--- OUTSIDE RECORDS SUMMARY | 2025-07-10 16:23 | XMS_ITS | Encounter Summary ---
Author Organization [employer] Address [address] [place] [address] 7 [place] [address] Care Team Providers Care Roll Bucker Name Role Phone Shereen Latham MD Primary Care Provider [phone] Nupur Bullock PharmD Unavailable Sury Benitez Unavailable [phone] Julius, Nirali OD Unavailable Li Grande MD Unavailable [phone] Anselmo Gates MD Unavailable Margaret Holman Unavailable Herberth Stokes MD Unavailable [phone] Hilton Palacios MD Unavailable Aaron Pringle MD Unavailable [phone] Lori Batista Unavailable [phone] Neelima Raygoza Unavailable Reason for Visit * Reason Onset Date Comments ER Follow-up 12/07/2024 Encounter Details Date Type Department Care Team (Late st Contact Info) Description 12/07/2024 Telephone [facility] MEDICINE [address] [place], [place] [phone] Shereen Latham MD 230 [place] [address] ER Follow-up Social History Tobacco Use Types [...] the past 12 months, has t he [employer], gas, oil or water company threatened to [...] placed to pt to f/u on [facility] visit on 12/06/2024 for right lower [...] ED visit on : Date: 12/06/24 Hospital: [facility] Seen for: Flu Patient advised will forward to team nurse for follow up documented in this encounter Plan of Treatment Upcoming Encounters Date Type Department Care Team (Late st Contact Info) Description 08/07/2025 1:30 PM EDT Office Visit [facility] ADULT DENTAL [address] [place] [address] Paz-Connor, Isa, DDS 230 [place] [address] 09/13/2025 3:15 PM EST Office Visit [facility] MEDICINE [address] [place] [address] Shereen Latham MD 230 [place] [address] documented as of this encounter Visit Diagnoses Not on filedocumented in this encounter Additional Health Concerns Assessment Noted Time PHQ-9 Depression Total Score: 13 024 4:53 PM EDT documented as of this encounter Care Teams Roll Bucker Relationship Specialty Start Date End Date Shereen Latham MD 230 [place] [address] PCP - General Family Medicine 11/02/18 Nupur Bullock, CharleneD 230 [place] [address] Pharmacist Internal Medicine 08/09/24 05/15/25 Sury Benitez [address] [place] [address] [address] [place] [address] Pulmonary Disease 09/27/24 Nirali Madrid OD [address] [place] [address] Optometry 10/27/24 Li Grande MD [address] [place] [address] Hematology and Oncology 10/27/24 Anselmo Gates MD [address] [place] [address] Orthopaedic Surgery 10/27/24 Margaret Holman [address] [facility] [address] [place] [address] Cardiology 10/27/24 Herberth Stokes MD [address] [facility] [address] [place] [address] Gastroenterology 10/27/24 Hilton Palacios MD 15 [facility], [address] [place] [address] Neurology 02/06/25 Aaron Pringle MD [address] [facility] [address] [place] [address] General Surgery 03/07/25 Lori Batista Registered Nurse 06/15/25 06/15/25 Neelima Raygoza 06/15/25 06/16/25 Pily Delaney Business Test AnalystBurnisher And Bumper 07/22/24 Elie Vicky [facility] Psychology 12/29/24 documented as of this encounter
--- OUTSIDE RECORDS SUMMARY | 2025-07-10 16:23 | XMS_ITS | Encounter Summary ---
Author Organization [employer] Address [address] [place] [address] 7 [place] [address] Care Team Providers Care Pearl Diver Name Role Phone Shereen Latham MD Primary Care Provider [phone]- [phone] Nupur Bullock PharmD Unavailable Sury Benitez Unavailable [phone] JuliusLestern OD Unavailable Li Grande MD Unavailable [phone] Anselmo Gates MD Unavailable Margaret Holman Unavailable Herberth Stokes MD Unavailable [phone] Hilton Palacios MD Unavailable Aaron Pringle MD Unavailable [phone] Lori Batista Unavailable [phone] Neelima Raygoza Unavailable Reason for Visit * Reason Onset Date Comments Appointment Request 04/25/2025 Encounter Details Date Type Department Care Team (Late st Contact Info) Description 04/25/2025 Telephone [facility] MEDICINE 230 [place], [place] [phone] Shereen Latham MD 230 [place], [place] [phone] Appointment Request Social History Tobacco Use Types [...] encounter Miscellaneous Notes * Telephone Encounter - Cheyrl Izaguirre - 04/25/2025 9:50 AM EDT TC from pt requesting to r/s today appt. documented in this encounter Plan of Treatment Upcoming Encounters Date Type Department Care Team (Late st Contact Info) Description 08/07/2025 1:30 PM EDT Office Visit [facility] ADULT DENTAL 230 [place] [address] Paz-ConnorAlfredo abarcafemia, DDS 230 [place] [address] 09/13/2025 3:15 PM EST Office Visit [facility] MEDICINE 230 [place] [address] Shereen Latham MD [address] [place] [address] documented as of this encounter Visit Diagnoses Not on filedocumented in this encounter Additional Health Concerns Assessment Noted Time PHQ-9 Depression Total Score: 22 12/29/ 025 10:17 AM EST documented as of this encounter Care Teams Pearl Diver Relationship Specialty Start Date End Date Shereen Latham MD [address] [place] [address] PCP - General Family Medicine 11/02/18 Nupur Bullock, CharleneD [address] [place] [address] Pharmacist Internal Medicine 08/09/24 05/15/25 Sury Benitez [address] [place] [address] [place] [address] Pulmonary Disease 09/27/24 Nirali Madrid OD [address] [place] [address] Optometry 10/27/24 Li Grande MD [address] [place] [address] Hematology and Oncology 10/27/24 Anselmo Gates MD [address] [place] [address] Orthopaedic Surgery 10/27/24 Margaret Holman [address] 3rd [place] [address] Cardiology 10/27/24 Herberth Stokes MD [address] [facility] [address] [place] [address] Gastroenterology 10/27/24 Hilton Palacios MD 15 [facility], [address] [place] [address] Neurology 02/06/25 Aaron Pringle MD [address] [place] [address] General Surgery 03/07/25 Lori Batista Registered Nurse 06/15/25 06/15/25 Neelima Raygoza 06/15/25 06/16/25 Pily Delaney Senior Telecommunications SpecialistDoubling Machine Operator 07/22/24 Elie Vicky [facility] Psychology 12/29/24 documented as of this encounter
--- OUTSIDE RECORDS SUMMARY | 2025-07-10 16:23 | XMS_ITS | Encounter Summary ---
Author Organization [employer] Address [address] [facility] 7t [place] [address] Care Team Providers Care Aircraft Tool Maker Name Role Phone Shereen Latham MD Primary Care Provider [phone] Nupur Bullock PharmD Unavailable Sury Benitez Unavailable [phone] Julius, Nirali OD Unavailable Li Grande MD Unavailable [phone] Anselmo Gates MD Unavailable Margaret Holman Unavailable Herberth Stokes MD Unavailable [phone] Hilton Palacios MD Unavailable Aaron Pringle MD Unavailable [phone] Lori Batista Unavailable [phone] Neelima Raygoza Unavailable Encounter Details Date Type Department Care Team (Late st Contact Info) Description 07/27/2023 Orders Only [facility] MEDICINE 230 [place], [place] [phone] Shereen Latham MD 230 [place], [place] [phone] Hypomagnesemia Social History Tobacco Use Types Packs/Day [...] Description 08/07/2025 1:30 PM EDT Office Visit [facility] ADULT DENTAL [address] [place] [address] Paz-ConnorIsa abarca, DDS [address] [place] [address] 09/13/2025 3:15 PM EST Office Visit [facility] MEDICINE [address] [place] [address] Shereen Latham MD [address] [place] [address] documented as of this encounter Visit Diagnoses Diagnosis Hypomagnesemia Disorders of magnesium metabolism documented in this encounter Additional Health Concerns Assessment Noted Time PHQ-9 Depression Total Score: 10 023 10:27 AM EDT documented as of this encounter Care Teams Aircraft Tool Maker Relationship Specialty Start Date End Date Shereen Latham MD [address] [place] [address] PCP - General Family Medicine 11/02/18 Nupur Bullock, CharleneD [address] [place] [address] Pharmacist Internal Medicine 08/09/24 05/15/25 Sury Benitez [address] [place] [address] [address] [place] [address] Pulmonary Disease 09/27/24 Julius, Nirali, OD [address] [place] [address] Optometry 10/27/24 Li Grande MD 575 [place] [address] Hematology and Oncology 10/27/24 Anselmo Gates MD [address] [place] [address] Orthopaedic Surgery 10/27/24 Margaret Holman [address] [place] [address] Cardiology 10/27/24 Herberth Stokes MD 11 [facility] 3rd [place] [address] Gastroenterology 10/27/24 Hilton Palacios MD 15 [facility], [address] [place] [address] Neurology 02/06/25 Aaron Pringle MD 11 [facility] [address] [place] [address] General Surgery 03/07/25 Lori Batista Registered Nurse 06/15/25 06/15/25 Neelima Raygoza 06/15/25 06/16/25 Pily Delaney Director Of OfficiatingData Abstractor 07/22/24 Elie Vicky [facility] Psychology 12/29/24 documented as of this encounter
--- OUTSIDE RECORDS SUMMARY | 2025-07-10 16:23 | XMS_ITS | Clinical Summary ---
Author Organization [facility] Address [address] [facility] [address] [place] [address] Phone Care Team Providers Care Recoverer Name Role Phone Unavailable Primary Care Provider [...] It is not the complete legal health record.[facility]
--- OUTSIDE RECORDS SUMMARY | 2025-07-10 16:23 | XMS_ITS | Encounter Summary ---
Author Organization [employer] Address [address] [facility] 7t [place] [address] Care Team Providers Care Ambulatory Care Name Role Phone Noa, Shereen NOLASCO Primary Care Provider [phone] Nupur Bullock PharmD Unavailable [phone] Sury Benitez Unavailable [phone] Julius, Nirali OD Unavailable Li Grande MD Unavailable [phone] Anselmo Gates MD Unavailable Margaret Holman Unavailable Herberth Stokes MD Unavailable [phone] Hilton Palacios MD Unavailable Aaron Pringle MD Unavailable [phone] Lori Batista Unavailable [phone] Neelima Raygoza Unavailable Encounter Details Date Type Department Care Team (Latest Contact Info) Description 08/16/2021 Abstract [facility] CONVERSIONS Dental, Provider, DDS Social [...] Description 08/07/2025 1:30 PM EDT Office Visit [facility] ADULT DENTAL [address] [place] [address] Paz-Connor, Isa, DDS 230 [place] [address] 09/13/2025 3:15 PM EST Office Visit [facility] MEDICINE [address] [place] [address] Sherene Latham MD [address] [place] [address] documented as of this encounter Visit Diagnoses Not on filedocumented in this encounter Care Teams Ambulatory Care Relationship Specialty Start Date End Date Shereen Latham MD [address] [place] [address] PCP - General Family Medicine 11/02/18 Nupur Bullock, CharleneD [address] [place] [address] Pharmacist Internal Medicine 08/09/24 05/15/25 Sury Benitez [address] [place] [address] [address] Pulmonary Disease 09/27/24 Nirali Madrid OD 267 [place] [address] Optometry 10/27/24 Li Grande MD [address] [place] [address] Hematology and Oncology 10/27/24 Anselmo Gates MD [address] [place] [address] Orthopaedic Surgery 10/27/24 Margaret Holman [address]rd [place] [address] Cardiology 10/27/24 Herberth Stokes MD [address] 3rd [place] [address] Gastroenterology 10/27/24 Hilton Palacios MD [address] [facility] [address], [address] [place] [address] Neurology 02/06/25 Aaron Pringle MD [address] [facility] [place] [address] General Surgery 03/07/25 Lori Batista Registered Nurse 06/15/25 06/15/25 Neelima Raygoza 06/15/25 06/16/25 Pily Delaney Pipe Fitter Soft CopperAircraft Inspection Record Clerk 07/22/24 Elie Vicky [facility] 12/29/24 documented as of this encounter
--- OUTSIDE RECORDS SUMMARY | 2025-07-10 16:23 | XMS_ITS | Encounter Summary ---
Author Organization [employer] Address [address] [place] [address] 7t [place] [address] Care Team Providers Care Beauty Parlor Cleaner Name Role Phone Shereen Latham MD Primary Care Provider [phone] Nupur Bullock PharmD Unavailable Sury Benitez Unavailable [phone] Julius, Nirali OD Unavailable Li Grande MD Unavailable [phone] Anselmo Gates MD Unavailable Margaret Holman Unavailable Herberth Stokes MD Unavailable [phone] Hilton Palacios MD Unavailable Aaron Pringle MD Unavailable [phone] Lori Batista Unavailable [phone] Neelima Raygoza Unavailable Reason for Visit * Reason Comments Med Refill Encounter Details Date Type Department Care Team (Late st Contact Info) Description 12/02/2022 Refill [facility] MEDICINE 230 [place], [place] [phone] Shereen Latham MD 230 [place], [place] [phone] Wheeze (Primary Dx); Pain Social History Tobacco [...] Description 08/07/2025 1:30 PM EDT Office Visit [facility] ADULT DENTAL [address] [place] [address] Isa De La Rosa DDS [address] [place] [address] 09/13/2025 3:15 PM EST Office Visit [facility] MEDICINE [address] [place] [address] Shereen Latham MD [address] [place] [address] documented as of this encounter Visit Diagnoses Diagnosis Wheeze- Primary Wheezing Pain Generalized pain documented in this encounter Care Teams Beauty Parlor Cleaner Relationship Specialty Start Date End Date Shereen Latham MD [address] [place] [address] PCP - General Family Medicine 11/02/18 Nupur Bullock, CharleneD [address] [place] [address] Pharmacist Internal Medicine 08/09/24 05/15/25 Sury Benitez [address] [place] [address] [place] [address] [place] [address] Pulmonary Disease 09/27/24 Nirali Madrid OD [address] [place] [address] Optometry 10/27/24 Li Grande MD 575 [place] [address] Hematology and Oncology 10/27/24 Anselmo Gates MD [address] [place] [address] Orthopaedic Surgery 10/27/24 Margaret Holman [address] 3rd [place] [address] Cardiology 10/27/24 Herberth Stokes MD 11 [facility] 3rd [place] [address] Gastroenterology 10/27/24 Hilton Palacios MD 15 [facility], [address] [place] [address] Neurology 02/06/25 Aaron Pringle MD [address] [place] [address] General Surgery 03/07/25 Lori Batista Registered Nurse 06/15/25 06/15/25 Neelima Raygoza 06/15/25 06/16/25 Pily Delaney Driver TraineeSignals Analyst 07/22/24 Elie Vicky [facility] 12/29/24 documented as of this encounter
== END 2025-07-10 14:51 | disposition home or self-care (01) ==
LOC: HO.HGS 14:01
PROVIDERS: PCP Family Medicine; Visit Provider Surgery
DX: C50.912 Malignant neoplasm of unspecified site of left female breast (principal)
CPT/HCPCS: 99024

== ENCOUNTER → 2025-07-10 14:00 | Outpatient (BNVA) | payer MEDICAID, SELFPAY | PROVIDERS: PCP Family Medicine; Visit Provider Surgery | DX: Z98.890 Other specified postprocedural states (principal); C50.912 Malignant neoplasm of unspecified site of left female breast | CPT/HCPCS: 99212 ==

== ENCOUNTER 2025-07-20 13:51 | Outpatient (REF) | payer MEDICAID, SELFPAY ==
--- NOTE | ~2025-07-20 | XR_ITS ---
EXAMINATION: XR HAND 3 VIEWS BILATERAL CLINICAL INFORMATION: bl thumb pain ongoing COMPARISON: None available. TECHNIQUE: PA, lateral, and oblique views of the right left hands. FINDINGS: Normal alignment. No erosions or fractures. Joint spaces are preserved. No abnormal soft tissue calcification. XR/XR Hand Bilat min 3v IMPRESSION: Unremarkable examination. Electronically signed by: Julian Garcia MD 07/20/2025 02:38 PM EDT
--- OUTSIDE RECORDS SUMMARY | 2025-07-20 13:15 | XMS_ITS | Encounter Summary ---
Author Organization [employer] Address 75 [facility] 7 [place] [address] Care Team Providers Care Exhibit Artist Name Role Phone [place], Shereen NOLASCO Primary Care Provider [phone] Sury Benitez Unavailable [phone] Nirali Madrid OD Unavailable Li Grande MD Unavailable [phone] Anselmo Gates MD Unavailable Margaret Holman Unavailable Herberth Stokes MD Unavailable [phone] Hilton Palacios MD Unavailable Aaron Pringle MD Unavailable [phone] Encounter Details Date Type Department Care Team (Late st Contact Info) Description 07/20/2025 1:15 PM EDT Office Visit [facility] MEDICINE 230 [place], [place] [phone] Junie Padron MD 230 [place], [place] [phone] Pain in both hands (Primary Dx) Social History Tobacco Use Types [...] Sign Reading Time Taken Comments Blood Pressure 110/80 07/20/2025 2:10 PM EDT Pulse 102 07/20/2025 2:10 PM EDT Temperature 36.6 C (97.8 F) 07/20/2025 2:10 PM EDT Respiratory Rate 20 07/20/2025 2:10 PM EDT Oxygen Saturation 99% 07/20/2025 2:10 PM EDT Inhaled Oxygen Concentration - - Weight 89.7 kg (197 lb 12.8 oz) 07/20/2025 2:10 PM EDT Height 170.2 cm (5' 7 ) 07/20/2025 2:10 PM EDT Body Mass Index 30.98 07/20/2025 2:10 PM EDT documented in this encounter Plan of Treatment Upcoming Encounters Date Type Department Care Team (Late st Contact Info) Description 08/07/2025 1:30 PM EDT Office Visit [facility] ADULT DENTAL [address] [place] [address] sIa De La Rosa, DDS [address] [place] [address] 09/13/2025 3:15 PM EST Office Visit [facility] MEDICINE [address] [place] [address] Shereen Latham MD 230 [place] [address] Scheduled Orders Name Type Priority Associated Diagnoses Orde r Schedule C-reactive Protein Lab Routine Pain in both hands Expected: 07/20/2025 (Approximate), Expires: 07/20/2026 Sed Rate by Modified [place] Lab Routine Pain in both hands Expected: 07/20/2025, Expires: 07/20/2026 Uric acid Lab Routine Pain in both hands Expected: 07/20/2025 (Approximate), Expires: 07/20/2026 XR Hand 3+Views Bilateral Imaging Routine Pain in both hands Expected: 07/20/2025, Expires: 07/20/2026 documented as of this encounter Visit Diagnoses Diagnosis Pain in both hands- Primary documented in this encounter Additional Health Concerns Assessment Noted Time PHQ-9 Depression Total Score: 21 025 11:03 AM EDT documented as of this encounter Care Teams Exhibit Artist Relationship Specialty Start Date End Date Shereen Latham MD 230 [facility] [place] [address] PCP - General Family Medicine 11/02/18 Sury Benitez [address] [facility] [address] [place] [address] Pulmonary Disease 09/27/24 Julius Nirali SUSAN 267 [place] [address] Optometry 10/27/24 Li Grande MD 575 [place] [address] Hematology and Oncology 10/27/24 Anselmo Gates MD [address] [place] [address] Orthopaedic Surgery 10/27/24 Margaret Holman [address]rd [place] [address] Cardiology 10/27/24 Herberth Stokes MD 11 [facility] 3rd [place] [address] Gastroenterology 10/27/24 Hilton Palacios MD [address] [facility], [address] [place] [address] Neurology 02/06/25 Aaron Pringle MD [address] [facility] [address] 3rd [place] [address] General Surgery 03/07/25 Pily Delaney Engineering SecretaryField Administrative Assistant 07/22/[address] [facility] 12/29/24 documented as of this encounter
--- OUTSIDE RECORDS SUMMARY | 2025-07-20 15:53 | XMS_ITS | Encounter Summary ---
Author Organization [employer] Address [address] [place] [address] 7 [place] [address] Care Team Providers Care Asphalt Screed Operator Name Role Phone Shereen Latham MD Primary Care Provider [phone] Nupur Bullock PharmD Unavailable Sury Benitez Unavailable [phone] Julius, Nirali OD Unavailable Li Grande MD Unavailable [phone] Anselmo Gates MD Unavailable Margaret Holman Unavailable Herberth Stokes MD Unavailable [phone] Hilton Palacios MD Unavailable Aaron Pringle MD Unavailable [phone] Lori Batista Unavailable [phone] Neelima Raygoza Unavailable Reason for Visit * Reason Onset Date Comments Nurse Triage 02/13/2025 Encounter Details Date Type Department Care Team (Late st Contact Info) Description 02/13/2025 Telephone [facility] [address] [place], [place] [phone] Shereen Latham MD [address] [place], [place] [phone] Nurse Triage Social History Tobacco Use Types [...] Office Visit [facility] [address] [place] [address] Isa De La Rosa, DDS [address] [place] [address] 09/13/2025 3:15 PM EST Office Visit [facility] [address] [place] [address] Shereen Latham MD [address] [place] [address] documented as of this encounter Visit Diagnoses Not on filedocumented in this encounter Additional Health Concerns Assessment Noted Time PHQ-9 Depression Total Score: 22 12/29/ 025 10:17 AM EST documented as of this encounter Care Teams Asphalt Screed Operator Relationship Specialty Start Date End Date Shereen Latham MD [address] [place] [address] PCP - General Family Medicine 11/02/18 Nupur Bullock, PharmD [address] [place] [address] Pharmacist Internal Medicine 08/09/24 05/15/25 Sury Benitez [address] [place] [address] Dr [facility] [address] [place] [address] Pulmonary Disease 09/27/24 Nirali Madrid OD [address] [place] [address] Optometry 10/27/24 Li Grande MD [address] [place] [address] Hematology and Oncology 10/27/24 Anselmo Gates MD [address] [place] [address] Orthopaedic Surgery 10/27/24 Margaret Holman 11 [facility] 3rd [place] [address] Cardiology 10/27/24 Herberth Stokes MD 11 [facility] 3rd [place] [address] Gastroenterology 10/27/24 Hilton Palacios MD [address] [place] [address] DR, [address] [place] [address] Neurology 02/06/25 Aaron Pringle MD [address] [place] [address] Drive 3rd Floor [place] [address] General Surgery 03/07/25 Lori Batista Registered Nurse 06/15/25 06/15/25 Neelima Raygoza 06/15/25 06/16/25 Pily Delaney Patient Care SpecialistTissue Technologist 07/22/24 Elie Vicky [facility] Psychology 12/29/24 documented as of this encounter
--- OUTSIDE RECORDS SUMMARY | 2025-07-20 15:53 | XMS_ITS | Encounter Summary ---
Author Organization [employer] Address [address] [facility] 7t [place] [address] Care Team Providers Care Cured Meats Supervisor Name Role Phone Shereen Latham MD Primary Care Provider [phone] Nupur Bullock PharmD Unavailable Sury Benitez Unavailable [phone] Julius, Nirali OD Unavailable Li Grande MD Unavailable [phone] Anselmo Gates MD Unavailable Margaret Holman Unavailable Herberth Stokes MD Unavailable [phone] Hilton Palacios MD Unavailable Aaron Pringle MD Unavailable [phone] Lori Batista Unavailable [phone] Neelima Raygoza Unavailable Encounter Details Date Type Department Care Team (Late st Contact Info) Description 10/22/2023 Orders Only [facility] [address] [place], [place] [phone] Shereen Latham MD 230 [place], [place] [phone] Vitamin D deficiency Social History Tobacco Use [...] Description 08/07/2025 1:30 PM EDT Office Visit [facility] ADULT DENTAL [address] [place] [address] Isa De La Rosa DDS [address] [place] [address] 09/13/2025 3:15 PM EST Office Visit [facility] [address] [place] [address] Shereen Latham MD [address] [place] [address] documented as of this encounter Visit Diagnoses Diagnosis Vitamin D deficiency documented in this encounter Additional Health Concerns Assessment Noted Time PHQ-9 Depression Total Score: 023 10:42 AM EST documented as of this encounter Care Teams Cured Meats Supervisor Relationship Specialty Start Date End Date Shereen Latham MD [address] [place] [address] PCP - General Family Medicine 11/02/18 Nupur Bullock, CharleneD [address] [place] [address] Pharmacist Internal Medicine 08/09/24 05/15/25 Sury Benitez [address] [facility] [address] [place] [address] Pulmonary Disease 09/27/24 Nirali Madrid OD 267 [facility] [place] [address] Optometry 10/27/24 Li Grande MD 575 [place] [address] Hematology and Oncology 10/27/24 Anselmo Gates MD [address] [place] [address] Orthopaedic Surgery 10/27/24 Margaret Holman 11 [facility] 3rd [place] [address] Cardiology 10/27/24 Herberth Stokes MD 11 [facility] 3rd [place] [address] Gastroenterology 10/27/24 Hilton Palacios MD [address] [facility], [address] [place] [address] Neurology 02/06/25 Aaron Pringle MD 11 [facility] 3rd [place] [address] General Surgery 03/07/25 Lori Batista Registered Nurse 06/15/25 06/15/25 Neelima Raygoza 06/15/25 06/16/25 Pily Delaney Curator Horticultural MuseumAlteration Workroom Supervisor 07/22/24 Elie Vicky [facility] 12/29/24 documented as of this encounter
--- OUTSIDE RECORDS SUMMARY | 2025-07-20 15:53 | XMS_ITS | Encounter Summary ---
Author Organization [employer] Address [address] [place] [address] 7 [place] [address] Care Team Providers Care Industrial Gas Servicer Supervisor Name Role Phone Shereen Latham MD Primary Care Provider [phone] Nupur Bullock PharmD Unavailable Sury Benitez Unavailable [phone] Julius, Nirali OD Unavailable Li Grande MD Unavailable [phone] Anselmo Gates MD Unavailable Margaret Holman Unavailable Herberth Stokes MD Unavailable [phone] Hilton Palacios MD Unavailable Aaron Pringle MD Unavailable [phone] Lori Batista Unavailable [phone] Neelima Raygoza Unavailable Reason for Visit * Reason Onset Date Comments Nurse Triage 05/25/2024 Encounter Details Date Type Department Care Team (Late st Contact Info) Description 05/25/2024 Telephone [facility] [address] [place], [place] [phone] Shereen Latham MD 230 [place], [place] [phone] Nurse Triage Social History Tobacco Use Types [...] the past 12 months, has t he [employer], oil or water [email or web address] threatened to shut off services in your [...] Miscellaneous Notes * Telephone Encounter - Rox Crevantes RN - 05/25/2024 12:05 PM EDT Triage call Pt reports is being treated for gout with prednisone. Pt seen in [facility] 04/25/24 for acuteleft foot gout and prednisone was started for about 9 days then 05/02/24 prednisone was ordered for 14 days for continued left foot acute gout . Pt reports Pt was seen in [facility] 05/11/24 for continued leftfoot pain and Pt was seen by director operating room, Leta Lunsford MD 05/11/24 also (report is on the chart). Pt had been advised to stop BP med chlorthalidone per director operating room [facility] because that particular medication is [...] anxiety. Pt is advised to come to [facility] today , open till 8pm, [...] 1:30 PM EDT Office Visit [facility] ADULT D[facility] [address] [place] [address] Paz-Connor, Isa, DDS [address] [place] [address] 09/13/2025 3:15 PM EST Office Visit [facility] [address] [place] [address] Shereen Latham MD [address] [place] [address] documented as of this encounter Visit Diagnoses Not on filedocumented in this encounter Additional Health Concerns Assessment Noted Time PHQ-9 Depression Total Score: 22 024 9:12 AM EDT documented as of this encounter Care Teams Industrial Gas Servicer Supervisor Relationship Specialty Start Date End Date Shereen Latham MD [address] [place] [address] PCP - General Family Medicine 11/02/18 Nupur Bullock PharmD [address] [place] [address] Pharmacist Internal Medicine 08/09/24 05/15/25 Sury Benitez [address] [place] [address] [place] [address] [place] [address] Pulmonary Disease 09/27/24 Nirali Madrid OD [address] [place] [address] Optometry 10/27/24 Li Grande MD [address] [place] [address] Hematology and Oncology 10/27/24 Anselmo Gates MD [address] [place] [address] Orthopaedic Surgery 10/27/24 Margaret Holman [address] 3rd [place] [address] Cardiology 10/27/24 Herberth Stokes MD [address] 3rd [place] [address] Gastroenterology 10/27/24 Hilton Palacios MD [address] [facility] [address] [place] [address] Neurology 02/06/25 Aaron Pringle MD [address] [place] [address] General Surgery 03/07/25 Lori Batista Registered Nurse 06/15/25 06/15/25 Neelima Raygoza 06/15/25 06/16/25 Pily Delaney Stores Despatch HandEmergency Communications Officer 07/22/24 Elie Vicky [facility] 12/29/24 documented as of this encounter
--- OUTSIDE RECORDS SUMMARY | 2025-07-20 15:53 | XMS_ITS | Encounter Summary ---
Author Organization [employer] Address 75 [facility] 7 [place] [address] Care Team Providers Care Insurance Claims Adjuster Name Role Phone Shereen Latham MD Primary Care Provider [phone] Sury Benitez Unavailable [phone] Nirali Madrid OD Unavailable Li Grande MD Unavailable [phone] Anselmo Gates MD Unavailable Margaret Holman Unavailable Herberth Stokes MD Unavailable [phone] Hilton Palacios MD Unavailable Aaron Pringle MD Unavailable [phone] Reason for Visit * Reason Comments Med Refill Encounter Details Date Type Department Care Team (Late st Contact Info) Description 07/02/2025 Refill [facility] [address] [place], [place] [phone] Shereen Latham MD 230 [place], [place] [phone] Alcohol abuse Social History Tobacco Use Types [...] Description 08/07/2025 1:30 PM EDT Office Visit [facility] ADULT DENTAL 230 [place] [address] Isa De La Rosa DDS [address] [place] [address] 09/13/2025 3:15 PM EST Office Visit [facility] [address] [place] [address] Shereen Latham MD [address] [place] [address] documented as of this encounter Visit Diagnoses Diagnosis Alcohol abuse Nondependent alcohol abuse, unspecified drinking behavior documented in this encounter Additional Health Concerns Assessment Noted Time PHQ-9 Depression Total Score: 21 025 11:03 AM EDT documented as of this encounter Care Teams Insurance Claims Adjuster Relationship Specialty Start Date End Date Shereen Latham MD [address] [place] [address] PCP - General Family Medicine 11/02/18 Sury Benitez [address] [place] [address] Dr [facility] [address] [place] [address] Pulmonary Disease 09/27/24 Nirali Madrid OD [address] [place] [address] Optometry 10/27/24 Li Grande MD [address] [place] [address] Hematology and Oncology 10/27/24 Anselmo Gates MD [address] [facility] [address] [place] [address] Orthopaedic Surgery 10/27/24 Margaret Holman 11 [facility] 3rd [place] [address] Cardiology 10/27/24 Herberth Stokes MD 11 [facility] 3rd [place] [address] Gastroenterology 10/27/24 Hilton Palacios MD [address] [place] [address] DR, [address] [place] [address] Neurology 02/06/25 Aaron Pringle MD [address] [place] [address] 3rd [place] [address] General Surgery 03/07/25 Pily Delaney Machinery EngineerLogistics Manager 07/22/24 Elie Vicky [facility] Psychology 12/29/24 documented as of this encounter
--- OUTSIDE RECORDS SUMMARY | 2025-07-20 15:53 | XMS_ITS | Encounter Summary ---
Author Organization [employer] Address [address] [place] [address] 7 [place] [address] Care Team Providers Care Acute Care Assistant Name Role Phone Shereen Latham MD Primary Care Provider [phone] Nupur Bullock PharmD Unavailable Sury Benitez Unavailable [phone] Julius, Nirali OD Unavailable Li Grande MD Unavailable Anselmo Gates MD Unavailable Margaret Holman Unavailable Herberth Stokes MD Unavailable [phone] Hilton Palacios MD Unavailable [phone] Aaron Pringle MD Unavailable [phone] Lori Batista Unavailable [phone] Neelima Raygoza Unavailable Encounter Details Date Type Department Care Team (Late st Contact Info) Description 05/02/2024 Orders Only [facility] MEDICINE [address] [place], [place] [phone] Shereen Latham MD 230 [place], [place] [phone] Gout, unspecified cause, unspecified chronicity, unspecified site [...] the past 12 months, has t he [employer], gas, oil or water [employer] threatened to shut off services in your [...] Description 08/07/2025 1:30 PM EDT Office Visit [facility] ADULT DENTAL [address] [place] [address] Rj Isa, DDS [address] [place] [address] 09/13/2025 3:15 PM EST Office Visit [facility] MEDICINE [address] [place] [address] Shereen Latham MD 230 [place] [address] documented as of this encounter Visit Diagnoses Diagnosis Gout, unspecified cause, unspecified chronicity, unspecified site- Primary documented in this encounter Additional Health Concerns Assessment Noted Time PHQ-9 Depression Total Score: 23 024 1:45 PM EDT documented as of this encounter Care Teams Acute Care Assistant Relationship Specialty Start Date End Date Shereen Latham MD 230 [place] [address] PCP - General Family Medicine 11/02/18 Nupur Bullock, CharleneD 230 [place] [address] Pharmacist Internal Medicine 08/09/24 05/15/25 Sury Benitez [address] [place] [address] Dr [address] [place] [address] Pulmonary Disease 09/27/24 Nirali Madrid OD [address] [place] [address] Optometry 10/27/24 Li Grande MD [address] [place] [address] Hematology and Oncology 10/27/24 Anselmo Gates MD [address] [place] [address] Drive [address] [place] [address] Orthopaedic Surgery 10/27/24 Margaret Holman [address] [place] [address] Cardiology 10/27/24 Herberth Stokes MD [address] [facility] [address] [facility] [place] [address] Gastroenterology 10/27/24 Hilton Palacios MD [address] [place] [address], [address] [place] [address] Neurology 02/06/25 Aaron Pringle MD [address] [place] [address] Drive [address] [facility] [place] [address] General Surgery 03/07/25 Lori Batista Registered Nurse 06/15/25 06/15/25 Neelima Raygoza 06/15/25 06/16/25 Pily Delaney Export ManagerMarket Research Manager 07/22/24 Elie Vicky [place] 12/29/24 documented as of this encounter
--- OUTSIDE RECORDS SUMMARY | 2025-07-20 15:53 | XMS_ITS | Encounter Summary ---
Author Organization [employer] Address [address] [place] [address] 7 [place] [address] Care Team Providers Care Flakeboard Line Tender Name Role Phone Shereen Latham MD Primary Care Provider [phone] Nupur Bullock PharmD Unavailable Sury Benitez Unavailable [phone] JuliusLester castellanosn OD Unavailable Li Grande MD Unavailable [phone] Anselmo Gates MD Unavailable Margaret Holman Unavailable Herberth Stokes MD Unavailable [phone] Hilton Palacios MD Unavailable [phone] Aaron Pringle MD Unavailable [phone] Lori Batista Unavailable [phone] Neelima Raygoza Unavailable Reason for Visit * Reason Onset Date Comments Medication Question 07/05/2024 Encounter Details Date Type Department Care Team ([facility] st Contact Info) Description 07/05/2024 Telephone [facility] MEDICINE 230 [place], [place] [phone] Shereen Latham MD 230 [place], [place] [phone] Medication Question Social History Tobacco Use Types [...] the past 12 months, has t he [employer], gas, oil or water [employer] threatened to shut off services in your [...] is no medication interaction. Contact pt at [phone] documented in this encounter Plan of Treatment Upcoming Encounters Date Type Department Care Team (Late st Contact Info) Description 08/07/2025 1:30 PM EDT Office Visit [facility] ADULT DENTAL [address] [place] [address] Paz-Connor, Isa, DDS [address] [place] [address] 09/13/2025 3:15 PM EST Office Visit [facility] MEDICINE [address] [place] [address] Shereen Latham MD [address] [place] [address] documented as of this encounter Visit Diagnoses Diagnosis Pain Generalized pain documented in this encounter Additional Health Concerns Assessment Noted Time PHQ-9 Depression Total Score: 13 08 024 4:53 PM EDT documented as of this encounter Care Teams Flakeboard Line Tender Relationship Specialty Start Date End Date Shereen Latham MD 230 [place] [address] PCP - General Family Medicine 11/02/18 Nupur Bullock, Pushpa 230 [place] [address] Pharmacist Internal Medicine 08/09/24 05/15/25 Sury Benitez [address] [place] [address] [address] [place] [address] Pulmonary Disease 09/27/24 Nirali Madrid OD 267 [place] [address] Optometry 10/27/24 Li Grande MD [address] [place] [address] Hematology and Oncology 10/27/24 Anselmo Gates MD 10 [facility] 203 [place] [address] Orthopaedic Surgery 10/27/24 Margaret Holamn 11 [facility] 3rd [place] [address] Cardiology 10/27/24 Herberth Stokes MD [address] [address] Gastroenterology 10/27/24 Hilton Palacios MD 15 [facility], [address] [place] [address] Neurology 02/06/25 Aaron Pringle MD 11 [facility] 3rd [place] [address] General Surgery 03/07/25 Lori Batista Registered Nurse 06/15/25 06/15/25 Neelima Raygoza 06/15/25 06/16/25 Pily Delaney Embroidery PatternmakerFire Manager 07/22/24 Elie Vicky [facility] Psychology 12/29/24 documented as of this encounter
--- OUTSIDE RECORDS SUMMARY | 2025-07-20 15:53 | XMS_ITS | Encounter Summary ---
Author Organization [employer] Address [address] [facility] 7t [place] [address] Care Team Providers Care Process Helper Name Role Phone Noa, Shereen NOLACSO Primary Care Provider [phone] Nupur Bullock PharmD Unavailable Sury Benitez Unavailable [phone] Julius, Nirali OD Unavailable Li Grande MD Unavailable [phone] Anselmo Gates MD Unavailable Margaret Holman Unavailable Herberth Stokes MD Unavailable [phone] Hilton Palacios MD Unavailable Aaron Pringle MD Unavailable [phone] Lori Batista Unavailable [phone] Neelima Raygoza Unavailable Encounter Details Date Type Department Care Team (Late st Contact Info) Description 04/26/2024 Orders Only [facility] MEDICINE 230 [place], [place] [phone] Junie Damon MD 230 [place], [place] [phone] Social History Tobacco Use Types Packs/Day Years [...] Encounters Date Type Department Care Team ([facility] st Contact Info) Description 08/07/2025 1:30 PM EDT Office Visit [facility] ADULT DENTAL 230 [place] [address] Paz-Connor, Isa, DDS 230 [place] [address] 09/13/2025 3:15 PM EST Office Visit [facility] MEDICINE 230 [place] [address] Shereen Latham MD 230 [place] [address] documented as of this encounter Visit Diagnoses Not on filedocumented in this encounter Additional Health Concerns Assessment Noted Time PHQ-9 Depression Total Score: 024 1:45 PM EDT documented as of this encounter Care Teams Process Helper Relationship Specialty Start Date End Date Shereen Latham MD 230 [place] [address] PCP - General Family Medicine 11/02/18 Nupur Bullock PharmD [address] [place] [address] Pharmacist Internal Medicine 08/09/24 05/15/25 Sury Benitez [address] [place] [address] Dr [facility] [address] [place] [address] Pulmonary Disease 09/27/24 Nirali Madrid OD [address] [place] [address] Optometry 10/27/24 Li Grande MD [address] [place] [address] Hematology and Oncology 10/27/24 Anselmo Gates MD [address] [facility] [address] [place] [address] Orthopaedic Surgery 10/27/24 Margaret Holman [address]rd [place] [address] Cardiology 10/27/24 Herberth Stokes MD [address] [facility] [address] 3[address] [place] [address] Gastroenterology 10/27/24 Hilton Palacios MD [address] [place] [address], [address] [place] [address] Neurology 02/06/25 Aaron Pringle MD [address] [place] [address] Drive [address] [facility] [place] [address] General Surgery 03/07/25 Lori Batista Registered Nurse 06/15/25 06/15/25 Neelima Raygoza 06/15/25 06/16/[address] DesignerLeadership Development Instructor 07/22/24 Elie Vicky [facility] 12/29/24 documented as of this encounter
--- OUTSIDE RECORDS SUMMARY | 2025-07-20 15:53 | XMS_ITS | Clinical Summary ---
Author Organization [employer] Address [address] 7 [place] [address] Care Team Providers Care Medical Insurance Claims Processor Name Role Phone Noa, Shereen NOLASCO Primary Care Provider [phone] Sury Benitez Unavailable [phone] Nirali Madrid OD Unavailable [phone] Li Grande MD Unavailable [phone] Anselmo Gates MD Unavailable Margaret Holman Unavailable Herberth Stokes MD Unavailable [phone] Hilton Palacios MD Unavailable Aaron Pringle MD Unavailable [phone] Allergies Active Allergy Reactions Criticality Noted [...] tablet 3 01/13/20 25 Active sodium chloride (Bystrom) 0.65 % nasal sprayIndication s:Nasal congestion Administer 1 spray into each nostril if needed for congestion. 15 mL 11 03/03/20 25 2025 Active cetirizine (ZyrTEC) 10 MG tabletIndicatio ns:Nasal [...] incidence of candidiasis. Do not swallow. Active Diclofenac Sodium 1 % gelIndications: Pain in both hands Apply 1 Application topically if needed each day (bullock pain). 50 g 07/20/20 25 Active spironolactone (Aldactone) 25 MG tabletIndicatio ns:Benign essential hypertension Take one half tablet by mouth once daily 2024 Discontinued carBAMazepine (TEGretol) 200 MG tablet TAKE 1/2 TABLET BY MOUTH TWICE DAILY IN THE MORNING AND EVENING 05/09/20 25 2024 Discontinued(M ed list cleanup (will not trigger notification to Pharmacy)) LORazepam (Ativan) 1 MG tablet TAKE 1 TABLET BY MOUTH EVERY DAY NEEDED FOR SEVERE ANXIETY 04/13/20 25 2024 Discontinued(M ed list cleanup (will not trigger notification to Pharmacy)) metoprolol succinate XL (Toprol-XL) 50 MG 24 hr tablet Take 50 mg by mouth at bedtime. 03/31/20 25 2024 Discontinued pregabalin (Lyrica) 25 MG capsule TAKE 3 CAPSULES BY MOUTH EVERY DAY AT BEDTIME 04/19/20 25 2024 Discontinued(M ed list cleanup (will not trigger notification to Pharmacy)) Advair HFA 115-21 MCG/ACT inhaler INHALE 2 PUFFS BY MOUTH EVERY TWELVE HOURS, RINSE MOUTH AFTER USING. 05/09/20 25 2024 Discontinued(M ed list cleanup (will not trigger notification to Pharmacy)) Tirzepatide-Rey ght Management (Zepbound) 2.5 MG/0.5ML solution auto-injectorIn dications:Obesi ty Inject 0.5 mL (2.5 mg) under the skin 1 (one) time per week. Start 2.5 mg weekly x 4 weeks, then increased to 5 mg x 4 weeks, then increase to 7.5 mg weekly 2 mL 05/24/20 25 2024 doxycycline (Vibra-Tabs) 100 MG tabletIndicatio ns:Right otitis media, unspecified otitis media type Take 1 tablet (100 mg) by mouth 2 times daily for 7 days. Take with a full glass of water and do not lie down for at least 30 minutes after. 14 tablet 06/16/20 25 2024 Active Problems Problem Noted Date Diagnosed Date [...] tachycardia and has a quality assurance monitor final in place. I recommended a left breast [...] tachycardia and has a quality assurance monitor final in place. I recommended a left breast [...] 04/21/24 with uric acid 7.9 -Seen by voice data communications engineer Dr. Bernstein 05/11/24 or evaluation of acute gout affecting left foot. -Pt admitted 07/25/24-07/2524 for swelling, pain, and warmth in the right knee. Patient had a low fever (100.3 F) and elevated WBC (20677 cells/uL), CRP, and ESR. Orthopedic surgery consulted [...] daily for prophylaxis -Seen by Dr. Clarke voice data communications engineer 04/19/25 Continue allopurinol 200 mg daily, plan to repeat acid level before next visit and increase allopurinol titrate allopurinol if needed to reach serum uric acid level <6 mg/dL(2020 [employer] guideline for the management [...] 04/21/24 with uric acid 7.9 -Seen by voice data communications engineer Dr. Bernstein 05/11/24 or evaluation of acute gout affecting left foot. -Pt admitted 07/25/24-07/2524 for swelling, pain, and warmth in the right knee. Patient had a low fever (100.3 F) and elevated WBC (49164 cells/uL), CRP, and ESR. Orthopedic surgery consulted [...] daily for prophylaxis -Seen by Dr. Clarke voice data communications engineer 04/19/25 Continue allopurinol 200 mg daily, plan to repeat acid level before next visit and increase allopurinol titrate allopurinol if needed to reach serum uric acid level <6 mg/dL(2020 [place] guideline for the management [...] 04/21/24 with uric acid 7.9 -Seen by voice data communications engineer Dr. Bernstein 05/11/24 or evaluation of acute gout affecting left foot. -Pt admitted 07/25/24-07/2524 for swelling, pain, and warmth in the right knee. Patient had a low fever (100.3 F) and elevated WBC (39268 cells/uL), CRP, and ESR. Orthopedic surgery consulted [...] reach serum uric acid level <6 mg/dL(2020 [place] [employer] guideline for the management [...] reach serum uric acid level <6 mg/dL(2020 [place] [employer] guideline for the management [...] 9:45 AM BY JOLIE PA [facility] [place]07/[place] 07/27/2024) Patient presented with swelling, pain, and warmth in the right knee. Patient had a low fever (100.3 F) and elevated WBC (61357 cells/uL), CRP, and ESR. Orthopedic surgery consulted [...] once daily for 5 days. [facility] (08/07/2024) Patient presented for [...] failure with reduced EF during admission to [facility] 06/22/24. - She was started on [...] effusion and indeterminate diastolic function -Seen by [facility] 08/01/24 : exercise nuclear stress [...] again until 07/2024. Last echo 06/23/2024 during [facility] heart failure admission, showed EF 55-60%, small [...] failure with reduced EF during admission to [facility] 06/22/24. - She was started on [...] effusion and indeterminate diastolic function -Seen by [facility] 08/01/24 : exercise nuclear stress [...] again until 07/2024. Last echo 06/23/2024 during [facility] heart failure admission, showed EF 55-60%, small [...] with reduced EF during recent admission to [facility] 06/22/24. Pt was volume overloaded therefore [...] with reduced EF during recent admission to [facility] 06/22/24. Pt was volume overloaded therefore [...] failure with reduced EF during admission to [facility] 06/22/24. - She was started on [...] effusion and indeterminate diastolic function -Seen by [facility] 08/01/24 : exercise nuclear stress [...] failure with reduced EF during admission to [facility] 06/22/24. - She was started on [...] effusion and indeterminate diastolic function -Seen by [facility] 08/01/24 : exercise nuclear stress [...] Complex care coordination 01/11/2024 Overview (01/11/2024): -Has DIGITAL PRODUCT MANAGER services with [employer] -She is applying [facility] 01/11/2024 -In our complex care management program -referred to [facility] on 01/04/2024 -Messaged sent to C3 housekeeper caregiver for assistance in care visits Assessment & Plan (06/22/2025 11:51 AM EDT): -Has DIGITAL PRODUCT MANAGER services with [employer] Martin is applying [facility] 01/11/2024 -In our complex care management program -referred to [facility] on 01/04/2024 -Messaged sent to C3 housekeeper caregiver for assistance in care visits Assessment & Plan (04/26/2025 4:15 PM EDT): -Has DIGITAL PRODUCT MANAGER services with [employer] Martin is applying [facility] 01/11/2024 -In our complex care management program -referred to [facility] on 01/04/2024 -Messaged sent to C3 housekeeper caregiver for assistance in care visits Assessment & Plan (12/29/2024 10:21 AM EST): -Has DIGITAL PRODUCT MANAGER services with [employer] Martin is applying [facility] 01/11/2024 -In our complex care management program -referred to [facility] on 01/04/2024 -Messaged sent to C3 housekeeper caregiver for assistance in care visits Assessment & Plan (08/24/2024 9:19 AM EDT): -Has DIGITAL PRODUCT MANAGER services with [employer] Martin is applying [facility] 01/11/2024 -In our complex care management program -referred to [facility] on 01/04/2024 -Messaged sent to C3 housekeeper caregiver for assistance in care visits Assessment & Plan (06/29/2024 4:06 PM EDT): -Has DIGITAL PRODUCT MANAGER services with [employer] Martin is applying [facility] 01/11/2024 -In our complex care management program -referred to [facility] on 01/04/2024 -Messaged sent to C3 housekeeper caregiver for assistance in care visits Assessment & Plan (01/11/2024 9:30 AM EDT): -Has DIGITAL PRODUCT MANAGER services with [employer] Martin is applying [facility] 01/11/2024 -In our complex care management program -referred to [facility] on 01/04/2024 -Messaged sent to C3 housekeeper caregiver for assistance in care visits Generalized anxiety [...] Pain Management team and will reconnect with [facility]. Information given to patient. PLAN: [...] , Patient to reach out to [facility] team as needed, and Patient to engage in OP therapy Provided patient with support in scheduling an Intake appt with [facility]. Anemia 07/29/2023 Overview (06/22/2025): Lab Results Component Value Date FERRITIN 144 03/02/2025 FERRITIN 180 11/08/2024 HGB 11.2 (L) 03/02/2025 HGB 11.4 (L) 12/29/2024 HGB 12.5 07/01/2022 HGB 12.2 01/23/2022 HEMATOCRIT 37.0 07/01/2022 HEMATOCRIT 36.0 01/23/2022 Pt does not want to take iron orally, she wants to go back to hematology for transfusion - Iron infusions ordered by Assisted Living Assistant DR. Grande - She recieved two sessions [...] for transfusion - Iron infusions ordered by Assisted Living Assistant DR. Grande - She recieved two sessions [...] for transfusion - Iron infusions ordered by Assisted Living Assistant DR. Grande - She recieved two sessions [...] for transfusion - Iron infusions ordered by Assisted Living Assistant DR. Grande - She recieved two sessions [...] for transfusion - Iron infusions ordered by Assisted Living Assistant DR. Grande - She recieved two sessions [...] pedro back by: Janett Ortega Person calling: [employer] Date:06/16/24 Time: 1218 Saw CDTM on 08/16/24 [...] pedro back by: Janett Ortega Person calling: [employer] Date:06/16/24 Time: 1218 Assessment & Plan (07/29/2023 4:34 PM EDT): Received magnesium IV in ER -Dose increased to TID - Recheck in 2 weeks Other specified health status 07/20/2023 Overview (06/22/2025): -next physical exam due after 06/22/26 -eye care facilitated by [facility] -dental home is [facility] care proxy filed 06/29/24 Assessment & Plan (06/22/2025 11:51 AM EDT): -next physical exam due after 06/22/26 -eye care facilitated by [facility] -dental home is [facility] care proxy filed 06/29/24 Assessment & Plan (06/29/2024 4:03 PM EDT): -next physical exam due after 06/29/25 -eye care facilitated by [facility] -dental home is [facility] -health care proxy given and filed [...] left. Scheduled nerve blocks Saw Ortho, Dr. Yajaira on 08/22/24, recommended weaning off of prednisone [...] up are normal. Most recent 04/2025 only OMNTY pos 1:80 RF negative There is moderate [...] had ultrasound sound for abdominal pain at [facility] revealing diffusely echogenic parenchyma with focal sparing around the gallbladder. No suspicious lesions. Impression showed liver likely representing hepatic steatosis and non- obstructing right kidney stone. Lab Results Component Value Date AST 03/02/2025 ALT 19 03/02/2025 ALT 22 02/12/2023 [...] had ultrasound sound for abdominal pain at [facility] revealing diffusely echogenic parenchyma with focal [...] had ultrasound sound for abdominal pain at [facility] revealing diffusely echogenic parenchyma with focal [...] had ultrasound sound for abdominal pain at [facility] revealing diffusely echogenic parenchyma with focal [...] had ultrasound sound for abdominal pain at [facility] revealing diffusely echogenic parenchyma with focal [...] had ultrasound sound for abdominal [place] [facility] Ultrasound showed diffusely echogenic parenchyma with focal sparing around the gallbladder. No suspicious lesions. Impression showed liver likely representing hepatic steatosis and non- obstructing right kidney stone. Benign essential hypertension 12/13/2021 Overview (06/22/2025): -Blood pressure is at goal -Continue lifestyle modifications -Continue current medications - Prescribed spironolactone (Aldactone) 25 MG tablet 11/09/24 -06/20/25 polytechnic teacher held spironolactone Assessment & Plan (06/22/2025 11:51 AM EDT): -Blood pressure is at goal -Continue lifestyle modifications -Continue current medications - Prescribed spironolactone (Aldactone) 25 MG tablet 11/09/24 -06/20/25 polytechnic teacher held spironolactone Assessment & Plan (04/26/2025 4:15 [...] [facility] but has [...] subsequently declined -Admitted for alcohol detox at [facility] 04/09/24 -reports she is currently not [...] been referred to [facility] for Support and Recovery but has [...] subsequently declined -Admitted for alcohol detox at [facility] 04/09/24 -reports she is currently not [...] been referred to [facility] for Support and Recovery but has [...] subsequently declined -Admitted for alcohol detox at [facility] 04/09/24 -reports she is currently not drinking 08/24/24. Encouraged to continue abstinence. -Vague about drinking, but seemingly still drinking 12/29/24 Assessment & Plan (08/24/2024 9:39 AM EDT): Longstanding, severe loesya drinking with hx admissions and withdrawal. Care complicated by difficulty accepting/comprehending risk. We have many times discussed risks including liver damage, liver failure and the risk of dying if she continues to drink. 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 -S/[facility] started Oct, completed 4 [...] tachycardia and has a quality assurance monitor final in place. I recommended a left breast [...] 1; 6 mm in size; margins negative. -note from Dr. Grande 07/17/25 Pathology results were reviewed in detail with the patient in the recommendation for a sentinel node biopsy made. -[place] biopsy been scheduled for 07/27. If oncotype comes back low, can can get an A.I. Return in a month for a follow-up. 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 -S/p RIGHT mastectomy with sentinel node bx by Dr. Prescott [facility] -Adriamycin/Cytoxan based chemotherapy started Oct, [...] tachycardia and has a quality assurance monitor final in place. I recommended a left breast [...] tumor 2.2 cm ER positive, NH positive, HER-2/PEREZ negative, two sentinel nodes negative. -S/p RIGHT [facility]aste[facility] with sent[facility]an [facility] started Oct, completed 4 [...] finding -[facility] core biopsy: -Minute focus of atypical ductal hyperplasia. -Focal gynecomastia-like hyperplasia. -Predominantly benign breast tissue and adipose. -Note from Dr. Pringle 03/16/25 revealed a minute focus of atypical ductal hyperplasia. Findings were discussed in detail and I recommended a wider excision to assure complete removal. She is currently being evaluated for tachycardia and has a quality assurance monitor final in place. I recommended a left breast [...] tumor 2.2 cm ER positive, NH positive, HER-2/PEREZ negative, two sentinel nodes negative. -S/p [facility] with [facility]Cytoxan based chemotherapy started Oct, [...] tumor 2.2 cm ER positive, NH positive, HER-2/PEREZ negative, two sentinel nodes negative. -S/p RIGHT maste[facility] with sent[facility]toxan [facility] started Oct, completed 4 [...] tumor 2.2 cm ER positive, NH positive, HER-2/PEREZ negative, two sentinel nodes negative. -S/p RIGHT mastectomy with sent[facility]toxan [facility] started Oct, completed 4 [...] tumor 2.2 cm ER positive, NH positive, HER-2/PEREZ negative, two sentinel nodes negative. -S/p RIGHT mastectomy with sentinel node [facility]an [facility] started Oct, completed 4 [...] tumor 2.2 cm ER positive, NH positive, HER-2/PEREZ negative, two sentinel nodes negative. -S/p RIGHT mastectomy with sentinel [facility]Cytoxan [facility] started Oct, completed 4 [...] tumor 2.2 cm ER positive, NH positive, HER-2/PEREZ negative, two sentinel nodes negative. -S/p RIGHT mastectomy with sentinel node [facility] -[facility]/Cytoxan based chemotherapy started Oct, completed 4 [...] tumor 2.2 cm ER positive, NH positive, HER-2/PEREZ negative, two sentinel nodes negative. -S/p RIGHT mastectomy with sentinel node [facility]Cytoxan based chemotherapy started Oct, completed 4 [...] tumor 2.2 cm ER positive, NH positive, HER-2/PEREZ negative, two sentinel nodes negative. -S/p RIGHT mastectomy with sentinel node [facility]Cytoxan [facility] chemotherapy started Oct, completed 4 [...] tumor 2.2 cm ER positive, NH positive, HER-2/PEREZ negative, two sentinel nodes negative. -S/p RIGHT mastectomy with sentinel node [facility]an [facility] started Oct, completed 4 [...] tumor 2.2 cm ER positive, NH positive, HER-2/PREEZ negative, two sentinel nodes negative. -S/p RIGHT mastectomy with sentinel [facility]Cytoxan based [facility] started Oct, completed 4 [...] Overview (06/22/2025): Lab Results Component Value Date [id number] 79.4 05/15/2025 [id number] 58.3 06/16/2024 [id number] 106.4 01/04/2024 Assessment & Plan (04/26/2025 4:15 PM EDT): Lab Results Component Value Date [id number] 58.3 06/16/2024 [id number] 106.4 01/04/2024 [id number] 76.8 09/22/2023 Orders: Vitamin D, 25-Hydroxy, Total, Immunoassay; Future Assessment & Plan (06/29/2024 3:39 PM EDT): Lab Results Component Value Date [id number] 58.3 06/16/2024 [id number] 106.4 01/04/2024 [id number] 76.8 09/22/2023 Assessment & Plan (12/14/2023 12:09 PM EST): Lab Results Component Value Date [id number] 76.8 09/22/2023 -Labs ordered for further evaluation: Vitmain D, 25-hydroxy, Total, Immunoassay. 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 Per Dr. Krish Loomis's note from [facility] [employer], pt was due for repeat colposcopy in [...] Per Dr. Krish Loomis's note from [facility], pt was due for repeat colposcopy in [...] Per Dr. Krish Loomis's note from [facility], pt was due for repeat colposcopy in [...] Per Dr. Krish Loomis's note from [facility], pt was due for repeat colposcopy in [...] Health Integration Plan Internal Follow up with [facility] Patient Self Plan Patient to utilize skills provided in intervention , Patient to reach out to [facility] team as needed, Patient to reach out to [facility] as needed, and will contact [facility] Intake number to connect with half-way OP services, and psychiatrist. Rule Out Diagnoses: [...] as pharmacomtherapy, [facility] smoking cessation group, and [facility] pharmacy smoking cessation clinic Discussed [...] as pharmacomtherapy, [facility] smoking cessation group, and [facility] pharmacy smoking cessation clinic Discussed [...] as pharmacomtherapy, [facility] smoking cessation group, and [facility] pharmacy smoking cessation clinic Discussed [...] as pharmacomtherapy, [facility] smoking cessation group, and [facility] pharmacy smoking cessation clinic Discussed [...] as pharmacomtherapy, [facility] smoking cessation group, and [facility] pharmacy smoking cessation clinic Discussed [...] as pharmacomtherapy, [facility] smoking cessation group, and [facility] pharmacy smoking cessation clinic Discussed [...] of breath) 06/29/2024 Overview (12/29/2024): -Followed by [facility] with Sury Benitez NP -02/2024 [...] Plan (12/29/2024 11:03 AM EST): -Followed by [facility] with Sury Benitez NP -02/2024 [...] if needed. -pt reports she saw her truck driver helper and is continuing management with them. . Assessment & Plan (07/13/2024 2:15 PM EDT): -referred to pulmonology 06/29/24 -Pt reports she has appt to see truck driver helper 08/01/24 Assessment & Plan (06/29/2024 4:49 [...] flare 05/11/2024 12/29/2024 Overview (07/13/2024): Seen by voice data communications engineer Dr. Bernstein 05/11/24 or evaluation of acute [...] Plan (07/13/2024 2:21 PM EDT): Seen by voice data communications engineer Dr. Bernstein 05/11/24 or evaluation of acute [...] EDT): Patient requesting a Physical for her DIGITAL PRODUCT MANAGER hours to be re-instated. On exam today, her vitals are stable and her exam seems unchanged from previous one. Work up in progress for her c/o bilateral foot pain Hospital discharge follow-up 06/18/2023 07/20/2023 Assessment & Plan (07/14/2023 10:23 AM EDT): Patient here for a HDF. She was [place] [facility] [place] [facility] . She presented [...] within 10 minutes, transfer completed [facility] called with expect Hypertension 05/26/2023 12/14/2023 Assessment & Plan (05/26/2023 12:12 PM EDT): Not controlled today Pt says she took her Lisinopril and chlorthalidone this morning Hypokalemia 12/09/2022 10/27/2024 Hyperaldosteronism 11/16/2022 3 Overview (11/16/2022): Seen by [facility] 04/03/2022. Initially seen 12/2021 for hyperaldosteronism. Labs [facility] 10/2021 aldosterone 8, plasma renin 0.11, aldosterone/renin 72.7. She was likely on spironolactone and lisinopril at time of labs. Advise no spironolactone for 6 weeks and recheck renin aldosterone levels with renal panel and magnesium in wind turbine machinist. Assessment & Plan (11/16/2022 10:55 AM EST): Seen by [facility] 04/03/2022. Initially seen 12/2021 for hyperaldosteronism. Labs [facility] 10/2021 aldosterone 8, plasma renin 0.11, aldosterone/renin 72.7. She was likely on spironolactone and lisinopril at time of labs. Advise no spironolactone for 6 weeks and recheck renin aldosterone levels with renal panel and magnesium in wind turbine machinist. Generalized pain 09/14/2014 06/08/2025 Anxiety 04/19/2014 01/28/2024 Polysubstance abuse 04/19/2014 04/04/20 25 Encounters Date Type Department Care Team Description 07/20/2025 1:15 PM EDT Office Visit [address] [address] Junie Padron MD Pain in both hands (Primary Dx) 07/20/2025 Travel 07/02/[address] [address] Shereen Latham MD Alcohol abuse 06/28/2025 Orders Only [facility] External Provider, [facility] Bilateral malignant neoplasm of breast in female, unspecified estrogen receptor status, unspecified site of breast ([facility]/HCC) (Primary Dx); Abnormal mammogram 06/23/[address] [address] Shereen Latham MD 06/22/2025 11:15 AM EDT Office Visit [address] [address] Shereen Latham MD Trigger finger, unspecified finger, unspecified laterality (Primary Dx); Benign essential hypertension; Mild intermittent reactive airway disease without complication; Atrial tachycardia (CMS/HCC); Heart failure with preserved ejection fraction, unspecified HF chronicity ([facility]/HCC); Abnormal mammogram; History of right breast cancer; [...] specified health status 06/22/2025 Travel 06/21/[address] [address] Shereen Latham MD chartprep 06/16/2025 10:15 AM EDT Office Visit [address] [address] De Jesus, Naomi, ANP Right otitis media, unspecified otitis media type (Primary Dx); Heart failure with preserved ejection fraction, unspecified HF chronicity (CMS/HCC); Shortness of breath; Nasal congestion 06/16/[address] [facility] ADULT DENTAL [address] [place] [address] Isa De La Rosa, DDS active requested appt 06/16/2025 Patient Outreach [facility] [address] [place] [address] Shereen Latham MD Care Coordination (Communication to PT assigned CP Coordinator) 06/16/2025 Travel 06/15/[address] [address] Shereen Latham MD ER Follow-up 06/15/2025 Patient Outreach [facility] [address] [place] [address] Shereen Latham MD Care Coordination ([facility] ED Follow Up) 06/15/2025 Patient Outreach [facility] [address] [place] [address] Shereen Latham MD Care Coordination (CP Care Coordination Chart Review) 06/15/2025 Patient Outreach [address] [address] Shereen Latham MD 06/15/2025 Patient Outreach [address] [address] Shereen Latham MD 06/14/2025 2:20 PM EDT Office Visit [facility] [address] [address] Junie Damon MD Shortness of breath; Precordial pain 06/14/2025 Travel 06/14/2025 Orders Only [address] [address] Shereen Latham MD Sebaceous cyst of labia (Primary Dx) 06/09/[address] [address] Shereen Latham MD Referral 06/09/[address] [facility] [address] [place] [address] Shereen Latham MD Pain 06/07/2025 6:00 PM EDT [facility] [address] [address] Tari Chance NP Cough in adult patient (Primary Dx); Viral illness; Elevated blood pressure reading in office with diagnosis of hypertension 06/07/2025 Travel 06/07/[address] [address] Shereen Latham MD Nurse Triage 06/02/[address] [address] Shereen Latham MD Referral 06/01/2025 Orders Only GENERIC EXTERNAL DATA DEPARTMENT Provider, Generic External Data History of right breast cancer (Primary Dx); Abnormal mammogram 05/24/2025 11:30 AM EDT Office Visit [address] [address] Shereen Latham MD Class 1 obesity due to excess calories with serious comorbidity and body mass index (BMI) of 31.0 to 31.9 in adult (Primary Dx); Dietary counseling; Exercise counseling; Ductal hyperplasia of breast; Callus of foot; Pain in both feet 05/24/2025 Travel 05/23/[address] [address] Shereen Latham MD CHART PREP 05/18/2025 Orders Only GENERIC EXTERNAL DATA DEPARTMENT Provider, Generic External Data History of right breast cancer (Primary Dx); Abnormal mammogram 05/15/2025 Travel 05/03/[address] [facility] [address] [place] [address] Shereen Latham MD Benign essential hypertension 05/02/[address] [facility] [address] [place] [address] Shereen Latham MD Pain; Benign essential hypertension 04/26/2025 9:30 AM EDT Office Visit [facility] [address] [place] [address] Shereen Latham MD Abnormal mammogram (Primary Dx); [...] unspecified iron deficiency anemia type 04/26/[address] [address] Shereen Latham MD Medication Question 04/26/2025 Travel 04/25/[address] [address] Shereen Latham MD CHART PREP 04/25/[address] [address] Shereen Latham MD Appointment Request 04/19/2025 Orders Only GENERIC EXTERNAL DATA DEPARTMENT Provider, Generic External Data History of right breast cancer (Primary Dx) from Last 3 Months Immunizations Immunization Administration [...] Mass Index 30.98 07/20/2025 2:10 PM EDT Plan of Treatment Upcoming Encounters Date Type Department Care Team (Late st Contact Info) Description 08/07/2025 1:30 PM EDT Office Visit [facility] ADULT DENTAL [address] [place] [address] Isa De La Rosa DDS [address] [place] [address] 09/13/2025 3:15 PM EST Office Visit [facility] [address] [place] [address] Shereen Latham MD [address] [place] [address] Health Maintenance Due Date Last Done Comments CT Colonography 1975 FIT 1975 Sigmoidoscopy 1975 DTaP/Tdap/Td Vaccines (4 - Tdap) 08/11/2020 08/10/2020, 07/16/2007, 07/05/1981, Additional history exists Zoster Vaccines (1 of 2) 2023 FOBT 08/27/2024 08/27/2023 Diagnostic Breast Imaging 07/02/20252024, 05/18/2025, 04/20/2025, Additional history exists Mammogram 07/02/2025 06/01/2025, 05/02, 04/20/2025, Additional history exists COVID-19 Vaccine (2 - 2024- season) 2025 02/09/2021 Influenza Vaccine (#1) 2025 09/06/2015 Dental Oral Exam 09/30/2025 03/29/2025, , 07/06/2019 Dental Prophylaxis 09/30/2025 03/29/2025, 1 11/28/2023, 08/16/2021, Additional history exists Depression Monitoring 11/24/2025 05/24/2025, 025 SDOH Screening 12/29/2025 12/29/2024 Alcohol/Substance Use Screening 03/02/2026 03/02/2025 Dental X-Ray: Bitewings 03/30/2026 03/29/20 25, 06/17/2024, 03/31/2024, Additional history exists Disability Screening 04/26/2026 04/26/2025 Family Planning (PISQ) 06/22/2026 06/22/2025 Colonoscopy 07/11/2026 07/11/2024 Colorectal Cancer Screening 07/11/2026 Tobacco Screening 07/20/2026 07/20/2025 FIT DNA/Cologuard 08/27/2026 08/27/2023 Dental X-Ray: Full Mouth 03/30/2028 03/29/2025, 09/01/2019 Lipid Panel 12/29/2029 12/29/2024, 06/02, 09/22/2023, Additional [...] 08/27/2023 11:24 AM EDT Colon cancer screening [facility] HISTORICAL HPV MRNA E6/E7 Routine 08/12/2018 10:57 AM EDT from Last 3 Months or Most Recently Relevant to Health Maintenance Results * Gross and Microscopic Level 5 (06/28/2025 10:55 AM EDT) 06/28/2025 10:5 5 AM EDT 06/28/2025 11:08 AM EDT [facility] - 07/05/2025 2:23 PM EDT ----- ------- Name: Azra Cast Age/Sex: 49/F : 1975 Unit#: [id number] Attend Dr: Aaron Pringle MD Re06/28/25 Status: [facility] Location: [facility] Disch: ----- ------- SPEC : [id number] RECD: 06/28/258 STATUS: CRAIG ANDERSEN NUM: [id number] MAYA: 06/28/25-[address]: Aaron Pringle MD ENTERED: 06/28/25-1110 SP TYPE: Surgical OTHR DR: Shereen Latham MD ORDERED: Gross Micro L5, ER, NH, IOC, IHC, Add. immunos, IHC ER/NH/Her2N/4, Ki-67, p63, SMM, [id number] Diagnosis Breast, left, lumpectomy: - Invasive ductal [...] from posterior Lymph nodes Number examined: 0 Wardell nodes: 0 Axillary nodes: 0 CONTINUED ON NEXT PAGE ----- ------- Name: Azra Cast Age/Sex: 49/F : 1975 [id number] Unit#: [id number] Attend Dr: Aaron Pringle MD Re06/28/25 Status: [facility] Location: [facility] Disch: ----- ------- SPEC : [id number] RECD: 06/28/25 STATUS: CRAIG ANDERSEN NUM: [id number] MAYA: 06/28/25 [facility] DR: Aaron Pringle MD ENTERED: 06/28/25-1110 SP TYPE: Surgical OTHR DR: Shereen Latham MD ORDERED: Gross Micro L5, ER, NH, IOC, IHC, Add. immunos, IHC ER/NH/Her2N/4, Ki-67, p63, SMM, [id number] Diagnosis (Continued) Number involved: N/A With macrometastases: N/A With micrometastases: N/A With isolated tumor cells: N/A Extranodal extension: N/A Size of largest met. deposit: N/A Treatment effect Breast: Not identified Lymph nodes: Not identified TNM: pT1b NX Ancillary studies: ER positive, NH positive, HER2 negative (0), low proliferation Clinical [...] Azra Cast Age/Sex: 49/F : 1975 Unit#: [id number] Attend Dr: Aaron Pringle MD Re06/28/25 Status: [facility] Location: [facility] Disch: ----- ------- SPEC : [id number] RECD: 06/28/25-1107 STATUS: CRAIG ANDERSEN NUM: [id number] MAYA: 06/28/25-1055 [facility] DR: Aaron Pringle MD ENTERED: 06/28/25-1110 SP TYPE: Surgical OTHR DR: Shereen Latham MD ORDERED: Gross Micro L5, ER, NH, IOC, IHC, Add. immunos, IHC ER/NH/Her2N/4, Ki-67, p63, SMM, [id number] Gross Description (Continued) fatty parenchyma is otherwise unremarkable without additional discrete abnormality. Grain Combine Driver sections to include entire area of ill-defined [...] Envision+ Dual Link System-HRP. Progesterone receptor: Clone OlN921; TapBlaze Mach 4 detection system. Her-2/perez immunohistochemistry performed in accordance with ASCO/CAP recommendations (2007) and update (2013). Hercep Test Detection system: Polymer type Scoring criteria: For ER/NH and Her-2/perez: All internal (if present) and external controls react appropriately. CONTINUED ON NEXT PAGE ----- ------- Name: Azra Cast Age/Sex: 49/F : 1975 [id number] Unit#: [id number] Attend Dr: Aaron Pringle MD Re06/28/25 Status: [facility] Location: [facility] Disch: ----- ------- SPEC : [id number] RECD: 06/28/25 STATUS: CRAIG ANDERSEN NUM: [id number] MAYA: 06/28/25-[address]: Aaron Pringle MD ENTERED: 06/28/25-1111 SP TYPE: Surgical OTHR DR: Shereen Latham MD ORDERED: Gross Micro L5, ER, NH, IOC, IHC, Add. immunos, IHC ER/NH/Her2N/4, Ki-67, p63, SMM, [id number] Gross Description (Continued) ER and NH immunostains are scored as Positive (> 10% [...] Arch of Pathol Lab Med, 142 2018: 1217-2058. Marce EDMONDS, Margot VASQUEZ, et al. Estrogen and Progesterone Receptor Testing in Breast Cancer: ASCO/CAP Guideline Update. Arch of Pathol Lab Med, 144 2020: 545-563. Thanh Perry, Cristel P, et al. Adjuvant abemaciclib combined with endocrine therapy for high- risk early breast cancer: updated efficacy and Ki-67 analysis from the [facility] study. Jennie Oncol. 2020;32(12):9483-1963. This case was reviewed intradepartmentally; results were communicated to Dr. Pringle on 07/05/2025. Special studies ordered and performed: Immunostains for ER, NH, HER2, Ki 67, p63 and smooth muscle myosin IHC S/NG Disclaimer NOTE: Unless otherwise stated, all tissue is formalin-fixed and paraffin-embedded. Some or all of the immunohistochemical tests reported herein may have been developed and their performance characteristics determined by [facility]. They have not been cleared [...] Azra Cast Age/Sex: 49/F : 1975 Unit#: [id number] Attend Dr: Aaron Pringle MD Re06/28/25 Status: [facility] Location: [facility] Disch: ----- ------- SPEC : [id number] RECD: 06/28/25 STATUS: CRAIG ANDERSEN NUM: [id number] MAYA: 06/28/25-1055 [facility] DR: Aaron Pringle MD ENTERED: 06/28/25-1111 SP TYPE: Surgical OTHR DR: Shereen Latham MD ORDERED: Gross Micro L5, ER, NH, IOC, IHC, Add. immunos, IHC ER/NH/Her2N/4, Ki-67, p63, SMM, OFT2IDM Copies To: Shereen Latham MD [address] [phone] Aaron Pringle MD [facility] [address] [place] [address] [phone] ----- ------- Signed (signature on file) Beck Whatley MD 07/05/25 1423 ----- ------- END OF REPORT us Generic External Data Provider LAB BLOOD ORDERAB LES Final Result [facility] [address] [place] [address] [phone] * BI MM SURGICAL SPECIMEN (06/28/2025 10:13 AM EDT) Anatomical Region Laterality Modality Breast Bilateral Mammography 06/28/2025 10:1 3 AM EDT Narrative 06/28/2025 11:09 AM EDT [address] [id number] Mammography Report Signed Patient: Azra Cast MR#: [id number] : 1975 Acct:[id number] Age/Sex: 49 / F ADM Date: 06/28/25 Loc: [facility]ALY Attending Dr: Aaron Pringle MD Ordering Physician: Araon Pringle MD Results: Date of Service: 06/28/25 Follow Up: Procedure(s): MM surgical specimen Accession Number(s): [id number] cc: Shereen Latham MD; Aaron Pringle MD Single left breast specimen radiograph demonstrates a tag with the barbell clip and a second tag with a top hat clip. Electronically signed by: Cara Rodriges DO 06/28/2025 11:07 AM EDT Dictated By: Cara Rodriges DO Signed By: <Electronically signed by Cara Rodriges DO in OV> 06/28/25 1107 DD/ 1013 TD/TT: 06/28/25 1104 Food Processor: Procedure Note Donotuseinterpreter, Image - 06/28/[address] [address] [id number] Mammography Report Signed Patient: Nicolas CastR#: [id number] : 1975Acct:[id number] Age/Sex: 49 / FADM Date: 06/28/25 Loc: SONA Attending Dr: Aaron Pringle MD Ordering Physician: Aaron Pringleesults: Date of Service: 06/28/25Follow Up: Procedure(s): MM surgical specimen Accession Number(s): [id number] cc: Shereen Latham MD; Aaron Pringle MD Single left breast specimen radiograph demonstrates a tag with the barbell clip and a second tag with a top hat clip. Electronically signed by: Cara Rodriges DO 06/28/2025 11:07 AM EDT RP Dictated By: Cara Rodriges DO Signed By: <Electronically signed by Cara Rodriges DO in OV> 06/28/25 1107 DD/ 1013 TD/TT: 06/28/25 1104 Food Processor: [facility] External Provider IMG BI PROCEDURES Edited Result - Final * High Sensitivity Troponin I (06/14/2025 5:50 PM EDT) TROPONIN I HIGH SENSITIVITY 12.4 <3.5 - 17.0 ng/L [facility] Comment:The [place] high sens itivity Troponin-I results should beused in conjunction with other diagnostic information suchas ECG, clinical observations and information, and patientsymptoms to aid in the diagnosis of NM. 06/14/2025 5:50 PM EDT 06/14/2025 5:54 PM EDT Generic External Data Provider LAB BLOOD ORDERAB LES Final Result [facility] [address] [place] [phone] * XR Chest 1 View (06/14/2025 12:37 PM EDT) Anatomical Region Laterality Modality Chest Radiographic Celina ging 06/14/2025 12:3 7 PM EDT Narrative 06/14/2025 1:54 PM EDT [address] [address] XRay Report Signed Patient: Azra Cast MR#: [id number] : 1975 Acct:[id number] Age/Sex: 49 / F ADM Date: 06/14/25 Loc: .ED Attending Dr: Ordering Physician: Corrina Badillo PA-C Date of Service: 06/14/25 Procedure(s): XR chest 1V Accession Number(s): [id number] cc: Shereen Latham MD; Corrina Badillo PA-C [...] 06/14/25 1351 DD/ 1237 TD/TT: 06/14/25 1348 Food Processor: Procedure Note Donotuseinterpreter, Image - 06/14/2025 [place] [address] XRay Report Signed Patient: Maged Cast#: [id number] : 1975Acct:[id number] Age/Sex: 49 / FADM Date: 06/14/25 Loc: .ED Attending Dr: Ordering Physician: Corrina Badillo PA-C Date of Service: 06/14/25 Procedure(s): XR chest 1V Accession Number(s): [id number] cc: Shereen Latham MD; Corrina Badillo PA-C [...] 06/14/25 1351 DD/ 1237 TD/TT: 06/14/25 1348 Food Processor: Result [facility] External Provider IMG XR PROCEDURES Final Result * ECG 12 lead (06/14/2025 12:22 PM EDT) Narrative Junie Damon MD - 06/14/2025 12:22 PM EDT Sinus tachycardia Qtc [address] segment changes Result [facility] Junie Upton MD ECG ORDERABLES Final Result * POCT Rapid Influenza A OERLLANA ID NOW (06/14/2025 12:00 PM EDT) Only the most recent of2 resultswithin the time period is included. Influenza A Negative Negative, Indeterminate [facility] QC Media Lot # [id number] [facility] Lot# Expiration Date [facility] Swab 06/14/2025 12:0 0 PM EDT Result [facility] Junie Upton MD POINT OF CARE TEST EN TER/EDIT ORDERABLES Final Result [facility] [address] [place] [phone] * POCT Rapid Influenza B ORELLANA ID NOW (06/14/2025 11:57 AM EDT) Only the most recent of2 resultswithin the time period is included. Influenza B Negative Negative, Indeterminate [facility] QC Media Lot # [id number] [facility] Lot# Expiration Date [facility] Swab 06/14/2025 11:5 7 AM EDT Result [facility] Junie Upton MD POINT OF CARE TEST EN TER/EDIT ORDERABLES Final Result [facility] [address] [place] [phone] [phone] * POCT Rapid Covid-19 BinaxNOW (06/14/2025 [...] AM EDT Narrative 06/14/2025 11:42 AM EDT [facility] [address] [place] [address] Mammography Report Signed Patient: Azra Cast MR#: [id number] : 1975 Acct:[id number] Age/Sex: 49 / F ADM Date: 06/14/25 Loc: HO.MAMMO Attending Dr: Aaron Pringle MD Ordering Physician: Aaron Pringle MD Results: Date of Service: 06/14/25 Follow Up: Procedure(s): MM RF Tag device add Accession Number(s): [id number] cc: Shereen Latham MD; Aaron Pringle MD [...] ANESTHESIA: carbonated lidocaine 1%: . LOCALIZATION SYSTEM: -Springpad LOCallizer Wire-Free Guidance System with 12g needle applicator. -Length: 7 cm. 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 TARGET: Top hat clip. ANESTHESIA: carbonated lidocaine . LOCALIZATION SYSTEM: -Kaleidoscopegic LOCallizer Wire-Free Guidance System with 12g needle applicator. -Length: 7 cm. -RADIOFREQUENCY TAG: ID # [id number] RF Tag ID confirmed with LOCalizer Guidance [...] 06/14/25 1139 DD/ 1000 TD/TT: 06/14/25 1100 Food Processor: Procedure Note Donotuseinterpreter, Image - 06/14/2025 [facility] [address] [place] [address] Mammography Report Signed Patient: Maged Cast#: [id number] : 1975Acct:[id number] Age/Sex: 49 / FADM Date: 06/14/25 Loc: CHICHIO Attending Dr: Aaron Pringle MD Ordering Physician: Aaron Pringleesults: Date of Service: 06/14/25Follow Up: Procedure(s): MM RF Tag device add Accession Number(s): [id number] cc: Shereen Latham MD; Aaron Pringle MD [...] ANESTHESIA: carbonated lidocaine 1%: . LOCALIZATION SYSTEM: -Springpad LOCallizer Wire-Free Guidance System with 12g needle applicator. -Length: 7 cm. 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 TARGET: Top hat clip. ANESTHESIA: carbonated lidocaine . LOCALIZATION SYSTEM: -Springpad LOCallizer Wire-Free Guidance System with 12g needle applicator. -Length: 7 cm. -RADIOFREQUENCY TAG: ID # [id number] RF Tag ID confirmed with LOCalizer Guidance [...] 06/14/25 1139 DD/ 1000 TD/TT: 06/14/25 1100 Food Processor: [facility] External Provider IMG BI PROCEDURES Final Result * MM RF Tag Device Left (06/14/2025 10:00 AM EDT) Anatomical Region Laterality Modality Breast Left Mammography 06/14/2025 10:0 0 AM EDT Narrative 06/14/2025 11:42 AM EDT [facility] [address] [place] [address] Mammography Report Signed Patient: Azra Cast MR#: [id number] : 1975 Acct:[id number] Age/Sex: 49 / F ADM Date: 06/14/25 Loc: MAMMYair Attending Dr: Aaron Pringle MD Ordering Physician: Aaron Pringle MD Results: Date of Service: 06/14/25 Follow Up: Procedure(s): MM RF Tag device LT Accession Number(s): [id number] cc: Shereen Lahtam MD; Aaron Pringle MD EXAMINATION: MM MAMMOGRAM [...] ANESTHESIA: carbonated lidocaine 1%: . LOCALIZATION SYSTEM: -Kaleidoscopegic LOCallizer Wire-Free Guidance System with 12g needle applicator. -Length: 7 cm. 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 TARGET: Top hat clip. ANESTHESIA: carbonated lidocaine . LOCALIZATION SYSTEM: -Springpad LOCallizer Wire-Free Guidance System with 12g needle applicator. -Length: 7 cm. -RADIOFREQUENCY TAG: ID # [id number] RF Tag ID confirmed with LOCalizer Guidance [...] 06/14/25 1139 DD/ 1000 TD/TT: 06/14/25 1100 Food Processor: Procedure Note Donotuseinterpreter, Image - 06/14/2025 [facility] [address] [place], [place] [address] Mammography Report Signed Patient: Maged Cast#: [id number] : 1975Acct:[id number] Age/Sex: 49 / FADM Date: 06/14/25 Loc: ALBERTO Attending Dr: Aaron Pringle MD Ordering Physician: Aaron Pringleults: Date of Service: 06/14/25Follow Up: Procedure(s): MM RF Tag device LT Accession Number(s): [id number] cc: Shereen Latham MD; Aaron Pringle MD [...] ANESTHESIA: carbonated lidocaine 1%: . LOCALIZATION SYSTEM: -Kaleidoscopegic LOCallizer Wire-Free Guidance System with 12g needle applicator. -Length: 7 cm. 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 TARGET: Top hat clip. ANESTHESIA: carbonated lidocaine . LOCALIZATION SYSTEM: -Springpad LOCallizer Wire-Free Guidance System with 12g needle applicator. -Length: 7 cm. -RADIOFREQUENCY TAG: ID # [id number] RF Tag ID confirmed with LOCalizer Guidance [...] 06/14/25 1139 DD/ 1000 TD/TT: 06/14/25 1100 Food Processor: [facility] External Provider IMG BI PROCEDURES Final Result * BI Mammogram Diagnostic Tomosynthesis Left (06/01/2025 11:25 AM EDT) Only the most recent of2 resultswithin the time period is included. Anatomical Region Laterality Modality Breast Left Mammography 06/01/2025 11:2 5 AM EDT Narrative 06/01/2025 1:24 PM EDT [address] [address] [phone] Mammography Report Signed with Addenda Patient: Azra Cast MR#: [id number] : 1975 Acct:[id number] Age/Sex: 49 / F ADM Date: 06/01/25 Loc: HO.MRI Attending Dr: Aaron Pringle MD Ordering Physician: Aaron Pringle MD Results: 1Nega tive Date of Service: 06/01/25 Follow Up: 1 Year From Orig inal Mammogram Procedure(s): MM tomosynthesis diagnostic LT Accession Number(s): [id number] cc: Shereen Latham MD; Aaron Pringle MD [...] and with use of Gadavist gadolinium contrast. uBeam introducer localization system is used with grid. LESION: Retroareolar region middle depth. LOCAL ANESTHESIA: 6 mL 1% lidocaine; 10 mL 1% lidocaine with epinephrine. NEEDLE: tok tok tok 9-gauge vacuum assisted core biopsy device. APPROACH: [...] 06/01/25 1321 DD/ 24 TD/TT: 06/01/25 115 Food Processor: Procedure Note Donotuseinterpreter, Image - 06/07/[address] [address] [id number] Mammography Report Signed with Addenda Patient: Maged Cast#: [id number] : 1975Acct:[id number] Age/Sex: 49 / FADM Date: 06/01/25 Loc: HO.MRI Attending Dr: Aaron Pringle MD Ordering Physician: Aaron Pringle MDResults: 1Nega tive Date of Service: 06/01/25Follow Up: 1 Year From [facility] Mammogram Procedure(s): MM tomosynthesis diagnostic LT Accession Number(s): [id number] cc: Shereen Latham MD; Aaron Pringle MD [...] and with use of Gadavist gadolinium contrast. uBeam introducer localization system is used with grid. LESION: Retroareolar region middle depth. LOCAL ANESTHESIA: 6 mL 1% lidocaine; 10 mL 1% lidocaine with epinephrine. NEEDLE: tok tok tok 9-gauge vacuum assisted core biopsy device. APPROACH: [...] will be issued. Electronically signed by: Cara Rodrgies DO 06/01/2025 01:21 PM EDT Dictated By: Cara Rodriges DO Signed By: <Electronically signed by Cara Rodriges DO in OV> 06/01/25 1321 DD/ 1125 TD/TT: 06/01/25 1150 Food Processor: [facility] External Provider IMG BI PROCEDURES Edited Result - Final * Hematoxylin and Eosin Stain (06/01/2025 10:53 AM EDT) Only the most recent of2 resultswithin the time period is included. 06/01/2025 10:5 3 AM EDT 06/01/2025 11:23 AM EDT [facility] - 06/02/2025 3:10 PM EDT ----- ------- Name: Azra Cast Age/Sex: 49/F : 1975 Unit#: [id number] Attend Dr: Aaron Pringle MD Re06/01/25 Status: DEP REF Location: .MRI Disch: ----- ------- SPEC : [id number] RECD: 06/01/25 STATUS: CRAIG ANDERSEN NUM: [id number] MAYA: 06/01/25 [facility] DR: Aaron Pringle MD ENTERED: 06/01/25 SP [...] developed and their performance characteristics determined by [facility]. They have not been cleared or approved by the U.S. Food and Drug Administration (FDA). However, the FDA has determined that such clearance or approval is not necessary. This laboratory is certified under the Clinical Laboratory Improvement Amendments of 1988 (CLIA) as qualified to perform high complexity clinical laboratory testing. Copies To: Shereen Latham MD [address] [address] CONTINUED ON NEXT PAGE ----- ------- Name: Azra Cast Age/Sex: 49/F : 1975 Unit#: [id number] Attend Dr: Aaron Pringle MD Re06/01/25 Status: DEP REF Location: .MRI Disch: ----- ------- SPEC : [id number] RECD: 06/01/25 STATUS: CRAIG ANDERSEN NUM: [id number] MAYA: 06/01/25 [facility] DR: Aaron Pringle MD ENTERED: 06/01/25 SP TYPE: Surgical OTHR DR: Shereen Latham MD ORDERED: HE Stain/2, Gross Micro L4 COMMENTS: As per the specimen requisition slip the specimen is collected at 1053 and placed in formalin at 1100. Copies To: (Continued) Aaron Pringle MD [facility] [address] [place] [phone] ----- ------- Signed (signature on file) Beck Whatley MD 06/02/25 1510 ----- ------- END OF REPORT us Generic External Data Provider LAB BLOOD ORDERAB LES Final Result [facility] [address] [place] [phone] * BI MR Guided Breast Biopsy Left (06/01/2025 9:04 AM EDT) Only the most recent of2 resultswithin the time period is included. Anatomical Region Laterality Modality Breast Left Magnetic Resonan ce 06/01/2025 9:04 AM EDT Narrative 06/01/2025 1:24 PM EDT [address] [address] Magnetic Resonance Report Signed with Kaylie Patient: Azra Cast MR#: [id number] : 1975 Acct:[id number] Age/Sex: 49 / F ADM Date: 06/01/25 Loc: HO.MRI Attending Dr: Aaron Pringle MD Ordering Physician: Aaron Pringle MD Date of Service: 06/01/25 Procedure(s): MR guided breast biopsy LT Accession Number(s): [id number] cc: Shereen Latham MD; Aaron Pringle MD [...] and with use of Gadavist gadolinium contrast. uBeam introducer localization system is used with grid. LESION: Retroareolar region middle depth. LOCAL ANESTHESIA: 6 mL 1% lidocaine; 10 mL 1% lidocaine with epinephrine. NEEDLE: tok tok tok 9-gauge vacuum assisted core biopsy device. APPROACH: [...] 06/01/25 1321 DD/ 0904 TD/TT: 06/01/25 1100 Food Processor: Procedure Note Donotuseinterpreter, Image - 06/07/2025 [place] [address] Magnetic Resonance Report Signed with Addenda Patient: Maged Cast#: [id number] : 1975Acct:[id number] Age/Sex: 49 / FADM Date: 06/01/25 Loc: .MRI Attending Dr: Aaron Pringle MD Ordering Physician: Aaron Pringle MD Date of Service: 06/01/25 Procedure(s): MR guided breast biopsy LT Accession Number(s): [id number] cc: Shereen Latham MD; Aaron Pringle MD [...] and with use of Gadavist gadolinium contrast. AteFosubo introducer localization system is used with grid. LESION: Retroareolar region middle depth. LOCAL ANESTHESIA: 6 mL 1% lidocaine; 10 mL 1% lidocaine with epinephrine. NEEDLE: tok tok tok 9-gauge vacuum assisted core biopsy device. APPROACH: [...] OV> 06/01/25 1321 DD/ 3 TD/TT: 06/01/251099 Food Processor: [facility] External Provider IMG MRI PROCEDURES Edited Result - Final * Vitamin D, 25-Hydroxy, Total, Immunoassay (05/15/2025 1:46 PM EDT) Vitamin D 25-OH Total 79.4 >30 ng/mL [facility] Comment: Health Based Reference Values*< 20 ng/mL Segrapyut74-19 ng/mL Insufficient> 30 ng/mL Sufficient*Candi INGRAM. N [...] PM EDT 05/15/2025 4:50 PM EDT Shereen Lahtam MD LAB BLOOD ORDERABLES Final Result [facility] [address] [place] [phone] * Magnesium (05/15/2025 1:46 PM EDT) Magnesium 1.6 1.6 - 2.6 mg/dL [facility] Blood Venous blood specimen / Unknown 05/15/2025 1:46 PM EDT 05/15/2025 4:50 PM EDT Shereen Latham MD LAB BLOOD ORDERABLES Final Result [facility] [address] [place] [phone] * BI MR Breast w and w/o Contrast Bilateral (04/20/2025 12:20 PM EDT) Anatomical Region Laterality Modality Breast Bilateral Magnetic Resonan ce 04/20/2025 12:2 0 PM EDT Narrative 04/23/2025 9:47 PM EDT [address] [address] Magnetic Resonance Report Signed Patient: Azra Cast MR#: [id number] : 1975 Acct:[id number] Age/Sex: 49 / F ADM Date: 04/20/25 Loc: HO.MRI Attending Dr: Aaron Pringle MD Ordering Physician: Aaron Pringle MD Date of Service: 04/20/25 Procedure(s): MR breast BI wo/w con Accession Number(s): [id number] cc: Shereen Latham MD; Margaret Holman BLOCK LAYER-C; Li Grande MD; Aaron Pringle MD EXAMINATION: [...] Cara Rodriges DO 04/23/2025 09:45 PM EDT RP Dictated By: Cara Rodriges DO Signed By: <Electronically signed by Cara Rodriges DO in OV> 04/23/25 2145 DD/ 1220 TD/TT: 04/20/25 1400 Food Processor: Procedure Note Donotuseinterpreter, Image - 04/23/[address] [address] Magnetic Resonance Report Signed Patient: Nicolas CastR#: [id number] : 1975Acct:[id number] Age/Sex: 49 / FADM Date: 04/20/25 Loc: HO.MRI Attending Dr: Aaron Pringle MD Ordering Physician: Aaron Pringle MD Date of Service: 04/20/25 Procedure(s): MR breast BI wo/w con Accession Number(s): [id number] cc: Shereen Latham MD; Margaret Holman; Li Grande MD;Aaron Pringle MD EXAMINATION: MR [...] Cara Rodriges DO 04/23/2025 09:45 PM EDT RP Dictated By: Cara Rodriges DO Signed By: <Electronically signed by Cara Rodriges DO in OV> 04/23/25 2145 DD/ 1220 TD/TT: 04/20/25 1400 Food Processor: [facility] External Provider IMG MRI PROCEDURES Edited Result - Final * D Dimer High Sensitivity (04/19/2025 3:05 PM EDT) D Dimer High Sensitivity <150 NG/ML [facility] Comment:D-DIMER HS REFERENCE RANGENote: Our [...] Provider LAB BLOOD ORDERAB LES Final Result [facility] [address] [place] [phone] * Sjogren's Antibodies (SS-A,SS-B) (04/19/2025 3:05 PM EDT) Sjogren's Antibody (SS-A) <1.0 NEG <1.0 NEG [facility] Sjogren's Antibody (SS-B) <1.0 NEG <1.0 NEG [facility] Comment:THIS TEST WAS PERFOR MED AT:[facility] [place] [phone] BRINK MD 04/19/2025 3:05 PM EDT 04/19/2025 3:05 PM EDT Generic External Data Provider LAB BLOOD ORDERAB LES Final Result Performing Organization Address [facility] Co de Phone Number [facility] [address] [place] [phone] * Cyclic Citrullinated Peptide (CCP) Antibody (IgG) (04/19/2025 3:05 PM EDT) Cyclic Citrullinated Peptide <16 UNITS [facility] Comment:Reference RangeNegat dasia: <20Weak Positive: 20-39Moderate Positive: 40-59Strong Positive: >59THIS TEST WAS PERFORMED AT:[facility] [address] [phone] BRINK MD 04/19/2025 3:05 PM EDT 04/19/2025 3:05 PM EDT Generic External Data Provider LAB BLOOD ORDERAB LES Final Result Performing Organization Address [facility] Co de Phone Number [facility] [address] [place] [phone] * SCL-70 Antibody (04/19/2025 3:05 PM EDT) Pathologist [facility] SCL-70 Antibody <1.0 NEG <1.0 NEG AI [facility] Comment:THIS TEST WAS PERFOR MED AT:[facility] [address] [phone] BRINK MD 04/19/2025 3:05 PM EDT 04/19/2025 3:05 PM EDT Generic External Data Provider LAB BLOOD ORDERAB LES Final Result Performing Organization Address [facility] Co de Phone Number [facility] [address] [place] [phone] * DNA (ds) Antibody (04/19/2025 3:05 PM EDT) Anti DNA DS Antibody <1 IU/mL [facility] Comment:IU/mL Interpretation < or = 4 Negative 5-9 Indeterminate > or = 10 PositiveTHIS TEST WAS PERFORMED AT:[facility] [place] [phone] BRINK MD 04/19/2025 3:05 PM EDT 04/19/2025 3:05 PM EDT Generic External Data Provider LAB BLOOD ORDERAB LES Final Result Performing Organization Address [facility]/ZIP Co de Phone Number [facility] [address] [place] [phone] * Rheumatoid Factor (04/19/2025 3:05 PM EDT) Rheumatoid Factor <13.0 <15.0 IU/mL [facility] 04/19/2025 3:05 PM EDT 04/19/2025 3:05 PM EDT Generic External Data Provider LAB BLOOD ORDERAB LES Final Result Performing Organization Address [facility] Co de Phone Number [facility] [address] [place] [phone] * (ABNORMAL) MONTY Screen,IFA, with Reflex to Titer and Pattern (04/19/2025 3:05 PM EDT) Anti Nuclear Antibody Screen POSITIVE (A) NEGATIVE [facility] Comment:MONTY IFA is a first l ine screen for detecting thepresence of up to approximately 150 autoantibodies invarious autoimmune diseases. A positive MONTY IFA resultis suggestive of autoimmune disease and reflexes totiter and pattern. Further laboratory testing may beconsidered if clinically indicated.For additional information, please refer tohttp://education.[employer]/faq/XVG142(This link is being provided for informational/educational purposes only.) MONTY Titer 1:80(A) titer [facility] Comment:A low level MONTY tite r may be present in pre-clinicalautoimmune diseases and normal individuals. Reference Range <1:40 Negative 1:40-1:80 Low Antibody Level >1:80 Elevated Antibody Level MONTY Pattern (A) [facility] Comment:Cytoplasmic, Fibrill ar Linear Abnormal Flag: AThis pattern is characterized by decorated cytoskeletalfibers, sometimes with small, discontinuous granulardeposits. Typical staining show striated actin cablesspanning the long axis of the cells (e.g., anti-actin,jdzo-sys-kccxjl myosin). Pattern is associated withmixed connective tissue disease (MCTD), chronic activehepatitis, liver cirrhosis, myasthenia gravis, Crohn'sdisease, primary biliary cholangitis (PBC), long-termhemodialysis, and rarely in systemic autoimmunerheumatic diseases (SARD).AC-15: Fibrillar LinearInternational Consensus on MONTY Patterns(https://doi.org/10.1515/uqel-0479-6802)THIS TEST WAS PERFORMED AT:[facility] [place] [phone] BRINK MD MONTY TITER 2 (REF LAB) [facility] MONTY Pattern 2 [facility] MONTY TITER 3 [facility] MONTY PATTERN 3 [facility] 04/19/2025 3:05 PM EDT 04/19/2025 3:05 PM EDT us Generic External Data Provider LAB BLOOD ORDERAB LES Final Result Performing Organization Address [facility]/ZIP Co de Phone Number [facility] [address] [place] [phone] * Uric acid (04/19/2025 3:05 PM EDT) Uric Acid 5.4 2.4 - 5.7 mg/dL [facility] 04/19/2025 3:05 PM EDT 04/19/2025 3:05 PM EDT Shereen Latham MD LAB BLOOD ORDERABLES Final Result Performing Organization Address [facility]/ZIP Co de Phone Number [facility] [address] [place] [address] [phone] * (ABNORMAL) Lipid Panel, Standard (12/29/2024 10:53 AM EST) Triglycerides 192(H) <150 mg/dL [facility] Comment:Desirable Triglyceri de: less than 150 mg/dLBorderline High Triglyceride 150-199 mg/dLHigh Triglyceride: 200-499 mg/dLVery High Triglyceride: greater than or equal to 5OO mg/dL Cholesterol 197 <200 mg/dL [facility] Comment:Desirable Cholestero l: less than 200 mg/dLBorderline High Cholesterol: 200-239 mg/dLHigh Cholesterol: greater than 239 mg/dL LDL Cholesterol Calculated 111(H) <100 mg/dL [facility] Comment:Desirable LDL: less than 100 mg/dLNear Optimal/Above Optimal LDL: 110- 129 mg/dLBorderline High LDL: 130-159 mg/dLHigh LDL: 160-189 mg/dLVery High LDL: greater than or equal to 190 mg/dL HDL Cholesterol 48 >40 mg/dL [facility] Comment:Desirable HDL: great er than 40 mg/dL Note: This HDL assay may give artificially low results in patients with liver disease. Blood Venous blood specimen / Unknown 12/29/2024 10:53 AM EST 12/29/2024 1:06 PM EST Shereen Latham MD LAB BLOOD ORDERABLES Final Result Performing Organization Address City/[facility] Co de Phone Number [facility] [address] [place] [phone] * (ABNORMAL) Hm Colonoscopy (07/11/2024) Colonoscopy Abnormal( A) Normal Comment:Herberth Stokes MD tubular adenoma x 3 Herberth Stokes MD HEALTH MAINTENANCE Final Result * Hepatitis Panel, General (06/16/2024 8:22 AM EDT) Hepatitis A IgM Nonreactive Nonreactive [facility] Comment:IgM antibodies to VIRAMONTES V not detected; does not exclude earlyacute or recovered HAV infection. ~Hepatitis B Surface Antibody REACTIVE Nonreactive [facility] Comment:REACTIVE: > 11.99 mI U/mL Hepatitis B Core Antibody Nonreactive Nonreactive [facility] Hepatitis C Antibody Nonreactive Nonreactive [facility] Comment:Antibodies to HCV no t detected; does not exclude early acuteHCV infection. Hepatitis B Surface Ag Negative Negative [facility] Blood Venous blood specimen / Unknown 06/16/2024 8:22 AM EDT 06/16/2024 11:18 AM EDT Shereen Latham MD LAB BLOOD ORDERABLES Final Result Performing Organization Address City/[facility]/ZIP Co de Phone Number [facility] [address] [place] [phone] * HIV-1/2 Antigen and Antibodies, Fourth Generation, with Reflexes (02/24/2024 8:47 AM EDT) [facility] HIV AB/AG Nonreactive Nonreactive [facility] Comment:HIV-1 p24 Ag and/or HIV-1/HIV-2 Ab not detected.A test result that is nonreactive does not exclude thepossibility of exposure to or infection with HIV-1 and/orHIV-2. Nonreactive results in this assay for individualswith prior exposure to HIV-1 and/or HIV-2 may be due toantigen and antibody levels that are below the limit ofdetection of this assay.The [employer] HIV Ag/Ab Combo assay result andsupplemental assay results should be interpreted inconjunction with the patient's clinical presentation,history and other laboratory results. If the results areinconsistent with clinical evidence, additional testing issuggested to confirm the result. Blood Venous blood specimen / Unknown 02/24/2024 8:47 AM EDT 02/24/2024 11:22 AM EDT us Naomi ORDAZ LAB BLOOD ORDERABLES Final Resul t [facility] [address] [place] [address] [phone] * (ABNORMAL) Cologuard?? colon cancer screening (08/27/2023 11:24 AM EDT) Cologuard Result Positive( A) Negative 09/05/2023 10:16 PM EDT [facility] (CLIA #:[id number]) Comment: POSITIVE TEST RESULT. A positive Cologuard [...] (Felix Mccoy al, N Engl J Med 2014;370(14):4998-4281.) Cologuard may produce a false negative or false positive result (no colorectal cancer or precancerous polyp present at colonoscopy follow up). A negative Cologuard test result does not guarantee the absence of CRC or advanced adenoma (pre-cancer). The current Cologuard screening interval is every 3 years. ([place] Cancer Society and U.S. Multi-Society Task Force). Cologuard performance data in a 10,000 patient pivotal study using colonoscopy as the reference method can be accessed at the following location: www.[employer]ifatech.com/results. Additional description of the Cologuard test process, warnings and precautions can be found at www.Britestream Networksrd.com. Stool specimen (specimen) 08/27/2023 11:24 AM EDT 08/29/2023 6:48 AM EDT Shereen Latham MD LAB MOLECULAR DIAGNOSTICS ORDERABLES Final Result [facility] (CLIA #:[id number]) [address] [place] [address], * HPV mRNA E6/E7 (08/12/2018 10:57 AM EDT) HPV mRNA E6/E7 Not Detected NOT DETECTED [facility] Comment: This test was performed using the APTIMA(R) HPV Assay ([employer] This assay detects E6/E7 viral messenger RNA (mRNA) from 14 high-risk HPV types (16,18,31,33,35,39,45,51, 52,56,58,59,66,68). For additional information please refer to: http://education.Rutanet/faq/FUX989y8 (This link is being provided for informational/ educational purposes only.) The analytical performance characteristics of this assay have been determined by [employer] [place], [place]. The modifications have not been cleared or approved by the FDA. This assay has been validated pursuant to the CLIA regulations and is used for clinical purposes. Test Performed by [facility], [employer] [place], [address] [place], [place] Dwaine Morelos M.D., Ph.D., Director of Laboratories , CLIA [id number] Please note: Effective 07/14/2016, HPV testing will be performed using [employer]'s APTIMA test which targets mRNA. Detecting mRNA instead of DNA, as in older methods, offers significant improvements in specificity. 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 Advance Directives and Living Will 07/05/2024 11:59 AM Health Care Proxy Care Teams Medical Insurance Claims Processor Relationship Specialty Start Date End Date Noa, MD Shereen [address] [place] [address] PCP - General Family Medicine 11/02/18 Sury Benitez [address] [facility] [address] [place] [address] Pulmonary Disease 09/27/24 Nirali Madrid SUSAN [address] [place] [address] Optometry 10/27/24 Li Grande MD [address] [place] [phone] Hematology and Oncology 10/27/24 Anselmo Gates MD [address] [facility] [address] [place] [address] Orthopaedic Surgery 10/27/24 Margaret Holman [address] [place] [address] Cardiology 10/27/24 Herberth Stokes MD [address] [facility] [address] [place] [address] Gastroenterology 10/27/24 Hilton Palacios MD [address] [facility], [address] [place] [address] Neurology 02/06/25 Aaron Pringle MD [address] [facility] [address] [place] [address] General Surgery 03/07/25 Pily Delaney Shipyard Painter HelperImplementation Project Manager 07/22/24 Elie Vicky [facility] 12/29/24
--- OUTSIDE RECORDS SUMMARY | 2025-07-20 15:53 | XMS_ITS | Encounter Summary ---
Author Organization [employer] Address [address] [facility] 7 [place] [address] Care Team Providers Care Quality Control Chemist Name Role Phone Shereen Latham MD Primary Care Provider [phone] Nupur Bullock PharmD Unavailable Sury Benitez Unavailable [phone] Julius, Nirali OD Unavailable Li Grande MD Unavailable [phone] Anselmo Gates MD Unavailable Margaret Holman Unavailable Herberth Stokes MD Unavailable [phone] Hilton Palacios MD Unavailable Aaron Pringle MD Unavailable [phone] Lori Batista Unavailable [phone] Neelima Raygoza Unavailable Reason for Visit * Reason Comments Med Refill Encounter Details Date Type Department Care Team (Late st Contact Info) Description 06/21/2024 Refill [facility] [address] [place], [place] [phone] Shereen Latham MD [address] [place], [place] [phone] Mild intermittent asthma, unspecified whether complicated; Pain [...] 08/07/2025 1:30 PM EDT Office Visit [facility] ADULT DENTAL [address] [place] [phone] Paz-Connor, Isa, DDS [address] [place] [address] 09/13/2025 3:15 PM EST Office Visit [facility] MEDICINE [address] [place] [address] Shereen Latham MD [address] [place] [phone] documented as of this encounter Visit Diagnoses Diagnosis Mild intermittent asthma, unspecified whether complicated Pain Generalized pain documented in this encounter Additional Health Concerns Assessment Noted Time PHQ-9 Depression Total Score: 13 024 4:53 PM EDT documented as of this encounter Care Teams Quality Control Chemist Relationship Specialty Start Date End Date Shereen Latham MD [address] [place] [phone] PCP - General Family Medicine 11/02/18 Nupur Bullock, hCarleneD [address] [place] [phone] Pharmacist Internal Medicine 08/09/24 05/15/25 Sury Benitez [address] [place] [address] [place] [address] [place] [address] Pulmonary Disease 09/27/24 Nirali Madrid OD [address] [place] [address] Optometry 10/27/24 Li Grande MD [address] [place] [address] Hematology and Oncology 10/27/24 Anselmo Gates MD [address] [place] [address] Orthopaedic Surgery 10/27/24 Margaret Holman [address] 3rd [place] [address] Cardiology 10/27/24 Herberth Stokes MD [address] [facility] [address] [place] [address] Gastroenterology 10/27/24 Hilton Palacios MD [address] [facility], [address] [place] [address] Neurology 02/06/25 Aaron Pringle MD [address] [place] [address] General Surgery 03/07/25 Lori Batista Registered Nurse 06/15/25 06/15/25 Neelima Raygoza 06/15/25 06/16/25 Pily Delaney Master EstheticianLapper 07/22/24 Elie Vicky [facility] 12/29/24 documented as of this encounter
--- OUTSIDE RECORDS SUMMARY | 2025-07-20 15:54 | XMS_ITS | Encounter Summary ---
Author Organization [employer] Address [address] [facility] 7t [place] [address] Care Team Providers Care Cotton Cleaner Name Role Phone [place], Shereen NOLASCO Primary Care Provider Nupur Bullock PharmD Unavailable [phone] Sury Benitez Unavailable [phone] Julius, Nirali OD Unavailable Li Grande MD Unavailable [phone] Anselmo Gates MD Unavailable Margaret Holman Unavailable Herberth Stokes MD Unavailable [phone] Hilton Palacios MD Unavailable Aaron Pringle MD Unavailable [phone] Lori Batista Unavailable Neelima Raygoza Unavailable Reason for Referral * Consultation (Routine) - Closed Specialty Diagnoses / Procedures Referred By Walter t Referred To Contact Obstetrics and Gynecology Diagnoses Women's annual routine gynecological examination Stacey Khan MD [address] [place] [address] Phone: tel: fax: [facility] Women s [facility] [address] 5th [address] (Main Hospital Entrance) [place] Phone: tel: fax: Referral ID Status Reason Start Date Expiration Date V isits Requested Visits Authorized [id number] Closed Specialty Services Required 01/19/2025 01/19/2026 9 9 Encounter Details Date Type Department Care Team (Late st Contact Info) Description 01/19/2025 Orders Only [facility] [address] [place] [address] Stacey Khan MD [address] [place], [place] [phone] Women's annual routine gynecological examination (Primary Dx) [...] Description 08/07/2025 1:30 PM EDT Office Visit [facility] [address] [place] [address] Isa De La Rosa, DDS [address] [place] [address] 09/13/2025 3:15 PM EST Office Visit [facility] [address] [place] [address] Shereen Latham MD [address] [place] [address] Scheduled Referrals Name Type Priority Associated Diagnoses [...] Sensitivity Troponin I (01/19/2025 4:33 PM EDT) [facility] TROPONIN I HIGH SENSITIVITY 7.8 <3.5 - 17.0 ng/L [facility] Comment:The Henriquez high sens itivity Troponin-I results should beused in conjunction with other diagnostic information suchas ECG, clinical observations and information, and patientsymptoms to aid in the diagnosis of PA. 01/19/2025 4:33 PM EDT 01/19/2025 4:34 PM EDT Generic External Data Provider LAB BLOOD ORDERAB LES Final Result Performing Organization Address [facility]/ZIP Co de Phone Number [facility] [address] [place] [phone] * B Type Natriuretic Peptide (BNP) (01/19/2025 4:33 PM EDT) [facility] B Type Natriuretic Peptide 22 <100 pg/mL [facility] 01/19/2025 4:33 PM EDT 01/19/2025 4:34 PM EDT Generic External Data Provider LAB BLOOD ORDERAB LES Final Result Performing Organization Address [facility]/ZIP Co de Phone Number [facility] [address] [place] [phone] * D Dimer High Sensitivity (01/19/2025 4:33 PM EDT) [facility] D Dimer High Sensitivity <150 NG/ML [facility] Comment:D-DIMER HS REFERENCE RANGENote: Our [...] Provider LAB BLOOD ORDERAB LES Final Result [facility] [address] [place] [phone] [phone] documented in this encounter Visit Diagnoses Diagnosis Women's annual routine gynecological examination- Primary documented in this encounter Additional Health Concerns Assessment Noted Time PHQ-9 Depression Total Score: 22 025 10:17 AM EST documented as of this encounter Care Teams Cotton Cleaner Relationship Specialty Start Date End Date Shereen Latham MD [address] [place] [address] PCP - General Family Medicine 11/02/18 Nupur Bullock, CharleneD [address] [place] [address] Pharmacist Internal Medicine 08/09/24 05/15/25 Sury Benitez [address] [place] [address] Dr [facility] [address] [place] [address] Pulmonary Disease 09/27/24 Nirali Madrid OD [address] [place] [address] Optometry 10/27/24 Li Grande MD [address] [place] [address] Hematology and Oncology 10/27/24 Anselmo Gates MD [address] [facility] [address] [facility] [address] [place] [address] Orthopaedic Surgery 10/27/24 Margaret Holman [address] 3rd [place] [address] Cardiology 10/27/24 Herberth Stokes MD [address] [facility] [address] 3rd [place] [address] Gastroenterology 10/27/24 Hilton Palacios MD [address] [place] [address], [address] [place] [address] Neurology 02/06/25 Aaron Pringle MD [address] [place] [address] 3rd [place] [address] General Surgery 03/07/25 Lori Batista Registered Nurse 06/15/25 06/15/25 Neelima Raygoza 06/15/25 06/16/25 Pily Delaney Biology TeacherRotary Pump Operator 07/22/24 Elie BRASHER [facility] Psychology 12/29/24 documented as of this encounter
--- OUTSIDE RECORDS SUMMARY | 2025-07-20 15:54 | XMS_ITS | Encounter Summary ---
Author Organization [employer] Address [address] [place] [address] 7 [place] [address] Care Team Providers Care Study Hall Supervisor Name Role Phone Shereen Latham MD Primary Care Provider [phone] Nupur Bullock PharmD Unavailable Sury Benitez Unavailable Julius, Nirali OD Unavailable Li Grande MD Unavailable [phone] Anselmo Gates MD Unavailable Margaret Holman Unavailable Herberth Stokes MD Unavailable Hilton Palacios MD Unavailable Aaron Pringle MD Unavailable [phone] Lori Batista Unavailable [phone] Neelima Raygoza Unavailable Reason for Visit * Reason Onset Date Comments Appointment Request 04/25/2025 Encounter Details Date Type Department Care Team (Late st Contact Info) Description 04/25/2025 Telephone [facility] 230 [place], [place] [phone] Shereen Latham MD 230 [place], [place] [phone] Appointment Request Social History Tobacco Use Types [...] 08/07/2025 1:30 PM EDT Office Visit [facility] 230 [place] [address] Paz-ConnorAlfredo abarcafemia, DDS [address] [place] [address] 09/13/2025 3:15 PM EST Office Visit [facility] 230 [place] [address] Shereen Latham MD [address] [place] [address] documented as of this encounter Visit Diagnoses Not on filedocumented in this encounter Additional Health Concerns Assessment Noted Time PHQ-9 Depression Total Score: 22 12/29/ 025 10:17 AM EST documented as of this encounter Care Teams Study Hall Supervisor Relationship Specialty Start Date End Date Shereen Latham MD [address] [place] [address] PCP - General Family Medicine 11/02/18 Nupur Bullock, CharleneD [address] [place] [address] Pharmacist Internal Medicine 08/09/24 05/15/25 Sury Benitez [address] [place] [address] [place] [address] Pulmonary Disease 09/27/24 Nirali Madrid OD [address] [place] [address] Optometry 10/27/24 Li Grande MD 575 [place] [address] Hematology and Oncology 10/27/24 Anselmo Gates MD [address] [place] [address] Orthopaedic Surgery 10/27/24 Margaret Holman [address] 3rd [place] [address] Cardiology 10/27/24 Herberth Stokes MD [address] [facility] [address] [place] [address] Gastroenterology 10/27/24 Hilton Palacios MD 15 [facility], [address] [place] [address] Neurology 02/06/25 Aaron Pringle MD [address]rd [place] [address] General Surgery 03/07/25 Lori Batista Registered Nurse 06/15/25 06/15/25 Neelima Raygoza 06/15/25 06/16/25 Pily Delaney Straw Hat BrusherGrinder Set Up Operator Thread 07/22/24 Elie Vicky [facility] Psychology 12/29/24 documented as of this encounter
--- OUTSIDE RECORDS SUMMARY | 2025-07-20 15:54 | XMS_ITS | Clinical Summary ---
Author Organization 175 [facility] Address 175 [place] [address] Phone Care Team Providers Care Pyrotechnician Name Role Phone Shereen Latham MD Primary Care Provider [phone] Social History Tobacco Use Types Packs/Day Years [...] 1:00 PM EDT Consult Orthopedic Surgery - [place] [address] [phone] Antony Garrett DPM [address] [address] Health Maintenance Due Date Last Done Comments [...] 08/10/2030 08/10/2020, 07/16/2007, 07/05/1981, Additional history exists RSV Immunization Adult Patients (1 - 1-dose 75+ series) 2048 MMR Vaccines Completed 06/29/1978 IPV Vaccines Completed 07/05/1981, 07/0 04/1980, 08/24/1978, Additional history exists Hepatitis B [...] topic Insurance MEDICAID - [place] Care Teams Pyrotechnician Relationship Specialty Start Date End Date Noa, MD Shereen [address] [place] [phone] PCP - General 01/13/1996
--- OUTSIDE RECORDS SUMMARY | 2025-07-20 15:54 | XMS_ITS | Encounter Summary ---
Author Organization [employer] Address 75 [facility] 7t [place] [address] Care Team Providers Care Entry Level Marketing Representative Name Role Phone [place], Shereen NOLASCO Primary Care Provider [phone] Sury Benitez Unavailable [phone] Nirali Madrid OD Unavailable Li Grande MD Unavailable [phone] Anselmo Gates MD Unavailable Margaret Holman Unavailable Herberth Stokes MD Unavailable [phone] Hilton Palacios MD Unavailable [phone] Aaron Pringle MD Unavailable [phone] Encounter Details Date Type Department Care Team (Latest Contact Info) Description 07/20/2025 Travel Social History Tobacco Use Types Packs/Day [...] Description 08/07/2025 1:30 PM EDT Office Visit [facility] [address] [place] [address] Isa De La Rosa DDS [address] [place] [address] 09/13/2025 3:15 PM EST Office Visit [facility] [address] [place] [address] Shereen Latham MD 230 [place] [address] documented as of this encounter Visit Diagnoses Not on filedocumented in this encounter Additional Health Concerns Assessment Noted Time PHQ-9 Depression Total Score: 21 025 11:03 AM EDT documented as of this encounter Care Teams Entry Level Marketing Representative Relationship Specialty Start Date End Date Shereen Latham MD 230 [place] [address] PCP - General Family Medicine 11/02/18 Sury Benitez [address] [place] [address] [address] [place] [address] Pulmonary Disease 09/27/24 Nirali Madrid OD [address] [place] [address] Optometry 10/27/24 Li Grande MD [address] [place] [address] Hematology and Oncology 10/27/24 Anselmo Gates MD 10 [facility] 203 [place] [address] Orthopaedic Surgery 10/27/24 Margaret Holman 11 [facility] 3rd [place] [address] Cardiology 10/27/24 Herberth Stokes MD 11 [facility] 3rd [place] [address] Gastroenterology 10/27/24 Hilton Palacios MD [address] [place] [address], [address] [place] [address] Neurology 02/06/25 Aaron Pringle MD [address] [place] [address] 3rd [place] [address] General Surgery 03/07/25 Pily Delaney Firer KilnGrocery Team Member 07/22/24 Elie Vicky [facility] Psychology 12/29/24 documented as of this encounter
--- OUTSIDE RECORDS SUMMARY | 2025-07-20 15:54 | XMS_ITS | Encounter Summary ---
Author Organization [employer] Address 75 [facility] 7t [place] [address] Care Team Providers Care Sponge Fisherman Name Role Phone Shereen Latham MD Primary Care Provider [phone] Nupur Bullock PharmD Unavailable Sury Benitez Unavailable [phone] Julius, Nirali OD Unavailable Li Grande MD Unavailable Anselmo Gates MD Unavailable Margaret Holman Unavailable Herberth Stokes MD Unavailable Hilton Palacios MD Unavailable Aaron Pringle MD Unavailable [phone] Lori Batista Unavailable [phone] Neelima Raygoza Unavailable Encounter Details Date Type Department Care Team (Late st Contact Info) Description 10/11/2024 Telephone [facility] 230 [place], [place] [phone] Shereen Latham MD 230 [place], [place] [phone] Social History Tobacco Use Types Packs/Day Years [...] Visit [facility] 230 [place] [address] Paz-Connor, Isa, DDS 230 [place] [address] 09/13/2025 3:15 PM EST Office Visit [facility] 230 [place] [address] Shereen Latham MD 230 [place] [address] documented as of this encounter Visit Diagnoses Not on filedocumented in this encounter Additional Health Concerns Assessment Noted Time PHQ-9 Depression Total Score: 13 024 4:53 PM EDT documented as of this encounter Care Teams Sponge Fisherman Relationship Specialty Start Date End Date Shereen Latham MD 230 [place] [address] PCP - General Family Medicine 11/02/18 Nupur Bullock, CharleneD 230 [place] [address] Pharmacist Internal Medicine 08/09/24 05/15/25 Sury Benitez [address] [place] [address] Dr [facility] 103 [place] [address] Pulmonary Disease 09/27/24 Nirali Madrid OD [address] [place] [address] Optometry 10/27/24 Li Grande MD 575 [place] [address] Hematology and Oncology 10/27/24 Anselmo Gates MD 10 [facility] [address] [place] [address] Orthopaedic Surgery 10/27/24 Margaret Holman [address] 3rd [place] [address] Cardiology 10/27/24 Herberth Stokes MD [address] [facility] [address] [facility] [place] [address] Gastroenterology 10/27/24 Hilton Palacios MD [address] [place] [address], [address] [place] [address] Neurology 02/06/25 Aaron Pringle MD [address] [place] [address] 3rd [facility] [place] [address] General Surgery 03/07/25 Lori Batista Registered Nurse 06/15/25 06/15/25 Neelima Raygoza 06/15/25 06/16/25 Pily Delaney Flight AttendantRn Procedure 07/22/24 Elie Vicky [facility] Psychology 12/29/24 documented as of this encounter
--- OUTSIDE RECORDS SUMMARY | 2025-07-20 15:54 | XMS_ITS | Encounter Summary ---
Author Organization [employer] Address 75 [facility] 7t [place] [address] Care Team Providers Care Retail Account Manager Name Role Phone Shereen Latham MD Primary Care Provider [phone] Nupur Bullock PharmD Unavailable Sury Benitez Unavailable Julius, Nirali OD Unavailable Li Grande MD Unavailable [phone] Anselmo Gates MD Unavailable Margaret Holman Unavailable Herberth Stokes MD Unavailable [phone] Hilton Palacios MD Unavailable Aaron Pringle MD Unavailable [phone] Lori Batista Unavailable [phone] Neelima Raygoza Unavailable Encounter Details Date Type Department Care Team (Late st Contact Info) Description 11/16/2022 Abstract [facility] 230 [place], [place] [phone] Shereen Latham MD 230 [place], [place] [phone] Social History Tobacco Use Types Packs/Day Years [...] Loomis's note from [facility] APPOINTMENT SPECIALIST, pt was due for repeat colposcopy [...] * Assessment & Plan Note - Shereen Ltaham MD - 11/16/2022 10:55 AM EST Associated [...] Problem(s): Hyperaldosteronism (CMS/HCC) (Resolved 07/29/2023) Seen by [facility] Endocrinology 04/03/2022. Initially seen 12/2021 for hyper[address]. Labs [facility] 10/2021 aldosterone 8, plasma renin 0.11, aldosterone/renin 72.7. She was likely on spironolactone and lisinopril at time of labs. Advise no spironolactone for 6 weeks and recheck renin aldosterone levels with renal panel and magnesium in hydrodynamicist. 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 -S/p RIGHT mastectomy with sentinel node bx by Dr. Prescott [facility] -Adriamycin/Cytoxan based chemotherapy started Oct, [...] ultrasound [place] [facility] Ultrasound showed diffusely echogenic parenchyma with focal sparing around the gallbladder. No suspicious lesions. Impression showed liver likely representing hepatic steatosis and non- obstructing right kidney stone. documented in this encounter Plan of Treatment Upcoming Encounters Date Type Department Care Team (Late st Contact Info) Description 08/07/2025 1:30 PM EDT Office Visit [facility] 230 [place] [address] Paz-Connor, Isa, DDS 230 [place] [address] 09/13/2025 3:15 PM EST Office Visit [facility] 230 [place] [address] Shereen Latham MD [address] [place] [address] documented as of this encounter Visit Diagnoses Not on filedocumented in this encounter Care Teams Retail Account Manager Relationship Specialty Start Date End Date Shereen Latham MD 230 [place] [address] PCP - General Family Medicine 11/02/18 Nupur Bullock PharmD 230 [place] [address] Pharmacist Internal Medicine 08/09/24 05/15/25 Sury Benitez [address] [place] [address] Dr [address] [place] [address] Pulmonary Disease 09/27/24 Nirali Madrid, SUSAN [address] [place] [address] Optometry 10/27/24 Li Grande MD 575 [place] [address] Hematology and Oncology 10/27/24 Anselmo Gates MD [address] [place] [address] Orthopaedic Surgery 10/27/24 Margaret Holman [address] 3rd [place] [address] Cardiology 10/27/24 Herberth Stokes MD [address] [facility] [address] 3rd [place] [address] Gastroenterology 10/27/24 Hilton Palacios MD 15 [facility], [address] [place] [address] Neurology 02/06/25 Aaron Pringle MD [address] [facility] [address] [place] [address] General Surgery 03/07/25 Lori Batista Registered Nurse 06/15/25 06/15/25 Neelima Raygoza 06/15/25 06/16/25 Pily Delaney Ostomy Care NurseCoding Advisor 07/22/24 Elie BRASHER [facility] Psychology 12/29/24 documented as of this encounter
--- OUTSIDE RECORDS SUMMARY | 2025-07-20 15:54 | XMS_ITS | Encounter Summary ---
Author Organization [employer] Address [address] [place] [address] 7 [place] [address] Care Team Providers Care Double Spindle Shaper Operator Name Role Phone Shereen Latham MD Primary Care Provider [phone] Nupur Bullock PharmD Unavailable Sury Benitez Unavailable [phone] JuliusLester castellanosn OD Unavailable Li Grande MD Unavailable [phone] Anselmo Gates MD Unavailable Margaret Holman Unavailable Herberth Stokes MD Unavailable [phone] Hilton Palacios MD Unavailable Aaron Pringle MD Unavailable [phone] Lori Batista Unavailable [phone] Neelima Raygoza Unavailable Reason for Visit * Reason Onset Date Comments Nurse Triage 01/25/2024 Referral 01/25/2024 Encounter Details Date Type Department Care Team (Late st Contact Info) Description 01/25/2024 Telephone [facility] 230 [place], [place] [phone] Shereen Latham MD 230 [place], [place] [phone] Nurse Triage; Referral Social History Tobacco Use [...] vary. Pt wants to be referred to [address] [address]. Adivsed will send to team to review [...] Description 08/07/2025 1:30 PM EDT Office Visit [facility] ADULT DENTAL [address] [place] [address] Rj Isa, DDS 230 [place] [address] 09/13/2025 3:15 PM EST Office Visit [facility] 230 [place] [address] Shereen Latham MD [address] [place] [address] documented as of this encounter Visit Diagnoses Not on filedocumented in this encounter Additional Health Concerns Assessment Noted Time PHQ-9 Depression Total Score: 21 023 10:42 AM EST documented as of this encounter Care Teams Double Spindle Shaper Operator Relationship Specialty Start Date End Date Shereen Latham MD 230 [place] [address] PCP - General Family Medicine 11/02/18 Nupur Bullock PharmD [address] [place] [address] Pharmacist Internal Medicine 08/09/24 05/15/25 Sury Benitez [address] [place] [address] Pulmonary Disease 09/27/24 Nirali Madrid OD [address] [place] [address] Optometry 10/27/24 Li Grande MD [address] [place] [address] Hematology and Oncology 10/27/24 Anselmo Gates MD [address] [place] [address] Orthopaedic Surgery 10/27/24 Margaret Holman [address] 3rd Floor [place] [address] Cardiology 10/27/24 Herberth Stokes MD [address] 3rd [place] [address] Gastroenterology 10/27/24 Hilton Palacios MD [address] [facility] [address], [address] [place] [address] Neurology 02/06/25 Aaron Pringle MD [address] 3rd [place] [address] General Surgery 03/07/25 Lori Batista Registered Nurse 06/15/25 06/15/25 Neelima Raygoza 06/15/25 06/16/25 Pily Delaney Speaking Unit AssemblerFloor Director 07/22/24 Elie Vicky [facility] 12/29/24 documented as of this encounter
--- OUTSIDE RECORDS SUMMARY | 2025-07-20 15:54 | XMS_ITS | Encounter Summary ---
Author Organization [employer] Address [address] [place] [address] 7t [place] [address] Care Team Providers Care Optometric Coordinator Name Role Phone Shereen Latham MD Primary Care Provider [phone] Nupur Bullock PharmD Unavailable Sury Benitez Unavailable [phone] JuliusLester castellanosn OD Unavailable Li Grande MD Unavailable [phone] Anselmo Gates MD Unavailable Margaret Holman Unavailable Herberth Stokes MD Unavailable [phone] Hilton Palacios MD Unavailable [phone] Aaron Pringle MD Unavailable [phone] Lori Batista Unavailable [phone] Neelima Raygoza Unavailable Reason for Visit * Reason Comments Med Refill Encounter Details Date Type Department Care Team (Late st Contact Info) Description 12/02/2022 Refill [facility] 230 [place], [place] [phone] Shereen Latham MD 230 [place], [place] [phone] Wheeze (Primary Dx); Pain Social History Tobacco [...] Description 08/07/2025 1:30 PM EDT Office Visit [facility]ULT D[facility] [address] [place] [address] Isa De La Rosa DDS [address] [place] [address] 09/13/2025 3:15 PM EST Office Visit [facility] [address] [place] [address] Shereen Latham MD [address] [place] [address] documented as of this encounter Visit Diagnoses Diagnosis Wheeze- Primary Wheezing Pain Generalized pain documented in this encounter Care Teams Optometric Coordinator Relationship Specialty Start Date End Date Shereen Latham MD [address] [place] [address] PCP - General Family Medicine 11/02/18 Nupur Bullock, CharleneD [address] [place] [address] Pharmacist Internal Medicine 08/09/24 05/15/25 Sury Benitez [address] [place] [address] [place] [address] [place] [address] Pulmonary Disease 09/27/24 Nirali Madrid OD [address] [place] [address] Optometry 10/27/24 Li Grande MD 575 [place] [address] Hematology and Oncology 10/27/24 Anselmo Gates MD [address] [place] [address] Orthopaedic Surgery 10/27/24 Margaret Holman [address] 3rd [place] [address] Cardiology 10/27/24 Herberth Stokes MD 11 [facility] 3rd [place] [address] Gastroenterology 10/27/24 Hilton Palacios MD 15 [facility], [address] [place] [address] Neurology 02/06/25 Aaron Pringle MD [address]rd [place] [address] General Surgery 03/07/25 Lori Batista Registered Nurse 06/15/25 06/15/25 Neelima Raygoza 06/15/25 06/16/25 Pily Delaney Used Car Lot AttendantConciliator 07/22/24 Elie Vicky [facility] 12/29/24 documented as of this encounter
--- OUTSIDE RECORDS SUMMARY | 2025-07-20 15:54 | XMS_ITS | Encounter Summary ---
Author Organization [employer] Address 75 [facility] 7t [place] [address] Care Team Providers Care Beef Selector Name Role Phone Shereen Latham MD Primary Care Provider [phone] Nupur Bullock PharmD Unavailable Sury Benitez Unavailable [phone] JuliusLester castellanosn OD Unavailable Li Grande MD Unavailable [phone] Anselmo Gates MD Unavailable Margaret Holman Unavailable Herberth Stokes MD Unavailable [phone] Hilton Palacios MD Unavailable Aaron Pringle MD Unavailable [phone] Lori Batista Unavailable [phone] Neelima Raygoza Unavailable Reason for Visit * Reason Comments Med Refill Encounter Details Date Type Department Care Team (Late st Contact Info) Description 01/17/[address] [facility] CHC MED & PEDS [address] [place], [place] [phone] Shereen Latham MD 230 [place], [place] [phone] Pain Social History Tobacco Use Types Packs/Day [...] Description 08/07/2025 1:30 PM EDT Office Visit [facility] ADULT DENTAL 230 [place] [address] Isa De La Rosa DDS 230 [place] [address] 09/13/2025 3:15 PM EST Office Visit [facility] MEDICINE 230 [place] [address] Shereen Latham MD 230 [place] [address] documented as of this encounter Visit Diagnoses Diagnosis Pain Generalized pain documented in this encounter Additional Health Concerns Assessment Noted Time PHQ-9 Depression Total Score: 22 025 10:17 AM EST documented as of this encounter Care Teams Beef Selector Relationship Specialty Start Date End Date Shereen Latham MD 230 [place] [address] PCP - General Family Medicine 11/02/18 Nupur Bullock PharmD 230 [place] [address] Pharmacist Internal Medicine 08/09/24 05/15/25 Sury Benitez [address] [place] [address] [address] [place] [address] Pulmonary Disease 09/27/24 Nirali Madrid OD 267 [place] [address] Optometry 10/27/24 iL Grande MD [address] [place] [address] Hematology and Oncology 10/27/24 Anselmo Gates MD [address] [place] [address] [address] [place] [address] Orthopaedic Surgery 10/27/24 Margaret Holman [address] 3rd [place] [address] Cardiology 10/27/24 Herberth Stokes MD [address] [facility] [address] [place] [address] Gastroenterology 10/27/24 Hilton Palacios MD [address] [place] [address], [address] [place] [address] Neurology 02/06/25 Aaron Pringle MD [address] [place] [address] [address] [facility] [place] [address] General Surgery 03/07/25 Lori Batista Registered Nurse 06/15/25 06/15/25 Neelima Raygoza 06/15/25 06/16/25 Pily Delaney Editorial ManagerWatchmaker Apprentice 07/22/24 Elie Vicky [facility] 12/29/24 documented as of this encounter
--- OUTSIDE RECORDS SUMMARY | 2025-07-20 15:54 | XMS_ITS | Encounter Summary ---
Author Organization [employer] Address [address] [place] [address] 7 [place] [address] Care Team Providers Care Options Advisor Name Role Phone Shereen Latham MD Primary Care Provider [phone] Nupur Bullock PharmD Unavailable Sury Benitez Unavailable [phone] Julius, Nirali OD Unavailable Li Grande MD Unavailable [phone] Anselmo Gates MD Unavailable Margaret Holman Unavailable Herberth Stokes MD Unavailable [phone] Hilton Palacios MD Unavailable Aaron Pringle MD Unavailable [phone] Lori Batista Unavailable [phone] Neelima Raygoza Unavailable Reason for Visit * Reason Onset Date Comments ER Follow-up 12/07/2024 Encounter Details Date Type Department Care Team (Late st Contact Info) Description 12/07/2024 Telephone [facility] 230 [place], [place] [phone] Shereen Latham MD 230 [place] [address] ER Follow-up Social History Tobacco [...] the past 12 months, has t he [employer], gas, oil or water company threatened to [...] TC [place] [facility] [place] 12/06/2024 for right lower [...] ED visit on : Date: 12/06/24 Hospital: [facility] Seen for: Flu Patient advised will forward to team nurse for follow up documented in this encounter Plan of Treatment Upcoming Encounters Date Type Department Care Team (Late st Contact Info) Description 08/07/2025 1:30 PM EDT Office Visit [facility] [address] [place] [address] Paz-Connor, Isa, DDS 230 [place] [address] 09/13/2025 3:15 PM EST Office Visit [facility] 230 [place] [address] Shereen Latham MD 230 [place] [address] documented as of this encounter Visit Diagnoses Not on filedocumented in this encounter Additional Health Concerns Assessment Noted Time PHQ-9 Depression Total Score: 13 024 4:53 PM EDT documented as of this encounter Care Teams Options Advisor Relationship Specialty Start Date End Date Shereen Latham MD 230 [place] [address] PCP - General Family Medicine 11/02/18 Nupur Bullock, CharleneD 230 [place] [address] Pharmacist Internal Medicine 08/09/24 05/15/25 Sury Benitez [address] [place] [address] [address] [place] [address] Pulmonary Disease 09/27/24 Nirali Madrid OD [address] [place] [address] Optometry 10/27/24 Li Grande MD [address] [place] [address] Hematology and Oncology 10/27/24 Anselmo Gates MD [address] [place] [address] Orthopaedic Surgery 10/27/24 Margaret Holman 11 [facility] 3rd [place] [address] Cardiology 10/27/24 Herberth Stokes MD 11 [facility] 3rd [place] [address] Gastroenterology 10/27/24 Hilton Palacios MD 15 [facility], [address] [place] [address] Neurology 02/06/25 Aaron Pringle MD 11 [facility] 3rd [place] [address] General Surgery 03/07/25 Lori Batista Registered Nurse 06/15/25 06/15/25 Neelima Raygoza 06/15/25 06/16/25 Pily Delaney Life Support TechnicianCity Planning Engineer 07/22/24 Elie Vicky [facility] Psychology 12/29/24 documented as of this encounter
--- OUTSIDE RECORDS SUMMARY | 2025-07-20 15:54 | XMS_ITS | Encounter Summary ---
Author Organization [employer] Address 75 [facility] 7t [place] [address] Care Team Providers Care Certified Meeting Professional Name Role Phone Noa, Shereen NOLASCO Primary Care Provider [phone]- [phone] Nupur Bullock PharmD Unavailable Sury Benitez Unavailable [phone] Julius, Nirali OD Unavailable Li Grande MD Unavailable [phone] Anselmo Gates MD Unavailable Margaret Holman Unavailable Herberth Stokes MD Unavailable [phone] Hilton Palacios MD Unavailable Aaron Pringle MD Unavailable [phone] Lori Batista Unavailable [phone] Neelima Raygoza Unavailable Encounter Details Date Type Department Care Team (Latest Contact Info) Description 08/16/2021 Abstract [facility] CONVERSIONS Dental, Provider, DDS Social History [...] 1:30 PM EDT Office Visit [facility] ADULT DENTAL [address] [place] [address] Paz-Connor, Isa, DDS 230 [place] [address] 09/13/2025 3:15 PM EST Office Visit [facility] MEDICINE [address] [place] [address] Shereen Latham MD [address] [place] [address] documented as of this encounter Visit Diagnoses Not on filedocumented in this encounter Care Teams Certified Meeting Professional Relationship Specialty Start Date End Date Shereen Latham MD [address] [place] [address] PCP - General Family Medicine 11/02/18 Nupur Bullock, CharleneD [address] [place] [address] Pharmacist Internal Medicine 08/09/24 05/15/25 Sury Benitez [address] [place] [address] [address] Pulmonary Disease 09/27/24 Nirali Madrid OD 267 [place] [address] Optometry 10/27/24 Li Grande MD [address] [place] [address] Hematology and Oncology 10/27/24 Anselmo Gates MD [address] [place] [address] Orthopaedic Surgery 10/27/24 Margaret Holman [address]rd [place] [address] Cardiology 10/27/24 Herberth Stokes MD [address] 3rd [place] [address] Gastroenterology 10/27/24 Hilton Palacios MD [address] [facility] [address], [address] [place] [address] Neurology 02/06/25 Aaron Pringle MD [address] 3rd [place] [address] General Surgery 03/07/25 Lori Batista Registered Nurse 06/15/25 06/15/25 Neelima Raygoza 06/15/25 06/16/25 Pily Delaney Geology ProfessorSales Department Clerk 07/22/[address] [facility] 12/29/24 documented as of this encounter
--- OUTSIDE RECORDS SUMMARY | 2025-07-20 15:54 | XMS_ITS | Encounter Summary ---
Author Organization [employer] Address 75 [facility] 7 [place] [address] Care Team Providers Care Hub Associate Name Role Phone Shereen Latham MD Primary Care Provider [phone] Sury Benitez Unavailable Nirali Madrid OD Unavailable Li Grande MD Unavailable [phone] Anselmo Gates MD Unavailable Margaret Holman Unavailable Herberth Stokes MD Unavailable [phone] Hilton Palacios MD Unavailable [phone] Aaron Pringle MD Unavailable [phone] Lori Batista Unavailable [phone] Neelima Raygoza Unavailable Reason for Visit * Reason Onset Date Comments Nurse Triage 06/07/2025 Encounter Details Date Type Department Care Team (Late st Contact Info) Description 06/07/[address] [facility] MEDICINE 230 [place], [place] [phone] Shereen Latham MD 230 [place], [place] [phone] Nurse Triage Social History Tobacco Use Types [...] night. Pt is advised to come to [facility] open till 8pm this evening to be seen by provider. Pt agrees with this disposition. Pt will come to [facility] after 5pm since is in the hospital [...] was exposed to Bursae Contact pt at [phone] documented in this encounter Plan of Treatment Upcoming Encounters Date Type Department Care Team ([facility] st Contact Info) Description 08/07/2025 1:30 PM EDT Office Visit [facility] ADULT DENTAL 230 [place] [address] Isa De La Rosa, JUAN FRANCISCOS 230 [place] [address] 09/13/2025 3:15 PM EST Office Visit [facility] MEDICINE 230 [place] [address] Shereen Latham MD 230 [place] [address] documented as of this encounter Visit Diagnoses Not on filedocumented in this encounter Additional Health Concerns Assessment Noted Time PHQ-9 Depression Total Score: 21 025 11:03 AM EDT documented as of this encounter Care Teams Hub Associate Relationship Specialty Start Date End Date Shereen Latham MD 230 [place] [address] PCP - General Family Medicine 11/02/18 Sury Benitez [address] [place] [address] Dr [facility] 103 [place] [address] Pulmonary Disease 09/27/24 Nirali Madrid OD 267 [place] [address] Optometry 10/27/24 Li Grande MD [address] [place] [address] Hematology and Oncology 10/27/24 Anselmo Gates MD [address] [place] [address] Orthopaedic Surgery 10/27/24 Margaret Holman [address] 3rd [place] [address] Cardiology 10/27/24 Herberth Stokes MD 11 [facility] 3rd [place] [address] Gastroenterology 10/27/24 Hilton Palacios MD [address] [place] [address], [address] [place] [address] Neurology 02/06/25 Aaron Pringle MD [address] [place] [address] 3rd Floor [place] [address] General Surgery 03/07/25 Lori Batista Registered Nurse 06/15/25 06/15/25 Neelima Raygoza 06/15/25 06/16/25 Pily Delaney Dry Wall Applicator3D Specialist 07/22/24 Elie Vicky [facility] Psychology 12/29/24 documented as of this encounter
--- OUTSIDE RECORDS SUMMARY | 2025-07-20 15:54 | XMS_ITS | Encounter Summary ---
Author Organization [employer] Address [address] [place] [address] 7t [place] [address] Care Team Providers Care Electric Meter Repairer Name Role Phone Shereen Latham MD Primary Care Provider [phone] Nupur Bullock PharmD Unavailable Sury Benitez Unavailable [phone] JuliusNirali castellanos OD Unavailable Li Grande MD Unavailable [phone] Anselmo Gates MD Unavailable Margaret Holman Unavailable Herberth Stokes MD Unavailable Hilton Palacios MD Unavailable Aaron Pringle MD Unavailable [phone] Lori Batista Unavailable [phone] Neelima Raygoza Unavailable Reason for Visit * Reason Onset Date Comments Medication Question 08/25/2024 Encounter Details Date Type Department Care Team ([facility] st Contact Info) Description 08/25/2024 Telephone [facility] MEDICINE 230 [place], [place] [phone] Shereen Latham MD 230 [place], [place] [phone] Medication Question Social History Tobacco Use Types [...] the past 12 months, has t he [employer], gas, oil or water [employer] threatened to shut off services in your [...] any questions you can contact pt at [phone]. documented in this encounter Plan of Treatment Upcoming Encounters Date Type Department Care Team (Late st Contact Info) Description 08/07/2025 1:30 PM EDT Office Visit [facility] ADULT DENTAL [address] [place] [address] Brandi-Isa Connor, DDS 230 [place] [address] 09/13/2025 3:15 PM EST Office Visit [facility] MEDICINE [address] [place] [address] Shereen Latham MD [address] [place] [address] documented as of this encounter Visit Diagnoses Not on filedocumented in this encounter Additional Health Concerns Assessment Noted Time PHQ-9 Depression Total Score: 13 024 4:53 PM EDT documented as of this encounter Care Teams Electric Meter Repairer Relationship Specialty Start Date End Date Shereen Latham MD [address] [place] [address] PCP - General Family Medicine 11/02/18 Nupur Bullock, CharleneD [address] [place] [address] Pharmacist Internal Medicine 08/09/24 05/15/25 Sury Benitez [address] [place] [address] [place] [address] Pulmonary Disease 09/27/24 Nirali Madrid OD [address] [place] [address] Optometry 10/27/24 Li Grande MD 575 [place] [address] Hematology and Oncology 10/27/24 Anselmo Gates MD [address] [place] [address] Orthopaedic Surgery 10/27/24 Margaret Holman [address] 3rd [place] [address] Cardiology 10/27/24 Herberth Stokes MD 11 [facility] 3rd [place] [address] Gastroenterology 10/27/24 Hilton Palacios MD 15 [facility], [address] [place] [address] Neurology 02/06/25 Aaron Pringle MD 11 [facility] 3rd [place] [address] General Surgery 03/07/25 Lori Batista Registered Nurse 06/15/25 06/15/25 Neelima Raygoza 06/15/25 06/16/25 Pily Delaney Safety TechnicianInternet Sales Consultant 07/22/24 Elie Vicky [facility] Psychology 12/29/24 documented as of this encounter
--- OUTSIDE RECORDS SUMMARY | 2025-07-20 15:54 | XMS_ITS | Clinical Summary ---
Author Organization [facility] Address [address] [facility] [address] [place] [address] Phone Care Team Providers Care Heavy Duty Custodian Name Role Phone Unavailable Primary Care Provider [...] It is not the complete legal health record.[facility]
--- OUTSIDE RECORDS SUMMARY | 2025-07-20 15:54 | XMS_ITS | Encounter Summary ---
Author Organization [employer] Address 75 [facility] 7 [place] [address] Care Team Providers Care Auto Self Service Station Attendant Name Role Phone [place], Shereen NOLASCO Primary Care Provider [phone] Sury Benitez Unavailable [phone] Nirali Madrid OD Unavailable Li Grande MD Unavailable [phone] Anselmo Gates MD Unavailable Margaret Holman Unavailable Herberth Stokes MD Unavailable [phone] Hilton Palacios MD Unavailable Aaron Pringle MD Unavailable [phone] Neelima Raygoza Unavailable Reason for Visit * Reason Onset Date Comments active requested appt 06/16/2025 Encounter Details Date Type Department Care Team (Late st Contact Info) Description 06/16/2025 Telephone [facility]ULT [facility] 230 [place], [place] [phone] Isa De La Rosa DDS 230 [place], [place] [phone] active requested appt Social History Tobacco Use [...] 1:30 PM EDT Office Visit [facility] ADULT DENTAL 230 [place] [address] Paz-ConnorIsa abarca, DDS 230 [place] [address] 09/13/2025 3:15 PM EST Office Visit [facility] MEDICINE 230 [place] [address] Shereen Latham MD [address] [place] [address] documented as of this encounter Visit Diagnoses Not on filedocumented in this encounter Additional Health Concerns Assessment Noted Time PHQ-9 Depression Total Score: 21 025 11:03 AM EDT documented as of this encounter Care Teams Auto Self Service Station Attendant Relationship Specialty Start Date End Date Shereen Latham MD 230 [place] [address] PCP - General Family Medicine 11/02/18 Sury Benitez [address] [place] [address] Dr Y[address] [place] [address] Pulmonary Disease 09/27/24 Nirali Madrid OD 267 [place] [address] Optometry 10/27/24 Li Grande MD 575 [place] [address] Hematology and Oncology 10/27/24 Anselmo Gates MD [address] [place] [address] Orthopaedic Surgery 10/27/24 Margaret Holman [address] 3rd [place] [address] Cardiology 10/27/24 Herberth Stokes MD [address] 3rd [place] [address] Gastroenterology 10/27/24 Hilton Palacios MD 15 [facility], [address] [place] [address] Neurology 02/06/25 Aaron Pringle MD [address] 3rd [facility] [place] [address] General Surgery 03/07/25 Neelima Raygoza 06/15/25 06/16/25 Pily Delaney Principal EngineerConcrete Pointer 07/22/24 Elie Vicky [facility] Psychology 12/29/24 documented as of this encounter
--- OUTSIDE RECORDS SUMMARY | 2025-07-20 15:54 | XMS_ITS | Encounter Summary ---
Author Organization [employer] Address 75 [facility] 7t [place] [address] Care Team Providers Care Chemical Sprayer Name Role Phone Shereen Latham MD Primary Care Provider [phone]- [phone] Nupur Bullock PharmD Unavailable Sury Benitez Unavailable [phone] Julius, Nirali OD Unavailable Li Grande MD Unavailable Anselmo Gates MD Unavailable Margaret Holman Unavailable Herberth Stokes MD Unavailable [phone] Hilton Palacios MD Unavailable Aaron Pringle MD Unavailable [phone] Lori Batista Unavailable [phone] Neelima Raygoza Unavailable Encounter Details Date Type Department Care Team (Late st Contact Info) Description 07/27/[address] [facility] MEDICINE 230 [place], [place] [phone] Shereen Latham MD 230 [place], [place] [phone] Hypomagnesemia Social History Tobacco Use Types Packs/Day [...] Description 08/07/2025 1:30 PM EDT Office Visit [facility] ADULT DENTAL [address] [place] [address] Paz-ConnorIsa abarca, DDS [address] [place] [address] 09/13/2025 3:15 PM EST Office Visit [facility] MEDICINE [address] [place] [address] Shereen Latham MD [address] [place] [address] documented as of this encounter Visit Diagnoses Diagnosis Hypomagnesemia Disorders of magnesium metabolism documented in this encounter Additional Health Concerns Assessment Noted Time PHQ-9 Depression Total Score: 10 023 10:27 AM EDT documented as of this encounter Care Teams Chemical Sprayer Relationship Specialty Start Date End Date Shereen Latham MD [address] [place] [address] PCP - General Family Medicine 11/02/18 Nupur Bullock, CharleneD [address] [place] [address] Pharmacist Internal Medicine 08/09/24 05/15/25 Sury Benitez [address] [place] [address] [address] [place] [address] Pulmonary Disease 09/27/24 Julius, Nirali, OD 267 [place] [address] Optometry 10/27/24 Li Grande MD 575 [place] [address] Hematology and Oncology 10/27/24 Anselmo Gates MD [address] [place] [address] Orthopaedic Surgery 10/27/24 Margaret Holman [address]rd [place] [address] Cardiology 10/27/24 Herberth Stokes MD 11 [facility] 3rd [place] [address] Gastroenterology 10/27/24 Hilton Palacios MD 15 [facility], [address] [place] [address] Neurology 02/06/25 Aaron Pringle MD 11 [facility] 3rd [place] [address] General Surgery 03/07/25 Lori Batista Registered Nurse 06/15/25 06/15/25 Neelima Raygoza 06/15/25 06/16/25 Pily Delaney Library Acquisitions TechnicianMental Health Coordinator 07/22/24 Elie Vicky [facility] Psychology 12/29/24 documented as of this encounter
--- OUTSIDE RECORDS SUMMARY | 2025-07-20 15:54 | XMS_ITS | Encounter Summary ---
Author Organization [employer] Address 75 [facility] 7t [place] [address] Care Team Providers Care Middleware Systems Architect Name Role Phone Story, Shereen NOLASCO Primary Care Provider [phone] Nupur Bullock PharmD Unavailable Sury Benitez Unavailable [phone] Julius, Nirali OD Unavailable Li Grande MD Unavailable [phone] Anselmo Gates MD Unavailable Margaret Holman Unavailable Herberth Stokes MD Unavailable [phone] Hilton Palacios MD Unavailable [phone] Aaron Pringle MD Unavailable [phone] Lori Batista Unavailable [phone] Neelima Raygoza Unavailable Encounter Details Date Type Department Care Team (Latest Contact Info) Description 07/06/2019 Abstract [facility] CONVERSIONS Dental, Provider, DDS Social History Tobacco [...] Description 08/07/2025 1:30 PM EDT Office Visit [facility] ADULT DENTAL [address] [place] [address] Paz-Connor, Isa, DDS 230 [place] [address] 09/13/2025 3:15 PM EST Office Visit [facility] MEDICINE [address] [place] [address] Shereen Latham MD [address] [place] [address] documented as of this encounter Visit Diagnoses Not on filedocumented in this encounter Care Teams Middleware Systems Architect Relationship Specialty Start Date End Date Shereen Latham MD [address] [place] [address] PCP - General Family Medicine 11/02/18 Nupur Bullock, CharleneD [address] [place] [address] Pharmacist Internal Medicine 08/09/24 05/15/25 Sury Benitez [address] [place] [address] [address] [place] [address] Pulmonary Disease 09/27/24 Nirali Madrid OD 267 [place] [address] Optometry 10/27/24 Li Grande MD [address] [place] [address] Hematology and Oncology 10/27/24 Anselmo Gates MD [address] [place] [address] Orthopaedic Surgery 10/27/24 Margaret Holman [address] 3rd [place] [address] Cardiology 10/27/24 Herberth Stokes MD [address] 3rd [place] [address] Gastroenterology 10/27/24 Hilton Palacios MD 15 [facility], [address] [place] [address] Neurology 02/06/25 Aaron Pringle MD [address]rd [place] [address] General Surgery 03/07/25 Lori Batista Registered Nurse 06/15/25 06/15/25 Neelima Raygoza 06/15/25 06/16/25 Pily Delaney Surface GrinderIndustrial Education Teacher 07/22/24 Elie Vicky [facility] 12/29/24 documented as of this encounter
[2025-07-20 17:18] LABS: Uric Acid 5.7 mg/dL (2.4-5.7)
== END 2025-07-20 13:52 | disposition home or self-care (01) ==
LOC: HO.HHCL 13:51
PROVIDERS: Student in an Organized Health Care Education/Training Program; PCP Family Medicine; Visit Provider Family Medicine
DX: M79.641 Pain in right hand (principal); M79.642 Pain in left hand
CPT/HCPCS: 36415; 73130; 84550; 85652; 86140

== ENCOUNTER → 2025-07-20 14:09 | Outpatient (BNV) | payer MEDICAID, SELFPAY | PROVIDERS: PCP Family Medicine; Visit Provider Radiology Body Imaging | DX: M65.312 Trigger thumb, left thumb (principal); M65.311 Trigger thumb, right thumb | CPT/HCPCS: 73130 ==

== ENCOUNTER 2025-07-25 14:46 | Outpatient (AMB) | payer MEDICAID, SELFPAY ==
--- OUTSIDE RECORDS SUMMARY | 2025-07-20 13:15 | XMS_ITS | Encounter Summary ---
Author Organization [employer] Address [address] [facility] 7 [place] [address] Care Team Providers Care Stunner Animal Name Role Phone [place], Shereen NOLASCO Primary Care Provider [phone] Sury Benitez Unavailable [phone] Nirali Madrid OD Unavailable Li Grande MD Unavailable [phone] Anselmo Gates MD Unavailable Margaret Holman Unavailable Herberth Stokes MD Unavailable [phone] Hilton Palacios MD Unavailable Aaron Pringle MD Unavailable [phone] Encounter Details Date Type Department Care Team (Late st Contact Info) Description 07/20/2025 1:15 PM EDT Office Visit [facility] [address] [place] [address] Junie Padron MD [address] [place], [place] [phone] Pain in both hands (Primary Dx); Bilateral hand pain Social History Tobacco Use Types Packs/Day Years [...] Pressure 110/80 07/20/2025 2:10 PM EDT Pulse 92 07/20/2025 2:10 PM EDT Temperature 36.6 C [...] 2:10 PM EDT documented in this encounter Progress Notes * Junie Raygoza MD - 07/20/2025 1:15 PM EDT Subjective Patient ID: Azra Cast is a 49 y.o. female who presents for sick visit HPI 49 y o F w PMX of Obesity, Right breast carcinoma now with a new 6 mm left breast carcinoma in the lower outer quadrant, alcohol use disorder, anemia, HTN, GERD, history of gout ,HF ,CKD,depression,anxiety,fibromyalgia Comes for sick visit Reports having bl thumb pain L> R for 3 weeks ,reports some swelling in PIP of thumbs , denies erythema ,am rigidity few min in am Denies symptoms as her gout flare up, states taking allopurinol 100 mg BID ,usually gout is in her feet and knees States has apt w hand surgeon for hand pain,referred for trigger finger by PCP ,states apt scheduled for 08/15/25 Has not been taking anything for pain Allergies[1] Review of Systems Bl hand pain in PIP of thumbs Objective BP 110/80 (BP Location: Left arm, Patient Position: Sitting, BP Cuff Size: Large adult) Pulse 92 Temp 97.8 ??F (36.6 ??C) (Temporal) Resp 20 Ht 5' 7 (1.702 m) Wt 197 lb 12.8 oz (89.7 kg) SpO2 99% BMI 30.98 kg/m?? Physical Exam slight swelling in bl thumbs PIP but not increase skin temp nor erythema ,ROM preserved but elicit pain Assessment/Plan Problem List Items Addressed This Visit Bilateral hand pain From Current exam slight swelling in bl thumbs PIP but not increase skin temp nor erythema ,ROM preserved but elicit pain See by senior rd engineer Lilly Clarke MD in 04/19/2025 for mx joint complaints but seems pt not followup after to f lab results -04/2025 CCP neg,MONTY + 1:80 ,antiDNA neg ,SCL 70 neg,Sjogren neg , RF neg ,uric acid 5.4 Symptoms could be from OA ,will r/o gout but does not appear from clinical picture -CRP,ESR,uric acid ordered today -ordered Bl hand XR -tylenol TID -pxed topical diclofenac -pt will call her senior rd engineer to schedule f up -has apt already scheduled w PCP for 09/13/25 Relevant Medications Diclofenac Sodium 1 % gel Other Visit Diagnoses Pain in both hands - Primary Relevant Medications Diclofenac Sodium 1 % gel Other Relevant Orders C-reactive Protein (Completed) Sed Rate by Modified Westergren (Completed) Uric acid (Completed) XR Hand 3+Views Bilateral (Completed) [1] Allergies Allergen Reactions Amoxicillin Hives and Itching Other reaction(s): itchy, red skin Other Reaction(s): rash, rash/itching Sulfamethoxazole Rash Trimethoprim Hives, Itching and Rash Hydrocodone Hives and Itching Latex Hives and Itching Other reaction(s): itching documented in this encounter Miscellaneous Notes * Assessment & Plan Note - Junie Raygoza MD - 07/22/2025 12:31 AM EDTAssociated Problem(s): Bilateral hand pain From Current exam slight swelling in bl thumbs PIP but not increase skin temp nor erythema ,ROM preserved but elicit pain See by senior rd engineer Lilly Clarke MD in 04/19/2025 for mx joint complaints but seems pt not followup after to f lab results -04/2025 CCP neg,MONTY + 1:80 ,antiDNA neg ,SCL 70 neg,Sjogren neg , RF neg ,uric acid 5.4 Symptoms could be from OA ,will r/o gout but does not appear from clinical picture -CRP,ESR,uric acid ordered today -ordered Bl hand XR -tylenol TID -pxed topical diclofenac -pt will call her senior rd engineer to schedule f up -has apt already scheduled w PCP for 09/13/25 documented in this encounter Plan of Treatment Upcoming Encounters Date Type Department Care Team (Late st Contact Info) Description 08/07/2025 1:30 PM EDT Office Visit [facility] [address] [place] [address] Paz-Connor, Isa, DDS [address] [place] [address] 09/13/2025 3:15 PM EST Office Visit [facility] [address] [place] [address] Shereen Ltaham MD 230 [place], [place] [phone] documented as of this encounter Procedures Procedure Name Priority Date/Time Associated Diagnosis Comments XR HAND 3+ VIEWS BILATERAL Routine 07/20/2025 2:25 PM EDT Pain in both hands SED RATE BY MODIFIED WESTERGREN Routine 07/20/2025 1:55 PM EDT Pain in both hands C-REACTIVE PROTEIN Routine 07/20/2025 1: 55 PM EDT Pain in both hands URIC ACID Routine 07/20/2025 1:55 PM EDT Pain in both hands documented in this encounter Results * XR Hand 3+Views Bilateral (07/20/2025 2:25 PM EDT) Anatomical Region Laterality Modality Upper Extremities, Hand Bilateral [facility] 07/20/2025 2:25 PM EDT Narrative 07/20/2025 2:41 PM EDT [facility] [address] [place] [id number] XRay Report Signed Patient: Azra Cast MR#: [id number] : 1975 Acct:[id number] Age/Sex: 49 / F ADM Date: 07/20/25 Loc: [facility] Attending Dr: Shereen Latham MD Ordering Physician: Junie Padron MD Date of Service: 07/20/25 Procedure(s): XR Hand Bilat min 3v Accession Number(s): [id number] cc: Shereen Latham MD; Junie Padron MD Reason for Exam: bl thumb pain ongoing EXAMINATION: XR HAND 3 VIEWS BILATERAL CLINICAL INFORMATION: bl thumb pain ongoing COMPARISON: None available. TECHNIQUE: PA, lateral, and oblique views of the right left hands. FINDINGS: Normal alignment. No erosions or fractures. Joint spaces are preserved. No abnormal soft tissue calcification. XR/XR Hand Bilat min 3v IMPRESSION: Unremarkable examination. Electronically signed by: Julian Garcia MD 07/20/2025 02:38 PM EDT RP Dictated By: Julian Garcia MD Signed By: <Electronically signed by Julian Garcia MD in OV> 07/20/25 1438 DD/ 1425 TD/TT: 07/20/25 1427 News Analyst: Procedure Note Donotuseinterpreter, Image - 07/20/2025 [place] [id number] XRay Report Signed Patient: Maged Cast#: [id number] : 1975Acct:[id number] Age/Sex: 49 / FADM Date: 07/20/25 Loc: [facility] Attending Dr: Shereen Latham MD Ordering Physician: Junie Padron MD Date of Service: 07/20/25 Procedure(s): XR Hand Bilat min 3v Accession Number(s): [id number] cc: Shereen Latham MD; Junie Padron MD Reason for Exam: bl thumb pain ongoing EXAMINATION: XR HAND 3 VIEWS BILATERAL CLINICAL INFORMATION: bl thumb pain ongoing COMPARISON: None available. TECHNIQUE: PA, lateral, and oblique views of the right left hands. FINDINGS: Normal alignment. No erosions or fractures. Joint spaces are preserved. No abnormal soft tissue calcification. XR/XR Hand Bilat min 3v IMPRESSION: Unremarkable examination. Electronically signed by: Julian Garcia MD 07/20/2025 02:38 PM EDT RP Dictated By: Julian Garcia MD Signed By: <Electronically signed by Julian Garcia MD in OV> 07/20/25 1438 DD/ 1425 TD/TT: 07/20/25 142 News Analyst: us Junie Raygoza MD IMG XR PROCEDURES Final Result * Uric acid (07/20/2025 1:55 PM EDT) Uric Acid 5.7 2.4 - 5.7 mg/dL [facility] Blood Venous blood specimen / Unknown 07/20/2025 1:55 PM EDT 07/20/2025 4:46 PM EDT us Junie Raygoza MD LAB BLOOD ORDERAB LES Final Result Performing Organization Address City/[facility]/ZIP Co de Phone Number [facility] [address] [place] [phone] * (ABNORMAL) Sed Rate by Modified Souravren (07/20/2025 1:55 PM EDT) Erythrocyte Sedimentation Rate 34(H) 0 - 20 MM/HR [facility] Comment:Patients with polycy themia and many hemoglobin abnormalitiesmay have depressed sed rates whereas patients with anemiamay have elevated sed rates. Blood Venous blood specimen / Unknown 07/20/2025 1:55 PM EDT 07/20/2025 4:03 PM EDT us Junie Raygoza MD LAB BLOOD ORDERAB LES Final Result Performing Organization Address City/[facility]/ZIP Co de Phone Number [facility] [address] [place] [phone] * (ABNORMAL) C-reactive Protein (07/20/2025 1:55 PM EDT) C Reactive Protein 2.46(H) < or = 0.50 mg/dL [facility] Blood Venous blood specimen / Unknown 07/20/2025 1:55 PM EDT 07/20/2025 4:46 PM EDT Junie Raygoza MD LAB BLOOD ORDERAB LES Final Result [facility] [address] [place] [phone] [phone] documented in this encounter Visit Diagnoses Diagnosis Pain in both hands- Primary Bilateral hand pain documented in this encounter Additional Health Concerns Assessment Noted Time PHQ-9 Depression Total Score: 21 025 11:03 AM EDT documented as of this encounter Care Teams Stunner Animal Relationship Specialty Start Date End Date Shereen Latham MD [address] [place] [address] PCP - General Family Medicine 11/02/18 Sury Benitez [address] [place] [address] Dr [facility] [address] [place] [address] Pulmonary Disease 09/27/24 Nirali Madrid OD [address] [place] [address] Optometry 10/27/24 Li Grande MD [address] [place] [address] Hematology and Oncology 10/27/24 Anselmo Gates MD [address] [place] [address] Orthopaedic Surgery 10/27/24 Margaret Holman [address] 3rd [place] [address] Cardiology 10/27/24 Herberth Stokes MD [address] 3rd [place] [address] Gastroenterology 10/27/24 Hilton Palacios MD [address] [place] [address], [address] [place] [address] Neurology 02/06/25 Aaron Pringle MD [address] [place] [address] Drive 3rd [place] [address] General Surgery 03/07/25 Pily Delaney Tool Designer ApprenticeBoxer Operator 07/22/24 Elie Vicky [facility] Psychology 12/29/24 documented as of this encounter
--- NOTE | 2025-07-25 14:57 | MHC.OFFVIS ---
Vital Signs 07/25/25 15:11 Height 5 ft 7 in Weight 200 lb BMI 31.3 Intake Visit Reasons: OV- Bilateral Thumb Pain Intake Note: Azra is a 49 year old right hand dominant female who presents today for follow up of her bilateral thumb pain. Patient complains of worsening pain, primarily affecting her left thumb at the IP ajoint. She also complains of locking at catching of multiple fingers, as well as a left trigger thumb. She has been taking Tylenol without relief. She has not tried bracing or occupatonal therapy. Patient reports history of arthritis but has not seen her rheuamtologist for this. Allergies amoxicillin (AMOXICILLIN) Allergy (Intermediate, Verified 08/01/25 10:48) rash, rash/itching sulfamethoxazole (From BACTRIM) Allergy (Intermediate, Verified 08/01/25 10:48) RASH trimethoprim (From BACTRIM) Allergy (Intermediate, Verified 08/01/25 10:48) RASH hydrocodone (Hydrocodone) Allergy (Mild, Verified 08/01/25 10:48) ITCH ibuprofen (From Motrin) Allergy (Mild, Verified 08/01/25 10:48) UPSET STOMACH latex (Latex) Allergy (Mild, Verified 08/01/25 10:48) ITCH HPI HPI OV- Bilateral Thumb Pain: Details: Azra is a 49 year old right hand dominant female who presents today for follow up of her bilateral thumb pain. Patient complains of worsening pain, primarily affecting her left thumb at the IP ajoint. She also complains of locking at catching of multiple fingers, as well as a left trigger thumb. She has been taking Tylenol without relief. She has not tried bracing or occupatonal therapy. Patient reports history of arthritis but has not seen her rheuamtologist for this. [facility] Medical History Asthma GERD (gastroesophageal reflux disease) CKD (chronic kidney disease) Anemia Cardiomyopathy Gout Pulmonary nodule Arthritis Fibromyalgia Anxiety and depression Lower back pain Panic attack H/O ETOH abuse Breast cancer Hypertension Surgical History History of lumpectomy of left breast (06/28/25) Hx of knee surgery Hx of right mastectomy H/O colonoscopy History of carpal tunnel release Hx of tubal ligation History of breast lump/mass excision H/O: hysterectomy Family History Mother Heart disease Alzheimers disease Father Heart disease Brother Asthma Heart disease Social History Household Members: None Housing: Apartment Housing Other:: 4th floor. No elevator Are you a primary primary care coordinator to a significant other at home: No Do you presently have visiting nurse or other home services: No Alcohol intake: current Alcohol intake frequency: holidays/special occasions only Alcohol type: hard liquor Comment: counts correct Patient Tobacco Use Status: Current everyday Tobacco user Tobacco use type: Cigarette Years Smoked: 38YRS e-Cigarette/Vaping Use: Never Used Second Hand Smoke Exposure: Yes Use of substances other than those prescribed or required for medical reasons: No Do you feel safe in your current relationship?: Yes Advance Directives Date on File: 02/11/22 Do you have thoughts of harming others: None Do you have a plan to hurt others: No Plan Recently lost weight without trying: No Patient : No service: No Current occupational status: disabled Gender identity: Female Female Reproductive History Menstrual Age of Menarche: 7 Physical Exam Vital Signs: BMI result Body Mass Index 31.3 Extrem Other: Patient is alert, oriented, and in no acute distress. Neuro: Normal sensation of the tips of all digits of the bilateral hand at this time Vascular: Cap refill brisk Pain: Tenderness to palpation of the A1 kushal of the left thumb Pain associated with locking and catching of the left thumb ROM: There is a visible and palpable locking and catching of the left thumb in a flexed position Patient is able to flex and extend all of the digits of bilateral hands in the office today fully and without difficulty Skin: No lacerations or abrasions. General: No ecchymosis, erythema, or evidence of infection. Psych: Appears grossly normal Affect normal Attitude cooperative Office Procedures AMB Tendon Injection Tendon Injection [id number] Tendon Sheath Injection All charges added?: Procedure code (CPT) selection complete Assessment & Plan Assessment & Plan (1) Trigger thumb, left thumb: Code(s): M65.312 - Trigger thumb, left thumb Category: Medical Plan 1. Left trigger thumb Patient is educated about this condition Patient is educated about the treatment options available Patient would like to proceed with steroid injection The risks and benefits of a steroid injection including but not limited to risk of damage to blood vessels, nerves, tendons, infection, skin bleaching, failure to improve symptoms, increased pain, and possible need for further injections or other intervention were discussed with the patient and the patient wishes to proceed with the steroid injection. Once consent was obtained, I sterilely prepped the area over the A1 kushal of the flexor tendon sheath of the left thumb. I then injected the flexor tendon sheath with a combination of 1 mL of dexamethasone (4mg/ml), and 1% lidocaine. The patient tolerated the procedure well with no complications. If the patient continues to have locking and catching 4-6 weeks following this injection, they may call to schedule appointment to discuss alternative treatment options Follow-up prn Coding Level of Care Code Est Pt Level 3 (79812) Diagnoses Trigger thumb, left thumb M65.312 CPT Codes Tendon Injection - Tendon Injection 1: [id number] Tendon Sheath Injection ([id number])
[2025-07-25 15:11] VITALS: BMI 31.3
--- OUTSIDE RECORDS SUMMARY | 2025-07-25 17:55 | XMS_ITS | Encounter Summary ---
Author Organization [employer] Address [address] [place] [address] 7 [place] [address] Care Team Providers Care Warp Tying Machine Knotter Name Role Phone Shereen Latham MD Primary Care Provider [phone] Nupur Bullock PharmD Unavailable Sury Benitez Unavailable [phone] JuliusLester castellanosn OD Unavailable Li Grande MD Unavailable [phone] Anselmo Gates MD Unavailable Margaret Holman Unavailable Herberth Stokes MD Unavailable [phone] Hilton Palacios MD Unavailable Aaron Pringle MD Unavailable [phone] Lori Batista Unavailable [phone] Neelima Raygoza Unavailable Reason for Visit * Reason Onset Date Comments Nurse Triage 01/25/2024 Referral 01/25/2024 Encounter Details Date Type Department Care Team (Late st Contact Info) Description 01/25/2024 Telephone [facility] MEDICINE [address] [place], [place] [phone] Shereen Latham MD [address] [place], [place] [phone] Nurse Triage; Referral Social History Tobacco Use [...] still 3 01/28/2024 1:56 PM EDT Marga Lawrecnesa Becoming easily annoyed or irritable 3 01/01 [...] vary. Pt wants to be referred to [address] [address] Adivsed will send to team to review [...] 08/07/2025 1:30 PM EDT Office Visit [facility] ADULT DENTAL [address] [place] [address] Rj Isa, DDS [address] [place] [address] 09/13/2025 3:15 PM EST Office Visit [facility] MEDICINE [address] [place] [address] Shereen Latham MD [address] [place] [address] documented as of this encounter Visit Diagnoses Not on filedocumented in this encounter Additional Health Concerns Assessment Noted Time PHQ-9 Depression Total Score: 21 023 10:42 AM EST documented as of this encounter Care Teams Warp Tying Machine Knotter Relationship Specialty Start Date End Date Shereen Latham MD [address] [place] [address] PCP - General Family Medicine 11/02/18 Nupur Bullock PharmD [address] [place] [address] Pharmacist Internal Medicine 08/09/24 05/15/25 Sury Benitez [address] [place] [address] Pulmonary Disease 09/27/24 Nirali Madrid OD [address] [place] [address] Optometry 10/27/24 Li Grande MD [address] [place] [address] Hematology and Oncology 10/27/24 Anselmo Gates MD [address] [place] [address] Orthopaedic Surgery 10/27/24 Margaret Holman [address] 3rd Floor [place] [address] Cardiology 10/27/24 Herberth Stokes MD [address]rd [place] [address] Gastroenterology 10/27/24 Hilton Palacios MD [address] [facility] [address] [place] [address] Neurology 02/06/25 Aaron Pringle MD [address]rd [place] [address] General Surgery 03/07/25 Lori Batista Registered Nurse 06/15/25 06/15/25 Neelima Raygoza 06/15/25 06/16/25 Pily Delaney Finance DirectorSales Engineer Engineered Products 07/22/24 Elie Vicky [facility] 12/29/24 documented as of this encounter
--- OUTSIDE RECORDS SUMMARY | 2025-07-25 17:55 | XMS_ITS | Encounter Summary ---
Author Organization [employer] Address [address] [facility] 7t [place] [address] Care Team Providers Care Architectural Drafter Name Role Phone Noa, Shereen NOLASCO Primary Care Provider [phone] Nupur Bullock PharmD Unavailable [phone] Sury Benitez Unavailable [phone] Julius, Nirali OD Unavailable Li Grande MD Unavailable [phone] Anselmo Gates MD Unavailable Margaret Holman Unavailable Herberth Stokes MD Unavailable [phone] Hilton Palacios MD Unavailable Aaron Pringle MD Unavailable Lori Batista Unavailable [phone] Neelima Raygoza Unavailable Encounter Details Date Type Department Care Team (Latest Contact Info) Description 08/16/2021 Abstract [facility] CONVERSIONS Dental, Provider, DDS Social History [...] 08/07/2025 1:30 PM EDT Office Visit [facility] ADULT DENTAL [address] [place] [address] Paz-Connor, Isa, DDS 230 [place] [address] 09/13/2025 3:15 PM EST Office Visit [facility] MEDICINE [address] [place] [address] Shereen Latham MD [address] [place] [address] documented as of this encounter Visit Diagnoses Not on filedocumented in this encounter Care Teams Architectural Drafter Relationship Specialty Start Date End Date Shereen Latham MD [address] [place] [address] PCP - General Family Medicine 11/02/18 Nupur Bullock, CharleneD [address] [place] [address] Pharmacist Internal Medicine 08/09/24 05/15/25 Sury Benitez [address] [place] [address] [address] Pulmonary Disease 09/27/24 Nirali Madrid OD [address] [place] [address] Optometry 10/27/24 Li Grande MD [address] [place] [address] Hematology and Oncology 10/27/24 Anselmo Gates MD [address] [place] [address] Orthopaedic Surgery 10/27/24 Margaret Holman [address] 3rd [place] [address] Cardiology 10/27/24 Herberth Stokes MD [address] 3rd [place] [address] Gastroenterology 10/27/24 Hilton Palacios MD [address] [place] [address] Neurology 02/06/25 Aaron Pringle MD [address] 3rd [facility] [place] [address] General Surgery 03/07/25 Lori Batista Registered Nurse 06/15/25 06/15/25 Neelima Raygoza 06/15/25 06/16/25 Pily Delaney Leasing RepresentativeCan Carrier 07/22/24 Elie Vicky [facility] 12/29/24 documented as of this encounter
--- OUTSIDE RECORDS SUMMARY | 2025-07-25 17:55 | XMS_ITS | Encounter Summary ---
Author Organization [employer] Address [address] [facility] 7 [place] [address] Care Team Providers Care Material Attendant Name Role Phone Shereen Latham MD Primary Care Provider [phone] Nupur Bullock PharmD Unavailable Sury Benitez Unavailable [phone] Julius, Nirali OD Unavailable Li Grande MD Unavailable [phone] Anselmo Gates MD Unavailable Margaret Holman Unavailable Herberth Stokes MD Unavailable [phone] Hilton Palacios MD Unavailable Aaron Pringle MD Unavailable [phone] Lori Batista Unavailable [phone] Neelima Raygoza Unavailable Reason for Visit * Reason Comments Med Refill Encounter Details Date Type Department Care Team (Late st Contact Info) Description 06/21/2024 Refill [facility] MED & PEDS [address] [place], [place] [phone] Shereen Latham MD 230 [place], [place] [phone] Mild intermittent asthma, unspecified whether complicated; Pain [...] Description 08/07/2025 1:30 PM EDT Office Visit [facility] ADULT DENTAL [address] [place] [address] Paz-Connor, Isa, DDS 230 [place] [address] 09/13/2025 3:15 PM EST Office Visit [facility] MEDICINE [address] [place] [address] hSereen Latham MD [address] [place] [address] documented as of this encounter Visit Diagnoses Diagnosis Mild intermittent asthma, unspecified whether complicated Pain Generalized pain documented in this encounter Additional Health Concerns Assessment Noted Time PHQ-9 Depression Total Score: 13 024 4:53 PM EDT documented as of this encounter Care Teams Material Attendant Relationship Specialty Start Date End Date Shereen Latham MD [address] [place] [address] PCP - General Family Medicine 11/02/18 Nupur Bullock, CharleneD [address] [place] [address] Pharmacist Internal Medicine 08/09/24 05/15/25 Sury Benitez [address] [place] [address] [place] [address] [place] [address] Pulmonary Disease 09/27/24 Nirali Madrid OD [address] [place] [address] Optometry 10/27/24 Li Grande MD [address] [place] [address] Hematology and Oncology 10/27/24 Anselmo Gates MD [address] [place] [address] Orthopaedic Surgery 10/27/24 Margaret Holman [address] 3rd [place] [address] Cardiology 10/27/24 Herberth Stokes MD 11 [facility] 3rd [place] [address] Gastroenterology 10/27/24 Hilton Palacios MD 15 [facility], [address] [place] [address] Neurology 02/06/25 Aaron Pringle MD [address] [facility] [address] [place] [address] General Surgery 03/07/25 Lori Batista Registered Nurse 06/15/25 06/15/25 Neelima Raygoza 06/15/25 06/16/25 Pily Delaney Crystal Report DeveloperSoftware Administrator 07/22/24 Elie Vicky [facility] 12/29/24 documented as of this encounter
--- OUTSIDE RECORDS SUMMARY | 2025-07-25 17:55 | XMS_ITS | Encounter Summary ---
Author Organization [employer] Address [address] [place] [address] 7 [place] [address] Care Team Providers Care Dispensing Operator Name Role Phone Shereen Latham MD Primary Care Provider [phone] Nupur Bullock PharmD Unavailable Sury Benitez Unavailable [phone] JuliusLester castellanosn OD Unavailable Li Graned MD Unavailable [phone] Anselmo Gates MD Unavailable Margaret Holman Unavailable Herberth Stokes MD Unavailable [phone] Hilton Palacios MD Unavailable [phone] Aaron Pringle MD Unavailable [phone] Lori Batista Unavailable [phone] Neelima Raygoza Unavailable Reason for Visit * Reason Onset Date Comments Medication Question 07/05/2024 Encounter Details Date Type Department Care Team ([facility] st Contact Info) Description 07/05/2024 Telephone [facility] MEDICINE 230 [place], [place] [phone] Shereen Latham MD [address] [place], [place] [phone] Medication Question Social History Tobacco Use Types [...] the past 12 months, has t he [employer], gas, oil or water [employer] threatened to shut off services in your [...] is no medication interaction. Contact pt at [phone] documented in this encounter Plan of Treatment Upcoming Encounters Date Type Department Care Team (Late st Contact Info) Description 08/07/2025 1:30 PM EDT Office Visit [facility] ADULT DENTAL [address] [place] [address] Paz-Connor, Isa, DDS [address] [place] [address] 09/13/2025 3:15 PM EST Office Visit [facility] MEDICINE [address] [place] [address] Shereen Latham MD [address] [place] [address] documented as of this encounter Visit Diagnoses Diagnosis Pain Generalized pain documented in this encounter Additional Health Concerns Assessment Noted Time PHQ-9 Depression Total Score: 13 08 024 4:53 PM EDT documented as of this encounter Care Teams Dispensing Operator Relationship Specialty Start Date End Date Shereen Latham MD [address] [place] [address] PCP - General Family Medicine 11/02/18 Nupur Bullock, Pushpa [address] [place] [address] Pharmacist Internal Medicine 08/09/24 05/15/25 Sury Benitez [address] [place] [address] [address] [place] [address] Pulmonary Disease 09/27/24 Nirali Madrid OD [address] [place] [address] Optometry 10/27/24 Li Grande MD [address] [place] [address] Hematology and Oncology 10/27/24 Anselmo Gates MD 10 [facility] 203 [place] [address] Orthopaedic Surgery 10/27/24 Margaret Holman 11 [facility] 3rd [place] [address] Cardiology 10/27/24 Herberth Stokes MD [address] [address] Gastroenterology 10/27/24 Hilton Palacios MD 15 [facility], [address] [place] [address] Neurology 02/06/25 Aaron Pringle MD 11 [facility] [address] [place] [address] General Surgery 03/07/25 Lori Batista Registered Nurse 06/15/25 06/15/25 Neelima Raygoza 06/15/25 06/16/25 Pily Delaney Shop EstimatorBirth Certificate Clerk 07/22/24 Elie Vicky [facility] Psychology 12/29/24 documented as of this encounter
--- OUTSIDE RECORDS SUMMARY | 2025-07-25 17:55 | XMS_ITS | Encounter Summary ---
Author Organization [employer] Address [address] [place] [address] 7 [place] [address] Care Team Providers Care Orderly Name Role Phone Shereen Latham MD Primary Care Provider [phone] Nupur Bullock PharmD Unavailable Sury Benitez Unavailable [phone] Julius, Nirali OD Unavailable Li Grande MD Unavailable [phone] Anselmo Gates MD Unavailable Margaret Holman Unavailable Herberth Stokes MD Unavailable [phone] Hilton Palacios MD Unavailable Aaron Pringle MD Unavailable [phone] Lori Batista Unavailable [phone] Neelima Raygoza Unavailable Reason for Visit * Reason Onset Date Comments ER Follow-up 12/07/2024 Encounter Details Date Type Department Care Team (Late st Contact Info) Description 12/07/2024 Telephone [facility] MEDICINE 230 [place], [place] [phone] Shereen Latham MD 230 [place] [address] ER Follow-up Social History Tobacco [...] the past 12 months, has t he [employer], gas, oil or water company threatened to [...] placed to pt [place] f[place] [facility] [place]06[place]24 for right [...] ED visit on : Date: 12/06/24 Hospital: [facility] Seen for: Flu Patient advised will forward to team nurse for follow up documented in this encounter Plan of Treatment Upcoming Encounters Date Type Department Care Team (Late st Contact Info) Description 08/07/2025 1:30 PM EDT Office Visit [facility] ADULT DENTAL [address] [place] [address] Paz-Connor, Isa, DDS 230 [place] [address] 09/13/2025 3:15 PM EST Office Visit [facility] MEDICINE [address] [place] [address] Shereen Latham MD 230 [place] [address] documented as of this encounter Visit Diagnoses Not on filedocumented in this encounter Additional Health Concerns Assessment Noted Time PHQ-9 Depression Total Score: 13 024 4:53 PM EDT documented as of this encounter Care Teams Orderly Relationship Specialty Start Date End Date Shereen Latham MD 230 [place] [address] PCP - General Family Medicine 11/02/18 Nupur Bullock, CharleneD 230 [place] [address] Pharmacist Internal Medicine 08/09/24 05/15/25 Sury Benitez [address] [place] [address] [address] [place] [address] Pulmonary Disease 09/27/24 Nirali Madrid OD [address] [place] [address] Optometry 10/27/24 Li Grande MD [address] [place] [address] Hematology and Oncology 10/27/24 Anselmo Gates MD [address] [place] [address] Orthopaedic Surgery 10/27/24 Margaret Holman 11 [facility] 3rd [place] [address] Cardiology 10/27/24 Herberth Stokes MD 11 [facility] 3rd [place] [address] Gastroenterology 10/27/24 Hilton Palacios MD [address] [facility], [address] [place] [address] Neurology 02/06/25 Aaron Pringle MD 11 [facility] 3rd [place] [address] General Surgery 03/07/25 Lori Batista Registered Nurse 06/15/25 06/15/25 Neelima Raygoza 06/15/25 06/16/25 Pily Delaney Management SupervisorCost Accounting Clerk 07/22/24 Elie Vicky [facility] Psychology 12/29/24 documented as of this encounter
--- OUTSIDE RECORDS SUMMARY | 2025-07-25 17:55 | XMS_ITS | Encounter Summary ---
Author Organization [employer] Address 75 [facility] 7t [place] [address] Care Team Providers Care Laser/Electro Optics Technician Name Role Phone [place], Shereen NOLASCO Primary Care Provider [phone] Sury Benitez Unavailable [phone] Nirali Madrid OD Unavailable Li Grande MD Unavailable [phone] Anselmo Gates MD Unavailable Margaret Holman Unavailable Herberth Stokes MD Unavailable [phone] Hilton Palacios MD Unavailable [phone] Aaron Pringle MD Unavailable [phone] Reason for Visit * Reason Onset Date Comments Results 07/20/2025 Encounter Details Date Type Department Care Team (Late st Contact Info) Description 07/20/2025 Results Follow-Up [facility] [address] [place], [place] [phone] Junie Padron MD 230 [place] [address] C-reactive Protein, Sed Rate by Modified Westergren, Uric acid, XR Hand 3+Views Bilateral Social History Tobacco Use Types Packs/Day Years [...] encounter Miscellaneous Notes * Telephone Encounter - Jaki Yadav RN - 07/21/2025 1:16 PM EDT Call received from Patient. Patient informed per recent labs and imaging results: inflammatory markers are elevated but improved since a year ago , uric acid is normal, Bilateral Hand XR normal. Patient advised to schedule follow up appt with her freight rate specialist. Patient verbalized understanding and agreement, denied any questions or concerns. * Telephone Encounter - Jaki Yadav RN - 07/21/2025 11:50 AM EDT Call attempted to Patient to review previous messages. No answer, voicemail left requesting a return call to [place] Team Nurses. ----- Message from Junie Raygoza MD sent at 07/20/2025 9:05 PM EDT ----- Please inform pt her inflammatory markers are elevated but improved since a year ago , uric acid isnormal Please reinforce pt to schedule follow up apt w her freight rate specialist Thanks XR Hand Bilat : normal Please inform pt normal bl hand Xrs To continue plan as rec today and to see her freight rate specialist Thanks XR Hand 3+Views Bilateral * Result Encounter Note - Junie Raygoza MD - 07/20/2025 9:07 PM EDT XR Hand Bilat : normal Please inform pt normal bl hand Xrs To continue plan as rec today and to see her freight rate specialist Thanks * Result Encounter Note - Junie Raygoza MD - 07/20/2025 9:05 PM EDT Please inform pt her inflammatory markers are elevated but improved since a year ago , uric acid isnormal Please reinforce pt to schedule follow up apt w her freight rate specialist Thanks documented in this encounter Plan of Treatment Upcoming Encounters Date Type Department Care Team (Late st Contact Info) Description 08/07/2025 1:30 PM EDT Office Visit [facility] [address] [place] [address] Paz-Connor, Isa, DDS 230 [place] [address] 09/13/2025 3:15 PM EST Office Visit [facility] 230 [place] [address] Shereen Latham MD 230 [place] [address] documented as of this encounter Visit Diagnoses Not on filedocumented in this encounter Additional Health Concerns Assessment Noted Time PHQ-9 Depression Total Score: 21 025 11:03 AM EDT documented as of this encounter Care Teams Laser/Electro Optics Technician Relationship Specialty Start Date End Date Shereen Latham MD [address] [place] [address] PCP - General Family Medicine 11/02/18 Sury Benitez [address] [place] [address] Dr [facility] [address] [place] [address] Pulmonary Disease 09/27/24 Nirali Madrid OD [address] [place] [address] Optometry 10/27/24 Li Grande MD [address] [place] [address] Hematology and Oncology 10/27/24 Anselmo Gates MD [address] [place] [address] Orthopaedic Surgery 10/27/24 Margaret Holman [address] 3rd [place] [address] Cardiology 10/27/24 Herberth Stokes MD [address] 3rd [place] [address] Gastroenterology 10/27/24 Hilton Palacios MD [address] [place] [address], [address] [place] [address] Neurology 02/06/25 Aaron Pringle MD [address] [place] [address] Drive [address]rd [place] [address] General Surgery 03/07/25 Pily Delaney Laundry Tub MakerDirector Of Cardiopulmonary Services 07/22/24 Elie Vicky [facility] Psychology 12/29/24 documented as of this encounter
--- OUTSIDE RECORDS SUMMARY | 2025-07-25 17:55 | XMS_ITS | Encounter Summary ---
Author Organization [employer] Address 75 [facility] 7t [place] [address] Care Team Providers Care Aircraft Electrical Systems Specialist Name Role Phone Shereen Latham MD Primary Care Provider [phone] Nupur Bullock PharmD Unavailable Sury Benitez Unavailable [phone] Julius, Nirali OD Unavailable Li Grande MD Unavailable [phone] Anselmo Gates MD Unavailable Margaret Holman Unavailable Herberth Stokes MD Unavailable [phone] Hilton Palacios MD Unavailable Aaron Pringle MD Unavailable [phone] Lori Batista Unavailable [phone] Neelima Raygoza Unavailable Encounter Details Date Type Department Care Team (Late st Contact Info) Description 11/16/2022 Abstract [facility] 230 [place], [place] [phone] Shereen Latham MD 230 [place], [place] [phone] Social History Tobacco Use Types Packs/Day Years [...] Per Dr. Krish Loomis's note from [facility] LUBRICATION SERVICER, pt was due for repeat colposcopy in [...] Problem(s): Hyperaldosteronism (CMS/HCC) (Resolved 07/29/2023) Seen by [facility] Endocrinology 04/03/2022. Initially seen 12/2021 for hyperaldosteronism. Labs [facility] 10[place]2021 aldosterone 8, plasma renin 0.11, aldosterone/renin 72.7. She was likely on spironolactone and lisinopril at time of labs. Advise no spironolactone for 6 weeks and recheck renin aldosterone levels with renal panel and magnesium in early childhood education instructor. 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 -S/p RIGHT mastectomy with sentinel node bx by Dr. Prescott [facility] -Adriamycin/Cytoxan based chemotherapy started Oct, [...] ultrasound sound for abdominal pain at [facility]. Ultrasound showed diffusely echogenic parenchyma with focal sparing around the gallbladder. No suspicious lesions. Impression showed liver likely representing hepatic steatosis and non- obstructing right kidney stone. documented in this encounter Plan of Treatment Upcoming Encounters Date Type Department Care Team (Late st Contact Info) Description 08/07/2025 1:30 PM EDT Office Visit [facility] ADULT DENTAL [address] [place] [address] Paz-Connor, Isa, DDS 230 [place] [address] 09/13/2025 3:15 PM EST Office Visit [facility] [address] [place] [address] Shereen Latham MD [address] [place] [address] documented as of this encounter Visit Diagnoses Not on filedocumented in this encounter Care Teams Aircraft Electrical Systems Specialist Relationship Specialty Start Date End Date Shereen Latham MD 230 [place] [address] PCP - General Family Medicine 11/02/18 Nupur Bullock PharmD 230 [place] [address] Pharmacist Internal Medicine 08/09/24 05/15/25 Sury Benitez [address] [place] [address] Dr [address] [place] [address] Pulmonary Disease 09/27/24 Nirali Madrid, SUSAN 267 [place] [address] Optometry 10/27/24 Li Grande MD 575 [place] [address] Hematology and Oncology 10/27/24 Anselmo Gates MD [address] [place] [address] Orthopaedic Surgery 10/27/24 Margaret Holman [address] 3rd [place] [address] Cardiology 10/27/24 Herberth Stokes MD [address] 3rd [place] [address] Gastroenterology 10/27/24 Hilton Palacios MD [address] [facility], [address] [place] [address] Neurology 02/06/25 Aaron Pringle MD [address] [place] [address] General Surgery 03/07/25 Lori Batista Registered Nurse 06/15/25 06/15/25 Neelima Raygoza 06/15/25 06/16/25 Pily Delaney Higher Education AdministratorNursing Secretary 07/22/24 Elie BRASHER [facility] Psychology 12/29/24 documented as of this encounter
--- OUTSIDE RECORDS SUMMARY | 2025-07-25 17:55 | XMS_ITS | Encounter Summary ---
Author Organization [employer] Address [address] [place] [address] 7 [place] [address] Care Team Providers Care Executive Staff Assistant Name Role Phone Shereen Latham MD Primary Care Provider [phone] Nupur Bullock PharmD Unavailable Sury Benitez Unavailable Julius, Nirali OD Unavailable Li Grande MD Unavailable [phone] Anselmo Gates MD Unavailable Margaret Holman Unavailable Herberth Stokes MD Unavailable [phone] Hilton Palacios MD Unavailable Aaron Pringle MD Unavailable [phone] Lori Batista Unavailable [phone] Neelima Raygoza Unavailable Reason for Visit * Reason Onset Date Comments Appointment Request 04/25/2025 Encounter Details Date Type Department Care Team (Late st Contact Info) Description 04/25/2025 Telephone [facility] 230 [place], [place] [phone] Shereen Latham MD 230 [place], [place] [phone] Appointment Request Social History Tobacco Use Types [...] 08/07/2025 1:30 PM EDT Office Visit [facility] ADULT DENTAL 230 [place] [address] Paz-ConnorAlfredo abarcafemia, DDS 230 [place] [address] 09/13/2025 3:15 PM EST Office Visit [facility] 230 [place] [address] Shereen Latham MD [address] [place] [address] documented as of this encounter Visit Diagnoses Not on filedocumented in this encounter Additional Health Concerns Assessment Noted Time PHQ-9 Depression Total Score: 22 12/29/ 025 10:17 AM EST documented as of this encounter Care Teams Executive Staff Assistant Relationship Specialty Start Date End Date Shereen Latham MD [address] [place] [address] PCP - General Family Medicine 11/02/18 Nupur Bullock, CharleneD [address] [place] [address] Pharmacist Internal Medicine 08/09/24 05/15/25 Sury Benitez [address] [place] [address] [place] [address] Pulmonary Disease 09/27/24 Nirali Madrid OD [address] [place] [address] Optometry 10/27/24 Li Grande MD 575 [place] [address] Hematology and Oncology 10/27/24 Anselmo Gates MD [address] [place] [address] Orthopaedic Surgery 10/27/24 Margaret Holman [address] 3rd [place] [address] Cardiology 10/27/24 Herberth Stokes MD [address] [facility] [address] [place] [address] Gastroenterology 10/27/24 Hilton Palacios MD 15 [facility], [address] [place] [address] Neurology 02/06/25 Aaron Pringle MD [address] [place] [address] General Surgery 03/07/25 Lori Batista Registered Nurse 06/15/25 06/15/25 Neelima Raygoza 06/15/25 06/16/25 Pily Delaney Mission CommanderChannel Opener Outsoles 07/22/24 Elie Vicky [facility] Psychology 12/29/24 documented as of this encounter
--- OUTSIDE RECORDS SUMMARY | 2025-07-25 17:55 | XMS_ITS | Encounter Summary ---
Author Organization [employer] Address 75 [facility] 7t [place] [address] Care Team Providers Care Project Engineer Name Role Phone Shereen Latham MD Primary Care Provider [phone] Nupur Bullock PharmD Unavailable Sury Benitez Unavailable [phone] Julius, Nirali OD Unavailable Li Grande MD Unavailable [phone] Anselmo Gates MD Unavailable Margaret Holman Unavailable Herberth Stokes MD Unavailable [phone] Hilton Palacios MD Unavailable Aaron Pringle MD Unavailable [phone] Lori Batista Unavailable [phone] Neelima Raygoza Unavailable Encounter Details Date Type Department Care Team (Late st Contact Info) Description 10/22/2023 Orders Only [facility] 230 [place], [place] [phone] Shereen Latham MD 230 [place], [place] [phone] Vitamin D deficiency Social History Tobacco Use [...] 08/07/2025 1:30 PM EDT Office Visit [facility] [address] [place] [address] Isa De La Rosa DDS [address] [place] [address] 09/13/2025 3:15 PM EST Office Visit [facility] [address] [place] [address] Shereen Latham MD [address] [place] [address] documented as of this encounter Visit Diagnoses Diagnosis Vitamin D deficiency documented in this encounter Additional Health Concerns Assessment Noted Time PHQ-9 Depression Total Score: 023 10:42 AM EST documented as of this encounter Care Teams Project Engineer Relationship Specialty Start Date End Date Shereen Latham MD [address] [place] [address] PCP - General Family Medicine 11/02/18 Nupur Bullock, CharleneD [address] [place] [address] Pharmacist Internal Medicine 08/09/24 05/15/25 Sury Benitez 10 [facility] [address] [place] [address] Pulmonary Disease 09/27/24 Nirali Madrid OD [address] [facility] [place] [address] Optometry 10/27/24 Li Grande MD 575 [place] [address] Hematology and Oncology 10/27/24 Anselmo Gates MD [address] [place] [address] Orthopaedic Surgery 10/27/24 Margaret Holman 11 [facility] 3rd [place] [address] Cardiology 10/27/24 Herberth Stokes MD 11 [facility] 3rd [place] [address] Gastroenterology 10/27/24 Hilton Palacios MD 15 [facility], [address] [place] [address] Neurology 02/06/25 Aaron Pringle MD 11 [facility] 3rd [place] [address] General Surgery 03/07/25 Lori Batista Registered Nurse 06/15/25 06/15/25 Neelima Raygoza 06/15/25 06/16/25 Pily Delaney Internet WebmasterLine Installer Repairer 07/22/24 Elie Vicky [facility] 12/29/24 documented as of this encounter
--- OUTSIDE RECORDS SUMMARY | 2025-07-25 17:55 | XMS_ITS | Encounter Summary ---
Author Organization [employer] Address [address] [place] [address] 7 [place] [address] Care Team Providers Care Shovel Log Loader Operator Name Role Phone Shereen Latham MD Primary Care Provider [phone] Nupur Bullock PharmD Unavailable Sury Benitez Unavailable [phone] Julius, Nirali OD Unavailable Li Grande MD Unavailable [phone] Anselmo Gates MD Unavailable Margaret Holman Unavailable Herberth Stokes MD Unavailable [phone] Hilton Palacios MD Unavailable Aaron Pringle MD Unavailable [phone] Lori Batista Unavailable [phone] Neelima Raygoza Unavailable Reason for Visit * Reason Onset Date Comments Nurse Triage 05/25/2024 Encounter Details Date Type Department Care Team (Late st Contact Info) Description 05/25/[address] [facility] 230 [place], [place] [phone] Shereen Latham MD 230 [place], [place] [phone] Nurse Triage Social History Tobacco Use Types [...] the past 12 months, has t he [employer] oil or water [employer] threatened to shut off services in your [...] . Pt reports Pt was seen in [facility] 05/11/24 for continued leftfoot pain and Pt was seen by client services representative, Leta Lunsford MD 05/11/24 also (report is on the chart). Pt had been advised to stop BP med chlorthalidone per client services representative [facility] because that [...] anxiety. Pt is advised to come to [facility] today , open till 8pm, [...] 08/07/2025 1:30 PM EDT Office Visit [facility] 230 [place] [address] Paz-Connor, Isa, DDS 230 [place] [address] 09/13/2025 3:15 PM EST Office Visit [facility] 230 [place] [address] Shereen Latham MD [address] [place] [address] documented as of this encounter Visit Diagnoses Not on filedocumented in this encounter Additional Health Concerns Assessment Noted Time PHQ-9 Depression Total Score: 22 024 9:12 AM EDT documented as of this encounter Care Teams Shovel Log Loader Operator Relationship Specialty Start Date End Date Shereen Latham MD 230 [place] [address] PCP - General Family Medicine 11/02/18 Nupur Bullock PharmD [address] [place] [address] Pharmacist Internal Medicine 08/09/24 05/15/25 Sury Benitez [address] [place] [address] [place] [address] [place] [address] Pulmonary Disease 09/27/24 Nirali Madrid OD [address] [place] [address] Optometry 10/27/24 Li Grande MD [address] [place] [address] Hematology and Oncology 10/27/24 Anselmo Gates MD [address] [place] [address] Orthopaedic Surgery 10/27/24 Margaret Holman [address] 3rd [place] [address] Cardiology 10/27/24 Herberth Stokes MD [address] 3rd [place] [address] Gastroenterology 10/27/24 Hilton Palacios MD [address] [facility] [address] [place] [address] Neurology 02/06/25 Aaron Pringle MD [address] 3rd [place] [address] General Surgery 03/07/25 Lori Batista Registered Nurse 06/15/25 06/15/25 Neelima Raygoza 06/15/25 06/16/25 Pily Delaney Head Operator SulfideVp Of Technology 07/22/24 Elie Vicky [facility] 12/29/24 documented as of this encounter
--- OUTSIDE RECORDS SUMMARY | 2025-07-25 17:55 | XMS_ITS | Encounter Summary ---
Author Organization [employer] Address 75 [facility] 7t [place] [address] Care Team Providers Care Bleach Liquor Maker Name Role Phone Noa, Shereen NOLASCO Primary Care Provider [phone] Nupur Bullock PharmD Unavailable Sury Benitez Unavailable [phone] Julius, Nirali OD Unavailable Li Grande MD Unavailable [phone] Anselmo Gates MD Unavailable Margaret Holman Unavailable Herberth Stokes MD Unavailable [phone] Hilton Palacios MD Unavailable Aaron Pringle MD Unavailable [phone] Lori Batista Unavailable [phone] Neelima Raygoza Unavailable Encounter Details Date Type Department Care Team (Late st Contact Info) Description 04/26/2024 Orders Only [facility] MEDICINE 230 [place], [place] [phone] Junie Damon MD 230 [place], [place] [phone] Social History Tobacco Use Types Packs/Day Years [...] Upcoming Encounters Date Type Department Care Team ([facility] st Contact Info) Description 08/07/2025 1:30 PM EDT Office Visit [facility] ADULT DENTAL [address] [place] [address] Paz-Connor, Isa, DDS [address] [place] [address] 09/13/2025 3:15 PM EST Office Visit [facility] MEDICINE [address] [place] [address] Shereen Latham MD 230 [place] [address] documented as of this encounter Visit Diagnoses Not on filedocumented in this encounter Additional Health Concerns Assessment Noted Time PHQ-9 Depression Total Score: 024 1:45 PM EDT documented as of this encounter Care Teams Bleach Liquor Maker Relationship Specialty Start Date End Date Shereen Latham MD 230 [place] [address] PCP - General Family Medicine 11/02/18 Nupur Bullock PharmD 230 [place] [address] Pharmacist Internal Medicine 08/09/24 05/15/25 Sury Benitez [address] [place] [address] [facility] [address] [place] [address] Pulmonary Disease 09/27/24 Nirali Madrid OD [address] [place] [address] Optometry 10/27/24 Li Grande MD [address] [place] [address] Hematology and Oncology 10/27/24 Anselmo Gates MD [address] [place] [address] Orthopaedic Surgery 10/27/24 Margaret Holman [address]rd [place] [address] Cardiology 10/27/24 Herberth Stokes MD [address] [place] [address] Gastroenterology 10/27/24 Hilton Palacios MD [address] [place] [address], [address] [place] [address] Neurology 02/06/25 Aaron Pringle MD [address] [place] [address] Drive [address] [facility] [place] [address] General Surgery 03/07/25 Lori Batista Registered Nurse 06/15/25 06/15/25 Neelima Raygoza 06/15/25 06/16/25 Pily Delaney Etcher MachineMarine Pipe Welder 07/22/24 Elie Vicky [facility] 12/29/24 documented as of this encounter
--- OUTSIDE RECORDS SUMMARY | 2025-07-25 17:55 | XMS_ITS | Clinical Summary ---
Author Organization [employer] Address [address] [facility] 7 [place] [address] Care Team Providers Care Residential Interior Designer Name Role Phone Noa, Shereen NOLASCO Primary Care Provider [phone] Sury Benitez Unavailable [phone] Nirali Madrid OD Unavailable Li Grande MD Unavailable [phone] Anselmo Gates MD Unavailable Margaret Holman Unavailable Herberth Stokes MD Unavailable [phone] Hilton Palacios MD Unavailable [phone] Aaron Pringle MD Unavailable [phone] Allergies Active Allergy Reactions Criticality Noted Date Comments Amoxicillin Hives,Itching High 02/21/2014 Other reaction(s): itchy, red skin Other Reaction(s): rash, rash/itching Hydrocodone Hives,Itching Low 12/13/2018 Latex Hives,Itching Low 02/20/2023 Other reaction(s): itching Sulfamethoxazole Rash High 08/09/2015 Trimethoprim Hives,Itching,Rash High 08/09/2015 Medications * This document contains information received from the source organization and may not represent a complete record from that organization. Spacer/Aero-Hold ing Chambers (AeroChamber MV) inhalerIndicatio ns:Mild intermittent reactive airway disease without complication Use as instructed 1 each 2 4 Active lidocaine (Lidoderm) 5 % patchIndications :Chronic pain of both knees APPLY 1 PATCH TOPICALLY TO SKIN, LEAVE ON FOR 12 HOURS AND OFF FOR 12 HOURS DIRECTED NEEDED FOR PAIN 30 patch 3 4 Active Ventolin HFA 108 (90 Base) MCG/ACT inhalerIndicatio ns:Mild intermittent asthma, unspecified whether complicated INHALE 2 PUFFS FOUR TIMES DAILY NEEDED FOR SHORTNESS OF BREATH 18 g 4 Active magnesium oxide (Mag-Ox) 400 MG tabletIndication s:Hypomagnesemia TAKE 1 TABLET BY MOUTH THREE QID 360 tablet 3 5 Active allopurinol (Zyloprim) 100 MG tabletIndication s:Gout, unspecified cause, unspecified chronicity, unspecified site Take 1 tablet (100 mg) by mouth 2 times daily. 180 tablet 3 5 Active omeprazole (PriLOSEC) [address] capsuleIndicatio ns:Gastroesophag eal reflux disease, unspecified whether esophagitis present TAKE 1 CAPSULE BY MOUTH EVERY MORNING BEFORE BREAKFAST 90 capsule 3 5 Active D3-1000 25 MCG (1000 UT) capsuleIndicatio ns:Vitamin D deficiency TAKE 1 CAPSULE BY MOUTH EVERY MORNING 90 capsule 3 5 Active losartan (Cozaar) 25 MG tabletIndication s:Benign essential hypertension TAKE 1 TABLET BY MOUTH TWICE DAILY IN THE MORNING AND IN THE EVENING 180 tablet 3 5 Active sodium chloride ([place]) 0.65 % nasal sprayIndications :Nasal congestion Administer 1 spray into each nostril if needed for congestion. 15 mL 11 5 03/03/20 26 Active cetirizine (ZyrTEC) 10 MG tabletIndication s:Nasal congestion TAKE 1 TABLET BY MOUTH EVERY DAY NEEDED FOR ALLERGIES 90 tablet 3 5 Active furosemide (Lasix) 40 MG tabletIndication s:Benign essential hypertension TAKE 1 TABLET BY MOUTH EVERY MORNING 90 tablet 1 5 Active Acetaminophen Extra Strength 500 MG tabletIndication s:Pain TAKE 1 TABLET BY MOUTH EVERY 6 TO 8 HOURS NEEDED FOR PAIN OR FEVER 60 tablet 5 Active mometasone (Nasonex) 50 MCG/ACT nasal sprayIndications :Nasal congestion Administer 2 sprays into each nostril Once per day for 14 days. 17 g 5 Active metoprolol succinate XL (Toprol-XL) 50 MG 24 hr tabletIndication s:Benign essential hypertension Take 50 mg by mouth in the morning and 50 mg in the evening. Do not crush or chew. Active LORazepam (Ativan) 1 MG tabletIndication s:Anxiety Take 1 mg by mouth if needed each day for anxiety. Active fluticasone-salm eterol (Advair) 115-21 MCG/ACT inhalerIndicatio ns:Mild intermittent reactive airway disease without complication Inhale 2 puffs in the morning and at bedtime. Rinse mouth with water after use to reduce aftertaste and incidence of candidiasis. Do not swallow. Active Diclofenac Sodium 1 % gelIndications:P ain in both hands Apply 1 Application topically if needed each day (bullock pain). 50 g 5 Active Active Problems Problem Noted Date Diagnosed Date Bilateral hand pain 07/22/2025 Assessment & Plan (07/22/2025 12:31 AM EDT): From Current exam slight swelling in bl thumbs PIP but not increase skin temp nor erythema ,ROM preserved but elicit pain See by print traffic manager Lilly Clarke MD in 04/19/2025 for mx joint complaints but seems pt not follow up after to f lab results -04/2025 CCP neg,MONTY + 1:80 ,antiDNA neg ,SCL 70 neg,Sjogren neg , RF neg ,uric acid 5.4 Symptoms could be from OA ,will r/o gout but does not appear from clinical picture -CRP,ESR,uric acid ordered today -ordered Bl hand XR -tylenol TID -pxed topical diclofenac -pt will call her print traffic manager to schedule f up -has apt already scheduled w PCP for 09/13/25 Shortness of breath 06/14/2025 Precordial pain 06/14/2025 [...] being evaluated for tachycardia and has a monitoring specialist in place. I recommended a left breast [...] finding -[facility] biopsy: -Minute focus of atypical ductal hyperplasia. -Focal gynecomastia-like hyperplasia. -Predominantly benign breast tissue and adipose. -Note from Dr. Pringle 03/16/25 revealed a minute focus of atypical ductal hyperplasia. Findings were discussed in detail and I recommended a wider excision to assure complete removal. She is currently being evaluated for tachycardia and has a monitoring specialist in place. I recommended a left breast [...] (06/22/2025 11:51 AM EDT): -per note from Margaretsonali Holman 02/27/25 EKG [...] 04/21/24 with uric acid 7.9 -Seen by print traffic manager Dr. Bernstein 05/11/24 or evaluation of acute gout affecting left foot. -Pt admitted 07/25/24-07/2524 for swelling, pain, and warmth in the right knee. Patient had a low fever (100.3 F) and elevated WBC (42826 cells/uL), CRP, and ESR. Orthopedic surgery consulted [...] daily for prophylaxis -Seen by Dr. Clarke print traffic manager 04/19/25 Continue allopurinol 200 mg daily, plan to repeat acid level before next visit and increase allopurinol titrate allopurinol if needed to reach serum uric acid level <6 mg/dL(2020 [employer] guideline for the management [...] 04/21/24 with uric acid 7.9 -Seen by print traffic manager Dr. Bernstein 05/11/24 or evaluation of acute gout affecting left foot. -Pt admitted 07/25/24-07/2524 for swelling, pain, and warmth in the right knee. Patient had a low fever (100.3 F) and elevated WBC (12839 cells/uL), CRP, and ESR. Orthopedic surgery consulted [...] daily for prophylaxis -Seen by Dr. Clarke print traffic manager 04/19/25 Continue allopurinol 200 mg daily, plan to repeat acid level before next visit and increase allopurinol titrate allopurinol if needed to reach serum uric acid level <6 mg/dL(2020 [employer] guideline for the management [...] 04/21/24 with uric acid 7.9 -Seen by print traffic manager Dr. Bernstein 05/11/24 or evaluation of acute gout affecting left foot. -Pt admitted 07/25/24-07/2524 for swelling, pain, and warmth in the right knee. Patient had a low fever (100.3 F) and elevated WBC (16317 cells/uL), CRP, and ESR. Orthopedic surgery consulted [...] reach serum uric acid level <6 mg/dL(2020 [employer] guideline for the management [...] reach serum uric acid level <6 mg/dL(2020 [employer] guideline for the management [...] 08/24/2024 9:45 AM [address] [facility] (07/25/2024 - 07/27/2024) Patient presented with swelling, pain, and warmth in the right knee. Patient had a low fever (100.3 F) and elevated WBC (49729 cells/uL), CRP, and ESR. Orthopedic surgery consulted [...] mouth once daily for [address] [facility] ED (08/07/2024) Patient [...] failure with reduced EF during admission to [facility] 06/22/24. - She was started on Lasix [...] effusion and indeterminate diastolic function -Seen by [facility] Cardiology 08/01/24 : exercise nuclear stress test [...] until 07/2024. Last echo 06/23/[address] [facility] heart failure admission, [...] failure with reduced EF during admission to [facility] 06/22/24. - She was started on Lasix [...] effusion and indeterminate diastolic function -Seen by [facility] Cardiology 08/01/24 : exercise nuclear stress test [...] until 07/2024. Last echo 06/23/[address] [facility] heart failure admission, [...] with reduced EF during recent admission to [facility] 06/22/24. Pt was volume overloaded therefore treated with IV Lasix, Aldactone and losartan. - an echocardiogram was obtained that showed EF 55-60%, small loculated pericardial effusion and indeterminate diastolic function -patient responded to Lasix, BNP improved from 472 to 105, was followed closely by Cardiology in-patient -referred to Collaborative Drug Therapy Managment Program with our CharleneDKALA for medication management 06/29/24 -referred to Cardiology for f/u 06/29/24 Assessment & Plan (12/29/2024 10:27 AM EST): >>ASSESSMENT AND PLAN FOR HISTORY OF CHRONIC CHF WRITTEN ON 07/13/2024 2:18 PM BY JOLIE Sampson with acute congestive heart failure with reduced EF during recent admission to [facility] 06/22/24. Pt was volume overloaded therefore treated [...] failure with reduced EF during admission to [facility] 06/22/24. - She was started on Lasix [...] effusion and indeterminate diastolic function -Seen by [facility] Cardiology 08/01/24 : exercise nuclear stress test [...] failure with reduced EF during admission to [facility] 06/22/24. - She was started on Lasix [...] effusion and indeterminate diastolic function -Seen by [facility] Cardiology 08/01/24 : exercise nuclear stress test [...] Complex care coordination 01/11/2024 Overview (01/11/2024): -Has MASKING MACHINE OPERATOR services with Chavo Martin is applying [facility] [employer] 01/11/2024 -In our complex care management program -referred to [facility] on 01/04/2024 -Messaged sent to childcare teacher for assistance in care visits Assessment & Plan (06/22/2025 11:51 AM EDT): -Has MASKING MACHINE OPERATOR services with Chavo Martin is applying [employer] 01/11/2024 -In our complex care management program -referred to [facility] on 01/04/2024 -Messaged sent to childcare teacher for assistance in care visits Assessment & Plan (04/26/2025 4:15 PM EDT): -Has MASKING MACHINE OPERATOR services with Chavo Martin is applying [employer] 01/11/2024 -In our complex care management program -referred to [facility] on 01/04/2024 -Messaged sent to childcare teacher for assistance in care visits Assessment & Plan (12/29/2024 10:21 AM EST): -Has MASKING MACHINE OPERATOR services with Chavo Martin is applying [facility] 01/11/2024 -In our complex care management program -referred to [facility] on 01/04/2024 -Messaged sent to childcare teacher for assistance in care visits Assessment & Plan (08/24/2024 9:19 AM EDT): -Has MASKING MACHINE OPERATOR services with Chavo Martin is applying [facility] 01/11/2024 -In our complex care management program -referred to [facility] on 01/04/2024 -Messaged sent to [employer] childcare teacher for assistance in care visits Assessment & Plan (06/29/2024 4:06 PM EDT): -Has MASKING MACHINE OPERATOR services with Chavo -Leonora is applying [facility] 01/11/2024 -In our complex care management program -referred to [facility] on 01/04/2024 -Messaged sent to [employer]3 childcare teacher for assistance in care visits Assessment & Plan (01/11/2024 9:30 AM EDT): -Has MASKING MACHINE OPERATOR services with Chavo -Leonora is applying [facility] 01/11/2024 -In our complex care management program -referred to [facility] on 01/04/2024 -Messaged sent to [employer] childcare teacher for assistance in care visits Generalized [...] Pain Management team and will reconnect with [facility]. Information given to patient. PLAN: (check all that apply) Behavioral Health Integration Plan Self- referred to [facility]/N per patient's preference. Assessment & Plan (11/24/2023 11:53 AM EST): STEFANY-7 Total Score: 21 (10/22/2023 10:44 AM) New/Additional Services needed Off-site services for , Behavioral Health Integration Plan External OP therapy referral , Patient Self Plan Patient to utilize skills provided in intervention , Patient to reach out to [facility] team as needed, and Patient to engage in OP therapy Provided patient with support in scheduling an Intake appt with [facility]. Anemia 07/29/2023 Overview (06/22/2025): Lab Results Component Value Date FERRITIN 144 03/02/2025 FERRITIN 180 11/08/2024 HGB 11.2 (L) 03/02/2025 HGB 11.4 (L) 12/29/2024 HGB 12.5 07/01/2022 HGB 12.2 01/23/2022 HEMATOCRIT 37.0 07/01/2022 HEMATOCRIT 36.0 01/23/2022 Pt does not want to take iron orally, she wants to go back to hematology for transfusion - Iron infusions ordered by Fowl Blood Tester DR. Grande - She recieved two sessions [...] for transfusion - Iron infusions ordered by Fowl Blood Tester DR. Grande - She recieved two sessions [...] for transfusion - Iron infusions ordered by Fowl Blood Tester DR. Grande - She recieved two sessions [...] for transfusion - Iron infusions ordered by Fowl Blood Tester DR. Grande - She recieved two sessions [...] for transfusion - Iron infusions ordered by Fowl Blood Tester DR. Grande - She recieved two sessions [...] due after 06/22/26 -eye care facilitated by [facility] -dental home is [facility] -health care proxy filed 06/29/24 Assessment & Plan (06/22/2025 11:51 AM EDT): -next physical exam due after 06/22/26 -eye care facilitated by [facility] -dental home is [facility] -health care proxy filed 06/29/24 Assessment & Plan (06/29/2024 4:03 PM EDT): -next physical exam due after 06/29/25 -eye care facilitated by [facility] -dental home is [facility] -health care proxy given and [...] had ultrasound sound for abdominal pain at [facility] revealing diffusely echogenic parenchyma with focal [...] had ultrasound sound for abdominal pain at [facility] revealing diffusely echogenic parenchyma with focal [...] had ultrasound sound for abdominal pain at [facility] revealing diffusely echogenic parenchyma with focal [...] had ultrasound sound for abdominal pain at [facility] revealing diffusely echogenic parenchyma with focal [...] had ultrasound sound for abdominal pain at [facility] revealing diffusely echogenic parenchyma with focal [...] ultrasound sound for abdominal pain at [facility]. Ultrasound showed diffusely echogenic parenchyma with focal sparing around the gallbladder. No suspicious lesions. Impression showed liver likely representing hepatic steatosis and non- obstructing right kidney stone. Benign essential hypertension 12/13/2021 Overview (06/22/2025): -Blood pressure is at goal -Continue lifestyle modifications -Continue current medications - Prescribed spironolactone (Aldactone) 25 MG tablet 11/09/24 -06/20/25 occupational health and safety officer held spironolactone Assessment & Plan (06/22/2025 11:51 AM EDT): -Blood pressure is at goal -Continue lifestyle modifications -Continue current medications - Prescribed spironolactone (Aldactone) 25 MG tablet 11/09/24 -06/20/25 occupational health and safety officer held spironolactone Assessment & Plan (04/26/2025 4:15 [...] been referred to [facility] for Support and Recovery but has [...] subsequently declined -Admitted for alcohol detox at [facility] 04/09/24 -reports she is currently not drinking [...] been referred to [facility] for Support and Recovery but has [...] subsequently declined -Admitted for alcohol detox at [facility] 04/09/24 -reports she is currently not drinking [...] been referred to [facility] for Support and Recovery but has [...] subsequently declined -Admitted for alcohol detox at [facility] 04/09/24 -reports she is currently not drinking [...] been referred to [facility] for Support and Recovery but has [...] subsequently declined -Admitted for alcohol detox at [facility] 04/09/24 -reports she is currently not drinking [...] received phenobarb improved her symptoms, patient declined regional vice president life sales help to place her in rehab, [...] received phenobarb improved her symptoms, patient declined regional vice president life sales help to place her in rehab, [...] type, invasive tumor 2.2 cm ER positive, ME positive, HER-2/PEREZ negative, two sentinel nodes negative. -S/[facility]Cytoxan based [facility] started Oct, completed [...] being evaluated for tachycardia and has a monitoring specialist in place. I recommended a left breast [...] recommendation for a sentinel node biopsy made. -[place] biopsy been scheduled for 07/27. If oncotype comes back low, can can get an A.I. Return in a month for a follow-up. 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 -S/p RIGHT mastectomy with sentinel node bx by [facility] -Adriamycin/Cytoxan based chemotherapy started Oct, completed [...] being evaluated for tachycardia and has a monitoring specialist in place. I recommended a left breast [...] type, invasive tumor 2.2 cm ER positive, ME positive, HER-2/PEREZ negative, two sentinel nodes negative. -S/[facility]Cytoxan based chemotherapy started Oct, completed 4 [...] being evaluated for tachycardia and has a monitoring specialist in place. I recommended a left breast [...] type, invasive tumor 2.2 cm ER positive, ME positive, HER-2/PEREZ negative, two sentinel nodes negative. -S/p RIGHT mastectomy with sentinel node bx by [facility] -Adriamycin/Cytoxan based chemotherapy started Oct, completed [...] type, invasive tumor 2.2 cm ER positive, ME positive, HER-2/PEREZ negative, two sentinel nodes negative. -S/p RIGHT mastectomy with sentinel node bx by [facility] -Adriamycin/Cytoxan based chemotherapy started Oct, completed [...] type, invasive tumor 2.2 cm ER positive, ME positive, HER-2/PEREZ negative, two sentinel nodes negative. -S/p RIGHT [facility] with [facility] -Adriamycin/Cytoxan based chemotherapy started Oct, completed 4 [...] type, invasive tumor 2.2 cm ER positive, ME positive, HER-2/PEREZ negative, two sentinel nodes negative. -S/p RIGHT mastectomy with sentinel node bx by [facility] -Adriamycin/Cytoxan based chemotherapy started Oct, completed [...] type, invasive tumor 2.2 cm ER positive, ME positive, HER-2/PEREZ negative, two sentinel nodes negative. -S/p RIGHT mastectomy with sentinel node bx by [facility] -Adriamycin/Cytoxan based chemotherapy started Oct, completed [...] type, invasive tumor 2.2 cm ER positive, ME positive, HER-2/PEREZ negative, two sentinel nodes negative. -S/p RIGHT mastectomy with sentinel node bx by [facility] -Adriamycin/Cytoxan based chemotherapy started Oct, completed [...] type, invasive tumor 2.2 cm ER positive, ME positive, HER-2/PEREZ negative, two sentinel nodes negative. -S/p RIGHT mastectomy with sentinel node bx by [facility] -Adriamycin/Cytoxan based chemotherapy started Oct, completed [...] type, invasive tumor 2.2 cm ER positive, ME positive, HER-2/PEREZ negative, two sentinel nodes negative. -S/p RIGHT mastectomy with sentinel node bx by [facility] -Adriamycin/Cytoxan based chemotherapy started Oct, completed [...] type, invasive tumor 2.2 cm ER positive, ME positive, HER-2/PEREZ negative, two sentinel nodes negative. -S/p RIGHT mastectomy with sentinel node bx by [facility] -Adriamycin/Cytoxan based chemotherapy started Oct, completed [...] type, invasive tumor 2.2 cm ER positive, ME positive, HER-2/PEREZ negative, two sentinel nodes negative. -S/p RIGHT mastectomy with sentinel node bx by [facility] -Adriamycin/Cytoxan based chemotherapy started Oct, completed [...] Overview (06/22/2025): Lab Results Component Value Date [id number] 79.4 05/15/2025 [id number] 58.3 06/16/2024 [id number] 106.4 01/04/2024 Assessment & Plan (04/26/2025 4:15 PM EDT): Lab Results Component Value Date [id number] 58.3 06/16/2024 [id number] 106.4 01/04/2024 [id number] 76.8 09/22/2023 Orders: Vitamin D, 25-Hydroxy, Total, Immunoassay; Future Assessment & Plan (06/29/2024 3:39 PM EDT): Lab Results Component Value Date [id number] 58.3 06/16/2024 [id number] 106.4 01/04/2024 [id number] 76.8 09/22/2023 Assessment & Plan (12/14/2023 12:09 PM EST): Lab Results Component Value Date [id number] 76.8 09/22/2023 -Labs ordered for further evaluation: Vitmain D, 25-hydroxy, Total, Immunoassay. 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 Per Dr. Krish Loomis's note from [facility], pt was due for repeat [...] CIN2-3. Per Dr. Krish Loomis's note from [facility], pt was due for repeat [...] CIN2-3. Per Dr. Krish Loomis's note from [facility], pt was due for repeat [...] Dr. Krish Loomis's note from [facility] RESEARCH AND EVALUATION ANALYST, pt was due for repeat colposcopy in [...] , Patient to reach out to [facility] team as needed, Patient to reach out to [facility] as needed, and will contact [facility] Intake number to connect with assisted OP services, and psychiatrist. Rule Out Diagnoses: [...] of breath) 06/29/2024 Overview (12/29/2024): -Followed by [facility] Pulmonology with Sury Benitez NP -02/2024 RAST [...] Plan (12/29/2024 11:03 AM EST): -Followed by [facility] Pulmonology with Sury Benitez NP -02/2024 RAST [...] if needed. -pt reports she saw her flow match sofa cutter and is continuing management with them. . Assessment & Plan (07/13/2024 2:15 PM EDT): -referred to pulmonology 06/29/24 -Pt reports she has appt to see flow match sofa cutter 08/01/24 Assessment & Plan (06/29/2024 4:49 PM [...] flare 05/11/2024 12/29/2024 Overview (07/13/2024): Seen by print traffic manager Dr. Bernstein 05/11/24 or evaluation of [...] Plan (07/13/2024 2:21 PM EDT): Seen by print traffic manager Dr. Bernstein 05/11/24 or evaluation of [...] EDT): Patient requesting a Physical for her MASKING MACHINE OPERATOR hours to be re-instated. On exam today, her vitals are stable and her exam seems unchanged from previous one. Work up in progress for her c/o bilateral foot pain Hospital discharge follow-up 06/18/2023 07/20/2023 Assessment & Plan (07/14/2023 10:23 AM EDT): Patient here for a HDF. She was admitted to [facility] from 06/05-06/08 . [...] scene within 10 minutes, transfer completed ST. [facility] ER called with expect Hypertension 05/26/2023 12/14/2023 Assessment & Plan (05/26/2023 12:12 PM EDT): Not controlled today Pt says she took her Lisinopril and chlorthalidone this morning Hypokalemia 12/09/2022 10/27/2024 Hyperaldosteronism 11/16/2022 3 Overview (11/16/2022): Seen by [facility] 04/03/2022. Initially seen 12/2021 for hyper[address]. Labs [facility] 10/2021 aldosterone 8, plasma renin 0.11, aldosterone/renin 72.7. She was likely on spironolactone and lisinopril at time of labs. Advise no spironolactone for 6 weeks and recheck renin aldosterone levels with renal panel and magnesium in electronic organ mechanic. Assessment & Plan (11/16/2022 10:55 AM EST): Seen by [facility] 04/03/2022. Initially seen 12/2021 for hyperaldoster[address]. Labs [facility] 10/2021 aldosterone 8, plasma renin 0.11, aldosterone/renin 72.7. She was likely on spironolactone and lisinopril at time of labs. Advise no spironolactone for 6 weeks and recheck renin aldosterone levels with renal panel and magnesium in electronic organ mechanic. Generalized pain 09/14/2014 06/08/2025 Anxiety 04/19/2014 01/28/2024 Polysubstance abuse 04/19/2014 04/04/20 25 Encounters Date Type Department Care Team Description 07/25/[address] [facility] [address] [place] [address] Shereen Latham MD Call Back Request 07/20/2025 1:15 PM EDT Office Visit [facility] [address] [place] [address] Junie Padron MD Pain in both hands (Primary Dx); Bilateral hand pain 07/20/2025 Results Follow-Up [address] [address] Junie Padron MD C-reactive Protein, Sed Rate by Modified Westergren, Uric acid, XR Hand 3+Views Bilateral 07/20/2025 Travel 07/02/[address] [address] Shereen Latham MD Alcohol abuse 06/28/2025 Orders Only [facility] External Provider, [facility] Bilateral malignant neoplasm of breast in female, unspecified estrogen receptor status, unspecified site of breast (CMS/HCC) (Primary Dx); Abnormal mammogram 06/23/[address] [address] Shereen Latham MD 06/22/2025 11:15 AM EDT Office Visit [address] [address] Shereen Latham MD Trigger finger, unspecified finger, [...] specified health status 06/22/2025 Travel 06/21/[address] [address] Shereen Latham MD chartprep 06/16/2025 10:15 AM EDT Office Visit [address] [address] Naomi De Jesus, ANP Right otitis media, unspecified otitis media type (Primary Dx); Heart failure with preserved ejection fraction, unspecified HF chronicity (CMS/HCC); Shortness of breath; Nasal congestion 06/16/[address] [facility] ADULT DENTAL [address] [place] [phone] Isa De La Rosa DDS active requested appt 06/16/2025 Patient Outreach [facility] [address] [place] [address] Shereen Latham MD Care Coordination (Communication to PT assigned CP Coordinator) 06/16/2025 Travel 06/15/[address] [facility] [address] [place] [phone] Shereen Latham MD ER Follow-up 06/15/2025 Patient Outreach [facility] [address] [place] [address] Shereen Latham MD Care Coordination ([facility] ED Follow Up) 06/15/2025 Patient Outreach [facility] [address] [place] [address] Shereen Latham MD Care Coordination (CP Care Coordination Chart Review) 06/15/[address] [facility] [address] [place] [phone] Shereen Latham MD 06/15/[address] [facility] [address] [place] [address] Shereen Latham MD 06/14/2025 2:20 PM EDT Office Visit [facility] [address] [place] [address] Junie Damon MD Shortness of breath; Precordial pain 06/14/2025 Travel 06/14/[address] [facility] [address] [place] [address] Shereen Latham MD Sebaceous cyst of labia (Primary Dx) 06/09/[address] [facility] [address] [place] [phone] Shereen Latham MD Referral 06/09/2025 Refill [facility] [address] [place] [address] Shereen Latham MD Pain 06/07/2025 6:00 PM EDT Office Visit [facility] [address] [place] [address] Tari Chance NP Cough in adult patient (Primary Dx); Viral illness; Elevated blood pressure reading in office with diagnosis of hypertension 06/07/2025 Travel 06/07/[address] [address] Shereen Latham MD Nurse Triage 06/02/[address] [address] Shereen Latham MD Referral 06/01/2025 Orders Only GENERIC EXTERNAL DATA DEPARTMENT Provider, Generic External Data History of right breast cancer (Primary Dx); Abnormal mammogram 05/24/2025 11:30 AM EDT Office Visit [address] [address] Shereen Latham MD Class 1 obesity due to excess calories with serious comorbidity and body mass index (BMI) of 31.0 to 31.9 in adult (Primary Dx); Dietary counseling; Exercise counseling; Ductal hyperplasia of breast; Callus of foot; Pain in both feet 05/24/2025 Travel 05/23/[address] [address] Shereen Latham MD CHART PREP 05/18/2025 Orders Only GENERIC EXTERNAL DATA DEPARTMENT Provider, Generic External Data History of right breast cancer (Primary Dx); Abnormal mammogram 05/15/2025 Travel 05/03/[address] [facility] [address] [place] [address] Shereen Latham MD Benign essential hypertension 05/02/[address] [facility] [address] [place] [address] Shereen Latham MD Pain; Benign essential hypertension 04/26/2025 9:30 AM EDT Office Visit [address] [address] Shereen Latham MD Abnormal mammogram (Primary Dx); [...] unspecified iron deficiency anemia type 04/26/[address] [address] Shereen Latham MD Medication Question 04/26/2025 Travel 04/25/[address] [address] Shereen Latham MD CHART PREP 04/25/[address] [address] Shereen Latham MD Appointment Request from Last 3 Months Immunizations Immunization Administration [...] [facility] [address] [place] [address] Isa De La Rosa DDS [address] [place] [address] 09/13/2025 3:15 PM EST Office Visit [facility] [address] [place] [address] Shereen Latham MD [address] [place] [address] Health Maintenance Due Date Last Done Comments CT Colonography 1975 FIT 1975 Sigmoidoscopy 1975 DTaP/Tdap/Td Vaccines (4 - Tdap) 08/11/2020 08/10/2020, 07/16/2007, 07/05/1981, Additional history exists Zoster Vaccines (1 of 2) 2023 FOBT 08/27/2024 08/27/2023 Diagnostic Breast Imaging 07/02/20252024, 05/18/2025, 04/20/2025, Additional history exists Mammogram 07/02/2025 06/01/2025, 05/02, 04/20/2025, Additional history exists COVID-19 Vaccine (2 - season) 2025 02/09/2021 Influenza Vaccine (#1) 2025 [...] 08/27/2023 Dental X-Ray: Full Mouth 03/30/2028 03/29/2025, 01/2019 Lipid Panel 12/29/2029 12/29/2024, 06/02, 09/22/2023, Additional [...] 2:25 PM EDT Pain in both hands URIC ACID Routine 07/20/2025 1:55 PM EDT Pain in both hands SED RATE BY MODIFIED WESTERGREN Routine 07/20/2025 1:55 PM EDT Pain in both hands C-REACTIVE PROTEIN Routine 07/20/2025 1: 55 PM EDT Pain in both hands GROSS AND MICROSCOPIC LEVEL 5 Routine 06/28/2025 [...] MAGNESIUM Routine 05/15/2025 1:46 PM EDT Hypomagnesemia PROPHYLAXIS - ADULT Routine 03/29/2025 2 :00 [...] Relevant to Health Maintenance Results * XR Hand 3+Views Bilateral (07/20/2025 2:25 PM EDT) Anatomical Region Laterality Modality Upper Extremities, Hand Bilateral Radiogra phic Imaging 07/20/2025 2:25 PM EDT Narrative 07/20/2025 2:41 PM EDT [place] [address] XRay Report Signed Patient: Azra Cast MR#: [id number] : 1975 Acct:[id number] Age/Sex: 49 / F ADM Date: 07/20/25 Loc: HO.[facility] Attending Dr: Shereen Latham MD Ordering Physician: Junie Padron MD Date of Service: 07/20/25 Procedure(s): XR Hand Bilat min 3v Accession Number(s): [id number] cc: Shereen Latham MD; Junie Padron MD [...] 07/20/25 1438 DD/ 1425 TD/TT: 07/20/25 142 Toll Line Mechanic: Procedure Note Donotuseinterpreter, Image - 07/20/[address] [address] XRay Report Signed Patient: Maged Cast#: [id number] : 1975Acct:[id number] Age/Sex: 49 / FADM Date: 07/20/25 Loc: [facility] Attending Dr: Shereen Latham MD Ordering Physician: Junie Padron MD Date of Service: 07/20/25 Procedure(s): XR Hand Bilat min 3v Accession Number(s): [id number] cc: Shereen Latham MD; Junie Padron MD [...] in OV> 07/20/25 1438 DD/ 1425 TD/TT: 07/20/251426 Toll Line Mechanic: us Junie Raygoza MD IMG XR PROCEDURES Final Result * (ABNORMAL) Sed Rate by Modified Westergren (07/20/2025 1:55 PM EDT) Erythrocyte Sedimentation Rate 34(H) 0 - 20 MM/HR [facility] Comment:Patients with polycy themia and many hemoglobin abnormalitiesmay have depressed sed rates whereas patients with anemiamay have elevated sed rates. Blood Venous blood specimen / Unknown 07/20/2025 1:55 PM EDT 07/20/2025 4:03 PM EDT Junie Raygoza MD LAB BLOOD ORDERAB LES Final Result Performing Organization Address [facility] Co de Phone Number [facility] [address] [place] [phone] * (ABNORMAL) C-reactive Protein (07/20/2025 1:55 PM EDT) Pathologist [facility] C Reactive Protein 2.46(H) < or = 0.50 mg/dL [facility] Blood Venous blood specimen / Unknown 07/20/2025 1:55 PM EDT 07/20/2025 4:46 PM EDT Junie Raygoza MD LAB BLOOD ORDERAB LES Final Result Performing Organization Address City/[facility] Co de Phone Number [facility] [address] [place] [phone] * Uric acid (07/20/2025 1:55 PM EDT) Uric Acid 5.7 2.4 - 5.7 mg/dL [facility] Blood Venous blood specimen / Unknown 07/20/2025 1:55 PM EDT 07/20/2025 4:46 PM EDT Junie Raygoza MD LAB BLOOD ORDERAB LES Final Result Performing Organization Address City/[facility]/ZIP Co de Phone Number [facility] [address] [place] [phone] * Gross and Microscopic Level 5 (06/28/2025 10:55 AM EDT) 06/28/2025 10:5 5 AM EDT 06/28/2025 11:08 AM EDT [place] [facility] - 07/05/2025 2:23 PM EDT ----- ------- Name: Azra Cast Age/Sex: 49/F : 1975 Unit#: [id number] Attend Dr: Aaron Pringle MD Re06/28/25 Status: [facility] Location: [facility] Disch: ----- ------- SPEC : [id number] RECD: 06/28/25-8 STATUS: CRAIG ANDERSEN NUM: [id number] MAYA: 06/28/25-[address] [facility] [address]: Aaron Pringle MD ENTERED: 06/28/25-1110 SP TYPE: Surgical OTHR DR: Shereen Latham MD ORDERED: Gross Micro L5, ER, ME, IOC, IHC, Add. immunos, IHC ER/ME/Her2N/4, Ki-67, p63, SMM, [id number] Diagnosis Breast, left, lumpectomy: - Invasive ductal [...] from posterior Lymph nodes Number examined: 0 [place] nodes: 0 Axillary nodes: 0 CONTINUED ON NEXT PAGE ----- ------- Name: Azra Cast Age/Sex: 49/F : 1975 Unit#: [id number] Attend Dr: Aaron Pringle MD Re06/28/25 Status: [facility] Location: [facility] Disch: ----- ------- SPEC : [id number] RECD: 06/28/25 STATUS: CRAIG ANDERSEN NUM: [id number] MAYA: 06/28/25-1055 [facility] [address]: Aaron Pringle MD ENTERED: 06/28/25-1111 SP TYPE: Surgical OTHR DR: Shereen Latham MD ORDERED: Gross Micro L5, ER, ME, IOC, IHC, Add. immunos, IHC ER/ME/Her2N/4, Ki-67, p63, SMM, [id number] Diagnosis (Continued) Number involved: N/A With macrometastases: N/A With micrometastases: N/A With isolated tumor cells: N/A Extranodal extension: N/A Size of largest met. deposit: N/A Treatment effect Breast: Not identified Lymph nodes: Not identified TNM: pT1b NX Ancillary studies: ER positive, ME positive, HER2 negative (0), low proliferation Clinical [...] Azra Cast Age/Sex: 49/F : 1975 Unit#: [id number] Attend Dr: Aaron Pringle MD Re06/28/25 Status: [facility] Location: [facility] Disch: ----- ------- SPEC : [id number] RECD: 06/28/25-8 STATUS: CRAIG ANDERSEN NUM: [id number] MAYA: 06/28/25-[address] [facility] [address]: Aaron Pringle MD ENTERED: 06/28/25-1110 SP TYPE: Surgical OTHR DR: Shereen Latham MD ORDERED: Gross Micro L5, ER, ME, IOC, IHC, Add. immunos, IHC ER/ME/Her2N/4, Ki-67, p63, SMM, [id number] Gross Description (Continued) fatty parenchyma is otherwise unremarkable without additional discrete abnormality. Concrete Carpenter sections to include entire area of ill-defined [...] Envision+ Dual Link System-HRP. Progesterone receptor: Clone [id number]; [employer] Mach 4 detection system. Her-2/perez immunohistochemistry performed in accordance with ASCO/CAP recommendations (2007) and update (2013). Hercep Test Detection system: Polymer type Scoring criteria: For ER/ME and Her-2/perez: All internal (if present) and external controls react appropriately. CONTINUED ON NEXT PAGE ----- ------- Name: Azra Cast Age/Sex: 49/F : 1975 Unit#: [id number] Attend Dr: Aaron Pringle MD Re06/28/25 Status: [facility] Location: [facility] Disch: ----- ------- SPEC : [id number] RECD: 06/28/25-110 STATUS: CRAIG ANDERSEN NUM: [id number] MAYA: 06/28/25-5 [facility] [address]: Aaron Pringle MD ENTERED: 06/28/25 SP TYPE: Surgical OTHR DR: Shereen Latham MD ORDERED: Gross Micro L5, ER, ME, IOC, IHC, Add. immunos, IHC ER/ME/Her2N/4, Ki-67, p63, SMM, [id number] Gross Description (Continued) ER and ME immunostains are scored as Positive (> 10% [...] Arch of Pathol Lab Med, 142 2018: 8944-1171. Marce EDMONDS, Margot VASQUEZ, et al. Estrogen and Progesterone Receptor Testing in Breast Cancer: ASCO/CAP Guideline Update. Arch of Pathol Lab Med, 144 2020: 545-563. Thanh N, Cristel P, et al. Adjuvant abemaciclib combined with endocrine therapy for high- risk early breast cancer: updated efficacy and Ki-67 analysis from the monarchE study. Jennie Oncol. 2020;32(12):9098-1639. This case was reviewed intradepartmentally; results were communicated to Dr. Pringle on 07/05/2025. Special studies ordered and performed: Immunostains for ER, ME, HER2, Ki 67, p63 and smooth muscle myosin IHC S/NG Disclaimer NOTE: Unless otherwise stated, all tissue is formalin-fixed and paraffin-embedded. Some or all of the immunohistochemical tests reported herein may have been developed and their performance characteristics determined by [facility]. They have not been cleared or [...] Azra Cast Age/Sex: 49/F : 1975 Unit#: [id number] Attend Dr: Aaron Pringle MD Re06/28/25 Status: [facility] Location: [facility] Disch: ----- ------- SPEC : [id number] RECD: 06/28/25-1108 STATUS: CRAIG ANDERSEN NUM: [id number] MAYA: 06/28/25-[address]: Aaron Pringle MD ENTERED: 06/28/25-1111 SP TYPE: Surgical OTHR DR: Shereen Latham MD ORDERED: Gross Micro L5, ER, ME, IOC, IHC, Add. immunos, IHC ER/ME/Her2N/4, Ki-67, p63, SMM, [id number] Copies To: Shereen Latham MD [address] [address] [address] [facility] [address] [place] [address] ----- ------- Signed (signature on file) Beck Whatley MD 07/05/25 1423 ----- ------- END OF REPORT us Generic External Data Provider LAB BLOOD ORDERAB LES Final Result [facility] [address] [place] [phone] * BI MM SURGICAL SPECIMEN (06/28/2025 10:13 AM EDT) Anatomical Region Laterality Modality Breast Bilateral Mammography 06/28/2025 10:1 3 AM EDT Narrative 06/28/2025 11:09 AM EDT [address] [id number] Mammography Report Signed Patient: Azra Cast MR#: [id number] : 1975 Acct:[id number] Age/Sex: 49 / F ADM Date: 06/28/25 Loc: [facility] Attending Dr: Aaron Pringle MD Ordering Physician: Aaron Pringle MD Results: Date of Service: 06/28/25 Follow Up: Procedure(s): MM surgical specimen Accession Number(s): [id number] cc: Shereen Latham MD; Aaron Pringle MD Single left breast specimen radiograph demonstrates a tag with the barbell clip and a second tag with a top hat clip. Electronically signed by: Cara Rodriges DO 06/28/2025 11:07 AM EDT RP Dictated By: Cara Rodriges DO Signed By: <Electronically signed by Cara Rodriges DO in OV> 06/28/25 1107 DD/ 1013 TD/TT: 06/28/25 1104 Toll Line Mechanic: Procedure Note Donotuseinterpreter, Image - 06/28/2025 [place] [id number] Mammography Report Signed Patient: Nicolas CastR#: [id number] : 1975Acct:[id number] Age/Sex: 49 / FADM Date: 06/28/25 Loc: [facility] Attending Dr: Aaron Pringle MD Ordering Physician: Aaron Pringleesults: Date of Service: 06/28/25Follow Up: Procedure(s): MM surgical specimen Accession Number(s): [id number] cc: Shereen Latham MD; Aaron Pringle MD Single left breast specimen radiograph demonstrates a tag with the barbell clip and a second tag with a top hat clip. Electronically signed by: Cara Rodriges DO 06/28/2025 11:07 AM EDT RP Dictated By: Cara Rodriges DO Signed By: <Electronically signed by Cara Rodriges DO in OV> 06/28/25 1107 DD/ 1013 TD/TT: 06/28/25 1104 Toll Line Mechanic: [facility] External Provider IMG BI PROCEDURES Edited Result - Final * High Sensitivity Troponin I (06/14/2025 5:50 PM EDT) TROPONIN I HIGH SENSITIVITY 12.4 <3.5 - 17.0 ng/L [facility] Comment:The [place] high sens itivity Troponin-I results should beused in conjunction with other diagnostic information suchas ECG, clinical observations and information, and patientsymptoms to aid in the diagnosis of VT. 06/14/2025 5:50 PM EDT 06/14/2025 5:54 PM EDT Generic External Data Provider LAB BLOOD ORDERAB LES Final Result Performing Organization Address City/State/[facility] Co de Phone Number [facility] [address] [place] [phone] * XR Chest 1 View (06/14/2025 12:37 PM EDT) Anatomical Region Laterality Modality Chest Radiographic Celina ging 06/14/2025 12:3 7 PM EDT Narrative 06/14/2025 1:54 PM EDT [address] [address] XRay Report Signed Patient: Azra Cast MR#: [id number] : 1975 Acct:[id number] Age/Sex: 49 / F ADM Date: 06/14/25 Loc: HO.ED Attending Dr: Ordering Physician: Corrina Badillo PA-C Date of Service: 06/14/25 Procedure(s): XR chest 1V Accession Number(s): [id number] cc: Shereen Latham MD; Corrina Badillo PA-C [...] 06/14/25 1351 DD/ 1237 TD/TT: 06/14/25 1348 Toll Line Mechanic: Procedure Note Donotuseinterpreter, Image - 06/14/[address] [address] XRay Report Signed Patient: Maged Cast#: [id number] : 1975Acct:[id number] Age/Sex: 49 / FADM Date: 06/14/25 Loc: .ED Attending Dr: Ordering Physician: Corrina Badillo PA-C Date of Service: 06/14/25 Procedure(s): XR chest 1V Accession Number(s): [id number] cc: Shereen Latham MD; Corrina Badillo PA-C [...] 06/14/25 1351 DD/ 1237 TD/TT: 06/14/25 1348 Toll Line Mechanic: [facility] External Provider IMG XR PROCEDURES Final Result [...] is included. Influenza A Negative Negative, Indeterminate [facility] QC Media Lot # [id number] [facility] Lot# Expiration Date [facility] Swab 06/14/2025 12:0 0 PM EDT Junie Upton MD POINT OF CARE TEST EN TER/EDIT ORDERABLES Final Result Performing Organization Address [facility]/ZIP Co de Phone Number [facility] [address] [place] [phone] * POCT Rapid Influenza B ORELLANA ID NOW (06/14/2025 11:57 AM EDT) Only the most recent of2 resultswithin the time period is included. Influenza B Negative Negative, Indeterminate [facility] QC Media Lot # [id number] [facility] Lot# Expiration Date [facility] Swab 06/14/2025 11:5 7 AM EDT Junie Upton MD POINT OF CARE TEST EN TER/EDIT ORDERABLES Final Result Performing Organization Address City/[facility]/ZIP Co de Phone Number [facility] [address] [place] [phone] * POCT Rapid Covid-19 BinaxNOW (06/14/2025 [...] AM EDT Narrative 06/14/2025 11:42 AM EDT [address] [place] [address] Mammography Report Signed Patient: Azra Cast MR#: [id number] : 1975 Acct:[id number] Age/Sex: 49 / F ADM Date: 06/14/25 Loc: HO.MAMMO Attending Dr: Aaron Pringle MD Ordering Physician: Aaron Pringle MD Results: Date of Service: 06/14/25 Follow Up: Procedure(s): MM RF Tag device add Accession Number(s): [id number] cc: Shereen Latham MD; Aaron Pringle MD [...] -Length: 7 cm. 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 TARGET: Top hat clip. ANESTHESIA: carbonated lidocaine . LOCALIZATION SYSTEM: -TearScience[employer]ic LOCallizer Wire-Free Guidance System with 12g needle applicator. -Length: 7 cm. -RADIOFREQUENCY TAG: ID # [id number] RF Tag ID confirmed with LOCalizer Guidance [...] 06/14/25 1139 DD/ 1000 TD/TT: 06/14/25 1100 Toll Line Mechanic: Procedure Note Donotuseinterpreter, Image - 06/14/2025 [facility] [address] [place] [address] Mammography Report Signed Patient: Maged Cast#: [id number] : 1975Acct:[id number] Age/Sex: 49 / FADM Date: 06/14/25 Loc: HO.MAMMO Attending Dr: Aaron Pringle MD Ordering Physician: Aaron Pringleesults: Date of Service: 06/14/25Follow Up: Procedure(s): MM RF Tag device add Accession Number(s): [id number] cc: Shereen Latham MD; Aaron Pringle MD [...] ANESTHESIA: carbonated lidocaine 1%: . LOCALIZATION SYSTEM: -[employer] LOCallizer Wire-Free Guidance System with 12g needle applicator. -Length: 7 cm. 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 TARGET: Top hat clip. ANESTHESIA: carbonated lidocaine . LOCALIZATION SYSTEM: -[employer] LOCallizer Wire-Free Guidance System with 12g needle applicator. -Length: 7 cm. -RADIOFREQUENCY TAG: ID # [id number] RF Tag ID confirmed with LOCalizer Guidance [...] 06/14/25 1139 DD/ 1000 TD/TT: 06/14/25 1100 Toll Line Mechanic: [facility] External Provider IMG BI PROCEDURES Final Result * MM RF Tag Device Left (06/14/2025 10:00 AM EDT) Anatomical Region Laterality Modality Breast Left Mammography 06/14/2025 10:0 0 AM EDT Narrative 06/14/2025 11:42 AM EDT [facility] [address] [place], [place] [address] Mammography Report Signed Patient: Azra Cast MR#: [id number] : 1975 Acct:[id number] Age/Sex: 49 / F ADM Date: 06/14/25 Loc: HO.MAMMO Attending Dr: Aaron Pringle MD Ordering Physician: Aaron Pringle MD Results: Date of Service: 06/14/25 Follow Up: Procedure(s): MM RF Tag device LT Accession Number(s): [id number] cc: Shereen Latham MD; Aaron Pringle MD [...] ANESTHESIA: carbonated lidocaine 1%: . LOCALIZATION SYSTEM: -[employer] LOCallizer Wire-Free Guidance System with 12g needle applicator. -Length: 7 cm. 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 TARGET: Top hat clip. ANESTHESIA: carbonated lidocaine . LOCALIZATION SYSTEM: -[employer]ic LOCallizer Wire-Free Guidance System with 12g needle applicator. -Length: 7 cm. -RADIOFREQUENCY TAG: ID # [id number] RF Tag ID confirmed with LOCalizer Guidance [...] DO 06/14/2025 11:39 AM EDT Dictated By: Tyminski,Cara DO Signed By: <Electronically signed by Cara Rodriges DO in OV> 06/14/25 1139 DD/ 1000 TD/TT: 06/14/25 1100 Toll Line Mechanic: Procedure Note Briannamaloubestter, Image - 06/14/2025 [facility] [address] [place] [address] Mammography Report Signed Patient: Maged Cast#: [id number] : 1975Acct:[id number] Age/Sex: 49 / FADM Date: 06/14/25 Loc: HO.MAMMO Attending Dr: Aaron Pringle MD Ordering Physician: Aaron Pringleesults: Date of Service: 06/14/25Follow Up: Procedure(s): MM RF Tag device LT Accession Number(s): [id number] cc: Shereen Latham MD; Aaron Pringle MD [...] ANESTHESIA: carbonated lidocaine 1%: . LOCALIZATION SYSTEM: -GraphSQL LOCallizer Wire-Free Guidance System with 12g needle applicator. -Length: 7 cm. 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 TARGET: Top hat clip. ANESTHESIA: carbonated lidocaine . LOCALIZATION SYSTEM: -TearSciencegic LOCallizer Wire-Free Guidance System with 12g needle applicator. -Length: 7 cm. -RADIOFREQUENCY TAG: ID # [id number] RF Tag ID confirmed with LOCalizer Guidance [...] 06/14/25 1139 DD/ 1000 TD/TT: 06/14/25 1100 Toll Line Mechanic: [facility] External Provider IMG BI PROCEDURES Final Result * BI Mammogram Diagnostic Tomosynthesis Left (06/01/2025 11:25 AM EDT) Only the most recent of2 resultswithin the time period is included. Anatomical Region Laterality Modality Breast Left Mammography 06/01/2025 11:2 5 AM EDT Narrative 06/01/2025 1:24 PM EDT [address] [address] [id number] Mammography Report Signed with Addpaco Patient: Azra Cast MR#: [id number] : 1975 Acct:[id number] Age/Sex: 49 / F ADM Date: 06/01/25 Loc: .MRI Attending Dr: Aaron Pringle MD Ordering Physician: Aaron Pringle MD Results: 1Nega tive Date of Service: 06/01/25 Follow Up: 1 Year From Orig ina Mammogram Procedure(s): MM tomosynthesis diagnostic LT Accession Number(s): [id number] cc: Shereen Latham MD; Aaron Pringle MD [...] and with use of Gadavist gadolinium contrast. [employer] introducer localization system is used with grid. LESION: Retroareolar region middle depth. LOCAL ANESTHESIA: 6 mL 1% lidocaine; 10 mL 1% lidocaine with epinephrine. NEEDLE: [employer] 9-gauge vacuum assisted core biopsy device. APPROACH: [...] 06/01/25 1321 DD/ 24 TD/TT: 06/01/25 115 Toll Line Mechanic: Procedure Note Seleneter, Image - 06/07/[address] [address] [id number] Mammography Report Signed with Addenda Patient: Maged Cast#: [id number] : 1975Acct:[id number] Age/Sex: 49 / FADM Date: 06/01/25 Loc: HO.MRI Attending Dr: Aaron Pringle MD Ordering Physician: Aaron Pringleesults: 1Nega tive Date of Service: 06/01/25Follow Up: 1 Year From Orig inal Mammogram Procedure(s): MM tomosynthesis diagnostic LT Accession Number(s): [id number] cc: Shereen Latham MD; Aaron Pringle MD [...] and with use of Gadavist gadolinium contrast. AteActual Experience introducer localization system is used with grid. LESION: Retroareolar region middle depth. LOCAL ANESTHESIA: 6 mL 1% lidocaine; 10 mL 1% lidocaine with epinephrine. NEEDLE: [employer] 9-gauge vacuum assisted core biopsy device. APPROACH: [...] 06/01/25 1321 DD/ 1125 TD/TT: 06/01/25 1150 Toll Line Mechanic: [facility] External Provider IMG BI PROCEDURES Edited Result - Final * Hematoxylin and Eosin Stain (06/01/2025 10:53 AM EDT) Only the most recent of2 resultswithin the time period is included. 06/01/2025 10:5 3 AM EDT 06/01/2025 11:23 AM EDT [facility] - 06/02/2025 3:10 PM EDT ----- ------- Name: Azra Cast Age/Sex: 49/F : 1975 Unit#: [id number] Attend Dr: Aaron Pringle MD Re06/01/25 Status: DEP REF Location: .MRI Disch: ----- ------- SPEC : [id number] RECD: 06/01/25 STATUS: CRAIG ANDERSEN NUM: [id number] MAYA: 06/01/[address] [facility] [address]: Aaron Pringle MD ENTERED: 06/01/25 [...] developed and their performance characteristics determined by [facility]. They have not been cleared or approved by the U.S. Food and Drug Administration (FDA). However, the FDA has determined that such clearance or approval is not necessary. This laboratory is certified under the Clinical Laboratory Improvement Amendments of 1988 (CLIA) as qualified to perform high complexity clinical laboratory testing. Copies To: Shereen Latham MD [address] [address] CONTINUED ON NEXT PAGE ----- ------- Name: SegunAzra Age/Sex: 49/F : 1975 Unit#: [id number] Attend Dr: Aaron Pringle MD Re06/01/25 Status: DEP REF Location: .MRI Disch: ----- ------- SPEC : [id number] RECD: 06/01/25 STATUS: KVNGMelquiades RERitu NUM: [id number] MAYA: 06/01/[address]: Aaron Pringle MD ENTERED: 06/01/25 SP TYPE: Surgical OTHR DR: Shereen Latham MD ORDERED: HE Stain/2, Gross Micro L4 COMMENTS: As per the specimen requisition slip the specimen is collected at 1053 and placed in formalin at 1100. Copies To: (Continued) Aaron Pringle MD [facility] General Surgeons [address] [place] [phone] ----- ------- Signed (signature on file) Beck Whatley MD 06/02/25 1510 ----- ------- END OF REPORT us Generic External Data Provider LAB BLOOD ORDERAB LES Final Result [facility] [address] [place] [address] [phone] * BI MR Guided Breast Biopsy Left (06/01/2025 9:04 AM EDT) Only the most recent of2 resultswithin the time period is included. Anatomical Region Laterality Modality Breast Left Magnetic Resonan ce 06/01/2025 9:04 AM EDT Narrative 06/01/2025 1:24 PM EDT [address] [address] Magnetic Resonance Report Signed with Kaylie Patient: Azra Cast MR#: [id number] : 1975 Acct:[id number] Age/Sex: 49 / F ADM Date: 06/01/25 Loc: HO.MRI Attending Dr: Aaron Pringle MD Ordering Physician: Aaron Pringle MD Date of Service: 06/01/25 Procedure(s): MR guided breast biopsy LT Accession Number(s): [id number] cc: Shereen Latham MD; Aaron Pringle MD [...] and with use of Gadavist gadolinium contrast. [employer] introducer localization system is used with grid. LESION: Retroareolar region middle depth. LOCAL ANESTHESIA: 6 mL 1% lidocaine; 10 mL 1% lidocaine with epinephrine. NEEDLE: [employer] 9-gauge vacuum assisted core biopsy device. APPROACH: [...] 06/01/25 1321 DD/ 0904 TD/TT: 06/01/25 1100 Toll Line Mechanic: Procedure Note Donotuseinterpreter, Image - 06/07/2025 [place] [address] Magnetic Resonance Report Signed with Addenda Patient: Maged Cast#: [id number] : 1975Acct:[id number] Age/Sex: 49 / FADM Date: 06/01/25 Loc: HO.MRI Attending Dr: Aaron Pringle MD Ordering Physician: Aaron Pringel MD Date of Service: 06/01/25 Procedure(s): MR guided breast biopsy LT Accession Number(s): [id number] cc: Shereen Latham MD; Aaron Pringle MD [...] and with use of Gadavist gadolinium contrast. [employer] introducer localization system is used with grid. LESION: Retroareolar region middle depth. LOCAL ANESTHESIA: 6 mL 1% lidocaine; 10 mL 1% lidocaine with epinephrine. NEEDLE: [employer] 9-gauge vacuum assisted core biopsy device. APPROACH: [...] OV> 06/01/25 1321 DD/ 3 TD/TT: 06/01/251099 Toll Line Mechanic: [facility] External Provider IMG MRI PROCEDURES Edited Result - Final * Vitamin D, 25-Hydroxy, Total, Immunoassay (05/15/2025 1:46 PM EDT) Vitamin D 25-OH Total 79.4 >30 ng/mL [facility] Comment: Health Based Reference Values*< 20 ng/mL Gfzvmowjv52-71 ng/mL Insufficient> 30 ng/mL Sufficient*Candi INGRAM. N [...] BLOOD ORDERABLES Final Result Performing Organization Address City/[facility]/ZIP Co de Phone Number [facility] [address] [place] [address] [phone] * Magnesium (05/15/2025 1:46 PM EDT) Magnesium 1.6 1.6 - 2.6 mg/dL [facility] Blood Venous blood specimen / Unknown 05/15/2025 1:46 PM EDT 05/15/2025 4:50 PM EDT Shereen Latham MD LAB BLOOD ORDERABLES Final Result Performing Organization Address City/[facility]/ZIP Co de Phone Number [facility] [address] [place] [address] [phone] * (ABNORMAL) Lipid Panel, Standard (12/29/2024 10:53 AM EST) Triglycerides 192(H) <150 mg/dL [facility] Comment:Desirable Triglyceri de: less than 150 mg/dLBorderline High Triglyceride 150-199 mg/dLHigh Triglyceride: 200-499 mg/dLVery High Triglyceride: greater than or equal to 5OO mg/dL Cholesterol 197 <200 mg/dL [facility] Comment:Desirable Cholestero l: less than 200 mg/dLBorderline High Cholesterol: 200-239 mg/dLHigh Cholesterol: greater than 239 mg/dL LDL Cholesterol Calculated 111(H) <100 mg/dL [facility] Comment:Desirable LDL: less than 100 mg/dLNear Optimal/Above Optimal LDL: 110- 129 mg/dLBorderline High LDL: 130-159 mg/dLHigh LDL: 160-189 mg/dLVery High LDL: greater than or equal to 190 mg/dL HDL Cholesterol 48 >40 mg/dL [facility] Comment:Desirable HDL: great er than 40 mg/dL Note: This HDL assay may give artificially low results in patients with liver disease. Blood Venous blood specimen / Unknown 12/29/2024 10:53 AM EST 12/29/2024 1:06 PM EST us Shereen Latham MD LAB BLOOD ORDERABLES Final Result [facility] [address] [place] [phone] * (ABNORMAL) Hm Colonoscopy (07/11/2024) Colonoscopy Abnormal( A) Normal Comment:Herberth Stokes MD tubular adenoma x 3 us Herberth Stokes MD HEALTH MAINTENANCE Final Result * Hepatitis Panel, General (06/16/2024 8:22 AM EDT) Hepatitis A IgM Nonreactive Nonreactive [facility] Comment:IgM antibodies to VIRAMONTES V not detected; does not exclude earlyacute or recovered HAV infection. ~Hepatitis B Surface Antibody REACTIVE Nonreactive [facility] Comment:REACTIVE: > 11.99 mI U/mL Hepatitis B Core Antibody Nonreactive Nonreactive [facility] Hepatitis C Antibody Nonreactive Nonreactive [facility] Comment:Antibodies to HCV no t detected; does not exclude early acuteHCV infection. Hepatitis B Surface Ag Negative Negative [facility] Blood Venous blood specimen / Unknown 06/16/2024 8:22 AM EDT 06/16/2024 11:18 AM EDT us Shereen Latham MD LAB BLOOD ORDERABLES Final Result Performing Organization Address [facility]/ZIP Co de Phone Number [facility] [address] [place] [phone] * HIV-1/2 Antigen and Antibodies, Fourth Generation, with Reflexes (02/24/2024 8:47 AM EDT) HIV AB/AG Nonreactive Nonreactive [facility] Comment:HIV-1 p24 Ag and/or HIV-1/HIV-2 Ab not detected.A test result that is nonreactive does not exclude thepossibility of exposure to or infection with HIV-1 and/orHIV-2. Nonreactive results in this assay for individualswith prior exposure to HIV-1 and/or HIV-2 may be due toantigen and antibody levels that are below the limit ofdetection of this assay.The [employer] HIV Ag/Ab Combo assay result andsupplemental assay results should be interpreted inconjunction with the patient's clinical presentation,history and other laboratory results. If the results areinconsistent with clinical evidence, additional testing issuggested to confirm the result. Blood Venous blood specimen / Unknown 02/24/2024 8:47 AM EDT 02/24/2024 11:22 AM EDT us Naomi ORDAZ LAB BLOOD ORDERABLES Final Resul t Performing Organization Address City/[facility]/ZIP Co de Phone Number [facility] [address] [place] [phone] * (ABNORMAL) Cologuard?? colon cancer screening (08/27/2023 11:24 AM EDT) Cologuard Result Positive( A) Negative 09/05/2023 10:16 PM EDT [facility] (CLIA #:[id number]) Comment: POSITIVE TEST RESULT. A positive Cologuard [...] (Felix Mccoy al, N Engl J Med 2014;370(14):8602-4786.) Cologuard may produce a false negative or false positive result (no colorectal cancer or precancerous polyp present at colonoscopy follow up). A negative Cologuard test result does not guarantee the absence of CRC or advanced adenoma (pre-cancer). The current Cologuard screening interval is every 3 years. ([place] Cancer Society and U.S. Multi-Society Task Force). Cologuard performance data in a 10,000 patient pivotal study using colonoscopy as the reference method can be accessed at the following location: www.exactlabs.com/results. Additional description of the Cologuard test process, warnings and precautions can be found at www.colVia6rd.com. Stool specimen (specimen) 08/27/2023 11:24 AM EDT 08/29/2023 6:48 AM EDT Shereen Latham MD LAB MOLECULAR DIAGNOSTICS ORDERABLES Final Result [facility] (CLIA #:[id number]) [address] [place] [address], * HPV mRNA E6/E7 (08/12/2018 10:57 AM EDT) Pathologist [facility] HPV mRNA E6/E7 Not Detected NOT DETECTED [facility] [email or web address] Comment: This test was performed using the APTIMA(R) HPV Assay ([employer] This assay detects E6/E7 viral messenger RNA (mRNA) from 14 high-risk HPV types (16,18,31,33,35,39,45,51, 52,56,58,59,66,68). For additional information please refer to: http://education.PlaceVine.Threadflip/faq/HUV539d5 (This link is being provided for informational/ educational purposes only.) The analytical performance characteristics of this assay have been determined by [employer] [place], [place]. The modifications have not been cleared or approved by the FDA. This assay has been validated pursuant to the CLIA regulations and is used for clinical purposes. Test Performed by [facility], [employer] [facility] [place], [address] [place] [address] Dwaine Morelos M.D., Ph.D., Director of Laboratories , CLIA [id number] Please note: Effective 07/14/2016, HPV testing will be performed using Graph[employer]'s APTIMA test which targets mRNA. Detecting mRNA instead of DNA, as in older methods, offers significant improvements in specificity. 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 Advance Directives and Living Will 07/05/2024 11:59 AM Health Care Proxy Care Teams Residential Interior Designer Relationship Specialty Start Date End Date Shereen Latham MD [address] [place] [phone] PCP - General Family Medicine 11/02/18 Sury Benitez [address] [facility] [address] [place] [address] Pulmonary Disease 09/27/24 Nirali Madrid OD [address] [place] [address] Optometry 10/27/24 Li Grande MD [address] [place] [address] Hematology and Oncology 10/27/24 Anselmo Gates MD [address] [place] [address] Orthopaedic Surgery 10/27/24 Margaret Holman [address] 3rd [place] [address] Cardiology 10/27/24 Herberth Stokes MD [address] [place] [address] Gastroenterology 10/27/24 Hilton Palacios MD [address] [facility], [address] [place] [address] Neurology 02/06/25 Aaron Pringle MD [address] 3rd [place] [address] General Surgery 03/07/25 Pily Delaney Clinical Manager Home CareSand Operator 07/22/24 Elie Sonali [facility] 12/29/24
--- OUTSIDE RECORDS SUMMARY | 2025-07-25 17:55 | XMS_ITS | Encounter Summary ---
Author Organization [employer] Address [address] [facility] 7t [place] [address] Care Team Providers Care Loan Manager Name Role Phone Shereen Latham MD Primary Care Provider [phone] Nupur Bullock PharmD Unavailable Sury Benitez Unavailable [phone] Julius, Nirali OD Unavailable Li Grande MD Unavailable [phone] Anselmo Gates MD Unavailable Margaret Holman Unavailable Herberth Stokes MD Unavailable [phone] Hilton Palacios MD Unavailable Aaron Pringle MD Unavailable [phone] Lori Batista Unavailable [phone] Neelima Raygoza Unavailable Encounter Details Date Type Department Care Team (Late st Contact Info) Description 07/27/2023 Orders Only [facility] [address] [place], [place] [phone] Shereen Latham MD [address] [place], [place] [phone] Hypomagnesemia Social History Tobacco Use Types Packs/Day [...] Description 08/07/2025 1:30 PM EDT Office Visit [facility] [address] [place] [address] Paz-ConnorIsa abarca, DDS [address] [place] [address] 09/13/2025 3:15 PM EST Office Visit [facility] [address] [place] [address] Shereen Latham MD [address] [place] [address] documented as of this encounter Visit Diagnoses Diagnosis Hypomagnesemia Disorders of magnesium metabolism documented in this encounter Additional Health Concerns Assessment Noted Time PHQ-9 Depression Total Score: 10 023 10:27 AM EDT documented as of this encounter Care Teams Loan Manager Relationship Specialty Start Date End Date Shereen Latham MD [address] [place] [address] PCP - General Family Medicine 11/02/18 Nupur Bullock, CharleneD [address] [place] [address] Pharmacist Internal Medicine 08/09/24 05/15/25 Sury Benitez [address] [place] [address] [address] [place] [address] Pulmonary Disease 09/27/24 Julius, Nirali, OD [address] [place] [address] Optometry 10/27/24 Li Grande MD [address] [place] [address] Hematology and Oncology 10/27/24 Anselmo Gates MD [address] [place] [address] Orthopaedic Surgery 10/27/24 Margaret Holman [address] [place] [address] Cardiology 10/27/24 Herberth Stokes MD [address] [facility] 3rd [place] [address] Gastroenterology 10/27/24 Hilton Palacios MD [address] [facility], [address] [place] [address] Neurology 02/06/25 Aaron Pringle MD 11 [facility] 3rd [place] [address] General Surgery 03/07/25 Lori Batista Registered Nurse 06/15/25 06/15/25 Neelima Raygoza 06/15/25 06/16/25 Pily Delaney Handstitching Machine Armhole FellerPostal Service Window Clerk 07/22/24 Elie Vicky [facility] Psychology 12/29/24 documented as of this encounter
--- OUTSIDE RECORDS SUMMARY | 2025-07-25 17:55 | XMS_ITS | Encounter Summary ---
Author Organization [employer] Address 75 [facility] 7 [place] [address] Care Team Providers Care Shoe Planner Name Role Phone Shereen Latham MD Primary Care Provider [phone] Sury Benitez Unavailable [phone] Nirali Madrid OD Unavailable Li rGande MD Unavailable [phone] Anselmo Gates MD Unavailable Margaret Holman Unavailable Herberth Stokes MD Unavailable [phone] Hilton Palacios MD Unavailable Aaron Pringle MD Unavailable [phone] Lori Batista Unavailable [phone] Neelima Raygoza Unavailable Reason for Visit * Reason Onset Date Comments Nurse Triage 06/07/2025 Encounter Details Date Type Department Care Team (Late st Contact Info) Description 06/07/2025 Telephone [facility] [address] [place], [place] [phone] Shereen Latham MD [address] [place], [place] [phone] Nurse Triage Social History Tobacco Use Types [...] night. Pt is advised to come to [facility] open till 8pm this evening to be seen by provider. Pt agrees with this disposition. Pt will come to [facility] after 5pm since is in the [...] was exposed to Bursae Contact pt at [phone] documented in this encounter Plan of Treatment Upcoming Encounters Date Type Department Care Team ([facility] st Contact Info) Description 08/07/2025 1:30 PM EDT Office Visit [facility] [address] [place] [address] Isa De La Rosa, JUAN FRANCISCOS [address] [place] [address] 09/13/2025 3:15 PM EST Office Visit [facility] [address] [place] [address] Shereen Latham MD [address] [place] [address] documented as of this encounter Visit Diagnoses Not on filedocumented in this encounter Additional Health Concerns Assessment Noted Time PHQ-9 Depression Total Score: 21 025 11:03 AM EDT documented as of this encounter Care Teams Shoe Planner Relationship Specialty Start Date End Date Shereen Latham MD [address] [place] [address] PCP - General Family Medicine 11/02/18 Sury Benitez [address] [place] [address] Dr [facility] [address] [place] [address] Pulmonary Disease 09/27/24 Nirali Madrid OD [address] [place] [address] Optometry 10/27/24 Li Grande MD [address] [place] [address] Hematology and Oncology 10/27/24 Anselmo Gates MD [address] [place] [address] Orthopaedic Surgery 10/27/24 Margaret Holman [address] 3rd [place] [address] Cardiology 10/27/24 Herberth Stokes MD 11 [facility] 3rd [place] [address] Gastroenterology 10/27/24 Hilton Palacios MD [address] [place] [address], [address] [place] [address] Neurology 02/06/25 Aaron Pringle MD [address] [place] [address] 3rd Floor [place] [address] General Surgery 03/07/25 Lori Batista Registered Nurse 06/15/25 06/15/25 Neelima Raygoza 06/15/25 06/16/25 Pily Delaney Tableau Report DeveloperManager Rn Case 07/22/24 Elie Vicky [facility] Psychology 12/29/24 documented as of this encounter
--- OUTSIDE RECORDS SUMMARY | 2025-07-25 17:55 | XMS_ITS | Encounter Summary ---
Author Organization [employer] Address 75 [facility] 7 [place] [address] Care Team Providers Care Hangar Attendant Name Role Phone Shereen Latham MD Primary Care Provider [phone] Sury Benitez Unavailable [phone] Nirali Madrid OD Unavailable Li Grande MD Unavailable [phone] Anselmo Gates MD Unavailable Margaret Holman Unavailable Herberth Stokes MD Unavailable [phone] Hilton Palacios MD Unavailable [phone] Aaron Pringle MD Unavailable Reason for Visit * Reason Comments Med Refill Encounter Details Date Type Department Care Team (Late st Contact Info) Description 07/02/2025 Refill [facility] [address] [place], [place] [phone] Shereen Latham MD [address] [place], [place] [phone] Alcohol abuse Social History Tobacco Use Types [...] 08/07/2025 1:30 PM EDT Office Visit [facility] [address] [place] [address] Isa De La Rosa DDS [address] [place] [address] 09/13/2025 3:15 PM EST Office Visit [facility] [address] [place] [address] Shereen Latham MD [address] [place] [address] documented as of this encounter Visit Diagnoses Diagnosis Alcohol abuse Nondependent alcohol abuse, unspecified drinking behavior documented in this encounter Additional Health Concerns Assessment Noted Time PHQ-9 Depression Total Score: 21 025 11:03 AM EDT documented as of this encounter Care Teams Hangar Attendant Relationship Specialty Start Date End Date Shereen Latham MD [address] [place] [address] PCP - General Family Medicine 11/02/18 Sury Benitez [address] [place] [address] Dr [facility] [address] [place] [address] Pulmonary Disease 09/27/24 Nirali Madrid OD [address] [address] Optometry 10/27/24 Li Grande MD [address] [place] [address] Hematology and Oncology 10/27/24 Anselmo Gates MD [address] [facility] [address] [place] [address] Orthopaedic Surgery 10/27/24 Margaret Holman 11 [facility] 3rd [place] [address] Cardiology 10/27/24 Herberth Stokes MD 11 [facility] [address]rd [place] [address] Gastroenterology 10/27/24 Hilton Palacios MD [address] [place] [address] DR, [address] [place] [address] Neurology 02/06/25 Aaron Pringle MD [address] [place] [address] 3rd [place] [address] General Surgery 03/07/25 Pily Delaney Guest Relations RepresentativeRepairer Veneer Sheet 07/22/24 Elie Vicky [facility] Psychology 12/29/24 documented as of this encounter
--- OUTSIDE RECORDS SUMMARY | 2025-07-25 17:55 | XMS_ITS | Encounter Summary ---
Author Organization [employer] Address [address] [place] [address] 7t [place] [address] Care Team Providers Care Retail Support Specialist Name Role Phone Shereen Latham MD Primary Care Provider [phone] Nupur Bullock PharmD Unavailable Sury Benitez Unavailable [phone] JuliusLester castellanosn OD Unavailable Li Grande MD Unavailable [phone] Anselmo Gates MD Unavailable Margaret Holman Unavailable Herberth Stokes MD Unavailable Hilton Palacios MD Unavailable Aaron Pringle MD Unavailable [phone] Lori Batista Unavailable [phone] Neelima Raygoza Unavailable Reason for Visit * Reason Comments Med Refill Encounter Details Date Type Department Care Team (Late st Contact Info) Description 12/02/2022 Refill [facility] 230 [place], [place] [phone] Shereen Latham MD 230 [place], [place] [phone] Wheeze (Primary Dx); Pain Social History Tobacco [...] Description 08/07/2025 1:30 PM EDT Office Visit [facility] ADULT DENTAL [address] [place] [address] Isa De La Rosa DDS [address] [place] [address] 09/13/2025 3:15 PM EST Office Visit [facility] [address] [place] [address] Shereen Latham MD [address] [place] [address] documented as of this encounter Visit Diagnoses Diagnosis Wheeze- Primary Wheezing Pain Generalized pain documented in this encounter Care Teams Retail Support Specialist Relationship Specialty Start Date End Date Shereen Latham MD [address] [place] [address] PCP - General Family Medicine 11/02/18 Nupur Bullock, CharleneD [address] [place] [address] Pharmacist Internal Medicine 08/09/24 05/15/25 Sury Benitez [address] [place] [address] [place] [address] [place] [address] Pulmonary Disease 09/27/24 Nirali Madrid OD [address] [place] [address] Optometry 10/27/24 Li Grande MD 575 [place] [address] Hematology and Oncology 10/27/24 Anselmo Gates MD [address] [place] [address] Orthopaedic Surgery 10/27/24 Margaret Holman [address] 3rd [place] [address] Cardiology 10/27/24 Herberth Stokes MD 11 [facility] 3rd [place] [address] Gastroenterology 10/27/24 Hilton Palacios MD 15 [facility], [address] [place] [address] Neurology 02/06/25 Aaron Pringle MD [address] [place] [address] General Surgery 03/07/25 Lori Batista Registered Nurse 06/15/25 06/15/25 Neelima Raygoza 06/15/25 06/16/25 Pily Delaney Charter CoordinatorOptical Manufacturing Technician 07/22/24 Elie Vicky [facility] 12/29/24 documented as of this encounter
--- OUTSIDE RECORDS SUMMARY | 2025-07-25 17:55 | XMS_ITS | Encounter Summary ---
Author Organization [employer] Address [address] [place] [address] 7t [place] [address] Care Team Providers Care Waste Water Worker Name Role Phone Shereen Latham MD Primary Care Provider [phone] Nupur Bullock PharmD Unavailable Sury Benitez Unavailable [phone] JuliusNirali castellanos OD Unavailable Li Grande MD Unavailable [phone] Anselmo Gates MD Unavailable Margaret Holman Unavailable Herberth Stokes MD Unavailable [phone] Hilton Palacios MD Unavailable Aaron Pringle MD Unavailable [phone] Lori Batista Unavailable [phone] Neelima Raygoza Unavailable Reason for Visit * Reason Onset Date Comments Medication Question 08/25/2024 Encounter Details Date Type Department Care Team ([facility] st Contact Info) Description 08/25/2024 Telephone [facility] MEDICINE 230 [place], [place] [phone] Shereen Latham MD 230 [place], [place] [phone] Medication Question Social History Tobacco Use Types [...] the past 12 months, has t he [employer], gas, oil or water [employer] threatened to shut off services in your [...] any questions you can contact pt at [phone]. documented in this encounter Plan of Treatment Upcoming Encounters Date Type Department Care Team (Late st Contact Info) Description 08/07/2025 1:30 PM EDT Office Visit [facility] ADULT DENTAL [address] [place] [address] Brandi-Isa Connor, DDS 230 [place] [address] 09/13/2025 3:15 PM EST Office Visit [facility] MEDICINE [address] [place] [address] Shereen Latham MD [address] [place] [address] documented as of this encounter Visit Diagnoses Not on filedocumented in this encounter Additional Health Concerns Assessment Noted Time PHQ-9 Depression Total Score: 13 024 4:53 PM EDT documented as of this encounter Care Teams Waste Water Worker Relationship Specialty Start Date End Date Shereen Latham MD [address] [place] [address] PCP - General Family Medicine 11/02/18 Nupur Bullock, CharleneD [address] [place] [address] Pharmacist Internal Medicine 08/09/24 05/15/25 Sury Benitez [address] [place] [address] [place] [address] Pulmonary Disease 09/27/24 Nirali Madrid OD [address] [place] [address] Optometry 10/27/24 Li Grande MD 575 [place] [address] Hematology and Oncology 10/27/24 Anselmo Gates MD [address] [place] [address] Orthopaedic Surgery 10/27/24 Margaret Holman [address] 3rd [place] [address] Cardiology 10/27/24 Herberth Stokes MD 11 [facility] 3rd [place] [address] Gastroenterology 10/27/24 Hilton Palacios MD 15 [facility], [address] [place] [address] Neurology 02/06/25 Aaron Pringle MD 11 [facility] 3rd [place] [address] General Surgery 03/07/25 Lori Batista Registered Nurse 06/15/25 06/15/25 Neelima Raygoza 06/15/25 06/16/25 Pily Delaney Nurse EducatorSenior Net Developer Architect 07/22/24 Elie Vicky [facility] Psychology 12/29/24 documented as of this encounter
--- OUTSIDE RECORDS SUMMARY | 2025-07-25 17:55 | XMS_ITS | Encounter Summary ---
Author Organization [employer] Address 75 [facility] 7t [place] [address] Care Team Providers Care Tech Ed/Woodshop Teacher Name Role Phone [place], Shereen NOLASCO Primary Care Provider Nupur Bullock PharmD Unavailable [phone] Sury Benitez Unavailable [phone] Julius, Nirali OD Unavailable Li Grande MD Unavailable [phone] Anselmo Gates MD Unavailable Margaret Holman Unavailable Herberth Stokes MD Unavailable [phone] Hilton Palacios MD Unavailable Aaron Pringle MD Unavailable [phone] Lori Batista Unavailable [phone] Neelima Raygoza Unavailable Reason for Referral * Consultation (Routine) - Closed Specialty Diagnoses / Procedures Referred By Walter t Referred To Contact Obstetrics and Gynecology Diagnoses Women's annual routine gynecological examination Stacey Khan MD 230 [place] [address] Phone: tel: fax: [facility] Women s Services [address] 5th [address] (Main Hospital Entrance) [place] Phone: tel: fax: Referral ID Status Reason Start Date Expiration Date V isits Requested Visits Authorized [id number] Closed Specialty Services Required 01/19/2025 01/19/2026 9 9 Encounter Details Date Type Department Care Team (Late st Contact Info) Description 01/19/2025 Orders Only [facility] MEDICINE 230 [place] [address] Stacey Khan MD 230 [place], [place] [phone] Women's annual routine gynecological examination (Primary Dx) [...] 1:30 PM EDT Office Visit [facility] ADULT DENTAL [address] [place] [address] Isa De La Rosa, DDS 230 [place] [address] 09/13/2025 3:15 PM EST Office Visit [facility] MEDICINE 230 [place] [address] Shereen Latham MD 230 [place] [address] Scheduled Referrals Name Type Priority Associated Diagnoses [...] Sensitivity Troponin I (01/19/2025 4:33 PM EDT) [facility] TROPONIN I HIGH SENSITIVITY 7.8 <3.5 - 17.0 ng/L [facility] Comment:The Henriquez high sens itivity Troponin-I results should beused in conjunction with other diagnostic information suchas ECG, clinical observations and information, and patientsymptoms to aid in the diagnosis of MT. 01/19/2025 4:33 PM EDT 01/19/2025 4:34 PM EDT Generic External Data Provider LAB BLOOD ORDERAB LES Final Result Performing Organization Address [facility]/ZIP Co de Phone Number [facility] [address] [place] [phone] * B Type Natriuretic Peptide (BNP) (01/19/2025 4:33 PM EDT) [facility] B Type Natriuretic Peptide 22 <100 pg/mL [facility] 01/19/2025 4:33 PM EDT 01/19/2025 4:34 PM EDT Generic External Data Provider LAB BLOOD ORDERAB LES Final Result Performing Organization Address [facility]/ZIP Co de Phone Number [facility] [address] [place] [phone] * D Dimer High Sensitivity (01/19/2025 4:33 PM EDT) [facility] D Dimer High Sensitivity <150 NG/ML [facility] Comment:D-DIMER HS REFERENCE RANGENote: [...] Provider LAB BLOOD ORDERAB LES Final Result [facility] [address] [place] [address] [phone] documented in this encounter Visit Diagnoses Diagnosis Women's annual routine gynecological examination- Primary documented in this encounter Additional Health Concerns Assessment Noted Time PHQ-9 Depression Total Score: 22 025 10:17 AM EST documented as of this encounter Care Teams Tech Ed/Woodshop Teacher Relationship Specialty Start Date End Date Shereen Latham MD 230 [place] [address] PCP - General Family Medicine 11/02/18 Nupur Bullock, CharleneD 230 [place] [address] Pharmacist Internal Medicine 08/09/24 05/15/25 Sury Benitez [address] [place] [address] [facility] 103 [place] [address] Pulmonary Disease 09/27/24 Nirali Madrid OD 267 [place] [address] Optometry 10/27/24 Li Grande MD [address] [place] [address] Hematology and Oncology 10/27/24 Anselmo Gates MD [address] [place] [address] Orthopaedic Surgery 10/27/24 Margaret Holman [address] 3rd [place] [address] Cardiology 10/27/24 Herberth Stokes MD [address] [facility] 3rd [place] [address] Gastroenterology 10/27/24 Hilton Palacios MD [address] [place] [address], [address] [place] [address] Neurology 02/06/25 Aaron Pringle MD [address] [place] [address] 3rd [place] [address] General Surgery 03/07/25 Lori Batista Registered Nurse 06/15/25 06/15/25 Neelima Raygoza 06/15/25 06/16/25 Pily Delaney Scrap WheelerRaking Machine Operator 07/22/24 Elie BRASHER [facility] Psychology 12/29/24 documented as of this encounter
--- OUTSIDE RECORDS SUMMARY | 2025-07-25 17:55 | XMS_ITS | Encounter Summary ---
Author Organization [employer] Address 75 [facility] 7t [place] [address] Care Team Providers Care Radio Electronics Officer Name Role Phone Shereen aLtham MD Primary Care Provider [phone] Nupur Bullock PharmD Unavailable [phone] Sury Benitez Unavailable [phone] Julius, Nirali OD Unavailable Li Grande MD Unavailable [phone] Anselmo Gates MD Unavailable Margaret Holman Unavailable Herberth Stokes MD Unavailable [phone] Hilton Palacios MD Unavailable Aaron Pringle MD Unavailable [phone] Lori Batista Unavailable Neelima Raygoza Unavailable Encounter Details Date Type Department Care Team (Late st Contact Info) Description 10/11/2024 Telephone [facility] MEDICINE [address] [place], [place] [phone] Shereen Latham MD 230 [place], [place] [phone] Social History Tobacco Use Types Packs/Day Years [...] 1:30 PM EDT Office Visit [facility] ADULT DENTAL [address] [place] [address] Paz-Connor, Isa, DDS 230 [place] [address] 09/13/2025 3:15 PM EST Office Visit [facility] MEDICINE [address] [place] [address] Shereen Latham MD 230 [place] [address] documented as of this encounter Visit Diagnoses Not on filedocumented in this encounter Additional Health Concerns Assessment Noted Time PHQ-9 Depression Total Score: 13 024 4:53 PM EDT documented as of this encounter Care Teams Radio Electronics Officer Relationship Specialty Start Date End Date Shereen Latham MD 230 [place] [address] PCP - General Family Medicine 11/02/18 Nupur Bullock, CharleneD 230 [place] [address] Pharmacist Internal Medicine 08/09/24 05/15/25 Sury Benitez [address] [place] [address] Dr [facility] 103 [place] [address] Pulmonary Disease 09/27/24 Nirali Madrid OD [address] [place] [address] Optometry 10/27/24 Li Grande MD 575 [place] [address] Hematology and Oncology 10/27/24 Anselmo Gates MD 10 [facility] [address] [place] [address] Orthopaedic Surgery 10/27/24 Margaret Holman [address] 3rd [place] [address] Cardiology 10/27/24 Herberth Stokes MD [address] [facility] [address] 3rd [place] [address] Gastroenterology 10/27/24 Hilton Palacios MD [address] [place] [address], [address] [place] [address] Neurology 02/06/25 Aaron Pringle MD [address] [place] [address] 3rd [place] [address] General Surgery 03/07/25 Lori Batista Registered Nurse 06/15/25 06/15/25 Neelima Raygoza 06/15/25 06/16/25 Pily Delaney Feed Management AdvisorHead Mechanic 07/22/24 Elie Vicky [facility] Psychology 12/29/24 documented as of this encounter
--- OUTSIDE RECORDS SUMMARY | 2025-07-25 17:55 | XMS_ITS | Encounter Summary ---
Author Organization [employer] Address 75 [facility] 7t [place] [address] Care Team Providers Care Windows Software Engineer Name Role Phone [place], Shereen NOLASCO Primary Care Provider [phone] Nupur Bullock PharmD Unavailable Sury Benitez Unavailable [phone] Julius, Nirali OD Unavailable Li Grande MD Unavailable [phone] Anselmo Gates MD Unavailable Margaret Holman Unavailable Herberth Stokes MD Unavailable [phone] Hilton Palacios MD Unavailable [phone] Aaron Pringle MD Unavailable [phone] Lori Batista Unavailable [phone] Neelima Raygoza Unavailable Encounter Details Date Type Department Care Team (Latest Contact Info) Description 07/06/2019 Abstract [facility] CONVERSIONS Dental, Provider, DDS Social [...] Description 08/07/2025 1:30 PM EDT Office Visit [facility] ADULT DENTAL [address] [place] [address] Paz-Connor, Isa, DDS 230 [place] [address] 09/13/2025 3:15 PM EST Office Visit [facility] MEDICINE [address] [place] [address] Shereen Latham MD [address] [place] [address] documented as of this encounter Visit Diagnoses Not on filedocumented in this encounter Care Teams Windows Software Engineer Relationship Specialty Start Date End Date Shereen Latham MD [address] [place] [address] PCP - General Family Medicine 11/02/18 Nupur Bullock, CharleneD [address] [place] [address] Pharmacist Internal Medicine 08/09/24 05/15/25 Sury Benitez [address] [place] [address] Dr [facility] 103 [place] [address] Pulmonary Disease 09/27/24 Nirali Madrid OD 267 [place] [address] Optometry 10/27/24 Li Grande MD [address] [place] [address] Hematology and Oncology 10/27/24 Anselmo Gates MD [address] [place] [address] Orthopaedic Surgery 10/27/24 Margaret Holman [address] 3rd [place] [address] Cardiology 10/27/24 Herberth Stokes MD [address] 3rd [place] [address] Gastroenterology 10/27/24 Hilton Palacios MD 15 [facility], [address] [place] [address] Neurology 02/06/25 Aaron Pringle MD [address] [place] [address] General Surgery 03/07/25 Lori Batista Registered Nurse 06/15/25 06/15/25 Neelima Raygoza 06/15/25 06/16/25 Pily Delaney Direct Casting OperatorStem Sizer 07/22/24 Elie Vicky [facility] 12/29/24 documented as of this encounter
--- OUTSIDE RECORDS SUMMARY | 2025-07-25 17:55 | XMS_ITS | Encounter Summary ---
Author Organization [employer] Address [address] [place] [address] 7 [place] [address] Care Team Providers Care Knock Up Assembler Name Role Phone Shereen Latham MD Primary Care Provider [phone] Nupur Bullock PharmD Unavailable Sury Benitez Unavailable [phone] Julius, Nirali OD Unavailable Li Grande MD Unavailable [phone] Anselmo Gates MD Unavailable Margaret Holman Unavailable Herberth Stokes MD Unavailable [phone] Hilton Palacios MD Unavailable [phone] Aaron Pringle MD Unavailable [phone] Lori Batista Unavailable [phone] Neelima Raygoza Unavailable Encounter Details Date Type Department Care Team (Late st Contact Info) Description 05/02/2024 Orders Only [facility] MEDICINE [address], [place] [phone] Shereen Latham MD 230 [place], [place] [phone] Gout, unspecified cause, unspecified chronicity, unspecified site [...] the past 12 months, has t he [employer], gas, oil or water [employer] threatened to shut off services in your [...] EDT Office Visit [facility] ADULT DENTAL [address] [place] [address] Rj Isa, DDS [address] [place] [address] 09/13/2025 3:15 PM EST Office Visit [facility] MEDICINE [address] [place] [address] Shereen Latham MD 230 [place] [address] documented as of this encounter Visit Diagnoses Diagnosis Gout, unspecified cause, unspecified chronicity, unspecified site- Primary documented in this encounter Additional Health Concerns Assessment Noted Time PHQ-9 Depression Total Score: 23 024 1:45 PM EDT documented as of this encounter Care Teams Knock Up Assembler Relationship Specialty Start Date End Date Shereen Latham MD 230 [place] [address] PCP - General Family Medicine 11/02/18 Nupur Bullock, CharleneD 230 [place] [address] Pharmacist Internal Medicine 08/09/24 05/15/25 Sury Benitez [address] [place] [address] [address] [place] [address] Pulmonary Disease 09/27/24 Nirali Madrid OD 267 [place] [address] Optometry 10/27/24 Li Grande MD [address] [place] [address] Hematology and Oncology 10/27/24 Anselmo Gates MD [address] [place] [address] [address] [place] [address] Orthopaedic Surgery 10/27/24 Margaret Holman [address] 3rd [place] [address] Cardiology 10/27/24 Herberth Stokes MD [address] [facility] [address] [facility] [address] Gastroenterology 10/27/24 Hilton Palacios MD [address] [place] [address], [address] [place] [address] Neurology 02/06/25 Aaron Pringle MD [address] [place] [address] Drive [address] [facility] [address] General Surgery 03/07/25 Lori Batista Registered Nurse 06/15/25 06/15/25 Neelima Raygoza 06/15/25 06/16/25 Pily Delaney Marketing Operations AnalystPipelines Laborer 07/22/24 Elie Vicky [facility] 12/29/24 documented as of this encounter
--- OUTSIDE RECORDS SUMMARY | 2025-07-25 17:55 | XMS_ITS | Encounter Summary ---
Author Organization [employer] Address [address] [place] [address] 7 [place] [address] Care Team Providers Care Senior Java Architect Name Role Phone Shereen Latham MD Primary Care Provider [phone] Nupur Bullock PharmD Unavailable Sury Benitez Unavailable [phone] Julius, Nirali OD Unavailable Li Grande MD Unavailable [phone] Anselmo Gates MD Unavailable Margaret Holman Unavailable Herberth Stokes MD Unavailable [phone] Hilton Palacios MD Unavailable Aaron Pringle MD Unavailable [phone] Lori Batista Unavailable [phone] Neelima Raygoza Unavailable Reason for Visit * Reason Onset Date Comments Nurse Triage 02/13/2025 Encounter Details Date Type Department Care Team (Late st Contact Info) Description 02/13/2025 Telephone [facility] MEDICINE 230 [place], [place] [phone] Shereen Latham MD 230 [place], [place] [phone] Nurse Triage Social History Tobacco Use Types [...] 08/07/2025 1:30 PM EDT Office Visit [facility] ADULT DENTAL 230 [place] [address] Isa De La Rosa, DDS 230 [place] [address] 09/13/2025 3:15 PM EST Office Visit [facility] MEDICINE 230 [place] [address] Shereen Latham MD 230 [place] [address] documented as of this encounter Visit Diagnoses Not on filedocumented in this encounter Additional Health Concerns Assessment Noted Time PHQ-9 Depression Total Score: 22 12/29/ 025 10:17 AM EST documented as of this encounter Care Teams Senior Java Architect Relationship Specialty Start Date End Date Shereen Latham MD 230 [place] [address] PCP - General Family Medicine 11/02/18 Nupur Bullock, PharmD [address] [place] [address] Pharmacist Internal Medicine 08/09/24 05/15/25 Sury Benitez [address] [place] [address] Dr [facility] 103 [place] [address] Pulmonary Disease 09/27/24 Nirali Madrid OD [address] [place] [address] Optometry 10/27/24 Li Grande MD [address] [place] [address] Hematology and Oncology 10/27/24 Anselmo Gates MD [address] [facility] [address] [place] [address] Orthopaedic Surgery 10/27/24 Margaret Holman 11 [facility] 3rd [place] [address] Cardiology 10/27/24 Herberth Stokes MD 11 [facility] 3rd [place] [address] Gastroenterology 10/27/24 Hilton Palacios MD [address] [place] [address] DR, [address] [place] [address] Neurology 02/06/25 Aaron Pringle MD [address] [place] [address] Drive 3rd Floor [place] [address] General Surgery 03/07/25 Lori Batista Registered Nurse 06/15/25 06/15/25 Neelima Raygoza 06/15/25 06/16/25 Pily Delaney Cloth ClasserSupervisor Microfilm Duplicating Unit 07/22/24 Elie Vicky [facility] Psychology 12/29/24 documented as of this encounter
--- OUTSIDE RECORDS SUMMARY | 2025-07-25 17:55 | XMS_ITS | Encounter Summary ---
Author Organization [employer] Address 75 [facility] 7t [place] [address] Care Team Providers Care Pipe Finishing Supervisor Name Role Phone [place], Shereen NOLASCO Primary Care Provider [phone] Sury Benitez Unavailable [phone] Nirali Madrid OD Unavailable Li Grande MD Unavailable [phone] Anselmo Gates MD Unavailable Margaret Holman Unavailable Herberth Stokes MD Unavailable [phone] Hilton Palacios MD Unavailable Aaron Pringle MD Unavailable [phone] Encounter Details Date Type Department Care [...] Visit [facility] ADULT DENTAL [address] [place] [address] Isa De La Rosa DDS [address] [place] [address] 09/13/2025 3:15 PM EST Office Visit [facility] MEDICINE [address] [place] [address] Shereen Latham MD 230 [place] [address] documented as of this encounter Visit Diagnoses Not on filedocumented in this encounter Additional Health Concerns Assessment Noted Time PHQ-9 Depression Total Score: 21 025 11:03 AM EDT documented as of this encounter Care Teams Pipe Finishing Supervisor Relationship Specialty Start Date End Date Shereen Latham MD [address] [place] [address] PCP - General Family Medicine 11/02/18 Sury Benitez [address] [place] [address] [address] [place] [address] Pulmonary Disease 09/27/24 Nirali Madrid OD [address] [place] [address] Optometry 10/27/24 Li [place] MD [address] [place] [address] Hematology and Oncology 10/27/24 Anselmo Gates MD 10 [facility] 203 [place] [address] Orthopaedic Surgery 10/27/24 Margaret Holman 11 [facility] 3rd [place] [address] Cardiology 10/27/24 Herberth Stokes MD 11 [facility] 3rd [place] [address] Gastroenterology 10/27/24 Hilton Palacios MD [address] [place] [address], [address] [place] [address] Neurology 02/06/25 Aaron Pringle MD [address] [place] [address] 3[address] [place] [address] General Surgery 03/07/25 Pily Delaney Fish Farm ManagerCommunity Service Aide 07/22/24 Elie Vicky [facility] Psychology 12/29/24 documented as of this encounter
--- OUTSIDE RECORDS SUMMARY | 2025-07-25 17:55 | XMS_ITS | Encounter Summary ---
Author Organization [employer] Address 75 [facility] 7 [place] [address] Care Team Providers Care Storm Window Installer Name Role Phone Shereen Latham MD Primary Care Provider [phone] Sury Benitez Unavailable [phone] Nirali Madrid OD Unavailable [phone] Li Grande MD Unavailable [phone] Anselmo Gates MD Unavailable Margaret Holman Unavailable Herberth Stokes MD Unavailable [phone] Hilton Palacios MD Unavailable [phone] Aaron Pringle MD Unavailable [phone] Reason for Visit * Reason Onset Date Comments Call Back Request 07/25/2025 Encounter Details Date Type Department Care Team (Late st Contact Info) Description 07/25/2025 Telephone [facility] MED[facility]INE [address] [place], [place] [phone] Shereen Latham MD [address] [place], [place] [phone] Call Back Request Social History Tobacco Use Types Packs/Day [...] encounter Miscellaneous Notes * Telephone Encounter - Maico Hager - 07/25/2025 9:47 AM EDT Tc from pt requesting a call back regarding medication that she is taking on top of the counter. Ptstates that she is taking Magnesium and would want to know if that is okay from the doctor or is something that is going to be needing to change. Contact pt at [phone] documented in this encounter Plan of Treatment Upcoming Encounters Date Type Department Care Team (Late st Contact Info) Description 08/07/2025 1:30 PM EDT Office Visit [facility] ADULT DENTAL [address] [place] [address] Paz-Isa Connor, DDS [address] [place] [address] 09/13/2025 3:15 PM EST Office Visit [facility] MED[facility]INE [address] [place] [address] Shereen Latham MD [address] [place] [address] documented as of this encounter Visit Diagnoses Not on filedocumented in this encounter Additional Health Concerns Assessment Noted Time PHQ-9 Depression Total Score: 21 025 11:03 AM EDT documented as of this encounter Care Teams Storm Window Installer Relationship Specialty Start Date End Date Shereen Latham MD [address] [place] [address] PCP - General Family Medicine 11/02/18 Sury Benitez [address] [place] [address] Pulmonary Disease 09/27/24 Nirali Madrid OD [address] [place] [address] Optometry 10/27/24 Li [place] MD [address] [place] [address] Hematology and Oncology 10/27/24 Anselmo Gates MD [address] [place] [address] Orthopaedic Surgery 10/27/24 Margaret Holman [address] 3rd [place] [address] Cardiology 10/27/24 Herberth Stokes MD [address] 3rd [place] [address] Gastroenterology 10/27/24 Hilton Palcaios MD [address] [facility] [address] [place] [address] Neurology 02/06/25 Aaron Pringle MD [address] 3rd [place] [address] General Surgery 03/07/25 Pily Delaney Charge Preparation TechnicianRevenue Inspector 07/22/24 Elie Vicky [facility] 12/29/24 documented as of this encounter
--- OUTSIDE RECORDS SUMMARY | 2025-07-25 17:56 | XMS_ITS | Clinical Summary ---
Author Organization [facility] Address [address] [facility] [address] [place] [address] Phone Care Team Providers Care Radio Board Operator Announcer Name Role Phone Unavailable Primary Care Provider [...] It is not the complete legal health record.[facility]
--- OUTSIDE RECORDS SUMMARY | 2025-07-25 17:56 | XMS_ITS | Encounter Summary ---
Author Organization [employer] Address 75 [facility] 7 [place] [address] Care Team Providers Care Revenue Cycle Analyst Name Role Phone [place], Shereen NOLASCO Primary Care Provider [phone] Sury Benitez Unavailable [phone] Nirali Madrid OD Unavailable Li [place] MD Unavailable [phone] Anselmo Gates MD Unavailable Margaret Holman Unavailable Herberth Stokes MD Unavailable Hilton Palacios MD Unavailable Aaron Pringle MD Unavailable [phone] Neelima Raygoza Unavailable Reason for Visit * Reason Onset Date Comments active requested appt 06/16/2025 Encounter Details Date Type Department Care Team (Late st Contact Info) Description 06/16/2025 Telephone [facility] [address] [place], [place] [phone] Isa De La Rosa DDS [address] [place], [place] [phone] active requested appt Social History Tobacco Use [...] Visit [facility] ADULT D[facility]AL [address] [place] [address] Paz-ConnorIsa abarca, DDS 230 [place] [address] 09/13/2025 3:15 PM EST Office Visit [facility] MEDICINE 230 [place] [address] Shereen Latham MD [address] [place] [address] documented as of this encounter Visit Diagnoses Not on filedocumented in this encounter Additional Health Concerns Assessment Noted Time PHQ-9 Depression Total Score: 21 025 11:03 AM EDT documented as of this encounter Care Teams Revenue Cycle Analyst Relationship Specialty Start Date End Date Shereen Latham MD 230 [place] [address] PCP - General Family Medicine 11/02/18 Sury Benitez [address] [place] [address] Dr Yates [address] [place] [address] Pulmonary Disease 09/27/24 Nirali Madrid OD [address] [place] [address] Optometry 10/27/24 Li [place] MD [address] [place] [address] Hematology and Oncology 10/27/24 Anselmo Gates MD [address] [place] [address] Orthopaedic Surgery 10/27/24 Margarte Holman [address]rd [place] [address] Cardiology 10/27/24 Herberth Stokes MD [address] 3rd [place] [address] Gastroenterology 10/27/24 Hilton Palacios MD 15 [facility] [address] [place] [address] Neurology 02/06/25 Aaron Pringle MD [address] [facility] [place] [address] General Surgery 03/07/25 Neelima Raygoza 06/15/25 06/16/25 Pily Delaney Med AsstHammer Heater 07/22/24 Elie Vicky [facility] Psychology 12/29/24 documented as of this encounter
--- OUTSIDE RECORDS SUMMARY | 2025-07-25 17:56 | XMS_ITS | Clinical Summary ---
Author Organization 175 [facility] Address 175 [place] [address] Phone Care Team Providers Care Clinical Support Associate Name Role Phone Shereen Latham MD Primary Care Provider [phone] Social History Tobacco Use Types Packs/Day Years [...] 1:00 PM EDT Consult Orthopedic Surgery - [place] [address] [phone] Antony Garrett DPM [address] [address] Health Maintenance Due Date Last Done Comments [...] topic Insurance MEDICAID - [place] Care Teams Clinical Support Associate Relationship Specialty Start Date End Date Noa, MD Shereen [address] [place] [phone] PCP - General 01/13/1996
--- OUTSIDE RECORDS SUMMARY | 2025-07-25 17:56 | XMS_ITS | Encounter Summary ---
Author Organization [employer] Address 75 [facility] 7t [place] [address] Care Team Providers Care Diving Fisher Name Role Phone Shereen Latham MD Primary Care Provider [phone] Nupur Bullock PharmD Unavailable Sury Benitez Unavailable [phone] JuliusLester castellanosn OD Unavailable Li [place] MD Unavailable [phone] Anselmo Gates MD Unavailable Margaret Holman Unavailable Herberth Stokes MD Unavailable [phone] Hilton Palacios MD Unavailable Aaron Pringle MD Unavailable [phone] Lori Batista Unavailable [phone] Neelima Raygoza Unavailable Reason for Visit * Reason Comments Med Refill Encounter Details Date Type Department Care Team (Late st Contact Info) Description 01/17/2025 Refill [facility] [address] [place], [place] [phone] Shereen Latham MD [address] [place], [place] [phone] Pain Social History Tobacco Use Types Packs/Day [...] Description 08/07/2025 1:30 PM EDT [facility] [address] [place] [address] Isa De La Rosa DDS [address] [place] [address] 09/13/2025 3:15 PM EST [facility] [address] [place] [address] Shereen Latham MD [address] [place] [address] documented as of this encounter Visit Diagnoses Diagnosis Pain Generalized pain documented in this encounter Additional Health Concerns Assessment Noted Time PHQ-9 Depression Total Score: 22 025 10:17 AM EST documented as of this encounter Care Teams Diving Fisher Relationship Specialty Start Date End Date Shereen Latham MD [address] [place] [address] PCP - General Family Medicine 11/02/18 Nupur Bullock PharmD [address] [place] [address] Pharmacist Internal Medicine 08/09/24 05/15/25 Sury Benitez [address] [place] [address] [address] [place] [address] Pulmonary Disease 09/27/24 Nirali Madrid OD [address] [place] [address] Optometry 10/27/24 Li [place] MD [address] [place] [address] Hematology and Oncology 10/27/24 Anselmo Gates MD [address] [place] [address] [address] [place] [address] Orthopaedic Surgery 10/27/24 Margaret Holman [address] [place] [address] Cardiology 10/27/24 Herberth Stokes MD [address] [facility] [address] [place] [address] Gastroenterology 10/27/24 Hilton Palacios MD [address] [place] [address], [address] [place] [address] Neurology 02/06/25 Aaron Pringle MD [address] [place] [address] Drive [address] [facility] [place] [address] General Surgery 03/07/25 Lori Batista Registered Nurse 06/15/25 06/15/25 Neelima Raygoza 06/15/25 06/16/25 Pily Delaney [employer] Research AnalystWarp Tester 07/22/24 Elie Vicky [facility] 12/29/24 documented as of this encounter
== END 2025-07-25 16:08 | disposition home or self-care (01) ==
PROVIDERS: PCP Family Medicine
DX: M65.312 Trigger thumb, left thumb (principal)
CPT/HCPCS: 20550; 99213

== ENCOUNTER → 2025-07-25 14:46 | Outpatient (BNVA) | payer MEDICAID, SELFPAY | PROVIDERS: PCP Family Medicine | DX: M65.312 Trigger thumb, left thumb (principal) | CPT/HCPCS: 20550; 99212; J1100; J2003 ==

== ENCOUNTER 2025-07-27 06:49 | Day surgery (SDC) | payer MEDICAID, SELFPAY ==
--- OUTSIDE RECORDS SUMMARY | 2025-07-11 13:06 | XMS_ITS | Encounter Summary ---
Author Organization [employer] Address [address] [place] [address] 7 [place] [address] Care Team Providers Care Driver Trainee Name Role Phone Shereen Latham MD Primary Care Provider [phone] Nupur Bullock PharmD Unavailable Sury Benitez Unavailable [phone] Julius, Nirali OD Unavailable Li Grande MD Unavailable [phone] Anselmo Gates MD Unavailable Margaret Holman Unavailable Herberth Stokes MD Unavailable [phone] Hilton Palacios MD Unavailable Aaron Pringle MD Unavailable [phone] Lori Batista Unavailable [phone] Neelima Raygoza Unavailable Reason for Visit * Reason Onset Date Comments Nurse Triage 05/25/2024 Encounter Details Date Type Department Care Team (Late st Contact Info) Description 05/25/2024 Telephone [facility] MEDICINE 230 [place], [place] [phone] Shereen Latham MD 230 [place], [place] [phone] Nurse Triage Social History Tobacco Use Types [...] the past 12 months, has t he [email or web address], [employer], oil or water [employer] threatened to shut off services in your [...] . Pt reports Pt was seen in [facility] 05/11/24 for continued leftfoot pain and Pt was seen by nurses' aide, Leta Lunsford MD 05/11/24 also (report is on the chart). Pt had been advised to stop BP med chlorthalidone per nurses' aide [facility] because that particular medication is known to [...] anxiety. Pt is advised to come to [facility] today , open till 8pm, to be [...] Description 08/07/2025 1:30 PM EDT Office Visit [facility] ADULT DENTAL 230 [place] [address] Paz-Connor, Isa, DDS 230 [place] [address] 09/13/2025 3:15 PM EST Office Visit [facility] MEDICINE 230 [place] [address] Shereen Latham MD [address] [place] [address] documented as of this encounter Visit Diagnoses Not on filedocumented in this encounter Additional Health Concerns Assessment Noted Time PHQ-9 Depression Total Score: 22 024 9:12 AM EDT documented as of this encounter Care Teams Driver Trainee Relationship Specialty Start Date End Date Shereen Latham MD 230 [place] [address] PCP - General Family Medicine 11/02/18 Nupur Bullock PharmD [address] [place] [address] Pharmacist Internal Medicine 08/09/24 05/15/25 Sury Benitez [address] [place] [address] [place] [address] Pulmonary Disease 09/27/24 Nirali Madrid OD [address] [place] [address] Optometry 10/27/24 Li Grande MD [address] [place] [address] Hematology and Oncology 10/27/24 Anselmo Gates MD [address] [place] [address] Orthopaedic Surgery 10/27/24 Margaret Holman [address] 3rd [place] [address] Cardiology 10/27/24 Herberth Stokes MD [address] 3rd [place] [address] Gastroenterology 10/27/24 Hilton Palacios MD [address] [facility] [address], [address] [place] [address] Neurology 02/06/25 Aaron Pringle MD [address] [place] [address] General Surgery 03/07/25 Lori Batista Registered Nurse 06/15/25 06/15/25 Neelima Raygoza 06/15/25 06/16/25 Pily Delaney Rubber Gasket Inspector TrimmerLime Vat Tender 07/22/24 Elie Vicky [facility] 12/29/24 documented as of this encounter
--- OUTSIDE RECORDS SUMMARY | 2025-07-11 13:06 | XMS_ITS | Encounter Summary ---
Author Organization [employer] Address [address] [place] [address] 7 [place] [address] Care Team Providers Care Mule Driver Name Role Phone Shereen Latham MD Primary Care Provider [phone] Nupur Bullock PharmD Unavailable Sury Benitez Unavailable [phone] Julius, Nirali OD Unavailable Li Grande MD Unavailable [phone] Anselmo Gates MD Unavailable Margaret Holman Unavailable Herberth Stokes MD Unavailable [phone] Hilton Palacios MD Unavailable [phone] Aaron Pringle MD Unavailable [phone] Lori Batista Unavailable [phone] Neelima Raygoza Unavailable Encounter Details Date Type Department Care Team (Late st Contact Info) Description 05/02/2024 Orders Only [facility] 230 [place], [place] [phone] Shereen Latham MD 230 [place], [place] [phone] Gout, unspecified cause, unspecified chronicity, unspecified site [...] the past 12 months, has t he [employer], gas, oil or water [employer] threatened to shut off services in your [...] 1:30 PM EDT Office Visit [facility] ADULT DENTAL 230 [place] [address] Rj Isa, DDS [address] [place] [address] 09/13/2025 3:15 PM EST Office Visit [facility] 230 [place] [address] Shereen Latham MD 230 [place] [address] documented as of this encounter Visit Diagnoses Diagnosis Gout, unspecified cause, unspecified chronicity, unspecified site- Primary documented in this encounter Additional Health Concerns Assessment Noted Time PHQ-9 Depression Total Score: 23 024 1:45 PM EDT documented as of this encounter Care Teams Mule Driver Relationship Specialty Start Date End Date Shereen Latham MD 230 [place] [address] PCP - General Family Medicine 11/02/18 Nupur Bullock, CharleneD 230 [place] [address] Pharmacist Internal Medicine 08/09/24 05/15/25 Sruy Benitez [address] [place] [address] [address] [place] [address] Pulmonary Disease 09/27/24 Nirali Madrid OD 267 [place] [address] Optometry 10/27/24 Li Grande MD [address] [place] [address] Hematology and Oncology 10/27/24 Anselmo Gates MD [address] [place] [address] [address] [place] [address] Orthopaedic Surgery 10/27/24 Margaret Holman [address] 3rd [place] [address] Cardiology 10/27/24 Herberth Stokes MD [address] [facility] [address] [facility] [place] [address] Gastroenterology 10/27/24 Hilton Palacios MD [address] [place] [address], [address] [place] [address] Neurology 02/06/25 Aaron Pringle MD [address] [place] [address] [address] [facility] [place] [address] General Surgery 03/07/25 Lori Batista Registered Nurse 06/15/25 06/15/25 Neelima Raygoza 06/15/25 06/16/25 Pily Delaney Research Lab AssistantSecond Time Worker 07/22/24 Elie Vicky [facility] 12/29/24 documented as of this encounter
--- OUTSIDE RECORDS SUMMARY | 2025-07-11 13:07 | XMS_ITS | Encounter Summary ---
Author Organization [employer] Address [address] [facility] 7t [place] [address] Care Team Providers Care Otm Consultant Name Role Phone Noa, Shereen NOLASCO Primary Care Provider [phone] Nupur Bullock PharmD Unavailable Sury Benitez Unavailable [phone] Julius, Nirali OD Unavailable Li Grande MD Unavailable [phone] Anselmo Gates MD Unavailable Margaret Holman Unavailable Herberth Stokes MD Unavailable [phone] Hilton Palacios MD Unavailable Aaron Pringle MD Unavailable [phone] Lori Batista Unavailable [phone] Neelima Raygoza Unavailable Encounter Details Date Type Department Care Team (Late st Contact Info) Description 04/26/2024 Orders Only [facility] [address] [place], [place] [phone] Junie Damon MD [address] [place], [place] [phone] Social History Tobacco Use Types Packs/Day Years [...] Upcoming Encounters Date Type Department Care Team ([facility] st Contact Info) Description 08/07/2025 1:30 PM EDT Office Visit [facility] ADULT DENTAL [address] [place] [address] Paz-Connor, Isa, DDS [address] [place] [address] 09/13/2025 3:15 PM EST Office Visit [facility] MEDICINE [address] [place] [address] Shereen Latham MD [address] [place] [address] documented as of this encounter Visit Diagnoses Not on filedocumented in this encounter Additional Health Concerns Assessment Noted Time PHQ-9 Depression Total Score: 024 1:45 PM EDT documented as of this encounter Care Teams Otm Consultant Relationship Specialty Start Date End Date Shereen Latham MD [address] [place] [address] PCP - General Family Medicine 11/02/18 Nupur Bullock PharmD [address] [place] [address] Pharmacist Internal Medicine 08/09/24 05/15/25 Sury Benitez [address] [place] [address] Dr [facility] [address] [place] [address] Pulmonary Disease 09/27/24 Nirali Madrid OD [address] [place] [address] Optometry 10/27/24 Li Grande MD [address] [place] [address] Hematology and Oncology 10/27/24 Anselmo Gates MD [address] [facility] [address] [place] [address] Orthopaedic Surgery 10/27/24 Margaret Holman [address]rd [place] [address] Cardiology 10/27/24 Herberth Stokes MD [address] [facility] [address] [place] [address] Gastroenterology 10/27/24 Hilton Palacios MD [address] [place] [address], [address] [place] [address] Neurology 02/06/25 Aaron Pringle MD [address] [place] [address] Drive [address]rd [facility] [place] [address] General Surgery 03/07/25 Lori Batista Registered Nurse 06/15/25 06/15/25 Neelima Raygoza 06/15/25 06/16/25 Pily Delaney Blueprint TracerFood Critic 07/22/24 Elie Vicky [facility] 12/29/24 documented as of this encounter
--- OUTSIDE RECORDS SUMMARY | 2025-07-11 13:07 | XMS_ITS | Encounter Summary ---
Author Organization [employer] Address [address] [facility] 7 [place] [address] Care Team Providers Care Education Supervisor Name Role Phone Shereen Latham MD Primary Care Provider [phone] Nupur Bullock PharmD Unavailable Sury Benitez Unavailable [phone] Julius, Nirali OD Unavailable Li Grande MD Unavailable [phone] Anselmo Gates MD Unavailable Margaret Holman Unavailable Herberth Stokes MD Unavailable [phone] Hilton Palacios MD Unavailable Aaron Pringle MD Unavailable [phone] Lori Batista Unavailable [phone] Neelima Raygoza Unavailable Reason for Visit * Reason Comments Med Refill Encounter Details Date Type Department Care Team (Late st Contact Info) Description 06/21/2024 Refill [facility]S [address] [place], [place] [phone] Shereen Latham MD [address] [place], [place] [phone] Mild intermittent asthma, unspecified whether complicated; Pain [...] Description 08/07/2025 1:30 PM EDT Office Visit [facility] ADULT DENTAL [address] [place] [address] Paz-Connor, Isa, DDS 230 [place] [address] 09/13/2025 3:15 PM EST Office Visit [facility] MEDICINE [address] [place] [address] Shereen Latham MD [address] [place] [address] documented as of this encounter Visit Diagnoses Diagnosis Mild intermittent asthma, unspecified whether complicated Pain Generalized pain documented in this encounter Additional Health Concerns Assessment Noted Time PHQ-9 Depression Total Score: 13 024 4:53 PM EDT documented as of this encounter Care Teams Education Supervisor Relationship Specialty Start Date End Date Shereen Latham MD [address] [place] [address] PCP - General Family Medicine 11/02/18 Nupur Bullock, CharleneD [address] [place] [address] Pharmacist Internal Medicine 08/09/24 05/15/25 Sury Benitez [address] [place] [address] [place] [address] [place] [address] Pulmonary Disease 09/27/24 Nirali Madrid OD [address] [place] [address] Optometry 10/27/24 Li Grande MD [address] [place] [address] Hematology and Oncology 10/27/24 Anselmo Gates MD [address] [place] [address] Orthopaedic Surgery 10/27/24 Margaret Holman [address] 3rd [place] [address] Cardiology 10/27/24 Herberth Stokes MD 11 [facility] 3rd [place] [address] Gastroenterology 10/27/24 Hilton Palacios MD [address] [facility], [address] [place] [address] Neurology 02/06/25 Aaron Pringle MD [address] [facility] [address] [place] [address] General Surgery 03/07/25 Lori Batista Registered Nurse 06/15/25 06/15/25 Neelima Raygoza 06/15/25 06/16/25 Pily Delaney Hogshead Stock ClerkNailhead Puncher 07/22/24 Elie Vicky [facility] 12/29/24 documented as of this encounter
--- OUTSIDE RECORDS SUMMARY | 2025-07-11 13:07 | XMS_ITS | Encounter Summary ---
Author Organization [employer] Address [address] [place] [address] 7 [place] [address] Care Team Providers Care Decaler Name Role Phone Shereen Latham MD Primary Care Provider [phone] Nupur Bullock PharmD Unavailable Sury Benitez Unavailable [phone] Julius, Nirali OD Unavailable Li Grande MD Unavailable [phone] Anselmo Gates MD Unavailable Margaret Holman Unavailable Herberth Stokes MD Unavailable [phone] Hilton Palacios MD Unavailable [phone] Aaron Pringle MD Unavailable [phone] Lori Batista Unavailable [phone] Neelima Raygoza Unavailable Reason for Visit * Reason Onset Date Comments Appointment Request 04/25/2025 Encounter Details Date Type Department Care Team (Late st Contact Info) Description 04/25/2025 Telephone [facility] MEDICINE [address] [place], [place] [phone] Shereen Latham MD 230 [place], [place] [phone] Appointment Request Social History Tobacco Use Types [...] encounter Miscellaneous Notes * Telephone Encounter - Cheryl Izaguirre - 04/25/2025 9:50 AM EDT TC from pt requesting to r/s today appt. documented in this encounter Plan of Treatment Upcoming Encounters Date Type Department Care Team (Late st Contact Info) Description 08/07/2025 1:30 PM EDT Office Visit [facility] ADULT DENTAL 230 [place] [address] Paz-ConnorAlfredo abarcafemia, DDS [address] [place] [address] 09/13/2025 3:15 PM EST Office Visit [facility] MEDICINE [address] [place] [address] Shereen Latham MD [address] [place] [address] documented as of this encounter Visit Diagnoses Not on filedocumented in this encounter Additional Health Concerns Assessment Noted Time PHQ-9 Depression Total Score: 22 12/29/ 025 10:17 AM EST documented as of this encounter Care Teams Decaler Relationship Specialty Start Date End Date Shereen Latham MD [address] [place] [address] PCP - General Family Medicine 11/02/18 Nupur Bullock, CharleneD [address] [place] [address] Pharmacist Internal Medicine 08/09/24 05/15/25 Sury Benitez [address] [place] [address] [place] [address] Pulmonary Disease 09/27/24 Nirali Madrid OD [address] [place] [address] Optometry 10/27/24 Li Grande MD [address] [place] [address] Hematology and Oncology 10/27/24 Anselmo Gates MD [address] [place] [address] Orthopaedic Surgery 10/27/24 Margaret Holman [address] 3rd [place] [address] Cardiology 10/27/24 Herberth Stokes MD [address] [facility] [address] [place] [address] Gastroenterology 10/27/24 Hilton Palacios MD 15 [facility], [address] [place] [address] Neurology 02/06/25 Aaron Pringle MD [address]rd [place] [address] General Surgery 03/07/25 Lori Batista Registered Nurse 06/15/25 06/15/25 Neelima Raygoza 06/15/25 06/16/25 Pily Delaney Inhalation Therapy TeacherMannequin Molder 07/22/24 Elie Vicky [facility] Psychology 12/29/24 documented as of this encounter
--- OUTSIDE RECORDS SUMMARY | 2025-07-11 13:07 | XMS_ITS | Encounter Summary ---
Author Organization [employer] Address 75 [facility] 7t [place] [address] Care Team Providers Care Contract Accountant Name Role Phone Noa, Shereen NOLASCO Primary Care Provider [phone] Nupur Bullock PharmD Unavailable Sury Benitez Unavailable [phone] Julius, Nirali OD Unavailable Li Grande MD Unavailable [phone] Anselmo Gates MD Unavailable Margaret Holman Unavailable Herberth Stokes MD Unavailable Hilton Palacios MD Unavailable Aaron Pringle MD Unavailable [phone] Lori Batista Unavailable [phone] Neelima Raygoza Unavailable Encounter Details Date Type Department Care Team (Latest Contact Info) Description 08/16/2021 Abstract [facility] CONVERSIONS Dental, Provider, DDS Social [...] 08/07/2025 1:30 PM EDT Office Visit [facility] ADULT DENTAL [address] [place] [address] Paz-Connor, Isa, DDS [address] [place] [address] 09/13/2025 3:15 PM EST Office Visit [facility] MEDICINE [address] [place] [address] Shereen Latham MD [address] [place] [address] documented as of this encounter Visit Diagnoses Not on filedocumented in this encounter Care Teams Contract Accountant Relationship Specialty Start Date End Date Shereen Latham MD [address] [place] [address] PCP - General Family Medicine 11/02/18 Nupur Bullock, CharleneD [address] [place] [address] Pharmacist Internal Medicine 08/09/24 05/15/25 Sury Benitez [address] [place] [address] [address] Pulmonary Disease 09/27/24 Nirali Madrid OD [address] [place] [address] Optometry 10/27/24 Li Grande MD [address] [place] [address] Hematology and Oncology 10/27/24 Anselmo Gates MD [address] [place] [address] Orthopaedic Surgery 10/27/24 Margaret Holman [address]rd [place] [address] Cardiology 10/27/24 Herberth Stokes MD [address] 3rd [place] [address] Gastroenterology 10/27/24 Hilton Palacios MD [address] [facility] [address] [place] [address] Neurology 02/06/25 Aaron Pringle MD [address] [place] [address] General Surgery 03/07/25 Lori Batista Registered Nurse 06/15/25 06/15/25 Neelima Raygoza 06/15/25 06/16/25 Pily Delaney Clerical AideBedspread Cutter 07/22/24 Elie Vicky [facility] 12/29/24 documented as of this encounter
--- OUTSIDE RECORDS SUMMARY | 2025-07-11 13:07 | XMS_ITS | Clinical Summary ---
Author Organization [employer] Address [address] [facility] 7 [place] [address] Care Team Providers Care Hvac Engineering Technician Name Role Phone Freedom, Shereen NOLASCO Primary Care Provider [phone] Sury Benitez Unavailable [phone] Nirali Madrid OD Unavailable Li Grande MD Unavailable [phone] Anselmo Gates MD Unavailable Margaret Holman Unavailable Herberth Stokes MD Unavailable [phone] Hilton Palacios MD Unavailable Aaron Pringle MD Unavailable [phone] Allergies Active Allergy Reactions Criticality Noted [...] tablet 3 01/13/20 25 Active sodium chloride (Dora) 0.65 % nasal sprayIndication s:Nasal congestion Administer [...] being evaluated for tachycardia and has a roving tester laboratory in place. I recommended a left breast [...] being evaluated for tachycardia and has a roving tester laboratory in place. I recommended a left breast [...] 11:51 AM EDT): -per note from Margaret Holman [...] (03/02/2025 11:54 AM EDT): -per note from [facility] 02/27/25 EKG last visit showed sinus tachycardia, [...] 04/21/24 with uric acid 7.9 -Seen by professional poker player Dr. Bernstein 05/11/24 or evaluation of acute gout affecting left foot. -Pt admitted 07/25/24-07/2524 for swelling, pain, and warmth in the right knee. Patient had a low fever (100.3 F) and elevated WBC (78182 cells/uL), CRP, and ESR. Orthopedic surgery consulted [...] daily for prophylaxis -Seen by Dr. Clarke professional poker player 04/19/25 Continue allopurinol 200 mg daily, plan to repeat acid level before next visit and increase allopurinol titrate allopurinol if needed to reach serum uric acid level <6 mg/dL(2020 [place] [employer] guideline for the management [...] 04/21/24 with uric acid 7.9 -Seen by professional poker player Dr. Bernstein 05/11/24 or evaluation of acute gout affecting left foot. -Pt admitted 07/25/24-07/2524 for swelling, pain, and warmth in the right knee. Patient had a low fever (100.3 F) and elevated WBC (41396 cells/uL), CRP, and ESR. Orthopedic surgery consulted [...] daily for prophylaxis -Seen by Dr. Clarke professional poker player 04/19/25 Continue allopurinol 200 mg daily, plan to repeat acid level before next visit and increase allopurinol titrate allopurinol if needed to reach serum uric acid level <6 mg/dL(2020 [place] [employer] guideline for the management [...] 04/21/24 with uric acid 7.9 -Seen by professional poker player Dr. Bernstein 05/11/24 or evaluation of acute gout affecting left foot. -Pt admitted 07/25/24-07/2524 for swelling, pain, and warmth in the right knee. Patient had a low fever (100.3 F) and elevated WBC (00851 cells/uL), CRP, and ESR. Orthopedic surgery consulted [...] reach serum uric acid level <6 mg/dL(2020 [place] [employer] guideline for the management [...] reach serum uric acid level <6 mg/dL(2020 [place] [employer] guideline for the management [...] ON 08/24/2024 9:45 AM BY JOLIE PA [facility] (07/25/2024 - 07/27/2024) Patient presented with swelling, pain, and warmth in the right knee. Patient had a low fever (100.3 F) and elevated WBC (64758 cells/uL), CRP, and ESR. Orthopedic surgery consulted [...] by mouth once daily for [address] [facility] ED (08/07/2024) Patient presented for right knee [...] failure with reduced EF during admission to [facility] 06/22/24. - She was started on [...] effusion and indeterminate diastolic function -Seen by [facility] Cardiology 08/01/24 : exercise nuclear stress [...] again until 07/2024. Last echo 06/23/[address] [facility] heart failure admission, showed EF 55-60%, small [...] failure with reduced EF during admission to [facility] 06/22/24. - She was started on [...] effusion and indeterminate diastolic function -Seen by [facility] 08/01/24 : exercise nuclear stress [...] again until 07/2024. Last echo 06/23/[address] [facility] heart failure admission, showed EF 55-60%, small [...] with reduced EF during recent admission to [facility] 06/22/24. Pt was volume overloaded therefore [...] with reduced EF during recent admission to [facility] 06/22/24. Pt was volume overloaded therefore [...] failure with reduced EF during admission to [facility] 06/22/24. - She was started on [...] effusion and indeterminate diastolic function -Seen by [facility] 08/01/24 : exercise nuclear stress [...] failure with reduced EF during admission to [facility] 06/22/24. - She was started on [...] effusion and indeterminate diastolic function -Seen by [facility] 08/01/24 : exercise nuclear stress [...] Complex care coordination 01/11/2024 Overview (01/11/2024): -Has [employer] TECHNICIAN services with Ch[facility] -She is applying [facility] 01/11/2024 -In our complex care management program -referred to CB on 01/04/2024 -Messaged sent to [employer] workforce investment act career manager for assistance in care visits Assessment & Plan (06/22/2025 11:51 AM EDT): -Has [employer] AND SOIL TECHNICIAN services with [facility]avo Martin is applying [facility] 01/11/2024 -In our complex care management program -referred to [facility] on 01/04/2024 -Messaged sent to [employer] workforce investment act career manager for assistance in care visits Assessment & Plan (04/26/2025 4:15 PM EDT): -Has [employer] SOIL TECHNICIAN services with [facility] Martin is applying [facility] 01/11/2024 -In our complex care management program -referred to [facility] on 01/04/2024 -Messaged sent to [employer] workforce investment act career manager for assistance in care visits Assessment & Plan (12/29/2024 10:21 AM EST): -Has [employer] SOIL TECHNICIAN services with [facility] Martin is applying [facility] 01/11/2024 -In our complex care management program -referred to [facility] on 01/04/2024 -Messaged sent to [employer] workforce investment act career manager for assistance in care visits Assessment & Plan (08/24/2024 9:19 AM EDT): -Has [employer] SOIL TECHNICIAN services with [facility] Martin is applying [facility] 01/11/2024 -In our complex care management program -referred to [facility] on 01/04/2024 -Messaged sent to [employer] workforce investment act career manager for assistance in care visits Assessment & Plan (06/29/2024 4:06 PM EDT): -Has [employer] SOIL TECHNICIAN services with [facility] Martin is applying [facility] 01/11/2024 -In our complex care management program -referred to [facility] on 01/04/2024 -Messaged sent to [employer] workforce investment act career manager for assistance in care visits Assessment & Plan (01/11/2024 9:30 AM EDT): -Has [employer] AND SOIL TECHNICIAN services with [facility] Martin is applying [facility] 01/11/2024 -In our complex care management program -referred to [facility] on 01/04/2024 -Messaged sent to [employer] workforce investment act career manager for assistance in care visits Generalized [...] Pain Management team and will reconnect with [facility]. Information given to patient. PLAN: (check [...] intervention , Patient to reach out to [facility] team as needed, and Patient to engage in OP therapy Provided patient with support in scheduling an Intake appt with [facility]. Anemia 07/29/2023 Overview (06/22/2025): Lab Results Component Value Date FERRITIN 144 03/02/2025 FERRITIN 180 11/08/2024 HGB 11.2 (L) 03/02/2025 HGB 11.4 (L) 12/29/2024 HGB 12.5 07/01/2022 HGB 12.2 01/23/2022 HEMATOCRIT 37.0 07/01/2022 HEMATOCRIT 36.0 01/23/2022 Pt does not want to take iron orally, she wants to go back to hematology for transfusion - Iron infusions ordered by Ob Nurse DR. Grande - She recieved two sessions [...] for transfusion - Iron infusions ordered by Ob Nurse DR. Grande - She recieved two sessions [...] for transfusion - Iron infusions ordered by Ob Nurse DR. Grande - She recieved two sessions [...] for transfusion - Iron infusions ordered by Ob Nurse DR. Grande - She recieved two sessions [...] for transfusion - Iron infusions ordered by Ob Nurse DR. Grande - She recieved two sessions [...] pedro back by: Janett Ortega Person calling: Nub[employer] Date:06/16/24 Time: 1218 Saw CDTM on 08/16/24 [...] pedro back by: Janett Ortega Person calling: [employer]ub[employer] Date:06/16/24 Time: 1218 Assessment & Plan (07/29/2023 4:34 PM EDT): Received magnesium IV in ER -Dose increased to TID - Recheck in 2 weeks Other specified health status 07/20/2023 Overview (06/22/2025): -next physical exam due after 06/22/26 -eye care facilitated by [facility] -dental home is [facility] -health care proxy filed 06/29/24 Assessment & Plan (06/22/2025 11:51 AM EDT): -next physical exam due after 06/22/26 -eye care facilitated by [facility] -dental home is [facility] -health care proxy filed 06/29/24 Assessment & Plan (06/29/2024 4:03 PM EDT): -next physical exam due after 06/29/25 -eye care facilitated by [facility] -dental home is [facility] -health care proxy given and filed [...] had ultrasound sound for abdominal pain at [facility] revealing diffusely echogenic parenchyma with focal sparing [...] had ultrasound sound for abdominal pain at [facility] revealing diffusely echogenic parenchyma with focal sparing [...] had ultrasound sound for abdominal pain at [facility] revealing diffusely echogenic parenchyma with focal sparing [...] had ultrasound sound for abdominal pain at [facility] revealing diffusely echogenic parenchyma with focal sparing [...] had ultrasound sound for abdominal pain at [facility] revealing diffusely echogenic parenchyma with focal sparing [...] had ultrasound sound for abdominal pain at [facility]. Ultrasound showed diffusely echogenic parenchyma with focal sparing around the gallbladder. No suspicious lesions. Impression showed liver likely representing hepatic steatosis and non- obstructing right kidney stone. Benign essential hypertension 12/13/2021 Overview (06/22/2025): -Blood pressure is at goal -Continue lifestyle modifications -Continue current medications - Prescribed spironolactone (Aldactone) 25 MG tablet 11/09/24 -06/20/25 programming engineer held spironolactone Assessment & Plan (06/22/2025 11:51 AM EDT): -Blood pressure is at goal -Continue lifestyle modifications -Continue current medications - Prescribed spironolactone (Aldactone) 25 MG tablet 11/09/24 -06/20/25 programming engineer held spironolactone Assessment & Plan (04/26/2025 4:15 [...] subsequently declined -Admitted for alcohol detox at [facility] 04/09/24 -reports she is currently not [...] subsequently declined -Admitted for alcohol detox at [facility] 04/09/24 -reports she is currently not [...] subsequently declined -Admitted for alcohol detox at [facility] 04/09/24 -reports she is currently not [...] subsequently declined -Admitted for alcohol detox at [facility] 04/09/24 -reports she is currently not [...] received phenobarb improved her symptoms, patient declined district wildlife manager help to place her in rehab, is [...] received phenobarb improved her symptoms, patient declined district wildlife manager help to place her in rehab, is [...] tumor 2.2 cm ER positive, RI positive, HER-2/PEREZ negative, two sentinel nodes negative. -S/p RIGHT [facility]aste[facility] with [facility] chemotherapy started Oct, completed 4 [...] being evaluated for tachycardia and has a roving tester laboratory in place. I recommended a left breast [...] tumor 2.2 cm ER positive, RI positive, HER-2/PEREZ negative, two sentinel nodes negative. -S/p RIGHT mastectomy with sentinel node [facility]an based chemotherapy started Oct, completed 4 [...] being evaluated for tachycardia and has a roving tester laboratory in place. I recommended a left breast [...] tumor 2.2 cm ER positive, RI positive, HER-2/PEREZ negative, two sentinel nodes negative. -S/p RIGHT mastectomy with sentinel node [facility]/Cytoxan based chemotherapy started Oct, completed 4 [...] being evaluated for tachycardia and has a roving tester laboratory in place. I recommended a left breast [...] tumor 2.2 cm ER positive, RI positive, HER-2/PEREZ negative, two sentinel nodes negative. -S/p RIGHT mastectomy with sentinel node bx by Dr. Prescott [facility] -Adriamycin/Cytoxan based chemotherapy started Oct, completed [...] tumor 2.2 cm ER positive, RI positive, HER-2/PEREZ negative, two sentinel nodes negative. -S/p RIGHT mastectomy with sentinel node [facility]/Cytoxan based chemotherapy started Oct, completed 4 [...] tumor 2.2 cm ER positive, RI positive, HER-2/PEREZ negative, two sentinel nodes negative. -S/p RIGHT mastectomy with sentinel node [facility]/Cytoxan based chemotherapy started Oct, completed 4 [...] tumor 2.2 cm ER positive, RI positive, HER-2/PEREZ negative, two sentinel nodes negative. -S/p RIGHT mastectomy with sentinel node [facility]/Cytoxan based chemotherapy started Oct, completed 4 [...] tumor 2.2 cm ER positive, RI positive, HER-2/PEREZ negative, two sentinel nodes negative. -S/p RIGHT mastectomy with sentinel node [facility]/Cytoxan based chemotherapy started Oct, completed 4 [...] tumor 2.2 cm ER positive, RI positive, HER-2/PEREZ negative, two sentinel nodes negative. -S/p RIGHT mastectomy with sentinel node [facility]/Cytoxan based chemotherapy started Oct, completed 4 [...] tumor 2.2 cm ER positive, RI positive, HER-2/PEREZ negative, two sentinel nodes negative. -S/p RIGHT mastectomy with sentinel node [facility]/Cytoxan based chemotherapy started Oct, completed 4 [...] tumor 2.2 cm ER positive, RI positive, HER-2/PEREZ negative, two sentinel nodes negative. -S/p RIGHT mastectomy with sentinel node [facility]/Cytoxan based chemotherapy started Oct, completed 4 [...] tumor 2.2 cm ER positive, RI positive, HER-2/PEREZ negative, two sentinel nodes negative. -S/[facility] started Oct, completed [...] tumor 2.2 cm ER positive, RI positive, HER-2/PEREZ negative, two sentinel nodes negative. -S/p RIGHT mastectomy with sentinel node [facility]/Cytoxan based chemotherapy started Oct, completed 4 [...] Overview (06/22/2025): Lab Results Component Value Date [id number] 79.4 05/15/2025 [id number] 58.3 06/16/2024 [id number] 106.4 01/04/2024 Assessment & Plan (04/26/2025 4:15 PM EDT): Lab Results Component Value Date [id number] 58.3 06/16/2024 [id number] 106.4 01/04/2024 [id number] 76.8 09/22/2023 Orders: Vitamin D, 25-Hydroxy, Total, Immunoassay; Future Assessment & Plan (06/29/2024 3:39 PM EDT): Lab Results Component Value Date [id number] 58.3 06/16/2024 [id number] 106.4 01/04/2024 [id number] 76.8 09/22/2023 Assessment & Plan (12/14/2023 12:09 PM EST): Lab Results Component Value Date [id number] 76.8 09/22/2023 -Labs ordered for further evaluation: Vitmain D, 25-hydroxy, Total, Immunoassay. 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 Per Dr. Krish Loomis's note from [facility], pt was due for repeat colposcopy in [...] CIN2-3. Per Dr. Krish Loomis's note from [facility], pt was due for repeat colposcopy in [...] CIN2-3. Per Dr. Krish Loomis's note from [facility], pt was due for repeat [...] CIN2-3. Per Dr. Krish Loomis's note from [facility], pt was due for repeat colposcopy in 2011. -Total Vaginal Hysterectomy 08/27/17 ('with MONICA 2 pathology and negative resection margins'). Per note dated 11/27/17 Dr. Reyes; 'patient to discontinue PAP screening'. -Vaginal pap NILM HPV negative 08/2018, per not no further paps indicated Severe episode of recurrent major depressive disorder, with psychotic features 04/19/2014 Overview (12/29/2024): [place]. Has appt. 12/30/24. Had intake for psychiatry [...] Health Integration Plan Internal Follow up with [facility] Patient Self Plan Patient to utilize skills provided in intervention , Patient to reach out to [facility] team as needed, Patient to reach out to [facility] as needed, and will contact [facility] Intake number to connect with middle or intermediate school principal OP services, and psychiatrist. Rule Out Diagnoses: [...] as pharmacomtherapy, [facility] smoking cessation group, and [facility] pharmacy smoking cessation clinic Discussed USPSTF recommends [...] as pharmacomtherapy, [facility] smoking cessation group, and [facility] pharmacy smoking cessation clinic Discussed USPSTF recommends [...] as pharmacomtherapy, [facility] smoking cessation group, and [facility] pharmacy smoking cessation clinic Discussed USPSTF recommends [...] as pharmacomtherapy, [facility] smoking cessation group, and [facility] pharmacy smoking cessation clinic Discussed USPSTF recommends [...] as pharmacomtherapy, [facility] smoking cessation group, and [facility] pharmacy smoking cessation clinic Discussed USPSTF recommends [...] as pharmacomtherapy, [facility] smoking cessation group, and [facility] pharmacy smoking cessation clinic Discussed USPSTF recommends [...] of breath) 06/29/2024 Overview (12/29/2024): -Followed by [facility] Pulmonology with Sury Benitez NP -02/2024 [...] Plan (12/29/2024 11:03 AM EST): -Followed by [facility] Pulmonology with Sury Benitez NP -02/2024 [...] if needed. -pt reports she saw her budder and is continuing management with them. . Assessment & Plan (07/13/2024 2:15 PM EDT): -referred to pulmonology 06/29/24 -Pt reports she has appt to see budder 08/01/24 Assessment & Plan (06/29/2024 4:49 PM [...] flare 05/11/2024 12/29/2024 Overview (07/13/2024): Seen by professional poker player Dr. Bernstein 05/11/24 or evaluation of acute [...] Plan (07/13/2024 2:21 PM EDT): Seen by professional poker player Dr. Bernstein 05/11/24 or evaluation of acute [...] EDT): Patient requesting a Physical for her [employer]OP AND SOIL TECHNICIAN hours to be re-instated. On exam today, her vitals are stable and her exam seems unchanged from previous one. Work up in progress for her c/o bilateral foot pain Hospital discharge follow-up 06/18/2023 07/20/2023 Assessment & Plan (07/14/2023 10:23 AM EDT): Patient here for a HDF. She was admitted to [facility] from 06/05-06/08 . She presented with concerns [...] on scene within 10 minutes, transfer completed [facility] ER called with expect Hypertension 05/26/2023 12/14/2023 Assessment & Plan (05/26/2023 12:12 PM EDT): Not controlled today Pt says she took her Lisinopril and chlorthalidone this morning Hypokalemia 12/09/2022 10/27/2024 Hyperaldosteronism 11/16/2022 3 Overview (11/16/2022): Seen by [facility] 04/03/2022. Initially seen 12/2021 for hyper[address]. Labs [facility] 10/2021 aldosterone 8, plasma renin 0.11, aldosterone/renin 72.7. She was likely on spironolactone and lisinopril at time of labs. Advise no spironolactone for 6 weeks and recheck renin aldosterone levels with renal panel and magnesium in home inspector. Assessment & Plan (11/16/2022 10:55 AM EST): Seen by [facility] 04/03/2022. Initially seen 12/2021 for hyper[address]. Labs [facility] 10/2021 aldosterone 8, plasma renin 0.11, aldosterone/renin 72.7. She was likely on spironolactone and lisinopril at time of labs. Advise no spironolactone for 6 weeks and recheck renin aldosterone levels with renal panel and magnesium in home inspector. Generalized pain 09/14/2014 06/08/2025 Anxiety 04/19/2014 01/28/2024 Polysubstance abuse 04/19/2014 04/04/20 25 Encounters Date Type Department Care Team Description 07/02/2025 Refill [facility] [address] [place] [id number] Shereen Lahtam MD Alcohol abuse 06/28/2025 Orders Only [facility] External Provider, [facility] Bilateral malignant neoplasm of breast in female, unspecified estrogen receptor status, unspecified site of breast (CMS/HCC) (Primary Dx); Abnormal mammogram 06/23/[address] [address] Shereen Latham MD 06/22/2025 11:15 AM EDT Office Visit [address] [address] Shereen Latham MD Trigger finger, unspecified finger, [...] specified health status 06/22/2025 Travel 06/21/[address] [address] Shereen Latham MD chartprep 06/16/2025 10:15 AM EDT Office Visit [facility] [address] [place] [phone] Naomi De Jesus ANP Right otitis media, unspecified otitis media type (Primary Dx); Heart failure with preserved ejection fraction, unspecified HF chronicity ([facility]); Shortness of breath; Nasal congestion 06/16/2025 Telephone [facility] [address] [place] [phone] Isa De La Rosa DDS active requested appt 06/16/2025 Patient Outreach [facility] [address] [place] [address] Shereen Latham MD Care Coordination (Communication to PT assigned CP Coordinator) 06/16/2025 Travel 06/15/2025 Telephone [facility] [address] [place] [phone] Shereen Latham MD ER Follow-up 06/15/2025 Patient Outreach [facility] [address] [place] [address] Shereen Latham MD Care Coordination ([facility] ED Follow Up) 06/15/2025 Patient Outreach [facility] [address] [place] [address] Shereen Latham MD Care Coordination (CP Care Coordination Chart Review) 06/15/2025 Patient Outreach [address] [address] Shereen Latham MD 06/15/2025 Patient Outreach [address] [address] Shereen Latham MD 06/14/2025 2:20 PM EDT Office Visit [facility] [address] [place] [phone] Junie Damon MD Shortness of breath; Precordial pain 06/14/2025 Travel 06/14/2025 Orders Only [facility] [address] [place] [phone] Shereen Latham MD Sebaceous cyst of labia (Primary Dx) 06/09/2025 Telephone [facility] [address] [place] [phone] Shereen Latham MD Referral 06/09/2025 Refill [facility] [address] [place] [address] Shereen Latham MD Pain 06/07/2025 6:00 PM EDT Office Visit [facility] [address] [place] [phone] Tari Chance NP Cough in adult patient (Primary Dx); Viral illness; Elevated blood pressure reading in office with diagnosis of hypertension 06/07/2025 Travel 06/07/[address] [address] Shereen Latham MD Nurse Triage 06/02/[address] [address] Shereen Latham MD Referral 06/01/2025 Orders Only GENERIC EXTERNAL DATA DEPARTMENT Provider, Generic External Data History of right breast cancer (Primary Dx); Abnormal mammogram 05/24/2025 11:30 AM EDT Office Visit [facility] [address] [place] [phone] Shereen Latham MD Class 1 obesity due to excess calories with serious comorbidity and body mass index (BMI) of 31.0 to 31.9 in adult (Primary Dx); Dietary counseling; Exercise counseling; Ductal hyperplasia of breast; Callus of foot; Pain in both feet 05/24/2025 Travel 05/23/2025 Telephone [facility] [address] [place] [address] Shereen Latham MD CHART PREP 05/18/2025 Orders Only GENERIC EXTERNAL DATA DEPARTMENT Provider, Generic External Data History of right breast cancer (Primary Dx); Abnormal mammogram 05/15/2025 Travel 05/03/2025 Refill [facility] [address] [place] [address] Shereen Latham MD Benign essential hypertension 05/02/2025 Refill [facility] [address] [place] [address] Shereen Latham MD Pain; Benign essential hypertension 04/26/2025 9:30 AM EDT Office Visit [address] [address] Shereen Latham MD Abnormal mammogram (Primary Dx); [...] unspecified iron deficiency anemia type 04/26/[address] [address] Shereen Latham MD Medication Question 04/26/2025 Travel 04/25/[address] [address] Shereen Latham MD CHART PREP 04/25/[address] [address] Shereen Latham MD Appointment Request 04/19/2025 Orders Only GENERIC EXTERNAL DATA DEPARTMENT Provider, Generic External Data History of right breast cancer (Primary Dx) 04/18/2025 Patient Outreach [facility] [address] [place] [address] Shereen Latham MD Pre-visit Planning (SDOH was [...] Description 08/07/2025 1:30 PM EDT Office Visit [facility] [address] [place] [address] Paz-ConnorIsa abarca, DDS [address] [place] [address] 09/13/2025 3:15 PM EST Office Visit [facility] [address] [place] [address] Shereen Latham MD [address] [place] [address] Health Maintenance Due Date Last Done Comments [...] 5 AM EDT 06/28/2025 11:08 AM EDT [facility] - 07/05/2025 2:23 PM EDT ----- ------- Name: Azra Cast Age/Sex: 49/F : 1975 Unit#: [id number] Attend Dr: Aaron Pringle MD Re06/28/25 Status: [facility] Location: [facility] Disch: ----- ------- SPEC : [id number] RECD: 06/28/25 STATUS: CRAIG ANDERSEN NUM: [id number] MAYA: 06/28/25-[address] [facility] [address]: Aaron Pringle MD ENTERED: 06/28/25-1110 SP TYPE: Surgical OTHR DR: Shereen Latham MD ORDERED: Gross Micro L5, ER, RI, IOC, IHC, Add. immunos, IHC ER/RI/Her2N/4, Ki-67, p63, SMM, [id number] Diagnosis Breast, left, lumpectomy: - Invasive ductal [...] from posterior Lymph nodes Number examined: 0 Dysart nodes: 0 Axillary nodes: 0 CONTINUED ON NEXT PAGE ----- ------- Name: CastFannieAzra Age/Sex: 49/F : 1975 Unit#: [id number] Attend Dr: Aaron Pringle MD Re06/28/25 [place] [facility] [place] [facility] Disch: ----- ------- SPEC : [id number] RECD: 06/28/25 STATUS: CRAIG ANDERSEN NUM: [id number] MAYA: 06/28/25-10[address] [facility] [address]: Aaron Pringle MD ENTERED: 06/28/25-1111 SP TYPE: Surgical OTHR DR: Shereen Latham MD ORDERED: Gross Micro L5, ER, RI, IOC, IHC, Add. immunos, IHC ER/RI/Her2N/4, Ki-67, p63, SMM, [id number] Diagnosis (Continued) Number involved: N/A With macrometastases: N/A With micrometastases: N/A With isolated tumor cells: N/A Extranodal extension: N/A Size of largest met. deposit: N/A Treatment effect Breast: Not identified Lymph nodes: Not identified TNM: pT1b NX Ancillary studies: ER positive, RI positive, HER2 negative (0), low proliferation Clinical [...] Azra Cast Age/Sex: 49/F : 1975 Unit#: [id number] Attend Dr: Aaron Pringle MD Re06/28/25 Status: [facility] Location: [facility] Disch: ----- ------- SPEC : [id number] RECD: 06/28/25-8 STATUS: CRAIG ANDERSEN NUM: [id number] MAYA: 06/28/25-[address] [facility] [address]: Aaron Pringle MD ENTERED: 06/28/25-1110 SP TYPE: Surgical OTHR DR: Shereen Latham MD ORDERED: Gross Micro L5, ER, RI, IOC, IHC, Add. immunos, IHC ER/RI/Her2N/4, Ki-67, p63, SMM, [id number] Gross Description (Continued) fatty parenchyma is otherwise unremarkable without additional discrete abnormality. Cap Maker sections to include entire area of ill-defined [...] Envision+ Dual Link System-HRP. Progesterone receptor: Clone [id number]; WorkTouch Mach 4 detection system. Her-2/perez immunohistochemistry performed in accordance with ASCO/CAP recommendations (2007) and update (2013). Hercep Test Detection system: Polymer type Scoring criteria: For ER/RI and Her-2/perez: All internal (if present) and external controls react appropriately. CONTINUED ON NEXT PAGE ----- ------- Name: Azra Cast Age/Sex: 49/F : 1975 Unit#: [id number] Attend Dr: Aaron Pringle MD Re06/28/25 [place] [facility] [place] [facility] Disch: ----- ------- SPEC : [id number] RECD: 06/28/25-1108 STATUS: CRAIG ANDERSEN NUM: [id number] MAYA: 06/28/25-[address]: Aaron Pringle MD ENTERED: 06/28/25-1110 SP TYPE: Surgical OTHR DR: Shereen Latham MD ORDERED: Gross Micro L5, ER, RI, IOC, IHC, Add. immunos, IHC ER/RI/Her2N/4, Ki-67, p63, SMM, [id number] Gross Description (Continued) ER and RI immunostains are scored as Positive (> 10% [...] Arch of Pathol Lab Med, 142 2018: 9100-5619. Marce EDMONDS, Margot VASQUEZ, et al. Estrogen and Progesterone Receptor Testing in Breast Cancer: ASCO/CAP Guideline Update. Arch of Pathol Lab Med, 144 2020: 545-563. Thanh N, Cristel P, et al. Adjuvant abemaciclib combined with endocrine therapy for high- risk early breast cancer: updated efficacy and Ki-67 analysis from the monarchE study. Jennie Oncol. 2020;32(12):6169-6220. This case was reviewed intradepartmentally; results were communicated to Dr. Pringle on 07/05/2025. Special studies ordered and performed: Immunostains for ER, RI, HER2, Ki 67, p63 and smooth muscle myosin IHC S/NG Disclaimer NOTE: Unless otherwise stated, all tissue is formalin-fixed and paraffin-embedded. Some or all of the immunohistochemical tests reported herein may have been developed and their performance characteristics determined by [facility]. They have not been cleared [...] Name: Azra Cast Age/Sex: 49/F : 1975 [id number]#: [id number] Attend Dr: Aaron Pringle MD Re06/28/25 Status: [facility] Location: [facility] Disch: ----- ------- SPEC : [id number] RECD: 06/28/25-1108 STATUS: CRAIG ANDERSEN NUM: [id number] MAYA: 06/28/25-[address] [facility] [address]: Aaron Pringle MD ENTERED: 06/28/25-1111 SP TYPE: Surgical OTHR DR: Shereen Latham MD ORDERED: Gross Micro L5, ER, RI, IOC, IHC, Add. immunos, IHC ER/RI/Her2N/4, Ki-67, p63, SMM, [id number] Copies To: Shereen Latham MD [facility] [address] [place] [address] [facility] [address] [place], [place] [phone] ----- ------- Signed (signature on file) Beck Whatley MD 07/05/25 1423 ----- ------- END OF REPORT us Generic External Data Provider LAB BLOOD ORDERAB LES Final Result [facility] [address] [place] [phone] * BI MM SURGICAL SPECIMEN (06/28/2025 10:13 AM EDT) Anatomical Region Laterality Modality Breast Bilateral Mammography 06/28/2025 10:1 3 AM EDT Narrative 06/28/2025 11:09 AM EDT [address] [address] [id number] Mammography Report Signed Patient: Azra Cast MR#: [id number] : 1975 Acct:[id number] Age/Sex: 49 / F ADM Date: 06/28/25 Loc: SONA Attending Dr: Aaron Pringle MD Ordering Physician: Aaron Pringle MD Results: Date of Service: 06/28/25 Follow Up: Procedure(s): MM surgical specimen Accession Number(s): [id number] cc: Shereen Latham MD; Aaron Pringle MD Single left breast specimen radiograph demonstrates a tag with the barbell clip and a second tag with a top hat clip. Electronically signed by: Cara Rodriges DO 06/28/2025 11:07 AM EDT RP Dictated By: Cara Rodriges DO Signed By: <Electronically signed by Cara Rodriges DO in OV> 06/28/25 1107 DD/ 1013 TD/TT: 06/28/25 1104 Cyanide Pot Tender: Procedure Note Donotuseinterpreter, Image - 06/28/2025 [place] [address] [id number] Mammography Report Signed Patient: Nicolas CastR#: [id number] : 1975Acct:[id number] Age/Sex: 49 / FADM Date: 06/28/25 Loc: SONA Attending Dr: Aaron Pringle MD Ordering Physician: Aaron Pringleesults: Date of Service: 06/28/25Follow Up: Procedure(s): MM surgical specimen Accession Number(s): [id number] cc: Shereen Latham MD; Aaron Pringle MD Single left breast specimen radiograph demonstrates a tag with the barbell clip and a second tag with a top hat clip. Electronically signed by: Cara Rodriges DO 06/28/2025 11:07 AM EDT RP Dictated By: Cara Rodriges DO Signed By: <Electronically signed by Cara Rodriges DO in OV> 06/28/25 1107 DD/ 1013 TD/TT: 06/28/25 1104 Cyanide Pot Tender: [facility] External Provider IMG BI PROCEDURES Edited Result - Final * High Sensitivity Troponin I (06/14/2025 5:50 PM EDT) TROPONIN I HIGH SENSITIVITY 12.4 <3.5 - 17.0 ng/L [facility] Comment:The Orellana high sens itivity Troponin-I results should beused in conjunction with other diagnostic information suchas ECG, clinical observations and information, and patientsymptoms to aid in the diagnosis of SD. 06/14/2025 5:50 PM EDT 06/14/2025 5:54 PM EDT Generic External Data Provider LAB BLOOD ORDERAB LES Final Result Performing Organization Address City/State/[facility] Co de Phone Number [facility] [address] [place] [phone] * XR Chest 1 View (06/14/2025 12:37 PM EDT) Anatomical Region Laterality Modality Chest Radiographic Celina ging 06/14/2025 12:3 7 PM EDT Narrative 06/14/2025 1:54 PM EDT [address] [address] XRay Report Signed Patient: Azra Cast MR#: [id number] : 1975 Acct:[id number] Age/Sex: 49 / F ADM Date: 06/14/25 Loc: HO.ED Attending Dr: Ordering Physician: Corrina Badillo PA-C Date of Service: 06/14/25 Procedure(s): XR chest 1V Accession Number(s): [id number] cc: Shereen Latham MD; Corrina Badillo PA-C [...] 06/14/25 1351 DD/ 1237 TD/TT: 06/14/25 1348 Cyanide Pot Tender: Procedure Note Donotuseinterpreter, Image - 06/14/[address] [address] XRay Report Signed Patient: Maged Cast#: [id number] : 1975Acct:[id number] Age/Sex: 49 / FADM Date: 06/14/25 Loc: .ED Attending Dr: Ordering Physician: Corrina Badillo PA-C Date of Service: 06/14/25 Procedure(s): XR chest 1V Accession Number(s): [id number] cc: Shereen Latham MD; Corrina Badillo PA-C [...] 06/14/25 1351 DD/ 1237 TD/TT: 06/14/25 1348 Cyanide Pot Tender: [facility] External Provider IMG XR PROCEDURES Final [...] is included. Influenza A Negative Negative, Indeterminate [facility] QC Media Lot # [id number] [facility] Lot# Expiration Date [facility] Swab 06/14/2025 12:0 0 PM EDT Junie Upton MD POINT OF CARE TEST EN TER/EDIT ORDERABLES Final Result Performing Organization Address [facility] Co de Phone Number [facility] [address] [place] [phone] * POCT Rapid Influenza B ORELLANA ID NOW (06/14/2025 11:57 AM EDT) Only the most recent of2 resultswithin the time period is included. Influenza B Negative Negative, Indeterminate [facility] QC Media Lot # [id number] [facility] Lot# Expiration Date [facility] Swab 06/14/2025 11:5 7 AM EDT Junie Upton MD POINT OF CARE TEST EN TER/EDIT ORDERABLES Final Result Performing Organization Address City/[facility] Co de Phone Number [facility] [address] [place] [phone] * POCT Rapid Covid-19 BinaxNOW (06/14/2025 [...] AM EDT Narrative 06/14/2025 11:42 AM EDT [facility] [place] [address] Mammography Report Signed Patient: Azra Cast MR#: [id number] : 1975 Acct:[id number] Age/Sex: 49 / F ADM Date: 06/14/25 Loc: HO.MAMMO Attending Dr: Aaron Pringle MD Ordering Physician: Aaron Pringle MD Results: Date of Service: 06/14/25 Follow Up: Procedure(s): MM RF Tag device add Accession Number(s): [id number] cc: Shereen Latham MD; Aaron Pringle MD [...] -Length: 7 cm. 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 TARGET: Top hat clip. ANESTHESIA: carbonated lidocaine . LOCALIZATION SYSTEM: -[employer] LOCallizer Wire-Free Guidance System with 12g needle applicator. -Length: 7 cm. -RADIOFREQUENCY TAG: ID # [id number] RF Tag ID confirmed with LOCalizer Guidance [...] 06/14/25 1139 DD/ 1000 TD/TT: 06/14/25 1100 Cyanide Pot Tender: Procedure Note Donotuseinterpreter, Image - 06/14/2025 [facility] [address] [place] [address] Mammography Report Signed Patient: Maged Cast#: [id number] : 1975Acct:[id number] Age/Sex: 49 / FADM Date: 06/14/25 Loc: HO.MAMMO Attending Dr: Aaron Pringle MD Ordering Physician: Aaron Pringleesults: Date of Service: 06/14/25Follow Up: Procedure(s): MM RF Tag device add Accession Number(s): [id number] cc: Shereen Latham MD; Aaron Pringle MD [...] ANESTHESIA: carbonated lidocaine 1%: . LOCALIZATION SYSTEM: -[employer] LOCallizer Wire-Free Guidance System with 12g needle applicator. -Length: 7 cm. 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 TARGET: Top hat clip. ANESTHESIA: carbonated lidocaine . LOCALIZATION SYSTEM: -[employer] LOCallizer Wire-Free Guidance System with 12g needle applicator. -Length: 7 cm. -RADIOFREQUENCY TAG: ID # [id number] RF Tag ID confirmed with LOCalizer Guidance [...] 06/14/25 1139 DD/ 1000 TD/TT: 06/14/25 1100 Cyanide Pot Tender: [facility] External Provider IMG BI PROCEDURES Final Result * MM RF Tag Device Left (06/14/2025 10:00 AM EDT) Anatomical Region Laterality Modality Breast Left Mammography 06/14/2025 10:0 0 AM EDT Narrative 06/14/2025 11:42 AM EDT [address] [place] [address] Mammography Report Signed Patient: Azra Cast MR#: [id number] : 1975 Acct:[id number] Age/Sex: 49 / F ADM Date: 06/14/25 Loc: HO.MAMMO Attending Dr: Aaron Pringle MD Ordering Physician: Aaron Pringle MD Results: Date of Service: 06/14/25 Follow Up: Procedure(s): MM RF Tag device LT Accession Number(s): [id number] cc: Shereen Latham MD; Aaron Pringle MD [...] ANESTHESIA: carbonated lidocaine 1%: . LOCALIZATION SYSTEM: -[employer] LOCallizer Wire-Free Guidance System with 12g needle applicator. -Length: 7 cm. 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 TARGET: Top hat clip. ANESTHESIA: carbonated lidocaine . LOCALIZATION SYSTEM: -[employer] LOCallizer Wire-Free Guidance System with 12g needle applicator. -Length: 7 cm. -RADIOFREQUENCY TAG: ID # [id number] RF Tag ID confirmed with LOCalizer Guidance [...] 06/14/25 1139 DD/ 1000 TD/TT: 06/14/25 1100 Cyanide Pot Tender: Procedure Note Donotmalouinterpreter, Image - 06/14/2025 [facility] [address] [place], [place] [address] Mammography Report Signed Patient: Maged Cast#: [id number] : 1975Acct:[id number] Age/Sex: 49 / FADM Date: 06/14/25 Loc: HO.MAMMO Attending Dr: Aaron Pringle MD Ordering Physician: Aaron Pringleults: Date of Service: 06/14/25Follow Up: Procedure(s): MM RF Tag device LT Accession Number(s): [id number] cc: Shereen Latham MD; Aaron Pringle MD [...] ANESTHESIA: carbonated lidocaine 1%: . LOCALIZATION SYSTEM: -[employer] LOCallizer Wire-Free Guidance System with 12g needle applicator. -Length: 7 cm. 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 TARGET: Top hat clip. ANESTHESIA: carbonated lidocaine . LOCALIZATION SYSTEM: -[employer] LOCallizer Wire-Free Guidance System with 12g needle applicator. -Length: 7 cm. -RADIOFREQUENCY TAG: ID # [id number] RF Tag ID confirmed with LOCalizer Guidance [...] 06/14/25 1139 DD/ 1000 TD/TT: 06/14/25 1100 Cyanide Pot Tender: [facility] External Provider IMG BI PROCEDURES Final Result * BI Mammogram Diagnostic Tomosynthesis Left (06/01/2025 11:25 AM EDT) Only the most recent of2 resultswithin the time period is included. Anatomical Region Laterality Modality Breast Left Mammography 06/01/2025 11:2 5 AM EDT Narrative 06/01/2025 1:24 PM EDT [address] [id number] Mammography Report Signed with Kaylie Patient: Azra Cast MR#: [id number] : 1975 Acct:[id number] Age/Sex: 49 / F ADM Date: 06/01/25 Loc: .MRI Attending Dr: Aaron Pringle MD Ordering Physician: Aaron Pringle MD Results: 1Nega tive Date of Service: 06/01/25 Follow Up: 1 Year From Orig inal Mammogram Procedure(s): MM tomosynthesis diagnostic LT Accession Number(s): [id number] cc: Shereen Latham MD; Aaron Pringle MD [...] needle core biopsies. Electronically signed by: Cara oRdriges DO 06/07/2025 12:32 PM EDT RP Addendum [...] and with use of Gadavist gadolinium contrast. [employer] introducer localization system is used with grid. LESION: Retroareolar region middle depth. LOCAL ANESTHESIA: 6 mL 1% lidocaine; 10 mL 1% lidocaine with epinephrine. NEEDLE: [employer] 9-gauge vacuum assisted core biopsy device. [...] 06/01/25 1321 DD/ 24 TD/TT: 06/01/25 115 Cyanide Pot Tender: Procedure Note Donotmalouinterpreter, Image - 06/07/[address] [address] [id number] Mammography Report Signed with Addenda Patient: Maged Cast#: [id number] : 1975Acct:[id number] Age/Sex: 49 / FADM Date: 06/01/25 Loc: HO.MRI Attending Dr: Aaron Pringle MD Ordering Physician: Aaron Pringleesults: 1Nega tive Date of Service: 06/01/25Follow Up: 1 Year From Orig inal Mammogram Procedure(s): MM tomosynthesis diagnostic LT Accession Number(s): [id number] cc: Shereen Latham MD; Aaron Pringle MD [...] and with use of Gadavist gadolinium contrast. [employer] introducer localization system is used with grid. LESION: Retroareolar region middle depth. LOCAL ANESTHESIA: 6 mL 1% lidocaine; 10 mL 1% lidocaine with epinephrine. NEEDLE: [employer] 9-gauge vacuum assisted core biopsy device. APPROACH: [...] 06/01/25 1321 DD/ 1125 TD/TT: 06/01/25 1150 Cyanide Pot Tender: [facility] External Provider IMG BI PROCEDURES Edited Result - Final * Hematoxylin and Eosin Stain (06/01/2025 10:53 AM EDT) Only the most recent of2 resultswithin the time period is included. 06/01/2025 10:5 3 AM EDT 06/01/2025 11:23 AM EDT [facility] - 06/02/2025 3:10 PM EDT ----- ------- Name: Azra Cast Age/Sex: 49/F : 1975 Unit#: [id number] Attend Dr: Aaron Pringle MD Re06/01/25 Status: DEP REF Location: .MRI Disch: ----- ------- SPEC : [id number] RECD: 06/01/25 STATUS: CRAIG GONZALEZRitu NUM: [id number] MAYA: 06/01/[address] [facility] [address]: Aaron Pringle MD ENTERED: 06/01/25 SP [...] developed and their performance characteristics determined by [facility]. They have not been cleared or approved by the U.S. Food and Drug Administration (FDA). However, the FDA has determined that such clearance or approval is not necessary. This laboratory is certified under the Clinical Laboratory Improvement Amendments of 1988 (CLIA) as qualified to perform high complexity clinical laboratory testing. Copies To: Shereen Latham MD [address] [address] CONTINUED ON NEXT PAGE ----- ------- Name: CastAzra Age/Sex: 49/F : 1975 Unit#: [id number] Attend Dr: Aaron Pringle MD Re06/01/25 Status: DEP REF Location: .MRI Disch: ----- ------- SPEC : [id number] RECD: 06/01/25 STATUS: CRAIG ANDERSEN NUM: [id number] MAYA: 06/01/[address] [facility] [address]: Aaron Pringle MD ENTERED: 06/01/25 SP TYPE: Surgical OTHR DR: Shereen Latham MD ORDERED: HE Stain/2, Gross Micro L4 COMMENTS: As per the specimen requisition slip the specimen is collected at 1053 and placed in formalin at 1100. Copies To: (Continued) Aaron Pringle MD [facility] [address] [place] [address] ----- ------- Signed (signature on file) Beck Whatley MD 06/02/25 1510 ----- ------- END OF REPORT us Generic External Data Provider LAB BLOOD ORDERAB LES Final Result [facility] [address] [place] [phone] * BI MR Guided Breast Biopsy Left (06/01/2025 9:04 AM EDT) Only the most recent of2 resultswithin the time period is included. Anatomical Region Laterality Modality Breast Left Magnetic Resonan ce 06/01/2025 9:04 AM EDT Narrative 06/01/2025 1:24 PM EDT [address] [address] Magnetic Resonance Report Signed with Kaylie Patient: Azra Cast MR#: [id number] : 1975 Acct:[id number] Age/Sex: 49 / F ADM Date: 06/01/25 Loc: HO.MRI Attending Dr: Aaron Pringle MD Ordering Physician: Aaron Pringle MD Date of Service: 06/01/25 Procedure(s): MR guided breast biopsy LT Accession Number(s): [id number] cc: Shereen Latham MD; Aaron Pringle MD [...] and with use of Gadavist gadolinium contrast. [employer] introducer localization system is used with grid. LESION: Retroareolar region middle depth. LOCAL ANESTHESIA: 6 mL 1% lidocaine; 10 mL 1% lidocaine with epinephrine. NEEDLE: [employer] 9-gauge vacuum assisted core biopsy device. [...] 06/01/25 1321 DD/ 0904 TD/TT: 06/01/25 1100 Cyanide Pot Tender: Procedure Note Donotuseinterpreter, Image - 06/07/2025 [place] [address] Magnetic Resonance Report Signed with Addenda Patient: Maged Cast#: [id number] : 1975Acct:[id number] Age/Sex: 49 / FADM Date: 06/01/25 Loc: .MRI Attending Dr: Aaron Pringle MD Ordering Physician: Aaron Pringle MD Date of Service: 06/01/25 Procedure(s): MR guided breast biopsy LT Accession Number(s): [id number] cc: Shereen Latham MD; Aaron Pringle MD [...] and with use of Gadavist gadolinium contrast. [employer] introducer localization system is used with grid. LESION: Retroareolar region middle depth. LOCAL ANESTHESIA: 6 mL 1% lidocaine; 10 mL 1% lidocaine with epinephrine. NEEDLE: Yillio 9-gauge vacuum assisted core biopsy device. APPROACH: [...] OV> 06/01/25 1321 DD/ 3 TD/TT: 06/01/251099 Cyanide Pot Tender: [facility] External Provider IMG MRI PROCEDURES Edited Result - Final * Vitamin D, 25-Hydroxy, Total, Immunoassay (05/15/2025 1:46 PM EDT) Vitamin D 25-OH Total 79.4 >30 ng/mL [facility] Comment: Health Based Reference Values*< 20 ng/mL [id number] ng/mL Insufficient> 30 ng/mL Sufficient*Candi INGRAM. N [...] BLOOD ORDERABLES Final Result Performing Organization Address [facility]/State/ZIP Co de Phone Number [facility] [address] [place] [phone] * Magnesium (05/15/2025 1:46 PM EDT) Magnesium 1.6 1.6 - 2.6 mg/dL [facility] Blood Venous blood specimen / Unknown 05/15/2025 1:46 PM EDT 05/15/2025 4:50 PM EDT Shereen Latham MD LAB BLOOD ORDERABLES Final Result Performing Organization Address [facility]/ZIP Co de Phone Number [facility] [address] [place] [phone] * BI MR Breast w and w/o Contrast Bilateral (04/20/2025 12:20 PM EDT) Anatomical Region Laterality Modality Breast Bilateral Magnetic Resonan ce 04/20/2025 12:2 0 PM EDT Narrative 04/23/2025 9:47 PM EDT [place] [address] Magnetic Resonance Report Signed Patient: Azra Cast MR#: [id number] : 1975 Acct:[id number] Age/Sex: 49 / F ADM Date: 04/20/25 Loc: HO.MRI Attending Dr: Aaron Pringle MD Ordering Physician: Aaron Pringle MD Date of Service: 04/20/25 Procedure(s): MR breast BI wo/w con Accession Number(s): [id number] cc: Shereen Latham MD; Margaret Holman SLASHER-C; [place] MD; Aaron Pringle MD EXAMINATION: [...] 04/23/25 2145 DD/ 1220 TD/TT: 04/20/25 1400 Cyanide Pot Tender: Procedure Note Donotuseinterpreter, Image - 04/23/2025 [place] [address] Magnetic Resonance Report Signed Patient: Maged Cast#: [id number] : 1975Acct:[id number] Age/Sex: 49 / FADM Date: 04/20/25 Loc: HO.MRI Attending Dr: Aaron Pringle MD Ordering Physician: Aaron Pringle MD Date of Service: 04/20/25 Procedure(s): MR breast BI wo/w con Accession Number(s): [id number] cc: Shereen Latham MD; Margaret Holman SLASHER-C; Li Grande MD;Aaron Pringle MD EXAMINATION: MR [...] 04/23/25 2145 DD/ 1220 TD/TT: 04/20/25 1400 Cyanide Pot Tender: [facility] External Provider IMG MRI PROCEDURES Edited Result - Final * D Dimer High Sensitivity (04/19/2025 3:05 PM EDT) D Dimer High Sensitivity <150 NG/ML [facility] Comment:D-DIMER HS REFERENCE RANGENote: Our [...] ORDERAB LES Final Result Performing Organization Address [facility] de Phone Number [facility] [address] [place] [phone] * Sjogren's Antibodies (SS-A,SS-B) (04/19/2025 3:05 PM EDT) Sjogren's Antibody (SS-A) <1.0 NEG <1.0 NEG [facility] Sjogren's Antibody (SS-B) <1.0 NEG <1.0 NEG [facility] Comment:THIS TEST WAS PERFOR MED AT:[employer] [place] [phone] BRINK MD 04/19/2025 3:05 PM EDT 04/19/2025 3:05 PM EDT Generic External Data Provider LAB BLOOD ORDERAB LES Final Result Performing Organization Address [facility]/ZIP Co de Phone Number [facility] [address] [place] [phone] * Cyclic Citrullinated Peptide (CCP) Antibody (IgG) (04/19/2025 3:05 PM EDT) Pathologist [facility] Cyclic Citrullinated Peptide <16 UNITS [facility] Comment:Reference RangeNegat dasia: <20Weak Positive: 20-39Moderate Positive: 40-59Strong Positive: >59THIS TEST WAS PERFORMED AT:[employer] [address] [id number] BRINK MD 04/19/2025 3:05 PM EDT 04/19/2025 3:05 PM EDT us Generic External Data Provider LAB BLOOD ORDERAB LES Final Result Performing Organization Address [facility]/ZIP Co de Phone Number [facility] [address] [place] [phone] [phone] * SCL-70 Antibody (04/19/2025 3:05 PM EDT) Pathologist [facility] SCL-70 Antibody <1.0 NEG <1.0 NEG AI [facility] Comment:THIS TEST WAS PERFOR MED AT:[employer] [address] [id number] BRINK MD 04/19/2025 3:05 PM EDT 04/19/2025 3:05 PM EDT us Generic External Data Provider LAB BLOOD ORDERAB LES Final Result Performing Organization Address City/[facility]/ZIP Co de Phone Number [facility] [address] [place] [phone] * DNA (ds) Antibody (04/19/2025 3:05 PM EDT) Pathologist [facility] Anti DNA DS Antibody <1 IU/mL [facility] Comment:IU/mL Interpretation < or = 4 Negative 5-9 Indeterminate > or = 10 PositiveTHIS TEST WAS PERFORMED AT:[employer] [address] [phone] BRINK MD 04/19/2025 3:05 PM EDT 04/19/2025 3:05 PM EDT Generic External Data Provider LAB BLOOD ORDERAB LES Final Result Performing Organization Address [facility] Co de Phone Number [facility] [address] [place] [phone] * Rheumatoid Factor (04/19/2025 3:05 PM EDT) Rheumatoid Factor <13.0 <15.0 IU/mL [facility] 04/19/2025 3:05 PM EDT 04/19/2025 3:05 PM EDT Generic External Data Provider LAB BLOOD ORDERAB LES Final Result Performing Organization Address [facility] de Phone Number [facility] [address] [place] [phone] * (ABNORMAL) MONTY Screen,IFA, with Reflex to Titer and Pattern (04/19/2025 3:05 PM EDT) Pathologist [facility] Anti Nuclear Antibody Screen POSITIVE (A) NEGATIVE [facility] Comment:MONTY IFA is a first l ine screen for detecting thepresence of up to approximately 150 autoantibodies invarious autoimmune diseases. A positive MONTY IFA resultis suggestive of autoimmune disease and reflexes totiter and pattern. Further laboratory testing may beconsidered if clinically indicated.For additional information, please refer tohttp://education.ServiceRelated.Likewise Software/faq/LEU089(This link is being provided for informational/educational purposes only.) MONTY Titer 1:80(A) titer [facility] Comment:A low level MONTY tite r may be present in pre-clinicalautoimmune diseases and normal individuals. Reference Range <1:40 Negative 1:40-1:80 Low Antibody Level >1:80 Elevated Antibody Level MONTY Pattern (A) [facility] Comment:Cytoplasmic, Fibrill ar Linear Abnormal Flag: AThis pattern is characterized by decorated cytoskeletalfibers, sometimes with small, discontinuous granulardeposits. Typical staining show striated actin cablesspanning the long axis of the cells (e.g., anti-actin,engo-iml-mayozs myosin). Pattern is associated withmixed connective tissue disease (MCTD), chronic activehepatitis, liver cirrhosis, myasthenia gravis, Crohn'sdisease, primary biliary cholangitis (PBC), long-termhemodialysis, and rarely in systemic autoimmunerheumatic diseases (SARD).AC-15: Fibrillar LinearInternational Consensus on MONTY Patterns(https://doi.org/10.1515/xqtv-8419-7482)THIS TEST WAS PERFORMED AT:[employer] [place] [phone] BRINK MD MONTY TITER 2 (REF LAB) [facility] MONTY Pattern 2 [facility] MONTY TITER 3 [facility] MONTY PATTERN 3 [facility] 04/19/2025 3:05 PM EDT 04/19/2025 3:05 PM EDT us Generic External Data Provider LAB BLOOD ORDERAB LES Final Result Performing Organization Address [facility]/ZIP Co de Phone Number [facility] [address] [place] [phone] * Uric acid (04/19/2025 3:05 PM EDT) Uric Acid 5.4 2.4 - 5.7 mg/dL [facility] 04/19/2025 3:05 PM EDT 04/19/2025 3:05 PM EDT us Shereen Latham MD LAB BLOOD ORDERABLES Final Result Performing Organization Address [facility] Co de Phone Number [facility] [address] [place] [phone] * (ABNORMAL) Lipid Panel, Standard (12/29/2024 10:53 AM EST) Triglycerides 192(H) <150 mg/dL [facility] Comment:Desirable Triglyceri de: less than 150 mg/dLBorderline High Triglyceride 150-199 mg/dLHigh Triglyceride: 200-499 mg/dLVery High Triglyceride: greater than or equal to 5OO mg/dL Cholesterol 197 <200 mg/dL [facility] Comment:Desirable Cholestero l: less than 200 mg/dLBorderline High Cholesterol: 200-239 mg/dLHigh Cholesterol: greater than 239 mg/dL LDL Cholesterol Calculated 111(H) <100 mg/dL [facility] Comment:Desirable LDL: less than 100 mg/dLNear Optimal/Above Optimal LDL: 110- 129 mg/dLBorderline High LDL: 130-159 mg/dLHigh LDL: 160-189 mg/dLVery High LDL: greater than or equal to 190 mg/dL HDL Cholesterol 48 >40 mg/dL [facility] Comment:Desirable HDL: great er than 40 mg/dL Note: This HDL assay may give artificially low results in patients with liver disease. Blood Venous blood specimen / Unknown 12/29/2024 10:53 AM EST 12/29/2024 1:06 PM EST Shereen Latham MD LAB BLOOD ORDERABLES Final Result [facility] [address] [place] [phone] * (ABNORMAL) Colonoscopy (07/11/2024) Colonoscopy Abnormal( A) Normal Comment:Herberth Stokes MD tubular adenoma x 3 Herberth Stokes MD HEALTH MAINTENANCE Final Result * Hepatitis Panel, General (06/16/2024 8:22 AM EDT) Hepatitis A IgM Nonreactive Nonreactive [facility] Comment:IgM antibodies to VIRAMONTES V not detected; does not exclude earlyacute or recovered HAV infection. ~Hepatitis B Surface Antibody REACTIVE Nonreactive [facility] Comment:REACTIVE: > 11.99 mI U/mL Hepatitis B Core Antibody Nonreactive Nonreactive [facility] Hepatitis C Antibody Nonreactive Nonreactive [facility] Comment:Antibodies to HCV no t detected; does not exclude early acuteHCV infection. Hepatitis B Surface Ag Negative Negative [facility] Blood Venous blood specimen / Unknown 06/16/2024 8:22 AM EDT 06/16/2024 11:18 AM EDT Shereen Latham MD LAB BLOOD ORDERABLES Final Result Performing Organization Address City/[facility]/ZIP Co de Phone Number [facility] [address] [place] [phone] * HIV-1/2 Antigen and Antibodies, Fourth Generation, with Reflexes (02/24/2024 8:47 AM EDT) Pathologist [facility] HIV AB/AG Nonreactive Nonreactive [facility] Comment:HIV-1 p24 Ag and/or HIV-1/HIV-2 Ab not detected.A test result that is nonreactive does not exclude thepossibility of exposure to or infection with HIV-1 and/orHIV-2. Nonreactive results in this assay for individualswith prior exposure to HIV-1 and/or HIV-2 may be due toantigen and antibody levels that are below the limit ofdetection of this assay.The [employer] HIV Ag/Ab Combo assay result andsupplemental assay results should be interpreted inconjunction with the patient's clinical presentation,history and other laboratory results. If the results areinconsistent with clinical evidence, additional testing issuggested to confirm the result. Blood Venous blood specimen / Unknown 02/24/2024 8:47 AM EDT 02/24/2024 11:22 AM EDT us Naomi ORDAZ LAB BLOOD ORDERABLES Final Resul t Performing Organization Address [facility]/ZIP Co de Phone Number [facility] [address] [place] [phone] * (ABNORMAL) Cologuard?? colon cancer screening (08/27/2023 11:24 AM EDT) Cologuard Result Positive( A) Negative 09/05/2023 10:16 PM EDT [employer] (CLIA #:[id number]) Comment: POSITIVE TEST RESULT. A positive Cologuard [...] Menendez et al, N Engl J Med 2014;370(14):3423-8248.) Cologuard may produce a false negative or false positive result (no colorectal cancer or precancerous polyp present at colonoscopy follow up). A negative Cologuard test result does not guarantee the absence of CRC or advanced adenoma (pre-cancer). The current Cologuard screening interval is every 3 years. ([place] Cancer Society and U.S. Multi-Society Task Force). Cologuard performance data in a 10,000 patient pivotal study using colonoscopy as the reference method can be accessed at the following location: www.[facility]/results. Additional description of the Cologuard test process, warnings and precautions can be found at www.cologuard.com. Stool specimen (specimen) 08/27/2023 11:24 AM EDT 08/29/2023 6:48 AM EDT us Shereen Latham MD LAB MOLECULAR DIAGNOSTICS ORDERABLES Final Result Performing Organization Address [facility] de Phone Number [employer] (CLIA #:[id number]) [address] [place] [address], * HPV mRNA E6/E7 (08/12/2018 10:57 AM EDT) HPV mRNA E6/E7 Not Detected NOT DETECTED [facility] Comment: This test was performed using the APTIMA(R) HPV Assay ([employer] This assay detects E6/E7 viral messenger RNA (mRNA) from 14 high-risk HPV types (16,18,31,33,35,39,45,51, 52,56,58,59,66,68). For additional information please refer to: http://education.[employer]/faq/NNS998b6 (This link is being provided for informational/ educational purposes only.) The analytical performance characteristics of this assay have been determined by [employer] [place], [place]. The modifications have not been cleared or approved by the FDA. This assay has been validated pursuant to the CLIA regulations and is used for clinical purposes. Test Performed by [facility], [employer] [facility], [address] [place] [address] Dwaine Morelos M.D., Ph.D., Director of Laboratories , CLIA [id number] Please note: Effective 07/14/2016, HPV testing will be performed using [employer]'s APTIMA test which targets mRNA. Detecting mRNA instead of DNA, as in older methods, offers significant improvements in specificity. 08/12/2018 10:5 7 AM EDT us Shereen Latham MD HISTORICAL/NON ORDERABLE L ABS Final Result Performing Organization Address [facility] Co de Phone Number [facility] [address] from Last 3 Months or Most Recently Relevant to Health Maintenance [place] AD[place] D[place] Advance Directives Documents on File Type Date Recorded Patient Cap Maker Expl anation Advance Directives and Living Will 07/05/2024 11:59 AM Health Care Proxy Care Teams Hvac Engineering Technician Relationship Specialty Start Date End Date Noa, MD Shereen [address] [place] [address] PCP - General Family Medicine 11/02/18 Sury Benitez [address] [place] [address] [address] Pulmonary Disease 09/27/24 Nirali Madrid OD [address] [place] [address] Optometry 10/27/24 Li Grande MD [address] [place] [address] Hematology and Oncology 10/27/24 Anselmo Gates MD [address] [place] [address] Orthopaedic Surgery 10/27/24 Margaret Holman [address] [facility] 3rd [place] [address] Cardiology 10/27/24 Herberth Stokes MD [address] [facility] 3rd [place] [address] Gastroenterology 10/27/24 Hilton Palacios MD [address] [place] [address], [address] [place] [address] Neurology 02/06/25 Aaron Pringle MD [address] [place] [address] 3rd Floor [place] [address] General Surgery 03/07/25 Pily Delaney Marine Operations CoordinatorMaterials Assistant 07/22/24 Elie BRASHER [facility] 12/29/24
--- OUTSIDE RECORDS SUMMARY | 2025-07-11 13:07 | XMS_ITS | Encounter Summary ---
Author Organization [employer] Address [address] [facility] 7t [place] [address] Care Team Providers Care Pure Culture Operator Name Role Phone Shereen Latham MD Primary Care Provider [phone] Nupur Bullock PharmD Unavailable Sury Benitez Unavailable [phone] Julius, Nirali OD Unavailable Li Grande MD Unavailable [phone] Anselmo Gates MD Unavailable Margaret Holman Unavailable Herberth Stokes MD Unavailable [phone] Hilton Palacios MD Unavailable [phone] Aaron Pringle MD Unavailable [phone] Lori Batista Unavailable [phone] Neelima Raygoza Unavailable Encounter Details Date Type Department Care Team (Late st Contact Info) Description 10/11/2024 Telephone [facility] [address] [place], [place] [phone] Shereen Latham MD [address] [place], [place] [phone] Social History Tobacco Use Types Packs/Day Years [...] Description 08/07/2025 1:30 PM EDT Office Visit [facility]ULT [facility] [address] [place] [address] Paz-Connor, Isa, DDS [address] [place] [address] 09/13/2025 3:15 PM EST Office Visit [facility] [address] [place] [address] Shereen Latham MD [address] [place] [address] documented as of this encounter Visit Diagnoses Not on filedocumented in this encounter Additional Health Concerns Assessment Noted Time PHQ-9 Depression Total Score: 13 024 4:53 PM EDT documented as of this encounter Care Teams Pure Culture Operator Relationship Specialty Start Date End Date Shereen Latham MD [address] [place] [address] PCP - General Family Medicine 11/02/18 Nupur Bullock, CharleneD [address] [place] [address] Pharmacist Internal Medicine 08/09/24 05/15/25 Sury Benitez [address] [place] [address] Dr [facility] [address] [place] [address] Pulmonary Disease 09/27/24 Nirali Madrid OD [address] [place] [address] Optometry 10/27/24 Li Grande MD 575 [place] [address] Hematology and Oncology 10/27/24 Anselmo Gates MD [address] [facility] [address] [place] [address] Orthopaedic Surgery 10/27/24 Margaret Holman [address] 3rd [place] [address] Cardiology 10/27/24 Herberth Stokes MD [address] [facility] [place] [address] Gastroenterology 10/27/24 Hilton Palacios MD [address] [place] [address], [address] [place] [address] Neurology 02/06/25 Aaron Pringle MD [address] [place] [address] 3rd [facility] [place] [address] General Surgery 03/07/25 Lori Batista Registered Nurse 06/15/25 06/15/25 Neelima Raygoza 06/15/25 06/16/25 Pily Delaney Independent DistributorMachine Wedger 07/22/24 Elie Vicky [facility] Psychology 12/29/24 documented as of this encounter
--- OUTSIDE RECORDS SUMMARY | 2025-07-11 13:07 | XMS_ITS | Encounter Summary ---
Author Organization [employer] Address [address] [facility] 7t [place] [address] Care Team Providers Care Middle School English Teacher Name Role Phone Quitman, Shereen NOLASCO Primary Care Provider [phone] Nupur Bullock PharmD Unavailable Sury Benitez Unavailable [phone] Julius, Nirali OD Unavailable Li Grande MD Unavailable [phone] Anselmo Gates MD Unavailable Margaret Holman Unavailable Herberth Stokes MD Unavailable [phone] Hilton Palacios MD Unavailable [phone] Aaron Pringle MD Unavailable [phone] Lori Batista Unavailable [phone] Neelima Raygoza Unavailable Encounter Details Date Type Department Care Team (Latest Contact Info) Description 07/06/2019 Abstract [facility] CONVERSIONS Dental, Provider, DDS Social History [...] Description 08/07/2025 1:30 PM EDT Office Visit [facility] ADULT DENTAL [address] [place] [address] Paz-Connor, Isa, DDS [address] [place] [address] 09/13/2025 3:15 PM EST Office Visit [facility] [address] [place] [address] Shereen Latham MD [address] [place] [address] documented as of this encounter Visit Diagnoses Not on filedocumented in this encounter Care Teams Middle School English Teacher Relationship Specialty Start Date End Date Shereen Latham MD [address] [place] [address] PCP - General Family Medicine 11/02/18 Nupur Bullock, CharleneD [address] [place] [address] Pharmacist Internal Medicine 08/09/24 05/15/25 Sury Benitez [address] [place] [address] Dr [facility] 103 [place] [address] Pulmonary Disease 09/27/24 Nirali Madrid OD [address] [place] [address] Optometry 10/27/24 Li Grande MD [address] [place] [address] Hematology and Oncology 10/27/24 Anselmo Gates MD [address] [place] [address] Orthopaedic Surgery 10/27/24 Margaret Holman [address] 3rd [place] [address] Cardiology 10/27/24 Herberth Stokes MD [address] 3rd [place] [address] Gastroenterology 10/27/24 Hilton Palacios MD [address] [facility], [address] [place] [address] Neurology 02/06/25 Aaron Pringle MD [address]rd [place] [address] General Surgery 03/07/25 Lori Batista Registered Nurse 06/15/25 06/15/25 Neelima Raygoza 06/15/25 06/16/25 Pily Delaney International Marketing SpecialistPhysician General Practice 07/22/24 Elie Vicky [facility] 12/29/24 documented as of this encounter
--- OUTSIDE RECORDS SUMMARY | 2025-07-11 13:07 | XMS_ITS | Encounter Summary ---
Author Organization [employer] Address [address] [place] [address] 7 [place] [address] Care Team Providers Care Animal Nutrition Teacher Name Role Phone Shereen Latham MD Primary Care Provider [phone] Nupur Bullock PharmD Unavailable Sury Benitez Unavailable [phone] Julius, Nirali OD Unavailable Li Grande MD Unavailable [phone] Anselmo Gates MD Unavailable Margaret Holman Unavailable Herberth Stokes MD Unavailable [phone] Hilton Palacios MD Unavailable Aaron Pringle MD Unavailable [phone] Lori Batista Unavailable [phone] Neelima Raygoza Unavailable Reason for Visit * Reason Onset Date Comments ER Follow-up 12/07/2024 Encounter Details Date Type Department Care Team (Late st Contact Info) Description 12/07/[address] [facility] [address] [place], [place] [phone] Shereen Latham MD 230 [place] [address] ER Follow-up Social History Tobacco [...] the past 12 months, has t he [employer] gas, oil or water company threatened to [...] ED visit on : Date: 12/06/24 Hospital: [facility] Seen for: Flu Patient advised will forward to team nurse for follow up documented in this encounter Plan of Treatment Upcoming Encounters Date Type Department Care Team (Late st Contact Info) Description 08/07/2025 1:30 PM EDT Office Visit [facility] [address] [place] [address] Paz-Connor, Isa, DDS [address] [place] [address] 09/13/2025 3:15 PM EST Office Visit [facility] [address] [place] [address] Shereen Latham MD [address] [place] [address] documented as of this encounter Visit Diagnoses Not on filedocumented in this encounter Additional Health Concerns Assessment Noted Time PHQ-9 Depression Total Score: 13 024 4:53 PM EDT documented as of this encounter Care Teams Animal Nutrition Teacher Relationship Specialty Start Date End Date Shereen Latham MD [address] [place] [address] PCP - General Family Medicine 11/02/18 Nupur Bullock, CharleneD [address] [place] [address] Pharmacist Internal Medicine 08/09/24 05/15/25 Sury Benitez [address] [place] [address] [address] [place] [address] Pulmonary Disease 09/27/24 Nirali Madrid OD [address] [place] [address] Optometry 10/27/24 Li Grande MD [address] [place] [address] Hematology and Oncology 10/27/24 Anselmo Gates MD [address] [place] [address] Orthopaedic Surgery 10/27/24 Margaret Holman [address] [facility] 3rd [place] [address] Cardiology 10/27/24 Herberth Stokes MD [address] [facility] 3rd [place] [address] Gastroenterology 10/27/24 Hilton Palacios MD [address] [facility], [address] [place] [address] Neurology 02/06/25 Aaron Pringle MD 11 [facility] 3rd [place] [address] General Surgery 03/07/25 Lori Batista Registered Nurse 06/15/25 06/15/25 Neelima Raygoza 06/15/25 06/16/25 Pily Delaney Band Saw Operator Cake CuttingMedical Cash Poster 07/22/24 Elie Vicky [facility] Psychology 12/29/24 documented as of this encounter
--- OUTSIDE RECORDS SUMMARY | 2025-07-11 13:07 | XMS_ITS | Encounter Summary ---
Author Organization [employer] Address 75 [facility] 7t [place] [address] Care Team Providers Care Mortgage Collector Name Role Phone Shereen Latham MD Primary Care Provider [phone] Nupur Bullock PharmD Unavailable Sury Benitez Unavailable [phone] Julius, Nirali OD Unavailable Li Grande MD Unavailable Anselmo Gates MD Unavailable Margaret Holman Unavailable Herberth Stokes MD Unavailable [phone] Hilton Palacios MD Unavailable [phone] Aaron Pringle MD Unavailable [phone] Lori Batista Unavailable [phone] Neelima Raygoza Unavailable Encounter Details Date Type Department Care Team (Late st Contact Info) Description 07/27/2023 Orders Only [facility] MEDICINE 230 [place], [place] [phone] Shereen Latham MD 230 [place], [place] [phone] Hypomagnesemia Social History Tobacco Use Types Packs/Day [...] Description 08/07/2025 1:30 PM EDT Office Visit [facility] ADULT DENTAL [address] [place] [address] Paz-ConnorIsa abarca, DDS [address] [place] [address] 09/13/2025 3:15 PM EST Office Visit [facility] MEDICINE [address] [place] [address] Shereen Latham MD [address] [place] [address] documented as of this encounter Visit Diagnoses Diagnosis Hypomagnesemia Disorders of magnesium metabolism documented in this encounter Additional Health Concerns Assessment Noted Time PHQ-9 Depression Total Score: 10 023 10:27 AM EDT documented as of this encounter Care Teams Mortgage Collector Relationship Specialty Start Date End Date Shereen Latham MD [address] [place] [address] PCP - General Family Medicine 11/02/18 Nupur Bullock, CharleneD [address] [place] [address] Pharmacist Internal Medicine 08/09/24 05/15/25 Sury Benitez [address] [place] [address] [address] [place] [address] Pulmonary Disease 09/27/24 Julius, Nirali, OD 267 [place] [address] Optometry 10/27/24 Li Grande MD 575 [place] [address] Hematology and Oncology 10/27/24 Anselmo Gates MD [address] [place] [address] Orthopaedic Surgery 10/27/24 Margaret Holman [address] [place] [address] Cardiology 10/27/24 Herberth Stokes MD 11 [facility] 3rd [place] [address] Gastroenterology 10/27/24 Hilton Palacios MD 15 [facility], [address] [place] [address] Neurology 02/06/25 Aaron Pringle MD 11 [facility] [address] [place] [address] General Surgery 03/07/25 Lori Batista Registered Nurse 06/15/25 06/15/25 Neelima Raygoza 06/15/25 06/16/25 Pily Delaney Greeting Card EditorWhite Mixing Operator 07/22/24 Elie Vicky [facility] Psychology 12/29/24 documented as of this encounter
--- OUTSIDE RECORDS SUMMARY | 2025-07-11 13:07 | XMS_ITS | Encounter Summary ---
Author Organization [employer] Address [address] [place] [address] 7t [place] [address] Care Team Providers Care Research Dietitian Name Role Phone Shereen Latham MD Primary Care Provider [phone] Nupur Bullock PharmD Unavailable Sury Benitez Unavailable [phone] JuliusNirali castellanos OD Unavailable Li Grande MD Unavailable [phone] Anselmo Gates MD Unavailable Margaret Holman Unavailable Herberth Stokes MD Unavailable [phone] Hilton Palacios MD Unavailable [phone] Aaron Pringle MD Unavailable [phone] Lori Batista Unavailable [phone] Neelima Raygoza Unavailable Reason for Visit * Reason Onset Date Comments Medication Question 08/25/2024 Encounter Details Date Type Department Care Team ([facility] st Contact Info) Description 08/25/2024 Telephone [facility] MEDICINE 230 [place], [place] [phone] Shereen Latham MD 230 [place], [place] [phone] Medication Question Social History Tobacco Use Types [...] the past 12 months, has t he [employer], gas, oil or water [employer] threatened to shut off services in your [...] any questions you can contact pt at [phone]. documented in this encounter Plan of Treatment Upcoming Encounters Date Type Department Care Team (Late st Contact Info) Description 08/07/2025 1:30 PM EDT Office Visit [facility] ADULT DENTAL [address] [place] [address] Brandi-Isa Connor, DDS 230 [place] [address] 09/13/2025 3:15 PM EST Office Visit [facility] MEDICINE [address] [place] [address] Shereen Latham MD [address] [place] [address] documented as of this encounter Visit Diagnoses Not on filedocumented in this encounter Additional Health Concerns Assessment Noted Time PHQ-9 Depression Total Score: 13 024 4:53 PM EDT documented as of this encounter Care Teams Research Dietitian Relationship Specialty Start Date End Date Shereen Latham MD [address] [place] [address] PCP - General Family Medicine 11/02/18 Nupur Bullock, CharleneD [address] [place] [address] Pharmacist Internal Medicine 08/09/24 05/15/25 Sury Benitez [address] [place] [address] [place] [address] Pulmonary Disease 09/27/24 Nirali Madrid OD [address] [place] [address] Optometry 10/27/24 Li Grande MD 575 [place] [address] Hematology and Oncology 10/27/24 Anselmo Gates MD [address] [place] [address] Orthopaedic Surgery 10/27/24 Margaret Holman [address] 3rd [place] [address] Cardiology 10/27/24 Herberth Stokes MD 11 [facility] 3rd [place] [address] Gastroenterology 10/27/24 Hilton Palacios MD 15 [facility], [address] [place] [address] Neurology 02/06/25 Aaron Pringle MD 11 [facility] 3rd [place] [address] General Surgery 03/07/25 Lori Batista Registered Nurse 06/15/25 06/15/25 Neelima Raygoza 06/15/25 06/16/25 Pily Delaney Ware CarrierSheet Metal Duct Installer 07/22/24 Elie Vicky [facility] Psychology 12/29/24 documented as of this encounter
--- OUTSIDE RECORDS SUMMARY | 2025-07-11 13:07 | XMS_ITS | Encounter Summary ---
Author Organization [employer] Address [address] [place] [address] 7 [place] [address] Care Team Providers Care Banking Consultant Name Role Phone Shereen Latham MD Primary Care Provider [phone] Nupur Bullock PharmD Unavailable Sury Benitez Unavailable [phone] Julius, Nirali OD Unavailable Li Grande MD Unavailable [phone] Anselmo Gates MD Unavailable Margaret Holman Unavailable Herberth Stokes MD Unavailable [phone] Hilton Palacios MD Unavailable Aaron Pringle MD Unavailable [phone] Lori Batista Unavailable [phone] Neelima Raygoza Unavailable Reason for Visit * Reason Onset Date Comments Nurse Triage 01/25/2024 Referral 01/25/2024 Encounter Details Date Type Department Care Team (Late st Contact Info) Description 01/25/2024 Telephone [facility] MEDICINE 230 [place], [place] [phone] Shereen Latham MD 230 [place], [place] [phone] Nurse Triage; Referral Social History Tobacco Use [...] vary. Pt wants to be referred to [address] [address] [facility] will send to team to review [...] Office Visit [facility] ADULT DENTAL [address] [place] [address] Rj Isa, DDS 230 [place] [address] 09/13/2025 3:15 PM EST Office Visit [facility] MEDICINE 230 [place] [address] Shereen Latham MD [address] [place] [address] documented as of this encounter Visit Diagnoses Not on filedocumented in this encounter Additional Health Concerns Assessment Noted Time PHQ-9 Depression Total Score: 21 023 10:42 AM EST documented as of this encounter Care Teams Banking Consultant Relationship Specialty Start Date End Date Shereen Latham MD 230 [place] [address] PCP - General Family Medicine 11/02/18 Nupur Bullock PharmD [address] [place] [address] Pharmacist Internal Medicine 08/09/24 05/15/25 Sury Benitez [address] [place] [address] Pulmonary Disease 09/27/24 Nirali Madrid OD [address] [place] [address] Optometry 10/27/24 Li Grande MD [address] [place] [address] Hematology and Oncology 10/27/24 Anselmo Gates MD [address] [place] [address] Orthopaedic Surgery 10/27/24 Margaret Holman [address] 3rd Floor [place] [address] Cardiology 10/27/24 Herberth Stokes MD [address]rd [place] [address] Gastroenterology 10/27/24 Hilton Palacios MD [address] [facility] [address] [place] [address] Neurology 02/06/25 Araon Pringle MD [address]rd [place] [address] General Surgery 03/07/25 Lori Batista Registered Nurse 06/15/25 06/15/25 Neelima Raygoza 06/15/25 06/16/25 Pily Delaney Medical Billing AssociateSail Repair Person 07/22/24 Elie Vicky [facility] 12/29/24 documented as of this encounter
--- OUTSIDE RECORDS SUMMARY | 2025-07-11 13:07 | XMS_ITS | Encounter Summary ---
Author Organization [employer] Address [address] [place] [address] 7 [place] [address] Care Team Providers Care Cellophane Bath Mixer Name Role Phone Shereen Latham MD Primary Care Provider [phone] Nupur Bullock PharmD Unavailable Sury Benitez Unavailable [phone] Julius, Nirali OD Unavailable Li Grande MD Unavailable [phone] Anselmo Gates MD Unavailable Margaret Holman Unavailable Herberth Stokes MD Unavailable [phone] Hilton Palacios MD Unavailable Aaron Pringle MD Unavailable [phone] Lori Batista Unavailable [phone] Neelima Raygoza Unavailable Reason for Visit * Reason Onset Date Comments Nurse Triage 02/13/2025 Encounter Details Date Type Department Care Team (Late st Contact Info) Description 02/13/2025 Telephone [facility] MEDICINE 230 [place], [place] [phone] Shereen Latham MD 230 [place], [place] [phone] Nurse Triage Social History Tobacco Use Types [...] 1:30 PM EDT Office Visit [facility] ADULT DENTAL 230 [place] [address] Isa De La Rosa, DDS 230 [place] [address] 09/13/2025 3:15 PM EST Office Visit [facility] MEDICINE 230 [place] [address] Shereen Latham MD 230 [place] [address] documented as of this encounter Visit Diagnoses Not on filedocumented in this encounter Additional Health Concerns Assessment Noted Time PHQ-9 Depression Total Score: 22 12/29/ 025 10:17 AM EST documented as of this encounter Care Teams Cellophane Bath Mixer Relationship Specialty Start Date End Date Shereen Latham MD 230 [place] [address] PCP - General Family Medicine 11/02/18 Nupur Bullock, PharmD [address] [place] [address] Pharmacist Internal Medicine 08/09/24 05/15/25 Sury Benitez [address] [place] [address] [facility] 103 [place] [address] Pulmonary Disease 09/27/24 Nirali Madrid OD [address] [place] [address] Optometry 10/27/24 Li Grande MD [address] [place] [address] Hematology and Oncology 10/27/24 Anselmo Gates MD [address] [facility] [place] [address] Orthopaedic Surgery 10/27/24 Margaret Holman 11 [facility] 3rd [place] [address] Cardiology 10/27/24 Herberth Stokes MD 11 [facility] 3rd [place] [address] Gastroenterology 10/27/24 Hilton Palacios MD [address] [place] [address] DR, [address] [place] [address] Neurology 02/06/25 Aaron Pringle MD [address] [place] [address] Drive 3rd Floor [place] [address] General Surgery 03/07/25 Lori Batista Registered Nurse 06/15/25 06/15/25 Neelima Raygoza 06/15/25 06/16/25 Pily Delaney Multiple Slide OperatorClaims Auditor 07/22/24 Elie Vicky [facility] Psychology 12/29/24 documented as of this encounter
--- OUTSIDE RECORDS SUMMARY | 2025-07-11 13:07 | XMS_ITS | Encounter Summary ---
Author Organization [employer] Address 75 [facility] 7t [place] [address] Care Team Providers Care Front End Driver Name Role Phone Shereen Latham MD Primary Care Provider [phone] Nupur Bullock PharmD Unavailable Sury Benitez Unavailable Julius, Nirali OD Unavailable Li Grande MD Unavailable [phone] Anselmo Gates MD Unavailable Margaret Holman Unavailable Herberth Stokes MD Unavailable Hilton Palacios MD Unavailable Aaron Pringle MD Unavailable [phone] Lori Batista Unavailable [phone] Neelima Raygoza Unavailable Encounter Details Date Type Department Care Team (Late st Contact Info) Description 11/16/2022 Abstract [facility] MEDICINE 230 [place], [place] [phone] Shereen Latham MD 230 [place], [place] [phone] Social History Tobacco Use Types Packs/Day Years [...] 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 Per Dr. Krish Loomis's note from [facility] MOBILE DEVICE DEVELOPER, pt was due for repeat colposcopy in [...] Problem(s): Hyperaldosteronism (CMS/HCC) (Resolved 07/29/2023) Seen by [facility] Endocrinology 04/03/2022. Initially seen 12/2021 for hyperaldosteronism. Labs [facility] 10/2021 aldosterone 8, plasma renin 0.11, aldosterone/renin 72.7. She was likely on spironolactone and lisinopril at time of labs. Advise no spironolactone for 6 weeks and recheck renin aldosterone levels with renal panel and magnesium in rn home care. 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 -S/p RIGHT mastectomy with sentinel node bx by Dr. [facility] -Adriamycin/Cytoxan based chemotherapy started Oct, completed [...] Description 08/07/2025 1:30 PM EDT Office Visit [facility] ADULT DENTAL 230 [place] [address] Paz-Connor, Isa, DDS 230 [place] [address] 09/13/2025 3:15 PM EST Office Visit [facility] MEDICINE 230 [place] [address] Shereen Latham MD [address] [place] [address] documented as of this encounter Visit Diagnoses Not on filedocumented in this encounter Care Teams Front End Driver Relationship Specialty Start Date End Date Shereen Latham MD 230 [place] [address] PCP - General Family Medicine 11/02/18 Nupur Bullock PharmD 230 [place] [address] Pharmacist Internal Medicine 08/09/24 05/15/25 Sury Benitez [address] [place] [address] [address] [place] [address] Pulmonary Disease 09/27/24 Nirali Madrid, SUSAN 267 [place] [address] Optometry 10/27/24 Li Grande MD 575 [place] [address] Hematology and Oncology 10/27/24 Anselmo Gates MD [address] [place] [address] Orthopaedic Surgery 10/27/24 Margaret Holman [address] 3rd [place] [address] Cardiology 10/27/24 Herberth Stokes MD [address] [facility] [address] 3rd [place] [address] Gastroenterology 10/27/24 Hilton Palacios MD 15 [facility], [address] [place] [address] Neurology 02/06/25 Aaron Pringle MD [address] [place] [address] General Surgery 03/07/25 Lori Batista Registered Nurse 06/15/25 06/15/25 Neelima Raygoza 06/15/25 06/16/25 Pily [place] LatexerSurvey Engineer 07/22/24 Elie BRASHER [facility] Psychology 12/29/24 documented as of this encounter
--- OUTSIDE RECORDS SUMMARY | 2025-07-11 13:07 | XMS_ITS | Encounter Summary ---
Author Organization [employer] Address [address] [facility] 7t [place] [address] Care Team Providers Care Stock Mover Name Role Phone [place], Shereen NOLASCO Primary Care Provider [phone] Sury Benitez Unavailable [phone] Nirali Madrid OD Unavailable Li Grande MD Unavailable [phone] Anselmo Gates MD Unavailable Margaret Holman Unavailable Herberth Stokes MD Unavailable [phone] Hilton Palacios MD Unavailable Aaron Pringle MD Unavailable [phone] Encounter Details Date Type Department Care Team (Late st Contact Info) Description 06/28/2025 Orders Only [facility] External Provider, [facility] Bilateral malignant neoplasm of breast in [...] Description 08/07/2025 1:30 PM EDT Office Visit [facility] ADULT DENTAL [address] [place] [address] Isa De La Rosa DDS [address] [place] [address] 09/13/2025 3:15 PM EST Office Visit [facility] MEDICINE [address] [place], [place] [phone] Shereen Latham MD [address] [place] [address] documented as of this encounter Procedures Procedure Name Priority Date/Time Associated Diagnosis Comments GROSS AND MICROSCOPIC LEVEL 5 Routine 06/28/2025 10:55 AM EDT BI MM SURGICAL SPECIMEN Routine 06/28/2025 10:13 AM EDT documented in this encounter Results * Gross and Microscopic Level 5 (06/28/2025 10:55 AM EDT) 06/28/2025 10:5 5 AM EDT 06/28/2025 11:08 AM EDT [facility] LABS - 07/05/2025 2:23 PM EDT ----- ------- Name: Azra Cast Age/Sex: 49/F : 1975 Unit#: [id number] Attend Dr: Aaron Pringle MD Re06/28/25 Status: [facility] Location: .[facility] Disch: ----- ------- SPEC : [id number] RECD: 06/28/25 STATUS: CRAIG ANDERSEN NUM: [id number] MAYA: 06/28/25-10[address] [facility] DR: Aaron Pringle MD ENTERED: 06/28/25-1110 SP TYPE: Surgical OTHR DR: Shereen Latham MD ORDERED: Gross Micro L5, ER, SD, IOC, IHC, Add. immunos, IHC ER/SD/Her2N/4, Ki-67, p63, SMM, [id number] Diagnosis Breast, left, lumpectomy: - Invasive ductal [...] from posterior Lymph nodes Number examined: 0 [place] nodes: 0 Axillary nodes: 0 CONTINUED ON NEXT PAGE ----- ------- Name: Azra Cast Age/Sex: 49/F : 1975 Unit#: [id number] Attend Dr: Aaron Pringle MD Re06/28/25 Status: [facility] Location: [facility] Disch: ----- ------- SPEC : [id number] RECD: 06/28/25-110 STATUS: KVNGMelquiades ANDERSEN NUM: [id number] MAYA: 06/28/25-[address]: Aaron Pringle MD ENTERED: 06/28/25-1110 SP TYPE: Surgical OTHR DR: Shereen Latham MD ORDERED: Gross Micro L5, ER, SD, IOC, IHC, Add. immunos, IHC ER/SD/Her2N/4, Ki-67, p63, SMM, [id number] Diagnosis (Continued) Number involved: N/A With macrometastases: N/A With micrometastases: N/A With isolated tumor cells: N/A Extranodal extension: N/A Size of largest met. deposit: N/A Treatment effect Breast: Not identified Lymph nodes: Not identified TNM: pT1b NX Ancillary studies: ER positive, SD positive, HER2 negative (0), low proliferation Clinical [...] Name: Azra Cast Age/Sex: 49/F : 1975 [id number] Unit#: [id number] Attend Dr: Aaron Pringle MD Re06/28/25 Status: [facility] Location: [facility] Disch: ----- ------- SPEC : [id number] RECD: 06/28/25-1107 STATUS: CRAIG ANDERSEN NUM: [id number] MAYA: 06/28/25-[address] [facility] [address]: Aaron Pringle MD ENTERED: 06/28/25-1110 SP TYPE: Surgical OTHR DR: Shereen Latham MD ORDERED: Gross Micro L5, ER, SD, IOC, IHC, Add. immunos, IHC ER/SD/Her2N/4, Ki-67, p63, SMM, [id number] Gross Description (Continued) fatty parenchyma is otherwise unremarkable without additional discrete abnormality. Frozen Foods Manager sections to include entire area of ill-defined [...] Envision+ Dual Link System-HRP. Progesterone receptor: Clone [id number]; [employer] Mach 4 detection system. Her-2/perez immunohistochemistry performed in accordance with ASCO/CAP recommendations (2007) and update (2013). Hercep Test Detection system: Polymer type Scoring criteria: For ER/SD and Her-2/perez: All internal (if present) and external controls react appropriately. CONTINUED ON NEXT PAGE ----- ------- Name: Azra Cast Age/Sex: 49/F : 1975 Unit#: [id number] Attend Dr: Aaron Pringle MD Re06/28/25 Status: [facility] Location: [facility] Disch: ----- ------- SPEC : [id number] RECD: 06/28/25-1107 STATUS: CRAIG ANDERSEN NUM: [id number] MAYA: 06/28/25-[address] [facility] [address]: Aaron Pringle MD ENTERED: 06/28/25 SP TYPE: Surgical OTHR DR: Shereen Latham MD ORDERED: Gross Micro L5, ER, SD, IOC, IHC, Add. immunos, IHC ER/SD/Her2N/4, Ki-67, p63, SMM, [id number] Gross Description (Continued) ER and SD immunostains are scored as Positive (> 10% [...] Arch of Pathol Lab Med, 142, 2018: 6498-8279. Marce KH, Margot ME, et al. Estrogen and Progesterone Receptor Testing in Breast Cancer: ASCO/CAP Guideline Update. Arch of Pathol Lab Med, 144 2020: 545-563. Thanh N, Cristel P, et al. Adjuvant abemaciclib combined with endocrine therapy for high- risk early breast cancer: updated efficacy and Ki-67 analysis from the [facility] study. Jennie Oncol. 2020;32(12):8130-6651. This case was reviewed intradepartmentally; results were communicated to Dr. Pringle on 07/05/2025. Special studies ordered and performed: Immunostains for ER, SD, HER2, Ki 67, p63 and smooth muscle myosin IHC S/NG Disclaimer NOTE: Unless otherwise stated, all tissue is formalin-fixed and paraffin-embedded. Some or all of the immunohistochemical tests reported herein may have been developed and their performance characteristics determined by [facility]. They have not been cleared [...] Azra Cast Age/Sex: 49/F : 1975 Unit#: [id number] Attend Dr: Aaron Pringle MD Re06/28/25 Status: [facility] Location: [facility] Disch: ----- ------- SPEC : [id number] RECD: 06/28/25 STATUS: CRAIG ANDERSEN NUM: [id number] MAYA: 06/28/[address] [facility] [address]: Aaron Pringle MD ENTERED: 06/28/25-1110 SP TYPE: Surgical OTHR DR: Shereen Latham MD ORDERED: Gross Micro L5, ER, SD, IOC, IHC, Add. immunos, IHC ER/SD/Her2N/4, Ki-67, p63, SMM, [id number] Copies To: Shereen Latham MD [address] [address] Aaron Pringle MD [facility] [address] [place] [phone] ----- ------- Signed (signature on file) Beck Whatley MD 07/05/25 1423 ----- ------- END OF REPORT us Generic External Data Provider LAB BLOOD ORDERAB LES Final Result [facility] [address] [place], [place] [phone] * BI MM SURGICAL SPECIMEN (06/28/2025 10:13 AM EDT) Anatomical Region Laterality Modality Breast Bilateral Mammography 06/28/2025 10:1 3 AM EDT Narrative 06/28/2025 11:09 AM EDT [address] [address] [id number] Mammography Report Signed Patient: Azra Cast MR#: [id number] : 1975 Acct:[id number] Age/Sex: 49 / F ADM Date: 06/28/25 Loc: [facility] Attending Dr: Aaron Pringle MD Ordering Physician: Aaron Pringle MD Results: Date of Service: 06/28/25 Follow Up: Procedure(s): MM surgical specimen Accession Number(s): [id number] cc: Shereen Latham MD; Aaron Pringle MD Single left breast specimen radiograph demonstrates a tag with the barbell clip and a second tag with a top hat clip. Electronically signed by: Cara Rodriges DO 06/28/2025 11:07 AM EDT Dictated By: Cara Rodriges DO Signed By: <Electronically signed by Cara Rodriges DO in OV> 06/28/25 1107 DD/ 1013 TD/TT: 06/28/25 1104 Label Pinker: Procedure Note Donotuseinterpreter, Image - 06/28/[address] [address] [id number] Mammography Report Signed Patient: Nicolas CastR#: [id number] : 1975Acct:[id number] Age/Sex: 49 / FADM Date: 06/28/25 Loc: [facility] Attending Dr: Aaron Pringle MD Ordering Physician: Aaron Pringleesults: Date of Service: 06/28/25Follow Up: Procedure(s): MM surgical specimen Accession Number(s): [id number] cc: Shereen Latham MD; Aaron Pringle MD Single left breast specimen radiograph demonstrates a tag with the barbell clip and a second tag with a top hat clip. Electronically signed by: Cara Rodriges DO 06/28/2025 11:07 AM EDT RP Workstation: [employer] Dictated By: Cara Rodriges DO Signed By: <Electronically signed by Cara Rodriges DO in OV> 06/28/25 1107 DD/ 1013 TD/TT: 06/28/25 1104 Label Pinker: [facility] External Provider IMG BI PROCEDURES Edited Result - Final documented in this encounter Visit Diagnoses Diagnosis Bilateral malignant neoplasm of breast in female, unspecified estrogen receptor status, unspecified site of breast ([facility])- Primary Abnormal mammogram Abnormal mammogram, unspecified documented in this encounter Additional Health Concerns Assessment Noted Time PHQ-9 Depression Total Score: 21 025 11:03 AM EDT documented as of this encounter Care Teams Stock Mover Relationship Specialty Start Date End Date Shereen Latham MD [address] [place] [address] PCP - General Family Medicine 11/02/18 Sury Benitez [address] [place] [address] Dr [address] [place] [address] Pulmonary Disease 09/27/24 Nirali Madrid OD [address] [place] [address] Optometry 10/27/24 Li Grande MD [address] [place] [address] Hematology and Oncology 10/27/24 Anselmo Gates MD [address] [place] [address] Drive [address] [place] [address] Orthopaedic Surgery 10/27/24 Margaret Holman [address] [place] [address] Cardiology 10/27/24 Herberth Stokes MD [address] [place] [address] Gastroenterology 10/27/24 Hilton Palacios MD [address] [place] [address], [address] [place] [address] Neurology 02/06/25 Aaron Pringle MD [address] [place] [address] [place] [address] General Surgery 03/07/25 Pily Delaney Teaching FellowStick Inserter 07/22/24 lEie Vicky [facility] Psychology 12/29/24 documented as of this encounter
--- OUTSIDE RECORDS SUMMARY | 2025-07-11 13:07 | XMS_ITS | Encounter Summary ---
Author Organization [employer] Address [address] [place] [address] 7t [place] [address] Care Team Providers Care Drop Worker Name Role Phone Shereen Latham MD Primary Care Provider [phone] Nupur Bullock PharmD Unavailable Sury Benitez Unavailable [phone] JuliusLester castellanosn OD Unavailable Li Grande MD Unavailable [phone] Anselmo Gates MD Unavailable Margaret Holman Unavailable Herberth Stokes MD Unavailable [phone] Hilton Palacios MD Unavailable [phone] Aaron Pringle MD Unavailable [phone] Lori Batista Unavailable [phone] Neelima Raygoza Unavailable Reason for Visit * Reason Comments Med Refill Encounter Details Date Type Department Care Team (Late st Contact Info) Description 12/02/2022 Refill [facility] MEDICINE [address] [place], [place] [phone] Shereen Latham MD [address] [place], [place] [phone] Wheeze (Primary Dx); Pain Social History Tobacco [...] 1:30 PM EDT Office Visit [facility] ADULT DENTAL [address] [place] [address] Isa De La Rosa DDS [address] [place] [address] 09/13/2025 3:15 PM EST Office Visit [facility] MEDICINE [address] [place] [address] Shereen Latham MD [address] [place] [address] documented as of this encounter Visit Diagnoses Diagnosis Wheeze- Primary Wheezing Pain Generalized pain documented in this encounter Care Teams Drop Worker Relationship Specialty Start Date End Date Shereen Latham MD [address] [place] [address] PCP - General Family Medicine 11/02/18 Nupur Bullock, CharleneD [address] [place] [address] Pharmacist Internal Medicine 08/09/24 05/15/25 Sury Benitez [address] [place] [address] [place] [address] [place] [address] Pulmonary Disease 09/27/24 Nirali Madrid OD [address] [place] [address] Optometry 10/27/24 Li Grande MD [address] [place] [address] Hematology and Oncology 10/27/24 Anselmo Gates MD [address] [place] [address] Orthopaedic Surgery 10/27/24 Margaret Holman [address] 3rd [place] [address] Cardiology 10/27/24 Herberth Stokes MD 11 [facility] 3rd [place] [address] Gastroenterology 10/27/24 Hilton Palacios MD 15 [facility], [address] [place] [address] Neurology 02/06/25 Aaron Pringle MD [address] [place] [address] General Surgery 03/07/25 Lori Batista Registered Nurse 06/15/25 06/15/25 Neelima Raygoza 06/15/25 06/16/25 Pily Delaney Group LeaderMetrology Engineer 07/22/24 Elei Vicky [facility] 12/29/24 documented as of this encounter
--- OUTSIDE RECORDS SUMMARY | 2025-07-11 13:07 | XMS_ITS | Encounter Summary ---
Author Organization [employer] Address [address] [facility] 7t [place] [address] Care Team Providers Care Clothes Shaker Name Role Phone Shereen Latham MD Primary Care Provider [phone] Nupur Bullock PharmD Unavailable Sury Benitez Unavailable [phone] Julius, Nirali OD Unavailable Li Grande MD Unavailable Anselmo Gates MD Unavailable Margaret Holman Unavailable Herberth Stokes MD Unavailable [phone] Hilton Palacios MD Unavailable Aaron Pringle MD Unavailable [phone] Lori Batista Unavailable [phone] Neelima Raygoza Unavailable Encounter Details Date Type Department Care Team (Late st Contact Info) Description 10/22/2023 Orders Only [facility] MEDICINE [address] [place], [place] [phone] Shereen Latham MD [address] [place], [place] [phone] Vitamin D deficiency Social History Tobacco Use [...] Description 08/07/2025 1:30 PM EDT Office Visit [facility] ADULT DENTAL [address] [place] [address] Isa De La Rosa DDS [address] [place] [address] 09/13/2025 3:15 PM EST Office Visit [facility] MEDICINE [address] [place] [address] Shereen Latham MD [address] [place] [address] documented as of this encounter Visit Diagnoses Diagnosis Vitamin D deficiency documented in this encounter Additional Health Concerns Assessment Noted Time PHQ-9 Depression Total Score: 023 10:42 AM EST documented as of this encounter Care Teams Clothes Shaker Relationship Specialty Start Date End Date Shereen Latham MD [address] [place] [address] PCP - General Family Medicine 11/02/18 Nupur Bullock, CharleneD [address] [place] [address] Pharmacist Internal Medicine 08/09/24 05/15/25 Sury Benitez 10 [facility] [address] [place] [address] Pulmonary Disease 09/27/24 Nirali Madrid OD [address] [facility] [place] [address] Optometry 10/27/24 Li Grande MD [address] [place] [address] Hematology and Oncology 10/27/24 Anselmo Gates MD [address] [place] [address] Orthopaedic Surgery 10/27/24 Margaret Holman 11 [facility] 3rd [place] [address] Cardiology 10/27/24 Herberth Stokes MD 11 [facility] [address] [place] [address] Gastroenterology 10/27/24 Hilton Palacios MD 15 [facility], [address] [place] [address] Neurology 02/06/25 Aaron Pringle MD 11 [facility] [address] [place] [address] General Surgery 03/07/25 Lori Batista Registered Nurse 06/15/25 06/15/25 Neelima Raygoza 06/15/25 06/16/25 Pily Delaney Cyber Threat AnalystSenior Java Programmer Analyst 07/22/24 Elie Vicky [facility] 12/29/24 documented as of this encounter
--- OUTSIDE RECORDS SUMMARY | 2025-07-11 13:07 | XMS_ITS | Encounter Summary ---
Author Organization [employer] Address [address] [place] [address] 7 [place] [address] Care Team Providers Care Representative Name Role Phone Shereen Latham MD Primary Care Provider [phone] Nupur Bullock PharmD Unavailable Sury Benitez Unavailable [phone] JuliusLester castellanosn OD Unavailable Li Grande MD Unavailable [phone] Anselmo Gates MD Unavailable Margaret Holman Unavailable Herberth Stokes MD Unavailable [phone] Hilton Palacios MD Unavailable Aaron Pringle MD Unavailable Lori Batista Unavailable Neelima Raygoza Unavailable Reason for Visit * Reason Onset Date Comments Medication Question 07/05/2024 Encounter Details Date Type Department Care Team (Late st Contact Info) Description 07/05/2024 Telephone [facility] MEDICINE [address] [place], [place] [phone] Shereen Latham MD [address] [place], [place] [phone] Medication Question Social History Tobacco Use Types [...] the past 12 months, has t he [employer] gas, oil or water [employer] threatened to shut off services in your [...] is no medication interaction. Contact pt at [phone] documented in this encounter Plan of Treatment Upcoming Encounters Date Type Department Care Team (Late st Contact Info) Description 08/07/2025 1:30 PM EDT Office Visit [facility] ADULT DENTAL [address] [place] [address] Paz-Connor, Isa, DDS [address] [place] [address] 09/13/2025 3:15 PM EST Office Visit [facility] MEDICINE [address] [place] [address] Shereen Latham MD [address] [place] [address] documented as of this encounter Visit Diagnoses Diagnosis Pain Generalized pain documented in this encounter Additional Health Concerns Assessment Noted Time PHQ-9 Depression Total Score: 13 08 024 4:53 PM EDT documented as of this encounter Care Teams Representative Relationship Specialty Start Date End Date Shereen Latham MD [address] [place] [address] PCP - General Family Medicine 11/02/18 Nupur Bullock, Pushpa [address] [place] [address] Pharmacist Internal Medicine 08/09/24 05/15/25 Sury Benitez [address] [place] [address] [address] [place] [address] Pulmonary Disease 09/27/24 Nirali Madrid OD 267 [place] [address] Optometry 10/27/24 Li Grande MD [address] [place] [address] Hematology and Oncology 10/27/24 Anselmo Gates MD 10 [facility] 203 [place] [address] Orthopaedic Surgery 10/27/24 Margaret Holman 11 [facility] 3rd [place] [address] Cardiology 10/27/24 Herberth Stokes MD [address] [address] Gastroenterology 10/27/24 Hilton Palacios MD 15 [facility], [address] [place] [address] Neurology 02/06/25 Aaron Pringle MD 11 [facility] [address]rd [place] [address] General Surgery 03/07/25 Lori Batista Registered Nurse 06/15/25 06/15/25 Neelima Raygoza 06/15/25 06/16/25 Pily Delaney Chief Lock Tender OperatorProgram Director/Music Director 07/22/24 Elie Vicky [facility] Psychology 12/29/24 documented as of this encounter
--- OUTSIDE RECORDS SUMMARY | 2025-07-11 13:07 | XMS_ITS | Encounter Summary ---
Author Organization [employer] Address 75 [facility] 7 [place] [address] Care Team Providers Care Sugar Laboratory Assistant Name Role Phone Shereen Latham MD Primary Care Provider [phone] Sury Benitez Unavailable [phone] Nirali Madrid OD Unavailable Li Grande MD Unavailable [phone] Anselmo Gates MD Unavailable Margaret Holman Unavailable Herberth Stokes MD Unavailable [phone] Hilton Palacios MD Unavailable Aaron Pringle MD Unavailable [phone] Reason for Visit * Reason Comments Med Refill Encounter Details Date Type Department Care Team (Late st Contact Info) Description 07/02/2025 Refill [facility] MEDICINE [address] [place], [place] [phone] Shereen Latham MD [address] [place], [place] [phone] Alcohol abuse Social History Tobacco Use Types [...] [facility] ADULT DENTAL [address] [place] [address] Isa De La Rosa DDS [address] [place] [address] 09/13/2025 3:15 PM EST Office Visit [facility] MEDICINE [address] [place] [address] Shereen Latham MD [address] [place] [address] documented as of this encounter Visit Diagnoses Diagnosis Alcohol abuse Nondependent alcohol abuse, unspecified drinking behavior documented in this encounter Additional Health Concerns Assessment Noted Time PHQ-9 Depression Total Score: 21 025 11:03 AM EDT documented as of this encounter Care Teams Sugar Laboratory Assistant Relationship Specialty Start Date End Date Shereen Latham MD [address] [place] [address] PCP - General Family Medicine 11/02/18 Sury Benitez [address] [place] [address] Dr [facility] 103 [place] [address] Pulmonary Disease 09/27/24 Nirali Madrid OD [address] [place] [address] Optometry 10/27/24 Li Grande MD [address] [place] [address] Hematology and Oncology 10/27/24 Anselmo Gates MD [address] [place] [address] Orthopaedic Surgery 10/27/24 Margaret Holman 11 [facility] 3rd [place] [address] Cardiology 10/27/24 Herberth Stokes MD 11 [facility] [address]rd [place] [address] Gastroenterology 10/27/24 Hilton Palacios MD [address] [place] [address] DR, [address] [place] [address] Neurology 02/06/25 Aaron Pringle MD [address] [place] [address] 3rd [place] [address] General Surgery 03/07/25 Pily Delaney Direct Care SpecialistPals Nurse 07/22/24 Elie Vicky [facility] Psychology 12/29/24 documented as of this encounter
--- OUTSIDE RECORDS SUMMARY | 2025-07-11 13:08 | XMS_ITS | Encounter Summary ---
Author Organization [employer] Address 75 [facility] 7 [place] [address] Care Team Providers Care Landing Signal Officer Name Role Phone [place], Shereen NOLASCO Primary Care Provider [phone] Sury Benitez Unavailable [phone] Nirali Madrid OD Unavailable Li Grande MD Unavailable [phone] Anselmo Gates MD Unavailable Margaret Holman Unavailable Herberth Stokes MD Unavailable [phone] Hilton Palacios MD Unavailable [phone] Aaron Pringle MD Unavailable [phone] Neelima Raygoza Unavailable Reason for Visit * Reason Onset Date Comments active requested appt 06/16/2025 Encounter Details Date Type Department Care Team (Late st Contact Info) Description 06/16/2025 Telephone [facility] ADULT D[facility]AL [address] [place], [place] [phone] Isa De La Rosa DDS [address] [place], [place] [phone] active requested appt Social History Tobacco Use [...] Notes * Telephone Encounter - Bebe De Leon - 06/16/2025 12:27 PM EDT Patient called in checking in on status of active requested appt. She states she has called severaltimes being informed that calendar is still not open. Please reach out to patient DR documented in this encounter Plan of Treatment Upcoming Encounters Date Type Department Care Team (Late st Contact Info) Description 08/07/2025 1:30 PM EDT Office Visit [facility] ADULT DENTAL [address] [place] [address] Paz-ConnorIsa abarca, DDS [address] [place] [address] 09/13/2025 3:15 PM EST Office Visit [facility] MEDICINE [address] [place] [address] Shereen Latham MD [address] [place] [address] documented as of this encounter Visit Diagnoses Not on filedocumented in this encounter Additional Health Concerns Assessment Noted Time PHQ-9 Depression Total Score: 21 025 11:03 AM EDT documented as of this encounter Care Teams Landing Signal Officer Relationship Specialty Start Date End Date Shereen Latham MD 230 [place] [address] PCP - General Family Medicine 11/02/18 Sury Benitez [address] [place] [address] Dr Yates [address] [place] [address] Pulmonary Disease 09/27/24 Nirali Madrid OD [address] [place] [address] Optometry 10/27/24 Li Grande MD [address] [place] [address] Hematology and Oncology 10/27/24 Anselmo Gates MD [address] [place] [id number] Orthopaedic Surgery 10/27/24 Margaret Holman [address] 3rd [place] [id number] Cardiology 10/27/24 Herberth Stokes MD [address] 3rd [place] [address] Gastroenterology 10/27/24 Hilton Palacios MD [address] [facility], [address] [place] [address] Neurology 02/06/25 Aaron Pringle MD [address] 3rd [facility] [place] [address] General Surgery 03/07/25 Neelima Raygoza 06/15/25 06/16/25 Pily Delaney Cafeteria Table AttendantWanigan Clerk 07/22/24 Elie Vicky [facility] Psychology 12/29/24 documented as of this encounter
--- OUTSIDE RECORDS SUMMARY | 2025-07-11 13:08 | XMS_ITS | Encounter Summary ---
Author Organization [employer] Address 75 [facility] 7t [place] [address] Care Team Providers Care Dry Wall Installations Mechanic Name Role Phone Shereen Latham MD Primary Care Provider [phone] Nupur Bullock PharmD Unavailable Sury Benitez Unavailable [phone] JuliusLester castellanosn OD Unavailable Li Grande MD Unavailable [phone] Anselmo Gates MD Unavailable Margaret Holman Unavailable Herberth Stokes MD Unavailable [phone] Hilton Palacios MD Unavailable Aaron Pringle MD Unavailable [phone] Lori Batista Unavailable [phone] Neelima Raygoza Unavailable Reason for Visit * Reason Comments Med Refill Encounter Details Date Type Department Care Team (Late st Contact Info) Description 01/17/[address] [facility] MED & PEDS [address] [place], [place] [phone] Shereen Latham MD 230 [place], [place] [phone] Pain Social History Tobacco Use Types Packs/Day [...] Description 08/07/2025 1:30 PM EDT Office Visit [facility] ADULT DENTAL 230 [place] [address] Isa De La Rosa DDS 230 [place] [address] 09/13/2025 3:15 PM EST Office Visit [facility] MEDICINE 230 [place] [address] Shereen Latham MD 230 [place] [address] documented as of this encounter Visit Diagnoses Diagnosis Pain Generalized pain documented in this encounter Additional Health Concerns Assessment Noted Time PHQ-9 Depression Total Score: 22 025 10:17 AM EST documented as of this encounter Care Teams Dry Wall Installations Mechanic Relationship Specialty Start Date End Date Shereen Latham MD 230 [place] [address] PCP - General Family Medicine 11/02/18 Nupur Bullock PharmD 230 [place] [address] Pharmacist Internal Medicine 08/09/24 05/15/25 Sury Benitez [address] [place] [address] Dr [address] [place] [address] Pulmonary Disease 09/27/24 Nirali Madrid OD [address] [place] [address] Optometry 10/27/24 Li Grande MD [address] [place] [address] Hematology and Oncology 10/27/24 Anselmo Gates MD [address] [place] [address] Drive [address] [place] [address] Orthopaedic Surgery 10/27/24 Margaret Holman [address] 3rd [place] [address] Cardiology 10/27/24 Herberth Stokes MD [address] [place] [address] Gastroenterology 10/27/24 Hilton Palacios MD [address] [place] [address], [address] [place] [address] Neurology 02/06/25 Aaron Pringle MD [address] [place] [address] Drive [address] [facility] [place] [address] General Surgery 03/07/25 Lori Batista Registered Nurse 06/15/25 06/15/25 Neelima Raygoza 06/15/25 06/16/25 Pily Delaney Clinical InstructorSurgical Services Asst 07/22/24 Elie Vicky [facility] 12/29/24 documented as of this encounter
--- OUTSIDE RECORDS SUMMARY | 2025-07-11 13:08 | XMS_ITS | Clinical Summary ---
Author Organization [facility] Address [address] [facility] [address] [place] [phone] Phone Care Team Providers Care Ordnance Engineer Name Role Phone Unavailable Primary Care Provider [...] It is not the complete legal health record.[facility]
--- OUTSIDE RECORDS SUMMARY | 2025-07-11 13:08 | XMS_ITS | Encounter Summary ---
Author Organization [employer] Address 75 [facility] 7 [place] [address] Care Team Providers Care Pot Sander Name Role Phone Shereen Latham MD Primary Care Provider [phone] Sury Benitez Unavailable [phone] Nirali Madrid OD Unavailable Li Grande MD Unavailable [phone] Anselmo Gates MD Unavailable Margaret Holman Unavailable Herberth Stokes MD Unavailable [phone] Hilton Palacios MD Unavailable Aaron Pringle MD Unavailable [phone] Lori Batista Unavailable [phone] Neelima Raygoza Unavailable Reason for Visit * Reason Onset Date Comments Nurse Triage 06/07/2025 Encounter Details Date Type Department Care Team (Late st Contact Info) Description 06/07/2025 Telephone [facility] MEDICINE 230 [place], [place] [phone] Shereen Latham MD 230 [place], [place] [phone] Nurse Triage Social History Tobacco Use Types [...] night. Pt is advised to come to [facility] open till 8pm this evening to be seen by provider. Pt agrees with this disposition. Pt will come to [facility] after 5pm since is in the [...] was exposed to Bursae Contact pt at [phone] documented in this encounter Plan of Treatment Upcoming Encounters Date Type Department Care Team ([facility] st Contact Info) Description 08/07/2025 1:30 PM EDT Office Visit [facility] ADULT DENTAL [address] [place] [address] Isa De La Rosa, JUAN FRANCISCOS [address] [place] [address] 09/13/2025 3:15 PM EST Office Visit [facility] MEDICINE [address] [place] [address] Shereen Latham MD 230 [place] [address] documented as of this encounter Visit Diagnoses Not on filedocumented in this encounter Additional Health Concerns Assessment Noted Time PHQ-9 Depression Total Score: 21 025 11:03 AM EDT documented as of this encounter Care Teams Pot Sander Relationship Specialty Start Date End Date Shereen Latham MD 230 [place] [address] PCP - General Family Medicine 11/02/18 Sury Benitez [address] [place] [address] Dr [facility] [address] [place] [address] Pulmonary Disease 09/27/24 Nirali Madrid OD 267 [place] [address] Optometry 10/27/24 Li Grande MD [address] [place] [address] Hematology and Oncology 10/27/24 Anselmo Gates MD [address] [facility] [address] [place] [address] Orthopaedic Surgery 10/27/24 Margaret Holman [address] [facility] [address] 3rd [place] [address] Cardiology 10/27/24 Herberth Stokes MD 11 [facility] 3rd [place] [address] Gastroenterology 10/27/24 Hilton Palacios MD [address] [place] [address], [address] [place] [address] Neurology 02/06/25 Aaron Pringle MD [address] [place] [address] 3rd Floor [place] [address] General Surgery 03/07/25 Lori Batista Registered Nurse 06/15/25 06/15/25 Neelima Raygoza 06/15/25 06/16/[address] ForemanWeb Site Administrator 07/22/24 Elie Vicky [facility] Psychology 12/29/24 documented as of this encounter
--- OUTSIDE RECORDS SUMMARY | 2025-07-11 13:08 | XMS_ITS | Clinical Summary ---
Author Organization [address] [facility] Address [address] [place] [address] Phone Care Team Providers Care Claims Customer Service Representative Name Role Phone Shereen Latham MD Primary Care Provider [phone] Social History Tobacco Use Types Packs/Day Years [...] 1:00 PM EDT Consult Orthopedic Surgery - [place] [address] [phone] Antony Garrett DPM [address] [address] Health Maintenance Due Date Last Done Comments [...] topic Insurance MEDICAID - [place] Care Teams Claims Customer Service Representative Relationship Specialty Start Date End Date [place], MD Shereen [address] [place] [phone] PCP - General 01/13/1996
--- OUTSIDE RECORDS SUMMARY | 2025-07-11 13:08 | XMS_ITS | Encounter Summary ---
Author Organization [employer] Address 75 [facility] 7t [place] [address] Care Team Providers Care Pesticide Applicator Name Role Phone [place], Shereen NOLASCO Primary Care Provider Nupur Bullock PharmD Unavailable [phone] Sury Benitez Unavailable [phone] Julius, Nirali OD Unavailable Li Grande MD Unavailable [phone] Anselmo Gates MD Unavailable Margaret Holman Unavailable Herberth Stokes MD Unavailable [phone] Hilton Palacios MD Unavailable Aaron Pringle MD Unavailable [phone] Lori Batista Unavailable [phone] Neelima Raygoza Unavailable Reason for Referral * Consultation (Routine) - Closed Specialty Diagnoses / Procedures Referred By Walter t Referred To Contact Obstetrics and Gynecology Diagnoses Women's annual routine gynecological examination Stacey Khan MD [address] [place] [address] Phone: tel: fax: [facility] Women s Services [address] 5th Floor [address] (Main Hospital Entrance) [place] Phone: tel: fax: Referral ID Status Reason Start Date Expiration Date V isits Requested Visits Authorized [id number] Closed Specialty Services Required 01/19/2025 01/19/2026 9 9 Encounter Details Date Type Department Care Team (Late st Contact Info) Description 01/19/2025 Orders Only [facility] MEDICINE [address] [place] [address] Stacey Khan MD [address] [place], [place] [phone] Women's annual routine gynecological examination (Primary Dx) [...] 1:30 PM EDT Office Visit [facility] ADULT DENTAL [address] [place] [address] Isa De La Rosa, DDS [address] [place] [address] 09/13/2025 3:15 PM EST Office Visit [facility] MEDICINE [address] [place] [address] Shereen Latham MD [address] [place] [address] Scheduled Referrals Name Type Priority Associated Diagnoses [...] Sensitivity Troponin I (01/19/2025 4:33 PM EDT) [facility] TROPONIN I HIGH SENSITIVITY 7.8 <3.5 - 17.0 ng/L [facility] Comment:The Henriquez high sens itivity Troponin-I results should beused in conjunction with other diagnostic information suchas ECG, clinical observations and information, and patientsymptoms to aid in the diagnosis of NV. 01/19/2025 4:33 PM EDT 01/19/2025 4:34 PM EDT Generic External Data Provider LAB BLOOD ORDERAB LES Final Result Performing Organization Address [facility]/ZIP Co de Phone Number [facility] [address] [place] [phone] * B Type Natriuretic Peptide (BNP) (01/19/2025 4:33 PM EDT) [facility] B Type Natriuretic Peptide 22 <100 pg/mL [facility] 01/19/2025 4:33 PM EDT 01/19/2025 4:34 PM EDT Generic External Data Provider LAB BLOOD ORDERAB LES Final Result Performing Organization Address [facility]/ZIP Co de Phone Number [facility] [address] [place] [phone] * D Dimer High Sensitivity (01/19/2025 4:33 PM EDT) [facility] D Dimer High Sensitivity <150 NG/ML [facility] [...] LES Final Result [facility] [address] [place] [address] [phone] documented in this encounter Visit Diagnoses Diagnosis Women's annual routine gynecological examination- Primary documented in this encounter Additional Health Concerns Assessment Noted Time PHQ-9 Depression Total Score: 22 025 10:17 AM EST documented as of this encounter Care Teams Pesticide Applicator Relationship Specialty Start Date End Date Shereen Latham MD [address] [place] [address] PCP - General Family Medicine 11/02/18 Nupur Bullock, CharleneD [address] [place] [address] Pharmacist Internal Medicine 08/09/24 05/15/25 Sury Benitez [address] [place] [address] Dr [facility] [address] [place] [address] Pulmonary Disease 09/27/24 Nirali Madrid OD 267 [place] [address] Optometry 10/27/24 Li Grande MD [address] [place] [address] Hematology and Oncology 10/27/24 Anselmo Gates MD [address] [place] [address] Orthopaedic Surgery 10/27/24 Margaret Holman [address] 3rd [place] [address] Cardiology 10/27/24 Herberth Stokes MD [address] [facility] [address] 3rd [place] [address] Gastroenterology 10/27/24 Hilton Palacios MD [address] [place] [address], [address] [place] [address] Neurology 02/06/25 Aaron Pringle MD [address] [place] [address] 3rd [place] [address] General Surgery 03/07/25 Lori Batista Registered Nurse 06/15/25 06/15/25 Neelima Raygoza 06/15/25 06/16/25 Pily Delaney Syrup Machine LaborerUpscale Security Officer 07/22/24 Elie BRASHER [facility] Psychology 12/29/24 documented as of this encounter
[2025-07-25 09:49] VITALS: BMI 30.7
[2025-07-27] VITALS (7 sets, daily range): BP systolic 112–126; BP diastolic 73–91; PULSE 89–96; RESP 12–16; TEMP 36.1–36.7; O2SAT 94–98; BMI 31.1
--- NOTE | ~2025-07-27 | NM_ITS ---
EXAMINATION: Left breast lymphoscintigraphy. CLINICAL INDICATION: Left breast invasive ductal cancer. COMPARISON: Mammogram 06/28/2025. TECHNIQUE: Following explaining left breast lymphoscintigraphy procedure, benefits and risk, a written consent was obtained. 4% lidocaine jelly was applied around the left breast areola often are before the exam. On nuclear medicine table patient was placed supine and the area around the left breast area was cleaned in a sterile fashion. 0.5 mCi of 99m technetium Tilmanocept was divided in 4 equal doses and injected in 4 quadrants around the left breast areola and imaging obtained 30 minutes later. Patient tolerated procedure extremely well. Findings/ NM/NM sentinel node w imaging impression: There is isotope activity on the left breast areola. There are 2 sentinel nodes seen within the left anterior axilla on 30 minutes of imaging. No additional isotope activity seen along the medial breast or internal mammary nodes. Electronically signed by: Sharath Sousa MD 07/27/2025 11:04 AM EDT
[2025-07-27] MEDS: Lidocaine HCl 4 % Topical 50 ML SOLUTION 1 APPL TOPICAL (07:08)
--- NOTE | 2025-07-27 07:30 | MHC.SHP ---
Pre-Procedural Eval Section A - 24 Hr Update-Section A only Date of Service: 07/27/25 The patient is an INPATIENT: No Changes since office visit: Yes Patient answered all questions; No Cold of Flu in the past 2 weeks, No New Medical Problems and No Changes in Medication The patient has been examined within 24 hours of the surgical procedure. The History & Physical has been completed within 30 days and I have reviewed it.: Yes Section B - Complete if H&P > 30 days Chief Complaint: Malignant neoplasm of unspecified site Allergies: Allergies Allergy/AdvReac Type Severity Reaction Status Date / Time amoxicillin (AMOXICILLIN) Allergy Intermediate rash, Verified 07/27/25 07:18 rash/itching sulfamethoxazole (From Allergy Intermediate RASH Verified 07/27/25 07:18 BACTRIM) trimethoprim (From BACTRIM) Allergy Intermediate RASH Verified 07/27/25 07:18 hydrocodone (Hydrocodone) Allergy Mild ITCH Verified 07/27/25 07:18 ibuprofen (From Motrin) Allergy Mild UPSET Verified 07/27/25 07:18 STOMACH latex (Latex) Allergy Mild ITCH Verified 07/27/25 07:18 Plan Diagnosis/Plan: Unchanged I have reviewed the history and physical and performed a pertinent physical examination on my patient. No changes have occurred unless specified. Time Spent With Patient Time: Total time managing care of this patient today ____ minutes.
[2025-07-27] MEDS: Lactated Ringers 1,000 ML 50 ML IVCONT (07:39)
--- NOTE | 2025-07-27 09:33 | HO.ANESPROP2 ---
Documented by User: Rajni Valderrama NP 07/25/25 12:10 HPI - Anesthesia Eval Consult details Narrative: 49yo F for Left Axillary Node Biopsy s/p Breast Lumpectomy w/LOCalizer 06/2025 with GA-LMA 3 (Cardiac optimized prior) Follows [facility] Cardiology for HFpEF, Tachy, dyspnea. Holter, stress, ECHO ok. Reports below. Last office visit 06/2025, tachy with another increase in metoprolol. Atypical CP reported with likely costhochondritis. Follows [facility] pulmo - last office visit 04/2025, sleep study showed no apnea or hypoxemia, + snoring PMFSH Active Problems Active Problems: All Active Problems Invasive ductal carcinoma of left breast (Acute) Anal fissure (Acute) Sebaceous cyst of labia (Acute) Abnormal MRI, breast (Acute) Joint pain (Acute) Arthritis of right knee (Acute) Atypical ductal hyperplasia of left breast (Acute) Abnormal mammogram of left breast (Acute) Sinus tachycardia (Acute) Non-restorative sleep (Acute) Daytime somnolence (Acute) Chest discomfort (Acute) Multiple pulmonary nodules (Acute) Chronic bronchitis (Acute) Restrictive ventilatory defect (Acute) Cardiomyopathy (Acute) Nicotine dependence, cigarettes, uncomplicated (Acute) Dyspnea (Acute) Environmental allergies (Acute) Hospital discharge follow-up (Acute) (HFpEF) heart failure with preserved ejection fraction (Acute) Effusion of knee joint right (Acute) Acute pain of right knee (Acute) Gout (Acute) Alcohol use disorder, severe, dependence (Acute) Osteoarthritis of right knee (Acute) Malignant neoplasm of breast (Acute) Anemia (Acute) Bilateral knee pain (Acute) Bilateral primary osteoarthritis of knee (Acute) Hypomagnesemia (Acute) BENIGNO (acute kidney injury) (Acute) Carpal tunnel syndrome of left wrist (Acute) Carpal tunnel syndrome of right wrist (Acute) COVID (Acute) Elevated troponin (Acute) Chest pain (Acute) Uncontrolled hypertension (Acute) Iron deficiency anemia (Acute) Complete tear of anterior cruciate ligament of left knee (Acute) Post-traumatic osteoarthritis of left knee (Acute) Fibromyalgia (Acute) Past Medical History Medical History Asthma GERD (gastroesophageal reflux disease) CKD (chronic kidney disease) Anemia Cardiomyopathy Gout Pulmonary nodule Arthritis Fibromyalgia Anxiety and depression Lower back pain Panic attack H/O ETOH abuse Breast cancer Hypertension Family History Family History Mother Heart disease Alzheimers disease Father Heart disease Brother Asthma Heart disease Family history of problems with anesthesia: No Surgical History Surgical History History of lumpectomy of left breast (06/28/25) Hx of knee surgery Hx of right mastectomy H/O colonoscopy History of carpal tunnel release Hx of tubal ligation History of breast lump/mass excision H/O: hysterectomy History of Problems with Anesthesia: No Social History Social History Household Members: None Housing: Apartment Housing Other:: 4th floor. No elevator Are you a primary wound care physician to a significant other at home: No Do you presently have visiting nurse or other home services: No Alcohol intake: current Alcohol intake frequency: holidays/special occasions only Alcohol type: hard liquor Comment: socially every 3-4 months Patient Tobacco Use Status: Current everyday Tobacco user Tobacco use type: Cigarette Cigarettes Per Day: 5 Years Smoked: 38YRS e-Cigarette/Vaping Use: Never Used Second Hand Smoke Exposure: Yes Use of substances other than those prescribed or required for medical reasons: No Have you been hit, kicked, punched, or otherwise hurt by someone within the past year? If so, by whom?: No Are you DNR?: No Advance Directives: No Advance Directives Information Provided: Yes Advance Directives Date on File: 02/11/22 Patient : No Poor oral hygiene: No service: No Current occupational status: disabled Gender identity: Female Meds Allergies Allergy/AdvReac Type Severity Reaction Status Date / Time amoxicillin (AMOXICILLIN) Allergy Intermediate rash, Verified 07/27/25 07:18 rash/itching sulfamethoxazole (From Allergy Intermediate RASH Verified 07/27/25 07:18 BACTRIM) trimethoprim (From BACTRIM) Allergy Intermediate RASH Verified 07/27/25 07:18 hydrocodone (Hydrocodone) Allergy Mild ITCH Verified 07/27/25 07:18 ibuprofen (From Motrin) Allergy Mild UPSET Verified 07/27/25 07:18 STOMACH latex (Latex) Allergy Mild ITCH Verified 07/27/25 07:18 Home Medications ?Medication ?Instructions ?Recorded ?Confirmed ?Last Taken ?Type omeprazole 20 mg capsule,delayed 1 cap PO DAILY@0630 09/30/21 07/27/25 07/27/25 History release thiamine HCl (vitamin B1) 100 mg 1 tab PO DAILY 09/30/21 07/27/25 07/23/24 History tablet cholecalciferol (vitamin D3) 25 1 cap PO DAILY 06/04/22 07/27/25 07/23/24 History mcg (1,000 unit) capsule (Vitamin D3) cetirizine 10 mg tablet 10 mg PO DAILY PRN allergies 04/10/24 07/27/25 07/23/24 History albuterol sulfate 90 mcg/actuation 2 puff inhalation Q4H PRN 07/25/24 07/27/25 Unknown History aerosol inhaler shortness of breath or wheezing allopurinol 100 mg tablet 100 mg PO BID 01/19/25 07/27/25 Unknown History lorazepam 1 mg tablet 1 mg PO DAILY PRN anxiety attack 06/07/25 07/27/25 Unknown History multivitamin 1 tab PO DAILY 06/28/25 07/27/25 Unknown History Exam Exam Date and Time: 06/28/2025 Height,Weight and Vital Signs: Height 5 ft 7 in Weight 89 kg Pertinent Lab Results Pertinent Lab Results: Laboratory Tests 06/14/25 14:28 WBC 9.2 Hgb 10.8 L Hct 32.4 L Plt Count 286 D Sodium 143 Potassium 4.1 Chloride 106 Carbon Dioxide 25 BUN 24 H Creatinine 0.83 Narrative Narrative: EKG 06/2025 sinus tachycardia, cant exclude prior anterior infarct, rate 108, Qtc 460ms Holter 2024 1. Patient was monitored for total period of 2 days 2. Baseline was sinus rhythm but in sinus tachycardia, 99% of the time with average heart rate of 116 beats per minute 3. No significant pauses noted 4. Rare PACs noted 5. Patient marked the counter 4 times correlating with baseline sinus tachycardia ECHO 2024 Conclusions: - The left ventricular systolic function is mildly decreased. The calculated ejection fraction is 50% by biplane method. - There is a small loculated pericardial effusion overlying the left ventricle. Findings Procedure Information Contrast agent, definity, is being given per protocol without apparent complications. Left Ventricle Normal left ventricular cavity size. The left ventricular systolic function is mildly decreased. The calculated ejection fraction is 50% by biplane method. There is mild global hypokinesis. There is mild septal asymmetric hypertrophy. PR cardiolite stress test 2024 IMPRESSION: 1. Myocardial perfusion imaging study shows normal myocardial perfusion. 2. Gated LVEF is 45% during stress and 56% during rest. Correlate with echocardiogram. 3. Transient ischemic dilatation not present. Airway Mallampati Class: II TM Dist: >3cm Neck ROM: Full Assessment and Plan Assessment Anesthesia Assessment: Chart Reviewed Final Anesthetic Review Family History of Problems with Anesthesia: No History of Problems with Anesthesia: No Documented by User: Ester Orr DO 07/27/25 09:35 PMFSH Past Medical History Medical History Asthma GERD (gastroesophageal reflux disease) CKD (chronic kidney disease) Anemia Cardiomyopathy Gout Pulmonary nodule Arthritis Fibromyalgia Anxiety and depression Lower back pain Panic attack H/O ETOH abuse Breast cancer Hypertension Family History Family History Mother Heart disease Alzheimers disease Father Heart disease Brother Asthma Heart disease Family history of problems with anesthesia: No Surgical History Surgical History History of lumpectomy of left breast (06/28/25) Hx of knee surgery Hx of right mastectomy H/O colonoscopy History of carpal tunnel release Hx of tubal ligation History of breast lump/mass excision H/O: hysterectomy History of Problems with Anesthesia: No Social History Social History Household Members: None Housing: Apartment Housing Other:: 4th floor. No elevator Are you a primary wound care physician to a significant other at home: No Do you presently have visiting nurse or other home services: No Alcohol intake: current Alcohol intake frequency: holidays/special occasions only Alcohol type: hard liquor Comment: socially every 3-4 months Patient Tobacco Use Status: Current everyday Tobacco user Tobacco use type: Cigarette Cigarettes Per Day: 5 Years Smoked: 38YRS e-Cigarette/Vaping Use: Never Used Second Hand Smoke Exposure: Yes Use of substances other than those prescribed or required for medical reasons: No Have you been hit, kicked, punched, or otherwise hurt by someone within the past year? If so, by whom?: No Are you DNR?: No Advance Directives: No Advance Directives Information Provided: Yes Advance Directives Date on File: 02/11/22 Patient : No Poor oral hygiene: No service: No Current occupational status: disabled Gender identity: Female Meds Allergies Allergy/AdvReac Type Severity Reaction Status Date / Time amoxicillin (AMOXICILLIN) Allergy Intermediate rash, Verified 07/27/25 07:18 rash/itching sulfamethoxazole (From Allergy Intermediate RASH Verified 07/27/25 07:18 BACTRIM) trimethoprim (From BACTRIM) Allergy Intermediate RASH Verified 07/27/25 07:18 hydrocodone (Hydrocodone) Allergy Mild ITCH Verified 07/27/25 07:18 ibuprofen (From Motrin) Allergy Mild UPSET Verified 07/27/25 07:18 STOMACH latex (Latex) Allergy Mild ITCH Verified 07/27/25 07:18 Home Medications ?Medication ?Instructions ?Recorded ?Confirmed ?Last Taken ?Type omeprazole 20 mg capsule,delayed 1 cap PO DAILY@0630 09/30/21 07/27/25 07/27/25 History release thiamine HCl (vitamin B1) 100 mg 1 tab PO DAILY 09/30/21 07/27/25 07/23/24 History tablet cholecalciferol (vitamin D3) 25 1 cap PO DAILY 06/04/22 07/27/25 07/23/24 History mcg (1,000 unit) capsule (Vitamin D3) cetirizine 10 mg tablet 10 mg PO DAILY PRN allergies 04/10/24 07/27/25 07/23/24 History albuterol sulfate 90 mcg/actuation 2 puff inhalation Q4H PRN 07/25/24 07/27/25 Unknown History aerosol inhaler shortness of breath or wheezing allopurinol 100 mg tablet 100 mg PO BID 01/19/25 07/27/25 Unknown History lorazepam 1 mg tablet 1 mg PO DAILY PRN anxiety attack 06/07/25 07/27/25 Unknown History multivitamin 1 tab PO DAILY 06/28/25 07/27/25 Unknown History Exam Exam Date and Time: 07/27/25 0933 Height,Weight and Vital Signs: Height 5 ft 7 in Weight 89 kg Vital Signs Temperature 98.0 F 07/27/25 07:20 Pulse Rate 89 07/27/25 07:20 Respiratory Rate 12 07/27/25 07:20 Blood Pressure 116/85 07/27/25 07:20 Pulse Oximetry 97 07/27/25 07:20 Oxygen Delivery Method Room Air 07/27/25 07:20 Temperature 98.0 F 07/27/25 07:20 Pulse Rate 89 07/27/25 07:20 Respiratory Rate 12 07/27/25 07:20 Blood Pressure 116/85 07/27/25 07:20 Pulse Oximetry 97 07/27/25 07:20 Oxygen Delivery Method Room Air 07/27/25 07:20 Airway Mallampati Class: II TM Dist: <=3cm Neck ROM: Full Loose/Missing/Broken Teeth: Yes (broken #9, no loose teeth) Heart: S1S2 Lungs: CTAB Assessment and Plan Assessment Anesthesia Assessment: Anesthesia Plan Discussed and Chart Reviewed Final Anesthetic Review Family History of Problems with Anesthesia: No History of Problems with Anesthesia: No NPO: Yes ASA Class: III Final Preanesthetic Review: No Changes in Pt Med Stat, Meds/Allgs Chart Reviewed, Consent Obtained/Reviewed and Anes Risks/Benef Reviewed Patient Risk: Intermediate Procedure Risk: Low Anesthetic Plan Anesthetic Plan: GA and Agree w/ Assess. and Plan Disposition: Standard PACU
--- NOTE | 2025-07-27 10:36 | W.PM.OPN ---
Operative Note Operative Note Date of Service: 07/27/25 Narrative: Preoperative diagnosis: Left breast invasive ductal carcinoma Postoperative diagnosis: Same Procedure: Left axillary sentinel node biopsy Surgeon: Aaron Pringle MD Upholstery Parts Sorter: Analy Brewer PA-C; Phani Bolanos PA-C, MAXWELL Carter Anesthesia: General LMA Indications for procedure: 49-year-old female patient found to have an area of atypical ductal hyperplasia subsequently underwent lumpectomy which revealed invasive ductal carcinoma 0.6 cm with negative margins. She presents today for sentinel node biopsy. Operative findings: 1 large sentinel node identified, no additional additional palpable or radioactive nodes identified. Specimen: [place] node 1, additional axillary contents Estimated blood loss: 5 mL Complications: None Procedure details: Patient was brought to the OR and placed in a supine position. After administering general anesthesia the patient's right breast and axilla were prepped with ChloraPrep and draped in a sterile fashion. A surgical time-out was called the consent confirmed. Patient received preoperative antibiotics and Venodyne boots were in place. Local anesthesia consisting of 0.5% Sensorcaine was infiltrated in the left axilla. Using the gamma probe as a guide an incision was made along the lower end of the axilla in a curvilinear fashion. The incision was carried down into the subcutaneous tissue past the clavipectoral fascia and into the axilla. The gamma probe was used to identify an area of radio activity. This was grasped with an Allis clamp and dissected free from the surrounding axillary contents using electrocautery. One very hot sentinel node was identified and sent as sentinel node 1. Additional axillary tissue surrounding this was sent as a separate specimen although no palpable node or radio activity could be identified within the specimen. The axilla was further examined using the gamma probe and with palpation, and no further radio activity or palpable node could be identified. Hemostasis was assured using electrocautery and free ties of 3-0 Polysorb. Wounds were irrigated with saline solution and suctioned dry. Additional local anesthesia was infiltrated. Clavipectoral fascia was then reapproximated using interrupted 3-0 Polysorb sutures. Dermis was reapproximated using interrupted 3-0 Polysorb sutures. Skin was closed using a running subcuticular 4-0 Polysorb suture. Steri-Strips, 4 x 4 gauze and Tegaderm were then applied. The patient tolerated the procedure well. Sponge, instrument, and needle counts reported as correct. The patient was transferred to PACU in stable condition. Breast [place] Node Biopsy Substrate(s) used for sentinel node biopsy in the non-neoadjuvant setting: Radiotracer Substrate(s) used for sentinel node biopsy in the neoadjuvant setting: N/A All colored nodes or non-colored nodes present at the end of a dye filled lymphatic channel were removed, if dye was used as the substrate for localization: N/A All significantly radioactive nodes were removed, if radionuclide was used as the substrate for localization: Yes All palpably suspicious nodes were removed, if present: Yes If clips were placed in pathology-involved nodes, those nodes were identified and removed: N/A Procedure performed with curative intent?: Yes General Surg. - Synoptic Notes Breast [place] Node Biopsy Substrate(s) used for sentinel node biopsy in the non-neoadjuvant setting: Radiotracer Substrate(s) used for sentinel node biopsy in the neoadjuvant setting: N/A All colored nodes or non-colored nodes present at the end of a dye filled lymphatic channel were removed, if dye was used as the substrate for localization: N/A All significantly radioactive nodes were removed, if radionuclide was used as the substrate for localization: Yes All palpably suspicious nodes were removed, if present: Yes If clips were placed in pathology-involved nodes, those nodes were identified and removed: N/A Procedure performed with curative intent?: Yes
== END 2025-07-27 12:05 | disposition home or self-care (01) ==
PROVIDERS: PCP Family Medicine; Visit Provider Surgery
PROC: (CPT 38525; principal; 2025-07-27 10:30)
DX: C50.912 Malignant neoplasm of unspecified site of left female breast (principal); Z17.0 Estrogen receptor positive status [ER+]; Z17.21 Progesterone receptor positive status; Z17.32 Human epidermal growth factor receptor 2 negative status; Z98.890 Other specified postprocedural states; R59.9 Enlarged lymph nodes, unspecified; J45.909 Unspecified asthma, uncomplicated; K21.9 Gastro-esophageal reflux disease without esophagitis; I10 Essential (primary) hypertension; I42.9 Cardiomyopathy, unspecified; D64.9 Anemia, unspecified; M79.7 Fibromyalgia; M10.9 Gout, unspecified; F41.8 Other specified anxiety disorders; Z85.3 Personal history of malignant neoplasm of breast; Z90.11 Acquired absence of right breast and nipple; Z92.21 Personal history of antineoplastic chemotherapy; Z79.51 Long term (current) use of inhaled steroids; F10.11 Alcohol abuse, in remission; Z79.899 Other long term (current) drug therapy; Z88.1 Allergy status to other antibiotic agents; Z88.2 Allergy status to sulfonamides; Z88.6 Allergy status to analgesic agent; Z91.040 Latex allergy status; F17.210 Nicotine dependence, cigarettes, uncomplicated
CPT/HCPCS: 38525; 38900; 78195; 88307; 88342; A9520; J0131; J2003; J2371; J2405; J2704; J3010; J3374

== ENCOUNTER → 2025-07-27 06:49 | Outpatient (BNV) | payer MEDICAID, SELFPAY | PROVIDERS: PCP Family Medicine; Visit Provider Surgery | DX: C50.912 Malignant neoplasm of unspecified site of left female breast (principal) | CPT/HCPCS: 38525; 38900 ==

== ENCOUNTER → 2025-07-27 07:47 | Outpatient (BNV) | payer MEDICAID, SELFPAY | PROVIDERS: PCP Family Medicine; Visit Provider Radiology Diagnostic Radiology | DX: C50.912 Malignant neoplasm of unspecified site of left female breast (principal) | CPT/HCPCS: 78195 ==

== ENCOUNTER 2025-08-11 08:18 | Outpatient (AMB) | payer MEDICAID, SELFPAY ==
[2025-08-11 08:25] VITALS: BMI 30.1
--- NOTE | 2025-08-11 08:25 | A.OFFVIS_ITS ---
Vital Signs 3 08/11/25 08:25 Height 5 ft 7 in Weight 192 lb BMI 30.1 Intake Visit Reasons: S/P Lt. axillary SN bx Intake Note: This patient presents for post-op assessment status post Left axillary sentinel node biopsy. Pt c/o; reports pain and discomfort, reports swelling, reports unable to sleep due to pain, denies redness or hot to the touch sensation. Manager [employer] Systems Required: No Accompanied by: Self / Same As Patient Allergies amoxicillin (AMOXICILLIN) Allergy (Intermediate, Verified 08/11/25 08:32) rash, rash/itching sulfamethoxazole (From BACTRIM) Allergy (Intermediate, Verified 08/11/25 08:32) RASH trimethoprim (From BACTRIM) Allergy (Intermediate, Verified 08/11/25 08:32) RASH hydrocodone (Hydrocodone) Allergy (Mild, Verified 08/11/25 08:32) ITCH ibuprofen (From Motrin) Allergy (Mild, Verified 08/11/25 08:32) UPSET STOMACH latex (Latex) Allergy (Mild, Verified 08/11/25 08:32) ITCH Medication List - Last Reconciled 08/11/25 by Aaron Pringle MD [ACL defiance brace n/a] albuterol sulfate 90 mcg/actuation 2 puffs inhalation Q4H PRN albuterol sulfate 2.5 mg (3 mL) inhalation Q4-6H PRN allopurinol 100 mg PO BID cetirizine 10 mg PO DAILY PRN cholecalciferol (vitamin D3) (Vitamin D3) 1 cap PO DAILY diphenhydramine-zinc acetate 1-0.1 % (Benadryl Itch Stopping) 1 appl topical BID docusate sodium 100 mg PO BEDTIME fluticasone propion-salmeterol 115-21 mcg/actuation (Advair HFA) 2 puffs inhalation Q12H furosemide 40 mg See Protocol PO DAILY hydrocortisone 2.5% (Proctosol HC) 1 appl MI BID-QID PRN lorazepam 1 mg PO DAILY PRN losartan 25 mg See Protocol PO BID magnesium oxide 400 mg PO BIDPC 30 days methylcellulose (laxative) (Citrucel) 500 mg PO DAILY metoprolol succinate ER 50 mg PO BID multivitamin 1 tab PO DAILY omeprazole 1 cap PO DAILY@0630 thiamine HCl (vitamin B1) 1 tab PO DAILY HPI Comments Details: 49-year-old female patient recently diagnosed with a left breast invasive ductal carcinoma, grade 1, 6 mm in size, ER/MI positive, HER2 Shashank negative, Ki-67 low. She underwent lumpectomy for an apparent atypical ductal hyperplasia but subsequently was diagnosed with invasive ductal carcinoma. She was therefore brought back to the OR on 07/27/2025 for a sentinel node biopsy. One sentinel node was identified with isolated tumor cells (pT1b N0 (i+)). She reports soreness in the left axilla and is concerned about infection in the incision. She denies any bleeding or discharge. [facility]LY [facility] Medical History Asthma GERD (gastroesophageal reflux disease) CKD (chronic kidney disease) Anemia Cardiomyopathy Gout Pulmonary nodule Arthritis Fibromyalgia Anxiety and depression Lower back pain Panic attack H/O ETOH abuse Breast cancer Hypertension Surgical History Hx of surgical biopsy (07/27/25) History of lumpectomy of left breast (06/28/25) Hx of knee surgery Hx of right mastectomy H/O colonoscopy History of carpal tunnel release Hx of tubal ligation History of breast lump/mass excision H/O: hysterectomy Family History Mother Heart disease Alzheimers disease Father Heart disease Brother Asthma Heart disease Social History Household Members: None Housing: Apartment Housing Other:: 4th floor. No elevator Are you a primary director of patient care to a significant other at home: No Do you presently have visiting nurse or other home services: No Alcohol intake: current Alcohol intake frequency: holidays/special occasions only Alcohol type: hard liquor Comment: counts correct Patient Tobacco Use Status: Current everyday Tobacco user Tobacco use type: Cigarette Cigarettes Per Day: 5 Years Smoked: 38YRS e-Cigarette/Vaping Use: Never Used Second Hand Smoke Exposure: Yes Advance Directives Date on File: 02/11/22 service: No Current occupational status: disabled Gender identity: Female Female Reproductive History Menstrual Age of Menarche: 7 Review of Systems Const All systems reviewed & are unremarkable except as noted in HPI and below Physical Exam Vital Signs: BMI result Body Mass Index 30.1 Const General: no acute distress and anxious Chest Other: Left axillary incision is clean, dry, and intact without palpable seroma or hematoma. No evidence of wound infection, bleeding or discharge. Chest/axillae images: 2 1. Incision left axilla Resp Effort & Inspection: normal respiratory effort GI Inspection: Yes normal to inspection Neuro Other: Mobility Assessment: 1. 3 meter assessment time (seconds):5 2. Gait observations: Normal balance and gait Extrem General: Yes no clubbing, cyanosis or edema Assessment & Plan Assessment & Plan (1) Invasive ductal carcinoma of left breast: Code(s): C50.912 - Malignant neoplasm of unspecified site of left female breast Category: Medical Plan 49-year-old female patient with left breast invasive ductal carcinoma status post lumpectomy and sentinel node biopsy. [place] node biopsy revealed isolated tumor cells in 1 of 1 nodes. She was evaluated by Dr. Grande and arrangements made for radiation therapy at [facility]. She will follow-up in 1 month for wound examination. Coding Level of Care Code Global (85449) Diagnoses Invasive ductal carcinoma of left breast C50.912
== END 2025-08-11 08:37 | disposition home or self-care (01) ==
LOC: HO.HGS 08:18
PROVIDERS: PCP Family Medicine; Visit Provider Surgery
DX: C50.912 Malignant neoplasm of unspecified site of left female breast (principal)
CPT/HCPCS: 99024

== ENCOUNTER → 2025-08-11 08:18 | Outpatient (BNVA) | payer MEDICAID, SELFPAY | PROVIDERS: PCP Family Medicine; Visit Provider Surgery | DX: Z71.2 Person consulting for explanation of examination or test findings (principal); C50.912 Malignant neoplasm of unspecified site of left female breast | CPT/HCPCS: 99212 ==

== ENCOUNTER 2025-08-25 12:09 | Emergency (ER) | payer MEDICAID, SELFPAY ==
--- OUTSIDE RECORDS SUMMARY | 2025-08-24 13:00 | XMS_ITS | Encounter Summary ---
Author Organization [facility] Address [address] [place] [address] Care Team Providers Care Production Line Technician Name Role Phone Shereen Latham MD Primary Care Provider [phone] Reason for Visit * Reason Comments Foot Pain Global Manager callus corns * Consultation (Routine) - Authorized Specialty Diagnoses / Procedures Referred By Contanna t Referred To Contact Podiatry / Orthopaedic Surgery Diagnoses Corns and callosities Shereen Latham MD [address] [place] [phone] Phone: tel: fax: Antony Garrett DPM [address] [address] Phone: tel: fax: Referral ID Status Reason Start Date Expiration Date Visits Requested Visits Authorized [id number] Authorized Specialty Services Required 05/24/2025 05/24/2026 6 6 Encounter Details Date Type Department Care Team ([facility] st Contact Info) Description 08/24/2025 1:00 PM EDT Consult Orthopedic Surgery - [place] [address] [address] Antony Garrett DPM [address] [address] Pain in both feet (Primary Dx); Lumbosacral radiculopathy; Metatarsalgia of left foot; Ingrown right big toenail Social History Tobacco Use Types Packs/Day Years Used Date Smoking Tobacco: Never Smokeless Tobacco: Never Comments Unknown Sex and Gender Information Value Date Recorded Sex Assigned at Not on file Legal Sex Female 9:51 AM EST Gender Identity Not on file Sexual Orientation Not on file documented as of this encounter Functional Status * Are you deaf or do you have serious difficulty hearing? Answer Date of Assessment Author No 08/13/2025 3:53 PM Shilpi Sotelo RN * Are you blind or do you have serious difficulty seeing, even when wearing glasses? Answer Date of Assessment Author No 08/13/2025 3:53 PM EDShilpi Pizano RN * Do you have serious difficulty walking or climbing stairs? Answer Date of Assessment Author No 08/13/2025 3:53 PM Shilpi Sotelo RN * Do you have serious difficulty dressing or bathing? Answer Date of Assessment Author No 08/13/2025 3:53 PM Shilpi Sotleo RN * Because of a physical, mental, or emotional condition, do you have serious difficulty doing errandsalone such as visiting the doctor? Answer Date of Assessment Author No 08/13/2025 3:53 PM Shilpi Sotelo RN documented as of this encounter Mental Status * Because of a physical, mental, or emotional condition, do you have serious difficulty concentrating, remembering, or making decisions? (5 years old or older) Answer Entry Date Author No 08/13/2025 3:53 PM Shilpi Sotelo RN documented in this encounter Progress Notes * Antony Garrett DPM - 08/24/2025 1:00 PM EDT Referring MD: Shereen Latham MD Last PCP visit: 07/20/2025 IDENTIFIER: Segun is a 49 y.o. year old female who presents for consultation. CC: Bilateral foot pain HPI: 49-year-old female with fibromyalgia notes that she has severe tenderness to the foot that is diffuse and difficult to palpate. Patient notes that it is burning and tingling throughout the feet. Patient denies any recent trauma. Patient relates that she has been having severe pain to the lateral border of bilateral great toes and is concerned with an ingrown. ROS: GENERAL: Pt denies nausea, fever, vomiting, chills, or shortness of breath. Pt in NAD. CARDIOLOGY: pt denies chest pain, palpitations LUNGS: pt denies shortness of breath MUSCULOSKELETAL: See HPI, otherwise no joint pain or swelling, back pain, or muscle pain. SKIN: see HPI, otherwise no lesions, rash or itching NEURO: No persistent headache, weakness or numbness The remainder of the review of systems is noncontributory PAST MEDICAL HISTORY: Problem List[1] SOCIAL HISTORY: Social History Tobacco Use Smoking status: Never Smokeless tobacco: Never Substance Use Topics Alcohol use: Not on file ACTIVE MEDICATIONS: Medications Taking[2] ALLERGIES: Amoxicillin, Bactrim [sulfamethoxazole-trimethoprim], Hydrocodone, Latex, and Motrin [ibuprofen] PHYSICAL EXAM: There were no vitals taken for this visit. PODIATRIC EXAMINATION: GENERAL: Patient appears well nourished, with NAD. VASCULAR: Dorsalis pedis pulses are 2/4 bilaterally and Posterior tibial pulses are 2/4 bilaterally. Capillary filling time within normal limits the digits. No pallor on elevation or rubor on dependency. Positive hair growth. No varicosities. Denies rest pain or claudication pain. NEUROLOGICAL: Sharp/dull sensation intact, protective sensation intact on Momence. Peripheral neuropathy throughout the feet bilaterally ORTHOPEDIC: Good muscle strength 5/5 of all flexors and extensors. Dorsi flexion of ankle ,10 degrees, plantar flexion WNL. No muscle atrophy. Flexible flatfoot deformity bilaterally with collapse ofthe midfoot. Contractures of digits 2 through 5 which are semireducible DERMATOLOGICAL:.No masses or skin lesions noted. Normal skin temperature, normal skin turgor. Nailsare thickened misshapened x 10 with subungual debris. Ingrowth to the lateral border of bilateral great toes with tenderness to the touch and redness and swelling BIOMECHANICS: STJ ROM wnl, MTJ ROM wnl, 1st MPJ ROM wnl. IMPRESSION: 1. Pain in both feet 2. Lumbosacral radiculopathy 3. Metatarsalgia of left foot 4. Ingrown right big toenail PLAN: Pt was seen and examined, history reviewed. Patient was educated that she has a history of fibromyalgia and the pain she is describing is tingling burning sensations within the feet. Patient understands that this is nerve related and she should have follow-up with a electronic assembly for further workup of her lower back as this can be a main causeof bilateral foot burning without history of diabetes patient understands symptomatic treatment caninclude menthol topical Patient was educated that she has ingrowth to the lateral borders. Patient was offered matrixectomybut she declined. Patient was instructed to use conservative therapy including soaking exercises and topical antibiotic dressings for the next 2 weeks and to return at that time for possible matrixectomy if it has not resolved Antony Garrett DPM [1] There is no problem list on file for this patient. [2] No outpatient medications have been marked as taking for the 08/24/25 encounter (Consult) with Ta Garrett DPM. documented in this encounter Plan of Treatment Upcoming Encounters Date Type Department Care Team ([facility] st Contact Info) Description 08/31/2025 12:30 PM EDT Appointment [facility] Radiation Oncology [address] [place] [phone] 08/31/2025 1:00 PM EDT Appointment [facility] Radiation Oncology [address] [place] [address] Pal Ureña MD [address] [place] [address] 09/14/2025 3:00 PM EST Procedure visit Orthopedic Surgery - [place] [address] [address] Antony Garrett DPM [address] [address] documented as of this encounter Visit Diagnoses Diagnosis Pain in both feet- Primary Lumbosacral radiculopathy Thoracic or lumbosacral neuritis or radiculitis, unspecified Metatarsalgia of left foot Ingrown right big toenail Ingrowing nail documented in this encounter Orders Outpatient Referral Count Last Ordered Date Fir st Ordered Date AMB REFERRAL TO PODIATRY 1 08/24/2025 documented in this encounter Care Teams Production Line Technician Relationship Specialty Start Date End Date Shereen Latham MD [address] [address] PCP - General 01/13/1996 documented as of this encounter
--- NOTE | ~2025-08-25 | CT_ITS ---
EXAMINATION: CT HEAD WITHOUT IV CONTRAST HISTORY: headache. TECHNIQUE: Unenhanced helical CT of the head was performed per standard departmental protocol. Coronal and sagittal reformats of the head were also evaluated. One or more of the following techniques was used for dose reduction: Automated exposure control, adjustment of the mA and/or kV according to patient size, use of iterative reconstruction technique. DLP: 712 mGy-cm COMPARISON: Previous head CT August 2020 FINDINGS: BRAIN: The brain parenchyma is unremarkable. There is normal mello/white differentiation. The ventricular system is normal in size and configuration. There is no mass effect or midline shift. No intra- or extra-axial fluid collections are identified. SINUSES: The visualized paranasal sinuses are clear. The mastoid air cells and middle ear cavities are well pneumatized. ORBITS: The visualized orbits are unremarkable. BONES/SOFT TISSUES: The extracranial soft tissues are unremarkable. The calvarium is intact. No suspicious lytic or sclerotic lesions. CT/CT head/brain wo IV con IMPRESSION: No acute intracranial abnormality. Electronically signed by: Chandrika Garg MD 08/25/2025 03:50 PM EDT RP
--- OUTSIDE RECORDS SUMMARY | 2025-08-25 11:00 | XMS_ITS | Encounter Summary ---
Author Organization [email or web address] Address [address] [facility] [address] [place] [address] Care Team Providers Care Card Processing Clerk Name Role Phone Frankford, Shereen NOLASCO Primary Care Provider [phone] Sury Benitez Unavailable [phone] Nirali Madrid OD Unavailable Li Grande MD Unavailable [phone] Anselmo Gates MD Unavailable Margaret Holman Unavailable Herberth Stokes MD Unavailable [phone] Hilton Palacios MD Unavailable Aaron Pringle MD Unavailable [phone] Ronda Rodríguez Unavailable Reason for Visit * Reason Comments Hypertension Encounter Details Date Type Department Care Team (Late st Contact Info) Description 08/25/2025 11:00 AM EDT Office Visit [facility] [address] [place], [place] [phone] Barrington Allan MD [address] [place], [place] [phone] Prolonged QT syndrome (Primary Dx); Invasive ductal carcinoma of left breast (CMS/HCC) (HCC); Complex care coordination; Palpitations with regular cardiac rhythm; Chronic heart failure with preserved ejection fraction (HFpEF) (HCC); Hypomagnesemia Social History Tobacco Use Types Packs/Day [...] t he electric, gas, oil or water [employer] threatened to shut off services in [...] Sign Reading Time Taken Comments Blood Pressure 162/98 08/25/2025 10:43 AM EDT Pulse 108 08/25/2025 10:43 AM EDT Temperature 36.4 C (97.6 F) 08/25/2025 10:43 AM EDT Respiratory Rate 17 08/25/2025 10:43 AM EDT Oxygen Saturation 98% 08/25/2025 10:43 AM EDT Inhaled Oxygen Concentration - - Weight - - Height - - Body Mass Index - - documented in this encounter Progress Notes * Barrington Allan MD - 08/25/2025 11:00 AM EDT SUBJECTIVE: Azra Cast is a 49 y.o. female who presents for acute visit. Denies recent illness, ER visit,or hospitalization. Acute Concerns: Azra is a 49yo F with PMH of sinus tachycardia, palpitations, hypertension, HFpEF, CKD3, DCIS ofL breast, severe depression, PTSD, cocaine use in remission, alcohol use disorder, tobacco use disorder who presents with high blood pressure, headache, feeling tired and hyper at the same time sincethis morning. She has not taken her BP medications yet this morning. She was seen in the ER at [facility] 08/13/25 with low magnesium of 1.4 and Qtc prolongation and shortness of breath and elevated D-dimer. Her EKG today shows long QT (Qtc of 526). High lateral repol, and VR of 98 Patient Active Problem List Diagnosis Date Noted Abnormal MRI, breast 08/25/2025 Anal fissure 08/25/2025 Bilateral chronic serous otitis media 08/25/2025 Chest discomfort 08/25/2025 Daytime somnolence 08/25/2025 Invasive ductal carcinoma of left breast (CMS/HCC) (HCC) 08/25/2025 Joint pain 08/25/2025 Non-restorative sleep 08/25/2025 Sinus tachycardia 08/25/2025 Prolonged QT syndrome 08/25/2025 Bilateral hand pain 07/22/2025 Sebaceous cyst of labia 06/08/2025 Class 1 obesity due to excess calories with serious comorbidity and body mass index (BMI) of 31.0 to 31.9 in adult 05/24/2025 Ductal hyperplasia of breast 05/24/2025 Abnormal mammogram 04/26/2025 Cardiomyopathy (HCC) 04/04/2025 Multiple pulmonary nodules 04/04/2025 Atrial tachycardia (CMS/HCC) 03/01/2025 Occipital neuralgia 02/06/2025 Gout 07/13/2024 Tubular adenoma 07/12/2024 Hydradenitis 06/29/2024 (HFpEF) heart failure with preserved ejection fraction (HCC) 06/29/2024 Cardiac risk counseling 02/24/2024 Iron deficiency anemia 01/11/2024 Mild reactive airways disease 01/11/2024 Osteoarthritis of right knee 01/11/2024 Complex care coordination 01/11/2024 Generalized anxiety disorder with panic attacks 11/24/2023 Stage 3 chronic kidney disease (CMS/HCC) ([facility]) 07/20/2023 Pain in both feet 07/14/2023 Chronic GERD 05/26/2023 Cocaine use disorder in remission 05/26/2023 Post traumatic stress disorder (PTSD) 05/26/2023 Palpitations with regular cardiac rhythm 05/26/2023 Primary osteoarthritis of both knees 11/16/2022 Fibromyalgia 11/16/2022 Transaminitis 11/16/2022 Benign essential hypertension 12/13/2021 Alcohol use disorder, moderate, dependence (CMS/HCC) ([facility]) 12/12/2021 Allergic rhinitis 12/12/2021 Bilateral malignant neoplasm of breast in female (CMS/HCC) ([facility]) 12/12/2021 Vitamin D deficiency 12/12/2021 Atypical glandular cells on cervical Pap smear 09/14/2014 Severe episode of recurrent major depressive disorder, with psychotic features (CMS/HCC) ([facility]) 04/19/2014 Carpal tunnel syndrome 03/23/2014 Tobacco dependence syndrome 03/23/2014 Anemia 07/29/2023 Peripheral neuropathy 07/22/2023 Hypomagnesemia 07/22/2023 Other specified health status 07/20/2023 Surgical History[1] Social History Social History Narrative Not on file Review of Systems Constitutional: Positive for fatigue. Respiratory: Negative. Cardiovascular: Positive for palpitations. Neurological: Positive for headaches. OBJECTIVE: Vitals: 08/25/25 1043 BP: (!) 162/98 BP Location: Right arm Patient Position: Sitting BP Cuff Size: Adult Pulse: 108 Resp: 17 Temp: 97.6 ??F (36.4 ??C) TempSrc: Oral SpO2: 98% Physical Exam Vitals reviewed. Constitutional: Appearance: Normal appearance. HENT: Head: Normocephalic and atraumatic. Cardiovascular: Rate and Rhythm: Normal rate and regular rhythm. Pulses: Normal pulses. Heart sounds: Normal heart sounds. Pulmonary: Effort: Pulmonary effort is normal. Breath sounds: Normal breath sounds. Skin: General: Skin is warm and dry. Neurological: General: No focal deficit present. Mental Status: She is alert and oriented to person, place, and time. Psychiatric: Mood and Affect: Mood normal. Behavior: Behavior normal. ASSESSMENT/PLAN Problem List Items Addressed This Visit Palpitations with regular cardiac rhythm Hypomagnesemia Overview Received magnesium IV in ER -Dose increased [...] tablet 11/09/24 -ordered repeat labs 12/29/24, normal Current Assessment & Plan Pt says she is taking Mag-ox 4 times daily Would recommend that she consider stopping omeprazole as furosemide is needed for her HF treatment Complex care coordination Overview -Has MATERIALS PLANNING ANALYST services with [facility] -She is applying [facility] 01/11/2024 -In our [facility] complex care management program -referred to CB on 01/04/2024 -Messaged sent to [facility] professional healthcare representative for assistance in care visits (HFpEF) heart failure with preserved ejection fraction (HCC) Overview -Echocardiogram done 10/18/2021 had shown EF 30-35%, mild LVH. follow-up after that finding. A stress test at that time was incomplete. -Dx with acute congestive heart failure with reduced EF during admission to [facility] 06/22/24. - She was started on Lasix [...] effusion and indeterminate diastolic function -Seen by [facility] 08/01/24 : exercise nuclear stress test [...] again until 07/2024. Last echo 06/23/2024 during [facility] heart failureadmission, showed EF 55-60%, small loculated effusion over [...] Cardiology follow-up 6 months, sooner if needed Invasive ductal carcinoma of left breast (CMS/HCC) (HCC) Prolonged QT syndrome - Primary Current Assessment & Plan Recommend that patient have ER evaluation and immediate repletion of Mg, as well as monitoring of Qtc, consideration of admission, rule out NSTEMI She is not excited about going to the ER but understands why it is important based on the low Mg and EKG findings Relevant Orders ECG 12 lead (Completed) Follow Up: per PCP recall or sooner prn Allergies[2] Current Medications[3] English Translation: Patient is bilingual and declines translation services [1] Past Surgical History: Procedure Laterality Date BI MAMMO GUIDED BREAST LOCALIZATION LEFT Left 06/14/2025 MM RF TAG DEVICE ADD BI MAMMO GUIDED BREAST LOCALIZATION LEFT Left 06/14/2025 MM RF TAG DEVICE LT BI MR GUIDED BREAST BIOPSY LEFT Left 05/19/2025 BI MR GUIDED BREAST BIOPSY LEFT BI MR GUIDED BREAST BIOPSY LEFT Left 06/07/2025 BI MR GUIDED BREAST BIOPSY LEFT BI STEREOTACTIC GUIDED BREAST LOCALIZATION AND BIOPSY LEFT Left 03/13/2025 BI STEREOTACTIC GUIDED BREAST LOCALIZATION AND BIOPSY LEFT HYSTERECTOMY [2] Allergies Allergen Reactions Amoxicillin Hives and Itching Other reaction(s): itchy, red skin Other Reaction(s): rash, rash/itching Sulfamethoxazole Rash Trimethoprim Hives, Itching and Rash Hydrocodone Hives and Itching Latex Hives and Itching Other reaction(s): itching [3] Current Outpatient Medications: clonazePAM (KlonoPIN) 0.5 MG tablet, TAKE 1 TABLET BY MOUTH EVERY DAY NEEDED PANIC ATTACK, Disp:, Rfl: doxycycline (Vibramycin) 100 MG capsule, TAKE 1 CAPSULE BY MOUTH TWICE A DAY FOR 7 DAYS WITH FULL GLASS OF WATER DO NOT LIE DOWN FOR 30 MINS, Disp: , Rfl: Fiber-Lax 625 MG tablet, TAKE 1 TABLET BY MOUTH EVERY DAY WITH A FULL GLASS OF WATER, Disp: , Rfl: Acetaminophen Extra Strength 500 MG tablet, TAKE 1 TABLET BY MOUTH EVERY 6 TO 8 HOURS NEEDED FORPAIN OR FEVER, Disp: 60 tablet, Rfl: 0 allopurinol (Zyloprim) 100 MG tablet, Take 1 tablet (100 mg) by mouth 2 times daily., Disp: 180 tablet, Rfl: 3 cetirizine (ZyrTEC) 10 MG tablet, TAKE 1 TABLET BY MOUTH EVERY DAY NEEDED FOR ALLERGIES, Disp: 90 tablet, Rfl: 3 D3-1000 25 MCG (1000 UT) capsule, TAKE 1 CAPSULE BY MOUTH EVERY MORNING, Disp: 90 capsule, Rfl: 3 Diclofenac Sodium 1 % gel, Apply 1 Application topically if needed each day (bullock pain)., Disp: 50 g, Rfl: 0 fluticasone-salmeterol (Advair) 115-21 MCG/ACT inhaler, Inhale 2 puffs in the morning and at bedtime. Rinse mouth with water after use to reduce aftertaste and incidence of candidiasis. Do not swallow., Disp: , Rfl: furosemide (Lasix) 40 MG tablet, TAKE 1 TABLET BY MOUTH EVERY MORNING, Disp: 90 tablet, Rfl: 1 lidocaine (Lidoderm) 5 % patch, APPLY 1 PATCH TOPICALLY TO SKIN, LEAVE ON FOR 12 HOURS AND OFF FOR 12 HOURS DIRECTED NEEDED FOR PAIN, Disp: 30 patch, Rfl: 3 LORazepam (Ativan) 1 MG tablet, Take 1 mg by mouth if needed each day for anxiety., Disp: , Rfl: losartan (Cozaar) 25 MG tablet, TAKE 1 TABLET BY MOUTH TWICE DAILY IN THE MORNING AND IN THE EVENING, Disp: 180 tablet, Rfl: 3 magnesium oxide (Mag-Ox) 400 MG tablet, TAKE 1 TABLET BY MOUTH THREE QID, Disp: 360 tablet, Rfl: 3 metoprolol succinate XL (Toprol-XL) 50 MG 24 hr tablet, Take 50 mg by mouth in the morning and 50 mg in the evening. Do not crush or chew., Disp: , Rfl: mometasone (Nasonex) 50 MCG/ACT nasal spray, Administer 2 sprays into each nostril Once per day for14 days., Disp: 17 g, Rfl: 0 omeprazole (PriLOSEC) [address] capsule, TAKE 1 CAPSULE BY MOUTH EVERY MORNING BEFORE BREAKFAST, Disp: 90 capsule, Rfl: 3 sodium chloride (Horry) 0.65 % nasal spray, Administer 1 spray into each nostril if needed for congestion., Disp: 15 mL, Rfl: 11 Spacer/Aero-Holding Chambers (AeroChamber MV) inhaler, Use as instructed, Disp: 1 each, Rfl: 2 Ventolin HFA 108 (90 Base) MCG/ACT inhaler, INHALE 2 PUFFS FOUR TIMES DAILY NEEDED FOR SHORTNESSOF BREATH, Disp: 18 g, Rfl: 0 documented in this encounter Miscellaneous Notes * Assessment & Plan Note - Barrington Allan MD - 08/25/2025 4:05 PM EDTAssociated Problem(s): Prolonged QT syndrome Recommend that patient have ER evaluation and immediate repletion of Mg, as well as monitoring of Qtc, consideration of admission, rule out NSTEMI She is not excited about going to the ER but understands why it is important based on the low Mg and EKG findings * Assessment & Plan Note - Barrington Allan MD - 08/25/2025 4:03 PM EDTAssociated Problem(s): Hypomagnesemia Pt says she is taking Mag-ox 4 times daily Would recommend that she consider stopping omeprazole as furosemide is needed for her HF treatment * Addendum Note - Barrington Allan MD - 08/25/2025 11:00 AM EDTAddended by: BARRINGTON ALLAN on: 08/25/2025 04:08 PM Modules accepted: Orders documented in this encounter Plan of Treatment Upcoming Encounters Date Type Department Care Team (Late st Contact Info) Description 09/13/2025 3:15 PM EST Office Visit [facility] [address] [place] [address] Shereen Latham MD [address] [place] [address] documented as of this encounter Procedures Procedure Name Priority Date/Time Associated Diagnosis Comments ECG 12-LEAD Routine 08/25/2025 3:59 PM EDT Prolonged QT syndrome documented in this encounter Results * ECG 12 lead (08/25/2025 3:59 PM EDT) Narrative Barrington Allan MD - 08/25/2025 3:59 PM EDT Qtc 526, VR 98, minimal high-lateral repolarization Barrington Allan MD ECG ORDERABLES Final Result documented in this encounter Visit Diagnoses Diagnosis Prolonged QT syndrome- Primary Long QT syndrome Invasive ductal carcinoma of left breast (CMS/HCC) ([facility]) Complex care coordination Palpitations with regular cardiac rhythm Chronic heart failure with preserved ejection fraction (HFpEF) (HCC) Hypomagnesemia Disorders of magnesium metabolism documented in this encounter Additional Health Concerns Assessment Noted Time PHQ-9 Depression Total Score: 21 025 11:03 AM EDT documented as of this encounter Care Teams Card Processing Clerk Relationship Specialty Start Date End Date Shereen Latham MD [address] [place] [address] PCP - General Family Medicine 11/02/18 Sury Benitez [address] [place] [address] [address] [place] [address] Pulmonary Disease 09/27/24 Nirali Madrid OD [address] [place] [address] Optometry 10/27/24 Li Grande MD [address] [place] [address] Hematology and Oncology 10/27/24 Anselmo Gates MD [address] [place] [address] Orthopaedic Surgery 10/27/24 Margaret Holman [address] [place] [address] Cardiology 10/27/24 Herberth Stokes MD [address] [place] [address] Gastroenterology 10/27/24 Hilton Palacios MD [address] [facility], [address] [place] [address] Neurology 02/06/25 Aaron Pringle MD [address] [facility] [address] [place] [address] General Surgery 03/07/25 Ronda Rodríguez [address] [place] [address] Obstetrics and Gynecology 08/02/25 Pily Delaney [employer] TeacherBelt Dresser 07/22/24 Elie Vicky [facility] Psychology 12/29/24 documented as of this encounter
--- NOTE | 2025-08-25 12:15 | ECG_ITS ---
Test Reason : check qtc Blood Pressure : */* mmHG Vent. Rate : 108 BPM Atrial Rate : 108 BPM P-R Int : 154 ms QRS Dur : 74 ms QT Int : 352 ms P-R-T Axes : 62 -17 72 degrees QTcB Int : 471 ms Sinus tachycardia Minimal voltage criteria for LVH, may be normal variant ( R in aVL ) Cannot rule out Anterior infarct , age undetermined Abnormal ECG When compared with ECG of 14-Jun-2025 13:06, No significant change was found Referred By: Generic ED Physician Electronically Signed By: KENNEDI BOURGEOIS MD
[2025-08-25 12:30] VITALS: BP 130/77; PULSE 105; RESP 18; TEMP 36.4; O2SAT 98; BMI 30.8
--- NOTE | 2025-08-25 12:30 | ED_ITS ---
HPI - Chest Pain General Chief Complaint: General Medical Stated Complaint: Heart Problems, High Blood Pressure Time Seen by Provider: 08/25/25 15:06 Source: patient and old records reviewed Mode of arrival: ambulatory Limitations: no limitations History of Present Illness ED Provider: WILDER HPI narrative: 49 yo female with PMH of HTN, alcohol use disorder, cardiomyopathy, hypomagnesemia, anemia, breast cancer currently going to [facility] for XRT just seen Dr. Grande from oncology, she comes in today with c/o headaches at rest yesterday her BP was checked it was higher than usual. She denies numbness, weakness. She notes no falls, no vomiting. She started to have some anxiety. Headache started at rest. She has hx of low magnesium. She denies fevers, vision changes, neck pain. She notes on arrival her BP was better here. She has been compliant with medications. Her HR is always up and they continue to increase her metoprolol. She has no leg swelling, travel, she denies any new CP/SOB. MD complaint: other (headaches) Related Data Home Medications ?Medication ?Instructions ?Recorded ?Confirmed omeprazole 20 mg capsule,delayed 1 cap PO DAILY@0630 1 11/30/20 08/11/25 release thiamine HCl (vitamin B1) 100 mg 1 tab PO DAILY 08/11/25 tablet cholecalciferol (vitamin D3) 25 1 cap PO DAILY 2 08/11/25 mcg (1,000 unit) capsule (Vitamin D3) cetirizine 10 mg tablet 10 mg PO DAILY PRN allergies 04/10/24 08/11/25 albuterol sulfate 90 mcg/actuation 2 puff inhalation Q 4H PRN 07/25/24 08/11/25 aerosol inhaler shortness of breath or wheez ing allopurinol 100 mg tablet 100 mg PO BID 01/19/2508/11 lorazepam 1 mg tablet 1 mg PO DAILY PRN anxiety at tack 06/07/25 08/11/25 multivitamin 1 tab PO DAILY 06/28/2508/02 Previous Rx's ?Medication ?Instructions ?Recorded ACL defiance brace #1 ea 07/29/21 magnesium oxide 400 mg (241.3 mg 400 mg PO BIDPC 30 da ys #60 tabs 10/02/21 magnesium) tablet furosemide 40 mg tablet 40 mg PO DAILY #30 tabs 06/03 01/23 losartan 25 mg tablet 25 mg PO BID #60 tabs fluticasone propionate 115 2 puff inhalation Q12H #12 grams 04/11/25 mcg-salmeterol 21 mcg/actuation HFA inhaler (Advair HFA) docusate sodium 100 mg capsule 100 mg PO BEDTIME #90 c aps 06/07/25 hydrocortisone 2.5 % topical cream 1 appl FL BID-QID P RN hemorrhoids 06/07/25 with perineal applicator #30 grams (Proctosol HC) methylcellulose (laxative) 500 mg 500 mg PO DAILY #90 tabs 06/07/25 tablet (Citrucel) metoprolol succinate 50 mg 50 mg PO BID #60 tabs 06/20 tablet,extended release 24 hr diphenhydramine-zinc acetate 1 1 appl topical BID #28. 3 grams 07/04/25 %-0.1 % topical cream (Benadryl Itch Stopping) albuterol sulfate 2.5 mg/3 mL 2.5 mg (3 mL) inhalation Q4-6H PRN 07/28/25 (0.083 %) solution for nebulization for wheezing #75 m L magnesium oxide 400 mg PO BID 3 days #6 caps 08/25/25 Allergies Allergy/AdvReac Type Severity Reaction Status Date / Time amoxicillin (AMOXICILLIN) Allergy Intermediate rash, Verified 08/25/25 12:33 rash/itching sulfamethoxazole (From Allergy Intermediate RASH Verified 08/25/25 12:33 BACTRIM) trimethoprim (From BACTRIM) Allergy Intermediate RASH Verified 08/25/25 12:33 hydrocodone (Hydrocodone) Allergy Mild ITCH Verified 08/25/25 12:33 ibuprofen (From Motrin) Allergy Mild UPSET Verified 08/25/25 12:33 STOMACH latex (Latex) Allergy Mild ITCH Verified 08/25/25 12:33 PMFSH Past Medical History Medical History Asthma GERD (gastroesophageal reflux disease) CKD (chronic kidney disease) Anemia Cardiomyopathy Gout Pulmonary nodule Arthritis Fibromyalgia Anxiety and depression Lower back pain Panic attack H/O ETOH abuse Breast cancer Hypertension Surgical History Hx of surgical biopsy (07/27/25) History of lumpectomy of left breast (06/28/25) Hx of knee surgery Hx of right mastectomy H/O colonoscopy History of carpal tunnel release Hx of tubal ligation History of breast lump/mass excision H/O: hysterectomy Family History Family History Mother Heart disease Alzheimers disease Father Heart disease Brother Asthma Heart disease Social History Social History Household Members: None Housing: Apartment Housing Other:: 4th floor. No elevator Are you a primary transitions rn care coordinator to a significant other at home: No Do you presently have visiting nurse or other home services: No Alcohol intake: current Alcohol intake frequency: holidays/special occasions only Alcohol type: hard liquor Comment: counts correct Patient Tobacco Use Status: Current everyday Tobacco user Tobacco use type: Cigarette Cigarettes Per Day: 5 Years Smoked: 38YRS Smoked in Last 30 Days: Yes e-Cigarette/Vaping Use: Never Used Second Hand Smoke Exposure: Yes Advance Directives: Yes Advance Directives on File: Yes Advance Directives Date on File: 02/11/22 Patient : No service: No Current occupational status: disabled Gender identity: Female Physical Exam 2 Vital Signs: Vital Signs: Last Vital Signs Temp 98.2 F 08/25/25 14:54 Pulse 101 H 08/25/25 14:54 Resp 16 08/25/25 14:54 BP 126/82 08/25/25 14:54 Pulse Ox 98 08/25/25 14:54 O2 Del Method Room Air 08/25/25 14:54 BMI result Body Mass Index 30.8 Course Course Course Narrative: 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 Deferred additional HPI, ROS, PE to primary provider. 49 yo female here from . Sent in for concern for elevated BP, prolonged QTC on EKG with recent ER visit for low MG. Patient reports feeling weak, palpitations, having headache since yesterday. Will obtain labs, EKG VSS Reevaluation(s) Reevaluation #1: her qtc is around baseline there are no new findings signed out to Dr. Forest Ordonez DO 08/25/25 1629 Medications Administered Generic Name Dose Route Start Last Admin Trade Name Freq PRN Reason Stop Dose Admin Magnesium Sulfate 2 gm in 50 mls @ 25 mls/hr 08/25/25 15:07 08/25/25 15:21 Magnesium Sulfate/H2o IV 08/25/25 17:06 25 mls/hr ONCE ONE Administration Discontinued Medications Generic Name Dose Route Start Last Admin Trade Name Freq PRN Reason Stop Dose Admin Lorazepam 1 mg 08/25/25 15:19 08/25/25 15:26 Lorazepam 1 Mg Tablet PO 08/25/25 15:20 1 mg ONCE ONE Administration Medical Decision Making Medical Decision Making MDM Narrative: 49 yo female with PMH of HTN, alcohol use disorder, cardiomyopathy, hypomagnesemia, anemia, breast cancer currently going to [facility] for XRT just seen Dr. Graned from oncology, she c/o palpitations, headache yesterday started at rest it is now better but she states it makes her nervous, and concern for her mag being low again. sent her for qt prolongation but here it is around her baseline. She has no CP/SOB to suggest ACS/VTE, review of her chart shows chronic tachycardia. Will obtain labs, imaging and if negative and she feels better she can be DC home. Differential Diagnosis Differential Diagnoses: The differential diagnosis associated with the presentation includes low magnesium, elevated BP, anxiety, intracranial mass - given breast ca will obtain imaging, dehydration Admission/Observation Consideration of admission/observation: Escalation of care including admission/observation considered feels better stable for DC Lab Data [facility] Lab Attestation statement: I reviewed the patient's lab results. 08/25/25 12:45 08/25/25 12:45 Labs: Lab Results 08/25/25 Range/Units 12:45 WBC 9.9 (4.8-10.8) X10*3/uL RBC 4.12 L (4.20-5.50) X10*6/uL Hgb 11.6 L (12.0-16.0) g/dl Hct 35.5 L (37.0-47.0) % MCV 86.2 (80.0-98.0) fL MCH 28.2 (27.0-33.0) pg MCHC 32.7 (31.0-35.0) g/dl RDW 14.3 (11.0-16.0) % Plt Count 304 (160-400) X10*3/uL MPV 9.9 (9.4-12.3) fL Immature Gran % (Auto) 0.3 (0.0-0.4) % Neut % (Auto) 64.4 (45-73) % Lymph % (Auto) 26.9 (20-40) % [place] % (Auto) 5.8 (2-11) % Eos % (Auto) 2.0 (0-4) % Baso % (Auto) 0.6 (0-2) % Lymph # (Auto) 2.7 (1.2-4.9) X10*3/uL [place] # (Auto) 0.6 (0.1-1.2) X10*3/uL Eos # (Auto) 0.2 (0.0-0.4) X10*3/uL Baso # (Auto) 0.1 (0.0-0.2) X10*3/uL Abs Immat Gran (auto) 0.03 (0.00-0.03) X10*3/uL Absolute Neuts (auto) 6.4 (2.0-8.3) x10*3/uL Absolute Nucleated RBC 0.000 (0.0-0.012) X10*3/uL Nucleated RBC % (auto) 0.0 (0.0-0.2) /100WBC Sodium 141 (135-145) mmol/L Potassium 3.9 (3.3-5.1) mmol/L Chloride 107 (96-108) mmol/L Carbon Dioxide 25 (22-29) mmol/L Anion Gap 13 (12-20) BUN 19 H (9-16) mg/dL Creatinine 0.89 (0.5-1.4) mg/dL Estim Creat Clear Calc 85.7 Estimated GFR > 60 Random Glucose 154 H (60-115) mg/dL Calcium 9.2 (8.4-10.2) mg/dL Magnesium 1.4 L* (1.6-2.6) mg/dL Total Bilirubin 0.3 (0.0-1.0) mg/dL Direct Bilirubin 0.1 (0.0-0.5) mg/dL AST 21 (5-31) U/L ALT 18 (0-31) U/L Alkaline Phosphatase 129 H (39-117) U/L Troponin I High Sens 12.2 (<3.5-17.0) ng/L Total Protein 7.1 (6.5-8.0) g/dL Albumin 4.3 (3.5-5.0) g/dL TSH 0.94 (0.32-4.0) uIU/mL Ethyl Alcohol 11 mg/dL Independent Interpretation I performed an independent interpretation of an: EKG and CT Scan (normal ) Interpretation: Rate: 108 Rhythm: sinus tachycardia [place]: left, LVH Normal P waves. Normal EDWIN. Normal QRS complex. ST T wave : inverted t waves aVL, no AUDI qTC: 471 prior studies: no sig change from priors The study has been interpreted contemporaneously by me. . Radiology Impression Discussion of test interpretation with radiology: I have reviewed the radiologist's reading. External Record Review External record reviewed: Inpatient record and Outpatient record Prescription Management I considered prescription management with: Other Discharge Plan Discharge Clinical Impression: Hypomagnesemia Acute tension headache Qualifiers: Intractability: not intractable Qualified Code(s): G44.209 - Tension-type headache, unspecified, not intractable Patient Disposition: Home, Self-Care Instructions: Acute Headache (ED), Hypomagnesemia (ED) Additional Instructions: magnesium 1.[address] head was normal baseline anemia 11.6 EKG unchanged rest and stay hydrated return for any worsening symptoms or concerns Prescriptions: New magnesium oxide 400 mg magnesium capsule 400 mg PO BID 3 Days Qty: 6 0RF No Action (DME) ACL defiance brace See Rx Instructions .ROUTE .MEDSUPPLY Qty: 1 0RF Rx Instructions: n/a fluticasone propion-salmeterol [Advair HFA] 115-21 mcg/actuation HFA aerosol inhaler 2 puff inhalation Q12H Qty: 12 3RF Benadryl Itch Stopping 1-0.1 % cream 1 appl topical BID Qty: 28.3 0RF albuterol sulfate 2.5 mg /3 mL (0.083 %) solution for nebulization 2.5 mg inhalation Q4-6H PRN (Reason: for wheezing) Qty: 75 0RF thiamine HCl (vitamin B1) 100 mg tablet 1 tab PO DAILY omeprazole 20 mg capsule,delayed release(DR/EC) 1 cap PO DAILY@0630 magnesium oxide 400 mg (241.3 mg magnesium) Tablet 400 mg PO BIDPC 30 Days Qty: 60 0RF cholecalciferol (vitamin D3) [Vitamin D3] 25 mcg (1,000 unit) capsule 1 cap PO DAILY furosemide 40 mg Tablet 40 mg PO DAILY Qty: 30 0RF Protocol: Hold for SBP< HOLD for SBP < : 90 losartan 25 mg Tablet 25 mg PO BID Qty: 60 0RF Protocol: Hold for SBP< HOLD for SBP < : 90 cetirizine 10 mg tablet 10 mg PO DAILY PRN (Reason: allergies) albuterol sulfate 90 mcg/actuation HFA aerosol inhaler 2 puff inhalation Q4H PRN (Reason: shortness of breath or wheezing) allopurinol 100 mg tablet 100 mg PO BID multivitamin Tablet 1 tab PO DAILY metoprolol succinate 50 mg tablet extended release 24 hr 50 mg PO BID Qty: 60 5RF Rx Instructions: dose increased lorazepam 1 mg tablet 1 mg PO DAILY PRN (Reason: anxiety attack) Citrucel 500 mg tablet 500 mg PO DAILY Qty: 90 2RF Rx Instructions: take it with full glass of water docusate sodium 100 mg capsule 100 mg PO BEDTIME Qty: 90 3RF hydrocortisone [Proctosol HC] 2.5 % cream with perineal applicator 1 appl FL BID-QID PRN (Reason: hemorrhoids) Qty: 30 2RF Print Language: Iraqi
[2025-08-25 12:53] LABS: MANUAL DIFF FLAG NO
[2025-08-25 12:56] LABS: Hematocrit 35.5 % (37.0-47.0); Hemoglobin 11.6 g/dl (12.0-16.0); Imm Gran Abs Auto 0.03 X10*3/uL (0.00-0.03); Imm Gran Pct Auto 0.3 % (0.0-0.4); Lymphocytes Absolute Auto 2.7 X10*3/uL (1.2-4.9); Mean Corpuscular HGB Conc 32.7 g/dl (31.0-35.0); Mean Corpuscular Hemoglobin 28.2 pg (27.0-33.0); Mean Corpuscular Volume 86.2 fL (80.0-98.0); NRBC Abs Auto 0.000 X10*3/uL (0.0-0.012); NRBC Pct Auto 0.0 /100WBC (0.0-0.2); Platelet Count 304 X10*3/uL (160-400); Red Blood Count 4.12 X10*6/uL (4.20-5.50); White Blood Count 9.9 X10*3/uL (4.8-10.8)
[2025-08-25 13:15] LABS: Troponin-I High Sensitivity 12.2 ng/L (<3.5-17.0)
[2025-08-25 13:21] LABS: Alanine Aminotransferase 18 U/L (0-31); Albumin Level 4.3 g/dL (3.5-5.0); Alkaline Phosphatase 129 U/L (39-117); Anion Gap 13 (12-20); Aspartate Amino Transferase 21 U/L (5-31); Blood Urea Nitrogen 19 mg/dL (9-16); Calcium 9.2 mg/dL (8.4-10.2); Carbon Dioxide 25 mmol/L (22-29); Chloride 107 mmol/L (96-108); Creatinine Clr Calc Pharmacy 85.7; Estimated Glomerular Filt Rate > 60; Magnesium 1.4 mg/dL (1.6-2.6); Potassium 3.9 mmol/L (3.3-5.1); Sodium 141 mmol/L (135-145); Total Protein 7.1 g/dL (6.5-8.0)
[2025-08-25 14:54] VITALS: BP 126/82; PULSE 101; RESP 16; TEMP 36.8; O2SAT 98
[2025-08-25] MEDS: Magnesium Sulfate/H2O 2 GM/50 ML PIGGYBACK IV (15:21)
--- OUTSIDE RECORDS SUMMARY | 2025-08-25 16:56 | XMS_ITS | Encounter Summary ---
Author Organization [employer] Address [address] [facility] 7 [place] [address] Care Team Providers Care Optometric Aide Name Role Phone Shereen Latham MD Primary Care Provider [phone] Nupur Bullock PharmD Unavailable [phone] Sury Benitez Unavailable [phone] JuliusLestern OD Unavailable Li Grande MD Unavailable Anselmo Gates MD Unavailable Margaret Holman Unavailable Herberth Stokes MD Unavailable [phone] Hilton Palacios MD Unavailable Aaron Pringle MD Unavailable [phone] Lori Batista Unavailable [phone] Neelima Raygoza Unavailable Ronda Rodríguez Unavailable [phone] Neelima Raygoza Unavailable Encounter Details Date Type Department Care Team (Late st Contact Info) Description 05/02/2024 Orders Only [facility] MEDICINE [address] [place], [place] [phone] Shereen Latham MD [address] [place] [address] Gout, unspecified cause, unspecified chronicity, unspecified site [...] Description 09/13/2025 3:15 PM EST Office Visit [facility] [address] [place] [address] Shereen Latham MD [address] [place] [address] documented as of this encounter Visit Diagnoses Diagnosis Gout, unspecified cause, unspecified chronicity, unspecified site- Primary documented in this encounter Additional Health Concerns Assessment Noted Time PHQ-9 Depression Total Score: 024 1:45 PM EDT documented as of this encounter Care Teams Optometric Aide Relationship Specialty Start Date End Date Shereen Latham MD [address] [place] [address] PCP - General Family Medicine 11/02/18 Nupur Bullock, CharleneD [address] [place] [address] Pharmacist Internal Medicine 08/09/24 05/15/25 Sury Benitez [address] [place] [address] Dr [facility] [address] [place] [address] Pulmonary Disease 09/27/24 Nirali Madrid OD [address] [place] [address] Optometry 10/27/24 Li Grande MD [address] [place] [address] Hematology and Oncology 10/27/24 Anselmo Gates MD [address] [facility] [address] [place] [address] Orthopaedic Surgery 10/27/24 Margaret Holman [address] [facility] 3rd [place] [address] Cardiology 10/27/24 Herberth Stokes MD [address] 3rd [place] [address] Gastroenterology 10/27/24 Hilton Palacios MD [address] [place] [address], [address] [place] [address] Neurology 02/06/25 Aaron Pringle MD [address] [place] [address] Drive [address] [place] [address] General Surgery 03/07/25 Lori Batista Registered Nurse 06/15/25 06/15/25 Neelima Raygoza 06/15/25 06/16/25 Ronda Rodríguez [address] [place] [address] [address] [place] [address] Obstetrics and Gynecology 08/02/25 Neelima Raygoaz 08/14/25 08/23/25 Pily Delaney Scrap PickerEnergy And Conservation Technician 07/22/24 Elie BRASHER [facility] Psychology 12/29/24 documented as of this encounter
--- OUTSIDE RECORDS SUMMARY | 2025-08-25 16:56 | XMS_ITS | Encounter Summary ---
Author Organization [employer] Address 75 [facility] 7 [place] [address] Care Team Providers Care Service Electrician Name Role Phone Noa, Shereen NOLASCO Primary Care Provider [phone] Nupur Bullock PharmD Unavailable Sury Benitez Unavailable [phone] Julius, Nirali OD Unavailable Li Grande MD Unavailable [phone] Anselmo Gates MD Unavailable Margaret Holman Unavailable Herberth Stokes MD Unavailable [phone] Hilton Palacios MD Unavailable Aaron Pringle MD Unavailable [phone] Lori Batista Unavailable [phone] Neelima Raygoza Unavailable Ronda Rodríguez Unavailable Neelima Raygoza Unavailable Encounter Details Date Type Department Care Team (Late st Contact Info) Description 04/26/2024 Orders Only [facility] MEDICINE [address] [place], [place] [phone] Junie Damon MD [address] [place] [address] Social History Tobacco Use Types Packs/Day Years [...] the past 12 months, has t he [employer], gas, oil or water [employer] threatened to shut off services in your [...] Description 09/13/2025 3:15 PM EST Office Visit [facility] MEDICINE [address] [place] [address] Shereen Latham MD [address] [place] [address] documented as of this encounter Visit Diagnoses Not on filedocumented in this encounter Additional Health Concerns Assessment Noted Time PHQ-9 Depression Total Score: 23 024 1:45 PM EDT documented as of this encounter Care Teams Service Electrician Relationship Specialty Start Date End Date Shereen Latham MD [address] [place] [address] PCP - General Family Medicine 11/02/18 Nupur Bullock, CharleneD [address] [place] [address] Pharmacist Internal Medicine 08/09/24 05/15/25 Sury Benitez [address] [facility] [address] [facility] 103 [place] [address] Pulmonary Disease 09/27/24 Nirali Madrid OD [address] [place] [address] Optometry 10/27/24 Li Grande MD [address] [place] [address] Hematology and Oncology 10/27/24 Anselmo Gates MD [address] [facility] [address] [place] [address] Orthopaedic Surgery 10/27/24 Margaret Holman 11 [facility] 3rd [place] [address] Cardiology 10/27/24 Herberth Stokes MD [address] [place] [address] Drive 3rd [place] [address] Gastroenterology 10/27/24 Hilton Palacios MD [address] [place] [address], [address] [place] [address] Neurology 02/06/25 Aaron Pringle MD [address] [place] [address] Drive 3rd [place] [address] General Surgery 03/07/25 Lori Batista Registered Nurse 06/15/25 06/15/25 Neelima Raygoza 06/15/25 06/16/25 Ronda Rodríguez [address] [place] [address] [address] [place] [address] Obstetrics and Gynecology 08/02/25 Neelima Raygoza 08/14/25 08/23/25 Pily Delaney Buffing Machine OperatorFood Dehydrator Operator 07/22/[address] [facility] Psychology 12/29/24 documented as of this encounter
--- OUTSIDE RECORDS SUMMARY | 2025-08-25 16:56 | XMS_ITS | Encounter Summary ---
Author Organization [employer] Address 75 [facility] 7 [place] [address] Care Team Providers Care Administrative Office Manager Name Role Phone Shereen Latham MD Primary Care Provider [phone] Nupur Bullock PharmD Unavailable Sury Benitez Unavailable [phone] JuliusLester castellanosn OD Unavailable Li Grande MD Unavailable [phone] Anselmo Gates MD Unavailable Margaret Holman Unavailable Herberth Stokes MD Unavailable [phone] Hilton Palacios MD Unavailable [phone] Aaron Pringle MD Unavailable [phone] Lori Batista Unavailable [phone] Neelima Raygoza Unavailable Rodna Rodríguez Unavailable Neelima Raygoza Unavailable Reason for Visit * Reason Onset Date Comments Nurse Triage 05/25/2024 Encounter Details Date Type Department Care Team (Late st Contact Info) Description 05/25/2024 Telephone [facility] MEDICINE [address] [place] [address] Shereen Latham MD [address] [place] [address] Nurse Triage Social History Tobacco Use Types [...] for gout with prednisone. Pt seen in 04/25/24 for acuteleft foot gout and prednisone was started for about 9 days then 05/02/24 prednisone was ordered for 14 days for continued left foot acute gout . Pt reports Pt was seen in [facility] 05/11/24 for continued leftfoot pain and Pt was seen by real estate intern, Leta Lunsford MD 05/11/24 also (report is on the chart). Pt had been advised to stop BP med chlorthalidone per real estate intern [facility] because that particular medication is known to [...] Pt is advised to come to [facility] today , open till 8pm, to be [...] Description 09/13/2025 3:15 PM EST Office Visit [facility] MEDICINE [address] [place] [address] Shereen Latham MD [address] [place] [address] documented as of this encounter Visit Diagnoses Not on filedocumented in this encounter Additional Health Concerns Assessment Noted Time PHQ-9 Depression Total Score: 22 024 9:12 AM EDT documented as of this encounter Care Teams Administrative Office Manager Relationship Specialty Start Date End Date Shereen Latham MD [address] [place] [address] PCP - General Family Medicine 11/02/18 Nupur Bullock PharmD [address] [place] [address] Pharmacist Internal Medicine 08/09/24 05/15/25 Sury Benitez [address] [place] [address] [address] [place] [address] Pulmonary Disease 09/27/24 Nirali Madrid OD [address] [place] [address] Optometry 10/27/24 Li Grande MD [address] [place] [address] Hematology and Oncology 10/27/24 Anselmo Gates MD [address] [place] [address] Orthopaedic Surgery 10/27/24 Margaret Holman [address] 3rd [place] [address] Cardiology 10/27/24 Herberth Stokes MD [address] [facility] [place] [address] Gastroenterology 10/27/24 Hilton Palacios MD [address] [place] [address], [address] [place] [address] Neurology 02/06/25 Aaron Pringle MD [address] [place] [address] [address] [place] [address] General Surgery 03/07/25 Lori Batista Registered Nurse 06/15/25 06/15/25 Neelima Raygoza 06/15/25 06/16/25 Ronda Rodríguez [address] [place] [address] [address] [place] [address] Obstetrics and Gynecology 08/02/25 Neelima Raygoza 08/14/25 08/23/25 Pily Delaney Insurance ProcessorJacket Changer 07/22/24 Elie Vicky [facility] Psychology 12/29/24 documented as of this encounter
--- OUTSIDE RECORDS SUMMARY | 2025-08-25 16:56 | XMS_ITS | Encounter Summary ---
Author Organization [employer] Address 75 [facility] 7 [place] [address] Care Team Providers Care Copying Machine Mechanic Name Role Phone Shereen Latham MD Primary Care Provider [phone] Sury Benitez Unavailable [phone] Nirali Madrid OD Unavailable Li Grande MD Unavailable [phone] Anselmo Gates MD Unavailable Margaret Holman Unavailable Herberth Stokes MD Unavailable [phone] Hilton Palacios MD Unavailable [phone] Aaron Pringle MD Unavailable [phone] Ronda Rodríguez Unavailable Neelima Raygoza Unavailable Reason for Visit * Reason Comments Med Refill Encounter Details Date Type Department Care Team (Late st Contact Info) Description 07/02/2025 Refill [facility] MEDICINE [address] [place], [place] [phone] Shereen Latham MD 230 [place], [place] [phone] Alcohol abuse Social History Tobacco Use Types [...] Description 09/13/2025 3:15 PM EST Office Visit [facility] MEDICINE [address] [place] [address] Shereen Latham MD [address] [place] [address] documented as of this encounter Visit Diagnoses Diagnosis Alcohol abuse Nondependent alcohol abuse, unspecified drinking behavior documented in this encounter Additional Health Concerns Assessment Noted Time PHQ-9 Depression Total Score: 21 025 11:03 AM EDT documented as of this encounter Care Teams Copying Machine Mechanic Relationship Specialty Start Date End Date Shereen Latham MD [address] [place] [address] PCP - General Family Medicine 11/02/18 Sury Benitez [address] [place] [address] [address] [place] [address] Pulmonary Disease 09/27/24 Nirali Madrid OD [address] [place] [address] Optometry 10/27/24 Li Grande MD [address] [place] [address] Hematology and Oncology 10/27/24 Anselmo Gates MD [address] [place] [address] Orthopaedic Surgery 10/27/24 Margaret Holman [address]rd [place] [address] Cardiology 10/27/24 Herberth Stokes MD [address] [facility] [address] 3rd [place] [address] Gastroenterology 10/27/24 Hilton Palacios MD [address] [place] [address], [address] [place] [address] Neurology 02/06/25 Aaron Pringle MD [address] [place] [address] 3rd [place] [address] General Surgery 03/07/25 Ronda Rodríguez [address] [place] [address] [address] [place] [address] Obstetrics and Gynecology 08/02/25 Neelima Raygoza 08/14/25 08/23/25 Pily Delaney Helper Maintenance CleaningPsychiatric Specialist 07/22/24 Elie BRASHER [facility] Psychology 12/29/24 documented as of this encounter
--- OUTSIDE RECORDS SUMMARY | 2025-08-25 16:56 | XMS_ITS | Encounter Summary ---
Author Organization [employer] Address [address] [facility] 7 [place] [address] Care Team Providers Care Batch Still Operator Name Role Phone Shereen Latham MD Primary Care Provider [phone] Nupur Bullock PharmD Unavailable Sury Benitez Unavailable [phone] JuliusLester castellanosn OD Unavailable Li Grande MD Unavailable [phone] Anselmo Gates MD Unavailable Margaret Holman Unavailable Herberth Stokes MD Unavailable [phone] Hilton Palacios MD Unavailable Aaron Pringle MD Unavailable [phone] Lori Batista Unavailable Neelima Raygoza Unavailable Ronda Rodríguez Unavailable Neelima Raygoza Unavailable Reason for Visit * Reason Onset Date Comments Nurse Triage 02/13/2025 Encounter Details Date Type Department Care Team (Late st Contact Info) Description 02/13/2025 Telephone [facility] MEDICINE [address] [place] [address] Shereen Latham MD [address] [place] [address] Nurse Triage Social History Tobacco Use Types [...] Visit [facility] MEDICINE [address] [place] [address] Shereen Latham MD [address] [place], [place] [phone] documented as of this encounter Visit Diagnoses Not on filedocumented in this encounter Additional Health Concerns Assessment Noted Time PHQ-9 Depression Total Score: 22 025 10:17 AM EST documented as of this encounter Care Teams Batch Still Operator Relationship Specialty Start Date End Date Shereen Latham MD [address] [place] [address] PCP - General Family Medicine 11/02/18 Nupur Bullock, CharleneD [address] [place] [address] Pharmacist Internal Medicine 08/09/24 05/15/25 Sury Benitez [address] [place] [address] [address] [place] [address] Pulmonary Disease 09/27/24 Nirali Madrid OD [address] [place] [address] Optometry 10/27/24 Li Grande MD [address] [place] [address] Hematology and Oncology 10/27/24 Anselmo Gates MD 10 [facility] [address] [place] [address] Orthopaedic Surgery 10/27/24 Margaret oHlman [address] 3rd [place] [address] Cardiology 10/27/24 Herberth Stokes MD 11 [facility] 3rd [place] [address] Gastroenterology 10/27/24 Hilton Palacios MD [address] [place] [address], [address] [place] [address] Neurology 02/06/25 Aaron Pringle MD [address] [place] [address] Drive 3rd [place] [address] General Surgery 03/07/25 Lori Batista Registered Nurse 06/15/25 06/15/25 Neelima Raygoza 06/15/25 06/16/25 Ronda Rodríguez [address] [place] [address] [address] [place] [address] Obstetrics and Gynecology 08/02/25 Neelima Raygoza 08/14/25 08/23/25 Pily Delaney Tube MakerAssembler Unit 07/22/24 Elie BRASHER [facility] Psychology 12/29/24 documented as of this encounter
--- OUTSIDE RECORDS SUMMARY | 2025-08-25 16:56 | XMS_ITS | Encounter Summary ---
Author Organization [employer] Address [address] [place] [address] Care Team Providers Care Drier Tender Naphthalene Name Role Phone Shereen Latham MD Primary Care Provider [phone] Encounter Details Date Type Department Care Team (Late st Contact Info) Description 08/24/2025 Telephone [facility] Radiation Oncology [address] [place] [address] Micheline Sosa MA Social History Tobacco Use Types Packs/Day Years [...] 08/13/2025 3:53 PM Shilpi Sotelo RN * Because of a physical, mental, [...] Entry Date Author No 08/13/2025 3:53 PM EDT Shilpi Pitt RN documented in this encounter Progress Notes * Micheline Sosa MA - 08/24/2025 1:41 PM EDT Spoke with pt confirmed consult appt scheduled for 08/31/25 @ 1pm documented in this encounter Plan of Treatment Upcoming Encounters Date Type Department Care Team (Late st Contact Info) Description 08/31/2025 12:30 PM EDT Appointment [facility] Radiation Oncology [address] [place] [phone] 08/31/2025 1:00 PM EDT Appointment [facility] Radiation Oncology [address] [place] [phone] Pal Ureña MD [address] [place] [address] 09/14/2025 3:00 PM EST Procedure visit Orthopedic Surgery - [place] [address] [phone] Antony Garrett, DPM [address] [address] documented as of this encounter Visit Diagnoses Not on filedocumented in this encounter Care Teams Drier Tender Naphthalene Relationship Specialty Start Date End Date Shereen Latham MD [address] [place] [phone] PCP - General 01/13/1996 documented as of this encounter
--- OUTSIDE RECORDS SUMMARY | 2025-08-25 16:56 | XMS_ITS | Encounter Summary ---
Author Organization [employer] Address [address] [place] [address] 7 [place] [address] Care Team Providers Care Form Building Supervisor Name Role Phone Shereen Latham MD Primary Care Provider [phone] Nupur Bullock PharmD Unavailable Sury Benitez Unavailable [phone] JuliusNirali castellanos OD Unavailable Li Grande MD Unavailable [phone] Anselmo Gates MD Unavailable Margaret Holman Unavailable Herberth Stokes MD Unavailable [phone] Hilton Palacios MD Unavailable Aaron Pringle MD Unavailable Lori Batista Unavailable [phone] Neelima Raygoza Unavailable Ronda Rodríguez Unavailable [phone] Neelima Raygoza Unavailable Reason for Visit * Reason Comments Med Refill Encounter Details Date Type Department Care Team (Late st Contact Info) Description 06/21/2024 Refill [facility] MED & PEDS [address] [place], [place] [phone] Shereen Latham MD [address] [place] [address] Mild intermittent asthma, unspecified whether complicated; Pain [...] Description 09/13/2025 3:15 PM EST Office Visit [facility] MEDICINE [address] [place] [address] Shereen Latham MD [address] [place] [address] documented as of this encounter Visit Diagnoses Diagnosis Mild intermittent asthma, unspecified whether complicated Pain Generalized pain documented in this encounter Additional Health Concerns Assessment Noted Time PHQ-9 Depression Total Score: 13 024 4:53 PM EDT documented as of this encounter Care Teams Form Building Supervisor Relationship Specialty Start Date End Date Shereen Latham MD [address] [place] [address] PCP - General Family Medicine 11/02/18 Nupur Bullock PharmD [address] [place] [address] Pharmacist Internal Medicine 08/09/24 05/15/25 Sury Benitez [address] [place] [address] [place] [address] [place] [address] Pulmonary Disease 09/27/24 Nirali Madrid OD [address] [place] [address] Optometry 10/27/24 Li Grande MD [address] [place] [address] Hematology and Oncology 10/27/24 Anselmo Gates MD [address] [place] [address] Orthopaedic Surgery 10/27/24 Margaret Holman [address] 3rd [place] [address] Cardiology 10/27/24 Herberth Stokes MD [address] 3rd [place] [address] Gastroenterology 10/27/24 Hilton Palacios MD 15 [facility], [address] [place] [address] Neurology 02/06/25 Aaron Pringle MD [address] [place] [address] General Surgery 03/07/25 Lori Batista Registered Nurse 06/15/25 06/15/25 Neelima Raygoza 06/15/25 06/16/25 Ronda Rodríguez [address] [place] [address] [address] [place] [address] Obstetrics and Gynecology 08/02/25 Neelima Raygoza 08/14/25 08/23/25 Pily Delaney Lead Burner ApprenticeDip Guider Stoves 07/22/24 Elie Vicky [facility] Psychology 12/29/24 documented as of this encounter
--- OUTSIDE RECORDS SUMMARY | 2025-08-25 16:56 | XMS_ITS | Encounter Summary ---
Author Organization [employer] Address [address] [place] [address] 7 [place] [address] Care Team Providers Care Special Delivery Messenger Name Role Phone Shereen Latham MD Primary Care Provider [phone] Nupur Bullock PharmD Unavailable Sury Benitez Unavailable [phone] JuliusLester castellanosn OD Unavailable Li Grande MD Unavailable [phone] Anselmo Gates MD Unavailable Margaret Holman Unavailable Herberth Stokes MD Unavailable [phone] Hilton Palacios MD Unavailable Aaron Pringle MD Unavailable [phone] Lori Batista Unavailable Neelima Raygoza Unavailable Ronda Rodríguez Unavailable Neelima Raygoza Unavailable Reason for Visit * Reason Onset Date Comments Medication Question 07/05/2024 Encounter Details Date Type Department Care Team (Late st Contact Info) Description 07/05/2024 Telephone [facility] MEDICINE [address] [place] [address] Shereen Latham MD [address] [place] [address] Medication Question Social History Tobacco Use Types [...] is no medication interaction. Contact pt at [phone] documented in this encounter Plan of Treatment Upcoming Encounters Date Type Department Care Team (Late st Contact Info) Description 09/13/2025 3:15 PM EST Office Visit [facility]INE [address] [place] [address] Shereen Latham MD [address] [place] [address] documented as of this encounter Visit Diagnoses Diagnosis Pain Generalized pain documented in this encounter Additional Health Concerns Assessment Noted Time PHQ-9 Depression Total Score: 13 024 4:53 PM EDT documented as of this encounter Care Teams Special Delivery Messenger Relationship Specialty Start Date End Date Shereen Latham MD [address] [place] [address] PCP - General Family Medicine 11/02/18 Nupur Bullock, CharleneD [address] [place] [address] Pharmacist Internal Medicine 08/09/24 05/15/25 DyloncharleneSury [address] [facility] [address] [place] [address] Pulmonary Disease 09/27/24 Nirali Madrid OD [address] [place] [address] Optometry 10/27/24 Li Grande MD [address] [place] [address] Hematology and Oncology 10/27/24 Anselmo Gates MD 10 [facility] [address] [place] [address] Orthopaedic Surgery 10/27/24 Margaret Holman [address] [place] [address] Cardiology 10/27/24 Herberth Stokes MD 11 [facility] [address] [place] [address] Gastroenterology 10/27/24 Hilton Palacios MD [address] [place] [address], [address] [place] [address] Neurology 02/06/25 Aaron Pringle MD [address] [facility] 3rd [place] [address] General Surgery 03/07/25 Lori Batista Registered Nurse 06/15/25 06/15/25 Neelima Raygoza 06/15/25 06/16/25 Ronda Rodríguez [address] [address] Obstetrics and Gynecology 08/02/25 Neelima Raygoza 08/14/25 08/23/25 Pily Delaney Manager SignMarine Service Manager 07/22/24 Elie BRASHER [facility] Psychology 12/29/24 documented as of this encounter
--- OUTSIDE RECORDS SUMMARY | 2025-08-25 16:56 | XMS_ITS | Clinical Summary ---
Author Organization [employer] Address [address] 7 [place] [address] Care Team Providers Care Contract Writer Name Role Phone [place], Shereen NOLASCO Primary Care Provider [phone] Sury Benitez Unavailable [phone] Nirali Madrdi OD Unavailable Li Grande MD Unavailable [phone] Anselmo Gates MD Unavailable Margaret Holman Unavailable Herberth Stokes MD Unavailable [phone] Hilton Palacios MD Unavailable [phone] Aaron Pringle MD Unavailable [phone] Ronda Rodríguez Unavailable Allergies Active Allergy Reactions Criticality Noted [...] tablet 3 01/13/20 25 Active sodium chloride (Early) 0.65 % nasal sprayIndication s:Nasal congestion Administer [...] MORNING 90 tablet 1 05/03/20 25 Active mometasone (Nasonex) 50 MCG/ACT nasal [...] (bullock pain). 50 g 07/20/20 25 Active Acetaminophen Extra Strength 500 MG tabletIndicatio ns:Pain TAKE 1 TABLET BY MOUTH EVERY 6 TO 8 HOURS NEEDED FOR PAIN OR FEVER 60 tablet 07/28/20 25 Active clonazePAM (KlonoPIN) 0.5 MG tablet TAKE 1 TABLET BY MOUTH EVERY DAY NEEDED PANIC ATTACK 07/26/20 25 Active Fiber-Lax 625 MG tablet TAKE 1 TABLET BY MOUTH EVERY DAY WITH A FULL GLASS OF WATER 06/07/20 25 Active doxycycline (Vibramycin) 100 MG capsule TAKE 1 CAPSULE BY MOUTH TWICE A DAY FOR 7 DAYS WITH FULL GLASS OF WATER DO NOT LIE DOWN FOR 30 MINS 06/16/20 25 Active Acetaminophen Extra Strength 500 MG tabletIndicatio ns:Pain TAKE 1 TABLET BY MOUTH EVERY 6 TO 8 HOURS NEEDED FOR PAIN OR FEVER 60 tablet 06/09/20 25 025 Discontinued Active Problems Problem Noted Date Diagnosed Date Abnormal MRI, breast 08/25/2025 Overview (08/25/2025): Left breast Anal fissure 08/25/2025 Bilateral chronic serous otitis media 08/25/2025 Chest discomfort 08/25/2025 Daytime somnolence 08/25/2025 Invasive ductal carcinoma of left breast (CMS/HC C) 08/25/2025 Joint pain 08/25/2025 Non-restorative sleep 08/25/2025 Sinus tachycardia 08/25/2025 Prolonged QT syndrome 08/25/2025 Assessment & Plan (08/25/2025 4:05 PM EDT): Recommend that patient have ER evaluation and immediate repletion of Mg, as well as monitoring of Qtc, consideration of admission, rule out NSTEMI She is not excited about going to the ER but understands why it is important based on the low Mg and EKG findings Bilateral hand pain 07/22/2025 Overview (08/02/2025): -seen by [facility] 08/01/35 s/p injection of thumb trigger finger Assessment & Plan (07/22/2025 12:31 AM EDT): From Current exam slight swelling in bl thumbs PIP but not increase skin temp nor erythema ,ROM preserved but elicit pain See by instructor tap dancing Lilly Clarke MD in 04/19/2025 for mx [...] -pxed topical diclofenac -pt will call her instructor tap dancing to schedule f up -has apt already scheduled w PCP for 09/13/25 Sebaceous cyst of labia 06/08/2025 Overview (06/08/2025): [...] finding -[facility] stereotactic core biopsy: -Minute focus of atypical ductal hyperplasia. -Focal gynecomastia-like hyperplasia. -Predominantly benign breast tissue and adipose. -Note from Dr. Pringle 03/16/25 revealed a minute focus of atypical ductal hyperplasia. Findings were discussed in detail and I recommended a wider excision to assure complete removal. She is currently being evaluated for tachycardia and has a nurse monitoring in place. I recommended a left breast [...] being evaluated for tachycardia and has a nurse monitoring in place. I recommended a left breast [...] 01/23/2022 -will continue to monitor Cardiomyopathy 04/04/2025 Multiple pulmonary nodules 04/04/2025 Atrial tachycardia [...] 04/21/24 with uric acid 7.9 -Seen by instructor tap dancing Dr. Bernstein 05/11/24 or evaluation of acute gout affecting left foot. -Pt admitted 07/25/24-07/2524 for swelling, pain, and warmth in the right knee. Patient had a low fever (100.3 F) and elevated WBC (46149 cells/uL), CRP, and ESR. Orthopedic surgery consulted [...] daily for prophylaxis -Seen by Dr. Clarke instructor tap dancing 04/19/25 Continue allopurinol 200 mg daily, plan to repeat acid level before next visit and increase allopurinol titrate allopurinol if needed to reach serum uric acid level <6 mg/dL(2020 [place] [employer] guideline for the management [...] 04/21/24 with uric acid 7.9 -Seen by instructor tap dancing Dr. Bernstein 05/11/24 or evaluation of acute gout affecting left foot. -Pt admitted 07/25/24-07/2524 for swelling, pain, and warmth in the right knee. Patient had a low fever (100.3 F) and elevated WBC (43165 cells/uL), CRP, and ESR. Orthopedic surgery consulted [...] daily for prophylaxis -Seen by Dr. Clarke instructor tap dancing 04/19/25 Continue allopurinol 200 mg daily, plan to repeat acid level before next visit and increase allopurinol titrate allopurinol if needed to reach serum uric acid level <6 mg/dL(2020 [place] [employer] guideline for the management [...] 04/21/24 with uric acid 7.9 -Seen by instructor tap dancing Dr. Bernstein 05/11/24 or evaluation of acute gout affecting left foot. -Pt admitted 07/25/24-07/2524 for swelling, pain, and warmth in the right knee. Patient had a low fever (100.3 F) and elevated WBC (33229 cells/uL), CRP, and ESR. Orthopedic surgery consulted [...] reach serum uric acid level <6 mg/dL(2020 [place] [employer] guideline for the management [...] reach serum uric acid level <6 mg/dL(2020 [place] [employer] guideline for the management [...] ON 08/24/2024 9:45 AM BY JOLIE PA [facility] (07/25/2024 - 07/27/2024) Patient presented with swelling, pain, and warmth in the right knee. Patient had a low fever (100.3 F) and elevated WBC (97728 cells/uL), CRP, and ESR. Orthopedic surgery consulted [...] by mouth once daily for 5 days. [facility] ED (08/07/2024) Patient presented for [...] failure with reduced EF during admission to [facility] 06/22/24. - She was started on [...] effusion and indeterminate diastolic function -Seen by [facility] Cardiology 08/01/24 : exercise nuclear stress [...] again until 07/2024. Last echo 06/23/2024 during [facility] heart failure admission, showed EF 55-60%, small [...] failure with reduced EF during admission to [facility] 06/22/24. - She was started on [...] effusion and indeterminate diastolic function -Seen by [facility] Cardiology 08/01/24 : exercise nuclear stress [...] again until 07/2024. Last echo 06/23/2024 during [facility] heart failure admission, showed EF 55-60%, small [...] with reduced EF during recent admission to [facility] 06/22/24. Pt was volume overloaded therefore [...] with reduced EF during recent admission to [facility] 06/22/24. Pt was volume overloaded therefore [...] failure with reduced EF during admission to [facility] 06/22/24. - She was started on [...] effusion and indeterminate diastolic function -Seen by [facility] Cardiology 08/01/24 : exercise nuclear stress [...] failure with reduced EF during admission to [facility] 06/22/24. - She was started on [...] effusion and indeterminate diastolic function -Seen by [facility] Cardiology 08/01/24 : exercise nuclear stress [...] Complex care coordination 01/11/2024 Overview (01/11/2024): -Has INDEPENDENT DISTRIBUTOR services with [facility] -Leonora is applying [facility] 01/11/2024 -In our complex care management program -referred to [facility] on 01/04/2024 -Messaged sent to [facility] for assistance in care visits Assessment & Plan (06/22/2025 11:51 AM EDT): -Has INDEPENDENT DISTRIBUTOR services with [facility] -Leonora is applying [facility] 01/11/2024 -In our complex care management program -referred to [facility] on 01/04/2024 -Messaged sent to [facility] for assistance in care visits Assessment & Plan (04/26/2025 4:15 PM EDT): -Has INDEPENDENT DISTRIBUTOR services with [facility] -Leonora is applying [facility] 01/11/2024 -In our complex care management program -referred to [facility] on 01/04/2024 -Messaged sent to [facility] for assistance in care visits Assessment & Plan (12/29/2024 10:21 AM EST): -Has INDEPENDENT DISTRIBUTOR services with [facility] Martin is applying [facility] 01/11/2024 -In our complex care management program -referred to [facility] on 01/04/2024 -Messaged sent to [facility] for assistance in care visits Assessment & Plan (08/24/2024 9:19 AM EDT): -Has INDEPENDENT DISTRIBUTOR services with [facility] -Leonora is applying [facility] 01/11/2024 -In our complex care management program -referred to [facility] on 01/04/2024 -Messaged sent to [facility] for assistance in care visits Assessment & Plan (06/29/2024 4:06 PM EDT): -Has INDEPENDENT DISTRIBUTOR services with [facility] -Leonora is applying [facility] 01/11/2024 -In our complex care management program -referred to [facility] on 01/04/2024 -Messaged sent to [facility] for assistance in care visits Assessment & Plan (01/11/2024 9:30 AM EDT): -Has INDEPENDENT DISTRIBUTOR services with [facility] -She is applying [facility] 01/11/2024 -In our [facility] complex care management program -referred to [facility] on 01/04/2024 -Messaged sent to [facility] for assistance in care visits Generalized anxiety [...] team and will reconnect with [facility]. Information given to patient. PLAN: (check all that apply) Behavioral Health Integration Plan Self- referred to [facility] per patient's preference. Assessment & Plan (11/24/2023 11:53 AM EST): STEFANY-7 Total Score: 21 (10/22/2023 10:44 AM) New/Additional Services needed Off-site services for , Behavioral Health Integration Plan External OP therapy referral , Patient Self Plan Patient to utilize skills provided in intervention , Patient to reach out to [facility] team as needed, and Patient to engage in OP therapy Provided patient with support in scheduling an Intake appt with [facility]. Anemia 07/29/2023 Overview (06/22/2025): Lab Results Component Value Date FERRITIN 144 03/02/2025 FERRITIN 180 11/08/2024 HGB 11.2 (L) 03/02/2025 HGB 11.4 (L) 12/29/2024 HGB 12.5 07/01/2022 HGB 12.2 01/23/2022 HEMATOCRIT 37.0 07/01/2022 HEMATOCRIT 36.0 01/23/2022 Pt does not want to take iron orally, she wants to go back to hematology for transfusion - Iron infusions ordered by Land Surveyor Manager DR. Grande - She recieved two sessions [...] for transfusion - Iron infusions ordered by Land Surveyor Manager DR. Grande - She recieved two sessions [...] for transfusion - Iron infusions ordered by Land Surveyor Manager DR. Grande - She recieved two sessions [...] for transfusion - Iron infusions ordered by Land Surveyor Manager DR. Grande - She recieved two sessions [...] for transfusion - Iron infusions ordered by Land Surveyor Manager DR. Grande - She recieved two sessions [...] causes hypomagnesemia (furosemide). -ordered repeat magnesium level 10/23/24 - Increased Magnesium intake to 4 times a day 11/09/24 - Prescribed magnesium oxide (Mag-Ox) 400 MG tablet 11/09/24 -ordered repeat labs 12/29/24, normal Assessment & Plan (08/25/2025 4:03 PM EDT): Pt says she is taking Mag-ox 4 times daily Would recommend that she consider stopping omeprazole as furosemide is needed for her HF treatment Assessment & Plan (04/26/2025 4:15 PM EDT): [...] pedro back by: Janett Ortega Person calling: [employer] Date:06/16/24 Time: 1218 Saw CDTM on 08/16/24 [...] pedro back by: Janett Ortega Person calling: [employer] Date:06/16/24 Time: 1218 Assessment & Plan (07/29/2023 4:34 PM EDT): Received magnesium IV in ER -Dose increased to TID - Recheck in 2 weeks Other specified health status 07/20/2023 Overview (06/22/2025): -next physical exam due after 06/22/26 -eye care facilitated by [facility] -dental home is [facility] -health care proxy filed 06/29/24 Assessment & Plan (06/22/2025 11:51 AM EDT): -next physical exam due after 06/22/26 -eye care facilitated by [facility] -dental home is [facility] -health care proxy filed 06/29/24 Assessment & Plan (06/29/2024 4:03 PM EDT): -next physical exam due after 06/29/25 -eye care facilitated by [facility] -dental home is [facility] -health care proxy given and filed 06/29/24 Stage 3 chronic kidney disease (CMS/HCC) 023 Assessment & Plan (12/14/2023 12:11 PM EST): [...] had ultrasound sound for abdominal pain at [facility] revealing diffusely echogenic parenchyma with focal [...] had ultrasound sound for abdominal pain at [facility] revealing diffusely echogenic parenchyma with focal [...] had ultrasound sound for abdominal pain at [facility] revealing diffusely echogenic parenchyma with focal [...] had ultrasound sound for abdominal pain at [facility] revealing diffusely echogenic parenchyma with focal [...] had ultrasound sound for abdominal pain at [facility] revealing diffusely echogenic parenchyma with focal [...] spironolactone (Aldactone) 25 MG tablet 11/09/24 -06/20/25 college administrator held spironolactone Assessment & Plan (06/22/2025 11:51 AM EDT): -Blood pressure is at goal -Continue lifestyle modifications -Continue current medications - Prescribed spironolactone (Aldactone) 25 MG tablet 11/09/24 -06/20/25 college administrator held spironolactone Assessment & Plan (04/26/2025 4:15 [...] current medications Alcohol use disorder, moderate, dependence (CMS/ HCC) 12/12/2021 Overview (04/26/2025): Longstanding, severe olesya drinking with hx admissions and withdrawal. Care complicated by difficulty accepting/comprehending risk. We have many times discussed risks including liver damage, liver failure and the risk of dying if she continues to drink. At times she has been referred [facility] for Support and Recovery but has not [...] subsequently declined -Admitted for alcohol detox at [facility] 04/09/24 -reports she is currently not [...] been referred to [facility] for Support and Recovery but has not [...] subsequently declined -Admitted for alcohol detox at [facility] 04/09/24 -reports she is currently not [...] been referred to [facility] for Support and Recovery but has not [...] subsequently declined -Admitted for alcohol detox at [facility] 04/09/24 -reports she is currently not [...] been referred to [facility] for Support and Recovery but has not [...] subsequently declined -Admitted for alcohol detox at [facility] 04/09/24 -reports she is currently not [...] received phenobarb improved her symptoms, patient declined residence life coordinator help to place her in rehab, is [...] received phenobarb improved her symptoms, patient declined residence life coordinator help to place her in rehab, is [...] malignant neoplasm of breast in female (CMS/HCC) 12/12/2021 Overview (08/14/2025): 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 -[facility] started Oct, completed [...] being evaluated for tachycardia and has a nurse monitoring in place. I recommended a left breast [...] recommendation for a sentinel node biopsy made. -s/p Left axillary sentinel node biopsy 07/27/[address] Pringle, pathology one lymph node with isolated tumor cells -following with Dr. 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 -S/p RIGHT mastectomy with sentinel node bx by Dr. [facility] -Adriamycin/Cytoxan based chemotherapy started Oct, completed [...] being evaluated for tachycardia and has a nurse monitoring in place. I recommended a left breast [...] tumor 2.2 cm ER positive, DC positive, HER-2/PEREZ negative, two sentinel nodes negative. -S/p [facility]an [facility] started Oct, completed [...] being evaluated for tachycardia and has a nurse monitoring in place. I recommended a left breast [...] tumor 2.2 cm ER positive, DC positive, HER-2/PEREZ negative, two sentinel nodes negative. -S/p [facility]an [facility] started Oct, completed [...] tumor 2.2 cm ER positive, DC positive, HER-2/PEREZ negative, two sentinel nodes negative. -S/p RIGHT mastectomy with sentinel node bx by Dr. [facility] -Adriamycin/Cytoxan based chemotherapy started Oct, completed [...] tumor 2.2 cm ER positive, DC positive, HER-2/PEREZ negative, two sentinel nodes negative. -S/p RIGHT mastectomy with sentinel node bx by Dr. [facility] -Adriamycin/Cytoxan based chemotherapy started Oct, completed [...] tumor 2.2 cm ER positive, DC positive, HER-2/PEREZ negative, two sentinel nodes negative. -S/p RIGHT mastectomy with sentinel node bx by Dr. [facility] -Adriamycin/Cytoxan based chemotherapy started Oct, completed [...] tumor 2.2 cm ER positive, DC positive, HER-2/PEREZ negative, two sentinel nodes negative. -S/p RIGHT mastectomy with sentinel node bx by Dr. [facility] -Adriamycin/Cytoxan based chemotherapy started Oct, completed [...] tumor 2.2 cm ER positive, DC positive, HER-2/PEREZ negative, two sentinel nodes negative. -S/p RIGHT mastectomy with sentinel node bx by Dr. [facility] -Adriamycin/Cytoxan based chemotherapy started Oct, completed [...] tumor 2.2 cm ER positive, DC positive, HER-2/PEREZ negative, two sentinel nodes negative. -S/p RIGHT mastectomy with sentinel node bx by Dr. [facility] -Adriamycin/Cytoxan based chemotherapy started Oct, completed [...] tumor 2.2 cm ER positive, DC positive, HER-2/PEREZ negative, two sentinel nodes negative. -S/p RIGHT [facility]an [facility] started Oct, completed [...] tumor 2.2 cm ER positive, DC positive, HER-2/PEREZ negative, two sentinel nodes negative. -S/p RIGHT [facility]Cytoxan based chemotherapy started Oct, completed [...] tumor 2.2 cm ER positive, DC positive, HER-2/PEREZ negative, two sentinel nodes negative. -S/p RIGHT mastectomy with sentinel node bx by Dr. Prescott [facility] -Adriamycin/Cytoxan based chemotherapy started Oct, completed [...] Overview (06/22/2025): Lab Results Component Value Date [id number] 79.4 05/15/2025 [id number] 58.3 06/16/2024 [id number] 106.4 01/04/2024 Assessment & Plan (04/26/2025 4:15 PM EDT): Lab Results Component Value Date [id number] 58.3 06/16/2024 [id number] 106.4 01/04/2024 [id number] 76.8 09/22/2023 Orders: Vitamin D, 25-Hydroxy, Total, Immunoassay; Future Assessment & Plan (06/29/2024 3:39 PM EDT): Lab Results Component Value Date [id number] 58.3 06/16/2024 [id number] 106.4 01/04/2024 [id number] 76.8 09/22/2023 Assessment & Plan (12/14/2023 12:09 PM EST): Lab Results Component Value Date [id number] 76.8 09/22/2023 -Labs ordered for further evaluation: Vitmain D, 25-hydroxy, Total, Immunoassay. 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 Per Dr. Krish Loomis's note from [facility], pt was due for repeat [...] CIN2-3. Per Dr. Krish Loomis's note from [facility], pt was due for repeat [...] CIN2-3. Per Dr. Krish Loomis's note from [facility], pt was due for repeat [...] CIN2-3. Per Dr. Krish Loomis's note from [facility] [employer], pt was due for repeat colposcopy in 2011. -Total Vaginal Hysterectomy 08/27/17 ('with MONICA 2 pathology and negative resection margins'). Per note dated 11/27/17 Dr. Reyes; 'patient to discontinue PAP screening'. -Vaginal pap NILM HPV negative 08/2018, per not no further paps indicated Severe episode of recurrent major depressive disorder, with psychotic features ([facility]/HCC) 04/19/2014 Overview (12/29/2024): -has therapist in [place] [...] , Patient to reach out to [facility] team as needed, Patient to reach out to [facility] as needed, and will contact [facility] Intake number to connect with [facility] OP services, and psychiatrist. Rule Out Diagnoses: [...] as pharmacomtherapy, [facility] smoking cessation group, and [facility] pharmacy smoking cessation clinic Discussed [facility] recommends annual lung cancer screening with low [...] as pharmacomtherapy, [facility] smoking cessation group, and [facility] pharmacy smoking cessation clinic Discussed [facility] [...] as pharmacomtherapy, [facility] smoking cessation group, and [facility] pharmacy smoking cessation clinic Discussed [facility]F [...] as pharmacomtherapy, [facility] smoking cessation group, and [facility] pharmacy smoking cessation clinic Discussed [facility]PSTF [...] as pharmacomtherapy, [facility] smoking cessation group, and [facility] pharmacy smoking cessation clinic Discussed [facility]F [...] as pharmacomtherapy, [facility] smoking cessation group, and [facility] pharmacy smoking cessation clinic Discussed [facility] recommends annual lung cancer screening with low dose CT in people who meet the following criteria: -ages 50 to 80 years. -have a 20 pack-year smoking history. -currently smoke cigarettes or quit within the past 15 years. -LDCT: Resolved Problems Problem Noted Date Diagnosed Date Resolved Date Shortness of breath 06/14/2025 08/02/20 Precordial pain 06/14/2025 08/02/2025 Assessment & Plan (06/14/2025 12:20 PM EDT): Patient is high risk I will give aspirin 325mg at office EKG done sinus tachy prolonged Qtc I will send her to the emergency room, EMS called Abdominal wall strain 04/04/20252024 Chronic bronchitis (CMS/HCC) 04/04/2025 04/26/2025 Environmental allergies 04/04/2025 10/0 11/2024 Pericardial effusion 04/04/2025 025 Restrictive ventilatory defect [...] of breath) 06/29/2024 Overview (12/29/2024): -Followed by [facility] Pulmonology with Sury Benitez NP -02/2024 [...] Plan (12/29/2024 11:03 AM EST): -Followed by [facility] Pulmonology with Sury Benitez NP -02/2024 [...] if needed. -pt reports she saw her technical mgr and is continuing management with them. . Assessment & Plan (07/13/2024 2:15 PM EDT): -referred to pulmonology 06/29/24 -Pt reports she has appt to see technical mgr 08/01/24 Assessment & Plan (06/29/2024 4:49 PM [...] flare 05/11/2024 12/29/2024 Overview (07/13/2024): Seen by instructor tap dancing Dr. Bernstein 05/11/24 or evaluation of acute [...] Plan (07/13/2024 2:21 PM EDT): Seen by instructor tap dancing Dr. Bernstein 05/11/24 or evaluation of acute [...] acid. Acute gout of left foot 04/25/2024 12/04/2024 Alcohol dependence with unsp ecified alcohol-induced disorder [...] EDT): Patient requesting a Physical for her [employer] hours to be re-instated. On exam today, her vitals are stable and her exam seems unchanged from previous one. Work up in progress for her c/o bilateral foot pain Hospital discharge follow-up 06/18/2023 07/20/2023 Assessment & Plan (07/14/2023 10:23 AM EDT): Patient here for a HDF. She was admitted to [facility] from 06/05-06/08 . She presented [...] on scene within 10 minutes, transfer completed [facility] ER called with expect Hypertension 05/26/2023 12/14/2023 Assessment & Plan (05/26/2023 12:12 PM EDT): Not controlled today Pt says she took her Lisinopril and chlorthalidone this morning Hypokalemia 12/09/2022 10/27/2024 Hyperaldosteronism 11/16/2022 3 Overview (11/16/2022): Seen by [facility] 04/03/2022. Initially seen 12/2021 for hyperaldosteronism. Labs [facility] 10/2021 aldosterone 8, plasma renin 0.11, aldosterone/renin 72.7. She was likely on spironolactone and lisinopril at time of labs. Advise no spironolactone for 6 weeks and recheck renin aldosterone levels with renal panel and magnesium in soil biology teacher. Assessment & Plan (11/16/2022 10:55 AM EST): Seen by [facility] 04/03/2022. Initially seen 12/2021 for hyperaldosteronism. Labs [facility] 10/2021 aldosterone 8, plasma renin 0.11, aldosterone/renin 72.7. She was likely on spironolactone and lisinopril at time of labs. Advise no spironolactone for 6 weeks and recheck renin aldosterone levels with renal panel and magnesium in soil biology teacher. Generalized pain 09/14/2014 06/08/2025 Anxiety 04/19/2014 01/28/2024 Polysubstance abuse 04/19/2014 04/04/20 25 Encounters Date Type Department Care Team Description 08/25/2025 11:00 AM EDT Office Visit [facility] [address] [address] Mayda Rush MD Prolonged QT syndrome (Primary Dx); Invasive ductal carcinoma of left breast (CMS/HCC) ([facility]); Complex care coordination; Palpitations with regular cardiac rhythm; Chronic heart failure with preserved ejection fraction (HFpEF) ([facility]); Hypomagnesemia 08/25/2025 Orders Only GENERIC EXTERNAL DATA DEPARTMENT Provider, Generic External Data 08/23/2025 Patient Outreach [facility] [address] [place] [address] Shereen Latham MD Care Coordination (Communication to pts assigned CP Coordinator) 08/15/[address] [address] Shereen Latham MD ER Follow-up 08/15/2025 Patient Outreach [facility] [address] [place] [address] Shereen Latham MD Care Coordination (CP ED F/U) 08/15/2025 Patient Outreach [facility] [address] [place] [address] Shereen Latham MD Care Coordination (CP Chart review) 08/15/2025 Telephone [facility] ADULT DENTAL [address] [place] [phone] Isa De La Rosa DDS rs no show appt 08/14/2025 Patient Outreach [address] [address] Shereen Latham MD 07/28/2025 Refill [facility] [address] [place] [address] Tari Chance NP Pain 07/27/2025 Orders Only GENERIC EXTERNAL DATA DEPARTMENT Provider, Generic External Data Bilateral malignant neoplasm of breast in female, unspecified estrogen receptor status, unspecified site of breast ([facility]/HCC) (Primary Dx) 07/25/[address] [address] Shereen Latham MD Call Back Request 07/20/2025 1:15 PM EDT Office Visit [address] [address] Junie Padron MD Pain in both hands (Primary Dx); Bilateral hand pain 07/20/2025 Results Follow-Up [address] [address] Junie Padron MD C-reactive Protein, Sed Rate by Modified Westergren, Uric acid, XR Hand 3+Views Bilateral 07/20/2025 Travel 07/02/[address] [address] Shereen Latham MD Alcohol abuse 06/28/2025 Orders Only [facility] External Provider, [facility] Bilateral malignant neoplasm of breast in female, unspecified estrogen receptor status, unspecified site of breast (CMS/HCC) (Primary Dx); Abnormal mammogram 06/23/[address] [address] Shereen Latham MD 06/22/2025 11:15 AM EDT Office Visit [address] [address] Shereen Latham MD Trigger finger, unspecified finger, [...] specified health status 06/22/2025 Travel 06/21/[address] [phone] Shereen Latham MD chartprep 06/16/2025 10:15 AM EDT Office Visit [address] [phone] Naomi De Jesus ANP Right otitis media, unspecified otitis media type (Primary Dx); Heart failure with preserved ejection fraction, unspecified HF chronicity (CMS/HCC); Shortness of breath; Nasal congestion 06/16/2025 Telephone [facility] ADULT DENTAL [address] [place] [phone] Isa De La Rosa DDS active requested appt 06/16/2025 Patient Outreach [facility] [address] [place] [address] Shereen Latham MD Care Coordination (Communication to PT assigned CP Coordinator) 06/16/2025 Travel 06/15/2025 Telephone [facility] MEDICINE [address] [place] [phone] Shereen Latham MD ER Follow-up 06/15/2025 Patient Outreach [facility] [address] [place] [address] Shereen Lahtam MD Care Coordination (Formerly [facility] ED Follow Up) 06/15/2025 Patient Outreach [facility] [address] [place] [address] Shereen Latham MD Care Coordination (CP Care Coordination Chart Review) 06/15/2025 Patient Outreach [facility] MEDICINE [address] [place] [phone] Shereen Latham MD 06/15/2025 Patient Outreach [facility] MEDICINE [address] [place] [phone] Shereen Latham MD 06/14/2025 2:20 PM EDT Office Visit [facility] [address] [place] [phone] Junie Damon MD Shortness of breath; Precordial pain 06/14/2025 Travel 06/14/2025 Orders Only [facility] MED[facility] [address] [place] [phone] Shereen Latham MD Sebaceous cyst of labia (Primary Dx) 06/09/2025 Telephone [facility] MEDICINE [address] [place] [address] Shereen Latham MD Referral 06/09/2025 Refill [facility] [address] [place] [address] Shereen Latham MD Pain 06/07/2025 6:00 PM EDT Office Visit [facility] [address] [place] [phone] Tari Chance NP Cough in adult patient (Primary Dx); Viral illness; Elevated blood pressure reading in office with diagnosis of hypertension 06/07/2025 Travel 06/07/2025 Telephone [facility] MEDICINE [address] [place] [phone] Shereen Latham MD Nurse Triage 06/02/2025 Telephone [facility] MEDICINE [address] [place] [address] Shereen Latham MD Referral 06/01/2025 Orders Only GENERIC EXTERNAL DATA DEPARTMENT Provider, Generic External Data History of right breast cancer (Primary Dx); Abnormal mammogram from Last 3 Months Immunizations Immunization Administration [...] 10:43 AM EDT Respiratory Rate 17 08/25/2025 10:4 3 AM EDT Oxygen Saturation 98% 08/25/2025 10: 43 AM EDT Inhaled Oxygen Concentration - - Weight 89.7 kg (197 lb 12.8 oz) 07/20/2025 2:10 PM EDT Height 170.2 cm (5' 7 ) 07/20/2025 2:10 PM EDT Body Mass Index 30.98 07/20/2025 2:10 PM EDT Plan of Treatment Upcoming Encounters Date Type Department Care Team (Late st Contact Info) Description 09/13/2025 3:15 PM EST Office Visit [facility] MED[facility] [address] [place], [place] [phone] Shereen Latham MD [address] [place], [place] [phone] Health Maintenance Due Date Last Done Comments [...] Screening 03/02/2026 03/02/2025 Dental X-Ray: Bitewings 03/30/2026 03/29/20, 06/17/2024, 03/31/2024, Additional history exists Disability Screening 04/26/2026 04/26/2025 Family Planning (PISQ) 06/22/2026 06/22/2025 Colonoscopy 07/11/2026 07/11/2024 Colorectal Cancer Screening 07/11/2026 Tobacco Screening 08/25/2026 08/25/2025 FIT DNA/Cologuard 08/27/2026 08/27/2023 Dental X-Ray: Full [...] 08/25/2025 3:59 PM EDT Prolonged QT syndrome CT HEAD WO CONTRAST Routine 08/25/2025 3 :28 PM EDT TSH W/REFLEX TO FT4 Routine 08/25/2025 1 2:45 PM EDT ETHANOL Routine 08/25/2025 12:45 PM EDT MAGNESIUM Routine 08/25/2025 12:45 PM EDT BASIC METABOLIC PANEL Routine 08/25/2025 12:45 PM EDT HEPATIC FUNCTION PANEL Routine 08/25/2025 12:45 PM EDT HIGH SENSITIVITY TROPONIN I Routine 08/25/2025 12:45 PM EDT CBC WITH AUTO DIFFERENTIAL Routine 08/25/2025 12:45 PM EDT HEMATOXYLIN AND EOSIN STAIN Routine 07/27/2025 10:31 AM EDT NM SENTINEL NODE W IMAGING Routine 07/27/2025 7:47 AM EDT AMB REFERRAL TO OB-SAT MATH TUTOR Routine 07/24/2025 Sebaceous cyst of labia XR HAND 3+ VIEWS BILATERAL Routine 07/20/2025 [...] BIOPSY LEFT Routine 06/01/2025 9:04 AM EDT PROPHYLAXIS - ADULT Routine 03/29/2025 2 [...] Recently Relevant to Health Maintenance Results * ECG 12 lead (08/25/2025 3:59 PM EDT) Only the most recent of2 resultswithin the time period is included. Narrative Mayda Rush MD - 08/25/2025 3:59 PM EDT Qtc 526, VR 98, minimal high-lateral repolarization us Mayda Rush MD ECG ORDERABLES Final Result * CT Head w/o Contrast (08/25/2025 3:28 PM EDT) Anatomical Region Laterality Modality Head, Neck Computed Tomogra phy 08/25/2025 3:28 PM EDT Narrative 08/25/2025 3:53 PM EDT [address] [address] [address] Scan Report Signed Patient: Azra Cast MR#: [id number] : 1975 Acct:[id number] Age/Sex: 49 / F ADM Date: 08/25/25 Loc: HO.ED Attending Dr: Ordering Physician: Leighann Ordonez DO Date of Service: 08/25/25 Procedure(s): CT head/brain wo IV con Accession Number(s): [id number] cc: Shereen Latham MD; Leighann Ordonez DO Report Number: [id number]: Total DLP = 712.00 mGy-cm Reason for Exam: headache EXAMINATION: CT HEAD WITHOUT IV CONTRAST HISTORY: headache. TECHNIQUE: Unenhanced helical CT of the head was performed per standard departmental protocol. Coronal and sagittal reformats of the head were also evaluated. One or more of the following techniques was used for dose reduction: Automated exposure control, adjustment of the mA and/or kV according to patient size, use of iterative reconstruction technique. DLP: 712 mGy-cm COMPARISON: Previous head CT August 2020 FINDINGS: BRAIN: The brain parenchyma is unremarkable. There is normal mello/white differentiation. The ventricular system is normal in size and configuration. There is no mass effect or midline shift. No intra- or extra-axial fluid collections are identified. SINUSES: The visualized paranasal sinuses are clear. The mastoid air cells and middle ear cavities are well pneumatized. ORBITS: The visualized orbits are unremarkable. BONES/SOFT TISSUES: The extracranial soft tissues are unremarkable. The calvarium is intact. No suspicious lytic or sclerotic lesions. CT/CT head/brain wo IV con IMPRESSION: No acute intracranial abnormality. Electronically signed by: Chandrika Garg MD 08/25/2025 03:50 PM EDT RP Dictated By: Chandrika Garg MD Signed By: <Electronically signed by Chandrika Garg MD in OV> 08/25/25 1550 DD/ 1528 TD/TT: 08/25/25 1538 Activities Officer: CAROLINE Procedure Note Donotuseinterpreter, Image - 08/25/[address] [address] [address] Scan Report Signed Patient: Maged Cast#: [id number] : 1975Acct:[id number] Age/Sex: 49 / FADM Date: 08/25/25 Loc: HO.ED Attending Dr: Ordering Physician: Leighann Ordonez DO Date of Service: 08/25/25 Procedure(s): CT head/brain wo IV con Accession Number(s): [id number] cc: Shereen Latham MD; Leighann Ordonez DO Report Number: [id number]: Total DLP = 712.00 mGy-cm Reason for Exam: headache EXAMINATION: CT HEAD WITHOUT IV CONTRAST HISTORY: headache. TECHNIQUE: Unenhanced helical CT of the head was performed per standard departmental protocol. Coronal and sagittal reformats of the head were also evaluated. One or more of the following techniques was used for dose reduction: Automated exposure control, adjustment of the mA and/or kV according to patient size, use of iterative reconstruction technique. DLP: 712 mGy-cm COMPARISON: Previous head CT August 2020 FINDINGS: BRAIN: The brain parenchyma is unremarkable. There is normal mello/white differentiation. The ventricular system is normal in size and configuration. There is no mass effect or midline shift. No intra- or extra-axial fluid collections are identified. SINUSES: The visualized paranasal sinuses are clear. The mastoid air cells and middle ear cavities are well pneumatized. ORBITS: The visualized orbits are unremarkable. BONES/SOFT TISSUES: The extracranial soft tissues are unremarkable. The calvarium is intact. No suspicious lytic or sclerotic lesions. CT/CT head/brain wo IV con IMPRESSION: No acute intracranial abnormality. Electronically signed by: Chandrika Garg MD 08/25/2025 03:50 PM EDT Dictated By: Chandrika Garg MD Signed By: <Electronically signed by Chandrika Garg MD in OV> 08/25/25 1550 DD/ 1528 TD/TT: 08/25/25 1538 Activities Officer: CAROLINE [facility] External Provider IMG CT PROCEDURES Final Result * High Sensitivity Troponin I (08/25/2025 12:45 PM EDT) Only the most recent of2 resultswithin the time period is included. Pathologist [facility] TROPONIN I HIGH SENSITIVITY 12.2 <3.5 - 17.0 ng/L [facility] Comment:The Orellana high sens itivity Troponin-I results should beused in conjunction with other diagnostic information suchas ECG, clinical observations and information, and patientsymptoms to aid in the diagnosis of SD. 08/25/2025 12:4 5 PM EDT 08/25/2025 12:52 PM EDT Generic External Data Provider LAB BLOOD ORDERAB LES Final Result Performing Organization Address [facility]/ZIP Co de Phone Number [facility] [address] [place] [phone] * Ethanol (08/25/2025 12:45 PM EDT) Pathologist [facility] ETHANOL (MG/DL) IN SER/PLAS 11 mg/dL [facility] Comment:Serum/plasma ethanol results are to be used formedical/treatment purposes only. 08/25/2025 12:4 5 PM EDT 08/25/2025 12:52 PM EDT Generic External Data Provider LAB BLOOD ORDERAB LES Final Result Performing Organization Address [facility]/ZIP Co de Phone Number [facility] [address] [place] [phone] * TSH with Reflex to Free T4 (08/25/2025 12:45 PM EDT) Pathologist [facility] TSH reflex Free T4 0.94 0.32 - 4.0 uIU/mL [facility] 08/25/2025 12:4 5 PM EDT 08/25/2025 12:52 PM EDT us Generic External Data Provider LAB BLOOD ORDERAB LES Final Result [facility] [address] [place] [address] [phone] * (ABNORMAL) CBC auto differential (08/25/2025 12:45 PM EDT) White Blood Count 9.9 4.8 - 10.8 X10*3/uL [facility] Red Blood Count 4.12(L) 4.20 - 5.50 X10*6/uL [facility] Hemoglobin 11.6(L) 12.0 - 16.0 g/dl [facility] Hematocrit 35.5(L) 37.0 - 47.0 % [facility] Mean Corpuscular Volume 86.2 80.0 - 98.0 fL [facility] Mean Corpuscular Hemoglobin 28.2 27.0 - 33.0 pg [facility] Mean Corpuscular HGB Conc 32.7 31.0 - 35.0 g/dl [facility] Red Cell Distribution Width 14.3 11.0 - 16.0 % [facility] Platelet Count 304 160 - 400 X10*3/uL [facility] Mean Platelet Volume 9.9 9.4 - 12.3 fL [facility] Neutrophils Percent Auto 64.4 45 - 73 % [facility] Imm Gran Pct Auto 0.3 0.0 - 0.4 % [facility] Lymphocytes Percent Auto 26.9 20 - 40 % [facility] Monocytes Percent Auto 5.8 2 - 11 % [facility] Eosinophils Percent Auto 2.0 0 - 4 % [facility] Basophils Percent Auto 0.6 0 - 2 % [facility] NRBC Pct Auto 0.0 0.0 - 0.2 /100WBC [facility] Neutrophils Absolute Auto 6.4 2.0 - 8.3 x10*3/uL [facility] Imm Gran Abs Auto 0.03 0.00 - 0.03 X10*3/uL [facility] Lymphocytes Absolute Auto 2.7 1.2 - 4.9 X10*3/uL [facility] Monocytes Absolute Auto 0.6 0.1 - 1.2 X10*3/uL [facility] Eosinophils Absolute Auto 0.2 0.0 - 0.4 X10*3/uL [facility] Basophils Absolute Auto 0.1 0.0 - 0.2 X10*3/uL [facility] NRBC Abs Auto 0.000 0.0 - 0.012 X10*3/uL [facility] 08/25/2025 12:4 5 PM EDT 08/25/2025 12:52 PM EDT Generic External Data Provider LAB BLOOD ORDERAB LES Final Result Performing Organization Address City/[facility]/ZIP Co de Phone Number [facility] [address] [place] [phone] * (ABNORMAL) Magnesium (08/25/2025 12:45 PM EDT) Pathologist [facility] Magnesium 1.4(LL) 1.6 - 2.6 mg/dL [facility] Comment:Critical value for M AGS: Results called to and read backby: DANIE Person calling: DYLEEI Date: 08/25/25 Time:1320 08/25/2025 12:4 5 PM EDT 08/25/2025 12:52 PM EDT Generic External Data Provider LAB BLOOD ORDERAB LES Final Result Performing Organization Address City/[facility]/ZIP Co de Phone Number [facility] [address] [place] [address] [phone] * (ABNORMAL) Hepatic Function Panel (08/25/2025 12:45 PM EDT) Bilirubin, Total 0.3 0.0 - 1.0 mg/dL [facility] Bilirubin, Direct 0.1 0.0 - 0.5 mg/dL [facility] Aspartate Amino Transferase 21 5 - 31 U/L [facility] Alanine Aminotransferase 18 0 - 31 U/L [facility] Total Protein 7.1 6.5 - 8.0 g/dL [facility] Albumin Level 4.3 3.5 - 5.0 g/dL [facility] Alkaline Phosphatase 129(H) 39 - 117 U/L [facility] 08/25/2025 12:4 5 PM EDT 08/25/2025 12:52 PM EDT us Generic External Data Provider LAB BLOOD ORDERAB LES Final Result [facility] [address] [place] [phone] * (ABNORMAL) Basic Metabolic Panel (08/25/2025 12:45 PM EDT) Sodium 141 135 - 145 mmol/L [facility] Potassium 3.9 3.3 - 5.1 mmol/L [facility] Chloride 107 96 - 108 mmol/L [facility] Carbon Dioxide 25 22 - 29 mmol/L [facility] Anion Gap 13 12 - 20 [facility] Urea Nitrogen (BUN) 19(H) 9 - 16 mg/dL [facility] Creatinine, Serum 0.89 0.5 - 1.4 mg/dL [facility] Creatinine Clr Calc Pharmacy 85.7 [facility] Comment:Provided height and weight: 170.18 cm,89.176 kg.eGFR (calculated from the MDRD study equation) and eCrCl(calculated from the Cockcroft-Gault equation) are based ondifferent parameters and may not yield comparable results.If eCrCl result is absurd, please check patient'sheight/weight. Estimated Glomerular Filt Rate >60 [facility] Comment:Chronic Kidney Disea se: Estimated GFR < 60 mL/min/1.73p9Mkktyo Kidney Disease: Estimated GFR < 15 mL/min/1.73m2 Glucose 154(H) 60 - 115 mg/dL [facility] Calcium 9.2 8.4 - 10.2 mg/dL [facility] 08/25/2025 12:4 5 PM EDT 08/25/2025 12:52 PM EDT us Generic External Data Provider LAB BLOOD ORDERAB LES Final Result [facility] [address] [place] [phone] * Hematoxylin and Eosin Stain (07/27/2025 10:31 AM EDT) Only the most recent of2 resultswithin the time period is included. 07/27/2025 10:3 1 AM EDT 07/27/2025 11:18 AM EDT Narrative [facility] - 07/29/2025 10:20 AM EDT ----- ------- Name: Azra Cast Age/Sex: 49/F : 1975 Unit#: [id number] Attend Dr: Aaron Pringle MD Re07/27/25 Status: [facility] Location: [facility] Disch: ----- ------- SPEC : [id number] RECD: 07/27/25-111 STATUS: CRAIG ANDERSEN NUM: [id number] MAYA: 07/27/25-[address] [facility] [address]: Aaron Pringle MD ENTERED: 07/27/251144 SP TYPE: Surgical OTHR DR: Shereen Latham MD ORDERED: HE Stain/2, Gross Micro L5/2, Cytokeratin/2, IHC Diagnosis A. Lymph node, sentinel #1, excision: One lymph node with isolated tumor cells (highlighted by leary-cytokeratin) (see comment). B. Additional axillary tissue, excision: Benign adipose tissue; no lymph nodes found. COMMENT: Note is made of the patient's recent breast lumpectomy ([id number]). The final pathologic stage is pT1bN0(i+). Clinical History Pre-Op Dx: Malignant neoplasm of unspecified site Post-Op Dx: Malignant neoplasm of left breast Microscopic Description Microscopic sections reviewed. The immunostain for leary-cytokeratin highlights isolated tumor cells in one sentinel lymph node in part A. Material Received A. Ashley node #1 - 1982 B. Additional axillary tissue Gross Description Received in 2 parts. A. Received in formalin labeled sentinel node#1 count-1982 is an oval mass of yellow adipose tissue measuring 2.8 x 2.0 x 1.4 cm. Sectioning reveals the presence of a central lara and red-pink lymph node measuring 1.5 cm in diameter. The specimen is serially sectioned and entirely submitted for microscopic examination in cassettes A1 and A2, 3 pieces each. B. Received in formalin labeled additional axillary tissue is an oval mass of lobulated yellow adipose tissue measuring 5.2 x 3.7 x 0.9 cm. The specimen is serially sectioned revealing a smooth, moist homogeneous yellow cut surface. No nodules are identified. The specimen is entirely submitted for microscopic examination in cassettes B1 through B 5, 2 pieces each in cassettes B1 through B4 and 3 pieces in cassette B 5. ([facility]) Special stains ordered and performed: Immunostain for leary-cytokeratin on A1 and A2. CONTINUED ON NEXT PAGE ----- ------- Name: Azra Cast Age/Sex: 49/F : 1975 Unit#: [id number] Attend Dr: Aaron Pringle MD Re07/27/25 Status: [facility] Location: [facility] Disch: ----- ------- SPEC : [id number] RECD: 07/27/25 STATUS: KVNGMelquiades ANDERSEN NUM: [id number] MAYA: 07/27/25-[address] [facility] [address]: Aaron Pringle MD ENTERED: 07/27/25 SP TYPE: Surgical OTHR DR: Shereen Latham MD ORDERED: HE Stain/2, Gross Micro L5/2, Cytokeratin/2, IHC IHC S/NG Disclaimer NOTE: Unless otherwise stated, all tissue is formalin-fixed and paraffin-embedded. Some or all of the immunohistochemical tests reported herein may have been developed and their performance characteristics determined by [facility]. They have not been cleared or approved by the U.S. Food and Drug Administration (FDA). However, the FDA has determined that such clearance or approval is not necessary. This laboratory is certified under the Clinical Laboratory Improvement Amendments of 1988 (CLIA) as qualified to perform high complexity clinical laboratory testing. Copies To: Shereen Ltaham MD [address] [address] Aaron Pringle MD [facility] [address] [place] [phone] ----- ------- Signed (signature on file) Xiomara Rowan MD 07/29/25 1020 ----- ------- END OF REPORT us Generic External Data Provider LAB BLOOD ORDERAB LES Final Result [facility] [address] [place] [address] [phone] * NM SENTINEL NODE W IMAGING (07/27/2025 7:47 AM EDT) Anatomical Region Laterality Modality Nuclear Medicine 07/27/2025 7:47 AM EDT Narrative 07/27/2025 11:07 AM EDT [place] [address] Nuclear Medicine Report Signed Patient: Azra Cast MR#: [id number] : 1975 Acct:[id number] Age/Sex: 49 / F ADM Date: 07/27/25 Loc: [facility] Attending Dr: Aaron Pringle MD Ordering Physician: Aaron Pringle MD Date of Service: 07/27/25 Procedure(s): NM sentinel node w imaging Accession Number(s): [id number] cc: Shereen Latham MD; Aaron Pringle MD Reason for Exam: LEFT BREAST CANCER - INVASIVE DUCTAL CA EXAMINATION: Left breast lymphoscintigraphy. CLINICAL INDICATION: Left breast invasive ductal cancer. COMPARISON: Mammogram 06/28/2025. TECHNIQUE: Following explaining left breast lymphoscintigraphy procedure, benefits and risk, a written consent was obtained. 4% lidocaine jelly was applied around the left breast areola often are before the exam. On nuclear medicine table patient was placed supine and the area around the left breast area was cleaned in a sterile fashion. 0.5 mCi of 99m technetium Tilmanocept was divided in 4 equal doses and injected in 4 quadrants around the left breast areola and imaging obtained 30 minutes later. Patient tolerated procedure extremely well. Findings/ NM/NM sentinel node w imaging impression: There is isotope activity on the left breast areola. There are 2 sentinel nodes seen within the left anterior axilla on 30 minutes of imaging. No additional isotope activity seen along the medial breast or internal mammary nodes. Electronically signed by: Sharath Sousa MD 07/27/2025 11:04 AM EDT Dictated By: Sharath Sousa MD Signed By: <Electronically signed by Sharath Sousa MD in OV> 07/27/25 1104 DD/ 0747 TD/TT: 07/27/25 0910 Activities Officer: [facility] Procedure Note Donotuseinterpreter, Image - 07/27/2025 [place] [address] Nuclear Medicine Report Signed Patient: Maged Cast#: [id number] : 1975Acct:[id number] Age/Sex: 49 / FADM Date: 07/27/25 Loc: [facility] Attending Dr: Aaron Pringle MD Ordering Physician: Aaron Pringle MD Date of Service: 07/27/25 Procedure(s): NM sentinel node w imaging Accession Number(s): [id number] cc: Shereen Latham MD; Aaron Pringle MD Reason for Exam: LEFT BREAST CANCER - INVASIVE DUCTAL CA EXAMINATION: Left breast lymphoscintigraphy. CLINICAL INDICATION: Left breast invasive ductal cancer. COMPARISON: Mammogram 06/28/2025. TECHNIQUE: Following explaining left breast lymphoscintigraphy procedure, benefits and risk, a written consent was obtained. 4% lidocaine jelly was applied around the left breast areola often are before the exam. On nuclear medicine table patient was placed supine and the area around the left breast area was cleaned in a sterile fashion. 0.5 mCi of 99m technetium Tilmanocept was divided in 4 equal doses and injected in 4 quadrants around the left breast areola and imaging obtained 30 minutes later. Patient tolerated procedure extremely well. Findings/ NM/NM sentinel node w imaging impression: There is isotope activity on the left breast areola. There are 2 sentinel nodes seen within the left anterior axilla on 30 minutes of imaging. No additional isotope activity seen along the medial breast or internal mammary nodes. Electronically signed by: Sharath Sousa MD 07/27/2025 11:04 AM EDT RP Dictated By: Sharath oSusa MD Signed By: <Electronically signed by Sharath Sousa MD in OV> 07/27/25 1104 DD/ 0747 TD/TT: 07/27/25 0910 Activities Officer: FARIBA [facility] External Provider IMG NM PROCEDURES Final Result * Referral to Obstetrics / Gynecology (07/24/2025) Shereen Latham MD OUTPATIENT REFERRAL ORDERA BLES Final Result * XR Hand 3+Views Bilateral (07/20/2025 2:25 PM EDT) Anatomical Region Laterality Modality Upper Extremities, Hand Bilateral Radiogra phic Imaging 07/20/2025 2:25 PM EDT Narrative 07/20/2025 2:41 PM EDT [address] [address] XRay Report Signed Patient: Azra Cast MR#: [id number] : 1975 Acct:[id number] Age/Sex: 49 / F ADM Date: 07/20/25 Loc: [facility] Attending Dr: Shereen Latham MD Ordering Physician: Junie Padron MD Date of Service: 07/20/25 Procedure(s): XR Hand Bilat min 3v Accession Number(s): [id number] cc: Shereen Latham MD; Junie Padron MD [...] 07/20/25 1438 DD/ 1425 TD/TT: 07/20/25 1427 Activities Officer: Procedure Note Donotuseinterpreter, Image - 07/20/[address] [address] XRay Report Signed Patient: Maged Cast#: [id number] : 1975Acct:[id number] Age/Sex: 49 / FADM Date: 07/20/25 Loc: [facility] Attending Dr: Shereen Latham MD Ordering Physician: Junie Padron MD Date of Service: 07/20/25 Procedure(s): XR Hand Bilat min 3v Accession Number(s): [id number] cc: Shereen Latham MD; Junie Padron MD [...] 07/20/25 1438 DD/ 1425 TD/TT: 07/20/25 1427 Activities Officer: us Junie Raygoza MD IMG XR PROCEDURES Final Result * (ABNORMAL) Sed Rate by Modified Westergren (07/20/2025 1:55 PM EDT) Erythrocyte Sedimentation Rate 34(H) 0 - 20 MM/HR [facility] Comment:Patients with polycy themia and many hemoglobin abnormalitiesmay have depressed sed rates whereas patients with anemiamay have elevated sed rates. Blood Venous blood specimen / Unknown 07/20/2025 1:55 PM EDT 07/20/2025 4:03 PM EDT us Junie Raygoza MD LAB BLOOD ORDERAB LES Final Result Performing Organization Address City/[facility]/ZIP Co de Phone Number [facility] [address] [place] [phone] * (ABNORMAL) C-reactive Protein (07/20/2025 1:55 PM EDT) Pathologist [facility] C Reactive Protein 2.46(H) < or = 0.50 mg/dL [facility] Blood Venous blood specimen / Unknown 07/20/2025 1:55 PM EDT 07/20/2025 4:46 PM EDT us Junie Raygoza MD LAB BLOOD ORDERAB LES Final Result Performing Organization Address [facility]/ZIP Co de Phone Number [facility] [address] [place] [phone] * Uric acid (07/20/2025 1:55 PM EDT) Uric Acid 5.7 2.4 - 5.7 mg/dL [facility] Blood Venous blood specimen / Unknown 07/20/2025 1:55 PM EDT 07/20/2025 4:46 PM EDT us Junie Raygoza MD LAB BLOOD ORDERAB LES Final Result [facility] [address] [place] [phone] * Gross and Microscopic Level 5 (06/28/2025 10:55 AM EDT) 06/28/2025 10:5 5 AM EDT 06/28/2025 11:08 AM EDT Narrative [facility] - 07/05/2025 2:23 PM EDT ----- ------- Name: Azra Cast Age/Sex: 49/F : 1975 Unit#: [id number] Attend Dr: Aaron Pringle MD Re06/28/25 Status: [facility] Location: [facility] Disch: ----- ------- SPEC : [id number] RECD: 06/28/25-1108 STATUS: CRAIG ANDERSEN NUM: [id number] MAYA: 06/28/25-[address]: Aaron Pringle MD ENTERED: 06/28/25-1110 SP TYPE: Surgical OTHR DR: Shereen Latham MD ORDERED: Gross Micro L5, ER, DC, IOC, IHC, Add. immunos, IHC ER/DC/Her2N/4, Ki-67, p63, SMM, [id number] Diagnosis Breast, left, lumpectomy: - Invasive ductal [...] from posterior Lymph nodes Number examined: 0 Ashley nodes: 0 Axillary nodes: 0 CONTINUED ON NEXT PAGE ----- ------- Name: Azra aCst Age/Sex: 49/F : 1975 Unit#: [id number] Attend Dr: Aaron Pringle MD Re06/28/25 Status: [facility] Location: [facility] Disch: ----- ------- SPEC : [id number] RECD: 06/28/25 STATUS: CRAIG ANDERSEN NUM: [id number] MAYA: 06/28/25-[address]: Aaron Pringle MD ENTERED: 06/28/25-1110 SP TYPE: Surgical OTHR DR: Shereen Latham MD ORDERED: Gross Micro L5, ER, DC, IOC, IHC, Add. immunos, IHC ER/DC/Her2N/4, Ki-67, p63, SMM, [id number] Diagnosis (Continued) Number involved: N/A With macrometastases: [...] Azra Cast Age/Sex: 49/F : 1975 Unit#: [id number] Attend Dr: Aaron Pringle MD Re06/28/25 Status: [facility] Location: [facility] Disch: ----- ------- SPEC : [id number] RECD: 06/28/25-1108 STATUS: CRAIG ANDERSEN NUM: [id number] MAYA: 06/28/25-[address] [facility] [address]: Aaron Pringle MD ENTERED: 06/28/25-1111 SP TYPE: Surgical OTHR DR: Shereen Latham MD ORDERED: Gross Micro L5, ER, DC, IOC, IHC, Add. immunos, IHC ER/DC/Her2N/4, Ki-67, p63, SMM, [id number] Gross Description (Continued) fatty parenchyma is otherwise unremarkable without additional discrete abnormality. Keller Machine Operator sections to include entire area of ill-defined [...] Envision+ Dual Link System-HRP. Progesterone receptor: Clone ScY733; Kind[employer] Network Mach 4 detection system. Her-2/perez immunohistochemistry performed in accordance with ASCO/CAP recommendations (2007) and update (2013). Hercep Test Detection system: Polymer type Scoring criteria: For ER/DC and Her-2/perez: All internal (if present) and external controls react appropriately. CONTINUED ON NEXT PAGE ----- ------- Name: Azra Cast Age/Sex: 49/F : 1975 [id number] Unit#: [id number] Attend Dr: Aaron Pringle MD Re06/28/25 Status: [facility] Location: [facility] Disch: ----- ------- SPEC : [id number] RECD: 06/28/25 STATUS: CRAIG ANDERSEN NUM: [id number] MAYA: 06/28/25-[address]: Aaron Pringle MD ENTERED: 06/28/25 SP TYPE: Surgical OTHR DR: Shereen Latham MD ORDERED: Gross Micro L5, ER, DC, IOC, IHC, Add. immunos, IHC ER/DC/Her2N/4, Ki-67, p63, SMM, [id number] Gross Description (Continued) ER and DC immunostains [...] Arch of Pathol Lab Med, 142, 2018: 7665-5683. Marce EDMONDS, Margot VASQUEZ, et al. Estrogen and Progesterone Receptor Testing in Breast Cancer: ASCO/CAP Guideline Update. Arch of Pathol Lab Med, 144, 2020: 545-563. Thanh N, Cristel P, et al. Adjuvant abemaciclib combined with endocrine therapy for high- risk early breast cancer: updated efficacy and Ki-67 analysis from the [facility] study. Jennie Oncol. 2020;32(12):9946-1503. This case was reviewed intradepartmentally; results were communicated to Dr. Pringle on 07/05/2025. Special studies ordered and performed: Immunostains for ER, DC, HER2, Ki 67, p63 and smooth muscle myosin IHC S/NG Disclaimer NOTE: Unless otherwise stated, all tissue is formalin-fixed and paraffin-embedded. Some or all of the immunohistochemical tests reported herein may have been developed and their performance characteristics determined by [facility]. They have not been cleared or [...] Name: Azra Cast Age/Sex: 49/F : 1975 [id number] Unit#: [id number] Attend Dr: Aaron Pringle MD Re06/28/25 Status: [facility] Location: [facility] Disch: ----- ------- SPEC : [id number] RECD: 06/28/25 STATUS: CRAIG ANDERSEN NUM: [id number] MAYA: 06/28/25-[address]: Aaron Pringle MD ENTERED: 06/28/25-1111 SP TYPE: Surgical OTHR DR: Shereen Latham MD ORDERED: Gross Micro L5, ER, DC, IOC, IHC, Add. immunos, IHC ER/DC/Her2N/4, Ki-67, p63, SMM, [id number] Copies To: Shereen Latham MD [address] [phone] Aaron Pringle MD [facility] [address] [place] [phone] ----- ------- Signed (signature on file) Beck Whatley MD 07/05/25 1423 ----- ------- END OF REPORT us Generic External Data Provider LAB BLOOD ORDERAB LES Final Result [facility] [address] [place] [phone] * BI MM SURGICAL SPECIMEN (06/28/2025 10:13 AM EDT) Anatomical Region Laterality Modality Breast Bilateral Mammography 06/28/2025 10:1 3 AM EDT Narrative 06/28/2025 11:09 AM EDT [address] [id number] Mammography Report Signed Patient: Azra Cast MR#: [id number] 3774 : 1975 Acct:[id number] Age/Sex: 49 / F ADM Date: 06/28/25 Loc: [facility] Attending Dr: Aaron Pringle MD Ordering Physician: Aaron Pringle MD Results: Date of Service: 06/28/25 Follow Up: Procedure(s): MM surgical specimen Accession Number(s): [id number] cc: Shereen Latham MD; Aaron Pringle MD Single left breast specimen radiograph demonstrates a tag with the barbell clip and a second tag with a top hat clip. Electronically signed by: Cara Rodriges DO 06/28/2025 11:07 AM EDT Dictated By: Cara Rodriges DO Signed By: <Electronically signed by Cara Rodriges DO in OV> 06/28/25 1107 DD/ 1013 TD/TT: 06/28/25 1104 Activities Officer: Procedure Note Donotuseinterpreter, Image - 06/28/[address] [address] [id number] Mammography Report Signed Patient: Nicolas CastR#: [id number] : 1975Acct:[id number] Age/Sex: 49 / FADM Date: 06/28/25 Loc: [facility] Attending Dr: Aaron Pringle MD Ordering Physician: Aaron Pringleesults: Date of Service: 06/28/25Follow Up: Procedure(s): MM surgical specimen Accession Number(s): [id number] cc: Shereen Latham MD; Aaron Pringle MD Single left breast specimen radiograph demonstrates a tag with the barbell clip and a second tag with a top hat clip. Electronically signed by: Cara Rodriges DO 06/28/2025 11:07 AM EDT RP Dictated By: Cara Rodriges DO Signed By: <Electronically signed by Cara Rodriges DO in OV> 06/28/25 1107 DD/ 1013 TD/TT: 06/28/25 1104 Activities Officer: [facility] External Provider IMG BI PROCEDURES Edited Result - Final * XR Chest 1 View (06/14/2025 12:37 PM EDT) Anatomical Region Laterality Modality Chest Radiographic Celina ging 06/14/2025 12:3 7 PM EDT Narrative 06/14/2025 1:54 PM EDT [place] [address] XRay Report Signed Patient: Azra Cast MR#: [id number] : 1975 Acct:[id number] Age/Sex: 49 / F ADM Date: 06/14/25 Loc: [facility] Attending Dr: Ordering Physician: Corrina Badillo PA-C Date of Service: 06/14/25 Procedure(s): XR chest 1V Accession Number(s): [id number] cc: Shereen Latham MD; Corrina Badillo PA-C [...] 06/14/25 1351 DD/ 1237 TD/TT: 06/14/25 1348 Activities Officer: Procedure Note Donotuseinterpreter, Image - 06/14/[address] [address] XRay Report Signed Patient: Maged Cast#: [id number] : 1975Acct:[id number] Age/Sex: 49 / FADM Date: 06/14/25 Loc: [facility] Attending Dr: Ordering Physician: Corrina Badillo PA-C Date of Service: 06/14/25 Procedure(s): XR chest 1V Accession Number(s): [id number] cc: Shereen Latham MD; Corrina Badillo PA-C [...] Pete Price MD 06/14/2025 01:51 PM EDT Dictated By: Pete Price MD Signed By: <Electronically signed by Pete Price MD in OV> 06/14/25 1351 DD/ 1237 TD/TT: 06/14/25 1348 Activities Officer: us [facility] External Provider IMG XR PROCEDURES Final Result * POCT Rapid Influenza A ORELLANA ID NOW (06/14/2025 12:00 PM EDT) Only the most recent of2 resultswithin the time period is included. Influenza A Negative Negative, Indeterminate [facility] QC Media Lot # [id number] [facility] Lot# Expiration Date ,08,026 [facility] Swab 06/14/2025 12:0 0 PM EDT Junie Upton MD POINT OF CARE TEST EN TER/EDIT ORDERABLES Final Result Performing Organization Address [facility] de Phone Number [facility] [address] [place] [phone] * POCT Rapid Influenza B ORELLANA ID NOW (06/14/2025 11:57 AM EDT) Only the most recent of2 resultswithin the time period is included. Influenza B Negative Negative, Indeterminate [facility] QC Media Lot # [id number] [facility] Lot# Expiration Date [facility] Swab 06/14/2025 11:5 7 AM EDT Junie Upton MD POINT OF CARE TEST EN TER/EDIT ORDERABLES Final Result Performing Organization Address [facility] de Phone Number [facility] [address] [place] [phone] * POCT Rapid Covid-19 BinaxNOW (06/14/2025 11:53 AM EDT) Only the most recent of2 resultswithin the time period is included. Rapid COVID Ag Negative QC Media Lot # [id number] Lot# Expiration Date Swab 06/14/2025 11:5 3 AM EDT Junie Upton MD POINT OF CARE TEST EN TER/EDIT ORDERABLES Final Result * MM RF Tag Device Add (06/14/2025 10:00 AM EDT) Anatomical Region Laterality Modality Breast Left Mammography 06/14/2025 10:0 0 AM EDT Narrative 06/14/2025 11:42 AM EDT [facility] [address] [place] [address] Mammography Report Signed Patient: Azra Cast MR#: [id number] : 1975 Acct:[id number] Age/Sex: 49 / F ADM Date: 06/14/25 Loc: [facility] Attending Dr: Aaron Pringle MD Ordering Physician: Aaron Pringle MD Results: Date of Service: 06/14/25 Follow Up: Procedure(s): MM RF Tag device add Accession Number(s): [id number] cc: Shereen Latham MD; Aaron Pringle MD [...] ANESTHESIA: carbonated lidocaine 1%: . LOCALIZATION SYSTEM: -[employer] LOCallizer Wire-Free Guidance System with 12g needle applicator. -Length: 7 cm. 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 TARGET: Top hat clip. ANESTHESIA: carbonated lidocaine . LOCALIZATION SYSTEM: -[employer] LOCallizer Wire-Free Guidance System with 12g needle applicator. -Length: 7 cm. -RADIOFREQUENCY TAG: ID # [id number] RF Tag ID confirmed with LOCalizer Guidance [...] 06/14/25 1139 DD/ 1000 TD/TT: 06/14/25 1100 Activities Officer: Procedure Note Donotuseinterpreter, Image - 06/14/2025 [facility] [address] [place] [address] Mammography Report Signed Patient: Maged Cast#: [id number] : 1975Acct:[id number] Age/Sex: 49 / FADM Date: 06/14/25 Loc: [facility] Attending Dr: Aaron Pringle MD Ordering Physician: Aaron Pringleesults: Date of Service: 06/14/25Follow Up: Procedure(s): MM RF Tag device add Accession Number(s): [id number] cc: Shereen Latham MD; Aaron Pringle MD [...] ANESTHESIA: carbonated lidocaine 1%: . LOCALIZATION SYSTEM: -[employer] LOCallizer Wire-Free Guidance System with 12g needle applicator. -Length: 7 cm. 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 TARGET: Top hat clip. ANESTHESIA: carbonated lidocaine . LOCALIZATION SYSTEM: -[employer] LOCallizer Wire-Free Guidance System with 12g needle applicator. -Length: 7 cm. -RADIOFREQUENCY TAG: ID # [id number] RF Tag ID confirmed with LOCalizer Guidance [...] 06/14/25 1139 DD/ 1000 TD/TT: 06/14/25 1100 Activities Officer: [facility] External Provider IMG BI PROCEDURES Final Result * MM RF Tag Device Left (06/14/2025 10:00 AM EDT) Anatomical Region Laterality Modality Breast Left Mammography 06/14/2025 10:0 0 AM EDT Narrative 06/14/2025 11:42 AM EDT [address] [place] [address] Mammography Report Signed Patient: Azra Cast MR#: [id number] 3774 : 1975 Acct:[id number] Age/Sex: 49 / F ADM Date: 06/14/25 Loc: [facility] Attending Dr: Aaron Pringle MD Ordering Physician: Aaron Pringle MD Results: Date of Service: 06/14/25 Follow Up: Procedure(s): MM RF Tag device Accession Number(s): [id number] cc: Shereen Latham MD; Aaron Pringle MD [...] ANESTHESIA: carbonated lidocaine 1%: . LOCALIZATION SYSTEM: -[employer] LOCallizer Wire-Free Guidance System with 12g needle applicator. -Length: 7 cm. 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 TARGET: Top hat clip. ANESTHESIA: carbonated lidocaine . LOCALIZATION SYSTEM: -[employer] LOCallizer Wire-Free Guidance System with 12g needle applicator. -Length: 7 cm. -RADIOFREQUENCY TAG: ID # [id number] RF Tag ID confirmed with LOCalizer Guidance [...] 06/14/25 1139 DD/ 1000 TD/TT: 06/14/25 1100 Activities Officer: Procedure Note Donotuseinterpreter, Image - 06/14/2025 [facility] [address] [place] [address] Mammography Report Signed Patient: Maged Cast#: [id number] : 1975Acct:[id number] Age/Sex: 49 / FADM Date: 06/14/25 Loc: [facility] Attending Dr: Aaron Pringle MD Ordering Physician: Aaron Pringle MDResults: Date of Service: 06/14/25Follow Up: Procedure(s): MM RF Tag device LT Accession Number(s): [id number] cc: Shereen Latham MD; Aaron Pringle MD [...] ANESTHESIA: carbonated lidocaine 1%: . LOCALIZATION SYSTEM: -[employer] LOCallizer Wire-Free Guidance System with 12g needle applicator. -Length: 7 cm. 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 TARGET: Top hat clip. ANESTHESIA: carbonated lidocaine . LOCALIZATION SYSTEM: -[employer] LOCallizer Wire-Free Guidance System with 12g needle applicator. -Length: 7 cm. -RADIOFREQUENCY TAG: ID # [id number] RF Tag ID confirmed with LOCalizer Guidance [...] 06/14/25 1139 DD/ 1000 TD/TT: 06/14/25 1100 Activities Officer: [facility] External Provider IMG BI PROCEDURES Final Result * BI Mammogram Diagnostic Tomosynthesis Left (06/01/2025 11:25 AM EDT) Anatomical Region Laterality Modality Breast Left Mammography 06/01/2025 11:2 5 AM EDT Narrative 06/01/2025 1:24 PM EDT [address] [address] [id number] Mammography Report Signed with Addenda Patient: Azra Cast MR#: [id number] : 1975 Acct:[id number] Age/Sex: 49 / F ADM Date: 06/01/25 Loc: HO.MRI Attending Dr: Aaron Pringle MD Ordering Physician: Aaron Pringle MD Results: 1Nega tive Date of Service: 06/01/25 Follow Up: 1 Year From [facility] ina Mammogram Procedure(s): MM tomosynthesis diagnostic LT Accession Number(s): [id number] cc: Shereen Latham MD; Aaron Pringle MD [...] and with use of Gadavist gadolinium contrast. Atec introducer localization system is used with grid. LESION: Retroareolar region middle depth. LOCAL ANESTHESIA: 6 mL 1% lidocaine; 10 mL 1% lidocaine with epinephrine. NEEDLE: SecureWatersc 9-gauge vacuum assisted core biopsy device. APPROACH: [...] 06/01/25 1321 DD/ 1125 TD/TT: 06/01/25 1150 Activities Officer: Procedure Note Donotuseinterpreter, Image - 06/07/[address] [address] [id number] Mammography Report Signed with Addenda Patient: Maged Cast#: [id number] : 1975Acct:[id number] Age/Sex: 49 / FADM Date: 06/01/25 Loc: .MRI Attending Dr: Aaron Pringle MD Ordering Physician: Aaron Pringle MDResults: 1Nega tive Date of Service: 06/01/25Follow Up: 1 Year From Orig inal Mammogram Procedure(s): MM tomosynthesis diagnostic LT Accession Number(s): [id number] cc: Shereen Latham MD; Aaron Pringle MD [...] and with use of Gadavist gadolinium contrast. [employer] introducer localization system is used with grid. LESION: Retroareolar region middle depth. LOCAL ANESTHESIA: 6 mL 1% lidocaine; 10 mL 1% lidocaine with epinephrine. NEEDLE: [employer]atersc 9-gauge vacuum assisted core biopsy device. APPROACH: [...] 06/01/25 1321 DD/ 1125 TD/TT: 06/01/25 1150 Activities Officer: [facility] External Provider IMG BI PROCEDURES Edited Result - Final * BI MR Guided Breast Biopsy Left (06/01/2025 9:04 AM EDT) Anatomical Region Laterality Modality Breast Left Magnetic Resonan ce 06/01/2025 9:04 AM EDT Narrative 06/01/2025 1:24 PM EDT [place] [address] Magnetic Resonance Report Signed with Addenda Patient: Azra Cast MR#: [id number] : 1975 Acct:[id number] Age/Sex: 49 / F ADM Date: 06/01/25 Loc: .MRI Attending Dr: Aaron Pringle MD Ordering Physician: Aaron Pringle MD Date of Service: 06/01/25 Procedure(s): MR guided breast biopsy LT Accession Number(s): [id number] cc: Shereen Latham MD; Aaron Pringle MD [...] and with use of Gadavist gadolinium contrast. Status Overload introducer localization system is used with grid. LESION: Retroareolar region middle depth. LOCAL ANESTHESIA: 6 mL 1% lidocaine; 10 mL 1% lidocaine with epinephrine. NEEDLE: Piper 9-gauge vacuum assisted core biopsy device. APPROACH: [...] OV> 06/01/25 1321 DD/ 3 TD/TT: 06/01/251099 Activities Officer: Procedure Note Donotuseinterpreter, Image - 06/07/[address] [address] Magnetic Resonance Report Signed with Addenda Patient: Maged Cast#: [id number] : 1975Acct:[id number] Age/Sex: 49 / FADM Date: 06/01/25 Loc: .MRI Attending Dr: Aaron Pringle MD Ordering Physician: Aaron Pringle MD Date of Service: 06/01/25 Procedure(s): MR guided breast biopsy LT Accession Number(s): [id number] cc: Shereen Latham MD; Aaron Pringle MD [...] and with use of Gadavist gadolinium contrast. [facility] introducer localization system is used with grid. LESION: Retroareolar region middle depth. LOCAL ANESTHESIA: 6 mL 1% lidocaine; 10 mL 1% lidocaine with epinephrine. NEEDLE: [employer]atersc 9-gauge vacuum assisted core biopsy device. APPROACH: [...] Cara Rodriges DO 06/01/2025 01:21 PM EDT Workstation: [employer] Dictated By: Cara Rodriges DO Signed By: <Electronically signed by Cara Rodriges DO in OV> 06/01/25 1321 DD/ 0904 TD/TT: 06/01/25 1100 Activities Officer: [facility] External Provider IMG MRI PROCEDURES Edited Result - Final * (ABNORMAL) Lipid Panel, Standard (12/29/2024 10:53 AM EST) Triglycerides 192(H) <150 mg/dL [facility] Comment:Desirable Triglyceri de: less than 150 mg/dLBorderline High Triglyceride 150-199 mg/dLHigh Triglyceride: 200-499 mg/dLVery High Triglyceride: greater than or equal to 5OO mg/dL Cholesterol 197 <200 mg/dL [facility] Comment:Desirable Cholestero l: less than 200 mg/dLBorderline High Cholesterol: 200-239 mg/dLHigh Cholesterol: greater than 239 mg/dL LDL Cholesterol Calculated 111(H) <100 mg/dL [facility] Comment:Desirable LDL: less than 100 mg/dLNear Optimal/Above Optimal LDL: 110- 129 mg/dLBorderline High LDL: 130-159 mg/dLHigh LDL: 160-189 mg/dLVery High LDL: greater than or equal to 190 mg/dL HDL Cholesterol 48 >40 mg/dL [facility] Comment:Desirable HDL: great er than 40 mg/dL Note: This HDL assay may give artificially low results in patients with liver disease. Blood Venous blood specimen / Unknown 12/29/2024 10:53 AM EST 12/29/2024 1:06 PM EST Shereen Latham MD LAB BLOOD ORDERABLES Final Result Performing Organization Address [facility]/ZIP Co de Phone Number [facility] [address] [place] [address] [phone] * (ABNORMAL) Hm Colonoscopy (07/11/2024) Colonoscopy Abnormal( A) Normal Comment:Herberth Stokes MD tubular adenoma x 3 Herberth Stokes MD HEALTH MAINTENANCE Final Result * Hepatitis Panel, General (06/16/2024 8:22 AM EDT) Hepatitis A IgM Nonreactive Nonreactive [facility] Comment:IgM antibodies to VIRAMONTES V not detected; does not exclude earlyacute or recovered HAV infection. ~Hepatitis B Surface Antibody REACTIVE Nonreactive [facility] Comment:REACTIVE: > 11.99 mI U/mL Hepatitis B Core Antibody Nonreactive Nonreactive [facility] Hepatitis C Antibody Nonreactive Nonreactive [facility] Comment:Antibodies to HCV no t detected; does not exclude early acuteHCV infection. Hepatitis B Surface Ag Negative Negative [facility] Blood Venous blood specimen / Unknown 06/16/2024 8:22 AM EDT 06/16/2024 11:18 AM EDT Shereen Latham MD LAB BLOOD ORDERABLES Final Result Performing Organization Address [facility]/ZIP Co de Phone Number [facility] [address] [place] [address] [phone] * HIV-1/2 Antigen and Antibodies, Fourth Generation, with Reflexes (02/24/2024 8:47 AM EDT) HIV AB/AG Nonreactive Nonreactive [facility] Comment:HIV-1 p24 Ag and/or HIV-1/HIV-2 Ab not detected.A test result that is nonreactive does not exclude thepossibility of exposure to or infection with HIV-1 and/orHIV-2. Nonreactive results in this assay for individualswith prior exposure to HIV-1 and/or HIV-2 may be due toantigen and antibody levels that are below the limit ofdetection of this assay.The Clean PET HIV Ag/Ab Combo assay result andsupplemental assay results should be interpreted inconjunction with the patient's clinical presentation,history and other laboratory results. If the results areinconsistent with clinical evidence, additional testing issuggested to confirm the result. Blood Venous blood specimen / Unknown 02/24/2024 8:47 AM EDT 02/24/2024 11:22 AM EDT Critical access hospital LAB BLOOD ORDERABLES Final Resul t [facility] [address] [place] [phone] * (ABNORMAL) Cologuard?? colon cancer screening (08/27/2023 11:24 AM EDT) Cologuard Result Positive( A) Negative 09/05/2023 10:16 PM EDT [employer] (CLIA #:[id number]) Comment: POSITIVE TEST RESULT. A positive Cologuard [...] screened with both Cologuard and colonoscopy. (Felix Arnett. et al, N Engl J Med 2014;370(14):8525-0609.) Cologuard may produce a false negative or false positive result (no colorectal cancer or precancerous polyp present at colonoscopy follow up). A negative Cologuard test result does not guarantee the absence of CRC or advanced adenoma (pre-cancer). The current Cologuard screening interval is every 3 years. ([place] [employer] and U.S. Multi-Society Task Force). Cologuard performance data in a 10,000 patient pivotal study using colonoscopy as the reference method can be accessed at the following location: www.[employer]/results. Additional description of the Cologuard test process, warnings and precautions can be found at www.cologuard.com. Stool specimen (specimen) 08/27/2023 11:24 AM EDT 08/29/2023 6:48 AM EDT us Shereen Latham MD LAB MOLECULAR DIAGNOSTICS ORDERABLES Final Result [employer] (CLIA #:[id number]) [address] [place], [place] [address], * HPV mRNA E6/E7 (08/12/2018 10:57 AM EDT) HPV mRNA E6/E7 Not Detected NOT DETECTED [facility] Comment: This test was performed using the APTIMA(R) HPV Assay ([employer] This assay detects E6/E7 viral messenger RNA (mRNA) from 14 high-risk HPV types (16,18,31,33,35,39,45,51, 52,56,58,59,66,68). For additional information please refer to: http://[employer].OralWise/faq/EGP158z1 (This link is being provided for informational/ educational purposes only.) The analytical performance characteristics of this assay have been determined by [place], [place]. The modifications have not been cleared or approved by the FDA. This assay has been validated pursuant to the CLIA regulations and is used for clinical purposes. Test Performed by [facility], [facility], [address] [place] [address] Dwaine Morelos M.D., Ph.D., Director of Laboratories , CLIA [id number] Please note: Effective 07/14/2016, HPV testing will be performed using [employer]'s APTIMA test which targets mRNA. Detecting mRNA instead of DNA, as in older methods, offers significant improvements in specificity. 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 Advance Directives and Living Will 07/05/2024 11:59 AM Health Care Proxy Care Teams Contract Writer Relationship Specialty Start Date End Date [place], [place] Shereen [address] [address] PCP - General Family Medicine 11/02/18 Sury Benitez [address] [place] [address] [place] [address] [place] [address] Pulmonary Disease 09/27/24 Nirali Madrid OD [address] [place] [address] [place] [address] Optometry 10/27/24 Li Grande MD [address] [place] [address] Hematology and Oncology 10/27/24 Anselmo Gates MD [address] [facility] [address] [place] [address] Orthopaedic Surgery 10/27/24 Margaret Holman [address] [facility] [address] [place] [address] Cardiology 10/27/24 Herberth Stokes MD [address] [facility] [address] [place] [address] Gastroenterology 10/27/24 Hilton Palacios MD [address] [facility], [address] [place] [address] Neurology 02/06/25 Aaron Pringle MD [address] [facility] [address] [place] [address] General Surgery 03/07/25 Ronda Rodríguez [address] [place] [address] [address] [place] [address] Obstetrics and Gynecology 08/02/25 Pily Delaney Md Pediatric AllergistBox Toe Maker 07/22/[address] [facility] 12/29/24
--- OUTSIDE RECORDS SUMMARY | 2025-08-25 16:56 | XMS_ITS | Encounter Summary ---
Author Organization [employer] Address [address] [facility] 7 [place] [address] Care Team Providers Care Right Of Way Buyer Name Role Phone Shereen Latham MD Primary Care Provider [phone] Nupur Bullock PharmD Unavailable Sury Benitez Unavailable [phone] JuliusLester castellanosn OD Unavailable Li Grande MD Unavailable [phone] Anselmo Gates MD Unavailable Margaret Holman Unavailable Herberth Stokes MD Unavailable [phone] Hilton Palacios MD Unavailable Aaron Pringle MD Unavailable [phone] Lori Batista Unavailable Neelima Raygoza Unavailable Ronda Rodríguez Unavailable Neelima Raygoza Unavailable Encounter Details Date Type Department Care Team (Late st Contact Info) Description 10/22/2023 Orders Only [facility] [address] [place], [place] [phone] Shereen Latham MD [address] [place] [address] Vitamin D deficiency Social History Tobacco Use [...] Michelle Holland, PhD Patient Health Questionnaire-9 Score 10/22/2023 10:42 AM Michelle Holland, PhD documented as of this encounter Plan of Treatment Upcoming Encounters Date Type Department Care Team (Late st Contact Info) Description 09/13/2025 3:15 PM EST Office Visit [facility] [address] [place] [address] Shereen Latham MD [address] [place] [address] documented as of this encounter Visit Diagnoses Diagnosis Vitamin D deficiency documented in this encounter Additional Health Concerns Assessment Noted Time PHQ-9 Depression Total Score: 023 10:42 AM EST documented as of this encounter Care Teams Right Of Way Buyer Relationship Specialty Start Date End Date Shereen Latham MD [address] [place] [address] PCP - General Family Medicine 11/02/18 Nupur Bullock PharmD [address] [place] [phone] Pharmacist Internal Medicine 08/09/24 05/15/25 Sury Benitez [address] [place] [address] [place] [address] [place] [address] Pulmonary Disease 09/27/24 Nirali Madrid OD [address] [place] [address] Optometry 10/27/24 Li Grande MD [address] [place] [address] Hematology and Oncology 10/27/24 Anselmo Gates MD [address] [place] [address] Orthopaedic Surgery 10/27/24 Margaret Holman 11 [facility] [address] [place] [address] Cardiology 10/27/24 Herberth Stokes MD [address] [address] Gastroenterology 10/27/24 Hilton Palacios MD [address] [facility], [address] [place] [address] Neurology 02/06/25 Aaron Pringle MD [address] [place] [address] General Surgery 03/07/25 Lori Batista Registered Nurse 06/15/25 06/15/25 Neelima Raygoza 06/15/25 06/16/25 Ronda Rodríguez [address] [place] [address] [address] [place] [address] Obstetrics and Gynecology 08/02/25 Neelima Raygoza 08/14/25 08/23/25 Pily Delaney Boat PilotEmergency Preparedness Manager 07/22/24 Elie Vicky [facility] Psychology 12/29/24 documented as of this encounter
--- OUTSIDE RECORDS SUMMARY | 2025-08-25 16:56 | XMS_ITS | Clinical Summary ---
Author Organization [facility] Address [address] [place] [address] Phone Care Team Providers Care Shed Hand Name Role Phone Shereen Latham MD Primary Care Provider [phone] Allergies Active Allergy Reactions Criticality Noted Date Comments Amoxicillin 08/13/2025 Sulfamethoxazole-Trimethoprim 2024 Hydrocodone 08/13/2025 Latex 08/13/2025 Ibuprofen 08/13/2025 Medications acetaminophen (TYLENOL) 500 mg tablet TAKE 1 TABLET BY MOUTH EVERY 6 TO 8 HOURS NEEDED FOR PAIN OR FEVER 4 Active albuterol 2.5 mg /3 mL (0.083 %) nebulizer solution INHALE 1 AMPULE USING A NEBULIZER EVERY 4 TO 6 HOURS NEEDED FOR WHEEZING 5 Active Ventolin HFA 90 mcg/actuation inhaler Inhale 2 puffs by mouth 4 (four) times a day if needed. 4 Active allopurinoL (ZYLOPRIM) 100 mg tablet Take 1 tablet (100 mg total) by mouth 2 times daily. 4 Active Fiber-Lax 625 mg tablet TAKE 1 TABLET BY MOUTH EVERY DAY WITH A FULL GLASS OF WATER 5 Active carBAMazepine (TEGretol) 200 mg tablet TAKE 1/2 TABLET BY MOUTH TWICE DAILY IN THE MORNING AND EVENING 5 Active carvediloL (COREG) 6.25 mg tablet TAKE 1 TABLET BY MOUTH TWICE DAILY IN THE MORNING AND IN THE EVENING Active cetirizine (ZyrTEC) 10 mg tablet Take 1 tablet (10 mg total) by mouth. 4 Active cholecalciferol (VITAMIN D-3) 25 mcg (1,000 unit) capsule Take 1 capsule (1,000 Units total) by mouth 1 (one) time each day in the morning. 3 Active clonazePAM (KlonoPIN) 0.5 mg tablet TAKE 1 TABLET BY MOUTH EVERY DAY NEEDED PANIC ATTACK 5 Active diclofenac (VOLTAREN) 1 % topical gel Apply 1 Application topically. 5 Active docusate sodium (COLACE) 100 mg capsule Take 1 capsule (100 mg total) by mouth. at bedtime 5 Active doxycycline (VIBRAMYCIN) 100 mg capsule TAKE 1 CAPSULE BY MOUTH TWICE A DAY FOR 7 DAYS WITH FULL GLASS OF WATER DO NOT LIE DOWN FOR 30 MINS 5 Active fluticasone furoate (Arnuity Ellipta) 100 mcg/actuation blister with device inhaler INHALE 1 PUFF BY MOUTH EVERY DAY AT THE SAME TIME RINSE MOUTH AFTER USING 4 Active fluticasone propion-salmete roL (ADVAIR HFA) 115-21 mcg/actuation inhaler Inhale 2 puffs by mouth 2 times daily. Active folic acid (FOLVITE) 1 mg tablet Take 1 tablet (1,000 mcg total) by mouth 1 (one) time each day in the morning. Active furosemide (LASIX) 40 mg tablet Take 1 tablet (40 mg total) by mouth 1 (one) time each day in the morning. 5 Active hydrocortisone 2.5 % cream APPLY 1 GRAM TOPICALLY TO AFFECTED AREA(S) THREE TIMES DAILY NEEDED FOR IRRITATION 5 Active lidocaine (LIDODERM) 5 % patch APPLY 1 PATCH TOPICALLY TO SKIN, LEAVE ON FOR 12 HOURS AND OFF FOR 12 HOURS DIRECTED Active lisinopriL (PRINIVIL,ZESTR IL) 20 mg tablet Take 2 tablets (40 mg total) by mouth. 9 Active loratadine 10 mg capsule Take 10 mg by mouth. 2 Active LORazepam (ATIVAN) 1 mg tablet TAKE 1 TABLET BY MOUTH EVERY DAY NEEDED FOR SEVERE ANXIETY Active losartan (COZAAR) 25 mg tablet TAKE 1 TABLET BY MOUTH TWICE DAILY IN THE MORNING AND IN THE EVENING 4 Active magnesium oxide (MAG-OX) 400 mg (241.3 elemental magnesium) tablet TAKE 1 TABLET BY MOUTH THREE QID 2 Active methocarbamoL (ROBAXIN) 750 mg tablet Take 1 tablet (750 mg total) by mouth 2 (two) times a day if needed. for pain 4 Active metoprolol succinate (TOPROL-XL) 25 mg 24 hr tablet Take 1 tablet (25 mg total) by mouth. 5 Active metoprolol succinate (TOPROL-XL) 50 mg 24 hr tablet Take 1 tablet (50 mg total) by mouth 2 times daily. Active mometasone (NASONEX) 50 mcg/actuation nasal spray Administer 2 sprays into each nostril daily. 5 Active mupirocin (BACTROBAN) 2 % ointment APPLY TOPICALLY TO THE AFFECTED AREA(S) TWICE DAILY FOR 5 DAYS (NOSTRIL) 4 Active naproxen (NAPROSYN) 500 mg tablet Take 1 tablet (500 mg total) by mouth 2 (two) times a day. for 7 days 5 Active omeprazole (PriLOSEC) [address] capsule Take 1 capsule (20 mg total) by mouth 1 (one) time each day before breakfast. Active oxyCODONE (ROXICODONE) 5 mg immediate release tablet TAKE 1 TABLET BY MOUTH EVERY 6 HOURS NEEDED FOR PAIN (PAIN SCALE 7-10) 5 Active pregabalin (LYRICA) 25 mg capsule Take 3 capsules (75 mg total) by mouth. at bedtime 5 Active Deep Sea Nasal 0.65 % nasal spray INSTILL 1 SPRAY IN EACH NOSTRIL ONCE DAILY NEEDED FOR CONGESTION 5 Active spironolactone (ALDACTONE) 25 mg tablet Take 0.5 tablets (12.5 mg total) by mouth 1 (one) time each day in the morning. Active thiamine 100 mg tablet Take 1 tablet (100 mg total) by mouth 1 (one) time each day in the morning. 5 Active Active Problems Problem Noted Date Diagnosed Date Alcohol abuse 08/25/2025 Anxiety 08/25/2025 Cocaine use 08/25/2025 Depression 08/25/2025 Hypertension 08/25/2025 Bilateral hand pain 07/22/2025 Overview (08/25/2025): -seen by [facility] 08/01/35 s/p injection of thumb trigger finger Sebaceous cyst of labia 06/08/2025 Overview (08/25/2025): -seen by Dr. Pena 06/07/25 Discussed with the patient the finding on pelvic exam sebaceous cyst recommended discontinue shaving the affected area. Instructions given the patient to call if persistent large or tender to call for I D. All questions answered, the patient verbalized understanding Ductal hyperplasia of breast 05/24/2025 Overview (08/25/2025): -LEFT mammogram and US 02/23/25 IMPRESSION: No [...] finding -biopsy with Dr. Fox done 03/06/25, [facility], left, stereotactic core biopsy: -Minute focus of atypical ductal hyperplasia. -Focal gynecomastia-like hyperplasia. -Predominantly benign breast tissue and adipose. -Note from Dr. Pringle 03/16/25 revealed a minute focus of atypical ductal hyperplasia. Findings were discussed in detail and I recommended a wider excision to assure complete removal. She is currently being evaluated for tachycardia and has a residential monitor in place. I recommended a left breast [...] BI-RADS 2 benign. Abnormal mammogram 04/26/2025 Overview (08/25/2025): Hx breast cancer . -Mammogram 04/20/25 ASSESSMENT: [...] 1; 6 mm in size; margins negative. Cardiomyopathy (CMS/HCC V24, CMS/HCC V28) 2024 Multiple pulmonary nodules 04/04/2025 Atrial tachycardia (CMS/HCC V24) 03/01/2025 Overview (08/25/2025): -per note from Margaret Holman 02/27/25 EKG [...] and schedule follow-up for hear rate monitoring. Gout 07/13/2024 Overview (08/25/2025): Lab Results Component Value Date URICACID 5.4 04/19/2025 URICACID 5.7 03/02/2025 URICACID 5.8 (H) 12/29/2024 URICACID 5.9 (H) 08/30/2024 URICACID 5.4 06/16/2024 -Pt initially treated for gout in R 04/21/24 with uric acid 7.9 -Seen by shaker out Dr. Bernstein 05/11/24 or evaluation of acute gout affecting left foot. -Pt admitted 07/25/24-07/2524 for swelling, pain, and warmth in the right knee. Patient had a low fever (100.3 F) and elevated WBC (87201 cells/uL), CRP, and ESR. Orthopedic surgery consulted [...] daily for prophylaxis -Seen by Dr. Clarke shaker out 04/19/25 Continue allopurinol 200 mg daily, plan to repeat acid level before next visit and increase allopurinol titrate allopurinol if needed to reach serum uric acid level <6 mg/dL(2020 [place] [employer] guideline for the management of gout: titrate allopurinol in 100 mg increments every 2 to 4 weeks to achieve the desired serum uric acid level, doses greater than 300 mg/day are often needed to reach desired uric acid target). Tubular adenoma 07/12/2024 Overview (08/25/2025): -completed colonoscopy 07/11/24, showed tubular adenoma x 3 (HFpEF) heart failure with p reserved ejection fraction (CMS/HCC V24, CMS/HCC V28) 06/29/2024 Overview (08/25/2025): -Echocardiogram done 10/18/2021 had shown EF 30-35%, mild LVH. follow-up after that finding. A stress test at that time was incomplete. -Dx with acute congestive heart failure with reduced EF during admission to [facility] 06/22/24. - She was started on [...] effusion and indeterminate diastolic function -Seen by [facility] Cardiology 08/01/24 : exercise nuclear stress [...] again until 07/2024. Last echo 06/23/2024 during [facility] heart failure admission, showed EF 55-60%, [...] Cardiology follow-up 6 months, sooner if needed Hydradenitis 06/29/2024 Overview (08/25/2025): -prescribed doxycycline Iron deficiency anemia 01/11/2024 Overview (08/25/2025): Lab Results Component Value Date FERRITIN 144 03/02/2025 FERRITIN 180 11/08/2024 HGB 11.2 (L) 03/02/2025 HGB 11.4 (L) 12/29/2024 HGB 12.5 07/01/2022 HGB 12.2 01/23/2022 HEMATOCRIT 37.0 07/01/2022 HEMATOCRIT 36.0 01/23/2022 -will continue to monitor Mild reactive airways disease 01/11/2024 Overview (08/25/2025): -Pulmonology note 09/08/24 PFT which revealed a [...] in 6-8 weeks or sooner if needed. Osteoarthritis of right knee 01/11/2024 Generalized anxiety disorder with panic attacks 11/24/2023 Anemia 07/29/2023 Overview (08/25/2025): Lab Results Component Value Date FERRITIN 144 03/02/2025 FERRITIN 180 11/08/2024 HGB 11.2 (L) 03/02/2025 HGB 11.4 (L) 12/29/2024 HGB 12.5 07/01/2022 HGB 12.2 01/23/2022 HEMATOCRIT 37.0 07/01/2022 HEMATOCRIT 36.0 01/23/2022 Pt does not want to take iron orally, she wants to go back to hematology for transfusion - Iron infusions ordered by [employer] DR. Grande - She recieved two sessions of iron infusion, but has not been to her third session - Hematology appointment scheduled on 12/23/23 - Not seeing Dr. Grande anymore and reports she cannot take iron supplements due to constipation. Encouraged to schedule appt to explore other options. 08/24/24 -She reestablished with hematology 08/24/2024 Hypomagnesemia 07/22/2023 Overview (08/25/2025): Received magnesium IV in ER -Dose increased [...] tablet 11/09/24 -ordered repeat labs 12/29/24, normal Peripheral neuropathy 07/22/2023 Overview (08/25/2025): -seen by neurologist Dr. Palacios 02/01/25, dx with occipital neuralgia in setting of fibromyalgia, started on carbamazepine 200mg 1/2 tab bid and recommending follow up in 2 months Past procedures 01/14/24: Peripheral Nerve Stimulation Temporary [...] to pay the co-pay for psychological clearance. Past procedures 01/14/24: Peripheral Nerve Stimulation Temporary [...] to pay the co-pay for psychological clearance. Stage 3 chronic kidney disease ([facility] V24, [facility] V28) 07/20/2023 Pain in both feet 07/14/2023 Overview (08/25/2025): Unclear etiology Osteoarthritis vs peripheral neuropathy, exam, pulses normal, full rom, no swelling or palpable abnormality Plan: Plain x-rays, NCS. Pending on work up will decide on therapy not a good candidate for NSAIDS due to GI upset or tylenol due to elevated LFTs and active alcohol abuse. -referred to Podiatry 05/24/25 Chronic GERD 05/26/2023 Cocaine use disorder in remission 05/26/2023 Palpitations with regular cardiac rhythm 023 Post traumatic stress disorder (PTSD) 05/26/2023 Fibromyalgia 11/16/2022 Overview (08/25/2025): Pt has chronic pain syndrome. Multiple work [...] group 03/02/25, recommended acupuncture clinic on 04/26/25 Primary osteoarthritis of both knees 11/16/2022 Overview (08/25/2025): Seen orthopedics on 06/22/2023 for Osteoporosis of [...] not a suitable candidate at this time. Transaminitis 11/16/2022 Overview (08/25/2025): -On 09/02/22 Pt had ultrasound sound for abdominal pain at [facility] revealing diffusely echogenic parenchyma with focal sparing around the gallbladder. No suspicious lesions. Impression showed liver likely representing hepatic steatosis and non- obstructing right kidney stone. Lab Results Component Value Date AST 03/02/2025 ALT 03/02/2025 ALT 22 02/12/2023 ALT 24 07/01/2022 [...] to determine further management. 03/2025 LFTs normal. 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 Encouraged to continue abstinence. -Vague about drinking, but seemingly still drinking 12/29/24 -reports no EtOH 04/26/25, thiamine and folate were discontinued due to polypharmacy and desire to decrease pill burden 04/26/25 Allergic rhinitis 12/12/2021 Bilateral malignant neoplasm of breast in female ([facility] V24, [facility] V28) 12/12/2021 Overview (08/25/2025): Adenocarcinoma of the right breast with DCIS grade 3, cribriform type, invasive tumor 2.2 cm ER positive, WV positive, HER-2/RON negative, two sentinel nodes negative. -S/[facility]Cytoxan based chemotherapy started Oct, completed [...] being evaluated for tachycardia and has a residential monitor in place. I recommended a left breast [...] Dr. Grande and plan for radiation at [facility] Vitamin D deficiency 12/12/2021 Overview (08/25/2025): Lab Results Component Value Date [id number] 79.4 05/15/2025 [id number] 58.3 06/16/2024 [id number] 106.4 01/04/2024 Atypical glandular cells on cervical Pap smear 1 11/14/2013 Overview (08/25/2025): -Abnormal pap smear January 2011 with 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 Per Dr. Krish Loomis's note from [facility] [employer], pt was due for repeat colposcopy in 2011. -Total Vaginal Hysterectomy 08/27/17 ('with MONICA 2 pathology and negative resection margins'). Per note dated 11/27/17 Dr. Reyes; 'patient to discontinue PAP screening'. -Vaginal pap NILM HPV negative 08/2018, per not no further paps indicated Severe episode of recurrent major depressive disorder, with psychotic features (CMS/HCC V24, CMS/HCC V28) 04/19/2014 Overview (08/25/2025): -has therapist in [place]. Has appt. 12/30/24. Had intake for psychiatry and has follow-up appt in 12/2024. Carpal tunnel syndrome 03/23/2014 Overview (08/25/2025): Nerve conduction study 12/12/2021 reveals severe carpal [...] left surgery Tobacco dependence syndrome 03/23/2014 Overview (08/25/2025): -Cigg/day: 5-6 -Age started: age 10 -Total years smokinyrs -Pack year history: 20 pack year Encouraged smoking cessation resources such as pharmacomtherapy, [facility] smoking cessation group, and [facility] pharmacy smoking cessation clinic Discussed USPSTF [...] node. No change. Ancillary findings as discussed. Encounters Date Type Department Care Team Description 08/24/2025 1:00 PM EDT Consult Orthopedic Surgery - [address] [address] Antony Garrett, SHARA Pain in both feet (Primary Dx); Lumbosacral radiculopathy; Metatarsalgia of left foot; Ingrown right big toenail 08/24/2025 Telephone [facility] Radiation Oncology [address] [place] [phone] Ian Micheline, CT 08/13/2025 2:30 PM EDT - 08/13/2025 7:19 PM EDT Emergency [facility] Emergency [address] [place] [phone] Lawrence Han MD Chest pain, unspecified type (Primary Dx); Shortness of breath Discharge Disposition: Left Against Medical Advice 08/10/2025 Telephone [facility] Radiation Oncology [address] [place] [phone] from Last 3 Months Medical History Medical History Date Comments CHF (congestive heart failure) ([facility] V24, [facility] V28) Hypertension Anxiety Depression Social History Tobacco Use Types Packs/Day Years Used Date Smoking Tobacco: Every Day Cigarettes Smokeless Tobacco: Never Tobacco Cessation:Ready to Q uit: Not Asked; Counseling Given: Not Answered Comments:Patient currently smokes 1-2 cigarettes per day. Prior history of heavy smoking. Alcohol Use Standard Drinks/Week Comments Yes 0 (1 standard drink = 0.6 oz pur e alcohol) Heavy drinker Comments Unknown Sex and Gender Information Value Date Recorded Sex Assigned at Not on file Legal Sex Female 9:51 AM EST Gender Identity Not on file Sexual Orientation Not on file Obstetrics History Para Term AB IAB SAB Ectopic Multiple Livin g Live Births 3 3 Date Outcome GA Total Labor Labor/2nd/3rd Weight Sex Type Anes PTL Emili A1 A5 Name Clin Para Para Para Last Filed Vital Signs Vital Sign Reading Time Taken Comments Blood Pressure 147/107 08/13/2025 7:19 PM EDT Pulse 104 08/13/2025 7:19 PM EDT Temperature 37 C (98.6 F) 08/13/2025 7:19 PM EDT Respiratory Rate 22 08/13/2025 7:19 PM EDT Oxygen Saturation 98% 08/13/2025 7:19 PM EDT Inhaled Oxygen Concentration - - Weight 89.4 kg (197 lb) 08/13/2025 2:35 PM EDT Height 170.2 cm (5' 7 ) 08/13/2025 2:35 PM EDT Body Mass Index 30.85 08/13/2025 2:35 PM EDT Plan of Treatment Upcoming Encounters Date Type Department Care Team (Late st Contact Info) Description 08/31/2025 12:30 PM EDT Appointment [facility] Radiation Oncology [address] [place] [phone] 08/31/2025 1:00 PM EDT Appointment [facility] Radiation Oncology [address] [place] [phone] Pal Ureña MD [address] [place] [address] 09/14/2025 3:00 PM EST Procedure visit Orthopedic Surgery - [place] [address] [facility] [address] [place] [phone] Antony Garrett, DPWilmar [address] [address] Health Maintenance Due Date Last Done Comments Breast Cancer Screening 1973 Zoster Vaccines (1 of 2) 1992 Cervical Cancer Screening: Pap Smear 1994 COVID-19 Vaccine (2 - Juan Miguel risk series) 03/09/2021 02/09/2021 RSV Immunization Adult Patients (1 - Risk 50-74 years 1-dose series) 2023 Hepatitis C Screening 08/11/2024 Social Influencers of Health Screening 08/11/2024 Depression Screening 11/02/2024 Hepatitis A Vaccines (2 of 2 - Risk 2-dose series) 12/30/2024 06/29/2024 Influenza Vaccine (#1) 2025 09/06/2015 Hypertension/CHF/CAD Annual BMP Blood Test 08/25/2026 08/25/2025, 08/13/2025, 09/07/2024, Additional history exists Colorectal Cancer Screening: FIT-DNA (Cologuard) 08/27/2026 08/27/2023 Cholesterol Screening (Lipid Panel) 12/29/2029 12/29/2024, 06/16/2024 DTaP,Tdap,and Td Vaccines (6 - Td or Tdap) 08/10/2030 08/10/2020, 07/16/2007, 07/05/1981, Additional history exists MMR Vaccines Completed 06/29/1978 IPV Vaccines Completed 07/05/1981, 0704/1980, 08/24/1978, Additional history exists Hepatitis B Vaccines [...] Name Priority Date/Time Associated Diagnosis Comments ECG ANNOTATED 08/15/2025 XR CHEST 2 VIEWS STAT 08/13/2025 4:01 PM EDT URINALYSIS WITH REFLEX MICROSCOPIC STAT 08/13/2025 3:50 PM EDT DRUG ABUSE SCREEN 8A PANEL, URINE STAT 08/13/2025 3:50 PM EDT URINALYSIS WITH REFLEX MICROSCOPIC STAT 08/13/2025 3:50 PM EDT HCG, SERUM, QUALITATIVE STAT Add-on 08/13/2025 3:43 PM EDT ACTIVATED PARTIAL THROMBOPLASTIN TIME STAT Add-on 08/13/2025 3:43 PM EDT PROTHROMBIN TIME WITH INR STAT 08/13/2025 3:43 PM EDT VENOUS BLOOD GAS STAT 08/13/2025 3:43 PM EDT CBC WITH AUTO DIFFERENTIAL STAT 08/13/2025 3:43 PM EDT B-TYPE NATRIURETIC PEPTIDE STAT 08/13/2025 3:43 PM EDT MAGNESIUM STAT 08/13/2025 3:43 PM EDT LIPASE STAT 08/13/2025 3:43 PM EDT COMPREHENSIVE METABOLIC PANEL STAT 08/13/2025 3:43 PM EDT CBC AND DIFFERENTIAL STAT 08/13/2025 3:43 PM EDT TROPONIN I HIGH SENSITIVITY Timed 08/13/2025 3:43 PM EDT ECG 12-LEAD STAT 08/13/2025 3:06 PM EDT from Last 3 Months Results * ECG-Annotated (08/15/2025) us Provider Onbase MD ECG ORDERABLES Final Result * XR Chest 2 Views (08/13/2025 4:01 PM EDT) Anatomical Region Laterality Modality Body Radiographic Celina ging 08/13/2025 4:27 PM EDT Impressions 08/13/2025 4:29 PM EDT FINDINGS/IMPRESSION: Lungs are clear. No pleural effusion or pneumothorax. Cardiac silhouette is normal in size. Levoconvex upper thoracic scoliosis is unchanged. -------- FINAL REPORT -------- Dictated By: BINH CARRILLO Dictated Date: 08/13/2025 16:27 ET Assigned Physician: BINH CARRILLO Reviewed and Electronically Signed By: BINH CARRILLO Signed Date: 08/13/2025 16:29 ET Workstation ID: [id number] Transcribed By: Self Edit Transcribed Date: 08/13/2025 16:27 ET Narrative 08/13/2025 4:29 PM EDT XR CHEST 2 VIEWS INDICATION: Pain TECHNIQUE: XR CHEST 2 VIEWS COMPARISON: 05/28/2019 Procedure Note Binh Carrillo MD - 08/13/2025 XR CHEST 2 VIEWS INDICATION: Pain TECHNIQUE: XR CHEST 2 VIEWS COMPARISON: 05/28/2019 IMPRESSION: FINDINGS/IMPRESSION: Lungs are clear. No pleural effusion orpneumothorax. Cardiac silhouette is normal in size. Levoconvex upperthoracic scoliosis is unchanged. -------- FINAL REPORT -------- Dictated By: BINH CARRILLO Dictated Date: 08/13/2025 16:27 ET Assigned Physician: BINH CARRILLO Reviewed and Electronically Signed By: BINH CARRILLO Signed Date: 08/13/2025 16:29 ET Workstation ID: [id number] Transcribed By: Self Edit Transcribed Date: 08/13/2025 16:27 ET Lawrence Han MD IMG XR PROCEDURES Final Result * Urinalysis with reflex microscopic (08/13/2025 3:50 PM EDT) Specific [place] Urine 1.017 1.003 - 1.030 LAB URINALYSIS - AUTOMATED METHOD 08/13/2025 4:[address] [facility] pH, Urine 6.0 5.0 - 8.0 pH LAB URINALYSIS - AUTOMATED METHOD 08/13/2025 4:[address] [facility] Leukocytes, Urine Negative Negative LAB URINALYSIS - AUTOMATED METHOD 08/13/2025 4:[address] [facility] Nitrite, Urine Negative Negative LAB URINALYSIS - AUTOMATED METHOD 08/13/2025 4:[address] [facility] Protein, Urine Negative <=Trace mg/dL LAB URINALYSIS - AUTOMATED METHOD 08/13/2025 4:[address] [facility] Glucose, Urine Negative Negative mg/dL LAB URINALYSIS - AUTOMATED METHOD 08/13/2025 4:[address] [facility] Ketones, Urine Negative Negative mg/dL LAB URINALYSIS - AUTOMATED METHOD 08/13/2025 4:[address] [facility] Urobilinogen, Urine 0.2 0.2 - 1.0 mg/dL LAB URINALYSIS - AUTOMATED METHOD 08/13/2025 4:[address] [facility] Bilirubin, Urine Negative Negative LAB URINALYSIS - AUTOMATED METHOD 08/13/2025 4:[address] [facility] Blood, Urine Negative Negative LAB URINALYSIS - AUTOMATED METHOD 08/13/2025 4:[address] [facility] Urine Urine specimen obtained by clean catch procedure / Unknown Non-blood Collection / Unknown 08/13/2025 3:50 PM EDT 08/13/2025 3:59 PM EDT us Lawrence Han MD LAB URINE ORDERABLES Final Resul t [facility] [address] [place] [address], * (ABNORMAL) Drug abuse screen 8a panel, urine (08/13/2025 3:50 PM EDT) Amphetamine Screen, Ur Negative Negative LAB CHEMISTRY METHOD 4:[address] [facility] Comment:Certain OTC medicati ons containing ephedrine, phenylephrine, pseudoephedrine and phenylpropanolamine can cause false positive results. Barbiturate Screen, Ur Negative Negative LAB CHEMISTRY METHOD 5 4:[address] [facility] Benzodiazepine Screen, Ur Negative Negative LAB CHEMISTRY METHOD 4:[address] [facility] Cocaine Screen, Ur Negative Negative LAB CHEMISTRY METHOD 5 4:[address] [facility] Opiate Screen, Ur Positive(A ) Negative LAB CHEMISTRY METHOD 5 4:[address] [facility] Cannabinoid (THC) Screen, Ur Negative Negative LAB CHEMISTRY METHOD 4:[address] [facility] Comment:Specimens from patie nts taking pantoprazole sodium (Protonix) have been shown to produce false positive results. Oxycodone Screen, Ur Positive(A ) Negative LAB CHEMISTRY METHOD 5 4:[address] [facility] Fentanyl, Ur Negative Negative LAB CHEMISTRY METHOD 4:[address] [facility] Urine Urine specimen obtained by clean catch procedure / Unknown Non-blood Collection / Unknown 08/13/2025 3:50 PM EDT 08/13/2025 3:[address] [facility] - 08/13/2025 4:38 PM EDT Assay cutoffs: Amphetamines 1000 ng/mL Barbiturates 200 ng/mL Benzodiazepines 200 ng/mL Cocaine 300 ng/mL Fentanyl 1 ng/mL Opiates 300 ng/mL Oxycodone 100 ng/mL THC 50 ng/mL Semi-quantitative assay for screening purposes only. Unconfirmed screening result should not be used for non-medical purposes. *ALTERNATE METHOD CONFIRMATION DONE UPON REQUEST ONLY* us Lawrnece Han MD LAB URINE ORDERABLES Final Resul t [facility] [address] [place] [address], * Troponin I high sensitivity (08/13/2025 3:43 PM EDT) High Sensitivity Troponin I 20 <=54 ng/L LAB CHEMISTRY METHOD 08/13/2025 4:[address] [facility] Blood Venous blood specimen / Unknown Venipuncture / Unknown 08/13/2025 3:43 PM EDT 08/13/2025 3:[address] [facility] - 08/13/2025 4:42 PM EDT High levels of biotin in samples may falsely decrease hsTroponin values. Use caution when interpreting hsTroponin results in patients taking biotin who exhibit renal impairment (eGFR <60) or in patients taking more than 20 mg/day of biotin. us Lawrence Han MD LAB BLOOD ORDERABLES Final Resul t [facility] [address] [place] [address], [place] [phone] * (ABNORMAL) CBC auto differential (08/13/2025 3:43 PM EDT) Pathologist [facility] WBC 10.6 4.8 - 10.8 K/mcL LAB HEMETOLOGY METHOD 08/13/2025 4:[address] [facility] RBC 3.70(L) 3.80 - 4.80 M/mcL LAB HEMETOLOGY METHOD 08/13/2025 4:[address] [facility] Hemoglobin 10.6(L) 11.5 - 16.0 g/dL LAB HEMETOLOGY METHOD 08/13/2025 4:[address] [facility] Hematocrit 33.0(L) 35.0 - 47.0 % LAB HEMETOLOGY METHOD 08/13/2025 4:[address] [facility] MCV 88.7 79.0 - 98.0 FL LAB HEMETOLOGY METHOD 08/13/2025 4:[address] [facility] MCH 28.5 27.0 - 32.0 pcg LAB HEMETOLOGY METHOD [facility] MCHC 32.1 32.0 - 37.0 g/dL LAB HEMETOLOGY METHOD 08/13/2025 4:[address] [facility] RDW 14.6 11.0 - 15.0 % LAB HEMETOLOGY METHOD 08/13/2025 4:08 PM [facility] Platelets 263 130 - 400 K/mcL LAB HEMETOLOGY METHOD 08/13/2025 4:08 PM [facility] MPV 10.7 7.0 - 11.0 FL LAB HEMETOLOGY METHOD 08/13/2025 4:08 PM [facility] NRBC 0.0 <1.0 % LAB HEMETOLOGY METHOD 08/13/2025 4:08 PM [facility] NRBC Absolute 0.00 <0.10 K/mcL LAB HEMETOLOGY METHOD 08/13/2025 4:08 PM [facility] Neutrophils Relative 60.6 % LAB HEMETOLOGY METHOD 08/13/2025 4:08 PM [facility] Lymphocytes Relative 29.5 % LAB HEMETOLOGY METHOD 08/13/2025 4:08 PM [facility] Monocytes Relative 6.2 % LAB HEMETOLOGY METHOD 08/13/2025 4:08 PM [facility] Eosinophils Relative 2.8 % LAB HEMETOLOGY METHOD 08/13/2025 4:08 PM [facility] Basophils Relative 0.6 % LAB HEMETOLOGY METHOD 08/13/2025 4:08 PM [facility] Immature Granulocytes Relative 0.3 % LAB HEMETOLOGY METHOD 08/13/2025 4:08 PM [facility] Neutrophils Absolute 6.45 1.50 - 7.00 K/mcL LAB HEMETOLOGY METHOD 08/13/2025 4:08 PM [facility] Lymphocytes Absolute 3.14 1.00 - 5.00 K/mcL LAB HEMETOLOGY METHOD 08/13/2025 4:08 PM [facility] Monocytes Absolute 0.66 0.20 - 1.00 K/mcL LAB HEMETOLOGY METHOD 08/13/2025 4:[address] [facility] Eosinophils Absolute 0.30 0.00 - 0.50 K/[facility] LAB HEMETOLOGY METHOD 08/13/2025 4:[address] [facility] Basophils Absolute 0.06 0.00 - 0.20 K/[facility] LAB HEMETOLOGY METHOD 08/13/2025 4:[address] [facility] Immature Granulocytes Absolute 0.03 0.00 - 0.03 K/[facility] LAB HEMETOLOGY METHOD 08/13/2025 4:[address] [facility] Blood Venous blood specimen / Unknown Venipuncture / Unknown 08/13/2025 3:43 PM EDT 08/13/2025 3:58 PM EDT us Lawrence Han MD LAB BLOOD ORDERABLES Final Resul t Performing Organization Address City/[facility]/ZIP Co de Phone Number [facility] [address] [place] [address], [place] [phone] * APTT (08/13/2025 3:43 PM EDT) [facility] aPTT 32.6 24.1 - 39.3 sec LAB COAGULATION METHOD 08/13/2025 4:[address] [facility] Blood Venous blood specimen / Unknown Venipuncture / Unknown 08/13/2025 3:43 PM EDT 08/13/2025 3:58 PM EDT us Lawrence Han MD LAB BLOOD ORDERABLES Final Resul t [facility] [address] [place] [address], [place] [phone] * Protime-INR (08/13/2025 3:43 PM EDT) Pathologist [facility] Protime 11.4 10.6 - 13.9 sec LAB COAGULATION METHOD 08/13/2025 4:[address] [facility] INR 0.9 LAB COAGULATION METHOD 08/13/2025 4:[address] [facility] Blood Venous blood specimen / Unknown Venipuncture / Unknown 08/13/2025 3:43 PM EDT 08/13/2025 3:58 PM EDT us Lawrence Han MD LAB BLOOD ORDERABLES Final Resul t Performing Organization Address City/[facility]/ZIP Co de Phone Number [facility] [address] [place] [address], [place] [phone] * hCG Qualitative (08/13/2025 3:43 PM EDT) hCG Qual Negative Negative 08/13/2025 4:[address] [facility] Blood Venous blood specimen / Unknown Venipuncture / Unknown 08/13/2025 3:43 PM EDT 08/13/2025 3:58 PM EDT us Lawrence Han MD LAB BLOOD ORDERABLES Final Resul t Performing Organization Address [facility] Co de Phone Number [facility] [address] [place] [address], [place] [phone] * B-type natriuretic peptide (08/13/2025 3:43 PM EDT) BNP 42 <=100 pcg/mL LAB CHEMISTRY METHOD 08/13/2025 4:[address] [facility] Blood Venous blood specimen / Unknown Venipuncture / Unknown 08/13/2025 3:43 PM EDT 08/13/2025 3:59 PM EDT us Lawrence Han MD LAB BLOOD ORDERABLES Final Resul t Performing Organization Address City/[facility]/ZIP Co de Phone Number [facility] [address] [place] [address], [place] [phone] * (ABNORMAL) Magnesium (08/13/2025 3:43 PM EDT) [facility] Magnesium 1.4(L) 1.9 - 2.6 mg/dL LAB CHEMISTRY METHOD 08/13/2025 4:[address] [facility] Blood Venous blood specimen / Unknown Venipuncture / Unknown 08/13/2025 3:43 PM EDT 08/13/2025 3:58 PM EDT us Lawrence Han MD LAB BLOOD ORDERABLES Final Resul t Performing Organization Address [facility] Co de Phone Number [facility] [address] [place] [address], [place] [phone] * Lipase (08/13/2025 3:43 PM EDT) [facility] Lipase 42 13 - 75 unit/L LAB CHEMISTRY METHOD 08/13/2025 4:[address] [facility] Blood Venous blood specimen / Unknown Venipuncture / Unknown 08/13/2025 3:43 PM EDT 08/13/2025 3:58 PM EDT us Lawrence Han MD LAB BLOOD ORDERABLES Final Resul t Performing Organization Address City/[facility]/ZIP Co de Phone Number [facility] [address] [place] [address], [place] [phone] * (ABNORMAL) Venous blood gas (08/13/2025 3:43 PM EDT) [facility] pH, Jw 7.44(H) 7.32 - 7.42 pH 08/13/2025 4:[address] [facility] pCO2, Jw 45 41 - 51 mmHg 08/13/2025 4:[address] [facility] pO2, Jw 50(H) 25 - 40 mmHg 08/13/2025 4:01 PM [facility] HCO3, Venous 29.1(H) 22.0 - 26.0 mmol/L 08/13/2025 4:01 PM [facility] O2 Sat, Jw 84.5 % [facility]/13[facility]20[facility] Base Excess, Jw 5.7(H) -2.0 - 2.0 mmol/L 08/13/2025 4:01 PM [facility] Blood Venous blood specimen / Unknown Venipuncture / Unknown 08/13/2025 3:43 PM EDT 08/13/2025 3:58 PM EDT us Lawrence Han MD LAB BLOOD ORDERABLES Final Resul t [facility] [address] [place] [address], * (ABNORMAL) Comprehensive metabolic panel (08/13/2025 3:43 PM EDT) Sodium 137 133 - 145 mmol/L LAB CHEMISTRY METHOD 08/13/2025 4:35 PM [facility] Potassium 3.7 3.5 - 5.5 mmol/L LAB CHEMISTRY METHOD 08/13/2025 4:35 PM [facility] Comment:Hemolysis present Chloride 103 96 - 110 mmol/L LAB CHEMISTRY METHOD 08/13/2025 4:35 PM [facility] CO2 27 21 - 32 mmol/L LAB CHEMISTRY METHOD 08/13/2025 4:35 PM [facility] Anion Gap 7 3 - 11 LAB CHEMISTRY METHOD 08/13/2025 4:35 PM [facility] Glucose 123(H) 70 - 100 mg/dL LAB CHEMISTRY METHOD 08/13/2025 4:35 PM [facility] BUN 23 5 - 25 mg/dL LAB CHEMISTRY METHOD 08/13/2025 4:35 PM [facility] Creatinine 0.87 0.50 - 1.10 mg/dL LAB CHEMISTRY METHOD 08/13/2025 4:35 PM [facility] eGFR 81 >=60 mL/min/1. 73m2 LAB CHEMISTRY METHOD 08/13/2025 4:35 PM [facility] Comment:Calculation based on the Chronic Kidney Disease Epidemiology Collaboration (CKD-EPI) equation refit without adjustment for race. BUN/Creatinine Ratio 26.4 LAB CHEMISTRY METHOD 08/13/2025 4:35 PM [facility] Calcium 9.1 8.5 - 10.5 mg/dL LAB CHEMISTRY METHOD 08/13/2025 4:35 PM [facility] AST (SGOT) 40 10 - 42 unit/L LAB CHEMISTRY METHOD 08/13/2025 4:35 PM [facility] ALT (SGPT) 33 10 - 60 unit/L LAB CHEMISTRY METHOD 08/13/2025 4:35 PM [facility] Alkaline Phosphatase 144(H) 42 - 121 unit/L LAB CHEMISTRY METHOD 08/13/2025 4:35 PM [facility] Total Protein 6.8 6.0 - 8.0 g/dL LAB CHEMISTRY METHOD 08/13/2025 4:35 PM [facility] Albumin 3.4 3.2 - 5.0 g/dL LAB CHEMISTRY METHOD 08/13/2025 4:35 PM [facility] Total Bilirubin 0.4 0.0 - 1.4 mg/dL LAB CHEMISTRY METHOD 08/13/2025 4:35 PM [facility] Blood Venous blood specimen / Unknown Venipuncture / Unknown 08/13/2025 3:43 PM EDT 08/13/2025 3:58 PM EDT Lawrence Han MD LAB BLOOD ORDERABLES Final Resul t [facility] [address] [place] [address], * ECG 12 lead (08/13/2025 3:06 PM EDT) Ventricular Rate ECG 96 BPM GEMUSE Atrial Rate 96 BPM GEMUSE P-R Interval 200 ms GEMUSE QRS Duration 82 ms GEMUSE Q-T Interval 390 ms GEMUSE QTc 492 ms GEMUSE P Wave [place] 87 degrees GEMUSE R [place] 7 degrees GEMUSE T [place] 63 degrees GEMUSE ECG Interpretation Normal sinus rhythm Nonspecific T wave abnormality Prolonged QT Abnormal ECG When compared with ECG of 28-MAY-2019 01:04, Nonspecific T wave abnormality now evident in Lateral leads Confirmed by Radha PICKENS JAMES ([id number]) on 08/14/2025 12:53:07 PM GEMUSE 08/13/2025 3:06 PM EDT 08/14/2025 12:53 PM EDT Lawrence Han MD ECG ORDERABLES Final Result [facility] from Last 3 Months Insurance MEDICAID - [place] Care Teams Shed Hand Relationship Specialty Start Date End Date Wash[place], MD Shereen [address] [place] [phone] [facility] - General 01/13/1996
--- OUTSIDE RECORDS SUMMARY | 2025-08-25 16:57 | XMS_ITS ---
Author Organization [employer] Address [address] [facility] 7t [place] [address] Care Team Providers Care Cooking Instructor Name Role Phone Shereen Latham MD Primary Care Provider [phone] Sury Benitez Unavailable [phone] Nirali Madrid OD Unavailable Li Grande MD Unavailable [phone] Anselmo Gates MD Unavailable Margaret Holman Unavailable Herberth Stokes MD Unavailable [phone] Hilton Palacios MD Unavailable [phone] Aaron Pringle MD Unavailable [phone] Ronda Rodríguez Unavailable [facility] Status:Closed (Closed) Start date:08/14/2025 Enrollment reason:ADT Feed End date:08/23/2025 Close reason:Transferred to Community Partner Overview CP Assigned Patient- Pt went to [facility] ED on 08/13/25. Continued Care and Services Coordination
--- OUTSIDE RECORDS SUMMARY | 2025-08-25 16:57 | XMS_ITS | Encounter Summary ---
Author Organization [employer] Address [address] [facility] 7 [place] [address] Care Team Providers Care Agent Producer Name Role Phone Shereen Latham MD Primary Care Provider [phone] Sury Benitez Unavailable [phone] Nirali Madrid OD Unavailable Li Grande MD Unavailable [phone] Anselmo Gates MD Unavailable Margaret Holman Unavailable Herberth Stokes MD Unavailable [phone] Hilton Palacios MD Unavailable [phone] Aaron Pringle MD Unavailable [phone] Ronda Rodríguez Unavailable Neelima Raygoza Unavailable Reason for Visit * Reason Comments Care Coordination Communication to pts assigned CP Coordinator Encounter Details Date Type Department Care Team (Latest Contact Info) Description 08/23/2025 Patient Outreach [facility] MED & PEDS [address] [place], [place] [phone] Shereen Latham MD [address] [place] [address] Care Coordination (Communication to pts assigned CP Coordinator) Social History Tobacco Use Types Packs/Day Years [...] as of this encounter Progress Notes * Neelima Raygoza - 08/23/2025 3:13 PM EDT Tra, I am writing to you as our records indicate that the following patient is engaged in your program: Patient Azra Babcock 1975.This email is to notify you that we have received notificationthat the patient went to [facility] ED on 1975 . The patient has been successfully outreached by [facility] [place] tri[facility] nurse for a status check. Pt today denies chest pain/pressure, shortness of breath, states it's gone and attributes what happened to too much going on, anxiety, it was a panic attack. She states the ER did an EKG, chest xray, labs and then she left AMA If there are any questions or concerns, please feel free to reach out to me. Thank You documented in this encounter Plan of Treatment Upcoming Encounters Date Type Department Care Team (Late st Contact Info) Description 09/13/2025 3:15 PM EST Office Visit [facility] MEDICINE [address] [place] [address] Shereen Latham MD [address] [place] [address] documented as of this encounter Visit Diagnoses Not on filedocumented in this encounter Additional Health Concerns Assessment Noted Time PHQ-9 Depression Total Score: 21 05/24/ 025 11:03 AM EDT documented as of this encounter Care Teams Agent Producer Relationship Specialty Start Date End Date Shereen Latham MD [address] [place] [address] PCP - General Family Medicine 11/02/18 Sruy Benitez [address] [place] [address] [place] [address] [place] [address] Pulmonary Disease 09/27/24 Nirali Madrid OD [address] [place] [address] Optometry 10/27/24 Li Grande MD [address] [place] [address] Hematology and Oncology 10/27/24 Anselmo Gates MD [address] [place] [address] Orthopaedic Surgery 10/27/24 Margaret Holman [address] 3rd [place] [address] Cardiology 10/27/24 Herberth Stokes MD [address] [facility] 3rd [place] [address] Gastroenterology 10/27/24 Hilton Palacios MD [address] [facility], [address] [place] [address] Neurology 02/06/25 Aaron Pringle MD [address] [facility] [address] [place] [address] General Surgery 03/07/25 Ronda Rodríguez [address] [place] [address] [address] [place] [address] Obstetrics and Gynecology 08/02/25 Neelima Raygoza 08/14/25 08/23/25 Pily Delaney Wheel PolisherMedical Safety Director 07/22/24 Elie Vicky [facility] Psychology 12/29/24 documented as of this encounter
--- OUTSIDE RECORDS SUMMARY | 2025-08-25 16:57 | XMS_ITS | Encounter Summary ---
Author Organization [employer] Address [address] [facility] 7 [place] [address] Care Team Providers Care Materials Planning Manager Name Role Phone Shereen Latham MD Primary Care Provider [phone] Nupur Bullock PharmD Unavailable Sury Benitez Unavailable [phone] JuliusLestern OD Unavailable Li Grande MD Unavailable [phone] Anselmo Gates MD Unavailable Margaret Holman Unavailable Herberth Stokes MD Unavailable [phone] Hilton Palacios MD Unavailable [phone] Aaron Pringle MD Unavailable [phone] Lori Batista Unavailable [phone] Neelima Raygoza Unavailable Ronda Rodríguez Unavailable Neelima Raygoza Unavailable Reason for Visit * Reason Onset Date Comments Appointment Request 04/25/2025 Encounter Details Date Type Department Care Team (Late st Contact Info) Description 04/25/2025 Telephone [facility] MEDICINE [address] [place] [address] Shereen Latham MD [address] [place] [address] Appointment Request Social History Tobacco Use Types [...] Description 09/13/2025 3:15 PM EST Office Visit [facility] MEDICINE [address] [place] [address] Shereen Latham MD [address] [place] [address] documented as of this encounter Visit Diagnoses Not on filedocumented in this encounter Additional Health Concerns Assessment Noted Time PHQ-9 Depression Total Score: 22 025 10:17 AM EST documented as of this encounter Care Teams Materials Planning Manager Relationship Specialty Start Date End Date Shereen Latham MD [address] [place] [address] PCP - General Family Medicine 11/02/18 Nupur Bullock, CharleneD [address] [place] [address] Pharmacist Internal Medicine 08/09/24 05/15/25 Sury Benitez [address] [place] [address] Pulmonary Disease 09/27/24 Nirali Madrid OD [address] [place] [address] Optometry 10/27/24 Li Grande MD [address] [place] [address] Hematology and Oncology 10/27/24 Anselmo Gates MD [address] [place] [address] Orthopaedic Surgery 10/27/24 Margaret Holman [address] 3rd [place] [address] Cardiology 10/27/24 Herberth Stokes MD [address]rd [place] [address] Gastroenterology 10/27/24 Hilton Palacios MD [address] [facility], [address] [place] [address] Neurology 02/06/25 Aaron Pringle MD [address] [place] [address] General Surgery 03/07/25 Lori Batista Registered Nurse 06/15/25 06/15/25 Neelima Raygoza 06/15/25 06/16/25 Ronda Rodríguez [address] [place] [address] [address] [place] [address] Obstetrics and Gynecology 08/02/25 Neelima Raygoza 08/14/25 08/23/25 Pily Delaney All Terrain Vehicle TechnicianRn Procedures 07/22/24 Elie Vicky [facility] Psychology 12/29/24 documented as of this encounter
--- OUTSIDE RECORDS SUMMARY | 2025-08-25 16:57 | XMS_ITS | Encounter Summary ---
Author Organization [employer] Address [address] [facility] 7 [place] [address] Care Team Providers Care Sail Finisher Hand Name Role Phone Shereen Latham MD Primary Care Provider [phone] Nupur Bullock PharmD Unavailable Sury Benitez Unavailable [phone] Julius, Nirali OD Unavailable Li Grande MD Unavailable [phone] Anselmo Gates MD Unavailable Margaret Holman Unavailable Herberth Stokes MD Unavailable [phone] Hilton Palacios MD Unavailable [phone] Aaron Pringle MD Unavailable [phone] Lori Batista Unavailable [phone] Neelima Raygoza Unavailable Ronda Rodríguez Unavailable Neelima Raygoza Unavailable Reason for Visit * Reason Onset Date Comments Nurse Triage 01/25/2024 Referral 01/25/2024 Encounter Details Date Type Department Care Team (Late st Contact Info) Description 01/25/2024 Telephone [facility] MEDICINE [address] [place], [place] [phone] Shereen Latham MD [address] [place] [address] Nurse Triage; Referral Social History Tobacco Use [...] vary. Pt wants to be referred to [address] [address]. Adivsed will send to team to review [...] Visit [facility] MEDICINE [address] [place] [address] Shereen Latham MD [address] [place] [address] documented as of this encounter Visit Diagnoses Not on filedocumented in this encounter Additional Health Concerns Assessment Noted Time PHQ-9 Depression Total Score: 21 023 10:42 AM EST documented as of this encounter Care Teams Sail Finisher Hand Relationship Specialty Start Date End Date Shereen Latham MD [address] [place] [address] PCP - General Family Medicine 11/02/18 Nupur Bullock, CharleneD [address] [place] [address] Pharmacist Internal Medicine 08/09/24 05/15/25 Sury Benitez [address] [place] [address] [facility] [address] [place] [address] Pulmonary Disease 09/27/24 Nirali Madrid OD [address] [place] [address] Optometry 10/27/24 Li Grande MD [address] [place] [address] Hematology and Oncology 10/27/24 Anselmo Gates MD [address] [facility] [address] [place] [address] Orthopaedic Surgery 10/27/24 Margaret Holman [address] 3rd [place] [address] Cardiology 10/27/24 Herberth Stokes MD [address] [facility] [address] 3rd [place] [address] Gastroenterology 10/27/24 Hilton Palacios MD [address] [place] [address], [address] [place] [address] Neurology 02/06/25 Aaron Pringle MD [address] [facility] [address] [place] [address] General Surgery 03/07/25 Lori Batista Registered Nurse 06/15/25 06/15/25 Neelima Raygoza 06/15/25 06/16/25 Ronda Rodríguez [address] [place] [address] [address] [place] [address] Obstetrics and Gynecology 08/02/25 Neelima Raygoza 08/14/25 08/23/25 Pily Delaney Spot RemoverInterventional Nurse 07/22/24 Elie BRASHER [facility] Psychology 12/29/24 documented as of this encounter
--- OUTSIDE RECORDS SUMMARY | 2025-08-25 16:57 | XMS_ITS | Clinical Summary ---
Author Organization [facility] Address [address] [facility] [address] [place] [address] Phone Care Team Providers Care Automatic Silk Screen Printer Name Role Phone Unavailable Primary Care Provider [...]
--- OUTSIDE RECORDS SUMMARY | 2025-08-25 16:57 | XMS_ITS | Encounter Summary ---
Author Organization [email or web address] Address 75 [facility] 7 [place] [address] Care Team Providers Care Etl Analyst Name Role Phone Shereen Latham MD Primary Care Provider [phone] Nupur Bullock PharmD Unavailable Sury Benitez Unavailable JuliusLester castellanosn OD Unavailable Li Grande MD Unavailable [phone] Anselmo Gates MD Unavailable Margaret Holman Unavailable Herberth Stokes MD Unavailable [phone] Hilton Palacios MD Unavailable Aaron Pringle MD Unavailable [phone] Lori Batista Unavailable [phone] Neelima Raygoza Unavailable Ronda Rodríguez Unavailable Neelima Raygoza Unavailable Reason for Visit * Reason Onset Date Comments Medication Question 08/25/2024 Encounter Details Date Type Department Care Team ([facility] st Contact Info) Description 08/25/2024 Telephone [facility] MEDICINE 230 [place] [address] Shereen Latham MD 230 [place] [address] Medication Question Social History Tobacco Use Types [...] any questions you can contact pt at [phone]. documented in this encounter Plan of Treatment Upcoming Encounters Date Type Department Care Team (Late st Contact Info) Description 09/13/2025 3:15 PM EST Office Visit [facility] MEDICINE 230 [place] [address] Shereen Latham MD 230 [place] [address] documented as of this encounter Visit Diagnoses Not on filedocumented in this encounter Additional Health Concerns Assessment Noted Time PHQ-9 Depression Total Score: 13 024 4:53 PM EDT documented as of this encounter Care Teams Etl Analyst Relationship Specialty Start Date End Date Shereen Latham MD 230 [place] [address] PCP - General Family Medicine 11/02/18 Nupur Bullock PharmD 230 [place] [address] Pharmacist Internal Medicine 08/09/24 05/15/25 Sury Benitez [address] [place] [address] Pulmonary Disease 09/27/24 Nirali Madrid OD [address] [place] [address] Optometry 10/27/24 Li Grande MD 575 [place] [address] Hematology and Oncology 10/27/24 Anselmo Gates MD 10 [facility] [address] [place] [address] Orthopaedic Surgery 10/27/24 Margaret Holman 11 [facility] 3rd [place] [address] Cardiology 10/27/24 Herberth Stokes MD 11 [facility] 3rd [place] [address] Gastroenterology 10/27/24 Hilton Palacios MD [address] [facility], [address] [place] [address] Neurology 02/06/25 Aaron Pringle MD [address] [place] [address] 3rd [place] [address] General Surgery 03/07/25 Lori Batista Registered Nurse 06/15/25 06/15/25 Neelima Raygoza 06/15/25 06/16/25 Ronda Rodríguez [address] [place] [address] 215 [place] [address] Obstetrics and Gynecology 08/02/25 Neelima Raygoza 08/14/25 08/23/25 Pily Delaney Log SawyerPull Worker 07/22/24 Elie BRASHER [facility] Psychology 12/29/24 documented as of this encounter
--- OUTSIDE RECORDS SUMMARY | 2025-08-25 16:57 | XMS_ITS | Encounter Summary ---
Author Organization [employer] Address 75 [facility] 7 [place] [address] Care Team Providers Care Multiple Slide Operator Name Role Phone Shereen Latham MD Primary Care Provider [phone] Nupur Bullock PharmD Unavailable [phone] Sury Benitez Unavailable [phone] Julius, Nirali OD Unavailable Li Grande MD Unavailable [phone] Anselmo Gates MD Unavailable Margaret Holman Unavailable Herberth Stokes MD Unavailable [phone] Hilton Palacios MD Unavailable Aaron Pringle MD Unavailable [phone] Lori Batista Unavailable [phone] Neelima Raygoza Unavailable Ronda Rodríguez Unavailable [phone] Neelima Raygoza Unavailable Encounter Details Date Type Department Care Team (Late st Contact Info) Description 10/11/2024 Telephone [facility] MEDICINE 230 [place], [place] [id number] Shereen Latham MD 230 [place] [address] Social History Tobacco Use Types Packs/Day Years [...] the past 12 months, has t he [employer], gas, oil or water [employer] threatened to shut off services in your [...] Visit [facility] MEDICINE 230 [place] [address] Shereen Latham MD 230 [place] [address] documented as of this encounter Visit Diagnoses Not on filedocumented in this encounter Additional Health Concerns Assessment Noted Time PHQ-9 Depression Total Score: 13 024 4:53 PM EDT documented as of this encounter Care Teams Multiple Slide Operator Relationship Specialty Start Date End Date Shereen Latham MD 230 [place] [address] PCP - General Family Medicine 11/02/18 Nupur Bullock PharmD 230 [place] [address] Pharmacist Internal Medicine 08/09/24 05/15/25 Sury Benitez 10 [facility] [address] [facility] 103 [place] [address] Pulmonary Disease 09/27/24 Nirali Madrid OD 267 [place] [address] Optometry 10/27/24 Li Grande MD 575 [place] [address] Hematology and Oncology 10/27/24 Anselmo Gates MD [address] [facility] [address] [place] [address] Orthopaedic Surgery 10/27/24 Margaret Holman [address] [facility] [address] [place] [address] Cardiology 10/27/24 Herberth Stokes MD [address] [place] [address] Drive 3rd [place] [address] Gastroenterology 10/27/24 Hilton Palacios MD [address] [place] [address], [address] [place] [address] Neurology 02/06/25 Aaron Pringle MD [address] [place] [address] 3rd [place] [address] General Surgery 03/07/25 Lori Batista Registered Nurse 06/15/25 06/15/25 Neelima Raygoza 06/15/25 06/16/25 Ronda Rodríguez [address] [place] [address] 215 [place] [address] Obstetrics and Gynecology 08/02/25 Neelima Raygoza 08/14/25 08/23/25 Pily Delaney Liquid Fertilizer ServicerHot Dog Vender 07/22/24 Elie BRASHER [facility] Psychology 12/29/24 documented as of this encounter
--- OUTSIDE RECORDS SUMMARY | 2025-08-25 16:57 | XMS_ITS | Encounter Summary ---
Author Organization [employer] Address 75 [facility] 7 [place] [address] Care Team Providers Care Scaler Name Role Phone Shereen Latham MD Primary Care Provider [phone] Nupur Bullock PharmD Unavailable Sury Benitez Unavailable [phone] JuliusLester castellanosn OD Unavailable Li Grande MD Unavailable [phone] Anselmo Gates MD Unavailable Margaret Holman Unavailable Herberth Stokes MD Unavailable [phone] Hilton Palacios MD Unavailable Aaron Pringle MD Unavailable [phone] Lori Batista Unavailable [phone] Neelima Raygoza Unavailable Ronda Rodríguez Unavailable Neelima Raygoza Unavailable Encounter Details Date Type Department Care Team (Late st Contact Info) Description 07/27/2023 Orders Only [facility] MEDICINE 230 [place], [place] [phone] Shereen Latham MD 230 [place] [address] Hypomagnesemia Social History Tobacco Use Types Packs/Day [...] Description 09/13/2025 3:15 PM EST Office Visit [facility] MEDICINE [address] [place] [address] Shereen Latham MD [address] [place] [address] documented as of this encounter Visit Diagnoses Diagnosis Hypomagnesemia Disorders of magnesium metabolism documented in this encounter Additional Health Concerns Assessment Noted Time PHQ-9 Depression Total Score: 10 023 10:27 AM EDT documented as of this encounter Care Teams Scaler Relationship Specialty Start Date End Date Shereen Latham MD [address] [place] [address] PCP - General Family Medicine 11/02/18 Nupur Bullock PharmD [address] [place] [address] Pharmacist Internal Medicine 08/09/24 05/15/25 Sury Benitez [address] [place] [address] [place] [address] [place] [address] Pulmonary Disease 09/27/24 Nirali Madrid OD [address] [place] [address] Optometry 10/27/24 Li Grande MD [address] [place] [address] Hematology and Oncology 10/27/24 Anselmo Gates MD 10 [facility] [address] [place] [address] Orthopaedic Surgery 10/27/24 Margaret Holman 11 [facility] 3rd [place] [address] Cardiology 10/27/24 Herberth Stokes MD 11 [facility] 3rd [place] [address] Gastroenterology 10/27/24 Hilton Palacios MD 15 [facility], [address] [place] [address] Neurology 02/06/25 Aaron Pringle MD 11 [facility] 3rd [place] [address] General Surgery 03/07/25 Lori Batista Registered Nurse 06/15/25 06/15/25 Neelima Raygoza 06/15/25 06/16/25 Ronda Rdoríguez [address] [place] [address] [address] [place] [address] Obstetrics and Gynecology 08/02/25 Neelima Raygoza 08/14/25 08/23/25 Pily Delaney Fur WeigherWater Aerobics Instructor 07/22/24 Elie BRASHER [facility] Psychology 12/29/24 documented as of this encounter
--- OUTSIDE RECORDS SUMMARY | 2025-08-25 16:57 | XMS_ITS | Encounter Summary ---
Author Organization [employer] Address 75 [facility] 7t [place] [address] Care Team Providers Care Senior Backup Administrator Name Role Phone [place], Shereen NOLASCO Primary Care Provider [phone]- [phone] Nupur Bullock PharmD Unavailable [phone] Sury Benitez Unavailable [phone] Julius Nirali OD Unavailable Li Grande MD Unavailable [phone] Anselmo Gates MD Unavailable Margaret Holman Unavailable Herberth Stokes MD Unavailable [phone] Hilton Palacios MD Unavailable [phone] Aaron Pringle MD Unavailable [phone] Lori Batista Unavailable [phone] Neelima Raygoza Unavailable Ronda Rodríguez Unavailable [phone] Neelima Raygoza Unavailable Encounter Details Date Type [...] Description 09/13/2025 3:15 PM EST Office Visit [facility] MEDICINE 230 [place] [address] Shereen Latham MD 230 [place] [address] documented as of this encounter Visit Diagnoses Not on filedocumented in this encounter Care Teams Senior Backup Administrator Relationship Specialty Start Date End Date Shereen Latham MD [address] [place] [address] PCP - General Family Medicine 11/02/18 Nupur Bullock, CharleneD [address] [place] [address] Pharmacist Internal Medicine 08/09/24 05/15/25 Sury Benitez [address] [place] [address] Dr [facility] 103 [place] [address] Pulmonary Disease 09/27/24 Nirali Madrid OD [address] [place] [address] Optometry 10/27/24 Li Grande MD 575 [place] [address] Hematology and Oncology 10/27/24 Anselmo Gates MD [address] [facility] [address] [place] [address] Orthopaedic Surgery 10/27/24 Margaret Holman [address] [facility] [address] [place] [address] Cardiology 10/27/24 Herberth Stokes MD [address] [facility] [address] 3rd [place] [address] Gastroenterology 10/27/24 Hilton Palacios MD [address] [place] [address], [address] [place] [address] Neurology 02/06/25 Aaron Pringle MD [address] [facility] [address] [place] [address] General Surgery 03/07/25 Lori Batista Registered Nurse 06/15/25 06/15/25 Neelima Raygoza 06/15/25 06/16/25 Ronda Rodríguez [address] [place] [address] 215 [place] [address] Obstetrics and Gynecology 08/02/25 Neelima Raygoza 08/14/25 08/23/25 Pily Delaney PsychometricianMachine Tack Puller 07/22/24 Elie BRASHER [facility] Psychology 12/29/24 documented as of this encounter
--- OUTSIDE RECORDS SUMMARY | 2025-08-25 16:57 | XMS_ITS | Encounter Summary ---
Author Organization [employer] Address [address] [place] [address] 7 [place] [address] Care Team Providers Care Machine Cloth Measurer Name Role Phone Shereen Latham MD Primary Care Provider [phone] Nupur Bullock PharmD Unavailable Sury Benitez Unavailable [phone] JuliusLester castellanosn OD Unavailable Li Grande MD Unavailable [phone] Anselmo Gates MD Unavailable Margaret Holman Unavailable Herberth Stokes MD Unavailable [phone] Hilton Palacios MD Unavailable Aaron Pringle MD Unavailable [phone] Lori Batista Unavailable [phone] Neelima Raygoza Unavailable Ronda Rodríguez Unavailable [phone] Neelima Raygoza Unavailable Reason for Visit * Reason Comments Med Refill Encounter Details Date Type Department Care Team (Late st Contact Info) Description 12/02/[address] [facility] MEDICINE 230 [place] [address] Shereen Latham MD [address] [place] [address] Wheeze (Primary Dx); Pain Social History Tobacco [...] Description 09/13/2025 3:15 PM EST Office Visit [facility] MEDICINE [address] [place] [address] Shereen Latham MD [address] [place] [address] documented as of this encounter Visit Diagnoses Diagnosis Wheeze- Primary Wheezing Pain Generalized pain documented in this encounter Care Teams Machine Cloth Measurer Relationship Specialty Start Date End Date Shereen Latham MD [address] [place] [address] PCP - General Family Medicine 11/02/18 Nupur Bullock PharmD [address] [place] [address] Pharmacist Internal Medicine 08/09/24 05/15/25 Sury Benitez [address] [place] [address] Pulmonary Disease 09/27/24 Nirali Madrid OD [address] [place] [address] Optometry 10/27/24 Li Grande MD [address] [place] [address] Hematology and Oncology 10/27/24 Anselmo Gates MD [address] [place] [address] Orthopaedic Surgery 10/27/24 Margaret Holman [address] 3rd [place] [address] Cardiology 10/27/24 Herberth Stokes MD [address] 3rd [place] [address] Gastroenterology 10/27/24 Hilton Palacios MD 15 [facility], [address] [place] [address] Neurology 02/06/25 Aaron Pringle MD [address]rd [place] [address] General Surgery 03/07/25 Lori Batista Registered Nurse 06/15/25 06/15/25 Neelima Raygoza 06/15/25 06/16/25 Ronda Rodríguez [address] [place] [address] [address] [place] [address] Obstetrics and Gynecology 08/02/25 Neelima Raygoza 08/14/25 08/23/25 Pily Delaney Scientific DirectorCompliance Manager 07/22/24 Elie Vicky [facility] 12/29/24 documented as of this encounter
--- OUTSIDE RECORDS SUMMARY | 2025-08-25 16:57 | XMS_ITS | Encounter Summary ---
Author Organization [employer] Address 75 [facility] 7 [place] [address] Care Team Providers Care Lean Specialist Name Role Phone Shereen Latham MD Primary Care Provider [phone] Nupur Bullock PharmD Unavailable [phone] Sury Benitez Unavailable [phone] JuliusLestern OD Unavailable Li Grande MD Unavailable [phone] Anselmo Gates MD Unavailable Margaret Holman Unavailable Herberth Stokes MD Unavailable [phone] Hilton Palacios MD Unavailable Aaron Pringle MD Unavailable [phone] Lori Batista Unavailable [phone] Neelima Raygoza Unavailable Ronda Rodríguez Unavailable Neelima Raygoza Unavailable Encounter Details Date Type Department Care Team (Late st Contact Info) Description 11/16/2022 Abstract [facility] MEDICINE 230 [place], [place] [phone] Shereen Latham MD 230 [place] [address] Social History Tobacco Use Types Packs/Day Years [...] Loomis's note from [facility] DEPUTY PROGRAM MANAGER, pt was due for repeat colposcopy in [...] 11/16/2022 10:55 AM EST Associated Problem(s): Hyperaldosteronism (Resolved 07/29/2023) Seen by [facility] Endocrinology 04/03/2022. Initially seen 12/2021 for hyperaldosteronism. Labs [facility] 10/2021 aldosterone 8, plasma renin 0.11, aldosterone/renin 72.7. She was likely on spironolactone and lisinopril at time of labs. Advise no spironolactone for 6 weeks and recheck renin aldosterone levels with renal panel and magnesium in teacher tutor. 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 [...] had ultrasound sound for abdominal pain at [facility]. Ultrasound showed diffusely echogenic parenchyma with focal sparing around the gallbladder. No suspicious lesions. Impression showed liver likely representing hepatic steatosis and non- obstructing right kidney stone. documented in this encounter Plan of Treatment Upcoming Encounters Date Type Department Care Team (Late st Contact Info) Description 09/13/2025 3:15 PM EST Office Visit [facility] MEDICINE 230 [place] [address] Shereen Latham MD 230 [place] [address] documented as of this encounter Visit Diagnoses Not on filedocumented in this encounter Care Teams Lean Specialist Relationship Specialty Start Date End Date Shereen Latham MD 230 [place] [address] PCP - General Family Medicine 11/02/18 Nupur Bullock, PharmD 230 [place] [address] Pharmacist Internal Medicine 08/09/24 05/15/25 Sury Benitez [address] [place] [address] Dr [facility] 103 [place] [address] Pulmonary Disease 09/27/24 Nirali Madrid OD [address] [place] [address] Optometry 10/27/24 Li Grande MD [address] [place] [address] Hematology and Oncology 10/27/24 Anselmo Gates MD [address] [facility] [address] [place] [address] Orthopaedic Surgery 10/27/24 Margaret Holman [address] 3rd [place] [address] Cardiology 10/27/24 Herberth Stokes MD [address] 3rd [place] [address] Gastroenterology 10/27/24 Hilton Palacios MD [address] [place] [address], [address] [place] [address] Neurology 02/06/25 Aaron Pringle MD [address] [facility] [address] 3rd [place] [address] General Surgery 03/07/25 Lori Batista Registered Nurse 06/15/25 06/15/25 Neelima Raygoza 06/15/25 06/16/25 Ronda Rodríguez [address] [place] [address] 215 [place] [address] Obstetrics and Gynecology 08/02/25 Neelima Raygoza 08/14/25 08/23/25 Pily Delaney Voyage Management System OperatorCampus Security Officer 07/22/24 Elie BRASHER [facility] Psychology 12/29/24 documented as of this encounter
--- OUTSIDE RECORDS SUMMARY | 2025-08-25 16:57 | XMS_ITS | Encounter Summary ---
Author Organization [employer] Address 75 [facility] 7t [place] [address] Care Team Providers Care Cold Food Packer Name Role Phone [place], Shereen NOLASCO Primary Care Provider [phone] Nupur Bullock PharmD Unavailable [phone] Sury Benitez Unavailable [phone] Julius Nirali OD Unavailable Li Grande MD Unavailable [phone] Anselmo Gates MD Unavailable Margaret Holman Unavailable Herberth Stokes MD Unavailable [phone] Hilton Palacios MD Unavailable Aaron Pringle MD Unavailable [phone] Lori Batista Unavailable [phone] Neelima Raygoza Unavailable Ronda Rodríguez Unavailable [phone] Neelima Raygoza Unavailable Encounter Details Date Type Department Care Team (Latest Contact Info) Description 08/16/2021 Abstract [facility] CONVERSIONS Dental, Provider, DDS Social [...] Description 09/13/2025 3:15 PM EST Office Visit [facility] MEDICINE 230 [place] [address] Shereen Latham MD 230 [place] [address] documented as of this encounter Visit Diagnoses Not on filedocumented in this encounter Care Teams Cold Food Packer Relationship Specialty Start Date End Date Shereen Latham MD [address] [place] [address] PCP - General Family Medicine 11/02/18 Nupur Bullock, CharleneD [address] [place] [address] Pharmacist Internal Medicine 08/09/24 05/15/25 Sury Benitez [address] [place] [address] Dr [facility] 103 [place] [address] Pulmonary Disease 09/27/24 Nirali Madrid OD [address] [place] [address] Optometry 10/27/24 Li Grande MD [address] [place] [address] Hematology and Oncology 10/27/24 Anselmo Gates MD [address] [facility] [address] [place] [address] Orthopaedic Surgery 10/27/24 Margaret Holman [address] 3rd Floor [place] [address] Cardiology 10/27/24 Herberth Stokes MD [address] [facility] [address] 3rd [place] [address] Gastroenterology 10/27/24 Hilton Palacios MD [address] [place] [address], [address] [place] [address] Neurology 02/06/25 Aaron Pringle MD [address] [facility] [address]rd [place] [address] General Surgery 03/07/25 Lori Batista Registered Nurse 06/15/25 06/15/25 Neelima Raygoza 06/15/25 06/16/25 Ronda Rodríguez [address] [place] [address] 215 [place] [address] Obstetrics and Gynecology 08/02/25 Neelima Raygoza 08/14/25 08/23/25 Pily Delaney Transverse Abdominal Muscle NursePsychology Instructor 07/22/24 Elie BRASHER [facility] Psychology 12/29/24 documented as of this encounter
--- OUTSIDE RECORDS SUMMARY | 2025-08-25 16:57 | XMS_ITS | Encounter Summary ---
Author Organization [employer] Address [address] [place] [address] 7 [place] [address] Care Team Providers Care Cook Railroad Name Role Phone [place], Shereen NOLASCO Primary Care Provider [phone] Sury Benitez Unavailable [phone] Nirali Madrid OD Unavailable Li Grande MD Unavailable [phone] Anselmo Gates MD Unavailable Margaret Holman Unavailable Herberth Stokes MD Unavailable [phone] Hilton Palacios MD Unavailable Aaron Pringle MD Unavailable [phone] Neelima Raygoza Unavailable Ronda Rodríguez Unavailable Neelima Raygoza Unavailable Reason for Visit * Reason Onset Date Comments active requested appt 06/16/2025 Encounter Details Date Type Department Care Team (Late st Contact Info) Description 06/16/2025 Telephone [facility] 230 [place] [address] Isa De La Rosa DDS 230 [place] [address] active requested appt Social History Tobacco Use [...] the past 12 months, has t he [employer], gas, oil or water company threatened to [...] Description 09/13/2025 3:15 PM EST Office Visit [facility] MEDICINE 230 [place] [address] Shereen L[place] MD 230 [place] [address] documented as of this encounter Visit Diagnoses Not on filedocumented in this encounter Additional Health Concerns Assessment Noted Time PHQ-9 Depression Total Score: 21 025 11:03 AM EDT documented as of this encounter Care Teams Cook Railroad Relationship Specialty Start Date End Date Shereen L[place] MD 230 [place] [address] PCP - General Family Medicine 11/02/18 Sury Benitez [address] [place] [address] 103 [place] [address] Pulmonary Disease 09/27/24 Nirali Madrid OD [address] [place] [address] Optometry 10/27/24 Li Grande MD 575 [place] [address] Hematology and Oncology 10/27/24 Anselmo Gates MD 10 [facility] [address] [place] [address] Orthopaedic Surgery 10/27/24 Margaret Holman [address] 3rd [place] [address] Cardiology 10/27/24 Herberth Stokes MD [address] 3rd [place] [address] Gastroenterology 10/27/24 Hilton Palacios MD [address] [place] [address], [address] [place] [address] Neurology 02/06/25 Aaron Pringle MD [address] [facility] [address] 3rd [facility] [place] [address] General Surgery 03/07/25 Neelima Raygoza 06/15/25 06/16/25 Ronda Rodríguez [address] [place] [address] [address] [place] [address] Obstetrics and Gynecology 08/02/25 Neelima Raygoza 08/14/25 08/23/25 iPly Delaney Electronic Engineering DraftspersonTool Shaper Setup Operator 07/22/24 Elie BRASHER [facility] Psychology 12/29/24 documented as of this encounter
--- OUTSIDE RECORDS SUMMARY | 2025-08-25 16:57 | XMS_ITS | Encounter Summary ---
Author Organization [employer] Address [address] [place] [address] 7 [place] [address] Care Team Providers Care Manager Shell Name Role Phone Shereen Latham MD Primary Care Provider [phone] Nupur Bullock PharmD Unavailable Sury Benitez Unavailable [phone] Julius, Nirali OD Unavailable Li Grande MD Unavailable [phone] Anselmo Gates MD Unavailable Margaret oHlman Unavailable Herberth Stokes MD Unavailable [phone] Hilton Palacios MD Unavailable Aaron Pringle MD Unavailable [phone] Lori Batista Unavailable [phone] Neelima Raygoza Unavailable Ronda Rodríguez Unavailable [phone] Neelima Raygoza Unavailable Reason for Visit * Reason Onset Date Comments ER Follow-up 12/07/2024 Encounter Details Date Type Department Care Team (Late st Contact Info) Description 12/07/2024 Telephone [facility] [address] [place] [address] Shereen Latham MD [address] [place] [address] ER Follow-up Social History Tobacco Use Types [...] TC placed to pt to f/u on [facility] ED visit on 12/06/2024 for right lower [...] ED visit on : Date: 12/06/24 Hospital: [facility] Seen for: Flu Patient advised will forward to team nurse for follow up documented in this encounter Plan of Treatment Upcoming Encounters Date Type Department Care Team (Late st Contact Info) Description 09/13/2025 3:15 PM EST Office Visit [facility] [address] [place] [address] Shereen Latham MD [address] [place] [address] documented as of this encounter Visit Diagnoses Not on filedocumented in this encounter Additional Health Concerns Assessment Noted Time PHQ-9 Depression Total Score: 13 024 4:53 PM EDT documented as of this encounter Care Teams Manager Shell Relationship Specialty Start Date End Date Shereen Latham MD [address] [place] [address] PCP - General Family Medicine 11/02/18 Nupur Bullock, Pushpa [address] [place] [address] Pharmacist Internal Medicine 08/09/24 05/15/25 Sury Benitez 10 [facility] [address] [place] [address] Pulmonary Disease 09/27/24 Nirali Madrid OD [address] [place] [address] Optometry 10/27/24 Li Grande MD [address] [place] [address] Hematology and Oncology 10/27/24 Anselmo Gates MD 10 [facility] 203 [place] [address] Orthopaedic Surgery 10/27/24 Margaret Holman 11 [facility] 3rd [place] [address] Cardiology 10/27/24 Herberth Stokes MD 11 [facility] [address]rd [place] [address] Gastroenterology 10/27/24 Hilton Palacios MD 15 [facility], [address] [place] [address] Neurology 02/06/25 Aaron Pringle MD 11 [facility] [address]rd [place] [address] General Surgery 03/07/25 Lori Batista Registered Nurse 06/15/25 06/15/25 Neelima Raygoza 06/15/25 06/16/25 Ronda Rodríguez [address] [place] [address] Obstetrics and Gynecology 08/02/25 Neelima Raygoza 08/14/25 08/23/25 Pily Delaney Bench Press OperatorBusiness Excellence Leader 07/22/24 Elie BRASHER [facility] Psychology 12/29/24 documented as of this encounter
--- OUTSIDE RECORDS SUMMARY | 2025-08-25 16:57 | XMS_ITS | Encounter Summary ---
Author Organization [employer] Address 75 [facility] 7t [place] [address] Care Team Providers Care Medical Interpreter Name Role Phone [place], Shereen NOLASCO Primary Care Provider [phone] Sury Benitez Unavailable [phone] Nirali Madrid OD Unavailable [phone] Li Grande MD Unavailable [phone] Anselmo Gates MD Unavailable Margaret Holman Unavailable Herberth Stokes MD Unavailable [phone] Hilton Palacios MD Unavailable Aaron Pringle MD Unavailable [phone] Ronda Rodríguez Unavailable Encounter Details Date Type Department Care Team (Late st Contact Info) Description 08/25/2025 Orders Only GENERIC EXTERNAL DATA DEPARTMENT [...] Description 09/13/2025 3:15 PM EST Office Visit [facility] 230 [place], [place] [phone] Shereen Latham MD 230 [place] [address] documented as of this encounter Procedures Procedure Name Priority Date/Time Associated Diagnosis Comments CT HEAD WO CONTRAST Routine 08/25/2025 3 :28 PM EDT HIGH SENSITIVITY TROPONIN I Routine 08/25/2025 12:45 PM EDT ETHANOL Routine 08/25/2025 12:45 PM EDT TSH W/REFLEX TO FT4 Routine 08/25/2025 1 2:45 PM EDT CBC WITH AUTO DIFFERENTIAL Routine 08/25/2025 12:45 PM EDT MAGNESIUM Routine 08/25/2025 12:45 PM EDT HEPATIC FUNCTION PANEL Routine 08/25/2025 12:45 PM EDT BASIC METABOLIC PANEL Routine 08/25/2025 12:45 PM EDT documented in this encounter Results * CT Head w/o Contrast (08/25/2025 3:28 PM EDT) Anatomical Region Laterality Modality Head, Neck Computed Tomogra phy 08/25/2025 3:28 PM EDT Narrative 08/25/2025 3:53 PM EDT [place] [address] [address] Scan Report Signed Patient: Azra Cast MR#: [id number] : 1975 Acct:[id number] Age/Sex: 49 / F ADM Date: 08/25/25 Loc: HO.ED Attending Dr: Ordering Physician: Leighann Ordonez DO Date of Service: 08/25/25 Procedure(s): CT head/brain wo IV con Accession Number(s): [id number] cc: Shereen Latham MD; Leighann Ordonez DO Report Number: [id number]: Total DLP = 712.00 mGy-cm Reason for [...] 08/25/25 1550 DD/ 1528 TD/TT: 08/25/25 1538 [employer] Merchandiser: CAROLINE Procedure Note Donotuseinterpreter, Image - 08/25/[address] [place] [address] [address] Scan Report Signed Patient: Maged Cast#: [id number] : 1975Acct:[id number] Age/Sex: 49 / FADM Date: 08/25/25 Loc: HO.ED Attending Dr: Ordering Physician: Leighann Ordonez DO Date of Service: 08/25/25 Procedure(s): CT head/brain wo IV con Accession Number(s): [id number] cc: Shereen Latham MD; Leighann Ordonez DO Report Number: [id number]: Total DLP = 712.00 mGy-cm Reason for [...] 08/25/25 1550 DD/ 1528 TD/TT: 08/25/25 1538 [employer] Merchandiser: CAROLINE [facility] External Provider IMG CT PROCEDURES Final Result * TSH with Reflex to Free T4 (08/25/2025 12:45 PM EDT) TSH reflex Free T4 0.94 0.32 - 4.0 uIU/mL [facility] 08/25/2025 12:4 5 PM EDT 08/25/2025 12:52 PM EDT Generic External Data Provider LAB BLOOD ORDERAB LES Final Result [facility] [address] [place] [address] [phone] * Ethanol (08/25/2025 12:45 PM EDT) Pathologist [facility] ETHANOL (MG/DL) IN SER/PLAS 11 mg/dL [facility] Comment:Serum/plasma ethanol results are to be used formedical/treatment purposes only. 08/25/2025 12:4 5 PM EDT 08/25/2025 12:52 PM EDT Generic External Data Provider LAB BLOOD ORDERAB LES Final Result Performing Organization Address [facility] de Phone Number [facility] [address] [place] [phone] * (ABNORMAL) Magnesium (08/25/2025 12:45 PM EDT) [facility] Magnesium 1.4(LL) 1.6 - 2.6 mg/dL [facility] Comment:Critical value for M AGS: Results called to and read backby: DANIE Person calling: DALLIN Date: 08/25/25 Time:1320 08/25/2025 12:4 5 PM EDT 08/25/2025 12:52 PM EDT Generic External Data Provider LAB BLOOD ORDERAB LES Final Result Performing Organization Address [facility] de Phone Number [facility] [address] [place] [address] [phone] * (ABNORMAL) Basic Metabolic Panel (08/25/2025 12:45 PM EDT) [facility] Sodium 141 135 - 145 mmol/L [facility] Potassium 3.9 3.3 - 5.1 mmol/L [facility] Chloride 107 96 - 108 mmol/L [facility] Carbon Dioxide 25 22 - 29 mmol/L [facility] Anion Gap 13 12 - 20 [facility] Urea Nitrogen (BUN) 19(H) 9 - 16 mg/dL [facility] Creatinine, Serum 0.89 0.5 - 1.4 mg/dL [facility] Creatinine Clr Calc Pharmacy 85.7 [facility] Comment:Provided height and weight: 170.18 cm,89.176 kg.eGFR (calculated from the MDRD study equation) and eCrCl(calculated from the Cockcroft-Gault equation) are based ondifferent parameters and may not yield comparable results.If eCrCl result is absurd, please check patient'sheight/weight. Estimated Glomerular Filt Rate >60 [facility] Comment:Chronic Kidney Disea se: Estimated GFR < 60 mL/min/1.87l7Bbazal Kidney Disease: Estimated GFR < 15 mL/min/1.73m2 Glucose 154(H) 60 - 115 mg/dL [facility] Calcium 9.2 8.4 - 10.2 mg/dL [facility] 08/25/2025 12:4 5 PM EDT 08/25/2025 12:52 PM EDT us Generic External Data Provider LAB BLOOD ORDERAB LES Final Result [facility] [address] [place] [phone] * (ABNORMAL) Hepatic Function Panel (08/25/2025 12:45 PM EDT) Bilirubin, Total 0.3 0.0 - 1.0 mg/dL [facility] Bilirubin, Direct 0.1 0.0 - 0.5 mg/dL [facility] Aspartate Amino Transferase 21 5 - 31 U/L [facility] Alanine Aminotransferase 18 0 - 31 U/L [facility] Total Protein 7.1 6.5 - 8.0 g/dL [facility] Albumin Level 4.3 3.5 - 5.0 g/dL [facility] Alkaline Phosphatase 129(H) 39 - 117 U/L [facility] 08/25/2025 12:4 5 PM EDT 08/25/2025 12:52 PM EDT Generic External Data Provider LAB BLOOD ORDERAB LES Final Result Performing Organization Address [facility] de Phone Number [facility] [address] [place] [phone] * High Sensitivity Troponin I (08/25/2025 12:45 PM EDT) [facility] TROPONIN I HIGH SENSITIVITY 12.2 <3.5 - 17.0 ng/L [facility] Comment:The Henriquez high sens itivity Troponin-I results should beused in conjunction with other diagnostic information suchas ECG, clinical observations and information, and patientsymptoms to aid in the diagnosis of [place]. 08/25/2025 12:4 5 PM EDT 08/25/2025 12:52 PM EDT Generic External Data Provider LAB BLOOD ORDERAB LES Final Result Performing Organization Address [facility] de Phone Number [facility] [address] [place] [phone] * (ABNORMAL) CBC auto differential (08/25/2025 12:45 PM EDT) [facility] White Blood Count 9.9 4.8 - 10.8 X10*3/uL [facility] Red Blood Count 4.12(L) 4.20 - 5.50 X10*6/uL [facility] Hemoglobin 11.6(L) 12.0 - 16.0 g/dl [facility] Hematocrit 35.5(L) 37.0 - 47.0 % [facility] Mean Corpuscular Volume 86.2 80.0 - 98.0 fL [facility] Mean Corpuscular Hemoglobin 28.2 27.0 - 33.0 pg [facility] Mean Corpuscular HGB Conc 32.7 31.0 - 35.0 g/dl [facility] Red Cell Distribution Width 14.3 11.0 - 16.0 % [facility] Platelet Count 304 160 - 400 X10*3/uL [facility] Mean Platelet Volume 9.9 9.4 - 12.3 fL [facility] Neutrophils Percent Auto 64.4 45 - 73 % [facility] Imm Gran Pct Auto 0.3 0.0 - 0.4 % [facility] Lymphocytes Percent Auto 26.9 20 - 40 % [facility] Monocytes Percent Auto 5.8 2 - 11 % [facility] Eosinophils Percent Auto 2.0 0 - 4 % [facility] Basophils Percent Auto 0.6 0 - 2 % [facility] NRBC Pct Auto 0.0 0.0 - 0.2 /100WBC [facility] Neutrophils Absolute Auto 6.4 2.0 - 8.3 x10*3/uL [facility] Imm Gran Abs Auto 0.03 0.00 - 0.03 X10*3/uL [facility] Lymphocytes Absolute Auto 2.7 1.2 - 4.9 X10*3/uL [facility] Monocytes Absolute Auto 0.6 0.1 - 1.2 X10*3/uL [facility] Eosinophils Absolute Auto 0.2 0.0 - 0.4 X10*3/uL [facility] Basophils Absolute Auto 0.1 0.0 - 0.2 X10*3/uL [facility] NRBC Abs Auto 0.000 0.0 - 0.012 X10*3/uL [facility] 08/25/2025 12:4 5 PM EDT 08/25/2025 12:52 PM EDT us Generic External Data Provider LAB BLOOD ORDERAB LES Final Result [facility] [address] [place] [address] [phone] documented in this encounter Visit Diagnoses Not on filedocumented in this encounter Additional Health Concerns Assessment Noted Time PHQ-9 Depression Total Score: 21 05/24/2 025 11:03 AM EDT documented as of this encounter Care Teams Medical Interpreter Relationship Specialty Start Date End Date Shereen Latham MD [address] [place] [address] PCP - General Family Medicine 11/02/18 Sury Benitez 10 [facility] [address] [place] [address] Pulmonary Disease 09/27/24 Nirali Madrid OD [address] [place] [address] Optometry 10/27/24 Li Grande MD [address] [place] [address] Hematology and Oncology 10/27/24 Anselmo Gates MD [address] [place] [address] Orthopaedic Surgery 10/27/24 Margaret Holman [address] [place] [address] Cardiology 10/27/24 Herberth Stokes MD 11 [facility] [address] [place] [address] Gastroenterology 10/27/24 Hilton Palacios MD 15 [facility], [address] [place] [address] Neurology 02/06/25 Aaron Pringle MD [address] [facility] [address] [place] [address] General Surgery 03/07/25 Ronda Rodríguez 299 [facility] [address] [place] [address] Obstetrics and Gynecology 08/02/25 Pily Delaney Cage OperatorTechnical Advisor 07/22/24 Elie BRASHER [facility] Psychology 12/29/24 documented as of this encounter
--- OUTSIDE RECORDS SUMMARY | 2025-08-25 16:57 | XMS_ITS | Encounter Summary ---
Author Organization [employer] Address 75 [facility] 7t [place] [address] Care Team Providers Care Black Topper Name Role Phone [place], Shereen NOLASCO Primary Care Provider Nupur Bullock PharmD Unavailable [phone] Sruy Benitez Unavailable [phone] JuliusLestern OD Unavailable Li Grande MD Unavailable [phone] Anselmo Gates MD Unavailable Margaret Holman Unavailable Herberth Stokes MD Unavailable [phone] Hilton Palacios MD Unavailable Aaron Pringle MD Unavailable [phone] Lori Batista Unavailable [phone] Neelima Raygoza Unavailable Ronda Rodríguez Unavailable Neelima Raygoza Unavailable Reason for Referral * Consultation (Routine) - Closed Specialty Diagnoses / Procedures Referred By Walter t Referred To Contact Obstetrics and Gynecology Diagnoses Women's annual routine gynecological examination Stacey Khan MD [address] [place] [address] Phone: tel: fax: [facility] [address] 5[address] (Main Hospital Entrance) AGUILA Sierra Phone: tel: fax: Referral ID Status Reason Start Date Expiration Date V isits Requested Visits Authorized [id number] Closed Specialty Services Required 01/19/2025 01/19/2026 9 9 Encounter Details Date Type Department Care Team (Late st Contact Info) Description 01/19/2025 Orders Only [facility] [address] [place], [place] [phone] Stacey Khan MD [address] [place] [address] Women's annual routine gynecological examination (Primary Dx) [...] Description 09/13/2025 3:15 PM EST Office Visit [facility] [address] [place] [address] Shereen Latham MD [address] [place] [address] Scheduled Referrals Name Type Priority Associated Diagnoses [...] 4:33 PM EDT) [facility] TROPONIN I HIGH SENSITIVITY 7.8 <3.5 - 17.0 ng/L [facility] Comment:The Henriquez high sens itivity Troponin-I results should beused in conjunction with other diagnostic information suchas ECG, clinical observations and information, and patientsymptoms to aid in the diagnosis of [place]. 01/19/2025 4:33 PM EDT 01/19/2025 4:34 PM EDT Generic External Data Provider LAB BLOOD ORDERAB LES Final Result Performing Organization Address [facility] Co de Phone Number [facility] [address] [place] [phone] * B Type Natriuretic Peptide (BNP) (01/19/2025 4:33 PM EDT) [facility] B Type Natriuretic Peptide 22 <100 pg/mL [facility] 01/19/2025 4:33 PM EDT 01/19/2025 4:34 PM EDT Lettuce External Data Provider LAB BLOOD ORDERAB LES Final Result Performing Organization Address [facility] Co de Phone Number [facility] [address] [place] [phone] * D Dimer High Sensitivity (01/19/2025 4:33 PM EDT) [facility] D Dimer High Sensitivity <150 NG/ML [facility] [...] LES Final Result [facility] [address] [place] [address] [phone] documented in this encounter Visit Diagnoses Diagnosis Women's annual routine gynecological examination- Primary documented in this encounter Additional Health Concerns Assessment Noted Time PHQ-9 Depression Total Score: 22 025 10:17 AM EST documented as of this encounter Care Teams Black Topper Relationship Specialty Start Date End Date Shereen Latham MD [address] [place] [address] PCP - General Family Medicine 11/02/18 Nupur Bullock, CharleneD [address] [place] [address] Pharmacist Internal Medicine 08/09/24 05/15/25 Sury Benitez [address] [place] [address] Dr [facility] [address] [place] [address] Pulmonary Disease 09/27/24 Nirali Madrid OD [address] [place] [address] Optometry 10/27/24 Li Grande MD [address] [place] [address] Hematology and Oncology 10/27/24 Anselmo Gates MD [address] [facility] [address] [place] [address] Orthopaedic Surgery 10/27/24 Margaret Holman 11 [facility] 3rd [place] [address] Cardiology 10/27/24 Herberth Stokes MD 11 [facility] 3rd [place] [address] Gastroenterology 10/27/24 Hilton Palacios MD [address] [place] [address], [address] [place] [address] Neurology 02/06/25 Aaron Pringle MD [address] [place] [address] 3rd [place] [address] General Surgery 03/07/25 Lori Batista Registered Nurse 06/15/25 06/15/25 Neelima Raygoza 06/15/25 06/16/25 Ronda Rodríguez [address] [place] [address] [address] [place] [address] Obstetrics and Gynecology 08/02/25 Neelima Raygoza 08/14/25 08/23/25 Pily Delaney Wrapper Leaf InspectorHod Carrier 07/22/24 Elie BRASHER [facility] Psychology 12/29/24 documented as of this encounter
--- OUTSIDE RECORDS SUMMARY | 2025-08-25 16:57 | XMS_ITS | Encounter Summary ---
Author Organization [employer] Address [address] [place] [address] 7 [place] [address] Care Team Providers Care Practical Ministries Professor Name Role Phone Shereen Latham MD Primary Care Provider [phone] Nupur Bullock PharmD Unavailable Sury Benitez Unavailable [phone] JuliusNirali castellanos OD Unavailable Li Grande MD Unavailable [phone] Anselmo Gates MD Unavailable Margaret Holman Unavailable Herberth Stokes MD Unavailable [phone] Hilton Palacios MD Unavailable Aaron Pringle MD Unavailable [phone] Lori Batista Unavailable [phone] Neelima Raygoza Unavailable Ronda Rodríguez Unavailable Neelima Raygoza Unavailable Reason for Visit * Reason Comments Med Refill Encounter Details Date Type Department Care Team (Late st Contact Info) Description 01/17/2025 Refill [facility] [address] [place], [place] [phone] Shereen Latham MD [address] [place] [address] Pain Social History Tobacco Use Types Packs/Day [...] t he electric, gas, oil or water [employer] threatened to shut off services in your [...] Description 09/13/2025 3:15 PM EST Office Visit [facility]INE [address] [place] [address] Shereen Latham MD [address] [place] [address] documented as of this encounter Visit Diagnoses Diagnosis Pain Generalized pain documented in this encounter Additional Health Concerns Assessment Noted Time PHQ-9 Depression Total Score: 025 10:17 AM EST documented as of this encounter Care Teams Practical Ministries Professor Relationship Specialty Start Date End Date Shereen Latham MD [address] [place] [address] PCP - General Family Medicine 11/02/18 Nupur Bullock, CharleneD [address] [place] [address] Pharmacist Internal Medicine 08/09/24 05/15/25 Sury Benitez [address] [place] [address] [facility] [address] [place] [address] Pulmonary Disease 09/27/24 Nirali Madrid OD [address] [place] [address] Optometry 10/27/24 Li Grande MD [address] [place] [address] Hematology and Oncology 10/27/24 Anselmo Gates MD [address] [facility] [address] [place] [address] Orthopaedic Surgery 10/27/24 Margaret Holman [address] 3rd [place] [address] Cardiology 10/27/24 Herberth Stokes MD [address] 3rd [place] [address] Gastroenterology 10/27/24 Hilton Palacios MD [address] [place] [address], [address] [place] [address] Neurology 02/06/25 Aaron Pringle MD [address] [place] [address] Drive [address] [place] [address] General Surgery 03/07/25 Lori Batista Registered Nurse 06/15/25 06/15/25 Neelima Raygoza 06/15/25 06/16/25 Ronda Rodríguez [address] [place] [address] [address] [place] [address] Obstetrics and Gynecology 08/02/25 Neelima Raygoza 08/14/25 08/23/25 Pily Delaney Writer EditorNeurodiagnostic Tech 07/22/24 Elie BRASHER [facility] Psychology 12/29/24 documented as of this encounter
--- OUTSIDE RECORDS SUMMARY | 2025-08-25 16:57 | XMS_ITS | Encounter Summary ---
Author Organization [employer] Address [address] [place] [address] 7 [place] [address] Care Team Providers Care Agency Service Coordinator Name Role Phone Monroe, Shereen NOLASCO Primary Care Provider [phone] Sury Benitez Unavailable [phone] Nirali Madrid OD Unavailable Li Grande MD Unavailable [phone] Anselmo Gates MD Unavailable Margaret Holman Unavailable Herberth Stokes MD Unavailable [phone] Hilton Palacios MD Unavailable [phone] Aaron Pringle MD Unavailable [phone] Ronda Rodríguez Unavailable [phone] Neelima Raygoza Unavailable Reason for Visit * Reason Onset Date Comments rs no show appt 08/15/2025 Encounter Details Date Type Department Care Team (Late st Contact Info) Description 08/15/2025 Telephone [facility] ADULT DENTAL [address] [place], [place] [phone] Isa De La Rosa DDS [address] [place], [place] [phone] rs no show appt Social History Tobacco Use Types Packs/Day [...] Telephone Encounter - Bebe De Leon - 08/15/2025 8:49 AM EDT Patient called into rs a no show appointment. Patient has been informed there is a waiting period prior to rs a no show appointment and that office will reach out. Patient understood. DR documented in this encounter Plan of Treatment Upcoming Encounters Date Type Department Care Team (Late st Contact Info) Description 09/13/2025 3:15 PM EST Office Visit [facility] MEDICINE [address] [place] [address] Shereen Latham MD [address] [place] [address] documented as of this encounter Visit Diagnoses Not on filedocumented in this encounter Additional Health Concerns Assessment Noted Time PHQ-9 Depression Total Score: 21 025 11:03 AM EDT documented as of this encounter Care Teams Agency Service Coordinator Relationship Specialty Start Date End Date Shereen Latham MD [address] [place] [address] PCP - General Family Medicine 11/02/18 Sury Benitez [address] [place] [address] Dr [address] [place] [address] Pulmonary Disease 09/27/24 Nirali Madrid OD [address] [place] [address] Optometry 10/27/24 Li Grande MD [address] [place] [address] Hematology and Oncology 10/27/24 Anselmo Gates MD [address] [place] [address] Orthopaedic Surgery 10/27/24 Margaret Holman [address] [facility] 3rd [place] [address] Cardiology 10/27/24 Herberth Stokes MD [address]rd [place] [address] Gastroenterology 10/27/24 Hilton Palacios MD [address] [place] [address], [address] [place] [address] Neurology 02/06/25 Aaron Pringle MD [address] 3rd [place] [address] General Surgery 03/07/25 Ronda Rodríguez [address] [place] [address] [address] [place] [address] Obstetrics and Gynecology 08/02/25 Neelima Raygoza 08/14/25 08/23/25 Pily [employer] TeacherClient Professional 07/22/24 Elie BRASHER [facility] Psychology 12/29/24 documented as of this encounter
[2025-08-25 17:15] VITALS: BP 126/82; PULSE 101; RESP 16; TEMP 36.8; O2SAT 98
== END 2025-08-25 17:16 | disposition home or self-care (01) ==
PROVIDERS: Nurse Practitioner Family; Emergency Provider Emergency Medicine; PCP Family Medicine
DX: G44.209 Tension-type headache, unspecified, not intractable (principal); N18.9 Chronic kidney disease, unspecified; C50.919 Malignant neoplasm of unspecified site of unspecified female breast; Z72.0 Tobacco use; I10 Essential (primary) hypertension; Z79.899 Other long term (current) drug therapy
CPT/HCPCS: 36415; 70450; 80048; 80076; 80307; 83735; 84443; 84484; 85025; 93005; 96365; 96366; 99284; 99285; J3475

== ENCOUNTER → 2025-08-25 12:15 | Outpatient (BNV) | payer MEDICAID, SELFPAY | PROVIDERS: PCP Family Medicine; Visit Provider Internal Medicine Cardiovascular Disease | DX: R00.0 Tachycardia, unspecified (principal) | CPT/HCPCS: 93010 ==

== ENCOUNTER → 2025-08-25 15:19 | Outpatient (BNV) | payer MEDICAID, SELFPAY | PROVIDERS: Emergency Provider Emergency Medicine; PCP Family Medicine; Visit Provider Radiology Diagnostic Radiology | DX: R51.9 Headache, unspecified (principal) | CPT/HCPCS: 70450 ==

== ENCOUNTER 2025-09-04 14:47 | Outpatient (AMB) | payer MEDICAID, SELFPAY ==
[2025-09-04 15:04] VITALS: BP 128/82; PULSE 105; BMI 30.7
--- NOTE | 2025-09-04 15:04 | A.OFFVIS_ITS ---
Vital Signs 09/04/25 15:04 Height 5 ft 7 in Weight 195 lb 12.328 oz BMI 30.7 BP 128/82 Blood Pressure Location Rt brachial Position Sitting Pulse 105 H Pulse Source Pulse Oximeter Intake Visit Reasons: 6 wk f/up(rs) Music Orchestrator Required: No Allergies amoxicillin (AMOXICILLIN) Allergy (Intermediate, Verified 09/04/25 15:06) rash, rash/itching sulfamethoxazole (From BACTRIM) Allergy (Intermediate, Verified 09/04/25 15:06) RASH trimethoprim (From BACTRIM) Allergy (Intermediate, Verified 09/04/25 15:06) RASH hydrocodone (Hydrocodone) Allergy (Mild, Verified 09/04/25 15:06) ITCH ibuprofen (From Motrin) Allergy (Mild, Verified 09/04/25 15:06) UPSET STOMACH latex (Latex) Allergy (Mild, Verified 09/04/25 15:06) ITCH Medication List - Last Reconciled 09/04/25 by Margaret Holman NP-C [ACL defiance brace n/a] albuterol sulfate 90 mcg/actuation 2 puffs inhalation Q4H PRN albuterol sulfate 2.5 mg (3 mL) inhalation Q4-6H PRN allopurinol 100 mg PO BID cetirizine 10 mg PO DAILY PRN cholecalciferol (vitamin D3) (Vitamin D3) 1 cap PO DAILY diphenhydramine-zinc acetate 1-0.1 % (Benadryl Itch Stopping) 1 appl topical BID docusate sodium 100 mg PO BEDTIME fluticasone propion-salmeterol 115-21 mcg/actuation (Advair HFA) 2 puffs inhalation Q12H furosemide (Lasix) 20 mg PO DAILY hydrocortisone 2.5% (Proctosol HC) 1 appl AR BID-QID PRN lorazepam 1 mg PO DAILY PRN losartan 25 mg See Protocol PO BID magnesium oxide 400 mg PO QID methylcellulose (laxative) (Citrucel) 500 mg PO DAILY metoprolol succinate ER 50 mg PO BID multivitamin 1 tab PO DAILY omeprazole 1 cap PO DAILY@0630 thiamine HCl (vitamin B1) 1 tab PO DAILY HPI HPI 6 wk f/up(rs): Details: Azra is a 49-year-old female with past medical history of hypertension, prior alcohol use, cardiomyopathy who was not seen in our office between 10/15/2021 and 08/01/2024 following [facility] admission for decompensated heart failure. She was started on appropriate med management. Her echo at that time did show normal EF. On follow-up visit she reported chest discomfort and nuclear stress test was done for further evaluation showing normal myocardial perfusion imaging. Holter showed frequent sinus tachycardia and her metoprolol dose was increased. She now presents for follow-up. Today she reports that in the last few weeks she has been having significant issues with headaches. She has been to the ER on 2 occasions and did have a CAT scan showing no acute findings. On 1 visit she was found to have magnesium 1.4. She is on a magnesium supplement and her dose was increased. She has had issues with low magnesium in the past. She continues on Lasix 40 mg daily and reports that she is frequently feeling dry in her mouth and has high thirst. No shortness of breath, PND, orthopnea or edema. No chest discomfort at rest or with activity. She is having frequent rapid heartbeat but tells me it has been slightly better with the metoprolol 50 mg b.i.d.. She has been doing only light physical activities due to her headaches. Taking all meds as directed. [facility] Medical History Asthma GERD (gastroesophageal reflux disease) CKD (chronic kidney disease) Anemia Cardiomyopathy Gout Pulmonary nodule Arthritis Fibromyalgia Anxiety and depression Lower back pain Panic attack H/O ETOH abuse Breast cancer Hypertension Surgical History Hx of surgical biopsy (07/27/25) History of lumpectomy of left breast (06/28/25) Hx of knee surgery Hx of right mastectomy H/O colonoscopy History of carpal tunnel release Hx of tubal ligation History of breast lump/mass excision H/O: hysterectomy Family History Mother Heart disease Alzheimers disease Father Heart disease Brother Asthma Heart disease Social History Household Members: None Housing: Apartment Housing Other:: 4th floor. No elevator Are you a primary career development counselor to a significant other at home: No Do you presently have visiting nurse or other home services: No Alcohol intake: current Alcohol intake frequency: holidays/special occasions only Alcohol type: hard liquor Comment: counts correct Patient Tobacco Use Status: Current everyday Tobacco user Tobacco use type: Cigarette Cigarettes Per Day: 5 Years Smoked: 38YRS e-Cigarette/Vaping Use: Never Used Second Hand Smoke Exposure: Yes Advance Directives Date on File: 02/11/22 service: No Current occupational status: disabled Gender identity: Female Female Reproductive History Menstrual Age of Menarche: 7 Review of Systems Const Details: thirst All systems reviewed & are unremarkable except as noted in HPI and below Reports headache(s) ENT Denies dizziness and Reports headache(s) Card Denies chest pain, Denies chest pain at rest, Denies chest pain with activity, Reports rapid heart rate, Denies pedal edema, Denies edema, Denies leg edema, Denies lightheadedness, Denies palpitations, Denies dyspnea, Denies dyspnea on exertion and Denies orthopnea Resp Denies cough, Denies dyspnea and Denies dyspnea on exertion GI Denies hematochezia and Denies change in stool character Musc Denies abnormal gait, Denies limited range of motion, Denies muscle cramps, Denies muscle weakness, Denies numbness, Denies radiating pain into limb, Denies stiffness and Denies tingling Neuro Denies abnormal gait, Denies dizziness, Reports headache(s), Denies numbness and Denies tingling Endo Denies palpitations Physical Exam Vital Signs: Last Vital Signs Pulse 105 H 09/04/25 15:04 BP 128/82 09/04/25 15:04 BMI result Body Mass Index 30.7 Const Other: Reporting headache today General: cooperative, healthy appearing and no acute distress Orientation/consciousness: patient oriented x3 Neck Neck: Yes normal visual inspection and Yes no JVD Resp Effort & Inspection: normal respiratory effort Auscultation: clear to auscultation bilaterally, no rales, no rhonchi and no wheezes Cardio Rate: tachycardic Rhythm: regular rhythm Heart sounds: S1 normal heart sound present, S2 normal heart sound present, no gallops, no murmurs and no rubs Neuro General: patient oriented x3 Extrem General: Yes normal to inspection, No no pedal edema and No calf tenderness Psych Appearance: grossly normal Mental Status: mental status grossly normal Speech and movement: Normal speech and movement present Assessment & Plan Assessment & Plan (1) Sinus tachycardia: Code(s): R00.0 - Tachycardia, unspecified Category: Medical Plan: Newer sinus tachycardia, which may be inappropriate. Labs checked and reviewed showing no significant abnormalities. She was put on metoprolol and Holter monitor 03/16/2025 showed sinus rhythm and sinus tachycardia, 99% of time heart rate greater than 100, average 116, rare PACs. On last visit metoprolol further increase metoprolol to 50 mg b.i.d.. Pulse today 105. Discussed further increasing metoprolol and she declines at this time. She wants to see how she is on the reduced Lasix dose. It is possible that current tachycardia could be related to her pain from headache, mild dehydration. Will re-evaluate pulse next visit, 4-6 weeks. (2) (HFpEF) heart failure with preserved ejection fraction: Code(s): I50.30 - Unspecified diastolic (congestive) heart failure Category: Medical Plan: Echocardiogram done 10/18/2021 had shown EF 30-35%, mild LVH. Reduced EF at that time may have been related to alcohol use, hypertension. She did follow with our office again until 07/2024, after admission for Congestive heart failure. Echo 06/23/2024 showed EF 55-60%, small loculated effusion over the left ventricle. Managed medically and repeat Echocardiogram done 02/02/2025 showing EF 50%, small loculated effusion over the left ventricle. She does not appear fluid overloaded on exam today. She is reporting thirst. Will reduce Lasix down to 20 mg daily. Recheck of labs in 2 weeks, BMP, pro BNP and mag nesium. Continue losartan and metoprolol XL for neurohormonal modulation. Signs and symptoms of heart failure reviewed with her. (3) Chest discomfort: Code(s): R07.89 - Other chest pain Category: Medical Plan: Prior reports of Atypical chest discomfort at this time which is worse with palpation, possible costochondritis. Nuclear stress test done 02/09/2025 showed exercise 5 minutes with no EKG changes and normal myocardial perfusion imaging. Denying chest discomfort at this time. (4) Hypertension: Code(s): I10 - Essential (primary) hypertension Category: Medical Qualifiers: Hypertension type: unspecified Qualified Code(s): I10 - Essential (primary) hypertension Plan: Blood pressure goal less than 130/80. Blood pressure normal today. Reducing Lasix Plan I discussed with the patient the management of her tachycardia with metoprolol and the plan to reduce furosemide to address Thirst and potential electrolyte imbalance. We reviewed her persistent migraines and the normal CT scan results, emphasizing the importance of monitoring her magnesium levels. Plan for labs in 2 weeks for reassessment of electrolytes and magnesium. Orders: Orders Magnesium Today ARCHIE Chavez I50.30 - Unspecified diastolic (congestive) heart failure, R00.0 - Tachycardia, unspecified NT Pro B Type Natriuretic Pept Today ARCHIE Chavez I50.30 - Unspecified diastolic (congestive) heart failure, R00.0 - Tachycardia, unspecified Basic Metabolic Panel Today ARCHIE Chavez I50.30 - Unspecified diastolic (congestive) heart failure, R00.0 - Tachycardia, unspecified Medications: New furosemide (Lasix) dose reduced 20 mg PO DAILY 30 tabs 5RF ARCHIE Chavez Changed From magnesium oxide 400 mg PO BID 3 days 6 caps 0RF To magnesium oxide 400 mg PO QID Forest Rush MD Discontinued furosemide Discontinued Reason: Doctor's Order 40 mg See Protocol PO DAILY 30 tabs 0RF Patient Instructions: - Continue taking metoprolol as prescribed. - Reduce furosemide to 20 mg daily and monitor for symptoms of fluid retention.. - Report any worsening of symptoms or new symptoms immediately. Patient was informed and verbally consented to the use of an ambient scribe for clinic note documentation during this visit. Visit time spent on chart review, interview, assessment, orders, documentation. Coding Level of Care Code Est Pt Level 4 (37800) Complex EM visit Add On G2211 Diagnoses Sinus tachycardia R00.0 (HFpEF) heart failure with preserved ejection fraction I50.30 Chest discomfort R07.89 Hypertension I10 Hypertension type: unspecified Time Spent (min) 28
== END 2025-09-04 15:49 | disposition home or self-care (01) ==
LOC: HO.HCS 14:47
PROVIDERS: PCP Family Medicine; Visit Provider Nurse Practitioner Family
DX: R00.0 Tachycardia, unspecified (principal); I50.30 Unspecified diastolic (congestive) heart failure; R07.89 Other chest pain; I10 Essential (primary) hypertension
CPT/HCPCS: 99214

== ENCOUNTER → 2025-09-04 14:47 | Outpatient (BNVA) | payer MEDICAID, SELFPAY | PROVIDERS: PCP Family Medicine; Visit Provider Nurse Practitioner Family | DX: R00.0 Tachycardia, unspecified (principal); R07.89 Other chest pain; I11.0 Hypertensive heart disease with heart failure; I50.30 Unspecified diastolic (congestive) heart failure | CPT/HCPCS: 99212 ==

== ENCOUNTER 2025-09-06 15:30 | Outpatient (AMB) | payer MEDICAID, SELFPAY ==
--- OUTSIDE RECORDS SUMMARY | 2025-08-31 10:56 | XMS_ITS | Encounter Summary ---
Author Organization [employer] Address [address] [place] [address] Care Team Providers Care Field Handyman Name Role Phone Shereen Latham MD Primary Care Provider [phone] Encounter Details Date Type Department Care Team (Latest Contact Info) Description 08/31/2025 11:56 AM EDT - 08/31/2025 11:59 PM EDT Hospital Encounter [facility] Radiation Oncology [address] [place] [address] Discharge Disposition: Home or Self Care Social History Tobacco Use Types Packs/Day Years Used Date Smoking Tobacco: Every Day Cigarettes Smokeless Tobacco: Never Comments:Patient currently s mokes 1-2 cigarettes per day. Prior history of heavy smoking. Alcohol Use Standard Drinks/Week Comments Yes 0 (1 standard drink = 0.6 oz pur e alcohol) History of heavy drinking Comments Unknown Sex and Gender Information Value Date Recorded Sex Assigned at Not on file Legal Sex Female 9:51 AM EST Gender Identity Not on file Sexual Orientation Not on file Occupation Industry Job Start Date Job End Date Disability Not on file Not on file Not on file documented as of this encounter Functional Status * Are you deaf or do you have serious difficulty hearing? Answer Date of Assessment Author No 08/13/2025 3:53 PM EDT Shilpi Pitt RN * Are you blind or do you have serious difficulty seeing, even when wearing glasses? Answer Date of Assessment Author No 08/13/2025 3:53 PM EDT Shilpi Pitt RN * Do you have serious difficulty walking or climbing stairs? Answer Date of Assessment Author No 08/13/2025 3:53 PM EDT Shilpi Pitt RN * Do you have serious difficulty dressing or bathing? Answer Date of Assessment Author No 08/13/2025 3:53 PM EDShilpi Pizano RN * Because of a physical, mental, [...] Shilpi Sotelo RN documented in this encounter Medications at Time of Discharge acetaminophen (TYLENOL) 500 mg tablet TAKE 1 TABLET BY MOUTH EVERY 6 TO 8 HOURS NEEDED FOR PAIN OR FEVER 09/26/2024 albuterol 2.5 mg /3 mL (0.083 %) nebulizer solution INHALE 1 AMPULE USING A NEBULIZER EVERY 4 TO 6 HOURS NEEDED FOR WHEEZING 07/28/2025 allopurinoL (ZYLOPRIM) 100 mg tablet Take 1 tablet (100 mg total) by mouth 2 times daily. 07/13/2024 carBAMazepine (TEGretol) 200 mg tablet TAKE 1/2 TABLET BY MOUTH TWICE DAILY IN THE MORNING AND EVENING 05/09/2025 carvediloL (COREG) 6.25 mg tablet TAKE 1 TABLET BY MOUTH TWICE DAILY IN THE MORNING AND IN THE EVENING cetirizine (ZyrTEC) 10 mg tablet Take 1 tablet (10 mg total) by mouth. 07/07/2024 cholecalciferol (VITAMIN D-3) 25 mcg (1,000 unit) capsule Take 1 capsule (1,000 Units total) by mouth 1 (one) time each day in the morning. 10/22/2023 clonazePAM (KlonoPIN) 0.5 mg tablet TAKE 1 TABLET BY MOUTH EVERY DAY NEEDED PANIC ATTACK 07/26/2025 Deep Sea Nasal 0.65 % nasal spray INSTILL 1 SPRAY IN EACH NOSTRIL ONCE DAILY NEEDED FOR CONGESTION 03/29/2025 diclofenac (VOLTAREN) 1 % topical gel Apply 1 Application topically. 07/20/2025 docusate sodium (COLACE) 100 mg capsule Take 1 capsule (100 mg total) by mouth. at bedtime 06/07/2025 doxycycline (VIBRAMYCIN) 100 mg capsule TAKE 1 CAPSULE BY MOUTH TWICE A DAY FOR 7 DAYS WITH FULL GLASS OF WATER DO NOT LIE DOWN FOR 30 MINS 06/16/2025 Fiber-Lax 625 mg tablet TAKE 1 TABLET BY MOUTH EVERY DAY WITH A FULL GLASS OF WATER 06/07/2025 fluticasone furoate (Arnuity Ellipta) 100 mcg/actuation blister with device inhaler INHALE 1 PUFF BY MOUTH EVERY DAY AT THE SAME TIME RINSE MOUTH AFTER USING 08/01/2024 fluticasone propion-salmeter oL (ADVAIR HFA) 115-21 mcg/actuation inhaler Inhale 2 puffs by mouth 2 times daily. folic acid (FOLVITE) 1 mg tablet Take 1 tablet (1,000 mcg total) by mouth 1 (one) time each day in the morning. furosemide (LASIX) 40 mg tablet Take 1 tablet (40 mg total) by mouth 1 (one) time each day in the morning. 05/03/2025 hydrocortisone 2.5 % cream APPLY 1 GRAM TOPICALLY TO AFFECTED AREA(S) THREE TIMES DAILY NEEDED FOR IRRITATION 07/24/2025 lidocaine (LIDODERM) 5 % patch APPLY 1 PATCH TOPICALLY TO SKIN, LEAVE ON FOR 12 HOURS AND OFF FOR 12 HOURS DIRECTED lisinopriL (PRINIVIL,ZESTRI L) 20 mg tablet Take 2 tablets (40 mg total) by mouth. 02/24/2019 loratadine 10 mg capsule Take 10 mg by mouth. 01/22/2022 LORazepam (ATIVAN) 1 mg tablet TAKE 1 TABLET BY MOUTH EVERY DAY NEEDED FOR SEVERE ANXIETY losartan (COZAAR) 25 mg tablet TAKE 1 TABLET BY MOUTH TWICE DAILY IN THE MORNING AND IN THE EVENING 07/18/2024 magnesium oxide (MAG-OX) 400 mg (241.3 elemental magnesium) tablet TAKE 1 TABLET BY MOUTH THREE QID 01/22/2022 methocarbamoL (ROBAXIN) 750 mg tablet Take 1 tablet (750 mg total) by mouth 2 (two) times a day if needed. for pain 11/01/2024 metoprolol succinate (TOPROL-XL) 25 mg 24 hr tablet Take 1 tablet (25 mg total) by mouth. 01/20/2025 metoprolol succinate (TOPROL-XL) 50 mg 24 hr tablet Take 1 tablet (50 mg total) by mouth 2 times daily. mometasone (NASONEX) 50 mcg/actuation nasal spray Administer 2 sprays into each nostril daily. 06/16/2025 mupirocin (BACTROBAN) 2 % ointment APPLY TOPICALLY TO THE AFFECTED AREA(S) TWICE DAILY FOR 5 DAYS (NOSTRIL) 10/20/2024 naproxen (NAPROSYN) 500 mg tablet Take 1 tablet (500 mg total) by mouth 2 (two) times a day. for 7 days 11/21/2024 omeprazole (PriLOSEC) [address] capsule Take 1 capsule (20 mg total) by mouth 1 (one) time each day before breakfast. oxyCODONE (ROXICODONE) 5 mg immediate release tablet TAKE 1 TABLET BY MOUTH EVERY 6 HOURS NEEDED FOR PAIN (PAIN SCALE 7-10) 07/27/2025 pregabalin (LYRICA) 25 mg capsule Take 3 capsules (75 mg total) by mouth. at bedtime 07/31/2025 spironolactone (ALDACTONE) 25 mg tablet Take 0.5 tablets (12.5 mg total) by mouth 1 (one) time each day in the morning. thiamine 100 mg tablet Take 1 tablet (100 mg total) by mouth 1 (one) time each day in the morning. 04/10/2025 Ventolin HFA 90 mcg/actuation inhaler Inhale 2 puffs by mouth 4 (four) times a day if needed. 09/26/2024 documented as of this encounter Discharge Disposition Disposition Code Departure Means Destination Home or Self Care documented in this encounter Plan of Treatment Upcoming Encounters Date Type Department Care Team (Late st Contact Info) Description 09/13/2025 12:00 PM EST Appointment [facility] Radiation Oncology [address] [place] [phone] 09/13/2025 1:00 PM EST Appointment [facility] Radiation Oncology [address] [place] [phone] Pal Ureña MD [address] [place] [address] 09/14/2025 3:00 PM EST Procedure visit Orthopedic Surgery - [place] [address] [address] Antony Garrett, DPWilmar [address] [address] documented as of this encounter Visit Diagnoses Not on filedocumented in this encounter Care Teams Field Handyman Relationship Specialty Start Date End Date [place], MD Shereen [address] [place] [phone] PCP - General 01/13/1996 documented as of this encounter
--- OUTSIDE RECORDS SUMMARY | 2025-08-31 10:56 | XMS_ITS | Encounter Summary ---
Author Organization [facility] Address [address] [place] [address] Care Team Providers Care Tax Accounting Manager Name Role Phone Shereen Latham MD Primary Care Provider [phone] Reason for Referral * Radiation Therapy (Routine) - Pending Review Specialty Diagnoses / Procedures Referred By Contac t Referred To Contact Radiation Oncology Diagnoses Malignant neoplasm of upper-outer quadrant of left breast in female, estrogen receptor positive (CMS/HCC V24, CMS/HCC V28) Procedures Rad Onc Treatment Planning Simulation Pal Ureña MD [address] [place] [phone] Phone: tel: fax: Referral ID Status Reason Start Date Expiration Date V isits Requested Visits Authorized [id number] Pending Review 08/31/2025 08/31/2026 1 1 * Consultation (Routine) - Closed Specialty Diagnoses / Procedures Referred By Contac t Referred To Contact Radiation Oncology Diagnoses Malignant neoplasm of left breast in female, estrogen receptor positive, unspecified site of breast (CMS/HCC V24, CMS/HCC V28) Mirela Grande MD [address] [facility] ATTN: HEMATOLOGY/[place] [address] Phone: tel: fax: [facility] Radiation Oncology [address] [place] [address] Phone: tel: fax: Referral ID Status Reason Start Date Expiration Date V isits Requested Visits Authorized [id number] Closed Specialty Services Required 08/10/2025 08/10/2026 1 1 Reason for Visit * Reason Comments Consult Breast cancer - [facility] * Consultation (Routine) - Closed Specialty Diagnoses / Procedures Referred By Contac t Referred To Contact Radiation Oncology Diagnoses Malignant neoplasm of left breast in female, estrogen receptor positive, unspecified site of breast (CMS/HCC V24, CMS/[facility] V28) Mirela Grande MD [address] [facility] ATTN: HEMATOLOGY/[place] [address] Phone: tel: fax: [facility] Radiation Oncology [address] [place] [phone] Phone: tel: fax: Referral ID Status Reason Start Date Expiration Date V isits Requested Visits Authorized [id number] Closed Specialty Services Required 08/10/2025 08/10/2026 1 1 Encounter Details Date Type Department Care Team (Latest Contact Info) Description 08/31/2025 11:56 AM EDT - 08/31/2025 11:59 PM EDT Hospital Encounter [facility] Radiation Oncology [address] [place] [phone] Pal Ureña MD [address] [place] [phone] Malignant neoplasm of upper-outer quadrant of left breast in female, estrogen receptor positive (CMS/HCC V24, CMS/[facility] V28) (Primary Dx) Discharge Disposition: Home or Self Care Social [...] on file documented as of this encounter Last Filed Vital Signs Vital Sign Reading Time Taken Comments Blood Pressure 150/98 08/31/2025 12:38 PM EDT Pulse 102 08/31/2025 12:38 PM EDT Temperature - - Respiratory Rate - - Oxygen Saturation 97% 08/31/2025 12:38 PM EDT Inhaled Oxygen Concentration - - Weight 88.7 kg (195 lb 9.6 oz) 08/31/2025 12:38 PM EDT Height 170.2 cm (5' 7 ) 08/31/2025 12:38 PM EDT Body Mass Index 30.64 08/31/2025 12:38 PM EDT documented in this encounter Functional Status * Are you [...] 3:53 PM EDT Shilpi Pitt RN * Because of a physical, mental, or emotional condition, do you have serious difficulty doing errandsalone such as visiting the doctor? Answer Date of Assessment Author No 08/13/2025 3:53 PM EDT Shilpi Pitt RN documented as of this encounter Mental Status * Because of a physical, mental, or emotional condition, do you have serious difficulty concentrating, remembering, or making decisions? (5 years old or older) Answer Entry Date Author No 08/13/2025 3:53 PM EDT Shilpi Pitt RN documented in this encounter Medications at [...] or Self Care documented in this encounter Progress Notes * Padma Galicia NP - 08/31/2025 1:30 PM EDT Images from the original note were not included. Oncological History: 08/15/[address] Urias at [facility] Radiation Oncology. Follow-up pending mastectomy pathology. 10/12/2008-12/2008 AC 02/22/2009-09/13/2010 Taxol 12 weeks. 02/23/2025 Diagnostic Mammogram 1. No mammographic or sonographic abnormality to account for the patient's left breast pain. Recommend clinical evaluation and follow-up. 2. New focal asymmetry in the central outer breast posterior depth with questioned distortion without sonographic correlate. Recommend stereotactic core needle biopsy at this time for confirmation. The findings and recommendations were discussed with the patient the procedure will be scheduled. 03/08/2025 Stereotactic Biopsy 04/20/2025 Breast MRI 06/28/[address] Pringle 07/10/[address] Pringle. Follow-up in 1 month for wound check. 07/27/2025 Left breast lymphoscintigraphy / biopsy 2 sentinel nodes seen in left axilla. 08/01/2025 Follow-up with Dr. Grande. Referred for post lumpectomy radiation. * Linda Saldaña - 08/31/2025 1:00 PM EDTEncounter addended by: Linda Saldaña on: 09/04/2025 5:04 PM Actions taken: Charge Capture section accepted * Manda Cohn MA - 08/31/2025 1:00 PM EDT Patient is here for in office consult with Dr. Ureña Patient reports new onset of migraine headaches with aura. Symptoms started a few weeks ago. Patient reports they are daily. She reports pressure around front of eyes. Patient states she notices thismore after she takes Tylenol. She reports general dizziness. Patient reports some mild discomfort still where she had biopsy done. Medications and allergies reviewed and reconciled. * Pal Ureña MD - 08/31/2025 1:00 PM EDT Images from the original note were not included. Radiation Oncology Consult Staff Physician: Pal Ureña M.D. Requesting Physician: Mirela Grande M.D. Date of Service: 08/31/2025 Azra Cast (: 1975) presents today for consultation as requested by Mirela Grande MD, regarding treatment for an invasive ductal carcinoma of the left breast, pT1bN0(I+)M0, IA, ER/CA+, her 2 neg, s/p partial mastectomy and sentinel lymph node dissection. Assessment/Plan IMPRESSION: Ms. Cast appears to have recovered nicely from her surgeries. OPINIONS AND RECOMMENDATIONS: I spoke with Ms. Cast about the need for adjuvant radiation to the left breast. We discussed the typical course of treatment including the CT for planning, the tattoos for positioning, and the potential side effects. She understands the need for the treatment. She expresses some difficulty with getting here for her treatments on a daily basis but is willing to make the effort. After our discussion, consent was obtained. She will return her next week for the CT scan for planning. She will need to have her arms above her head for treatment. She does have some difficulty withraising and keeping her arms above her head so I asked her to take some Tylenol before she gets here. Subjective HISTORY OF PRESENT ILLNESS: Azra Cast is a 49 y.o. female with a prior history of breast cancer involving the right breast who presents now with a new invasive ductal carcinoma of the left breast and is seen in consultation today for adjuvant radiation. Her oncologic history is as follows: Underwent mastectomy with sentinel lymph node dissection in 2007 for a 2.2cm adenocarcinoma, ER/CA+, her 2 neg, Grade 2 invasive ductal carcinoma. No radiation according to patient. 10/12/2008-12/2008 AC. She delayed completing her treatment 02/22/2009-09/13/2010 Taxol 12 weeks. Stopped due to side effects. 02/23/2025 Diagnostic Mammogram 1. No mammographic or sonographic abnormality to account for the patient's left breast pain. Recommend clinical evaluation and follow-up. 2. New focal asymmetry in the central outer breast posterior depth with questioned distortion without sonographic correlate. Recommend stereotactic core needle biopsy at this time for confirmation. The findings and recommendations were discussed with the patient the procedure will be scheduled. 03/08/2025 Stereotactic Biopsy 04/20/2025 Breast MRI 06/28/[address] Pringle 07/10/[address] Pringle. Follow-up in 1 month for wound check. 07/27/2025 Left breast lymphoscintigraphy / biopsy 2 sentinel nodes seen in left axilla. 08/01/2025 Follow-up with Dr. Grande. Referred for post lumpectomy radiation. She is seen in consultation today. She is not having any problems with the breast. She has multiplecomplaints that she associates with her fibromyalgia but the only thing new maybe some mild intermittent nausea. She is not taking anything for it. PAST MEDICAL HISTORY: Medical History[1] PAST SURGICAL HISTORY: Surgical History[2] GYNECOLOGICAL HISTORY (if applicable): see below FAMILY HISTORY: Family History[3] SOCIAL HISTORY: Social History Socioeconomic History Marital status: Single Spouse name: Not on file Number of children: 3 Years of education: Not on file Highest education level: Not on file Occupational History Occupation: Disability Tobacco Use Smoking status: Every Day Current packs/day: 0.25 Types: Cigarettes Smokeless tobacco: Never Tobacco comments: Patient currently smokes 1-2 cigarettes per day. Prior history of heavy smoking. Vaping Use Vaping status: Never Used Substance and Sexual Activity Alcohol use: Yes Comment: History of heavy drinking Drug use: Not Currently Types: Cocaine Comment: Cocaine use about 5 years ago Sexual activity: Not on file Other Topics Concern Not on file Social History Narrative Not on file ALLERGIES: Allergies as of 08/31/2025 - Reviewed 08/31/2025 Allergen Reaction Noted Amoxicillin Hives and Itching 02/21/2014 Sulfamethoxazole Rash 08/09/2015 Trimethoprim Hives, Itching, and Rash 08/09/2015 Bactrim [sulfamethoxazole-trimethoprim] 08/13/2025 Hydrocodone-acetaminophen Rash 08/31/2025 Ibuprofen Dizziness 05/23/2024 Hydrocodone Hives and Itching 12/13/2018 Latex Hives and Itching 02/20/2023 MEDICATIONS: Current Medications[4] REVIEW OF SYSTEMS: Review of Systems Constitutional: Positive for fatigue. HENT: Negative. Respiratory: Negative. Cardiovascular: Negative. Gastrointestinal: Positive for nausea. Genitourinary: Negative. Musculoskeletal: Positive for arthralgias and myalgias. Skin: Negative. Neurological: Positive for dizziness, extremity weakness, headaches and light-headedness. Psychiatric/Behavioral: Positive for sleep disturbance. The patient is nervous/anxious. Breast: negative. The Karnofsky performance scale today is 100, Fully active, able to carry on all pre-disease performed without restriction (ECOG equivalent 0). Objective PHYSICAL EXAM: Visit Vitals BP (!) 150/98 (BP Location: Right arm, Patient Position: Sitting, BP Cuff Size: Adult) Pulse 102 Ht 1.702 m (67 ) Wt 88.7 kg (195 lb 9.6 oz) SpO2 97% BMI 30.64 kg/m?? Smoking Status Every Day BSA 2 m?? Body mass index is 30.64 kg/m??. Physical Exam Constitutional: Appearance: Normal appearance. Cardiovascular: Rate and Rhythm: Normal rate and regular rhythm. Heart sounds: No murmur heard. Pulmonary: Effort: Pulmonary effort is normal. Breath sounds: Normal breath sounds. No wheezing, rhonchi or rales. Abdominal: General: Abdomen is flat. Bowel sounds are normal. Palpations: Abdomen is soft. There is no mass. Tenderness: There is no abdominal tenderness. Musculoskeletal: Comments: No upper extremity edema. No vertebral or flank tenderness. No supraclavicular or axillary adenopathy. The right chest wall is smooth without any nodularity or suspicious masses. The left breast has an old incision running inferiorly from nipple to abdomen. She says they did some cosmeticwork at the time of her mastectomy. There is a new incision in the upper outer quadrant that is healing well. No suspicious masses in the breast. Neurological: Mental Status: She is alert. DIAGNOSTIC REPORTS REVIEWED: Imaging: MRI, mammogram Laboratory/Pathology: [facility] Procedure: lumpectomy, SLN dissection RADIATION TREATMENT PLANNING SIMULATION ORDER Rad Onc Treatment Planning Simulation Ordered at: 08/31/25 0567 Is this for a new course of treatment? Yes Treatment Goal: Curative Treatment Technique: 3D INSERTER PROMOTIONAL ITEM Simulation Type: DIBH Image Fusion? No Approximate Dose: 5,272 Measurement Unit: cGy Approximate Fractions: 20 Is Boost / Cone down anticipated? Yes Re-Sim anticipated? No Concurrent Chemotherapy? No Planned Start Date: Standard Treatment Site: Breast Laterality: Left Is Oncotype / Mammoprint pending? No Will regional nodes be treated? No Breathhold required? Yes test needed? Yes Has the pt received prior radiation? No Pacemaker, ICD, or any Implanted Device? No Does the pt need an foreign language interpreter? No Clinical Trial? No Patient Position? Supine Head / Neck Position? Neck Extended Arms Position? Up Legs Position? Neutral Immobilization Device(s)? Vac-Jose Board Board Type? Breast Board Supine IGRT anticipated? Yes Do you anticipate the field size being >20 cm? (i.e. whole pelvis, 3 field breast): No Additional Comments: High tangents. Estimated Creatinine Clearance: 87.4 mL/min (by C-G formula based on SCr of 0.87 mg/dL). [1] Past Medical History: Diagnosis Date Anxiety CHF (congestive heart failure) (CMS/HCC V24, CMS/HCC V28) Depression Hypertension [2] History reviewed. No pertinent surgical history. [3] Family History Family history unknown: Yes [4] Current Outpatient Medications Medication Sig Dispense Refill acetaminophen (TYLENOL) 500 mg tablet TAKE 1 TABLET BY MOUTH EVERY 6 TO 8 HOURS NEEDED FOR PAIN OR FEVER albuterol 2.5 mg /3 mL (0.083 %) nebulizer solution INHALE 1 AMPULE USING A NEBULIZER EVERY 4 TO 6 HOURS NEEDED FOR WHEEZING allopurinoL (ZYLOPRIM) 100 mg tablet Take 1 tablet (100 mg total) by mouth 2 times daily. carBAMazepine (TEGretol) 200 mg tablet TAKE 1/2 TABLET BY MOUTH TWICE DAILY IN THE MORNING AND EVENING cetirizine (ZyrTEC) 10 mg tablet Take 1 tablet (10 mg total) by mouth. cholecalciferol (VITAMIN D-3) 25 mcg (1,000 unit) capsule Take 1 capsule (1,000 Units total) by mouth 1 (one) time each day in the morning. clonazePAM (KlonoPIN) 0.5 mg tablet TAKE 1 TABLET BY MOUTH EVERY DAY NEEDED PANIC ATTACK Deep Sea Nasal 0.65 % nasal spray INSTILL 1 SPRAY IN EACH NOSTRIL ONCE DAILY NEEDED FOR CONGESTION diclofenac (VOLTAREN) 1 % topical gel Apply 1 Application topically. docusate sodium (COLACE) 100 mg capsule Take 1 capsule (100 mg total) by mouth. at bedtime doxycycline (VIBRAMYCIN) 100 mg capsule TAKE 1 CAPSULE BY MOUTH TWICE A DAY FOR 7 DAYS WITH FULL GLASS OF WATER DO NOT LIE DOWN FOR 30 MINS Fiber-Lax 625 mg tablet TAKE 1 TABLET BY MOUTH EVERY DAY WITH A FULL GLASS OF WATER fluticasone furoate (Arnuity Ellipta) 100 mcg/actuation blister with device inhaler INHALE 1 PUFF BY MOUTH EVERY DAY AT THE SAME TIME RINSE MOUTH AFTER USING fluticasone propion-salmeteroL (ADVAIR HFA) 115-21 mcg/actuation inhaler Inhale 2 puffs by mouth 2 times daily. folic acid (FOLVITE) 1 mg tablet Take 1 tablet (1,000 mcg total) by mouth 1 (one) time each day in the morning. furosemide (LASIX) 40 mg tablet Take 1 tablet (40 mg total) by mouth 1 (one) time each day in the morning. hydrocortisone 2.5 % cream APPLY 1 GRAM TOPICALLY TO AFFECTED AREA(S) THREE TIMES DAILY NEEDED FOR IRRITATION lisinopriL (PRINIVIL,ZESTRIL) 20 mg tablet Take 2 tablets (40 mg total) by mouth. loratadine 10 mg capsule Take 10 mg by mouth. losartan (COZAAR) 25 mg tablet TAKE 1 TABLET BY MOUTH TWICE DAILY IN THE MORNING AND IN THE EVENING magnesium oxide (MAG-OX) 400 mg (241.3 elemental magnesium) tablet TAKE 1 TABLET BY MOUTH THREE QID methocarbamoL (ROBAXIN) 750 mg tablet Take 1 tablet (750 mg total) by mouth 2 (two) times a day if needed. for pain metoprolol succinate (TOPROL-XL) 50 mg 24 hr tablet Take 1 tablet (50 mg total) by mouth 2 times daily. mometasone (NASONEX) 50 mcg/actuation nasal spray Administer 2 sprays into each nostril daily. mupirocin (BACTROBAN) 2 % ointment APPLY TOPICALLY TO THE AFFECTED AREA(S) TWICE DAILY FOR 5 DAYS (NOSTRIL) naproxen (NAPROSYN) 500 mg tablet Take 1 tablet (500 mg total) by mouth 2 (two) times a day. for 7 days omeprazole (PriLOSEC) [address] capsule Take 1 capsule (20 mg total) by mouth 1 (one) time each day before breakfast. pregabalin (LYRICA) 25 mg capsule Take 3 capsules (75 mg total) by mouth. at bedtime spironolactone (ALDACTONE) 25 mg tablet Take 0.5 tablets (12.5 mg total) by mouth 1 (one) time eachday in the morning. thiamine 100 mg tablet Take 1 tablet (100 mg total) by mouth 1 (one) time each day in the morning. Ventolin HFA 90 mcg/actuation inhaler Inhale 2 puffs by mouth 4 (four) times a day if needed. carvediloL (COREG) 6.25 mg tablet TAKE 1 TABLET BY MOUTH TWICE DAILY IN THE MORNING AND IN THE EVENING (Patient not taking: Reported on 08/31/2025) lidocaine (LIDODERM) 5 % patch APPLY 1 PATCH TOPICALLY TO SKIN, LEAVE ON FOR 12 HOURS AND OFF FOR 12 HOURS DIRECTED (Patient not taking: Reported on 08/31/2025) LORazepam (ATIVAN) 1 mg tablet TAKE 1 TABLET BY MOUTH EVERY DAY NEEDED FOR SEVERE ANXIETY metoprolol succinate (TOPROL-XL) 25 mg 24 hr tablet Take 1 tablet (25 mg total) by mouth. (Patient not taking: Reported on 08/31/2025) oxyCODONE (ROXICODONE) 5 mg immediate release tablet TAKE 1 TABLET BY MOUTH EVERY 6 HOURS NEEDEDFOR PAIN (PAIN SCALE 7-10) (Patient not taking: Reported on 08/31/2025) No current facility-administered medications for this encounter. documented in this encounter Plan of Treatment Upcoming Encounters Date Type Department Care Team (Late st Contact Info) Description 09/13/2025 12:00 PM EST Appointment [facility] Radiation Oncology [address] [place] [phone] 09/13/2025 1:00 PM EST Appointment [facility] Radiation Oncology [address] [place] [phone] Pal Ureña MD [address] [place] [address] 09/14/2025 3:00 PM EST Procedure visit Orthopedic Surgery - [place] [id number] [phone] Antony Garrett, DPWilmar [address] [address] Scheduled Orders Name Type Priority Associated Diagnoses Orde r Schedule Rad Onc Treatment Planning Simulation Radiation Oncology Routine Malignant neoplasm of upper-outer quadrant of left breast in female, estrogen receptor positive ([facility] V24, CMS/[facility] V28) Ordered: 08/31/2025 Scheduled Referrals Name Type Priority Associated Diagnoses Order Schedule Ambulatory referral to Radiation Oncology Outpatient Referral Routine Once for 1 Occurrences starting 08/31/2025 until 08/31/2025 documented as of this encounter Visit Diagnoses Diagnosis Malignant neoplasm of upper-outer quadrant of left breast in female, estrogen receptor positive (CMS/HCC V24, CMS/HCC V28)- Primary documented in this encounter Historical Medications * This list may reflect changes made after this encounter. thiamine 100 mg tablet Take 1 tablet (100 mg total) by mouth 1 (one) time each day in the morning. 04/10/2025 spironolactone (ALDACTONE) 25 mg tablet Take 0.5 tablets (12.5 mg total) by mouth 1 (one) time each day in the morning. Deep Sea Nasal 0.65 % nasal spray INSTILL 1 SPRAY IN EACH NOSTRIL ONCE DAILY NEEDED FOR CONGESTION 03/29/2025 pregabalin (LYRICA) 25 mg capsule Take 3 capsules (75 mg total) by mouth. at bedtime 07/31/2025 oxyCODONE (ROXICODONE) 5 mg immediate release tablet TAKE 1 TABLET BY MOUTH EVERY 6 HOURS NEEDED FOR PAIN (PAIN SCALE 7-10) 07/27/2025 omeprazole (PriLOSEC) [address] capsule Take 1 capsule (20 mg total) by mouth 1 (one) time each day before breakfast. naproxen (NAPROSYN) 500 mg tablet Take 1 tablet (500 mg total) by mouth 2 (two) times a day. for 7 days 11/21/2024 mupirocin (BACTROBAN) 2 % ointment APPLY TOPICALLY TO THE AFFECTED AREA(S) TWICE DAILY FOR 5 DAYS (NOSTRIL) 10/20/2024 mometasone (NASONEX) 50 mcg/actuation nasal spray Administer 2 sprays into each nostril daily. 06/16/2025 metoprolol succinate (TOPROL-XL) 50 mg 24 hr tablet Take 1 tablet (50 mg total) by mouth 2 times daily. metoprolol succinate (TOPROL-XL) 25 mg 24 hr tablet Take 1 tablet (25 mg total) by mouth. 01/20/2025 methocarbamoL (ROBAXIN) 750 mg tablet Take 1 tablet (750 mg total) by mouth 2 (two) times a day if needed. for pain 11/01/2024 magnesium oxide (MAG-OX) 400 mg (241.3 elemental magnesium) tablet TAKE 1 TABLET BY MOUTH THREE QID 01/22/2022 losartan (COZAAR) 25 mg tablet TAKE 1 TABLET BY MOUTH TWICE DAILY IN THE MORNING AND IN THE EVENING 07/18/2024 LORazepam (ATIVAN) 1 mg tablet TAKE 1 TABLET BY MOUTH EVERY DAY NEEDED FOR SEVERE ANXIETY loratadine 10 mg capsule Take 10 mg by mouth. 01/22/2022 lisinopriL (PRINIVIL,ZESTRI L) 20 mg tablet Take 2 tablets (40 mg total) by mouth. 02/24/2019 lidocaine (LIDODERM) 5 % patch APPLY 1 PATCH TOPICALLY TO SKIN, LEAVE ON FOR 12 HOURS AND OFF FOR 12 HOURS DIRECTED hydrocortisone 2.5 % cream APPLY 1 GRAM TOPICALLY TO AFFECTED AREA(S) THREE TIMES DAILY NEEDED FOR IRRITATION 07/24/2025 furosemide (LASIX) 40 mg tablet Take 1 tablet (40 mg total) by mouth 1 (one) time each day in the morning. 05/03/2025 folic acid (FOLVITE) 1 mg tablet Take 1 tablet (1,000 mcg total) by mouth 1 (one) time each day in the morning. fluticasone propion-salmeter oL (ADVAIR HFA) 115-21 mcg/actuation inhaler Inhale 2 puffs by mouth 2 times daily. fluticasone furoate (Arnuity Ellipta) 100 mcg/actuation blister with device inhaler INHALE 1 PUFF BY MOUTH EVERY DAY AT THE SAME TIME RINSE MOUTH AFTER USING 08/01/2024 doxycycline (VIBRAMYCIN) 100 mg capsule TAKE 1 CAPSULE BY MOUTH TWICE A DAY FOR 7 DAYS WITH FULL GLASS OF WATER DO NOT LIE DOWN FOR 30 MINS 06/16/2025 docusate sodium (COLACE) 100 mg capsule Take 1 capsule (100 mg total) by mouth. at bedtime 06/07/2025 diclofenac (VOLTAREN) 1 % topical gel Apply 1 Application topically. 07/20/2025 clonazePAM (KlonoPIN) 0.5 mg tablet TAKE 1 TABLET BY MOUTH EVERY DAY NEEDED PANIC ATTACK 07/26/2025 cholecalciferol (VITAMIN D-3) 25 mcg (1,000 unit) capsule Take 1 capsule (1,000 Units total) by mouth 1 (one) time each day in the morning. 10/22/2023 cetirizine (ZyrTEC) 10 mg tablet Take 1 tablet (10 mg total) by mouth. 07/07/2024 carvediloL (COREG) 6.25 mg tablet TAKE 1 TABLET BY MOUTH TWICE DAILY IN THE MORNING AND IN THE EVENING carBAMazepine (TEGretol) 200 mg tablet TAKE 1/2 TABLET BY MOUTH TWICE DAILY IN THE MORNING AND EVENING 05/09/2025 Fiber-Lax 625 mg tablet TAKE 1 TABLET BY MOUTH EVERY DAY WITH A FULL GLASS OF WATER 06/07/2025 allopurinoL (ZYLOPRIM) 100 mg tablet Take 1 tablet (100 mg total) by mouth 2 times daily. 07/13/2024 Ventolin HFA 90 mcg/actuation inhaler Inhale 2 puffs by mouth 4 (four) times a day if needed. 09/26/2024 albuterol 2.5 mg /3 mL (0.083 %) nebulizer solution INHALE 1 AMPULE USING A NEBULIZER EVERY 4 TO 6 HOURS NEEDED FOR WHEEZING 07/28/2025 acetaminophen (TYLENOL) 500 mg tablet TAKE 1 TABLET BY MOUTH EVERY 6 TO 8 HOURS NEEDED FOR PAIN OR FEVER 09/26/2024 added in this encounter Care Teams Tax Accounting Manager Relationship Specialty Start Date End Date Shereen Latham MD [address] [place] [phone] PCP - General 01/13/1996 documented as of this encounter
--- NOTE | 2025-09-06 15:32 | MHC.OFFVIS ---
Vital Signs 09/06/25 15:40 Height 5 ft 7 in Weight 195 lb BMI 30.5 BP 126/86 Blood Pressure Location Rt brachial Position Sitting Pulse 104 H Pulse Source Pulse Oximeter Pulse Oximetry (%) 98 Oxygen Delivery Method Room Air Intake Visit Reasons: 3 mo f/u Intake Note: Est pt for constipation w/ hemorrhoid mgmt. CC: C.O. persistence of BM irregularities including incontinence / leakage of stool, loose stools + diarrhea, anal fissures. Pt states that she recently had a procedure to treat the anal fissures but is still having sx. Pt reports that the hydrocortisone is actually making her sx worse. Dust Collector Operator Required: No Accompanied by: Self / Same As Patient Allergies amoxicillin (AMOXICILLIN) Allergy (Intermediate, Verified 09/15/25 14:08) rash, rash/itching sulfamethoxazole (From BACTRIM) Allergy (Intermediate, Verified 09/15/25 14:08) RASH trimethoprim (From BACTRIM) Allergy (Intermediate, Verified 09/15/25 14:08) RASH hydrocodone (Hydrocodone) Allergy (Mild, Verified 09/15/25 14:08) ITCH ibuprofen (From Motrin) Allergy (Mild, Verified 09/15/25 14:08) UPSET STOMACH latex (Latex) Allergy (Mild, Verified 09/15/25 14:08) ITCH HPI HPI 3 mo f/u: Details: LAST VISIT: Hemorrhoids Irritable bowel syndrome Postprandial abdominal bloating Constipation Plan Patient will try Sitz baths with Epsom salt. Will send her script for Proctosol and Colace. Referral to General surgery for possible hemorrhoidectomy. Patient was encouraged to increase fiber, fluid intake and activity to promote better bowel motility. Patient will follow-up in our office in 3 months, sooner on as needed basis. She is agreeable to this plan and verbalizes understanding of instructions. She was given the opportunity to ask questions and all questions answered ? Thank you for allowing me to participate in her care Referrals General Surgery Referral K64.9 New hydrocortisone 2.5% (Proctosol HC) 1 appl MA BID-QID PRN 30 grams 2RF hemorrhoids K64.9 docusate sodium 100 mg PO BEDTIME 90 caps 3RF K59.00 methylcellulose (laxative) (Citrucel) take it with full glass of water 500 mg PO DAILY 90 tabs 2RF K59.00 TODAY'S VISIT Patient is here today for follow-up. She saw General surgery for anal fistula repair. Patient reports that currently she is having loose stools. Previously she had constipation and had to strain. Now she feels like she is incontinent of stool. She is not taking any fiber. Currently she is taking stool softener and Mag oxide few times a day. Patient denies melena, hematochezia, unintentional weight loss or ribbon like stools. Patient denies any dyspepsia, dysphagia or odynophagia. She is taking omeprazole in her symptoms of acid reflux have been suppressed. Patient denies any nausea or vomiting. Denies any other GI concerning symptoms. She did mention that Proctosol cream is not helping her. In fact patient states that her symptoms are worse. Feels like when she uses Proctosol her rectum is more irritated and sore. [facility] Medical History Asthma GERD (gastroesophageal reflux disease) CKD (chronic kidney disease) Anemia Cardiomyopathy Gout Pulmonary nodule Arthritis Fibromyalgia Anxiety and depression Lower back pain Panic attack H/O ETOH abuse Breast cancer Hypertension Surgical History Hx of surgical biopsy (07/27/25) History of lumpectomy of left breast (06/28/25) Hx of knee surgery Hx of right mastectomy H/O colonoscopy History of carpal tunnel release Hx of tubal ligation History of breast lump/mass excision H/O: hysterectomy Family History Mother Heart disease Alzheimers disease Father Heart disease Brother Asthma Heart disease Social History Household Members: None Housing: Apartment Housing Other:: 4th floor. No elevator Are you a primary childcare aide to a significant other at home: No Do you presently have visiting nurse or other home services: No Alcohol intake: current Alcohol intake frequency: holidays/special occasions only Alcohol type: hard liquor Comment: counts correct Patient Tobacco Use Status: Current everyday Tobacco user Tobacco use type: Cigarette Years Smoked: 38YRS e-Cigarette/Vaping Use: Never Used Second Hand Smoke Exposure: Yes Advance Directives Date on File: 02/11/22 service: No Current occupational status: disabled Gender identity: Female Female Reproductive History Menstrual Age of Menarche: 7 Review of Systems Const Denies weight gain and Denies weight loss ENT Reports no additional complaints, Denies dysphagia and Denies odynophagia Card Reports no additional complaints Resp Reports no additional complaints GI Denies abdominal pain, Denies belching, Denies melena, Denies bloating, Denies change in bowel habits, Reports constipation, Denies dysphagia, Denies excessive flatus, Denies dyspepsia, Denies heartburn, Denies diarrhea, Reports loose stools, Denies nausea, Denies odynophagia and Denies vomiting Reports no additional complaints Musc Reports no additional complaints Neuro Reports no additional complaints Psych Reports no additional complaints Endo Reports no additional complaints Physical Exam Vital Signs: Last Vital Signs Pulse 104 H 09/06/25 15:40 BP 126/86 09/06/25 15:40 Pulse Ox 98 09/06/25 15:40 Oxygen Delivery Method Room Air 09/06/25 15:40 BMI result Body Mass Index 30.5 Const General: healthy appearing, no acute distress and well developed Nutritional Appearance: well nourished and obese Orientation/consciousness: patient oriented x3 Resp Effort & Inspection: normal respiratory effort, able to speak in complete sentences, no tracheal deviation and symmetric chest movement Auscultation: clear to auscultation bilaterally Cardio Rate: regular rate GI Inspection: Yes normal to inspection, No distended and Yes obesity Palpation (GI): Soft to palpation, not firm, nontender and No hepatosplenomegaly present Auscultation: normal bowel sounds General: Yes no CVA tenderness Back/Spine/Pelvis Back: no CVA tenderness Skin General skin exam: elasticity normal, turgor normal and dry skin Neuro General: patient oriented x3 Psych Appearance: grossly normal Mental Status: mental status grossly normal Assessment & Plan Assessment & Plan (1) Anal fissure: Code(s): K60.2 - Anal fissure, unspecified Category: Medical (2) Hemorrhoids: Code(s): K64.9 - Unspecified hemorrhoids Qualifiers: Hemorrhoid type: unspecified Qualified Code(s): K64.9 - Unspecified hemorrhoids (3) Irritable bowel syndrome: Code(s): K58.9 - Irritable bowel syndrome, unspecified Qualifiers: Irritable bowel syndrome type: with both diarrhea and constipation Qualified Code(s): K58.2 - Mixed irritable bowel syndrome (4) Postprandial abdominal bloating: Code(s): R14.0 - Abdominal distension (gaseous) (5) Constipation: Code(s): K59.00 - Constipation, unspecified Qualifiers: Constipation type: slow transit constipation Qualified Code(s): K59.01 - Slow transit constipation (6) Diarrhea: Code(s): R19.7 - Diarrhea, unspecified Qualifiers: Diarrhea type: functional diarrhea Qualified Code(s): K59.1 - Functional diarrhea Plan Discussed with patient will FODMAP diet. Patient will try to take Citrucel with pre and probiotics. Increase fluid intake and activity to promote better bowel motility. Patient was encouraged to do Sitz baths with Epsom salts. Follow-up with general surgeon as needed to check for fissure reoccurrence. Continue PPI. Follow up in our office in 6 months. Patient was encouraged to call if she will have any GI concerning symptoms. Patient is agreeable to this plan and verbalizes understanding of instructions. She was given the opportunity to ask questions and all questions answered. Thank you for allowing me to participate in her care Coding Level of Care Code Est Pt Level 3 (11871) Diagnoses Anal fissure K60.2 Hemorrhoids, unspecified hemorrhoid type K64.9 Hemorrhoid type: unspecified Irritable bowel syndrome with both constipation and diarrhea K58.2 Irritable bowel syndrome type: with both diarrhea and constipation Postprandial abdominal bloating R14.0 Slow transit constipation K59.01 Constipation type: slow transit constipation Functional diarrhea K59.1 Diarrhea type: functional diarrhea Time Spent (min) 30 Comment 20 minutes spent with patient and additional 10 minutes spent reviewing her records
[2025-09-06 15:40] VITALS: BP 126/86; PULSE 104; O2SAT 98; BMI 30.5
--- OUTSIDE RECORDS SUMMARY | 2025-09-06 18:21 | XMS_ITS | Encounter Summary ---
Author Organization [employer] Address [address] [facility] [address] [place] [address] Care Team Providers Care Pharmacy Messenger Name Role Phone Shereen Latham MD Primary Care Provider [phone] Nupur Bullock PharmD Unavailable [phone] Sury Benitez Unavailable [phone] Julius, Nirali OD Unavailable Li Grande MD Unavailable [phone] Anselmo Gates MD Unavailable Margaret Holman Unavailable Herberth Stokes MD Unavailable [phone] Hilton Palacios MD Unavailable Aaron Pringle MD Unavailable [phone] Lori James Unavailable Neelima Raygoza Unavailable Ronda Rodríguez Unavailable Neelima Raygoza Unavailable Neelima Raygoza Unavailable Encounter Details Date Type Department Care Team (Late st Contact Info) Description 05/02/2024 Orders Only [facility] MEDICINE [address] [place] [address] Shereen Latham MD [address] [place] [address] Gout, unspecified cause, unspecified chronicity, unspecified site [...] Description 09/13/2025 3:15 PM EST Office Visit [facility] MEDICINE [address] [place] [address] Shereen Ltaham MD [address] [place] [address] 10/02/2025 2:00 PM EST Office Visit [facility] ADULT DENTAL [address] [place] [address] Paz-Connor, Isa, DDS [address] [place] [address] documented as of this encounter Visit Diagnoses Diagnosis Gout, unspecified cause, unspecified chronicity, unspecified site- Primary documented in this encounter Additional Health Concerns Assessment Noted Time PHQ-9 Depression Total Score: 23 024 1:45 PM EDT documented as of this encounter Care Teams Pharmacy Messenger Relationship Specialty Start Date End Date Shereen Latham MD [address] [place] [address] PCP - General Family Medicine 11/02/18 Nupur Bullock PharmD [address] [place] [address] Pharmacist Internal Medicine 08/09/24 05/15/25 Sury Benitez [address] [place] [address] [place] [address] [place] [phone] Pulmonary Disease 09/27/24 Nirali Madrid OD [address] [place] [id number] Optometry 10/27/24 Li Grande MD [address] [place] [phone] Hematology and Oncology 10/27/24 Anselmo Gates MD [address] [facility] [address] [place] [address] Orthopaedic Surgery 10/27/24 Margaret Holman [address] [facility] [address] [place] [address] Cardiology 10/27/24 Herberth Stokes MD [address] [facility] [address] [place] [address] Gastroenterology 10/27/24 Hilton Palacios MD [address] [facility], [address] [place] [address] Neurology 02/06/25 Aaron Pringle MD [address] [place] [phone] General Surgery 03/07/25 Lori James Registered Nurse 06/15/25 06/15/25 Neelima Raygoza 06/15/25 06/16/25 Ronda Rodríguez [address] [place] [address] [address] [place] [address] Obstetrics and Gynecology 08/02/25 Neelima Raygoza 08/14/25 08/23/25 Neelima Raygoza 08/28/25 08/29/25 Pily Delaney Vehicle And Equipment CleanerAccount Services Representative 07/22/24 Elie Vicky [facility] Psychology 12/29/24 documented as of this encounter
--- OUTSIDE RECORDS SUMMARY | 2025-09-06 18:21 | XMS_ITS | Encounter Summary ---
Author Organization [employer] Address [address] [place] [address] 7 [place] [address] Care Team Providers Care Neurodiagnostic Tech Name Role Phone Celina, Shereen NOLASCO Primary Care Provider [phone] Nupur Bullock PharmD Unavailable Sury Benitez Unavailable [phone] JuliusNirali castellanos OD Unavailable Li Grande MD Unavailable [phone] Anselmo Gates MD Unavailable Margaret Holman Unavailable Herberth Stokes MD Unavailable [phone] Hilton Palacios MD Unavailable Aaron Pringle MD Unavailable [phone] Lori James Unavailable Neelima Raygoza Unavailable Ronda Rodríguez Unavailable Neelima Raygoza Unavailable Neelima Raygoza Unavailable Reason for Visit * Reason Onset Date Comments Nurse Triage 05/25/2024 Encounter Details Date Type Department Care Team (Late st Contact Info) Description 05/25/2024 Telephone [facility] MEDICINE [address] [place] [address] Shereen Latham MD 230 [place] [address] Nurse Triage Social History Tobacco Use Types [...] . Pt reports Pt was seen in [facility] 05/11/24 for continued leftfoot pain and Pt was seen by general internist, Leta Lunsford MD 05/11/24 also (report is on the chart). Pt had been advised to stop BP med chlorthalidone per general internist [facility] because that particular medication is known to [...] anxiety. Pt is advised to come to [facility] today , open till 8pm, [...] Description 09/13/2025 3:15 PM EST Office Visit [facility] [address] [place] [address] Shereen Latham MD [address] [place] [address] 10/02/2025 2:00 PM EST Office Visit [facility] ADULT DENTAL [address] [place] [address] Brandi-ConnorIsa abarca, DDS [address] [place] [address] documented as of this encounter Visit Diagnoses Not on filedocumented in this encounter Additional Health Concerns Assessment Noted Time PHQ-9 Depression Total Score: 22 024 9:12 AM EDT documented as of this encounter Care Teams Neurodiagnostic Tech Relationship Specialty Start Date End Date Shereen Latham MD [address] [place] [address] PCP - General Family Medicine 11/02/18 Nupur Bullock, CharleneD [address] [place] [address] Pharmacist Internal Medicine 08/09/24 05/15/25 Sury Benitez [address] [place] [address] [place] [address] Pulmonary Disease 09/27/24 Nirali Madrid OD [address] [place] [address] Optometry 10/27/24 Li Grande MD [address] [place] [address] Hematology and Oncology 10/27/24 Anselmo Gates MD [address] [facility] [address] [place] [address] Orthopaedic Surgery 10/27/24 Margaret Holman [address] 3rd [place] [address] Cardiology 10/27/24 Herberth Stokes MD 11 [facility] 3rd [place] [address] Gastroenterology 10/27/24 Hilton Palacios MD 15 [facility], [address] [place] [address] Neurology 02/06/25 Aaron Pringle MD 11 [facility] [address] [place] [address] General Surgery 03/07/25 Lori James Registered Nurse 06/15/25 06/15/25 Neelima Raygoza 06/15/25 06/16/25 Ronda Rodríguez [address] [place] [address] [address] [place] [address] Obstetrics and Gynecology 08/02/25 Neelima Raygoza 08/14/25 08/23/25 Neelima Raygoza 08/28/25 08/29/25 iPly Delaney Precision HonerWeather Algorithm Scientist 07/22/24 Elie BRASHER [facility] Psychology 12/29/24 documented as of this encounter
--- OUTSIDE RECORDS SUMMARY | 2025-09-06 18:22 | XMS_ITS | Encounter Summary ---
Author Organization [employer] Address 75 [facility] 7 [place] [address] Care Team Providers Care Occupational Therapy Professor Name Role Phone Shereen Latham MD Primary Care Provider [phone] Nupur Bullock PharmD Unavailable [phone] Sury Benitez Unavailable [phone] Julius, Nirali OD Unavailable Li Grande MD Unavailable [phone] Anselmo Gates MD Unavailable Margaret Holman Unavailable Herberth Stokes MD Unavailable [phone] Hilton Palacios MD Unavailable Aaron Pringle MD Unavailable [phone] Lori James Unavailable Neelima Raygoza Unavailable Ronda Rodríguez Unavailable Neelima Raygoza Unavailable Neelima Raygoza Unavailable Encounter Details Date Type Department Care Team (Late st Contact Info) Description 07/27/[address] [facility] MEDICINE [address] [place] [address] Shereen Latham MD [address] [place] [address] Hypomagnesemia Social History Tobacco Use Types Packs/Day [...] PM EST Office Visit [facility] MEDICINE [address] [place] [address] Shereen Latham MD [address] [place] [address] 10/02/2025 2:00 PM EST Office Visit [facility] ADULT DENTAL [address] [place] [address] Paz-Connor, Isa, DDS [address] [place] [address] documented as of this encounter Visit Diagnoses Diagnosis Hypomagnesemia Disorders of magnesium metabolism documented in this encounter Additional Health Concerns Assessment Noted Time PHQ-9 Depression Total Score: 10 023 10:27 AM EDT documented as of this encounter Care Teams Occupational Therapy Professor Relationship Specialty Start Date End Date Shereen Latham MD [address] [place] [address] PCP - General Family Medicine 11/02/18 Nupur Bullock, CharleneD [address] [place] [address] Pharmacist Internal Medicine 08/09/24 05/15/25 Sury Benitez [address] [place] [address] [address] [place] [address] Pulmonary Disease 09/27/24 Nirali Madrid OD [address] [place] [address] Optometry 10/27/24 Li Grande MD [address] [place] [address] Hematology and Oncology 10/27/24 Anselmo Gates MD 10 [facility] [address] [place] [address] Orthopaedic Surgery 10/27/24 Margaret Holman 11 [facility] 3rd [place] [address] Cardiology 10/27/24 Herberth Stokes MD 11 [facility] 3rd [place] [address] Gastroenterology 10/27/24 Hilton Palacios MD 15 [facility], [address] [place] [address] Neurology 02/06/25 Aaron Pringle MD 11 [facility] [address] [place] [address] General Surgery 03/07/25 Lori James Registered Nurse 06/15/25 06/15/25 Neelima Raygoza 06/15/25 06/16/25 Ronda Rodríguez [address] [place] [address] [address] [place] [address] Obstetrics and Gynecology 08/02/25 Neelima Raygoza 08/14/25 08/23/25 Neelima Raygoza 08/28/25 08/29/25 Pily Dealney General WorkerCommunity Outreach Manager 07/22/24 Elie BRASHER [facility] Psychology 12/29/24 documented as of this encounter
--- OUTSIDE RECORDS SUMMARY | 2025-09-06 18:22 | XMS_ITS | Encounter Summary ---
Author Organization [employer] Address 75 [facility] 7 [place] [address] Care Team Providers Care Oven Operator Name Role Phone Shereen Latham MD Primary Care Provider [phone] Sury Benitez Unavailable [phone] Nirali Madrid OD Unavailable Li Grande MD Unavailable [phone] Anselmo Gates MD Unavailable Margaret Holman Unavailable Herberth Stokes MD Unavailable [phone] Hilton Palacios MD Unavailable Aaron Pringle MD Unavailable [phone] Ronda Rodríguez Unavailable Neelima Raygoza Unavailable Neelima Raygoza Unavailable Reason for Visit * Reason Comments Med Refill Encounter Details Date Type Department Care Team (Late st Contact Info) Description 07/02/2025 Refill [facility] MEDICINE [address] [place], [place] [id number] Shereen Latham MD [address] [place], [place] [phone] Alcohol abuse Social History Tobacco Use Types [...] [facility] [address] [place] [address] Shereen Latham MD 230 [place] [address] 10/02/2025 2:00 PM EST Office Visit [facility] ADULT DENTAL [address] [place] [address] Paz-ConnorIsa, DDS [address] [place] [address] documented as of this encounter Visit Diagnoses Diagnosis Alcohol abuse Nondependent alcohol abuse, unspecified drinking behavior documented in this encounter Additional Health Concerns Assessment Noted Time PHQ-9 Depression Total Score: 21 025 11:03 AM EDT documented as of this encounter Care Teams Oven Operator Relationship Specialty Start Date End Date Shereen Latham MD [address] [place] [address] PCP - General Family Medicine 11/02/18 Sury Benitez [address] [place] [address] Dr [facility] 103 [place] [address] Pulmonary Disease 09/27/24 Nirali Madrid OD 267 [place] [address] Optometry 10/27/24 Li Grande MD 575 [place] [address] Hematology and Oncology 10/27/24 Anselmo Gates MD [address] [place] [address] Orthopaedic Surgery 10/27/24 Margaret Holman [address] 3rd [place] [address] Cardiology 10/27/24 Herberth Stokes MD [address] [facility] [address] 3rd [place] [address] Gastroenterology 10/27/24 Hilton Palacios MD [address] [place] [address], [address] [place] [address] Neurology 02/06/25 Aaron Pringle MD [address] [facility] [address] 3rd [place] [address] General Surgery 03/07/25 Ronda Rodríguez [address] [place] [address] [address] [place] [address] Obstetrics and Gynecology 08/02/25 Neelima Raygoza 08/14/25 08/23/25 Neelima Raygoza 08/28/25 08/29/25 Pily Delaney [employer] BevelerKiln Mechanic 07/22/24 Elie BRASHER [facility] Psychology 12/29/24 documented as of this encounter
--- OUTSIDE RECORDS SUMMARY | 2025-09-06 18:22 | XMS_ITS | Encounter Summary ---
Author Organization [employer] Address [address] [place] [address] 7 [place] [address] Care Team Providers Care Cap Coverer Name Role Phone Dana, Shereen NOLASCO Primary Care Provider [phone] Nupur Bullock PharmD Unavailable [phone] Sury Benitez Unavailable [phone] JuliusNirali castellanos OD Unavailable Li Grande MD Unavailable Anselmo Gates MD Unavailable Margaret Holman Unavailable Herberth Stokes MD Unavailable Hilton Palacios MD Unavailable Aaron Pringle MD Unavailable [phone] Lori James Unavailable Neelima Raygoza Unavailable Ronda Rodríguez Unavailable Neelima Raygoza Unavailable Neelima Raygoza Unavailable Reason for Visit * Reason Onset Date Comments Nurse Triage 02/13/2025 Encounter Details Date Type Department Care Team (Late st Contact Info) Description 02/13/2025 Telephone [facility] MEDICINE [address] [place] [address] Shereen Latham MD 230 [place] [address] Nurse Triage Social History Tobacco Use Types [...] Description 09/13/2025 3:15 PM EST Office Visit [facility] MEDICINE [address] [place] [address] Shereen Latham MD [address] [place] [address] [place] [address] 10/02/2025 2:00 PM EST Office Visit [facility] ADULT DENTAL [address] [place] [address] PazJenaa Isa, DDS [address] [place] [address] documented as of this encounter Visit Diagnoses Not on filedocumented in this encounter Additional Health Concerns Assessment Noted Time PHQ-9 Depression Total Score: 22 025 10:17 AM EST documented as of this encounter Care Teams Cap Coverer Relationship Specialty Start Date End Date Shereen Latham MD [address] [place] [address] PCP - General Family Medicine 11/02/18 Nupur Bullock, CharleneD 230 [place] [address] Pharmacist Internal Medicine 08/09/24 05/15/25 Sury Benitez [address] [place] [address] Dr [facility] 103 [place] [address] Pulmonary Disease 09/27/24 Nirali Madrid OD 267 [place] [address] Optometry 10/27/24 Li Grande MD [address] [place] [address] Hematology and Oncology 10/27/24 Anselmo Gates MD [address] [facility] [address] [place] [address] Orthopaedic Surgery 10/27/24 Margaret Holman [address] 3rd [place] [address] Cardiology 10/27/24 Herberth Stokes MD [address] [facility] [address] 3rd [place] [address] Gastroenterology 10/27/24 Hilton Palacios MD [address] [place] [address], [address] [place] [address] Neurology 02/06/25 Aaron Pringle MD [address] [place] [address] 3rd [place] [address] General Surgery 03/07/25 Lori James Registered Nurse 06/15/25 06/15/25 Neelima Raygoza 06/15/25 06/16/25 Ronda Rodríguez [address] [place] [address] [address] [place] [address] Obstetrics and Gynecology 08/02/25 Neelima Raygoza 08/14/25 08/23/25 Neelima Raygoza 08/28/25 08/29/25 Pily Delaney Charge Entry ClerkRetail Chain Store Area Supervisor 07/22/24 Elie Vicky [facility] Psychology 12/29/24 documented as of this encounter
--- OUTSIDE RECORDS SUMMARY | 2025-09-06 18:22 | XMS_ITS | Encounter Summary ---
Author Organization [employer] Address 75 [facility] 7t [place] [address] Care Team Providers Care Supplemental Nurse Name Role Phone Crowder, Shereen NOLASCO Primary Care Provider [phone] Nupur Bullock PharmD Unavailable [phone] Sury Benitez Unavailable [phone] JuliusNirali castellanos OD Unavailable Li Grande MD Unavailable [phone] Anselmo Gates MD Unavailable Margaret Holman Unavailable Herberth Stokes MD Unavailable [phone] Hilton Palacios MD Unavailable Aaron Pringle MD Unavailable [phone] Lori James Unavailable Neelima Raygoza Unavailable Ronda Rodríguez Unavailable Neelima Raygoza Unavailable Neelima Raygoza Unavailable Encounter Details Date Type Department Care Team (Latest Contact Info) Description 07/06/2019 Abstract [facility] CONVERSIONS Dental, Provider, DDS Social [...] Description 09/13/2025 3:15 PM EST Office Visit [facility] MEDICINE [address] [place] [address] Shereen Latham MD [address] [place] [address] 10/02/2025 2:00 PM EST Office Visit [facility] ADULT DENTAL [address] [place] [address] Isa De La Rosa, DDS [address] [place] [address] documented as of this encounter Visit Diagnoses Not on filedocumented in this encounter Care Teams Supplemental Nurse Relationship Specialty Start Date End Date Shereen Latham MD [address] [place] [address] PCP - General Family Medicine 11/02/18 Nupur Bullock PharmD [address] [place] [address] Pharmacist Internal Medicine 08/09/24 05/15/25 Sury Benitez [address] [place] [address] Pulmonary Disease 09/27/24 Nirali Madrid OD [address] [place] [address] Optometry 10/27/24 Li Grande MD 201 [place] [address] Hematology and Oncology 10/27/24 Anselmo Gates MD [address] [facility] [address] [place] [address] Orthopaedic Surgery 10/27/[address] [facility] 3rd [place] [address] Cardiology 10/27/24 Herberth Stokes MD 11 [facility] 3rd [place] [address] Gastroenterology 10/27/24 Hilton Palacios MD 15 [facility], [address] [place] [address] Neurology 02/06/25 Aaron Pringle MD 11 [facility] 3rd [place] [address] General Surgery 03/07/25 Lori James Registered Nurse 06/15/25 06/15/25 Neelima Raygoza 06/15/25 06/16/25 Ronda Rodríguez [address] [place] [address] 215 [place] [address] Obstetrics and Gynecology 08/02/25 Neelima Raygoza 08/14/25 08/23/25 Neelima Raygoza 08/28/25 08/29/25 Pily Delaney Mixer Foam RubberStamp Pad Maker 07/22/24 Elie Vicky [facility] Psychology 12/29/24 documented as of this encounter
--- OUTSIDE RECORDS SUMMARY | 2025-09-06 18:22 | XMS_ITS | Encounter Summary ---
Author Organization [employer] Address [address] [place] [address] 7 [place] [address] Care Team Providers Care Crude Oil Treater Name Role Phone [place], Shereen NOLASCO Primary Care Provider [phone] Nupur Bullock PharmD Unavailable Sury Benitez Unavailable [phone] JuliusNirali castellanos OD Unavailable Li Grande MD Unavailable [phone] Anselmo Gates MD Unavailable Margaret Holman Unavailable Herberth Stokes MD Unavailable [phone] Hilton Palacios MD Unavailable Aaron Pringle MD Unavailable [phone] Lori James Unavailable Neelima Raygoza Unavailable Ronda Rodríguez Unavailable Neelima Raygoza Unavailable Neelima Raygoza Unavailable Reason for Visit * Reason Onset Date Comments Medication Question 07/05/2024 Encounter Details Date Type Department Care Team ([facility] st Contact Info) Description 07/05/2024 Telephone [facility] MEDICINE 230 [place] [address] Shereen Latham MD [address] [place] [address] Medication Question Social History Tobacco Use Types [...] is no medication interaction. Contact pt at [phone] documented in this encounter Plan of Treatment Upcoming Encounters Date Type Department Care Team (Late st Contact Info) Description 09/13/2025 3:15 PM EST Office Visit [facility] MEDICINE [address] [place] [address] Shereen Latham MD [address] [place] [address] 10/02/2025 2:00 PM EST Office Visit [facility] ADULT DENTAL 230 [place] [address] Isa De La Rosa DDS 230 [place] [address] documented as of this encounter Visit Diagnoses Diagnosis Pain Generalized pain documented in this encounter Additional Health Concerns Assessment Noted Time PHQ-9 Depression Total Score: 13 024 4:53 PM EDT documented as of this encounter Care Teams Crude Oil Treater Relationship Specialty Start Date End Date Shereen Latham MD [address] [place] [address] PCP - General Family Medicine 11/02/18 Nupur Bullock, CharleneD 230 [place] [address] Pharmacist Internal Medicine 08/09/24 05/15/25 Sury Benitez [address] [place] [address] [address] [place] [address] Pulmonary Disease 09/27/24 Nirali Madrid OD [address] [place] [address] Optometry 10/27/24 Li Grande MD [address] [place] [address] Hematology and Oncology 10/27/24 Anselmo Gates MD 10 [facility] 203 [place] [address] Orthopaedic Surgery 10/27/24 Margaret Holman 11 [facility] 3rd [place] [address] Cardiology 10/27/24 Herberth Stokes MD 11 [facility] 3rd [place] [address] Gastroenterology 10/27/24 Hilton Palacios MD [address] [place] [address], [address] [place] [address] Neurology 02/06/25 Aaron Pringle MD 11 [facility] 3rd [place] [address] General Surgery 03/07/25 Lori James Registered Nurse 06/15/25 06/15/25 Neelima Raygoza 06/15/25 06/16/25 Ronda Rodríguez [address] [place] [address] Obstetrics and Gynecology 08/02/25 Neelima Raygoza 08/14/25 08/23/25 Neelima Raygoza 08/28/25 08/29/25 Pily Delaney Vice President ComplianceHealth Data Analyst 07/22/24 Elie BRASHER [facility] Psychology 12/29/24 documented as of this encounter
--- OUTSIDE RECORDS SUMMARY | 2025-09-06 18:22 | XMS_ITS | Encounter Summary ---
Author Organization [employer] Address 75 [facility] 7t [place] [address] Care Team Providers Care Department Specialist Name Role Phone [place], Shereen NOLASCO Primary Care Provider [phone] Nupur Bullock PharmD Unavailable Sury Benitez Unavailable [phone] Julius, Nirali OD Unavailable Li Grande MD Unavailable [phone] Anselmo Gates MD Unavailable Margaret Holman Unavailable Herberth Stokes MD Unavailable [phone] Hilton Palacios MD Unavailable Aaron Pringle MD Unavailable [phone] Lori James Unavailable Neelima Raygoza Unavailable Ronda Rodríguez Unavailable [phone] Neelima Raygoza Unavailable Star Raygozada Unavailable Reason for Visit * Reason Comments Med Refill Encounter Details Date Type Department Care Team ([facility] st Contact Info) Description 06/21/2024 Refill [facility] MED & PEDS [address] [place] [address] Shereen Latham MD 230 [place] [address] Mild intermittent asthma, unspecified whether complicated; Pain [...] Description 09/13/2025 3:15 PM EST Office Visit [facility] MEDICINE [address] [place] [address] Shereen Latham MD [address] [place] [address] 10/02/2025 2:00 PM EST Office Visit [facility] ADULT DENTAL 230 [place] [address] Paz-Connor, Isa, DDS [address] [place] [address] documented as of this encounter Visit Diagnoses Diagnosis Mild intermittent asthma, unspecified whether complicated Pain Generalized pain documented in this encounter Additional Health Concerns Assessment Noted Time PHQ-9 Depression Total Score: 13 024 4:53 PM EDT documented as of this encounter Care Teams Department Specialist Relationship Specialty Start Date End Date Shereen Latham MD [address] [place] [address] PCP - General Family Medicine 11/02/18 Nupur Bullock, CharleneD [address] [place] [address] Pharmacist Internal Medicine 08/09/24 05/15/25 Sury Benitez [address] [place] [address] Dr [place] [address] [place] [address] Pulmonary Disease 09/27/24 Nirali Madrid OD 267 [place] [address] Optometry 10/27/24 Li Grande MD [address] [place] [address] Hematology and Oncology 10/27/24 Anselmo Gates MD [address] [place] [address] Orthopaedic Surgery 10/27/24 Margaret Holman [address] 3rd [place] [address] Cardiology 10/27/24 Herberth Stokes MD 11 [facility] 3rd [place] [address] Gastroenterology 10/27/24 Hilton Palacios MD 15 [facility], [address] [place] [address] Neurology 02/06/25 Aaron Pringle MD 11 [facility] 3rd [place] [address] General Surgery 03/07/25 Lori James Registered Nurse 06/15/25 06/15/25 Neelima Raygoza 06/15/25 06/16/25 Ronda Rodríguez [address] [place] [address] [address] [place] [address] Obstetrics and Gynecology 08/02/25 Neelima Raygoza 08/14/25 08/23/25 Neelima Raygoza 08/28/25 08/29/25 Pily Delaney Operation Shift SupervisorTerrazzo Laborer 07/22/[address] [facility] Psychology 12/29/24 documented as of this encounter
--- OUTSIDE RECORDS SUMMARY | 2025-09-06 18:22 | XMS_ITS | Encounter Summary ---
Author Organization [employer] Address [address] [place] [address] 7 [place] [address] Care Team Providers Care Wafer Fab Operator Name Role Phone [place], Shereen NOLASCO Primary Care Provider [phone] Nupur Bullock PharmD Unavailable Sury Benitez Unavailable [phone] JuliusNirali castellanos OD Unavailable Li Grande MD Unavailable [phone] Anselmo Gates MD Unavailable Margaret Holman Unavailable Herberth Stokes MD Unavailable [phone] Hilton Palacios MD Unavailable [phone] Aaron Pringle MD Unavailable [phone] Lori James Unavailable Neelima Raygoza Unavailable Ronda Rodríguez Unavailable Neelima Raygoza Unavailable Neelima Raygoza Unavailable Reason for Visit * Reason Onset Date Comments Nurse Triage 01/25/2024 Referral 01/25/2024 Encounter Details Date Type Department Care Team (Late st Contact Info) Description 01/25/2024 Telephone [facility] [address] [place] [address] Shereen Latham MD [address] [place] [address] Nurse Triage; Referral Social History Tobacco Use [...] vary. Pt wants to be referred to [address] [address] [facility] will send to team to review [...] EST Office Visit [facility] [address] [place] [address] Shereen Latham MD [address] [place] [address] 10/02/2025 2:00 PM EST Office Visit [facility] [address] [place] [id number] Isa De La Rosa DDS [address] [place] [id number] documented as of this encounter Visit Diagnoses Not on filedocumented in this encounter Additional Health Concerns Assessment Noted Time PHQ-9 Depression Total Score: 21 023 10:42 AM EST documented as of this encounter Care Teams Wafer Fab Operator Relationship Specialty Start Date End Date Shereen Latham MD [address] [place] [id number] PCP - General Family Medicine 11/02/18 Nupur Bullock, CharleneD [address] [place] [id number] Pharmacist Internal Medicine 08/09/24 05/15/25 Sury Benitez [address] [place] [address] [place] [address] [place] [address] Pulmonary Disease 09/27/24 Nirali Madrid OD [address] [place] [phone] Optometry 10/27/24 Li Grande MD [address] [place] [address] Hematology and Oncology 10/27/24 Anselmo Gatse MD [address] [place] [address] Orthopaedic Surgery 10/27/24 Margaret Holman [address] [place] [address] Cardiology 10/27/24 Herberth Stokes MD [address] [place] [address] Gastroenterology 10/27/24 Hilton Palacios MD [address] [facility], [address] [place] [address] Neurology 02/06/25 Aaron Pringle MD [address] [facility] [address] [place] [address] General Surgery 03/07/25 Lori James Registered Nurse 06/15/25 06/15/25 eNelima Raygoza 06/15/25 06/16/25 Ronda Rodríguez [address] [place] [address] [address] [place] [address] Obstetrics and Gynecology 08/02/25 Neelima Raygoza 08/14/25 08/23/25 Neelima Raygoza 08/28/25 08/29/25 Pily Delaney [employer]enderCl[employer] Coordinator 07/22/24 Elie Vicky [facility] Psychology 12/29/24 documented as of this encounter
--- OUTSIDE RECORDS SUMMARY | 2025-09-06 18:22 | XMS_ITS | Clinical Summary ---
Author Organization [employer] Address [address] [facility] 7 [place] [address] Care Team Providers Care Latex Foam Worker Name Role Phone Dane, Shereen NOLASCO Primary Care Provider [phone] Sury Benitez Unavailable [phone] Nirali Madrid OD Unavailable Li Grande MD Unavailable [phone] Anselmo Gates MD Unavailable Margaret Holman Unavailable Herberth Stokes MD Unavailable [phone] Hilton Palacios MD Unavailable Aaron Pringle MD Unavailable [phone] Ronda Rodríguez Unavailable Allergies Active Allergy [...] instructed 1 each 2 02/12/20 24 Active Ventolin HFA 108 (90 Base) [...] tablet 3 01/13/20 25 Active sodium chloride (Preble) 0.65 % nasal sprayIndication s:Nasal congestion Administer [...] (bullock pain). 50 g 07/20/20 25 Active clonazePAM (KlonoPIN) 0.5 MG tablet [...] NEEDED FOR PAIN OR FEVER 60 tablet 09/06/20 25 Active lidocaine (Lidoderm) 5 % patchIndication s:Chronic pain of both knees APPLY 1 PATCH TOPICALLY TO SKIN, LEAVE ON FOR 12 HOURS AND OFF FOR 12 HOURS DIRECTED 30 patch 3 09/06/20 25 Active lidocaine (Lidoderm) 5 % patchIndication s:Chronic pain of both knees APPLY 1 PATCH TOPICALLY TO SKIN, LEAVE ON FOR 12 HOURS AND OFF FOR 12 HOURS DIRECTED NEEDED FOR PAIN 30 patch 3 08/27/20 24 025 Discontinued Acetaminophen Extra Strength 500 MG tabletIndicatio ns:Pain TAKE 1 TABLET BY MOUTH EVERY 6 TO 8 HOURS NEEDED FOR PAIN OR FEVER 60 tablet 07/28/20 25 025 Discontinued Active Problems Problem Noted [...] ,ROM preserved but elicit pain See by receiving distribution station operator Lilly Clarke MD in 04/19/2025 for mx [...] -pxed topical diclofenac -pt will call her receiving distribution station operator to schedule f up -has apt already [...] being evaluated for tachycardia and has a phototypesetting equipment monitor in place. I recommended a left [...] being evaluated for tachycardia and has a phototypesetting equipment monitor in place. I recommended a left [...] 03/01/2025 Overview (06/22/2025): -per note from [facility] 02/27/25 EKG last visit showed sinus [...] (06/22/2025 11:51 AM EDT): -per note from [facility] 02/27/25 EKG last visit showed sinus tachycardia, [...] (03/02/2025 11:54 AM EDT): -per note from [facility] 02/27/25 EKG last visit showed sinus tachycardia, [...] 04/21/24 with uric acid 7.9 -Seen by receiving distribution station operator Dr. Bernstein 05/11/24 or evaluation of acute gout affecting left foot. -Pt admitted 07/25/24-07/2524 for swelling, pain, and warmth in the right knee. Patient had a low fever (100.3 F) and elevated WBC (82673 cells/uL), CRP, and ESR. Orthopedic surgery consulted [...] daily for prophylaxis -Seen by Dr. Clarke receiving distribution station operator 04/19/25 Continue allopurinol 200 mg daily, plan to repeat acid level before next visit and increase allopurinol titrate allopurinol if needed to reach serum uric acid level <6 mg/dL(2020 [employer] guideline for the management [...] 04/21/24 with uric acid 7.9 -Seen by receiving distribution station operator Dr. Bernstein 05/11/24 or evaluation of acute gout affecting left foot. -Pt admitted 07/25/24-07/2524 for swelling, pain, and warmth in the right knee. Patient had a low fever (100.3 F) and elevated WBC (40481 cells/uL), CRP, and ESR. Orthopedic surgery consulted [...] daily for prophylaxis -Seen by Dr. Clarke receiving distribution station operator 04/19/25 Continue allopurinol 200 mg daily, plan to repeat acid level before next visit and increase allopurinol titrate allopurinol if needed to reach serum uric acid level <6 mg/dL(2020 [place] guideline for the management [...] 04/21/24 with uric acid 7.9 -Seen by receiving distribution station operator Dr. Bernstein 05/11/24 or evaluation of acute gout affecting left foot. -Pt admitted 07/25/24-07/2524 for swelling, pain, and warmth in the right knee. Patient had a low fever (100.3 F) and elevated WBC (20573 cells/uL), CRP, and ESR. Orthopedic surgery consulted [...] reach serum uric acid level <6 mg/dL(2020 [place] guideline for the management [...] reach serum uric acid level <6 mg/dL(2020 [place] guideline for the management [...] low fever (100.3 F) and elevated WBC (15787 cells/uL), CRP, and ESR. Orthopedic surgery consulted [...] failure with reduced EF during admission to [facility] 06/22/24. - She was started on [...] effusion and indeterminate diastolic function -Seen by [facility] 08/01/24 : exercise nuclear stress [...] again until 07/2024. Last echo 06/23/2024 during [facility] heart failure admission, showed EF 55-60%, small [...] failure with reduced EF during admission to [facility] 06/22/24. - She was started on [...] effusion and indeterminate diastolic function -Seen by [facility] 08/01/24 : exercise nuclear stress [...] again until 07/2024. Last echo 06/23/2024 during [facility] heart failure admission, showed EF 55-60%, small [...] with reduced EF during recent admission to [facility] 06/22/24. Pt was volume overloaded therefore [...] with reduced EF during recent admission to [facility] 06/22/24. Pt was volume overloaded therefore [...] failure with reduced EF during admission to [facility] 06/22/24. - She was started on [...] effusion and indeterminate diastolic function -Seen by [facility] 08/01/24 : exercise nuclear stress [...] failure with reduced EF during admission to [facility] 06/22/24. - She was started on [...] effusion and indeterminate diastolic function -Seen by [facility] 08/01/24 : exercise nuclear stress [...] Complex care coordination 01/11/2024 Overview (01/11/2024): -Has ARCHITECTURE TECHNICIAN services with Chavo Martin is applying [facility] 01/11/2024 -In our complex care management program -referred to [facility] on 01/04/2024 -Messaged sent to [facility] patient [facility] for assistance in care visits Assessment & Plan (06/22/2025 11:51 AM EDT): -Has ARCHITECTURE TECHNICIAN services with Chavo Martin is applying [facility] 01/11/2024 -In our complex care management program -referred to [facility] on 01/04/2024 -Messaged sent to [facility] patient [facility] for assistance in care visits Assessment & Plan (04/26/2025 4:15 PM EDT): -Has ARCHITECTURE TECHNICIAN services with Chavo Martin is applying [facility] 01/11/2024 -In our complex care management program -referred to [facility] on 01/04/2024 -Messaged sent to [facility] patient [facility] for assistance in care visits Assessment & Plan (12/29/2024 10:21 AM EST): -Has ARCHITECTURE TECHNICIAN services with Chavo Martin is applying [facility] 01/11/2024 -In our complex care management program -referred to [facility] on 01/04/2024 -Messaged sent to [facility] patient [facility] for assistance in care visits Assessment & Plan (08/24/2024 9:19 AM EDT): -Has ARCHITECTURE TECHNICIAN services with Chavo Martin is applying [facility] 01/11/2024 -In our complex care management program -referred to [facility] on 01/04/2024 -Messaged sent to [facility] patient [facility] for assistance in care visits Assessment & Plan (06/29/2024 4:06 PM EDT): -Has ARCHITECTURE TECHNICIAN services with Chavo Martin is applying [facility] 01/11/2024 -In our complex care management program -referred to [facility] on 01/04/2024 -Messaged sent to [facility] patient [facility] for assistance in care visits Assessment & Plan (01/11/2024 9:30 AM EDT): -Has ARCHITECTURE TECHNICIAN services with Chavo -She is applying [facility] 01/11/2024 -In our [facility] complex care management program -referred to [facility] on 01/04/2024 -Messaged sent to [facility] patient [facility] for assistance in care visits Generalized anxiety [...] Pain Management team and will reconnect with [facility]. Information given to patient. PLAN: (check all that apply) Behavioral Health Integration Plan Self- referred to [facility]/N per patient's preference. Assessment & Plan (11/24/2023 11:53 AM EST): STEFANY-7 Total Score: 21 (10/22/2023 10:44 AM) New/Additional Services needed Off-site services for , Behavioral Health Integration Plan External OP therapy referral , Patient Self Plan Patient to utilize skills provided in intervention , Patient to reach out to [facility] team as needed, and Patient to engage in OP therapy Provided patient with support in scheduling an Intake appt with N. Anemia 07/29/2023 Overview (06/22/2025): Lab Results Component Value Date FERRITIN 144 03/02/2025 FERRITIN 180 11/08/2024 HGB 11.2 (L) 03/02/2025 HGB 11.4 (L) 12/29/2024 HGB 12.5 07/01/2022 HGB 12.2 01/23/2022 HEMATOCRIT 37.0 07/01/2022 HEMATOCRIT 36.0 01/23/2022 Pt does not want to take iron orally, she wants to go back to hematology for transfusion - Iron infusions ordered by Primary Therapist DR. Grande - She recieved two sessions [...] for transfusion - Iron infusions ordered by Primary Therapist DR. Grande - She recieved two sessions [...] for transfusion - Iron infusions ordered by Primary Therapist DR. Grande - She recieved two sessions [...] for transfusion - Iron infusions ordered by Primary Therapist DR. Grande - She recieved two sessions [...] for transfusion - Iron infusions ordered by Primary Therapist DR. Grande - She recieved two sessions [...] pedro back by: Janett Ortega Person calling: [employer] Date:06/16/24 Time: 1218 Saw CDTM on 08/16/24 [...] value for test(s): MAGS Results called to [employer] back by: Janett Ortega Person calling: [employer] Date:06/16/24 Time: 1218 Assessment & Plan (07/29/2023 4:34 PM EDT): Received magnesium IV in ER -Dose increased to TID - Recheck in 2 weeks Other specified health status 07/20/2023 Overview (06/22/2025): -next physical exam due after 06/22/26 -eye care facilitated by [facility] -dental home is [facility] -health care proxy filed 06/29/24 Assessment & Plan (06/22/2025 11:51 AM EDT): -next physical exam due after 06/22/26 -eye care facilitated by [facility] -dental home is [facility] -health care proxy filed 06/29/24 Assessment & Plan (06/29/2024 4:03 PM EDT): -next physical exam due after 06/29/25 -eye care facilitated by [facility] -dental home is [facility] -health care proxy given and filed [...] spironolactone (Aldactone) 25 MG tablet 11/09/24 -06/20/25 school community relations coordinator held spironolactone Assessment & Plan (06/22/2025 11:51 AM EDT): -Blood pressure is at goal -Continue lifestyle modifications -Continue current medications - Prescribed spironolactone (Aldactone) 25 MG tablet 11/09/24 -06/20/25 school community relations coordinator held spironolactone Assessment & Plan (04/26/2025 4:15 [...] been [facility] for Support and Recovery but has [...] subsequently declined -Admitted for alcohol detox at [facility] 04/09/24 -reports she is currently not [...] been referred to [facility] for Support and Recovery but has [...] subsequently declined -Admitted for alcohol detox at [facility] 04/09/24 -reports she is currently not [...] been referred to [facility] for Support and Recovery but has [...] subsequently declined -Admitted for alcohol detox at [facility] 04/09/24 -reports she is currently not [...] been referred to [facility] for Support and Recovery but has [...] subsequently declined -Admitted for alcohol detox at [facility] 04/09/24 -reports she is currently not [...] phenobarb improved her symptoms, patient declined life management teacher help to place her in rehab, is [...] phenobarb improved her symptoms, patient declined life management teacher help to place her in rehab, is [...] type, invasive tumor 2.2 cm ER positive, MN positive, HER-2/PEREZ negative, two sentinel nodes negative. -S/p RIGHT mastectomy with sentinel node bx by Dr. Prescott [facility] -Adriamycin/Cytoxan based chemotherapy started Oct, [...] being evaluated for tachycardia and has a phototypesetting equipment monitor in place. I recommended a left [...] Dr. Grande and plan for radiation at [facility] Assessment & Plan (06/22/2025 11:51 AM EDT): Adenocarcinoma of the right breast with DCIS grade 3, cribriform type, invasive tumor 2.2 cm ER positive, MN positive, HER-2/PEREZ negative, two sentinel nodes negative. -S/p RIGHT mastectomy with sentinel node bx by Dr. Prescott [facility] -Adriamycin/Cytoxan based chemotherapy started Oct, [...] being evaluated for tachycardia and has a phototypesetting equipment monitor in place. I recommended a left [...] type, invasive tumor 2.2 cm ER positive, MN positive, HER-2/PEREZ negative, two sentinel nodes negative. -S/[facility] Oct, [...] being evaluated for tachycardia and has a phototypesetting equipment monitor in place. I recommended a left [...] type, invasive tumor 2.2 cm ER positive, MN positive, HER-2/PEREZ negative, two sentinel nodes negative. -S/p RIGHT [facility] with [facility] started Oct, [...] type, invasive tumor 2.2 cm ER positive, MN positive, HER-2/PEREZ negative, two sentinel nodes negative. -S/p RIGHT mastectomy with sentinel node bx by Dr. Prescott [facility] -Adriamycin/Cytoxan based chemotherapy started Oct, [...] type, invasive tumor 2.2 cm ER positive, MN positive, HER-2/PEREZ negative, two sentinel nodes negative. -S/p RIGHT mastectomy with sentinel [facility]an based [facility] started Oct, [...] type, invasive tumor 2.2 cm ER positive, MN positive, HER-2/PEREZ negative, two sentinel nodes negative. -S/p RIGHT mastectomy with sentinel node bx by Dr. Prescott [facility] -Adriamycin/Cytoxan based chemotherapy started Oct, [...] type, invasive tumor 2.2 cm ER positive, MN positive, HER-2/PEREZ negative, two sentinel nodes negative. -S/p RIGHT mastectomy with sentinel [facility]an [facility] started Oct, [...] type, invasive tumor 2.2 cm ER positive, MN positive, HER-2/PEREZ negative, two sentinel nodes negative. -S/p RIGHT mastectomy with sentinel node bx by Dr. Prescott [facility] -Adriamycin/Cytoxan based chemotherapy started Oct, [...] type, invasive tumor 2.2 cm ER positive, MN positive, HER-2/PEREZ negative, two sentinel nodes negative. -S/p RIGHT mastectomy with sentinel node bx by Dr. Prescott [facility] -Adriamycin/Cytoxan based chemotherapy started Oct, [...] type, invasive tumor 2.2 cm ER positive, MN positive, HER-2/PEREZ negative, two sentinel nodes negative. -S/p RIGHT mastectomy with sentinel node bx by Dr. Prescott [facility] -Adriamycin/Cytoxan based chemotherapy started Oct, [...] type, invasive tumor 2.2 cm ER positive, MN positive, HER-2/PEREZ negative, two sentinel nodes negative. -S/p RIGHT mastectomy with sentinel [facility]toxan based chemotherapy started Oct, [...] type, invasive tumor 2.2 cm ER positive, MN positive, HER-2/PEREZ negative, two sentinel nodes negative. -S/p RIGHT mastectomy with sentinel [facility]an based chemotherapy started Oct, [...] Overview (06/22/2025): Lab Results Component Value Date [id number] 79.4 05/15/2025 [id number] 58.3 06/16/2024 [id number] 106.4 01/04/2024 Assessment & Plan (04/26/2025 4:15 PM EDT): Lab Results Component Value Date [id number] 58.3 06/16/2024 [id number] 106.4 01/04/2024 [id number] 76.8 09/22/2023 Orders: Vitamin D, 25-Hydroxy, Total, Immunoassay; Future Assessment & Plan (06/29/2024 3:39 PM EDT): Lab Results Component Value Date [id number] 58.3 06/16/2024 [id number] 106.4 01/04/2024 [id number] 76.8 09/22/2023 Assessment & Plan (12/14/2023 12:09 PM EST): Lab Results Component Value Date [id number] 76.8 09/22/2023 -Labs ordered for further evaluation: Vitmain D, 25-hydroxy, Total, Immunoassay. 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 Per Dr. Krish Loomis's note from [facility], pt was due for repeat colposcopy [...] Per Dr. Krish Loomis's note from [facility], pt was due for repeat colposcopy [...] Per Dr. Krish Loomis's note from [facility], pt was due for repeat colposcopy [...] Dr. Krish Loomis's note from [facility] [employer]ABRIC [employer]AY OUT [employer], pt was due for repeat colposcopy in 2011. -Total Vaginal Hysterectomy 08/27/17 ('with MONICA 2 pathology and negative resection margins'). Per note dated 11/27/17 Dr. Reyes; 'patient to discontinue PAP screening'. -Vaginal pap NILM HPV negative 08/2018, per not no further paps indicated Severe episode of recurrent major depressive disorder, without psychotic features ([facility]) 04/19/2014 Overview (12/29/2024): -has therapist in [place] [...] Health Integration Plan Internal Follow up with [facility] Patient Self Plan Patient to utilize skills provided in intervention , Patient to reach out to [facility] team as needed, Patient to reach out to [facility] as needed, and will contact [facility] Intake number to connect with shelter OP services, and psychiatrist. Rule Out Diagnoses: [...] HIV, lyme, CBC, A1c, B12, SPEP, UPEP, OMNTY, sed rate, thiamine and folate. Multiple of [...] as pharmacomtherapy, [facility] smoking cessation group, and [facility] pharmacy smoking cessation clinic Discussed USPSTF [...] as pharmacomtherapy, [facility] smoking cessation group, and [facility] pharmacy smoking cessation clinic Discussed USPSTF [...] as pharmacomtherapy, [facility] smoking cessation group, and [facility] pharmacy smoking cessation clinic Discussed USPSTF [...] as pharmacomtherapy, [facility] smoking cessation group, and [facility] pharmacy smoking cessation clinic Discussed USPSTF [...] as pharmacomtherapy, [facility] smoking cessation group, and [facility] pharmacy smoking cessation clinic Discussed USPSTF [...] as pharmacomtherapy, [facility] smoking cessation group, and [facility] pharmacy smoking cessation clinic Discussed USPSTF [...] bronchitis (CMS/HCC) 04/04/2025 04/26/2025 Environmental allergies 04/04/2025 1011/2024 Pericardial effusion 04/04/2025 08 025 Restrictive ventilatory defect 04/04/2025 06/08/2025 Congestion [...] of breath) 06/29/2024 Overview (12/29/2024): -Followed by [facility] Pulmonology with Sury Benitez NP -02/2024 [...] Plan (12/29/2024 11:03 AM EST): -Followed by [facility] Pulmonology with Sury Benitez NP -02/2024 [...] if needed. -pt reports she saw her ben day artist and is continuing management with them. . Assessment & Plan (07/13/2024 2:15 PM EDT): -referred to pulmonology 06/29/24 -Pt reports she has appt to see ben day artist 08/01/24 Assessment & Plan (06/29/2024 4:49 PM [...] flare 05/11/2024 12/29/2024 Overview (07/13/2024): Seen by receiving distribution station operator Dr. Bernstein 05/11/24 or evaluation of [...] Plan (07/13/2024 2:21 PM EDT): Seen by receiving distribution station operator Dr. Bernstein 05/11/24 or evaluation of [...] 01/11/2024 01/11/2024 Right shoulder pain 10/22/2023 03/30/20 24 Ingrown toenail of both feet 10/22/2023 03/29/2024 [...] EDT): Patient requesting a Physical for her ARCHITECTURE TECHNICIAN hours to be re-instated. On exam [...] on scene within 10 minutes, transfer completed [facility] ER called with expect Hypertension 05/26/2023 12/14/2023 [...] levels with renal panel and magnesium in acquisitions librarian. Assessment & Plan (11/16/2022 10:55 AM EST): Seen by [facility]ology 04/03/2022. Initially seen 12/2021 for hyperaldosteronism. Labs [facility] 10/2021 aldosterone 8, plasma renin 0.11, aldosterone/renin 72.7. She was likely on spironolactone and lisinopril at time of labs. Advise no spironolactone for 6 weeks and recheck renin aldosterone levels with renal panel and magnesium in acquisitions librarian. Generalized pain 09/14/2014 06/08/2025 Anxiety 04/19/2014 01/28/2024 Polysubstance abuse 04/19/2014 04/04/20 25 Encounters Date Type Department Care Team Description 09/06/2025 Orders Only [facility] External Provider, [facility] 09/05/2025 [facility] [address] [address] Shereen Latham MD Hypomagnesemia (Primary Dx) 09/05/2025 Refill [facility] [address] [place] [address] Shereen Latham MD Pain; Chronic pain of both knees 09/01/2025 Patient Outreach [address] [address] Shereen Latham MD Care Coordination ([facility] outreach for SDOH PT-1 and food needs-referral completed /) 09/01/[address] [address] Shereen Latham MD Referral; Lab Orders 09/01/[address] [address] Shereen Latham MD pt1 08/29/2025 Patient Outreach [facility] [address] [place] [address] Shereen Latham MD Care Coordination (Communication to pts assigned CP Coordinator ) 08/28/2025 Patient Outreach [facility] [address] [place] [address] Shereen Latham MD 08/28/2025 Patient Outreach [facility] [address] [place] [address] Shereen Latham MD Care Coordination (CP Care Coordination Chart Review) 08/28/2025 Patient Outreach [facility] [address] [place] [address] Shereen Latham MD Care Coordination ([facility] Ed F/U) 08/28/2025 Patient Outreach [address] [address] Shereen Latham MD 08/25/2025 11:00 AM EDT Office Visit [facility] [address] [address] Mayda Rush MD Prolonged QT syndrome (Primary Dx); Invasive ductal carcinoma of left breast (CMS/HCC) (HCC); Complex care coordination; Palpitations with regular cardiac rhythm; Chronic heart failure with preserved ejection fraction (HFpEF) (HCC); Hypomagnesemia 08/25/2025 Orders Only GENERIC EXTERNAL DATA DEPARTMENT Provider, Generic External Data 08/23/2025 Patient Outreach [facility] [address] [place] [address] Shereen Latham MD Care Coordination (Communication to pts assigned CP Coordinator) 08/15/[address] [address] Shereen Latham MD ER Follow-up 08/15/2025 Patient Outreach [facility] [address] [place] [id number] Shereen Latham MD Care Coordination (CP ED F/U) 08/15/2025 Patient Outreach [facility] [address] [place] [id number] Shereen Latham MD Care Coordination (CP Chart review) 08/15/2025 Telephone [facility] [address] [place] [phone] Isa De La Rosa DDS rs no show appt 08/14/2025 Patient Outreach [address] [address] Shereen Latham MD 07/28/2025 [facility]ill [facility] [facility] [address] [place] [phone] Tari Chance CASINO ATTENDANT Pain 07/27/2025 Orders Only GENERIC EXTERNAL DATA DEPARTMENT Provider, Generic External Data Bilateral malignant neoplasm of breast in female, unspecified estrogen receptor status, unspecified site of breast (CMS/HCC) (Primary Dx) 07/25/[address] [address] Shereen Latham MD Call Back Request 07/20/2025 1:15 PM EDT Office Visit [address] [address] Junie Padron MD Pain in both hands (Primary Dx); Bilateral hand pain 07/20/2025 Results Follow-Up [address] [address] Junie Padron MD C-reactive Protein, Sed Rate by Modified Westergren, Uric acid, XR Hand 3+Views Bilateral 07/20/2025 Travel 07/02/[address] [address] Shereen Latham MD Alcohol abuse 06/28/2025 Orders Only [facility] External Provider, [facility] Bilateral malignant neoplasm of breast in female, unspecified estrogen receptor status, unspecified site of breast (CMS/HCC) (Primary Dx); Abnormal mammogram 06/23/[address] [address] Shereen Latham MD 06/22/2025 11:15 AM EDT Office Visit [address] [address] Shereen Latham MD Trigger finger, unspecified finger, [...] specified health status 06/22/2025 Travel 06/21/[address] [address] Shereen Latham MD chartprep 06/16/2025 10:15 AM EDT Office Visit [address] [address] Naomi De Jesus ANP Right otitis media, unspecified otitis media type (Primary Dx); Heart failure with preserved ejection fraction, unspecified HF chronicity ([facility]); Shortness of breath; Nasal congestion 06/16/2025 Telephone [facility] [address] [place] [phone] Isa De La Rosa, DDS active requested appt 06/16/2025 Patient Outreach [facility] [address] [place] [address] Shereen Latham MD Care Coordination (Communication to PT assigned CP Coordinator) 06/16/2025 Travel 06/15/2025 Telephone [facility] [address] [place] [phone] Shereen Latham MD ER Follow-up 06/15/2025 Patient Outreach [facility] [address] [place] [address] Shereen Latham MD Care Coordination ([facility] ED Follow Up) 06/15/2025 Patient Outreach [facility] [address] [place] [address] Shereen Latham MD Care Coordination (CP Care Coordination Chart Review) 06/15/2025 Patient Outreach [address] [address] Shereen Latham MD 06/15/2025 Patient Outreach [address] [address] Shereen Latham MD 06/14/2025 2:20 PM EDT Office Visit [facility] [address] [place] [phone] Junie Damon MD Shortness of breath; Precordial pain 06/14/2025 Travel 06/14/2025 Orders Only [facility] [address] [place] [phone] Shereen Latham MD Sebaceous cyst of labia (Primary Dx) 06/09/[address] [address] Shereen Latham MD Referral 06/09/2025 Refill [facility] [address] [place] [address] Shereen Latham MD Pain 06/07/2025 6:00 PM EDT Office Visit [facility] [address] [place] [address] Tari Chance NP Cough in adult patient (Primary Dx); Viral illness; Elevated blood pressure reading in office with diagnosis of hypertension 06/07/2025 Travel 06/07/2025 Telephone [facility] [address] [place] [address] Shereen Latham MD Nurse Triage from Last 3 Months Immunizations Immunization Administration [...] Office Visit [facility] [address] [place] [address] Shereen Latham MD [address] [place] [address] 10/02/2025 2:00 PM EST Office Visit [facility] [address] [place], [place] [phone] Isa De La Rosa DDS [address] [place], [place] [phone] Health Maintenance Due Date Last Done Comments [...] Diagnosis Comments CT CHEST WO CONTRAST Routine 09/06/2025 4:28 PM EST ECG 12-LEAD Routine 08/25/2025 3:59 PM EDT [...] 07/27/2025 7:47 AM EDT 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 07/24/2025 Sebaceous cyst of labia XR [...] TOMOSYNTHESIS LEFT Routine 06/01/2025 11:25 AM EDT PROPHYLAXIS - ADULT Routine 03/29/2025 2:00 PM EDT Dental plaque INTRAORAL - COMPLETE [...] Recently Relevant to Health Maintenance Results * CT Chest w/o Contrast (09/06/2025 4:28 PM EST) Anatomical Region Laterality Modality Body, Chest Computed Tomogra phy 09/06/2025 4:28 PM EST Narrative 09/06/2025 5:27 PM EST [address] [address] [address] Scan Report Signed Patient: Azra Cast MR#: [id number] : 1975 Acct:[id number] Age/Sex: 49 / F ADM Date: 09/06/25 Loc: HO.CT Attending Dr: Sury Benitez NP Ordering Physician: Sury Benitez NP Date of Service: 09/06/25 Procedure(s): CT chest wo IV con Accession Number(s): [id number] cc: Shereen Latham MD; Sury Benitez NP Report Number: [id number]: Total DLP = 198.00 mGy-cm Reason for Exam: R91.8 - Other nonspecific abnormal finding of lung field EXAMINATION: CT CHEST WITHOUT IV CONTRAST INDICATION: R91.8 - Other nonspecific abnormal finding of lung field COMPARISON: Previous chest x-ray most recent June [address] most recent October 2024 TECHNIQUE: Helical CT scan of the chest was performed without intravenous contrast. Coronal and sagittal reformatted images were generated and reviewed. This CT exam was performed with one or more of the following dose reduction techniques: automated exposure control, adjustment of the mA and/or kV according to patient size, use of iterative reconstruction technique. DLP: 321 mGy-cm CHEST: THYROID: The thyroid is unremarkable. LUNGS: There is severe right middle lobe atelectasis/almost complete collapse. There is a right middle lobe bronchial wall thickening and cicatrization bronchiectasis. This appears slightly increased from most recent October 2024 exam. Previously seen 4.5 mm right middle lobe nodule adjacent to the major fissure on October 2024 exam is not definitely appreciated on axial imaging. This is stable on sagittal and coronal reconstructed images 68 series 7 and 24 series 6 and unchanged. Other small micronodules are stable, largest a 3 mm peripheral or subpleural right upper lobe nodule adjacent to the mediastinum axial image 71 series 5.. No new or increasing pulmonary nodules. Central airways are clear. MEDIASTINUM: There are small mediastinal lymph nodes. No enlarged lymph nodes. DANELLE: Evaluation of the hilar regions is limited by lack of intravenous contrast material. CARDIOVASCULATURE: The heart is normal in size. There is a small pericardial effusion. This is slightly increased from October 2024 exam. The thoracic aorta is normal in caliber. DEGREE OF CORONARY CALCIFICATION: mild PLEURA: There is no pleural effusion. No pneumothorax. MAIN AIRWAYS: The mainstem bronchi and proximal branches are patent. AXILLA: Surgical changes following right mastectomy, implant similar and surgical clips in the right axilla to previous exam New postsurgical changes to the left breast. New clip in the lower outer quadrant of the left breast, 0.8 x 3.4 cm density, surrounding fat stranding and skin thickening, question posttreatment changes. No axillary internal mammary or supraclavicular adenopathy. BONES AND SOFT TISSUES: Degenerative changes of the spine. Small sclerotic density in the right T6 vertebral body unchanged. UPPER ABDOMEN: The visualized portions of the liver, spleen, and adrenals have an unremarkable unenhanced appearance. CT/CT chest wo IV con IMPRESSION: Slight interval increase in now near complete right middle lobe atelectasis. There is right middle lobe bronchial wall thickening and cicatrization bronchiectasis similar to previous exam. Stable pulmonary nodules, largest measuring 5 mm in the right middle lobe. No new or increasing pulmonary nodule. Small pericardial effusion slightly increased in size from previous exam. New postsurgical changes to the left breast. Electronically signed by: Chandrika Garg MD 09/06/2025 05:23 PM [facility] Dictated By: Chandrika Garg MD Signed By: <Electronically signed by Chandrika Garg MD in OV> 09/06/25 1723 DD/ 1628 TD/TT: 09/06/25 1640 Assistant Editor: CAROLINE Procedure Note Donotuseinterpreter, Image - 09/06/[address] [place] [address] [address] Scan Report Signed Patient: Maged Cast#: [id number] : 1975Acct:[id number] Age/Sex: 49 / FADM Date: 09/06/25 Loc: HO.CT Attending Dr: Sury Benitez NP Ordering Physician: Sury Benitez NP Date of Service: 09/06/25 Procedure(s): CT chest wo IV con Accession Number(s): [id number] cc: Shereen Latham MD; Sury Benitez NP Report Number: [id number]: Total DLP = 198.00 mGy-cm Reason for Exam: R91.8 - Other nonspecific abnormal finding of lung field EXAMINATION: CT CHEST WITHOUT IV CONTRAST INDICATION: R91.8 - Other nonspecific abnormal finding of lung field COMPARISON: Previous chest x-ray most recent June [address] most recent October 2024 TECHNIQUE: Helical CT scan of the chest was performed without intravenous contrast. Coronal and sagittal reformatted images were generated and reviewed. This CT exam was performed with one or more of the following dose reduction techniques: automated exposure control, adjustment of the mA and/or kV according to patient size, use of iterative reconstruction technique. DLP: 321 mGy-cm CHEST: THYROID: The thyroid is unremarkable. LUNGS: There is severe right middle lobe atelectasis/almost complete collapse. There is a right middle lobe bronchial wall thickening and cicatrization bronchiectasis. This appears slightly increased from most recent October 2024 exam. Previously seen 4.5 mm right middle lobe nodule adjacent to the major fissure on October 2024 exam is not definitely appreciated on axial imaging. This is stable on sagittal and coronal reconstructed images 68 series 7 and 24 series 6 and unchanged. Other small micronodules are stable, largest a 3 mm peripheral or subpleural right upper lobe nodule adjacent to the mediastinum axial image 71 series 5.. No new or increasing pulmonary nodules. Central airways are clear. MEDIASTINUM: There are small mediastinal lymph nodes. No enlarged lymph nodes. DANELLE: Evaluation of the hilar regions is limited by lack of intravenous contrast material. CARDIOVASCULATURE: The heart is normal in size. There is a small pericardial effusion. This is slightly increased from October 2024 exam. The thoracic aorta is normal in caliber. DEGREE OF CORONARY CALCIFICATION: mild PLEURA: There is no pleural effusion. No pneumothorax. MAIN AIRWAYS: The mainstem bronchi and proximal branches are patent. AXILLA: Surgical changes following right mastectomy, implant similar and surgical clips in the right axilla to previous exam New postsurgical changes to the left breast. New clip in the lower outer quadrant of the left breast, 0.8 x 3.4 cm density, surrounding fat stranding and skin thickening, question posttreatment changes. No axillary internal mammary or supraclavicular adenopathy. BONES AND SOFT TISSUES: Degenerative changes of the spine. Small sclerotic density in the right T6 vertebral body unchanged. UPPER ABDOMEN: The visualized portions of the liver, spleen, and adrenals have an unremarkable unenhanced appearance. CT/CT chest wo IV con IMPRESSION: Slight interval increase in now near complete right middle lobe atelectasis. There is right middle lobe bronchial wall thickening and cicatrization bronchiectasis similar to previous exam. Stable pulmonary nodules, largest measuring 5 mm in the right middle lobe. No new or increasing pulmonary nodule. Small pericardial effusion slightly increased in size from previous exam. New postsurgical changes to the left breast. Electronically signed by: Chandrika Garg MD 09/06/2025 05:23 PM EST RP Dictated By: Cahndrika Garg MD Signed By: <Electronically signed by Chandrika Garg MD in OV> 09/06/25 1723 DD/ 1628 TD/TT: 09/06/25 1640 Assistant Editor: CAROLINE [facility] External Provider IMG CT PROCEDURES Final Result * ECG 12 lead (08/25/2025 3:59 PM EDT) Only the most recent of2 resultswithin the time period is included. Narrative Mayda Rush MD - 08/25/2025 3:59 PM EDT Qtc 526, VR 98, minimal high-lateral repolarization Mayda Rush MD ECG ORDERABLES Final Result * CT Head w/o Contrast (08/25/2025 3:28 PM EDT) Anatomical Region Laterality Modality Head, Neck Computed Tomogra phy 08/25/2025 3:28 PM EDT Narrative 08/25/2025 3:53 PM EDT [address] [address] [address] Scan Report Signed Patient: Azra Cast MR#: [id number] : 1975 Acct:[id number] Age/Sex: 49 / F ADM Date: 08/25/25 Loc: .ED Attending Dr: Ordering Physician: Leighann Ordonez DO Date of Service: 08/25/25 Procedure(s): CT head/brain wo IV con Accession Number(s): [id number] cc: Shereen Latham MD; Mery,Mel Report Number: [id number]: Total DLP = 712.00 mGy-cm Reason for [...] 08/25/25 1550 DD/ 1528 TD/TT: 08/25/25 1538 Assistant Editor: CAROLINE Procedure Note Donotuseinterpreter, Image - 08/25/[address] [address] [address] Scan Report Signed Patient: Maged Cast#: [id number] : 1975Acct:[id number] Age/Sex: 49 / FADM Date: 08/25/25 Loc: HO.ED Attending Dr: Ordering Physician: Leighann Ordonez DO Date of Service: 08/25/25 Procedure(s): CT head/brain wo IV con Accession Number(s): [id number] cc: Shereen Latham MD; Leighann Ordonez DO Report Number: [id number]: Total DLP = 712.00 mGy-cm Reason for [...] 08/25/25 1550 DD/ 1528 TD/TT: 08/25/25 1538 Assistant Editor: CAROLINE [facility] External Provider IMG CT PROCEDURES Final Result * High Sensitivity Troponin I (08/25/2025 12:45 PM EDT) Only the most recent of2 resultswithin the time period is included. [facility] TROPONIN I HIGH SENSITIVITY 12.2 <3.5 - 17.0 ng/L [facility] Comment:The [place] high sens itivity Troponin-I results should beused in conjunction with other diagnostic information suchas ECG, clinical observations and information, and patientsymptoms to aid in the diagnosis of [place]. 08/25/2025 12:4 5 PM EDT 08/25/2025 12:52 PM EDT Generic External Data Provider LAB BLOOD ORDERAB LES Final Result Performing Organization Address [facility] Co de Phone Number [facility] [address] [place] [phone] * Ethanol (08/25/2025 12:45 PM EDT) [facility] ETHANOL (MG/DL) IN SER/PLAS 11 mg/dL [facility] Comment:Serum/plasma ethanol results are to be used formedical/treatment purposes only. 08/25/2025 12:4 5 PM EDT 08/25/2025 12:52 PM EDT Generic External Data Provider LAB BLOOD ORDERAB LES Final Result Performing Organization Address [facility] de Phone Number [facility] [address] [place] [phone] * TSH with Reflex to Free T4 (08/25/2025 12:45 PM EDT) [facility] TSH reflex Free T4 0.94 0.32 - 4.0 uIU/mL [facility] 08/25/2025 12:4 5 PM EDT 08/25/2025 12:52 PM EDT Generic External Data Provider LAB BLOOD ORDERAB LES Final Result Performing Organization Address [facility] Co de Phone Number [facility] [address] [place] [phone] * (ABNORMAL) CBC auto differential (08/25/2025 12:45 PM EDT) White Blood Count 9.9 4.8 - 10.8 X10*3/uL [facility] Red Blood Count 4.12(L) 4.20 - 5.50 X10*6/uL [facility] Hemoglobin 11.6(L) 12.0 - 16.0 g/dl [facility] Hematocrit 35.5(L) 37.0 - 47.0 % [facility] Mean Corpuscular Volume 86.2 80.0 - 98.0 fL [facility] Mean Corpuscular Hemoglobin 28.2 27.0 - 33.0 pg [facility] Mean Corpuscular HGB Conc 32.7 31.0 - 35.0 g/dl [facility] Red Cell Distribution Width 14.3 11.0 - 16.0 % [facility] Platelet Count 304 160 - 400 X10*3/uL [facility] Mean Platelet Volume 9.9 9.4 - 12.3 fL [facility] Neutrophils Percent Auto 64.4 45 - 73 % [facility] Imm Gran Pct Auto 0.3 0.0 - 0.4 % [facility] Lymphocytes Percent Auto 26.9 20 - 40 % [facility] Monocytes Percent Auto 5.8 2 - 11 % [facility] Eosinophils Percent Auto 2.0 0 - 4 % [facility] Basophils Percent Auto 0.6 0 - 2 % [facility] NRBC Pct Auto 0.0 0.0 - 0.2 /100WBC [facility] Neutrophils Absolute Auto 6.4 2.0 - 8.3 x10*3/uL [facility] Imm Gran Abs Auto 0.03 0.00 - 0.03 X10*3/uL [facility] Lymphocytes Absolute Auto 2.7 1.2 - 4.9 X10*3/uL [facility] Monocytes Absolute Auto 0.6 0.1 - 1.2 X10*3/uL [facility] Eosinophils Absolute Auto 0.2 0.0 - 0.4 X10*3/uL [facility] Basophils Absolute Auto 0.1 0.0 - 0.2 X10*3/uL [facility] NRBC Abs Auto 0.000 0.0 - 0.012 X10*3/uL [facility] 08/25/2025 12:4 5 PM EDT 08/25/2025 12:52 PM EDT Generic External Data Provider LAB BLOOD ORDERAB LES Final Result Performing Organization Address City/[facility]/ZIP Co de Phone Number [facility] [address] [place] [phone] * (ABNORMAL) Magnesium (08/25/2025 12:45 PM EDT) [facility] Magnesium 1.4(LL) 1.6 - 2.6 mg/dL [facility] Comment:Critical value for M AGS: Results called to and read backby: DANIE Person calling: DALLIN Date: 08/25/25 Time:1320 08/25/2025 12:4 5 PM EDT 08/25/2025 12:52 PM EDT Generic External Data Provider LAB BLOOD ORDERAB LES Final Result Performing Organization Address [facility] Co de Phone Number [facility] [address] [place] [phone] * (ABNORMAL) Hepatic Function Panel (08/25/2025 12:45 PM EDT) Bilirubin, Total 0.3 0.0 - 1.0 mg/dL [facility] Bilirubin, Direct 0.1 0.0 - 0.5 mg/dL [facility] Aspartate Amino Transferase 21 5 - 31 U/L [facility] Alanine Aminotransferase 18 0 - 31 U/L [facility] Total Protein 7.1 6.5 - 8.0 g/dL [facility] Albumin Level 4.3 3.5 - 5.0 g/dL [facility] Alkaline Phosphatase 129(H) 39 - 117 U/L [facility] 08/25/2025 12:4 5 PM EDT 08/25/2025 12:52 PM EDT us Generic External Data Provider LAB BLOOD ORDERAB LES Final Result [facility] [address] [place], [place] [phone] * (ABNORMAL) Basic Metabolic Panel (08/25/2025 12:45 PM EDT) Sodium 141 135 - 145 mmol/L [facility] Potassium 3.9 3.3 - 5.1 mmol/L [facility] Chloride 107 96 - 108 mmol/L [facility] Carbon Dioxide 25 22 - 29 mmol/L [facility] Anion Gap 13 12 - 20 [facility] Urea Nitrogen (BUN) 19(H) 9 - 16 mg/dL [facility] Creatinine, Serum 0.89 0.5 - 1.4 mg/dL [facility] Creatinine Clr Calc Pharmacy 85.7 [facility] Comment:Provided height and weight: 170.18 cm,89.176 kg.eGFR (calculated from the MDRD study equation) and eCrCl(calculated from the Cockcroft-Gault equation) are based ondifferent parameters and may not yield comparable results.If eCrCl result is absurd, please check patient'sheight/weight. Estimated Glomerular Filt Rate >60 [facility] Comment:Chronic Kidney Disea se: Estimated GFR < 60 mL/min/1.57r0Yhrvnc Kidney Disease: Estimated GFR < 15 mL/min/1.73m2 Glucose 154(H) 60 - 115 mg/dL [facility] Calcium 9.2 8.4 - 10.2 mg/dL [facility] 08/25/2025 12:4 5 PM EDT 08/25/2025 12:52 PM EDT us Generic External Data Provider LAB BLOOD ORDERAB LES Final Result [facility] [address] [place] [address] [phone] * Hematoxylin and Eosin Stain (07/27/2025 10:31 AM EDT) 07/27/2025 10:3 1 AM EDT 07/27/2025 11:18 AM EDT Narrative [facility] - 07/29/2025 10:20 AM EDT ----- ------- Name: Azra Cast Age/Sex: 49/F : 1975 Unit#: [id number] Attend Dr: Aaron Pringle MD Re07/27/25 [facility] Disch: ----- ------- SPEC : [id number] RECD: 07/27/25-1117 STATUS: CRAIG RERitu NUM: [id number] MAYA: 07/27/25-[address] [facility] [address]: Aaron Pringle MD ENTERED: 07/27/25-114 SP TYPE: Surgical OTHR DR: Shereen Latham MD ORDERED: HE Stain/2, Gross Micro L5/2, Cytokeratin/2, IHC Diagnosis A. Lymph node, sentinel #1, excision: One lymph node with isolated tumor cells (highlighted by leary-cytokeratin) (see comment). B. Additional axillary tissue, excision: Benign adipose tissue; no lymph nodes found. COMMENT: Note is made of the patient's recent breast lumpectomy ([id number]). The final pathologic stage is pT1bN0(i+). Clinical History Pre-Op Dx: Malignant neoplasm of unspecified site Post-Op Dx: Malignant neoplasm of left breast Microscopic Description Microscopic sections reviewed. The immunostain for leary-cytokeratin highlights isolated tumor cells in one sentinel lymph node in part A. Material Received A. [place] node #1 - count 1982 B. Additional axillary tissue Gross Description [...] and 3 pieces in cassette B 5. ([facility]) Special stains ordered and performed: Immunostain for leary-cytokeratin on A1 and A2. CONTINUED ON NEXT PAGE ----- ------- Name: Azra Cast Age/Sex: 49/F : 1975 Unit#: [id number] Attend Dr: Aaron Pringle MD Re07/27/25 [facility] Location[facility] Disch: ----- ------- SPEC : [id number] RECD: 07/27/25 STATUS: CRAIG ANDERSEN NUM: [id number] MAYA: 07/27/[address] [facility] [address]: Aaron Pringle MD ENTERED: 07/27/25 SP TYPE: Surgical OTHR DR: Shereen Latham MD ORDERED: HE Stain/2, Gross Micro L5/2, Cytokeratin/2, IHC IHC S/NG Disclaimer NOTE: Unless otherwise stated, all tissue is formalin-fixed and paraffin-embedded. Some or all of the immunohistochemical tests reported herein may have been developed and their performance characteristics determined by [facility]. They have not been cleared or approved by the U.S. Food and Drug Administration (FDA). However, the FDA has determined that such clearance or approval is not necessary. This laboratory is certified under the Clinical Laboratory Improvement Amendments of 1988 (CLIA) as qualified to perform high complexity clinical laboratory testing. Copies To: Shereen Latham MD [address] [phone] Aaron Pringle MD [facility] [address] [place] [phone] ----- ------- Signed (signature on file) Xiomara Rowan MD 07/29/25 1020 ----- ------- END OF REPORT us Generic External Data Provider LAB BLOOD ORDERAB LES Final Result Performing Organization Address City/State/[facility] Co de Phone Number [facility] [address] [place] [phone] * NM SENTINEL NODE W IMAGING (07/27/2025 7:47 AM EDT) Anatomical Region Laterality Modality Nuclear Medicine 07/27/2025 7:47 AM EDT Narrative 07/27/2025 11:07 AM EDT [address] [address] Nuclear Medicine Report Signed Patient: Azra Cast MR#: [id number] : 1975 Acct:[id number] Age/Sex: 49 / F ADM Date: 07/27/25 Loc: [facility] Attending Dr: Aaron Pringle MD Ordering Physician: Aaron Pringle MD Date of Service: 07/27/25 Procedure(s): NM sentinel node w imaging Accession Number(s): [id number] cc: Shereen Latham MD; Aaron Pringle MD [...] 11:04 AM EDT RP Dictated By: Sharath Sousa MD Signed By: <Electronically signed by Sharath Sousa MD in OV> 07/27/25 1104 DD/ 0747 TD/TT: 07/27/25 0910 Assistant Editor: [facility] Procedure Note Donotuseinterpreter, Image - 07/27/2025 [place] [address] Nuclear Medicine Report Signed Patient: Maged Cast#: [id number] : 1975Acct:[id number] Age/Sex: 49 / FADM Date: 07/27/25 Loc: [facility] Attending Dr: Aaron Pringle MD Ordering Physician: Aaron Pringle MD Date of Service: 07/27/25 Procedure(s): NM sentinel node w imaging Accession Number(s): [id number] cc: Shereen Latham MD; Aaron Pringle MD [...] 07/27/25 1104 DD/ 0747 TD/TT: 07/27/25 0910 Assistant Editor: FARIBA [facility] External Provider IMG NM PROCEDURES Final Result * Referral to Obstetrics / Gynecology (07/24/2025) Shereen Latham MD OUTPATIENT REFERRAL ORDERA BLES Final Result * XR Hand 3+Views Bilateral (07/20/2025 2:25 PM EDT) Anatomical Region Laterality Modality Upper Extremities, Hand Bilateral Radiogra phic Imaging 07/20/2025 2:25 PM EDT Narrative 07/20/2025 2:41 PM EDT [place] [address] XRay Report Signed Patient: Azra Cast MR#: [id number] : 1975 Acct:[id number] Age/Sex: 49 / F ADM Date: 07/20/25 Loc: .[facility] Attending Dr: Shereen Latham MD Ordering Physician: Junie Padron MD Date of Service: 07/20/25 Procedure(s): XR Hand Bilat min 3v Accession Number(s): [id number] cc: Shereen Latham MD; Junie Padron MD [...] OV> 07/20/25 1438 DD/ 1425 TD/TT: 07/20/251426 Assistant Editor: Procedure Note Donotuseinterpreter, Image - 07/20/[address] [address] XRay Report Signed Patient: Maged Cast#: [id number] : 1975Acct:[id number] Age/Sex: 49 / FADM Date: 07/20/25 Loc: [facility] Attending Dr: Shereen Latham MD Ordering Physician: Junie Padron MD Date of Service: 07/20/25 Procedure(s): XR Hand Bilat min 3v Accession Number(s): [id number] cc: Shereen Latham MD; Junie Padron MD [...] OV> 07/20/25 1438 DD/ 1425 TD/TT: 07/20/251426 Assistant Editor: Junie Raygoza MD IMG XR PROCEDURES Final Result * (ABNORMAL) Sed Rate by Modified [place] (07/20/2025 1:55 PM EDT) Erythrocyte Sedimentation Rate 34(H) 0 - 20 MM/HR [facility] Comment:Patients with polycy themia and many hemoglobin abnormalitiesmay have depressed sed rates whereas patients with anemiamay have elevated sed rates. Blood Venous blood specimen / Unknown 07/20/2025 1:55 PM EDT 07/20/2025 4:03 PM EDT us Junie Raygoza MD LAB BLOOD ORDERAB LES Final Result Performing Organization Address City/[facility]/ZIP Co de Phone Number [facility] [address] [place] [phone] * (ABNORMAL) C-reactive Protein (07/20/2025 1:55 PM EDT) C Reactive Protein 2.46(H) < or = 0.50 mg/dL [facility] Blood Venous blood specimen / Unknown 07/20/2025 1:55 PM EDT 07/20/2025 4:46 PM EDT us Junie Raygoza MD LAB BLOOD ORDERAB LES Final Result Performing Organization Address City/[facility]/ZIP Co de Phone Number [facility] [address] [place] [address] [phone] * Uric acid (07/20/2025 1:55 PM EDT) Uric Acid 5.7 2.4 - 5.7 mg/dL [facility] Blood Venous blood specimen / Unknown 07/20/2025 1:55 PM EDT 07/20/2025 4:46 PM EDT us Junie Raygoza MD LAB BLOOD ORDERAB LES Final Result Performing Organization Address City/[facility]/ZIP Co de Phone Number [facility] [address] [place] [phone] * Gross and Microscopic Level 5 (06/28/2025 10:55 AM EDT) 06/28/2025 10:5 5 AM EDT 06/28/2025 11:08 AM EDT [facility] - 07/05/2025 2:23 PM EDT ----- ------- Name: Azra Cast Age/Sex: 49/F : 1975 Unit#: [id number] Attend Dr: Aaron Pringle MD Re06/28/25 [facility] Location: HO.SSS Disch: ----- ------- SPEC : [id number] RECD: 06/28/25-8 STATUS: CRAIG ANDERSEN NUM: [id number] MAYA: 06/28/25-[address] [facility] [address]: Aaron Pringle MD ENTERED: 06/28/25-1110 SP TYPE: Surgical OTHR DR: Shereen Latham MD ORDERED: Gross Micro L5, ER, MN, IOC, IHC, Add. immunos, IHC ER/MN/Her2N/4, Ki-67, p63, SMM, [id number] Diagnosis Breast, left, lumpectomy: - Invasive ductal [...] from posterior Lymph nodes Number examined: 0 [place] nodes: 0 Axillary nodes: 0 CONTINUED ON NEXT PAGE ----- ------- Name: Azra Cast Age/Sex: 49/F : 1975 [id number]#: [id number] Attend Dr: Aaron Pringle MD Re06/28/25 [facility] Location: [facility] Disch: ----- ------- SPEC : [id number] RECD: 06/28/25 STATUS: CRAIG ANDERSEN NUM: [id number] MAYA: 06/28/25-[address]: Aaron Pringle MD ENTERED: 06/28/25-1111 SP TYPE: Surgical OTHR DR: Shereen Latham MD ORDERED: Gross Micro L5, ER, MN, IOC, IHC, Add. immunos, IHC ER/MN/Her2N/4, Ki-67, p63, SMM, [id number] Diagnosis (Continued) Number involved: N/A With macrometastases: N/A With micrometastases: N/A With isolated tumor cells: N/A Extranodal extension: N/A Size of largest met. deposit: N/A Treatment effect Breast: Not identified Lymph nodes: Not identified TNM: pT1b NX Ancillary studies: ER positive, MN positive, HER2 negative (0), low proliferation Clinical [...] Azra Cast Age/Sex: 49/F : 1975 Unit#: [id number] Attend Dr: Aaron Pringle MD Re06/28/25 [facility] Location: HO.SSS Disch: ----- ------- SPEC : [id number] RECD: 06/28/25-1108 STATUS: CRAIG ANDERSEN NUM: [id number] MAYA: 06/28/25-[address] [facility] [address]: Aaron Pringle MD ENTERED: 06/28/25-1111 SP TYPE: Surgical OTHR DR: Shereen Latham MD ORDERED: Gross Micro L5, ER, MN, IOC, IHC, Add. immunos, IHC ER/MN/Her2N/4, Ki-67, p63, SMM, [id number] Gross Description (Continued) fatty parenchyma is otherwise unremarkable without additional discrete abnormality. Stone Fabricator sections to include entire area of ill-defined [...] Envision+ Dual Link System-HRP. Progesterone receptor: Clone [id number]; Office Max Mach 4 detection system. Her-2/perez immunohistochemistry performed in accordance with ASCO/CAP recommendations (2007) and update (2013). Hercep Test Detection system: Polymer type Scoring criteria: For ER/MN and Her-2/perez: All internal (if present) and external controls react appropriately. CONTINUED ON NEXT PAGE ----- ------- Name: Azra Cast Age/Sex: 49/F : 1975 Unit#: [id number] Tay Dr: Aaron Pringle MD Re06/28/25 Status: [facility] Location: [facility] Disch: ----- ------- SPEC : [id number] RECD: 06/28/25-516 STATUS: CRAIG ANDERSEN NUM: [id number] MAYA: 06/28/25-1055 KATHY ALMAZAN: Aaron Pringle MD ENTERED: 06/28/25-1111 SP TYPE: Surgical OTHR DR: Shereen Latham MD ORDERED: Gross Micro L5, ER, MN, IOC, IHC, Add. immunos, IHC ER/MN/Her2N/4, Ki-67, p63, SMM, [id number] Gross Description (Continued) ER and MN immunostains are scored as Positive (> 10% [...] Arch of Pathol Lab Med, 142 2018: 4897-3083. Marce KH, Margot VASQUEZ, et al. Estrogen and Progesterone Receptor Testing in Breast Cancer: ASCO/CAP Guideline Update. Arch of Pathol Lab Med, 1442019: 545-563. Thanh N, Cristel P, et al. Adjuvant abemaciclib combined with endocrine therapy for high- risk early breast cancer: updated efficacy and Ki-67 analysis from the monarchE study. Jennie Oncol. 2020;32(12):4241-3305. This case was reviewed intradepartmentally; results were communicated to Dr. Pringle on 07/05/2025. Special studies ordered and performed: Immunostains for ER, MN, HER2, Ki 67, p63 and smooth muscle myosin IHC S/NG Disclaimer NOTE: Unless otherwise stated, all tissue is formalin-fixed and paraffin-embedded. Some or all of the immunohistochemical tests reported herein may have been developed and their performance characteristics determined by [facility]. They have not been cleared [...] Azra Cast Age/Sex: 49/F : 1975 Unit#: [id number] Attend Dr: Aaron Pringle MD Re06/28/25 [facility] Location: [facility] Disch: ----- ------- SPEC : [id number] RECD: 06/28/25-1107 STATUS: CRAIG ANDERSEN NUM: [id number] MAYA: 06/28/25-[address]: Aaron Pringle MD ENTERED: 06/28/25-1110 SP TYPE: Surgical OTHR DR: Shereen Latham MD ORDERED: Gross Micro L5, ER, MN, IOC, IHC, Add. immunos, IHC ER/MN/Her2N/4, Ki-67, p63, SMM, [id number] Copies To: Shereen Latham MD [address] [phone] Aaron Pringle MD [facility] [address] [place] [phone] ----- ------- Signed (signature on file) Beck Whatley MD 07/05/25 1423 ----- ------- END OF REPORT us Generic External Data Provider LAB BLOOD ORDERAB LES Final Result [facility] [address] [place] [address] [phone] * BI MM SURGICAL SPECIMEN (06/28/2025 10:13 AM EDT) Anatomical Region Laterality Modality Breast Bilateral Mammography 06/28/2025 10:1 3 AM EDT Narrative 06/28/2025 11:09 AM EDT [place] [address] [id number] Mammography Report Signed Patient: Azra Cast MR#: [id number] : 1975 Acct:[id number] Age/Sex: 49 / F ADM Date: 06/28/25 Loc: HO.SSS Attending Dr: Aaron Pringle MD Ordering Physician: Aaron Pringle MD Results: Date of Service: 06/28/25 Follow Up: Procedure(s): MM surgical specimen Accession Number(s): [id number] cc: Shereen Latham MD; Aaron Pringle MD Single left breast specimen radiograph demonstrates a tag with the barbell clip and a second tag with a top hat clip. Electronically signed by: Cara Rodriges DO 06/28/2025 11:07 AM EDT RP Dictated By: Cara Rodriges DO Signed By: <Electronically signed by Cara Rodriges DO in OV> 06/28/25 1107 DD/ 1013 TD/TT: 06/28/25 1104 Assistant Editor: Procedure Note Donotuseinterpreter, Image - 06/28/2025 [place] [address] [id number] Mammography Report Signed Patient: Maged Cast#: [id number] : 1975Acct:[id number] Age/Sex: 49 / FADM Date: 06/28/25 Loc: [facility] Attending Dr: Aaron Pringle MD Ordering Physician: Aaron Pringleesults: Date of Service: 06/28/25Follow Up: Procedure(s): MM surgical specimen Accession Number(s): [id number] cc: Shereen Latham MD; Aaron Pringle MD Single left breast specimen radiograph demonstrates a tag with the barbell clip and a second tag with a top hat clip. Electronically signed by: Cara Rodriges DO 06/28/2025 11:07 AM EDT RP Dictated By: Cara Rodriges DO Signed By: <Electronically signed by Cara Rodriges DO in OV> 06/28/25 1107 DD/ 1013 TD/TT: 06/28/25 1104 Assistant Editor: us [facility] External Provider IMG BI PROCEDURES Edited Result - Final * XR Chest 1 View (06/14/2025 12:37 PM EDT) Anatomical Region Laterality Modality Chest Radiographic Celina ging 06/14/2025 12:3 7 PM EDT Narrative 06/14/2025 1:54 PM EDT [address] [address] XRay Report Signed Patient: Azra Cast MR#: [id number] : 1975 Acct:[id number] Age/Sex: 49 / F ADM Date: 06/14/25 Loc: HO.ED Attending Dr: Ordering Physician: Corrina Badillo PA-C Date of Service: 06/14/25 Procedure(s): XR chest 1V Accession Number(s): [id number] cc: Shereen Latham MD; Corrina Badillo PA-C [...] 06/14/25 1351 DD/ 1237 TD/TT: 06/14/25 1348 Assistant Editor: Procedure Note Donellyinterpreter, Image - 06/14/[address] [address] XRay Report Signed Patient: Nicolas CastR#: [id number] : 1975Acct:[id number] Age/Sex: 49 / FADM Date: 06/14/25 Loc: HO.ED Attending Dr: Ordering Physician: Corrina Badillo PA-C Date of Service: 06/14/25 Procedure(s): XR chest 1V Accession Number(s): [id number] cc: Shereen Latham MD; Corrina Badillo PA-C [...] 06/14/25 1351 DD/ 1237 TD/TT: 06/14/25 1348 Assistant Editor: [facility] External Provider IMG XR PROCEDURES Final Result * POCT Rapid Influenza A ORELLANA ID NOW (06/14/2025 12:00 PM EDT) Only the most recent of2 resultswithin the time period is included. Influenza A Negative Negative, Indeterminate [facility] QC Media Lot # [id number] [facility] Lot# Expiration Date , [facility] Swab 06/14/2025 12:0 0 PM EDT Junie Upton MD POINT OF CARE TEST EN TER/EDIT ORDERABLES Final Result [facility] [address] [place] [phone] * POCT Rapid Influenza B ORELLANA ID NOW (06/14/2025 11:57 AM EDT) Only the most recent of2 resultswithin the time period is included. Influenza B Negative Negative, Indeterminate [facility] QC Media Lot # [id number] [facility] Lot# Expiration Date 1,08,026 [facility] Swab 06/14/2025 11:5 7 AM EDT Junie Upton MD POINT OF CARE TEST EN TER/EDIT ORDERABLES Final Result [facility] [address] [place] [phone] * POCT Rapid Covid-19 BinaxNOW (06/14/2025 11:53 AM EDT) Only the most recent of2 resultswithin the time period is included. Rapid COVID Ag Negative QC Media Lot # [id number] Lot# Expiration Date 82,026 Swab 06/14/2025 11:5 3 AM EDT us Junie Upton MD POINT OF CARE TEST EN TER/EDIT ORDERABLES Final Result * MM RF Tag Device Add (06/14/2025 10:00 AM EDT) Anatomical Region Laterality Modality Breast Left Mammography 06/14/2025 10:0 0 AM EDT Narrative 06/14/2025 11:42 AM EDT [facility] [address] [place] [address] Mammography Report Signed Patient: Azra Cast MR#: [id number] : 1975 Acct:[id number] Age/Sex: 49 / F ADM Date: 06/14/25 Loc: [facility] Attending Dr: Aaron Pringle MD Ordering Physician: Aaron Pringle MD Results: Date of Service: 06/14/25 Follow Up: Procedure(s): MM RF Tag device add Accession Number(s): [id number] cc: Shereen Latham MD; Aaron Pringle MD [...] ANESTHESIA: carbonated lidocaine 1%: . LOCALIZATION SYSTEM: -[employer] LOCallizer Wire-Free Guidance System with 12g needle applicator. -Length: 7 cm. 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 TARGET: Top hat clip. ANESTHESIA: carbonated lidocaine . LOCALIZATION SYSTEM: -[employer] LOCallizer Wire-Free Guidance System with 12g needle applicator. -Length: 7 cm. -RADIOFREQUENCY TAG: ID # [id number] RF Tag ID confirmed with LOCalizer Guidance [...] 06/14/25 1139 DD/ 1000 TD/TT: 06/14/25 1100 Assistant Editor: Procedure Note Donotuseinterpreter, Image - 06/14/2025 [facility] [address] [place] [address] Mammography Report Signed Patient: Maged Cats#: [id number] : 1975Acct:[id number] Age/Sex: 49 / FADM Date: 06/14/25 Loc: HO.MAMMO Attending Dr: Aaron Pringle MD Ordering Physician: Aaron Pringleesults: Date of Service: 06/14/25Follow Up: Procedure(s): MM RF Tag device add Accession Number(s): [id number] cc: Shereen Latham MD; Aaron Pringle MD [...] ANESTHESIA: carbonated lidocaine 1%: . LOCALIZATION SYSTEM: -[employer] LOCallizer Wire-Free Guidance System with 12g needle applicator. -Length: 7 cm. 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 TARGET: Top hat clip. ANESTHESIA: carbonated lidocaine . LOCALIZATION SYSTEM: -[employer] LOCallizer Wire-Free Guidance System with 12g needle applicator. -Length: 7 cm. -RADIOFREQUENCY TAG: ID # [id number] RF Tag ID confirmed with LOCalizer Guidance [...] 06/14/25 1139 DD/ 1000 TD/TT: 06/14/25 1100 Assistant Editor: [facility] External Provider IMG BI PROCEDURES Final Result * MM RF Tag Device Left (06/14/2025 10:00 AM EDT) Anatomical Region Laterality Modality Breast Left Mammography 06/14/2025 10:0 0 AM EDT Narrative 06/14/2025 11:42 AM EDT [address] [place] [address] Mammography Report Signed Patient: Azra Cast MR#: [id number] : 1975 Acct:[id number] Age/Sex: 49 / F ADM Date: 06/14/25 Loc: HO.MAMMO Attending Dr: Aaron Pringle MD Ordering Physician: Aaron Pringle MD Results: Date of Service: 06/14/25 Follow Up: Procedure(s): MM RF Tag device LT Accession Number(s): [id number] cc: Shereen Latham MD; Aaron Pringle MD [...] ANESTHESIA: carbonated lidocaine 1%: . LOCALIZATION SYSTEM: -[employer] LOCallizer Wire-Free Guidance System with 12g needle applicator. -Length: 7 cm. 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 TARGET: Top hat clip. ANESTHESIA: carbonated lidocaine . LOCALIZATION SYSTEM: -[employer] LOCallizer Wire-Free Guidance System with 12g needle applicator. -Length: 7 cm. -RADIOFREQUENCY TAG: ID # [id number] RF Tag ID confirmed with LOCalizer Guidance [...] 06/14/25 1139 DD/ 1000 TD/TT: 06/14/25 1100 Assistant Editor: Procedure Note Donotuseinterpreter, Image - 06/14/2025 [facility] [address] [place] [address] Mammography Report Signed Patient: Maged Cast#: [id number] : 1975Acct:[id number] Age/Sex: 49 / FADM Date: 06/14/25 Loc: MAMMO Attending Dr: Aaron Pringle MD Ordering Physician: Aaron Pringleesults: Date of Service: 06/14/25Follow Up: Procedure(s): MM RF Tag device LT Accession Number(s): [id number] cc: Shereen Latham MD; Aaron Pringle MD [...] ANESTHESIA: carbonated lidocaine 1%: . LOCALIZATION SYSTEM: -[employer] LOCallizer Wire-Free Guidance System with 12g needle applicator. -Length: 7 cm. 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 TARGET: Top hat clip. ANESTHESIA: carbonated lidocaine . LOCALIZATION SYSTEM: -[employer] LOCallizer Wire-Free Guidance System with 12g needle applicator. -Length: 7 cm. -RADIOFREQUENCY TAG: ID # [id number] RF Tag ID confirmed with LOCalizer Guidance [...] 06/14/25 1139 DD/ 1000 TD/TT: 06/14/25 1100 Assistant Editor: us [facility] External Provider IMG BI PROCEDURES Final Result * BI Mammogram Diagnostic Tomosynthesis Left (06/01/2025 11:25 AM EDT) Anatomical Region Laterality Modality Breast Left Mammography 06/01/2025 11:2 5 AM EDT Narrative 06/01/2025 1:24 PM EDT [address] [address] [id number] Mammography Report Signed with Kaylie Patient: Azra Cast MR#: [id number] : 1975 Acct:[id number] Age/Sex: 49 / F ADM Date: 06/01/25 Loc: HO.MRI Attending Dr: Aaron Pringle MD Ordering Physician: Aaron Pringle MD Results: 1Nega tive Date of Service: 06/01/25 Follow Up: 1 Year From Orig ina Mammogram Procedure(s): MM tomosynthesis diagnostic LT Accession Number(s): [id number] cc: Shereen Latham MD; Aaron Pringle MD [...] and with use of Gadavist gadolinium contrast. SpiderOak introducer localization system is used with grid. LESION: Retroareolar region middle depth. LOCAL ANESTHESIA: 6 mL 1% lidocaine; 10 mL 1% lidocaine with epinephrine. NEEDLE: [employer] 9-gauge vacuum assisted core biopsy device. APPROACH: [...] 06/01/25 1321 DD/ 1125 TD/TT: 06/01/25 1150 Assistant Editor: Procedure Note Donotuseinterpreter, Image - 06/07/2025 [place] [address] [id number] Mammography Report Signed with Addenda Patient: Maged Cast#: [id number] : 1975Acct:[id number] Age/Sex: 49 / FADM Date: 06/01/25 Loc: .MRI Attending Dr: Aaron Pringle MD Ordering Physician: Aaron Pringle MDResults: 1Nega tive Date of Service: 06/01/25Follow Up: 1 Year From Orig ina Mammogram Procedure(s): MM tomosynthesis diagnostic LT Accession Number(s): [id number] cc: Shereen Latham MD; Aaron Pringle MD [...] and with use of Gadavist gadolinium contrast. [employer]Oak introducer localization system is used with grid. LESION: Retroareolar region middle depth. LOCAL ANESTHESIA: 6 mL 1% lidocaine; 10 mL 1% lidocaine with epinephrine. NEEDLE: [employer] 9-gauge vacuum assisted core biopsy device. APPROACH: [...] 06/01/2025 01:21 PM EDT RP Dictated By: Tyminski,Cara DO Signed By: <Electronically signed by Cara Rodriges, DO in OV> 06/01/25 1321 DD/ 1125 TD/TT: 06/01/25 1150 Assistant Editor: [facility] External Provider IMG BI PROCEDURES Edited Result - Final * (ABNORMAL) Lipid Panel, Standard (12/29/2024 10:53 AM EST) Triglycerides 192(H) <150 mg/dL [facility] Comment:Desirable Triglyceri de: less than 150 mg/dLBorderline High Triglyceride 150-199 mg/dLHigh Triglyceride: 200-499 mg/dLVery High Triglyceride: greater than or equal to 5OO mg/dL Cholesterol 197 <200 mg/dL [facility] Comment:Desirable Cholestero l: less than 200 mg/dLBorderline High Cholesterol: 200-239 mg/dLHigh Cholesterol: greater than 239 mg/dL LDL Cholesterol Calculated 111(H) <100 mg/dL [facility] Comment:Desirable LDL: less than 100 mg/dLNear Optimal/Above Optimal LDL: 110- 129 mg/dLBorderline High LDL: 130-159 mg/dLHigh LDL: 160-189 mg/dLVery High LDL: greater than or equal to 190 mg/dL HDL Cholesterol 48 >40 mg/dL [facility] Comment:Desirable HDL: great er than 40 mg/dL Note: This HDL assay may give artificially low results in patients with liver disease. Blood Venous blood specimen / Unknown 12/29/2024 10:53 AM EST 12/29/2024 1:06 PM EST Shereen Latham MD LAB BLOOD ORDERABLES Final Result [facility] [address] [place] [phone] * (ABNORMAL) Hm Colonoscopy (07/11/2024) Colonoscopy Abnormal( A) Normal Comment:Herberth Stokes MD tubular adenoma x 3 Herberth Stokes MD HEALTH MAINTENANCE Final Result * Hepatitis Panel, General (06/16/2024 8:22 AM EDT) Hepatitis A IgM Nonreactive Nonreactive [facility] Comment:IgM antibodies to VIRAMONTES V not detected; does not exclude earlyacute or recovered HAV infection. ~Hepatitis B Surface Antibody REACTIVE Nonreactive [facility] Comment:REACTIVE: > 11.99 mI U/mL Hepatitis B Core Antibody Nonreactive Nonreactive [facility] Hepatitis C Antibody Nonreactive Nonreactive [facility] Comment:Antibodies to HCV no t detected; does not exclude early acuteHCV infection. Hepatitis B Surface Ag Negative Negative [facility] Blood Venous blood specimen / Unknown 06/16/2024 8:22 AM EDT 06/16/2024 11:18 AM EDT us Shereen Latham MD LAB BLOOD ORDERABLES Final Result [facility] [address] [place] [phone] * HIV-1/2 Antigen and Antibodies, Fourth Generation, with Reflexes (02/24/2024 8:47 AM EDT) Pathologist [facility] HIV AB/AG Nonreactive Nonreactive [facility] Comment:HIV-1 p24 Ag and/or HIV-1/HIV-2 Ab not detected.A test result that is nonreactive does not exclude thepossibility of exposure to or infection with HIV-1 and/orHIV-2. Nonreactive results in this assay for individualswith prior exposure to HIV-1 and/or HIV-2 may be due toantigen and antibody levels that are below the limit ofdetection of this assay.[facility] [employer] HIV Ag/Ab Combo assay result andsupplemental assay results should be interpreted inconjunction with the patient's clinical presentation,history and other laboratory results. If the results areinconsistent with clinical evidence, additional testing issuggested to confirm the result. Blood Venous blood specimen / Unknown 02/24/2024 8:47 AM EDT 02/24/2024 11:22 AM EDT [facility] LAB BLOOD ORDERABLES Final Resul t [facility] [address] [place] [phone] * (ABNORMAL) Cologuard?? colon cancer screening (08/27/2023 11:24 AM EDT) Cologuard Result Positive( A) Negative 09/05/2023 10:16 PM EDT [facility] (CLIA #:[id number]) Comment: POSITIVE TEST RESULT. A positive Cologuard [...] (Felix Mccoy al, N Engl J Med 2014;370(14):2082-7483.) Cologuard may produce a false negative or false positive result (no colorectal cancer or precancerous polyp present at colonoscopy follow up). A negative Cologuard test result does not guarantee the absence of CRC or advanced adenoma (pre-cancer). The current Cologuard screening interval is every 3 years. ([place] [employer] and U.S. Multi-Society Task Force). Cologuard performance data in a 10,000 patient pivotal study using colonoscopy as the reference method can be accessed at the following location: [email or web address]/results. Additional description of the Cologuard test process, warnings and precautions can be found at [email or web address]. Stool specimen (specimen) 08/27/2023 11:24 AM EDT 08/29/2023 6:48 AM EDT us Shereen Latham MD LAB MOLECULAR DIAGNOSTICS ORDERABLES Final Result [facility] (CLIA #:[id number]) [address] [place] [address], * HPV mRNA E6/E7 (08/12/2018 10:57 AM EDT) HPV mRNA E6/E7 Not Detected NOT DETECTED [facility] Comment: This test was performed using the APTIMA(R) HPV Assay ([employer] This assay detects E6/E7 viral messenger RNA (mRNA) from 14 high-risk HPV types (16,18,31,33,35,39,45,51, 52,56,58,59,66,68). For additional information please refer to: http://education.[employer]/faq/EPP772v4 (This link is being provided for informational/ educational purposes only.) The analytical performance characteristics of this assay have been determined by [employer] [place], [place]. The modifications have not been cleared or approved by the FDA. This assay has been validated pursuant to the CLIA regulations and is used for clinical purposes. Test Performed by Corbin Robles, [employer], [address] [place] [address] Dwaine Morelos M.D., Ph.D., Director of Laboratories , CLIA [id number] Please note: Effective 07/14/2016, HPV testing will be performed using [employer]'s APTIMA test which targets mRNA. Detecting mRNA instead of DNA, as in older methods, offers significant improvements in specificity. 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 Advance Directives and Living Will 07/05/2024 11:59 AM Health Care Proxy Care Teams Latex Foam Worker Relationship Specialty Start Date End Date Noa, MD Shereen [address] [place] [address] PCP - General Family Medicine 11/02/18 Sury Benitez [address] [place] [address] [address] [place] [address] Pulmonary Disease 09/27/24 Nirali Madrid OD [address] [place] [address] Optometry 10/27/24 Li Grande MD [address] [place] [address] Hematology and Oncology 10/27/24 Anselmo Gates MD [address] [place] [address] Orthopaedic Surgery 10/27/24 Margaret Holman [address] [place] [address] Cardiology 10/27/24 Herberth Stokes MD [address] [place] [address] Gastroenterology 10/27/24 Hilton Palacios MD [address], [address] [place] [address] Neurology 02/06/25 Aaron Pringle MD [address] [place] [address] [address] [place] [address] General Surgery 03/07/25 Ronda Rodríguez [address] [place] [address] [address] [place] [address] Obstetrics and Gynecology 08/02/25 Pily Delaney Environmental Health SpecialistHistoric Site Administrator 07/22/24 Elie BRASHER [facility] 12/29/24
--- OUTSIDE RECORDS SUMMARY | 2025-09-06 18:22 | XMS_ITS | Encounter Summary ---
Author Organization [employer] Address [address] [facility] 7 [place] [address] Care Team Providers Care Rn Prior Authorization Name Role Phone [place], Shereen NOLASCO Primary Care Provider [phone] Nupur Bullock PharmD Unavailable Sury Benitez Unavailable [phone] JuliusNirali castellanos OD Unavailable Li Grande MD Unavailable [phone] Anselmo Gates MD Unavailable Margaret Holman Unavailable Herberth Stokes MD Unavailable [phone] Hilton Palacios MD Unavailable Aaron Pringle MD Unavailable [phone] Lori James Unavailable Neelima Raygoza Unavailable Ronda Rodríguez Unavailable [phone] Neelima Raygoza Unavailable Neelima Raygoza Unavailable Reason for Visit * Reason Onset Date Comments ER Follow-up 12/07/2024 Encounter Details Date Type Department Care Team (Late st Contact Info) Description 12/07/2024 Telephone [facility] MEDICINE [address] [place] [address] Shereen Latham MD [address] [place] [address] ER Follow-up Social History Tobacco Use Types [...] TC placed to pt to f/u on [facility] visit on 12/06/2024 for right lower [...] ED visit on : Date: 12/06/24 Hospital: [facility] Seen for: Flu Patient advised will forward to team nurse for follow up documented in this encounter Plan of Treatment Upcoming Encounters Date Type Department Care Team (Late st Contact Info) Description 09/13/2025 3:15 PM EST Office Visit [facility] MEDICINE [address] [place] [address] Shereen Latham MD [address] [place] [address] 10/02/2025 2:00 PM EST Office Visit [facility] ADULT DENTAL [address] [place] [address] Isa De La Rosa DDS [address] [place] [address] documented as of this encounter Visit Diagnoses Not on filedocumented in this encounter Additional Health Concerns Assessment Noted Time PHQ-9 Depression Total Score: 13 024 4:53 PM EDT documented as of this encounter Care Teams Rn Prior Authorization Relationship Specialty Start Date End Date Shereen Latham MD [address] [place] [address] PCP - General Family Medicine 11/02/18 Nupur Bullock, CharleneD [address] [place] [address] Pharmacist Internal Medicine 08/09/24 05/15/25 Sury Benitez [address] [place] [address] [address] [place] [address] Pulmonary Disease 09/27/24 Nirali Madrid OD [address] [place] [address] Optometry 10/27/24 Li Grande MD [address] [place] [address] Hematology and Oncology 10/27/24 Anselmo Gates MD [address] [facility] [address] [place] [address] Orthopaedic Surgery 10/27/24 Margaret Holman [address] [facility] [address] [place] [address] Cardiology 10/27/24 Herberth Stokes MD [address] [facility] [address] [place] [address] Gastroenterology 10/27/24 Hilton Palacios MD [address] [place] [address], [address] [place] [address] Neurology 02/06/25 Aaron Pringle MD [address] [place] [address] [address] [place] [address] General Surgery 03/07/25 Lori James Registered Nurse 06/15/25 06/15/25 Neelima Raygoza 06/15/25 06/16/25 Ronda Rodríguez [address] [place] [address] [address] [place] [address] Obstetrics and Gynecology 08/02/25 Neelima Raygoza 08/14/25 08/23/25 Neelima Raygoza 08/28/25 08/29/25 Pily Delaney State EditorHearing Examiner 07/22/[address] [facility] Psychology 12/29/24 documented as of this encounter
--- OUTSIDE RECORDS SUMMARY | 2025-09-06 18:22 | XMS_ITS | Clinical Summary ---
Author Organization 175 [facility] Address [address] [place] [address] Phone Care Team Providers Care Contract Loader Name Role Phone Shereen Latham MD Primary Care Provider [phone] Allergies Active Allergy Reactions Criticality Noted Date Comments Amoxicillin Hives,Itching High 02/21/2014 Other Reaction(s): itchy, red skin Other reaction(s): itchy, red skin Other Reaction(s): rash, rash/itching Sulfamethoxazole-Trimethop rim 08/13/2025 Hydrocodone Hives,Itching Low 12/13/2018 Hydrocodone-Acetaminophen Rash 08/31/2025 Other Reaction(s): itching and redness of skin Ibuprofen Dizziness 05/23/2024 Other Reaction(s): gives knots in stomach Latex Hives,Itching Low 02/20/2023 Other reaction(s): itching Sulfamethoxazole Rash High 08/09/2015 Trimethoprim Hives,Itching,Rash High 08/09/2015 Medications acetaminophen (TYLENOL) 500 mg tablet TAKE [...] time each day in the morning. 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 I recommended a left breast [...] 04/21/24 with uric acid 7.9 -Seen by material reclaimer Dr. Bernstein 05/11/24 or evaluation of acute gout affecting left foot. -Pt admitted 07/25/24-07/2524 for swelling, pain, and warmth in the right knee. Patient had a low fever (100.3 F) and elevated WBC (35565 cells/uL), CRP, and ESR. Orthopedic surgery consulted [...] to stretch out getting off. -uric acid 2/27/25 5.8, allopurinol increased to 100mg bid -Continue colchicine 0.3 mg Twice daily for prophylaxis -Seen by Dr. Clarke material reclaimer 04/19/25 Continue allopurinol 200 mg daily, plan to repeat acid level before next visit and increase allopurinol titrate allopurinol if needed to reach serum uric acid level <6 mg/dL(2020 [employer] guideline for the management [...] failure with reduced EF during admission to [facility] 06/22/24. - She was started on [...] effusion and indeterminate diastolic function -Seen by [facility] Cardiology 08/01/24 : exercise nuclear stress [...] again until 07/2024. Last echo 06/23/2024 during [facility] heart failure admission, showed EF 55-60%, small [...] for transfusion - Iron infusions ordered by Ap Processor DR. Grande - She recieved two sessions [...] psychological clearance. Stage 3 chronic kidney disease ([facility] V24, [facility] V28) 07/20/2023 Pain in both feet 07/14/2023 [...] had ultrasound sound for abdominal pain at [facility] revealing diffusely echogenic parenchyma with [...] spironolactone (Aldactone) 25 MG tablet 11/09/24 -06/20/25 channel opener held spironolactone Alcohol use disorder, modera te, [...] to [facility] but has [...] subsequently declined -Admitted for alcohol detox at [facility] 04/09/24 -reports she is currently not drinking 08/24/24. Encouraged to continue abstinence. 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 -S/p RIGHT mastectomy with sentinel node bx by Dr. Prescott [facility] -Adriamycin/Cytoxan based chemotherapy started Oct, completed 4 [...] being evaluated for tachycardia and has a labor arbitrator in place. I recommended a left breast [...] Dr. Grande and plan for radiation at [facility] Vitamin D deficiency 12/12/2021 Overview (08/25/2025): Lab Results Component Value Date [id number] 79.4 05/15/2025 [id number] 58.3 06/16/2024 [id number] 106.4 01/04/2024 Atypical glandular cells on cervical Pap smear 1 11/14/2013 Overview (08/25/2025): -Abnormal pap smear January 2011 with 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 Per Dr. Krish Loomis's note from [facility], pt was due for repeat colposcopy in 2011. -Total Vaginal Hysterectomy 08/27/17 ('with MONICA 2 pathology and negative resection margins'). Per note dated 11/27/17 Dr. Reyes; 'patient to discontinue PAP screening'. -Vaginal pap NILM HPV negative 08/2018, per not no further paps indicated Severe episode of recurrent major depressive disorder, with psychotic features ([facility] V24, [facility] V28) 04/19/2014 Overview (08/25/2025): -has therapist in [...] as pharmacomtherapy, [facility] smoking cessation group, and [facility] pharmacy smoking cessation clinic Discussed USPSTF [...] Date Type Department Care Team Description 09/06/2025 Telephone [facility] Hematology Oncology [address] [place] [phone] 08/31/2025 11:56 AM EDT - 08/31/2025 11:59 PM EDT Hospital Encounter [facility] Radiation Oncology [address] [place] [phone] Pal Ureña MD Malignant neoplasm of upper-outer quadrant of left breast in female, estrogen receptor positive ([facility] V24, CMS/HCC V28) (Primary Dx) Discharge Disposition: Home or Self Care 08/31/2025 11:56 AM EDT - 08/31/2025 11:59 PM EDT Hospital Encounter [facility] Radiation Oncology [address] [place] [phone] Discharge Disposition: Home or Self Care 08/24/2025 1:00 PM EDT Consult Orthopedic Surgery - [place] [address] [phone] Antony Garrett, DPWilmar Pain in both feet (Primary Dx); Lumbosacral radiculopathy; Metatarsalgia of left foot; Ingrown right big toenail 08/24/2025 Telephone [facility] Radiation Oncology [address] [place] [phone] 08/13/2025 2:30 PM EDT - 08/13/2025 7:19 PM EDT Emergency [facility] Emergency [address] [place] [phone] Lawrence Han MD Chest pain, unspecified type (Primary Dx); Shortness of breath Discharge Disposition: Left Against Medical Advice 08/10/2025 Telephone [facility] Radiation Oncology [address] [place] [address] Micheline Sosa MA from Last 3 Months Medical History Medical History Date Comments CHF (congestive heart failure) ([facility] V24, [facility] V28) Hypertension Anxiety Depression Social History Tobacco [...] file Not on file Not on file Obstetrics History Para Term AB IAB SAB Ectopic Multiple Livin g Live Births 6 3 Date Outcome GA Total Labor Labor/2nd/3rd Weight Sex Type Anes PTL Emili A1 A5 Name Clin Para Para Para Last Filed Vital Signs Vital Sign Reading Time Taken Comments Blood Pressure 150/98 08/31/2025 12:38 PM EDT Pulse 102 08/31/2025 12:38 PM EDT Temperature 37 C (98.6 F) 08/13/2025 7:19 PM EDT Respiratory Rate 22 08/13/2025 7:19 PM EDT Oxygen Saturation 97% 08/31/2025 12:38 PM EDT Inhaled Oxygen Concentration - - Weight 88.7 kg (195 lb 9.6 oz) 08/31/2025 12:38 PM EDT Height 170.2 cm (5' 7 ) 08/31/2025 12:38 PM EDT Body Mass Index 30.64 08/31/2025 12:38 PM EDT Plan of Treatment Upcoming Encounters Date Type Department Care Team (Late st Contact Info) Description 09/13/2025 12:00 PM EST Appointment [facility] Radiation Oncology [address] [place] [phone] 09/13/2025 1:00 PM EST Appointment [facility] Radiation Oncology [address] [place] [phone] Pal Ureña MD [address] [place] [address] 09/14/2025 3:00 PM EST Procedure visit Orthopedic Surgery - [place] [address] [phone] Antony Garrett, SHARA [address] [phone] Health Maintenance Due Date Last Done Comments [...] Signed Date: 08/13/2025 16:29 ET Workstation ID: [id number] Transcribed By: Self Edit Transcribed Date: 08/13/2025 [...] Signed Date: 08/13/2025 16:29 ET Workstation ID: [id number] Transcribed By: Self Edit Transcribed Date: 08/13/2025 16:27 ET us Lawrence Han MD IMG XR PROCEDURES Final Result * Urinalysis with reflex microscopic (08/13/2025 3:50 PM EDT) Specific [place] Urine 1.017 1.003 - 1.030 LAB URINALYSIS - AUTOMATED METHOD 08/13/2025 4:17 PM [facility] pH, Urine 6.0 5.0 - 8.0 pH LAB URINALYSIS - AUTOMATED METHOD 08/13/2025 4:17 PM [facility] Leukocytes, Urine Negative Negative LAB URINALYSIS - AUTOMATED METHOD 08/13/2025 4:17 PM [facility] Nitrite, Urine Negative Negative LAB URINALYSIS - AUTOMATED METHOD 08/13/2025 4:17 PM [facility] Protein, Urine Negative <=Trace mg/dL LAB URINALYSIS - AUTOMATED METHOD 08/13/2025 4:17 PM [facility] Glucose, Urine Negative Negative mg/dL LAB URINALYSIS - AUTOMATED METHOD 08/13/2025 4:17 PM [facility] Ketones, Urine Negative Negative mg/dL LAB URINALYSIS - AUTOMATED METHOD 08/13/2025 4:17 PM [facility] Urobilinogen, Urine 0.2 0.2 - 1.0 mg/dL LAB URINALYSIS - AUTOMATED METHOD 08/13/2025 4:17 PM [facility] Bilirubin, Urine Negative Negative LAB URINALYSIS - AUTOMATED METHOD 08/13/2025 4:17 PM EDT [facility] Blood, Urine Negative Negative LAB URINALYSIS - AUTOMATED METHOD 08/13/2025 4:17 PM EDT [facility] Urine Urine specimen obtained by clean catch procedure / Unknown Non-blood Collection / Unknown 08/13/2025 3:50 PM EDT 08/13/2025 3:59 PM EDT us Lawrence Han MD LAB URINE ORDERABLES Final Resul t [facility] [address] [place] [address], [place] [phone] * (ABNORMAL) Drug abuse screen 8a panel, urine (08/13/2025 3:50 PM EDT) Amphetamine Screen, Ur Negative Negative LAB CHEMISTRY METHOD 5 4:38 PM EDT [facility] Comment:Certain OTC medicati ons containing ephedrine, phenylephrine, pseudoephedrine and phenylpropanolamine can cause false positive results. Barbiturate Screen, Ur Negative Negative LAB CHEMISTRY METHOD 5 4:38 PM EDT [facility] Benzodiazepine Screen, Ur Negative Negative LAB CHEMISTRY METHOD 5 4:38 PM EDT [facility] Cocaine Screen, Ur Negative Negative LAB CHEMISTRY METHOD 5 4:38 PM EDT [facility] Opiate Screen, Ur Positive(A ) Negative LAB CHEMISTRY METHOD 5 4:38 PM T [facility] Cannabinoid (THC) Screen, Ur Negative Negative LAB CHEMISTRY METHOD 5 4:38 PM T [facility] Comment:Specimens from patie nts taking pantoprazole sodium (Protonix) have been shown to produce false positive results. Oxycodone Screen, Ur Positive(A ) Negative LAB CHEMISTRY METHOD 5 4:38 PM EDT [facility] Fentanyl, Ur Negative Negative LAB CHEMISTRY METHOD 4:38 PM EDT [facility] Urine Urine specimen obtained by clean catch procedure / Unknown Non-blood Collection / Unknown 08/13/2025 3:50 PM EDT 08/13/2025 3:59 PM EDT Narrative [facility] - 08/13/2025 4:38 PM EDT Assay cutoffs: Amphetamines 1000 ng/mL Barbiturates 200 ng/mL Benzodiazepines 200 ng/mL Cocaine 300 ng/mL Fentanyl 1 ng/mL Opiates 300 ng/mL Oxycodone 100 ng/mL THC 50 ng/mL Semi-quantitative assay for screening purposes only. Unconfirmed screening result should not be used for non-medical purposes. *ALTERNATE METHOD CONFIRMATION DONE UPON REQUEST ONLY* Lawrence Han MD LAB URINE ORDERABLES Final Resul t Performing Organization Address City/[facility]/ZIP Co de Phone Number [facility] [address] [place] [address], [place] [phone] * Troponin I high sensitivity (08/13/2025 3:43 PM EDT) [facility] High Sensitivity Troponin I 20 <=54 ng/L LAB CHEMISTRY METHOD 08/13/2025 4:42 PM EDT [facility] Blood Venous blood specimen / Unknown Venipuncture / Unknown 08/13/2025 3:43 PM EDT 08/13/2025 3:59 PM EDT Narrative [facility] - 08/13/2025 4:42 PM EDT High levels of biotin in samples may falsely decrease hsTroponin values. Use caution when interpreting hsTroponin results in patients taking biotin who exhibit renal impairment (eGFR <60) or in patients taking more than 20 mg/day of biotin. Lawrence Han MD LAB BLOOD ORDERABLES Final Resul t [facility] [address] [place] [address], * (ABNORMAL) CBC auto differential (08/13/2025 3:43 PM EDT) [facility] WBC 10.6 4.8 - 10.8 K/mcL LAB HEMETOLOGY METHOD 08/13/2025 4:08 PM EDT [facility] RBC 3.70(L) 3.80 - 4.80 M/mcL LAB HEMETOLOGY METHOD 08/13/2025 4:08 PM EDT [facility] Hemoglobin 10.6(L) 11.5 - 16.0 g/dL LAB HEMETOLOGY METHOD 08/13/2025 4:08 PM EDT [facility] Hematocrit 33.0(L) 35.0 - 47.0 % LAB HEMETOLOGY METHOD 08/13/2025 4:08 PM EDT [facility] MCV 88.7 79.0 - 98.0 FL LAB HEMETOLOGY METHOD 08/13/2025 4:08 PM EDT [facility] MCH 28.5 27.0 - 32.0 pcg LAB HEMETOLOGY METHOD 08/13/2025 4:08 PM EDT [facility] MCHC 32.1 32.0 - 37.0 g/dL LAB HEMETOLOGY METHOD 08/13/2025 4:08 PM EDT [facility] RDW 14.6 11.0 - 15.0 % LAB HEMETOLOGY METHOD 08/13/2025 4:08 PM EDT [facility] Platelets 263 130 - 400 K/mcL LAB HEMETOLOGY METHOD 08/13/2025 4:08 PM EDT [facility] MPV 10.7 7.0 - 11.0 FL LAB HEMETOLOGY METHOD 08/13/2025 4:08 PM EDT [facility] NRBC 0.0 <1.0 % LAB HEMETOLOGY METHOD 08/13/2025 4:08 PM [facility] NRBC Absolute 0.00 <0.10 K/mcL LAB HEMETOLOGY METHOD 08/13/2025 4:08 PM [facility] Neutrophils Relative 60.6 % LAB HEMETOLOGY METHOD 08/13/2025 4:08 PM [facility] Lymphocytes Relative 29.5 % LAB HEMETOLOGY METHOD 08/13/2025 4:08 PM [facility] Monocytes Relative 6.2 % LAB HEMETOLOGY METHOD 08/13/2025 4:08 PM [facility] Eosinophils Relative 2.8 % LAB HEMETOLOGY METHOD 08/13/2025 4:08 PM [facility] Basophils Relative 0.6 % LAB HEMETOLOGY METHOD 08/13/2025 4:08 PM [facility] Immature Granulocytes Relative 0.3 % LAB HEMETOLOGY METHOD 08/13/2025 4:08 PM [facility] Neutrophils Absolute 6.45 1.50 - 7.00 K/mcL LAB HEMETOLOGY METHOD 08/13/2025 4:08 PM [facility] Lymphocytes Absolute 3.14 1.00 - 5.00 K/mcL LAB HEMETOLOGY METHOD 08/13/2025 4:08 PM [facility] Monocytes Absolute 0.66 0.20 - 1.00 K/mcL LAB HEMETOLOGY METHOD 08/13/2025 4:08 PM [facility] Eosinophils Absolute 0.30 0.00 - 0.50 K/mcL LAB HEMETOLOGY METHOD 08/13/2025 4:08 PM [facility] Basophils Absolute 0.06 0.00 - 0.20 K/mcL LAB HEMETOLOGY METHOD 08/13/2025 4:08 PM [facility] Immature Granulocytes Absolute 0.03 0.00 - 0.03 K/mcL LAB HEMETOLOGY METHOD 08/13/2025 4:08 PM EDT [facility] Blood Venous blood specimen / Unknown Venipuncture / Unknown 08/13/2025 3:43 PM EDT 08/13/2025 3:58 PM EDT us Lawrence Han MD LAB BLOOD ORDERABLES Final Resul t Performing Organization Address City/[facility]/ZIP Co de Phone Number [facility] [address] [place] [address], [place] [phone] * APTT (08/13/2025 3:43 PM EDT) aPTT 32.6 24.1 - 39.3 sec LAB COAGULATION METHOD 08/13/2025 4:19 PM EDT [facility] Blood Venous blood specimen / Unknown Venipuncture / Unknown 08/13/2025 3:43 PM EDT 08/13/2025 3:58 PM EDT us Lawrence Han MD LAB BLOOD ORDERABLES Final Resul t Performing Organization Address City/[facility]/ZIP Co de Phone Number [facility] [address] [place] [address], [place] [phone] * Protime-INR (08/13/2025 3:43 PM EDT) Protime 11.4 10.6 - 13.9 sec LAB COAGULATION METHOD 08/13/2025 4:19 PM EDT [facility] INR 0.9 LAB COAGULATION METHOD 08/13/2025 4:19 PM EDT [facility] Blood Venous blood specimen / Unknown Venipuncture / Unknown 08/13/2025 3:43 PM EDT 08/13/2025 3:58 PM EDT us Lawrence Han MD LAB BLOOD ORDERABLES Final Resul t Performing Organization Address [facility]/ZIP Co de Phone Number [facility] [address] [place] [address], [place] [phone] * hCG Qualitative (08/13/2025 3:43 PM EDT) [facility] hCG Qual Negative Negative 08/13/2025 4:46 PM EDT [facility] Blood Venous blood specimen / Unknown Venipuncture / Unknown 08/13/2025 3:43 PM EDT 08/13/2025 3:58 PM EDT us Lawrence Han MD LAB BLOOD ORDERABLES Final Resul t Performing Organization Address [facility] de Phone Number [facility] [address] [place] [address], [place] [phone] * B-type natriuretic peptide (08/13/2025 3:43 PM EDT) [facility] BNP 42 <=100 pcg/mL LAB CHEMISTRY METHOD 08/13/2025 4:37 PM EDT [facility] Blood Venous blood specimen / Unknown Venipuncture / Unknown 08/13/2025 3:43 PM EDT 08/13/2025 3:59 PM EDT us Lawrence Han MD LAB BLOOD ORDERABLES Final Resul t Performing Organization Address [facility]/ZIP Co de Phone Number [facility] [address] [place] [address], [place] [phone] * (ABNORMAL) Magnesium (08/13/2025 3:43 PM EDT) [facility] Magnesium 1.4(L) 1.9 - 2.6 mg/dL LAB CHEMISTRY METHOD 08/13/2025 4:35 PM EDT [facility] Blood Venous blood specimen / Unknown Venipuncture / Unknown 08/13/2025 3:43 PM EDT 08/13/2025 3:58 PM EDT us Lawrence Han MD LAB BLOOD ORDERABLES Final Resul t Performing Organization Address [facility]/ZIP Co de Phone Number [facility] [address] [place] [address], [place] [phone] * Lipase (08/13/2025 3:43 PM EDT) [facility] Lipase 42 13 - 75 unit/L LAB CHEMISTRY METHOD 08/13/2025 4:35 PM EDT [facility] Blood Venous blood specimen / Unknown Venipuncture / Unknown 08/13/2025 3:43 PM EDT 08/13/2025 3:58 PM EDT us Lawrence Han MD LAB BLOOD ORDERABLES Final Resul t Performing Organization Address [facility] Co de Phone Number [facility] [address] [place] [address], [place] [phone] * (ABNORMAL) Venous blood gas (08/13/2025 3:43 PM EDT) Pathologist [facility] pH, Jw 7.44(H) 7.32 - 7.42 pH 08/13/2025 4:01 PM EDT [facility] pCO2, Jw 45 41 - 51 mmHg 08/13/2025 4:01 PM EDT [facility] pO2, Jw 50(H) 25 - 40 mmHg 08/13/2025 4:01 PM EDT [facility] HCO3, Venous 29.1(H) 22.0 - 26.0 mmol/L 08/13/2025 4:01 PM EDT [facility] O2 Sat, Jw 84.5 % 08/13/2025 4:01 PM EDT [facility] Base Excess, Jw 5.7(H) -2.0 - 2.0 mmol/L 08/13/2025 4:01 PM T [facility] Blood Venous blood specimen / Unknown Venipuncture / Unknown 08/13/2025 3:43 PM EDT 08/13/2025 3:58 PM EDT us Lawrence Han MD LAB BLOOD ORDERABLES Final Resul t [facility] [address] [place] [address], [place] [phone] * (ABNORMAL) Comprehensive metabolic panel (08/13/2025 3:43 PM EDT) Sodium 137 133 - 145 mmol/L LAB CHEMISTRY METHOD 08/13/2025 4:35 PM [facility] Potassium 3.7 3.5 - 5.5 mmol/L LAB CHEMISTRY METHOD 08/13/2025 4:35 PM [facility] Comment:Hemolysis present Chloride 103 96 - 110 mmol/L LAB CHEMISTRY METHOD 08/13/2025 4:35 PM [facility] CO2 27 21 - 32 mmol/L LAB CHEMISTRY METHOD 08/13/2025 4:35 PM [facility] Anion Gap 7 3 - 11 LAB CHEMISTRY METHOD 08/13/2025 4:35 PM [facility] Glucose 123(H) 70 - 100 mg/dL LAB CHEMISTRY METHOD 08/13/2025 4:35 PM [facility] BUN 23 5 - 25 mg/dL LAB CHEMISTRY METHOD 08/13/2025 4:35 PM [facility] Creatinine 0.87 0.50 - 1.10 mg/dL LAB CHEMISTRY METHOD 08/13/2025 4:35 PM [facility] eGFR 81 >=60 mL/min/1. 73m2 LAB CHEMISTRY METHOD 08/13/2025 4:35 PM [facility] Comment:Calculation based on the Chronic Kidney Disease Epidemiology Collaboration (CKD-EPI) equation refit without adjustment for race. BUN/Creatinine Ratio 26.4 LAB CHEMISTRY METHOD 08/13/2025 4:35 PM EDT [facility] Calcium 9.1 8.5 - 10.5 mg/dL LAB CHEMISTRY METHOD 08/13/2025 4:35 PM EDT [facility] AST (SGOT) 40 10 - 42 unit/L LAB CHEMISTRY METHOD 08/13/2025 4:35 PM T [facility] ALT (SGPT) 33 10 - 60 unit/L LAB CHEMISTRY METHOD 08/13/2025 4:35 PM T [facility] Alkaline Phosphatase 144(H) 42 - 121 unit/L LAB CHEMISTRY METHOD 08/13/2025 4:35 PM T [facility] Total Protein 6.8 6.0 - 8.0 g/dL LAB CHEMISTRY METHOD 08/13/2025 4:35 PM EDT [facility] Albumin 3.4 3.2 - 5.0 g/dL LAB CHEMISTRY METHOD 08/13/2025 4:35 PM T [facility] Total Bilirubin 0.4 0.0 - 1.4 mg/dL LAB CHEMISTRY METHOD 08/13/2025 4:35 PM EDT [facility] Blood Venous blood specimen / Unknown Venipuncture / Unknown 08/13/2025 3:43 PM EDT 08/13/2025 3:58 PM EDT us Lawrence Han MD LAB BLOOD ORDERABLES Final Resul t [facility] [address] [place] [address], * ECG 12 lead (08/13/2025 3:06 PM EDT) Ventricular Rate ECG 96 BPM GEMUSE Atrial Rate 96 BPM GEMUSE P-R Interval 200 ms GEMUSE QRS Duration 82 ms GEMUSE Q-T Interval 390 ms GEMUSE QTc 492 ms GEMUSE P Wave [place] 87 degrees GEMUSE R [place] 7 degrees GEMUSE T [place] 63 degrees GEMUSE ECG Interpretation Normal sinus rhythm Nonspecific T wave abnormality Prolonged QT Abnormal ECG When compared with ECG of 28-MAY-2019 01:04, Nonspecific T wave abnormality now evident in Lateral leads Confirmed by Radha PICKENS JAMES ([id number]) on 08/14/2025 12:53:07 PM GEMUSE 08/13/2025 3:06 PM EDT 08/14/2025 12:53 PM EDT Lawrence Han MD ECG ORDERABLES Final Result GEMUSE from Last 3 Months Insurance MEDICA[place] - [place] Care Teams Contract Loader Relationship Specialty Start Date End Date [place], MD She[address] [place] [address] PCP - General 01/13/1996
--- OUTSIDE RECORDS SUMMARY | 2025-09-06 18:22 | XMS_ITS | Encounter Summary ---
Author Organization [employer] Address [address] [facility] 7 [place] [address] Care Team Providers Care Corporate Administrative Assistant Name Role Phone [place], Shereen NOLASCO Primary Care Provider [phone]- [phone] Nupur Bullock PharmD Unavailable [phone] Sury Benitez Unavailable [phone] JuliusNirali castellanos OD Unavailable Li Grande MD Unavailable [phone] Anselmo Gates MD Unavailable Margaret Holman Unavailable Herberth Stokes MD Unavailable [phone] Hilton Palacios MD Unavailable Aaron Pringle MD Unavailable [phone] Lori James Unavailable Neelima Raygoza Unavailable Ronda Rodríguez Unavailable [phone] Neelima Raygoza Unavailable Neelima Raygoza Unavailable Encounter Details Date Type Department Care Team (Late st Contact Info) Description 04/26/2024 Orders Only [facility] MEDICINE [address] [place] [address] Junie Damon MD [address] [place] [address] Social History Tobacco Use Types Packs/Day Years [...] 3:15 PM EST Office Visit [facility] MEDICINE [address] [place] [address] Shereen Latham MD 230 [place] [address] 10/02/2025 2:00 PM EST Office Visit [facility] ADULT DENTAL [address] [place] [address] Paz-Connor, Isa, DDS [address] [place] [address] documented as of this encounter Visit Diagnoses Not on filedocumented in this encounter Additional Health Concerns Assessment Noted Time PHQ-9 Depression Total Score: 23 024 1:45 PM EDT documented as of this encounter Care Teams Corporate Administrative Assistant Relationship Specialty Start Date End Date Shereen Latham MD 230 [place] [address] PCP - General Family Medicine 11/02/18 Nupur Bullock PharmD [address] [place] [address] Pharmacist Internal Medicine 08/09/24 05/15/25 Sury Benitez [address] [place] [address] Pulmonary Disease 09/27/24 Nirali Madrid OD [address] [place] [address] Optometry 10/27/24 Li Grande MD [address] [place] [address] Hematology and Oncology 10/27/24 Anselmo Gates MD [address] [place] [address] Orthopaedic Surgery 10/27/24 Margaret Holman [address] 3rd [place] [address] Cardiology 10/27/24 Herberth Stokes MD [address] 3rd [place] [address] Gastroenterology 10/27/24 Hilton Palacios MD [address] [place] [address] Neurology 02/06/25 Aaron Pringle MD [address] 3rd [place] [address] General Surgery 03/07/25 Lori James Registered Nurse 06/15/25 06/15/25 Neelima Raygoza 06/15/25 06/16/25 Ronda Rodríguez [address] [place] [address] [address] [place] [address] Obstetrics and Gynecology 08/02/25 Neelima Raygoza 08/14/25 08/23/25 Neelima Raygoza 08/28/25 08/29/25 Pily Delaney Organ Pipe FinisherDoll Dresser 07/22/24 Elie Vicky [facility] Psychology 12/29/24 documented as of this encounter
--- OUTSIDE RECORDS SUMMARY | 2025-09-06 18:22 | XMS_ITS | Encounter Summary ---
Author Organization [employer] Address [address] [place] [address] 7 [place] [address] Care Team Providers Care Towboat Engineer Name Role Phone [place], Shereen NOLASCO Primary Care Provider [phone] Nupur Bullcok PharmD Unavailable Sury Benitez Unavailable [phone] JuliusNirali castellanos OD Unavailable Li Grande MD Unavailable [phone] Anselmo Gates MD Unavailable Margaret Holman Unavailable Herberth Stokes MD Unavailable [phone] Hilton Palacios MD Unavailable Aaron Pringle MD Unavailable [phone] Lori James Unavailable Neelima Raygoza Unavailable Ronda Rodríguez Unavailable [phone] Neelima Raygoza Unavailable Neelima Raygoza Unavailable Reason for Visit * Reason Onset Date Comments Medication Question 08/25/2024 Encounter Details Date Type Department Care Team ([facility] st Contact Info) Description 08/25/2024 Telephone [facility] MEDICINE 230 [place] [address] Shereen Latham MD 230 [place] [address] Medication Question Social History Tobacco Use Types [...] any questions you can contact pt at [phone]. documented in this encounter Plan of Treatment Upcoming Encounters Date Type Department Care Team (Late st Contact Info) Description 09/13/2025 3:15 PM EST Office Visit [facility] MEDICINE 230 [place] [address] Shereen Latham MD [address] [place] [address] 10/02/2025 2:00 PM EST Office Visit [facility] ADULT DENTAL 230 [place] [address] Paz-Connor, Isa, DDS 230 [place] [address] documented as of this encounter Visit Diagnoses Not on filedocumented in this encounter Additional Health Concerns Assessment Noted Time PHQ-9 Depression Total Score: 13 024 4:53 PM EDT documented as of this encounter Care Teams Towboat Engineer Relationship Specialty Start Date End Date Shereen Latham MD [address] [place] [address] PCP - General Family Medicine 11/02/18 Nupur Bullock, CharleneD [address] [place] [address] Pharmacist Internal Medicine 08/09/24 05/15/25 Sury Benitez [address] [place] [address] [place] [address] Pulmonary Disease 09/27/24 Julius NiraliSUSAN [address] [place] [address] Optometry 10/27/24 Li Grande MD [address] [place] [address] Hematology and Oncology 10/27/24 Anselmo Gates MD [address] [place] [address] Orthopaedic Surgery 10/27/[address] [facility] 3rd [place] [address] Cardiology 10/27/24 Herberth Stokes MD [address] [facility] 3rd [place] [address] Gastroenterology 10/27/24 Hilton Palacios MD [address] [place] [address], [address] [place] [address] Neurology 02/06/25 Aaron Pringle MD [address] [facility] 3rd [place] [address] General Surgery 03/07/25 Lori James Registered Nurse 06/15/25 06/15/25 Neelima Raygoza 06/15/25 06/16/25 Ronda Rodríguez [address] [place] [address] 215 [place] [address] Obstetrics and Gynecology 08/02/25 Neelima Raygoza 08/14/25 08/23/25 Neelima Raygoza 08/28/25 08/29/25 Pily Delaney Body Die MakerEmployment Specialist 07/22/24 Elie BRASHER [facility] Psychology 12/29/24 documented as of this encounter
--- OUTSIDE RECORDS SUMMARY | 2025-09-06 18:22 | XMS_ITS | Encounter Summary ---
Author Organization [employer] Address [address] [place] [address] 7 [place] [address] Care Team Providers Care Fish Checker Name Role Phone Shereen Latham MD Primary Care Provider [phone] Nupur Bullock PharmD Unavailable Sury Benitez Unavailable [phone] Julius, Nirali OD Unavailable Li Grande MD Unavailable [phone] Anselmo Gates MD Unavailable Margaret Holman Unavailable Herberth Stokes MD Unavailable [phone] Hilton Palacios MD Unavailable Aaron Pringle MD Unavailable [phone] Lori James Unavailable Neelima Raygoza Unavailable Ronda Rodríguez Unavailable Neelima Raygoza Unavailable Neelima Raygoza Unavailable Encounter Details Date Type Department Care Team (Late st Contact Info) Description 10/11/2024 Telephone [facility] MEDICINE 230 [place] [address] Shereen Latham MD 230 [place] [address] Social History Tobacco Use Types Packs/Day Years [...] Description 09/13/2025 3:15 PM EST Office Visit [facility] MEDICINE [address] [place] [address] Shereen Latham MD 230 [place] [address] 10/02/2025 2:00 PM EST Office Visit [facility] ADULT DENTAL 230 [place] [address] Paz-Connor, Isa, DDS [address] [place] [address] documented as of this encounter Visit Diagnoses Not on filedocumented in this encounter Additional Health Concerns Assessment Noted Time PHQ-9 Depression Total Score: 13 024 4:53 PM EDT documented as of this encounter Care Teams Fish Checker Relationship Specialty Start Date End Date Shereen L[place] MD 230 [place] [address] PCP - General Family Medicine 11/02/18 Nupur Bullock, CharleneD [address] [place] [address] Pharmacist Internal Medicine 08/09/24 05/15/25 Sury Benitez [address] [place] [address] Pulmonary Disease 09/27/24 Nirali Madrid OD [address] [place] [address] Optometry 10/27/24 Li Grande MD [address] [place] [address] Hematology and Oncology 10/27/24 Anselmo Gates MD [address] [place] [address] Orthopaedic Surgery 10/27/24 Margaret Holman [address] 3rd [place] [address] Cardiology 10/27/24 Herberth Stokes MD [address] 3rd [place] [address] Gastroenterology 10/27/24 Hilton Palacios MD [address], [address] [place] [address] Neurology 02/06/25 Aaron Pringle MD [address] 3rd [place] [address] General Surgery 03/07/25 Lori James Registered Nurse 06/15/25 06/15/25 Neelima Raygoza 06/15/25 06/16/25 Ronda Rodríguez [address] [place] [address] 215 [place] [address] Obstetrics and Gynecology 08/02/25 Neelima Raygoza 08/14/25 08/23/25 Neelima Raygoza 08/28/25 08/29/25 Pily Delaney Mail WeigherAssistant Oceanographer 07/22/24 Elie Vicky [facility] Psychology 12/29/24 documented as of this encounter
--- OUTSIDE RECORDS SUMMARY | 2025-09-06 18:22 | XMS_ITS | Encounter Summary ---
Author Organization [employer] Address [address] [facility] 7 [place] [address] Care Team Providers Care Laborer Pole Crew Name Role Phone Shereen [place] MD Primary Care Provider [phone] Nupur Bullock PharmD Unavailable [phone] Sury Benitez Unavailable [phone] Julius, Nirali OD Unavailable Li Grande MD Unavailable [phone] Anselmo Gates MD Unavailable Margaret Holman Unavailable Herberth Stokes MD Unavailable [phone] Hilton Palacios MD Unavailable Aaron Pringle MD Unavailable [phone] Lori James Unavailable Neelima Raygoza Unavailable Ronda Rodríguez Unavailable Neelima Raygoza Unavailable Neelima Raygoza Unavailable Encounter Details Date Type Department Care Team (Late st Contact Info) Description 10/22/2023 Orders Only [facility] MEDICINE [address] [place] [address] Shereen Latham MD 230 [place] [address] Vitamin D deficiency Social History Tobacco Use [...] Description 09/13/2025 3:15 PM EST Office Visit [facility] MEDICINE [address] [place] [address] Shereen Latham MD [address] [place] [address] 10/02/2025 2:00 PM EST Office Visit [facility] ADULT DENTAL 230 [place] [address] Paz-Connor, Isa, DDS 230 [place] [address] documented as of this encounter Visit Diagnoses Diagnosis Vitamin D deficiency documented in this encounter Additional Health Concerns Assessment Noted Time PHQ-9 Depression Total Score: 023 10:42 AM EST documented as of this encounter Care Teams Laborer Pole Crew Relationship Specialty Start Date End Date Shereen Latham MD [address] [place] [address] PCP - General Family Medicine 11/02/18 Nupur Bullock, CharleneD [address] [place] [address], [place] [address] Pharmacist Internal Medicine 08/09/24 05/15/25 Sury Benitez [address] [place] [address] [address] [place] [address] Pulmonary Disease 09/27/24 Julius Nirali SUSAN 267 [place] [address] Optometry 10/27/24 Li Grande MD 575 [place] [address] Hematology and Oncology 10/27/24 Anselmo Gates MD [address] [facility] 203 [place] [address] Orthopaedic Surgery 10/27/24 Margaret Holman 11 [facility] 3rd [place] [address] Cardiology 10/27/24 Herberth Stokes MD 11 [facility] 3rd [place] [address] Gastroenterology 10/27/24 Hilton Palacios MD [address] [facility], [address] [place] [address] Neurology 02/06/25 Aaron Pringle MD 11 [facility] 3rd [place] [address] General Surgery 03/07/25 Lori James Registered Nurse 06/15/25 06/15/25 Neelima Raygoza 06/15/25 06/16/25 Ronda Rodríguez [address] [place] [address] 215 [place] [address] Obstetrics and Gynecology 08/02/25 Neelima Raygoza 08/14/25 08/23/25 Neelima Raygoza 08/28/25 08/29/25 Pily Delaney Nursing Surgical Services DirectorEngine Manager 07/22/24 Elie Vicky [facility] Psychology 12/29/24 documented as of this encounter
--- OUTSIDE RECORDS SUMMARY | 2025-09-06 18:22 | XMS_ITS | Encounter Summary ---
Author Organization [employer] Address [address] [place] [address] 7 [place] [address] Care Team Providers Care Physical Fitness Teacher Name Role Phone [place], Shereen NOLASCO Primary Care Provider [phone] Nupur Bullock PharmD Unavailable Suyr Benitez Unavailable [phone] JuliusNirali castellanos OD Unavailable Li Grande MD Unavailable [phone] Anselmo Gates MD Unavailable Margaret Holman Unavailable Herberth Stokes MD Unavailable Hilton Palacios MD Unavailable Aaron Pringle MD Unavailable [phone] Lori James Unavailable Neelima Raygoza Unavailable Ronda Rodríguez Unavailable [phone] Neelima Raygoza Unavailable Neelima Raygoza Unavailable Reason for Visit * Reason Onset Date Comments Appointment Request 04/25/2025 Encounter Details Date Type Department Care Team ([facility] st Contact Info) Description 04/25/[address] [facility] MEDICINE 230 [place] [address] Shereen Latham MD 230 [place] [address] Appointment Request Social History Tobacco Use Types [...] 3:15 PM EST Office Visit [facility] MEDICINE 230 [place] [address] Shereen Latham MD [address] [place] [address] 10/02/2025 2:00 PM EST Office Visit [facility] ADULT DENTAL 230 [place] [address] Paz-Connor, Isa, DDS 230 [place] [address] documented as of this encounter Visit Diagnoses Not on filedocumented in this encounter Additional Health Concerns Assessment Noted Time PHQ-9 Depression Total Score: 22 025 10:17 AM EST documented as of this encounter Care Teams Physical Fitness Teacher Relationship Specialty Start Date End Date Shereen L[place] MD [address] [place] [address] PCP - General Family Medicine 11/02/18 Nupur Bullock, CharleneD [address] [place] [address] Pharmacist Internal Medicine 08/09/24 05/15/25 Sury Benitez [address] [place] [address] Dr Yates [address] [place] [address] Pulmonary Disease 09/27/24 Nirali Madrid OD 267 [place] [address] Optometry 10/27/24 Li Grande MD 575 [place] [address] Hematology and Oncology 10/27/24 Anselmo Gates MD [address] [facility] [address] [place] [address] Orthopaedic Surgery 10/27/24 Margaret Holman [address] 3rd [place] [address] Cardiology 10/27/24 Herberth Stokes MD 11 [facility] 3rd [place] [address] Gastroenterology 10/27/24 Hilton Palacios MD 15 [facility], [address] [place] [address] Neurology 02/06/25 Aaron Pringle MD [address] [place] [address] 3rd [place] [address] General Surgery 03/07/25 Lori James Registered Nurse 06/15/25 06/15/25 Neelima Raygoza 06/15/25 06/16/25 Ronda Rodríguez [address] [place] [address] [address] [place] [address] Obstetrics and Gynecology 08/02/25 Neelima Raygoza 08/14/25 08/23/25 Neelima Raygoza 08/28/25 08/29/25 Pily Delaney Laborer CheesemakingResident Service Coordinator 07/22/24 Elie BRASHER [facility] Psychology 12/29/24 documented as of this encounter
--- OUTSIDE RECORDS SUMMARY | 2025-09-06 18:22 | XMS_ITS | Encounter Summary ---
Author Organization [employer] Address [address] [place] [address] 7 [place] [address] Care Team Providers Care Supervisor Rides Name Role Phone [place], Shereen NOLASCO Primary Care Provider [phone] Nupur Bullock PharmD Unavailable Sury Benitez Unavailable [phone] Julius, Nirali OD Unavailable Li Grande MD Unavailable [phone] Anselmo Gates MD Unavailable Margaret Holman Unavailable Herberth Stokes MD Unavailable [phone] Hilton Palacios MD Unavailable Aaron Pringle MD Unavailable [phone] Lori James Unavailable Neelima Raygoza Unavailable Ronda Rodríguez Unavailable Neelima Raygoza Unavailable Neelima Raygoza Unavailable Reason for Visit * Reason Comments Med Refill Encounter Details Date Type Department Care Team (Late st Contact Info) Description 12/02/2022 Refill [facility] MEDICINE 230 [place] [address] Shereen Latham MD [address] [place] [address] Wheeze (Primary Dx); Pain Social History Tobacco [...] Description 09/13/2025 3:15 PM EST Office Visit [facility] MEDICINE [address] [place] [address] Shereen Latham MD [address] [place] [address] 10/02/2025 2:00 PM EST Office Visit [facility] ADULT DENTAL [address] [place] [address] Isa De La Rosa, DDS [address] [place] [address] documented as of this encounter Visit Diagnoses Diagnosis Wheeze- Primary Wheezing Pain Generalized pain documented in this encounter Care Teams Supervisor Rides Relationship Specialty Start Date End Date Shereen Latham MD [address] [place] [address] PCP - General Family Medicine 11/02/18 Nupur Bullock, PharmD [address] [place] [address] Pharmacist Internal Medicine 08/09/24 05/15/25 Sury Benitez [address] [place] [address] Dr Milan [address] [place] [address] Pulmonary Disease 09/27/24 Nirali Madrid OD 267 [place] [address] Optometry 10/27/24 Li Grande MD [address] [place] [address] Hematology and Oncology 10/27/24 Anselmo Gates MD [address] [place] [address] Orthopaedic Surgery 10/27/24 Margaret Holman [address] 3rd [place] [address] Cardiology 10/27/24 Herberth Stokes MD 11 [facility] 3rd [place] [address] Gastroenterology 10/27/24 Hilton Palacios MD 15 [facility], [address] [place] [address] Neurology 02/06/25 Aaron Pringle MD 11 [facility] 3rd [place] [address] General Surgery 03/07/25 Lori James Registered Nurse 06/15/25 06/15/25 Neelima Raygoza 06/15/25 06/16/25 Ronda Rodríguez [address] [place] [address] [address] [place] [address] Obstetrics and Gynecology 08/02/25 Neelima Raygoza 08/14/25 08/23/25 Neelima Raygoza 08/28/25 08/29/25 Pily Delaney Software Development InternManaging Broker 07/22/24 Elie BRASHER [facility] Psychology 12/29/24 documented as of this encounter
--- OUTSIDE RECORDS SUMMARY | 2025-09-06 18:22 | XMS_ITS | Encounter Summary ---
Author Organization [employer] Address [address] [place] [address] 7 [place] [address] Care Team Providers Care Photo Graphics Librarian Name Role Phone Shereen Latham MD Primary Care Provider [phone] Nupur Bullock PharmD Unavailable Sury Benitez Unavailable [phone] Julius, Nirali OD Unavailable Li Grande MD Unavailable Anselmo Gates MD Unavailable Margaret Holman Unavailable Herberth Stokes MD Unavailable [phone] Hilton Palacios MD Unavailable Aaron Pringle MD Unavailable [phone] Lori James Unavailable Neelima Raygoza Unavailable Rnoda Rodríguez Unavailable Neelima Raygoza Unavailable Neelima Raygoza Unavailable Encounter Details Date Type Department Care Team (Late st Contact Info) Description 11/16/2022 Abstract [facility] MEDICINE [address] [place] [address] Shereen Latham MD [address] [place] [address] Social History Tobacco Use Types Packs/Day Years [...] 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 Per Dr. Krish Loomis's note from [facility] BUILDING ANALYST/SUPERVISOR, pt was due for repeat colposcopy in [...] Associated Problem(s): Hyperaldosteronism (Resolved 07/29/2023) Seen by [facility] Endocrinology 04/03/2022. Initially seen 12/2021 for hyperaldosteronism. Labs [facility] 10/2021 aldosterone 8, plasma renin 0.11, aldosterone/renin 72.7. She was likely on spironolactone and lisinopril at time of labs. Advise no spironolactone for 6 weeks and recheck renin aldosterone levels with renal panel and magnesium in director of leadership development. 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 -S/p RIGHT [facility]aste[facility] with sent[facility] started [...] had ultrasound sound for abdominal pain at [facility]. Ultrasound showed diffusely echogenic parenchyma with focal sparing around the gallbladder. No suspicious lesions. Impression showed liver likely representing hepatic steatosis and non- obstructing right kidney stone. documented in this encounter Plan of Treatment Upcoming Encounters Date Type Department Care Team (Late st Contact Info) Description 09/13/2025 3:15 PM EST Office Visit [facility] MEDICINE 230 [place] [address] Shereen Latham MD 230 [place] [address] 10/02/2025 2:00 PM EST Office Visit [facility] ADULT DENTAL [address] [place] [address] Isa De La Rosa, DDS 230 [place] [address] documented as of this encounter Visit Diagnoses Not on filedocumented in this encounter Care Teams Photo Graphics Librarian Relationship Specialty Start Date End Date Shereen Latham MD 230 [place] [address] PCP - General Family Medicine 11/02/18 Nupur Bullock PharmD 230 [place] [address] Pharmacist Internal Medicine 08/09/24 05/15/25 Sury Benitez [address] [place] [address] [place] [address] Pulmonary Disease 09/27/24 Nirali Madrid OD [address] [place] [address] Optometry 10/27/24 Li Grande MD 575 [place] [address] Hematology and Oncology 10/27/24 Anselmo Gates MD 10 [facility] [address] [place] [address] Orthopaedic Surgery 10/27/24 Margaret Holman 11 [facility] 3rd [place] [address] Cardiology 10/27/24 Herberth Stokes MD 11 [facility] 3rd [place] [address] Gastroenterology 10/27/24 Hilton Palacios MD 15 [facility], [address] [place] [address] Neurology 02/06/25 Aaron Pringle MD [address] [place] [address] 3[address] [place] [address] General Surgery 03/07/25 Lori James Registered Nurse 06/15/25 06/15/25 Neelima Raygoza 06/15/25 06/16/25 Ronda Rodríguez [address] [place] [address] 215 [place] [address] Obstetrics and Gynecology 08/02/25 Neelima Raygoza 08/14/25 08/23/25 Neelima Raygoza 08/28/25 08/29/25 Pily Delaney Golf Course PatrollerHr Intern 07/22/24 Elie Vicky [facility] 12/29/24 documented as of this encounter
--- OUTSIDE RECORDS SUMMARY | 2025-09-06 18:22 | XMS_ITS | Encounter Summary ---
Author Organization [employer] Address 75 [facility] 7t [place] [address] Care Team Providers Care Digital Analytics Manager Name Role Phone [place], Shereen NOLASCO Primary Care Provider [phone] Nupur Bullock PharmD Unavailable Sury Benitez Unavailable [phone] JuliusNirali castellanos OD Unavailable Li Grande MD Unavailable [phone] Anselmo Gates MD Unavailable Margaret Holman Unavailable Herberth Stokes MD Unavailable [phone] Hilton Palacios MD Unavailable Aaron Pringle MD Unavailable [phone] Lori James Unavailable Neelima Raygoza Unavailable Ronda Rodríguez Unavailable [phone] Neelima Raygoza Unavailable Neelima Raygoza Unavailable Encounter Details Date Type Department Care Team (Latest Contact Info) Description 08/16/2021 Abstract [facility] CONVERSIONS Dental, Provider, DDS Social History [...] EST Office Visit [facility] MEDICINE [address] [place] [address] Shereen Latham MD [address] [place] [address] 10/02/2025 2:00 PM EST Office Visit [facility] ADULT DENTAL [address] [place] [address] Isa De La Rosa, DDS [address] [place] [address] documented as of this encounter Visit Diagnoses Not on filedocumented in this encounter Care Teams Digital Analytics Manager Relationship Specialty Start Date End Date Shereen Latham MD [address] [place] [address] PCP - General Family Medicine 11/02/18 Nupur Bullock, CharleneD [address] [place] [address] Pharmacist Internal Medicine 08/09/24 05/15/25 Sury Benitez [address] [place] [address] Pulmonary Disease 09/27/24 Nirali Madrid OD [address] [place] [address] Optometry 10/27/24 Li Grande MD [address] [place] [address] Hematology and Oncology 10/27/24 Anselmo Gates MD 10 [facility] [address] [place] [address] Orthopaedic Surgery 10/27/24 Margaret Holman 11 [facility] 3rd [place] [address] Cardiology 10/27/24 Herberth Stokes MD 11 [facility] 3rd [place] [address] Gastroenterology 10/27/24 Hilton Palacios MD 15 [facility], [address] [place] [address] Neurology 02/06/25 Aaron Pringle MD 11 [facility] 3rd [place] [address] General Surgery 03/07/25 Lori James Registered Nurse 06/15/25 06/15/25 Neelima Raygoza 06/15/25 06/16/25 Ronda Rodríguez [address] [place] [address] [address] [place] [address] Obstetrics and Gynecology 08/02/25 Neelima Raygoza 08/14/25 08/23/25 Neelima Raygoza 08/28/25 08/29/25 Pily Delaney Certified Nurses AideBoiler Repairman 07/22/24 Elie Vicky [facility] Psychology 12/29/24 documented as of this encounter
--- OUTSIDE RECORDS SUMMARY | 2025-09-06 18:23 | XMS_ITS | Encounter Summary ---
Author Organization [employer] Address 75 [facility] 7 [place] [address] Care Team Providers Care Electrician Telephone Name Role Phone Shereen Latham MD Primary Care Provider [phone] Sury Benitez Unavailable [phone] Nirali Madrid OD Unavailable Li Grande MD Unavailable [phone] Anselmo Gates MD Unavailable Margaret Holman Unavailable Herberth Stokes MD Unavailable [phone] Hilton Palacios MD Unavailable Aaron Pringle MD Unavailable [phone] Ronda Rodríguez Unavailable [phone] Reason for Visit * Reason Comments Med Refill Encounter Details Date Type Department Care Team (Late st Contact Info) Description 09/05/2025 Refill [facility] CHC MED & PEDS [address] [place], [place] [phone] Shereen Latham MD [address] [place] [address] Pain; Chronic pain of both knees Social History Tobacco Use Types Packs/Day Years [...] Upcoming Encounters Date Type Department Care Team ([facility] st Contact Info) Description 09/13/2025 3:15 PM EST Office Visit [facility] MEDICINE [address] [place] [address] Shereen Latham MD [address] [place] [address] 10/02/2025 2:00 PM EST Office Visit [facility] ADULT DENTAL [address] [place] [address] Paz-ConnorIsa, DDS [address] [place] [address] documented as of this encounter Visit Diagnoses Diagnosis Pain Generalized pain Chronic pain of both knees documented in this encounter Additional Health Concerns Assessment Noted Time PHQ-9 Depression Total Score: 21 025 11:03 AM EDT documented as of this encounter Care Teams Electrician Telephone Relationship Specialty Start Date End Date Shereen Latham MD [address] [place] [address] PCP - General Family Medicine 11/02/18 Sury Benitez [address] [place] [address] [facility] [address] [place] [address] Pulmonary Disease 09/27/24 Nirali Madrid OD [address] [place] [address] Optometry 10/27/24 Li Grande MD [address] [place] [address] Hematology and Oncology 10/27/24 Anselmo Gates MD [address] [place] [address] Orthopaedic Surgery 10/27/24 Margaret Holman [address] [facility] [address] [place] [address] Cardiology 10/27/24 Herberth Stokes MD [address] [facility] [address] [place] [address] Gastroenterology 10/27/24 Hilton Palacios MD [address] [place] [address] DR, [address] [place] [address] Neurology 02/06/25 Aaron Pringle MD [address] [place] [address] Drive 3rd [place] [address] General Surgery 03/07/25 Ronda Rodríguez [address] [place] [address] [address] [place] [address] Obstetrics and Gynecology 08/02/25 Pily Delaney Consulting Technical ManagerCatalyst Operator Chief 07/22/24 Elie BRASHER [facility] Psychology 12/29/24 documented as of this encounter
--- OUTSIDE RECORDS SUMMARY | 2025-09-06 18:23 | XMS_ITS | Encounter Summary ---
Author Organization [employer] Address 75 [facility] 7 [place] [address] Care Team Providers Care Travel Administrator Name Role Phone Shereen Latham MD Primary Care Provider [phone] Sury Benitez Unavailable [phone] Nirali Madrid OD Unavailable [phone] Li Grande MD Unavailable Anselmo Gates MD Unavailable Margaret Holman Unavailable Herberth Stokes MD Unavailable [phone] Hilton Palacios MD Unavailable Aaron Pringle MD Unavailable [phone] Ronda Rodríguez Unavailable Encounter Details Date Type Department Care Team (Late st Contact Info) Description 09/05/2025 Orders [address] [facility] WALK-IN CENTER [address] [place] [address] Shereen Latham MD 230 [place], [place] [phone] Hypomagnesemia (Primary Dx) Social History Tobacco Use [...] PM EST Office Visit [facility] MEDICINE [address] [place] [address] Shereen Latham MD 230 [place] [address] 10/02/2025 2:00 PM EST Office Visit [facility] ADULT DENTAL 230 [place] [address] Paz-Connor, Isa, DDS [address] [place] [address] Scheduled Orders Name Type Priority Associated Diagnoses Orde r Schedule Magnesium Lab Routine Hypomagnesemia Expected: 09/05/2025, Expires: 09/05/2026 TSH W/Reflex to FT4 Lab Routine Hypomagnesemia Expected: 09/05/2025 (Approximate), Expires: 09/05/2026 documented as of this encounter Visit Diagnoses Diagnosis Hypomagnesemia- Primary Disorders of magnesium metabolism documented in this encounter Additional Health Concerns Assessment Noted Time PHQ-9 Depression Total Score: 21 025 11:03 AM EDT documented as of this encounter Care Teams Travel Administrator Relationship Specialty Start Date End Date Shereen Latham MD [address] [place] [address] PCP - General Family Medicine 11/02/18 Sury Benitez [address] [place] [address] [address] [place] [address] Pulmonary Disease 09/27/24 Nirali Madrid OD 267 [place] [address] Optometry 10/27/24 Li Grande MD [address] [place] [address] Hematology and Oncology 10/27/24 Anselmo Gates MD [address] [facility] [address] [place] [address] Orthopaedic Surgery 10/27/24 Margaret Holman [address] 3rd [place] [address] Cardiology 10/27/24 Herberth Stokes MD [address] [facility] [address] 3rd [place] [address] Gastroenterology 10/27/24 Hilton Palacios MD [address] [place] [address], [address] [place] [address] Neurology 02/06/25 Aaron Pringle MD [address] [facility] [address] [place] [address] General Surgery 03/07/25 Ronda Rodríguez [address] [place] [address] [address] [place] [address] Obstetrics and Gynecology 08/02/25 Pily Delaney Home Weatherizing WorkerWatch Crystal Grinder 07/22/24 Elie BRASHER [facility] Psychology 12/29/24 documented as of this encounter
--- OUTSIDE RECORDS SUMMARY | 2025-09-06 18:23 | XMS_ITS | Encounter Summary ---
Author Organization [employer] Address 75 [facility] 7t [place] [address] Care Team Providers Care Catering Sous Chef Name Role Phone [place], Shereen NOLASCO Primary Care Provider [phone] Sury Benitez Unavailable [phone] Nirali Madrid OD Unavailable Li Grande MD Unavailable [phone] Anselmo Gates MD Unavailable Margaret Holman Unavailable Herberth Stokes MD Unavailable [phone] Hilton Palacios MD Unavailable Aaron Pringle MD Unavailable [phone] Ronda Rodríguez Unavailable Encounter Details Date Type Department Care Team (Late st Contact Info) Description 09/06/2025 Orders Only [facility] External Provider, [facility] Social History Tobacco Use Types Packs/Day [...] Office Visit [facility] MEDICINE [address] [place] [address] Shereen Latham MD 230 [place] [address] 10/02/2025 2:00 PM EST Office Visit [facility] ADULT DENTAL 230 [place] [address] Brandi-Isa Connor, DDS 230 [place] [address] documented as of this encounter Procedures Procedure Name Priority Date/Time Associated Diagnosis Comments CT CHEST WO CONTRAST Routine 09/06/2025 4:28 PM EST documented in this encounter Results * CT Chest w/o Contrast (09/06/2025 4:28 PM EST) Anatomical Region Laterality Modality Body, Chest Computed Tomogra phy 09/06/2025 4:28 PM EST Narrative 09/06/2025 5:27 PM EST [facility] [address] [place] [address] [address] [address] Scan Report Signed Patient: Azra Cast MR#: [id number] : 1975 Acct:[id number] Age/Sex: 49 / F ADM Date: 09/06/25 Loc: HO.CT Attending Dr: Sury Benitez NP Ordering Physician: Sury Benitez NP Date of Service: 09/06/25 Procedure(s): CT chest wo IV con Accession Number(s): [id number] cc: Shereen Latham MD; Sury Benitez NP Report Number: [id number]: Total DLP = 198.00 mGy-cm Reason for [...] Chandrika Garg MD 09/06/2025 05:23 PM EST Dictated By: Chandrika Garg MD Signed By: <Electronically signed by Chandrika Garg MD in OV> 09/06/25 1723 DD/ 1628 TD/TT: 09/06/25 1640 Shell Press Operator: CAROLINE Procedure Note Donotuseinterpreter, Image - 09/06/[address] [address] [address] Scan Report Signed Patient: Maged Cast#: [id number] : 1975Acct:[id number] Age/Sex: 49 / FADM Date: 09/06/25 Loc: HO.CT Attending Dr: Sury Benitez NP Ordering Physician: Sury Benitez NP Date of Service: 09/06/25 Procedure(s): CT chest wo IV con Accession Number(s): [id number] cc: Shereen Latham MD; Sury Benitez NP Report Number: [id number]: Total DLP = 198.00 mGy-cm Reason for [...] Chandrika Garg MD 09/06/2025 05:23 PM EST Dictated By: Chandrika Garg MD Signed By: <Electronically signed by Chandrika Garg MD in OV> 09/06/25 1723 DD/ 1628 TD/TT: 09/06/25 1640 Shell Press Operator: CAROLINE [facility] External Provider IMG CT PROCEDURES Final Result documented in this encounter Visit Diagnoses Not on filedocumented in this encounter Additional Health Concerns Assessment Noted Time PHQ-9 Depression Total Score: 21 025 11:03 AM EDT documented as of this encounter Care Teams Catering Sous Chef Relationship Specialty Start Date End Date Shereen Latham MD [address] [place] [address] PCP - General Family Medicine 11/02/18 Sury Benitez [address] [place] [address] [address] [place] [address] Pulmonary Disease 09/27/24 Nirali Madrid OD 267 [place] [address] Optometry 10/27/24 Li Grande MD [address] [place] [address] Hematology and Oncology 10/27/24 Anselmo Gates MD 10 [facility] [address] [place] [address] Orthopaedic Surgery 10/27/24 Margaret Holman [address] [facility] [place] 3rd [place] [address] Cardiology 10/27/24 Herberth Stokes MD 11 [facility] 3rd [place] [address] Gastroenterology 10/27/24 Hilton Palacios MD [address] [place] [address], [address] [place] [address] Neurology 02/06/25 Aaron Pringle MD 11 [facility] 3rd [place] [address] General Surgery 03/07/25 Ronda Rodríguez [address] [place] [address] Obstetrics and Gynecology 08/02/25 Pily Delaney Departmental BuyerPlexiglas Former 07/22/[address] [facility] Psychology 12/29/24 documented as of this encounter
--- OUTSIDE RECORDS SUMMARY | 2025-09-06 18:23 | XMS_ITS | Encounter Summary ---
Author Organization [employer] Address [address] [place] [address] 7 [place] [address] Care Team Providers Care News Agent Name Role Phone [place], Shereen NOLASCO Primary Care Provider [phone] Sury Benitez Unavailable [phone] Nirali Madrid OD Unavailable Li Grande MD Unavailable [phone] Anselmo Gates MD Unavailable Margaret Holman Unavailable Herberth Stokes MD Unavailable [phone] Hilton Palacios MD Unavailable Aaron Pringle MD Unavailable [phone] Neelima Raygoza Unavailable Ronda Rodríguez Unavailable [phone] Neelima Raygoza Unavailable Neelima Raygoza Unavailable Reason for Visit * Reason Onset Date Comments active requested appt 06/16/2025 Encounter Details Date Type Department Care Team ([facility] st Contact Info) Description 06/16/2025 Telephone C ADULT DENTAL [address] [place] [address] Isa De La Rosa DDS [address] [place] [address] active requested appt Social History Tobacco Use [...] Description 09/13/2025 3:15 PM EST Office Visit [facility] [address] [place] [address] Shereen Latham MD 230 [place] [address] 10/02/2025 2:00 PM EST Office Visit [facility] ADULT DENTAL 230 [place] [address] Paz-ConnorAdelaide abarcamia, DDS 230 [place] [address] documented as of this encounter Visit Diagnoses Not on filedocumented in this encounter Additional Health Concerns Assessment Noted Time PHQ-9 Depression Total Score: 21 025 11:03 AM EDT documented as of this encounter Care Teams News Agent Relationship Specialty Start Date End Date Shereen Latham MD 230 [place] [address] PCP - General Family Medicine 11/02/18 Sury Benitez [address] [place] [address] Dr Y[address] [place] [address] Pulmonary Disease 09/27/24 Nirali Madrid OD [address] [place] [address] Optometry 10/27/24 Li Grande MD [address] [place] [address] Hematology and Oncology 10/27/24 Anselmo Gates MD [address] [facility] [address] [place] [address] Orthopaedic Surgery 10/27/24 Margaret Holman [address] [facility] [address] 3rd [place] [address] Cardiology 10/27/24 Herberth Stokes MD [address] [facility] [address] [place] [address] Gastroenterology 10/27/24 Hilton Palacios MD 15 [facility], [address] [place] [address] Neurology 02/06/25 Aaron Pringle MD 11 [facility] 3rd [place] [address] General Surgery 03/07/25 Neelima Raygoza 06/15/25 06/16/25 Ronda Rodríguez [address] [place] [address] 215 [place] [address] Obstetrics and Gynecology 08/02/25 Neelima Raygoza 08/14/25 08/23/25 Neelima Raygoza 08/28/25 08/29/25 Pily Delaney Tool Radial Drill Press Set Up OperatorGrant Administrator 07/22/24 Elie Vicky [facility] Psychology 12/29/24 documented as of this encounter
--- OUTSIDE RECORDS SUMMARY | 2025-09-06 18:23 | XMS_ITS | Encounter Summary ---
Author Organization [employer] Address 75 [facility] 7t [place] [address] Care Team Providers Care Surgery Manager Name Role Phone Shereen Latham MD Primary Care Provider [phone] Sury Benitez Unavailable [phone] Nirali Madrid OD Unavailable Li Grande MD Unavailable [phone] Anselmo Gates MD Unavailable Margaret Holman Unavailable Herberth Stokes MD Unavailable [phone] Hilton Palacios MD Unavailable [phone] Aaron Pringle MD Unavailable [phone] Ronda Rodríguez Unavailable Reason for Visit * Reason Comments Care Coordination CHW outreach for SDO H PT-1 and food needs-referral completed Encounter Details Date Type Department Care Team (Latest Contact Info) Description 09/01/2025 Patient Outreach [facility] MEDICINE [address] [place], [place] [phone] Shereen Latham MD [address] [place], [place] [phone] Care Coordination (CHW outreach for SDOH PT-1 and food needs-referral completed /) Social History Tobacco Use Types Packs/Day Years [...] as of this encounter Progress Notes * Sreekatnh Castaneda - 09/01/2025 1:38 PM EDT CHW Sreekanth Castaneda, placed outbound call to patient for assistance with SDOH as a referral was received by the provider. Patient's name and were confirmed. Patient screened positive for the following SDOH food insecurities. Patient states family in on SNAP program at this time. CHW referral patient to the local list of pantries in the area for help. PT-1 requested was send out in behalf of patient for futures appt. Patient verbalizes understanding, and able to agree with plan to follow up.Patient educated on extended clinic hours on Mondays through Wednesdays, and Walk-In Urgent Care Located in [facility]. Patient provided with after-hours line for [facility], , which offer night time triage service and option to transfer to documentation engineer provider if needed. documented in this encounter Plan of Treatment Upcoming Encounters Date Type Department Care Team (Late st Contact Info) Description 09/13/2025 3:15 PM EST Office Visit [facility] MEDICINE [address] [place] [address] Shereen Latham MD [address] [place] [address] 10/02/2025 2:00 PM EST Office Visit [facility] ADULT DENTAL [address] [place] [address] Paz-Connor, Isa, DDS [address] [place] [address] documented as of this encounter Visit Diagnoses Not on filedocumented in this encounter Additional Health Concerns Assessment Noted Time PHQ-9 Depression Total Score: 21 025 11:03 AM EDT documented as of this encounter Care Teams Surgery Manager Relationship Specialty Start Date End Date Shereen Latham MD [address] [place] [address] PCP - General Family Medicine 11/02/18 Sury Benitez [address] [facility] [address] [place] [address] Pulmonary Disease 09/27/24 Nirali Madrid OD [address] [place] [address] Optometry 10/27/24 Li Grande MD [address] [place] [address] Hematology and Oncology 10/27/24 Anselmo Gates MD [address] [place] [address] Orthopaedic Surgery 10/27/24 Margaret Holman [address] [place] [address] Cardiology 10/27/24 Herberth Stokes MD [address] [place] [address] Gastroenterology 10/27/24 Hilton Palacios MD 15 [facility], [address] [place] [address] Neurology 02/06/25 Aaron Pringle MD [address]rd [place] [address] General Surgery 03/07/25 Ronda Rodríguez [address] [place] [address] [address] [place] [address] Obstetrics and Gynecology 08/02/25 Pily Delaney Paint Roller Cover Machine SetterLandscape Supervisor 07/22/24 Elie Vicky [facility] Psychology 12/29/24 documented as of this encounter
--- OUTSIDE RECORDS SUMMARY | 2025-09-06 18:23 | XMS_ITS | Encounter Summary ---
Author Organization [employer] Address [address] [place] [address] Care Team Providers Care Roll Off Driver Name Role Phone Shereen Latham MD Primary Care Provider [phone] Encounter Details Date Type Department Care Team (Late st Contact Info) Description 09/06/2025 Telephone [facility] Hematology Oncology [address] [place] [address] Mouna Tobin [place] Social History Tobacco Use Types Packs/Day [...] documented in this encounter Progress Notes * Xenia Newby - 09/06/2025 11:50 AM EST Azra calls reporting she received a reminder call for an upcoming appt. Wanted to confirm where/who she is scheduled with. Informed her she is scheduled in the radiation dept. Appt details provided. documented in this encounter Plan of Treatment Upcoming Encounters Date Type Department Care Team (Late st Contact Info) Description 09/13/2025 12:00 PM EST Appointment [facility] Radiation Oncology [address] [place] [phone] 09/13/2025 1:00 PM EST Appointment [facility] Radiation Oncology [address] [place] [phone] Pal Ureña MD [address] [place] [address] 09/14/2025 3:00 PM EST Procedure visit Orthopedic Surgery - [place] [address] [phone] Antony Garrett DPM [address] [address] documented as of this encounter Visit Diagnoses Not on filedocumented in this encounter Care Teams Roll Off Driver Relationship Specialty Start Date End Date Shereen Latham MD [address] [place] [phone] PCP - General 01/13/1996 documented as of this encounter
--- OUTSIDE RECORDS SUMMARY | 2025-09-06 18:23 | XMS_ITS | Encounter Summary ---
Author Organization [employer] Address 75 [facility] 7 [place] [address] Care Team Providers Care Trimming Assembler Name Role Phone Shereen Latham MD Primary Care Provider [phone] Sury Benitez Unavailable [phone] Nirali Madrid OD Unavailable Li Grande MD Unavailable [phone] Anselmo Gates MD Unavailable Margaret Holman Unavailable Herberth Stokes MD Unavailable [phone] Hilton Palacios MD Unavailable Aaron Pringle MD Unavailable [phone] Ronda Rodríguez Unavailable Reason for Visit * Reason Onset Date Comments Referral 09/01/2025 Lab Orders 09/01/2025 Encounter Details Date Type Department Care Team (Late st Contact Info) Description 09/01/2025 Telephone [facility] MEDICINE [address] [place], [place] [phone] Shereen Latham MD 230 [place], [place] [phone] Referral; Lab Orders Social History Tobacco Use Types [...] Telephone Encounter - Cira Martinez RN - 09/05/2025 11:54 AM EST Return call placed to the pt to inform and advise that PCP place blood work orders to be done on totwo days prior to upcoming appointment next week on 09/13/2025. The pt stated understanding and hadno further questions at this time. * Telephone Encounter - Cira Martinez RN - 09/05/2025 11:18 AM EST Return call placed to the pt in regard to request for specific referrals and lab testing. The pt referenced recent ED visit on 08/25/2025 for CP, VIRAMONTES and resulting hypomagnesemia. The pt was given magnesium oxide 400 mg BID for three days time and also advised to have repeat labs including some thyroid testing. (Of note, pt had labs done in the ED and are viewable in pt chart 08/25/2025) Pt is aware she has upcoming appointment with PCP on 09/13/2025 and was requesting some repeat labs includingthyroid testing before appointment. Pt also requesting referrals to kidney and liver specialists but was advised that this can be discussed further at upcoming appointment with PCP. * Telephone Encounter - Cira Martinez RN - 09/04/2025 4:28 PM EST TC placed to the pt but the pt was at an appointment and could not take the call. Pt was advised that the office will call back tomorrow (09/04) in regard to message below * Telephone Encounter - Arabella Barrett - 09/01/2025 1:26 PM EDT Tc from pt requesting two referrals one to a chief informatics officer and another to a international operations manager. Pt also requesting lab orders and thyroid test before apt on 09/13 Contact pt at [phone] documented in this encounter Plan of Treatment Upcoming Encounters Date Type Department Care Team (Late st Contact Info) Description 09/13/2025 3:15 PM EST Office Visit [facility] MED[facility]INE [address] [place] [address] Shereen Latham MD [address] [place] [address] 10/02/2025 2:00 PM EST Office Visit [facility] ADULT DENTAL [address] [place] [address] Paz-Connor, Isa, DDS [address] [place] [address] documented as of this encounter Visit Diagnoses Not on filedocumented in this encounter Additional Health Concerns Assessment Noted Time PHQ-9 Depression Total Score: 21 025 11:03 AM EDT documented as of this encounter Care Teams Trimming Assembler Relationship Specialty Start Date End Date Shereen Latham MD [address] [place] [address] PCP - General Family Medicine 11/02/18 Sury Benitez [address] [place] [address] Dr [facility] 103 [place] [address] Pulmonary Disease 09/27/24 Nirali Madrid OD 267 [place] [address] Optometry 10/27/24 Li Grande MD [address] [place] [address] Hematology and Oncology 10/27/24 Anselmo Gates MD [address] [place] [address] Orthopaedic Surgery 10/27/24 Margaret Holman [address] 3rd [place] [address] Cardiology 10/27/24 Herberth Stokes MD 11 [facility] 3rd [place] [address] Gastroenterology 10/27/24 Hilton Palacios MD [address] [place] [address], [address] [place] [address] Neurology 02/06/25 Aaron Pringle MD [address] [place] [address] 3rd [place] [address] General Surgery 03/07/25 Ronda Rodríguez [address] [place] [address] [address] [place] [address] Obstetrics and Gynecology 08/02/25 Pily Delaney Computer AideHim Tech 07/22/24 Elie BRASHER [facility] Psychology 12/29/24 documented as of this encounter
--- OUTSIDE RECORDS SUMMARY | 2025-09-06 18:23 | XMS_ITS | Clinical Summary ---
Author Organization [facility] Address [address] [facility] [address] [place] [phone] Phone Care Team Providers Care Bus Girl Name Role Phone Unavailable Primary Care Provider [...]
--- OUTSIDE RECORDS SUMMARY | 2025-09-06 18:23 | XMS_ITS | Encounter Summary ---
Author Organization [employer] Address 75 [facility] 7 [place] [address] Care Team Providers Care Claims Technician Name Role Phone Shereen Latham MD Primary Care Provider [phone] Sury Benitez Unavailable [phone] Nirali Madrid OD Unavailable Li Grande MD Unavailable [phone] Anselmo Gates MD Unavailable Margaret Holman Unavailable Herberth Stokes MD Unavailable [phone] Hilton Palacios MD Unavailable [phone] Aaron Pringle MD Unavailable [phone] Ronda Rodríguez Unavailable [phone] Reason for Visit * Reason Onset Date Comments pt1 09/01/2025 Encounter Details Date Type Department Care Team (Late st Contact Info) Description 09/01/[address] [facility] MEDICINE [address] [place], [place] [phone] Shereen Latham MD 230 [place], [place] [phone] pt1 Social History Tobacco Use Types Packs/Day Years [...] encounter Miscellaneous Notes * Telephone Encounter - Arabella Barrett - 09/01/2025 1:22 PM EDT Patient calling requesting PT1 Home Address verified: Y/N: Yes Provider name or facility name: [facility] Escort needed: Y/N: No Do you have a wheelchair: Y/N: No If yes- Manual or electric: Visits: 5x a week for 4 weeks , when radiation starts Patient calling requesting PT1 Home Address verified: Y/N: Yes Provider name or facility name[place] [facility] [place] [place] [address] [facility] [address] Escort needed: Y/N: No Do you have a wheelchair: Y/N: No If yes- Manual or electric: Visits: 3x a month documented in this encounter Plan of Treatment Upcoming Encounters Date Type Department Care Team (Late st Contact Info) Description 09/13/2025 3:15 PM EST Office Visit [facility] MED[facility]INE [address] [place] [address] Shereen Latham MD [address] [place] [address] 10/02/2025 2:00 PM EST Office Visit [facility] ADULT DENTAL [address] [place] [address] Paz-ConnorIsa, DDS [address] [place] [address] documented as of this encounter Visit Diagnoses Not on filedocumented in this encounter Additional Health Concerns Assessment Noted Time PHQ-9 Depression Total Score: 21 025 11:03 AM EDT documented as of this encounter Care Teams Claims Technician Relationship Specialty Start Date End Date Shereen Latham MD [address] [place] [address] PCP - General Family Medicine 11/02/18 Sury Benitez [address] [place] [address] [place] [address] [place] [address] Pulmonary Disease 09/27/24 Nirali Madrid OD 267 [place] [address] Optometry 10/27/24 Li Grande MD [address] [place] [address] Hematology and Oncology 10/27/24 Anselmo Gates MD [address] [place] [address] Orthopaedic Surgery 10/27/24 Margaret Holman [address] [facility] [facility] [address]rd [place] [address] Cardiology 10/27/24 Herberth Stokes MD 11 [facility] 3rd [place] [address] Gastroenterology 10/27/24 Hilton Palacios MD 15 [facility], [address] [place] [address] Neurology 02/06/25 Aaron Pringle MD 11 [facility] 3rd [place] [address] General Surgery 03/07/25 Ronda Rodríguez [address] [place] [address] [address] [place] [address] Obstetrics and Gynecology 08/02/25 Pily Delaney Securities Vault SupervisorTow Driver 07/22/24 Elie Vicky [facility] Psychology 12/29/24 documented as of this encounter
--- OUTSIDE RECORDS SUMMARY | 2025-09-06 18:23 | XMS_ITS | Encounter Summary ---
Author Organization [employer] Address 75 [facility] 7t [place] [address] Care Team Providers Care Clinical Trial Manager Name Role Phone [place], Shereen NOLASCO Primary Care Provider [phone] Nupur Bullock PharmD Unavailable Sury Benitez Unavailable [phone] Julius, Nirali OD Unavailable Li Grande MD Unavailable [phone] Anselmo Gates MD Unavailable Margaret Holman Unavailable Herberth Stokes MD Unavailable [phone] Hilton Palacios MD Unavailable Aaron Pringle MD Unavailable [phone] Lori James Unavailable Neelima Raygoza Unavailable Ronda Rodríguez Unavailable Neelima Raygoza Unavailable Star Raygozada Unavailable Reason for Visit * Reason Comments Med Refill Encounter Details Date Type Department Care Team ([facility] st Contact Info) Description 01/17/2025 Refill [facility] MED & PEDS [address] [place] [address] Shereen Latham MD 230 [place] [address] Pain Social History Tobacco Use Types Packs/Day [...] 09/13/2025 3:15 PM EST Office Visit [facility] MEDICINE 230 [place] [address] Shereen Latham MD 230 [place] [address] 10/02/2025 2:00 PM EST Office Visit [facility] ADULT DENTAL 230 [place] [address] Isa De La Rosa DDS 230 [place] [address] documented as of this encounter Visit Diagnoses Diagnosis Pain Generalized pain documented in this encounter Additional Health Concerns Assessment Noted Time PHQ-9 Depression Total Score: 22 025 10:17 AM EST documented as of this encounter Care Teams Clinical Trial Manager Relationship Specialty Start Date End Date Shereen Latham MD 230 [place] [address] PCP - General Family Medicine 11/02/18 Nupur Bullock PharmD 230 [place] [address] Pharmacist Internal Medicine 08/09/24 05/15/25 Sury Benitez [address] [place] [address] [place] [address] [place] [address] Pulmonary Disease 09/27/24 Nirali Madrid OD [address] [place] [address] Optometry 10/27/24 Li Grande MD [address] [place] [address] Hematology and Oncology 10/27/24 Anselmo Gates MD [address] [facility] [address] [facility] [address] [place] [address] Orthopaedic Surgery 10/27/24 Margaret Holman 11 [facility] 3rd [place] [address] Cardiology 10/27/24 Herberth Stokes MD 11 [facility] 3rd [place] [address] Gastroenterology 10/27/24 Hilton Palacios MD 15 [facility], [address] [place] [address] Neurology 02/06/25 Aaron Pringle MD [address] [place] [address] 3rd [place] [address] General Surgery 03/07/25 Lori James Registered Nurse 06/15/25 06/15/25 Neelima Raygoza 06/15/25 06/16/25 Ronda Rodríguez [address] [place] [address] 215 [place] [address] Obstetrics and Gynecology 08/02/25 Neelima Raygoza 08/14/25 08/23/25 Neelima Raygoza 08/28/25 08/29/25 Pily Delaney Car Rental Sales AssistantResource Management Specialist 07/22/24 Elie Vicky [facility] Psychology 12/29/24 documented as of this encounter
--- OUTSIDE RECORDS SUMMARY | 2025-09-06 18:23 | XMS_ITS | Encounter Summary ---
Author Organization [employer] Address 75 [facility] 7t [place] [address] Care Team Providers Care Head Rose Grower Name Role Phone [place], Shereen NOLASCO Primary Care Provider [phone] Nupur Bullock PharmD Unavailable [phone] Sury Benitez Unavailable [phone] Julius, Nirali OD Unavailable Li Grande MD Unavailable [phone] Anselmo Gates MD Unavailable Margaret Holman Unavailable Herberth Stokes MD Unavailable [phone] Hilton Palacios MD Unavailable Aaron Pringle MD Unavailable [phone] Lori James Unavailable Neelima Raygoza Unavailable Ronda Rodríguez Unavailable Neelima Raygoza Unavailable Neelima Raygoza Unavailable Reason for Referral * Consultation (Routine) - Closed Specialty Diagnoses / Procedures Referred By Contac t Referred To Contact Obstetrics and Gynecology Diagnoses Women's annual routine gynecological examination Stacey Khan MD 230 [place] [address] Phone: tel: fax: [facility] [address] 5th [address] (Main Hospital Entrance) AGUILA Sierra Phone: tel: fax: Referral ID Status Reason Start Date Expiration Date V isits Requested Visits Authorized [id number] Closed Specialty Services Required 01/19/2025 01/19/2026 9 9 Encounter Details Date Type Department Care Team (Late st Contact Info) Description 01/19/2025 Orders Only [facility] MEDICINE [facility] [place] [address] Stacey Khan MD 230 [place] [address] Women's annual routine gynecological examination (Primary Dx) [...] Office Visit [facility] MEDICINE [address] [place] [address] Shereen Latham MD 230 [place] [address] 10/02/2025 2:00 PM EST Office Visit [facility] ADULT DENTAL [address] [place] [address] Isa De La Rosa, DDS 230 [place] [address] Scheduled Referrals Name Type Priority Associated Diagnoses [...] Sensitivity Troponin I (01/19/2025 4:33 PM EDT) [facility] TROPONIN I HIGH SENSITIVITY 7.8 <3.5 - 17.0 ng/L [facility] Comment:The Henriquez high sens itivity Troponin-I results should beused in conjunction with other diagnostic information suchas ECG, clinical observations and information, and patientsymptoms to aid in the diagnosis of IL. 01/19/2025 4:33 PM EDT 01/19/2025 4:34 PM EDT Generic External Data Provider LAB BLOOD ORDERAB LES Final Result Performing Organization Address [facility] Co de Phone Number [facility] [address] [place] [phone] * B Type Natriuretic Peptide (BNP) (01/19/2025 4:33 PM EDT) [facility] B Type Natriuretic Peptide 22 <100 pg/mL [facility] 01/19/2025 4:33 PM EDT 01/19/2025 4:34 PM EDT Generic External Data Provider LAB BLOOD ORDERAB LES Final Result Performing Organization Address [facility] Co de Phone Number [facility] [address] [place] [phone] * D Dimer High Sensitivity (01/19/2025 4:33 PM EDT) [facility] D Dimer High Sensitivity <150 NG/ML [facility] Comment:D-DIMER HS REFERENCE RANGENote: Our [...] Provider LAB BLOOD ORDERAB LES Final Result [facility] [address] [place] [phone] [phone] documented in this encounter Visit Diagnoses Diagnosis Women's annual routine gynecological examination- Primary documented in this encounter Additional Health Concerns Assessment Noted Time PHQ-9 Depression Total Score: 22 025 10:17 AM EST documented as of this encounter Care Teams Head Rose Grower Relationship Specialty Start Date End Date Shereen Latham MD 230 [place] [address] PCP - General Family Medicine 11/02/18 Nupur Bullock PharmD [address] [place] [address] Pharmacist Internal Medicine 08/09/24 05/15/25 Sury Benitez [address] [place] [address] Dr [facility] 103 [place] [address] Pulmonary Disease 09/27/24 Nirali Madrid OD [address] [place] [address] Optometry 10/27/24 Li Grande MD [address] [place] [address] Hematology and Oncology 10/27/24 Anselmo Gates MD [address] [place] [address] Orthopaedic Surgery 10/27/24 Margaret Holman [address] 3rd [place] [address] Cardiology 10/27/24 Herberth Stokes MD [address] [place] [address] Gastroenterology 10/27/24 Hilton Palacios MD [address] [place] [address], [address] [place] [address] Neurology 02/06/25 Aaron Pringle MD [address] [place] [address] General Surgery 03/07/25 Lori James Registered Nurse 06/15/25 06/15/25 Neelima Raygoza 06/15/25 06/16/25 Ronda Rodríguez [address] [place] [address] [address] [place] [address] Obstetrics and Gynecology 08/02/25 Neelima Raygoza 08/14/25 08/23/25 Neelima Raygoza 08/28/25 08/29/25 Pily Delaney Maintenance PlumberTechnical Solutions Director 07/22/24 Elie Vicky [facility] Psychology 12/29/24 documented as of this encounter
--- OUTSIDE RECORDS SUMMARY | 2025-09-06 18:23 | XMS_ITS | Encounter Summary ---
Author Organization [employer] Address [address] [place] [address] 7 [place] [address] Care Team Providers Care Enthone Solder Stripper Name Role Phone [place], Shereen NOLASCO Primary Care Provider [phone] Sury Benitez Unavailable [phone] Nirali Madrid OD Unavailable Li Grande MD Unavailable Anselmo Gates MD Unavailable Margaret Holman Unavailable Herberth Stokes MD Unavailable [phone] Hliton Palacios MD Unavailable [phone] Aaron Pringle MD Unavailable [phone] Ronda Rodríguez Unavailable Neelima Raygoza Unavailable Neelima Raygoza Unavailable Reason for Visit * Reason Onset Date Comments rs no show appt 08/15/2025 Encounter Details Date Type Department Care Team (Late st Contact Info) Description 08/15/2025 Telephone [facility] ADULT DENTAL [address] [place] [address] Isa De La Rosa DDS [address] [place] [address] rs no show appt Social History Tobacco [...] the past 12 months, has t he [employer], gas, oil or water [employer] threatened to shut off services in your [...] Miscellaneous Notes * Telephone Encounter - Bebe Mosies - 08/15/2025 8:49 AM EDT Patient called into rs a no show appointment. Patient has been informed there is a waiting period prior to rs a no show appointment and that office will reach out. Patient understood. DR documented in this encounter Plan of Treatment Upcoming Encounters Date Type Department Care Team (Late st Contact Info) Description 09/13/2025 3:15 PM EST Office Visit [facility] [address] [place] [address] Shereen Latham MD 230 [place] [address] 10/02/2025 2:00 PM EST Office Visit [facility] ADULT DENTAL [address] [place] [address] Isa De La Rosa, DDS [address] [place] [address] documented as of this encounter Visit Diagnoses Not on filedocumented in this encounter Additional Health Concerns Assessment Noted Time PHQ-9 Depression Total Score: 21 025 11:03 AM EDT documented as of this encounter Care Teams Enthone Solder Stripper Relationship Specialty Start Date End Date Shereen Latham MD 230 [place] [address] PCP - General Family Medicine 11/02/18 Sury Benitez [address] [place] [address] [place] [address] Pulmonary Disease 09/27/24 Nirali Madrid OD [address] [place] [address] Optometry 10/27/24 Li Grande MD 575 [place] [address] Hematology and Oncology 10/27/24 Anselmo Gates MD [address] [place] [address] Orthopaedic Surgery 10/27/24 Margaret Holman 11 [facility] 3rd [place] [address] Cardiology 10/27/24 Herberth Stokes MD 11 [facility] 3rd [place] [address] Gastroenterology 10/27/24 Hilton Palacios MD 15 [facility], [address] [place] [address] Neurology 02/06/25 Aaron Pringle MD 11 [facility] 3rd [place] [address] General Surgery 03/07/25 Ronda Rodríguez [address] [place] [address] 215 [place] [address] Obstetrics and Gynecology 08/02/25 Neelima Raygoza 08/14/25 08/23/25 Neelima Raygoza 08/28/25 08/29/25 Pily Delaney Roll HandlerNegative Cutter 07/22/24 Elie Vicky [facility] Psychology 12/29/24 documented as of this encounter
== END 2025-09-06 16:02 | disposition home or self-care (01) ==
LOC: HO.HGI 15:31
PROVIDERS: PCP Family Medicine; Visit Provider Nurse Practitioner Family
DX: K60.2 Anal fissure, unspecified (principal); K64.9 Unspecified hemorrhoids; K58.2 Mixed irritable bowel syndrome; R14.0 Abdominal distension (gaseous); K59.01 Slow transit constipation; K59.1 Functional diarrhea
CPT/HCPCS: 99213

== ENCOUNTER 2025-09-06 16:20 | Outpatient (REF) | payer MEDICAID, SELFPAY ==
--- NOTE | ~2025-09-06 | CT_ITS ---
EXAMINATION: CT CHEST WITHOUT IV CONTRAST INDICATION: R91.8 - Other nonspecific abnormal finding of lung field COMPARISON: Previous chest x-ray most recent June [address] most recent October 2024 TECHNIQUE: Helical CT scan of the chest was performed without intravenous contrast. Coronal and sagittal reformatted images were generated and reviewed. This CT exam was performed with one or more of the following dose reduction techniques: automated exposure control, adjustment of the mA and/or kV according to patient size, use of iterative reconstruction technique. DLP: 321 mGy-cm CHEST: THYROID: The thyroid is unremarkable. LUNGS: There is severe right middle lobe atelectasis/almost complete collapse. There is a right middle lobe bronchial wall thickening and cicatrization bronchiectasis. This appears slightly increased from most recent October 2024 exam. Previously seen 4.5 mm right middle lobe nodule adjacent to the major fissure on October 2024 exam is not definitely appreciated on axial imaging. This is stable on sagittal and coronal reconstructed images 68 series 7 and 24 series 6 and unchanged. Other small micronodules are stable, largest a 3 mm peripheral or subpleural right upper lobe nodule adjacent to the mediastinum axial image 71 series 5.. No new or increasing pulmonary nodules. Central airways are clear. MEDIASTINUM: There are small mediastinal lymph nodes. No enlarged lymph nodes. DANELLE: Evaluation of the hilar regions is limited by lack of intravenous contrast material. CARDIOVASCULATURE: The heart is normal in size. There is a small pericardial effusion. This is slightly increased from October 2024 exam. The thoracic aorta is normal in caliber. DEGREE OF CORONARY CALCIFICATION: mild PLEURA: There is no pleural effusion. No pneumothorax. MAIN AIRWAYS: The mainstem bronchi and proximal branches are patent. AXILLA: Surgical changes following right mastectomy, implant similar and surgical clips in the right axilla to previous exam New postsurgical changes to the left breast. New clip in the lower outer quadrant of the left breast, 0.8 x 3.4 cm density, surrounding fat stranding and skin thickening, question posttreatment changes. No axillary internal mammary or supraclavicular adenopathy. BONES AND SOFT TISSUES: Degenerative changes of the spine. Small sclerotic density in the right T6 vertebral body unchanged. UPPER ABDOMEN: The visualized portions of the liver, spleen, and adrenals have an unremarkable unenhanced appearance. CT/CT chest wo IV con IMPRESSION: Slight interval increase in now near complete right middle lobe atelectasis. There is right middle lobe bronchial wall thickening and cicatrization bronchiectasis similar to previous exam. Stable pulmonary nodules, largest measuring 5 mm in the right middle lobe. No new or increasing pulmonary nodule. Small pericardial effusion slightly increased in size from previous exam. New postsurgical changes to the left breast. Electronically signed by: Chandrika Garg MD 09/06/2025 05:23 PM [facility]
== END 2025-09-06 16:21 | disposition home or self-care (01) ==
LOC: HO.CT 16:20
PROVIDERS: PCP Family Medicine; Visit Provider Nurse Practitioner Family
DX: R91.8 Other nonspecific abnormal finding of lung field (principal)
CPT/HCPCS: 71250; 99212

== ENCOUNTER → 2025-09-06 16:22 | Outpatient (BNV) | payer MEDICAID, SELFPAY | PROVIDERS: PCP Family Medicine; Visit Provider Radiology Diagnostic Radiology | DX: J98.11 Atelectasis (principal); J47.9 Bronchiectasis, uncomplicated; R91.8 Other nonspecific abnormal finding of lung field; I31.39 Other pericardial effusion (noninflammatory) | CPT/HCPCS: 71250 ==

== ENCOUNTER 2025-09-07 15:41 | Outpatient (REF) | payer MEDICAID, SELFPAY ==
[2025-09-07 17:37] LABS: MANUAL DIFF FLAG NO
[2025-09-07 17:46] LABS: Hematocrit 34.0 % (37.0-47.0); Hemoglobin 10.9 g/dl (12.0-16.0); Imm Gran Abs Auto 0.04 X10*3/uL (0.00-0.03); Imm Gran Pct Auto 0.4 % (0.0-0.4); Lymphocytes Absolute Auto 3.3 X10*3/uL (1.2-4.9); Mean Corpuscular HGB Conc 32.1 g/dl (31.0-35.0); Mean Corpuscular Hemoglobin 28.0 pg (27.0-33.0); Mean Corpuscular Volume 87.4 fL (80.0-98.0); NRBC Abs Auto 0.000 X10*3/uL (0.0-0.012); NRBC Pct Auto 0.0 /100WBC (0.0-0.2); Platelet Count 316 X10*3/uL (160-400); Red Blood Count 3.89 X10*6/uL (4.20-5.50); White Blood Count 9.6 X10*3/uL (4.8-10.8)
[2025-09-07 18:00] LABS: NT Pro B Type Natriuretic Pept 516.7 pg/mL (<300)
[2025-09-07 18:07] LABS: Alanine Aminotransferase 17 U/L (0-31); Albumin Level 4.3 g/dL (3.5-5.0); Alkaline Phosphatase 135 U/L (39-117); Anion Gap 15 (12-20); Aspartate Amino Transferase 23 U/L (5-31); Blood Urea Nitrogen 19 mg/dL (9-16); Calcium 9.3 mg/dL (8.4-10.2); Carbon Dioxide 24 mmol/L (22-29); Chloride 108 mmol/L (96-108); Estimated Glomerular Filt Rate > 60; Magnesium 1.6 mg/dL (1.6-2.6); Potassium 3.7 mmol/L (3.3-5.1); Sodium 143 mmol/L (135-145); Total Protein 7.2 g/dL (6.5-8.0)
--- OUTSIDE RECORDS SUMMARY | 2025-09-07 18:28 | XMS_ITS | Encounter Summary ---
Author Organization [employer] Address [address] [place] [address] 7 [place] [address] Care Team Providers Care Hand Cloth Folder Name Role Phone [place], Shereen NOLASCO Primary Care Provider [phone] Nupur Bullock PharmD Unavailable [phone] Sury Benitez Unavailable [phone] JuliusNirali castellanos OD Unavailable Li Grande MD Unavailable [phone] Anselmo Gates MD Unavailable Margaret Holman Unavailable Herberth Stokes MD Unavailable [phone] Hilton Palacios MD Unavailable Aaron Pringle MD Unavailable Lori James Unavailable Neelima Raygoza Unavailable Ronda Rodríguez Unavailable Neelima Raygoza Unavailable Neelima Raygoza Unavailable Encounter Details Date Type Department Care Team (Late st Contact Info) Description 04/26/2024 Orders Only [facility] MEDICINE [address] [place] [address] Junie Damon MD [address] [place] [address] Social History Tobacco Use Types Packs/Day Years [...] EST Office Visit [facility] MEDICINE [address] [place] [address] Shereen Latham MD [address] [place] [address] 10/02/2025 2:00 PM EST Office Visit [facility] ADULT DENTAL [address] [place] [address] Paz-Connor, Isa, DDS [address] [place] [address] documented as of this encounter Visit Diagnoses Not on filedocumented in this encounter Additional Health Concerns Assessment Noted Time PHQ-9 Depression Total Score: 23 024 1:45 PM EDT documented as of this encounter Care Teams Hand Cloth Folder Relationship Specialty Start Date End Date Shereen Latham MD [address] [place] [address] PCP - General Family Medicine 11/02/18 Nupur Bullock PharmD [address] [place] [phone] Pharmacist Internal Medicine 08/09/24 05/15/25 Sury Benitez [address] [place] [address] Pulmonary Disease 09/27/24 Nirali Madrid OD [address] [place] [address] Optometry 10/27/24 Li Grande MD [address] [place] [address] Hematology and Oncology 10/27/24 Anselmo Gates MD [address] [place] [address] Orthopaedic Surgery 10/27/24 Margaret Holman [address]rd [place] [address] Cardiology 10/27/24 Herberth Stokes MD [address]rd [place] [address] Gastroenterology 10/27/24 Hilton Palacios MD [address] [place] [address] Neurology 02/06/25 Aaron Pringle MD [address]rd [place] [address] General Surgery 03/07/25 Lori James Registered Nurse 06/15/25 06/15/25 Neelima Raygoza 06/15/25 06/16/25 Ronda Rodríguez [address] [place] [address] [address] [place] [address] Obstetrics and Gynecology 08/02/25 Neelima Raygoza 08/14/25 08/23/25 Neelima Raygoza 08/28/25 08/29/25 Pily Delaney DrainlayerRadar Engineering Teacher 07/22/24 Elie Vicky [facility] Psychology 12/29/24 documented as of this encounter
--- OUTSIDE RECORDS SUMMARY | 2025-09-07 18:28 | XMS_ITS | Encounter Summary ---
Author Organization [employer] Address [address] [place] [address] 7 [place] [address] Care Team Providers Care Software Designer Name Role Phone [place], Shereen NOLASCO Primary Care Provider [phone] Nupur Bullock PharmD Unavailable Sury Benitez Unavailable [phone] JuliusNirali castellanos OD Unavailable Li Grande MD Unavailable [phone] Anselmo Gates MD Unavailable Margaret Holman Unavailable Herberth Stokes MD Unavailable [phone] Hilton Palacios MD Unavailable Aaron Pringle MD Unavailable [phone] Lori James Unavailable Neelima Raygoza Unavailable Ronda Rodríguez Unavailable Neelima Raygoza Unavailable Neelima Raygoza Unavailable Reason for Visit * Reason Onset Date Comments Nurse Triage 05/25/2024 Encounter Details Date Type Department Care Team (Late st Contact Info) Description 05/25/2024 Telephone [facility] MEDICINE [address] [place] [address] Shereen Latham MD [address] [place] [address] Nurse Triage Social History Tobacco Use Types [...] . Pt reports Pt was seen in [facility] 05/11/24 for continued leftfoot pain and Pt was seen by facilities maintenance manager, Leta Lunsford MD 05/11/24 also (report is on the chart). Pt had been advised to stop BP med chlorthalidone per facilities maintenance manager [facility] because that particular medication is [...] anxiety. Pt is advised to come to [facility] today , open till 8pm, to [...] 3:15 PM EST Office Visit [facility] MEDICINE [address] [place] [address] Shereen Latham MD [address] [place] [address] 10/02/2025 2:00 PM EST Office Visit [facility] ADULT DENTAL [address] [place] [address] Brandi-ConnorIsa abarca, DDS [address] [place] [address] documented as of this encounter Visit Diagnoses Not on filedocumented in this encounter Additional Health Concerns Assessment Noted Time PHQ-9 Depression Total Score: 22 024 9:12 AM EDT documented as of this encounter Care Teams Software Designer Relationship Specialty Start Date End Date Shereen Latham MD [address] [place] [address] PCP - General Family Medicine 11/02/18 Nupur Bullock, CharleneD [address] [place] [address] Pharmacist Internal Medicine 08/09/24 05/15/25 Sury Benitez [address] [place] [address] [place] [address] Pulmonary Disease 09/27/24 Nirali Madrid OD [address] [place] [address] Optometry 10/27/24 Li Grande MD [address] [place] [address] Hematology and Oncology 10/27/24 Anselmo Gates MD [address] [place] [address] Orthopaedic Surgery 10/27/24 Margaret Holman [address] [place] [address] Cardiology 10/27/24 Herberth Stokes MD [address] [facility] [address] [place] [address] Gastroenterology 10/27/24 Hilton Palacios MD [address] [facility] [place] [address] Neurology 02/06/25 Aaron Pringle MD [address] [facility] [address] [place] [address] General Surgery 03/07/25 Lori James Registered Nurse 06/15/25 06/15/25 Neelima Raygoza 06/15/25 06/16/25 Ronda Rodríguez [address] [place] [address] [address] [place] [address] Obstetrics and Gynecology 08/02/25 Neelima Raygoza 08/14/25 08/23/25 Neelima Raygoza 08/28/25 08/29/25 Pily Delaney Certified Performance TechnologistSign Hanger 07/22/24 Elie BRASHER [facility] 12/29/24 documented as of this encounter
--- OUTSIDE RECORDS SUMMARY | 2025-09-07 18:28 | XMS_ITS | Clinical Summary ---
Author Organization [facility] Address [address] [place] [address] Phone Care Team Providers Care Director Epidemiology Name Role Phone Shereen Latham MD Primary Care Provider [phone] Allergies Active Allergy Reactions Criticality Noted Date [...] being evaluated for tachycardia and has a monitor and storage bin tender in place. I recommended a left breast [...] 04/21/24 with uric acid 7.9 -Seen by bow maker machine tender Dr. Bernstein 05/11/24 or evaluation of acute gout affecting left foot. -Pt admitted 07/25/24-07/2524 for swelling, pain, and warmth in the right knee. Patient had a low fever (100.3 F) and elevated WBC (43968 cells/uL), CRP, and ESR. Orthopedic surgery consulted [...] daily for prophylaxis -Seen by Dr. Clarke bow maker machine tender 04/19/25 Continue allopurinol 200 mg daily, plan [...] failure with reduced EF during admission to [facility] 06/22/24. - She was started on [...] effusion and indeterminate diastolic function -Seen by [facility] Cardiology 08/01/24 : exercise nuclear stress [...] again until 07/2024. Last echo 06/23/2024 during [facility] heart failure admission, showed EF 55-60%, small [...] for transfusion - Iron infusions ordered by Railroad Signal Operator DR. Grande - She recieved two [...] psychological clearance. Stage 3 chronic kidney disease ([facility] V24, [facility] V28) 07/20/2023 Pain in both feet 07/14/2023 [...] had ultrasound sound for abdominal pain at [facility] revealing diffusely echogenic parenchyma with [...] spironolactone (Aldactone) 25 MG tablet 11/09/24 -06/20/25 meat stocker held spironolactone Alcohol use disorder, modera te, dependence (CMS/HCC V24, CMS/HCC V28) 12/12/2021 Overview (08/25/2025): Longstanding, severe olesya drinking with hx admissions and withdrawal. Care complicated by difficulty accepting/comprehending risk. We have many times discussed risks including liver damage, liver failure and the risk of dying if she continues to drink. At times she has been referred [facility] but has [...] subsequently declined -Admitted for alcohol detox at [facility] 04/09/24 -reports she is currently not [...] type, invasive tumor 2.2 cm ER positive, OH positive, HER-2/RON negative, two sentinel nodes negative. -S/p RIGHT mastectomy with sentinel node bx by [facility]. [facility] -Adriamycin/Cytoxan based chemotherapy started Oct, [...] being evaluated for tachycardia and has a monitor and storage bin tender in place. I recommended a left breast [...] Dr. 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 Per Dr. Krish Loomis's note from [facility] DIETITIAN ASSISTANT, pt was due for repeat colposcopy in 2011. -Total Vaginal Hysterectomy 08/27/17 ('with MONICA 2 pathology and negative resection margins'). Per note dated 11/27/17 Dr. Reyes; 'patient to discontinue PAP screening'. -Vaginal pap NILM HPV negative 08/2018, per not no further paps indicated Severe episode of recurrent major depressive disorder, with psychotic features ([facility] V24, [facility] V28) 04/19/2014 Overview (08/25/2025): -has therapist in [...] [facility] smoking cessation group, and [facility] pharmacy smoking cessation clinic Discussed [...] Type Department Care Team Description 09/06/2025 Telephone [facility] Hematology Oncology [address] [place] [phone] Mouna Tobin AL 08/31/2025 11:56 AM EDT - 08/31/2025 11:59 PM EDT Hospital Encounter [facility] Radiation Oncology [address] [place] [phone] Pal Ureña MD Malignant neoplasm of upper-outer quadrant of left breast in female, estrogen receptor positive (CMS/[facility] V24, CMS/HCC V28) (Primary Dx) Discharge Disposition: Home or Self Care 08/31/2025 11:56 AM EDT - 08/31/2025 11:59 PM EDT Hospital Encounter [facility] Radiation Oncology [address] [place] [phone] Discharge Disposition: Home or Self Care 08/24/2025 1:00 PM EDT Consult Orthopedic Surgery - [place] [address] [phone] Antony Garrett, DPWilmar Pain in both feet (Primary Dx); Lumbosacral radiculopathy; Metatarsalgia of left foot; Ingrown right big toenail 08/24/2025 Telephone [facility] Radiation Oncology [address] [place] [phone] Micheline Sosa AL 08/13/2025 2:30 PM EDT - 08/13/2025 7:19 PM EDT Emergency [facility] Emergency [address] [place] [phone] Lawrence Han MD Chest pain, unspecified type (Primary Dx); Shortness of breath Discharge Disposition: Left Against Medical Advice 08/10/2025 Telephone [facility] Radiation Oncology [address] [place] [phone] Micheline Sosa MA from Last 3 Months Medical History Medical History Date Comments CHF (congestive heart failure) ([facility] V24, [facility] V28) Hypertension Anxiety Depression Social History Tobacco [...] Info) Description 09/13/2025 12:00 PM EST Appointment [facility] Radiation Oncology [address] [place] [phone] 09/13/2025 1:00 PM EST Appointment [facility] Radiation Oncology [address] [place] [phone] Pal Ureña MD [address] [place] [address] 09/14/2025 3:00 PM EST Procedure visit Orthopedic Surgery - [place] [address] [phone] Antony Garrett, SHARA [address] [address] Health Maintenance Due Date Last Done Comments [...] Signed Date: 08/13/2025 16:29 ET Workstation ID: [id number] Transcribed By: Self Edit Transcribed Date: 08/13/2025 [...] Signed Date: 08/13/2025 16:29 ET Workstation ID: [id number] Transcribed By: Self Edit Transcribed Date: 08/13/2025 16:27 ET us Lawrence Han MD IMG XR PROCEDURES Final Result * Urinalysis with reflex microscopic (08/13/2025 3:50 PM EDT) Specific [place] Urine 1.017 1.003 - 1.030 LAB URINALYSIS - AUTOMATED METHOD 08/13/2025 4:17 PM [facility] pH, Urine 6.0 5.0 - 8.0 pH LAB URINALYSIS - AUTOMATED METHOD 08/13/2025 4:17 PM [facility] Leukocytes, Urine Negative Negative LAB URINALYSIS - AUTOMATED METHOD 08/13/2025 4:17 PM [facility] Nitrite, Urine Negative Negative LAB URINALYSIS - AUTOMATED METHOD 08/13/2025 4:17 PM [facility] Protein, Urine Negative <=Trace mg/dL LAB URINALYSIS - AUTOMATED METHOD 08/13/2025 4:17 PM [facility] Glucose, Urine Negative Negative mg/dL LAB URINALYSIS - AUTOMATED METHOD 08/13/2025 4:17 PM [facility] Ketones, Urine Negative Negative mg/dL LAB URINALYSIS - AUTOMATED METHOD 08/13/2025 4:17 PM [facility] Urobilinogen, Urine 0.2 0.2 - 1.0 mg/dL LAB URINALYSIS - AUTOMATED METHOD 08/13/2025 4:17 PM [facility] Bilirubin, Urine Negative Negative LAB URINALYSIS - AUTOMATED METHOD 08/13/2025 4:17 PM EDT [facility] Blood, Urine Negative Negative LAB URINALYSIS - AUTOMATED METHOD 08/13/2025 4:17 PM EDT [facility] Urine Urine specimen obtained by clean catch procedure / Unknown Non-blood Collection / Unknown 08/13/2025 3:50 PM EDT 08/13/2025 3:59 PM EDT us Lawrence Han MD LAB URINE ORDERABLES Final Resul t [facility] [address] [place] [address], [place] [phone] * (ABNORMAL) Drug abuse screen 8a panel, urine (08/13/2025 3:50 PM EDT) Amphetamine Screen, Ur Negative Negative LAB CHEMISTRY METHOD 5 4:38 PM EDT [facility] Comment:Certain OTC medicati ons containing ephedrine, phenylephrine, pseudoephedrine and phenylpropanolamine can cause false positive results. Barbiturate Screen, Ur Negative Negative LAB CHEMISTRY METHOD 5 4:38 PM EDT [facility] Benzodiazepine Screen, Ur Negative Negative LAB CHEMISTRY METHOD 5 4:38 PM EDT [facility] Cocaine Screen, Ur Negative Negative LAB CHEMISTRY METHOD 5 4:38 PM EDT [facility] Opiate Screen, Ur Positive(A ) Negative LAB CHEMISTRY METHOD 5 4:38 PM T [facility] Cannabinoid (THC) Screen, Ur Negative Negative LAB CHEMISTRY METHOD 5 4:38 PM T [facility] Comment:Specimens from patie nts taking pantoprazole sodium (Protonix) have been shown to produce false positive results. Oxycodone Screen, Ur Positive(A ) Negative LAB CHEMISTRY METHOD 5 4:38 PM EDT [facility] Fentanyl, Ur Negative Negative LAB CHEMISTRY METHOD 4:38 PM EDT [facility] Urine Urine specimen obtained by clean catch procedure / Unknown Non-blood Collection / Unknown 08/13/2025 3:50 PM EDT 08/13/2025 3:59 PM EDT Narrative [facility] - 08/13/2025 4:38 PM EDT [...] ORDERABLES Final Resul t Performing Organization Address City/[facility]/ZIP Co de Phone Number [facility] [address] [place] [address], [place] [phone] * Troponin I high sensitivity (08/13/2025 3:43 PM EDT) [facility] High Sensitivity Troponin I 20 <=54 ng/L LAB CHEMISTRY METHOD 08/13/2025 4:42 PM EDT [facility] Blood Venous blood specimen / Unknown Venipuncture / Unknown 08/13/2025 3:43 PM EDT 08/13/2025 3:59 PM EDT Narrative [facility] - 08/13/2025 4:42 PM EDT High levels of biotin in samples may falsely decrease hsTroponin values. Use caution when interpreting hsTroponin results in patients taking biotin who exhibit renal impairment (eGFR <60) or in patients taking more than 20 mg/day of biotin. Lawrence Han MD LAB BLOOD ORDERABLES Final Resul t [facility] [address] [place] [address], * (ABNORMAL) CBC auto differential (08/13/2025 3:43 PM EDT) [facility] WBC 10.6 4.8 - 10.8 K/mcL LAB HEMETOLOGY METHOD 08/13/2025 4:08 PM EDT [facility] RBC 3.70(L) 3.80 - 4.80 M/mcL LAB HEMETOLOGY METHOD 08/13/2025 4:08 PM EDT [facility] Hemoglobin 10.6(L) 11.5 - 16.0 g/dL LAB HEMETOLOGY METHOD 08/13/2025 4:08 PM EDT [facility] Hematocrit 33.0(L) 35.0 - 47.0 % LAB HEMETOLOGY METHOD 08/13/2025 4:08 PM EDT [facility] MCV 88.7 79.0 - 98.0 FL LAB HEMETOLOGY METHOD 08/13/2025 4:08 PM EDT [facility] MCH 28.5 27.0 - 32.0 pcg LAB HEMETOLOGY METHOD 08/13/2025 4:08 PM EDT [facility] MCHC 32.1 32.0 - 37.0 g/dL LAB HEMETOLOGY METHOD 08/13/2025 4:08 PM EDT [facility] RDW 14.6 11.0 - 15.0 % LAB HEMETOLOGY METHOD 08/13/2025 4:08 PM EDT [facility] Platelets 263 130 - 400 K/mcL LAB HEMETOLOGY METHOD 08/13/2025 4:08 PM EDT [facility] MPV 10.7 7.0 - 11.0 FL LAB HEMETOLOGY METHOD 08/13/2025 4:08 PM EDT [facility] NRBC 0.0 <1.0 % LAB HEMETOLOGY METHOD 08/13/2025 4:08 PM [facility] NRBC Absolute 0.00 <0.10 K/mcL LAB HEMETOLOGY METHOD 08/13/2025 4:08 PM [facility] Neutrophils Relative 60.6 % LAB HEMETOLOGY METHOD 08/13/2025 4:08 PM [facility] Lymphocytes Relative 29.5 % LAB HEMETOLOGY METHOD 08/13/2025 4:08 PM [facility] Monocytes Relative 6.2 % LAB HEMETOLOGY METHOD 08/13/2025 4:08 PM [facility] Eosinophils Relative 2.8 % LAB HEMETOLOGY METHOD 08/13/2025 4:08 PM [facility] Basophils Relative 0.6 % LAB HEMETOLOGY METHOD 08/13/2025 4:08 PM [facility] Immature Granulocytes Relative 0.3 % LAB HEMETOLOGY METHOD 08/13/2025 4:08 PM [facility] Neutrophils Absolute 6.45 1.50 - 7.00 K/mcL LAB HEMETOLOGY METHOD 08/13/2025 4:08 PM [facility] Lymphocytes Absolute 3.14 1.00 - 5.00 K/mcL LAB HEMETOLOGY METHOD 08/13/2025 4:08 PM [facility] Monocytes Absolute 0.66 0.20 - 1.00 K/mcL LAB HEMETOLOGY METHOD 08/13/2025 4:08 PM [facility] Eosinophils Absolute 0.30 0.00 - 0.50 K/mcL LAB HEMETOLOGY METHOD 08/13/2025 4:08 PM [facility] Basophils Absolute 0.06 0.00 - 0.20 K/mcL LAB HEMETOLOGY METHOD 08/13/2025 4:08 PM [facility] Immature Granulocytes Absolute 0.03 0.00 - 0.03 K/mcL LAB HEMETOLOGY METHOD 08/13/2025 4:08 PM EDT [facility] Blood Venous blood specimen / Unknown Venipuncture / Unknown 08/13/2025 3:43 PM EDT 08/13/2025 3:58 PM EDT us Lawrence Han MD LAB BLOOD ORDERABLES Final Resul t Performing Organization Address City/[facility]/ZIP Co de Phone Number [facility] [address] [place] [address], [place] [phone] * APTT (08/13/2025 3:43 PM EDT) aPTT 32.6 24.1 - 39.3 sec LAB COAGULATION METHOD 08/13/2025 4:19 PM EDT [facility] Blood Venous blood specimen / Unknown Venipuncture / Unknown 08/13/2025 3:43 PM EDT 08/13/2025 3:58 PM EDT us Lawrence Han MD LAB BLOOD ORDERABLES Final Resul t Performing Organization Address City/[facility]/ZIP Co de Phone Number [facility] [address] [place] [address], [place] [phone] * Protime-INR (08/13/2025 3:43 PM EDT) Protime 11.4 10.6 - 13.9 sec LAB COAGULATION METHOD 08/13/2025 4:19 PM EDT [facility] INR 0.9 LAB COAGULATION METHOD 08/13/2025 4:19 PM EDT [facility] Blood Venous blood specimen / Unknown Venipuncture / Unknown 08/13/2025 3:43 PM EDT 08/13/2025 3:58 PM EDT us Lawrence Han MD LAB BLOOD ORDERABLES Final Resul t Performing Organization Address [facility]/ZIP Co de Phone Number [facility] [address] [place] [address], [place] [phone] * hCG Qualitative (08/13/2025 3:43 PM EDT) [facility] hCG Qual Negative Negative 08/13/2025 4:46 PM EDT [facility] Blood Venous blood specimen / Unknown Venipuncture / Unknown 08/13/2025 3:43 PM EDT 08/13/2025 3:58 PM EDT us Lawrence Han MD LAB BLOOD ORDERABLES Final Resul t Performing Organization Address [facility] de Phone Number [facility] [address] [place] [address], [place] [phone] * B-type natriuretic peptide (08/13/2025 3:43 PM EDT) [facility] BNP 42 <=100 pcg/mL LAB CHEMISTRY METHOD 08/13/2025 4:37 PM EDT [facility] Blood Venous blood specimen / Unknown Venipuncture / Unknown 08/13/2025 3:43 PM EDT 08/13/2025 3:59 PM EDT us Lawrence Han MD LAB BLOOD ORDERABLES Final Resul t Performing Organization Address [facility]/ZIP Co de Phone Number [facility] [address] [place] [address], [place] [phone] * (ABNORMAL) Magnesium (08/13/2025 3:43 PM EDT) [facility] Magnesium 1.4(L) 1.9 - 2.6 mg/dL LAB CHEMISTRY METHOD 08/13/2025 4:35 PM EDT [facility] Blood Venous blood specimen / Unknown Venipuncture / Unknown 08/13/2025 3:43 PM EDT 08/13/2025 3:58 PM EDT us Lawrence Han MD LAB BLOOD ORDERABLES Final Resul t Performing Organization Address [facility]/ZIP Co de Phone Number [facility] [address] [place] [address], [place] [phone] * Lipase (08/13/2025 3:43 PM EDT) [facility] Lipase 42 13 - 75 unit/L LAB CHEMISTRY METHOD 08/13/2025 4:35 PM EDT [facility] Blood Venous blood specimen / Unknown Venipuncture / Unknown 08/13/2025 3:43 PM EDT 08/13/2025 3:58 PM EDT us Lawrence Han MD LAB BLOOD ORDERABLES Final Resul t Performing Organization Address [facility] Co de Phone Number [facility] [address] [place] [address], [place] [phone] * (ABNORMAL) Venous blood gas (08/13/2025 3:43 PM EDT) Pathologist [facility] pH, Jw 7.44(H) 7.32 - 7.42 pH 08/13/2025 4:01 PM EDT [facility] pCO2, Jw 45 41 - 51 mmHg 08/13/2025 4:01 PM EDT [facility] pO2, Jw 50(H) 25 - 40 mmHg 08/13/2025 4:01 PM EDT [facility] HCO3, Venous 29.1(H) 22.0 - 26.0 mmol/L 08/13/2025 4:01 PM EDT [facility] O2 Sat, Jw 84.5 % 08/13/2025 4:01 PM EDT [facility] Base Excess, Jw 5.7(H) -2.0 - 2.0 mmol/L 08/13/2025 4:01 PM T [facility] Blood Venous blood specimen / Unknown Venipuncture / Unknown 08/13/2025 3:43 PM EDT 08/13/2025 3:58 PM EDT us Lawrence Han MD LAB BLOOD ORDERABLES Final Resul t [facility] [address] [place] [address], [place] [phone] * (ABNORMAL) Comprehensive metabolic panel (08/13/2025 3:43 PM EDT) Sodium 137 133 - 145 mmol/L LAB CHEMISTRY METHOD 08/13/2025 4:35 PM [facility] Potassium 3.7 3.5 - 5.5 mmol/L LAB CHEMISTRY METHOD 08/13/2025 4:35 PM [facility] Comment:Hemolysis present Chloride 103 96 - 110 mmol/L LAB CHEMISTRY METHOD 08/13/2025 4:35 PM [facility] CO2 27 21 - 32 mmol/L LAB CHEMISTRY METHOD 08/13/2025 4:35 PM [facility] Anion Gap 7 3 - 11 LAB CHEMISTRY METHOD 08/13/2025 4:35 PM [facility] Glucose 123(H) 70 - 100 mg/dL LAB CHEMISTRY METHOD 08/13/2025 4:35 PM [facility] BUN 23 5 - 25 mg/dL LAB CHEMISTRY METHOD 08/13/2025 4:35 PM [facility] Creatinine 0.87 0.50 - 1.10 mg/dL LAB CHEMISTRY METHOD 08/13/2025 4:35 PM [facility] eGFR 81 >=60 mL/min/1. 73m2 LAB CHEMISTRY METHOD 08/13/2025 4:35 PM [facility] Comment:Calculation based on the Chronic Kidney Disease Epidemiology Collaboration (CKD-EPI) equation refit without adjustment for race. BUN/Creatinine Ratio 26.4 LAB CHEMISTRY METHOD 08/13/2025 4:35 PM EDT [facility] Calcium 9.1 8.5 - 10.5 mg/dL LAB CHEMISTRY METHOD 08/13/2025 4:35 PM EDT [facility] AST (SGOT) 40 10 - 42 unit/L LAB CHEMISTRY METHOD 08/13/2025 4:35 PM T [facility] ALT (SGPT) 33 10 - 60 unit/L LAB CHEMISTRY METHOD 08/13/2025 4:35 PM T [facility] Alkaline Phosphatase 144(H) 42 - 121 unit/L LAB CHEMISTRY METHOD 08/13/2025 4:35 PM T [facility] Total Protein 6.8 6.0 - 8.0 g/dL LAB CHEMISTRY METHOD 08/13/2025 4:35 PM EDT [facility] Albumin 3.4 3.2 - 5.0 g/dL LAB CHEMISTRY METHOD 08/13/2025 4:35 PM T [facility] Total Bilirubin 0.4 0.0 - 1.4 mg/dL LAB CHEMISTRY METHOD 08/13/2025 4:35 PM EDT [facility] Blood Venous blood specimen / Unknown Venipuncture / Unknown 08/13/2025 3:43 PM EDT 08/13/2025 3:58 PM EDT us Lawrence Han MD LAB BLOOD ORDERABLES Final Resul t [facility] [address] [place] [address], * ECG 12 lead (08/13/2025 3:06 PM EDT) Ventricular Rate ECG 96 BPM GEMUSE Atrial Rate 96 BPM GEMUSE P-R Interval 200 ms GEMUSE QRS Duration 82 ms GEMUSE Q-T Interval 390 ms GEMUSE QTc 492 ms GEMUSE P Wave [place] 87 degrees GEMUSE R [place] 7 degrees GEMUSE T [place] 63 degrees GEMUSE ECG Interpretation Normal sinus [...] Months Insurance [place] - [place] Care Teams Director Epidemiology Relationship Specialty Start Date End Date [place], MD [place] [address] [place] [address] PCP - General 01/13/1996
--- OUTSIDE RECORDS SUMMARY | 2025-09-07 18:28 | XMS_ITS | Encounter Summary ---
Author Organization [employer] Address [address] [place] [address] 7 [place] [address] Care Team Providers Care Back Pad Inspector Name Role Phone [place]ighton, Shereen NOLASCO Primary Care Provider [phone] Nupur Bullock PharmD Unavailable Sury Benitez Unavailable [phone] JuliusNirali castellanos OD Unavailable Li Grande MD Unavailable [phone] Anselmo Gates MD Unavailable Margaret Holman Unavailable Herberth Stokes MD Unavailable [phone] Hilton Palacios MD Unavailable Aaron Pringle MD Unavailable [phone] Lori James Unavailable Neelima Raygoza Unavailable Ronda Rodríguez Unavailable [phone] Neelima Raygoza Unavailable Neelima Raygoza Unavailable Reason for Visit * Reason Onset Date Comments Medication Question 07/05/2024 Encounter Details Date Type Department Care Team ([facility] st Contact Info) Description 07/05/2024 Telephone [facility] [address] [place] [address] Shereen Latham MD 230 [place] [address] Medication Question Social History Tobacco Use Types [...] is no medication interaction. Contact pt at [phone] documented in this encounter Plan of Treatment Upcoming Encounters Date Type Department Care Team (Late st Contact Info) Description 09/13/2025 3:15 PM EST Office Visit [facility] MEDICINE [address] [place] [address] Shereen Latham MD 230 [place] [address] 10/02/2025 2:00 PM EST Office Visit [facility] ADULT DENTAL [address] [place] [address] Isa De La Rosa DDS 230 [place] [address] documented as of this encounter Visit Diagnoses Diagnosis Pain Generalized pain documented in this encounter Additional Health Concerns Assessment Noted Time PHQ-9 Depression Total Score: 13 024 4:53 PM EDT documented as of this encounter Care Teams Back Pad Inspector Relationship Specialty Start Date End Date Shereen Latham MD 230 [place] [address] PCP - General Family Medicine 11/02/18 Nupur Bullock, CharleneD 230 [place] [address] Pharmacist Internal Medicine 08/09/24 05/15/25 Sury Benitez [address] [place] [address] [address] [place] [address] Pulmonary Disease 09/27/24 Nirali Madrid OD [address] [place] [address] Optometry 10/27/24 Li Grande MD [address] [place] [address] Hematology and Oncology 10/27/24 Anselmo Gates MD 10 [facility] 203 [place] [address] Orthopaedic Surgery 10/27/24 Margaret Holman [address] [facility] 3rd [place] [address] Cardiology 10/27/24 Herberth Stokes MD [address] [facility] [address] [place] [address] Gastroenterology 10/27/24 Hilton Palacios MD [address] [place] [address], [address] [place] [address] Neurology 02/06/25 Aaron Pringle MD [address] [facility] [address] [place] [address] General Surgery 03/07/25 Lori James Registered Nurse 06/15/25 06/15/25 Neelima Raygoza 06/15/25 06/16/25 Ronda Rodríguez [address] [place] [address] Obstetrics and Gynecology 08/02/25 Neelima Raygoza 08/14/25 08/23/25 Neelima Raygoza 08/28/25 08/29/25 Pily Delaney Acetylene Torch OperatorAsp Net Software Developer 07/22/24 Elie BRASHER [facility] Psychology 12/29/24 documented as of this encounter
--- OUTSIDE RECORDS SUMMARY | 2025-09-07 18:28 | XMS_ITS | Encounter Summary ---
Author Organization [employer] Address 75 [facility] 7 [place] [address] Care Team Providers Care Envelope Fold Operator Name Role Phone Shereen Latham MD Primary Care Provider [phone] Nupur Bullock PharmD Unavailable [phone] Sury Benitez Unavailable [phone] Julius, Nirali OD Unavailable Li Grande MD Unavailable [phone] Anselmo Gates MD Unavailable Margaret Holman Unavailable Herberth Stokes MD Unavailable [phone] Hilton Palacios MD Unavailable Aaron Pringle MD Unavailable [phone] Lori James Unavailable Neelima Raygoza Unavailable Ronda Rodríguez Unavailable [phone] Neelima Raygoza Unavailable Neelima Raygoza Unavailable Encounter Details Date Type Department Care Team (Late st Contact Info) Description 10/22/2023 Orders Only [facility] MEDICINE [address] [place] [address] Shereen Latham MD 230 [place] [address] Vitamin D deficiency Social History Tobacco Use [...] Description 09/13/2025 3:15 PM EST Office Visit [facility] [address] [place] [address] Shereen Latham MD [address] [place] [address] 10/02/2025 2:00 PM EST Office Visit [facility] ADULT DENTAL 230 [place] [address] Paz-Connor, Isa, DDS 230 [place] [address] documented as of this encounter Visit Diagnoses Diagnosis Vitamin D deficiency documented in this encounter Additional Health Concerns Assessment Noted Time PHQ-9 Depression Total Score: 023 10:42 AM EST documented as of this encounter Care Teams Envelope Fold Operator Relationship Specialty Start Date End Date Shereen Latham MD [address] [place] [address] PCP - General Family Medicine 11/02/18 Nupur Bullock, CharleneD [address] [place] [address], [place] [address] Pharmacist Internal Medicine 08/09/24 05/15/25 Sury Benitez [address] [place] [address] [address] [place] [address] Pulmonary Disease 09/27/24 Julius Nirali SUSAN [address] [place] [address] Optometry 10/27/24 Li Grande MD 575 [place] [address] Hematology and Oncology 10/27/24 Anselmo Gates MD [address] [facility] [address] [facility] 203 [place] [address] Orthopaedic Surgery 10/27/24 Margaret [place] 11 [facility] 3rd [place] [address] Cardiology 10/27/24 Herberth Stokes MD 11 [facility] 3rd [place] [address] Gastroenterology 10/27/24 Hilton Palacios MD 15 [facility], [address] [place] [address] Neurology 02/06/25 Aaron Pringle MD 11 [facility] [address]rd [place] [address] General Surgery 03/07/25 Lori James Registered Nurse 06/15/25 06/15/25 Neelima Raygoza 06/15/25 06/16/25 Ronda Rodríguez [address] [place] [address] 215 [place] [address] Obstetrics and Gynecology 08/02/25 Neelima Raygoza 08/14/25 08/23/25 Neelima Raygoza 08/28/25 08/29/25 Pily Delaney Group CaptainPlastic Shaper 07/22/24 Elie Vicky [facility] Psychology 12/29/24 documented as of this encounter
--- OUTSIDE RECORDS SUMMARY | 2025-09-07 18:28 | XMS_ITS | Encounter Summary ---
Author Organization [employer] Address 75 [facility] 7 [place] [address] Care Team Providers Care Legal Secretary Receptionist Name Role Phone Shereen Latham MD Primary Care Provider [phone] Nupur Bullock PharmD Unavailable [phone] Sury Benitez Unavailable Julius, Nirali OD Unavailable Li Grande MD Unavailable [phone] Anselmo Gates MD Unavailable Margaret Holman Unavailable Herberth Stokes MD Unavailable [phone] Hilton Palacios MD Unavailable Aaron Pringle MD Unavailable [phone] Lori James Unavailable Neelima Raygoza Unavailable Ronda Rodríguez Unavailable Neelima Raygoza Unavailable Neelima Raygoza Unavailable Encounter Details Date Type Department Care Team (Late st Contact Info) Description 05/02/2024 Orders Only [facility] MEDICINE 230 [place] [address] Shereen Latham MD 230 [place] [address] Gout, unspecified cause, unspecified chronicity, unspecified site [...] Description 09/13/2025 3:15 PM EST Office Visit [facility] 230 [place] [address] Shereen Latham MD 230 [place] [address] 10/02/2025 2:00 PM EST Office Visit [facility] ADULT DENTAL 230 [place] [address] Paz-Connor, Isa, DDS 230 [place] [address] documented as of this encounter Visit Diagnoses Diagnosis Gout, unspecified cause, unspecified chronicity, unspecified site- Primary documented in this encounter Additional Health Concerns Assessment Noted Time PHQ-9 Depression Total Score: 23 024 1:45 PM EDT documented as of this encounter Care Teams Legal Secretary Receptionist Relationship Specialty Start Date End Date Shereen Latham MD 230 [place] [address] PCP - General Family Medicine 11/02/18 Nupur Bullock PharmD 230 [place] [address] Pharmacist Internal Medicine 08/09/24 05/15/25 Sury Benitez [address] [place] [address] [place] [address] [place] [address] Pulmonary Disease 09/27/24 Nirali Madrid OD [address] [place] [address] Optometry 10/27/24 Li Grande MD [address] [place] [address] Hematology and Oncology 10/27/24 Anselmo Gates MD 10 [facility] [address] [place] [address] Orthopaedic Surgery 10/27/24 Margaret Holman 11 [facility] 3rd [place] [address] Cardiology 10/27/24 Herberth Stokes MD 11 [facility] [address]rd [place] [address] Gastroenterology 10/27/24 Hilton Palacios MD 15 [facility], [address] [place] [address] Neurology 02/06/25 Aaron Pringle MD [address] [place] [address] General Surgery 03/07/25 Lori James Registered Nurse 06/15/25 06/15/25 Neelima Raygoza 06/15/25 06/16/25 Ronda Rodríguez [address] [place] [address] 215 [place] [address] Obstetrics and Gynecology 08/02/25 Neelima Raygoza 08/14/25 08/23/25 Neelima Raygoza 08/28/25 08/29/25 Pily Delaney Gut CarrierSecurity Chief Museum 07/22/24 Elie Vicky [facility] Psychology 12/29/24 documented as of this encounter
--- OUTSIDE RECORDS SUMMARY | 2025-09-07 18:29 | XMS_ITS | Encounter Summary ---
Author Organization [employer] Address 75 [facility] 7t [place] [address] Care Team Providers Care Bereavement Coordinator Name Role Phone [place], Shereen NOLASCO Primary Care Provider [phone] Nupur Bullock PharmD Unavailable Sury Benitez Unavailable [phone] JuliusNirali castellanos OD Unavailable Li Grande MD Unavailable [phone] Anselmo Gates MD Unavailable Margaret Holman Unavailable Herberth Stokes MD Unavailable [phone] Hilton Palacios MD Unavailable Aaron Pringle MD Unavailable [phone] Lori James Unavailable Neelima Raygoza Unavailable Ronda Rodríguez Unavailable [phone] Neelima Raygoza Unavailable Neelima Raygoza Unavailable Encounter Details Date Type Department Care Team (Latest Contact Info) Description 08/16/2021 Abstract [facility] CONVERSIONS Dental, Provider, DDS Social [...] Visit [facility] MEDICINE [address] [place] [address] Shereen Latham MD [address] [place] [address] 10/02/2025 2:00 PM EST Office Visit [facility] ADULT DENTAL [address] [place] [address] Isa De La Rosa, DDS [address] [place] [address] documented as of this encounter Visit Diagnoses Not on filedocumented in this encounter Care Teams Bereavement Coordinator Relationship Specialty Start Date End Date Shereen Latham MD [address] [place] [address] PCP - General Family Medicine 11/02/18 Nupur Bullock, CharleneD [address] [place] [address] Pharmacist Internal Medicine 08/09/24 05/15/25 Sury Benitez [address] [place] [address] Pulmonary Disease 09/27/24 Nirali Madrid OD [address] [place] [address] Optometry 10/27/24 Li Grande MD 575 [place] [address] Hematology and Oncology 10/27/24 Anselmo Gates MD 10 [facility] [address] [place] [address] Orthopaedic Surgery 10/27/24 Margaret Holman 11 [facility] 3rd [place] [address] Cardiology 10/27/24 Herberth Stokes MD 11 [facility] [address]rd [place] [address] Gastroenterology 10/27/24 Hilton Palacios MD 15 [facility], [address] [place] [address] Neurology 02/06/25 Aaron Pringle MD 11 [facility] [address]rd [place] [address] General Surgery 03/07/25 Lori James Registered Nurse 06/15/25 06/15/25 Neelima Raygoza 06/15/25 06/16/25 Ronda Rodríguez [address] [place] [address] 215 [place] [address] Obstetrics and Gynecology 08/02/25 Neelima Raygoza 08/14/25 08/23/25 Neelima Raygoza 08/28/25 08/29/25 Pily Delaney Neurosurgical Nurse PractitionerService Department Manager 07/22/24 Elie Vicky [facility] Psychology 12/29/24 documented as of this encounter
--- OUTSIDE RECORDS SUMMARY | 2025-09-07 18:29 | XMS_ITS | Encounter Summary ---
Author Organization [employer] Address [address] [place] [address] 7 [place] [address] Care Team Providers Care Renewable Energy Broker Name Role Phone Shereen Latham MD Primary Care Provider [phone] Nupur Bullock PharmD Unavailable Sury Benitez Unavailable [phone] Julius, Nirali OD Unavailable Li Grande MD Unavailable [phone] Anselmo Gates MD Unavailable Margaret Holman Unavailable Herberth Stokes MD Unavailable [phone] Hilton Palacios MD Unavailable Aaron Pringle MD Unavailable Lori James Unavailable Neelima Raygoza Unavailable Ronda Rodríguez Unavailable Neelima Raygoza Unavailable Neelima Raygoza Unavailable Encounter Details Date Type Department Care Team (Late st Contact Info) Description 11/16/2022 Abstract [facility] MEDICINE [address] [place] [address] Shereen Latham MD 230 [place] [address] Social History Tobacco Use Types Packs/Day Years [...] 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 Per Dr. Krish Loomis's note from [facility] [employer]AT [employer]IM[employer], pt was due for repeat colposcopy in [...] Associated Problem(s): Hyperaldosteronism (Resolved 07/29/2023) Seen by [facility] Endocrinology 04/03/2022. Initially seen 12/2021 for hyperaldosteronism. Labs [facility] 10/2021 aldosterone 8, plasma renin 0.11, aldosterone/renin 72.7. She was likely on spironolactone and lisinopril at time of labs. 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 -S/p RIGHT [facility]aste[facility] with sentinel [facility] started Oct, [...] had ultrasound sound for abdominal pain at [facility]. Ultrasound showed diffusely echogenic parenchyma with focal sparing around the gallbladder. No suspicious lesions. Impression showed liver likely representing hepatic steatosis and non- obstructing right kidney stone. documented in this encounter Plan of Treatment Upcoming Encounters Date Type Department Care Team (Late st Contact Info) Description 09/13/2025 3:15 PM EST Office Visit [facility] MED[facility]INE 230 [place] [address] Shereen Latham MD 230 [place] [address] 10/02/2025 2:00 PM EST Office Visit [facility] ADULT DENTAL [address] [place] [address] Isa De La Rosa, DDS 230 [place] [address] documented as of this encounter Visit Diagnoses Not on filedocumented in this encounter Care Teams Renewable Energy Broker Relationship Specialty Start Date End Date Shereen Latham MD 230 [place] [address] PCP - General Family Medicine 11/02/18 Nupur Bullock PharmD 230 [place] [address] Pharmacist Internal Medicine 08/09/24 05/15/25 Sury Benitez [address] [place] [address] [place] [address] [place] [address] Pulmonary Disease 09/27/24 Nirali Madrid OD [address] [place] [address] Optometry 10/27/24 Li Grande MD 575 [place] [address] Hematology and Oncology 10/27/24 Anselmo Gates MD 10 [facility] [address] [place] [address] Orthopaedic Surgery 10/27/24 Margaret Holman 11 [facility] 3rd [place] [address] Cardiology 10/27/24 Herberth Stokes MD 11 [facility] 3rd [place] [address] Gastroenterology 10/27/24 Hilton Palacios MD 15 [facility], [address] [place] [address] Neurology 02/06/25 Aaron Pringle MD [address] [place] [address] 3rd [place] [address] General Surgery 03/07/25 Lori James Registered Nurse 06/15/25 06/15/25 Neelima Raygoza 06/15/25 06/16/25 Ronda Rodríguez [address] [place] [address] 215 [place] [address] Obstetrics and Gynecology 08/02/25 Neelima Raygoza 08/14/25 08/23/25 Neelima Raygoza 08/28/25 08/29/25 Pily Delaney Costume DesignerClipper Counters 07/22/24 Elie Vicky [facility] 12/29/24 documented as of this encounter
--- OUTSIDE RECORDS SUMMARY | 2025-09-07 18:29 | XMS_ITS | Encounter Summary ---
Author Organization [employer] Address [address] [facility] 7 [place] [address] Care Team Providers Care Accounting Manager Assistant Controller Name Role Phone Shereen Latham MD Primary Care Provider [phone] Nupur Bullock PharmD Unavailable [phone] Sury Benitez Unavailable [phone] Julius, Nirali OD Unavailable Li Grande MD Unavailable [phone] Anselmo Gates MD Unavailable Margaret Holman Unavailable Herberth Stokes MD Unavailable [phone] Hilton Palacios MD Unavailable Aaron Pringle MD Unavailable [phone] Lori James Unavailable Neelima Raygoza Unavailable Ronda Rodríguez Unavailable Neelima Raygoza Unavailable Neelima Raygoza Unavailable Encounter Details Date Type Department Care Team (Late st Contact Info) Description 07/27/2023 Orders Only [facility] MEDICINE 230 [place] [address] Shereen Latham MD [address] [place] [address] Hypomagnesemia Social History Tobacco Use Types Packs/Day [...] Description 09/13/2025 3:15 PM EST Office Visit [facility] MEDICINE [address] [place] [address] Shereen Latham MD [address] [place] [address] 10/02/2025 2:00 PM EST Office Visit [facility] ADULT DENTAL [address] [place] [address] Paz-Connor, Isa, DDS [address] [place] [address] documented as of this encounter Visit Diagnoses Diagnosis Hypomagnesemia Disorders of magnesium metabolism documented in this encounter Additional Health Concerns Assessment Noted Time PHQ-9 Depression Total Score: 10 023 10:27 AM EDT documented as of this encounter Care Teams Accounting Manager Assistant Controller Relationship Specialty Start Date End Date Shereen Latham MD [address] [place] [address] PCP - General Family Medicine 11/02/18 Nupur Bullock, CharleneD [address] [place] [address] Pharmacist Internal Medicine 08/09/24 05/15/25 Sury Benitez [address] [place] [address] [address] [place] [address] Pulmonary Disease 09/27/24 Nirali Madrid OD [address] [place] [address] Optometry 10/27/24 Li Grande MD [address] [place] [address] Hematology and Oncology 10/27/24 Anselmo Gates MD 10 [facility] [address] [place] [address] Orthopaedic Surgery 10/27/24 Margaret Holman 11 [facility] 3rd [place] [address] Cardiology 10/27/24 Herberth Stokes MD 11 [facility] [address]rd [place] [address] Gastroenterology 10/27/24 Hilton Palacios MD 15 [facility], [address] [place] [address] Neurology 02/06/25 Aaron Pringle MD 11 [facility] [address]rd [place] [address] General Surgery 03/07/25 Lori James Registered Nurse 06/15/25 06/15/25 Neelima Raygoza 06/15/25 06/16/25 Ronda Rodríguez [address] [place] [address] [address] [place] [address] Obstetrics and Gynecology 08/02/25 Neelima Raygoza 08/14/25 08/23/25 Neelima Raygoza 08/28/25 08/29/25 Pily Delaney Graphite Pan Drier TenderCulinary Worker 07/22/24 Elie BRASHER [facility] Psychology 12/29/24 documented as of this encounter
--- OUTSIDE RECORDS SUMMARY | 2025-09-07 18:29 | XMS_ITS | Encounter Summary ---
Author Organization [employer] Address [address] [place] [address] 7 [place] [address] Care Team Providers Care Commercial Front Load Operator Name Role Phone [place], Shereen NOLASCO Primary Care Provider [phone] Nupur Bullock PharmD Unavailable Sury Benitez Unavailable [phone] JuliusNirali castellanos OD Unavailable Li Grande MD Unavailable [phone] Anselmo Gates MD Unavailable Margaret Holman Unavailable Herberth Stokes MD Unavailable [phone] Hilton Palacios MD Unavailable Aaron Pringle MD Unavailable [phone] Lori James Unavailable Neelima Raygoza Unavailable Ronda Rodríguez Unavailable Neelima Raygoza Unavailable Neelima Raygoza Unavailable Reason for Visit * Reason Onset Date Comments Nurse Triage 02/13/2025 Encounter Details Date Type Department Care Team (Late st Contact Info) Description 02/13/2025 Telephone [facility] MEDICINE 230 [place] [address] Shereen Latham MD 230 [place] [address] Nurse Triage Social History Tobacco Use Types [...] Description 09/13/2025 3:15 PM EST Office Visit [facility] MEDICINE [address] [place] [address] Shereen Latham MD [address] [place] [address] [place] [address] 10/02/2025 2:00 PM EST Office Visit [facility] ADULT DENTAL 230 [place] [address] PazJenaa Isa, DDS 230 [place] [address] documented as of this encounter Visit Diagnoses Not on filedocumented in this encounter Additional Health Concerns Assessment Noted Time PHQ-9 Depression Total Score: 22 025 10:17 AM EST documented as of this encounter Care Teams Commercial Front Load Operator Relationship Specialty Start Date End Date Shereen Latham MD [address] [place] [address] PCP - General Family Medicine 11/02/18 Nupur Bullock, CharleneD 230 [place] [address] Pharmacist Internal Medicine 08/09/24 05/15/25 Sury Benitez [address] [place] [address] Dr [facility] 103 [place] [address] Pulmonary Disease 09/27/24 Nirali Madrid OD 267 [place] [address] Optometry 10/27/24 Li Grande MD [address] [place] [address] Hematology and Oncology 10/27/24 Anselmo Gates MD [address] [facility] [address] [place] [address] Orthopaedic Surgery 10/27/24 Margaret Holman [address] 3rd [place] [address] Cardiology 10/27/24 Herberth Stokes MD [address] [facility] [address] 3rd [place] [address] Gastroenterology 10/27/24 Hilton Palacios MD [address] [place] [address], [address] [place] [address] Neurology 02/06/25 Aaron Pringle MD [address] [place] [address] 3rd [place] [address] General Surgery 03/07/25 Lori James Registered Nurse 06/15/25 06/15/25 Neelima Raygoza 06/15/25 06/16/25 Ronda Rodríguez [address] [place] [address] [address] [place] [address] Obstetrics and Gynecology 08/02/25 Neelima Raygoza 08/14/25 08/23/25 Neelima Raygoza 08/28/25 08/29/25 Pily Delaney Director BiologyPig Casting Machine Operator 07/22/24 Elie Vicky [facility] Psychology 12/29/24 documented as of this encounter
--- OUTSIDE RECORDS SUMMARY | 2025-09-07 18:29 | XMS_ITS | Encounter Summary ---
Author Organization [employer] Address 75 [facility] 7t [place] [address] Care Team Providers Care Billing Rep Name Role Phone [place], Shereen NOLASCO Primary Care Provider [phone] Nupur Bullock PharmD Unavailable Sury Benitez Unavailable [phone] Julius, Nirali OD Unavailable Li Grande MD Unavailable [phone] Anselmo Gates MD Unavailable Margaret Holman Unavailable Herberth Stokes MD Unavailable [phone] Hilton Palacios MD Unavailable Aaron Pringle MD Unavailable [phone] Lori James Unavailable Neelima Raygoza Unavailable Ronda Rodríguez Unavailable Neelima Raygoza Unavailable Star Raygozada Unavailable Reason for Visit * Reason Comments Med Refill Encounter Details Date Type Department Care Team ([facility] st Contact Info) Description 06/21/2024 Refill [facility] MED & PEDS [address] [place] [address] Shereen Latham MD 230 [place] [address] Mild intermittent asthma, unspecified whether complicated; Pain [...] Office Visit [facility] MEDICINE [address] [place] [address] Shereen Latham MD [address] [place] [address] 10/02/2025 2:00 PM EST Office Visit [facility] ADULT DENTAL 230 [place] [address] Paz-Connor, Isa, DDS 230 [place] [address] documented as of this encounter Visit Diagnoses Diagnosis Mild intermittent asthma, unspecified whether complicated Pain Generalized pain documented in this encounter Additional Health Concerns Assessment Noted Time PHQ-9 Depression Total Score: 13 024 4:53 PM EDT documented as of this encounter Care Teams Billing Rep Relationship Specialty Start Date End Date Shereen Latham MD [address] [place] [address] PCP - General Family Medicine 11/02/18 Nupur Bullock, CharleneD [address] [place] [address] Pharmacist Internal Medicine 08/09/24 05/15/25 Sury Benitez [address] [place] [address] Dr [place] [address] [place] [address] Pulmonary Disease 09/27/24 Nirali Madrid OD 267 [place] [address] Optometry 10/27/24 Li Grande MD [address] [place] [address] Hematology and Oncology 10/27/24 Anselmo Gates MD [address] [place] [address] Orthopaedic Surgery 10/27/24 Margaret Holman [address] 3rd [place] [address] Cardiology 10/27/24 Herberth Stokes MD 11 [facility] 3rd [place] [address] Gastroenterology 10/27/24 Hilton Palacios MD 15 [facility], [address] [place] [address] Neurology 02/06/25 Aaron Pringle MD 11 [facility] 3rd [place] [address] General Surgery 03/07/25 Lori James Registered Nurse 06/15/25 06/15/25 Neelima Raygoza 06/15/25 06/16/25 Ronda Rodríguez [address] [place] [address] [address] [place] [address] Obstetrics and Gynecology 08/02/25 Neelima Raygoza 08/14/25 08/23/25 Neelima Raygoza 08/28/25 08/29/25 Pily Delaney Delivery MerchandiserManager Training And Development 07/22/24 Elie BRASHER [facility] Psychology 12/29/24 documented as of this encounter
--- OUTSIDE RECORDS SUMMARY | 2025-09-07 18:29 | XMS_ITS | Encounter Summary ---
Author Organization [employer] Address 75 [facility] 7 [place] [address] Care Team Providers Care Consulting Actuary Name Role Phone Shereen Latham MD Primary Care Provider [phone]- [phone] Sury Benitez Unavailable [phone] Nriali Madrid OD Unavailable Li Grande MD Unavailable [phone] Anselmo Gates MD Unavailable Margaret Holman Unavailable Herberth Stokes MD Unavailable [phone] Hilton Palacios MD Unavailable Aaron Pringle MD Unavailable [phone] Ronda Rodríguez Unavailable [phone] Reason for Visit * Reason Comments Med Refill Encounter Details Date Type Department Care Team (Late st Contact Info) Description 09/05/2025 Refill [facility] MED & PEDS [address] [place], [place] [phone] Shereen Latham MD 230 [place] [address] Pain; Chronic pain of both knees Social [...] Upcoming Encounters Date Type Department Care Team ([facility] st Contact Info) Description 09/13/2025 3:15 PM EST Office Visit [facility] MEDICINE 230 [place] [address] Shereen Latham MD 230 [place] [address] 10/02/2025 2:00 PM EST Office Visit [facility] ADULT DENTAL 230 [place] [address] Paz-ConnorIsa, DDS 230 [place] [address] documented as of this encounter Visit Diagnoses Diagnosis Pain Generalized pain Chronic pain of both knees documented in this encounter Additional Health Concerns Assessment Noted Time PHQ-9 Depression Total Score: 21 025 11:03 AM EDT documented as of this encounter Care Teams Consulting Actuary Relationship Specialty Start Date End Date Shereen Latham MD 230 [place] [address] PCP - General Family Medicine 11/02/18 Sury Benitez [address] [place] [address] Dr [facility] [address] [place] [address] Pulmonary Disease 09/27/24 Nirali [place] OD 267 [place] [address] Optometry 10/27/24 Li Grande MD [address] [place] [address] Hematology and Oncology 10/27/24 Anselmo Gates MD [address] [place] [address] Orthopaedic Surgery 10/27/24 Margaret Holman [address] [facility] [address] [place] [address] Cardiology 10/27/24 Herberth Stokes MD [address] [facility] [address] [place] [address] Gastroenterology 10/27/24 Hilton Palacios MD [address] [place] [address] DR, [address] [place] [address] Neurology 02/06/25 Aaron Pringle MD [address] [place] [address] Drive 3rd [place] [address] General Surgery 03/07/25 Ronda Rodríguez [address] [place] [address] [address] [place] [address] Obstetrics and Gynecology 08/02/25 Pily Delaney Group Exercise InstructorBadger Distiller Operator 07/22/24 Elie BRASHER [facility] Psychology 12/29/24 documented as of this encounter
--- OUTSIDE RECORDS SUMMARY | 2025-09-07 18:29 | XMS_ITS | Encounter Summary ---
Author Organization [employer] Address 75 [facility] 7 [place] [address] Care Team Providers Care Semiconductor Packages Platemaker Name Role Phone Shereen Latham MD Primary Care Provider [phone] Sury Benitez Unavailable [phone] Nirali Madrid OD Unavailable Li Grande MD Unavailable [phone] Anselmo Gates MD Unavailable Margaret Holman Unavailable Herberth Stokes MD Unavailable [phone] Hilton Palacios MD Unavailable Aaron Pringle MD Unavailable [phone] Ronda Rodríguez Unavailable Reason for Visit * Reason Onset Date Comments pt1 09/01/2025 Encounter Details Date Type Department Care Team (Late st Contact Info) Description 09/01/2025 Telephone [facility] MEDICINE [address] [place], [place] [phone] Shereen Latham MD 230 [place], [place] [phone] pt1 Social History Tobacco Use Types Packs/Day [...] Y/N: Yes Provider name or facility name: [facility] Escort needed: Y/N: No Do you have a wheelchair: Y/N: No If yes- Manual or electric: Visits: 5x a week for 4 weeks , when radiation starts Patient calling requesting PT1 Home Address verified: Y/N: Yes Provider [place] or facility name[place] [facility] [place] [address] [facility] [address] Escort needed: Y/N: No Do you have a wheelchair: Y/N: No If yes- Manual or electric: Visits: 3x a month documented in this encounter Plan of Treatment Upcoming Encounters Date Type Department Care Team (Late st Contact Info) Description 09/13/2025 3:15 PM EST Office Visit [facility] MEDICINE [address] [place] [address] Shereen Latham MD [address] [place] [address] 10/02/2025 2:00 PM EST Office Visit [facility] ADULT DENTAL 230 [place] [address] Paz-ConnorIsa, DDS 230 [place] [address] documented as of this encounter Visit Diagnoses Not on filedocumented in this encounter Additional Health Concerns Assessment Noted Time PHQ-9 Depression Total Score: 21 025 11:03 AM EDT documented as of this encounter Care Teams Semiconductor Packages Platemaker Relationship Specialty Start Date End Date Shereen Latham MD [address] [place] [address] PCP - General Family Medicine 11/02/18 Sury Benitez [address] [place] [address] [place] [address] [place] [address] Pulmonary Disease 09/27/24 Nirali Madrid OD 267 [place] [address] Optometry 10/27/24 Li Grande MD [address] [place] [address] Hematology and Oncology 10/27/24 Anselmo Gates MD [address] [place] [address] Orthopaedic Surgery 10/27/24 Margaret Holman [address] [facility] [address] [place] [address] Cardiology 10/27/24 Herberth Stokes MD 11 [facility] 3rd [place] [address] Gastroenterology 10/27/24 Hilton Palacios MD 15 [facility], [address] [place] [address] Neurology 02/06/25 Aaron Pringle MD 11 [facility] 3rd [place] [address] General Surgery 03/07/25 Rnoda Rodríguez [address] [place] [address] [address] [place] [address] Obstetrics and Gynecology 08/02/25 Pily Delaney Insurance Claims RepresentativeUtilization Reviewer 07/22/24 Elie Vicky [facility] Psychology 12/29/24 documented as of this encounter
--- OUTSIDE RECORDS SUMMARY | 2025-09-07 18:29 | XMS_ITS | Encounter Summary ---
Author Organization [employer] Address [address] [place] [address] 7 [place] [address] Care Team Providers Care Consumer Loan Specialist Name Role Phone [place], Shereen NOLASCO Primary Care Provider [phone] Nupur Bullock PharmD Unavailable Sury Benitez Unavailable [phone] JuliusNirali castellanos OD Unavailable Li Grande MD Unavailable [phone] Anselmo Gates MD Unavailable Margaret Holman Unavailable Herberth Stokes MD Unavailable [phone] Hilton Palacios MD Unavailable Aaron Pringle MD Unavailable [phone] Lori James Unavailable Neelima Raygoza Unavailable Ronda Rodríguez Unavailable Neelima Raygoza Unavailable Neelima Raygoza Unavailable Reason for Visit * Reason Onset Date Comments Appointment Request 04/25/2025 Encounter Details Date Type Department Care Team ([facility] st Contact Info) Description 04/25/2025 Telephone [facility] MEDICINE 230 [place] [address] Shereen Latham MD 230 [place] [address] Appointment Request Social History Tobacco Use Types [...] Description 09/13/2025 3:15 PM EST Office Visit [facility] MEDICINE 230 [place] [address] Shereen Latham MD [address] [place] [address] 10/02/2025 2:00 PM EST Office Visit [facility] ADULT DENTAL 230 [place] [address] Paz-Connor, Isa, DDS 230 [place] [address] documented as of this encounter Visit Diagnoses Not on filedocumented in this encounter Additional Health Concerns Assessment Noted Time PHQ-9 Depression Total Score: 22 025 10:17 AM EST documented as of this encounter Care Teams Consumer Loan Specialist Relationship Specialty Start Date End Date Shereen Latham MD [address] [place] [address] PCP - General Family Medicine 11/02/18 Nupur Bullock, CharleneD [address] [place] [address] Pharmacist Internal Medicine 08/09/24 05/15/25 Sury Benitez [address] [place] [address] Dr Yates [address] [place] [address] Pulmonary Disease 09/27/24 Nirali Madrid OD 267 [place] [address] Optometry 10/27/24 Li Grande MD 575 [place] [address] Hematology and Oncology 10/27/24 Anselmo Gates MD [address] [facility] [address] [place] [address] Orthopaedic Surgery 10/27/24 Margaret Holman [address] 3rd [place] [address] Cardiology 10/27/24 Herberth Stokes MD 11 [facility] 3rd [place] [address] Gastroenterology 10/27/24 Hilton Palacios MD 15 [facility], [address] [place] [address] Neurology 02/06/25 Aaron Pringle MD [address] [place] [address] 3rd [place] [address] General Surgery 03/07/25 Lori James Registered Nurse 06/15/25 06/15/25 Neelima Raygoza 06/15/25 06/16/25 Ronda Rodríguez [address] [place] [address] [address] [place] [address] Obstetrics and Gynecology 08/02/25 Neelima Raygoza 08/14/25 08/23/25 Neelima Raygoza 08/28/25 08/29/25 Pily Delaney Air Box TesterInstructor Dramatic Arts 07/22/24 Elie BRASHER [facility] Psychology 12/29/24 documented as of this encounter
--- OUTSIDE RECORDS SUMMARY | 2025-09-07 18:29 | XMS_ITS | Encounter Summary ---
Author Organization [employer] Address [address] [place] [address] 7 [place] [address] Care Team Providers Care Service Order Taker Name Role Phone Shereen Latham MD Primary Care Provider [phone] Nupur Bullock PharmD Unavailable [phone] Sury Benitez Unavailable [phone] Julius, Nirali OD Unavailable Li Grande MD Unavailable [phone] Anselmo Gates MD Unavailable Margaret Holman Unavailable Herberth Stokes MD Unavailable [phone] Hilton Palacios MD Unavailable Aaron Pringle MD Unavailable [phone] Lori James Unavailable Neelima Raygoza Unavailable Ronda Rodríguez Unavailable [phone] Neelima Raygoza Unavailable Neelima Raygoza Unavailable Encounter Details Date Type Department Care Team (Late st Contact Info) Description 10/11/2024 Telephone [facility] MEDICINE 230 [place] [address] Shereen Latham MD 230 [place] [address] Social History Tobacco Use Types Packs/Day Years [...] Description 09/13/2025 3:15 PM EST Office Visit [facility] MEDICINE 230 [place] [address] Shereen Latham MD 230 [place] [address] 10/02/2025 2:00 PM EST Office Visit [facility] ADULT DENTAL 230 [place] [address] Paz-Connor, Isa, DDS 230 [place] [address] documented as of this encounter Visit Diagnoses Not on filedocumented in this encounter Additional Health Concerns Assessment Noted Time PHQ-9 Depression Total Score: 13 024 4:53 PM EDT documented as of this encounter Care Teams Service Order Taker Relationship Specialty Start Date End Date Shereen Latham MD 230 [place] [address] PCP - General Family Medicine 11/02/18 Nupur Bullock, CharleneD [address] [place] [address] Pharmacist Internal Medicine 08/09/24 05/15/25 Sury Benitez [address] [place] [address] Pulmonary Disease 09/27/24 Nirali Madrid OD [address] [place] [address] Optometry 10/27/24 Li Grande MD [address] [place] [address] Hematology and Oncology 10/27/24 Anselmo Gates MD [address] [place] [address] Orthopaedic Surgery 10/27/24 Margaret Holman [address] 3rd [place] [address] Cardiology 10/27/24 Herberth Stokes MD [address] 3rd [place] [address] Gastroenterology 10/27/24 Hilton Palacios MD [address] [facility] [address] [place] [address] Neurology 02/06/25 Aaron Pringle MD [address] 3rd [place] [address] General Surgery 03/07/25 Lori James Registered Nurse 06/15/25 06/15/25 Neelima Raygoza 06/15/25 06/16/25 Ronda Rodríguez [address] [place] [address] [address] [place] [address] Obstetrics and Gynecology 08/02/25 Neelima Raygoza 08/14/25 08/23/25 Neelima Raygoza 08/28/25 08/29/25 Pily Delaney Chief InvestigatorCare Aid 07/22/24 Elie Vicky [facility] Psychology 12/29/24 documented as of this encounter
--- OUTSIDE RECORDS SUMMARY | 2025-09-07 18:29 | XMS_ITS | Encounter Summary ---
Author Organization [employer] Address 75 [facility] 7 [place] [address] Care Team Providers Care Learning Manager Name Role Phone Shereen Latham MD Primary Care Provider [phone] Sury Benitez Unavailable [phone] Nirali Madrid OD Unavailable Li Grande MD Unavailable [phone] Anselmo Gates MD Unavailable Margaret Holman Unavailable Herberth Stokes MD Unavailable [phone] Hilton Palacios MD Unavailable [phone] Aaron Pringle MD Unavailable [phone] Ronda Rodríguez Unavailable Reason for Visit * Reason Onset Date Comments Referral 09/01/2025 Lab Orders 09/01/2025 Encounter Details Date Type Department Care Team (Late st Contact Info) Description 09/01/2025 Telephone [facility] MEDICINE 230 [place], [place] [phone] Shereen Latham MD 230 [place], [place] [phone] Referral; Lab Orders Social History Tobacco Use [...] pt requesting two referrals one to a welfare visitor and another to a ems educator. Pt also requesting lab orders and thyroid test before apt on 09/13 Contact pt at [phone] documented in this encounter Plan of Treatment Upcoming Encounters Date Type Department Care Team (Late st Contact Info) Description 09/13/2025 3:15 PM EST Office Visit [facility] MEDICINE 230 [place] [address] Shereen Latham MD 230 [place] [address] 10/02/2025 2:00 PM EST Office Visit [facility] ADULT DENTAL 230 [place] [address] Paz-Connor, Isa, DDS 230 [place] [address] documented as of this encounter Visit Diagnoses Not on filedocumented in this encounter Additional Health Concerns Assessment Noted Time PHQ-9 Depression Total Score: 21 025 11:03 AM EDT documented as of this encounter Care Teams Learning Manager Relationship Specialty Start Date End Date Shereen Latham MD 230 [place] [address] PCP - General Family Medicine 11/02/18 Sury Benitez [address] [place] [address] Dr [facility] 103 [place] [address] Pulmonary Disease 09/27/24 Nirali Madrid OD 267 [place] [address] Optometry 10/27/24 Li Grande MD 575 [place] [address] Hematology and Oncology 10/27/24 Anselmo Gates MD [address] [facility] [address] [place] [address] Orthopaedic Surgery 10/27/24 Margaret Holman [address] 3rd [place] [address] Cardiology 10/27/24 Herberth Stokes MD 11 [facility] 3rd [place] [address] Gastroenterology 10/27/24 Hilton Palacios MD [address] [place] [address], [address] [place] [address] Neurology 02/06/25 Aaron Pringle MD [address] [place] [address] 3rd [place] [address] General Surgery 03/07/25 Ronda Rodríguez [address] [place] [address] [address] [place] [address] Obstetrics and Gynecology 08/02/25 Pily Delaney Credit Rating InspectorYarn Polishing Machine Operator 07/22/24 Elie BRASHER [facility] Psychology 12/29/24 documented as of this encounter
--- OUTSIDE RECORDS SUMMARY | 2025-09-07 18:29 | XMS_ITS | Encounter Summary ---
Author Organization [employer] Address [address] [facility] 7t [place] [address] Care Team Providers Care Glove Printer Name Role Phone [place], Shereen NOLASCO Primary Care Provider [phone]- [phone] Sury Benitez Unavailable [phone] Nirali Madrid OD Unavailable Li Grande MD Unavailable [phone] Anselmo Gates MD Unavailable Margaret Holman Unavailable Herberth Stokes MD Unavailable [phone] Hilton Palacios MD Unavailable Aaron Pringle MD Unavailable [phone] Ronda Rodríguez Unavailable [phone] Encounter Details Date Type Department Care Team (Late st Contact Info) Description 09/07/2025 Orders Only GENERIC EXTERNAL DATA DEPARTMENT Provider, [...] Description 09/13/2025 3:15 PM EST Office Visit [facility] MED[facility] [address] [place] [address] Shereen Latham MD [address] [place] [address] 10/02/2025 2:00 PM EST Office Visit [facility] ADULT DENTAL [address] [place] [address] Isa De La Rosa, DDS [address] [place] [address] documented as of this encounter Procedures Procedure Name Priority Date/Time Associated Diagnosis Comments NT-PROBNP Routine 09/07/2025 3:47 PM EST CBC WITH AUTO DIFFERENTIAL Routine 09/07/2025 3:47 PM EST documented in this encounter Results * (ABNORMAL) NT-proBNP (09/07/2025 3:47 PM EST) NT-proBNP 516.7(H) <300 pg/mL [facility] Comment:Reference Range:Age Group (years) NT-proBNP (pg/ml) InterpretationAll <300 Negative: HF unlikelyFor patients presenting to the ED with clinical suspicion ofnew onset or worsening HF, see below:18 to <50 >299.9 to <450.0 Grayzone: Xzeniinp29 to 75 >299.9 to <900.0 other causes of>75 >299.9 to <1800.0 NT-proBNP mgxkrorxi70 to <50 >449.9 Positive: HF bxidks44-50 >899.9>75 >1799.9Note: Elevated NT-proBNP levels should be interpreted inthe context of other clinical information. 09/07/2025 3:47 PM EST 09/07/2025 5:36 PM EST us Generic External Data Provider LAB BLOOD ORDERAB LES Final Result [facility] [address] [place] [address] [phone] * (ABNORMAL) CBC auto differential (09/07/2025 3:47 PM EST) White Blood Count 9.6 4.8 - 10.8 X10*3/uL [facility] Red Blood Count 3.89(L) 4.20 - 5.50 X10*6/uL [facility] Hemoglobin 10.9(L) 12.0 - 16.0 g/dl [facility] Hematocrit 34.0(L) 37.0 - 47.0 % [facility] Mean Corpuscular Volume 87.4 80.0 - 98.0 fL [facility] Mean Corpuscular Hemoglobin 28.0 27.0 - 33.0 pg [facility] Mean Corpuscular HGB Conc 32.1 31.0 - 35.0 g/dl [facility] Red Cell Distribution Width 14.2 11.0 - 16.0 % [facility] Platelet Count 316 160 - 400 X10*3/uL [facility] Mean Platelet Volume 11.0 9.4 - 12.3 fL [facility] Neutrophils Percent Auto 54.5 45 - 73 % [facility] Imm Gran Pct Auto 0.4 0.0 - 0.4 % [facility] Lymphocytes Percent Auto 34.7 20 - 40 % [facility] Monocytes Percent Auto 7.1 2 - 11 % [facility] Eosinophils Percent Auto 2.7 0 - 4 % [facility] Basophils Percent Auto 0.6 0 - 2 % [facility] NRBC Pct Auto 0.0 0.0 - 0.2 /100WBC [facility] Neutrophils Absolute Auto 5.2 2.0 - 8.3 x10*3/uL [facility] Imm Gran Abs Auto 0.04(H) 0.00 - 0.03 X10*3/uL [facility] Lymphocytes Absolute Auto 3.3 1.2 - 4.9 X10*3/uL [facility] Monocytes Absolute Auto 0.7 0.1 - 1.2 X10*3/uL [facility] Eosinophils Absolute Auto 0.3 0.0 - 0.4 X10*3/uL [facility] Basophils Absolute Auto 0.1 0.0 - 0.2 X10*3/uL [facility] NRBC Abs Auto 0.000 0.0 - 0.012 X10*3/uL [facility] 09/07/2025 3:47 PM EST 09/07/2025 5:36 PM EST us Generic External Data Provider LAB BLOOD ORDERAB LES Final Result [facility] [address] [place] [address] [phone] documented in this encounter Visit Diagnoses Not on filedocumented in this encounter Additional Health Concerns Assessment Noted Time PHQ-9 Depression Total Score: 21 025 11:03 AM EDT documented as of this encounter Care Teams Glove Printer Relationship Specialty Start Date End Date Shereen Latham MD [address] [place] [address] PCP - General Family Medicine 11/02/18 Sury Benitez [address] [place] [address] Dr [address] [place] [address] Pulmonary Disease 09/27/24 Nirali Madrid OD [address] [place] [address] Optometry 10/27/24 Li Grande MD [address] [place] [address] Hematology and Oncology 10/27/24 Anselmo Gates MD [address] [facility] [address] [place] [address] Orthopaedic Surgery 10/27/24 Margaret Holman [address] 3rd [place] [address] Cardiology 10/27/24 Herberth Stokes MD [address] [facility] [address] [place] [address] Gastroenterology 10/27/24 Hilton Palacios MD [address] [place] [address] DR, [address] [place] [address] Neurology 02/06/25 Aaron Pringle MD [address] [place] [address] 3rd Floor [place] [address] General Surgery 03/07/25 Ronda Rodríguez [address] [place] [address] [address] [place] [address] Obstetrics and Gynecology 08/02/25 Pily Delaney Senior Lead Software EngineerOffice Inspector 07/22/24 Elie BRASHER [facility] Psychology 12/29/24 documented as of this encounter
--- OUTSIDE RECORDS SUMMARY | 2025-09-07 18:29 | XMS_ITS | Encounter Summary ---
Author Organization [employer] Address [address] [place] [address] 7 [place] [address] Care Team Providers Care Fractionation Supervisor Name Role Phone [place], Shereen NOLASCO Primary Care Provider [phone] Nupur Bullock PharmD Unavailable Sury Benitez Unavailable [phone] Julius, Nirali OD Unavailable Li Grande MD Unavailable [phone] Anselmo Gates MD Unavailable Margaret Holman Unavailable Herberth Stokes MD Unavailable Hilton Palacios MD Unavailable Aaron Pringle MD Unavailable [phone] Lori James Unavailable Neelima Raygoza Unavailable Ronda Rodríguez Unavailable [phone] Neelima Raygoza Unavailable Neelima Raygoza Unavailable Reason for Visit * Reason Comments Med Refill Encounter Details Date Type Department Care Team (Late st Contact Info) Description 12/02/2022 Refill [facility] [address] [place] [address] Shereen Latham MD [address] [place] [address] Wheeze (Primary Dx); Pain Social History Tobacco [...] EST Office Visit [facility] [address] [place] [address] Shereen Latham MD [address] [place] [address] 10/02/2025 2:00 PM EST Office Visit [facility] ADULT DENTAL [address] [place] [address] Isa De La Rosa, DDS [address] [place] [address] documented as of this encounter Visit Diagnoses Diagnosis Wheeze- Primary Wheezing Pain Generalized pain documented in this encounter Care Teams Fractionation Supervisor Relationship Specialty Start Date End Date Shereen Latham MD [address] [place] [address] PCP - General Family Medicine 11/02/18 Nupur Bullock, PharmD [address] [place] [address] Pharmacist Internal Medicine 08/09/24 05/15/25 Sury Benitez [address] [place] [address] Dr Milan [address] [place] [address] Pulmonary Disease 09/27/24 Nirali Madrid OD [address] [place] [address] Optometry 10/27/24 Li Grande MD [address] [place] [address] Hematology and Oncology 10/27/24 Anselmo Gates MD [address] [place] [address] Orthopaedic Surgery 10/27/24 Margaret Holman [address] 3rd [place] [address] Cardiology 10/27/24 Herberth Stokes MD [address] [facility] 3rd [place] [address] Gastroenterology 10/27/24 Hilton Palacios MD [address] [facility], [address] [place] [address] Neurology 02/06/25 Aaron Pringle MD [address] [facility] 3rd [place] [address] General Surgery 03/07/25 Lori James Registered Nurse 06/15/25 06/15/25 Neelima Raygoza 06/15/25 06/16/25 Ronda Rodríguez [address] [place] [address] [address] [place] [address] Obstetrics and Gynecology 08/02/25 Neelima Raygoza 08/14/25 08/23/25 Neelima Raygoza 08/28/25 08/29/25 Pily Delaney [employer] Stockyard SupervisorSlot Operations Manager 07/22/24 Elie BRASHER [facility] Psychology 12/29/24 documented as of this encounter
--- OUTSIDE RECORDS SUMMARY | 2025-09-07 18:29 | XMS_ITS | Encounter Summary ---
Author Organization [employer] Address [address] [facility] 7 [place] [address] Care Team Providers Care Shrinker Name Role Phone Shereen Latham MD Primary Care Provider [phone] Sury Benitez Unavailable [phone] Nirali Madrid OD Unavailable [phone] Li Grande MD Unavailable [phone] Anselmo Gates MD Unavailable Margaret Holman Unavailable Herberth Stokes MD Unavailable [phone] Hilton Palacios MD Unavailable Aaron Pringle MD Unavailable [phone] Ronda Rodríguez Unavailable [phone] Encounter Details Date Type Department Care Team (Late st Contact Info) Description 09/05/2025 Orders Only [facility] [address] [place] [address] Shereen Latham MD [address] [place], [place] [phone] Hypomagnesemia (Primary Dx) Social History Tobacco Use [...] PM EST Office Visit [facility] [address] [place] [address] Shereen Latham MD [address] [place] [address] 10/02/2025 2:00 PM EST Office Visit [facility] ADULT DENTAL [address] [place] [address] Paz-Connor, Isa, DDS [address] [place] [address] Scheduled Orders Name Type Priority Associated Diagnoses [...] documented as of this encounter Care Teams Shrinker Relationship Specialty Start Date End Date Shereen Latham MD [address] [place] [address] PCP - General Family Medicine 11/02/18 Sury Benitez [address] [place] [address] Dr [address] [place] [address] Pulmonary Disease 09/27/24 Nirali Madrid OD 267 [place] [address] Optometry 10/27/24 Li Grande MD [address] [place] [address] Hematology and Oncology 10/27/24 Anselmo Gates MD [address] [facility] [address] [place] [address] Orthopaedic Surgery 10/27/24 Margaret Holman [address] 3rd [place] [address] Cardiology 10/27/24 Herberth Stokes MD [address] [facility] [address] 3rd [place] [address] Gastroenterology 10/27/24 Hilton Palacios MD [address] [place] [address], [address] [place] [address] Neurology 02/06/25 Aaron Pringle MD [address] [facility] [address] [place] [address] General Surgery 03/07/25 Ronda Rodríguez [address] [place] [address] [address] [place] [address] Obstetrics and Gynecology 08/02/25 Pily Delaney Platform ConsultantHydropress Operator 07/22/24 Elie BRASHER [facility] Psychology 12/29/24 documented as of this encounter
--- OUTSIDE RECORDS SUMMARY | 2025-09-07 18:29 | XMS_ITS | Encounter Summary ---
Author Organization [employer] Address [address] [place] [address] Care Team Providers Care Dressing Machine Operator Name Role Phone Shereen Latham MD Primary Care Provider [phone] Encounter Details Date Type Department Care Team (Late st Contact Info) Description 09/06/2025 Telephone [facility] Hematology Oncology [address] [place] [address] Mouna Tobin [place] Social History [...] Info) Description 09/13/2025 12:00 PM EST Appointment [facility] Radiation Oncology [address] [place] [phone] 09/13/2025 1:00 PM EST Appointment [facility] Radiation Oncology [address] [place] [phone] Pal Ureña MD [address] [place] [address] 09/14/2025 3:00 PM EST Procedure visit [facility] [place] [address] [phone] Antony Garrett DPM [address] [address] documented as of this encounter Visit Diagnoses Not on filedocumented in this encounter Care Teams Dressing Machine Operator Relationship Specialty Start Date End Date Shereen Latham MD [address] [place] [phone] PCP - General 01/13/1996 documented as of this encounter
--- OUTSIDE RECORDS SUMMARY | 2025-09-07 18:29 | XMS_ITS | Encounter Summary ---
Author Organization [employer] Address [address] [facility] 7 [place] [address] Care Team Providers Care Card Puncher Name Role Phone Shereen Latham MD Primary Care Provider [phone] Sury Benitez Unavailable [phone] Nirali Madrid OD Unavailable Li Grande MD Unavailable [phone] Anselmo Gates MD Unavailable Margaret Holman Unavailable Herberth Stokes MD Unavailable [phone] Hilton Palacios MD Unavailable Aaron Pringle MD Unavailable [phone] Ronda Rodríguez Unavailable [phone] Neelima Raygoza Unavailable Neelima Raygoza Unavailable Reason for Visit * Reason Comments Med Refill Encounter Details Date Type Department Care Team (Late st Contact Info) Description 07/02/[address] [facility] [address] [place], [place] [phone] Shereen Latham MD [address] [place], [place] [phone] Alcohol abuse Social History Tobacco Use Types [...] Description 09/13/2025 3:15 PM EST Office Visit [facility] [address] [place] [address] Shereen Latham MD [address] [place] [address] 10/02/2025 2:00 PM EST Office Visit [facility] ADULT DENTAL [address] [place] [address] Paz-ConnorIsa, DDS [address] [place] [address] documented as of this encounter Visit Diagnoses Diagnosis Alcohol abuse Nondependent alcohol abuse, unspecified drinking behavior documented in this encounter Additional Health Concerns Assessment Noted Time PHQ-9 Depression Total Score: 21 025 11:03 AM EDT documented as of this encounter Care Teams Card Puncher Relationship Specialty Start Date End Date Shereen Latham MD [address] [place] [address] PCP - General Family Medicine 11/02/18 Sury Benitez [address] [place] [address] Dr [facility] 103 [place] [address] Pulmonary Disease 09/27/24 Nirali Madrid OD 267 [place] [address] Optometry 10/27/24 Li Grande MD 575 [place] [address] Hematology and Oncology 10/27/24 Anselmo Gates MD [address] [place] [address] Orthopaedic Surgery 10/27/24 Margaret Holman [address] 3rd [place] [address] Cardiology 10/27/24 Herberth Stokes MD [address] [facility] [address] 3rd [place] [address] Gastroenterology 10/27/24 Hilton Palacios MD [address] [place] [address], [address] [place] [address] Neurology 02/06/25 Aaron Pringle MD [address] [facility] [address] 3rd [place] [address] General Surgery 03/07/25 Ronda Rodríguez [address] [place] [address] [address] [place] [address] Obstetrics and Gynecology 08/02/25 Neelima Raygoza 08/14/25 08/23/25 Neelima Raygoza 08/28/25 08/29/25 Pily Delaney Acid SupervisorKindergarten Assistant 07/22/24 Elie BRASHER [facility] Psychology 12/29/24 documented as of this encounter
--- OUTSIDE RECORDS SUMMARY | 2025-09-07 18:29 | XMS_ITS | Encounter Summary ---
Author Organization [employer] Address [address] [place] [address] 7 [place] [address] Care Team Providers Care Routeman Name Role Phone [place], Shereen NOLASCO Primary Care Provider [phone] Nupur Bullock PharmD Unavailable Sury Benitez Unavailable [phone] JuliusNirali castellanos OD Unavailable Li Grande MD Unavailable [phone] Anselmo Gates MD Unavailable Margaret Holman Unavailable Herberth Stokes MD Unavailable [phone] Hilton Palacios MD Unavailable Aaron Pringle MD Unavailable [phone] Lori James Unavailable Neelima Raygoza Unavailable Ronda Rodríguez Unavailable Neelima Raygoza Unavailable Neelima Raygoza Unavailable Reason for Visit * Reason Onset Date Comments Medication Question 08/25/2024 Encounter Details Date Type Department Care Team ([facility] st Contact Info) Description 08/25/2024 Telephone [facility] [address] [place] [address] Shereen Latham MD 230 [place] [address] Medication Question Social History Tobacco Use Types [...] any questions you can contact pt at [phone]. documented in this encounter Plan of Treatment Upcoming Encounters Date Type Department Care Team (Late st Contact Info) Description 09/13/2025 3:15 PM EST Office Visit [facility] [address] [place] [address] Shereen Latham MD [address] [place] [address] 10/02/2025 2:00 PM EST Office Visit [facility] ADULT DENTAL [address] [place] [address] Paz-Connor, Isa, DDS [address] [place] [address] documented as of this encounter Visit Diagnoses Not on filedocumented in this encounter Additional Health Concerns Assessment Noted Time PHQ-9 Depression Total Score: 13 024 4:53 PM EDT documented as of this encounter Care Teams Routeman Relationship Specialty Start Date End Date Shereen Latham MD [address] [place] [address] PCP - General Family Medicine 11/02/18 Nupur Bullock, CharleneD [address] [place] [address] Pharmacist Internal Medicine 08/09/24 05/15/25 Sury Benitez [address] [place] [address] [place] [address] Pulmonary Disease 09/27/24 Julius NiraliSUSAN [address] [place] [address] Optometry 10/27/24 Li Grande MD [address] [place] [address] Hematology and Oncology 10/27/24 Anselmo Gates MD [address] [place] [address] Orthopaedic Surgery 10/27/24 Margaret Holman 11 [facility] 3rd [place] [address] Cardiology 10/27/24 Herberth Stokse MD 11 [facility] [address] [place] [address] Gastroenterology 10/27/24 Hilton Palacios MD [address] [place] [address], [address] [place] [address] Neurology 02/06/25 Aaron Pringle MD 11 [facility] [address] [place] [address] General Surgery 03/07/25 Lori James Registered Nurse 06/15/25 06/15/25 Neelima Raygoza 06/15/25 06/16/25 Ronda Rodríguez [address] [place] [address] [address] [place] [address] Obstetrics and Gynecology 08/02/25 Neelima Raygoza 08/14/25 08/23/25 Neelima Raygoza 08/28/25 08/29/25 Pily Delaney Finishing Area OperatorBack Grinder 07/22/24 Elie BRASHER [facility] Psychology 12/29/24 documented as of this encounter
--- OUTSIDE RECORDS SUMMARY | 2025-09-07 18:29 | XMS_ITS | Encounter Summary ---
Author Organization [employer] Address 75 [facility] 7t [place] [address] Care Team Providers Care Iap Displays Analyst Name Role Phone [place], Shereen NOLASCO Primary Care Provider [phone] Sury Benitez Unavailable [phone] Nirali Madrid OD Unavailable Li Grande MD Unavailable [phone] Anselmo Gates MD Unavailable Margaret Holman Unavailable Herberth Stokes MD Unavailable [phone] Hilton Palacios MD Unavailable [phone] Aaron Pringle MD Unavailable [phone] Ronda Rodríguez Unavailable [phone] Encounter Details Date Type Department Care Team (Late st Contact Info) Description 09/06/2025 Orders Only [facility] External Provider, [facility] Social History Tobacco Use Types Packs/Day [...] [facility] [address] [place] [address] Shereen Latham MD 230 [place] [address] 10/02/2025 2:00 PM EST Office Visit [facility] ADULT [facility]AL [address] [place] [address] Brandi-Isa Connor, DDS [address] [place] [address] documented as of this encounter Procedures Procedure Name Priority Date/Time Associated Diagnosis Comments CT CHEST WO CONTRAST Routine 09/06/2025 4:28 PM EST documented in this encounter Results * CT Chest w/o Contrast (09/06/2025 4:28 PM EST) Anatomical Region Laterality Modality Body, Chest Computed Tomogra phy 09/06/2025 4:28 PM EST Narrative 09/06/2025 5:27 PM EST [facility] [address] [place] [address] [address] Scan Report Signed Patient: Azra Cast MR#: [id number] : 1975 Acct:[id number] Age/Sex: 49 / F ADM Date: 09/06/25 Loc: HO.CT Attending Dr: Sury Benitez NP Ordering Physician: Sury Benitez NP Date of Service: 09/06/25 Procedure(s): CT chest wo IV con Accession Number(s): [id number] cc: Shereen Latham MD; Sury Benitez NP Report Number: [id number]: Total DLP = 198.00 mGy-cm Reason for [...] 09/06/25 1723 DD/ 1628 TD/TT: 09/06/25 1640 Crane Helper: CAROLINE Procedure Note Donotuseinterpreter, Image - 09/06/[address] [address] [address] Scan Report Signed Patient: Maged Cast#: [id number] : 1975Acct:[id number] Age/Sex: 49 / FADM Date: 09/06/25 Loc: HO.CT Attending Dr: Sury Benitez NP Ordering Physician: Sury Benitez NP Date of Service: 09/06/25 Procedure(s): CT chest wo IV con Accession Number(s): [id number] cc: Shereen Latham MD; Sury Benitez NP Report Number: [id number]: Total DLP = 198.00 mGy-cm Reason for [...] 09/06/25 1723 DD/ 1628 TD/TT: 09/06/25 1640 Crane Helper: CAROLINE [facility] External Provider IMG CT PROCEDURES Final Result documented in this encounter Visit Diagnoses Not on filedocumented in this encounter Additional Health Concerns Assessment Noted Time PHQ-9 Depression Total Score: 21 025 11:03 AM EDT documented as of this encounter Care Teams Iap Displays Analyst Relationship Specialty Start Date End Date Shereen Latham MD [address] [place] [address] PCP - General Family Medicine 11/02/18 Sury Benitez [address] [place] [address] [address] [place] [address] Pulmonary Disease 09/27/24 Nirali Madrid OD 267 [place] [address] Optometry 10/27/24 Li Grande MD [address] [place] [address] Hematology and Oncology 10/27/24 Anselmo Gates MD 10 [facility] [address] [place] [address] Orthopaedic Surgery 10/27/24 Margaret Holman [address] [facility] [address]rd [place] [address] Cardiology 10/27/24 Herberth Stokes MD 11 [facility] [address] [place] [address] Gastroenterology 10/27/24 Hilton Palacios MD [address] [place] [address], [address] [place] [address] Neurology 02/06/25 Aaron Pringle MD 11 [facility] [address] [place] [address] General Surgery 03/07/25 Ronda Rodríguez [address] [place] [address] Obstetrics and Gynecology 08/02/25 Pily Delaney Satellite Television InstallerV Belt Inspector 07/22/24 Elie BRASHER [facility] Psychology 12/29/24 documented as of this encounter
--- OUTSIDE RECORDS SUMMARY | 2025-09-07 18:29 | XMS_ITS | Encounter Summary ---
Author Organization [employer] Address [address] [place] [address] 7 [place] [address] Care Team Providers Care Banquet Server On Call Name Role Phone [place], Shereen NOLASCO Primary Care Provider [phone] Nupur Bullock PharmD Unavailable Sury Benitez Unavailable [phone] JuliusNirali castellanos OD Unavailable Li Grande MD Unavailable [phone] Anselmo Gates MD Unavailable Margaret Holman Unavailable Herberth Stokes MD Unavailable [phone] Hilton Palacios MD Unavailable [phone] Aaron Pringle MD Unavailable [phone] Lori James Unavailable Neelima Raygoza Unavailable Ronda Rodríguez Unavailable [phone] Neelima Raygoza Unavailable Neelima Raygoza Unavailable Reason for Visit * Reason Onset Date Comments Nurse Triage 01/25/2024 Referral 01/25/2024 Encounter Details Date Type Department Care Team (Late st Contact Info) Description 01/25/2024 Telephone [facility] [address] [place] [address] Shereen Latham MD [address] [place] [address] Nurse Triage; Referral Social History Tobacco Use [...] vary. Pt wants to be referred to [address] [address] [facility] will send to team to review [...] You become worse * Telephone Encounter - Eliazbeth Castano - 01/25/2024 9:50 AM EDT Symptoms: Back Pain - Not From Injury, Body Aches Outcome: Schedule an appointment to be seen within 3 days Reason: pt stated can't walk The caller accepted this outcome documented in this encounter Plan of Treatment Upcoming Encounters Date Type Department Care Team (Late st Contact Info) Description 09/13/2025 3:15 PM EST Office Visit [facility] [address] [place] [address] Shereen Latham MD [address] [place] [address] 10/02/2025 2:00 PM EST Office Visit [facility] [address] [place] [phone] Isa De La Rosa DDS [address] [place] [phone] documented as of this encounter Visit Diagnoses Not on filedocumented in this encounter Additional Health Concerns Assessment Noted Time PHQ-9 Depression Total Score: 21 023 10:42 AM EST documented as of this encounter Care Teams Banquet Server On Call Relationship Specialty Start Date End Date Shereen Latham MD [address] [place] [phone] PCP - General Family Medicine 11/02/18 Nupur Bullock, CharleneD [address] [place] [phone] Pharmacist Internal Medicine 08/09/24 05/15/25 Sury Benitez [address] [place] [address] [place] [address] [place] [address] Pulmonary Disease 09/27/24 Nirali Madrid OD [address] [place] [address] Optometry 10/27/24 Li Grande MD [address] [place] [address] Hematology and Oncology 10/27/24 Anselmo Gates MD [address] [place] [address] Orthopaedic Surgery 10/27/24 Margaret Holman [address] [place] [address] Cardiology 10/27/24 Herberth Stokes MD [address] [place] [address] Gastroenterology 10/27/24 Hilton Palacios MD [address] [facility] [place] [address] Neurology 02/06/25 Aaron Pringle MD [address] [facility] [address] [place] [address] General Surgery 03/07/25 Lori James Registered Nurse 06/15/25 06/15/25 Neelima Raygoza 06/15/25 06/16/25 Ronda Rodríguez [address] [place] [address] [address] [place] [address] Obstetrics and Gynecology 08/02/25 Neelima Raygoza 08/14/25 08/23/25 Neelima Raygoza 08/28/25 08/29/25 Pily Delaney [employer] CookPalliative Care Nurse Practitioner 07/22/24 Elie Vicky [facility] Psychology 12/29/24 documented as of this encounter
--- OUTSIDE RECORDS SUMMARY | 2025-09-07 18:29 | XMS_ITS | Clinical Summary ---
Author Organization [employer] Address [address] [facility] 7 [place] [address] Care Team Providers Care Desk Sergeant Name Role Phone Tarrant, Shereen NOLASCO Primary Care Provider [phone] Sury Benitez Unavailable [phone] Nirali Madrid OD Unavailable [phone] Li Grande MD Unavailable [phone] Anselmo Gates MD Unavailable Margaret Holman Unavailable Herberth Stokes MD Unavailable [phone] Hilton Palacios MD Unavailable Aaron Pringle MD Unavailable [phone] Ronda Rodríguez Unavailable [phone] Allergies Active Allergy Reactions Criticality Noted Date [...] tablet 3 01/13/20 25 Active sodium chloride (Sierra) 0.65 % nasal sprayIndication s:Nasal congestion Administer [...] ,ROM preserved but elicit pain See by film or tape librarian Lilly Clarke MD in 04/19/2025 for mx [...] -pxed topical diclofenac -pt will call her film or tape librarian to schedule f up -has apt already [...] being evaluated for tachycardia and has a bus driver/monitor in place. I recommended a left breast [...] being evaluated for tachycardia and has a bus driver/monitor in place. I recommended a left breast [...] 03/01/2025 Overview (06/22/2025): -per note from [facility] 02/27/25 EKG last visit showed sinus [...] (06/22/2025 11:51 AM EDT): -per note from [facility] 02/27/25 EKG last visit showed sinus [...] (03/02/2025 11:54 AM EDT): -per note from [facility] 02/27/25 EKG last visit showed sinus [...] 04/21/24 with uric acid 7.9 -Seen by film or tape librarian Dr. Bernstein 05/11/24 or evaluation of acute gout affecting left foot. -Pt admitted 07/25/24-07/2524 for swelling, pain, and warmth in the right knee. Patient had a low fever (100.3 F) and elevated WBC (80678 cells/uL), CRP, and ESR. Orthopedic surgery consulted [...] daily for prophylaxis -Seen by Dr. Clarke film or tape librarian 04/19/25 Continue allopurinol 200 mg daily, plan to repeat acid level before next visit and increase allopurinol titrate allopurinol if needed to reach serum uric acid level <6 mg/dL(2020 [employer] guideline for the management [...] 04/21/24 with uric acid 7.9 -Seen by film or tape librarian Dr. Bernstein 05/11/24 or evaluation of acute gout affecting left foot. -Pt admitted 07/25/24-07/2524 for swelling, pain, and warmth in the right knee. Patient had a low fever (100.3 F) and elevated WBC (00394 cells/uL), CRP, and ESR. Orthopedic surgery consulted [...] daily for prophylaxis -Seen by Dr. Clarke film or tape librarian 04/19/25 Continue allopurinol 200 mg daily, plan to repeat acid level before next visit and increase allopurinol titrate allopurinol if needed to reach serum uric acid level <6 mg/dL(2020 [employer] guideline for the management [...] 04/21/24 with uric acid 7.9 -Seen by film or tape librarian Dr. Bernstein 05/11/24 or evaluation of acute gout affecting left foot. -Pt admitted 07/25/24-07/2524 for swelling, pain, and warmth in the right knee. Patient had a low fever (100.3 F) and elevated WBC (97424 cells/uL), CRP, and ESR. Orthopedic surgery consulted [...] reach serum uric acid level <6 mg/dL(2020 [place] guideline for the management [...] reach serum uric acid level <6 mg/dL(2020 [place] guideline for the management [...] ON 08/24/2024 9:45 AM BY JOLIE PA [facility] (07/25/2024 - 07/27/2024) Patient presented with swelling, pain, and warmth in the right knee. Patient had a low fever (100.3 F) and elevated WBC (18774 cells/uL), CRP, and ESR. Orthopedic surgery consulted [...] by mouth once daily for 5 days. [facility] ED (08/07/2024) Patient presented for right knee [...] failure with reduced EF during admission to [facility] 06/22/24. - She was started on Lasix [...] effusion and indeterminate diastolic function -Seen by [facility] Cardiology 08/01/24 : exercise nuclear stress test [...] again until 07/2024. Last echo 06/23/2024 during [facility] heart failure admission, showed EF 55-60%, small [...] failure with reduced EF during admission to [facility] 06/22/24. - She was started on Lasix [...] effusion and indeterminate diastolic function -Seen by [facility] Cardiology 08/01/24 : exercise nuclear stress test [...] again until 07/2024. Last echo 06/23/2024 during [facility] heart failure admission, showed EF 55-60%, small [...] with reduced EF during recent admission to [facility] 06/22/24. Pt was volume overloaded therefore treated [...] with reduced EF during recent admission to [facility] 06/22/24. Pt was volume overloaded therefore treated [...] failure with reduced EF during admission to [facility] 06/22/24. - She was started on Lasix [...] effusion and indeterminate diastolic function -Seen by [facility] Cardiology 08/01/24 : exercise nuclear stress test [...] failure with reduced EF during admission to [facility] 06/22/24. - She was started on Lasix [...] effusion and indeterminate diastolic function -Seen by [facility] Cardiology 08/01/24 : exercise nuclear stress test [...] Complex care coordination 01/11/2024 Overview (01/11/2024): -Has SHEARING MACHINE OPERATOR services with Chavo Martin is applying [facility] 01/11/2024 -In our complex care management program -referred to PSYCHIATRIC on 01/04/2024 -Messaged sent to C3 nursing care attendant for assistance in care visits Assessment & Plan (06/22/2025 11:51 AM EDT): -Has SHEARING MACHINE OPERATOR services with Chavo Martin is applying [facility] 01/11/2024 -In our complex care management program -referred to PSYCHIATRIC on 01/04/2024 -Messaged sent to C3 nursing care attendant for assistance in care visits Assessment & Plan (04/26/2025 4:15 PM EDT): -Has SHEARING MACHINE OPERATOR services with Chavo Martin is applying [facility] 01/11/2024 -In our complex care management program -referred to PSYCHIATRIC on 01/04/2024 -Messaged sent to C3 nursing care attendant for assistance in care visits Assessment & Plan (12/29/2024 10:21 AM EST): -Has SHEARING MACHINE OPERATOR services with Chavo Martin is applying [facility] 01/11/2024 -In our complex care management program -referred to PSYCHIATRIC on 01/04/2024 -Messaged sent to C3 nursing care attendant for assistance in care visits Assessment & Plan (08/24/2024 9:19 AM EDT): -Has SHEARING MACHINE OPERATOR services with Chavo Martin is applying [facility] 01/11/2024 -In our complex care management program -referred to PSYCHIATRIC on 01/04/2024 -Messaged sent to C3 nursing care attendant for assistance in care visits Assessment & Plan (06/29/2024 4:06 PM EDT): -Has SHEARING MACHINE OPERATOR services with Chavo Martin is applying [facility] 01/11/2024 -In our complex care management program -referred to PSYCHIATRIC on 01/04/2024 -Messaged sent to C3 nursing care attendant for assistance in care visits Assessment & Plan (01/11/2024 9:30 AM EDT): -Has SHEARING MACHINE OPERATOR services with Chavo -She is applying [facility] 01/11/2024 -In our C3 complex care management program -referred to CB on 01/04/2024 -Messaged sent to C3 nursing care attendant for assistance in care visits [...] Management team and will reconnect with [facility]. Information given to patient. PLAN: (check all that apply) Behavioral Health Integration Plan Self- referred to PSYCHIATRIC/N per patient's preference. Assessment & Plan (11/24/2023 [...] for transfusion - Iron infusions ordered by Backpackers Manager DR. Grande - She recieved two [...] for transfusion - Iron infusions ordered by Backpackers Manager DR. Grande - She recieved two [...] for transfusion - Iron infusions ordered by Backpackers Manager DR. Grande - She recieved two [...] for transfusion - Iron infusions ordered by Backpackers Manager DR. Grande - She recieved two [...] for transfusion - Iron infusions ordered by Backpackers Manager DR. Grande - She recieved two [...] pedro back by: Janett Ortega Person calling: [employer] Date:06/16/24 Time: 1218 Saw CDTM on 08/16/24 [...] value for test(s): MAGS Results called to [employer] back by: Janett Ortega Person calling: [employer] Date:06/16/24 Time: 1218 Assessment & Plan (07/29/2023 4:34 PM EDT): Received magnesium IV in ER -Dose increased to TID - Recheck in 2 weeks Other specified health status 07/20/2023 Overview (06/22/2025): -next physical exam due after 06/22/26 -eye care facilitated by [facility] -dental home is [facility] -health care proxy filed 06/29/24 Assessment & Plan (06/22/2025 11:51 AM EDT): -next physical exam due after 06/22/26 -eye care facilitated by [facility] -dental home is [facility] -health care proxy filed 06/29/24 Assessment & Plan (06/29/2024 4:03 PM EDT): -next physical exam due after 06/29/25 -eye care facilitated by [facility] -dental home is [facility] -health care proxy given and [...] ultrasound sound for abdominal pain at [facility] revealing diffusely echogenic parenchyma with focal sparing [...] ultrasound sound for abdominal pain at [facility] revealing diffusely echogenic parenchyma with focal sparing [...] ultrasound sound for abdominal pain at [facility] revealing diffusely echogenic parenchyma with focal sparing [...] ultrasound sound for abdominal pain at [facility] revealing diffusely echogenic parenchyma with focal sparing [...] ultrasound sound for abdominal pain at [facility] revealing diffusely echogenic parenchyma with focal sparing [...] spironolactone (Aldactone) 25 MG tablet 11/09/24 -06/20/25 assurance associate held spironolactone Assessment & Plan (06/22/2025 11:51 AM EDT): -Blood pressure is at goal -Continue lifestyle modifications -Continue current medications - Prescribed spironolactone (Aldactone) 25 MG tablet 11/09/24 -06/20/25 assurance associate held spironolactone Assessment & Plan (04/26/2025 4:15 [...] been [facility] but has [...] subsequently declined -Admitted for alcohol detox at [facility] 04/09/24 -reports she is currently not drinking [...] been referred to [facility] but has [...] subsequently declined -Admitted for alcohol detox at [facility] 04/09/24 -reports she is currently not drinking [...] been referred to [facility] but has [...] subsequently declined -Admitted for alcohol detox at [facility] 04/09/24 -reports she is currently not drinking [...] been referred to [facility] but has [...] subsequently declined -Admitted for alcohol detox at [facility] 04/09/24 -reports she is currently not drinking [...] received phenobarb improved her symptoms, patient declined child life assistant help to place her in rehab, is [...] received phenobarb improved her symptoms, patient declined child life assistant help to place her in rehab, is [...] tumor 2.2 cm ER positive, ND positive, HER-2/PEREZ negative, two sentinel nodes negative. -S/p RIGHT mastectomy with sentinel node bx by Dr. [facility] -Adriamycin/Cytoxan based chemotherapy started [...] being evaluated for tachycardia and has a bus driver/monitor in place. I recommended a left breast [...] Dr. 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 -S/p RIGHT mastectomy with sentinel node bx by Dr. [facility] -Adriamycin/Cytoxan based chemotherapy started [...] being evaluated for tachycardia and has a bus driver/monitor in place. I recommended a left breast [...] tumor 2.2 cm ER positive, ND positive, HER-2/PEREZ negative, two sentinel nodes negative. -S/[facility] Oct, completed [...] being evaluated for tachycardia and has a bus driver/monitor in place. I recommended a left breast [...] tumor 2.2 cm ER positive, ND positive, HER-2/PEREZ negative, two sentinel nodes negative. -S/p [facility] Oct, completed [...] tumor 2.2 cm ER positive, ND positive, HER-2/PEREZ negative, two sentinel nodes negative. -S/p RIGHT mastectomy with sentinel node bx by Dr. [facility] -Adriamycin/Cytoxan based chemotherapy started [...] tumor 2.2 cm ER positive, ND positive, HER-2/PEREZ negative, two sentinel nodes negative. -S/p RIGHT [facility] started Oct, completed [...] tumor 2.2 cm ER positive, ND positive, HER-2/PEREZ negative, two sentinel nodes negative. -S/p RIGHT mastectomy with sentinel node bx by Dr. [facility] -Adriamycin/Cytoxan based chemotherapy started [...] tumor 2.2 cm ER positive, ND positive, HER-2/PEREZ negative, two sentinel nodes negative. -S/p RIGHT [facility] started Oct, completed [...] tumor 2.2 cm ER positive, ND positive, HER-2/PEREZ negative, two sentinel nodes negative. -S/p RIGHT mastectomy with sentinel node bx by Dr. [facility] -Adriamycin/Cytoxan based chemotherapy started [...] tumor 2.2 cm ER positive, ND positive, HER-2/PEREZ negative, two sentinel nodes negative. -S/p RIGHT mastectomy with sentinel node bx by Dr. [facility] -Adriamycin/Cytoxan based chemotherapy started [...] tumor 2.2 cm ER positive, ND positive, HER-2/PEREZ negative, two sentinel nodes negative. -S/p RIGHT mastectomy with sentinel node bx by Dr. [facility] -Adriamycin/Cytoxan based chemotherapy started [...] tumor 2.2 cm ER positive, ND positive, HER-2/PEREZ negative, two sentinel nodes negative. -S/p RIGHT [facility] started Oct, completed [...] tumor 2.2 cm ER positive, ND positive, HER-2/PEREZ negative, two sentinel nodes negative. -S/p RIGHT [facility] started Oct, completed [...] Overview (06/22/2025): Lab Results Component Value Date [id number] 79.4 05/15/2025 [id number] 58.3 06/16/2024 [id number] 106.4 01/04/2024 Assessment & Plan (04/26/2025 4:15 PM EDT): Lab Results Component Value Date [id number] 58.3 06/16/2024 [id number] 106.4 01/04/2024 [id number] 76.8 09/22/2023 Orders: Vitamin D, 25-Hydroxy, Total, Immunoassay; Future Assessment & Plan (06/29/2024 3:39 PM EDT): Lab Results Component Value Date [id number] 58.3 06/16/2024 [id number] 106.4 01/04/2024 [id number] 76.8 09/22/2023 Assessment & Plan (12/14/2023 12:09 PM EST): Lab Results Component Value Date [id number] 76.8 09/22/2023 -Labs ordered for further evaluation: Vitmain D, 25-hydroxy, Total, Immunoassay. 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 Per Dr. Krish Loomis's note from [facility], pt was due for repeat [...] Per Dr. Krish Loomis's note from [facility], pt was due for repeat [...] Per Dr. Krish Loomis's note from [facility], pt was due for repeat [...] Dr. Krish Loomis's note from [facility] DRUGLESS PHYSICIAN, pt was due for repeat colposcopy in 2011. -Total Vaginal Hysterectomy 08/27/17 ('with MONICA 2 pathology and negative resection margins'). Per note dated 11/27/17 Dr. Reyes; 'patient to discontinue PAP screening'. -Vaginal pap NILM HPV negative 08/2018, per not no further paps indicated Severe episode of recurrent major depressive disorder, without psychotic features ([facility]) 04/19/2014 Overview (12/29/2024): -has therapist in [place] [...] Health Integration Plan Internal Follow up with [facility] Patient Self Plan Patient to utilize skills provided in intervention , Patient to reach out to [facility] team as needed, Patient to reach out to PSYCHIATRIC as needed, and will contact [facility] Intake number to connect with detention OP services, and psychiatrist. Rule Out Diagnoses: [...] as pharmacomtherapy, [facility] smoking cessation group, and [facility] pharmacy smoking cessation clinic Discussed USPSTF [...] as pharmacomtherapy, [facility] smoking cessation group, and [facility] pharmacy smoking cessation clinic Discussed USPSTF [...] as pharmacomtherapy, [facility] smoking cessation group, and [facility] pharmacy smoking cessation clinic Discussed USPSTF [...] as pharmacomtherapy, [facility] smoking cessation group, and [facility] pharmacy smoking cessation clinic Discussed USPSTF [...] as pharmacomtherapy, [facility] smoking cessation group, and [facility] pharmacy smoking cessation clinic Discussed USPSTF [...] as pharmacomtherapy, [facility] smoking cessation group, and [facility] pharmacy smoking cessation clinic Discussed USPSTF [...] of breath) 06/29/2024 Overview (12/29/2024): -Followed by [facility] Pulmonology with Sury Benitez NP -02/2024 RAST [...] Plan (12/29/2024 11:03 AM EST): -Followed by [facility] Pulmonology with Sury Benitez NP -02/2024 RAST [...] if needed. -pt reports she saw her mixing machine feeder and is continuing management with them. . Assessment & Plan (07/13/2024 2:15 PM EDT): -referred to pulmonology 06/29/24 -Pt reports she has appt to see mixing machine feeder 08/01/24 Assessment & Plan (06/29/2024 4:49 PM [...] flare 05/11/2024 12/29/2024 Overview (07/13/2024): Seen by film or tape librarian Dr. Bernstein 05/11/24 or evaluation of acute [...] Plan (07/13/2024 2:21 PM EDT): Seen by film or tape librarian Dr. Bernstein 05/11/24 or evaluation of acute [...] EDT): Patient requesting a Physical for her SHEARING MACHINE OPERATOR hours to be re-instated. On exam today, her vitals are stable and her exam seems unchanged from previous one. Work up in progress for her c/o bilateral foot pain Hospital discharge follow-up 06/18/2023 07/20/2023 Assessment & Plan (07/14/2023 10:23 AM EDT): Patient here for a HDF. She was admitted to [facility] from 06/05-06/08 . She presented with concerns [...] on scene within 10 minutes, transfer completed [facility] called with expect Hypertension 05/26/2023 12/14/2023 Assessment & Plan (05/26/2023 12:12 PM EDT): Not controlled today Pt says she took her Lisinopril and chlorthalidone this morning Hypokalemia 12/09/2022 10/27/2024 Hyperaldosteronism 11/16/2022 3 Overview (11/16/2022): Seen by [facility] Endocr[facility]ology 04/03/2022. Initially seen 12/2021 for hyperaldosteronism. Labs [facility] 10/2021 aldosterone 8, plasma renin 0.11, aldosterone/renin 72.7. She was likely on spironolactone and lisinopril at time of labs. Advise no spironolactone for 6 weeks and recheck renin aldosterone levels with renal panel and magnesium in menagerie caretaker. Assessment & Plan (11/16/2022 10:55 AM EST): Seen by [facility] Endocr[facility] 04/03/2022. Initially seen 12/2021 for hyperaldosteronism. Labs [facility] 10/2021 aldosterone 8, plasma renin 0.11, aldosterone/renin 72.7. She was likely on spironolactone and lisinopril at time of labs. Advise no spironolactone for 6 weeks and recheck renin aldosterone levels with renal panel and magnesium in menagerie caretaker. Generalized pain 09/14/2014 06/08/2025 Anxiety 04/19/2014 01/28/2024 Polysubstance abuse 04/19/2014 04/04/20 25 Encounters Date Type Department Care Team Description 09/07/2025 Orders Only GENERIC EXTERNAL DATA DEPARTMENT Provider, Generic External Data 09/06/2025 Orders Only [facility] External Provider, [facility] 09/05/2025 Orders Only [facility] [address] [place] [phone] Shereen Latham MD Hypomagnesemia (Primary Dx) 09/05/2025 Refill [facility] [address] [place] [address] Shereen Latham MD Pain; Chronic pain of both knees 09/01/2025 Patient Outreach [address] [phone] Shereen Latham MD Care Coordination ([facility] outreach for SDOH PT-1 and food needs-referral completed /) 09/01/[address] [address] Shereen Latham MD Referral; Lab Orders 09/01/[address] [address] Shereen Latham MD pt1 08/29/2025 Patient Outreach [facility] [address] [place] [address] Shereen Latham MD Care Coordination (Communication to pts assigned CP Coordinator ) 08/28/2025 Patient Outreach [facility] [address] [place] [address] Shereen Latham MD 08/28/2025 Patient Outreach [facility] [address] [place] [address] Shereen Latham MD Care Coordination (CP Care Coordination Chart Review) 08/28/2025 Patient Outreach [facility] [address] [place] [address] Shereen Latham MD Care Coordination ([facility] Ed F/U) 08/28/2025 Patient Outreach [address] [address] Shereen Latham MD 08/25/2025 11:00 AM EDT Office Visit [facility] [address] [place] [phone] Mayda Rush MD Prolonged QT syndrome (Primary Dx); Invasive ductal carcinoma of left breast (CMS/HCC) (HCC); Complex care coordination; Palpitations with regular cardiac rhythm; Chronic heart failure with preserved ejection fraction (HFpEF) (HCC); Hypomagnesemia 08/25/2025 Orders Only GENERIC EXTERNAL DATA DEPARTMENT Provider, Generic External Data 08/23/2025 Patient Outreach [facility] [address] [place] [address] Shereen Latham MD Care Coordination (Communication to pts assigned CP Coordinator) 08/15/[address] [address] Shereen Latham MD ER Follow-up 08/15/2025 Patient Outreach [facility] [address] [place] [phone] Shereen Latham MD Care Coordination (CP ED F/U) 08/15/2025 Patient Outreach [facility] [address] [place] [address] Shereen Latham MD Care Coordination (CP Chart review) 08/15/2025 Telephone [facility] [address] [place] [phone] Isa De La Rosa DDS rs no show appt 08/14/2025 Patient Outreach [facility] [address] [place] [phone] Shereen Latham MD 07/28/2025 Refill [facility] [address], [place] [phone] Tari Chance NP Pain 07/27/2025 Orders Only GENERIC EXTERNAL DATA DEPARTMENT Provider, Generic External Data Bilateral malignant neoplasm of breast in female, unspecified estrogen receptor status, unspecified site of breast (CMS/HCC) (Primary Dx) 07/25/2025 Telephone [facility] [address] [place] [phone] Shereen Latham MD Call Back Request 07/20/2025 1:15 PM EDT Office Visit [address] [address] Junie Padron MD Pain in both hands (Primary Dx); Bilateral hand pain 07/20/2025 Results Follow-Up [address] [address] Junie Padron MD C-reactive Protein, Sed Rate by Modified Westergren, Uric acid, XR Hand 3+Views Bilateral 07/20/2025 Travel 07/02/[address] [address] Shereen Latham MD Alcohol abuse 06/28/2025 Orders Only [facility] External Provider, [facility] Bilateral malignant neoplasm of breast in female, unspecified estrogen receptor status, unspecified site of breast (CMS/HCC) (Primary Dx); Abnormal mammogram 06/23/[address] [address] Shereen Latham MD 06/22/2025 11:15 AM EDT Office Visit [address] [address] Shereen Latham MD Trigger finger, unspecified finger, [...] specified health status 06/22/2025 Travel 06/21/[address] [address] Shereen Latham MD chartprep 06/16/2025 10:15 AM EDT Office Visit [facility] [address] [place] [phone] Naomi De Jesus ANP Right otitis media, unspecified otitis media type (Primary Dx); Heart failure with preserved ejection fraction, unspecified HF chronicity (CMS/HCC); Shortness of breath; Nasal congestion 06/16/2025 Telephone [facility] [address] [place] [phone] Isa De La Rosa DDS active requested appt 06/16/2025 Patient Outreach [facility] [address] [place] [address] Shereen Latham MD Care Coordination (Communication to PT assigned CP Coordinator) 06/16/2025 Travel 06/15/[address] [address] Shereen Latham MD ER Follow-up 06/15/2025 Patient Outreach [facility] [address] [place] [address] Shereen Latham MD Care Coordination ([facility] ED Follow Up) 06/15/2025 Patient Outreach [facility] [address] [place] [address] Shereen Latham MD Care Coordination (CP Care Coordination Chart Review) 06/15/2025 Patient Outreach [address] [address] Shereen Latham MD 06/15/2025 Patient Outreach [address] [address] Shereen Latham MD 06/14/2025 2:20 PM EDT Office Visit [facility] [address] [place] [address] Junie Damon MD Shortness of breath; Precordial pain 06/14/2025 Travel 06/14/2025 Orders Only [address] [address] Shereen Latham MD Sebaceous cyst of labia (Primary Dx) 06/09/[address] [address] Shereen Latham MD Referral 06/09/2025 Refill [facility] [address] [place] [address] Shereen Latham MD Pain 06/07/2025 6:00 PM EDT Office Visit [facility] [address] [place] [address] Tari Chance NP Cough in adult patient (Primary Dx); Viral illness; Elevated blood pressure reading in office with diagnosis of hypertension 06/07/2025 Travel 06/07/2025 Telephone [facility] [address] [place] [address] Shereen Latham MD Nurse Triage from Last [...] Description 09/13/2025 3:15 PM EST Office Visit [facility] [address] [place] [address] Shereen Latham MD [address] [place] [address] 10/02/2025 2:00 PM EST Office Visit [facility] [address] [place] [address] Isa De aL Rosa DDS [address], [place] [phone] Health Maintenance Due Date Last Done Comments [...] 03/30/2028 03/29/2025, 0901/2019 Lipid Panel 12/29/2029 12/29/2024, 0803/2024, 09/22/2023, Additional [...] AUTO DIFFERENTIAL Routine 09/07/2025 3:[address] CHEST WO CONTRAST Routine 09/06/2025 4:28 [...] 07/27/2025 7:47 AM EDT AMB REFERRAL TO OB-DRUGLESS PHYSICIAN Routine 07/24/2025 Sebaceous cyst of labia XR [...] Relevant to Health Maintenance Results * (ABNORMAL) NT-proBNP (09/07/2025 3:47 PM EST) NT-proBNP 516.7(H) <300 pg/mL [facility] Comment:Reference Range:Age Group (years) NT-proBNP (pg/ml) InterpretationAll <300 Negative: HF unlikelyFor patients presenting to the ED with clinical suspicion ofnew onset or worsening HF, see below:18 to <50 >299.9 to <450.0 Grayzone: [id number] to 75 >299.9 to <900.0 other causes of>75 >299.9 to <1800.0 NT-proBNP [id number] to <50 >449.9 Positive: HF [id number] >899.9>75 >1799.9Note: Elevated NT-proBNP levels should be interpreted inthe context of other clinical information. 09/07/2025 3:47 PM EST 09/07/2025 5:36 PM EST us Generic External Data Provider LAB BLOOD ORDERAB LES Final Result [facility] [address] [place], [place] [phone] * (ABNORMAL) CBC auto differential (09/07/2025 3:47 PM EST) Only the most recent of2 resultswithin the time period is included. White Blood Count 9.6 4.8 - 10.8 X10*3/uL [facility] Red Blood Count 3.89(L) 4.20 - 5.50 X10*6/uL [facility] Hemoglobin 10.9(L) 12.0 - 16.0 g/dl [facility] Hematocrit 34.0(L) 37.0 - 47.0 % [facility] Mean Corpuscular Volume 87.4 80.0 - 98.0 fL [facility] Mean Corpuscular Hemoglobin 28.0 27.0 - 33.0 pg [facility] Mean Corpuscular HGB Conc 32.1 31.0 - 35.0 g/dl [facility] Red Cell Distribution Width 14.2 11.0 - 16.0 % [facility] Platelet Count 316 160 - 400 X10*3/uL [facility] Mean Platelet Volume 11.0 9.4 - 12.3 fL [facility] Neutrophils Percent Auto 54.5 45 - 73 % [facility] Imm Gran Pct Auto 0.4 0.0 - 0.4 % [facility] Lymphocytes Percent Auto 34.7 20 - 40 % [facility] Monocytes Percent Auto 7.1 2 - 11 % [facility] Eosinophils Percent Auto 2.7 0 - 4 % [facility] Basophils Percent Auto 0.6 0 - 2 % [facility] NRBC Pct Auto 0.0 0.0 - 0.2 /100WBC [facility] Neutrophils Absolute Auto 5.2 2.0 - 8.3 x10*3/uL [facility] Imm Gran Abs Auto 0.04(H) 0.00 - 0.03 X10*3/uL [facility] Lymphocytes Absolute Auto 3.3 1.2 - 4.9 X10*3/uL [facility] Monocytes Absolute Auto 0.7 0.1 - 1.2 X10*3/uL [facility] Eosinophils Absolute Auto 0.3 0.0 - 0.4 X10*3/uL [facility] Basophils Absolute Auto 0.1 0.0 - 0.2 X10*3/uL [facility] NRBC Abs Auto 0.000 0.0 - 0.012 X10*3/uL [facility] 09/07/2025 3:47 PM EST 09/07/2025 5:36 PM EST us Generic External Data Provider LAB BLOOD ORDERAB LES Final Result [facility] [address] [place] [phone] * CT Chest w/o Contrast (09/06/2025 4:28 PM EST) Anatomical Region Laterality Modality Body, Chest Computed Tomogra phy 09/06/2025 4:28 PM EST Narrative 09/06/2025 5:27 PM EST [address] [address] [address] Scan Report Signed Patient: Azra Cast MR#: [id number] : 1975 Acct:[id number] Age/Sex: 49 / F ADM Date: 09/06/25 Loc: HO.CT Attending Dr: Sury Benitez NP Ordering Physician: Sury Benitez NP Date of Service: 09/06/25 Procedure(s): CT chest wo IV con Accession Number(s): [id number] cc: Shereen Latham MD; Sury Benitez NP Report Number: [id number]: Total DLP = 198.00 mGy-cm Reason for [...] by: Chandrika Garg MD 09/06/2025 05:23 PM [facility] Dictated By: Chandrika Garg MD Signed By: <Electronically signed by Chandrika Garg MD in OV> 09/06/25 1723 DD/ 1628 TD/TT: 09/06/25 1640 Head Chef: CAROLINE Procedure Note Donotuseinterpreter, Image - 09/06/[address] [place] [address] [address] Scan Report Signed Patient: Maged Cast#: [id number] : 1975Acct:[id number] Age/Sex: 49 / FADM Date: 09/06/25 Loc: HO.CT Attending Dr: Sury Benitez NP Ordering Physician: Sury Benitez NP Date of Service: 09/06/25 Procedure(s): CT chest wo IV con Accession Number(s): [id number] cc: Shereen Latham MD; Sury Benitez NP Report Number: [id number]: Total DLP = 198.00 mGy-cm Reason for [...] 09/06/25 1723 DD/ 1628 TD/TT: 09/06/25 1640 Head Chef: CAROLINE [facility] External Provider IMG CT PROCEDURES Final [...] PM EDT Narrative 08/25/2025 3:53 PM EDT [address] [address] [address] Scan Report Signed Patient: Azra Cast MR#: [id number] : 1975 Acct:[id number] Age/Sex: 49 / F ADM Date: 08/25/25 Loc: HO.ED Attending Dr: Ordering Physician: Leighann Ordonez DO Date of Service: 08/25/25 Procedure(s): CT head/brain wo IV con Accession Number(s): [id number] cc: Shereen Latham MD; Leighann Ordonez DO Report Number: [id number]: Total DLP = 712.00 mGy-cm Reason for [...] 08/25/25 1550 DD/ 1528 TD/TT: 08/25/25 1538 Head Chef: CAROLINE Procedure Note Donotuseinterpreter, Image - 08/25/[address] [address] [address] Scan Report Signed Patient: Maged Cast#: [id number] : 1975Acct:[id number] Age/Sex: 49 / FADM Date: 08/25/25 Loc: HO.ED Attending Dr: Ordering Physician: Leighann Ordonez DO Date of Service: 08/25/25 Procedure(s): CT head/brain wo IV con Accession Number(s): [id number] cc: Shereen Latham MD; Leighann Ordonez DO Report Number: [id number]: Total DLP = 712.00 mGy-cm Reason for [...] 08/25/25 1550 DD/ 1528 TD/TT: 08/25/25 1538 Head Chef: CAROLINE [facility] External Provider IMG CT PROCEDURES Final Result * High Sensitivity Troponin I (08/25/2025 12:45 PM EDT) Only the most recent of2 resultswithin the time period is included. [facility] TROPONIN I HIGH SENSITIVITY 12.2 <3.5 - 17.0 ng/L [facility] Comment:The [place] high sens itivity Troponin-I results should beused in conjunction with other diagnostic information suchas ECG, clinical observations and information, and patientsymptoms to aid in the diagnosis of [place]. 08/25/2025 12:4 5 PM EDT 08/25/2025 12:52 PM EDT Generic External Data Provider LAB BLOOD ORDERAB LES Final Result Performing Organization Address [facility] de Phone Number [facility] [address] [place] [phone] * Ethanol (08/25/2025 12:45 PM EDT) [facility] ETHANOL (MG/DL) IN SER/PLAS 11 mg/dL [facility] Comment:Serum/plasma ethanol results are to be used formedical/treatment purposes only. 08/25/2025 12:4 5 PM EDT 08/25/2025 12:52 PM EDT Generic External Data Provider LAB BLOOD ORDERAB LES Final Result Performing Organization Address [facility] de Phone Number [facility] [address] [place] [phone] * TSH with Reflex to Free T4 (08/25/2025 12:45 PM EDT) [facility] TSH reflex Free T4 0.94 0.32 - 4.0 uIU/mL [facility] 08/25/2025 12:4 5 PM EDT 08/25/2025 12:52 PM EDT Generic External Data Provider LAB BLOOD ORDERAB LES Final Result Performing Organization Address [facility] de Phone Number [facility] [address] [place] [address] [phone] * (ABNORMAL) Magnesium (08/25/2025 12:45 PM EDT) Pathologist [facility] Magnesium 1.4(LL) 1.6 - 2.6 mg/dL [facility] Comment:Critical value for M AGS: Results called to and read backby: DANIE Person calling: SARAHLUCIA Date: 08/25/25 Time:1320 08/25/2025 12:4 5 PM EDT 08/25/2025 12:52 PM EDT Generic External Data Provider LAB BLOOD ORDERAB LES Final Result Performing Organization Address [facility] Phone Number [facility] [address] [place] [phone] * (ABNORMAL) Hepatic Function Panel (08/25/2025 12:45 PM EDT) Pathologist [facility] Bilirubin, Total 0.3 0.0 - 1.0 mg/dL [facility] Bilirubin, Direct 0.1 0.0 - 0.5 mg/dL [facility] Aspartate Amino Transferase 21 5 - 31 U/L [facility] Alanine Aminotransferase 18 0 - 31 U/L [facility] Total Protein 7.1 6.5 - 8.0 g/dL [facility] Albumin Level 4.3 3.5 - 5.0 g/dL [facility] Alkaline Phosphatase 129(H) 39 - 117 U/L [facility] 08/25/2025 12:4 5 PM EDT 08/25/2025 12:52 PM EDT Generic External Data Provider LAB BLOOD ORDERAB LES Final Result Performing Organization Address [facility] de Phone Number [facility] [address] [place] [phone] * (ABNORMAL) Basic Metabolic Panel (08/25/2025 12:45 PM EDT) Sodium 141 135 - 145 mmol/L [facility] Potassium 3.9 3.3 - 5.1 mmol/L [facility] Chloride 107 96 - 108 mmol/L [facility] Carbon Dioxide 25 22 - 29 mmol/L [facility] Anion Gap 13 12 - 20 [facility] Urea Nitrogen (BUN) 19(H) 9 - 16 mg/dL [facility] Creatinine, Serum 0.89 0.5 - 1.4 mg/dL [facility] Creatinine Clr Calc Pharmacy 85.7 [facility] Comment:Provided height and weight: 170.18 cm,89.176 kg.eGFR (calculated from the MDRD study equation) and eCrCl(calculated from the Cockcroft-Gault equation) are based ondifferent parameters and may not yield comparable results.If eCrCl result is absurd, please check patient'sheight/weight. Estimated Glomerular Filt Rate >60 [facility] Comment:Chronic Kidney Disea se: Estimated GFR < 60 mL/min/1.74h7Eejhhn Kidney Disease: Estimated GFR < 15 mL/min/1.73m2 Glucose 154(H) 60 - 115 mg/dL [facility] Calcium 9.2 8.4 - 10.2 mg/dL [facility] 08/25/2025 12:4 5 PM EDT 08/25/2025 12:52 PM EDT us Generic External Data Provider LAB BLOOD ORDERAB LES Final Result [facility] [address] [place] [address] [phone] * Hematoxylin and Eosin Stain (07/27/2025 10:31 AM EDT) 07/27/2025 10:3 1 AM EDT 07/27/2025 11:18 AM EDT Narrative [facility] - 07/29/2025 10:20 AM EDT ----- ------- Name: Azra Cast Age/Sex: 49/F : 1975 Unit#: [id number] Attend Dr: Aaron Pringle MD Re07/27/25 Status: [facility] Location: [facility] Disch: ----- ------- SPEC : [id number] RECD: 07/27/25-1118 STATUS: KVNGMelquiades NATHALY NUM: [id number] MAYA: 07/27/25-1031 [facility] DR: Aaron Pringle MD ENTERED: 07/27/25-1144 SP TYPE: Surgical OTHR DR: Shereen Latham MD ORDERED: HE Stain/2, Gross Micro L5/2, Cytokeratin/2, IHC Diagnosis A. Lymph node, sentinel #1, excision: One lymph node with isolated tumor cells (highlighted by leary-cytokeratin) (see comment). B. Additional axillary tissue, excision: Benign adipose tissue; no lymph nodes found. COMMENT: Note is made of the patient's recent breast lumpectomy ([id number]). The final pathologic stage is pT1bN0(i+). Clinical History Pre-Op Dx: Malignant neoplasm of unspecified site Post-Op Dx: Malignant neoplasm of left breast Microscopic Description Microscopic sections reviewed. The immunostain for leary-cytokeratin highlights isolated tumor cells in one sentinel lymph node in part A. Material Received A. [place] node #1 1982 B. Additional axillary tissue Gross Description Received in 2 parts. A. Received in formalin labeled sentinel node#1 is an oval mass of yellow adipose [...] and 3 pieces in cassette B 5. ([facility]) Special stains ordered and performed: Immunostain for leary-cytokeratin on A1 and A2. CONTINUED ON NEXT PAGE ----- ------- Name: Azra Cast Age/Sex: 49/F : 1975 Unit#: [id number] Attend Dr: Aaron Pringle MD Re07/27/25 Status: [facility] Location: [facility] Disch: ----- ------- SPEC : [id number] RECD: 07/27/25-111 STATUS: CRAIG ANDERSEN NUM: [id number] MAYA: 07/27/25-103 [facility] DR: Aaron Pringle MD ENTERED: 07/27/25-1144 SP TYPE: Surgical OTHR DR: Shereen Latham MD ORDERED: HE Stain/2, Gross Micro L5/2, Cytokeratin/2, IHC IHC S/NG Disclaimer NOTE: Unless otherwise stated, all tissue is formalin-fixed and paraffin-embedded. Some or all of the immunohistochemical tests reported herein may have been developed and their performance characteristics determined by [facility]. They have not been cleared or approved by the U.S. Food and Drug Administration (FDA). However, the FDA has determined that such clearance or approval is not necessary. This laboratory is certified under the Clinical Laboratory Improvement Amendments of 1988 (CLIA) as qualified to perform high complexity clinical laboratory testing. Copies To: Shereen Latham MD [address] [phone] Aaron Pringle MD [facility] [address] [place] [address] [phone] ----- ------- Signed (signature on file) Xiomara Rowan MD 07/29/25 1020 ----- ------- END OF REPORT us Generic External Data Provider LAB BLOOD ORDERAB LES Final Result [facility] [address] [place] [address] [phone] * NM SENTINEL NODE W IMAGING (07/27/2025 7:47 AM EDT) Anatomical Region Laterality Modality Nuclear Medicine 07/27/2025 7:47 AM EDT Narrative 07/27/2025 11:07 AM EDT [address] [address] Nuclear Medicine Report Signed Patient: Azra Cast MR#: [id number] : 1975 Acct:[id number] Age/Sex: 49 / F ADM Date: 07/27/25 Loc: .[facility] Attending Dr: Aaron Pringle MD Ordering Physician: Aaron Pringle MD Date of Service: 07/27/25 Procedure(s): NM sentinel node w imaging Accession Number(s): [id number] cc: Shereen Latham MD; Aaron Pringle MD [...] 07/27/25 1104 DD/ 0747 TD/TT: 07/27/25 0910 Head Chef: [facility] Procedure Note Donotuseinterpreter, Image - 07/27/[address] [address] Nuclear Medicine Report Signed Patient: Maged Cast#: [id number] : 1975Acct:[id number] Age/Sex: 49 / FADM Date: 07/27/25 Loc: .[facility] Attending Dr: Aaron Pringle MD Ordering Physician: Aaron Pringle MD Date of Service: 07/27/25 Procedure(s): NM sentinel node w imaging Accession Number(s): [id number] cc: Shereen Latham MD; Aaron Pringle MD [...] OV> 07/27/25 1104 DD/ 0747 TD/TT: 07/27/25 09 Head Chef: FARIBA [facility] External Provider IMG NM PROCEDURES Final Result * Referral to Obstetrics / Gynecology (07/24/2025) Shereen Latham MD OUTPATIENT REFERRAL ORDERA BLES Final Result * XR Hand 3+Views Bilateral (07/20/2025 2:25 PM EDT) Anatomical Region Laterality Modality Upper Extremities, Hand Bilateral Radiogra phic Imaging 07/20/2025 2:25 PM EDT Narrative 07/20/2025 2:41 PM EDT [address] [address] XRay Report Signed Patient: Azra Cast MR#: [id number] : 1975 Acct:[id number] Age/Sex: 49 / F ADM Date: 07/20/25 Loc: [facility] Attending Dr: Shereen Latham MD Ordering Physician: Junie Padron MD Date of Service: 07/20/25 Procedure(s): XR Hand Bilat min 3v Accession Number(s): [id number] cc: Shereen Latham MD; Junie Padron MD [...] Julian Garcia MD 07/20/2025 02:38 PM EDT Dictated By: Julian Garcia MD Signed By: <Electronically signed by Julian Garcia MD in OV> 07/20/25 1438 DD/ 142 TD/TT: 07/20/25 142 Head Chef: Procedure Note Donotuseinterpreter, Image - 07/20/[address] [address] XRay Report Signed Patient: Maged Cast#: [id number] : 1975Acct:[id number] Age/Sex: 49 / FADM Date: 07/20/25 Loc: [facility] Attending Dr: Shereen Latham MD Ordering Physician: Junie Padron MD Date of Service: 07/20/25 Procedure(s): XR Hand Bilat min 3v Accession Number(s): [id number] cc: Shereen Latham MD; Junie Padron MD [...] 07/20/25 1438 DD/ 1425 TD/TT: 07/20/25 1427 Head Chef: Junie Raygoza MD IMG XR PROCEDURES Final Result * (ABNORMAL) Sed Rate by Modified [place] (07/20/2025 1:55 PM EDT) Erythrocyte Sedimentation Rate 34(H) 0 - 20 MM/HR [facility] Comment:Patients with polycy themia and many hemoglobin abnormalitiesmay have depressed sed rates whereas patients with anemiamay have elevated sed rates. Blood Venous blood specimen / Unknown 07/20/2025 1:55 PM EDT 07/20/2025 4:03 PM EDT Junie Raygoza MD LAB BLOOD ORDERAB LES Final Result Performing Organization Address [facility] de Phone Number [facility] [address] [place] [phone] * (ABNORMAL) C-reactive Protein (07/20/2025 1:55 PM EDT) C Reactive Protein 2.46(H) < or = 0.50 mg/dL [facility] Blood Venous blood specimen / Unknown 07/20/2025 1:55 PM EDT 07/20/2025 4:46 PM EDT Junie Raygoza MD LAB BLOOD ORDERAB LES Final Result Performing Organization Address [facility] Phone Number [facility] [address] [place] [phone] * Uric acid (07/20/2025 1:55 PM EDT) Uric Acid 5.7 2.4 - 5.7 mg/dL [facility] Blood Venous blood specimen / Unknown 07/20/2025 1:55 PM EDT 07/20/2025 4:46 PM EDT Junie Raygoza MD LAB BLOOD ORDERAB LES Final Result Performing Organization Address [facility] Co de Phone Number [facility] [address] [place] [phone] * Gross and Microscopic Level 5 (06/28/2025 10:55 AM EDT) 06/28/2025 10:5 5 AM EDT 06/28/2025 11:08 AM EDT Narrative [facility] - 07/05/2025 2:23 PM EDT ----- ------- Name: Azra Cast Age/Sex: 49/F : 1975 Unit#: [id number] Attend Dr: Aaron Pringle MD Re06/28/25 Status: [facility] Location: [facility] Disch: ----- ------- SPEC : [id number] RECD: 06/28/25-1108 STATUS: CRAIG ANDERSEN NUM: [id number] MAYA: 06/28/25-1055 [facility] DR: Aaron Pringle MD ENTERED: 06/28/25-1111 SP TYPE: Surgical OTHR DR: Shereen Latham MD ORDERED: Gross Micro L5, ER, ND, IOC, IHC, Add. immunos, IHC ER/ND/Her2N/4, Ki-67, p63, SMM, [id number] Diagnosis Breast, left, lumpectomy: - Invasive ductal [...] from posterior Lymph nodes Number examined: 0 [place] nodes: 0 Axillary nodes: 0 CONTINUED ON NEXT PAGE ----- ------- Name: Azra Cast Age/Sex: 49/F : 1975 Unit#: [id number] Attend Dr: Aaron Pringle MD Re06/28/25 Status: [facility] Location: [facility] Disch: ----- ------- SPEC : [id number] RECD: 06/28/25-1108 STATUS: CRAIG ANDERSEN NUM: [id number] MAYA: 06/28/25-1055 [facility] DR: Aaron Pringle MD ENTERED: 06/28/25-1111 SP TYPE: Surgical OTHR DR: Shereen Latham MD ORDERED: Gross Micro L5, ER, ND, IOC, IHC, Add. immunos, IHC ER/ND/Her2N/4, Ki-67, p63, SMM, [id number] Diagnosis (Continued) Number involved: N/A With macrometastases: N/A With micrometastases: N/A With isolated tumor cells: N/A Extranodal extension: N/A Size of largest met. deposit: N/A Treatment effect Breast: Not identified Lymph nodes: Not identified TNM: pT1b NX Ancillary studies: ER positive, ND positive, HER2 negative (0), low proliferation Clinical [...] Name: Azra Cast Age/Sex: 49/F : 1975 [id number]#: [id number] Attend Dr: Aaron Pringle MD Re06/28/25 Status: [facility] Location: [facility] Disch: ----- ------- SPEC : [id number] RECD: 06/28/25-1107 STATUS: CRAIG ANDERSEN NUM: [id number] MAYA: 06/28/25-[address]: Aaron Pringle MD ENTERED: 06/28/25-1110 SP TYPE: Surgical OTHR DR: Shereen Latham MD ORDERED: Gross Micro L5, ER, ND, IOC, IHC, Add. immunos, IHC ER/ND/Her2N/4, Ki-67, p63, SMM, [id number] Gross Description (Continued) fatty parenchyma is otherwise unremarkable without additional discrete abnormality. Fence Manufacture Supervisor sections to include entire area of [...] Envision+ Dual Link System-HRP. Progesterone receptor: Clone [id number]; [employer] 4 detection system. Her-2/perez immunohistochemistry performed in accordance with ASCO/CAP recommendations (2007) and update (2013). Hercep Test Detection system: Polymer type Scoring criteria: For ER/ND and Her-2/perez: All internal (if present) and external controls react appropriately. CONTINUED ON NEXT PAGE ----- ------- Name: Azra Cast Age/Sex: 49/F : 1975 Unit#: [id number] Attend Dr: Aaron Pringle MD Re06/28/25 Status: [facility] Location: [facility] Disch: ----- ------- SPEC : [id number] RECD: 06/28/25-1108 STATUS: CRAIG ANDERSEN NUM: [id number] MAYA: 06/28/25-1055 [facility] DR: Aaron Pringle MD ENTERED: 06/28/25-1110 SP TYPE: Surgical OTHR DR: Shereen Latham MD ORDERED: Gross Micro L5, ER, ND, IOC, IHC, Add. immunos, IHC ER/ND/Her2N/4, Ki-67, p63, SMM, [id number] Gross Description (Continued) ER and ND immunostains are scored as Positive (> 10% [...] Arch of Pathol Lab Med, 142 2018: 1982-6691. Marce KH, Margot VASQUEZ, et al. Estrogen and Progesterone Receptor Testing in Breast Cancer: ASCO/CAP Guideline Update. Arch of Pathol Lab Med, 144 2020: 545-563. Thanh N, Cristel P, et al. Adjuvant abemaciclib combined with endocrine therapy for high- risk early breast cancer: updated efficacy and Ki-67 analysis from the monarchE study. Jennie Oncol. 2020;32(12):7311-0841. This case was reviewed intradepartmentally; results were communicated to Dr. Pringle on 07/05/2025. Special studies ordered and performed: Immunostains for ER, ND, HER2, Ki 67, p63 and smooth muscle myosin IHC S/NG Disclaimer NOTE: Unless otherwise stated, all tissue is formalin-fixed and paraffin-embedded. Some or all of the immunohistochemical tests reported herein may have been developed and their performance characteristics determined by [facility]. They have not been cleared or [...] Azra Cast Age/Sex: 49/F : 1975 Unit#: [id number] Attend Dr: Aaron Pringle MD Re06/28/25 Status: [facility] Location: [facility] Disch: ----- ------- SPEC : [id number] RECD: 06/28/25-8 STATUS: CRAIG ANDERSEN NUM: [id number] MAYA: 06/28/25-1055 [facility] DR: Aaron Pringle MD ENTERED: 06/28/25-1110 SP TYPE: Surgical OTHR DR: Shereen Latham MD ORDERED: Gross Micro L5, ER, ND, IOC, IHC, Add. immunos, IHC ER/ND/Her2N/4, Ki-67, p63, SMM, [id number] Copies To: Shereen Latham MD [address] [address] Aaron Pringle MD [facility] General Surgeons [address] [place] [phone] ----- ------- Signed (signature on file) Beck Whatley MD 07/05/25 1423 ----- ------- END OF REPORT us Generic External Data Provider LAB BLOOD ORDERAB LES Final Result Performing Organization Address City/State/[facility] Co de Phone Number [facility] [address] [place] [address] [phone] * BI MM SURGICAL SPECIMEN (06/28/2025 10:13 AM EDT) Anatomical Region Laterality Modality Breast Bilateral Mammography 06/28/2025 10:1 3 AM EDT Narrative 06/28/2025 11:09 AM EDT [address] [address] [id number] Mammography Report Signed Patient: Azra Cast MR#: [id number] : 1975 Acct:[id number] Age/Sex: 49 / F ADM Date: 06/28/25 Loc: .[facility] Attending Dr: Aaron Pringle MD Ordering Physician: Aaron Pringle MD Results: Date of Service: 06/28/25 Follow Up: Procedure(s): MM surgical specimen Accession Number(s): [id number] cc: Shereen Latham MD; Aaron Pringle MD Single left breast specimen radiograph demonstrates a tag with the barbell clip and a second tag with a top hat clip. Electronically signed by: Cara Rodriges DO 06/28/2025 11:07 AM EDT RP Dictated By: Cara Rodriges DO Signed By: <Electronically signed by Cara Rodriges DO in OV> 06/28/25 1107 DD/ 1013 TD/TT: 06/28/25 1104 Head Chef: Procedure Note Donotuseinterpreter, Image - 06/28/[address] [address] [id number] Mammography Report Signed Patient: Maged Cast#: [id number] : 1975Acct:[id number] Age/Sex: 49 / FADM Date: 06/28/25 Loc: [facility] Attending Dr: Aaron Pringle MD Ordering Physician: Aaron Pringleesults: Date of Service: 06/28/25Follow Up: Procedure(s): MM surgical specimen Accession Number(s): [id number] cc: Shereen Latham MD; Aaron Pringle MD Single left breast specimen radiograph demonstrates a tag with the barbell clip and a second tag with a top hat clip. Electronically signed by: Cara Rodriges DO 06/28/2025 11:07 AM EDT RP Dictated By: Cara Rodriges DO Signed By: <Electronically signed by Cara Rodriges DO in OV> 06/28/25 1107 DD/ 1013 TD/TT: 06/28/25 1104 Head Chef: us [facility] External Provider IMG BI PROCEDURES Edited Result - Final * XR Chest 1 View (06/14/2025 12:37 PM EDT) Anatomical Region Laterality Modality Chest Radiographic Celina ging 06/14/2025 12:3 7 PM EDT Narrative 06/14/2025 1:54 PM EDT [address] [address] XRay Report Signed Patient: Azra Cast MR#: [id number] : 1975 Acct:[id number] Age/Sex: 49 / F ADM Date: 06/14/25 Loc: HO.ED Attending Dr: Ordering Physician: Corrina Badillo PA-C Date of Service: 06/14/25 Procedure(s): XR chest 1V Accession Number(s): [id number] cc: Shereen Latham MD; Corrina Badillo PA-C [...] 06/14/25 1351 DD/ 1237 TD/TT: 06/14/25 1348 Head Chef: Procedure Note Donotuseinterpreter, Image - 06/14/[address] [address] XRay Report Signed Patient: Nicolas CastR#: [id number] : 1975Acct:[id number] Age/Sex: 49 / FADM Date: 06/14/25 Loc: .ED Attending Dr: Ordering Physician: Corrina Badillo PA-C Date of Service: 06/14/25 Procedure(s): XR chest 1V Accession Number(s): [id number] cc: Shereen Latham MD; Corrina Badillo PA-C [...] 06/14/25 1351 DD/ 1237 TD/TT: 06/14/25 1348 Head Chef: [facility] External Provider IMG XR PROCEDURES Final Result * POCT Rapid Influenza A ORELLANA ID NOW (06/14/2025 12:00 PM EDT) Only the most recent of2 resultswithin the time period is included. Influenza A Negative Negative, Indeterminate [facility] QC Media Lot # [id number] [facility] Lot# Expiration Date [facility] Swab 06/14/2025 12:0 0 PM EDT Junie Upton MD POINT OF CARE TEST EN TER/EDIT ORDERABLES Final Result [facility] [address] [place] [phone] * POCT Rapid Influenza B ORELLANA ID NOW (06/14/2025 11:57 AM EDT) Only the most recent of2 resultswithin the time period is included. Influenza B Negative Negative, Indeterminate [facility] QC Media Lot # [id number] [facility] Lot# Expiration Date [facility] Swab 06/14/2025 11:5 7 AM EDT us Junie Upton MD POINT OF CARE TEST EN TER/EDIT ORDERABLES Final Result [facility] [address] [place] [phone] * POCT Rapid Covid-19 BinaxNOW (06/14/2025 [...] AM EDT Narrative 06/14/2025 11:42 AM EDT [address] [place] [address] Mammography Report Signed Patient: Azra Cast MR#: [id number] : 1975 Acct:[id number] Age/Sex: 49 / F ADM Date: 06/14/25 Loc: MAMMO Attending Dr: Aaron Pringle MD Ordering Physician: Aaron Pringle MD Results: Date of Service: 06/14/25 Follow Up: Procedure(s): MM RF Tag device add Accession Number(s): [id number] cc: Shereen Latham MD; Aaron Pringle MD [...] ANESTHESIA: carbonated lidocaine 1%: . LOCALIZATION SYSTEM: -[employer] LOCallizer Wire-Free Guidance System with 12g needle applicator. -Length: 7 cm. 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 TARGET: Top hat clip. ANESTHESIA: carbonated lidocaine . LOCALIZATION SYSTEM: -[employer]ights[employer] LOCallizer Wire-Free Guidance System with 12g needle applicator. -Length: 7 cm. -RADIOFREQUENCY TAG: ID # [id number] RF Tag ID confirmed with LOCalizer Guidance [...] 06/14/25 1139 DD/ 1000 TD/TT: 06/14/25 1100 Head Chef: Procedure Note Donotuseinterpreter, Image - 06/14/2025 [facility] [address] [place] [address] [place] [address] Mammography Report Signed Patient: Maged Cast#: [id number] : 1975Acct:[id number] Age/Sex: 49 / FADM Date: 06/14/25 Loc: CHICHIO Attending Dr: Aaron Pringle MD Ordering Physician: Aaron Pringle MDResults: Date of Service: 08/13/25Follow Up: Procedure(s): MM RF Tag device add Accession Number(s): [id number] cc: Shereen Latham MD; Aaron Pringle MD [...] ANESTHESIA: carbonated lidocaine 1%: . LOCALIZATION SYSTEM: -[employer] LOCallizer Wire-Free Guidance System with 12g needle applicator. -Length: 7 cm. 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 TARGET: Top hat clip. ANESTHESIA: carbonated lidocaine . LOCALIZATION SYSTEM: -[employer] LOCallizer Wire-Free Guidance System with 12g needle applicator. -Length: 7 cm. -RADIOFREQUENCY TAG: ID # [id number] RF Tag ID confirmed with LOCalizer Guidance [...] 06/14/25 1139 DD/ 1000 TD/TT: 06/14/25 1100 Head Chef: [facility] External Provider IMG BI PROCEDURES Final Result * MM RF Tag Device Left (06/14/2025 10:00 AM EDT) Anatomical Region Laterality Modality Breast Left Mammography 06/14/2025 10:0 0 AM EDT Narrative 06/14/2025 11:42 AM EDT [facility] [address] [place], [place] [address] Mammography Report Signed Patient: Azra Cast MR#: [id number] : 1975 Acct:[id number] Age/Sex: 49 / F ADM Date: 06/14/25 Loc: HO.MAMMO Attending Dr: Aaron Pirngle MD Ordering Physician: Aaron Pringle MD Results: Date of Service: 06/14/25 Follow Up: Procedure(s): MM RF Tag device LT Accession Number(s): [id number] cc: Shereen Latham MD; Aaron Pringle MD [...] ANESTHESIA: carbonated lidocaine 1%: . LOCALIZATION SYSTEM: -[employer] LOCallizer Wire-Free Guidance System with 12g needle applicator. -Length: 7 cm. 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 TARGET: Top hat clip. ANESTHESIA: carbonated lidocaine . LOCALIZATION SYSTEM: -[employer] LOCallizer Wire-Free Guidance System with 12g needle applicator. -Length: 7 cm. -RADIOFREQUENCY TAG: ID # [id number] RF Tag ID confirmed with LOCalizer Guidance [...] 06/14/25 1139 DD/ 1000 TD/TT: 06/14/25 1100 Head Chef: Procedure Note Donotuseinterpreter, Image - 06/14/2025 [facility] [address] [place] [address] Mammography Report Signed Patient: Maged Cast#: [id number] : 1975Acct:[id number] Age/Sex: 49 / FADM Date: 06/14/25 Loc: ALBERTO Attending Dr: Aaron Pringle MD Ordering Physician: Aaron Pringleesults: Date of Service: 06/14/25Follow Up: Procedure(s): MM RF Tag device LT Accession Number(s): [id number] cc: Shereen Latham MD; Aaron Pringle MD [...] ANESTHESIA: carbonated lidocaine 1%: . LOCALIZATION SYSTEM: -[employer] LOCallizer Wire-Free Guidance System with 12g needle applicator. -Length: 7 cm. 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 TARGET: Top hat clip. ANESTHESIA: carbonated lidocaine . LOCALIZATION SYSTEM: -[employer] LOCallizer Wire-Free Guidance System with 12g needle applicator. -Length: 7 cm. -RADIOFREQUENCY TAG: ID # [id number] RF Tag ID confirmed with LOCalizer Guidance [...] 06/14/25 1139 DD/ 1000 TD/TT: 06/14/25 1100 Head Chef: [facility] External Provider IMG BI PROCEDURES Final Result * BI Mammogram Diagnostic Tomosynthesis Left (06/01/2025 11:25 AM EDT) Anatomical Region Laterality Modality Breast Left Mammography 06/01/2025 11:2 5 AM EDT Narrative 06/01/2025 1:24 PM EDT [place] [address] [id number] Mammography Report Signed with Addenda Patient: Azra Cast MR#: [id number] : 1975 Acct:[id number] Age/Sex: 49 / F ADM Date: 06/01/25 Loc: HO.MRI Attending Dr: Aaron Pringle MD Ordering Physician: Aaron Pringle MD Results: 1Nega tive Date of Service: 06/01/25 Follow Up: 1 Year From Orig inal Mammogram Procedure(s): MM tomosynthesis diagnostic LT Accession Number(s): [id number] cc: Shereen Latham MD; Aaron Pringle MD [...] and with use of Gadavist gadolinium contrast. [employer] introducer localization system is used with grid. LESION: Retroareolar region middle depth. LOCAL ANESTHESIA: 6 mL 1% lidocaine; 10 mL 1% lidocaine with epinephrine. NEEDLE: [employer] 9-gauge vacuum assisted core biopsy device. APPROACH: [...] OV> 06/01/25 1321 DD/ 24 TD/TT: 06/01/25 1150 Head Chef: Procedure Note Donotuseinterpreter, Image - 06/07/[address] [address] [id number] Mammography Report Signed with Addenda Patient: Maged Cast#: [id number] : 1975Acct:[id number] Age/Sex: 49 / FADM Date: 06/01/25 Loc: HO.MRI Attending Dr: Aaron Pringle MD Ordering Physician: Aaron Pringle MDResults: 1Nega tive Date of Service: 06/01/25Follow Up: 1 Year From Orig inal Mammogram Procedure(s): MM tomosynthesis diagnostic LT Accession Number(s): [id number] cc: Shereen Latham MD; Aaron Pringle MD [...] and with use of Gadavist gadolinium contrast. [employer] introducer localization system is used with grid. LESION: Retroareolar region middle depth. LOCAL ANESTHESIA: 6 mL 1% lidocaine; 10 mL 1% lidocaine with epinephrine. NEEDLE: [employer] 9-gauge vacuum assisted core biopsy device. APPROACH: [...] 06/01/25 1321 DD/ 1125 TD/TT: 06/01/25 1150 Head Chef: [facility] External Provider IMG BI PROCEDURES Edited Result - Final * (ABNORMAL) Lipid Panel, Standard (12/29/2024 10:53 AM EST) Triglycerides 192(H) <150 mg/dL [facility] Comment:Desirable Triglyceri de: less than 150 mg/dLBorderline High Triglyceride 150-199 mg/dLHigh Triglyceride: 200-499 mg/dLVery High Triglyceride: greater than or equal to 5OO mg/dL Cholesterol 197 <200 mg/dL [facility] Comment:Desirable Cholestero l: less than 200 mg/dLBorderline High Cholesterol: 200-239 mg/dLHigh Cholesterol: greater than 239 mg/dL LDL Cholesterol Calculated 111(H) <100 mg/dL [facility] Comment:Desirable LDL: less than 100 mg/dLNear Optimal/Above Optimal LDL: 110- 129 mg/dLBorderline High LDL: 130-159 mg/dLHigh LDL: 160-189 mg/dLVery High LDL: greater than or equal to 190 mg/dL HDL Cholesterol 48 >40 mg/dL [facility] Comment:Desirable HDL: great er than 40 mg/dL Note: This HDL assay may give artificially low results in patients with liver disease. Blood Venous blood specimen / Unknown 12/29/2024 10:53 AM EST 12/29/2024 1:06 PM EST Shereen Latham MD LAB BLOOD ORDERABLES Final Result [facility] [address] [place] [phone] * (ABNORMAL) Colonoscopy (07/11/2024) Colonoscopy Abnormal( A) Normal Comment:Herberth Stokes MD tubular adenoma x 3 Herberth Stokes MD HEALTH MAINTENANCE Final Result * Hepatitis Panel, General (06/16/2024 8:22 AM EDT) Hepatitis A IgM Nonreactive Nonreactive [facility] Comment:IgM antibodies to VIRAMONTES V not detected; does not exclude earlyacute or recovered HAV infection. ~Hepatitis B Surface Antibody REACTIVE Nonreactive [facility] Comment:REACTIVE: > 11.99 mI U/mL Hepatitis B Core Antibody Nonreactive Nonreactive [facility] Hepatitis C Antibody Nonreactive Nonreactive [facility] Comment:Antibodies to HCV no t detected; does not exclude early acuteHCV infection. Hepatitis B Surface Ag Negative Negative [facility] Blood Venous blood specimen / Unknown 06/16/2024 8:22 AM EDT 06/16/2024 11:18 AM EDT us Shereen Latham MD LAB BLOOD ORDERABLES Final Result Performing Organization Address City/[facility]/ZIP Co de Phone Number [facility] [address] [place] [address] [phone] * HIV-1/2 Antigen and Antibodies, Fourth Generation, with Reflexes (02/24/2024 8:47 AM EDT) Pathologist [facility] HIV AB/AG Nonreactive Nonreactive [facility] Comment:HIV-1 p24 Ag and/or HIV-1/HIV-2 Ab not detected.A test result that is nonreactive does not exclude thepossibility of exposure to or infection with HIV-1 and/orHIV-2. Nonreactive results in this assay for individualswith prior exposure to HIV-1 and/or HIV-2 may be due toantigen and antibody levels that are below the limit ofdetection of this assay.The Clarabridge HIV Ag/Ab Combo assay result andsupplemental assay results should be interpreted inconjunction with the patient's clinical presentation,history and other laboratory results. If the results areinconsistent with clinical evidence, additional testing issuggested to confirm the result. Blood Venous blood specimen / Unknown 02/24/2024 8:47 AM EDT 02/24/2024 11:22 AM EDT us Naomi ORDAZ LAB BLOOD ORDERABLES Final Resul t Performing Organization Address City/[facility]/ZIP Co de Phone Number [facility] [address] [place] [address] [phone] * (ABNORMAL) Cologuard?? colon cancer screening (08/27/2023 11:24 AM EDT) Pathologist [facility] Cologuard Result Positive( A) Negative 09/05/2023 10:16 PM EDT [employer] (CLIA #:[id number]) Comment: POSITIVE TEST RESULT. A positive Cologuard [...] (Felix Mccoy al, N Engl J Med 2014;370(14):7219-2921.) Cologuard may produce a false negative or false positive result (no colorectal cancer or precancerous polyp present at colonoscopy follow up). A negative Cologuard test result does not guarantee the absence of CRC or advanced adenoma (pre-cancer). The current Cologuard screening interval is every 3 years. ([place] Cancer Society and U.S. Multi-Society Task Force). Cologuard performance data in a 10,000 patient pivotal study using colonoscopy as the reference method can be accessed at the following location: www.Orange Leap/results. Additional description of the Cologuard test process, warnings and precautions can be found at www.Shoptagr.com. Stool specimen (specimen) 08/27/2023 11:24 AM EDT 08/29/2023 6:48 AM EDT Shereen Latham MD LAB MOLECULAR DIAGNOSTICS ORDERABLES Final Result [employer] (CLIA #:[id number]) [address] [place] [address], * HPV mRNA E6/E7 (08/12/2018 10:57 AM EDT) HPV mRNA E6/E7 Not Detected NOT DETECTED [facility] Comment: This test was performed using the APTIMA(R) HPV Assay ([employer] This assay detects E6/E7 viral messenger RNA (mRNA) from 14 high-risk HPV types (16,18,31,33,35,39,45,51, 52,56,58,59,66,68). For additional information please refer to: http://education.PowerInbox/faq/UBD089l3 (This link is being provided for informational/ educational purposes only.) The analytical performance characteristics of this assay have been determined by [facility] [place]. The modifications have not been cleared or approved by the FDA. This assay has been validated pursuant to the CLIA regulations and is used for clinical purposes. Test Performed by [facility] [employer] [place], [address] [place] [address] Dwaine Morelos M.D., Ph.D., Director of Laboratories , CLIA [id number] Please note: Effective 07/14/2016, HPV testing will be performed using [employer]'s APTIMA test which targets mRNA. Detecting mRNA instead of DNA, as in older methods, offers significant improvements in specificity. 08/12/2018 10:5 7 AM EDT Shereen Latham MD HISTORICAL/NON ORDERABLE L ABS Final Result Performing Organization Address City/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 Advance Directives and Living Will 07/05/2024 11:59 AM Health Care Proxy Care Teams Desk Sergeant Relationship Specialty Start Date End Date Shereen Latham MD [address] [place] [address] PCP - General Family Medicine 11/02/18 Sury Benitez [address] [facility] [address] [place] [address] Pulmonary Disease 09/27/24 Nirali Madrid OD [address] [place] [address] Optometry 10/27/24 Li [place] MD [address] [place] [address] Hematology and Oncology 10/27/24 Anselmo Gates MD [address] [place] [address] Orthopaedic Surgery 10/27/24 Margaret Holman [address] [facility] [address] [place] [address] Cardiology 10/27/24 Herberth Stokes MD [address] [facility] [address] [place] [address] Gastroenterology 10/27/24 Hilton Palacios MD [address] [place] [address], [address] [place] [address] Neurology 02/06/25 Aaron Pringle MD [address] [facility] [address] [place] [address] General Surgery 03/07/25 Ronda Rodríguez [address] [place] [address] [address] [place] [address] Obstetrics and Gynecology 08/02/25 Pily Delaney Clinical CounselorBlade Sharpener 07/22/24 Elie BRASHER [facility] 12/29/24
--- OUTSIDE RECORDS SUMMARY | 2025-09-07 18:29 | XMS_ITS | Encounter Summary ---
Author Organization [employer] Address [address] [facility] 7t [place] [address] Care Team Providers Care [employer] Name Role Phone [place], Shereen NOLASCO Primary Care Provider [phone] Nupur Bullock PharmD Unavailable [phone] Sury Benitez Unavailable [phone] JuliusNirali castellanos OD Unavailable Li [place] MD Unavailable [phone] Anselmo Gates MD Unavailable Margaret Holman Unavailable Herberth Stokes MD Unavailable [phone] Hilton Palacios MD Unavailable Aaron Pringle MD Unavailable [phone] Lori James Unavailable Neelima Raygoza Unavailable Ronda Rodríguez Unavailable Neelima Raygoza Unavailable Neelima Raygoza Unavailable Encounter Details Date Type Department Care Team (Latest Contact Info) Description 07/06/2019 Abstract [facility] CONVERSIONS Dental, Provider, DDS Social [...] Office Visit [facility] MEDICINE [address] [place] [phone] Shereen Latham MD [address] [place] [address] 10/02/2025 2:00 PM EST Office Visit [facility] ADULT DENTAL [address] [place] [address] Isa De La Rosa, DDS [address] [place] [address] documented as of this encounter Visit Diagnoses Not on filedocumented in this encounter Care Teams [employer] Relationship Specialty Start Date End Date Shereen Latham MD [address] [place] [address] PCP - General Family Medicine 11/02/18 Nupur Bullock PharmD [address] [place] [address] Pharmacist Internal Medicine 08/09/24 05/15/25 Sury Benitez [address] [place] [address] Pulmonary Disease 09/27/24 Nirali Madrid OD [address] [place] [address] Optometry 10/27/24 Li [place] MD [address] [place] [address] Hematology and Oncology 10/27/24 Anselmo Gates MD [address] [place] [address] Orthopaedic Surgery 10/27/24 Margaret Holman 11 [facility] [address] [place] [address] Cardiology 10/27/24 Herberth Stokes MD 11 [facility] [address] [place] [address] Gastroenterology 10/27/24 Hilton Palacios MD [address] [facility] [address] [place] [address] Neurology 02/06/25 Aaron Pringle MD 11 [facility] [address] [place] [address] General Surgery 03/07/25 Lori James Registered Nurse 06/15/25 06/15/25 Neelima Raygoza 06/15/25 06/16/25 Ronda Rodríguez [address] [place] [address] [address] [place] [address] Obstetrics and Gynecology 08/02/25 Neelima Raygoza 08/14/25 08/23/25 Neelima Raygoza 08/28/25 08/29/25 Pily Delaney Top CarrierRn Telephonic 07/22/24 Elie Vicky [facility] 12/29/24 documented as of this encounter
--- OUTSIDE RECORDS SUMMARY | 2025-09-07 18:29 | XMS_ITS | Encounter Summary ---
Author Organization [employer] Address 75 [facility] 7 [place] [address] Care Team Providers Care Capacitor Tester Name Role Phone [place], Shereen NOLASCO Primary Care Provider [phone] Nupur Bullock PharmD Unavailable [phone] Sury Benitez Unavailable [phone] JuliusNirali castellanos OD Unavailable Li Grande MD Unavailable [phone] Anselmo Gates MD Unavailable Margaret Holman Unavailable Herberth Stokes MD Unavailable [phone] Hilton Palacios MD Unavailable Aaron Pringle MD Unavailable [phone] Lori James Unavailable Neelima Raygoza Unavailable Ronda Rodríguez Unavailable [phone] Neelima Raygoza Unavailable Neelima Raygoza Unavailable Reason for Visit * Reason Onset Date Comments ER Follow-up 12/07/2024 Encounter Details Date Type Department Care Team (Late st Contact Info) Description 12/07/2024 Telephone [facility] MEDICINE [address] [place] [address] Shereen Latham MD [address] [place] [address] ER Follow-up Social History Tobacco Use Types [...] TC placed to pt to f/u on [facility] ED visit on 12/06/2024 [...] ED visit on : Date: 12/06/24 Hospital: [facility] Seen for: Flu Patient advised will forward to team nurse for follow up documented in this encounter Plan of Treatment Upcoming Encounters Date Type Department Care Team (Late st Contact Info) Description 09/13/2025 3:15 PM EST Office Visit [facility] MEDICINE [address] [place] [address] Shereen Latham MD [address] [place] [address] 10/02/2025 2:00 PM EST Office Visit [facility] ADULT DENTAL [address] [place] [address] Isa De La Rosa DDS [address] [place] [address] documented as of this encounter Visit Diagnoses Not on filedocumented in this encounter Additional Health Concerns Assessment Noted Time PHQ-9 Depression Total Score: 13 024 4:53 PM EDT documented as of this encounter Care Teams Capacitor Tester Relationship Specialty Start Date End Date Shereen Latham MD [address] [place] [address] PCP - General Family Medicine 11/02/18 Nupur Bullock, CharleneD [address] [place] [address] Pharmacist Internal Medicine 08/09/24 05/15/25 Sury Benitez [address] [place] [address] [address] [place] [address] Pulmonary Disease 09/27/24 Nirali Madrid OD [address] [place] [address] Optometry 10/27/24 Li Grande MD [address] [place] [address] Hematology and Oncology 10/27/24 Anselmo Gates MD 10 [facility] [address] [place] [address] Orthopaedic Surgery 10/27/24 Margaret Holman 11 [facility] 3rd [place] [address] Cardiology 10/27/24 Herberth Stokes MD 11 [facility] 3rd [place] [address] Gastroenterology 10/27/24 Hilton Palacios MD [address] [place] [address], [address] [place] [address] Neurology 02/06/25 Aaron Pringle MD [address] [place] [address] 3rd [place] [address] General Surgery 03/07/25 Lori James Registered Nurse 06/15/25 06/15/25 Neelima Raygoza 06/15/25 06/16/25 Ronda Rodríguez [address] [place] [address] [address] [place] [address] Obstetrics and Gynecology 08/02/25 Neelima Raygoza 08/14/25 08/23/25 Neelima Raygoza 08/28/25 08/29/25 Pily Delaney Fiber Machine TenderConsumer Experience Consultant 07/22/24 Elie BRASHER [facility] Psychology 12/29/24 documented as of this encounter
--- OUTSIDE RECORDS SUMMARY | 2025-09-07 18:30 | XMS_ITS | Encounter Summary ---
Author Organization [employer] Address [address] [place] [address] 7 [place] [address] Care Team Providers Care Doughnut Batter Mixer Name Role Phone [place], Shereen NOLASCO Primary Care Provider [phone] Sury Benitez Unavailable [phone] Nirali Madrid OD Unavailable Li Grande MD Unavailable [phone] Anselmo Gates MD Unavailable Margaret Holman Unavailable Herberth Stokes MD Unavailable [phone] Hilton Palacios MD Unavailable Aaron Pringle MD Unavailable [phone] Neelima Raygoza Unavailable Ronda Rodríguez Unavailable [phone] Neelima Raygoza Unavailable Neelima Raygoza Unavailable Reason for Visit * Reason Onset Date Comments active requested appt 06/16/2025 Encounter Details Date Type Department Care Team ([facility] st Contact Info) Description 06/16/2025 Telephone C ADULT DENTAL [address] [place] [address] Isa De La Rosa DDS [address] [place] [address] active requested appt Social History Tobacco Use [...] Description 09/13/2025 3:15 PM EST Office Visit [facility] MEDICINE [address] [place] [address] Shereen Latham MD 230 [place] [address] 10/02/2025 2:00 PM EST Office Visit [facility] ADULT DENTAL [address] [place] [address] Paz-ConnorAdelaide abarcamia, DDS [address] [place] [address] documented as of this encounter Visit Diagnoses Not on filedocumented in this encounter Additional Health Concerns Assessment Noted Time PHQ-9 Depression Total Score: 21 025 11:03 AM EDT documented as of this encounter Care Teams Doughnut Batter Mixer Relationship Specialty Start Date End Date Shereen Latham MD 230 [place] [address] PCP - General Family Medicine 11/02/18 Sury Benitez [address] [place] [address] Dr Yates [address] [place] [address] Pulmonary Disease 09/27/24 Nirali Madrid OD [address] [place] [address] Optometry 10/27/24 Li Grande MD [address] [place] [address] Hematology and Oncology 10/27/24 Anselmo Gates MD [address] [facility] [address] [place] [address] Orthopaedic Surgery 10/27/24 Margaret Holman [address] [facility] [address] 3rd [place] [address] Cardiology 10/27/24 Herberth Stokes MD [address] [facility] [address] [place] [address] Gastroenterology 10/27/24 Hilton Palacios MD 15 [facility], [address] [place] [address] Neurology 02/06/25 Aaron Pringle MD [address] [facility] 3rd [place] [address] General Surgery 03/07/25 Neelima Raygoza 06/15/25 06/16/25 Ronda Rodríguez [address] [place] [address] 215 [place] [address] Obstetrics and Gynecology 08/02/25 Neelima Raygoza 08/14/25 08/23/25 Neelima Raygoza 08/28/25 08/29/25 Pily Delaney Air Route Traffic ControllerManager Statistical 07/22/24 Elie Vicky [facility] Psychology 12/29/24 documented as of this encounter
--- OUTSIDE RECORDS SUMMARY | 2025-09-07 18:30 | XMS_ITS | Encounter Summary ---
Author Organization [employer] Address [address] [place] [address] 7 [place] [address] Care Team Providers Care Bead Forming Machine Operator Name Role Phone [place], Shereen NOLASCO Primary Care Provider [phone] Sury Benitez Unavailable [phone] Nirali Madrid OD Unavailable Li Grande MD Unavailable [phone] Anselmo Gates MD Unavailable Margaret Holman Unavailable Herberth Stokes MD Unavailable [phone] Hilton Palacios MD Unavailable [phone] Aaron Pringle MD Unavailable Ronda Rodríguez Unavailable Neelima Raygoza Unavailable Neelima Raygoza Unavailable Reason for Visit * Reason Onset Date Comments rs no show appt 08/15/2025 Encounter Details Date Type Department Care Team (Late st Contact Info) Description 08/15/2025 Telephone [facility] ADULT DENTAL [address] [place] [address] Isa De La Rosa DDS [address] [place] [address] rs no show appt Social History Tobacco [...] the past 12 months, has t he [employer], gas, oil or water [employer] threatened to shut off services in your [...] Miscellaneous Notes * Telephone Encounter - Bebe Moises - 08/15/2025 8:49 AM EDT Patient called [...] PM EST Office Visit [facility] MEDICINE [address] [place] [address] Shereen Latham MD [address] [place] [address] 10/02/2025 2:00 PM EST Office Visit [facility] ADULT DENTAL [address] [place] [address] Isa De La Rosa, DDS [address] [place] [address] documented as of this encounter Visit Diagnoses Not on filedocumented in this encounter Additional Health Concerns Assessment Noted Time PHQ-9 Depression Total Score: 21 025 11:03 AM EDT documented as of this encounter Care Teams Bead Forming Machine Operator Relationship Specialty Start Date End Date Shereen Latham MD [address] [place] [address] PCP - General Family Medicine 11/02/18 Sury Benitez [address] [place] [address] [place] [address] Pulmonary Disease 09/27/24 Nirali Mdarid OD [address] [place] [address] Optometry 10/27/24 Li Grande MD 575 [place] [address] Hematology and Oncology 10/27/24 Anselmo Gates MD [address] [place] [address] Orthopaedic Surgery 10/27/24 Margaret Holman 11 [facility] 3rd [place] [address] Cardiology 10/27/24 Herberth Stokes MD 11 [facility] 3rd [place] [address] Gastroenterology 10/27/24 Hilton Palacios MD [address] [facility], [address] [place] [address] Neurology 02/06/25 Aaron Pringle MD 11 [facility] 3rd [place] [address] General Surgery 03/07/25 Ronda Rodríguez [address] [place] [address] 215 [place] [address] Obstetrics and Gynecology 08/02/25 Neelima Raygoza 08/14/25 08/23/25 Neelima Raygoza 08/28/25 08/29/25 Pily Delaney Humid System OperatorWood Products Manufacturer 07/22/24 Elie Vicky [facility] Psychology 12/29/24 documented as of this encounter
--- OUTSIDE RECORDS SUMMARY | 2025-09-07 18:30 | XMS_ITS | Encounter Summary ---
Author Organization [employer] Address 75 [facility] 7t [place] [address] Care Team Providers Care Acid Concentrator Name Role Phone [place], Shereen NOLASCO Primary Care Provider [phone] Nupur Bullock PharmD Unavailable [phone] Sury Benitez Unavailable [phone] Julius, Nirali OD Unavailable Li Grande MD Unavailable [phone] Anselmo Gates MD Unavailable Margaret Holman Unavailable Herberth Stokes MD Unavailable [phone] Hilton Palacios MD Unavailable Aaron Pringle MD Unavailable [phone] Lori James Unavailable Neelima Raygoza Unavailable Ronda Rodríguez Unavailable Neelima Raygoza Unavailable Neelima Raygoza Unavailable Reason for Referral * Consultation (Routine) - Closed Specialty Diagnoses / Procedures Referred By Contac t Referred To Contact Obstetrics and Gynecology Diagnoses Women's annual routine gynecological examination Stacey Khan MD 230 [place] [address] Phone: tel: fax: [facility] [address] 5th Floor [address] (Main Hospital Entrance) AGUILA Sierra Phone: tel: fax: Referral ID Status Reason Start Date Expiration Date V isits Requested Visits Authorized [id number] Closed Specialty Services Required 01/19/2025 01/19/2026 9 9 Encounter Details Date Type Department Care Team (Late st Contact Info) Description 01/19/2025 Orders Only [facility] MED[facility] [place] [address] Stacey Khan MD [address] [place] [address] Women's annual routine gynecological examination (Primary Dx) [...] 09/13/2025 3:15 PM EST Office Visit [facility] MEDICINE [address] [place] [address] Shereen Latham MD [address] [place] [address] 10/02/2025 2:00 PM EST Office Visit [facility] ADULT DENTAL [address] [place] [address] Isa De La Rosa, DDS 230 [place] [address] Scheduled Referrals Name Type Priority Associated Diagnoses [...] Sensitivity Troponin I (01/19/2025 4:33 PM EDT) [facility] TROPONIN I HIGH SENSITIVITY 7.8 <3.5 - 17.0 ng/L [facility] Comment:The Henriquez high sens itivity Troponin-I results should beused in conjunction with other diagnostic information suchas ECG, clinical observations and information, and patientsymptoms to aid in the diagnosis of AR. 01/19/2025 4:33 PM EDT 01/19/2025 4:34 PM EDT Generic External Data Provider LAB BLOOD ORDERAB LES Final Result Performing Organization Address [facility] Co de Phone Number [facility] [address] [place] [phone] * B Type Natriuretic Peptide (BNP) (01/19/2025 4:33 PM EDT) [facility] B Type Natriuretic Peptide 22 <100 pg/mL [facility] 01/19/2025 4:33 PM EDT 01/19/2025 4:34 PM EDT Generic External Data Provider LAB BLOOD ORDERAB LES Final Result Performing Organization Address [facility] Co de Phone Number [facility] [address] [place] [phone] * D Dimer High Sensitivity (01/19/2025 4:33 PM EDT) [facility] D Dimer High Sensitivity <150 NG/ML [facility] Comment:D-DIMER HS REFERENCE RANGENote: [...] Provider LAB BLOOD ORDERAB LES Final Result [facility] [address] [place] [phone] documented in this encounter Visit Diagnoses Diagnosis Women's annual routine gynecological examination- Primary documented in this encounter Additional Health Concerns Assessment Noted Time PHQ-9 Depression Total Score: 22 025 10:17 AM EST documented as of this encounter Care Teams Acid Concentrator Relationship Specialty Start Date End Date Shereen Latham MD [address] [place] [address] PCP - General Family Medicine 11/02/18 Nupur Bullock PharmD [address] [place] [address] Pharmacist Internal Medicine 08/09/24 05/15/25 Sury Benitez [address] [place] [address] Dr [facility] [address] [place] [address] Pulmonary Disease 09/27/24 Nirali Madrid OD [address] [place] [address] Optometry 10/27/24 Li Grande MD 575 [place] [address] Hematology and Oncology 10/27/24 Anselmo Gates MD [address] [facility] [address] [place] [address] Orthopaedic Surgery 10/27/24 Margaret Holman [address] 3rd [place] [address] Cardiology 10/27/24 Hreberth Stokes MD [address] [facility] [address]rd [place] [address] Gastroenterology 10/27/24 Hilton Palacios MD [address] [place] [address], [address] [place] [address] Neurology 02/06/25 Aaron Pringle MD [address] [place] [address] General Surgery 03/07/25 Lori James Registered Nurse 06/15/25 06/15/25 Neelima Raygoza 06/15/25 06/16/25 Ronda Rodríguez [address] [place] [address] [address] [place] [address] Obstetrics and Gynecology 08/02/25 Neelima Raygoza 08/14/25 08/23/25 Neelima Raygoza 08/28/25 08/29/25 Pily Delaney Hanger OffQuality Engineer 07/22/24 Elie Vicky [facility] Psychology 12/29/24 documented as of this encounter
--- OUTSIDE RECORDS SUMMARY | 2025-09-07 18:30 | XMS_ITS | Encounter Summary ---
Author Organization [employer] Address 75 [facility] 7t [place] [address] Care Team Providers Care Marketing Content Coordinator Name Role Phone [place], Shereen NOLASCO Primary Care Provider [phone] Nupur Bullock PharmD Unavailable Sury Benitez Unavailable [phone] Julius, Nirali OD Unavailable Li Grande MD Unavailable [phone] Anselmo Gates MD Unavailable Margaret Holman Unavailable Herberth Stokes MD Unavailable [phone] Hilton Palacios MD Unavailable Aaron Pringle MD Unavailable [phone] Lori James Unavailable Neelima Raygoza Unavailable Ronda Rodríguez Unavailable Neelima Raygoza Unavailable Star Raygozada Unavailable Reason for Visit * Reason Comments Med Refill Encounter Details Date Type Department Care Team ([facility] st Contact Info) Description 01/17/2025 Refill [facility] [address] [place] [address] Shereen Latham MD [address] [place] [address] Pain Social History Tobacco Use Types Packs/Day [...] Description 09/13/2025 3:15 PM EST Office Visit [facility] MEDICINE [address] [place] [address] Shereen Latham MD [address] [place] [address] 10/02/2025 2:00 PM EST Office Visit [facility] ADULT DENTAL [address] [place] [address] Isa De La Rosa DDS [address] [place] [address] documented as of this encounter Visit Diagnoses Diagnosis Pain Generalized pain documented in this encounter Additional Health Concerns Assessment Noted Time PHQ-9 Depression Total Score: 22 025 10:17 AM EST documented as of this encounter Care Teams Marketing Content Coordinator Relationship Specialty Start Date End Date Shereen Latham MD [address] [place] [address] PCP - General Family Medicine 11/02/18 Nupur Bullock PharmD 230 [place] [address] Pharmacist Internal Medicine 08/09/24 05/15/25 Sury Benitez [address] [place] [address] [place] [address] [place] [address] Pulmonary Disease 09/27/24 Nirali Madrid OD [address] [place] [address] Optometry 10/27/24 Li Grande MD [address] [place] [address] Hematology and Oncology 10/27/24 Anselmo Gates MD [address] [facility] [address] [place] [address] Orthopaedic Surgery 10/27/24 Margaret Holman 11 [facility] 3rd [place] [address] Cardiology 10/27/24 Herebrth Stokes MD 11 [facility] 3rd [place] [address] Gastroenterology 10/27/24 Hilton Palacios MD 15 [facility], [address] [place] [address] Neurology 02/06/25 Aaron Pringle MD [address] [place] [address] 3[address] [place] [address] General Surgery 03/07/25 Lori James Registered Nurse 06/15/25 06/15/25 Neelima Raygoza 06/15/25 06/16/25 Ronda Rodríguez [address] [place] [address] 215 [place] [address] Obstetrics and Gynecology 08/02/25 Neelima Raygoza 08/14/25 08/23/25 Neelima Raygoza 08/28/25 08/29/25 Pily Delaney Hair DresserSales Project Coordinator 07/22/24 Elie Vicky [facility] Psychology 12/29/24 documented as of this encounter
--- OUTSIDE RECORDS SUMMARY | 2025-09-07 18:30 | XMS_ITS | Clinical Summary ---
Author Organization [facility] Address [address] [facility] [address] [place] [address] Phone Care Team Providers Care Operations Project Manager Name Role Phone Unavailable Primary Care Provider [...] It is not the complete legal health record.[facility]
== END 2025-09-07 15:42 | disposition home or self-care (01) ==
LOC: HO.HHCL 15:41
PROVIDERS: Internal Medicine Medical Oncology; PCP Family Medicine; Visit Provider Nurse Practitioner Family
DX: C50.919 Malignant neoplasm of unspecified site of unspecified female breast (principal); R00.0 Tachycardia, unspecified; E83.42 Hypomagnesemia; I50.30 Unspecified diastolic (congestive) heart failure
CPT/HCPCS: 36415; 80053; 83735; 83880; 84443; 85025

== ENCOUNTER 2025-09-15 13:54 | Outpatient (AMB) | payer MEDICAID, SELFPAY ==
--- OUTSIDE RECORDS SUMMARY | 2025-09-13 11:55 | XMS_ITS | Encounter Summary ---
Author Organization [employer] Address [address] [place] [address] Care Team Providers Care Production Wood Craftsman Name Role Phone Shereen Latham MD Primary Care Provider [phone]- [phone] Reason for Visit * Reason Comments Simulation Encounter Details Date Type Department Care Team (Latest Contact Info) Description 09/13/2025 11:55 AM EST Hospital Encounter [facility] Radiation Oncology [address] [place] [address] Malignant neoplasm of upper-outer quadrant of left breast in female, estrogen receptor positive (CMS/HCC V24, CMS/HCC V28) (Primary Dx) Social History Tobacco Use Types [...] of Assessment Author No 08/13/2025 3:53 PM Vanessa Sotelo RN documented as of this encounter Mental Status * Because of a physical, mental, or emotional condition, do you have serious difficulty concentrating, remembering, or making decisions? (5 years old or older) Answer Entry Date Author No 08/13/2025 3:53 PM Shilpi Sotelo RN documented in this encounter Progress Notes * Chandrika Coughlin RN - 09/13/2025 12:00 PM EST Images from the original note were not included. Patient Education: Radiation Therapy for Breast for Deep Inspiration Contact Information: desk manager - and select option #2. Treatment machines - or The Radiation Oncology Department is open Thursday - Thursday, 7:30am - 4:00pm. If you need to speak with a physician after normal office hours, call [phone] and select option #2. Simulation: During the simulation, the radiation therapist will take a CT scan of the area to be treated. Permanent tattoos may be placed on the skin to help with positioning for treatment. This process will take about one hour. The radiation oncologist and physicist will utilize the CT scan in the planning ofyour treatment. Potential Side Effects: Side effects are different for everyone. Not everyone will experience these side effects. Fatigue and loss of energy Skin dryness, flaking, darkening (tanning), redness or peeling within treatment area Temporary hair loss under the affected arm Soreness or slight swelling of the treatment site Skin Care Instructions: Use warm water for showering or bathing and pat skin dry. You may gently wash the treated area with mild non fragrant non deodorant soap such as Dove or Neutrogena. Lotions safe to use on the treated area are unscented Aquaphor, Eucerin, Lubriderm, CeraVe, Cetaphil, and clear Aloe Vera. You may apply ointments/creams treatment area, after your treatment and before you go to bed. Only use other lotions and ointments after checking with your doctor or nurse. Avoid wearing tight fitting bras, under wire bras, or clothing especially over treatment areas as this can cause or worsen irritation. Apply sunscreen with SPF 30 or greater to the treated area during periods of prolonged sun exposure. Special Instructions: Avoid shaving with manual yovanny on the areas being treated or you can use electric razor to shave. Please avoid using chemical hair removers such as Ayala. If the skin peels and becomes moist, notify your Radiation doctor or nurse. Special creams or lotions may be prescribed as needed. Please refrain from chewing gum while at your appointments. We need to have you hold as still as possible during your treatments. If you have any questions concerning your treatment, please ask your Radiation doctor or nurse. Instructions for Deep Inspiration Breath Hold (DIBH) Free Breathing Deep Inspiration Breath Hold The reason why we have you do this is it helps move the heart out of the way of the radiation beam.This can help minimize the radiation to your heart. This might not be for everyone because some time you can't hold your breath for 20 seconds. Also, you might not need to do this for your treatment and your doctor will keep in mind to make sure that your heart is protected from the radiation. Instructions on doing deep inspiration breath hold: The goal is for you to hold your breath for up to 20 seconds during your planning session and treatments. You will be asked to do this a few times during each session. You should try to practice thiseach day. Try to do this exercise of holding your breath a few times a day. Make sure that you take a break after each time you hold your breath for 20 seconds. As you do this it should become easier for you to do each day during your treatments. Finally, if this is something that you can't do it is alright your doctor will make sure that they protect your heart. * Chandrika Coughlin RN - 09/13/2025 12:00 PM EST Met with pt I first did screening she did not need urine test due to she had her ureters surgically removed about 10 years ago. I did inform Dr. Ureña and Louisa Romero RTT of this. Teaching done for CT sim of left breast. I reviewed education packet and gave to pt. Pt informed me thatadonis does have COPD and is concerned about holding her breath for 20 seconds. I informed that I willlet the therapist know so they can work with her. I reviewed Distress Screening Tool with pt and informed that I will give this to Sushma JIMENEZ to review. I had pt sit in waiting room due to CT Sim appointment is at 1 pm. Will monitor during treatments. documented in this encounter Plan of Treatment Upcoming Encounters Date Type Department Care Team (Late st Contact Info) Description 09/20/2025 2:30 PM EST Appointment [facility] Radiation Oncology [address] [place] [phone] 09/20/2025 2:45 PM EST Appointment [facility] Radiation Oncology [address] [place] [phone] Pal Ureña MD [address] [place] [address] 09/21/2025 2:30 PM EST Appointment [facility] Radiation Oncology [address] [place] [phone] 09/22/2025 2:30 PM EST Appointment [facility] Radiation Oncology [address] [place] [phone] 09/24/2025 10:45 AM EST Appointment [facility] Radiation Oncology [address] [place] [phone] 09/25/2025 2:30 PM EST Appointment [facility] Radiation Oncology [address] [place] [phone] 09/26/2025 2:30 PM EST Appointment [facility] Radiation Oncology [address] [place] [phone] 09/27/2025 2:30 PM EST Appointment [facility] Radiation Oncology [address] [place] [phone] 10/02/2025 2:30 PM EST Appointment [facility] Radiation Oncology [address] [place] [phone] 10/03/2025 1:00 PM EST Appointment [facility] Radiation Oncology [address] [place] [phone] Pal Ureña MD [address] [place] [address] 10/03/2025 2:30 PM EST Appointment [facility] Radiation Oncology [address] [place] [phone] 10/04/2025 2:30 PM EST Appointment [facility] Radiation Oncology [address] [place] [phone] 10/05/2025 2:30 PM EST Appointment [facility] Radiation Oncology [address] [place] [phone] 10/06/2025 2:30 PM EST Appointment [facility] Radiation Oncology [address] [place] [phone] 10/09/2025 2:30 PM EST Appointment [facility] Radiation Oncology [address] [place] [phone] 10/10/2025 2:30 PM EST Appointment [facility] Radiation Oncology [address] [place] [phone] 10/11/2025 2:30 PM EST Appointment [facility] Radiation Oncology [address] [place] [phone] 10/12/2025 2:30 PM EST Appointment [facility] Radiation Oncology [address] [place] [phone] 10/13/2025 2:30 PM EST Appointment [facility] Radiation Oncology [address] [place] [phone] 10/16/2025 2:30 PM EST Appointment [facility] Radiation Oncology [address] [place] [address] 10/17/2025 2:30 PM EST Appointment [facility] Radiation Oncology [address] [place] [address] 10/18/2025 2:30 PM EST Appointment [facility] Radiation Oncology [address] [place] [address] 11/16/2025 2:00 PM EST Procedure visit Orthopedic Surgery - [place] [address] [phone] Antony Garrett, DPWilmar [address] [address] documented as of this encounter Visit Diagnoses Diagnosis Malignant neoplasm of upper-outer quadrant of left breast in female, estrogen receptor positive (CMS/HCC V24, CMS/HCC V28)- Primary documented in this encounter Care Teams Production Wood Craftsman Relationship Specialty Start Date End Date Shereen Latham MD [address] [phone] PCP - General 01/13/1996 documented as of this encounter
--- OUTSIDE RECORDS SUMMARY | 2025-09-13 13:00 | XMS_ITS | Encounter Summary ---
[facility] Address [address] [place] [address] Care Team Providers Care Scrap Sawyer Name Role Phone Shereen Latham MD Primary Care Provider +1- [phone] Reason for Visit * Radiation Therapy (Routine) - Authorized Specialty Diagnoses / Procedures Referred By Contac t Referred To Contact Radiation Oncology Diagnoses Malignant neoplasm of upper-outer quadrant of left breast in female, estrogen receptor positive (CMS/HCC V24, CMS/HCC V28) Procedures Rad Onc Treatment Planning Simulation Pal Ureña MD [address] [place] [address] Phone: tel: fax: Radiation Oncology [address] [place] [phone] Phone: tel: fax: Referral ID Status Reason Start Date Expiration Date V isits Requested Visits Authorized [id number] Authorized 08/31/2025 08/31/2026 1 1 Encounter Details Date Type Department Care Team (Latest Contact Info) Description 09/13/2025 1:00 PM EST Hospital Encounter Radiation Oncology [address] [place] [phone] Pal Ureña MD [address] [place] [address] Malignant neoplasm of upper-outer quadrant of left [...] documented in this encounter Progress Notes * Pal Ureña MD - 09/13/2025 1:00 PM EST Radiation Oncology Clinical Treatment Planning Note Date of Service: 09/13/25 Cancer Staging No matching staging information was found for the patient. [[id number]] Azra Segun has agreed to a course of radiation therapy for curative purposes. I have ordered a treatment planning simulation to aid in the delineation of target and normal surrounding structures. Simulation will be performed to accomplish reproducible treatment position, to determine optimal t reatment portals/beam arrangements, to design beam modifying devices, and/or immobilization devices. Treatment will be delivered post-operatively. The modality used for this treatment will be external beam radiation therapy. Treatment to the primary site is planned. A total dose of 5272 cGy in 20 fractions is planned. Treatment will be delivered daily. Planned treatment technique is three-dimensional conformal radiation therapy. Patient has not received radiation treatment in the past. CT simulation is planned. Simulation will be performed utilizing board. The planned board type to be used is breast board supine. Organs and normal structures at risk include Heart, lungs Need to reduce dose to lungs and heart * Linda Saldaña - 09/13/2025 1:00 PM ESTEncounter addended by: Linda Saldaña on: 09/14/2025 6:57 AM Actions taken: Charge Capture section accepted documented in this encounter Plan of Treatment Upcoming Encounters Date Type Department Care Team (Late st Contact Info) Description 09/20/2025 2:30 PM EST Appointment Radiation Oncology [address] [place] [phone] 09/20/2025 2:45 PM EST Appointment Radiation Oncology [address] [place] [phone] Pal Ureña MD [address] [place] [address] 09/21/2025 2:30 PM EST Appointment Radiation Oncology [address] [place] [phone] 09/22/2025 2:30 PM EST Appointment Radiation Oncology [address] [place] [phone] 09/24/2025 10:45 AM EST Appointment Radiation Oncology [address] [place] [phone] 09/25/2025 2:30 PM EST Appointment Radiation Oncology [address] [place] [phone] 09/26/2025 2:30 PM EST Appointment Radiation Oncology [address] [place] [phone] 09/27/2025 2:30 PM EST Appointment Radiation Oncology [address] [place] [phone] 10/02/2025 2:30 PM EST Appointment Radiation Oncology [address] [place] [phone] 10/03/2025 1:00 PM EST Appointment Radiation Oncology [address] [place] [phone] Pal Ureña MD [address] [place] [address] 10/03/2025 2:30 PM EST Appointment Radiation Oncology [address] [place] [phone] 10/04/2025 2:30 PM EST Appointment Radiation Oncology [address] [place] [phone] 10/05/2025 2:30 PM EST Appointment Radiation Oncology [address] [place] [phone] 10/06/2025 2:30 PM EST Appointment Radiation Oncology [address] [place] [phone] 10/09/2025 2:30 PM EST Appointment Radiation Oncology [address] [place] [phone] 10/10/2025 2:30 PM EST Appointment Radiation Oncology [address] [place] [phone] 10/11/2025 2:30 PM EST Appointment Radiation Oncology [address] [place] [phone] 10/12/2025 2:30 PM EST Appointment Radiation Oncology [address] [place] [address] 10/13/2025 2:30 PM EST Appointment Radiation Oncology [address] [place] [address] 10/16/2025 2:30 PM EST Appointment Radiation Oncology [address] [place] [address] 10/17/2025 2:30 PM EST Appointment Radiation Oncology [address] [place] [address] 10/18/2025 2:30 PM EST Appointment Radiation Oncology [address] [place] [address] 11/16/2025 2:00 PM EST Procedure visit Orthopedic Surgery - [place] [address] [phone] Antony Garrett, SHARA [address] [address] Scheduled Orders Name Type Priority Associated Diagnoses Orde r Schedule Rad Onc Treatment Planning Simulation Radiation Oncology Routine Malignant neoplasm of upper-outer quadrant of left breast in female, estrogen receptor positive (CMS/HCC V24, CMS/HCC V28) Ordered: 08/31/2025 documented as of this encounter Visit Diagnoses Diagnosis Malignant neoplasm of upper-outer quadrant of left breast in female, estrogen receptor positive (CMS/HCC V24, CMS/HCC V28)- Primary documented in this encounter Care Teams Scrap Sawyer Relationship Specialty Start Date End Date Shereen Latham MD [address] [place] [phone] PCP - General 01/13/1996 documented as of this encounter
--- OUTSIDE RECORDS SUMMARY | 2025-09-13 15:15 | XMS_ITS | Encounter Summary ---
Author Organization [employer] Address [address] [place] [address] Care Team Providers Care Pss Delivery Professional Name Role Phone Shereen Latham MD Primary Care Provider [phone] Sury Benitez Unavailable [phone] Nirali Madrid OD Unavailable [phone] Li Grande MD Unavailable [phone] Anselmo Gates MD Unavailable Margaret Holman Unavailable Herberth tSokes MD Unavailable [phone] Hilton Palacios MD Unavailable Aaron Pringle MD Unavailable [phone] Ronda Rodríguez Unavailable Reason for Visit * Reason Comments Follow-up Encounter Details Date Type Department Care Team (Latest Contact Info) Description 09/13/2025 3:15 PM EST Office Visit [facility] [address] [place] [address] Shereen Latham MD [address] [place] [address] Chronic heart failure with preserved ejection fraction (HFpEF) (HCC) (Primary Dx); Bilateral malignant neoplasm of breast in female, unspecified estrogen receptor status, unspecified site of breast (CMS/HCC) (HCC); Benign essential hypertension; Tobacco dependence syndrome; Alcohol use disorder, moderate, dependence (CMS/HCC) (HCC); Atrial tachycardia (CMS/HCC); Alcoholic cardiomyopathy (CMS/HCC) (HCC); Hypomagnesemia; Severe episode of recurrent major depressive disorder, without psychotic features (CMS/HCC) (HCC); Stage 3a chronic kidney disease (CMS/HCC) (HCC); Class 1 obesity due to excess calories with serious comorbidity and body mass index (BMI) of 31.0 to 31.9 in adult; Fibromyalgia Social History Tobacco Use Types Packs/Day Years [...] Sign Reading Time Taken Comments Blood Pressure 146/72 09/13/2025 3:27 PM EST Pulse 89 09/13/2025 3:27 PM EST Temperature 37.2 C (98.9 F) 09/13/2025 3:27 PM EST Respiratory Rate 20 09/13/2025 3:27 PM EST Oxygen Saturation 98% 09/13/2025 3:27 PM EST Inhaled Oxygen Concentration - - Weight 89.8 kg (198 lb) 09/13/2025 3:27 PM EST Height - - Body Mass Index 31.01 07/20/2025 2:10 PM EDT documented in this encounter Progress Notes * Shereen Latham MD - 09/13/2025 3:15 PM EST Kiley Oquendo is a 49 y.o. female with past medical history of alcohol use disorder last intake June 04, anemia, breast cancer, essential hypertension, GERD, history of gout with recent flares and congestive heart failure who presents to the office today for chronic medical conditions . 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 -S/p RIGHT mastectomy with sentinel node bx by Dr. Prescott [facility] -Adriamycin/Cytoxan based chemotherapy started Oct, completed [...] in place. I recommended a left breast cachorro mpectomy with localizer and after discussion of the procedure, risks, and alternatives, she consents to the surgery. -Mammogram 04/20/25 ASSESSMENT: LEFT BREAST: BI-RADS 4 suspicious. Recommend MRI guided core needle biopsy at this time. In addition there is another 5 mm foci for which management will be pending biopsy of the above mass to include six- month follow-up MRI for further evaluation of stability. RIGHT BREAST: BI-RADS 2 benign. -05/18/25 MRI-guided vacuum-assisted core biopsy: Predominantly fibrofatty breast parenchyma with a single focus of atypical ductal hyperplasia (ADH) -pathology 06/01/25 Breast, left, excision: Breast tissue with usual ductal hyperplasia and columnarcel hyperplasia; negative for atypical ductal hyperplasia or carcinoma. -06/07/25 MRI guided left breast biopsy: Breast tissue with 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 Results are benign and concordant. Recommend breast surgical consultation for excision of 2 sites of known atypical ductal hyperpla natty in the left breast from previous needle core biopsies. Recently passed appt: General Surgery appt 06/01/25 at 10:30am, Pulmo 06/05/25 3:15pm, GI 06/07/25 4:30pm, [employer] 06/08/25 2:15pm, Cardio 06/20/25 at 1pm Upcomming appointments: Onco 07/18/25 at 3pm and Rheuma 10/12/25 at 3pm. Please give pt a reminder for this appts. Additionally pt has been seen in the ER/hospital recurrently over the last year: 12/17/23 [facility] with alcohol withdrawal. 01/02/24 [facility] with alcohol withdrawal. 04/09/24 [facility] with alcohol withdrawal. 04/11/24 [facility] with alcohol withdrawal. 04/21/24 [facility] or left ankle pain. Dx with gout. Treated with prednisone. 06/24/24 hospitalized for congestive heart failure and hypertensive emergency. 07/06/24 [facility] for chest pain. 07/25/2024 - 07/27/2024 [facility] presented with right knee pain. Admitted for gout, treated with steroids and colchicine. 08/07/2024 [facility] presented for right knee gout exacerbation. Provided another course of steroids and colchicine. 09/07/24 [facility] for chest pain. 10/31/24 [facility] for chest pain. Dx with chest wall pain. 11/21/24 [facility] for R knee pain. Dx with gout and treated with prednisone. 12/06/24 [facility] for abdominal pain. Dx with muscle strain. 12/11/24 [facility] for water retention. Dx with dyspnea, did not seem fluid overloaded. 12/20/24 [facility] for right knee pain, treated for gout with prednisone Seen here at [facility] 06/14/25, 06/16/25 and also at ED for SOB worsened with exertion, cough, pain in left shoulder, nasal congestion, and facial pressure > 7d. Also w/ OM R ear on exam, prescribed doxycycline. Mometasone for nasal congestion. Troponin 12.4, EKG at baseline and CXR normal. Chronic pain and musculoskeletal symptoms - Reports being often in pain - Pain present in hands, feet, knees; hands described as hurting and difficult to use, fingers locked - Feet described as burning and in pain all the time - States pain worsened after receiving a shot in the knee from Dr. Bustamante - Pain in fingers has increased recently - Reports pain is sometimes affected by cold or rain, with some improvement when weather is better - Scheduled to start radiation next week for 4 weeks - Has been to pain management previously - Has tried a chronic pain group for fibromyalgia but experienced anxiety - Psychiatrist unable to help with pain symptoms Weakness and fatigue - Feels very weak, especially at the end of the day - Reports body feels so late and so weak - Difficulty sleeping recently Magnesium and laboratory concerns - Reports low magnesium noted in August 2025 blood work - Takes four magnesium supplements daily, plus magnesium in a multivitamin - Uncertainty about magnesium levels and kidney function - Expressed concern about adequacy of recent lab draws and confusion over multiple lab orders from different providers - Requested repeat magnesium testing and evaluation for dehydration - Reports being told by hospital staff to consider seeing a kidney and liver specialist Blood pressure - Reports blood pressure was a tiny bit high during a recent hospital visit - Had not taken blood pressure medication on the morning of the encounter Sleep study - Attempted sleep study but unable to sleep during the test; device fell off during sleep - Hospital staff later stated sleep study was not needed Alcohol use - Reports alcohol use only on holidays - Last drink was in September 2025 [facility] - Reports a lot of stress currently - Denies tobacco use (expressed desire to quit if using) - Reports thyroid was not a concern during recent hospital visit Social History Tobacco: denied Drugs: none Alcohol: No Sexuality: Contraception: bilateral tubal ligation Suicide/Depression: The patient denies any present symptoms of depression or anxiety. Not wearing seatbelt. Review of Systems Constitutional: Negative for fatigue, fever and unexpected weight change. Respiratory: Negative for cough. Cardiovascular: Negative for chest pain. Gastrointestinal: Negative for abdominal pain. Genitourinary: Negative for difficulty urinating. Musculoskeletal: Negative for back pain. Finger pain Skin: Negative for color change. Current Medications[1] Allergies[2] Medical History[3] Surgical History[4] Family History[5] Objective Visit Vitals BP (!) 146/72 (BP Location: Left arm, Patient Position: Sitting, BP Cuff Size: Adult) Pulse 89 Temp 98.9 ??F (37.2 ??C) (Oral) Resp 20 Wt 198 lb (89.8 kg) SpO2 98% BMI 31.01 kg/m?? OB Status Hysterectomy Smoking Status Every Day BSA 2.06 m?? Physical Exam Constitutional: Appearance: Normal appearance. HENT: Head: Normocephalic. Cardiovascular: Rate and Rhythm: Normal rate and regular rhythm. Heart sounds: Normal heart sounds. Pulmonary: Effort: Pulmonary effort is normal. Breath sounds: Normal breath sounds. No wheezing, rhonchi or rales. Abdominal: General: Abdomen is flat. Palpations: There is no mass. Tenderness: There is no abdominal tenderness. Skin: General: Skin is warm and dry. Neurological: General: No focal deficit present. Mental Status: She is alert. Psychiatric: Behavior: Behavior normal. 49 y.o. female annual evaluation. Assessment & Plan Chronic heart failure with preserved ejection fraction (HFpEF) ([facility]) -Echocardiogram done 10/18/2021 had shown EF 30-35%, mild LVH. follow-up after that finding. A stress test at that time was incomplete. -Dx with acute congestive heart failure with reduced EF during admission to [facility] 06/22/24. - She was started on [...] effusion and indeterminate diastolic function -Seen by [facility]iology 08/01/24 : exercise nuclear stress [...] again until 07/2024. 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 -S/p RIGHT mastectomy with sentinel node bx by Dr. Prescott [facility] -Adriamycin/Cytoxan based chemotherapy started Oct, completed [...] in place. I recommended a left breast cachorro mpectomy with localizer and after discussion of the procedure, risks, and alternatives, she consents to the surgery. -Mammogram 04/20/25 ASSESSMENT: LEFT BREAST: BI-RADS 4 suspicious. Recommend MRI guided core needle biopsy at this time. In addition there is another 5 mm foci for which management will be pending biopsy of the above mass to include six- month follow-up MRI for further evaluation of stability. RIGHT BREAST: BI-RADS 2 benign. -05/18/25 MRI-guided vacuum-assisted core biopsy: Predominantly fibrofatty breast parenchyma with a single focus of atypical ductal hyperplasia (ADH) -pathology 06/01/25 Breast, left, excision: Breast tissue with usual ductal hyperplasia and columnarcel hyperplasia; negative for atypical ductal hyperplasia or carcinoma. -06/07/25 MRI guided left breast biopsy: Breast tissue with 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 Results are benign and concordant. Recommend breast surgical consultation for excision of 2 sites of known atypical ductal hyperpla natty in the left breast from previous needle [...] Dr. 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 No interstitial disease is present.Stable scattered pulmonary nodules, largest in the right middle lobe measuring 5 mm abutting the major fissure, most likely an intrapulmonary lymph node. No change. Ancillary findings as discussed. Alcohol use disorder, moderate, dependence (CMS/HCC) (HCC) Longstanding, severe olesya drinking with hx admissions and withdrawal. Stable doing well with significant decrease in intake. Atrial tachycardia (CMS/HCC) Alcoholic cardiomyopathy (CMS/HCC) (HCC) Hypomagnesemia Low normal 09/07/25 1.6, increase magnesium 400 to from TID to QID Orders: Magnesium; Future Basic Metabolic Panel; Future magnesium oxide (Mag-Ox) 400 MG tablet; TAKE 1 TABLET BY MOUTH QID Severe episode of recurrent major depressive disorder, without psychotic features (CMS/HCC) (HCC) -has therapist in [place]. Has appt. 12/30/24. Had intake for psychiatry and has follow-up appt in 12/2024. Stage 3a chronic kidney disease (CMS/HCC) (HCC) -labs ordered for further evaluation: Albumin, random urine w/ creatinine, Creatinine, Basic metabolic Panel. Class 1 obesity due to excess calories with serious comorbidity and body mass index (BMI) of 31.0 to 31.9 in adult Dietary Recommendations: Fruits, vegetables, whole grains, protein foods, and fat-free or low-fat dairy products are healthychoices. Eat different types of protein foods in your diet. This can include seafood, lean meats, poultry, beans, peas, lentils, nuts, seeds, soy products, and eggs. Limit foods and beverages higher in added sugars, saturated fat, and sodium. Exercise Recommendations: At least 150 minutes of moderate-intensity physical activity per week, or an equivalent combinationof moderate- and vigorous-intensity activity. Fibromyalgia Pt has chronic pain syndrome. Multiple [...] group 03/02/25, recommended acupuncture clinic on 04/26/25 Follow up in about 2 months (around 11/13/2025) for cancer follow up. This note was drafted using Ambient (AI) technology. The patient/patient's guardian has been informed and has consented to the use of this technology: Yes [1] Current Outpatient Medications: Acetaminophen Extra Strength 500 MG tablet, TAKE [...] FOR ALLERGIES, Disp: 90 tablet, Rfl: 3 clonazePAM (KlonoPIN) 0.5 MG tablet, TAKE 1 TABLET BY MOUTH EVERY DAY NEEDED PANIC ATTACK, Disp:, Rfl: D3-1000 25 MCG (1000 UT) capsule, TAKE 1 CAPSULE BY MOUTH EVERY MORNING, Disp: 90 capsule, Rfl: 3 Diclofenac Sodium 1 % gel, Apply 1 Application topically if needed each day (bullock pain)., Disp: 50 g, Rfl: 0 doxycycline (Vibramycin) 100 MG capsule, TAKE 1 CAPSULE BY MOUTH TWICE A DAY FOR 7 DAYS WITH FULL GLASS OF WATER DO NOT LIE DOWN FOR 30 MINS, Disp: , Rfl: Fiber-Lax 625 MG tablet, TAKE 1 TABLET BY MOUTH EVERY DAY WITH A FULL GLASS OF WATER, Disp: , Rfl: fluticasone-salmeterol (Advair) 115-21 MCG/ACT inhaler, Inhale 2 [...] 12 HOURS AND OFF FOR 12 HOURS DIRECTED, Disp: 30 patch, Rfl: 3 LORazepam (Ativan) [...] Disp: 90 capsule, Rfl: 3 sodium chloride ([place]) 0.65 % nasal spray, Administer 1 spray into each nostril if needed for congestion., Disp: 15 mL, Rfl: 11 Spacer/Aero-Holding Chambers (AeroChamber MV) inhaler, Use as instructed, Disp: 1 each, Rfl: 2 Ventolin HFA 108 (90 Base) MCG/ACT inhaler, INHALE 2 PUFFS FOUR TIMES DAILY NEEDED FOR SHORTNESSOF BREATH, Disp: 18 g, Rfl: 0 [2] Allergies Allergen Reactions Amoxicillin Hives and Itching Other reaction(s): itchy, red skin Other Reaction(s): rash, rash/itching Sulfamethoxazole Rash Trimethoprim Hives, Itching and Rash Hydrocodone Hives and Itching Latex Hives and Itching Other reaction(s): itching [3] Past Medical History: Diagnosis Date Achilles tendon pain bilateral 10/22/2023 Acute gout of right knee 07/27/2024 [facility] (07/25/2024 - 07/27/2024) Patient presented with swelling, pain, and warmth in the right knee. Patient had a low fever (100.3 F) and elevated WBC (03798 cells/uL), CRP, and ESR. Orthopedic surgery consulted who requested admission with IV antibiotics, received vancomycin and ceftriaxone. Found to have SIRS due to right knee gout, sepsis ruled out with thoracentesis. Antibiotics were discontin Alcohol use disorder, moderate, dependence (CMS/HCC) (HCC) 12/12/2021 Longstanding, severe olesya drinking with hx admissions and withdrawal. Care complicated by difficulty accepting/comprehending risk. We have many times discussed risks including liver damage, liver failure and the risk of dying if she continues to drink. At times she has been referred to [facility] but has not followed though. -Continu Anemia Benign essential hypertension 12/13/2021 -Blood pressure is at goal -Continue lifestyle modifications -Continue current medications Depression with anxiety 04/25/2024 Fibromyalgia 11/16/2022 Pt has chronic pain syndrome. Multiple work up are normal. There is moderate evidence for efficacy for aerobic exercise, cognitive behavioral therapy, patient education, and group therapy. There is also evidence for acupuncture, hypnotherapy, biofeedback and balneotherapy. There is some weaker evidence for chiropractic therapy, massage, electrotherapy and ultrasound. There is no evidence that GERD (gastroesophageal reflux disease) History of chronic CHF 06/29/2024 -Echocardiogram done 10/18/2021 had shown EF 30-35%, mild LVH. She did not come for cardiology follow-up after that finding. A stress test at that time was incomplete. -Dx with acute congestive heartfailure with reduced EF during admission to [facility] 06/22/24. - She was started on Lasix 40 mg daily, Aldactone 25 mg daily, losartan 25 mg b.i.d. and carvedilol 6.25 mg b.i.d. 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 -S/p RIGHT mastectomy with sentinel node bx by Dr. Prescott [facility] -Adriamycin/Cytoxan based chemotherapy started Oct, completed 4 cycles in Dec -received one cycle of Taxol February 22 then lost to fo Hypertension Ingrown toenail of both feet 10/22/2023 Left foot pain 10/22/2023 Peripheral neuropathy 07/22/2023 Past procedures 01/14/24: Peripheral Nerve Stimulation Temporary Lead Placement, Ultrasound-Guided,Saphenous Nerve, Right: No relief. 07/31/23: Right adductor canal saphenous nerve block, ultrasound-guided: Diagnostic relief for the duration of the anesthetic. 11/05/22: Lumbar Medial Branch Block,Bilateral L3, L4 medial branches and L5 Dorsal Ramus (2 levels, 3 nerves)- 100% rel Right shoulder pain 10/22/2023 Tobacco dependence syndrome 03/23/2014 -Cigg/day: 1-2 -Age started: -Total years smoking: -Pack year history: Encouraged smoking cessationresources such as pharmacomtherapy, [facility] smoking cessation group, and [facility] pharmacy smoking cessationclinic Discussed USPSTF recommends annual lung cancer screening with low dose CT in people who meetthe following criteria: -ages 50 to 80 years. -have a 20 pack-year smoking history. [4] Past Surgical History: Procedure Laterality Date BI [...] GUIDED BREAST LOCALIZATION AND BIOPSY LEFT HYSTERECTOMY [5] Family History Problem Relation Name Age of Onset Heart disease Mother Heart disease Father documented in this encounter Miscellaneous Notes * Assessment & Plan Note - Shereen Latham MD - 09/13/2025 3:15 PM EST Associated Problem(s): (HFpEF) heart failure with preserved ejection fraction (HCC) -Echocardiogram done 10/18/2021 had shown EF 30-35%, mild LVH. follow-up after that finding. A stress test at that time was incomplete. -Dx with acute congestive heart failure with reduced EF during admission to [facility] 06/22/24. - She was started on [...] effusion and indeterminate diastolic function -Seen by [facility] 08/01/24 : exercise nuclear stress [...] again until 07/2024. 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 -[facility]/Cytoxan based chemotherapy started Oct, completed 4 [...] in place. I recommended a left breast cachorro mpectomy with localizer and after discussion of the procedure, risks, and alternatives, she consents to the surgery. -Mammogram 04/20/25 ASSESSMENT: LEFT BREAST: BI-RADS 4 suspicious. Recommend MRI guided core needle biopsy at this time. In addition there is another 5 mm foci for which management will be pending biopsy of the above mass to include six- month follow-up MRI for further evaluation of stability. RIGHT BREAST: BI-RADS 2 benign. -05/18/25 MRI-guided vacuum-assisted core biopsy: Predominantly fibrofatty breast parenchyma with a single focus of atypical ductal hyperplasia (ADH) -pathology 06/01/25 Breast, left, excision: Breast tissue with usual ductal hyperplasia and columnarcel hyperplasia; negative for atypical ductal hyperplasia or carcinoma. -06/07/25 MRI guided left breast biopsy: Breast tissue with 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 Results are benign and concordant. Recommend breast surgical consultation for excision of 2 sites of known atypical ductal hyperpla natty in the left breast from previous needle [...] Dr. 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 No interstitial disease is present.Stable scattered pulmonary nodules, largest in the right middle lobe measuring 5 mm abutting the major fissure, most likely an intrapulmonary lymph node. No change. Ancillary findings as discussed. * Assessment & Plan Note - Shereen Latham MD - 09/13/2025 3:15 PM EST Associated Problem(s): Alcohol use disorder, moderate, dependence (CMS/HCC) (HCC) Longstanding, severe olesya drinking with hx admissions and withdrawal. Stable doing well with significant decrease in intake. * Assessment & Plan Note - Shereen Latham MD - 09/13/2025 3:15 PM EST Associated Problem(s): Atrial tachycardia (CMS/HCC) * Assessment & Plan Note - Shereen Latham MD - 09/13/2025 3:15 PM EST Associated Problem(s): Cardiomyopathy (HCC) * Assessment & Plan Note - Shereen Latham MD - 09/13/2025 3:15 PM EST Associated Problem(s): Hypomagnesemia Low normal 09/07/25 1.6, increase magnesium 400 to from TID to QID Orders: Magnesium; Future Basic Metabolic Panel; Future magnesium oxide (Mag-Ox) 400 MG tablet; TAKE 1 TABLET BY MOUTH QID * Assessment & Plan Note - Shereen Latham MD - 09/13/2025 3:15 PM EST Associated Problem(s): Severe episode of recurrent major depressive disorder, without psychotic features (CMS/HCC) (HCC) -has therapist in [place]. Has appt. 12/30/24. Had intake for psychiatry and has follow-up appt in 12/2024. * Assessment & Plan Note - Shereen Latham MD - 09/13/2025 3:15 PM EST Associated Problem(s): Stage 3 chronic kidney disease (CMS/HCC) (HCC) -labs ordered for further evaluation: Albumin, random urine w/ creatinine, Creatinine, Basic metabolic Panel. * Assessment & Plan Note - Shereen Latham MD - 09/13/2025 3:15 PM EST Associated Problem(s): Class 1 obesity due to excess calories with serious comorbidity and body mass index (BMI) of 31.0 to 31.9 in adult Dietary Recommendations: Fruits, vegetables, whole grains, protein foods, and fat-free or low-fat dairy products are healthychoices. Eat different types of protein foods in your diet. This can include seafood, lean meats, poultry, beans, peas, lentils, nuts, seeds, soy products, and eggs. Limit foods and beverages higher in added sugars, saturated fat, and sodium. Exercise Recommendations: At least 150 minutes of moderate-intensity physical activity per week, or an equivalent combinationof moderate- and vigorous-intensity activity. * Assessment & Plan Note - Shereen Latham MD - 09/13/2025 3:15 PM EST Associated Problem(s): Fibromyalgia Pt has chronic [...] group 03/02/25, recommended acupuncture clinic on 04/26/25 documented in this encounter Plan of Treatment Upcoming Encounters Date Type Department Care Team (Late st Contact Info) Description 10/02/2025 2:00 PM EST Office Visit [facility] ADULT DENTAL [address] [place], [place] [phone] Paz-Connor, Isa, DDS [address] [place], [place] [phone] 2:00 PM EST Office Visit [facility] MEDICINE [address] [place], [place] [phone] Shereen Latham MD 230 [place], [place] [phone] Scheduled Orders Name Type Priority Associated Diagnoses Orde r Schedule Magnesium Lab Routine Hypomagnesemia Expected: 09/13/2025, Expires: 09/13/2026 Basic Metabolic Panel Lab Routine Hypomagnesemia Expected: 09/13/2025 (Approximate), Expires: 09/13/2026 documented as of this encounter Visit Diagnoses Diagnosis Chronic heart failure with preserved ejection fraction (HFpEF) (HCC)- Primary Bilateral malignant neoplasm of breast in female, unspecified estrogen receptor status, unspecified site of breast (CMS/HCC) (HCC) Benign essential hypertension Essential hypertension, benign Tobacco dependence syndrome Tobacco use disorder Alcohol use disorder, moderate, dependence (CMS/HCC) (HCC) Atrial tachycardia (CMS/HCC) Other specified cardiac dysrhythmias 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 Hypomagnesemia 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, without psychotic features (CMS/HCC) (HCC) Stage 3a chronic kidney disease (CMS/HCC) (HCC) Class 1 obesity due to excess calories with serious comorbidity and body mass index (BMI) of 31.0 to 31.9 in adult Fibromyalgia Unspecified myalgia and myositis documented in this encounter Additional Health Concerns Assessment Noted Time PHQ-9 Depression Total Score: 21 025 11:03 AM EDT documented as of this encounter Care Teams Pss Delivery Professional Relationship Specialty Start Date End Date Shereen Latham MD [address] [place] [address] PCP - General Family Medicine 11/02/18 Sury Benitez [address] [place] [address] [address] [place] [address] Pulmonary Disease 09/27/24 Nirali Madrid OD [address] [place] [address] Optometry 10/27/24 Li Grande MD [address] [place] [address] Hematology and Oncology 10/27/24 Anselmo Gates MD [address] [place] [address] Orthopaedic Surgery 10/27/24 Margaret Holman [address] [facility] [address] [place] [address] Cardiology 10/27/24 Herberth Stokes MD [address] [facility] [address] [place] [address] Gastroenterology 10/27/24 Hilton Palacios MD [address] [place] [address], [address] [place] [address] Neurology 02/06/25 Aaron Pringle MD [address] [facility] [address] [place] [address] General Surgery 03/07/25 Ronda Rodríguez [address] [address] Obstetrics and Gynecology 08/02/25 Pily Delaney [employer] Representative 07/22/24 Elie BRASHER [facility] Psychology 12/29/24 documented as of this encounter
--- OUTSIDE RECORDS SUMMARY | 2025-09-15 08:09 | XMS_ITS | Encounter Summary ---
Author Organization [employer] Address [address] [place] [address] Care Team Providers Care Self Pay Collector Name Role Phone Shereen Latham MD Primary Care Provider [phone] Encounter Details Date Type Department Care Team (Late st Contact Info) Description 09/15/2025 8:09 AM EST Hospital Encounter [facility] Radiation Oncology [address] [place] [address] Social History Tobacco Use Types Packs/Day Years [...] Shilpi Sotelo RN documented in this encounter Plan of Treatment Upcoming Encounters Date Type Department Care Team (Late st Contact Info) Description 09/20/2025 2:30 PM EST Appointment [facility] Radiation Oncology [address] [place] [phone] 09/20/2025 2:45 PM EST Appointment [facility] Radiation Oncology [address] [place] [phone] Pal Ureña MD [address] [place] [address] 09/21/2025 2:30 PM EST Appointment [facility] Radiation Oncology [address] [place] [phone] 09/22/2025 2:30 PM EST Appointment [facility] Radiation Oncology [address] [place] [phone] 09/24/2025 10:45 AM EST Appointment [facility] Radiation Oncology [address] [place] [phone] 09/25/2025 2:30 PM EST Appointment [facility] Radiation Oncology [address] [place] [phone] 09/26/2025 2:30 PM EST Appointment [facility] Radiation Oncology [address] [place] [phone] 09/27/2025 2:30 PM EST Appointment [facility] Radiation Oncology [address] [place] [phone] 10/02/2025 2:30 PM EST Appointment [facility] Radiation Oncology [address] [place] [phone] 10/03/2025 1:00 PM EST Appointment [facility] Radiation Oncology [address] [place] [phone] Pal Ureña MD [address] [place] [address] 10/03/2025 2:30 PM EST Appointment [facility] Radiation Oncology [address] [place] [phone] 10/04/2025 2:30 PM EST Appointment [facility]iation Oncology [address] [place] [phone] 10/05/2025 2:30 PM EST Appointment [facility]iation Oncology [address] [place] [phone] 10/06/2025 2:30 PM EST Appointment [facility]iation Oncology [address] [place] [phone] 10/09/2025 2:30 PM EST Appointment [facility]iation Oncology [address] [place] [phone] 10/10/2025 2:30 PM EST Appointment [facility]iation [facility]cology [address] [place] [phone] 10/11/2025 2:30 PM EST Appointment [facility]iation Oncology [address] [place] [phone] 10/12/2025 2:30 PM EST Appointment [facility]iation Oncology [address] [place] [phone] 10/13/2025 2:30 PM EST Appointment [facility]iation Oncology [address] [place] [phone] 10/16/2025 2:30 PM EST Appointment [facility] Radiation Oncology [address] [place] [phone] 10/17/2025 2:30 PM EST Appointment [facility] Radiation Oncology [address] [place] [phone] 10/18/2025 2:30 PM EST Appointment [facility] Radiation Oncology [address] [place] [address] 11/16/2025 2:00 PM EST Procedure visit Orthopedic Surgery - [place] [address] [phone] Antony Garrett, DPWilmar [address] [address] documented as of this encounter Visit Diagnoses Not on filedocumented in this encounter Care Teams Self Pay Collector Relationship Specialty Start Date End Date Shereen Latham MD [address] [phone] PCP - General 01/13/1996 documented as of this encounter
--- NOTE | 2025-09-15 14:01 | MHC.OFFVIS ---
Vital Signs 09/15/25 14:08 Height 5 ft 7 in Weight 195 lb BMI 30.5 Intake Visit Reasons: OV-Left Trigger Thumb, Last Inj 07/25/25 Intake Note: jez is a 49 year old right hand dominant female who presents today for follow up of her bilateral thumb pain. She was last seen on 07/25/25, at that time she was given a left trigger thumb injection. Patient reports today the injection made the pain worse. She is also experiencing left middle and small finger locking and catching. Patient is interested on discussion surgical intervention. Allergies amoxicillin (AMOXICILLIN) Allergy (Intermediate, Verified 09/15/25 14:08) rash, rash/itching sulfamethoxazole (From BACTRIM) Allergy (Intermediate, Verified 09/15/25 14:08) RASH trimethoprim (From BACTRIM) Allergy (Intermediate, Verified 09/15/25 14:08) RASH hydrocodone (Hydrocodone) Allergy (Mild, Verified 09/15/25 14:08) ITCH ibuprofen (From Motrin) Allergy (Mild, Verified 09/15/25 14:08) UPSET STOMACH latex (Latex) Allergy (Mild, Verified 09/15/25 14:08) ITCH HPI HPI OV-Left Trigger Thumb, Last Inj 07/25/25: Details: Azra is a 49 year old right hand dominant female who presents today for follow up of her bilateral thumb pain. She was last seen on 07/25/25, at that time she was given a left trigger thumb injection. Patient reports today the injection made the pain worse. Patient states that she now actively tries to avoid any flexion of the left thumb, as it always catches and is extremely painful to try to extend once it is locked. She is also experiencing left middle and small finger locking and catching. Patient is interested on discussion surgical intervention. [facility] Medical History Asthma GERD (gastroesophageal reflux disease) CKD (chronic kidney disease) Anemia Cardiomyopathy Gout Pulmonary nodule Arthritis Fibromyalgia Anxiety and depression Lower back pain Panic attack H/O ETOH abuse Breast cancer Hypertension Surgical History Hx of surgical biopsy (07/27/25) History of lumpectomy of left breast (06/28/25) Hx of knee surgery Hx of right mastectomy H/O colonoscopy History of carpal tunnel release Hx of tubal ligation History of breast lump/mass excision H/O: hysterectomy Family History Mother Heart disease Alzheimers disease Father Heart disease Brother Asthma Heart disease Social History Household Members: None Housing: Apartment Housing Other:: 4th floor. No elevator Are you a primary healthcare specialist to a significant other at home: No Do you presently have visiting nurse or other home services: No Alcohol intake: current Alcohol intake frequency: holidays/special occasions only Alcohol type: hard liquor Comment: counts correct Patient Tobacco Use Status: Current everyday Tobacco user Tobacco use type: Cigarette Years Smoked: 38YRS e-Cigarette/Vaping Use: Never Used Second Hand Smoke Exposure: Yes Advance Directives Date on File: 02/11/22 service: No Current occupational status: disabled Gender identity: Female Female Reproductive History Menstrual Age of Menarche: 7 Review of Systems Const All systems reviewed & are unremarkable except as noted in HPI and below Physical Exam Vital Signs: BMI result Body Mass Index 30.5 Extrem Other: Patient is alert, oriented, and in no acute distress. Neuro: Normal sensation of the tips of all digits of the bilateral hand at this time Vascular: Cap refill brisk Pain: Tenderness to palpation of the A1 kushal of the left thumb Pain associated with locking and catching of the left thumb There is a visible and palpable locking and catching of the left small finger without pain No locking and catching of the left middle finger noted in the office today Tenderness of the A1 pulleys of every digit of the left hand ROM: There is a visible and palpable locking and catching of the left thumb and left small finger in a flexed position Patient is able to flex and extend all of the digits of bilateral hands in the office today fully and without difficulty Skin: No lacerations or abrasions. General: No ecchymosis, erythema, or evidence of infection. Psych: Appears grossly normal Affect normal Attitude cooperative Assessment & Plan Assessment & Plan (1) Trigger thumb, left thumb: Code(s): M65.312 - Trigger thumb, left thumb Category: Medical (2) Trigger finger, left middle finger: Code(s): M65.332 - Trigger finger, left middle finger Category: Medical (3) Trigger finger, left little finger: Code(s): M65.352 - Trigger finger, left little finger Category: Medical Plan 1. Left trigger thumb 2. Left middle finger trigger finger 3. Left small finger trigger finger I educated the patient about the condition. I discussed both operative and nonoperative treatment options. The patient would like to proceed with surgery. The risks and benefits of operative treatment were discussed with the patient and the patient wishes to proceed with surgery. These risks include, but are not limited to, risk of damage to blood vessels, nerves, tendons, infection, recurrence, incomplete relief of preoperative symptoms, persistent pain, possible need for further surgery, and the risks associated with regional blocks and/or anesthesia. Plan is to take the patient to the operating room at some point in the next few weeks for the following procedures: 1. Left trigger thumb release under local 2. Left middle finger trigger release under local 3. Left small finger trigger release under low All of the preoperative paperwork including the consent was discussed today. All of the patient's questions were answered in the clinic today. The patient understands that they will be in contact with our certified surgical technician to discuss scheduling their procedure. The patient will need to be booked after 10/18/2025, as she will be undergoing radiation until that point we will not be able to have surgery until this is over. Patient denies diabetes, blood thinners, asthma, heart issues, lung issues, kidney issues, or current smoking. Coding Level of Care Code Est Pt Level 4 (63462) Diagnoses Trigger thumb, left thumb M65.312 Trigger finger, left middle finger M65.332 Trigger finger, left little finger M65.352
[2025-09-15 14:08] VITALS: BMI 30.5
--- OUTSIDE RECORDS SUMMARY | 2025-09-15 20:25 | XMS_ITS | Encounter Summary ---
Author Organization [employer] Address [address] [facility] 7 [place] [address] Care Team Providers Care Site Medical Director Name Role Phone Shereen Latham MD Primary Care Provider [phone] Nupur Bullock PharmD Unavailable [phone] Sury Benitez Unavailable [phone] Julius, Nirali OD Unavailable Li Grande MD Unavailable [phone] Anselmo Gates MD Unavailable Margaret Holman Unavailable Herberth Stokes MD Unavailable [phone] Hilton Palacios MD Unavailable Aaron Pringle MD Unavailable [phone] Lori James Unavailable Neelima Raygoza Unavailable Ronda Rodríguez Unavailable Neelima Raygoza Unavailable Neelima Raygoza Unavailable Encounter Details Date Type Department Care Team (Late st Contact Info) Description 05/02/2024 Orders Only [facility] MEDICINE [address] [place] [address] Shereen Latham MD [address] [place] [address] Gout, unspecified cause, unspecified chronicity, unspecified site [...] Description 10/02/2025 2:00 PM EST Office Visit [facility] ADULT DENTAL [address] [place] [address] Paz-Connor, Isa, DDS [address] [place] [address] 2025 2:00 PM EST Office Visit [facility] MEDICINE [address] [place] [address] Shereen Latham MD [address] [place] [address] documented as of this encounter Visit Diagnoses Diagnosis Gout, unspecified cause, unspecified chronicity, unspecified site- Primary documented in this encounter Additional Health Concerns Assessment Noted Time PHQ-9 Depression Total Score: 23 024 1:45 PM EDT documented as of this encounter Care Teams Site Medical Director Relationship Specialty Start Date End Date Shereen Latham MD [address] [place] [address] PCP - General Family Medicine 11/02/18 Nupur Bullock PharmD [address] [place] [address] Pharmacist Internal Medicine 08/09/24 05/15/25 Sury Benitez [address] [place] [address] [place] [address] Pulmonary Disease 09/27/24 Nirali Madrid OD [address] [place] [address] Optometry 10/27/24 Li Grande MD [address] [place] [address] Hematology and Oncology 10/27/24 Anselmo Gates MD [address] [facility] [address] [place] [address] Orthopaedic Surgery 10/27/24 Margaret Holman [address] [facility] [address] [place] [address] Cardiology 10/27/24 Herberth Stokes MD [address] [facility] [address] [place] [address] Gastroenterology 10/27/24 Hilton Palacios MD [address] [facility], [address] [place] [address] Neurology 02/06/25 Aaron Pringle MD [address] [place] [address] General Surgery 03/07/25 Lori James Registered Nurse 06/15/25 06/15/25 Neelima Raygoza 06/15/25 06/16/25 Ronda Rodríguez [address] [place] [address] [address] [place] [address] Obstetrics and Gynecology 08/02/25 Neelima Raygoza 08/14/25 08/23/25 Neelima Raygoza 08/28/25 08/29/25 Pily Delaney Medical Office Professional InstructorBusiness Excellence Leader 07/22/24 Elie Vicky [facility] Psychology 12/29/24 documented as of this encounter
--- OUTSIDE RECORDS SUMMARY | 2025-09-15 20:25 | XMS_ITS | Encounter Summary ---
Author Organization [employer] Address [address] [place] [address] 7 [place] [address] Care Team Providers Care Psychological Science Professor Name Role Phone [place], Shereen NOLASCO Primary Care Provider [phone] Nupur Bullock PharmD Unavailable Sury Benitez Unavailable JuliusNirali castellanos OD Unavailable Li Grande MD Unavailable [phone] Anselmo Gates MD Unavailable Margaret Holman Unavailable Herberth Stokes MD Unavailable [phone] Hilton Palacios MD Unavailable Aaron Pringle MD Unavailable [phone] Lori James Unavailable Neelima Raygoza Unavailable Ronda Rodríguez Unavailable Neelima Raygoza Unavailable Neelima Raygoza Unavailable Reason for Visit * Reason Onset Date Comments Nurse Triage 05/25/2024 Encounter Details Date Type Department Care Team (Late st Contact Info) Description 05/25/2024 Telephone [facility] MED[facility]INE [address] [place] [address] Shereen Latham MD 230 [place] [address] Nurse Triage Social History Tobacco Use Types [...] . Pt reports Pt was seen in [facility] 05/11/24 for continued leftfoot pain and Pt was seen by civil engineering project designer, Leta Lunsford MD 05/11/24 also (report is on the chart). Pt had been advised to stop BP med chlorthalidone per civil engineering project designer [facility] because that particular medication is known to [...] anxiety. Pt is advised to come to [facility] today , open till 8pm, [...] Description 10/02/2025 2:00 PM EST Office Visit [facility] ADULT DENTAL [address] [place] [address] Paz-Connor, Isa, DDS [address] [place] [address] 2025 2:00 PM EST Office Visit [facility] MEDICINE [address] [place] [address] Shereen Latham MD [address] [place] [address] documented as of this encounter Visit Diagnoses Not on filedocumented in this encounter Additional Health Concerns Assessment Noted Time PHQ-9 Depression Total Score: 22 024 9:12 AM EDT documented as of this encounter Care Teams Psychological Science Professor Relationship Specialty Start Date End Date Shereen Latham MD [address] [place] [address] PCP - General Family Medicine 11/02/18 Nupur Bullock, CharleneD [address] [place] [address] Pharmacist Internal Medicine 08/09/24 05/15/25 Sury Benitez [address] [place] [address] [place] [address] Pulmonary Disease 09/27/24 Nirali Madrid OD [address] [place] [address] Optometry 10/27/24 Li Grande MD [address] [place] [address] Hematology and Oncology 10/27/24 Anselmo Gates MD [address] [facility] [address] [place] [address] Orthopaedic Surgery 10/27/24 Margaret Holman [address] 3rd [place] [address] Cardiology 10/27/24 Herberth Stokes MD 11 [facility] [address] [place] [address] Gastroenterology 10/27/24 Hilton Palacios MD [address] [facility], [address] [place] [address] Neurology 02/06/25 Aaron Pringle MD 11 [facility] [address] [place] [address] General Surgery 03/07/25 Lori James Registered Nurse 06/15/25 06/15/25 Neelima Raygoza 06/15/25 06/16/25 Ronda Rodríguez [address] [place] [address] [address] [place] [address] Obstetrics and Gynecology 08/02/25 Neelima Raygoza 08/14/25 08/23/25 Neelima Raygoza 08/28/25 08/29/25 Pily Delaney Supervisor DopingPharmacy Clerk 07/22/24 Elie BRASHER [facility] Psychology 12/29/24 documented as of this encounter
--- OUTSIDE RECORDS SUMMARY | 2025-09-15 20:26 | XMS_ITS | Clinical Summary ---
Author Organization [employer] Address [address] [facility] 7 [place] [address] Care Team Providers Care Logging Assistant Name Role Phone Converse, Shereen NOLASCO Primary Care Provider [phone] Sury Benitez Unavailable [phone] Nirali Madrid OD Unavailable Li Grande MD Unavailable [phone] Anselmo Gates MD Unavailable Margaret Holman Unavailable Herberth Stokes MD Unavailable [phone] Hilton Palacios MD Unavailable Aaron Pringle MD Unavailable [phone] Ronda Rodríguez Unavailable [phone] Allergies Active Allergy Reactions Criticality Noted Date [...] OF BREATH 18 g 10/18/20 24 Active allopurinol (Zyloprim) 100 MG tabletIndicatio [...] tablet 3 01/13/20 25 Active sodium chloride ([place]) 0.65 % nasal sprayIndication s:Nasal congestion Administer [...] DIRECTED 30 patch 3 09/06/20 25 Active magnesium oxide (Mag-Ox) 400 MG tabletIndicatio ns:Hypomagnesem ia TAKE 1 TABLET BY MOUTH QID 360 tablet 3 09/13/20 25 Active lidocaine (Lidoderm) 5 % patchIndication s:Chronic pain of both knees APPLY 1 PATCH TOPICALLY TO SKIN, LEAVE ON FOR 12 HOURS AND OFF FOR 12 HOURS DIRECTED NEEDED FOR PAIN 30 patch 3 08/27/20 24 2024 Discontinued magnesium oxide (Mag-Ox) 400 MG tabletIndicatio ns:Hypomagnesem ia TAKE 1 TABLET BY MOUTH THREE QID 360 tablet 3 11/09/19 25 2024 Discontinued(R eorder (will not trigger notification to Pharmacy)) Acetaminophen Extra Strength 500 MG tabletIndicatio ns:Pain TAKE 1 TABLET BY MOUTH EVERY 6 TO 8 HOURS NEEDED FOR PAIN OR FEVER 60 tablet 07/28/202024 Discontinued Active Problems Problem Noted Date Diagnosed Date Abnormal MRI, breast 08/25/2025 Overview (08/25/2025): Left breast Anal fissure 08/25/2025 Bilateral chronic serous otitis media 08/25/2025 Chest discomfort 08/25/2025 Daytime somnolence 08/25/2025 Joint pain 08/25/2025 Non-restorative sleep 08/25/2025 [...] ,ROM preserved but elicit pain See by community sports coordinator Lilly Clarke MD in 04/19/2025 for mx [...] -pxed topical diclofenac -pt will call her community sports coordinator to schedule f up -has apt already [...] 31.0 to 31.9 in adult 05/24/2025 Overview (09/13/2025): Dietary Recommendations: Fruits, vegetables, whole grains, protein foods, and fat-free or low-fat dairy products are healthy choices. Eat different types of protein foods in your diet. This can include seafood, lean meats, poultry, beans, peas, lentils, nuts, seeds, soy products, and eggs. Limit foods and beverages higher in added sugars, saturated fat, and sodium. Exercise Recommendations: At least 150 minutes of moderate-intensity physical activity per week, or an equivalent combination of moderate- and vigorous-intensity activity Assessment & Plan (09/13/2025 4:09 PM EST): Dietary Recommendations: Fruits, vegetables, whole grains, protein foods, and fat-free or low-fat dairy products are healthy choices. Eat different types of protein foods in your diet. This can include seafood, lean meats, poultry, beans, peas, lentils, nuts, seeds, soy products, and eggs. Limit foods and beverages higher in added sugars, saturated fat, and sodium. Exercise Recommendations: At least 150 minutes of moderate-intensity physical activity per week, or an equivalent combination of moderate- and vigorous-intensity activity. Assessment & Plan (06/22/2025 11:51 AM EDT): [...] weeks, then increase to 7.5 mg weekly Cardiomyopathy 04/04/2025 Assessment & Plan (09/13/2025 4:09 PM EST): Multiple pulmonary nodules 04/04/2025 Atrial tachycardia 03/01/2025 [...] for hear rate monitoring. Assessment & Plan (09/13/2025 4:09 PM EST): Assessment & Plan (06/22/2025 11:51 AM EDT): -per note from [facility] [...] 04/21/24 with uric acid 7.9 -Seen by community sports coordinator Dr. Bernstein 05/11/24 or evaluation of acute gout affecting left foot. -Pt admitted 07/25/24-07/2524 for swelling, pain, and warmth in the right knee. Patient had a low fever (100.3 F) and elevated WBC (70385 cells/uL), CRP, and ESR. Orthopedic surgery consulted [...] daily for prophylaxis -Seen by Dr. Clarke community sports coordinator 04/19/25 Continue allopurinol 200 mg daily, plan to repeat acid level before next visit and increase allopurinol titrate allopurinol if needed to reach serum uric acid level <6 mg/dL(2020 [place] [employer] guideline for the management [...] 04/21/24 with uric acid 7.9 -Seen by community sports coordinator Dr. Bernstein 05/11/24 or evaluation of acute gout affecting left foot. -Pt admitted 07/25/24-07/2524 for swelling, pain, and warmth in the right knee. Patient had a low fever (100.3 F) and elevated WBC (63687 cells/uL), CRP, and ESR. Orthopedic surgery consulted [...] daily for prophylaxis -Seen by Dr. Clarke community sports coordinator 04/19/25 Continue allopurinol 200 mg daily, plan to repeat acid level before next visit and increase allopurinol titrate allopurinol if needed to reach serum uric acid level <6 mg/dL(2020 [place] guideline for the management [...] 04/21/24 with uric acid 7.9 -Seen by community sports coordinator Dr. Bernstein 05/11/24 or evaluation of acute gout affecting left foot. -Pt admitted 07/25/24-07/2524 for swelling, pain, and warmth in the right knee. Patient had a low fever (100.3 F) and elevated WBC (28420 cells/uL), CRP, and ESR. Orthopedic surgery consulted [...] reach serum uric acid level <6 mg/dL(2020 [place] guideline for the management [...] reach serum uric acid level <6 mg/dL(2020 [place] [employer] guideline for the management [...] low fever (100.3 F) and elevated WBC (24461 cells/uL), CRP, and ESR. Orthopedic surgery consulted [...] failure with reduced EF during admission to [facility] 06/22/24. - She was started on [...] effusion and indeterminate diastolic function -Seen by [facility] 08/01/24 : exercise nuclear stress [...] until 07/2024. Last echo 06/23/2024 during [facility] [place], showed EF 55-60%, small [...] months, sooner if needed Assessment & Plan (09/13/2025 4:09 PM EST): -Echocardiogram done 10/18/2021 had shown EF 30-35%, mild LVH. follow-up after that finding. A stress test at that time was incomplete. -Dx with acute congestive heart failure with reduced EF during admission to [facility] 06/22/24. - She was started on [...] effusion and indeterminate diastolic function -Seen by [facility] 08/01/24 : exercise nuclear stress [...] until 07/2024. Last echo 06/23/2024 during [facility] [place], showed EF 55-60%, small [...] failure with reduced EF during admission to [facility] 06/22/24. - She was started on [...] effusion and indeterminate diastolic function -Seen by [facility] 08/01/24 : exercise nuclear stress [...] until 07/2024. Last echo 06/23/2024 during [facility] [place], showed EF 55-60%, small [...] with reduced EF during recent admission to [facility] 06/22/24. Pt was volume overloaded therefore [...] with reduced EF during recent admission to [facility] 06/22/24. Pt was volume overloaded therefore [...] failure with reduced EF during admission to [facility] 06/22/24. - She was started on [...] effusion and indeterminate diastolic function -Seen by [facility] 08/01/24 : exercise nuclear stress [...] failure with reduced EF during admission to [facility] 06/22/24. - She was started on [...] effusion and indeterminate diastolic function -Seen by [facility] 08/01/24 : exercise nuclear stress [...] Complex care coordination 01/11/2024 Overview (01/11/2024): -Has BAND TUMBLER services with [facility] -She is applying [facility] 01/11/2024 -In our C3 complex care management program -referred to [facility] on 01/04/2024 -Messaged sent to C3 personal care aide for assistance in care visits Assessment & Plan (06/22/2025 11:51 AM EDT): -Has BAND TUMBLER services with [facility] -She is applying [facility] 01/11/2024 -In our C3 complex care management program -referred to [facility] on 01/04/2024 -Messaged sent to C3 personal care aide for assistance in care visits Assessment & Plan (04/26/2025 4:15 PM EDT): -Has BAND TUMBLER services with [facility] -Leonora is applying [facility] 01/11/2024 -In our complex care management program -referred to [facility] on 01/04/2024 -Messaged sent to personal care aide for assistance in care visits Assessment & Plan (12/29/2024 10:21 AM EST): -Has BAND TUMBLER services with [facility] Martin is applying [facility] 01/11/2024 -In our complex care management program -referred to [facility] on 01/04/2024 -Messaged sent to C3 personal care aide for assistance in care visits Assessment & Plan (08/24/2024 9:19 AM EDT): -Has BAND TUMBLER services with [facility] -Leonora is applying [facility] 01/11/2024 -In our complex care management program -referred to [facility] on 01/04/2024 -Messaged sent to C3 personal care aide for assistance in care visits Assessment & Plan (06/29/2024 4:06 PM EDT): -Has BAND TUMBLER services with [facility] Martin is applying [facility] 01/11/2024 -In our complex care management program -referred to [facility] on 01/04/2024 -Messaged sent to C3 personal care aide for assistance in care visits Assessment & Plan (01/11/2024 9:30 AM EDT): -Has BAND TUMBLER services with [facility] Martin is applying [facility] 01/11/2024 -In our complex care management program -referred to [facility] on 01/04/2024 -Messaged sent to C3 personal care aide for assistance in care visits [...] Pain Management team and will reconnect with [facility]. Information given to patient. PLAN: (check all that apply) Behavioral Health Integration Plan Self- referred to [facility]/N per patient's preference. Assessment & Plan (11/24/2023 11:53 AM EST): STEFANY-7 Total Score: 21 (10/22/2023 10:44 AM) New/Additional Services needed Off-site services for , Behavioral Health Integration Plan External OP therapy referral , Patient Self Plan Patient to utilize skills provided in intervention , Patient to reach out to [facility] team as needed, and Patient to engage in OP therapy Provided patient with support in scheduling an Intake appt with [facility]. Anemia 07/29/2023 Overview (06/22/2025): Lab Results Component Value Date FERRITIN 144 03/02/2025 FERRITIN 180 11/08/2024 HGB 11.2 (L) 03/02/2025 HGB 11.4 (L) 12/29/2024 HGB 12.5 07/01/2022 HGB 12.2 01/23/2022 HEMATOCRIT 37.0 07/01/2022 HEMATOCRIT 36.0 01/23/2022 Pt does not want to take iron orally, she wants to go back to hematology for transfusion - Iron infusions ordered by [employer] Field Coordinator DR. Grande - She recieved two sessions of iron infusion, but has not been to her third session - Hematology appointment scheduled on 12/23/23 - Not seeing Dr. Gradne anymore and reports she cannot take iron [...] for transfusion - Iron infusions ordered by [employer] Field Coordinator DR. Grande - She recieved two [...] for transfusion - Iron infusions ordered by [employer] Field Coordinator DR. Grande - She recieved two [...] for transfusion - Iron infusions ordered by [facility] Field Coordinator DR. Grande - She recieved two [...] for transfusion - Iron infusions ordered by [employer] Field Coordinator DR. Grande - She recieved two [...] repeat labs 12/29/24, normal Assessment & Plan (09/13/2025 4:09 PM EST): Low normal 09/07/25 1.6, increase magnesium 400 to from TID to QID Orders: Magnesium; Future Basic Metabolic Panel; Future magnesium oxide (Mag-Ox) 400 MG tablet; TAKE 1 TABLET BY MOUTH QID Assessment & Plan (08/25/2025 4:03 PM EDT): [...] pedro back by: Janett Ortega Person calling: [employer] Date:06/16/24 Time: 1218 Saw CDTM on 08/16/24 [...] pedro back by: Janett Ortega Person calling: [employer] Date:06/16/24 Time: 1218 Assessment & Plan (07/29/2023 4:34 PM EDT): Received magnesium IV in ER -Dose increased to TID - Recheck in 2 weeks Other specified health status 07/20/2023 Overview (06/22/2025): -next physical exam due after 06/22/26 -eye care facilitated by [facility] -dental home is [facility] -health care proxy filed 06/29/24 Assessment & Plan (06/22/2025 11:51 AM EDT): -next physical exam due after 06/22/26 -eye care facilitated by [facility] -dental home is [facility] -health care proxy filed 06/29/24 Assessment & Plan (06/29/2024 4:03 PM EDT): -next physical exam due after 06/29/25 -eye care facilitated by [facility] -dental home is [facility] -health care proxy given and filed 06/29/24 Stage 3 chronic kidney disease (CMS/HCC) 023 Assessment & Plan (09/13/2025 4:09 PM EST): -labs ordered for further evaluation: Albumin, random urine w/ creatinine, Creatinine, Basic metabolic Panel. Assessment & Plan (12/14/2023 12:11 PM EST): [...] acupuncture clinic on 04/26/25 Assessment & Plan (09/13/2025 4:09 PM EST): Pt has chronic pain syndrome. Multiple [...] ultrasound sound for abdominal pain at [facility] revealing diffusely echogenic parenchyma with [...] ultrasound sound for abdominal pain at [facility] revealing diffusely echogenic parenchyma with [...] ultrasound sound for abdominal pain at [facility] revealing diffusely echogenic parenchyma with [...] ultrasound sound for abdominal pain at [facility] revealing diffusely echogenic parenchyma with [...] ultrasound sound for abdominal pain at [facility] revealing diffusely echogenic parenchyma with [...] had ultrasound sound for abdominal pain at [facility]. Ultrasound showed diffusely echogenic parenchyma with focal sparing around the gallbladder. No suspicious lesions. Impression showed liver likely representing hepatic steatosis and non- obstructing right kidney stone. Benign essential hypertension 12/13/2021 Overview (06/22/2025): -Blood pressure is at goal -Continue lifestyle modifications -Continue current medications - Prescribed spironolactone (Aldactone) 25 MG tablet 11/09/24 -06/20/25 corporate safety director held spironolactone Assessment & Plan (09/13/2025 4:09 PM EST): -Blood pressure is at goal -Continue lifestyle modifications -Continue current medications - Prescribed spironolactone (Aldactone) 25 MG tablet 11/09/24 -06/20/25 corporate safety director held spironolactone Assessment & Plan (06/22/2025 11:51 AM EDT): -Blood pressure is at goal -Continue lifestyle modifications -Continue current medications - Prescribed spironolactone (Aldactone) 25 MG tablet 11/09/24 -06/20/25 corporate safety director held spironolactone Assessment & Plan (04/26/2025 4:15 [...] been [facility] for Support and Recovery but has not [...] subsequently declined -Admitted for alcohol detox at [facility] 04/09/24 -reports she is currently not drinking 08/24/24. Encouraged to continue abstinence. -Vague about drinking, but seemingly still drinking 12/29/24 -reports no EtOH 04/26/25, thiamine and folate were discontinued due to polypharmacy and desire to decrease pill burden 04/26/25 Assessment & Plan (09/13/2025 4:09 PM EST): Longstanding, severe olesya drinking with hx admissions and withdrawal. Stable doing well with significant decrease in intake. Assessment & Plan (04/26/2025 4:15 PM EDT): Longstanding, severe olesya drinking with hx admissions and withdrawal. Care complicated by difficulty accepting/comprehending risk. We have many times discussed risks including liver damage, liver failure and the risk of dying if she continues to drink. At times she has been referred to [facility] for Support and Recovery but has not [...] subsequently declined -Admitted for alcohol detox at [facility] 04/09/24 -reports she is currently not [...] been referred to [facility] for Support and Recovery but has not [...] subsequently declined -Admitted for alcohol detox at [facility] 04/09/24 -reports she is currently not [...] been referred to [facility] for Support and Recovery but has not [...] subsequently declined -Admitted for alcohol detox at [facility] 04/09/24 -reports she is currently not [...] received phenobarb improved her symptoms, patient declined manager life help to place her in rehab, [...] received phenobarb improved her symptoms, patient declined manager life help to place her in rehab, [...] tumor 2.2 cm ER positive, AK positive, HER-2/PEREZ negative, two sentinel nodes negative. -S/p RIGHT mastectomy with sentinel node bx by Dr. Prescott [facility] -Adriamycin/Cytoxan based chemotherapy started Oct, completed [...] focus of atypical ductal hyperplasia (ADH) -pathology 7/31/25 Breast, left, excision: Breast tissue with usual [...] Dr. 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 -S/p RIGHT mastectomy with sentinel node bx by Dr. Prescott [facility] -Adriamycin/Cytoxan based chemotherapy started Oct, completed [...] Dr. Grande and plan for radiation at [facility] Assessment & Plan (06/22/2025 11:51 AM EDT): Adenocarcinoma of the right breast with DCIS grade 3, cribriform type, invasive tumor 2.2 cm ER positive, AK positive, HER-2/PEREZ negative, two sentinel nodes negative. -S/p RIGHT mastectomy with sentinel node bx by [facility] -Adriamycin/Cytoxan based chemotherapy started Oct, completed [...] tumor 2.2 cm ER positive, AK positive, HER-2/PEREZ negative, two sentinel nodes negative. -S/p RIGHT mastectomy with sentinel node bx by Dr. Prescott [facility] -Adriamycin/Cytoxan based chemotherapy started Oct, completed [...] tumor 2.2 cm ER positive, AK positive, HER-2/PEREZ negative, two sentinel nodes negative. -[facility] Oct, [...] tumor 2.2 cm ER positive, AK positive, HER-2/PEREZ negative, two sentinel nodes negative. -[facility] started Oct, [...] tumor 2.2 cm ER positive, AK positive, HER-2/PEREZ negative, two sentinel nodes negative. -S/[facility]an [facility] started Oct, [...] tumor 2.2 cm ER positive, AK positive, HER-2/PEREZ negative, two sentinel nodes negative. -S/p RIGHT mastectomy with sentinel node bx by Dr. Prescott [facility] -Adriamycin/Cytoxan based chemotherapy started Oct, completed [...] tumor 2.2 cm ER positive, AK positive, HER-2/PEREZ negative, two sentinel nodes negative. -S/p RIGHT mastectomy with sentinel node bx by Dr. Prescott [facility] -Adriamycin/Cytoxan based chemotherapy started Oct, completed [...] tumor 2.2 cm ER positive, AK positive, HER-2/PEREZ negative, two sentinel nodes negative. -S/p [facility] started Oct, [...] tumor 2.2 cm ER positive, AK positive, HER-2/PEREZ negative, two sentinel nodes negative. -S/p [facility]an [facility] started Oct, [...] tumor 2.2 cm ER positive, AK positive, HER-2/PEREZ negative, two sentinel nodes negative. -S/p [facility]an [facility] started Oct, [...] tumor 2.2 cm ER positive, AK positive, HER-2/PEREZ negative, two sentinel nodes negative. -S/p RIGHT mastectomy with sentinel node bx by Dr. Prescott [facility] -Adriamycin/Cytoxan based chemotherapy started Oct, completed [...] tumor 2.2 cm ER positive, AK positive, HER-2/PEREZ negative, two sentinel nodes negative. -S/p RIGHT mastectomy with sentinel node bx by Dr. Prescott [facility] -Adriamycin/Cytoxan based chemotherapy started Oct, completed [...] Overview (06/22/2025): Lab Results Component Value Date [id number] 79.4 05/15/2025 [id number] 58.3 06/16/2024 [id number] 106.4 01/04/2024 Assessment & Plan (04/26/2025 4:15 PM EDT): Lab Results Component Value Date [id number] 58.3 06/16/2024 [id number] 106.4 01/04/2024 [id number] 76.8 09/22/2023 Orders: Vitamin D, 25-Hydroxy, Total, Immunoassay; Future Assessment & Plan (06/29/2024 3:39 PM EDT): Lab Results Component Value Date [id number] 58.3 06/16/2024 [id number] 106.4 01/04/2024 [id number] 76.8 09/22/2023 Assessment & Plan (12/14/2023 12:09 PM EST): Lab Results Component Value Date [id number] 76.8 09/22/2023 -Labs ordered for further evaluation: Vitmain D, 25-hydroxy, Total, Immunoassay. 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 Per Dr. Krish Loomis's note from [facility], pt was due for repeat colposcopy in [...] CIN2-3. Per Dr. Krish Loomis's note from [facility], pt was due for repeat colposcopy in [...] CIN2-3. Per Dr. Krish Loomis's note from [facility], pt was due for repeat colposcopy in [...] CIN2-3. Per Dr. Krish Loomis's note from [facility], pt was due for repeat colposcopy in 2011. -Total Vaginal Hysterectomy 08/27/17 ('with MONICA 2 pathology and negative resection margins'). Per note dated 11/27/17 Dr. Reyes; 'patient to discontinue PAP screening'. -Vaginal pap NILM HPV negative 08/2018, per not no further paps indicated Severe episode of recurrent major depressive disorder, without psychotic features ([facility]) 04/19/2014 Overview (12/29/2024): -has therapist in [place]. Has appt. 12/30/24. Had intake for psychiatry and has follow-up appt in 12/2024. Assessment & Plan (09/13/2025 4:09 PM EST): -has therapist in [place]. Has [...] Health Integration Plan Internal Follow up with [facility] Patient Self Plan Patient to utilize skills provided in intervention , Patient to reach out to [facility] team as needed, Patient to reach out to [facility] as needed, and will contact [facility] Intake number to connect with [facility] OP services, and psychiatrist. Rule Out Diagnoses: [...] Encouraged smoking cessation resources such as pharmacomtherapy, [facility] smoking cessation group, and [facility] pharmacy smoking cessation clinic Discussed [...] Ancillary findings as discussed. Assessment & Plan (09/13/2025 4:09 PM EST): Cigg/day: 5-6 -Age started: age 10 -Total years smokinyrs -Pack year history: 20 pack year Encouraged smoking cessation resources such as pharmacomtherapy, [facility] smoking cessation group, and [facility] pharmacy smoking cessation clinic Discussed [...] as pharmacomtherapy, [facility] smoking cessation group, and [facility] pharmacy smoking cessation clinic Discussed [...] as pharmacomtherapy, [facility] smoking cessation group, and [facility] pharmacy smoking cessation clinic Discussed [...] as pharmacomtherapy, [facility] smoking cessation group, and [facility] pharmacy smoking cessation clinic Discussed [...] as pharmacomtherapy, [facility] smoking cessation group, and [facility] pharmacy smoking cessation clinic Discussed [...] as pharmacomtherapy, [facility] smoking cessation group, and [facility] pharmacy smoking cessation clinic Discussed USPSTF recommends annual lung cancer screening with low dose CT in people who meet the following criteria: -ages 50 to 80 years. -have a 20 pack-year smoking history. -currently smoke cigarettes or quit within the past 15 years. -LDCT: Resolved Problems Problem Noted Date Diagnosed Date Resolved Date Invasive ductal carcinoma of left breast (CMS/HCC) 08/25/2025 09/12/2025 Shortness of breath 06/14/2025 08/02/20 25 Precordial pain 06/14/2025 08/02/2025 Assessment & Plan (06/14/2025 12:20 PM EDT): Patient is high risk I will give aspirin 325mg at office EKG done sinus tachy prolonged Qtc I will send her to the emergency room, EMS called Ductal hyperplasia of breast 05/24/2025 09/12/2025 Overview (05/24/2025): -LEFT mammogram and US 02/23/25 [...] BREAST: BI-RADS 2 benign. Abnormal mammogram 04/26/2025 5 Overview (07/06/2025): Hx breast cancer . -Mammogram [...] HEMATOCRIT 36.0 01/23/2022 -will continue to monitor Abdominal wall strain 04/04/20252024 Chronic bronchitis (CMS/HCC) [...] of breath) 06/29/2024 Overview (12/29/2024): -Followed by [facility] Pulmonology with Sury Benitez NP -02/2024 [...] Plan (12/29/2024 11:03 AM EST): -Followed by [facility]monology with Sury Benitez NP -02/2024 [...] if needed. -pt reports she saw her bankruptcy manager and is continuing management with them. . Assessment & Plan (07/13/2024 2:15 PM EDT): -referred to pulmonology 06/29/24 -Pt reports she has appt to see bankruptcy manager 08/01/24 Assessment & Plan (06/29/2024 4:49 PM [...] flare 05/11/2024 12/29/2024 Overview (07/13/2024): Seen by community sports coordinator Dr. Bernstein 05/11/24 or evaluation of acute [...] Plan (07/13/2024 2:21 PM EDT): Seen by community sports coordinator Dr. Bernstein 05/11/24 or evaluation of acute [...] EDT): Patient requesting a Physical for her BAND TUMBLER hours to be re-instated. On exam today, [...] [facility] [place] with expect Hypertension 05/26/2023 12/14/2023 Assessment & Plan (05/26/2023 12:12 PM EDT): Not controlled today Pt says she took her Lisinopril and chlorthalidone this morning Hypokalemia 12/09/2022 10/27/2024 Hyperaldosteronism 11/16/2022 3 Overview (11/16/2022): Seen by [facility] 04/03/2022. Initially seen 12/2021 for hyperaldosteronism. Labs [facility] [place] aldosterone 8, plasma renin 0.11, aldosterone/renin 72.7. She was likely on spironolactone and lisinopril at time of labs. Advise no spironolactone for 6 weeks and recheck renin aldosterone levels with renal panel and magnesium in drum puller. Assessment & Plan (11/16/2022 10:55 AM EST): Seen by [facility] 04/03/2022. Initially seen 12/2021 for hyperaldosteronism. [place] [facility] [place] aldosterone 8, plasma renin 0.11, aldosterone/renin 72.7. She was likely on spironolactone and lisinopril at time of labs. Advise no spironolactone for 6 weeks and recheck renin aldosterone levels with renal panel and magnesium in drum puller. Generalized pain 09/14/2014 06/08/2025 Anxiety 04/19/2014 01/28/2024 Polysubstance abuse 04/19/2014 04/04/20 25 Encounters Date Type Department Care Team Description 09/13/2025 3:15 PM EST Office Visit [facility] MEDICINE [address] [place] [phone] Shereen Latham MD Chronic heart failure with preserved ejection fraction [...] of 31.0 to 31.9 in adult; Fibromyalgia 09/13/[address] [address] Keira Escobar RN Results 09/13/2025 Travel 09/12/[address] [address] Shereen Latham MD chart prep 09/07/2025 Orders Only GENERIC EXTERNAL DATA DEPARTMENT Provider, Generic External Data 09/06/2025 Orders Only [facility] External Provider, [facility] 09/05/2025 Orders Only [facility] WALK-IN CENTER [address] [place] [phone] Shereen Latham MD Hypomagnesemia (Primary Dx) 09/05/2025 Refill [facility] MED & PEDS [address] [place] [address] Shereen Latham MD Pain; Chronic pain of both knees 09/01/2025 Patient Outreach [address] [address] Shereen Latham MD Care Coordination ([facility] outreach for SDOH PT-1 and food needs-referral completed /) 09/01/[address] [address] Shereen Latham MD Referral; Lab Orders 09/01/[address] [address] Shereen Latham MD pt1 08/29/2025 Patient Outreach [facility] MED & PEDS [address] [place], [place] [phone] Shereen Latham MD Care Coordination (Communication to pts assigned CP Coordinator ) 08/28/2025 Patient Outreach [facility] MED & PEDS [address] [place], [place] [phone] Shereen Latham MD 08/28/2025 Patient Outreach [facility] MED & PEDS [address] [place], [place] [phone] Shereen Latham MD Care Coordination (CP Care Coordination Chart Review) 08/28/2025 Patient Outreach [facility] MED & PEDS [address] [place], [place] [phone] Shereen Latham MD Care Coordination ([facility] Ed F/U) 08/28/2025 Patient Outreach [address] [address] Shereen Latham MD 08/25/2025 11:00 AM EDT Office Visit [facility] WALK-IN [address] [address] Mayda Rush MD Prolonged QT syndrome (Primary Dx); Invasive ductal carcinoma of left breast (CMS/HCC) ([facility]); Complex care coordination; Palpitations with regular cardiac rhythm; Chronic heart failure with preserved ejection fraction (HFpEF) ([facility]); Hypomagnesemia 08/25/2025 Orders Only GENERIC EXTERNAL DATA DEPARTMENT Provider, Generic External Data 08/23/2025 Patient Outreach [facility] MED & PEDS [address] [place], [place] [phone] Shereen Latham MD Care Coordination (Communication to pts assigned CP Coordinator) 08/15/[address] [address] Shereen Latham MD ER Follow-up 08/15/2025 Patient Outreach [facility] MED & PEDS [address] [place], [place] [phone] Shereen Latham MD Care Coordination (CP ED F/U) 08/15/2025 Patient Outreach [facility] MED & PEDS [address] [place] [address] Shereen Latham MD Care Coordination (CP Chart review) 08/15/2025 Telephone [facility] ADULT DENTAL [address] [place] [phone] Isa De La Rosa, JUAN FRANCISCOS rs no show appt 08/14/2025 Patient Outreach [address] [address] Shereen Latham MD 07/28/2025 Refill [facility] MED & PEDS [address] [place], [place] [phone] Tari Chance NP Pain 07/27/2025 Orders Only GENERIC EXTERNAL DATA DEPARTMENT Provider, Generic External Data Bilateral malignant neoplasm of breast in female, unspecified estrogen receptor status, unspecified site of breast (CMS/HCC) (Primary Dx) 07/25/[address] [address] Shereen Latham MD Call Back Request 07/20/2025 1:15 PM EDT Office Visit [address] [address] Junie Padron MD Pain in both hands (Primary Dx); Bilateral hand pain 07/20/2025 Results Follow-Up [address] [address] Junie Padron MD C-reactive Protein, Sed Rate by Modified Westergren, Uric acid, XR Hand 3+Views Bilateral 07/20/2025 Travel 07/02/[address] [address] Shereen Latham MD Alcohol abuse 06/28/2025 Orders Only [facility] External Provider, [facility] Bilateral malignant neoplasm of breast in female, unspecified estrogen receptor status, unspecified site of breast (CMS/HCC) (Primary Dx); Abnormal mammogram 06/23/[address] [address] Shereen Latham MD 06/22/2025 11:15 AM EDT Office Visit [address] [address] Shereen Latham MD Trigger finger, unspecified finger, [...] specified health status 06/22/2025 Travel 06/21/[address] [address] Shereen Latham MD chartprep 06/16/2025 10:15 AM EDT Office Visit [address] [address] Naomi De Jesus ANP Right otitis media, unspecified otitis media type (Primary Dx); Heart failure with preserved ejection fraction, unspecified HF chronicity (CMS/HCC); Shortness of breath; Nasal congestion 06/16/2025 Telephone [facility] ADULT DENTAL [address] [place] [phone] Isa De La Rosa DDS active requested appt 06/16/2025 Patient Outreach [facility] MED & PEDS [address] [place] [address] Shereen Latham MD Care Coordination (Communication to PT assigned CP Coordinator) 06/16/2025 Travel 06/15/[address] [address] Shereen Latham MD ER Follow-up 06/15/2025 Patient Outreach [facility] MED & PEDS [address] [place] [address] Shereen Latham MD Care Coordination ([facility] ED Follow Up) 06/15/2025 Patient Outreach [facility] CHC MED & PEDS [address] [place] [address] Shereen Latham MD Care Coordination (CP Care Coordination Chart Review) 06/15/2025 Patient Outreach [facility] MEDICINE [address] [place] [address] Shereen Latham MD 06/15/2025 Patient Outreach [facility] MEDICINE [address] [place] [address] Shereen Latham MD from Last 3 Months Immunizations Immunization Administration [...] (198 lb) 09/13/2025 3:27 PM EST Height 170.2 cm (5' 7 ) 07/20/2025 2:10 PM EDT Body Mass Index 31.01 07/20/2025 2:10 PM EDT Plan of Treatment Upcoming Encounters Date Type Department Care Team (Late st Contact Info) Description 10/02/2025 2:00 PM EST Office Visit [facility] ADULT DENTAL [address] [place] [address] Rj Isa, DDS [address] [place] [address] 2025 2:00 PM EST Office Visit [facility] MEDICINE [address] [place] [address] Shereen Latham MD [address] [place], [place] [phone] Health Maintenance Due Date Last Done Comments CT Colonography 1975 FIT 1975 Sigmoidoscopy 1975 DTaP/Tdap/Td Vaccines (4 - Tdap) 08/11/2020 08/10/2020, 07/16/2007, 07/05/1981, Additional history exists RSV Patients and Patients Aged 60 years or older (1 - Risk 50-74 years 1-dose series) 2023 Zoster Vaccines (1 of 2) 2023 FOBT 08/27/2024 08/27/2023 Diagnostic Breast Imaging 07/02/20252024, 05/18/2025, 04/20/2025, Additional history exists Mammogram 07/02/2025 06/01/2025, 07/11/2024, 05/18/2025, Additional history exists COVID-19 Vaccine (2 - [...] Cancer Screening 07/11/2026 FIT DNA/Cologuard 08/27/2026 08/27/2023 Tobacco Screening 09/13/2026 09/13/2025 Dental X-Ray: Full Mouth 03/30/2028 03/29/2025, 01/2019 Lipid Panel 12/29/2029 12/29/2024, 06/02, 09/22/2023, Additional history exists IPV Vaccines Completed 07/05/1981, 04/1980, 08/24/1978, Additional [...] 07/27/2025 7:47 AM EDT AMB REFERRAL TO OB-HAND STRIPER Routine 07/24/2025 Sebaceous cyst of labia XR [...] SURGICAL SPECIMEN Routine 06/28/2025 10:13 AM EDT BI MAMMOGRAM DIAGNOSTIC TOMOSYNTHESIS LEFT Routine 06/01/2025 [...] 3:47 PM EST) NT-proBNP 516.7(H) <300 pg/mL [facility] Comment:Reference Range:Age Group (years) NT-proBNP (pg/ml) InterpretationAll <300 Negative: HF unlikelyFor patients presenting to the ED with clinical suspicion ofnew onset or worsening HF, see below:18 to <50 >299.9 to <450.0 Grayzone: Doctezgr10 to 75 >299.9 to <900.0 other causes of>75 >299.9 to <1800.0 NT-proBNP [id number] to <50 >449.9 Positive: HF buanyl04-40 >899.9>75 >1799.9Note: Elevated NT-proBNP levels should be interpreted inthe context of other clinical information. 09/07/2025 3:47 PM EST 09/07/2025 5:36 PM EST us Generic External Data Provider LAB BLOOD ORDERAB LES Final Result [facility] [address] [place] [phone] * (ABNORMAL) CBC auto differential (09/07/2025 3:47 PM EST) Only the most recent of2 resultswithin the time period is included. White Blood Count 9.6 4.8 - 10.8 X10*3/uL [facility] Red Blood Count 3.89(L) 4.20 - 5.50 X10*6/uL [facility] Hemoglobin 10.9(L) 12.0 - 16.0 g/dl [facility] Hematocrit 34.0(L) 37.0 - 47.0 % [facility] Mean Corpuscular Volume 87.4 80.0 - 98.0 fL [facility] Mean Corpuscular Hemoglobin 28.0 27.0 - 33.0 pg [facility] Mean Corpuscular HGB Conc 32.1 31.0 - 35.0 g/dl [facility] Red Cell Distribution Width 14.2 11.0 - 16.0 % [facility] Platelet Count 316 160 - 400 X10*3/uL [facility] Mean Platelet Volume 11.0 9.4 - 12.3 fL [facility] Neutrophils Percent Auto 54.5 45 - 73 % [facility] Imm Gran Pct Auto 0.4 0.0 - 0.4 % [facility] Lymphocytes Percent Auto 34.7 20 - 40 % [facility] Monocytes Percent Auto 7.1 2 - 11 % [facility] Eosinophils Percent Auto 2.7 0 - 4 % [facility] Basophils Percent Auto 0.6 0 - 2 % [facility] NRBC Pct Auto 0.0 0.0 - 0.2 /100WBC [facility] Neutrophils Absolute Auto 5.2 2.0 - 8.3 x10*3/uL [facility] Imm Gran Abs Auto 0.04(H) 0.00 - 0.03 X10*3/uL [facility] Lymphocytes Absolute Auto 3.3 1.2 - 4.9 X10*3/uL [facility] Monocytes Absolute Auto 0.7 0.1 - 1.2 X10*3/uL [facility] Eosinophils Absolute Auto 0.3 0.0 - 0.4 X10*3/uL [facility] Basophils Absolute Auto 0.1 0.0 - 0.2 X10*3/uL [facility] NRBC Abs Auto 0.000 0.0 - 0.012 X10*3/uL [facility] 09/07/2025 3:47 PM EST 09/07/2025 5:36 PM EST us Generic External Data Provider LAB BLOOD ORDERAB LES Final Result [facility] [address] [place] [phone] * CT Chest w/o Contrast (09/06/2025 4:28 PM EST) Anatomical Region Laterality Modality Body, Chest Computed Tomogra phy 09/06/2025 4:28 PM EST Narrative 09/06/2025 5:27 PM EST [address] [address] [address] Scan Report Signed Patient: Azra Cast MR#: [id number] : 1975 Acct:[id number] Age/Sex: 49 / F ADM Date: 09/06/25 Loc: HO.CT Attending Dr: Sury Benitez NP Ordering Physician: Sury Benitez NP Date of Service: 09/06/25 Procedure(s): CT chest wo IV con Accession Number(s): [id number] cc: Shereen Latham MD; Sury Benitez NP Report Number: [id number]: Total DLP = 198.00 mGy-cm Reason for [...] by: Chandrika Garg MD 09/06/2025 05:23 PM [facility] Dictated By: Chandrika Garg MD Signed By: <Electronically signed by Chandrika Garg MD in OV> 09/06/25 1723 DD/ 1628 TD/TT: 09/06/25 1640 Swimming Coach Or Instructor: CAROLINE Procedure Note Donotuseinterpreter, Image - 09/06/[address] [address] [address] Scan Report Signed Patient: Maged Cast#: [id number] : 1975Acct:[id number] Age/Sex: 49 / FADM Date: 09/06/25 Loc: HO.CT Attending Dr: Sury Benitez NP Ordering Physician: Sury Benitez NP Date of Service: 09/06/25 Procedure(s): CT chest wo IV con Accession Number(s): [id number] cc: Shereen Latham MD; Sury Benitez NP Report Number: [id number]: Total DLP = 198.00 mGy-cm Reason for [...] 09/06/25 1723 DD/ 1628 TD/TT: 09/06/25 1640 Swimming Coach Or Instructor: CAROLINE [facility] External Provider IMG CT PROCEDURES Final Result * ECG 12 lead (08/25/2025 3:59 PM EDT) Narrative Mayda Rush MD - 08/25/2025 3:59 PM EDT Qtc 526, VR 98, minimal high-lateral repolarization Mayda Rush MD ECG ORDERABLES Final Result * CT Head w/o Contrast (08/25/2025 3:28 PM EDT) Anatomical Region Laterality Modality Head, Neck Computed Tomogra phy 08/25/2025 3:28 PM EDT Narrative 08/25/2025 3:53 PM EDT [address] [place] [address] CT Scan Report Signed Patient: Azra Cast MR#: [id number] : 1975 Acct:[id number] Age/Sex: 49 / F ADM Date: 08/25/25 Loc: HO.ED Attending Dr: Ordering Physician: Leighann Ordonez DO Date of Service: 08/25/25 Procedure(s): CT head/brain wo IV con Accession Number(s): [id number] cc: Shereen Latham MD; Leighann Ordonez DO Report Number: [id number]: Total DLP = 712.00 mGy-cm Reason for [...] 08/25/25 1550 DD/ 1528 TD/TT: 08/25/25 1538 Swimming Coach Or Instructor: CAROLINE Procedure Note Donotuseinterpreter, Image - 08/25/[address] [address] [address] Scan Report Signed Patient: Maged Cast#: [id number] : 1975Acct:[id number] Age/Sex: 49 / FADM Date: 08/25/25 Loc: HO.ED Attending Dr: Ordering Physician: Leighann Ordonez DO Date of Service: 08/25/25 Procedure(s): CT head/brain wo IV con Accession Number(s): [id number] cc: Shereen Latham MD; Leighann Ordonez DO Report Number: [id number]: Total DLP = 712.00 mGy-cm Reason for [...] 08/25/25 1550 DD/ 1528 TD/TT: 08/25/25 1538 Swimming Coach Or Instructor: CAROLINE [facility] External Provider IMG CT PROCEDURES Final Result * High Sensitivity Troponin I (08/25/2025 12:45 PM EDT) [facility] TROPONIN I HIGH SENSITIVITY 12.2 <3.5 - 17.0 ng/L [facility] Comment:The Henriquez high sens itivity Troponin-I results should beused in conjunction with other diagnostic information suchas ECG, clinical observations and information, and patientsymptoms to aid in the diagnosis of NV. 08/25/2025 12:4 5 PM EDT 08/25/2025 12:52 PM EDT Generic External Data Provider LAB BLOOD ORDERAB LES Final Result Performing Organization Address [facility]/ZIP Co de Phone Number [facility] [address] [place] [phone] * Ethanol (08/25/2025 12:45 PM EDT) [facility] ETHANOL (MG/DL) IN SER/PLAS 11 mg/dL [facility] Comment:Serum/plasma ethanol results are to be used formedical/treatment purposes only. 08/25/2025 12:4 5 PM EDT 08/25/2025 12:52 PM EDT Generic External Data Provider LAB BLOOD ORDERAB LES Final Result Performing Organization Address [facility] Co de Phone Number [facility] [address] [place] [phone] * TSH with Reflex to Free T4 (08/25/2025 12:45 PM EDT) [facility] TSH reflex Free T4 0.94 0.32 - 4.0 uIU/mL [facility] 08/25/2025 12:4 5 PM EDT 08/25/2025 12:52 PM EDT us Generic External Data Provider LAB BLOOD ORDERAB LES Final Result Performing Organization Address [facility] de Phone Number [facility] [address] [place] [phone] * (ABNORMAL) Magnesium (08/25/2025 12:45 PM EDT) Pathologist [facility] Magnesium 1.4(LL) 1.6 - 2.6 mg/dL [facility] Comment:Critical value for M AGS: Results called to and read backby: DANIE Person calling: DALLIN Date: 08/25/25 Time:1320 08/25/2025 12:4 5 PM EDT 08/25/2025 12:52 PM EDT Generic External Data Provider LAB BLOOD ORDERAB LES Final Result Performing Organization Address [facility] de Phone Number [facility] [address] [place] [phone] * (ABNORMAL) Hepatic Function Panel (08/25/2025 12:45 PM EDT) Pathologist [facility] Bilirubin, Total 0.3 0.0 - 1.0 mg/dL [facility] Bilirubin, Direct 0.1 0.0 - 0.5 mg/dL [facility] Aspartate Amino Transferase 21 5 - 31 U/L [facility] Alanine Aminotransferase 18 0 - 31 U/L [facility] Total Protein 7.1 6.5 - 8.0 g/dL [facility] Albumin Level 4.3 3.5 - 5.0 g/dL [facility] Alkaline Phosphatase 129(H) 39 - 117 U/L [facility] 08/25/2025 12:4 5 PM EDT 08/25/2025 12:52 PM EDT Generic External Data Provider LAB BLOOD ORDERAB LES Final Result Performing Organization Address [facility]/ZIP Co de Phone Number [facility] [address] [place] [address] [phone] * (ABNORMAL) Basic Metabolic Panel (08/25/2025 12:45 PM EDT) Sodium 141 135 - 145 mmol/L [facility] Potassium 3.9 3.3 - 5.1 mmol/L [facility] Chloride 107 96 - 108 mmol/L [facility] Carbon Dioxide 25 22 - 29 mmol/L [facility] Anion Gap 13 12 - 20 [facility] Urea Nitrogen (BUN) 19(H) 9 - 16 mg/dL [facility] Creatinine, Serum 0.89 0.5 - 1.4 mg/dL [facility] Creatinine Clr Calc Pharmacy 85.7 [facility] Comment:Provided height and weight: 170.18 cm,89.176 kg.eGFR (calculated from the MDRD study equation) and eCrCl(calculated from the Cockcroft-Gault equation) are based ondifferent parameters and may not yield comparable results.If eCrCl result is absurd, please check patient'sheight/weight. Estimated Glomerular Filt Rate >60 [facility] Comment:Chronic Kidney Disea se: Estimated GFR < 60 mL/min/1.13t9Loybcn Kidney Disease: Estimated GFR < 15 mL/min/1.73m2 Glucose 154(H) 60 - 115 mg/dL [facility] Calcium 9.2 8.4 - 10.2 mg/dL [facility] 08/25/2025 12:4 5 PM EDT 08/25/2025 12:52 PM EDT us Generic External Data Provider LAB BLOOD ORDERAB LES Final Result Performing Organization Address City/[facility]/ZIP Co de Phone Number [facility] [address] [place] [phone] [phone] * Hematoxylin and Eosin Stain (07/27/2025 10:31 AM EDT) 07/27/2025 10:3 1 AM EDT 07/27/2025 11:18 AM EDT [facility] - 07/29/2025 10:20 AM EDT ----- ------- Name: Azra Cast Age/Sex: 49/F : 1975 Unit#: [id number] Attend Dr: Aaron Pringle MD Re07/27/25 Status: [facility] Location: [facility] Disch: ----- ------- SPEC : [id number] RECD: 07/27/25-1117 STATUS: KVNGMelquiades NATHALY NUM: [id number] MAYA: 07/27/25-1031 [facility] [address]: Aaron Pringle MD ENTERED: 07/27/25-1142 SP TYPE: Surgical OTHR DR: Shereen Latham MD ORDERED: HE Stain/2, Gross Micro L5/2, Cytokeratin/2, IHC Diagnosis A. Lymph node, sentinel #1, excision: One lymph node with isolated tumor cells (highlighted by leary-cytokeratin) (see comment). B. Additional axillary tissue, excision: Benign adipose tissue; no lymph nodes found. COMMENT: Note is made of the patient's recent breast lumpectomy ([id number]). The final pathologic stage is pT1bN0(i+). Clinical History Pre-Op Dx: Malignant neoplasm of unspecified site Post-Op Dx: Malignant neoplasm of left breast Microscopic Description Microscopic sections reviewed. The immunostain for leary-cytokeratin highlights isolated tumor cells in one sentinel lymph node in part A. Material Received A. Moyers node #1 - 1982 B. Additional axillary tissue Gross Description Received in 2 parts. A. Received in formalin labeled sentinel node#1 -1982 is an oval mass of yellow adipose [...] and 3 pieces in cassette B 5. ([facility]) Special stains ordered and performed: Immunostain for leary-cytokeratin on A1 and A2. CONTINUED ON NEXT PAGE ----- ------- Name: Azra Cast Age/Sex: 49/F : 1975 Unit#: [id number] Attend Dr: Aaron Pringle MD Re07/27/25 Status: [facility] Location: [facility] Disch: ----- ------- SPEC : [id number] RECD: 07/27/25 STATUS: CRAIG ANDERSEN NUM: [id number] MAYA: 07/27/[address] [facility] [address]: Aaron Pringle MD ENTERED: 07/27/25 SP TYPE: Surgical OTHR DR: Shereen Latham MD ORDERED: HE Stain/2, Gross Micro L5/2, Cytokeratin/2, IHC IHC S/NG Disclaimer NOTE: Unless otherwise stated, all tissue is formalin-fixed and paraffin-embedded. Some or all of the immunohistochemical tests reported herein may have been developed and their performance characteristics determined by [facility]. They have not been cleared or approved by the U.S. Food and Drug Administration (FDA). However, the FDA has determined that such clearance or approval is not necessary. This laboratory is certified under the Clinical Laboratory Improvement Amendments of 1988 (CLIA) as qualified to perform high complexity clinical laboratory testing. Copies To: Shereen Latham MD [address] [phone] Aaron Pringle MD [facility] [address] [place] [phone] ----- ------- Signed (signature on file) Xiomara Rowan MD 07/29/25 1020 ----- ------- END OF REPORT us Generic External Data Provider LAB BLOOD ORDERAB LES Final Result [facility] [address] [place] [phone] * NM SENTINEL NODE W IMAGING (07/27/2025 7:47 AM EDT) Anatomical Region Laterality Modality Nuclear Medicine 07/27/2025 7:47 AM EDT Narrative 07/27/2025 11:07 AM EDT [address] [address] Nuclear Medicine Report Signed Patient: Azra Cast MR#: [id number] : 1975 Acct:[id number] Age/Sex: 49 / F ADM Date: 07/27/25 Loc: [facility] Attending Dr: Aaron Pringle MD Ordering Physician: Aaron Pringle MD Date of Service: 07/27/25 Procedure(s): NM sentinel node w imaging Accession Number(s): [id number] cc: Shereen Latham MD; Aaron Pringle MD [...] 07/27/25 1104 DD/ 0747 TD/TT: 07/27/25 0910 Swimming Coach Or Instructor: [facility] Procedure Note Donotuseinterpreter, Image - 07/27/[address] [address] Nuclear Medicine Report Signed Patient: Maged Cast#: [id number] : 1975Acct:[id number] Age/Sex: 49 / FADM Date: 07/27/25 Loc: [facility] Attending Dr: Aaron Pringle MD Ordering Physician: Aaron Pringle MD Date of Service: 07/27/25 Procedure(s): NM sentinel node w imaging Accession Number(s): [id number] cc: Shereen Latham MD; Aaron Pringle MD [...] 07/27/25 1104 DD/ 0747 TD/TT: 07/27/25 0910 Swimming Coach Or Instructor: FARIB[facility] External Provider IMG NM PROCEDURES Final Result * Referral to Obstetrics / Gynecology (07/24/2025) Shereen Latham MD OUTPATIENT REFERRAL ORDERA BLES Final Result * XR Hand 3+Views Bilateral (07/20/2025 2:25 PM EDT) Anatomical Region Laterality Modality Upper Extremities, Hand Bilateral Radiogra phic Imaging 07/20/2025 2:25 PM EDT Narrative 07/20/2025 2:41 PM EDT [address] [address] XRay Report Signed Patient: Azra Cast MR#: [id number] : 1975 Acct:[id number] Age/Sex: 49 / F ADM Date: 07/20/25 Loc: [facility] Attending Dr: Shereen Latham MD Ordering Physician: Junie Padron MD Date of Service: 07/20/25 Procedure(s): XR Hand Bilat min 3v Accession Number(s): [id number] cc: Shereen Latham MD; Junie Padron MD [...] Garcia MD in OV> 07/20/25 1438 DD/ TD/TT: 07/20/251426 Swimming Coach Or Instructor: Procedure Note Donotleonater, Image - 07/20/[address] [address] XRay Report Signed Patient: Maged Cast#: [id number] : 1975Acct:[id number] Age/Sex: 49 / FADM Date: 07/20/25 Loc: [facility] Attending Dr: Shereen Latham MD Ordering Physician: Junie Padron MD Date of Service: 07/20/25 Procedure(s): XR Hand Bilat min 3v Accession Number(s): [id number] cc: Shereen Latham MD; Junie Padron MD [...] OV> 07/20/25 1438 DD/ 1425 TD/TT: 07/20/251426 Swimming Coach Or Instructor: Junie Raygoza MD IMG XR PROCEDURES Final Result * (ABNORMAL) Sed Rate by Modified Souravren (07/20/2025 1:55 PM EDT) Erythrocyte Sedimentation Rate 34(H) 0 - 20 MM/HR [facility] Comment:Patients with polycy themia and many hemoglobin abnormalitiesmay have depressed sed rates whereas patients with anemiamay have elevated sed rates. Blood Venous blood specimen / Unknown 07/20/2025 1:55 PM EDT 07/20/2025 4:03 PM EDT us Junie Raygoza MD LAB BLOOD ORDERAB LES Final Result Performing Organization Address [facility] Co de Phone Number [facility] [address] [place] [phone] * (ABNORMAL) C-reactive Protein (07/20/2025 1:55 PM EDT) C Reactive Protein 2.46(H) < or = 0.50 mg/dL [facility] Blood Venous blood specimen / Unknown 07/20/2025 1:55 PM EDT 07/20/2025 4:46 PM EDT us Junie Raygoza MD LAB BLOOD ORDERAB LES Final Result Performing Organization Address [facility] Co de Phone Number [facility] [address] [place] [phone] * Uric acid (07/20/2025 1:55 PM EDT) Uric Acid 5.7 2.4 - 5.7 mg/dL [facility] Blood Venous blood specimen / Unknown 07/20/2025 1:55 PM EDT 07/20/2025 4:46 PM EDT us Junie Raygoza MD LAB BLOOD ORDERAB LES Final Result Performing Organization Address [facility] Co de Phone Number [facility] [address] [place] [phone] * Gross and Microscopic Level 5 (06/28/2025 10:55 AM EDT) 06/28/2025 10:5 5 AM EDT 06/28/2025 11:08 AM EDT Narrative [facility] - 07/05/2025 2:23 PM EDT ----- ------- Name: Azra Cast Age/Sex: 49/F : 1975 Unit#: [id number] Attend Dr: Aaron Pringle MD Re06/28/25 Status: [facility] Location: [facility] Disch: ----- ------- SPEC : [id number] RECD: 06/28/25-1108 STATUS: CRAIG NATHALY NUM: [id number] MAYA: 06/28/25-[address] [facility] [address]: Aaron Pringle MD ENTERED: 06/28/25-1111 SP TYPE: Surgical OTHR DR: Shereen Latham MD ORDERED: Gross Micro L5, ER, AK, IOC, IHC, Add. immunos, IHC ER/AK/Her2N/4, Ki-67, p63, SMM, [id number] Diagnosis Breast, left, lumpectomy: - Invasive ductal [...] from posterior Lymph nodes Number examined: 0 Moyers nodes: 0 Axillary nodes: 0 CONTINUED ON NEXT PAGE ----- ------- Name: Azra Cast Age/Sex: 49/F : 1975 Unit#: [id number] Attend Dr: Aaron Pringle MD Re06/28/25 Status: [facility] Location: [facility] Disch: ----- ------- SPEC : [id number] RECD: 06/28/25-1108 STATUS: CRAIG ANDERSEN NUM: [id number] MAYA: 06/28/25-10[address] [facility] [address]: Aaron Pringle MD ENTERED: 06/28/25-1110 SP TYPE: Surgical OTHR DR: Shereen Latham MD ORDERED: Gross Micro L5, ER, AK, IOC, IHC, Add. immunos, IHC ER/AK/Her2N/4, Ki-67, p63, SMM, [id number] Diagnosis (Continued) Number involved: N/A With macrometastases: N/A With micrometastases: N/A With isolated tumor cells: N/A Extranodal extension: N/A Size of largest met. deposit: N/A Treatment effect Breast: Not identified Lymph nodes: Not identified TNM: pT1b NX Ancillary studies: ER positive, AK positive, HER2 negative (0), low proliferation Clinical [...] Name: Azra Cast Age/Sex: 49/F : 1975 Located Within [facility]#: [id number] Unit#: [id number] Attend Dr: Aaron Pringle MD Re06/28/25 Status: [facility] Location: [facility] Disch: ----- ------- SPEC : [id number] RECD: 06/28/25-1108 STATUS: CRAIG ANDERSEN NUM: [id number] MAYA: 06/28/25-[address] [facility] [address]: Aaron Pringle MD ENTERED: 06/28/25-1111 SP TYPE: Surgical OTHR DR: Shereen Latham MD ORDERED: Gross Micro L5, ER, AK, IOC, IHC, Add. immunos, IHC ER/AK/Her2N/4, Ki-67, p63, SMM, CLA3HMT Gross Description (Continued) fatty parenchyma is otherwise unremarkable without additional discrete abnormality. Carpenter sections to include entire area of [...] Envision+ Dual Link System-HRP. Progesterone receptor: Clone SmQ077; Invision.com Mach 4 detection system. Her-2/perez immunohistochemistry performed in accordance with ASCO/CAP recommendations (2007) and update (2013). Hercep Test Detection system: Polymer type Scoring criteria: For ER/AK and Her-2/perez: All internal (if present) and external controls react appropriately. CONTINUED ON NEXT PAGE ----- ------- Name: SegunAzra Age/Sex: 49/F : 1975 Unit#: [id number] Attend Dr: Aaron Pringle MD Re06/28/25 Status: [facility] Location: [facility] Disch: ----- ------- SPEC : [id number] RECD: 06/28/25-110 STATUS: CRAIG ANDERSEN NUM: [id number] MAYA: 06/28/25-[address] [facility] [address]: Aaron Pringle MD ENTERED: 06/28/25-1111 SP TYPE: Surgical OTHR DR: Shereen Latham MD ORDERED: Gross Micro L5, ER, AK, IOC, IHC, Add. immunos, IHC ER/AK/Her2N/4, Ki-67, p63, SMM, [id number] Gross Description (Continued) ER and AK immunostains are scored as Positive (> 10% [...] of 1+ or greater is positive. Vernon AC, Margot VASQUEZ, et al. Human Epidermal Growth Factor Receptor 2 Testing in Breast Cancer: ASCO/CAP Clinical Practice Guideline Focus Update. Arch of Pathol Lab Med, 142, 2018: 3028-8990. Marce KH, Margot VASQUEZ, et al. Estrogen and Progesterone Receptor Testing in Breast Cancer: ASCO/CAP Guideline Update. Arch of Pathol Lab Med, 144 2020: 545-563. Thanh N, Cristel P, et al. Adjuvant abemaciclib combined with endocrine therapy for high- risk early breast cancer: updated efficacy and Ki-67 analysis from the monarchE study. Jennie Oncol. 2020;32(12):6463-5788. This case was reviewed intradepartmentally; results were communicated to Dr. Pringle on 07/05/2025. Special studies ordered and performed: Immunostains for ER, AK, HER2, Ki 67, p63 and smooth muscle myosin IHC S/NG Disclaimer NOTE: Unless otherwise stated, all tissue is formalin-fixed and paraffin-embedded. Some or all of the immunohistochemical tests reported herein may have been developed and their performance characteristics determined by [facility]. They have not been cleared [...] Azra Cast Age/Sex: 49/F : 1975 Unit#: [id number] Attend Dr: Aaron Pringle MD Re06/28/25 Status: [facility] Location: [facility] Disch: ----- ------- SPEC : [id number] RECD: 06/28/25-1107 STATUS: CRAIG ANDERSEN NUM: [id number] MAYA: 06/28/25-[address] [facility] [address]: Aaron Pringle MD ENTERED: 06/28/25-1110 SP TYPE: Surgical OTHR DR: Shereen Latham MD ORDERED: Gross Micro L5, ER, AK, IOC, IHC, Add. immunos, IHC ER/AK/Her2N/4, Ki-67, p63, SMM, [id number] Copies To: Shereen Latham MD [address] [phone] Aaron Pringle MD [facility] [address] [place] [phone] ----- ------- Signed (signature on file) Beck Whatley MD 07/05/25 1423 ----- ------- END OF REPORT us Generic External Data Provider LAB BLOOD ORDERAB LES Final Result [facility] [address] [place] [phone] * BI MM SURGICAL SPECIMEN (06/28/2025 10:13 AM EDT) Anatomical Region Laterality Modality Breast Bilateral Mammography 06/28/2025 10:1 3 AM EDT Narrative 06/28/2025 11:09 AM EDT [address] [address] [id number] Mammography Report Signed Patient: Azra Cast MR#: [id number] : 1975 Acct:[id number] Age/Sex: 49 / F ADM Date: 06/28/25 Loc: [facility] Attending Dr: Aaron Pringle MD Ordering Physician: Aaron Pringle MD Results: Date of Service: 06/28/25 Follow Up: Procedure(s): MM surgical specimen Accession Number(s): [id number] cc: Shereen Latham MD; Aaron Pringle MD Single left breast specimen radiograph demonstrates a tag with the barbell clip and a second tag with a top hat clip. Electronically signed by: Cara Rodriges DO 06/28/2025 11:07 AM EDT RP Dictated By: Cara Rordiges DO Signed By: <Electronically signed by Cara Rodriges DO in OV> 06/28/25 1107 DD/ 1013 TD/TT: 06/28/25 1104 Swimming Coach Or Instructor: Procedure Note Donotuseinterpreter, Image - 06/28/[address] [address] [id number] Mammography Report Signed Patient: Maged Cast#: [id number] : 1975Acct:[id number] Age/Sex: 49 / FADM Date: 06/28/25 Loc: [facility] Attending Dr: Aaron Pringle MD Ordering Physician: [facility] Date of Service: 06/28/25Follow Up: Procedure(s): MM surgical specimen Accession Number(s): [id number] cc: Shereen Latham MD; Aaron Pringle MD Single left breast specimen radiograph demonstrates a tag with the barbell clip and a second tag with a top hat clip. Electronically signed by: Cara Rodriges DO 06/28/2025 11:07 AM EDT RP Dictated By: Cara Rodriges DO Signed By: <Electronically signed by Cara Rodriges DO in OV> 06/28/25 1107 DD/ 1013 TD/TT: 06/28/25 1104 Swimming Coach Or Instructor: [facility] External Provider IMG BI PROCEDURES Edited Result - Final * BI Mammogram Diagnostic Tomosynthesis Left (06/01/2025 11:25 AM EDT) Anatomical Region Laterality Modality Breast Left Mammography 06/01/2025 11:2 5 AM EDT Narrative 06/01/2025 1:24 PM EDT [address] [address] [id number] Mammography Report Signed with Kaylie Patient: Azra Cast MR#: [id number] : 1975 Acct:[id number] Age/Sex: 49 / F ADM Date: 06/01/25 Loc: [facility].MRI Attending Dr: Aaron Pringle MD Ordering Physician: Aaron Pringle MD Results: 1Nega tive Date of Service: 06/01/25 Follow Up: 1 Year From [facility] ina Mammogram Procedure(s): MM tomosynthesis diagnostic LT Accession Number(s): [id number] cc: Shereen Latham MD; Aaron Pringle MD [...] and with use of Gadavist gadolinium contrast. [employer] introducer localization system is used with grid. LESION: Retroareolar region middle depth. LOCAL ANESTHESIA: 6 mL 1% lidocaine; 10 mL 1% lidocaine with epinephrine. NEEDLE: Gertrude 9-gauge vacuum assisted core biopsy device. APPROACH: [...] 06/01/25 1321 DD/ 1125 TD/TT: 06/01/25 1150 Swimming Coach Or Instructor: Procedure Note Donotuseinterpreter, Image - 06/07/[address] [address] [id number] Mammography Report Signed with Addenda Patient: Maged Cast#: [id number] : 1975Acct:[id number] Age/Sex: 49 / FADM Date: 06/01/25 Loc: [facility].MRI Attending Dr: Aaron Pringle MD Ordering Physician: Aaron Pringle MDResults: 1Nega tive Date of Service: 06/01/25Follow Up: 1 Year From Orig inal Mammogram Procedure(s): MM tomosynthesis diagnostic LT Accession Number(s): [id number] cc: Shereen Latham MD; Aaron Pringle MD [...] and with use of Gadavist gadolinium contrast. [employer] introducer localization system is used with grid. LESION: Retroareolar region middle depth. LOCAL ANESTHESIA: 6 mL 1% lidocaine; 10 mL 1% lidocaine with epinephrine. NEEDLE: [employer] 9-gauge vacuum assisted core biopsy device. APPROACH: [...] 06/01/25 1321 DD/ 1125 TD/TT: 06/01/25 1150 Swimming Coach Or Instructor: [facility] External Provider IMG BI PROCEDURES Edited Result - Final * (ABNORMAL) Lipid Panel, Standard (12/29/2024 10:53 AM EST) Triglycerides 192(H) <150 mg/dL [facility] Comment:Desirable Triglyceri de: less than 150 mg/dLBorderline High Triglyceride 150-199 mg/dLHigh Triglyceride: 200-499 mg/dLVery High Triglyceride: greater than or equal to 5OO mg/dL Cholesterol 197 <200 mg/dL [facility] Comment:Desirable Cholestero l: less than 200 mg/dLBorderline High Cholesterol: 200-239 mg/dLHigh Cholesterol: greater than 239 mg/dL LDL Cholesterol Calculated 111(H) <100 mg/dL [facility] Comment:Desirable LDL: less than 100 mg/dLNear Optimal/Above Optimal LDL: 110- 129 mg/dLBorderline High LDL: 130-159 mg/dLHigh LDL: 160-189 mg/dLVery High LDL: greater than or equal to 190 mg/dL HDL Cholesterol 48 >40 mg/dL [facility] Comment:Desirable HDL: great er than 40 mg/dL Note: This HDL assay may give artificially low results in patients with liver disease. Blood Venous blood specimen / Unknown 12/29/2024 10:53 AM EST 12/29/2024 1:06 PM EST Shereen Latham MD LAB BLOOD ORDERABLES Final Result [facility] [address] [place] [address] [phone] * (ABNORMAL) Colonoscopy (07/11/2024) [facility] Colonoscopy Abnormal( A) Normal Comment:Herberth Stokes MD tubular adenoma x 3 Herberth Stokes MD HEALTH MAINTENANCE Final Result * Hepatitis Panel, General (06/16/2024 8:22 AM EDT) [facility] Hepatitis A IgM Nonreactive Nonreactive [facility] [...] Latham MD LAB BLOOD ORDERABLES Final Result [facility] [address] [place] [phone] * HIV-1/2 Antigen and Antibodies, Fourth Generation, with Reflexes (02/24/2024 8:47 AM EDT) [facility] HIV AB/AG Nonreactive Nonreactive [facility] Comment:HIV-1 p24 Ag and/or HIV-1/HIV-2 Ab not detected.A test result that is nonreactive does not exclude thepossibility of exposure to or infection with HIV-1 and/orHIV-2. Nonreactive results in this assay for individualswith prior exposure to HIV-1 and/or HIV-2 may be due toantigen and antibody levels that are below the limit ofdetection of this assay.[employer] HIV Ag/Ab Combo assay result andsupplemental assay results should be interpreted inconjunction with the patient's clinical presentation,history and other laboratory results. If the results areinconsistent with clinical evidence, additional testing issuggested to confirm the result. Blood Venous blood specimen / Unknown 02/24/2024 8:47 AM EDT 02/24/2024 11:22 AM EDT [facility] LAB BLOOD ORDERABLES Final Resul t [facility] [address] [place] [phone] * (ABNORMAL) Cologuard?? colon cancer screening (08/27/2023 11:24 AM EDT) Cologuard Result Positive( A) Negative 09/05/2023 10:16 PM EDT [facility] (CLIA #:[id number]) Comment: POSITIVE TEST RESULT. A positive Cologuard [...] (Felix Mccoy al, N Engl J Med 2014;370(14):6238-1790.) Cologuard may produce a false negative or false positive result (no colorectal cancer or precancerous polyp present at colonoscopy follow up). A negative Cologuard test result does not guarantee the absence of CRC or advanced adenoma (pre-cancer). The current Cologuard screening interval is every 3 years. ([place] [employer] Society and U.S. Multi-Society Task Force). Cologuard performance data in a 10,000 patient pivotal study using colonoscopy as the reference method can be accessed at the following location: www.WigWag.com/results. Additional description of the Cologuard test process, warnings and precautions can be found at [email or web address] [email or web address]. Stool specimen (specimen) 08/27/2023 11:24 AM EDT 08/29/2023 6:48 AM EDT Shereen Latham MD LAB MOLECULAR DIAGNOSTICS ORDERABLES Final Result [facility] (CLIA #:[id number]) [address] [place] [address], * HPV mRNA E6/E7 (08/12/2018 10:57 AM EDT) HPV mRNA E6/E7 Not Detected NOT DETECTED [facility] Comment: This test was performed using the APTIMA(R) HPV Assay ([employer] This assay detects E6/E7 viral messenger RNA (mRNA) from 14 high-risk HPV types (16,18,31,33,35,39,45,51, 52,56,58,59,66,68). For additional information please refer to: http://education.PulpWorks/faq/DFG230s8 (This link is being provided for informational/ educational purposes only.) The analytical performance characteristics of this assay have been determined by [employer] [place], [place]. The modifications have not been cleared or approved by the FDA. This assay has been validated pursuant to the CLIA regulations and is used for clinical purposes. Test Performed by [facility] [place] [place], [address] [place] [address] Dwaine Morelos M.D., Ph.D., Director of Laboratories , CLIA [id number] Please note: Effective 07/14/2016, HPV testing will be performed using [employer]'s APTIMA test which targets mRNA. Detecting mRNA instead of DNA, as in older methods, offers significant improvements in specificity. 08/12/2018 10:5 7 AM EDT us Shereen Ltaham MD HISTORICAL/NON ORDERABLE L ABS Final Result [facility] [place] [address], from Last 3 Months or Most Recently Relevant to Health Maintenance Insurance [facility] C3 [facility] MED[facility] STAND ADULT Advance Directives Documents on File Type Date Recorded Patient Carpenter Expl anation Advance Directives and Living Will 07/05/2024 11:59 AM Health Care Proxy Care Teams Logging Assistant Relationship Specialty Start Date End Date Con[place], MD Shereen [address] [place] [address] PCP - General Family Medicine 11/02/18 Sury Benitez [address] [place] [address] Dr [facility] [[email or web address] [address] [place] [address] Pulmonary Disease 09/27/24 Nirali Madrid OD [address] [place] [phone] Optometry 10/27/24 Li Grande MD [address] [place] [address] Hematology and Oncology 10/27/24 Anselmo Gates MD [address] [place] [address] Orthopaedic Surgery 10/27/24 Margaret Holman [address] [place] [address] Cardiology 10/27/24 Herberth Stokes MD [address] [place] [address] Gastroenterology 10/27/24 Hilton Palacios MD [address] [place] [address], [address] [place] [address] Neurology 02/06/25 Aaron Pringle MD [address] [facility] [address] [place] [address] General Surgery 03/07/25 Ronda Rodríguez [address] [place] [address] [address] [place] [address] Obstetrics and Gynecology 08/02/25 Pily Delaney [employer] Engineer[employer]aver Hand 07/22/24 Elie Vicky [facility] Psychology 12/29/24
--- OUTSIDE RECORDS SUMMARY | 2025-09-15 20:26 | XMS_ITS | Clinical Summary ---
Author Organization [facility] Address [address] [place] [address] Phone Care Team Providers Care [employer] Jig Grinder Name Role Phone Shereen Latham MD Primary Care Provider [phone]- [phone] Allergies Active Allergy Reactions Criticality Noted Date [...] being evaluated for tachycardia and has a environmental monitoring specialist in place. I recommended a [...] 04/21/24 with uric acid 7.9 -Seen by windows software engineer Dr. Bernstein 05/11/24 or evaluation of acute gout affecting left foot. -Pt admitted 07/25/24-07/2524 for swelling, pain, and warmth in the right knee. Patient had a low fever (100.3 F) and elevated WBC (03661 cells/uL), CRP, and ESR. Orthopedic surgery consulted [...] daily for prophylaxis -Seen by Dr. Clarke windows software engineer 04/19/25 Continue allopurinol 200 mg daily, plan to repeat acid level before next visit and increase allopurinol titrate allopurinol if needed to reach serum uric acid level <6 mg/dL(2020 [place] [employer] guideline for the management [...] failure with reduced EF during admission to [facility] 06/22/24. - She was started on [...] effusion and indeterminate diastolic function -Seen by [facility]iology 08/01/24 : exercise nuclear stress [...] again until 07/2024. Last echo 06/23/2024 during [facility] heart failure admission, showed EF 55-60%, small [...] for transfusion - Iron infusions ordered by Wind Turbine Design Engineer DR. Grande - She recieved two sessions [...] psychological clearance. Stage 3 chronic kidney disease ([facility] V24, [facility] V28) 07/20/2023 Pain in both feet 07/14/2023 [...] had ultrasound sound for abdominal pain at [facility] revealing diffusely echogenic parenchyma with focal sparing [...] spironolactone (Aldactone) 25 MG tablet 11/09/24 -06/20/25 gleason operator held spironolactone Alcohol use disorder, modera te, dependence (CMS/HCC V24, CMS/HCC V28) 12/12/2021 Overview (08/25/2025): Longstanding, severe olesya drinking with hx admissions and withdrawal. Care complicated by difficulty accepting/comprehending risk. We have many times discussed risks including liver damage, liver failure and the risk of dying if she continues to drink. At times she has been referred to [facility] for [facility] and Recovery but has [...] subsequently declined -Admitted for alcohol detox at [facility] 04/09/24 -reports she is currently not [...] with sentinel node bx by Dr. [facility] -Adriamycin/Cytoxan based chemotherapy started Oct, completed [...] being evaluated for tachycardia and has a environmental monitoring specialist in place. I recommended a [...] Dr. 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 Per Dr. Krish Loomis's note from [facility] SCH[facility]ULE [facility], pt was due for repeat colposcopy in 2011. -Total Vaginal Hysterectomy 08/27/17 ('with MONICA 2 pathology and negative resection margins'). Per note dated 11/27/17 Dr. Reyes; 'patient to discontinue PAP screening'. -Vaginal pap NILM HPV negative 08/2018, per not no further paps indicated Severe episode of recurrent major depressive disorder, with psychotic features ([facility] V24, [facility] V28) 04/19/2014 Overview (08/25/2025): -has therapist in [...] as pharmacomtherapy, [facility] smoking cessation group, and [facility] pharmacy smoking cessation clinic Discussed [...] Encounters Date Type Department Care Team Description 09/15/2025 8:09 AM EST Hospital Encounter [facility] Radiation Oncology [address] [place] [phone] 09/13/2025 1:00 PM EST Hospital Encounter [facility] Radiation Oncology [address] [place] [phone] Pal Ureña MD Malignant neoplasm of upper-outer quadrant of left breast in female, estrogen receptor positive (CMS/HCC V24, CMS/HCC V28) (Primary Dx) 09/13/2025 11:55 AM EST Hospital Encounter [facility] Radiation Oncology [address] [place] [phone] Malignant neoplasm of upper-outer quadrant of left breast in female, estrogen receptor positive (CMS/HCC V24, CMS/HCC V28) (Primary Dx) 09/06/2025 Telephone [facility] Hematology Oncology [address] [place] [phone] Mouna Tobin NE 08/31/2025 11:56 AM EDT - 08/31/2025 11:59 PM EDT Hospital Encounter [facility] Radiation Oncology [address] [place] [phone] Pal Ureña MD Malignant neoplasm of upper-outer quadrant of left breast in female, estrogen receptor positive (CMS/HCC V24, CMS/HCC V28) (Primary Dx) Discharge Disposition: Home or Self Care 08/31/2025 11:56 AM EDT - 08/31/2025 11:59 PM EDT Hospital Encounter [facility] Radiation Oncology [address] [place] [phone] Discharge Disposition: Home or Self Care 08/24/2025 1:00 PM EDT Consult Orthopedic Surgery - [place] [address] [facility] [address] [place] [phone] Antony Garrett DPM Pain in both feet (Primary Dx); Lumbosacral radiculopathy; Metatarsalgia of left foot; Ingrown right big toenail 08/24/2025 Telephone [facility] Radiation Oncology [address] [place] [phone] Micheline Sosa NE 08/13/2025 2:30 PM EDT - 08/13/2025 7:19 PM EDT Emergency [facility] Emergency [address] [place] [phone] Lawrence Han MD Chest pain, unspecified type (Primary Dx); Shortness of breath Discharge Disposition: Left Against Medical Advice 08/10/2025 Telephone [facility] Radiation Oncology [address] [place] [phone] Micheline Sosa NE from Last 3 Months Medical History Medical History Date Comments CHF (congestive heart failure) (CMS/HCC V24, CMS /HCC V28) Hypertension Anxiety Depression Social History Tobacco [...] Info) Description 09/20/2025 2:30 PM EST Appointment [facility] Radiation Oncology [address] [place] [phone] 09/20/2025 2:45 PM EST Appointment [facility] Radiation Oncology [address] [place] [phone] Pal Ureña MD [address] [place] [phone] 09/21/2025 2:30 PM EST Appointment [facility] Radiation Oncology [address] [place] [phone] 09/22/2025 2:30 PM EST Appointment [facility] Radiation Oncology [address] [place] [phone] 09/24/2025 10:45 AM EST Appointment [facility] Radiation Oncology [address] [place] [phone] 09/25/2025 2:30 PM EST Appointment [facility] Radiation Oncology [address] [place] [phone] 09/26/2025 2:30 PM EST Appointment [facility] Radiation Oncology [address] [place] [phone] 09/27/2025 2:30 PM EST Appointment [facility] Radiation Oncology [address] [place] [phone] 10/02/2025 2:30 PM EST Appointment [facility] Radiation Oncology [address] [place] [phone] 10/03/2025 1:00 PM EST Appointment [facility] Radiation Oncology [address] [place] [phone] Pal Ureña MD [address] [place] [address] 10/03/2025 2:30 PM EST Appointment [facility] Radiation Oncology [address] [place] [phone] 10/04/2025 2:30 PM EST Appointment [facility] Radiation Oncology [address] [place] [phone] 10/05/2025 2:30 PM EST Appointment [facility] Radiation Oncology [address] [place] [phone] 10/06/2025 2:30 PM EST Appointment [facility] Radiation Oncology [address] [place] [phone] 10/09/2025 2:30 PM EST Appointment [facility] Radiation Oncology [address] [place] [phone] 10/10/2025 2:30 PM EST Appointment [facility] Radiation Oncology [address] [place] [phone] 10/11/2025 2:30 PM EST Appointment [facility] Radiation Oncology [address] [place] [phone] 10/12/2025 2:30 PM EST Appointment [facility] Radiation Oncology [address] [place] [phone] 10/13/2025 2:30 PM EST Appointment [facility] Radiation Oncology [address] [place] [phone] 10/16/2025 2:30 PM EST Appointment [facility] Radiation Oncology [address] [place] [phone] 10/17/2025 2:30 PM EST Appointment [facility] Radiation Oncology [address] [place] [phone] 10/18/2025 2:30 PM EST Appointment [facility] Radiation Oncology [address] [place] [phone] 11/16/2025 2:00 PM EST Procedure visit Orthopedic Surgery - [place] [address] [phone] Antony Garrett, DPM [address] [phone] Health Maintenance Due Date Last Done Comments [...] Results * ECG-Annotated (08/15/2025) us Provider Onbase ECG ORDERABLES Final Result * XR Chest [...] Dictated Date: 08/13/2025 16:27 ET Assigned Physician: BIHN CARRILLO Reviewed and Electronically Signed By: BINH CARRILLO Signed Date: 08/13/2025 16:29 ET Workstation ID: [id number] Transcribed By: Self Edit Transcribed Date: 08/13/2025 [...] Signed Date: 08/13/2025 16:29 ET Workstation ID: [id number] Transcribed By: Self Edit Transcribed Date: 08/13/2025 16:27 ET Lawrence Han MD IMG XR PROCEDURES Final Result * Urinalysis with reflex microscopic (08/13/2025 3:50 PM EDT) Specific [place] Urine 1.017 1.003 - 1.030 LAB URINALYSIS - AUTOMATED METHOD 08/13/2025 4:17 PM [facility] pH, Urine 6.0 5.0 - 8.0 pH LAB URINALYSIS - AUTOMATED METHOD 08/13/2025 4:17 PM [facility] Leukocytes, Urine Negative Negative LAB URINALYSIS - AUTOMATED METHOD 08/13/2025 4:17 PM [facility] Nitrite, Urine Negative Negative LAB URINALYSIS - AUTOMATED METHOD 08/13/2025 4:17 PM [facility] Protein, Urine Negative <=Trace mg/dL LAB URINALYSIS - AUTOMATED METHOD 08/13/2025 4:17 PM [facility] Glucose, Urine Negative Negative mg/dL LAB URINALYSIS - AUTOMATED METHOD 08/13/2025 4:17 PM [facility] Ketones, Urine Negative Negative mg/dL LAB URINALYSIS - AUTOMATED METHOD 08/13/2025 4:17 PM [facility] Urobilinogen, Urine 0.2 0.2 - 1.0 mg/dL LAB URINALYSIS - AUTOMATED METHOD 08/13/2025 4:17 PM [facility] Bilirubin, Urine Negative Negative LAB URINALYSIS - AUTOMATED METHOD 08/13/2025 4:17 PM EDT [facility] Blood, Urine Negative Negative LAB URINALYSIS - AUTOMATED METHOD 08/13/2025 4:17 PM EDT [facility] Urine Urine specimen obtained by clean catch procedure / Unknown Non-blood Collection / Unknown 08/13/2025 3:50 PM EDT 08/13/2025 3:59 PM EDT us Lawrence Han MD LAB URINE ORDERABLES Final Resul t [facility] [address] [place] [address], * (ABNORMAL) Drug abuse screen 8a panel, urine (08/13/2025 3:50 PM EDT) Amphetamine Screen, Ur Negative Negative LAB CHEMISTRY METHOD 4:38 PM [facility] Comment:Certain OTC medicati ons containing ephedrine, phenylephrine, pseudoephedrine and phenylpropanolamine can cause false positive results. Barbiturate Screen, Ur Negative Negative LAB CHEMISTRY METHOD 5 4:38 PM [facility] Benzodiazepine Screen, Ur Negative Negative LAB CHEMISTRY METHOD 5 4:38 PM [facility] Cocaine Screen, Ur Negative Negative LAB CHEMISTRY METHOD 5 4:38 PM T [facility] Opiate Screen, Ur Positive(A ) Negative LAB CHEMISTRY METHOD 5 4:38 PM [facility] Cannabinoid (THC) Screen, Ur Negative Negative LAB CHEMISTRY METHOD 5 4:38 PM [facility] Comment:Specimens from patie nts taking pantoprazole sodium (Protonix) have been shown to produce false positive results. Oxycodone Screen, Ur Positive(A ) Negative LAB CHEMISTRY METHOD 5 4:38 PM [facility] Fentanyl, Ur Negative Negative LAB CHEMISTRY METHOD 4:38 PM EDT [facility] Urine Urine specimen obtained by clean catch procedure / Unknown Non-blood Collection / Unknown 08/13/2025 3:50 PM EDT 08/13/2025 3:59 PM EDT [facility] - 08/13/2025 4:38 PM EDT Assay [...] Organization Address [facility]/ZIP Co de Phone Number [facility] [address] [place] [address], [place] [phone] * Troponin I high sensitivity (08/13/2025 3:43 PM EDT) [facility] High Sensitivity Troponin I 20 <=54 ng/L LAB CHEMISTRY METHOD 08/13/2025 4:42 PM EDT [facility] Blood Venous blood specimen / Unknown Venipuncture / Unknown 08/13/2025 3:43 PM EDT 08/13/2025 3:59 PM EDT [facility] - 08/13/2025 4:42 PM EDT High levels of biotin in samples may falsely decrease hsTroponin values. Use caution when interpreting hsTroponin results in patients taking biotin who exhibit renal impairment (eGFR <60) or in patients taking more than 20 mg/day of biotin. us Lawrence Han MD LAB BLOOD ORDERABLES Final Resul t Performing Organization Address [facility]/ZIP Co de Phone Number [facility] [address] [place] [address], [place] [phone] * (ABNORMAL) CBC auto differential (08/13/2025 3:43 PM EDT) [facility] WBC 10.6 4.8 - 10.8 K/mcL LAB HEMETOLOGY METHOD 08/13/2025 4:08 PM EDT [facility] RBC 3.70(L) 3.80 - 4.80 M/mcL LAB HEMETOLOGY METHOD 08/13/2025 4:08 PM EDT [facility] Hemoglobin 10.6(L) 11.5 - 16.0 g/dL LAB HEMETOLOGY METHOD [facility]13[facility] Hematocrit 33.0(L) 35.0 - 47.0 % LAB HEMETOLOGY METHOD 08/13/2025 4:[facility] MCV 88.7 79.0 - 98.0 FL LAB HEMETOLOGY METHOD 08/13/2025 4:[facility] MCH 28.5 27.0 - 32.0 pcg LAB HEMETOLOGY METHOD 08/13/2025 4:[facility] MCHC 32.1 32.0 - 37.0 g/dL LAB HEMETOLOGY METHOD 08/13/2025 4:[facility] RDW 14.6 11.0 - 15.0 % LAB HEMETOLOGY METHOD 08/13/2025 4:08 PM EDT [facility] Platelets 263 130 - 400 K/mcL LAB HEMETOLOGY METHOD 08/13/2025 4:[facility] MPV 10.7 7.0 - 11.0 FL LAB HEMETOLOGY METHOD 08/13/2025 4:[facility] NRBC 0.0 <1.0 % LAB HEMETOLOGY METHOD 08/13/2025 4:08 PM [facility] NRBC Absolute 0.00 <0.10 K/mcL LAB HEMETOLOGY METHOD 08/13/2025 4:08 PM [facility] Neutrophils Relative 60.6 % LAB HEMETOLOGY METHOD 08/13/2025 4:08 PM [facility] Lymphocytes Relative 29.5 % LAB HEMETOLOGY METHOD 08/13/2025 4:08 PM [facility] Monocytes Relative 6.2 % LAB HEMETOLOGY METHOD 08/13/2025 4:08 PM [facility] Eosinophils Relative 2.8 % LAB HEMETOLOGY METHOD 08/13/2025 4:08 PM [facility] Basophils Relative 0.6 % LAB HEMETOLOGY METHOD 08/13/2025 4:08 PM [facility] Immature Granulocytes Relative 0.3 % LAB HEMETOLOGY METHOD 08/13/2025 4:08 PM [facility] Neutrophils Absolute 6.45 1.50 - 7.00 K/mcL LAB HEMETOLOGY METHOD 08/13/2025 4:08 PM [facility] Lymphocytes Absolute 3.14 1.00 - 5.00 K/mcL LAB HEMETOLOGY METHOD 08/13/2025 4:08 PM [facility] Monocytes Absolute 0.66 0.20 - 1.00 K/mcL LAB HEMETOLOGY METHOD 08/13/2025 4:08 PM [facility] Eosinophils Absolute 0.30 0.00 - 0.50 K/mcL LAB HEMETOLOGY METHOD 08/13/2025 4:08 PM [facility] Basophils Absolute 0.06 0.00 - 0.20 K/mcL LAB HEMETOLOGY METHOD 08/13/2025 4:08 PM [facility] Immature Granulocytes Absolute 0.03 0.00 - 0.03 K/[facility] LAB HEMETOLOGY METHOD 08/13/2025 4:08 PM EDT [facility] Blood Venous blood specimen / Unknown Venipuncture / Unknown 08/13/2025 3:43 PM EDT 08/13/2025 3:58 PM EDT us Lawrence Han MD LAB BLOOD ORDERABLES Final Resul t [facility] [address] [place] [address], [place] [phone] * APTT (08/13/2025 3:43 PM EDT) aPTT 32.6 24.1 - 39.3 sec LAB COAGULATION METHOD 08/13/2025 4:19 PM EDT [facility] Blood Venous blood specimen / Unknown Venipuncture / Unknown 08/13/2025 3:43 PM EDT 08/13/2025 3:58 PM EDT us Lawrence Han MD LAB BLOOD ORDERABLES Final Resul t [facility] [address] [place] [address], [place] [phone] * Protime-INR (08/13/2025 3:43 PM EDT) Protime 11.4 10.6 - 13.9 sec LAB COAGULATION METHOD 08/13/2025 4:19 PM EDT [facility] INR 0.9 LAB COAGULATION METHOD 08/13/2025 4:19 PM EDT [facility] Blood Venous blood specimen / Unknown Venipuncture / Unknown 08/13/2025 3:43 PM EDT 08/13/2025 3:58 PM EDT us Lawrence Han MD LAB BLOOD ORDERABLES Final Resul t Performing Organization Address [facility] Co de Phone Number [facility] [address] [place] [address], [place] [phone] * hCG Qualitative (08/13/2025 3:43 PM EDT) [facility] hCG Qual Negative Negative 08/13/2025 4:46 PM EDT [facility] Blood Venous blood specimen / Unknown Venipuncture / Unknown 08/13/2025 3:43 PM EDT 08/13/2025 3:58 PM EDT us Lawrence Han MD LAB BLOOD ORDERABLES Final Resul t Performing Organization Address [facility] Co de Phone Number [facility] [address] [place] [address], [place] [phone] * B-type natriuretic peptide (08/13/2025 3:43 PM EDT) [facility] BNP 42 <=100 pcg/mL LAB CHEMISTRY METHOD 08/13/2025 4:37 PM EDT [facility] Blood Venous blood specimen / Unknown Venipuncture / Unknown 08/13/2025 3:43 PM EDT 08/13/2025 3:59 PM EDT us Lawrence Han MD LAB BLOOD ORDERABLES Final Resul t Performing Organization Address [facility]/ZIP Co de Phone Number [facility] [address] [place] [address], [place] [phone] * (ABNORMAL) Magnesium (08/13/2025 3:43 PM EDT) [facility] Magnesium 1.4(L) 1.9 - 2.6 mg/dL LAB CHEMISTRY METHOD 08/13/2025 4:35 PM EDT [facility] Blood Venous blood specimen / Unknown Venipuncture / Unknown 08/13/2025 3:43 PM EDT 08/13/2025 3:58 PM EDT us Lawrence Han MD LAB BLOOD ORDERABLES Final Resul t Performing Organization Address [facility]/ZIP Co de Phone Number [facility] [address] [place] [address], [place] [phone] * Lipase (08/13/2025 3:43 PM EDT) [facility] Lipase 42 13 - 75 unit/L LAB CHEMISTRY METHOD 08/13/2025 4:35 PM EDT [facility] Blood Venous blood specimen / Unknown Venipuncture / Unknown 08/13/2025 3:43 PM EDT 08/13/2025 3:58 PM EDT us Lawrence Han MD LAB BLOOD ORDERABLES Final Resul t Performing Organization Address [facility] de Phone Number [facility] [address] [place] [address], [place] [phone] * (ABNORMAL) Venous blood gas (08/13/2025 3:43 PM EDT) Pathologist [facility] pH, Jw 7.44(H) 7.32 - 7.42 pH 08/13/2025 4:01 PM EDT [facility] pCO2, Jw 45 41 - 51 mmHg 08/13/2025 4:01 PM EDT [facility] pO2, Jw 50(H) 25 - 40 mmHg 08/13/2025 4:01 PM EDT [facility] HCO3, Venous 29.1(H) 22.0 - 26.0 mmol/L 08/13/2025 4:01 PM EDT [facility] O2 Sat, Jw 84.5 % 08/13/2025 4:01 PM EDT [facility] Base Excess, Jw 5.7(H) -2.0 - 2.0 mmol/L 08/13/2025 4:01 PM [facility] Blood Venous blood specimen / Unknown Venipuncture / Unknown 08/13/2025 3:43 PM EDT 08/13/2025 3:58 PM EDT us Lawrence Han MD LAB BLOOD ORDERABLES Final Resul t [facility] [address] [place] [address], * (ABNORMAL) Comprehensive metabolic panel (08/13/2025 3:43 PM EDT) Sodium 137 133 - 145 mmol/L LAB CHEMISTRY METHOD 08/13/2025 4:35 PM [facility] Potassium 3.7 3.5 - 5.5 mmol/L LAB CHEMISTRY METHOD 08/13/2025 4:35 PM [facility] Comment:Hemolysis present Chloride 103 96 - 110 mmol/L LAB CHEMISTRY METHOD 08/13/2025 4:35 PM [facility] CO2 27 21 - 32 mmol/L LAB CHEMISTRY METHOD 08/13/2025 4:35 PM [facility] Anion Gap 7 3 - 11 LAB CHEMISTRY METHOD 08/13/2025 4:35 PM [facility] Glucose 123(H) 70 - 100 mg/dL LAB CHEMISTRY METHOD 08/13/2025 4:35 PM [facility] BUN 23 5 - 25 mg/dL LAB CHEMISTRY METHOD 08/13/2025 4:35 PM [facility] Creatinine 0.87 0.50 - 1.10 mg/dL LAB CHEMISTRY METHOD 08/13/2025 4:35 PM [facility] eGFR 81 >=60 mL/min/1. 73m2 LAB CHEMISTRY METHOD 08/13/2025 4:35 PM [facility] Comment:Calculation based on the Chronic Kidney Disease Epidemiology Collaboration (CKD-EPI) equation refit without adjustment for race. BUN/Creatinine Ratio 26.4 LAB CHEMISTRY METHOD 08/13/2025 4:35 PM EDT [facility] Calcium 9.1 8.5 - 10.5 mg/dL LAB CHEMISTRY METHOD 08/13/2025 4:35 PM EDT [facility] AST (SGOT) 40 10 - 42 unit/L LAB CHEMISTRY METHOD 08/13/2025 4:35 PM T [facility] ALT (SGPT) 33 10 - 60 unit/L LAB CHEMISTRY METHOD 08/13/2025 4:35 PM EDT [facility] Alkaline Phosphatase 144(H) 42 - 121 unit/L LAB CHEMISTRY METHOD 08/13/2025 4:35 PM EDT [facility] Total Protein 6.8 6.0 - 8.0 g/dL LAB CHEMISTRY METHOD 08/13/2025 4:35 PM EDT [facility] Albumin 3.4 3.2 - 5.0 g/dL LAB CHEMISTRY METHOD 08/13/2025 4:35 PM [facility] Total Bilirubin 0.4 0.0 - 1.4 mg/dL LAB CHEMISTRY METHOD 08/13/2025 4:35 PM T [facility] Blood Venous blood specimen / Unknown Venipuncture / Unknown 08/13/2025 3:43 PM EDT 08/13/2025 3:58 PM EDT us Lawrence Han MD LAB BLOOD ORDERABLES Final Resul t [facility] [address] [place] [address], * ECG 12 lead (08/13/2025 3:06 PM EDT) Ventricular Rate ECG 96 BPM GEMUSE Atrial Rate 96 BPM GEMUSE P-R Interval 200 ms GEMUSE QRS Duration 82 ms GEMUSE Q-T Interval 390 ms GEMUSE QTc 492 ms GEMUSE P Wave [place] 87 degrees GEMUSE R [place] 7 degrees GEMUSE T [place] 63 degrees GEMUSE ECG Interpretation Normal sinus rhythm Nonspecific T wave abnormality Prolonged QT Abnormal ECG When compared with ECG of 28-MAY-2019 01:04, Nonspecific T wave abnormality now evident in Lateral leads Confirmed by Radha PICKENS JAMES ([id number]) on 08/14/2025 12:53:07 PM GEMUSE 08/13/2025 3:06 PM EDT 08/14/2025 12:53 PM EDT us Lawrence Han MD ECG ORDERABLES Final Result GEMUSE from Last 3 Months Insurance MEDICAID - [place] Care Teams [employer] Relationship Specialty Start Date End Date [place]on, MD Shereen [address] [facility] [address] [place] [address] PCP - General 01/13/1996
--- OUTSIDE RECORDS SUMMARY | 2025-09-15 20:26 | XMS_ITS | Encounter Summary ---
Author Organization [employer] Address 75 [facility] 7 [place] [address] Care Team Providers Care Dewaterer Operator Name Role Phone Shereen Latham MD Primary Care Provider [phone] Nupur Bullock PharmD Unavailable [phone] Sury Benitez Unavailable [phone] Julius, Nirali OD Unavailable Li Grande MD Unavailable [phone] Anselmo Gates MD Unavailable Margaret Holman Unavailable Herberth Stokes MD Unavailable [phone] Hilton Palacios MD Unavailable Aaron Pringle MD Unavailable [phone] Lori James Unavailable Neelima Raygoza Unavailable Ronda Rodríguez Unavailable Neelima Raygoza Unavailable Neelima Raygoza Unavailable Encounter Details Date Type Department Care Team (Late st Contact Info) Description 10/22/2023 Orders Only [facility] MEDICINE [address] [place] [address] Shereen Latham MD 230 [place] [address] Vitamin D deficiency Social History Tobacco Use [...] 10:42 AM Michelle Holland P hD * How difficult have these problems made it for you to do your work, take care of things at home, or get along with other people? Answer Date of Assessment Author Extremely difficult 10/22/2023 10:42 AM Michelle Wooten, PhD * Over the last 2 weeks, how [...] Description 10/02/2025 2:00 PM EST Office Visit [facility] ADULT DENTAL [address] [place] [address] Isa De La Rosa, DDS [address] [place] [address] 2025 2:00 PM EST Office Visit [facility] MEDICINE [address] [place] [address] Shereen Latham MD [address] [place] [address] documented as of this encounter Visit Diagnoses Diagnosis Vitamin D deficiency documented in this encounter Additional Health Concerns Assessment Noted Time PHQ-9 Depression Total Score: 023 10:42 AM EST documented as of this encounter Care Teams Dewaterer Operator Relationship Specialty Start Date End Date Shereen Latham MD [address] [place] [address] PCP - General Family Medicine 11/02/18 Nupur Bullock, CharleneD [address] [place] [address] Pharmacist Internal Medicine 08/09/24 05/15/25 Sury Benitez [address] [place] [address] [address] [place] [address] Pulmonary Disease 09/27/24 Nirali Madrid OD [address] [place] [address] Optometry 10/27/24 Li Grande MD [address] [place] [address] Hematology and Oncology 10/27/24 Anselmo Gates MD 10 [facility] [address] [place] [address] Orthopaedic Surgery 10/27/24 Margaret Holman 11 [facility] 3rd [place] [address] Cardiology 10/27/24 Herberth Stokes MD 11 [facility] 3rd [place] [address] Gastroenterology 10/27/24 Hilton Palacios MD 15 [facility], [address] [place] [address] Neurology 02/06/25 Aaron Pringle MD 11 [facility] 3rd [place] [address] General Surgery 03/07/25 Lori James Registered Nurse 06/15/25 06/15/25 Neelima Raygoza 06/15/25 06/16/25 Ronda Rodríguez [address] [place] [address] [address] [place] [address] Obstetrics and Gynecology 08/02/25 Neelima Raygoza 08/14/25 08/23/25 Neelima Raygoza 08/28/25 08/29/25 Pily Delaney Elevator TroubleshooterInfrastructure Project Manager 07/22/24 Elie BRASHER [facility] Psychology 12/29/24 documented as of this encounter
--- OUTSIDE RECORDS SUMMARY | 2025-09-15 20:26 | XMS_ITS | Encounter Summary ---
Author Organization [employer] Address [address] [place] [address] 7 [place] [address] Care Team Providers Care Filling Machine Operator Name Role Phone [place], Shereen NOLASCO Primary Care Provider [phone] Nupur Bullock PharmD Unavailable Sury Benitez Unavailable [phone] JuliusNirali castellanos OD Unavailable Li Grande MD Unavailable [phone] Anselmo Gates MD Unavailable Margaret Holman Unavailable Herberth Stokes MD Unavailable [phone] Hilton Palacios MD Unavailable Aaron Pringle MD Unavailable [phone] Lori James Unavailable Neelima Raygoza Unavailable Ronda Rodríguez Unavailable Neelima Raygoza Unavailable Neelima Raygoza Unavailable Reason for Visit * Reason Onset Date Comments Nurse Triage 02/13/2025 Encounter Details Date Type Department Care Team (Late st Contact Info) Description 02/13/2025 Telephone [facility] MEDICINE 230 [place] [address] Shereen Latham MD 230 [place] [address] Nurse Triage Social History Tobacco Use Types [...] Description 10/02/2025 2:00 PM EST Office Visit [facility] ADULT DENTAL 230 [place] [address] Isa De La Rosa DDS [address] [place] [address] 2025 2:00 PM EST Office Visit [facility] MEDICINE [address] [place] [address] Shereen Latham MD 230 [place] [address] documented as of this encounter Visit Diagnoses Not on filedocumented in this encounter Additional Health Concerns Assessment Noted Time PHQ-9 Depression Total Score: 22 025 10:17 AM EST documented as of this encounter Care Teams Filling Machine Operator Relationship Specialty Start Date End Date Shereen Latham MD 230 [place] [address] PCP - General Family Medicine 11/02/18 Nupur Bullock, CharleneD 230 [place] [address] Pharmacist Internal Medicine 08/09/24 05/15/25 Sury Benitez [address] [place] [address] Dr [facility] 103 [place] [address] Pulmonary Disease 09/27/24 Nirali Madrid OD 267 [place] [address] Optometry 10/27/24 Li Grande MD [address] [place] [address] Hematology and Oncology 10/27/24 Anselmo Gates MD [address] [place] [address] Orthopaedic Surgery 10/27/24 Margaret Holman [address] 3rd [place] [address] Cardiology 10/27/24 Herberth Stokes MD [address] 3rd [place] [address] Gastroenterology 10/27/24 Hilton Palacios MD [address] [place] [address], [address] [place] [address] Neurology 02/06/25 Aaron Pringle MD [address] [place] [address] 3rd [place] [address] General Surgery 03/07/25 Lori James Registered Nurse 06/15/25 06/15/25 Neelima Raygoza 06/15/25 06/16/25 Ronda Rodríguez [address] [place] [address] [address] [place] [address] Obstetrics and Gynecology 08/02/25 Neelima Raygoza 08/14/25 08/23/25 Neelima Raygoza 08/28/25 08/29/25 Pily Delaney Manager Clinical PharmacyClassroom Technology Technician 07/22/24 Elie Vicky [facility] Psychology 12/29/24 documented as of this encounter
--- OUTSIDE RECORDS SUMMARY | 2025-09-15 20:26 | XMS_ITS | Encounter Summary ---
Author Organization [employer] Address 75 [facility] 7t [place] [address] Care Team Providers Care Sign Painter Name Role Phone [place], Shereen NOLASCO Primary Care Provider [phone] Nupur Bullock PharmD Unavailable Sury Benitez Unavailable [phone] Julius, Nirali OD Unavailable Li Grande MD Unavailable [phone] Anselmo Gates MD Unavailable Margaret Holman Unavailable Herberth Stokes MD Unavailable [phone] Hilton Palacios MD Unavailable Aaron Pringle MD Unavailable [phone] Lori James Unavailable Neelima Raygoza Unavailable Ronda Rodríguez Unavailable Neelima Raygoza Unavailable Star Raygozada Unavailable Reason for Visit * Reason Comments Med Refill Encounter Details Date Type Department Care Team ([facility] st Contact Info) Description 06/21/2024 Refill [facility] MED & PEDS [address] [place] [address] Shereen Latham MD 230 [place] [address] Mild intermittent asthma, unspecified whether complicated; Pain [...] EST Office Visit [facility] ADULT DENTAL [address] [place] [address] Paz-ConnorIsa abarca, DDS [address] [place] [address] 2025 2:00 PM EST Office Visit [facility] MEDICINE [address] [place] [address] Shereen Latham MD [address] [place] [address] documented as of this encounter Visit Diagnoses Diagnosis Mild intermittent asthma, unspecified whether complicated Pain Generalized pain documented in this encounter Additional Health Concerns Assessment Noted Time PHQ-9 Depression Total Score: 13 024 4:53 PM EDT documented as of this encounter Care Teams Sign Painter Relationship Specialty Start Date End Date Shereen Latham MD [address] [place] [address] PCP - General Family Medicine 11/02/18 Nupur Bullock, CharleneD [address] [place] [address] Pharmacist Internal Medicine 08/09/24 05/15/25 Sury Benitez [address] [place] [address] Dr [place] [address] [place] [address] Pulmonary Disease 09/27/24 Nirali Madrid OD 267 [place] [address] Optometry 10/27/24 Li Grande MD [address] [place] [address] Hematology and Oncology 10/27/24 Anselmo Gates MD [address] [place] [address] Orthopaedic Surgery 10/27/24 Margaret Holman [address] 3rd [place] [address] Cardiology 10/27/24 Herberth Stokes MD 11 [facility] 3rd [place] [address] Gastroenterology 10/27/24 Hilton Palacios MD 15 [facility], [address] [place] [address] Neurology 02/06/25 Aaron Pringle MD 11 [facility] 3rd [place] [address] General Surgery 03/07/25 Lori James Registered Nurse 06/15/25 06/15/25 Neelima Raygoza 06/15/25 06/16/25 Ronda Rodríguez [address] [place] [address] [address] [place] [address] Obstetrics and Gynecology 08/02/25 Neelima Raygoza 08/14/25 08/23/25 Neelima Raygoza 08/28/25 08/29/25 Pily Delaney Quality Compliance ConsultantBlueprint Developer 07/22/24 Elie BRASHER [facility] Psychology 12/29/24 documented as of this encounter
--- OUTSIDE RECORDS SUMMARY | 2025-09-15 20:26 | XMS_ITS | Encounter Summary ---
Author Organization [employer] Address 75 [facility] 7 [place] [address] Care Team Providers Care Literary Agent Name Role Phone Shereen Latham MD Primary Care Provider [phone] Sury Benitez Unavailable [phone] Nirali Madrid OD Unavailable Li Grande MD Unavailable [phone] Anselmo Gates MD Unavailable Margaret Holman Unavailable Herberth Stokes MD Unavailable [phone] Hilton Palacios MD Unavailable [phone] Aaron Pringle MD Unavailable [phone] Ronda Rodríguez Unavailable Neelima Raygoza Unavailable Neelima Raygoza Unavailable Reason for Visit * Reason Comments Med Refill Encounter Details Date Type Department Care Team (Late st Contact Info) Description 07/02/2025 Refill [facility] MEDICINE 230 [place], [place] [phone] Shereen Latham MD 230 [place], [place] [phone] Alcohol abuse Social History Tobacco Use Types [...] Description 10/02/2025 2:00 PM EST Office Visit [facility] ADULT DENTAL 230 [place] [address] Rj Isa, DDS 230 [place] [address] 2025 2:00 PM EST Office Visit [facility] MEDICINE [address] [place] [address] Shereen Latham MD 230 [place] [address] documented as of this encounter Visit Diagnoses Diagnosis Alcohol abuse Nondependent alcohol abuse, unspecified drinking behavior documented in this encounter Additional Health Concerns Assessment Noted Time PHQ-9 Depression Total Score: 21 025 11:03 AM EDT documented as of this encounter Care Teams Literary Agent Relationship Specialty Start Date End Date Shereen Latham MD 230 [place] [address] PCP - General Family Medicine 11/02/18 Sury Benitez [address] [place] [address] Dr [address] [place] [address] Pulmonary Disease 09/27/24 Nirali Madrid OD 267 [place] [address] Optometry 10/27/24 Li Grande MD 575 [place] [address] Hematology and Oncology 10/27/24 Anselmo Gates MD [address] [place] [address] Orthopaedic Surgery 10/27/24 Margaret Holman [address] 3rd [place] [address] Cardiology 10/27/24 Herberth Stokes MD [address] [facility] [address] 3rd [place] [address] Gastroenterology 10/27/24 Hilton Palacios MD [address] [place] [address], [address] [place] [address] Neurology 02/06/25 Aaron Pringle MD [address] [facility] [address] 3rd [place] [address] General Surgery 03/07/25 Ronda Rodríguez [address] [place] [address] [address] [place] [address] Obstetrics and Gynecology 08/02/25 Neelima Raygoza 08/14/25 08/23/25 Neelima Raygoza 08/28/25 08/29/25 Pily Delaney Golf Club MakerBonded Structures Repairer 07/22/24 Elie BRASHER [facility] Psychology 12/29/24 documented as of this encounter
--- OUTSIDE RECORDS SUMMARY | 2025-09-15 20:26 | XMS_ITS | Encounter Summary ---
Author Organization [employer] Address 75 [facility] 7 [place] [address] Care Team Providers Care Clinical Coder Name Role Phone [place], Shereen NOLASCO Primary Care Provider [phone] Nupur Bullock PharmD Unavailable [phone] Sury Benitez Unavailable [phone] JuliusNirali castellanos OD Unavailable Li Grande MD Unavailable [phone] Anselmo Gates MD Unavailable Margaret Holman Unavailable Herberth Stokes MD Unavailable [phone] Hilton Palacios MD Unavailable aAron Pringle MD Unavailable [phone] Lori James Unavailable Neelima Raygoza Unavailable Ronda Rodríguez Unavailable [phone] Neelima Raygoza Unavailable Neelima Raygoza Unavailable Encounter Details Date Type Department Care Team (Late st Contact Info) Description 04/26/2024 Orders Only [facility] MEDICINE 230 [place] [address] Junie Damon MD 230 [place] [address] Social History Tobacco Use Types Packs/Day Years [...] Description 10/02/2025 2:00 PM EST Office Visit [facility] ADULT DENTAL [address] [place] [address] PazJjIsa Connor, DDS [address] [place] [address] 2025 2:00 PM EST Office Visit [facility] MEDICINE 230 [place] [address] Shereen Latham MD [address] [place] [address] documented as of this encounter Visit Diagnoses Not on filedocumented in this encounter Additional Health Concerns Assessment Noted Time PHQ-9 Depression Total Score: 23 024 1:45 PM EDT documented as of this encounter Care Teams Clinical Coder Relationship Specialty Start Date End Date Shereen Latham MD [address] [place] [address] PCP - General Family Medicine 11/02/18 Nupur Bullock PharmD [address] [place] [address] Pharmacist Internal Medicine 08/09/24 05/15/25 Sury Benitez [address] [place] [address] Pulmonary Disease 09/27/24 Nirali Madrid OD [address] [place] [address] Optometry 10/27/24 Li Grande MD [address] [place] [address] Hematology and Oncology 10/27/24 Anselmo Gates MD [address] [place] [address] Orthopaedic Surgery 10/27/24 Margaret Holman [address] 3rd [place] [address] Cardiology 10/27/24 Herberth Stokes MD [address] 3rd [place] [address] Gastroenterology 10/27/24 Hilton Palacios MD [address] [facility] [address], [address] [place] [address] Neurology 02/06/25 Aaron Pringle MD [address] 3rd [place] [address] General Surgery 03/07/25 Lori James Registered Nurse 06/15/25 06/15/25 Neelima Raygoza 06/15/25 06/16/25 Ronda Rodríguez [address] [place] [address] [address] [place] [address] Obstetrics and Gynecology 08/02/25 Neelima Raygoza 08/14/25 08/23/25 Neelima Raygoza 08/28/25 08/29/25 Pily Delaney Barrel Rifler HookDiet Assistant 07/22/24 Elie Vicky [facility] Psychology 12/29/24 documented as of this encounter
--- OUTSIDE RECORDS SUMMARY | 2025-09-15 20:26 | XMS_ITS | Encounter Summary ---
Author Organization [employer] Address [address] [place] [address] 7 [place] [address] Care Team Providers Care Head Banquet Waiter/Waitress Name Role Phone [place], Shereen NOLASCO Primary Care Provider [phone] Nupur Bullock PharmD Unavailable Sury Benitez Unavailable [phone] JuliusNirali castellanos OD Unavailable Li Grande MD Unavailable [phone] Anselmo Gates MD Unavailable Margaret Holman Unavailable Herberth Stokes MD Unavailable [phone] Hilton Palacios MD Unavailable Aaron Pringle MD Unavailable [phone] Lori James Unavailable Neelima Raygoza Unavailable Ronda Rodríguez Unavailable Neelima Raygoza Unavailable Neelima Raygoza Unavailable Reason for Visit * Reason Onset Date Comments Medication Question 07/05/2024 Encounter Details Date Type Department Care Team ([facility] st Contact Info) Description 07/05/2024 Telephone [facility] MEDICINE 230 [place] [address] Shereen Latham MD 230 [place] [address] Medication Question Social History Tobacco Use Types [...] is no medication interaction. Contact pt at [phone] documented in this encounter Plan of Treatment Upcoming Encounters Date Type Department Care Team (Late st Contact Info) Description 10/02/2025 2:00 PM EST Office Visit [facility] ADULT DENTAL 230 [place] [address] Isa De La Rosa DDS 230 [place] [address] 2025 2:00 PM EST Office Visit [facility] MEDICINE [address] [place] [address] Shereen Latham MD 230 [place] [address] documented as of this encounter Visit Diagnoses Diagnosis Pain Generalized pain documented in this encounter Additional Health Concerns Assessment Noted Time PHQ-9 Depression Total Score: 13 024 4:53 PM EDT documented as of this encounter Care Teams Head Banquet Waiter/Waitress Relationship Specialty Start Date End Date Shereen Latham MD 230 [place] [address] PCP - General Family Medicine 11/02/18 Nupur Bullock, CharleneD 230 [place] [address] Pharmacist Internal Medicine 08/09/24 05/15/25 Sury Benitez [address] [place] [address] [address] [place] [address] Pulmonary Disease 09/27/24 Nirali Madrid OD [address] [place] [address] Optometry 10/27/24 Li Grande MD [address] [place] [address] Hematology and Oncology 10/27/24 Anselmo Gates MD 10 [facility] 203 [place] [address] Orthopaedic Surgery 10/27/24 Margaret Holman 11 [facility] 3rd [place] [address] Cardiology 10/27/24 Herberth Stokes MD 11 [facility] 3rd [place] [address] Gastroenterology 10/27/24 Hilton Palacios MD [address] [place] [address], [address] [place] [address] Neurology 02/06/25 Aaron Pringle MD 11 [facility] 3rd [place] [address] General Surgery 03/07/25 Lori James Registered Nurse 06/15/25 06/15/25 Neelima Raygoza 06/15/25 06/16/25 Ronda Rodríguez [address] [place] [address] Obstetrics and Gynecology 08/02/25 Neelima Raygoza 08/14/25 08/23/25 Neelima Raygoza 08/28/25 08/29/25 Pily Delaney Under PresserTelegraph Operator 07/22/24 Elie BRASHER [facility] Psychology 12/29/24 documented as of this encounter
--- OUTSIDE RECORDS SUMMARY | 2025-09-15 20:27 | XMS_ITS | Encounter Summary ---
Author Organization [employer] Address [address] [place] [address] 7 [place] [address] Care Team Providers Care Tub Puller Name Role Phone Shereen Latham MD Primary Care Provider [phone] Nupur Bullock PharmD Unavailable Sury Benitez Unavailable [phone] Julius, Nirali OD Unavailable Li Grande MD Unavailable [phone] Anselmo Gates MD Unavailable Margaret Holman Unavailable Herberth Stokes MD Unavailable [phone] Hilton Palacios MD Unavailable Aaron Pringle MD Unavailable [phone] Lori James Unavailable Neelima Raygoza Unavailable Ronda Rodríguez Unavailable Neelima Raygoza Unavailable Neelima Raygoza Unavailable Encounter Details Date Type Department Care Team (Late st Contact Info) Description 11/16/2022 Abstract [facility] MEDICINE [address] [place] [address] Shereen Latham MD 230 [place] [address] Social History Tobacco Use Types Packs/Day Years [...] 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 Per Dr. Krish Loomis's note from [facility] [employer], pt was due for repeat colposcopy in [...] Associated Problem(s): Hyperaldosteronism (Resolved 07/29/2023) Seen by [facility] Endocrinology 04/03/2022. Initially seen 12/2021 for hyperaldosteronism. Labs [facility] 10/2021 aldosterone 8, plasma renin 0.11, aldosterone/renin 72.7. She was likely on spironolactone and lisinopril at time of labs. Advise no spironolactone for 6 weeks and recheck renin aldosterone levels with renal panel and magnesium in warp tying machine tender. 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 -S/p RIGHT [facility]aste[facility] with sent[facility] started Oct, [...] * Assessment & Plan Note - Shereen Lathma MD - 11/16/2022 10:53 AM EST Associated Problem(s): Transaminitis Ultrasound ordered 06/23 for left flank pain. On 09/02/22 Pt had ultrasound sound for abdominal pain at [facility]. Ultrasound showed diffusely echogenic parenchyma with focal sparing around the gallbladder. No suspicious lesions. Impression showed liver likely representing hepatic steatosis and non- obstructing right kidney stone. documented in this encounter Plan of Treatment Upcoming Encounters Date Type Department Care Team (Late st Contact Info) Description 10/02/2025 2:00 PM EST Office Visit [facility] ADULT DENTAL [address] [place] [address] Paz-Connor, Isa, DDS 230 [place] [address] 2025 2:00 PM EST Office Visit [facility] MEDICINE [address] [place] [address] Shereen Latham MD [address] [place] [address] documented as of this encounter Visit Diagnoses Not on filedocumented in this encounter Care Teams Tub Puller Relationship Specialty Start Date End Date Shereen Latham MD 230 [place] [address] PCP - General Family Medicine 11/02/18 Nupur Bullock PharmD [address] [place] [address] Pharmacist Internal Medicine 08/09/24 05/15/25 Sury Benitez [address] [place] [address] [place] [address] Pulmonary Disease 09/27/24 Nirali Madrid OD [address] [place] [address] Optometry 10/27/24 Li Grande MD 575 [place] [address] Hematology and Oncology 10/27/24 Anselmo Gates MD 10 [facility] [address] [place] [address] Orthopaedic Surgery 10/27/24 Margaret Holman 11 [facility] 3rd [place] [address] Cardiology 10/27/24 Herberth Stokes MD 11 [facility] 3rd [place] [address] Gastroenterology 10/27/24 Hilton Palacios MD 15 [facility], [address] [place] [address] Neurology 02/06/25 Aaron Pringle MD [address] [place] [address] 3rd [place] [address] General Surgery 03/07/25 Lori James Registered Nurse 06/15/25 06/15/25 Neelima Raygoza 06/15/25 06/16/25 Ronda Rodríguez [address] [place] [address] [address] [place] [address] Obstetrics and Gynecology 08/02/25 Neelima Raygoza 08/14/25 08/23/25 Neelima Raygoza 08/28/25 08/29/25 Pily Delaney Chief Executive Or Managing DirectorMental Health Program Specialist 07/22/24 Elie Vciky [facility] 12/29/24 documented as of this encounter
--- OUTSIDE RECORDS SUMMARY | 2025-09-15 20:27 | XMS_ITS | Encounter Summary ---
Author Organization [employer] Address [address] [place] [address] 7 [place] [address] Care Team Providers Care Lithograph Press Operator Name Role Phone Shereen Latham MD Primary Care Provider [phone] Nupur Bullock PharmD Unavailable Sury Benitez Unavailable [phone] Julius, Nirali OD Unavailable Li Grande MD Unavailable [phone] Anselmo Gates MD Unavailable Margaret Holman Unavailable Herberth Stokes MD Unavailable [phone] Hilton Palacios MD Unavailable Aaron Pringle MD Unavailable [phone] Lori James Unavailable Neelima Raygoza Unavailable Ronda Rodríguez Unavailable Neelima Raygoza Unavailable Neelima Raygoza Unavailable Encounter Details Date Type Department Care Team (Late st Contact Info) Description 10/11/2024 Telephone [facility] [address] [place] [address] Shereen Latham MD 230 [place] [address] Social History Tobacco Use Types Packs/Day Years [...] Description 10/02/2025 2:00 PM EST Office Visit [facility] [address] [place] [address] PazJjIsa Connor, DDS [address] [place] [address] 2025 2:00 PM EST Office Visit [facility] [address] [place] [address] Shereen Latham MD [address] [place] [address] documented as of this encounter Visit Diagnoses Not on filedocumented in this encounter Additional Health Concerns Assessment Noted Time PHQ-9 Depression Total Score: 13 024 4:53 PM EDT documented as of this encounter Care Teams Lithograph Press Operator Relationship Specialty Start Date End Date Shereen Latham MD [address] [place] [address] PCP - General Family Medicine 11/02/18 Nupur Bullock, CharleneD [address] [place] [address] Pharmacist Internal Medicine 08/09/24 05/15/25 Sury Benitez [address] [place] [address] Pulmonary Disease 09/27/24 Nirali Madrid OD [address] [place] [address] Optometry 10/27/24 Li Grande MD [address] [place] [address] Hematology and Oncology 10/27/24 Anselmo Gates MD [address] [place] [address] Orthopaedic Surgery 10/27/24 Margaret Holman [address]rd [place] [address] Cardiology 10/27/24 Herberth Stokes MD [address] 3rd [place] [address] Gastroenterology 10/27/24 Hilton Palacios MD [address] [facility] [address] [place] [address] Neurology 02/06/25 Aaron Pringle MD [address] 3rd [place] [address] General Surgery 03/07/25 Lori James Registered Nurse 06/15/25 06/15/25 Neeliam Raygoza 06/15/25 06/16/25 Ronda Rodríguez [address] [place] [address] 215 [place] [address] Obstetrics and Gynecology 08/02/25 Neelima Raygoza 08/14/25 08/23/25 Neelima Raygoza 08/28/25 08/29/25 Pily Delaney Blow Torch OperatorConcrete Worker 07/22/24 Elie Vicky [facility] Psychology 12/29/24 documented as of this encounter
--- OUTSIDE RECORDS SUMMARY | 2025-09-15 20:27 | XMS_ITS | Encounter Summary ---
Author Organization [employer] Address [address] [place] [address] 7 [place] [address] Care Team Providers Care Senior Database Programmer Name Role Phone [place], Shereen NOLASCO Primary Care Provider [phone]- [phone] Nupur Bullock PharmD Unavailable Sury Benitez Unavailable [phone] JuliusNirali castellanos OD Unavailable Li Grande MD Unavailable [phone] Anselmo Gates MD Unavailable Margaret Holman Unavailable Herberth Stokes MD Unavailable [phone] Hilton Palacios MD Unavailable [phone] Aaron Pringle MD Unavailable [phone] Lori James Unavailable Neelima Raygoza Unavailable Ronda Rodríguez Unavailable Neelima Raygoza Unavailable Neelima Raygoza Unavailable Reason for Visit * Reason Onset Date Comments Nurse Triage 01/25/2024 Referral 01/25/2024 Encounter Details Date Type Department Care Team (Late st Contact Info) Description 01/25/2024 Telephone [facility]INE 230 [place] [address] Shereen Latham MD 230 [place] [address] Nurse Triage; Referral Social History Tobacco Use [...] vary. Pt wants to be referred to [address] [address]. [facility] will send to team to review [...] Description 10/02/2025 2:00 PM EST Office Visit [facility] ADULT DENTAL [address] [place] [address] Isa De La Rosa, DDS 230 [place] [address] 2025 2:00 PM EST Office Visit [facility] MED[facility]INE [address] [place] [address] Shereen Latham MD [address] [place] [address] documented as of this encounter Visit Diagnoses Not on filedocumented in this encounter Additional Health Concerns Assessment Noted Time PHQ-9 Depression Total Score: 21 023 10:42 AM EST documented as of this encounter Care Teams Senior Database Programmer Relationship Specialty Start Date End Date Shereen Latham MD [address] [place] [address] PCP - General Family Medicine 11/02/18 Nupur Bullock, CharleneD [address] [place] [address] Pharmacist Internal Medicine 08/09/24 05/15/25 Sury Benitez [address] [place] [address] [place] [address] Pulmonary Disease 09/27/24 Nirali Madrid OD [address] [place] [address] Optometry 10/27/24 Li Grande MD [address] [place] [address] Hematology and Oncology 10/27/24 Anselmo Gates MD [address] [place] [address] Orthopaedic Surgery 10/27/24 Margaret Holman [address] 3rd [place] [address] Cardiology 10/27/24 Herberth Stokes MD [address] [facility] 3rd [place] [address] Gastroenterology 10/27/24 Hilton Palacios MD [address] [facility], [address] [place] [address] Neurology 02/06/25 Aaron Pringle MD 11 [facility] 3rd [place] [address] General Surgery 03/07/25 Lori James Registered Nurse 06/15/25 06/15/25 Neelima Raygoza 06/15/25 06/16/25 Ronda Rodríguez [address] [place] [address] 215 [place] [address] Obstetrics and Gynecology 08/02/25 Neelima Raygoza 08/14/25 08/23/25 Neelima Raygoza 08/28/25 08/29/25 Pily Delaney Winder TenderCustomer Support Consultant 07/22/24 Elie [facility] Psychology 12/29/24 documented as of this encounter
--- OUTSIDE RECORDS SUMMARY | 2025-09-15 20:27 | XMS_ITS | Encounter Summary ---
Author Organization [employer] Address [address] [facility] 7t [place] [address] Care Team Providers Care Food And Nutrition Teacher Name Role Phone [place], Shereen NOLASCO Primary Care Provider [phone]- [phone] Nupur Bullock PharmD Unavailable [phone] Sury Benitez Unavailable [phone] JuliusNirali castellanos OD Unavailable Li Grande MD Unavailable [phone] Anselmo Gates MD Unavailable Margaret Holman Unavailable Herberth Stokes MD Unavailable [phone] Hilton Palacios MD Unavailable Aaron Pringle MD Unavailable [phone] Lori James Unavailable Neelima Raygoza Unavailable Ronda Rodríguez Unavailable Neelima Raygoza Unavailable Neelima Raygoza Unavailable Encounter Details Date Type Department Care Team (Latest Contact Info) Description 08/16/2021 Abstract [facility] CONVERSIONS Dental, Provider, DDS Social [...] Description 10/02/2025 2:00 PM EST Office Visit [facility] ADULT DENTAL [address] [place] [address] Paz-Connor, Isa, DDS [address] [place] [address] 2025 2:00 PM EST Office Visit [facility] MEDICINE [address] [place] [address] Shereen Latham MD [address] [place] [address] documented as of this encounter Visit Diagnoses Not on filedocumented in this encounter Care Teams Food And Nutrition Teacher Relationship Specialty Start Date End Date Shereen Latham MD [address] [place] [address] PCP - General Family Medicine 11/02/18 Nupur Bullock PharmD [address] [place] [address] Pharmacist Internal Medicine 08/09/24 05/15/25 Sury Benitez [address] [place] [address] Pulmonary Disease 09/27/24 Niarli Madrid OD [address] [place] [address] Optometry 10/27/24 Li Grande MD 575 [place] [address] Hematology and Oncology 10/27/24 Anselmo Gates MD 10 [facility] [address] [place] [address] Orthopaedic Surgery 10/27/24 Margaret Holman 11 [facility] 3rd [place] [address] Cardiology 10/27/24 Herberth Stokes MD 11 [facility] 3rd [place] [address] Gastroenterology 10/27/24 Hilton Palacios MD [facility], [address] [place] [address] Neurology 02/06/25 Aaron Pringle MD 11 [facility] 3rd [place] [address] General Surgery 03/07/25 Lori James Registered Nurse 06/15/25 06/15/25 Neelima Raygoza 06/15/25 06/16/25 Ronda Rodríguez [address] [place] [address] 215 [place] [address] Obstetrics and Gynecology 08/02/25 Neelima Raygoza 08/14/25 08/23/25 Neelima Raygoza 08/28/25 08/29/25 Pily Delaney Payroll Accounting SpecialistSports Information Director 07/22/24 Elie Vicky [facility] Psychology 12/29/24 documented as of this encounter
--- OUTSIDE RECORDS SUMMARY | 2025-09-15 20:27 | XMS_ITS | Encounter Summary ---
Author Organization [employer] Address [address] [facility] 7t [place] [address] Care Team Providers Care Belting And Webbing Inspector Name Role Phone [place], Shereen NOLASCO Primary Care Provider [phone] Nupur Bullock PharmD Unavailable Sury Benitez Unavailable [phone] JuliusNirali OD Unavailable Li Grande MD Unavailable [phone] Anselmo Gates MD Unavailable Margaret Holman Unavailable Herberth Stokes MD Unavailable [phone] Hilton Palacios MD Unavailable Aaron Pringle MD Unavailable [phone] Lori James Unavailable Neelima Raygoza Unavailable Ronda Rodríguez Unavailable [phone] Neelima Raygoza Unavailable Neelima Raygoza Unavailable Encounter Details Date Type Department Care Team (Latest Contact Info) Description 07/06/2019 Abstract [facility] CONVERSIONS Dental, Provider, DDS Social History [...] Description 10/02/2025 2:00 PM EST Office Visit [facility] ADULT DENTAL [address] [place] [address] Paz-Connor, Isa, DDS [address] [place] [address] 2025 2:00 PM EST Office Visit [facility] MEDICINE [address] [place] [address] Shereen Latham MD [address] [place] [address] documented as of this encounter Visit Diagnoses Not on filedocumented in this encounter Care Teams Belting And Webbing Inspector Relationship Specialty Start Date End Date Shereen Latham MD [address] [place] [address] PCP - General Family Medicine 11/02/18 Nupur Bullock PharmD [address] [place] [address] Pharmacist Internal Medicine 08/09/24 05/15/25 Sury Benitez [address] [place] [address] Pulmonary Disease 09/27/24 Nirali Madrid OD [address] [place] [address] Optometry 10/27/24 Li Grande MD 171 [place] [address] Hematology and Oncology 10/27/24 Anselmo Gates MD [address] [facility] [address] [place] [address] Orthopaedic Surgery 10/27/24 Margaret Holman 11 [facility] 3rd [place] [address] Cardiology 10/27/24 Herberth Stokes MD 11 [facility] [address]rd [place] [address] Gastroenterology 10/27/24 Hilton Palacios MD 15 [facility], [address] [place] [address] Neurology 02/06/25 Aaron Pringle MD 11 [facility] [address] [place] [address] General Surgery 03/07/25 Lori James Registered Nurse 06/15/25 06/15/25 Neelima Raygoza 06/15/25 06/16/25 Ronda Rodírguez [address] [place] [address] 215 [place] [address] Obstetrics and Gynecology 08/02/25 Neelima Raygoza 08/14/25 08/23/25 Neelima Raygoza 08/28/25 08/29/25 Pily Delaney Firebrick LayerAssembler Dc Field Yoke 07/22/24 Elie Vicky [facility] Psychology 12/29/24 documented as of this encounter
--- OUTSIDE RECORDS SUMMARY | 2025-09-15 20:27 | XMS_ITS | Encounter Summary ---
Author Organization [employer] Address [address] [place] [address] 7 [place] [address] Care Team Providers Care Director Of Casework Department Name Role Phone [place], Shereen NOLASCO Primary Care Provider [phone] Nupur Bullock PharmD Unavailable Sury Benitez Unavailable [phone] JuliusNirali castellanos OD Unavailable Li Grande MD Unavailable [phone] Anselmo Gates MD Unavailable Margaret Holman Unavailable Herberth Stokes MD Unavailable [phone] Hilton Palacios MD Unavailable Aaron Pringle MD Unavailable [phone] Lori James Unavailable Neelima Raygoza Unavailable Ronda Rodríguez Unavailable [phone] Neelima Raygoza Unavailable Neelima Raygoza Unavailable Reason for Visit * Reason Onset Date Comments Medication Question 08/25/2024 Encounter Details Date Type Department Care Team ([facility] st Contact Info) Description 08/25/2024 Telephone [facility] MEDICINE 230 [place] [address] Shereen Latham MD 230 [place] [address] Medication Question Social History Tobacco Use Types [...] any questions you can contact pt at [phone]. documented in this encounter Plan of Treatment Upcoming Encounters Date Type Department Care Team (Late st Contact Info) Description 10/02/2025 2:00 PM EST Office Visit [facility] ADULT DENTAL [address] [place] [address] Isa De La Rosa, DDS [address] [place] [address] 2025 2:00 PM EST Office Visit [facility] MEDICINE 230 [place] [address] Shereen Latham MD [address] [place] [address] documented as of this encounter Visit Diagnoses Not on filedocumented in this encounter Additional Health Concerns Assessment Noted Time PHQ-9 Depression Total Score: 13 024 4:53 PM EDT documented as of this encounter Care Teams Director Of Casework Department Relationship Specialty Start Date End Date Shereen Latham MD [address] [place] [address] PCP - General Family Medicine 11/02/18 Nupur Bullock, CharleneD [address] [place] [address] Pharmacist Internal Medicine 08/09/24 05/15/25 Sury Benitez [address] [place] [address] [address] [place] [address] Pulmonary Disease 09/27/24 Julius NiraliSUSAN [address] [place] [address] Optometry 10/27/24 Li Grande MD [address] [place] [address] Hematology and Oncology 10/27/24 Anselmo Gates MD [address] [place] [address] Orthopaedic Surgery 10/27/24 Margaret Holman 11 [facility] 3rd [place] [address] Cardiology 10/27/24 Herberth Stokes MD 11 [facility] 3rd [place] [address] Gastroenterology 10/27/24 Hilton Palacios MD [address] [place] [address], [address] [place] [address] Neurology 02/06/25 Aaron Pringle MD 11 [facility] 3rd [place] [address] General Surgery 03/07/25 Lori James Registered Nurse 06/15/25 06/15/25 Neelima Raygoza 06/15/25 06/16/25 Ronda Rodríguez [address] [place] [address] 215 [place] [address] Obstetrics and Gynecology 08/02/25 Neelima Raygoza 08/14/25 08/23/25 Neelima Raygoza 08/28/25 08/29/25 Pily Delaney Senior Reactor OperatorTable Assembler Metal 07/22/24 Elie BRASHER [facility] Psychology 12/29/24 documented as of this encounter
--- OUTSIDE RECORDS SUMMARY | 2025-09-15 20:27 | XMS_ITS | Encounter Summary ---
Author Organization [employer] Address [address] [place] [address] 7 [place] [address] Care Team Providers Care Oncology Technician Name Role Phone [place], Shereen NOLASCO Primary Care Provider [phone] Nupur Bullock PharmD Unavailable Sury Benitez Unavailable [phone] Julius, Nirali OD Unavailable Li Grande MD Unavailable [phone] Anselmo Gates MD Unavailable Margaret Holman Unavailable Herberth Stokes MD Unavailable [phone] Hilton Palacios MD Unavailable Aaron Pringle MD Unavailable Lori James Unavailable Neelima Raygoza Unavailable Ronda Rodríguez Unavailable [phone] Neelima Raygoza Unavailable Neelima Raygoza Unavailable Reason for Visit * Reason Comments Med Refill Encounter Details Date Type Department Care Team (Late st Contact Info) Description 12/02/2022 Refill [facility] MEDICINE [address] [place] [address] Shereen Latham MD [address] [place] [address] Wheeze (Primary Dx); Pain Social History Tobacco [...] Description 10/02/2025 2:00 PM EST Office Visit [facility] ADULT DENTAL [address] [place] [address] Paz-ConnorAlfredo abarcafemia, DDS [address] [place] [address] 2025 2:00 PM EST Office Visit [facility] MEDICINE [address] [place] [address] Shereen Latham MD [address] [place] [address] documented as of this encounter Visit Diagnoses Diagnosis Wheeze- Primary Wheezing Pain Generalized pain documented in this encounter Care Teams Oncology Technician Relationship Specialty Start Date End Date Shereen Latham MD [address] [place] [address] PCP - General Family Medicine 11/02/18 Nupur Bullock, CharleneD [address] [place] [address] Pharmacist Internal Medicine 08/09/24 05/15/25 Sury Benitez [address] [place] [address] Dr Milan [address] [place] [address] Pulmonary Disease 09/27/24 Nirali Madrid OD [address] [place] [address] Optometry 10/27/24 Li Grande MD [address] [place] [address] Hematology and Oncology 10/27/24 Anselmo Gates MD [address] [place] [address] Orthopaedic Surgery 10/27/24 Margaret Holman [address] 3rd [place] [address] Cardiology 10/27/24 Herberth Stokes MD 11 [facility] 3rd [place] [address] Gastroenterology 10/27/24 Hilton Palacios MD [address] [facility], [address] [place] [address] Neurology 02/06/25 Aaron Pringle MD 11 [facility] 3rd [place] [address] General Surgery 03/07/25 Lori James Registered Nurse 06/15/25 06/15/25 Neelima Raygoza 06/15/25 06/16/25 Ronda Rodríguez [address] [place] [address] [address] [place] [address] Obstetrics and Gynecology 08/02/25 Neelima Raygoza 08/14/25 08/23/25 Neelima Raygoza 08/28/25 08/29/25 Pily Delaney Data Systems AnalystPrinting Roller Handler 07/22/24 Elie BRASHER [facility] Psychology 12/29/24 documented as of this encounter
--- OUTSIDE RECORDS SUMMARY | 2025-09-15 20:27 | XMS_ITS | Encounter Summary ---
Author Organization [employer] Address [address] [facility] 7 [place] [address] Care Team Providers Care Camouflage Specialist Name Role Phone Shereen Latham MD Primary Care Provider [phone] Nupur Bullock PharmD Unavailable [phone] Sury Benitez Unavailable [phone] Julius, Nirali OD Unavailable Li Grande MD Unavailable [phone] Anselmo Gates MD Unavailable Margaret Holman Unavailable Herberth Stokes MD Unavailable [phone] Hilton Palacios MD Unavailable Aaron Pringle MD Unavailable [phone] Lori James Unavailable Neelima Raygoza Unavailable Ronda Rodríguez Unavailable [phone] Neelima Raygoza Unavailable Neelima Raygoza Unavailable Encounter Details Date Type Department Care Team (Late st Contact Info) Description 07/27/2023 Orders Only [facility] MEDICINE 230 [place] [address] Shereen Latham MD [address] [place] [address] Hypomagnesemia Social History Tobacco Use Types Packs/Day [...] Description 10/02/2025 2:00 PM EST Office Visit [facility] ADULT DENTAL [address] [place] [address] Paz-ConnorIsa, DDS [address] [place] [address] 2025 2:00 PM EST Office Visit [facility] MEDICINE [address] [place] [address] Shereen Latham MD [address] [place] [address] documented as of this encounter Visit Diagnoses Diagnosis Hypomagnesemia Disorders of magnesium metabolism documented in this encounter Additional Health Concerns Assessment Noted Time PHQ-9 Depression Total Score: 10 023 10:27 AM EDT documented as of this encounter Care Teams Camouflage Specialist Relationship Specialty Start Date End Date Shereen Latham MD [address] [place] [address] PCP - General Family Medicine 11/02/18 Nupur Bullock, CharleneD [address] [place] [address] Pharmacist Internal Medicine 08/09/24 05/15/25 Sury Bneitez [address] [place] [address] [address] [place] [address] Pulmonary Disease 09/27/24 Nirali Madrid OD [address] [place] [address] Optometry 10/27/24 Li Grande MD [address] [place] [address] Hematology and Oncology 10/27/24 Anselmo Gates MD 10 [facility] [address] [place] [address] Orthopaedic Surgery 10/27/24 Margaret Holman 11 [facility] 3rd [place] [address] Cardiology 10/27/24 Herberth Stokes MD 11 [facility] [address]rd [place] [address] Gastroenterology 10/27/24 Hilton Palacios MD 15 [facility], [address] [place] [address] Neurology 02/06/25 Aaron Pringle MD 11 [facility] 3rd [place] [address] General Surgery 03/07/25 Lori James Registered Nurse 06/15/25 06/15/25 Neelima Raygoza 06/15/25 06/16/25 Ronda Rodríguez [address] [place] [address] [address] [place] [address] Obstetrics and Gynecology 08/02/25 Neelima Raygoza 08/14/25 08/23/25 Neelima Raygoza 08/28/25 08/29/25 Pily Delaney Boot MakerPublishing Specialist 07/22/24 Elie BRASHER [facility] Psychology 12/29/24 documented as of this encounter
--- OUTSIDE RECORDS SUMMARY | 2025-09-15 20:27 | XMS_ITS | Encounter Summary ---
Author Organization [employer] Address 75 [facility] 7 [place] [address] Care Team Providers Care Property Preservation Specialist Name Role Phone [place], Shereen NOLASCO Primary Care Provider [phone] Nupur Bullock PharmD Unavailable Sury Benitez Unavailable [phone] JuliusiNrali castellanos OD Unavailable Li Grande MD Unavailable [phone] Anselmo Gates MD Unavailable Margaret Holman Unavailable Herberth Stokes MD Unavailable [phone] Hilton Palacios MD Unavailable Aaron Pringle MD Unavailable [phone] Lori James Unavailable Neelima Raygoza Unavailable Ronda Rodríguez Unavailable Neelima Raygoza Unavailable Neelima Raygoza Unavailable Reason for Visit * Reason Onset Date Comments ER Follow-up 12/07/2024 Encounter Details Date Type Department Care Team (Late st Contact Info) Description 12/07/2024 Telephone [facility] MEDICINE [address] [place] [address] Shereen Latham MD 230 [place] [address] ER Follow-up Social History Tobacco Use Types [...] TC placed to pt to f/u on [facility] ED visit on 12/06/2024 for right lower [...] ED visit on : Date: 12/06/24 Hospital: [facility] Seen for: Flu Patient advised will forward to team nurse for follow up documented in this encounter Plan of Treatment Upcoming Encounters Date Type Department Care Team (Late st Contact Info) Description 10/02/2025 2:00 PM EST Office Visit [facility] ADULT DENTAL [address] [place] [address] Isa De La Rosa DDS [address] [place] [address] 2025 2:00 PM EST Office Visit [facility] MEDICINE [address] [place] [address] Shereen Latham MD [address] [place] [address] documented as of this encounter Visit Diagnoses Not on filedocumented in this encounter Additional Health Concerns Assessment Noted Time PHQ-9 Depression Total Score: 13 024 4:53 PM EDT documented as of this encounter Care Teams Property Preservation Specialist Relationship Specialty Start Date End Date Shereen Lathma MD 230 [place] [address] PCP - General Family Medicine 11/02/18 Nupur Bullock, CharleneD [address] [place] [address] Pharmacist Internal Medicine 08/09/24 05/15/25 Sury Benitez [address] [place] [address] [address] [place] [address] Pulmonary Disease 09/27/24 Nirali Madrid OD [address] [place] [address] Optometry 10/27/24 Li Grande MD [address] [place] [address] Hematology and Oncology 10/27/24 Anselmo Gates MD 10 [facility] [address] [place] [address] Orthopaedic Surgery 10/27/24 Margaret Holman 11 [facility] 3rd [place] [address] Cardiology 10/27/24 Herberth Stokes MD 11 [facility] 3rd [place] [address] Gastroenterology 10/27/24 Hilton Palacios MD [address] [place] [address], [address] [place] [address] Neurology 02/06/25 Aaron Pringle MD [address] [place] [address] [address] [facility] [address] General Surgery 03/07/25 Lori James Registered Nurse 06/15/25 06/15/25 Neelima Raygoza 06/15/25 06/16/25 Ronda Rodríguez [address] [place] [address] [address] [place] [address] Obstetrics and Gynecology 08/02/25 Neelima Raygoza 08/14/25 08/23/25 Neelima Raygoza 08/28/25 08/29/25 Pily Delaney Mba InternshipSystems Analyst Developer 07/22/24 Elie BRASHER [facility] Psychology 12/29/24 documented as of this encounter
--- OUTSIDE RECORDS SUMMARY | 2025-09-15 20:27 | XMS_ITS | Encounter Summary ---
Author Organization [employer] Address [address] [place] [address] 7 [place] [address] Care Team Providers Care Marble And Granite Polisher Name Role Phone [place], Shereen NOLASCO Primary Care Provider [phone] Nupur Bullock PharmD Unavailable [phone] Sury Benitez Unavailable [phone] JuluisNirali castellanos OD Unavailable Li Grande MD Unavailable [phone] Anselmo Gates MD Unavailable Margaret Holman Unavailable Herberth Stokes MD Unavailable [phone] Hilton Palacios MD Unavailable Aaron Pringle MD Unavailable [phone] Lori James Unavailable Neelima Raygoza Unavailable Ronda Rodríguez Unavailable Neelima Raygoza Unavailable Neelima Raygoza Unavailable Reason for Visit * Reason Onset Date Comments Appointment Request 04/25/2025 Encounter Details Date Type Department Care Team ([facility] st Contact Info) Description 04/25/2025 Telephone [facility] MEDICINE 230 [place] [address] Shereen Latham MD 230 [place] [address] Appointment Request Social History Tobacco Use Types [...] Description 10/02/2025 2:00 PM EST Office Visit [facility] ADULT DENTAL 230 [place] [address] Isa De La Rosa DDS 230 [place] [address] 2025 2:00 PM EST Office Visit [facility] MEDICINE 230 [place] [address] Shereen Latham MD [address] [place] [address] documented as of this encounter Visit Diagnoses Not on filedocumented in this encounter Additional Health Concerns Assessment Noted Time PHQ-9 Depression Total Score: 22 025 10:17 AM EST documented as of this encounter Care Teams Marble And Granite Polisher Relationship Specialty Start Date End Date Shereen Latham MD [address] [place] [address] PCP - General Family Medicine 11/02/18 Nupur Bullock, CharleneD [address] [place] [address] Pharmacist Internal Medicine 08/09/24 05/15/25 Sury Benitez [address] [place] [address] Dr Milan [address] [place] [address] Pulmonary Disease 09/27/24 Nirali Madrid OD 267 [place] [address] Optometry 10/27/24 Li Grande MD 575 [place] [address] Hematology and Oncology 10/27/24 Anselmo Gates MD 10 [facility] [address] [place] [address] Orthopaedic Surgery 10/27/24 Margaret Holman [address] 3rd [place] [address] Cardiology 10/27/24 Herberth Stokes MD 11 [facility] 3rd [place] [address] Gastroenterology 10/27/24 Hilton Palacios MD 15 [facility], [address] [place] [address] Neurology 02/06/25 Aaron Pringle MD [address] [place] [address] 3rd [place] [address] General Surgery 03/07/25 Lori James Registered Nurse 06/15/25 06/15/25 Neelima Raygoza 06/15/25 06/16/25 Ronda Rodríguez [address] [place] [address] [address] [place] [address] Obstetrics and Gynecology 08/02/25 Neelima Raygoza 08/14/25 08/23/25 Neelima Raygoza 08/28/25 08/29/25 Pily Delaney Still CleanerIroner Sock 07/22/24 Elie BRASHER [facility] Psychology 12/29/24 documented as of this encounter
--- OUTSIDE RECORDS SUMMARY | 2025-09-15 20:28 | XMS_ITS | Encounter Summary ---
Author Organization [employer] Address 75 [facility] 7 [place] [address] Care Team Providers Care Public Transit Bus Driver Name Role Phone Shereen Latham MD Primary Care Provider [phone] Sury Benitez Unavailable [phone] Nirali Madrid OD Unavailable Li Grande MD Unavailable [phone] Anselmo Gates MD Unavailable Margaret Holman Unavailable Herberth Stokes MD Unavailable [phone] Hilton Palacios MD Unavailable [phone] Aaron Pringle MD Unavailable [phone] Ronda Rodríguez Unavailable Reason for Visit * Reason Onset Date Comments pt1 09/01/2025 Encounter Details Date Type Department Care Team (Late st Contact Info) Description 09/01/2025 Telephone [facility] MEDICINE 230 [place], [place] [phone] Shereen Latham MD 230 [place], [place] [phone] pt1 Social History Tobacco Use Types Packs/Day [...] Y/N: Yes Provider name or facility name: [facility] [address] [facility] [address] Escort needed: Y/N: No Do you have a wheelchair: Y/N: No If yes- Manual or electric: Visits: 3x a month documented in this encounter Plan of Treatment Upcoming Encounters Date Type Department Care Team (Late st Contact Info) Description 10/02/2025 2:00 PM EST Office Visit [facility] ADULT DENTAL 230 [place] [address] Isa De La Rosa DDS 230 [place] [address] 2025 2:00 PM EST Office Visit [facility] MEDICINE 230 [place] [address] Shereen Latham MD [address] [place] [address] documented as of this encounter Visit Diagnoses Not on filedocumented in this encounter Additional Health Concerns Assessment Noted Time PHQ-9 Depression Total Score: 21 025 11:03 AM EDT documented as of this encounter Care Teams Public Transit Bus Driver Relationship Specialty Start Date End Date Shereen Latham MD [address] [place] [address] PCP - General Family Medicine 11/02/18 Sury Benitez [address] [place] [address] Pulmonary Disease 09/27/24 Nirali Madrid OD 267 [place] [address] Optometry 10/27/24 Li Grande MD [address] [place] [address] Hematology and Oncology 10/27/24 Anselmo Gates MD [address] [place] [address] Orthopaedic Surgery 10/27/24 Margaret Holman [address] [facility] [address] 3rd [place] [address] Cardiology 10/27/24 Herberth Stokes MD 11 [facility] 3rd [place] [address] Gastroenterology 10/27/24 Hilton Palacios MD 15 [facility], [address] [place] [address] Neurology 02/06/25 Aaron Pringle MD 11 [facility] 3rd [place] [address] General Surgery 03/07/25 Ronda Rodríguez [address] [place] [address] [address] [place] [address] Obstetrics and Gynecology 08/02/25 Pily Delaney Protocol ManagerState Game Protector 07/22/24 Elie Vicky [facility] Psychology 12/29/24 documented as of this encounter
--- OUTSIDE RECORDS SUMMARY | 2025-09-15 20:28 | XMS_ITS | Encounter Summary ---
Author Organization [employer] Address 75 [facility] 7t [place] [address] Care Team Providers Care Collection Card Clerk Name Role Phone [place], Shereen NOLASCO Primary Care Provider [phone] Sury Benitez Unavailable [phone] Nirali Madrid OD Unavailable [phone] Li Grande MD Unavailable [phone] Anselmo Gates MD Unavailable Margaret Holman Unavailable Herberth Stokes MD Unavailable [phone] Hilton Palacios MD Unavailable Aaron Pringle MD Unavailable [phone] Ronda Rodríguez Unavailable Encounter Details Date Type Department Care Team (Latest Contact Info) Description 09/13/2025 Travel Social History Tobacco Use Types Packs/Day [...] Description 10/02/2025 2:00 PM EST Office Visit [facility] ADULT DENTAL 230 [place] [address] Isa De La Rosa DDS 230 [place] [address] 2025 2:00 PM EST Office Visit [facility] MEDICINE 230 [place] [address] Shereen Latham MD 230 [place] [address] documented as of this encounter Visit Diagnoses Not on filedocumented in this encounter Additional Health Concerns Assessment Noted Time PHQ-9 Depression Total Score: 21 025 11:03 AM EDT documented as of this encounter Care Teams Collection Card Clerk Relationship Specialty Start Date End Date Shereen Latham MD 230 [place] [address] PCP - General Family Medicine 11/02/18 Sury Benitez [address] [place] [address] [address] [place] [address] Pulmonary Disease 09/27/24 Nirali Madrid OD [address] [place] [address] Optometry 10/27/24 Li Grande MD [address] [place] [address] Hematology and Oncology 10/27/24 Anselmo Gates MD 10 [facility] [address] [place] [address] Orthopaedic Surgery 10/27/24 Margaret Holman 11 [facility] 3rd [place] [address] Cardiology 10/27/24 Herberth Stokes MD 11 [facility] 3rd [place] [address] Gastroenterology 10/27/24 Hilton Palacios MD [address] [place] [address], [address] [place] [address] Neurology 02/06/25 Aaron Pringle MD [address] [place] [address] 3rd [place] [address] General Surgery 03/07/25 Ronda Rodríguez [address] [place] [address] [address] [place] [address] Obstetrics and Gynecology 08/02/25 Pily Delaney Nutritionist Public HealthUrology Nurse 07/22/24 Elie BRASHER [facility] Psychology 12/29/24 documented as of this encounter
--- OUTSIDE RECORDS SUMMARY | 2025-09-15 20:28 | XMS_ITS | Encounter Summary ---
Author Organization [employer] Address 75 [facility] 7 [place] [address] Care Team Providers Care Psychologist Personnel Name Role Phone [place], Shereen NOLASCO Primary Care Provider [phone] Sury Benitez Unavailable [phone] Nirali Madrid OD Unavailable Li Grande MD Unavailable [phone] Anselmo Gates MD Unavailable Margaret Holman Unavailable Herberth Stokes MD Unavailable [phone] Hilton Palacios MD Unavailable Aaron Pringle MD Unavailable [phone] Ronda Rodríguez Unavailable Reason for Visit * Reason Onset Date Comments Results 09/13/2025 Encounter Details Date Type Department Care Team (Late st Contact Info) Description 09/13/2025 Telephone [facility] MEDICINE 230 [place] [address] Keira Escobar, RN 230 [place] [address] Results Social History Tobacco Use Types Packs/Day [...] Telephone Encounter - Keira Escobar RN - 09/13/2025 4:03 PM EST Telephone call placed to pt. Informed magnesium borderline low. Not concerning. Continue magnesium QID. Pt agrees with plan documented in this encounter Plan of Treatment Upcoming Encounters Date Type Department Care Team (Late st Contact Info) Description 10/02/2025 2:00 PM EST Office Visit [facility] ADULT DENTAL 230 [place] [address] Isa De La Rosa, DDS 230 [place] [address] 2025 2:00 PM EST Office Visit [facility] MEDICINE 230 [place] [address] Shereen Latham MD 230 [place] [address] documented as of this encounter Visit Diagnoses Not on filedocumented in this encounter Additional Health Concerns Assessment Noted Time PHQ-9 Depression Total Score: 21 025 11:03 AM EDT documented as of this encounter Care Teams Psychologist Personnel Relationship Specialty Start Date End Date Shereen Latham MD 230 [place] [address] PCP - General Family Medicine 11/02/18 Sury Benitez [address] [place] [address] [address] [place] [address] Pulmonary Disease 09/27/24 Nirali Madrid OD 267 [place] [address] Optometry 10/27/24 Li Grande MD 575 [place] [address] Hematology and Oncology 10/27/24 Anselmo Gates MD [address] [facility] [address] [place] [address] Orthopaedic Surgery 10/27/24 Margaret Holman [address]rd [place] [address] Cardiology 10/27/24 Herberth Stokes MD [address] [facility] [address] [place] [address] Gastroenterology 10/27/24 Hilton Palacios MD [address] [place] [address], [address] [place] [address] Neurology 02/06/25 Aaron Pringle MD [address] [place] [address] General Surgery 03/07/25 Ronda Rodríguez [address] [place] [address] [address] [place] [address] Obstetrics and Gynecology 08/02/25 Pily Delaney Top CoaterTherapist Physical 07/22/24 Elie BRASHER [facility] Psychology 12/29/24 documented as of this encounter
--- OUTSIDE RECORDS SUMMARY | 2025-09-15 20:28 | XMS_ITS | Encounter Summary ---
Author Organization [employer] Address 75 [facility] 7 [place] [address] Care Team Providers Care Bottom Bleacher Name Role Phone Shereen Latham MD Primary Care Provider [phone] Sury Benitez Unavailable [phone] Nirali Madrid OD Unavailable Li Grande MD Unavailable [phone] Anselmo Gates MD Unavailable Margaret Holman Unavailable Herberth Stokes MD Unavailable [phone] Hilton Palacios MD Unavailable [phone] Aaron Pringle MD Unavailable [phone] Ronda Rodríguez Unavailable Reason for Visit * Reason Onset Date Comments chart prep 09/12/2025 Encounter Details Date Type Department Care Team (Late st Contact Info) Description 09/12/2025 Telephone [facility] MEDICINE 230 [place], [place] [phone] Shereen Latham MD 230 [place], [place] [phone] chart prep Social History Tobacco Use Types Packs/Day Years [...] encounter Miscellaneous Notes * Telephone Encounter - Martha Mcqueen [place] - 09/12/2025 10:58 AM EST Chart Prep Labs: done Images: done Screenings: Mammogram Vaccines due: Covid Due, Tdap Due, Flu Due, and Shingles in pharmacy Due Referrals: Completed Overdue care gaps: Oral Health documented in this encounter Plan of Treatment Upcoming Encounters Date Type Department Care Team (Late st Contact Info) Description 10/02/2025 2:00 PM EST Office Visit [facility] ADULT DENTAL [address] [place] [address] Paz-Connor, Isa, DDS 230 [place] [address] 2025 2:00 PM EST Office Visit [facility] MEDICINE [address] [place] [address] Shereen Latham MD [address] [place] [address] documented as of this encounter Visit Diagnoses Not on filedocumented in this encounter Additional Health Concerns Assessment Noted Time PHQ-9 Depression Total Score: 21 025 11:03 AM EDT documented as of this encounter Care Teams Bottom Bleacher Relationship Specialty Start Date End Date Shereen Latham MD 230 [place] [address] PCP - General Family Medicine 11/02/18 Sury Benitez [address] [place] [address] Pulmonary Disease 09/27/24 Nirali Madrid OD [address] [place] [address] Optometry 10/27/24 Li Grande MD [address] [place] [address] Hematology and Oncology 10/27/24 Anselmo Gates MD [address] [place] [address] Orthopaedic Surgery 10/27/24 Margaret Holman [address] 3rd [place] [address] Cardiology 10/27/24 Herberth Stokes MD [address] 3rd [place] [address] Gastroenterology 10/27/24 Hilton Palacios MD 15 [facility], [address] [place] [address] Neurology 02/06/25 Aaron Pringle MD [address] [facility] [address] 3rd [place] [address] General Surgery 03/07/25 Ronda Rodríguez [address] [place] [address] [address] [place] [address] Obstetrics and Gynecology 08/02/25 Pily Delaney Media Arts ProfessorPassport Application Examiner 07/22/24 Elie BRASHER [facility] Psychology 12/29/24 documented as of this encounter
--- OUTSIDE RECORDS SUMMARY | 2025-09-15 20:28 | XMS_ITS | Encounter Summary ---
Author Organization [employer] Address 75 [facility] 7t [place] [address] Care Team Providers Care Drafter Refrigeration Name Role Phone [place], Shereen NOLASCO Primary Care Provider [phone] Nupur Bullock PharmD Unavailable [phone] Sury Benitez Unavailable [phone] Julius, Nirali OD Unavailable Li Grande MD Unavailable [phone] Anselmo Gates MD Unavailable Margaret Holman Unavailable Herberth Stokes MD Unavailable [phone] Hilton Palacios MD Unavailable Aaron Pringle MD Unavailable [phone] Lori James Unavailable Neelima Raygoza Unavailable Ronda Rodríguez Unavailable Neelima Raygoza Unavailable Neeliam Raygoza Unavailable Reason for Referral * Consultation (Routine) - Closed Specialty Diagnoses / Procedures Referred By Contac t Referred To Contact Obstetrics and Gynecology Diagnoses Women's annual routine gynecological examination Stacey Khan MD 230 [place] [address] Phone: tel: fax: [facility] [address] 5th Floor [address] (Main Hospital Entrance) AGUILA Sierra Phone: tel: fax: Referral ID Status Reason Start Date Expiration Date V isits Requested Visits Authorized [id number] Closed Specialty Services Required 01/19/2025 01/19/2026 9 9 Encounter Details Date Type Department Care Team (Late st Contact Info) Description 01/19/2025 Orders Only [facility] MEDICINE [facility] [address] Stacey Khan MD 230 [place] [address] Women's annual routine gynecological examination (Primary Dx) [...] Description 10/02/2025 2:00 PM EST Office Visit [facility] ADULT DENTAL [address] [place] [address] Isa De La Rosa DDS 230 [place] [address] 2025 2:00 PM EST Office Visit [facility] MEDICINE [address] [place] [address] Shereen Latham MD 230 [place] [address] Scheduled Referrals Name Type Priority Associated Diagnoses [...] Sensitivity Troponin I (01/19/2025 4:33 PM EDT) [facility] TROPONIN I HIGH SENSITIVITY 7.8 <3.5 - 17.0 ng/L [facility] Comment:The Henriquez high sens itivity Troponin-I results should beused in conjunction with other diagnostic information suchas ECG, clinical observations and information, and patientsymptoms to aid in the diagnosis of HI. 01/19/2025 4:33 PM EDT 01/19/2025 4:34 PM EDT Generic External Data Provider LAB BLOOD ORDERAB LES Final Result Performing Organization Address [facility] Co de Phone Number [facility] [address] [place] [phone] * B Type Natriuretic Peptide (BNP) (01/19/2025 4:33 PM EDT) [facility] B Type Natriuretic Peptide 22 <100 pg/mL [facility] 01/19/2025 4:33 PM EDT 01/19/2025 4:34 PM EDT Generic External Data Provider LAB BLOOD ORDERAB LES Final Result Performing Organization Address [facility] Co de Phone Number [facility] [address] [place] [phone] * D Dimer High Sensitivity (01/19/2025 4:33 PM EDT) [facility] D Dimer High Sensitivity <150 NG/ML [facility] Comment:D-DIMER HS REFERENCE RANGENote: [...] Provider LAB BLOOD ORDERAB LES Final Result [facility] [address] [place] [address] [phone] documented in this encounter Visit Diagnoses Diagnosis Women's annual routine gynecological examination- Primary documented in this encounter Additional Health Concerns Assessment Noted Time PHQ-9 Depression Total Score: 22 025 10:17 AM EST documented as of this encounter Care Teams Drafter Refrigeration Relationship Specialty Start Date End Date Shereen Latham MD 230 [place] [address] PCP - General Family Medicine 11/02/18 Nupur Bullock PharmD 230 [place] [address] Pharmacist Internal Medicine 08/09/24 05/15/25 Sury Benitez [address] [place] [address] [facility] 103 [place] [address] Pulmonary Disease 09/27/24 Nirali Madrid OD 267 [place] [address] Optometry 10/27/24 Li Grande MD 575 [place] [address] Hematology and Oncology 10/27/24 Anselmo Gates MD [address] [place] [address] Orthopaedic Surgery 10/27/24 Margaret Holman [address] 3rd [place] [address] Cardiology 10/27/24 Herberth Stokes MD [address]rd [place] [address] Gastroenterology 10/27/24 Hilton Palacios MD [address] [place] [address], [address] [place] [address] Neurology 02/06/25 Aaron Pringle MD [address] [place] [address] General Surgery 03/07/25 Lori James Registered Nurse 06/15/25 06/15/25 Neelima Raygoza 06/15/25 06/16/25 Ronda Rodríguez [address] [place] [address] [address] [place] [address] Obstetrics and Gynecology 08/02/25 Neelima Raygoza 08/14/25 08/23/25 Neelima Raygoza 08/28/25 08/29/25 Pily Delaney Radioisotope Production OperatorGyroscopic Engineering Technician 07/22/24 Elie Vicky [facility] Psychology 12/29/24 documented as of this encounter
--- OUTSIDE RECORDS SUMMARY | 2025-09-15 20:29 | XMS_ITS | Encounter Summary ---
Author Organization [employer] Address [address] [place] [address] 7 [place] [address] Care Team Providers Care Client Support Associate Name Role Phone [place], Shereen NOLASCO Primary Care Provider [phone] Sury Benitez Unavailable [phone] Nirali Madrid OD Unavailable Li Grande MD Unavailable [phone] Anselmo Gates MD Unavailable Margaret Holman Unavailable Herberth Stokes MD Unavailable [phone] Hilton Palacios MD Unavailable Aaron Pringle MD Unavailable [phone] Neelima Raygoza Unavailable Ronda Rodríguez Unavailable Neelima Raygoza Unavailable Neelima Raygoza Unavailable Reason for Visit * Reason Onset Date Comments active requested appt 06/16/2025 Encounter Details Date Type Department Care Team ([facility] st Contact Info) Description 06/16/2025 Telephone C ADULT DENTAL [address] [place] [address] Isa De La Rosa DDS [address] [place] [address] active requested appt Social History Tobacco Use [...] 2:00 PM EST Office Visit [facility] ADULT DENTAL [address] [place] [address] Isa De La Rosa DDS [address] [place] [address] 2025 2:00 PM EST Office Visit [facility] MEDICINE [address] [place] [address] Shereen Latham MD [address] [place] [address] documented as of this encounter Visit Diagnoses Not on filedocumented in this encounter Additional Health Concerns Assessment Noted Time PHQ-9 Depression Total Score: 21 025 11:03 AM EDT documented as of this encounter Care Teams Client Support Associate Relationship Specialty Start Date End Date Shereen Latham MD [address] [place] [address] PCP - General Family Medicine 11/02/18 Sury Benitez [address] [place] [address] Dr Yates [address] [place] [address] Pulmonary Disease 09/27/24 Nirali Madrid OD [address] [place] [address] Optometry 10/27/24 Li Grande MD [address] [place] [address] Hematology and Oncology 10/27/24 Anselmo Gates MD [address] [place] [address] Orthopaedic Surgery 10/27/24 Margaret Holman [address] 3rd [place] [address] Cardiology 10/27/24 Herberth Stokes MD [address] [place] [address] Gastroenterology 10/27/24 Hilton Palacios MD [address] [facility] [place] [address] Neurology 02/06/25 Aaron Pringle MD [address] [facility] [address]rd [place] [address] General Surgery 03/07/25 Neelima Raygoza 06/15/25 06/16/25 Ronda Rodríguez [address] [place] [address] [address] [place] [address] Obstetrics and Gynecology 08/02/25 Neelima Raygoza 08/14/25 08/23/25 Neelima Raygoza 08/28/25 08/29/25 Pily Delaney Fire Chief'S AideWeb Site Project Manager 07/22/24 Elie Vicky [facility] Psychology 12/29/24 documented as of this encounter
--- OUTSIDE RECORDS SUMMARY | 2025-09-15 20:29 | XMS_ITS | Encounter Summary ---
Author Organization [employer] Address [address] [place] [address] 7 [place] [address] Care Team Providers Care Water Resources Technical Officer Name Role Phone [place], Shereen NOLASCO Primary Care Provider [phone] Sury Benitez Unavailable Nirali Madrid OD Unavailable iL Grande MD Unavailable [phone] Anselmo Gates MD Unavailable Margaret Holman Unavailable Herberth Stokes MD Unavailable [phone] Hilton Palacios MD Unavailable [phone] Aaron Pringle MD Unavailable [phone] Ronda Rodríguez Unavailable Neelima Raygoza Unavailable Neelima Raygoza Unavailable Reason for Visit * Reason Onset Date Comments rs no show appt 08/15/2025 Encounter Details Date Type Department Care Team (Late st Contact Info) Description 08/15/2025 Telephone [facility] ADULT DENTAL [address] [place] [address] Isa De La Rosa DDS [address] [place] [address] rs no show appt Social History Tobacco [...] the past 12 months, has t he [place], gas, oil or water [employer] threatened to shut off services in your [...] Description 10/02/2025 2:00 PM EST Office Visit [facility] ADULT DENTAL [address] [place] [address] Isa De La Rosa DDS [address] [place] [address] 2025 2:00 PM EST Office Visit [facility] MEDICINE [address] [place] [address] Shereen Lathma MD [address] [place] [address] documented as of this encounter Visit Diagnoses Not on filedocumented in this encounter Additional Health Concerns Assessment Noted Time PHQ-9 Depression Total Score: 21 025 11:03 AM EDT documented as of this encounter Care Teams Water Resources Technical Officer Relationship Specialty Start Date End Date Shereen Latham MD [address] [place] [address] PCP - General Family Medicine 11/02/18 Sury Benitez [address] [place] [address] [place] [address] Pulmonary Disease 09/27/24 Nirali Madrid OD [address] [place] [address] Optometry 10/27/24 Li Grande MD [address] [place] [address] Hematology and Oncology 10/27/24 Anselmo Gates MD [address] [place] [address] Orthopaedic Surgery 10/27/24 Margaret Holman [address] [facility] [address] [place] [address] Cardiology 10/27/24 Herberth Stokes MD [address] [facility] [address] [place] [address] Gastroenterology 10/27/24 Hilton Palacios MD [address] [facility], [address] [place] [address] Neurology 02/06/25 Aaron Pringle MD [address] [facility] [address] [place] [address] General Surgery 03/07/25 Ronda Rodríguez [address] [place] [address] [address] [place] [address] Obstetrics and Gynecology 08/02/25 Neelima Raygoza 08/14/25 08/23/25 Neelima Raygoza 08/28/25 08/29/25 Pily Delaney Cash Grain GrowerBat Carrier 07/22/24 Elie Vicky [facility] Psychology 12/29/24 documented as of this encounter
--- OUTSIDE RECORDS SUMMARY | 2025-09-15 20:29 | XMS_ITS | Clinical Summary ---
Author Organization [facility] Address [address] [facility] [address] [place] [address] Phone Care Team Providers Care Chip Machine Operator Name Role Phone Unavailable Primary Care Provider [...] It is not the complete legal health record.[facility]
--- OUTSIDE RECORDS SUMMARY | 2025-09-15 20:29 | XMS_ITS | Encounter Summary ---
Author Organization [employer] Address [address] [facility] 7t [place] [address] Care Team Providers Care Wood Type Finisher Name Role Phone [place], Shereen NOLASCO Primary Care Provider [phone] Nupur Bullock PharmD Unavailable [phone] Sury Benitez Unavailable [phone] Julius, Nirali OD Unavailable Li Grande MD Unavailable Anselmo Gates MD Unavailable Margaret Holman Unavailable Herberth Stokes MD Unavailable [phone] Hilton Palacios MD Unavailable Aaron Pringle MD Unavailable [phone] Lori James Unavailable Neelima Raygoza Unavailable Ronda Rodríguez Unavailable [phone] Neelima Raygoza Unavailable Star Raygozada Unavailable Reason for Visit * Reason Comments Med Refill Encounter Details Date Type Department Care Team ([facility] st Contact Info) Description 01/17/2025 Refill [facility] [address] [place] [address] Shereen Latham MD [address] [place] [address] Pain Social History Tobacco Use Types Packs/Day [...] Description 10/02/2025 2:00 PM EST Office Visit [facility] ADULT DENTAL [address] [place] [address] Isa De La Rosa, DDS [address] [place] [address] 2025 2:00 PM EST Office Visit [facility] MEDICINE [address] [place] [address] Shereen Latham MD [address] [place] [address] documented as of this encounter Visit Diagnoses Diagnosis Pain Generalized pain documented in this encounter Additional Health Concerns Assessment Noted Time PHQ-9 Depression Total Score: 22 025 10:17 AM EST documented as of this encounter Care Teams Wood Type Finisher Relationship Specialty Start Date End Date Shereen Latham MD [address] [place] [address] PCP - General Family Medicine 11/02/18 Nupur Bullock PharmD [address] [place] [address] Pharmacist Internal Medicine 08/09/24 05/15/25 Sury Benitez [address] [place] [address] [place] [address] [place] [address] Pulmonary Disease 09/27/24 Nirali Madrid OD [address] [place] [address] Optometry 10/27/24 Li Grande MD [address] [place] [address] Hematology and Oncology 10/27/24 Anselmo Gates MD [address] [place] [address] Orthopaedic Surgery 10/27/24 Margaret Holman [address] [facility] [address]rd [place] [address] Cardiology 10/27/24 Herberth Stokes MD 11 [facility] [address]rd [place] [address] Gastroenterology 10/27/24 Hilton Palacios MD [address] [facility], [address] [place] [address] Neurology 02/06/25 Aaron Pringle MD [address] [place] [address] 3[address] [place] [address] General Surgery 03/07/25 Lori James Registered Nurse 06/15/25 06/15/25 Neelima Raygoza 06/15/25 06/16/25 Ronda Rodríguez [address] [place] [address] [address] [place] [address] Obstetrics and Gynecology 08/02/25 Neelima Raygoza 08/14/25 08/23/25 Neelima Raygoza 08/28/25 08/29/25 Pily Delaney Vehicle Check In ClerkBlending Machine Feeder 07/22/24 Elie Vicky [facility] Psychology 12/29/24 documented as of this encounter
== END 2025-09-15 14:26 | disposition home or self-care (01) ==
LOC: HO.HOS 13:54
PROVIDERS: PCP Family Medicine
DX: M65.312 Trigger thumb, left thumb (principal); M65.332 Trigger finger, left middle finger; M65.352 Trigger finger, left little finger
CPT/HCPCS: 99214

== ENCOUNTER → 2025-09-15 13:54 | Outpatient (BNVA) | payer MEDICAID, SELFPAY | PROVIDERS: PCP Family Medicine | DX: M65.312 Trigger thumb, left thumb (principal); M65.332 Trigger finger, left middle finger; M65.352 Trigger finger, left little finger | CPT/HCPCS: 99212 ==

== ENCOUNTER 2025-10-13 03:37 | Emergency (ER) | payer MEDICAID, SELFPAY ==
--- NOTE | ~2025-10-13 | CT_ITS ---
CLINICAL HISTORY: SOB, CP, tachycardic, being tx for breast CA CT angiography chest with contrast. 3D Postprocessing. Comparison: 09/06/2025 Findings: The heart is normal size. RV/LV ratio is normal. Unremarkable thoracic aorta and great vessels. No aneurysm. No acute pulmonary embolus. The visualized thyroid and mediastinum are unremarkable. 1.6 x 0.9 cm lesion in the lower outer quadrant of the left breast. Correlation with any recent mammographic or sonographic rest imaging recommended. There is right middle lobe scar versus subsegmental atelectasis. The visualized upper abdomen is unremarkable. The bones are intact. IMPRESSION: 1. No pulmonary embolus. 2. Indeterminate left breast lesion. Correlation with any recent dedicated breast imaging recommended. This document has been electronically signed by: Juno Solomon MD on 10/13/2025 07:05:45
--- NOTE | 2025-10-13 03:40 | ECG_ITS ---
Test Reason : cp Blood Pressure : */* mmHG Vent. Rate : 119 BPM Atrial Rate : 119 BPM P-R Int : 222 ms QRS Dur : 86 ms QT Int : 322 ms P-R-T Axes : 36 6 114 degrees QTcB Int : 452 ms Sinus tachycardia with 1st degree A-V block Minimal voltage criteria for LVH, may be normal variant ( Vernon product ) Anterior T wave changes could represent ischemia Baseline wander Abnormal ECG When compared with ECG of 25-Aug-2025 12:18, T wave changes noted in anterior leads MD interval has increased T wave inversion now evident in Lateral leads Referred By: Generic ED Physician Electronically Signed By: KENNEDI BOURGEOIS MD
[2025-10-13 03:51] VITALS: BP 106/64; PULSE 119; RESP 18; TEMP 36.7; O2SAT 93
[2025-10-13 04:05] VITALS: BP 106/64; BP 182/98; PULSE 119; PULSE 130; RESP 18; TEMP 36.7; O2SAT 93; O2SAT 97; BMI 26.6
--- NOTE | 2025-10-13 04:21 | ED_ITS ---
HPI - General Adult General Chief complaint: Anxiety Stated complaint: INCR DEPRESSION,SOBER X1Y/RELAPSED 1W AGO Time Seen by Provider: 10/13/25 04:02 Source: patient and EMS Mode of arrival: EMS Limitations: no limitations History of Present Illness ED Provider: Dr. Sury Bustamante HPI narrative: Patient comes to the emergency room complaining of depression, chest pain, shortness of breath. According to the patient, she already has a therapist, patient is not suicidal homicidal, patient states that she does not want to go to detox and is not interested to talk to the care team. Patient is here mostly because she has been depressed and stopped taking all of her medications for about a week, patient is supposed to get radiation for breast cancer every day and skipped the whole week. Patient denies SI or HI. Related Data Home Medications ?Medication ?Instructions ?Recorded ?Confirmed omeprazole 20 mg capsule,delayed 1 cap PO DAILY@0630 1 11/30/20 09/04/25 release thiamine HCl (vitamin B1) 100 mg 1 tab PO DAILY 09/04/25 tablet cholecalciferol (vitamin D3) 25 1 cap PO DAILY 2 08/11/25 mcg (1,000 unit) capsule (Vitamin D3) cetirizine 10 mg tablet 10 mg PO DAILY PRN allergies 04/10/24 09/04/25 albuterol sulfate 90 mcg/actuation 2 puff inhalation Q 4H PRN 07/25/24 09/04/25 aerosol inhaler shortness of breath or wheez ing allopurinol 100 mg tablet 100 mg PO BID 01/19/2509/04 lorazepam 1 mg tablet 1 mg PO DAILY PRN anxiety at tack 06/07/25 09/04/25 multivitamin 1 tab PO DAILY 06/28/2501/24 magnesium oxide 400 mg PO QID 09/04/2509/04 Previous Rx's ?Medication ?Instructions ?Recorded ACL defiance brace #1 ea 07/29/21 losartan 25 mg tablet 25 mg PO BID #60 tabs docusate sodium 100 mg capsule 100 mg PO BEDTIME #90 c aps 06/07/25 hydrocortisone 2.5 % topical cream 1 appl PA BID-QID P RN hemorrhoids 06/07/25 with perineal applicator #30 grams (Proctosol HC) diphenhydramine-zinc acetate 1 1 appl topical BID #28. 3 grams 07/04/25 %-0.1 % topical cream (Benadryl Itch Stopping) furosemide 20 mg tablet (Lasix) 20 mg PO DAILY #30 tab s 09/04/25 albuterol sulfate 2.5 mg/3 mL 2.5 mg (3 mL) inhalation Q4-6H PRN 09/06/25 (0.083 %) solution for nebulization for wheezing #75 m L metoprolol succinate 50 mg 50 mg PO BID #180 tabs 09/03 tablet,extended release 24 hr fluticasone propionate 115 2 puff inhalation Q12H #12 grams 09/25/25 mcg-salmeterol 21 mcg/actuation HFA inhaler (Advair HFA) Allergies Allergy/AdvReac Type Severity Reaction Status Date / Time amoxicillin (AMOXICILLIN) Allergy Intermediate rash, Verified 10/13/25 04:07 rash/itching sulfamethoxazole (From Allergy Intermediate RASH Verified 10/13/25 04:07 BACTRIM) trimethoprim (From BACTRIM) Allergy Intermediate RASH Verified 10/13/25 04:07 hydrocodone (Hydrocodone) Allergy Mild ITCH Verified 10/13/25 04:07 ibuprofen (From Motrin) Allergy Mild UPSET Verified 10/13/25 04:07 STOMACH latex (Latex) Allergy Mild ITCH Verified 10/13/25 04:07 Review of Systems 2 Review of Systems: Constitutional : No Weight loss, No Fever, No Chills, No Night Sweats, No Fatigue, No Malaise ENT/Mouth : No Hearing loss, No Ear Pain, No Nasal Congestion, No Sinus Pain, No Hoarseness, No sore throat, No Rhinorrhea, No Swallowing Difficulty Eyes: No Eye Pain, No Swelling, No Redness, No Foreign Body, No Discharge, No Vision Changes Cardiovascular : Complaining of chest discomfort, shortness of breath, no orthopnea Respiratory : No Cough, No Sputum, No Wheezing, No Smoke Exposure, No Dyspnea Gastrointestinal : No Nausea, No Vomiting, No Diarrhea, No Constipation, No abdominal Pain, No Hematochezia, No Melena Genitourinary : no irregular bleeding, No Dysuria, No Urinary Frequency, No Hematuria, No Urinary Incontinence, No Urgency, No Flank Pain, No Urinary Flow Changes, No Hesitancy Musculoskeletal : No joint pain, No Myalgias, No Joint Swelling Skin : No Skin Lesions, No rash Neuro : No Weakness, No Numbness, No Paresthesias, No Loss of Consciousness, No Dizziness, No Headache Psych : Complaining of anxiety, depression, no SI no HI, admits to alcohol relapse Heme/Lymph: No Bruising, No Bleeding,No Lymphadenopathy Endocrine : No Polyuria, No Polydipsia, No Temperature Intolerance [facility] Past Medical History Medical History Asthma GERD (gastroesophageal reflux disease) CKD (chronic kidney disease) Anemia Cardiomyopathy Gout Pulmonary nodule Arthritis Fibromyalgia Anxiety and depression Lower back pain Panic attack H/O ETOH abuse Breast cancer Hypertension Surgical History Hx of surgical biopsy (07/27/25) History of lumpectomy of left breast (06/28/25) Hx of knee surgery Hx of right mastectomy H/O colonoscopy History of carpal tunnel release Hx of tubal ligation History of breast lump/mass excision H/O: hysterectomy Family History Family History Mother Heart disease Alzheimers disease Father Heart disease Brother Asthma Heart disease Social History Social History Household Members: None Housing: Apartment Housing Other:: 4th floor. No elevator Are you a primary child care sitter to a significant other at home: No Do you presently have visiting nurse or other home services: No Alcohol intake: current Alcohol intake frequency: 3 or more drinks per day Alcohol type: hard liquor Comment: counts correct Patient Tobacco Use Status: Current everyday Tobacco user Tobacco use type: Cigarette Years Smoked: 38YRS Smoked in Last 30 Days: No e-Cigarette/Vaping Use: Never Used Second Hand Smoke Exposure: Yes Use of substances other than those prescribed or required for medical reasons: No Advance Directives: Yes Advance Directives on File: Yes Advance Directives Date on File: 02/11/22 Do you have a plan to hurt others: No Plan service: No Current occupational status: disabled Gender identity: Female Physical Exam ED Exam Exam: Appearance: Alert. Oriented X3. No acute distress. Eyes: Pupils equal, round and reactive to light. ENT: Pharynx normal. Neck: Normal inspection. Neck supple. No lymph nodes noted. No crepitus CVS: Normal heart rate and rhythm. Pulses normal. Normal S1 and S2 Respiratory: No respiratory distress. Breath sounds normal. No Wheezing. No rales Abdomen: Soft and nontender. No rigidity. No distention. Skin: Skin warm and dry. Normal skin color. Normal skin turgor. Extremities: No lower extremity edema. No Lacerations. No Rash Neuro: Oriented X 3. No motor deficit. No sensory deficit. Moving all extremities. No slurred speech. CN 2 through 12 grossly intact Psych: calm, anxious, angry Vital Signs: Vital Signs - 24 hr 10/13/25 03:51 10/13/25 04:05 10/13/25 05:26 Temperature 98.1 F 98.1 F Pulse Rate 119 H 119 H 119 H Respiratory Rate 18 18 18 Blood Pressure 106/64 106/64 Pulse Oximetry 93 93 94 Oxygen Delivery Method Room Air Room Air Room Air 10/13/25 09:23 10/13/25 10:20 Temperature 98.7 F 98.7 F Pulse Rate 102 H 116 H Respiratory Rate 16 15 Blood Pressure 146/74 H 137/77 Pulse Oximetry 95 96 Oxygen Delivery Method Room Air Room Air BMI result Body Mass Index 26.6 Course Course Course Narrative: All of patient's labs and imaging pending. Patient is at high risk for a pulmonary embolism. CT scan has been ordered. As mentioned above, patient admits that she is anxious and depressed but is not interested in talking to Behavioral Health since she already has a therapist. Denies SI or HI. Reevaluation(s) Reevaluation #1: 8:32 AM 10/13/2025 (Dr. Michael Miguel): currently sleeping, CTA negative, ECG without any changes to suspect ACS, initial trop 24, we will trend, ECG with 119 beats per minute T-wave inversion V5 V6, these noted to be new but sinus tachycardia on all prior available ECGs -1, we will repeat EKG 10:46 AM 10/13/2025 (Dr. Michael Miguel): Re-evaluated, ECG with sinus tachycardia without any ST-T changes, cardiac enzymes state flat, discussed with the patient not to drank, she declined detox, has been chest pain-free, not using cocaine see my discharge instructions Medications Administered Discontinued Medications Generic Name Dose Route Start Last Admin Trade Name Lynne PRN Reason Stop Dose Admin Sodium Chloride 1,000 mls @ 999 mls/hr 10/13/25 04:02 10/13/25 05:54 Ns IVCONT 10/13/25 05:02 Infused .Q1H1M ONE Infusion Iohexol 100 ml 10/13/25 05:58 10/13/25 06:05 Iohexol 350 Mg/Ml 100 Ml Infus..Btl IV 10/13/25 05:59 65 ml ONCE ONE Administration Lorazepam 2 mg 10/13/25 04:04 10/13/25 04:38 Lorazepam 1 Mg Tablet PO 10/13/25 04:05 2 mg ONCE ONE Administration Medical Decision Making Medical Decision Making [facility] Narrative: My interpretation of EKG: Normal sinus rhythm, heart rate 119, nonspecific ST-T changes in the lateral leads, no ST segment depression or elevation, QTC 452. -this time, patient states that she does not have any chest pain at all. Only with certain movements. -my interpretation of labs: No significant abnormality patient's hematology, D- dimer negative, chemistry shows a glucose of 192. Alcohol is negative for drugs of abuse, ETOH level is 204 AST and ALT slightly bumped. Patient does not have any abdominal pain. Patient's troponin is 24.9. We will repeat a 2nd troponin. Urinalysis has ketones, likely secondary to drinking alcohol. 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 Detox. At this time, patient declines all of the above. States that she already has a therapist and she is not interested in pursuing detox at this time. Patient is adamant that she is not suicidal homicidal Patient was encouraged to call her oncologist, patient needs to restarted her radiation therapy for treatment of breast cancer. Second troponin pending. Sign-out given to my colleague Dr. Miguel Differential Diagnosis Differential Diagnoses: The differential diagnosis associated with the presentation includes Lab Data [facility] Lab Attestation statement: I reviewed the patient's lab results. 10/13/25 05:07 10/13/25 05:07 Labs: Lab Results 10/13/25 10/13/25 10/13/25 Range/Units 04:30 05:07 05:15 WBC 6.9 (4.8-10.8) X10*3/uL RBC 4.64 (4.20-5.50) X10*6/uL Hgb 13.1 D (12.0-16.0) g/dl Hct 40.2 (37.0-47.0) % MCV 86.6 (80.0-98.0) fL MCH 28.2 (27.0-33.0) pg MCHC 32.6 (31.0-35.0) g/dl RDW 14.9 (11.0-16.0) % Plt Count 298 (160-400) X10*3/uL MPV 9.8 (9.4-12.3) fL Immature Gran % (Auto) 0.3 (0.0-0.4) % Neut % (Auto) 63.8 (45-73) % Lymph % (Auto) 25.7 (20-40) % [place] % (Auto) 7.8 (2-11) % Eos % (Auto) 1.2 (0-4) % Baso % (Auto) 1.2 (0-2) % Lymph # (Auto) 1.8 (1.2-4.9) X10*3/uL [place] # (Auto) 0.5 (0.1-1.2) X10*3/uL Eos # (Auto) 0.1 (0.0-0.4) X10*3/uL Baso # (Auto) 0.1 (0.0-0.2) X10*3/uL Abs Immat Gran (auto) 0.02 (0.00-0.03) X10*3/uL Absolute Neuts (auto) 4.4 (2.0-8.3) x10*3/uL Absolute Nucleated RBC 0.000 (0.0-0.012) X10*3/uL Nucleated RBC % (auto) 0.0 (0.0-0.2) /100WBC PT 11.9 (11.2-13.5) SEC INR 1.0 (0.9-1.1) D-Dimer High Sensitivty 182 NG/ML Sodium 144 (135-145) mmol/L Potassium 3.3 (3.3-5.1) mmol/L Chloride 105 (96-108) mmol/L Carbon Dioxide 20 L (22-29) mmol/L Anion Gap 22 H (12-20) BUN 12 (9-16) mg/dL Creatinine 0.86 (0.5-1.4) mg/dL Estim Creat Clear Calc 82.8 Estimated GFR > 60 Random Glucose 192 H (60-115) mg/dL Calcium 9.3 (8.4-10.2) mg/dL Magnesium 1.6 (1.6-2.6) mg/dL Total Bilirubin 0.3 (0.0-1.0) mg/dL Direct Bilirubin 0.1 (0.0-0.5) mg/dL AST 65 H (5-31) U/L ALT 46 H (0-31) U/L Alkaline Phosphatase 164 H (39-117) U/L Troponin I High Sens 24.9 H D (<3.5-17.0) ng/L Total Protein 7.7 (6.5-8.0) g/dL Albumin 4.6 (3.5-5.0) g/dL Lipase 42 (8-78) U/L Urine Color Yellow Urine Appearance Clear Urine pH 6.0 (5.0-9.0) Ur Specific [place] >= 1.030 H (1.005-1.025) Urine Protein 100 (2+) H (Neg-Trace) mg/dL Urine Glucose (UA) Negative (Negative) mg/dL Urine Ketones 40 (Negative) mg/dL Urine Blood Trace (Negative) Urine Nitrite Negative (Negative) Ur Leukocyte Esterase Negative (Negative) Urine RBC 0-2 (0-2) /HPF Urine WBC 6-10 (0-5) /HPF Ur Squamous Epith Cells >20 (0-2) /HPF Urine Bacteria 1+ (None Seen) Hyaline Casts 0-2 (0-2) /LPF Urine Opiates Screen Not Detected (Not Detect) Ur Buprenorphine Scrn Not Detected (Not Detect) ng/mL Ur Oxycodone Screen Not Detected (Not Detect) ng/mL Urine Methadone Screen Not Detected (Not Detect) ng/mL Urine Fentanyl Screen Not Detected (Not Detect) Ur Barbiturates Screen Not Detected (Not Detect) Ur Phencyclidine Scrn Not Detected (Not Detect) Ur Amphetamines Screen Not Detected (Not Detect) U Benzodiazepines Scrn Not Detected (Not Detect) Urine Cocaine Screen Not Detected (Not Detect) U Marijuana (THC) Screen Not Detected (Not Detect) Ethyl Alcohol 204 mg/dL 10/13/25 Range/Units 07:59 WBC (4.8-10.8) X10*3/uL RBC (4.20-5.50) X10*6/uL Hgb (12.0-16.0) g/dl Hct (37.0-47.0) % MCV (80.0-98.0) fL MCH (27.0-33.0) pg MCHC (31.0-35.0) g/dl RDW (11.0-16.0) % Plt Count (160-400) X10*3/uL MPV (9.4-12.3) fL Immature Gran % (Auto) (0.0-0.4) % Neut % (Auto) (45-73) % Lymph % (Auto) (20-40) % [place] % (Auto) (2-11) % Eos % (Auto) (0-4) % Baso % (Auto) (0-2) % Lymph # (Auto) (1.2-4.9) X10*3/uL [place] # (Auto) (0.1-1.2) X10*3/uL Eos # (Auto) (0.0-0.4) X10*3/uL Baso # (Auto) (0.0-0.2) X10*3/uL Abs Immat Gran (auto) (0.00-0.03) X10*3/uL Absolute Neuts (auto) (2.0-8.3) x10*3/uL Absolute Nucleated RBC (0.0-0.012) X10*3/uL Nucleated RBC % (auto) (0.0-0.2) /100WBC PT (11.2-13.5) SEC INR (0.9-1.1) D-Dimer High Sensitivty NG/ML Sodium (135-145) mmol/L Potassium (3.3-5.1) mmol/L Chloride (96-108) mmol/L Carbon Dioxide (22-29) mmol/L Anion Gap (12-20) BUN (9-16) mg/dL Creatinine (0.5-1.4) mg/dL Estim Creat Clear Calc Estimated GFR Random Glucose (60-115) mg/dL Calcium (8.4-10.2) mg/dL Magnesium (1.6-2.6) mg/dL Total Bilirubin (0.0-1.0) mg/dL Direct Bilirubin (0.0-0.5) mg/dL AST (5-31) U/L ALT (0-31) U/L Alkaline Phosphatase (39-117) U/L Troponin I High Sens 26.3 H (<3.5-17.0) ng/L Total Protein (6.5-8.0) g/dL Albumin (3.5-5.0) g/dL Lipase (8-78) U/L Urine Color Urine Appearance Urine pH (5.0-9.0) Ur Specific [place] (1.005-1.025) Urine Protein (Neg-Trace) mg/dL Urine Glucose (UA) (Negative) mg/dL Urine Ketones (Negative) mg/dL Urine Blood (Negative) Urine Nitrite (Negative) Ur Leukocyte Esterase (Negative) Urine RBC (0-2) /HPF Urine WBC (0-5) /HPF Ur Squamous Epith Cells (0-2) /HPF Urine Bacteria (None Seen) Hyaline Casts (0-2) /LPF Urine Opiates Screen (Not Detect) Ur Buprenorphine Scrn (Not Detect) ng/mL Ur Oxycodone Screen (Not Detect) ng/mL Urine Methadone Screen (Not Detect) ng/mL Urine Fentanyl Screen (Not Detect) Ur Barbiturates Screen (Not Detect) Ur Phencyclidine Scrn (Not Detect) Ur Amphetamines Screen (Not Detect) U Benzodiazepines Scrn (Not Detect) Urine Cocaine Screen (Not Detect) U Marijuana (THC) Screen (Not Detect) Ethyl Alcohol mg/dL Independent Interpretation I performed an independent interpretation of an: CT Scan Radiology Impression Discussion of test interpretation with radiology: I have reviewed the radiologist's reading. Radiologist Impression: The heart is normal size. RV/LV ratio is normal. Unremarkable thoracic aorta and great vessels. No aneurysm. No acute pulmonary embolus. The visualized thyroid and mediastinum are unremarkable. 1.6 x 0.9 cm lesion in the lower outer quadrant of the left breast. Correlation with any recent mammographic or sonographic rest imaging recommended. There is right middle lobe scar versus subsegmental atelectasis. The visualized upper abdomen is unremarkable. The bones are intact. IMPRESSION: 1. No pulmonary embolus. 2. Indeterminate left breast lesion. Correlation with any recent dedicated breast imaging recommended. Critical Care Time Critical Care Time Critical Care Time: Yes Total Critical Care Time: 35 Attestation: I have personally provided critical care time. Time includes review of lab data, radiology results, discussion with consultants, and monitoring for potential decompensation. Intervention performed as documented. Discharge Plan Discharge Clinical Impression: Alcohol intoxication Instructions: Abuse of Alcohol (ED) Additional Instructions: Alcohol use disorder You were seen in the Emergency Department today for treatment of alcohol use disorder.? You may have been given medications to help with your withdrawal symptoms.? Please do not drink alcohol with them. This is very dangerous and can cause respiratory depression or other adverse reactions depending on the medication. we did obtain CAT scan of the chest, trended your cardiac enzymes they were slightly elevated, your liver enzymes are slightly elevated as well, I definitely recommend against drinking alcohol, you did receive fluids, CT chest negative, any other issues concerns come back to the ER If you would like to cut down or stop your alcohol use please consider calling our outpatient Addiction Treatment office:? [facility] (M-F [id number]) [address] [place] [address] You have also been given a list of treatment providers in the area that can assist as well.? If you experience seizures, vomiting blood, black stools, falls, severe headache, chest pain, fevers, trouble breathing, hallucinations or any other concerns you need to call 911 or seek immediate care. Please stay hydrated. Prescriptions: No Action (DME) ACL defiance brace See Rx Instructions .ROUTE .MEDSUPPLY Qty: 1 0RF Rx Instructions: n/a Benadryl Itch Stopping 1-0.1 % cream 1 appl topical BID Qty: 28.3 0RF albuterol sulfate 2.5 mg /3 mL (0.083 %) solution for nebulization 2.5 mg inhalation Q4-6H PRN (Reason: for wheezing) Qty: 75 3RF metoprolol succinate 50 mg tablet extended release 24 hr 50 mg PO BID Qty: 180 3RF fluticasone propion-salmeterol [Advair HFA] 115-21 mcg/actuation HFA aerosol inhaler 2 puff inhalation Q12H Qty: 12 3RF thiamine HCl (vitamin B1) 100 mg tablet 1 tab PO DAILY omeprazole 20 mg capsule,delayed release(DR/EC) 1 cap PO DAILY@0630 cholecalciferol (vitamin D3) [Vitamin D3] 25 mcg (1,000 unit) capsule 1 cap PO DAILY losartan 25 mg Tablet 25 mg PO BID Qty: 60 0RF Protocol: Hold for SBP< HOLD for SBP < : 90 cetirizine 10 mg tablet 10 mg PO DAILY PRN (Reason: allergies) albuterol sulfate 90 mcg/actuation HFA aerosol inhaler 2 puff inhalation Q4H PRN (Reason: shortness of breath or wheezing) allopurinol 100 mg tablet 100 mg PO BID multivitamin Tablet 1 tab PO DAILY lorazepam 1 mg tablet 1 mg PO DAILY PRN (Reason: anxiety attack) docusate sodium 100 mg capsule 100 mg PO BEDTIME Qty: 90 3RF hydrocortisone [Proctosol HC] 2.5 % cream with perineal applicator 1 appl PA BID-QID PRN (Reason: hemorrhoids) Qty: 30 2RF magnesium oxide 400 mg magnesium capsule 400 mg PO QID furosemide [Lasix] 20 mg tablet 20 mg PO DAILY Qty: 30 5RF Rx Instructions: dose reduced Print Language: Italian
--- OUTSIDE RECORDS SUMMARY | 2025-10-13 04:35 | XMS_ITS | Encounter Summary ---
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 Name Role Phone Shereen Latham MD Primary Care Provider [phone] Reason for Visit * Reason Onset Date Comments URI 10/11/2025 See note Encounter Details Date Type Department Care Team (Late st Contact Info) Description 10/11/2025 Telephone [facility] Radiation Oncology [address] [place] [address] Chandrika Coughlin RN Social History Tobacco Use Types Packs/Day Years [...] Progress Notes * Chandrika Coughlin RN - 10/11/2025 10:35 AM EST I called and left message for pt to call me back to see if she tested herself for COVID and what was the result, and to give instructions to wear a mask when she comes in for her RT appointment today. I called pt again and was able to speak with her. She will not be in today she has been dealing with a lot and started drinking again after not drinking for a year she is trying to stop and is also having trouble with depression. Pt also did a COVID test which was negative. Since she has a cough and sore throat I advised to wear a mask when she comes in for treatment tomorrow. I informed pt that I will have Sera HARRELL call her tomorrow to see how she is doing. I tried to have her come in todaybut did not want to come. I advised that it is important not to miss any more treatments. I will let Sushma Caballero SW aware of the above to see if there is anything she could do to help her. documented in this encounter Plan of Treatment Upcoming Encounters Date Type Department Care Team (Late st Contact Info) Description 10/13/2025 2:30 PM EST Appointment [facility] Radiation Oncology [address] [place] [phone] 10/16/2025 2:30 PM EST Appointment [facility] Radiation Oncology [address] [place] [phone] 10/16/2025 2:35 PM EST Appointment [facility] Radiation Oncology [address] [place] [phone] Pal Ureña MD [address] [place] [phone] 10/17/2025 2:30 PM EST Appointment [facility] Radiation Oncology [address] [place] [phone] 10/18/2025 2:30 PM EST Appointment [facility] Radiation Oncology [address] [place] [phone] 10/19/2025 2:30 PM EST Appointment [facility] Radiation Oncology [address] [place] [phone] 10/19/2025 2:35 PM EST Appointment [facility] Radiation Oncology [address] [place] [phone] Pal Ureña MD [address] [place] [phone] 10/20/2025 2:30 PM EST Appointment [facility] Radiation Oncology [address] [place] [phone] 10/20/2025 2:35 PM EST Appointment [facility] Radiation Oncology [address] [place] [phone] Padma Galicia NP [address] [place] [phone] 10/23/2025 2:30 PM EST Appointment [facility] Radiation Oncology [address] [place] [phone] 10/24/2025 2:30 PM EST Appointment [facility] Radiation Oncology [address] [place] [phone] 10/25/2025 11:00 AM EST Appointment [facility] Radiation Oncology [address] [place] [phone] Pal Ureña MD [address] [place] [address] 11/16/2025 2:00 PM EST Procedure visit Orthopedic Surgery - [place] [id number] [phone] Antony Garrett DPM [address] [phone] documented as of this encounter Visit Diagnoses Not on filedocumented in this encounter Care Teams Livestock Breeder Relationship Specialty Start Date End Date [place], MD Shereen [address] [place] [phone] PCP - General 01/13/1996 documented as of this encounter
--- OUTSIDE RECORDS SUMMARY | 2025-10-13 04:35 | XMS_ITS | Encounter Summary ---
Author Organization [facility] Address [address] [place] [address] Care Team Providers Care Tire Inspector Name Role Phone Shereen Latham MD Primary Care Provider [phone]- [phone] Reason for Visit * Reason Comments Follow-up Encounter Details Date Type Department Care Team (Late st Contact Info) Description 10/12/2025 Social Work [facility] Center [address] [place] [phone] [facility] Social History Tobacco Use Types Packs/Day Years [...] Assessment Author No 08/13/2025 3:53 PM EDT Yoandy, S hayna, RN * Do you have serious difficulty [...] documented in this encounter Progress Notes * Tracy Cruz LMSW - 10/12/2025 11:11 AM EST Progress Note: BARBARA contacted patient via phone for ongoing support following a referral from JULIO CESAR Presley from radiation department. SW left vm for patient to offer support. Provided contact information for return call. Sushma Cruz LMSW Natural Foods Clerk . [facility] documented in this encounter Plan of Treatment Upcoming Encounters Date Type Department Care Team (Late st Contact Info) Description 10/13/2025 2:30 PM EST Appointment [facility] Radiation Oncology [address] [place] [phone] 10/16/2025 2:30 PM EST Appointment [facility] Radiation Oncology [address] [place] [phone] 10/16/2025 2:35 PM EST Appointment [facility] Radiation Oncology [address] [place] [phone] Pal Ureña MD [address] [place] [phone] 10/17/2025 2:30 PM EST Appointment [facility] Radiation Oncology [address] [place] [phone] 10/18/2025 2:30 PM EST Appointment [facility] Radiation Oncology [address] [place] [phone] 10/19/2025 2:30 PM EST Appointment [facility] Radiation Oncology [address] [place] [phone] 10/19/2025 2:35 PM EST Appointment [facility] Radiation Oncology [address] [place] [phone] Pal Ureña MD [address] [place] [address] 10/20/2025 2:30 PM EST Appointment [facility] Radiation Oncology [address] [place] [phone] 10/20/2025 2:35 PM EST Appointment [facility] Radiation Oncology [address] [place] [phone] aPdma Galicia NP [address] [place] [address] 10/23/2025 2:30 PM EST Appointment [facility] Radiation Oncology [address] [place] [phone] 10/24/2025 2:30 PM EST Appointment [facility] Radiation Oncology [address] [place] [phone] 10/25/2025 11:00 AM EST Appointment [facility] Radiation Oncology [address] [place] [phone] Pal Ureña MD [address] [place] [phone] 11/16/2025 2:00 PM EST Procedure visit Orthopedic Surgery - [place] [address] [phone] Antony Garrett, SHARA [address] [phone] documented as of this encounter Visit Diagnoses Not on filedocumented in this encounter Care Teams Tire Inspector Relationship Specialty Start Date End Date Shereen Latham MD [address] [place] [phone] PCP - General 01/13/1996 documented as of this encounter
--- OUTSIDE RECORDS SUMMARY | 2025-10-13 04:35 | XMS_ITS ---
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 I recommended a left breast [...] 6 mm in size; margins negative. Cardiomyopathy 04/04/2025 Multiple pulmonary nodules 04/04/2025 Atrial tachycardia 03/01/2025 Overview (08/25/2025): -per note from Margaret [...] 04/21/24 with uric acid 7.9 -Seen by manager supply chain planning Dr. Bernstein 05/11/24 or evaluation of acute gout affecting left foot. -Pt admitted 07/25/24-07/2524 for swelling, pain, and warmth in the right knee. Patient had a low fever (100.3 F) and elevated WBC (57065 cells/uL), CRP, and ESR. Orthopedic surgery consulted [...] daily for prophylaxis -Seen by Dr. Clarke manager supply chain planning 04/19/25 Continue allopurinol 200 mg daily, plan to repeat acid level before next visit and increase allopurinol titrate allopurinol if needed to reach serum uric acid level <6 mg/dL(2020 [place] [employer] guideline for the management of gout: titrate allopurinol in 100 mg increments every 2 to 4 weeks to achieve the desired serum uric acid level, doses greater than 300 mg/day are often needed to reach desired uric acid target). Tubular adenoma 07/12/2024 Overview (08/25/2025): -completed colonoscopy 07/11/24, showed tubular adenoma x 3 (HFpEF) heart failure with preserved ejection fr action 06/29/2024 Overview (08/25/2025): -Echocardiogram done 10/18/2021 had shown EF 30-35%, mild LVH. follow-up after that finding. A stress test at that time was incomplete. -Dx with acute congestive heart failure with reduced EF during admission to [facility] 06/22/24. - She was started on [...] effusion and indeterminate diastolic function -Seen by [facility] Cardiology 08/01/24 : exercise nuclear stress [...] again until 07/2024. Last echo 06/23/2024 during [facility] heart failure admission, showed EF 55-60%, small [...] for transfusion - Iron infusions ordered by Notching Press Operator DR. Grande - She recieved [...] psychological clearance. Stage 3 chronic kidney disease 07/20/2023 Pain in both feet 07/14/2023 Overview [...] had ultrasound sound for abdominal pain at [facility] revealing diffusely echogenic parenchyma with focal sparing [...] spironolactone (Aldactone) 25 MG tablet 11/09/24 -06/20/25 java front end web developer held spironolactone Alcohol use disorder, moderate, dependence 12/12 Overview (08/25/2025): Longstanding, severe olesya drinking with hx admissions and withdrawal. Care complicated by difficulty accepting/comprehending risk. We have many times discussed risks including liver damage, liver failure and the risk of dying if she continues to drink. At times she has been referred to [facility] Recovery but has [...] subsequently declined -Admitted for alcohol detox at [facility] 04/09/24 -reports she is currently not drinking 08/24/24. Encouraged to continue abstinence. 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 -S/p RIGHT mastectomy with sentinel node bx by Dr. [facility] -Adriamycin/Cytoxan based [...] being evaluated for tachycardia and has a rivers and lakes boatman in place. I recommended a left breast [...] Dr. Grande and plan for radiation at [facility] Vitamin D deficiency 12/12/2021 Overview (08/25/2025): Lab Results Component Value Date [id number] 79.4 05/15/2025 [id number] 58.3 06/16/2024 [id number] 106.4 01/04/2024 Atypical glandular cells on cervical Pap smear 1 11/14/2013 Overview (08/25/2025): -Abnormal pap smear January 2011 with 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 Per Dr. Krish Loomis's note from [facility], pt was due for repeat colposcopy in 2011. -Total Vaginal Hysterectomy 08/27/17 ('with MNOICA 2 pathology and negative resection margins'). Per note dated 11/27/17 Dr. Reyes; 'patient to discontinue PAP screening'. -Vaginal pap NILM HPV negative 08/2018, per not no further paps indicated Severe episode of recurrent major depressive disorder, with psychotic features 04/19/2014 Overview (08/25/2025): [place]. Has appt. 12/30/24. Had intake for psychiatry [...] as pharmacomtherapy, [facility] smoking cessation group, and [facility] pharmacy smoking cessation clinic Discussed USPSTF [...] node. No change. Ancillary findings as discussed. Current Treatment and Therapy Plans No current plan information found. Past Treatment and Therapy Plans No past plan information found. Current Radiation Episodes * Radiation Therapy: BreastOverview* First Treatment Date Latest Treatment Date Treatment Site Technique Goal Episode Provider 09/21/2025 10/06/2025 Breast Curative * Linked Problems Treatment Courses* Course 1 09/21/2025 - 10/06/2025 Treatment Sites Treatment Period Fraction Dose Fractions Total Dose left breast 09/21/2025 - 10/06/2025 267 / 267 cGy 2,670 / 4,272 cGy
--- OUTSIDE RECORDS SUMMARY | 2025-10-13 04:35 | XMS_ITS | Encounter Summary ---
Author Organization [facility] Address [address] [place] [address] Care Team Providers Care Cable Tool Operator Name Role Phone Shereen Latham MD Primary Care Provider [phone]- [phone] Reason for Visit * Reason Onset Date Comments sickness 10/10/2025 Encounter Details Date Type Department Care Team (Late st Contact Info) Description 10/10/2025 Telephone [facility] Radiation Oncology [address] [place] [phone] Sera Valero, JULIO CESAR Social History Tobacco Use Types Packs/Day Years [...] documented in this encounter Progress Notes * Sera Valero RN - 10/10/2025 8:59 AM EST T/C to pt to see how she was feeling and if she will be in today. Pt reports that she is still feeling very poorly with headache, sinus pressure, cough, and sore throat. Pt was not able to test for covid yesterday but states that her CLAIMS EXAMINER is bringing her a test today. Red pt test for covid and call tomorrow to let this clinic know if she is coming in or not. Pt verbalized understanding. [facility] staff and Dr. Ureña aware. documented in this encounter Plan of Treatment Upcoming Encounters Date Type Department Care Team (Late st Contact Info) Description 10/13/2025 2:30 PM EST Appointment [facility] Radiation Oncology [address] [place] [phone] 10/16/2025 2:30 PM EST Appointment [facility] Radiation Oncology [address] [place] [phone] 10/16/2025 2:35 PM EST Appointment [facility] Radiation Oncology [address] [place] [phone] Pal Ureña MD [address] [place] [phone] 10/17/2025 2:30 PM EST Appointment [facility] Radiation Oncology [address] [place] [phone] 10/18/2025 2:30 PM EST Appointment [facility] Radiation Oncology [address] [place] [phone] 10/19/2025 2:30 PM EST Appointment [facility] Radiation Oncology [address] [place] [phone] 10/19/2025 2:35 PM EST Appointment [facility] Radiation Oncology [address] [place] [phone] Pal Ureña MD [address] [place] [phone] 10/20/2025 2:30 PM EST Appointment [facility] Radiation Oncology [address] [place] [phone] 10/20/2025 2:35 PM EST Appointment [facility] Radiation Oncology [address] [place] [phone] Padma Galicia NP [address] [place] [phone] 10/23/2025 2:30 PM EST Appointment [facility] Radiation Oncology [address] [place] [phone] 10/24/2025 2:30 PM EST Appointment [facility] Radiation Oncology [address] [place] [phone] 10/25/2025 11:00 AM EST Appointment [facility] Radiation Oncology [address] [place] [phone] Pal Ureña MD [address] [place] [phone] 11/16/2025 2:00 PM EST Procedure visit Orthopedic Surgery [facility] [address] [phone] Antony Garrett, DPWilmar 175 [facility] [address] [place] [address] documented as of this encounter Visit Diagnoses Not on filedocumented in this encounter Care Teams Cable Tool Operator Relationship Specialty Start Date End Date Noa, MD Shereen [address] [facility] [address] [place] [phone] PCP - General 01/13/1996 documented as of this encounter
--- OUTSIDE RECORDS SUMMARY | 2025-10-13 04:35 | XMS_ITS | Clinical Summary ---
Author Organization [facility] Address [address] [facility] [address] [place] [phone] Phone Care Team Providers Care Port Purser Name Role Phone Unavailable Primary Care Provider [...] It is not the complete legal health record.[facility]
--- OUTSIDE RECORDS SUMMARY | 2025-10-13 04:35 | XMS_ITS | Clinical Summary ---
Author Organization [address] [facility] Address [address] [place] [address] Phone Care Team Providers Care Cargo Tank Mechanic Name Role Phone Shereen Latham MD Primary Care Provider [phone] Allergies Active Allergy Reactions Criticality Noted Date [...] 04/21/24 with uric acid 7.9 -Seen by content specialist Dr. Bernstein 05/11/24 or evaluation of acute gout affecting left foot. -Pt admitted 07/25/24-07/2524 for swelling, pain, and warmth in the right knee. Patient had a low fever (100.3 F) and elevated WBC (39578 cells/uL), CRP, and ESR. Orthopedic surgery consulted [...] daily for prophylaxis -Seen by Dr. Clarke content specialist 04/19/25 Continue allopurinol 200 mg daily, plan [...] failure with reduced EF during admission to [facility] 06/22/24. - She was started [...] effusion and indeterminate diastolic function -Seen by [facility] Cardiology 08/01/24 : exercise nuclear [...] again until 07/2024. Last echo 06/23/2024 during [facility] heart failure admission, showed EF 55-60%, small [...] for transfusion - Iron infusions ordered by Seconds Handler DR. Grande - She recieved two sessions [...] had ultrasound sound for abdominal pain at [facility] revealing diffusely echogenic parenchyma with focal [...] spironolactone (Aldactone) 25 MG tablet 11/09/24 -06/20/25 personalized living manager held spironolactone Alcohol use disorder, moderate, dependence 12/12 Overview (08/25/2025): Longstanding, severe olesya drinking with hx admissions and withdrawal. Care complicated by difficulty accepting/comprehending risk. We have many times discussed risks including liver damage, liver failure and the risk of dying if she continues to drink. At times she has been referred to [facility] but [...] subsequently declined -Admitted for alcohol detox at [facility] 04/09/24 -reports she is currently [...] with sentinel node bx by Dr. [facility] -Adriamycin/Cytoxan based chemotherapy started Oct, completed [...] finding -biopsy with Dr. Fox done 03/06/25, [facility], left, stereotactic core biopsy: -Minute focus [...] Dr. 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 Per Dr. Krish Loomis's note from [facility] SCHEDULE ANNOUNC[facility], pt was due for repeat colposcopy in 2011. -Total Vaginal Hysterectomy 08/27/17 ('with MONICA 2 pathology and negative resection margins'). Per note dated 11/27/17 Dr. Reyse; 'patient to discontinue PAP screening'. -Vaginal pap NILM HPV negative 08/2018, per not no further paps indicated Severe episode of recurrent major depressive disorder, with psychotic features 04/19/2014 Overview (08/25/2025): -has therapist in [place]. Has appt. 12/30/24. Had intake for psychiatry [...] pharmacomtherapy, [facility] smoking cessation group, and [facility] pharmacy smoking cessation clinic Discussed USPSTF [...] Encounters Date Type Department Care Team Description 10/12/2025 Social Work [facility] Infusion [facility] [address] [phone] Tracy Cruz LMSW 10/11/2025 Telephone [facility] Radiation Oncology [address] [place] [phone] Chandrika Coughlin RN 10/10/2025 Telephone [facility] Radiation Oncology [address] [place] [phone] Sera Valero, JULIO CESAR 10/06/2025 2:20 PM EST - 10/06/2025 11:59 PM EST Hospital Encounter [facility] Radiation Oncology [address] [place] [phone] Discharge Disposition: Home or Self Care 10/06/2025 11:49 AM EST - 10/06/2025 11:59 PM EST Hospital Encounter [facility] Radiation Oncology [address] [place] [phone] Discharge Disposition: Home or Self Care 10/05/2025 2:09 PM EST - 10/05/2025 11:59 PM EST Hospital Encounter [facility] Radiation Oncology [address] [place] [phone] Discharge Disposition: Home or Self Care 10/04/2025 1:34 PM EST - 10/04/2025 11:59 PM EST Hospital Encounter [facility] Radiation Oncology [address] [place] [phone] Discharge Disposition: Home or Self Care 10/04/2025 12:55 PM EST - 10/04/2025 11:59 PM EST Hospital Encounter [facility] Radiation Oncology [address] [place] [phone] Pal Ureña MD Discharge Disposition: Home or Self Care 10/03/2025 2:30 PM EST - 10/03/2025 11:59 PM EST Hospital Encounter [facility] Radiation Oncology [address] [place] [phone] Discharge Disposition: Home or Self Care 10/02/2025 2:30 PM EST - 10/02/2025 11:59 PM EST Hospital Encounter [facility] Radiation Oncology [address] [place] [phone] Pal Ureña MD Discharge Disposition: Home or Self Care 10/02/2025 2:14 PM EST - 10/02/2025 11:59 PM EST Hospital Encounter [facility] Radiation Oncology [address] [place] [phone] Discharge Disposition: Home or Self Care 09/27/2025 2:09 PM EST - 09/27/2025 11:59 PM EST Hospital Encounter [facility] Radiation Oncology [address] [place] [phone] Discharge Disposition: Home or Self Care 09/26/2025 2:14 PM EST - 09/26/2025 11:59 PM EST Hospital Encounter [facility] Radiation Oncology [address] [place] [phone] Discharge Disposition: Home or Self Care 09/25/2025 2:33 PM EST - 09/25/2025 11:59 PM EST Hospital Encounter [facility] Radiation Oncology [address] [place] [phone] Nain Aldana MD Malignant neoplasm of upper-outer quadrant of left breast in female, estrogen receptor positive (CMS/HCC V24, CMS/HCC V28) (Primary Dx) Discharge Disposition: Home or Self Care 09/25/2025 2:22 PM EST - 09/25/2025 11:59 PM EST Hospital Encounter [facility] Radiation Oncology [address] [place] [phone] Discharge Disposition: Home or Self Care 09/22/2025 2:27 PM EST - 09/22/2025 11:59 PM EST Hospital Encounter [facility] Radiation Oncology [address] [place] [phone] Discharge Disposition: Home or Self Care 09/22/2025 Social Work [facility] [address] [place] [phone] Tracy Cruz LMSW 09/21/2025 2:38 PM EST - 09/21/2025 11:59 PM EST Hospital Encounter [facility] Radiation Oncology [address] [place] [phone] Pal Ureña MD Discharge Disposition: Home or Self Care 09/21/2025 2:20 PM EST - 09/21/2025 11:59 PM EST Hospital Encounter [facility] Radiation Oncology [address] [place] [phone] Discharge Disposition: Home or Self Care 09/15/2025 8:09 AM EST - 09/15/2025 11:59 PM EST Hospital Encounter [facility] Radiation Oncology [address] [place] [phone] Discharge Disposition: Home or Self Care 09/13/2025 1:00 PM EST - 09/13/2025 11:59 PM EST Hospital Encounter [facility] Radiation Oncology [address] [place] [phone] Pal Ureña MD Malignant neoplasm of upper-outer quadrant of left breast in female, estrogen receptor positive (CMS/HCC V24, CMS/HCC V28) (Primary Dx) Discharge Disposition: Home or Self Care 09/13/2025 11:55 AM EST - 09/13/2025 11:59 PM EST Hospital Encounter [facility] Radiation Oncology [address] [place] [phone] Malignant neoplasm of upper-outer quadrant of left breast in female, estrogen receptor positive (CMS/HCC V24, CMS/HCC V28) (Primary Dx) Discharge Disposition: Home or Self Care 09/06/2025 Telephone [facility] Hematology Oncology [address] [place] [phone] Mouna Tobin MA 08/31/2025 11:56 AM EDT - 08/31/2025 11:59 PM EDT Hospital Encounter [facility] Radiation Oncology [address] [place] [phone] Pal Ureña MD Malignant neoplasm of upper-outer quadrant of left breast in female, estrogen receptor positive (CMS/HCC V24, CMS/HCC V28) (Primary Dx) Discharge Disposition: Home or Self Care 08/31/2025 11:56 AM EDT - 08/31/2025 11:59 PM EDT Hospital Encounter [facility] Radiation Oncology [address] [place] [phone] Discharge Disposition: Home or Self Care 08/24/2025 1:00 PM EDT Consult Orthopedic Surgery - [facility] [address] [facility] [address] [place] [phone] Antony Garrett, SHARA Pain in both feet (Primary Dx); Lumbosacral radiculopathy; Metatarsalgia of left foot; Ingrown right big toenail 08/24/2025 Telephone [facility] Radiation Oncology [address] [place] [phone] Micheline Sosa MA 08/13/2025 2:30 PM EDT - 08/13/2025 7:19 PM EDT Emergency [facility] Emergency [address] [place] [phone] Lawrence Han MD Chest pain, unspecified type (Primary Dx); Shortness of breath Discharge Disposition: Left Against Medical Advice 08/10/2025 Telephone [facility] Radiation Oncology [address] [place] [phone] Micheline Sosa MA from Last 3 Months Medical History Medical History Date Comments CHF (congestive heart failure) ([facility] V24, [facility] V28) Hypertension Anxiety Depression Social History Tobacco [...] Info) Description 10/13/2025 2:30 PM EST Appointment [facility] Radiation Oncology [address] [place] [phone] 10/16/2025 2:30 PM EST Appointment [facility] Radiation Oncology [address] [place] [phone] 10/16/2025 2:35 PM EST Appointment [facility] Radiation Oncology [address] [place] [phone] Pal Ureña MD [address] [place] [phone] 10/17/2025 2:30 PM EST Appointment [facility] Radiation Oncology [address] [place] [phone] 10/18/2025 2:30 PM EST Appointment [facility] Radiation Oncology [address] [place] [phone] 10/19/2025 2:30 PM EST Appointment [facility] Radiation Oncology [address] [place] [phone] 10/19/2025 2:35 PM EST Appointment [facility] Radiation Oncology [address] [place] [phone] Pal Ureña MD [address] [place] [address] 10/20/2025 2:30 PM EST Appointment [facility] Radiation Oncology [address] [place] [phone] 10/20/2025 2:35 PM EST Appointment [facility] Radiation Oncology [address] [place] [phone] Padma Galicia NP [address] [place] [address] 10/23/2025 2:30 PM EST Appointment [facility] Radiation Oncology [address] [place] [phone] 10/24/2025 2:30 PM EST Appointment [facility] Radiation Oncology [address] [place] [phone] 10/25/2025 11:00 AM EST Appointment [facility] Radiation Oncology [address] [place] [phone] Pal Ureña MD [address] [place] [address] 11/16/2025 2:00 PM EST Procedure visit Orthopedic Surgery - [facility] [address] [phone] Antony Garrett DPM [address] [phone] Health Maintenance Due Date Last Done Comments Breast Cancer Screening 1973 Non-Opioid Controlled Substance Agreement 1973 Zoster Vaccines (1 of 2) 1992 [...] 12/30/2024 06/29/2024 Influenza Vaccine (#1) 2025 09/06/2015 Drug Screen 02/11/2026 08/13/2025 Hypertension/CHF/CAD Annual BMP Blood Test 08/25/2026 08/25/2025, [...] Procedure Name Priority Date/Time Associated Diagnosis Comments RAD ONC MSQ TREATMENT SUMMARY Routine 10/06/2025 2:35 PM EST RAD ONC MSQ TREATMENT SUMMARY Routine 10/05/2025 2:31 PM EST RAD ONC MSQ TREATMENT SUMMARY Routine 10/04/2025 1:47 PM EST RAD ONC MSQ TREATMENT SUMMARY Routine 10/03/2025 2:56 PM EST RAD ONC MSQ TREATMENT SUMMARY Routine 10/02/2025 2:30 PM EST RAD ONC MSQ TREATMENT SUMMARY Routine 09/27/2025 2:19 PM EST RAD ONC MSQ TREATMENT SUMMARY Routine 09/26/2025 2:30 PM EST RAD ONC MSQ TREATMENT SUMMARY Routine 09/25/2025 2:33 PM EST RAD ONC MSQ TREATMENT SUMMARY Routine 09/22/2025 2:46 PM EST RAD ONC MSQ TREATMENT SUMMARY Routine 09/21/2025 2:38 PM EST ECG ANNOTATED 08/15/2025 XR CHEST 2 VIEWS [...] EDT from Last 3 Months Results * Rad Onc Msq Treatment Summary (10/06/2025 2:35 PM EST) Treatment Site left breast MOS AIQ RADIATION ONCOLOGY Course Number 1 MOSAIQ RADIATION ONCOLOGY Prescribed Fractional Dose 267 cGray MOSAIQ RADIATION ONCOLOGY Prescribed Total Dose 4,272 cGray MOSAIQ RADIATION ONCOLOGY Actual Fractions Delivered 10 MOSAIQ RADIATION ONCOLOGY Actual Session Delivered Dose 267 cGray MOSAIQ RADIATION ONCOLOGY Actual Total Dose 2,670 cGray MOSAIQ RADIATION ONCOLOGY Prescribed Technique Tangents -DIBH MOSAIQ RADIATION ONCOLOGY Elapsed Days 15 MOSAIQ RADIATION ONCOLOGY Start Date 09/21/2025 MOSAIQ RADIATION ONCOLOGY Last Date 10/06/2025 MOSAIQ RADIATION ONCOLOGY Prescribed Number of Fractions 16 MOSAIQ RADIATION ONCOLOGY 10/06/2025 2:35 PM EST Physician Radiation Oncology RADIATION ONCOLO GY ORDERABLES Final Result MOSAIQ RADIATION ONCOLOGY * Rad Onc Msq Treatment Summary (10/05/2025 2:31 PM EST) Treatment Site left breast MOS AIQ RADIATION ONCOLOGY Course Number 1 MOSAIQ RADIATION ONCOLOGY Prescribed Fractional Dose 267 cGray MOSAIQ RADIATION ONCOLOGY Prescribed Total Dose 4,272 cGray MOSAIQ RADIATION ONCOLOGY Actual Fractions Delivered 9 MOSAIQ RADIATION ONCOLOGY Actual Session Delivered Dose 267 cGray MOSAIQ RADIATION ONCOLOGY Actual Total Dose 2,403 cGray MOSAIQ RADIATION ONCOLOGY Prescribed Technique Tangents -DIBH MOSAIQ RADIATION ONCOLOGY Elapsed Days 14 MOSAIQ RADIATION ONCOLOGY Start Date 09/21/2025 MOSAIQ RADIATION ONCOLOGY Last Date 10/05/2025 MOSAIQ RADIATION ONCOLOGY Prescribed Number of Fractions 16 MOSAIQ RADIATION ONCOLOGY 10/05/2025 2:31 PM EST Physician Radiation Oncology RADIATION ONCJOSSELIN GY ORDERABLES Final Result MOSAIQ RADIATION ONCOLOGY * Rad Onc Msq Treatment Summary (10/04/2025 1:47 PM EST) Treatment Site left breast MOS AIQ RADIATION ONCOLOGY Course Number 1 MOSAIQ RADIATION ONCOLOGY Prescribed Fractional Dose 267 cGray MOSAIQ RADIATION ONCOLOGY Prescribed Total Dose 4,272 cGray MOSAIQ RADIATION ONCOLOGY Actual Fractions Delivered 8 MOSAIQ RADIATION ONCOLOGY Actual Session Delivered Dose 267 cGray MOSAIQ RADIATION ONCOLOGY Actual Total Dose 2,136 cGray MOSAIQ RADIATION ONCOLOGY Prescribed Technique Tangents -DIBH MOSAIQ RADIATION ONCOLOGY Elapsed Days 13 MOSAIQ RADIATION ONCOLOGY Start Date 09/21/2025 MOSAIQ RADIATION ONCOLOGY Last Date 10/04/2025 MOSAIQ RADIATION ONCOLOGY Prescribed Number of Fractions 16 MOSAIQ RADIATION ONCOLOGY 10/04/2025 1:47 PM EST Physician Radiation Oncology RADIATION ONCJOSSELIN GY ORDERABLES Final Result MOSAIQ RADIATION ONCOLOGY * Rad Onc Msq Treatment Summary (10/03/2025 2:56 PM EST) Treatment Site left breast MOS AIQ RADIATION ONCOLOGY Course Number 1 MOSAIQ RADIATION ONCOLOGY Prescribed Fractional Dose 267 cGray MOSAIQ RADIATION ONCOLOGY Prescribed Total Dose 4,272 cGray MOSAIQ RADIATION ONCOLOGY Actual Fractions Delivered 7 MOSAIQ RADIATION ONCOLOGY Actual Session Delivered Dose 267 cGray MOSAIQ RADIATION ONCOLOGY Actual Total Dose 1,869 cGray MOSAIQ RADIATION ONCOLOGY Prescribed Technique Tangents -DIBH MOSAIQ RADIATION ONCOLOGY Elapsed Days 12 MOSAIQ RADIATION ONCOLOGY Start Date 09/21/2025 MOSAIQ RADIATION ONCOLOGY Last Date 10/03/2025 MOSAIQ RADIATION ONCOLOGY Prescribed Number of Fractions 16 MOSAIQ RADIATION ONCOLOGY 10/03/2025 2:56 PM EST Physician Radiation Oncology RADIATION ONCJOSSELIN GY ORDERABLES Final Result MOSAIQ RADIATION ONCOLOGY * Rad Onc Msq Treatment Summary (10/02/2025 2:30 PM EST) Treatment Site left breast MOS AIQ RADIATION ONCOLOGY Course Number 1 MOSAIQ RADIATION ONCOLOGY Prescribed Fractional Dose 267 cGray MOSAIQ RADIATION ONCOLOGY Prescribed Total Dose 4,272 cGray MOSAIQ RADIATION ONCOLOGY Actual Fractions Delivered 6 MOSAIQ RADIATION ONCOLOGY Actual Session Delivered Dose 267 cGray MOSAIQ RADIATION ONCOLOGY Actual Total Dose 1,602 cGray MOSAIQ RADIATION ONCOLOGY Prescribed Technique Tangents -DIBH MOSAIQ RADIATION ONCOLOGY Elapsed Days 11 MOSAIQ RADIATION ONCOLOGY Start Date 09/21/2025 MOSAIQ RADIATION ONCOLOGY Last Date 10/02/2025 MOSAIQ RADIATION ONCOLOGY Prescribed Number of Fractions 16 MOSAIQ RADIATION ONCOLOGY 10/02/2025 2:30 PM EST Physician Radiation Oncology RADIATION ONCJOSSELIN GY ORDERABLES Final Result Performing Organization Address City/[facility]/ZIP Co de Phone Number MOSAIQ RADIATION ONCOLOGY * Rad Onc Msq Treatment Summary (09/27/2025 2:19 PM EST) Treatment Site left breast MOS AIQ RADIATION ONCOLOGY Course Number 1 MOSAIQ RADIATION ONCOLOGY Prescribed Fractional Dose 267 cGray MOSAIQ RADIATION ONCOLOGY Prescribed Total Dose 4,272 cGray MOSAIQ RADIATION ONCOLOGY Actual Fractions Delivered 5 MOSAIQ RADIATION ONCOLOGY Actual Session Delivered Dose 267 cGray MOSAIQ RADIATION ONCOLOGY Actual Total Dose 1,335 cGray MOSAIQ RADIATION ONCOLOGY Prescribed Technique Tangents -DIBH MOSAIQ RADIATION ONCOLOGY Elapsed Days 6 MOSAIQ RADIATION ONCOLOGY Start Date 09/21/2025 MOSAIQ RADIATION ONCOLOGY Last Date 09/27/2025 MOSAIQ RADIATION ONCOLOGY Prescribed Number of Fractions 16 MOSAIQ RADIATION ONCOLOGY 09/27/2025 2:19 PM EST Physician Radiation Oncology RADIATION ONCOLO GY ORDERABLES Final Result MOSAIQ RADIATION ONCOLOGY * Rad Onc Msq Treatment Summary (09/26/2025 2:30 PM EST) Treatment Site left breast MOS AIQ RADIATION ONCOLOGY Course Number 1 MOSAIQ RADIATION ONCOLOGY Prescribed Fractional Dose 267 cGray MOSAIQ RADIATION ONCOLOGY Prescribed Total Dose 4,272 cGray MOSAIQ RADIATION ONCOLOGY Actual Fractions Delivered 4 MOSAIQ RADIATION ONCOLOGY Actual Session Delivered Dose 267 cGray MOSAIQ RADIATION ONCOLOGY Actual Total Dose 1,068 cGray MOSAIQ RADIATION ONCOLOGY Prescribed Technique Tangents -DIBH MOSAIQ RADIATION ONCOLOGY Elapsed Days 5 MOSAIQ RADIATION ONCOLOGY Start Date 09/21/2025 MOSAIQ RADIATION ONCOLOGY Last Date 09/26/2025 MOSAIQ RADIATION ONCOLOGY Prescribed Number of Fractions 16 MOSAIQ RADIATION ONCOLOGY 09/26/2025 2:30 PM EST Physician Radiation Oncology RADIATION ONCOLO GY ORDERABLES Final Result MOSAIQ RADIATION ONCOLOGY * Rad Onc Msq Treatment Summary (09/25/2025 2:33 PM EST) Treatment Site left breast MOS AIQ RADIATION ONCOLOGY Course Number 1 MOSAIQ RADIATION ONCOLOGY Prescribed Fractional Dose 267 cGray MOSAIQ RADIATION ONCOLOGY Prescribed Total Dose 4,272 cGray MOSAIQ RADIATION ONCOLOGY Actual Fractions Delivered 3 MOSAIQ RADIATION ONCOLOGY Actual Session Delivered Dose 267 cGray MOSAIQ RADIATION ONCOLOGY Actual Total Dose 801 cGray MOSAIQ RADIATION ONCOLOGY Prescribed Technique Tangents -DIBH MOSAIQ RADIATION ONCOLOGY Elapsed Days 4 MOSAIQ RADIATION ONCOLOGY Start Date 09/21/2025 MOSAIQ RADIATION ONCOLOGY Last Date 09/25/2025 MOSAIQ RADIATION ONCOLOGY Prescribed Number of Fractions 16 MOSAIQ RADIATION ONCOLOGY 09/25/2025 2:33 PM EST Physician Radiation Oncology RADIATION ONCOLO GY ORDERABLES Final Result MOSAIQ RADIATION ONCOLOGY * Rad Onc Msq Treatment Summary (09/22/2025 2:46 PM EST) Treatment Site left breast MOS AIQ RADIATION ONCOLOGY Course Number 1 MOSAIQ RADIATION ONCOLOGY Prescribed Fractional Dose 267 cGray MOSAIQ RADIATION ONCOLOGY Prescribed Total Dose 4,272 cGray MOSAIQ RADIATION ONCOLOGY Actual Fractions Delivered 2 MOSAIQ RADIATION ONCOLOGY Actual Session Delivered Dose 267 cGray MOSAIQ RADIATION ONCOLOGY Actual Total Dose 534 cGray MOSAIQ RADIATION ONCOLOGY Prescribed Technique Tangents -DIBH MOSAIQ RADIATION ONCOLOGY Elapsed Days 1 MOSAIQ RADIATION ONCOLOGY Start Date 09/21/2025 MOSAIQ RADIATION ONCOLOGY Last Date 09/22/2025 MOSAIQ RADIATION ONCOLOGY Prescribed Number of Fractions 16 MOSAIQ RADIATION ONCOLOGY 09/22/2025 2:46 PM EST Physician Radiation Oncology RADIATION ONCOLO GY ORDERABLES Final Result MOSAIQ RADIATION ONCOLOGY * Rad Onc Msq Treatment Summary (09/21/2025 2:38 PM EST) Treatment Site left breast MOS AIQ RADIATION ONCOLOGY Course Number 1 MOSAIQ RADIATION ONCOLOGY Prescribed Fractional Dose 267 cGray MOSAIQ RADIATION ONCOLOGY Prescribed Total Dose 4,272 cGray MOSAIQ RADIATION ONCOLOGY Actual Fractions Delivered 1 MOSAIQ RADIATION ONCOLOGY Actual Session Delivered Dose 267 cGray MOSAIQ RADIATION ONCOLOGY Actual Total Dose 267 cGray MOSAIQ RADIATION ONCOLOGY Prescribed Technique Tangents -DIBH MOSAIQ RADIATION ONCOLOGY Elapsed Days 0 MOSAIQ RADIATION ONCOLOGY Start Date 09/21/2025 MOSAIQ RADIATION ONCOLOGY Last Date 09/21/2025 MOSAIQ RADIATION ONCOLOGY Prescribed Number of Fractions 16 MOSAIQ RADIATION ONCOLOGY 09/21/2025 2:38 PM EST Physician Radiation Oncology RADIATION ONCOLO GY ORDERABLES Final Result MOSAIQ RADIATION ONCOLOGY * ECG-Annotated (08/15/2025) us Provider Onbase ECG [...] Signed Date: 08/13/2025 16:29 ET Workstation ID: [id number] Transcribed By: Self Edit Transcribed Date: 08/13/2025 [...] Signed Date: 08/13/2025 16:29 ET Workstation ID: [id number] Transcribed By: Self Edit Transcribed Date: 08/13/2025 16:27 ET Lawrence Han MD IMG XR PROCEDURES Final Result * Urinalysis with reflex microscopic (08/13/2025 3:50 PM EDT) Specific [place] Urine 1.017 1.003 - 1.030 LAB URINALYSIS - AUTOMATED METHOD 08/13/2025 4:17 PM EDT [facility] pH, Urine 6.0 5.0 - 8.0 pH LAB URINALYSIS - AUTOMATED METHOD 08/13/2025 4:17 PM EDT [facility] Leukocytes, Urine Negative Negative LAB URINALYSIS - AUTOMATED METHOD 08/13/2025 4:17 PM EDT [facility] Nitrite, Urine Negative Negative LAB URINALYSIS - AUTOMATED METHOD 08/13/2025 4:17 PM T [facility] Protein, Urine Negative <=Trace mg/dL LAB URINALYSIS - AUTOMATED METHOD 08/13/2025 4:17 PM EDT [facility] Glucose, Urine Negative Negative mg/dL LAB URINALYSIS - AUTOMATED METHOD 08/13/2025 4:17 PM [facility] Ketones, Urine Negative Negative mg/dL LAB URINALYSIS - AUTOMATED METHOD 08/13/2025 4:17 PM [facility] Urobilinogen, Urine 0.2 0.2 - 1.0 mg/dL LAB URINALYSIS - AUTOMATED METHOD 08/13/2025 4:17 PM T [facility] Bilirubin, Urine Negative Negative LAB URINALYSIS - AUTOMATED METHOD 08/13/2025 4:17 PM [facility] Blood, Urine Negative Negative LAB URINALYSIS - AUTOMATED METHOD 08/13/2025 4:17 PM [facility] Urine Urine specimen obtained by clean catch procedure / Unknown Non-blood Collection / Unknown 08/13/2025 3:50 PM EDT 08/13/2025 3:59 PM EDT us Lawrence Han MD LAB URINE ORDERABLES Final Resul t [facility] [address] [place] [address], * (ABNORMAL) Drug abuse screen 8a panel, urine (08/13/2025 3:50 PM EDT) [facility] Amphetamine Screen, Ur Negative Negative LAB CHEMISTRY METHOD 5 4:38 PM EDT [facility] Comment:Certain OTC medicati ons containing ephedrine, phenylephrine, pseudoephedrine and phenylpropanolamine can cause false positive results. Barbiturate Screen, Ur Negative Negative LAB CHEMISTRY METHOD 5 4:38 PM EDT [facility] Benzodiazepine Screen, Ur Negative Negative LAB CHEMISTRY METHOD 5 4:38 PM EDT [facility] Cocaine Screen, Ur Negative Negative LAB CHEMISTRY METHOD 5 4:38 PM EDT [facility] Opiate Screen, Ur Positive(A ) Negative LAB CHEMISTRY METHOD 5 4:38 PM [facility] Cannabinoid (THC) Screen, Ur Negative Negative LAB CHEMISTRY METHOD 5 4:38 PM T [facility] Comment:Specimens from patie nts taking pantoprazole sodium (Protonix) have been shown to produce false positive results. Oxycodone Screen, Ur Positive(A ) Negative LAB CHEMISTRY METHOD 5 4:38 PM [facility] Fentanyl, Ur Negative Negative LAB CHEMISTRY METHOD 5 4:38 PM [facility] Urine Urine specimen obtained by clean catch procedure / Unknown Non-blood Collection / Unknown 08/13/2025 3:50 PM EDT 08/13/2025 3:59 PM EDT Narrative [facility] - 08/13/2025 4:38 PM EDT Assay cutoffs: Amphetamines 1000 ng/mL Barbiturates 200 ng/mL Benzodiazepines 200 ng/mL Cocaine 300 ng/mL Fentanyl 1 ng/mL Opiates 300 ng/mL Oxycodone 100 ng/mL THC 50 ng/mL Semi-quantitative assay for screening purposes only. Unconfirmed screening result should not be used for non-medical purposes. *ALTERNATE METHOD CONFIRMATION DONE UPON REQUEST ONLY* us Lawrence Han MD LAB URINE ORDERABLES Final Resul t Performing Organization Address City/[facility]/ZIP Co de Phone Number [facility] [address] [place] [address], [place] [phone] * Troponin I high sensitivity (08/13/2025 3:43 PM EDT) [facility] High Sensitivity Troponin I 20 <=54 ng/L LAB CHEMISTRY METHOD 08/13/2025 4:42 PM EDT [facility] Blood Venous blood specimen / Unknown Venipuncture / Unknown 08/13/2025 3:43 PM EDT 08/13/2025 3:59 PM EDT Narrative [facility] - 08/13/2025 4:42 PM EDT High levels of biotin in samples may falsely decrease hsTroponin values. Use caution when interpreting hsTroponin results in patients taking biotin who exhibit renal impairment (eGFR <60) or in patients taking more than 20 mg/day of biotin. Lawrence Han MD LAB BLOOD ORDERABLES Final Resul t Performing Organization Address [facility]/ZIP Co de Phone Number [facility] [address] [place] [address], [place] [phone] * (ABNORMAL) CBC auto differential (08/13/2025 3:43 PM EDT) [facility] WBC 10.6 4.8 - 10.8 K/mcL LAB HEMETOLOGY METHOD 08/13/2025 4:08 PM EDT [facility] RBC 3.70(L) 3.80 - 4.80 M/mcL LAB HEMETOLOGY METHOD 08/13/2025 4:08 PM EDT [facility] Hemoglobin 10.6(L) 11.5 - 16.0 g/dL LAB HEMETOLOGY METHOD 08/13/2025 4:08 PM EDT [facility] Hematocrit 33.0(L) 35.0 - 47.0 % LAB HEMETOLOGY METHOD 08/13/2025 4:08 PM EDT [facility] MCV 88.7 79.0 - 98.0 FL LAB HEMETOLOGY METHOD 08/13/2025 4:08 PM EDT [facility] MCH 28.5 27.0 - 32.0 pcg LAB HEMETOLOGY METHOD 08/13/2025 4:08 PM [facility] MCHC 32.1 32.0 - 37.0 g/dL LAB HEMETOLOGY METHOD 08/13/2025 4:08 PM EDT [facility] RDW 14.6 11.0 - 15.0 % LAB HEMETOLOGY METHOD 08/13/2025 4:08 PM [facility] Platelets 263 130 - 400 K/mcL LAB HEMETOLOGY METHOD 08/13/2025 4:08 PM [facility] MPV 10.7 7.0 - 11.0 FL LAB HEMETOLOGY METHOD 08/13/2025 4:[facility] NRBC 0.0 <1.0 % LAB HEMETOLOGY METHOD 08/13/2025 4:08 PM [facility] NRBC Absolute 0.00 <0.10 K/mcL LAB HEMETOLOGY METHOD 08/13/2025 4:08 PM [facility] Neutrophils Relative 60.6 % LAB HEMETOLOGY METHOD 08/13/2025 4:08 PM T [facility] Lymphocytes Relative 29.5 % LAB HEMETOLOGY METHOD 08/13/2025 4:08 PM [facility] Monocytes Relative 6.2 % LAB HEMETOLOGY METHOD 08/13/2025 4:08 PM [facility] Eosinophils Relative 2.8 % LAB HEMETOLOGY METHOD 08/13/2025 4:08 PM [facility] Basophils Relative 0.6 % LAB HEMETOLOGY METHOD 08/13/2025 4:08 PM EDT [facility] Immature Granulocytes Relative 0.3 % LAB HEMETOLOGY METHOD 08/13/2025 4:08 PM EDT [facility] Neutrophils Absolute 6.45 1.50 - 7.00 K/mcL LAB HEMETOLOGY METHOD 08/13/2025 4:08 PM EDT [facility] Lymphocytes Absolute 3.14 1.00 - 5.00 K/mcL LAB HEMETOLOGY METHOD 08/13/2025 4:08 PM EDT [facility] Monocytes Absolute 0.66 0.20 - 1.00 K/mcL LAB HEMETOLOGY METHOD 08/13/2025 4:08 PM EDT [facility] Eosinophils Absolute 0.30 0.00 - 0.50 K/mcL LAB HEMETOLOGY METHOD 08/13/2025 4:08 PM EDT [facility] Basophils Absolute 0.06 0.00 - 0.20 K/mcL LAB HEMETOLOGY METHOD 08/13/2025 4:08 PM EDT [facility] Immature Granulocytes Absolute 0.03 0.00 - 0.03 K/mcL LAB HEMETOLOGY METHOD 08/13/2025 4:08 PM EDT [facility] Blood Venous blood specimen / Unknown Venipuncture / Unknown 08/13/2025 3:43 PM EDT 08/13/2025 3:58 PM EDT us Lawrence Han MD LAB BLOOD ORDERABLES Final Resul t [facility] [address] [place] [address], * APTT (08/13/2025 3:43 PM EDT) aPTT 32.6 24.1 - 39.3 sec LAB COAGULATION METHOD 08/13/2025 4:19 PM EDT [facility] Blood Venous blood specimen / Unknown Venipuncture / Unknown 08/13/2025 3:43 PM EDT 08/13/2025 3:58 PM EDT us Lawrence Han MD LAB BLOOD ORDERABLES Final Resul t Performing Organization Address City/[facility]/ZIP Co de Phone Number [facility] [address] [place] [address], [place] [phone] * Protime-INR (08/13/2025 3:43 PM EDT) Pathologist [facility] Protime 11.4 10.6 - 13.9 sec LAB COAGULATION METHOD 08/13/2025 4:19 PM EDT [facility] INR 0.9 LAB COAGULATION METHOD 08/13/2025 4:19 PM EDT [facility] Blood Venous blood specimen / Unknown Venipuncture / Unknown 08/13/2025 3:43 PM EDT 08/13/2025 3:58 PM EDT us Lawrence Han MD LAB BLOOD ORDERABLES Final Resul t Performing Organization Address [facility] Co de Phone Number [facility] [address] [place] [address], [place] [phone] * hCG Qualitative (08/13/2025 3:43 PM EDT) Pathologist [facility] hCG Qual Negative Negative 08/13/2025 4:46 PM EDT [facility] Blood Venous blood specimen / Unknown Venipuncture / Unknown 08/13/2025 3:43 PM EDT 08/13/2025 3:58 PM EDT us Lawrence Han MD LAB BLOOD ORDERABLES Final Resul t Performing Organization Address City/[facility]/ZIP Co de Phone Number [facility] [address] [place] [address], [place] [phone] * B-type natriuretic peptide (08/13/2025 3:43 PM EDT) BNP 42 <=100 pcg/mL LAB CHEMISTRY METHOD 08/13/2025 4:37 PM EDT [facility] Blood Venous blood specimen / Unknown Venipuncture / Unknown 08/13/2025 3:43 PM EDT 08/13/2025 3:59 PM EDT us Lawrence Han MD LAB BLOOD ORDERABLES Final Resul t Performing Organization Address [facility]/ZIP Co de Phone Number [facility] [address] [place] [address], [place] [phone] * (ABNORMAL) Magnesium (08/13/2025 3:43 PM EDT) [facility] Magnesium 1.4(L) 1.9 - 2.6 mg/dL LAB CHEMISTRY METHOD 08/13/2025 4:35 PM EDT [facility] Blood Venous blood specimen / Unknown Venipuncture / Unknown 08/13/2025 3:43 PM EDT 08/13/2025 3:58 PM EDT us Lawrence Han MD LAB BLOOD ORDERABLES Final Resul t Performing Organization Address [facility]/ZIP Co de Phone Number [facility] [address] [place] [address], [place] [phone] * Lipase (08/13/2025 3:43 PM EDT) Pathologist [facility] Lipase 42 13 - 75 unit/L LAB CHEMISTRY METHOD 08/13/2025 4:35 PM EDT [facility] Blood Venous blood specimen / Unknown Venipuncture / Unknown 08/13/2025 3:43 PM EDT 08/13/2025 3:58 PM EDT us Lawrence Han MD LAB BLOOD ORDERABLES Final Resul t Performing Organization Address City/[facility]/ZIP Co de Phone Number [facility] [address] [place] [address], * (ABNORMAL) Venous blood gas (08/13/2025 3:43 PM EDT) pH, Jw 7.44(H) 7.32 - 7.42 pH 08/13/2025 4:01 PM EDT [facility] pCO2, Jw 45 41 - 51 mmHg 08/13/2025 4:01 PM EDT [facility] pO2, Jw 50(H) 25 - 40 mmHg 08/13/2025 4:01 PM EDT [facility] HCO3, Venous 29.1(H) 22.0 - 26.0 mmol/L 08/13/2025 4:01 PM EDT [facility] O2 Sat, Jw 84.5 % 08/13/2025 4:01 PM EDT [facility] Base Excess, Jw 5.7(H) -2.0 - 2.0 mmol/L 08/13/2025 4:01 PM EDT [facility] Blood Venous blood specimen / Unknown Venipuncture / Unknown 08/13/2025 3:43 PM EDT 08/13/2025 3:58 PM EDT Lawrence Han MD LAB BLOOD ORDERABLES Final Resul t [facility] [address] [place] [address], * (ABNORMAL) Comprehensive metabolic panel (08/13/2025 3:43 PM EDT) Sodium 137 133 - 145 mmol/L LAB CHEMISTRY METHOD 08/13/2025 4:35 PM EDT [facility] Potassium 3.7 3.5 - 5.5 mmol/L LAB CHEMISTRY METHOD 08/13/2025 4:35 PM [facility] Comment:Hemolysis present Chloride 103 96 - 110 mmol/L LAB CHEMISTRY METHOD 08/13/2025 4:35 PM [facility] CO2 27 21 - 32 mmol/L LAB CHEMISTRY METHOD 08/13/2025 4:35 PM [facility] Anion Gap 7 3 - 11 LAB CHEMISTRY METHOD 08/13/2025 4:35 PM [facility] Glucose 123(H) 70 - 100 mg/dL LAB CHEMISTRY METHOD 08/13/2025 4:35 PM [facility] BUN 23 5 - 25 mg/dL LAB CHEMISTRY METHOD 08/13/2025 4:35 PM [facility] Creatinine 0.87 0.50 - 1.10 mg/dL LAB CHEMISTRY METHOD 08/13/2025 4:35 PM [facility] eGFR 81 >=60 mL/min/1. 73m2 LAB CHEMISTRY METHOD 08/13/2025 4:35 PM [facility] Comment:Calculation based on the Chronic Kidney Disease Epidemiology Collaboration (CKD-EPI) equation refit without adjustment for race. BUN/Creatinine Ratio 26.4 LAB CHEMISTRY METHOD 08/13/2025 4:35 PM [facility] Calcium 9.1 8.5 - 10.5 mg/dL LAB CHEMISTRY METHOD 08/13/2025 4:35 PM [facility] AST (SGOT) 40 10 - 42 unit/L LAB CHEMISTRY METHOD 08/13/2025 4:35 PM [facility] ALT (SGPT) 33 10 - 60 unit/L LAB CHEMISTRY METHOD 08/13/2025 4:35 PM [facility] Alkaline Phosphatase 144(H) 42 - 121 unit/L LAB CHEMISTRY METHOD 08/13/2025 4:35 PM [facility] Total Protein 6.8 6.0 - 8.0 g/dL LAB CHEMISTRY METHOD 08/13/2025 4:35 PM EDT [facility] Albumin 3.4 3.2 - 5.0 g/dL LAB CHEMISTRY METHOD 08/13/2025 4:35 PM EDT [facility] Total Bilirubin 0.4 0.0 - 1.4 mg/dL LAB CHEMISTRY METHOD 08/13/2025 4:35 PM EDT [facility] Blood Venous blood specimen / Unknown Venipuncture / Unknown 08/13/2025 3:43 PM EDT 08/13/2025 3:58 PM EDT us Lawrence Han MD LAB BLOOD ORDERABLES Final Resul t [facility] [address] [place] [address], [place] [phone] * ECG 12 lead (08/13/2025 3:06 PM EDT) Ventricular Rate ECG 96 BPM GEMUSE Atrial Rate 96 BPM GEMUSE P-R Interval 200 ms GEMUSE QRS Duration 82 ms GEMUSE Q-T Interval 390 ms GEMUSE QTc 492 ms GEMUSE P Wave [place] 87 degrees GEMUSE R [place] 7 degrees GEMUSE T [place] 63 degrees GEMUSE ECG Interpretation Normal sinus [...] from Last 3 Months Insurance [place]ICA[place] - [place] [employer] , [address] [place] [address] Care Teams [employer] Relationship Specialty Start Date End Date Noa, MD Shereen [address] [place] [phone] PCP - General 01/13/1996
[2025-10-13 04:44] LABS: Appearance Urine Clear; Glucose Urine UA Negative (Negative); PH 6.0 (5.0-9.0); Specific Gravity - Urine >= 1.030 (1.005-1.025); UMIC TRIGGER UACC YES
[2025-10-13 04:54] LABS: Cannabinoid Screen Urine Not Detected (Not Detect)
[2025-10-13 05:07] LABS: UACC Culture Trigger YES
[2025-10-13 05:15] LABS: MANUAL DIFF FLAG NO
[2025-10-13 05:17] LABS: Hematocrit 40.2 % (37.0-47.0); Hemoglobin 13.1 g/dl (12.0-16.0); Imm Gran Abs Auto 0.02 X10*3/uL (0.00-0.03); Imm Gran Pct Auto 0.3 % (0.0-0.4); Lymphocytes Absolute Auto 1.8 X10*3/uL (1.2-4.9); Mean Corpuscular HGB Conc 32.6 g/dl (31.0-35.0); Mean Corpuscular Hemoglobin 28.2 pg (27.0-33.0); Mean Corpuscular Volume 86.6 fL (80.0-98.0); NRBC Abs Auto 0.000 X10*3/uL (0.0-0.012); NRBC Pct Auto 0.0 /100WBC (0.0-0.2); Platelet Count 298 X10*3/uL (160-400); Red Blood Count 4.64 X10*6/uL (4.20-5.50); White Blood Count 6.9 X10*3/uL (4.8-10.8)
[2025-10-13 05:26] VITALS: PULSE 119; RESP 18; O2SAT 94
[2025-10-13 05:33] LABS: INTERNATIONAL NORM RATIO 1.0 (0.9-1.1); Prothrombin Time 11.9 SEC (11.2-13.5)
[2025-10-13 05:35] LABS: D Dimer High Sensitivity 182 NG/ML
[2025-10-13 05:37] LABS: Troponin-I High Sensitivity 24.9 ng/L (<3.5-17.0)
[2025-10-13 05:43] LABS: Alanine Aminotransferase 46 U/L (0-31); Albumin Level 4.6 g/dL (3.5-5.0); Alkaline Phosphatase 164 U/L (39-117); Anion Gap 22 (12-20); Aspartate Amino Transferase 65 U/L (5-31); Blood Urea Nitrogen 12 mg/dL (9-16); Calcium 9.3 mg/dL (8.4-10.2); Carbon Dioxide 20 mmol/L (22-29); Chloride 105 mmol/L (96-108); Creatinine Clr Calc Pharmacy 82.8; Estimated Glomerular Filt Rate > 60; Lipase 42 U/L (8-78); Magnesium 1.6 mg/dL (1.6-2.6); Potassium 3.3 mmol/L (3.3-5.1); Sodium 144 mmol/L (135-145); Total Protein 7.7 g/dL (6.5-8.0)
[2025-10-13] MEDS: iohexoL 350 MG/ML 100 ML INFUS..BTL IV (06:05)
--- NOTE | 2025-10-13 08:34 | ECG_ITS ---
Test Reason : anxiety Blood Pressure : */* mmHG Vent. Rate : 121 BPM Atrial Rate : * BPM P-R Int : * ms QRS Dur : 76 ms QT Int : 428 ms P-R-T Axes : * -5 96 degrees QTcB Int : 607 ms Sinus tachycardia Nonspecific T wave abnormality Abnormal ECG When compared with ECG of 13-Oct-2025 03:42, ST no longer depressed in Anterior leads Referred By: Michael Miguel Electronically Signed By: KENNEDI BOURGEOIS MD
[2025-10-13 08:35] LABS: Troponin-I High Sensitivity 26.3 ng/L (<3.5-17.0)
[2025-10-13 09:23] VITALS: BP 146/74; PULSE 102; RESP 16; TEMP 37.1; O2SAT 95
[2025-10-13 10:20] VITALS: BP 137/77; PULSE 116; RESP 15; TEMP 37.1; O2SAT 96
[2025-10-13 11:25] VITALS: BP 137/77; PULSE 116; RESP 15; TEMP 37.1; O2SAT 96
== END 2025-10-13 11:26 | disposition home or self-care (01) ==
PROVIDERS: Emergency Provider Emergency Medicine; PCP Family Medicine
DX: F10.220 Alcohol dependence with intoxication, uncomplicated (principal); Y90.7 Blood alcohol level of 200-239 mg/100 ml; F32.A Depression, unspecified; C50.512 Malignant neoplasm of lower-outer quadrant of left female breast; I10 Essential (primary) hypertension; F17.210 Nicotine dependence, cigarettes, uncomplicated; Z79.899 Other long term (current) drug therapy
CPT/HCPCS: 36415; 71275; 80048; 80076; 80307; 81001; 83690; 83735; 84484; 85025; 85379; 85610; 87086; 93005; 96360; 99285; Q9967

== ENCOUNTER → 2025-10-13 03:40 | Outpatient (BNV) | payer MEDICAID, SELFPAY | PROVIDERS: Emergency Provider Emergency Medicine; PCP Family Medicine; Visit Provider Internal Medicine Cardiovascular Disease | DX: R00.0 Tachycardia, unspecified (principal); I44.0 Atrioventricular block, first degree | CPT/HCPCS: 93010 ==

== ENCOUNTER → 2025-10-13 04:24 | Outpatient (BNV) | payer MEDICAID, SELFPAY | PROVIDERS: Emergency Provider Emergency Medicine; PCP Family Medicine; Visit Provider Specialist | DX: C50.919 Malignant neoplasm of unspecified site of unspecified female breast (principal); R00.0 Tachycardia, unspecified; R07.9 Chest pain, unspecified; R06.02 Shortness of breath | CPT/HCPCS: 71275 ==